=== PATIENT | male | born 1960 | race African-American/Black ===

== ENCOUNTER 2017-03-07 16:36 | Inpatient (IN) | payer OTHER ==
[~2017-03-07] VITALS: Ht 182.9 cm; Wt 68.0 kg
[2017-03-07] MEDS ORDERED: Ipratropium 0.02% Inh Soln 2.5ml UD HHN ONE (16:45)
[2017-03-07] MEDS ORDERED: Albuterol ud Inhalation HHN ONE (16:45)
[2017-03-07] MEDS ORDERED: CARVEDILOL6.25 MG GT (16:51)
[2017-03-07] MEDS ORDERED: COUMADIN7.5 MG GT (16:51)
[2017-03-07] MEDS ORDERED: ASPIR 8181 MG GT (16:51)
[2017-03-07] MEDS ORDERED: AMIODARONE HCL100 MG GT (16:51)
[2017-03-07] MEDS ORDERED: ZOFRAN 4 MG4 MG/2 ML IM (16:51)
[2017-03-07] MEDS ORDERED: KEPPRA XR500 MG GT (16:51)
[2017-03-07] MEDS ORDERED: ACETAMINOP160 MG/51 GT (16:51)
[2017-03-07] MEDS ORDERED: VANCOMYCIN1 GM/2502 IVPB (16:51)
[2017-03-07] MEDS ORDERED: FUROSEMIDE40 MG GT (16:51)
[2017-03-07] MEDS ORDERED: DOCUSIL100 M1 GT (16:54)
[2017-03-07 17:10] LABS: MEAN CORPUSCULAR HEMOGLOBIN 25.3 PG (27.0-31.0); MEAN CORPUSCULAR HGB CONC 32.2 G/DL (32.0-36.0); MEAN CORPUSCULAR VOLUME 79 FL (80-99); MEAN PLATELET VOLUME 5.5 FL (6.5-10.1); PLATELET COUNT 569 K/UL (150-450); RED CELL DISTRIBUTION WIDTH 19.1 % (11.6-14.8)
[2017-03-07 17:48] LABS: ALANINE AMINOTRANSFERASE 381 U/L (3-41); ALBUMIN/GLOBULIN RATIO 0.5 (1.0-2.7); ANION GAP 12 (5-15); ASPARTATE AMINO TRANSFERASE 288 U/L (5-40); CALCIUM 9.5 mg/dL (8.6-10.2); CARBON DIOXIDE 28 mEQ/L (20-30); CHLORIDE 92 mEQ/L (98-107); CREATININE 0.6 mg/dL (0.7-1.2); GLOMERULAR FILTRATION RATE > 60 mL/min (>60); HEMOLYSIS 7; POTASSIUM 5.1 mEQ/L (3.4-4.9); SODIUM 132 mEQ/L (135-145); TOTAL PROTEIN 7.6 g/dL (6.6-8.7)
[2017-03-07 17:53] LABS: TROPONIN I < 0.30 ng/mL (<=0.30)
[2017-03-07 17:58] LABS: CKMB < 1.5 ng/mL (< 6.7)
[2017-03-07 18:00] VITALS: BP 106/69
[2017-03-07 18:17] LABS: ANISOCYTOSIS 1+; BAND NEUTROPHILS % (MANUAL) 1 % (0-8); BASOPHILS % (MANUAL) 0 % (0-2); EOSINOPHILS % (MANUAL) 1 % (0-3); HYPOCHROMASIA 1+; LYMPHOCYTES % (MANUAL) 16 % (20-45); NEUTROPHILS % (MANUAL) 72 % (45-75); PLATELET ESTIMATE INCREASED; PLATELET MORPHOLOGY NORMAL; TOTAL CELLS COUNTED 100
[2017-03-07] MEDS ORDERED: Cefepime 1gm vial ONE (18:42)
[2017-03-07] MEDS ORDERED: Azithromycin Inj IV ONE (18:43)
[2017-03-07] MEDS ORDERED: Azithromycin 500 MG in NS 275 ML IV ONE (18:45)
[2017-03-07] MEDS ORDERED: Cefepime HCl 1 GM in NS 55 ML IV ONE (18:45)
[2017-03-07 19:12] LABS: APPEARANCE,URINE CLEAR; KETONES,URINE NEGATIVE (NEGATIVE); LEUKOCYTE ESTERASE ,URINE NEGATIVE (NEGATIVE); NITRITE,URINE NEGATIVE (NEGATIVE); PH,URINE 7 (4.5-8.0); PROTEIN,URINE 1+ (NEGATIVE); UROBILINOGEN,URINE NORMAL MG/DL (0.0-1.0)
[2017-03-07 19:15] VITALS: BP 91/57
[2017-03-07 19:24] LABS: BACTERIA,URINE FEW /HPF; RBC,URINE 0-2 /HPF (0 - 0); WBC,URINE 0-2 /HPF (0 - 0)
[2017-03-07] MEDS ORDERED: LEVETIRACE100 MG/1 M GT (20:04)
[2017-03-07] MEDS ORDERED: LISINOPRIL10 MG ORAL (20:09)
[2017-03-07] MEDS ORDERED: OMEPRAZOLE40 M1 ORAL (20:09)
[2017-03-07] MEDS ORDERED: DOCUSATE SODIU100 MG ORAL (20:12)
[2017-03-07] MEDS ORDERED: NORCO 5-325 TA1 EACH ORAL (20:14)
[2017-03-07] MEDS ORDERED: SPIRONOLACTONE25 MG ORAL (20:14)
[2017-03-07] MEDS ORDERED: ZINC SULFATE220 M1 ORAL (20:17)
[2017-03-07] MEDS ORDERED: VITAMIN C500 M1 ORAL (20:17)
[2017-03-07] MEDS ORDERED: MULTI-DELYN237 ML GT (20:17)
[2017-03-07] MEDS ORDERED: LACTULOSE20 GM/301 ORAL (20:18)
[2017-03-07 20:39] VITALS: BP 91/57
[2017-03-07] MEDS ORDERED: DuoNeb 0.5-3(2.5)mg/3ml neb HHN PRN (21:30)
[2017-03-07] MEDS ORDERED: LORazepam Inj 2mg/ml 1ml IV PRN (21:30)
[2017-03-07] MEDS ORDERED: Morphine Sulfate 4mg/ml Inj IVP PRN (21:30)
[2017-03-07] MEDS ORDERED: Norco 5mg/325mg tab ORAL PRN (21:30)
[2017-03-07] MEDS ORDERED: Miralax 17gm pkt ORAL PRN (21:30)
--- NOTE | 2017-03-07 21:38 | Emergency Room Report ---
History of Present Illness General Chief Complaint: General Complaint Source: Medical Record, EMS Present Illness HPI 57-year-old male presents ED for evaluation. Patient resides in [facility]. Patient has a trach and is on humidified air. Per EMS patient was breathing rapidly today at [facility]. O2 saturations dropped. Patient was brought in for evaluation. Patient looks more comfortable on initial exam. O2 saturations okay. Crackles on exam. Patient unable to provide any additional history at this time. No reported fevers or chills. No other aggravating relieving factors. No other associated symptoms Allergies: Coded Allergies: No Known Allergies (Unverified , 03/07/17) Patient History Past Medical History: HTN, AFib, CVA/TIA Past Surgical History: other - trach Pertinent Family History: none Social History: Denies: alcohol use, drug use, smoking Immunizations: UTD Reviewed Nursing Documentation: PMH: Agreed, PSxH: Agreed Nursing Documentation-PMH Hx Cardiac Problems: Yes - a fib Hx Hypertension: Yes Hx Pacemaker: No Hx Diabetes: No Hx Cerebrovascular Accident: Yes Hx Seizures: No Review of Systems All Other Systems: negative except mentioned in HPI Physical Exam Vital Signs Date Time Temp Pulse Resp B/P Pulse Ox O2 Delivery O2 Flow Rate FiO2 03/07/17 16:22 98.4 105 22 112/74 97 Room Air 03/07/17 16:49 5.0 50 Sp02 EP Interpretation: reviewed, normal General Appearance: no apparent distress, alert, GCS 15, non-toxic Head: normocephalic Eyes: bilateral eye PERRL, bilateral eye normal inspection ENT: normal ENT inspection Neck: tracheotomy Respiratory: accessory muscle use, crackles Cardiovascular #1: regular rate, rhythm, no edema Gastrointestinal: normal inspection Rectal: deferred Genitourinary: no CVA tenderness Musculoskeletal: normal inspection Neurologic: alert, oriented x3, responsive, motor strength/tone normal, sensory intact Psychiatric: normal inspection Skin: normal inspection Lymphatic: normal inspection Medical Decision Making Diagnostic Impression: Primary Impression: Pneumonia Qualified Codes: J18.1 - Lobar pneumonia, unspecified organism Additional Impressions: CHF (congestive heart failure) Qualified Codes: I50.9 - Heart failure, unspecified Respiratory distress ER Course Hospital Course 57-year-old M presenting to ED with respiratory distress, crackes, tachynpea Differential diagnoses include: Pneumonia, CHF exacerbation, pneumothorax, fluid overload Clinical course Patient placed on stretcher. 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 After initial history and physical, I ordered nebulizer treatments. I ordered labs, IV fluids, EKG, chest x-ray, blood cultures, UA. Labs -leukocytosis noted, hemoglobin/hematocrit stable, electrolytes okay, lactate okay troponins negative, BNP elevated CXR - R middle lobe infiltrate EKG - sinus tachycardia, no acute changes patient suctioned by respiratory therapists. Tachypnea improving. abx given. Case discussed with Dr. Moses and he agreed to the patient to his service for further care and support I feel this is a highly complex case requiring extensive working including EKG/ Rhythm strip, Xray/CT/US, Blood/urine lab work, repeat exams while in ED, and administration of strong opiates/narcotics for pain control, admission to hospital or close patient follow up. Diagnosis - pneumonia, CHF, resp distress Patient admitted to telemetry in serious condition Labs Test 03/07/17 16:52 03/07/17 18:06 White Blood Count 18.0 K/UL (4.8-10.8) Red Blood Count 3.90 M/UL (4.70-6.10) Hemoglobin 9.8 G/DL (14.2-18.0) Hematocrit 30.6 % (42.0-52.0) Mean Corpuscular Volume 79 FL (80-99) Mean Corpuscular Hemoglobin 25.3 PG (27.0-31.0) Mean Corpuscular Hemoglobin Concent 32.2 G/DL (32.0-36.0) Red Cell Distribution Width 19.1 % (11.6-14.8) Platelet Count 569 K/UL (150-450) Mean Platelet Volume 5.5 FL (6.5-10.1) Neutrophils (%) (Auto) % (45.0-75.0) Lymphocytes (%) (Auto) % (20.0-45.0) Monocytes (%) (Auto) % (1.0-10.0) Eosinophils (%) (Auto) % (0.0-3.0) Basophils (%) (Auto) % (0.0-2.0) Differential Total Cells Counted 100 Neutrophils % (Manual) 72 % (45-75) Lymphocytes % (Manual) 16 % (20-45) Monocytes % (Manual) 10 % (1-10) Eosinophils % (Manual) 1 % (0-3) Basophils % (Manual) 0 % (0-2) Band Neutrophils 1 % (0-8) Platelet Estimate Increased Platelet Morphology Normal Hypochromasia 1+ Anisocytosis 1+ Sodium Level 132 mEQ/L (135-145) Potassium Level 5.1 mEQ/L (3.4-4.9) Chloride Level 92 mEQ/L (98-107) Carbon Dioxide Level 28 mEQ/L (20-30) Anion Gap 12 (5-15) Blood Urea Nitrogen 32 mg/dL (7-23) Creatinine 0.6 mg/dL (0.7-1.2) Estimat Glomerular Filtration Rate > 60 mL/min (>60) Glucose Level 114 mg/dL (74-106) Lactic Acid Level 0.90 mmol/L (0.66-2.22) Calcium Level 9.5 mg/dL (8.6-10.2) Total Bilirubin 0.3 mg/dL (0.0-1.2) Aspartate Amino Transf (AST/SGOT) 288 U/L (5-40) Alanine Aminotransferase (ALT/SGPT) 381 U/L (3-41) Alkaline Phosphatase 190 U/L (40-129) Total Creatine Kinase 57 U/L (38-174) Creatine Kinase MB < 1.5 ng/mL (< 6.7) Creatine Kinase MB Relative Index Troponin I < 0.30 ng/mL (<=0.30) Pro-B-Type Natriuretic Peptide 3179 pg/mL (0-125) Total Protein 7.6 g/dL (6.6-8.7) Albumin 2.6 g/dL (3.5-5.2) Globulin 5.0 g/dL Albumin/Globulin Ratio 0.5 (1.0-2.7) Urine Color Pale yellow Urine Appearance Clear Urine pH 7 (4.5-8.0) Urine Specific [place] 1.005 (1.005-1.035) Urine Protein 1+ (NEGATIVE) Urine Glucose (UA) Negative (NEGATIVE) Urine Ketones Negative (NEGATIVE) Urine Occult Blood Negative (NEGATIVE) Urine Nitrite Negative (NEGATIVE) Urine Bilirubin Negative (NEGATIVE) Urine Urobilinogen Normal MG/DL (0.0-1.0) Urine Leukocyte Esterase Negative (NEGATIVE) Urine RBC 0-2 /HPF (0 - 0) Urine WBC 0-2 /HPF (0 - 0) Urine Squamous Epithelial Cells None /LPF (NONE/OCC) Urine Bacteria Few /HPF (NONE) EKG Diagnostic Results Rate: tachycardiac Rhythm: NSR ST Segments: no acute changes ASA given to the pt in ED: No Rhythm Strip Diag. Results EP Interpretation: yes Rhythm: NSR, no PVC's, no ectopy Chest X-Ray Diagnostic Results EP Interpretation: Yes Findings: no pneumothorax, no acute cardiopulmonary disease, other - cardiomegaly. pacemaker. R infiltrate/atelectasis Number of Views: 1 Last Vital Signs Date Time Temp Pulse Resp B/P Pulse Ox O2 Delivery O2 Flow Rate FiO2 03/07/17 20:39 106 32 91/57 100 Trach Collar 5.0 03/07/17 19:45 50 03/07/17 19:15 97.8 Status: improved Disposition: ADMITTED INPATIENT Condition: Serious Referrals: JUAN C KNIGHT (PCP) LUCIANA PATEL M.D. Mar 07, 2017 21:38
[2017-03-07 22:43] VITALS: BP 90/58
[2017-03-07] MEDS: levETIRAcetam 500mg/5ml Liquid GT SCH (22:58)
[2017-03-07] MEDS: Heparin 5000 units/ml inj SUBQ SCH (23:00)
[2017-03-07] MEDS: Carvedilol 6.25mg Tab GT SCH (23:00)
[2017-03-08] VITALS (11 sets, daily range): BP systolic 91–129; BP diastolic 56–65
[2017-03-08] MEDS ORDERED: Piperacillin/Tazobactam 3.375 GM in NS 110 ML IVPB SCH ×2
[2017-03-08] MEDS ORDERED: Vancomycin 1gm inj IVPB ONE (03:41)
[2017-03-08] MEDS ORDERED: Vancomycin 1 GM in D5W 275 ML IVPB SCH ×2 (04:00→16:00)
[2017-03-08 05:36] LABS: BASOPHILS % (AUTO) 0.5 % (0.0-2.0); EOSINOPHILS % (AUTO) 1.3 % (0.0-3.0); LYMPHOCYTES % (AUTO) 11.7 % (20.0-45.0); MEAN CORPUSCULAR HEMOGLOBIN 23.8 PG (27.0-31.0); MEAN CORPUSCULAR HGB CONC 30.6 G/DL (32.0-36.0); MEAN CORPUSCULAR VOLUME 78 FL (80-99); MEAN PLATELET VOLUME 5.6 FL (6.5-10.1); MONOCYTES % (AUTO) 8.5 % (1.0-10.0); NEUTROPHILS % (AUTO) 78.1 % (45.0-75.0); PLATELET COUNT 639 K/UL (150-450); RED BLOOD COUNT 4.16 M/UL (4.70-6.10); RED CELL DISTRIBUTION WIDTH 19.6 % (11.6-14.8); WHITE BLOOD COUNT 16.4 K/UL (4.8-10.8)
[2017-03-08 05:46] LABS: ANION GAP 14 (5-15); CALCIUM 9.3 mg/dL (8.6-10.2); CARBON DIOXIDE 26 mEQ/L (20-30); CHLORIDE 96 mEQ/L (98-107); CREATININE 0.5 mg/dL (0.7-1.2); GLOMERULAR FILTRATION RATE > 60 mL/min (>60); HEMOLYSIS 0; PHOSPHORUS 3.8 mg/dL (2.5-4.8); POTASSIUM 5.1 mEQ/L (3.4-4.9); SODIUM 136 mEQ/L (135-145)
[2017-03-08] MEDS ORDERED: Zosyn 4.5gm inj ONE (05:46)
[2017-03-08] MEDS: Zosyn 4.5gm q8h **Extended infusion IVPB SCH ×6 (05:49→21:48)
[2017-03-08] MEDS: Amiodarone 200mg tab GT SCH (08:47)
[2017-03-08] MEDS: Pantoprazole Inj IV SCH (08:47)
[2017-03-08] MEDS: Carvedilol 6.25mg Tab GT SCH ×2 (08:47→21:49)
[2017-03-08] MEDS: levETIRAcetam 500mg/5ml Liquid GT SCH ×2 (08:47→21:49)
[2017-03-08] MEDS: Zinc Sulfate 220mg cap ORAL SCH (08:47)
[2017-03-08] MEDS: Aspirin Baby 81mg GT SCH (08:47)
[2017-03-08] MEDS: Heparin 5000 units/ml inj SUBQ SCH (08:55)
--- NOTE | 2017-03-08 08:55 | History and Physical ---
History of Present Illness General Date patient seen: Mar 08, 2017 Reason for Hospitalization: General Complaint Present Illness HPI 57-year-old male with hx of chronic Trach, Peg, skilled nursing resident presented to ED for evaluation of breathing rapidly at skilled nursing. His O2 saturations dropped. Patient unable to provide any additional history at this time. No reported fevers or chills. Pt' cxr showed bilateral infiltrate. Allergies: Coded Allergies: No Known Allergies (Unverified , 03/07/17) Medication History Scheduled Amiodarone Hcl (Amiodarone Hcl), 200 MG GT DAILY, (Reported) Ascorbic Acid* (Vitamin C*), 500 MG ORAL DAILY, (Reported) Aspirin* (Aspir 81*), 81 MG GT DAILY, (Reported) Carvedilol* (Carvedilol*), 6.25 MG GT BID, (Reported) Docusate Sodium* (Docusate Sodium*), 100 MG ORAL TWICE A DAY, (Reported) Furosemide* (Lasix*), 60 MG GT DAILY, (Reported) Levetiracetam* (Levetiracetam*), 500 MG GT BID, (Reported) Lisinopril* (Lisinopril*), 10 MG ORAL DAILY, (Reported) Multivitamin Liquid* (Multi-Delyn*), 5 ML GT DAILY, (Reported) Omeprazole (Omeprazole), 40 MG ORAL DAILY, (Reported) Spironolactone* (Aldactone*), 25 MG ORAL DAILY, (Reported) Warfarin Sod (Coumadin*), 7.5 MG GT DAILY, (Reported) Zinc Sulfate (Zinc Sulfate*), 220 MG ORAL DAILY, (Reported) Scheduled PRN Hydrocodone Bit/Acetaminophen 5-325* ([place] 5-325*), 1 TAB ORAL Q4H PRN for For Pain, (Reported) Miscellaneous Medications Lactulose (Lactulose*), 30 ML ORAL, (Reported) Discontinued Medications Acetaminophen* (Acetaminophen*), 650 MG GT Q6H PRN for Mild Pain/Temp > 100.5, ( Reported) Discontinued Reason: Pt stopped taking med Levetiracetam (Keppra Xr), 1,000 MG GT BID, (Reported) Discontinued Reason: Prescription changed Ondansetron* (Zofran*), 4 MG IM Q6H PRN for Nausea & Vomiting, (Reported) Discontinued Reason: Pt stopped taking med Vancomycin Hcl/D5w (Vancomycin-D5w 1 G/250 Ml), 1 GM IVPB EVERY 12 HOURS, ( Reported) Discontinued Reason: Pt stopped taking med Patient History Healthcare decision maker N Resuscitation status Advanced Directive on File Past Medical/Surgical History Past Medical/Surgical History: (1) Chronic respiratory acidosis (2) Feeding by G-tube Review of Systems All Other Systems: negative except mentioned in HPI Physical Exam General Appearance: cachetic Lines, tubes and drains: peripheral, trach, gtube HEENT: normocephalic Neck: non-tender, normal alignment Respiratory/Chest: chest wall non-tender, lungs clear Cardiovascular/Chest: normal peripheral pulses Abdomen: normal bowel sounds, non tender Genitourinary/Rectal: normal genital exam, normal rectal exam Last 24 Hour Vital Signs Date Time Temp Pulse Resp B/P Pulse Ox O2 Delivery O2 Flow Rate FiO2 03/08/17 07:18 98 Trach Collar 12.0 50 03/08/17 07:18 Trach Collar 5.0 50 03/08/17 07:05 97.1 99 33 97/59 99 Trach Collar 5.0 03/08/17 05:56 97.9 97 25 94/58 100 Room Air 03/08/17 04:11 99 28 95/65 99 Trach Collar 5.0 03/08/17 03:09 100 29 95/59 99 Trach Collar 5.0 03/08/17 02:26 98.4 101 31 100/56 100 Trach Collar 5.0 03/08/17 02:00 Trach Collar 5.0 50 03/08/17 02:00 100 Trach Collar 12.0 50 03/08/17 01:11 105 32 91/56 100 Trach Collar 5.0 03/07/17 22:43 97.8 106 35 90/58 100 Trach Collar 5.0 03/07/17 20:39 106 32 91/57 100 Trach Collar 5.0 03/07/17 19:45 100 Trach Collar 12.0 50 03/07/17 19:15 97.8 107 33 91/57 100 Trach Collar 5.0 03/07/17 18:00 98.4 107 32 106/69 100 Trach Collar 5.0 50 03/07/17 17:54 Trach Collar 5.0 50 03/07/17 17:01 108 32 100 Trach Collar 8.0 03/07/17 17:00 105 35 Trach Collar 03/07/17 16:49 100 Trach Collar 5.0 50 03/07/17 16:22 98.4 105 22 112/74 97 Room Air Intake and Output 03/07/17 03/08/17 18:59 06:59 Intake Total 500 ml 1215 ml Output Total 1040 ml Balance 500 ml 175 ml Intake IV Total 500 ml 1215 ml Output Urine Total 1040 ml Laboratory Tests Test 03/07/17 16:52 03/07/17 18:06 03/08/17 04:01 White Blood Count 18.0 K/UL (4.8-10.8) H 16.4 K/UL (4.8-10.8) H Red Blood Count 3.90 M/UL (4.70-6.10) L 4.16 M/UL (4.70-6.10) L Hemoglobin 9.8 G/DL (14.2-18.0) L 9.9 G/DL (14.2-18.0) L Hematocrit 30.6 % (42.0-52.0) L 32.3 % (42.0-52.0) L Mean Corpuscular Volume 79 FL (80-99) L 78 FL (80-99) L Mean Corpuscular Hemoglobin 25.3 PG (27.0-31.0) L 23.8 PG (27.0-31.0) L Mean Corpuscular Hemoglobin Concent 32.2 G/DL (32.0-36.0) 30.6 G/DL (32.0-36.0) L Red Cell Distribution Width 19.1 % (11.6-14.8) H 19.6 % (11.6-14.8) H Platelet Count 569 K/UL (150-450) H 639 K/UL (150-450) H Mean Platelet Volume 5.5 FL (6.5-10.1) L 5.6 FL (6.5-10.1) L Neutrophils (%) (Auto) % (45.0-75.0) 78.1 % (45.0-75.0) H Lymphocytes (%) (Auto) % (20.0-45.0) 11.7 % (20.0-45.0) L Monocytes (%) (Auto) % (1.0-10.0) 8.5 % (1.0-10.0) Eosinophils (%) (Auto) % (0.0-3.0) 1.3 % (0.0-3.0) Basophils (%) (Auto) % (0.0-2.0) 0.5 % (0.0-2.0) Differential Total Cells Counted 100 Neutrophils % (Manual) 72 % (45-75) Lymphocytes % (Manual) 16 % (20-45) L Monocytes % (Manual) 10 % (1-10) Eosinophils % (Manual) 1 % (0-3) Basophils % (Manual) 0 % (0-2) Band Neutrophils 1 % (0-8) Platelet Estimate Increased H Platelet Morphology Normal Hypochromasia 1+ Anisocytosis 1+ Sodium Level 132 mEQ/L (135-145) L 136 mEQ/L (135-145) Potassium Level 5.1 mEQ/L (3.4-4.9) H 5.1 mEQ/L (3.4-4.9) H Chloride Level 92 mEQ/L (98-107) L 96 mEQ/L (98-107) L Carbon Dioxide Level 28 mEQ/L (20-30) 26 mEQ/L (20-30) Anion Gap 12 (5-15) 14 (5-15) Blood Urea Nitrogen 32 mg/dL (7-23) H 29 mg/dL (7-23) H Creatinine 0.6 mg/dL (0.7-1.2) L 0.5 mg/dL (0.7-1.2) L Estimat Glomerular Filtration Rate > 60 mL/min (>60) > 60 mL/min (>60) Glucose Level 114 mg/dL (74-106) H 111 mg/dL (74-106) H Lactic Acid Level 0.90 mmol/L (0.66-2.22) Calcium Level 9.5 mg/dL (8.6-10.2) 9.3 mg/dL (8.6-10.2) Total Bilirubin 0.3 mg/dL (0.0-1.2) Aspartate Amino Transf (AST/SGOT) 288 U/L (5-40) H Alanine Aminotransferase (ALT/SGPT) 381 U/L (3-41) H Alkaline Phosphatase 190 U/L (40-129) H Total Creatine Kinase 57 U/L (38-174) Creatine Kinase MB < 1.5 ng/mL (< 6.7) Creatine Kinase MB Relative Index Troponin I < 0.30 ng/mL (<=0.30) Pro-B-Type Natriuretic Peptide 3179 pg/mL (0-125) H Total Protein 7.6 g/dL (6.6-8.7) Albumin 2.6 g/dL (3.5-5.2) L 2.3 g/dL (3.5-5.2) L Globulin 5.0 g/dL Albumin/Globulin Ratio 0.5 (1.0-2.7) L Urine Color Pale yellow Urine Appearance Clear Urine pH 7 (4.5-8.0) Urine Specific [place] 1.005 (1.005-1.035) Urine Protein 1+ (NEGATIVE) H Urine Glucose (UA) Negative (NEGATIVE) Urine Ketones Negative (NEGATIVE) Urine Occult Blood Negative (NEGATIVE) Urine Nitrite Negative (NEGATIVE) Urine Bilirubin Negative (NEGATIVE) Urine Urobilinogen Normal MG/DL (0.0-1.0) Urine Leukocyte Esterase Negative (NEGATIVE) Urine RBC 0-2 /HPF (0 - 0) H Urine WBC 0-2 /HPF (0 - 0) Urine Squamous Epithelial Cells None /LPF (NONE/OCC) Urine Bacteria Few /HPF (NONE) Phosphorus Level 3.8 mg/dL (2.5-4.8) Height (Feet): 6 Height (Inches): 0.00 Weight (Pounds): 150 Medications Current Medications Medications (Trade) Dose Ordered Sig/Tameka Route PRN Reason Start Time Stop Time Status Last Admin Dose Admin Acetaminophen (Tylenol) 650 mg Q4H PRN ORAL FEVER 03/07/17 21:30 04/06/17 21:29 Acetaminophen/ Hydrocodone Bitart ([place] 5/325) 1 tab Q4H PRN ORAL Moderate Pain (Pain Scale 4-6) 03/07/17 21:30 03/14/17 21:29 Albuterol/ Ipratropium 3 ml 3 ml EVERY 4 HOURS PRN HHN Shortness of Breath 03/07/17 21:30 03/12/17 21:29 Amiodarone HCl (Cordarone) 200 mg DAILY GT 03/08/17 09:00 04/07/17 08:59 Aspirin (ASA) 81 mg DAILY GT 03/08/17 09:00 04/07/17 08:59 Carvedilol (Coreg) 6.25 mg Q12HR GT 03/07/17 23:00 04/06/17 22:59 Dextrose (Dextrose 50%) STAT PRN IV Hypoglycemia 03/07/17 21:30 04/06/17 21:29 Heparin Sodium (Porcine) (Heparin 5000 units/ml) 5,000 units EVERY 12 HOURS SUBQ 03/07/17 23:00 04/06/17 22:59 03/07/17 23:00 Levetiracetam (Keppra) 500 mg Q12HR GT 03/07/17 23:00 04/06/17 22:59 03/07/17 22:58 Lorazepam (Ativan 2mg/ml 1ml) 2 mg EVERY 2 HOURS PRN IV For Anxiety 03/07/17 21:30 03/14/17 21:29 Morphine Sulfate (Morphine Sulfate) 4 mg EVERY 4 HOURS PRN IVP Severe Pain (Pain Scale 7-10) 03/07/17 21:30 03/14/17 21:29 Ondansetron HCl (Zofran) 4 mg Q6H PRN IVP Nausea & Vomiting 03/07/17 21:30 04/06/17 21:29 Pantoprazole 40 mg 40 mg DAILY IV 03/08/17 09:00 04/07/17 08:59 Piperacillin Sod/ Tazobactam Sod/ Dextrose (Zosyn/D5W) 110 ml @ 27.5 mls/hr EVERY 8 HOURS IVPB 03/08/17 06:00 03/13/17 05:59 03/08/17 05:49 Polyethylene Glycol (Miralax) 17 gm DAILYPRN PRN ORAL Constipation 03/07/17 21:30 04/06/17 21:29 Vancomycin HCl/ Dextrose (Vancomycin/D5W) 275 ml @ 183.3 mls/ hr Q8H IVPB 03/08/17 04:00 03/13/17 03:59 03/08/17 03:45 Zinc Sulfate (Zinc Sulfate) 220 mg DAILY ORAL 03/08/17 09:00 04/07/17 08:59 Assessment/Plan Problem List: (1) Respiratory distress ICD Codes: R06.00 - Dyspnea, unspecified SNOMED: 758112755 (2) Chronic respiratory acidosis ICD Codes: E87.2 - Acidosis SNOMED: 9310565 (3) Feeding by G-tube ICD Codes: Z93.1 - Gastrostomy status SNOMED: 550671927, 721852795 (4) CHF (congestive heart failure) ICD Codes: I50.9 - Heart failure, unspecified SNOMED: 63148054 Qualifiers: Qualified Codes: I50.9 - Heart failure, unspecified (5) Pneumonia ICD Codes: J18.9 - Pneumonia, unspecified organism SNOMED: 266452989 Qualifiers: Qualified Codes: J18.1 - Lobar pneumonia, unspecified organism Assessment/Plan IV antibiotics check cultures f/u wbc cardio to see. dvt respiratory treatment ODETET SMILEY Mar 08, 2017 08:55
--- NOTE | 2017-03-08 10:35 | Diagnostic Imaging Report ---
Indications: Shortness of breath Technique: Portable AP chest Findings: Comparison: None Cardiac silhouette enlarged. Pulmonary vascular redistribution. Bilateral interstitial infiltrates. Patchy consolidative opacity lateral right midlung, adjacent to right minor fissure. No definite pleural abnormality. Tracheostomy tube, left chest wall pacemaker, right upper chest the PICC, abdominal skin sherrill and soft tissue drain all in place. IMPRESSION: Findings suggest congestive heart failure Subsegmental atelectasis versus focal pneumonia right midlung Lines and tubes in place as described Pacemaker Recent abdominal surgery
[2017-03-08 11:56] LABS: INR 2.8 (0.9-1.1); PROTHROMBIN TIME 29.8 SEC (9.30-11.50)
[2017-03-08] MEDS ORDERED: Acetaminophen 650mg/20.3ml NG PRN (16:00)
[2017-03-08] MEDS: Acetaminophen 650mg/20.3ml NG PRN (16:27)
--- NOTE | 2017-03-08 16:30 | Cardiac Electrophysiology PN ---
Subjective Subjective Dictated:[id number] Well known to me from recent hospitaliozation at [facility] CHF, S[place] ICD, PAF, Endocarditis, Anoxic encephalopathy,Trach/PEG/ PNA Objective Last 24 Hour Vital Signs Date Time Temp Pulse Resp B/P Pulse Ox O2 Delivery O2 Flow Rate FiO2 03/08/17 16:00 100.9 111 19 102/63 99 Trach Collar 35 03/08/17 13:18 95 Trach Collar 10.0 40 03/08/17 13:18 Trach Collar 10.0 40 03/08/17 12:08 98.4 101 21 112/58 98 Trach Collar 35 03/08/17 12:00 102 03/08/17 08:47 105 129/59 03/08/17 08:00 106 03/08/17 08:00 98.7 105 20 129/59 95 Trach Collar 35 03/08/17 07:45 97.1 99 33 97/59 98 Trach Collar 12.0 50 03/08/17 07:18 98 Trach Collar 12.0 50 03/08/17 07:18 Trach Collar 5.0 50 03/08/17 07:05 97.1 99 33 97/59 99 Trach Collar 5.0 03/08/17 05:56 97.9 97 25 94/58 100 Room Air 03/08/17 04:11 99 28 95/65 99 Trach Collar 5.0 03/08/17 03:09 100 29 95/59 99 Trach Collar 5.0 03/08/17 02:26 98.4 101 31 100/56 100 Trach Collar 5.0 03/08/17 02:00 Trach Collar 5.0 50 03/08/17 02:00 100 Trach Collar 12.0 50 03/08/17 01:11 105 32 91/56 100 Trach Collar 5.0 03/07/17 22:43 97.8 106 35 90/58 100 Trach Collar 5.0 03/07/17 20:39 106 32 91/57 100 Trach Collar 5.0 03/07/17 19:45 100 Trach Collar 12.0 50 03/07/17 19:15 97.8 107 33 91/57 100 Trach Collar 5.0 03/07/17 18:00 98.4 107 32 106/69 100 Trach Collar 5.0 50 03/07/17 17:54 Trach Collar 5.0 50 03/07/17 17:01 108 32 100 Trach Collar 8.0 4/21/17 17:00 105 35 Trach Collar 03/07/17 16:49 100 Trach Collar 5.0 50 Intake and Output 03/07/17 03/08/17 19:00 07:00 Intake Total 500 ml 1215 ml Output Total 1040 ml Balance 500 ml 175 ml IV Total 500 ml 1215 ml Output Urine Total 1040 ml Laboratory Tests Test 03/07/17 16:52 03/07/17 18:06 03/08/17 04:01 03/08/17 11:30 White Blood Count 18.0 K/UL (4.8-10.8) H 16.4 K/UL (4.8-10.8) H Red Blood Count 3.90 M/UL (4.70-6.10) L 4.16 M/UL (4.70-6.10) L Hemoglobin 9.8 G/DL (14.2-18.0) L 9.9 G/DL (14.2-18.0) L Hematocrit 30.6 % (42.0-52.0) L 32.3 % (42.0-52.0) L Mean Corpuscular Volume 79 FL (80-99) L 78 FL (80-99) L Mean Corpuscular Hemoglobin 25.3 PG (27.0-31.0) L 23.8 PG (27.0-31.0) L Mean Corpuscular Hemoglobin Concent 32.2 G/DL (32.0-36.0) 30.6 G/DL (32.0-36.0) L Red Cell Distribution Width 19.1 % (11.6-14.8) H 19.6 % (11.6-14.8) H Platelet Count 569 K/UL (150-450) H 639 K/UL (150-450) H Mean Platelet Volume 5.5 FL (6.5-10.1) L 5.6 FL (6.5-10.1) L Neutrophils (%) (Auto) % (45.0-75.0) 78.1 % (45.0-75.0) H Lymphocytes (%) (Auto) % (20.0-45.0) 11.7 % (20.0-45.0) L Monocytes (%) (Auto) % (1.0-10.0) 8.5 % (1.0-10.0) Eosinophils (%) (Auto) % (0.0-3.0) 1.3 % (0.0-3.0) Basophils (%) (Auto) % (0.0-2.0) 0.5 % (0.0-2.0) Differential Total Cells Counted 100 Neutrophils % (Manual) 72 % (45-75) Lymphocytes % (Manual) 16 % (20-45) L Monocytes % (Manual) 10 % (1-10) Eosinophils % (Manual) 1 % (0-3) Basophils % (Manual) 0 % (0-2) Band Neutrophils 1 % (0-8) Platelet Estimate Increased H Platelet Morphology Normal Hypochromasia 1+ Anisocytosis 1+ Sodium Level 132 mEQ/L (135-145) L 136 mEQ/L (135-145) Potassium Level 5.1 mEQ/L (3.4-4.9) H 5.1 mEQ/L (3.4-4.9) H Chloride Level 92 mEQ/L (98-107) L 96 mEQ/L (98-107) L Carbon Dioxide Level 28 mEQ/L (20-30) 26 mEQ/L (20-30) Anion Gap 12 (5-15) 14 (5-15) Blood Urea Nitrogen 32 mg/dL (7-23) H 29 mg/dL (7-23) H Creatinine 0.6 mg/dL (0.7-1.2) L 0.5 mg/dL (0.7-1.2) L Estimat Glomerular Filtration Rate > 60 mL/min (>60) > 60 mL/min (>60) Glucose Level 114 mg/dL (74-106) H 111 mg/dL (74-106) H Lactic Acid Level 0.90 mmol/L (0.66-2.22) Calcium Level 9.5 mg/dL (8.6-10.2) 9.3 mg/dL (8.6-10.2) Total Bilirubin 0.3 mg/dL (0.0-1.2) Aspartate Amino Transf (AST/SGOT) 288 U/L (5-40) H Alanine Aminotransferase (ALT/SGPT) 381 U/L (3-41) H Alkaline Phosphatase 190 U/L (40-129) H Total Creatine Kinase 57 U/L (38-174) Creatine Kinase MB < 1.5 ng/mL (< 6.7) Creatine Kinase MB Relative Index Troponin I < 0.30 ng/mL (<=0.30) Pro-B-Type Natriuretic Peptide 3179 pg/mL (0-125) H Total Protein 7.6 g/dL (6.6-8.7) Albumin 2.6 g/dL (3.5-5.2) L 2.3 g/dL (3.5-5.2) L Globulin 5.0 g/dL Albumin/Globulin Ratio 0.5 (1.0-2.7) L Urine Color Pale yellow Urine Appearance Clear Urine pH 7 (4.5-8.0) Urine Specific [place] 1.005 (1.005-1.035) Urine Protein 1+ (NEGATIVE) H Urine Glucose (UA) Negative (NEGATIVE) Urine Ketones Negative (NEGATIVE) Urine Occult Blood Negative (NEGATIVE) Urine Nitrite Negative (NEGATIVE) Urine Bilirubin Negative (NEGATIVE) Urine Urobilinogen Normal MG/DL (0.0-1.0) Urine Leukocyte Esterase Negative (NEGATIVE) Urine RBC 0-2 /HPF (0 - 0) H Urine WBC 0-2 /HPF (0 - 0) Urine Squamous Epithelial Cells None /LPF (NONE/OCC) Urine Bacteria Few /HPF (NONE) Phosphorus Level 3.8 mg/dL (2.5-4.8) Prothrombin Time 29.8 SEC (9.30-11.50) H Prothromb Time International Ratio 2.8 (0.9-1.1) H DAMIR POOL Mar 08, 2017 16:30
[2017-03-08] MEDS ORDERED: Warfarin Sodium 7.5mg ORAL SCH (17:00)
[2017-03-08] MEDS: Vancomycin 750 MG in D5W 275 ML IVPB SCH (18:56)
[2017-03-09] VITALS: BP 97/55
--- NOTE | 2017-03-09 02:58 | Consultation ---
DATE OF CONSULTATION: CARDIOLOGY CONSULTATION CONSULTING PHYSICIAN: Tucker Ward M.D. REFERRING PHYSICIAN: Shani Moses M.D. REASON FOR CONSULTATION: Management of congestive heart failure. Evaluation of the patient's defibrillator. HISTORY OF PRESENT ILLNESS: The patient is a 57-year-old gentleman, who I am quite familiar with from his recent admission to [facility]. The patient has a history of hypertension, coronary artery disease as well as history of severe cardiomyopathy and history of [employer] Flo defibrillator implantation in the past. He also has a history of endocarditis. They are given transesophageal echocardiogram. The patient had pulseless electrical activity last month. He also has a history of liver cirrhosis, status post paracentesis. Currently, the patient has respiratory failure, status post tracheostomy and history of dysphagia, status post PEG placement. The patient was transferred from care home for evaluation of dropping O2 saturation as well as breathing rapidly. The patient was admitted for possible pneumonia and a Cardiology consultation was obtained for further evaluation. At the time of my evaluation, he was nonverbal and was unable to provide any meaningful information. PAST MEDICAL HISTORY: Include: 1. Hypertension. 2. Severe cardiomyopathy. 3. History of paroxysmal atrial fibrillation. 4. Status post pulseless activity during transesophageal echocardiogram. 5. Status post [employer] Flo defibrillator implantation. 6. status post tracheostomy. 7. Dysphagia, status post PEG placement. 8. Anoxic encephalopathy. REVIEW OF SYSTEMS: Cannot be obtained. PHYSICAL EXAMINATION: VITAL SIGNS: Blood pressure is 102/63, pulse 110, and temperature 100.9 degrees. HEAD AND NECK: Shows no JVD. Status post tracheostomy with a trach collar. CARDIOVASCULAR: Shows regular S1 and S2. No gallop. The defibrillator is in subclavian. ABDOMEN: Soft. There is a G-tube. EXTREMITIES: No pitting edema. LABORATORY DATA: White count 16.5, hemoglobin of 10, hematocrit 32.3, and platelets 239,000. Sodium 133, potassium 5.1, BUN of 29, creatinine 0.5, and glucose of 111. Troponin is negative. BNP 3179. ASSESSMENT AND PLAN: 1. Congestive heart failure. The patient has a history of cardiomyopathy. His BNP is more than 3000. We will hold off the diuretic at this time as the patient does not have any lower extremity edema. The patient has history of congestive heart failure and in view of the patient's pneumonia, the patient has risk of septic shock. 2. Cardiomyopathy, echocardiogram will be repeated. Continue Coreg 6.25 mg twice a day, Zestoril, and Aldactone. 3. Atrial fibrillation. Currently in sinus rhythm. Continue Coreg, amiodarone, and Coumadin per pharmacy. 4. Status post pulseless electrical activity during transesophageal echocardiogram per Dr. Castle with no clear etiology. The patient was ruled out for myocardial infarction as well as pulmonary embolus. 5. Status post tracheostomy, turned off the ventilator. 6. Dysphagia, status post percutaneous endoscopic gastrostomy placement. 7. Anoxic encephalopathy. 8. Pneumonia, on broad-spectrum intravenous antibiotics per Dr. Moses, vancomycin and Zosyn. Thank you very much, Dr. Moses, for allowing me to participate in the care of this patient. Please do not hesitate to contact me for any questions regarding my evaluation. Tucker Ward M.D. DR: Artis JOB#: [id number] CC:
[2017-03-09 04:00] VITALS: BP 96/56
[2017-03-09] MEDS: Vancomycin 750 MG in D5W 275 ML IVPB SCH ×2 (04:20→12:19)
[2017-03-09] MEDS: Zosyn 4.5gm q8h **Extended infusion IVPB SCH ×6 (06:13→21:23)
[2017-03-09 08:33] LABS: MEAN CORPUSCULAR HEMOGLOBIN 23.8 PG (27.0-31.0); MEAN CORPUSCULAR HGB CONC 30.3 G/DL (32.0-36.0); MEAN CORPUSCULAR VOLUME 78 FL (80-99); MEAN PLATELET VOLUME 5.8 FL (6.5-10.1); PLATELET COUNT 727 K/UL (150-450); RED BLOOD COUNT 3.95 M/UL (4.70-6.10); WHITE BLOOD COUNT 18.5 K/UL (4.8-10.8)
[2017-03-09 08:41] LABS: INR 4.1 (0.9-1.1); PROTHROMBIN TIME 44.1 SEC (9.30-11.50)
[2017-03-09 08:47] VITALS: BP 97/56
[2017-03-09 08:47] LABS: TROPONIN I < 0.30 ng/mL (<=0.30)
[2017-03-09] MEDS: Acetaminophen 650mg/20.3ml NG PRN (08:50)
[2017-03-09] MEDS: Pantoprazole Inj IV SCH (08:50)
[2017-03-09] MEDS: Amiodarone 200mg tab GT SCH (08:51)
[2017-03-09] MEDS: Aspirin Baby 81mg GT SCH (08:51)
[2017-03-09] MEDS: Zinc Sulfate 220mg cap ORAL SCH (08:51)
[2017-03-09] MEDS: Carvedilol 6.25mg Tab GT SCH ×2 (08:51→21:00)
[2017-03-09] MEDS: levETIRAcetam 500mg/5ml Liquid GT SCH ×2 (08:51→21:23)
[2017-03-09 08:53] LABS: ALANINE AMINOTRANSFERASE 297 U/L (3-41); ALBUMIN/GLOBULIN RATIO 0.4 (1.0-2.7); ANION GAP 14 (5-15); ASPARTATE AMINO TRANSFERASE 224 U/L (5-40); CALCIUM 9.1 mg/dL (8.6-10.2); CARBON DIOXIDE 26 mEQ/L (20-30); CHLORIDE 98 mEQ/L (98-107); CREATININE 0.7 mg/dL (0.7-1.2); GLOMERULAR FILTRATION RATE > 60 mL/min (>60); HEMOLYSIS 0; POTASSIUM 4.4 mEQ/L (3.4-4.9); SODIUM 138 mEQ/L (135-145); TOTAL PROTEIN 7.6 g/dL (6.6-8.7)
[2017-03-09] MEDS ORDERED: Lisinopril 10mg tab GT SCH (09:00)
--- NOTE | 2017-03-09 09:45 | Infectious Diseases Prog Note ---
Assessment/Plan Assessment/Plan ID consult dictated # [id number] Subjective Allergies: Coded Allergies: No Known Allergies (Unverified , 03/07/17) Objective Vital Signs Last 24 Hour Vital Signs Date Time Temp Pulse Resp B/P Pulse Ox O2 Delivery O2 Flow Rate FiO2 03/09/17 08:51 97/56 03/09/17 08:51 108 97/56 03/09/17 08:47 98.2 108 20 97/56 97 T-piece 10.0 03/09/17 05:13 100 03/09/17 04:00 98.6 102 21 96/56 99 03/09/17 00:54 99 03/09/17 00:50 97 T-piece 10.0 40 03/09/17 00:50 T-piece 10.0 40 03/09/17 00:00 97.8 104 19 97/55 97 03/08/17 22:50 111 03/08/17 21:49 102 94/56 03/08/17 21:06 97.9 102 20 94/56 97 Mechanical Ventilator 03/08/17 20:00 99.5 100 20 103/61 96 Trach Collar 35 03/08/17 20:00 99.5 100 28 103/61 96 T-piece 03/08/17 19:25 95 T-piece 10.0 40 03/08/17 19:25 T-piece 10.0 40 03/08/17 16:27 100.9 03/08/17 16:00 100.9 111 19 102/63 99 Trach Collar 35 03/08/17 16:00 111 03/08/17 13:18 95 Trach Collar 10.0 40 03/08/17 13:18 Trach Collar 10.0 40 03/08/17 12:08 98.4 101 21 112/58 98 Trach Collar 35 03/08/17 12:00 102 Height (Feet): 6 Height (Inches): 0.00 Weight (Pounds): 150 Microbiology Date/Time Source Procedure Growth Status 03/07/17 17:04 Blood Blood Culture - Preliminary NO GROWTH AFTER 24 HOURS Resulted 03/07/17 17:04 Blood Blood Culture - Preliminary NO GROWTH AFTER 24 HOURS Resulted 03/07/17 19:53 Nasal Nares MRSA Culture - Final NO METHICILLIN RESISTANT STAPH AUREUS... Complete 03/07/17 19:53 Rectum VRE Culture - Final Enterococcus Faecalis - Vre Complete Laboratory Tests Test 03/08/17 11:30 03/09/17 06:50 Prothrombin Time 29.8 SEC (9.30-11.50) H 44.1 SEC (9.30-11.50) H Prothromb Time International Ratio 2.8 (0.9-1.1) H 4.1 (0.9-1.1) H White Blood Count 18.5 K/UL (4.8-10.8) H Red Blood Count 3.95 M/UL (4.70-6.10) L Hemoglobin 9.4 G/DL (14.2-18.0) L Hematocrit 31.0 % (42.0-52.0) L Mean Corpuscular Volume 78 FL (80-99) L Mean Corpuscular Hemoglobin 23.8 PG (27.0-31.0) L Mean Corpuscular Hemoglobin Concent 30.3 G/DL (32.0-36.0) L Red Cell Distribution Width 20.0 % (11.6-14.8) H Platelet Count 727 K/UL (150-450) H Mean Platelet Volume 5.8 FL (6.5-10.1) L Neutrophils (%) (Auto) % (45.0-75.0) Lymphocytes (%) (Auto) % (20.0-45.0) Monocytes (%) (Auto) % (1.0-10.0) Eosinophils (%) (Auto) % (0.0-3.0) Basophils (%) (Auto) % (0.0-2.0) Neutrophils % (Manual) Pending Lymphocytes % (Manual) Pending Platelet Estimate Pending Platelet Morphology Pending Sodium Level 138 mEQ/L (135-145) Potassium Level 4.4 mEQ/L (3.4-4.9) Chloride Level 98 mEQ/L (98-107) Carbon Dioxide Level 26 mEQ/L (20-30) Anion Gap 14 (5-15) Blood Urea Nitrogen 25 mg/dL (7-23) H Creatinine 0.7 mg/dL (0.7-1.2) Estimat Glomerular Filtration Rate > 60 mL/min (>60) Glucose Level 129 mg/dL (74-106) H Calcium Level 9.1 mg/dL (8.6-10.2) Total Bilirubin 0.3 mg/dL (0.0-1.2) Aspartate Amino Transf (AST/SGOT) 224 U/L (5-40) H Alanine Aminotransferase (ALT/SGPT) 297 U/L (3-41) H Alkaline Phosphatase 224 U/L (40-129) H Troponin I < 0.30 ng/mL (<=0.30) Pro-B-Type Natriuretic Peptide 3476 pg/mL (0-125) H Total Protein 7.6 g/dL (6.6-8.7) Albumin 2.5 g/dL (3.5-5.2) L Globulin 5.1 g/dL Albumin/Globulin Ratio 0.4 (1.0-2.7) L Current Medications Medications (Trade) Dose Ordered Sig/Tameka Route PRN Reason Start Time Stop Time Status Last Admin Dose Admin Acetaminophen (Tylenol) 650 mg Q4H PRN NG Prn Headache/Temp > 101 03/08/17 16:15 04/07/17 16:14 03/09/17 08:50 Acetaminophen/ Hydrocodone Bitart ([place] 5/325) 1 tab Q4H PRN ORAL Moderate Pain (Pain Scale 4-6) 03/07/17 21:30 03/14/17 21:29 Albuterol/ Ipratropium (DuoNeb 0.5-3(2.5)mg/3ml) 3 ml EVERY 4 HOURS PRN HHN Shortness of Breath 03/07/17 21:30 03/12/17 21:29 Amiodarone HCl (Cordarone) 200 mg DAILY GT 03/08/17 09:00 04/07/17 08:59 03/09/17 08:51 Aspirin (ASA) 81 mg DAILY GT 03/08/17 09:00 04/07/17 08:59 03/09/17 08:51 Carvedilol (Coreg) 6.25 mg Q12HR GT 03/07/17 23:00 04/06/17 22:59 03/08/17 21:49 Dextrose (Dextrose 50%) STAT PRN IV Hypoglycemia 03/07/17 21:30 04/06/17 21:29 Levetiracetam (Keppra) 500 mg Q12HR GT 03/07/17 23:00 04/06/17 22:59 03/09/17 08:51 Lisinopril (Zestril) 10 mg DAILY GT 03/09/17 09:00 04/08/17 08:59 Lorazepam (Ativan 2mg/ml 1ml) 2 mg EVERY 2 HOURS PRN IV For Anxiety 03/07/17 21:30 03/14/17 21:29 Morphine Sulfate (Morphine Sulfate) 4 mg EVERY 4 HOURS PRN IVP Severe Pain (Pain Scale 7-10) 03/07/17 21:30 03/14/17 21:29 Ondansetron HCl (Zofran) 4 mg Q6H PRN IVP Nausea & Vomiting 03/07/17 21:30 04/06/17 21:29 Pantoprazole 40 mg 40 mg DAILY IV 03/08/17 09:00 04/07/17 08:59 03/09/17 08:50 Piperacillin Sod/ Tazobactam Sod/ Dextrose (Zosyn/D5W) 110 ml @ 27.5 mls/hr EVERY 8 HOURS IVPB 03/08/17 06:00 03/13/17 05:59 03/09/17 06:13 Polyethylene Glycol (Miralax) 17 gm DAILYPRN PRN ORAL Constipation 03/07/17 21:30 04/06/17 21:29 Vancomycin HCl/ Dextrose (Vancomycin/D5W) 275 ml @ 183.3 mls/ hr Q8HR@0400,1200,1800 IVPB 03/08/17 18:00 03/13/17 17:59 03/09/17 04:20 Warfarin Sodium 1 ea 1 ea DAILY PRN MISC Per rx protocol 03/08/17 09:00 04/07/17 08:59 Zinc Sulfate (Zinc Sulfate) 220 mg DAILY ORAL 03/08/17 09:00 04/07/17 08:59 03/09/17 08:51 CHRISTINE MERA Mar 09, 2017 09:45
[2017-03-09 10:14] LABS: ANISOCYTOSIS 2+; BAND NEUTROPHILS % (MANUAL) 0 % (0-8); BASOPHILS % (MANUAL) 0 % (0-2); EOSINOPHILS % (MANUAL) 1 % (0-3); HYPOCHROMASIA 1+; LYMPHOCYTES % (MANUAL) 6 % (20-45); MICROCYTES 1+; NEUTROPHILS % (MANUAL) 86 % (45-75); PLATELET ESTIMATE INCREASED; PLATELET MORPHOLOGY NORMAL; TOTAL CELLS COUNTED 100
--- NOTE | 2017-03-09 11:14 | Diagnostic Imaging Report ---
Indications: DYSPNEA Technique: Portable AP chest Findings: Comparison: 03/07/17 Cardiomegaly, pulmonary vascular redistribution, bilateral interstitial infiltrates persist, unchanged. Focal alveolar opacity right midlung has resolved. PICC has been withdrawn, tip now in the region of the right axillary vein. No new abnormality identified. IMPRESSION: Persistent bilateral congestive changes Disappearance of focal alveolar opacity right midlung. Rapidity of change favors resolution of atelectasis pulmonary edema over pneumonia Partial withdrawal PICC, still in usable position.
[2017-03-09 11:58] VITALS: BP 92/55
[2017-03-09] MEDS ORDERED: Tubing IV Secondary IV ONE (13:59)
[2017-03-09] MEDS ORDERED: NS 275ml ONE (13:59)
[2017-03-09] MEDS ORDERED: Sterile Water Irrig 1000ml IRRIG ONE (13:59)
[2017-03-09 15:30] VITALS: BP 95/57
[2017-03-09 16:44] LABS: ABG ALLEN TEST POSITIVE; ABG BASE EXCESS 2.6; ABG PCO2 38.5 mmHg (35.0-45.0)
--- NOTE | 2017-03-09 18:16 | Pulmonology Progress Note ---
Assessment/Plan Problems: (1) Respiratory distress (2) Chronic respiratory acidosis (3) Feeding by G-tube (4) CHF (congestive heart failure) (5) Pneumonia Assessment/Plan cxr better, but episodes of tachypnea echo result noted, EF of 35 optimize cardiac meds f/u cultures continue antibiotics tolerating feeding Subjective ROS Limited/Unobtainable: Yes Interval Events: open eyes, not communicating Allergies: Coded Allergies: No Known Allergies (Unverified , 03/07/17) Objective Last 24 Hour Vital Signs Date Time Temp Pulse Resp B/P Pulse Ox O2 Delivery O2 Flow Rate FiO2 03/09/17 16:00 103 03/09/17 15:30 98.4 96 28 95/57 96 T-piece 03/09/17 13:48 T-piece 10.0 40 03/09/17 13:47 99 T-piece 10.0 40 03/09/17 12:00 99 03/09/17 11:58 98.2 103 20 92/55 96 T-piece 03/09/17 09:20 98.2 03/09/17 08:51 97/56 03/09/17 08:51 108 97/56 03/09/17 08:47 98.2 108 20 97/56 97 T-piece 10.0 03/09/17 08:00 107 03/09/17 06:35 T-piece 10.0 40 03/09/17 06:35 99 T-piece 10.0 40 03/09/17 05:13 100 03/09/17 04:00 98.6 102 21 96/56 99 03/09/17 00:54 99 03/09/17 00:50 97 T-piece 10.0 40 03/09/17 00:50 T-piece 10.0 40 03/09/17 00:00 97.8 104 19 97/55 97 03/08/17 22:50 111 03/08/17 21:49 102 94/56 03/08/17 21:06 97.9 102 20 94/56 97 Mechanical Ventilator 03/08/17 20:00 99.5 100 20 103/61 96 Trach Collar 35 03/08/17 20:00 99.5 100 28 103/61 96 T-piece 03/08/17 19:25 95 T-piece 10.0 40 03/08/17 19:25 T-piece 10.0 40 Intake and Output 03/08/17 03/09/17 19:00 07:00 Intake Total 520.0 ml 60 ml Output Total 750 ml 750 ml Balance -230.0 ml -690 ml Intake Free Water 200 ml IV Total 110.0 ml Tube Feeding 210 ml 60 ml Output Urine Total 750 ml 750 ml Objective General Appearance: WD/WN HEENT: normocephalic, atraumatic, trach in place Respiratory/Chest: chest wall non-tender, lungs rhonchi Cardiovascular: normal peripheral pulses, normal rate, regular rhythm Abdomen: normal bowel sounds, soft, non tender, no organomegaly, Gtube Extremities: no cyanosis, no clubbing Skin: no rash, no lesions Microbiology Date/Time Source Procedure Growth Status 03/07/17 17:04 Blood Blood Culture - Preliminary NO GROWTH AFTER 24 HOURS Resulted 03/07/17 17:04 Blood Blood Culture - Preliminary NO GROWTH AFTER 24 HOURS Resulted 03/07/17 19:53 Nasal Nares MRSA Culture - Final NO METHICILLIN RESISTANT STAPH AUREUS... Complete 03/07/17 19:53 Rectum VRE Culture - Final Enterococcus Faecalis - Vre Complete Laboratory Tests 03/09/17 06:50: White Blood Count 18.5H, Red Blood Count 3.95L, Hemoglobin 9.4L, Hematocrit 31.0L, Mean Corpuscular Volume 78L, Mean Corpuscular Hemoglobin 23.8L, Mean Corpuscular Hemoglobin Concent 30.3L, Red Cell Distribution Width 20.0H, Platelet Count 727H, Mean Platelet Volume 5.8L, Neutrophils (%) (Auto) , Lymphocytes (%) (Auto) , Monocytes (%) (Auto) , Eosinophils (%) (Auto) , Basophils (%) (Auto) , Differential Total Cells Counted 100, Neutrophils % ( Manual) 86H, Lymphocytes % (Manual) 6L, Monocytes % (Manual) 7, Eosinophils % ( Manual) 1, Basophils % (Manual) 0, Band Neutrophils 0, Platelet Estimate IncreasedH, Platelet Morphology Normal, Hypochromasia 1+, Anisocytosis 2+, Microcytosis 1+, Prothrombin Time 44.1H, Prothromb Time International Ratio 4.1H , Sodium Level 138, Potassium Level 4.4, Chloride Level 98, Carbon Dioxide Level 26, Anion Gap 14, Blood Urea Nitrogen 25H, Creatinine 0.7, Estimat Glomerular Filtration Rate > 60, Glucose Level 129H, Calcium Level 9.1, Total Bilirubin 0.3, Aspartate Amino Transf (AST/SGOT) 224H, Alanine Aminotransferase (ALT/SGPT) 297H, Alkaline Phosphatase 224H, Troponin I < 0.30, Pro-B-Type Natriuretic Peptide 3476H, Total Protein 7.6, Albumin 2.5L, Globulin 5.1, Albumin/Globulin Ratio 0.4L 03/09/17 16:19: Arterial Blood pH 7.457H, Arterial Blood Partial Pressure CO2 38.5, Arterial Blood Partial Pressure O2 69.0L, Arterial Blood HCO3 26.6H, Arterial Blood Oxygen Saturation 93.0, Arterial Blood Base Excess 2.6, Son Test Positive 03/09/17 17:10: Vancomycin Level Trough 24.3H Current Medications Medications (Trade) Dose Ordered Sig/Tameka Route PRN Reason Start Time Stop Time Status Last Admin Dose Admin Acetaminophen (Tylenol) 650 mg Q4H PRN NG Prn Headache/Temp > 101 03/08/17 16:15 04/07/17 16:14 03/09/17 08:50 Acetaminophen/ Hydrocodone Bitart ([place] 5/325) 1 tab Q4H PRN ORAL Moderate Pain (Pain Scale 4-6) 03/07/17 21:30 03/14/17 21:29 Albuterol/ Ipratropium (DuoNeb 0.5-3(2.5)mg/3ml) 3 ml EVERY 4 HOURS PRN HHN Shortness of Breath 03/07/17 21:30 03/12/17 21:29 Amiodarone HCl (Cordarone) 200 mg DAILY GT 03/08/17 09:00 04/07/17 08:59 03/09/17 08:51 Aspirin (ASA) 81 mg DAILY GT 03/08/17 09:00 04/07/17 08:59 03/09/17 08:51 Carvedilol (Coreg) 6.25 mg Q12HR GT 03/07/17 23:00 04/06/17 22:59 03/08/17 21:49 Dextrose (Dextrose 50%) STAT PRN IV Hypoglycemia 03/07/17 21:30 04/06/17 21:29 Levetiracetam (Keppra) 500 mg Q12HR GT 03/07/17 23:00 04/06/17 22:59 03/09/17 08:51 Lisinopril 10 mg 10 mg DAILY GT 03/09/17 09:00 04/08/17 08:59 Lorazepam (Ativan 2mg/ml 1ml) 2 mg EVERY 2 HOURS PRN IV For Anxiety 03/07/17 21:30 03/14/17 21:29 Morphine Sulfate (Morphine Sulfate) 4 mg EVERY 4 HOURS PRN IVP Severe Pain (Pain Scale 7-10) 03/07/17 21:30 03/14/17 21:29 Ondansetron HCl (Zofran) 4 mg Q6H PRN IVP Nausea & Vomiting 03/07/17 21:30 04/06/17 21:29 Pantoprazole 40 mg 40 mg DAILY IV 03/08/17 09:00 04/07/17 08:59 03/09/17 08:50 Piperacillin Sod/ Tazobactam Sod/ Dextrose (Zosyn/D5W) 110 ml @ 27.5 mls/hr EVERY 8 HOURS IVPB 03/08/17 06:00 03/13/17 05:59 03/09/17 16:48 Polyethylene Glycol (Miralax) 17 gm DAILYPRN PRN ORAL Constipation 03/07/17 21:30 04/06/17 21:29 Vancomycin HCl (Vanco rx to dose) 1 ea DAILY PRN MISC per Rx protocol 03/09/17 20:00 04/08/17 19:59 Vancomycin HCl/ Dextrose (Vancomycin/D5W) 275 ml @ 183.708 mls/hr Q12HR@0100,1300 IVPB 03/10/17 01:00 03/15/17 00:59 Warfarin Sodium (Coumadin per pharmacy) 1 ea DAILY PRN MISC Per rx protocol 03/08/17 09:00 04/07/17 08:59 Zinc Sulfate (Zinc Sulfate) 220 mg DAILY ORAL 03/08/17 09:00 04/07/17 08:59 03/09/17 08:51 ODETTE SMILEY Mar 09, 2017 18:16
[2017-03-09 20:00] VITALS: BP 103/62
[2017-03-09 20:47] LABS: ABG BASE EXCESS 3.5; ABG PCO2 37.7 mmHg (35.0-45.0)
[2017-03-09 20:48] LABS: ABG ALLEN TEST POSITIVE
[2017-03-10] VITALS: BP 109/66
[2017-03-10] MEDS ORDERED: LORazepam Inj 2mg/ml 1ml IV PRN
[2017-03-10] MEDS ORDERED: DuoNeb 0.5-3(2.5)mg/3ml neb HHN PRN (01:00)
[2017-03-10] MEDS ORDERED: Vancomycin 1gm/D5W 275ml IVPB SCH ×2 (01:00)
[2017-03-10] MEDS ORDERED: Morphine Sulfate 4mg/ml Inj IVP PRN (01:00)
[2017-03-10] MEDS: Vancomycin 1 GM in D5W 275 ML IVPB SCH ×2 (01:30→13:23)
[2017-03-10] MEDS ORDERED: Norco 5mg/325mg tab ORAL PRN (01:30)
[2017-03-10 04:00] VITALS: BP 95/56
[2017-03-10] MEDS: Piperacillin/Tazobactam 4.5 GM in D5W 110 ML IVPB SCH ×3 (05:55→21:10)
[2017-03-10 06:07] LABS: INR 4.1 (0.9-1.1); PROTHROMBIN TIME 43.2 SEC (9.30-11.50)
[2017-03-10 08:00] VITALS: BP 96/54
[2017-03-10] MEDS: levETIRAcetam 500mg/5ml Liquid GT SCH ×2 (09:00→21:10)
[2017-03-10] MEDS ORDERED: Pantoprazole 40mg pkt GT SCH (09:00)
--- NOTE | 2017-03-10 09:42 | Cardiology Report ---
APPROVED REPORT EXAM: Two-dimensional and M-mode echocardiogram with Doppler and color Doppler. INDICATION Congestive Heart Failure M-Mode DIMENSIONS IVSd1.6 (0.7-1.1cm)Left Atrium (MM)3.7 (1.6-4.0cm) LVDd5.4 (3.5-5.6cm)Aortic Root2.5 (2.0-3.7cm) PWd1.4 (0.7-1.1cm)Aortic Cusp Exc.1.8 (1.5-2.0cm) LVDs4.2 (2.5-4.0cm) PWs1.6 cm Normal left ventricular chamber size. Global left ventricular hypokinesis Left ventricular ejection fraction estimated to be 30-35 %. Mild left ventricular hypertrophy. No evidence of pericardial fat or effusion. Moderate right atrial and ventricular enlargement. Left ventricle D-shape pattern, suggestive of right ventricle volume overload. Left atrial cardiac chamber size is within normal limits. Mildly thickened mitral valve leaflets with normal excursion. Mild mitral annulus and aortic root calcification. Normal pulmonic valve structure. Normal tricuspid valve structure. Probable pacemaker wire present in the right side chambers. Subcostal views not obtained due to GI Tube. A color flow and spectral Doppler study was performed and revealed: No aortic regurgitation. Mild to moderate mitral regurgitation. Mitral diastolic velocities suggest reduced left ventricular relaxation (Grade I). Mild tricuspid regurgitation. Pulmonic regurgitation present.
[2017-03-10] MEDS ORDERED: Tubing IV Secondary IV ONE (09:54)
[2017-03-10] MEDS: Carvedilol 6.25mg Tab GT SCH ×2 (10:01→21:09)
[2017-03-10] MEDS: Aspirin Baby 81mg GT SCH (10:02)
[2017-03-10] MEDS: Amiodarone 200mg tab GT SCH (10:02)
[2017-03-10] MEDS: Zinc Sulfate 220mg cap ORAL SCH (10:02)
[2017-03-10] MEDS: Lisinopril 10mg tab GT SCH (10:03)
[2017-03-10] MEDS: Pantoprazole 40mg pkt GT SCH (10:10)
--- NOTE | 2017-03-10 10:28 | Consultation ---
DATE OF CONSULTATION: 03/09/2017 INFECTIOUS DISEASE CONSULTATION This consult is for coverage of Dr. Naqvi. PRIMARY ATTENDING PHYSICIAN: Shani Moses M.D. REASON FOR CONSULTATION: Pneumonia and sepsis. HISTORY OF PRESENT ILLNESS: The patient is a 57-year-old male admitted on 03/07/2017 from care home facility complaining of shortness of breath and decreasing O2 saturation. The patient had leukocytosis at the time of admission, also developed fever up to 100.9 yesterday evening. He is not the source of history. PAST MEDICAL HISTORY: History of cardiac arrest and anoxic encephalopathy. The patient has a history of severe cardiomyopathy status post defibrillator placement, status post G-tube, status post tracheostomy, paroxysmal atrial fibrillation, and hypertension. ALLERGIES: No known drug allergies. MEDICATIONS: Vancomycin, Tylenol, amiodarone, aspirin, zinc, Protonix, Zosyn, carvedilol, Coreg, Keppra, [place], DuoNeb inhaler, morphine. SOCIAL HISTORY: [facility] resident with poor mental and functional status. No other history is obtainable. PHYSICAL EXAMINATION: VITAL SIGNS: Current temperature 98.2, pulse 108, and blood pressure 97/56. GENERAL APPEARANCE: Unresponsive, . HEAD AND NECK: Tracheostomy. HEART: Tachycardiac, has defibrillator. LUNGS: Breathing fast. ABDOMEN: Soft. G-tube in place. EXTREMITIES: The patient has no edema. LABORATORY AND DIAGNOSTIC DATA: WBC 18.5, hemoglobin 9.4, hematocrit 31, platelets 127. Sodium 138, potassium 4.4, chloride 98, bicarbonate 26, BUN 25, creatinine 0.7, and glucose 129. AST 244, ALT 297, alkaline phosphatase 224. BNP is high at 3476. Chest x-ray showed a small infiltrate in the right mid lung. Blood culture x2 are negative. MRSA screen is so far negative. IMPRESSION: 1. Sepsis with fever and leukocytosis, likely the patient has pneumonia and elevation in transaminase level. 2. Encephalopathy. 3. Cardiomyopathy and congestive heart failure. 4. Hypertension. RECOMMENDATIONS: We will continue with current antibiotic management, vancomycin and Zosyn. We will send sputum culture. We asked for abdominal ultrasound to rule out liver pathology. At the end of my exam, I thank Dr. Moses, for involving me in the care of this patient. Ray Guzman M.D. DR: Jose Armando JOB#: [id number] CC:
--- NOTE | 2017-03-10 11:23 | Pulmonology Progress Note ---
Assessment/Plan Problems: (1) Respiratory distress (2) Chronic respiratory acidosis (3) Feeding by G-tube (4) CHF (congestive heart failure) (5) Pneumonia Assessment/Plan back on vent becasue of episodes of tachypnea echo result noted, EF of 35 optimize cardiac meds f/u cultures continue antibiotics tolerating feeding f/u GI f/u liver enzymes Subjective ROS Limited/Unobtainable: No Allergies: Coded Allergies: No Known Allergies (Unverified , 03/07/17) Objective Last 24 Hour Vital Signs Date Time Temp Pulse Resp B/P Pulse Ox O2 Delivery O2 Flow Rate FiO2 03/10/17 10:03 102/63 03/10/17 10:01 96 102/63 03/10/17 09:15 88 19 40 03/10/17 09:13 88 19 40 03/10/17 08:10 91 18 40 03/10/17 08:00 97.7 92 19 96/54 97 Mechanical Ventilator 03/10/17 05:10 86 18 40 03/10/17 04:00 45 03/10/17 04:00 97.8 94 19 95/56 99 Mechanical Ventilator 03/10/17 04:00 91 03/10/17 03:24 93 20 45 03/10/17 01:47 96 20 50 03/10/17 00:00 50 03/10/17 00:00 97.9 103 19 109/66 99 Mechanical Ventilator 03/10/17 00:00 94 03/09/17 23:59 95 16 50 03/09/17 23:29 98 16 Mechanical Ventilator 50 03/09/17 22:30 98 19 50 03/09/17 22:30 50 03/09/17 21:00 109 103/62 03/09/17 20:00 94 03/09/17 20:00 99.7 109 22 103/62 97 Trach Collar 03/09/17 19:24 99 T-piece 10.0 40 03/09/17 19:24 T-piece 10.0 40 03/09/17 16:00 103 03/09/17 15:30 98.4 96 28 95/57 96 T-piece 03/09/17 13:48 T-piece 10.0 40 03/09/17 13:47 99 T-piece 10.0 40 03/09/17 12:00 99 03/09/17 11:58 98.2 103 20 92/55 96 T-piece Intake and Output 03/09/17 03/10/17 19:00 07:00 Intake Total 130 ml 422.500 ml Output Total 600 ml Balance -470 ml 422.500 ml Intake Free Water 100 ml IV Total 302.500 ml Tube Feeding 30 ml 120 ml Output Urine Total 600 ml Objective General Appearance: WD/WN HEENT: normocephalic, atraumatic, trach in place Respiratory/Chest: chest wall non-tender, lungs rhonchi Cardiovascular: normal peripheral pulses, normal rate, regular rhythm Abdomen: normal bowel sounds, soft, non tender, no organomegaly, Gtube Extremities: no cyanosis, no clubbing Skin: no rash, no lesions Microbiology Date/Time Source Procedure Growth Status 03/07/17 17:04 Blood Blood Culture - Preliminary NO GROWTH AFTER 48 HOURS Resulted 03/07/17 17:04 Blood Blood Culture - Preliminary NO GROWTH AFTER 48 HOURS Resulted 03/07/17 19:53 Nasal Nares MRSA Culture - Final NO METHICILLIN RESISTANT STAPH AUREUS... Complete 03/07/17 19:53 Rectum VRE Culture - Final Enterococcus Faecalis - Vre Complete Laboratory Tests 03/09/17 16:19: Arterial Blood pH 7.457H, Arterial Blood Partial Pressure CO2 38.5, Arterial Blood Partial Pressure O2 69.0L, Arterial Blood HCO3 26.6H, Arterial Blood Oxygen Saturation 93.0, Arterial Blood Base Excess 2.6, Son Test Positive 03/09/17 17:10: Vancomycin Level Trough 24.3H 03/09/17 20:37: Arterial Blood pH 7.476H, Arterial Blood Partial Pressure CO2 37.7, Arterial Blood Partial Pressure O2 69.2L, Arterial Blood HCO3 27.2H, Arterial Blood Oxygen Saturation 93.0, Arterial Blood Base Excess 3.5, Son Test Positive 03/10/17 03:40: Prothrombin Time 43.2H, Prothromb Time International Ratio 4.1H Current Medications Medications (Trade) Dose Ordered Sig/Tameka Route PRN Reason Start Time Stop Time Status Last Admin Dose Admin Acetaminophen (Tylenol) 650 mg Q4H PRN NG Prn Headache/Temp > 101 03/10/17 00:15 04/09/17 00:14 Acetaminophen/ Hydrocodone Bitart ([place] 5/325) 1 tab Q4H PRN ORAL Moderate Pain (Pain Scale 4-6) 03/10/17 01:30 03/17/17 01:29 Albuterol/ Ipratropium (DuoNeb 0.5-3(2.5)mg/3ml) 3 ml EVERY 4 HOURS PRN HHN Shortness of Breath 03/10/17 01:00 03/15/17 00:59 Amiodarone HCl (Cordarone) 200 mg DAILY GT 03/10/17 09:00 04/09/17 08:59 03/10/17 10:02 Aspirin (ASA) 81 mg DAILY GT 03/10/17 09:00 04/09/17 08:59 03/10/17 10:02 Carvedilol (Coreg) 6.25 mg Q12HR GT 03/10/17 09:00 04/09/17 08:59 03/10/17 10:01 Dextrose (Dextrose 50%) STAT PRN IV Hypoglycemia 03/10/17 21:30 04/09/17 21:29 Levetiracetam (Keppra) 500 mg Q12HR GT 03/10/17 09:00 04/09/17 08:59 03/10/17 09:00 Lisinopril (Zestril) 10 mg DAILY GT 03/10/17 09:00 04/09/17 08:59 03/10/17 10:03 Lorazepam (Ativan 2mg/ml 1ml) 2 mg EVERY 2 HOURS PRN IV For Anxiety 03/10/17 00:00 03/17/17 00:00 Morphine Sulfate (Morphine Sulfate) 4 mg EVERY 4 HOURS PRN IVP Severe Pain (Pain Scale 7-10) 03/10/17 01:00 03/17/17 00:59 Ondansetron HCl (Zofran) 4 mg Q6H PRN IVP Nausea & Vomiting 03/10/17 03:30 04/09/17 03:29 Pantoprazole (Protonix) 40 mg DAILY GT 03/10/17 09:00 04/09/17 08:59 03/10/17 10:10 Piperacillin Sod/ Tazobactam Sod 4.5 gm/Dextrose 110 ml @ 27.5 mls/hr EVERY 8 HOURS IVPB 03/10/17 06:00 03/17/17 05:59 03/10/17 05:55 Polyethylene Glycol (Miralax) 17 gm DAILYPRN PRN ORAL Constipation 03/10/17 21:30 04/09/17 21:29 Vancomycin HCl (Vanco rx to dose) 1 ea DAILY PRN MISC per Rx protocol 03/10/17 09:00 04/09/17 08:59 Vancomycin HCl/ Dextrose (Vancomycin/D5W) 275 ml @ 183.708 mls/hr Q12HR@0100,1300 IVPB 03/10/17 01:00 03/15/17 00:59 03/10/17 01:30 Warfarin Sodium (Coumadin per pharmacy) 1 ea DAILY PRN MISC Per rx protocol 03/10/17 09:00 04/09/17 08:59 Zinc Sulfate (Zinc Sulfate) 220 mg DAILY ORAL 03/10/17 09:00 04/09/17 08:59 03/10/17 10:02 ODETTE SMILEY Mar 10, 2017 11:23
[2017-03-10 12:00] VITALS: BP 97/62
--- NOTE | 2017-03-10 12:08 | Infectious Diseases Prog Note ---
Assessment/Plan Assessment/Plan A: 57-year-old male w Pneumonia Chest x-ray: infiltrate in the right mid lung Sepsis Leukocytosis Fever Transaminitis Wound Cx :Colonizer History of cardiac arrest Anoxic encephalopathy Cardiomyopathy SP defibrillator placement Status post G-tube and tracheostomy Paroxysmal atrial fibrillation Hypertension P: continue vancomycin and Zosyn d# 2 Monitor Cx ( sputum culture and Blood ) Abdominal ultrasound hepatitis Panel cont vent support Subjective Allergies: Coded Allergies: No Known Allergies (Unverified , 03/07/17) Subjective afebrile Objective Vital Signs Last 24 Hour Vital Signs Date Time Temp Pulse Resp B/P Pulse Ox O2 Delivery O2 Flow Rate FiO2 03/10/17 11:24 82 19 40 03/10/17 10:03 102/63 03/10/17 10:01 96 102/63 03/10/17 09:15 88 19 40 03/10/17 09:13 88 19 40 03/10/17 08:10 91 18 40 03/10/17 08:00 97.7 92 19 96/54 97 Mechanical Ventilator 03/10/17 05:10 86 18 40 03/10/17 04:00 45 03/10/17 04:00 97.8 94 19 95/56 99 Mechanical Ventilator 03/10/17 04:00 91 03/10/17 03:24 93 20 45 03/10/17 01:47 96 20 50 03/10/17 00:00 50 03/10/17 00:00 97.9 103 19 109/66 99 Mechanical Ventilator 03/10/17 00:00 94 03/09/17 23:59 95 16 50 03/09/17 23:29 98 16 Mechanical Ventilator 50 03/09/17 22:30 98 19 50 03/09/17 22:30 50 03/09/17 21:00 109 103/62 03/09/17 20:00 94 03/09/17 20:00 99.7 109 22 103/62 97 Trach Collar 03/09/17 19:24 99 T-piece 10.0 40 03/09/17 19:24 T-piece 10.0 40 03/09/17 16:00 103 03/09/17 15:30 98.4 96 28 95/57 96 T-piece 03/09/17 13:48 T-piece 10.0 40 03/09/17 13:47 99 T-piece 10.0 40 Height (Feet): 6 Height (Inches): 0.00 Weight (Pounds): 150 HEENT: atraumatic Respiratory/Chest: decreased breath sounds Abdomen: normal bowel sounds Skin: no rash Microbiology Date/Time Source Procedure Growth Status 03/07/17 17:04 Blood Blood Culture - Preliminary NO GROWTH AFTER 48 HOURS Resulted 03/07/17 17:04 Blood Blood Culture - Preliminary NO GROWTH AFTER 48 HOURS Resulted 03/07/17 19:53 Nasal Nares MRSA Culture - Final NO METHICILLIN RESISTANT STAPH AUREUS... Complete 03/09/17 13:00 Sacral Wound Gram Stain - Final Resulted 03/09/17 13:00 Sacral Wound Wound Culture Pending Resulted 03/07/17 19:53 Rectum VRE Culture - Final Enterococcus Faecalis - Vre Complete Laboratory Tests Test 03/09/17 16:19 03/09/17 17:10 03/09/17 20:37 03/10/17 03:40 Arterial Blood pH 7.457 (7.350-7.450) 7.476 (7.350-7.450) Arterial Blood Partial Pressure CO2 38.5 mmHg (35.0-45.0) 37.7 mmHg (35.0-45.0) Arterial Blood Partial Pressure O2 69.0 mmHg (75.0-100.0) L 69.2 mmHg (75.0-100.0) L Arterial Blood HCO3 26.6 mmol/L (22.0-26.0) H 27.2 mmol/L (22.0-26.0) H Arterial Blood Oxygen Saturation 93.0 % (92.0-98.0) 93.0 % (92.0-98.0) Arterial Blood Base Excess 2.6 3.5 Son Test Positive Positive Vancomycin Level Trough 24.3 ug/mL (5.0-12.0) H Prothrombin Time 43.2 SEC (9.30-11.50) H Prothromb Time International Ratio 4.1 (0.9-1.1) H Current Medications Medications (Trade) Dose Ordered Sig/Tameka Route PRN Reason Start Time Stop Time Status Last Admin Dose Admin Acetaminophen (Tylenol) 650 mg Q4H PRN NG Prn Headache/Temp > 101 03/10/17 00:15 04/09/17 00:14 Acetaminophen/ Hydrocodone Bitart ([place] 5/325) 1 tab Q4H PRN ORAL Moderate Pain (Pain Scale 4-6) 03/10/17 01:30 03/17/17 01:29 Albuterol/ Ipratropium (DuoNeb 0.5-3(2.5)mg/3ml) 3 ml EVERY 4 HOURS PRN HHN Shortness of Breath 03/10/17 01:00 03/15/17 00:59 Amiodarone HCl (Cordarone) 200 mg DAILY GT 03/10/17 09:00 04/09/17 08:59 03/10/17 10:02 Aspirin (ASA) 81 mg DAILY GT 03/10/17 09:00 04/09/17 08:59 03/10/17 10:02 Carvedilol (Coreg) 6.25 mg Q12HR GT 03/10/17 09:00 04/09/17 08:59 03/10/17 10:01 Dextrose (Dextrose 50%) STAT PRN IV Hypoglycemia 03/10/17 21:30 04/09/17 21:29 Levetiracetam (Keppra) 500 mg Q12HR GT 03/10/17 09:00 04/09/17 08:59 03/10/17 09:00 Lisinopril (Zestril) 10 mg DAILY GT 03/10/17 09:00 04/09/17 08:59 03/10/17 10:03 Lorazepam (Ativan 2mg/ml 1ml) 2 mg EVERY 2 HOURS PRN IV For Anxiety 03/10/17 00:00 03/17/17 00:00 Morphine Sulfate (Morphine Sulfate) 4 mg EVERY 4 HOURS PRN IVP Severe Pain (Pain Scale 7-10) 03/10/17 01:00 03/17/17 00:59 Ondansetron HCl (Zofran) 4 mg Q6H PRN IVP Nausea & Vomiting 03/10/17 03:30 04/09/17 03:29 Pantoprazole (Protonix) 40 mg DAILY GT 03/10/17 09:00 04/09/17 08:59 03/10/17 10:10 Piperacillin Sod/ Tazobactam Sod 4.5 gm/Dextrose 110 ml @ 27.5 mls/hr EVERY 8 HOURS IVPB 03/10/17 06:00 03/17/17 05:59 03/10/17 05:55 Polyethylene Glycol (Miralax) 17 gm DAILYPRN PRN ORAL Constipation 03/10/17 21:30 04/09/17 21:29 Vancomycin HCl (Vanco rx to dose) 1 ea DAILY PRN MISC per Rx protocol 03/10/17 09:00 04/09/17 08:59 Vancomycin HCl/ Dextrose (Vancomycin/D5W) 275 ml @ 183.708 mls/hr Q12HR@0100,1300 IVPB 03/10/17 01:00 03/15/17 00:59 03/10/17 01:30 Warfarin Sodium (Coumadin per pharmacy) 1 ea DAILY PRN MISC Per rx protocol 03/10/17 09:00 04/09/17 08:59 Zinc Sulfate (Zinc Sulfate) 220 mg DAILY ORAL 03/10/17 09:00 04/09/17 08:59 03/10/17 10:02 MARCUS PA M.D. Mar 10, 2017 12:08
--- NOTE | 2017-03-10 13:01 | GI Initial Consult Note ---
Lani Last NBetoPBeto 03/10/17 1301: History of Present Illness General Date patient seen: Mar 10, 2017 Time patient seen: 13:00 Reason for Hospitalization: General Complaint Referring physician: ODETTE FINK Reason for Consultation: Transaminitis Present Illness HPI 57-year-old male presents ED for evaluation. [facility] Patient has a trach and is on humidified air. Per EMS patient was breathing [facility] today [facility]. O2 saturations dropped. Patient was brought in for evaluation. Patient looks more comfortable on initial exam. O2 saturations okay. Crackles on exam. Patient unable to provide any additional history at this time. No reported fevers or chills. No other aggravating relieving factors. No other associated symptoms GI CONSULT: HPI as noted above. GI consulted for transaminitis. Limited, pt seen on floor awake and alert NAD with no s/sx of pain or distress. Pt non verbal trach and peg, able to follow movement with eyes. He presents today with transaminitis, anemia and leukocytosis. Unknown history of colonoscopy. Home Meds Reported Medications Lactulose (LACTULOSE*) 20 Gm/30 Ml Solution, 30 ML ORAL, ML 0 Refills 03/07/17 Zinc Sulfate (ZINC SULFATE*) 220 Mg Capsule, 220 MG ORAL DAILY, CAP 0 Refills 03/07/17 Ascorbic Acid* (VITAMIN C*) 500 Mg Tablet, 500 MG ORAL DAILY, #30 TAB 0 Refills 03/07/17 Multivitamin Liquid* (MULTI-DELYN*) 237 Ml Liquid, 5 ML GT DAILY, ML 03/07/17 Hydrocodone Bit/Acetaminophen 5-325* (NORCO 5-325*) 1 Each Tablet, 1 TAB ORAL Q4H Y for For Pain, TAB 0 Refills 03/07/17 Spironolactone* (ALDACTONE*) 25 Mg Tablet, 25 MG ORAL DAILY, TAB 03/07/17 Docusate Sodium* (DOCUSATE SODIUM*) 100 Mg Capsule, 100 MG ORAL TWICE A DAY, CAP 03/07/17 Omeprazole (OMEPRAZOLE) 40 Mg Capsule.dr, 40 MG ORAL DAILY, CAP 03/07/17 Lisinopril* (LISINOPRIL*) 10 Mg Tablet, 10 MG ORAL DAILY, TAB 03/07/17 Levetiracetam* (LEVETIRACETAM*) 100 Mg/1 Ml Solution, 500 MG GT BID 03/07/17 Warfarin Sod (COUMADIN*) 7.5 Mg Tablet, 7.5 MG GT DAILY, TAB 03/07/17 Furosemide* (LASIX*) 40 Mg Tablet, 60 MG GT DAILY, TAB 03/07/17 Carvedilol* (CARVEDILOL*) 6.25 Mg Tablet, 6.25 MG GT BID, TAB 03/07/17 Aspirin* (ASPIR 81*) 81 Mg Tablet.dr, 81 MG GT DAILY, TAB 03/07/17 Amiodarone Hcl (AMIODARONE HCL) 100 Mg Tablet, 200 MG GT DAILY, TAB 03/07/17 Discontinued Reported Medications Acetaminophen* (ACETAMINOPHEN*) 160 Mg/5 Ml Liquid, 650 MG GT Q6H Y for Mild Pain/Temp > 100.5, ML 03/07/17 Ondansetron* (ZOFRAN*) 4 Mg/2 Ml Vial, 4 MG IM Q6H Y for Nausea & Vomiting, VIAL 03/07/17 Levetiracetam (KEPPRA XR) 500 Mg Tab.er.24h, 1000 MG GT BID, #30 TAB 0 Refills 03/07/17 Vancomycin Hcl/D5w (VANCOMYCIN-D5W 1 G/250 ML) 1 Gm/250 Ml Plast..bag, 1 GM IVPB EVERY 12 HOURS, BAG 03/07/17 Med list reviewed/reconciled: Yes Allergies: Coded Allergies: No Known Allergies (Unverified , 03/07/17) Patient History Limited by: medical condition History Provided By: Medical Record PMH Narrative Past Medical History: HTN, AFib, CVA/TIA Past Surgical History: other - trach Pertinent Family History: none Social History: Denies: alcohol use, drug use, smoking Immunizations: UTD Reviewed Nursing Documentation: PMH: Agreed, PSxH: Agreed Nursing Documentation-PMH Hx Cardiac Problems: Yes - a fib Hx Hypertension: Yes Hx Pacemaker: No Hx Diabetes: No Hx Cerebrovascular Accident: Yes Hx Seizures: No Review of Systems All Other Systems: limited Physical Exam Vital Signs Date Time Temp Pulse Resp B/P Pulse Ox O2 Delivery O2 Flow Rate FiO2 03/07/17 16:22 98.4 105 22 112/74 97 Room Air 03/07/17 16:49 5.0 50 Sp02 EP Interpretation: reviewed Labs Laboratory Tests Test 03/09/17 16:19 03/09/17 17:10 03/09/17 20:37 03/10/17 03:40 Arterial Blood pH 7.457 (7.350-7.450) 7.476 (7.350-7.450) Arterial Blood Partial Pressure CO2 38.5 mmHg (35.0-45.0) 37.7 mmHg (35.0-45.0) Arterial Blood Partial Pressure O2 69.0 mmHg (75.0-100.0) L 69.2 mmHg (75.0-100.0) L Arterial Blood HCO3 26.6 mmol/L (22.0-26.0) H 27.2 mmol/L (22.0-26.0) H Arterial Blood Oxygen Saturation 93.0 % (92.0-98.0) 93.0 % (92.0-98.0) Arterial Blood Base Excess 2.6 3.5 Son Test Positive Positive Vancomycin Level Trough 24.3 ug/mL (5.0-12.0) H Prothrombin Time 43.2 SEC (9.30-11.50) H Prothromb Time International Ratio 4.1 (0.9-1.1) H General Appearance: no apparent distress Head: normocephalic EENT: PERRL/EOMI, normal ENT inspection Neck: tracheotomy Respiratory: other - mech vent Cardiovascular: normal rate Gastrointestinal: gt Rectal: deferred Neurologic: alert Skin: normal color, no rash Lymphatic: normal inspection, no adenopathy Current Medications Current Medications Medications (Trade) Dose Ordered Sig/Tameka Route PRN Reason Start Time Stop Time Status Last Admin Dose Admin Acetaminophen (Tylenol) 650 mg Q4H PRN NG Prn Headache/Temp > 101 03/10/17 00:15 04/09/17 00:14 Acetaminophen/ Hydrocodone Bitart ([place] 5/325) 1 tab Q4H PRN ORAL Moderate Pain (Pain Scale 4-6) 03/10/17 01:30 03/17/17 01:29 Albuterol/ Ipratropium (DuoNeb 0.5-3(2.5)mg/3ml) 3 ml EVERY 4 HOURS PRN HHN Shortness of Breath 03/10/17 01:00 03/15/17 00:59 Amiodarone HCl (Cordarone) 200 mg DAILY GT 03/10/17 09:00 04/09/17 08:59 03/10/17 10:02 Aspirin (ASA) 81 mg DAILY GT 03/10/17 09:00 04/09/17 08:59 03/10/17 10:02 Carvedilol (Coreg) 6.25 mg Q12HR GT 03/10/17 09:00 04/09/17 08:59 03/10/17 10:01 Dextrose (Dextrose 50%) STAT PRN IV Hypoglycemia 03/10/17 21:30 04/09/17 21:29 Levetiracetam (Keppra) 500 mg Q12HR GT 03/10/17 09:00 04/09/17 08:59 03/10/17 09:00 Lisinopril (Zestril) 10 mg DAILY GT 03/10/17 09:00 04/09/17 08:59 03/10/17 10:03 Lorazepam (Ativan 2mg/ml 1ml) 2 mg EVERY 2 HOURS PRN IV For Anxiety 03/10/17 00:00 03/17/17 00:00 Morphine Sulfate (Morphine Sulfate) 4 mg EVERY 4 HOURS PRN IVP Severe Pain (Pain Scale 7-10) 03/10/17 01:00 03/17/17 00:59 Ondansetron HCl (Zofran) 4 mg Q6H PRN IVP Nausea & Vomiting 03/10/17 03:30 04/09/17 03:29 Pantoprazole (Protonix) 40 mg DAILY GT 03/10/17 09:00 04/09/17 08:59 03/10/17 10:10 Piperacillin Sod/ Tazobactam Sod 4.5 gm/Dextrose 110 ml @ 27.5 mls/hr EVERY 8 HOURS IVPB 03/10/17 06:00 03/17/17 05:59 03/10/17 05:55 Polyethylene Glycol (Miralax) 17 gm DAILYPRN PRN ORAL Constipation 03/10/17 21:30 04/09/17 21:29 Vancomycin HCl (Vanco rx to dose) 1 ea DAILY PRN MISC per Rx protocol 03/10/17 09:00 04/09/17 08:59 Vancomycin HCl/ Dextrose (Vancomycin/D5W) 275 ml @ 183.708 mls/hr Q12HR@0100,1300 IVPB 03/10/17 01:00 03/15/17 00:59 03/10/17 01:30 Warfarin Sodium (Coumadin per pharmacy) 1 ea DAILY PRN MISC Per rx protocol 03/10/17 09:00 04/09/17 08:59 Zinc Sulfate (Zinc Sulfate) 220 mg DAILY ORAL 03/10/17 09:00 04/09/17 08:59 03/10/17 10:02 GI: Plan Problems: (1) Transaminitis (2) Leukocytosis (3) Anemia (4) Feeding by G-tube Plan anemia work up OB stool uncollected monitor H&H, transfuse prn GTFs per dietary fu abdominal U/S fu hepatitis panel fu AFP ppi fu labs Discussed with Dr. Alex. Thank you for referring this patient, we will follow. NIRAJ ALEX 03/11/17 1555: History of Present Illness General Reason for Hospitalization: General Complaint Present Illness Home Meds Reported Medications Lactulose (LACTULOSE*) 20 Gm/30 Ml Solution, 30 ML ORAL, ML 0 Refills 03/07/17 Zinc Sulfate (ZINC SULFATE*) 220 Mg Capsule, 220 MG ORAL DAILY, CAP 0 Refills 03/07/17 Ascorbic Acid* (VITAMIN C*) 500 Mg Tablet, 500 MG ORAL DAILY, #30 TAB 0 Refills 03/07/17 Multivitamin Liquid* (MULTI-DELYN*) 237 Ml Liquid, 5 ML GT DAILY, ML 03/07/17 Hydrocodone Bit/Acetaminophen 5-325* (NORCO 5-325*) 1 Each Tablet, 1 TAB ORAL Q4H Y for For Pain, TAB 0 Refills 03/07/17 Spironolactone* (ALDACTONE*) 25 Mg Tablet, 25 MG ORAL DAILY, TAB 03/07/17 Docusate Sodium* (DOCUSATE SODIUM*) 100 Mg Capsule, 100 MG ORAL TWICE A DAY, CAP 03/07/17 Omeprazole (OMEPRAZOLE) 40 Mg Capsule., 40 MG ORAL DAILY, CAP 03/07/17 Lisinopril* (LISINOPRIL*) 10 Mg Tablet, 10 MG ORAL DAILY, TAB 03/07/17 Levetiracetam* (LEVETIRACETAM*) 100 Mg/1 Ml Solution, 500 MG GT BID 03/07/17 Warfarin Sod (COUMADIN*) 7.5 Mg Tablet, 7.5 MG GT DAILY, TAB 03/07/17 Furosemide* (LASIX*) 40 Mg Tablet, 60 MG GT DAILY, TAB 03/07/17 Carvedilol* (CARVEDILOL*) 6.25 Mg Tablet, 6.25 MG GT BID, TAB 03/07/17 Aspirin* (ASPIR 81*) 81 Mg Tablet.dr, 81 MG GT DAILY, TAB 03/07/17 Amiodarone Hcl (AMIODARONE HCL) 100 Mg Tablet, 200 MG GT DAILY, TAB 03/07/17 Discontinued Reported Medications Acetaminophen* (ACETAMINOPHEN*) 160 Mg/5 Ml Liquid, 650 MG GT Q6H Y for Mild Pain/Temp > 100.5, ML 03/07/17 Ondansetron* (ZOFRAN*) 4 Mg/2 Ml Vial, 4 MG IM Q6H Y for Nausea & Vomiting, VIAL 03/07/17 Levetiracetam (KEPPRA XR) 500 Mg Tab.er.24h, 1000 MG GT BID, #30 TAB 0 Refills 03/07/17 Vancomycin Hcl/D5w (VANCOMYCIN-D5W 1 G/250 ML) 1 Gm/250 Ml Plast..bag, 1 GM IVPB EVERY 12 HOURS, BAG 03/07/17 Allergies: Coded Allergies: No Known Allergies (Unverified , 03/07/17) GI: Plan Plan The patient was seen and examined at bedside and all new and available data was reviewed in the patients chart. I agree with the above findings, impression and plan. (Patient seen earlier today. Signature stamp does not reflect patient encounter time.). -Niraj Last,[facility] Fidencio N.PBeto Mar 10, 2017 13:01 NIRAJ ALEX Mar 11, 2017 15:55
--- NOTE | 2017-03-10 14:30 | Diagnostic Imaging Report ---
APPROVED REPORT CPT Code: 56315 Present Symptoms Lower Extremity Pain: Bilateral BILATERAL: Imaging reveals a patent deep venous system bilaterally. There is no evidence of thrombus within the femoral, popliteal or tibial segments. The greater saphenous veins are also within normal limits. Doppler indicates normal spontaneous flow within these segments.
--- NOTE | 2017-03-10 14:39 | Wound Care Consultation ---
Wound Assessment Wound Assessment : Wound Present on Admission: Yes New Wound: No Status Change of Wound: No Wound Location Body Site Modif: mid Wound Location Body Site: sacral Wound Type: pressure ulcer Francis Test: Does not Francis Pressure Ulcer Stage: IV/unstageable Wound Thickness: Full Thickness Wound Length: 9.0 Wound Width: 11.5 Wound Depth: utd Percent of Wound Bed Yellow/Wh: 100 Wound Drainage Description: Serosanguineous Wound Drainage Amount: Scant Wound Drainage Odor: None/Absent Tissue Surrounding Wound: Macerated Wound General Appearance: Draining, Necrotic Wound Comment #1 Sacral IV/unstageable Pressure ulcer Recommendation -Sacral presser ulcer Cleanse with saline, pat dry, apply Therahoney gel, apply 4x4, cover with Bordered gauze daily and PRN soiled/dislodged -Keep clean and dry -Turn and reposition -Optimize nutrition -Heel protector -Offload both heels -Low air loss mattress -Assess and f/u accordingly for any changes KENN GRACE RN Mar 10, 2017 14:39
--- NOTE | 2017-03-10 15:53 | Cardiac Electrophysiology PN ---
Assessment/Plan Assessment/Plan 1. Congestive heart failure with EF 30%. His BNP is more than 3000. Continue Coreg 6.25 mg twice a day, Zestril 10 and add low dose Lasix and Aldactone. 2. Atrial fibrillation. Currently in sinus rhythm on Coreg, amiodarone, and Coumadin per pharmacy. 3. Status post pulseless electrical activity during transesophageal echocardiogram with no clear etiology. The patient was ruled out for myocardial infarction as well as pulmonary embolus. 4. VDRF Status post tracheostomy 5. Dysphagia, status post percutaneous endoscopic gastrostomy placement. 6. Anoxic encephalopathy. 7. Pneumonia, on broad-spectrum intravenous antibiotics vancomycin and Zosyn. DW RN Subjective Subjective On vent via tracheostomy. Opens eyes. No significant arrhythmias on tele.RN at bedside. Objective Last 24 Hour Vital Signs Date Time Temp Pulse Resp B/P Pulse Ox O2 Delivery O2 Flow Rate FiO2 03/10/17 15:25 91 22 40 03/10/17 12:44 88 16 40 03/10/17 12:00 98.1 84 21 97/62 99 Mechanical Ventilator 40 03/10/17 12:00 85 03/10/17 11:24 82 19 40 03/10/17 10:03 102/63 03/10/17 10:01 96 102/63 03/10/17 09:15 88 19 40 03/10/17 09:13 88 19 40 03/10/17 08:10 91 18 40 03/10/17 08:00 88 03/10/17 08:00 97.7 92 19 96/54 97 Mechanical Ventilator 03/10/17 05:10 86 18 40 03/10/17 04:00 45 03/10/17 04:00 97.8 94 19 95/56 99 Mechanical Ventilator 03/10/17 04:00 91 03/10/17 03:24 93 20 45 03/10/17 01:47 96 20 50 03/10/17 00:00 50 03/10/17 00:00 97.9 103 19 109/66 99 Mechanical Ventilator 03/10/17 00:00 94 03/09/17 23:59 95 16 50 03/09/17 23:29 98 16 Mechanical Ventilator 50 03/09/17 22:30 98 19 50 03/09/17 22:30 50 03/09/17 21:00 109 103/62 03/09/17 20:00 94 4/23/17 20:00 99.7 109 22 103/62 97 Trach Collar 03/09/17 19:24 99 T-piece 10.0 40 03/09/17 19:24 T-piece 10.0 40 03/09/17 16:00 103 Intake and Output 03/09/17 03/10/17 19:00 07:00 Intake Total 130 ml 422.500 ml Output Total 600 ml Balance -470 ml 422.500 ml Intake Free Water 100 ml IV Total 302.500 ml Tube Feeding 30 ml 120 ml Output Urine Total 600 ml Laboratory Tests Test 03/09/17 16:19 03/09/17 17:10 03/09/17 20:37 03/10/17 03:40 Arterial Blood pH 7.457 (7.350-7.450) 7.476 (7.350-7.450) Arterial Blood Partial Pressure CO2 38.5 mmHg (35.0-45.0) 37.7 mmHg (35.0-45.0) Arterial Blood Partial Pressure O2 69.0 mmHg (75.0-100.0) L 69.2 mmHg (75.0-100.0) L Arterial Blood HCO3 26.6 mmol/L (22.0-26.0) H 27.2 mmol/L (22.0-26.0) H Arterial Blood Oxygen Saturation 93.0 % (92.0-98.0) 93.0 % (92.0-98.0) Arterial Blood Base Excess 2.6 3.5 Son Test Positive Positive Vancomycin Level Trough 24.3 ug/mL (5.0-12.0) H Prothrombin Time 43.2 SEC (9.30-11.50) H Prothromb Time International Ratio 4.1 (0.9-1.1) H Microbiology Date/Time Source Procedure Growth Status 03/07/17 17:04 Blood Blood Culture - Preliminary NO GROWTH AFTER 48 HOURS Resulted 03/07/17 17:04 Blood Blood Culture - Preliminary NO GROWTH AFTER 48 HOURS Resulted 03/07/17 19:53 Nasal Nares MRSA Culture - Final NO METHICILLIN RESISTANT STAPH AUREUS... Complete 03/09/17 13:00 Sacral Wound Gram Stain - Final Resulted 03/09/17 13:00 Sacral Wound Wound Culture Pending Resulted 03/07/17 19:53 Rectum VRE Culture - Final Enterococcus Faecalis - Vre Complete Objective HEAD AND NECK: Shows no JVD. Status post tracheostomy CARDIOVASCULAR: Shows regular S1 and S2. No gallop. The defibrillator is in subclavian. ABDOMEN: Soft. There is a G-tube. EXTREMITIES: No pitting edema. DAMIR POOL Mar 10, 2017 15:53
[2017-03-10 16:00] VITALS: BP 100/64
[2017-03-10 20:00] VITALS: BP 100/62
[2017-03-10] MEDS ORDERED: Miralax 17gm pkt ORAL PRN (21:30)
[2017-03-11] VITALS: BP 97/67
[2017-03-11] MEDS: Vancomycin 1 GM in D5W 275 ML IVPB SCH ×2 (01:03→14:09)
[2017-03-11 04:00] VITALS: BP 101/59
[2017-03-11 05:05] LABS: BASOPHILS % (AUTO) 0.6 % (0.0-2.0); LYMPHOCYTES % (AUTO) 10.8 % (20.0-45.0); MEAN CORPUSCULAR HEMOGLOBIN 23.7 PG (27.0-31.0); MEAN CORPUSCULAR HGB CONC 29.8 G/DL (32.0-36.0); MEAN CORPUSCULAR VOLUME 80 FL (80-99); MEAN PLATELET VOLUME 5.5 FL (6.5-10.1); MONOCYTES % (AUTO) 8.4 % (1.0-10.0); NEUTROPHILS % (AUTO) 78.2 % (45.0-75.0); PLATELET COUNT 725 K/UL (150-450); RED CELL DISTRIBUTION WIDTH 19.7 % (11.6-14.8); WHITE BLOOD COUNT 13.2 K/UL (4.8-10.8)
[2017-03-11] MEDS: Piperacillin/Tazobactam 4.5 GM in D5W 110 ML IVPB SCH ×3 (05:09→21:39)
[2017-03-11 05:22] LABS: INR 4.8 (0.9-1.1); PROTHROMBIN TIME 51.7 SEC (9.30-11.50)
[2017-03-11 06:54] LABS: ALANINE AMINOTRANSFERASE 209 U/L (3-41); ALBUMIN/GLOBULIN RATIO 0.4 (1.0-2.7); ANION GAP 14 (5-15); ASPARTATE AMINO TRANSFERASE 153 U/L (5-40); CALCIUM 9.4 mg/dL (8.6-10.2); CARBON DIOXIDE 27 mEQ/L (20-30); CHLORIDE 98 mEQ/L (98-107); CREATININE 0.7 mg/dL (0.7-1.2); GLOMERULAR FILTRATION RATE > 60 mL/min (>60); HEMOLYSIS 0; POTASSIUM 3.9 mEQ/L (3.4-4.9); SODIUM 139 mEQ/L (135-145); TOTAL PROTEIN 7.6 g/dL (6.6-8.7)
[2017-03-11 07:05] LABS: FERRITIN 447 ng/mL (10-230)
[2017-03-11 08:00] VITALS: BP 100/62
[2017-03-11] MEDS: Aspirin Baby 81mg GT SCH (09:49)
[2017-03-11] MEDS: Zinc Sulfate 220mg cap ORAL SCH (09:50)
[2017-03-11] MEDS: Amiodarone 200mg tab GT SCH (09:50)
[2017-03-11] MEDS: Spironolactone 25mg tab GT SCH (09:50)
[2017-03-11] MEDS: Furosemide 40mg tab PEG SCH (09:50)
[2017-03-11] MEDS: Lisinopril 10mg tab GT SCH (09:51)
[2017-03-11] MEDS: Carvedilol 6.25mg Tab GT SCH ×2 (09:51→21:02)
[2017-03-11] MEDS: levETIRAcetam 500mg/5ml Liquid GT SCH ×2 (09:51→21:02)
[2017-03-11] MEDS: Pantoprazole 40mg pkt GT SCH (09:55)
--- NOTE | 2017-03-11 10:08 | Infectious Diseases Prog Note ---
Assessment/Plan Assessment/Plan A: 57-year-old male w Pneumonia Chest x-ray: infiltrate in the right mid lung Sepsis, SP Leukocytosis improving Fever, SP Transaminitis improving Wound Cx :Colonizer History of cardiac arrest Anoxic encephalopathy Cardiomyopathy SP defibrillator placement Status post G-tube and tracheostomy Paroxysmal atrial fibrillation Hypertension P: continue vancomycin and Zosyn d# 3 Monitor Cx ( sputum culture and Blood ) Abdominal ultrasound hepatitis Panel cont vent support Subjective Constitutional: Denies: anorexia, chills, drenching sweats, fatigue, fever, no symptoms, other Allergies: Coded Allergies: No Known Allergies (Unverified , 03/07/17) Subjective afebrile Objective Vital Signs Last 24 Hour Vital Signs Date Time Temp Pulse Resp B/P Pulse Ox O2 Delivery O2 Flow Rate FiO2 03/11/17 09:51 101/59 03/11/17 09:51 96 101/59 03/11/17 09:29 96 20 40 03/11/17 08:00 97.9 93 21 100/62 98 Mechanical Ventilator 40 03/11/17 07:03 91 21 40 03/11/17 05:01 87 20 40 03/11/17 04:00 40 03/11/17 04:00 97.7 86 21 101/59 98 Mechanical Ventilator 40 03/11/17 04:00 87 03/11/17 03:12 47 23 40 03/11/17 00:59 101 19 40 03/11/17 00:00 99.0 95 20 97/67 98 Mechanical Ventilator 40 03/11/17 00:00 40 03/11/17 00:00 91 03/10/17 23:11 91 19 40 03/10/17 21:09 96 100/62 03/10/17 20:43 96 20 40 03/10/17 20:00 91 03/10/17 20:00 40 03/10/17 20:00 99.0 96 18 100/62 98 Mechanical Ventilator 40 03/10/17 19:43 93 21 40 03/10/17 17:24 92 19 40 03/10/17 16:00 87 03/10/17 16:00 98.2 88 22 100/64 98 Mechanical Ventilator 40 03/10/17 15:25 91 22 40 03/10/17 12:44 88 16 40 03/10/17 12:00 98.1 84 21 97/62 99 Mechanical Ventilator 40 03/10/17 12:00 85 03/10/17 11:24 82 19 40 Height (Feet): 6 Height (Inches): 0.00 Weight (Pounds): 150 HEENT: anicteric Respiratory/Chest: no respiratory distress Cardiovascular: no gallop/murmur Abdomen: no organomegaly Microbiology Date/Time Source Procedure Growth Status 03/09/17 13:00 Sacral Wound Gram Stain - Final Resulted 03/09/17 13:00 Sacral Wound Wound Culture Pending Resulted Laboratory Tests Test 03/11/17 03:45 White Blood Count 13.2 K/UL (4.8-10.8) H Red Blood Count 3.60 M/UL (4.70-6.10) L Hemoglobin 8.5 G/DL (14.2-18.0) L Hematocrit 28.6 % (42.0-52.0) L Mean Corpuscular Volume 80 FL (80-99) Mean Corpuscular Hemoglobin 23.7 PG (27.0-31.0) L Mean Corpuscular Hemoglobin Concent 29.8 G/DL (32.0-36.0) L Red Cell Distribution Width 19.7 % (11.6-14.8) H Platelet Count 725 K/UL (150-450) H Mean Platelet Volume 5.5 FL (6.5-10.1) L Neutrophils (%) (Auto) 78.2 % (45.0-75.0) H Lymphocytes (%) (Auto) 10.8 % (20.0-45.0) L Monocytes (%) (Auto) 8.4 % (1.0-10.0) Eosinophils (%) (Auto) 2.0 % (0.0-3.0) Basophils (%) (Auto) 0.6 % (0.0-2.0) Reticulocyte Count 2.6 % (0.0-2.0) H Prothrombin Time 51.7 SEC (9.30-11.50) H Prothromb Time International Ratio 4.8 (0.9-1.1) H Activated Partial Thromboplast Time 48 SEC (23-33) H Sodium Level 139 mEQ/L (135-145) Potassium Level 3.9 mEQ/L (3.4-4.9) Chloride Level 98 mEQ/L (98-107) Carbon Dioxide Level 27 mEQ/L (20-30) Anion Gap 14 (5-15) Blood Urea Nitrogen 23 mg/dL (7-23) Creatinine 0.7 mg/dL (0.7-1.2) Estimat Glomerular Filtration Rate > 60 mL/min (>60) Glucose Level 126 mg/dL (74-106) H Calcium Level 9.4 mg/dL (8.6-10.2) Iron Level 14 ug/dL (59-158) L Total Iron Binding Capacity 150 ug/dL (250-400) L Percent Iron Saturation 9 % (15-50) L Unsaturated Iron Binding 136 ug/dL (112-346) Ferritin 447 ng/mL (10-230) H Total Bilirubin 0.3 mg/dL (0.0-1.2) Aspartate Amino Transf (AST/SGOT) 153 U/L (5-40) H Alanine Aminotransferase (ALT/SGPT) 209 U/L (3-41) H Alkaline Phosphatase 146 U/L (40-129) H Total Protein 7.6 g/dL (6.6-8.7) Albumin 2.4 g/dL (3.5-5.2) L Globulin 5.2 g/dL Albumin/Globulin Ratio 0.4 (1.0-2.7) L Alpha Fetoprotein Pending Carcinoembryonic Antigen 7.4 ng/mL H Vitamin B12 Level 878 pg/mL (211-946) Folate Pending Thyroid Stimulating Hormone (TSH) 2.250 uIU/mL (0.300-4.500) Free Thyroxine 1.42 ng/dL (0.86-1.85) Hepatitis A IgM Antibody Pending Hepatitis B Surface Antigen Pending Hepatitis B Core IgM Antibody Pending Hepatitis C Antibody Pending Current Medications Medications (Trade) Dose Ordered Sig/Tameka Route PRN Reason Start Time Stop Time Status Last Admin Dose Admin Acetaminophen (Tylenol) 650 mg Q4H PRN NG Prn Headache/Temp > 101 03/10/17 00:15 04/09/17 00:14 Acetaminophen/ Hydrocodone Bitart ([place] 5/325) 1 tab Q4H PRN ORAL Moderate Pain (Pain Scale 4-6) 03/10/17 01:30 03/17/17 01:29 Albuterol/ Ipratropium (DuoNeb 0.5-3(2.5)mg/3ml) 3 ml EVERY 4 HOURS PRN HHN Shortness of Breath 03/10/17 01:00 03/15/17 00:59 Amiodarone HCl (Cordarone) 200 mg DAILY GT 03/10/17 09:00 04/09/17 08:59 03/11/17 09:50 Aspirin (ASA) 81 mg DAILY GT 03/10/17 09:00 04/09/17 08:59 03/11/17 09:49 Carvedilol (Coreg) 6.25 mg Q12HR GT 03/10/17 09:00 04/09/17 08:59 03/11/17 09:51 Dextrose (Dextrose 50%) STAT PRN IV Hypoglycemia 03/10/17 21:30 04/09/17 21:29 Furosemide (Lasix) 40 mg DAILY PEG 03/11/17 09:00 04/10/17 08:59 03/11/17 09:50 Levetiracetam (Keppra) 500 mg Q12HR GT 03/10/17 09:00 04/09/17 08:59 03/11/17 09:51 Lisinopril (Zestril) 10 mg DAILY GT 03/10/17 09:00 04/09/17 08:59 03/11/17 09:51 Lorazepam (Ativan 2mg/ml 1ml) 2 mg EVERY 2 HOURS PRN IV For Anxiety 03/10/17 00:00 03/17/17 00:00 Morphine Sulfate (Morphine Sulfate) 4 mg EVERY 4 HOURS PRN IVP Severe Pain (Pain Scale 7-10) 03/10/17 01:00 03/17/17 00:59 Ondansetron HCl (Zofran) 4 mg Q6H PRN IVP Nausea & Vomiting 03/10/17 03:30 04/09/17 03:29 Pantoprazole (Protonix) 40 mg DAILY GT 03/10/17 09:00 04/09/17 08:59 03/11/17 09:55 Piperacillin Sod/ Tazobactam Sod 4.5 gm/Dextrose 110 ml @ 27.5 mls/hr EVERY 8 HOURS IVPB 03/10/17 06:00 03/17/17 05:59 03/11/17 05:09 Polyethylene Glycol (Miralax) 17 gm DAILYPRN PRN ORAL Constipation 03/10/17 21:30 04/09/17 21:29 Spironolactone (Aldactone) 25 mg DAILY GT 03/11/17 09:00 04/10/17 08:59 03/11/17 09:50 Vancomycin HCl (Vanco rx to dose) 1 ea DAILY PRN MISC per Rx protocol 03/10/17 09:00 04/09/17 08:59 Vancomycin HCl/ Dextrose (Vancomycin/D5W) 275 ml @ 183.708 mls/hr Q12HR@0100,1300 IVPB 03/10/17 01:00 03/15/17 00:59 03/11/17 01:03 Warfarin Sodium (Coumadin per pharmacy) 1 ea DAILY PRN MISC Per rx protocol 03/10/17 09:00 04/09/17 08:59 Zinc Sulfate (Zinc Sulfate) 220 mg DAILY ORAL 03/10/17 09:00 04/09/17 08:59 03/11/17 09:50 MARCUS PA M.D. Mar 11, 2017 10:08
[2017-03-11] MEDS ORDERED: NS 275ml ONE (10:42)
[2017-03-11] MEDS ORDERED: Sterile Water Irrig 1000ml IRRIG ONE (10:42)
--- NOTE | 2017-03-11 10:47 | Diagnostic Imaging Report ---
Indications: Abdominal pain, elevated liver enzymes Technique: Transabdominal real-time grayscale and duplex Doppler imaging of the upper abdomen and retroperitoneum was performed. Findings: Comparison: None. Liver 19 cm. Normal surface contour, parenchymal echogenicity. No focal lesions. Gallbladder contains multiple mural folds. No intraluminal stones or sludge. No mural thickening or adjacent fluid collections. Sonographic Melendez sign not reported.. Bile ducts normal caliber. Common bile duct 7 mm. Pancreas head and body unremarkable; tail obscured. Spleen unremarkable. Right kidney demonstrates mildly, diffusely increased cortical echogenicity, otherwise unremarkable. Left kidney demonstrates mildly, diffusely increased cortical echogenicity, contains 9 mm circumscribed anechoic focus lower pole, otherwise unremarkable. Abdominal aorta, intrahepatic portion of inferior vena cava patent, normal caliber. Duplex Doppler imaging demonstrates antegrade flow in splenic, portal, hepatic veins. No ascites. IMPRESSION: Sonographically unremarkable liver Bilateral normal sized echogenic kidneys compatible with medical renal disease, nonspecific Small left renal cortical cyst Pancreatic tail obscured Remainder of exam unremarkable.
[2017-03-11] MEDS ORDERED: D5 1/2NS 1000ml IV ONE (10:48)
[2017-03-11] MEDS ORDERED: Tubing IV Secondary IV ONE (10:48)
--- NOTE | 2017-03-11 11:32 | Pulmonology Progress Note ---
Assessment/Plan Problems: (1) Respiratory distress (2) Chronic respiratory acidosis (3) Feeding by G-tube (4) CHF (congestive heart failure) (5) Pneumonia (6) EF of 30% Assessment/Plan back on vent becasue of episodes of tachypnea echo result noted, EF of 30 optimize cardiac meds f/u cultures continue antibiotics tolerating feeding f/u GI f/u liver enzymes Subjective ROS Limited/Unobtainable: No Interval Events: awake, open eyes, comfortable Constitutional: Reports: no symptoms HEENT: Repors: no symptoms Respiratory: Reports: no symptoms Allergies: Coded Allergies: No Known Allergies (Unverified , 03/07/17) Objective Last 24 Hour Vital Signs Date Time Temp Pulse Resp B/P Pulse Ox O2 Delivery O2 Flow Rate FiO2 03/11/17 11:17 87 24 40 03/11/17 09:51 101/59 03/11/17 09:51 96 101/59 03/11/17 09:29 96 20 40 03/11/17 08:00 95 03/11/17 08:00 97.9 93 21 100/62 98 Mechanical Ventilator 40 03/11/17 08:00 40 03/11/17 07:03 91 21 40 03/11/17 05:01 87 20 40 03/11/17 04:00 40 03/11/17 04:00 97.7 86 21 101/59 98 Mechanical Ventilator 40 03/11/17 04:00 87 03/11/17 03:12 47 23 40 03/11/17 00:59 101 19 40 03/11/17 00:00 99.0 95 20 97/67 98 Mechanical Ventilator 40 03/11/17 00:00 40 03/11/17 00:00 91 03/10/17 23:11 91 19 40 03/10/17 21:09 96 100/62 03/10/17 20:43 96 20 40 03/10/17 20:00 91 03/10/17 20:00 40 03/10/17 20:00 99.0 96 18 100/62 98 Mechanical Ventilator 40 03/10/17 19:43 93 21 40 03/10/17 17:24 92 19 40 03/10/17 16:00 87 03/10/17 16:00 98.2 88 22 100/64 98 Mechanical Ventilator 40 4/24/17 15:25 91 22 40 03/10/17 12:44 88 16 40 03/10/17 12:00 98.1 84 21 97/62 99 Mechanical Ventilator 40 03/10/17 12:00 85 Intake and Output 03/10/17 03/11/17 19:00 07:00 Intake Total 657.500 ml 820.000 ml Output Total 500 ml 500 ml Balance 157.500 ml 320.000 ml Intake Free Water 150 ml 50 ml IV Total 467.500 ml 440.000 ml Tube Feeding 40 ml 330 ml Output Urine Total 500 ml 500 ml Objective General Appearance: WD/WN HEENT: normocephalic, atraumatic, trach in place Respiratory/Chest: chest wall non-tender, lungs rhonchi Cardiovascular: normal peripheral pulses, normal rate, regular rhythm Abdomen: normal bowel sounds, soft, non tender, no organomegaly, Gtube, sherrill in place Extremities: no cyanosis, no clubbing Skin: no rash, no lesions Microbiology Date/Time Source Procedure Growth Status 03/09/17 13:00 Sacral Wound Gram Stain - Final Resulted 03/09/17 13:00 Wound Culture - Preliminary Gram Negative Bacillus 1 Gram Negative Bacillus 2 Gram Negative Bacillus 3 Resulted Laboratory Tests 03/11/17 03:45: White Blood Count 13.2H, Red Blood Count 3.60L, Hemoglobin 8.5L, Hematocrit 28.6L, Mean Corpuscular Volume 80, Mean Corpuscular Hemoglobin 23.7L, Mean Corpuscular Hemoglobin Concent 29.8L, Red Cell Distribution Width 19.7H, Platelet Count 725H, Mean Platelet Volume 5.5L, Neutrophils (%) (Auto) 78.2H, Lymphocytes (%) (Auto) 10.8L, Monocytes (%) (Auto) 8.4, Eosinophils (%) (Auto) 2.0, Basophils (%) (Auto) 0.6, Reticulocyte Count 2.6H, Prothrombin Time 51.7H, Prothromb Time International Ratio 4.8H, Activated Partial Thromboplast Time 48H , Sodium Level 139, Potassium Level 3.9, Chloride Level 98, Carbon Dioxide Level 27, Anion Gap 14, Blood Urea Nitrogen 23, Creatinine 0.7, Estimat Glomerular Filtration Rate > 60, Glucose Level 126H, Calcium Level 9.4, Iron Level 14L, Total Iron Binding Capacity 150L, Percent Iron Saturation 9L, Unsaturated Iron Binding 136, Ferritin 447H, Total Bilirubin 0.3, Aspartate Amino Transf (AST/SGOT) 153H, Alanine Aminotransferase (ALT/SGPT) 209H, Alkaline Phosphatase 146H, Total Protein 7.6, Albumin 2.4L, Globulin 5.2, Albumin/Globulin Ratio 0.4L, Alpha Fetoprotein [Pending], Carcinoembryonic Antigen 7.4H, Vitamin B12 Level 878, Folate [Pending], Thyroid Stimulating Hormone (TSH) 2.250, Free Thyroxine 1.42, Hepatitis A IgM Antibody [Pending], Hepatitis B Surface Antigen [Pending], Hepatitis B Core IgM Antibody [Pending], Hepatitis C Antibody [Pending] Current Medications Medications (Trade) Dose Ordered Sig/Tameka Route PRN Reason Start Time Stop Time Status Last Admin Dose Admin Acetaminophen (Tylenol) 650 mg Q4H PRN NG Prn Headache/Temp > 101 03/10/17 00:15 04/09/17 00:14 Acetaminophen/ Hydrocodone Bitart ([place] 5/325) 1 tab Q4H PRN ORAL Moderate Pain (Pain Scale 4-6) 03/10/17 01:30 03/17/17 01:29 Albuterol/ Ipratropium (DuoNeb 0.5-3(2.5)mg/3ml) 3 ml EVERY 4 HOURS PRN HHN Shortness of Breath 03/10/17 01:00 03/15/17 00:59 Amiodarone HCl (Cordarone) 200 mg DAILY GT 03/10/17 09:00 04/09/17 08:59 03/11/17 09:50 Aspirin (ASA) 81 mg DAILY GT 03/10/17 09:00 04/09/17 08:59 03/11/17 09:49 Carvedilol (Coreg) 6.25 mg Q12HR GT 03/10/17 09:00 04/09/17 08:59 03/11/17 09:51 Dextrose (Dextrose 50%) STAT PRN IV Hypoglycemia 03/10/17 21:30 04/09/17 21:29 Furosemide (Lasix) 40 mg DAILY PEG 03/11/17 09:00 04/10/17 08:59 03/11/17 09:50 Levetiracetam (Keppra) 500 mg Q12HR GT 03/10/17 09:00 04/09/17 08:59 03/11/17 09:51 Lisinopril (Zestril) 10 mg DAILY GT 03/10/17 09:00 04/09/17 08:59 03/11/17 09:51 Lorazepam (Ativan 2mg/ml 1ml) 2 mg EVERY 2 HOURS PRN IV For Anxiety 03/10/17 00:00 03/17/17 00:00 Morphine Sulfate (Morphine Sulfate) 4 mg EVERY 4 HOURS PRN IVP Severe Pain (Pain Scale 7-10) 03/10/17 01:00 03/17/17 00:59 Ondansetron HCl (Zofran) 4 mg Q6H PRN IVP Nausea & Vomiting 03/10/17 03:30 04/09/17 03:29 Pantoprazole (Protonix) 40 mg DAILY GT 03/10/17 09:00 04/09/17 08:59 03/11/17 09:55 Piperacillin Sod/ Tazobactam Sod 4.5 gm/Dextrose 110 ml @ 27.5 mls/hr EVERY 8 HOURS IVPB 03/10/17 06:00 03/17/17 05:59 03/11/17 05:09 Polyethylene Glycol (Miralax) 17 gm DAILYPRN PRN ORAL Constipation 03/10/17 21:30 04/09/17 21:29 Spironolactone (Aldactone) 25 mg DAILY GT 03/11/17 09:00 04/10/17 08:59 03/11/17 09:50 Vancomycin HCl (Vanco rx to dose) 1 ea DAILY PRN MISC per Rx protocol 03/10/17 09:00 04/09/17 08:59 Vancomycin HCl/ Dextrose (Vancomycin/D5W) 275 ml @ 183.708 mls/hr Q12HR@0100,1300 IVPB 03/10/17 01:00 03/15/17 00:59 03/11/17 01:03 Warfarin Sodium (Coumadin per pharmacy) 1 ea DAILY PRN MISC Per rx protocol 03/10/17 09:00 04/09/17 08:59 Zinc Sulfate (Zinc Sulfate) 220 mg DAILY ORAL 03/10/17 09:00 04/09/17 08:59 03/11/17 09:50 ODETTE SMILEY Mar 11, 2017 11:32
--- NOTE | 2017-03-11 11:52 | GI Progress Note ---
Assessment/Plan Problems: (1) EF of 30% (2) Anemia ICD Codes: D64.9 - Anemia, unspecified SNOMED: 056990498 (3) Feeding by G-tube ICD Codes: Z93.1 - Gastrostomy status SNOMED: 140654235, 063643303 (4) Leukocytosis ICD Codes: D72.829 - Elevated white blood cell count, unspecified SNOMED: 580657866, 741787239 (5) Transaminitis ICD Codes: R74.0 - Nonspecific elevation of levels of transaminase and lactic acid dehydrogenase [LDH] SNOMED: 094559370 Status: unchanged Status Narrative Discussed with Dr. Alex. Assessment/Plan iron deficient >> venofer elevated CEA >> 7.4 abd U/S reviewed >> unremarkable monitor H&H, transfuse prn GTFs per dietary fu hepatitis panel, AFP monitor LFTs, downtrending ppi fu labs Subjective Subjective limited Objective Last 24 Hour Vital Signs Date Time Temp Pulse Resp B/P Pulse Ox O2 Delivery O2 Flow Rate FiO2 03/11/17 11:17 87 24 40 03/11/17 09:51 101/59 03/11/17 09:51 96 101/59 03/11/17 09:29 96 20 40 03/11/17 08:00 95 03/11/17 08:00 97.9 93 21 100/62 98 Mechanical Ventilator 40 03/11/17 08:00 40 03/11/17 07:03 91 21 40 03/11/17 05:01 87 20 40 03/11/17 04:00 40 03/11/17 04:00 97.7 86 21 101/59 98 Mechanical Ventilator 40 03/11/17 04:00 87 03/11/17 03:12 47 23 40 03/11/17 00:59 101 19 40 03/11/17 00:00 99.0 95 20 97/67 98 Mechanical Ventilator 40 03/11/17 00:00 40 03/11/17 00:00 91 03/10/17 23:11 91 19 40 03/10/17 21:09 96 100/62 03/10/17 20:43 96 20 40 03/10/17 20:00 91 03/10/17 20:00 40 03/10/17 20:00 99.0 96 18 100/62 98 Mechanical Ventilator 40 03/10/17 19:43 93 21 40 03/10/17 17:24 92 19 40 03/10/17 16:00 87 03/10/17 16:00 98.2 88 22 100/64 98 Mechanical Ventilator 40 03/10/17 15:25 91 22 40 03/10/17 12:44 88 16 40 03/10/17 12:00 98.1 84 21 97/62 99 Mechanical Ventilator 40 03/10/17 12:00 85 Intake and Output 03/10/17 03/11/17 19:00 07:00 Intake Total 657.500 ml 820.000 ml Output Total 500 ml 500 ml Balance 157.500 ml 320.000 ml Intake Free Water 150 ml 50 ml IV Total 467.500 ml 440.000 ml Tube Feeding 40 ml 330 ml Output Urine Total 500 ml 500 ml Laboratory Tests Test 03/11/17 03:45 White Blood Count 13.2 K/UL (4.8-10.8) H Red Blood Count 3.60 M/UL (4.70-6.10) L Hemoglobin 8.5 G/DL (14.2-18.0) L Hematocrit 28.6 % (42.0-52.0) L Mean Corpuscular Volume 80 FL (80-99) Mean Corpuscular Hemoglobin 23.7 PG (27.0-31.0) L Mean Corpuscular Hemoglobin Concent 29.8 G/DL (32.0-36.0) L Red Cell Distribution Width 19.7 % (11.6-14.8) H Platelet Count 725 K/UL (150-450) H Mean Platelet Volume 5.5 FL (6.5-10.1) L Neutrophils (%) (Auto) 78.2 % (45.0-75.0) H Lymphocytes (%) (Auto) 10.8 % (20.0-45.0) L Monocytes (%) (Auto) 8.4 % (1.0-10.0) Eosinophils (%) (Auto) 2.0 % (0.0-3.0) Basophils (%) (Auto) 0.6 % (0.0-2.0) Reticulocyte Count 2.6 % (0.0-2.0) H Prothrombin Time 51.7 SEC (9.30-11.50) H Prothromb Time International Ratio 4.8 (0.9-1.1) H Activated Partial Thromboplast Time 48 SEC (23-33) H Sodium Level 139 mEQ/L (135-145) Potassium Level 3.9 mEQ/L (3.4-4.9) Chloride Level 98 mEQ/L (98-107) Carbon Dioxide Level 27 mEQ/L (20-30) Anion Gap 14 (5-15) Blood Urea Nitrogen 23 mg/dL (7-23) Creatinine 0.7 mg/dL (0.7-1.2) Estimat Glomerular Filtration Rate > 60 mL/min (>60) Glucose Level 126 mg/dL (74-106) H Calcium Level 9.4 mg/dL (8.6-10.2) Iron Level 14 ug/dL (59-158) L Total Iron Binding Capacity 150 ug/dL (250-400) L Percent Iron Saturation 9 % (15-50) L Unsaturated Iron Binding 136 ug/dL (112-346) Ferritin 447 ng/mL (10-230) H Total Bilirubin 0.3 mg/dL (0.0-1.2) Aspartate Amino Transf (AST/SGOT) 153 U/L (5-40) H Alanine Aminotransferase (ALT/SGPT) 209 U/L (3-41) H Alkaline Phosphatase 146 U/L (40-129) H Total Protein 7.6 g/dL (6.6-8.7) Albumin 2.4 g/dL (3.5-5.2) L Globulin 5.2 g/dL Albumin/Globulin Ratio 0.4 (1.0-2.7) L Alpha Fetoprotein Pending Carcinoembryonic Antigen 7.4 ng/mL H Vitamin B12 Level 878 pg/mL (211-946) Folate Pending Thyroid Stimulating Hormone (TSH) 2.250 uIU/mL (0.300-4.500) Free Thyroxine 1.42 ng/dL (0.86-1.85) Hepatitis A IgM Antibody Pending Hepatitis B Surface Antigen Pending Hepatitis B Core IgM Antibody Pending Hepatitis C Antibody Pending Height (Feet): 6 Height (Inches): 0.00 Weight (Pounds): 150 General Appearance: no apparent distress, alert Cardiovascular: normal rate Respiratory/Chest: other - mech vent Abdominal Exam: ascites, GT site - c/d/i Lani Last N.P. Mar 11, 2017 11:52
[2017-03-11 12:00] VITALS: BP 94/57
[2017-03-11 16:00] VITALS: BP 97/56
--- NOTE | 2017-03-11 16:06 | Diagnostic Imaging Report ---
Indications: DYSPNEA Technique: Portable AP chest Findings: Comparison: 03/09/17 Left costophrenic angle excluded from image. Cardiac silhouette remains enlarged. Pulmonary vascular redistribution, bilateral interstitial infiltrates persist, likely unchanged allowing for differences in technique. No new abnormality identified. IMPRESSION: Stable bilateral congestive changes
--- NOTE | 2017-03-11 16:20 | Cardiac Electrophysiology PN ---
Assessment/Plan Assessment/Plan 1. Congestive heart failure with EF 30% and BNP of more than 3000. Continue Coreg 6.25 mg twice a day, Zestril 10, Lasix and Aldactone. 2. Atrial fibrillation. Currently in sinus rhythm on Coreg, amiodarone, and Coumadin per pharmacy. 3. Status post pulseless electrical activity during transesophageal echocardiogram with no clear etiology. The patient was ruled out for myocardial infarction as well as pulmonary embolus. 4. S/P SJ ICD. Interrogation pending. 5. VDRF Status post tracheostomy 6. Dysphagia, status post percutaneous endoscopic gastrostomy placement. 7. Anoxic encephalopathy. 8. Pneumonia, on broad-spectrum intravenous antibiotics vancomycin and Zosyn. DW RN Subjective Subjective On vent via tracheostomy. Opens eyes but nonverbal. No arrhythmias on tele.RN at bedside. Objective Last 24 Hour Vital Signs Date Time Temp Pulse Resp B/P Pulse Ox O2 Delivery O2 Flow Rate FiO2 03/11/17 15:18 88 22 40 03/11/17 13:03 84 24 40 03/11/17 12:00 98.2 79 22 94/57 99 Mechanical Ventilator 40 03/11/17 11:17 87 24 40 03/11/17 09:51 101/59 03/11/17 09:51 96 101/59 03/11/17 09:29 96 20 40 03/11/17 08:00 95 03/11/17 08:00 97.9 93 21 100/62 98 Mechanical Ventilator 40 03/11/17 08:00 40 03/11/17 07:03 91 21 40 03/11/17 05:01 87 20 40 03/11/17 04:00 40 03/11/17 04:00 97.7 86 21 101/59 98 Mechanical Ventilator 40 03/11/17 04:00 87 03/11/17 03:12 47 23 40 03/11/17 00:59 101 19 40 03/11/17 00:00 99.0 95 20 97/67 98 Mechanical Ventilator 40 03/11/17 00:00 40 03/11/17 00:00 91 03/10/17 23:11 91 19 40 03/10/17 21:09 96 100/62 03/10/17 20:43 96 20 40 03/10/17 20:00 91 03/10/17 20:00 40 03/10/17 20:00 99.0 96 18 100/62 98 Mechanical Ventilator 40 03/10/17 19:43 93 21 40 03/10/17 17:24 92 19 40 Intake and Output 03/10/17 03/11/17 19:00 07:00 Intake Total 657.500 ml 820.000 ml Output Total 500 ml 500 ml Balance 157.500 ml 320.000 ml Intake Free Water 150 ml 50 ml IV Total 467.500 ml 440.000 ml Tube Feeding 40 ml 330 ml Output Urine Total 500 ml 500 ml Laboratory Tests Test 03/11/17 03:45 03/11/17 12:40 White Blood Count 13.2 K/UL (4.8-10.8) H Red Blood Count 3.60 M/UL (4.70-6.10) L Hemoglobin 8.5 G/DL (14.2-18.0) L Hematocrit 28.6 % (42.0-52.0) L Mean Corpuscular Volume 80 FL (80-99) Mean Corpuscular Hemoglobin 23.7 PG (27.0-31.0) L Mean Corpuscular Hemoglobin Concent 29.8 G/DL (32.0-36.0) L Red Cell Distribution Width 19.7 % (11.6-14.8) H Platelet Count 725 K/UL (150-450) H Mean Platelet Volume 5.5 FL (6.5-10.1) L Neutrophils (%) (Auto) 78.2 % (45.0-75.0) H Lymphocytes (%) (Auto) 10.8 % (20.0-45.0) L Monocytes (%) (Auto) 8.4 % (1.0-10.0) Eosinophils (%) (Auto) 2.0 % (0.0-3.0) Basophils (%) (Auto) 0.6 % (0.0-2.0) Reticulocyte Count 2.6 % (0.0-2.0) H Prothrombin Time 51.7 SEC (9.30-11.50) H Prothromb Time International Ratio 4.8 (0.9-1.1) H Activated Partial Thromboplast Time 48 SEC (23-33) H Sodium Level 139 mEQ/L (135-145) Potassium Level 3.9 mEQ/L (3.4-4.9) Chloride Level 98 mEQ/L (98-107) Carbon Dioxide Level 27 mEQ/L (20-30) Anion Gap 14 (5-15) Blood Urea Nitrogen 23 mg/dL (7-23) Creatinine 0.7 mg/dL (0.7-1.2) Estimat Glomerular Filtration Rate > 60 mL/min (>60) Glucose Level 126 mg/dL (74-106) H Calcium Level 9.4 mg/dL (8.6-10.2) Iron Level 14 ug/dL (59-158) L Total Iron Binding Capacity 150 ug/dL (250-400) L Percent Iron Saturation 9 % (15-50) L Unsaturated Iron Binding 136 ug/dL (112-346) Ferritin 447 ng/mL (10-230) H Total Bilirubin 0.3 mg/dL (0.0-1.2) Aspartate Amino Transf (AST/SGOT) 153 U/L (5-40) H Alanine Aminotransferase (ALT/SGPT) 209 U/L (3-41) H Alkaline Phosphatase 146 U/L (40-129) H Total Protein 7.6 g/dL (6.6-8.7) Albumin 2.4 g/dL (3.5-5.2) L Globulin 5.2 g/dL Albumin/Globulin Ratio 0.4 (1.0-2.7) L Alpha Fetoprotein Pending Carcinoembryonic Antigen 7.4 ng/mL H Vitamin B12 Level 878 pg/mL (211-946) Folate Pending Thyroid Stimulating Hormone (TSH) 2.250 uIU/mL (0.300-4.500) Free Thyroxine 1.42 ng/dL (0.86-1.85) Hepatitis A IgM Antibody Pending Hepatitis B Surface Antigen Pending Hepatitis B Core IgM Antibody Pending Hepatitis C Antibody Pending Vancomycin Level Trough 15.8 ug/mL (5.0-12.0) H Microbiology Date/Time Source Procedure Growth Status 03/11/17 05:00 Sputum Gram Stain - Final Resulted 03/11/17 05:00 Sputum Sputum Culture Pending Resulted 03/09/17 13:00 Sacral Wound Gram Stain - Final Resulted 03/09/17 13:00 Wound Culture - Preliminary Gram Negative Bacillus 1 Gram Negative Bacillus 2 Gram Negative Bacillus 3 Resulted Objective HEAD AND NECK: Shows no JVD. Status post tracheostomy CARDIOVASCULAR: Shows regular S1 and S2. No gallop. The defibrillator is in subclavian. ABDOMEN: Soft. There is a G-tube. EXTREMITIES: No pitting edema. DAMIR POOL Mar 11, 2017 16:20
[2017-03-11 20:48] VITALS: BP 100/56
[2017-03-11] MEDS: Iron Sucrose 100 MG in NS 55 ML IVPB SCH (21:02)
[2017-03-12] VITALS: BP 104/65
[2017-03-12] MEDS: Vancomycin 1 GM in D5W 275 ML IVPB SCH ×2 (01:08→12:15)
[2017-03-12 04:00] VITALS: BP 103/61
[2017-03-12 05:29] LABS: BASOPHILS % (AUTO) 0.4 % (0.0-2.0); EOSINOPHILS % (AUTO) 2.5 % (0.0-3.0); LYMPHOCYTES % (AUTO) 10.2 % (20.0-45.0); MEAN CORPUSCULAR HEMOGLOBIN 23.3 PG (27.0-31.0); MEAN CORPUSCULAR HGB CONC 29.7 G/DL (32.0-36.0); MEAN CORPUSCULAR VOLUME 79 FL (80-99); MEAN PLATELET VOLUME 5.4 FL (6.5-10.1); NEUTROPHILS % (AUTO) 78.9 % (45.0-75.0); PLATELET COUNT 716 K/UL (150-450); RED BLOOD COUNT 3.78 M/UL (4.70-6.10); RED CELL DISTRIBUTION WIDTH 19.6 % (11.6-14.8); WHITE BLOOD COUNT 12.3 K/UL (4.8-10.8)
[2017-03-12 05:46] LABS: INR 3.2 (0.9-1.1); PROTHROMBIN TIME 33.8 SEC (9.30-11.50)
[2017-03-12 05:55] LABS: ALANINE AMINOTRANSFERASE 252 U/L (3-41); ALBUMIN/GLOBULIN RATIO 0.4 (1.0-2.7); ANION GAP 13 (5-15); ASPARTATE AMINO TRANSFERASE 207 U/L (5-40); CALCIUM 8.9 mg/dL (8.6-10.2); CARBON DIOXIDE 26 mEQ/L (20-30); CHLORIDE 99 mEQ/L (98-107); CREATININE 0.5 mg/dL (0.7-1.2); GLOMERULAR FILTRATION RATE > 60 mL/min (>60); HEMOLYSIS 0; POTASSIUM 4.1 mEQ/L (3.4-4.9); SODIUM 138 mEQ/L (135-145); TOTAL PROTEIN 7.5 g/dL (6.6-8.7)
[2017-03-12] MEDS: Piperacillin/Tazobactam 4.5 GM in D5W 110 ML IVPB SCH ×3 (05:56→21:58)
[2017-03-12 08:00] VITALS: BP 100/60
[2017-03-12] MEDS: Lisinopril 10mg tab GT SCH (09:00)
[2017-03-12] MEDS: levETIRAcetam 500mg/5ml Liquid GT SCH ×2 (09:37→21:05)
[2017-03-12] MEDS: Aspirin Baby 81mg GT SCH (09:37)
[2017-03-12] MEDS: Zinc Sulfate 220mg cap ORAL SCH (09:37)
[2017-03-12] MEDS: Amiodarone 200mg tab GT SCH (09:38)
[2017-03-12] MEDS: Furosemide 40mg tab PEG SCH (09:38)
[2017-03-12] MEDS: Spironolactone 25mg tab GT SCH (09:38)
[2017-03-12] MEDS: Carvedilol 6.25mg Tab GT SCH ×2 (09:38→21:04)
[2017-03-12] MEDS: Pantoprazole 40mg pkt GT SCH (09:44)
[2017-03-12 12:00] VITALS: BP 89/52
--- NOTE | 2017-03-12 12:10 | GI Progress Note ---
Assessment/Plan Problems: (1) Anemia ICD Codes: D64.9 - Anemia, unspecified SNOMED: 225934043 (2) Feeding by G-tube ICD Codes: Z93.1 - Gastrostomy status SNOMED: 254296235, 121444337 (3) Leukocytosis ICD Codes: D72.829 - Elevated white blood cell count, unspecified SNOMED: 555221385, 328674340 (4) Transaminitis ICD Codes: R74.0 - Nonspecific elevation of levels of transaminase and lactic acid dehydrogenase [LDH] SNOMED: 574985746 Status: unchanged Status Narrative Discussed with Dr. Alex. Assessment/Plan iron deficient >> venofer elevated CEA >> 7.4 AFP >> WNL abd U/S reviewed >> unremarkable Hep C positive OB negative monitor H&H, transfuse prn GTFs per dietary monitor LFTs ppi fu labs Subjective Subjective limited Objective Last 24 Hour Vital Signs Date Time Temp Pulse Resp B/P Pulse Ox O2 Delivery O2 Flow Rate FiO2 03/12/17 12:00 40 03/12/17 11:08 80 22 40 03/12/17 09:38 87 100/60 03/12/17 09:04 83 20 40 03/12/17 09:00 100/60 03/12/17 08:00 93 03/12/17 08:00 40 03/12/17 08:00 98.9 87 20 100/60 99 Mechanical Ventilator 40 03/12/17 07:12 84 20 40 03/12/17 05:26 82 20 40 03/12/17 04:00 40 03/12/17 04:00 97.5 93 24 103/61 99 Mechanical Ventilator 40 03/12/17 04:00 93 03/12/17 03:14 79 20 40 03/12/17 01:00 81 20 40 03/12/17 00:00 89 03/12/17 00:00 98.2 85 24 104/65 98 Mechanical Ventilator 40 03/12/17 00:00 40 03/11/17 23:22 84 20 40 03/11/17 21:03 85 22 40 03/11/17 21:02 89 100/56 03/11/17 20:48 98.6 89 21 100/56 98 Mechanical Ventilator 40 03/11/17 20:00 87 03/11/17 20:00 40 03/11/17 19:24 85 18 40 03/11/17 16:49 88 22 40 03/11/17 16:00 90 03/11/17 16:00 40 03/11/17 16:00 98.2 86 22 97/56 99 Mechanical Ventilator 40 03/11/17 15:18 88 22 40 03/11/17 13:03 84 24 40 Intake and Output 03/11/17 03/12/17 18:59 06:59 Intake Total 1072.500 ml 1380.000 ml Output Total 600 ml Balance 472.500 ml 1380.000 ml Intake Free Water 150 ml 100 ml IV Total 412.500 ml 680.000 ml Tube Feeding 510 ml 600 ml Output Urine Total 600 ml # Bowel Movements 1 Laboratory Tests Test 03/11/17 12:40 03/11/17 17:00 03/12/17 04:15 Vancomycin Level Trough 15.8 ug/mL (5.0-12.0) H Stool Occult Blood Negative (NEGATIVE) White Blood Count 12.3 K/UL (4.8-10.8) H Red Blood Count 3.78 M/UL (4.70-6.10) L Hemoglobin 8.8 G/DL (14.2-18.0) L Hematocrit 29.7 % (42.0-52.0) L Mean Corpuscular Volume 79 FL (80-99) L Mean Corpuscular Hemoglobin 23.3 PG (27.0-31.0) L Mean Corpuscular Hemoglobin Concent 29.7 G/DL (32.0-36.0) L Red Cell Distribution Width 19.6 % (11.6-14.8) H Platelet Count 716 K/UL (150-450) H Mean Platelet Volume 5.4 FL (6.5-10.1) L Neutrophils (%) (Auto) 78.9 % (45.0-75.0) H Lymphocytes (%) (Auto) 10.2 % (20.0-45.0) L Monocytes (%) (Auto) 8.0 % (1.0-10.0) Eosinophils (%) (Auto) 2.5 % (0.0-3.0) Basophils (%) (Auto) 0.4 % (0.0-2.0) Prothrombin Time 33.8 SEC (9.30-11.50) H Prothromb Time International Ratio 3.2 (0.9-1.1) H Sodium Level 138 mEQ/L (135-145) Potassium Level 4.1 mEQ/L (3.4-4.9) Chloride Level 99 mEQ/L (98-107) Carbon Dioxide Level 26 mEQ/L (20-30) Anion Gap 13 (5-15) Blood Urea Nitrogen 22 mg/dL (7-23) Creatinine 0.5 mg/dL (0.7-1.2) L Estimat Glomerular Filtration Rate > 60 mL/min (>60) Glucose Level 127 mg/dL (74-106) H Calcium Level 8.9 mg/dL (8.6-10.2) Total Bilirubin 0.3 mg/dL (0.0-1.2) Aspartate Amino Transf (AST/SGOT) 207 U/L (5-40) H Alanine Aminotransferase (ALT/SGPT) 252 U/L (3-41) H Alkaline Phosphatase 147 U/L (40-129) H Total Protein 7.5 g/dL (6.6-8.7) Albumin 2.4 g/dL (3.5-5.2) L Globulin 5.1 g/dL Albumin/Globulin Ratio 0.4 (1.0-2.7) L Height (Feet): 6 Height (Inches): 0.00 Weight (Pounds): 150 General Appearance: no apparent distress Cardiovascular: normal rate Respiratory/Chest: other - mech vent Abdominal Exam: site - c/d/i Lani Last N.P. Mar 12, 2017 12:10
[2017-03-12] MEDS: Acetaminophen 650mg/20.3ml NG PRN (12:17)
--- NOTE | 2017-03-12 12:21 | Pulmonology Progress Note ---
Assessment/Plan Problems: (1) Respiratory distress (2) Chronic respiratory acidosis (3) Feeding by G-tube (4) CHF (congestive heart failure) (5) Pneumonia (6) EF of 30% Assessment/Plan continue vent b echo result noted, EF of 30 optimize cardiac meds f/u cultures continue antibiotics tolerating feeding f/u GI f/u liver enzymes wbc decreasing slowly Subjective ROS Limited/Unobtainable: No Constitutional: Reports: no symptoms Allergies: Coded Allergies: No Known Allergies (Unverified , 03/07/17) Objective Last 24 Hour Vital Signs Date Time Temp Pulse Resp B/P Pulse Ox O2 Delivery O2 Flow Rate FiO2 03/12/17 12:00 40 03/12/17 11:08 80 22 40 03/12/17 09:38 87 100/60 03/12/17 09:04 83 20 40 03/12/17 09:00 100/60 03/12/17 08:00 93 03/12/17 08:00 40 03/12/17 08:00 98.9 87 20 100/60 99 Mechanical Ventilator 40 03/12/17 07:12 84 20 40 03/12/17 05:26 82 20 40 03/12/17 04:00 40 03/12/17 04:00 97.5 93 24 103/61 99 Mechanical Ventilator 40 03/12/17 04:00 93 03/12/17 03:14 79 20 40 03/12/17 01:00 81 20 40 03/12/17 00:00 89 03/12/17 00:00 98.2 85 24 104/65 98 Mechanical Ventilator 40 03/12/17 00:00 40 03/11/17 23:22 84 20 40 03/11/17 21:03 85 22 40 03/11/17 21:02 89 100/56 03/11/17 20:48 98.6 89 21 100/56 98 Mechanical Ventilator 40 03/11/17 20:00 87 03/11/17 20:00 40 03/11/17 19:24 85 18 40 03/11/17 16:49 88 22 40 03/11/17 16:00 90 03/11/17 16:00 40 03/11/17 16:00 98.2 86 22 97/56 99 Mechanical Ventilator 40 03/11/17 15:18 88 22 40 03/11/17 13:03 84 24 40 Intake and Output 03/11/17 03/12/17 19:00 07:00 Intake Total 1182.500 ml 1230.000 ml Output Total 600 ml Balance 582.500 ml 1230.000 ml Intake Free Water 250 ml IV Total 412.500 ml 680.000 ml Tube Feeding 520 ml 550 ml Output Urine Total 600 ml # Bowel Movements 1 Objective General Appearance: WD/WN HEENT: normocephalic, atraumatic, trach in place Respiratory/Chest: chest wall non-tender, lungs rhonchi Cardiovascular: normal peripheral pulses, normal rate, regular rhythm Abdomen: normal bowel sounds, soft, non tender, no organomegaly, Gtube, sherrill in place Extremities: no cyanosis, no clubbing Skin: no rash, no lesions Microbiology Date/Time Source Procedure Growth Status 03/11/17 05:00 Sputum Gram Stain - Final Resulted 03/11/17 05:00 Sputum Culture - Preliminary Gram Negative Bacillus 1 Resulted 03/09/17 13:00 Sacral Wound Gram Stain - Final Resulted 03/09/17 13:00 Wound Culture - Preliminary Klebsiella Pneumoniae Proteus Mirabilis Resulted Laboratory Tests 03/11/17 12:40: Vancomycin Level Trough 15.8H 03/11/17 17:00: Stool Occult Blood Negative 03/12/17 04:15: White Blood Count 12.3H, Red Blood Count 3.78L, Hemoglobin 8.8L, Hematocrit 29.7L, Mean Corpuscular Volume 79L, Mean Corpuscular Hemoglobin 23.3L, Mean Corpuscular Hemoglobin Concent 29.7L, Red Cell Distribution Width 19.6H, Platelet Count 716H, Mean Platelet Volume 5.4L, Neutrophils (%) (Auto) 78.9H, Lymphocytes (%) (Auto) 10.2L, Monocytes (%) (Auto) 8.0, Eosinophils (%) (Auto) 2.5, Basophils (%) (Auto) 0.4, Prothrombin Time 33.8H, Prothromb Time International Ratio 3.2H, Sodium Level 138, Potassium Level 4.1, Chloride Level 99, Carbon Dioxide Level 26, Anion Gap 13, Blood Urea Nitrogen 22, Creatinine 0.5L, Estimat Glomerular Filtration Rate > 60, Glucose Level 127H, Calcium Level 8.9, Total Bilirubin 0.3, Aspartate Amino Transf (AST/SGOT) 207H, Alanine Aminotransferase (ALT/SGPT) 252H, Alkaline Phosphatase 147H, Total Protein 7.5, Albumin 2.4L, Globulin 5.1, Albumin/Globulin Ratio 0.4L Current Medications Medications (Trade) Dose Ordered Sig/Tameka Route PRN Reason Start Time Stop Time Status Last Admin Dose Admin Acetaminophen (Tylenol) 650 mg Q4H PRN NG Prn Headache/Temp > 101 03/10/17 00:15 04/09/17 00:14 03/12/17 12:17 Acetaminophen/ Hydrocodone Bitart ([place] 5/325) 1 tab Q4H PRN ORAL Moderate Pain (Pain Scale 4-6) 03/10/17 01:30 03/17/17 01:29 Albuterol/ Ipratropium (DuoNeb 0.5-3(2.5)mg/3ml) 3 ml EVERY 4 HOURS PRN HHN Shortness of Breath 03/10/17 01:00 03/15/17 00:59 Amiodarone HCl (Cordarone) 200 mg DAILY GT 03/10/17 09:00 04/09/17 08:59 03/12/17 09:38 Aspirin (ASA) 81 mg DAILY GT 03/10/17 09:00 04/09/17 08:59 03/12/17 09:37 Carvedilol (Coreg) 6.25 mg Q12HR GT 03/10/17 09:00 04/09/17 08:59 03/12/17 09:38 Dextrose (Dextrose 50%) STAT PRN IV Hypoglycemia 03/10/17 21:30 04/09/17 21:29 Furosemide 40 mg 40 mg DAILY PEG 03/11/17 09:00 04/10/17 08:59 03/12/17 09:38 Iron Sucrose/ Sodium Chloride (Venofer/Sodium Chloride) 60 ml @ 240 mls/hr BEDTIME IVPB 03/11/17 21:00 03/13/17 21:14 03/11/17 21:02 Lansoprazole (Prevacid) 30 mg DAILY GT 03/13/17 09:00 04/12/17 08:59 Levetiracetam (Keppra) 500 mg Q12HR GT 03/10/17 09:00 04/09/17 08:59 03/12/17 09:37 Lisinopril (Zestril) 10 mg DAILY GT 03/10/17 09:00 04/09/17 08:59 03/11/17 09:51 Lorazepam (Ativan 2mg/ml 1ml) 2 mg EVERY 2 HOURS PRN IV For Anxiety 03/10/17 00:00 03/17/17 00:00 Morphine Sulfate (Morphine Sulfate) 4 mg EVERY 4 HOURS PRN IVP Severe Pain (Pain Scale 7-10) 03/10/17 01:00 03/17/17 00:59 Ondansetron HCl (Zofran) 4 mg Q6H PRN IVP Nausea & Vomiting 03/10/17 03:30 04/09/17 03:29 Piperacillin Sod/ Tazobactam Sod 4.5 gm/Dextrose 110 ml @ 27.5 mls/hr EVERY 8 HOURS IVPB 03/10/17 06:00 03/17/17 05:59 03/12/17 05:56 Polyethylene Glycol (Miralax) 17 gm DAILYPRN PRN ORAL Constipation 03/10/17 21:30 04/09/17 21:29 Spironolactone (Aldactone) 25 mg DAILY GT 03/11/17 09:00 04/10/17 08:59 03/12/17 09:38 Vancomycin HCl (Vanco rx to dose) 1 ea DAILY PRN MISC per Rx protocol 03/10/17 09:00 04/09/17 08:59 Vancomycin HCl/ Dextrose (Vancomycin/D5W) 275 ml @ 183.708 mls/hr Q12HR@0100,1300 IVPB 03/10/17 01:00 03/15/17 00:59 03/12/17 12:15 Warfarin Sodium (Coumadin per pharmacy) 1 ea DAILY PRN MISC Per rx protocol 03/10/17 09:00 04/09/17 08:59 Warfarin Sodium (Coumadin) 2 mg COUMADIN ONCE ORAL 03/12/17 17:00 03/12/17 17:01 Zinc Sulfate (Zinc Sulfate) 220 mg DAILY ORAL 03/10/17 09:00 04/09/17 08:59 03/12/17 09:37 ODETTE SMILEY Mar 12, 2017 12:21
--- NOTE | 2017-03-12 14:12 | Cardiac Electrophysiology PN ---
Assessment/Plan Assessment/Plan 1. Congestive heart failure with EF 30% and BNP of more than 3000. Continue Coreg 6.25 mg twice a day, Zestril 10, Lasix 40 and Aldactone 25 mg daily. 2. Paroxysmal Atrial fibrillation. In sinus rhythm on Coreg, amiodarone, and Coumadin per pharmacy. 3. Status post pulseless electrical activity during transesophageal echocardiogram with no clear etiology at [facility]. Ruled out for myocardial infarction as well as pulmonary embolus. 4. S/P SJ ICD. Interrogated today and showed normal function. Pacer/ICD will not pace if intrinsic heart rate more than 60. 5. VDRF Status post tracheostomy 6. Dysphagia, status post percutaneous endoscopic gastrostomy placement. 7. Anoxic encephalopathy. 8. Pneumonia, on broad-spectrum intravenous antibiotics vancomycin and Zosyn. 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 Subjective Subjective On vent via tracheostomy.Nonverbal. No arrhythmias on tele.Euvolemic.There was a question of why pacer/ICD not pacing. Objective Last 24 Hour Vital Signs Date Time Temp Pulse Resp B/P Pulse Ox O2 Delivery O2 Flow Rate FiO2 03/12/17 12:56 98.5 03/12/17 12:53 83 20 40 03/12/17 12:00 100.8 83 23 89/52 99 Mechanical Ventilator 40 03/12/17 12:00 84 03/12/17 12:00 40 03/12/17 11:08 80 22 40 03/12/17 09:38 87 100/60 03/12/17 09:04 83 20 40 03/12/17 09:00 100/60 03/12/17 08:00 93 03/12/17 08:00 40 03/12/17 08:00 98.9 87 20 100/60 99 Mechanical Ventilator 40 03/12/17 07:12 84 20 40 03/12/17 05:26 82 20 40 03/12/17 04:00 40 03/12/17 04:00 97.5 93 24 103/61 99 Mechanical Ventilator 40 03/12/17 04:00 93 03/12/17 03:14 79 20 40 03/12/17 01:00 81 20 40 03/12/17 00:00 89 03/12/17 00:00 98.2 85 24 104/65 98 Mechanical Ventilator 40 03/12/17 00:00 40 03/11/17 23:22 84 20 40 03/11/17 21:03 85 22 40 03/11/17 21:02 89 100/56 03/11/17 20:48 98.6 89 21 100/56 98 Mechanical Ventilator 40 03/11/17 20:00 87 03/11/17 20:00 40 03/11/17 19:24 85 18 40 03/11/17 16:49 88 22 40 03/11/17 16:00 90 03/11/17 16:00 40 03/11/17 16:00 98.2 86 22 97/56 99 Mechanical Ventilator 40 03/11/17 15:18 88 22 40 Intake and Output 03/11/17 03/12/17 19:00 07:00 Intake Total 1182.500 ml 1230.000 ml Output Total 600 ml Balance 582.500 ml 1230.000 ml Intake Free Water 250 ml IV Total 412.500 ml 680.000 ml Tube Feeding 520 ml 550 ml Output Urine Total 600 ml # Bowel Movements 1 Laboratory Tests Test 03/11/17 17:00 03/12/17 04:15 Stool Occult Blood Negative (NEGATIVE) White Blood Count 12.3 K/UL (4.8-10.8) H Red Blood Count 3.78 M/UL (4.70-6.10) L Hemoglobin 8.8 G/DL (14.2-18.0) L Hematocrit 29.7 % (42.0-52.0) L Mean Corpuscular Volume 79 FL (80-99) L Mean Corpuscular Hemoglobin 23.3 PG (27.0-31.0) L Mean Corpuscular Hemoglobin Concent 29.7 G/DL (32.0-36.0) L Red Cell Distribution Width 19.6 % (11.6-14.8) H Platelet Count 716 K/UL (150-450) H Mean Platelet Volume 5.4 FL (6.5-10.1) L Neutrophils (%) (Auto) 78.9 % (45.0-75.0) H Lymphocytes (%) (Auto) 10.2 % (20.0-45.0) L Monocytes (%) (Auto) 8.0 % (1.0-10.0) Eosinophils (%) (Auto) 2.5 % (0.0-3.0) Basophils (%) (Auto) 0.4 % (0.0-2.0) Prothrombin Time 33.8 SEC (9.30-11.50) H Prothromb Time International Ratio 3.2 (0.9-1.1) H Sodium Level 138 mEQ/L (135-145) Potassium Level 4.1 mEQ/L (3.4-4.9) Chloride Level 99 mEQ/L (98-107) Carbon Dioxide Level 26 mEQ/L (20-30) Anion Gap 13 (5-15) Blood Urea Nitrogen 22 mg/dL (7-23) Creatinine 0.5 mg/dL (0.7-1.2) L Estimat Glomerular Filtration Rate > 60 mL/min (>60) Glucose Level 127 mg/dL (74-106) H Calcium Level 8.9 mg/dL (8.6-10.2) Total Bilirubin 0.3 mg/dL (0.0-1.2) Aspartate Amino Transf (AST/SGOT) 207 U/L (5-40) H Alanine Aminotransferase (ALT/SGPT) 252 U/L (3-41) H Alkaline Phosphatase 147 U/L (40-129) H Total Protein 7.5 g/dL (6.6-8.7) Albumin 2.4 g/dL (3.5-5.2) L Globulin 5.1 g/dL Albumin/Globulin Ratio 0.4 (1.0-2.7) L Microbiology Date/Time Source Procedure Growth Status 03/11/17 05:00 Sputum Gram Stain - Final Resulted 03/11/17 05:00 Sputum Culture - Preliminary Gram Negative Bacillus 1 Resulted Objective HEAD AND NECK: Shows no JVD. Status post tracheostomy CARDIOVASCULAR: Shows regular S1 and S2. No gallop. The defibrillator is in left subclavian. ABDOMEN: Soft. There is a G-tube. EXTREMITIES: No pitting edema. DAMIR POOL Mar 12, 2017 14:12
--- NOTE | 2017-03-12 14:24 | Infectious Diseases Prog Note ---
Assessment/Plan Assessment/Plan A: 57-year-old male w low grade fever x 1 Pneumonia Scx: GNR Chest x-ray: infiltrate in the right mid lung Sepsis, SP Leukocytosis improving Fever, SP Transaminitis increased Hep C Ab + Abdominal ultrasound of liver : unremarkable Wound Cx :Colonizer History of cardiac arrest Anoxic encephalopathy Cardiomyopathy SP defibrillator placement Status post G-tube and tracheostomy Paroxysmal atrial fibrillation Hypertension P: continue vancomycin and Zosyn d# 4 / 7 Monitor Cx ( sputum culture and Blood ) Monitor CBC Monitor CMP Monitor Cxray cont vent support Subjective Constitutional: Reports: fever - x 1 low grade Allergies: Coded Allergies: No Known Allergies (Unverified , 03/07/17) Subjective Objective Vital Signs Last 24 Hour Vital Signs Date Time Temp Pulse Resp B/P Pulse Ox O2 Delivery O2 Flow Rate FiO2 03/12/17 12:56 98.5 03/12/17 12:53 83 20 40 03/12/17 12:00 100.8 83 23 89/52 99 Mechanical Ventilator 40 03/12/17 12:00 84 03/12/17 12:00 40 03/12/17 11:08 80 22 40 03/12/17 09:38 87 100/60 03/12/17 09:04 83 20 40 03/12/17 09:00 100/60 03/12/17 08:00 93 03/12/17 08:00 40 03/12/17 08:00 98.9 87 20 100/60 99 Mechanical Ventilator 40 03/12/17 07:12 84 20 40 03/12/17 05:26 82 20 40 03/12/17 04:00 40 03/12/17 04:00 97.5 93 24 103/61 99 Mechanical Ventilator 40 03/12/17 04:00 93 03/12/17 03:14 79 20 40 03/12/17 01:00 81 20 40 03/12/17 00:00 89 03/12/17 00:00 98.2 85 24 104/65 98 Mechanical Ventilator 40 03/12/17 00:00 40 03/11/17 23:22 84 20 40 03/11/17 21:03 85 22 40 03/11/17 21:02 89 100/56 03/11/17 20:48 98.6 89 21 100/56 98 Mechanical Ventilator 40 03/11/17 20:00 87 03/11/17 20:00 40 03/11/17 19:24 85 18 40 03/11/17 16:49 88 22 40 03/11/17 16:00 90 03/11/17 16:00 40 03/11/17 16:00 98.2 86 22 97/56 99 Mechanical Ventilator 40 03/11/17 15:18 88 22 40 Height (Feet): 6 Height (Inches): 0.00 Weight (Pounds): 150 HEENT: anicteric Respiratory/Chest: normal breath sounds Cardiovascular: no gallop/murmur Abdomen: no scars Microbiology Date/Time Source Procedure Growth Status 03/11/17 05:00 Sputum Gram Stain - Final Resulted 03/11/17 05:00 Sputum Culture - Preliminary Gram Negative Bacillus 1 Resulted Laboratory Tests Test 03/11/17 17:00 03/12/17 04:15 Stool Occult Blood Negative (NEGATIVE) White Blood Count 12.3 K/UL (4.8-10.8) H Red Blood Count 3.78 M/UL (4.70-6.10) L Hemoglobin 8.8 G/DL (14.2-18.0) L Hematocrit 29.7 % (42.0-52.0) L Mean Corpuscular Volume 79 FL (80-99) L Mean Corpuscular Hemoglobin 23.3 PG (27.0-31.0) L Mean Corpuscular Hemoglobin Concent 29.7 G/DL (32.0-36.0) L Red Cell Distribution Width 19.6 % (11.6-14.8) H Platelet Count 716 K/UL (150-450) H Mean Platelet Volume 5.4 FL (6.5-10.1) L Neutrophils (%) (Auto) 78.9 % (45.0-75.0) H Lymphocytes (%) (Auto) 10.2 % (20.0-45.0) L Monocytes (%) (Auto) 8.0 % (1.0-10.0) Eosinophils (%) (Auto) 2.5 % (0.0-3.0) Basophils (%) (Auto) 0.4 % (0.0-2.0) Prothrombin Time 33.8 SEC (9.30-11.50) H Prothromb Time International Ratio 3.2 (0.9-1.1) H Sodium Level 138 mEQ/L (135-145) Potassium Level 4.1 mEQ/L (3.4-4.9) Chloride Level 99 mEQ/L (98-107) Carbon Dioxide Level 26 mEQ/L (20-30) Anion Gap 13 (5-15) Blood Urea Nitrogen 22 mg/dL (7-23) Creatinine 0.5 mg/dL (0.7-1.2) L Estimat Glomerular Filtration Rate > 60 mL/min (>60) Glucose Level 127 mg/dL (74-106) H Calcium Level 8.9 mg/dL (8.6-10.2) Total Bilirubin 0.3 mg/dL (0.0-1.2) Aspartate Amino Transf (AST/SGOT) 207 U/L (5-40) H Alanine Aminotransferase (ALT/SGPT) 252 U/L (3-41) H Alkaline Phosphatase 147 U/L (40-129) H Total Protein 7.5 g/dL (6.6-8.7) Albumin 2.4 g/dL (3.5-5.2) L Globulin 5.1 g/dL Albumin/Globulin Ratio 0.4 (1.0-2.7) L Current Medications Medications (Trade) Dose Ordered Sig/Tameka Route PRN Reason Start Time Stop Time Status Last Admin Dose Admin Acetaminophen (Tylenol) 650 mg Q4H PRN NG Prn Headache/Temp > 101 03/10/17 00:15 04/09/17 00:14 03/12/17 12:17 Acetaminophen/ Hydrocodone Bitart ([place] 5/325) 1 tab Q4H PRN ORAL Moderate Pain (Pain Scale 4-6) 03/10/17 01:30 03/17/17 01:29 Albuterol/ Ipratropium (DuoNeb 0.5-3(2.5)mg/3ml) 3 ml EVERY 4 HOURS PRN HHN Shortness of Breath 03/10/17 01:00 03/15/17 00:59 Amiodarone HCl (Cordarone) 200 mg DAILY GT 03/10/17 09:00 04/09/17 08:59 03/12/17 09:38 Aspirin (ASA) 81 mg DAILY GT 03/10/17 09:00 04/09/17 08:59 03/12/17 09:37 Carvedilol (Coreg) 6.25 mg Q12HR GT 03/10/17 09:00 04/09/17 08:59 03/12/17 09:38 Dextrose (Dextrose 50%) STAT PRN IV Hypoglycemia 03/10/17 21:30 04/09/17 21:29 Furosemide 40 mg 40 mg DAILY PEG 03/11/17 09:00 04/10/17 08:59 03/12/17 09:38 Iron Sucrose/ Sodium Chloride (Venofer/Sodium Chloride) 60 ml @ 240 mls/hr BEDTIME IVPB 03/11/17 21:00 03/13/17 21:14 03/11/17 21:02 Lansoprazole (Prevacid) 30 mg DAILY GT 03/13/17 09:00 04/12/17 08:59 Levetiracetam (Keppra) 500 mg Q12HR GT 03/10/17 09:00 04/09/17 08:59 03/12/17 09:37 Lisinopril (Zestril) 10 mg DAILY GT 03/10/17 09:00 04/09/17 08:59 03/11/17 09:51 Lorazepam (Ativan 2mg/ml 1ml) 2 mg EVERY 2 HOURS PRN IV For Anxiety 03/10/17 00:00 03/17/17 00:00 Morphine Sulfate (Morphine Sulfate) 4 mg EVERY 4 HOURS PRN IVP Severe Pain (Pain Scale 7-10) 03/10/17 01:00 03/17/17 00:59 Ondansetron HCl (Zofran) 4 mg Q6H PRN IVP Nausea & Vomiting 03/10/17 03:30 04/09/17 03:29 Piperacillin Sod/ Tazobactam Sod 4.5 gm/Dextrose 110 ml @ 27.5 mls/hr EVERY 8 HOURS IVPB 03/10/17 06:00 03/17/17 05:59 03/12/17 05:56 Polyethylene Glycol (Miralax) 17 gm DAILYPRN PRN ORAL Constipation 03/10/17 21:30 04/09/17 21:29 Spironolactone (Aldactone) 25 mg DAILY GT 03/11/17 09:00 04/10/17 08:59 03/12/17 09:38 Vancomycin HCl (Vanco rx to dose) 1 ea DAILY PRN MISC per Rx protocol 03/10/17 09:00 04/09/17 08:59 Vancomycin HCl/ Dextrose (Vancomycin/D5W) 275 ml @ 183.708 mls/hr Q12HR@0100,1300 IVPB 03/10/17 01:00 03/15/17 00:59 03/12/17 12:15 Warfarin Sodium (Coumadin per pharmacy) 1 ea DAILY PRN MISC Per rx protocol 03/10/17 09:00 04/09/17 08:59 Warfarin Sodium (Coumadin) 2 mg COUMADIN ONCE ORAL 03/12/17 17:00 03/12/17 17:01 Zinc Sulfate (Zinc Sulfate) 220 mg DAILY ORAL 03/10/17 09:00 04/09/17 08:59 03/12/17 09:37 MARCUS PA M.D. Mar 12, 2017 14:24
[2017-03-12 16:00] VITALS: BP 86/57
[2017-03-12] MEDS ORDERED: NS 275ml ONE (16:58)
[2017-03-12] MEDS ORDERED: Tubing IV Secondary IV ONE (16:58)
[2017-03-12] MEDS ORDERED: Warfarin Sodium 2mg ORAL ONE (17:00)
[2017-03-12 20:00] VITALS: BP 105/63
[2017-03-12] MEDS: Iron Sucrose 100 MG in NS 55 ML IVPB SCH (21:05)
[2017-03-13] VITALS: BP 99/56
[2017-03-13] MEDS: Vancomycin 1 GM in D5W 275 ML IVPB SCH (01:58)
[2017-03-13 04:30] VITALS: BP 100/64
[2017-03-13] MEDS: Piperacillin/Tazobactam 4.5 GM in D5W 110 ML IVPB SCH (05:33)
[2017-03-13 05:36] LABS: BASOPHILS % (AUTO) 0.3 % (0.0-2.0); EOSINOPHILS % (AUTO) 2.6 % (0.0-3.0); LYMPHOCYTES % (AUTO) 9.9 % (20.0-45.0); MEAN CORPUSCULAR HEMOGLOBIN 23.7 PG (27.0-31.0); MEAN CORPUSCULAR HGB CONC 30.1 G/DL (32.0-36.0); MEAN CORPUSCULAR VOLUME 78 FL (80-99); MEAN PLATELET VOLUME 5.3 FL (6.5-10.1); MONOCYTES % (AUTO) 6.5 % (1.0-10.0); NEUTROPHILS % (AUTO) 80.7 % (45.0-75.0); PLATELET COUNT 778 K/UL (150-450); RED BLOOD COUNT 3.57 M/UL (4.70-6.10); RED CELL DISTRIBUTION WIDTH 19.9 % (11.6-14.8); WHITE BLOOD COUNT 13.2 K/UL (4.8-10.8)
[2017-03-13 06:07] LABS: ALANINE AMINOTRANSFERASE 239 U/L (3-41); ALBUMIN/GLOBULIN RATIO 0.5 (1.0-2.7); ANION GAP 11 (5-15); ASPARTATE AMINO TRANSFERASE 135 U/L (5-40); CARBON DIOXIDE 28 mEQ/L (20-30); CHLORIDE 101 mEQ/L (98-107); CREATININE 0.5 mg/dL (0.7-1.2); GLOMERULAR FILTRATION RATE > 60 mL/min (>60); HEMOLYSIS 0; POTASSIUM 3.8 mEQ/L (3.4-4.9); SODIUM 140 mEQ/L (135-145); TOTAL PROTEIN 7.5 g/dL (6.6-8.7)
[2017-03-13 08:00] VITALS: BP 100/58
[2017-03-13] MEDS: Zinc Sulfate 220mg cap ORAL SCH (08:39)
[2017-03-13] MEDS: levETIRAcetam 500mg/5ml Liquid GT SCH ×2 (08:39→21:25)
[2017-03-13] MEDS: Spironolactone 25mg tab GT SCH (08:39)
[2017-03-13] MEDS: Amiodarone 200mg tab GT SCH (08:40)
[2017-03-13] MEDS: Furosemide 40mg tab PEG SCH (08:40)
[2017-03-13] MEDS: Carvedilol 6.25mg Tab GT SCH ×2 (08:41→20:54)
[2017-03-13] MEDS: Acetaminophen 650mg/20.3ml NG PRN (08:41)
[2017-03-13] MEDS: Lisinopril 10mg tab GT SCH (08:41)
--- NOTE | 2017-03-13 10:35 | Pulmonology Progress Note ---
Assessment/Plan Problems: (1) Respiratory distress (2) Chronic respiratory acidosis (3) Feeding by G-tube (4) CHF (congestive heart failure) (5) Pneumonia (6) EF of 30% Assessment/Plan cxr bnp in am watch wbc continue vent b echo result noted, EF of 30 optimize cardiac meds f/u cultures continue antibiotics tolerating feeding f/u GI f/u liver enzymes wbc decreasing slowly Subjective ROS Limited/Unobtainable: Yes Allergies: Coded Allergies: No Known Allergies (Unverified , 03/07/17) Objective Last 24 Hour Vital Signs Date Time Temp Pulse Resp B/P Pulse Ox O2 Delivery O2 Flow Rate FiO2 03/13/17 09:20 99.0 03/13/17 09:00 75 23 40 03/13/17 08:41 100/58 03/13/17 08:41 92 100/58 03/13/17 08:00 99.1 92 25 100/58 99 Mechanical Ventilator 40 03/13/17 08:00 93 03/13/17 08:00 40 03/13/17 07:31 77 25 40 03/13/17 04:53 79 19 40 03/13/17 04:30 98.2 92 21 100/64 94 Mechanical Ventilator 40 03/13/17 04:00 40 03/13/17 03:36 83 03/13/17 02:58 83 20 40 03/13/17 00:38 83 22 40 03/13/17 00:00 98.6 84 21 99/56 100 Mechanical Ventilator 40 03/13/17 00:00 81 03/13/17 00:00 40 03/12/17 22:56 81 20 40 03/12/17 21:04 80 108/60 03/12/17 20:43 76 21 40 03/12/17 20:00 40 03/12/17 20:00 80 03/12/17 20:00 97.7 80 22 105/63 100 Mechanical Ventilator 40 03/12/17 18:57 79 18 40 03/12/17 16:57 88 20 40 03/12/17 16:00 40 03/12/17 16:00 79 03/12/17 16:00 99.0 81 18 86/57 99 Mechanical Ventilator 40 03/12/17 15:00 84 20 40 03/12/17 12:53 83 20 40 03/12/17 12:00 100.8 83 23 89/52 99 Mechanical Ventilator 40 03/12/17 12:00 84 03/12/17 12:00 40 03/12/17 11:08 80 22 40 Intake and Output 03/12/17 03/13/17 19:00 07:00 Intake Total 1117.500 ml 1025.0 ml Output Total 1200 ml 600 ml Balance -82.500 ml 425.0 ml Intake Free Water 200 ml IV Total 467.500 ml 225.0 ml Tube Feeding 650 ml 600 ml Output Urine Total 1200 ml 600 ml # Bowel Movements 2 1 Objective General Appearance: WD/WN HEENT: normocephalic, atraumatic, trach in place Respiratory/Chest: chest wall non-tender, lungs rhonchi Cardiovascular: normal peripheral pulses, normal rate, regular rhythm Abdomen: normal bowel sounds, soft, non tender, no organomegaly, Gtube, sherrill in place Extremities: no cyanosis, no clubbing Skin: no rash, no lesions Microbiology Date/Time Source Procedure Growth Status 03/11/17 05:00 Sputum Gram Stain - Final Resulted 03/11/17 05:00 Sputum Culture - Preliminary Pseudomonas Aeruginosa Gram Negative Bacillus 2 Resulted Laboratory Tests 03/13/17 03:45: White Blood Count 13.2H, Red Blood Count 3.57L, Hemoglobin 8.4L, Hematocrit 28.0L, Mean Corpuscular Volume 78L, Mean Corpuscular Hemoglobin 23.7L, Mean Corpuscular Hemoglobin Concent 30.1L, Red Cell Distribution Width 19.9H, Platelet Count 778H, Mean Platelet Volume 5.3L, Neutrophils (%) (Auto) 80.7H, Lymphocytes (%) (Auto) 9.9L, Monocytes (%) (Auto) 6.5, Eosinophils (%) (Auto) 2.6, Basophils (%) (Auto) 0.3, Sodium Level 140, Potassium Level 3.8, Chloride Level 101, Carbon Dioxide Level 28, Anion Gap 11, Blood Urea Nitrogen 21, Creatinine 0.5L, Estimat Glomerular Filtration Rate > 60, Glucose Level 151H, Calcium Level 9.0, Total Bilirubin 0.2, Aspartate Amino Transf (AST/SGOT) 135H, Alanine Aminotransferase (ALT/SGPT) 239H, Alkaline Phosphatase 141H, Total Protein 7.5, Albumin 2.5L, Globulin 5.0, Albumin/Globulin Ratio 0.5L Current Medications Medications (Trade) Dose Ordered Sig/Tameka Route PRN Reason Start Time Stop Time Status Last Admin Dose Admin Acetaminophen (Tylenol) 650 mg Q4H PRN NG Prn Headache/Temp > 101 03/10/17 00:15 04/09/17 00:14 03/13/17 08:41 Acetaminophen/ Hydrocodone Bitart ([place] 5/325) 1 tab Q4H PRN ORAL Moderate Pain (Pain Scale 4-6) 03/10/17 01:30 03/17/17 01:29 Albuterol/ Ipratropium (DuoNeb 0.5-3(2.5)mg/3ml) 3 ml EVERY 4 HOURS PRN HHN Shortness of Breath 03/10/17 01:00 03/15/17 00:59 Amiodarone HCl (Cordarone) 200 mg DAILY GT 03/10/17 09:00 04/09/17 08:59 03/13/17 08:40 Carvedilol (Coreg) 6.25 mg Q12HR GT 03/10/17 09:00 04/09/17 08:59 03/13/17 08:41 Dextrose (Dextrose 50%) STAT PRN IV Hypoglycemia 03/10/17 21:30 04/09/17 21:29 Furosemide 40 mg 40 mg DAILY PEG 03/11/17 09:00 04/10/17 08:59 03/13/17 08:40 Iron Sucrose/ Sodium Chloride (Venofer/Sodium Chloride) 60 ml @ 240 mls/hr BEDTIME IVPB 03/11/17 21:00 03/13/17 21:14 03/12/17 21:05 Lansoprazole (Prevacid) 30 mg DAILY GT 03/13/17 09:00 04/12/17 08:59 03/13/17 08:39 Levetiracetam (Keppra) 500 mg Q12HR GT 03/10/17 09:00 04/09/17 08:59 03/13/17 08:39 Lisinopril (Zestril) 10 mg DAILY GT 03/10/17 09:00 04/09/17 08:59 03/11/17 09:51 Lorazepam (Ativan 2mg/ml 1ml) 2 mg EVERY 2 HOURS PRN IV For Anxiety 03/10/17 00:00 03/17/17 00:00 Morphine Sulfate (Morphine Sulfate) 4 mg EVERY 4 HOURS PRN IVP Severe Pain (Pain Scale 7-10) 03/10/17 01:00 03/17/17 00:59 Ondansetron HCl (Zofran) 4 mg Q6H PRN IVP Nausea & Vomiting 03/10/17 03:30 04/09/17 03:29 Piperacillin Sod/ Tazobactam Sod 4.5 gm/Dextrose 110 ml @ 27.5 mls/hr EVERY 8 HOURS IVPB 03/10/17 06:00 03/17/17 05:59 03/13/17 05:33 Polyethylene Glycol (Miralax) 17 gm DAILYPRN PRN ORAL Constipation 03/10/17 21:30 04/09/17 21:29 Spironolactone (Aldactone) 25 mg DAILY GT 03/11/17 09:00 04/10/17 08:59 03/13/17 08:39 Vancomycin HCl (Vanco rx to dose) 1 ea DAILY PRN MISC per Rx protocol 03/10/17 09:00 04/09/17 08:59 Vancomycin HCl/ Dextrose (Vancomycin/D5W) 275 ml @ 183.708 mls/hr Q12HR@0100,1300 IVPB 03/10/17 01:00 03/15/17 00:59 03/13/17 01:58 Zinc Sulfate (Zinc Sulfate) 220 mg DAILY ORAL 03/10/17 09:00 04/09/17 08:59 03/13/17 08:39 ODETTE SMILEY Mar 13, 2017 10:35
--- NOTE | 2017-03-13 10:42 | Cardiac Electrophysiology PN ---
Assessment/Plan Assessment/Plan 1. Congestive heart failure with EF 30% and BNP of more than 3000. Continue Coreg 6.25 mg twice a day, Zestril 10, Lasix 40 and Aldactone 25 mg daily. Euvolemic now. 2. Paroxysmal Atrial fibrillation. In sinus rhythm on Coreg, amiodarone, and Coumadin per pharmacy. 3. Status post pulseless electrical activity during transesophageal echocardiogram with no clear etiology at [facility]. Ruled out for myocardial infarction as well as pulmonary embolus. 4. S/P SJ ICD. Interrogation showed normal function. Pacer/ICD will not pace if intrinsic heart rate more than 60. 5. VDRF Status post tracheostomy 6. Dysphagia, status post percutaneous endoscopic gastrostomy placement. 7. Anoxic encephalopathy. 8. Pneumonia, on broad-spectrum intravenous antibiotics DW RN . Subjective Subjective On vent via tracheostomy.Nonverbal.Only opens eyes with no purposeful movements. No arrhythmias on tele. Objective Last 24 Hour Vital Signs Date Time Temp Pulse Resp B/P Pulse Ox O2 Delivery O2 Flow Rate FiO2 03/13/17 09:20 99.0 03/13/17 09:00 75 23 40 03/13/17 08:41 100/58 03/13/17 08:41 92 100/58 03/13/17 08:00 99.1 92 25 100/58 99 Mechanical Ventilator 40 03/13/17 08:00 93 03/13/17 08:00 40 03/13/17 07:31 77 25 40 03/13/17 04:53 79 19 40 03/13/17 04:30 98.2 92 21 100/64 94 Mechanical Ventilator 40 03/13/17 04:00 40 03/13/17 03:36 83 03/13/17 02:58 83 20 40 03/13/17 00:38 83 22 40 03/13/17 00:00 98.6 84 21 99/56 100 Mechanical Ventilator 40 03/13/17 00:00 81 03/13/17 00:00 40 03/12/17 22:56 81 20 40 03/12/17 21:04 80 108/60 03/12/17 20:43 76 21 40 03/12/17 20:00 40 03/12/17 20:00 80 03/12/17 20:00 97.7 80 22 105/63 100 Mechanical Ventilator 40 03/12/17 18:57 79 18 40 03/12/17 16:57 88 20 40 03/12/17 16:00 40 03/12/17 16:00 79 03/12/17 16:00 99.0 81 18 86/57 99 Mechanical Ventilator 40 03/12/17 15:00 84 20 40 03/12/17 12:53 83 20 40 03/12/17 12:00 100.8 83 23 89/52 99 Mechanical Ventilator 40 03/12/17 12:00 84 03/12/17 12:00 40 03/12/17 11:08 80 22 40 Intake and Output 03/12/17 03/13/17 19:00 07:00 Intake Total 1117.500 ml 1025.0 ml Output Total 1200 ml 600 ml Balance -82.500 ml 425.0 ml Intake Free Water 200 ml IV Total 467.500 ml 225.0 ml Tube Feeding 650 ml 600 ml Output Urine Total 1200 ml 600 ml # Bowel Movements 2 1 Laboratory Tests Test 03/13/17 03:45 White Blood Count 13.2 K/UL (4.8-10.8) H Red Blood Count 3.57 M/UL (4.70-6.10) L Hemoglobin 8.4 G/DL (14.2-18.0) L Hematocrit 28.0 % (42.0-52.0) L Mean Corpuscular Volume 78 FL (80-99) L Mean Corpuscular Hemoglobin 23.7 PG (27.0-31.0) L Mean Corpuscular Hemoglobin Concent 30.1 G/DL (32.0-36.0) L Red Cell Distribution Width 19.9 % (11.6-14.8) H Platelet Count 778 K/UL (150-450) H Mean Platelet Volume 5.3 FL (6.5-10.1) L Neutrophils (%) (Auto) 80.7 % (45.0-75.0) H Lymphocytes (%) (Auto) 9.9 % (20.0-45.0) L Monocytes (%) (Auto) 6.5 % (1.0-10.0) Eosinophils (%) (Auto) 2.6 % (0.0-3.0) Basophils (%) (Auto) 0.3 % (0.0-2.0) Sodium Level 140 mEQ/L (135-145) Potassium Level 3.8 mEQ/L (3.4-4.9) Chloride Level 101 mEQ/L (98-107) Carbon Dioxide Level 28 mEQ/L (20-30) Anion Gap 11 (5-15) Blood Urea Nitrogen 21 mg/dL (7-23) Creatinine 0.5 mg/dL (0.7-1.2) L Estimat Glomerular Filtration Rate > 60 mL/min (>60) Glucose Level 151 mg/dL (74-106) H Calcium Level 9.0 mg/dL (8.6-10.2) Total Bilirubin 0.2 mg/dL (0.0-1.2) Aspartate Amino Transf (AST/SGOT) 135 U/L (5-40) H Alanine Aminotransferase (ALT/SGPT) 239 U/L (3-41) H Alkaline Phosphatase 141 U/L (40-129) H Total Protein 7.5 g/dL (6.6-8.7) Albumin 2.5 g/dL (3.5-5.2) L Globulin 5.0 g/dL Albumin/Globulin Ratio 0.5 (1.0-2.7) L Current Medications Medications (Trade) Dose Ordered Sig/Tameka Route PRN Reason Start Time Stop Time Status Last Admin Dose Admin Acetaminophen (Tylenol) 650 mg Q4H PRN NG Prn Headache/Temp > 101 03/10/17 00:15 04/09/17 00:14 03/13/17 08:41 Acetaminophen/ Hydrocodone Bitart ([place] 5/325) 1 tab Q4H PRN ORAL Moderate Pain (Pain Scale 4-6) 03/10/17 01:30 03/17/17 01:29 Albuterol/ Ipratropium (DuoNeb 0.5-3(2.5)mg/3ml) 3 ml EVERY 4 HOURS PRN HHN Shortness of Breath 03/10/17 01:00 03/15/17 00:59 Amiodarone HCl (Cordarone) 200 mg DAILY GT 03/10/17 09:00 04/09/17 08:59 03/13/17 08:40 Carvedilol (Coreg) 6.25 mg Q12HR GT 03/10/17 09:00 04/09/17 08:59 03/13/17 08:41 Dextrose (Dextrose 50%) STAT PRN IV Hypoglycemia 03/10/17 21:30 04/09/17 21:29 Furosemide 40 mg 40 mg DAILY PEG 03/11/17 09:00 04/10/17 08:59 03/13/17 08:40 Iron Sucrose/ Sodium Chloride (Venofer/Sodium Chloride) 60 ml @ 240 mls/hr BEDTIME IVPB 03/11/17 21:00 03/13/17 21:14 03/12/17 21:05 Lansoprazole (Prevacid) 30 mg DAILY GT 03/13/17 09:00 04/12/17 08:59 03/13/17 08:39 Levetiracetam (Keppra) 500 mg Q12HR GT 03/10/17 09:00 04/09/17 08:59 03/13/17 08:39 Lisinopril (Zestril) 10 mg DAILY GT 03/10/17 09:00 04/09/17 08:59 03/11/17 09:51 Lorazepam (Ativan 2mg/ml 1ml) 2 mg EVERY 2 HOURS PRN IV For Anxiety 03/10/17 00:00 03/17/17 00:00 Morphine Sulfate (Morphine Sulfate) 4 mg EVERY 4 HOURS PRN IVP Severe Pain (Pain Scale 7-10) 03/10/17 01:00 03/17/17 00:59 Ondansetron HCl (Zofran) 4 mg Q6H PRN IVP Nausea & Vomiting 03/10/17 03:30 04/09/17 03:29 Piperacillin Sod/ Tazobactam Sod 4.5 gm/Dextrose 110 ml @ 27.5 mls/hr EVERY 8 HOURS IVPB 03/10/17 06:00 03/17/17 05:59 03/13/17 05:33 Polyethylene Glycol (Miralax) 17 gm DAILYPRN PRN ORAL Constipation 03/10/17 21:30 04/09/17 21:29 Spironolactone (Aldactone) 25 mg DAILY GT 03/11/17 09:00 04/10/17 08:59 03/13/17 08:39 Vancomycin HCl (Vanco rx to dose) 1 ea DAILY PRN MISC per Rx protocol 03/10/17 09:00 04/09/17 08:59 Vancomycin HCl/ Dextrose (Vancomycin/D5W) 275 ml @ 183.708 mls/hr Q12HR@0100,1300 IVPB 03/10/17 01:00 03/15/17 00:59 03/13/17 01:58 Zinc Sulfate (Zinc Sulfate) 220 mg DAILY ORAL 03/10/17 09:00 04/09/17 08:59 03/13/17 08:39 Microbiology Date/Time Source Procedure Growth Status 03/11/17 05:00 Sputum Gram Stain - Final Resulted 03/11/17 05:00 Sputum Culture - Preliminary Pseudomonas Aeruginosa Gram Negative Bacillus 2 Resulted Objective HEAD AND NECK: Shows no JVD. Status post tracheostomy CARDIOVASCULAR: Shows regular S1 and S2. No gallop. The defibrillator is in left subclavian. ABDOMEN: Soft. There is a G-tube. EXTREMITIES: No pitting edema. DAMIR POOL Mar 13, 2017 10:42
--- NOTE | 2017-03-13 11:02 | Infectious Diseases Prog Note ---
Assessment/Plan Assessment/Plan A: 57-year-old male w low grade fever x 1 , SP Pneumonia Scx: GNR + XDR PSA Chest x-ray: infiltrate in the right mid lung Sepsis, SP Leukocytosis mild Fever, SP Transaminitis increased Hep C Ab + Abdominal ultrasound of liver : unremarkable Wound Cx :Colonizer History of cardiac arrest Anoxic encephalopathy Cardiomyopathy SP defibrillator placement Status post G-tube and tracheostomy Paroxysmal atrial fibrillation Hypertension P: Change vancomycin and Zosyn d# 5 to [place] and [place] INH d# / Monitor Cx ( sputum culture and Blood ) Monitor CBC Monitor CMP Monitor Cxray cont vent support Subjective Allergies: Coded Allergies: No Known Allergies (Unverified , 03/07/17) Subjective SP low grade fever Objective Vital Signs Last 24 Hour Vital Signs Date Time Temp Pulse Resp B/P Pulse Ox O2 Delivery O2 Flow Rate FiO2 03/13/17 09:20 99.0 03/13/17 09:00 75 23 40 03/13/17 08:41 100/58 03/13/17 08:41 92 100/58 03/13/17 08:00 99.1 92 25 100/58 99 Mechanical Ventilator 40 03/13/17 08:00 93 03/13/17 08:00 40 03/13/17 07:31 77 25 40 03/13/17 04:53 79 19 40 03/13/17 04:30 98.2 92 21 100/64 94 Mechanical Ventilator 40 03/13/17 04:00 40 03/13/17 03:36 83 03/13/17 02:58 83 20 40 03/13/17 00:38 83 22 40 03/13/17 00:00 98.6 84 21 99/56 100 Mechanical Ventilator 40 03/13/17 00:00 81 03/13/17 00:00 40 03/12/17 22:56 81 20 40 03/12/17 21:04 80 108/60 03/12/17 20:43 76 21 40 03/12/17 20:00 40 03/12/17 20:00 80 03/12/17 20:00 97.7 80 22 105/63 100 Mechanical Ventilator 40 03/12/17 18:57 79 18 40 03/12/17 16:57 88 20 40 03/12/17 16:00 40 03/12/17 16:00 79 03/12/17 16:00 99.0 81 18 86/57 99 Mechanical Ventilator 40 03/12/17 15:00 84 20 40 03/12/17 12:53 83 20 40 03/12/17 12:00 100.8 83 23 89/52 99 Mechanical Ventilator 40 03/12/17 12:00 84 03/12/17 12:00 40 03/12/17 11:08 80 22 40 Height (Feet): 6 Height (Inches): 0.00 Weight (Pounds): 150 HEENT: anicteric Respiratory/Chest: normal breath sounds Cardiovascular: regular rhythm Abdomen: non distended Microbiology Date/Time Source Procedure Growth Status 03/11/17 05:00 Sputum Gram Stain - Final Resulted 03/11/17 05:00 Sputum Culture - Preliminary Pseudomonas Aeruginosa Gram Negative Bacillus 2 Resulted Laboratory Tests Test 03/13/17 03:45 White Blood Count 13.2 K/UL (4.8-10.8) H Red Blood Count 3.57 M/UL (4.70-6.10) L Hemoglobin 8.4 G/DL (14.2-18.0) L Hematocrit 28.0 % (42.0-52.0) L Mean Corpuscular Volume 78 FL (80-99) L Mean Corpuscular Hemoglobin 23.7 PG (27.0-31.0) L Mean Corpuscular Hemoglobin Concent 30.1 G/DL (32.0-36.0) L Red Cell Distribution Width 19.9 % (11.6-14.8) H Platelet Count 778 K/UL (150-450) H Mean Platelet Volume 5.3 FL (6.5-10.1) L Neutrophils (%) (Auto) 80.7 % (45.0-75.0) H Lymphocytes (%) (Auto) 9.9 % (20.0-45.0) L Monocytes (%) (Auto) 6.5 % (1.0-10.0) Eosinophils (%) (Auto) 2.6 % (0.0-3.0) Basophils (%) (Auto) 0.3 % (0.0-2.0) Sodium Level 140 mEQ/L (135-145) Potassium Level 3.8 mEQ/L (3.4-4.9) Chloride Level 101 mEQ/L (98-107) Carbon Dioxide Level 28 mEQ/L (20-30) Anion Gap 11 (5-15) Blood Urea Nitrogen 21 mg/dL (7-23) Creatinine 0.5 mg/dL (0.7-1.2) L Estimat Glomerular Filtration Rate > 60 mL/min (>60) Glucose Level 151 mg/dL (74-106) H Calcium Level 9.0 mg/dL (8.6-10.2) Total Bilirubin 0.2 mg/dL (0.0-1.2) Aspartate Amino Transf (AST/SGOT) 135 U/L (5-40) H Alanine Aminotransferase (ALT/SGPT) 239 U/L (3-41) H Alkaline Phosphatase 141 U/L (40-129) H Total Protein 7.5 g/dL (6.6-8.7) Albumin 2.5 g/dL (3.5-5.2) L Globulin 5.0 g/dL Albumin/Globulin Ratio 0.5 (1.0-2.7) L Current Medications Medications (Trade) Dose Ordered Sig/[place] Route PRN Reason Start Time Stop Time Status Last Admin Dose Admin Acetaminophen (Tylenol) 650 mg Q4H PRN NG Prn Headache/Temp > 101 03/10/17 00:15 04/09/17 00:14 03/13/17 08:41 Acetaminophen/ Hydrocodone Bitart ([place] 5/325) 1 tab Q4H PRN ORAL Moderate Pain (Pain Scale 4-6) 03/10/17 01:30 03/17/17 01:29 Albuterol/ Ipratropium (DuoNeb 0.5-3(2.5)mg/3ml) 3 ml EVERY 4 HOURS PRN HHN Shortness of Breath 03/10/17 01:00 03/15/17 00:59 Amiodarone HCl (Cordarone) 200 mg DAILY GT 03/10/17 09:00 04/09/17 08:59 03/13/17 08:40 Carvedilol (Coreg) 6.25 mg Q12HR GT 03/10/17 09:00 04/09/17 08:59 03/13/17 08:41 Dextrose (Dextrose 50%) STAT PRN IV Hypoglycemia 03/10/17 21:30 04/09/17 21:29 Furosemide 40 mg 40 mg DAILY PEG 03/11/17 09:00 04/10/17 08:59 03/13/17 08:40 Iron Sucrose/ Sodium Chloride (Venofer/Sodium Chloride) 60 ml @ 240 mls/hr BEDTIME IVPB 03/11/17 21:00 03/13/17 21:14 03/12/17 21:05 Lansoprazole (Prevacid) 30 mg DAILY GT 03/13/17 09:00 04/12/17 08:59 03/13/17 08:39 Levetiracetam (Keppra) 500 mg Q12HR GT 03/10/17 09:00 04/09/17 08:59 03/13/17 08:39 Lisinopril (Zestril) 10 mg DAILY GT 03/10/17 09:00 04/09/17 08:59 03/11/17 09:51 Lorazepam (Ativan 2mg/ml 1ml) 2 mg EVERY 2 HOURS PRN IV For Anxiety 03/10/17 00:00 03/17/17 00:00 Morphine Sulfate (Morphine Sulfate) 4 mg EVERY 4 HOURS PRN IVP Severe Pain (Pain Scale 7-10) 03/10/17 01:00 03/17/17 00:59 Ondansetron HCl (Zofran) 4 mg Q6H PRN IVP Nausea & Vomiting 03/10/17 03:30 04/09/17 03:29 Piperacillin Sod/ Tazobactam Sod 4.5 gm/Dextrose 110 ml @ 27.5 mls/hr EVERY 8 HOURS IVPB 03/10/17 06:00 03/17/17 05:59 03/13/17 05:33 Polyethylene Glycol (Miralax) 17 gm DAILYPRN PRN ORAL Constipation 03/10/17 21:30 04/09/17 21:29 Spironolactone (Aldactone) 25 mg DAILY GT 03/11/17 09:00 04/10/17 08:59 03/13/17 08:39 Vancomycin HCl (Vanco rx to dose) 1 ea DAILY PRN MISC per Rx protocol 03/10/17 09:00 04/09/17 08:59 Vancomycin HCl/ Dextrose (Vancomycin/D5W) 275 ml @ 183.708 mls/hr Q12HR@0100,1300 IVPB 03/10/17 01:00 03/15/17 00:59 03/13/17 01:58 Zinc Sulfate (Zinc Sulfate) 220 mg DAILY ORAL 03/10/17 09:00 04/09/17 08:59 03/13/17 08:39 MARCUS PA M.D. Mar 13, 2017 11:02
--- NOTE | 2017-03-13 11:03 | GI Progress Note ---
Assessment/Plan Problems: (1) Anemia ICD Codes: D64.9 - Anemia, unspecified SNOMED: 765888065 (2) Feeding by G-tube ICD Codes: Z93.1 - Gastrostomy status SNOMED: 318881232, 512873432 (3) Leukocytosis ICD Codes: D72.829 - Elevated white blood cell count, unspecified SNOMED: 501438094, 483067960 (4) Transaminitis ICD Codes: R74.0 - Nonspecific elevation of levels of transaminase and lactic acid dehydrogenase [LDH] SNOMED: 584330713 Status: unchanged Status Narrative Discussed with Dr. Alex. Assessment/Plan iron deficient >> venofer elevated CEA >> 7.4 AFP >> WNL abd U/S reviewed >> unremarkable Hep C positive OB negative monitor H&H, transfuse prn GTFs per dietary monitor LFTs ppi fu labs Subjective Subjective limited Objective Last 24 Hour Vital Signs Date Time Temp Pulse Resp B/P Pulse Ox O2 Delivery O2 Flow Rate FiO2 03/13/17 09:20 99.0 03/13/17 09:00 75 23 40 03/13/17 08:41 100/58 03/13/17 08:41 92 100/58 03/13/17 08:00 99.1 92 25 100/58 99 Mechanical Ventilator 40 03/13/17 08:00 93 03/13/17 08:00 40 03/13/17 07:31 77 25 40 03/13/17 04:53 79 19 40 03/13/17 04:30 98.2 92 21 100/64 94 Mechanical Ventilator 40 03/13/17 04:00 40 03/13/17 03:36 83 03/13/17 02:58 83 20 40 03/13/17 00:38 83 22 40 03/13/17 00:00 98.6 84 21 99/56 100 Mechanical Ventilator 40 03/13/17 00:00 81 03/13/17 00:00 40 03/12/17 22:56 81 20 40 03/12/17 21:04 80 108/60 03/12/17 20:43 76 21 40 03/12/17 20:00 40 03/12/17 20:00 80 03/12/17 20:00 97.7 80 22 105/63 100 Mechanical Ventilator 40 03/12/17 18:57 79 18 40 03/12/17 16:57 88 20 40 03/12/17 16:00 40 03/12/17 16:00 79 03/12/17 16:00 99.0 81 18 86/57 99 Mechanical Ventilator 40 03/12/17 15:00 84 20 40 03/12/17 12:53 83 20 40 03/12/17 12:00 100.8 83 23 89/52 99 Mechanical Ventilator 40 03/12/17 12:00 84 03/12/17 12:00 40 03/12/17 11:08 80 22 40 Intake and Output 03/12/17 03/13/17 19:00 07:00 Intake Total 1117.500 ml 1025.0 ml Output Total 1200 ml 600 ml Balance -82.500 ml 425.0 ml Intake Free Water 200 ml IV Total 467.500 ml 225.0 ml Tube Feeding 650 ml 600 ml Output Urine Total 1200 ml 600 ml # Bowel Movements 2 1 Laboratory Tests Test 03/13/17 03:45 White Blood Count 13.2 K/UL (4.8-10.8) H Red Blood Count 3.57 M/UL (4.70-6.10) L Hemoglobin 8.4 G/DL (14.2-18.0) L Hematocrit 28.0 % (42.0-52.0) L Mean Corpuscular Volume 78 FL (80-99) L Mean Corpuscular Hemoglobin 23.7 PG (27.0-31.0) L Mean Corpuscular Hemoglobin Concent 30.1 G/DL (32.0-36.0) L Red Cell Distribution Width 19.9 % (11.6-14.8) H Platelet Count 778 K/UL (150-450) H Mean Platelet Volume 5.3 FL (6.5-10.1) L Neutrophils (%) (Auto) 80.7 % (45.0-75.0) H Lymphocytes (%) (Auto) 9.9 % (20.0-45.0) L Monocytes (%) (Auto) 6.5 % (1.0-10.0) Eosinophils (%) (Auto) 2.6 % (0.0-3.0) Basophils (%) (Auto) 0.3 % (0.0-2.0) Sodium Level 140 mEQ/L (135-145) Potassium Level 3.8 mEQ/L (3.4-4.9) Chloride Level 101 mEQ/L (98-107) Carbon Dioxide Level 28 mEQ/L (20-30) Anion Gap 11 (5-15) Blood Urea Nitrogen 21 mg/dL (7-23) Creatinine 0.5 mg/dL (0.7-1.2) L Estimat Glomerular Filtration Rate > 60 mL/min (>60) Glucose Level 151 mg/dL (74-106) H Calcium Level 9.0 mg/dL (8.6-10.2) Total Bilirubin 0.2 mg/dL (0.0-1.2) Aspartate Amino Transf (AST/SGOT) 135 U/L (5-40) H Alanine Aminotransferase (ALT/SGPT) 239 U/L (3-41) H Alkaline Phosphatase 141 U/L (40-129) H Total Protein 7.5 g/dL (6.6-8.7) Albumin 2.5 g/dL (3.5-5.2) L Globulin 5.0 g/dL Albumin/Globulin Ratio 0.5 (1.0-2.7) L Height (Feet): 6 Height (Inches): 0.00 Weight (Pounds): 150 General Appearance: no apparent distress, alert Cardiovascular: normal rate Respiratory/Chest: no respiratory distress, other - mech vent Abdominal Exam: normal bowel sounds, GT site - c/d/i Lani Last N.P. Mar 13, 2017 11:03
[2017-03-13 12:00] VITALS: BP 95/59
[2017-03-13] MEDS: Meropenem 2 GM in NS 110 ML IVPB SCH ×2 (13:30→22:08)
[2017-03-13] MEDS: Colistin for inhalation INH SCH ×2 (15:01→21:00)
[2017-03-13 16:00] VITALS: BP 90/59
[2017-03-13 20:00] VITALS: BP 100/65
[2017-03-13] MEDS: Iron Sucrose 100 MG in NS 55 ML IVPB SCH (21:25)
[2017-03-14] VITALS (7 sets, daily range): BP systolic 91–98; BP diastolic 38–62
[2017-03-14] MEDS: Meropenem 2 GM in NS 110 ML IVPB SCH ×3 (05:52→22:47)
[2017-03-14 06:53] LABS: BASOPHILS % (AUTO) 0.6 % (0.0-2.0); LYMPHOCYTES % (AUTO) 11.4 % (20.0-45.0); MEAN CORPUSCULAR HEMOGLOBIN 23.6 PG (27.0-31.0); MEAN CORPUSCULAR HGB CONC 29.8 G/DL (32.0-36.0); MEAN CORPUSCULAR VOLUME 79 FL (80-99); MEAN PLATELET VOLUME 5.3 FL (6.5-10.1); MONOCYTES % (AUTO) 6.1 % (1.0-10.0); NEUTROPHILS % (AUTO) 79.9 % (45.0-75.0); PLATELET COUNT 778 K/UL (150-450); RED BLOOD COUNT 3.64 M/UL (4.70-6.10); RED CELL DISTRIBUTION WIDTH 20.5 % (11.6-14.8); WHITE BLOOD COUNT 14.4 K/UL (4.8-10.8)
[2017-03-14 07:06] LABS: ALANINE AMINOTRANSFERASE 266 U/L (3-41); ALBUMIN/GLOBULIN RATIO 0.4 (1.0-2.7); ANION GAP 14 (5-15); ASPARTATE AMINO TRANSFERASE 222 U/L (5-40); CALCIUM 8.9 mg/dL (8.6-10.2); CARBON DIOXIDE 26 mEQ/L (20-30); CHLORIDE 101 mEQ/L (98-107); CREATININE 0.5 mg/dL (0.7-1.2); GLOMERULAR FILTRATION RATE > 60 mL/min (>60); HEMOLYSIS 3; POTASSIUM 4.2 mEQ/L (3.4-4.9); SODIUM 141 mEQ/L (135-145); TOTAL PROTEIN 7.5 g/dL (6.6-8.7)
[2017-03-14] MEDS: Carvedilol 6.25mg Tab GT SCH (09:00)
[2017-03-14] MEDS: Lisinopril 10mg tab GT SCH (09:00)
[2017-03-14] MEDS: Colistin for inhalation INH SCH ×2 (09:49→21:26)
[2017-03-14] MEDS ORDERED: NS 275ml ONE (10:07)
[2017-03-14] MEDS: levETIRAcetam 500mg/5ml Liquid GT SCH ×2 (10:32→20:40)
[2017-03-14] MEDS: Zinc Sulfate 220mg cap ORAL SCH (10:32)
[2017-03-14] MEDS: Furosemide 40mg tab PEG SCH (10:33)
[2017-03-14] MEDS: Spironolactone 25mg tab GT SCH (10:40)
[2017-03-14] MEDS: Amiodarone 200mg tab GT SCH (10:47)
--- NOTE | 2017-03-14 12:10 | GI Progress Note ---
Assessment/Plan Problems: (1) Anemia ICD Codes: D64.9 - Anemia, unspecified SNOMED: 092250267 (2) Feeding by G-tube ICD Codes: Z93.1 - Gastrostomy status SNOMED: 511291121, 063387966 (3) Leukocytosis ICD Codes: D72.829 - Elevated white blood cell count, unspecified SNOMED: 822473030, 172392282 (4) Transaminitis ICD Codes: R74.0 - Nonspecific elevation of levels of transaminase and lactic acid dehydrogenase [LDH] SNOMED: 024539729 Status: unchanged Status Narrative Discussed with Dr. Alex. Assessment/Plan iron deficient >> venofer elevated CEA >> 7.4 AFP >> WNL abd U/S reviewed >> unremarkable Hep C positive OB negative monitor H&H, transfuse prn GTFs per dietary monitor LFTs ppi fu labs Subjective Subjective limited Objective Last 24 Hour Vital Signs Date Time Temp Pulse Resp B/P Pulse Ox O2 Delivery O2 Flow Rate FiO2 03/14/17 12:00 97.9 92 27 98/61 99 Mechanical Ventilator 40 03/14/17 10:36 92 22 40 03/14/17 10:00 89 20 99 Mechanical Ventilator 40 03/14/17 09:49 90 20 99 Mechanical Ventilator 40 03/14/17 09:00 98/60 03/14/17 09:00 89 98/60 03/14/17 08:42 90 20 40 03/14/17 08:00 98.8 89 21 98/60 99 Mechanical Ventilator 40 03/14/17 06:32 81 19 40 03/14/17 05:05 82 20 40 03/14/17 04:00 98.2 81 15 92/61 100 Nasal Cannula 03/14/17 04:00 40 03/14/17 03:54 80 03/14/17 03:15 83 21 40 03/14/17 01:15 83 22 40 03/14/17 00:00 98.4 84 16 91/38 99 Mechanical Ventilator 40 03/14/17 00:00 40 03/14/17 00:00 98.4 84 16 91/58 99 Nasal Cannula 03/13/17 23:25 81 03/13/17 22:55 80 21 40 03/13/17 21:08 88 22 100 Mechanical Ventilator 40 03/13/17 21:00 85 22 100 Mechanical Ventilator 40 03/13/17 20:59 85 22 40 03/13/17 20:54 85 100/65 03/13/17 20:00 78 03/13/17 20:00 97.9 85 18 100/65 99 Mechanical Ventilator 40 03/13/17 20:00 40 03/13/17 18:50 82 24 40 03/13/17 17:29 79 24 40 03/13/17 16:00 84 03/13/17 16:00 98.5 82 16 90/59 99 Mechanical Ventilator 45 03/13/17 16:00 40 03/13/17 15:16 78 25 40 03/13/17 15:13 77 23 97 Mechanical Ventilator 40 03/13/17 15:03 90 25 97 Mechanical Ventilator 40 03/13/17 14:00 84 03/13/17 13:02 81 25 40 Intake and Output 03/13/17 03/14/17 19:00 07:00 Intake Total 765.0 ml 870 ml Output Total 725 ml 650 ml Balance 40.0 ml 220 ml Intake Free Water 100 ml 100 ml IV Total 165.0 ml 170 ml Tube Feeding 500 ml 600 ml Output Urine Total 725 ml 650 ml Laboratory Tests Test 03/14/17 05:46 White Blood Count 14.4 K/UL (4.8-10.8) H Red Blood Count 3.64 M/UL (4.70-6.10) L Hemoglobin 8.6 G/DL (14.2-18.0) L Hematocrit 28.8 % (42.0-52.0) L Mean Corpuscular Volume 79 FL (80-99) L Mean Corpuscular Hemoglobin 23.6 PG (27.0-31.0) L Mean Corpuscular Hemoglobin Concent 29.8 G/DL (32.0-36.0) L Red Cell Distribution Width 20.5 % (11.6-14.8) H Platelet Count 778 K/UL (150-450) H Mean Platelet Volume 5.3 FL (6.5-10.1) L Neutrophils (%) (Auto) 79.9 % (45.0-75.0) H Lymphocytes (%) (Auto) 11.4 % (20.0-45.0) L Monocytes (%) (Auto) 6.1 % (1.0-10.0) Eosinophils (%) (Auto) 2.0 % (0.0-3.0) Basophils (%) (Auto) 0.6 % (0.0-2.0) Sodium Level 141 mEQ/L (135-145) Potassium Level 4.2 mEQ/L (3.4-4.9) Chloride Level 101 mEQ/L (98-107) Carbon Dioxide Level 26 mEQ/L (20-30) Anion Gap 14 (5-15) Blood Urea Nitrogen 20 mg/dL (7-23) Creatinine 0.5 mg/dL (0.7-1.2) L Estimat Glomerular Filtration Rate > 60 mL/min (>60) Glucose Level 128 mg/dL (74-106) H Calcium Level 8.9 mg/dL (8.6-10.2) Total Bilirubin < 0.2 mg/dL (0.0-1.2) Aspartate Amino Transf (AST/SGOT) 222 U/L (5-40) H Alanine Aminotransferase (ALT/SGPT) 266 U/L (3-41) H Alkaline Phosphatase 150 U/L (40-129) H Pro-B-Type Natriuretic Peptide 1799 pg/mL (0-125) H Total Protein 7.5 g/dL (6.6-8.7) Albumin 2.3 g/dL (3.5-5.2) L Globulin 5.2 g/dL Albumin/Globulin Ratio 0.4 (1.0-2.7) L Height (Feet): 6 Height (Inches): 0.00 Weight (Pounds): 150 General Appearance: no apparent distress, alert Cardiovascular: normal rate [facility]: [facility] Ab[facility]: GT site - c/d/i Lani Last N.P. Mar 14, 2017 12:10
--- NOTE | 2017-03-14 12:30 | Pulmonology Progress Note ---
Assessment/Plan Problems: (1) Respiratory distress (2) Chronic respiratory acidosis (3) Feeding by G-tube (4) CHF (congestive heart failure) (5) Pneumonia (6) EF of 30% Assessment/Plan cxr bnp in am watch wbc continue vent b echo result noted, EF of 30 optimize cardiac meds f/u cultures continue antibiotics tolerating feeding f/u GI f/u liver enzymes wbc decreasing slowly Subjective Allergies: Coded Allergies: No Known Allergies (Unverified , 03/07/17) Objective Last 24 Hour Vital Signs Date Time Temp Pulse Resp B/P Pulse Ox O2 Delivery O2 Flow Rate FiO2 03/14/17 12:00 97.9 92 27 98/61 99 Mechanical Ventilator 40 03/14/17 10:36 92 22 40 03/14/17 10:00 89 20 99 Mechanical Ventilator 40 03/14/17 09:49 90 20 99 Mechanical Ventilator 40 03/14/17 09:00 98/60 03/14/17 09:00 89 98/60 03/14/17 08:42 90 20 40 03/14/17 08:00 98.8 89 21 98/60 99 Mechanical Ventilator 40 03/14/17 06:32 81 19 40 03/14/17 05:05 82 20 40 03/14/17 04:00 98.2 81 15 92/61 100 Nasal Cannula 03/14/17 04:00 40 03/14/17 03:54 80 03/14/17 03:15 83 21 40 03/14/17 01:15 83 22 40 03/14/17 00:00 98.4 84 16 91/38 99 Mechanical Ventilator 40 03/14/17 00:00 40 03/14/17 00:00 98.4 84 16 91/58 99 Nasal Cannula 03/13/17 23:25 81 03/13/17 22:55 80 21 40 03/13/17 21:08 88 22 100 Mechanical Ventilator 40 03/13/17 21:00 85 22 100 Mechanical Ventilator 40 03/13/17 20:59 85 22 40 03/13/17 20:54 85 100/65 03/13/17 20:00 78 03/13/17 20:00 97.9 85 18 100/65 99 Mechanical Ventilator 40 03/13/17 20:00 40 03/13/17 18:50 82 24 40 03/13/17 17:29 79 24 40 03/13/17 16:00 84 03/13/17 16:00 98.5 82 16 90/59 99 Mechanical Ventilator 45 03/13/17 16:00 40 03/13/17 15:16 78 25 40 03/13/17 15:13 77 23 97 Mechanical Ventilator 40 03/13/17 15:03 90 25 97 Mechanical Ventilator 40 03/13/17 14:00 84 03/13/17 13:02 81 25 40 Intake and Output 03/13/17 03/14/17 19:00 07:00 Intake Total 765.0 ml 870 ml Output Total 725 ml 650 ml Balance 40.0 ml 220 ml Intake Free Water 100 ml 100 ml IV Total 165.0 ml 170 ml Tube Feeding 500 ml 600 ml Output Urine Total 725 ml 650 ml Objective General Appearance: WD/WN HEENT: normocephalic, atraumatic, trach in place Respiratory/Chest: chest wall non-tender, lungs rhonchi Cardiovascular: normal peripheral pulses, normal rate, regular rhythm Abdomen: normal bowel sounds, soft, non tender, no organomegaly, Gtube, sherrill in place Extremities: no cyanosis, no clubbing Skin: no rash, no lesions Laboratory Tests 03/14/17 05:46: White Blood Count 14.4H, Red Blood Count 3.64L, Hemoglobin 8.6L, Hematocrit 28.8L, Mean Corpuscular Volume 79L, Mean Corpuscular Hemoglobin 23.6L, Mean Corpuscular Hemoglobin Concent 29.8L, Red Cell Distribution Width 20.5H, Platelet Count 778H, Mean Platelet Volume 5.3L, Neutrophils (%) (Auto) 79.9H, Lymphocytes (%) (Auto) 11.4L, Monocytes (%) (Auto) 6.1, Eosinophils (%) (Auto) 2.0, Basophils (%) (Auto) 0.6, Sodium Level 141, Potassium Level 4.2, Chloride Level 101, Carbon Dioxide Level 26, Anion Gap 14, Blood Urea Nitrogen 20, Creatinine 0.5L, Estimat Glomerular Filtration Rate > 60, Glucose Level 128H, Calcium Level 8.9, Total Bilirubin < 0.2, Aspartate Amino Transf (AST/SGOT) 222H , Alanine Aminotransferase (ALT/SGPT) 266H, Alkaline Phosphatase 150H, Pro-B- Type Natriuretic Peptide 1799H, Total Protein 7.5, Albumin 2.3L, Globulin 5.2, Albumin/Globulin Ratio 0.4L Current Medications Medications (Trade) Dose Ordered Sig/Tameka Route PRN Reason Start Time Stop Time Status Last Admin Dose Admin Acetaminophen (Tylenol) 650 mg Q4H PRN NG Prn Headache/Temp > 101 03/10/17 00:15 04/09/17 00:14 03/13/17 08:41 Acetaminophen/ Hydrocodone Bitart ([place] 5/325) 1 tab Q4H PRN ORAL Moderate Pain (Pain Scale 4-6) 03/10/17 01:30 03/17/17 01:29 Albuterol/ Ipratropium (DuoNeb 0.5-3(2.5)mg/3ml) 3 ml EVERY 4 HOURS PRN HHN Shortness of Breath 03/10/17 01:00 03/15/17 00:59 Amiodarone HCl (Cordarone) 200 mg DAILY GT 03/10/17 09:00 04/09/17 08:59 03/14/17 10:47 Carvedilol (Coreg) 6.25 mg Q12HR GT 03/10/17 09:00 04/09/17 08:59 03/13/17 08:41 Colistimethate Sodium 150 mg 150 mg Q12HR@10,22 INH 03/13/17 12:00 03/20/17 11:59 03/14/17 09:49 Dextrose (Dextrose 50%) STAT PRN IV Hypoglycemia 03/10/17 21:30 04/09/17 21:29 Furosemide (Lasix) 40 mg DAILY PEG 03/11/17 09:00 04/10/17 08:59 03/14/17 10:33 Lansoprazole (Prevacid) 30 mg DAILY GT 03/13/17 09:00 04/12/17 08:59 03/14/17 11:42 Levetiracetam (Keppra) 500 mg Q12HR GT 03/10/17 09:00 04/09/17 08:59 03/14/17 10:32 Lisinopril (Zestril) 10 mg DAILY GT 03/10/17 09:00 04/09/17 08:59 03/11/17 09:51 Lorazepam (Ativan 2mg/ml 1ml) 2 mg EVERY 2 HOURS PRN IV For Anxiety 03/10/17 00:00 03/17/17 00:00 Meropenem/Sodium Chloride (Merrem/Sodium Chloride) 110 ml @ 220 mls/hr Q8HR IVPB 03/13/17 14:00 03/18/17 13:59 03/14/17 05:52 Morphine Sulfate (Morphine Sulfate) 4 mg EVERY 4 HOURS PRN IVP Severe Pain (Pain Scale 7-10) 03/10/17 01:00 03/17/17 00:59 Ondansetron HCl (Zofran) 4 mg Q6H PRN IVP Nausea & Vomiting 03/10/17 03:30 04/09/17 03:29 Polyethylene Glycol (Miralax) 17 gm DAILYPRN PRN ORAL Constipation 03/10/17 21:30 04/09/17 21:29 Spironolactone (Aldactone) 25 mg DAILY GT 03/11/17 09:00 04/10/17 08:59 03/14/17 10:40 Zinc Sulfate (Zinc Sulfate) 220 mg DAILY ORAL 03/10/17 09:00 04/09/17 08:59 03/14/17 10:32 ODETTE SMILEY Mar 14, 2017 12:29
--- NOTE | 2017-03-14 14:15 | Infectious Diseases Prog Note ---
Assessment/Plan Assessment/Plan A: 57-year-old male w low grade fever x 1 , SP Pneumonia Scx: Provid a+ XDR PSA and GNR Chest x-ray: infiltrate in the right mid lung Sepsis, SP Leukocytosis Fever, SP Transaminitis increased Hep C Ab + Abdominal ultrasound of liver : unremarkable Wound Cx :Colonizer History of cardiac arrest Anoxic encephalopathy Cardiomyopathy SP defibrillator placement Status post G-tube and tracheostomy Paroxysmal atrial fibrillation Hypertension P: cont Merrem and Colistin INH d# 2 / 14 ( 03/13 SP vancomycin and Zosyn d# 5 ) Monitor Cx ( sputum culture and Blood ) Monitor CBC Monitor CMP Monitor Cxray cont vent support Subjective Constitutional: Denies: anorexia, chills, drenching sweats, fatigue, fever, no symptoms, other Allergies: Coded Allergies: No Known Allergies (Unverified , 03/07/17) Subjective Objective Vital Signs Last 24 Hour Vital Signs Date Time Temp Pulse Resp B/P Pulse Ox O2 Delivery O2 Flow Rate FiO2 03/14/17 12:00 97.9 92 27 98/61 99 Mechanical Ventilator 40 03/14/17 10:36 92 22 40 03/14/17 10:00 89 20 99 Mechanical Ventilator 40 03/14/17 09:49 90 20 99 Mechanical Ventilator 40 03/14/17 09:00 98/60 03/14/17 09:00 89 98/60 03/14/17 08:42 90 20 40 03/14/17 08:00 98.8 89 21 98/60 99 Mechanical Ventilator 40 03/14/17 06:32 81 19 40 03/14/17 05:05 82 20 40 03/14/17 04:00 98.2 81 15 92/61 100 Nasal Cannula 03/14/17 04:00 40 03/14/17 03:54 80 03/14/17 03:15 83 21 40 03/14/17 01:15 83 22 40 03/14/17 00:00 98.4 84 16 91/38 99 Mechanical Ventilator 40 03/14/17 00:00 40 03/14/17 00:00 98.4 84 16 91/58 99 Nasal Cannula 03/13/17 23:25 81 03/13/17 22:55 80 21 40 03/13/17 21:08 88 22 100 Mechanical Ventilator 40 03/13/17 21:00 85 22 100 Mechanical Ventilator 40 03/13/17 20:59 85 22 40 03/13/17 20:54 85 100/65 03/13/17 20:00 78 03/13/17 20:00 97.9 85 18 100/65 99 Mechanical Ventilator 40 03/13/17 20:00 40 03/13/17 18:50 82 24 40 03/13/17 17:29 79 24 40 03/13/17 16:00 84 03/13/17 16:00 98.5 82 16 90/59 99 Mechanical Ventilator 45 03/13/17 16:00 40 03/13/17 15:16 78 25 40 03/13/17 15:13 77 23 97 Mechanical Ventilator 40 03/13/17 15:03 90 25 97 Mechanical Ventilator 40 Height (Feet): 6 Height (Inches): 0.00 Weight (Pounds): 150 HEENT: mucous membranes moist Respiratory/Chest: no accessory muscle use Cardiovascular: regular rhythm Abdomen: soft, non tender Laboratory Tests Test 03/14/17 05:46 White Blood Count 14.4 K/UL (4.8-10.8) H Red Blood Count 3.64 M/UL (4.70-6.10) L Hemoglobin 8.6 G/DL (14.2-18.0) L Hematocrit 28.8 % (42.0-52.0) L Mean Corpuscular Volume 79 FL (80-99) L Mean Corpuscular Hemoglobin 23.6 PG (27.0-31.0) L Mean Corpuscular Hemoglobin Concent 29.8 G/DL (32.0-36.0) L Red Cell Distribution Width 20.5 % (11.6-14.8) H Platelet Count 778 K/UL (150-450) H Mean Platelet Volume 5.3 FL (6.5-10.1) L Neutrophils (%) (Auto) 79.9 % (45.0-75.0) H Lymphocytes (%) (Auto) 11.4 % (20.0-45.0) L Monocytes (%) (Auto) 6.1 % (1.0-10.0) Eosinophils (%) (Auto) 2.0 % (0.0-3.0) Basophils (%) (Auto) 0.6 % (0.0-2.0) Sodium Level 141 mEQ/L (135-145) Potassium Level 4.2 mEQ/L (3.4-4.9) Chloride Level 101 mEQ/L (98-107) Carbon Dioxide Level 26 mEQ/L (20-30) Anion Gap 14 (5-15) Blood Urea Nitrogen 20 mg/dL (7-23) Creatinine 0.5 mg/dL (0.7-1.2) L Estimat Glomerular Filtration Rate > 60 mL/min (>60) Glucose Level 128 mg/dL (74-106) H Calcium Level 8.9 mg/dL (8.6-10.2) Total Bilirubin < 0.2 mg/dL (0.0-1.2) Aspartate Amino Transf (AST/SGOT) 222 U/L (5-40) H Alanine Aminotransferase (ALT/SGPT) 266 U/L (3-41) H Alkaline Phosphatase 150 U/L (40-129) H Pro-B-Type Natriuretic Peptide 1799 pg/mL (0-125) H Total Protein 7.5 g/dL (6.6-8.7) Albumin 2.3 g/dL (3.5-5.2) L Globulin 5.2 g/dL Albumin/Globulin Ratio 0.4 (1.0-2.7) L Current Medications Medications (Trade) Dose Ordered Sig/Tameka Route PRN Reason Start Time Stop Time Status Last Admin Dose Admin Acetaminophen (Tylenol) 650 mg Q4H PRN NG Prn Headache/Temp > 101 03/10/17 00:15 04/09/17 00:14 03/13/17 08:41 Acetaminophen/ Hydrocodone Bitart ([place] 5/325) 1 tab Q4H PRN ORAL Moderate Pain (Pain Scale 4-6) 03/10/17 01:30 03/17/17 01:29 Albuterol/ Ipratropium (DuoNeb 0.5-3(2.5)mg/3ml) 3 ml EVERY 4 HOURS PRN HHN Shortness of Breath 03/10/17 01:00 03/15/17 00:59 Amiodarone HCl (Cordarone) 200 mg DAILY GT 03/10/17 09:00 04/09/17 08:59 03/14/17 10:47 Carvedilol (Coreg) 6.25 mg Q12HR GT 03/10/17 09:00 04/09/17 08:59 03/13/17 08:41 Colistimethate Sodium 150 mg 150 mg Q12HR@10,22 INH 03/13/17 12:00 03/20/17 11:59 03/14/17 09:49 Dextrose (Dextrose 50%) STAT PRN IV Hypoglycemia 03/10/17 21:30 04/09/17 21:29 Furosemide (Lasix) 40 mg DAILY PEG 03/11/17 09:00 04/10/17 08:59 03/14/17 10:33 Lansoprazole (Prevacid) 30 mg DAILY GT 03/13/17 09:00 04/12/17 08:59 03/14/17 11:42 Levetiracetam (Keppra) 500 mg Q12HR GT 03/10/17 09:00 04/09/17 08:59 03/14/17 10:32 Lisinopril (Zestril) 10 mg DAILY GT 03/10/17 09:00 04/09/17 08:59 03/11/17 09:51 Lorazepam (Ativan 2mg/ml 1ml) 2 mg EVERY 2 HOURS PRN IV For Anxiety 03/10/17 00:00 03/17/17 00:00 Meropenem/Sodium Chloride (Merrem/Sodium Chloride) 110 ml @ 220 mls/hr Q8HR IVPB 03/13/17 14:00 03/18/17 13:59 03/14/17 13:31 Morphine Sulfate (Morphine Sulfate) 4 mg EVERY 4 HOURS PRN IVP Severe Pain (Pain Scale 7-10) 03/10/17 01:00 03/17/17 00:59 Ondansetron HCl (Zofran) 4 mg Q6H PRN IVP Nausea & Vomiting 03/10/17 03:30 04/09/17 03:29 Polyethylene Glycol (Miralax) 17 gm DAILYPRN PRN ORAL Constipation 03/10/17 21:30 04/09/17 21:29 Spironolactone (Aldactone) 25 mg DAILY GT 03/11/17 09:00 04/10/17 08:59 03/14/17 10:40 Zinc Sulfate (Zinc Sulfate) 220 mg DAILY ORAL 03/10/17 09:00 04/09/17 08:59 03/14/17 10:32 MARCUS PA M.D. Mar 14, 2017 14:15
--- NOTE | 2017-03-14 14:43 | Cardiac Electrophysiology PN ---
Assessment/Plan Assessment/Plan 1. Congestive heart failure with EF 30% and BNP of more than 3000. Decrease Coreg to 3.125 mg twice a day, Zestril 10. DC Lasix 40 and Aldactone for hypotension. Euvolemic now. 2. Paroxysmal Atrial fibrillation. In sinus rhythm on Coreg, amiodarone, and Coumadin per pharmacy. 3. Status post pulseless electrical activity during transesophageal echocardiogram with no clear etiology at [facility]. Ruled out for myocardial infarction as well as pulmonary embolus. 4. S/P SJ ICD. Interrogation showed normal function. Pacer/ICD will not pace if intrinsic heart rate more than 60. 5. VDRF Status post tracheostomy 6. Dysphagia, status post percutaneous endoscopic gastrostomy placement. 7. Anoxic encephalopathy. 8. Pneumonia, on broad-spectrum intravenous antibiotics ROCHELLE RN . Subjective Subjective On vent via tracheostomy.Nonverbal. No arrhythmias on tele. CHF meds were held today for low bp. Objective Last 24 Hour Vital Signs Date Time Temp Pulse Resp B/P Pulse Ox O2 Delivery O2 Flow Rate FiO2 03/14/17 13:17 91 21 40 03/14/17 12:10 40 03/14/17 12:00 97.9 92 27 98/61 99 Mechanical Ventilator 40 03/14/17 10:36 92 22 40 03/14/17 10:00 89 20 99 Mechanical Ventilator 40 03/14/17 09:49 90 20 99 Mechanical Ventilator 40 03/14/17 09:00 98/60 03/14/17 09:00 89 98/60 03/14/17 08:42 90 20 40 03/14/17 08:00 40 03/14/17 08:00 98.8 89 21 98/60 99 Mechanical Ventilator 40 03/14/17 06:32 81 19 40 03/14/17 05:05 82 20 40 03/14/17 04:00 98.2 81 15 92/61 100 Nasal Cannula 03/14/17 04:00 40 03/14/17 03:54 80 03/14/17 03:15 83 21 40 03/14/17 01:15 83 22 40 03/14/17 00:00 98.4 84 16 91/38 99 Mechanical Ventilator 40 03/14/17 00:00 40 03/14/17 00:00 98.4 84 16 91/58 99 Nasal Cannula 03/13/17 23:25 81 03/13/17 22:55 80 21 40 03/13/17 21:08 88 22 100 Mechanical Ventilator 40 03/13/17 21:00 85 22 100 Mechanical Ventilator 40 03/13/17 20:59 85 22 40 03/13/17 20:54 85 100/65 03/13/17 20:00 78 03/13/17 20:00 97.9 85 18 100/65 99 Mechanical Ventilator 40 03/13/17 20:00 40 03/13/17 18:50 82 24 40 03/13/17 17:29 79 24 40 03/13/17 16:00 84 03/13/17 16:00 98.5 82 16 90/59 99 Mechanical Ventilator 45 03/13/17 16:00 40 03/13/17 15:16 78 25 40 03/13/17 15:13 77 23 97 Mechanical Ventilator 40 03/13/17 15:03 90 25 97 Mechanical Ventilator 40 Intake and Output 03/13/17 03/14/17 19:00 07:00 Intake Total 765.0 ml 870 ml Output Total 725 ml 650 ml Balance 40.0 ml 220 ml Intake Free Water 100 ml 100 ml IV Total 165.0 ml 170 ml Tube Feeding 500 ml 600 ml Output Urine Total 725 ml 650 ml Laboratory Tests Test 03/14/17 05:46 White Blood Count 14.4 K/UL (4.8-10.8) H Red Blood Count 3.64 M/UL (4.70-6.10) L Hemoglobin 8.6 G/DL (14.2-18.0) L Hematocrit 28.8 % (42.0-52.0) L Mean Corpuscular Volume 79 FL (80-99) L Mean Corpuscular Hemoglobin 23.6 PG (27.0-31.0) L Mean Corpuscular Hemoglobin Concent 29.8 G/DL (32.0-36.0) L Red Cell Distribution Width 20.5 % (11.6-14.8) H Platelet Count 778 K/UL (150-450) H Mean Platelet Volume 5.3 FL (6.5-10.1) L Neutrophils (%) (Auto) 79.9 % (45.0-75.0) H Lymphocytes (%) (Auto) 11.4 % (20.0-45.0) L Monocytes (%) (Auto) 6.1 % (1.0-10.0) Eosinophils (%) (Auto) 2.0 % (0.0-3.0) Basophils (%) (Auto) 0.6 % (0.0-2.0) Sodium Level 141 mEQ/L (135-145) Potassium Level 4.2 mEQ/L (3.4-4.9) Chloride Level 101 mEQ/L (98-107) Carbon Dioxide Level 26 mEQ/L (20-30) Anion Gap 14 (5-15) Blood Urea Nitrogen 20 mg/dL (7-23) Creatinine 0.5 mg/dL (0.7-1.2) L Estimat Glomerular Filtration Rate > 60 mL/min (>60) Glucose Level 128 mg/dL (74-106) H Calcium Level 8.9 mg/dL (8.6-10.2) Total Bilirubin < 0.2 mg/dL (0.0-1.2) Aspartate Amino Transf (AST/SGOT) 222 U/L (5-40) H Alanine Aminotransferase (ALT/SGPT) 266 U/L (3-41) H Alkaline Phosphatase 150 U/L (40-129) H Pro-B-Type Natriuretic Peptide 1799 pg/mL (0-125) H Total Protein 7.5 g/dL (6.6-8.7) Albumin 2.3 g/dL (3.5-5.2) L Globulin 5.2 g/dL Albumin/Globulin Ratio 0.4 (1.0-2.7) L Objective HEAD AND NECK: Shows no JVD. Status post tracheostomy CARDIOVASCULAR: Shows regular S1 and S2. No gallop or murmur. The defibrillator is in left subclavian. ABDOMEN: Soft. G-tube intact. EXTREMITIES: No pitting edema. DAMIR POOL Mar 14, 2017 14:43
--- NOTE | 2017-03-14 16:36 | Diagnostic Imaging Report ---
Indication: Dyspnea Comparison: 03/11/17 A single view chest radiograph was obtained. Findings: Patchy infiltrates are noted within the right perihilar and left basilar regions. Heart is enlarged. Tracheostomy and pacemaker are again noted. 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 Suspected patchy infiltrates.
[2017-03-15] VITALS: BP 94/62
[2017-03-15 04:00] VITALS: BP 98/68
[2017-03-15 05:10] LABS: BASOPHILS % (AUTO) 0.7 % (0.0-2.0); EOSINOPHILS % (AUTO) 1.7 % (0.0-3.0); LYMPHOCYTES % (AUTO) 12.6 % (20.0-45.0); MEAN CORPUSCULAR HEMOGLOBIN 23.5 PG (27.0-31.0); MEAN CORPUSCULAR HGB CONC 29.7 G/DL (32.0-36.0); MEAN CORPUSCULAR VOLUME 79 FL (80-99); MEAN PLATELET VOLUME 5.5 FL (6.5-10.1); PLATELET COUNT 791 K/UL (150-450); RED BLOOD COUNT 3.81 M/UL (4.70-6.10); RED CELL DISTRIBUTION WIDTH 20.3 % (11.6-14.8); WHITE BLOOD COUNT 14.6 K/UL (4.8-10.8)
[2017-03-15 05:33] LABS: ANION GAP 10 (5-15); CALCIUM 9.2 mg/dL (8.6-10.2); CARBON DIOXIDE 29 mEQ/L (20-30); CHLORIDE 103 mEQ/L (98-107); CREATININE 0.5 mg/dL (0.7-1.2); GLOMERULAR FILTRATION RATE > 60 mL/min (>60); HEMOLYSIS 0; POTASSIUM 4.3 mEQ/L (3.4-4.9); SODIUM 142 mEQ/L (135-145)
[2017-03-15] MEDS: Meropenem 2 GM in NS 110 ML IVPB SCH ×2 (06:28→14:27)
[2017-03-15 08:00] VITALS: BP 107/69
[2017-03-15] MEDS: Lisinopril 10mg tab GT SCH (09:00)
[2017-03-15] MEDS: levETIRAcetam 500mg/5ml Liquid GT SCH ×2 (09:20→21:28)
[2017-03-15] MEDS: Zinc Sulfate 220mg cap ORAL SCH (09:21)
[2017-03-15] MEDS: Amiodarone 200mg tab GT SCH (09:22)
[2017-03-15] MEDS: Colistin for inhalation INH SCH ×2 (09:58→22:00)
[2017-03-15 12:16] VITALS: BP 96/60
[2017-03-15] MEDS ORDERED: Tubing IV Secondary IV ONE (14:50)
[2017-03-15] MEDS ORDERED: NS 275ml ONE (14:50)
[2017-03-15 16:00] VITALS: BP 94/61
--- NOTE | 2017-03-15 17:27 | Pulmonology Progress Note ---
Assessment/Plan Assessment/Plan ASSESSMENT acute hypoxemic respiratory failure on chronic respiratory failure chronic respiratory failure tracheostomy status HCAP/Pseudomonas PAF Hx of CVA HTN dysphagia, G tube systolic CHF cardiomyopathy AICD anoxic encephalopathy seizure disorder sacral decub st 4 POA anemia coagulopathy hep C elevated transaminase PLAN OF CARE LIGIA currently on vent vent/trach care pulmonary toilet baseline ABG and titrate settings as needed fup with CXR abx ID follows sputum cx +Pseudomonas MDR, Providencia, Acinetobacter, blood cx negative, UA negative cardio follows currently in SR on BB, CHEN and Amiodarone, Coumadin per pharmacy, currently on hold due to over-coagulation ECHO with EF 30-35% , mild to moderate MR hx of PEA during DO in [facility], no clear etiology as per cardio patient was r/o for PA and PE abdominal US with medical renal disease monitor renal parameters, lytes, avoid nephrotoxic wound care as per wound nurse recommendations seizure precautions, continue Keppra Venous Duplex BLE negative strict aspiration precautions, GT feeding, monitor tolerance GI prophylaxis bowel regimen pain management trend LFT, hep panel + hep C case discussed and evaluated by supervising physician Subjective Allergies: Coded Allergies: No Known Allergies (Unverified , 03/07/17) Subjective still with leukocytosis afebrile, no signs of respiratory distress on current settings Objective Last 24 Hour Vital Signs Date Time Temp Pulse Resp B/P Pulse Ox O2 Delivery O2 Flow Rate FiO2 03/15/17 16:39 93 22 40 03/15/17 16:00 40 03/15/17 14:55 98 21 40 03/15/17 13:29 99 22 40 03/15/17 12:16 98.3 91 21 96/60 99 Mechanical Ventilator 40 03/15/17 12:00 40 03/15/17 11:55 90 03/15/17 11:06 98 20 40 03/15/17 10:07 92 16 100 Mechanical Ventilator 40 03/15/17 09:55 94 16 100 Mechanical Ventilator 40 03/15/17 09:26 98 19 40 03/15/17 09:21 96 107/69 03/15/17 09:00 96/60 03/15/17 08:00 98.2 96 24 107/69 99 Mechanical Ventilator 40 03/15/17 08:00 10.0 40 03/15/17 08:00 97 03/15/17 06:55 96 20 40 03/15/17 04:37 90 23 40 03/15/17 04:00 98.1 97 22 98/68 Mechanical Ventilator 03/15/17 04:00 97 03/15/17 04:00 10.0 40 03/15/17 02:52 88 21 40 03/15/17 00:41 89 22 40 03/15/17 00:00 10.0 40 03/15/17 00:00 92 03/15/17 00:00 99.7 92 22 94/62 97 Mechanical Ventilator 40 03/14/17 23:23 92 25 40 03/14/17 21:28 92 18 100 Mechanical Ventilator 40 03/14/17 21:27 95 24 99 Mechanical Ventilator 40 03/14/17 21:19 87 20 40 03/14/17 21:00 95/59 03/14/17 20:42 99.7 92 22 94/62 97 Mechanical Ventilator 40 03/14/17 20:00 10.0 40 03/14/17 20:00 92 03/14/17 19:03 95 21 40 03/14/17 18:58 96 94/61 Intake and Output 03/14/17 03/15/17 19:00 07:00 Intake Total 800 ml 710 ml Output Total 1250 ml 1500 ml Balance -450 ml -790 ml Intake Oral 50 ml Free Water 300 ml IV Total 110 ml Tube Feeding 500 ml 550 ml Output Urine Total 1250 ml 1500 ml # Bowel Movements 1 1 General Appearance: no acute distress, other - bedridden awake, not responsive AA male on vent AC 600-16-40% HEENT: normocephalic, atraumatic, anicteric, status post trach - Shiley #8, secretions moderate, yellow, thick Respiratory/Chest: no respiratory distress, rhonchi - few scattered rhonchi Cardiovascular: normal rate, regular rhythm - SR on tele Abdomen: normal bowel sounds, soft, non tender, other - G tube Extremities: no edema 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: abnormal gait - bedridden , other - awake, not responsive, spastic LE Musculoskeletal: atrophy - BLE Laboratory Tests 03/15/17 04:15: White Blood Count 14.6H, Red Blood Count 3.81L, Hemoglobin 9.0L, Hematocrit 30.2L, Mean Corpuscular Volume 79L, Mean Corpuscular Hemoglobin 23.5L, Mean Corpuscular Hemoglobin Concent 29.7L, Red Cell Distribution Width 20.3H, Platelet Count 791H, Mean Platelet Volume 5.5L, Neutrophils (%) (Auto) 78.0H, Lymphocytes (%) (Auto) 12.6L, Monocytes (%) (Auto) 7.0, Eosinophils (%) (Auto) 1.7, Basophils (%) (Auto) 0.7, Sodium Level 142, Potassium Level 4.3, Chloride Level 103, Carbon Dioxide Level 29, Anion Gap 10, Blood Urea Nitrogen 20, Creatinine 0.5L, Estimat Glomerular Filtration Rate > 60, Glucose Level 113H, Calcium Level 9.2 Current Medications Medications (Trade) Dose Ordered Sig/Tameka Route PRN Reason Start Time Stop Time Status Last Admin Dose Admin Acetaminophen (Tylenol) 650 mg Q4H PRN NG Prn Headache/Temp > 101 03/10/17 00:15 04/09/17 00:14 03/13/17 08:41 Acetaminophen/ Hydrocodone Bitart ([place] 5/325) 1 tab Q4H PRN ORAL Moderate Pain (Pain Scale 4-6) 03/10/17 01:30 03/17/17 01:29 Amiodarone HCl (Cordarone) 200 mg DAILY GT 03/15/17 09:00 04/14/17 08:59 03/15/17 09:22 Carvedilol (Coreg) 3.125 mg Q12HR GT 03/14/17 21:00 04/13/17 20:59 03/15/17 09:21 Colistimethate Sodium 150 mg 150 mg Q12HR@10,22 INH 03/13/17 12:00 03/20/17 11:59 03/15/17 09:58 Dextrose (Dextrose 50%) STAT PRN IV Hypoglycemia 03/10/17 21:30 04/09/17 21:29 Lansoprazole (Prevacid) 30 mg DAILY GT 03/13/17 09:00 04/12/17 08:59 03/15/17 09:20 Levetiracetam (Keppra) 500 mg Q12HR GT 03/10/17 09:00 04/09/17 08:59 03/15/17 09:20 Lisinopril (Zestril) 10 mg DAILY GT 03/15/17 09:00 04/14/17 08:59 Lorazepam (Ativan 2mg/ml 1ml) 2 mg EVERY 2 HOURS PRN IV For Anxiety 03/10/17 00:00 03/17/17 00:00 Meropenem/Sodium Chloride (Merrem/Sodium Chloride) 110 ml @ 220 mls/hr Q8HR IVPB 03/13/17 14:00 03/18/17 13:59 03/15/17 14:27 Morphine Sulfate (Morphine Sulfate) 4 mg EVERY 4 HOURS PRN IVP Severe Pain (Pain Scale 7-10) 03/10/17 01:00 03/17/17 00:59 Ondansetron HCl (Zofran) 4 mg Q6H PRN IVP Nausea & Vomiting 03/10/17 03:30 04/09/17 03:29 Polyethylene Glycol (Miralax) 17 gm DAILYPRN PRN ORAL Constipation 03/10/17 21:30 04/09/17 21:29 Zinc Sulfate (Zinc Sulfate) 220 mg DAILY ORAL 03/10/17 09:00 04/09/17 08:59 03/15/17 09:21 [facility]Chiara NP Mar 15, 2017 17:27
[2017-03-15] MEDS ORDERED: Morphine Sulfate 4mg/ml Inj IVP PRN (17:30)
[2017-03-15] MEDS ORDERED: LORazepam Inj 2mg/ml 1ml IV PRN (17:30)
[2017-03-15] MEDS ORDERED: Norco 5mg/325mg tab ORAL PRN (17:30)
--- NOTE | 2017-03-15 19:11 | Cardiac Electrophysiology PN ---
Assessment/Plan Assessment/Plan 1. Congestive heart failure with EF 30% and BNP of more than 3000. Hold Coreg 3.125 mg twice a day, Zestril 10 for SBP<100. Off Lasix and Aldactone for hypotension. Euvolemic now. 2. Paroxysmal Atrial fibrillation. In sinus rhythm on Coreg, amiodarone, and Coumadin per pharmacy. 3. Status post pulseless electrical activity during transesophageal echocardiogram with no clear etiology at [facility]. Ruled out for myocardial infarction as well as pulmonary embolus. 4. S/P SJ ICD. Interrogation showed normal function. Pacer/ICD will not pace if intrinsic heart rate more than 60. 5. VDRF Status post tracheostomy 6. Dysphagia, status post percutaneous endoscopic gastrostomy placement. 7. Anoxic encephalopathy. 8. Pneumonia, on broad-spectrum intravenous antibiotics DW RN . Subjective Subjective On vent via tracheostomy.Nonverbal with open eyes. No arrhythmias on tele. Coreg and Lisinopril meds were held today again for low bp. Objective Last 24 Hour Vital Signs Date Time Temp Pulse Resp B/P Pulse Ox O2 Delivery O2 Flow Rate FiO2 03/15/17 16:39 93 22 40 03/15/17 16:00 98.1 94 23 94/61 98 Mechanical Ventilator 40 03/15/17 16:00 40 03/15/17 16:00 91 03/15/17 14:55 98 21 40 03/15/17 13:29 99 22 40 03/15/17 12:16 98.3 91 21 96/60 99 Mechanical Ventilator 40 03/15/17 12:00 40 03/15/17 11:55 90 03/15/17 11:06 98 20 40 03/15/17 10:07 92 16 100 Mechanical Ventilator 40 03/15/17 09:55 94 16 100 Mechanical Ventilator 40 03/15/17 09:26 98 19 40 03/15/17 09:21 96 107/69 03/15/17 09:00 96/60 03/15/17 08:00 98.2 96 24 107/69 99 Mechanical Ventilator 40 03/15/17 08:00 10.0 40 03/15/17 08:00 97 03/15/17 06:55 96 20 40 03/15/17 04:37 90 23 40 03/15/17 04:00 98.1 97 22 98/68 Mechanical Ventilator 03/15/17 04:00 97 4/29/17 04:00 10.0 40 03/15/17 02:52 88 21 40 03/15/17 00:41 89 22 40 03/15/17 00:00 10.0 40 03/15/17 00:00 92 03/15/17 00:00 99.7 92 22 94/62 97 Mechanical Ventilator 40 03/14/17 23:23 92 25 40 03/14/17 21:28 92 18 100 Mechanical Ventilator 40 03/14/17 21:27 95 24 99 Mechanical Ventilator 40 03/14/17 21:19 87 20 40 03/14/17 21:00 95/59 03/14/17 20:42 99.7 92 22 94/62 97 Mechanical Ventilator 40 03/14/17 20:00 10.0 40 03/14/17 20:00 92 Intake and Output 03/14/17 03/15/17 19:00 07:00 Intake Total 800 ml 710 ml Output Total 1250 ml 1500 ml Balance -450 ml -790 ml Intake Oral 50 ml Free Water 300 ml IV Total 110 ml Tube Feeding 500 ml 550 ml Output Urine Total 1250 ml 1500 ml # Bowel Movements 1 1 Laboratory Tests Test 03/15/17 04:15 White Blood Count 14.6 K/UL (4.8-10.8) H Red Blood Count 3.81 M/UL (4.70-6.10) L Hemoglobin 9.0 G/DL (14.2-18.0) L Hematocrit 30.2 % (42.0-52.0) L Mean Corpuscular Volume 79 FL (80-99) L Mean Corpuscular Hemoglobin 23.5 PG (27.0-31.0) L Mean Corpuscular Hemoglobin Concent 29.7 G/DL (32.0-36.0) L Red Cell Distribution Width 20.3 % (11.6-14.8) H Platelet Count 791 K/UL (150-450) H Mean Platelet Volume 5.5 FL (6.5-10.1) L Neutrophils (%) (Auto) 78.0 % (45.0-75.0) H Lymphocytes (%) (Auto) 12.6 % (20.0-45.0) L Monocytes (%) (Auto) 7.0 % (1.0-10.0) Eosinophils (%) (Auto) 1.7 % (0.0-3.0) Basophils (%) (Auto) 0.7 % (0.0-2.0) Sodium Level 142 mEQ/L (135-145) Potassium Level 4.3 mEQ/L (3.4-4.9) Chloride Level 103 mEQ/L (98-107) Carbon Dioxide Level 29 mEQ/L (20-30) Anion Gap 10 (5-15) Blood Urea Nitrogen 20 mg/dL (7-23) Creatinine 0.5 mg/dL (0.7-1.2) L Estimat Glomerular Filtration Rate > 60 mL/min (>60) Glucose Level 113 mg/dL (74-106) H Calcium Level 9.2 mg/dL (8.6-10.2) Objective HEAD AND NECK: Shows no JVD. Status post tracheostomy CARDIOVASCULAR: Shows regular S1 and S2. No gallop or murmur. The defibrillator is in left subclavian. ABDOMEN: Soft. G-tube intact. EXTREMITIES: No pitting edema. DAMIR POOL Mar 15, 2017 19:11
[2017-03-15 20:00] VITALS: BP 114/74
[2017-03-16] VITALS (8 sets, daily range): BP systolic 91–110; BP diastolic 55–69
[2017-03-16] MEDS: Meropenem 2 GM in NS 110 ML IVPB SCH ×2 (00:01→05:52)
[2017-03-16 05:27] LABS: BASOPHILS % (AUTO) 0.4 % (0.0-2.0); EOSINOPHILS % (AUTO) 0.9 % (0.0-3.0); LYMPHOCYTES % (AUTO) 13.2 % (20.0-45.0); MEAN CORPUSCULAR HEMOGLOBIN 24.8 PG (27.0-31.0); MEAN CORPUSCULAR HGB CONC 31.1 G/DL (32.0-36.0); MEAN CORPUSCULAR VOLUME 80 FL (80-99); MEAN PLATELET VOLUME 5.8 FL (6.5-10.1); MONOCYTES % (AUTO) 8.5 % (1.0-10.0); NEUTROPHILS % (AUTO) 76.9 % (45.0-75.0); PLATELET COUNT 771 K/UL (150-450); RED BLOOD COUNT 3.85 M/UL (4.70-6.10); RED CELL DISTRIBUTION WIDTH 20.3 % (11.6-14.8); WHITE BLOOD COUNT 12.9 K/UL (4.8-10.8)
[2017-03-16 06:00] LABS: ANION GAP 12 (5-15); CALCIUM 9.5 mg/dL (8.6-10.2); CARBON DIOXIDE 29 mEQ/L (20-30); CHLORIDE 103 mEQ/L (98-107); CREATININE 0.6 mg/dL (0.7-1.2); GLOMERULAR FILTRATION RATE > 60 mL/min (>60); HEMOLYSIS 0; POTASSIUM 4.4 mEQ/L (3.4-4.9); SODIUM 144 mEQ/L (135-145)
[2017-03-16 08:32] LABS: ABG ALLEN TEST POSITIVE; ABG BASE EXCESS 8.5; ABG PCO2 44.4 mmHg (35.0-45.0)
[2017-03-16] MEDS: Lisinopril 10mg tab GT SCH (09:00)
--- NOTE | 2017-03-16 09:02 | Infectious Diseases Prog Note ---
Assessment/Plan Assessment/Plan A; Pneumonia with MDR pseudomonas, Providencia & Acinetobacter VDRF Anemia Pressure ulcer Encephalopathy Hep C P: Continue Colistin inhaler, change Meropenem to Bactrim Subjective ROS Limited/Unobtainable: Yes Allergies: Coded Allergies: No Known Allergies (Unverified , 03/07/17) Objective Vital Signs Last 24 Hour Vital Signs Date Time Temp Pulse Resp B/P Pulse Ox O2 Delivery O2 Flow Rate FiO2 03/16/17 06:40 98 20 40 03/16/17 05:16 98 23 40 03/16/17 04:30 97.4 98 24 104/64 99 Mechanical Ventilator 03/16/17 04:00 40 03/16/17 03:59 99 03/16/17 03:30 99 24 40 03/16/17 01:15 101 23 40 03/16/17 00:30 98.3 102 25 106/66 97 Mechanical Ventilator 40 03/16/17 00:27 102 03/16/17 00:00 98.3 102 25 106/66 97 Mechanical Ventilator 40 03/16/17 00:00 40 03/15/17 22:54 101 24 40 03/15/17 21:30 102 26 99 Mechanical Ventilator 03/15/17 21:30 100 24 98 Mechanical Ventilator 03/15/17 21:28 108 114/74 03/15/17 21:07 110 25 40 03/15/17 20:00 98.6 108 26 114/74 96 Mechanical Ventilator 40 03/15/17 20:00 40 03/15/17 19:30 107 24 40 03/15/17 19:16 104 03/15/17 16:39 93 22 40 03/15/17 16:00 98.1 94 23 94/61 98 Mechanical Ventilator 40 03/15/17 16:00 40 03/15/17 16:00 91 03/15/17 14:55 98 21 40 03/15/17 13:29 99 22 40 03/15/17 12:16 98.3 91 21 96/60 99 Mechanical Ventilator 40 03/15/17 12:00 40 03/15/17 11:55 90 03/15/17 11:06 98 20 40 03/15/17 10:07 92 16 100 Mechanical Ventilator 40 03/15/17 09:55 94 16 100 Mechanical Ventilator 40 03/15/17 09:26 98 19 40 03/15/17 09:21 96 107/69 03/15/17 09:00 96/60 Height (Feet): 6 Height (Inches): 0.00 Weight (Pounds): 150 General Appearance: no acute distress HEENT: status post trach Respiratory/Chest: rhonchi - bilaterally, other - on ventilator Cardiovascular: normal rate Abdomen: soft, non tender, other - GT feeding Extremities: no edema 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: other - sleeping Laboratory Tests Test 03/16/17 04:01 03/16/17 08:25 White Blood Count 12.9 K/UL (4.8-10.8) H Red Blood Count 3.85 M/UL (4.70-6.10) L Hemoglobin 9.5 G/DL (14.2-18.0) L Hematocrit 30.6 % (42.0-52.0) L Mean Corpuscular Volume 80 FL (80-99) Mean Corpuscular Hemoglobin 24.8 PG (27.0-31.0) L Mean Corpuscular Hemoglobin Concent 31.1 G/DL (32.0-36.0) L Red Cell Distribution Width 20.3 % (11.6-14.8) H Platelet Count 771 K/UL (150-450) H Mean Platelet Volume 5.8 FL (6.5-10.1) L Neutrophils (%) (Auto) 76.9 % (45.0-75.0) H Lymphocytes (%) (Auto) 13.2 % (20.0-45.0) L Monocytes (%) (Auto) 8.5 % (1.0-10.0) Eosinophils (%) (Auto) 0.9 % (0.0-3.0) Basophils (%) (Auto) 0.4 % (0.0-2.0) Sodium Level 144 mEQ/L (135-145) Potassium Level 4.4 mEQ/L (3.4-4.9) Chloride Level 103 mEQ/L (98-107) Carbon Dioxide Level 29 mEQ/L (20-30) Anion Gap 12 (5-15) Blood Urea Nitrogen 26 mg/dL (7-23) H Creatinine 0.6 mg/dL (0.7-1.2) L Estimat Glomerular Filtration Rate > 60 mL/min (>60) Glucose Level 123 mg/dL (74-106) H Calcium Level 9.5 mg/dL (8.6-10.2) Arterial Blood pH 7.453 (7.350-7.450) Arterial Blood Partial Pressure CO2 44.4 mmHg (35.0-45.0) Arterial Blood Partial Pressure O2 96.7 mmHg (75.0-100.0) Arterial Blood HCO3 30.4 mmol/L (22.0-26.0) H Arterial Blood Oxygen Saturation 97.2 % (92.0-98.0) Arterial Blood Base Excess 8.5 Son Test Positive Current Medications Medications (Trade) Dose Ordered Sig/Tameka Route PRN Reason Start Time Stop Time Status Last Admin Dose Admin Acetaminophen (Tylenol) 650 mg Q4H PRN NG Prn Headache/Temp > 101 03/10/17 00:15 04/09/17 00:14 03/13/17 08:41 Acetaminophen/ Hydrocodone Bitart ([place] 5/325) 1 tab Q4H PRN ORAL Moderate Pain (Pain Scale 4-6) 03/15/17 17:30 03/22/17 17:29 Amiodarone HCl (Cordarone) 200 mg DAILY GT 03/15/17 09:00 04/14/17 08:59 03/15/17 09:22 Carvedilol (Coreg) 3.125 mg Q12HR GT 03/14/17 21:00 04/13/17 20:59 03/15/17 21:28 Colistimethate Sodium 150 mg 150 mg Q12HR@10,22 INH 03/13/17 12:00 03/20/17 11:59 03/15/17 22:00 Dextrose (Dextrose 50%) STAT PRN IV Hypoglycemia 03/10/17 21:30 04/09/17 21:29 Lansoprazole (Prevacid) 30 mg DAILY GT 03/13/17 09:00 04/12/17 08:59 03/15/17 09:20 Levetiracetam (Keppra) 500 mg Q12HR GT 03/10/17 09:00 04/09/17 08:59 03/15/17 21:28 Lisinopril (Zestril) 10 mg DAILY GT 03/15/17 09:00 04/14/17 08:59 Lorazepam (Ativan 2mg/ml 1ml) 2 mg Q2H PRN IV For Anxiety 03/15/17 17:30 03/22/17 17:29 Meropenem/Sodium Chloride (Merrem/Sodium Chloride) 110 ml @ 220 mls/hr Q8HR IVPB 03/13/17 14:00 03/18/17 13:59 03/16/17 05:52 Morphine Sulfate (Morphine Sulfate) 4 mg Q4H PRN IVP Severe Pain (Pain Scale 7-10) 03/15/17 17:30 03/22/17 17:29 Ondansetron HCl (Zofran) 4 mg Q6H PRN IVP Nausea & Vomiting 03/10/17 03:30 04/09/17 03:29 Polyethylene Glycol (Miralax) 17 gm DAILYPRN PRN ORAL Constipation 03/10/17 21:30 04/09/17 21:29 Zinc Sulfate (Zinc Sulfate) 220 mg DAILY ORAL 03/10/17 09:00 04/09/17 08:59 03/15/17 09:21 CHRISTINE MERA Mar 16, 2017 09:02
[2017-03-16] MEDS: levETIRAcetam 500mg/5ml Liquid GT SCH ×2 (09:32→21:25)
[2017-03-16] MEDS: Zinc Sulfate 220mg cap ORAL SCH (09:33)
[2017-03-16] MEDS: Amiodarone 200mg tab GT SCH (09:33)
[2017-03-16] MEDS: Colistin for inhalation INH SCH ×2 (10:24→21:30)
--- NOTE | 2017-03-16 12:30 | Pulmonology Progress Note ---
Assessment/Plan Assessment/Plan ASSESSMENT acute hypoxemic respiratory failure on chronic respiratory failure chronic respiratory failure tracheostomy status HCAP/Pseudomonas PAF Hx of CVA HTN dysphagia, G tube systolic CHF cardiomyopathy AICD anoxic encephalopathy seizure disorder sacral decub st 4 POA anemia coagulopathy hep C elevated transaminase PLAN OF CARE LIGIA currently on vent vent/trach care pulmonary toilet baseline ABG stable , keep settings as is and titrate as needed fup with CXR in am abx ID follows sputum cx +Pseudomonas MDR, Providencia, Acinetobacter, blood cx negative, UA negative cardio follows currently in SR on BB, CHEN and Amiodarone, Coumadin per pharmacy, currently on hold due to over-coagulation ECHO with EF 30-35% , mild to moderate MR hx of PEA during DO in [facility], no clear etiology as per cardio patient was r/o for MT and PE abdominal US with medical renal disease monitor renal parameters, lytes, avoid nephrotoxic wound care as per wound nurse recommendations seizure precautions, continue Keppra Venous Duplex BLE negative strict aspiration precautions, GT feeding, monitor tolerance GI prophylaxis bowel regimen pain management trend LFT, hep panel + hep C case discussed and evaluated by supervising physician Subjective Allergies: Coded Allergies: No Known Allergies (Unverified , 03/07/17) Subjective leukocytosis trending down, afebrile, no signs of respiratory distress on current settings Objective Last 24 Hour Vital Signs Date Time Temp Pulse Resp B/P Pulse Ox O2 Delivery O2 Flow Rate FiO2 03/16/17 12:00 40 03/16/17 10:40 88 16 40 03/16/17 09:33 101 96/60 03/16/17 09:00 96 22 40 03/16/17 09:00 99 22 97 Mechanical Ventilator 03/16/17 09:00 100 22 97 Mechanical Ventilator 03/16/17 08:00 40 03/16/17 06:40 98 20 40 03/16/17 05:16 98 23 40 03/16/17 04:30 97.4 98 24 104/64 99 Mechanical Ventilator 03/16/17 04:00 40 03/16/17 03:59 99 03/16/17 03:30 99 24 40 03/16/17 01:15 101 23 40 03/16/17 00:30 98.3 102 25 106/66 97 Mechanical Ventilator 40 03/16/17 00:27 102 03/16/17 00:00 98.3 102 25 106/66 97 Mechanical Ventilator 40 03/16/17 00:00 40 03/15/17 22:54 101 24 40 03/15/17 21:30 102 26 99 Mechanical Ventilator 03/15/17 21:30 100 24 98 Mechanical Ventilator 03/15/17 21:28 108 114/74 03/15/17 21:07 110 25 40 03/15/17 20:00 98.6 108 26 114/74 96 Mechanical Ventilator 40 03/15/17 20:00 40 03/15/17 19:30 107 24 40 03/15/17 19:16 104 03/15/17 16:39 93 22 40 03/15/17 16:00 98.1 94 23 94/61 98 Mechanical Ventilator 40 03/15/17 16:00 40 03/15/17 16:00 91 03/15/17 14:55 98 21 40 03/15/17 13:29 99 22 40 Intake and Output 03/15/17 03/16/17 19:00 07:00 Intake Total 1100 ml 600 ml Output Total 1800 ml Balance -700 ml 600 ml Free Water 300 ml 100 ml Tube Feeding 700 ml 500 ml Other 100 ml Output Urine Total 1800 ml # Bowel Movements 1 Objective General Appearance: no acute distress, other - bedridden awake, not responsive AA male on vent AC 600-16-40% HEENT: normocephalic, atraumatic, anicteric, status post trach - Shiley #8, secretions moderate, yellow, thick Respiratory/Chest: no respiratory distress, few scattered rhonchi Cardiovascular: normal rate, regular rhythm - SR on tele Abdomen: normal bowel sounds, soft, non tender, other - G tube Extremities: no edema 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: abnormal gait - bedridden , awake, not responsive, spastic LE Musculoskeletal: atrophy - BLE Laboratory Tests 03/16/17 04:01: White Blood Count 12.9H, Red Blood Count 3.85L, Hemoglobin 9.5L, Hematocrit 30.6L, Mean Corpuscular Volume 80, Mean Corpuscular Hemoglobin 24.8L, Mean Corpuscular Hemoglobin Concent 31.1L, Red Cell Distribution Width 20.3H, Platelet Count 771H, Mean Platelet Volume 5.8L, Neutrophils (%) (Auto) 76.9H, Lymphocytes (%) (Auto) 13.2L, Monocytes (%) (Auto) 8.5, Eosinophils (%) (Auto) 0.9, Basophils (%) (Auto) 0.4, Sodium Level 144, Potassium Level 4.4, Chloride Level 103, Carbon Dioxide Level 29, Anion Gap 12, Blood Urea Nitrogen 26H, Creatinine 0.6L, Estimat Glomerular Filtration Rate > 60, Glucose Level 123H, Calcium Level 9.5 03/16/17 08:25: Arterial Blood pH 7.453H, Arterial Blood Partial Pressure CO2 44.4, Arterial Blood Partial Pressure O2 96.7, Arterial Blood HCO3 30.4H, Arterial Blood Oxygen Saturation 97.2, Arterial Blood Base Excess 8.5, Son Test Positive Current Medications Medications (Trade) Dose Ordered Sig/Tameka Route PRN Reason Start Time Stop Time Status Last Admin Dose Admin Acetaminophen (Tylenol) 650 mg Q4H PRN NG Prn Headache/Temp > 101 03/10/17 00:15 04/09/17 00:14 03/13/17 08:41 Acetaminophen/ Hydrocodone Bitart ([place] 5/325) 1 tab Q4H PRN ORAL Moderate Pain (Pain Scale 4-6) 03/15/17 17:30 03/22/17 17:29 Amiodarone HCl (Cordarone) 200 mg DAILY GT 03/15/17 09:00 04/14/17 08:59 03/16/17 09:33 Carvedilol (Coreg) 3.125 mg Q12HR GT 03/14/17 21:00 04/13/17 20:59 03/16/17 09:33 Colistimethate Sodium (Colistin *inhalation use only*) 150 mg Q12HR@10,22 INH 03/13/17 12:00 03/20/17 11:59 03/16/17 10:24 Dextrose (Dextrose 50%) STAT PRN IV Hypoglycemia 03/10/17 21:30 04/09/17 21:29 Lansoprazole (Prevacid) 30 mg DAILY GT 03/13/17 09:00 04/12/17 08:59 03/16/17 09:33 Levetiracetam (Keppra) 500 mg Q12HR GT 03/10/17 09:00 04/09/17 08:59 03/16/17 09:32 Lisinopril (Zestril) 10 mg DAILY GT 03/15/17 09:00 04/14/17 08:59 Lorazepam (Ativan 2mg/ml 1ml) 2 mg Q2H PRN IV For Anxiety 03/15/17 17:30 03/22/17 17:29 Morphine Sulfate (Morphine Sulfate) 4 mg Q4H PRN IVP Severe Pain (Pain Scale 7-10) 03/15/17 17:30 03/22/17 17:29 Ondansetron HCl (Zofran) 4 mg Q6H PRN IVP Nausea & Vomiting 03/10/17 03:30 04/09/17 03:29 Polyethylene Glycol (Miralax) 17 gm DAILYPRN PRN ORAL Constipation 03/10/17 21:30 04/09/17 21:29 Trimethoprim/ Sulfamethoxazole (Bactrim-DS) 20 ml EVERY 12 HOURS GT 03/16/17 10:00 03/23/17 09:59 Zinc Sulfate (Zinc Sulfate) 220 mg DAILY ORAL 03/10/17 09:00 04/09/17 08:59 03/16/17 09:33 Diaz WashingtonChiara marcos NP Mar 16, 2017 12:30
[2017-03-16] MEDS: Bactrim Susp 20ml GT SCH ×2 (12:38→21:25)
[2017-03-17] VITALS (7 sets, daily range): BP systolic 99–126; BP diastolic 57–72
[2017-03-17 05:02] LABS: BASOPHILS % (AUTO) 0.6 % (0.0-2.0); EOSINOPHILS % (AUTO) 0.7 % (0.0-3.0); MEAN CORPUSCULAR HEMOGLOBIN 23.7 PG (27.0-31.0); MEAN CORPUSCULAR HGB CONC 29.7 G/DL (32.0-36.0); MEAN CORPUSCULAR VOLUME 80 FL (80-99); MEAN PLATELET VOLUME 5.7 FL (6.5-10.1); MONOCYTES % (AUTO) 8.8 % (1.0-10.0); NEUTROPHILS % (AUTO) 75.9 % (45.0-75.0); PLATELET COUNT 723 K/UL (150-450); RED BLOOD COUNT 4.07 M/UL (4.70-6.10); RED CELL DISTRIBUTION WIDTH 20.7 % (11.6-14.8); WHITE BLOOD COUNT 11.7 K/UL (4.8-10.8)
[2017-03-17 05:20] LABS: ANION GAP 11 (5-15); CALCIUM 9.3 mg/dL (8.6-10.2); CARBON DIOXIDE 27 mEQ/L (20-30); CHLORIDE 106 mEQ/L (98-107); CREATININE 0.6 mg/dL (0.7-1.2); GLOMERULAR FILTRATION RATE > 60 mL/min (>60); HEMOLYSIS 0; POTASSIUM 4.5 mEQ/L (3.4-4.9); SODIUM 144 mEQ/L (135-145)
[2017-03-17] MEDS: Lisinopril 10mg tab GT SCH (09:00)
[2017-03-17] MEDS: Bactrim Susp 20ml GT SCH (09:29)
[2017-03-17] MEDS: Amiodarone 200mg tab GT SCH (09:29)
[2017-03-17] MEDS: levETIRAcetam 500mg/5ml Liquid GT SCH ×2 (09:30→20:46)
[2017-03-17] MEDS: Zinc Sulfate 220mg cap ORAL SCH (09:31)
[2017-03-17] MEDS: Colistin for inhalation INH SCH ×2 (09:57→22:49)
--- NOTE | 2017-03-17 10:31 | GI Progress Note ---
Assessment/Plan Problems: (1) Anemia ICD Codes: D64.9 - Anemia, unspecified SNOMED: 302685293 (2) Feeding by G-tube ICD Codes: Z93.1 - Gastrostomy status SNOMED: 506478157, 470276662 (3) Leukocytosis ICD Codes: D72.829 - Elevated white blood cell count, unspecified SNOMED: 685015709, 194472834 (4) Transaminitis ICD Codes: R74.0 - Nonspecific elevation of levels of transaminase and lactic acid dehydrogenase [LDH] SNOMED: 691611922 Status: unchanged Status Narrative Discussed with Dr. Alex. Assessment/Plan iron deficient >> venofer elevated CEA >> 7.4 AFP >> WNL abd U/S reviewed >> unremarkable Hep C positive OB negative monitor H&H, transfuse prn GTFs per dietary monitor LFTs ppi fu labs Subjective Subjective limited Objective Last 24 Hour Vital Signs Date Time Temp Pulse Resp B/P Pulse Ox O2 Delivery O2 Flow Rate FiO2 03/17/17 10:12 101 20 98 Mechanical Ventilator 03/17/17 09:58 94 21 98 Mechanical Ventilator 03/17/17 09:30 94 120/66 03/17/17 09:29 91 20 40 03/17/17 07:23 94 21 40 03/17/17 05:09 93 22 40 03/17/17 04:30 99.5 94 22 102/72 98 Mechanical Ventilator 03/17/17 04:00 40 03/17/17 03:57 93 03/17/17 02:47 92 23 40 03/17/17 01:02 95 22 40 03/17/17 00:00 40 03/16/17 23:57 98.8 95 24 110/69 97 03/16/17 23:53 93 03/16/17 23:04 90 22 40 03/16/17 21:45 98 21 98 Mechanical Ventilator 03/16/17 21:30 92 22 99 Mechanical Ventilator 03/16/17 21:00 100/62 03/16/17 20:41 88 21 40 03/16/17 20:00 40 03/16/17 20:00 99.1 88 21 100/62 99 03/16/17 19:43 88 03/16/17 19:33 89 21 40 03/16/17 16:50 92 27 40 03/16/17 16:02 88 03/16/17 16:00 40 03/16/17 16:00 98.1 89 20 91/55 98 Mechanical Ventilator 40 03/16/17 14:40 88 20 40 03/16/17 13:10 95 24 40 03/16/17 12:00 99.1 95 24 94/59 97 Mechanical Ventilator 40 03/16/17 12:00 40 03/16/17 11:40 93 03/16/17 10:40 88 16 40 Intake and Output 03/16/17 03/17/17 19:00 07:00 Intake Total 1000 ml 800 ml Output Total 1000 ml 895 ml Balance 0 ml -95 ml Free Water 300 ml 200 ml Tube Feeding 600 ml 600 ml Other 100 ml Output Urine Total 1000 ml 895 ml # Bowel Movements 2 Laboratory Tests Test 03/17/17 04:15 White Blood Count 11.7 K/UL (4.8-10.8) H Red Blood Count 4.07 M/UL (4.70-6.10) L Hemoglobin 9.6 G/DL (14.2-18.0) L Hematocrit 32.4 % (42.0-52.0) L Mean Corpuscular Volume 80 FL (80-99) Mean Corpuscular Hemoglobin 23.7 PG (27.0-31.0) L Mean Corpuscular Hemoglobin Concent 29.7 G/DL (32.0-36.0) L Red Cell Distribution Width 20.7 % (11.6-14.8) H Platelet Count 723 K/UL (150-450) H Mean Platelet Volume 5.7 FL (6.5-10.1) L Neutrophils (%) (Auto) 75.9 % (45.0-75.0) H Lymphocytes (%) (Auto) 14.0 % (20.0-45.0) L Monocytes (%) (Auto) 8.8 % (1.0-10.0) Eosinophils (%) (Auto) 0.7 % (0.0-3.0) Basophils (%) (Auto) 0.6 % (0.0-2.0) Sodium Level 144 mEQ/L (135-145) Potassium Level 4.5 mEQ/L (3.4-4.9) Chloride Level 106 mEQ/L (98-107) Carbon Dioxide Level 27 mEQ/L (20-30) Anion Gap 11 (5-15) Blood Urea Nitrogen 30 mg/dL (7-23) H Creatinine 0.6 mg/dL (0.7-1.2) L Estimat Glomerular Filtration Rate > 60 mL/min (>60) Glucose Level 137 mg/dL (74-106) H Calcium Level 9.3 mg/dL (8.6-10.2) Height (Feet): 6 Height (Inches): 0.00 Weight (Pounds): 150 General Appearance: no apparent distress, alert Cardiovascular: normal rate Respiratory/Chest: normal breath sounds, no respiratory distress, [facility] Abdominal Exam: site - c/d/i Lani Last N.P. March 17, 2017 10:31
--- NOTE | 2017-03-17 11:26 | Diagnostic Imaging Report ---
Indication: SOB Technique: One view of the chest Comparison: 03/14/2017 Findings: Ill-defined interstitial opacities in the right mid and lower lung persists, stable. Left lung, bilateral pleural spaces remain clear. Tracheostomy, pacemaker remain. Surgical sherrill and surgical tubing project over the upper abdomen. Findings are essentially unchanged Impression: Unchanged, over one day, findings as above.
--- NOTE | 2017-03-17 11:36 | Infectious Diseases Prog Note ---
Assessment/Plan Assessment/Plan A: 57-year-old male w low grade fever x 1 , SP Pneumonia Scx: Provid a+ XDR PSA and Providencia Chest x-ray: infiltrate in the right mid lung Sepsis, SP Leukocytosis improving Fever, SP Transaminitis increased Hep C Ab + Abdominal ultrasound of liver : unremarkable Wound Cx :Colonizer History of cardiac arrest Anoxic encephalopathy Cardiomyopathy SP defibrillator placement Status post G-tube and tracheostomy Paroxysmal atrial fibrillation Hypertension P: cont Merrem and Colistin INH d# / , hold Bactrim ( 03/13 SP vancomycin and Zosyn d# 5 ) Monitor CBC Monitor CMP Monitor Cxray cont vent support Subjective Allergies: Coded Allergies: No Known Allergies (Unverified , 03/07/17) Subjective afebrile Objective Vital Signs Last 24 Hour Vital Signs Date Time Temp Pulse Resp B/P Pulse Ox O2 Delivery O2 Flow Rate FiO2 03/17/17 10:12 101 20 98 Mechanical Ventilator 03/17/17 09:58 94 21 98 Mechanical Ventilator 03/17/17 09:30 94 120/66 03/17/17 09:29 91 20 40 03/17/17 09:28 94 22 120/66 98 Mechanical Ventilator 40 03/17/17 08:09 93 03/17/17 08:00 98.1 93 23 99/63 98 Mechanical Ventilator 40 03/17/17 07:23 94 21 40 03/17/17 05:09 93 22 40 03/17/17 04:30 99.5 94 22 102/72 98 Mechanical Ventilator 03/17/17 04:00 40 03/17/17 03:57 93 03/17/17 02:47 92 23 40 03/17/17 01:02 95 22 40 03/17/17 00:00 40 03/16/17 23:57 98.8 95 24 110/69 97 03/16/17 23:53 93 03/16/17 23:04 90 22 40 03/16/17 21:45 98 21 98 Mechanical Ventilator 03/16/17 21:30 92 22 99 Mechanical Ventilator 03/16/17 21:00 100/62 03/16/17 20:41 88 21 40 03/16/17 20:00 40 03/16/17 20:00 99.1 88 21 100/62 99 03/16/17 19:43 88 4/30/17 19:33 89 21 40 03/16/17 16:50 92 27 40 03/16/17 16:02 88 03/16/17 16:00 40 03/16/17 16:00 98.1 89 20 91/55 98 Mechanical Ventilator 40 03/16/17 14:40 88 20 40 03/16/17 13:10 95 24 40 03/16/17 12:00 99.1 95 24 94/59 97 Mechanical Ventilator 40 03/16/17 12:00 40 03/16/17 11:40 93 Height (Feet): 6 Height (Inches): 0.00 Weight (Pounds): 150 HEENT: atraumatic Respiratory/Chest: normal breath sounds Cardiovascular: regular rhythm Abdomen: no organomegaly Laboratory Tests Test 03/17/17 04:15 White Blood Count 11.7 K/UL (4.8-10.8) H Red Blood Count 4.07 M/UL (4.70-6.10) L Hemoglobin 9.6 G/DL (14.2-18.0) L Hematocrit 32.4 % (42.0-52.0) L Mean Corpuscular Volume 80 FL (80-99) Mean Corpuscular Hemoglobin 23.7 PG (27.0-31.0) L Mean Corpuscular Hemoglobin Concent 29.7 G/DL (32.0-36.0) L Red Cell Distribution Width 20.7 % (11.6-14.8) H Platelet Count 723 K/UL (150-450) H Mean Platelet Volume 5.7 FL (6.5-10.1) L Neutrophils (%) (Auto) 75.9 % (45.0-75.0) H Lymphocytes (%) (Auto) 14.0 % (20.0-45.0) L Monocytes (%) (Auto) 8.8 % (1.0-10.0) Eosinophils (%) (Auto) 0.7 % (0.0-3.0) Basophils (%) (Auto) 0.6 % (0.0-2.0) Sodium Level 144 mEQ/L (135-145) Potassium Level 4.5 mEQ/L (3.4-4.9) Chloride Level 106 mEQ/L (98-107) Carbon Dioxide Level 27 mEQ/L (20-30) Anion Gap 11 (5-15) Blood Urea Nitrogen 30 mg/dL (7-23) H Creatinine 0.6 mg/dL (0.7-1.2) L Estimat Glomerular Filtration Rate > 60 mL/min (>60) Glucose Level 137 mg/dL (74-106) H Calcium Level 9.3 mg/dL (8.6-10.2) Current Medications Medications (Trade) Dose Ordered Sig/Tameka Route PRN Reason Start Time Stop Time Status Last Admin Dose Admin Acetaminophen (Tylenol) 650 mg Q4H PRN NG Prn Headache/Temp > 101 03/10/17 00:15 04/09/17 00:14 03/13/17 08:41 Acetaminophen/ Hydrocodone Bitart ([place] 5/325) 1 tab Q4H PRN ORAL Moderate Pain (Pain Scale 4-6) 03/15/17 17:30 03/22/17 17:29 Amiodarone HCl (Cordarone) 200 mg DAILY GT 03/15/17 09:00 04/14/17 08:59 03/17/17 09:29 Carvedilol (Coreg) 3.125 mg Q12HR GT 03/14/17 21:00 04/13/17 20:59 03/17/17 09:30 Colistimethate Sodium (Colistin *inhalation use only*) 150 mg Q12HR@10,22 INH 03/13/17 12:00 03/20/17 11:59 03/17/17 09:57 Dextrose (Dextrose 50%) STAT PRN IV Hypoglycemia 03/10/17 21:30 04/09/17 21:29 Lansoprazole (Prevacid) 30 mg DAILY GT 03/13/17 09:00 04/12/17 08:59 03/17/17 09:30 Levetiracetam (Keppra) 500 mg Q12HR GT 03/10/17 09:00 04/09/17 08:59 03/17/17 09:30 Lisinopril (Zestril) 10 mg DAILY GT 03/15/17 09:00 04/14/17 08:59 Lorazepam (Ativan 2mg/ml 1ml) 2 mg Q2H PRN IV For Anxiety 03/15/17 17:30 03/22/17 17:29 Morphine Sulfate (Morphine Sulfate) 4 mg Q4H PRN IVP Severe Pain (Pain Scale 7-10) 03/15/17 17:30 03/22/17 17:29 Ondansetron HCl (Zofran) 4 mg Q6H PRN IVP Nausea & Vomiting 03/10/17 03:30 04/09/17 03:29 Polyethylene Glycol (Miralax) 17 gm DAILYPRN PRN ORAL Constipation 03/10/17 21:30 04/09/17 21:29 Trimethoprim/ Sulfamethoxazole (Bactrim-DS) 20 ml EVERY 12 HOURS GT 03/16/17 10:00 03/23/17 09:59 03/17/17 09:29 Zinc Sulfate (Zinc Sulfate) 220 mg DAILY ORAL 03/10/17 09:00 04/09/17 08:59 03/17/17 09:31 MARCUS PA M.D. March 17, 2017 11:36
[2017-03-17] MEDS ORDERED: MERREM1 GM IV (11:59)
[2017-03-17] MEDS ORDERED: COLISTIN150 MG INH (11:59)
[2017-03-17] MEDS ORDERED: COREG3.125 MG GT (11:59)
[2017-03-17 12:27] LABS: BASOPHILS % (AUTO) 0.5 % (0.0-2.0); EOSINOPHILS % (AUTO) 0.5 % (0.0-3.0); LYMPHOCYTES % (AUTO) 13.3 % (20.0-45.0); MEAN CORPUSCULAR HEMOGLOBIN 23.3 PG (27.0-31.0); MEAN CORPUSCULAR HGB CONC 29.5 G/DL (32.0-36.0); MEAN CORPUSCULAR VOLUME 79 FL (80-99); MEAN PLATELET VOLUME 5.7 FL (6.5-10.1); MONOCYTES % (AUTO) 11.6 % (1.0-10.0); PLATELET COUNT 726 K/UL (150-450); RED BLOOD COUNT 3.94 M/UL (4.70-6.10); RED CELL DISTRIBUTION WIDTH 20.4 % (11.6-14.8); WHITE BLOOD COUNT 12.7 K/UL (4.8-10.8)
--- NOTE | 2017-03-17 12:43 | Pulmonology Progress Note ---
Assessment/Plan Problems: (1) Respiratory distress (2) Chronic respiratory acidosis (3) Feeding by G-tube (4) CHF (congestive heart failure) (5) Pneumonia (6) EF of 30% Assessment/Plan improving watch wbc continue vent echo result noted, EF of 30 continue antibiotics in longterm as recommended by ID tolerating feeding Subjective ROS Limited/Unobtainable: Yes Allergies: Coded Allergies: No Known Allergies (Unverified , 03/07/17) Objective Last 24 Hour Vital Signs Date Time Temp Pulse Resp B/P Pulse Ox O2 Delivery O2 Flow Rate FiO2 03/17/17 12:00 40 03/17/17 11:17 90 20 40 03/17/17 10:12 101 20 98 Mechanical Ventilator 03/17/17 09:58 94 21 98 Mechanical Ventilator 03/17/17 09:30 94 120/66 03/17/17 09:29 91 20 40 03/17/17 09:28 94 22 120/66 98 Mechanical Ventilator 40 03/17/17 09:00 99/63 03/17/17 08:09 93 03/17/17 08:00 98.1 93 23 99/63 98 Mechanical Ventilator 40 03/17/17 08:00 40 03/17/17 07:23 94 21 40 03/17/17 05:09 93 22 40 03/17/17 04:30 99.5 94 22 102/72 98 Mechanical Ventilator 03/17/17 04:00 40 03/17/17 03:57 93 03/17/17 02:47 92 23 40 03/17/17 01:02 95 22 40 03/17/17 00:00 40 03/16/17 23:57 98.8 95 24 110/69 97 03/16/17 23:53 93 03/16/17 23:04 90 22 40 03/16/17 21:45 98 21 98 Mechanical Ventilator 03/16/17 21:30 92 22 99 Mechanical Ventilator 03/16/17 21:00 100/62 03/16/17 20:41 88 21 40 03/16/17 20:00 40 03/16/17 20:00 99.1 88 21 100/62 99 03/16/17 19:43 88 03/16/17 19:33 89 21 40 03/16/17 16:50 92 27 40 03/16/17 16:02 88 03/16/17 16:00 40 03/16/17 16:00 98.1 89 20 91/55 98 Mechanical Ventilator 40 03/16/17 14:40 88 20 40 03/16/17 13:10 95 24 40 Intake and Output 03/16/17 03/17/17 19:00 07:00 Intake Total 1000 ml 800 ml Output Total 1000 ml 895 ml Balance 0 ml -95 ml Free Water 300 ml 200 ml Tube Feeding 600 ml 600 ml Other 100 ml Output Urine Total 1000 ml 895 ml # Bowel Movements 2 Objective General Appearance: WD/WN HEENT: normocephalic, atraumatic, trach in place Respiratory/Chest: chest wall non-tender, lungs rhonchi Cardiovascular: normal peripheral pulses, normal rate, regular rhythm Abdomen: normal bowel sounds, soft, non tender, no organomegaly, Gtube, sherrill in place Extremities: no cyanosis, no clubbing Skin: no rash, no lesions Laboratory Tests 03/17/17 04:15: White Blood Count 11.7H, Red Blood Count 4.07L, Hemoglobin 9.6L, Hematocrit 32.4L, Mean Corpuscular Volume 80, Mean Corpuscular Hemoglobin 23.7L, Mean Corpuscular Hemoglobin Concent 29.7L, Red Cell Distribution Width 20.7H, Platelet Count 723H, Mean Platelet Volume 5.7L, Neutrophils (%) (Auto) 75.9H, Lymphocytes (%) (Auto) 14.0L, Monocytes (%) (Auto) 8.8, Eosinophils (%) (Auto) 0.7, Basophils (%) (Auto) 0.6, Sodium Level 144, Potassium Level 4.5, Chloride Level 106, Carbon Dioxide Level 27, Anion Gap 11, Blood Urea Nitrogen 30H, Creatinine 0.6L, Estimat Glomerular Filtration Rate > 60, Glucose Level 137H, Calcium Level 9.3 03/17/17 11:55: White Blood Count 12.7H, Red Blood Count 3.94L, Hemoglobin 9.2L, Hematocrit 31.1L, Mean Corpuscular Volume 79L, Mean Corpuscular Hemoglobin 23.3L, Mean Corpuscular Hemoglobin Concent 29.5L, Red Cell Distribution Width 20.4H, Platelet Count 726H, Mean Platelet Volume 5.7L, Neutrophils (%) (Auto) 74.0, Lymphocytes (%) (Auto) 13.3L, Monocytes (%) (Auto) 11.6H, Eosinophils (%) (Auto ) 0.5, Basophils (%) (Auto) 0.5 Current Medications Medications (Trade) Dose Ordered Sig/Tameka Route PRN Reason Start Time Stop Time Status Last Admin Dose Admin Acetaminophen (Tylenol) 650 mg Q4H PRN NG Prn Headache/Temp > 101 03/10/17 00:15 04/09/17 00:14 03/13/17 08:41 Acetaminophen/ Hydrocodone Bitart ([place] 5/325) 1 tab Q4H PRN ORAL Moderate Pain (Pain Scale 4-6) 03/15/17 17:30 03/22/17 17:29 Amiodarone HCl (Cordarone) 200 mg DAILY GT 03/15/17 09:00 04/14/17 08:59 03/17/17 09:29 Carvedilol (Coreg) 3.125 mg Q12HR GT 03/14/17 21:00 04/13/17 20:59 03/17/17 09:30 Colistimethate Sodium (Colistin *inhalation use only*) 150 mg Q12HR@10,22 INH 03/13/17 12:00 03/20/17 11:59 03/17/17 09:57 Dextrose (Dextrose 50%) STAT PRN IV Hypoglycemia 03/10/17 21:30 04/09/17 21:29 Lansoprazole (Prevacid) 30 mg DAILY GT 03/13/17 09:00 04/12/17 08:59 03/17/17 09:30 Levetiracetam (Keppra) 500 mg Q12HR GT 03/10/17 09:00 04/09/17 08:59 03/17/17 09:30 Lisinopril (Zestril) 10 mg DAILY GT 03/15/17 09:00 04/14/17 08:59 Lorazepam (Ativan 2mg/ml 1ml) 2 mg Q2H PRN IV For Anxiety 03/15/17 17:30 03/22/17 17:29 Meropenem/Sodium Chloride (Merrem/Sodium Chloride) 110 ml @ 220 mls/hr Q8HR IVPB 03/17/17 14:00 03/22/17 13:59 Morphine Sulfate 4 mg 4 mg Q4H PRN IVP Severe Pain (Pain Scale 7-10) 03/15/17 17:30 03/22/17 17:29 Ondansetron HCl (Zofran) 4 mg Q6H PRN IVP Nausea & Vomiting 03/10/17 03:30 04/09/17 03:29 Polyethylene Glycol (Miralax) 17 gm DAILYPRN PRN ORAL Constipation 03/10/17 21:30 04/09/17 21:29 Zinc Sulfate (Zinc Sulfate) 220 mg DAILY ORAL 03/10/17 09:00 04/09/17 08:59 03/17/17 09:31 ODETTE SMILEY March 17, 2017 12:43
--- NOTE | 2017-03-17 13:21 | Wound Care Consultation ---
Wound Assessment Wound Assessment : Wound Present on Admission: Yes New Wound: No Status Change of Wound: No Wound Location Body Site Modif: mid Wound Location Body Site: sacral Wound Type: pressure ulcer Francis Test: Does not Francis Pressure Ulcer Stage: IV/unstageable Wound Thickness: Full Thickness Wound Length: 9.0 Wound Width: 11.5 Wound Depth: utd Percent of Wound Bed Yellow/Wh: 10 Percent of Wound Black/Brown: 90 Wound Drainage Description: Serosanguineous Wound Drainage Amount: Scant Wound Drainage Odor: None/Absent Tissue Surrounding Wound: Macerated Wound General Appearance: Blackened, Draining, Necrotic Wound Comment #1 Sacral stage IV/unstageable pressure ulcer with 90% black necrotic tissue and 10% yellow slough from the last time we saw the pt. Called DR Hahn for possible debridement. awaiting for a call back at this time. Recommendation -Sacral pressure ulcer Cleanse with saline, pat dry, apply Santyl ointment on wound bed, cover with bordered gauze daily and PRN soiled/dislodged -Turn and reposition -Keep clean and dry -Low air loss mattress -Optimize nutrition -F/u with Dr Hahn for Possible debridement -Assess and f/u accordingly for any changes KENN GRACE RN March 17, 2017 13:21
[2017-03-17] MEDS: Meropenem 2 GM in NS 110 ML IVPB SCH ×2 (14:22→22:09)
--- NOTE | 2017-03-17 14:48 | Cardiac Electrophysiology PN ---
Assessment/Plan Assessment/Plan 1. Congestive heart failure with EF 30% and BNP of more than 3000. Hold Coreg 3.125 mg twice a day. Change Zestril to 5 bid. 2. Paroxysmal Atrial fibrillation. In sinus rhythm on Coreg, amiodarone, and Coumadin per pharmacy. 3. Status post pulseless electrical activity during transesophageal echocardiogram with no clear etiology at [facility]. Ruled out for myocardial infarction as well as pulmonary embolus. 4. S/P SJ ICD with normal function. Pacer/ICD will not pace if intrinsic heart rate more than 60. 5. VDRF Status post tracheostomy 6. Dysphagia, status post percutaneous endoscopic gastrostomy placement. 7. Anoxic encephalopathy. 8. Pneumonia, on broad-spectrum intravenous antibiotics DW RN Subjective Subjective On vent via tracheostomy.Nonverbal . No arrhythmias on tele. BP better now. Objective Last 24 Hour Vital Signs Date Time Temp Pulse Resp B/P Pulse Ox O2 Delivery O2 Flow Rate FiO2 03/17/17 12:52 92 22 40 03/17/17 12:00 98.6 91 25 107/57 100 Mechanical Ventilator 40 03/17/17 12:00 40 03/17/17 11:17 90 20 40 03/17/17 10:12 101 20 98 Mechanical Ventilator 03/17/17 09:58 94 21 98 Mechanical Ventilator 03/17/17 09:30 94 120/66 03/17/17 09:29 91 20 40 03/17/17 09:28 94 22 120/66 98 Mechanical Ventilator 40 03/17/17 09:00 99/63 03/17/17 08:09 93 03/17/17 08:00 98.1 93 23 99/63 98 Mechanical Ventilator 40 03/17/17 08:00 40 03/17/17 07:23 94 21 40 03/17/17 05:09 93 22 40 03/17/17 04:30 99.5 94 22 102/72 98 Mechanical Ventilator 03/17/17 04:00 40 03/17/17 03:57 93 03/17/17 02:47 92 23 40 03/17/17 01:02 95 22 40 03/17/17 00:00 40 03/16/17 23:57 98.8 95 24 110/69 97 03/16/17 23:53 93 03/16/17 23:04 90 22 40 03/16/17 21:45 98 21 98 Mechanical Ventilator 03/16/17 21:30 92 22 99 Mechanical Ventilator 03/16/17 21:00 100/62 03/16/17 20:41 88 21 40 03/16/17 20:00 40 03/16/17 20:00 99.1 88 21 100/62 99 03/16/17 19:43 88 03/16/17 19:33 89 21 40 03/16/17 16:50 92 27 40 03/16/17 16:02 88 03/16/17 16:00 40 03/16/17 16:00 98.1 89 20 91/55 98 Mechanical Ventilator 40 Intake and Output 03/16/17 03/17/17 19:00 07:00 Intake Total 1000 ml 800 ml Output Total 1000 ml 895 ml Balance 0 ml -95 ml Free Water 300 ml 200 ml Tube Feeding 600 ml 600 ml Other 100 ml Output Urine Total 1000 ml 895 ml # Bowel Movements 2 Laboratory Tests Test 03/17/17 04:15 03/17/17 11:55 White Blood Count 11.7 K/UL (4.8-10.8) H 12.7 K/UL (4.8-10.8) H Red Blood Count 4.07 M/UL (4.70-6.10) L 3.94 M/UL (4.70-6.10) L Hemoglobin 9.6 G/DL (14.2-18.0) L 9.2 G/DL (14.2-18.0) L Hematocrit 32.4 % (42.0-52.0) L 31.1 % (42.0-52.0) L Mean Corpuscular Volume 80 FL (80-99) 79 FL (80-99) L Mean Corpuscular Hemoglobin 23.7 PG (27.0-31.0) L 23.3 PG (27.0-31.0) L Mean Corpuscular Hemoglobin Concent 29.7 G/DL (32.0-36.0) L 29.5 G/DL (32.0-36.0) L Red Cell Distribution Width 20.7 % (11.6-14.8) H 20.4 % (11.6-14.8) H Platelet Count 723 K/UL (150-450) H 726 K/UL (150-450) H Mean Platelet Volume 5.7 FL (6.5-10.1) L 5.7 FL (6.5-10.1) L Neutrophils (%) (Auto) 75.9 % (45.0-75.0) H 74.0 % (45.0-75.0) Lymphocytes (%) (Auto) 14.0 % (20.0-45.0) L 13.3 % (20.0-45.0) L Monocytes (%) (Auto) 8.8 % (1.0-10.0) 11.6 % (1.0-10.0) H Eosinophils (%) (Auto) 0.7 % (0.0-3.0) 0.5 % (0.0-3.0) Basophils (%) (Auto) 0.6 % (0.0-2.0) 0.5 % (0.0-2.0) Sodium Level 144 mEQ/L (135-145) Potassium Level 4.5 mEQ/L (3.4-4.9) Chloride Level 106 mEQ/L (98-107) Carbon Dioxide Level 27 mEQ/L (20-30) Anion Gap 11 (5-15) Blood Urea Nitrogen 30 mg/dL (7-23) H Creatinine 0.6 mg/dL (0.7-1.2) L Estimat Glomerular Filtration Rate > 60 mL/min (>60) Glucose Level 137 mg/dL (74-106) H Calcium Level 9.3 mg/dL (8.6-10.2) Objective HEAD AND NECK: Shows no JVD. Status post tracheostomy CARDIOVASCULAR: Regular S1 and S2. No gallop or murmur. The defibrillator is in left subclavian. ABDOMEN: Soft. G-tube intact. EXTREMITIES: No pitting edema. DAMIR POOL March 17, 2017 14:48
[2017-03-17] MEDS: Lisinopril 2.5mg tab GT SCH (18:04)
[2017-03-18 00:57] VITALS: BP 100/64
[2017-03-18 04:00] VITALS: BP 102/57
[2017-03-18 04:47] LABS: BASOPHILS % (AUTO) 0.6 % (0.0-2.0); EOSINOPHILS % (AUTO) 0.5 % (0.0-3.0); LYMPHOCYTES % (AUTO) 15.7 % (20.0-45.0); MEAN CORPUSCULAR HEMOGLOBIN 23.5 PG (27.0-31.0); MEAN CORPUSCULAR HGB CONC 29.7 G/DL (32.0-36.0); MEAN CORPUSCULAR VOLUME 79 FL (80-99); MEAN PLATELET VOLUME 5.9 FL (6.5-10.1); MONOCYTES % (AUTO) 10.1 % (1.0-10.0); PLATELET COUNT 662 K/UL (150-450); RED BLOOD COUNT 4.16 M/UL (4.70-6.10); RED CELL DISTRIBUTION WIDTH 20.9 % (11.6-14.8); WHITE BLOOD COUNT 9.5 K/UL (4.8-10.8)
[2017-03-18 05:09] LABS: ALBUMIN/GLOBULIN RATIO 0.4 (1.0-2.7); ANION GAP 12 (5-15); ASPARTATE AMINO TRANSFERASE 722 U/L (5-40); CALCIUM 9.4 mg/dL (8.6-10.2); CARBON DIOXIDE 26 mEQ/L (20-30); CHLORIDE 109 mEQ/L (98-107); CREATININE 0.6 mg/dL (0.7-1.2); GLOMERULAR FILTRATION RATE > 60 mL/min (>60); HEMOLYSIS 0; POTASSIUM 4.9 mEQ/L (3.4-4.9); SODIUM 147 mEQ/L (135-145); TOTAL PROTEIN 8.2 g/dL (6.6-8.7)
[2017-03-18 05:21] LABS: ALANINE AMINOTRANSFERASE > 700 U/L (3-41)
[2017-03-18] MEDS: Meropenem 2 GM in NS 110 ML IVPB SCH ×2 (05:40→15:18)
[2017-03-18 08:00] VITALS: BP 90/58
[2017-03-18] MEDS: Colistin for inhalation INH SCH (08:54)
[2017-03-18] MEDS: Lisinopril 2.5mg tab GT SCH ×2 (09:00→18:00)
[2017-03-18] MEDS: Zinc Sulfate 220mg cap ORAL SCH (10:22)
[2017-03-18] MEDS: Amiodarone 200mg tab GT SCH (10:22)
[2017-03-18] MEDS: levETIRAcetam 500mg/5ml Liquid GT SCH (10:22)
--- NOTE | 2017-03-18 10:51 | Infectious Diseases Prog Note ---
Assessment/Plan Assessment/Plan A: 57-year-old male w low grade fever x 1 , SP Pneumonia Scx: Provid a+ XDR PSA and Providencia Chest x-ray: infiltrate in the right mid lung Sepsis, SP Leukocytosis, SP Fever, SP Transaminitis increased Hep C Ab + Abdominal ultrasound of liver : unremarkable Wound Cx :Colonizer History of cardiac arrest Anoxic encephalopathy Cardiomyopathy SP defibrillator placement Status post G-tube and tracheostomy Paroxysmal atrial fibrillation Hypertension P: cont Merrem and Colistin INH d# 6 / 14 ( 03/13 SP vancomycin and Zosyn d# 5 ) Monitor CBC Monitor CMP Monitor Cxray cont vent support Hep C PCR Subjective Allergies: Coded Allergies: No Known Allergies (Unverified , 03/07/17) Subjective afebrile Objective Vital Signs Last 24 Hour Vital Signs Date Time Temp Pulse Resp B/P Pulse Ox O2 Delivery O2 Flow Rate FiO2 03/18/17 09:04 99 21 100 Mechanical Ventilator 40 03/18/17 09:00 90/58 03/18/17 09:00 99 90/58 03/18/17 08:54 99 21 40 03/18/17 08:54 99 21 100 Mechanical Ventilator 40 03/18/17 08:32 40 03/18/17 08:00 99.3 98 22 90/58 100 Mechanical Ventilator 40 03/18/17 07:12 95 22 40 03/18/17 05:21 94 21 40 03/18/17 04:30 40 03/18/17 04:00 98.2 94 24 102/57 100 Mechanical Ventilator 40 03/18/17 03:31 96 03/18/17 02:30 95 23 40 03/18/17 00:57 98.3 95 23 100/64 98 Mechanical Ventilator 40 03/18/17 00:32 92 24 40 03/18/17 00:00 40 03/17/17 23:54 95 03/17/17 23:10 91 20 100 Mechanical Ventilator 40 03/17/17 22:51 93 25 100 Mechanical Ventilator 40 03/17/17 22:50 93 25 40 03/17/17 20:55 91 23 40 03/17/17 20:46 107/58 03/17/17 20:00 40 03/17/17 20:00 99.6 94 26 107/58 100 Mechanical Ventilator 40 94 03/17/17 19:44 94 03/17/17 19:22 92 25 40 03/17/17 18:04 108/68 03/17/17 17:58 87 22 108/68 100 Mechanical Ventilator 40 03/17/17 17:22 88 23 40 03/17/17 16:00 98.2 90 23 126/66 100 Mechanical Ventilator 40 03/17/17 16:00 40 03/17/17 15:54 93 03/17/17 15:17 90 21 40 03/17/17 12:52 92 22 40 03/17/17 12:00 98.6 91 25 107/57 100 Mechanical Ventilator 40 03/17/17 12:00 40 03/17/17 11:48 89 03/17/17 11:17 90 20 40 Height (Feet): 6 Height (Inches): 0.00 Weight (Pounds): 150 HEENT: anicteric Respiratory/Chest: no respiratory distress Cardiovascular: no gallop/murmur Abdomen: non distended Laboratory Tests Test 03/17/17 11:55 03/18/17 04:00 White Blood Count 12.7 K/UL (4.8-10.8) H 9.5 K/UL (4.8-10.8) Red Blood Count 3.94 M/UL (4.70-6.10) L 4.16 M/UL (4.70-6.10) L Hemoglobin 9.2 G/DL (14.2-18.0) L 9.8 G/DL (14.2-18.0) L Hematocrit 31.1 % (42.0-52.0) L 32.8 % (42.0-52.0) L Mean Corpuscular Volume 79 FL (80-99) L 79 FL (80-99) L Mean Corpuscular Hemoglobin 23.3 PG (27.0-31.0) L 23.5 PG (27.0-31.0) L Mean Corpuscular Hemoglobin Concent 29.5 G/DL (32.0-36.0) L 29.7 G/DL (32.0-36.0) L Red Cell Distribution Width 20.4 % (11.6-14.8) H 20.9 % (11.6-14.8) H Platelet Count 726 K/UL (150-450) H 662 K/UL (150-450) H Mean Platelet Volume 5.7 FL (6.5-10.1) L 5.9 FL (6.5-10.1) L Neutrophils (%) (Auto) 74.0 % (45.0-75.0) 73.0 % (45.0-75.0) Lymphocytes (%) (Auto) 13.3 % (20.0-45.0) L 15.7 % (20.0-45.0) L Monocytes (%) (Auto) 11.6 % (1.0-10.0) H 10.1 % (1.0-10.0) H Eosinophils (%) (Auto) 0.5 % (0.0-3.0) 0.5 % (0.0-3.0) Basophils (%) (Auto) 0.5 % (0.0-2.0) 0.6 % (0.0-2.0) Sodium Level 147 mEQ/L (135-145) H Potassium Level 4.9 mEQ/L (3.4-4.9) Chloride Level 109 mEQ/L (98-107) H Carbon Dioxide Level 26 mEQ/L (20-30) Anion Gap 12 (5-15) Blood Urea Nitrogen 34 mg/dL (7-23) H Creatinine 0.6 mg/dL (0.7-1.2) L Estimat Glomerular Filtration Rate > 60 mL/min (>60) Glucose Level 132 mg/dL (74-106) H Calcium Level 9.4 mg/dL (8.6-10.2) Total Bilirubin 0.3 mg/dL (0.0-1.2) Aspartate Amino Transf (AST/SGOT) 722 U/L (5-40) H Alanine Aminotransferase (ALT/SGPT) > 700 U/L (3-41) H Alkaline Phosphatase 258 U/L (40-129) H Total Protein 8.2 g/dL (6.6-8.7) Albumin 2.6 g/dL (3.5-5.2) L Globulin 5.6 g/dL Albumin/Globulin Ratio 0.4 (1.0-2.7) L Current Medications Medications (Trade) Dose Ordered Sig/Tameka Route PRN Reason Start Time Stop Time Status Last Admin Dose Admin Acetaminophen (Tylenol) 650 mg Q4H PRN NG Prn Headache/Temp > 101 03/10/17 00:15 04/09/17 00:14 03/13/17 08:41 Acetaminophen/ Hydrocodone Bitart ([place] 5/325) 1 tab Q4H PRN ORAL Moderate Pain (Pain Scale 4-6) 03/15/17 17:30 03/22/17 17:29 Amiodarone HCl (Cordarone) 200 mg DAILY GT 03/15/17 09:00 04/14/17 08:59 03/18/17 10:22 Carvedilol (Coreg) 3.125 mg Q12HR GT 03/14/17 21:00 04/13/17 20:59 03/17/17 09:30 Colistimethate Sodium (Colistin *inhalation use only*) 150 mg Q12HR@10,22 INH 03/13/17 12:00 03/26/17 23:59 03/18/17 08:54 Dextrose (Dextrose 50%) STAT PRN IV Hypoglycemia 03/10/17 21:30 04/09/17 21:29 Lansoprazole (Prevacid) 30 mg DAILY GT 03/13/17 09:00 04/12/17 08:59 03/18/17 10:22 Levetiracetam (Keppra) 500 mg Q12HR GT 03/10/17 09:00 04/09/17 08:59 03/18/17 10:22 Lisinopril (Zestril) 5 mg BID GT 03/17/17 18:00 04/16/17 17:59 03/17/17 18:04 Lorazepam (Ativan 2mg/ml 1ml) 2 mg Q2H PRN IV For Anxiety 03/15/17 17:30 03/22/17 17:29 Meropenem/Sodium Chloride (Merrem/Sodium Chloride) 110 ml @ 220 mls/hr Q8HR IVPB 03/17/17 14:00 03/26/17 23:59 03/18/17 05:40 Morphine Sulfate 4 mg 4 mg Q4H PRN IVP Severe Pain (Pain Scale 7-10) 03/15/17 17:30 03/22/17 17:29 Ondansetron HCl (Zofran) 4 mg Q6H PRN IVP Nausea & Vomiting 03/10/17 03:30 04/09/17 03:29 Polyethylene Glycol (Miralax) 17 gm DAILYPRN PRN ORAL Constipation 03/10/17 21:30 04/09/17 21:29 Zinc Sulfate (Zinc Sulfate) 220 mg DAILY ORAL 03/10/17 09:00 04/09/17 08:59 03/18/17 10:22 MARCUS PA M.D. March 18, 2017 10:51
[2017-03-18 12:00] VITALS: BP 90/58
--- NOTE | 2017-03-18 12:13 | Pulmonology Progress Note ---
Assessment/Plan Problems: (1) Respiratory distress (2) Chronic respiratory acidosis (3) Feeding by G-tube (4) CHF (congestive heart failure) (5) Pneumonia (6) EF of 30% Assessment/Plan improving watch wbc continue vent echo result noted, EF of 30 continue antibiotics Subjective ROS Limited/Unobtainable: No Constitutional: Reports: no symptoms HEENT: Repors: no symptoms Respiratory: Reports: no symptoms Cardiovascular: Reports: no symptoms Allergies: Coded Allergies: No Known Allergies (Unverified , 03/07/17) Objective Last 24 Hour Vital Signs Date Time Temp Pulse Resp B/P Pulse Ox O2 Delivery O2 Flow Rate FiO2 03/18/17 10:48 99 25 40 03/18/17 09:04 99 21 100 Mechanical Ventilator 40 03/18/17 09:00 90/58 03/18/17 09:00 99 90/58 03/18/17 08:54 99 21 40 03/18/17 08:54 99 21 100 Mechanical Ventilator 40 03/18/17 08:32 40 03/18/17 08:00 98 03/18/17 08:00 99.3 98 22 90/58 100 Mechanical Ventilator 40 03/18/17 07:12 95 22 40 03/18/17 05:21 94 21 40 03/18/17 04:30 40 03/18/17 04:00 98.2 94 24 102/57 100 Mechanical Ventilator 40 03/18/17 03:31 96 03/18/17 02:30 95 23 40 03/18/17 00:57 98.3 95 23 100/64 98 Mechanical Ventilator 40 03/18/17 00:32 92 24 40 03/18/17 00:00 40 03/17/17 23:54 95 03/17/17 23:10 91 20 100 Mechanical Ventilator 40 03/17/17 22:51 93 25 100 Mechanical Ventilator 40 03/17/17 22:50 93 25 40 03/17/17 20:55 91 23 40 03/17/17 20:46 107/58 03/17/17 20:00 40 03/17/17 20:00 99.6 94 26 107/58 100 Mechanical Ventilator 40 94 03/17/17 19:44 94 03/17/17 19:22 92 25 40 03/17/17 18:04 108/68 03/17/17 17:58 87 22 108/68 100 Mechanical Ventilator 40 03/17/17 17:22 88 23 40 03/17/17 16:00 98.2 90 23 126/66 100 Mechanical Ventilator 40 03/17/17 16:00 40 03/17/17 15:54 93 03/17/17 15:17 90 21 40 03/17/17 12:52 92 22 40 Intake and Output 03/17/17 03/18/17 19:00 07:00 Intake Total 800 ml 850 ml Output Total 600 ml 600 ml Balance 200 ml 250 ml Free Water 300 ml 200 ml Tube Feeding 500 ml 650 ml Output Urine Total 600 ml 600 ml # Bowel Movements 1 Objective General Appearance: WD/WN HEENT: normocephalic, atraumatic, trach in place Respiratory/Chest: chest wall non-tender, lungs rhonchi Cardiovascular: normal peripheral pulses, normal rate, regular rhythm Abdomen: normal bowel sounds, soft, non tender, no organomegaly, Gtube, sherrill in place Extremities: no cyanosis, no clubbing Skin: no rash, no lesions Laboratory Tests 03/18/17 04:00: White Blood Count 9.5, Red Blood Count 4.16L, Hemoglobin 9.8L, Hematocrit 32.8L , Mean Corpuscular Volume 79L, Mean Corpuscular Hemoglobin 23.5L, Mean Corpuscular Hemoglobin Concent 29.7L, Red Cell Distribution Width 20.9H, Platelet Count 662H, Mean Platelet Volume 5.9L, Neutrophils (%) (Auto) 73.0, Lymphocytes (%) (Auto) 15.7L, Monocytes (%) (Auto) 10.1H, Eosinophils (%) (Auto ) 0.5, Basophils (%) (Auto) 0.6, Sodium Level 147H, Potassium Level 4.9, Chloride Level 109H, Carbon Dioxide Level 26, Anion Gap 12, Blood Urea Nitrogen 34H, Creatinine 0.6L, Estimat Glomerular Filtration Rate > 60, Glucose Level 132H, Calcium Level 9.4, Total Bilirubin 0.3, Aspartate Amino Transf (AST/SGOT) 722H, Alanine Aminotransferase (ALT/SGPT) > 700H, Alkaline Phosphatase 258H, Total Protein 8.2, Albumin 2.6L, Globulin 5.6, Albumin/Globulin Ratio 0.4L Current Medications Medications (Trade) Dose Ordered Sig/Tameka Route PRN Reason Start Time Stop Time Status Last Admin Dose Admin Acetaminophen (Tylenol) 650 mg Q4H PRN NG Prn Headache/Temp > 101 03/10/17 00:15 04/09/17 00:14 03/13/17 08:41 Acetaminophen/ Hydrocodone Bitart ([place] 5/325) 1 tab Q4H PRN ORAL Moderate Pain (Pain Scale 4-6) 03/15/17 17:30 03/22/17 17:29 Amiodarone HCl (Cordarone) 200 mg DAILY GT 03/15/17 09:00 04/14/17 08:59 03/18/17 10:22 Carvedilol (Coreg) 3.125 mg Q12HR GT 03/14/17 21:00 04/13/17 20:59 03/17/17 09:30 Colistimethate Sodium (Colistin *inhalation use only*) 150 mg Q12HR@10,22 INH 03/13/17 12:00 03/26/17 23:59 03/18/17 08:54 Dextrose (Dextrose 50%) STAT PRN IV Hypoglycemia 03/10/17 21:30 04/09/17 21:29 Lansoprazole (Prevacid) 30 mg DAILY GT 03/13/17 09:00 04/12/17 08:59 03/18/17 10:22 Levetiracetam (Keppra) 500 mg Q12HR GT 03/10/17 09:00 04/09/17 08:59 03/18/17 10:22 Lisinopril (Zestril) 5 mg BID GT 03/17/17 18:00 04/16/17 17:59 03/17/17 18:04 Lorazepam (Ativan 2mg/ml 1ml) 2 mg Q2H PRN IV For Anxiety 03/15/17 17:30 03/22/17 17:29 Meropenem/Sodium Chloride (Merrem/Sodium Chloride) 110 ml @ 220 mls/hr Q8HR IVPB 03/17/17 14:00 03/26/17 23:59 03/18/17 05:40 Morphine Sulfate 4 mg 4 mg Q4H PRN IVP Severe Pain (Pain Scale 7-10) 03/15/17 17:30 03/22/17 17:29 Ondansetron HCl (Zofran) 4 mg Q6H PRN IVP Nausea & Vomiting 03/10/17 03:30 04/09/17 03:29 Polyethylene Glycol (Miralax) 17 gm DAILYPRN PRN ORAL Constipation 03/10/17 21:30 04/09/17 21:29 Zinc Sulfate (Zinc Sulfate) 220 mg DAILY ORAL 03/10/17 09:00 04/09/17 08:59 03/18/17 10:22 ODETTE SMILEY March 18, 2017 12:13
--- NOTE | 2017-03-18 15:24 | Cardiac Electrophysiology PN ---
Assessment/Plan Assessment/Plan 1. Congestive heart failure with EF 30% and BNP of more than 3000. On Coreg 3.125 mg bid and Zestril 5 bid. Off diuretics for low BP. 2. Paroxysmal Atrial fibrillation. In sinus rhythm on Coreg and amiodarone.Resume Coumadin. 3. Status post pulseless electrical activity during transesophageal echocardiogram with no clear etiology at [facility]. Ruled out for myocardial infarction as well as pulmonary embolus. 4. S/P SJ ICD with normal function. 5. VDRF Status post tracheostomy 6. Dysphagia, status post percutaneous endoscopic gastrostomy placement. 7. Anoxic encephalopathy. 8. Pneumonia, on broad-spectrum intravenous antibiotics 9. Anemia. Stool OB negative. DW RN Subjective Subjective On vent via tracheostomy.Nonverbal . No arrhythmias on tele. Eyes open and at times tracking. Objective Last 24 Hour Vital Signs Date Time Temp Pulse Resp B/P Pulse Ox O2 Delivery O2 Flow Rate FiO2 03/18/17 12:40 117 29 40 03/18/17 12:00 40 03/18/17 12:00 100.9 103 21 90/58 100 Mechanical Ventilator 40 03/18/17 12:00 101 03/18/17 10:48 99 25 40 03/18/17 09:04 99 21 100 Mechanical Ventilator 40 03/18/17 09:00 90/58 03/18/17 09:00 99 90/58 03/18/17 08:54 99 21 40 03/18/17 08:54 99 21 100 Mechanical Ventilator 40 03/18/17 08:32 40 03/18/17 08:00 98 03/18/17 08:00 99.3 98 22 90/58 100 Mechanical Ventilator 40 03/18/17 07:12 95 22 40 03/18/17 05:21 94 21 40 03/18/17 04:30 40 03/18/17 04:00 98.2 94 24 102/57 100 Mechanical Ventilator 40 03/18/17 03:31 96 03/18/17 02:30 95 23 40 03/18/17 00:57 98.3 95 23 100/64 98 Mechanical Ventilator 40 03/18/17 00:32 92 24 40 03/18/17 00:00 40 03/17/17 23:54 95 03/17/17 23:10 91 20 100 Mechanical Ventilator 40 03/17/17 22:51 93 25 100 Mechanical Ventilator 40 03/17/17 22:50 93 25 40 03/17/17 20:55 91 23 40 03/17/17 20:46 107/58 03/17/17 20:00 40 03/17/17 20:00 99.6 94 26 107/58 100 Mechanical Ventilator 40 94 03/17/17 19:44 94 03/17/17 19:22 92 25 40 03/17/17 18:04 108/68 03/17/17 17:58 87 22 108/68 100 Mechanical Ventilator 40 03/17/17 17:22 88 23 40 03/17/17 16:00 98.2 90 23 126/66 100 Mechanical Ventilator 40 03/17/17 16:00 40 03/17/17 15:54 93 03/17/17 15:17 90 21 40 Intake and Output 03/17/17 03/18/17 19:00 07:00 Intake Total 800 ml 850 ml Output Total 600 ml 600 ml Balance 200 ml 250 ml Free Water 300 ml 200 ml Tube Feeding 500 ml 650 ml Output Urine Total 600 ml 600 ml # Bowel Movements 1 Laboratory Tests Test 03/18/17 04:00 White Blood Count 9.5 K/UL (4.8-10.8) Red Blood Count 4.16 M/UL (4.70-6.10) L Hemoglobin 9.8 G/DL (14.2-18.0) L Hematocrit 32.8 % (42.0-52.0) L Mean Corpuscular Volume 79 FL (80-99) L Mean Corpuscular Hemoglobin 23.5 PG (27.0-31.0) L Mean Corpuscular Hemoglobin Concent 29.7 G/DL (32.0-36.0) L Red Cell Distribution Width 20.9 % (11.6-14.8) H Platelet Count 662 K/UL (150-450) H Mean Platelet Volume 5.9 FL (6.5-10.1) L Neutrophils (%) (Auto) 73.0 % (45.0-75.0) Lymphocytes (%) (Auto) 15.7 % (20.0-45.0) L Monocytes (%) (Auto) 10.1 % (1.0-10.0) H Eosinophils (%) (Auto) 0.5 % (0.0-3.0) Basophils (%) (Auto) 0.6 % (0.0-2.0) Sodium Level 147 mEQ/L (135-145) H Potassium Level 4.9 mEQ/L (3.4-4.9) Chloride Level 109 mEQ/L (98-107) H Carbon Dioxide Level 26 mEQ/L (20-30) Anion Gap 12 (5-15) Blood Urea Nitrogen 34 mg/dL (7-23) H Creatinine 0.6 mg/dL (0.7-1.2) L Estimat Glomerular Filtration Rate > 60 mL/min (>60) Glucose Level 132 mg/dL (74-106) H Calcium Level 9.4 mg/dL (8.6-10.2) Total Bilirubin 0.3 mg/dL (0.0-1.2) Aspartate Amino Transf (AST/SGOT) 722 U/L (5-40) H Alanine Aminotransferase (ALT/SGPT) > 700 U/L (3-41) H Alkaline Phosphatase 258 U/L (40-129) H Total Protein 8.2 g/dL (6.6-8.7) Albumin 2.6 g/dL (3.5-5.2) L Globulin 5.6 g/dL Albumin/Globulin Ratio 0.4 (1.0-2.7) L Objective HEAD AND NECK: Shows no JVD. Status post tracheostomy CARDIOVASCULAR: Regular S1 and S2. The defibrillator is in left subclavian. ABDOMEN: Soft. G-tube intact. EXTREMITIES: No pitting edema. DAMIR POOL March 18, 2017 15:24
--- NOTE | 2017-03-18 15:31 | GI Progress Note ---
Assessment/Plan Problems: (1) Anemia ICD Codes: D64.9 - Anemia, unspecified SNOMED: 912958203 (2) Feeding by G-tube ICD Codes: Z93.1 - Gastrostomy status SNOMED: 079192811, 022564734 (3) Leukocytosis ICD Codes: D72.829 - Elevated white blood cell count, unspecified SNOMED: 535016040, 625977913 (4) Transaminitis ICD Codes: R74.0 - Nonspecific elevation of levels of transaminase and lactic acid dehydrogenase [LDH] SNOMED: 510907687 Status: unchanged Status Narrative Discussed with Dr. Alex. Assessment/Plan iron deficient >> venofer elevated CEA >> 7.4 AFP >> WNL abd U/S reviewed >> unremarkable Hep C positive OB negative elevated transaminase today, repeat amlabs monitor H&H, transfuse prn GTFs per dietary GT site care daily/prn monitor LFTs ppi fu labs Subjective Subjective limited Objective Last 24 Hour Vital Signs Date Time Temp Pulse Resp B/P Pulse Ox O2 Delivery O2 Flow Rate FiO2 03/18/17 14:39 105 20 40 03/18/17 12:40 117 29 40 03/18/17 12:00 40 03/18/17 12:00 100.9 103 21 90/58 100 Mechanical Ventilator 40 03/18/17 12:00 101 03/18/17 10:48 99 25 40 03/18/17 09:04 99 21 100 Mechanical Ventilator 40 03/18/17 09:00 90/58 03/18/17 09:00 99 90/58 03/18/17 08:54 99 21 40 03/18/17 08:54 99 21 100 Mechanical Ventilator 40 03/18/17 08:32 40 03/18/17 08:00 98 03/18/17 08:00 99.3 98 22 90/58 100 Mechanical Ventilator 40 03/18/17 07:12 95 22 40 03/18/17 05:21 94 21 40 03/18/17 04:30 40 03/18/17 04:00 98.2 94 24 102/57 100 Mechanical Ventilator 40 03/18/17 03:31 96 03/18/17 02:30 95 23 40 03/18/17 00:57 98.3 95 23 100/64 98 Mechanical Ventilator 40 03/18/17 00:32 92 24 40 03/18/17 00:00 40 03/17/17 23:54 95 03/17/17 23:10 91 20 100 Mechanical Ventilator 40 03/17/17 22:51 93 25 100 Mechanical Ventilator 40 03/17/17 22:50 93 25 40 03/17/17 20:55 91 23 40 03/17/17 20:46 107/58 03/17/17 20:00 40 03/17/17 20:00 99.6 94 26 107/58 100 Mechanical Ventilator 40 94 03/17/17 19:44 94 03/17/17 19:22 92 25 40 03/17/17 18:04 108/68 03/17/17 17:58 87 22 108/68 100 Mechanical Ventilator 40 03/17/17 17:22 88 23 40 03/17/17 16:00 98.2 90 23 126/66 100 Mechanical Ventilator 40 03/17/17 16:00 40 03/17/17 15:54 93 Intake and Output 03/17/17 03/18/17 19:00 07:00 Intake Total 800 ml 850 ml Output Total 600 ml 600 ml Balance 200 ml 250 ml Free Water 300 ml 200 ml Tube Feeding 500 ml 650 ml Output Urine Total 600 ml 600 ml # Bowel Movements 1 Laboratory Tests Test 03/18/17 04:00 White Blood Count 9.5 K/UL (4.8-10.8) Red Blood Count 4.16 M/UL (4.70-6.10) L Hemoglobin 9.8 G/DL (14.2-18.0) L Hematocrit 32.8 % (42.0-52.0) L Mean Corpuscular Volume 79 FL (80-99) L Mean Corpuscular Hemoglobin 23.5 PG (27.0-31.0) L Mean Corpuscular Hemoglobin Concent 29.7 G/DL (32.0-36.0) L Red Cell Distribution Width 20.9 % (11.6-14.8) H Platelet Count 662 K/UL (150-450) H Mean Platelet Volume 5.9 FL (6.5-10.1) L Neutrophils (%) (Auto) 73.0 % (45.0-75.0) Lymphocytes (%) (Auto) 15.7 % (20.0-45.0) L Monocytes (%) (Auto) 10.1 % (1.0-10.0) H Eosinophils (%) (Auto) 0.5 % (0.0-3.0) Basophils (%) (Auto) 0.6 % (0.0-2.0) Sodium Level 147 mEQ/L (135-145) H Potassium Level 4.9 mEQ/L (3.4-4.9) Chloride Level 109 mEQ/L (98-107) H Carbon Dioxide Level 26 mEQ/L (20-30) Anion Gap 12 (5-15) Blood Urea Nitrogen 34 mg/dL (7-23) H Creatinine 0.6 mg/dL (0.7-1.2) L Estimat Glomerular Filtration Rate > 60 mL/min (>60) Glucose Level 132 mg/dL (74-106) H Calcium Level 9.4 mg/dL (8.6-10.2) Total Bilirubin 0.3 mg/dL (0.0-1.2) Aspartate Amino Transf (AST/SGOT) 722 U/L (5-40) H Alanine Aminotransferase (ALT/SGPT) > 700 U/L (3-41) H Alkaline Phosphatase 258 U/L (40-129) H Total Protein 8.2 g/dL (6.6-8.7) Albumin 2.6 g/dL (3.5-5.2) L Globulin 5.6 g/dL Albumin/Globulin Ratio 0.4 (1.0-2.7) L Height (Feet): 6 Height (Inches): 0.00 Weight (Pounds): 150 General Appearance: no apparent distress, alert Cardiovascular: normal rate Respiratory/Chest: other - [facility] vent Abdominal Exam: GT site - c/d/i, sutures detached. Lani Last N.P. March 18, 2017 15:31
[2017-03-18 16:00] VITALS: BP 94/64
[2017-03-18] MEDS ORDERED: Tubing IV Secondary IV ONE (17:53)
[2017-03-18] MEDS ORDERED: NS 275ml ONE (17:53)
[2017-03-18] MEDS ORDERED: NS Irrig 1000ml ONE (17:53)
[2017-03-18 18:00] VITALS: BP 94/64
[2017-03-18 19:12] LABS: INR 1.3 (0.9-1.1)
[2017-03-18] MEDS ORDERED: Warfarin Sodium 3mg ORAL SCH (21:00)
== END 2017-03-18 21:05 | DRG 720 ==
LOC: EDBD 16:36 → EMR 16:56 → EDBEDREQ 18:08 → 2W 18:16 → EDBEDREQ 20:33 → 2W 03-08 07:09 → UNDOADMIN 03-08 07:09 → 2E 03-08 20:41 → 2W 03-09 22:25
PROC: 5A1955Z Respiratory Ventilation, Greater than 96 Consecutive Hours (ICD-10-PCS; principal; 2017-03-09)
DX: A41.9 Sepsis, unspecified organism (principal); J96.21 Acute and chronic respiratory failure with hypoxia; Z99.11 Dependence on respirator [ventilator] status; J15.1 Pneumonia due to Pseudomonas; Z93.0 Tracheostomy status; G93.1 Anoxic brain damage, not elsewhere classified; L89.154 Pressure ulcer of sacral region, stage 4; I48.0 Paroxysmal atrial fibrillation; Z93.1 Gastrostomy status; Z95.810 Presence of automatic (implantable) cardiac defibrillator; D64.9 Anemia, unspecified; I11.0 Hypertensive heart disease with heart failure; I50.20 Unspecified systolic (congestive) heart failure; I25.10 Atherosclerotic heart disease of native coronary artery without angina pectoris; R13.10 Dysphagia, unspecified; R74.0 Nonspecific elevation of levels of transaminase and lactic acid dehydrogenase [LDH]; G40.909 Epilepsy, unspecified, not intractable, without status epilepticus; B19.20 Unspecified viral hepatitis C without hepatic coma; Z86.74 Personal history of sudden cardiac arrest; I42.9 Cardiomyopathy, unspecified
CPT/HCPCS: 36415; 36600; 71010; 76700; 80048; 80053; 80069; 80202; 81003; 82105; 82270; 82378; 82550; 82553; 82607; 82728; 82746; 82803; 82962; 83540; 83550; 83605; 83880; 84439; 84443; 84484; 85007; 85025; 85044; 85610; 85730; 86705; 86709; 86803; 87040; 87070; 87081; 87181; 87205; 87340; 93005; 93306; 93970; 94002; 94003; 94640; 94664; 94760

== ENCOUNTER 2017-05-10 17:07 | Inpatient (IN) | payer OTHER ==
[~2017-05-10] VITALS: Ht 170.2 cm; Wt 57.3 kg
[~2017-05-10 17:07] MED LIST: ACETAMINOP160 MG/51 GT; AMIODARONE HCL100 MG GT; ASPIR 8181 MG GT; CARVEDILOL6.25 MG GT; COLISTIN150 MG INH; COREG3.125 MG GT; COUMADIN7.5 MG GT; DOCUSATE SODIU100 MG ORAL; DOCUSIL100 M1 GT; FUROSEMIDE40 MG GT; KEPPRA XR500 MG GT; LACTULOSE20 GM/301 ORAL; LEVETIRACE100 MG/1 M GT; LISINOPRIL10 MG ORAL; MERREM1 GM IV; MULTI-DELYN237 ML GT; NORCO 5-325 TA1 EACH ORAL; OMEPRAZOLE40 M1 ORAL; Piperacillin/Tazobactam 3.375 GM in NS 110 ML IVPB SCH; SPIRONOLACTONE25 MG ORAL; VANCOMYCIN1 GM/2502 IVPB; VITAMIN C500 M1 ORAL; ZINC SULFATE220 M1 ORAL; ZOFRAN 4 MG4 MG/2 ML IM
[2017-05-10] MEDS ORDERED: CEFEPIME-D2 GM/50 ML IVPB (17:33)
[2017-05-10] MEDS ORDERED: VANCOMYCIN1 GM/2502 IVPB (17:34)
[2017-05-10] MEDS ORDERED: MACRODANTIN50 MG GT (17:35)
[2017-05-10] MEDS ORDERED: PREVACID30 MG GT (17:36)
[2017-05-10] MEDS ORDERED: TRAMADOL HCL50 MG GT (17:37)
[2017-05-10] MEDS ORDERED: ZOFRAN4 M3 GT (17:38)
[2017-05-10 17:41] VITALS: BP 100/71
[2017-05-10] MEDS ORDERED: CLONIDINE HCL0.1 MG PO (17:46)
[2017-05-10 17:56] LABS: MEAN CORPUSCULAR HEMOGLOBIN 26.2 PG (27.0-31.0); MEAN CORPUSCULAR HGB CONC 32.1 G/DL (32.0-36.0); MEAN CORPUSCULAR VOLUME 82 FL (80-99); MEAN PLATELET VOLUME 5.8 FL (6.5-10.1); PLATELET COUNT 394 K/UL (150-450); RED BLOOD COUNT 2.49 M/UL (4.70-6.10); RED CELL DISTRIBUTION WIDTH 18.1 % (11.6-14.8); WHITE BLOOD COUNT 14.6 K/UL (4.8-10.8)
[2017-05-10] MEDS ORDERED: LORAZEPAM1 MG GT (17:58)
--- NOTE | 2017-05-10 17:58 | Emergency Room Report ---
History of Present Illness General Chief Complaint: General Complaint Source: EMS Present Illness HPI 57YOM BIBEMS from SNF for "tachycardia" to 140s. Patient aphasic. Not providing additional HPI. No other info from SNF, EMS. All info I could obtain was from EMR: - Chronic respiratory failure on trach and PEG - Severe cardiomyopathy, HTN, defibrillator - EF 30-35% - PAF, Hep C, - wound culture showed Proteus ESBL and KPC. Sputum culture showed growth of Pseudomonas MDR Providencia and Acinetobacter. Vancomycin and Zosyn were discontinued and was given Merrem and inhaled colistin. Allergies: Coded Allergies: No Known Allergies (Unverified , 03/07/17) Patient History Past Medical History: other - see my HPI Past Surgical History: unable to obtain Pertinent Family History: unable to obtain Social History: Denies: alcohol use, drug use, smoking Immunizations: UTD Reviewed Nursing Documentation: PMH: Agreed, PSxH: Agreed Nursing Documentation-PMH Hx Hypertension: Yes - HEP C Hx Pacemaker: Yes Hx Diabetes: No Hx Cancer: No Hx Gastrointestinal Problems: Yes - G-TUBE Hx Neurological Problems: Yes Hx Cerebrovascular Accident: Yes Hx Seizures: Yes Review of Systems All Other Systems: limited - aphasic Physical Exam Vital Signs Date Time Temp Pulse Resp B/P Pulse Ox O2 Delivery O2 Flow Rate FiO2 05/10/17 16:56 120 18 102/68 100 Mechanical Ventilator 5.0 05/10/17 17:41 99.5 40 Sp02 EP Interpretation: reviewed, abnormal General Appearance: normal inspection, well appearing, no apparent distress, alert, GCS 15, non-toxic Head: normocephalic, atraumatic Eyes: bilateral eye EOMI, bilateral eye PERRL ENT: normal ENT inspection, hearing grossly normal, normal voice Neck: normal inspection, full range of motion, supple, no bony tend Respiratory: normal inspection, lungs clear, normal breath sounds, no respiratory distress, no retraction, no wheezing Cardiovascular #1: regular rate, rhythm, no edema, tachycardia Gastrointestinal: normal inspection, normal bowel sounds, non tender, soft, no guarding, no hernia Genitourinary: no CVA tenderness Musculoskeletal: normal inspection, back normal, normal range of motion, Cesia' s Sign negative, other - contracted extremities Neurologic: normal inspection, alert, responsive, personnel director III-XII nml as tested, motor strength/tone normal, speech normal Psychiatric: normal inspection, judgement/insight normal, mood/affect normal Skin: normal inspection, normal color, no rash Medical Decision Making Diagnostic Impression: Primary Impression: Tachycardia Additional Impressions: Anemia Qualified Codes: D64.9 - Anemia, unspecified Right pulmonary infiltrate on CXR ER Course Tachycardia Afebrile. Normotensive. Connected to Vent - no air leak or plug. CXR with ?worsening right airspace infiltrate vs previously seen interstitial disease Hb 6.5 2U RBCs transfused in ED Abx given. Was on Merrem per ID on recent admission. Blood Cx were negative. Will give dose of Merrem here Blood, Urine Cx pending Endorsed to Dr Moses for LIG[facility] admission at 610pm EKG Diagnostic Results Rate: tachycardiac, other - PVCs Rhythm: other ST Segments: no acute changes ASA given to the pt in ED: No Rhythm Strip Diag. Results EP Interpretation: yes Rate: 114 Rhythm: NSR, other - Multiple PVCs Chest X-Ray Diagnostic Results Chest X-Ray Ordered: Yes # of Views/Limited/Complete: 1 View EP Interpretation: Yes Interpretation: no effusion, no pneumothorax, no acute cardiopulmonary disease , other - Right infiltrate? Indication: Other - tachycardia Interpreting ER Provider: Nusrat Last Vital Signs Date Time Temp Pulse Resp B/P Pulse Ox O2 Delivery O2 Flow Rate FiO2 05/10/17 17:43 40 05/10/17 17:41 99.5 112 26 100/71 100 Mechanical Ventilator 05/10/17 16:56 5.0 Status: improved Disposition: ADMITTED INPATIENT Condition: Serious KORTNEY LOU M.D. May 10, 2017 17:58
[2017-05-10] MEDS ORDERED: ALBUTEROL2.5 MG/0.1 IH (17:59)
[2017-05-10] MEDS ORDERED: LORazepam Inj 2mg/ml 1ml IV PRN (18:15)
[2017-05-10] MEDS ORDERED: Miralax 17gm pkt ORAL PRN (18:15)
[2017-05-10] MEDS ORDERED: DuoNeb 0.5-3(2.5)mg/3ml neb HHN PRN (18:15)
[2017-05-10] MEDS ORDERED: Meropenem 1 GM in NS 110 ML IVPB ONE (18:15)
[2017-05-10 18:26] LABS: TROPONIN I < 0.30 ng/mL (<=0.30)
[2017-05-10 18:30] LABS: ALANINE AMINOTRANSFERASE 14 U/L (3-41); ALBUMIN/GLOBULIN RATIO 0.4 (1.0-2.7); ANION GAP 12 (5-15); ASPARTATE AMINO TRANSFERASE 17 U/L (5-40); CALCIUM 8.5 mg/dL (8.6-10.2); CARBON DIOXIDE 26 mEQ/L (20-30); CHLORIDE 94 mEQ/L (98-107); CREATININE 0.4 mg/dL (0.7-1.2); GLOMERULAR FILTRATION RATE > 60 mL/min (>60); HEMOLYSIS 6; POTASSIUM 3.9 mEQ/L (3.4-4.9); SODIUM 132 mEQ/L (135-145); TOTAL PROTEIN 6.6 g/dL (6.6-8.7)
[2017-05-10 18:40] LABS: CKMB 2.4 ng/mL (< 6.7)
[2017-05-10] MEDS ORDERED: Meropenem 1gm vial ONE (18:44)
[2017-05-10 18:47] LABS: HEMOLYSIS 27; IRON 24 ug/dL (59-158); TOTAL IRON BINDING CAPACITY 132 ug/dL (250-400)
[2017-05-10 19:00] VITALS: BP 113/75
[2017-05-10 19:22] LABS: ANISOCYTOSIS 1+; EOSINOPHILS % (MANUAL) 1 % (0-3); HYPOCHROMASIA 1+; LYMPHOCYTES % (MANUAL) 15 % (20-45); NEUTROPHILS % (MANUAL) 76 % (45-75); OVALOCYTES 1+; TOTAL CELLS COUNTED 100
[2017-05-10 19:23] LABS: BAND NEUTROPHILS % (MANUAL) 0 % (0-8); BASOPHILS % (MANUAL) 0 % (0-2); PLATELET ESTIMATE ADEQUATE; PLATELET MORPHOLOGY NORMAL
[2017-05-10 21:00] VITALS: BP 115/75
[2017-05-10] MEDS ORDERED: Vancomycin 1250mg/D5W 275ml IVPB SCH ×2 (21:00)
[2017-05-10 21:30] VITALS: BP 110/73
[2017-05-10] MEDS: levETIRAcetam 500mg/5ml Liquid GT SCH (21:45)
[2017-05-10] MEDS ORDERED: Vancomycin 1 GM in D5W 275 ML IV SCH (23:00)
[2017-05-11] VITALS: BP 122/84
[2017-05-11] MEDS ORDERED: Vancomycin 1250mg/D5W 275ml IVPB SCH ×2 (06:15)
[2017-05-11] MEDS: Piperacillin/Tazobactam 3.375 GM in NS 110 ML IVPB SCH ×3 (06:25→22:27)
[2017-05-11 08:00] VITALS: BP 111/71
[2017-05-11] MEDS ORDERED: Lactulose 20gm/30ml UDC ORAL SCH (09:00)
[2017-05-11] MEDS: Spironolactone 25mg tab ORAL SCH (09:14)
[2017-05-11] MEDS: levETIRAcetam 500mg/5ml Liquid GT SCH ×2 (09:14→20:36)
[2017-05-11] MEDS: Amiodarone 200mg tab GT SCH (09:14)
--- NOTE | 2017-05-11 09:46 | Consultation ---
Consult Note Consult Note ID CONSULT: Dict# [id number] Assessment/Plan ASSESSMENT: 57 y/o male with: // Possible HCAP / VAP - SCx pending - CXR: pending - h/o Provid a+ XDR PSA and Providencia // Stage IV sacral decubitus, not grossly infected - surveillance WCx pending - h/o polymicrobial MDR colonization // HCV Ab+ - Abdominal ultrasound of liver : unremarkable // Possible sepsis // Leukocytosis // Low grade fever x1 Severe anemia - Hgb 6.5 Sinus tachycardia Chronic VDRF SP trach, PEG h/o cardiac arrest, anoxic encephalopathy Cardiomyopathy SP defibrillator placement Paroxysmal atrial fibrillation Cachexia / severe protein-calorie malnutrition [place] resident NKDA Full Code PLAN: continue empiric IV vancomycin, zosyn d# 2 ( SP Merrem and Colistin INH d# / ) ( 03/13 SP vancomycin and Zosyn d# 5 ) GI eval, transfuse prn f/u cultures Monitor CBC, temperatures Monitor CMP Monitor CXR vent support, trach care, aspiration precautions wound care Thanks! Will follow ROXANNE BELLO May 11, 2017 09:46
[2017-05-11] MEDS ORDERED: Tubing IV Secondary IV ONE ×2 (10:01→18:53)
[2017-05-11] MEDS ORDERED: 1/2 NS 1000ml IV ONE ×2 (10:01→18:53)
[2017-05-11] MEDS ORDERED: NS 275ml ONE ×2 (10:01→18:53)
--- NOTE | 2017-05-11 10:59 | Diagnostic Imaging Report ---
Indications: Chest pain Technique: Portable AP chest Findings: Comparison: 03/17/2017 Decreased. Linear and hazy opacities in right lung base have increased. Visualized portions of left lung remain grossly clear. Cardiac silhouette remains enlarged. Pulmonary vasculature remains within normal limits. No pleural abnormalities detected. Tracheostomy tube, pacemaker, the gastric tubular structure all again noted. IMPRESSION: Worsening atelectasis versus pneumonia right lung base No other change
[2017-05-11 11:53] LABS: BASOPHILS % (AUTO) 0.5 % (0.0-2.0); EOSINOPHILS % (AUTO) 1.5 % (0.0-3.0); LYMPHOCYTES % (AUTO) 12.7 % (20.0-45.0); MEAN CORPUSCULAR HEMOGLOBIN 27.1 PG (27.0-31.0); MEAN CORPUSCULAR VOLUME 85 FL (80-99); MEAN PLATELET VOLUME 5.7 FL (6.5-10.1); MONOCYTES % (AUTO) 6.5 % (1.0-10.0); NEUTROPHILS % (AUTO) 78.8 % (45.0-75.0); PLATELET COUNT 376 K/UL (150-450); RED BLOOD COUNT 3.81 M/UL (4.70-6.10); RED CELL DISTRIBUTION WIDTH 16.9 % (11.6-14.8); WHITE BLOOD COUNT 11.9 K/UL (4.8-10.8)
[2017-05-11 12:00] VITALS: BP 96/68
[2017-05-11 12:40] LABS: ANION GAP 15 (5-15); CALCIUM 8.7 mg/dL (8.6-10.2); CARBON DIOXIDE 24 mEQ/L (20-30); CHLORIDE 95 mEQ/L (98-107); CREATININE 0.4 mg/dL (0.7-1.2); GLOMERULAR FILTRATION RATE > 60 mL/min (>60); HEMOLYSIS 1; PHOSPHORUS 2.1 mg/dL (2.5-4.8); POTASSIUM 3.5 mEQ/L (3.4-4.9); SODIUM 134 mEQ/L (135-145)
--- NOTE | 2017-05-11 12:41 | History and Physical ---
History of Present Illness General Date patient seen: May 11, 2017 Reason for Hospitalization: General Complaint Present Illness HPI 57year old male with hx Chronic respiratory failure on trach and PEG, Severe cardiomyopathy, HTN, defibrillator, EF 30-35%, PAF, Hep C, brought in by content manager from SNF for "tachycardia" to 140s. Patient aphasic. Not providing additional HPI. No other info from SNF, EMS. Pt was found to be anemic and septic and admitted to [facility] for further evaluation. Allergies: Coded Allergies: No Known Allergies (Unverified , 03/07/17) Medication History Scheduled Amiodarone Hcl (Amiodarone Hcl), 200 MG GT DAILY, (Reported) Ascorbic Acid* (Vitamin C*), 500 MG ORAL DAILY, (Reported) Aspirin* (Aspir 81*), 81 MG GT DAILY, (Reported) Carvedilol (Coreg), 3.125 MG GT Q12HR Carvedilol* (Carvedilol*), 6.25 MG GT BID, (Reported) Cefepime Hcl/D5w (Cefepime-Dextrose 2 Gm/50 Ml), 2 GM IVPB EVERY 12 HOURS, ( Reported) Clonidine Hcl (Clonidine Hcl), 0.1 MG PO Q6HR, (Reported) Colistimethate Sodium (Colistin), 150 MG INH Q12HR@10,22 Docusate Sodium* (Docusate Sodium*), 100 MG ORAL TWICE A DAY, (Reported) Furosemide* (Lasix*), 60 MG GT DAILY, (Reported) Lansoprazole* (Prevacid*), 30 MG GT DAILY, (Reported) Levetiracetam* (Levetiracetam*), 500 MG GT BID, (Reported) Lisinopril* (Lisinopril*), 10 MG ORAL DAILY, (Reported) Lorazepam* (Lorazepam*), 1 MG GT THREE TIMES A DAY, (Reported) Meropenem (Merrem), 1 GM IV EVERY 8 HOURS Multivitamin Liquid* (Multi-Delyn*), 5 ML GT DAILY, (Reported) Nitrofurantoin Macrocrystal (Macrodantin*), 50 MG GT FOUR TIMES A DAY, (Reported ) Omeprazole (Omeprazole), 40 MG ORAL DAILY, (Reported) Spironolactone* (Aldactone*), 25 MG ORAL DAILY, (Reported) Vancomycin Hcl/D5w (Vancomycin-D5w 1 G/250 Ml), 1 GM IVPB Q12HR, (Reported) Warfarin Sod (Coumadin*), 7.5 MG GT DAILY, (Reported) Zinc Sulfate (Zinc Sulfate*), 220 MG ORAL DAILY, (Reported) Scheduled PRN Hydrocodone Bit/Acetaminophen 5-325* ([place] 5-325*), 1 TAB ORAL Q4H PRN for For Pain, (Reported) Ondansetron* (Zofran*), 4 MG GT Q6H PRN for Nausea & Vomiting, (Reported) Tramadol Hcl* (Ultram*), 50 MG GT Q6H PRN for For Pain, (Reported) Miscellaneous Medications Albuterol Sulfate (Albuterol Sulfate), 2.5 MG IH, (Reported) Lactulose (Lactulose*), 30 ML ORAL, (Reported) Patient History Healthcare decision maker Resuscitation status Full Code Advanced Directive on File Past Medical/Surgical History Past Medical/Surgical History: (1) EF of 30% (2) Feeding by G-tube (3) Chronic respiratory acidosis Review of Systems All Other Systems: negative except mentioned in HPI Physical Exam General Appearance: cachetic Lines, tubes and drains: peripheral, gtube HEENT: normocephalic, atraumatic, status post trach Neck: non-tender Respiratory/Chest: rhonchi - left, rhonchi - right Cardiovascular/Chest: normal peripheral pulses, normal rate, regular rhythm Abdomen: normal bowel sounds, non tender Genitourinary/Rectal: normal genital exam, normal rectal exam Extremities: normal range of motion, non-tender Skin Exam: normal pigmentation Neurologic: vehicle and equipment cleaner 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 normal, no motor/sensory deficits Lymphatic: anterior cervical Musculoskeletal: normal muscle bulk Last 24 Hour Vital Signs Date Time Temp Pulse Resp B/P Pulse Ox O2 Delivery O2 Flow Rate FiO2 05/11/17 12:00 99.0 103 24 96/68 100 Mechanical Ventilator 40 05/11/17 12:00 40 05/11/17 10:50 110 25 30 05/11/17 09:14 112 111/71 05/11/17 08:48 112 23 30 05/11/17 08:00 100.0 112 18 111/71 100 Mechanical Ventilator 40 05/11/17 08:00 40 05/11/17 07:53 110 6/25/17 06:48 113 25 30 05/11/17 05:22 113 24 30 05/11/17 04:00 40 05/11/17 04:00 115 05/11/17 02:46 112 24 30 05/11/17 02:06 40 05/11/17 00:39 113 24 35 05/11/17 00:00 97.7 114 20 122/84 100 Mechanical Ventilator 5.0 40 05/11/17 00:00 115 05/10/17 22:58 113 23 40 05/10/17 21:50 97.1 116 25 110/73 100 Mechanical Ventilator 5.0 40 05/10/17 21:45 113 110/73 05/10/17 21:30 97.2 116 25 110/73 100 Mechanical Ventilator 40 05/10/17 21:17 97.1 117 24 05/10/17 21:00 97.1 116 25 115/75 100 Mechanical Ventilator 40 05/10/17 20:50 115 23 40 05/10/17 19:00 98.6 117 24 113/75 99 Mechanical Ventilator 40 05/10/17 18:47 112 24 40 05/10/17 17:43 40 05/10/17 17:41 99.5 112 26 100/71 100 Mechanical Ventilator 40 05/10/17 17:11 115 25 Mechanical Ventilator 40 05/10/17 17:11 115 25 40 05/10/17 17:10 110 22 Mechanical Ventilator 40 05/10/17 16:56 120 18 102/68 100 Mechanical Ventilator 5.0 Intake and Output 05/10/17 05/11/17 19:00 07:00 Intake Total 1000 ml 1100 ml Output Total 30 ml 800 ml Balance 970 ml 300 ml Intake IV Total 1000 ml 600 ml Blood Product 500 ml Output Urine Total 30 ml 800 ml # Bowel Movements 2 Laboratory Tests Test 05/10/17 17:20 05/11/17 10:30 White Blood Count 14.6 K/UL (4.8-10.8) H 11.9 K/UL (4.8-10.8) H Red Blood Count 2.49 M/UL (4.70-6.10) L 3.81 M/UL (4.70-6.10) L Hemoglobin 6.5 G/DL (14.2-18.0) *L 10.3 G/DL (14.2-18.0) #L Hematocrit 20.3 % (42.0-52.0) L 32.3 % (42.0-52.0) #L Mean Corpuscular Volume 82 FL (80-99) 85 FL (80-99) Mean Corpuscular Hemoglobin 26.2 PG (27.0-31.0) L 27.1 PG (27.0-31.0) Mean Corpuscular Hemoglobin Concent 32.1 G/DL (32.0-36.0) 32.0 G/DL (32.0-36.0) Red Cell Distribution Width 18.1 % (11.6-14.8) H 16.9 % (11.6-14.8) H Platelet Count 394 K/UL (150-450) 376 K/UL (150-450) Mean Platelet Volume 5.8 FL (6.5-10.1) L 5.7 FL (6.5-10.1) L Neutrophils (%) (Auto) % (45.0-75.0) 78.8 % (45.0-75.0) H Lymphocytes (%) (Auto) % (20.0-45.0) 12.7 % (20.0-45.0) L Monocytes (%) (Auto) % (1.0-10.0) 6.5 % (1.0-10.0) Eosinophils (%) (Auto) % (0.0-3.0) 1.5 % (0.0-3.0) Basophils (%) (Auto) % (0.0-2.0) 0.5 % (0.0-2.0) Differential Total Cells Counted 100 Neutrophils % (Manual) 76 % (45-75) H Lymphocytes % (Manual) 15 % (20-45) L Monocytes % (Manual) 8 % (1-10) Eosinophils % (Manual) 1 % (0-3) Basophils % (Manual) 0 % (0-2) Band Neutrophils 0 % (0-8) Platelet Estimate Adequate Platelet Morphology Normal Hypochromasia 1+ Anisocytosis 1+ Ovalocytes 1+ Sodium Level 132 mEQ/L (135-145) L Pending Potassium Level 3.9 mEQ/L (3.4-4.9) Pending Chloride Level 94 mEQ/L (98-107) L Pending Carbon Dioxide Level 26 mEQ/L (20-30) Pending Anion Gap 12 (5-15) Blood Urea Nitrogen 23 mg/dL (7-23) Pending Creatinine 0.4 mg/dL (0.7-1.2) L Pending Estimat Glomerular Filtration Rate > 60 mL/min (>60) Pending Glucose Level 93 mg/dL (74-106) Pending Calcium Level 8.5 mg/dL (8.6-10.2) L Pending Iron Level 24 ug/dL (59-158) L Total Iron Binding Capacity 132 ug/dL (250-400) L Percent Iron Saturation 18 % (15-50) Unsaturated Iron Binding 108 ug/dL (112-346) L Total Bilirubin 0.3 mg/dL (0.0-1.2) Aspartate Amino Transf (AST/SGOT) 17 U/L (5-40) Alanine Aminotransferase (ALT/SGPT) 14 U/L (3-41) Alkaline Phosphatase 147 U/L (40-129) H Total Creatine Kinase 11 U/L (38-174) L Creatine Kinase MB 2.4 ng/mL (< 6.7) Creatine Kinase MB Relative Index 21.8 Troponin I < 0.30 ng/mL (<=0.30) Total Protein 6.6 g/dL (6.6-8.7) Albumin 2.0 g/dL (3.5-5.2) L Pending Globulin 4.6 g/dL Albumin/Globulin Ratio 0.4 (1.0-2.7) L Phosphorus Level Pending Height (Feet): 5 Height (Inches): 7.00 Weight (Pounds): 123 Medications Current Medications Medications (Trade) Dose Ordered Sig/Tameka Route PRN Reason Start Time Stop Time Status Last Admin Dose Admin Acetaminophen (Tylenol) 650 mg Q4H PRN ORAL FEVER 05/10/17 18:15 06/09/17 18:14 Albuterol/ Ipratropium 3 ml 3 ml Q4H PRN HHN Shortness of Breath 05/10/17 18:15 05/15/17 18:14 Amiodarone HCl (Cordarone) 200 mg DAILY GT 05/11/17 09:00 06/10/17 08:59 05/11/17 09:14 Carvedilol (Coreg) 3.125 mg Q12HR GT 05/10/17 21:00 06/09/17 20:59 05/11/17 09:14 Dextrose (Dextrose 50%) STAT PRN IV Hypoglycemia 05/10/17 18:15 06/09/17 18:14 Furosemide (Lasix) 60 mg DAILY GT 05/11/17 09:00 06/10/17 08:59 05/11/17 09:14 Lactulose (Cephulac) 20 gm BID ORAL 05/11/17 09:00 06/10/17 08:59 UNV Levetiracetam (Keppra) 500 mg Q12HR GT 05/10/17 21:00 06/09/17 20:59 05/11/17 09:14 Lorazepam (Ativan 2mg/ml 1ml) 2 mg Q2H PRN IV For Anxiety 05/10/17 18:15 05/17/17 18:14 Morphine Sulfate (Morphine Sulfate) 4 mg Q4H PRN IVP Severe Pain (Pain Scale 7-10) 05/10/17 18:15 05/17/17 18:14 Ondansetron HCl (Zofran) 4 mg Q6H PRN IVP Nausea & Vomiting 05/10/17 18:15 06/09/17 18:14 Piperacillin Sod/ Tazobactam Sod 3.375 gm/Sodium Chloride 110 ml @ 27.5 mls/hr Q8H IVPB 05/11/17 06:15 05/18/17 06:14 05/11/17 06:25 Polyethylene Glycol (Miralax) 17 gm DAILYPRN PRN ORAL Constipation 05/10/17 18:15 06/09/17 18:14 Sodium Chloride (0.45% NS 1000ml) 1,000 ml @ 75 mls/hr [id number] IV 05/10/17 19:00 06/09/17 18:59 05/11/17 09:15 Spironolactone (Aldactone) 25 mg DAILY ORAL 05/11/17 09:00 06/10/17 08:59 05/11/17 09:14 Vancomycin HCl 1 ea 1 ea DAILY PRN MISC PER RX PROTOCOL 05/10/17 19:15 06/09/17 19:14 Vancomycin HCl/ Dextrose (Vancomycin/D5W) 275 ml @ 183.333 mls/hr Q12HR IVPB 05/11/17 06:15 05/16/17 06:14 05/11/17 06:26 Assessment/Plan Problem List: (1) Acute on chronic respiratory failure ICD Codes: J96.20 - Acute and chronic respiratory failure, unspecified whether with hypoxia or hypercapnia SNOMED: 29426952, 88459915 (2) EF of 30% (3) Feeding by G-tube ICD Codes: Z93.1 - Gastrostomy status SNOMED: 221785061, 491226991 (4) Chronic respiratory acidosis ICD Codes: E87.2 - Acidosis SNOMED: 4827361 (5) Anemia ICD Codes: D64.9 - Anemia, unspecified SNOMED: 443155172 Qualifiers: Qualified Codes: D64.9 - Anemia, unspecified Respiratory: monitor respiratory rate, adjust FIO2 Cardiac: continue pressors, stop pressors, continue to monitor HR/BP Renal: F/U I&O Infectious Disease: check cultures, continue antibiotics Gastrointestinal: hold feedings Endocrine: check TSH, check HgA1C, continue sliding scale insulin Hematologic: transfuse if hgb<8.5 Neurologic: PRN Ativan, PRN Morphine, keep patient comfortable Notes Reviewed: renal, ID Discussed with: nurses, consultants ODETTE SMILEY May 11, 2017 12:41
--- NOTE | 2017-05-11 14:30 | Consultation ---
DATE OF CONSULTATION: 05/11/2017 GASTROENTEROLOGY CONSULTATION CHIEF COMPLAINT: G-tube malfunctioning and anemia. HISTORY OF PRESENT ILLNESS: Most of the history is per chart. The patient is intubated and was transferred to the hospital with heart rate of 140. The patient was found anemic. Also G-tube was out overnight and Buckley was placed by the nurse. So, GI consultation was requested for G-tube replacement. PAST MEDICAL HISTORY: 1. History of respiratory failure, on chronic vent. 2. Dysphagia with G-tube. 3. Hepatitis C. 4. Abnormal liver function tests. 5. Iron deficiency anemia. 6. History of pacemaker placement. 7. Hypertension. 8. Congestive heart failure. 9. History of decubitus ulceration. ALLERGIES: No known drug allergies. MEDICATIONS: Please see medication reconciliation list. SOCIAL HISTORY: He currently lives in senior living. No recent history of tobacco, alcohol, or drug abuse. FAMILY HISTORY: Noncontributory. REVIEW OF SYSTEMS: Unable to obtain. PHYSICAL EXAMINATION: VITAL SIGNS: Temperature is 100, pulse rate is 112, respirations 23, blood pressure is . HEENT: Normocephalic and atraumatic. Mild pale conjunctivae. NECK: Supple. Trach in place. CARDIOVASCULAR: Tachy. Regular. Plus S1 and S2. LUNGS: on supine exam. ABDOMEN: Soft and nontender. There is a Buckley at the G-tube site in the left upper quadrant. Also, there plastic drainage of red color in the upper abdomen of unknown etiology or unknown source. EXTREMITIES: No cyanosis, no clubbing, and no edema. LABORATORY DATA: Sodium 132, potassium 3.9, BUN is 23, and creatinine 0.4. Iron saturation 18%. Liver enzymes, AST of 17, ALT of 14, and alkaline phosphatase of 147. White count is 14.6, hemoglobin 6.5, hematocrit 20, and platelets 394,000. ASSESSMENT: 1. Anemia. 2. Dysphagia with gastrostomy tube. 3. Hepatitis C. 4. History of abnormal liver function tests. PLAN: G-tube was placed at the bedside. Buckley was removed and 24-[place] balloon type of G-tube was placed without any complication. Plan to start tube feeding. Monitor residuals. The patient had anemia before too on the last admission without any obvious GI bleeding. Stool OB was negative on last admission. Plan to monitor hemoglobin and hematocrit as needed. Send stool for occult blood. PPI for GI prophylaxis. Niraj Alex M.D. DR: REJI JOB#: [id number] CC:
[2017-05-11 16:00] VITALS: BP 98/68
--- NOTE | 2017-05-11 16:00 | Consultation ---
DATE OF CONSULTATION: 05/11/2017 INFECTIOUS DISEASE CONSULTATION REQUESTING PHYSICIAN: Shani Moses M.D. REASON FOR CONSULTATION: Possible sepsis. HISTORY OF PRESENT ILLNESS: This is a 57-year-old male, prison resident, with a history of chronic ventilator-dependent respiratory failure and chronic anemia, admitted on May 10 with tachycardia. The patient was profoundly anemic with a hemoglobin of 6.5. Also evidence of leukocytosis 14.6 and low-grade fever of 100. Screening cultures and imaging are pending. He has been started on empiric IV vancomycin and Zosyn and ID now consulted to assist in management. PAST MEDICAL HISTORY: 1. Chronic ventilator-dependent respiratory failure. 2. Ischemic cardiomyopathy with an ejection fraction of 30% to 35%, status post AICD placement. 3. Hypertension. 4. Paroxysmal atrial fibrillation. 5. Hepatitis C antibody positive. 6. Multiple decubitus. PAST SURGICAL HISTORY: 1. AICD placement. 2. Tracheostomy. 3. PEG tube. FAMILY HISTORY: Noncontributory. SOCIAL HISTORY: The patient is a resident of a prison. No active tobacco, alcohol, or illicit drug abuse. ALLERGIES: No known drug allergies. MEDICATIONS: 1. IV vancomycin day. 2. Zosyn day 3. Amiodarone. 4. Lasix. 5. Lactulose. 6. Aldactone. 7. Coreg. 8. Keppra. REVIEW OF SYSTEMS: Unable to obtain. PHYSICAL EXAMINATION: VITAL SIGNS: Maximum temperature of 100 degrees, blood pressure 111/71, heart rate 112, respiratory rate 20, and saturating 100% on 40% FiO2. GENERAL: No apparent distress. HEENT: Tracheostomy tube in place. CARDIOVASCULAR: Regular rate and rhythm. No murmurs. PULMONARY: Coarse breath sounds bilaterally. GASTROINTESTINAL: Bowel sounds present. Soft, nondistended, nontender. PEG tube in place. EXTREMITIES: No edema. SKIN: Multiple decubitus documented elsewhere. LABORATORY DATA: White blood cell count 14.6, hemoglobin 6.5, and platelets 394,000. Sodium 132, potassium 3.9, chloride 94, bicarbonate 26, BUN 23, and creatinine 0.4. AST 17, ALT 14, and alkaline phosphatase 147. Total bilirubin 0.3. Albumin 2. Troponin negative x1. MICROBIOLOGY: 1. April sputum culture pending, 2. May 10 wound culture pending. IMAGIN. May 10 bilateral lower extremity Doppler ultrasound pending. 2. May 10 chest x-ray pending. ASSESSMENT: 1. Possible healthcare-associated/ventilator associated pneumonia. Sputum culture and chest x-ray are pending. He has a history of growth of multi-drug resistant organisms. 2. Stage IV sacral decubitus ulcer, not grossly infected. Surveillance wound culture is pending. He has a history of polymicrobial multi-drug resistant colonization. 3. Hepatitis C antibody positive. LFTs are within normal limits at this time. Recent abdominal ultrasound showed no evidence of mass. 4. Possible sepsis. 5. Leukocytosis. 6. Low-grade fever x1. 7. Severe anemia with a hemoglobin of 6.5. Gastrointestinal evaluation is pending. 8. Sinus tachycardia, most likely secondary to severe anemia. 9. Chronic ventilator-dependent respiratory failure, status post tracheostomy and percutaneous endoscopic gastrostomy. 10. History of cardiac arrest and anoxic encephalopathy. 11. Cardiomyopathy, status post defibrillator placement. 12. Paroxysmal atrial fibrillation. 13. Cachexia/severe protein-calorie malnutrition. 14. [facility] resident. 15. No known drug allergies. 16. Full Code. PLAN: 1. Continue empiric IV vancomycin and Zosyn day. 2. GI evaluation and transfuse as needed. 3. Follow up cultures and adjust antibiotics accordingly. 4. Monitor CBC and temperatures. 5. Monitor CMP. 6. Monitor chest x-ray. 7. Ventilator support tracheostomy care and aspiration precautions. 8. Wound care. Thank you. We will follow. Zev Wells M.D. DR: ROE JOB#: [id number] CC: Shani Moses M.D.; Fax#: [phone]. Zev Wells
[2017-05-11] MEDS: Vancomycin 1250mg/D5W 275ml IVPB SCH ×2 (18:10)
[2017-05-11 20:00] VITALS: BP 90/60
[2017-05-12] VITALS: BP 94/63
[2017-05-12 04:00] VITALS: BP 107/69
[2017-05-12] MEDS: Vancomycin 1250mg/D5W 275ml IVPB SCH ×2 (05:59)
[2017-05-12] MEDS: Piperacillin/Tazobactam 3.375 GM in NS 110 ML IVPB SCH ×3 (06:15→21:55)
[2017-05-12 06:23] LABS: BASOPHILS % (AUTO) 0.7 % (0.0-2.0); EOSINOPHILS % (AUTO) 1.2 % (0.0-3.0); LYMPHOCYTES % (AUTO) 10.8 % (20.0-45.0); MEAN CORPUSCULAR HEMOGLOBIN 27.3 PG (27.0-31.0); MEAN CORPUSCULAR HGB CONC 31.9 G/DL (32.0-36.0); MEAN CORPUSCULAR VOLUME 86 FL (80-99); MEAN PLATELET VOLUME 5.5 FL (6.5-10.1); MONOCYTES % (AUTO) 8.5 % (1.0-10.0); NEUTROPHILS % (AUTO) 78.8 % (45.0-75.0); PLATELET COUNT 388 K/UL (150-450); RED BLOOD COUNT 3.74 M/UL (4.70-6.10); RED CELL DISTRIBUTION WIDTH 16.9 % (11.6-14.8)
[2017-05-12 06:25] LABS: ALANINE AMINOTRANSFERASE 11 U/L (3-41); ALBUMIN/GLOBULIN RATIO 0.4 (1.0-2.7); ANION GAP 17 (5-15); ASPARTATE AMINO TRANSFERASE 15 U/L (5-40); CALCIUM 8.6 mg/dL (8.6-10.2); CARBON DIOXIDE 23 mEQ/L (20-30); CHLORIDE 94 mEQ/L (98-107); CREATININE 0.4 mg/dL (0.7-1.2); GLOMERULAR FILTRATION RATE > 60 mL/min (>60); HEMOLYSIS 3; POTASSIUM 3.2 mEQ/L (3.4-4.9); SODIUM 134 mEQ/L (135-145); TOTAL PROTEIN 6.6 g/dL (6.6-8.7)
[2017-05-12 08:00] VITALS: BP 118/64
[2017-05-12] MEDS: levETIRAcetam 500mg/5ml Liquid GT SCH ×2 (09:00→21:55)
[2017-05-12] MEDS: Amiodarone 200mg tab GT SCH (09:00)
[2017-05-12] MEDS: Spironolactone 25mg tab ORAL SCH (09:00)
[2017-05-12 09:52] LABS: OTHERS PATHOLOGIST COMMENT
--- NOTE | 2017-05-12 11:16 | GI Progress Note ---
Assessment/Plan Problems: (1) Anemia ICD Codes: D64.9 - Anemia, unspecified SNOMED: 921921629 Qualifiers: Qualified Codes: D64.9 - Anemia, unspecified (2) EF of 30% (3) Feeding by G-tube ICD Codes: Z93.1 - Gastrostomy status SNOMED: 895048509, 356542432 (4) Transaminitis ICD Codes: R74.0 - Nonspecific elevation of levels of transaminase and lactic acid dehydrogenase [LDH] SNOMED: 871866402 (5) Leukocytosis ICD Codes: D72.829 - Elevated white blood cell count, unspecified SNOMED: 568111059, 820069714 Status: unchanged Status Narrative Discussed with Dr. Alex. Assessment/Plan GT replaced. start GTFs per dietary, monitor residuals monitor H&H, transfuse prn fu occult blood stool r/o GI bleed PPI for GI prophylaxis fu labs Subjective Subjective limited Objective Last 24 Hour Vital Signs Date Time Temp Pulse Resp B/P Pulse Ox O2 Delivery O2 Flow Rate FiO2 05/12/17 11:03 104 22 30 05/12/17 09:00 105 118/75 05/12/17 09:00 109 24 30 05/12/17 08:00 104 05/12/17 08:00 98.7 105 22 118/64 94 Mechanical Ventilator 30 05/12/17 08:00 30 05/12/17 06:34 111 30 30 05/12/17 05:26 110 29 30 05/12/17 04:00 40 05/12/17 04:00 101 05/12/17 04:00 97.9 101 16 107/69 99 Mechanical Ventilator 05/12/17 02:58 103 29 30 05/12/17 01:25 102 27 30 05/12/17 00:00 102 05/12/17 00:00 97.3 100 15 94/63 100 Mechanical Ventilator 05/12/17 00:00 40 05/11/17 23:16 94 23 30 05/11/17 20:44 100 90/60 05/11/17 20:34 104 23 30 05/11/17 20:00 40 05/11/17 20:00 97.0 100 16 90/60 96 Mechanical Ventilator 05/11/17 20:00 98 05/11/17 19:18 101 25 30 05/11/17 16:59 103 20 30 05/11/17 16:00 40 05/11/17 16:00 99.4 103 23 98/68 100 Mechanical Ventilator 30 05/11/17 15:51 104 05/11/17 15:03 108 21 30 05/11/17 12:43 111 22 30 05/11/17 12:00 99.0 103 24 96/68 100 Mechanical Ventilator 40 05/11/17 12:00 40 05/11/17 11:55 101 Intake and Output 05/11/17 05/12/17 19:00 07:00 Intake Total 1301.250 ml 1426.866 ml Output Total 3000 ml 1000 ml Balance -1698.750 ml 426.866 ml Intake Free Water 200 ml IV Total 1301.250 ml 1226.866 ml Output Urine Total 3000 ml 1000 ml # Bowel Movements 1 2 Laboratory Tests Test 05/11/17 18:30 05/12/17 03:50 05/12/17 04:15 Stool Occult Blood Negative (NEGATIVE) Negative (NEGATIVE) White Blood Count 14.0 K/UL (4.8-10.8) H Red Blood Count 3.74 M/UL (4.70-6.10) L Hemoglobin 10.2 G/DL (14.2-18.0) L Hematocrit 32.0 % (42.0-52.0) L Mean Corpuscular Volume 86 FL (80-99) Mean Corpuscular Hemoglobin 27.3 PG (27.0-31.0) Mean Corpuscular Hemoglobin Concent 31.9 G/DL (32.0-36.0) L Red Cell Distribution Width 16.9 % (11.6-14.8) H Platelet Count 388 K/UL (150-450) Mean Platelet Volume 5.5 FL (6.5-10.1) L Neutrophils (%) (Auto) 78.8 % (45.0-75.0) H Lymphocytes (%) (Auto) 10.8 % (20.0-45.0) L Monocytes (%) (Auto) 8.5 % (1.0-10.0) Eosinophils (%) (Auto) 1.2 % (0.0-3.0) Basophils (%) (Auto) 0.7 % (0.0-2.0) Sodium Level 134 mEQ/L (135-145) L Potassium Level 3.2 mEQ/L (3.4-4.9) L Chloride Level 94 mEQ/L (98-107) L Carbon Dioxide Level 23 mEQ/L (20-30) Anion Gap 17 (5-15) H Blood Urea Nitrogen 16 mg/dL (7-23) Creatinine 0.4 mg/dL (0.7-1.2) L Estimat Glomerular Filtration Rate > 60 mL/min (>60) Glucose Level 70 mg/dL (74-106) L Calcium Level 8.6 mg/dL (8.6-10.2) Magnesium Level 1.4 mg/dL (1.7-2.5) L Total Bilirubin 0.6 mg/dL (0.0-1.2) Aspartate Amino Transf (AST/SGOT) 15 U/L (5-40) Alanine Aminotransferase (ALT/SGPT) 11 U/L (3-41) Alkaline Phosphatase 155 U/L (40-129) H Total Protein 6.6 g/dL (6.6-8.7) Albumin 1.9 g/dL (3.5-5.2) L Globulin 4.7 g/dL Albumin/Globulin Ratio 0.4 (1.0-2.7) L Height (Feet): 5 Height (Inches): 7.00 Weight (Pounds): 123 General Appearance: no apparent distress, lethargic Cardiovascular: normal rate Respiratory/Chest: no respiratory distress Abdominal Exam: site - c/d/i Lani Last N.P. May 12, 2017 11:16
[2017-05-12 12:00] VITALS: BP 94/66
--- NOTE | 2017-05-12 12:13 | Pulmonology Progress Note ---
Assessment/Plan Problems: (1) Acute on chronic respiratory failure (2) Anemia (3) Right pulmonary infiltrate on CXR (4) Chronic respiratory acidosis (5) Feeding by G-tube (6) EF of 30% Respiratory: monitor respiratory rate, adjust FIO2 Cardiac: continue pressors, continue to monitor HR/BP Renal: F/U I&O, keep IV fluid, check electrolytes Infectious Disease: check cultures Gastrointestinal: continue feedings/current rate Endocrine: monitor blood sugar Hematologic: monitor H/H, transfuse if hgb<8.5 Neurologic: PRN Ativan, PRN Morphine, keep patient comfortable Affect: PRN ativan Prophylaxis: Protonix Notes Reviewed: cell technician, renal Discussed with: nurses, consultants, family preservation caseworker Subjective ROS Limited/Unobtainable: Yes Allergies: Coded Allergies: No Known Allergies (Unverified , 03/07/17) Objective Last 24 Hour Vital Signs Date Time Temp Pulse Resp B/P Pulse Ox O2 Delivery O2 Flow Rate FiO2 05/12/17 11:03 104 22 30 05/12/17 09:00 105 118/75 05/12/17 09:00 109 24 30 05/12/17 08:00 104 05/12/17 08:00 98.7 105 22 118/64 94 Mechanical Ventilator 30 05/12/17 08:00 30 05/12/17 06:34 111 30 30 05/12/17 05:26 110 29 30 05/12/17 04:00 40 05/12/17 04:00 101 05/12/17 04:00 97.9 101 16 107/69 99 Mechanical Ventilator 05/12/17 02:58 103 29 30 05/12/17 01:25 102 27 30 05/12/17 00:00 102 05/12/17 00:00 97.3 100 15 94/63 100 Mechanical Ventilator 05/12/17 00:00 40 05/11/17 23:16 94 23 30 05/11/17 20:44 100 90/60 05/11/17 20:34 104 23 30 05/11/17 20:00 40 05/11/17 20:00 97.0 100 16 90/60 96 Mechanical Ventilator 05/11/17 20:00 98 05/11/17 19:18 101 25 30 05/11/17 16:59 103 20 30 05/11/17 16:00 40 05/11/17 16:00 99.4 103 23 98/68 100 Mechanical Ventilator 30 05/11/17 15:51 104 05/11/17 15:03 108 21 30 05/11/17 12:43 111 22 30 Intake and Output 05/11/17 05/12/17 19:00 07:00 Intake Total 1301.250 ml 1426.866 ml Output Total 3000 ml 1000 ml Balance -1698.750 ml 426.866 ml Intake Free Water 200 ml IV Total 1301.250 ml 1226.866 ml Output Urine Total 3000 ml 1000 ml # Bowel Movements 1 2 General Appearance: cachetic HEENT: normocephalic, atraumatic, status post trach Respiratory/Chest: chest wall non-tender, rhonchi Cardiovascular: normal peripheral pulses, normal rate Abdomen: normal bowel sounds, soft, non tender Skin: no rash 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: network administrator 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 normal, abnormal gait Lymphatic: no neck adenopathy, no groin adenopathy Microbiology Date/Time Source Procedure Growth Status 05/11/17 01:10 Sputum Gram Stain - Final Resulted 05/11/17 01:10 Sputum Sputum Culture Pending Resulted 05/10/17 01:10 Sacral Wound Gram Stain - Final Resulted 05/10/17 01:10 Sacral Wound Wound Culture - Preliminary Resulted Laboratory Tests 05/11/17 18:30: Stool Occult Blood Negative 05/12/17 03:50: White Blood Count 14.0H, Red Blood Count 3.74L, Hemoglobin 10.2L, Hematocrit 32.0L, Mean Corpuscular Volume 86, Mean Corpuscular Hemoglobin 27.3, Mean Corpuscular Hemoglobin Concent 31.9L, Red Cell Distribution Width 16.9H, Platelet Count 388, Mean Platelet Volume 5.5L, Neutrophils (%) (Auto) 78.8H, Lymphocytes (%) (Auto) 10.8L, Monocytes (%) (Auto) 8.5, Eosinophils (%) (Auto) 1.2, Basophils (%) (Auto) 0.7, Sodium Level 134L, Potassium Level 3.2L, Chloride Level 94L, Carbon Dioxide Level 23, Anion Gap 17H, Blood Urea Nitrogen 16, Creatinine 0.4L, Estimat Glomerular Filtration Rate > 60, Glucose Level 70L , Calcium Level 8.6, Magnesium Level 1.4L, Total Bilirubin 0.6, Aspartate Amino Transf (AST/SGOT) 15, Alanine Aminotransferase (ALT/SGPT) 11, Alkaline Phosphatase 155H, Total Protein 6.6, Albumin 1.9L, Globulin 4.7, Albumin/ Globulin Ratio 0.4L 05/12/17 04:15: Stool Occult Blood Negative Current Medications Medications (Trade) Dose Ordered Sig/Tameka Route PRN Reason Start Time Stop Time Status Last Admin Dose Admin Acetaminophen (Tylenol) 650 mg Q4H PRN ORAL FEVER 05/10/17 18:15 06/09/17 18:14 Albuterol/ Ipratropium 3 ml 3 ml Q4H PRN HHN Shortness of Breath 05/10/17 18:15 05/15/17 18:14 Amiodarone HCl (Cordarone) 200 mg DAILY GT 05/11/17 09:00 06/10/17 08:59 05/12/17 09:00 Carvedilol (Coreg) 3.125 mg Q12HR GT 05/10/17 21:00 06/09/17 20:59 05/12/17 09:00 Dextrose (Dextrose 50%) STAT PRN IV Hypoglycemia 05/10/17 18:15 06/09/17 18:14 Furosemide (Lasix) 60 mg DAILY GT 05/11/17 09:00 06/10/17 08:59 05/12/17 09:00 Levetiracetam (Keppra) 500 mg Q12HR GT 05/10/17 21:00 06/09/17 20:59 05/12/17 09:00 Lorazepam (Ativan 2mg/ml 1ml) 2 mg Q2H PRN IV For Anxiety 05/10/17 18:15 05/17/17 18:14 Magnesium Sulfate (Magnesium Sulfate 1gm/100ml) 100 ml @ 100 mls/hr Q1H IVPB 05/12/17 12:00 05/12/17 13:59 Morphine Sulfate (Morphine Sulfate) 4 mg Q4H PRN IVP Severe Pain (Pain Scale 7-10) 05/10/17 18:15 05/17/17 18:14 Ondansetron HCl (Zofran) 4 mg Q6H PRN IVP Nausea & Vomiting 05/10/17 18:15 06/09/17 18:14 Piperacillin Sod/ Tazobactam Sod 3.375 gm/Sodium Chloride 110 ml @ 27.5 mls/hr Q8H IVPB 05/11/17 06:15 05/18/17 06:14 05/12/17 06:15 Polyethylene Glycol (Miralax) 17 gm DAILYPRN PRN ORAL Constipation 05/10/17 18:15 06/09/17 18:14 Sodium Chloride (0.45% NS 1000ml) 1,000 ml @ 75 mls/hr [id number] IV 05/10/17 19:00 06/09/17 18:59 05/12/17 10:00 Spironolactone (Aldactone) 25 mg DAILY ORAL 05/11/17 09:00 06/10/17 08:59 05/12/17 09:00 Vancomycin HCl 1.25 gm/Dextrose 275 ml @ 183.333 mls/hr Q12HR@0600,1800 IVPB 05/11/17 18:00 05/16/17 17:59 05/12/17 05:59 Vancomycin HCl 1 ea 1 ea DAILY PRN MISC PER RX PROTOCOL 05/10/17 19:15 06/09/17 19:14 ODETTE SMILEY May 12, 2017 12:13
[2017-05-12] MEDS: Morphine Sulfate 4mg/ml Inj IVP PRN (14:18)
[2017-05-12 16:09] VITALS: BP 128/58
--- NOTE | 2017-05-12 20:09 | Cardiology Report ---
APPROVED REPORT EKG Measurement Heart [id number] Sinus tachycardia with occasional premature ventricular complexes and fusion complexes Otherwise normal ECG
--- NOTE | 2017-05-12 20:23 | Infectious Diseases Prog Note ---
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 - SCx GNR - CXR: Worsening atelectasis versus pneumonia right lung base - h/o Provid a+ XDR PSA and Providencia // Stage IV sacral decubitus, not grossly infected - surveillance WCx GPC - h/o polymicrobial MDR colonization // HCV Ab+ - Abdominal ultrasound of liver : unremarkable // Probable sepsis // Leukocytosis - worse // Low grade fever x1 - resolved Severe anemia SP PRBCs Sinus tachycardia Chronic VDRF SP trach, PEG h/o cardiac arrest, anoxic encephalopathy Cardiomyopathy SP defibrillator placement Paroxysmal atrial fibrillation Cachexia / severe protein-calorie malnutrition [place] resident NKDA Full Code PLAN: continue empiric IV vancomycin, zosyn d# 3 ( SP Merrem and Colistin INH d# / ) ( 03/13 SP vancomycin and Zosyn d# 5 ) f/u cultures Monitor CBC, temperatures Monitor CMP Monitor CXR vent support, trach care, aspiration precautions wound care transfuse prn Subjective Allergies: Coded Allergies: No Known Allergies (Unverified , 03/07/17) Subjective low grade fever x1 resolved. WBC up Objective Vital Signs Last 24 Hour Vital Signs Date Time Temp Pulse Resp B/P Pulse Ox O2 Delivery O2 Flow Rate FiO2 05/12/17 19:26 101 21 30 05/12/17 16:48 102 24 30 05/12/17 16:09 97.5 100 20 128/58 99 Mechanical Ventilator 30 05/12/17 16:06 30 05/12/17 16:00 95 05/12/17 15:03 99 25 30 05/12/17 12:39 98 22 30 05/12/17 12:15 30 05/12/17 12:00 98.2 100 24 94/66 98 05/12/17 12:00 106 05/12/17 11:03 104 22 30 05/12/17 09:00 105 118/75 05/12/17 09:00 109 24 30 05/12/17 08:00 104 05/12/17 08:00 98.7 105 22 118/64 94 Mechanical Ventilator 30 05/12/17 08:00 30 05/12/17 06:34 111 30 30 05/12/17 05:26 110 29 30 05/12/17 04:00 40 05/12/17 04:00 101 05/12/17 04:00 97.9 101 16 107/69 99 Mechanical Ventilator 05/12/17 02:58 103 29 30 05/12/17 01:25 102 27 30 05/12/17 00:00 102 05/12/17 00:00 97.3 100 15 94/63 100 Mechanical Ventilator 05/12/17 00:00 40 05/11/17 23:16 94 23 30 05/11/17 20:44 100 90/60 05/11/17 20:34 104 23 30 Height (Feet): 5 Height (Inches): 7.00 Weight (Pounds): 123 General Appearance: no acute distress HEENT: status post trach Respiratory/Chest: decreased breath sounds Cardiovascular: normal rate, regular rhythm Abdomen: normal bowel sounds, soft, non tender, non distended Microbiology Date/Time Source Procedure Growth Status 05/11/17 01:10 Sputum Gram Stain - Final Resulted 05/11/17 01:10 Sputum Sputum Culture Pending Resulted 05/10/17 01:10 Sacral Wound Gram Stain - Final Resulted 05/10/17 01:10 Sacral Wound Wound Culture - Preliminary Resulted Laboratory Tests Test 05/12/17 03:50 05/12/17 04:15 05/12/17 17:05 White Blood Count 14.0 K/UL (4.8-10.8) H Red Blood Count 3.74 M/UL (4.70-6.10) L Hemoglobin 10.2 G/DL (14.2-18.0) L Hematocrit 32.0 % (42.0-52.0) L Mean Corpuscular Volume 86 FL (80-99) Mean Corpuscular Hemoglobin 27.3 PG (27.0-31.0) Mean Corpuscular Hemoglobin Concent 31.9 G/DL (32.0-36.0) L Red Cell Distribution Width 16.9 % (11.6-14.8) H Platelet Count 388 K/UL (150-450) Mean Platelet Volume 5.5 FL (6.5-10.1) L Neutrophils (%) (Auto) 78.8 % (45.0-75.0) H Lymphocytes (%) (Auto) 10.8 % (20.0-45.0) L Monocytes (%) (Auto) 8.5 % (1.0-10.0) Eosinophils (%) (Auto) 1.2 % (0.0-3.0) Basophils (%) (Auto) 0.7 % (0.0-2.0) Sodium Level 134 mEQ/L (135-145) L Potassium Level 3.2 mEQ/L (3.4-4.9) L Chloride Level 94 mEQ/L (98-107) L Carbon Dioxide Level 23 mEQ/L (20-30) Anion Gap 17 (5-15) H Blood Urea Nitrogen 16 mg/dL (7-23) Creatinine 0.4 mg/dL (0.7-1.2) L Estimat Glomerular Filtration Rate > 60 mL/min (>60) Glucose Level 70 mg/dL (74-106) L Calcium Level 8.6 mg/dL (8.6-10.2) Magnesium Level 1.4 mg/dL (1.7-2.5) L Total Bilirubin 0.6 mg/dL (0.0-1.2) Aspartate Amino Transf (AST/SGOT) 15 U/L (5-40) Alanine Aminotransferase (ALT/SGPT) 11 U/L (3-41) Alkaline Phosphatase 155 U/L (40-129) H Total Protein 6.6 g/dL (6.6-8.7) Albumin 1.9 g/dL (3.5-5.2) L Globulin 4.7 g/dL Albumin/Globulin Ratio 0.4 (1.0-2.7) L Stool Occult Blood Negative (NEGATIVE) Vancomycin Level Trough 30.2 ug/mL (5.0-12.0) H Current Medications Medications (Trade) Dose Ordered Sig/Tameka Route PRN Reason Start Time Stop Time Status Last Admin Dose Admin Acetaminophen (Tylenol) 650 mg Q4H PRN ORAL FEVER 05/10/17 18:15 06/09/17 18:14 Albuterol/ Ipratropium 3 ml 3 ml Q4H PRN HHN Shortness of Breath 05/10/17 18:15 05/15/17 18:14 Amiodarone HCl (Cordarone) 200 mg DAILY GT 05/11/17 09:00 06/10/17 08:59 05/12/17 09:00 Carvedilol (Coreg) 3.125 mg Q12HR GT 05/10/17 21:00 06/09/17 20:59 05/12/17 09:00 Dextrose (Dextrose 50%) STAT PRN IV Hypoglycemia 05/10/17 18:15 06/09/17 18:14 Furosemide (Lasix) 60 mg DAILY GT 05/11/17 09:00 06/10/17 08:59 05/12/17 09:00 Levetiracetam (Keppra) 500 mg Q12HR GT 05/10/17 21:00 06/09/17 20:59 05/12/17 09:00 Lorazepam (Ativan 2mg/ml 1ml) 2 mg Q2H PRN IV For Anxiety 05/10/17 18:15 05/17/17 18:14 Morphine Sulfate (Morphine Sulfate) 4 mg Q4H PRN IVP Severe Pain (Pain Scale 7-10) 05/10/17 18:15 05/17/17 18:14 05/12/17 14:18 Ondansetron HCl (Zofran) 4 mg Q6H PRN IVP Nausea & Vomiting 05/10/17 18:15 06/09/17 18:14 Piperacillin Sod/ Tazobactam Sod 3.375 gm/Sodium Chloride 110 ml @ 27.5 mls/hr Q8H IVPB 05/11/17 06:15 05/18/17 06:14 05/12/17 14:44 Polyethylene Glycol (Miralax) 17 gm DAILYPRN PRN ORAL Constipation 05/10/17 18:15 06/09/17 18:14 Sodium Chloride (0.45% NS 1000ml) 1,000 ml @ 75 mls/hr [id number] IV 05/10/17 19:00 06/09/17 18:59 05/12/17 10:00 Spironolactone (Aldactone) 25 mg DAILY ORAL 05/11/17 09:00 06/10/17 08:59 05/12/17 09:00 Vancomycin HCl 1 ea 1 ea DAILY PRN MISC PER RX PROTOCOL 05/10/17 19:15 06/09/17 19:14 Vancomycin HCl/ Dextrose (Vancomycin/D5W) 275 ml @ 183.708 mls/hr Q12HR@0800,2000 IVPB 05/13/17 08:00 05/18/17 07:59 ROXANNE BELLO May 12, 2017 20:23
[2017-05-12 20:25] VITALS: BP 98/59
[2017-05-13 00:42] VITALS: BP 103/64
--- NOTE | 2017-05-13 03:52 | Wound Care Consultation ---
Wound Assessment Wound Assessment #1: Wound Present on Admission: Yes New Wound: No Status Change of Wound: No Wound Location Body Site Modif: right Wound Location Body Site: knee Wound Type: pressure ulcer Francis Test: Does not Francis Pressure Ulcer Stage: II Wound Thickness: Partial Thickness Wound Length: 2.0 Wound Width: 1.0 Wound Depth: 0.1 Percent of Wound Happy/Red: 100 Wound Drainage Description: Serosanguineous Wound Drainage Amount: Scant Wound Drainage Odor: None/Absent Tissue Surrounding Wound: Intact Wound General Appearance: Reddened Wound Assessment #2: Wound Number: #2 Wound Present on Admission: Yes New Wound: No Status Change of Wound: No Wound Location Body Site Modif: right Wound Location Body Site: elbow Wound Type: pressure ulcer Francis Test: Does not Francis Pressure Ulcer Stage: deep tissue injury Wound Thickness: Full Thickness Wound Length: 3.0 Wound Width: 3.0 Wound Depth: utd Percent of Wound Purple/Maroon: 100 Wound Drainage Amount: None Wound Drainage Odor: None/Absent Tissue Surrounding Wound: Intact Wound Assessment #3: Wound Number: #3 Wound Present on Admission: Yes New Wound: No Status Change of Wound: No Wound Location Body Site Modif: right Wound Location Body Site: ear Wound Type: pressure ulcer Francis Test: Does not Francis Pressure Ulcer Stage: III Wound Thickness: Full Thickness Wound Length: 2.0 Wound Width: 1.0 Wound Depth: 0.1 Percent of Wound Happy/Red: 100 Wound Drainage Description: Serosanguineous Wound Drainage Amount: Scant Wound Drainage Odor: None/Absent Tissue Surrounding Wound: Macerated Wound General Appearance: Reddened, Draining Wound Assessment #4: Wound Number: #4 Wound Present on Admission: Yes New Wound: No Status Change of Wound: No Wound Location Body Site Modif: left Wound Location Body Site: ear Wound Type: pressure ulcer Francis Test: Does not Francis Pressure Ulcer Stage: IV/unstageable Wound Thickness: Full Thickness Wound Length: 5.0 Wound Width: 3.0 Wound Depth: utd Percent of Wound Happy/Red: 60 Percent of Wound Black/Brown: 40 Wound Drainage Description: Serosanguineous Wound Drainage Amount: Moderate Wound Drainage Odor: None/Absent Tissue Surrounding Wound: Macerated Wound General Appearance: Reddened, Blackened, Draining Wound Assessment #5: Wound Number: #5 Wound Present on Admission: Yes New Wound: No Status Change of Wound: No Wound Location Body Site Modif: left Wound Location Body Site: malleolus/ankle Wound Type: pressure ulcer Francis Test: Does not Francis Pressure Ulcer Stage: IV/unstageable Wound Thickness: Full Thickness Wound Length: 3.5 Wound Width: 3.5 Wound Depth: utd Percent of Wound Bed Yellow/Wh: 40 Percent of Wound Black/Brown: 60 Wound Drainage Description: Serosanguineous Wound Drainage Amount: Scant Wound Drainage Odor: None/Absent Tissue Surrounding Wound: Macerated Wound General Appearance: Blackened, Draining, Necrotic Wound Assessment #6: Wound Number: #6 Wound Present on Admission: Yes New Wound: No Status Change of Wound: No Wound Location Body Site Modif: left, lateral Wound Location Body Site: metatarsal head - 1st Wound Type: pressure ulcer Francis Test: Does not Francis Pressure Ulcer Stage: deep tissue injury Wound Thickness: Full Thickness Wound Length: 2.0 Wound Width: 2.0 Wound Depth: utd Percent of Wound Black/Brown: 100 Wound Drainage Amount: None Wound Drainage Odor: None/Absent Tissue Surrounding Wound: Erythemic Wound General Appearance: Blackened Wound Assessment #7: Wound Number: #7 Wound Present on Admission: Yes New Wound: No Status Change of Wound: No Wound Location Body Site Modif: left Wound Location Body Site: heel Wound Type: pressure ulcer Francis Test: Does not Francis Pressure Ulcer Stage: IV/unstageable Wound Thickness: Full Thickness Wound Length: 5.5 Wound Width: 4.5 Wound Depth: utd Percent of Wound Bed Yellow/Wh: 20 Percent of Wound Black/Brown: 80 Wound Drainage Description: Serosanguineous Wound Drainage Amount: Scant Wound Drainage Odor: None/Absent Tissue Surrounding Wound: Erythemic Wound Assessment #8: Wound Number: #8 Wound Present on Admission: Yes New Wound: No Status Change of Wound: No Wound Location Body Site Modif: mid Wound Location Body Site: other - sacrococcygeal Wound Type: pressure ulcer Francis Test: Does not Francis Pressure Ulcer Stage: IV/unstageable Wound Thickness: Full Thickness Wound Length: 11.0 Wound Width: 18.0 Wound Depth: 1.0 Percent of Wound Happy/Red: 70 Percent of Wound Bed Yellow/Wh: 30 Wound Drainage Description: Serosanguineous Wound Drainage Amount: Moderate Wound Drainage Odor: None/Absent Tissue Surrounding Wound: Macerated Wound Undermining at 3:00: 1.0 Wound Undermining at 9:00: 2.5 Wound General Appearance: Reddened, Draining Wound Assessment #9: Wound Number: #9 Wound Present on Admission: Yes New Wound: No Status Change of Wound: No Wound Location Body Site Modif: left Wound Location Body Site: ischial tuberosity Wound Type: pressure ulcer Francis Test: Does not Francis Pressure Ulcer Stage: III Wound Thickness: Full Thickness Wound Length: 3.0 Wound Width: 3.0 Wound Depth: 0.1 Percent of Wound Happy/Red: 100 Wound Drainage Description: Serosanguineous Wound Drainage Amount: Scant Wound Drainage Odor: None/Absent Tissue Surrounding Wound: Erythemic Wound General Appearance: Reddened, Draining Wound Comment #1 Right knee stage II pressure ulcer #2 Right elbow DTI pressure ulcer #3 Right ear stage III pressure ulcer #4 Left ear unstageable pressure ulcer #5 Left malleolus unstageable pressure ulcer #6 Left lateral 1st metatarsal head DTI pressure ulcer #7 Left heel unstageable pressure ulcer #8 Sacral stage IV/unstageable pressure ulcer #9 Left ischial tuberosity stage III pressure ulcer #10 Multiple full thickness scar tissue on Left shoulder, Left lateral knee, Right lateral knee, Right hip and Left hip. Recommendation -Right knee stage II pressure ulcer, Right ear stage III pressure ulcer, Left ear unstageable pressure ulcer, Left heel unstageable pressure ulcer and Left ischial tuberosity stage III pressure ulcer Cleanse with saline, pat dry, apply Triad cream, cover with bordered gauze daily and PRN soiled/dislodged -Sacral IV/unstageable and left lateral malleolus unstageable pressure ulcer Cleanse with saline pat dry, apply Triad cream to periwound area, apply hydrogel to wound bed apply calcium alginate, cover with 4x4, secure with bordered gauze daily and PRN soiled/dislodged -Local wound care per protocol for DTI on right elbow and left 1st metatarsal head -Low air loss mattress -Keep clean and dry -Heel protector on both heels -Offload both heels -Optimize nutrition -Assess and f/u accordingly for any changes KENN GRACE RN May 13, 2017 03:52
[2017-05-13 04:00] VITALS: BP 108/69
[2017-05-13 05:11] LABS: BASOPHILS % (AUTO) 0.4 % (0.0-2.0); EOSINOPHILS % (AUTO) 0.7 % (0.0-3.0); LYMPHOCYTES % (AUTO) 10.1 % (20.0-45.0); MEAN CORPUSCULAR HEMOGLOBIN 27.2 PG (27.0-31.0); MEAN CORPUSCULAR VOLUME 85 FL (80-99); MEAN PLATELET VOLUME 5.5 FL (6.5-10.1); MONOCYTES % (AUTO) 9.1 % (1.0-10.0); NEUTROPHILS % (AUTO) 79.8 % (45.0-75.0); PLATELET COUNT 407 K/UL (150-450); RED CELL DISTRIBUTION WIDTH 16.6 % (11.6-14.8); WHITE BLOOD COUNT 13.5 K/UL (4.8-10.8)
[2017-05-13 05:34] LABS: ANION GAP 16 (5-15); CALCIUM 8.5 mg/dL (8.6-10.2); CARBON DIOXIDE 24 mEQ/L (20-30); CHLORIDE 95 mEQ/L (98-107); CREATININE 0.4 mg/dL (0.7-1.2); GLOMERULAR FILTRATION RATE > 60 mL/min (>60); HEMOLYSIS 2; MAGNESIUM 1.6 mg/dL (1.7-2.5); POTASSIUM 3.1 mEQ/L (3.4-4.9); SODIUM 135 mEQ/L (135-145)
[2017-05-13] MEDS: Piperacillin/Tazobactam 3.375 GM in NS 110 ML IVPB SCH ×3 (05:44→20:57)
[2017-05-13 08:00] VITALS: BP 121/69
[2017-05-13] MEDS ORDERED: KCl 10% 40mEq/30ml liquid NG ONE (09:00)
[2017-05-13] MEDS: Spironolactone 25mg tab ORAL SCH (09:25)
[2017-05-13] MEDS: Amiodarone 200mg tab GT SCH (09:25)
[2017-05-13] MEDS: Vancomycin 750mg/D5W 275ml IVPB SCH ×4 (09:27→20:58)
[2017-05-13] MEDS: levETIRAcetam 500mg/5ml Liquid GT SCH ×2 (09:27→20:57)
[2017-05-13] MEDS ORDERED: 1/2 NS 1000ml IV ONE (11:25)
[2017-05-13 12:00] VITALS: BP 97/64
--- NOTE | 2017-05-13 14:41 | Diagnostic Imaging Report ---
APPROVED REPORT CPT Code: 17644 Present Symptoms Shortness of breath BILATERAL: Imaging reveals a patent deep venous system bilaterally. There is no evidence of thrombus within the femoral, popliteal or tibial segments. The greater saphenous veins are also within normal limits. Doppler indicates normal spontaneous flow within these segments.
--- NOTE | 2017-05-13 15:21 | GI Progress Note ---
Assessment/Plan Problems: (1) Anemia ICD Codes: D64.9 - Anemia, unspecified SNOMED: 408675788 Qualifiers: Qualified Codes: D64.9 - Anemia, unspecified (2) EF of 30% (3) Feeding by G-tube ICD Codes: Z93.1 - Gastrostomy status SNOMED: 089377056, 256193884 (4) Transaminitis ICD Codes: R74.0 - Nonspecific elevation of levels of transaminase and lactic acid dehydrogenase [LDH] SNOMED: 871465319 (5) Leukocytosis ICD Codes: D72.829 - Elevated white blood cell count, unspecified SNOMED: 991621675, 852669776 Status: progressing Status Narrative Discussed with Dr. Alex. Assessment/Plan occult blood stool >> negative GT replaced. GTFs per dietary, monitor residuals monitor H&H, transfuse prn PPI for GI prophylaxis fu labs Subjective Subjective limited Objective Last 24 Hour Vital Signs Date Time Temp Pulse Resp B/P Pulse Ox O2 Delivery O2 Flow Rate FiO2 05/13/17 15:02 91 28 30 05/13/17 12:55 99 31 30 05/13/17 12:00 98.8 91 27 97/64 98 Mechanical Ventilator 30 05/13/17 12:00 30 05/13/17 12:00 90 05/13/17 11:25 101 26 30 05/13/17 09:27 103 20 30 05/13/17 09:25 101 121/69 05/13/17 08:00 97 05/13/17 08:00 99.3 101 23 121/69 97 Mechanical Ventilator 30 05/13/17 08:00 30 05/13/17 07:00 100 23 30 05/13/17 04:30 102 24 30 05/13/17 04:00 30 05/13/17 04:00 97.5 101 22 108/69 99 Mechanical Ventilator 30 05/13/17 03:53 100 05/13/17 03:05 101 23 30 05/13/17 01:06 100 25 30 05/13/17 00:42 98.9 105 25 103/64 99 Mechanical Ventilator 30 05/13/17 00:03 104 05/13/17 00:00 30 05/12/17 23:11 102 18 30 05/12/17 21:30 99 24 30 05/12/17 21:00 102 98/59 6/26/17 20:25 98.1 102 24 98/59 97 Mechanical Ventilator 30 05/12/17 20:00 30 05/12/17 19:36 99 05/12/17 19:26 101 21 30 05/12/17 16:48 102 24 30 05/12/17 16:09 97.5 100 20 128/58 99 Mechanical Ventilator 30 05/12/17 16:06 30 05/12/17 16:00 95 Intake and Output 05/12/17 05/13/17 19:00 07:00 Intake Total 775 ml 1592.0 ml Output Total 3500 ml 700 ml Balance -2725 ml 892.0 ml Intake Free Water 300 ml 300 ml IV Total 75 ml 942.0 ml Tube Feeding 50 ml 350 ml Other 350 ml Output Urine Total 3500 ml 700 ml # Bowel Movements 1 Laboratory Tests Test 05/12/17 17:05 05/13/17 03:00 Vancomycin Level Trough 30.2 ug/mL (5.0-12.0) H White Blood Count 13.5 K/UL (4.8-10.8) H Red Blood Count 3.60 M/UL (4.70-6.10) L Hemoglobin 9.8 G/DL (14.2-18.0) L Hematocrit 30.6 % (42.0-52.0) L Mean Corpuscular Volume 85 FL (80-99) Mean Corpuscular Hemoglobin 27.2 PG (27.0-31.0) Mean Corpuscular Hemoglobin Concent 32.0 G/DL (32.0-36.0) Red Cell Distribution Width 16.6 % (11.6-14.8) H Platelet Count 407 K/UL (150-450) Mean Platelet Volume 5.5 FL (6.5-10.1) L Neutrophils (%) (Auto) 79.8 % (45.0-75.0) H Lymphocytes (%) (Auto) 10.1 % (20.0-45.0) L Monocytes (%) (Auto) 9.1 % (1.0-10.0) Eosinophils (%) (Auto) 0.7 % (0.0-3.0) Basophils (%) (Auto) 0.4 % (0.0-2.0) Sodium Level 135 mEQ/L (135-145) Potassium Level 3.1 mEQ/L (3.4-4.9) L Chloride Level 95 mEQ/L (98-107) L Carbon Dioxide Level 24 mEQ/L (20-30) Anion Gap 16 (5-15) H Blood Urea Nitrogen 14 mg/dL (7-23) Creatinine 0.4 mg/dL (0.7-1.2) L Estimat Glomerular Filtration Rate > 60 mL/min (>60) Glucose Level 99 mg/dL (74-106) Calcium Level 8.5 mg/dL (8.6-10.2) L Magnesium Level 1.6 mg/dL (1.7-2.5) L Height (Feet): 5 Height (Inches): 7.00 Weight (Pounds): 123 General Appearance: alert, thin Cardiovascular: normal rate Respiratory/Chest: normal breath sounds, no respiratory distress, other - mech vent Abdominal Exam: GT site - c/d/i Lani Last N.P. May 13, 2017 15:21
[2017-05-13 16:00] VITALS: BP 109/68
--- NOTE | 2017-05-13 18:49 | Pulmonology Progress Note ---
Assessment/Plan Problems: (1) Acute on chronic respiratory failure (2) Anemia (3) Right pulmonary infiltrate on CXR (4) Chronic respiratory acidosis (5) Feeding by G-tube (6) EF of 30% Respiratory: monitor respiratory rate, adjust FIO2 Cardiac: continue to monitor HR/BP Renal: F/U I&O, keep IV fluid Infectious Disease: check cultures Gastrointestinal: continue feedings/current rate Endocrine: monitor blood sugar, check HgA1C Hematologic: monitor H/H Neurologic: PRN Morphine Affect: PRN ativan Subjective ROS Limited/Unobtainable: No Constitutional: Reports: no symptoms HEENT: Repors: no symptoms Respiratory: Reports: no symptoms Allergies: Coded Allergies: No Known Allergies (Unverified , 03/07/17) Objective Last 24 Hour Vital Signs Date Time Temp Pulse Resp B/P Pulse Ox O2 Delivery O2 Flow Rate FiO2 05/13/17 16:58 90 33 30 05/13/17 16:00 10 05/13/17 16:00 30 05/13/17 16:00 98.2 102 27 109/68 97 Mechanical Ventilator 30 05/13/17 15:02 91 28 30 05/13/17 12:55 99 31 30 05/13/17 12:00 98.8 91 27 97/64 98 Mechanical Ventilator 30 05/13/17 12:00 30 05/13/17 12:00 90 05/13/17 11:25 101 26 30 05/13/17 09:27 103 20 30 05/13/17 09:25 101 121/69 05/13/17 08:00 97 05/13/17 08:00 99.3 101 23 121/69 97 Mechanical Ventilator 30 05/13/17 08:00 30 05/13/17 07:00 100 23 30 05/13/17 04:30 102 24 30 05/13/17 04:00 30 05/13/17 04:00 97.5 101 22 108/69 99 Mechanical Ventilator 05/13/17 03:53 100 05/13/17 03:05 101 23 30 05/13/17 01:06 100 25 30 05/13/17 00:42 98.9 105 25 103/64 99 Mechanical Ventilator 30 05/13/17 00:03 104 05/13/17 00:00 30 05/12/17 23:11 102 18 30 05/12/17 21:30 99 24 30 05/12/17 21:00 102 98/59 05/12/17 20:25 98.1 102 24 98/59 97 Mechanical Ventilator 30 05/12/17 20:00 30 05/12/17 19:36 99 05/12/17 19:26 101 21 30 Intake and Output 05/12/17 05/13/17 19:00 07:00 Intake Total 775 ml 1592.0 ml Output Total 3500 ml 700 ml Balance -2725 ml 892.0 ml Intake Free Water 300 ml 300 ml IV Total 75 ml 942.0 ml Tube Feeding 50 ml 350 ml Other 350 ml Output Urine Total 3500 ml 700 ml # Bowel Movements 1 General Appearance: cachetic HEENT: status post trach Respiratory/Chest: chest wall non-tender, lungs clear Cardiovascular: normal peripheral pulses, normal rate Abdomen: normal bowel sounds, soft, non tender Extremities: no cyanosis, no clubbing Microbiology Date/Time Source Procedure Growth Status 05/11/17 01:10 Sputum Gram Stain - Final Resulted 05/11/17 01:10 Sputum Culture - Preliminary Gram Negative Bacillus 1 Resulted 05/10/17 19:55 Nasal Nares MRSA Culture - Final NO METHICILLIN RESISTANT STAPH AUREUS... Complete Laboratory Tests 05/13/17 03:00: White Blood Count 13.5H, Red Blood Count 3.60L, Hemoglobin 9.8L, Hematocrit 30.6L, Mean Corpuscular Volume 85, Mean Corpuscular Hemoglobin 27.2, Mean Corpuscular Hemoglobin Concent 32.0, Red Cell Distribution Width 16.6H, Platelet Count 407, Mean Platelet Volume 5.5L, Neutrophils (%) (Auto) 79.8H, Lymphocytes (%) (Auto) 10.1L, Monocytes (%) (Auto) 9.1, Eosinophils (%) (Auto) 0.7, Basophils (%) (Auto) 0.4, Sodium Level 135, Potassium Level 3.1L, Chloride Level 95L, Carbon Dioxide Level 24, Anion Gap 16H, Blood Urea Nitrogen 14, Creatinine 0.4L, Estimat Glomerular Filtration Rate > 60, Glucose Level 99, Calcium Level 8.5L, Magnesium Level 1.6L Current Medications Medications (Trade) Dose Ordered Sig/Tameka Route PRN Reason Start Time Stop Time Status Last Admin Dose Admin Acetaminophen (Tylenol) 650 mg Q4H PRN ORAL FEVER 05/10/17 18:15 06/09/17 18:14 Albuterol/ Ipratropium 3 ml 3 ml Q4H PRN HHN Shortness of Breath 05/10/17 18:15 05/15/17 18:14 Amiodarone HCl (Cordarone) 200 mg DAILY GT 05/11/17 09:00 06/10/17 08:59 05/13/17 09:25 Carvedilol (Coreg) 3.125 mg Q12HR GT 05/10/17 21:00 06/09/17 20:59 05/13/17 09:25 Dextrose (Dextrose 50%) STAT PRN IV Hypoglycemia 05/10/17 18:15 06/09/17 18:14 Furosemide (Lasix) 60 mg DAILY GT 05/11/17 09:00 06/10/17 08:59 05/13/17 09:25 Levetiracetam (Keppra) 500 mg Q12HR GT 05/10/17 21:00 06/09/17 20:59 05/13/17 09:27 Lorazepam (Ativan 2mg/ml 1ml) 2 mg Q2H PRN IV For Anxiety 05/10/17 18:15 05/17/17 18:14 Morphine Sulfate (Morphine Sulfate) 4 mg Q4H PRN IVP Severe Pain (Pain Scale 7-10) 05/10/17 18:15 05/17/17 18:14 05/12/17 14:18 Ondansetron HCl (Zofran) 4 mg Q6H PRN IVP Nausea & Vomiting 05/10/17 18:15 06/09/17 18:14 Piperacillin Sod/ Tazobactam Sod 3.375 gm/Sodium Chloride 110 ml @ 27.5 mls/hr Q8H IVPB 05/11/17 06:15 05/18/17 06:14 05/13/17 15:52 Polyethylene Glycol (Miralax) 17 gm DAILYPRN PRN ORAL Constipation 05/10/17 18:15 06/09/17 18:14 Sodium Chloride (0.45% NS 1000ml) 1,000 ml @ 75 mls/hr [id number] IV 05/10/17 19:00 06/09/17 18:59 05/13/17 13:50 Spironolactone (Aldactone) 25 mg DAILY ORAL 05/11/17 09:00 06/10/17 08:59 05/13/17 09:25 Vancomycin HCl 1 ea 1 ea DAILY PRN MISC PER RX PROTOCOL 05/10/17 19:15 06/09/17 19:14 Vancomycin HCl/ Dextrose (Vancomycin/D5W) 275 ml @ 183.708 mls/hr Q12HR@0800,2000 IVPB 05/13/17 08:00 05/18/17 07:59 05/13/17 09:27 ODETTE SMILEY May 13, 2017 18:49
--- NOTE | 2017-05-13 19:25 | Infectious Diseases Prog Note ---
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 - SCx GNR - CXR: Worsening atelectasis versus pneumonia right lung base - h/o Provid a+ XDR PSA and Providencia // Stage IV sacral decubitus, not grossly infected - surveillance WCx GNR x2, strep, CONS - h/o polymicrobial MDR colonization // HCV Ab+ - Abdominal ultrasound of liver : unremarkable // Probable sepsis // Leukocytosis - improved // Low grade fever x1 - resolved Severe anemia SP PRBCs Sinus tachycardia Chronic VDRF SP trach, PEG h/o cardiac arrest, anoxic encephalopathy Cardiomyopathy SP defibrillator placement Paroxysmal atrial fibrillation Cachexia / severe protein-calorie malnutrition [place] resident NKDA Full Code PLAN: continue empiric IV vancomycin, zosyn d# 4 pending cultures ( SP Merrem and Colistin INH d# 6 / ) ( 03/13 SP vancomycin and Zosyn d# 5 ) f/u cultures, adjust ABX accordingly Monitor CBC, temperatures Monitor CMP Monitor CXR vent support, trach care, aspiration precautions wound care transfuse prn Subjective Allergies: Coded Allergies: No Known Allergies (Unverified , 03/07/17) Subjective low grade fever x1 resolved. WBC improved Objective Vital Signs Last 24 Hour Vital Signs Date Time Temp Pulse Resp B/P Pulse Ox O2 Delivery O2 Flow Rate FiO2 05/13/17 19:10 101 25 30 05/13/17 16:58 90 33 30 05/13/17 16:00 10 05/13/17 16:00 30 05/13/17 16:00 98.2 102 27 109/68 97 Mechanical Ventilator 30 05/13/17 15:02 91 28 30 05/13/17 12:55 99 31 30 05/13/17 12:00 98.8 91 27 97/64 98 Mechanical Ventilator 30 05/13/17 12:00 30 05/13/17 12:00 90 05/13/17 11:25 101 26 30 05/13/17 09:27 103 20 30 05/13/17 09:25 101 121/69 05/13/17 08:00 97 05/13/17 08:00 99.3 101 23 121/69 97 Mechanical Ventilator 30 05/13/17 08:00 30 05/13/17 07:00 100 23 30 05/13/17 04:30 102 24 30 05/13/17 04:00 30 05/13/17 04:00 97.5 101 22 108/69 99 Mechanical Ventilator 30 05/13/17 03:53 100 05/13/17 03:05 101 23 30 05/13/17 01:06 100 25 30 05/13/17 00:42 98.9 105 25 103/64 99 Mechanical Ventilator 30 05/13/17 00:03 104 05/13/17 00:00 30 05/12/17 23:11 102 18 30 05/12/17 21:30 99 24 30 05/12/17 21:00 102 98/59 05/12/17 20:25 98.1 102 24 98/59 97 Mechanical Ventilator 30 05/12/17 20:00 30 05/12/17 19:36 99 05/12/17 19:26 101 21 30 Height (Feet): 5 Height (Inches): 7.00 Weight (Pounds): 123 General Appearance: no acute distress HEENT: status post trach Respiratory/Chest: decreased breath sounds Cardiovascular: normal rate, regular rhythm Abdomen: normal bowel sounds, soft, non tender, non distended Microbiology Date/Time Source Procedure Growth Status 05/11/17 01:10 Sputum Gram Stain - Final Resulted 05/11/17 01:10 Sputum Culture - Preliminary Gram Negative Bacillus 1 Resulted 05/10/17 19:55 Nasal Nares MRSA Culture - Final NO METHICILLIN RESISTANT STAPH AUREUS... Complete Laboratory Tests Test 05/13/17 03:00 White Blood Count 13.5 K/UL (4.8-10.8) H Red Blood Count 3.60 M/UL (4.70-6.10) L Hemoglobin 9.8 G/DL (14.2-18.0) L Hematocrit 30.6 % (42.0-52.0) L Mean Corpuscular Volume 85 FL (80-99) Mean Corpuscular Hemoglobin 27.2 PG (27.0-31.0) Mean Corpuscular Hemoglobin Concent 32.0 G/DL (32.0-36.0) Red Cell Distribution Width 16.6 % (11.6-14.8) H Platelet Count 407 K/UL (150-450) Mean Platelet Volume 5.5 FL (6.5-10.1) L Neutrophils (%) (Auto) 79.8 % (45.0-75.0) H Lymphocytes (%) (Auto) 10.1 % (20.0-45.0) L Monocytes (%) (Auto) 9.1 % (1.0-10.0) Eosinophils (%) (Auto) 0.7 % (0.0-3.0) Basophils (%) (Auto) 0.4 % (0.0-2.0) Sodium Level 135 mEQ/L (135-145) Potassium Level 3.1 mEQ/L (3.4-4.9) L Chloride Level 95 mEQ/L (98-107) L Carbon Dioxide Level 24 mEQ/L (20-30) Anion Gap 16 (5-15) H Blood Urea Nitrogen 14 mg/dL (7-23) Creatinine 0.4 mg/dL (0.7-1.2) L Estimat Glomerular Filtration Rate > 60 mL/min (>60) Glucose Level 99 mg/dL (74-106) Calcium Level 8.5 mg/dL (8.6-10.2) L Magnesium Level 1.6 mg/dL (1.7-2.5) L Current Medications Medications (Trade) Dose Ordered Sig/Tameka Route PRN Reason Start Time Stop Time Status Last Admin Dose Admin Acetaminophen (Tylenol) 650 mg Q4H PRN ORAL FEVER 05/10/17 18:15 06/09/17 18:14 Albuterol/ Ipratropium 3 ml 3 ml Q4H PRN HHN Shortness of Breath 05/10/17 18:15 05/15/17 18:14 Amiodarone HCl (Cordarone) 200 mg DAILY GT 05/11/17 09:00 06/10/17 08:59 05/13/17 09:25 Ascorbic Acid (Vitamin C) 500 mg DAILY ORAL 05/14/17 09:00 06/13/17 08:59 Carvedilol (Coreg) 3.125 mg Q12HR GT 05/10/17 21:00 06/09/17 20:59 05/13/17 09:25 Dextrose (Dextrose 50%) STAT PRN IV Hypoglycemia 05/10/17 18:15 06/09/17 18:14 Furosemide (Lasix) 60 mg DAILY GT 05/11/17 09:00 06/10/17 08:59 05/13/17 09:25 Levetiracetam (Keppra) 500 mg Q12HR GT 05/10/17 21:00 06/09/17 20:59 05/13/17 09:27 Lorazepam (Ativan 2mg/ml 1ml) 2 mg Q2H PRN IV For Anxiety 05/10/17 18:15 05/17/17 18:14 Morphine Sulfate (Morphine Sulfate) 4 mg Q4H PRN IVP Severe Pain (Pain Scale 7-10) 05/10/17 18:15 05/17/17 18:14 05/12/17 14:18 Ondansetron HCl (Zofran) 4 mg Q6H PRN IVP Nausea & Vomiting 05/10/17 18:15 06/09/17 18:14 Piperacillin Sod/ Tazobactam Sod 3.375 gm/Sodium Chloride 110 ml @ 27.5 mls/hr Q8H IVPB 05/11/17 06:15 05/18/17 06:14 05/13/17 15:52 Polyethylene Glycol (Miralax) 17 gm DAILYPRN PRN ORAL Constipation 05/10/17 18:15 06/09/17 18:14 Sodium Chloride (0.45% NS 1000ml) 1,000 ml @ 75 mls/hr [id number] IV 05/10/17 19:00 06/09/17 18:59 05/13/17 13:50 Spironolactone (Aldactone) 25 mg DAILY ORAL 05/11/17 09:00 06/10/17 08:59 05/13/17 09:25 Vancomycin HCl 1 ea 1 ea DAILY PRN MISC PER RX PROTOCOL 05/10/17 19:15 06/09/17 19:14 Vancomycin HCl/ Dextrose (Vancomycin/D5W) 275 ml @ 183.708 mls/hr Q12HR@0800,2000 IVPB 05/13/17 08:00 05/18/17 07:59 05/13/17 09:27 ROXANNE BELLO May 13, 2017 19:25
[2017-05-13 20:51] VITALS: BP 101/62
[2017-05-14] VITALS: BP 102/65
[2017-05-14] MEDS: Morphine Sulfate 4mg/ml Inj IVP PRN (00:17)
[2017-05-14 04:00] VITALS: BP 101/68
[2017-05-14] MEDS: Piperacillin/Tazobactam 3.375 GM in NS 110 ML IVPB SCH (05:09)
[2017-05-14 05:55] LABS: BASOPHILS % (AUTO) 0.5 % (0.0-2.0); EOSINOPHILS % (AUTO) 0.6 % (0.0-3.0); LYMPHOCYTES % (AUTO) 11.7 % (20.0-45.0); MEAN CORPUSCULAR HGB CONC 31.7 G/DL (32.0-36.0); MEAN CORPUSCULAR VOLUME 85 FL (80-99); MEAN PLATELET VOLUME 5.4 FL (6.5-10.1); MONOCYTES % (AUTO) 10.2 % (1.0-10.0); NEUTROPHILS % (AUTO) 77.1 % (45.0-75.0); PLATELET COUNT 440 K/UL (150-450); RED BLOOD COUNT 3.54 M/UL (4.70-6.10); RED CELL DISTRIBUTION WIDTH 16.8 % (11.6-14.8); WHITE BLOOD COUNT 15.9 K/UL (4.8-10.8)
[2017-05-14 06:12] LABS: ANION GAP 16 (5-15); CALCIUM 8.4 mg/dL (8.6-10.2); CARBON DIOXIDE 25 mEQ/L (20-30); CHLORIDE 96 mEQ/L (98-107); CREATININE 0.4 mg/dL (0.7-1.2); GLOMERULAR FILTRATION RATE > 60 mL/min (>60); HEMOLYSIS 2; MAGNESIUM 1.7 mg/dL (1.7-2.5); POTASSIUM 2.8 mEQ/L (3.4-4.9); SODIUM 137 mEQ/L (135-145)
[2017-05-14 08:00] VITALS: BP 93/50
[2017-05-14] MEDS: Vancomycin 750mg/D5W 275ml IVPB SCH ×2 (09:11)
[2017-05-14] MEDS: Ascorbic Acid 500mg tab ORAL SCH (09:11)
[2017-05-14] MEDS: levETIRAcetam 500mg/5ml Liquid GT SCH ×2 (09:11→21:44)
[2017-05-14] MEDS: Spironolactone 25mg tab ORAL SCH (09:12)
[2017-05-14] MEDS: KCl 10% 40mEq/30ml liquid GT SCH ×2 (09:13→14:09)
[2017-05-14] MEDS: Amiodarone 200mg tab GT SCH (09:13)
--- NOTE | 2017-05-14 10:52 | Infectious Diseases Prog Note ---
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 - SCx : MDR - ACB - CXR: Worsening atelectasis versus pneumonia right lung base - h/o Provid a+ XDR PSA and Providencia // Stage IV sacral decubitus, not grossly infected - surveillance WCx GNR x2, strep, CONS - h/o polymicrobial MDR colonization // HCV Ab+ - Abdominal ultrasound of liver : unremarkable // Probable sepsis // Leukocytosis: improving // Low grade fever x1 Severe anemia SP PRBCs Sinus tachycardia Chronic VDRF SP trach, PEG h/o cardiac arrest, anoxic encephalopathy Cardiomyopathy SP defibrillator placement Paroxysmal atrial fibrillation Cachexia / severe protein-calorie malnutrition [place] resident NKDA Full Code PLAN: IV vancomycin, Zosyn d# 5, change to Tygacil and Colistin d# / ( SP Merrem and Colistin INH d# / ) ( 03/13 SP vancomycin and Zosyn d# 5 ) f/u cultures, adjust ABX accordingly Monitor CBC, temperatures Monitor CMP Monitor CXR vent support, trach care, aspiration precautions wound care transfuse prn Subjective Constitutional: Denies: anorexia, chills, drenching sweats, fatigue, fever, no symptoms, other Allergies: Coded Allergies: No Known Allergies (Unverified , 03/07/17) Objective Vital Signs Last 24 Hour Vital Signs Date Time Temp Pulse Resp B/P Pulse Ox O2 Delivery O2 Flow Rate FiO2 05/14/17 10:35 88 25 30 05/14/17 09:12 81 110/46 05/14/17 08:46 103 24 30 05/14/17 08:00 98.2 101 26 93/50 99 Mechanical Ventilator 30 05/14/17 08:00 30 05/14/17 08:00 103 05/14/17 06:28 108 29 30 05/14/17 05:16 99 22 30 05/14/17 04:00 98.3 102 26 101/68 97 Mechanical Ventilator 30 05/14/17 04:00 30 05/14/17 04:00 98 05/14/17 03:04 105 20 30 05/14/17 01:18 102 23 30 05/14/17 01:00 30 05/14/17 00:00 100 05/14/17 00:00 98.1 100 24 102/65 100 Mechanical Ventilator 30 05/13/17 23:02 101 28 30 05/13/17 21:20 95 18 30 05/13/17 21:00 95 101/62 05/13/17 20:51 98.7 101 28 101/62 100 Mechanical Ventilator 30 05/13/17 20:00 30 05/13/17 20:00 101 05/13/17 19:10 101 25 30 05/13/17 16:58 90 33 30 05/13/17 16:00 10 05/13/17 16:00 30 05/13/17 16:00 98.2 102 27 109/68 97 Mechanical Ventilator 30 05/13/17 15:02 91 28 30 05/13/17 12:55 99 31 30 05/13/17 12:00 98.8 91 27 97/64 98 Mechanical Ventilator 30 05/13/17 12:00 30 05/13/17 12:00 90 05/13/17 11:25 101 26 30 Height (Feet): 5 Height (Inches): 7.00 Weight (Pounds): 121 HEENT: atraumatic Respiratory/Chest: normal breath sounds Cardiovascular: normal rate Abdomen: soft, non tender Laboratory Tests Test 05/14/17 03:25 White Blood Count 15.9 K/UL (4.8-10.8) H Red Blood Count 3.54 M/UL (4.70-6.10) L Hemoglobin 9.6 G/DL (14.2-18.0) L Hematocrit 30.2 % (42.0-52.0) L Mean Corpuscular Volume 85 FL (80-99) Mean Corpuscular Hemoglobin 27.0 PG (27.0-31.0) Mean Corpuscular Hemoglobin Concent 31.7 G/DL (32.0-36.0) L Red Cell Distribution Width 16.8 % (11.6-14.8) H Platelet Count 440 K/UL (150-450) Mean Platelet Volume 5.4 FL (6.5-10.1) L Neutrophils (%) (Auto) 77.1 % (45.0-75.0) H Lymphocytes (%) (Auto) 11.7 % (20.0-45.0) L Monocytes (%) (Auto) 10.2 % (1.0-10.0) H Eosinophils (%) (Auto) 0.6 % (0.0-3.0) Basophils (%) (Auto) 0.5 % (0.0-2.0) Sodium Level 137 mEQ/L (135-145) Potassium Level 2.8 mEQ/L (3.4-4.9) L Chloride Level 96 mEQ/L (98-107) L Carbon Dioxide Level 25 mEQ/L (20-30) Anion Gap 16 (5-15) H Blood Urea Nitrogen 11 mg/dL (7-23) Creatinine 0.4 mg/dL (0.7-1.2) L Estimat Glomerular Filtration Rate > 60 mL/min (>60) Glucose Level 104 mg/dL (74-106) Calcium Level 8.4 mg/dL (8.6-10.2) L Magnesium Level 1.7 mg/dL (1.7-2.5) Current Medications Medications (Trade) Dose Ordered Sig/Tameka Route PRN Reason Start Time Stop Time Status Last Admin Dose Admin Acetaminophen (Tylenol) 650 mg Q4H PRN ORAL FEVER 05/10/17 18:15 06/09/17 18:14 Albuterol/ Ipratropium 3 ml 3 ml Q4H PRN HHN Shortness of Breath 05/10/17 18:15 05/15/17 18:14 Amiodarone HCl (Cordarone) 200 mg DAILY GT 05/11/17 09:00 06/10/17 08:59 05/14/17 09:13 Ascorbic Acid (Vitamin C) 500 mg DAILY ORAL 05/14/17 09:00 06/13/17 08:59 05/14/17 09:11 Carvedilol (Coreg) 3.125 mg Q12HR GT 05/10/17 21:00 06/09/17 20:59 05/14/17 09:12 Dextrose (Dextrose 50%) STAT PRN IV Hypoglycemia 05/10/17 18:15 06/09/17 18:14 Furosemide (Lasix) 60 mg DAILY GT 05/11/17 09:00 06/10/17 08:59 05/14/17 09:12 Levetiracetam (Keppra) 500 mg Q12HR GT 05/10/17 21:00 06/09/17 20:59 05/14/17 09:11 Lorazepam (Ativan 2mg/ml 1ml) 2 mg Q2H PRN IV For Anxiety 05/10/17 18:15 05/17/17 18:14 Morphine Sulfate (Morphine Sulfate) 4 mg Q4H PRN IVP Severe Pain (Pain Scale 7-10) 05/10/17 18:15 05/17/17 18:14 05/14/17 00:17 Ondansetron HCl (Zofran) 4 mg Q6H PRN IVP Nausea & Vomiting 05/10/17 18:15 06/09/17 18:14 Piperacillin Sod/ Tazobactam Sod 3.375 gm/Sodium Chloride 110 ml @ 27.5 mls/hr Q8H IVPB 05/11/17 06:15 05/18/17 06:14 05/14/17 05:09 Polyethylene Glycol (Miralax) 17 gm DAILYPRN PRN ORAL Constipation 05/10/17 18:15 06/09/17 18:14 Potassium Chloride (KCl 10% 40mEq Oral solution) 50 meq Q6H GT 05/14/17 09:00 05/14/17 15:01 05/14/17 09:13 Sodium Chloride (0.45% NS 1000ml) 1,000 ml @ 75 mls/hr [id number] IV 05/10/17 19:00 06/09/17 18:59 05/14/17 03:00 Spironolactone (Aldactone) 25 mg DAILY ORAL 05/11/17 09:00 06/10/17 08:59 05/14/17 09:12 Vancomycin HCl 1 ea 1 ea DAILY PRN MISC PER RX PROTOCOL 05/10/17 19:15 06/09/17 19:14 Vancomycin HCl/ Dextrose (Vancomycin/D5W) 275 ml @ 183.708 mls/hr Q12HR@0800,2000 IVPB 05/13/17 08:00 05/18/17 07:59 05/14/17 09:11 MARCUS PA M.D. May 14, 2017 10:52
--- NOTE | 2017-05-14 11:44 | GI Progress Note ---
Assessment/Plan Problems: (1) Anemia ICD Codes: D64.9 - Anemia, unspecified SNOMED: 165247569 Qualifiers: Qualified Codes: D64.9 - Anemia, unspecified (2) EF of 30 (3) Feeding by G-tube ICD Codes: Z93.1 - Gastrostomy status SNOMED: 057361967, 626319405 (4) Transaminitis ICD Codes: R74.0 - Nonspecific elevation of levels of transaminase and lactic acid dehydrogenase [LDH] SNOMED: 257580781 (5) Leukocytosis ICD Codes: D72.829 - Elevated white blood cell count, unspecified SNOMED: 080657649, 501666264 Status: stable Status Narrative Discussed with Dr. Alex. Assessment/Plan occult blood stool >> negative x 2 GT replaced. GTFs per dietary, monitor residuals monitor H&H, transfuse prn PPI for GI prophylaxis abx fu labs Subjective Subjective limited Objective Last 24 Hour Vital Signs Date Time Temp Pulse Resp B/P Pulse Ox O2 Delivery O2 Flow Rate FiO2 05/14/17 10:35 88 25 30 05/14/17 09:12 81 110/46 05/14/17 08:46 103 24 30 05/14/17 08:00 98.2 101 26 93/50 99 Mechanical Ventilator 30 05/14/17 08:00 30 05/14/17 08:00 103 05/14/17 06:28 108 29 30 05/14/17 05:16 99 22 30 05/14/17 04:00 98.3 102 26 101/68 97 Mechanical Ventilator 30 05/14/17 04:00 30 05/14/17 04:00 98 05/14/17 03:04 105 20 30 05/14/17 01:18 102 23 30 05/14/17 01:00 30 05/14/17 00:00 100 05/14/17 00:00 98.1 100 24 102/65 100 Mechanical Ventilator 30 05/13/17 23:02 101 28 30 05/13/17 21:20 95 18 30 05/13/17 21:00 95 101/62 05/13/17 20:51 98.7 101 28 101/62 100 Mechanical Ventilator 30 05/13/17 20:00 30 05/13/17 20:00 101 05/13/17 19:10 101 25 30 05/13/17 16:58 90 33 30 05/13/17 16:00 10 05/13/17 16:00 30 05/13/17 16:00 98.2 102 27 109/68 97 Mechanical Ventilator 30 05/13/17 15:02 91 28 30 05/13/17 12:55 99 31 30 05/13/17 12:00 98.8 91 27 97/64 98 Mechanical Ventilator 30 05/13/17 12:00 30 05/13/17 12:00 90 Intake and Output 05/13/17 05/14/17 19:00 07:00 Intake Total 2268.408 ml 1935.501 ml Output Total 2750 ml 300 ml Balance -481.592 ml 1635.501 ml Intake Free Water 300 ml 200 ml IV Total 1518.408 ml 1115.501 ml Tube Feeding 450 ml 590 ml Other 30 ml Output Urine Total 2750 ml 300 ml Laboratory Tests Test 05/14/17 03:25 White Blood Count 15.9 K/UL (4.8-10.8) H Red Blood Count 3.54 M/UL (4.70-6.10) L Hemoglobin 9.6 G/DL (14.2-18.0) L Hematocrit 30.2 % (42.0-52.0) L Mean Corpuscular Volume 85 FL (80-99) Mean Corpuscular Hemoglobin 27.0 PG (27.0-31.0) Mean Corpuscular Hemoglobin Concent 31.7 G/DL (32.0-36.0) L Red Cell Distribution Width 16.8 % (11.6-14.8) H Platelet Count 440 K/UL (150-450) Mean Platelet Volume 5.4 FL (6.5-10.1) L Neutrophils (%) (Auto) 77.1 % (45.0-75.0) H Lymphocytes (%) (Auto) 11.7 % (20.0-45.0) L Monocytes (%) (Auto) 10.2 % (1.0-10.0) H Eosinophils (%) (Auto) 0.6 % (0.0-3.0) Basophils (%) (Auto) 0.5 % (0.0-2.0) Sodium Level 137 mEQ/L (135-145) Potassium Level 2.8 mEQ/L (3.4-4.9) L Chloride Level 96 mEQ/L (98-107) L Carbon Dioxide Level 25 mEQ/L (20-30) Anion Gap 16 (5-15) H Blood Urea Nitrogen 11 mg/dL (7-23) Creatinine 0.4 mg/dL (0.7-1.2) L Estimat Glomerular Filtration Rate > 60 mL/min (>60) Glucose Level 104 mg/dL (74-106) Calcium Level 8.4 mg/dL (8.6-10.2) L Magnesium Level 1.7 mg/dL (1.7-2.5) Height (Feet): 5 Height (Inches): 7.00 Weight (Pounds): 121 General Appearance: no apparent distress, alert Cardiovascular: normal rate Respiratory/Chest: other - mech vent Abdominal Exam: GT site - c/d/i Lani Last N.P. May 14, 2017 11:44
[2017-05-14 12:00] VITALS: BP 91/55
[2017-05-14] MEDS ORDERED: Tigecycline 100 MG in D5W 110 ML IVPB ONE (14:00)
[2017-05-14] MEDS: Colistin for inhalation INH SCH ×2 (14:05→21:27)
[2017-05-14 16:00] VITALS: BP 96/60
--- NOTE | 2017-05-14 16:56 | Pulmonology Progress Note ---
Assessment/Plan Problems: (1) Acute on chronic respiratory failure (2) Anemia (3) Right pulmonary infiltrate on CXR (4) Chronic respiratory acidosis (5) Feeding by G-tube (6) EF of 30 Assessment/Plan: still tachycardic and wbc still high, abx was just changed by ID, f/2 wbc, and cxr in am. IV vancomycin, Zosyn d# 5, change to Tygacil and Colistin d# / ( SP Merrem and Colistin INH d# ) ( 03/13 SP vancomycin and Zosyn d# 5 ) Respiratory: monitor respiratory rate, adjust FIO2, CXR Renal: F/U I&O, keep IV fluid Infectious Disease: check cultures Gastrointestinal: continue feedings/current rate, hold feedings Endocrine: monitor blood sugar, check TSH Hematologic: monitor H/H Neurologic: PRN Morphine Affect: PRN ativan Prophylaxis: Protonix Notes Reviewed: cardio, renal Subjective Constitutional: Reports: no symptoms HEENT: Repors: no symptoms Respiratory: Reports: no symptoms Cardiovascular: Reports: no symptoms Gastrointestinal/Abdominal: Reports: no symptoms Genitourinary: Reports: no symptoms Allergies: Coded Allergies: No Known Allergies (Unverified , 03/07/17) Objective Last 24 Hour Vital Signs Date Time Temp Pulse Resp B/P Pulse Ox O2 Delivery O2 Flow Rate FiO2 05/14/17 16:00 98.1 105 22 96/60 98 Mechanical Ventilator 30 05/14/17 16:00 105 05/14/17 16:00 30 05/14/17 14:31 91 24 30 05/14/17 14:07 101 20 100 Mechanical Ventilator 30 05/14/17 13:55 98 20 Mechanical Ventilator 30 05/14/17 12:41 103 26 30 05/14/17 12:00 101 05/14/17 12:00 30 05/14/17 12:00 98.8 100 24 91/55 100 Mechanical Ventilator 30 05/14/17 10:35 88 25 30 05/14/17 09:12 81 110/46 05/14/17 08:46 103 24 30 05/14/17 08:00 98.2 101 26 93/50 99 Mechanical Ventilator 30 05/14/17 08:00 30 05/14/17 08:00 103 05/14/17 06:28 108 29 30 05/14/17 05:16 99 22 30 05/14/17 04:00 98.3 102 26 101/68 97 Mechanical Ventilator 30 05/14/17 04:00 30 05/14/17 04:00 98 05/14/17 03:04 105 20 30 05/14/17 01:18 102 23 30 05/14/17 01:00 30 05/14/17 00:00 100 05/14/17 00:00 98.1 100 24 102/65 100 Mechanical Ventilator 30 05/13/17 23:02 101 28 30 05/13/17 21:20 95 18 30 05/13/17 21:00 95 101/62 05/13/17 20:51 98.7 101 28 101/62 100 Mechanical Ventilator 30 05/13/17 20:00 30 05/13/17 20:00 101 05/13/17 19:10 101 25 30 05/13/17 16:58 90 33 30 Intake and Output 05/13/17 05/14/17 19:00 07:00 Intake Total 2268.408 ml 1935.501 ml Output Total 2750 ml 300 ml Balance -481.592 ml 1635.501 ml Intake Free Water 300 ml 200 ml IV Total 1518.408 ml 1115.501 ml Tube Feeding 450 ml 590 ml Other 30 ml Output Urine Total 2750 ml 300 ml General Appearance: WD/WN HEENT: normocephalic, atraumatic Respiratory/Chest: chest wall non-tender, lungs clear Cardiovascular: normal peripheral pulses, normal rate Abdomen: normal bowel sounds, no organomegaly Extremities: no cyanosis, no clubbing Laboratory Tests 05/14/17 03:25: White Blood Count 15.9H, Red Blood Count 3.54L, Hemoglobin 9.6L, Hematocrit 30.2L, Mean Corpuscular Volume 85, Mean Corpuscular Hemoglobin 27.0, Mean Corpuscular Hemoglobin Concent 31.7L, Red Cell Distribution Width 16.8H, Platelet Count 440, Mean Platelet Volume 5.4L, Neutrophils (%) (Auto) 77.1H, Lymphocytes (%) (Auto) 11.7L, Monocytes (%) (Auto) 10.2H, Eosinophils (%) (Auto ) 0.6, Basophils (%) (Auto) 0.5, Sodium Level 137, Potassium Level 2.8L, Chloride Level 96L, Carbon Dioxide Level 25, Anion Gap 16H, Blood Urea Nitrogen 11, Creatinine 0.4L, Estimat Glomerular Filtration Rate > 60, Glucose Level 104 , Calcium Level 8.4L, Magnesium Level 1.7 Current Medications Medications (Trade) Dose Ordered Sig/Tameka Route PRN Reason Start Time Stop Time Status Last Admin Dose Admin Acetaminophen (Tylenol) 650 mg Q4H PRN ORAL FEVER 05/10/17 18:15 06/09/17 18:14 Albuterol/ Ipratropium 3 ml 3 ml Q4H PRN HHN Shortness of Breath 05/10/17 18:15 05/15/17 18:14 Amiodarone HCl (Cordarone) 200 mg DAILY GT 05/11/17 09:00 06/10/17 08:59 05/14/17 09:13 Ascorbic Acid 500 mg 500 mg DAILY ORAL 05/14/17 09:00 06/13/17 08:59 05/14/17 09:11 Carvedilol (Coreg) 3.125 mg Q12HR GT 05/10/17 21:00 06/09/17 20:59 05/14/17 09:12 Colistimethate Sodium (Colistin *inhalation use only*) 150 mg Q12HR@10,22 INH 05/14/17 13:00 05/28/17 12:59 05/14/17 14:05 Dextrose (Dextrose 50%) STAT PRN IV Hypoglycemia 05/10/17 18:15 06/09/17 18:14 Furosemide (Lasix) 60 mg DAILY GT 05/11/17 09:00 06/10/17 08:59 05/14/17 09:12 Levetiracetam (Keppra) 500 mg Q12HR GT 05/10/17 21:00 06/09/17 20:59 05/14/17 09:11 Lorazepam (Ativan 2mg/ml 1ml) 2 mg Q2H PRN IV For Anxiety 05/10/17 18:15 05/17/17 18:14 Morphine Sulfate (Morphine Sulfate) 4 mg Q4H PRN IVP Severe Pain (Pain Scale 7-10) 05/10/17 18:15 05/17/17 18:14 05/14/17 00:17 Ondansetron HCl (Zofran) 4 mg Q6H PRN IVP Nausea & Vomiting 05/10/17 18:15 06/09/17 18:14 Polyethylene Glycol (Miralax) 17 gm DAILYPRN PRN ORAL Constipation 05/10/17 18:15 06/09/17 18:14 Sodium Chloride (0.45% NS 1000ml) 1,000 ml @ 75 mls/hr [id number] IV 05/10/17 19:00 06/09/17 18:59 05/14/17 16:23 Spironolactone (Aldactone) 25 mg DAILY ORAL 05/11/17 09:00 06/10/17 08:59 05/14/17 09:12 Tigecycline/ Dextrose (Tygacil/D5W) 110 ml @ 220 mls/hr EVERY 12 HOURS IVPB 05/14/17 23:00 05/28/17 22:59 ODETTE SMILEY May 14, 2017 16:56
[2017-05-14 20:00] VITALS: BP 108/57
[2017-05-14] MEDS: Tigecycline 50 MG in D5W 110 ML IVPB SCH (22:00)
[2017-05-15] VITALS: BP 99/59
[2017-05-15 04:00] VITALS: BP 105/64
[2017-05-15] MEDS: Colistin for inhalation INH SCH ×2 (07:27→23:11)
[2017-05-15 08:00] VITALS: BP 99/68
[2017-05-15] MEDS: levETIRAcetam 500mg/5ml Liquid GT SCH ×2 (09:00→20:33)
[2017-05-15] MEDS: Ascorbic Acid 500mg tab ORAL SCH (09:36)
[2017-05-15] MEDS: Amiodarone 200mg tab GT SCH (09:37)
[2017-05-15] MEDS: Tigecycline 50 MG in D5W 110 ML IVPB SCH ×2 (09:44→20:33)
[2017-05-15] MEDS: Spironolactone 25mg tab ORAL SCH (09:44)
--- NOTE | 2017-05-15 11:25 | GI Progress Note ---
Assessment/Plan Problems: (1) Anemia ICD Codes: D64.9 - Anemia, unspecified SNOMED: 497949343 Qualifiers: Qualified Codes: D64.9 - Anemia, unspecified (2) EF of 30 (3) Feeding by G-tube ICD Codes: Z93.1 - Gastrostomy status SNOMED: 493765651, 734919056 (4) Transaminitis ICD Codes: R74.0 - Nonspecific elevation of levels of transaminase and lactic acid dehydrogenase [LDH] SNOMED: 337318743 (5) Leukocytosis ICD Codes: D72.829 - Elevated white blood cell count, unspecified SNOMED: 753234676, 836364889 Status: stable Status Narrative Discussed with Dr. Alex. Assessment/Plan occult blood stool >> negative x 2 stable H&H, transfuse prn GT replaced. GTFs per dietary, monitor residuals PPI for GI prophylaxis abx fu labs Subjective Subjective limited Objective Last 24 Hour Vital Signs Date Time Temp Pulse Resp B/P Pulse Ox O2 Delivery O2 Flow Rate FiO2 05/15/17 09:37 101 99/68 05/15/17 08:47 97 16 30 05/15/17 08:00 95 05/15/17 08:00 97.0 95 16 99/68 100 Mechanical Ventilator 30.0 05/15/17 08:00 30 05/15/17 07:37 109 29 100 Mechanical Ventilator 30 05/15/17 07:27 93 28 30 05/15/17 07:27 109 28 98 Mechanical Ventilator 30 05/15/17 05:06 92 21 30 05/15/17 04:00 30 05/15/17 04:00 98.1 98 21 105/64 100 Mechanical Ventilator 30 05/15/17 04:00 94 05/15/17 03:29 97.9 05/15/17 03:29 97.9 05/15/17 03:20 96 22 30 05/15/17 00:56 106 29 30 05/15/17 00:00 30 05/15/17 00:00 99.1 103 25 99/59 100 Mechanical Ventilator 30 05/15/17 00:00 99.4 05/15/17 00:00 102 05/14/17 22:53 115 27 30 05/14/17 22:50 98.7 05/14/17 21:48 99.7 05/14/17 21:42 115 29 100 Mechanical Ventilator 30 05/14/17 21:27 111 28 98 Mechanical Ventilator 30 05/14/17 21:27 111 28 30 05/14/17 21:00 111 108/57 05/14/17 20:00 30 05/14/17 20:00 105 05/14/17 20:00 99.6 105 27 108/57 99 Mechanical Ventilator 30 05/14/17 19:07 106 30 30 05/14/17 16:58 108 25 30 05/14/17 16:00 98.1 105 22 96/60 98 Mechanical Ventilator 30 05/14/17 16:00 105 05/14/17 16:00 30 05/14/17 14:31 91 24 30 05/14/17 14:07 101 20 100 Mechanical Ventilator 30 05/14/17 13:55 98 20 Mechanical Ventilator 30 05/14/17 12:41 103 26 30 05/14/17 12:00 101 05/14/17 12:00 30 05/14/17 12:00 98.8 100 24 91/55 100 Mechanical Ventilator 30 Intake and Output 05/14/17 05/15/17 19:00 07:00 Intake Total 2318.2 ml 1877.5 ml Output Total 2500 ml Balance -181.8 ml 1877.5 ml Intake Free Water 200 ml 300 ml IV Total 1258.2 ml 862.5 ml Tube Feeding 760 ml 715 ml Other 100 ml Output Urine Total 2500 ml # Bowel Movements 2 3 Height (Feet): 5 Height (Inches): 7.00 Weight (Pounds): 121 General Appearance: no apparent distress, alert Cardiovascular: normal rate Respiratory/Chest: normal breath sounds, no respiratory distress Abdominal Exam: site - c/d/i Lani Last N.P. May 15, 2017 11:25
[2017-05-15 11:53] LABS: MEAN CORPUSCULAR HGB CONC 31.6 G/DL (32.0-36.0); MEAN CORPUSCULAR VOLUME 85 FL (80-99); MEAN PLATELET VOLUME 5.5 FL (6.5-10.1); PLATELET COUNT 491 K/UL (150-450); RED BLOOD COUNT 3.98 M/UL (4.70-6.10); WHITE BLOOD COUNT 18.4 K/UL (4.8-10.8)
[2017-05-15 12:07] VITALS: BP 101/67
[2017-05-15 12:15] LABS: ANION GAP 13 (5-15); CALCIUM 8.7 mg/dL (8.6-10.2); CARBON DIOXIDE 26 mEQ/L (20-30); CHLORIDE 97 mEQ/L (98-107); CREATININE 0.5 mg/dL (0.7-1.2); GLOMERULAR FILTRATION RATE > 60 mL/min (>60); HEMOLYSIS 5; POTASSIUM 4.2 mEQ/L (3.4-4.9); SODIUM 136 mEQ/L (135-145)
--- NOTE | 2017-05-15 12:19 | Pulmonology Progress Note ---
Assessment/Plan Problems: (1) Acute on chronic respiratory failure (2) Anemia (3) Right pulmonary infiltrate on CXR (4) Chronic respiratory acidosis (5) Feeding by G-tube (6) EF of 30 Assessment/Plan: still tachycardic and wbc still high, abx was just changed by ID, f/2 wbc, and cxr in am. IV vancomycin, , Tygacil and Colistin d# 2 / ( SP Merrem and Colistin INH d# / ) ( 03/13 SP vancomycin and Zosyn d# 5 ) Respiratory: monitor respiratory rate Cardiac: start pressors Renal: F/U I&O, keep IV fluid Infectious Disease: continue antibiotics Gastrointestinal: hold feedings Endocrine: check TSH, continue sliding scale insulin Hematologic: monitor H/H, transfuse if hgb<8.5 Neurologic: PRN Ativan, PRN Morphine, keep patient comfortable Prophylaxis: Heparin Notes Reviewed: airport operations specialist, renal Discussed with: consultants, case work aide Subjective ROS Limited/Unobtainable: Yes Interval Events: open eyes, comfortable Allergies: Coded Allergies: No Known Allergies (Unverified , 03/07/17) Objective Last 24 Hour Vital Signs Date Time Temp Pulse Resp B/P Pulse Ox O2 Delivery O2 Flow Rate FiO2 05/15/17 12:07 97.5 94 30 101/67 100 Mechanical Ventilator 30 05/15/17 10:53 94 29 30 05/15/17 09:37 101 99/68 05/15/17 08:47 97 16 30 05/15/17 08:00 95 05/15/17 08:00 97.0 95 16 99/68 100 Mechanical Ventilator 30.0 05/15/17 08:00 30 05/15/17 07:37 109 29 100 Mechanical Ventilator 30 05/15/17 07:27 93 28 30 05/15/17 07:27 109 28 98 Mechanical Ventilator 30 05/15/17 05:06 92 21 30 05/15/17 04:00 30 05/15/17 04:00 98.1 98 21 105/64 100 Mechanical Ventilator 30 05/15/17 04:00 94 05/15/17 03:29 97.9 05/15/17 03:29 97.9 05/15/17 03:20 96 22 30 05/15/17 00:56 106 29 30 05/15/17 00:00 30 05/15/17 00:00 99.1 103 25 99/59 100 Mechanical Ventilator 30 05/15/17 00:00 99.4 05/15/17 00:00 102 05/14/17 22:53 115 27 30 05/14/17 22:50 98.7 05/14/17 21:48 99.7 05/14/17 21:42 115 29 100 Mechanical Ventilator 30 05/14/17 21:27 111 28 98 Mechanical Ventilator 30 05/14/17 21:27 111 28 30 05/14/17 21:00 111 108/57 05/14/17 20:00 30 05/14/17 20:00 105 05/14/17 20:00 99.6 105 27 108/57 99 Mechanical Ventilator 30 05/14/17 19:07 106 30 30 05/14/17 16:58 108 25 30 05/14/17 16:00 98.1 105 22 96/60 98 Mechanical Ventilator 30 05/14/17 16:00 105 05/14/17 16:00 30 05/14/17 14:31 91 24 30 05/14/17 14:07 101 20 100 Mechanical Ventilator 30 05/14/17 13:55 98 20 Mechanical Ventilator 30 05/14/17 12:41 103 26 30 Intake and Output 05/14/17 05/15/17 19:00 07:00 Intake Total 2318.2 ml 1877.5 ml Output Total 2500 ml Balance -181.8 ml 1877.5 ml Intake Free Water 200 ml 300 ml IV Total 1258.2 ml 862.5 ml Tube Feeding 760 ml 715 ml Other 100 ml Output Urine Total 2500 ml # Bowel Movements 2 3 General Appearance: cachetic HEENT: normocephalic, anicteric Respiratory/Chest: chest wall non-tender, lungs clear Cardiovascular: normal peripheral pulses, normal rate, no JVD Abdomen: normal bowel sounds, no organomegaly Genitourinary: normal external genitalia Extremities: no cyanosis Skin: no rash, no lesions, no ulcers Laboratory Tests 05/15/17 11:20: White Blood Count [Pending], Red Blood Count [Pending], Hemoglobin [Pending], Hematocrit [Pending], Mean Corpuscular Volume [Pending], Mean Corpuscular Hemoglobin [Pending], Mean Corpuscular Hemoglobin Concent [Pending], Red Cell Distribution Width [Pending], Platelet Count [Pending], Mean Platelet Volume [ Pending], Neutrophils (%) (Auto) [Pending], Lymphocytes (%) (Auto) [Pending], Monocytes (%) (Auto) [Pending], Eosinophils (%) (Auto) [Pending], Basophils (%) (Auto) [Pending], Sodium Level [Pending], Potassium Level [Pending], Chloride Level [Pending], Carbon Dioxide Level [Pending], Blood Urea Nitrogen [Pending], Creatinine [Pending], Estimat Glomerular Filtration Rate [Pending], Glucose Level [Pending], Calcium Level [Pending] Current Medications Medications (Trade) Dose Ordered Sig/Tameka Route PRN Reason Start Time Stop Time Status Last Admin Dose Admin Acetaminophen (Tylenol) 650 mg Q4H PRN ORAL FEVER 05/10/17 18:15 06/09/17 18:14 05/15/17 02:30 Albuterol/ Ipratropium 3 ml 3 ml Q4H PRN HHN Shortness of Breath 05/10/17 18:15 05/15/17 18:14 Amiodarone HCl (Cordarone) 200 mg DAILY GT 05/11/17 09:00 06/10/17 08:59 05/15/17 09:37 Ascorbic Acid 500 mg 500 mg DAILY ORAL 05/14/17 09:00 06/13/17 08:59 05/15/17 09:36 Carvedilol (Coreg) 3.125 mg Q12HR GT 05/10/17 21:00 06/09/17 20:59 05/15/17 09:37 Colistimethate Sodium (Colistin *inhalation use only*) 150 mg Q12HR@10,22 INH 05/14/17 13:00 05/28/17 12:59 05/15/17 07:27 Dextrose (Dextrose 50%) STAT PRN IV Hypoglycemia 05/10/17 18:15 06/09/17 18:14 Furosemide (Lasix) 60 mg DAILY GT 05/11/17 09:00 06/10/17 08:59 05/15/17 09:37 Levetiracetam (Keppra) 500 mg Q12HR GT 05/10/17 21:00 06/09/17 20:59 05/15/17 09:00 Lorazepam (Ativan 2mg/ml 1ml) 2 mg Q2H PRN IV For Anxiety 05/10/17 18:15 05/17/17 18:14 Morphine Sulfate (Morphine Sulfate) 4 mg Q4H PRN IVP Severe Pain (Pain Scale 7-10) 05/10/17 18:15 05/17/17 18:14 05/14/17 00:17 Ondansetron HCl (Zofran) 4 mg Q6H PRN IVP Nausea & Vomiting 05/10/17 18:15 06/09/17 18:14 Polyethylene Glycol (Miralax) 17 gm DAILYPRN PRN ORAL Constipation 05/10/17 18:15 06/09/17 18:14 Sodium Chloride (0.45% NS 1000ml) 1,000 ml @ 75 mls/hr [id number] IV 05/10/17 19:00 06/09/17 18:59 05/15/17 02:30 Spironolactone (Aldactone) 25 mg DAILY ORAL 05/11/17 09:00 06/10/17 08:59 05/15/17 09:44 Tigecycline/ Dextrose (Tygacil/D5W) 110 ml @ 220 mls/hr EVERY 12 HOURS IVPB 05/14/17 23:00 05/28/17 22:59 05/15/17 09:44 ODETTE SMILEY May 15, 2017 12:19
[2017-05-15 13:39] LABS: BAND NEUTROPHILS % (MANUAL) 0 % (0-8); BASOPHILS % (MANUAL) 1 % (0-2); EOSINOPHILS % (MANUAL) 2 % (0-3); HYPOCHROMASIA 1+; LYMPHOCYTES % (MANUAL) 7 % (20-45); NEUTROPHILS % (MANUAL) 79 % (45-75); PLATELET ESTIMATE ADEQUATE; TOTAL CELLS COUNTED 100
[2017-05-15 13:40] LABS: ANISOCYTOSIS 1+; PLATELET MORPHOLOGY NORMAL
[2017-05-15] MEDS: Morphine Sulfate 4mg/ml Inj IVP PRN (14:40)
[2017-05-15 16:00] VITALS: BP 114/58
[2017-05-15 20:00] VITALS: BP 95/57
--- NOTE | 2017-05-15 21:40 | Infectious Diseases Prog Note ---
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 - SCx : MDR - ACB - CXR: Worsening atelectasis versus pneumonia right lung base - h/o Provid a+ XDR PSA and Providencia // Stage IV sacral decubitus, not grossly infected - surveillance WCx GNR x2, strep, CONS - h/o polymicrobial MDR colonization // HCV Ab+ - Abdominal ultrasound of liver : unremarkable // Probable sepsis // Leukocytosis: improving // Low grade fever x1 Severe anemia SP PRBCs Sinus tachycardia Chronic VDRF SP trach, PEG h/o cardiac arrest, anoxic encephalopathy Cardiomyopathy SP defibrillator placement Paroxysmal atrial fibrillation Cachexia / severe protein-calorie malnutrition [place] resident NKDA Full Code PLAN: Tygacil and Colistin d# 2 / ( 05/15 SP IV vancomycin, Zosyn d# 5 ) ( SP Merrem and Colistin INH d# / ) ( 03/13 SP vancomycin and Zosyn d# 5 ) f/u cultures, adjust ABX accordingly Monitor CBC, temperatures Monitor CMP Monitor CXR vent support, trach care, aspiration precautions wound care transfuse prn Subjective Constitutional: Denies: anorexia, chills, drenching sweats, fatigue, fever, no symptoms, other Allergies: Coded Allergies: No Known Allergies (Unverified , 03/07/17) Objective Vital Signs Last 24 Hour Vital Signs Date Time Temp Pulse Resp B/P Pulse Ox O2 Delivery O2 Flow Rate FiO2 05/15/17 21:17 118 20 40 05/15/17 20:32 116 95/57 05/15/17 20:00 97.3 110 19 95/57 99 Mechanical Ventilator 05/15/17 19:29 127 24 30 05/15/17 16:43 95 18 30 05/15/17 16:00 97.3 127 25 114/58 96 Mechanical Ventilator 05/15/17 16:00 110 05/15/17 16:00 30 05/15/17 15:06 92 18 30 05/15/17 13:25 95 18 30 05/15/17 12:07 97.5 94 30 101/67 100 Mechanical Ventilator 30 05/15/17 12:00 30 05/15/17 12:00 92 05/15/17 10:53 94 29 30 05/15/17 09:37 101 99/68 05/15/17 08:47 97 16 30 05/15/17 08:00 95 05/15/17 08:00 97.0 95 16 99/68 100 Mechanical Ventilator 30.0 05/15/17 08:00 30 05/15/17 07:37 109 29 100 Mechanical Ventilator 30 05/15/17 07:27 93 28 30 05/15/17 07:27 109 28 98 Mechanical Ventilator 30 05/15/17 05:06 92 21 30 05/15/17 04:00 30 05/15/17 04:00 98.1 98 21 105/64 100 Mechanical Ventilator 30 05/15/17 04:00 94 05/15/17 03:29 97.9 05/15/17 03:29 97.9 05/15/17 03:20 96 22 30 05/15/17 00:56 106 29 30 05/15/17 00:00 30 05/15/17 00:00 99.1 103 25 99/59 100 Mechanical Ventilator 30 05/15/17 00:00 99.4 05/15/17 00:00 102 05/14/17 22:53 115 27 30 05/14/17 22:50 98.7 05/14/17 21:48 99.7 05/14/17 21:42 115 29 100 Mechanical Ventilator 30 Height (Feet): 5 Height (Inches): 7.00 Weight (Pounds): 121 HEENT: anicteric Respiratory/Chest: normal breath sounds Cardiovascular: regular rhythm Abdomen: non distended Laboratory Tests Test 05/15/17 11:20 White Blood Count 18.4 K/UL (4.8-10.8) H Red Blood Count 3.98 M/UL (4.70-6.10) L Hemoglobin 10.8 G/DL (14.2-18.0) L Hematocrit 34.0 % (42.0-52.0) L Mean Corpuscular Volume 85 FL (80-99) Mean Corpuscular Hemoglobin 27.0 PG (27.0-31.0) Mean Corpuscular Hemoglobin Concent 31.6 G/DL (32.0-36.0) L Red Cell Distribution Width 17.0 % (11.6-14.8) H Platelet Count 491 K/UL (150-450) H Mean Platelet Volume 5.5 FL (6.5-10.1) L Neutrophils (%) (Auto) % (45.0-75.0) Lymphocytes (%) (Auto) % (20.0-45.0) Monocytes (%) (Auto) % (1.0-10.0) Eosinophils (%) (Auto) % (0.0-3.0) Basophils (%) (Auto) % (0.0-2.0) Differential Total Cells Counted 100 Neutrophils % (Manual) 79 % (45-75) H Lymphocytes % (Manual) 7 % (20-45) L Monocytes % (Manual) 11 % (1-10) H Eosinophils % (Manual) 2 % (0-3) Basophils % (Manual) 1 % (0-2) Band Neutrophils 0 % (0-8) Platelet Estimate Adequate Platelet Morphology Normal Hypochromasia 1+ Anisocytosis 1+ Sodium Level 136 mEQ/L (135-145) Potassium Level 4.2 mEQ/L (3.4-4.9) Chloride Level 97 mEQ/L (98-107) L Carbon Dioxide Level 26 mEQ/L (20-30) Anion Gap 13 (5-15) Blood Urea Nitrogen 22 mg/dL (7-23) Creatinine 0.5 mg/dL (0.7-1.2) L Estimat Glomerular Filtration Rate > 60 mL/min (>60) Glucose Level 137 mg/dL (74-106) H Calcium Level 8.7 mg/dL (8.6-10.2) Current Medications Medications (Trade) Dose Ordered Sig/Tameka Route PRN Reason Start Time Stop Time Status Last Admin Dose Admin Acetaminophen (Tylenol) 650 mg Q4H PRN ORAL FEVER 05/10/17 18:15 06/09/17 18:14 05/15/17 02:30 Amiodarone HCl (Cordarone) 200 mg DAILY GT 05/11/17 09:00 06/10/17 08:59 05/15/17 09:37 Ascorbic Acid 500 mg 500 mg DAILY ORAL 05/14/17 09:00 06/13/17 08:59 05/15/17 09:36 Carvedilol (Coreg) 3.125 mg Q12HR GT 05/10/17 21:00 06/09/17 20:59 05/15/17 09:37 Colistimethate Sodium (Colistin *inhalation use only*) 150 mg Q12HR@10,22 INH 05/14/17 13:00 05/28/17 12:59 05/15/17 07:27 Dextrose (Dextrose 50%) STAT PRN IV Hypoglycemia 05/10/17 18:15 06/09/17 18:14 Furosemide (Lasix) 60 mg DAILY GT 05/11/17 09:00 06/10/17 08:59 05/15/17 09:37 Levetiracetam (Keppra) 500 mg Q12HR GT 05/10/17 21:00 06/09/17 20:59 05/15/17 20:33 Lorazepam (Ativan 2mg/ml 1ml) 2 mg Q2H PRN IV For Anxiety 05/10/17 18:15 05/17/17 18:14 Morphine Sulfate (Morphine Sulfate) 4 mg Q4H PRN IVP Severe Pain (Pain Scale 7-10) 05/10/17 18:15 05/17/17 18:14 05/15/17 14:40 Ondansetron HCl (Zofran) 4 mg Q6H PRN IVP Nausea & Vomiting 05/10/17 18:15 06/09/17 18:14 Polyethylene Glycol (Miralax) 17 gm DAILYPRN PRN ORAL Constipation 05/10/17 18:15 06/09/17 18:14 Spironolactone (Aldactone) 25 mg DAILY ORAL 05/11/17 09:00 06/10/17 08:59 05/15/17 09:44 Tigecycline/ Dextrose (Tygacil/D5W) 110 ml @ 220 mls/hr EVERY 12 HOURS IVPB 05/14/17 23:00 05/28/17 22:59 05/15/17 20:33 MARCUS PA M.D. May 15, 2017 21:40
[2017-05-16] VITALS: BP 85/60
[2017-05-16 04:28] VITALS: BP 103/73
[2017-05-16 05:21] LABS: MEAN CORPUSCULAR HEMOGLOBIN 27.1 PG (27.0-31.0); MEAN CORPUSCULAR HGB CONC 31.5 G/DL (32.0-36.0); MEAN CORPUSCULAR VOLUME 86 FL (80-99); MEAN PLATELET VOLUME 5.5 FL (6.5-10.1); PLATELET COUNT 521 K/UL (150-450); RED BLOOD COUNT 3.98 M/UL (4.70-6.10); RED CELL DISTRIBUTION WIDTH 17.3 % (11.6-14.8)
[2017-05-16 05:57] LABS: ALANINE AMINOTRANSFERASE 11 U/L (3-41); ALBUMIN/GLOBULIN RATIO 0.4 (1.0-2.7); ANION GAP 13 (5-15); ASPARTATE AMINO TRANSFERASE 16 U/L (5-40); CALCIUM 8.9 mg/dL (8.6-10.2); CARBON DIOXIDE 28 mEQ/L (20-30); CHLORIDE 94 mEQ/L (98-107); CREATININE 0.4 mg/dL (0.7-1.2); GLOMERULAR FILTRATION RATE > 60 mL/min (>60); HEMOLYSIS 3; POTASSIUM 4.9 mEQ/L (3.4-4.9); SODIUM 135 mEQ/L (135-145); TOTAL PROTEIN 7.7 g/dL (6.6-8.7)
[2017-05-16 08:00] VITALS: BP 100/68
[2017-05-16] MEDS: Colistin for inhalation INH SCH ×2 (08:17→21:00)
[2017-05-16 08:35] LABS: ANISOCYTOSIS 1+; BAND NEUTROPHILS % (MANUAL) 0 % (0-8); BASOPHILS % (MANUAL) 0 % (0-2); EOSINOPHILS % (MANUAL) 1 % (0-3); HYPOCHROMASIA 1+; LYMPHOCYTES % (MANUAL) 7 % (20-45); NEUTROPHILS % (MANUAL) 83 % (45-75); PLATELET ESTIMATE INCREASED; PLATELET MORPHOLOGY NORMAL; TOTAL CELLS COUNTED 100
[2017-05-16] MEDS: Amiodarone 200mg tab GT SCH (09:17)
[2017-05-16] MEDS: levETIRAcetam 500mg/5ml Liquid GT SCH ×2 (09:17→21:15)
[2017-05-16] MEDS: Ascorbic Acid 500mg tab ORAL SCH (09:17)
[2017-05-16] MEDS: Spironolactone 25mg tab ORAL SCH (09:17)
[2017-05-16] MEDS: Tigecycline 50 MG in D5W 110 ML IVPB SCH ×2 (09:18→21:16)
--- NOTE | 2017-05-16 11:40 | Diagnostic Imaging Report ---
Indication: DYSPNEA Technique: One view of the chest Comparison: 05/10/2017 Findings: Left chest AICD is demonstrated. The lungs and pleural spaces are clear. Heart size is normal. Tracheostomy remains. There is evidence of prior upper abdominal surgery. Interim resolution of previously demonstrated right basilar infiltrate Impression: No acute process currently. Interim resolution of previously demonstrated right basilar infiltrate Other findings as described
--- NOTE | 2017-05-16 11:57 | Infectious Diseases Prog Note ---
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 - SCx : MDR - ACB - CXR: Worsening atelectasis versus pneumonia right lung base - h/o Provid a+ XDR PSA and Providencia // Stage IV sacral decubitus, not grossly infected - surveillance WCx GNR x2, strep, CONS - h/o polymicrobial MDR colonization // HCV Ab+ - Abdominal ultrasound of liver : unremarkable // Probable sepsis // Leukocytosis: persistent // Low grade fever x1, SP Severe anemia SP PRBCs Sinus tachycardia Chronic VDRF SP trach, PEG h/o cardiac arrest, anoxic encephalopathy Cardiomyopathy SP defibrillator placement Paroxysmal atrial fibrillation Cachexia / severe protein-calorie malnutrition [place] resident NKDA Full Code PLAN: Tygacil and Colistin d# 3 / ( 05/15 SP IV vancomycin, Zosyn d# 5 ) ( SP Merrem and Colistin INH d# / ) ( 03/13 SP vancomycin and Zosyn d# 5 ) f/u cultures, adjust ABX accordingly Monitor CBC, temperatures Monitor CMP Monitor CXR vent support, trach care, aspiration precautions wound care transfuse prn Subjective Constitutional: Denies: anorexia, chills, drenching sweats, fatigue, fever, no symptoms, other Allergies: Coded Allergies: No Known Allergies (Unverified , 03/07/17) Objective Vital Signs Last 24 Hour Vital Signs Date Time Temp Pulse Resp B/P Pulse Ox O2 Delivery O2 Flow Rate FiO2 05/16/17 11:00 110 27 40 05/16/17 09:18 99 100/68 05/16/17 09:10 105 26 40 05/16/17 08:00 30 05/16/17 08:00 98.9 99 29 100/68 100 Mechanical Ventilator 40 05/16/17 07:15 105 26 100 Mechanical Ventilator 40 05/16/17 07:10 105 26 100 Mechanical Ventilator 40 05/16/17 07:10 105 27 40 05/16/17 05:20 108 25 40 05/16/17 04:28 97.9 109 19 103/73 99 Mechanical Ventilator 30 05/16/17 04:00 30 05/16/17 04:00 108 05/16/17 02:49 108 25 40 05/16/17 00:52 114 20 40 05/16/17 00:00 97.6 108 18 85/60 100 Mechanical Ventilator 30 05/16/17 00:00 107 05/16/17 00:00 30 05/15/17 23:26 107 16 100 Mechanical Ventilator 40 05/15/17 23:08 111 26 99 Mechanical Ventilator 40 05/15/17 23:08 111 24 40 05/15/17 21:17 118 20 40 05/15/17 20:32 116 95/57 05/15/17 20:00 30 05/15/17 20:00 125 05/15/17 20:00 97.3 110 19 95/57 99 Mechanical Ventilator 30 05/15/17 19:29 127 24 30 05/15/17 16:43 95 18 30 05/15/17 16:00 97.3 127 25 114/58 96 Mechanical Ventilator 30 05/15/17 16:00 110 05/15/17 16:00 30 05/15/17 15:06 92 18 30 05/15/17 13:25 95 18 30 05/15/17 12:07 97.5 94 30 101/67 100 Mechanical Ventilator 30 05/15/17 12:00 30 05/15/17 12:00 92 Height (Feet): 5 Height (Inches): 7.00 Weight (Pounds): 121 HEENT: anicteric Respiratory/Chest: normal breath sounds Cardiovascular: regularly irregular Abdomen: non distended Laboratory Tests Test 05/16/17 03:25 White Blood Count 18.0 K/UL (4.8-10.8) H Red Blood Count 3.98 M/UL (4.70-6.10) L Hemoglobin 10.8 G/DL (14.2-18.0) L Hematocrit 34.3 % (42.0-52.0) L Mean Corpuscular Volume 86 FL (80-99) Mean Corpuscular Hemoglobin 27.1 PG (27.0-31.0) Mean Corpuscular Hemoglobin Concent 31.5 G/DL (32.0-36.0) L Red Cell Distribution Width 17.3 % (11.6-14.8) H Platelet Count 521 K/UL (150-450) H Mean Platelet Volume 5.5 FL (6.5-10.1) L Neutrophils (%) (Auto) % (45.0-75.0) Lymphocytes (%) (Auto) % (20.0-45.0) Monocytes (%) (Auto) % (1.0-10.0) Eosinophils (%) (Auto) % (0.0-3.0) Basophils (%) (Auto) % (0.0-2.0) Differential Total Cells Counted 100 Neutrophils % (Manual) 83 % (45-75) H Lymphocytes % (Manual) 7 % (20-45) L Monocytes % (Manual) 9 % (1-10) Eosinophils % (Manual) 1 % (0-3) Basophils % (Manual) 0 % (0-2) Band Neutrophils 0 % (0-8) Platelet Estimate Increased H Platelet Morphology Normal Hypochromasia 1+ Anisocytosis 1+ Sodium Level 135 mEQ/L (135-145) Potassium Level 4.9 mEQ/L (3.4-4.9) Chloride Level 94 mEQ/L (98-107) L Carbon Dioxide Level 28 mEQ/L (20-30) Anion Gap 13 (5-15) Blood Urea Nitrogen 27 mg/dL (7-23) H Creatinine 0.4 mg/dL (0.7-1.2) L Estimat Glomerular Filtration Rate > 60 mL/min (>60) Glucose Level 130 mg/dL (74-106) H Calcium Level 8.9 mg/dL (8.6-10.2) Total Bilirubin 0.3 mg/dL (0.0-1.2) Aspartate Amino Transf (AST/SGOT) 16 U/L (5-40) Alanine Aminotransferase (ALT/SGPT) 11 U/L (3-41) Alkaline Phosphatase 166 U/L (40-129) H Pro-B-Type Natriuretic Peptide 5096 pg/mL (0-125) H Total Protein 7.7 g/dL (6.6-8.7) Albumin 2.2 g/dL (3.5-5.2) L Globulin 5.5 g/dL Albumin/Globulin Ratio 0.4 (1.0-2.7) L Current Medications Medications (Trade) Dose Ordered Sig/Tameka Route PRN Reason Start Time Stop Time Status Last Admin Dose Admin Acetaminophen (Tylenol) 650 mg Q4H PRN ORAL FEVER 05/10/17 18:15 06/09/17 18:14 05/15/17 02:30 Amiodarone HCl (Cordarone) 200 mg DAILY GT 6/25/17 09:00 06/10/17 08:59 05/16/17 09:17 Ascorbic Acid 500 mg 500 mg DAILY ORAL 05/14/17 09:00 06/13/17 08:59 05/16/17 09:17 Carvedilol (Coreg) 3.125 mg Q12HR GT 05/10/17 21:00 06/09/17 20:59 05/16/17 09:18 Colistimethate Sodium (Colistin *inhalation use only*) 150 mg Q12HR@10,22 INH 05/14/17 13:00 05/28/17 12:59 05/16/17 08:17 Dextrose (Dextrose 50%) STAT PRN IV Hypoglycemia 05/10/17 18:15 06/09/17 18:14 Furosemide (Lasix) 60 mg DAILY GT 05/11/17 09:00 06/10/17 08:59 05/16/17 09:18 Levetiracetam (Keppra) 500 mg Q12HR GT 05/10/17 21:00 06/09/17 20:59 05/16/17 09:17 Lorazepam (Ativan 2mg/ml 1ml) 2 mg Q2H PRN IV For Anxiety 05/10/17 18:15 05/17/17 18:14 Morphine Sulfate (Morphine Sulfate) 4 mg Q4H PRN IVP Severe Pain (Pain Scale 7-10) 05/10/17 18:15 05/17/17 18:14 05/15/17 14:40 Ondansetron HCl (Zofran) 4 mg Q6H PRN IVP Nausea & Vomiting 05/10/17 18:15 06/09/17 18:14 Polyethylene Glycol (Miralax) 17 gm DAILYPRN PRN ORAL Constipation 05/10/17 18:15 06/09/17 18:14 Spironolactone (Aldactone) 25 mg DAILY ORAL 05/11/17 09:00 06/10/17 08:59 05/16/17 09:17 Tigecycline/ Dextrose (Tygacil/D5W) 110 ml @ 220 mls/hr EVERY 12 HOURS IVPB 05/14/17 23:00 05/28/17 22:59 05/16/17 09:18 MARCUS PA M.D. May 16, 2017 11:57
[2017-05-16 12:00] VITALS: BP 93/67
--- NOTE | 2017-05-16 13:28 | GI Progress Note ---
Assessment/Plan Problems: (1) Anemia ICD Codes: D64.9 - Anemia, unspecified SNOMED: 559400758 Qualifiers: Qualified Codes: D64.9 - Anemia, unspecified (2) EF of 30 (3) Feeding by G-tube ICD Codes: Z93.1 - Gastrostomy status SNOMED: 737682848, 344226702 (4) Transaminitis ICD Codes: R74.0 - Nonspecific elevation of levels of transaminase and lactic acid dehydrogenase [LDH] SNOMED: 646075125 (5) Leukocytosis ICD Codes: D72.829 - Elevated white blood cell count, unspecified SNOMED: 504261495, 359600799 Status: stable, unchanged Status Narrative Discussed with Dr. Alex. Assessment/Plan occult blood stool >> negative x 2 stable H&H, transfuse prn GT replaced. GTFs per dietary, monitor residuals PPI for GI prophylaxis abx fu labs Subjective Subjective limited Objective Last 24 Hour Vital Signs Date Time Temp Pulse Resp B/P Pulse Ox O2 Delivery O2 Flow Rate FiO2 05/16/17 12:00 99.6 111 29 93/67 100 Mechanical Ventilator 40 05/16/17 11:00 110 27 40 05/16/17 09:18 99 100/68 05/16/17 09:10 105 26 40 05/16/17 08:00 30 05/16/17 08:00 98.9 99 29 100/68 100 Mechanical Ventilator 40 05/16/17 07:15 105 26 100 Mechanical Ventilator 40 05/16/17 07:10 105 26 100 Mechanical Ventilator 40 05/16/17 07:10 105 27 40 05/16/17 05:20 108 25 40 05/16/17 04:28 97.9 109 19 103/73 99 Mechanical Ventilator 30 05/16/17 04:00 30 05/16/17 04:00 108 05/16/17 02:49 108 25 40 05/16/17 00:52 114 20 40 05/16/17 00:00 97.6 108 18 85/60 100 Mechanical Ventilator 30 05/16/17 00:00 107 05/16/17 00:00 30 05/15/17 23:26 107 16 100 Mechanical Ventilator 40 05/15/17 23:08 111 26 99 Mechanical Ventilator 40 05/15/17 23:08 111 24 40 05/15/17 21:17 118 20 40 6/29/17 20:32 116 95/57 05/15/17 20:00 30 05/15/17 20:00 125 05/15/17 20:00 97.3 110 19 95/57 99 Mechanical Ventilator 30 05/15/17 19:29 127 24 30 05/15/17 16:43 95 18 30 05/15/17 16:00 97.3 127 25 114/58 96 Mechanical Ventilator 30 05/15/17 16:00 110 05/15/17 16:00 30 05/15/17 15:06 92 18 30 Intake and Output 05/15/17 05/16/17 19:00 07:00 Intake Total 65 ml 1190 ml Output Total 2150 ml Balance -2085 ml 1190 ml Intake Free Water 300 ml IV Total 110 ml Tube Feeding 65 ml 780 ml Output Urine Total 2150 ml # Bowel Movements 4 3 Laboratory Tests Test 05/16/17 03:25 White Blood Count 18.0 K/UL (4.8-10.8) H Red Blood Count 3.98 M/UL (4.70-6.10) L Hemoglobin 10.8 G/DL (14.2-18.0) L Hematocrit 34.3 % (42.0-52.0) L Mean Corpuscular Volume 86 FL (80-99) Mean Corpuscular Hemoglobin 27.1 PG (27.0-31.0) Mean Corpuscular Hemoglobin Concent 31.5 G/DL (32.0-36.0) L Red Cell Distribution Width 17.3 % (11.6-14.8) H Platelet Count 521 K/UL (150-450) H Mean Platelet Volume 5.5 FL (6.5-10.1) L Neutrophils (%) (Auto) % (45.0-75.0) Lymphocytes (%) (Auto) % (20.0-45.0) Monocytes (%) (Auto) % (1.0-10.0) Eosinophils (%) (Auto) % (0.0-3.0) Basophils (%) (Auto) % (0.0-2.0) Differential Total Cells Counted 100 Neutrophils % (Manual) 83 % (45-75) H Lymphocytes % (Manual) 7 % (20-45) L Monocytes % (Manual) 9 % (1-10) Eosinophils % (Manual) 1 % (0-3) Basophils % (Manual) 0 % (0-2) Band Neutrophils 0 % (0-8) Platelet Estimate Increased H Platelet Morphology Normal Hypochromasia 1+ Anisocytosis 1+ Sodium Level 135 mEQ/L (135-145) Potassium Level 4.9 mEQ/L (3.4-4.9) Chloride Level 94 mEQ/L (98-107) L Carbon Dioxide Level 28 mEQ/L (20-30) Anion Gap 13 (5-15) Blood Urea Nitrogen 27 mg/dL (7-23) H Creatinine 0.4 mg/dL (0.7-1.2) L Estimat Glomerular Filtration Rate > 60 mL/min (>60) Glucose Level 130 mg/dL (74-106) H Calcium Level 8.9 mg/dL (8.6-10.2) Total Bilirubin 0.3 mg/dL (0.0-1.2) Aspartate Amino Transf (AST/SGOT) 16 U/L (5-40) Alanine Aminotransferase (ALT/SGPT) 11 U/L (3-41) Alkaline Phosphatase 166 U/L (40-129) H Pro-B-Type Natriuretic Peptide 5096 pg/mL (0-125) H Total Protein 7.7 g/dL (6.6-8.7) Albumin 2.2 g/dL (3.5-5.2) L Globulin 5.5 g/dL Albumin/Globulin Ratio 0.4 (1.0-2.7) L Height (Feet): 5 Height (Inches): 7.00 Weight (Pounds): 121 General Appearance: no apparent distress, alert Cardiovascular: normal rate Respiratory/Chest: normal breath sounds, no respiratory distress Abdominal Exam: normal bowel sounds, non tender, soft, GT site - c/d/i Lani Last N.P. May 16, 2017 13:28
[2017-05-16] MEDS ORDERED: DuoNeb 0.5-3(2.5)mg/3ml neb HHN PRN (15:00)
--- NOTE | 2017-05-16 15:01 | Pulmonology Progress Note ---
Assessment/Plan Assessment/Plan ASSESSMENT likely sepsis probably recurrent HCAP/VAP tachycardia acute on chronic respiratory failure VDRF/trach dysphagia, G tube anemia s/p blood transfusion severe cardiomyopathy AICD HTN hx of hep C st 4 sacral decub POA anoxic encephalopathy severe protein calorie malnutrition hypo Mg PLAN OF CARE LIGIA status vent trach care, pulmonary toilet ABG in am and titrate settings as needed abx, ID follows wound cx colonized as per ID sputum cx + Acinetobacter MDR, KPC Venous Duplex BLE negative last ECHO with EF 30-35% continue BB, Amiodarone, Lasix, Aldactone for management of systolic heart failure monitor HH , transfuse prn stool OB negative x 2 GI follows G tube replaced PPI strict aspiration precautions GT feeding, monitor tolerance wound care as per wound nurse recommendations ST likely 2 to infection, Mg replaced , stable afterwards bowel regimen pain management case discussed and evaluated by supervising physician Subjective Allergies: Coded Allergies: No Known Allergies (Unverified , 03/07/17) Subjective leukocytosis persist, low grade fever Objective Last 24 Hour Vital Signs Date Time Temp Pulse Resp B/P Pulse Ox O2 Delivery O2 Flow Rate FiO2 05/16/17 12:00 40 05/16/17 12:00 99.6 111 29 93/67 100 Mechanical Ventilator 40 05/16/17 12:00 111 05/16/17 11:00 110 27 40 05/16/17 09:18 99 100/68 05/16/17 09:10 105 26 40 05/16/17 08:00 106 05/16/17 08:00 40 05/16/17 08:00 98.9 99 29 100/68 100 Mechanical Ventilator 40 05/16/17 07:15 105 26 100 Mechanical Ventilator 40 05/16/17 07:10 105 26 100 Mechanical Ventilator 40 05/16/17 07:10 105 27 40 05/16/17 05:20 108 25 40 05/16/17 04:28 97.9 109 19 103/73 99 Mechanical Ventilator 30 05/16/17 04:00 30 05/16/17 04:00 108 05/16/17 02:49 108 25 40 05/16/17 00:52 114 20 40 05/16/17 00:00 97.6 108 18 85/60 100 Mechanical Ventilator 30 05/16/17 00:00 107 05/16/17 00:00 30 05/15/17 23:26 107 16 100 Mechanical Ventilator 40 05/15/17 23:08 111 26 99 Mechanical Ventilator 40 05/15/17 23:08 111 24 40 05/15/17 21:17 118 20 40 05/15/17 20:32 116 95/57 05/15/17 20:00 30 05/15/17 20:00 125 05/15/17 20:00 97.3 110 19 95/57 99 Mechanical Ventilator 30 05/15/17 19:29 127 24 30 05/15/17 16:43 95 18 30 05/15/17 16:00 97.3 127 25 114/58 96 Mechanical Ventilator 30 05/15/17 16:00 110 05/15/17 16:00 30 05/15/17 15:06 92 18 30 Intake and Output 05/15/17 05/16/17 19:00 07:00 Intake Total 65 ml 1190 ml Output Total 2150 ml Balance -2085 ml 1190 ml Intake Free Water 300 ml IV Total 110 ml Tube Feeding 65 ml 780 ml Output Urine Total 2150 ml # Bowel Movements 4 3 General Appearance: no acute distress, cachetic, other - bedridden vent dependent AA male vent AC 450-16-30% HEENT: status post trach - Shiley#8, secretiosn small, white, thick Respiratory/Chest: no respiratory distress, rhonchi - few isolated Cardiovascular: regular rhythm, tachycardia Abdomen: normal bowel sounds, soft, non tender, other - G tube 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: abnormal gait - bedridden , alert - awake, porrly but responsive , other Musculoskeletal: atrophy - BLE Laboratory Tests 05/16/17 03:25: White Blood Count 18.0H, Red Blood Count 3.98L, Hemoglobin 10.8L, Hematocrit 34.3L, Mean Corpuscular Volume 86, Mean Corpuscular Hemoglobin 27.1, Mean Corpuscular Hemoglobin Concent 31.5L, Red Cell Distribution Width 17.3H, Platelet Count 521H, Mean Platelet Volume 5.5L, Neutrophils (%) (Auto) , Lymphocytes (%) (Auto) , Monocytes (%) (Auto) , Eosinophils (%) (Auto) , Basophils (%) (Auto) , Differential Total Cells Counted 100, Neutrophils % ( Manual) 83H, Lymphocytes % (Manual) 7L, Monocytes % (Manual) 9, Eosinophils % ( Manual) 1, Basophils % (Manual) 0, Band Neutrophils 0, Platelet Estimate IncreasedH, Platelet Morphology Normal, Hypochromasia 1+, Anisocytosis 1+, Sodium Level 135, Potassium Level 4.9, Chloride Level 94L, Carbon Dioxide Level 28, Anion Gap 13, Blood Urea Nitrogen 27H, Creatinine 0.4L, Estimat Glomerular Filtration Rate > 60, Glucose Level 130H, Calcium Level 8.9, Total Bilirubin 0.3 , Aspartate Amino Transf (AST/SGOT) 16, Alanine Aminotransferase (ALT/SGPT) 11, Alkaline Phosphatase 166H, Pro-B-Type Natriuretic Peptide 5096H, Total Protein 7.7, Albumin 2.2L, Globulin 5.5, Albumin/Globulin Ratio 0.4L Current Medications Medications (Trade) Dose Ordered Sig/Tameka Route PRN Reason Start Time Stop Time Status Last Admin Dose Admin Acetaminophen (Tylenol) 650 mg Q4H PRN ORAL FEVER 05/10/17 18:15 06/09/17 18:14 05/15/17 02:30 Amiodarone HCl (Cordarone) 200 mg DAILY GT 05/11/17 09:00 06/10/17 08:59 05/16/17 09:17 Ascorbic Acid 500 mg 500 mg DAILY ORAL 05/14/17 09:00 06/13/17 08:59 05/16/17 09:17 Carvedilol (Coreg) 3.125 mg Q12HR GT 05/10/17 21:00 06/09/17 20:59 05/16/17 09:18 Colistimethate Sodium (Colistin *inhalation use only*) 150 mg Q12HR@10,22 INH 05/14/17 13:00 05/28/17 12:59 05/16/17 08:17 Dextrose (Dextrose 50%) STAT PRN IV Hypoglycemia 05/10/17 18:15 06/09/17 18:14 Furosemide (Lasix) 60 mg DAILY GT 05/11/17 09:00 06/10/17 08:59 05/16/17 09:18 Levetiracetam (Keppra) 500 mg Q12HR GT 05/10/17 21:00 06/09/17 20:59 05/16/17 09:17 Lorazepam (Ativan 2mg/ml 1ml) 2 mg Q2H PRN IV For Anxiety 05/10/17 18:15 05/17/17 18:14 Morphine Sulfate (Morphine Sulfate) 4 mg Q4H PRN IVP Severe Pain (Pain Scale 7-10) 05/10/17 18:15 05/17/17 18:14 05/15/17 14:40 Ondansetron HCl (Zofran) 4 mg Q6H PRN IVP Nausea & Vomiting 05/10/17 18:15 06/09/17 18:14 Polyethylene Glycol (Miralax) 17 gm DAILYPRN PRN ORAL Constipation 05/10/17 18:15 06/09/17 18:14 Spironolactone (Aldactone) 25 mg DAILY ORAL 05/11/17 09:00 06/10/17 08:59 05/16/17 09:17 Tigecycline/ Dextrose (Tygacil/D5W) 110 ml @ 220 mls/hr EVERY 12 HOURS IVPB 05/14/17 23:00 05/28/17 22:59 05/16/17 09:18 Chiara Perales NP (Vanchtein) May 16, 2017 15:01
[2017-05-16 16:00] VITALS: BP 110/58
[2017-05-16] MEDS ORDERED: LORazepam Inj 2mg/ml 1ml IV PRN (16:15)
[2017-05-16 20:00] VITALS: BP 84/58
[2017-05-17] VITALS (7 sets, daily range): BP systolic 85–134; BP diastolic 45–84
[2017-05-17 04:51] LABS: BASOPHILS % (AUTO) 0.8 % (0.0-2.0); EOSINOPHILS % (AUTO) 0.4 % (0.0-3.0); LYMPHOCYTES % (AUTO) 11.5 % (20.0-45.0); MEAN CORPUSCULAR HEMOGLOBIN 27.6 PG (27.0-31.0); MEAN CORPUSCULAR HGB CONC 32.1 G/DL (32.0-36.0); MEAN CORPUSCULAR VOLUME 86 FL (80-99); MEAN PLATELET VOLUME 5.7 FL (6.5-10.1); MONOCYTES % (AUTO) 9.7 % (1.0-10.0); NEUTROPHILS % (AUTO) 77.6 % (45.0-75.0); PLATELET COUNT 554 K/UL (150-450); RED BLOOD COUNT 3.81 M/UL (4.70-6.10); WHITE BLOOD COUNT 17.7 K/UL (4.8-10.8)
[2017-05-17 05:18] LABS: ANION GAP 8 (5-15); CALCIUM 8.8 mg/dL (8.6-10.2); CARBON DIOXIDE 31 mEQ/L (20-30); CHLORIDE 99 mEQ/L (98-107); CREATININE 0.5 mg/dL (0.7-1.2); GLOMERULAR FILTRATION RATE > 60 mL/min (>60); HEMOLYSIS 3; MAGNESIUM 1.7 mg/dL (1.7-2.5); PHOSPHORUS 3.3 mg/dL (2.5-4.8); POTASSIUM 4.8 mEQ/L (3.4-4.9); SODIUM 138 mEQ/L (135-145)
[2017-05-17 08:35] LABS: ABG PCO2 42.8 mmHg (35.0-45.0)
[2017-05-17 08:36] LABS: ABG BASE EXCESS 8.3
[2017-05-17] MEDS: levETIRAcetam 500mg/5ml Liquid GT SCH ×2 (08:44→21:17)
[2017-05-17] MEDS: Amiodarone 200mg tab GT SCH (08:44)
[2017-05-17] MEDS: Spironolactone 25mg tab ORAL SCH (08:45)
[2017-05-17] MEDS: Ascorbic Acid 500mg tab ORAL SCH (08:45)
[2017-05-17] MEDS: Tigecycline 50 MG in D5W 110 ML IVPB SCH ×2 (08:45→21:18)
[2017-05-17] MEDS: Colistin for inhalation INH SCH ×2 (10:22→21:27)
--- NOTE | 2017-05-17 13:15 | Pulmonology Progress Note ---
Assessment/Plan Assessment/Plan ASSESSMENT sepsis probably recurrent HCAP/VAP tachycardia acute on chronic respiratory failure VDRF/trach dysphagia, G tube anemia s/p blood transfusion severe cardiomyopathy AICD HTN hx of hep C st 4 sacral decub POA anoxic encephalopathy severe protein calorie malnutrition hypo Mg PLAN OF CARE LIGIA status vent trach care, pulmonary toilet ABG stable on current settings, keep as is and titrate settings as needed abx, ID follows wound cx colonized as per ID sputum cx + Acinetobacter MDR, KPC Venous Duplex BLE negative last ECHO with EF 30-35% continue BB, Amiodarone, Lasix, Aldactone for management of systolic heart failure monitor HH , transfuse prn stool OB negative x 2 GI follows G tube replaced PPI strict aspiration precautions GT feeding, monitor tolerance wound care as per wound nurse recommendations ST likely 2 to infection, Mg replaced , stable afterwards bowel regimen pain management case discussed and evaluated by supervising physician Subjective Allergies: Coded Allergies: No Known Allergies (Unverified , 03/07/17) Subjective still significant leukocytosis persist, afebrile ABG stable on current settings Objective Last 24 Hour Vital Signs Date Time Temp Pulse Resp B/P Pulse Ox O2 Delivery O2 Flow Rate FiO2 05/17/17 12:00 97.7 98 19 134/74 100 Mechanical Ventilator 30 05/17/17 12:00 103 05/17/17 12:00 35 05/17/17 11:00 99 26 30 05/17/17 09:14 99 17 100 Mechanical Ventilator 30 05/17/17 09:03 97 24 99 Mechanical Ventilator 30 05/17/17 09:03 97 24 30 05/17/17 08:54 97.7 114 25 127/73 100 Mechanical Ventilator 40 05/17/17 08:45 113 127/73 05/17/17 08:00 115 05/17/17 08:00 40 05/17/17 07:30 114 26 30 05/17/17 05:00 115 26 40 05/17/17 04:00 115 05/17/17 04:00 40 05/17/17 04:00 99.8 114 25 112/59 99 Mechanical Ventilator 40 05/17/17 02:55 117 28 40 05/17/17 00:55 103 21 40 05/17/17 00:44 98.3 111 24 121/84 96 Mechanical Ventilator 40 05/17/17 00:00 111 05/17/17 00:00 40 05/16/17 22:45 110 23 40 05/16/17 21:10 108 17 100 Mechanical Ventilator 40 05/16/17 21:00 106 23 99 Mechanical Ventilator 40 05/16/17 21:00 106 23 40 05/16/17 21:00 105 84/58 05/16/17 20:00 104 05/16/17 20:00 40 05/16/17 20:00 98.2 108 24 84/58 99 Mechanical Ventilator 40 05/16/17 18:55 104 21 40 05/16/17 18:25 98.9 05/16/17 17:05 111 26 40 05/16/17 16:00 40 05/16/17 16:00 112 05/16/17 16:00 100.7 111 32 110/58 99 Mechanical Ventilator 05/16/17 15:30 112 24 40 Intake and Output 05/16/17 05/17/17 19:00 07:00 Intake Total 830 ml 1125 ml Output Total 1950 ml 1200 ml Balance -1120 ml -75 ml Intake Free Water 200 ml 300 ml IV Total 110 ml 110 ml Tube Feeding 520 ml 715 ml Output Urine Total 1950 ml 1200 ml # Bowel Movements 2 Objective General Appearance: no acute distress, cachetic, other - bedridden vent dependent AA male vent AC 450-16-30% HEENT: status post trach - Shiley#8, secretions small, white, thick Respiratory/Chest: no respiratory distress, rhonchi - few isolated Cardiovascular: regular rhythm, tachycardia Abdomen: normal bowel sounds, soft, non tender, other - G tube 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: abnormal gait - bedridden , alert - awake, porrly but responsive , other Musculoskeletal: atrophy - BLE Laboratory Tests 05/17/17 04:00: Arterial Blood pH 7.497H, Arterial Blood Partial Pressure CO2 42.8, Arterial Blood Partial Pressure O2 100.1H, Arterial Blood HCO3 32.4H, Arterial Blood Oxygen Saturation 97.2, Arterial Blood Base Excess 8.3, Son Test 05/17/17 04:15: White Blood Count 17.7H, Red Blood Count 3.81L, Hemoglobin 10.5L, Hematocrit 32.7L, Mean Corpuscular Volume 86, Mean Corpuscular Hemoglobin 27.6, Mean Corpuscular Hemoglobin Concent 32.1, Red Cell Distribution Width 17.0H, Platelet Count 554H, Mean Platelet Volume 5.7L, Neutrophils (%) (Auto) 77.6H, Lymphocytes (%) (Auto) 11.5L, Monocytes (%) (Auto) 9.7, Eosinophils (%) (Auto) 0.4, Basophils (%) (Auto) 0.8, Sodium Level 138, Potassium Level 4.8, Chloride Level 99, Carbon Dioxide Level 31H, Anion Gap 8, Blood Urea Nitrogen 34H, Creatinine 0.5L, Estimat Glomerular Filtration Rate > 60, Glucose Level 112H, Calcium Level 8.8, Phosphorus Level 3.3, Magnesium Level 1.7 Current Medications Medications (Trade) Dose Ordered Sig/Tameka Route PRN Reason Start Time Stop Time Status Last Admin Dose Admin Acetaminophen (Tylenol) 650 mg Q4H PRN ORAL FEVER 05/10/17 18:15 06/09/17 18:14 05/16/17 17:26 Albuterol/ Ipratropium (DuoNeb 0.5-3(2.5)mg/3ml) 3 ml Q4H PRN HHN Shortness of Breath 05/16/17 15:00 05/21/17 14:59 Amiodarone HCl (Cordarone) 200 mg DAILY GT 05/11/17 09:00 06/10/17 08:59 05/17/17 08:44 Ascorbic Acid 500 mg 500 mg DAILY ORAL 05/14/17 09:00 06/13/17 08:59 05/17/17 08:45 Carvedilol (Coreg) 3.125 mg Q12HR GT 05/10/17 21:00 06/09/17 20:59 05/17/17 08:45 Colistimethate Sodium (Colistin *inhalation use only*) 150 mg Q12HR@10,22 INH 05/14/17 13:00 05/28/17 12:59 05/17/17 10:22 Dextrose (Dextrose 50%) STAT PRN IV Hypoglycemia 05/10/17 18:15 06/09/17 18:14 Furosemide (Lasix) 60 mg DAILY GT 05/11/17 09:00 06/10/17 08:59 05/17/17 08:45 Levetiracetam (Keppra) 500 mg Q12HR GT 05/10/17 21:00 06/09/17 20:59 05/17/17 08:44 Lorazepam (Ativan 2mg/ml 1ml) 2 mg Q2H PRN IV For Anxiety 05/16/17 16:15 05/23/17 16:14 Morphine Sulfate (Morphine Sulfate) 4 mg Q4H PRN IVP Severe Pain (Pain Scale 7-10) 05/16/17 15:15 05/23/17 15:14 Ondansetron HCl (Zofran) 4 mg Q6H PRN IVP Nausea & Vomiting 05/10/17 18:15 06/09/17 18:14 Polyethylene Glycol (Miralax) 17 gm DAILYPRN PRN ORAL Constipation 05/10/17 18:15 06/09/17 18:14 Spironolactone (Aldactone) 25 mg DAILY ORAL 05/11/17 09:00 06/10/17 08:59 05/17/17 08:45 Tigecycline/ Dextrose (Tygacil/D5W) 110 ml @ 220 mls/hr EVERY 12 HOURS IVPB 05/14/17 23:00 05/28/17 22:59 05/17/17 08:45 Diaz (Enriqueta)Chiara NP May 17, 2017 13:15
[2017-05-17] MEDS ORDERED: Miralax 17gm pkt GT PRN (13:57)
--- NOTE | 2017-05-17 15:36 | Infectious Diseases Prog Note ---
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 - SCx : MDR - ACB , KPC - CXR: Worsening atelectasis versus pneumonia right lung base - h/o Provid a+ XDR PSA and Providencia // Stage IV sacral decubitus, not grossly infected - surveillance WCx GNR x2, strep, CONS - h/o polymicrobial MDR colonization // HCV Ab+ - Abdominal ultrasound of liver : unremarkable // Probable sepsis // Leukocytosis: persistent ro abscess // Low grade fever x1 Severe anemia SP PRBCs Sinus tachycardia Chronic VDRF SP trach, PEG h/o cardiac arrest, anoxic encephalopathy Cardiomyopathy SP defibrillator placement Paroxysmal atrial fibrillation Cachexia / severe protein-calorie malnutrition [place] resident NKDA Full Code PLAN: Tygacil and Colistin d# , add Merrem d# ( 05/15 SP IV vancomycin, Zosyn d# 5 ) ( SP Merrem and Colistin INH d# ) ( 03/13 SP vancomycin and Zosyn d# 5 ) f/u cultures,( Bl ) Monitor CBC, temperatures Monitor CMP Monitor CXR vent support, trach care, aspiration precautions wound care transfuse prn CT of C/A/P ro abscess Subjective Constitutional: Reports: fever, Denies: anorexia, chills, drenching sweats, fatigue, no symptoms, other Allergies: Coded Allergies: No Known Allergies (Unverified , 03/07/17) Objective Vital Signs Last 24 Hour Vital Signs Date Time Temp Pulse Resp B/P Pulse Ox O2 Delivery O2 Flow Rate FiO2 05/17/17 14:42 104 21 30 05/17/17 13:09 104 21 30 05/17/17 12:00 97.7 98 19 134/74 100 Mechanical Ventilator 30 05/17/17 12:00 103 05/17/17 12:00 35 05/17/17 11:00 99 26 30 05/17/17 09:14 99 17 100 Mechanical Ventilator 30 05/17/17 09:03 97 24 99 Mechanical Ventilator 30 05/17/17 09:03 97 24 30 05/17/17 08:54 97.7 114 25 127/73 100 Mechanical Ventilator 40 05/17/17 08:45 113 127/73 05/17/17 08:00 115 05/17/17 08:00 40 05/17/17 07:30 114 26 30 05/17/17 05:00 115 26 40 05/17/17 04:00 115 05/17/17 04:00 40 05/17/17 04:00 99.8 114 25 112/59 99 Mechanical Ventilator 40 05/17/17 02:55 117 28 40 05/17/17 00:55 103 21 40 05/17/17 00:44 98.3 111 24 121/84 96 Mechanical Ventilator 40 05/17/17 00:00 111 05/17/17 00:00 40 05/16/17 22:45 110 23 40 05/16/17 21:10 108 17 100 Mechanical Ventilator 40 05/16/17 21:00 106 23 99 Mechanical Ventilator 40 05/16/17 21:00 106 23 40 05/16/17 21:00 105 84/58 05/16/17 20:00 104 05/16/17 20:00 40 05/16/17 20:00 98.2 108 24 84/58 99 Mechanical Ventilator 40 05/16/17 18:55 104 21 40 05/16/17 18:25 98.9 05/16/17 17:05 111 26 40 05/16/17 16:00 40 05/16/17 16:00 112 05/16/17 16:00 100.7 111 32 110/58 99 Mechanical Ventilator Height (Feet): 5 Height (Inches): 7.00 Weight (Pounds): 128 HEENT: anicteric Respiratory/Chest: normal breath sounds Cardiovascular: regular rhythm Abdomen: no organomegaly Laboratory Tests Test 05/17/17 04:00 05/17/17 04:15 Arterial Blood pH 7.497 (7.350-7.450) Arterial Blood Partial Pressure CO2 42.8 mmHg (35.0-45.0) Arterial Blood Partial Pressure O2 100.1 mmHg (75.0-100.0) H Arterial Blood HCO3 32.4 mmol/L (22.0-26.0) H Arterial Blood Oxygen Saturation 97.2 % (92.0-98.0) Arterial Blood Base Excess 8.3 Son Test White Blood Count 17.7 K/UL (4.8-10.8) H Red Blood Count 3.81 M/UL (4.70-6.10) L Hemoglobin 10.5 G/DL (14.2-18.0) L Hematocrit 32.7 % (42.0-52.0) L Mean Corpuscular Volume 86 FL (80-99) Mean Corpuscular Hemoglobin 27.6 PG (27.0-31.0) Mean Corpuscular Hemoglobin Concent 32.1 G/DL (32.0-36.0) Red Cell Distribution Width 17.0 % (11.6-14.8) H Platelet Count 554 K/UL (150-450) H Mean Platelet Volume 5.7 FL (6.5-10.1) L Neutrophils (%) (Auto) 77.6 % (45.0-75.0) H Lymphocytes (%) (Auto) 11.5 % (20.0-45.0) L Monocytes (%) (Auto) 9.7 % (1.0-10.0) Eosinophils (%) (Auto) 0.4 % (0.0-3.0) Basophils (%) (Auto) 0.8 % (0.0-2.0) Sodium Level 138 mEQ/L (135-145) Potassium Level 4.8 mEQ/L (3.4-4.9) Chloride Level 99 mEQ/L (98-107) Carbon Dioxide Level 31 mEQ/L (20-30) H Anion Gap 8 (5-15) Blood Urea Nitrogen 34 mg/dL (7-23) H Creatinine 0.5 mg/dL (0.7-1.2) L Estimat Glomerular Filtration Rate > 60 mL/min (>60) Glucose Level 112 mg/dL (74-106) H Calcium Level 8.8 mg/dL (8.6-10.2) Phosphorus Level 3.3 mg/dL (2.5-4.8) Magnesium Level 1.7 mg/dL (1.7-2.5) Current Medications Medications (Trade) Dose Ordered Sig/Tameka Route PRN Reason Start Time Stop Time Status Last Admin Dose Admin Acetaminophen 650 mg 650 mg Q4H PRN ORAL FEVER 05/10/17 18:15 06/09/17 18:14 05/16/17 17:26 Albuterol/ Ipratropium (DuoNeb 0.5-3(2.5)mg/3ml) 3 ml Q4H PRN HHN Shortness of Breath 05/16/17 15:00 05/21/17 14:59 Amiodarone HCl (Cordarone) 200 mg DAILY GT 05/11/17 09:00 06/10/17 08:59 05/17/17 08:44 Ascorbic Acid (Vitamin C) 500 mg DAILY GT 05/17/17 13:57 06/13/17 08:59 Carvedilol (Coreg) 3.125 mg Q12HR GT 05/10/17 21:00 06/09/17 20:59 05/17/17 08:45 Colistimethate Sodium (Colistin *inhalation use only*) 150 mg Q12HR@10,22 INH 05/14/17 13:00 05/28/17 12:59 05/17/17 10:22 Dextrose (Dextrose 50%) STAT PRN IV Hypoglycemia 05/10/17 18:15 06/09/17 18:14 Furosemide (Lasix) 60 mg DAILY GT 05/11/17 09:00 06/10/17 08:59 05/17/17 08:45 Levetiracetam (Keppra) 500 mg Q12HR GT 05/10/17 21:00 06/09/17 20:59 05/17/17 08:44 Lorazepam (Ativan 2mg/ml 1ml) 2 mg Q2H PRN IV For Anxiety 05/16/17 16:15 05/23/17 16:14 Morphine Sulfate (Morphine Sulfate) 4 mg Q4H PRN IVP Severe Pain (Pain Scale 7-10) 05/16/17 15:15 05/23/17 15:14 Ondansetron HCl (Zofran) 4 mg Q6H PRN IVP Nausea & Vomiting 05/10/17 18:15 06/09/17 18:14 Polyethylene Glycol (Miralax) 17 gm DAILYPRN PRN GT Constipation 05/17/17 13:57 06/09/17 18:14 Spironolactone (Aldactone) 25 mg DAILY GT 05/17/17 13:57 06/10/17 08:59 Tigecycline/ Dextrose (Tygacil/D5W) 110 ml @ 220 mls/hr EVERY 12 HOURS IVPB 05/14/17 23:00 05/28/17 22:59 05/17/17 08:45 MARCUS PA M.D. May 17, 2017 15:36
[2017-05-17] MEDS: Meropenem 500 MG in NS 55 ML IVPB SCH (16:40)
[2017-05-17] MEDS ORDERED: 1/2 NS 1000ml IV ONE (22:32)
[2017-05-18] VITALS (7 sets, daily range): BP systolic 90–142; BP diastolic 57–71
[2017-05-18] MEDS: Meropenem 500 MG in NS 55 ML IVPB SCH ×4 (00:01→22:34)
[2017-05-18 06:12] LABS: MEAN CORPUSCULAR HEMOGLOBIN 26.8 PG (27.0-31.0); MEAN CORPUSCULAR HGB CONC 31.1 G/DL (32.0-36.0); MEAN CORPUSCULAR VOLUME 86 FL (80-99); MEAN PLATELET VOLUME 5.9 FL (6.5-10.1); PLATELET COUNT 562 K/UL (150-450); RED BLOOD COUNT 3.98 M/UL (4.70-6.10); RED CELL DISTRIBUTION WIDTH 16.9 % (11.6-14.8); WHITE BLOOD COUNT 19.3 K/UL (4.8-10.8)
[2017-05-18 06:44] LABS: ANION GAP 9 (5-15); CALCIUM 9.1 mg/dL (8.6-10.2); CARBON DIOXIDE 32 mEQ/L (20-30); CHLORIDE 100 mEQ/L (98-107); CREATININE 0.5 mg/dL (0.7-1.2); GLOMERULAR FILTRATION RATE > 60 mL/min (>60); HEMOLYSIS 4; POTASSIUM 4.8 mEQ/L (3.4-4.9); SODIUM 141 mEQ/L (135-145)
[2017-05-18 07:35] LABS: BAND NEUTROPHILS % (MANUAL) 3 % (0-8); BASOPHILS % (MANUAL) 0 % (0-2); EOSINOPHILS % (MANUAL) 1 % (0-3); LYMPHOCYTES % (MANUAL) 12 % (20-45); NEUTROPHILS % (MANUAL) 83 % (45-75); PLATELET ESTIMATE INCREASED; PLATELET MORPHOLOGY NORMAL; TOTAL CELLS COUNTED 100
[2017-05-18] MEDS: Spironolactone 25mg tab GT SCH (09:00)
--- NOTE | 2017-05-18 09:19 | Infectious Diseases Prog Note ---
Assessment/Plan Assessment/Plan A; Pneumonia Multiple pressure ulcer VDRF Cachexia Anemia P: continue Tygacil, Colistin & Meropenem Subjective ROS Limited/Unobtainable: Yes Allergies: Coded Allergies: No Known Allergies (Unverified , 03/07/17) Objective Vital Signs Last 24 Hour Vital Signs Date Time Temp Pulse Resp B/P Pulse Ox O2 Delivery O2 Flow Rate FiO2 05/18/17 08:24 95 05/18/17 08:23 30 05/18/17 08:00 97.9 104 18 96/71 99 Mechanical Ventilator 05/18/17 07:11 101 18 30 05/18/17 04:56 101 24 30 05/18/17 04:00 98.0 101 24 108/67 100 Mechanical Ventilator 30 05/18/17 04:00 103 05/18/17 04:00 30 05/18/17 02:33 102 21 30 05/18/17 00:57 98.1 105 20 142/67 98 Mechanical Ventilator 05/18/17 00:36 103 26 30 05/18/17 00:00 30 05/18/17 00:00 105 05/17/17 23:01 103 24 30 05/17/17 21:19 107 110/54 05/17/17 21:10 110 24 100 Mechanical Ventilator 30 05/17/17 21:10 115 24 30 05/17/17 21:00 111 24 98 Mechanical Ventilator 30 05/17/17 20:00 98.1 107 26 93/54 98 Mechanical Ventilator 30 05/17/17 20:00 30 05/17/17 19:15 104 05/17/17 18:40 104 24 30 05/17/17 16:38 98 22 30 05/17/17 16:00 101 05/17/17 16:00 30 05/17/17 16:00 98.1 106 26 132/63 100 Mechanical Ventilator 30 05/17/17 14:42 104 21 30 05/17/17 13:09 104 21 30 05/17/17 12:00 97.7 98 19 134/74 100 Mechanical Ventilator 30 05/17/17 12:00 103 05/17/17 12:00 35 05/17/17 11:00 99 26 30 Height (Feet): 5 Height (Inches): 7.00 Weight (Pounds): 126 General Appearance: cachetic HEENT: status post trach Respiratory/Chest: other - coarse sounds, on ventilator Cardiovascular: normal rate Abdomen: soft, non tender, other - GT feeding Extremities: no edema 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: alert, responsive Musculoskeletal: atrophy Laboratory Tests Test 05/18/17 05:00 White Blood Count 19.3 K/UL (4.8-10.8) H Red Blood Count 3.98 M/UL (4.70-6.10) L Hemoglobin 10.7 G/DL (14.2-18.0) L Hematocrit 34.3 % (42.0-52.0) L Mean Corpuscular Volume 86 FL (80-99) Mean Corpuscular Hemoglobin 26.8 PG (27.0-31.0) L Mean Corpuscular Hemoglobin Concent 31.1 G/DL (32.0-36.0) L Red Cell Distribution Width 16.9 % (11.6-14.8) H Platelet Count 562 K/UL (150-450) H Mean Platelet Volume 5.9 FL (6.5-10.1) L Neutrophils (%) (Auto) % (45.0-75.0) Lymphocytes (%) (Auto) % (20.0-45.0) Monocytes (%) (Auto) % (1.0-10.0) Eosinophils (%) (Auto) % (0.0-3.0) Basophils (%) (Auto) % (0.0-2.0) Differential Total Cells Counted 100 Neutrophils % (Manual) 83 % (45-75) H Lymphocytes % (Manual) 12 % (20-45) L Monocytes % (Manual) 1 % (1-10) Eosinophils % (Manual) 1 % (0-3) Basophils % (Manual) 0 % (0-2) Band Neutrophils 3 % (0-8) Platelet Estimate Increased H Platelet Morphology Normal Red Blood Cell Morphology Normal Sodium Level 141 mEQ/L (135-145) Potassium Level 4.8 mEQ/L (3.4-4.9) Chloride Level 100 mEQ/L (98-107) Carbon Dioxide Level 32 mEQ/L (20-30) H Anion Gap 9 (5-15) Blood Urea Nitrogen 36 mg/dL (7-23) H Creatinine 0.5 mg/dL (0.7-1.2) L Estimat Glomerular Filtration Rate > 60 mL/min (>60) Glucose Level 112 mg/dL (74-106) H Calcium Level 9.1 mg/dL (8.6-10.2) Current Medications Medications (Trade) Dose Ordered Sig/Tameka Route PRN Reason Start Time Stop Time Status Last Admin Dose Admin Acetaminophen 650 mg 650 mg Q4H PRN ORAL FEVER 05/10/17 18:15 06/09/17 18:14 05/16/17 17:26 Albuterol/ Ipratropium (DuoNeb 0.5-3(2.5)mg/3ml) 3 ml Q4H PRN HHN Shortness of Breath 05/16/17 15:00 05/21/17 14:59 Amiodarone HCl (Cordarone) 200 mg DAILY GT 05/11/17 09:00 06/10/17 08:59 05/17/17 08:44 Ascorbic Acid (Vitamin C) 500 mg DAILY GT 05/17/17 13:57 06/13/17 08:59 Carvedilol (Coreg) 3.125 mg Q12HR GT 05/10/17 21:00 06/09/17 20:59 05/17/17 21:19 Colistimethate Sodium (Colistin *inhalation use only*) 150 mg Q12HR@10,22 INH 05/14/17 13:00 05/28/17 12:59 05/17/17 21:27 Dextrose (Dextrose 50%) STAT PRN IV Hypoglycemia 05/10/17 18:15 06/09/17 18:14 Furosemide (Lasix) 60 mg DAILY GT 05/11/17 09:00 06/10/17 08:59 05/17/17 08:45 Levetiracetam (Keppra) 500 mg Q12HR GT 05/10/17 21:00 06/09/17 20:59 05/17/17 21:17 Lorazepam (Ativan 2mg/ml 1ml) 2 mg Q2H PRN IV For Anxiety 05/16/17 16:15 05/23/17 16:14 Meropenem/Sodium Chloride (Merrem/Sodium Chloride) 55 ml @ 110 mls/hr EVERY 8 HOURS IVPB 05/17/17 16:00 05/22/17 15:59 05/18/17 06:13 Morphine Sulfate (Morphine Sulfate) 4 mg Q4H PRN IVP Severe Pain (Pain Scale 7-10) 05/16/17 15:15 05/23/17 15:14 Ondansetron HCl (Zofran) 4 mg Q6H PRN IVP Nausea & Vomiting 05/10/17 18:15 06/09/17 18:14 Polyethylene Glycol (Miralax) 17 gm DAILYPRN PRN GT Constipation 05/17/17 13:57 06/09/17 18:14 Spironolactone 25 mg 25 mg DAILY GT 05/17/17 13:57 06/10/17 08:59 Tigecycline/ Dextrose (Tygacil/D5W) 110 ml @ 220 mls/hr EVERY 12 HOURS IVPB 05/14/17 23:00 05/28/17 22:59 05/17/17 21:18 CHRISTINE MERA May 18, 2017 09:19
[2017-05-18] MEDS: Tigecycline 50 MG in D5W 110 ML IVPB SCH ×2 (09:26→21:21)
[2017-05-18] MEDS: Ascorbic Acid 500mg tab GT SCH (09:26)
[2017-05-18] MEDS: levETIRAcetam 500mg/5ml Liquid GT SCH ×2 (09:26→21:21)
[2017-05-18] MEDS: Amiodarone 200mg tab GT SCH (09:27)
--- NOTE | 2017-05-18 10:46 | Pulmonology Progress Note ---
Assessment/Plan Assessment/Plan ASSESSMENT sepsis recurrent HCAP/VAP tachycardia acute on chronic respiratory failure VDRF/trach dysphagia, G tube anemia s/p blood transfusion severe cardiomyopathy AICD HTN hx of hep C st 4 sacral decub POA anoxic encephalopathy hx of cardiac arrest severe protein calorie malnutrition hypo Mg PLAN OF CARE LIGIA status vent trach care, pulmonary toilet ABG stable on current settings, keep as is and titrate settings as needed abx, ID follows Fup with CXR in am wound cx colonized as per ID sputum cx + Acinetobacter MDR, KPC blood culture pending CT C/A/P pending to r/o abscess Venous Duplex BLE negative last ECHO with EF 30-35% continue BB, Amiodarone, Lasix, Aldactone for management of systolic heart failure monitor HH , transfuse prn stool OB negative x 2 GI follows G tube replaced PPI strict aspiration precautions GT feeding, monitor tolerance wound care as per wound nurse recommendations ST likely 2 to infection, Mg replaced , stable afterwards bowel regimen pain management case discussed and evaluated by supervising physician Subjective Allergies: Coded Allergies: No Known Allergies (Unverified , 03/07/17) Subjective significant leukocytosis persist, afebrile ABG stable on current settings Objective Last 24 Hour Vital Signs Date Time Temp Pulse Resp B/P Pulse Ox O2 Delivery O2 Flow Rate FiO2 05/18/17 09:00 105 96/71 05/18/17 08:24 95 05/18/17 08:23 30 05/18/17 08:00 97.9 104 18 96/71 99 Mechanical Ventilator 05/18/17 07:11 101 18 30 05/18/17 04:56 101 24 30 05/18/17 04:00 98.0 101 24 108/67 100 Mechanical Ventilator 30 05/18/17 04:00 103 05/18/17 04:00 30 05/18/17 02:33 102 21 30 05/18/17 00:57 98.1 105 20 142/67 98 Mechanical Ventilator 30 05/18/17 00:36 103 26 30 05/18/17 00:00 30 05/18/17 00:00 105 05/17/17 23:01 103 24 30 05/17/17 21:19 107 110/54 05/17/17 21:10 110 24 100 Mechanical Ventilator 30 05/17/17 21:10 115 24 30 05/17/17 21:00 111 24 98 Mechanical Ventilator 30 05/17/17 20:00 98.1 107 26 93/54 98 Mechanical Ventilator 30 05/17/17 20:00 30 05/17/17 19:15 104 05/17/17 18:40 104 24 30 05/17/17 16:38 98 22 30 05/17/17 16:00 101 05/17/17 16:00 30 05/17/17 16:00 98.1 106 26 132/63 100 Mechanical Ventilator 30 05/17/17 14:42 104 21 30 05/17/17 13:09 104 21 30 05/17/17 12:00 97.7 98 19 134/74 100 Mechanical Ventilator 30 05/17/17 12:00 103 05/17/17 12:00 35 05/17/17 11:00 99 26 30 Intake and Output 05/17/17 05/18/17 19:00 07:00 Intake Total 910 ml 355 ml Output Total 1100 ml 700 ml Balance -190 ml -345 ml Intake Free Water 50 ml 30 ml IV Total 110 ml Tube Feeding 650 ml 325 ml Other 100 ml Output Urine Total 1100 ml 700 ml # Bowel Movements 2 3 Objective General Appearance: no acute distress, cachetic, other - bedridden vent dependent AA male vent AC 450-16-30% HEENT: status post trach - Shiley#[id number], secretions small, white, thick Respiratory/Chest: no respiratory distress, few isolated rhonchi Cardiovascular: regular rhythm, tachycardia Abdomen: normal bowel sounds, soft, non tender, other - G tube 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: abnormal gait/ bedridden , alert - awake, poorly but responsive , other Musculoskeletal: atrophy - BLE Laboratory Tests 05/18/17 05:00: White Blood Count 19.3H, Red Blood Count 3.98L, Hemoglobin 10.7L, Hematocrit 34.3L, Mean Corpuscular Volume 86, Mean Corpuscular Hemoglobin 26.8L, Mean Corpuscular Hemoglobin Concent 31.1L, Red Cell Distribution Width 16.9H, Platelet Count 562H, Mean Platelet Volume 5.9L, Neutrophils (%) (Auto) , Lymphocytes (%) (Auto) , Monocytes (%) (Auto) , Eosinophils (%) (Auto) , Basophils (%) (Auto) , Differential Total Cells Counted 100, Neutrophils % ( Manual) 83H, Lymphocytes % (Manual) 12L, Monocytes % (Manual) 1, Eosinophils % ( Manual) 1, Basophils % (Manual) 0, Band Neutrophils 3, Platelet Estimate IncreasedH, Platelet Morphology Normal, Red Blood Cell Morphology Normal, Sodium Level 141, Potassium Level 4.8, Chloride Level 100, Carbon Dioxide Level 32H, Anion Gap 9, Blood Urea Nitrogen 36H, Creatinine 0.5L, Estimat Glomerular Filtration Rate > 60, Glucose Level 112H, Calcium Level 9.1 Current Medications Medications (Trade) Dose Ordered Sig/Tameka Route PRN Reason Start Time Stop Time Status Last Admin Dose Admin Acetaminophen 650 mg 650 mg Q4H PRN ORAL FEVER 05/10/17 18:15 06/09/17 18:14 05/16/17 17:26 Albuterol/ Ipratropium (DuoNeb 0.5-3(2.5)mg/3ml) 3 ml Q4H PRN HHN Shortness of Breath 05/16/17 15:00 05/21/17 14:59 Amiodarone HCl (Cordarone) 200 mg DAILY GT 05/11/17 09:00 06/10/17 08:59 05/18/17 09:27 Ascorbic Acid (Vitamin C) 500 mg DAILY GT 05/17/17 13:57 06/13/17 08:59 05/18/17 09:26 Carvedilol (Coreg) 3.125 mg Q12HR GT 05/10/17 21:00 06/09/17 20:59 05/17/17 21:19 Colistimethate Sodium (Colistin *inhalation use only*) 150 mg Q12HR@10,22 INH 05/14/17 13:00 05/28/17 12:59 05/17/17 21:27 Dextrose (Dextrose 50%) STAT PRN IV Hypoglycemia 05/10/17 18:15 06/09/17 18:14 Furosemide (Lasix) 60 mg DAILY GT 05/11/17 09:00 06/10/17 08:59 05/17/17 08:45 Levetiracetam (Keppra) 500 mg Q12HR GT 05/10/17 21:00 06/09/17 20:59 05/18/17 09:26 Lorazepam (Ativan 2mg/ml 1ml) 2 mg Q2H PRN IV For Anxiety 05/16/17 16:15 05/23/17 16:14 Meropenem/Sodium Chloride (Merrem/Sodium Chloride) 55 ml @ 110 mls/hr EVERY 8 HOURS IVPB 05/17/17 16:00 05/22/17 15:59 05/18/17 06:13 Morphine Sulfate (Morphine Sulfate) 4 mg Q4H PRN IVP Severe Pain (Pain Scale 7-10) 05/16/17 15:15 05/23/17 15:14 Ondansetron HCl (Zofran) 4 mg Q6H PRN IVP Nausea & Vomiting 05/10/17 18:15 06/09/17 18:14 Polyethylene Glycol (Miralax) 17 gm DAILYPRN PRN GT Constipation 05/17/17 13:57 06/09/17 18:14 Spironolactone 25 mg 25 mg DAILY GT 05/17/17 13:57 06/10/17 08:59 Tigecycline/ Dextrose (Tygacil/D5W) 110 ml @ 220 mls/hr EVERY 12 HOURS IVPB 05/14/17 23:00 05/28/17 22:59 05/18/17 09:26 Diaz Washingtonsteve)Chiara NP May 18, 2017 10:46
[2017-05-18] MEDS: Colistin for inhalation INH SCH ×2 (11:39→22:12)
[2017-05-18] MEDS ORDERED: NS 275ml ONE (17:25)
[2017-05-18] MEDS ORDERED: Tubing IV Secondary IV ONE (17:25)
[2017-05-19 04:56] VITALS: BP 104/72
[2017-05-19] MEDS: Meropenem 500 MG in NS 55 ML IVPB SCH ×3 (05:16→22:05)
[2017-05-19 05:27] LABS: MEAN CORPUSCULAR HGB CONC 32.1 G/DL (32.0-36.0); MEAN CORPUSCULAR VOLUME 87 FL (80-99); MEAN PLATELET VOLUME 5.9 FL (6.5-10.1); PLATELET COUNT 585 K/UL (150-450); RED BLOOD COUNT 3.79 M/UL (4.70-6.10); RED CELL DISTRIBUTION WIDTH 16.6 % (11.6-14.8); WHITE BLOOD COUNT 20.5 K/UL (4.8-10.8)
[2017-05-19 06:03] LABS: ANION GAP 12 (5-15); CALCIUM 9.1 mg/dL (8.6-10.2); CARBON DIOXIDE 30 mEQ/L (20-30); CHLORIDE 101 mEQ/L (98-107); CREATININE 0.5 mg/dL (0.7-1.2); GLOMERULAR FILTRATION RATE > 60 mL/min (>60); HEMOLYSIS 1; POTASSIUM 4.7 mEQ/L (3.4-4.9); SODIUM 143 mEQ/L (135-145)
[2017-05-19 08:00] VITALS: BP 94/68
--- NOTE | 2017-05-19 08:52 | Diagnostic Imaging Report ---
\H\CT THORAX\N\ Indications: Chest pain, clinical suspicion of abscess Technique: Continuous helical CT imaging of the thorax was performed with automatic exposure control following intravenous administration of nonionic iodine contrast, on a Siemens sensation [address] scanner. Axial, coronal, and sagittal images were reconstructed at 5 mm slice thickness. CTDI volume(s): 12, 10 mGy Total DLP: 889 mGy-cm (Includes CT abdomen pelvis) Findings: Comparison: None Cystic lucencies in left lung apex. Wedge-shaped, pleural-based peripheral consolidation and volume loss with mild bronchiectasis and dependent portions both lung bases. Suggestion of mild interstitial nodularity in the nonconsolidated portions of both lung bases, left greater than right. No pleural abnormality. Heart enlarged. Four-chamber pacemaker leads. No pericardial abnormality. Central mediastinal vasculature unremarkable. No mediastinal or hilar enlarged lymph nodes, other abnormal mass or fluid collection. Layering fluid or debris in lumens of the trachea, mainstem bronchi. Tracheostomy tube in place. Pacemaker generator and upper left anterior chest wall subcutaneous soft tissues. Diffuse paucity of body fat. Imaged upper abdominal anatomy unremarkable. Small disc marginal osteophytes in thoracic spine. IMPRESSION: No evidence of abscess Pulmonary bibasal parenchymal consolidation--atelectasis versus pneumonia, may relate to aspiration, given tracheobronchial contents, may be acute and/or chronic Nonspecific interstitial nodularity in both lung bases Bullae versus blebs left lung apex Cardiomegaly with pacemaker Cachexia Mild degenerative spondylosis Tracheostomy \H\CT ABDOMEN PELVIS\N\ Indications: Abdominal pain, clinical suspicion of abscess Technique: Continuous helical CT imaging of the abdomen and pelvis was performed with automatic exposure control following administration of oral and intravenous nonionic iodine contrast, on a Siemens sensation [address] scanner. Axial, coronal, and sagittal images were reconstructed at 5 mm slice thickness. CTDI volume(s): As above mGy Total DLP: As above mGy-cm Findings: Comparison: None Percutaneous gastrostomy tube, Buckley catheter in place. Oral contrast has passed throughout the gastrointestinal tract to the rectum. Entire tract nondilated. Stomach and opacified and nondistended, limiting evaluation. Suggestion of mild circumferential mural thickening of distal rectum. No additional obvious mural thickening, adjacent stranding, associated extraluminal gas or fluid collections. 3 mm stone upper pole right kidney. Subcentimeter circumscribed low-attenuation focus upper pole left renal cortex, not further characterizable. Bilateral renal collecting systems and ureters nondilated. No surrounding stranding or fluid. Urinary bladder collapsed with apparent mild mural thickening, contains gas. Scattered arterial mural calcifications. Flow-limiting stenosis in the distal aspect of the left common iliac artery not excludable.. Liver, gallbladder, pancreas, spleen, adrenal glands, prostate, seminal vesicles, retroperitoneum, mesentery, remainder visualized pelvic anatomy demonstrates no other obvious acute abnormality. Diffuse paucity of body fat. Deep soft tissue defect over lower sacrum and coccyx to bone surface. Adjacent soft tissue gas. No associated fluid collection. Chronic appearing deformity of the subjacent sacrococcygeal junction with partial absence of bone. Disc margin osteophytes in lumbar spine. Irregular calcification/ossification in musculature/soft tissues adjacent to both hip joints. IMPRESSION: No evidence of abscess Stage IV sacrococcygeal decubitus ulcer with suggestion of underlying chronic osteomyelitis. Apparent thickening of the distal rectal wall may represent hemorrhoids, proctitis, neoplasm Gas and urinary bladder lumen li -- rosalie secondary to presence of Buckley catheter. Cystitis not excludable. Apparent mild mural thickening a collapsed urinary bladder--underdistention versus hypertrophy or cystitis Limited evaluation of stomach due to technical factors described. Mural pathology not excludable. No other evidence of acute abdominopelvic disease Nonobstructive right nephrolithiasis Tiny cortical low-attenuation focus left kidney not further characterizable Arteriosclerosis. Significant stenosis in distal aspect of left common iliac artery not excludable. Cachexia Degenerative spondylosis Bilateral hip heterotopic ossification.
[2017-05-19] MEDS: Spironolactone 25mg tab GT SCH (09:00)
[2017-05-19] MEDS: Ascorbic Acid 500mg tab GT SCH (09:02)
[2017-05-19] MEDS: Amiodarone 200mg tab GT SCH (09:02)
[2017-05-19] MEDS: Tigecycline 50 MG in D5W 110 ML IVPB SCH ×2 (09:02→21:05)
[2017-05-19] MEDS: levETIRAcetam 500mg/5ml Liquid GT SCH ×2 (09:03→21:05)
[2017-05-19 09:11] LABS: ANISOCYTOSIS 1+; BAND NEUTROPHILS % (MANUAL) 0 % (0-8); BASOPHILS % (MANUAL) 0 % (0-2); EOSINOPHILS % (MANUAL) 0 % (0-3); LYMPHOCYTES % (MANUAL) 11 % (20-45); NEUTROPHILS % (MANUAL) 82 % (45-75); PLATELET ESTIMATE INCREASED; PLATELET MORPHOLOGY NORMAL; TOTAL CELLS COUNTED 100
[2017-05-19] MEDS: Colistin for inhalation INH SCH ×2 (10:28→22:40)
--- NOTE | 2017-05-19 11:23 | Pulmonology Progress Note ---
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 Renal: F/U I&O, keep IV fluid Infectious Disease: check cultures Gastrointestinal: continue feedings/current rate Endocrine: monitor blood sugar, check TSH, continue sliding scale insulin Hematologic: monitor H/H, transfuse if hgb<8.5 Neurologic: PRN Ativan, PRN Morphine, keep patient comfortable Affect: PRN ativan Notes Reviewed: cardio, renal Discussed with: consultants Subjective ROS Limited/Unobtainable: Yes Allergies: Coded Allergies: No Known Allergies (Unverified , 03/07/17) Objective Last 24 Hour Vital Signs Date Time Temp Pulse Resp B/P Pulse Ox O2 Delivery O2 Flow Rate FiO2 05/19/17 10:38 105 25 100 Mechanical Ventilator 30 05/19/17 10:32 109 26 30 05/19/17 10:29 103 20 99 Mechanical Ventilator 30 05/19/17 09:00 111 94/68 05/19/17 08:52 108 26 30 05/19/17 08:00 97.2 111 26 94/68 98 Mechanical Ventilator 30 05/19/17 07:43 102 05/19/17 07:43 30 05/19/17 07:06 109 25 30 05/19/17 04:56 97.3 114 18 104/72 98 Mechanical Ventilator 30 05/19/17 04:51 116 25 30 05/19/17 04:00 30 05/19/17 03:42 112 05/19/17 03:02 111 23 30 05/19/17 00:57 117 29 30 05/19/17 00:00 30 05/19/17 00:00 115 05/18/17 23:55 115 05/18/17 23:53 101/67 05/18/17 23:52 98.2 117 16 98 Mechanical Ventilator 30 05/18/17 23:07 118 30 30 05/18/17 22:22 107 21 99 Mechanical Ventilator 30 05/18/17 22:12 105 20 99 Mechanical Ventilator 30 05/18/17 21:24 122 30 30 05/18/17 21:00 90/63 05/18/17 20:00 05/18/17 20:00 30 05/18/17 19:59 98.4 126 16 90/63 98 Mechanical Ventilator 30 05/18/17 19:48 126 05/18/17 19:12 128 25 30 05/18/17 16:48 121 28 30 05/18/17 16:00 97.5 120 16 92/67 92 Mechanical Ventilator 30 05/18/17 16:00 112 05/18/17 16:00 30 05/18/17 14:38 113 18 30 05/18/17 12:41 114 20 30 05/18/17 12:12 97.7 107 18 105/57 98 Mechanical Ventilator 05/18/17 12:08 30 05/18/17 12:08 102 Intake and Output 05/18/17 05/19/17 19:00 07:00 Intake Total 980 ml 2030 ml Output Total 650 ml 360 ml Balance 330 ml 1670 ml Intake Free Water 100 ml 400 ml IV Total 165 ml 330 ml Tube Feeding 195 ml 1300 ml Other 520 ml Output Urine Total 650 ml 360 ml # Bowel Movements 5 7 HEENT: normocephalic, atraumatic Respiratory/Chest: chest wall non-tender, lungs clear Cardiovascular: normal peripheral pulses, normal rate Abdomen: normal bowel sounds, soft, non tender Genitourinary: normal external genitalia Extremities: no cyanosis Skin: no lesions, no ulcers 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 Microbiology Date/Time Source Procedure Growth Status 05/17/17 16:25 Blood Blood Culture - Preliminary NO GROWTH AFTER 24 HOURS Resulted 05/17/17 16:20 Blood Blood Culture - Preliminary NO GROWTH AFTER 24 HOURS Resulted Laboratory Tests 05/19/17 03:45: White Blood Count 20.5H, Red Blood Count 3.79L, Hemoglobin 10.6L, Hematocrit 33.1L, Mean Corpuscular Volume 87, Mean Corpuscular Hemoglobin 28.0, Mean Corpuscular Hemoglobin Concent 32.1, Red Cell Distribution Width 16.6H, Platelet Count 585H, Mean Platelet Volume 5.9L, Neutrophils (%) (Auto) , Lymphocytes (%) (Auto) , Monocytes (%) (Auto) , Eosinophils (%) (Auto) , Basophils (%) (Auto) , Differential Total Cells Counted 100, Neutrophils % ( Manual) 82H, Lymphocytes % (Manual) 11L, Monocytes % (Manual) 7, Eosinophils % ( Manual) 0, Basophils % (Manual) 0, Band Neutrophils 0, Platelet Estimate IncreasedH, Platelet Morphology Normal, Anisocytosis 1+, Sodium Level 143, Potassium Level 4.7, Chloride Level 101, Carbon Dioxide Level 30, Anion Gap 12, Blood Urea Nitrogen 38H, Creatinine 0.5L, Estimat Glomerular Filtration Rate > 60, Glucose Level 137H, Calcium Level 9.1 Current Medications Medications (Trade) Dose Ordered Sig/Tameka Route PRN Reason Start Time Stop Time Status Last Admin Dose Admin Acetaminophen 650 mg 650 mg Q4H PRN ORAL FEVER 05/10/17 18:15 06/09/17 18:14 05/16/17 17:26 Albuterol/ Ipratropium (DuoNeb 0.5-3(2.5)mg/3ml) 3 ml Q4H PRN HHN Shortness of Breath 05/16/17 15:00 05/21/17 14:59 Amiodarone HCl (Cordarone) 200 mg DAILY GT 05/11/17 09:00 06/10/17 08:59 05/19/17 09:02 Ascorbic Acid (Vitamin C) 500 mg DAILY GT 05/17/17 13:57 06/13/17 08:59 05/19/17 09:02 Carvedilol (Coreg) 3.125 mg Q12HR GT 05/10/17 21:00 06/09/17 20:59 05/17/17 21:19 Colistimethate Sodium (Colistin *inhalation use only*) 150 mg Q12HR@10,22 INH 05/14/17 13:00 05/28/17 12:59 05/19/17 10:28 Dextrose (Dextrose 50%) STAT PRN IV Hypoglycemia 05/10/17 18:15 06/09/17 18:14 Furosemide (Lasix) 60 mg DAILY GT 05/11/17 09:00 06/10/17 08:59 05/17/17 08:45 Levetiracetam (Keppra) 500 mg Q12HR GT 05/10/17 21:00 06/09/17 20:59 05/19/17 09:03 Lorazepam (Ativan 2mg/ml 1ml) 2 mg Q2H PRN IV For Anxiety 05/16/17 16:15 05/23/17 16:14 Meropenem/Sodium Chloride (Merrem/Sodium Chloride) 55 ml @ 110 mls/hr EVERY 8 HOURS IVPB 05/17/17 16:00 05/22/17 15:59 05/19/17 05:16 Morphine Sulfate (Morphine Sulfate) 4 mg Q4H PRN IVP Severe Pain (Pain Scale 7-10) 05/16/17 15:15 05/23/17 15:14 Ondansetron HCl (Zofran) 4 mg Q6H PRN IVP Nausea & Vomiting 05/10/17 18:15 06/09/17 18:14 Polyethylene Glycol (Miralax) 17 gm DAILYPRN PRN GT Constipation 05/17/17 13:57 06/09/17 18:14 Spironolactone 25 mg 25 mg DAILY GT 05/17/17 13:57 06/10/17 08:59 Tigecycline/ Dextrose (Tygacil/D5W) 110 ml @ 220 mls/hr EVERY 12 HOURS IVPB 05/14/17 23:00 05/28/17 22:59 05/19/17 09:02 ODETTE SMILEY May 19, 2017 11:23
[2017-05-19 12:00] VITALS: BP 103/66
--- NOTE | 2017-05-19 13:37 | GI Progress Note ---
Assessment/Plan Problems: (1) Anemia ICD Codes: D64.9 - Anemia, unspecified SNOMED: 075431782 Qualifiers: Qualified Codes: D64.9 - Anemia, unspecified (2) EF of 30 (3) Feeding by G-tube ICD Codes: Z93.1 - Gastrostomy status SNOMED: 593723147, 010241334 (4) Transaminitis ICD Codes: R74.0 - Nonspecific elevation of levels of transaminase and lactic acid dehydrogenase [LDH] SNOMED: 846489371 (5) Leukocytosis ICD Codes: D72.829 - Elevated white blood cell count, unspecified SNOMED: 249784472, 565649262 Status: stable Status Narrative Discussed with Dr. Alex. Assessment/Plan occult blood stool >> negative x 2 stable H&H, transfuse prn GT replaced. GTFs per dietary, monitor residuals PPI for GI prophylaxis abx fu labs Subjective Subjective limited Objective Last 24 Hour Vital Signs Date Time Temp Pulse Resp B/P Pulse Ox O2 Delivery O2 Flow Rate FiO2 05/19/17 12:03 30 05/19/17 12:03 110 05/19/17 12:00 100.9 120 31 103/66 92 Mechanical Ventilator 05/19/17 10:38 105 25 100 Mechanical Ventilator 30 05/19/17 10:32 109 26 30 05/19/17 10:29 103 20 99 Mechanical Ventilator 05/19/17 09:00 111 94/68 05/19/17 08:52 108 26 30 05/19/17 08:00 97.2 111 26 94/68 98 Mechanical Ventilator 05/19/17 07:43 102 05/19/17 07:43 30 05/19/17 07:06 109 25 30 05/19/17 04:56 97.3 114 18 104/72 98 Mechanical Ventilator 30 05/19/17 04:51 116 25 30 05/19/17 04:00 30 05/19/17 03:42 112 05/19/17 03:02 111 23 30 05/19/17 00:57 117 29 30 05/19/17 00:00 30 05/19/17 00:00 115 05/18/17 23:55 115 05/18/17 23:53 101/67 05/18/17 23:52 98.2 117 16 98 Mechanical Ventilator 30 05/18/17 23:07 118 30 30 05/18/17 22:22 107 21 99 Mechanical Ventilator 30 05/18/17 22:12 105 20 99 Mechanical Ventilator 30 05/18/17 21:24 122 30 30 05/18/17 21:00 90/63 05/18/17 20:00 05/18/17 20:00 30 05/18/17 19:59 98.4 126 16 90/63 98 Mechanical Ventilator 30 05/18/17 19:48 126 05/18/17 19:12 128 25 30 05/18/17 16:48 121 28 30 05/18/17 16:00 97.5 120 16 92/67 92 Mechanical Ventilator 30 05/18/17 16:00 112 05/18/17 16:00 30 05/18/17 14:38 113 18 30 Intake and Output 05/18/17 05/19/17 18:59 06:59 Intake Total 850 ml 2095 ml Output Total 650 ml 360 ml Balance 200 ml 1735 ml Intake Free Water 100 ml 400 ml IV Total 165 ml 330 ml Tube Feeding 65 ml 1365 ml Other 520 ml Output Urine Total 650 ml 360 ml # Bowel Movements 5 7 Laboratory Tests Test 05/19/17 03:45 White Blood Count 20.5 K/UL (4.8-10.8) H Red Blood Count 3.79 M/UL (4.70-6.10) L Hemoglobin 10.6 G/DL (14.2-18.0) L Hematocrit 33.1 % (42.0-52.0) L Mean Corpuscular Volume 87 FL (80-99) Mean Corpuscular Hemoglobin 28.0 PG (27.0-31.0) Mean Corpuscular Hemoglobin Concent 32.1 G/DL (32.0-36.0) Red Cell Distribution Width 16.6 % (11.6-14.8) H Platelet Count 585 K/UL (150-450) H Mean Platelet Volume 5.9 FL (6.5-10.1) L Neutrophils (%) (Auto) % (45.0-75.0) Lymphocytes (%) (Auto) % (20.0-45.0) Monocytes (%) (Auto) % (1.0-10.0) Eosinophils (%) (Auto) % (0.0-3.0) Basophils (%) (Auto) % (0.0-2.0) Differential Total Cells Counted 100 Neutrophils % (Manual) 82 % (45-75) H Lymphocytes % (Manual) 11 % (20-45) L Monocytes % (Manual) 7 % (1-10) Eosinophils % (Manual) 0 % (0-3) Basophils % (Manual) 0 % (0-2) Band Neutrophils 0 % (0-8) Platelet Estimate Increased H Platelet Morphology Normal Anisocytosis 1+ Sodium Level 143 mEQ/L (135-145) Potassium Level 4.7 mEQ/L (3.4-4.9) Chloride Level 101 mEQ/L (98-107) Carbon Dioxide Level 30 mEQ/L (20-30) Anion Gap 12 (5-15) Blood Urea Nitrogen 38 mg/dL (7-23) H Creatinine 0.5 mg/dL (0.7-1.2) L Estimat Glomerular Filtration Rate > 60 mL/min (>60) Glucose Level 137 mg/dL (74-106) H Calcium Level 9.1 mg/dL (8.6-10.2) Height (Feet): 5 Height (Inches): 7.00 Weight (Pounds): 126 General Appearance: no apparent distress, alert Cardiovascular: normal rate Respiratory/Chest: no respiratory distress, other - mech vent Abdominal Exam: GT site - c/d/i Lani Last N.P. May 19, 2017 13:37
[2017-05-19] MEDS ORDERED: Tubing IV Secondary IV ONE (15:40)
[2017-05-19 16:00] VITALS: BP 99/69
--- NOTE | 2017-05-19 19:34 | Infectious Diseases Prog Note ---
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 - SCx : MDR - ACB , KPC - CXR: Worsening atelectasis versus pneumonia right lung base - h/o Provid a+ XDR PSA and Providencia // Stage IV sacral decubitus, not grossly infected - surveillance WCx GNR x2, strep, CONS - h/o polymicrobial MDR colonization // HCV Ab+ - Abdominal ultrasound of liver : unremarkable // Probable sepsis // Leukocytosis: persistent CT of C/A/P : No evidence of abscess , Pulmonary bibasal parenchymal consolidation // Low grade fever x1 Severe anemia SP PRBCs Sinus tachycardia Chronic VDRF SP trach, PEG h/o cardiac arrest, anoxic encephalopathy Cardiomyopathy SP defibrillator placement Paroxysmal atrial fibrillation Cachexia / severe protein-calorie malnutrition [place] resident NKDA Full Code PLAN: Tygacil and Colistin d# / , add Merrem d# ( 05/15 SP IV vancomycin, Zosyn d# 5 ) ( SP Merrem and Colistin INH d# ) ( 03/13 SP vancomycin and Zosyn d# 5 ) f/u cultures,( Bl ) Monitor CBC, temperatures Monitor CMP Monitor CXR vent support, trach care, aspiration precautions wound care transfuse prn Subjective Constitutional: Denies: anorexia, chills, drenching sweats, fatigue, fever, no symptoms, other Allergies: Coded Allergies: No Known Allergies (Unverified , 03/07/17) Objective Vital Signs Last 24 Hour Vital Signs Date Time Temp Pulse Resp B/P Pulse Ox O2 Delivery O2 Flow Rate FiO2 05/19/17 19:18 112 25 30 05/19/17 16:53 112 24 30 05/19/17 16:16 113 05/19/17 16:00 108 05/19/17 16:00 30 05/19/17 16:00 97.3 117 24 99/69 99 Mechanical Ventilator 05/19/17 14:49 108 18 30 05/19/17 12:03 30 05/19/17 12:03 110 05/19/17 12:00 105 25 30 05/19/17 12:00 100.9 120 31 103/66 92 Mechanical Ventilator 30 05/19/17 10:38 105 25 100 Mechanical Ventilator 30 05/19/17 10:32 109 26 30 05/19/17 10:29 103 20 99 Mechanical Ventilator 30 05/19/17 09:00 111 94/68 05/19/17 08:52 108 26 30 05/19/17 08:00 97.2 111 26 94/68 98 Mechanical Ventilator 30 05/19/17 07:43 102 05/19/17 07:43 30 05/19/17 07:06 109 25 30 05/19/17 04:56 97.3 114 18 104/72 98 Mechanical Ventilator 30 05/19/17 04:51 116 25 30 05/19/17 04:00 30 05/19/17 03:42 112 05/19/17 03:02 111 23 30 05/19/17 00:57 117 29 30 05/19/17 00:00 30 05/19/17 00:00 115 05/18/17 23:55 115 05/18/17 23:53 101/67 05/18/17 23:52 98.2 117 16 98 Mechanical Ventilator 05/18/17 23:07 118 30 30 05/18/17 22:22 107 21 99 Mechanical Ventilator 30 05/18/17 22:12 105 20 99 Mechanical Ventilator 30 05/18/17 21:24 122 30 30 05/18/17 21:00 90/63 05/18/17 20:00 05/18/17 20:00 30 05/18/17 19:59 98.4 126 16 90/63 98 Mechanical Ventilator 30 05/18/17 19:48 126 Height (Feet): 5 Height (Inches): 7.00 Weight (Pounds): 126 HEENT: anicteric Respiratory/Chest: no respiratory distress Cardiovascular: regular rhythm Abdomen: no mass Skin: no lesions Microbiology Date/Time Source Procedure Growth Status 05/17/17 16:25 Blood Blood Culture - Preliminary NO GROWTH AFTER 24 HOURS Resulted 05/17/17 16:20 Blood Blood Culture - Preliminary NO GROWTH AFTER 24 HOURS Resulted Laboratory Tests Test 05/19/17 03:45 White Blood Count 20.5 K/UL (4.8-10.8) H Red Blood Count 3.79 M/UL (4.70-6.10) L Hemoglobin 10.6 G/DL (14.2-18.0) L Hematocrit 33.1 % (42.0-52.0) L Mean Corpuscular Volume 87 FL (80-99) Mean Corpuscular Hemoglobin 28.0 PG (27.0-31.0) Mean Corpuscular Hemoglobin Concent 32.1 G/DL (32.0-36.0) Red Cell Distribution Width 16.6 % (11.6-14.8) H Platelet Count 585 K/UL (150-450) H Mean Platelet Volume 5.9 FL (6.5-10.1) L Neutrophils (%) (Auto) % (45.0-75.0) Lymphocytes (%) (Auto) % (20.0-45.0) Monocytes (%) (Auto) % (1.0-10.0) Eosinophils (%) (Auto) % (0.0-3.0) Basophils (%) (Auto) % (0.0-2.0) Differential Total Cells Counted 100 Neutrophils % (Manual) 82 % (45-75) H Lymphocytes % (Manual) 11 % (20-45) L Monocytes % (Manual) 7 % (1-10) Eosinophils % (Manual) 0 % (0-3) Basophils % (Manual) 0 % (0-2) Band Neutrophils 0 % (0-8) Platelet Estimate Increased H Platelet Morphology Normal Anisocytosis 1+ Sodium Level 143 mEQ/L (135-145) Potassium Level 4.7 mEQ/L (3.4-4.9) Chloride Level 101 mEQ/L (98-107) Carbon Dioxide Level 30 mEQ/L (20-30) Anion Gap 12 (5-15) Blood Urea Nitrogen 38 mg/dL (7-23) H Creatinine 0.5 mg/dL (0.7-1.2) L Estimat Glomerular Filtration Rate > 60 mL/min (>60) Glucose Level 137 mg/dL (74-106) H Calcium Level 9.1 mg/dL (8.6-10.2) Current Medications Medications (Trade) Dose Ordered Sig/Tameka Route PRN Reason Start Time Stop Time Status Last Admin Dose Admin Acetaminophen 650 mg 650 mg Q4H PRN ORAL FEVER 05/10/17 18:15 06/09/17 18:14 05/16/17 17:26 Albuterol/ Ipratropium (DuoNeb 0.5-3(2.5)mg/3ml) 3 ml Q4H PRN HHN Shortness of Breath 05/16/17 15:00 05/21/17 14:59 Amiodarone HCl (Cordarone) 200 mg DAILY GT 05/11/17 09:00 06/10/17 08:59 05/19/17 09:02 Ascorbic Acid (Vitamin C) 500 mg DAILY GT 05/17/17 13:57 06/13/17 08:59 05/19/17 09:02 Carvedilol (Coreg) 3.125 mg Q12HR GT 05/10/17 21:00 06/09/17 20:59 05/17/17 21:19 Colistimethate Sodium (Colistin *inhalation use only*) 150 mg Q12HR@10,22 INH 05/14/17 13:00 05/28/17 12:59 05/19/17 10:28 Dextrose (Dextrose 50%) STAT PRN IV Hypoglycemia 05/10/17 18:15 06/09/17 18:14 Furosemide (Lasix) 60 mg DAILY GT 05/11/17 09:00 06/10/17 08:59 05/17/17 08:45 Levetiracetam (Keppra) 500 mg Q12HR GT 05/10/17 21:00 06/09/17 20:59 05/19/17 09:03 Lorazepam (Ativan 2mg/ml 1ml) 2 mg Q2H PRN IV For Anxiety 05/16/17 16:15 05/23/17 16:14 Meropenem/Sodium Chloride (Merrem/Sodium Chloride) 55 ml @ 110 mls/hr EVERY 8 HOURS IVPB 05/17/17 16:00 05/22/17 15:59 05/19/17 13:43 Morphine Sulfate (Morphine Sulfate) 4 mg Q4H PRN IVP Severe Pain (Pain Scale 7-10) 05/16/17 15:15 05/23/17 15:14 Ondansetron HCl (Zofran) 4 mg Q6H PRN IVP Nausea & Vomiting 05/10/17 18:15 06/09/17 18:14 Polyethylene Glycol (Miralax) 17 gm DAILYPRN PRN GT Constipation 05/17/17 13:57 06/09/17 18:14 Spironolactone 25 mg 25 mg DAILY GT 05/17/17 13:57 06/10/17 08:59 Tigecycline/ Dextrose (Tygacil/D5W) 110 ml @ 220 mls/hr EVERY 12 HOURS IVPB 05/14/17 23:00 05/28/17 22:59 05/19/17 09:02 MARCUS PA M.D. May 19, 2017 19:34
[2017-05-19 20:00] VITALS: BP 110/80
[2017-05-19] MEDS: Morphine Sulfate 4mg/ml Inj IVP PRN (21:06)
[2017-05-20] VITALS: BP 96/64
[2017-05-20 04:00] VITALS: BP 98/68
[2017-05-20] MEDS: Meropenem 500 MG in NS 55 ML IVPB SCH ×3 (05:44→22:40)
--- NOTE | 2017-05-20 05:44 | General Progress Note ---
Assessment/Plan Problem List: (1) EF of 30 (2) Anemia ICD Codes: D64.9 - Anemia, unspecified SNOMED: 018737270 Qualifiers: Qualified Codes: D64.9 - Anemia, unspecified (3) Transaminitis ICD Codes: R74.0 - Nonspecific elevation of levels of transaminase and lactic acid dehydrogenase [LDH] SNOMED: 835507885 (4) Leukocytosis ICD Codes: D72.829 - Elevated white blood cell count, unspecified SNOMED: 314181080, 115134188 (5) Acute on chronic respiratory failure ICD Codes: J96.20 - Acute and chronic respiratory failure, unspecified whether with hypoxia or hypercapnia SNOMED: 45986380, 17153482 (6) Feeding by G-tube ICD Codes: Z93.1 - Gastrostomy status SNOMED: 986153794, 042194365 Assessment/Plan occult blood stool >> negative x 2 stable H&H, transfuse prn GT replaced. GTFs per dietary, monitor residuals PPI for GI prophylaxis abx fu labs Subjective ROS Limited/Unobtainable: No Allergies: Coded Allergies: No Known Allergies (Unverified , 03/07/17) Objective Last 24 Hour Vital Signs Date Time Temp Pulse Resp B/P Pulse Ox O2 Delivery O2 Flow Rate FiO2 05/20/17 04:43 107 20 30 05/20/17 04:00 30 05/20/17 04:00 108 05/20/17 04:00 97.6 105 19 98/68 100 Mechanical Ventilator 05/20/17 03:09 104 19 30 05/20/17 01:24 106 21 30 05/20/17 00:00 30 05/20/17 00:00 95 05/20/17 00:00 97.5 100 19 96/64 100 Mechanical Ventilator 30 05/19/17 22:45 99 16 100 Mechanical Ventilator 30 05/19/17 22:44 99 18 100 Mechanical Ventilator 30 05/19/17 22:40 104 22 30 05/19/17 21:25 120 31 30 05/19/17 21:05 121 110/80 05/19/17 20:09 115 05/19/17 20:00 30 05/19/17 20:00 97.7 121 24 110/80 100 Mechanical Ventilator 30 05/19/17 19:18 112 25 30 05/19/17 16:53 112 24 30 05/19/17 16:16 113 05/19/17 16:00 108 05/19/17 16:00 30 05/19/17 16:00 97.3 117 24 99/69 99 Mechanical Ventilator 30 05/19/17 14:49 108 18 30 05/19/17 12:03 30 05/19/17 12:03 110 05/19/17 12:00 105 25 30 05/19/17 12:00 100.9 120 31 103/66 92 Mechanical Ventilator 05/19/17 10:38 105 25 100 Mechanical Ventilator 05/19/17 10:32 109 26 30 05/19/17 10:29 103 20 99 Mechanical Ventilator 05/19/17 09:00 111 94/68 05/19/17 08:52 108 26 30 05/19/17 08:00 97.2 111 26 94/68 98 Mechanical Ventilator 05/19/17 07:43 102 05/19/17 07:43 30 05/19/17 07:06 109 25 30 Intake and Output 05/19/17 05/20/17 19:00 07:00 Intake Total 1640 ml 1690 ml Output Total 850 ml Balance 790 ml 1690 ml Intake Free Water 500 ml 300 ml IV Total 165 ml 220 ml Tube Feeding 195 ml 1170 ml Other 780 ml Output Urine Total 850 ml # Bowel Movements 3 1 Laboratory Tests 05/20/17 03:40: White Blood Count [Pending], Red Blood Count [Pending], Hemoglobin [Pending], Hematocrit [Pending], Mean Corpuscular Volume [Pending], Mean Corpuscular Hemoglobin [Pending], Mean Corpuscular Hemoglobin Concent [Pending], Red Cell Distribution Width [Pending], Platelet Count [Pending], Mean Platelet Volume [ Pending], Neutrophils (%) (Auto) [Pending], Lymphocytes (%) (Auto) [Pending], Monocytes (%) (Auto) [Pending], Eosinophils (%) (Auto) [Pending], Basophils (%) (Auto) [Pending], Sodium Level [Pending], Potassium Level [Pending], Chloride Level [Pending], Carbon Dioxide Level [Pending], Blood Urea Nitrogen [Pending], Creatinine [Pending], Estimat Glomerular Filtration Rate [Pending], Glucose Level [Pending], Calcium Level [Pending], Total Bilirubin [Pending], Aspartate Amino Transf (AST/SGOT) [Pending], Alanine Aminotransferase (ALT/SGPT) [Pending] , Alkaline Phosphatase [Pending], Pro-B-Type Natriuretic Peptide [Pending], Total Protein [Pending], Albumin [Pending], Globulin [Pending] Height (Feet): 5 Height (Inches): 7.00 Weight (Pounds): 126 General Appearance: no apparent distress EENT: normal ENT inspection Neck: supple Cardiovascular: normal rate Respiratory/Chest: decreased breath sounds Abdomen: normal bowel sounds, non tender, soft Extremities: non-tender JESSICA JIN May 20, 2017 05:44
[2017-05-20 05:47] LABS: MEAN CORPUSCULAR HEMOGLOBIN 28.2 PG (27.0-31.0); MEAN CORPUSCULAR HGB CONC 31.9 G/DL (32.0-36.0); MEAN CORPUSCULAR VOLUME 88 FL (80-99); MEAN PLATELET VOLUME 5.7 FL (6.5-10.1); PLATELET COUNT 558 K/UL (150-450); RED BLOOD COUNT 3.67 M/UL (4.70-6.10)
[2017-05-20 06:08] LABS: ALANINE AMINOTRANSFERASE 38 U/L (3-41); ALBUMIN/GLOBULIN RATIO 0.4 (1.0-2.7); ANION GAP 7 (5-15); ASPARTATE AMINO TRANSFERASE 43 U/L (5-40); CARBON DIOXIDE 32 mEQ/L (20-30); CHLORIDE 107 mEQ/L (98-107); CREATININE 0.5 mg/dL (0.7-1.2); GLOMERULAR FILTRATION RATE > 60 mL/min (>60); HEMOLYSIS 3; POTASSIUM 4.5 mEQ/L (3.4-4.9); SODIUM 146 mEQ/L (135-145); TOTAL PROTEIN 7.7 g/dL (6.6-8.7)
[2017-05-20 08:00] VITALS: BP 94/63
[2017-05-20 08:17] LABS: ANISOCYTOSIS 1+; BAND NEUTROPHILS % (MANUAL) 0 % (0-8); BASOPHILS % (MANUAL) 0 % (0-2); EOSINOPHILS % (MANUAL) 0 % (0-3); HYPOCHROMASIA 1+; LYMPHOCYTES % (MANUAL) 8 % (20-45); NEUTROPHILS % (MANUAL) 83 % (45-75); PLATELET ESTIMATE INCREASED; PLATELET MORPHOLOGY NORMAL; TOTAL CELLS COUNTED 100
[2017-05-20] MEDS: Spironolactone 25mg tab GT SCH (09:00)
--- NOTE | 2017-05-20 09:02 | Pulmonology Progress Note ---
Assessment/Plan Problems: (1) Acute on chronic respiratory failure (2) Anemia (3) Right pulmonary infiltrate on CXR (4) Chronic respiratory acidosis (5) Feeding by G-tube (6) EF of 30 Assessment/Plan: persistent fever with increasing wbc, lowry culture continue Tygacil, Colistin & Meropenem Respiratory: monitor respiratory rate, adjust FIO2, CXR Cardiac: continue to monitor HR/BP Renal: F/U I&O Infectious Disease: check cultures, continue antibiotics Gastrointestinal: continue feedings/current rate, hold feedings Endocrine: check TSH, check HgA1C, continue sliding scale insulin Hematologic: monitor H/H, transfuse if hgb<8.5 Neurologic: PRN Ativan, PRN Morphine, keep patient comfortable Affect: PRN ativan Notes Reviewed: tube man, renal Discussed with: nurses, consultants, shoe caser Subjective ROS Limited/Unobtainable: Yes Constitutional: Reports: no symptoms HEENT: Repors: no symptoms Allergies: Coded Allergies: No Known Allergies (Unverified , 03/07/17) Objective Last 24 Hour Vital Signs Date Time Temp Pulse Resp B/P Pulse Ox O2 Delivery O2 Flow Rate FiO2 05/20/17 08:00 30 05/20/17 08:00 97.9 111 20 94/63 100 Mechanical Ventilator 05/20/17 07:03 108 20 40 05/20/17 04:43 107 20 30 05/20/17 04:00 30 05/20/17 04:00 108 05/20/17 04:00 97.6 105 19 98/68 100 Mechanical Ventilator 05/20/17 03:09 104 19 30 05/20/17 01:24 106 21 30 05/20/17 00:00 30 05/20/17 00:00 95 05/20/17 00:00 97.5 100 19 96/64 100 Mechanical Ventilator 05/19/17 22:45 99 16 100 Mechanical Ventilator 05/19/17 22:44 99 18 100 Mechanical Ventilator 05/19/17 22:40 104 22 30 05/19/17 21:25 120 31 30 05/19/17 21:05 121 110/80 05/19/17 20:09 115 05/19/17 20:00 30 05/19/17 20:00 97.7 121 24 110/80 100 Mechanical Ventilator 05/19/17 19:18 112 25 30 05/19/17 16:53 112 24 30 05/19/17 16:16 113 05/19/17 16:00 108 05/19/17 16:00 30 05/19/17 16:00 97.3 117 24 99/69 99 Mechanical Ventilator 30 05/19/17 14:49 108 18 30 05/19/17 12:03 30 05/19/17 12:03 110 05/19/17 12:00 105 25 30 05/19/17 12:00 100.9 120 31 103/66 92 Mechanical Ventilator 30 05/19/17 10:38 105 25 100 Mechanical Ventilator 30 05/19/17 10:32 109 26 30 05/19/17 10:29 103 20 99 Mechanical Ventilator 30 Intake and Output 05/19/17 05/20/17 19:00 07:00 Intake Total 1640 ml 1820 ml Output Total 850 ml 550 ml Balance 790 ml 1270 ml Intake Free Water 500 ml 300 ml IV Total 165 ml 220 ml Tube Feeding 195 ml 1300 ml Other 780 ml Output Urine Total 850 ml 550 ml # Bowel Movements 3 2 General Appearance: cachetic HEENT: normocephalic, atraumatic Respiratory/Chest: chest wall non-tender, decreased breath sounds, rhonchi Cardiovascular: normal peripheral pulses, normal rate Abdomen: soft, non tender Genitourinary: normal external genitalia Extremities: no clubbing Skin: no rash Microbiology Date/Time Source Procedure Growth Status 05/17/17 16:25 Blood Blood Culture - Preliminary NO GROWTH AFTER 48 HOURS Resulted 05/17/17 16:20 Blood Blood Culture - Preliminary NO GROWTH AFTER 48 HOURS Resulted Laboratory Tests 05/20/17 03:40: White Blood Count 22.0H, Red Blood Count 3.67L, Hemoglobin 10.4L, Hematocrit 32.5L, Mean Corpuscular Volume 88, Mean Corpuscular Hemoglobin 28.2, Mean Corpuscular Hemoglobin Concent 31.9L, Red Cell Distribution Width 17.0H, Platelet Count 558H, Mean Platelet Volume 5.7L, Neutrophils (%) (Auto) , Lymphocytes (%) (Auto) , Monocytes (%) (Auto) , Eosinophils (%) (Auto) , Basophils (%) (Auto) , Differential Total Cells Counted 100, Neutrophils % ( Manual) 83H, Lymphocytes % (Manual) 8L, Monocytes % (Manual) 9, Eosinophils % ( Manual) 0, Basophils % (Manual) 0, Band Neutrophils 0, Platelet Estimate IncreasedH, Platelet Morphology Normal, Hypochromasia 1+, Anisocytosis 1+, Sodium Level 146H, Potassium Level 4.5, Chloride Level 107, Carbon Dioxide Level 32H, Anion Gap 7, Blood Urea Nitrogen 37H, Creatinine 0.5L, Estimat Glomerular Filtration Rate > 60, Glucose Level 122H, Calcium Level 9.0, Total Bilirubin 0.3, Aspartate Amino Transf (AST/SGOT) 43H, Alanine Aminotransferase ( ALT/SGPT) 38, Alkaline Phosphatase 176H, Pro-B-Type Natriuretic Peptide 2379H, Total Protein 7.7, Albumin 2.2L, Globulin 5.5, Albumin/Globulin Ratio 0.4L Current Medications Medications (Trade) Dose Ordered Sig/Tameka Route PRN Reason Start Time Stop Time Status Last Admin Dose Admin Acetaminophen 650 mg 650 mg Q4H PRN ORAL FEVER 05/10/17 18:15 06/09/17 18:14 05/16/17 17:26 Albuterol/ Ipratropium (DuoNeb 0.5-3(2.5)mg/3ml) 3 ml Q4H PRN HHN Shortness of Breath 05/16/17 15:00 05/21/17 14:59 Amiodarone HCl (Cordarone) 200 mg DAILY GT 05/11/17 09:00 06/10/17 08:59 05/19/17 09:02 Ascorbic Acid (Vitamin C) 500 mg DAILY GT 05/17/17 13:57 06/13/17 08:59 05/19/17 09:02 Carvedilol (Coreg) 3.125 mg Q12HR GT 05/10/17 21:00 06/09/17 20:59 05/19/17 21:05 Colistimethate Sodium (Colistin *inhalation use only*) 150 mg Q12HR@10,22 INH 05/14/17 13:00 05/28/17 12:59 05/19/17 22:40 Dextrose (Dextrose 50%) STAT PRN IV Hypoglycemia 05/10/17 18:15 06/09/17 18:14 Furosemide (Lasix) 60 mg DAILY GT 05/11/17 09:00 06/10/17 08:59 05/17/17 08:45 Levetiracetam (Keppra) 500 mg Q12HR GT 05/10/17 21:00 06/09/17 20:59 05/19/17 21:05 Lorazepam (Ativan 2mg/ml 1ml) 2 mg Q2H PRN IV For Anxiety 05/16/17 16:15 05/23/17 16:14 Meropenem/Sodium Chloride (Merrem/Sodium Chloride) 55 ml @ 110 mls/hr EVERY 8 HOURS IVPB 05/17/17 16:00 05/22/17 15:59 05/20/17 05:44 Morphine Sulfate (Morphine Sulfate) 4 mg Q4H PRN IVP Severe Pain (Pain Scale 7-10) 05/16/17 15:15 05/23/17 15:14 05/19/17 21:06 Ondansetron HCl (Zofran) 4 mg Q6H PRN IVP Nausea & Vomiting 05/10/17 18:15 06/09/17 18:14 Polyethylene Glycol (Miralax) 17 gm DAILYPRN PRN GT Constipation 05/17/17 13:57 06/09/17 18:14 Spironolactone 25 mg 25 mg DAILY GT 05/17/17 13:57 06/10/17 08:59 Tigecycline/ Dextrose (Tygacil/D5W) 110 ml @ 220 mls/hr EVERY 12 HOURS IVPB 05/14/17 23:00 05/28/17 22:59 05/19/17 21:05 ODETTE SMILEY May 20, 2017 09:02
[2017-05-20] MEDS: Colistin for inhalation INH SCH ×2 (09:09→22:02)
[2017-05-20] MEDS: levETIRAcetam 500mg/5ml Liquid GT SCH ×2 (09:40→21:20)
[2017-05-20] MEDS: Ascorbic Acid 500mg tab GT SCH (09:41)
[2017-05-20] MEDS: Amiodarone 200mg tab GT SCH (09:41)
[2017-05-20] MEDS: Tigecycline 50 MG in D5W 110 ML IVPB SCH ×2 (09:42→21:20)
[2017-05-20 12:00] VITALS: BP 96/44
--- NOTE | 2017-05-20 12:04 | Infectious Diseases Prog Note ---
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 - SCx : MDR - ACB , KPC - CXR: Worsening atelectasis versus pneumonia right lung base - h/o Provid a+ XDR PSA and Providencia // Stage IV sacral decubitus, not grossly infected - surveillance WCx KPC and ACB, strep, CONS ( colonizer ) - h/o polymicrobial MDR colonization // HCV Ab+ - Abdominal ultrasound of liver : unremarkable // Probable sepsis, SP // Leukocytosis: persistent CT of C/A/P : No evidence of abscess , Pulmonary bibasal parenchymal consolidation // Low grade fever x1 , SP Severe anemia SP PRBCs Sinus tachycardia Chronic VDRF SP trach, PEG h/o cardiac arrest, anoxic encephalopathy Cardiomyopathy SP defibrillator placement Paroxysmal atrial fibrillation Cachexia / severe protein-calorie malnutrition [place] resident NKDA Full Code PLAN: Tygacil and Colistin d# , add Merrem d# ( 05/15 SP IV vancomycin, Zosyn d# 5 ) ( SP Merrem and Colistin INH d# ) ( 03/13 SP vancomycin and Zosyn d# 5 ) f/u cultures,( Bl ) Monitor CBC, temperatures Monitor CMP Monitor CXR vent support, trach care, aspiration precautions wound care transfuse prn Subjective Constitutional: Denies: anorexia, chills, drenching sweats, fatigue, fever, no symptoms, other Allergies: Coded Allergies: No Known Allergies (Unverified , 03/07/17) Objective Vital Signs Last 24 Hour Vital Signs Date Time Temp Pulse Resp B/P Pulse Ox O2 Delivery O2 Flow Rate FiO2 05/20/17 10:50 95 16 40 05/20/17 09:41 110 94/63 05/20/17 09:15 110 21 100 Mechanical Ventilator 40 05/20/17 09:13 40 05/20/17 09:11 110 19 100 Mechanical Ventilator 40 05/20/17 09:01 109 20 40 05/20/17 08:00 109 05/20/17 08:00 30 05/20/17 08:00 97.9 111 20 94/63 100 Mechanical Ventilator 30 05/20/17 07:03 108 20 40 05/20/17 04:43 107 20 30 05/20/17 04:00 30 05/20/17 04:00 108 05/20/17 04:00 97.6 105 19 98/68 100 Mechanical Ventilator 05/20/17 03:09 104 19 30 05/20/17 01:24 106 21 30 05/20/17 00:00 30 05/20/17 00:00 95 05/20/17 00:00 97.5 100 19 96/64 100 Mechanical Ventilator 05/19/17 22:45 99 16 100 Mechanical Ventilator 05/19/17 22:44 99 18 100 Mechanical Ventilator 05/19/17 22:40 104 22 30 05/19/17 21:25 120 31 30 05/19/17 21:05 121 110/80 05/19/17 20:09 115 05/19/17 20:00 30 05/19/17 20:00 97.7 121 24 110/80 100 Mechanical Ventilator 05/19/17 19:18 112 25 30 05/19/17 16:53 112 24 30 05/19/17 16:16 113 05/19/17 16:00 108 05/19/17 16:00 30 05/19/17 16:00 97.3 117 24 99/69 99 Mechanical Ventilator 05/19/17 14:49 108 18 30 05/19/17 12:03 30 05/19/17 12:03 110 05/19/17 12:00 105 25 30 05/19/17 12:00 100.9 120 31 103/66 92 Mechanical Ventilator 30 Height (Feet): 5 Height (Inches): 7.00 Weight (Pounds): 126 HEENT: anicteric Respiratory/Chest: lungs clear Cardiovascular: regular rhythm Abdomen: no organomegaly Microbiology Date/Time Source Procedure Growth Status 05/17/17 16:25 Blood Blood Culture - Preliminary NO GROWTH AFTER 48 HOURS Resulted 05/17/17 16:20 Blood Blood Culture - Preliminary NO GROWTH AFTER 48 HOURS Resulted Laboratory Tests Test 05/20/17 03:40 White Blood Count 22.0 K/UL (4.8-10.8) H Red Blood Count 3.67 M/UL (4.70-6.10) L Hemoglobin 10.4 G/DL (14.2-18.0) L Hematocrit 32.5 % (42.0-52.0) L Mean Corpuscular Volume 88 FL (80-99) Mean Corpuscular Hemoglobin 28.2 PG (27.0-31.0) Mean Corpuscular Hemoglobin Concent 31.9 G/DL (32.0-36.0) L Red Cell Distribution Width 17.0 % (11.6-14.8) H Platelet Count 558 K/UL (150-450) H Mean Platelet Volume 5.7 FL (6.5-10.1) L Neutrophils (%) (Auto) % (45.0-75.0) Lymphocytes (%) (Auto) % (20.0-45.0) Monocytes (%) (Auto) % (1.0-10.0) Eosinophils (%) (Auto) % (0.0-3.0) Basophils (%) (Auto) % (0.0-2.0) Differential Total Cells Counted 100 Neutrophils % (Manual) 83 % (45-75) H Lymphocytes % (Manual) 8 % (20-45) L Monocytes % (Manual) 9 % (1-10) Eosinophils % (Manual) 0 % (0-3) Basophils % (Manual) 0 % (0-2) Band Neutrophils 0 % (0-8) Platelet Estimate Increased H Platelet Morphology Normal Hypochromasia 1+ Anisocytosis 1+ Sodium Level 146 mEQ/L (135-145) H Potassium Level 4.5 mEQ/L (3.4-4.9) Chloride Level 107 mEQ/L (98-107) Carbon Dioxide Level 32 mEQ/L (20-30) H Anion Gap 7 (5-15) Blood Urea Nitrogen 37 mg/dL (7-23) H Creatinine 0.5 mg/dL (0.7-1.2) L Estimat Glomerular Filtration Rate > 60 mL/min (>60) Glucose Level 122 mg/dL (74-106) H Calcium Level 9.0 mg/dL (8.6-10.2) Total Bilirubin 0.3 mg/dL (0.0-1.2) Aspartate Amino Transf (AST/SGOT) 43 U/L (5-40) H Alanine Aminotransferase (ALT/SGPT) 38 U/L (3-41) Alkaline Phosphatase 176 U/L (40-129) H Pro-B-Type Natriuretic Peptide 2379 pg/mL (0-125) H Total Protein 7.7 g/dL (6.6-8.7) Albumin 2.2 g/dL (3.5-5.2) L Globulin 5.5 g/dL Albumin/Globulin Ratio 0.4 (1.0-2.7) L Current Medications Medications (Trade) Dose Ordered Sig/Tameka Route PRN Reason Start Time Stop Time Status Last Admin Dose Admin Acetaminophen 650 mg 650 mg Q4H PRN ORAL FEVER 05/10/17 18:15 06/09/17 18:14 05/16/17 17:26 Albuterol/ Ipratropium (DuoNeb 0.5-3(2.5)mg/3ml) 3 ml Q4H PRN HHN Shortness of Breath 05/16/17 15:00 05/21/17 14:59 Amiodarone HCl (Cordarone) 200 mg DAILY GT 05/11/17 09:00 06/10/17 08:59 05/20/17 09:41 Ascorbic Acid (Vitamin C) 500 mg DAILY GT 05/17/17 13:57 06/13/17 08:59 05/20/17 09:41 Carvedilol (Coreg) 3.125 mg Q12HR GT 05/10/17 21:00 06/09/17 20:59 05/20/17 09:41 Colistimethate Sodium (Colistin *inhalation use only*) 150 mg Q12HR@10,22 INH 05/14/17 13:00 05/28/17 12:59 05/20/17 09:09 Dextrose (Dextrose 50%) STAT PRN IV Hypoglycemia 05/10/17 18:15 06/09/17 18:14 Furosemide (Lasix) 60 mg DAILY GT 05/11/17 09:00 06/10/17 08:59 05/17/17 08:45 Levetiracetam (Keppra) 500 mg Q12HR GT 05/10/17 21:00 06/09/17 20:59 05/20/17 09:40 Lorazepam (Ativan 2mg/ml 1ml) 2 mg Q2H PRN IV For Anxiety 05/16/17 16:15 05/23/17 16:14 Meropenem/Sodium Chloride (Merrem/Sodium Chloride) 55 ml @ 110 mls/hr EVERY 8 HOURS IVPB 05/17/17 16:00 05/22/17 15:59 05/20/17 05:44 Morphine Sulfate (Morphine Sulfate) 4 mg Q4H PRN IVP Severe Pain (Pain Scale 7-10) 05/16/17 15:15 05/23/17 15:14 05/19/17 21:06 Ondansetron HCl (Zofran) 4 mg Q6H PRN IVP Nausea & Vomiting 05/10/17 18:15 06/09/17 18:14 Polyethylene Glycol (Miralax) 17 gm DAILYPRN PRN GT Constipation 05/17/17 13:57 06/09/17 18:14 Spironolactone 25 mg 25 mg DAILY GT 05/17/17 13:57 06/10/17 08:59 Tigecycline/ Dextrose (Tygacil/D5W) 110 ml @ 220 mls/hr EVERY 12 HOURS IVPB 05/14/17 23:00 05/28/17 22:59 05/20/17 09:42 MARCUS PA M.D. May 20, 2017 12:04
[2017-05-20 16:00] VITALS: BP 98/52
[2017-05-20 20:00] VITALS: BP 98/67
[2017-05-21] VITALS (7 sets, daily range): BP systolic 99–113; BP diastolic 67–78
[2017-05-21] MEDS: Morphine Sulfate 4mg/ml Inj IVP PRN ×2 (03:32→20:01)
[2017-05-21 05:32] LABS: MEAN CORPUSCULAR HEMOGLOBIN 27.5 PG (27.0-31.0); MEAN CORPUSCULAR HGB CONC 30.7 G/DL (32.0-36.0); MEAN CORPUSCULAR VOLUME 90 FL (80-99); MEAN PLATELET VOLUME 6.4 FL (6.5-10.1); PLATELET COUNT 561 K/UL (150-450); RED BLOOD COUNT 3.64 M/UL (4.70-6.10); RED CELL DISTRIBUTION WIDTH 17.3 % (11.6-14.8); WHITE BLOOD COUNT 19.6 K/UL (4.8-10.8)
[2017-05-21] MEDS: Meropenem 500 MG in NS 55 ML IVPB SCH ×3 (05:39→22:14)
[2017-05-21 06:06] LABS: ALANINE AMINOTRANSFERASE 35 U/L (3-41); ALBUMIN/GLOBULIN RATIO 0.3 (1.0-2.7); ANION GAP 8 (5-15); ASPARTATE AMINO TRANSFERASE 40 U/L (5-40); CALCIUM 8.9 mg/dL (8.6-10.2); CARBON DIOXIDE 31 mEQ/L (20-30); CHLORIDE 111 mEQ/L (98-107); CREATININE 0.5 mg/dL (0.7-1.2); GLOMERULAR FILTRATION RATE > 60 mL/min (>60); HEMOLYSIS 3; POTASSIUM 4.2 mEQ/L (3.4-4.9); SODIUM 150 mEQ/L (135-145); TOTAL PROTEIN 8.6 g/dL (6.6-8.7)
[2017-05-21] MEDS: Colistin for inhalation INH SCH ×2 (07:15→21:12)
[2017-05-21 08:29] LABS: BAND NEUTROPHILS % (MANUAL) 0 % (0-8); BASOPHILS % (MANUAL) 0 % (0-2); EOSINOPHILS % (MANUAL) 1 % (0-3); LYMPHOCYTES % (MANUAL) 5 % (20-45); NEUTROPHILS % (MANUAL) 87 % (45-75); PLATELET ESTIMATE INCREASED; PLATELET MORPHOLOGY NORMAL; TOTAL CELLS COUNTED 100
[2017-05-21 08:30] LABS: ANISOCYTOSIS 1+
[2017-05-21 08:31] LABS: HYPOCHROMASIA 1+
[2017-05-21] MEDS: Ascorbic Acid 500mg tab GT SCH (09:15)
[2017-05-21] MEDS: Spironolactone 25mg tab GT SCH (09:16)
[2017-05-21] MEDS: Amiodarone 200mg tab GT SCH (09:16)
[2017-05-21] MEDS: levETIRAcetam 500mg/5ml Liquid GT SCH ×2 (09:17→20:22)
[2017-05-21] MEDS: Tigecycline 50 MG in D5W 110 ML IVPB SCH ×2 (09:17→20:22)
--- NOTE | 2017-05-21 11:55 | Pulmonology Progress Note ---
Assessment/Plan Problems: (1) Acute on chronic respiratory failure (2) Anemia (3) Right pulmonary infiltrate on CXR (4) Chronic respiratory acidosis (5) Feeding by G-tube (6) EF of 30 Assessment/Plan: persistent fever with increasing wbc, lowry culture continue Tygacil, Colistin & Meropenem Respiratory: monitor respiratory rate, adjust FIO2 Cardiac: continue to monitor HR/BP Renal: F/U I&O, keep IV fluid Infectious Disease: check cultures, continue antibiotics, other - persistent leukocytosis, afebrile for > 24 hours. Gastrointestinal: hold feedings Endocrine: check TSH, check HgA1C Hematologic: monitor H/H Neurologic: PRN Morphine Prophylaxis: Protonix, Heparin Subjective ROS Limited/Unobtainable: No Constitutional: Reports: no symptoms HEENT: Repors: no symptoms Respiratory: Reports: no symptoms Allergies: Coded Allergies: No Known Allergies (Unverified , 03/07/17) Objective Last 24 Hour Vital Signs Date Time Temp Pulse Resp B/P Pulse Ox O2 Delivery O2 Flow Rate FiO2 05/21/17 11:07 121 16 40 05/21/17 09:20 108 16 40 05/21/17 09:00 105 97/69 05/21/17 08:00 40 05/21/17 08:00 98.9 108 16 102/68 100 Mechanical Ventilator 40 05/21/17 08:00 105 05/21/17 07:21 103 16 100 Mechanical Ventilator 40 05/21/17 07:18 106 16 40 05/21/17 07:10 106 16 100 Mechanical Ventilator 40 05/21/17 05:06 112 17 40 05/21/17 04:00 40 05/21/17 04:00 97.7 105 16 109/73 100 Mechanical Ventilator 05/21/17 03:32 108 05/21/17 03:14 108 25 40 05/21/17 01:04 110 29 40 05/21/17 00:00 40 05/21/17 00:00 98.4 103 22 100/67 100 Mechanical Ventilator 40 05/20/17 23:39 100 05/20/17 23:09 109 26 40 05/20/17 22:13 101 16 100 Mechanical Ventilator 40 05/20/17 21:55 105 20 100 Mechanical Ventilator 40 05/20/17 21:02 101 20 40 05/20/17 21:00 102 98/67 05/20/17 20:00 98.1 102 22 98/67 100 Mechanical Ventilator 40 05/20/17 20:00 40 05/20/17 19:56 101 05/20/17 18:48 104 21 40 05/20/17 16:55 100 23 40 05/20/17 16:00 101 05/20/17 16:00 98.2 106 20 98/52 100 Mechanical Ventilator 40 05/20/17 16:00 40 05/20/17 14:53 100 21 40 05/20/17 13:09 95 21 40 05/20/17 12:00 101 05/20/17 12:00 98.9 103 20 96/44 100 Mechanical Ventilator 40 05/20/17 12:00 40 Intake and Output 05/20/17 05/21/17 19:00 07:00 Intake Total 1280 ml 1210 ml Output Total 525 ml 650 ml Balance 755 ml 560 ml Intake Free Water 400 ml 100 ml IV Total 165 ml 330 ml Tube Feeding 715 ml 780 ml Output Urine Total 525 ml 650 ml # Bowel Movements 2 3 General Appearance: WD/WN HEENT: normocephalic, atraumatic Respiratory/Chest: chest wall non-tender, lungs clear Cardiovascular: normal peripheral pulses, normal rate Abdomen: normal bowel sounds, soft, non tender Extremities: no clubbing 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: abnormal gait Laboratory Tests 05/21/17 03:40: White Blood Count 19.6H, Red Blood Count 3.64L, Hemoglobin 10.0L, Hematocrit 32.6L, Mean Corpuscular Volume 90, Mean Corpuscular Hemoglobin 27.5, Mean Corpuscular Hemoglobin Concent 30.7L, Red Cell Distribution Width 17.3H, Platelet Count 561H, Mean Platelet Volume 6.4L, Neutrophils (%) (Auto) , Lymphocytes (%) (Auto) , Monocytes (%) (Auto) , Eosinophils (%) (Auto) , Basophils (%) (Auto) , Differential Total Cells Counted 100, Neutrophils % ( Manual) 87H, Lymphocytes % (Manual) 5L, Monocytes % (Manual) 7, Eosinophils % ( Manual) 1, Basophils % (Manual) 0, Band Neutrophils 0, Platelet Estimate IncreasedH, Platelet Morphology Normal, Hypochromasia 1+, Anisocytosis 1+, Sodium Level 150H, Potassium Level 4.2, Chloride Level 111H, Carbon Dioxide Level 31H, Anion Gap 8, Blood Urea Nitrogen 40H, Creatinine 0.5L, Estimat Glomerular Filtration Rate > 60, Glucose Level 103, Calcium Level 8.9, Phosphorus Level 3.0, Magnesium Level 2.0, Total Bilirubin 0.3, Aspartate Amino Transf (AST/SGOT) 40, Alanine Aminotransferase (ALT/SGPT) 35, Alkaline Phosphatase 166H, Total Protein 8.6, Albumin 2.2L, Globulin 6.4, Albumin/ Globulin Ratio 0.3L Current Medications Medications (Trade) Dose Ordered Sig/Tameka Route PRN Reason Start Time Stop Time Status Last Admin Dose Admin Acetaminophen 650 mg 650 mg Q4H PRN ORAL FEVER 05/10/17 18:15 06/09/17 18:14 05/16/17 17:26 Albuterol/ Ipratropium (DuoNeb 0.5-3(2.5)mg/3ml) 3 ml Q4H PRN HHN Shortness of Breath 05/16/17 15:00 05/21/17 14:59 Amiodarone HCl (Cordarone) 200 mg DAILY GT 05/11/17 09:00 06/10/17 08:59 05/21/17 09:16 Ascorbic Acid (Vitamin C) 500 mg DAILY GT 05/17/17 13:57 06/13/17 08:59 05/21/17 09:15 Carvedilol (Coreg) 3.125 mg Q12HR GT 05/10/17 21:00 06/09/17 20:59 05/20/17 09:41 Colistimethate Sodium (Colistin *inhalation use only*) 150 mg Q12HR@10,22 INH 05/14/17 13:00 05/28/17 12:59 05/21/17 07:15 Dextrose (Dextrose 50%) STAT PRN IV Hypoglycemia 05/10/17 18:15 06/09/17 18:14 Furosemide (Lasix) 60 mg DAILY GT 05/11/17 09:00 06/10/17 08:59 05/21/17 09:17 Heparin Sodium (Porcine) (Heparin 5000 units/ml) 5,000 units EVERY 12 HOURS SUBQ 05/21/17 21:00 06/20/17 20:59 Levetiracetam (Keppra) 500 mg Q12HR GT 05/10/17 21:00 06/09/17 20:59 05/21/17 09:17 Lorazepam (Ativan 2mg/ml 1ml) 2 mg Q2H PRN IV For Anxiety 05/16/17 16:15 05/23/17 16:14 Meropenem/Sodium Chloride (Merrem/Sodium Chloride) 55 ml @ 110 mls/hr EVERY 8 HOURS IVPB 05/17/17 16:00 05/22/17 15:59 05/21/17 05:39 Morphine Sulfate (Morphine Sulfate) 4 mg Q4H PRN IVP Severe Pain (Pain Scale 7-10) 05/16/17 15:15 05/23/17 15:14 05/21/17 03:32 Ondansetron HCl (Zofran) 4 mg Q6H PRN IVP Nausea & Vomiting 05/10/17 18:15 06/09/17 18:14 Polyethylene Glycol (Miralax) 17 gm DAILYPRN PRN GT Constipation 05/17/17 13:57 06/09/17 18:14 Spironolactone 25 mg 25 mg DAILY GT 05/17/17 13:57 06/10/17 08:59 05/21/17 09:16 Tigecycline/ Dextrose (Tygacil/D5W) 110 ml @ 220 mls/hr EVERY 12 HOURS IVPB 05/14/17 23:00 05/28/17 22:59 05/21/17 09:17 ODETTE SMILEY May 21, 2017 11:55
--- NOTE | 2017-05-21 14:23 | GI Progress Note ---
Assessment/Plan Problems: (1) Anemia ICD Codes: D64.9 - Anemia, unspecified SNOMED: 289911499 Qualifiers: Qualified Codes: D64.9 - Anemia, unspecified (2) EF of 30 (3) Feeding by G-tube ICD Codes: Z93.1 - Gastrostomy status SNOMED: 527712655, 581303657 (4) Transaminitis ICD Codes: R74.0 - Nonspecific elevation of levels of transaminase and lactic acid dehydrogenase [LDH] SNOMED: 921578675 (5) Leukocytosis ICD Codes: D72.829 - Elevated white blood cell count, unspecified SNOMED: 875391198, 624731494 Status: stable, unchanged Status Narrative Discussed with Dr. Alex. Assessment/Plan occult blood stool >> negative x 2 stable H&H, transfuse prn GT replaced. GTFs per dietary, monitor residuals PPI for GI prophylaxis abx fu labs Subjective Subjective limited Objective Last 24 Hour Vital Signs Date Time Temp Pulse Resp B/P Pulse Ox O2 Delivery O2 Flow Rate FiO2 05/21/17 13:32 99.4 05/21/17 13:21 117 22 40 05/21/17 12:00 122 05/21/17 12:00 40 05/21/17 12:00 100.1 126 23 113/76 100 Mechanical Ventilator 100 05/21/17 11:07 121 16 40 05/21/17 09:20 108 16 40 05/21/17 09:00 105 97/69 05/21/17 08:00 40 05/21/17 08:00 98.9 108 16 102/68 100 Mechanical Ventilator 40 05/21/17 08:00 105 05/21/17 07:21 103 16 100 Mechanical Ventilator 40 05/21/17 07:18 106 16 40 05/21/17 07:10 106 16 100 Mechanical Ventilator 40 05/21/17 05:06 112 17 40 05/21/17 04:00 40 05/21/17 04:00 97.7 105 16 109/73 100 Mechanical Ventilator 40 05/21/17 03:32 108 05/21/17 03:14 108 25 40 05/21/17 01:04 110 29 40 05/21/17 00:00 40 05/21/17 00:00 98.4 103 22 100/67 100 Mechanical Ventilator 40 05/20/17 23:39 100 05/20/17 23:09 109 26 40 05/20/17 22:13 101 16 100 Mechanical Ventilator 40 05/20/17 21:55 105 20 100 Mechanical Ventilator 40 05/20/17 21:02 101 20 40 05/20/17 21:00 102 98/67 05/20/17 20:00 98.1 102 22 98/67 100 Mechanical Ventilator 40 05/20/17 20:00 40 05/20/17 19:56 101 05/20/17 18:48 104 21 40 05/20/17 16:55 100 23 40 05/20/17 16:00 101 05/20/17 16:00 98.2 106 20 98/52 100 Mechanical Ventilator 40 05/20/17 16:00 40 05/20/17 14:53 100 21 40 Intake and Output 05/20/17 05/21/17 19:00 07:00 Intake Total 1280 ml 1210 ml Output Total 525 ml 650 ml Balance 755 ml 560 ml Intake Free Water 400 ml 100 ml IV Total 165 ml 330 ml Tube Feeding 715 ml 780 ml Output Urine Total 525 ml 650 ml # Bowel Movements 2 3 Laboratory Tests Test 05/21/17 03:40 White Blood Count 19.6 K/UL (4.8-10.8) H Red Blood Count 3.64 M/UL (4.70-6.10) L Hemoglobin 10.0 G/DL (14.2-18.0) L Hematocrit 32.6 % (42.0-52.0) L Mean Corpuscular Volume 90 FL (80-99) Mean Corpuscular Hemoglobin 27.5 PG (27.0-31.0) Mean Corpuscular Hemoglobin Concent 30.7 G/DL (32.0-36.0) L Red Cell Distribution Width 17.3 % (11.6-14.8) H Platelet Count 561 K/UL (150-450) H Mean Platelet Volume 6.4 FL (6.5-10.1) L Neutrophils (%) (Auto) % (45.0-75.0) Lymphocytes (%) (Auto) % (20.0-45.0) Monocytes (%) (Auto) % (1.0-10.0) Eosinophils (%) (Auto) % (0.0-3.0) Basophils (%) (Auto) % (0.0-2.0) Differential Total Cells Counted 100 Neutrophils % (Manual) 87 % (45-75) H Lymphocytes % (Manual) 5 % (20-45) L Monocytes % (Manual) 7 % (1-10) Eosinophils % (Manual) 1 % (0-3) Basophils % (Manual) 0 % (0-2) Band Neutrophils 0 % (0-8) Platelet Estimate Increased H Platelet Morphology Normal Hypochromasia 1+ Anisocytosis 1+ Sodium Level 150 mEQ/L (135-145) H Potassium Level 4.2 mEQ/L (3.4-4.9) Chloride Level 111 mEQ/L (98-107) H Carbon Dioxide Level 31 mEQ/L (20-30) H Anion Gap 8 (5-15) Blood Urea Nitrogen 40 mg/dL (7-23) H Creatinine 0.5 mg/dL (0.7-1.2) L Estimat Glomerular Filtration Rate > 60 mL/min (>60) Glucose Level 103 mg/dL (74-106) Calcium Level 8.9 mg/dL (8.6-10.2) Phosphorus Level 3.0 mg/dL (2.5-4.8) Magnesium Level 2.0 mg/dL (1.7-2.5) Total Bilirubin 0.3 mg/dL (0.0-1.2) Aspartate Amino Transf (AST/SGOT) 40 U/L (5-40) Alanine Aminotransferase (ALT/SGPT) 35 U/L (3-41) Alkaline Phosphatase 166 U/L (40-129) H Total Protein 8.6 g/dL (6.6-8.7) Albumin 2.2 g/dL (3.5-5.2) L Globulin 6.4 g/dL Albumin/Globulin Ratio 0.3 (1.0-2.7) L Height (Feet): 5 Height (Inches): 7.00 Weight (Pounds): 126 General Appearance: no apparent distress Cardiovascular: normal rate Respiratory/Chest: other - mech vent Abdominal Exam: site - c/d/i Lani Last N.PBeto May 21, 2017 14:23
--- NOTE | 2017-05-21 16:35 | Wound Care Consultation ---
Wound Assessment Wound Assessment #1: Wound Number: #1 Wound Present on Admission: Yes New Wound: No Status Change of Wound: No Wound Location Body Site Modif: right Wound Location Body Site: knee Wound Type: pressure ulcer Francis Test: Does not Francis Pressure Ulcer Stage: II - resolved. Wound Length: 2.0 Wound Width: 1.0 Percent of Wound [place]/Red: 100 Wound Drainage Amount: None Wound Drainage Odor: None/Absent Tissue Surrounding Wound: Intact Wound General Appearance: Asymptomatic, Open to air, Clean/Dry Wound Assessment #2: Wound Number: #2 Wound Present on Admission: Yes New Wound: No Status Change of Wound: No Wound Location Body Site Modif: right Wound Location Body Site: elbow Wound Type: pressure ulcer Francis Test: Does not Francis Pressure Ulcer Stage: deep tissue injury - resolved. Wound Thickness: Full Thickness Percent of Wound [place]/Red: 100 Wound Drainage Amount: None Wound Drainage Odor: None/Absent Tissue Surrounding Wound: Intact Wound General Appearance: Asymptomatic, Open to air, Clean/Dry Wound Assessment #3: Wound Number: #3 Wound Present on Admission: Yes New Wound: No Status Change of Wound: No Wound Location Body Site Modif: right Wound Location Body Site: ear Wound Type: pressure ulcer Francis Test: Does not Francis Pressure Ulcer Stage: III Wound Thickness: Full Thickness Wound Length: 1.8 Wound Width: 1.0 Wound Depth: 0.1 Percent of Wound [place]/Red: 100 Wound Drainage Description: Serosanguineous Wound Drainage Amount: Scant Wound Drainage Odor: None/Absent Tissue Surrounding Wound: Macerated Wound General Appearance: Reddened, Draining Wound Assessment #4: Wound Number: #4 Wound Present on Admission: Yes New Wound: No Status Change of Wound: No Wound Location Body Site Modif: left Wound Location Body Site: ear Wound Type: pressure ulcer Francis Test: Does not Francis Pressure Ulcer Stage: IV/unstageable Wound Thickness: Full Thickness Wound Length: 5.0 Wound Width: 3.0 Wound Depth: utd Percent of Wound [place]/Red: 80 Percent of Wound Bed Yellow/Wh: 20 Wound Drainage Description: Serosanguineous Wound Drainage Amount: Moderate Wound Drainage Odor: None/Absent Tissue Surrounding Wound: Macerated Wound General Appearance: Reddened, Draining, Necrotic - yellow Wound Assessment #5: Wound Number: #5 Wound Present on Admission: Yes New Wound: No Status Change of Wound: No Wound Location Body Site Modif: left, lateral Wound Location Body Site: malleolus/ankle Wound Type: pressure ulcer Francis Test: Does not Francis Pressure Ulcer Stage: IV/unstageable Wound Thickness: Full Thickness Wound Length: 2.5 Wound Width: 2.5 Wound Depth: utd Percent of Wound Bed Yellow/Wh: 40 Percent of Wound Black/Brown: 60 Wound Drainage Description: Serosanguineous Wound Drainage Amount: Scant Wound Drainage Odor: None/Absent Tissue Surrounding Wound: Intact Wound General Appearance: Blackened, Necrotic Wound Assessment #6: Wound Number: #6 Wound Present on Admission: Yes New Wound: No Status Change of Wound: No Wound Location Body Site Modif: left Wound Location Body Site: metatarsal head - 1st Wound Type: pressure ulcer Francis Test: Does not Francis Pressure Ulcer Stage: deep tissue injury Wound Thickness: Full Thickness Wound Length: 2.0 Wound Width: 2.0 Wound Depth: utd Percent of Wound [place]/Red: 100 - scar tissue appearing Wound Drainage Amount: None Wound Drainage Odor: None/Absent Tissue Surrounding Wound: Erythemic Wound General Appearance: Reddened Wound Assessment #7: Wound Number: #7 Wound Present on Admission: Yes New Wound: No Status Change of Wound: No Wound Location Body Site Modif: left Wound Location Body Site: heel Wound Type: pressure ulcer Francis Test: Does not Francis Pressure Ulcer Stage: IV/unstageable Wound Thickness: Full Thickness Wound Length: 5.5 Wound Width: 4.5 Wound Depth: utd Percent of Wound Black/Brown: 100 - intact unstageable. Wound Drainage Amount: None Wound Drainage Odor: None/Absent Tissue Surrounding Wound: Intact Wound General Appearance: Blackened Wound Assessment #8: Wound Number: #8 Wound Present on Admission: Yes New Wound: No Status Change of Wound: No Wound Location Body Site Modif: mid Wound Location Body Site: other - sacrococcygeal Wound Type: pressure ulcer Francis Test: Does not Francis Pressure Ulcer Stage: IV/unstageable Wound Thickness: Full Thickness Wound Length: 11.0 Wound Width: 18.0 Wound Depth: utd Percent of Wound [place]/Red: 50 Percent of Wound Bed Yellow/Wh: 30 Percent of Wound Purple/Maroon: 20 Wound Drainage Description: Serosanguineous Wound Drainage Amount: Copious Wound Drainage Odor: Mild Odor Tissue Surrounding Wound: Macerated Wound General Appearance: Reddened, Draining, Necrotic Wound Assessment #9: Wound Number: #9 Wound Present on Admission: Yes New Wound: No Status Change of Wound: No Wound Location Body Site Modif: left Wound Location Body Site: ischial tuberosity Wound Type: pressure ulcer Francis Test: Does not Francis Pressure Ulcer Stage: III Wound Thickness: Full Thickness Wound Length: 3.0 Wound Width: 3.0 Wound Depth: 0.1 Percent of Wound [place]/Red: 100 Wound Drainage Description: Serosanguineous Wound Drainage Amount: Scant Wound Drainage Odor: None/Absent Tissue Surrounding Wound: Erythemic Wound General Appearance: Reddened, Draining Wound Assessment #10: Wound Number: #10 Wound Present on Admission: No New Wound: Yes Status Change of Wound: No Wound Location Body Site Modif: right Wound Location Body Site: buttocks Wound Type: pressure ulcer Francis Test: Does not Francis Pressure Ulcer Stage: II - scattered Wound Thickness: Partial Thickness Percent of Wound [place]/Red: 100 Wound Drainage Description: Serosanguineous Wound Drainage Amount: Scant Wound Drainage Odor: None/Absent Tissue Surrounding Wound: Macerated Wound General Appearance: Reddened Wound Assessment #11: Wound Number: #11 Wound Present on Admission: Yes New Wound: No Status Change of Wound: No Wound Location Body Site Modif: right Wound Location Body Site: heel Wound Type: pressure ulcer Francis Test: Does not Francis Pressure Ulcer Stage: II Wound Thickness: Partial Thickness Wound Length: 2.0 Wound Width: 1.0 Wound Depth: 0.1 Percent of Wound [place]/Red: 100 Wound Drainage Description: Serosanguineous Wound Drainage Amount: Scant Wound Drainage Odor: None/Absent Tissue Surrounding Wound: Indurated Wound General Appearance: Reddened Wound Assessment #12: Wound Number: #12 Wound Present on Admission: No New Wound: Yes Status Change of Wound: No Wound Location Body Site Modif: right, medial Wound Location Body Site: malleolus/ankle Wound Type: pressure ulcer Francis Test: Does not Francis Pressure Ulcer Stage: II - denuded blister Wound Thickness: Partial Thickness Wound Length: 2.0 Wound Width: 1.0 Wound Depth: 0.1 Percent of Wound [place]/Red: 100 Wound Drainage Amount: None Wound Drainage Odor: None/Absent Tissue Surrounding Wound: Denuded Wound General Appearance: Reddened Wound Comment #1 Right knee stage II pressure ulcer-noted good progress resolved. #2 Right elbow DTI pressure ulcer- noted good progress resolved. #3 Right ear stage III pressure ulcer- noted good progress decrease in size. #4 Left ear unstageable pressure ulcer- noted good progress increase in pink tissue noted decrease in necrotic tissue noted. #5 Left lateral malleolus unstageable pressure ulcer- noted good progress decrease in size noted. #6 Left lateral 1st metatarsal head DTI pressure ulcer- noted good progress pharmacy consultant in color skin remains intact. #7 Left heel unstageable pressure ulcer- no further deterioration present. #8 Sacral stage IV/unstageable pressure ulcer- noted site remains unstageable present with slough and maroon color to site. #9 Left ischial tuberosity stage III pressure ulcer- no further deterioration present. #10 Multiple full thickness scar tissue on Left shoulder, Left lateral knee, Right lateral knee, Right hip and Left hip all remain intact. #11 Right buttock scattered stage II pressure ulcer. #12 Right heel stage II pressure ulcer. #13 Right medial malleolus denuded blister stage II. Recommendation -Right knee stage II pressure ulcer - resolved monitor for any further skin breakdown. -Right ear stage III pressure ulcer -Left ear unstageable pressure ulcer - Left heel unstageable pressure ulcer - Left ischial tuberosity stage III pressure ulcer, -right buttock scattered stage II, -Right heel stage II -Right Medial malleolus stage II. Cleanse with saline, pat dry, apply Triad cream, cover with bordered gauze daily and PRN soiled/dislodged -Sacral IV/unstageable Cleanse with Dakins solution, pat dry, apply Triad cream to periwound area, apply hydrogel to wound bed apply calcium alginate, cover with 4x4, secure with bordered gauze daily and PRN soiled/dislodged - left lateral malleolus unstageable pressure ulcer Cleanse with saline, pat dry, apply Triad cream to periwound area, apply hydrogel to wound bed apply calcium alginate, cover with 4x4, secure with bordered gauze daily and PRN soiled/dislodged -Local wound care per protocol for DTI on right elbow and left 1st metatarsal head -Low air loss mattress -Keep clean and dry -Heel protector on both heels -Offload both heels -Optimize nutrition -Assess and f/u with MD for any further changes of condition to skin present. AMALIA NIEVES May 21, 2017 16:35
[2017-05-21] MEDS ORDERED: NS 275ml ONE ×2 (17:43→17:44)
[2017-05-21] MEDS ORDERED: Tubing IV Secondary IV ONE (17:44)
--- NOTE | 2017-05-21 20:25 | Infectious Diseases Prog Note ---
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 - SCx : MDR - ACB , KPC - CXR: Worsening atelectasis versus pneumonia right lung base - h/o Provid a+ XDR PSA and Providencia // Stage IV sacral decubitus, not grossly infected - surveillance WCx KPC and ACB, strep, CONS ( colonizer ) - h/o polymicrobial MDR colonization // HCV Ab+ - Abdominal ultrasound of liver : unremarkable // Probable sepsis, SP // Leukocytosis: persistent CT of C/A/P : No evidence of abscess , Pulmonary bibasal parenchymal consolidation // Low grade fever x1 , SP Severe anemia SP PRBCs Sinus tachycardia Chronic VDRF SP trach, PEG h/o cardiac arrest, anoxic encephalopathy Cardiomyopathy SP defibrillator placement Paroxysmal atrial fibrillation Cachexia / severe protein-calorie malnutrition [place] resident DEVON[place] Full Code PLAN: Tygacil and Colistin d# / , add Merrem d# 5 / 10 ( 05/15 SP IV vancomycin, Zosyn d# 5 ) ( SP Merrem and Colistin INH d# ) ( 03/13 SP vancomycin and Zosyn d# 5 ) f/u cultures,( Bl ) Monitor CBC, temperatures Monitor CMP Monitor CXR vent support, trach care, aspiration precautions wound care transfuse prn Subjective Allergies: Coded Allergies: No Known Allergies (Unverified , 03/07/17) Subjective low grade fever x 1 Objective Vital Signs Last 24 Hour Vital Signs Date Time Temp Pulse Resp B/P Pulse Ox O2 Delivery O2 Flow Rate FiO2 05/21/17 20:00 99.0 112 25 99/67 98 Mechanical Ventilator 05/21/17 19:02 100 17 40 05/21/17 16:42 105 19 40 05/21/17 16:00 98.5 108 18 110/67 100 Mechanical Ventilator 40 05/21/17 16:00 40 05/21/17 16:00 104 05/21/17 15:25 111 17 40 05/21/17 13:32 99.4 05/21/17 13:21 117 22 40 05/21/17 12:00 122 05/21/17 12:00 40 05/21/17 12:00 100.1 126 23 113/76 100 Mechanical Ventilator 100 05/21/17 11:07 121 16 40 05/21/17 09:20 108 16 40 05/21/17 09:00 105 97/69 05/21/17 08:00 40 05/21/17 08:00 98.9 108 16 102/68 100 Mechanical Ventilator 40 05/21/17 08:00 105 05/21/17 07:21 103 16 100 Mechanical Ventilator 40 05/21/17 07:18 106 16 40 05/21/17 07:10 106 16 100 Mechanical Ventilator 05/21/17 05:06 112 17 40 05/21/17 04:00 40 05/21/17 04:00 97.7 105 16 109/73 100 Mechanical Ventilator 05/21/17 03:32 108 05/21/17 03:14 108 25 40 05/21/17 01:04 110 29 40 05/21/17 00:00 40 05/21/17 00:00 98.4 103 22 100/67 100 Mechanical Ventilator 40 05/20/17 23:39 100 05/20/17 23:09 109 26 40 05/20/17 22:13 101 16 100 Mechanical Ventilator 40 05/20/17 21:55 105 20 100 Mechanical Ventilator 40 05/20/17 21:02 101 20 40 05/20/17 21:00 102 98/67 Height (Feet): 5 Height (Inches): 7.00 Weight (Pounds): 126 HEENT: mucous membranes moist Respiratory/Chest: no respiratory distress Cardiovascular: no gallop/murmur Abdomen: non distended Laboratory Tests Test 05/21/17 03:40 White Blood Count 19.6 K/UL (4.8-10.8) H Red Blood Count 3.64 M/UL (4.70-6.10) L Hemoglobin 10.0 G/DL (14.2-18.0) L Hematocrit 32.6 % (42.0-52.0) L Mean Corpuscular Volume 90 FL (80-99) Mean Corpuscular Hemoglobin 27.5 PG (27.0-31.0) Mean Corpuscular Hemoglobin Concent 30.7 G/DL (32.0-36.0) L Red Cell Distribution Width 17.3 % (11.6-14.8) H Platelet Count 561 K/UL (150-450) H Mean Platelet Volume 6.4 FL (6.5-10.1) L Neutrophils (%) (Auto) % (45.0-75.0) Lymphocytes (%) (Auto) % (20.0-45.0) Monocytes (%) (Auto) % (1.0-10.0) Eosinophils (%) (Auto) % (0.0-3.0) Basophils (%) (Auto) % (0.0-2.0) Differential Total Cells Counted 100 Neutrophils % (Manual) 87 % (45-75) H Lymphocytes % (Manual) 5 % (20-45) L Monocytes % (Manual) 7 % (1-10) Eosinophils % (Manual) 1 % (0-3) Basophils % (Manual) 0 % (0-2) Band Neutrophils 0 % (0-8) Platelet Estimate Increased H Platelet Morphology Normal Hypochromasia 1+ Anisocytosis 1+ Sodium Level 150 mEQ/L (135-145) H Potassium Level 4.2 mEQ/L (3.4-4.9) Chloride Level 111 mEQ/L (98-107) H Carbon Dioxide Level 31 mEQ/L (20-30) H Anion Gap 8 (5-15) Blood Urea Nitrogen 40 mg/dL (7-23) H Creatinine 0.5 mg/dL (0.7-1.2) L Estimat Glomerular Filtration Rate > 60 mL/min (>60) Glucose Level 103 mg/dL (74-106) Calcium Level 8.9 mg/dL (8.6-10.2) Phosphorus Level 3.0 mg/dL (2.5-4.8) Magnesium Level 2.0 mg/dL (1.7-2.5) Total Bilirubin 0.3 mg/dL (0.0-1.2) Aspartate Amino Transf (AST/SGOT) 40 U/L (5-40) Alanine Aminotransferase (ALT/SGPT) 35 U/L (3-41) Alkaline Phosphatase 166 U/L (40-129) H Total Protein 8.6 g/dL (6.6-8.7) Albumin 2.2 g/dL (3.5-5.2) L Globulin 6.4 g/dL Albumin/Globulin Ratio 0.3 (1.0-2.7) L Current Medications Medications (Trade) Dose Ordered Sig/Tameka Route PRN Reason Start Time Stop Time Status Last Admin Dose Admin Acetaminophen 650 mg 650 mg Q4H PRN ORAL FEVER 6/24/17 18:15 06/09/17 18:14 05/21/17 12:33 Amiodarone HCl (Cordarone) 200 mg DAILY GT 05/11/17 09:00 06/10/17 08:59 05/21/17 09:16 Ascorbic Acid (Vitamin C) 500 mg DAILY GT 05/17/17 13:57 06/13/17 08:59 05/21/17 09:15 Carvedilol (Coreg) 3.125 mg Q12HR GT 05/10/17 21:00 06/09/17 20:59 05/20/17 09:41 Colistimethate Sodium (Colistin *inhalation use only*) 150 mg Q12HR@10,22 INH 05/14/17 13:00 05/28/17 12:59 05/21/17 07:15 Dextrose (Dextrose 50%) STAT PRN IV Hypoglycemia 05/10/17 18:15 06/09/17 18:14 Furosemide (Lasix) 60 mg DAILY GT 05/11/17 09:00 06/10/17 08:59 05/21/17 09:17 Heparin Sodium (Porcine) (Heparin 5000 units/ml) 5,000 units EVERY 12 HOURS SUBQ 05/21/17 21:00 06/20/17 20:59 Levetiracetam (Keppra) 500 mg Q12HR GT 05/10/17 21:00 06/09/17 20:59 05/21/17 09:17 Lorazepam (Ativan 2mg/ml 1ml) 2 mg Q2H PRN IV For Anxiety 05/16/17 16:15 05/23/17 16:14 Meropenem/Sodium Chloride (Merrem/Sodium Chloride) 55 ml @ 110 mls/hr EVERY 8 HOURS IVPB 05/17/17 16:00 05/26/17 15:59 05/21/17 14:00 Morphine Sulfate (Morphine Sulfate) 4 mg Q4H PRN IVP Severe Pain (Pain Scale 7-10) 05/16/17 15:15 05/23/17 15:14 05/21/17 20:01 Ondansetron HCl (Zofran) 4 mg Q6H PRN IVP Nausea & Vomiting 05/10/17 18:15 06/09/17 18:14 Polyethylene Glycol (Miralax) 17 gm DAILYPRN PRN GT Constipation 05/17/17 13:57 06/09/17 18:14 Sodium Hypochlorite (Dakin's Half Strength) 1 applic DAILY TOPIC 05/22/17 09:00 06/21/17 08:59 Spironolactone 25 mg 25 mg DAILY GT 05/17/17 13:57 06/10/17 08:59 05/21/17 09:16 Tigecycline/ Dextrose (Tygacil/D5W) 110 ml @ 220 mls/hr EVERY 12 HOURS IVPB 05/14/17 23:00 05/28/17 22:59 05/21/17 09:17 MARCUS PA M.D. May 21, 2017 20:25
[2017-05-21] MEDS: Heparin 5000 units/ml inj SUBQ SCH (20:32)
[2017-05-22 04:00] VITALS: BP 113/75
[2017-05-22] MEDS: Morphine Sulfate 4mg/ml Inj IVP PRN (04:18)
[2017-05-22 05:06] LABS: MEAN CORPUSCULAR HEMOGLOBIN 27.3 PG (27.0-31.0); MEAN CORPUSCULAR HGB CONC 30.4 G/DL (32.0-36.0); MEAN CORPUSCULAR VOLUME 90 FL (80-99); MEAN PLATELET VOLUME 6.4 FL (6.5-10.1); PLATELET COUNT 637 K/UL (150-450); RED CELL DISTRIBUTION WIDTH 17.7 % (11.6-14.8)
[2017-05-22] MEDS: Meropenem 500 MG in NS 55 ML IVPB SCH ×3 (05:10→21:38)
[2017-05-22 05:11] LABS: WHITE BLOOD COUNT 24.3 K/UL (4.8-10.8)
[2017-05-22 05:31] LABS: ALANINE AMINOTRANSFERASE 29 U/L (3-41); ALBUMIN/GLOBULIN RATIO 0.3 (1.0-2.7); ANION GAP 11 (5-15); ASPARTATE AMINO TRANSFERASE 33 U/L (5-40); CALCIUM 9.1 mg/dL (8.6-10.2); CARBON DIOXIDE 30 mEQ/L (20-30); CHLORIDE 109 mEQ/L (98-107); CREATININE 0.5 mg/dL (0.7-1.2); GLOMERULAR FILTRATION RATE > 60 mL/min (>60); HEMOLYSIS 0; MAGNESIUM 1.8 mg/dL (1.7-2.5); PHOSPHORUS 3.1 mg/dL (2.5-4.8); POTASSIUM 4.3 mEQ/L (3.4-4.9); SODIUM 150 mEQ/L (135-145)
[2017-05-22 08:03] VITALS: BP 100/75
[2017-05-22 08:15] LABS: LYMPHOCYTES % (MANUAL) 8 % (20-45); NEUTROPHILS % (MANUAL) 88 % (45-75); TOTAL CELLS COUNTED 100
[2017-05-22 08:16] LABS: ANISOCYTOSIS 1+; BAND NEUTROPHILS % (MANUAL) 0 % (0-8); BASOPHILS % (MANUAL) 0 % (0-2); EOSINOPHILS % (MANUAL) 0 % (0-3); HYPOCHROMASIA 1+; PLATELET ESTIMATE INCREASED; PLATELET MORPHOLOGY NORMAL
[2017-05-22] MEDS: Tigecycline 50 MG in D5W 110 ML IVPB SCH ×2 (09:33→20:50)
[2017-05-22] MEDS: levETIRAcetam 500mg/5ml Liquid GT SCH ×2 (09:33→20:50)
[2017-05-22] MEDS: Ascorbic Acid 500mg tab GT SCH (09:34)
[2017-05-22] MEDS: Amiodarone 200mg tab GT SCH (09:34)
[2017-05-22] MEDS: Spironolactone 25mg tab GT SCH (09:34)
[2017-05-22] MEDS: Heparin 5000 units/ml inj SUBQ SCH ×2 (09:37→20:51)
[2017-05-22] MEDS: Dakin's 0.25% (Half Strength) 16oz TOPIC SCH (10:16)
[2017-05-22] MEDS: Colistin for inhalation INH SCH ×2 (10:28→20:59)
--- NOTE | 2017-05-22 11:26 | GI Progress Note ---
Assessment/Plan Problems: (1) Anemia ICD Codes: D64.9 - Anemia, unspecified SNOMED: 378738928 Qualifiers: Qualified Codes: D64.9 - Anemia, unspecified (2) EF of 30 (3) Feeding by G-tube ICD Codes: Z93.1 - Gastrostomy status SNOMED: 862409076, 743990374 (4) Transaminitis ICD Codes: R74.0 - Nonspecific elevation of levels of transaminase and lactic acid dehydrogenase [LDH] SNOMED: 926483358 (5) Leukocytosis ICD Codes: D72.829 - Elevated white blood cell count, unspecified SNOMED: 460959510, 769187300 Status: stable Status Narrative Discussed with Dr. Alex. Assessment/Plan occult blood stool >> negative x 2 stable H&H, transfuse prn GT replaced. GTFs per dietary, monitor residuals PPI for GI prophylaxis abx fu labs Subjective Subjective limited Objective Last 24 Hour Vital Signs Date Time Temp Pulse Resp B/P Pulse Ox O2 Delivery O2 Flow Rate FiO2 05/22/17 10:42 102 16 40 05/22/17 10:41 101 16 100 Mechanical Ventilator 40 05/22/17 10:27 102 16 100 Mechanical Ventilator 40 05/22/17 09:35 120 100/75 05/22/17 09:10 118 16 40 05/22/17 08:03 98.1 120 20 100/75 100 Mechanical Ventilator 05/22/17 06:58 120 17 40 05/22/17 05:17 120 16 40 05/22/17 05:00 119 05/22/17 04:00 99.6 122 22 113/75 100 Mechanical Ventilator 05/22/17 04:00 40 05/22/17 03:11 108 16 40 05/22/17 00:46 112 20 40 05/22/17 00:09 112 05/22/17 00:00 40 05/21/17 23:52 98.7 116 19 113/78 100 Mechanical Ventilator 05/21/17 23:28 116 20 40 05/21/17 21:32 111 16 100 Mechanical Ventilator 40 05/21/17 21:13 115 16 40 05/21/17 21:13 115 16 100 Mechanical Ventilator 40 05/21/17 20:35 112 99/67 05/21/17 20:00 99.0 112 25 99/67 98 Mechanical Ventilator 05/21/17 20:00 40 05/21/17 19:31 111 05/21/17 19:02 100 17 40 05/21/17 16:42 105 19 40 05/21/17 16:00 98.5 108 18 110/67 100 Mechanical Ventilator 40 05/21/17 16:00 40 05/21/17 16:00 104 05/21/17 15:25 111 17 40 05/21/17 13:32 99.4 05/21/17 13:21 117 22 40 05/21/17 12:00 122 05/21/17 12:00 40 05/21/17 12:00 100.1 126 23 113/76 100 Mechanical Ventilator 100 Intake and Output 05/21/17 05/22/17 19:00 07:00 Intake Total 1200 ml 1225.2 ml Output Total 325 ml 700 ml Balance 875 ml 525.2 ml Intake Free Water 200 ml 100 ml IV Total 165 ml 315.2 ml Tube Feeding 715 ml 780 ml Other 120 ml 30 ml Output Urine Total 325 ml 700 ml # Bowel Movements 1 4 Laboratory Tests Test 05/22/17 03:10 White Blood Count 24.3 K/UL (4.8-10.8) *H Red Blood Count 3.70 M/UL (4.70-6.10) L Hemoglobin 10.1 G/DL (14.2-18.0) L Hematocrit 33.2 % (42.0-52.0) L Mean Corpuscular Volume 90 FL (80-99) Mean Corpuscular Hemoglobin 27.3 PG (27.0-31.0) Mean Corpuscular Hemoglobin Concent 30.4 G/DL (32.0-36.0) L Red Cell Distribution Width 17.7 % (11.6-14.8) H Platelet Count 637 K/UL (150-450) H Mean Platelet Volume 6.4 FL (6.5-10.1) L Neutrophils (%) (Auto) % (45.0-75.0) Lymphocytes (%) (Auto) % (20.0-45.0) Monocytes (%) (Auto) % (1.0-10.0) Eosinophils (%) (Auto) % (0.0-3.0) Basophils (%) (Auto) % (0.0-2.0) Differential Total Cells Counted 100 Neutrophils % (Manual) 88 % (45-75) H Lymphocytes % (Manual) 8 % (20-45) L Monocytes % (Manual) 4 % (1-10) Eosinophils % (Manual) 0 % (0-3) Basophils % (Manual) 0 % (0-2) Band Neutrophils 0 % (0-8) Platelet Estimate Increased H Platelet Morphology Normal Hypochromasia 1+ Anisocytosis 1+ Sodium Level 150 mEQ/L (135-145) H Potassium Level 4.3 mEQ/L (3.4-4.9) Chloride Level 109 mEQ/L (98-107) H Carbon Dioxide Level 30 mEQ/L (20-30) Anion Gap 11 (5-15) Blood Urea Nitrogen 49 mg/dL (7-23) H Creatinine 0.5 mg/dL (0.7-1.2) L Estimat Glomerular Filtration Rate > 60 mL/min (>60) Glucose Level 130 mg/dL (74-106) H Calcium Level 9.1 mg/dL (8.6-10.2) Phosphorus Level 3.1 mg/dL (2.5-4.8) Magnesium Level 1.8 mg/dL (1.7-2.5) Total Bilirubin 0.3 mg/dL (0.0-1.2) Aspartate Amino Transf (AST/SGOT) 33 U/L (5-40) Alanine Aminotransferase (ALT/SGPT) 29 U/L (3-41) Alkaline Phosphatase 189 U/L (40-129) H Total Protein 8.0 g/dL (6.6-8.7) Albumin 2.1 g/dL (3.5-5.2) L Globulin 5.9 g/dL Albumin/Globulin Ratio 0.3 (1.0-2.7) L Height (Feet): 5 Height (Inches): 7.00 Weight (Pounds): 126 General Appearance: no apparent distress, alert, thin Cardiovascular: normal rate Respiratory/Chest: other - [facility] vent Abdominal Exam: site - c/d/i Lani Last N.PBeto May 22, 2017 11:26
[2017-05-22 12:00] VITALS: BP 99/76
--- NOTE | 2017-05-22 12:04 | Pulmonology Progress Note ---
Assessment/Plan Problems: (1) Acute on chronic respiratory failure (2) Anemia (3) Right pulmonary infiltrate on CXR (4) Chronic respiratory acidosis (5) Feeding by G-tube (6) EF of 30 Assessment/Plan: persistent fever with increasing wbc, lowry culture continue Tygacil, Colistin & Meropenem Respiratory: monitor respiratory rate Cardiac: start pressors, stop pressors Renal: keep IV fluid Infectious Disease: check cultures, continue antibiotics Gastrointestinal: hold feedings Endocrine: check HgA1C Neurologic: PRN Morphine Affect: PRN ativan Prophylaxis: Heparin Notes Reviewed: renal, ID Discussed with: nurses, consultants Subjective ROS Limited/Unobtainable: No HEENT: Repors: no symptoms Allergies: Coded Allergies: No Known Allergies (Unverified , 03/07/17) Objective Last 24 Hour Vital Signs Date Time Temp Pulse Resp B/P Pulse Ox O2 Delivery O2 Flow Rate FiO2 05/22/17 10:42 102 16 40 05/22/17 10:41 101 16 100 Mechanical Ventilator 40 05/22/17 10:27 102 16 100 Mechanical Ventilator 40 05/22/17 09:35 120 100/75 05/22/17 09:10 118 16 40 05/22/17 08:03 98.1 120 20 100/75 100 Mechanical Ventilator 05/22/17 06:58 120 17 40 05/22/17 05:17 120 16 40 05/22/17 05:00 119 05/22/17 04:00 99.6 122 22 113/75 100 Mechanical Ventilator 05/22/17 04:00 40 05/22/17 03:11 108 16 40 05/22/17 00:46 112 20 40 05/22/17 00:09 112 05/22/17 00:00 40 05/21/17 23:52 98.7 116 19 113/78 100 Mechanical Ventilator 05/21/17 23:28 116 20 40 05/21/17 21:32 111 16 100 Mechanical Ventilator 40 05/21/17 21:13 115 16 40 05/21/17 21:13 115 16 100 Mechanical Ventilator 40 05/21/17 20:35 112 99/67 05/21/17 20:00 99.0 112 25 99/67 98 Mechanical Ventilator 05/21/17 20:00 40 05/21/17 19:31 111 05/21/17 19:02 100 17 40 05/21/17 16:42 105 19 40 05/21/17 16:00 98.5 108 18 110/67 100 Mechanical Ventilator 40 05/21/17 16:00 40 05/21/17 16:00 104 05/21/17 15:25 111 17 40 05/21/17 13:32 99.4 05/21/17 13:21 117 22 40 Intake and Output 05/21/17 05/22/17 19:00 07:00 Intake Total 1200 ml 1225.2 ml Output Total 325 ml 700 ml Balance 875 ml 525.2 ml Intake Free Water 200 ml 100 ml IV Total 165 ml 315.2 ml Tube Feeding 715 ml 780 ml Other 120 ml 30 ml Output Urine Total 325 ml 700 ml # Bowel Movements 1 4 General Appearance: WD/WN, no acute distress HEENT: normocephalic Respiratory/Chest: chest wall non-tender, normal breath sounds Cardiovascular: normal peripheral pulses, regular rhythm Abdomen: normal bowel sounds, no organomegaly Extremities: no cyanosis Skin: no rash, no lesions 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: responsive Lymphatic: no neck adenopathy Laboratory Tests 05/22/17 03:10: White Blood Count 24.3*H, Red Blood Count 3.70L, Hemoglobin 10.1L, Hematocrit 33.2L, Mean Corpuscular Volume 90, Mean Corpuscular Hemoglobin 27.3, Mean Corpuscular Hemoglobin Concent 30.4L, Red Cell Distribution Width 17.7H, Platelet Count 637H, Mean Platelet Volume 6.4L, Neutrophils (%) (Auto) , Lymphocytes (%) (Auto) , Monocytes (%) (Auto) , Eosinophils (%) (Auto) , Basophils (%) (Auto) , Differential Total Cells Counted 100, Neutrophils % ( Manual) 88H, Lymphocytes % (Manual) 8L, Monocytes % (Manual) 4, Eosinophils % ( Manual) 0, Basophils % (Manual) 0, Band Neutrophils 0, Platelet Estimate IncreasedH, Platelet Morphology Normal, Hypochromasia 1+, Anisocytosis 1+, Sodium Level 150H, Potassium Level 4.3, Chloride Level 109H, Carbon Dioxide Level 30, Anion Gap 11, Blood Urea Nitrogen 49H, Creatinine 0.5L, Estimat Glomerular Filtration Rate > 60, Glucose Level 130H, Calcium Level 9.1, Phosphorus Level 3.1, Magnesium Level 1.8, Total Bilirubin 0.3, Aspartate Amino Transf (AST/SGOT) 33, Alanine Aminotransferase (ALT/SGPT) 29, Alkaline Phosphatase 189H, Total Protein 8.0, Albumin 2.1L, Globulin 5.9, Albumin/ Globulin Ratio 0.3L Current Medications Medications (Trade) Dose Ordered Sig/Tameka Route PRN Reason Start Time Stop Time Status Last Admin Dose Admin Acetaminophen 650 mg 650 mg Q4H PRN ORAL FEVER 05/10/17 18:15 06/09/17 18:14 05/21/17 12:33 Amiodarone HCl (Cordarone) 200 mg DAILY GT 05/11/17 09:00 06/10/17 08:59 05/22/17 09:34 Ascorbic Acid (Vitamin C) 500 mg DAILY GT 05/17/17 13:57 06/13/17 08:59 05/22/17 09:34 Carvedilol (Coreg) 3.125 mg Q12HR GT 05/10/17 21:00 06/09/17 20:59 05/22/17 09:35 Colistimethate Sodium (Colistin *inhalation use only*) 150 mg Q12HR@10,22 INH 05/14/17 13:00 05/28/17 12:59 05/22/17 10:28 Dextrose (Dextrose 50%) STAT PRN IV Hypoglycemia 05/10/17 18:15 06/09/17 18:14 Furosemide (Lasix) 60 mg DAILY GT 05/11/17 09:00 06/10/17 08:59 05/22/17 09:34 Heparin Sodium (Porcine) (Heparin 5000 units/ml) 5,000 units EVERY 12 HOURS SUBQ 05/21/17 21:00 06/20/17 20:59 05/22/17 09:37 Levetiracetam (Keppra) 500 mg Q12HR GT 05/10/17 21:00 06/09/17 20:59 05/22/17 09:33 Lorazepam (Ativan 2mg/ml 1ml) 2 mg Q2H PRN IV For Anxiety 05/16/17 16:15 05/23/17 16:14 Meropenem/Sodium Chloride (Merrem/Sodium Chloride) 55 ml @ 110 mls/hr EVERY 8 HOURS IVPB 05/17/17 16:00 05/26/17 15:59 05/22/17 05:10 Morphine Sulfate (Morphine Sulfate) 4 mg Q4H PRN IVP Severe Pain (Pain Scale 7-10) 05/16/17 15:15 05/23/17 15:14 05/22/17 04:18 Ondansetron HCl (Zofran) 4 mg Q6H PRN IVP Nausea & Vomiting 05/10/17 18:15 06/09/17 18:14 Polyethylene Glycol (Miralax) 17 gm DAILYPRN PRN GT Constipation 05/17/17 13:57 06/09/17 18:14 Sodium Hypochlorite (Dakin's Half Strength) 1 applic DAILY TOPIC 05/22/17 09:00 06/21/17 08:59 05/22/17 10:16 Spironolactone 25 mg 25 mg DAILY GT 05/17/17 13:57 06/10/17 08:59 05/22/17 09:34 Tigecycline/ Dextrose (Tygacil/D5W) 110 ml @ 220 mls/hr EVERY 12 HOURS IVPB 05/14/17 23:00 05/28/17 22:59 05/22/17 09:33 ODETTE SMILEY May 22, 2017 12:04
--- NOTE | 2017-05-22 12:47 | Consultation ---
History of Present Illness General Date patient seen: May 22, 2017 Time patient seen: 12:33 Referring physician: Josué Reason for Consultation: Sacral Pressure Ulcer Present Illness HPI Asked to evaluate this 57 yom with sacral pressure ulcer. He was transferred to [facility] [place] a SNF for tachycardia, possible sepsis. He is bedridden with PEG/trach with h/o massive OH, anoxic encephalopathy, and severe cardiomyopathy with EF of 30%. He is non verbal and history obtained from medical records. It is unclear how long he has had the sacral ulcer and what the treatments were prior to admission to [facility] [place]. He had positive wound culture for multiple organisms as well as pulmonary infiltrates/pneumonia. He is being followed by ID. Allergies: Coded Allergies: No Known Allergies (Unverified , 03/07/17) Medication History Scheduled Amiodarone Hcl (Amiodarone Hcl), 200 MG GT DAILY, (Reported) Ascorbic Acid* (Vitamin C*), 500 MG ORAL DAILY, (Reported) Aspirin* (Aspir 81*), 81 MG GT DAILY, (Reported) Carvedilol (Coreg), 3.125 MG GT Q12HR Carvedilol* (Carvedilol*), 6.25 MG GT BID, (Reported) Cefepime Hcl/D5w (Cefepime-Dextrose 2 Gm/50 Ml), 2 GM IVPB EVERY 12 HOURS, ( Reported) Clonidine Hcl (Clonidine Hcl), 0.1 MG PO Q6HR, (Reported) Colistimethate Sodium (Colistin), 150 MG INH Q12HR@10,22 Docusate Sodium* (Docusate Sodium*), 100 MG ORAL TWICE A DAY, (Reported) Furosemide* (Lasix*), 60 MG GT DAILY, (Reported) Lansoprazole* (Prevacid*), 30 MG GT DAILY, (Reported) Levetiracetam* (Levetiracetam*), 500 MG GT BID, (Reported) Lisinopril* (Lisinopril*), 10 MG ORAL DAILY, (Reported) Lorazepam* (Lorazepam*), 1 MG GT THREE TIMES A DAY, (Reported) Meropenem (Merrem), 1 GM IV EVERY 8 HOURS Multivitamin Liquid* (Multi-Delyn*), 5 ML GT DAILY, (Reported) Nitrofurantoin Macrocrystal (Macrodantin*), 50 MG GT FOUR TIMES A DAY, (Reported ) Omeprazole (Omeprazole), 40 MG ORAL DAILY, (Reported) Spironolactone* (Aldactone*), 25 MG ORAL DAILY, (Reported) Vancomycin Hcl/D5w (Vancomycin-D5w 1 G/250 Ml), 1 GM IVPB Q12HR, (Reported) Warfarin Sod (Coumadin*), 7.5 MG GT DAILY, (Reported) Zinc Sulfate (Zinc Sulfate*), 220 MG ORAL DAILY, (Reported) Scheduled PRN Hydrocodone Bit/Acetaminophen 5-325* (Garrison 5-325*), 1 TAB ORAL Q4H PRN for For Pain, (Reported) Ondansetron* (Zofran*), 4 MG GT Q6H PRN for Nausea & Vomiting, (Reported) Tramadol Hcl* (Ultram*), 50 MG GT Q6H PRN for For Pain, (Reported) Miscellaneous Medications Albuterol Sulfate (Albuterol Sulfate), 2.5 MG IH, (Reported) Lactulose (Lactulose*), 30 ML ORAL, (Reported) Patient History Limited by: medical condition History Provided By: Medical Record Healthcare decision maker Resuscitation status Full Code Advanced Directive on File Physical Exam General Appearance: no apparent distress, cachetic Lines, tubes and drains: peripheral, trach, gtube, tierney cath Respiratory/Chest: no respiratory distress Abdomen: soft Genitourinary/Rectal: tierney Skin Exam: other - Large stage 4 sacrococcyx pressure ulcer with bone exposed at the base. Majority of the ulcer has healthy granulation tissue. Small amount of fibrotic debris along side wall of the ulcer. Undermining present circumferentially. Periskin with no erythema warmth, odor, or purulent drainage. Musculoskeletal: atrophy, other - Flexion contractures at the hip and knee bilaterally. Last 24 Hour Vital Signs Date Time Temp Pulse Resp B/P Pulse Ox O2 Delivery O2 Flow Rate FiO2 05/22/17 12:00 98.7 102 19 99/76 100 Mechanical Ventilator 05/22/17 10:42 102 16 40 05/22/17 10:41 101 16 100 Mechanical Ventilator 40 05/22/17 10:27 102 16 100 Mechanical Ventilator 40 05/22/17 09:35 120 100/75 05/22/17 09:10 118 16 40 05/22/17 08:03 98.1 120 20 100/75 100 Mechanical Ventilator 05/22/17 06:58 120 17 40 05/22/17 05:17 120 16 40 05/22/17 05:00 119 05/22/17 04:00 99.6 122 22 113/75 100 Mechanical Ventilator 05/22/17 04:00 40 05/22/17 03:11 108 16 40 05/22/17 00:46 112 20 40 05/22/17 00:09 112 05/22/17 00:00 40 05/21/17 23:52 98.7 116 19 113/78 100 Mechanical Ventilator 05/21/17 23:28 116 20 40 05/21/17 21:32 111 16 100 Mechanical Ventilator 40 05/21/17 21:13 115 16 40 05/21/17 21:13 115 16 100 Mechanical Ventilator 40 05/21/17 20:35 112 99/67 05/21/17 20:00 99.0 112 25 99/67 98 Mechanical Ventilator 05/21/17 20:00 40 05/21/17 19:31 111 05/21/17 19:02 100 17 40 05/21/17 16:42 105 19 40 05/21/17 16:00 98.5 108 18 110/67 100 Mechanical Ventilator 40 05/21/17 16:00 40 05/21/17 16:00 104 05/21/17 15:25 111 17 40 05/21/17 13:32 99.4 05/21/17 13:21 117 22 40 Intake and Output 05/21/17 05/22/17 19:00 07:00 Intake Total 1200 ml 1225.2 ml Output Total 325 ml 700 ml Balance 875 ml 525.2 ml Intake Free Water 200 ml 100 ml IV Total 165 ml 315.2 ml Tube Feeding 715 ml 780 ml Other 120 ml 30 ml Output Urine Total 325 ml 700 ml # Bowel Movements 1 4 Laboratory Tests Test 05/22/17 03:10 White Blood Count 24.3 K/UL (4.8-10.8) *H Red Blood Count 3.70 M/UL (4.70-6.10) L Hemoglobin 10.1 G/DL (14.2-18.0) L Hematocrit 33.2 % (42.0-52.0) L Mean Corpuscular Volume 90 FL (80-99) Mean Corpuscular Hemoglobin 27.3 PG (27.0-31.0) Mean Corpuscular Hemoglobin Concent 30.4 G/DL (32.0-36.0) L Red Cell Distribution Width 17.7 % (11.6-14.8) H Platelet Count 637 K/UL (150-450) H Mean Platelet Volume 6.4 FL (6.5-10.1) L Neutrophils (%) (Auto) % (45.0-75.0) Lymphocytes (%) (Auto) % (20.0-45.0) Monocytes (%) (Auto) % (1.0-10.0) Eosinophils (%) (Auto) % (0.0-3.0) Basophils (%) (Auto) % (0.0-2.0) Differential Total Cells Counted 100 Neutrophils % (Manual) 88 % (45-75) H Lymphocytes % (Manual) 8 % (20-45) L Monocytes % (Manual) 4 % (1-10) Eosinophils % (Manual) 0 % (0-3) Basophils % (Manual) 0 % (0-2) Band Neutrophils 0 % (0-8) Platelet Estimate Increased H Platelet Morphology Normal Hypochromasia 1+ Anisocytosis 1+ Sodium Level 150 mEQ/L (135-145) H Potassium Level 4.3 mEQ/L (3.4-4.9) Chloride Level 109 mEQ/L (98-107) H Carbon Dioxide Level 30 mEQ/L (20-30) Anion Gap 11 (5-15) Blood Urea Nitrogen 49 mg/dL (7-23) H Creatinine 0.5 mg/dL (0.7-1.2) L Estimat Glomerular Filtration Rate > 60 mL/min (>60) Glucose Level 130 mg/dL (74-106) H Calcium Level 9.1 mg/dL (8.6-10.2) Phosphorus Level 3.1 mg/dL (2.5-4.8) Magnesium Level 1.8 mg/dL (1.7-2.5) Total Bilirubin 0.3 mg/dL (0.0-1.2) Aspartate Amino Transf (AST/SGOT) 33 U/L (5-40) Alanine Aminotransferase (ALT/SGPT) 29 U/L (3-41) Alkaline Phosphatase 189 U/L (40-129) H Total Protein 8.0 g/dL (6.6-8.7) Albumin 2.1 g/dL (3.5-5.2) L Globulin 5.9 g/dL Albumin/Globulin Ratio 0.3 (1.0-2.7) L Height (Feet): 5 Height (Inches): 7.00 Weight (Pounds): 126 Medications Current Medications Medications (Trade) Dose Ordered Sig/Tameka Route PRN Reason Start Time Stop Time Status Last Admin Dose Admin Acetaminophen 650 mg 650 mg Q4H PRN ORAL FEVER 05/10/17 18:15 06/09/17 18:14 05/21/17 12:33 Amiodarone HCl (Cordarone) 200 mg DAILY GT 05/11/17 09:00 06/10/17 08:59 05/22/17 09:34 Ascorbic Acid (Vitamin C) 500 mg DAILY GT 05/17/17 13:57 06/13/17 08:59 05/22/17 09:34 Carvedilol (Coreg) 3.125 mg Q12HR GT 05/10/17 21:00 06/09/17 20:59 05/22/17 09:35 Colistimethate Sodium (Colistin *inhalation use only*) 150 mg Q12HR@10,22 INH 05/14/17 13:00 05/28/17 12:59 05/22/17 10:28 Dextrose (Dextrose 50%) STAT PRN IV Hypoglycemia 05/10/17 18:15 06/09/17 18:14 Furosemide (Lasix) 60 mg DAILY GT 05/11/17 09:00 06/10/17 08:59 05/22/17 09:34 Heparin Sodium (Porcine) (Heparin 5000 units/ml) 5,000 units EVERY 12 HOURS SUBQ 05/21/17 21:00 06/20/17 20:59 05/22/17 09:37 Levetiracetam (Keppra) 500 mg Q12HR GT 05/10/17 21:00 06/09/17 20:59 05/22/17 09:33 Lorazepam (Ativan 2mg/ml 1ml) 2 mg Q2H PRN IV For Anxiety 05/16/17 16:15 05/23/17 16:14 Meropenem/Sodium Chloride (Merrem/Sodium Chloride) 55 ml @ 110 mls/hr EVERY 8 HOURS IVPB 05/17/17 16:00 05/26/17 15:59 05/22/17 05:10 Morphine Sulfate (Morphine Sulfate) 4 mg Q4H PRN IVP Severe Pain (Pain Scale 7-10) 05/16/17 15:15 05/23/17 15:14 05/22/17 04:18 Ondansetron HCl (Zofran) 4 mg Q6H PRN IVP Nausea & Vomiting 05/10/17 18:15 06/09/17 18:14 Polyethylene Glycol (Miralax) 17 gm DAILYPRN PRN GT Constipation 05/17/17 13:57 06/09/17 18:14 Sodium Hypochlorite (Dakin's Half Strength) 1 applic DAILY TOPIC 05/22/17 09:00 06/21/17 08:59 05/22/17 10:16 Spironolactone 25 mg 25 mg DAILY GT 05/17/17 13:57 06/10/17 08:59 05/22/17 09:34 Tigecycline/ Dextrose (Tygacil/D5W) 110 ml @ 220 mls/hr EVERY 12 HOURS IVPB 05/14/17 23:00 05/28/17 22:59 05/22/17 09:33 Assessment/Plan Status: stable Assessment/Plan Patient with large stage 4 sacrococcyx pressure ulcer. He likely has osteomyelitis of the sacrum although some of the culture results may be colonization, Consider treating with 6 weeks IV antibiotics. That being said his ulcer is not the main cause of his WBC of 24k. He has a very poor prognosis for healing this wound due to the followin) Protein malnutrition and overall cachexia 2) Size of the ulcer 3) Low ejection fraction making any surgical option to close the wound extremely high risk. Would continue to offload him, make sure to keep the wound clean. He may benefit from wound vac at some point but need to make sure any bone infection is being treated and nutrition is aggressively being monitored. No surgical intervention recommended at this time. ARLEY PENALOZA May 22, 2017 12:47
--- NOTE | 2017-05-22 13:28 | Infectious Diseases Prog Note ---
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 leukocytosis worsening to 25 today, although CT a/p on 05/17 negative for asbcess, and remains afebrile and hemodynamically stable. Recieving Dakin's to stage IV sacral decubitus for foul smell but no surrounding cellulitis. Tolerating tube feeds with some loose stools. 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 - SCx : MDR - ACB , KPC - CXR: Worsening atelectasis versus pneumonia right lung base - h/o Provid a+ XDR PSA and Providencia // Stage IV sacral decubitus, not grossly infected - surveillance WCx KPC and ACB, strep, CONS ( colonizer ) - h/o polymicrobial MDR colonization // HCV Ab+ - Abdominal ultrasound of liver : unremarkable // Probable sepsis, SP // Leukocytosis: persistent, worsening CT of C/A/P : No evidence of abscess , Pulmonary bibasal parenchymal consolidation // Low grade fever x1 , SP Severe anemia SP PRBCs Sinus tachycardia Chronic VDRF SP trach, PEG h/o cardiac arrest, anoxic encephalopathy Cardiomyopathy SP defibrillator placement Paroxysmal atrial fibrillation Cachexia / severe protein-calorie malnutrition [place] resident NKDA Full Code PLAN: continue Tygacil and Colistin d# / , add Merrem d# 6 / 10 ( 05/15 SP IV vancomycin, Zosyn d# 5 ) ( SP Merrem and Colistin INH d# 6 / ) ( 03/13 SP vancomycin and Zosyn d# 5 ) C diff stool now f/u cultures,( Bl ) Monitor CBC, temperatures Monitor CMP Monitor CXR vent support, trach care, aspiration precautions wound care transfuse prn Subjective Allergies: Coded Allergies: No Known Allergies (Unverified , 03/07/17) Objective Vital Signs Last 24 Hour Vital Signs Date Time Temp Pulse Resp B/P Pulse Ox O2 Delivery O2 Flow Rate FiO2 05/22/17 12:00 101 05/22/17 12:00 98.7 102 19 99/76 100 Mechanical Ventilator 05/22/17 12:00 40 05/22/17 10:42 102 16 40 05/22/17 10:41 101 16 100 Mechanical Ventilator 40 05/22/17 10:27 102 16 100 Mechanical Ventilator 40 05/22/17 09:35 120 100/75 05/22/17 09:10 118 16 40 05/22/17 08:03 98.1 120 20 100/75 100 Mechanical Ventilator 05/22/17 08:00 40 05/22/17 08:00 119 05/22/17 06:58 120 17 40 05/22/17 05:17 120 16 40 05/22/17 05:00 119 05/22/17 04:00 99.6 122 22 113/75 100 Mechanical Ventilator 05/22/17 04:00 40 05/22/17 03:11 108 16 40 05/22/17 00:46 112 20 40 05/22/17 00:09 112 05/22/17 00:00 40 05/21/17 23:52 98.7 116 19 113/78 100 Mechanical Ventilator 05/21/17 23:28 116 20 40 05/21/17 21:32 111 16 100 Mechanical Ventilator 40 05/21/17 21:13 115 16 40 05/21/17 21:13 115 16 100 Mechanical Ventilator 40 05/21/17 20:35 112 99/67 05/21/17 20:00 99.0 112 25 99/67 98 Mechanical Ventilator 05/21/17 20:00 40 05/21/17 19:31 111 05/21/17 19:02 100 17 40 05/21/17 16:42 105 19 40 05/21/17 16:00 98.5 108 18 110/67 100 Mechanical Ventilator 40 05/21/17 16:00 40 05/21/17 16:00 104 05/21/17 15:25 111 17 40 05/21/17 13:32 99.4 Height (Feet): 5 Height (Inches): 7.00 Weight (Pounds): 126 General Appearance: no acute distress HEENT: anicteric, mucous membranes moist Abdomen: soft, non tender Extremities: no edema Skin: no rash Laboratory Tests Test 05/22/17 03:10 White Blood Count 24.3 K/UL (4.8-10.8) *H Red Blood Count 3.70 M/UL (4.70-6.10) L Hemoglobin 10.1 G/DL (14.2-18.0) L Hematocrit 33.2 % (42.0-52.0) L Mean Corpuscular Volume 90 FL (80-99) Mean Corpuscular Hemoglobin 27.3 PG (27.0-31.0) Mean Corpuscular Hemoglobin Concent 30.4 G/DL (32.0-36.0) L Red Cell Distribution Width 17.7 % (11.6-14.8) H Platelet Count 637 K/UL (150-450) H Mean Platelet Volume 6.4 FL (6.5-10.1) L Neutrophils (%) (Auto) % (45.0-75.0) Lymphocytes (%) (Auto) % (20.0-45.0) Monocytes (%) (Auto) % (1.0-10.0) Eosinophils (%) (Auto) % (0.0-3.0) Basophils (%) (Auto) % (0.0-2.0) Differential Total Cells Counted 100 Neutrophils % (Manual) 88 % (45-75) H Lymphocytes % (Manual) 8 % (20-45) L Monocytes % (Manual) 4 % (1-10) Eosinophils % (Manual) 0 % (0-3) Basophils % (Manual) 0 % (0-2) Band Neutrophils 0 % (0-8) Platelet Estimate Increased H Platelet Morphology Normal Hypochromasia 1+ Anisocytosis 1+ Sodium Level 150 mEQ/L (135-145) H Potassium Level 4.3 mEQ/L (3.4-4.9) Chloride Level 109 mEQ/L (98-107) H Carbon Dioxide Level 30 mEQ/L (20-30) Anion Gap 11 (5-15) Blood Urea Nitrogen 49 mg/dL (7-23) H Creatinine 0.5 mg/dL (0.7-1.2) L Estimat Glomerular Filtration Rate > 60 mL/min (>60) Glucose Level 130 mg/dL (74-106) H Calcium Level 9.1 mg/dL (8.6-10.2) Phosphorus Level 3.1 mg/dL (2.5-4.8) Magnesium Level 1.8 mg/dL (1.7-2.5) Total Bilirubin 0.3 mg/dL (0.0-1.2) Aspartate Amino Transf (AST/SGOT) 33 U/L (5-40) Alanine Aminotransferase (ALT/SGPT) 29 U/L (3-41) Alkaline Phosphatase 189 U/L (40-129) H Total Protein 8.0 g/dL (6.6-8.7) Albumin 2.1 g/dL (3.5-5.2) L Globulin 5.9 g/dL Albumin/Globulin Ratio 0.3 (1.0-2.7) L Current Medications Medications (Trade) Dose Ordered Sig/Tameka Route PRN Reason Start Time Stop Time Status Last Admin Dose Admin Acetaminophen 650 mg 650 mg Q4H PRN ORAL FEVER 05/10/17 18:15 06/09/17 18:14 05/21/17 12:33 Amiodarone HCl (Cordarone) 200 mg DAILY GT 05/11/17 09:00 06/10/17 08:59 05/22/17 09:34 Ascorbic Acid (Vitamin C) 500 mg DAILY GT 05/17/17 13:57 06/13/17 08:59 05/22/17 09:34 Carvedilol (Coreg) 3.125 mg Q12HR GT 05/10/17 21:00 06/09/17 20:59 05/22/17 09:35 Colistimethate Sodium (Colistin *inhalation use only*) 150 mg Q12HR@10,22 INH 05/14/17 13:00 05/28/17 12:59 05/22/17 10:28 Dextrose (Dextrose 50%) STAT PRN IV Hypoglycemia 05/10/17 18:15 06/09/17 18:14 Furosemide (Lasix) 60 mg DAILY GT 05/11/17 09:00 06/10/17 08:59 05/22/17 09:34 Heparin Sodium (Porcine) (Heparin 5000 units/ml) 5,000 units EVERY 12 HOURS SUBQ 05/21/17 21:00 06/20/17 20:59 05/22/17 09:37 Levetiracetam (Keppra) 500 mg Q12HR GT 05/10/17 21:00 06/09/17 20:59 05/22/17 09:33 Lorazepam (Ativan 2mg/ml 1ml) 2 mg Q2H PRN IV For Anxiety 05/16/17 16:15 05/23/17 16:14 Meropenem/Sodium Chloride (Merrem/Sodium Chloride) 55 ml @ 110 mls/hr EVERY 8 HOURS IVPB 05/17/17 16:00 05/26/17 15:59 05/22/17 05:10 Morphine Sulfate (Morphine Sulfate) 4 mg Q4H PRN IVP Severe Pain (Pain Scale 7-10) 05/16/17 15:15 05/23/17 15:14 05/22/17 04:18 Ondansetron HCl (Zofran) 4 mg Q6H PRN IVP Nausea & Vomiting 05/10/17 18:15 06/09/17 18:14 Polyethylene Glycol (Miralax) 17 gm DAILYPRN PRN GT Constipation 05/17/17 13:57 06/09/17 18:14 Sodium Hypochlorite (Dakin's Half Strength) 1 applic DAILY TOPIC 05/22/17 09:00 06/21/17 08:59 05/22/17 10:16 Spironolactone 25 mg 25 mg DAILY GT 05/17/17 13:57 06/10/17 08:59 05/22/17 09:34 Tigecycline/ Dextrose (Tygacil/D5W) 110 ml @ 220 mls/hr EVERY 12 HOURS IVPB 05/14/17 23:00 05/28/17 22:59 05/22/17 09:33 Colby Friend M.D. May 22, 2017 13:28
[2017-05-22 16:00] VITALS: BP 99/54
[2017-05-22 20:00] VITALS: BP 99/77
[2017-05-23] VITALS: BP 105/76
[2017-05-23 04:00] VITALS: BP 96/64
[2017-05-23] MEDS: Meropenem 500 MG in NS 55 ML IVPB SCH ×3 (05:09→22:00)
[2017-05-23 06:11] LABS: MEAN CORPUSCULAR HEMOGLOBIN 27.3 PG (27.0-31.0); MEAN CORPUSCULAR HGB CONC 30.2 G/DL (32.0-36.0); MEAN CORPUSCULAR VOLUME 90 FL (80-99); MEAN PLATELET VOLUME 6.4 FL (6.5-10.1); PLATELET COUNT 627 K/UL (150-450); RED BLOOD COUNT 3.84 M/UL (4.70-6.10); RED CELL DISTRIBUTION WIDTH 17.4 % (11.6-14.8); WHITE BLOOD COUNT 21.8 K/UL (4.8-10.8)
[2017-05-23 06:59] LABS: ANION GAP 10 (5-15); CALCIUM 8.8 mg/dL (8.6-10.2); CARBON DIOXIDE 32 mEQ/L (20-30); CHLORIDE 113 mEQ/L (98-107); CREATININE 0.7 mg/dL (0.7-1.2); GLOMERULAR FILTRATION RATE > 60 mL/min (>60); HEMOLYSIS 29; POTASSIUM 4.6 mEQ/L (3.4-4.9); SODIUM 155 mEQ/L (135-145)
[2017-05-23 08:00] VITALS: BP 124/77
[2017-05-23 08:04] LABS: ANISOCYTOSIS 1+; BAND NEUTROPHILS % (MANUAL) 0 % (0-8); BASOPHILS % (MANUAL) 0 % (0-2); EOSINOPHILS % (MANUAL) 0 % (0-3); HYPOCHROMASIA 1+; LYMPHOCYTES % (MANUAL) 12 % (20-45); NEUTROPHILS % (MANUAL) 85 % (45-75); PLATELET ESTIMATE INCREASED; PLATELET MORPHOLOGY NORMAL; TOTAL CELLS COUNTED 100
[2017-05-23] MEDS: levETIRAcetam 500mg/5ml Liquid GT SCH ×2 (09:00→21:07)
[2017-05-23] MEDS: Dakin's 0.25% (Half Strength) 16oz TOPIC SCH (09:00)
[2017-05-23] MEDS: Colistin for inhalation INH SCH ×2 (09:07→21:48)
[2017-05-23] MEDS: Ascorbic Acid 500mg tab GT SCH (10:08)
[2017-05-23] MEDS: Amiodarone 200mg tab GT SCH (10:09)
[2017-05-23] MEDS: Spironolactone 25mg tab GT SCH (10:09)
[2017-05-23] MEDS: Heparin 5000 units/ml inj SUBQ SCH ×2 (10:14→21:08)
[2017-05-23] MEDS: Tigecycline 50 MG in D5W 110 ML IVPB SCH ×2 (10:17→21:05)
--- NOTE | 2017-05-23 10:56 | GI Progress Note ---
Assessment/Plan Problems: (1) Anemia ICD Codes: D64.9 - Anemia, unspecified SNOMED: 488495080 Qualifiers: Qualified Codes: D64.9 - Anemia, unspecified (2) EF of 30 (3) Feeding by G-tube ICD Codes: Z93.1 - Gastrostomy status SNOMED: 055324248, [id number] (4) Transaminitis ICD Codes: R74.0 - Nonspecific elevation of levels of transaminase and lactic acid dehydrogenase [LDH] SNOMED: 648587680 (5) Leukocytosis ICD Codes: D72.829 - Elevated white blood cell count, unspecified SNOMED: 065121051, 473973283 Status: stable Status Narrative Discussed with Dr. Alex. Assessment/Plan occult blood stool >> negative x 2 stable H&H, transfuse prn GT replaced. GTFs per dietary, monitor residuals PPI for GI prophylaxis abx fu labs Subjective Subjective limited Objective Last 24 Hour Vital Signs Date Time Temp Pulse Resp B/P Pulse Ox O2 Delivery O2 Flow Rate FiO2 05/23/17 09:18 133 16 100 Mechanical Ventilator 40 05/23/17 09:08 133 25 100 Mechanical Ventilator 40 05/23/17 09:05 133 25 40 05/23/17 09:00 133 124/76 05/23/17 08:00 99.3 129 22 124/77 100 Mechanical Ventilator 40 05/23/17 08:00 128 05/23/17 08:00 40 05/23/17 07:02 129 24 40 05/23/17 05:40 126 24 40 05/23/17 04:00 97.4 126 18 96/64 100 Mechanical Ventilator 40 05/23/17 04:00 128 05/23/17 04:00 40 05/23/17 02:45 131 23 40 05/23/17 01:00 120 21 40 05/23/17 00:00 12 05/23/17 00:00 40 05/23/17 00:00 97.8 124 18 105/76 100 Mechanical Ventilator 40 05/22/17 23:11 124 22 40 05/22/17 21:09 124 16 100 Mechanical Ventilator 40 05/22/17 20:59 125 23 100 Mechanical Ventilator 40 05/22/17 20:58 125 23 40 05/22/17 20:38 116 99/77 05/22/17 20:00 98.9 125 18 99/77 100 Mechanical Ventilator 40 05/22/17 20:00 40 05/22/17 20:00 123 05/22/17 18:45 122 22 40 05/22/17 16:44 113 23 40 05/22/17 16:00 40 05/22/17 16:00 99.9 112 23 99/54 100 05/22/17 16:00 110 05/22/17 15:28 109 22 40 05/22/17 12:59 106 18 40 05/22/17 12:00 101 05/22/17 12:00 98.7 102 19 99/76 100 Mechanical Ventilator 05/22/17 12:00 40 Intake and Output 05/22/17 05/23/17 19:00 07:00 Intake Total 1095 ml 1100 ml Output Total 1400 ml 474 ml Balance -305 ml 626 ml Intake Free Water 150 ml 100 ml IV Total 165 ml 220 ml Tube Feeding 780 ml 780 ml Output Urine Total 1400 ml 474 ml # Bowel Movements 4 5 Laboratory Tests Test 05/23/17 05:35 White Blood Count 21.8 K/UL (4.8-10.8) H Red Blood Count 3.84 M/UL (4.70-6.10) L Hemoglobin 10.5 G/DL (14.2-18.0) L Hematocrit 34.7 % (42.0-52.0) L Mean Corpuscular Volume 90 FL (80-99) Mean Corpuscular Hemoglobin 27.3 PG (27.0-31.0) Mean Corpuscular Hemoglobin Concent 30.2 G/DL (32.0-36.0) L Red Cell Distribution Width 17.4 % (11.6-14.8) H Platelet Count 627 K/UL (150-450) H Mean Platelet Volume 6.4 FL (6.5-10.1) L Neutrophils (%) (Auto) % (45.0-75.0) Lymphocytes (%) (Auto) % (20.0-45.0) Monocytes (%) (Auto) % (1.0-10.0) Eosinophils (%) (Auto) % (0.0-3.0) Basophils (%) (Auto) % (0.0-2.0) Differential Total Cells Counted 100 Neutrophils % (Manual) 85 % (45-75) H Lymphocytes % (Manual) 12 % (20-45) L Monocytes % (Manual) 3 % (1-10) Eosinophils % (Manual) 0 % (0-3) Basophils % (Manual) 0 % (0-2) Band Neutrophils 0 % (0-8) Platelet Estimate Increased H Platelet Morphology Normal Hypochromasia 1+ Anisocytosis 1+ Sodium Level 155 mEQ/L (135-145) H Potassium Level 4.6 mEQ/L (3.4-4.9) Chloride Level 113 mEQ/L (98-107) H Carbon Dioxide Level 32 mEQ/L (20-30) H Anion Gap 10 (5-15) Blood Urea Nitrogen 51 mg/dL (7-23) H Creatinine 0.7 mg/dL (0.7-1.2) Estimat Glomerular Filtration Rate > 60 mL/min (>60) Glucose Level 133 mg/dL (74-106) H Calcium Level 8.8 mg/dL (8.6-10.2) Microbiology Date/Time Source Procedure Growth Status 05/22/17 18:30 Stool Clostridium difficile Toxin Assay - Final Complete Height (Feet): 5 Height (Inches): 7.00 Weight (Pounds): 126 General Appearance: no apparent distress, alert Cardiovascular: normal rate Respiratory/Chest: other - mech vent Abdominal Exam: GT site - c/d/i Lani Last N.P. May 23, 2017 10:56
--- NOTE | 2017-05-23 11:55 | Pulmonology Progress Note ---
Assessment/Plan Problems: (1) Acute on chronic respiratory failure (2) Anemia (3) Right pulmonary infiltrate on CXR (4) Chronic respiratory acidosis (5) Feeding by G-tube (6) EF of 30 Assessment/Plan: persistent fever with increasing wbc, lowry culture continue Tygacil, Colistin & Meropenem Respiratory: monitor respiratory rate, adjust FIO2, CXR Cardiac: continue to monitor HR/BP Renal: F/U I&O, check electrolytes Infectious Disease: check cultures, continue antibiotics Gastrointestinal: continue feedings/current rate Endocrine: monitor blood sugar, check TSH Hematologic: monitor H/H Neurologic: PRN Morphine Prophylaxis: Protonix, Heparin 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, 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 Discussed with: consultants, family member Subjective ROS Limited/Unobtainable: Yes Allergies: Coded Allergies: No Known Allergies (Unverified , 03/07/17) Objective Last 24 Hour Vital Signs Date Time Temp Pulse Resp B/P Pulse Ox O2 Delivery O2 Flow Rate FiO2 05/23/17 11:17 22 40 05/23/17 09:18 133 16 100 Mechanical Ventilator 40 05/23/17 09:08 133 25 100 Mechanical Ventilator 40 05/23/17 09:05 133 25 40 05/23/17 09:00 133 124/76 05/23/17 08:00 99.3 129 22 124/77 100 Mechanical Ventilator 40 05/23/17 08:00 128 05/23/17 08:00 40 05/23/17 07:02 129 24 40 05/23/17 05:40 126 24 40 05/23/17 04:00 97.4 126 18 96/64 100 Mechanical Ventilator 40 05/23/17 04:00 128 05/23/17 04:00 40 05/23/17 02:45 131 23 40 05/23/17 01:00 120 21 40 05/23/17 00:00 12 05/23/17 00:00 40 05/23/17 00:00 97.8 124 18 105/76 100 Mechanical Ventilator 40 05/22/17 23:11 124 22 40 05/22/17 21:09 124 16 100 Mechanical Ventilator 40 05/22/17 20:59 125 23 100 Mechanical Ventilator 40 05/22/17 20:58 125 23 40 05/22/17 20:38 116 99/77 05/22/17 20:00 98.9 125 18 99/77 100 Mechanical Ventilator 40 05/22/17 20:00 40 05/22/17 20:00 123 05/22/17 18:45 122 22 40 05/22/17 16:44 113 23 40 05/22/17 16:00 40 05/22/17 16:00 99.9 112 23 99/54 100 05/22/17 16:00 110 05/22/17 15:28 109 22 40 05/22/17 12:59 106 18 40 05/22/17 12:00 101 05/22/17 12:00 98.7 102 19 99/76 100 Mechanical Ventilator 05/22/17 12:00 40 Intake and Output 05/22/17 05/23/17 19:00 07:00 Intake Total 1095 ml 1100 ml Output Total 1400 ml 474 ml Balance -305 ml 626 ml Intake Free Water 150 ml 100 ml IV Total 165 ml 220 ml Tube Feeding 780 ml 780 ml Output Urine Total 1400 ml 474 ml # Bowel Movements 4 5 General Appearance: WD/WN HEENT: normocephalic, atraumatic Respiratory/Chest: chest wall non-tender, lungs clear Cardiovascular: normal peripheral pulses, normal rate Abdomen: normal bowel sounds, soft, non tender Extremities: no clubbing 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: no motor/sensory deficits, abnormal gait Lymphatic: no neck adenopathy, no groin adenopathy Musculoskeletal: normal muscle bulk Microbiology Date/Time Source Procedure Growth Status 05/22/17 18:30 Stool Clostridium difficile Toxin Assay - Final Complete Laboratory Tests 05/23/17 05:35: White Blood Count 21.8H, Red Blood Count 3.84L, Hemoglobin 10.5L, Hematocrit 34.7L, Mean Corpuscular Volume 90, Mean Corpuscular Hemoglobin 27.3, Mean Corpuscular Hemoglobin Concent 30.2L, Red Cell Distribution Width 17.4H, Platelet Count 627H, Mean Platelet Volume 6.4L, Neutrophils (%) (Auto) , Lymphocytes (%) (Auto) , Monocytes (%) (Auto) , Eosinophils (%) (Auto) , Basophils (%) (Auto) , Differential Total Cells Counted 100, Neutrophils % ( Manual) 85H, Lymphocytes % (Manual) 12L, Monocytes % (Manual) 3, Eosinophils % ( Manual) 0, Basophils % (Manual) 0, Band Neutrophils 0, Platelet Estimate IncreasedH, Platelet Morphology Normal, Hypochromasia 1+, Anisocytosis 1+, Sodium Level 155H, Potassium Level 4.6, Chloride Level 113H, Carbon Dioxide Level 32H, Anion Gap 10, Blood Urea Nitrogen 51H, Creatinine 0.7, Estimat Glomerular Filtration Rate > 60, Glucose Level 133H, Calcium Level 8.8 Current Medications Medications (Trade) Dose Ordered Sig/Tameka Route PRN Reason Start Time Stop Time Status Last Admin Dose Admin Acetaminophen 650 mg 650 mg Q4H PRN ORAL FEVER 05/10/17 18:15 06/09/17 18:14 05/21/17 12:33 Amiodarone HCl (Cordarone) 200 mg DAILY GT 05/11/17 09:00 06/10/17 08:59 05/23/17 10:09 Ascorbic Acid (Vitamin C) 500 mg DAILY GT 05/17/17 13:57 06/13/17 08:59 05/23/17 10:08 Carvedilol (Coreg) 3.125 mg Q12HR GT 05/10/17 21:00 06/09/17 20:59 05/23/17 09:00 Colistimethate Sodium (Colistin *inhalation use only*) 150 mg Q12HR@10,22 INH 05/14/17 13:00 05/28/17 12:59 05/23/17 09:07 Dextrose (Dextrose 50%) STAT PRN IV Hypoglycemia 05/10/17 18:15 06/09/17 18:14 Furosemide (Lasix) 60 mg DAILY GT 05/11/17 09:00 06/10/17 08:59 05/23/17 10:09 Heparin Sodium (Porcine) (Heparin 5000 units/ml) 5,000 units EVERY 12 HOURS SUBQ 05/21/17 21:00 06/20/17 20:59 05/23/17 10:14 Levetiracetam (Keppra) 500 mg Q12HR GT 05/10/17 21:00 06/09/17 20:59 05/23/17 09:00 Lorazepam (Ativan 2mg/ml 1ml) 2 mg Q2H PRN IV For Anxiety 05/16/17 16:15 05/23/17 16:14 Meropenem/Sodium Chloride (Merrem/Sodium Chloride) 55 ml @ 110 mls/hr EVERY 8 HOURS IVPB 05/17/17 16:00 7/10/17 15:59 05/23/17 05:09 Morphine Sulfate (Morphine Sulfate) 4 mg Q4H PRN IVP Severe Pain (Pain Scale 7-10) 05/16/17 15:15 05/23/17 15:14 05/22/17 04:18 Ondansetron HCl (Zofran) 4 mg Q6H PRN IVP Nausea & Vomiting 05/10/17 18:15 06/09/17 18:14 Polyethylene Glycol (Miralax) 17 gm DAILYPRN PRN GT Constipation 05/17/17 13:57 06/09/17 18:14 Sodium Hypochlorite (Dakin's Half Strength) 1 applic DAILY TOPIC 05/22/17 09:00 06/21/17 08:59 05/23/17 09:00 Spironolactone 25 mg 25 mg DAILY GT 05/17/17 13:57 06/10/17 08:59 05/23/17 10:09 Tigecycline/ Dextrose (Tygacil/D5W) 110 ml @ 220 mls/hr EVERY 12 HOURS IVPB 05/14/17 23:00 05/28/17 22:59 05/23/17 10:17 ODETTE SMILEY May 23, 2017 11:55
[2017-05-23 12:00] VITALS: BP 88/61
--- NOTE | 2017-05-23 13:11 | Infectious Diseases Prog Note ---
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 leukocytosis decreased today after peak yesterday to 25, last low grade tempt to 100.1F 48 hrs ago although a bit diaphoretic today, CT a/p on 05/17 negative for abscess, and C diff PCR yesterday negative, and last blood cx on 05/17/17 negative. Receiving Dakin's to stage IV sacral decubitus for foul smell but no surrounding cellulitis. L ear auricle uninfected. Continue current therapy. 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 - SCx : MDR - ACB , KPC - CXR: Worsening atelectasis versus pneumonia right lung base - h/o Provid a+ XDR PSA and Providencia // Stage IV sacral decubitus, not grossly infected - surveillance WCx KPC and ACB, strep, CONS ( colonizer ) - h/o polymicrobial MDR colonization // HCV Ab+ - Abdominal ultrasound of liver : unremarkable // Probable sepsis, SP // Leukocytosis: persistent, worsening CT of C/A/P : No evidence of abscess , Pulmonary bibasal parenchymal consolidation // Low grade fever x1 , SP Severe anemia SP PRBCs Sinus tachycardia Chronic VDRF SP trach, PEG h/o cardiac arrest, anoxic encephalopathy Cardiomyopathy SP defibrillator placement Paroxysmal atrial fibrillation Cachexia / severe protein-calorie malnutrition [place] resident NKDA Full Code PLAN: continue IV Tygacil and inhaled Colistin d# , continue Merrem d# . complete all 3 on . ( 05/15 SP IV vancomycin, Zosyn d# 5 ) ( SP Merrem and Colistin INH d# ) ( 03/13 SP vancomycin and Zosyn d# 5 ) Monitor CBC, temperatures Monitor CMP Monitor CXR vent support, trach care, aspiration precautions wound care to stage IV sacral decub transfuse prn Subjective Allergies: Coded Allergies: No Known Allergies (Unverified , 03/07/17) Objective Vital Signs Last 24 Hour Vital Signs Date Time Temp Pulse Resp B/P Pulse Ox O2 Delivery O2 Flow Rate FiO2 05/23/17 12:00 107 05/23/17 11:17 22 40 05/23/17 09:18 133 16 100 Mechanical Ventilator 40 05/23/17 09:08 133 25 100 Mechanical Ventilator 40 05/23/17 09:05 133 25 40 05/23/17 09:00 133 124/76 05/23/17 08:00 99.3 129 22 124/77 100 Mechanical Ventilator 40 05/23/17 08:00 128 05/23/17 08:00 40 05/23/17 07:02 129 24 40 05/23/17 05:40 126 24 40 05/23/17 04:00 97.4 126 18 96/64 100 Mechanical Ventilator 40 05/23/17 04:00 128 05/23/17 04:00 40 05/23/17 02:45 131 23 40 05/23/17 01:00 120 21 40 05/23/17 00:00 12 05/23/17 00:00 40 05/23/17 00:00 97.8 124 18 105/76 100 Mechanical Ventilator 40 05/22/17 23:11 124 22 40 05/22/17 21:09 124 16 100 Mechanical Ventilator 40 05/22/17 20:59 125 23 100 Mechanical Ventilator 40 05/22/17 20:58 125 23 40 05/22/17 20:38 116 99/77 05/22/17 20:00 98.9 125 18 99/77 100 Mechanical Ventilator 40 05/22/17 20:00 40 05/22/17 20:00 123 05/22/17 18:45 122 22 40 05/22/17 16:44 113 23 40 05/22/17 16:00 40 05/22/17 16:00 99.9 112 23 99/54 100 05/22/17 16:00 110 05/22/17 15:28 109 22 40 Height (Feet): 5 Height (Inches): 7.00 Weight (Pounds): 126 General Appearance: cachetic, other - diaphoretic on face/head HEENT: other - L ear auricle posteriorly with soft tissue defect, receiving topical care, no surrounding erythema Cardiovascular: normal rate, regular rhythm Abdomen: other - soft, nt, nd, feeding tube in place, scaphoid Extremities: no edema Skin: no rash Microbiology Date/Time Source Procedure Growth Status 05/22/17 18:30 Stool Clostridium difficile Toxin Assay - Final Complete Laboratory Tests Test 05/23/17 05:35 White Blood Count 21.8 K/UL (4.8-10.8) H Red Blood Count 3.84 M/UL (4.70-6.10) L Hemoglobin 10.5 G/DL (14.2-18.0) L Hematocrit 34.7 % (42.0-52.0) L Mean Corpuscular Volume 90 FL (80-99) Mean Corpuscular Hemoglobin 27.3 PG (27.0-31.0) Mean Corpuscular Hemoglobin Concent 30.2 G/DL (32.0-36.0) L Red Cell Distribution Width 17.4 % (11.6-14.8) H Platelet Count 627 K/UL (150-450) H Mean Platelet Volume 6.4 FL (6.5-10.1) L Neutrophils (%) (Auto) % (45.0-75.0) Lymphocytes (%) (Auto) % (20.0-45.0) Monocytes (%) (Auto) % (1.0-10.0) Eosinophils (%) (Auto) % (0.0-3.0) Basophils (%) (Auto) % (0.0-2.0) Differential Total Cells Counted 100 Neutrophils % (Manual) 85 % (45-75) H Lymphocytes % (Manual) 12 % (20-45) L Monocytes % (Manual) 3 % (1-10) Eosinophils % (Manual) 0 % (0-3) Basophils % (Manual) 0 % (0-2) Band Neutrophils 0 % (0-8) Platelet Estimate Increased H Platelet Morphology Normal Hypochromasia 1+ Anisocytosis 1+ Sodium Level 155 mEQ/L (135-145) H Potassium Level 4.6 mEQ/L (3.4-4.9) Chloride Level 113 mEQ/L (98-107) H Carbon Dioxide Level 32 mEQ/L (20-30) H Anion Gap 10 (5-15) Blood Urea Nitrogen 51 mg/dL (7-23) H Creatinine 0.7 mg/dL (0.7-1.2) Estimat Glomerular Filtration Rate > 60 mL/min (>60) Glucose Level 133 mg/dL (74-106) H Calcium Level 8.8 mg/dL (8.6-10.2) Current Medications Medications (Trade) Dose Ordered Sig/Tameka Route PRN Reason Start Time Stop Time Status Last Admin Dose Admin Acetaminophen 650 mg 650 mg Q4H PRN ORAL FEVER 05/10/17 18:15 06/09/17 18:14 05/21/17 12:33 Amiodarone HCl (Cordarone) 200 mg DAILY GT 05/11/17 09:00 06/10/17 08:59 05/23/17 10:09 Ascorbic Acid (Vitamin C) 500 mg DAILY GT 05/17/17 13:57 06/13/17 08:59 05/23/17 10:08 Carvedilol (Coreg) 3.125 mg Q12HR GT 05/10/17 21:00 06/09/17 20:59 05/23/17 09:00 Colistimethate Sodium (Colistin *inhalation use only*) 150 mg Q12HR@10,22 INH 05/14/17 13:00 05/28/17 12:59 05/23/17 09:07 Dextrose (Dextrose 50%) STAT PRN IV Hypoglycemia 05/10/17 18:15 06/09/17 18:14 Furosemide (Lasix) 60 mg DAILY GT 05/11/17 09:00 06/10/17 08:59 05/23/17 10:09 Heparin Sodium (Porcine) (Heparin 5000 units/ml) 5,000 units EVERY 12 HOURS SUBQ 05/21/17 21:00 06/20/17 20:59 05/23/17 10:14 Levetiracetam (Keppra) 500 mg Q12HR GT 05/10/17 21:00 06/09/17 20:59 05/23/17 09:00 Lorazepam (Ativan 2mg/ml 1ml) 2 mg Q2H PRN IV For Anxiety 05/16/17 16:15 05/23/17 16:14 Meropenem/Sodium Chloride (Merrem/Sodium Chloride) 55 ml @ 110 mls/hr EVERY 8 HOURS IVPB 05/17/17 16:00 05/26/17 15:59 05/23/17 05:09 Morphine Sulfate (Morphine Sulfate) 4 mg Q4H PRN IVP Severe Pain (Pain Scale 7-10) 05/16/17 15:15 05/23/17 15:14 05/22/17 04:18 Ondansetron HCl (Zofran) 4 mg Q6H PRN IVP Nausea & Vomiting 05/10/17 18:15 06/09/17 18:14 Polyethylene Glycol (Miralax) 17 gm DAILYPRN PRN GT Constipation 05/17/17 13:57 06/09/17 18:14 Sodium Hypochlorite (Dakin's Half Strength) 1 applic DAILY TOPIC 05/22/17 09:00 06/21/17 08:59 05/23/17 09:00 Spironolactone 25 mg 25 mg DAILY GT 05/17/17 13:57 06/10/17 08:59 05/23/17 10:09 Tigecycline/ Dextrose (Tygacil/D5W) 110 ml @ 220 mls/hr EVERY 12 HOURS IVPB 05/14/17 23:00 05/28/17 22:59 05/23/17 10:17 Colby Friend M.D. May 23, 2017 13:11
[2017-05-23 16:00] VITALS: BP 81/45
[2017-05-23] MEDS ORDERED: Tubing IV Secondary IV ONE (16:51)
[2017-05-23] MEDS ORDERED: NS 275ml ONE (16:51)
[2017-05-23 19:59] VITALS: BP 114/62
[2017-05-24] VITALS (18 sets, daily range): BP systolic 91–135; BP diastolic 40–83
[2017-05-24] MEDS: Meropenem 500 MG in NS 55 ML IVPB SCH ×3 (05:04→21:54)
[2017-05-24 06:41] LABS: MEAN CORPUSCULAR HEMOGLOBIN 27.6 PG (27.0-31.0); MEAN CORPUSCULAR HGB CONC 30.4 G/DL (32.0-36.0); MEAN CORPUSCULAR VOLUME 91 FL (80-99); MEAN PLATELET VOLUME 6.1 FL (6.5-10.1); PLATELET COUNT 562 K/UL (150-450); RED BLOOD COUNT 3.98 M/UL (4.70-6.10); RED CELL DISTRIBUTION WIDTH 17.2 % (11.6-14.8); WHITE BLOOD COUNT 19.7 K/UL (4.8-10.8)
[2017-05-24 07:07] LABS: MAGNESIUM 2.1 mg/dL (1.7-2.5); PHOSPHORUS 3.1 mg/dL (2.5-4.8)
[2017-05-24 07:15] LABS: ALANINE AMINOTRANSFERASE 58 U/L (3-41); ALBUMIN/GLOBULIN RATIO 0.4 (1.0-2.7); ANION GAP 9 (5-15); ASPARTATE AMINO TRANSFERASE 63 U/L (5-40); CARBON DIOXIDE 30 mEQ/L (20-30); CHLORIDE 118 mEQ/L (98-107); CREATININE 0.8 mg/dL (0.7-1.2); GLOMERULAR FILTRATION RATE > 60 mL/min (>60); HEMOLYSIS 7; POTASSIUM 4.7 mEQ/L (3.4-4.9); SODIUM 157 mEQ/L (135-145)
[2017-05-24] MEDS ORDERED: Diltiazem 25mg/5ml IV ONE ×2 (07:50→08:55)
[2017-05-24 07:52] LABS: LYMPHOCYTES % (MANUAL) 10 % (20-45); NEUTROPHILS % (MANUAL) 79 % (45-75); TOTAL CELLS COUNTED 100
[2017-05-24 07:53] LABS: ANISOCYTOSIS 1+; BAND NEUTROPHILS % (MANUAL) 0 % (0-8); BASOPHILS % (MANUAL) 0 % (0-2); EOSINOPHILS % (MANUAL) 0 % (0-3); HYPOCHROMASIA 1+; PLATELET ESTIMATE INCREASED; PLATELET MORPHOLOGY NORMAL
[2017-05-24] MEDS: Colistin for inhalation INH SCH ×4 (08:45→11:00)
[2017-05-24] MEDS: Amiodarone 200mg tab GT SCH (09:01)
[2017-05-24] MEDS: Ascorbic Acid 500mg tab GT SCH (09:03)
[2017-05-24] MEDS: Heparin 5000 units/ml inj SUBQ SCH ×2 (09:04→20:47)
[2017-05-24] MEDS: levETIRAcetam 500mg/5ml Liquid GT SCH ×2 (09:04→20:46)
[2017-05-24] MEDS: Spironolactone 25mg tab GT SCH (09:07)
--- NOTE | 2017-05-24 10:00 | Pulmonology Progress Note ---
Assessment/Plan Problems: (1) Acute on chronic respiratory failure (2) Anemia (3) Right pulmonary infiltrate on CXR (4) Chronic respiratory acidosis (5) Feeding by G-tube (6) EF of 30 Assessment/Plan on cardizem drip continue antibiotics check cultures tolerating feeding Subjective ROS Limited/Unobtainable: No Allergies: Coded Allergies: No Known Allergies (Unverified , 03/07/17) Objective Last 24 Hour Vital Signs Date Time Temp Pulse Resp B/P Pulse Ox O2 Delivery O2 Flow Rate FiO2 05/24/17 09:11 143 27 100 Mechanical Ventilator 40 05/24/17 09:05 142 105/74 05/24/17 09:03 142 105/74 05/24/17 08:55 143 27 100 Mechanical Ventilator 40 05/24/17 08:55 143 27 40 05/24/17 08:10 141 05/24/17 08:00 40 05/24/17 08:00 99.2 142 20 105/74 99 Mechanical Ventilator 40 05/24/17 07:58 141 101/66 05/24/17 07:18 137 26 40 05/24/17 04:41 131 27 40 05/24/17 04:00 40 05/24/17 04:00 128 05/24/17 04:00 98.2 131 20 101/66 100 Mechanical Ventilator 40 05/24/17 02:45 127 27 40 05/24/17 00:30 122 26 40 05/24/17 00:00 98.3 120 20 100/73 100 Mechanical Ventilator 40 05/24/17 00:00 120 05/24/17 00:00 40 05/23/17 22:40 118 20 40 05/23/17 22:00 119 20 100 Mechanical Ventilator 40 05/23/17 21:49 119 25 100 Mechanical Ventilator 40 05/23/17 21:30 119 25 40 05/23/17 21:06 125 118/68 05/23/17 20:00 126 05/23/17 20:00 40 05/23/17 19:59 98.1 125 20 114/62 100 Mechanical Ventilator 40 05/23/17 18:55 126 24 40 05/23/17 16:54 118 23 40 05/23/17 16:00 118 05/23/17 16:00 97.9 118 25 81/45 100 Mechanical Ventilator 40 05/23/17 16:00 40 05/23/17 14:47 115 22 40 05/23/17 13:12 117 20 40 05/23/17 12:00 98.6 115 26 88/61 100 Mechanical Ventilator 40 05/23/17 12:00 40 05/23/17 12:00 107 05/23/17 11:17 125 22 40 Intake and Output 05/23/17 05/24/17 19:00 07:00 Intake Total 980 ml 880 ml Output Total 810 ml 1250 ml Balance 170 ml -370 ml Intake Free Water 200 ml 100 ml Tube Feeding 780 ml 780 ml Output Urine Total 800 ml 1100 ml Stool Total 10 ml 150 ml # Bowel Movements 3 3 General Appearance: cachetic HEENT: normocephalic, atraumatic, anicteric Respiratory/Chest: chest wall non-tender, lungs clear Cardiovascular: normal peripheral pulses, normal rate Abdomen: normal bowel sounds Genitourinary: normal external genitalia Skin: no rash Microbiology Date/Time Source Procedure Growth Status 05/22/17 18:30 Stool Clostridium difficile Toxin Assay - Final Complete Laboratory Tests 05/24/17 05:59: White Blood Count 19.7H, Red Blood Count 3.98L, Hemoglobin 11.0L, Hematocrit 36.1L, Mean Corpuscular Volume 91, Mean Corpuscular Hemoglobin 27.6, Mean Corpuscular Hemoglobin Concent 30.4L, Red Cell Distribution Width 17.2H, Platelet Count 562H, Mean Platelet Volume 6.1L, Neutrophils (%) (Auto) , Lymphocytes (%) (Auto) , Monocytes (%) (Auto) , Eosinophils (%) (Auto) , Basophils (%) (Auto) , Differential Total Cells Counted 100, Neutrophils % ( Manual) 79H, Lymphocytes % (Manual) 10L, Monocytes % (Manual) 11H, Eosinophils % (Manual) 0, Basophils % (Manual) 0, Band Neutrophils 0, Platelet Estimate IncreasedH, Platelet Morphology Normal, Hypochromasia 1+, Anisocytosis 1+, Sodium Level 157H, Potassium Level 4.7, Chloride Level 118H, Carbon Dioxide Level 30, Anion Gap 9, Blood Urea Nitrogen 58H, Creatinine 0.8, Estimat Glomerular Filtration Rate > 60, Glucose Level 136H, Calcium Level 9.0, Phosphorus Level 3.1, Magnesium Level 2.1, Total Bilirubin 0.3, Aspartate Amino Transf (AST/SGOT) 63H, Alanine Aminotransferase (ALT/SGPT) 58H, Alkaline Phosphatase 185H, Total Protein 8.0, Albumin 2.4L, Globulin 5.6, Albumin/ Globulin Ratio 0.4L Current Medications Medications (Trade) Dose Ordered Sig/Tameka Route PRN Reason Start Time Stop Time Status Last Admin Dose Admin Acetaminophen 650 mg 650 mg Q4H PRN ORAL FEVER 05/10/17 18:15 06/09/17 18:14 05/21/17 12:33 Amiodarone HCl (Cordarone) 200 mg DAILY GT 05/11/17 09:00 06/10/17 08:59 05/24/17 09:01 Ascorbic Acid (Vitamin C) 500 mg DAILY GT 05/17/17 13:57 06/13/17 08:59 05/24/17 09:03 Carvedilol (Coreg) 3.125 mg Q12HR GT 05/10/17 21:00 06/09/17 20:59 05/24/17 09:03 Colistimethate Sodium (Colistin *inhalation use only*) 150 mg Q12HR@10,22 INH 05/14/17 13:00 05/28/17 12:59 05/24/17 08:55 Dextrose (Dextrose 50%) STAT PRN IV Hypoglycemia 05/10/17 18:15 06/09/17 18:14 Diltiazem HCl/ Dextrose (Cardizem/D5W) 125 ml @ 0 mls/hr Q24H IV 05/24/17 10:00 05/25/17 09:59 UNV Furosemide (Lasix) 60 mg DAILY GT 05/11/17 09:00 06/10/17 08:59 05/24/17 09:04 Heparin Sodium (Porcine) (Heparin 5000 units/ml) 5,000 units EVERY 12 HOURS SUBQ 05/21/17 21:00 06/20/17 20:59 05/24/17 09:04 Levetiracetam (Keppra) 500 mg Q12HR GT 05/10/17 21:00 06/09/17 20:59 05/24/17 09:04 Meropenem/Sodium Chloride (Merrem/Sodium Chloride) 55 ml @ 110 mls/hr EVERY 8 HOURS IVPB 05/17/17 16:00 05/26/17 15:59 05/24/17 05:04 Ondansetron HCl (Zofran) 4 mg Q6H PRN IVP Nausea & Vomiting 05/10/17 18:15 06/09/17 18:14 Polyethylene Glycol (Miralax) 17 gm DAILYPRN PRN GT Constipation 05/17/17 13:57 06/09/17 18:14 Sodium Hypochlorite 1 applic 1 applic DAILY TOPIC 05/22/17 09:00 06/21/17 08:59 05/23/17 09:00 Spironolactone 25 mg 25 mg DAILY GT 05/17/17 13:57 06/10/17 08:59 05/24/17 09:07 Tigecycline/ Dextrose (Tygacil/D5W) 110 ml @ 220 mls/hr EVERY 12 HOURS IVPB 05/14/17 23:00 05/28/17 22:59 05/23/17 21:05 ODETTE SMILEY May 24, 2017 10:00
[2017-05-24] MEDS ORDERED: Miralax 17gm pkt GT PRN (10:15)
[2017-05-24] MEDS: Tigecycline 50 MG in D5W 110 ML IVPB SCH ×2 (11:05→20:48)
--- NOTE | 2017-05-24 12:37 | General Progress Note ---
Assessment/Plan Problem List: (1) EF of 30 (2) Anemia ICD Codes: D64.9 - Anemia, unspecified SNOMED: 853659396 Qualifiers: Qualified Codes: D64.9 - Anemia, unspecified (3) Transaminitis ICD Codes: R74.0 - Nonspecific elevation of levels of transaminase and lactic acid dehydrogenase [LDH] SNOMED: 251206467 (4) Leukocytosis ICD Codes: D72.829 - Elevated white blood cell count, unspecified SNOMED: 811196961, 371073022 (5) Acute on chronic respiratory failure ICD Codes: J96.20 - Acute and chronic respiratory failure, unspecified whether with hypoxia or hypercapnia SNOMED: 89493263, 38019145 (6) Feeding by G-tube ICD Codes: Z93.1 - Gastrostomy status SNOMED: 164365878, 034368033 Assessment/Plan occult blood stool >> negative x 2 stable H&H, transfuse prn GTF PPI for GI prophylaxis abx fu labs Subjective ROS Limited/Unobtainable: No Allergies: Coded Allergies: No Known Allergies (Unverified , 03/07/17) Subjective transfered to icu for tachycardia Objective Last 24 Hour Vital Signs Date Time Temp Pulse Resp B/P Pulse Ox O2 Delivery O2 Flow Rate FiO2 05/24/17 12:00 125 05/24/17 12:00 126 20 97/68 99 Mechanical Ventilator 40 05/24/17 12:00 40 05/24/17 11:03 123 97/64 05/24/17 11:00 121 19 91/62 99 Mechanical Ventilator 40 05/24/17 10:58 123 26 40 05/24/17 10:00 99.0 118 20 97/64 99 Mechanical Ventilator 40 05/24/17 09:11 143 27 100 Mechanical Ventilator 40 05/24/17 09:05 142 105/74 05/24/17 09:03 142 105/74 05/24/17 08:55 143 27 100 Mechanical Ventilator 40 05/24/17 08:55 143 27 40 05/24/17 08:10 141 05/24/17 08:00 40 05/24/17 08:00 99.2 142 20 105/74 99 Mechanical Ventilator 40 05/24/17 07:58 141 101/66 05/24/17 07:18 137 26 40 05/24/17 04:41 131 27 40 05/24/17 04:00 40 05/24/17 04:00 128 05/24/17 04:00 98.2 131 20 101/66 100 Mechanical Ventilator 40 05/24/17 02:45 127 27 40 05/24/17 00:30 122 26 40 05/24/17 00:00 98.3 120 20 100/73 100 Mechanical Ventilator 40 05/24/17 00:00 120 05/24/17 00:00 40 05/23/17 22:40 118 20 40 05/23/17 22:00 119 20 100 Mechanical Ventilator 40 05/23/17 21:49 119 25 100 Mechanical Ventilator 40 05/23/17 21:30 119 25 40 05/23/17 21:06 125 118/68 05/23/17 20:00 126 05/23/17 20:00 40 05/23/17 19:59 98.1 125 20 114/62 100 Mechanical Ventilator 40 05/23/17 18:55 126 24 40 05/23/17 16:54 118 23 40 05/23/17 16:00 118 05/23/17 16:00 97.9 118 25 81/45 100 Mechanical Ventilator 40 05/23/17 16:00 40 05/23/17 14:47 115 22 40 05/23/17 13:12 117 20 40 Intake and Output 05/23/17 05/24/17 19:00 07:00 Intake Total 980 ml 945 ml Output Total 810 ml 1250 ml Balance 170 ml -305 ml Intake Free Water 200 ml 100 ml Tube Feeding 780 ml 845 ml Output Urine Total 800 ml 1100 ml Stool Total 10 ml 150 ml # Bowel Movements 3 3 Laboratory Tests 05/24/17 05:59: White Blood Count 19.7H, Red Blood Count 3.98L, Hemoglobin 11.0L, Hematocrit 36.1L, Mean Corpuscular Volume 91, Mean Corpuscular Hemoglobin 27.6, Mean Corpuscular Hemoglobin Concent 30.4L, Red Cell Distribution Width 17.2H, Platelet Count 562H, Mean Platelet Volume 6.1L, Neutrophils (%) (Auto) , Lymphocytes (%) (Auto) , Monocytes (%) (Auto) , Eosinophils (%) (Auto) , Basophils (%) (Auto) , Differential Total Cells Counted 100, Neutrophils % ( Manual) 79H, Lymphocytes % (Manual) 10L, Monocytes % (Manual) 11H, Eosinophils % (Manual) 0, Basophils % (Manual) 0, Band Neutrophils 0, Platelet Estimate IncreasedH, Platelet Morphology Normal, Hypochromasia 1+, Anisocytosis 1+, Sodium Level 157H, Potassium Level 4.7, Chloride Level 118H, Carbon Dioxide Level 30, Anion Gap 9, Blood Urea Nitrogen 58H, Creatinine 0.8, Estimat Glomerular Filtration Rate > 60, Glucose Level 136H, Calcium Level 9.0, Phosphorus Level 3.1, Magnesium Level 2.1, Total Bilirubin 0.3, Aspartate Amino Transf (AST/SGOT) 63H, Alanine Aminotransferase (ALT/SGPT) 58H, Alkaline Phosphatase 185H, Total Protein 8.0, Albumin 2.4L, Globulin 5.6, Albumin/ Globulin Ratio 0.4L Height (Feet): 5 Height (Inches): 7.00 Weight (Pounds): 126 General Appearance: lethargic, confused EENT: normal ENT inspection Neck: supple Cardiovascular: normal rate Respiratory/Chest: decreased breath sounds Abdomen: normal bowel sounds, non tender, soft Extremities: non-tender JESSICA JIN May 24, 2017 12:37
--- NOTE | 2017-05-24 13:25 | Infectious Diseases Prog Note ---
Assessment/Plan Assessment/Plan ASSESSMENT: 57 y/o male with on tigecycline, colistin, and meropenem for recurrent HCAP/VAP with MDR-ACB and KPC. leukocytosis continues to decline over the past 48 hrs vs prior peak to 25 on 05/22 now <20, last low grade temp to 100.1F 72 hrs ago,, CT a/p on 05/17 negative for abscess, and C diff PCR 05/22 negative, and last blood cx on 05/17/17 negative. Had been receiving Dakin's in [place] and topical care to stage IV sacral decubitus for foul smell but no surrounding cellulitis. L ear auricle uninfected. Continue current therapy. // recurrent HCAP / VAP - SCx : MDR - ACB , KPC - CXR: Worsening atelectasis versus pneumonia right lung base - h/o Provid a+ XDR PSA and Providencia // Stage IV sacral decubitus, not grossly infected - surveillance WCx KPC and ACB, strep, CONS ( colonizer ) - h/o polymicrobial MDR colonization // HCV Ab+ - Abdominal ultrasound of liver : unremarkable // Probable sepsis, SP // Leukocytosis: persistent, improving CT of C/A/P : No evidence of abscess , Pulmonary bibasal parenchymal consolidation // Low grade fever x1 , SP Severe anemia SP PRBCs Sinus tachycardia Chronic VDRF SP trach, PEG h/o cardiac arrest, anoxic encephalopathy Cardiomyopathy SP defibrillator placement Paroxysmal atrial fibrillation Cachexia / severe protein-calorie malnutrition [place] resident NKDA Full Code PLAN: continue IV Tygacil and inhaled Colistin d# , continue Merrem d# / . complete all 3 on . ( 05/15 SP IV vancomycin, Zosyn d# 5 ) ( SP Merrem and Colistin INH d# ) ( 03/13 SP vancomycin and Zosyn d# 5 ) Monitor CBC, temperatures Monitor CMP Monitor CXR vent support, trach care, aspiration precautions wound care to stage IV sacral decub transfuse prn Subjective Allergies: Coded Allergies: No Known Allergies (Unverified , 03/07/17) Subjective Transferred to ICU for tachycardia requiring diltiazem gtt. Objective Vital Signs Last 24 Hour Vital Signs Date Time Temp Pulse Resp B/P Pulse Ox O2 Delivery O2 Flow Rate FiO2 05/24/17 13:00 127 20 98/66 99 Mechanical Ventilator 40 05/24/17 12:30 124 20 97/67 99 Mechanical Ventilator 40 05/24/17 12:00 125 05/24/17 12:00 126 20 97/68 99 Mechanical Ventilator 40 05/24/17 12:00 40 05/24/17 11:03 123 97/64 05/24/17 11:00 121 19 91/62 99 Mechanical Ventilator 40 05/24/17 10:58 123 26 40 05/24/17 10:00 99.0 118 20 97/64 99 Mechanical Ventilator 40 05/24/17 09:11 143 27 100 Mechanical Ventilator 40 05/24/17 09:05 142 105/74 05/24/17 09:03 142 105/74 05/24/17 08:55 143 27 100 Mechanical Ventilator 40 05/24/17 08:55 143 27 40 05/24/17 08:10 141 05/24/17 08:00 40 05/24/17 08:00 99.2 142 20 105/74 99 Mechanical Ventilator 40 05/24/17 07:58 141 101/66 05/24/17 07:18 137 26 40 05/24/17 04:41 131 27 40 05/24/17 04:00 40 05/24/17 04:00 128 05/24/17 04:00 98.2 131 20 101/66 100 Mechanical Ventilator 40 05/24/17 02:45 127 27 40 05/24/17 00:30 122 26 40 05/24/17 00:00 98.3 120 20 100/73 100 Mechanical Ventilator 40 05/24/17 00:00 120 05/24/17 00:00 40 05/23/17 22:40 118 20 40 05/23/17 22:00 119 20 100 Mechanical Ventilator 40 05/23/17 21:49 119 25 100 Mechanical Ventilator 40 05/23/17 21:30 119 25 40 05/23/17 21:06 125 118/68 05/23/17 20:00 126 05/23/17 20:00 40 05/23/17 19:59 98.1 125 20 114/62 100 Mechanical Ventilator 40 05/23/17 18:55 126 24 40 05/23/17 16:54 118 23 40 05/23/17 16:00 118 05/23/17 16:00 97.9 118 25 81/45 100 Mechanical Ventilator 40 05/23/17 16:00 40 05/23/17 14:47 115 22 40 Height (Feet): 5 Height (Inches): 7.00 Weight (Pounds): 126 General Appearance: no acute distress HEENT: anicteric Respiratory/Chest: rhonchi - bilaterally Cardiovascular: tachycardia Abdomen: normal bowel sounds, soft, non tender, non distended, other - scaphoid , cachectic Genitourinary: normal external genitalia, other - tierney in place Extremities: no edema Skin: other - med photos of Stage IV sacral decubitus ulcer reviewed with large fibrinious debris in the center Microbiology Date/Time Source Procedure Growth Status 05/22/17 18:30 Stool Clostridium difficile Toxin Assay - Final Complete Laboratory Tests Test 05/24/17 05:59 White Blood Count 19.7 K/UL (4.8-10.8) H Red Blood Count 3.98 M/UL (4.70-6.10) L Hemoglobin 11.0 G/DL (14.2-18.0) L Hematocrit 36.1 % (42.0-52.0) L Mean Corpuscular Volume 91 FL (80-99) Mean Corpuscular Hemoglobin 27.6 PG (27.0-31.0) Mean Corpuscular Hemoglobin Concent 30.4 G/DL (32.0-36.0) L Red Cell Distribution Width 17.2 % (11.6-14.8) H Platelet Count 562 K/UL (150-450) H Mean Platelet Volume 6.1 FL (6.5-10.1) L Neutrophils (%) (Auto) % (45.0-75.0) Lymphocytes (%) (Auto) % (20.0-45.0) Monocytes (%) (Auto) % (1.0-10.0) Eosinophils (%) (Auto) % (0.0-3.0) Basophils (%) (Auto) % (0.0-2.0) Differential Total Cells Counted 100 Neutrophils % (Manual) 79 % (45-75) H Lymphocytes % (Manual) 10 % (20-45) L Monocytes % (Manual) 11 % (1-10) H Eosinophils % (Manual) 0 % (0-3) Basophils % (Manual) 0 % (0-2) Band Neutrophils 0 % (0-8) Platelet Estimate Increased H Platelet Morphology Normal Hypochromasia 1+ Anisocytosis 1+ Sodium Level 157 mEQ/L (135-145) H Potassium Level 4.7 mEQ/L (3.4-4.9) Chloride Level 118 mEQ/L (98-107) H Carbon Dioxide Level 30 mEQ/L (20-30) Anion Gap 9 (5-15) Blood Urea Nitrogen 58 mg/dL (7-23) H Creatinine 0.8 mg/dL (0.7-1.2) Estimat Glomerular Filtration Rate > 60 mL/min (>60) Glucose Level 136 mg/dL (74-106) H Calcium Level 9.0 mg/dL (8.6-10.2) Phosphorus Level 3.1 mg/dL (2.5-4.8) Magnesium Level 2.1 mg/dL (1.7-2.5) Total Bilirubin 0.3 mg/dL (0.0-1.2) Aspartate Amino Transf (AST/SGOT) 63 U/L (5-40) H Alanine Aminotransferase (ALT/SGPT) 58 U/L (3-41) H Alkaline Phosphatase 185 U/L (40-129) H Total Protein 8.0 g/dL (6.6-8.7) Albumin 2.4 g/dL (3.5-5.2) L Globulin 5.6 g/dL Albumin/Globulin Ratio 0.4 (1.0-2.7) L Current Medications Medications (Trade) Dose Ordered Sig/Tameka Route PRN Reason Start Time Stop Time Status Last Admin Dose Admin Acetaminophen (Tylenol) 650 mg Q4H PRN ORAL FEVER 05/24/17 10:15 06/23/17 10:14 Amiodarone HCl (Cordarone) 200 mg DAILY GT 05/25/17 09:00 06/24/17 08:59 Ascorbic Acid (Vitamin C) 500 mg DAILY GT 05/25/17 09:00 06/24/17 08:59 Carvedilol (Coreg) 3.125 mg Q12HR GT 05/24/17 21:00 06/23/17 20:59 Colistimethate Sodium (Colistin *inhalation use only*) 150 mg Q12HR@10,22 INH 05/24/17 11:00 05/31/17 10:59 Dextrose (Dextrose 50%) STAT PRN IV Hypoglycemia 05/24/17 10:15 06/23/17 10:14 Diltiazem HCl 125 mg/Dextrose 125 ml @ 0 mls/hr Q24H IV 05/24/17 11:00 06/23/17 10:59 05/24/17 11:03 Furosemide (Lasix) 60 mg DAILY GT 05/25/17 09:00 06/24/17 08:59 Heparin Sodium (Porcine) (Heparin 5000 units/ml) 5,000 units EVERY 12 HOURS SUBQ 05/24/17 21:00 06/23/17 20:59 Levetiracetam (Keppra) 500 mg Q12HR GT 05/24/17 21:00 06/23/17 20:59 Meropenem 500 mg/ Sodium Chloride 55 ml @ 110 mls/hr EVERY 8 HOURS IVPB 05/24/17 14:00 05/29/17 13:59 Ondansetron HCl (Zofran) 4 mg Q6H PRN IVP Nausea & Vomiting 05/24/17 10:15 06/23/17 10:14 Polyethylene Glycol (Miralax) 17 gm DAILYPRN PRN GT Constipation 05/24/17 10:15 06/23/17 10:14 Sodium Hypochlorite (Dakin's Half Strength) 1 applic DAILY TOPIC 05/25/17 09:00 06/24/17 08:59 Spironolactone (Aldactone) 25 mg DAILY GT 05/25/17 09:00 06/24/17 08:59 Tigecycline/ Dextrose (Tygacil/D5W) 110 ml @ 220 mls/hr EVERY 12 HOURS IVPB 05/24/17 11:00 05/31/17 10:59 05/24/17 11:05 Colby Friend M.D. May 24, 2017 13:25
--- NOTE | 2017-05-24 16:28 | Consultation ---
Consult Note Consult Note Cardiology for Dr. Casey #[id number] WOODY BROWN May 24, 2017 16:28
[2017-05-24] MEDS ORDERED: Digoxin 0.5mg/2ml Inj IVP ONE (16:30)
[2017-05-24] MEDS: Pantoprazole Inj IVP SCH (20:46)
--- NOTE | 2017-05-24 21:53 | Pulmonolgy Critical Care Note ---
Critical Care - Objective Last 24 Hour Vital Signs Date Time Temp Pulse Resp B/P Pulse Ox O2 Delivery O2 Flow Rate FiO2 05/24/17 21:18 113 23 40 05/24/17 21:00 107 19 110/72 100 Mechanical Ventilator 40 05/24/17 20:45 120 135/83 05/24/17 20:00 40 05/24/17 20:00 98.3 120 22 135/83 100 Mechanical Ventilator 40 05/24/17 19:10 117 24 40 05/24/17 19:00 116 19 129/83 100 Mechanical Ventilator 40 05/24/17 18:00 117 19 132/72 100 Mechanical Ventilator 40 05/24/17 17:13 118 24 40 05/24/17 17:00 117 19 103/69 100 Mechanical Ventilator 40 05/24/17 16:56 97.6 05/24/17 16:36 119 05/24/17 16:00 130 05/24/17 16:00 40 05/24/17 16:00 97.6 124 20 97/60 100 Mechanical Ventilator 40 05/24/17 15:17 124 25 40 05/24/17 15:00 127 19 98/40 100 Mechanical Ventilator 40 05/24/17 14:00 127 20 94/55 99 Mechanical Ventilator 40 05/24/17 13:00 127 20 98/66 99 Mechanical Ventilator 40 05/24/17 12:38 126 26 40 05/24/17 12:30 124 20 97/67 99 Mechanical Ventilator 40 05/24/17 12:00 125 05/24/17 12:00 126 20 97/68 99 Mechanical Ventilator 40 05/24/17 12:00 40 05/24/17 11:03 123 97/64 05/24/17 11:00 121 19 91/62 99 Mechanical Ventilator 40 05/24/17 10:58 123 26 40 05/24/17 10:00 99.0 118 20 97/64 99 Mechanical Ventilator 40 05/24/17 09:11 143 27 100 Mechanical Ventilator 40 05/24/17 09:05 142 105/74 05/24/17 09:03 142 105/74 05/24/17 08:55 143 27 100 Mechanical Ventilator 40 05/24/17 08:55 143 27 40 05/24/17 08:10 141 05/24/17 08:00 40 05/24/17 08:00 99.2 142 20 105/74 99 Mechanical Ventilator 40 05/24/17 07:58 141 101/66 05/24/17 07:18 137 26 40 05/24/17 04:41 131 27 40 05/24/17 04:00 40 05/24/17 04:00 128 05/24/17 04:00 98.2 131 20 101/66 100 Mechanical Ventilator 40 05/24/17 02:45 127 27 40 05/24/17 00:30 122 26 40 05/24/17 00:00 98.3 120 20 100/73 100 Mechanical Ventilator 40 05/24/17 00:00 120 05/24/17 00:00 40 05/23/17 22:40 118 20 40 05/23/17 22:00 119 20 100 Mechanical Ventilator 40 Micro: Microbiology Date/Time Source Procedure Growth Status 05/22/17 18:30 Stool Clostridium difficile Toxin Assay - Final Complete Critical Care - Subjective FI02: 40 Vent Support Breath Rate: 16 Vent Support Mode: AC Vent Tidal Volume: 450 Sputum Amount: Scant PEEP: 0.0 PIP: 7 Tube Feeding Amount: 65 I&O: Intake and Output 05/23/17 05/24/17 19:00 07:00 Intake Total 980 ml 945 ml Output Total 810 ml 1250 ml Balance 170 ml -305 ml Intake Free Water 200 ml 100 ml Tube Feeding 780 ml 845 ml Output Urine Total 800 ml 1100 ml Stool Total 10 ml 150 ml # Bowel Movements 3 3 ODETTE SMILEY May 24, 2017 21:53
[2017-05-25] VITALS (18 sets, daily range): BP systolic 98–133; BP diastolic 69–86
--- NOTE | 2017-05-25 02:45 | Consultation ---
DATE OF CONSULTATION: 05/24/2017 CARDIOLOGY CONSULTATION This is in coverage for Dr. Casey. HISTORY OF PRESENT ILLNESS: History is obtained from the chart and treating providers, as the patient is unable to give any history. The patient is a 57-year-old, man with a history of cardiomyopathy with ejection fraction of 30% to 35%, status post ICD placement, paroxysmal atrial fibrillation, hepatitis C, anoxic encephalopathy with chronic respiratory failure, status post tracheostomy and gastrostomy. He was brought by paramedics to the hospital on 05/11/2017 with tachycardia and noted to be with sinus tachycardia to the 140s. He was anemic and septic. He has been treated on telemetry with antibiotics for a stage IV sacral decubitus ulcer, white blood count and fevers had been improving. However, today he developed atrial fibrillation with rapid ventricular rates and was transferred to the intensive care unit. Cardiology evaluation was requested. PAST MEDICAL HISTORY: As noted above. MEDICATIONS: Currently, amiodarone 200 mg daily per G-tube, vitamin C 500 mg daily, Lasix 60 mg daily, Aldactone 25 mg daily, Coreg 3.125 mg q.12 hours, subcutaneous heparin 5000 units q.12 hours, Keppra 500 mg q.12 hours, Protonix 40 mg q.12 hours, meropenem 500 mg IV q.8 hours, diltiazem infusion 2.5 mg/h, tigecycline 50 mg IV q.12 hours, MiraLAX p.r.n. and Zofran p.r.n. ALLERGIES: No known drug allergies. SOCIAL HISTORY: Not obtainable from the patient or chart. REVIEW OF SYSTEMS: Not obtainable from the patient or chart. PHYSICAL EXAMINATION: VITAL SIGNS: Blood pressure is 97/60, pulse is 124 irregularly irregular, respirations 20, and afebrile. GENERAL: The patient is cachectic, male, who is not responsive on the ventilator. HEENT: Normocephalic and atraumatic. Pupils are equal, round, and reactive to light. Sclerae anicteric. NECK: Supple. The tracheostomy site is clean. LUNGS: Bilateral scattered rhonchi. HEART: Tachycardic. Irregularly regular S1 and S2 with no murmurs or S3. ABDOMEN: Soft and nondistended. Gastrostomy tube in place. Site clean. EXTREMITIES: No cyanosis, clubbing, or edema. SKIN: Photos of stage IV sacral decubitus ulcer. NEUROLOGIC: Unable to test due to patient inability to cooperate with exam. LABORATORY AND DIAGNOSTIC DATA: White blood count 19,700, hemoglobin 11, hematocrit 36, and platelets 562,000. Sodium 157, potassium 4.7, chloride 118, bicarbonate 30, BUN 58, and creatinine 0.8. EKG from 05/10/2017 shows sinus tachycardia rate of 110 beats per minute, axis +60 degrees, occasional premature ventricular complexes. Repeat EKG is pending. Current telemetry shows atrial fibrillation with ventricular rate of 120 to 130 beats per minute. Chest x-ray shows an ICD dual-chamber with leads entering from the left to the right atrium and right ventricle and mild cephalization. ASSESSMENT AND RECOMMENDATIONS: The patient is a 57-year-old man with multiple chronic medical problems who was seen with atrial fibrillation with rapid ventricular rate, which developed today while hospitalized for sepsis. He also has respiratory failure, chronic anoxic encephalopathy and is dependent on tracheostomy and percutaneous endoscopic gastrostomy. I will increase amiodarone and give one dose of digoxin to attempt to better control the ventricular rate. We will discuss anticoagulation with his primary physician. It is unclear what his baseline functional status is. However, currently he is dependent for all ADLs and functional level. We will discuss anticoagulation with his primary physician, however, functional status may be too low at this point and comorbidities with risk of bleeding complications is increased. Rachel Wallace M.D. DR: ALISSON JOB#: [id number] CC:
[2017-05-25 05:19] LABS: MEAN CORPUSCULAR HEMOGLOBIN 27.2 PG (27.0-31.0); MEAN CORPUSCULAR HGB CONC 29.7 G/DL (32.0-36.0); MEAN CORPUSCULAR VOLUME 92 FL (80-99); MEAN PLATELET VOLUME 6.9 FL (6.5-10.1); PLATELET COUNT 545 K/UL (150-450); RED BLOOD COUNT 3.82 M/UL (4.70-6.10); RED CELL DISTRIBUTION WIDTH 17.9 % (11.6-14.8)
[2017-05-25 05:29] LABS: ALANINE AMINOTRANSFERASE 49 U/L (3-41); ALBUMIN/GLOBULIN RATIO 0.4 (1.0-2.7); ANION GAP 10 (5-15); ASPARTATE AMINO TRANSFERASE 41 U/L (5-40); CALCIUM 8.7 mg/dL (8.6-10.2); CARBON DIOXIDE 31 mEQ/L (20-30); CHLORIDE 116 mEQ/L (98-107); CREATININE 0.9 mg/dL (0.7-1.2); GLOMERULAR FILTRATION RATE > 60 mL/min (>60); HEMOLYSIS 7; POTASSIUM 4.1 mEQ/L (3.4-4.9); SODIUM 157 mEQ/L (135-145); TOTAL PROTEIN 7.6 g/dL (6.6-8.7)
[2017-05-25 05:41] LABS: WHITE BLOOD COUNT 22.7 K/UL (4.8-10.8)
[2017-05-25] MEDS: Meropenem 500 MG in NS 55 ML IVPB SCH ×3 (05:57→22:09)
[2017-05-25] MEDS ORDERED: Amiodarone 200mg tab GT SCH ×2 (06:30→09:00)
[2017-05-25 08:34] LABS: ANISOCYTOSIS 1+; BAND NEUTROPHILS % (MANUAL) 0 % (0-8); BASOPHILS % (MANUAL) 0 % (0-2); EOSINOPHILS % (MANUAL) 0 % (0-3); HYPOCHROMASIA 1+; LYMPHOCYTES % (MANUAL) 18 % (20-45); NEUTROPHILS % (MANUAL) 78 % (45-75); PLATELET ESTIMATE INCREASED; PLATELET MORPHOLOGY NORMAL; TOTAL CELLS COUNTED 100
[2017-05-25] MEDS: Colistin for inhalation INH SCH ×2 (08:53→21:44)
[2017-05-25] MEDS ORDERED: Dakin's 0.25% (Half Strength) 16oz TOPIC SCH (09:00)
[2017-05-25] MEDS ORDERED: Ascorbic Acid 500mg tab GT SCH (09:00)
[2017-05-25] MEDS ORDERED: Spironolactone 25mg tab GT SCH (09:00)
--- NOTE | 2017-05-25 09:09 | General Progress Note ---
Assessment/Plan Problem List: (1) EF of 30 (2) Anemia ICD Codes: D64.9 - Anemia, unspecified SNOMED: 560498273 Qualifiers: Qualified Codes: D64.9 - Anemia, unspecified (3) Transaminitis ICD Codes: R74.0 - Nonspecific elevation of levels of transaminase and lactic acid dehydrogenase [LDH] SNOMED: 822991583 (4) Leukocytosis ICD Codes: D72.829 - Elevated white blood cell count, unspecified SNOMED: 099468936, 925332738 (5) Acute on chronic respiratory failure ICD Codes: J96.20 - Acute and chronic respiratory failure, unspecified whether with hypoxia or hypercapnia SNOMED: 14825483, 16229026 (6) Feeding by G-tube ICD Codes: Z93.1 - Gastrostomy status SNOMED: 987093723, 736201944 Assessment/Plan occult blood stool >> negative x 2 stable H&H, transfuse prn GTF PPI for GI prophylaxis abx fu labs Subjective ROS Limited/Unobtainable: No Allergies: Coded Allergies: No Known Allergies (Unverified , 03/07/17) Subjective transfered to icu for tachycardia Objective Last 24 Hour Vital Signs Date Time Temp Pulse Resp B/P Pulse Ox O2 Delivery O2 Flow Rate FiO2 05/25/17 08:56 109 17 40 05/25/17 08:00 113 05/25/17 07:00 111 22 105/76 100 Mechanical Ventilator 40 05/25/17 06:42 109 20 40 05/25/17 06:00 113 22 108/70 100 Mechanical Ventilator 40 05/25/17 05:16 111 22 40 05/25/17 05:00 110 22 130/74 100 Mechanical Ventilator 40 05/25/17 04:00 98.3 103 24 127/73 100 Mechanical Ventilator 40 05/25/17 04:00 108 05/25/17 04:00 40 05/25/17 03:05 106 22 40 05/25/17 03:00 108 22 122/71 100 Mechanical Ventilator 40 05/25/17 02:00 95 20 127/73 100 Mechanical Ventilator 40 05/25/17 01:16 98.6 05/25/17 01:09 104 19 40 05/25/17 01:00 107 20 133/86 100 Mechanical Ventilator 40 05/25/17 00:00 40 05/25/17 00:00 114 05/25/17 00:00 98.6 112 20 120/76 100 Mechanical Ventilator 40 05/24/17 23:18 Mechanical Ventilator 05/24/17 23:17 108 21 40 05/24/17 23:17 Mechanical Ventilator 05/24/17 23:00 106 20 129/79 100 Mechanical Ventilator 40 05/24/17 22:00 103 19 121/75 100 Mechanical Ventilator 40 05/24/17 21:18 113 23 40 05/24/17 21:00 107 19 110/72 100 Mechanical Ventilator 40 05/24/17 20:45 120 135/83 05/24/17 20:00 40 05/24/17 20:00 120 05/24/17 20:00 98.3 120 22 135/83 100 Mechanical Ventilator 40 05/24/17 19:10 117 24 40 05/24/17 19:00 116 19 129/83 100 Mechanical Ventilator 40 05/24/17 18:00 117 19 132/72 100 Mechanical Ventilator 40 05/24/17 17:13 118 24 40 05/24/17 17:00 117 19 103/69 100 Mechanical Ventilator 40 05/24/17 16:36 119 05/24/17 16:00 130 05/24/17 16:00 40 05/24/17 16:00 97.6 124 20 97/60 100 Mechanical Ventilator 40 05/24/17 15:17 124 25 40 05/24/17 15:00 127 19 98/40 100 Mechanical Ventilator 40 05/24/17 14:00 127 20 94/55 99 Mechanical Ventilator 40 05/24/17 13:00 127 20 98/66 99 Mechanical Ventilator 40 05/24/17 12:38 126 26 40 05/24/17 12:30 124 20 97/67 99 Mechanical Ventilator 40 05/24/17 12:00 125 05/24/17 12:00 126 20 97/68 99 Mechanical Ventilator 40 05/24/17 12:00 40 05/24/17 11:03 123 97/64 05/24/17 11:00 121 19 91/62 99 Mechanical Ventilator 40 05/24/17 10:58 123 26 40 05/24/17 10:00 99.0 118 20 97/64 99 Mechanical Ventilator 40 05/24/17 09:11 143 27 100 Mechanical Ventilator 40 Intake and Output 05/24/17 05/25/17 19:00 07:00 Intake Total 1045.0 ml 1320 ml Output Total 360 ml 695 ml Balance 685.0 ml 625 ml Intake Free Water 200 ml IV Total 185.0 ml 220 ml Tube Feeding 780 ml 780 ml Other 80 ml 120 ml Output Urine Total 160 ml 295 ml Stool Total 200 ml 400 ml # Bowel Movements 3 3 Laboratory Tests 05/25/17 03:38: White Blood Count 22.7*H, Red Blood Count 3.82L, Hemoglobin 10.4L, Hematocrit 35.0L, Mean Corpuscular Volume 92, Mean Corpuscular Hemoglobin 27.2, Mean Corpuscular Hemoglobin Concent 29.7L, Red Cell Distribution Width 17.9H, Platelet Count 545H, Mean Platelet Volume 6.9, Neutrophils (%) (Auto) , Lymphocytes (%) (Auto) , Monocytes (%) (Auto) , Eosinophils (%) (Auto) , Basophils (%) (Auto) , Differential Total Cells Counted 100, Neutrophils % ( Manual) 78H, Lymphocytes % (Manual) 18L, Monocytes % (Manual) 4, Eosinophils % ( Manual) 0, Basophils % (Manual) 0, Band Neutrophils 0, Platelet Estimate IncreasedH, Platelet Morphology Normal, Hypochromasia 1+, Anisocytosis 1+, Sodium Level 157H, Potassium Level 4.1, Chloride Level 116H, Carbon Dioxide Level 31H, Anion Gap 10, Blood Urea Nitrogen 71H, Creatinine 0.9, Estimat Glomerular Filtration Rate > 60, Glucose Level 127H, Calcium Level 8.7, Total Bilirubin 0.3, Aspartate Amino Transf (AST/SGOT) 41H, Alanine Aminotransferase ( ALT/SGPT) 49H, Alkaline Phosphatase 168H, Pro-B-Type Natriuretic Peptide 6237H, Total Protein 7.6, Albumin 2.2L, Globulin 5.4, Albumin/Globulin Ratio 0.4L Height (Feet): 5 Height (Inches): 7.00 Weight (Pounds): 126 General Appearance: lethargic EENT: normal ENT inspection Neck: supple Cardiovascular: normal rate Respiratory/Chest: decreased breath sounds Abdomen: normal bowel sounds, non tender, soft Extremities: non-tender JESSICA JIN May 25, 2017 09:09
[2017-05-25] MEDS: levETIRAcetam 500mg/5ml Liquid GT SCH ×2 (10:01→20:32)
[2017-05-25] MEDS: Pantoprazole Inj IVP SCH (10:02)
[2017-05-25] MEDS: Tigecycline 50 MG in D5W 110 ML IVPB SCH ×2 (10:03→20:31)
[2017-05-25] MEDS: Heparin 5000 units/ml inj SUBQ SCH ×2 (10:19→20:35)
--- NOTE | 2017-05-25 11:04 | Pulmonolgy Critical Care Note ---
Critical Care - Asmt/Plan Problems: (1) Acute on chronic respiratory failure (2) Chronic respiratory acidosis (3) Atrial fibrillation (4) EF of 30 (5) Leukocytosis (6) Feeding by G-tube (7) Anemia Respiratory: monitor respiratory rate Cardiac: continue to monitor HR/BP, other - afib resolved, off cardizem drip Renal: F/U I&O, keep IV fluid Infectious Disease: continue antibiotics Gastrointestinal: continue feedings/current rate Endocrine: monitor blood sugar, check TSH Hematologic: monitor H/H Neurologic: PRN Ativan Affect: PRN ativan Prophylaxis: Protonix, Heparin Notes Reviewed: renal Discussed with: nurses, consultants, 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 - Objective Last 24 Hour Vital Signs Date Time Temp Pulse Resp B/P Pulse Ox O2 Delivery O2 Flow Rate FiO2 05/25/17 10:38 114 24 40 05/25/17 10:03 114 104/70 05/25/17 10:00 113 20 104/70 100 Mechanical Ventilator 40 05/25/17 09:16 111 20 100 Mechanical Ventilator 40 05/25/17 09:15 40 05/25/17 09:14 110 16 99 Mechanical Ventilator 40 05/25/17 09:00 111 20 110/76 100 Mechanical Ventilator 40 05/25/17 08:56 109 17 40 05/25/17 08:00 40 05/25/17 08:00 113 05/25/17 08:00 98.5 110 18 107/76 100 Mechanical Ventilator 40 05/25/17 07:00 111 22 105/76 100 Mechanical Ventilator 40 05/25/17 06:42 109 20 40 05/25/17 06:00 113 22 108/70 100 Mechanical Ventilator 40 05/25/17 05:16 111 22 40 05/25/17 05:00 110 22 130/74 100 Mechanical Ventilator 40 05/25/17 04:00 98.3 103 24 127/73 100 Mechanical Ventilator 40 05/25/17 04:00 108 05/25/17 04:00 40 05/25/17 03:05 106 22 40 05/25/17 03:00 108 22 122/71 100 Mechanical Ventilator 40 05/25/17 02:00 95 20 127/73 100 Mechanical Ventilator 40 05/25/17 01:16 98.6 05/25/17 01:09 104 19 40 05/25/17 01:00 107 20 133/86 100 Mechanical Ventilator 40 05/25/17 00:00 40 05/25/17 00:00 114 05/25/17 00:00 98.6 112 20 120/76 100 Mechanical Ventilator 40 05/24/17 23:18 Mechanical Ventilator 05/24/17 23:17 108 21 40 05/24/17 23:17 Mechanical Ventilator 05/24/17 23:00 106 20 129/79 100 Mechanical Ventilator 40 05/24/17 22:00 103 19 121/75 100 Mechanical Ventilator 40 05/24/17 21:18 113 23 40 05/24/17 21:00 107 19 110/72 100 Mechanical Ventilator 40 05/24/17 20:45 120 135/83 05/24/17 20:00 40 05/24/17 20:00 120 05/24/17 20:00 98.3 120 22 135/83 100 Mechanical Ventilator 40 05/24/17 19:10 117 24 40 05/24/17 19:00 116 19 129/83 100 Mechanical Ventilator 40 05/24/17 18:00 117 19 132/72 100 Mechanical Ventilator 40 05/24/17 17:13 118 24 40 05/24/17 17:00 117 19 103/69 100 Mechanical Ventilator 40 05/24/17 16:36 119 05/24/17 16:00 130 05/24/17 16:00 40 05/24/17 16:00 97.6 124 20 97/60 100 Mechanical Ventilator 40 05/24/17 15:17 124 25 40 05/24/17 15:00 127 19 98/40 100 Mechanical Ventilator 40 05/24/17 14:00 127 20 94/55 99 Mechanical Ventilator 40 05/24/17 13:00 127 20 98/66 99 Mechanical Ventilator 40 05/24/17 12:38 126 26 40 05/24/17 12:30 124 20 97/67 99 Mechanical Ventilator 40 05/24/17 12:00 125 05/24/17 12:00 126 20 97/68 99 Mechanical Ventilator 40 05/24/17 12:00 40 05/24/17 11:03 123 97/64 Status: sedated Condition: critical HEENT: atraumatic Neck: full ROM Lungs: chest wall tender Heart: HR/BP unstable Abdomen: soft, non-tender, feeding tube Extremities: no C/C/E, edema Decubiti: location Micro: Microbiology Date/Time Source Procedure Growth Status 05/22/17 18:30 Stool Clostridium difficile Toxin Assay - Final Complete Critical Care - Subjective ROS Limited/Unobtainable: No FI02: 40 Vent Support Breath Rate: 16 Vent Support Mode: AC Vent Tidal Volume: 450 Sputum Amount: Moderate PEEP: 0.0 PIP: 9 Tube Feeding Amount: 65 I&O: Intake and Output 05/24/17 05/25/17 19:00 07:00 Intake Total 1045.0 ml 1320 ml Output Total 360 ml 695 ml Balance 685.0 ml 625 ml Intake Free Water 200 ml IV Total 185.0 ml 220 ml Tube Feeding 780 ml 780 ml Other 80 ml 120 ml Output Urine Total 160 ml 295 ml Stool Total 200 ml 400 ml # Bowel Movements 3 3 CXR: no change Labs: Laboratory Tests Test 05/25/17 03:38 White Blood Count 22.7 K/UL (4.8-10.8) *H Red Blood Count 3.82 M/UL (4.70-6.10) L Hemoglobin 10.4 G/DL (14.2-18.0) L Hematocrit 35.0 % (42.0-52.0) L Mean Corpuscular Volume 92 FL (80-99) Mean Corpuscular Hemoglobin 27.2 PG (27.0-31.0) Mean Corpuscular Hemoglobin Concent 29.7 G/DL (32.0-36.0) L Red Cell Distribution Width 17.9 % (11.6-14.8) H Platelet Count 545 K/UL (150-450) H Mean Platelet Volume 6.9 FL (6.5-10.1) Neutrophils (%) (Auto) % (45.0-75.0) Lymphocytes (%) (Auto) % (20.0-45.0) Monocytes (%) (Auto) % (1.0-10.0) Eosinophils (%) (Auto) % (0.0-3.0) Basophils (%) (Auto) % (0.0-2.0) Differential Total Cells Counted 100 Neutrophils % (Manual) 78 % (45-75) H Lymphocytes % (Manual) 18 % (20-45) L Monocytes % (Manual) 4 % (1-10) Eosinophils % (Manual) 0 % (0-3) Basophils % (Manual) 0 % (0-2) Band Neutrophils 0 % (0-8) Platelet Estimate Increased H Platelet Morphology Normal Hypochromasia 1+ Anisocytosis 1+ Sodium Level 157 mEQ/L (135-145) H Potassium Level 4.1 mEQ/L (3.4-4.9) Chloride Level 116 mEQ/L (98-107) H Carbon Dioxide Level 31 mEQ/L (20-30) H Anion Gap 10 (5-15) Blood Urea Nitrogen 71 mg/dL (7-23) H Creatinine 0.9 mg/dL (0.7-1.2) Estimat Glomerular Filtration Rate > 60 mL/min (>60) Glucose Level 127 mg/dL (74-106) H Calcium Level 8.7 mg/dL (8.6-10.2) Total Bilirubin 0.3 mg/dL (0.0-1.2) Aspartate Amino Transf (AST/SGOT) 41 U/L (5-40) H Alanine Aminotransferase (ALT/SGPT) 49 U/L (3-41) H Alkaline Phosphatase 168 U/L (40-129) H Pro-B-Type Natriuretic Peptide 6237 pg/mL (0-125) H Total Protein 7.6 g/dL (6.6-8.7) Albumin 2.2 g/dL (3.5-5.2) L Globulin 5.4 g/dL Albumin/Globulin Ratio 0.4 (1.0-2.7) L ODETTE SMILEY May 25, 2017 11:04
--- NOTE | 2017-05-25 14:51 | Cardiology Progress Note ---
Assessment/Plan Problem List: (1) Right pulmonary infiltrate on CXR (2) Feeding by G-tube (3) Acute on chronic respiratory failure (4) Anemia (5) Atrial fibrillation (6) EF of 30 Status: stable, unchanged Status Narrative Rhythm has reverted back to NSR He remains vent-dependent and on g tube feeds. ICD checked today - normal function Assessment/Plan Continue maintenance ngt amiodarone 200 mg /d Stop cardizem drip Continue lasix, coreg, aldactone. ? start CHEN or ARB for afterload reduction. management of resp failure/ pneumonia per Dr. Moses Subjective ROS Limited/Unobtainable: Yes Subjective Pt intubated/ awake Objective Last 24 Hour Vital Signs Date Time Temp Pulse Resp B/P Pulse Ox O2 Delivery O2 Flow Rate FiO2 05/25/17 14:00 112 23 100/72 100 Mechanical Ventilator 40 05/25/17 13:00 108 21 115/74 100 Mechanical Ventilator 40 05/25/17 12:45 106 19 40 05/25/17 12:00 98.5 103 20 104/74 100 Mechanical Ventilator 40 05/25/17 12:00 40 05/25/17 12:00 104 05/25/17 11:00 108 23 98/69 100 Mechanical Ventilator 40 05/25/17 11:00 108 98/69 05/25/17 10:38 114 24 40 05/25/17 10:03 114 104/70 05/25/17 10:00 113 20 104/70 100 Mechanical Ventilator 40 05/25/17 09:16 111 20 100 Mechanical Ventilator 40 05/25/17 09:15 40 05/25/17 09:14 110 16 99 Mechanical Ventilator 40 05/25/17 09:00 111 20 110/76 100 Mechanical Ventilator 40 05/25/17 08:56 109 17 40 05/25/17 08:00 40 05/25/17 08:00 113 05/25/17 08:00 98.5 110 18 107/76 100 Mechanical Ventilator 40 05/25/17 07:00 111 22 105/76 100 Mechanical Ventilator 40 05/25/17 06:42 109 20 40 05/25/17 06:00 113 22 108/70 100 Mechanical Ventilator 40 05/25/17 05:16 111 22 40 05/25/17 05:00 110 22 130/74 100 Mechanical Ventilator 40 05/25/17 04:00 98.3 103 24 127/73 100 Mechanical Ventilator 40 05/25/17 04:00 108 05/25/17 04:00 40 05/25/17 03:05 106 22 40 05/25/17 03:00 108 22 122/71 100 Mechanical Ventilator 40 05/25/17 02:00 95 20 127/73 100 Mechanical Ventilator 40 05/25/17 01:16 98.6 05/25/17 01:09 104 19 40 05/25/17 01:00 107 20 133/86 100 Mechanical Ventilator 40 05/25/17 00:00 40 05/25/17 00:00 114 05/25/17 00:00 98.6 112 20 120/76 100 Mechanical Ventilator 40 05/24/17 23:18 Mechanical Ventilator 05/24/17 23:17 108 21 40 05/24/17 23:17 Mechanical Ventilator 05/24/17 23:00 106 20 129/79 100 Mechanical Ventilator 40 05/24/17 22:00 103 19 121/75 100 Mechanical Ventilator 40 05/24/17 21:18 113 23 40 05/24/17 21:00 107 19 110/72 100 Mechanical Ventilator 40 05/24/17 20:45 120 135/83 05/24/17 20:00 40 05/24/17 20:00 120 05/24/17 20:00 98.3 120 22 135/83 100 Mechanical Ventilator 40 05/24/17 19:10 117 24 40 05/24/17 19:00 116 19 129/83 100 Mechanical Ventilator 40 05/24/17 18:00 117 19 132/72 100 Mechanical Ventilator 40 05/24/17 17:13 118 24 40 05/24/17 17:00 117 19 103/69 100 Mechanical Ventilator 40 05/24/17 16:36 119 05/24/17 16:00 130 05/24/17 16:00 40 05/24/17 16:00 97.6 124 20 97/60 100 Mechanical Ventilator 40 05/24/17 15:17 124 25 40 05/24/17 15:00 127 19 98/40 100 Mechanical Ventilator 40 General Appearance: cachetic, on vent EENT: PERRL/EOMI Neck: no JVD, other - trach in place Rhythm: NSR Cardiovascular: normal rate, regular rhythm, no gallop/murmur Respiratory/Chest: lungs clear - clear anteriorly Abdomen: non tender, soft, other - + g tube Extremities: no swelling Intake and Output 05/24/17 05/25/17 19:00 07:00 Intake Total 1045.0 ml 1320 ml Output Total 360 ml 695 ml Balance 685.0 ml 625 ml Intake Free Water 200 ml IV Total 185.0 ml 220 ml Tube Feeding 780 ml 780 ml Other 80 ml 120 ml Output Urine Total 160 ml 295 ml Stool Total 200 ml 400 ml # Bowel Movements 3 3 Laboratory Tests Test 05/25/17 03:38 White Blood Count 22.7 K/UL (4.8-10.8) *H Red Blood Count 3.82 M/UL (4.70-6.10) L Hemoglobin 10.4 G/DL (14.2-18.0) L Hematocrit 35.0 % (42.0-52.0) L Mean Corpuscular Volume 92 FL (80-99) Mean Corpuscular Hemoglobin 27.2 PG (27.0-31.0) Mean Corpuscular Hemoglobin Concent 29.7 G/DL (32.0-36.0) L Red Cell Distribution Width 17.9 % (11.6-14.8) H Platelet Count 545 K/UL (150-450) H Mean Platelet Volume 6.9 FL (6.5-10.1) Neutrophils (%) (Auto) % (45.0-75.0) Lymphocytes (%) (Auto) % (20.0-45.0) Monocytes (%) (Auto) % (1.0-10.0) Eosinophils (%) (Auto) % (0.0-3.0) Basophils (%) (Auto) % (0.0-2.0) Differential Total Cells Counted 100 Neutrophils % (Manual) 78 % (45-75) H Lymphocytes % (Manual) 18 % (20-45) L Monocytes % (Manual) 4 % (1-10) Eosinophils % (Manual) 0 % (0-3) Basophils % (Manual) 0 % (0-2) Band Neutrophils 0 % (0-8) Platelet Estimate Increased H Platelet Morphology Normal Hypochromasia 1+ Anisocytosis 1+ Sodium Level 157 mEQ/L (135-145) H Potassium Level 4.1 mEQ/L (3.4-4.9) Chloride Level 116 mEQ/L (98-107) H Carbon Dioxide Level 31 mEQ/L (20-30) H Anion Gap 10 (5-15) Blood Urea Nitrogen 71 mg/dL (7-23) H Creatinine 0.9 mg/dL (0.7-1.2) Estimat Glomerular Filtration Rate > 60 mL/min (>60) Glucose Level 127 mg/dL (74-106) H Calcium Level 8.7 mg/dL (8.6-10.2) Total Bilirubin 0.3 mg/dL (0.0-1.2) Aspartate Amino Transf (AST/SGOT) 41 U/L (5-40) H Alanine Aminotransferase (ALT/SGPT) 49 U/L (3-41) H Alkaline Phosphatase 168 U/L (40-129) H Pro-B-Type Natriuretic Peptide 6237 pg/mL (0-125) H Total Protein 7.6 g/dL (6.6-8.7) Albumin 2.2 g/dL (3.5-5.2) L Globulin 5.4 g/dL Albumin/Globulin Ratio 0.4 (1.0-2.7) L Microbiology Date/Time Source Procedure Growth Status 05/22/17 18:30 Stool Clostridium difficile Toxin Assay - Final Complete Objective ICD interrogation: St brian Blake Garcia DR implanted 2015 sensing > 5 mv atr, 11 mv ventr pacin.75 v/ 0.5 ms atr and ventr impedance: 410 ohm atr, 400 ohm rv 47 ohm HR episodes: 1 episode of nonsustained VT . no sustained VT/ VF since last interrogation device longevity: 5.5-7.5 yrs remaining WOODY BROWN May 25, 2017 14:51
[2017-05-25] MEDS ORDERED: Miralax 17gm pkt GT PRN (16:00)
--- NOTE | 2017-05-25 17:03 | Infectious Diseases Prog Note ---
Assessment/Plan Assessment/Plan ASSESSMENT: 57 y/o male with on tigecycline, colistin, and meropenem for recurrent HCAP/VAP with MDR-ACB and KPC. leukocytosis persists, last low grade temp to 100.1F >72 hrs ago,, CT a/p on 05/17 negative for abscess, and C diff PCR 05/22 negative, and last blood cx on 05/17/17 negative. Had been receiving Dakin's in [facility] and topical care to stage IV sacral decubitus for foul smell but no surrounding cellulitis, and nursing reports probes to bone with medical images showing some significant fibrinous exudate centrally. L ear auricle uninfected. Continue current therapy. I am concerned his persistent leukocytosis is due to sacral decubitus ulcer. // recurrent HCAP / VAP - SCx : MDR - ACB , KPC - CXR: Worsening atelectasis versus pneumonia right lung base - h/o Provid a+ XDR PSA and Providencia // Stage IV sacral decubitus, not grossly infected - surveillance WCx KPC and ACB, strep, CONS ( colonizer ) - h/o polymicrobial MDR colonization // HCV Ab+ - Abdominal ultrasound of liver : unremarkable // Probable sepsis, SP // Leukocytosis: persistent CT of C/A/P : No evidence of abscess , Pulmonary bibasal parenchymal consolidation // Low grade fever x1 , SP Severe anemia SP PRBCs Sinus tachycardia Chronic VDRF SP trach, PEG h/o cardiac arrest, anoxic encephalopathy Cardiomyopathy SP defibrillator placement Paroxysmal atrial fibrillation Cachexia / severe protein-calorie malnutrition [place] resident NKDA Full Code PLAN: continue IV Tygacil and inhaled Colistin d# / , continue Merrem d# / . complete all 3 on . ( 05/15 SP IV vancomycin, Zosyn d# 5 ) ( SP Merrem and Colistin INH d# / ) ( 03/13 SP vancomycin and Zosyn d# 5 ) Monitor CBC, temperatures Monitor CMP Monitor CXR vent support, trach care, aspiration precautions wound care to stage IV sacral decub; request wound care re-evaluate wound on friday transfuse prn Subjective Allergies: Coded Allergies: No Known Allergies (Unverified , 03/07/17) Subjective Back in NSR. transferred back to [facility] from ICU today. Objective Vital Signs Last 24 Hour Vital Signs Date Time Temp Pulse Resp B/P Pulse Ox O2 Delivery O2 Flow Rate FiO2 05/25/17 16:49 115 20 40 05/25/17 15:00 110 20 108/73 100 Mechanical Ventilator 40 05/25/17 14:47 110 20 40 05/25/17 14:00 112 23 100/72 100 Mechanical Ventilator 40 05/25/17 13:00 108 21 115/74 100 Mechanical Ventilator 40 05/25/17 12:45 106 19 40 05/25/17 12:00 98.5 103 20 104/74 100 Mechanical Ventilator 40 05/25/17 12:00 40 05/25/17 12:00 104 05/25/17 11:00 108 23 98/69 100 Mechanical Ventilator 40 05/25/17 11:00 108 98/69 05/25/17 10:38 114 24 40 05/25/17 10:03 114 104/70 05/25/17 10:00 113 20 104/70 100 Mechanical Ventilator 40 05/25/17 09:16 111 20 100 Mechanical Ventilator 40 05/25/17 09:15 40 05/25/17 09:14 110 16 99 Mechanical Ventilator 40 05/25/17 09:00 111 20 110/76 100 Mechanical Ventilator 40 05/25/17 08:56 109 17 40 05/25/17 08:00 40 05/25/17 08:00 113 05/25/17 08:00 98.5 110 18 107/76 100 Mechanical Ventilator 40 05/25/17 07:00 111 22 105/76 100 Mechanical Ventilator 40 05/25/17 06:42 109 20 40 05/25/17 06:00 113 22 108/70 100 Mechanical Ventilator 40 05/25/17 05:16 111 22 40 05/25/17 05:00 110 22 130/74 100 Mechanical Ventilator 40 05/25/17 04:00 98.3 103 24 127/73 100 Mechanical Ventilator 40 05/25/17 04:00 108 05/25/17 04:00 40 05/25/17 03:05 106 22 40 05/25/17 03:00 108 22 122/71 100 Mechanical Ventilator 40 05/25/17 02:00 95 20 127/73 100 Mechanical Ventilator 40 05/25/17 01:16 98.6 05/25/17 01:09 104 19 40 05/25/17 01:00 107 20 133/86 100 Mechanical Ventilator 40 05/25/17 00:00 40 05/25/17 00:00 114 05/25/17 00:00 98.6 112 20 120/76 100 Mechanical Ventilator 40 05/24/17 23:18 Mechanical Ventilator 05/24/17 23:17 108 21 40 05/24/17 23:17 Mechanical Ventilator 05/24/17 23:00 106 20 129/79 100 Mechanical Ventilator 40 05/24/17 22:00 103 19 121/75 100 Mechanical Ventilator 40 05/24/17 21:18 113 23 40 05/24/17 21:00 107 19 110/72 100 Mechanical Ventilator 40 05/24/17 20:45 120 135/83 05/24/17 20:00 40 05/24/17 20:00 120 05/24/17 20:00 98.3 120 22 135/83 100 Mechanical Ventilator 40 05/24/17 19:10 117 24 40 05/24/17 19:00 116 19 129/83 100 Mechanical Ventilator 40 05/24/17 18:00 117 19 132/72 100 Mechanical Ventilator 40 05/24/17 17:13 118 24 40 05/24/17 17:00 117 19 103/69 100 Mechanical Ventilator 40 Height (Feet): 5 Height (Inches): 7.00 Weight (Pounds): 126 General Appearance: no acute distress HEENT: anicteric Respiratory/Chest: rhonchi - bilaterally Cardiovascular: normal rate, regular rhythm Abdomen: soft, non tender, no organomegaly Genitourinary: normal external genitalia Extremities: no cyanosis, no edema Skin: ulcers - sacral decubitus ulcer stage IV, bone palpable Microbiology Date/Time Source Procedure Growth Status 05/22/17 18:30 Stool Clostridium difficile Toxin Assay - Final Complete Laboratory Tests Test 05/25/17 03:38 White Blood Count 22.7 K/UL (4.8-10.8) *H Red Blood Count 3.82 M/UL (4.70-6.10) L Hemoglobin 10.4 G/DL (14.2-18.0) L Hematocrit 35.0 % (42.0-52.0) L Mean Corpuscular Volume 92 FL (80-99) Mean Corpuscular Hemoglobin 27.2 PG (27.0-31.0) Mean Corpuscular Hemoglobin Concent 29.7 G/DL (32.0-36.0) L Red Cell Distribution Width 17.9 % (11.6-14.8) H Platelet Count 545 K/UL (150-450) H Mean Platelet Volume 6.9 FL (6.5-10.1) Neutrophils (%) (Auto) % (45.0-75.0) Lymphocytes (%) (Auto) % (20.0-45.0) Monocytes (%) (Auto) % (1.0-10.0) Eosinophils (%) (Auto) % (0.0-3.0) Basophils (%) (Auto) % (0.0-2.0) Differential Total Cells Counted 100 Neutrophils % (Manual) 78 % (45-75) H Lymphocytes % (Manual) 18 % (20-45) L Monocytes % (Manual) 4 % (1-10) Eosinophils % (Manual) 0 % (0-3) Basophils % (Manual) 0 % (0-2) Band Neutrophils 0 % (0-8) Platelet Estimate Increased H Platelet Morphology Normal Hypochromasia 1+ Anisocytosis 1+ Sodium Level 157 mEQ/L (135-145) H Potassium Level 4.1 mEQ/L (3.4-4.9) Chloride Level 116 mEQ/L (98-107) H Carbon Dioxide Level 31 mEQ/L (20-30) H Anion Gap 10 (5-15) Blood Urea Nitrogen 71 mg/dL (7-23) H Creatinine 0.9 mg/dL (0.7-1.2) Estimat Glomerular Filtration Rate > 60 mL/min (>60) Glucose Level 127 mg/dL (74-106) H Calcium Level 8.7 mg/dL (8.6-10.2) Total Bilirubin 0.3 mg/dL (0.0-1.2) Aspartate Amino Transf (AST/SGOT) 41 U/L (5-40) H Alanine Aminotransferase (ALT/SGPT) 49 U/L (3-41) H Alkaline Phosphatase 168 U/L (40-129) H Pro-B-Type Natriuretic Peptide 6237 pg/mL (0-125) H Total Protein 7.6 g/dL (6.6-8.7) Albumin 2.2 g/dL (3.5-5.2) L Globulin 5.4 g/dL Albumin/Globulin Ratio 0.4 (1.0-2.7) L Current Medications Medications (Trade) Dose Ordered Sig/Tameka Route PRN Reason Start Time Stop Time Status Last Admin Dose Admin Acetaminophen (Tylenol) 650 mg Q4H PRN ORAL T>100.5 05/25/17 16:00 06/24/17 15:59 Ascorbic Acid (Vitamin C) 500 mg DAILY GT 05/26/17 09:00 06/25/17 08:59 Carvedilol (Coreg) 3.125 mg Q12HR GT 05/25/17 21:00 06/24/17 20:59 Colistimethate Sodium (Colistin *inhalation use only*) 150 mg Q12HR@10,22 INH 05/25/17 22:00 06/01/17 21:59 Dextrose (Dextrose 50%) STAT PRN IV Hypoglycemia 05/25/17 16:00 06/24/17 15:59 Furosemide (Lasix) 60 mg DAILY GT 05/26/17 09:00 06/25/17 08:59 Heparin Sodium (Porcine) (Heparin 5000 units/ml) 5,000 units EVERY 12 HOURS SUBQ 05/25/17 21:00 06/24/17 20:59 Levetiracetam (Keppra) 500 mg Q12HR GT 05/25/17 21:00 06/24/17 20:59 Meropenem 500 mg/ Sodium Chloride 55 ml @ 110 mls/hr EVERY 8 HOURS IVPB 05/25/17 22:00 05/30/17 21:59 Ondansetron HCl (Zofran) 4 mg Q6H PRN IVP Nausea & Vomiting 05/25/17 16:15 06/24/17 16:14 Polyethylene Glycol (Miralax) 17 gm DAILYPRN PRN GT Constipation 05/25/17 16:00 06/24/17 15:59 Sodium Hypochlorite (Dakin's Half Strength) 1 applic DAILY TOPIC 05/26/17 09:00 06/25/17 08:59 Spironolactone (Aldactone) 25 mg DAILY GT 05/26/17 09:00 06/25/17 08:59 Tigecycline/ Dextrose (Tygacil/D5W) 110 ml @ 220 mls/hr EVERY 12 HOURS IVPB 05/25/17 21:00 06/01/17 20:59 Colby Friend M.D. May 25, 2017 17:03
[2017-05-26 03:03] VITALS: BP 125/85
[2017-05-26] MEDS: Meropenem 500 MG in NS 55 ML IVPB SCH ×3 (06:14→22:31)
[2017-05-26 08:00] VITALS: BP 103/71
[2017-05-26] MEDS ORDERED: Amiodarone 200mg tab GT SCH (09:00)
[2017-05-26] MEDS: Spironolactone 25mg tab GT SCH (09:17)
[2017-05-26] MEDS: Ascorbic Acid 500mg tab GT SCH (09:17)
[2017-05-26] MEDS: levETIRAcetam 500mg/5ml Liquid GT SCH ×2 (09:17→21:01)
[2017-05-26] MEDS: Tigecycline 50 MG in D5W 110 ML IVPB SCH ×2 (09:18→21:00)
[2017-05-26] MEDS: Dakin's 0.25% (Half Strength) 16oz TOPIC SCH (09:19)
[2017-05-26] MEDS: Heparin 5000 units/ml inj SUBQ SCH ×2 (09:20→21:03)
[2017-05-26] MEDS: Colistin for inhalation INH SCH ×2 (09:34→21:53)
--- NOTE | 2017-05-26 10:27 | Diagnostic Imaging Report ---
Indications: Dyspnea Technique: Portable AP chest Findings: Comparison: 05/20/2017 Cardiac silhouette remains normal in size. Pulmonary vasculature remains within normal limits. Linear density probably subsegmental atelectasis versus scarring persists in the left retrocardiac region. Lungs and pleura remain otherwise clear. Mild calcification of the aortic arch, tracheostomy, pacemaker all again noted.. IMPRESSION: No evidence of acute disease, unchanged Stable chronic changes as described
--- NOTE | 2017-05-26 11:30 | Wound Care Consultation ---
Wound Assessment Wound Assessment : Wound Number: #1 Wound Present on Admission: Yes New Wound: No Status Change of Wound: No Wound Location Body Site Modif: mid Wound Location Body Site: other - sacroccygeal Wound Type: pressure ulcer Francis Test: Does not Francis Pressure Ulcer Stage: IV/unstageable Wound Thickness: Full Thickness Wound Length: 11.0 Wound Width: 18.0 Wound Depth: utd Percent of Wound [place]/Red: 50 Percent of Wound Bed Yellow/Wh: 30 - thick yellow slough Percent of Wound Purple/Maroon: 20 - scattered. Wound Drainage Description: Serosanguineous Wound Drainage Amount: Moderate Wound Drainage Odor: Mild Odor - odor improved Tissue Surrounding Wound: Macerated Wound Undermining at 6:00: 1.0 - noted undermining appeared at 6 Wound General Appearance: Reddened - scattered maroon color to wound., Draining, Necrotic - noted thick yellow slough to middle of wound partially adhered., Bone Palpable, Bone Visible Wound Comment #1 mid sacrococcygeal pressure ulcer stage IV/unstageable.- No further deterioration present. site reassessed noted wound odor has decrease dakins is effective , drainage in wound has also decrease, wound remains as unstageable due to thick yellow slough partially adhered towards center of wound bed. upon reassessment noted bone is palpable and bone is revealing itself . patient would benefit from debridement. RECOMMENDATION. -FOLLOW UP WITH ID MD Dr. Friend. -Turn and reposition. -Keep clean and dry. -Optimize nutrition. -Local wound care as ordered. -Heel protectors. -Low air loss p200 mattress. -Avoid shear and friction. -Assess and notify MD for any further changes of condition noted to wound. AMALIA NIEVES May 26, 2017 11:30
[2017-05-26 12:00] VITALS: BP 108/77
--- NOTE | 2017-05-26 12:05 | Wound Nurse Progress Note ---
Wound RN Progress Note Wound Consult Patient was seen and evaluated by dr. hager. refer to his notes regarding recommendation for sacrococcygeal wound. AMALIA NIEVES May 26, 2017 12:05
[2017-05-26 12:08] LABS: MEAN CORPUSCULAR HEMOGLOBIN 27.5 PG (27.0-31.0); MEAN CORPUSCULAR VOLUME 91 FL (80-99); MEAN PLATELET VOLUME 7.6 FL (6.5-10.1); PLATELET COUNT 489 K/UL (150-450); RED BLOOD COUNT 3.82 M/UL (4.70-6.10); RED CELL DISTRIBUTION WIDTH 17.7 % (11.6-14.8)
[2017-05-26 12:18] LABS: ANION GAP 9 (5-15); CALCIUM 8.8 mg/dL (8.6-10.2); CARBON DIOXIDE 31 mEQ/L (20-30); CHLORIDE 121 mEQ/L (98-107); CREATININE 0.9 mg/dL (0.7-1.2); GLOMERULAR FILTRATION RATE > 60 mL/min (>60); HEMOLYSIS 3
[2017-05-26 12:19] LABS: SODIUM 161 mEQ/L (135-145)
[2017-05-26 12:32] LABS: ANISOCYTOSIS 1+; BAND NEUTROPHILS % (MANUAL) 0 % (0-8); BASOPHILS % (MANUAL) 0 % (0-2); EOSINOPHILS % (MANUAL) 0 % (0-3); HYPOCHROMASIA 1+; LYMPHOCYTES % (MANUAL) 9 % (20-45); NEUTROPHILS % (MANUAL) 85 % (45-75); PLATELET ESTIMATE ADEQUATE; PLATELET MORPHOLOGY NORMAL; TOTAL CELLS COUNTED 100
--- NOTE | 2017-05-26 12:51 | GI Progress Note ---
Assessment/Plan Problems: (1) Anemia ICD Codes: D64.9 - Anemia, unspecified SNOMED: 559981453 Qualifiers: Qualified Codes: D64.9 - Anemia, unspecified (2) EF of 30 (3) Feeding by G-tube ICD Codes: Z93.1 - Gastrostomy status SNOMED: 126125603, 335812016 (4) Transaminitis ICD Codes: R74.0 - Nonspecific elevation of levels of transaminase and lactic acid dehydrogenase [LDH] SNOMED: 872182888 (5) Leukocytosis ICD Codes: D72.829 - Elevated white blood cell count, unspecified SNOMED: 850632089, 532061908 Status: unchanged Status Narrative Discussed with. Dr. Alex. Assessment/Plan occult blood stool >> negative x 2 stable H&H, transfuse prn GT replaced. GTFs per dietary, monitor residuals PPI for GI prophylaxis abx fu labs Subjective Subjective limited Objective Last 24 Hour Vital Signs Date Time Temp Pulse Resp B/P Pulse Ox O2 Delivery O2 Flow Rate FiO2 05/26/17 12:00 40 05/26/17 09:45 124 22 100 Mechanical Ventilator 40 05/26/17 09:35 127 27 100 Mechanical Ventilator 40 05/26/17 09:26 125 22 40 05/26/17 09:17 124 103/71 05/26/17 08:00 126 05/26/17 08:00 98.1 124 21 103/71 100 Mechanical Ventilator 40 05/26/17 08:00 40 05/26/17 07:08 126 28 40 05/26/17 04:41 132 27 40 05/26/17 04:00 40 05/26/17 04:00 131 05/26/17 03:03 98.4 136 22 125/85 100 Mechanical Ventilator 40 05/26/17 03:02 136 33 40 05/26/17 01:52 133 21 40 05/26/17 00:00 40 05/26/17 00:00 127 05/25/17 23:43 97.9 127 21 109/74 100 Mechanical Ventilator 40 05/25/17 22:46 127 23 40 05/25/17 22:00 127 22 100 Mechanical Ventilator 40 05/25/17 21:49 124 22 100 Mechanical Ventilator 40 05/25/17 21:49 40 05/25/17 21:30 124 22 40 05/25/17 21:00 124 106/72 05/25/17 20:00 118 05/25/17 19:56 40 05/25/17 19:54 98.1 120 20 106/72 100 Mechanical Ventilator 40 05/25/17 19:30 116 25 40 05/25/17 16:49 115 20 40 05/25/17 16:00 40 05/25/17 16:00 113 05/25/17 15:00 110 20 108/73 100 Mechanical Ventilator 40 05/25/17 14:47 110 20 40 05/25/17 14:00 112 23 100/72 100 Mechanical Ventilator 40 05/25/17 13:00 108 21 115/74 100 Mechanical Ventilator 40 Intake and Output 05/25/17 05/26/17 19:00 07:00 Intake Total 1340 ml 1510 ml Output Total 835 ml 400 ml Balance 505 ml 1110 ml Intake Free Water 300 ml 400 ml IV Total 165 ml 220 ml Tube Feeding 780 ml 650 ml Other 95 ml 240 ml Output Urine Total 435 ml Stool Total 400 ml 400 ml Laboratory Tests Test 05/26/17 11:20 White Blood Count 18.0 K/UL (4.8-10.8) H Red Blood Count 3.82 M/UL (4.70-6.10) L Hemoglobin 10.5 G/DL (14.2-18.0) L Hematocrit 35.0 % (42.0-52.0) L Mean Corpuscular Volume 91 FL (80-99) Mean Corpuscular Hemoglobin 27.5 PG (27.0-31.0) Mean Corpuscular Hemoglobin Concent 30.0 G/DL (32.0-36.0) L Red Cell Distribution Width 17.7 % (11.6-14.8) H Platelet Count 489 K/UL (150-450) H Mean Platelet Volume 7.6 FL (6.5-10.1) Neutrophils (%) (Auto) % (45.0-75.0) Lymphocytes (%) (Auto) % (20.0-45.0) Monocytes (%) (Auto) % (1.0-10.0) Eosinophils (%) (Auto) % (0.0-3.0) Basophils (%) (Auto) % (0.0-2.0) Differential Total Cells Counted 100 Neutrophils % (Manual) 85 % (45-75) H Lymphocytes % (Manual) 9 % (20-45) L Monocytes % (Manual) 6 % (1-10) Eosinophils % (Manual) 0 % (0-3) Basophils % (Manual) 0 % (0-2) Band Neutrophils 0 % (0-8) Platelet Estimate Adequate Platelet Morphology Normal Hypochromasia 1+ Anisocytosis 1+ Sodium Level 161 mEQ/L (135-145) *H Potassium Level 4.0 mEQ/L (3.4-4.9) Chloride Level 121 mEQ/L (98-107) H Carbon Dioxide Level 31 mEQ/L (20-30) H Anion Gap 9 (5-15) Blood Urea Nitrogen 95 mg/dL (7-23) H Creatinine 0.9 mg/dL (0.7-1.2) Estimat Glomerular Filtration Rate > 60 mL/min (>60) Glucose Level 140 mg/dL (74-106) H Calcium Level 8.8 mg/dL (8.6-10.2) Height (Feet): 5 Height (Inches): 7.00 Weight (Pounds): 126 General Appearance: no apparent distress, alert Cardiovascular: normal rate Respiratory/Chest: no respiratory distress, other - mech vent Abdominal Exam: normal bowel sounds, non tender, soft, GT site - c/d/i Lani Last N.P. May 26, 2017 12:51
[2017-05-26 16:00] VITALS: BP_SYST 104; BP_DIAS 40; BP_DIAS 70
[2017-05-26] MEDS ORDERED: Tubing IV Secondary IV ONE (16:49)
[2017-05-26] MEDS ORDERED: NS 275ml ONE (16:49)
--- NOTE | 2017-05-26 17:21 | Infectious Diseases Prog Note ---
Assessment/Plan Assessment/Plan ASSESSMENT: 57 y/o male with on tigecycline, colistin, and meropenem for recurrent HCAP/VAP with MDR-ACB and KPC. leukocytosis persists but downtredning to 18, last low grade temp to 100.1F >72 hrs ago. Recent imaging: CT a/p on 05/17 negative for abscess. Recent pertinent labs: C diff PCR 05/22 negative and last blood cx on 05/17/17 negative. His sacral decubitus ulcer probes to bone, has been evaluated by surgery and not considered surgical candidate, and he's received close care from the wound care team who has just re -evalauted the wound, continuing to receive Dakin's and chemical debirdment of fibrinous exudate centrally. I am concerned his persistent leukocytosis is due at least in part to this sacral decubitus ulcer which may have underlying osteomyelitis. // recurrent HCAP / VAP - SCx : MDR - ACB , KPC - CXR: Worsening atelectasis versus pneumonia right lung base - h/o XDR PSA and Providencia // Stage IV sacral decubitus, not grossly infected - surveillance WCx KPC and ACB, strep, CONS ( colonizer ) - h/o polymicrobial MDR colonization // HCV Ab+ - Abdominal ultrasound of liver : unremarkable // Probable sepsis, SP // Leukocytosis: persistent CT of C/A/P : No evidence of abscess , Pulmonary bibasal parenchymal consolidation // Low grade fever x1 , SP Severe anemia SP PRBCs Sinus tachycardia Chronic VDRF SP trach, PEG h/o cardiac arrest, anoxic encephalopathy Cardiomyopathy SP defibrillator placement Paroxysmal atrial fibrillation Cachexia / severe protein-calorie malnutrition [place] resident NKDA Full Code PLAN: continue IV Tygacil and inhaled Colistin d# 13 / 14 , continue Merrem d# 10. complete all 3 on . ( 05/15 SP IV vancomycin, Zosyn d# 5 ) ( SP Merrem and Colistin INH d# / ) ( 03/13 SP vancomycin and Zosyn d# 5 ) Monitor CBC, temperatures Monitor CMP Monitor CXR vent support, trach care, aspiration precautions continued wound care to stage IV sacral decub transfuse prn Subjective Allergies: Coded Allergies: No Known Allergies (Unverified , 03/07/17) Subjective Back in [facility]. transferred back to [facility] from ICU yesterday. Objective Vital Signs Last 24 Hour Vital Signs Date Time Temp Pulse Resp B/P Pulse Ox O2 Delivery O2 Flow Rate FiO2 05/26/17 17:08 128 21 40 05/26/17 16:00 99.0 120 25 104/70 100 Mechanical Ventilator 40 05/26/17 16:00 40 05/26/17 15:30 128 21 40 05/26/17 12:50 123 22 40 05/26/17 12:00 97.9 121 20 108/77 100 Mechanical Ventilator 40 05/26/17 12:00 119 05/26/17 12:00 40 05/26/17 10:40 122 27 40 05/26/17 09:45 124 22 100 Mechanical Ventilator 40 05/26/17 09:35 127 27 100 Mechanical Ventilator 40 05/26/17 09:26 125 22 40 05/26/17 09:17 124 103/71 05/26/17 08:00 126 05/26/17 08:00 98.1 124 21 103/71 100 Mechanical Ventilator 40 05/26/17 08:00 40 05/26/17 07:08 126 28 40 05/26/17 04:41 132 27 40 05/26/17 04:00 40 05/26/17 04:00 131 05/26/17 03:03 98.4 136 22 125/85 100 Mechanical Ventilator 40 05/26/17 03:02 136 33 40 05/26/17 01:52 133 21 40 05/26/17 00:00 40 05/26/17 00:00 127 05/25/17 23:43 97.9 127 21 109/74 100 Mechanical Ventilator 40 05/25/17 22:46 127 23 40 05/25/17 22:00 127 22 100 Mechanical Ventilator 40 05/25/17 21:49 124 22 100 Mechanical Ventilator 40 05/25/17 21:49 40 05/25/17 21:30 124 22 40 05/25/17 21:00 124 106/72 05/25/17 20:00 118 05/25/17 19:56 40 05/25/17 19:54 98.1 120 20 106/72 100 Mechanical Ventilator 40 05/25/17 19:30 116 25 40 Height (Feet): 5 Height (Inches): 7.00 Weight (Pounds): 126 General Appearance: no acute distress, cachetic HEENT: anicteric Respiratory/Chest: rhonchi - bilaterally Cardiovascular: normal rate, regular rhythm Abdomen: soft, non tender, other - scaphoid abdomen. peg tube in place Genitourinary: other - tierney in place with concentrated urine. Extremities: other - cachectic Skin: no rash Musculoskeletal: atrophy Laboratory Tests Test 05/26/17 11:20 White Blood Count 18.0 K/UL (4.8-10.8) H Red Blood Count 3.82 M/UL (4.70-6.10) L Hemoglobin 10.5 G/DL (14.2-18.0) L Hematocrit 35.0 % (42.0-52.0) L Mean Corpuscular Volume 91 FL (80-99) Mean Corpuscular Hemoglobin 27.5 PG (27.0-31.0) Mean Corpuscular Hemoglobin Concent 30.0 G/DL (32.0-36.0) L Red Cell Distribution Width 17.7 % (11.6-14.8) H Platelet Count 489 K/UL (150-450) H Mean Platelet Volume 7.6 FL (6.5-10.1) Neutrophils (%) (Auto) % (45.0-75.0) Lymphocytes (%) (Auto) % (20.0-45.0) Monocytes (%) (Auto) % (1.0-10.0) Eosinophils (%) (Auto) % (0.0-3.0) Basophils (%) (Auto) % (0.0-2.0) Differential Total Cells Counted 100 Neutrophils % (Manual) 85 % (45-75) H Lymphocytes % (Manual) 9 % (20-45) L Monocytes % (Manual) 6 % (1-10) Eosinophils % (Manual) 0 % (0-3) Basophils % (Manual) 0 % (0-2) Band Neutrophils 0 % (0-8) Platelet Estimate Adequate Platelet Morphology Normal Hypochromasia 1+ Anisocytosis 1+ Sodium Level 161 mEQ/L (135-145) *H Potassium Level 4.0 mEQ/L (3.4-4.9) Chloride Level 121 mEQ/L (98-107) H Carbon Dioxide Level 31 mEQ/L (20-30) H Anion Gap 9 (5-15) Blood Urea Nitrogen 95 mg/dL (7-23) H Creatinine 0.9 mg/dL (0.7-1.2) Estimat Glomerular Filtration Rate > 60 mL/min (>60) Glucose Level 140 mg/dL (74-106) H Calcium Level 8.8 mg/dL (8.6-10.2) Current Medications Medications (Trade) Dose Ordered Sig/Tameka Route PRN Reason Start Time Stop Time Status Last Admin Dose Admin Acetaminophen (Tylenol) 650 mg Q4H PRN ORAL T>100.5 05/25/17 16:00 06/24/17 15:59 Ascorbic Acid (Vitamin C) 500 mg DAILY GT 05/26/17 09:00 06/25/17 08:59 05/26/17 09:17 Carvedilol (Coreg) 3.125 mg Q12HR GT 05/25/17 21:00 06/24/17 20:59 05/26/17 09:17 Colistimethate Sodium (Colistin *inhalation use only*) 150 mg Q12HR@10,22 INH 05/25/17 22:00 05/27/17 23:59 05/26/17 09:34 Dextrose (D5W 1000ml) 1,000 ml @ 50 mls/hr Q20H IV 05/26/17 14:30 06/25/17 14:29 05/26/17 14:36 Dextrose (Dextrose 50%) STAT PRN IV Hypoglycemia 05/25/17 16:00 06/24/17 15:59 Furosemide (Lasix) 60 mg DAILY GT 05/26/17 09:00 06/25/17 08:59 05/26/17 09:18 Heparin Sodium (Porcine) (Heparin 5000 units/ml) 5,000 units EVERY 12 HOURS SUBQ 05/25/17 21:00 06/24/17 20:59 05/26/17 09:20 Levetiracetam (Keppra) 500 mg Q12HR GT 05/25/17 21:00 06/24/17 20:59 05/26/17 09:17 Meropenem 500 mg/ Sodium Chloride 55 ml @ 110 mls/hr EVERY 8 HOURS IVPB 05/25/17 22:00 05/27/17 23:59 05/26/17 13:35 Ondansetron HCl (Zofran) 4 mg Q6H PRN IVP Nausea & Vomiting 05/25/17 16:15 06/24/17 16:14 Polyethylene Glycol (Miralax) 17 gm DAILYPRN PRN GT Constipation 05/25/17 16:00 06/24/17 15:59 Sodium Hypochlorite (Dakin's Half Strength) 1 applic DAILY TOPIC 05/26/17 09:00 06/25/17 08:59 05/26/17 09:19 Spironolactone 25 mg 25 mg DAILY GT 05/26/17 09:00 06/25/17 08:59 05/26/17 09:17 Tigecycline/ Dextrose (Tygacil/D5W) 110 ml @ 220 mls/hr EVERY 12 HOURS IVPB 05/25/17 21:00 05/27/17 23:59 05/26/17 09:18 Colby Friend M.D. May 26, 2017 17:21
--- NOTE | 2017-05-26 18:37 | Pulmonology Progress Note ---
Assessment/Plan Problems: (1) Acute on chronic respiratory failure (2) Anemia (3) Right pulmonary infiltrate on CXR (4) Chronic respiratory acidosis (5) Feeding by G-tube (6) EF of 30 Assessment/Plan continue IV Tygacil and inhaled Colistin d# 13 / 14 , continue Merrem d# 10 Assessment/Plan: persistent fever with increasing wbc, lowry culture continue Tygacil, Colistin & Meropenem Respiratory: monitor respiratory rate, adjust FIO2 Cardiac: continue to monitor HR/BP, other - still tachycardic Renal: F/U I&O, keep IV fluid Infectious Disease: check cultures Gastrointestinal: continue feedings/current rate Endocrine: monitor blood sugar, check TSH, check HgA1C, continue sliding scale insulin Hematologic: transfuse if hgb<8.5 Neurologic: PRN Ativan, PRN Morphine, keep patient comfortable Affect: PRN ativan Prophylaxis: Protonix, Heparin Notes Reviewed: tie man, renal Discussed with: nurses, consultants, case management assistant Subjective ROS Limited/Unobtainable: Yes Allergies: Coded Allergies: No Known Allergies (Unverified , 03/07/17) Objective Last 24 Hour Vital Signs Date Time Temp Pulse Resp B/P Pulse Ox O2 Delivery O2 Flow Rate FiO2 05/26/17 17:08 128 21 40 05/26/17 16:00 99.0 120 25 104/70 100 Mechanical Ventilator 40 05/26/17 16:00 40 05/26/17 16:00 128 05/26/17 15:30 128 21 40 05/26/17 12:50 123 22 40 05/26/17 12:00 97.9 121 20 108/77 100 Mechanical Ventilator 40 05/26/17 12:00 119 05/26/17 12:00 40 05/26/17 10:40 122 27 40 05/26/17 09:45 124 22 100 Mechanical Ventilator 40 05/26/17 09:35 127 27 100 Mechanical Ventilator 40 05/26/17 09:26 125 22 40 05/26/17 09:17 124 103/71 05/26/17 08:00 126 05/26/17 08:00 98.1 124 21 103/71 100 Mechanical Ventilator 40 05/26/17 08:00 40 05/26/17 07:08 126 28 40 05/26/17 04:41 132 27 40 05/26/17 04:00 40 05/26/17 04:00 131 05/26/17 03:03 98.4 136 22 125/85 100 Mechanical Ventilator 40 05/26/17 03:02 136 33 40 05/26/17 01:52 133 21 40 05/26/17 00:00 40 05/26/17 00:00 127 05/25/17 23:43 97.9 127 21 109/74 100 Mechanical Ventilator 40 05/25/17 22:46 127 23 40 05/25/17 22:00 127 22 100 Mechanical Ventilator 40 05/25/17 21:49 124 22 100 Mechanical Ventilator 40 05/25/17 21:49 40 05/25/17 21:30 124 22 40 05/25/17 21:00 124 106/72 05/25/17 20:00 118 05/25/17 19:56 40 05/25/17 19:54 98.1 120 20 106/72 100 Mechanical Ventilator 40 05/25/17 19:30 116 25 40 Intake and Output 05/25/17 05/26/17 19:00 07:00 Intake Total 1340 ml 1510 ml Output Total 835 ml 400 ml Balance 505 ml 1110 ml Intake Free Water 300 ml 400 ml IV Total 165 ml 220 ml Tube Feeding 780 ml 650 ml Other 95 ml 240 ml Output Urine Total 435 ml Stool Total 400 ml 400 ml General Appearance: cachetic HEENT: normocephalic, atraumatic Respiratory/Chest: chest wall non-tender, lungs clear Cardiovascular: normal peripheral pulses, normal rate Abdomen: normal bowel sounds, soft, non tender Genitourinary: normal external genitalia Extremities: no cyanosis Laboratory Tests 05/26/17 11:20: White Blood Count 18.0H, Red Blood Count 3.82L, Hemoglobin 10.5L, Hematocrit 35.0L, Mean Corpuscular Volume 91, Mean Corpuscular Hemoglobin 27.5, Mean Corpuscular Hemoglobin Concent 30.0L, Red Cell Distribution Width 17.7H, Platelet Count 489H, Mean Platelet Volume 7.6, Neutrophils (%) (Auto) , Lymphocytes (%) (Auto) , Monocytes (%) (Auto) , Eosinophils (%) (Auto) , Basophils (%) (Auto) , Differential Total Cells Counted 100, Neutrophils % ( Manual) 85H, Lymphocytes % (Manual) 9L, Monocytes % (Manual) 6, Eosinophils % ( Manual) 0, Basophils % (Manual) 0, Band Neutrophils 0, Platelet Estimate Adequate, Platelet Morphology Normal, Hypochromasia 1+, Anisocytosis 1+, Sodium Level 161*H, Potassium Level 4.0, Chloride Level 121H, Carbon Dioxide Level 31H , Anion Gap 9, Blood Urea Nitrogen 95H, Creatinine 0.9, Estimat Glomerular Filtration Rate > 60, Glucose Level 140H, Calcium Level 8.8 Current Medications Medications (Trade) Dose Ordered Sig/Tameka Route PRN Reason Start Time Stop Time Status Last Admin Dose Admin Acetaminophen (Tylenol) 650 mg Q4H PRN ORAL T>100.5 05/25/17 16:00 06/24/17 15:59 Ascorbic Acid (Vitamin C) 500 mg DAILY GT 05/26/17 09:00 06/25/17 08:59 05/26/17 09:17 Carvedilol (Coreg) 3.125 mg Q12HR GT 05/25/17 21:00 06/24/17 20:59 05/26/17 09:17 Colistimethate Sodium (Colistin *inhalation use only*) 150 mg Q12HR@10,22 INH 05/25/17 22:00 05/27/17 23:59 05/26/17 09:34 Dextrose (D5W 1000ml) 1,000 ml @ 50 mls/hr Q20H IV 05/26/17 14:30 06/25/17 14:29 05/26/17 14:36 Dextrose (Dextrose 50%) STAT PRN IV Hypoglycemia 05/25/17 16:00 06/24/17 15:59 Furosemide (Lasix) 60 mg DAILY GT 05/26/17 09:00 06/25/17 08:59 05/26/17 09:18 Heparin Sodium (Porcine) (Heparin 5000 units/ml) 5,000 units EVERY 12 HOURS SUBQ 05/25/17 21:00 06/24/17 20:59 05/26/17 09:20 Levetiracetam (Keppra) 500 mg Q12HR GT 05/25/17 21:00 06/24/17 20:59 05/26/17 09:17 Meropenem 500 mg/ Sodium Chloride 55 ml @ 110 mls/hr EVERY 8 HOURS IVPB 05/25/17 22:00 05/27/17 23:59 05/26/17 13:35 Ondansetron HCl (Zofran) 4 mg Q6H PRN IVP Nausea & Vomiting 05/25/17 16:15 06/24/17 16:14 Polyethylene Glycol (Miralax) 17 gm DAILYPRN PRN GT Constipation 05/25/17 16:00 06/24/17 15:59 Sodium Hypochlorite (Dakin's Half Strength) 1 applic DAILY TOPIC 05/26/17 09:00 06/25/17 08:59 05/26/17 09:19 Spironolactone 25 mg 25 mg DAILY GT 05/26/17 09:00 06/25/17 08:59 05/26/17 09:17 Tigecycline/ Dextrose (Tygacil/D5W) 110 ml @ 220 mls/hr EVERY 12 HOURS IVPB 05/25/17 21:00 05/27/17 23:59 05/26/17 09:18 ODETTE SMILEY May 26, 2017 18:37
--- NOTE | 2017-05-26 19:57 | Cardiology Progress Note ---
Assessment/Plan Assessment/Plan paf cardiomyopathy chf chronic respirator failure chronic diarreha hypernatremia amiod daily tele reviwed sinus / sinu tachy abx dc diuretic needs mroe free water is on bb acei in future Subjective ROS Limited/Unobtainable: Yes Subjective vent Objective Last 24 Hour Vital Signs Date Time Temp Pulse Resp B/P Pulse Ox O2 Delivery O2 Flow Rate FiO2 05/26/17 19:19 130 25 40 05/26/17 17:08 128 21 40 05/26/17 16:00 99.0 120 25 104/70 100 Mechanical Ventilator 40 05/26/17 16:00 40 05/26/17 16:00 128 05/26/17 15:30 128 21 40 05/26/17 12:50 123 22 40 05/26/17 12:00 97.9 121 20 108/77 100 Mechanical Ventilator 40 05/26/17 12:00 119 05/26/17 12:00 40 05/26/17 10:40 122 27 40 05/26/17 09:45 124 22 100 Mechanical Ventilator 40 05/26/17 09:35 127 27 100 Mechanical Ventilator 40 05/26/17 09:26 125 22 40 05/26/17 09:17 124 103/71 05/26/17 08:00 126 05/26/17 08:00 98.1 124 21 103/71 100 Mechanical Ventilator 40 05/26/17 08:00 40 05/26/17 07:08 126 28 40 05/26/17 04:41 132 27 40 05/26/17 04:00 40 05/26/17 04:00 131 05/26/17 03:03 98.4 136 22 125/85 100 Mechanical Ventilator 40 05/26/17 03:02 136 33 40 05/26/17 01:52 133 21 40 05/26/17 00:00 40 05/26/17 00:00 127 05/25/17 23:43 97.9 127 21 109/74 100 Mechanical Ventilator 40 05/25/17 22:46 127 23 40 05/25/17 22:00 127 22 100 Mechanical Ventilator 40 05/25/17 21:49 124 22 100 Mechanical Ventilator 40 05/25/17 21:49 40 05/25/17 21:30 124 22 40 05/25/17 21:00 124 106/72 7/9/17 20:00 118 05/25/17 19:56 40 General Appearance: on vent, isolation precautions, other - cachectic Neck: supple Cardiovascular: normal rate, tachycardia Respiratory/Chest: rhonchi - bilaterally Abdomen: normal bowel sounds, non tender, soft Extremities: no swelling Intake and Output 05/25/17 05/26/17 19:00 07:00 Intake Total 1340 ml 1510 ml Output Total 835 ml 400 ml Balance 505 ml 1110 ml Intake Free Water 300 ml 400 ml IV Total 165 ml 220 ml Tube Feeding 780 ml 650 ml Other 95 ml 240 ml Output Urine Total 435 ml Stool Total 400 ml 400 ml Laboratory Tests Test 05/26/17 11:20 White Blood Count 18.0 K/UL (4.8-10.8) H Red Blood Count 3.82 M/UL (4.70-6.10) L Hemoglobin 10.5 G/DL (14.2-18.0) L Hematocrit 35.0 % (42.0-52.0) L Mean Corpuscular Volume 91 FL (80-99) Mean Corpuscular Hemoglobin 27.5 PG (27.0-31.0) Mean Corpuscular Hemoglobin Concent 30.0 G/DL (32.0-36.0) L Red Cell Distribution Width 17.7 % (11.6-14.8) H Platelet Count 489 K/UL (150-450) H Mean Platelet Volume 7.6 FL (6.5-10.1) Neutrophils (%) (Auto) % (45.0-75.0) Lymphocytes (%) (Auto) % (20.0-45.0) Monocytes (%) (Auto) % (1.0-10.0) Eosinophils (%) (Auto) % (0.0-3.0) Basophils (%) (Auto) % (0.0-2.0) Differential Total Cells Counted 100 Neutrophils % (Manual) 85 % (45-75) H Lymphocytes % (Manual) 9 % (20-45) L Monocytes % (Manual) 6 % (1-10) Eosinophils % (Manual) 0 % (0-3) Basophils % (Manual) 0 % (0-2) Band Neutrophils 0 % (0-8) Platelet Estimate Adequate Platelet Morphology Normal Hypochromasia 1+ Anisocytosis 1+ Sodium Level 161 mEQ/L (135-145) *H Potassium Level 4.0 mEQ/L (3.4-4.9) Chloride Level 121 mEQ/L (98-107) H Carbon Dioxide Level 31 mEQ/L (20-30) H Anion Gap 9 (5-15) Blood Urea Nitrogen 95 mg/dL (7-23) H Creatinine 0.9 mg/dL (0.7-1.2) Estimat Glomerular Filtration Rate > 60 mL/min (>60) Glucose Level 140 mg/dL (74-106) H Calcium Level 8.8 mg/dL (8.6-10.2) CELI FALCON May 26, 2017 19:57
[2017-05-26 20:00] VITALS: BP 153/67
[2017-05-27] VITALS (7 sets, daily range): BP systolic 86–117; BP diastolic 54–71
[2017-05-27 05:20] LABS: MEAN CORPUSCULAR HEMOGLOBIN 27.4 PG (27.0-31.0); MEAN CORPUSCULAR HGB CONC 29.7 G/DL (32.0-36.0); MEAN CORPUSCULAR VOLUME 92 FL (80-99); MEAN PLATELET VOLUME 7.5 FL (6.5-10.1); PLATELET COUNT 506 K/UL (150-450); RED BLOOD COUNT 3.59 M/UL (4.70-6.10); RED CELL DISTRIBUTION WIDTH 18.4 % (11.6-14.8); WHITE BLOOD COUNT 20.2 K/UL (4.8-10.8)
[2017-05-27 05:38] LABS: CALCIUM 8.9 mg/dL (8.6-10.2); CARBON DIOXIDE 29 mEQ/L (20-30); CHLORIDE 124 mEQ/L (98-107); CREATININE 0.9 mg/dL (0.7-1.2); GLOMERULAR FILTRATION RATE > 60 mL/min (>60); HEMOLYSIS 4; POTASSIUM 4.7 mEQ/L (3.4-4.9)
[2017-05-27 05:44] LABS: ANION GAP 11 (5-15)
[2017-05-27] MEDS: Meropenem 500 MG in NS 55 ML IVPB SCH ×3 (05:44→22:08)
[2017-05-27 06:29] LABS: SODIUM 164 mEQ/L (135-145)
[2017-05-27] MEDS: Colistin for inhalation INH SCH ×2 (07:09→22:52)
[2017-05-27] MEDS: levETIRAcetam 500mg/5ml Liquid GT SCH ×2 (08:17→20:46)
[2017-05-27] MEDS: Tigecycline 50 MG in D5W 110 ML IVPB SCH ×2 (08:17→20:46)
[2017-05-27] MEDS: Ascorbic Acid 500mg tab GT SCH (08:18)
[2017-05-27] MEDS: Spironolactone 25mg tab GT SCH (08:18)
[2017-05-27] MEDS: Dakin's 0.25% (Half Strength) 16oz TOPIC SCH (08:19)
[2017-05-27] MEDS: Heparin 5000 units/ml inj SUBQ SCH ×2 (08:20→20:47)
[2017-05-27 08:21] LABS: EOSINOPHILS % (MANUAL) 1 % (0-3); LYMPHOCYTES % (MANUAL) 11 % (20-45); NEUTROPHILS % (MANUAL) 80 % (45-75); NUCLEATED RED BLOOD CELLS 1 /100 WBC; TOTAL CELLS COUNTED 100
[2017-05-27 08:22] LABS: BAND NEUTROPHILS % (MANUAL) 0 % (0-8); BASOPHILS % (MANUAL) 0 % (0-2); PLATELET ESTIMATE INCREASED; PLATELET MORPHOLOGY NORMAL
[2017-05-27 08:23] LABS: ANISOCYTOSIS 2+; HYPOCHROMASIA 1+
--- NOTE | 2017-05-27 08:40 | Pulmonology Progress Note ---
Assessment/Plan Problems: (1) Acute on chronic respiratory failure (2) Anemia (3) Right pulmonary infiltrate on CXR (4) Chronic respiratory acidosis (5) Feeding by G-tube (6) EF of 30 Assessment/Plan continue IV Tygacil and inhaled Colistin d# 13 / 14 , continue Merrem d# 10 Assessment/Plan: persistent fever with increasing wbc, lowry culture continue Tygacil, Colistin & Meropenem Respiratory: monitor respiratory rate, adjust FIO2, ABG Cardiac: continue to monitor HR/BP, other - still rapid heart rate Renal: F/U I&O Infectious Disease: check cultures, continue antibiotics Gastrointestinal: continue feedings/current rate Endocrine: monitor blood sugar, continue sliding scale insulin Hematologic: monitor H/H, transfuse if hgb<8.5 Neurologic: PRN Morphine, keep patient comfortable Affect: PRN ativan Prophylaxis: Protonix, Heparin Notes Reviewed: certified diabetes educator, cardio, renal Discussed with: nurses, telehealth case manager Subjective ROS Limited/Unobtainable: No Constitutional: Reports: no symptoms HEENT: Repors: no symptoms Respiratory: Reports: no symptoms Allergies: Coded Allergies: No Known Allergies (Unverified , 03/07/17) Objective Last 24 Hour Vital Signs Date Time Temp Pulse Resp B/P Pulse Ox O2 Delivery O2 Flow Rate FiO2 05/27/17 08:18 141 93/54 05/27/17 07:19 140 29 100 Mechanical Ventilator 40 05/27/17 07:09 140 29 40 05/27/17 07:09 140 29 100 Mechanical Ventilator 40 05/27/17 05:20 120 22 40 05/27/17 04:00 139 05/27/17 04:00 40 05/27/17 04:00 98.2 138 28 106/54 100 Mechanical Ventilator 40 05/27/17 03:10 131 26 40 05/27/17 01:09 131 27 40 05/27/17 00:03 98.9 130 26 101/71 100 Mechanical Ventilator 40 05/27/17 00:00 126 05/27/17 00:00 40 05/26/17 23:25 112 22 40 05/26/17 21:58 120 20 100 Mechanical Ventilator 40 05/26/17 21:49 122 25 40 05/26/17 21:48 122 6 100 Mechanical Ventilator 40 05/26/17 21:01 128 153/67 05/26/17 20:00 134 7/10/17 20:00 98.5 132 27 153/67 100 Mechanical Ventilator 40 05/26/17 20:00 40 05/26/17 19:19 130 25 40 05/26/17 17:08 128 21 40 05/26/17 16:00 99.0 120 25 104/70 100 Mechanical Ventilator 40 05/26/17 16:00 40 05/26/17 16:00 128 05/26/17 15:30 128 21 40 05/26/17 12:50 123 22 40 05/26/17 12:00 97.9 121 20 108/77 100 Mechanical Ventilator 40 05/26/17 12:00 119 05/26/17 12:00 40 05/26/17 10:40 122 27 40 05/26/17 09:45 124 22 100 Mechanical Ventilator 40 05/26/17 09:35 127 27 100 Mechanical Ventilator 40 05/26/17 09:26 125 22 40 05/26/17 09:17 124 103/71 Intake and Output 05/26/17 05/27/17 19:00 07:00 Intake Total 1345 ml 1025 ml Output Total 900 ml 500 ml Balance 445 ml 525 ml Intake Free Water 150 ml 100 ml IV Total 415 ml 600 ml Tube Feeding 780 ml 325 ml Output Urine Total 900 ml 500 ml General Appearance: cachetic HEENT: normocephalic, atraumatic Respiratory/Chest: chest wall non-tender, lungs clear Laboratory Tests 05/26/17 11:20: White Blood Count 18.0H, Red Blood Count 3.82L, Hemoglobin 10.5L, Hematocrit 35.0L, Mean Corpuscular Volume 91, Mean Corpuscular Hemoglobin 27.5, Mean Corpuscular Hemoglobin Concent 30.0L, Red Cell Distribution Width 17.7H, Platelet Count 489H, Mean Platelet Volume 7.6, Neutrophils (%) (Auto) , Lymphocytes (%) (Auto) , Monocytes (%) (Auto) , Eosinophils (%) (Auto) , Basophils (%) (Auto) , Differential Total Cells Counted 100, Neutrophils % ( Manual) 85H, Lymphocytes % (Manual) 9L, Monocytes % (Manual) 6, Eosinophils % ( Manual) 0, Basophils % (Manual) 0, Band Neutrophils 0, Platelet Estimate Adequate, Platelet Morphology Normal, Hypochromasia 1+, Anisocytosis 1+, Sodium Level 161*H, Potassium Level 4.0, Chloride Level 121H, Carbon Dioxide Level 31H , Anion Gap 9, Blood Urea Nitrogen 95H, Creatinine 0.9, Estimat Glomerular Filtration Rate > 60, Glucose Level 140H, Calcium Level 8.8 05/27/17 04:00: White Blood Count 20.2H, Red Blood Count 3.59L, Hemoglobin 9.8L, Hematocrit 33.1L, Mean Corpuscular Volume 92, Mean Corpuscular Hemoglobin 27.4, Mean Corpuscular Hemoglobin Concent 29.7L, Red Cell Distribution Width 18.4H, Platelet Count 506H, Mean Platelet Volume 7.5, Neutrophils (%) (Auto) , Lymphocytes (%) (Auto) , Monocytes (%) (Auto) , Eosinophils (%) (Auto) , Basophils (%) (Auto) , Differential Total Cells Counted 100, Neutrophils % ( Manual) 80H, Lymphocytes % (Manual) 11L, Monocytes % (Manual) 8, Eosinophils % ( Manual) 1, Basophils % (Manual) 0, Band Neutrophils 0, Platelet Estimate IncreasedH, Platelet Morphology Normal, Hypochromasia 1+, Anisocytosis 2+, Sodium Level 164*H, Potassium Level 4.7, Chloride Level 124H, Carbon Dioxide Level 29, Anion Gap 11, Blood Urea Nitrogen 88H, Creatinine 0.9, Estimat Glomerular Filtration Rate > 60, Glucose Level 134H, Calcium Level 8.9, Nucleated Red Blood Cells 1 Current Medications Medications (Trade) Dose Ordered Sig/Tameka Route PRN Reason Start Time Stop Time Status Last Admin Dose Admin Acetaminophen 650 mg 650 mg Q4H PRN ORAL Mild Pain/Temp > 100.5 05/27/17 12:00 06/26/17 11:59 UNV Ascorbic Acid (Vitamin C) 500 mg DAILY GT 05/26/17 09:00 06/25/17 08:59 05/27/17 08:18 Carvedilol (Coreg) 3.125 mg Q12HR GT 05/25/17 21:00 06/24/17 20:59 05/27/17 08:18 Colistimethate Sodium (Colistin *inhalation use only*) 150 mg Q12HR@10,22 INH 05/25/17 22:00 05/27/17 23:59 7/11/17 07:09 Dextrose (D5W 1000ml) 1,000 ml @ 125 mls/hr Q8H IV 05/27/17 14:30 06/26/17 14:29 UNV Dextrose (Dextrose 50%) STAT PRN IV Hypoglycemia 05/25/17 16:00 06/24/17 15:59 Furosemide (Lasix) 60 mg DAILY GT 05/26/17 09:00 06/25/17 08:59 05/27/17 08:18 Heparin Sodium (Porcine) (Heparin 5000 units/ml) 5,000 units EVERY 12 HOURS SUBQ 05/25/17 21:00 06/24/17 20:59 05/27/17 08:20 Levetiracetam (Keppra) 500 mg Q12HR GT 05/25/17 21:00 06/24/17 20:59 05/27/17 08:17 Meropenem 500 mg/ Sodium Chloride 55 ml @ 110 mls/hr EVERY 8 HOURS IVPB 05/25/17 22:00 05/27/17 23:59 05/27/17 05:44 Ondansetron HCl (Zofran) 4 mg Q6H PRN IVP Nausea & Vomiting 05/25/17 16:15 06/24/17 16:14 Polyethylene Glycol (Miralax) 17 gm DAILYPRN PRN GT Constipation 05/25/17 16:00 06/24/17 15:59 Sodium Hypochlorite (Dakin's Half Strength) 1 applic DAILY TOPIC 05/26/17 09:00 06/25/17 08:59 05/27/17 08:19 Spironolactone (Aldactone) 25 mg DAILY GT 05/26/17 09:00 06/25/17 08:59 05/27/17 08:18 Tigecycline/ Dextrose (Tygacil/D5W) 110 ml @ 220 mls/hr EVERY 12 HOURS IVPB 05/25/17 21:00 05/27/17 23:59 05/27/17 08:17 ODETTE SMILEY May 27, 2017 08:40
--- NOTE | 2017-05-27 09:12 | GI Progress Note ---
Assessment/Plan Problems: (1) Anemia ICD Codes: D64.9 - Anemia, unspecified SNOMED: 233871911 Qualifiers: Qualified Codes: D64.9 - Anemia, unspecified (2) EF of 30 (3) Feeding by G-tube ICD Codes: Z93.1 - Gastrostomy status SNOMED: 136503006, 278256124 (4) Transaminitis ICD Codes: R74.0 - Nonspecific elevation of levels of transaminase and lactic acid dehydrogenase [LDH] SNOMED: 642207268 (5) Leukocytosis ICD Codes: D72.829 - Elevated white blood cell count, unspecified SNOMED: 809768341, 195536756 Status: unchanged Status Narrative Discussed with Dr. Alex. Assessment/Plan occult blood stool >> negative x 2 stable H&H, transfuse prn GT replaced. GTFs per dietary, monitor residuals PPI for GI prophylaxis abx fu labs Subjective Subjective limited Objective Last 24 Hour Vital Signs Date Time Temp Pulse Resp B/P Pulse Ox O2 Delivery O2 Flow Rate FiO2 05/27/17 08:48 140 16 40 05/27/17 08:18 141 93/54 05/27/17 08:00 138 05/27/17 07:19 140 29 100 Mechanical Ventilator 40 05/27/17 07:09 140 29 40 05/27/17 07:09 140 29 100 Mechanical Ventilator 40 05/27/17 05:20 120 22 40 05/27/17 04:00 139 05/27/17 04:00 40 05/27/17 04:00 98.2 138 28 106/54 100 Mechanical Ventilator 40 05/27/17 03:10 131 26 40 05/27/17 01:09 131 27 40 05/27/17 00:03 98.9 130 26 101/71 100 Mechanical Ventilator 40 05/27/17 00:00 126 05/27/17 00:00 40 05/26/17 23:25 112 22 40 05/26/17 21:58 120 20 100 Mechanical Ventilator 40 05/26/17 21:49 122 25 40 05/26/17 21:48 122 6 100 Mechanical Ventilator 40 05/26/17 21:01 128 153/67 05/26/17 20:00 134 05/26/17 20:00 98.5 132 27 153/67 100 Mechanical Ventilator 40 05/26/17 20:00 40 05/26/17 19:19 130 25 40 05/26/17 17:08 128 21 40 05/26/17 16:00 99.0 120 25 104/70 100 Mechanical Ventilator 40 05/26/17 16:00 40 05/26/17 16:00 128 05/26/17 15:30 128 21 40 05/26/17 12:50 123 22 40 05/26/17 12:00 97.9 121 20 108/77 100 Mechanical Ventilator 40 05/26/17 12:00 119 05/26/17 12:00 40 05/26/17 10:40 122 27 40 05/26/17 09:45 124 22 100 Mechanical Ventilator 40 05/26/17 09:35 127 27 100 Mechanical Ventilator 40 05/26/17 09:26 125 22 40 05/26/17 09:17 124 103/71 Intake and Output 05/26/17 05/27/17 19:00 07:00 Intake Total 1345 ml 1025 ml Output Total 900 ml 500 ml Balance 445 ml 525 ml Intake Free Water 150 ml 100 ml IV Total 415 ml 600 ml Tube Feeding 780 ml 325 ml Output Urine Total 900 ml 500 ml Laboratory Tests Test 05/26/17 11:20 05/27/17 04:00 White Blood Count 18.0 K/UL (4.8-10.8) H 20.2 K/UL (4.8-10.8) H Red Blood Count 3.82 M/UL (4.70-6.10) L 3.59 M/UL (4.70-6.10) L Hemoglobin 10.5 G/DL (14.2-18.0) L 9.8 G/DL (14.2-18.0) L Hematocrit 35.0 % (42.0-52.0) L 33.1 % (42.0-52.0) L Mean Corpuscular Volume 91 FL (80-99) 92 FL (80-99) Mean Corpuscular Hemoglobin 27.5 PG (27.0-31.0) 27.4 PG (27.0-31.0) Mean Corpuscular Hemoglobin Concent 30.0 G/DL (32.0-36.0) L 29.7 G/DL (32.0-36.0) L Red Cell Distribution Width 17.7 % (11.6-14.8) H 18.4 % (11.6-14.8) H Platelet Count 489 K/UL (150-450) H 506 K/UL (150-450) H Mean Platelet Volume 7.6 FL (6.5-10.1) 7.5 FL (6.5-10.1) Neutrophils (%) (Auto) % (45.0-75.0) % (45.0-75.0) Lymphocytes (%) (Auto) % (20.0-45.0) % (20.0-45.0) Monocytes (%) (Auto) % (1.0-10.0) % (1.0-10.0) Eosinophils (%) (Auto) % (0.0-3.0) % (0.0-3.0) Basophils (%) (Auto) % (0.0-2.0) % (0.0-2.0) Differential Total Cells Counted 100 100 Neutrophils % (Manual) 85 % (45-75) H 80 % (45-75) H Lymphocytes % (Manual) 9 % (20-45) L 11 % (20-45) L Monocytes % (Manual) 6 % (1-10) 8 % (1-10) Eosinophils % (Manual) 0 % (0-3) 1 % (0-3) Basophils % (Manual) 0 % (0-2) 0 % (0-2) Band Neutrophils 0 % (0-8) 0 % (0-8) Platelet Estimate Adequate Increased H Platelet Morphology Normal Normal Hypochromasia 1+ 1+ Anisocytosis 1+ 2+ Sodium Level 161 mEQ/L (135-145) *H 164 mEQ/L (135-145) *H Potassium Level 4.0 mEQ/L (3.4-4.9) 4.7 mEQ/L (3.4-4.9) Chloride Level 121 mEQ/L (98-107) H 124 mEQ/L (98-107) H Carbon Dioxide Level 31 mEQ/L (20-30) H 29 mEQ/L (20-30) Anion Gap 9 (5-15) 11 (5-15) Blood Urea Nitrogen 95 mg/dL (7-23) H 88 mg/dL (7-23) H Creatinine 0.9 mg/dL (0.7-1.2) 0.9 mg/dL (0.7-1.2) Estimat Glomerular Filtration Rate > 60 mL/min (>60) > 60 mL/min (>60) Glucose Level 140 mg/dL (74-106) H 134 mg/dL (74-106) H Calcium Level 8.8 mg/dL (8.6-10.2) 8.9 mg/dL (8.6-10.2) Nucleated Red Blood Cells 1 /100 WBC Height (Feet): 5 Height (Inches): 7.00 Weight (Pounds): 126 General Appearance: no apparent distress, alert, thin Cardiovascular: normal rate Respiratory/Chest: other - [facility] vent Abdominal Exam: GT site - c/d/i Lani Last N.P. May 27, 2017 09:12
--- NOTE | 2017-05-27 10:49 | Infectious Diseases Prog Note ---
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 - SCx : MDR - ACB , KPC , SP Rx - CXR: Worsening atelectasis versus pneumonia right lung base - h/o Provid a+ XDR PSA and Providencia // Stage IV sacral decubitus, not grossly infected - surveillance WCx KPC and ACB, strep, CONS ( colonizer ) - h/o polymicrobial MDR colonization // HCV Ab+ - Abdominal ultrasound of liver : unremarkable // Probable sepsis, SP // Leukocytosis: persistent CT of C/A/P : No evidence of abscess , Pulmonary bibasal parenchymal consolidation // Low grade fever, SP Severe anemia SP PRBCs Sinus tachycardia Chronic VDRF SP trach, PEG h/o cardiac arrest, anoxic encephalopathy Cardiomyopathy SP defibrillator placement Paroxysmal atrial fibrillation Cachexia / severe protein-calorie malnutrition OR resident NKDA Full Code PLAN: DC Tygacil and Colistin d# 14 / , add Merrem d# / and monitor pt off of AB Rx ( 05/15 SP IV vancomycin, Zosyn d# 5 ) ( SP Merrem and Colistin INH d# 6 / ) ( 03/13 SP vancomycin and Zosyn d# 5 ) Monitor CBC, temperatures Monitor CMP Monitor CXR vent support, trach care, aspiration precautions wound care transfuse prn Subjective Constitutional: Denies: anorexia, chills, drenching sweats, fatigue, fever, no symptoms, other Allergies: Coded Allergies: No Known Allergies (Unverified , 03/07/17) Subjective low grade fever x 1 Objective Vital Signs Last 24 Hour Vital Signs Date Time Temp Pulse Resp B/P Pulse Ox O2 Delivery O2 Flow Rate FiO2 05/27/17 08:48 140 16 40 05/27/17 08:18 141 93/54 05/27/17 08:00 138 05/27/17 08:00 97.9 100 16 93/58 100 Mechanical Ventilator 40 05/27/17 08:00 40 05/27/17 07:19 140 29 100 Mechanical Ventilator 40 05/27/17 07:09 140 29 40 05/27/17 07:09 140 29 100 Mechanical Ventilator 40 05/27/17 05:20 120 22 40 05/27/17 04:00 139 05/27/17 04:00 40 05/27/17 04:00 98.2 138 28 106/54 100 Mechanical Ventilator 40 05/27/17 03:10 131 26 40 05/27/17 01:09 131 27 40 05/27/17 00:03 98.9 130 26 101/71 100 Mechanical Ventilator 40 05/27/17 00:00 126 05/27/17 00:00 40 05/26/17 23:25 112 22 40 05/26/17 21:58 120 20 100 Mechanical Ventilator 40 05/26/17 21:49 122 25 40 05/26/17 21:48 122 6 100 Mechanical Ventilator 40 05/26/17 21:01 128 153/67 05/26/17 20:00 134 05/26/17 20:00 98.5 132 27 153/67 100 Mechanical Ventilator 40 05/26/17 20:00 40 05/26/17 19:19 130 25 40 05/26/17 17:08 128 21 40 05/26/17 16:00 99.0 120 25 104/70 100 Mechanical Ventilator 40 05/26/17 16:00 40 05/26/17 16:00 128 05/26/17 15:30 128 21 40 05/26/17 12:50 123 22 40 05/26/17 12:00 97.9 121 20 108/77 100 Mechanical Ventilator 40 05/26/17 12:00 119 05/26/17 12:00 40 Height (Feet): 5 Height (Inches): 7.00 Weight (Pounds): 126 HEENT: anicteric Respiratory/Chest: no respiratory distress Cardiovascular: regular rhythm Abdomen: non distended Laboratory Tests Test 05/26/17 11:20 05/27/17 04:00 White Blood Count 18.0 K/UL (4.8-10.8) H 20.2 K/UL (4.8-10.8) H Red Blood Count 3.82 M/UL (4.70-6.10) L 3.59 M/UL (4.70-6.10) L Hemoglobin 10.5 G/DL (14.2-18.0) L 9.8 G/DL (14.2-18.0) L Hematocrit 35.0 % (42.0-52.0) L 33.1 % (42.0-52.0) L Mean Corpuscular Volume 91 FL (80-99) 92 FL (80-99) Mean Corpuscular Hemoglobin 27.5 PG (27.0-31.0) 27.4 PG (27.0-31.0) Mean Corpuscular Hemoglobin Concent 30.0 G/DL (32.0-36.0) L 29.7 G/DL (32.0-36.0) L Red Cell Distribution Width 17.7 % (11.6-14.8) H 18.4 % (11.6-14.8) H Platelet Count 489 K/UL (150-450) H 506 K/UL (150-450) H Mean Platelet Volume 7.6 FL (6.5-10.1) 7.5 FL (6.5-10.1) Neutrophils (%) (Auto) % (45.0-75.0) % (45.0-75.0) Lymphocytes (%) (Auto) % (20.0-45.0) % (20.0-45.0) Monocytes (%) (Auto) % (1.0-10.0) % (1.0-10.0) Eosinophils (%) (Auto) % (0.0-3.0) % (0.0-3.0) Basophils (%) (Auto) % (0.0-2.0) % (0.0-2.0) Differential Total Cells Counted 100 100 Neutrophils % (Manual) 85 % (45-75) H 80 % (45-75) H Lymphocytes % (Manual) 9 % (20-45) L 11 % (20-45) L Monocytes % (Manual) 6 % (1-10) 8 % (1-10) Eosinophils % (Manual) 0 % (0-3) 1 % (0-3) Basophils % (Manual) 0 % (0-2) 0 % (0-2) Band Neutrophils 0 % (0-8) 0 % (0-8) Platelet Estimate Adequate Increased H Platelet Morphology Normal Normal Hypochromasia 1+ 1+ Anisocytosis 1+ 2+ Sodium Level 161 mEQ/L (135-145) *H 164 mEQ/L (135-145) *H Potassium Level 4.0 mEQ/L (3.4-4.9) 4.7 mEQ/L (3.4-4.9) Chloride Level 121 mEQ/L (98-107) H 124 mEQ/L (98-107) H Carbon Dioxide Level 31 mEQ/L (20-30) H 29 mEQ/L (20-30) Anion Gap 9 (5-15) 11 (5-15) Blood Urea Nitrogen 95 mg/dL (7-23) H 88 mg/dL (7-23) H Creatinine 0.9 mg/dL (0.7-1.2) 0.9 mg/dL (0.7-1.2) Estimat Glomerular Filtration Rate > 60 mL/min (>60) > 60 mL/min (>60) Glucose Level 140 mg/dL (74-106) H 134 mg/dL (74-106) H Calcium Level 8.8 mg/dL (8.6-10.2) 8.9 mg/dL (8.6-10.2) Nucleated Red Blood Cells 1 /100 WBC Current Medications Medications (Trade) Dose Ordered Sig/Tameka Route PRN Reason Start Time Stop Time Status Last Admin Dose Admin Acetaminophen 650 mg 650 mg Q4H PRN ORAL Mild Pain/Temp > 100.5 05/27/17 09:00 06/26/17 08:59 05/27/17 08:55 Ascorbic Acid (Vitamin C) 500 mg DAILY GT 05/26/17 09:00 06/25/17 08:59 05/27/17 08:18 Carvedilol (Coreg) 3.125 mg Q12HR GT 05/25/17 21:00 06/24/17 20:59 05/27/17 08:18 Colistimethate Sodium (Colistin *inhalation use only*) 150 mg Q12HR@10,22 INH 05/25/17 22:00 05/27/17 23:59 05/27/17 07:09 Dextrose (D5W 1000ml) 1,000 ml @ 125 mls/hr Q8H IV 05/27/17 09:00 06/26/17 08:59 05/27/17 08:55 Dextrose (Dextrose 50%) STAT PRN IV Hypoglycemia 05/25/17 16:00 06/24/17 15:59 Heparin Sodium (Porcine) (Heparin 5000 units/ml) 5,000 units EVERY 12 HOURS SUBQ 05/25/17 21:00 06/24/17 20:59 05/27/17 08:20 Levetiracetam (Keppra) 500 mg Q12HR GT 05/25/17 21:00 06/24/17 20:59 05/27/17 08:17 Meropenem 500 mg/ Sodium Chloride 55 ml @ 110 mls/hr EVERY 8 HOURS IVPB 05/25/17 22:00 05/27/17 23:59 05/27/17 05:44 Ondansetron HCl (Zofran) 4 mg Q6H PRN IVP Nausea & Vomiting 05/25/17 16:15 06/24/17 16:14 Polyethylene Glycol (Miralax) 17 gm DAILYPRN PRN GT Constipation 05/25/17 16:00 06/24/17 15:59 Sodium Hypochlorite (Dakin's Half Strength) 1 applic DAILY TOPIC 05/26/17 09:00 06/25/17 08:59 05/27/17 08:19 Spironolactone (Aldactone) 25 mg DAILY GT 05/26/17 09:00 06/25/17 08:59 05/27/17 08:18 Tigecycline/ Dextrose (Tygacil/D5W) 110 ml @ 220 mls/hr EVERY 12 HOURS IVPB 05/25/17 21:00 05/27/17 23:59 05/27/17 08:17 MARCUS PA M.D. May 27, 2017 10:49
--- NOTE | 2017-05-27 19:20 | Cardiology Progress Note ---
Assessment/Plan Assessment/Plan paf cardiomyopathy chf chronic respirator failure chronic diarreha hypernatremia amiod daily tele reviwed sinus / sinus tachy abx off diuretic on free water iv check cxr is on bb acei in future' bp low Subjective ROS Limited/Unobtainable: Yes Subjective vent Objective Last 24 Hour Vital Signs Date Time Temp Pulse Resp B/P Pulse Ox O2 Delivery O2 Flow Rate FiO2 05/27/17 16:48 130 25 40 05/27/17 16:00 98.1 126 28 90/60 100 Mechanical Ventilator 40 05/27/17 16:00 40 05/27/17 16:00 129 05/27/17 15:16 126 22 40 05/27/17 13:00 125 97/62 05/27/17 12:57 127 29 40 05/27/17 12:00 124 05/27/17 12:00 40 05/27/17 12:00 98.4 125 26 86/66 100 Mechanical Ventilator 40 05/27/17 10:32 125 28 40 05/27/17 08:48 140 16 40 05/27/17 08:18 141 93/54 05/27/17 08:00 138 05/27/17 08:00 97.9 100 16 93/58 100 Mechanical Ventilator 40 05/27/17 08:00 40 05/27/17 07:19 140 29 100 Mechanical Ventilator 40 05/27/17 07:09 140 29 40 05/27/17 07:09 140 29 100 Mechanical Ventilator 40 05/27/17 05:20 120 22 40 05/27/17 04:00 139 05/27/17 04:00 40 05/27/17 04:00 98.2 138 28 106/54 100 Mechanical Ventilator 40 05/27/17 03:10 131 26 40 05/27/17 01:09 131 27 40 05/27/17 00:03 98.9 130 26 101/71 100 Mechanical Ventilator 40 05/27/17 00:00 126 05/27/17 00:00 40 05/26/17 23:25 112 22 40 05/26/17 21:58 120 20 100 Mechanical Ventilator 40 05/26/17 21:49 122 25 40 05/26/17 21:48 122 6 100 Mechanical Ventilator 40 05/26/17 21:01 128 153/67 05/26/17 20:00 134 05/26/17 20:00 98.5 132 27 153/67 100 Mechanical Ventilator 40 05/26/17 20:00 40 General Appearance: no apparent distress, on vent, patient on isolation Neck: supple Cardiovascular: normal rate, tachycardia Respiratory/Chest: lungs clear - ant Abdomen: normal bowel sounds, non tender, soft Extremities: no swelling Intake and Output 05/26/17 05/27/17 19:00 07:00 Intake Total 1345 ml 1140 ml Output Total 900 ml 500 ml Balance 445 ml 640 ml Intake Free Water 150 ml 100 ml IV Total 415 ml 650 ml Tube Feeding 780 ml 390 ml Output Urine Total 900 ml 500 ml Laboratory Tests Test 05/27/17 04:00 White Blood Count 20.2 K/UL (4.8-10.8) H Red Blood Count 3.59 M/UL (4.70-6.10) L Hemoglobin 9.8 G/DL (14.2-18.0) L Hematocrit 33.1 % (42.0-52.0) L Mean Corpuscular Volume 92 FL (80-99) Mean Corpuscular Hemoglobin 27.4 PG (27.0-31.0) Mean Corpuscular Hemoglobin Concent 29.7 G/DL (32.0-36.0) L Red Cell Distribution Width 18.4 % (11.6-14.8) H Platelet Count 506 K/UL (150-450) H Mean Platelet Volume 7.5 FL (6.5-10.1) Neutrophils (%) (Auto) % (45.0-75.0) Lymphocytes (%) (Auto) % (20.0-45.0) Monocytes (%) (Auto) % (1.0-10.0) Eosinophils (%) (Auto) % (0.0-3.0) Basophils (%) (Auto) % (0.0-2.0) Differential Total Cells Counted 100 Neutrophils % (Manual) 80 % (45-75) H Lymphocytes % (Manual) 11 % (20-45) L Monocytes % (Manual) 8 % (1-10) Eosinophils % (Manual) 1 % (0-3) Basophils % (Manual) 0 % (0-2) Band Neutrophils 0 % (0-8) Nucleated Red Blood Cells 1 /100 WBC Platelet Estimate Increased H Platelet Morphology Normal Hypochromasia 1+ Anisocytosis 2+ Sodium Level 164 mEQ/L (135-145) *H Potassium Level 4.7 mEQ/L (3.4-4.9) Chloride Level 124 mEQ/L (98-107) H Carbon Dioxide Level 29 mEQ/L (20-30) Anion Gap 11 (5-15) Blood Urea Nitrogen 88 mg/dL (7-23) H Creatinine 0.9 mg/dL (0.7-1.2) Estimat Glomerular Filtration Rate > 60 mL/min (>60) Glucose Level 134 mg/dL (74-106) H Calcium Level 8.9 mg/dL (8.6-10.2) CELI FALCON May 27, 2017 19:20
[2017-05-27 20:18] LABS: ABG ALLEN TEST POSITIVE; ABG BASE EXCESS 6.9; ABG PCO2 50.9 mmHg (35.0-45.0)
[2017-05-28] VITALS (8 sets, daily range): BP systolic 97–126; BP diastolic 53–101
[2017-05-28 05:27] LABS: ALANINE AMINOTRANSFERASE 21 U/L (3-41); ALBUMIN/GLOBULIN RATIO 0.3 (1.0-2.7); ANION GAP 13 (5-15); ASPARTATE AMINO TRANSFERASE 20 U/L (5-40); CALCIUM 8.7 mg/dL (8.6-10.2); CARBON DIOXIDE 27 mEQ/L (20-30); CHLORIDE 116 mEQ/L (98-107); CREATININE 0.8 mg/dL (0.7-1.2); GLOMERULAR FILTRATION RATE > 60 mL/min (>60); HEMOLYSIS 1; MAGNESIUM 1.8 mg/dL (1.7-2.5); PHOSPHORUS 1.4 mg/dL (2.5-4.8); POTASSIUM 3.6 mEQ/L (3.4-4.9); SODIUM 156 mEQ/L (135-145); TOTAL PROTEIN 6.9 g/dL (6.6-8.7)
[2017-05-28 05:36] LABS: MEAN CORPUSCULAR HEMOGLOBIN 26.8 PG (27.0-31.0); MEAN CORPUSCULAR HGB CONC 29.8 G/DL (32.0-36.0); MEAN CORPUSCULAR VOLUME 90 FL (80-99); MEAN PLATELET VOLUME 8.3 FL (6.5-10.1); PLATELET COUNT 384 K/UL (150-450); RED BLOOD COUNT 3.23 M/UL (4.70-6.10); RED CELL DISTRIBUTION WIDTH 17.7 % (11.6-14.8)
[2017-05-28 05:46] LABS: WHITE BLOOD COUNT 22.9 K/UL (4.8-10.8)
[2017-05-28 08:17] LABS: BAND NEUTROPHILS % (MANUAL) 2 % (0-8); LYMPHOCYTES % (MANUAL) 9 % (20-45); NEUTROPHILS % (MANUAL) 78 % (45-75); TOTAL CELLS COUNTED 100
[2017-05-28 08:19] LABS: ANISOCYTOSIS 1+; BASOPHILS % (MANUAL) 0 % (0-2); EOSINOPHILS % (MANUAL) 0 % (0-3); HYPOCHROMASIA 2+; PLATELET ESTIMATE ADEQUATE; PLATELET MORPHOLOGY NORMAL
[2017-05-28] MEDS: levETIRAcetam 500mg/5ml Liquid GT SCH ×2 (09:27→21:43)
[2017-05-28] MEDS: Spironolactone 25mg tab GT SCH (09:28)
[2017-05-28] MEDS: Ascorbic Acid 500mg tab GT SCH (09:29)
[2017-05-28] MEDS: Heparin 5000 units/ml inj SUBQ SCH ×2 (09:32→21:40)
--- NOTE | 2017-05-28 10:58 | Pulmonology Progress Note ---
Assessment/Plan Problems: (1) Acute on chronic respiratory failure (2) Anemia (3) Right pulmonary infiltrate on CXR (4) Chronic respiratory acidosis (5) Feeding by G-tube (6) EF of 30 Assessment/Plan on IV Tygacil and inhaled Colistin , continue Merrem Assessment/Plan: persistent fever with increasing wbc, lowry culture continue Tygacil, Colistin & Meropenem Respiratory: monitor respiratory rate Renal: F/U I&O Infectious Disease: check cultures, continue antibiotics Gastrointestinal: continue feedings/current rate Endocrine: monitor blood sugar, check TSH Hematologic: monitor H/H Neurologic: PRN Ativan, PRN Morphine Prophylaxis: Protonix, Heparin Notes Reviewed: cardio, renal Discussed with: consultants, director of casework department, family member Subjective ROS Limited/Unobtainable: No Constitutional: Reports: no symptoms HEENT: Repors: no symptoms Respiratory: Reports: no symptoms Cardiovascular: Reports: no symptoms Allergies: Coded Allergies: No Known Allergies (Unverified , 03/07/17) Objective Last 24 Hour Vital Signs Date Time Temp Pulse Resp B/P Pulse Ox O2 Delivery O2 Flow Rate FiO2 05/28/17 09:28 121 22 40 05/28/17 09:27 120 98/57 05/28/17 09:16 126 119/65 05/28/17 08:31 98.1 120 24 98/57 100 Mechanical Ventilator 40 05/28/17 08:00 40 05/28/17 08:00 122 05/28/17 07:03 120 26 40 05/28/17 05:10 122 27 40 05/28/17 04:00 126 05/28/17 04:00 40 05/28/17 04:00 98.1 126 24 116/66 100 Mechanical Ventilator 40 05/28/17 03:30 122 25 40 05/28/17 02:12 97.7 05/28/17 01:31 132 20 40 05/28/17 00:00 40 05/28/17 00:00 97.7 122 24 110/64 100 Mechanical Ventilator 40 05/27/17 23:29 134 05/27/17 23:00 136 22 40 05/27/17 21:40 132 16 100 Mechanical Ventilator 40 05/27/17 21:30 130 16 40 05/27/17 21:30 130 16 100 Mechanical Ventilator 40 05/27/17 20:46 128 117/65 05/27/17 20:00 40 05/27/17 20:00 97.5 125 26 117/65 100 Mechanical Ventilator 40 05/27/17 20:00 136 05/27/17 19:26 137 30 40 05/27/17 16:48 130 25 40 05/27/17 16:00 98.1 126 28 90/60 100 Mechanical Ventilator 40 05/27/17 16:00 40 05/27/17 16:00 129 05/27/17 15:16 126 22 40 05/27/17 13:00 125 97/62 05/27/17 12:57 127 29 40 05/27/17 12:00 124 05/27/17 12:00 40 05/27/17 12:00 98.4 125 26 86/66 100 Mechanical Ventilator 40 Intake and Output 05/27/17 05/28/17 19:00 07:00 Intake Total 2630 ml 2349 ml Output Total 900 ml 834 ml Balance 1730 ml 1515 ml Intake Free Water 400 ml 100 ml IV Total 1515 ml 1469 ml Tube Feeding 715 ml 780 ml Output Urine Total 900 ml 634 ml Stool Total 200 ml General Appearance: cachetic HEENT: normocephalic, atraumatic Respiratory/Chest: chest wall non-tender, lungs clear Cardiovascular: normal peripheral pulses, normal rate Abdomen: normal bowel sounds, soft, non tender Extremities: no cyanosis Skin: no rash, no ulcers 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: mechanical assembly 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 normal, abnormal gait Lymphatic: no neck adenopathy Musculoskeletal: normal muscle bulk Laboratory Tests 05/27/17 19:29: Arterial Blood pH 7.421, Arterial Blood Partial Pressure CO2 50.9H, Arterial Blood Partial Pressure O2 96.9, Arterial Blood HCO3 32.3H, Arterial Blood Oxygen Saturation 96.9, Arterial Blood Base Excess 6.9, Son Test Positive 05/28/17 03:30: White Blood Count 22.9*H, Red Blood Count 3.23L, Hemoglobin 8.7L, Hematocrit 29.1L, Mean Corpuscular Volume 90, Mean Corpuscular Hemoglobin 26.8L, Mean Corpuscular Hemoglobin Concent 29.8L, Red Cell Distribution Width 17.7H, Platelet Count 384, Mean Platelet Volume 8.3, Neutrophils (%) (Auto) , Lymphocytes (%) (Auto) , Monocytes (%) (Auto) , Eosinophils (%) (Auto) , Basophils (%) (Auto) , Differential Total Cells Counted 100, Neutrophils % ( Manual) 78H, Lymphocytes % (Manual) 9L, Monocytes % (Manual) 11H, Eosinophils % (Manual) 0, Basophils % (Manual) 0, Band Neutrophils 2, Platelet Estimate Adequate, Platelet Morphology Normal, Hypochromasia 2+, Anisocytosis 1+, Sodium Level 156H, Potassium Level 3.6, Chloride Level 116H, Carbon Dioxide Level 27, Anion Gap 13, Blood Urea Nitrogen 79H, Creatinine 0.8, Estimat Glomerular Filtration Rate > 60, Glucose Level 149H, Calcium Level 8.7, Phosphorus Level 1.4L, Magnesium Level 1.8, Total Bilirubin 0.3, Aspartate Amino Transf (AST/SGOT ) 20, Alanine Aminotransferase (ALT/SGPT) 21, Alkaline Phosphatase 182H, Total Protein 6.9, Albumin 1.8L, Globulin 5.1, Albumin/Globulin Ratio 0.3L Current Medications Medications (Trade) Dose Ordered Sig/Tameka Route PRN Reason Start Time Stop Time Status Last Admin Dose Admin Acetaminophen 650 mg 650 mg Q4H PRN ORAL Mild Pain/Temp > 100.5 05/27/17 09:00 06/26/17 08:59 05/28/17 01:13 Ascorbic Acid (Vitamin C) 500 mg DAILY GT 05/26/17 09:00 06/25/17 08:59 05/28/17 09:29 Carvedilol (Coreg) 3.125 mg Q12HR GT 05/25/17 21:00 06/24/17 20:59 05/28/17 09:27 Dextrose (D5W 1000ml) 1,000 ml @ 125 mls/hr Q8H IV 05/27/17 09:00 06/26/17 08:59 05/28/17 09:28 Dextrose (Dextrose 50%) STAT PRN IV Hypoglycemia 05/25/17 16:00 06/24/17 15:59 Heparin Sodium (Porcine) (Heparin 5000 units/ml) 5,000 units EVERY 12 HOURS SUBQ 05/25/17 21:00 06/24/17 20:59 05/28/17 09:32 Levetiracetam (Keppra) 500 mg Q12HR GT 05/25/17 21:00 06/24/17 20:59 05/28/17 09:27 Ondansetron HCl (Zofran) 4 mg Q6H PRN IVP Nausea & Vomiting 05/25/17 16:15 06/24/17 16:14 Polyethylene Glycol (Miralax) 17 gm DAILYPRN PRN GT Constipation 05/25/17 16:00 06/24/17 15:59 Sodium Hypochlorite (Dakin's Half Strength) 1 applic DAILY TOPIC 05/26/17 09:00 06/25/17 08:59 05/27/17 08:19 Spironolactone (Aldactone) 25 mg DAILY GT 05/26/17 09:00 06/25/17 08:59 05/28/17 09:28 ODETTE SMILEY May 28, 2017 10:58
--- NOTE | 2017-05-28 12:20 | GI Progress Note ---
Assessment/Plan Problems: (1) Anemia ICD Codes: D64.9 - Anemia, unspecified SNOMED: 286864011 Qualifiers: Qualified Codes: D64.9 - Anemia, unspecified (2) EF of 30 (3) Feeding by G-tube ICD Codes: Z93.1 - Gastrostomy status SNOMED: 603008868, 181489333 (4) Transaminitis ICD Codes: R74.0 - Nonspecific elevation of levels of transaminase and lactic acid dehydrogenase [LDH] SNOMED: 547480828 (5) Leukocytosis ICD Codes: D72.829 - Elevated white blood cell count, unspecified SNOMED: 055001051, 082748832 Status: not improved, unchanged Status Narrative Discussed with Dr. Alex. Assessment/Plan occult blood stool >> negative x 2 stable H&H, transfuse prn GT replaced. GTFs per dietary, monitor residuals PPI for GI prophylaxis abx fu labs Subjective Subjective limited Objective Last 24 Hour Vital Signs Date Time Temp Pulse Resp B/P Pulse Ox O2 Delivery O2 Flow Rate FiO2 05/28/17 11:18 107 21 40 05/28/17 09:28 121 22 40 05/28/17 09:27 120 98/57 05/28/17 09:16 126 119/65 05/28/17 08:31 98.1 120 24 98/57 100 Mechanical Ventilator 40 05/28/17 08:00 40 05/28/17 08:00 122 05/28/17 07:03 120 26 40 05/28/17 05:10 122 27 40 05/28/17 04:00 126 05/28/17 04:00 40 05/28/17 04:00 98.1 126 24 116/66 100 Mechanical Ventilator 40 05/28/17 03:30 122 25 40 05/28/17 02:12 97.7 05/28/17 01:31 132 20 40 05/28/17 00:00 40 05/28/17 00:00 97.7 122 24 110/64 100 Mechanical Ventilator 40 05/27/17 23:29 134 05/27/17 23:00 136 22 40 05/27/17 21:40 132 16 100 Mechanical Ventilator 40 05/27/17 21:30 130 16 40 05/27/17 21:30 130 16 100 Mechanical Ventilator 40 05/27/17 20:46 128 117/65 05/27/17 20:00 40 05/27/17 20:00 97.5 125 26 117/65 100 Mechanical Ventilator 40 05/27/17 20:00 136 05/27/17 19:26 137 30 40 05/27/17 16:48 130 25 40 05/27/17 16:00 98.1 126 28 90/60 100 Mechanical Ventilator 40 05/27/17 16:00 40 05/27/17 16:00 129 05/27/17 15:16 126 22 40 05/27/17 13:00 125 97/62 05/27/17 12:57 127 29 40 Intake and Output 05/27/17 05/28/17 19:00 07:00 Intake Total 2630 ml 2349 ml Output Total 900 ml 834 ml Balance 1730 ml 1515 ml Intake Free Water 400 ml 100 ml IV Total 1515 ml 1469 ml Tube Feeding 715 ml 780 ml Output Urine Total 900 ml 634 ml Stool Total 200 ml Laboratory Tests Test 05/27/17 19:29 05/28/17 03:30 Arterial Blood pH 7.421 (7.350-7.450) Arterial Blood Partial Pressure CO2 50.9 mmHg (35.0-45.0) H Arterial Blood Partial Pressure O2 96.9 mmHg (75.0-100.0) Arterial Blood HCO3 32.3 mmol/L (22.0-26.0) H Arterial Blood Oxygen Saturation 96.9 % (92.0-98.0) Arterial Blood Base Excess 6.9 Son Test Positive White Blood Count 22.9 K/UL (4.8-10.8) *H Red Blood Count 3.23 M/UL (4.70-6.10) L Hemoglobin 8.7 G/DL (14.2-18.0) L Hematocrit 29.1 % (42.0-52.0) L Mean Corpuscular Volume 90 FL (80-99) Mean Corpuscular Hemoglobin 26.8 PG (27.0-31.0) L Mean Corpuscular Hemoglobin Concent 29.8 G/DL (32.0-36.0) L Red Cell Distribution Width 17.7 % (11.6-14.8) H Platelet Count 384 K/UL (150-450) Mean Platelet Volume 8.3 FL (6.5-10.1) Neutrophils (%) (Auto) % (45.0-75.0) Lymphocytes (%) (Auto) % (20.0-45.0) Monocytes (%) (Auto) % (1.0-10.0) Eosinophils (%) (Auto) % (0.0-3.0) Basophils (%) (Auto) % (0.0-2.0) Differential Total Cells Counted 100 Neutrophils % (Manual) 78 % (45-75) H Lymphocytes % (Manual) 9 % (20-45) L Monocytes % (Manual) 11 % (1-10) H Eosinophils % (Manual) 0 % (0-3) Basophils % (Manual) 0 % (0-2) Band Neutrophils 2 % (0-8) Platelet Estimate Adequate Platelet Morphology Normal Hypochromasia 2+ Anisocytosis 1+ Sodium Level 156 mEQ/L (135-145) H Potassium Level 3.6 mEQ/L (3.4-4.9) Chloride Level 116 mEQ/L (98-107) H Carbon Dioxide Level 27 mEQ/L (20-30) Anion Gap 13 (5-15) Blood Urea Nitrogen 79 mg/dL (7-23) H Creatinine 0.8 mg/dL (0.7-1.2) Estimat Glomerular Filtration Rate > 60 mL/min (>60) Glucose Level 149 mg/dL (74-106) H Calcium Level 8.7 mg/dL (8.6-10.2) Phosphorus Level 1.4 mg/dL (2.5-4.8) L Magnesium Level 1.8 mg/dL (1.7-2.5) Total Bilirubin 0.3 mg/dL (0.0-1.2) Aspartate Amino Transf (AST/SGOT) 20 U/L (5-40) Alanine Aminotransferase (ALT/SGPT) 21 U/L (3-41) Alkaline Phosphatase 182 U/L (40-129) H Total Protein 6.9 g/dL (6.6-8.7) Albumin 1.8 g/dL (3.5-5.2) L Globulin 5.1 g/dL Albumin/Globulin Ratio 0.3 (1.0-2.7) L Height (Feet): 5 Height (Inches): 7.00 Weight (Pounds): 126 General Appearance: no apparent distress, alert, thin Cardiovascular: normal rate [facility]: GT site - c/d/i Lani Last N.P. May 28, 2017 12:20
[2017-05-28] MEDS: Dakin's 0.25% (Half Strength) 16oz TOPIC SCH (12:57)
--- NOTE | 2017-05-28 21:04 | Cardiology Progress Note ---
Assessment/Plan Assessment/Plan paf cardiomyopathy chf chronic respirator failure chronic diarreha hypernatremia amiod daily tele reviwed sinus / sinus tachy abx off diuretic on free water iv na improved breathing patttern seem improved comapred to last ntie abd noed is on bb acei in future' bp low hodl parmamteer for meds Subjective ROS Limited/Unobtainable: Yes Subjective vent Objective Last 24 Hour Vital Signs Date Time Temp Pulse Resp B/P Pulse Ox O2 Delivery O2 Flow Rate FiO2 05/28/17 20:00 40 05/28/17 20:00 98.4 127 24 97/57 100 Mechanical Ventilator 40 05/28/17 18:51 124 23 40 05/28/17 17:15 125 26 40 05/28/17 16:30 98.2 124 22 103/53 100 Mechanical Ventilator 40 05/28/17 16:00 40 05/28/17 16:00 116 05/28/17 15:28 113 21 40 05/28/17 13:22 103 33 40 05/28/17 12:30 98.1 110 26 126/62 100 Mechanical Ventilator 40 05/28/17 12:00 115 05/28/17 12:00 40 05/28/17 11:18 107 21 40 05/28/17 09:28 121 22 40 05/28/17 09:27 120 98/57 05/28/17 09:16 126 119/65 05/28/17 08:31 98.1 120 24 98/57 100 Mechanical Ventilator 40 05/28/17 08:00 40 05/28/17 08:00 122 05/28/17 07:03 120 26 40 05/28/17 05:10 122 27 40 05/28/17 04:00 126 05/28/17 04:00 40 05/28/17 04:00 98.1 126 24 116/66 100 Mechanical Ventilator 40 05/28/17 03:30 122 25 40 05/28/17 02:12 97.7 05/28/17 01:31 132 20 40 05/28/17 00:00 40 05/28/17 00:00 97.7 122 24 110/64 100 Mechanical Ventilator 40 05/27/17 23:29 134 05/27/17 23:00 136 22 40 05/27/17 21:40 132 16 100 Mechanical Ventilator 40 05/27/17 21:30 130 16 40 05/27/17 21:30 130 16 100 Mechanical Ventilator 40 General Appearance: on vent, patient on isolation, other - looks comfortable Intake and Output 05/27/17 05/28/17 19:00 07:00 Intake Total 2630 ml 2349 ml Output Total 900 ml 834 ml Balance 1730 ml 1515 ml Intake Free Water 400 ml 100 ml IV Total 1515 ml 1469 ml Tube Feeding 715 ml 780 ml Output Urine Total 900 ml 634 ml Stool Total 200 ml Laboratory Tests Test 05/28/17 03:30 White Blood Count 22.9 K/UL (4.8-10.8) *H Red Blood Count 3.23 M/UL (4.70-6.10) L Hemoglobin 8.7 G/DL (14.2-18.0) L Hematocrit 29.1 % (42.0-52.0) L Mean Corpuscular Volume 90 FL (80-99) Mean Corpuscular Hemoglobin 26.8 PG (27.0-31.0) L Mean Corpuscular Hemoglobin Concent 29.8 G/DL (32.0-36.0) L Red Cell Distribution Width 17.7 % (11.6-14.8) H Platelet Count 384 K/UL (150-450) Mean Platelet Volume 8.3 FL (6.5-10.1) Neutrophils (%) (Auto) % (45.0-75.0) Lymphocytes (%) (Auto) % (20.0-45.0) Monocytes (%) (Auto) % (1.0-10.0) Eosinophils (%) (Auto) % (0.0-3.0) Basophils (%) (Auto) % (0.0-2.0) Differential Total Cells Counted 100 Neutrophils % (Manual) 78 % (45-75) H Lymphocytes % (Manual) 9 % (20-45) L Monocytes % (Manual) 11 % (1-10) H Eosinophils % (Manual) 0 % (0-3) Basophils % (Manual) 0 % (0-2) Band Neutrophils 2 % (0-8) Platelet Estimate Adequate Platelet Morphology Normal Hypochromasia 2+ Anisocytosis 1+ Sodium Level 156 mEQ/L (135-145) H Potassium Level 3.6 mEQ/L (3.4-4.9) Chloride Level 116 mEQ/L (98-107) H Carbon Dioxide Level 27 mEQ/L (20-30) Anion Gap 13 (5-15) Blood Urea Nitrogen 79 mg/dL (7-23) H Creatinine 0.8 mg/dL (0.7-1.2) Estimat Glomerular Filtration Rate > 60 mL/min (>60) Glucose Level 149 mg/dL (74-106) H Calcium Level 8.7 mg/dL (8.6-10.2) Phosphorus Level 1.4 mg/dL (2.5-4.8) L Magnesium Level 1.8 mg/dL (1.7-2.5) Total Bilirubin 0.3 mg/dL (0.0-1.2) Aspartate Amino Transf (AST/SGOT) 20 U/L (5-40) Alanine Aminotransferase (ALT/SGPT) 21 U/L (3-41) Alkaline Phosphatase 182 U/L (40-129) H Total Protein 6.9 g/dL (6.6-8.7) Albumin 1.8 g/dL (3.5-5.2) L Globulin 5.1 g/dL Albumin/Globulin Ratio 0.3 (1.0-2.7) L CELI FALCON May 28, 2017 21:04
[2017-05-28] MEDS ORDERED: Sodium Phosphate 20 MM in NS 275 ML IVPB ONE (22:00)
--- NOTE | 2017-05-28 22:14 | Infectious Diseases Prog Note ---
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 - SCx : MDR - ACB , KPC , SP Rx - CXR: Worsening atelectasis versus pneumonia right lung base - h/o Provid a+ XDR PSA and Providencia // Stage IV sacral decubitus, not grossly infected - surveillance WCx KPC and ACB, strep, CONS ( colonizer ) - h/o polymicrobial MDR colonization // HCV Ab+ - Abdominal ultrasound of liver : unremarkable // Probable sepsis, SP // Leukocytosis: persistent CT of C/A/P : No evidence of abscess , Pulmonary bibasal parenchymal consolidation // Low grade fever, SP Severe anemia SP PRBCs Sinus tachycardia Chronic VDRF SP trach, PEG h/o cardiac arrest, anoxic encephalopathy Cardiomyopathy SP defibrillator placement Paroxysmal atrial fibrillation Cachexia / severe protein-calorie malnutrition [place] resident DEVONTE Full Code PLAN: monitor pt off of AB rx ( 05/27 SP Tygacil and Colistin d# 14 / , add Merrem d# ) ( 05/15 SP IV vancomycin, Zosyn d# 5 ) ( SP Merrem and Colistin INH d# / ) ( 03/13 SP vancomycin and Zosyn d# 5 ) Monitor CBC, temperatures Monitor CMP Monitor CXR vent support, trach care, aspiration precautions wound care transfuse prn Subjective Allergies: Coded Allergies: No Known Allergies (Unverified , 03/07/17) Subjective afebrile Objective Vital Signs Last 24 Hour Vital Signs Date Time Temp Pulse Resp B/P Pulse Ox O2 Delivery O2 Flow Rate FiO2 05/28/17 21:20 121 23 40 05/28/17 20:00 125 05/28/17 20:00 40 05/28/17 20:00 98.4 127 24 97/57 100 Mechanical Ventilator 40 05/28/17 18:51 124 23 40 05/28/17 17:15 125 26 40 05/28/17 16:30 98.2 124 22 103/53 100 Mechanical Ventilator 40 05/28/17 16:00 40 05/28/17 16:00 116 05/28/17 15:28 113 21 40 05/28/17 13:22 103 33 40 05/28/17 12:30 98.1 110 26 126/62 100 Mechanical Ventilator 40 05/28/17 12:00 115 05/28/17 12:00 40 05/28/17 11:18 107 21 40 05/28/17 09:28 121 22 40 05/28/17 09:27 120 98/57 05/28/17 09:16 126 119/65 05/28/17 08:31 98.1 120 24 98/57 100 Mechanical Ventilator 40 05/28/17 08:00 40 05/28/17 08:00 122 05/28/17 07:03 120 26 40 05/28/17 05:10 122 27 40 05/28/17 04:00 126 05/28/17 04:00 40 05/28/17 04:00 98.1 126 24 116/66 100 Mechanical Ventilator 40 05/28/17 03:30 122 25 40 05/28/17 02:12 97.7 05/28/17 01:31 132 20 40 05/28/17 00:00 40 05/28/17 00:00 97.7 122 24 110/64 100 Mechanical Ventilator 40 05/27/17 23:29 134 05/27/17 23:00 136 22 40 Height (Feet): 5 Height (Inches): 7.00 Weight (Pounds): 126 HEENT: anicteric Respiratory/Chest: no respiratory distress Cardiovascular: no gallop/murmur Abdomen: no mass Laboratory Tests Test 05/28/17 03:30 White Blood Count 22.9 K/UL (4.8-10.8) *H Red Blood Count 3.23 M/UL (4.70-6.10) L Hemoglobin 8.7 G/DL (14.2-18.0) L Hematocrit 29.1 % (42.0-52.0) L Mean Corpuscular Volume 90 FL (80-99) Mean Corpuscular Hemoglobin 26.8 PG (27.0-31.0) L Mean Corpuscular Hemoglobin Concent 29.8 G/DL (32.0-36.0) L Red Cell Distribution Width 17.7 % (11.6-14.8) H Platelet Count 384 K/UL (150-450) Mean Platelet Volume 8.3 FL (6.5-10.1) Neutrophils (%) (Auto) % (45.0-75.0) Lymphocytes (%) (Auto) % (20.0-45.0) Monocytes (%) (Auto) % (1.0-10.0) Eosinophils (%) (Auto) % (0.0-3.0) Basophils (%) (Auto) % (0.0-2.0) Differential Total Cells Counted 100 Neutrophils % (Manual) 78 % (45-75) H Lymphocytes % (Manual) 9 % (20-45) L Monocytes % (Manual) 11 % (1-10) H Eosinophils % (Manual) 0 % (0-3) Basophils % (Manual) 0 % (0-2) Band Neutrophils 2 % (0-8) Platelet Estimate Adequate Platelet Morphology Normal Hypochromasia 2+ Anisocytosis 1+ Sodium Level 156 mEQ/L (135-145) H Potassium Level 3.6 mEQ/L (3.4-4.9) Chloride Level 116 mEQ/L (98-107) H Carbon Dioxide Level 27 mEQ/L (20-30) Anion Gap 13 (5-15) Blood Urea Nitrogen 79 mg/dL (7-23) H Creatinine 0.8 mg/dL (0.7-1.2) Estimat Glomerular Filtration Rate > 60 mL/min (>60) Glucose Level 149 mg/dL (74-106) H Calcium Level 8.7 mg/dL (8.6-10.2) Phosphorus Level 1.4 mg/dL (2.5-4.8) L Magnesium Level 1.8 mg/dL (1.7-2.5) Total Bilirubin 0.3 mg/dL (0.0-1.2) Aspartate Amino Transf (AST/SGOT) 20 U/L (5-40) Alanine Aminotransferase (ALT/SGPT) 21 U/L (3-41) Alkaline Phosphatase 182 U/L (40-129) H Total Protein 6.9 g/dL (6.6-8.7) Albumin 1.8 g/dL (3.5-5.2) L Globulin 5.1 g/dL Albumin/Globulin Ratio 0.3 (1.0-2.7) L Current Medications Medications (Trade) Dose Ordered Sig/Tameka Route PRN Reason Start Time Stop Time Status Last Admin Dose Admin Acetaminophen 650 mg 650 mg Q4H PRN ORAL Mild Pain/Temp > 100.5 05/27/17 09:00 06/26/17 08:59 05/28/17 01:13 Ascorbic Acid (Vitamin C) 500 mg DAILY GT 05/26/17 09:00 06/25/17 08:59 05/28/17 09:29 Carvedilol (Coreg) 3.125 mg Q12HR GT 05/29/17 09:00 06/24/17 20:59 Dextrose 1,000 ml @ 125 mls/hr Q8H IV 05/27/17 09:00 06/26/17 08:59 05/28/17 17:04 Dextrose (Dextrose 50%) STAT PRN IV Hypoglycemia 05/25/17 16:00 06/24/17 15:59 Heparin Sodium (Porcine) (Heparin 5000 units/ml) 5,000 units EVERY 12 HOURS SUBQ 05/25/17 21:00 06/24/17 20:59 05/28/17 21:40 Levetiracetam (Keppra) 500 mg Q12HR GT 05/25/17 21:00 06/24/17 20:59 05/28/17 21:43 Magnesium Sulfate 100 ml @ 100 mls/hr Q1H IVPB 05/28/17 21:00 05/28/17 22:59 05/28/17 21:42 Ondansetron HCl (Zofran) 4 mg Q6H PRN IVP Nausea & Vomiting 05/25/17 16:15 06/24/17 16:14 Polyethylene Glycol (Miralax) 17 gm DAILYPRN PRN GT Constipation 05/25/17 16:00 06/24/17 15:59 Sodium Hypochlorite (Dakin's Half Strength) 1 applic DAILY TOPIC 05/26/17 09:00 06/25/17 08:59 05/28/17 12:57 Sodium Phosphate/ Sodium Chloride (NaPO4/Sodium Chloride) 281.6667 ml @ 93.889 m... ONCE ONCE IVPB 05/28/17 22:00 05/29/17 00:59 Spironolactone (Aldactone) 25 mg DAILY GT 05/26/17 09:00 06/25/17 08:59 05/28/17 09:28 MARCUS PA M.D. May 28, 2017 22:13
[2017-05-29 04:00] VITALS: BP 113/66
[2017-05-29 04:24] LABS: MEAN CORPUSCULAR HEMOGLOBIN 27.7 PG (27.0-31.0); MEAN CORPUSCULAR HGB CONC 31.2 G/DL (32.0-36.0); MEAN CORPUSCULAR VOLUME 89 FL (80-99); MEAN PLATELET VOLUME 9.2 FL (6.5-10.1); PLATELET COUNT 297 K/UL (150-450); RED BLOOD COUNT 2.81 M/UL (4.70-6.10); WHITE BLOOD COUNT 17.1 K/UL (4.8-10.8)
[2017-05-29 04:41] LABS: ALANINE AMINOTRANSFERASE 17 U/L (3-41); ANION GAP 13 (5-15); ASPARTATE AMINO TRANSFERASE 20 U/L (5-40); CALCIUM 8.1 mg/dL (8.6-10.2); CARBON DIOXIDE 25 mEQ/L (20-30); CHLORIDE 108 mEQ/L (98-107); CREATININE 0.5 mg/dL (0.7-1.2); GLOMERULAR FILTRATION RATE > 60 mL/min (>60); HEMOLYSIS 4; PHOSPHORUS 3.5 mg/dL (2.5-4.8); POTASSIUM 3.1 mEQ/L (3.4-4.9); SODIUM 146 mEQ/L (135-145); TOTAL PROTEIN 6.5 g/dL (6.6-8.7)
[2017-05-29 07:16] LABS: ANISOCYTOSIS 1+; BAND NEUTROPHILS % (MANUAL) 0 % (0-8); BASOPHILS % (MANUAL) 0 % (0-2); EOSINOPHILS % (MANUAL) 3 % (0-3); HYPOCHROMASIA 1+; LYMPHOCYTES % (MANUAL) 11 % (20-45); NEUTROPHILS % (MANUAL) 84 % (45-75); PLATELET ESTIMATE ADEQUATE; PLATELET MORPHOLOGY NORMAL; TOTAL CELLS COUNTED 100
[2017-05-29 08:00] VITALS: BP 108/69
[2017-05-29] MEDS: Spironolactone 25mg tab GT SCH (08:40)
[2017-05-29] MEDS: levETIRAcetam 500mg/5ml Liquid GT SCH ×2 (08:40→20:52)
[2017-05-29] MEDS: Heparin 5000 units/ml inj SUBQ SCH ×2 (08:40→20:57)
[2017-05-29] MEDS: Ascorbic Acid 500mg tab GT SCH (08:40)
[2017-05-29] MEDS: Dakin's 0.25% (Half Strength) 16oz TOPIC SCH (08:51)
[2017-05-29] MEDS ORDERED: KCl 10% 40mEq/30ml liquid GT ONE (09:00)
--- NOTE | 2017-05-29 10:10 | Pulmonology Progress Note ---
Assessment/Plan Problems: (1) Acute on chronic respiratory failure (2) Anemia (3) Right pulmonary infiltrate on CXR (4) Chronic respiratory acidosis (5) Feeding by G-tube (6) EF of 30 Assessment/Plan on IV Tygacil and inhaled Colistin , continue Merrem wbc decreasing, no fevers pt need blood transfusion, there are no family members to sign the consent. 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, renal Discussed with: nurses, consultants, family service caseworker Subjective ROS Limited/Unobtainable: No Constitutional: Reports: no symptoms HEENT: Repors: no symptoms Allergies: Coded Allergies: No Known Allergies (Unverified , 03/07/17) Objective Last 24 Hour Vital Signs Date Time Temp Pulse Resp B/P Pulse Ox O2 Delivery O2 Flow Rate FiO2 05/29/17 08:42 110 20 40 05/29/17 08:40 107 108/69 05/29/17 08:00 98.1 107 20 108/69 100 Mechanical Ventilator 40 05/29/17 08:00 40 05/29/17 07:37 102 05/29/17 06:57 107 19 40 05/29/17 04:38 103 20 40 05/29/17 04:00 98.2 106 20 113/66 100 Mechanical Ventilator 40 05/29/17 04:00 103 05/29/17 04:00 40 05/29/17 03:27 121 20 40 05/29/17 03:12 98.4 05/29/17 00:46 120 18 40 05/29/17 00:00 40 05/29/17 00:00 126 05/28/17 23:31 98.4 126 20 101/80 100 Mechanical Ventilator 40 05/28/17 23:03 125 22 40 05/28/17 21:20 121 23 40 05/28/17 20:00 125 05/28/17 20:00 40 05/28/17 20:00 98.4 127 24 97/57 100 Mechanical Ventilator 40 05/28/17 18:51 124 23 40 05/28/17 17:15 125 26 40 05/28/17 16:30 98.2 124 22 103/53 100 Mechanical Ventilator 40 05/28/17 16:00 40 05/28/17 16:00 116 05/28/17 15:28 113 21 40 05/28/17 13:22 103 33 40 05/28/17 12:30 98.1 110 26 126/62 100 Mechanical Ventilator 40 05/28/17 12:00 115 05/28/17 12:00 40 05/28/17 11:18 107 21 40 Intake and Output 05/28/17 05/29/17 19:00 07:00 Intake Total 2405 ml 2846.667 ml Output Total 1200 ml 1400 ml Balance 1205 ml 1446.667 ml Intake Free Water 250 ml 150 ml IV Total 1375 ml 1981.667 ml Tube Feeding 780 ml 715 ml Output Urine Total 800 ml 600 ml Stool Total 400 ml 800 ml General Appearance: cachetic HEENT: normocephalic, atraumatic Respiratory/Chest: chest wall non-tender, lungs clear Cardiovascular: normal peripheral pulses, normal rate Abdomen: normal bowel sounds, soft, non tender Genitourinary: normal external genitalia Extremities: no cyanosis Skin: no rash 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 normal Laboratory Tests 05/29/17 03:40: White Blood Count 17.1H, Red Blood Count 2.81L, Hemoglobin 7.8L, Hematocrit 24.9L, Mean Corpuscular Volume 89, Mean Corpuscular Hemoglobin 27.7, Mean Corpuscular Hemoglobin Concent 31.2L, Red Cell Distribution Width 18.0H, Platelet Count 297, Mean Platelet Volume 9.2, Neutrophils (%) (Auto) , Lymphocytes (%) (Auto) , Monocytes (%) (Auto) , Eosinophils (%) (Auto) , Basophils (%) (Auto) , Differential Total Cells Counted 100, Neutrophils % ( Manual) 84H, Lymphocytes % (Manual) 11L, Monocytes % (Manual) 2, Eosinophils % ( Manual) 3, Basophils % (Manual) 0, Band Neutrophils 0, Platelet Estimate Adequate, Platelet Morphology Normal, Hypochromasia 1+, Anisocytosis 1+, Sodium Level 146H, Potassium Level 3.1L, Chloride Level 108H, Carbon Dioxide Level 25, Anion Gap 13, Blood Urea Nitrogen 54#H, Creatinine 0.5L, Estimat Glomerular Filtration Rate > 60, Glucose Level 114H, Calcium Level 8.1L, Phosphorus Level 3.5, Magnesium Level 2.0, Total Bilirubin 0.3, Aspartate Amino Transf (AST/SGOT ) 20, Alanine Aminotransferase (ALT/SGPT) 17, Alkaline Phosphatase 157H, Total Protein 6.5L, Albumin < 0.4L, Globulin 6.1, Albumin/Globulin Ratio 0.0L Current Medications Medications (Trade) Dose Ordered Sig/Tameka Route PRN Reason Start Time Stop Time Status Last Admin Dose Admin Acetaminophen 650 mg 650 mg Q4H PRN ORAL Mild Pain/Temp > 100.5 05/27/17 09:00 06/26/17 08:59 05/29/17 02:13 Ascorbic Acid (Vitamin C) 500 mg DAILY GT 05/26/17 09:00 06/25/17 08:59 05/29/17 08:40 Carvedilol (Coreg) 3.125 mg Q12HR GT 05/29/17 09:00 06/24/17 20:59 05/29/17 08:40 Dextrose (D5W 1000ml) 1,000 ml @ 125 mls/hr Q8H IV 05/27/17 09:00 06/26/17 08:59 05/29/17 08:56 Dextrose (Dextrose 50%) STAT PRN IV Hypoglycemia 05/25/17 16:00 06/24/17 15:59 Heparin Sodium (Porcine) (Heparin 5000 units/ml) 5,000 units EVERY 12 HOURS SUBQ 05/25/17 21:00 06/24/17 20:59 05/29/17 08:40 Levetiracetam (Keppra) 500 mg Q12HR GT 05/25/17 21:00 06/24/17 20:59 05/29/17 08:40 Ondansetron HCl (Zofran) 4 mg Q6H PRN IVP Nausea & Vomiting 05/25/17 16:15 06/24/17 16:14 Polyethylene Glycol (Miralax) 17 gm DAILYPRN PRN GT Constipation 05/25/17 16:00 06/24/17 15:59 Sodium Hypochlorite (Dakin's Half Strength) 1 applic DAILY TOPIC 05/26/17 09:00 06/25/17 08:59 05/29/17 08:51 Spironolactone (Aldactone) 25 mg DAILY GT 05/26/17 09:00 06/25/17 08:59 05/29/17 08:40 ODETTE SMILEY May 29, 2017 10:10
--- NOTE | 2017-05-29 11:09 | GI Progress Note ---
Assessment/Plan Problems: (1) Anemia ICD Codes: D64.9 - Anemia, unspecified SNOMED: 266583347 Qualifiers: Qualified Codes: D64.9 - Anemia, unspecified (2) EF of 30 (3) Feeding by G-tube ICD Codes: Z93.1 - Gastrostomy status SNOMED: 649204207, 222247544 (4) Transaminitis ICD Codes: R74.0 - Nonspecific elevation of levels of transaminase and lactic acid dehydrogenase [LDH] SNOMED: 675846936 (5) Leukocytosis ICD Codes: D72.829 - Elevated white blood cell count, unspecified SNOMED: 748040881, 609352604 Status: unchanged Status Narrative Discussed with Dr. Alex. Assessment/Plan occult blood stool >> negative x 2 cdiff negative stable H&H, transfuse prn GT replaced. GTFs per dietary, monitor residuals PPI for GI prophylaxis abx Imodium prn fu labs Subjective Subjective limited Objective Last 24 Hour Vital Signs Date Time Temp Pulse Resp B/P Pulse Ox O2 Delivery O2 Flow Rate FiO2 05/29/17 08:42 110 20 40 05/29/17 08:40 107 108/69 05/29/17 08:00 98.1 107 20 108/69 100 Mechanical Ventilator 40 05/29/17 08:00 40 05/29/17 07:37 102 05/29/17 06:57 107 19 40 05/29/17 04:38 103 20 40 05/29/17 04:00 98.2 106 20 113/66 100 Mechanical Ventilator 40 05/29/17 04:00 103 05/29/17 04:00 40 05/29/17 03:27 121 20 40 05/29/17 03:12 98.4 05/29/17 00:46 120 18 40 05/29/17 00:00 40 05/29/17 00:00 126 05/28/17 23:31 98.4 126 20 101/80 100 Mechanical Ventilator 40 05/28/17 23:03 125 22 40 05/28/17 21:20 121 23 40 05/28/17 20:00 125 05/28/17 20:00 40 05/28/17 20:00 98.4 127 24 97/57 100 Mechanical Ventilator 40 05/28/17 18:51 124 23 40 7/12/17 17:15 125 26 40 05/28/17 16:30 98.2 124 22 103/53 100 Mechanical Ventilator 40 05/28/17 16:00 40 05/28/17 16:00 116 05/28/17 15:28 113 21 40 05/28/17 13:22 103 33 40 05/28/17 12:30 98.1 110 26 126/62 100 Mechanical Ventilator 40 05/28/17 12:00 115 05/28/17 12:00 40 05/28/17 11:18 107 21 40 Intake and Output 05/28/17 05/29/17 19:00 07:00 Intake Total 2405 ml 2846.667 ml Output Total 1200 ml 1400 ml Balance 1205 ml 1446.667 ml Intake Free Water 250 ml 150 ml IV Total 1375 ml 1981.667 ml Tube Feeding 780 ml 715 ml Output Urine Total 800 ml 600 ml Stool Total 400 ml 800 ml Laboratory Tests Test 05/29/17 03:40 White Blood Count 17.1 K/UL (4.8-10.8) H Red Blood Count 2.81 M/UL (4.70-6.10) L Hemoglobin 7.8 G/DL (14.2-18.0) L Hematocrit 24.9 % (42.0-52.0) L Mean Corpuscular Volume 89 FL (80-99) Mean Corpuscular Hemoglobin 27.7 PG (27.0-31.0) Mean Corpuscular Hemoglobin Concent 31.2 G/DL (32.0-36.0) L Red Cell Distribution Width 18.0 % (11.6-14.8) H Platelet Count 297 K/UL (150-450) Mean Platelet Volume 9.2 FL (6.5-10.1) Neutrophils (%) (Auto) % (45.0-75.0) Lymphocytes (%) (Auto) % (20.0-45.0) Monocytes (%) (Auto) % (1.0-10.0) Eosinophils (%) (Auto) % (0.0-3.0) Basophils (%) (Auto) % (0.0-2.0) Differential Total Cells Counted 100 Neutrophils % (Manual) 84 % (45-75) H Lymphocytes % (Manual) 11 % (20-45) L Monocytes % (Manual) 2 % (1-10) Eosinophils % (Manual) 3 % (0-3) Basophils % (Manual) 0 % (0-2) Band Neutrophils 0 % (0-8) Platelet Estimate Adequate Platelet Morphology Normal Hypochromasia 1+ Anisocytosis 1+ Sodium Level 146 mEQ/L (135-145) H Potassium Level 3.1 mEQ/L (3.4-4.9) L Chloride Level 108 mEQ/L (98-107) H Carbon Dioxide Level 25 mEQ/L (20-30) Anion Gap 13 (5-15) Blood Urea Nitrogen 54 mg/dL (7-23) #H Creatinine 0.5 mg/dL (0.7-1.2) L Estimat Glomerular Filtration Rate > 60 mL/min (>60) Glucose Level 114 mg/dL (74-106) H Calcium Level 8.1 mg/dL (8.6-10.2) L Phosphorus Level 3.5 mg/dL (2.5-4.8) Magnesium Level 2.0 mg/dL (1.7-2.5) Total Bilirubin 0.3 mg/dL (0.0-1.2) Aspartate Amino Transf (AST/SGOT) 20 U/L (5-40) Alanine Aminotransferase (ALT/SGPT) 17 U/L (3-41) Alkaline Phosphatase 157 U/L (40-129) H Total Protein 6.5 g/dL (6.6-8.7) L Albumin < 0.4 g/dL (3.5-5.2) L Globulin 6.1 g/dL Albumin/Globulin Ratio 0.0 (1.0-2.7) L Height (Feet): 5 Height (Inches): 7.00 Weight (Pounds): 126 General Appearance: alert, thin Cardiovascular: normal rate [facility] Ab[facility] Exam: GT site - c/d/i Lani Last N.P. May 29, 2017 11:09
[2017-05-29 12:00] VITALS: BP 104/55
--- NOTE | 2017-05-29 13:02 | General Progress Note ---
Progress Note Progress Note Bioethics Committee Asked to assess whether a DNR order is appropriate for this unrepresented patient with multiple medical problems including anoxic brain damage, respiratory failure, trach/ventilator dependent, with sepsis, multiple decubiti , new transfusion dependent anemia. Efforts have been made to locate sisters without success and the alf where he resides have never seen visitors. A no code order would be appropriate and ongoing aggressive care will prove futile. Comfort care would be appropriate. Discussed with Litzy Larry and Dr. Moses and primary nurse Mishel. KORTNEY Gustafson MD May 29, 2017 13:02
[2017-05-29 16:00] VITALS: BP 94/52
--- NOTE | 2017-05-29 18:03 | Infectious Diseases Prog Note ---
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 - SCx : MDR - ACB , KPC , SP Rx - CXR: Worsening atelectasis versus pneumonia right lung base - h/o Provid a+ XDR PSA and Providencia // Stage IV sacral decubitus, not grossly infected - surveillance WCx KPC and ACB, strep, CONS ( colonizer ) - h/o polymicrobial MDR colonization // HCV Ab+ - Abdominal ultrasound of liver : unremarkable // Probable sepsis, SP // Leukocytosis: persistent CT of C/A/P : No evidence of abscess , Pulmonary bibasal parenchymal consolidation // Low grade fever, SP Severe anemia SP PRBCs Sinus tachycardia Chronic VDRF SP trach, PEG h/o cardiac arrest, anoxic encephalopathy Cardiomyopathy SP defibrillator placement Paroxysmal atrial fibrillation Cachexia / severe protein-calorie malnutrition [place] resident NKDA Full Code PLAN: monitor pt off of AB rx ( 05/27 SP Tygacil and Colistin d# / , add Merrem d# ) ( 05/15 SP IV vancomycin, Zosyn d# 5 ) ( SP Merrem and Colistin INH d# / ) ( 03/13 SP vancomycin and Zosyn d# 5 ) Monitor CBC, temperatures Monitor CMP Monitor CXR vent support, trach care, aspiration precautions wound care transfuse prn DNR/DNI Subjective Allergies: Coded Allergies: No Known Allergies (Unverified , 03/07/17) Subjective DNR / DNI Objective Vital Signs Last 24 Hour Vital Signs Date Time Temp Pulse Resp B/P Pulse Ox O2 Delivery O2 Flow Rate FiO2 05/29/17 16:47 84 24 40 05/29/17 16:00 99.1 104 22 94/52 100 Mechanical Ventilator 40 05/29/17 16:00 40 05/29/17 16:00 99 05/29/17 14:56 97 27 40 05/29/17 12:41 81 21 40 05/29/17 12:00 40 05/29/17 12:00 98.6 96 20 104/55 99 Mechanical Ventilator 40 05/29/17 11:46 98 05/29/17 10:58 95 26 40 05/29/17 08:42 110 20 40 05/29/17 08:40 107 108/69 05/29/17 08:00 98.1 107 20 108/69 100 Mechanical Ventilator 40 05/29/17 08:00 40 05/29/17 07:37 102 05/29/17 06:57 107 19 40 05/29/17 04:38 103 20 40 05/29/17 04:00 98.2 106 20 113/66 100 Mechanical Ventilator 40 05/29/17 04:00 103 05/29/17 04:00 40 05/29/17 03:27 121 20 40 05/29/17 03:12 98.4 05/29/17 00:46 120 18 40 05/29/17 00:00 40 05/29/17 00:00 126 05/28/17 23:31 98.4 126 20 101/80 100 Mechanical Ventilator 40 05/28/17 23:03 125 22 40 05/28/17 21:20 121 23 40 05/28/17 20:00 125 05/28/17 20:00 40 05/28/17 20:00 98.4 127 24 97/57 100 Mechanical Ventilator 40 05/28/17 18:51 124 23 40 Height (Feet): 5 Height (Inches): 7.00 Weight (Pounds): 126 HEENT: anicteric Respiratory/Chest: no accessory muscle use Cardiovascular: normal peripheral pulses Abdomen: soft, non tender Laboratory Tests Test 05/29/17 03:40 White Blood Count 17.1 K/UL (4.8-10.8) H Red Blood Count 2.81 M/UL (4.70-6.10) L Hemoglobin 7.8 G/DL (14.2-18.0) L Hematocrit 24.9 % (42.0-52.0) L Mean Corpuscular Volume 89 FL (80-99) Mean Corpuscular Hemoglobin 27.7 PG (27.0-31.0) Mean Corpuscular Hemoglobin Concent 31.2 G/DL (32.0-36.0) L Red Cell Distribution Width 18.0 % (11.6-14.8) H Platelet Count 297 K/UL (150-450) Mean Platelet Volume 9.2 FL (6.5-10.1) Neutrophils (%) (Auto) % (45.0-75.0) Lymphocytes (%) (Auto) % (20.0-45.0) Monocytes (%) (Auto) % (1.0-10.0) Eosinophils (%) (Auto) % (0.0-3.0) Basophils (%) (Auto) % (0.0-2.0) Differential Total Cells Counted 100 Neutrophils % (Manual) 84 % (45-75) H Lymphocytes % (Manual) 11 % (20-45) L Monocytes % (Manual) 2 % (1-10) Eosinophils % (Manual) 3 % (0-3) Basophils % (Manual) 0 % (0-2) Band Neutrophils 0 % (0-8) Platelet Estimate Adequate Platelet Morphology Normal Hypochromasia 1+ Anisocytosis 1+ Sodium Level 146 mEQ/L (135-145) H Potassium Level 3.1 mEQ/L (3.4-4.9) L Chloride Level 108 mEQ/L (98-107) H Carbon Dioxide Level 25 mEQ/L (20-30) Anion Gap 13 (5-15) Blood Urea Nitrogen 54 mg/dL (7-23) #H Creatinine 0.5 mg/dL (0.7-1.2) L Estimat Glomerular Filtration Rate > 60 mL/min (>60) Glucose Level 114 mg/dL (74-106) H Calcium Level 8.1 mg/dL (8.6-10.2) L Phosphorus Level 3.5 mg/dL (2.5-4.8) Magnesium Level 2.0 mg/dL (1.7-2.5) Total Bilirubin 0.3 mg/dL (0.0-1.2) Aspartate Amino Transf (AST/SGOT) 20 U/L (5-40) Alanine Aminotransferase (ALT/SGPT) 17 U/L (3-41) Alkaline Phosphatase 157 U/L (40-129) H Total Protein 6.5 g/dL (6.6-8.7) L Albumin < 0.4 g/dL (3.5-5.2) L Globulin 6.1 g/dL Albumin/Globulin Ratio 0.0 (1.0-2.7) L Current Medications Medications (Trade) Dose Ordered Sig/Tameka Route PRN Reason Start Time Stop Time Status Last Admin Dose Admin Acetaminophen 650 mg 650 mg Q4H PRN ORAL Mild Pain/Temp > 100.5 05/27/17 09:00 06/26/17 08:59 05/29/17 02:13 Ascorbic Acid (Vitamin C) 500 mg DAILY GT 05/26/17 09:00 06/25/17 08:59 05/29/17 08:40 Carvedilol (Coreg) 3.125 mg Q12HR GT 05/29/17 09:00 06/24/17 20:59 05/29/17 08:40 Dextrose (D5W 1000ml) 1,000 ml @ 125 mls/hr Q8H IV 05/27/17 09:00 06/26/17 08:59 05/29/17 16:30 Dextrose (Dextrose 50%) STAT PRN IV Hypoglycemia 05/25/17 16:00 06/24/17 15:59 Heparin Sodium (Porcine) (Heparin 5000 units/ml) 5,000 units EVERY 12 HOURS SUBQ 05/25/17 21:00 06/24/17 20:59 05/29/17 08:40 Levetiracetam (Keppra) 500 mg Q12HR GT 05/25/17 21:00 06/24/17 20:59 05/29/17 08:40 Loperamide HCl (Imodium) 2 mg Q6H PRN GT Diarrhea 05/29/17 11:30 06/28/17 11:29 05/29/17 14:36 Ondansetron HCl (Zofran) 4 mg Q6H PRN IVP Nausea & Vomiting 05/25/17 16:15 06/24/17 16:14 Polyethylene Glycol (Miralax) 17 gm DAILYPRN PRN GT Constipation 05/25/17 16:00 06/24/17 15:59 Sodium Hypochlorite (Dakin's Half Strength) 1 applic DAILY TOPIC 05/26/17 09:00 06/25/17 08:59 05/29/17 08:51 Spironolactone (Aldactone) 25 mg DAILY GT 05/26/17 09:00 06/25/17 08:59 05/29/17 08:40 MARCUS PA M.D. May 29, 2017 18:03
--- NOTE | 2017-05-29 18:30 | Cardiology Progress Note ---
Assessment/Plan Assessment/Plan paf cardiomyopathy chf chronic respirator failure chronic diarreha hypernatremia amiod daily tele reviwed sinus / sinus tachy / nsvt abx off diuretic on free water iv na improved will decreas ivf rate to 50 stillhas sig diarrhea agree with prbc tx is on bb acei in future' bp low hodl parmamteer for meds d/w rn Subjective ROS Limited/Unobtainable: Yes Subjective vent Objective Last 24 Hour Vital Signs Date Time Temp Pulse Resp B/P Pulse Ox O2 Delivery O2 Flow Rate FiO2 05/29/17 16:47 84 24 40 05/29/17 16:00 99.1 104 22 94/52 100 Mechanical Ventilator 40 05/29/17 16:00 40 05/29/17 16:00 99 05/29/17 14:56 97 27 40 05/29/17 12:41 81 21 40 05/29/17 12:00 40 05/29/17 12:00 98.6 96 20 104/55 99 Mechanical Ventilator 40 05/29/17 11:46 98 05/29/17 10:58 95 26 40 05/29/17 08:42 110 20 40 05/29/17 08:40 107 108/69 05/29/17 08:00 98.1 107 20 108/69 100 Mechanical Ventilator 40 05/29/17 08:00 40 05/29/17 07:37 102 05/29/17 06:57 107 19 40 05/29/17 04:38 103 20 40 05/29/17 04:00 98.2 106 20 113/66 100 Mechanical Ventilator 40 05/29/17 04:00 103 05/29/17 04:00 40 05/29/17 03:27 121 20 40 05/29/17 03:12 98.4 05/29/17 00:46 120 18 40 05/29/17 00:00 40 05/29/17 00:00 126 05/28/17 23:31 98.4 126 20 101/80 100 Mechanical Ventilator 40 05/28/17 23:03 125 22 40 05/28/17 21:20 121 23 40 05/28/17 20:00 125 05/28/17 20:00 40 05/28/17 20:00 98.4 127 24 97/57 100 Mechanical Ventilator 40 05/28/17 18:51 124 23 40 General Appearance: no apparent distress, alert, on vent, patient on isolation Neck: supple Cardiovascular: normal rate, regular rhythm Respiratory/Chest: rhonchi - bilaterally Abdomen: normal bowel sounds, non tender, soft Extremities: no swelling Intake and Output 05/28/17 05/29/17 19:00 07:00 Intake Total 2405 ml 2911.667 ml Output Total 1200 ml 1400 ml Balance 1205 ml 1511.667 ml Intake Free Water 250 ml 150 ml IV Total 1375 ml 1981.667 ml Tube Feeding 780 ml 780 ml Output Urine Total 800 ml 600 ml Stool Total 400 ml 800 ml Laboratory Tests Test 05/29/17 03:40 White Blood Count 17.1 K/UL (4.8-10.8) H Red Blood Count 2.81 M/UL (4.70-6.10) L Hemoglobin 7.8 G/DL (14.2-18.0) L Hematocrit 24.9 % (42.0-52.0) L Mean Corpuscular Volume 89 FL (80-99) Mean Corpuscular Hemoglobin 27.7 PG (27.0-31.0) Mean Corpuscular Hemoglobin Concent 31.2 G/DL (32.0-36.0) L Red Cell Distribution Width 18.0 % (11.6-14.8) H Platelet Count 297 K/UL (150-450) Mean Platelet Volume 9.2 FL (6.5-10.1) Neutrophils (%) (Auto) % (45.0-75.0) Lymphocytes (%) (Auto) % (20.0-45.0) Monocytes (%) (Auto) % (1.0-10.0) Eosinophils (%) (Auto) % (0.0-3.0) Basophils (%) (Auto) % (0.0-2.0) Differential Total Cells Counted 100 Neutrophils % (Manual) 84 % (45-75) H Lymphocytes % (Manual) 11 % (20-45) L Monocytes % (Manual) 2 % (1-10) Eosinophils % (Manual) 3 % (0-3) Basophils % (Manual) 0 % (0-2) Band Neutrophils 0 % (0-8) Platelet Estimate Adequate Platelet Morphology Normal Hypochromasia 1+ Anisocytosis 1+ Sodium Level 146 mEQ/L (135-145) H Potassium Level 3.1 mEQ/L (3.4-4.9) L Chloride Level 108 mEQ/L (98-107) H Carbon Dioxide Level 25 mEQ/L (20-30) Anion Gap 13 (5-15) Blood Urea Nitrogen 54 mg/dL (7-23) #H Creatinine 0.5 mg/dL (0.7-1.2) L Estimat Glomerular Filtration Rate > 60 mL/min (>60) Glucose Level 114 mg/dL (74-106) H Calcium Level 8.1 mg/dL (8.6-10.2) L Phosphorus Level 3.5 mg/dL (2.5-4.8) Magnesium Level 2.0 mg/dL (1.7-2.5) Total Bilirubin 0.3 mg/dL (0.0-1.2) Aspartate Amino Transf (AST/SGOT) 20 U/L (5-40) Alanine Aminotransferase (ALT/SGPT) 17 U/L (3-41) Alkaline Phosphatase 157 U/L (40-129) H Total Protein 6.5 g/dL (6.6-8.7) L Albumin < 0.4 g/dL (3.5-5.2) L Globulin 6.1 g/dL Albumin/Globulin Ratio 0.0 (1.0-2.7) L CELI FALCON May 29, 2017 18:30
[2017-05-29 21:00] VITALS: BP 94/62
[2017-05-29 21:06] VITALS: BP 94/62
[2017-05-30] VITALS (8 sets, daily range): BP systolic 93–128; BP diastolic 54–77
[2017-05-30 05:40] LABS: ANION GAP 14 (5-15); BASOPHILS % (AUTO) 0.3 % (0.0-2.0); CALCIUM 8.4 mg/dL (8.6-10.2); CARBON DIOXIDE 23 mEQ/L (20-30); CHLORIDE 106 mEQ/L (98-107); CREATININE 0.5 mg/dL (0.7-1.2); EOSINOPHILS % (AUTO) 2.3 % (0.0-3.0); GLOMERULAR FILTRATION RATE > 60 mL/min (>60); HEMOLYSIS 16; LYMPHOCYTES % (AUTO) 9.6 % (20.0-45.0); MEAN CORPUSCULAR HEMOGLOBIN 27.1 PG (27.0-31.0); MEAN CORPUSCULAR HGB CONC 31.5 G/DL (32.0-36.0); MEAN CORPUSCULAR VOLUME 86 FL (80-99); MEAN PLATELET VOLUME 9.4 FL (6.5-10.1); MONOCYTES % (AUTO) 6.3 % (1.0-10.0); NEUTROPHILS % (AUTO) 81.5 % (45.0-75.0); PLATELET COUNT 301 K/UL (150-450); POTASSIUM 3.5 mEQ/L (3.4-4.9); RED BLOOD COUNT 3.44 M/UL (4.70-6.10); RED CELL DISTRIBUTION WIDTH 16.8 % (11.6-14.8); SODIUM 143 mEQ/L (135-145); WHITE BLOOD COUNT 16.2 K/UL (4.8-10.8)
--- NOTE | 2017-05-30 07:37 | Cardiology Progress Note ---
Assessment/Plan Assessment/Plan paf cardiomyopathy chf chronic respirator failure chronic diarreha hypernatremia amiod daily tele reviwed sinus / sinus tachy abx off diuretic on free water iv na improved now only 50 cc / hour of d5w may need to decreawse but still with sig diarrhea stillhas sig diarrhea agree with prbc tx is on bb acei in future' Subjective ROS Limited/Unobtainable: Yes Subjective vent Objective Last 24 Hour Vital Signs Date Time Temp Pulse Resp B/P Pulse Ox O2 Delivery O2 Flow Rate FiO2 05/30/17 07:04 114 19 40 05/30/17 05:20 96 20 40 05/30/17 04:00 40 05/30/17 04:00 113 05/30/17 03:26 97.9 114 22 111/59 100 Mechanical Ventilator 40 05/30/17 03:06 88 16 40 05/30/17 01:11 99 20 40 05/30/17 00:00 98.3 100 24 97/56 100 Mechanical Ventilator 40 05/29/17 23:59 40 05/29/17 23:51 104 05/29/17 22:46 92 23 40 05/29/17 21:38 103 18 40 05/29/17 21:06 98.1 100 22 94/62 100 Mechanical Ventilator 40 05/29/17 21:00 98.1 100 22 94/62 100 Mechanical Ventilator 40 05/29/17 21:00 100 94/62 05/29/17 20:00 40 05/29/17 20:00 98 05/29/17 19:09 96 23 40 05/29/17 16:47 84 24 40 05/29/17 16:00 99.1 104 22 94/52 100 Mechanical Ventilator 40 05/29/17 16:00 40 05/29/17 16:00 99 05/29/17 14:56 97 27 40 05/29/17 12:41 81 21 40 05/29/17 12:00 40 05/29/17 12:00 98.6 96 20 104/55 99 Mechanical Ventilator 40 05/29/17 11:46 98 05/29/17 10:58 95 26 40 05/29/17 08:42 110 20 40 05/29/17 08:40 107 108/69 05/29/17 08:00 98.1 107 20 108/69 100 Mechanical Ventilator 40 05/29/17 08:00 40 05/29/17 07:37 102 General Appearance: no apparent distress, on vent, patient on isolation Cardiovascular: regular rhythm Respiratory/Chest: rhonchi - bilaterally Extremities: no swelling Intake and Output 05/29/17 05/30/17 19:00 07:00 Intake Total 2348.3 ml 1530 ml Output Total 2000 ml 1500 ml Balance 348.3 ml 30 ml Intake Free Water 100 ml 150 ml IV Total 1133.3 ml 600 ml Tube Feeding 780 ml 780 ml Blood Product 275 ml Other 60 ml Output Urine Total 1400 ml 900 ml Stool Total 600 ml 600 ml Laboratory Tests Test 05/30/17 03:40 White Blood Count 16.2 K/UL (4.8-10.8) H Red Blood Count 3.44 M/UL (4.70-6.10) L Hemoglobin 9.3 G/DL (14.2-18.0) L Hematocrit 29.7 % (42.0-52.0) L Mean Corpuscular Volume 86 FL (80-99) Mean Corpuscular Hemoglobin 27.1 PG (27.0-31.0) Mean Corpuscular Hemoglobin Concent 31.5 G/DL (32.0-36.0) L Red Cell Distribution Width 16.8 % (11.6-14.8) H Platelet Count 301 K/UL (150-450) Mean Platelet Volume 9.4 FL (6.5-10.1) Neutrophils (%) (Auto) 81.5 % (45.0-75.0) H Lymphocytes (%) (Auto) 9.6 % (20.0-45.0) L Monocytes (%) (Auto) 6.3 % (1.0-10.0) Eosinophils (%) (Auto) 2.3 % (0.0-3.0) Basophils (%) (Auto) 0.3 % (0.0-2.0) Sodium Level 143 mEQ/L (135-145) Potassium Level 3.5 mEQ/L (3.4-4.9) Chloride Level 106 mEQ/L (98-107) Carbon Dioxide Level 23 mEQ/L (20-30) Anion Gap 14 (5-15) Blood Urea Nitrogen 43 mg/dL (7-23) H Creatinine 0.5 mg/dL (0.7-1.2) L Estimat Glomerular Filtration Rate > 60 mL/min (>60) Glucose Level 101 mg/dL (74-106) Calcium Level 8.4 mg/dL (8.6-10.2) CELI BARNARD May 30, 2017 07:37
--- NOTE | 2017-05-30 08:31 | Infectious Diseases Prog Note ---
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 - SCx MDR - ACB , KPC SP Rx - CXR: Worsening atelectasis versus pneumonia right lung base - h/o Provid a+ XDR PSA and Providencia // Stage IV sacral decubitus, not grossly infected - surveillance WCx KPC and ACB, strep, CONS ( colonizer ) - h/o polymicrobial MDR colonization // HCV Ab+ - Abdominal ultrasound of liver : unremarkable // Negative C.difficile 05/22 // Probable sepsis, SP // Leukocytosis - persistent, improved CT of C/A/P : No evidence of abscess , Pulmonary bibasal parenchymal consolidation // Low grade fever - resolved Severe anemia SP PRBCs Sinus tachycardia Chronic VDRF SP trach, PEG h/o cardiac arrest, anoxic encephalopathy Cardiomyopathy SP defibrillator placement Paroxysmal atrial fibrillation Cachexia / severe protein[place]cal[place] malnutrition [place] MDRO colonized NKDA DNR/I PLAN: monitor pt off of AB rx ( 05/27 SP Tygacil and Colistin d# / , add Merrem d# ) ( 05/15 SP IV vancomycin, Zosyn d# 5 ) ( SP Merrem and Colistin INH d# / ) ( 03/13 SP vancomycin and Zosyn d# 5 ) Monitor CBC, temperatures Monitor CMP Monitor CXR vent support, trach care, aspiration precautions wound care transfuse prn Subjective Allergies: Coded Allergies: No Known Allergies (Unverified , 03/07/17) Subjective remains afebrile. appears comfortable Objective Vital Signs Last 24 Hour Vital Signs Date Time Temp Pulse Resp B/P Pulse Ox O2 Delivery O2 Flow Rate FiO2 05/30/17 08:05 98.1 111 21 128/71 100 Mechanical Ventilator 40 05/30/17 07:50 40 05/30/17 07:04 114 19 40 05/30/17 05:20 96 20 40 05/30/17 04:00 40 05/30/17 04:00 113 05/30/17 03:26 97.9 114 22 111/59 100 Mechanical Ventilator 40 05/30/17 03:06 88 16 40 05/30/17 01:11 99 20 40 05/30/17 00:00 98.3 100 24 97/56 100 Mechanical Ventilator 40 05/29/17 23:59 40 05/29/17 23:51 104 05/29/17 22:46 92 23 40 05/29/17 21:38 103 18 40 05/29/17 21:06 98.1 100 22 94/62 100 Mechanical Ventilator 40 05/29/17 21:00 98.1 100 22 94/62 100 Mechanical Ventilator 40 05/29/17 21:00 100 94/62 05/29/17 20:00 40 05/29/17 20:00 98 05/29/17 19:09 96 23 40 05/29/17 16:47 84 24 40 05/29/17 16:00 99.1 104 22 94/52 100 Mechanical Ventilator 40 05/29/17 16:00 40 05/29/17 16:00 99 05/29/17 14:56 97 27 40 05/29/17 12:41 81 21 40 05/29/17 12:00 40 05/29/17 12:00 98.6 96 20 104/55 99 Mechanical Ventilator 40 05/29/17 11:46 98 05/29/17 10:58 95 26 40 05/29/17 08:42 110 20 40 05/29/17 08:40 107 108/69 Height (Feet): 5 Height (Inches): 7.00 Weight (Pounds): 126 General Appearance: no acute distress Respiratory/Chest: no respiratory distress Cardiovascular: normal rate, regular rhythm Abdomen: normal bowel sounds, soft, non tender, non distended Laboratory Tests Test 05/30/17 03:40 White Blood Count 16.2 K/UL (4.8-10.8) H Red Blood Count 3.44 M/UL (4.70-6.10) L Hemoglobin 9.3 G/DL (14.2-18.0) L Hematocrit 29.7 % (42.0-52.0) L Mean Corpuscular Volume 86 FL (80-99) Mean Corpuscular Hemoglobin 27.1 PG (27.0-31.0) Mean Corpuscular Hemoglobin Concent 31.5 G/DL (32.0-36.0) L Red Cell Distribution Width 16.8 % (11.6-14.8) H Platelet Count 301 K/UL (150-450) Mean Platelet Volume 9.4 FL (6.5-10.1) Neutrophils (%) (Auto) 81.5 % (45.0-75.0) H Lymphocytes (%) (Auto) 9.6 % (20.0-45.0) L Monocytes (%) (Auto) 6.3 % (1.0-10.0) Eosinophils (%) (Auto) 2.3 % (0.0-3.0) Basophils (%) (Auto) 0.3 % (0.0-2.0) Sodium Level 143 mEQ/L (135-145) Potassium Level 3.5 mEQ/L (3.4-4.9) Chloride Level 106 mEQ/L (98-107) Carbon Dioxide Level 23 mEQ/L (20-30) Anion Gap 14 (5-15) Blood Urea Nitrogen 43 mg/dL (7-23) H Creatinine 0.5 mg/dL (0.7-1.2) L Estimat Glomerular Filtration Rate > 60 mL/min (>60) Glucose Level 101 mg/dL (74-106) Calcium Level 8.4 mg/dL (8.6-10.2) L Current Medications Medications (Trade) Dose Ordered Sig/Tameka Route PRN Reason Start Time Stop Time Status Last Admin Dose Admin Acetaminophen (Tylenol) 650 mg Q4H PRN ORAL Mild Pain/Temp > 100.5 05/27/17 09:00 06/26/17 08:59 05/29/17 02:13 Ascorbic Acid (Vitamin C) 500 mg DAILY GT 05/26/17 09:00 06/25/17 08:59 05/29/17 08:40 Carvedilol (Coreg) 3.125 mg Q12HR GT 05/29/17 09:00 06/24/17 20:59 05/29/17 08:40 Dextrose (D5W 1000ml) 1,000 ml @ 50 mls/hr Q20H IV 05/29/17 20:00 06/28/17 19:59 05/29/17 19:00 Dextrose (Dextrose 50%) STAT PRN IV Hypoglycemia 05/25/17 16:00 06/24/17 15:59 Heparin Sodium (Porcine) (Heparin 5000 units/ml) 5,000 units EVERY 12 HOURS SUBQ 05/25/17 21:00 06/24/17 20:59 05/29/17 20:57 Levetiracetam (Keppra) 500 mg Q12HR GT 05/25/17 21:00 06/24/17 20:59 05/29/17 20:52 Loperamide HCl 2 mg 2 mg Q6H PRN GT Diarrhea 05/29/17 11:30 06/28/17 11:29 05/29/17 14:36 Ondansetron HCl (Zofran) 4 mg Q6H PRN IVP Nausea & Vomiting 05/25/17 16:15 06/24/17 16:14 Polyethylene Glycol (Miralax) 17 gm DAILYPRN PRN GT Constipation 05/25/17 16:00 06/24/17 15:59 Sodium Hypochlorite (Dakin's Half Strength) 1 applic DAILY TOPIC 05/26/17 09:00 06/25/17 08:59 05/29/17 08:51 Spironolactone (Aldactone) 25 mg DAILY GT 05/26/17 09:00 06/25/17 08:59 05/29/17 08:40 ROXANNE BELLO May 30, 2017 08:30
[2017-05-30] MEDS: Heparin 5000 units/ml inj SUBQ SCH ×2 (08:53→20:40)
[2017-05-30] MEDS: Spironolactone 25mg tab GT SCH (08:54)
[2017-05-30] MEDS: Ascorbic Acid 500mg tab GT SCH (08:54)
[2017-05-30] MEDS: levETIRAcetam 500mg/5ml Liquid GT SCH ×2 (08:54→20:37)
[2017-05-30] MEDS: Dakin's 0.25% (Half Strength) 16oz TOPIC SCH (08:55)
--- NOTE | 2017-05-30 11:12 | GI Progress Note ---
Assessment/Plan Problems: (1) Anemia ICD Codes: D64.9 - Anemia, unspecified SNOMED: 533739265 Qualifiers: Qualified Codes: D64.9 - Anemia, unspecified (2) EF of 30 (3) Feeding by G-tube ICD Codes: Z93.1 - Gastrostomy status SNOMED: 180129704, 923353959 (4) Transaminitis ICD Codes: R74.0 - Nonspecific elevation of levels of transaminase and lactic acid dehydrogenase [LDH] SNOMED: 900069033 (5) Leukocytosis ICD Codes: D72.829 - Elevated white blood cell count, unspecified SNOMED: 869456302, 027124805 Status: unchanged Status Narrative Discussed with Dr. Alex. Assessment/Plan occult blood stool >> negative x 2 cdiff negative stable H&H, transfuse prn GT replaced. GTFs per dietary, monitor residuals PPI for GI prophylaxis abx Imodium prn fu labs Subjective Subjective limited Objective Last 24 Hour Vital Signs Date Time Temp Pulse Resp B/P Pulse Ox O2 Delivery O2 Flow Rate FiO2 05/30/17 10:54 105 21 40 05/30/17 09:24 113 21 40 05/30/17 08:54 111 128/71 05/30/17 08:05 98.1 111 21 128/71 100 Mechanical Ventilator 40 05/30/17 07:50 40 05/30/17 07:04 114 19 40 05/30/17 05:20 96 20 40 05/30/17 04:00 40 05/30/17 04:00 113 05/30/17 03:26 97.9 114 22 111/59 100 Mechanical Ventilator 40 05/30/17 03:06 88 16 40 05/30/17 01:11 99 20 40 05/30/17 00:00 98.3 100 24 97/56 100 Mechanical Ventilator 40 05/29/17 23:59 40 05/29/17 23:51 104 05/29/17 22:46 92 23 40 05/29/17 21:38 103 18 40 05/29/17 21:06 98.1 100 22 94/62 100 Mechanical Ventilator 40 05/29/17 21:00 98.1 100 22 94/62 100 Mechanical Ventilator 40 05/29/17 21:00 100 94/62 05/29/17 20:00 40 05/29/17 20:00 98 7/13/17 19:09 96 23 40 05/29/17 16:47 84 24 40 05/29/17 16:00 99.1 104 22 94/52 100 Mechanical Ventilator 40 05/29/17 16:00 40 05/29/17 16:00 99 05/29/17 14:56 97 27 40 05/29/17 12:41 81 21 40 05/29/17 12:00 40 05/29/17 12:00 98.6 96 20 104/55 99 Mechanical Ventilator 40 05/29/17 11:46 98 Intake and Output 05/29/17 05/30/17 19:00 07:00 Intake Total 2348.3 ml 1530 ml Output Total 2000 ml 1500 ml Balance 348.3 ml 30 ml Intake Free Water 100 ml 150 ml IV Total 1133.3 ml 600 ml Tube Feeding 780 ml 780 ml Blood Product 275 ml Other 60 ml Output Urine Total 1400 ml 900 ml Stool Total 600 ml 600 ml Laboratory Tests Test 05/30/17 03:40 White Blood Count 16.2 K/UL (4.8-10.8) H Red Blood Count 3.44 M/UL (4.70-6.10) L Hemoglobin 9.3 G/DL (14.2-18.0) L Hematocrit 29.7 % (42.0-52.0) L Mean Corpuscular Volume 86 FL (80-99) Mean Corpuscular Hemoglobin 27.1 PG (27.0-31.0) Mean Corpuscular Hemoglobin Concent 31.5 G/DL (32.0-36.0) L Red Cell Distribution Width 16.8 % (11.6-14.8) H Platelet Count 301 K/UL (150-450) Mean Platelet Volume 9.4 FL (6.5-10.1) Neutrophils (%) (Auto) 81.5 % (45.0-75.0) H Lymphocytes (%) (Auto) 9.6 % (20.0-45.0) L Monocytes (%) (Auto) 6.3 % (1.0-10.0) Eosinophils (%) (Auto) 2.3 % (0.0-3.0) Basophils (%) (Auto) 0.3 % (0.0-2.0) Sodium Level 143 mEQ/L (135-145) Potassium Level 3.5 mEQ/L (3.4-4.9) Chloride Level 106 mEQ/L (98-107) Carbon Dioxide Level 23 mEQ/L (20-30) Anion Gap 14 (5-15) Blood Urea Nitrogen 43 mg/dL (7-23) H Creatinine 0.5 mg/dL (0.7-1.2) L Estimat Glomerular Filtration Rate > 60 mL/min (>60) Glucose Level 101 mg/dL (74-106) Calcium Level 8.4 mg/dL (8.6-10.2) L Height (Feet): 5 Height (Inches): 7.00 Weight (Pounds): 126 General Appearance: no apparent distress, alert, thin Cardiovascular: normal rate Respiratory/Chest: other - mech vent Abdominal Exam: GT site - c/d/i Lani Last N.P. May 30, 2017 11:12
--- NOTE | 2017-05-30 12:35 | Pulmonology Progress Note ---
Assessment/Plan Problems: (1) Acute on chronic respiratory failure (2) Anemia (3) Right pulmonary infiltrate on CXR (4) Chronic respiratory acidosis (5) Feeding by G-tube (6) EF of 30 Respiratory: monitor respiratory rate, adjust FIO2 Cardiac: continue pressors Renal: keep IV fluid Infectious Disease: continue antibiotics Gastrointestinal: hold feedings Endocrine: monitor blood sugar, check TSH, continue sliding scale insulin Hematologic: monitor H/H, transfuse if hgb<8.5 Neurologic: PRN Morphine, keep patient comfortable Affect: PRN ativan Prophylaxis: Heparin Notes Reviewed: global project manager, renal Discussed with: nurses, consultants, disability case manager Subjective ROS Limited/Unobtainable: No Constitutional: Reports: no symptoms HEENT: Repors: no symptoms Respiratory: Reports: no symptoms Allergies: Coded Allergies: No Known Allergies (Unverified , 03/07/17) Objective Last 24 Hour Vital Signs Date Time Temp Pulse Resp B/P Pulse Ox O2 Delivery O2 Flow Rate FiO2 05/30/17 10:54 105 21 40 05/30/17 09:24 113 21 40 05/30/17 08:54 111 128/71 05/30/17 08:05 98.1 111 21 128/71 100 Mechanical Ventilator 40 05/30/17 07:50 40 05/30/17 07:04 114 19 40 05/30/17 05:20 96 20 40 05/30/17 04:00 40 05/30/17 04:00 113 05/30/17 03:26 97.9 114 22 111/59 100 Mechanical Ventilator 40 05/30/17 03:06 88 16 40 05/30/17 01:11 99 20 40 05/30/17 00:00 98.3 100 24 97/56 100 Mechanical Ventilator 40 05/29/17 23:59 40 05/29/17 23:51 104 05/29/17 22:46 92 23 40 05/29/17 21:38 103 18 40 05/29/17 21:06 98.1 100 22 94/62 100 Mechanical Ventilator 40 05/29/17 21:00 98.1 100 22 94/62 100 Mechanical Ventilator 40 05/29/17 21:00 100 94/62 05/29/17 20:00 40 05/29/17 20:00 98 05/29/17 19:09 96 23 40 05/29/17 16:47 84 24 40 05/29/17 16:00 99.1 104 22 94/52 100 Mechanical Ventilator 40 05/29/17 16:00 40 05/29/17 16:00 99 05/29/17 14:56 97 27 40 05/29/17 12:41 81 21 40 Intake and Output 05/29/17 05/30/17 19:00 07:00 Intake Total 2348.3 ml 1530 ml Output Total 2000 ml 1500 ml Balance 348.3 ml 30 ml Intake Free Water 100 ml 150 ml IV Total 1133.3 ml 600 ml Tube Feeding 780 ml 780 ml Blood Product 275 ml Other 60 ml Output Urine Total 1400 ml 900 ml Stool Total 600 ml 600 ml General Appearance: WD/WN, cachetic HEENT: normocephalic, atraumatic Respiratory/Chest: chest wall non-tender, lungs clear Cardiovascular: normal peripheral pulses, normal rate, regular rhythm Abdomen: normal bowel sounds, soft, non tender Genitourinary: normal external genitalia Extremities: no cyanosis Skin: no rash, no ulcers Laboratory Tests 05/30/17 03:40: White Blood Count 16.2H, Red Blood Count 3.44L, Hemoglobin 9.3L, Hematocrit 29.7L, Mean Corpuscular Volume 86, Mean Corpuscular Hemoglobin 27.1, Mean Corpuscular Hemoglobin Concent 31.5L, Red Cell Distribution Width 16.8H, Platelet Count 301, Mean Platelet Volume 9.4, Neutrophils (%) (Auto) 81.5H, Lymphocytes (%) (Auto) 9.6L, Monocytes (%) (Auto) 6.3, Eosinophils (%) (Auto) 2.3, Basophils (%) (Auto) 0.3, Sodium Level 143, Potassium Level 3.5, Chloride Level 106, Carbon Dioxide Level 23, Anion Gap 14, Blood Urea Nitrogen 43H, Creatinine 0.5L, Estimat Glomerular Filtration Rate > 60, Glucose Level 101, Calcium Level 8.4L Current Medications Medications (Trade) Dose Ordered Sig/Tameka Route PRN Reason Start Time Stop Time Status Last Admin Dose Admin Acetaminophen (Tylenol) 650 mg Q4H PRN ORAL Mild Pain/Temp > 100.5 05/27/17 09:00 06/26/17 08:59 05/29/17 02:13 Ascorbic Acid (Vitamin C) 500 mg DAILY GT 05/26/17 09:00 06/25/17 08:59 05/30/17 08:54 Carvedilol (Coreg) 3.125 mg Q12HR GT 05/29/17 09:00 06/24/17 20:59 05/30/17 08:54 Dextrose (D5W 1000ml) 1,000 ml @ 50 mls/hr Q20H IV 05/29/17 20:00 06/28/17 19:59 05/29/17 19:00 Dextrose (Dextrose 50%) STAT PRN IV Hypoglycemia 05/25/17 16:00 06/24/17 15:59 Heparin Sodium (Porcine) (Heparin 5000 units/ml) 5,000 units EVERY 12 HOURS SUBQ 05/25/17 21:00 06/24/17 20:59 05/30/17 08:53 Levetiracetam (Keppra) 500 mg Q12HR GT 05/25/17 21:00 06/24/17 20:59 05/30/17 08:54 Loperamide HCl 2 mg 2 mg Q6H PRN GT Diarrhea 05/29/17 11:30 06/28/17 11:29 05/30/17 08:54 Ondansetron HCl (Zofran) 4 mg Q6H PRN IVP Nausea & Vomiting 05/25/17 16:15 06/24/17 16:14 Polyethylene Glycol (Miralax) 17 gm DAILYPRN PRN GT Constipation 05/25/17 16:00 06/24/17 15:59 Sodium Hypochlorite (Dakin's Half Strength) 1 applic DAILY TOPIC 05/26/17 09:00 06/25/17 08:59 05/30/17 08:55 Spironolactone (Aldactone) 25 mg DAILY GT 05/26/17 09:00 06/25/17 08:59 05/30/17 08:54 ODETTE SMILEY May 30, 2017 12:35
--- NOTE | 2017-05-30 18:02 | Wound Care Consultation ---
Wound Assessment Wound Assessment #1: Wound Present on Admission: No New Wound: Yes Status Change of Wound: No Wound Location Body Site Modif: mid Wound Location Body Site: back Wound Type: pressure ulcer Francis Test: Does not Francis Pressure Ulcer Stage: deep tissue injury - scattered Wound Thickness: Full Thickness Percent of Wound Purple/Maroon: 100 - scattered Wound Drainage Amount: None Wound Drainage Odor: None/Absent Tissue Surrounding Wound: Erythemic Wound General Appearance: Reddened - scattered maroon color Wound Assessment #2: Wound Number: #2 Wound Present on Admission: No New Wound: Yes Status Change of Wound: No Wound Location Body Site Modif: mid, lateral Wound Location Body Site: back Wound Type: pressure ulcer Francis Test: Does not Francis Pressure Ulcer Stage: II - scattered Wound Thickness: Partial Thickness Percent of Wound [place]/Red: 100 Wound Drainage Description: Serosanguineous Wound Drainage Amount: Scant Wound Drainage Odor: None/Absent Tissue Surrounding Wound: Erythemic Wound General Appearance: Reddened Wound Assessment #3: Wound Number: #3 Wound Present on Admission: No New Wound: Yes Status Change of Wound: No Wound Location Body Site Modif: right Wound Location Body Site: trochanter Wound Type: pressure ulcer Francis Test: Does not Francis Pressure Ulcer Stage: deep tissue injury Wound Thickness: Full Thickness Wound Length: 4.0 Wound Width: 4.5 Wound Depth: utd Percent of Wound Purple/Maroon: 100 Wound Drainage Amount: None Wound Drainage Odor: None/Absent Tissue Surrounding Wound: Erythemic Wound General Appearance: Reddened - maroon Wound Comment #1 Right ear stage III pressure ulcer- noted good progress. Same in size #2 Left ear unstageable pressure ulcer- noted good progress increase in pink tissue noted decrease in necrotic tissue noted. #3 Left lateral malleolus unstageable pressure ulcer- Same in size. #4 Left lateral 1st metatarsal head DTI pressure ulcer- Still intact #5 Left heel unstageable pressure ulcer- no further deterioration present. #6 Sacral stage IV/unstageable pressure ulcer- noted site remains unstageable present with slough and maroon color to site. Dr Hahn saw pt. please refer to progress notes. #7 Left ischial tuberosity stage III pressure ulcer- no further deterioration present. 100% pink in color #8 Multiple full thickness scar tissue on Left shoulder, Left lateral knee, Right lateral knee, Left hip all remain intact. #9 Right buttock scattered stage II pressure ulcer. No Deterioration noted. #10 Right heel stage II pressure ulcer. No deterioration noted. #11 Right medial malleolus denuded blister stage II. No deterioration noted. #12 Reassessed this Pt new scattered DTIs and stage II pressure ulcers noted on back #13 Right trochanter DTI pressure ulcer Recommendation -Turn and reposition -Keep clean and dry -Optimize nutrition and cont all recommendation and wound care Treatment. -Assess and f/u accordingly for any changes KENN GRACE RN May 30, 2017 18:02
[2017-05-31 03:57] VITALS: BP 104/62
[2017-05-31 05:29] LABS: BASOPHILS % (AUTO) 0.3 % (0.0-2.0); EOSINOPHILS % (AUTO) 1.3 % (0.0-3.0); LYMPHOCYTES % (AUTO) 12.4 % (20.0-45.0); MEAN CORPUSCULAR HEMOGLOBIN 27.7 PG (27.0-31.0); MEAN CORPUSCULAR HGB CONC 31.6 G/DL (32.0-36.0); MEAN CORPUSCULAR VOLUME 88 FL (80-99); MEAN PLATELET VOLUME 9.7 FL (6.5-10.1); MONOCYTES % (AUTO) 7.4 % (1.0-10.0); NEUTROPHILS % (AUTO) 78.6 % (45.0-75.0); PLATELET COUNT 331 K/UL (150-450); RED BLOOD COUNT 3.49 M/UL (4.70-6.10); RED CELL DISTRIBUTION WIDTH 17.3 % (11.6-14.8); WHITE BLOOD COUNT 14.1 K/UL (4.8-10.8)
[2017-05-31 05:42] LABS: MAGNESIUM 1.5 mg/dL (1.7-2.5); PHOSPHORUS 2.6 mg/dL (2.5-4.8)
[2017-05-31 05:51] LABS: ALANINE AMINOTRANSFERASE 18 U/L (3-41); ALBUMIN/GLOBULIN RATIO 0.4 (1.0-2.7); ANION GAP 15 (5-15); ASPARTATE AMINO TRANSFERASE 20 U/L (5-40); CALCIUM 8.5 mg/dL (8.6-10.2); CARBON DIOXIDE 24 mEQ/L (20-30); CHLORIDE 106 mEQ/L (98-107); CREATININE 0.5 mg/dL (0.7-1.2); GLOMERULAR FILTRATION RATE > 60 mL/min (>60); HEMOLYSIS 1; POTASSIUM 3.7 mEQ/L (3.4-4.9); SODIUM 145 mEQ/L (135-145); TOTAL PROTEIN 6.9 g/dL (6.6-8.7)
[2017-05-31 08:00] VITALS: BP 97/71
[2017-05-31] MEDS: levETIRAcetam 500mg/5ml Liquid GT SCH ×2 (08:50→20:00)
[2017-05-31] MEDS: Ascorbic Acid 500mg tab GT SCH (08:50)
[2017-05-31] MEDS: Spironolactone 25mg tab GT SCH (08:50)
[2017-05-31] MEDS: Dakin's 0.25% (Half Strength) 16oz TOPIC SCH (08:52)
[2017-05-31] MEDS: Heparin 5000 units/ml inj SUBQ SCH ×2 (08:52→20:01)
--- NOTE | 2017-05-31 09:43 | Cardiology Progress Note ---
Assessment/Plan Assessment/Plan paf cardiomyopathy chf chronic respirator failure chronic diarreha hypernatremia amiod daily tele reviwed sinus / sinus tachy abx off diuretic on free water iv na improved now only 50 cc / hour of d5w may need to decreawse but still with sig diarrhea s/p prbc tx hgn better is on bb acei in future' Subjective ROS Limited/Unobtainable: Yes Subjective vent Objective Last 24 Hour Vital Signs Date Time Temp Pulse Resp B/P Pulse Ox O2 Delivery O2 Flow Rate FiO2 05/31/17 08:50 130 97/71 05/31/17 08:39 130 26 40 05/31/17 08:00 99.0 125 28 97/71 100 Mechanical Ventilator 40 05/31/17 08:00 40 05/31/17 07:51 132 05/31/17 06:35 134 23 40 05/31/17 05:07 131 25 40 05/31/17 04:00 134 05/31/17 04:00 40 05/31/17 03:57 98.4 123 19 104/62 100 Mechanical Ventilator 40 05/31/17 00:58 130 23 40 05/31/17 00:01 122 05/31/17 00:00 40 05/30/17 23:38 97.7 122 25 93/58 100 Mechanical Ventilator 40 05/30/17 23:09 116 25 40 05/30/17 20:41 115 94/54 05/30/17 20:41 115 22 40 05/30/17 20:29 98.1 115 22 94/54 100 Mechanical Ventilator 40 05/30/17 20:00 40 05/30/17 20:00 112 05/30/17 18:59 111 23 40 05/30/17 16:59 103 21 40 05/30/17 16:24 109 05/30/17 16:05 40 05/30/17 15:58 97.7 110 21 118/65 100 Mechanical Ventilator 40 05/30/17 15:03 110 22 40 05/30/17 13:07 103 16 40 05/30/17 12:15 98.1 107 22 123/58 100 Mechanical Ventilator 40 05/30/17 12:14 107 05/30/17 12:00 40 05/30/17 10:54 105 21 40 General Appearance: no apparent distress, on vent, patient on isolation Neck: supple Cardiovascular: normal rate, tachycardia Respiratory/Chest: lungs clear - ant Abdomen: soft, distended Extremities: no swelling Intake and Output 05/30/17 05/31/17 19:00 07:00 Intake Total 1570 ml 1405.83 ml Output Total 1450 ml 1550 ml Balance 120 ml -144.17 ml Intake Free Water 290 ml 100 ml IV Total 500 ml 560.83 ml Tube Feeding 780 ml 715 ml Other 30 ml Output Urine Total 950 ml 750 ml Stool Total 500 ml 800 ml Laboratory Tests Test 05/31/17 03:20 White Blood Count 14.1 K/UL (4.8-10.8) H Red Blood Count 3.49 M/UL (4.70-6.10) L Hemoglobin 9.7 G/DL (14.2-18.0) L Hematocrit 30.6 % (42.0-52.0) L Mean Corpuscular Volume 88 FL (80-99) Mean Corpuscular Hemoglobin 27.7 PG (27.0-31.0) Mean Corpuscular Hemoglobin Concent 31.6 G/DL (32.0-36.0) L Red Cell Distribution Width 17.3 % (11.6-14.8) H Platelet Count 331 K/UL (150-450) Mean Platelet Volume 9.7 FL (6.5-10.1) Neutrophils (%) (Auto) 78.6 % (45.0-75.0) H Lymphocytes (%) (Auto) 12.4 % (20.0-45.0) L Monocytes (%) (Auto) 7.4 % (1.0-10.0) Eosinophils (%) (Auto) 1.3 % (0.0-3.0) Basophils (%) (Auto) 0.3 % (0.0-2.0) Sodium Level 145 mEQ/L (135-145) Potassium Level 3.7 mEQ/L (3.4-4.9) Chloride Level 106 mEQ/L (98-107) Carbon Dioxide Level 24 mEQ/L (20-30) Anion Gap 15 (5-15) Blood Urea Nitrogen 37 mg/dL (7-23) H Creatinine 0.5 mg/dL (0.7-1.2) L Estimat Glomerular Filtration Rate > 60 mL/min (>60) Glucose Level 101 mg/dL (74-106) Calcium Level 8.5 mg/dL (8.6-10.2) L Phosphorus Level 2.6 mg/dL (2.5-4.8) Magnesium Level 1.5 mg/dL (1.7-2.5) L Total Bilirubin 0.4 mg/dL (0.0-1.2) Aspartate Amino Transf (AST/SGOT) 20 U/L (5-40) Alanine Aminotransferase (ALT/SGPT) 18 U/L (3-41) Alkaline Phosphatase 183 U/L (40-129) H Total Protein 6.9 g/dL (6.6-8.7) Albumin 2.0 g/dL (3.5-5.2) L Globulin 4.9 g/dL Albumin/Globulin Ratio 0.4 (1.0-2.7) L CELI FALCON May 31, 2017 09:43
[2017-05-31 12:00] VITALS: BP 104/60
--- NOTE | 2017-05-31 14:48 | Pulmonology Progress Note ---
Assessment/Plan Assessment/Plan ASSESSMENT sepsis recurrent HCAP/VAP tachycardia acute on chronic respiratory failure VDRF/trach dysphagia, G tube anemia s/p blood transfusion severe cardiomyopathy AICD HTN hx of hep C st 4 sacral decub POA anoxic encephalopathy hx of cardiac arrest severe protein calorie malnutrition hypo Mg PLAN OF CARE LIGIA status vent trach care, pulmonary toilet ABG stable on current settings, keep as is and titrate settings as needed abx, ID follows m wound cx colonized as per ID sputum cx + Acinetobacter MDR, KPC blood culture negative CT C/A/P no abscess Venous Duplex BLE negative last ECHO with EF 30-35% continue BB, Amiodarone, Lasix, Aldactone for management of systolic heart failure monitor HH , transfuse prn stool OB negative x 2 GI follows G tube replaced PPI strict aspiration precautions GT feeding, monitor tolerance wound care as per wound nurse recommendations ST likely 2 to infection, Mg replaced , stable afterwards bowel regimen pain management Now: ethics decision requested re further care due to inability to locate family per ethics DNR status appropriate for this patient given multitude of chronic problems, including VDRF, trach, sepsis, multiple decub, persistent leukocytosis gentle IV hydration DVT prophylaxis wound care seizure precautions, Keppra continue BB and Aldactone for management of CHF s/p abx Rx TF, aspiration precautions, monitor tolerance TF changed as per dietary recommendations due to diarrhea continue Imodium prn placement case discussed and evaluated by supervising physician Subjective Allergies: Coded Allergies: No Known Allergies (Unverified , 03/07/17) Subjective patient now DNR/DNI as per ethics committee decision Objective Last 24 Hour Vital Signs Date Time Temp Pulse Resp B/P Pulse Ox O2 Delivery O2 Flow Rate FiO2 05/31/17 13:10 108 19 40 05/31/17 12:00 105 05/31/17 12:00 97.3 107 19 104/60 100 Mechanical Ventilator 40 05/31/17 12:00 40 05/31/17 11:10 102 21 40 05/31/17 08:50 130 97/71 05/31/17 08:39 130 26 40 05/31/17 08:00 99.0 125 28 97/71 100 Mechanical Ventilator 40 05/31/17 08:00 40 05/31/17 07:51 132 05/31/17 06:35 134 23 40 05/31/17 05:07 131 25 40 05/31/17 04:00 134 05/31/17 04:00 40 05/31/17 03:57 98.4 123 19 104/62 100 Mechanical Ventilator 40 05/31/17 00:58 130 23 40 05/31/17 00:01 122 05/31/17 00:00 40 05/30/17 23:38 97.7 122 25 93/58 100 Mechanical Ventilator 40 05/30/17 23:09 116 25 40 05/30/17 20:41 115 94/54 05/30/17 20:41 115 22 40 05/30/17 20:29 98.1 115 22 94/54 100 Mechanical Ventilator 40 05/30/17 20:00 40 05/30/17 20:00 112 05/30/17 18:59 111 23 40 05/30/17 16:59 103 21 40 05/30/17 16:24 109 05/30/17 16:05 40 05/30/17 15:58 97.7 110 21 118/65 100 Mechanical Ventilator 40 05/30/17 15:03 110 22 40 Intake and Output 05/30/17 05/31/17 19:00 07:00 Intake Total 1570 ml 1470.83 ml Output Total 1450 ml 1550 ml Balance 120 ml -79.17 ml Intake Free Water 290 ml 100 ml IV Total 500 ml 560.83 ml Tube Feeding 780 ml 780 ml Other 30 ml Output Urine Total 950 ml 750 ml Stool Total 500 ml 800 ml Objective General Appearance: no acute distress, cachetic, other - bedridden vent dependent AA male vent AC 600-16-40% HEENT: status post trach - Shiley#8, secretions small, yellow, thick Respiratory/Chest: no respiratory distress, few isolated rhonchi Cardiovascular: regular rhythm, tachycardia Abdomen: normal bowel sounds, soft, non tender, G tube 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: abnormal gait/ bedridden , poorly responsive , Musculoskeletal: atrophy - BLE Laboratory Tests 05/31/17 03:20: White Blood Count 14.1H, Red Blood Count 3.49L, Hemoglobin 9.7L, Hematocrit 30.6L, Mean Corpuscular Volume 88, Mean Corpuscular Hemoglobin 27.7, Mean Corpuscular Hemoglobin Concent 31.6L, Red Cell Distribution Width 17.3H, Platelet Count 331, Mean Platelet Volume 9.7, Neutrophils (%) (Auto) 78.6H, Lymphocytes (%) (Auto) 12.4L, Monocytes (%) (Auto) 7.4, Eosinophils (%) (Auto) 1.3, Basophils (%) (Auto) 0.3, Sodium Level 145, Potassium Level 3.7, Chloride Level 106, Carbon Dioxide Level 24, Anion Gap 15, Blood Urea Nitrogen 37H, Creatinine 0.5L, Estimat Glomerular Filtration Rate > 60, Glucose Level 101, Calcium Level 8.5L, Phosphorus Level 2.6, Magnesium Level 1.5L, Total Bilirubin 0.4, Aspartate Amino Transf (AST/SGOT) 20, Alanine Aminotransferase (ALT/SGPT) 18, Alkaline Phosphatase 183H, Total Protein 6.9, Albumin 2.0L, Globulin 4.9, Albumin/Globulin Ratio 0.4L Current Medications Medications (Trade) Dose Ordered Sig/Tameka Route PRN Reason Start Time Stop Time Status Last Admin Dose Admin Acetaminophen (Tylenol) 650 mg Q4H PRN ORAL Mild Pain/Temp > 100.5 05/27/17 09:00 06/26/17 08:59 05/31/17 08:52 Ascorbic Acid (Vitamin C) 500 mg DAILY GT 05/26/17 09:00 06/25/17 08:59 05/31/17 08:50 Carvedilol (Coreg) 3.125 mg Q12HR GT 05/29/17 09:00 06/24/17 20:59 05/31/17 08:50 Dextrose (D5W 1000ml) 1,000 ml @ 50 mls/hr Q20H IV 05/29/17 20:00 06/28/17 19:59 05/31/17 05:47 Dextrose (Dextrose 50%) STAT PRN IV Hypoglycemia 05/25/17 16:00 06/24/17 15:59 Heparin Sodium (Porcine) (Heparin 5000 units/ml) 5,000 units EVERY 12 HOURS SUBQ 05/25/17 21:00 06/24/17 20:59 05/31/17 08:52 Levetiracetam (Keppra) 500 mg Q12HR GT 05/25/17 21:00 06/24/17 20:59 05/31/17 08:50 Loperamide HCl 2 mg 2 mg Q6H PRN GT Diarrhea 05/29/17 11:30 06/28/17 11:29 05/31/17 08:50 Morphine Sulfate (Morphine Sulfate) 4 mg Q4H PRN IVP For Pain 05/31/17 06:45 06/07/17 06:44 Ondansetron HCl (Zofran) 4 mg Q6H PRN IVP Nausea & Vomiting 05/25/17 16:15 06/24/17 16:14 Polyethylene Glycol (Miralax) 17 gm DAILYPRN PRN GT Constipation 05/25/17 16:00 06/24/17 15:59 Sodium Hypochlorite (Dakin's Half Strength) 1 applic DAILY TOPIC 05/26/17 09:00 06/25/17 08:59 05/31/17 08:52 Spironolactone (Aldactone) 25 mg DAILY GT 05/26/17 09:00 06/25/17 08:59 05/31/17 08:50 Diaz (Enriqueta)Chiara NP May 31, 2017 14:48
[2017-05-31 16:00] VITALS: BP 144/74
[2017-05-31 19:38] VITALS: BP 128/70
--- NOTE | 2017-05-31 20:10 | Infectious Diseases Prog Note ---
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 - SCx MDR - ACB , KPC SP Rx - CXR: Worsening atelectasis versus pneumonia right lung base - h/o Provid a+ XDR PSA and Providencia // Stage IV sacral decubitus, not grossly infected - surveillance WCx KPC and ACB, strep, CONS ( colonizer ) - h/o polymicrobial MDR colonization // HCV Ab+ - Abdominal ultrasound of liver : unremarkable // Negative C.difficile 05/22 // Probable sepsis, SP // Leukocytosis - persistent, improved CT of C/A/P : No evidence of abscess , Pulmonary bibasal parenchymal consolidation // Low grade fever - resolved Severe anemia SP PRBCs Sinus tachycardia Chronic VDRF SP trach, PEG h/o cardiac arrest, anoxic encephalopathy Cardiomyopathy SP defibrillator placement Paroxysmal atrial fibrillation Cachexia / severe protein-calorie malnutrition [place] resident MDRO colonized NKDA DNR/I PLAN: monitor pt off of AB rx ( 05/27 SP Tygacil and Colistin d# / , add Merrem d# ) ( 05/15 SP IV vancomycin, Zosyn d# 5 ) ( SP Merrem and Colistin INH d# / ) ( 03/13 SP vancomycin and Zosyn d# 5 ) Monitor CBC, temperatures Monitor CMP Monitor CXR vent support, trach care, aspiration precautions wound care transfuse prn Subjective Allergies: Coded Allergies: No Known Allergies (Unverified , 03/07/17) Subjective remains afebrile. appears comfortable Objective Vital Signs Last 24 Hour Vital Signs Date Time Temp Pulse Resp B/P Pulse Ox O2 Delivery O2 Flow Rate FiO2 05/31/17 20:00 125 128/70 05/31/17 19:38 98.2 125 22 128/70 100 Mechanical Ventilator 40 05/31/17 18:45 121 20 40 05/31/17 16:38 117 20 40 05/31/17 16:00 97.0 115 21 144/74 100 Mechanical Ventilator 40 05/31/17 16:00 40 05/31/17 15:23 114 05/31/17 15:08 107 22 40 05/31/17 13:10 108 19 40 05/31/17 12:00 105 05/31/17 12:00 97.3 107 19 104/60 100 Mechanical Ventilator 40 05/31/17 12:00 40 05/31/17 11:10 102 21 40 05/31/17 08:50 130 97/71 05/31/17 08:39 130 26 40 05/31/17 08:00 99.0 125 28 97/71 100 Mechanical Ventilator 40 05/31/17 08:00 40 05/31/17 07:51 132 05/31/17 06:35 134 23 40 05/31/17 05:07 131 25 40 05/31/17 04:00 134 05/31/17 04:00 40 05/31/17 03:57 98.4 123 19 104/62 100 Mechanical Ventilator 40 05/31/17 00:58 130 23 40 05/31/17 00:01 122 05/31/17 00:00 40 05/30/17 23:38 97.7 122 25 93/58 100 Mechanical Ventilator 40 05/30/17 23:09 116 25 40 05/30/17 20:41 115 94/54 05/30/17 20:41 115 22 40 05/30/17 20:29 98.1 115 22 94/54 100 Mechanical Ventilator 40 Height (Feet): 5 Height (Inches): 7.00 Weight (Pounds): 126 General Appearance: no acute distress Respiratory/Chest: no respiratory distress Cardiovascular: normal rate, regular rhythm Abdomen: normal bowel sounds, soft, non tender, non distended Laboratory Tests Test 05/31/17 03:20 White Blood Count 14.1 K/UL (4.8-10.8) H Red Blood Count 3.49 M/UL (4.70-6.10) L Hemoglobin 9.7 G/DL (14.2-18.0) L Hematocrit 30.6 % (42.0-52.0) L Mean Corpuscular Volume 88 FL (80-99) Mean Corpuscular Hemoglobin 27.7 PG (27.0-31.0) Mean Corpuscular Hemoglobin Concent 31.6 G/DL (32.0-36.0) L Red Cell Distribution Width 17.3 % (11.6-14.8) H Platelet Count 331 K/UL (150-450) Mean Platelet Volume 9.7 FL (6.5-10.1) Neutrophils (%) (Auto) 78.6 % (45.0-75.0) H Lymphocytes (%) (Auto) 12.4 % (20.0-45.0) L Monocytes (%) (Auto) 7.4 % (1.0-10.0) Eosinophils (%) (Auto) 1.3 % (0.0-3.0) Basophils (%) (Auto) 0.3 % (0.0-2.0) Sodium Level 145 mEQ/L (135-145) Potassium Level 3.7 mEQ/L (3.4-4.9) Chloride Level 106 mEQ/L (98-107) Carbon Dioxide Level 24 mEQ/L (20-30) Anion Gap 15 (5-15) Blood Urea Nitrogen 37 mg/dL (7-23) H Creatinine 0.5 mg/dL (0.7-1.2) L Estimat Glomerular Filtration Rate > 60 mL/min (>60) Glucose Level 101 mg/dL (74-106) Calcium Level 8.5 mg/dL (8.6-10.2) L Phosphorus Level 2.6 mg/dL (2.5-4.8) Magnesium Level 1.5 mg/dL (1.7-2.5) L Total Bilirubin 0.4 mg/dL (0.0-1.2) Aspartate Amino Transf (AST/SGOT) 20 U/L (5-40) Alanine Aminotransferase (ALT/SGPT) 18 U/L (3-41) Alkaline Phosphatase 183 U/L (40-129) H Total Protein 6.9 g/dL (6.6-8.7) Albumin 2.0 g/dL (3.5-5.2) L Globulin 4.9 g/dL Albumin/Globulin Ratio 0.4 (1.0-2.7) L Current Medications Medications (Trade) Dose Ordered Sig/Tameka Route PRN Reason Start Time Stop Time Status Last Admin Dose Admin Acetaminophen (Tylenol) 650 mg Q4H PRN ORAL Mild Pain/Temp > 100.5 05/27/17 09:00 06/26/17 08:59 05/31/17 08:52 Ascorbic Acid (Vitamin C) 500 mg DAILY GT 05/26/17 09:00 06/25/17 08:59 05/31/17 08:50 Carvedilol (Coreg) 3.125 mg Q12HR GT 05/29/17 09:00 06/24/17 20:59 05/31/17 20:00 Dextrose (D5W 1000ml) 1,000 ml @ 50 mls/hr Q20H IV 05/29/17 20:00 06/28/17 19:59 05/31/17 05:47 Dextrose (Dextrose 50%) STAT PRN IV Hypoglycemia 05/25/17 16:00 06/24/17 15:59 Heparin Sodium (Porcine) (Heparin 5000 units/ml) 5,000 units EVERY 12 HOURS SUBQ 05/25/17 21:00 06/24/17 20:59 05/31/17 20:01 Levetiracetam (Keppra) 500 mg Q12HR GT 05/25/17 21:00 06/24/17 20:59 05/31/17 20:00 Loperamide HCl 2 mg 2 mg Q6H PRN GT Diarrhea 05/29/17 11:30 06/28/17 11:29 05/31/17 08:50 Morphine Sulfate (Morphine Sulfate) 4 mg Q4H PRN IVP For Pain 05/31/17 06:45 06/07/17 06:44 Ondansetron HCl (Zofran) 4 mg Q6H PRN IVP Nausea & Vomiting 05/25/17 16:15 06/24/17 16:14 Polyethylene Glycol (Miralax) 17 gm DAILYPRN PRN GT Constipation 05/25/17 16:00 06/24/17 15:59 Sodium Hypochlorite (Dakin's Half Strength) 1 applic DAILY TOPIC 05/26/17 09:00 06/25/17 08:59 05/31/17 08:52 Spironolactone (Aldactone) 25 mg DAILY GT 05/26/17 09:00 06/25/17 08:59 05/31/17 08:50 ROXANNE BELLO May 31, 2017 20:10
[2017-06-01] VITALS (7 sets, daily range): BP systolic 118–140; BP diastolic 59–74
[2017-06-01] MEDS: Morphine Sulfate 4mg/ml Inj IVP PRN (02:08)
--- NOTE | 2017-06-01 07:37 | Infectious Diseases Prog Note ---
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 - SCx MDR - ACB , KPC SP Rx - CXR: Worsening atelectasis versus pneumonia right lung base - h/o Provid a+ XDR PSA and Providencia // Stage IV sacral decubitus, not grossly infected - surveillance WCx KPC and ACB, strep, CONS ( colonizer ) - h/o polymicrobial MDR colonization // HCV Ab+ - Abdominal ultrasound of liver : unremarkable // Negative C.difficile 05/22 // Probable sepsis, SP // Leukocytosis - persistent, improved. No repeat CBC CT of C/A/P : No evidence of abscess , Pulmonary bibasal parenchymal consolidation // Low grade fever - resolved Severe anemia SP PRBCs Sinus tachycardia Chronic VDRF SP trach, PEG h/o cardiac arrest, anoxic encephalopathy Cardiomyopathy SP defibrillator placement Paroxysmal atrial fibrillation Cachexia / severe protein-calorie malnutrition [place] resident MDRO colonized NKDA DNR/I PLAN: monitor pt off of AB rx ( 05/27 SP Tygacil and Colistin d# / , add Merrem d# / ) ( 05/15 SP IV vancomycin, Zosyn d# 5 ) ( SP Merrem and Colistin INH d# / ) ( 03/13 SP vancomycin and Zosyn d# 5 ) Monitor CBC, temperatures Monitor CMP Monitor CXR vent support, trach care, aspiration precautions wound care transfuse prn Subjective Allergies: Coded Allergies: No Known Allergies (Unverified , 03/07/17) Subjective remains afebrile. appears comfortable Objective Vital Signs Last 24 Hour Vital Signs Date Time Temp Pulse Resp B/P Pulse Ox O2 Delivery O2 Flow Rate FiO2 06/01/17 06:58 116 17 40 06/01/17 04:47 113 17 40 06/01/17 04:00 121 06/01/17 04:00 97.7 123 16 136/74 100 Mechanical Ventilator 40 06/01/17 04:00 40 06/01/17 03:25 125 16 40 06/01/17 01:00 122 24 40 06/01/17 00:00 121 06/01/17 00:00 98.0 122 23 140/66 100 Mechanical Ventilator 40 06/01/17 00:00 40 05/31/17 23:13 105 24 40 05/31/17 21:11 110 20 40 05/31/17 20:00 40 05/31/17 20:00 125 128/70 05/31/17 20:00 118 05/31/17 19:38 98.2 125 22 128/70 100 Mechanical Ventilator 40 05/31/17 18:45 121 20 40 05/31/17 16:38 117 20 40 05/31/17 16:00 97.0 115 21 144/74 100 Mechanical Ventilator 40 05/31/17 16:00 40 05/31/17 15:23 114 05/31/17 15:08 107 22 40 05/31/17 13:10 108 19 40 05/31/17 12:00 105 05/31/17 12:00 97.3 107 19 104/60 100 Mechanical Ventilator 40 05/31/17 12:00 40 05/31/17 11:10 102 21 40 05/31/17 08:50 130 97/71 05/31/17 08:39 130 26 40 05/31/17 08:00 99.0 125 28 97/71 100 Mechanical Ventilator 40 05/31/17 08:00 40 05/31/17 07:51 132 Height (Feet): 5 Height (Inches): 7.00 Weight (Pounds): 126 General Appearance: no acute distress Respiratory/Chest: no respiratory distress Cardiovascular: normal rate, regular rhythm Abdomen: normal bowel sounds, soft, non tender, non distended Current Medications Medications (Trade) Dose Ordered Sig/Tameka Route PRN Reason Start Time Stop Time Status Last Admin Dose Admin Acetaminophen (Tylenol) 650 mg Q4H PRN ORAL Mild Pain/Temp > 100.5 05/27/17 09:00 06/26/17 08:59 05/31/17 08:52 Ascorbic Acid (Vitamin C) 500 mg DAILY GT 05/26/17 09:00 06/25/17 08:59 05/31/17 08:50 Carvedilol (Coreg) 3.125 mg Q12HR GT 05/29/17 09:00 06/24/17 20:59 05/31/17 20:00 Dextrose (D5W 1000ml) 1,000 ml @ 50 mls/hr Q20H IV 05/29/17 20:00 06/28/17 19:59 06/01/17 03:13 Dextrose (Dextrose 50%) STAT PRN IV Hypoglycemia 05/25/17 16:00 06/24/17 15:59 Heparin Sodium (Porcine) (Heparin 5000 units/ml) 5,000 units EVERY 12 HOURS SUBQ 05/25/17 21:00 06/24/17 20:59 05/31/17 20:01 Levetiracetam (Keppra) 500 mg Q12HR GT 05/25/17 21:00 06/24/17 20:59 05/31/17 20:00 Loperamide HCl 2 mg 2 mg Q6H PRN GT Diarrhea 05/29/17 11:30 06/28/17 11:29 06/01/17 04:12 Morphine Sulfate (Morphine Sulfate) 4 mg Q4H PRN IVP For Pain 05/31/17 06:45 06/07/17 06:44 06/01/17 02:08 Ondansetron HCl (Zofran) 4 mg Q6H PRN IVP Nausea & Vomiting 05/25/17 16:15 06/24/17 16:14 Polyethylene Glycol (Miralax) 17 gm DAILYPRN PRN GT Constipation 05/25/17 16:00 06/24/17 15:59 Sodium Hypochlorite (Dakin's Half Strength) 1 applic DAILY TOPIC 05/26/17 09:00 06/25/17 08:59 05/31/17 08:52 Spironolactone (Aldactone) 25 mg DAILY GT 05/26/17 09:00 06/25/17 08:59 05/31/17 08:50 ROXANNE BELLO Jun 01, 2017 07:37
[2017-06-01] MEDS: Spironolactone 25mg tab GT SCH (08:26)
[2017-06-01] MEDS: Heparin 5000 units/ml inj SUBQ SCH ×2 (08:26→21:10)
[2017-06-01] MEDS: Ascorbic Acid 500mg tab GT SCH (08:26)
[2017-06-01] MEDS: Dakin's 0.25% (Half Strength) 16oz TOPIC SCH (08:27)
[2017-06-01] MEDS: levETIRAcetam 500mg/5ml Liquid GT SCH ×2 (08:27→21:09)
--- NOTE | 2017-06-01 09:27 | Pulmonology Progress Note ---
Assessment/Plan Assessment/Plan ASSESSMENT sepsis recurrent HCAP/VAP tachycardia acute on chronic respiratory failure VDRF/trach dysphagia, G tube anemia s/p blood transfusion severe cardiomyopathy AICD HTN hx of hep C st 4 sacral decub POA anoxic encephalopathy hx of cardiac arrest severe protein calorie malnutrition hypo Mg PLAN OF CARE LIGIA status vent trach care, pulmonary toilet ABG stable on current settings, keep as is and titrate settings as needed abx, ID follows wound cx colonized as per ID sputum cx + Acinetobacter MDR, KPC blood culture negative CT C/A/P no abscess Venous Duplex BLE negative last ECHO with EF 30-35% continue BB, Amiodarone, Lasix, Aldactone for management of systolic heart failure monitor HH , transfuse prn stool OB negative x 2 GI follows G tube replaced PPI strict aspiration precautions GT feeding, monitor tolerance wound care as per wound nurse recommendations ST likely 2 to infection, Mg replaced , stable afterwards bowel regimen pain management Now: ethics decision requested re further care due to inability to locate family per ethics DNR status appropriate for this patient given multitude of chronic problems, including VDRF, trach, sepsis, multiple decub, persistent leukocytosis gentle IV hydration DVT prophylaxis wound care seizure precautions, Keppra continue BB and Aldactone for management of CHF s/p abx Rx TF, aspiration precautions, monitor tolerance TF changed as per dietary recommendations due to diarrhea continue Imodium prn dc plan pending for placement family requesting podiatry for toe nails care , called case discussed and evaluated by supervising physician Subjective Allergies: Coded Allergies: No Known Allergies (Unverified , 03/07/17) Subjective patient DNR/DNI as per ethics committee decision condition unchanged remains with leukocytosis, tachycardia chronic reparatory failure, vent/trach dependent , anoxic encephalopathy y Objective Last 24 Hour Vital Signs Date Time Temp Pulse Resp B/P Pulse Ox O2 Delivery O2 Flow Rate FiO2 06/01/17 09:19 100 16 40 06/01/17 08:27 114 136/67 06/01/17 08:00 40 06/01/17 08:00 98.3 114 18 136/67 100 Mechanical Ventilator 40 06/01/17 07:48 114 06/01/17 06:58 116 17 40 06/01/17 04:47 113 17 40 06/01/17 04:00 121 06/01/17 04:00 97.7 123 16 136/74 100 Mechanical Ventilator 40 06/01/17 04:00 40 06/01/17 03:25 125 16 40 06/01/17 01:00 122 24 40 06/01/17 00:00 121 06/01/17 00:00 98.0 122 23 140/66 100 Mechanical Ventilator 40 06/01/17 00:00 40 05/31/17 23:13 105 24 40 05/31/17 21:11 110 20 40 05/31/17 20:00 40 05/31/17 20:00 125 128/70 05/31/17 20:00 118 05/31/17 19:38 98.2 125 22 128/70 100 Mechanical Ventilator 40 05/31/17 18:45 121 20 40 05/31/17 16:38 117 20 40 05/31/17 16:00 97.0 115 21 144/74 100 Mechanical Ventilator 40 05/31/17 16:00 40 05/31/17 15:23 114 05/31/17 15:08 107 22 40 05/31/17 13:10 108 19 40 05/31/17 12:00 105 05/31/17 12:00 97.3 107 19 104/60 100 Mechanical Ventilator 40 05/31/17 12:00 40 05/31/17 11:10 102 21 40 Intake and Output 05/31/17 06/01/17 19:00 07:00 Intake Total 1605 ml 1209.16 ml Output Total 1650 ml 1400 ml Balance -45 ml -190.84 ml Intake Free Water 200 ml 120 ml IV Total 800 ml 539.16 ml Tube Feeding 545 ml 550 ml Other 60 ml Output Urine Total 850 ml 400 ml Stool Total 800 ml 1000 ml Objective General Appearance: no acute distress, cachetic, bedridden vent dependent AA male vent AC 600-16-40% HEENT: status post trach - Shiley#8, secretions small, yellow, thick Respiratory/Chest: no respiratory distress, few isolated rhonchi Cardiovascular: regular rhythm, tachycardia Abdomen: normal bowel sounds, soft, non tender, G tube 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: abnormal gait/ bedridden , poorly responsive , Musculoskeletal: atrophy - BLE Current Medications Medications (Trade) Dose Ordered Sig/Tameka Route PRN Reason Start Time Stop Time Status Last Admin Dose Admin Acetaminophen (Tylenol) 650 mg Q4H PRN ORAL Mild Pain/Temp > 100.5 05/27/17 09:00 06/26/17 08:59 05/31/17 08:52 Ascorbic Acid (Vitamin C) 500 mg DAILY GT 05/26/17 09:00 06/25/17 08:59 06/01/17 08:26 Carvedilol (Coreg) 3.125 mg Q12HR GT 05/29/17 09:00 06/24/17 20:59 06/01/17 08:27 Dextrose (D5W 1000ml) 1,000 ml @ 50 mls/hr Q20H IV 05/29/17 20:00 06/28/17 19:59 06/01/17 03:13 Dextrose (Dextrose 50%) STAT PRN IV Hypoglycemia 05/25/17 16:00 06/24/17 15:59 Heparin Sodium (Porcine) (Heparin 5000 units/ml) 5,000 units EVERY 12 HOURS SUBQ 05/25/17 21:00 06/24/17 20:59 06/01/17 08:26 Levetiracetam (Keppra) 500 mg Q12HR GT 05/25/17 21:00 06/24/17 20:59 06/01/17 08:27 Loperamide HCl 2 mg 2 mg Q6H PRN GT Diarrhea 05/29/17 11:30 06/28/17 11:29 06/01/17 04:12 Morphine Sulfate (Morphine Sulfate) 4 mg Q4H PRN IVP For Pain 05/31/17 06:45 06/07/17 06:44 06/01/17 02:08 Ondansetron HCl (Zofran) 4 mg Q6H PRN IVP Nausea & Vomiting 05/25/17 16:15 06/24/17 16:14 Polyethylene Glycol (Miralax) 17 gm DAILYPRN PRN GT Constipation 05/25/17 16:00 06/24/17 15:59 Sodium Hypochlorite (Dakin's Half Strength) 1 applic DAILY TOPIC 05/26/17 09:00 06/25/17 08:59 06/01/17 08:27 Spironolactone (Aldactone) 25 mg DAILY GT 05/26/17 09:00 06/25/17 08:59 06/01/17 08:26 Chiara Perales NP (Vanchtein) Jun 01, 2017 09:27
[2017-06-01] MEDS ORDERED: DuoNeb 0.5-3(2.5)mg/3ml neb HHN PRN (09:30)
[2017-06-01] MEDS ORDERED: NS 275ml ONE ×2 (11:01→11:02)
[2017-06-01] MEDS ORDERED: Tubing IV Blood Pump IV ONE (11:02)
[2017-06-01] MEDS ORDERED: Tubing IV Secondary IV ONE ×2 (11:02→15:06)
--- NOTE | 2017-06-01 13:05 | Cardiology Progress Note ---
Assessment/Plan Assessment/Plan paf cardiomyopathy chf chronic respirator failure chronic diarreha hypernatremia amiod daily tele reviwed sinus / sinus tachy abx off diuretic dc ivf is on bb acei in future poor overall prognosis Subjective ROS Limited/Unobtainable: Yes Subjective vent Objective Last 24 Hour Vital Signs Date Time Temp Pulse Resp B/P Pulse Ox O2 Delivery O2 Flow Rate FiO2 06/01/17 12:10 100 16 40 06/01/17 12:00 40 06/01/17 12:00 97.8 102 20 118/60 100 Mechanical Ventilator 40 06/01/17 11:55 99 06/01/17 09:19 100 16 40 06/01/17 08:27 114 136/67 06/01/17 08:00 40 06/01/17 08:00 98.3 114 18 136/67 100 Mechanical Ventilator 40 06/01/17 07:48 114 06/01/17 06:58 116 17 40 06/01/17 04:47 113 17 40 06/01/17 04:00 121 06/01/17 04:00 97.7 123 16 136/74 100 Mechanical Ventilator 40 06/01/17 04:00 40 06/01/17 03:25 125 16 40 06/01/17 01:00 122 24 40 06/01/17 00:00 121 06/01/17 00:00 98.0 122 23 140/66 100 Mechanical Ventilator 40 06/01/17 00:00 40 05/31/17 23:13 105 24 40 05/31/17 21:11 110 20 40 05/31/17 20:00 40 05/31/17 20:00 125 128/70 05/31/17 20:00 118 05/31/17 19:38 98.2 125 22 128/70 100 Mechanical Ventilator 40 05/31/17 18:45 121 20 40 05/31/17 16:38 117 20 40 05/31/17 16:00 97.0 115 21 144/74 100 Mechanical Ventilator 40 05/31/17 16:00 40 05/31/17 15:23 114 05/31/17 15:08 107 22 40 05/31/17 13:10 108 19 40 General Appearance: no apparent distress, on vent, patient on isolation Extremities: no swelling Intake and Output 05/31/17 06/01/17 19:00 07:00 Intake Total 1605 ml 1209.16 ml Output Total 1650 ml 1400 ml Balance -45 ml -190.84 ml Intake Free Water 200 ml 120 ml IV Total 800 ml 539.16 ml Tube Feeding 545 ml 550 ml Other 60 ml Output Urine Total 850 ml 400 ml Stool Total 800 ml 1000 ml CELI FALCON Jun 01, 2017 13:05
[2017-06-02] VITALS (7 sets, daily range): BP systolic 95–135; BP diastolic 55–68
[2017-06-02] MEDS: Morphine Sulfate 4mg/ml Inj IVP PRN ×2 (03:11→15:41)
[2017-06-02 04:28] LABS: BASOPHILS % (AUTO) 0.4 % (0.0-2.0); LYMPHOCYTES % (AUTO) 11.6 % (20.0-45.0); MEAN CORPUSCULAR HEMOGLOBIN 28.2 PG (27.0-31.0); MEAN CORPUSCULAR VOLUME 88 FL (80-99); MEAN PLATELET VOLUME 7.8 FL (6.5-10.1); MONOCYTES % (AUTO) 8.2 % (1.0-10.0); NEUTROPHILS % (AUTO) 77.7 % (45.0-75.0); PLATELET COUNT 347 K/UL (150-450); RED BLOOD COUNT 3.48 M/UL (4.70-6.10); RED CELL DISTRIBUTION WIDTH 17.7 % (11.6-14.8); WHITE BLOOD COUNT 10.5 K/UL (4.8-10.8)
[2017-06-02 04:34] LABS: ANION GAP 15 (5-15); CALCIUM 8.3 mg/dL (8.6-10.2); CARBON DIOXIDE 24 mEQ/L (20-30); CHLORIDE 102 mEQ/L (98-107); CREATININE 0.4 mg/dL (0.7-1.2); GLOMERULAR FILTRATION RATE > 60 mL/min (>60); HEMOLYSIS 28; POTASSIUM 3.3 mEQ/L (3.4-4.9); SODIUM 141 mEQ/L (135-145)
[2017-06-02] MEDS: Ascorbic Acid 500mg tab GT SCH (10:11)
[2017-06-02] MEDS: Spironolactone 25mg tab GT SCH (10:11)
[2017-06-02] MEDS: levETIRAcetam 500mg/5ml Liquid GT SCH ×2 (10:11→21:25)
[2017-06-02] MEDS: Heparin 5000 units/ml inj SUBQ SCH ×2 (10:12→21:25)
[2017-06-02] MEDS: Dakin's 0.25% (Half Strength) 16oz TOPIC SCH (10:12)
[2017-06-02] MEDS ORDERED: KEPPRA LIQ100 MG/1 M GT (10:48)
[2017-06-02] MEDS ORDERED: IMODIUM2 MG/10 ML GT (10:48)
[2017-06-02] MEDS ORDERED: ALDACTONE25 MG GT (10:48)
--- NOTE | 2017-06-02 11:15 | Infectious Diseases Prog Note ---
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 CT of C/A/P : No evidence of abscess , Pulmonary bibasal parenchymal consolidation // Low grade fever - resolved Severe anemia SP PRBCs Sinus tachycardia Chronic VDRF SP trach, PEG h/o cardiac arrest, anoxic encephalopathy Cardiomyopathy SP defibrillator placement Paroxysmal atrial fibrillation Cachexia / severe protein-calorie malnutrition [place] resident MDRO colonized NKDA DNR/I PLAN: monitor pt off of AB rx ( 05/27 SP Tygacil and Colistin d# / , add Merrem d# ) ( 05/15 SP IV vancomycin, Zosyn d# 5 ) ( SP Merrem and Colistin INH d# / ) ( 03/13 SP vancomycin and Zosyn d# 5 ) Monitor CBC, temperatures Monitor CMP Monitor CXR vent support, trach care, aspiration precautions wound care transfuse prn Subjective Allergies: Coded Allergies: No Known Allergies (Unverified , 03/07/17) Subjective comfortable Objective Vital Signs Last 24 Hour Vital Signs Date Time Temp Pulse Resp B/P Pulse Ox O2 Delivery O2 Flow Rate FiO2 06/02/17 10:11 113 131/62 06/02/17 08:46 113 17 40 06/02/17 08:00 97.3 116 17 131/62 100 Mechanical Ventilator 40 06/02/17 08:00 40 06/02/17 08:00 105 06/02/17 07:10 115 16 40 06/02/17 05:20 117 16 40 06/02/17 04:00 98.2 116 22 119/60 100 Mechanical Ventilator 40 06/02/17 04:00 40 06/02/17 04:00 126 06/02/17 03:10 120 17 40 06/02/17 01:02 119 17 40 06/02/17 00:02 40 06/02/17 00:00 120 06/01/17 23:57 98.8 122 23 123/59 100 Mechanical Ventilator 40 06/01/17 23:11 121 18 40 06/01/17 21:13 118 23 40 06/01/17 21:09 115 133/67 06/01/17 20:56 40 06/01/17 20:00 103 06/01/17 20:00 98.1 115 20 133/67 100 Mechanical Ventilator 40 06/01/17 19:00 107 19 40 06/01/17 17:29 105 18 40 06/01/17 16:00 104 06/01/17 16:00 40 06/01/17 16:00 97.7 107 20 127/65 100 Mechanical Ventilator 40 06/01/17 15:00 104 16 40 06/01/17 13:15 103 17 40 06/01/17 12:10 100 16 40 06/01/17 12:00 40 06/01/17 12:00 97.8 102 20 118/60 100 Mechanical Ventilator 40 06/01/17 11:55 99 Height (Feet): 5 Height (Inches): 7.00 Weight (Pounds): 126 HEENT: mucous membranes moist Respiratory/Chest: no respiratory distress Cardiovascular: regular rhythm Abdomen: no organomegaly Laboratory Tests Test 06/02/17 03:20 White Blood Count 10.5 K/UL (4.8-10.8) Red Blood Count 3.48 M/UL (4.70-6.10) L Hemoglobin 9.8 G/DL (14.2-18.0) L Hematocrit 30.7 % (42.0-52.0) L Mean Corpuscular Volume 88 FL (80-99) Mean Corpuscular Hemoglobin 28.2 PG (27.0-31.0) Mean Corpuscular Hemoglobin Concent 32.0 G/DL (32.0-36.0) Red Cell Distribution Width 17.7 % (11.6-14.8) H Platelet Count 347 K/UL (150-450) Mean Platelet Volume 7.8 FL (6.5-10.1) Neutrophils (%) (Auto) 77.7 % (45.0-75.0) H Lymphocytes (%) (Auto) 11.6 % (20.0-45.0) L Monocytes (%) (Auto) 8.2 % (1.0-10.0) Eosinophils (%) (Auto) 2.0 % (0.0-3.0) Basophils (%) (Auto) 0.4 % (0.0-2.0) Sodium Level 141 mEQ/L (135-145) Potassium Level 3.3 mEQ/L (3.4-4.9) L Chloride Level 102 mEQ/L (98-107) Carbon Dioxide Level 24 mEQ/L (20-30) Anion Gap 15 (5-15) Blood Urea Nitrogen 43 mg/dL (7-23) H Creatinine 0.4 mg/dL (0.7-1.2) L Estimat Glomerular Filtration Rate > 60 mL/min (>60) Glucose Level 84 mg/dL (74-106) Calcium Level 8.3 mg/dL (8.6-10.2) L Current Medications Medications (Trade) Dose Ordered Sig/Tameka Route PRN Reason Start Time Stop Time Status Last Admin Dose Admin Acetaminophen (Tylenol) 650 mg Q4H PRN ORAL Mild Pain/Temp > 100.5 05/27/17 09:00 06/26/17 08:59 05/31/17 08:52 Albuterol/ Ipratropium (DuoNeb 0.5-3(2.5)mg/3ml) 3 ml Q4H PRN HHN Shortness of Breath 06/01/17 09:30 06/06/17 09:29 Ascorbic Acid (Vitamin C) 500 mg DAILY GT 05/26/17 09:00 06/25/17 08:59 06/02/17 10:11 Carvedilol (Coreg) 3.125 mg Q12HR GT 05/29/17 09:00 06/24/17 20:59 06/02/17 10:11 Dextrose (Dextrose 50%) STAT PRN IV Hypoglycemia 05/25/17 16:00 06/24/17 15:59 Heparin Sodium (Porcine) (Heparin 5000 units/ml) 5,000 units EVERY 12 HOURS SUBQ 05/25/17 21:00 06/24/17 20:59 06/02/17 10:12 Levetiracetam (Keppra) 500 mg Q12HR GT 05/25/17 21:00 06/24/17 20:59 06/02/17 10:11 Loperamide HCl (Imodium) 2 mg Q6H PRN GT Diarrhea 05/29/17 11:30 06/28/17 11:29 06/01/17 04:12 Morphine Sulfate (Morphine Sulfate) 4 mg Q4H PRN IVP For Pain 05/31/17 06:45 06/07/17 06:44 06/02/17 03:11 Ondansetron HCl (Zofran) 4 mg Q6H PRN IVP Nausea & Vomiting 05/25/17 16:15 06/24/17 16:14 Polyethylene Glycol (Miralax) 17 gm DAILYPRN PRN GT Constipation 05/25/17 16:00 06/24/17 15:59 Sodium Hypochlorite (Dakin's Half Strength) 1 applic DAILY TOPIC 05/26/17 09:00 06/25/17 08:59 06/02/17 10:12 Spironolactone (Aldactone) 25 mg DAILY GT 05/26/17 09:00 06/25/17 08:59 06/02/17 10:11 MARCUS PA M.D. Jun 02, 2017 11:15
--- NOTE | 2017-06-02 12:54 | Diagnostic Imaging Report ---
Indication: Dyspnea Comparison: 05/25/17 A single view chest radiograph was obtained. Findings: No definite infiltrate identified. Heart size is normal. Tracheostomy is present. Pacemaker noted. Impression: No change from the prior study
--- NOTE | 2017-06-02 13:19 | GI Progress Note ---
Assessment/Plan Problems: (1) Anemia ICD Codes: D64.9 - Anemia, unspecified SNOMED: 625738423 Qualifiers: Qualified Codes: D64.9 - Anemia, unspecified (2) EF of 30 (3) Feeding by G-tube ICD Codes: Z93.1 - Gastrostomy status SNOMED: 415181172, 943861642 (4) Transaminitis ICD Codes: R74.0 - Nonspecific elevation of levels of transaminase and lactic acid dehydrogenase [LDH] SNOMED: 839536609 (5) Leukocytosis ICD Codes: D72.829 - Elevated white blood cell count, unspecified SNOMED: 050960044, 354298445 Status: stable Status Narrative Discussed with Dr. Alex. Assessment/Plan occult blood stool >> negative x 2 cdiff negative stable H&H, transfuse prn GT replaced. GTFs per dietary, monitor residuals PPI for GI prophylaxis abx Imodium prn fu labs Subjective Subjective limited Objective Last 24 Hour Vital Signs Date Time Temp Pulse Resp B/P Pulse Ox O2 Delivery O2 Flow Rate FiO2 06/02/17 12:45 107 16 40 06/02/17 12:04 105 06/02/17 12:04 40 06/02/17 12:00 97.9 105 16 114/55 100 Mechanical Ventilator 40 06/02/17 11:22 104 16 40 06/02/17 10:11 113 131/62 06/02/17 08:46 113 17 40 06/02/17 08:00 97.3 116 17 131/62 100 Mechanical Ventilator 40 06/02/17 08:00 40 06/02/17 08:00 105 06/02/17 07:10 115 16 40 06/02/17 05:20 117 16 40 06/02/17 04:00 98.2 116 22 119/60 100 Mechanical Ventilator 40 06/02/17 04:00 40 06/02/17 04:00 126 06/02/17 03:10 120 17 40 06/02/17 01:02 119 17 40 06/02/17 00:02 40 06/02/17 00:00 120 06/01/17 23:57 98.8 122 23 123/59 100 Mechanical Ventilator 40 06/01/17 23:11 121 18 40 06/01/17 21:13 118 23 40 7/16/17 21:09 115 133/67 06/01/17 20:56 40 06/01/17 20:00 103 06/01/17 20:00 98.1 115 20 133/67 100 Mechanical Ventilator 40 06/01/17 19:00 107 19 40 06/01/17 17:29 105 18 40 06/01/17 16:00 104 06/01/17 16:00 40 06/01/17 16:00 97.7 107 20 127/65 100 Mechanical Ventilator 40 06/01/17 15:00 104 16 40 Intake and Output 06/01/17 06/02/17 19:00 07:00 Intake Total 1210 ml 1015 ml Output Total 1000 ml 1600 ml Balance 210 ml -585 ml Intake Free Water 100 ml 300 ml IV Total 300 ml Tube Feeding 750 ml 715 ml Other 60 ml Output Urine Total 600 ml 1500 ml Stool Total 400 ml 100 ml Laboratory Tests Test 06/02/17 03:20 White Blood Count 10.5 K/UL (4.8-10.8) Red Blood Count 3.48 M/UL (4.70-6.10) L Hemoglobin 9.8 G/DL (14.2-18.0) L Hematocrit 30.7 % (42.0-52.0) L Mean Corpuscular Volume 88 FL (80-99) Mean Corpuscular Hemoglobin 28.2 PG (27.0-31.0) Mean Corpuscular Hemoglobin Concent 32.0 G/DL (32.0-36.0) Red Cell Distribution Width 17.7 % (11.6-14.8) H Platelet Count 347 K/UL (150-450) Mean Platelet Volume 7.8 FL (6.5-10.1) Neutrophils (%) (Auto) 77.7 % (45.0-75.0) H Lymphocytes (%) (Auto) 11.6 % (20.0-45.0) L Monocytes (%) (Auto) 8.2 % (1.0-10.0) Eosinophils (%) (Auto) 2.0 % (0.0-3.0) Basophils (%) (Auto) 0.4 % (0.0-2.0) Sodium Level 141 mEQ/L (135-145) Potassium Level 3.3 mEQ/L (3.4-4.9) L Chloride Level 102 mEQ/L (98-107) Carbon Dioxide Level 24 mEQ/L (20-30) Anion Gap 15 (5-15) Blood Urea Nitrogen 43 mg/dL (7-23) H Creatinine 0.4 mg/dL (0.7-1.2) L Estimat Glomerular Filtration Rate > 60 mL/min (>60) Glucose Level 84 mg/dL (74-106) Calcium Level 8.3 mg/dL (8.6-10.2) L Height (Feet): 5 Height (Inches): 7.00 Weight (Pounds): 126 General Appearance: no apparent distress, alert Cardiovascular: normal rate Respiratory/Chest: normal breath sounds, no respiratory distress, other - mech vent Abdominal Exam: GT site - c/d/i Lani Last N.P. Jun 02, 2017 13:19
--- NOTE | 2017-06-02 18:18 | Cardiology Progress Note ---
Assessment/Plan Assessment/Plan paf cardiomyopathy chf chronic respirator failure chronic diarreha hypernatremia amiod daily tele reviwed sinus / sinus tachy abx off diuretic off ivf is on bb acei low dose poor overall prognosis Subjective ROS Limited/Unobtainable: Yes Subjective vent Objective Last 24 Hour Vital Signs Date Time Temp Pulse Resp B/P Pulse Ox O2 Delivery O2 Flow Rate FiO2 06/02/17 17:26 104 16 40 06/02/17 16:11 97.9 06/02/17 16:00 97.2 108 22 135/65 100 Mechanical Ventilator 40 06/02/17 15:35 107 06/02/17 15:35 40 06/02/17 15:05 105 16 40 06/02/17 12:45 107 16 40 06/02/17 12:04 105 06/02/17 12:04 40 06/02/17 12:00 97.9 105 16 114/55 100 Mechanical Ventilator 40 06/02/17 11:22 104 16 40 06/02/17 10:11 113 131/62 06/02/17 08:46 113 17 40 06/02/17 08:00 97.3 116 17 131/62 100 Mechanical Ventilator 40 06/02/17 08:00 40 06/02/17 08:00 105 06/02/17 07:10 115 16 40 06/02/17 05:20 117 16 40 06/02/17 04:00 98.2 116 22 119/60 100 Mechanical Ventilator 40 06/02/17 04:00 40 06/02/17 04:00 126 06/02/17 03:10 120 17 40 06/02/17 01:02 119 17 40 06/02/17 00:02 40 06/02/17 00:00 120 06/01/17 23:57 98.8 122 23 123/59 100 Mechanical Ventilator 40 06/01/17 23:11 121 18 40 06/01/17 21:13 118 23 40 06/01/17 21:09 115 133/67 06/01/17 20:56 40 06/01/17 20:00 103 06/01/17 20:00 98.1 115 20 133/67 100 Mechanical Ventilator 40 06/01/17 19:00 107 19 40 General Appearance: on vent, patient on isolation Extremities: no swelling Intake and Output 06/01/17 06/02/17 19:00 07:00 Intake Total 1210 ml 1015 ml Output Total 1000 ml 1600 ml Balance 210 ml -585 ml Intake Free Water 100 ml 300 ml IV Total 300 ml Tube Feeding 750 ml 715 ml Other 60 ml Output Urine Total 600 ml 1500 ml Stool Total 400 ml 100 ml Laboratory Tests Test 06/02/17 03:20 White Blood Count 10.5 K/UL (4.8-10.8) Red Blood Count 3.48 M/UL (4.70-6.10) L Hemoglobin 9.8 G/DL (14.2-18.0) L Hematocrit 30.7 % (42.0-52.0) L Mean Corpuscular Volume 88 FL (80-99) Mean Corpuscular Hemoglobin 28.2 PG (27.0-31.0) Mean Corpuscular Hemoglobin Concent 32.0 G/DL (32.0-36.0) Red Cell Distribution Width 17.7 % (11.6-14.8) H Platelet Count 347 K/UL (150-450) Mean Platelet Volume 7.8 FL (6.5-10.1) Neutrophils (%) (Auto) 77.7 % (45.0-75.0) H Lymphocytes (%) (Auto) 11.6 % (20.0-45.0) L Monocytes (%) (Auto) 8.2 % (1.0-10.0) Eosinophils (%) (Auto) 2.0 % (0.0-3.0) Basophils (%) (Auto) 0.4 % (0.0-2.0) Sodium Level 141 mEQ/L (135-145) Potassium Level 3.3 mEQ/L (3.4-4.9) L Chloride Level 102 mEQ/L (98-107) Carbon Dioxide Level 24 mEQ/L (20-30) Anion Gap 15 (5-15) Blood Urea Nitrogen 43 mg/dL (7-23) H Creatinine 0.4 mg/dL (0.7-1.2) L Estimat Glomerular Filtration Rate > 60 mL/min (>60) Glucose Level 84 mg/dL (74-106) Calcium Level 8.3 mg/dL (8.6-10.2) L CELI FALCON Jun 02, 2017 18:18
[2017-06-03] MEDS: Morphine Sulfate 4mg/ml Inj IVP PRN (03:12)
[2017-06-03 03:56] VITALS: BP 119/74
[2017-06-03 08:00] VITALS: BP 118/75
[2017-06-03] MEDS: Ascorbic Acid 500mg tab GT SCH (09:29)
[2017-06-03] MEDS: levETIRAcetam 500mg/5ml Liquid GT SCH (09:29)
[2017-06-03] MEDS: Spironolactone 25mg tab GT SCH (09:29)
[2017-06-03] MEDS: Dakin's 0.25% (Half Strength) 16oz TOPIC SCH (09:30)
[2017-06-03] MEDS: Heparin 5000 units/ml inj SUBQ SCH (09:31)
[2017-06-03 12:00] VITALS: BP 102/65
--- NOTE | 2017-06-03 12:38 | Pulmonology Progress Note ---
Assessment/Plan Problems: (1) Acute on chronic respiratory failure (2) Anemia (3) Right pulmonary infiltrate on CXR (4) Chronic respiratory acidosis (5) Feeding by G-tube (6) EF of 30 Respiratory: monitor respiratory rate Cardiac: start pressors, continue pressors Renal: check electrolytes Infectious Disease: check cultures Gastrointestinal: continue feedings/current rate Endocrine: monitor blood sugar, check TSH Hematologic: monitor H/H, transfuse if hgb<8.5 Neurologic: PRN Ativan, keep patient comfortable Prophylaxis: Protonix Notes Reviewed: [facility], renal Discussed with: nurses, consultants, porter sample case Subjective ROS Limited/Unobtainable: Yes Allergies: Coded Allergies: No Known Allergies (Unverified , 03/07/17) Objective Last 24 Hour Vital Signs Date Time Temp Pulse Resp B/P Pulse Ox O2 Delivery O2 Flow Rate FiO2 06/03/17 10:30 102 16 40 06/03/17 09:29 107 118/75 06/03/17 08:58 107 18 40 06/03/17 08:00 111 06/03/17 08:00 40 06/03/17 08:00 98.0 112 16 118/75 100 Mechanical Ventilator 40 06/03/17 06:52 109 16 40 06/03/17 05:30 91 20 40 06/03/17 04:00 107 06/03/17 04:00 40 06/03/17 03:56 97.2 105 19 119/74 100 Mechanical Ventilator 105 06/03/17 03:42 97.2 06/03/17 03:01 109 16 40 06/03/17 01:19 105 17 40 06/03/17 00:00 40 06/03/17 00:00 106 06/02/17 23:22 97.0 108 16 101/63 100 Mechanical Ventilator 108 06/02/17 23:07 104 16 40 06/02/17 21:29 99 20 95/68 100 Mechanical Ventilator 40 06/02/17 21:12 100 16 40 06/02/17 21:00 99 95/68 06/02/17 20:19 96.6 109 20 101/66 100 Room Air 109 06/02/17 20:00 40 06/02/17 19:20 103 16 40 06/02/17 17:26 104 16 40 06/02/17 16:00 97.2 108 22 135/65 100 Mechanical Ventilator 40 06/02/17 15:35 107 06/02/17 15:35 40 06/02/17 15:05 105 16 40 06/02/17 12:45 107 16 40 Intake and Output 06/02/17 06/03/17 19:00 07:00 Intake Total 425 ml Output Total 650 ml 2050 ml Balance -225 ml -2050 ml Intake Free Water 100 ml Tube Feeding 325 ml Output Urine Total 650 ml 1100 ml Stool Total 950 ml General Appearance: cachetic HEENT: normocephalic, atraumatic Respiratory/Chest: chest wall non-tender, lungs clear Cardiovascular: normal peripheral pulses, normal rate, no JVD Abdomen: soft, non tender, no organomegaly Extremities: no cyanosis, no clubbing Skin: no lesions Current Medications Medications (Trade) Dose Ordered Sig/Tameka Route PRN Reason Start Time Stop Time Status Last Admin Dose Admin Acetaminophen (Tylenol) 650 mg Q4H PRN ORAL Mild Pain/Temp > 100.5 05/27/17 09:00 06/26/17 08:59 05/31/17 08:52 Albuterol/ Ipratropium (DuoNeb 0.5-3(2.5)mg/3ml) 3 ml Q4H PRN HHN Shortness of Breath 06/01/17 09:30 06/06/17 09:29 Ascorbic Acid (Vitamin C) 500 mg DAILY GT 05/26/17 09:00 06/25/17 08:59 06/03/17 09:29 Carvedilol (Coreg) 3.125 mg Q12HR GT 05/29/17 09:00 06/24/17 20:59 06/03/17 09:29 Dextrose (Dextrose 50%) STAT PRN IV Hypoglycemia 05/25/17 16:00 06/24/17 15:59 Heparin Sodium (Porcine) (Heparin 5000 units/ml) 5,000 units EVERY 12 HOURS SUBQ 05/25/17 21:00 06/24/17 20:59 06/03/17 09:31 Levetiracetam (Keppra) 500 mg Q12HR GT 05/25/17 21:00 06/24/17 20:59 06/03/17 09:29 Loperamide HCl (Imodium) 2 mg Q6H PRN GT Diarrhea 05/29/17 11:30 06/28/17 11:29 06/01/17 04:12 Morphine Sulfate (Morphine Sulfate) 4 mg Q4H PRN IVP For Pain 05/31/17 06:45 06/07/17 06:44 06/03/17 03:12 Ondansetron HCl (Zofran) 4 mg Q6H PRN IVP Nausea & Vomiting 05/25/17 16:15 06/24/17 16:14 Polyethylene Glycol (Miralax) 17 gm DAILYPRN PRN GT Constipation 05/25/17 16:00 06/24/17 15:59 Sodium Hypochlorite (Dakin's Half Strength) 1 applic DAILY TOPIC 05/26/17 09:00 06/25/17 08:59 06/03/17 09:30 Spironolactone (Aldactone) 25 mg DAILY GT 05/26/17 09:00 06/25/17 08:59 06/03/17 09:29 ODETTE SMILEY Jun 03, 2017 12:38
--- NOTE | 2017-06-03 12:41 | Infectious Diseases Prog Note ---
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 CT of C/A/P : No evidence of abscess , Pulmonary bibasal parenchymal consolidation // Low grade fever - resolved Severe anemia SP PRBCs Sinus tachycardia Chronic VDRF SP trach, PEG h/o cardiac arrest, anoxic encephalopathy Cardiomyopathy SP defibrillator placement Paroxysmal atrial fibrillation Cachexia / severe protein-calorie malnutrition [place] resident MDRO colonized NKDA DNR/I PLAN: monitor pt off of AB rx ( 05/27 SP Tygacil and Colistin d# / , add Merrem d# ) ( 05/15 SP IV vancomycin, Zosyn d# 5 ) ( SP Merrem and Colistin INH d# / ) ( 03/13 SP vancomycin and Zosyn d# 5 ) Monitor CBC, temperatures Monitor CMP Monitor CXR vent support, trach care, aspiration precautions wound care transfuse prn Subjective Constitutional: Denies: anorexia, chills, drenching sweats, fatigue, fever, no symptoms, other Allergies: Coded Allergies: No Known Allergies (Unverified , 03/07/17) Subjective comfortable Objective Vital Signs Last 24 Hour Vital Signs Date Time Temp Pulse Resp B/P Pulse Ox O2 Delivery O2 Flow Rate FiO2 06/03/17 10:30 102 16 40 06/03/17 09:29 107 118/75 06/03/17 08:58 107 18 40 06/03/17 08:00 111 06/03/17 08:00 40 06/03/17 08:00 98.0 112 16 118/75 100 Mechanical Ventilator 40 06/03/17 06:52 109 16 40 06/03/17 05:30 91 20 40 06/03/17 04:00 107 06/03/17 04:00 40 06/03/17 03:56 97.2 105 19 119/74 100 Mechanical Ventilator 105 06/03/17 03:42 97.2 06/03/17 03:01 109 16 40 06/03/17 01:19 105 17 40 06/03/17 00:00 40 06/03/17 00:00 106 06/02/17 23:22 97.0 108 16 101/63 100 Mechanical Ventilator 108 06/02/17 23:07 104 16 40 06/02/17 21:29 99 20 95/68 100 Mechanical Ventilator 40 06/02/17 21:12 100 16 40 06/02/17 21:00 99 95/68 06/02/17 20:19 96.6 109 20 101/66 100 Room Air 109 06/02/17 20:00 40 06/02/17 19:20 103 16 40 06/02/17 17:26 104 16 40 06/02/17 16:00 97.2 108 22 135/65 100 Mechanical Ventilator 40 06/02/17 15:35 107 06/02/17 15:35 40 06/02/17 15:05 105 16 40 06/02/17 12:45 107 16 40 Height (Feet): 5 Height (Inches): 7.00 Weight (Pounds): 126 HEENT: anicteric Respiratory/Chest: no respiratory distress Cardiovascular: regular rhythm Abdomen: no organomegaly Current Medications Medications (Trade) Dose Ordered Sig/Tameka Route PRN Reason Start Time Stop Time Status Last Admin Dose Admin Acetaminophen (Tylenol) 650 mg Q4H PRN ORAL Mild Pain/Temp > 100.5 05/27/17 09:00 06/26/17 08:59 05/31/17 08:52 Albuterol/ Ipratropium (DuoNeb 0.5-3(2.5)mg/3ml) 3 ml Q4H PRN HHN Shortness of Breath 06/01/17 09:30 06/06/17 09:29 Ascorbic Acid (Vitamin C) 500 mg DAILY GT 05/26/17 09:00 06/25/17 08:59 06/03/17 09:29 Carvedilol (Coreg) 3.125 mg Q12HR GT 05/29/17 09:00 06/24/17 20:59 06/03/17 09:29 Dextrose (Dextrose 50%) STAT PRN IV Hypoglycemia 05/25/17 16:00 06/24/17 15:59 Heparin Sodium (Porcine) (Heparin 5000 units/ml) 5,000 units EVERY 12 HOURS SUBQ 05/25/17 21:00 06/24/17 20:59 06/03/17 09:31 Levetiracetam (Keppra) 500 mg Q12HR GT 05/25/17 21:00 06/24/17 20:59 06/03/17 09:29 Loperamide HCl (Imodium) 2 mg Q6H PRN GT Diarrhea 05/29/17 11:30 06/28/17 11:29 06/01/17 04:12 Morphine Sulfate (Morphine Sulfate) 4 mg Q4H PRN IVP For Pain 05/31/17 06:45 06/07/17 06:44 06/03/17 03:12 Ondansetron HCl (Zofran) 4 mg Q6H PRN IVP Nausea & Vomiting 05/25/17 16:15 06/24/17 16:14 Polyethylene Glycol (Miralax) 17 gm DAILYPRN PRN GT Constipation 05/25/17 16:00 06/24/17 15:59 Sodium Hypochlorite (Dakin's Half Strength) 1 applic DAILY TOPIC 05/26/17 09:00 06/25/17 08:59 06/03/17 09:30 Spironolactone (Aldactone) 25 mg DAILY GT 05/26/17 09:00 06/25/17 08:59 06/03/17 09:29 MARCUS PA M.D. Jun 03, 2017 12:41
[2017-06-03 16:00] VITALS: BP 108/74
--- NOTE | 2017-06-03 16:24 | GI Progress Note ---
Assessment/Plan Problems: (1) Anemia ICD Codes: D64.9 - Anemia, unspecified SNOMED: 869460555 Qualifiers: Qualified Codes: D64.9 - Anemia, unspecified (2) EF of 30 (3) Feeding by G-tube ICD Codes: Z93.1 - Gastrostomy status SNOMED: 380766712, 057395768 (4) Transaminitis ICD Codes: R74.0 - Nonspecific elevation of levels of transaminase and lactic acid dehydrogenase [LDH] SNOMED: 922436372 (5) Leukocytosis ICD Codes: D72.829 - Elevated white blood cell count, unspecified SNOMED: 302793999, 113165294 Status: unchanged Status Narrative Discussed with Dr. Alex. Assessment/Plan occult blood stool >> negative x 2 cdiff negative stable H&H, transfuse prn GT replaced. GTFs per dietary, monitor residuals PPI for GI prophylaxis abx Imodium prn fu labs dc planning Subjective Subjective limited Objective Last 24 Hour Vital Signs Date Time Temp Pulse Resp B/P Pulse Ox O2 Delivery O2 Flow Rate FiO2 06/03/17 14:40 107 16 40 06/03/17 12:41 106 16 40 06/03/17 12:00 40 06/03/17 12:00 102 06/03/17 12:00 98.5 102 16 102/65 100 Mechanical Ventilator 40 06/03/17 10:30 102 16 40 06/03/17 09:29 107 118/75 06/03/17 08:58 107 18 40 06/03/17 08:00 111 06/03/17 08:00 40 06/03/17 08:00 98.0 112 16 118/75 100 Mechanical Ventilator 40 06/03/17 06:52 109 16 40 06/03/17 05:30 91 20 40 06/03/17 04:00 107 06/03/17 04:00 40 06/03/17 03:56 97.2 105 19 119/74 100 Mechanical Ventilator 105 06/03/17 03:42 97.2 06/03/17 03:01 109 16 40 06/03/17 01:19 105 17 40 06/03/17 00:00 40 06/03/17 00:00 106 06/02/17 23:22 97.0 108 16 101/63 100 Mechanical Ventilator 108 06/02/17 23:07 104 16 40 7/17/17 21:29 99 20 95/68 100 Mechanical Ventilator 40 06/02/17 21:12 100 16 40 06/02/17 21:00 99 95/68 06/02/17 20:19 96.6 109 20 101/66 100 Room Air 109 06/02/17 20:00 40 06/02/17 19:20 103 16 40 06/02/17 17:26 104 16 40 Intake and Output 06/02/17 06/03/17 19:00 07:00 Intake Total 425 ml Output Total 650 ml 2050 ml Balance -225 ml -2050 ml Intake Free Water 100 ml Tube Feeding 325 ml Output Urine Total 650 ml 1100 ml Stool Total 950 ml Height (Feet): 5 Height (Inches): 7.00 Weight (Pounds): 126 General Appearance: no apparent distress, alert, thin Cardiovascular: normal rate [facility]: site - c/d/i Lani Last N.P. Jun 03, 2017 16:24
[2017-06-03] MEDS ORDERED: Pneumococcal Vaccine 25mcg/0.5ml IM ONE (17:00)
--- NOTE | 2017-06-06 14:35 | Discharge Summary ---
Discharge Summary Hospital Course Date of Admission May 10, 2017 at 18:09 Date of Discharge Jun 03, 2017 at 18:33 Admitting Diagnosis Tachycardia, Anemia, Transfusion HPI Yamil Wells is a 57 year old male who was admitted on May 10, 2017 at 18:09 for Tachycardia,Anemia,Transfusion Hospital Course [id number] Discharge Discharge Disposition Patient was discharged to SNF/Subacute Facility(03) Discharge Diagnoses: Miriam Lazo NP Jun 06, 2017 14:35
== END 2017-06-03 18:33 | DRG 720 ==
LOC: EDBD 17:07 → EDBEDREQ 17:22 → EMR 18:08 → 2W 18:09 → EDBEDREQ 18:11 → 2W 05-11 02:25 → ICU 05-24 09:40 → 2W 05-25 15:27
PROC: 5A1955Z Respiratory Ventilation, Greater than 96 Consecutive Hours (ICD-10-PCS; principal; 2017-05-10)
PROC: 0D20XUZ Change Feeding Device in Upper Intestinal Tract, External Approach (ICD-10-PCS; 2017-05-11)
DX: A41.9 Sepsis, unspecified organism (principal); J96.20 Acute and chronic respiratory failure, unspecified whether with hypoxia or hypercapnia; E43 Unspecified severe protein-calorie malnutrition; Z99.11 Dependence on respirator [ventilator] status; L89.154 Pressure ulcer of sacral region, stage 4; G93.1 Anoxic brain damage, not elsewhere classified; E87.0 Hyperosmolality and hypernatremia; Z93.0 Tracheostomy status; D64.9 Anemia, unspecified; Z95.810 Presence of automatic (implantable) cardiac defibrillator; I48.0 Paroxysmal atrial fibrillation; J95.851 Ventilator associated pneumonia; I25.5 Ischemic cardiomyopathy; I11.0 Hypertensive heart disease with heart failure; I50.9 Heart failure, unspecified; Z86.74 Personal history of sudden cardiac arrest; K94.23 Gastrostomy malfunction; M86.9 Osteomyelitis, unspecified; R13.10 Dysphagia, unspecified; E83.42 Hypomagnesemia; R19.7 Diarrhea, unspecified; R74.0 Nonspecific elevation of levels of transaminase and lactic acid dehydrogenase [LDH]; J98.11 Atelectasis; Z66 Do not resuscitate; Z51.5 Encounter for palliative care
CPT/HCPCS: 36415; 36600; 71010; 71260; 74177; 80048; 80053; 80069; 80202; 82270; 82550; 82553; 82803; 82962; 83540; 83550; 83735; 83880; 84100; 84484; 85007; 85025; 86850; 86900; 86901; 86920; 87040; 87070; 87081; 87181; 87205; 87324; 90732; 93005; 93970; 94002; 94003; 94640; 94664

== ENCOUNTER 2017-06-12 12:32 | Inpatient (IN) | payer OTHER ==
[2017-06-12] VITALS (30 sets, daily range): BP systolic 73–102; BP diastolic 26–86
[~2017-06-12] VITALS: Ht 170.2 cm; Wt 51.7 kg
[~2017-06-12 12:32] MED LIST changes: +ALBUTEROL2.5 MG/0.1 IH; +ALDACTONE25 MG GT; +CEFEPIME-D2 GM/50 ML IVPB; +CLONIDINE HCL0.1 MG PO; +IMODIUM2 MG/10 ML GT; +KEPPRA LIQ100 MG/1 M GT; +LORAZEPAM1 MG GT; +MACRODANTIN50 MG GT; +PREVACID30 MG GT; -Piperacillin/Tazobactam 3.375 GM in NS 110 ML IVPB SCH; +TRAMADOL HCL50 MG GT; +ZOFRAN4 M3 GT
[2017-06-12] MEDS ORDERED: Acetaminophen 650 MG SUPP RECTAL ONE (13:00)
[2017-06-12] MEDS ORDERED: NS 1000ml 1,600 ML IVLG ONE (13:00)
[2017-06-12 13:11] LABS: APPEARANCE,URINE SLIGHTLY CLOUDY; KETONES,URINE NEGATIVE (NEGATIVE); LEUKOCYTE ESTERASE ,URINE 2+ (NEGATIVE); NITRITE,URINE NEGATIVE (NEGATIVE); PH,URINE 5 (4.5-8.0); PROTEIN,URINE 3+ (NEGATIVE); UROBILINOGEN,URINE 1 MG/DL (0.0-1.0)
[2017-06-12 13:18] LABS: BASOPHILS % (AUTO) 0.4 % (0.0-2.0); EOSINOPHILS % (AUTO) 1.5 % (0.0-3.0); LYMPHOCYTES % (AUTO) 19.4 % (20.0-45.0); MEAN CORPUSCULAR HEMOGLOBIN 26.4 PG (27.0-31.0); MEAN CORPUSCULAR HGB CONC 28.8 G/DL (32.0-36.0); MEAN CORPUSCULAR VOLUME 92 FL (80-99); MEAN PLATELET VOLUME 7.8 FL (6.5-10.1); MONOCYTES % (AUTO) 6.3 % (1.0-10.0); NEUTROPHILS % (AUTO) 72.4 % (45.0-75.0); PLATELET COUNT 270 K/UL (150-450); RED BLOOD COUNT 3.61 M/UL (4.70-6.10); RED CELL DISTRIBUTION WIDTH 18.4 % (11.6-14.8)
[2017-06-12 13:22] LABS: BACTERIA,URINE FEW /HPF; RBC,URINE 60-80 /HPF (0 - 0); SQUAMOUS EPITHELIAL CELL,UR FEW /LPF (NONE/OCC)
[2017-06-12 13:23] LABS: INR 1.1 (0.9-1.1); PROTHROMBIN TIME 11.2 SEC (9.30-11.50)
[2017-06-12 13:23] LABS: CALCIUM OXALATE CRYSTALS,UR FEW /LPF
[2017-06-12] MEDS ORDERED: HEPARIN SO5000 UNIT2 SUBQ (13:28)
[2017-06-12 13:30] LABS: TROPONIN I < 0.30 ng/mL (<=0.30)
[2017-06-12] MEDS ORDERED: SPIRONOLACTONE25 MG GT (13:34)
[2017-06-12] MEDS ORDERED: MIRALAX17 G2 GT (13:34)
[2017-06-12 13:53] LABS: ABG ALLEN TEST POSITIVE; ABG BASE EXCESS 7.5
[2017-06-12 13:58] LABS: ALANINE AMINOTRANSFERASE 513 U/L (3-41); ALBUMIN/GLOBULIN RATIO 0.4 (1.0-2.7); AMYLASE 30 U/L (10-110); ANION GAP 10 (5-15); ASPARTATE AMINO TRANSFERASE 636 U/L (5-40); CARBON DIOXIDE 31 mEQ/L (20-30); CHLORIDE 130 mEQ/L (98-107); GLOMERULAR FILTRATION RATE > 60 mL/min (>60); HEMOLYSIS 8; LIPASE 17 U/L (< 60); POTASSIUM 5.2 mEQ/L (3.4-4.9); TOTAL PROTEIN 7.3 g/dL (6.6-8.7)
[2017-06-12 14:00] LABS: SODIUM 171 mEQ/L (135-145)
[2017-06-12 14:08] LABS: CKMB 1.7 ng/mL (< 6.7)
[2017-06-12] MEDS ORDERED: cefTRIAXone 2 GM in NS 110 ML IVPB ONE (14:30)
[2017-06-12] MEDS ORDERED: Miralax 17gm pkt ORAL PRN (14:30)
[2017-06-12] MEDS ORDERED: Morphine Sulfate 4mg/ml Inj IVP PRN (14:30)
[2017-06-12] MEDS ORDERED: DuoNeb 0.5-3(2.5)mg/3ml neb HHN PRN (14:30)
--- NOTE | 2017-06-12 15:43 | Emergency Room Report ---
History of Present Illness General Chief Complaint: Altered Level of Consciousness Source: Medical Record Present Illness HPI Patient presents emergency department today with acute altered mental status and hypotension. Patient is on a ventilator. No further history was available. Patient is nonverbal. History was obtained from patient's intermediate paperwork. Symptoms noted to be highly severe. No other modifying factors. No other associated signs and symptoms. No other complaints were noted. Allergies: Coded Allergies: No Known Allergies (Unverified , 03/07/17) Patient History Past Medical History: other - hep c anemia Past Surgical History: other - g-tube Social History Narrative stays at intermediate Reviewed Nursing Documentation: PMH: Agreed, PSxH: Agreed Nursing Documentation-PMH Hx Hypertension: Yes - HEP C, ANEMIA Hx Pacemaker: Yes Hx Diabetes: No Hx Cancer: No Hx Gastrointestinal Problems: Yes - GTUBE Hx Neurological Problems: Yes - ENCEPHALOPATHY Hx Cerebrovascular Accident: Yes Hx Seizures: Yes Review of Systems All Other Systems: limited Physical Exam Vital Signs Date Time Temp Pulse Resp B/P Pulse Ox O2 Delivery O2 Flow Rate FiO2 06/12/17 12:30 132 20 109/82 100 Mechanical Ventilator 06/12/17 12:38 40 06/12/17 13:00 102.6 Sp02 EP Interpretation: reviewed, normal General Appearance: moderate distress, cachetic Head: atraumatic Eyes: bilateral eye normal inspection ENT: dry mucus membranes Neck: supple Respiratory: normal inspection, lungs clear, normal breath sounds, no respiratory distress, no retraction, no wheezing Cardiovascular #1: tachycardia Gastrointestinal: non tender, soft Genitourinary: normal inspection Musculoskeletal: other - contractures Neurologic: other - lethargic unable to fully assess Psychiatric: other - lethargic Skin: pallor Procedures Critical Care Time Critical Care Time Patient had a critical medical condition which untreated could potentially result in life or limb threatening injury. Total critical care time excluding procedures was approximately 45 minutes. Central Line Central Line : Consent: Emergent Central Line Lumen: triple Maximal Sterile Barrier Tech: yes cap, yes mask, yes sterile gown, yes sterile gloves, yes large sterile sheet, yes hand hygiene, yes chlorhexidine prep Central Line Postion: femoral (R) Complications: none Central Line Post Position: sutured, good blood return Attempts: One Patient Tolerated: Well Complications: None Medical Decision Making Diagnostic Impression: Primary Impression: Altered level of consciousness Additional Impressions: Acute hypernatremia Dehydration Hypotension Qualified Codes: I95.9 - Hypotension, unspecified ER Course Patient presents emergency department today with acute altered mental status and hypotension. Differential diagnoses include sepsis, dehydration, hypovolemia just to name a few.Given the severity of the patient's presentation I felt this is a highly complex patient. This patient required extensive workup. Patient exam show evidence of severe dehydration. Patient's laboratory workup shows severe hypernatremia. Therefore patient require fluid boluses. Patient was given 2 and half liters of fluid boluses. Patient had blood cultures obtained and was started on antibiotics. Because of patient's persistent hypotension a central line was placed. Patient will be admitted to intensive care unit for further treatment. Labs Test 06/12/17 12:47 06/12/17 12:50 06/12/17 13:50 Urine Color Yellow Urine Appearance Slightly cloudy Urine pH 5 (4.5-8.0) Urine Specific [place] 1.015 (1.005-1.035) Urine Protein 3+ (NEGATIVE) Urine Glucose (UA) Negative (NEGATIVE) Urine Ketones Negative (NEGATIVE) Urine Occult Blood 5+ (NEGATIVE) Urine Nitrite Negative (NEGATIVE) Urine Bilirubin Negative (NEGATIVE) Urine Urobilinogen 1 MG/DL (0.0-1.0) Urine Leukocyte Esterase 2+ (NEGATIVE) Urine RBC 60-80 /HPF (0 - 0) Urine WBC 5-10 /HPF (0 - 0) Urine Squamous Epithelial Cells Few /LPF (NONE/OCC) Urine Calcium Oxalate Crystals Few /LPF (NONE) Urine Bacteria Few /HPF (NONE) Sodium Level 171 mEQ/L (135-145) Potassium Level 5.2 mEQ/L (3.4-4.9) Chloride Level 130 mEQ/L (98-107) Carbon Dioxide Level 31 mEQ/L (20-30) Anion Gap 10 (5-15) Blood Urea Nitrogen 73 mg/dL (7-23) Creatinine 1.0 mg/dL (0.7-1.2) Estimat Glomerular Filtration Rate > 60 mL/min (>60) Glucose Level 123 mg/dL (74-106) Lactic Acid Level 1.70 mmol/L (0.66-2.22) Calcium Level 9.0 mg/dL (8.6-10.2) Total Bilirubin 0.2 mg/dL (0.0-1.2) Aspartate Amino Transf (AST/SGOT) 636 U/L (5-40) Alanine Aminotransferase (ALT/SGPT) 513 U/L (3-41) Alkaline Phosphatase 360 U/L (40-129) Total Creatine Kinase 68 U/L (38-174) Creatine Kinase MB 1.7 ng/mL (< 6.7) Creatine Kinase MB Relative Index 2.5 Troponin I < 0.30 ng/mL (<=0.30) Pro-B-Type Natriuretic Peptide 2173 pg/mL (0-125) Total Protein 7.3 g/dL (6.6-8.7) Albumin 2.3 g/dL (3.5-5.2) Globulin 5.0 g/dL Albumin/Globulin Ratio 0.4 (1.0-2.7) Amylase Level 30 U/L (10-110) Lipase 17 U/L (< 60) White Blood Count 12.0 K/UL (4.8-10.8) Red Blood Count 3.61 M/UL (4.70-6.10) Hemoglobin 9.5 G/DL (14.2-18.0) Hematocrit 33.1 % (42.0-52.0) Mean Corpuscular Volume 92 FL (80-99) Mean Corpuscular Hemoglobin 26.4 PG (27.0-31.0) Mean Corpuscular Hemoglobin Concent 28.8 G/DL (32.0-36.0) Red Cell Distribution Width 18.4 % (11.6-14.8) Platelet Count 270 K/UL (150-450) Mean Platelet Volume 7.8 FL (6.5-10.1) Neutrophils (%) (Auto) 72.4 % (45.0-75.0) Lymphocytes (%) (Auto) 19.4 % (20.0-45.0) Monocytes (%) (Auto) 6.3 % (1.0-10.0) Eosinophils (%) (Auto) 1.5 % (0.0-3.0) Basophils (%) (Auto) 0.4 % (0.0-2.0) Prothrombin Time 11.2 SEC (9.30-11.50) Prothromb Time International Ratio 1.1 (0.9-1.1) Activated Partial Thromboplast Time 28 SEC (23-33) Arterial Blood pH 7.460 (7.350-7.450) Arterial Blood Partial Pressure CO2 45.0 mmHg (35.0-45.0) Arterial Blood Partial Pressure O2 117.8 mmHg (75.0-100.0) Arterial Blood HCO3 31.9 mmol/L (22.0-26.0) Arterial Blood Oxygen Saturation 97.9 % (92.0-98.0) Arterial Blood Base Excess 7.5 Son Test Positive EKG Diagnostic Results Rate: tachycardiac Rhythm: NSR ST Segments: no acute changes Rhythm Strip Diag. Results EP Interpretation: yes Rate: 110 Rhythm: no PVC's, no ectopy, other - tachycardia Chest X-Ray Diagnostic Results Chest X-Ray Diagnostic Results : Chest X-Ray Ordered: Yes # of Views/Limited/Complete: 1 View Indication: Shortness of Breath EP Interpretation: No Interpretation: no consolidation, other - pacemaker Last Vital Signs Date Time Temp Pulse Resp B/P Pulse Ox O2 Delivery O2 Flow Rate FiO2 06/12/17 14:58 113 18 40 06/12/17 14:46 81/55 100 Mechanical Ventilator 06/12/17 13:00 102.6 Status: improved Disposition: ADMITTED INPATIENT Condition: Critical Referrals: ODETTE SMILEY (PCP) ISIS DELATORRE M.D. Jun 12, 2017 15:43
[2017-06-12] MEDS ORDERED: Levophed 4mg/4mL Inj IV ONE (15:58)
[2017-06-12] MEDS ORDERED: Amikacin Rx to dose MISC PRN (16:15)
[2017-06-12] MEDS ORDERED: Ertapenem 1 GM in NS 55 ML IV ONE (19:00)
[2017-06-12] MEDS ORDERED: Amikacin 800 MG in NS 110 ML IV SCH (19:00)
[2017-06-12] MEDS: Vancomycin 750 MG in D5W 275 ML IVPB SCH (19:08)
[2017-06-12] MEDS: levETIRAcetam 500mg/5ml Liquid GT SCH (21:45)
[2017-06-12] MEDS: Heparin 5000 units/ml inj SUBQ SCH (21:49)
--- NOTE | 2017-06-12 22:01 | History and Physical ---
History of Present Illness General Date patient seen: Jun 12, 2017 Reason for Hospitalization: Altered Level of Consciousness Present Illness HPI 57 year old male with hx of Hypoxemic encephalopathy, trach/peg/ bed bound, brought in to [facility] emergency department today with acute altered mental status and hypotension. No further history was available. Patient is nonverbal. History was obtained from patient's senior living paperwork. Pt was hypotensive and with very high Na and admitted to ICU for further care. Allergies: Coded Allergies: No Known Allergies (Unverified , 03/07/17) Medication History Scheduled Amiodarone Hcl (Amiodarone Hcl), 200 MG GT DAILY, (Reported) Ascorbic Acid* (Vitamin C*), 500 MG ORAL DAILY, (Reported) Aspirin* (Aspir 81*), 81 MG GT DAILY, (Reported) Carvedilol (Coreg), 3.125 MG GT Q12HR Carvedilol* (Carvedilol*), 3.125 MG GT BID, (Reported) Cefepime Hcl/D5w (Cefepime-Dextrose 2 Gm/50 Ml), 2 GM IVPB EVERY 12 HOURS, ( Reported) Clonidine Hcl (Clonidine Hcl), 0.1 MG PO Q6HR, (Reported) Colistimethate Sodium (Colistin), 150 MG INH Q12HR@10,22 Docusate Sodium* (Docusate Sodium*), 100 MG ORAL TWICE A DAY, (Reported) Furosemide* (Lasix*), 60 MG GT DAILY, (Reported) Heparin Sod (Porcine) (Heparin Sodium*), 5,000 UNITS SUBQ EVERY 12 HOURS, ( Reported) Lansoprazole* (Prevacid*), 30 MG GT DAILY, (Reported) Levetiracetam (Keppra), 500 MG GT Q12HR Levetiracetam* (Levetiracetam*), 500 MG GT BID, (Reported) Lisinopril* (Lisinopril*), 10 MG ORAL DAILY, (Reported) Lorazepam* (Lorazepam*), 1 MG GT THREE TIMES A DAY, (Reported) Meropenem (Merrem), 1 GM IV EVERY 8 HOURS Multivitamin Liquid* (Multi-Delyn*), 5 ML GT DAILY, (Reported) Nitrofurantoin Macrocrystal (Macrodantin*), 50 MG GT FOUR TIMES A DAY, (Reported ) Omeprazole (Omeprazole), 40 MG ORAL DAILY, (Reported) Polyethylene Glycol 3350* (Miralax*), 17 GM GT DAILY, (Reported) Spironolactone (Aldactone), 25 MG GT DAILY Spironolactone* (Aldactone*), 25 MG ORAL DAILY, (Reported) Spironolactone* (Aldactone*), 25 MG GT DAILY, (Reported) Vancomycin Hcl/D5w (Vancomycin-D5w 1 G/250 Ml), 1 GM IVPB Q12HR, (Reported) Warfarin Sod (Coumadin*), 7.5 MG GT DAILY, (Reported) Zinc Sulfate (Zinc Sulfate*), 220 MG ORAL DAILY, (Reported) Scheduled PRN Hydrocodone Bit/Acetaminophen 5-325* ([place] 5-325*), 1 TAB ORAL Q4H PRN for For Pain, (Reported) Loperamide HCl (Loperamide), 2 MG GT Q6H PRN Ondansetron* (Zofran*), 4 MG GT Q6H PRN for Nausea & Vomiting, (Reported) Tramadol Hcl* (Ultram*), 50 MG GT Q6H PRN for For Pain, (Reported) Miscellaneous Medications Albuterol Sulfate (Albuterol Sulfate), 2.5 MG IH, (Reported) Lactulose (Lactulose*), 30 ML ORAL, (Reported) Patient History Healthcare decision maker Resuscitation status Advanced Directive on File Past Medical/Surgical History Past Medical/Surgical History: (1) EF of 30 (2) Feeding by G-tube (3) Chronic respiratory acidosis Review of Systems Eye: Reports: no symptoms All Other Systems: negative except mentioned in HPI Physical Exam General Appearance: cachetic Lines, tubes and drains: peripheral HEENT: normocephalic, atraumatic Neck: non-tender, normal alignment Respiratory/Chest: chest wall non-tender, rhonchi - left, rhonchi - right Breasts: no masses Cardiovascular/Chest: normal peripheral pulses Abdomen: normal bowel sounds, non tender Extremities: normal range of motion, non-tender Skin Exam: normal pigmentation 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: 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 print operator 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 normal Last 24 Hour Vital Signs Date Time Temp Pulse Resp B/P Pulse Ox O2 Delivery O2 Flow Rate FiO2 06/12/17 21:14 103 17 30 06/12/17 21:00 103 90/42 06/12/17 18:35 97 16 30 06/12/17 18:32 98.2 94 16 93/61 100 Mechanical Ventilator 30 06/12/17 18:19 98.2 94 16 93/61 100 Mechanical Ventilator 30 06/12/17 18:18 93/61 06/12/17 18:13 97/61 06/12/17 18:13 97/61 06/12/17 18:08 74/51 06/12/17 18:08 74/51 06/12/17 18:03 73/45 06/12/17 18:03 73/45 06/12/17 17:58 78/44 06/12/17 17:53 78/44 06/12/17 17:15 105 16 30 06/12/17 16:31 98.2 103 24 98/58 100 Mechanical Ventilator 40 06/12/17 16:15 98.2 106 24 86/54 100 Mechanical Ventilator 40 06/12/17 16:00 98.2 107 25 102/86 100 Mechanical Ventilator 40 06/12/17 15:30 98.2 109 17 89/57 100 Mechanical Ventilator 40 06/12/17 14:58 113 18 40 06/12/17 14:46 115 16 81/55 100 Mechanical Ventilator 40 06/12/17 13:00 102.6 131 17 79/26 100 Mechanical Ventilator 40 06/12/17 13:00 40 06/12/17 12:38 134 18 40 06/12/17 12:30 132 20 109/82 100 Mechanical Ventilator Laboratory Tests Test 06/12/17 12:47 06/12/17 12:50 06/12/17 13:50 Urine Color Yellow Urine Appearance Slightly cloudy Urine pH 5 (4.5-8.0) Urine Specific [place] 1.015 (1.005-1.035) Urine Protein 3+ (NEGATIVE) H Urine Glucose (UA) Negative (NEGATIVE) Urine Ketones Negative (NEGATIVE) Urine Occult Blood 5+ (NEGATIVE) H Urine Nitrite Negative (NEGATIVE) Urine Bilirubin Negative (NEGATIVE) Urine Urobilinogen 1 MG/DL (0.0-1.0) H Urine Leukocyte Esterase 2+ (NEGATIVE) H Urine RBC 60-80 /HPF (0 - 0) H Urine WBC 5-10 /HPF (0 - 0) H Urine Squamous Epithelial Cells Few /LPF (NONE/OCC) Urine Calcium Oxalate Crystals Few /LPF (NONE) Urine Bacteria Few /HPF (NONE) Sodium Level 171 mEQ/L (135-145) *H Potassium Level 5.2 mEQ/L (3.4-4.9) H Chloride Level 130 mEQ/L (98-107) H Carbon Dioxide Level 31 mEQ/L (20-30) H Anion Gap 10 (5-15) Blood Urea Nitrogen 73 mg/dL (7-23) H Creatinine 1.0 mg/dL (0.7-1.2) Estimat Glomerular Filtration Rate > 60 mL/min (>60) Glucose Level 123 mg/dL (74-106) H Lactic Acid Level 1.70 mmol/L (0.66-2.22) Calcium Level 9.0 mg/dL (8.6-10.2) Total Bilirubin 0.2 mg/dL (0.0-1.2) Aspartate Amino Transf (AST/SGOT) 636 U/L (5-40) H Alanine Aminotransferase (ALT/SGPT) 513 U/L (3-41) H Alkaline Phosphatase 360 U/L (40-129) H Total Creatine Kinase 68 U/L (38-174) Creatine Kinase MB 1.7 ng/mL (< 6.7) Creatine Kinase MB Relative Index 2.5 Troponin I < 0.30 ng/mL (<=0.30) Pro-B-Type Natriuretic Peptide 2173 pg/mL (0-125) H Total Protein 7.3 g/dL (6.6-8.7) Albumin 2.3 g/dL (3.5-5.2) L Globulin 5.0 g/dL Albumin/Globulin Ratio 0.4 (1.0-2.7) L Amylase Level 30 U/L (10-110) Lipase 17 U/L (< 60) White Blood Count 12.0 K/UL (4.8-10.8) H Red Blood Count 3.61 M/UL (4.70-6.10) L Hemoglobin 9.5 G/DL (14.2-18.0) L Hematocrit 33.1 % (42.0-52.0) L Mean Corpuscular Volume 92 FL (80-99) Mean Corpuscular Hemoglobin 26.4 PG (27.0-31.0) L Mean Corpuscular Hemoglobin Concent 28.8 G/DL (32.0-36.0) L Red Cell Distribution Width 18.4 % (11.6-14.8) H Platelet Count 270 K/UL (150-450) Mean Platelet Volume 7.8 FL (6.5-10.1) Neutrophils (%) (Auto) 72.4 % (45.0-75.0) Lymphocytes (%) (Auto) 19.4 % (20.0-45.0) L Monocytes (%) (Auto) 6.3 % (1.0-10.0) Eosinophils (%) (Auto) 1.5 % (0.0-3.0) Basophils (%) (Auto) 0.4 % (0.0-2.0) Prothrombin Time 11.2 SEC (9.30-11.50) Prothromb Time International Ratio 1.1 (0.9-1.1) Activated Partial Thromboplast Time 28 SEC (23-33) Arterial Blood pH 7.460 (7.350-7.450) Arterial Blood Partial Pressure CO2 45.0 mmHg (35.0-45.0) Arterial Blood Partial Pressure O2 117.8 mmHg (75.0-100.0) H Arterial Blood HCO3 31.9 mmol/L (22.0-26.0) H Arterial Blood Oxygen Saturation 97.9 % (92.0-98.0) Arterial Blood Base Excess 7.5 Son Test Positive Height (Feet): 5 Height (Inches): 7.00 Weight (Pounds): 120 Medications Current Medications Medications (Trade) Dose Ordered Sig/Tameka Route PRN Reason Start Time Stop Time Status Last Admin Dose Admin Acetaminophen (Tylenol) 650 mg Q4H PRN ORAL fever 06/12/17 14:30 07/12/17 14:29 Albuterol/ Ipratropium 3 ml 3 ml Q4H PRN HHN Shortness of Breath 06/12/17 14:30 06/17/17 14:29 Amikacin Protocol (Amikacin pharmacy to dose) 1 ea DAILY PRN MISC PRN RX PROTOCOL 06/12/17 16:15 07/12/17 16:14 Amikacin Sulfate 800 mg/Sodium Chloride 113.2 ml @ 113.2 mls/ hr Q24H IV 06/12/17 19:00 06/19/17 18:59 06/12/17 19:09 Amiodarone HCl (Cordarone) 200 mg DAILY GT 06/13/17 09:00 07/13/17 08:59 Carvedilol (Coreg) 3.125 mg Q12HR GT 06/12/17 21:00 07/12/17 20:59 Heparin Sodium (Porcine) (Heparin 5000 units/ml) 5,000 units EVERY 12 HOURS SUBQ 06/12/17 21:00 07/12/17 20:59 06/12/17 21:49 Levetiracetam 500 mg 500 mg Q12HR GT 06/12/17 21:00 07/12/17 20:59 06/12/17 21:45 Lorazepam 2 mg 2 mg Q2H PRN IV For Anxiety 06/12/17 14:30 06/19/17 14:29 Morphine Sulfate (Morphine Sulfate) 4 mg Q4H PRN IVP Severe Pain (Pain Scale 7-10) 06/12/17 14:30 06/19/17 14:29 Norepinephrine Bitartrate/ Dextrose (Levophed/D5W) 254 ml @ 0 mls/hr Q24H IV 06/12/17 15:45 07/12/17 15:44 06/12/17 17:58 Ondansetron HCl (Zofran) 4 mg Q6H PRN IVP Nausea & Vomiting 06/12/17 14:30 07/12/17 14:29 Pantoprazole (Protonix) 40 mg DAILY IVP 06/13/17 09:00 07/13/17 08:59 Polyethylene Glycol (Miralax) 17 gm DAILYPRN PRN ORAL Constipation 06/12/17 14:30 07/12/17 14:29 Sodium Chloride (Sodium Chloride 1000ml bag) 1,000 ml @ 100 mls/hr Q10H IVLG 06/12/17 16:30 07/12/17 16:29 06/12/17 17:27 Vancomycin HCl (Vanco rx to dose) 1 ea DAILY PRN MISC PRN RX PROTOCOL 06/12/17 16:15 07/12/17 16:14 Vancomycin HCl/ Dextrose (Vancomycin/D5W) 275 ml @ 183.3 mls/ hr Q8HR@0100,0900,1700 IVPB 06/12/17 17:00 8/3/17 16:59 06/12/17 19:08 Assessment/Plan Problem List: (1) Acute on chronic respiratory failure ICD Codes: J96.20 - Acute and chronic respiratory failure, unspecified whether with hypoxia or hypercapnia SNOMED: 14020493, 45766243 (2) Septic shock ICD Codes: A41.9 - Sepsis, unspecified organism; R65.21 - Severe sepsis with septic shock SNOMED: 88709392 (3) Acute hypernatremia ICD Codes: E87.0 - Hyperosmolality and hypernatremia SNOMED: 5778513 (4) Feeding by G-tube ICD Codes: Z93.1 - Gastrostomy status SNOMED: 522749980, 158275202 (5) EF of 30 Respiratory: monitor respiratory rate, adjust FIO2, CXR Cardiac: continue pressors, continue to monitor HR/BP Renal: F/U I&O, keep IV fluid, check electrolytes Infectious Disease: check cultures Gastrointestinal: hold feedings Endocrine: monitor blood sugar Hematologic: monitor H/H, transfuse if hgb<8.5 Neurologic: PRN Ativan, PRN Morphine, keep patient comfortable Affect: PRN ativan Time Spent (Minutes): 40 Discussed with: nurses ODETTE SMILEY Jun 12, 2017 22:01
[2017-06-13] VITALS (38 sets, daily range): BP systolic 83–151; BP diastolic 51–95
[2017-06-13] MEDS: Vancomycin 750 MG in D5W 275 ML IVPB SCH ×2 (01:15→09:18)
[2017-06-13 07:59] LABS: BASOPHILS % (AUTO) 0.3 % (0.0-2.0); EOSINOPHILS % (AUTO) 3.2 % (0.0-3.0); LYMPHOCYTES % (AUTO) 16.6 % (20.0-45.0); MEAN CORPUSCULAR HEMOGLOBIN 27.1 PG (27.0-31.0); MEAN CORPUSCULAR HGB CONC 29.9 G/DL (32.0-36.0); MEAN CORPUSCULAR VOLUME 91 FL (80-99); MEAN PLATELET VOLUME 7.9 FL (6.5-10.1); MONOCYTES % (AUTO) 6.4 % (1.0-10.0); NEUTROPHILS % (AUTO) 73.5 % (45.0-75.0); PLATELET COUNT 271 K/UL (150-450); RED BLOOD COUNT 3.08 M/UL (4.70-6.10); RED CELL DISTRIBUTION WIDTH 17.7 % (11.6-14.8); WHITE BLOOD COUNT 10.4 K/UL (4.8-10.8)
[2017-06-13] MEDS ORDERED: Amikacin 800 MG in NS 110 ML IV SCH ×2 (08:00→14:30)
[2017-06-13 08:07] LABS: ALANINE AMINOTRANSFERASE 426 U/L (3-41); ALBUMIN/GLOBULIN RATIO 0.5 (1.0-2.7); ANION GAP 10 (5-15); ASPARTATE AMINO TRANSFERASE 322 U/L (5-40); BILIRUBIN,DIRECT 0.1 mg/dL (0.1-0.3); CALCIUM 8.1 mg/dL (8.6-10.2); CARBON DIOXIDE 27 mEQ/L (20-30); CHLORIDE 132 mEQ/L (98-107); CREATININE 0.7 mg/dL (0.7-1.2); GLOMERULAR FILTRATION RATE > 60 mL/min (>60); POTASSIUM 3.8 mEQ/L (3.4-4.9); TOTAL PROTEIN 6.4 g/dL (6.6-8.7)
[2017-06-13 08:11] LABS: SODIUM 169 mEQ/L (135-145)
--- NOTE | 2017-06-13 08:33 | Diagnostic Imaging Report ---
Indications: Shortness of breath Technique: Portable AP chest Findings: Comparison: 06/02/17 Cardiac silhouette remains normal in size. Pulmonary vasculature remains within normal limits. Lungs and pleura remain clear. Mild calcification of the aortic arch, tracheostomy, pacemaker again noted.. IMPRESSION: No evidence of acute disease, unchanged Stable chronic changes as described
[2017-06-13] MEDS ORDERED: Dyna-Hex 2% Top Sol 8oz TOPIC SCH (09:00)
[2017-06-13] MEDS ORDERED: Pantoprazole Inj IVP SCH (09:00)
[2017-06-13] MEDS: levETIRAcetam 500mg/5ml Liquid GT SCH ×2 (09:18→21:18)
[2017-06-13] MEDS: Amiodarone 200mg tab GT SCH (09:18)
[2017-06-13] MEDS: Heparin 5000 units/ml inj SUBQ SCH ×2 (09:21→21:19)
--- NOTE | 2017-06-13 10:05 | Consultation ---
Consult Note Consult Note ID CONSULT: Dict# [id number] Assessment/Plan ASSESSMENT: 57 y/o male with: // Septic shock / pressors ?source - cultures pending, lactate WNL - CT C/A/P 05/17: No evidence of abscess , Pulmonary bibasal parenchymal consolidation // Stage IV sacral decubitus, not grossly infected - surveillance WCx pending - h/o polymicrobial MDR ( KPC and ACB, strep, CONS ) colonization // Chronic sacrococcygeal osteomyelitis // Elevated LFTs / HCV Ab+ improved - CT A/P 05/17: Liver, gallbladder no obvious acute abnormality. // Diarrhea r/o C.difficile - toxin pending // h/o recurrent HCAP / VAP - SCx MDR - ACB , KPC SP Rx. No evidence of recurrence - CXR 06/12: No evidence of acute disease, unchanged. Stable chronic changes - h/o Provid a+ XDR PSA, MDR-ACB, KPC // Leukocytosis - resolved // Fever - resolved Acute on chronic encephalopathy ?septic vs metabolic - h/o cardiac arrest, anoxic encephalopathy Severe hypernatremia Cachexia r/o occult malignancy, HIV, TB Acute on chronic anemia Sinus tachycardia Chronic VDRF SP trach, PEG Cardiomyopathy SP defibrillator placement Paroxysmal atrial fibrillation [place] resident MDRO colonized NKDA Full Code ( previous DNR ) PLAN: continue empiric IV vancomcycin, amikacin d# 2. Add empiric flagyl d# 1 ( 06/12 SP invanz x1 ) ( 05/27 SP Tygacil and Colistin d# , Merrem d# ) ( 05/15 SP IV vancomycin, Zosyn d# 5 ) ( SP Merrem and Colistin INH d# ) ( 03/13 SP vancomycin and Zosyn d# 5 ) check tumor markers, HIV, PPD, abdo US f/u cultures, C.diff f/u TTE Monitor CBC, temperatures Monitor CMP Monitor CXR vent support, trach care, aspiration precautions wound care pressor support, wean as tolerated Thanks! Will follow ROXANNE BELLO Jun 13, 2017 10:05
[2017-06-13 10:07] LABS: ABG ALLEN TEST POSITIVE; ABG BASE EXCESS 2.5
[2017-06-13] MEDS: metroNIDAZOLE 500mg tab PEG SCH ×3 (10:50→21:37)
[2017-06-13] MEDS ORDERED: PPD Tuberculin Skin Test 5TU IDERMAL ONE (11:00)
--- NOTE | 2017-06-13 11:09 | Consultation ---
Consult Note Consult Note asked to eval for low BP and high Na Patient presents emergency department today with acute altered mental status and hypotension. Patient is on a ventilator. No further history was available. Patient is nonverbal. History was obtained from [facility]'s [facility] paperwork. Symptoms noted to be highly severe. No other modifying factors. No other associated signs and symptoms. No other complaints were noted. Past Medical History: other - hep c anemia Past Surgical History: other - g-tube Social History [facility]ative [facility] Hx Hypertension: Yes - HEP C, ANEMIA Hx Pacemaker: Yes Hx Gastrointestinal Problems: Yes - GTUBE Hx Neurological Problems: Yes - ENCEPHALOPATHY Hx Cerebrovascular Accident: Yes Hx Seizures: Yes Examined- data reviewed Assessment/Plan (1) Acute on chronic respiratory failure (2) Septic shock, LOW BP (3) Acute hypernatremia, Free water deficit (4) Feeding by G-tube (5) EF of 30 (6) High LFTs Plan; D5w Pressors Solumedrol Antibiotics Albumin bollous Monitor renal parameters- Prone to acute renal failure due to antibiotics CRICKET MITCHELL Jun 13, 2017 11:09
--- NOTE | 2017-06-13 11:12 | Pulmonolgy Critical Care Note ---
Critical Care - Asmt/Plan Problems: (1) Acute on chronic respiratory failure (2) Septic shock (3) Chronic respiratory acidosis (4) Altered level of consciousness (5) EF of 30 (6) Feeding by G-tube Respiratory: monitor respiratory rate, adjust FIO2, CXR Cardiac: continue pressors Renal: F/U I&O, keep IV fluid Infectious Disease: check cultures Gastrointestinal: continue feedings/current rate Endocrine: monitor blood sugar, check HgA1C Hematologic: monitor H/H Neurologic: PRN Morphine Affect: PRN ativan Prophylaxis: Protonix Notes Reviewed: renal Discussed with: nurses, consultants Critical Care - Objective Last 24 Hour Vital Signs Date Time Temp Pulse Resp B/P Pulse Ox O2 Delivery O2 Flow Rate FiO2 06/13/17 10:30 115 17 100/61 100 Mechanical Ventilator 30 06/13/17 10:00 117 16 90/58 100 Mechanical Ventilator 30 06/13/17 09:30 117 16 95/60 100 Mechanical Ventilator 30 06/13/17 09:00 119 18 88/58 100 Mechanical Ventilator 30 06/13/17 09:00 119 91/61 06/13/17 08:41 116 18 30 06/13/17 08:30 120 18 99/82 100 Mechanical Ventilator 30 06/13/17 08:00 30 06/13/17 08:00 114 06/13/17 08:00 98.5 117 18 122/95 100 Mechanical Ventilator 30 06/13/17 07:30 115 18 103/66 100 Mechanical Ventilator 30 06/13/17 07:00 117 19 96/67 100 Mechanical Ventilator 30 06/13/17 06:44 118 17 30 06/13/17 06:30 121 19 83/65 100 Mechanical Ventilator 30 06/13/17 06:00 116 19 151/86 100 Mechanical Ventilator 30 06/13/17 06:00 30 06/13/17 05:30 115 19 119/72 100 Mechanical Ventilator 30 06/13/17 05:25 108 16 30 06/13/17 05:00 108 16 94/56 100 Mechanical Ventilator 30 06/13/17 04:30 106 17 100/64 100 Mechanical Ventilator 30 06/13/17 04:00 107 06/13/17 04:00 99.6 106 17 101/64 100 Mechanical Ventilator 30 06/13/17 03:30 107 16 108/72 100 Mechanical Ventilator 30 06/13/17 03:15 104 16 30 06/13/17 03:00 105 16 96/62 100 Mechanical Ventilator 30 06/13/17 02:30 104 16 91/57 100 Mechanical Ventilator 30 06/13/17 02:00 105 16 91/54 100 Mechanical Ventilator 30 06/13/17 01:30 107 16 85/54 100 Mechanical Ventilator 30 06/13/17 01:18 104/62 06/13/17 01:00 108 16 104/62 100 Mechanical Ventilator 30 06/13/17 00:50 109 19 30 06/13/17 00:30 100 19 100/67 100 Mechanical Ventilator 30 06/13/17 00:00 100 06/13/17 00:00 99.8 100 18 91/67 100 Mechanical Ventilator 30 06/13/17 00:00 30 06/13/17 00:00 93/62 06/12/17 23:30 100 17 91/67 100 Mechanical Ventilator 30 06/12/17 23:15 104 17 98/64 100 Mechanical Ventilator 30 06/12/17 23:00 105 17 95/64 98 Mechanical Ventilator 30 06/12/17 23:00 100/60 06/12/17 23:00 97/61 06/12/17 22:55 105 17 30 06/12/17 22:45 105 17 96/64 98 Mechanical Ventilator 30 06/12/17 22:30 103 16 101/69 98 Mechanical Ventilator 30 06/12/17 22:15 100 16 100/63 98 Mechanical Ventilator 30 06/12/17 22:15 30 06/12/17 22:00 103 16 101/63 98 Mechanical Ventilator 30 06/12/17 22:00 101/63 06/12/17 21:45 103 17 101/61 100 Mechanical Ventilator 30 06/12/17 21:30 103 17 94/65 100 Mechanical Ventilator 30 06/12/17 21:15 101 18 100/65 100 Mechanical Ventilator 30 06/12/17 21:14 103 17 30 06/12/17 21:00 107 17 96/67 99 Mechanical Ventilator 30 06/12/17 21:00 96/67 06/12/17 21:00 103 90/42 06/12/17 20:45 108 18 86/39 99 Mechanical Ventilator 30 06/12/17 20:30 112 18 82/53 94 Mechanical Ventilator 30 06/12/17 20:15 102 16 101/70 100 Mechanical Ventilator 30 06/12/17 20:00 98.6 102 16 99/59 100 Mechanical Ventilator 30 06/12/17 20:00 99/59 06/12/17 20:00 100 06/12/17 19:45 102 16 91/61 100 Mechanical Ventilator 30 06/12/17 19:30 102 16 94/59 100 Mechanical Ventilator 30 06/12/17 19:15 102 15 97/65 100 Mechanical Ventilator 30 06/12/17 19:08 99/59 06/12/17 19:00 96/67 06/12/17 19:00 97/65 06/12/17 19:00 98.4 100 16 96/67 100 Mechanical Ventilator 30 06/12/17 18:35 97 16 30 06/12/17 18:32 98.2 94 16 93/61 100 Mechanical Ventilator 30 06/12/17 18:19 98.2 94 16 93/61 100 Mechanical Ventilator 30 06/12/17 18:18 93/61 06/12/17 18:13 97/61 06/12/17 18:13 97/61 06/12/17 18:08 74/51 06/12/17 18:08 74/51 06/12/17 18:03 73/45 06/12/17 18:03 73/45 06/12/17 17:58 78/44 06/12/17 17:53 78/44 06/12/17 17:15 105 16 30 06/12/17 16:31 98.2 103 24 98/58 100 Mechanical Ventilator 40 06/12/17 16:15 98.2 106 24 86/54 100 Mechanical Ventilator 06/12/17 16:00 98.2 107 25 102/86 100 Mechanical Ventilator 06/12/17 15:30 98.2 109 17 89/57 100 Mechanical Ventilator 40 06/12/17 14:58 113 18 40 06/12/17 14:46 115 16 81/55 100 Mechanical Ventilator 40 06/12/17 13:00 102.6 131 17 79/26 100 Mechanical Ventilator 40 06/12/17 13:00 40 06/12/17 12:38 134 18 40 06/12/17 12:30 132 20 109/82 100 Mechanical Ventilator Status: awake Condition: critical HEENT: atraumatic Neck: full ROM Lungs: clear, chest wall tender Heart: HR/BP stable Abdomen: soft, non-tender, active bowel sounds Extremities: no C/C/E Critical Care - Subjective ROS Limited/Unobtainable: Yes ICU Day: 2 Intubation Day: 2 Condition: critical EKG Rhythm: Sinus Rhythm FI02: 30 Vent Support Breath Rate: 16 Vent Support Mode: AC Vent Tidal Volume: 600 Sputum Amount: Scant PIP: 25 I&O: Intake and Output 06/12/17 06/13/17 19:00 07:00 Intake Total 270.96 ml 1889.56 ml Output Total 130 ml 1292 ml Balance 140.96 ml 597.56 ml Intake Oral 0 ml 0 ml IV Total 270.96 ml 1889.56 ml Output Urine Total 130 ml 1290 ml Stool Total 2 ml # Bowel Movements 1 5 CXR: no change Labs: Laboratory Tests Test 06/12/17 12:47 06/12/17 12:50 06/12/17 13:50 06/13/17 06:55 Urine Color Yellow Urine Appearance Slightly cloudy Urine pH 5 (4.5-8.0) Urine Specific [place] 1.015 (1.005-1.035) Urine Protein 3+ (NEGATIVE) H Urine Glucose (UA) Negative (NEGATIVE) Urine Ketones Negative (NEGATIVE) Urine Occult Blood 5+ (NEGATIVE) H Urine Nitrite Negative (NEGATIVE) Urine Bilirubin Negative (NEGATIVE) Urine Urobilinogen 1 MG/DL (0.0-1.0) H Urine Leukocyte Esterase 2+ (NEGATIVE) H Urine RBC 60-80 /HPF (0 - 0) H Urine WBC 5-10 /HPF (0 - 0) H Urine Squamous Epithelial Cells Few /LPF (NONE/OCC) Urine Calcium Oxalate Crystals Few /LPF (NONE) Urine Bacteria Few /HPF (NONE) Sodium Level 171 mEQ/L (135-145) *H 169 mEQ/L (135-145) *H Potassium Level 5.2 mEQ/L (3.4-4.9) H 3.8 mEQ/L (3.4-4.9) Chloride Level 130 mEQ/L (98-107) H 132 mEQ/L (98-107) H Carbon Dioxide Level 31 mEQ/L (20-30) H 27 mEQ/L (20-30) Anion Gap 10 (5-15) 10 (5-15) Blood Urea Nitrogen 73 mg/dL (7-23) H 56 mg/dL (7-23) H Creatinine 1.0 mg/dL (0.7-1.2) 0.7 mg/dL (0.7-1.2) Estimat Glomerular Filtration Rate > 60 mL/min (>60) > 60 mL/min (>60) Glucose Level 123 mg/dL (74-106) H 89 mg/dL (74-106) Lactic Acid Level 1.70 mmol/L (0.66-2.22) 1.30 mmol/L (0.66-2.22) Calcium Level 9.0 mg/dL (8.6-10.2) 8.1 mg/dL (8.6-10.2) L Total Bilirubin 0.2 mg/dL (0.0-1.2) 0.3 mg/dL (0.0-1.2) Aspartate Amino Transf (AST/SGOT) 636 U/L (5-40) H 322 U/L (5-40) H Alanine Aminotransferase (ALT/SGPT) 513 U/L (3-41) H 426 U/L (3-41) H Alkaline Phosphatase 360 U/L (40-129) H 289 U/L (40-129) H Total Creatine Kinase 68 U/L (38-174) Creatine Kinase MB 1.7 ng/mL (< 6.7) Creatine Kinase MB Relative Index 2.5 Troponin I < 0.30 ng/mL (<=0.30) Pro-B-Type Natriuretic Peptide 2173 pg/mL (0-125) H Total Protein 7.3 g/dL (6.6-8.7) 6.4 g/dL (6.6-8.7) L Albumin 2.3 g/dL (3.5-5.2) L 2.2 g/dL (3.5-5.2) L Globulin 5.0 g/dL 4.2 g/dL Albumin/Globulin Ratio 0.4 (1.0-2.7) L 0.5 (1.0-2.7) L Amylase Level 30 U/L (10-110) Lipase 17 U/L (< 60) White Blood Count 12.0 K/UL (4.8-10.8) H 10.4 K/UL (4.8-10.8) Red Blood Count 3.61 M/UL (4.70-6.10) L 3.08 M/UL (4.70-6.10) L Hemoglobin 9.5 G/DL (14.2-18.0) L 8.3 G/DL (14.2-18.0) L Hematocrit 33.1 % (42.0-52.0) L 27.9 % (42.0-52.0) L Mean Corpuscular Volume 92 FL (80-99) 91 FL (80-99) Mean Corpuscular Hemoglobin 26.4 PG (27.0-31.0) L 27.1 PG (27.0-31.0) Mean Corpuscular Hemoglobin Concent 28.8 G/DL (32.0-36.0) L 29.9 G/DL (32.0-36.0) L Red Cell Distribution Width 18.4 % (11.6-14.8) H 17.7 % (11.6-14.8) H Platelet Count 270 K/UL (150-450) 271 K/UL (150-450) Mean Platelet Volume 7.8 FL (6.5-10.1) 7.9 FL (6.5-10.1) Neutrophils (%) (Auto) 72.4 % (45.0-75.0) 73.5 % (45.0-75.0) Lymphocytes (%) (Auto) 19.4 % (20.0-45.0) L 16.6 % (20.0-45.0) L Monocytes (%) (Auto) 6.3 % (1.0-10.0) 6.4 % (1.0-10.0) Eosinophils (%) (Auto) 1.5 % (0.0-3.0) 3.2 % (0.0-3.0) H Basophils (%) (Auto) 0.4 % (0.0-2.0) 0.3 % (0.0-2.0) Prothrombin Time 11.2 SEC (9.30-11.50) Prothromb Time International Ratio 1.1 (0.9-1.1) Activated Partial Thromboplast Time 28 SEC (23-33) Arterial Blood pH 7.460 (7.350-7.450) Arterial Blood Partial Pressure CO2 45.0 mmHg (35.0-45.0) Arterial Blood Partial Pressure O2 117.8 mmHg (75.0-100.0) H Arterial Blood HCO3 31.9 mmol/L (22.0-26.0) H Arterial Blood Oxygen Saturation 97.9 % (92.0-98.0) Arterial Blood Base Excess 7.5 Son Test Positive Direct Bilirubin 0.1 mg/dL (0.1-0.3) Random Amikacin Level 17.1 ug/mL Test 06/13/17 09:59 06/13/17 11:05 Arterial Blood pH 7.507 (7.350-7.450) Arterial Blood Partial Pressure CO2 33.0 mmHg (35.0-45.0) L Arterial Blood Partial Pressure O2 86.7 mmHg (75.0-100.0) Arterial Blood HCO3 25.6 mmol/L (22.0-26.0) Arterial Blood Oxygen Saturation 95.8 % (92.0-98.0) Arterial Blood Base Excess 2.5 Son Test Positive Carcinoembryonic Antigen Pending Prostate Specific Antigen Pending HIV (1&2) Antibody Rapid Pending ODETTE SMILEY Jun 13, 2017 11:12
[2017-06-13] MEDS ORDERED: METHYLPREDNISOLONE SOD SUCC IVPB ONE (11:15)
[2017-06-13] MEDS ORDERED: NS IVPB ONE (11:15)
[2017-06-13] MEDS: Solu-MEDROL 125mg Inj IVP SCH (11:33)
[2017-06-13 12:38] LABS: PSA TOTAL 0.6 ng/mL (< 3.5)
[2017-06-13 12:40] LABS: URIC ACID 7.4 mg/dL (3.0-7.5)
[2017-06-13] MEDS ORDERED: Tubing IV Secondary IV ONE (16:43)
[2017-06-13] MEDS ORDERED: NS 275ml ONE (16:43)
[2017-06-13] MEDS ORDERED: Vancomycin 750 MG in D5W 275 ML IVPB SCH (18:00)
--- NOTE | 2017-06-13 20:46 | Consultation ---
DATE OF CONSULTATION: 06/13/2017 INFECTIOUS DISEASE CONSULTATION CONSULTING PHYSICIAN: Zev Wells M.D. REFERRING PHYSICIAN: Shani Moses M.D. REASON FOR CONSULTATION: Septic shock. HISTORY OF PRESENT ILLNESS: This is a 57-year-old male jail resident with a history of chronic ventilator-dependent respiratory failure, anoxic encephalopathy, recurrent multidrug resistant infections, admitted on 06/12/2017 with altered mental status and hypotension. The patient is currently in ICU on pressors. He has evidence of leukocytosis that is now resolved and had a fever as high as 102.6. Also elevated liver function tests. Troponin is negative x1. Chest x-ray shows no acute findings. Cultures are pending. He has been started on empiric IV vancomycin and amikacin, and also received a dose of Invanz and ID now consulted to assist in management. PAST MEDICAL HISTORY: 1. Chronic ventilator-dependent respiratory failure. 2. Ischemic cardiomyopathy with an ejection fraction of 30% to 35%, status post AICD placement. 3. Hypertension. 4. Paroxysmal atrial fibrillation. 5. Hepatitis C antibody positive. 6. Multiple decubitus. PAST SURGICAL HISTORY: 1. AICD placement. 2. Tracheostomy. 3. PEG tube placement. FAMILY HISTORY: Unknown. SOCIAL HISTORY: Patient is a resident of a jail. No active tobacco, alcohol, or illicit drug abuse. ALLERGIES: No known drug allergies. MEDICATIONS: 1. Levophed drip. 2. IV vancomycin day #2. 3. IV amikacin day #2. 4. Status post Invanz x1. 5. Amiodarone. 6. Protonix. 7. Coreg. 8. Keppra. 9. Subcutaneous heparin. REVIEW OF SYSTEMS: Unable to obtain. PHYSICAL EXAMINATION: VITAL SIGNS: Maximum temperature 102.6, blood pressure 91/61, heart rate 119, respiratory rate 19, and saturating 100% on 30% FiO2. GENERAL: The patient is nonresponsive on the ventilator. The patient is cachectic. HEENT: Tracheostomy tube in place. No oral lesions. CARDIOVASCULAR: Tachycardic, no murmurs. PULMONARY: Coarse breath sounds bilaterally. ABDOMINAL: Bowel sounds present. Soft, nondistended, and nontender. PEG tube in place. EXTREMITIES: No edema. SKIN: Multiple decubitus, documented photographically elsewhere. LABORATORY DATA: White blood cell count 10.4, decreased from 12; hemoglobin 8.3; and platelets 271,000. Sodium 169, potassium 3.8, chloride 132, bicarb 27, BUN 56, creatinine 0.71, AST 322, ALT 426, alkaline phosphatase 289, total bilirubin 0.3, and albumin 2.2. Troponin negative x1. Lipase within normal limits. Lactic acid 1.7. MICROBIOLOGY: 1. 06/13/2017, C. diff toxin pending. 2. 06/12/2017, blood culture pending. 3. 06/12/2017, sputum culture pending. 4. 06/12/2017, wound culture pending. IMAGIN. 06/12/2017, chest x-ray no acute cardiopulmonary findings and stable chronic changes. 2. Echocardiogram pending. ASSESSMENT: 1. Septic shock, requiring pressor support, question source. Cultures are pending and lactic acid is within normal limits. Recent CT of the abdomen and pelvis on 05/17/2017 showed no evidence of abscess and pulmonary bibasilar parenchymal consolidation. X-ray today has no evidence of new pneumonia. 2. Stage IV sacral decubitus ulcer, not grossly infected. Surveillance wound culture is pending. 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 3. Chronic sacrococcygeal osteomyelitis. 4. Elevated liver function tests, hepatitis C antibody positive. LFTs improved today. No hepatobiliary disease on CT on 05/17/2017. 5. Diarrhea, rule out Clostridium difficile. Toxin is pending. 6. History of recurrent ventilator-associated pneumonias with multi-drug resistant organisms. No evidence of recurrence on repeat chest x-ray. 7. Leukocytosis, resolved. 8. Fever, resolved. 9. Acute on chronic encephalopathy may be septic or metabolic. He has baseline anoxic encephalopathy. 10. Severe hypernatremia. 11. Cachexia, rule out occult malignancy, HIV or tuberculosis. 12. Acute on chronic anemia. 13. History of tachycardia. 14. Chronic ventilator-dependent respiratory failure, status post tracheostomy and percutaneous endoscopic gastrostomy. 15. Cardiomyopathy status post defibrillator placement. 16. Paroxysmal atrial fibrillation. 17. intermediate resident. 18. Multi-drug resistant organism colonized. 19. No known drug allergies. 20. Full Code, patient was previously DNR. PLAN: 1. Continue empiric IV vancomycin and amikacin day #2. We will add empiric Flagyl day #1. 2. Check tumor markers, HIV, PPD, and abdominal ultrasound. 3. Follow up cultures and C. difficile. 4. Follow up echocardiogram. 5. Monitor CBC and temperatures. 6. Monitor CMP. 7. Monitor chest x-ray. 8. Ventilator support, tracheostomy care, and aspiration precautions. 9. Wound care. 10. Pressor support and wean as tolerated. Thank you. We will follow. Zev Wells M.D. DR: RONALD JOB#: [id number] CC: Shani Moses M.D.; Fax#: [phone] Alborzi, M.D ; Fax#: [phone]
[2017-06-13] MEDS: Pantoprazole Inj IVP SCH (21:18)
--- NOTE | 2017-06-13 21:26 | Wound Care Consultation ---
Wound Assessment Wound Assessment #1: Wound Number: #1 Wound Present on Admission: Yes New Wound: No Status Change of Wound: No Wound Location Body Site Modif: left Wound Location Body Site: ear Wound Type: pressure ulcer Francis Test: Does not Francis Pressure Ulcer Stage: IV/unstageable Wound Thickness: Full Thickness Wound Length: 5.0 Wound Width: 2.0 Wound Depth: utd Percent of Wound Willey/Red: 60 Percent of Wound Bed Yellow/Wh: 30 Percent of Wound Black/Brown: 10 Wound Drainage Description: Serosanguineous Wound Drainage Amount: Moderate Wound Drainage Odor: None/Absent Tissue Surrounding Wound: Macerated Wound General Appearance: Draining Wound Assessment #2: Wound Number: #2 Wound Present on Admission: Yes New Wound: No Status Change of Wound: No Wound Location Body Site Modif: right Wound Location Body Site: ear Wound Type: pressure ulcer Francis Test: Does not Francis Pressure Ulcer Stage: III Wound Thickness: Full Thickness Wound Length: 1.5 Wound Width: 1.5 Wound Depth: 0.1 Percent of Wound Willey/Red: 100 Wound Drainage Amount: Scant Wound Drainage Odor: None/Absent Tissue Surrounding Wound: Erythemic Wound General Appearance: Reddened, Draining Wound Assessment #3: Wound Number: #3 Wound Present on Admission: Yes New Wound: No Status Change of Wound: No Wound Location Body Site Modif: left Wound Location Body Site: heel Wound Type: pressure ulcer Francis Test: Does not Francis Pressure Ulcer Stage: II Wound Thickness: Partial Thickness Wound Length: 3.5 Wound Width: 2.5 Wound Depth: 0.1 Percent of Wound Willey/Red: 100 Wound Drainage Amount: None Wound Drainage Odor: None/Absent Tissue Surrounding Wound: Intact Wound General Appearance: Reddened Wound Assessment #4: Wound Number: #4 Wound Present on Admission: Yes New Wound: No Status Change of Wound: No Wound Location Body Site Modif: right Wound Location Body Site: heel Wound Type: pressure ulcer Francis Test: Does not Francis Pressure Ulcer Stage: II Wound Thickness: Full Thickness Wound Length: 3.5 Wound Width: 1.5 Wound Depth: 0.1 Percent of Wound Willey/Red: 100 Wound Drainage Amount: None Wound Drainage Odor: None/Absent Tissue Surrounding Wound: Intact Wound General Appearance: Reddened Wound Assessment #5: Wound Number: #5 Wound Present on Admission: Yes New Wound: No Status Change of Wound: No Wound Location Body Site Modif: left, lateral Wound Location Body Site: malleolus/ankle Wound Type: pressure ulcer Francis Test: Does not Francis Pressure Ulcer Stage: IV/unstageable Wound Thickness: Full Thickness Wound Length: 3.0 Wound Width: 2.5 Wound Depth: utd Percent of Wound Bed Yellow/Wh: 100 Wound Drainage Description: Serosanguineous Wound Drainage Amount: Moderate Wound Drainage Odor: None/Absent Tissue Surrounding Wound: Macerated Wound General Appearance: Draining, Necrotic Wound Assessment #6: Wound Number: #6 Wound Present on Admission: Yes New Wound: No Status Change of Wound: No Wound Location Body Site Modif: right, lateral Wound Location Body Site: malleolus/ankle Wound Type: pressure ulcer Francis Test: Does not Francis Pressure Ulcer Stage: deep tissue injury Wound Thickness: Full Thickness Wound Length: 2.5 Wound Width: 2.5 Wound Depth: utd Percent of Wound Purple/Maroon: 100 Wound Drainage Amount: None Wound Drainage Odor: None/Absent Tissue Surrounding Wound: Erythemic Wound General Appearance: Reddened - purple Wound Assessment #7: Wound Number: #7 Wound Present on Admission: Yes New Wound: No Status Change of Wound: No Wound Location Body Site Modif: right, medial Wound Location Body Site: malleolus/ankle Wound Type: pressure ulcer Francis Test: Does not Francis Wound Thickness: Full Thickness - scar tissue Wound Length: 1.5 Wound Width: 1.5 Wound Depth: utd Wound Drainage Amount: None Wound Drainage Odor: None/Absent Tissue Surrounding Wound: Intact Wound General Appearance: Reddened Wound Assessment #8: Wound Number: #8 Wound Present on Admission: Yes New Wound: No Status Change of Wound: No Wound Location Body Site Modif: left Wound Location Body Site: elbow Wound Type: pressure ulcer Francis Test: Does not Francis Wound Thickness: Full Thickness - scattered scar tissue Percent of Wound Willey/Red: 100 Wound Drainage Amount: None Wound Drainage Odor: None/Absent Tissue Surrounding Wound: Intact Wound General Appearance: Reddened Wound Assessment #9: Wound Number: #9 Wound Present on Admission: Yes New Wound: No Status Change of Wound: No Wound Location Body Site Modif: mid Wound Location Body Site: other - sacrococcygeal Wound Type: pressure ulcer Francis Test: Does not Francis Pressure Ulcer Stage: IV/unstageable Wound Thickness: Full Thickness Wound Length: 13.0 Wound Width: 18.5 Wound Depth: utd Percent of Wound Willey/Red: 50 Percent of Wound Bed Yellow/Wh: 30 Percent of Wound Black/Brown: 10 Percent of Wound Purple/Maroon: 10 Wound Drainage Description: Serosanguineous Wound Drainage Amount: Copious Wound Drainage Odor: Foul Odor Tissue Surrounding Wound: Macerated Wound General Appearance: Draining, Necrotic, Bone Palpable, Muscle Visible Wound Assessment #10: Wound Number: #10 Wound Present on Admission: Yes New Wound: No Status Change of Wound: No Wound Location Body Site Modif: right Wound Location Body Site: ischial tuberosity Wound Type: pressure ulcer Francis Test: Does not Francis Pressure Ulcer Stage: III Wound Thickness: Full Thickness Wound Length: 4.5 Wound Width: 4.5 Wound Depth: 0.2 Percent of Wound Willey/Red: 90 Percent of Wound Bed Yellow/Wh: 10 Wound Drainage Description: Serosanguineous Wound Drainage Amount: Moderate Wound Drainage Odor: None/Absent Tissue Surrounding Wound: Macerated Wound General Appearance: Reddened, Draining Wound Assessment #11: Wound Number: #11 Wound Present on Admission: Yes New Wound: No Status Change of Wound: No Wound Location Body Site: back Wound Type: pressure ulcer Francis Test: Does not Francis Pressure Ulcer Stage: deep tissue injury - scattered Wound Thickness: Full Thickness Percent of Wound Purple/Maroon: 100 Wound Drainage Amount: None Wound Drainage Odor: None/Absent Tissue Surrounding Wound: Erythemic Wound General Appearance: Reddened - purple Wound Assessment #12: Wound Number: #12 Wound Present on Admission: Yes New Wound: No Status Change of Wound: No Wound Location Body Site Modif: left Wound Location Body Site: scapula Wound Type: pressure ulcer Francis Test: Does not Francis Pressure Ulcer Stage: deep tissue injury Wound Thickness: Full Thickness Wound Length: 2.0 Wound Width: 3.5 Wound Depth: utd Percent of Wound Purple/Maroon: 100 Wound Drainage Amount: None Wound Drainage Odor: None/Absent Tissue Surrounding Wound: Erythemic Wound General Appearance: Reddened Wound Assessment #13: Wound Number: #13 Wound Present on Admission: Yes New Wound: No Status Change of Wound: No Wound Location Body Site Modif: left Wound Location Body Site: ischial tuberosity Wound Type: pressure ulcer Francis Test: Does not Francis Pressure Ulcer Stage: III - scattered Wound Thickness: Full Thickness Wound Length: 6.5 Wound Width: 5.5 Wound Depth: 0.2 Percent of Wound Willey/Red: 90 Percent of Wound Bed Yellow/Wh: 10 Wound Drainage Description: Serosanguineous Wound Drainage Amount: Moderate Wound Drainage Odor: None/Absent Tissue Surrounding Wound: Macerated Wound General Appearance: Reddened, Draining Wound Assessment #14: Wound Number: #14 Wound Present on Admission: Yes New Wound: No Status Change of Wound: No Wound Location Body Site Modif: right, lateral Wound Location Body Site: knee Wound Type: pressure ulcer Francis Test: Does not Francis Pressure Ulcer Stage: III Wound Thickness: Full Thickness Wound Length: 1.0 Wound Width: 1.0 Wound Depth: 0.2 Percent of Wound Willey/Red: 80 Percent of Wound Purple/Maroon: 20 Wound Drainage Description: Serosanguineous Wound Drainage Amount: Scant Wound Drainage Odor: None/Absent Tissue Surrounding Wound: Erythemic Wound General Appearance: Reddened, Draining Wound Assessment #15: Wound Number: #15 Wound Present on Admission: Yes New Wound: No Status Change of Wound: No Wound Location Body Site Modif: right, medial Wound Location Body Site: knee Wound Type: pressure ulcer Francis Test: Does not Francis Pressure Ulcer Stage: III Wound Thickness: Full Thickness Wound Length: 0.8 Wound Width: 0.8 Wound Depth: 0.1 Percent of Wound Willey/Red: 100 Wound Drainage Description: Serosanguineous Wound Drainage Amount: Scant Wound Drainage Odor: None/Absent Tissue Surrounding Wound: Intact Wound General Appearance: Reddened, Draining Wound Assessment #16: Wound Number: #16 Wound Present on Admission: Yes New Wound: No Status Change of Wound: No Wound Location Body Site Modif: right Wound Location Body Site: scapula Wound Type: pressure ulcer Francis Test: Does not Francis Pressure Ulcer Stage: III Wound Thickness: Full Thickness Wound Length: 2.5 Wound Width: 2.5 Wound Depth: 0.1 Percent of Wound Willey/Red: 100 Wound Drainage Description: Serosanguineous Wound Drainage Amount: Scant Wound Drainage Odor: None/Absent Tissue Surrounding Wound: Erythemic Wound General Appearance: Reddened, Draining Wound Assessment #17: Wound Number: #17 Wound Present on Admission: Yes New Wound: No Status Change of Wound: No Wound Location Body Site Modif: right Wound Location Body Site: perineal area Wound Type: erosion Francis Test: Does not Francis Wound Thickness: Partial Thickness Wound Length: 3.0 Wound Width: 3.5 Wound Depth: less than 0.1 Percent of Wound Willey/Red: 100 Wound Drainage Description: Serosanguineous Wound Drainage Amount: Scant Wound Drainage Odor: None/Absent Tissue Surrounding Wound: Erythemic Wound General Appearance: Reddened, Draining Wound Assessment #18: Wound Number: #18 Wound Present on Admission: Yes New Wound: No Status Change of Wound: No Wound Location Body Site Modif: left, medial Wound Location Body Site: knee Wound Type: pressure ulcer Francis Test: Does not Francis Wound Thickness: Full Thickness - scar tissue Wound Length: 0.8 Wound Width: 0.5 Wound Depth: utd Percent of Wound Willey/Red: 100 Wound Drainage Amount: None Wound Drainage Odor: None/Absent Tissue Surrounding Wound: Erythemic Wound General Appearance: Reddened Wound Comment #1 Left ear unstageable pressure ulcer #2 Right ear stage III pressure ulcer #3 Left lateral malleolus unstageable pressure ulcer #4 Left heel stage II pressure ulcer #5 Right heel stage II pressure ulcer #6 Right medial malleolus full thickness scar tissue #7 Right lateral malleolus DTI pressure ulcer #8 Back area scattered scar tissue and DTI pressure ulcers #9 Right ischial tuberosity stage III pressure ulcer #10 Left scapula DTI pressure ulcer #11 Right scapula stage III pressure ulcer #12 Left ischial tuberosity scattered stage III pressure ulcer #13 Right perineal area erosion with partial thickness skin loss #14 Right medial knee stage III pressure ulcer #15 Right lateral knee stage III pressure ulcer #16 Left lateral knee full thickness scar tissue #17 Sacrococcygeal unstageable pressure ulcer #18 Left elbow scattered full thickness scar tissue Recommendation -Right lateral knee stage III pressure ulcer, Right medial knee stage III pressure ulcer, Right ear stage III pressure ulcer, Left ear unstageable pressure ulcer, Left heel Stage II pressure ulcer, right heel stage II pressure ulcer, Left ischial tuberosity scattered stage III pressure ulcer, Right ischial tuberosity stage III pressure ulcer and right perineal area erosion with partial thickness skin loss Cleanse with saline, pat dry, apply Triad cream, cover with bordered gauze daily and PRN soiled/dislodged -Sacrococcygeal IV/unstageable pressure ulcer Cleanse with Dakin's solution, pat dry, apply Triad cream to periwound area, apply hydrogel to wound bed apply calcium alginate, cover with 4x4, secure with bordered gauze daily and PRN soiled/dislodged -Left malleolus unstageable pressure ulcer Cleanse with saline, pat dry, apply Therahoney gel to wound bed, cover with Biatain silicone daily and PRN soiled/dislodged -Local wound care per protocol for DTIs -Low air loss mattress -Keep clean and dry -Heel protector on both heels -Offload both heels -Optimize nutrition -Assess and f/u accordingly for any changes KENN GRACE RN Jun 13, 2017 21:26
[2017-06-14] VITALS (13 sets, daily range): BP systolic 85–123; BP diastolic 53–76
[2017-06-14] MEDS: LORazepam Inj 2mg/ml 1ml IV PRN ×2 (00:21→06:07)
[2017-06-14] MEDS ORDERED: Dyna-Hex 2% Top Sol 8oz TOPIC SCH ×2 (04:00→21:00)
[2017-06-14 05:48] LABS: BASOPHILS % (AUTO) 0.3 % (0.0-2.0); LYMPHOCYTES % (AUTO) 15.4 % (20.0-45.0); MEAN CORPUSCULAR HEMOGLOBIN 26.9 PG (27.0-31.0); MEAN CORPUSCULAR HGB CONC 29.8 G/DL (32.0-36.0); MEAN CORPUSCULAR VOLUME 90 FL (80-99); MEAN PLATELET VOLUME 7.4 FL (6.5-10.1); MONOCYTES % (AUTO) 4.6 % (1.0-10.0); NEUTROPHILS % (AUTO) 79.7 % (45.0-75.0); PLATELET COUNT 256 K/UL (150-450); RED BLOOD COUNT 3.28 M/UL (4.70-6.10); RED CELL DISTRIBUTION WIDTH 17.9 % (11.6-14.8); WHITE BLOOD COUNT 7.9 K/UL (4.8-10.8)
[2017-06-14] MEDS: Vancomycin 750 MG in D5W 275 ML IVPB SCH ×2 (06:05→17:28)
[2017-06-14] MEDS: metroNIDAZOLE 500mg tab PEG SCH ×3 (06:07→21:18)
[2017-06-14 06:08] LABS: ALANINE AMINOTRANSFERASE 220 U/L (3-41); ALBUMIN/GLOBULIN RATIO 0.5 (1.0-2.7); ASPARTATE AMINO TRANSFERASE 81 U/L (5-40); CALCIUM 8.9 mg/dL (8.6-10.2); CARBON DIOXIDE 26 mEQ/L (20-30); CHLORIDE 125 mEQ/L (98-107); CREATININE 0.7 mg/dL (0.7-1.2); GLOMERULAR FILTRATION RATE > 60 mL/min (>60); HEMOLYSIS 1; MAGNESIUM 2.1 mg/dL (1.7-2.5); POTASSIUM 3.4 mEQ/L (3.4-4.9); TOTAL PROTEIN 6.8 g/dL (6.6-8.7)
[2017-06-14 06:09] LABS: ANION GAP 9 (5-15); SODIUM 160 mEQ/L (135-145)
[2017-06-14] MEDS ORDERED: Amikacin 800 MG in NS 110 ML IV SCH (08:00)
[2017-06-14] MEDS: Amiodarone 200mg tab GT SCH (08:23)
[2017-06-14] MEDS: Pantoprazole Inj IVP SCH ×2 (08:23→21:06)
[2017-06-14] MEDS: levETIRAcetam 500mg/5ml Liquid GT SCH ×2 (08:35→21:11)
[2017-06-14] MEDS: Heparin 5000 units/ml inj SUBQ SCH ×2 (08:35→21:07)
[2017-06-14] MEDS ORDERED: Dakin's 0.25% (Half Strength) 16oz TOPIC SCH (09:00)
--- NOTE | 2017-06-14 09:37 | General Progress Note ---
Assessment/Plan Status: stable - from renal stand Assessment/Plan status: (1) Acute on chronic respiratory failure (2) Septic shock, LOW BP stablized (3) Acute hypernatremia, Free water deficit (4) Feeding by G-tube (5) EF of 30 (6) High LFTs Plan; D5w Pressors Solumedrol one dose given Antibiotics Albumin bollous given Monitor renal parameters- Prone to acute renal failure due to antibiotics Subjective ROS Limited/Unobtainable: Yes Allergies: Coded Allergies: No Known Allergies (Unverified , 03/07/17) Objective Last 24 Hour Vital Signs Date Time Temp Pulse Resp B/P Pulse Ox O2 Delivery O2 Flow Rate FiO2 06/14/17 08:52 76 16 30 06/14/17 08:23 80 119/75 06/14/17 08:00 30 06/14/17 08:00 89 06/14/17 06:45 90 16 30 06/14/17 05:27 98 17 30 06/14/17 04:00 95 06/14/17 04:00 30 06/14/17 03:32 105 16 30 06/14/17 00:00 30 06/14/17 00:00 100 06/13/17 23:43 40 06/13/17 23:43 100 17 30 06/13/17 21:39 100 16 30 06/13/17 21:18 96 100/56 06/13/17 20:00 102 06/13/17 20:00 30 06/13/17 19:22 109 17 30 06/13/17 19:00 107 18 102/58 100 Mechanical Ventilator 06/13/17 18:00 104 18 96/51 100 Mechanical Ventilator 06/13/17 17:30 103 18 93/61 100 Mechanical Ventilator 06/13/17 17:00 106 18 108/62 100 Mechanical Ventilator 06/13/17 16:42 101 16 30 06/13/17 16:30 106 16 100/54 100 Mechanical Ventilator 06/13/17 16:00 106 06/13/17 16:00 98.9 102 16 108/61 100 Mechanical Ventilator 06/13/17 16:00 30 06/13/17 15:30 102 16 108/61 100 Mechanical Ventilator 06/13/17 15:00 103 16 93/61 100 Mechanical Ventilator 06/13/17 14:50 106 18 30 06/13/17 14:30 104 16 112/63 100 Mechanical Ventilator 30 06/13/17 14:00 106 16 105/61 100 Mechanical Ventilator 30 06/13/17 13:30 108 16 111/59 99 Mechanical Ventilator 30 06/13/17 13:00 110 16 109/58 99 Mechanical Ventilator 30 06/13/17 12:50 108 18 30 06/13/17 12:30 115 16 97/68 99 Mechanical Ventilator 06/13/17 12:00 113 06/13/17 12:00 98.6 116 16 100/59 97 Mechanical Ventilator 30 06/13/17 12:00 30 06/13/17 11:30 114 16 92/59 100 Mechanical Ventilator 30 06/13/17 11:00 117 17 90/54 100 Mechanical Ventilator 06/13/17 10:41 113 19 30 06/13/17 10:30 115 17 100/61 100 Mechanical Ventilator 30 06/13/17 10:00 117 16 90/58 100 Mechanical Ventilator 30 Intake and Output 06/13/17 06/14/17 19:00 07:00 Intake Total 1295.89 ml 900 ml Output Total 480 ml 450 ml Balance 815.89 ml 450 ml Intake Oral 0 ml 0 ml IV Total 1245.89 ml 900 ml Tube Feeding 50 ml Output Urine Total 480 ml 450 ml # Bowel Movements 2 5 Laboratory Tests 06/13/17 09:59: Arterial Blood pH 7.507H, Arterial Blood Partial Pressure CO2 33.0L, Arterial Blood Partial Pressure O2 86.7, Arterial Blood HCO3 25.6, Arterial Blood Oxygen Saturation 95.8, Arterial Blood Base Excess 2.5, Son Test Positive 06/13/17 11:05: Uric Acid 7.4, Iron Level 21L, Total Iron Binding Capacity 108L, Percent Iron Saturation 19, Unsaturated Iron Binding 87L, Ferritin 1254H, Carcinoembryonic Antigen 13.6H, Prostate Specific Antigen 0.6, Vitamin B12 Level 1246H, HIV (1&2 ) Antibody Rapid Negative 06/13/17 16:20: Vancomycin Level Trough 25.1H 06/14/17 05:30: White Blood Count 7.9, Red Blood Count 3.28L, Hemoglobin 8.8L, Hematocrit 29.6L , Mean Corpuscular Volume 90, Mean Corpuscular Hemoglobin 26.9L, Mean Corpuscular Hemoglobin Concent 29.8L, Red Cell Distribution Width 17.9H, Platelet Count 256, Mean Platelet Volume 7.4, Neutrophils (%) (Auto) 79.7H, Lymphocytes (%) (Auto) 15.4L, Monocytes (%) (Auto) 4.6, Eosinophils (%) (Auto) 0.0, Basophils (%) (Auto) 0.3, Sodium Level 160H, Potassium Level 3.4, Chloride Level 125H, Carbon Dioxide Level 26, Anion Gap 9, Blood Urea Nitrogen 46H, Creatinine 0.7, Estimat Glomerular Filtration Rate > 60, Glucose Level 117H, Calcium Level 8.9, Phosphorus Level 3.0, Magnesium Level 2.1, Total Bilirubin 0.4, Aspartate Amino Transf (AST/SGOT) 81H, Alanine Aminotransferase (ALT/SGPT) 220H, Alkaline Phosphatase 219H, Total Protein 6.8, Albumin 2.3L, Globulin 4.5, Albumin/Globulin Ratio 0.5L Height (Feet): 5 Height (Inches): 7.00 Weight (Pounds): 109 General Appearance: no apparent distress, lethargic Cardiovascular: normal rate Respiratory/Chest: decreased breath sounds Abdomen: distended CRICKET MITCHELL Jun 14, 2017 09:37
--- NOTE | 2017-06-14 09:46 | Diagnostic Imaging Report ---
Indication: Abnormal liver function tests Technique: Martin-scale and duplex images of the upper abdomen were obtained Comparison: 03/09/2017 Findings: Gallbladder demonstrates wall thickening, gallbladder wall measuring 6 mm thick. No stones. No pericholecystic fluid Sonographic Melendez's sign is negative. Common bile duct measures 5 mm in diameter. No intrahepatic biliary ductal dilatation. Liver demonstrates normal echogenicity, no focal abnormality. Portal vein and hepatic veins are patent. Pancreas is incompletely visualized due to overlying bowel gas, visualized portions are unremarkable. Spleen is unremarkable. Left kidney measures 12 cm in length. Right kidney measures 10.6 cm length. Both kidneys demonstrate increased echogenicity . 9 hyperechoic focus is seen in the lower pole left kidney. One or more hyperechoic shadowing foci are seen in the right kidney. This is also demonstrated previously. There is no hydronephrosis. There is a tiny focus of perinephric fluid adjacent to the right kidney. Previously reported left lower pole renal cyst is not currently evident. . Abdominal aorta is partially obscured by bowel gas, visualized portions are non-aneurysmal . There is questionably a trace right pleural effusion Impression: Gallbladder wall thickening. No definite gallstones. Possibly edema due to hemodynamic derangement or adjacent hepatocellular disease. Acute acalculous cholecystitis not completely excludable, however. If there is high clinical suspicion, consider further evaluation with nuclear medicine hepatobiliary imaging Bilateral echogenic kidneys, also previously described, consistent with medical renal disease Bilateral intrarenal echogenic foci. That on the right likely corresponding to calyceal calculus demonstrated on 05/18/[address] abnormality on the left, possibly artifactual Poor visualization of the abdominal aorta and pancreas due to bowel gas and body habitus Questionable trace right pleural effusion Trace right perinephric fluid
--- NOTE | 2017-06-14 11:10 | Pulmonolgy Critical Care Note ---
Critical Care - Asmt/Plan Problems: (1) Acute on chronic respiratory failure (2) Septic shock (3) Chronic respiratory acidosis (4) Altered level of consciousness (5) EF of 30 (6) Feeding by G-tube Respiratory: monitor respiratory rate, adjust FIO2, ABG Cardiac: stop pressors, continue to monitor HR/BP Renal: F/U I&O, keep IV fluid, check electrolytes Infectious Disease: check cultures, continue antibiotics Gastrointestinal: start feedings Endocrine: monitor blood sugar, check TSH Neurologic: PRN Ativan, PRN Morphine Disposition: transfer to - fe Notes Reviewed: fisher terrapin, renal Discussed with: nurses, consultants Critical Care - Objective Last 24 Hour Vital Signs Date Time Temp Pulse Resp B/P Pulse Ox O2 Delivery O2 Flow Rate FiO2 06/14/17 10:34 72 16 30 06/14/17 08:52 76 16 30 06/14/17 08:23 80 119/75 06/14/17 08:00 30 06/14/17 08:00 89 06/14/17 06:45 90 16 30 06/14/17 05:27 98 17 30 06/14/17 04:00 95 06/14/17 04:00 30 06/14/17 03:32 105 16 30 06/14/17 00:00 30 06/14/17 00:00 100 06/13/17 23:43 40 06/13/17 23:43 100 17 30 06/13/17 21:39 100 16 30 06/13/17 21:18 96 100/56 06/13/17 20:00 102 06/13/17 20:00 30 06/13/17 19:22 109 17 30 06/13/17 19:00 107 18 102/58 100 Mechanical Ventilator 30 06/13/17 18:00 104 18 96/51 100 Mechanical Ventilator 30 06/13/17 17:30 103 18 93/61 100 Mechanical Ventilator 06/13/17 17:00 106 18 108/62 100 Mechanical Ventilator 06/13/17 16:42 101 16 30 06/13/17 16:30 106 16 100/54 100 Mechanical Ventilator 30 06/13/17 16:00 106 06/13/17 16:00 98.9 102 16 108/61 100 Mechanical Ventilator 06/13/17 16:00 30 06/13/17 15:30 102 16 108/61 100 Mechanical Ventilator 30 06/13/17 15:00 103 16 93/61 100 Mechanical Ventilator 30 06/13/17 14:50 106 18 30 06/13/17 14:30 104 16 112/63 100 Mechanical Ventilator 30 06/13/17 14:00 106 16 105/61 100 Mechanical Ventilator 30 06/13/17 13:30 108 16 111/59 99 Mechanical Ventilator 30 06/13/17 13:00 110 16 109/58 99 Mechanical Ventilator 30 06/13/17 12:50 108 18 30 06/13/17 12:30 115 16 97/68 99 Mechanical Ventilator 30 06/13/17 12:00 113 06/13/17 12:00 98.6 116 16 100/59 97 Mechanical Ventilator 30 06/13/17 12:00 30 06/13/17 11:30 114 16 92/59 100 Mechanical Ventilator 30 Status: sedated Condition: critical HEENT: atraumatic, normocephalic Lungs: chest wall tender Heart: HR/BP stable, HR/BP unstable Abdomen: non-tender, active bowel sounds Extremities: no C/C/E Micro: Microbiology Date/Time Source Procedure Growth Status 06/12/17 12:55 Blood Blood Culture - Preliminary NO GROWTH AFTER 24 HOURS Resulted 06/12/17 12:40 Blood Blood Culture - Preliminary NO GROWTH AFTER 24 HOURS Resulted 06/12/17 12:47 Nasal Nares MRSA Culture - Final NO METHICILLIN RESISTANT STAPH AUREUS... Complete 06/13/17 06:05 Stool Clostridium difficile Toxin Assay - Final Complete 06/12/17 22:00 Sacral Wound Gram Stain - Final Resulted 06/12/17 22:00 Wound Culture - Preliminary Gram Negative Bacillus 1 Resulted Critical Care - Subjective ROS Limited/Unobtainable: Yes ICU Day: 3 Condition: critical EKG Rhythm: Sinus Rhythm FI02: 30 Vent Support Breath Rate: 16 Vent Support Mode: AC Vent Tidal Volume: 600 Sputum Amount: Scant PIP: 20 Fluids: d5 w 75 cc.hour Tube Feeding Amount: 50 I&O: Intake and Output 06/13/17 06/14/17 19:00 07:00 Intake Total 1295.89 ml 900 ml Output Total 480 ml 450 ml Balance 815.89 ml 450 ml Intake Oral 0 ml 0 ml IV Total 1245.89 ml 900 ml Tube Feeding 50 ml Output Urine Total 480 ml 450 ml # Bowel Movements 2 5 CXR: no changes Labs: Laboratory Tests Test 06/13/17 16:20 06/14/17 05:30 Vancomycin Level Trough 25.1 ug/mL (5.0-12.0) H White Blood Count 7.9 K/UL (4.8-10.8) Red Blood Count 3.28 M/UL (4.70-6.10) L Hemoglobin 8.8 G/DL (14.2-18.0) L Hematocrit 29.6 % (42.0-52.0) L Mean Corpuscular Volume 90 FL (80-99) Mean Corpuscular Hemoglobin 26.9 PG (27.0-31.0) L Mean Corpuscular Hemoglobin Concent 29.8 G/DL (32.0-36.0) L Red Cell Distribution Width 17.9 % (11.6-14.8) H Platelet Count 256 K/UL (150-450) Mean Platelet Volume 7.4 FL (6.5-10.1) Neutrophils (%) (Auto) 79.7 % (45.0-75.0) H Lymphocytes (%) (Auto) 15.4 % (20.0-45.0) L Monocytes (%) (Auto) 4.6 % (1.0-10.0) Eosinophils (%) (Auto) 0.0 % (0.0-3.0) Basophils (%) (Auto) 0.3 % (0.0-2.0) Sodium Level 160 mEQ/L (135-145) H Potassium Level 3.4 mEQ/L (3.4-4.9) Chloride Level 125 mEQ/L (98-107) H Carbon Dioxide Level 26 mEQ/L (20-30) Anion Gap 9 (5-15) Blood Urea Nitrogen 46 mg/dL (7-23) H Creatinine 0.7 mg/dL (0.7-1.2) Estimat Glomerular Filtration Rate > 60 mL/min (>60) Glucose Level 117 mg/dL (74-106) H Calcium Level 8.9 mg/dL (8.6-10.2) Phosphorus Level 3.0 mg/dL (2.5-4.8) Magnesium Level 2.1 mg/dL (1.7-2.5) Total Bilirubin 0.4 mg/dL (0.0-1.2) Aspartate Amino Transf (AST/SGOT) 81 U/L (5-40) H Alanine Aminotransferase (ALT/SGPT) 220 U/L (3-41) H Alkaline Phosphatase 219 U/L (40-129) H Total Protein 6.8 g/dL (6.6-8.7) Albumin 2.3 g/dL (3.5-5.2) L Globulin 4.5 g/dL Albumin/Globulin Ratio 0.5 (1.0-2.7) L ODETTE SMILEY Jun 14, 2017 11:10
[2017-06-14] MEDS: Solu-MEDROL 125mg Inj IVP SCH (12:04)
[2017-06-14] MEDS ORDERED: DuoNeb 0.5-3(2.5)mg/3ml neb HHN PRN (19:30)
[2017-06-14] MEDS ORDERED: LORazepam Inj 2mg/ml 1ml IV PRN (19:30)
[2017-06-14] MEDS ORDERED: Miralax 17gm pkt ORAL PRN (19:30)
[2017-06-14] MEDS ORDERED: Morphine Sulfate 4mg/ml Inj IVP PRN (20:00)
[2017-06-14] MEDS ORDERED: Solu-MEDROL 125mg Inj IVP ONE (20:00)
[2017-06-15] VITALS: BP 90/67
[2017-06-15 04:51] VITALS: BP 110/67
[2017-06-15] MEDS: metroNIDAZOLE 500mg tab PEG SCH ×3 (05:54→21:54)
[2017-06-15] MEDS: Vancomycin 750 MG in D5W 275 ML IVPB SCH ×2 (05:54→18:07)
[2017-06-15 05:58] LABS: MEAN CORPUSCULAR HEMOGLOBIN 28.1 PG (27.0-31.0); MEAN CORPUSCULAR HGB CONC 31.4 G/DL (32.0-36.0); MEAN CORPUSCULAR VOLUME 90 FL (80-99); PLATELET COUNT 264 K/UL (150-450); RED BLOOD COUNT 2.98 M/UL (4.70-6.10); RED CELL DISTRIBUTION WIDTH 17.5 % (11.6-14.8); WHITE BLOOD COUNT 7.9 K/UL (4.8-10.8)
[2017-06-15 06:00] LABS: ALANINE AMINOTRANSFERASE 156 U/L (3-41); ALBUMIN/GLOBULIN RATIO 0.5 (1.0-2.7); ANION GAP 13 (5-15); ASPARTATE AMINO TRANSFERASE 38 U/L (5-40); CALCIUM 8.6 mg/dL (8.6-10.2); CARBON DIOXIDE 23 mEQ/L (20-30); CHLORIDE 115 mEQ/L (98-107); CREATININE 0.9 mg/dL (0.7-1.2); GLOMERULAR FILTRATION RATE > 60 mL/min (>60); HEMOLYSIS 4; PHOSPHORUS 5.3 mg/dL (2.5-4.8); POTASSIUM 3.5 mEQ/L (3.4-4.9); SODIUM 151 mEQ/L (135-145); TOTAL PROTEIN 6.4 g/dL (6.6-8.7)
[2017-06-15 06:15] LABS: CRP QUANT 1.8 mg/dL (< 0.5); URIC ACID 8.5 mg/dL (3.0-7.5)
[2017-06-15 08:09] VITALS: BP 102/80
--- NOTE | 2017-06-15 08:18 | Infectious Diseases Prog Note ---
Assessment/Plan Assessment/Plan A; Sepsis improving Chronic sacral osteomyelitis Cholelithiasis VDRF Hepatitis C CHF, cardiomyopathy Anemia Multiple pressure ulcers P Continue Vancomycin Change Amikacin to Cefepime will f/u cultures Subjective ROS Limited/Unobtainable: Yes Allergies: Coded Allergies: No Known Allergies (Unverified , 03/07/17) Objective Vital Signs Last 24 Hour Vital Signs Date Time Temp Pulse Resp B/P Pulse Ox O2 Delivery O2 Flow Rate FiO2 06/15/17 07:00 83 16 30 06/15/17 05:40 85 16 30 06/15/17 04:51 96.8 81 16 110/67 100 Mechanical Ventilator 30 06/15/17 04:00 30 06/15/17 03:33 89 06/15/17 03:01 89 16 30 06/15/17 01:19 91 16 30 06/15/17 00:00 30 06/15/17 00:00 97.9 83 20 90/67 99 Mechanical Ventilator 30 06/15/17 00:00 83 06/14/17 23:44 85 16 30 06/14/17 21:52 91 16 30 06/14/17 21:05 86 112/79 06/14/17 20:00 30 06/14/17 19:48 86 06/14/17 19:47 87 16 30 06/14/17 19:00 92 20 112/65 98 Mechanical Ventilator 30 06/14/17 19:00 93 06/14/17 18:00 89 18 100/65 99 Mechanical Ventilator 30 06/14/17 17:00 70 18 101/66 100 Mechanical Ventilator 30 06/14/17 16:30 96 16 30 06/14/17 16:00 95 06/14/17 16:00 30 06/14/17 16:00 98.5 92 20 85/53 99 Mechanical Ventilator 30 06/14/17 15:17 75 16 30 06/14/17 15:00 70 18 101/60 99 Mechanical Ventilator 30 06/14/17 14:14 123/76 06/14/17 14:00 79 18 123/76 100 Mechanical Ventilator 30 06/14/17 13:00 78 22 112/71 100 Mechanical Ventilator 30 06/14/17 12:50 81 18 30 06/14/17 12:35 98.7 06/14/17 12:00 81 06/14/17 12:00 30 06/14/17 12:00 98.7 79 18 105/66 100 Mechanical Ventilator 30 06/14/17 11:00 80 18 109/75 98 Mechanical Ventilator 30 06/14/17 10:34 72 16 30 06/14/17 10:00 79 20 121/76 100 Mechanical Ventilator 06/14/17 09:00 82 20 106/68 100 Mechanical Ventilator 30 06/14/17 08:52 76 16 30 06/14/17 08:23 80 119/75 Height (Feet): 5 Height (Inches): 7.00 Weight (Pounds): 110 General Appearance: cachetic HEENT: status post trach Respiratory/Chest: rhonchi - bilaterally, other - on ventilator Cardiovascular: normal rate Abdomen: soft, non tender, other - GT , Extremities: no edema Skin: ulcers 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: unresponsiveness Microbiology Date/Time Source Procedure Growth Status 06/12/17 12:55 Blood Blood Culture - Preliminary NO GROWTH AFTER 48 HOURS Resulted 06/12/17 12:40 Blood Blood Culture - Preliminary NO GROWTH AFTER 48 HOURS Resulted 06/12/17 12:47 Nasal Nares MRSA Culture - Final NO METHICILLIN RESISTANT STAPH AUREUS... Complete 06/13/17 06:05 Stool Clostridium difficile Toxin Assay - Final Complete 06/12/17 22:00 Sacral Wound Gram Stain - Final Resulted 06/12/17 22:00 Wound Culture - Preliminary Gram Negative Bacillus 1 Resulted Laboratory Tests Test 06/15/17 04:00 White Blood Count 7.9 K/UL (4.8-10.8) Red Blood Count 2.98 M/UL (4.70-6.10) L Hemoglobin 8.4 G/DL (14.2-18.0) L Hematocrit 26.7 % (42.0-52.0) L Mean Corpuscular Volume 90 FL (80-99) Mean Corpuscular Hemoglobin 28.1 PG (27.0-31.0) Mean Corpuscular Hemoglobin Concent 31.4 G/DL (32.0-36.0) L Red Cell Distribution Width 17.5 % (11.6-14.8) H Platelet Count 264 K/UL (150-450) Mean Platelet Volume 9.0 FL (6.5-10.1) Neutrophils (%) (Auto) % (45.0-75.0) Lymphocytes (%) (Auto) % (20.0-45.0) Monocytes (%) (Auto) % (1.0-10.0) Eosinophils (%) (Auto) % (0.0-3.0) Basophils (%) (Auto) % (0.0-2.0) Neutrophils % (Manual) Pending Lymphocytes % (Manual) Pending Platelet Estimate Pending Platelet Morphology Pending Sodium Level 151 mEQ/L (135-145) H Potassium Level 3.5 mEQ/L (3.4-4.9) Chloride Level 115 mEQ/L (98-107) H Carbon Dioxide Level 23 mEQ/L (20-30) Anion Gap 13 (5-15) Blood Urea Nitrogen 54 mg/dL (7-23) H Creatinine 0.9 mg/dL (0.7-1.2) Estimat Glomerular Filtration Rate > 60 mL/min (>60) Glucose Level 182 mg/dL (74-106) H Uric Acid 8.5 mg/dL (3.0-7.5) H Calcium Level 8.6 mg/dL (8.6-10.2) Phosphorus Level 5.3 mg/dL (2.5-4.8) H Magnesium Level 2.0 mg/dL (1.7-2.5) Total Bilirubin 0.2 mg/dL (0.0-1.2) Gamma Glutamyl Transpeptidase 145 U/L (8-61) H Aspartate Amino Transf (AST/SGOT) 38 U/L (5-40) Alanine Aminotransferase (ALT/SGPT) 156 U/L (3-41) H Alkaline Phosphatase 214 U/L (40-129) H Total Creatine Kinase 33 U/L (38-174) L C-Reactive Protein, Quantitative 1.8 mg/dL (< 0.5) H Pro-B-Type Natriuretic Peptide 4892 pg/mL (0-125) H Total Protein 6.4 g/dL (6.6-8.7) L Albumin 2.3 g/dL (3.5-5.2) L Globulin 4.1 g/dL Albumin/Globulin Ratio 0.5 (1.0-2.7) L Current Medications Medications (Trade) Dose Ordered Sig/Tameka Route PRN Reason Start Time Stop Time Status Last Admin Dose Admin Acetaminophen (Tylenol) 650 mg Q4H PRN ORAL fever 06/14/17 19:30 07/14/17 19:29 Albuterol/ Ipratropium (DuoNeb 0.5-3(2.5)mg/3ml) 3 ml Q4H PRN HHN Shortness of Breath 06/14/17 19:30 06/19/17 19:29 Amikacin Protocol (Amikacin pharmacy to dose) 1 ea DAILY PRN MISC PRN RX PROTOCOL 06/15/17 09:00 07/15/17 08:59 Amikacin Sulfate 800 mg/Sodium Chloride 113.2 ml @ 226.4 mls/ hr Q36H IV 06/15/17 20:00 06/22/17 19:59 Amiodarone HCl (Cordarone) 200 mg DAILY GT 06/15/17 09:00 07/15/17 08:59 Carvedilol (Coreg) 3.125 mg Q12HR GT 06/14/17 21:00 07/14/17 20:59 06/14/17 21:05 Chlorhexidine Gluconate (Anny-Hex 2%) 1 applic QHS TOPIC 06/14/17 21:00 07/14/17 20:59 06/14/17 21:07 Dextrose 1,000 ml @ 75 mls/hr [id number] IV 06/14/17 19:30 07/14/17 19:29 06/14/17 23:42 Heparin Sodium (Porcine) (Heparin 5000 units/ml) 5,000 units EVERY 12 HOURS SUBQ 06/14/17 21:00 07/14/17 20:59 06/14/17 21:07 Levetiracetam (Keppra) 500 mg Q12HR GT 06/14/17 21:00 07/14/17 20:59 06/14/17 21:11 Lorazepam (Ativan 2mg/ml 1ml) 2 mg Q2H PRN IV For Anxiety 06/14/17 19:30 06/21/17 19:29 Metronidazole (Flagyl) 500 mg Q8HR PEG 06/14/17 22:00 06/21/17 21:59 06/15/17 05:54 Morphine Sulfate (Morphine Sulfate) 4 mg Q4H PRN IVP Severe Pain (Pain Scale 7-10) 06/14/17 20:00 06/21/17 19:59 Ondansetron HCl (Zofran) 4 mg Q6H PRN IVP Nausea & Vomiting 06/14/17 20:00 07/14/17 19:59 Pantoprazole (Protonix) 40 mg Q12HR IVP 06/14/17 21:00 07/14/17 20:59 06/14/17 21:06 Polyethylene Glycol (Miralax) 17 gm DAILYPRN PRN ORAL Constipation 06/14/17 19:30 07/14/17 19:29 Sodium Hypochlorite (Dakin's Half Strength) 1 applic DAILY TOPIC 06/15/17 09:00 07/15/17 08:59 Vancomycin HCl (Vanco rx to dose) 1 ea DAILY PRN MISC PRN RX PROTOCOL 06/15/17 09:00 07/15/17 08:59 Vancomycin HCl/ Dextrose (Vancomycin/D5W) 275 ml @ 183.3 mls/ hr Q12HR@0600,1800 IVPB 06/15/17 06:00 06/20/17 05:59 06/15/17 05:54 CHRISTINE MERA Jun 15, 2017 08:18
[2017-06-15] MEDS ORDERED: Amikacin Rx to dose MISC PRN (09:00)
[2017-06-15 09:22] LABS: ANISOCYTOSIS 1+; BAND NEUTROPHILS % (MANUAL) 0 % (0-8); BASOPHILS % (MANUAL) 0 % (0-2); EOSINOPHILS % (MANUAL) 0 % (0-3); HYPOCHROMASIA 1+; LYMPHOCYTES % (MANUAL) 6 % (20-45); NEUTROPHILS % (MANUAL) 93 % (45-75); NUCLEATED RED BLOOD CELLS 1 /100 WBC; PLATELET ESTIMATE ADEQUATE; PLATELET MORPHOLOGY NORMAL; TOTAL CELLS COUNTED 100
[2017-06-15 09:40] LABS: ABG PCO2 34.7 mmHg (35.0-45.0)
[2017-06-15 09:41] LABS: ABG ALLEN TEST POSITIVE
[2017-06-15] MEDS: levETIRAcetam 500mg/5ml Liquid GT SCH ×2 (10:02→20:36)
[2017-06-15] MEDS: Amiodarone 200mg tab GT SCH (10:02)
[2017-06-15] MEDS: Pantoprazole Inj IVP SCH (10:03)
[2017-06-15] MEDS: Heparin 5000 units/ml inj SUBQ SCH ×2 (10:04→20:38)
[2017-06-15] MEDS: Dyna-Hex 2% Top Sol 8oz TOPIC SCH (10:04)
[2017-06-15] MEDS: Dakin's 0.25% (Half Strength) 16oz TOPIC SCH (10:04)
[2017-06-15] MEDS: Cefepime HCl 1 GM in D5W 55 ML IVPB SCH ×2 (10:11→20:36)
--- NOTE | 2017-06-15 10:51 | Diagnostic Imaging Report ---
Clinical history: As in header. Technique: Portable AP chest radiograph was obtained. Comparison: 06/13/17 Findings: Lung volumes are low. No focal consolidation is seen. There is otherwise no significant interval change in the interval, allowing for differences in technique and positioning. Impression: 1. Tracheostomy tube is in the appropriate position. Stable left chest pacemaker. 2. Low lung volumes. Cardiomegaly without overt pulmonary edema or pneumonia.
--- NOTE | 2017-06-15 10:55 | General Progress Note ---
Assessment/Plan Status: stable Status Narrative Na lower Assessment/Plan status: (1) Acute on chronic respiratory failure (2) Septic shock, LOW BP stablized (3) Acute hypernatremia, Free water deficit (4) Feeding by G-tube (5) EF of 30 (6) High LFTs Plan; D5w down to 50 cc Off Pressors Had Solumedrol one dose previously Antibiotics Monitor renal parameters- Prone to acute renal failure due to antibiotics continue to monitor Subjective ROS Limited/Unobtainable: Yes Allergies: Coded Allergies: No Known Allergies (Unverified , 03/07/17) Objective Last 24 Hour Vital Signs Date Time Temp Pulse Resp B/P Pulse Ox O2 Delivery O2 Flow Rate FiO2 06/15/17 10:03 84 117/80 06/15/17 09:25 84 16 30 06/15/17 08:09 96.7 85 16 102/80 100 Mechanical Ventilator 30 06/15/17 08:00 61 06/15/17 07:00 83 16 06/15/17 05:40 85 16 30 06/15/17 04:51 96.8 81 16 110/67 100 Mechanical Ventilator 06/15/17 04:00 30 06/15/17 03:33 89 06/15/17 03:01 89 16 30 06/15/17 01:19 91 16 30 06/15/17 00:00 30 06/15/17 00:00 97.9 83 20 90/67 99 Mechanical Ventilator 06/15/17 00:00 83 06/14/17 23:44 85 16 30 06/14/17 21:52 91 16 06/14/17 21:05 86 112/79 06/14/17 20:00 30 06/14/17 19:48 86 06/14/17 19:47 87 16 30 06/14/17 19:00 92 20 112/65 98 Mechanical Ventilator 06/14/17 19:00 93 06/14/17 18:00 89 18 100/65 99 Mechanical Ventilator 06/14/17 17:00 70 18 101/66 100 Mechanical Ventilator 30 06/14/17 16:30 96 16 30 06/14/17 16:00 95 06/14/17 16:00 30 06/14/17 16:00 98.5 92 20 85/53 99 Mechanical Ventilator 06/14/17 15:17 75 16 30 06/14/17 15:00 70 18 101/60 99 Mechanical Ventilator 30 06/14/17 14:14 123/76 06/14/17 14:00 79 18 123/76 100 Mechanical Ventilator 30 06/14/17 13:00 78 22 112/71 100 Mechanical Ventilator 30 06/14/17 12:50 81 18 30 06/14/17 12:35 98.7 06/14/17 12:00 81 06/14/17 12:00 30 06/14/17 12:00 98.7 79 18 105/66 100 Mechanical Ventilator 30 06/14/17 11:00 80 18 109/75 98 Mechanical Ventilator 30 Intake and Output 06/14/17 06/15/17 19:00 07:00 Intake Total 2023.5 ml 1540 ml Output Total 475 ml 600 ml Balance 1548.5 ml 940 ml Intake Oral 0 ml Free Water 200 ml 300 ml IV Total 1563.5 ml 750 ml Tube Feeding 210 ml 490 ml Other 50 ml Output Urine Total 475 ml 600 ml Stool Total 0 ml # Bowel Movements 6 Laboratory Tests 06/15/17 04:00: White Blood Count 7.9, Red Blood Count 2.98L, Hemoglobin 8.4L, Hematocrit 26.7L , Mean Corpuscular Volume 90, Mean Corpuscular Hemoglobin 28.1, Mean Corpuscular Hemoglobin Concent 31.4L, Red Cell Distribution Width 17.5H, Platelet Count 264, Mean Platelet Volume 9.0, Neutrophils (%) (Auto) , Lymphocytes (%) (Auto) , Monocytes (%) (Auto) , Eosinophils (%) (Auto) , Basophils (%) (Auto) , Differential Total Cells Counted 100, Neutrophils % ( Manual) 93H, Lymphocytes % (Manual) 6L, Monocytes % (Manual) 1, Eosinophils % ( Manual) 0, Basophils % (Manual) 0, Band Neutrophils 0, Nucleated Red Blood Cells 1, Platelet Estimate Adequate, Platelet Morphology Normal, Hypochromasia 1 +, Anisocytosis 1+, Sodium Level 151H, Potassium Level 3.5, Chloride Level 115H , Carbon Dioxide Level 23, Anion Gap 13, Blood Urea Nitrogen 54H, Creatinine 0.9 , Estimat Glomerular Filtration Rate > 60, Glucose Level 182H, Uric Acid 8.5H, Calcium Level 8.6, Phosphorus Level 5.3H, Magnesium Level 2.0, Total Bilirubin 0.2, Gamma Glutamyl Transpeptidase 145H, Aspartate Amino Transf (AST/SGOT) 38, Alanine Aminotransferase (ALT/SGPT) 156H, Alkaline Phosphatase 214H, Total Creatine Kinase 33L, C-Reactive Protein, Quantitative 1.8H, Pro-B-Type Natriuretic Peptide 4892H, Total Protein 6.4L, Albumin 2.3L, Globulin 4.1, Albumin/Globulin Ratio 0.5L 06/15/17 09:30: Arterial Blood pH 7.430, Arterial Blood Partial Pressure CO2 34.7L, Arterial Blood Partial Pressure O2 127.0H, Arterial Blood HCO3 22.9, Arterial Blood Oxygen Saturation 97.6, Arterial Blood Base Excess -1.0, Son Test Positive Height (Feet): 5 Height (Inches): 7.00 Weight (Pounds): 110 General Appearance: no apparent distress Objective PE not changed CRICKET MITCHELL Jun 15, 2017 10:55
--- NOTE | 2017-06-15 11:35 | Pulmonology Progress Note ---
Assessment/Plan Problems: (1) Acute on chronic respiratory failure (2) Septic shock (3) Acute hypernatremia (4) Feeding by G-tube (5) EF of 30 Respiratory: monitor respiratory rate, adjust FIO2 Cardiac: continue to monitor HR/BP Renal: F/U I&O Infectious Disease: continue antibiotics Gastrointestinal: continue feedings/current rate, hold feedings Endocrine: monitor blood sugar, check TSH, check HgA1C Neurologic: PRN Ativan Prophylaxis: Protonix Notes Reviewed: cardio, renal Discussed with: consultants, correctional casework specialist, family member Subjective ROS Limited/Unobtainable: No Constitutional: Reports: no symptoms Respiratory: Reports: no symptoms Allergies: Coded Allergies: No Known Allergies (Unverified , 03/07/17) Objective Last 24 Hour Vital Signs Date Time Temp Pulse Resp B/P Pulse Ox O2 Delivery O2 Flow Rate FiO2 06/15/17 11:28 86 19 30 06/15/17 10:03 84 117/80 06/15/17 09:25 84 16 30 06/15/17 09:00 30 06/15/17 08:09 96.7 85 16 102/80 100 Mechanical Ventilator 30 06/15/17 08:00 30 06/15/17 08:00 61 06/15/17 07:00 83 16 30 06/15/17 05:40 85 16 30 06/15/17 04:51 96.8 81 16 110/67 100 Mechanical Ventilator 06/15/17 04:00 30 06/15/17 03:33 89 06/15/17 03:01 89 16 30 06/15/17 01:19 91 16 30 06/15/17 00:00 30 06/15/17 00:00 97.9 83 20 90/67 99 Mechanical Ventilator 30 06/15/17 00:00 83 06/14/17 23:44 85 16 30 06/14/17 21:52 91 16 30 06/14/17 21:05 86 112/79 06/14/17 20:00 30 06/14/17 19:48 86 06/14/17 19:47 87 16 30 06/14/17 19:00 92 20 112/65 98 Mechanical Ventilator 30 06/14/17 19:00 93 06/14/17 18:00 89 18 100/65 99 Mechanical Ventilator 30 06/14/17 17:00 70 18 101/66 100 Mechanical Ventilator 30 06/14/17 16:30 96 16 30 06/14/17 16:00 95 06/14/17 16:00 30 06/14/17 16:00 98.5 92 20 85/53 99 Mechanical Ventilator 30 06/14/17 15:17 75 16 30 06/14/17 15:00 70 18 101/60 99 Mechanical Ventilator 30 06/14/17 14:14 123/76 06/14/17 14:00 79 18 123/76 100 Mechanical Ventilator 30 06/14/17 13:00 78 22 112/71 100 Mechanical Ventilator 30 06/14/17 12:50 81 18 30 06/14/17 12:35 98.7 06/14/17 12:00 81 06/14/17 12:00 30 06/14/17 12:00 98.7 79 18 105/66 100 Mechanical Ventilator 30 Intake and Output 06/14/17 06/15/17 19:00 07:00 Intake Total 2023.5 ml 1540 ml Output Total 475 ml 600 ml Balance 1548.5 ml 940 ml Intake Oral 0 ml Free Water 200 ml 300 ml IV Total 1563.5 ml 750 ml Tube Feeding 210 ml 490 ml Other 50 ml Output Urine Total 475 ml 600 ml Stool Total 0 ml # Bowel Movements 6 General Appearance: cachetic HEENT: normocephalic, anicteric, status post trach Respiratory/Chest: chest wall non-tender, lungs clear Cardiovascular: normal rate, regular rhythm Abdomen: normal bowel sounds, soft, non tender, no organomegaly Genitourinary: normal external genitalia Skin: no rash, no ulcers Musculoskeletal: normal muscle bulk Microbiology Date/Time Source Procedure Growth Status 06/12/17 12:55 Blood Blood Culture - Preliminary NO GROWTH AFTER 48 HOURS Resulted 06/12/17 12:40 Blood Blood Culture - Preliminary NO GROWTH AFTER 48 HOURS Resulted 06/12/17 12:47 Nasal Nares MRSA Culture - Final NO METHICILLIN RESISTANT STAPH AUREUS... Complete 06/13/17 06:05 Stool Clostridium difficile Toxin Assay - Final Complete 06/12/17 22:00 Sacral Wound Gram Stain - Final Resulted 06/12/17 22:00 Wound Culture - Preliminary Acinetobacter Baumannii Complx Gram Negative Bacillus 2 Resulted Laboratory Tests 06/15/17 04:00: White Blood Count 7.9, Red Blood Count 2.98L, Hemoglobin 8.4L, Hematocrit 26.7L , Mean Corpuscular Volume 90, Mean Corpuscular Hemoglobin 28.1, Mean Corpuscular Hemoglobin Concent 31.4L, Red Cell Distribution Width 17.5H, Platelet Count 264, Mean Platelet Volume 9.0, Neutrophils (%) (Auto) , Lymphocytes (%) (Auto) , Monocytes (%) (Auto) , Eosinophils (%) (Auto) , Basophils (%) (Auto) , Differential Total Cells Counted 100, Neutrophils % ( Manual) 93H, Lymphocytes % (Manual) 6L, Monocytes % (Manual) 1, Eosinophils % ( Manual) 0, Basophils % (Manual) 0, Band Neutrophils 0, Nucleated Red Blood Cells 1, Platelet Estimate Adequate, Platelet Morphology Normal, Hypochromasia 1 +, Anisocytosis 1+, Sodium Level 151H, Potassium Level 3.5, Chloride Level 115H , Carbon Dioxide Level 23, Anion Gap 13, Blood Urea Nitrogen 54H, Creatinine 0.9 , Estimat Glomerular Filtration Rate > 60, Glucose Level 182H, Uric Acid 8.5H, Calcium Level 8.6, Phosphorus Level 5.3H, Magnesium Level 2.0, Total Bilirubin 0.2, Gamma Glutamyl Transpeptidase 145H, Aspartate Amino Transf (AST/SGOT) 38, Alanine Aminotransferase (ALT/SGPT) 156H, Alkaline Phosphatase 214H, Total Creatine Kinase 33L, C-Reactive Protein, Quantitative 1.8H, Pro-B-Type Natriuretic Peptide 4892H, Total Protein 6.4L, Albumin 2.3L, Globulin 4.1, Albumin/Globulin Ratio 0.5L 06/15/17 09:30: Arterial Blood pH 7.430, Arterial Blood Partial Pressure CO2 34.7L, Arterial Blood Partial Pressure O2 127.0H, Arterial Blood HCO3 22.9, Arterial Blood Oxygen Saturation 97.6, Arterial Blood Base Excess -1.0, Son Test Positive Current Medications Medications (Trade) Dose Ordered Sig/Tameka Route PRN Reason Start Time Stop Time Status Last Admin Dose Admin Acetaminophen (Tylenol) 650 mg Q4H PRN ORAL fever 06/14/17 19:30 07/14/17 19:29 Albuterol/ Ipratropium (DuoNeb 0.5-3(2.5)mg/3ml) 3 ml Q4H PRN HHN Shortness of Breath 06/14/17 19:30 83/17 19:29 Amiodarone HCl (Cordarone) 200 mg DAILY GT 06/15/17 09:00 07/15/17 08:59 06/15/17 10:02 Carvedilol (Coreg) 3.125 mg Q12HR GT 06/14/17 21:00 07/14/17 20:59 06/15/17 10:03 Cefepime HCl 1 gm/ Dextrose 55 ml @ 110 mls/hr EVERY 12 HOURS IVPB 06/15/17 09:00 06/22/17 08:59 06/15/17 10:11 Chlorhexidine Gluconate 1 applic 1 applic DAILY TOPIC 06/15/17 09:00 07/15/17 08:59 06/15/17 10:04 Dextrose (D5W 1000ml) 1,000 ml @ 50 mls/hr Q20H IV 06/15/17 12:00 07/15/17 11:59 Heparin Sodium (Porcine) (Heparin 5000 units/ml) 5,000 units EVERY 12 HOURS SUBQ 06/14/17 21:00 07/14/17 20:59 06/15/17 10:04 Levetiracetam (Keppra) 500 mg Q12HR GT 06/14/17 21:00 07/14/17 20:59 06/15/17 10:02 Lorazepam (Ativan 2mg/ml 1ml) 2 mg Q2H PRN IV For Anxiety 06/14/17 19:30 06/21/17 19:29 Metronidazole (Flagyl) 500 mg Q8HR PEG 06/14/17 22:00 06/21/17 21:59 06/15/17 05:54 Morphine Sulfate (Morphine Sulfate) 4 mg Q4H PRN IVP Severe Pain (Pain Scale 7-10) 06/14/17 20:00 06/21/17 19:59 Ondansetron HCl (Zofran) 4 mg Q6H PRN IVP Nausea & Vomiting 06/14/17 20:00 07/14/17 19:59 Pantoprazole (Protonix) 40 mg DAILY IVP 06/16/17 09:00 07/16/17 08:59 Polyethylene Glycol (Miralax) 17 gm DAILYPRN PRN ORAL Constipation 06/14/17 19:30 07/14/17 19:29 Sodium Hypochlorite (Dakin's Half Strength) 1 applic DAILY TOPIC 06/15/17 09:00 07/15/17 08:59 06/15/17 10:04 Vancomycin HCl (Vanco rx to dose) 1 ea DAILY PRN MISC PRN RX PROTOCOL 06/15/17 09:00 07/15/17 08:59 Vancomycin HCl/ Dextrose (Vancomycin/D5W) 275 ml @ 183.3 mls/ hr Q12HR@0600,1800 IVPB 06/15/17 06:00 06/20/17 05:59 06/15/17 05:54 ODETTE SMILEY Jun 15, 2017 11:35
[2017-06-15 11:57] VITALS: BP 110/75
[2017-06-15] MEDS ORDERED: NS 275ml ONE ×2 (13:58)
[2017-06-15] MEDS ORDERED: Tubing IV Secondary IV ONE (13:58)
[2017-06-15 16:00] VITALS: BP 105/72
[2017-06-15 20:00] VITALS: BP 117/78
[2017-06-15] MEDS ORDERED: Amikacin 800 MG in NS 110 ML IV SCH (20:00)
[2017-06-16] VITALS (7 sets, daily range): BP systolic 103–136; BP diastolic 56–91
[2017-06-16 04:47] LABS: BASOPHILS % (AUTO) 0.2 % (0.0-2.0); EOSINOPHILS % (AUTO) 0.1 % (0.0-3.0); LYMPHOCYTES % (AUTO) 16.3 % (20.0-45.0); MEAN CORPUSCULAR HEMOGLOBIN 28.6 PG (27.0-31.0); MEAN CORPUSCULAR HGB CONC 32.4 G/DL (32.0-36.0); MEAN CORPUSCULAR VOLUME 88 FL (80-99); MEAN PLATELET VOLUME 8.8 FL (6.5-10.1); MONOCYTES % (AUTO) 6.8 % (1.0-10.0); NEUTROPHILS % (AUTO) 76.6 % (45.0-75.0); PLATELET COUNT 254 K/UL (150-450); RED BLOOD COUNT 2.83 M/UL (4.70-6.10); RED CELL DISTRIBUTION WIDTH 17.1 % (11.6-14.8); WHITE BLOOD COUNT 6.9 K/UL (4.8-10.8)
[2017-06-16 05:20] LABS: ALANINE AMINOTRANSFERASE 108 U/L (3-41); ALBUMIN/GLOBULIN RATIO 0.5 (1.0-2.7); ANION GAP 12 (5-15); ASPARTATE AMINO TRANSFERASE 32 U/L (5-40); CALCIUM 7.9 mg/dL (8.6-10.2); CARBON DIOXIDE 23 mEQ/L (20-30); CHLORIDE 111 mEQ/L (98-107); CREATININE 0.7 mg/dL (0.7-1.2); GLOMERULAR FILTRATION RATE > 60 mL/min (>60); HEMOLYSIS 3; SODIUM 146 mEQ/L (135-145); TOTAL PROTEIN 5.7 g/dL (6.6-8.7)
[2017-06-16 05:25] LABS: CRP QUANT 0.6 mg/dL (< 0.5); MAGNESIUM 1.9 mg/dL (1.7-2.5); PHOSPHORUS 4.2 mg/dL (2.5-4.8); URIC ACID 7.7 mg/dL (3.0-7.5)
[2017-06-16] MEDS: Vancomycin 750 MG in D5W 275 ML IVPB SCH ×2 (06:05→18:16)
[2017-06-16] MEDS: metroNIDAZOLE 500mg tab PEG SCH ×2 (06:05→13:32)
--- NOTE | 2017-06-16 08:03 | Diagnostic Imaging Report ---
Indication: DYSPNEA Technique: One view of the chest Comparison: 06/12/2017 Findings: Stable satisfactory position of tracheostomy. Left chest AICD remains. Heart size is normal. Lungs and pleural spaces remain clear. No significant interim change Impression: Unchanged, over one day, findings as above.
[2017-06-16] MEDS: Cefepime HCl 1 GM in D5W 55 ML IVPB SCH (08:29)
[2017-06-16] MEDS: levETIRAcetam 500mg/5ml Liquid GT SCH (08:29)
[2017-06-16] MEDS ORDERED: KCl 10% 40mEq/30ml liquid GT ONE (08:30)
[2017-06-16] MEDS: Amiodarone 200mg tab GT SCH (08:30)
--- NOTE | 2017-06-16 08:59 | Infectious Diseases Prog Note ---
Assessment/Plan Assessment/Plan ASSESSMENT: 57 y/o male with: // Septic shock SP - off pressors ?source - cultures NGTD, AM cortisol, lactate WNL - TTE(-) SBE poor quality study - CT C/A/P 05/17: No evidence of abscess , Pulmonary bibasal parenchymal consolidation // Stage IV sacral decubitus, not grossly infected - surveillance WCx MDR-ACB, GNR #2, C.albicans - h/o polymicrobial MDR ( KPC and ACB, strep, CONS ) colonization // Chronic sacrococcygeal osteomyelitis // Elevated LFTs / HCV Ab+ improved - US 06/13: Gallbladder wall thickening. No definite gallstones. Possibly edema due to hemodynamic derangement or adjacent hepatocellular disease. Acute acalculous cholecystitis not completely excludable, however. If there is high clinical suspicion, consider further evaluation with nuclear medicine hepatobiliary imaging - CT A/P 05/17: Liver, gallbladder no obvious acute abnormality. // Diarrhea - negative C.difficile // h/o recurrent HCAP / VAP - SCx MDR - ACB , KPC SP Rx. No evidence of recurrence - CXR 06/12: No evidence of acute disease, unchanged. Stable chronic changes - h/o Provid a+ XDR PSA, MDR-ACB, KPC // Negative HIV // Leukocytosis - resolved // Fever - resolved Acute on chronic encephalopathy ?septic vs metabolic - h/o cardiac arrest, anoxic encephalopathy Severe hypernatremia Cachexia r/o occult malignancy - elevated CEA - PSA WNL Acute on chronic anemia Sinus tachycardia Chronic VDRF SP trach, PEG Cardiomyopathy SP defibrillator placement Paroxysmal atrial fibrillation [place] resident MDRO colonized NKDA Full Code ( previous DNR ) PLAN: continue empiric IV vancomcycin d# 5, cefepime d# 2 ( ABX d# / ) ( 06/15 SP amikacin d# 4 ) ( 06/14 SP flagyl d# 2 ) ( 06/12 SP invanz x1 ) ( 05/27 SP Tygacil and Colistin d# , Merrem d# ) ( 05/15 SP IV vancomycin, Zosyn d# 5 ) ( SP Merrem and Colistin INH d# ) ( 03/13 SP vancomycin and Zosyn d# 5 ) f/u final cultures Monitor CBC, temperatures Monitor CMP Monitor CXR vent support, trach care, aspiration precautions wound care Subjective Allergies: Coded Allergies: No Known Allergies (Unverified , 03/07/17) Subjective remains afebrile on vent Objective Vital Signs Last 24 Hour Vital Signs Date Time Temp Pulse Resp B/P Pulse Ox O2 Delivery O2 Flow Rate FiO2 06/16/17 08:43 90 18 30 06/16/17 08:30 97 111/77 06/16/17 06:38 91 18 30 06/16/17 05:20 89 17 30 06/16/17 04:00 30 06/16/17 04:00 97.2 85 17 108/64 100 Mechanical Ventilator 06/16/17 03:45 85 06/16/17 03:11 79 18 30 06/16/17 01:01 86 17 30 06/16/17 00:00 97.0 81 18 112/74 100 Mechanical Ventilator 06/16/17 00:00 81 06/16/17 00:00 30 06/15/17 22:38 83 17 30 06/15/17 21:16 88 17 30 06/15/17 20:36 102 117/78 06/15/17 20:00 96.0 102 18 117/78 100 Mechanical Ventilator 06/15/17 20:00 30 06/15/17 20:00 89 06/15/17 18:31 87 19 30 06/15/17 16:43 89 17 30 06/15/17 16:12 89 06/15/17 16:00 96.8 89 16 105/72 100 Mechanical Ventilator 06/15/17 16:00 30 06/15/17 15:21 93 22 30 06/15/17 13:26 92 18 30 06/15/17 11:57 78 06/15/17 11:57 97.0 82 16 110/75 100 Mechanical Ventilator 06/15/17 11:28 86 19 30 06/15/17 10:03 84 117/80 06/15/17 09:25 84 16 30 06/15/17 09:00 30 Height (Feet): 5 Height (Inches): 7.00 Weight (Pounds): 114 General Appearance: no acute distress HEENT: status post trach Respiratory/Chest: decreased breath sounds Cardiovascular: normal rate, regular rhythm Abdomen: normal bowel sounds, soft, non tender, non distended Laboratory Tests Test 7/30/17 09:30 06/16/17 04:00 Arterial Blood pH 7.430 (7.350-7.450) Arterial Blood Partial Pressure CO2 34.7 mmHg (35.0-45.0) L Arterial Blood Partial Pressure O2 127.0 mmHg (75.0-100.0) H Arterial Blood HCO3 22.9 mmol/L (22.0-26.0) Arterial Blood Oxygen Saturation 97.6 % (92.0-98.0) Arterial Blood Base Excess -1.0 Son Test Positive White Blood Count 6.9 K/UL (4.8-10.8) Red Blood Count 2.83 M/UL (4.70-6.10) L Hemoglobin 8.1 G/DL (14.2-18.0) L Hematocrit 25.0 % (42.0-52.0) L Mean Corpuscular Volume 88 FL (80-99) Mean Corpuscular Hemoglobin 28.6 PG (27.0-31.0) Mean Corpuscular Hemoglobin Concent 32.4 G/DL (32.0-36.0) Red Cell Distribution Width 17.1 % (11.6-14.8) H Platelet Count 254 K/UL (150-450) Mean Platelet Volume 8.8 FL (6.5-10.1) Neutrophils (%) (Auto) 76.6 % (45.0-75.0) H Lymphocytes (%) (Auto) 16.3 % (20.0-45.0) L Monocytes (%) (Auto) 6.8 % (1.0-10.0) Eosinophils (%) (Auto) 0.1 % (0.0-3.0) Basophils (%) (Auto) 0.2 % (0.0-2.0) Sodium Level 146 mEQ/L (135-145) H Potassium Level 3.0 mEQ/L (3.4-4.9) L Chloride Level 111 mEQ/L (98-107) H Carbon Dioxide Level 23 mEQ/L (20-30) Anion Gap 12 (5-15) Blood Urea Nitrogen 52 mg/dL (7-23) H Creatinine 0.7 mg/dL (0.7-1.2) Estimat Glomerular Filtration Rate > 60 mL/min (>60) Glucose Level 158 mg/dL (74-106) H Uric Acid 7.7 mg/dL (3.0-7.5) H Calcium Level 7.9 mg/dL (8.6-10.2) L Phosphorus Level 4.2 mg/dL (2.5-4.8) Magnesium Level 1.9 mg/dL (1.7-2.5) Total Bilirubin < 0.2 mg/dL (0.0-1.2) Aspartate Amino Transf (AST/SGOT) 32 U/L (5-40) Alanine Aminotransferase (ALT/SGPT) 108 U/L (3-41) H Alkaline Phosphatase 195 U/L (40-129) H C-Reactive Protein, Quantitative 0.6 mg/dL (< 0.5) H Pro-B-Type Natriuretic Peptide 3818 pg/mL (0-125) H Total Protein 5.7 g/dL (6.6-8.7) L Albumin 2.1 g/dL (3.5-5.2) L Globulin 3.6 g/dL Albumin/Globulin Ratio 0.5 (1.0-2.7) L Current Medications Medications (Trade) Dose Ordered Sig/Tameka Route PRN Reason Start Time Stop Time Status Last Admin Dose Admin Acetaminophen (Tylenol) 650 mg Q4H PRN ORAL fever 06/14/17 19:30 07/14/17 19:29 Albuterol/ Ipratropium (DuoNeb 0.5-3(2.5)mg/3ml) 3 ml Q4H PRN HHN Shortness of Breath 06/14/17 19:30 06/19/17 19:29 Amiodarone HCl (Cordarone) 200 mg DAILY GT 06/15/17 09:00 07/15/17 08:59 06/16/17 08:30 Carvedilol (Coreg) 3.125 mg Q12HR GT 06/14/17 21:00 07/14/17 20:59 06/16/17 08:30 Cefepime HCl 1 gm/ Dextrose 55 ml @ 110 mls/hr EVERY 12 HOURS IVPB 06/15/17 09:00 06/22/17 08:59 06/16/17 08:29 Chlorhexidine Gluconate 1 applic 1 applic DAILY TOPIC 06/15/17 09:00 07/15/17 08:59 06/15/17 10:04 Dextrose (D5W 1000ml) 1,000 ml @ 50 mls/hr Q20H IV 06/15/17 12:00 07/15/17 11:59 06/16/17 06:33 Heparin Sodium (Porcine) (Heparin 5000 units/ml) 5,000 units EVERY 12 HOURS SUBQ 06/14/17 21:00 07/14/17 20:59 06/15/17 20:38 Levetiracetam (Keppra) 500 mg Q12HR GT 06/14/17 21:00 07/14/17 20:59 06/16/17 08:29 Lorazepam (Ativan 2mg/ml 1ml) 2 mg Q2H PRN IV For Anxiety 06/14/17 19:30 06/21/17 19:29 Metronidazole (Flagyl) 500 mg Q8HR PEG 06/14/17 22:00 06/21/17 21:59 06/16/17 06:05 Morphine Sulfate (Morphine Sulfate) 4 mg Q4H PRN IVP Severe Pain (Pain Scale 7-10) 06/14/17 20:00 06/21/17 19:59 Ondansetron HCl (Zofran) 4 mg Q6H PRN IVP Nausea & Vomiting 06/14/17 20:00 07/14/17 19:59 Pantoprazole (Protonix) 40 mg DAILY IVP 06/16/17 09:00 07/16/17 08:59 06/16/17 08:29 Polyethylene Glycol (Miralax) 17 gm DAILYPRN PRN ORAL Constipation 06/14/17 19:30 07/14/17 19:29 Sodium Hypochlorite (Dakin's Half Strength) 1 applic DAILY TOPIC 06/15/17 09:00 07/15/17 08:59 06/15/17 10:04 Vancomycin HCl (Vanco rx to dose) 1 ea DAILY PRN MISC PRN RX PROTOCOL 06/15/17 09:00 07/15/17 08:59 Vancomycin HCl/ Dextrose (Vancomycin/D5W) 275 ml @ 183.3 mls/ hr Q12HR@0600,1800 IVPB 06/15/17 06:00 06/20/17 05:59 06/16/17 06:05 ROXANNE BELLO Jun 16, 2017 08:59
[2017-06-16] MEDS ORDERED: Pantoprazole Inj IVP SCH (09:00)
[2017-06-16] MEDS: Heparin 5000 units/ml inj SUBQ SCH (09:14)
[2017-06-16] MEDS: Dakin's 0.25% (Half Strength) 16oz TOPIC SCH (09:14)
[2017-06-16] MEDS: Dyna-Hex 2% Top Sol 8oz TOPIC SCH (09:14)
--- NOTE | 2017-06-16 10:56 | Pulmonology Progress Note ---
Assessment/Plan Problems: (1) Acute on chronic respiratory failure (2) Septic shock (3) Acute hypernatremia (4) Feeding by G-tube (5) EF of 30 Assessment/Plan: pt needs blood transfusion, pts sisters were called by the nurse, none of them responding. pt can't sign the consent himself either. Respiratory: monitor respiratory rate, CXR Cardiac: continue to monitor HR/BP Renal: F/U I&O, keep IV fluid Infectious Disease: check cultures, continue antibiotics Gastrointestinal: continue feedings/current rate Endocrine: monitor blood sugar Hematologic: monitor H/H Neurologic: PRN Ativan, PRN Morphine Prophylaxis: Protonix Disposition: keep in ICU Time Spent (Minutes): 30 Subjective ROS Limited/Unobtainable: No Constitutional: Reports: no symptoms HEENT: Repors: no symptoms Respiratory: Reports: no symptoms Allergies: Coded Allergies: No Known Allergies (Unverified , 03/07/17) Objective Last 24 Hour Vital Signs Date Time Temp Pulse Resp B/P Pulse Ox O2 Delivery O2 Flow Rate FiO2 06/16/17 08:43 90 18 30 06/16/17 08:30 97 111/77 06/16/17 08:01 97.3 97 17 119/77 100 Mechanical Ventilator 06/16/17 08:00 30 06/16/17 08:00 96 06/16/17 06:38 91 18 30 06/16/17 05:20 89 17 30 06/16/17 04:00 30 06/16/17 04:00 97.2 85 17 108/64 100 Mechanical Ventilator 06/16/17 03:45 85 06/16/17 03:11 79 18 30 06/16/17 01:01 86 17 30 06/16/17 00:00 97.0 81 18 112/74 100 Mechanical Ventilator 06/16/17 00:00 81 06/16/17 00:00 30 06/15/17 22:38 83 17 30 06/15/17 21:16 88 17 30 06/15/17 20:36 102 117/78 06/15/17 20:00 96.0 102 18 117/78 100 Mechanical Ventilator 30 06/15/17 20:00 30 06/15/17 20:00 89 06/15/17 18:31 87 19 30 06/15/17 16:43 89 17 30 06/15/17 16:12 89 06/15/17 16:00 96.8 89 16 105/72 100 Mechanical Ventilator 30 06/15/17 16:00 30 06/15/17 15:21 93 22 30 06/15/17 13:26 92 18 30 06/15/17 11:57 78 06/15/17 11:57 97.0 82 16 110/75 100 Mechanical Ventilator 30 06/15/17 11:28 86 19 30 Intake and Output 06/15/17 06/16/17 19:00 07:00 Intake Total 1580 ml 1638.3 ml Output Total 450 ml 400 ml Balance 1130 ml 1238.3 ml Free Water 300 ml 200 ml IV Total 680 ml 838.3 ml Tube Feeding 600 ml 600 ml Output Urine Total 450 ml 300 ml Stool Total 100 ml # Bowel Movements 100 General Appearance: WD/WN HEENT: normocephalic, anicteric Respiratory/Chest: chest wall non-tender, lungs clear Cardiovascular: normal peripheral pulses, normal rate, regular rhythm Abdomen: normal bowel sounds, soft, non tender Genitourinary: normal external genitalia Extremities: no clubbing Skin: no lesions Laboratory Tests 06/16/17 04:00: White Blood Count 6.9, Red Blood Count 2.83L, Hemoglobin 8.1L, Hematocrit 25.0L , Mean Corpuscular Volume 88, Mean Corpuscular Hemoglobin 28.6, Mean Corpuscular Hemoglobin Concent 32.4, Red Cell Distribution Width 17.1H, Platelet Count 254, Mean Platelet Volume 8.8, Neutrophils (%) (Auto) 76.6H, Lymphocytes (%) (Auto) 16.3L, Monocytes (%) (Auto) 6.8, Eosinophils (%) (Auto) 0.1, Basophils (%) (Auto) 0.2, Sodium Level 146H, Potassium Level 3.0L, Chloride Level 111H, Carbon Dioxide Level 23, Anion Gap 12, Blood Urea Nitrogen 52H, Creatinine 0.7, Estimat Glomerular Filtration Rate > 60, Glucose Level 158H , Uric Acid 7.7H, Calcium Level 7.9L, Phosphorus Level 4.2, Magnesium Level 1.9 , Total Bilirubin < 0.2, Aspartate Amino Transf (AST/SGOT) 32, Alanine Aminotransferase (ALT/SGPT) 108H, Alkaline Phosphatase 195H, C-Reactive Protein , Quantitative 0.6H, Pro-B-Type Natriuretic Peptide 3818H, Total Protein 5.7L, Albumin 2.1L, Globulin 3.6, Albumin/Globulin Ratio 0.5L Current Medications Medications (Trade) Dose Ordered Sig/Tameka Route PRN Reason Start Time Stop Time Status Last Admin Dose Admin Acetaminophen (Tylenol) 650 mg Q4H PRN ORAL fever 06/14/17 19:30 07/14/17 19:29 Albuterol/ Ipratropium (DuoNeb 0.5-3(2.5)mg/3ml) 3 ml Q4H PRN HHN Shortness of Breath 06/14/17 19:30 06/19/17 19:29 Amiodarone HCl (Cordarone) 200 mg DAILY GT 06/15/17 09:00 07/15/17 08:59 06/16/17 08:30 Carvedilol (Coreg) 3.125 mg Q12HR GT 06/14/17 21:00 07/14/17 20:59 06/16/17 08:30 Cefepime HCl 1 gm/ Dextrose 55 ml @ 110 mls/hr EVERY 12 HOURS IVPB 06/15/17 09:00 06/22/17 08:59 06/16/17 08:29 Chlorhexidine Gluconate 1 applic 1 applic DAILY TOPIC 06/15/17 09:00 07/15/17 08:59 06/16/17 09:14 Dextrose (D5W 1000ml) 1,000 ml @ 50 mls/hr Q20H IV 06/15/17 12:00 07/15/17 11:59 06/16/17 06:33 Heparin Sodium (Porcine) (Heparin 5000 units/ml) 5,000 units EVERY 12 HOURS SUBQ 06/14/17 21:00 07/14/17 20:59 06/16/17 09:14 Levetiracetam (Keppra) 500 mg Q12HR GT 06/14/17 21:00 07/14/17 20:59 06/16/17 08:29 Lorazepam (Ativan 2mg/ml 1ml) 2 mg Q2H PRN IV For Anxiety 06/14/17 19:30 06/21/17 19:29 Metronidazole (Flagyl) 500 mg Q8HR PEG 06/14/17 22:00 06/21/17 21:59 06/16/17 06:05 Morphine Sulfate (Morphine Sulfate) 4 mg Q4H PRN IVP Severe Pain (Pain Scale 7-10) 06/14/17 20:00 06/21/17 19:59 Ondansetron HCl (Zofran) 4 mg Q6H PRN IVP Nausea & Vomiting 06/14/17 20:00 07/14/17 19:59 Pantoprazole 40 mg 40 mg DAILY IVP 06/16/17 09:00 07/16/17 08:59 06/16/17 08:29 Polyethylene Glycol (Miralax) 17 gm DAILYPRN PRN ORAL Constipation 06/14/17 19:30 07/14/17 19:29 Potassium Chloride (KCl 20mEq/100ml Premix) 100 ml @ 50 mls/hr Q2H IVPB 06/16/17 11:00 06/16/17 14:59 Sodium Hypochlorite (Dakin's Half Strength) 1 applic DAILY TOPIC 06/15/17 09:00 07/15/17 08:59 06/16/17 09:14 Vancomycin HCl (Vanco rx to dose) 1 ea DAILY PRN MISC PRN RX PROTOCOL 06/15/17 09:00 07/15/17 08:59 Vancomycin HCl/ Dextrose (Vancomycin/D5W) 275 ml @ 183.3 mls/ hr Q12HR@0600,1800 IVPB 06/15/17 06:00 06/20/17 05:59 06/16/17 06:05 ODETTE SMILEY Jun 16, 2017 10:56
--- NOTE | 2017-06-16 11:13 | Diagnostic Imaging Report ---
Indication: DYSPNEA Technique: One view of the chest Comparison: 06/15/2017 Findings: Tracheostomy, left chest pacemaker, left chest AICD remain. Increased interstitial and alveolar opacities are seen in the right mid and lower lung, left retrocardiac region. The pleural spaces are clear. Impression: Increasing bilateral parenchymal disease, over one day, as described
--- NOTE | 2017-06-16 11:38 | General Progress Note ---
Assessment/Plan Status: stable Assessment/Plan status: (1) Acute on chronic respiratory failure (2) Septic shock, LOW BP stablized (3) Acute hypernatremia, Free water deficit (4) Feeding by G-tube (5) EF of 30 (6) High LFTs Plan; D5w down to 50 cc K supplement Had Solumedrol one dose previously Antibiotics Monitor renal parameters- Prone to acute renal failure due to antibiotics continue to monitor Subjective ROS Limited/Unobtainable: Yes Allergies: Coded Allergies: No Known Allergies (Unverified , 03/07/17) Objective Last 24 Hour Vital Signs Date Time Temp Pulse Resp B/P Pulse Ox O2 Delivery O2 Flow Rate FiO2 06/16/17 11:09 88 18 30 06/16/17 08:43 90 18 06/16/17 08:30 97 111/77 06/16/17 08:01 97.3 97 17 119/77 100 Mechanical Ventilator 06/16/17 08:00 30 06/16/17 08:00 96 06/16/17 06:38 91 18 06/16/17 05:20 89 17 30 06/16/17 04:00 30 06/16/17 04:00 97.2 85 17 108/64 100 Mechanical Ventilator 06/16/17 03:45 85 06/16/17 03:11 79 18 30 06/16/17 01:01 86 17 30 06/16/17 00:00 97.0 81 18 112/74 100 Mechanical Ventilator 06/16/17 00:00 81 06/16/17 00:00 30 06/15/17 22:38 83 17 30 06/15/17 21:16 88 17 30 06/15/17 20:36 102 117/78 06/15/17 20:00 96.0 102 18 117/78 100 Mechanical Ventilator 06/15/17 20:00 30 06/15/17 20:00 89 06/15/17 18:31 87 19 30 06/15/17 16:43 89 17 30 06/15/17 16:12 89 06/15/17 16:00 96.8 89 16 105/72 100 Mechanical Ventilator 30 06/15/17 16:00 30 06/15/17 15:21 93 22 30 06/15/17 13:26 92 18 30 06/15/17 11:57 78 06/15/17 11:57 97.0 82 16 110/75 100 Mechanical Ventilator 30 Intake and Output 06/15/17 06/16/17 19:00 07:00 Intake Total 1580 ml 1638.3 ml Output Total 450 ml 400 ml Balance 1130 ml 1238.3 ml Free Water 300 ml 200 ml IV Total 680 ml 838.3 ml Tube Feeding 600 ml 600 ml Output Urine Total 450 ml 300 ml Stool Total 100 ml # Bowel Movements 100 Laboratory Tests 06/16/17 04:00: White Blood Count 6.9, Red Blood Count 2.83L, Hemoglobin 8.1L, Hematocrit 25.0L , Mean Corpuscular Volume 88, Mean Corpuscular Hemoglobin 28.6, Mean Corpuscular Hemoglobin Concent 32.4, Red Cell Distribution Width 17.1H, Platelet Count 254, Mean Platelet Volume 8.8, Neutrophils (%) (Auto) 76.6H, Lymphocytes (%) (Auto) 16.3L, Monocytes (%) (Auto) 6.8, Eosinophils (%) (Auto) 0.1, Basophils (%) (Auto) 0.2, Sodium Level 146H, Potassium Level 3.0L, Chloride Level 111H, Carbon Dioxide Level 23, Anion Gap 12, Blood Urea Nitrogen 52H, Creatinine 0.7, Estimat Glomerular Filtration Rate > 60, Glucose Level 158H , Uric Acid 7.7H, Calcium Level 7.9L, Phosphorus Level 4.2, Magnesium Level 1.9 , Total Bilirubin < 0.2, Aspartate Amino Transf (AST/SGOT) 32, Alanine Aminotransferase (ALT/SGPT) 108H, Alkaline Phosphatase 195H, C-Reactive Protein , Quantitative 0.6H, Pro-B-Type Natriuretic Peptide 3818H, Total Protein 5.7L, Albumin 2.1L, Globulin 3.6, Albumin/Globulin Ratio 0.5L Height (Feet): 5 Height (Inches): 7.00 Weight (Pounds): 114 General Appearance: no apparent distress Objective PE not changed CRICKET MITCHELL Jun 16, 2017 11:38
[2017-06-16] MEDS ORDERED: Tubing IV Secondary IV ONE (14:16)
[2017-06-16] MEDS ORDERED: NS 275ml ONE ×2 (14:16→19:04)
[2017-06-16] MEDS ORDERED: Tubing Blood Filter IV ONE (19:04)
[2017-06-16] MEDS ORDERED: Tubing IV Blood Pump IV ONE (19:04)
--- NOTE | 2017-06-17 09:57 | Discharge Summary ---
Discharge Summary Hospital Course Date of Admission Jun 12, 2017 at 14:10 Date of Discharge Jun 16, 2017 at 19:05 Admitting Diagnosis sepsis HPI Yamil Wells is a 57 year old male who was admitted on Jun 12, 2017 at 14:10 for Sepsis Hospital Course dc summary #[id number] Discharge Condition Upon Discharge: stable Discharge Disposition Patient was discharged to SNF Discharge Diagnoses: Discharge Instructions Discharge Instructions Special Instructions I have been assigned to complete a D/C Summary on this account. I was not involved in the patient management Chiara Perales NP ([place]) Jun 17, 2017 09:57
--- NOTE | 2017-06-17 13:20 | Cardiology Report ---
APPROVED REPORT EXAM: Two-dimensional and M-mode echocardiogram with Doppler and color Doppler. INDICATION Left ventricular function Technically difficult study due to poor acoustic windows. Limited study. Study quality precludes accurate assessment of regional wall motion. Normal left ventricular chamber size, systolic function and wall motion. Left ventricular ejection fraction estimated to be grossly normal to extend visualized. Moderate right ventricular enlargement with reduced systolic function. No evidence of pericardial fat or effusion. Thickened mitral valve leaflets with normal excursion. Pulmonic valve not well visualized. Normal tricuspid valve structure. IVC not obtainable. Probable pacemaker wire present in the right side chambers. A color flow and spectral Doppler study was performed and revealed: No mitral regurgitation. Left ventricular diastolic dysfunction grade 1. Trace tricuspid regurgitation. Tricuspid systolic velocities suggests peak right ventricular systolic pressure of 12 mmHg
--- NOTE | 2017-06-18 08:31 | Discharge Summary ---
DATE OF ADMISSION: 06/12/2017 DATE OF DISCHARGE: 06/16/2017 REASON FOR ADMISSION: 57-year-old male with history of ventilator-dependent respiratory failure, tracheostomy, hepatitis C, dysphagia, G-tube, history of CVA, chronic anoxic encephalopathy, and cardiomyopathy with ejection fraction of 30%, presented with severe hypotension and altered level of consciousness. In the emergency department, the patient was febrile with fever -102.6 degrees, tachycardic- 132. WBC - 12. AST- 636, ALT- 513. Lactic acid -1.7. BUN -73, creatinine -1.0, sodium - 171, and potassium -5.2. Chest x-ray revealed no acute cardiopulmonary disease. The patient was admitted to ICU for hemodynamic support further management. ADMITTING DIAGNOSES: 1. Septic shock. 2. Acute on chronic encephalopathy. 3. Acute on chronic respiratory failure. 4. Acute hypernatremia. 5. Dehydration. 6. Elevated liver function tests. 7. Cardiomyopathy. 8. Multiple decubitus ulcers, POA HOSPITAL COURSE: The patient was admitted to intensive care unit. The patient initially required pressors for hemodynamic support. The patient initially was on Levophed , and was able to be weaned from it on 06/13/2017. Echocardiogram on previous admission revealed ejection fraction of 30%. Ventilator support and tracheostomy care provided. Pulmonary toilet provided as needed. ABG was stable on current setting. Keep settings as is and titrate as needed. The patient was on the IV fluids with dextrose per manager hardware, who closely followed the patient. Sodium was trending down and decreased to 146 prior to discharge. Acute hypernatremia was likely secondary to free water deficit and dehydration. Potassium -3.0 prior to discharge, was replaced prior to transfer to the [facility]acute [facility]. Acute altered level of consciousness was likely due to sepsis versus metabolic reasons. The patient had a history of cardiac arrest and chronic anoxic encephalopathy. Strict aspiration precautions were maintained. The patient was able to tolerate tube feeding. LFTs initially elevated, trending down. The patient had a history of hepatitis C. An abdominal ultrasound done on 06/13/2017 revealed gallbladder wall thickening , but no definite gallstones. Possibly edema due to hepatocellular disease. Acute acalculous cholecystitis was not completely excludable, however, CT of the abdomen and pelvis done on previous admission on 05/17/2017 and liver and gallbladder revealed no obvious acute abnormality. Due to diarrhea, stool for C. difficile was checked and was negative. The patient was initially on empiric antibiotics. ID closely followed. To reiterate, CT of the chest, abdomen, and pelvis on 05/17/2017 revealed no evidence of abscess and showed pulmonary bibasilar parenchymal consolidation. Lactate was within normal limits. TTE showed poor quality study, but no SBE. All cultures up to date negative. The patient was on empiric antibiotics, which will be continued at the [facility] facility to complete the course as per ID recommendations. Blood culture were negative. Stool for C. diff was negative. Wound culture of sacral decubitus, colonized. The patient had multiple decubitus, present on admission, which not appeared to be grossly infected. Wound care nurse consulted. Abdominal ultrasound revealed bilateral echogenic kidney consistent with medical renal disease. According to manager hardware, need to closely monitor renal parameters in SNF, since the patient was prone to developed acute renal failure; manager hardware recommended to avoid nephrotoxic. Wound care was provided as per wound care nurse recommendation. Continue wound care at SNF. Leukocytosis resolved. Vital signs stable. Blood pressure stable, off pressors. Mental status back to baseline . LFT trending down. Tolerated GT feeding with strict aspiration precautions being maintained. Diarrhea stooped. Electrolytes normalized. Renal parameters improved. BUN down to 52 and creatinine- 0.7. The patient was stable for discharge. FINAL DIAGNOSES: 1. Septic shock, resolved. 2. Acute on chronic encephalopathy (due to septic versus metabolic reasons). 3. Acute on chronic respiratory failure. 4. Ventilator-dependent respiratory failure, tracheostomy status. 5. Acute hypernatremia (secondary to free water deficit), resolved. 6. Dehydration, resolved. 7. Cardiomyopathy. 8. Dysphagia, gastrostomy tube. 9. Elevated liver function tests with history of hepatitis C -improving 10. Diarrhea. 11. Multiple decubitus ulcer, present on admission: (sacral and coccygeal stage IV, right ear stage III, right medial knee stage III, right lateral knee stage III, left heel stage II, right heel stage II, right scapula stage III, left ischial tuberosity stage III). DISCHARGE MEDICATIONS: List of medication was sent with the patient to admitting facility. DISCHARGE INSTRUCTIONS: The patient was discharged to subacute [facility] facility [facility]. Follow up with child care provider and medical doctor at the facility Shani Moses M.D. Chiara [place]hemant NNichelle DR: Khloe JOB#: [id number] CC: DEMAR
== END 2017-06-16 19:05 | DRG 720 ==
LOC: EDBD 12:32 → EMR 13:36 → ICU 14:10 → EDBEDREQ 14:17 → EDBEDREQSVC 14:32 → 2W 06-14 18:45
PROC: 5A1955Z Respiratory Ventilation, Greater than 96 Consecutive Hours (ICD-10-PCS; principal; 2017-06-12)
PROC: 30233N1 Transfusion of Nonautologous Red Blood Cells into Peripheral Vein, Percutaneous Approach (ICD-10-PCS; 2017-06-16)
DX: A41.9 Sepsis, unspecified organism (principal); J96.20 Acute and chronic respiratory failure, unspecified whether with hypoxia or hypercapnia; R65.21 Severe sepsis with septic shock; G93.1 Anoxic brain damage, not elsewhere classified; G93.41 Metabolic encephalopathy; L89.154 Pressure ulcer of sacral region, stage 4; Z99.11 Dependence on respirator [ventilator] status; E87.0 Hyperosmolality and hypernatremia; L89.813 Pressure ulcer of head, stage 3; Z43.0 Encounter for attention to tracheostomy; L89.113 Pressure ulcer of right upper back, stage 3; L89.323 Pressure ulcer of left buttock, stage 3; R64 Cachexia; Z68.1 Body mass index [BMI] 19.9 or less, adult; E86.0 Dehydration; Z43.1 Encounter for attention to gastrostomy; R13.10 Dysphagia, unspecified; L89.622 Pressure ulcer of left heel, stage 2; L89.612 Pressure ulcer of right heel, stage 2; Z86.74 Personal history of sudden cardiac arrest; I48.0 Paroxysmal atrial fibrillation; I25.5 Ischemic cardiomyopathy; Z95.810 Presence of automatic (implantable) cardiac defibrillator; M46.28 Osteomyelitis of vertebra, sacral and sacrococcygeal region; K80.20 Calculus of gallbladder without cholecystitis without obstruction; B19.20 Unspecified viral hepatitis C without hepatic coma
CPT/HCPCS: 36415; 36600; 71010; 76700; 80053; 80150; 80202; 81003; 82150; 82248; 82378; 82533; 82550; 82553; 82607; 82728; 82746; 82803; 82977; 83540; 83550; 83605; 83690; 83735; 83880; 84100; 84153; 84484; 84550; 85007; 85025; 85610; 85730; 86140; 86580; 86703; 86850; 86900; 86901; 86920; 87040; 87070; 87081; 87181; 87205; 87324; 93005; 93306; 94002; 94003

== ENCOUNTER 2017-06-23 02:40 | Inpatient (IN) | payer OTHER ==
[2017-06-23] VITALS (8 sets, daily range): BP systolic 84–115; BP diastolic 49–76
[~2017-06-23] VITALS: Ht 170.2 cm; Wt 56.7 kg
[~2017-06-23 02:40] MED LIST changes: +HEPARIN SO5000 UNIT2 SUBQ; +LACTULOSE20 GM/301 GT; -LACTULOSE20 GM/301 ORAL; +LISINOPRIL10 MG GT; -LISINOPRIL10 MG ORAL; +MIRALAX17 G2 GT; +OMEPRAZOLE40 M1 GT; -OMEPRAZOLE40 M1 ORAL; +SPIRONOLACTONE25 MG GT; +VITAMIN C500 M1 GT; -VITAMIN C500 M1 ORAL
--- NOTE | 2017-06-23 02:52 | Emergency Room Report ---
History of Present Illness General Chief Complaint: General Complaint Source: Medical Record, EMS Present Illness HPI [id number] sent from [facility] for tachycardia. 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 Not providing HPI at this time. All info from EMR Recent admission . Presented tachycardic and hypotensive at that time too. Na was 171. Was started on empiric Abx. All workup was negative including Blood Cx and Cdiff. Allergies: Coded Allergies: No Known Allergies (Unverified , 03/07/17) Patient History Past Medical History: other - see my HPI Past Surgical History: other - Trach Nursing Documentation-PMH Past Medical History: No History, Except For Hx Hypertension: Yes - HEP C, ANEMIA Hx Pacemaker: Yes Hx Diabetes: No Hx Cancer: No Hx Gastrointestinal Problems: Yes - GTUBE History Of Psychiatric Problem: Yes - Anxiety Hx Neurological Problems: Yes - ENCEPHALOPATHY Hx Cerebrovascular Accident: Yes Hx Seizures: Yes Review of Systems All Other Systems: limited - Patient trach/vent chronically Physical Exam Vital Signs Date Time Temp Pulse Resp B/P Pulse Ox O2 Delivery O2 Flow Rate FiO2 06/23/17 02:38 136 22 101/76 100 Mechanical Ventilator Sp02 EP Interpretation: reviewed, normal General Appearance: normal inspection, well appearing, cachetic, Chronically Ill Head: normocephalic, atraumatic Eyes: bilateral eye EOMI, bilateral eye PERRL ENT: normal ENT inspection, hearing grossly normal, normal voice Neck: normal inspection, full range of motion, supple, no meningismus, no bony tend, tracheotomy Respiratory: normal inspection, lungs clear, normal breath sounds, no respiratory distress, no retraction, no wheezing Cardiovascular #1: regular rate, rhythm, no edema Gastrointestinal: normal inspection, normal bowel sounds, non tender, soft, no guarding, no hernia Genitourinary: no CVA tenderness Musculoskeletal: normal inspection, back normal, normal range of motion, Cesia' s Sign negative Neurologic: normal inspection, alert, responsive, personal lines agent III-XII nml as tested, speech normal Psychiatric: normal inspection, judgement/insight normal, mood/affect normal Skin: other - multiple sacral decubitus ulcers in variosu stages Medical Decision Making Diagnostic Impression: Primary Impression: Sepsis Qualified Codes: A41.9 - Sepsis, unspecified organism Additional Impressions: UTI (urinary tract infection) Qualified Codes: N30.01 - Acute cystitis with hematuria Hyperkalemia ER Course Tachycardia, hypotension - Sepsis criteria met - Afebrile - Urine grossly infected, ?new infiltrate on CXR - Concern for hospital acquired infections given recent admission - Vanc/Zosyn given. Patient also on Q8 Flagyl Gtube which was given here as well - Patient's BP is fluid responsive. MAP >65 at time of admission HyperK - ECG is sinus tach. Calcium and kayexelate given Endorsed to Dr Moses for [facility] admit at 406am EKG Diagnostic Results Rate: tachycardiac Rhythm: NSR ST Segments: no acute changes ASA given to the pt in ED: No Rhythm Strip Diag. Results EP Interpretation: yes Rate: 127 Rhythm: NSR, no PVC's, no ectopy Last Vital Signs Date Time Temp Pulse Resp B/P Pulse Ox O2 Delivery O2 Flow Rate FiO2 06/23/17 02:38 136 22 101/76 100 Mechanical Ventilator Status: improved Disposition: ADMITTED INPATIENT Condition: Critical KORTNEY LOU M.D. Jun 23, 2017 02:52
[2017-06-23] MEDS ORDERED: NS 1000ml 1,700 ML IVLG ONE (03:00)
[2017-06-23] MEDS ORDERED: ZOFRAN4 M3 GT (03:07)
[2017-06-23] MEDS ORDERED: MIRALAX17 G2 ORAL (03:07)
[2017-06-23] MEDS ORDERED: FOLIC ACID1 MG ORAL (03:07)
[2017-06-23] MEDS ORDERED: SPIRONOLACTONE25 MG GT (03:07)
[2017-06-23] MEDS ORDERED: KEPPRA500 M4 GT (03:07)
[2017-06-23 03:20] LABS: KETONES,URINE 1+ (NEGATIVE); LEUKOCYTE ESTERASE ,URINE 3+ (NEGATIVE); NITRITE,URINE NEGATIVE (NEGATIVE); PH,URINE 5 (4.5-8.0); PROTEIN,URINE 3+ (NEGATIVE); UROBILINOGEN,URINE NORMAL MG/DL (0.0-1.0)
[2017-06-23] MEDS ORDERED: Zosyn 4.5gm inj ONE (03:33)
[2017-06-23 03:35] LABS: BASOPHILS % (AUTO) 0.4 % (0.0-2.0); EOSINOPHILS % (AUTO) 0.9 % (0.0-3.0); LYMPHOCYTES % (AUTO) 14.3 % (20.0-45.0); MEAN CORPUSCULAR HEMOGLOBIN 28.7 PG (27.0-31.0); MEAN CORPUSCULAR HGB CONC 31.5 G/DL (32.0-36.0); MEAN CORPUSCULAR VOLUME 91 FL (80-99); MEAN PLATELET VOLUME 7.2 FL (6.5-10.1); MONOCYTES % (AUTO) 7.9 % (1.0-10.0); NEUTROPHILS % (AUTO) 76.5 % (45.0-75.0); PLATELET COUNT 617 K/UL (150-450); RED BLOOD COUNT 3.38 M/UL (4.70-6.10); RED CELL DISTRIBUTION WIDTH 18.2 % (11.6-14.8); WHITE BLOOD COUNT 15.3 K/UL (4.8-10.8)
[2017-06-23 03:36] LABS: APPEARANCE,URINE SLIGHTLY CLOUDY
[2017-06-23] MEDS ORDERED: metroNIDAZOLE 500mg tab GT STA (03:36)
[2017-06-23 03:37] LABS: BACTERIA,URINE MODERATE /HPF; CALCIUM OXALATE CRYSTALS,UR FEW /LPF; WBC,URINE TNTC /HPF (0 - 0)
[2017-06-23 03:38] LABS: ALANINE AMINOTRANSFERASE 29 U/L (3-41); ALBUMIN/GLOBULIN RATIO 0.5 (1.0-2.7); ANION GAP 5 (5-15); ASPARTATE AMINO TRANSFERASE 26 U/L (5-40); CALCIUM 8.8 mg/dL (8.6-10.2); CARBON DIOXIDE 35 mEQ/L (20-30); CHLORIDE 105 mEQ/L (98-107); CREATININE 0.6 mg/dL (0.7-1.2); GLOMERULAR FILTRATION RATE > 60 mL/min (>60); HEMOLYSIS 28; POTASSIUM 5.9 mEQ/L (3.4-4.9); SODIUM 145 mEQ/L (135-145); TOTAL PROTEIN 6.9 g/dL (6.6-8.7)
[2017-06-23 03:38] LABS: COARSE GRANULAR CASTS,URINE 0-2 /LPF; YEAST,URINE MODERATE /HPF
[2017-06-23 03:40] LABS: TROPONIN I < 0.30 ng/mL (<=0.30)
[2017-06-23 03:49] LABS: CKMB 4.4 ng/mL (< 6.7)
[2017-06-23] MEDS ORDERED: Calcium Gluconate 1gm/10ml vial IVP ONE (04:00)
[2017-06-23] MEDS ORDERED: Sodium Polystyrene Sulfonate 15gm Powder ORAL ONE (04:00)
[2017-06-23] MEDS ORDERED: Vancomycin 1 GM in NS 275 ML IVPB ONE (04:00)
[2017-06-23] MEDS ORDERED: Vancomycin 1gm inj IVPB ONE (04:08)
[2017-06-23] MEDS: Piperacillin/Tazobactam 4.5 GM in NS 110 ML IV SCH ×2 (04:33→04:42)
[2017-06-23] MEDS ORDERED: Zosyn 2.25gm inj IV STA ×2 (04:43→04:46)
[2017-06-23] MEDS ORDERED: LORazepam Inj 2mg/ml 1ml IV PRN (07:15)
[2017-06-23] MEDS ORDERED: DuoNeb 0.5-3(2.5)mg/3ml neb HHN PRN (07:15)
[2017-06-23] MEDS ORDERED: Miralax 17gm pkt ORAL PRN (07:15)
[2017-06-23] MEDS ORDERED: Morphine Sulfate 4mg/ml Inj IVP PRN (07:15)
[2017-06-23] MEDS ORDERED: Miralax 17gm pkt GT PRN (08:18)
[2017-06-23] MEDS: Amiodarone 200mg tab GT SCH (09:00)
[2017-06-23] MEDS: Pantoprazole Inj IV SCH (10:31)
[2017-06-23] MEDS: levETIRAcetam 500mg/5ml Liquid GT SCH ×2 (10:32→21:03)
[2017-06-23] MEDS: Lisinopril 20mg tab GT SCH (10:35)
[2017-06-23] MEDS: Heparin 5000 units/ml inj SUBQ SCH ×2 (10:39→21:05)
--- NOTE | 2017-06-23 11:43 | Diagnostic Imaging Report ---
Indication: Dyspnea Comparison: 06/16/17 A single view chest radiograph was obtained. Findings: There is pacemaker present. Vague perihilar density is again demonstrated, probably atelectasis. Heart size is stable. No evidence of pulmonary edema. Tracheostomy and generalized pain noted. Impression: No interval change. Mild atelectasis versus infiltrate perihilar regions bilaterally.
--- NOTE | 2017-06-23 12:33 | History and Physical ---
History of Present Illness General Date patient seen: Jun 23, 2017 Reason for Hospitalization: General Complaint Present Illness HPI 57 year old male with hx of Hypoxemic encephalopathy, trach/peg/ bed bound, brought in [place] [facility] [place] with acute altered mental status, tachycardia and hypotension No further history was available. Patient is nonverbal. History was obtained from patient's [facility] paperwork. Pt was hypotensive and with very high Na and admitted to ICU for further care. Allergies: Coded Allergies: No Known Allergies (Unverified , 03/07/17) Medication History Scheduled Amiodarone Hcl (Amiodarone Hcl), 200 MG GT DAILY, (Reported) Ascorbic Acid* (Vitamin C*), 500 MG ORAL DAILY, (Reported) Aspirin* (Aspir 81*), 81 MG GT DAILY, (Reported) Carvedilol (Coreg), 3.125 MG GT Q12HR Carvedilol* (Carvedilol*), 3.125 MG GT BID, (Reported) Cefepime Hcl/D5w (Cefepime-Dextrose 2 Gm/50 Ml), 2 GM IVPB EVERY 12 HOURS, ( Reported) Clonidine Hcl (Clonidine Hcl), 0.1 MG PO Q6HR, (Reported) Colistimethate Sodium (Colistin), 150 MG INH Q12HR@10,22 Docusate Sodium* (Docusate Sodium*), 100 MG ORAL TWICE A DAY, (Reported) Folic Acid* (Folic Acid*), 1 MG ORAL DAILY, (Reported) Furosemide* (Lasix*), 60 MG GT DAILY, (Reported) Heparin Sod (Porcine) (Heparin Sodium*), 5,000 UNITS SUBQ EVERY 12 HOURS, ( Reported) Lansoprazole* (Prevacid*), 30 MG GT DAILY, (Reported) Levetiracetam (Keppra), 500 MG GT Q12HR Levetiracetam (Keppra), 500 MG GT EVERY 12 HOURS, (Reported) Levetiracetam* (Levetiracetam*), 500 MG GT BID, (Reported) Lisinopril* (Lisinopril*), 10 MG ORAL DAILY, (Reported) Lorazepam* (Lorazepam*), 1 MG GT THREE TIMES A DAY, (Reported) Meropenem (Merrem), 1 GM IV EVERY 8 HOURS Multivitamin Liquid* (Multi-Delyn*), 5 ML GT DAILY, (Reported) Nitrofurantoin Macrocrystal (Macrodantin*), 50 MG GT FOUR TIMES A DAY, (Reported ) Omeprazole (Omeprazole), 40 MG ORAL DAILY, (Reported) Polyethylene Glycol 3350* (Miralax*), 17 GM GT DAILY, (Reported) Polyethylene Glycol 3350* (Miralax*), 17 GM ORAL DAILY, (Reported) Spironolactone (Aldactone), 25 MG GT DAILY Spironolactone* (Aldactone*), 25 MG ORAL DAILY, (Reported) Spironolactone* (Aldactone*), 25 MG GT DAILY, (Reported) Spironolactone* (Aldactone*), 25 MG GT DAILY, (Reported) Vancomycin Hcl/D5w (Vancomycin-D5w 1 G/250 Ml), 1 GM IVPB Q12HR, (Reported) Warfarin Sod (Coumadin*), 7.5 MG GT DAILY, (Reported) Zinc Sulfate (Zinc Sulfate*), 220 MG ORAL DAILY, (Reported) Scheduled PRN Hydrocodone Bit/Acetaminophen 5-325* ([place]helsea 5-325*), 1 TAB ORAL Q4H PRN for For Pain, (Reported) Loperamide HCl (Loperamide), 2 MG GT Q6H PRN Ondansetron* (Zofran*), 4 MG GT Q6H PRN for Nausea & Vomiting, (Reported) Ondansetron* (Zofran*), 4 MG GT Q6H PRN for Nausea & Vomiting, (Reported) Tramadol Hcl* (Ultram*), 50 MG GT Q6H PRN for For Pain, (Reported) Miscellaneous Medications Albuterol Sulfate (Albuterol Sulfate), 2.5 MG IH, (Reported) Lactulose (Lactulose*), 30 ML ORAL, (Reported) Patient History Healthcare decision maker Resuscitation status Advanced Directive on File Past Medical/Surgical History Past Medical/Surgical History: (1) EF of 30 (2) Feeding by G-tube (3) Chronic respiratory acidosis Review of Systems All Other Systems: negative except mentioned in HPI Physical Exam General Appearance: cachetic Lines, tubes and drains: peripheral, trach HEENT: normocephalic Neck: non-tender, normal alignment Respiratory/Chest: chest wall non-tender, lungs clear Cardiovascular/Chest: normal peripheral pulses, normal rate Abdomen: normal bowel sounds, non tender Genitourinary/Rectal: normal genital exam Extremities: normal range of motion Skin Exam: normal pigmentation Neurologic: derrick hand 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 normal Last 24 Hour Vital Signs Date Time Temp Pulse Resp B/P Pulse Ox O2 Delivery O2 Flow Rate FiO2 06/23/17 11:14 117 23 30 06/23/17 10:35 105/63 06/23/17 10:34 122 105/63 06/23/17 09:20 122 23 30 06/23/17 09:00 98.4 118 26 105/63 98 Mechanical Ventilator 30 06/23/17 08:00 130 06/23/17 07:56 98.8 128 29 84/57 98 Mechanical Ventilator 30 06/23/17 07:47 118 18 Mechanical Ventilator 30 06/23/17 07:21 118 17 30 06/23/17 06:30 97.0 133 33 90/67 98 Mechanical Ventilator 30 06/23/17 05:39 100.2 121 24 109/70 100 Mechanical Ventilator 30 06/23/17 05:11 122 24 30 06/23/17 04:12 132 26 30 06/23/17 04:08 78 18 Mechanical Ventilator 40 06/23/17 02:45 100.2 133 22 101/76 100 Mechanical Ventilator 06/23/17 02:38 136 22 101/76 100 Mechanical Ventilator Intake and Output 06/22/17 06/23/17 19:00 07:00 Intake Total 0 ml Balance 0 ml Intake Oral 0 ml Laboratory Tests Test 06/23/17 03:00 06/23/17 03:05 White Blood Count 15.3 K/UL (4.8-10.8) H Red Blood Count 3.38 M/UL (4.70-6.10) L Hemoglobin 9.7 G/DL (14.2-18.0) L Hematocrit 30.8 % (42.0-52.0) L Mean Corpuscular Volume 91 FL (80-99) Mean Corpuscular Hemoglobin 28.7 PG (27.0-31.0) Mean Corpuscular Hemoglobin Concent 31.5 G/DL (32.0-36.0) L Red Cell Distribution Width 18.2 % (11.6-14.8) H Platelet Count 617 K/UL (150-450) H Mean Platelet Volume 7.2 FL (6.5-10.1) Neutrophils (%) (Auto) 76.5 % (45.0-75.0) H Lymphocytes (%) (Auto) 14.3 % (20.0-45.0) L Monocytes (%) (Auto) 7.9 % (1.0-10.0) Eosinophils (%) (Auto) 0.9 % (0.0-3.0) Basophils (%) (Auto) 0.4 % (0.0-2.0) Sodium Level 145 mEQ/L (135-145) Potassium Level 5.9 mEQ/L (3.4-4.9) H Chloride Level 105 mEQ/L (98-107) Carbon Dioxide Level 35 mEQ/L (20-30) H Anion Gap 5 (5-15) Blood Urea Nitrogen 56 mg/dL (7-23) H Creatinine 0.6 mg/dL (0.7-1.2) L Estimat Glomerular Filtration Rate > 60 mL/min (>60) Glucose Level 103 mg/dL (74-106) Lactic Acid Level 1.60 mmol/L (0.66-2.22) Calcium Level 8.8 mg/dL (8.6-10.2) Total Bilirubin < 0.2 mg/dL (0.0-1.2) Aspartate Amino Transf (AST/SGOT) 26 U/L (5-40) Alanine Aminotransferase (ALT/SGPT) 29 U/L (3-41) Alkaline Phosphatase 187 U/L (40-129) H Total Creatine Kinase 42 U/L (38-174) Creatine Kinase MB 4.4 ng/mL (< 6.7) Creatine Kinase MB Relative Index 10.4 Troponin I < 0.30 ng/mL (<=0.30) Total Protein 6.9 g/dL (6.6-8.7) Albumin 2.4 g/dL (3.5-5.2) L Globulin 4.5 g/dL Albumin/Globulin Ratio 0.5 (1.0-2.7) L Urine Color Yellow Urine Appearance Slightly cloudy Urine pH 5 (4.5-8.0) Urine Specific [place] 1.010 (1.005-1.035) Urine Protein 3+ (NEGATIVE) H Urine Glucose (UA) Negative (NEGATIVE) Urine Ketones 1+ (NEGATIVE) H Urine Occult Blood 3+ (NEGATIVE) H Urine Nitrite Negative (NEGATIVE) Urine Bilirubin Negative (NEGATIVE) Urine Urobilinogen Normal MG/DL (0.0-1.0) Urine Leukocyte Esterase 3+ (NEGATIVE) H Urine RBC 2-4 /HPF (0 - 0) H Urine WBC Tntc /HPF (0 - 0) H Urine Squamous Epithelial Cells None /LPF (NONE/OCC) Urine Calcium Oxalate Crystals Few /LPF (NONE) Urine Bacteria Moderate /HPF (NONE) H Urine Coarse Granular Casts 0-2 /LPF (NONE) H Urine Yeast Moderate /HPF (NONE) H Height (Feet): 5 Height (Inches): 7.00 Weight (Pounds): 125 Medications Current Medications Medications (Trade) Dose Ordered Sig/Tameka Route PRN Reason Start Time Stop Time Status Last Admin Dose Admin Acetaminophen (Tylenol) 650 mg Q4H PRN ORAL Mild Pain/Temp > 100.5 06/23/17 05:00 07/23/17 04:59 Albuterol/ Ipratropium (DuoNeb 0.5-3(2.5)mg/3ml) 3 ml Q4H PRN HHN Shortness of Breath 06/23/17 07:15 06/28/17 07:14 Amiodarone HCl (Cordarone) 200 mg DAILY GT 06/23/17 09:00 07/23/17 08:59 06/23/17 09:00 Carvedilol (Coreg) 3.125 mg Q12HR GT 06/23/17 09:00 07/23/17 08:59 06/23/17 10:34 Dextrose STAT PRN IV Hypoglycemia 06/23/17 07:15 07/23/17 07:14 Heparin Sodium (Porcine) (Heparin 5000 units/ml) 5,000 units EVERY 12 HOURS SUBQ 06/23/17 09:00 07/23/17 08:59 06/23/17 10:39 Levetiracetam (Keppra) 500 mg Q12HR GT 06/23/17 09:00 07/23/17 08:59 06/23/17 10:32 Lisinopril (Prinivil) 10 mg DAILY GT 06/23/17 09:00 07/23/17 08:59 06/23/17 10:35 Lorazepam (Ativan 2mg/ml 1ml) 2 mg Q2H PRN IV For Anxiety 06/23/17 07:15 06/30/17 07:14 Morphine Sulfate (Morphine Sulfate) 4 mg Q4H PRN IVP Severe Pain (Pain Scale 7-10) 06/23/17 07:15 06/30/17 07:14 Ondansetron HCl (Zofran) 4 mg Q6H PRN IVP Nausea & Vomiting 06/23/17 07:15 07/23/17 07:14 Pantoprazole (Protonix) 40 mg DAILY IV 06/23/17 09:00 07/23/17 08:59 06/23/17 10:31 Piperacillin Sod/ Tazobactam Sod/ Sodium Chloride (Zosyn/Sodium Chloride) 110 ml @ 27.5 mls/hr Q8HR IVPB 06/23/17 14:00 06/30/17 13:59 Polyethylene Glycol 17 gm 17 gm DAILYPRN PRN GT Constipation 06/23/17 08:18 07/23/17 07:14 Vancomycin HCl (Vanco rx to dose) 1 ea DAILY PRN MISC . 06/23/17 08:45 07/23/17 08:44 Vancomycin HCl/ Dextrose (Vancomycin/D5W) 275 ml @ 183.708 mls/hr Q12H IVPB 06/23/17 12:00 06/28/17 11:59 Assessment/Plan Problem List: (1) Septic shock ICD Codes: A41.9 - Sepsis, unspecified organism; R65.21 - Severe sepsis with septic shock SNOMED: 44347129 (2) Acute on chronic respiratory failure ICD Codes: J96.20 - Acute and chronic respiratory failure, unspecified whether with hypoxia or hypercapnia SNOMED: 31700569, 05374096 (3) EF of 30 (4) Feeding by G-tube ICD Codes: Z93.1 - Gastrostomy status SNOMED: 479320571, 261251284 Respiratory: monitor respiratory rate, adjust FIO2, CXR Cardiac: continue to monitor HR/BP Renal: F/U I&O, keep IV fluid, check electrolytes Infectious Disease: check cultures Gastrointestinal: continue feedings/current rate, hold feedings Endocrine: check TSH, check HgA1C Hematologic: transfuse if hgb<8.5 Neurologic: PRN Ativan, PRN Morphine, keep patient comfortable Affect: PRN ativan Prophylaxis: Heparin Notes Reviewed: cardio Discussed with: nurses, case management assistant ODETTE SMILEY Jun 23, 2017 12:33
[2017-06-23] MEDS: Vancomycin 750mg/D5W 275ml IVPB SCH ×4 (13:19→23:53)
--- NOTE | 2017-06-23 14:41 | Infectious Diseases Prog Note ---
Infectious Disease Consult Infectious Disease Consult Infectious Disease Consult INFECTIOUS DISEASE CONSULTATION DATE OF CONSULTATION: [id number] CONSULTING PHYSICIAN: Colby Friend M.D., [facility], [facility] Covering for Dr. Naqvi REFERRING PHYSICIAN: Dr. Renetta Moses REASON FOR CONSULTATION: low grade fevers, leukocytosis, sepsis, h/o MDR pathogens HISTORY OF PRESENT ILLNESS: 57 year old AAM at SNF with hx of anoxic encephalopathy, trach/peg/ bed bound, h /o Stage IV sacrococcygeal ulcer, recurrent MDR infections, [place] [facility] [place] today with acute altered mental status, tachycardia, hypotension, and hypernatremia (from SNF). No further history was available. Patient is nonverbal. History was obtained from patient's [facility] paperwork. admitted to [facility] for further care. Initial temp 100.2F rectally, hypotension improved with fluids, remains on vent, persistent trachycardia to 115. Initial labs notable for WBC 15.3 w/o left shift, hgb 9.7, reactive thrombocytosis 617, Na 145, K 5.9, CO2 35, SCr 0.6 with elevated BUN 56, gluc 103, nl bili, nl LFTS except alk phos persistently mildly elevated at 187, nl C , neg trop, albumin 2.4, and u/a notable fro 3+ blood, 3+ protein, 3+ LE, many WBC, mod bacteria, mod yeast, and PCXR stable vs 06/16/17 with subtle perihilar infiltrate vs atelectasis. blood, sputum, and urine cx have been sent. Currently on IV zosyn and vancomycin. BLE dopplers and wound care have been ordered and are pending. PAST MEDICAL HISTORY: Chronic ventilator-dependent respiratory failure Ischemic cardiomyopathy with EF 30-35% Hypertension paroxysmal atrial fibrillation HCV Ab+ multiple decubitus ulcers, including b/l posterior ears and a large Stage IV sacrococcygeal ulcer cachexia Past Surgical History: AICD placement tracheostomy PEG tube placement ALLERGIES: No known drug allergies. ANTIBIOTICS: Home and hospitalized medications reviewed. Currently on IV vanc and zosyn. s/ p flagyl x1 in ER. SOCIAL HISTORY: resident of a [facility]. no active tobacco, alcohol, or illicit drug use FAMILY HISTORY: Noncontributory, unknown REVIEW OF SYSTEMS: 11 point ROS negative except for that mentioned in HPI above. PHYSICAL EXAM: VITAL SIGNS: General Appearance: cachetic, eyes open, responds to simple commands, follows examiner with his eyes Lines, tubes and drains: peripheral IV, trach. R inguinal CVC TLC HEENT: normocephalic with temporal wasting Neck: non-tender, normal alignment Respiratory/Chest: chest wall non-tender, lungs clear Cardiovascular/Chest: normal peripheral pulses, tachycardic Abdomen: normal bowel sounds, non tender. G tube in place. no surrounding erythema. Genitourinary/Rectal: normal genital exam. faint groin erythema Extremities: normal range of motion Skin Exam: normal pigmentation. multiple decubitus ulcers, including non infected b/l posterior auricles. did not exam known Stage IV sacral decub. ischial ulcers. 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 06/23/17 blood cx pending urine cx pending sputum cx pending RADIOLOGY: CXR as above. ASSESSMENT AND PLAN ASSESSMENT: 1) Septic shock--not on pressors, hypotension resolved s/p fluid bolus. Likely secondary to hypovolemia secondary to dehydration, UTI, and possible sepsis from chronic sacral wound. pending wound care eval, previously has received Dakin's. prior surgical eval. had some superficial necrosis and foul smelling wound during admission in early May2017. 2) Dehydration--based on exam, serum Na, BUn/Cr ratio 3) Stage IV sacral decubitus ulcers --recent wcx: MDR ACB, C albicans, and KPC (sensitive only to colistin) during early May2017, his sacral decubitus ulcer probes to bone. has been evaluated by surgery and not considered surgical candidate, and he's received close care from the wound team, previously receiving Dakin's and chemical debridement of foul smelling fibrinous exudate centrally 4) Chronic sacrococcygeal osteomyelitis. see #3 above. 5) Leukocytosis 6) Fever, low grade, resolved 7) Elevated alk phos, stable s/p u/s 06/13 with some GB wall thickening, no definite stone, acute acalculous cholecystitis not entirely excluded 8) HCV Ab+, no transaminitis currently. HIV negative on last admission 9) s/p diarrhea. no active diarrhea. recent C diff on last admission negative 10) h/o recurrent HCAP/VAP--MDR-ACB, KPC, Providencia, XDR Pseudomonas. No bacteremia documented in 2017. s/p treatment, no evidence of recurrence s/p (06/17 s/p vancomycin, cefepime D#7) (06/15 s/p amikacin D#4) (06/14 s/p flagyl D#2) (06/12 s/p ertapenem x1) (05/27 s/p tigecycline and colistin D#14/, meropenem D#/) (05/15 s/p IV vancomycin and zosyn D#5) s/p D#7 meroepenem and inhaled colistin (03/13 s/p vancomycin and zosyn D#5) Chronic anoxic encephalopathy--mentation at baseline -h/o cardiac arrest Borderline hypernatremia Cachexia with elevated CEA, normal PSA Acute on chronic anemia Sinus tachycardia respiratory alkalosis Chronic VDRF, s/p trach and PEG Cardiomyopathy s/p defibrillatory placement Paroxysmal Afib Alf resident MDRO colonized NKDA Full code? PLAN: Continue empiric IV zosyn and vancomycin. This is an appropriate choice for UTI pending culture results. However, if we become concerned that chronic sacral wound is a source, and he has recurrence of fevers, persistent leukocytosis, or recurrence of persistence hypotension, would add on empiric IV colistin given known MDR ACB and KPC (sensitive only to colistin) previously isolated from this chronic sacral wound. Follow up sputum, urine, and blood cultures monitor CBC and temperatures RUQ u/s to r/o biliary source, but I suspect his mild alk phos elevation coming from bone (sacralcoccygeal osteo) Monitor CMP. Monitor Chest X-ray ESR, CRP Ventilatory support, tracheostomy care, aspiration precautions. Wound care Consider surgical consult for his chronic sacral wound. Thank you for this consultation. Will continue to follow. Covering for Dr. Naqvi, please call me with questions, Colby Friend M.D. Jun 23, 2017 14:41
[2017-06-23] MEDS: Piperacillin/Tazobactam 3.375 GM in NS 110 ML IVPB SCH ×2 (15:50→22:54)
--- NOTE | 2017-06-23 23:37 | Wound Care Consultation ---
Wound Assessment Wound Assessment #1: Wound Number: #1 Wound Present on Admission: Yes New Wound: No Status Change of Wound: No Wound Location Body Site Modif: left Wound Location Body Site: ear Wound Type: pressure ulcer Francis Test: Does not Francis Pressure Ulcer Stage: IV/unstageable Wound Thickness: Full Thickness Wound Length: 5.0 Wound Width: 2.0 Wound Depth: utd Percent of Wound [place]/Red: 20 Percent of Wound Bed Yellow/Wh: 80 Wound Drainage Description: Serosanguineous Wound Drainage Amount: Moderate Wound Drainage Odor: None/Absent Tissue Surrounding Wound: Macerated Wound General Appearance: Draining, Necrotic Wound Assessment #2: Wound Number: #2 Wound Present on Admission: Yes New Wound: No Status Change of Wound: No Wound Location Body Site Modif: right Wound Location Body Site: ear Wound Type: pressure ulcer [place] Test: Does not Francis Pressure Ulcer Stage: III Wound Thickness: Full Thickness Wound Length: 1.5 Wound Width: 1.5 Wound Depth: 0.1 Percent of Wound [place]/Red: 100 Wound Drainage Description: Serosanguineous Wound Drainage Amount: Scant Wound Drainage Odor: None/Absent Tissue Surrounding Wound: Macerated Wound General Appearance: Reddened, Draining Wound Assessment #3: Wound Number: #3 Wound Present on Admission: Yes New Wound: No Status Change of Wound: No Wound Location Body Site Modif: left Wound Location Body Site: heel Wound Type: pressure ulcer Francis Test: Does not Francis Wound Thickness: Full Thickness - scar Wound Length: 3.5 Wound Width: 1.5 Wound Depth: 0.1 Percent of Wound [place]/Red: 100 Wound Drainage Amount: None Wound Drainage Odor: None/Absent Tissue Surrounding Wound: Intact Wound General Appearance: Asymptomatic Wound Assessment #4: Wound Number: #4 Wound Present on Admission: Yes New Wound: No Status Change of Wound: No Wound Location Body Site Modif: right Wound Location Body Site: heel Wound Type: pressure ulcer Francis Test: Does not Francis Wound Thickness: Full Thickness - scar tissue Wound Length: 3.5 Wound Width: 1.5 Percent of Wound [place]/Red: 100 Wound Drainage Amount: None Wound Drainage Odor: None/Absent Tissue Surrounding Wound: Intact Wound General Appearance: Asymptomatic Wound Assessment #5: Wound Number: #5 Wound Present on Admission: Yes New Wound: No Status Change of Wound: No Wound Location Body Site Modif: left, lateral Wound Location Body Site: malleolus/ankle Wound Type: pressure ulcer Francis Test: Does not Francis Pressure Ulcer Stage: IV/unstageable Wound Thickness: Full Thickness Wound Length: 3.0 Wound Width: 2.5 Wound Depth: utd Percent of Wound Bed Yellow/Wh: 100 Wound Drainage Description: Serosanguineous Wound Drainage Amount: Moderate Wound Drainage Odor: None/Absent Tissue Surrounding Wound: Macerated Wound General Appearance: Draining, Necrotic Wound Assessment #6: Wound Number: #6 Wound Present on Admission: Yes New Wound: No Status Change of Wound: No Wound Location Body Site Modif: right, lateral Wound Location Body Site: malleolus/ankle Wound Type: pressure ulcer Francis Test: Does not Francis Pressure Ulcer Stage: deep tissue injury Wound Thickness: Full Thickness Wound Length: 2.5 Wound Width: 2.5 Wound Depth: utd Percent of Wound Purple/Maroon: 100 Wound Drainage Amount: None Wound Drainage Odor: None/Absent Tissue Surrounding Wound: Erythemic Wound General Appearance: Reddened Wound Assessment #7: Wound Number: #7 Wound Present on Admission: Yes New Wound: No Status Change of Wound: No Wound Location Body Site Modif: right, medial Wound Location Body Site: malleolus/ankle Wound Type: pressure ulcer Francis Test: Does not Francis Wound Thickness: Full Thickness - full thickness scar tissue Wound Length: 1.5 Wound Width: 1.5 Wound Depth: utd Percent of Wound [place]/Red: 100 Wound Drainage Amount: None Wound Drainage Odor: None/Absent Tissue Surrounding Wound: Intact Wound General Appearance: Asymptomatic, Reddened Wound Assessment #8: Wound Number: #8 Wound Present on Admission: Yes New Wound: No Status Change of Wound: No Wound Location Body Site Modif: left Wound Location Body Site: elbow Wound Type: pressure ulcer Francis Test: Does not Francis Wound Thickness: Full Thickness - scattered scar tissue Percent of Wound [place]/Red: 100 Wound Drainage Amount: None Wound Drainage Odor: None/Absent Tissue Surrounding Wound: Intact Wound General Appearance: Asymptomatic, Reddened Wound Assessment #9: Wound Number: #9 Wound Present on Admission: Yes New Wound: No Status Change of Wound: No Wound Location Body Site Modif: mid Wound Location Body Site: other - sacroccygeal Wound Type: pressure ulcer Francis Test: Does not Francis Pressure Ulcer Stage: IV/unstageable Wound Thickness: Full Thickness Wound Length: 13.0 Wound Width: 18.0 Wound Depth: utd Percent of Wound [place]/Red: 80 Percent of Wound Bed Yellow/Wh: 10 Percent of Wound Purple/Maroon: 10 Wound Drainage Description: Serosanguineous Wound Drainage Amount: Copious Wound Drainage Odor: Foul Odor Tissue Surrounding Wound: Macerated Wound General Appearance: Reddened, Draining Wound Assessment #10: Wound Number: #10 Wound Present on Admission: Yes New Wound: No Status Change of Wound: No Wound Location Body Site Modif: right Wound Location Body Site: ischial tuberosity Wound Type: pressure ulcer Francis Test: Does not Francis Pressure Ulcer Stage: III Wound Thickness: Full Thickness Wound Length: 4.5 Wound Width: 4.5 Wound Depth: 0.2 Percent of Wound [place]/Red: 90 Percent of Wound Bed Yellow/Wh: 10 Wound Drainage Description: Serosanguineous Wound Drainage Amount: Moderate Wound Drainage Odor: None/Absent Tissue Surrounding Wound: Macerated Wound General Appearance: Reddened, Draining Wound Assessment #11: Wound Number: #11 Wound Present on Admission: Yes New Wound: No Status Change of Wound: No Wound Location Body Site: back Wound Type: pressure ulcer Francis Test: Does not Francis Pressure Ulcer Stage: deep tissue injury - scattered Wound Thickness: Full Thickness Percent of Wound Purple/Maroon: 100 Wound Drainage Amount: None Wound Drainage Odor: None/Absent Tissue Surrounding Wound: Erythemic Wound General Appearance: Reddened Wound Assessment #12: Wound Number: #12 Wound Present on Admission: Yes New Wound: No Status Change of Wound: No Wound Location Body Site Modif: left Wound Location Body Site: scapula Wound Type: pressure ulcer Francis Test: Does not Francis Pressure Ulcer Stage: deep tissue injury Wound Thickness: Full Thickness Wound Length: 2.0 Wound Width: 3.5 Wound Depth: utd Percent of Wound Purple/Maroon: 100 Wound Drainage Amount: None Wound Drainage Odor: None/Absent Tissue Surrounding Wound: Erythemic Wound General Appearance: Reddened Wound Assessment #13: Wound Number: #13 Wound Present on Admission: Yes New Wound: No Status Change of Wound: No Wound Location Body Site Modif: left Wound Location Body Site: ischial tuberosity Wound Type: pressure ulcer Francis Test: Does not Francis Pressure Ulcer Stage: III Wound Thickness: Full Thickness Wound Length: 6.5 Wound Width: 5.5 Wound Depth: 0.2 Percent of Wound [place]/Red: 60 Percent of Wound Bed Yellow/Wh: 40 Wound Drainage Description: Serosanguineous Wound Drainage Amount: Moderate Wound Drainage Odor: None/Absent Tissue Surrounding Wound: Macerated Wound General Appearance: Draining Wound Assessment #14: Wound Number: #14 Wound Present on Admission: Yes New Wound: No Status Change of Wound: No Wound Location Body Site Modif: right, lateral Wound Location Body Site: knee Wound Type: pressure ulcer Francis Test: Does not Francis Pressure Ulcer Stage: III Wound Thickness: Full Thickness Wound Length: 1.0 Wound Width: 1.0 Wound Depth: 0.2 Percent of Wound [place]/Red: 80 Percent of Wound Bed Yellow/Wh: 20 Wound Drainage Description: Serosanguineous Wound Drainage Amount: Scant Wound Drainage Odor: None/Absent Tissue Surrounding Wound: Erythemic Wound General Appearance: Reddened, Draining Wound Assessment #15: Wound Number: #15 Wound Present on Admission: Yes New Wound: No Status Change of Wound: No Wound Location Body Site Modif: right, medial Wound Location Body Site: knee Wound Type: pressure ulcer Francis Test: Does not Francis Pressure Ulcer Stage: III Wound Thickness: Full Thickness Wound Length: 0.8 Wound Width: 0.8 Wound Depth: 0.1 Percent of Wound [place]/Red: 100 Wound Drainage Description: Serosanguineous Wound Drainage Amount: Scant Wound Drainage Odor: None/Absent Tissue Surrounding Wound: Intact Wound General Appearance: Reddened, Draining Wound Assessment #16: Wound Number: #16 Wound Present on Admission: Yes New Wound: No Status Change of Wound: No Wound Location Body Site Modif: right Wound Location Body Site: scapula Wound Type: pressure ulcer Francis Test: Does not Francis Pressure Ulcer Stage: III Wound Thickness: Full Thickness Wound Length: 2.5 Wound Width: 2.5 Wound Depth: 0.1 Percent of Wound [place]/Red: 100 Wound Drainage Description: Serosanguineous Wound Drainage Amount: Scant Wound Drainage Odor: None/Absent Tissue Surrounding Wound: Erythemic Wound General Appearance: Reddened Wound Assessment #17: Wound Number: #17 Wound Present on Admission: Yes New Wound: No Status Change of Wound: No Wound Location Body Site Modif: right Wound Location Body Site: perineal area Wound Type: erosion Francis Test: Does not Francis Wound Thickness: Partial Thickness Wound Length: 3.0 Wound Width: 3.0 Wound Depth: 0.1 Percent of Wound [place]/Red: 100 Wound Drainage Description: Serosanguineous Wound Drainage Amount: Scant Wound Drainage Odor: None/Absent Tissue Surrounding Wound: Erythemic Wound General Appearance: Reddened, Draining Wound Assessment #18: Wound Number: #18 Wound Present on Admission: Yes New Wound: No Status Change of Wound: No Wound Location Body Site Modif: left, lateral, dorsal Wound Location Body Site: foot Wound Type: pressure ulcer Francis Test: Does not Francis Pressure Ulcer Stage: II Wound Thickness: Partial Thickness Wound Length: 1.5 Wound Width: 1.5 Wound Depth: less than 0.1 Percent of Wound [place]/Red: 100 Wound Drainage Description: Serosanguineous Wound Drainage Amount: Scant Wound Drainage Odor: None/Absent Tissue Surrounding Wound: Intact Wound General Appearance: Reddened Wound Assessment #19: Wound Number: #19 Wound Present on Admission: Yes New Wound: No Status Change of Wound: No Wound Location Body Site Modif: left, medial Wound Location Body Site: knee Wound Type: pressure ulcer Francis Test: Does not Francis Wound Thickness: Full Thickness - scar tissue Wound Length: 0.8 Wound Width: 0.5 Wound Depth: utd Percent of Wound [place]/Red: 100 Wound Drainage Description: Serosanguineous Wound Drainage Amount: Scant Wound Drainage Odor: None/Absent Tissue Surrounding Wound: Intact Wound General Appearance: Reddened, Draining Wound Comment #1 Left ear unstageable pressure ulcer #2 Right ear stage III pressure ulcer #3 Left lateral malleolus unstageable pressure ulcer #4 Left heel full thickness scar tissue #5 Right heel full thickness scar tissue scar tissue #6 Right medial malleolus full thickness scar tissue #7 Right lateral malleolus DTI pressure ulcer #8 Back area scattered scar tissue and DTI pressure ulcers #9 Right ischial tuberosity stage III pressure ulcer #10 Left scapula DTI pressure ulcer #11 Right scapula stage III pressure ulcer #12 Left ischial tuberosity scattered stage III pressure ulcer #13 Right perineal area erosion with partial thickness skin loss #14 Right medial knee stage III pressure ulcer #15 Right lateral knee stage III pressure ulcer #16 Left lateral knee full thickness scar tissue #17 Sacrococcygeal unstageable pressure ulcer #18 Left elbow full thickness scar tissue #19 Left lateral dorsal foot stage II pressure ulcer Recommendation -Right lateral knee stage III pressure ulcer, Right medial knee stage III pressure ulcer, Right ear stage III pressure ulcer, Left ear unstageable pressure ulcer, Left ischial tuberosity scattered stage III pressure ulcer, Right ischial tuberosity stage III pressure ulcer, left lateral dorsal foot stage II pressure ulcer and right perineal area erosion with partial thickness skin loss Cleanse with saline, pat dry, apply Triad cream, cover with bordered gauze daily and PRN soiled/dislodged -Sacrococcygeal IV/unstageable pressure ulcer Cleanse with Dakin's solution, pat dry, apply Triad cream to periwound area, apply Therahoney gel to wound bed, apply calcium alginate, cover with 4x4, secure with bordered gauze daily and PRN soiled/dislodged -Left malleolus unstageable pressure ulcer and right trochanter unstageable pressure ulcer Cleanse with saline, pat dry, apply Therahoney gel to wound bed, cover with Biatain silicone daily and PRN soiled/dislodged -Local wound care per protocol for DTIs -Low air loss mattress -Keep clean and dry -Heel protector on both heels -Offload both heels -Turn and reposition -Optimize nutrition -Assess and f/u accordingly for any changes KENN GRACE RN Jun 23, 2017 23:37
[2017-06-24] VITALS: BP 103/58
[2017-06-24] MEDS: Dyna-Hex 2% Top Sol 8oz TOPIC SCH ×2 (00:43→08:55)
[2017-06-24 04:30] VITALS: BP 114/67
[2017-06-24 04:51] LABS: BASOPHILS % (AUTO) 0.9 % (0.0-2.0); EOSINOPHILS % (AUTO) 0.7 % (0.0-3.0); LYMPHOCYTES % (AUTO) 14.7 % (20.0-45.0); MEAN CORPUSCULAR HEMOGLOBIN 28.9 PG (27.0-31.0); MEAN CORPUSCULAR HGB CONC 31.6 G/DL (32.0-36.0); MEAN CORPUSCULAR VOLUME 92 FL (80-99); MEAN PLATELET VOLUME 6.6 FL (6.5-10.1); MONOCYTES % (AUTO) 3.6 % (1.0-10.0); NEUTROPHILS % (AUTO) 80.1 % (45.0-75.0); PLATELET COUNT 440 K/UL (150-450); RED BLOOD COUNT 2.79 M/UL (4.70-6.10); RED CELL DISTRIBUTION WIDTH 18.2 % (11.6-14.8); WHITE BLOOD COUNT 13.3 K/UL (4.8-10.8)
[2017-06-24 05:10] LABS: ANION GAP 8 (5-15); CALCIUM 8.2 mg/dL (8.6-10.2); CARBON DIOXIDE 27 mEQ/L (20-30); CHLORIDE 111 mEQ/L (98-107); CREATININE 0.5 mg/dL (0.7-1.2); GLOMERULAR FILTRATION RATE > 60 mL/min (>60); HEMOLYSIS 13; PHOSPHORUS 3.2 mg/dL (2.5-4.8); POTASSIUM 2.9 mEQ/L (3.4-4.9); SODIUM 146 mEQ/L (135-145)
[2017-06-24] MEDS: Piperacillin/Tazobactam 3.375 GM in NS 110 ML IVPB SCH ×3 (06:17→21:00)
[2017-06-24 08:00] VITALS: BP 115/57
[2017-06-24] MEDS: levETIRAcetam 500mg/5ml Liquid GT SCH ×2 (08:54→20:46)
[2017-06-24] MEDS: Pantoprazole Inj IV SCH (08:55)
[2017-06-24] MEDS: Lisinopril 20mg tab GT SCH (08:55)
[2017-06-24] MEDS: Heparin 5000 units/ml inj SUBQ SCH ×2 (08:55→20:47)
[2017-06-24] MEDS: Amiodarone 200mg tab GT SCH (08:56)
--- NOTE | 2017-06-24 10:52 | Pulmonology Progress Note ---
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 Discussed with: nurses, consultants, case management specialist Subjective ROS Limited/Unobtainable: No Constitutional: Reports: no symptoms HEENT: Repors: no symptoms Allergies: Coded Allergies: No Known Allergies (Unverified , 03/07/17) Objective Last 24 Hour Vital Signs Date Time Temp Pulse Resp B/P Pulse Ox O2 Delivery O2 Flow Rate FiO2 06/24/17 09:28 109 21 30 06/24/17 08:55 115/57 06/24/17 08:54 107 115/57 06/24/17 08:00 30 06/24/17 08:00 101 06/24/17 08:00 97.7 107 21 115/57 100 Mechanical Ventilator 30 06/24/17 07:28 107 20 30 06/24/17 04:47 101 20 30 06/24/17 04:30 98.7 102 21 114/67 100 Mechanical Ventilator 30 06/24/17 04:00 109 06/24/17 04:00 30 06/24/17 03:09 108 20 30 06/24/17 01:14 109 20 30 06/24/17 00:00 112 06/24/17 00:00 98.3 115 20 103/58 100 Mechanical Ventilator 30 06/24/17 00:00 30 06/23/17 22:58 113 20 30 06/23/17 21:14 115 88/49 06/23/17 20:55 115 26 30 06/23/17 20:00 98.2 117 20 88/49 100 Mechanical Ventilator 30 06/23/17 20:00 30 06/23/17 20:00 118 06/23/17 18:56 117 20 30 06/23/17 17:10 117 21 30 06/23/17 16:32 98.0 112 20 88/53 100 Mechanical Ventilator 30 06/23/17 16:00 30 06/23/17 16:00 115 06/23/17 15:21 112 22 30 06/23/17 13:08 114 18 30 06/23/17 12:00 117 06/23/17 12:00 30 06/23/17 12:00 98.2 114 22 115/56 100 Mechanical Ventilator 30 06/23/17 11:14 117 23 30 Intake and Output 06/23/17 06/24/17 19:00 07:00 Intake Total 467.416 ml 577.416 ml Output Total 1400 ml 1000 ml Balance -932.584 ml -422.584 ml Free Water 100 ml 100 ml IV Total 367.416 ml 477.416 ml Output Urine Total 1400 ml 1000 ml # Bowel Movements 206 3 General Appearance: cachetic HEENT: normocephalic, atraumatic Respiratory/Chest: chest wall non-tender, lungs clear Cardiovascular: normal peripheral pulses, normal rate Abdomen: normal bowel sounds, soft, non tender Genitourinary: normal external genitalia Extremities: no cyanosis 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 Lymphatic: no neck adenopathy Musculoskeletal: normal muscle bulk Microbiology Date/Time Source Procedure Growth Status 06/23/17 03:05 Urine,Clean Catch Urine Culture - Preliminary NO GROWTH Resulted Laboratory Tests 06/24/17 04:00: White Blood Count 13.3H, Red Blood Count 2.79L, Hemoglobin 8.1L, Hematocrit 25.5L, Mean Corpuscular Volume 92, Mean Corpuscular Hemoglobin 28.9, Mean Corpuscular Hemoglobin Concent 31.6L, Red Cell Distribution Width 18.2H, Platelet Count 440, Mean Platelet Volume 6.6, Neutrophils (%) (Auto) 80.1H, Lymphocytes (%) (Auto) 14.7L, Monocytes (%) (Auto) 3.6, Eosinophils (%) (Auto) 0.7, Basophils (%) (Auto) 0.9, Sodium Level 146H, Potassium Level 2.9#L, Chloride Level 111H, Carbon Dioxide Level 27, Anion Gap 8, Blood Urea Nitrogen 31#H, Creatinine 0.5L, Estimat Glomerular Filtration Rate > 60, Glucose Level 97 , Calcium Level 8.2L, Phosphorus Level 3.2, Albumin 1.8L, Cortisol AM Sample 27.1H Current Medications Medications (Trade) Dose Ordered Sig/Tameka Route PRN Reason Start Time Stop Time Status Last Admin Dose Admin Acetaminophen (Tylenol) 650 mg Q4H PRN ORAL Mild Pain/Temp > 100.5 06/23/17 05:00 07/23/17 04:59 Albuterol/ Ipratropium (DuoNeb 0.5-3(2.5)mg/3ml) 3 ml Q4H PRN HHN Shortness of Breath 06/23/17 07:15 06/28/17 07:14 Amiodarone HCl (Cordarone) 200 mg DAILY GT 06/23/17 09:00 07/23/17 08:59 06/24/17 08:56 Carvedilol (Coreg) 3.125 mg Q12HR GT 06/23/17 09:00 07/23/17 08:59 06/24/17 08:54 Chlorhexidine Gluconate (Anny-Hex 2%) 1 applic DAILY TOPIC 06/24/17 00:30 07/24/17 00:29 06/24/17 08:55 Dextrose STAT PRN IV Hypoglycemia 06/23/17 07:15 07/23/17 07:14 Heparin Sodium (Porcine) (Heparin 5000 units/ml) 5,000 units EVERY 12 HOURS SUBQ 06/23/17 09:00 07/23/17 08:59 06/24/17 08:55 Levetiracetam (Keppra) 500 mg Q12HR GT 06/23/17 09:00 07/23/17 08:59 06/24/17 08:54 Lisinopril (Prinivil) 10 mg DAILY GT 06/23/17 09:00 07/23/17 08:59 06/24/17 08:55 Lorazepam (Ativan 2mg/ml 1ml) 2 mg Q2H PRN IV For Anxiety 06/23/17 07:15 06/30/17 07:14 Morphine Sulfate (Morphine Sulfate) 4 mg Q4H PRN IVP Severe Pain (Pain Scale 7-10) 06/23/17 07:15 06/30/17 07:14 Ondansetron HCl (Zofran) 4 mg Q6H PRN IVP Nausea & Vomiting 06/23/17 07:15 07/23/17 07:14 Pantoprazole (Protonix) 40 mg DAILY IV 06/23/17 09:00 07/23/17 08:59 06/24/17 08:55 Piperacillin Sod/ Tazobactam Sod/ Sodium Chloride (Zosyn/Sodium Chloride) 110 ml @ 27.5 mls/hr Q8HR IVPB 06/23/17 14:00 06/30/17 13:59 06/24/17 06:17 Polyethylene Glycol 17 gm 17 gm DAILYPRN PRN GT Constipation 06/23/17 08:18 07/23/17 07:14 Potassium Chloride (KCl 10% 40mEq Oral solution) 40 meq ONCE ONCE GT 06/24/17 11:00 06/24/17 11:01 Vancomycin HCl (Vanco rx to dose) 1 ea DAILY PRN MISC . 06/23/17 08:45 07/23/17 08:44 Vancomycin HCl/ Dextrose (Vancomycin/D5W) 275 ml @ 183.708 mls/hr Q12H IVPB 06/23/17 12:00 06/28/17 11:59 06/23/17 23:53 ODETTE SMILEY Jun 24, 2017 10:52
[2017-06-24] MEDS ORDERED: KCl 10% 40mEq/30ml liquid GT ONE (11:00)
--- NOTE | 2017-06-24 11:40 | Diagnostic Imaging Report ---
APPROVED REPORT CPT Code: 90526 Present Symptoms Comments: R/O DVT Line(Right CFV) BILATERAL: Imaging reveals a patent deep venous system bilaterally. There is no evidence of thrombus within the femoral, popliteal or tibial segments. The greater saphenous veins are also within normal limits. Doppler indicates normal spontaneous flow within these segments.
[2017-06-24 12:00] VITALS: BP 113/66
[2017-06-24] MEDS: Vancomycin 750mg/D5W 275ml IVPB SCH ×2 (12:00)
--- NOTE | 2017-06-24 14:32 | Infectious Diseases Prog Note ---
Assessment/Plan Assessment/Plan ASSESSMENT: 1) Septic shock--not on pressors, hypotension resolved s/p fluid bolus. Likely secondary to hypovolemia secondary to dehydration, UTI, and possible sepsis from chronic sacral wound. appreciate wound care eval; his sacrococcygeal ulcer doesn't have the foul smell it did in early May2017 s/p Dakin's. prior surgical eval. 2) Dehydration--based on exam, serum Na, BUn/Cr ratio 3) Stage IV sacral decubitus ulcers --recent wcx: MDR ACB, C albicans, and KPC (sensitive only to colistin) during early May2017, his sacral decubitus ulcer probes to bone. has been evaluated by surgery and not considered surgical candidate, and he's received close care from the wound team, previously receiving Dakin's and chemical debridement of foul smelling fibrinous exudate centrally 4) Chronic sacrococcygeal osteomyelitis. see #3 above. 5) Leukocytosis 6) Fever, low grade, resolved 7) Elevated alk phos, stable s/p u/s 06/13 with some GB wall thickening, no definite stone, acute acalculous cholecystitis not entirely excluded 8) HCV Ab+, no transaminitis currently. HIV negative on last admission 9) s/p diarrhea. no active diarrhea. recent C diff on last admission negative 10) h/o recurrent HCAP/VAP--MDR-ACB, KPC, Providencia, XDR Pseudomonas. No bacteremia documented in 2017. s/p treatment, no evidence of recurrence s/p (06/17 s/p vancomycin, cefepime D#7) (06/15 s/p amikacin D#4) (06/14 s/p flagyl D#2) (06/12 s/p ertapenem x1) (05/27 s/p tigecycline and colistin D#14/14, meropenem D#10/10) (05/15 s/p IV vancomycin and zosyn D#5) s/p D#7 meroepenem and inhaled colistin (03/13 s/p vancomycin and zosyn D#5) 11) elevated ESR (117), low elevation of CRP Chronic anoxic encephalopathy--mentation at baseline -h/o cardiac arrest Borderline hypernatremia Cachexia with elevated CEA, normal PSA Acute on chronic anemia Sinus tachycardia respiratory alkalosis Chronic VDRF, s/p trach and PEG Cardiomyopathy s/p defibrillatory placement Paroxysmal Afib [facility] resident MDRO colonized NKDA hypokalemia AM cortisol negative for adrenal insufficiency Full code? PLAN: --Continue empiric IV zosyn and vancomycin. This is an appropriate choice for UTI pending culture results. Since he's defervesced, WBC declining, and is no longer hypotensive, there is no indication to add on empiric IV colistin currently, despite prior h/o MDR ACB and KPC (sensitive only to colistin) previously isolated from this chronic sacral wound. --Follow up sputum, urine, and blood cultures --monitor CBC and temperatures --RUQ u/s to r/o biliary source, but I suspect his mild alk phos elevation coming from bone (sacralcoccygeal osteo) --Monitor CMP. --Monitor Chest X-ray --Ventilatory support, tracheostomy care, aspiration precautions. --Wound care s/p wound care consult. Subjective ROS Limited/Unobtainable: Yes Allergies: Coded Allergies: No Known Allergies (Unverified , 03/07/17) Objective Vital Signs Last 24 Hour Vital Signs Date Time Temp Pulse Resp B/P Pulse Ox O2 Delivery O2 Flow Rate FiO2 06/24/17 13:00 104 20 30 06/24/17 12:00 30 06/24/17 12:00 97.7 108 20 113/66 100 Mechanical Ventilator 30 06/24/17 11:40 104 06/24/17 11:28 103 16 30 06/24/17 09:28 109 21 30 06/24/17 08:55 115/57 06/24/17 08:54 107 115/57 06/24/17 08:00 30 06/24/17 08:00 101 06/24/17 08:00 97.7 107 21 115/57 100 Mechanical Ventilator 30 06/24/17 07:28 107 20 30 06/24/17 04:47 101 20 30 06/24/17 04:30 98.7 102 21 114/67 100 Mechanical Ventilator 30 06/24/17 04:00 109 06/24/17 04:00 30 06/24/17 03:09 108 20 30 06/24/17 01:14 109 20 30 06/24/17 00:00 112 06/24/17 00:00 98.3 115 20 103/58 100 Mechanical Ventilator 30 06/24/17 00:00 30 06/23/17 22:58 113 20 30 06/23/17 21:14 115 88/49 06/23/17 20:55 115 26 30 06/23/17 20:00 98.2 117 20 88/49 100 Mechanical Ventilator 30 06/23/17 20:00 30 06/23/17 20:00 118 06/23/17 18:56 117 20 30 06/23/17 17:10 117 21 30 06/23/17 16:32 98.0 112 20 88/53 100 Mechanical Ventilator 30 06/23/17 16:00 30 06/23/17 16:00 115 06/23/17 15:21 112 22 30 Height (Feet): 5 Height (Inches): 7.00 Weight (Pounds): 125 Objective General Appearance: cachetic, eyes open, responds to simple commands, follows examiner with his eyes Lines, tubes and drains: peripheral IV, trach. R inguinal CVC TLC HEENT: normocephalic with temporal wasting Neck: non-tender, normal alignment Respiratory/Chest: chest wall non-tender, lungs clear Cardiovascular/Chest: normal peripheral pulses, tachycardic Abdomen: normal bowel sounds, non tender. G tube in place. no surrounding erythema. Genitourinary/Rectal: normal genital exam. faint groin erythema Extremities: normal range of motion Skin Exam: normal pigmentation. multiple decubitus ulcers, including non infected b/l posterior auricles. did not exam known Stage IV sacral decub. ischial ulcers. 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 Microbiology Date/Time Source Procedure Growth Status 06/23/17 08:30 Blood Blood Culture - Preliminary Resulted 06/23/17 03:05 Urine,Clean Catch Urine Culture - Preliminary NO GROWTH Resulted Laboratory Tests Test 06/24/17 04:00 06/24/17 11:15 White Blood Count 13.3 K/UL (4.8-10.8) H Red Blood Count 2.79 M/UL (4.70-6.10) L Hemoglobin 8.1 G/DL (14.2-18.0) L Hematocrit 25.5 % (42.0-52.0) L Mean Corpuscular Volume 92 FL (80-99) Mean Corpuscular Hemoglobin 28.9 PG (27.0-31.0) Mean Corpuscular Hemoglobin Concent 31.6 G/DL (32.0-36.0) L Red Cell Distribution Width 18.2 % (11.6-14.8) H Platelet Count 440 K/UL (150-450) Mean Platelet Volume 6.6 FL (6.5-10.1) Neutrophils (%) (Auto) 80.1 % (45.0-75.0) H Lymphocytes (%) (Auto) 14.7 % (20.0-45.0) L Monocytes (%) (Auto) 3.6 % (1.0-10.0) Eosinophils (%) (Auto) 0.7 % (0.0-3.0) Basophils (%) (Auto) 0.9 % (0.0-2.0) Sodium Level 146 mEQ/L (135-145) H Potassium Level 2.9 mEQ/L (3.4-4.9) #L Chloride Level 111 mEQ/L (98-107) H Carbon Dioxide Level 27 mEQ/L (20-30) Anion Gap 8 (5-15) Blood Urea Nitrogen 31 mg/dL (7-23) #H Creatinine 0.5 mg/dL (0.7-1.2) L Estimat Glomerular Filtration Rate > 60 mL/min (>60) Glucose Level 97 mg/dL (74-106) Calcium Level 8.2 mg/dL (8.6-10.2) L Phosphorus Level 3.2 mg/dL (2.5-4.8) Albumin 1.8 g/dL (3.5-5.2) L Cortisol AM Sample 27.1 ug/dL (6.0-20.0) H Vancomycin Level Trough 28.0 ug/mL (5.0-12.0) H Current Medications Medications (Trade) Dose Ordered Sig/Tameka Route PRN Reason Start Time Stop Time Status Last Admin Dose Admin Acetaminophen (Tylenol) 650 mg Q4H PRN ORAL Mild Pain/Temp > 100.5 06/23/17 05:00 07/23/17 04:59 Albuterol/ Ipratropium (DuoNeb 0.5-3(2.5)mg/3ml) 3 ml Q4H PRN HHN Shortness of Breath 06/23/17 07:15 06/28/17 07:14 Amiodarone HCl (Cordarone) 200 mg DAILY GT 06/23/17 09:00 07/23/17 08:59 06/24/17 08:56 Carvedilol (Coreg) 3.125 mg Q12HR GT 06/23/17 09:00 07/23/17 08:59 06/24/17 08:54 Chlorhexidine Gluconate (Anny-Hex 2%) 1 applic DAILY TOPIC 06/24/17 00:30 07/24/17 00:29 06/24/17 08:55 Dextrose STAT PRN IV Hypoglycemia 06/23/17 07:15 07/23/17 07:14 Heparin Sodium (Porcine) (Heparin 5000 units/ml) 5,000 units EVERY 12 HOURS SUBQ 06/23/17 09:00 07/23/17 08:59 06/24/17 08:55 Levetiracetam (Keppra) 500 mg Q12HR GT 06/23/17 09:00 07/23/17 08:59 06/24/17 08:54 Lisinopril (Prinivil) 10 mg DAILY GT 06/23/17 09:00 07/23/17 08:59 06/24/17 08:55 Lorazepam (Ativan 2mg/ml 1ml) 2 mg Q2H PRN IV For Anxiety 06/23/17 07:15 06/30/17 07:14 Morphine Sulfate (Morphine Sulfate) 4 mg Q4H PRN IVP Severe Pain (Pain Scale 7-10) 06/23/17 07:15 06/30/17 07:14 Ondansetron HCl (Zofran) 4 mg Q6H PRN IVP Nausea & Vomiting 06/23/17 07:15 07/23/17 07:14 Pantoprazole (Protonix) 40 mg DAILY IV 06/23/17 09:00 07/23/17 08:59 06/24/17 08:55 Piperacillin Sod/ Tazobactam Sod/ Sodium Chloride (Zosyn/Sodium Chloride) 110 ml @ 27.5 mls/hr Q8HR IVPB 06/23/17 14:00 06/30/17 13:59 06/24/17 14:25 Polyethylene Glycol 17 gm 17 gm DAILYPRN PRN GT Constipation 06/23/17 08:18 07/23/17 07:14 Vancomycin HCl (Vanco rx to dose) 1 ea DAILY PRN MISC . 06/23/17 08:45 07/23/17 08:44 Vancomycin HCl/ Dextrose (Vancomycin/D5W) 275 ml @ 183.708 mls/hr Q12H IVPB 06/23/17 12:00 06/28/17 11:59 06/23/17 23:53 Colby Friend M.D. Jun 24, 2017 14:32
--- NOTE | 2017-06-24 15:02 | Consultation ---
Consult Note Consult Note asked to eval for electrolyte imbalance Know to me from his previous admission Admitted with sepsis examined- data reviewed Assessment/Plan (1) Acute on chronic respiratory failure (2) Septic shock, LOW BP on admit (3) Hypernatremia, Free water deficit (4) Feeding by G-tube (5) EF of 30 (6) High LFTs Plan; D5w K supplement Antibiotics Monitor renal parameters- Prone to acute renal failure due to antibiotics continue to monitor CRICKET MITCHELL Jun 24, 2017 15:02
[2017-06-24 16:00] VITALS: BP 110/64
--- NOTE | 2017-06-24 18:55 | Cardiology Report ---
APPROVED REPORT EKG Measurement Heart [id number] Sinus tachycardia Otherwise normal ECG
[2017-06-24 20:00] VITALS: BP 101/62
[2017-06-24] MEDS ORDERED: Vancomycin 1 GM in D5W 275 ML IV SCH (23:00)
[2017-06-25] VITALS (7 sets, daily range): BP systolic 97–117; BP diastolic 54–72
[2017-06-25] MEDS: Vancomycin 1gm/D5W 275ml IVPB SCH ×2 (02:14)
[2017-06-25] MEDS: Piperacillin/Tazobactam 3.375 GM in NS 110 ML IVPB SCH ×3 (05:05→21:01)
--- NOTE | 2017-06-25 05:54 | Infectious Diseases Prog Note ---
Assessment/Plan Assessment/Plan ASSESSMENT: 1) Septic shock--not on pressors, hypotension resolved s/p fluid bolus. Likely secondary to hypovolemia secondary to dehydration, UTI, and possible sepsis from chronic sacral wound. appreciate wound care eval; his sacrococcygeal ulcer doesn't have the foul smell it did in early May2017 s/p Dakin's. prior surgical eval. 2) Dehydration--based on exam, serum Na, BUn/Cr ratio 3) Stage IV sacral decubitus ulcers --recent wcx: MDR ACB, C albicans, and KPC (sensitive only to colistin) during early May2017, his sacral decubitus ulcer probes to bone. has been evaluated by surgery and not considered surgical candidate, and he's received close care from the wound team, previously receiving Dakin's and chemical debridement of foul smelling fibrinous exudate centrally 4) Chronic sacrococcygeal osteomyelitis. see #3 above. 5) Leukocytosis 6) Fever, low grade, resolved 7) Elevated alk phos, stable s/p u/s 06/13 with some GB wall thickening, no definite stone, acute acalculous cholecystitis not entirely excluded 8) HCV Ab+, no transaminitis currently. HIV negative on last admission 9) s/p diarrhea. no active diarrhea. recent C diff on last admission negative 10) h/o recurrent HCAP/VAP--MDR-ACB, KPC, Providencia, XDR Pseudomonas. No bacteremia documented in 2017. s/p treatment, no evidence of recurrence s/p (06/17 s/p vancomycin, cefepime D#7) (06/15 s/p amikacin D#4) (06/14 s/p flagyl D#2) (06/12 s/p ertapenem x1) (05/27 s/p tigecycline and colistin D#14/14, meropenem D#10/10) (05/15 s/p IV vancomycin and zosyn D#5) s/p D#7 meroepenem and inhaled colistin (03/13 s/p vancomycin and zosyn D#5) 11) elevated ESR (117), low elevation of CRP Chronic anoxic encephalopathy--mentation at baseline -h/o cardiac arrest Borderline hypernatremia Cachexia with elevated CEA, normal PSA Acute on chronic anemia Sinus tachycardia respiratory alkalosis Chronic VDRF, s/p trach and PEG Cardiomyopathy s/p defibrillatory placement Paroxysmal Afib Care Home resident MDRO colonized NKDA hypokalemia AM cortisol negative for adrenal insufficiency Full code? PLAN: --Continue empiric IV zosyn and vancomycin D#3. This is an appropriate choice for UTI pending culture results. Since he's defervesced, WBC declining, and is no longer hypotensive, there is no indication to add on empiric IV colistin currently, despite prior h/o MDR ACB and KPC (sensitive only to colistin) previously isolated from this chronic sacral wound. --Follow up sputum, urine, and blood cultures --monitor CBC and temperatures --RUQ u/s to r/o biliary source, but I suspect his mild alk phos elevation coming from bone (sacralcoccygeal osteo) --Monitor CMP. --Monitor Chest X-ray --Ventilatory support, tracheostomy care, aspiration precautions. --Wound care s/p wound care consult. --s/p nephro consult Subjective ROS Limited/Unobtainable: Yes Allergies: Coded Allergies: No Known Allergies (Unverified , 03/07/17) Objective Vital Signs Last 24 Hour Vital Signs Date Time Temp Pulse Resp B/P Pulse Ox O2 Delivery O2 Flow Rate FiO2 06/25/17 05:25 110 24 30 06/25/17 04:16 112 24 30 06/25/17 04:00 98.1 109 16 105/62 100 Mechanical Ventilator 30.0 06/25/17 04:00 30 06/25/17 04:00 111 06/25/17 01:40 101 25 30 06/25/17 00:00 110 06/25/17 00:00 30 06/25/17 00:00 97.5 116 16 117/68 94 Mechanical Ventilator 30.0 06/24/17 22:49 106 27 30 06/24/17 21:28 99 18 30 06/24/17 21:00 88 101/62 06/24/17 20:00 30 06/24/17 20:00 98.1 100 22 101/62 98 Mechanical Ventilator 30 06/24/17 20:00 105 06/24/17 19:24 101 21 30 06/24/17 16:49 103 21 30 06/24/17 16:00 30 06/24/17 16:00 97.9 105 22 110/64 100 Mechanical Ventilator 30 06/24/17 15:27 107 06/24/17 15:25 101 16 30 06/24/17 13:00 104 20 30 06/24/17 12:00 30 06/24/17 12:00 97.7 108 20 113/66 100 Mechanical Ventilator 30 06/24/17 11:40 104 06/24/17 11:28 103 16 30 06/24/17 09:28 109 21 30 06/24/17 08:55 115/57 06/24/17 08:54 107 115/57 06/24/17 08:00 30 06/24/17 08:00 101 06/24/17 08:00 97.7 107 21 115/57 100 Mechanical Ventilator 30 06/24/17 07:28 107 20 30 Height (Feet): 5 Height (Inches): 7.00 Weight (Pounds): 125 Objective General Appearance: cachetic, eyes open, responds to simple commands, follows examiner with his eyes, comfortable appearing Lines, tubes and drains: peripheral IV, trach. R inguinal CVC TLC HEENT: normocephalic with temporal wasting Neck: non-tender, normal alignment Respiratory/Chest: chest wall non-tender, lungs clear Cardiovascular/Chest: normal peripheral pulses, tachycardic Abdomen: normal bowel sounds, non tender. G tube in place. no surrounding erythema. Genitourinary/Rectal: normal genital exam. faint groin erythema Extremities: normal range of motion Skin Exam: normal pigmentation. multiple decubitus ulcers, including non infected b/l posterior auricles. did not examine known Stage IV sacral decub. ischial ulcers. 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 Microbiology Date/Time Source Procedure Growth Status 06/23/17 08:40 Blood Blood Culture - Preliminary NO GROWTH AFTER 24 HOURS Resulted 06/23/17 08:30 Blood Blood Culture - Preliminary Resulted 06/23/17 03:05 Urine,Clean Catch Urine Culture - Preliminary NO GROWTH Resulted Laboratory Tests Test 06/24/17 11:15 06/25/17 03:45 Vancomycin Level Trough 28.0 ug/mL (5.0-12.0) H White Blood Count Pending Red Blood Count Pending Hemoglobin Pending Hematocrit Pending Mean Corpuscular Volume Pending Mean Corpuscular Hemoglobin Pending Mean Corpuscular Hemoglobin Concent Pending Red Cell Distribution Width Pending Platelet Count Pending Mean Platelet Volume Pending Neutrophils (%) (Auto) Pending Lymphocytes (%) (Auto) Pending Monocytes (%) (Auto) Pending Eosinophils (%) (Auto) Pending Basophils (%) (Auto) Pending Prothrombin Time Pending Prothromb Time International Ratio Pending Activated Partial Thromboplast Time Pending Sodium Level Pending Potassium Level Pending Chloride Level Pending Carbon Dioxide Level Pending Blood Urea Nitrogen Pending Creatinine Pending Estimat Glomerular Filtration Rate Pending Glucose Level Pending Uric Acid Pending Calcium Level Pending Phosphorus Level Pending Magnesium Level Pending Total Bilirubin Pending Aspartate Amino Transf (AST/SGOT) Pending Alanine Aminotransferase (ALT/SGPT) Pending Alkaline Phosphatase Pending C-Reactive Protein, Quantitative Pending Pro-B-Type Natriuretic Peptide Pending Total Protein Pending Albumin Pending Globulin Pending Current Medications Medications (Trade) Dose Ordered Sig/Tameka Route PRN Reason Start Time Stop Time Status Last Admin Dose Admin Acetaminophen (Tylenol) 650 mg Q4H PRN ORAL Mild Pain/Temp > 100.5 06/23/17 05:00 07/23/17 04:59 Albuterol/ Ipratropium (DuoNeb 0.5-3(2.5)mg/3ml) 3 ml Q4H PRN HHN Shortness of Breath 06/23/17 07:15 06/28/17 07:14 Amiodarone HCl (Cordarone) 200 mg DAILY GT 06/23/17 09:00 07/23/17 08:59 06/24/17 08:56 Carvedilol (Coreg) 6.25 mg Q12HR GT 06/24/17 21:00 07/24/17 20:59 Chlorhexidine Gluconate 1 applic 1 applic DAILY TOPIC 06/24/17 00:30 07/24/17 00:29 06/24/17 08:55 Dextrose STAT PRN IV Hypoglycemia 06/23/17 07:15 07/23/17 07:14 Heparin Sodium (Porcine) (Heparin 5000 units/ml) 5,000 units EVERY 12 HOURS SUBQ 06/23/17 09:00 07/23/17 08:59 06/24/17 20:47 Levetiracetam (Keppra) 500 mg Q12HR GT 06/23/17 09:00 07/23/17 08:59 06/24/17 20:46 Lisinopril (Zestril) 2.5 mg DAILY GT 06/25/17 09:00 07/25/17 08:59 Lorazepam (Ativan 2mg/ml 1ml) 2 mg Q2H PRN IV For Anxiety 06/23/17 07:15 06/30/17 07:14 Morphine Sulfate (Morphine Sulfate) 4 mg Q4H PRN IVP Severe Pain (Pain Scale 7-10) 06/23/17 07:15 06/30/17 07:14 Ondansetron HCl (Zofran) 4 mg Q6H PRN IVP Nausea & Vomiting 06/23/17 07:15 07/23/17 07:14 Pantoprazole (Protonix) 40 mg DAILY IV 06/23/17 09:00 07/23/17 08:59 06/24/17 08:55 Piperacillin Sod/ Tazobactam Sod/ Sodium Chloride (Zosyn/Sodium Chloride) 110 ml @ 27.5 mls/hr Q8HR IVPB 06/23/17 14:00 06/30/17 13:59 06/25/17 05:05 Polyethylene Glycol (Miralax) 17 gm DAILYPRN PRN GT Constipation 06/23/17 08:18 07/23/17 07:14 Vancomycin HCl (Vanco rx to dose) 1 ea DAILY PRN MISC . 06/23/17 08:45 07/23/17 08:44 Vancomycin HCl/ Dextrose (Vancomycin/D5W) 275 ml @ 183.708 mls/hr Q24H IVPB 06/25/17 03:00 06/30/17 02:59 06/25/17 02:14 Colby Friend M.D. Jun 25, 2017 05:54
[2017-06-25 06:06] LABS: MEAN CORPUSCULAR HEMOGLOBIN 28.2 PG (27.0-31.0); MEAN CORPUSCULAR HGB CONC 31.2 G/DL (32.0-36.0); MEAN CORPUSCULAR VOLUME 90 FL (80-99); MEAN PLATELET VOLUME 6.6 FL (6.5-10.1); PLATELET COUNT 535 K/UL (150-450); RED BLOOD COUNT 2.82 M/UL (4.70-6.10); RED CELL DISTRIBUTION WIDTH 17.5 % (11.6-14.8)
[2017-06-25 06:18] LABS: INR 1.1 (0.9-1.1); PROTHROMBIN TIME 11.5 SEC (9.30-11.50)
[2017-06-25 06:28] LABS: ALANINE AMINOTRANSFERASE 21 U/L (3-41); ALBUMIN/GLOBULIN RATIO 0.5 (1.0-2.7); ANION GAP 12 (5-15); ASPARTATE AMINO TRANSFERASE 20 U/L (5-40); CALCIUM 8.4 mg/dL (8.6-10.2); CARBON DIOXIDE 25 mEQ/L (20-30); CHLORIDE 113 mEQ/L (98-107); CREATININE 0.5 mg/dL (0.7-1.2); GLOMERULAR FILTRATION RATE > 60 mL/min (>60); HEMOLYSIS 2; MAGNESIUM 1.7 mg/dL (1.7-2.5); POTASSIUM 3.1 mEQ/L (3.4-4.9); SODIUM 150 mEQ/L (135-145); TOTAL PROTEIN 6.2 g/dL (6.6-8.7)
[2017-06-25 07:06] LABS: CRP QUANT 1.8 mg/dL (< 0.5); URIC ACID 4.8 mg/dL (3.0-7.5)
[2017-06-25 08:12] LABS: ANISOCYTOSIS 1+; BAND NEUTROPHILS % (MANUAL) 0 % (0-8); BASOPHILS % (MANUAL) 1 % (0-2); EOSINOPHILS % (MANUAL) 2 % (0-3); HYPOCHROMASIA 3+; LYMPHOCYTES % (MANUAL) 18 % (20-45); NEUTROPHILS % (MANUAL) 74 % (45-75); PLATELET ESTIMATE ADEQUATE; PLATELET MORPHOLOGY NORMAL; TOTAL CELLS COUNTED 100
[2017-06-25] MEDS: Dyna-Hex 2% Top Sol 8oz TOPIC SCH (08:28)
[2017-06-25] MEDS: levETIRAcetam 500mg/5ml Liquid GT SCH ×2 (08:28→20:03)
[2017-06-25] MEDS: Amiodarone 200mg tab GT SCH (08:28)
[2017-06-25] MEDS: Pantoprazole Inj IV SCH (08:28)
[2017-06-25] MEDS: Heparin 5000 units/ml inj SUBQ SCH ×2 (08:30→20:03)
[2017-06-25] MEDS: Lisinopril 2.5mg tab GT SCH (09:00)
[2017-06-25] MEDS: KCl 10% 40mEq/30ml liquid GT SCH ×2 (09:38→17:37)
--- NOTE | 2017-06-25 10:52 | General Progress Note ---
Assessment/Plan Status: unchanged Assessment/Plan Status; (1) Acute on chronic respiratory failure (2) Septic shock, LOW BP on admit (3) Hypernatremia, Free water deficit (4) Feeding by G-tube (5) EF of 30 (6) High LFTs Plan; D5w K supplement Antibiotics Monitor renal parameters- Prone to acute renal failure due to antibiotics continue to monitor Subjective ROS Limited/Unobtainable: Yes Allergies: Coded Allergies: No Known Allergies (Unverified , 03/07/17) Objective Last 24 Hour Vital Signs Date Time Temp Pulse Resp B/P Pulse Ox O2 Delivery O2 Flow Rate FiO2 06/25/17 09:28 99.5 06/25/17 09:16 103 24 30 06/25/17 09:00 97/56 06/25/17 09:00 103 97/56 06/25/17 08:01 107 06/25/17 08:00 30 06/25/17 08:00 100.7 103 27 97/56 100 Mechanical Ventilator 30 06/25/17 06:59 106 22 30 06/25/17 05:25 110 24 30 06/25/17 04:16 112 24 30 06/25/17 04:00 98.1 109 16 105/62 100 Mechanical Ventilator 30.0 06/25/17 04:00 30 06/25/17 04:00 111 06/25/17 01:40 101 25 30 06/25/17 00:00 110 06/25/17 00:00 30 06/25/17 00:00 97.5 116 16 117/68 94 Mechanical Ventilator 30.0 06/24/17 22:49 106 27 30 06/24/17 21:28 99 18 30 06/24/17 21:00 88 101/62 06/24/17 20:00 30 06/24/17 20:00 98.1 100 22 101/62 98 Mechanical Ventilator 30 06/24/17 20:00 105 06/24/17 19:24 101 21 30 06/24/17 16:49 103 21 30 06/24/17 16:00 30 06/24/17 16:00 97.9 105 22 110/64 100 Mechanical Ventilator 30 06/24/17 15:27 107 06/24/17 15:25 101 16 30 06/24/17 13:00 104 20 30 8/8/17 12:00 30 06/24/17 12:00 97.7 108 20 113/66 100 Mechanical Ventilator 30 06/24/17 11:40 104 06/24/17 11:28 103 16 30 Intake and Output 06/24/17 06/25/17 19:00 07:00 Intake Total 630.0 ml 1577.5 ml Output Total 300 ml 600 ml Balance 330.0 ml 977.5 ml Free Water 200 ml 600 ml IV Total 220.0 ml 477.5 ml Tube Feeding 90 ml 500 ml Other 120 ml Output Urine Total 300 ml 600 ml # Bowel Movements 2 4 Laboratory Tests 06/24/17 11:15: Vancomycin Level Trough 28.0H 06/25/17 03:45: White Blood Count 11.0H, Red Blood Count 2.82L, Hemoglobin 7.9L, Hematocrit 25.5L, Mean Corpuscular Volume 90, Mean Corpuscular Hemoglobin 28.2, Mean Corpuscular Hemoglobin Concent 31.2L, Red Cell Distribution Width 17.5H, Platelet Count 535H, Mean Platelet Volume 6.6, Neutrophils (%) (Auto) , Lymphocytes (%) (Auto) , Monocytes (%) (Auto) , Eosinophils (%) (Auto) , Basophils (%) (Auto) , Differential Total Cells Counted 100, Neutrophils % ( Manual) 74, Lymphocytes % (Manual) 18L, Monocytes % (Manual) 5, Eosinophils % ( Manual) 2, Basophils % (Manual) 1, Band Neutrophils 0, Platelet Estimate Adequate, Platelet Morphology Normal, Hypochromasia 3+, Anisocytosis 1+, Prothrombin Time 11.5, Prothromb Time International Ratio 1.1, Activated Partial Thromboplast Time 32, Sodium Level 150H, Potassium Level 3.1L, Chloride Level 113H, Carbon Dioxide Level 25, Anion Gap 12, Blood Urea Nitrogen 26H, Creatinine 0.5L, Estimat Glomerular Filtration Rate > 60, Glucose Level 121H, Uric Acid 4.8, Calcium Level 8.4L, Phosphorus Level 3.0, Magnesium Level 1.7, Total Bilirubin 0.2, Aspartate Amino Transf (AST/SGOT) 20, Alanine Aminotransferase (ALT/SGPT) 21, Alkaline Phosphatase 150H, C-Reactive Protein, Quantitative 1.8H, Pro-B-Type Natriuretic Peptide 1287H, Total Protein 6.2L, Albumin 2.2L, Globulin 4.0, Albumin/Globulin Ratio 0.5L Height (Feet): 5 Height (Inches): 7.00 Weight (Pounds): 125 General Appearance: no apparent distress Objective no change in PE CRICKET MITCHELL Jun 25, 2017 10:52
--- NOTE | 2017-06-25 11:41 | Pulmonology Progress Note ---
Assessment/Plan Problems: (1) Septic shock (2) Acute on chronic respiratory failure (3) EF of 30 (4) Feeding by G-tube Respiratory: monitor respiratory rate Cardiac: continue to monitor HR/BP Renal: F/U I&O, keep IV fluid Infectious Disease: check cultures, continue antibiotics Gastrointestinal: continue feedings/current rate Endocrine: monitor blood sugar Hematologic: monitor H/H, transfuse if hgb<8.5 Neurologic: keep patient comfortable Notes Reviewed: renal, ID Discussed with: nurses, consultants, immigration case worker Subjective ROS Limited/Unobtainable: No Constitutional: Reports: no symptoms HEENT: Repors: no symptoms Respiratory: Reports: no symptoms Allergies: Coded Allergies: No Known Allergies (Unverified , 03/07/17) Objective Last 24 Hour Vital Signs Date Time Temp Pulse Resp B/P Pulse Ox O2 Delivery O2 Flow Rate FiO2 06/25/17 10:53 102 20 30 06/25/17 09:28 99.5 06/25/17 09:16 103 24 30 06/25/17 09:00 97/56 06/25/17 09:00 103 97/56 06/25/17 08:01 107 06/25/17 08:00 30 06/25/17 08:00 100.7 103 27 97/56 100 Mechanical Ventilator 30 06/25/17 06:59 106 22 30 06/25/17 05:25 110 24 30 06/25/17 04:16 112 24 30 06/25/17 04:00 98.1 109 16 105/62 100 Mechanical Ventilator 30.0 06/25/17 04:00 30 06/25/17 04:00 111 06/25/17 01:40 101 25 30 06/25/17 00:00 110 06/25/17 00:00 30 06/25/17 00:00 97.5 116 16 117/68 94 Mechanical Ventilator 30.0 06/24/17 22:49 106 27 30 06/24/17 21:28 99 18 30 06/24/17 21:00 88 101/62 06/24/17 20:00 30 06/24/17 20:00 98.1 100 22 101/62 98 Mechanical Ventilator 30 06/24/17 20:00 105 06/24/17 19:24 101 21 30 06/24/17 16:49 103 21 30 06/24/17 16:00 30 8/8/17 16:00 97.9 105 22 110/64 100 Mechanical Ventilator 30 06/24/17 15:27 107 06/24/17 15:25 101 16 30 06/24/17 13:00 104 20 30 06/24/17 12:00 30 06/24/17 12:00 97.7 108 20 113/66 100 Mechanical Ventilator 30 Intake and Output 06/24/17 06/25/17 19:00 07:00 Intake Total 630.0 ml 1577.5 ml Output Total 300 ml 600 ml Balance 330.0 ml 977.5 ml Free Water 200 ml 600 ml IV Total 220.0 ml 477.5 ml Tube Feeding 90 ml 500 ml Other 120 ml Output Urine Total 300 ml 600 ml # Bowel Movements 3 4 General Appearance: cachetic HEENT: normocephalic, atraumatic Respiratory/Chest: chest wall non-tender, lungs clear Cardiovascular: normal peripheral pulses, normal rate Abdomen: no organomegaly Genitourinary: normal external genitalia Extremities: no cyanosis Skin: no rash, no lesions 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: 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 Complete 06/23/17 03:05 Urine,Clean Catch Urine Culture - Preliminary NO GROWTH AFTER 24 HOURS Resulted Laboratory Tests 06/25/17 03:45: White Blood Count 11.0H, Red Blood Count 2.82L, Hemoglobin 7.9L, Hematocrit 25.5L, Mean Corpuscular Volume 90, Mean Corpuscular Hemoglobin 28.2, Mean Corpuscular Hemoglobin Concent 31.2L, Red Cell Distribution Width 17.5H, Platelet Count 535H, Mean Platelet Volume 6.6, Neutrophils (%) (Auto) , Lymphocytes (%) (Auto) , Monocytes (%) (Auto) , Eosinophils (%) (Auto) , Basophils (%) (Auto) , Differential Total Cells Counted 100, Neutrophils % ( Manual) 74, Lymphocytes % (Manual) 18L, Monocytes % (Manual) 5, Eosinophils % ( Manual) 2, Basophils % (Manual) 1, Band Neutrophils 0, Platelet Estimate Adequate, Platelet Morphology Normal, Hypochromasia 3+, Anisocytosis 1+, Prothrombin Time 11.5, Prothromb Time International Ratio 1.1, Activated Partial Thromboplast Time 32, Sodium Level 150H, Potassium Level 3.1L, Chloride Level 113H, Carbon Dioxide Level 25, Anion Gap 12, Blood Urea Nitrogen 26H, Creatinine 0.5L, Estimat Glomerular Filtration Rate > 60, Glucose Level 121H, Uric Acid 4.8, Calcium Level 8.4L, Phosphorus Level 3.0, Magnesium Level 1.7, Total Bilirubin 0.2, Aspartate Amino Transf (AST/SGOT) 20, Alanine Aminotransferase (ALT/SGPT) 21, Alkaline Phosphatase 150H, C-Reactive Protein, Quantitative 1.8H, Pro-B-Type Natriuretic Peptide 1287H, Total Protein 6.2L, Albumin 2.2L, Globulin 4.0, Albumin/Globulin Ratio 0.5L Current Medications Medications (Trade) Dose Ordered Sig/Tameka Route PRN Reason Start Time Stop Time Status Last Admin Dose Admin Acetaminophen (Tylenol) 650 mg Q4H PRN ORAL Mild Pain/Temp > 100.5 06/23/17 05:00 07/23/17 04:59 06/25/17 08:29 Albuterol/ Ipratropium (DuoNeb 0.5-3(2.5)mg/3ml) 3 ml Q4H PRN HHN Shortness of Breath 06/23/17 07:15 06/28/17 07:14 Amiodarone HCl (Cordarone) 200 mg DAILY GT 06/23/17 09:00 07/23/17 08:59 06/25/17 08:28 Carvedilol (Coreg) 6.25 mg Q12HR GT 06/24/17 21:00 07/24/17 20:59 Chlorhexidine Gluconate 1 applic 1 applic DAILY TOPIC 06/24/17 00:30 07/24/17 00:29 06/25/17 08:28 Dextrose (D5W 1000ml) 1,000 ml @ 75 mls/hr [id number] IV 06/25/17 11:00 06/26/17 00:19 06/25/17 11:01 Dextrose STAT PRN IV Hypoglycemia 06/23/17 07:15 07/23/17 07:14 Heparin Sodium (Porcine) (Heparin 5000 units/ml) 5,000 units EVERY 12 HOURS SUBQ 06/23/17 09:00 07/23/17 08:59 06/25/17 08:30 Levetiracetam (Keppra) 500 mg Q12HR GT 06/23/17 09:00 07/23/17 08:59 06/25/17 08:28 Lisinopril (Zestril) 2.5 mg DAILY GT 06/25/17 09:00 07/25/17 08:59 Lorazepam (Ativan 2mg/ml 1ml) 2 mg Q2H PRN IV For Anxiety 06/23/17 07:15 06/30/17 07:14 Morphine Sulfate (Morphine Sulfate) 4 mg Q4H PRN IVP Severe Pain (Pain Scale 7-10) 06/23/17 07:15 06/30/17 07:14 Ondansetron HCl (Zofran) 4 mg Q6H PRN IVP Nausea & Vomiting 06/23/17 07:15 07/23/17 07:14 Pantoprazole (Protonix) 40 mg DAILY IV 06/23/17 09:00 07/23/17 08:59 06/25/17 08:28 Piperacillin Sod/ Tazobactam Sod/ Sodium Chloride (Zosyn/Sodium Chloride) 110 ml @ 27.5 mls/hr Q8HR IVPB 06/23/17 14:00 06/30/17 13:59 06/25/17 05:05 Polyethylene Glycol (Miralax) 17 gm DAILYPRN PRN GT Constipation 06/23/17 08:18 07/23/17 07:14 Potassium Chloride 40 meq 40 meq TWICE A DAY GT 06/25/17 09:30 07/25/17 09:29 06/25/17 09:38 Vancomycin HCl (Vanco rx to dose) 1 ea DAILY PRN MISC . 06/23/17 08:45 07/23/17 08:44 Vancomycin HCl/ Dextrose (Vancomycin/D5W) 275 ml @ 183.708 mls/hr Q24H IVPB 06/25/17 03:00 06/30/17 02:59 06/25/17 02:14 ODETTE SMILEY Jun 25, 2017 11:41
--- NOTE | 2017-06-25 11:58 | Diagnostic Imaging Report ---
Indication: DYSPNEA Technique: One view of the chest Comparison: 06/23/2017 Findings: There is a left chest bifocal AICD. There is a tracheostomy. Lungs and pleural spaces are clear. Heart size is normal. Previously demonstrated perihilar atelectatic changes are not evident currently Impression: No acute process
[2017-06-26] MEDS: Vancomycin 1gm/D5W 275ml IVPB SCH ×2 (02:17)
[2017-06-26 04:00] VITALS: BP 110/71
[2017-06-26] MEDS: Piperacillin/Tazobactam 3.375 GM in NS 110 ML IVPB SCH ×2 (05:06→13:59)
[2017-06-26 08:00] VITALS: BP 117/75
[2017-06-26] MEDS: Heparin 5000 units/ml inj SUBQ SCH (09:00)
[2017-06-26] MEDS: levETIRAcetam 500mg/5ml Liquid GT SCH (09:00)
[2017-06-26] MEDS: KCl 10% 40mEq/30ml liquid GT SCH ×2 (09:50→17:53)
[2017-06-26] MEDS: Lisinopril 2.5mg tab GT SCH (09:52)
[2017-06-26] MEDS: Amiodarone 200mg tab GT SCH (09:53)
[2017-06-26] MEDS: Pantoprazole Inj IV SCH (10:11)
--- NOTE | 2017-06-26 10:44 | Pulmonology Progress Note ---
Assessment/Plan Problems: (1) Septic shock (2) Acute on chronic respiratory failure (3) EF of 30 (4) Feeding by G-tube Respiratory: monitor respiratory rate, adjust FIO2, CXR Cardiac: continue to monitor HR/BP Renal: F/U I&O, keep IV fluid, check electrolytes Infectious Disease: check cultures, continue antibiotics Gastrointestinal: continue feedings/current rate Endocrine: monitor blood sugar, check TSH, continue sliding scale insulin Hematologic: monitor H/H, transfuse if hgb<8.5 Neurologic: PRN Ativan, PRN Morphine Affect: PRN ativan Prophylaxis: Protonix, Heparin Disposition: keep in ICU Notes Reviewed: manager style, cardio Discussed with: nurses, consultants, case loader operator Subjective ROS Limited/Unobtainable: Yes Interval Events: comfortable Constitutional: Reports: no symptoms Allergies: Coded Allergies: No Known Allergies (Unverified , 03/07/17) Objective Last 24 Hour Vital Signs Date Time Temp Pulse Resp B/P Pulse Ox O2 Delivery O2 Flow Rate FiO2 06/26/17 09:54 100 117/75 06/26/17 09:52 117/75 06/26/17 08:45 100 23 30 06/26/17 08:00 98 06/26/17 08:00 97.8 94 24 117/75 100 Mechanical Ventilator 30 06/26/17 07:09 100 23 30 06/26/17 05:00 100 23 30 06/26/17 04:00 30 06/26/17 04:00 87 06/26/17 04:00 99.0 100 27 110/71 100 Mechanical Ventilator 30 06/26/17 03:08 87 22 30 06/26/17 01:00 83 20 30 06/26/17 00:42 97.9 06/26/17 00:42 97.9 06/26/17 00:00 95 06/26/17 00:00 30 06/25/17 23:22 102 31 30 06/25/17 22:30 99.5 06/25/17 21:18 98 28 30 06/25/17 20:30 98.1 103 28 114/72 100 Mechanical Ventilator 06/25/17 20:02 112 114/72 06/25/17 20:00 98 06/25/17 20:00 30 06/25/17 19:15 101 30 30 06/25/17 16:30 105 26 30 06/25/17 16:00 30 06/25/17 16:00 98.5 103 24 109/65 100 Mechanical Ventilator 30 06/25/17 15:08 104 06/25/17 14:41 109 24 30 06/25/17 13:16 99.6 111 25 98/54 100 Mechanical Ventilator 30 06/25/17 12:58 112 25 30 06/25/17 12:00 99.6 111 25 98/54 100 Mechanical Ventilator 30 06/25/17 12:00 30 06/25/17 11:51 109 06/25/17 10:53 102 20 30 Intake and Output 06/25/17 06/26/17 19:00 07:00 Intake Total 2267.5 ml 2587.4 ml Output Total 500 ml Balance 2267.5 ml 2087.4 ml Free Water 600 ml 600 ml IV Total 567.5 ml 1207.4 ml Tube Feeding 730 ml 780 ml Blood Product 250 ml Other 120 ml Output Urine Total 500 ml # Bowel Movements 2 4 General Appearance: cachetic HEENT: normocephalic, atraumatic Respiratory/Chest: chest wall non-tender, lungs clear, normal breath sounds Cardiovascular: normal peripheral pulses, normal rate, regular rhythm Abdomen: normal bowel sounds, soft, non tender, non distended Extremities: no cyanosis Skin: no rash 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: 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 financial 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 normal, no motor/sensory deficits, alert Lymphatic: no groin adenopathy Microbiology Date/Time Source Procedure Growth Status 06/24/17 06:00 Sputum Gram Stain - Final Resulted 06/24/17 06:00 Sputum Culture - Preliminary Gram Negative Bacillus 1 Gram Negative Bacillus 2 Resulted Current Medications Medications (Trade) Dose Ordered Sig/Tameka Route PRN Reason Start Time Stop Time Status Last Admin Dose Admin Acetaminophen (Tylenol) 650 mg Q4H PRN ORAL Mild Pain/Temp > 100.5 06/23/17 05:00 07/23/17 04:59 06/25/17 23:43 Albuterol/ Ipratropium (DuoNeb 0.5-3(2.5)mg/3ml) 3 ml Q4H PRN HHN Shortness of Breath 06/23/17 07:15 06/28/17 07:14 Amiodarone HCl (Cordarone) 200 mg DAILY GT 06/23/17 09:00 9/6/17 08:59 06/26/17 09:53 Carvedilol (Coreg) 6.25 mg Q12HR GT 06/24/17 21:00 07/24/17 20:59 06/26/17 09:54 Dextrose STAT PRN IV Hypoglycemia 06/23/17 07:15 07/23/17 07:14 Heparin Sodium (Porcine) (Heparin 5000 units/ml) 5,000 units EVERY 12 HOURS SUBQ 06/23/17 09:00 07/23/17 08:59 06/26/17 09:00 Levetiracetam (Keppra) 500 mg Q12HR GT 06/23/17 09:00 07/23/17 08:59 06/26/17 09:00 Lisinopril (Zestril) 2.5 mg DAILY GT 06/25/17 09:00 07/25/17 08:59 06/26/17 09:52 Lorazepam (Ativan 2mg/ml 1ml) 2 mg Q2H PRN IV For Anxiety 06/23/17 07:15 06/30/17 07:14 Morphine Sulfate (Morphine Sulfate) 4 mg Q4H PRN IVP Severe Pain (Pain Scale 7-10) 06/23/17 07:15 06/30/17 07:14 Ondansetron HCl (Zofran) 4 mg Q6H PRN IVP Nausea & Vomiting 06/23/17 07:15 07/23/17 07:14 Pantoprazole (Protonix) 40 mg DAILY IV 06/23/17 09:00 07/23/17 08:59 06/26/17 10:11 Piperacillin Sod/ Tazobactam Sod/ Sodium Chloride (Zosyn/Sodium Chloride) 110 ml @ 27.5 mls/hr Q8HR IVPB 06/23/17 14:00 06/30/17 13:59 06/26/17 05:06 Polyethylene Glycol (Miralax) 17 gm DAILYPRN PRN GT Constipation 06/23/17 08:18 07/23/17 07:14 Potassium Chloride (KCl 10% 40mEq Oral solution) 40 meq TWICE A DAY GT 06/25/17 09:30 07/25/17 09:29 06/26/17 09:50 Vancomycin HCl 1 ea 1 ea DAILY PRN MISC . 06/23/17 08:45 07/23/17 08:44 Vancomycin HCl/ Dextrose (Vancomycin/D5W) 275 ml @ 183.708 mls/hr Q24H IVPB 06/25/17 03:00 06/30/17 02:59 06/26/17 02:17 ODETTE SMILEY Jun 26, 2017 10:44
--- NOTE | 2017-06-26 10:56 | General Progress Note ---
Assessment/Plan Status: stable Assessment/Plan Status; (1) Acute on chronic respiratory failure (2) Septic shock, LOW BP on admit (3) Hypernatremia, Free water deficit (4) Feeding by G-tube (5) EF of 30 (6) High LFTs Plan; no labs today- D5w K supplement Antibiotics Monitor renal parameters- Prone to acute renal failure due to antibiotics continue to monitor Subjective ROS Limited/Unobtainable: Yes Allergies: Coded Allergies: No Known Allergies (Unverified , 03/07/17) Objective Last 24 Hour Vital Signs Date Time Temp Pulse Resp B/P Pulse Ox O2 Delivery O2 Flow Rate FiO2 06/26/17 09:54 100 117/75 06/26/17 09:52 117/75 06/26/17 08:45 100 23 30 06/26/17 08:00 98 06/26/17 08:00 97.8 94 24 117/75 100 Mechanical Ventilator 30 06/26/17 07:09 100 23 30 06/26/17 05:00 100 23 30 06/26/17 04:00 30 06/26/17 04:00 87 06/26/17 04:00 99.0 100 27 110/71 100 Mechanical Ventilator 30 06/26/17 03:08 87 22 30 06/26/17 01:00 83 20 30 06/26/17 00:42 97.9 06/26/17 00:42 97.9 06/26/17 00:00 95 06/26/17 00:00 30 06/25/17 23:22 102 31 30 06/25/17 22:30 99.5 06/25/17 21:18 98 28 30 06/25/17 20:30 98.1 103 28 114/72 100 Mechanical Ventilator 30 06/25/17 20:02 112 114/72 06/25/17 20:00 98 06/25/17 20:00 30 06/25/17 19:15 101 30 30 06/25/17 16:30 105 26 30 06/25/17 16:00 30 06/25/17 16:00 98.5 103 24 109/65 100 Mechanical Ventilator 06/25/17 15:08 104 06/25/17 14:41 109 24 30 06/25/17 13:16 99.6 111 25 98/54 100 Mechanical Ventilator 06/25/17 12:58 112 25 30 8/9/17 12:00 99.6 111 25 98/54 100 Mechanical Ventilator 30 06/25/17 12:00 30 06/25/17 11:51 109 Intake and Output 06/25/17 06/26/17 19:00 07:00 Intake Total 2267.5 ml 2587.4 ml Output Total 500 ml Balance 2267.5 ml 2087.4 ml Free Water 600 ml 600 ml IV Total 567.5 ml 1207.4 ml Tube Feeding 730 ml 780 ml Blood Product 250 ml Other 120 ml Output Urine Total 500 ml # Bowel Movements 2 4 Height (Feet): 5 Height (Inches): 7.00 Weight (Pounds): 125 General Appearance: no apparent distress, lethargic Objective no change in PE CRICKET MITCHELL Jun 26, 2017 10:56
[2017-06-26 11:33] LABS: BASOPHILS % (AUTO) 0.6 % (0.0-2.0); MEAN CORPUSCULAR HEMOGLOBIN 29.1 PG (27.0-31.0); MEAN CORPUSCULAR HGB CONC 31.9 G/DL (32.0-36.0); MEAN CORPUSCULAR VOLUME 91 FL (80-99); MEAN PLATELET VOLUME 6.4 FL (6.5-10.1); MONOCYTES % (AUTO) 6.6 % (1.0-10.0); NEUTROPHILS % (AUTO) 78.8 % (45.0-75.0); PLATELET COUNT 484 K/UL (150-450); RED BLOOD COUNT 3.29 M/UL (4.70-6.10); RED CELL DISTRIBUTION WIDTH 16.8 % (11.6-14.8); WHITE BLOOD COUNT 11.1 K/UL (4.8-10.8)
[2017-06-26 11:53] LABS: ANION GAP 7 (5-15); CALCIUM 8.4 mg/dL (8.6-10.2); CARBON DIOXIDE 25 mEQ/L (20-30); CHLORIDE 113 mEQ/L (98-107); CREATININE 0.4 mg/dL (0.7-1.2); GLOMERULAR FILTRATION RATE > 60 mL/min (>60); HEMOLYSIS 4; POTASSIUM 4.8 mEQ/L (3.4-4.9); SODIUM 145 mEQ/L (135-145)
[2017-06-26 12:00] VITALS: BP 111/71
[2017-06-26 16:00] VITALS: BP 100/66
[2017-06-26] MEDS ORDERED: NS 275ml ONE ×2 (20:19)
[2017-06-26] MEDS ORDERED: Tubing IV Blood Pump IV ONE (20:19)
[2017-06-26] MEDS ORDERED: Tubing IV Secondary IV ONE (20:19)
--- NOTE | 2017-06-27 06:58 | Discharge Summary ---
Discharge Summary Hospital Course Date of Admission Jun 23, 2017 at 03:47 Date of Discharge Jun 26, 2017 at 20:20 Admitting Diagnosis Sepsis/Vent-dep HPI Yamil Wells is a 57 year old male who was admitted on Jun 23, 2017 at 03:47 for Sepsis/Vent-Dep Hospital Course [id number] Discharge Discharge Disposition Patient was discharged to SNF/Subacute Facility(03) Discharge Diagnoses: Miriam Lazo NP Jun 27, 2017 06:58
--- NOTE | 2017-06-28 01:30 | Discharge Summary 2 SIG ---
DATE OF ADMISSION: 06/23/2017 DATE OF DISCHARGE: 06/26/2017 CONSULTANTS: 1. Sanjay Garcia M.D. 2. Colby Friend M.D. 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 On evaluation at ED, the patient was tachycardic and hypotensive. Blood work showed leukocytosis. WBC was elevated to 15. Potassium 5.9. Urine WBC too many to count with 3+ leukocyte esterase. Negative nitrite. He was admitted to [facility] for sepsis and respiratory failure. Chest x-ray showed atelectasis and perihilar infiltrates bilaterally. He was having low-grade fever. Initial temperature was 100.2 degrees rectally. He was given IV Zosyn and vancomycin. He came in with multiple pressure sores including a stage IV sacral decubitus ulcer with recent culture showing MDR Acinetobacter, Liyah, and KPC, which was sensitive only to colistin during early May 2017. He received close wound care from wound care team. He presented with hypernatremia and was given D5 water. Renal parameters were monitored. He was continued on G-tube feed. Venous duplex of lower extremity was negative for DVT bilaterally. The patient defervesced. Repeat chest x-ray showed no acute process with presence of left bifocal AICD. Lungs and pleural spaces clear. He had an episode of drop in hemoglobin and was given one unit packed RBC blood transfusion. Post transfusion, hemoglobin was stable. The patient was eventually discharged back to detention. FINAL DIAGNOSES: 1. Septic shock. 2. Acute on chronic respiratory failure. 3. Dysphagia with feeding via gastrostomy tube. 4. Hypernatremia. 5. Elevated liver transaminases. 6. Dehydration. 7. Multiple decubitus pressure ulcers, present on admission. 8. Chronic anoxic encephalopathy. 9. Paroxysmal atrial fibrillation. 10. Cardiomyopathy with prior automatic implanted cardioverter-defibrillator placement. 11. Acute anemia requiring transfusion. DISPOSITION: The patient was discharged to [facility]. FOLLOWUP: To follow up with PMD at the detention. Shani Moses M.D. I have been assigned to dictate discharge summary on this account and I was not involved in the patient's management. Miriam Lazo N.P. DR: Mirian JOB#: [id number] CC: DEMAR
== END 2017-06-26 20:20 | DRG 720 ==
LOC: EDBD 02:40 → EMR 02:52 → 2W 03:47 → EDBEDREQ 03:51
PROC: 5A1945Z Respiratory Ventilation, 24-96 Consecutive Hours (ICD-10-PCS; principal; 2017-06-23)
PROC: 30233N1 Transfusion of Nonautologous Red Blood Cells into Peripheral Vein, Percutaneous Approach (ICD-10-PCS; 2017-06-25)
DX: A41.9 Sepsis, unspecified organism (principal); J96.21 Acute and chronic respiratory failure with hypoxia; R65.21 Severe sepsis with septic shock; Z99.11 Dependence on respirator [ventilator] status; G93.1 Anoxic brain damage, not elsewhere classified; L89.154 Pressure ulcer of sacral region, stage 4; Z93.0 Tracheostomy status; E87.0 Hyperosmolality and hypernatremia; Z93.1 Gastrostomy status; Z74.01 Bed confinement status; R00.0 Tachycardia, unspecified; D72.829 Elevated white blood cell count, unspecified; I69.391 Dysphagia following cerebral infarction; R13.10 Dysphagia, unspecified; I48.0 Paroxysmal atrial fibrillation; Z79.01 Long term (current) use of anticoagulants; Z95.810 Presence of automatic (implantable) cardiac defibrillator; D64.9 Anemia, unspecified; I25.5 Ischemic cardiomyopathy; L89.819 Pressure ulcer of head, unspecified stage; M46.28 Osteomyelitis of vertebra, sacral and sacrococcygeal region; R64 Cachexia; Z68.1 Body mass index [BMI] 19.9 or less, adult; E87.6 Hypokalemia; E86.1 Hypovolemia; N39.0 Urinary tract infection, site not specified
CPT/HCPCS: 36415; 71010; 76700; 80048; 80053; 80069; 80202; 81003; 82533; 82550; 82553; 83605; 83735; 83880; 84100; 84484; 84550; 85007; 85025; 85610; 85651; 85730; 86140; 86850; 86900; 86901; 86920; 87040; 87070; 87081; 87086; 87181; 87205; 87324; 93005; 93970; 94002; 94003; 94664

== ENCOUNTER 2017-07-08 22:09 | Inpatient (IN) | payer OTHER ==
[~2017-07-08] VITALS: Ht 172.7 cm; Wt 59.0 kg
[~2017-07-08 22:09] MED LIST changes: +FOLIC ACID1 MG ORAL; +KEPPRA500 M4 GT; +MIRALAX17 G2 ORAL
[2017-07-08] MEDS ORDERED: NS 1000ml 1,600 ML IVLG ONE (22:15)
[2017-07-08] MEDS ORDERED: Acetaminophen 650 MG SUPP RECTAL ONE (22:15)
--- NOTE | 2017-07-08 22:25 | Emergency Room Report ---
History of Present Illness General Source: Medical Record, EMS Present Illness HPI This is unfortunate 57-year-old male who has a history of the dependent respiratory failure, feeding tube and is bed bound. He has multiple admission for sepsis. He was just discharged recently. Patient presents with chief complaint of fever. History is through EMS, halfway note and medical records. Patient himself unable to give a history. Onset today. He was also tachycardic. Allergies: Coded Allergies: No Known Allergies (Unverified , 03/07/17) Patient History Past Medical History: see triage record, old chart reviewed Past Surgical History: other Pertinent Family History: none Social History: Denies: smoking Immunizations: other Reviewed Nursing Documentation: PMH: Agreed, PSxH: Agreed Nursing Documentation-PMH Hx Hypertension: Yes - HEP C, ANEMIA Hx Pacemaker: Yes Hx Diabetes: No Hx Cancer: No Hx Gastrointestinal Problems: Yes - GTUBE Hx Neurological Problems: Yes - ENCEPHALOPATHY Hx Cerebrovascular Accident: Yes Hx Seizures: Yes Review of Systems Constitutional: Reports: fever Respiratory: Reports: shortness of breath Cardiovascular: Reports: palpitations All Other Systems: limited - Secondary to his condition and he is nonverbal Physical Exam vitals with fever and tachycardia Sp02 EP Interpretation: abnormal General Appearance: moderate distress, cachetic, Chronically Ill Head: normocephalic, atraumatic Eyes: bilateral eye EOMI, bilateral eye PERRL ENT: hearing grossly normal, normal pharynx Neck: full range of motion, supple, no meningismus, tracheotomy Respiratory: chest non-tender, normal breath sounds, accessory muscle use, rhonchi Cardiovascular #1: regular rate, rhythm, no murmur, tachycardia Gastrointestinal: normal bowel sounds, non tender, no mass, no organomegaly, no bruit, non-distended, other - G-tube Musculoskeletal: other - Contracted. Large Sacral decub. decub ulcers on hips. Decub ulcer on bilateral heel. Neurologic: alert Psychiatric: mood/affect normal Skin: warm/dry Lymphatic: normal inspection Procedures Critical Care Time Critical Care Time Critical care is mandated in this patient who presented with severe sepsis. Patient require my urgent intervention to attenuate the risks of metabolic collapse which may lead to cardiovascular collapse and . Critical care time is 35 minutes excluding any reportable procedure. Critical care time included evaluation, multiple reevaluation, looking at old charts, interpreting laboratory and diagnostic data, discussing case with patient and family and consultants, and charting. Medical Decision Making Diagnostic Impression: Primary Impression: Sepsis Qualified Codes: A41.9 - Sepsis, unspecified organism Additional Impressions: Pneumonia Qualified Codes: J18.1 - Lobar pneumonia, unspecified organism UTI (urinary tract infection) Qualified Codes: N30.00 - Acute cystitis without hematuria Hyperkalemia Dehydration Proteinuria Qualified Codes: R80.9 - Proteinuria, unspecified Anemia Qualified Codes: D64.9 - Anemia, unspecified Coumadin toxicity Qualified Codes: T45.511A - Poisoning by anticoagulants, accidental ( unintentional), initial encounter Acute on chronic respiratory failure Qualified Codes: J96.21 - Acute and chronic respiratory failure with hypoxia ER Course Patient with severe sepsis. Source of infection could be his lungs, decubital ulcers, UTI to name a few. He also has a PICC line. Unfortunately, sputum and wound cultures grew out multiple drug-resistant bugs. Vancomycin added for possible PICC line infection. Prognosis poor in this patient. We'll admit Lab Results Impression Labs with leukocytosis, hyperkalemia, and elevated INR. EKG Diagnostic Results EKG Time: 22:25 Rate: tachycardiac Rhythm: NSR ST Segments: no acute changes Rhythm Strip Diag. Results Rhythm Strip Time: 22:25 EP Interpretation: yes Rate: 110 Rhythm: NSR, no PVC's, no ectopy Chest X-Ray Diagnostic Results Chest X-Ray Diagnostic Results : Chest X-Ray Ordered: Yes # of Views/Limited/Complete: 1 View Indication: Shortness of Breath EP Interpretation: Yes Interpretation: no effusion, no pneumothorax, other - Right lobe interstitial infiltrates Impression: Other - Pneumonia Interpreting ER Provider: Electronically signed by Wild Last MD Status: improved Disposition: ADMITTED INPATIENT Condition: Serious WILD LAST M.D. Jul 08, 2017 22:25
[2017-07-08 22:30] VITALS: BP 102/67
[2017-07-08] MEDS ORDERED: Cefepime HCl 1 GM in D5W 55 ML IVPB ONE (22:30)
[2017-07-08] MEDS ORDERED: Vancomycin 1 GM in NS 275 ML IVPB ONE (22:30)
[2017-07-08] MEDS ORDERED: Cefepime 1gm vial ONE (22:42)
[2017-07-08 22:50] LABS: APPEARANCE,URINE CLEAR; KETONES,URINE NEGATIVE (NEGATIVE); LEUKOCYTE ESTERASE ,URINE 2+ (NEGATIVE); NITRITE,URINE NEGATIVE (NEGATIVE); PH,URINE 7 (4.5-8.0); PROTEIN,URINE 2+ (NEGATIVE); UROBILINOGEN,URINE NORMAL MG/DL (0.0-1.0)
[2017-07-08 22:59] LABS: ALANINE AMINOTRANSFERASE 45 U/L (3-41); ALBUMIN/GLOBULIN RATIO 0.6 (1.0-2.7); ANION GAP 9 (5-15); ASPARTATE AMINO TRANSFERASE 37 U/L (5-40); CALCIUM 9.5 mg/dL (8.6-10.2); CARBON DIOXIDE 29 mEQ/L (20-30); CHLORIDE 97 mEQ/L (98-107); CREATININE 0.6 mg/dL (0.7-1.2); GLOMERULAR FILTRATION RATE > 60 mL/min (>60); HEMOLYSIS 2; SODIUM 135 mEQ/L (135-145); TOTAL PROTEIN 7.4 g/dL (6.6-8.7); TROPONIN I < 0.30 ng/mL (<=0.30)
[2017-07-08 23:01] LABS: POTASSIUM 6.2 mEQ/L (3.4-4.9)
[2017-07-08 23:09] LABS: CKMB 2.6 ng/mL (< 6.7); MEAN CORPUSCULAR HEMOGLOBIN 30.6 PG (27.0-31.0); MEAN CORPUSCULAR HGB CONC 34.1 G/DL (32.0-36.0); MEAN CORPUSCULAR VOLUME 90 FL (80-99); MEAN PLATELET VOLUME 5.5 FL (6.5-10.1); PLATELET COUNT 511 K/UL (150-450); RED BLOOD COUNT 3.24 M/UL (4.70-6.10); RED CELL DISTRIBUTION WIDTH 17.4 % (11.6-14.8); WHITE BLOOD COUNT 18.8 K/UL (4.8-10.8)
[2017-07-08] MEDS ORDERED: Sodium Polystyrene Sulfonate 15gm Powder GT ONE (23:15)
[2017-07-08 23:18] LABS: PROTHROMBIN TIME 94.2 SEC (9.30-11.50)
[2017-07-08 23:18] LABS: BACTERIA,URINE MANY /HPF; CALCIUM OXALATE CRYSTALS,UR FEW /LPF; SQUAMOUS EPITHELIAL CELL,UR MODERATE /LPF (NONE/OCC)
[2017-07-08 23:21] LABS: INR 8.8 (0.9-1.1)
[2017-07-08 23:36] LABS: BAND NEUTROPHILS % (MANUAL) 6 % (0-8); BASOPHILS % (MANUAL) 0 % (0-2); EOSINOPHILS % (MANUAL) 1 % (0-3); LYMPHOCYTES % (MANUAL) 10 % (20-45); NEUTROPHILS % (MANUAL) 79 % (45-75); PLATELET ESTIMATE ADEQUATE; PLATELET MORPHOLOGY NORMAL; TOTAL CELLS COUNTED 100
[2017-07-09] VITALS (9 sets, daily range): BP systolic 89–120; BP diastolic 51–75
[2017-07-09] MEDS ORDERED: Vancomycin 1gm inj IVPB ONE (00:49)
[2017-07-09] MEDS ORDERED: DuoNeb 0.5-3(2.5)mg/3ml neb HHN PRN (06:45)
[2017-07-09] MEDS ORDERED: Miralax 17gm pkt ORAL PRN (06:45)
[2017-07-09] MEDS ORDERED: LORazepam Inj 2mg/ml 1ml IV PRN (06:45)
[2017-07-09] MEDS ORDERED: Heparin 5000 units/ml inj SUBQ SCH (09:00)
[2017-07-09] MEDS: Lisinopril 20mg tab GT SCH (09:00)
[2017-07-09 09:45] LABS: ALANINE AMINOTRANSFERASE 31 U/L (3-41); ALBUMIN/GLOBULIN RATIO 0.6 (1.0-2.7); ANION GAP 8 (5-15); ASPARTATE AMINO TRANSFERASE 27 U/L (5-40); CALCIUM 8.3 mg/dL (8.6-10.2); CARBON DIOXIDE 25 mEQ/L (20-30); CHLORIDE 103 mEQ/L (98-107); CREATININE 0.4 mg/dL (0.7-1.2); GLOMERULAR FILTRATION RATE > 60 mL/min (>60); HEMOLYSIS 24; POTASSIUM 4.3 mEQ/L (3.4-4.9); SODIUM 136 mEQ/L (135-145); TOTAL PROTEIN 5.6 g/dL (6.6-8.7)
--- NOTE | 2017-07-09 09:48 | Diagnostic Imaging Report ---
Indications: Shortness of breath Technique: Portable AP chest Findings: Comparison: 06/25/2017 Cardiac silhouette remains normal in size. Pulmonary vasculature remains within normal limits. Suggestion of focal consolidation in left retrocardiac region. Right lung, bilateral pleural surfaces clear. Tracheostomy, pacemaker, tubular structures overlying the upper abdomen all again noted. PICC has been placed via right upper extremity, tip in superior vena cava. IMPRESSION: Suggestion of atelectasis versus focal pneumonia left lower lobe No other evidence of acute cardiopulmonary disease Interval PICC placement, well-positioned
[2017-07-09] MEDS: Amiodarone 200mg tab GT SCH (10:11)
[2017-07-09] MEDS: levETIRAcetam 500mg/5ml Liquid GT SCH ×2 (10:12→21:00)
[2017-07-09] MEDS: Zosyn 4.5gm q8h **Extended infusion IVPB SCH ×6 (10:14→21:59)
[2017-07-09] MEDS: Zinc Sulfate 220mg cap ORAL SCH (10:14)
[2017-07-09] MEDS ORDERED: ZOFRAN4 M3 GT (10:49)
[2017-07-09] MEDS ORDERED: POTASSIUM99 M2 GT (10:52)
--- NOTE | 2017-07-09 11:21 | History and Physical ---
History of Present Illness General Date patient seen: Jul 09, 2017 Reason for Hospitalization: Fever Present Illness HPI 57-year-old male who has a history of the dependent respiratory failure, feeding tube and is bed bound. Patient presents with chief complaint of fever. History is through EMS, [facility] note and medical records. Patient himself unable to give a history. Pt was diagnosed to have sepsis and admitted to [facility] for sepsis. Allergies: Coded Allergies: No Known Allergies (Unverified , 03/07/17) Medication History Scheduled Amiodarone Hcl (Amiodarone Hcl), 200 MG GT DAILY, (Reported) Aspirin* (Aspir 81*), 81 MG GT DAILY, (Reported) Carvedilol (Coreg), 3.125 MG GT Q12HR Folic Acid* (Folic Acid*), 1 MG ORAL DAILY, (Reported) Furosemide* (Lasix*), 60 MG GT DAILY, (Reported) Heparin Sod (Porcine) (Heparin Sodium*), 5,000 UNITS SUBQ EVERY 12 HOURS, ( Reported) Lactulose (Lactulose*), 30 ML GT BID, (Reported) Levetiracetam (Keppra), 500 MG GT Q12HR Lisinopril* (Lisinopril*), 10 MG GT DAILY, (Reported) Omeprazole (Omeprazole), 40 MG GT DAILY, (Reported) Potassium (Potassium), 40 MG GT BID, (Reported) Warfarin Sod (Coumadin*), 8 MG GT DAILY, (Reported) Zinc Sulfate (Zinc Sulfate*), 220 MG ORAL DAILY, (Reported) Scheduled PRN Clonidine Hcl (Clonidine Hcl), 0.1 MG PO Q6HR PRN for For High Blood Pressure, ( Reported) Ondansetron* (Zofran*), 4 MG GT Q6H PRN for Nausea & Vomiting, (Reported) Polyethylene Glycol 3350* (Miralax*), 17 GM GT DAILY PRN for Constipation, ( Reported) Discontinued Medications Ascorbic Acid* (Vitamin C*), 500 MG GT DAILY, (Reported) Discontinued Reason: Therapy completed Hydrocodone Bit/Acetaminophen 5-325* ([place] 5-325*), 1 TAB ORAL Q4H PRN for For Pain, (Reported) Discontinued Reason: Therapy completed Patient History Healthcare decision maker Resuscitation status Advanced Directive on File Past Medical/Surgical History Past Medical/Surgical History: (1) EF of 30 (2) Feeding by G-tube (3) Chronic respiratory acidosis (4) Atrial fibrillation Review of Systems All Other Systems: negative except mentioned in HPI Physical Exam General Appearance: WD/WN, no apparent distress Lines, tubes and drains: peripheral HEENT: normocephalic, atraumatic Neck: non-tender, normal alignment Respiratory/Chest: chest wall non-tender, lungs clear Cardiovascular/Chest: normal peripheral pulses, normal rate, regular rhythm, no JVD Last 24 Hour Vital Signs Date Time Temp Pulse Resp B/P (MAP) Pulse Ox O2 Delivery O2 Flow Rate FiO2 07/09/17 09:19 121 20 40 07/09/17 08:43 120 21 126/79 100 Trach Collar 40 07/09/17 08:00 123 07/09/17 07:31 100.0 07/09/17 07:30 116 18 40 07/09/17 06:56 100.0 120 25 120/75 100 Room Air 40 07/09/17 04:39 113 25 40 07/09/17 04:30 100.0 108 24 89/56 100 Room Air 40 07/09/17 02:29 113 27 40 07/09/17 02:00 99.0 100 24 99/54 100 Room Air 40 07/09/17 01:24 104 29 40 07/09/17 00:00 102.6 120 30 102/67 100 Room Air 40 07/08/17 23:25 106 30 40 07/08/17 22:55 40 07/08/17 22:30 102.6 120 20 102/67 100 Mechanical Ventilator 40 07/08/17 22:28 124 35 Mechanical Ventilator 40 07/08/17 22:25 124 35 40 07/08/17 22:25 102.2 130 20 102/67 97 Mechanical Ventilator Intake and Output 07/09/17 07/10/17 19:00 07:00 Intake Total 1000 ml Balance 1000 ml Intake IV Total 1000 ml Laboratory Tests Test 07/08/17 22:15 07/08/17 22:20 07/09/17 08:30 White Blood Count 18.8 K/UL (4.8-10.8) H Red Blood Count 3.24 M/UL (4.70-6.10) L Hemoglobin 9.9 G/DL (14.2-18.0) L Hematocrit 29.2 % (42.0-52.0) L Mean Corpuscular Volume 90 FL (80-99) Mean Corpuscular Hemoglobin 30.6 PG (27.0-31.0) Mean Corpuscular Hemoglobin Concent 34.1 G/DL (32.0-36.0) Red Cell Distribution Width 17.4 % (11.6-14.8) H Platelet Count 511 K/UL (150-450) H Mean Platelet Volume 5.5 FL (6.5-10.1) L Neutrophils (%) (Auto) % (45.0-75.0) Lymphocytes (%) (Auto) % (20.0-45.0) Monocytes (%) (Auto) % (1.0-10.0) Eosinophils (%) (Auto) % (0.0-3.0) Basophils (%) (Auto) % (0.0-2.0) Differential Total Cells Counted 100 Neutrophils % (Manual) 79 % (45-75) H Lymphocytes % (Manual) 10 % (20-45) L Monocytes % (Manual) 4 % (1-10) Eosinophils % (Manual) 1 % (0-3) Basophils % (Manual) 0 % (0-2) Band Neutrophils 6 % (0-8) Platelet Estimate Adequate Platelet Morphology Normal Red Blood Cell Morphology Normal Prothrombin Time 94.2 SEC (9.30-11.50) H Prothromb Time International Ratio 8.8 (0.9-1.1) *H Activated Partial Thromboplast Time 78 SEC (23-33) H Sodium Level 135 mEQ/L (135-145) 136 mEQ/L (135-145) Potassium Level 6.2 mEQ/L (3.4-4.9) *H 4.3 mEQ/L (3.4-4.9) Chloride Level 97 mEQ/L (98-107) L 103 mEQ/L (98-107) Carbon Dioxide Level 29 mEQ/L (20-30) 25 mEQ/L (20-30) Anion Gap 9 (5-15) 8 (5-15) Blood Urea Nitrogen 43 mg/dL (7-23) H 28 mg/dL (7-23) H Creatinine 0.6 mg/dL (0.7-1.2) L 0.4 mg/dL (0.7-1.2) L Estimat Glomerular Filtration Rate > 60 mL/min (>60) > 60 mL/min (>60) Glucose Level 112 mg/dL (74-106) H 90 mg/dL (74-106) Lactic Acid Level 1.40 mmol/L (0.66-2.22) Calcium Level 9.5 mg/dL (8.6-10.2) 8.3 mg/dL (8.6-10.2) L Total Bilirubin < 0.2 mg/dL (0.0-1.2) < 0.2 mg/dL (0.0-1.2) Aspartate Amino Transf (AST/SGOT) 37 U/L (5-40) 27 U/L (5-40) Alanine Aminotransferase (ALT/SGPT) 45 U/L (3-41) H 31 U/L (3-41) Alkaline Phosphatase 218 U/L (40-129) H 172 U/L (40-129) H Total Creatine Kinase 27 U/L (38-174) L Creatine Kinase MB 2.6 ng/mL (< 6.7) Creatine Kinase MB Relative Index 9.6 Troponin I < 0.30 ng/mL (<=0.30) Total Protein 7.4 g/dL (6.6-8.7) 5.6 g/dL (6.6-8.7) L Albumin 2.9 g/dL (3.5-5.2) L 2.3 g/dL (3.5-5.2) L Globulin 4.5 g/dL 3.3 g/dL Albumin/Globulin Ratio 0.6 (1.0-2.7) L 0.6 (1.0-2.7) L Urine Color Pale yellow Urine Appearance Clear Urine pH 7 (4.5-8.0) Urine Specific [place] 1.005 (1.005-1.035) Urine Protein 2+ (NEGATIVE) H Urine Glucose (UA) Negative (NEGATIVE) Urine Ketones Negative (NEGATIVE) Urine Occult Blood 3+ (NEGATIVE) H Urine Nitrite Negative (NEGATIVE) Urine Bilirubin Negative (NEGATIVE) Urine Urobilinogen Normal MG/DL (0.0-1.0) Urine Leukocyte Esterase 2+ (NEGATIVE) H Urine RBC 5-10 /HPF (0 - 0) H Urine WBC 2-4 /HPF (0 - 0) Urine Squamous Epithelial Cells Moderate /LPF (NONE/OCC) H Urine Calcium Oxalate Crystals Few /LPF (NONE) Urine Bacteria Many /HPF (NONE) H Height (Feet): 5 Height (Inches): 8.00 Weight (Pounds): 130 Medications Current Medications Medications (Trade) Dose Ordered Sig/T[place]ka Route PRN Reason Start Time Stop Time Status Last Admin Dose Admin Acetaminophen (Tylenol) 650 mg Q4H PRN ORAL T>100.5 07/09/17 06:45 08/08/17 06:44 Albuterol/ Ipratropium (DuoNeb 0.5-3(2.5)mg/3ml) 3 ml Q4H PRN HHN Shortness of Breath 07/09/17 06:45 07/14/17 06:44 Amiodarone HCl (Cordarone) 200 mg DAILY GT 07/09/17 09:00 08/08/17 08:59 07/09/17 10:11 Carvedilol (Coreg) 3.125 mg Q12HR GT 07/09/17 09:00 08/08/17 08:59 Dextrose (Dextrose 50%) STAT PRN IV Hypoglycemia 07/09/17 06:45 08/08/17 06:44 Levetiracetam (Keppra) 500 mg Q12HR GT 07/09/17 09:00 08/08/17 08:59 07/09/17 10:12 Lisinopril (Prinivil) 10 mg DAILY GT 07/09/17 09:00 08/08/17 08:59 Lorazepam (Ativan 2mg/ml 1ml) 2 mg Q2H PRN IV For Anxiety 07/09/17 06:45 07/16/17 06:44 Morphine Sulfate (Morphine Sulfate) 4 mg Q4H PRN IVP Severe Pain (Pain Scale 7-10) 07/09/17 06:45 07/16/17 06:44 Ondansetron HCl (Zofran) 4 mg Q6H PRN IVP Nausea & Vomiting 07/09/17 06:45 08/08/17 06:44 Piperacillin Sod/ Tazobactam Sod 4.5 gm/Dextrose 110 ml @ 27.5 mls/hr EVERY 8 HOURS IVPB 07/09/17 08:00 07/16/17 07:59 07/09/17 10:14 Polyethylene Glycol (Miralax) 17 gm DAILYPRN PRN ORAL Constipation 07/09/17 06:45 08/08/17 06:44 Vancomycin HCl (Vanco rx to dose) 1 ea DAILY PRN MISC . 07/09/17 07:00 08/08/17 06:59 Vancomycin HCl 500 mg/Dextrose 110 ml @ 110 mls/hr Q12HR@0000,1200 IVPB 07/09/17 12:00 07/14/17 11:59 Zinc Sulfate (Zinc Sulfate) 220 mg DAILY ORAL 07/09/17 09:00 08/08/17 08:59 07/09/17 10:14 Assessment/Plan Problem List: (1) Sepsis ICD Codes: A41.9 - Sepsis, unspecified organism SNOMED: 19139937 Qualifiers: Qualified Codes: A41.9 - Sepsis, unspecified organism (2) Atrial fibrillation ICD Codes: I48.91 - Unspecified atrial fibrillation SNOMED: 05061036 (3) Feeding by G-tube ICD Codes: Z93.1 - Gastrostomy status SNOMED: 444032135, 854467403 (4) EF of 30 Respiratory: monitor respiratory rate, adjust FIO2, CXR Cardiac: continue to monitor HR/BP Renal: F/U I&O, keep IV fluid, check electrolytes Infectious Disease: check cultures, continue antibiotics Gastrointestinal: continue feedings/current rate Endocrine: monitor blood sugar, check HgA1C, continue sliding scale insulin Hematologic: monitor H/H, transfuse if hgb<8.5 Neurologic: PRN Ativan, keep patient comfortable Prophylaxis: Protonix, Heparin Disposition: keep in ICU Notes Reviewed: cardio, renal Discussed with: nurses, consultants, business case analyst ODETTE SMILEY Jul 09, 2017 11:21
[2017-07-09] MEDS ORDERED: Piperacillin/Tazobactam 3.375 GM in NS 110 ML IVPB SCH (12:00)
[2017-07-09] MEDS: Vancomycin 500mg/D5W 110ml IVPB SCH ×2 (12:56)
--- NOTE | 2017-07-09 13:51 | Wound Care Consultation ---
Wound Assessment Wound Assessment #1: Wound Number: 1 Wound Present on Admission: Yes New Wound: No Status Change of Wound: No Wound Location Body Site Modif: right Wound Location Body Site: heel Wound Type: pressure ulcer Francis Test: Does not Francis Pressure Ulcer Stage: deep tissue injury Wound Thickness: Full Thickness Wound Length: 3.0 Wound Width: 2.0 Wound Depth: utd Percent of Wound Purple/Maroon: 100 Wound Drainage Amount: None Wound Drainage Odor: None/Absent Tissue Surrounding Wound: Erythemic Wound General Appearance: Reddened - maroon. Wound Assessment #2: Wound Number: 2 Wound Present on Admission: Yes New Wound: No Status Change of Wound: No Wound Location Body Site Modif: left Wound Location Body Site: heel Wound Type: scar Francis Test: Does not Francis Wound Thickness: Full Thickness Wound Length: 3.5 Wound Width: 1.5 Percent of Wound [place]/Red: 100 Wound Drainage Amount: None Wound Drainage Odor: None/Absent Tissue Surrounding Wound: Intact Wound General Appearance: Asymptomatic, Open to air, Clean/Dry Wound Assessment #3: Wound Number: 3 Wound Present on Admission: Yes New Wound: No Status Change of Wound: No Wound Location Body Site Modif: right, lateral Wound Location Body Site: malleolus/ankle Wound Type: pressure ulcer Francis Test: Does not Francis Pressure Ulcer Stage: IV/unstageable - unstageable. Wound Thickness: Full Thickness Wound Length: 1.5 Wound Width: 1.5 Wound Depth: utd Percent of Wound Black/Brown: 100 - dry adhered thick scab Wound Drainage Amount: None Wound Drainage Odor: None/Absent Tissue Surrounding Wound: Erythemic Wound General Appearance: Blackened - dry adhered thick scab Wound Assessment #4: Wound Number: 4 Wound Present on Admission: Yes New Wound: No Status Change of Wound: No Wound Location Body Site Modif: right, mid, lateral Wound Location Body Site: knee Wound Type: pressure ulcer Francis Test: Does not Francis Pressure Ulcer Stage: IV/unstageable Wound Thickness: Full Thickness Wound Length: 2.0 Wound Width: 2.0 Wound Depth: utd Percent of Wound Black/Brown: 100 - thick dry adhered scab. Wound Drainage Amount: None Wound Drainage Odor: None/Absent Tissue Surrounding Wound: Erythemic Wound General Appearance: Reddened, Blackened Wound Assessment #5: Wound Number: 5 Wound Present on Admission: Yes New Wound: No Status Change of Wound: No Wound Location Body Site Modif: left, mid, lateral Wound Location Body Site: knee Wound Type: scar Francis Test: Does not Francis Wound Thickness: Full Thickness Wound Length: 2.0 Wound Width: 2.0 Percent of Wound [place]/Red: 100 Wound Drainage Amount: None Wound Drainage Odor: None/Absent Tissue Surrounding Wound: Intact Wound General Appearance: Asymptomatic, Clean/Dry Wound Assessment #6: Wound Number: 6 Wound Present on Admission: Yes New Wound: No Status Change of Wound: No Wound Location Body Site Modif: right Wound Location Body Site: ear Wound Type: pressure ulcer Francis Test: Does not Francis Pressure Ulcer Stage: IV/unstageable Wound Thickness: Full Thickness Wound Length: 2.0 Wound Width: 1.5 Wound Depth: utd Percent of Wound [place]/Red: 50 Percent of Wound Bed Yellow/Wh: 50 Wound Drainage Description: Serosanguineous Wound Drainage Amount: Moderate Wound Drainage Odor: None/Absent Tissue Surrounding Wound: Macerated Wound General Appearance: Reddened, Draining, Necrotic Wound Assessment #7: Wound Number: 7 Wound Present on Admission: Yes New Wound: No Status Change of Wound: No Wound Location Body Site Modif: left, lateral Wound Location Body Site: malleolus/ankle Wound Type: pressure ulcer Francis Test: Does not Francis Pressure Ulcer Stage: IV/unstageable Wound Thickness: Full Thickness Wound Length: 3.5 Wound Width: 2.5 Wound Depth: utd Percent of Wound Bed Yellow/Wh: 100 Other Colors Identified: noted dry scattered scabs and scar tissue to surrounding site. Wound Drainage Description: Serosanguineous Wound Drainage Amount: Moderate Wound Drainage Odor: None/Absent Tissue Surrounding Wound: Macerated Wound General Appearance: Reddened, Draining, Necrotic Wound Assessment #8: Wound Number: 8 Wound Present on Admission: Yes New Wound: No Status Change of Wound: No Wound Location Body Site Modif: left Wound Location Body Site: ear Wound Type: pressure ulcer Francis Test: Does not Francis Pressure Ulcer Stage: IV/unstageable Wound Thickness: Full Thickness Wound Length: 6.0 Wound Width: 2.0 Wound Depth: utd Percent of Wound [place]/Red: 20 Percent of Wound Bed Yellow/Wh: 80 Wound Drainage Description: Serosanguineous Wound Drainage Amount: Moderate Wound Drainage Odor: None/Absent Tissue Surrounding Wound: Macerated Wound General Appearance: Reddened, Necrotic Wound Assessment #9: Wound Number: 9 Wound Present on Admission: Yes New Wound: No Status Change of Wound: No Wound Location Body Site Modif: left Wound Location Body Site: elbow Wound Type: scar - scattered scar tissue Francis Test: Does not Francis Wound Thickness: Full Thickness Percent of Wound [place]/Red: 100 Wound Drainage Amount: None Wound Drainage Odor: None/Absent Tissue Surrounding Wound: Intact Wound General Appearance: Asymptomatic, Clean/Dry Wound Assessment #10: Wound Number: 10 Wound Present on Admission: Yes New Wound: No Status Change of Wound: No Wound Location Body Site Modif: left Wound Location Body Site: trochanter Wound Type: pressure ulcer Francis Test: Does not Francis Pressure Ulcer Stage: IV/unstageable Wound Thickness: Full Thickness Wound Length: 3.5 Wound Width: 4.0 Wound Depth: utd Percent of Wound [place]/Red: 60 Percent of Wound Bed Yellow/Wh: 10 Percent of Wound Black/Brown: 30 Wound Drainage Description: Serosanguineous Wound Drainage Amount: Moderate Wound Drainage Odor: None/Absent Tissue Surrounding Wound: Macerated Wound General Appearance: Reddened, Blackened, Draining, Necrotic Wound Assessment #11: Wound Number: 11 Wound Present on Admission: Yes New Wound: No Status Change of Wound: No Wound Location Body Site Modif: left Wound Location Body Site: ischial tuberosity Wound Type: pressure ulcer Francis Test: Does not Francis Pressure Ulcer Stage: III Wound Thickness: Full Thickness Wound Length: 10.0 Wound Width: 7.0 Wound Depth: 0.3 Percent of Wound [place]/Red: 90 Percent of Wound Bed Yellow/Wh: 10 Wound Drainage Description: Serosanguineous Wound Drainage Amount: Moderate Wound Drainage Odor: None/Absent Tissue Surrounding Wound: Macerated Wound General Appearance: Reddened, Bleeding - minimal, Draining, Necrotic - 10% scattered Wound Assessment #12: Wound Number: 12 Wound Present on Admission: Yes New Wound: No Status Change of Wound: No Wound Location Body Site Modif: mid Wound Location Body Site: other - sacroccygeal extending to right lower buttocks Wound Type: pressure ulcer Francis Test: Does not Francis Pressure Ulcer Stage: IV/unstageable Wound Thickness: Full Thickness Wound Length: 14.0 Wound Width: 20.0 Wound Depth: 6.0 Percent of Wound [place]/Red: 90 Percent of Wound Bed Yellow/Wh: 10 Wound Drainage Description: Serosanguineous Wound Drainage Amount: Copious Wound Drainage Odor: None/Absent Tissue Surrounding Wound: Macerated - surrounding periwound Wound General Appearance: Reddened, Draining, Bone Palpable, Muscle Visible , Bone Visible Wound Assessment #13: Wound Number: 13 Wound Present on Admission: Yes New Wound: No Status Change of Wound: No Wound Location Body Site Modif: mid, lower Wound Location Body Site: lumbar spine Wound Type: pressure ulcer Rfancis Test: Does not Francis Pressure Ulcer Stage: II Wound Thickness: Partial Thickness Wound Length: 2.0 Wound Width: 2.0 Wound Depth: 0.2 Percent of Wound [place]/Red: 100 Wound Drainage Description: Serosanguineous Wound Drainage Amount: Scant Wound Drainage Odor: None/Absent Tissue Surrounding Wound: Macerated Wound General Appearance: Reddened Wound Assessment #14: Wound Number: 14 Wound Present on Admission: Yes New Wound: No Status Change of Wound: No Wound Location Body Site Modif: right Wound Location Body Site: trochanter Wound Type: pressure ulcer Francis Test: Does not Francis Pressure Ulcer Stage: IV/unstageable Wound Thickness: Full Thickness Wound Length: 5.0 Wound Width: 3.5 Wound Depth: utd Percent of Wound Bed Yellow/Wh: 100 Other Colors Identified: red scar tissue surrounding wound bed mascerated at risk for breakdown. Wound Drainage Description: Serosanguineous Wound Drainage Amount: Moderate Wound Drainage Odor: None/Absent Tissue Surrounding Wound: Macerated Wound General Appearance: Reddened, Draining, Necrotic Wound Assessment #15: Wound Number: 15 Wound Present on Admission: Yes New Wound: No Status Change of Wound: No Wound Location Body Site Modif: right Wound Location Body Site: ischial tuberosity Wound Type: pressure ulcer Francis Test: Does not Francis Pressure Ulcer Stage: III Wound Thickness: Full Thickness Wound Length: 10.0 - scattered Wound Width: 7.0 - scattered Wound Depth: 0.3 Percent of Wound [place]/Red: 100 Wound Drainage Description: Serosanguineous Wound Drainage Amount: Moderate Wound Drainage Odor: None/Absent Tissue Surrounding Wound: Macerated Wound General Appearance: Reddened, Draining Wound Assessment #16: Wound Number: 16 Wound Present on Admission: Yes New Wound: No Status Change of Wound: No Wound Location Body Site Modif: right, medial Wound Location Body Site: malleolus/ankle Wound Type: scar Francis Test: Does not Francis Wound Thickness: Full Thickness Wound Length: 1.0 Wound Width: 1.0 Percent of Wound [place]/Red: 100 Wound Drainage Amount: None Wound Drainage Odor: None/Absent Tissue Surrounding Wound: Intact Wound General Appearance: Asymptomatic, Open to air, Clean/Dry Wound Assessment #17: Wound Number: 17 Wound Present on Admission: Yes New Wound: No Status Change of Wound: No Wound Location Body Site Modif: right, lower, lateral Wound Location Body Site: leg - extending to malleolus Wound Type: scar Francis Test: Does not Francis Wound Thickness: Full Thickness Percent of Wound [place]/Red: 100 - scattered Wound Drainage Amount: None Wound Drainage Odor: None/Absent Tissue Surrounding Wound: Intact Wound General Appearance: Asymptomatic, Open to air, Clean/Dry Wound Assessment #18: Wound Number: 18 Wound Present on Admission: Yes New Wound: No Status Change of Wound: No Wound Location Body Site Modif: right, lower, medial Wound Location Body Site: leg Wound Type: scar Francis Test: Does not Francis Wound Thickness: Full Thickness Wound Length: 1.0 Wound Width: 1.0 Percent of Wound [place]/Red: 100 Wound Drainage Amount: None Wound Drainage Odor: None/Absent Tissue Surrounding Wound: Intact Wound General Appearance: Asymptomatic, Open to air, Clean/Dry Wound Assessment #19: Wound Number: 19 Wound Present on Admission: Yes New Wound: No Status Change of Wound: No Wound Location Body Site Modif: left, mid, lateral Wound Location Body Site: foot Wound Type: scar - with hyperpigmentation Francis Test: Does not Francis Wound Length: 1.0 Wound Width: 1.0 Percent of Wound [place]/Red: 100 - intat vides color hyperpigentation. Wound Drainage Amount: None Wound Drainage Odor: None/Absent Tissue Surrounding Wound: Intact Wound General Appearance: Asymptomatic, Open to air, Clean/Dry Wound Assessment #20: Wound Number: 20 Wound Present on Admission: Yes New Wound: No Status Change of Wound: No Wound Location Body Site Modif: right, mid, lateral Wound Location Body Site: foot Wound Type: scar Francis Test: Does not Francis Wound Length: 1.0 Wound Width: 1.0 Percent of Wound [place]/Red: 100 - vides colored hyperpigmentation. Wound Drainage Amount: None Wound Drainage Odor: None/Absent Tissue Surrounding Wound: Intact Wound General Appearance: Asymptomatic, Open to air, Clean/Dry Wound Assessment #21: Wound Number: 21 Wound Present on Admission: Yes New Wound: No Status Change of Wound: No Wound Location Body Site Modif: left Wound Location Body Site: trochanter Wound Type: scar Francsi Test: Does not Francis Wound Thickness: Full Thickness Wound Length: 6.0 Wound Width: 3.0 Percent of Wound [place]/Red: 100 Wound Drainage Amount: None Wound Drainage Odor: None/Absent Tissue Surrounding Wound: Intact Wound General Appearance: Asymptomatic, Clean/Dry Wound Assessment #22: Wound Number: 22 Wound Present on Admission: Yes New Wound: No Status Change of Wound: No Wound Location Body Site Modif: left, posterior Wound Location Body Site: scapula Wound Type: scar Francis Test: Does not Francis Wound Thickness: Full Thickness Wound Length: 2.5 Wound Width: 2.5 Percent of Wound [place]/Red: 100 Wound Drainage Amount: None Wound Drainage Odor: None/Absent Tissue Surrounding Wound: Intact Wound General Appearance: Asymptomatic, Open to air, Clean/Dry Wound Assessment #23: Wound Number: 23 Wound Present on Admission: Yes New Wound: No Status Change of Wound: No Wound Location Body Site Modif: right, posterior Wound Location Body Site: scapula Wound Type: scar Francis Test: Does not Francis Wound Thickness: Full Thickness Wound Length: 2.0 Wound Width: 3.5 Percent of Wound [place]/Red: 100 Wound Drainage Amount: None Wound Drainage Odor: None/Absent Tissue Surrounding Wound: Intact Wound General Appearance: Asymptomatic, Open to air, Clean/Dry Wound Assessment #24: Wound Number: 24 Wound Present on Admission: Yes New Wound: No Status Change of Wound: No Wound Location Body Site Modif: upper, lower, posterior Wound Location Body Site: back - scatteres mid spine Wound Type: scar - scattered scar tissues Francis Test: Does not Francis Percent of Wound [place]/Red: 100 Wound Drainage Amount: None Wound Drainage Odor: None/Absent Tissue Surrounding Wound: Intact Wound General Appearance: Asymptomatic, Open to air, Clean/Dry Wound Comment 1. Right heel Deep tissue injury. 2.Right lateral malleolus unstageable pressure ulcer. 3.Right lateral mid knee unstageable pressure ulcer. 4.Right ear pressure ulcer stage IV/unstageable. 5.Left ear pressure ulcer stage IV/unstageable. 6.Left Trochanter pressure ulcer stage IV/Unstageable. 7.Left ischial tuberosity pressure ulcer stage 3. 8.Sacrococcygeal extending to right buttocks pressure ulcer stage IV. 9.Mid lumbar spine pressure ulcer stage II. 10.Right trochanter pressure ulcer unstageable. 11.Right ischial tuberosity scattered pressure ulcer stage 3. 12.Left heel full thickness scar tissue. 13.Left lateral knee full thickness scar tissue 14.Left lateral ankle full thickness scar tissue. 15.Left elbow scattered scar tissue. 16. Right medial malleolus full thickness scar tissue. 17. Right lateral lower leg scar extending to malleolus scattered scar tissue 18.Right medial lower leg scar tissue. 19. Left mid lateral foot scar with hyperpigmentation. 20. Right mid lateral foot scar with hyperpigmentation. 21. Left trochanter full thickness scar tissue. 22. posterior back.mid spine scattered scar tissue. 23. Right scapula full thickness scar tissue. 24. Left scapula full thickness scar tissue. Recommendation. - Follow up with MD for possible wound consult with . - Local wound care as ordered. -Apply low air loss p200 mattress for wound and skin management. -Turn and reposition. -Avoid shear and friction. -Keep clean and dry. -Optimize nutrition. -Offload affected pressure sites. -Offload heels and feet. -Apply heel protectors. -Assess and notify MD for any further changes noted to skin. AMALIA NIEVES Jul 09, 2017 13:51
--- NOTE | 2017-07-09 15:17 | Cardiology Report ---
APPROVED REPORT EKG Measurement Heart [id number] Sinus tachycardia Rightward axis Borderline ECG
--- NOTE | 2017-07-09 16:12 | Infectious Diseases Prog Note ---
Infectious Disease Consult Infectious Disease Consult Infectious Disease Consult INFECTIOUS DISEASE CONSULTATION DATE OF CONSULTATION: 09Jul2017 CONSULTING PHYSICIAN: Colby Friend M.D., [facility], [facility] Covering for Dr. Naqvi REFERRING PHYSICIAN: Dr. Shani Moses REASON FOR CONSULTATION: Fever at SNF, h/o complicated MDRO HISTORY OF PRESENT ILLNESS: 57-year-old male who has a history of VDR, feeding tube, recurrent multi-drug resistant infection, and is bed bound. He has multiple admission for sepsis, including on 06/12/2017, and he 's been off antiobiotics since completing 3 days of IV vancomycin and zosyn for a UTI on [id number]. Patient presents with chief complaint of fever of 12 hrs duration, c/b tachycardia and diaphoresis. History is through EMS, correction note and medical records. Patient himself unable to give a history. Given a dose of IV vancomycin, cefepime, and levofloxacin last night around 22: 00, and now continued on IV vancomycin and zosyn with resolution of fevers, and he is not on pressors. Chest X-ray shows LLL infiltrate consistent with pneumonia. he has some bleeding from LUE picc that was placed after 06/25/17 but otherwise site looked healthy. PAST MEDICAL HISTORY: 1. Chronic ventilator-dependent respiratory failure. 2. Ischemic cardiomyopathy with an ejection fraction of 30% to 35%, status post AICD placement. 3. Hypertension. 4. Paroxysmal atrial fibrillation. 5. Hepatitis C antibody positive. 6. Multiple decubitus. PAST SURGICAL HISTORY: 1. AICD placement. 2. Tracheostomy. 3. PEG tube placement. ALLERGIES: No known drug allergies. ANTIBIOTICS: Home and hospitalized medications reviewed. IV vancomycin and IV zosyn D#1 s/p one dose of levofloxacin and cefepime 07/08/17 PM SOCIAL HISTORY: correction resident. trach/peg. FAMILY HISTORY: Noncontributory REVIEW OF SYSTEMS: 11 point ROS negative except for that mentioned in HPI above. PHYSICAL EXAM: VITAL SIGNS: Tmax 102.6F Tc 97.8F bp 110/60 hr 119 rr 23 mech vent , FIO2 40% GEN: awake, alert, non toxic appearing, diaphoretic, cachectic. HEENT: Mild pale conjunctiva. oral mucosa dry, pharynx w/o exudate or effusion. No icterus. Head normocephalic, neck supple. trach c/d/i w/o significant aspirate. NECK: No cervical LAD CHEST: Clear to auscultation bilaterally. HEART: tachycardic, S1 and S2, no murmurs, no rubs. ABDOMEN: soft, non tender, non distended, normoactive bowel sounds. peg tube. some scant bleeding adjacent to peg tube where two red rubber catheters are sutured to skin EXTREMITIES: No cyanosis, + clubbing, no edema. RUE picc w/o fluctuance, erythema, but + bleeding at the exit site. NEUROLOGIC: Awake, alert, at baseline : tierney in place draining clear yellow urine LYMPH: shotty b/l inguinal LAD RECTAL: deferred. wound care notes and photos reviewed. LABORATORY AND DIAGNOSTIC DATA: WBC 18.8, hgb 9.9, plt 511, N 79%, 6% bands bmp 136/4.3/103/25/28/0.4/90 ca 8.3, alk phos 172, CK 27, trop <0.3 prot 5.6, alb 2.3 u/a 1.005/2+ prot/2+ LE/2-4 WBC RADIOLOGY: Patient : RILEY BELLO Referring Physician: ARIELLE WELLS M.D. ID Number: [id number] Service Date: 07/08/17 : 1960 Report Date: 07/08/17 Gender: M Accession No.: [id number] Location: 2W Procedure: XRAY Chest 1v Indications: Shortness of breath Technique: Portable AP chest Findings: Comparison: 06/25/2017 Cardiac silhouette remains normal in size. Pulmonary vasculature remains within normal limits. Suggestion of focal consolidation in left retrocardiac region. Right lung, bilateral pleural surfaces clear. Tracheostomy, pacemaker, tubular structures overlying the upper abdomen all again noted. PICC has been placed via right upper extremity, tip in superior vena cava. IMPRESSION: Suggestion of atelectasis versus focal pneumonia left lower lobe No other evidence of acute cardiopulmonary disease Interval PICC placement, well-positioned ASSESSMENT AND PLAN ASSESSMENT: 1) Septis--not on pressors, hypotension resolved s/p fluid bolus. Likely secondary to hypovolemia secondary to dehydration, LLL pneumonia, and possible sepsis from chronic sacral wound. appreciate wound care eval; his sacrococcygeal ulcer does have some of the foul smell it did in early May2017 s /p Dakin's. prior surgical eval. 2) LLL pneumonia 3) Dehydration--based on exam, serum Na, BUn/Cr ratio 4) Stage IV sacral decubitus ulcers --recent wcx: MDR ACB, C albicans, and KPC (sensitive only to colistin) during early May2017, his sacral decubitus ulcer probes to bone. has been evaluated by surgery and not considered surgical candidate, and he's received close care from the wound team, previously receiving Dakin's and chemical debridement of foul smelling fibrinous exudate centrally 5) Chronic sacrococcygeal osteomyelitis. see #4 above. 6) Leukocytosis with bandemia 7) Fever, improved 8) Elevated alk phos, stable s/p u/s 06/13 with some GB wall thickening, no definite stone, acute acalculous cholecystitis not entirely excluded s/p U/s last admission negative for acute process secondary to chronic sacral bone osteolysis 9) HCV Ab+, no transaminitis currently. HIV negative on last admission 10) s/p diarrhea. no active diarrhea. recent C diff on last admission negative 11) h/o recurrent HCAP/VAP--MDR-ACB, KPC, Providencia, XDR Pseudomonas. No bacteremia documented in 2017. s/p treatment s/p (06/17 s/p vancomycin, cefepime D#7) (06/15 s/p amikacin D#4) (06/14 s/p flagyl D#2) (06/12 s/p ertapenem x1) (05/27 s/p tigecycline and colistin D#14/14, meropenem D#10/) (05/15 s/p IV vancomycin and zosyn D#5) s/p D#7 meroepenem and inhaled colistin (03/13 s/p vancomycin and zosyn D#5) 11) elevated ESR (117), low elevation of CRP--at last admission 12) reactive thrombocytosis 13) h/o UTI (06/25/17 s/p IV vanc/zosyn D#3) 14. bleeding at RUE picc. Chronic anoxic encephalopathy--mentation at baseline -h/o cardiac arrest Borderline hypernatremia Cachexia with elevated CEA, normal PSA Acute on chronic anemia Sinus tachycardia respiratory alkalosis Chronic VDRF, s/p trach and PEG Cardiomyopathy s/p defibrillatory placement Paroxysmal Afib Retirement resident MDRO colonized NKDA hypokalemia AM cortisol negative for adrenal insufficiency Full code? PLAN: --Continue empiric IV zosyn and vancomycin D#1 for LLL HCAP. --f/u sputum cx --f/u blood cx --f/u urine cx --f/u ESR and CRP --Monitor CXR --monitor CBC --monitor temp curve --If leukocytosis and fevers persist through tomorrow, will consider adding on empiric IV colistin given prior h/o MDR ACB and KPC (sensitive only to colistin ) previously isolated from this chronic sacral wound. --Ventilatory support, tracheostomy care, aspiration precautions. --s/p Wound care consult --CT pelvis non contrast to assess for interval bony changes. he has AICD so will avoid MRI. --recommend repeat surgical evaluation for his chronic sacral wounds to assess for need for soft tissue coverage. Thank you for this consultation. Will continue to follow. Covering for Dr. Naqvi, please call me with questions, Colby Friend M.D. Jul 09, 2017 16:12
[2017-07-09] MEDS ORDERED: Tubing IV Secondary IV ONE (16:24)
[2017-07-09] MEDS ORDERED: NS 275ml ONE (16:24)
[2017-07-10] MEDS: Vancomycin 500mg/D5W 110ml IVPB SCH ×4 (00:24→12:54)
[2017-07-10 04:00] VITALS: BP 104/54
[2017-07-10 05:33] LABS: MEAN CORPUSCULAR HEMOGLOBIN 29.3 PG (27.0-31.0); MEAN CORPUSCULAR HGB CONC 32.1 G/DL (32.0-36.0); MEAN CORPUSCULAR VOLUME 91 FL (80-99); MEAN PLATELET VOLUME 5.4 FL (6.5-10.1); PLATELET COUNT 447 K/UL (150-450); RED BLOOD COUNT 2.41 M/UL (4.70-6.10); RED CELL DISTRIBUTION WIDTH 16.4 % (11.6-14.8); WHITE BLOOD COUNT 15.5 K/UL (4.8-10.8)
[2017-07-10] MEDS: Zosyn 4.5gm q8h **Extended infusion IVPB SCH ×6 (05:40→21:48)
[2017-07-10 06:02] LABS: ALANINE AMINOTRANSFERASE 24 U/L (3-41); ALBUMIN/GLOBULIN RATIO 0.5 (1.0-2.7); ANION GAP 12 (5-15); ASPARTATE AMINO TRANSFERASE 23 U/L (5-40); CALCIUM 8.8 mg/dL (8.6-10.2); CARBON DIOXIDE 27 mEQ/L (20-30); CHLORIDE 104 mEQ/L (98-107); CREATININE 0.4 mg/dL (0.7-1.2); CRP QUANT 14.3 mg/dL (< 0.5); GLOMERULAR FILTRATION RATE > 60 mL/min (>60); HEMOLYSIS 4; MAGNESIUM 1.5 mg/dL (1.7-2.5); SODIUM 143 mEQ/L (135-145); TOTAL PROTEIN 6.1 g/dL (6.6-8.7)
[2017-07-10 08:00] VITALS: BP 129/69
[2017-07-10 08:43] LABS: ANION GAP 14 (5-15); CALCIUM 8.9 mg/dL (8.6-10.2); CARBON DIOXIDE 25 mEQ/L (20-30); CHLORIDE 103 mEQ/L (98-107); CREATININE 0.4 mg/dL (0.7-1.2); GLOMERULAR FILTRATION RATE > 60 mL/min (>60); HEMOLYSIS 4; PHOSPHORUS 3.6 mg/dL (2.5-4.8); SODIUM 142 mEQ/L (135-145)
[2017-07-10 08:50] LABS: POTASSIUM 2.1 mEQ/L (3.4-4.9)
[2017-07-10] MEDS: Amiodarone 200mg tab GT SCH (10:11)
[2017-07-10] MEDS: levETIRAcetam 500mg/5ml Liquid GT SCH ×2 (10:11→21:48)
[2017-07-10] MEDS: Lisinopril 20mg tab GT SCH (10:11)
[2017-07-10] MEDS: Morphine Sulfate 4mg/ml Inj IVP PRN ×2 (10:11→21:49)
[2017-07-10] MEDS: Zinc Sulfate 220mg cap ORAL SCH (10:11)
[2017-07-10 12:00] VITALS: BP 118/68
--- NOTE | 2017-07-10 12:32 | Pulmonology Progress Note ---
Assessment/Plan Problems: (1) Sepsis (2) Atrial fibrillation (3) Feeding by G-tube (4) EF of 30 Respiratory: monitor respiratory rate, adjust FIO2 Renal: F/U I&O, keep IV fluid Infectious Disease: check cultures, continue antibiotics Gastrointestinal: continue feedings/current rate, hold feedings Endocrine: monitor blood sugar, check HgA1C, continue sliding scale insulin Hematologic: monitor H/H, transfuse if hgb<8.5 Neurologic: PRN Ativan, PRN Morphine, keep patient comfortable Affect: PRN ativan Prophylaxis: Protonix Notes Reviewed: cardio, renal Discussed with: nurses, consultants, case technician Subjective ROS Limited/Unobtainable: No Constitutional: Reports: no symptoms HEENT: Repors: no symptoms Respiratory: Reports: no symptoms Cardiovascular: Reports: no symptoms Gastrointestinal/Abdominal: Reports: no symptoms Allergies: Coded Allergies: No Known Allergies (Unverified , 03/07/17) Objective Last 24 Hour Vital Signs Date Time Temp Pulse Resp B/P (MAP) Pulse Ox O2 Delivery O2 Flow Rate FiO2 07/10/17 11:40 95 18 40 07/10/17 10:12 104 129/69 07/10/17 10:11 129/69 07/10/17 09:13 103 26 40 07/10/17 08:00 40 07/10/17 08:00 106 07/10/17 08:00 98.1 104 22 129/69 100 Mechanical Ventilator 40 07/10/17 07:04 105 21 40 07/10/17 05:25 121 23 40 07/10/17 04:00 40 07/10/17 04:00 98.4 110 21 104/54 99 Mechanical Ventilator 40 07/10/17 04:00 103 07/10/17 03:16 98 19 40 07/10/17 01:20 112 24 40 07/10/17 00:00 107 07/10/17 00:00 40 07/09/17 23:56 98.2 108 25 108/53 99 07/09/17 23:16 111 23 40 07/09/17 21:05 104 25 40 07/09/17 21:00 104 95/51 07/09/17 20:26 98.9 106 20 95/51 100 Mechanical Ventilator 40 07/09/17 20:00 102 07/09/17 20:00 40 07/09/17 19:35 107 22 40 07/09/17 17:18 109 22 40 07/09/17 16:00 120 07/09/17 16:00 99.2 120 25 94/53 100 Mechanical Ventilator 40 07/09/17 16:00 40 07/09/17 15:28 119 23 40 07/09/17 13:15 120 20 40 General Appearance: WD/WN HEENT: normocephalic, atraumatic Respiratory/Chest: chest wall non-tender, lungs clear, normal breath sounds Cardiovascular: normal peripheral pulses, normal rate, regular rhythm Abdomen: normal bowel sounds, soft, non tender, non distended Extremities: no cyanosis, no clubbing Skin: no ulcers 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: 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, no motor/sensory deficits Lymphatic: no groin adenopathy Microbiology Date/Time Source Procedure Growth Status 07/08/17 22:30 Blood Blood Culture - Preliminary NO GROWTH AFTER 24 HOURS Resulted 07/08/17 22:15 Blood Blood Culture - Preliminary Resulted 07/08/17 22:20 Indwelling Cath Urine Culture - Preliminary Gram Negative Bacillus 1 Gram Negative Bacillus 2 Resulted Laboratory Tests 07/10/17 04:00: White Blood Count 15.5H, Red Blood Count 2.41L, Hemoglobin 7.1L, Hematocrit 22.0L, Mean Corpuscular Volume 91, Mean Corpuscular Hemoglobin 29.3, Mean Corpuscular Hemoglobin Concent 32.1, Red Cell Distribution Width 16.4H, Platelet Count 447, Mean Platelet Volume 5.4L, Neutrophils (%) (Auto) , Lymphocytes (%) (Auto) , Monocytes (%) (Auto) , Eosinophils (%) (Auto) , Basophils (%) (Auto) , Erythrocyte Sedimentation Rate 140H, Sodium Level 143, Potassium Level 2.0#*L, Chloride Level 104, Carbon Dioxide Level 27, Anion Gap 12, Blood Urea Nitrogen 17, Creatinine 0.4L, Estimat Glomerular Filtration Rate > 60, Glucose Level 84, Calcium Level 8.8, Phosphorus Level 3.6, Magnesium Level 1.5L, Total Bilirubin 0.2, Aspartate Amino Transf (AST/SGOT) 23, Alanine Aminotransferase (ALT/SGPT) 24, Alkaline Phosphatase 144H, C-Reactive Protein, Quantitative 14.3H, Total Protein 6.1L, Albumin 2.1L, Globulin 4.0, Albumin/ Globulin Ratio 0.5L Current Medications Medications (Trade) Dose Ordered Sig/Tameka Route PRN Reason Start Time Stop Time Status Last Admin Dose Admin Acetaminophen (Tylenol) 650 mg Q4H PRN ORAL T>100.5 07/09/17 06:45 08/08/17 06:44 Albuterol/ Ipratropium (DuoNeb 0.5-3(2.5)mg/3ml) 3 ml Q4H PRN HHN Shortness of Breath 07/09/17 06:45 07/14/17 06:44 Amiodarone HCl (Cordarone) 200 mg DAILY GT 07/09/17 09:00 08/08/17 08:59 07/10/17 10:11 Carvedilol (Coreg) 3.125 mg Q12HR GT 07/09/17 09:00 08/08/17 08:59 07/10/17 10:12 Dextrose (Dextrose 50%) STAT PRN IV Hypoglycemia 07/09/17 06:45 08/08/17 06:44 Levetiracetam (Keppra) 500 mg Q12HR GT 07/09/17 09:00 08/08/17 08:59 07/10/17 10:11 Lisinopril (Prinivil) 10 mg DAILY GT 07/09/17 09:00 08/08/17 08:59 07/10/17 10:11 Lorazepam (Ativan 2mg/ml 1ml) 2 mg Q2H PRN IV For Anxiety 07/09/17 06:45 07/16/17 06:44 Morphine Sulfate (Morphine Sulfate) 4 mg Q4H PRN IVP Severe Pain (Pain Scale 7-10) 07/09/17 06:45 07/16/17 06:44 07/10/17 10:11 Ondansetron HCl (Zofran) 4 mg Q6H PRN IVP Nausea & Vomiting 07/09/17 06:45 08/08/17 06:44 Piperacillin Sod/ Tazobactam Sod 4.5 gm/Dextrose 110 ml @ 27.5 mls/hr EVERY 8 HOURS IVPB 07/09/17 08:00 07/16/17 07:59 07/10/17 05:40 Polyethylene Glycol (Miralax) 17 gm DAILYPRN PRN ORAL Constipation 07/09/17 06:45 08/08/17 06:44 Potassium Chloride 100 ml @ 50 mls/hr Q2H IVPB 07/10/17 08:30 07/10/17 20:29 07/10/17 10:24 Vancomycin HCl (Vanco rx to dose) 1 ea DAILY PRN MISC . 07/09/17 07:00 08/08/17 06:59 Vancomycin HCl 500 mg/Dextrose 110 ml @ 110 mls/hr Q12HR@0000,1200 IVPB 07/09/17 12:00 07/14/17 11:59 07/10/17 00:24 Zinc Sulfate (Zinc Sulfate) 220 mg DAILY ORAL 07/09/17 09:00 08/08/17 08:59 07/10/17 10:11 ODETTE SMILEY Jul 10, 2017 12:32
--- NOTE | 2017-07-10 12:42 | Diagnostic Imaging Report ---
Indication: Abdominal pain Technique: Continuous helical transaxial imaging of the abdomen and pelvis was obtained from the lung bases to the pubic symphysis. No intravenous contrast was administered. Coronal 2-D reformats were also obtained. Total Dose length Product (DLP): [address] Dose Index Volume (CTDIvol): 11.4 mGy Comparison: none Findings: The lung bases show basilar consolidation and trace effusions. The gallbladder is distended. No obvious stones seen on this exam within the gallbladder. There are multiple small nonobstructive stones within the kidneys bilaterally. There is no hydronephrosis. There is perinephric stranding present nonspecific. There is thickening of the urinary bladder wall. There is air in the bladder lumen. Please correlate for recent Buckley placement or instrumentation. Aorta shows mural calcification and is normal in caliber. Gastrostomy noted in good position. Generalized subcutaneous edema noted. Prominent decubitus ulcer noted posterior to the sacrum. Prominent erosive changes of the lower sacrum and coccyx demonstrated. Moderate gluteal soft tissue ossification demonstrated bilaterally. Impression: Multiple bilateral nonobstructive stones within the kidneys. Perinephric stranding is nonspecific. Basilar consolidation versus atelectasis with trace bilateral pleural effusions. Pacemaker. Distended gallbladder, nonspecific. Thickening of the urinary bladder wall. Cystitis not excluded. Anasarca Air in the bladder lumen. Please correlate clinically for recent Buckley placement. Sacral decubitus ulcer and chronic osteomyelitis erosion of the sacrum/coccyx. Atherosclerotic disease Gastrostomy The CT scanner at [facility] is accredited by the [employer] and the scans are performed using dose optimization techniques as appropriate to a performed exam including Automatic Exposure control.
--- NOTE | 2017-07-10 13:38 | Diagnostic Imaging Report ---
APPROVED REPORT CPT Code: 72692 Present Symptoms Comments: Embolism prevention R/O DVT BILATERAL: Imaging reveals a patent deep venous system bilaterally. There is no evidence of thrombus within the femoral, popliteal or tibial segments. The greater saphenous veins are also within normal limits. Doppler indicates normal spontaneous flow within these segments.
--- NOTE | 2017-07-10 15:40 | Infectious Diseases Prog Note ---
Assessment/Plan Assessment/Plan ASSESSMENT: LLL pneumonia, r/o PICC line associated bacteremia, r/o chronic sacral osteomyelitis source. Has defervesced >24 hrs and WBC down from 18 to 15 on empiric IV vanc and zosyn 4.5gm q8hr extended infusion. 1) Sepsis--not on pressors, hypotension resolved s/p fluid bolus. Likely secondary to hypovolemia secondary to dehydration, LLL pneumonia, and possible sepsis from chronic sacral wound. appreciate wound care eval; his sacrococcygeal ulcer does have some of the foul smell it did in early May2017 s /p Dakin's. prior surgical eval. 2) LLL pneumonia 3) Dehydration--based on exam, serum Na, BUn/Cr ratio 4) Stage IV sacral decubitus ulcers --recent wcx: MDR ACB, C albicans, and KPC (sensitive only to colistin) during early May2017, his sacral decubitus ulcer probes to bone. has been evaluated by surgery and not considered surgical candidate, and he's received close care from the wound team, previously receiving Dakin's and chemical debridement of foul smelling fibrinous exudate centrally 5) Chronic sacrococcygeal osteomyelitis. see #4 above. could not obtain MRI b/c on vent and has AICD CT with contrast--some sacral/coccygeal erosion, but no abscess. no profound progression. 6) Leukocytosis with bandemia, improving 7) Fever, resolved 8) Elevated alk phos, stable s/p u/s 06/13 with some GB wall thickening, no definite stone, acute acalculous cholecystitis not entirely excluded s/p U/s last admission negative for acute process secondary to chronic sacral bone osteolysis CT a/p w/o evidence of acute cholecystitis 9) HCV Ab+, no transaminitis currently. HIV negative on last admission 10) s/p diarrhea. no active diarrhea. recent C diff on last admission negative 11) h/o recurrent HCAP/VAP--MDR-ACB, KPC, Providencia, XDR Pseudomonas. No bacteremia documented in 2017. s/p treatment s/p (06/17 s/p vancomycin, cefepime D#7) (06/15 s/p amikacin D#4) (06/14 s/p flagyl D#2) (06/12 s/p ertapenem x1) (05/27 s/p tigecycline and colistin D#14/, meropenem D#/) (05/15 s/p IV vancomycin and zosyn D#5) s/p D#7 meroepenem and inhaled colistin (03/13 s/p vancomycin and zosyn D#5) 11) elevated ESR (117), low elevation of CRP--at last admission 12) reactive thrombocytosis 13) h/o UTI (06/25/17 s/p IV vanc/zosyn D#3) 14. bleeding at [facility] picc. 15. GNR x2 in urine. u/a was not consistent with acute UTI, so suspect he has bacteriuria only. 16. Elevated inflammatory markers: ESR 140mm/hr, CRP 14.3 mg/dL 17. GPC in clusters from blood cx--one of 4 bottles from admission Chronic anoxic encephalopathy--mentation at baseline -h/o cardiac arrest Borderline hypernatremia hypokalemia Cachexia with elevated CEA, normal PSA Acute on chronic anemia Sinus tachycardia respiratory alkalosis Chronic VDRF, s/p trach and PEG Cardiomyopathy s/p defibrillatory placement Paroxysmal Afib [facility] resident MDRO colonized NKDA hypokalemia AM cortisol negative for adrenal insufficiency Full code? PLAN: --Continue empiric IV zosyn and vancomycin D#2 for LLL HCAP. --f/u sputum cx --f/u blood cx from 07/08 growing one possible MRSA vs MSSA vs CoNS --surveillance blood cx now. one from PICC, one from peripheral stick --f/u urine cx --Monitor CXR --monitor CBC --monitor temp curve --leukocytosis improving and and fevers resolved, so no indication to add on empiric IV colistin despite prior h/o MDR ACB and KPC (sensitive only to colistin) previously isolated from this chronic sacral wound. --Ventilatory support, tracheostomy care, aspiration precautions. --s/p Wound care consult --recommend repeat surgical evaluation for his chronic sacral wounds to assess for need for soft tissue coverage. Will continue to follow. Covering for Dr. Naqvi, please call me with questions, Subjective ROS Limited/Unobtainable: Yes Allergies: Coded Allergies: No Known Allergies (Unverified , 03/07/17) Objective Vital Signs Last 24 Hour Vital Signs Date Time Temp Pulse Resp B/P (MAP) Pulse Ox O2 Delivery O2 Flow Rate FiO2 07/10/17 14:39 95 20 40 07/10/17 13:48 74 20 40 07/10/17 12:00 97.7 95 20 118/68 100 Mechanical Ventilator 40 07/10/17 12:00 98 07/10/17 12:00 40 07/10/17 11:40 95 18 40 07/10/17 10:12 104 129/69 07/10/17 10:11 129/69 07/10/17 09:13 103 26 40 07/10/17 08:00 40 07/10/17 08:00 106 07/10/17 08:00 98.1 104 22 129/69 100 Mechanical Ventilator 40 07/10/17 07:04 105 21 40 07/10/17 05:25 121 23 40 07/10/17 04:00 40 07/10/17 04:00 98.4 110 21 104/54 99 Mechanical Ventilator 40 07/10/17 04:00 103 07/10/17 03:16 98 19 40 07/10/17 01:20 112 24 40 07/10/17 00:00 107 07/10/17 00:00 40 07/09/17 23:56 98.2 108 25 108/53 99 07/09/17 23:16 111 23 40 07/09/17 21:05 104 25 40 07/09/17 21:00 104 95/51 07/09/17 20:26 98.9 106 20 95/51 100 Mechanical Ventilator 40 07/09/17 20:00 102 07/09/17 20:00 40 07/09/17 19:35 107 22 40 07/09/17 17:18 109 22 40 07/09/17 16:00 120 07/09/17 16:00 99.2 120 25 94/53 100 Mechanical Ventilator 40 07/09/17 16:00 40 Height (Feet): 5 Height (Inches): 8.00 Weight (Pounds): 130 Objective GEN: awake, alert, non toxic appearing, diaphoretic, cachectic. HEENT: Mild pale conjunctiva. oral mucosa dry, pharynx w/o exudate or effusion. No icterus. Head normocephalic, neck supple. trach c/d/i w/o significant aspirate. NECK: No cervical LAD CHEST: Clear to auscultation bilaterally. HEART: tachycardic, S1 and S2, no murmurs, no rubs. ABDOMEN: soft, non tender, non distended, normoactive bowel sounds. peg tube. some scant bleeding adjacent to peg tube where two red rubber catheters are sutured to skin EXTREMITIES: No cyanosis, + clubbing, no edema. RUE picc w/o fluctuance, erythema, but + bleeding at the exit site. NEUROLOGIC: Awake, alert, at baseline : tierney in place draining clear yellow urine LYMPH: shotty b/l inguinal LAD RECTAL: deferred. wound care notes and photos reviewed. Microbiology Date/Time Source Procedure Growth Status 07/08/17 22:30 Blood Blood Culture - Preliminary NO GROWTH AFTER 24 HOURS Resulted 07/08/17 22:15 Blood Blood Culture - Preliminary Resulted 07/08/17 22:20 Indwelling Cath Urine Culture - Preliminary Gram Negative Bacillus 1 Gram Negative Bacillus 2 Resulted Radiology Patient : RILEY BELLO Referring Physician: Colby Friend M.D. ID Number: [id number] Service Date: 07/10/17 : 1960 Report Date: 07/10/17 Gender: M Accession No.: [id number] Location: 2W Procedure: CT Abdomen Pelvis WO Contrast Indication: Abdominal pain Technique: Continuous helical transaxial imaging of the abdomen and pelvis was obtained from the lung bases to the pubic symphysis. No intravenous contrast was administered. Coronal 2-D reformats were also obtained. Total Dose length Product (DLP): [address] Dose Index Volume (CTDIvol): 11.4 mGy Comparison: none Findings: The lung bases show basilar consolidation and trace effusions. The gallbladder is distended. No obvious stones seen on this exam within the gallbladder. There are multiple small nonobstructive stones within the kidneys bilaterally. There is no hydronephrosis. There is perinephric stranding present nonspecific. There is thickening of the urinary bladder wall. There is air in the bladder lumen. Please correlate for recent Tierney placement or instrumentation. Aorta shows mural calcification and is normal in caliber. Gastrostomy noted in good position. Generalized subcutaneous edema noted. Prominent decubitus ulcer noted posterior to the sacrum. Prominent erosive changes of the lower sacrum and coccyx demonstrated. Moderate gluteal soft tissue ossification demonstrated bilaterally. Impression: Multiple bilateral nonobstructive stones within the kidneys. Perinephric stranding is nonspecific. Basilar consolidation versus atelectasis with trace bilateral pleural effusions. Pacemaker. Distended gallbladder, nonspecific. Thickening of the urinary bladder wall. Cystitis not excluded. Anasarca Air in the bladder lumen. Please correlate clinically for recent Tierney placement. Sacral decubitus ulcer and chronic osteomyelitis erosion of the sacrum/coccyx. Atherosclerotic disease Gastrostomy Laboratory Tests Test 07/10/17 04:00 White Blood Count 15.5 K/UL (4.8-10.8) H Red Blood Count 2.41 M/UL (4.70-6.10) L Hemoglobin 7.1 G/DL (14.2-18.0) L Hematocrit 22.0 % (42.0-52.0) L Mean Corpuscular Volume 91 FL (80-99) Mean Corpuscular Hemoglobin 29.3 PG (27.0-31.0) Mean Corpuscular Hemoglobin Concent 32.1 G/DL (32.0-36.0) Red Cell Distribution Width 16.4 % (11.6-14.8) H Platelet Count 447 K/UL (150-450) Mean Platelet Volume 5.4 FL (6.5-10.1) L Neutrophils (%) (Auto) % (45.0-75.0) Lymphocytes (%) (Auto) % (20.0-45.0) Monocytes (%) (Auto) % (1.0-10.0) Eosinophils (%) (Auto) % (0.0-3.0) Basophils (%) (Auto) % (0.0-2.0) Erythrocyte Sedimentation Rate 140 MM/HR (0-20) H Sodium Level 143 mEQ/L (135-145) Potassium Level 2.0 mEQ/L (3.4-4.9) #*L Chloride Level 104 mEQ/L (98-107) Carbon Dioxide Level 27 mEQ/L (20-30) Anion Gap 12 (5-15) Blood Urea Nitrogen 17 mg/dL (7-23) Creatinine 0.4 mg/dL (0.7-1.2) L Estimat Glomerular Filtration Rate > 60 mL/min (>60) Glucose Level 84 mg/dL (74-106) Calcium Level 8.8 mg/dL (8.6-10.2) Phosphorus Level 3.6 mg/dL (2.5-4.8) Magnesium Level 1.5 mg/dL (1.7-2.5) L Total Bilirubin 0.2 mg/dL (0.0-1.2) Aspartate Amino Transf (AST/SGOT) 23 U/L (5-40) Alanine Aminotransferase (ALT/SGPT) 24 U/L (3-41) Alkaline Phosphatase 144 U/L (40-129) H C-Reactive Protein, Quantitative 14.3 mg/dL (< 0.5) H Total Protein 6.1 g/dL (6.6-8.7) L Albumin 2.1 g/dL (3.5-5.2) L Globulin 4.0 g/dL Albumin/Globulin Ratio 0.5 (1.0-2.7) L Current Medications Medications (Trade) Dose Ordered Sig/Tameka Route PRN Reason Start Time Stop Time Status Last Admin Dose Admin Acetaminophen (Tylenol) 650 mg Q4H PRN ORAL T>100.5 07/09/17 06:45 08/08/17 06:44 Albuterol/ Ipratropium (DuoNeb 0.5-3(2.5)mg/3ml) 3 ml Q4H PRN HHN Shortness of Breath 07/09/17 06:45 07/14/17 06:44 Amiodarone HCl (Cordarone) 200 mg DAILY GT 07/09/17 09:00 08/08/17 08:59 07/10/17 10:11 Carvedilol (Coreg) 3.125 mg Q12HR GT 07/09/17 09:00 08/08/17 08:59 07/10/17 10:12 Dextrose (Dextrose 50%) STAT PRN IV Hypoglycemia 07/09/17 06:45 08/08/17 06:44 Levetiracetam (Keppra) 500 mg Q12HR GT 07/09/17 09:00 08/08/17 08:59 07/10/17 10:11 Lisinopril (Prinivil) 10 mg DAILY GT 07/09/17 09:00 08/08/17 08:59 07/10/17 10:11 Lorazepam (Ativan 2mg/ml 1ml) 2 mg Q2H PRN IV For Anxiety 07/09/17 06:45 07/16/17 06:44 Morphine Sulfate (Morphine Sulfate) 4 mg Q4H PRN IVP Severe Pain (Pain Scale 7-10) 07/09/17 06:45 07/16/17 06:44 07/10/17 10:11 Ondansetron HCl (Zofran) 4 mg Q6H PRN IVP Nausea & Vomiting 07/09/17 06:45 08/08/17 06:44 Piperacillin Sod/ Tazobactam Sod 4.5 gm/Dextrose 110 ml @ 27.5 mls/hr EVERY 8 HOURS IVPB 07/09/17 08:00 07/16/17 07:59 07/10/17 14:13 Polyethylene Glycol (Miralax) 17 gm DAILYPRN PRN ORAL Constipation 07/09/17 06:45 08/08/17 06:44 Potassium Chloride 100 ml @ 50 mls/hr Q2H IVPB 07/10/17 08:30 07/10/17 20:29 07/10/17 14:13 Vancomycin HCl (Vanco rx to dose) 1 ea DAILY PRN MISC . 07/09/17 07:00 08/08/17 06:59 Vancomycin HCl 500 mg/Dextrose 110 ml @ 110 mls/hr Q12HR@0000,1200 IVPB 07/09/17 12:00 07/14/17 11:59 07/10/17 12:54 Zinc Sulfate (Zinc Sulfate) 220 mg DAILY ORAL 07/09/17 09:00 08/08/17 08:59 07/10/17 10:11 Colby Friend M.D. Jul 10, 2017 15:40
[2017-07-10 16:00] VITALS: BP 119/70
[2017-07-10 20:38] VITALS: BP 121/71
[2017-07-10] MEDS ORDERED: Vancomycin 1 GM in D5W 275 ML IV SCH (23:00)
[2017-07-11 00:54] VITALS: BP 116/71
[2017-07-11] MEDS: Vancomycin 500mg/D5W 110ml IVPB SCH ×4 (01:16→11:22)
[2017-07-11 04:00] VITALS: BP 131/83
[2017-07-11 05:33] LABS: BASOPHILS % (AUTO) 0.6 % (0.0-2.0); EOSINOPHILS % (AUTO) 1.6 % (0.0-3.0); LYMPHOCYTES % (AUTO) 8.8 % (20.0-45.0); MEAN CORPUSCULAR HEMOGLOBIN 29.8 PG (27.0-31.0); MEAN CORPUSCULAR HGB CONC 32.9 G/DL (32.0-36.0); MEAN CORPUSCULAR VOLUME 90 FL (80-99); MEAN PLATELET VOLUME 5.2 FL (6.5-10.1); MONOCYTES % (AUTO) 8.3 % (1.0-10.0); NEUTROPHILS % (AUTO) 80.7 % (45.0-75.0); PLATELET COUNT 513 K/UL (150-450); RED BLOOD COUNT 2.97 M/UL (4.70-6.10); WHITE BLOOD COUNT 12.6 K/UL (4.8-10.8)
[2017-07-11] MEDS: Zosyn 4.5gm q8h **Extended infusion IVPB SCH ×6 (05:53→21:09)
[2017-07-11 05:58] LABS: URIC ACID 4.6 mg/dL (3.0-7.5)
[2017-07-11 06:06] LABS: INR 10.1 (0.9-1.1)
[2017-07-11 06:43] LABS: ALANINE AMINOTRANSFERASE 24 U/L (3-41); ALBUMIN/GLOBULIN RATIO 0.5 (1.0-2.7); ANION GAP 13 (5-15); ASPARTATE AMINO TRANSFERASE 23 U/L (5-40); CALCIUM 9.1 mg/dL (8.6-10.2); CARBON DIOXIDE 24 mEQ/L (20-30); CHLORIDE 105 mEQ/L (98-107); CREATININE 0.4 mg/dL (0.7-1.2); GLOMERULAR FILTRATION RATE > 60 mL/min (>60); HEMOLYSIS 5; MAGNESIUM 1.5 mg/dL (1.7-2.5); PHOSPHORUS 3.3 mg/dL (2.5-4.8); POTASSIUM 3.5 mEQ/L (3.4-4.9); SODIUM 142 mEQ/L (135-145); TOTAL PROTEIN 6.3 g/dL (6.6-8.7)
[2017-07-11 07:51] LABS: PROTHROMBIN TIME 91.1 SEC (9.30-11.50)
[2017-07-11 07:53] LABS: INR 8.5 (0.9-1.1)
[2017-07-11 08:00] VITALS: BP 136/84
[2017-07-11] MEDS: levETIRAcetam 500mg/5ml Liquid GT SCH ×2 (08:43→21:09)
[2017-07-11] MEDS: Zinc Sulfate 220mg cap ORAL SCH (08:43)
[2017-07-11] MEDS: Amiodarone 200mg tab GT SCH (08:43)
[2017-07-11] MEDS: Lisinopril 20mg tab GT SCH (08:44)
[2017-07-11 09:36] LABS: ANISOCYTOSIS 1+; BAND NEUTROPHILS % (MANUAL) 0 % (0-8); BASOPHILS % (MANUAL) 0 % (0-2); EOSINOPHILS % (MANUAL) 3 % (0-3); HYPOCHROMASIA 1+; LYMPHOCYTES % (MANUAL) 6 % (20-45); NEUTROPHILS % (MANUAL) 85 % (45-75); PLATELET ESTIMATE INCREASED; TOTAL CELLS COUNTED 100
[2017-07-11 09:57] LABS: ABG ALLEN TEST POSITIVE; ABG BASE EXCESS 3.6
[2017-07-11 10:07] LABS: PLATELET MORPHOLOGY NORMAL
[2017-07-11 10:56] LABS: PATH BLOOD SMEAR/OMC SENT TO PATHOLOGIST
--- NOTE | 2017-07-11 11:24 | Pulmonology Progress Note ---
Assessment/Plan Problems: (1) Sepsis (2) Atrial fibrillation (3) Feeding by G-tube (4) EF of 30 Respiratory: monitor respiratory rate Cardiac: start pressors, continue to monitor HR/BP Renal: F/U I&O, keep IV fluid Infectious Disease: check cultures Gastrointestinal: continue feedings/current rate Endocrine: check TSH, continue sliding scale insulin Hematologic: monitor H/H, transfuse if hgb<8.5 Neurologic: PRN Morphine, keep patient comfortable Prophylaxis: Protonix, Heparin Time Spent (Minutes): 40 Notes Reviewed: cardio Discussed with: nurses, consultants, supportive employment case manager Subjective ROS Limited/Unobtainable: No Constitutional: Reports: no symptoms HEENT: Repors: no symptoms Respiratory: Reports: no symptoms Allergies: Coded Allergies: No Known Allergies (Unverified , 03/07/17) Objective Last 24 Hour Vital Signs Date Time Temp Pulse Resp B/P (MAP) Pulse Ox O2 Delivery O2 Flow Rate FiO2 07/11/17 10:39 84 17 40 07/11/17 09:14 93 19 40 07/11/17 08:44 136/84 07/11/17 08:43 96 136/84 07/11/17 08:00 40 07/11/17 08:00 98 07/11/17 08:00 97.3 101 22 136/84 100 Mechanical Ventilator 40 07/11/17 07:24 100 22 40 07/11/17 05:11 94 17 40 07/11/17 04:00 97.3 94 22 131/83 100 Mechanical Ventilator 40 07/11/17 04:00 97.3 94 22 131/83 100 Mechanical Ventilator 40 07/11/17 04:00 40 07/11/17 03:45 99 07/11/17 02:51 89 18 40 07/11/17 01:13 83 18 40 07/11/17 00:54 97.4 89 20 116/71 100 Mechanical Ventilator 40 07/11/17 00:00 40 07/11/17 00:00 85 07/10/17 23:06 90 18 40 07/10/17 21:48 92 121/71 07/10/17 21:15 92 18 40 07/10/17 20:38 97.9 89 24 121/71 100 Mechanical Ventilator 40 07/10/17 20:00 40 07/10/17 20:00 90 07/10/17 19:00 87 21 40 07/10/17 17:01 95 17 40 07/10/17 16:00 97.0 94 20 119/70 100 Mechanical Ventilator 40 07/10/17 16:00 40 07/10/17 16:00 98 07/10/17 14:39 95 20 40 07/10/17 13:48 74 20 40 07/10/17 12:00 97.7 95 20 118/68 100 Mechanical Ventilator 40 07/10/17 12:00 98 07/10/17 12:00 40 07/10/17 11:40 95 18 40 Intake and Output 07/11/17 07/12/17 19:00 07:00 Intake Total 172.5 ml Balance 172.5 ml IV Total 82.5 ml Tube Feeding 90 ml # Bowel Movements 1 General Appearance: WD/WN HEENT: normocephalic, atraumatic Respiratory/Chest: chest wall non-tender, lungs clear Cardiovascular: normal peripheral pulses, normal rate Abdomen: normal bowel sounds, soft, non tender Genitourinary: normal external genitalia Extremities: no cyanosis 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: desizing machine operator 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 normal, abnormal gait Lymphatic: no groin adenopathy Microbiology Date/Time Source Procedure Growth Status 07/08/17 22:30 Blood Blood Culture - Preliminary NO GROWTH AFTER 48 HOURS Resulted 07/08/17 22:15 Blood Blood Culture - Preliminary Gram Positive Cocci Resulted 07/09/17 08:01 Nasal Nares MRSA Culture - Final NO METHICILLIN RESISTANT STAPH AUREUS... Complete 07/08/17 22:20 Indwelling Cath Urine Culture - Preliminary Klebsiella Pneumoniae - Mdr Pseudomonas Aeruginosa Resulted 07/09/17 08:01 Rectum VRE Culture - Final NO VANCOMYCIN RESISTANT ENTEROCOCCUS ... Complete Laboratory Tests 07/10/17 23:00: Vancomycin Level Trough 21.6H 07/11/17 04:10: White Blood Count 12.6H, Red Blood Count 2.97L, Hemoglobin 8.8L, Hematocrit 26.9L, Mean Corpuscular Volume 90, Mean Corpuscular Hemoglobin 29.8, Mean Corpuscular Hemoglobin Concent 32.9, Red Cell Distribution Width 16.0H, Platelet Count 513H, Mean Platelet Volume 5.2L, Neutrophils (%) (Auto) 80.7H, Lymphocytes (%) (Auto) 8.8L, Monocytes (%) (Auto) 8.3, Eosinophils (%) (Auto) 1.6, Basophils (%) (Auto) 0.6, Differential Total Cells Counted 100, Neutrophils % (Manual) 85H, Lymphocytes % (Manual) 6L, Monocytes % (Manual) 6, Eosinophils % (Manual) 3, Basophils % (Manual) 0, Band Neutrophils 0, Platelet Estimate IncreasedH, Platelet Morphology Normal, Hypochromasia 1+, Anisocytosis 1+, Reticulocyte Count 1.0, Haptoglobin 293H, Prothrombin Time 108.0H, Prothromb Time International Ratio 10.1*H, Sodium Level 142, Potassium Level 3.5 #, Chloride Level 105, Carbon Dioxide Level 24, Anion Gap 13, Blood Urea Nitrogen 12, Creatinine 0.4L, Estimat Glomerular Filtration Rate > 60, Glucose Level 103, Uric Acid 4.6, Calcium Level 9.1, Phosphorus Level 3.3, Magnesium Level 1.5L, Iron Level 27L, Total Iron Binding Capacity 128L, Percent Iron Saturation 21, Unsaturated Iron Binding 101L, Ferritin 1006H, Total Bilirubin 0.2, Aspartate Amino Transf (AST/SGOT) 23, Alanine Aminotransferase (ALT/SGPT) 24, Alkaline Phosphatase 152H, Lactate Dehydrogenase 157, Total Protein 6.3L, Albumin 2.3L, Globulin 4.0, Albumin/Globulin Ratio 0.5L, Vitamin B12 Level 887, Folate [Pending], Homocystine [Pending] 07/11/17 06:30: Prothrombin Time 91.1H, Prothromb Time International Ratio 8.5*H 07/11/17 09:44: Arterial Blood pH 7.450, Arterial Blood Partial Pressure CO2 41.0, Arterial Blood Partial Pressure O2 164.1H, Arterial Blood HCO3 27.9H, Arterial Blood Oxygen Saturation 99.0H, Arterial Blood Base Excess 3.6, Son Test Positive Current Medications Medications (Trade) Dose Ordered Sig/Tameka Route PRN Reason Start Time Stop Time Status Last Admin Dose Admin Acetaminophen (Tylenol) 650 mg Q4H PRN ORAL T>100.5 07/09/17 06:45 08/08/17 06:44 Albuterol/ Ipratropium (DuoNeb 0.5-3(2.5)mg/3ml) 3 ml Q4H PRN HHN Shortness of Breath 07/09/17 06:45 07/14/17 06:44 Amiodarone HCl (Cordarone) 200 mg DAILY GT 07/09/17 09:00 08/08/17 08:59 07/11/17 08:43 Carvedilol (Coreg) 3.125 mg Q12HR GT 07/09/17 09:00 08/08/17 08:59 07/11/17 08:43 Dextrose (Dextrose 50%) STAT PRN IV Hypoglycemia 07/09/17 06:45 08/08/17 06:44 Levetiracetam (Keppra) 500 mg Q12HR GT 07/09/17 09:00 08/08/17 08:59 07/11/17 08:43 Lisinopril (Prinivil) 10 mg DAILY GT 07/09/17 09:00 08/08/17 08:59 07/11/17 08:44 Lorazepam (Ativan 2mg/ml 1ml) 2 mg Q2H PRN IV For Anxiety 07/09/17 06:45 07/16/17 06:44 Morphine Sulfate (Morphine Sulfate) 4 mg Q4H PRN IVP Severe Pain (Pain Scale 7-10) 07/09/17 06:45 07/16/17 06:44 07/10/17 21:49 Ondansetron HCl (Zofran) 4 mg Q6H PRN IVP Nausea & Vomiting 07/09/17 06:45 08/08/17 06:44 Piperacillin Sod/ Tazobactam Sod 4.5 gm/Dextrose 110 ml @ 27.5 mls/hr EVERY 8 HOURS IVPB 07/09/17 08:00 07/16/17 07:59 07/11/17 05:53 Polyethylene Glycol (Miralax) 17 gm DAILYPRN PRN ORAL Constipation 07/09/17 06:45 08/08/17 06:44 Vancomycin HCl (Vanco rx to dose) 1 ea DAILY PRN MISC . 07/09/17 07:00 08/08/17 06:59 Vancomycin HCl 500 mg/Dextrose 110 ml @ 110 mls/hr Q12HR@0000,1200 IVPB 07/09/17 12:00 07/14/17 11:59 07/11/17 11:22 Zinc Sulfate (Zinc Sulfate) 220 mg DAILY ORAL 07/09/17 09:00 08/08/17 08:59 07/11/17 08:43 ODETTE SMILEY Jul 11, 2017 11:24
[2017-07-11 12:00] VITALS: BP 121/75
--- NOTE | 2017-07-11 14:31 | Infectious Diseases Prog Note ---
Assessment/Plan Assessment/Plan ASSESSMENT: LLL pneumonia, r/o PICC line associated bacteremia, r/o chronic sacral osteomyelitis source. Has defervesced >48 hrs and WBC down from 18 to 12.6 on empiric IV vanc and zosyn 4.5gm q8hr extended infusion. 1) Sepsis--not on pressors, hypotension resolved s/p fluid bolus. Likely secondary to hypovolemia secondary to dehydration, LLL pneumonia, and possible sepsis from chronic sacral wound. appreciate wound care eval; his sacrococcygeal ulcer does have some of the foul smell it did in early May2017 s /p Dakin's. prior surgical eval. 2) LLL pneumonia 3) Dehydration--based on exam, serum Na, BUn/Cr ratio 4) Stage IV sacral decubitus ulcers --recent wcx: MDR ACB, C albicans, and KPC (sensitive only to colistin) during early May2017, his sacral decubitus ulcer probes to bone. has been evaluated by surgery and not considered surgical candidate, and he's received close care from the wound team, previously receiving Dakin's and chemical debridement of foul smelling fibrinous exudate centrally 5) Chronic sacrococcygeal osteomyelitis. see #4 above. could not obtain MRI b/c on vent and has AICD CT with contrast--some sacral/coccygeal erosion, but no abscess. no profound progression. 6) Leukocytosis with bandemia, improving 7) Fever, resolved 8) Elevated alk phos, stable s/p u/s 06/13 with some GB wall thickening, no definite stone, acute acalculous cholecystitis not entirely excluded s/p U/s last admission negative for acute process secondary to chronic sacral bone osteolysis CT a/p w/o evidence of acute cholecystitis 9) HCV Ab+, no transaminitis currently. HIV negative on last admission 10) s/p diarrhea. recent C diff on last admission negative 11) h/o recurrent HCAP/VAP--MDR-ACB, KPC, Providencia, XDR Pseudomonas. No bacteremia documented in 2017. s/p treatment s/p (06/17 s/p vancomycin, cefepime D#7) (06/15 s/p amikacin D#4) (06/14 s/p flagyl D#2) (06/12 s/p ertapenem x1) (05/27 s/p tigecycline and colistin D#14/, meropenem D#/) (05/15 s/p IV vancomycin and zosyn D#5) s/p D#7 meroepenem and inhaled colistin (03/13 s/p vancomycin and zosyn D#5) 11) elevated ESR (117), low elevation of CRP--at last admission 12) reactive thrombocytosis 13) h/o UTI (06/25/17 s/p IV vanc/zosyn D#3) 14. bleeding at [facility] picc. 15. MDR Psa and Klebsiella x2 in urine. u/a was not consistent with acute UTI, so suspect he has bacteriuria only. and he is responding on current therapy despite these organisms being resistant to pip/tazo. 16. Elevated inflammatory markers: ESR 140mm/hr, CRP 14.3 mg/dL 17. GPC in clusters from blood cx--one of 4 bottles from admission Chronic anoxic encephalopathy--mentation at baseline -h/o cardiac arrest Borderline hypernatremia hypokalemia Cachexia with elevated CEA, normal PSA Acute on chronic anemia Sinus tachycardia respiratory alkalosis Chronic VDRF, s/p trach and PEG Cardiomyopathy s/p defibrillatory placement Paroxysmal Afib [facility] Living resident MDRO colonized NKDA hypokalemia AM cortisol negative for adrenal insufficiency Full code? PLAN: --Continue empiric IV zosyn and vancomycin D#3 for LLL HCAP. --f/u sputum cx --f/u blood cx from 07/08 growing one possible MRSA vs MSSA vs CoNS. lab will have result by tommorrow. not sure if this was from the peripheral stick or from the picc. if ends up being MRSA or MSSA, the picc will have to be removed. --f/u surveillance blood cx from 07/10 ngtd. --Monitor CXR --monitor CBC --monitor temp curve --leukocytosis improving and and fevers resolved, so no indication to add on empiric IV colistin despite prior h/o MDR ACB and KPC (sensitive only to colistin) previously isolated from this chronic sacral wound. --Ventilatory support, tracheostomy care, aspiration precautions. --s/p Wound care consult --recommend repeat surgical evaluation for his chronic sacral wounds to assess for need for soft tissue coverage. Will continue to follow. Covering for Dr. Naqvi, please call me with questions, Subjective ROS Limited/Unobtainable: Yes Allergies: Coded Allergies: No Known Allergies (Unverified , 03/07/17) Objective Vital Signs Last 24 Hour Vital Signs Date Time Temp Pulse Resp B/P (MAP) Pulse Ox O2 Delivery O2 Flow Rate FiO2 07/11/17 13:08 90 18 40 07/11/17 12:00 97.2 92 22 121/75 100 Mechanical Ventilator 30 07/11/17 12:00 30 07/11/17 10:39 84 17 40 07/11/17 09:14 93 19 40 07/11/17 08:44 136/84 07/11/17 08:43 96 136/84 07/11/17 08:00 40 07/11/17 08:00 98 07/11/17 08:00 97.3 101 22 136/84 100 Mechanical Ventilator 40 07/11/17 07:24 100 22 40 07/11/17 05:11 94 17 40 07/11/17 04:00 97.3 94 22 131/83 100 Mechanical Ventilator 40 07/11/17 04:00 97.3 94 22 131/83 100 Mechanical Ventilator 40 07/11/17 04:00 40 07/11/17 03:45 99 07/11/17 02:51 89 18 40 07/11/17 01:13 83 18 40 07/11/17 00:54 97.4 89 20 116/71 100 Mechanical Ventilator 40 07/11/17 00:00 40 07/11/17 00:00 85 07/10/17 23:06 90 18 40 07/10/17 21:48 92 121/71 07/10/17 21:15 92 18 40 07/10/17 20:38 97.9 89 24 121/71 100 Mechanical Ventilator 40 07/10/17 20:00 40 07/10/17 20:00 90 07/10/17 19:00 87 21 40 07/10/17 17:01 95 17 40 07/10/17 16:00 97.0 94 20 119/70 100 Mechanical Ventilator 40 07/10/17 16:00 40 07/10/17 16:00 98 07/10/17 14:39 95 20 40 Height (Feet): 5 Height (Inches): 8.00 Weight (Pounds): 130 Objective GEN: awake, alert, non toxic appearing, no longer diaphoretic, cachectic. HEENT: Mild pale conjunctiva. oral mucosa dry, pharynx w/o exudate or effusion. No icterus. Head normocephalic, neck supple. trach c/d/i w/o significant aspirate. NECK: No cervical LAD CHEST: Clear to auscultation bilaterally. HEART: tachycardic, S1 and S2, no murmurs, no rubs. ABDOMEN: soft, non tender, non distended, normoactive bowel sounds. peg tube. some scant bleeding adjacent to peg tube where two red rubber catheters are sutured to skin EXTREMITIES: No cyanosis, + clubbing, no edema. RUE picc w/o fluctuance, erythema, and prior bleeding at the exit site has resolved. NEUROLOGIC: Awake, alert, at baseline : condom cath in place draining clear yellow urine LYMPH: shotty b/l inguinal LAD RECTAL: deferred. wound care notes and photos reviewed. large soft stool in bed Microbiology Date/Time Source Procedure Growth Status 07/08/17 22:30 Blood Blood Culture - Preliminary NO GROWTH AFTER 48 HOURS Resulted 07/08/17 22:15 Blood Blood Culture - Preliminary Gram Positive Cocci Resulted 07/09/17 08:01 Nasal Nares MRSA Culture - Final NO METHICILLIN RESISTANT STAPH AUREUS... Complete 07/08/17 22:20 Indwelling Cath Urine Culture - Preliminary Klebsiella Pneumoniae - Mdr Pseudomonas Aeruginosa Resulted 07/09/17 08:01 Rectum VRE Culture - Final NO VANCOMYCIN RESISTANT ENTEROCOCCUS ... Complete Laboratory Tests Test 07/10/17 23:00 07/11/17 04:10 07/11/17 06:30 07/11/17 09:44 Vancomycin Level Trough 21.6 ug/mL (5.0-12.0) H White Blood Count 12.6 K/UL (4.8-10.8) H Red Blood Count 2.97 M/UL (4.70-6.10) L Hemoglobin 8.8 G/DL (14.2-18.0) L Hematocrit 26.9 % (42.0-52.0) L Mean Corpuscular Volume 90 FL (80-99) Mean Corpuscular Hemoglobin 29.8 PG (27.0-31.0) Mean Corpuscular Hemoglobin Concent 32.9 G/DL (32.0-36.0) Red Cell Distribution Width 16.0 % (11.6-14.8) H Platelet Count 513 K/UL (150-450) H Mean Platelet Volume 5.2 FL (6.5-10.1) L Neutrophils (%) (Auto) 80.7 % (45.0-75.0) H Lymphocytes (%) (Auto) 8.8 % (20.0-45.0) L Monocytes (%) (Auto) 8.3 % (1.0-10.0) Eosinophils (%) (Auto) 1.6 % (0.0-3.0) Basophils (%) (Auto) 0.6 % (0.0-2.0) Differential Total Cells Counted 100 Neutrophils % (Manual) 85 % (45-75) H Lymphocytes % (Manual) 6 % (20-45) L Monocytes % (Manual) 6 % (1-10) Eosinophils % (Manual) 3 % (0-3) Basophils % (Manual) 0 % (0-2) Band Neutrophils 0 % (0-8) Platelet Estimate Increased H Platelet Morphology Normal Hypochromasia 1+ Anisocytosis 1+ Reticulocyte Count 1.0 % (0.0-2.0) Haptoglobin 293 mg/dL (30-200) H Prothrombin Time 108.0 SEC (9.30-11.50) H 91.1 SEC (9.30-11.50) H Prothromb Time International Ratio 10.1 (0.9-1.1) *H 8.5 (0.9-1.1) *H Sodium Level 142 mEQ/L (135-145) Potassium Level 3.5 mEQ/L (3.4-4.9) # Chloride Level 105 mEQ/L (98-107) Carbon Dioxide Level 24 mEQ/L (20-30) Anion Gap 13 (5-15) Blood Urea Nitrogen 12 mg/dL (7-23) Creatinine 0.4 mg/dL (0.7-1.2) L Estimat Glomerular Filtration Rate > 60 mL/min (>60) Glucose Level 103 mg/dL (74-106) Uric Acid 4.6 mg/dL (3.0-7.5) Calcium Level 9.1 mg/dL (8.6-10.2) Phosphorus Level 3.3 mg/dL (2.5-4.8) Magnesium Level 1.5 mg/dL (1.7-2.5) L Iron Level 27 ug/dL (59-158) L Total Iron Binding Capacity 128 ug/dL (250-400) L Percent Iron Saturation 21 % (15-50) Unsaturated Iron Binding 101 ug/dL (112-346) L Ferritin 1006 ng/mL (10-230) H Total Bilirubin 0.2 mg/dL (0.0-1.2) Aspartate Amino Transf (AST/SGOT) 23 U/L (5-40) Alanine Aminotransferase (ALT/SGPT) 24 U/L (3-41) Alkaline Phosphatase 152 U/L (40-129) H Lactate Dehydrogenase 157 U/L (135-230) Total Protein 6.3 g/dL (6.6-8.7) L Albumin 2.3 g/dL (3.5-5.2) L Globulin 4.0 g/dL Albumin/Globulin Ratio 0.5 (1.0-2.7) L Vitamin B12 Level 887 pg/mL (211-946) Folate Pending Homocystine Pending Arterial Blood pH 7.450 (7.350-7.450) Arterial Blood Partial Pressure CO2 41.0 mmHg (35.0-45.0) Arterial Blood Partial Pressure O2 164.1 mmHg (75.0-100.0) H Arterial Blood HCO3 27.9 mmol/L (22.0-26.0) H Arterial Blood Oxygen Saturation 99.0 % (92.0-98.0) H Arterial Blood Base Excess 3.6 Son Test Positive Current Medications Medications (Trade) Dose Ordered Sig/Tameka Route PRN Reason Start Time Stop Time Status Last Admin Dose Admin Acetaminophen (Tylenol) 650 mg Q4H PRN ORAL T>100.5 07/09/17 06:45 08/08/17 06:44 Albuterol/ Ipratropium (DuoNeb 0.5-3(2.5)mg/3ml) 3 ml Q4H PRN HHN Shortness of Breath 07/09/17 06:45 07/14/17 06:44 Amiodarone HCl (Cordarone) 200 mg DAILY GT 07/09/17 09:00 08/08/17 08:59 07/11/17 08:43 Carvedilol (Coreg) 3.125 mg Q12HR GT 07/09/17 09:00 08/08/17 08:59 07/11/17 08:43 Dextrose (Dextrose 50%) STAT PRN IV Hypoglycemia 07/09/17 06:45 08/08/17 06:44 Levetiracetam (Keppra) 500 mg Q12HR GT 07/09/17 09:00 08/08/17 08:59 07/11/17 08:43 Lisinopril (Prinivil) 10 mg DAILY GT 07/09/17 09:00 08/08/17 08:59 07/11/17 08:44 Lorazepam (Ativan 2mg/ml 1ml) 2 mg Q2H PRN IV For Anxiety 07/09/17 06:45 07/16/17 06:44 Morphine Sulfate (Morphine Sulfate) 4 mg Q4H PRN IVP Severe Pain (Pain Scale 7-10) 07/09/17 06:45 07/16/17 06:44 07/10/17 21:49 Ondansetron HCl (Zofran) 4 mg Q6H PRN IVP Nausea & Vomiting 07/09/17 06:45 08/08/17 06:44 Piperacillin Sod/ Tazobactam Sod 4.5 gm/Dextrose 110 ml @ 27.5 mls/hr EVERY 8 HOURS IVPB 07/09/17 08:00 07/16/17 07:59 07/11/17 13:13 Polyethylene Glycol (Miralax) 17 gm DAILYPRN PRN ORAL Constipation 07/09/17 06:45 08/08/17 06:44 Vancomycin HCl (Vanco rx to dose) 1 ea DAILY PRN MISC . 07/09/17 07:00 08/08/17 06:59 Vancomycin HCl 500 mg/Dextrose 110 ml @ 110 mls/hr Q12HR@0000,1200 IVPB 07/09/17 12:00 07/14/17 11:59 07/11/17 11:22 Zinc Sulfate (Zinc Sulfate) 220 mg DAILY ORAL 07/09/17 09:00 08/08/17 08:59 07/11/17 08:43 Colby Friend M.D. Jul 11, 2017 14:31
[2017-07-11] MEDS: Morphine Sulfate 4mg/ml Inj IVP PRN ×2 (15:15→22:58)
[2017-07-11 16:00] VITALS: BP 122/72
[2017-07-11] MEDS ORDERED: NS 275ml ONE (16:43)
[2017-07-11] MEDS ORDERED: Tubing IV Secondary IV ONE (16:43)
[2017-07-11 20:39] VITALS: BP 112/68
[2017-07-12 00:55] VITALS: BP 113/76
[2017-07-12 04:00] VITALS: BP 113/73
--- NOTE | 2017-07-12 05:00 | Consultation ---
DATE OF CONSULTATION: 07/09/2017 NOTE: "POOR AUDIO QUALITY" HEMATOLOGY/ONCOLOGY CONSULTATION REQUESTING PHYSICIAN: Shani Moses M.D. REASON FOR CONSULTATION: Evaluation of anemia hypercoagulable disorder. IDENTIFYING DATA: Dear Dr. Moses, The patient is a pleasant 57-year-old male with past medical history significant for chronic ventilator-dependent respiratory failure, dysphagia status post G-tube, bedbound, at this time presents with chief complaint of fever, lives in custodial, medical records obtained, unable to provide further history, diagnosed with sepsis and admitted to the hospital, seen by ID service. Multiple admissions in the past for similar symptoms requiring antibiotics, antibiotics were given. He was noted to have coagulopathy as well as having hepatitis C positive history in the past, noted to have anemia, which was acute onset, so Hematology service consulted. PAST MEDICAL HISTORY: Chronic ventilator-dependent respiratory failure, ischemic cardiomyopathy, hypertension, paroxysmal atrial fibrillation, hepatitis C positive with multiple hospitalizations. PAST SURGICAL HISTORY: AICD, tracheostomy, and PEG tube. ALLERGIES: No known drug allergies. SOCIAL HISTORY: halfway resident. Trach and PEG. FAMILY HISTORY: Noncontributory. REVIEW OF SYSTEMS: A 11-point review of systems obtained except as noted in the history of present illness. PHYSICAL EXAMINATION: GENERAL: No acute distress, nontoxic. VITAL SIGNS: Temperature 101 degrees Fahrenheit, pulse of 83, respiratory rate 20, on mechanical ventilator FiO2 30%. CARDIOVASCULAR: Regular rhythm. No S3 or S4. ABDOMEN: Soft and nontender. EXTREMITIES: There is 1+ to 2+ edema. Some bleeding noted at the exit site. LABORATORY DATA: WBC of 19,000; hemoglobin 10, hematocrit 30, and platelet count . ASSESSMENT AND PLAN: 1. Leukocytosis, likely secondary to history of bandemia. 2. Coagulopathy, will need to be rechecked urgently with an INR and consider administration of vitamin K if needed. 3. Bleeding from right upper extremity PICC line. Closely monitor. 4. Anemia, acute onset. Workup to be obtained as well as occult blood. 5. Hepatitis C positive test, no transaminitis noted. 6. Status post pyuria. Recent Clostridium difficile was negative. 7. Stage IV decubitus ulcerations, growing multiple organisms. Please see ID note. 8. Thrombocytosis . I appreciate the consultation. Venancio James M.D. DR: MINDY JOB#: [id number] CC:
[2017-07-12] MEDS: Zosyn 4.5gm q8h **Extended infusion IVPB SCH ×6 (05:07→21:11)
[2017-07-12 05:18] LABS: HOMOCYSTINE QUANT <3.0 umol/L (0.0-15.0)
[2017-07-12 06:30] LABS: MEAN CORPUSCULAR HEMOGLOBIN 30.3 PG (27.0-31.0); MEAN CORPUSCULAR HGB CONC 33.1 G/DL (32.0-36.0); MEAN CORPUSCULAR VOLUME 92 FL (80-99); MEAN PLATELET VOLUME 5.1 FL (6.5-10.1); PLATELET COUNT 547 K/UL (150-450); WHITE BLOOD COUNT 21.4 K/UL (4.8-10.8)
[2017-07-12 06:49] LABS: ALANINE AMINOTRANSFERASE 19 U/L (3-41); ALBUMIN/GLOBULIN RATIO 0.5 (1.0-2.7); ANION GAP 9 (5-15); ASPARTATE AMINO TRANSFERASE 18 U/L (5-40); CALCIUM 8.7 mg/dL (8.6-10.2); CARBON DIOXIDE 26 mEQ/L (20-30); CHLORIDE 104 mEQ/L (98-107); CREATININE 0.4 mg/dL (0.7-1.2); GLOMERULAR FILTRATION RATE > 60 mL/min (>60); HEMOLYSIS 4; POTASSIUM 3.5 mEQ/L (3.4-4.9); SODIUM 139 mEQ/L (135-145); TOTAL PROTEIN 6.2 g/dL (6.6-8.7)
[2017-07-12 08:00] VITALS: BP 99/67
[2017-07-12] MEDS: Amiodarone 200mg tab GT SCH (08:43)
[2017-07-12] MEDS: Zinc Sulfate 220mg cap ORAL SCH (08:43)
[2017-07-12] MEDS: Lisinopril 20mg tab GT SCH (08:44)
[2017-07-12] MEDS: levETIRAcetam 500mg/5ml Liquid GT SCH ×2 (08:44→21:10)
[2017-07-12] MEDS ORDERED: Dyna-Hex 2% Top Sol 8oz TOPIC SCH (09:00)
[2017-07-12 09:08] LABS: ANISOCYTOSIS 1+; BAND NEUTROPHILS % (MANUAL) 0 % (0-8); BASOPHILS % (MANUAL) 0 % (0-2); EOSINOPHILS % (MANUAL) 1 % (0-3); HYPOCHROMASIA 1+; LYMPHOCYTES % (MANUAL) 6 % (20-45); NEUTROPHILS % (MANUAL) 85 % (45-75); PLATELET ESTIMATE INCREASED; TOTAL CELLS COUNTED 100
--- NOTE | 2017-07-12 09:09 | Diagnostic Imaging Report ---
Indication: Dyspnea Comparison: 07/08/17 A single view chest radiograph was obtained. Findings: There is a tracheostomy. Suspected infiltrate or atelectasis left lung base. Please correlate clinically. Heart is borderline enlarged. Pulmonary vascularity is prominent. PICC line and pacemaker are again noted. Impression: Some prominence of pulmonary vascularity without overt CHF. Suspected infiltrate left lung base. No significant change
[2017-07-12 09:18] LABS: PLATELET MORPHOLOGY NORMAL
[2017-07-12 10:17] LABS: OTHERS PATHOLOGIST COMMENT
[2017-07-12 12:00] VITALS: BP 100/55
[2017-07-12] MEDS: Vancomycin 750mg/NS 250ml IVPB SCH (12:00)
[2017-07-12] MEDS ORDERED: Vancomycin 750 MG in D5W 275 ML IVPB SCH (12:00)
[2017-07-12] MEDS ORDERED: NS 275ml ONE (13:32)
--- NOTE | 2017-07-12 14:36 | Infectious Diseases Prog Note ---
Assessment/Plan Assessment/Plan ASSESSMENT: LLL pneumonia and coag neg staph RUE picc associated bacteremia. Had defervesced with declining WBC now fevered again early this morning and WBC up to >20. no longer candidate for attempt at limb salvage as repeat 07/10 blood cx drawn from picc is + at 36 hrs and peripheral stick ngtd. 1) Sepsis--not on pressors, hypotension resolved s/p fluid bolus. Likely secondary to hypovolemia secondary to dehydration, LLL pneumonia, and possible sepsis from chronic sacral wound. appreciate wound care eval; his sacrococcygeal ulcer does have some of the foul smell it did in early May2017 s /p Dakin's. prior surgical eval. 2) LLL pneumonia 3) Coag neg staph RUE PICC associated bacteremia--repeat blood cx from 07/10 from picc again positive, neg from peripheral stick, and the catheter has been bleeding 4) MDR Klebsiella and zosyn resistant Pseudomonas bacteriuria w/o pyuria--from condom cath. no indication to treat at this time. 5) Dehydration--based on exam, serum Na, BUn/Cr ratio 6) Stage IV sacral decubitus ulcers --recent wcx: MDR ACB, C albicans, and KPC (sensitive only to colistin) during early May2017, his sacral decubitus ulcer probes to bone. has been evaluated by surgery and not considered surgical candidate, and he's received close care from the wound team, previously receiving Dakin's and chemical debridement of foul smelling fibrinous exudate centrally 7) Chronic sacrococcygeal osteomyelitis. see #4 above. could not obtain MRI b/c on and has AICD CT with contrast--some sacral/coccygeal erosion, but no abscess. no profound progression. 8) Leukocytosis with bandemia, recurred 7) Fever, recurred early this morning 9) Elevated alk phos, stable s/p u/s 06/13 with some GB wall thickening, no definite stone, acute acalculous cholecystitis not entirely excluded s/p U/s last admission negative for acute process secondary to chronic sacral bone osteolysis CT a/p w/o evidence of acute cholecystitis 10) HCV Ab+, no transaminitis currently. HIV negative on last admission 11) s/p diarrhea. recent C diff on last admission negative 12) h/o recurrent HCAP/VAP--MDR-ACB, KPC, Providencia, XDR Pseudomonas. No bacteremia documented in 2017. s/p treatment s/p (06/17 s/p vancomycin, cefepime D#7) (06/15 s/p amikacin D#4) (06/14 s/p flagyl D#2) (06/12 s/p ertapenem x1) (05/27 s/p tigecycline and colistin D#14/14, meropenem D#10/10) (05/15 s/p IV vancomycin and zosyn D#5) s/p D#7 meroepenem and inhaled colistin (03/13 s/p vancomycin and zosyn D#5) 13) elevated ESR (117), low elevation of CRP--at last admission 14) reactive thrombocytosis 15) h/o UTI (06/25/17 s/p IV vanc/zosyn D#3) 16. bleeding at RUE picc. 17. MDR Psa and Klebsiella x2 in urine. u/a was not consistent with acute UTI, so suspect he has bacteriuria only. and he is responding on current therapy despite these organisms being resistant to pip/tazo. 18. Elevated inflammatory markers: ESR 140mm/hr, CRP 14.3 mg/dL Chronic anoxic encephalopathy--mentation at baseline -h/o cardiac arrest Borderline hypernatremia hypokalemia Cachexia with elevated CEA, normal PSA Acute on chronic anemia Sinus tachycardia respiratory alkalosis Chronic VDRF, s/p trach and PEG Cardiomyopathy s/p defibrillatory placement Paroxysmal Afib [facility] resident MDRO colonized NKDA hypokalemia AM cortisol negative for adrenal insufficiency Full code? PLAN: --Continue empiric IV zosyn and vancomycin D#4 for LLL HCAP and coag neg staph RUE picc associated bacteremia. --d/c PICC line and send tip for culture --RUE u/s to r/o associated clot --f/u sputum cx --surveillance blood cx now, one from picc, one from peripheral --Monitor CXR --monitor CBC --monitor temp curve --would not add on empiric IV colistin despite prior h/o MDR ACB and KPC ( sensitive only to colistin) previously isolated from this chronic sacral wound. --Ventilatory support, tracheostomy care, aspiration precautions. --s/p Wound care consult Will continue to follow. Covering for Dr. Naqvi, please call me with questions, Subjective ROS Limited/Unobtainable: Yes Allergies: Coded Allergies: No Known Allergies (Unverified , 03/07/17) Objective Vital Signs Last 24 Hour Vital Signs Date Time Temp Pulse Resp B/P (MAP) Pulse Ox O2 Delivery O2 Flow Rate FiO2 07/12/17 12:42 96 20 30 07/12/17 12:00 94 07/12/17 12:00 98.5 101 19 100/55 100 Mechanical Ventilator 30 07/12/17 12:00 30 07/12/17 10:44 97 21 30 07/12/17 09:22 100 18 30 07/12/17 08:44 99/67 07/12/17 08:44 106 99/67 07/12/17 08:41 105 07/12/17 08:00 98.0 106 19 99/67 100 Mechanical Ventilator 30 07/12/17 08:00 30 07/12/17 07:04 99 18 30 07/12/17 05:08 102 20 30 07/12/17 04:00 30 07/12/17 04:00 97.4 99 16 113/73 100 Mechanical Ventilator 30 07/12/17 04:00 106 07/12/17 03:03 103 18 30 07/12/17 01:00 119 20 30 07/12/17 00:55 101.8 137 31 113/76 98 Mechanical Ventilator 30 07/12/17 00:50 98.1 07/12/17 00:00 128 07/11/17 23:15 131 27 30 07/11/17 21:13 114 24 30 07/11/17 21:09 102 112/68 07/11/17 20:39 98.2 102 22 112/68 98 Mechanical Ventilator 30 07/11/17 20:00 30 07/11/17 19:37 102 07/11/17 19:06 103 21 30 07/11/17 17:16 102 22 30 07/11/17 16:00 30 07/11/17 16:00 97.7 108 26 122/72 97 Mechanical Ventilator 30 07/11/17 16:00 105 07/11/17 15:12 102 20 30 Height (Feet): 5 Height (Inches): 8.00 Weight (Pounds): 130 Objective GEN: awake, alert, non toxic appearing, no longer diaphoretic, cachectic. HEENT: Mild pale conjunctiva. oral mucosa dry, pharynx w/o exudate or effusion. No icterus. Head normocephalic, neck supple. trach c/d/i w/o significant aspirate. NECK: No cervical LAD CHEST: Clear to auscultation bilaterally. HEART: tachycardic, S1 and S2, no murmurs, no rubs. ABDOMEN: soft, non tender, non distended, normoactive bowel sounds. peg tube. some scant bleeding adjacent to peg tube where two red rubber catheters are sutured to skin EXTREMITIES: No cyanosis, + clubbing, no edema. RUE picc w/o fluctuance, erythema, and prior bleeding at the exit site has resolved. NEUROLOGIC: Awake, alert, at baseline : condom cath in place draining clear yellow urine LYMPH: shotty b/l inguinal LAD RECTAL: deferred. wound care notes and photos reviewed. large soft stool in bed Microbiology Date/Time Source Procedure Growth Status 07/10/17 21:30 Blood Blood Culture - Preliminary Resulted 07/10/17 19:15 Blood Blood Culture - Preliminary NO GROWTH AFTER 24 HOURS Resulted Laboratory Tests Test 07/12/17 04:50 White Blood Count 21.4 K/UL (4.8-10.8) #H Red Blood Count 3.00 M/UL (4.70-6.10) L Hemoglobin 9.1 G/DL (14.2-18.0) L Hematocrit 27.5 % (42.0-52.0) L Mean Corpuscular Volume 92 FL (80-99) Mean Corpuscular Hemoglobin 30.3 PG (27.0-31.0) Mean Corpuscular Hemoglobin Concent 33.1 G/DL (32.0-36.0) Red Cell Distribution Width 16.0 % (11.6-14.8) H Platelet Count 547 K/UL (150-450) H Mean Platelet Volume 5.1 FL (6.5-10.1) L Neutrophils (%) (Auto) % (45.0-75.0) Lymphocytes (%) (Auto) % (20.0-45.0) Monocytes (%) (Auto) % (1.0-10.0) Eosinophils (%) (Auto) % (0.0-3.0) Basophils (%) (Auto) % (0.0-2.0) Differential Total Cells Counted 100 Neutrophils % (Manual) 85 % (45-75) H Lymphocytes % (Manual) 6 % (20-45) L Monocytes % (Manual) 8 % (1-10) Eosinophils % (Manual) 1 % (0-3) Basophils % (Manual) 0 % (0-2) Band Neutrophils 0 % (0-8) Platelet Estimate Increased H Platelet Morphology Normal Hypochromasia 1+ Anisocytosis 1+ Sodium Level 139 mEQ/L (135-145) Potassium Level 3.5 mEQ/L (3.4-4.9) Chloride Level 104 mEQ/L (98-107) Carbon Dioxide Level 26 mEQ/L (20-30) Anion Gap 9 (5-15) Blood Urea Nitrogen 11 mg/dL (7-23) Creatinine 0.4 mg/dL (0.7-1.2) L Estimat Glomerular Filtration Rate > 60 mL/min (>60) Glucose Level 110 mg/dL (74-106) H Calcium Level 8.7 mg/dL (8.6-10.2) Total Bilirubin 0.3 mg/dL (0.0-1.2) Aspartate Amino Transf (AST/SGOT) 18 U/L (5-40) Alanine Aminotransferase (ALT/SGPT) 19 U/L (3-41) Alkaline Phosphatase 147 U/L (40-129) H Pro-B-Type Natriuretic Peptide 5026 pg/mL (0-125) H Total Protein 6.2 g/dL (6.6-8.7) L Albumin 2.2 g/dL (3.5-5.2) L Globulin 4.0 g/dL Albumin/Globulin Ratio 0.5 (1.0-2.7) L Current Medications Medications (Trade) Dose Ordered Sig/Tameka Route PRN Reason Start Time Stop Time Status Last Admin Dose Admin Acetaminophen (Tylenol) 650 mg Q4H PRN ORAL T>100.5 07/09/17 06:45 08/08/17 06:44 07/11/17 23:46 Albuterol/ Ipratropium (DuoNeb 0.5-3(2.5)mg/3ml) 3 ml Q4H PRN HHN Shortness of Breath 07/09/17 06:45 07/14/17 06:44 Amiodarone HCl (Cordarone) 200 mg DAILY GT 07/09/17 09:00 08/08/17 08:59 07/12/17 08:43 Carvedilol (Coreg) 3.125 mg Q12HR GT 07/09/17 09:00 08/08/17 08:59 07/12/17 08:44 Chlorhexidine Gluconate (Anny-Hex 2%) 1 applic DAILY TOPIC 07/12/17 09:00 08/11/17 08:59 07/12/17 08:44 Dextrose (Dextrose 50%) STAT PRN IV Hypoglycemia 07/09/17 06:45 08/08/17 06:44 Levetiracetam (Keppra) 500 mg Q12HR GT 07/09/17 09:00 08/08/17 08:59 07/12/17 08:44 Lisinopril (Prinivil) 10 mg DAILY GT 07/09/17 09:00 08/08/17 08:59 07/11/17 08:44 Lorazepam (Ativan 2mg/ml 1ml) 2 mg Q2H PRN IV For Anxiety 07/09/17 06:45 07/16/17 06:44 Morphine Sulfate (Morphine Sulfate) 4 mg Q4H PRN IVP Severe Pain (Pain Scale 7-10) 07/09/17 06:45 07/16/17 06:44 07/11/17 22:58 Ondansetron HCl (Zofran) 4 mg Q6H PRN IVP Nausea & Vomiting 07/09/17 06:45 08/08/17 06:44 Piperacillin Sod/ Tazobactam Sod 4.5 gm/Dextrose 110 ml @ 27.5 mls/hr EVERY 8 HOURS IVPB 07/09/17 08:00 07/16/17 07:59 07/12/17 14:00 Polyethylene Glycol (Miralax) 17 gm DAILYPRN PRN ORAL Constipation 07/09/17 06:45 08/08/17 06:44 Vancomycin HCl (Vanco rx to dose) 1 ea DAILY PRN MISC . 07/09/17 07:00 08/08/17 06:59 Vancomycin/Sodium Chloride 250 ml @ 166.667 mls/hr Q24H IVPB 07/12/17 12:00 07/17/17 11:59 07/12/17 12:00 Zinc Sulfate (Zinc Sulfate) 220 mg DAILY ORAL 07/09/17 09:00 08/08/17 08:59 07/12/17 08:43 Colby Friend M.D. Jul 12, 2017 14:36
[2017-07-12 16:00] VITALS: BP 102/64
--- NOTE | 2017-07-12 17:35 | Pulmonology Progress Note ---
Assessment/Plan Assessment/Plan ASSESSMENT Severe sepsis Acute on chronic respiratory failure LLL PNA Polymicrobial UTI with Klebsiella MDR and Pseudomonas VDRF/trach Coagulopathy A fib CM with EF 30% Acute renal failure, likely prerenal -resolved Dehydration E/lytes abnormalities: initially hyper K, then hypo K, hypo Mg, Multiple decub ulcers POA : R ear st4, L ear st4, Lt trochanter st4, Left ischial tuberosity st3, sacrococcyx st4, R ischial tuberosity st 3, mid-lumbar area st 2 Chronic sacrococcyx OM Dysphagia, G tube Elevated inflammatory markers Anemia requiring blood transfusion Seizure disorder coagulopathy functional quadriplegia severe protein calorie malnutrition PLAN OF CARE LIGIA status Vent support , pulmonary toilet baseline ABG stable, and titrate settings as needed Fup with CXR on Friday last CXR 07/12 still with LLL consolidation abx ID follows check stool C dif ( prior history, elevated suddenly WBC) Urine cx+ Klebsiella MDR, pseudomonas, blood cx + GPC in clusters 1/4 ( possible contaminant), prior blood cx + Staph epidermidis , Not a surgical candidate per prior surgery evaluation Strict aspiration precautions, GT feeding, monitor tolerance Monitor renal parameters, lytes, ARF likely prerenal 2 to dehydration, resolved monitor lytes, correct as needed monitor renal parameters , avoid nephrotoxics medical management of systolic CHF with BB and CHEN, BP ok continue Amiodarone Monitor HH transfuse prn Wound care as per wound nurse recommendations Seizure precautions heme follows, corrections as per heme suggestion dietary eval re TF and supplements Venous Duplex BLE case discussed and evaluated by supervising physician Subjective Allergies: Coded Allergies: No Known Allergies (Unverified , 03/07/17) Subjective today leucocytosis up -21.4 fever at night -101.8, currently afebrile, tachycardic no signs of respiratory distress on current settings Objective Last 24 Hour Vital Signs Date Time Temp Pulse Resp B/P (MAP) Pulse Ox O2 Delivery O2 Flow Rate FiO2 07/12/17 16:51 94 20 30 07/12/17 16:00 95 07/12/17 16:00 99.2 93 21 102/64 100 Mechanical Ventilator 30 07/12/17 14:53 95 22 30 07/12/17 12:42 96 20 30 07/12/17 12:00 94 07/12/17 12:00 98.5 101 19 100/55 100 Mechanical Ventilator 30 07/12/17 12:00 30 07/12/17 10:44 97 21 30 07/12/17 09:22 100 18 30 07/12/17 08:44 99/67 07/12/17 08:44 106 99/67 07/12/17 08:41 105 07/12/17 08:00 98.0 106 19 99/67 100 Mechanical Ventilator 30 07/12/17 08:00 30 07/12/17 07:04 99 18 30 07/12/17 05:08 102 20 30 07/12/17 04:00 30 07/12/17 04:00 97.4 99 16 113/73 100 Mechanical Ventilator 30 07/12/17 04:00 106 07/12/17 03:03 103 18 30 07/12/17 01:00 119 20 30 07/12/17 00:55 101.8 137 31 113/76 98 Mechanical Ventilator 30 07/12/17 00:50 98.1 07/12/17 00:00 128 07/11/17 23:15 131 27 30 07/11/17 21:13 114 24 30 07/11/17 21:09 102 112/68 07/11/17 20:39 98.2 102 22 112/68 98 Mechanical Ventilator 30 07/11/17 20:00 30 07/11/17 19:37 102 07/11/17 19:06 103 21 30 Intake and Output 07/12/17 07/13/17 19:00 07:00 Intake Total 235.0 ml Balance 235.0 ml IV Total 55.0 ml Tube Feeding 180 ml General Appearance: cachetic, other - chronically ill looking, bed bound, vent dependent male in [facility] Vent AC 500-30-16 HEENT: status post trach - Shiley#8,s ecretions small, yellow, thin Respiratory/Chest: no respiratory distress, rhonchi - on the left Cardiovascular: regular rhythm - ST on tele , tachycardia, other - RUE PICC intact Abdomen: soft, non tender, non distended, other - G tube Extremities: no edema Skin: other - sacral decub st 4 POA, multiple otehr decub ( see plan of care) 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: abnormal gait - bedridden , other - awake, not responsive, spastic LE Musculoskeletal: atrophy - BLE Microbiology Date/Time Source Procedure Growth Status 07/10/17 21:30 Blood Blood Culture - Preliminary Resulted 07/10/17 19:15 Blood Blood Culture - Preliminary NO GROWTH AFTER 24 HOURS Resulted Laboratory Tests 07/12/17 04:50: White Blood Count 21.4#H, Red Blood Count 3.00L, Hemoglobin 9.1L, Hematocrit 27.5L, Mean Corpuscular Volume 92, Mean Corpuscular Hemoglobin 30.3, Mean Corpuscular Hemoglobin Concent 33.1, Red Cell Distribution Width 16.0H, Platelet Count 547H, Mean Platelet Volume 5.1L, Neutrophils (%) (Auto) , Lymphocytes (%) (Auto) , Monocytes (%) (Auto) , Eosinophils (%) (Auto) , Basophils (%) (Auto) , Differential Total Cells Counted 100, Neutrophils % ( Manual) 85H, Lymphocytes % (Manual) 6L, Monocytes % (Manual) 8, Eosinophils % ( Manual) 1, Basophils % (Manual) 0, Band Neutrophils 0, Platelet Estimate IncreasedH, Platelet Morphology Normal, Hypochromasia 1+, Anisocytosis 1+, Sodium Level 139, Potassium Level 3.5, Chloride Level 104, Carbon Dioxide Level 26, Anion Gap 9, Blood Urea Nitrogen 11, Creatinine 0.4L, Estimat Glomerular Filtration Rate > 60, Glucose Level 110H, Calcium Level 8.7, Total Bilirubin 0.3 , Aspartate Amino Transf (AST/SGOT) 18, Alanine Aminotransferase (ALT/SGPT) 19, Alkaline Phosphatase 147H, Pro-B-Type Natriuretic Peptide 5026H, Total Protein 6.2L, Albumin 2.2L, Globulin 4.0, Albumin/Globulin Ratio 0.5L Current Medications Medications (Trade) Dose Ordered Sig/Tameka Route PRN Reason Start Time Stop Time Status Last Admin Dose Admin Acetaminophen (Tylenol) 650 mg Q4H PRN ORAL T>100.5 07/09/17 06:45 08/08/17 06:44 07/11/17 23:46 Albuterol/ Ipratropium (DuoNeb 0.5-3(2.5)mg/3ml) 3 ml Q4H PRN HHN Shortness of Breath 07/09/17 06:45 07/14/17 06:44 Amiodarone HCl (Cordarone) 200 mg DAILY GT 07/09/17 09:00 08/08/17 08:59 07/12/17 08:43 Carvedilol (Coreg) 3.125 mg Q12HR GT 07/09/17 09:00 08/08/17 08:59 07/12/17 08:44 Chlorhexidine Gluconate (Anny-Hex 2%) 1 applic DAILY TOPIC 07/12/17 09:00 08/11/17 08:59 07/12/17 08:44 Dextrose (Dextrose 50%) STAT PRN IV Hypoglycemia 07/09/17 06:45 08/08/17 06:44 Levetiracetam (Keppra) 500 mg Q12HR GT 07/09/17 09:00 08/08/17 08:59 07/12/17 08:44 Lisinopril (Prinivil) 10 mg DAILY GT 07/09/17 09:00 08/08/17 08:59 07/11/17 08:44 Lorazepam (Ativan 2mg/ml 1ml) 2 mg Q2H PRN IV For Anxiety 07/09/17 06:45 07/16/17 06:44 Morphine Sulfate (Morphine Sulfate) 4 mg Q4H PRN IVP Severe Pain (Pain Scale 7-10) 07/09/17 06:45 07/16/17 06:44 07/11/17 22:58 Ondansetron HCl (Zofran) 4 mg Q6H PRN IVP Nausea & Vomiting 07/09/17 06:45 08/08/17 06:44 Piperacillin Sod/ Tazobactam Sod 4.5 gm/Dextrose 110 ml @ 27.5 mls/hr EVERY 8 HOURS IVPB 07/09/17 08:00 07/16/17 07:59 07/12/17 14:00 Polyethylene Glycol (Miralax) 17 gm DAILYPRN PRN ORAL Constipation 07/09/17 06:45 08/08/17 06:44 Vancomycin HCl (Vanco rx to dose) 1 ea DAILY PRN MISC . 07/09/17 07:00 08/08/17 06:59 Vancomycin/Sodium Chloride 250 ml @ 166.667 mls/hr Q24H IVPB 07/12/17 12:00 07/17/17 11:59 07/12/17 12:00 Zinc Sulfate (Zinc Sulfate) 220 mg DAILY ORAL 07/09/17 09:00 08/08/17 08:59 07/12/17 08:43 Diaz ([facility])Chiara NP Jul 12, 2017 17:34
[2017-07-12 20:00] VITALS: BP 109/71
[2017-07-12 20:03] LABS: ANION GAP 13 (5-15); CALCIUM 8.8 mg/dL (8.6-10.2); CARBON DIOXIDE 24 mEQ/L (20-30); CHLORIDE 104 mEQ/L (98-107); CREATININE 0.4 mg/dL (0.7-1.2); GLOMERULAR FILTRATION RATE > 60 mL/min (>60); HEMOLYSIS 13; POTASSIUM 4.8 mEQ/L (3.4-4.9); SODIUM 141 mEQ/L (135-145)
[2017-07-13] VITALS: BP 118/76
[2017-07-13] MEDS: Morphine Sulfate 4mg/ml Inj IVP PRN (01:58)
[2017-07-13 04:00] VITALS: BP 129/76
[2017-07-13 05:12] LABS: BASOPHILS % (AUTO) 0.3 % (0.0-2.0); EOSINOPHILS % (AUTO) 1.4 % (0.0-3.0); LYMPHOCYTES % (AUTO) 11.1 % (20.0-45.0); MEAN CORPUSCULAR HEMOGLOBIN 29.9 PG (27.0-31.0); MEAN CORPUSCULAR HGB CONC 32.1 G/DL (32.0-36.0); MEAN CORPUSCULAR VOLUME 93 FL (80-99); MEAN PLATELET VOLUME 5.2 FL (6.5-10.1); MONOCYTES % (AUTO) 8.6 % (1.0-10.0); NEUTROPHILS % (AUTO) 78.6 % (45.0-75.0); PLATELET COUNT 540 K/UL (150-450); RED BLOOD COUNT 3.56 M/UL (4.70-6.10); RED CELL DISTRIBUTION WIDTH 16.5 % (11.6-14.8); WHITE BLOOD COUNT 17.8 K/UL (4.8-10.8)
[2017-07-13] MEDS: Zosyn 4.5gm q8h **Extended infusion IVPB SCH ×6 (05:37→21:16)
[2017-07-13 08:00] VITALS: BP 114/72
[2017-07-13] MEDS: Amiodarone 200mg tab GT SCH (08:45)
[2017-07-13] MEDS: levETIRAcetam 500mg/5ml Liquid GT SCH ×2 (08:46→21:17)
[2017-07-13] MEDS: Zinc Sulfate 220mg cap ORAL SCH (08:46)
[2017-07-13] MEDS: Lisinopril 20mg tab GT SCH (08:46)
--- NOTE | 2017-07-13 11:03 | Pulmonology Progress Note ---
Assessment/Plan Assessment/Plan ASSESSMENT Severe sepsis Acute on chronic respiratory failure LLL PNA Polymicrobial UTI with Klebsiella MDR and Pseudomonas VDRF/trach Coagulopathy A fib CM with EF 30% Acute renal failure, likely prerenal -resolved Dehydration E/lytes abnormalities: initially hyper K, then hypo K, hypo Mg, Multiple decub ulcers POA : R ear st4, L ear st4, Lt trochanter st4, Left ischial tuberosity st3, sacrococcyx st4, R ischial tuberosity st 3, mid-lumbar area st 2 Chronic sacrococcyx OM Dysphagia, G tube Elevated inflammatory markers Anemia requiring blood transfusion Seizure disorder coagulopathy functional quadriplegia severe protein calorie malnutrition PLAN OF CARE LIGIA status Vent support , pulmonary toilet baseline ABG stable, and titrate settings as needed Fup with CXR on Friday last CXR 07/12 still with LLL consolidation abx ID follows stool C dif negative Urine cx+ Klebsiella MDR, pseudomonas, blood cx + GPC in clusters 1/4 ( possible contaminant), prior blood cx + Staph epidermidis , Not a surgical candidate per prior surgery evaluation Strict aspiration precautions, GT feeding, monitor tolerance Monitor renal parameters, lytes, ARF likely prerenal 2 to dehydration, resolved monitor lytes, correct as needed monitor renal parameters , avoid nephrotoxics medical management of systolic CHF with BB and CHEN, BP ok continue Amiodarone Monitor HH, transfuse prn Wound care as per wound nurse recommendations Seizure precautions heme follows, corrections as per heme suggestion dietary eval re TF and supplements Venous Duplex BLE negative case discussed and evaluated by supervising physician Subjective Allergies: Coded Allergies: No Known Allergies (Unverified , 03/07/17) Subjective leukocytosis trending down, afebrile tachy resolved no signs of respiratory distress on current settings Objective Last 24 Hour Vital Signs Date Time Temp Pulse Resp B/P (MAP) Pulse Ox O2 Delivery O2 Flow Rate FiO2 07/13/17 08:46 114/72 07/13/17 08:46 98 114/72 07/13/17 08:42 95 20 30 07/13/17 08:00 30 07/13/17 08:00 101 07/13/17 08:00 97.5 98 20 114/72 100 Mechanical Ventilator 30 07/13/17 07:14 97 21 30 07/13/17 05:03 88 18 30 07/13/17 04:00 97.6 92 21 129/76 98 Mechanical Ventilator 30 07/13/17 04:00 30 07/13/17 04:00 89 07/13/17 03:09 83 19 30 07/13/17 00:50 90 20 30 07/13/17 00:00 97.7 85 21 118/76 100 Mechanical Ventilator 30 07/13/17 00:00 85 07/13/17 00:00 30 07/12/17 23:04 72 16 30 07/12/17 21:10 89 109/71 07/12/17 20:52 89 16 30 07/12/17 20:00 30 07/12/17 20:00 97.9 89 19 109/71 100 Mechanical Ventilator 30 07/12/17 20:00 87 07/12/17 18:58 87 22 30 07/12/17 16:51 94 20 30 07/12/17 16:00 95 07/12/17 16:00 99.2 93 21 102/64 100 Mechanical Ventilator 30 07/12/17 16:00 30 07/12/17 14:53 95 22 30 07/12/17 12:42 96 20 30 07/12/17 12:00 94 07/12/17 12:00 98.5 101 19 100/55 100 Mechanical Ventilator 30 07/12/17 12:00 30 Objective General Appearance: cachetic, chronically ill looking, bed bound, vent dependent male in NAD; Vent AC 500-30-16 HEENT: status post trach - Shiley#8, secretions small, yellow, thin Respiratory/Chest: no respiratory distress, left side rhonchi Cardiovascular: regular rhythm - SR on tele , RUE PICC intact Abdomen: soft, non tender, non distended, G tube Extremities: no edema Skin: sacral decub st 4 POA, multiple other decub ( see plan of care) 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: abnormal gait - bedridden , awake, not responsive, spastic LE Musculoskeletal: atrophy - BLE Microbiology Date/Time Source Procedure Growth Status 07/10/17 21:30 Blood Blood Culture - Preliminary Staphylococcus Sp Coag Neg Resulted 07/10/17 19:15 Blood Blood Culture - Preliminary NO GROWTH AFTER 48 HOURS Resulted 07/12/17 17:30 Stool Clostridium difficile Toxin Assay - Final Complete 07/12/17 16:30 Catheter Site Catheter Tip Culture - Preliminary NO GROWTH AFTER 24 HOURS Resulted Laboratory Tests 07/12/17 19:22: Sodium Level 141, Potassium Level 4.8, Chloride Level 104, Carbon Dioxide Level 24, Anion Gap 13, Blood Urea Nitrogen 13, Creatinine 0.4L, Estimat Glomerular Filtration Rate > 60, Glucose Level 89, Calcium Level 8.8 07/13/17 03:45: White Blood Count 17.8H, Red Blood Count 3.56L, Hemoglobin 10.6L, Hematocrit 33.2L, Mean Corpuscular Volume 93, Mean Corpuscular Hemoglobin 29.9, Mean Corpuscular Hemoglobin Concent 32.1, Red Cell Distribution Width 16.5H, Platelet Count 540H, Mean Platelet Volume 5.2L, Neutrophils (%) (Auto) 78.6H, Lymphocytes (%) (Auto) 11.1L, Monocytes (%) (Auto) 8.6, Eosinophils (%) (Auto) 1.4, Basophils (%) (Auto) 0.3 Current Medications Medications (Trade) Dose Ordered Sig/Tameka Route PRN Reason Start Time Stop Time Status Last Admin Dose Admin Acetaminophen (Tylenol) 650 mg Q4H PRN ORAL T>100.5 07/09/17 06:45 08/08/17 06:44 07/11/17 23:46 Albuterol/ Ipratropium (DuoNeb 0.5-3(2.5)mg/3ml) 3 ml Q4H PRN HHN Shortness of Breath 07/09/17 06:45 07/14/17 06:44 Amiodarone HCl (Cordarone) 200 mg DAILY GT 07/09/17 09:00 08/08/17 08:59 07/13/17 08:45 Carvedilol (Coreg) 3.125 mg Q12HR GT 07/09/17 09:00 08/08/17 08:59 07/13/17 08:46 Dextrose (Dextrose 50%) STAT PRN IV Hypoglycemia 07/09/17 06:45 08/08/17 06:44 Levetiracetam (Keppra) 500 mg Q12HR GT 07/09/17 09:00 08/08/17 08:59 07/13/17 08:46 Lisinopril (Prinivil) 10 mg DAILY GT 07/09/17 09:00 08/08/17 08:59 07/13/17 08:46 Lorazepam (Ativan 2mg/ml 1ml) 2 mg Q2H PRN IV For Anxiety 07/09/17 06:45 07/16/17 06:44 Morphine Sulfate (Morphine Sulfate) 4 mg Q4H PRN IVP Severe Pain (Pain Scale 7-10) 07/09/17 06:45 07/16/17 06:44 07/13/17 01:58 Ondansetron HCl (Zofran) 4 mg Q6H PRN IVP Nausea & Vomiting 07/09/17 06:45 08/08/17 06:44 Piperacillin Sod/ Tazobactam Sod 4.5 gm/Dextrose 110 ml @ 27.5 mls/hr EVERY 8 HOURS IVPB 07/09/17 08:00 07/16/17 07:59 07/13/17 05:37 Polyethylene Glycol (Miralax) 17 gm DAILYPRN PRN ORAL Constipation 07/09/17 06:45 08/08/17 06:44 Vancomycin HCl (Vanco rx to dose) 1 ea DAILY PRN MISC . 07/09/17 07:00 08/08/17 06:59 Vancomycin/Sodium Chloride 250 ml @ 166.667 mls/hr Q24H IVPB 07/12/17 12:00 07/17/17 11:59 07/12/17 12:00 Zinc Sulfate (Zinc Sulfate) 220 mg DAILY ORAL 07/09/17 09:00 08/08/17 08:59 07/13/17 08:46 Chiara Perales NP ([facility]) Jul 13, 2017 11:03
[2017-07-13] MEDS: Vancomycin 750mg/NS 250ml IVPB SCH (11:45)
[2017-07-13 12:00] VITALS: BP 122/72
[2017-07-13 16:00] VITALS: BP 99/72
[2017-07-13 20:00] VITALS: BP 140/77
--- NOTE | 2017-07-13 23:58 | General Progress Note ---
Assessment/Plan Assessment/Plan 1. Leukocytosis, likely secondary to history of bandemia. --> Wbc count improving, continue to monitor 2. Coagulopathy, will need to be rechecked urgently with an INR and consider administration of vitamin K if needed. 3. Bleeding from right upper extremity PICC line. Closely monitor. 4. Anemia, acute onset. Workup to be obtained as well as occult blood. 5. Hepatitis C positive test, no transaminitis noted. 6. Status post pyuria. Recent Clostridium difficile was negative. 7. Stage IV decubitus ulcerations, growing multiple organisms. Please see ID note. 8. Thrombocytosis. Subjective Date patient seen: Jul 13, 2017 Constitutional: Denies: no symptoms, chills, diaphoresis, fever, malaise, weakness, other HEENT: Denies: no symptoms, eye pain, blurred vision, tearing, double vision, ear pain, ear discharge, nose pain, nose congestion, throat pain, throat swelling, mouth pain, mouth swelling, other Cardiovascular: Denies: no symptoms, chest pain, edema, irregular heart rate, lightheadedness, palpitations, syncope, other Respiratory: Denies: no symptoms, cough, orthopnea, shortness of breath, SOB with excertion, SOB at rest, sputum, stridor, wheezing, other Gastrointestinal/Abdominal: Denies: no symptoms, abdomen distended, abdominal pain, black stools, tarry stools, blood in stool, constipated, diarrhea, difficulty swallowing, nausea, poor appetite, poor fluid intake, rectal bleeding , vomiting, other Genitourinary: Denies: no symptoms, burning, discharge, frequency, flank pain, hematuria, incontinence, pain, urgency, other 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: Denies: no symptoms, anxiety, depressed, emotional problems, headache, numbness, paresthesia, pre-existing deficit, seizure, tingling, tremors, weakness, other Hematologic/Lymphatic: Reports: anemia Allergies: Coded Allergies: No Known Allergies (Unverified , 03/07/17) Subjective No complaints of pain. Afebrile. Leukocytosis improving. Objective Last 24 Hour Vital Signs Date Time Temp Pulse Resp B/P (MAP) Pulse Ox O2 Delivery O2 Flow Rate FiO2 07/13/17 23:19 97 20 30 07/13/17 21:16 92 110/77 07/13/17 21:11 94 19 30 07/13/17 20:00 90 07/13/17 20:00 97.7 92 20 140/77 100 Mechanical Ventilator 30 07/13/17 20:00 30 07/13/17 19:15 91 19 30 07/13/17 17:24 86 18 30 07/13/17 16:00 30 07/13/17 16:00 83 07/13/17 16:00 99.0 101 18 99/72 99 Mechanical Ventilator 07/13/17 15:13 94 20 30 07/13/17 13:30 90 21 30 07/13/17 12:00 30 07/13/17 12:00 98.2 99 22 122/72 99 Mechanical Ventilator 07/13/17 12:00 92 07/13/17 11:23 91 22 30 07/13/17 08:46 114/72 07/13/17 08:46 98 114/72 07/13/17 08:42 95 20 30 07/13/17 08:00 30 07/13/17 08:00 101 07/13/17 08:00 97.5 98 20 114/72 100 Mechanical Ventilator 07/13/17 07:14 97 21 30 07/13/17 05:03 88 18 30 07/13/17 04:00 97.6 92 21 129/76 98 Mechanical Ventilator 07/13/17 04:00 30 07/13/17 04:00 89 07/13/17 03:09 83 19 30 07/13/17 00:50 90 20 30 07/13/17 00:00 97.7 85 21 118/76 100 Mechanical Ventilator 07/13/17 00:00 85 07/13/17 00:00 30 Intake and Output 07/13/17 07/14/17 19:00 07:00 Intake Total 1312.500 ml 317.66 ml Output Total 600 ml Balance 712.500 ml 317.66 ml Intake Free Water 100 ml 30 ml IV Total 442.500 ml 47.66 ml Tube Feeding 720 ml 240 ml Other 50 ml Output Urine Total 600 ml # Bowel Movements 1 Laboratory Tests 07/13/17 03:45: White Blood Count 17.8H, Red Blood Count 3.56L, Hemoglobin 10.6L, Hematocrit 33.2L, Mean Corpuscular Volume 93, Mean Corpuscular Hemoglobin 29.9, Mean Corpuscular Hemoglobin Concent 32.1, Red Cell Distribution Width 16.5H, Platelet Count 540H, Mean Platelet Volume 5.2L, Neutrophils (%) (Auto) 78.6H, Lymphocytes (%) (Auto) 11.1L, Monocytes (%) (Auto) 8.6, Eosinophils (%) (Auto) 1.4, Basophils (%) (Auto) 0.3 Height (Feet): 5 Height (Inches): 8.00 Weight (Pounds): 130 General Appearance: cachetic Neck: other Cardiovascular: normal rate, regular rhythm Respiratory/Chest: no respiratory distress Abdomen: non tender, soft Skin: warm/dry BILL ROSE Jul 13, 2017 23:58
--- NOTE | 2017-07-13 23:58 | General Progress Note ---
Assessment/Plan Assessment/Plan 1. Leukocytosis, likely secondary to history of bandemia. --> WBC remains elevated --> On abx iv 2. Coagulopathy, will need to be rechecked urgently with an INR and consider administration of vitamin K if needed. 3. Bleeding from right upper extremity PICC line. Closely monitor. 4. Anemia, acute onset. Workup to be obtained as well as occult blood. 5. Hepatitis C positive test, no transaminitis noted. 6. Status post pyuria. Recent Clostridium difficile was negative. 7. Stage IV decubitus ulcerations, growing multiple organisms. Please see ID note. 8. Thrombocytosis --> Monitor platelets Subjective Date patient seen: Jul 12, 2017 Constitutional: Denies: no symptoms, chills, diaphoresis, fever, malaise, weakness, other HEENT: Denies: no symptoms, eye pain, blurred vision, tearing, double vision, ear pain, ear discharge, nose pain, nose congestion, throat pain, throat swelling, mouth pain, mouth swelling, other Cardiovascular: Denies: no symptoms, chest pain, edema, irregular heart rate, lightheadedness, palpitations, syncope, other Respiratory: Denies: no symptoms, cough, orthopnea, shortness of breath, SOB with excertion, SOB at rest, sputum, stridor, wheezing, other Gastrointestinal/Abdominal: Denies: no symptoms, abdomen distended, abdominal pain, black stools, tarry stools, blood in stool, constipated, diarrhea, difficulty swallowing, nausea, poor appetite, poor fluid intake, rectal bleeding , vomiting, other Genitourinary: Denies: no symptoms, burning, discharge, frequency, flank pain, hematuria, incontinence, pain, urgency, other Hematologic/Lymphatic: Reports: anemia Allergies: Coded Allergies: No Known Allergies (Unverified , 03/07/17) Subjective Leukocytosis. Afebrile. Nonverbal. No signs of distress. Objective Last 24 Hour Vital Signs Date Time Temp Pulse Resp B/P (MAP) Pulse Ox O2 Delivery O2 Flow Rate FiO2 07/13/17 23:19 97 20 30 07/13/17 21:16 92 110/77 07/13/17 21:11 94 19 30 07/13/17 20:00 90 07/13/17 20:00 97.7 92 20 140/77 100 Mechanical Ventilator 30 07/13/17 20:00 30 07/13/17 19:15 91 19 30 07/13/17 17:24 86 18 30 07/13/17 16:00 30 07/13/17 16:00 83 07/13/17 16:00 99.0 101 18 99/72 99 Mechanical Ventilator 30 07/13/17 15:13 94 20 30 07/13/17 13:30 90 21 30 07/13/17 12:00 30 07/13/17 12:00 98.2 99 22 122/72 99 Mechanical Ventilator 30 07/13/17 12:00 92 07/13/17 11:23 91 22 30 07/13/17 08:46 114/72 07/13/17 08:46 98 114/72 07/13/17 08:42 95 20 30 07/13/17 08:00 30 07/13/17 08:00 101 07/13/17 08:00 97.5 98 20 114/72 100 Mechanical Ventilator 30 07/13/17 07:14 97 21 30 07/13/17 05:03 88 18 30 07/13/17 04:00 97.6 92 21 129/76 98 Mechanical Ventilator 30 07/13/17 04:00 30 07/13/17 04:00 89 07/13/17 03:09 83 19 30 07/13/17 00:50 90 20 30 07/13/17 00:00 97.7 85 21 118/76 100 Mechanical Ventilator 30 07/13/17 00:00 85 07/13/17 00:00 30 07/12/17 23:04 72 16 30 07/12/17 21:10 89 109/71 07/12/17 20:52 89 16 30 07/12/17 20:00 30 07/12/17 20:00 97.9 89 19 109/71 100 Mechanical Ventilator 30 07/12/17 20:00 87 07/12/17 18:58 87 22 30 07/12/17 16:51 94 20 30 07/12/17 16:00 95 07/12/17 16:00 99.2 93 21 102/64 100 Mechanical Ventilator 30 07/12/17 16:00 30 07/12/17 14:53 95 22 30 07/12/17 12:42 96 20 30 07/12/17 12:00 94 07/12/17 12:00 98.5 101 19 100/55 100 Mechanical Ventilator 30 07/12/17 12:00 30 07/12/17 10:44 97 21 30 07/12/17 09:22 100 18 30 07/12/17 08:44 99/67 07/12/17 08:44 106 99/67 07/12/17 08:41 105 07/12/17 08:00 98.0 106 19 99/67 100 Mechanical Ventilator 30 07/12/17 08:00 30 07/12/17 07:04 99 18 30 07/12/17 05:08 102 20 30 07/12/17 04:00 30 07/12/17 04:00 97.4 99 16 113/73 100 Mechanical Ventilator 30 07/12/17 04:00 106 07/12/17 03:03 103 18 30 07/12/17 01:00 119 20 30 07/12/17 00:55 101.8 137 31 113/76 98 Mechanical Ventilator 30 07/12/17 00:50 98.1 Last 24 Hour Vital Signs Date Time Temp Pulse Resp B/P (MAP) Pulse Ox O2 Delivery O2 Flow Rate FiO2 07/13/17 23:19 97 20 30 07/13/17 21:16 92 110/77 07/13/17 21:11 94 19 30 07/13/17 20:00 90 07/13/17 20:00 97.7 92 20 140/77 100 Mechanical Ventilator 30 07/13/17 20:00 30 07/13/17 19:15 91 19 30 07/13/17 17:24 86 18 30 07/13/17 16:00 30 07/13/17 16:00 83 07/13/17 16:00 99.0 101 18 99/72 99 Mechanical Ventilator 30 07/13/17 15:13 94 20 30 07/13/17 13:30 90 21 30 07/13/17 12:00 30 07/13/17 12:00 98.2 99 22 122/72 99 Mechanical Ventilator 30 07/13/17 12:00 92 07/13/17 11:23 91 22 30 07/13/17 08:46 114/72 07/13/17 08:46 98 114/72 07/13/17 08:42 95 20 30 07/13/17 08:00 30 07/13/17 08:00 101 07/13/17 08:00 97.5 98 20 114/72 100 Mechanical Ventilator 30 07/13/17 07:14 97 21 30 07/13/17 05:03 88 18 30 07/13/17 04:00 97.6 92 21 129/76 98 Mechanical Ventilator 30 07/13/17 04:00 30 07/13/17 04:00 89 07/13/17 03:09 83 19 30 07/13/17 00:50 90 20 30 07/13/17 00:00 97.7 85 21 118/76 100 Mechanical Ventilator 30 07/13/17 00:00 85 07/13/17 00:00 30 07/12/17 23:04 72 16 30 07/12/17 21:10 89 109/71 07/12/17 20:52 89 16 30 07/12/17 20:00 30 07/12/17 20:00 97.9 89 19 109/71 100 Mechanical Ventilator 30 07/12/17 20:00 87 07/12/17 18:58 87 22 30 07/12/17 16:51 94 20 30 07/12/17 16:00 95 07/12/17 16:00 99.2 93 21 102/64 100 Mechanical Ventilator 30 07/12/17 16:00 30 07/12/17 14:53 95 22 30 07/12/17 12:42 96 20 30 07/12/17 12:00 94 07/12/17 12:00 98.5 101 19 100/55 100 Mechanical Ventilator 30 07/12/17 12:00 30 07/12/17 10:44 97 21 30 07/12/17 09:22 100 18 30 07/12/17 08:44 99/67 07/12/17 08:44 106 99/67 07/12/17 08:41 105 07/12/17 08:00 98.0 106 19 99/67 100 Mechanical Ventilator 30 07/12/17 08:00 30 07/12/17 07:04 99 18 30 07/12/17 05:08 102 20 30 07/12/17 04:00 30 07/12/17 04:00 97.4 99 16 113/73 100 Mechanical Ventilator 30 07/12/17 04:00 106 07/12/17 03:03 103 18 30 07/12/17 01:00 119 20 30 07/12/17 00:55 101.8 137 31 113/76 98 Mechanical Ventilator 30 07/12/17 00:50 98.1 Last 24 Hour Vital Signs Date Time Temp Pulse Resp B/P (MAP) Pulse Ox O2 Delivery O2 Flow Rate FiO2 07/13/17 23:19 97 20 30 07/13/17 21:16 92 110/77 07/13/17 21:11 94 19 30 07/13/17 20:00 90 07/13/17 20:00 97.7 92 20 140/77 100 Mechanical Ventilator 30 07/13/17 20:00 30 07/13/17 19:15 91 19 30 07/13/17 17:24 86 18 30 07/13/17 16:00 30 07/13/17 16:00 83 07/13/17 16:00 99.0 101 18 99/72 99 Mechanical Ventilator 07/13/17 15:13 94 20 30 07/13/17 13:30 90 21 30 07/13/17 12:00 30 07/13/17 12:00 98.2 99 22 122/72 99 Mechanical Ventilator 07/13/17 12:00 92 07/13/17 11:23 91 22 30 07/13/17 08:46 114/72 07/13/17 08:46 98 114/72 07/13/17 08:42 95 20 30 07/13/17 08:00 30 07/13/17 08:00 101 07/13/17 08:00 97.5 98 20 114/72 100 Mechanical Ventilator 07/13/17 07:14 97 21 30 07/13/17 05:03 88 18 30 07/13/17 04:00 97.6 92 21 129/76 98 Mechanical Ventilator 30 07/13/17 04:00 30 07/13/17 04:00 89 07/13/17 03:09 83 19 30 07/13/17 00:50 90 20 30 07/13/17 00:00 97.7 85 21 118/76 100 Mechanical Ventilator 07/13/17 00:00 85 07/13/17 00:00 30 Intake and Output 07/13/17 07/14/17 19:00 07:00 Intake Total 1312.500 ml 317.66 ml Output Total 600 ml Balance 712.500 ml 317.66 ml Intake Free Water 100 ml 30 ml IV Total 442.500 ml 47.66 ml Tube Feeding 720 ml 240 ml Other 50 ml Output Urine Total 600 ml # Bowel Movements 1 Labs Test 07/12/17 04:50 07/12/17 19:22 07/13/17 03:45 White Blood Count 21.4 K/UL (4.8-10.8) 17.8 K/UL (4.8-10.8) Red Blood Count 3.00 M/UL (4.70-6.10) 3.56 M/UL (4.70-6.10) Hemoglobin 9.1 G/DL (14.2-18.0) 10.6 G/DL (14.2-18.0) Hematocrit 27.5 % (42.0-52.0) 33.2 % (42.0-52.0) Mean Corpuscular Volume 92 FL (80-99) 93 FL (80-99) Mean Corpuscular Hemoglobin 30.3 PG (27.0-31.0) 29.9 PG (27.0-31.0) Mean Corpuscular Hemoglobin Concent 33.1 G/DL (32.0-36.0) 32.1 G/DL (32.0-36.0) Red Cell Distribution Width 16.0 % (11.6-14.8) 16.5 % (11.6-14.8) Platelet Count 547 K/UL (150-450) 540 K/UL (150-450) Mean Platelet Volume 5.1 FL (6.5-10.1) 5.2 FL (6.5-10.1) Neutrophils (%) (Auto) % (45.0-75.0) 78.6 % (45.0-75.0) Lymphocytes (%) (Auto) % (20.0-45.0) 11.1 % (20.0-45.0) Monocytes (%) (Auto) % (1.0-10.0) 8.6 % (1.0-10.0) Eosinophils (%) (Auto) % (0.0-3.0) 1.4 % (0.0-3.0) Basophils (%) (Auto) % (0.0-2.0) 0.3 % (0.0-2.0) Differential Total Cells Counted 100 Neutrophils % (Manual) 85 % (45-75) Lymphocytes % (Manual) 6 % (20-45) Monocytes % (Manual) 8 % (1-10) Eosinophils % (Manual) 1 % (0-3) Basophils % (Manual) 0 % (0-2) Band Neutrophils 0 % (0-8) Platelet Estimate Increased Platelet Morphology Normal Hypochromasia 1+ Anisocytosis 1+ Sodium Level 139 mEQ/L (135-145) 141 mEQ/L (135-145) Potassium Level 3.5 mEQ/L (3.4-4.9) 4.8 mEQ/L (3.4-4.9) Chloride Level 104 mEQ/L (98-107) 104 mEQ/L (98-107) Carbon Dioxide Level 26 mEQ/L (20-30) 24 mEQ/L (20-30) Anion Gap 9 (5-15) 13 (5-15) Blood Urea Nitrogen 11 mg/dL (7-23) 13 mg/dL (7-23) Creatinine 0.4 mg/dL (0.7-1.2) 0.4 mg/dL (0.7-1.2) Estimat Glomerular Filtration Rate > 60 mL/min (>60) > 60 mL/min (>60) Glucose Level 110 mg/dL (74-106) 89 mg/dL (74-106) Calcium Level 8.7 mg/dL (8.6-10.2) 8.8 mg/dL (8.6-10.2) Total Bilirubin 0.3 mg/dL (0.0-1.2) Aspartate Amino Transf (AST/SGOT) 18 U/L (5-40) Alanine Aminotransferase (ALT/SGPT) 19 U/L (3-41) Alkaline Phosphatase 147 U/L (40-129) Pro-B-Type Natriuretic Peptide 5026 pg/mL (0-125) Total Protein 6.2 g/dL (6.6-8.7) Albumin 2.2 g/dL (3.5-5.2) Globulin 4.0 g/dL Albumin/Globulin Ratio 0.5 (1.0-2.7) Laboratory Tests 07/13/17 03:45: White Blood Count 17.8H, Red Blood Count 3.56L, Hemoglobin 10.6L, Hematocrit 33.2L, Mean Corpuscular Volume 93, Mean Corpuscular Hemoglobin 29.9, Mean Corpuscular Hemoglobin Concent 32.1, Red Cell Distribution Width 16.5H, Platelet Count 540H, Mean Platelet Volume 5.2L, Neutrophils (%) (Auto) 78.6H, Lymphocytes (%) (Auto) 11.1L, Monocytes (%) (Auto) 8.6, Eosinophils (%) (Auto) 1.4, Basophils (%) (Auto) 0.3 Height (Feet): 5 Height (Inches): 8.00 Weight (Pounds): 130 Respiratory/Chest: no respiratory distress Abdomen: non tender, soft Skin: other BILL ROSE Jul 13, 2017 23:58
[2017-07-14] VITALS: BP 114/73
[2017-07-14 04:00] VITALS: BP 147/83
[2017-07-14] MEDS: Zosyn 4.5gm q8h **Extended infusion IVPB SCH ×6 (05:07→21:02)
[2017-07-14 05:09] LABS: BASOPHILS % (AUTO) 0.7 % (0.0-2.0); EOSINOPHILS % (AUTO) 2.5 % (0.0-3.0); LYMPHOCYTES % (AUTO) 12.6 % (20.0-45.0); MEAN CORPUSCULAR HEMOGLOBIN 29.7 PG (27.0-31.0); MEAN CORPUSCULAR HGB CONC 32.1 G/DL (32.0-36.0); MEAN CORPUSCULAR VOLUME 92 FL (80-99); MEAN PLATELET VOLUME 5.1 FL (6.5-10.1); NEUTROPHILS % (AUTO) 76.2 % (45.0-75.0); PLATELET COUNT 480 K/UL (150-450); RED CELL DISTRIBUTION WIDTH 16.1 % (11.6-14.8); WHITE BLOOD COUNT 12.9 K/UL (4.8-10.8)
[2017-07-14 05:32] LABS: ANION GAP 11 (5-15); CALCIUM 8.9 mg/dL (8.6-10.2); CARBON DIOXIDE 24 mEQ/L (20-30); CHLORIDE 106 mEQ/L (98-107); CREATININE 0.4 mg/dL (0.7-1.2); GLOMERULAR FILTRATION RATE > 60 mL/min (>60); HEMOLYSIS 21; POTASSIUM 4.3 mEQ/L (3.4-4.9); SODIUM 141 mEQ/L (135-145)
[2017-07-14 07:57] VITALS: BP 133/79
[2017-07-14] MEDS: Amiodarone 200mg tab GT SCH (09:24)
[2017-07-14] MEDS: levETIRAcetam 500mg/5ml Liquid GT SCH ×2 (09:24→20:56)
[2017-07-14] MEDS: Lisinopril 20mg tab GT SCH (09:25)
[2017-07-14] MEDS: Zinc Sulfate 220mg cap ORAL SCH (09:26)
--- NOTE | 2017-07-14 10:53 | Wound Care Consultation ---
Wound Assessment Wound Assessment #1: Wound Number: 1 Wound Present on Admission: Yes New Wound: No Status Change of Wound: Yes Wound Location Body Site Modif: right, medial Wound Location Body Site: knee Wound Type: other - resurfaced scar tissue appearing stage 2 Francis Test: Does not Francis Pressure Ulcer Stage: II Wound Thickness: Partial Thickness Wound Length: 1.0 Wound Width: 1.0 Wound Depth: 0.1 Percent of Wound Marmora/Red: 100 Wound Drainage Description: Serosanguineous Wound Drainage Amount: Scant Wound Drainage Odor: None/Absent Tissue Surrounding Wound: Macerated Wound General Appearance: Reddened Wound Assessment #2: Wound Number: 2 Wound Present on Admission: Yes New Wound: No Status Change of Wound: No Wound Location Body Site Modif: right Wound Location Body Site: heel Wound Type: pressure ulcer Francis Test: Does not Francis Pressure Ulcer Stage: deep tissue injury Wound Thickness: Full Thickness Wound Length: 1.5 Wound Width: 1.5 Wound Depth: UTD Percent of Wound Marmora/Red: 50 Percent of Wound Purple/Maroon: 50 - noted 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 Wound Drainage Amount: None Wound Drainage Odor: None/Absent Tissue Surrounding Wound: Intact Wound Comment #1 right medial mid knee scar tissue resurfaced stage II. #2 right heel dti noted alumni relations officer in color- good progress. CONTINUE CURRENT PLAN OF CARE FOR WOUNDS. - Local wound care as ordered. -Apply low air loss p200 mattress for wound and skin management. -Turn and reposition. -Avoid shear and friction. -Keep clean and dry. -Optimize nutrition. -Offload affected pressure sites. -Offload heels and feet. -Apply heel protectors. -Assess and notify MD for any further changes noted to skin. AMALIA NIEVES Jul 14, 2017 10:53
--- NOTE | 2017-07-14 11:18 | Pulmonology Progress Note ---
Assessment/Plan Problems: (1) Sepsis (2) Atrial fibrillation (3) Feeding by G-tube (4) EF of 30 Respiratory: monitor respiratory rate Cardiac: start pressors, continue pressors, d/c mobile application tester Renal: F/U I&O, keep IV fluid Gastrointestinal: hold feedings Endocrine: check TSH, check HgA1C, continue sliding scale insulin Hematologic: monitor H/H, transfuse if hgb<8.5 Neurologic: PRN Morphine, keep patient comfortable Affect: PRN ativan Prophylaxis: Protonix, Heparin Notes Reviewed: registry rn, cardio Discussed with: nurses, consultants, director of casework department Subjective Constitutional: Reports: no symptoms HEENT: Repors: no symptoms Respiratory: Reports: no symptoms Allergies: Coded Allergies: No Known Allergies (Unverified , 03/07/17) Objective Last 24 Hour Vital Signs Date Time Temp Pulse Resp B/P (MAP) Pulse Ox O2 Delivery O2 Flow Rate FiO2 07/14/17 10:35 89 23 30 07/14/17 09:25 133/79 07/14/17 09:25 86 133/79 07/14/17 09:13 86 23 30 07/14/17 08:00 30 07/14/17 08:00 92 07/14/17 07:57 98.8 93 20 133/79 100 Mechanical Ventilator 07/14/17 07:03 81 20 30 07/14/17 05:14 88 20 30 07/14/17 04:00 97.4 73 18 147/83 100 Mechanical Ventilator 07/14/17 04:00 89 07/14/17 04:00 30 07/14/17 03:19 90 16 30 07/14/17 01:20 91 24 30 07/14/17 00:00 30 07/14/17 00:00 95 07/14/17 00:00 98.9 92 22 114/73 100 Mechanical Ventilator 07/13/17 23:19 97 20 30 07/13/17 21:16 92 110/77 07/13/17 21:11 94 19 30 07/13/17 20:00 90 07/13/17 20:00 97.7 92 20 140/77 100 Mechanical Ventilator 30 07/13/17 20:00 30 07/13/17 19:15 91 19 30 07/13/17 17:24 86 18 30 07/13/17 16:00 30 07/13/17 16:00 83 07/13/17 16:00 99.0 101 18 99/72 99 Mechanical Ventilator 30 07/13/17 15:13 94 20 30 07/13/17 13:30 90 21 30 07/13/17 12:00 30 07/13/17 12:00 98.2 99 22 122/72 99 Mechanical Ventilator 30 07/13/17 12:00 92 07/13/17 11:23 91 22 30 Intake and Output 07/14/17 07/15/17 19:00 07:00 Intake Total 421.87 ml Balance 421.87 ml Intake Free Water 100 ml IV Total 81.87 ml Tube Feeding 240 ml General Appearance: WD/WN HEENT: normocephalic, atraumatic Respiratory/Chest: chest wall non-tender, lungs clear Cardiovascular: normal peripheral pulses, normal rate Abdomen: normal bowel sounds, no organomegaly Genitourinary: normal external genitalia Extremities: no clubbing Skin: no rash 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: 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 refrigeration engineer 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 normal Microbiology Date/Time Source Procedure Growth Status 07/12/17 16:30 Blood Blood Culture - Preliminary NO GROWTH AFTER 24 HOURS Resulted 07/12/17 17:30 Stool Clostridium difficile Toxin Assay - Final Complete 07/12/17 16:30 Catheter Site Catheter Tip Culture - Preliminary NO GROWTH AFTER 48 HOURS Resulted Laboratory Tests 07/14/17 03:40: White Blood Count 12.9H, Red Blood Count 2.80L, Hemoglobin 8.3L, Hematocrit 25.9L, Mean Corpuscular Volume 92, Mean Corpuscular Hemoglobin 29.7, Mean Corpuscular Hemoglobin Concent 32.1, Red Cell Distribution Width 16.1H, Platelet Count 480H, Mean Platelet Volume 5.1L, Neutrophils (%) (Auto) 76.2H, Lymphocytes (%) (Auto) 12.6L, Monocytes (%) (Auto) 8.0, Eosinophils (%) (Auto) 2.5, Basophils (%) (Auto) 0.7, Sodium Level 141, Potassium Level 4.3, Chloride Level 106, Carbon Dioxide Level 24, Anion Gap 11, Blood Urea Nitrogen 13, Creatinine 0.4L, Estimat Glomerular Filtration Rate > 60, Glucose Level 103, Calcium Level 8.9 Current Medications Medications (Trade) Dose Ordered Sig/Tameka Route PRN Reason Start Time Stop Time Status Last Admin Dose Admin Acetaminophen (Tylenol) 650 mg Q4H PRN ORAL T>100.5 07/09/17 06:45 08/08/17 06:44 07/11/17 23:46 Amiodarone HCl (Cordarone) 200 mg DAILY GT 07/09/17 09:00 08/08/17 08:59 07/14/17 09:24 Carvedilol (Coreg) 3.125 mg Q12HR GT 07/09/17 09:00 08/08/17 08:59 07/14/17 09:25 Dextrose (Dextrose 50%) STAT PRN IV Hypoglycemia 07/09/17 06:45 08/08/17 06:44 Levetiracetam (Keppra) 500 mg Q12HR GT 07/09/17 09:00 08/08/17 08:59 07/14/17 09:24 Lisinopril (Prinivil) 10 mg DAILY GT 07/09/17 09:00 08/08/17 08:59 07/14/17 09:25 Lorazepam (Ativan 2mg/ml 1ml) 2 mg Q2H PRN IV For Anxiety 07/09/17 06:45 07/16/17 06:44 Morphine Sulfate (Morphine Sulfate) 4 mg Q4H PRN IVP Severe Pain (Pain Scale 7-10) 07/09/17 06:45 07/16/17 06:44 07/13/17 01:58 Ondansetron HCl (Zofran) 4 mg Q6H PRN IVP Nausea & Vomiting 07/09/17 06:45 08/08/17 06:44 Piperacillin Sod/ Tazobactam Sod 4.5 gm/Dextrose 110 ml @ 27.5 mls/hr EVERY 8 HOURS IVPB 07/09/17 08:00 07/16/17 07:59 07/14/17 05:07 Polyethylene Glycol (Miralax) 17 gm DAILYPRN PRN ORAL Constipation 07/09/17 06:45 08/08/17 06:44 Vancomycin HCl (Vanco rx to dose) 1 ea DAILY PRN MISC . 07/09/17 07:00 08/08/17 06:59 Vancomycin/Sodium Chloride 250 ml @ 166.667 mls/hr Q24H IVPB 07/12/17 12:00 07/17/17 11:59 07/13/17 11:45 Zinc Sulfate (Zinc Sulfate) 220 mg DAILY ORAL 07/09/17 09:00 08/08/17 08:59 07/14/17 09:26 ODETTE SMILEY Jul 14, 2017 11:18
[2017-07-14 12:00] VITALS: BP 143/91
[2017-07-14] MEDS: Vancomycin 750mg/NS 250ml IVPB SCH (12:30)
--- NOTE | 2017-07-14 12:37 | Diagnostic Imaging Report ---
Indication: Dyspnea Comparison: 07/12/17 A single view chest radiograph was obtained. Findings: Heart size is normal. Tracheostomy is noted as well as pacemaker. The interstitium appears slightly prominent, nonspecific in nature. Findings appear unchanged. PICC line was removed. Impression: No acute disease appreciated
[2017-07-14 16:00] VITALS: BP 122/73
[2017-07-14 19:37] VITALS: BP 116/70
--- NOTE | 2017-07-14 19:56 | General Progress Note ---
Assessment/Plan Status: unchanged Assessment/Plan 1. Leukocytosis, likely secondary to history of bandemia. --> Wbc count improving steadily, continue to monitor 2. Coagulopathy, will need to be rechecked urgently with an INR and consider administration of vitamin K if needed. 3. Bleeding from right upper extremity PICC line. Closely monitor. 4. Anemia, acute onset. Workup to be obtained as well as occult blood. --> Blood transfusion not required unless symptomatic or hgb<7.5 5. Hepatitis C positive test, no transaminitis noted. 6. Status post pyuria. Recent Clostridium difficile was negative. 7. Stage IV decubitus ulcerations, growing multiple organisms. Please see ID note. 8. Thrombocytosis, multifactorial Subjective Date patient seen: Jul 14, 2017 Constitutional: Denies: no symptoms, chills, diaphoresis, fever, malaise, weakness, other HEENT: Denies: no symptoms, eye pain, blurred vision, tearing, double vision, ear pain, ear discharge, nose pain, nose congestion, throat pain, throat swelling, mouth pain, mouth swelling, other Cardiovascular: Denies: no symptoms, chest pain, edema, irregular heart rate, lightheadedness, palpitations, syncope, other Respiratory: Denies: no symptoms, cough, orthopnea, shortness of breath, SOB with excertion, SOB at rest, sputum, stridor, wheezing, other Gastrointestinal/Abdominal: Denies: no symptoms, abdomen distended, abdominal pain, black stools, tarry stools, blood in stool, constipated, diarrhea, difficulty swallowing, nausea, poor appetite, poor fluid intake, rectal bleeding , vomiting, other Genitourinary: Denies: no symptoms, burning, discharge, frequency, flank pain, hematuria, incontinence, pain, urgency, other Hematologic/Lymphatic: Reports: anemia Allergies: Coded Allergies: No Known Allergies (Unverified , 03/07/17) Subjective No complaints of pain. Afebrile. Leukocytosis continues to improve. No acute distress. Objective Last 24 Hour Vital Signs Date Time Temp Pulse Resp B/P (MAP) Pulse Ox O2 Delivery O2 Flow Rate FiO2 07/14/17 19:37 98.1 87 22 116/70 100 Mechanical Ventilator 30 07/14/17 19:07 85 18 30 07/14/17 16:52 77 19 30 07/14/17 16:00 97.3 82 20 122/73 100 Mechanical Ventilator 30 07/14/17 16:00 30 07/14/17 16:00 78 07/14/17 15:21 82 19 30 07/14/17 13:19 76 19 30 07/14/17 12:00 98.2 80 19 143/91 100 Mechanical Ventilator 30 07/14/17 12:00 30 07/14/17 12:00 65 07/14/17 10:35 89 23 30 07/14/17 09:25 133/79 07/14/17 09:25 86 133/79 07/14/17 09:13 86 23 30 07/14/17 08:00 30 07/14/17 08:00 92 07/14/17 07:57 98.8 93 20 133/79 100 Mechanical Ventilator 30 07/14/17 07:03 81 20 30 07/14/17 05:14 88 20 30 07/14/17 04:00 97.4 73 18 147/83 100 Mechanical Ventilator 30 07/14/17 04:00 89 07/14/17 04:00 30 07/14/17 03:19 90 16 30 07/14/17 01:20 91 24 30 07/14/17 00:00 30 07/14/17 00:00 95 07/14/17 00:00 98.9 92 22 114/73 100 Mechanical Ventilator 30 07/13/17 23:19 97 20 30 07/13/17 21:16 92 110/77 07/13/17 21:11 94 19 30 07/13/17 20:00 90 07/13/17 20:00 97.7 92 20 140/77 100 Mechanical Ventilator 30 07/13/17 20:00 30 Intake and Output 07/14/17 07/15/17 19:00 07:00 Intake Total 1494.364 ml 27.29 ml Output Total 901 ml Balance 593.364 ml 27.29 ml Intake Free Water 250 ml IV Total 524.364 ml 27.29 ml Tube Feeding 720 ml Output Urine Total 900 ml Stool Total 1 ml Labs Test 07/13/17 03:45 07/14/17 03:40 White Blood Count 17.8 K/UL (4.8-10.8) 12.9 K/UL (4.8-10.8) Red Blood Count 3.56 M/UL (4.70-6.10) 2.80 M/UL (4.70-6.10) Hemoglobin 10.6 G/DL (14.2-18.0) 8.3 G/DL (14.2-18.0) Hematocrit 33.2 % (42.0-52.0) 25.9 % (42.0-52.0) Mean Corpuscular Volume 93 FL (80-99) 92 FL (80-99) Mean Corpuscular Hemoglobin 29.9 PG (27.0-31.0) 29.7 PG (27.0-31.0) Mean Corpuscular Hemoglobin Concent 32.1 G/DL (32.0-36.0) 32.1 G/DL (32.0-36.0) Red Cell Distribution Width 16.5 % (11.6-14.8) 16.1 % (11.6-14.8) Platelet Count 540 K/UL (150-450) 480 K/UL (150-450) Mean Platelet Volume 5.2 FL (6.5-10.1) 5.1 FL (6.5-10.1) Neutrophils (%) (Auto) 78.6 % (45.0-75.0) 76.2 % (45.0-75.0) Lymphocytes (%) (Auto) 11.1 % (20.0-45.0) 12.6 % (20.0-45.0) Monocytes (%) (Auto) 8.6 % (1.0-10.0) 8.0 % (1.0-10.0) Eosinophils (%) (Auto) 1.4 % (0.0-3.0) 2.5 % (0.0-3.0) Basophils (%) (Auto) 0.3 % (0.0-2.0) 0.7 % (0.0-2.0) Sodium Level 141 mEQ/L (135-145) Potassium Level 4.3 mEQ/L (3.4-4.9) Chloride Level 106 mEQ/L (98-107) Carbon Dioxide Level 24 mEQ/L (20-30) Anion Gap 11 (5-15) Blood Urea Nitrogen 13 mg/dL (7-23) Creatinine 0.4 mg/dL (0.7-1.2) Estimat Glomerular Filtration Rate > 60 mL/min (>60) Glucose Level 103 mg/dL (74-106) Calcium Level 8.9 mg/dL (8.6-10.2) Laboratory Tests 07/14/17 03:40: White Blood Count 12.9H, Red Blood Count 2.80L, Hemoglobin 8.3L, Hematocrit 25.9L, Mean Corpuscular Volume 92, Mean Corpuscular Hemoglobin 29.7, Mean Corpuscular Hemoglobin Concent 32.1, Red Cell Distribution Width 16.1H, Platelet Count 480H, Mean Platelet Volume 5.1L, Neutrophils (%) (Auto) 76.2H, Lymphocytes (%) (Auto) 12.6L, Monocytes (%) (Auto) 8.0, Eosinophils (%) (Auto) 2.5, Basophils (%) (Auto) 0.7, Sodium Level 141, Potassium Level 4.3, Chloride Level 106, Carbon Dioxide Level 24, Anion Gap 11, Blood Urea Nitrogen 13, Creatinine 0.4L, Estimat Glomerular Filtration Rate > 60, Glucose Level 103, Calcium Level 8.9 Height (Feet): 5 Height (Inches): 8.00 Weight (Pounds): 130 General Appearance: cachetic Cardiovascular: normal rate, regular rhythm Respiratory/Chest: chest wall non-tender, lungs clear, no respiratory distress Abdomen: non tender, soft Neurologic: spider assembler 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 normal BILL ROSE Jul 14, 2017 19:56
--- NOTE | 2017-07-14 23:33 | Infectious Diseases Prog Note ---
Assessment/Plan Assessment/Plan ASSESSMENT: LLL pneumonia and coag neg staph RUE picc associated bacteremia. Had defervesced with declining WBC now fevered again early this morning and WBC up to >20. no longer candidate for attempt at limb salvage as repeat 07/10 blood cx drawn from picc is + at 36 hrs and peripheral stick ngtd. 1) Sepsis--not on pressors, hypotension resolved s/p fluid bolus. Likely secondary to hypovolemia secondary to dehydration, LLL pneumonia, and possible sepsis from chronic sacral wound. appreciate wound care eval; his sacrococcygeal ulcer does have some of the foul smell it did in early May2017 s /p Dakin's. prior surgical eval. 2) LLL pneumonia 3) Coag neg staph RUE PICC associated bacteremia--repeat blood cx from 07/10 from picc again positive, neg from peripheral stick, and the catheter has been bleeding 4) MDR Klebsiella and zosyn resistant Pseudomonas bacteriuria w/o pyuria--from condom cath. no indication to treat at this time. 5) Dehydration--based on exam, serum Na, BUn/Cr ratio 6) Stage IV sacral decubitus ulcers --recent wcx: MDR ACB, C albicans, and KPC (sensitive only to colistin) during early May2017, his sacral decubitus ulcer probes to bone. has been evaluated by surgery and not considered surgical candidate, and he's received close care from the wound team, previously receiving Dakin's and chemical debridement of foul smelling fibrinous exudate centrally 7) Chronic sacrococcygeal osteomyelitis. see #4 above. could not obtain MRI b/c on and has AICD CT with contrast--some sacral/coccygeal erosion, but no abscess. no profound progression. 8) Leukocytosis with bandemia, recurred 7) Fever, recurred early this morning 9) Elevated alk phos, stable s/p u/s 06/13 with some GB wall thickening, no definite stone, acute acalculous cholecystitis not entirely excluded s/p U/s last admission negative for acute process secondary to chronic sacral bone osteolysis CT a/p w/o evidence of acute cholecystitis 10) HCV Ab+, no transaminitis currently. HIV negative on last admission 11) s/p diarrhea. recent C diff on last admission negative 12) h/o recurrent HCAP/VAP--MDR-ACB, KPC, Providencia, XDR Pseudomonas. No bacteremia documented in 2017. s/p treatment s/p (06/17 s/p vancomycin, cefepime D#7) (06/15 s/p amikacin D#4) (06/14 s/p flagyl D#2) (06/12 s/p ertapenem x1) (05/27 s/p tigecycline and colistin D#14/14, meropenem D#10/10) (05/15 s/p IV vancomycin and zosyn D#5) s/p D#7 meroepenem and inhaled colistin (03/13 s/p vancomycin and zosyn D#5) 13) elevated ESR (117), low elevation of CRP--at last admission 14) reactive thrombocytosis 15) h/o UTI (06/25/17 s/p IV vanc/zosyn D#3) 16. bleeding at RUE picc. 17. MDR Psa and Klebsiella x2 in urine. u/a was not consistent with acute UTI, so suspect he has bacteriuria only. and he is responding on current therapy despite these organisms being resistant to pip/tazo. 18. Elevated inflammatory markers: ESR 140mm/hr, CRP 14.3 mg/dL Chronic anoxic encephalopathy--mentation at baseline -h/o cardiac arrest Borderline hypernatremia hypokalemia Cachexia with elevated CEA, normal PSA Acute on chronic anemia Sinus tachycardia respiratory alkalosis Chronic VDRF, s/p trach and PEG Cardiomyopathy s/p defibrillatory placement Paroxysmal Afib Skilled Nursing resident MDRO colonized NKDA hypokalemia AM cortisol negative for adrenal insufficiency Full code? PLAN: --Continue empiric IV zosyn and vancomycin D#6 / for LLL HCAP and coag neg staph RUE picc associated bacteremia. --PICC line tip for culture --RUE u/s to r/o associated clot --f/u sputum cx --surveillance blood cx now, one from picc, one from peripheral --Monitor CXR --monitor CBC --monitor temp curve --Ventilatory support, tracheostomy care, aspiration precautions. --s/p Wound care consult Subjective Allergies: Coded Allergies: No Known Allergies (Unverified , 03/07/17) Subjective non verbal Objective Vital Signs Last 24 Hour Vital Signs Date Time Temp Pulse Resp B/P (MAP) Pulse Ox O2 Delivery O2 Flow Rate FiO2 07/14/17 22:52 85 23 30 07/14/17 21:08 87 23 30 07/14/17 20:56 87 116/70 07/14/17 20:00 88 07/14/17 20:00 30 07/14/17 19:37 98.1 87 22 116/70 100 Mechanical Ventilator 30 07/14/17 19:07 85 18 30 07/14/17 16:52 77 19 30 07/14/17 16:00 97.3 82 20 122/73 100 Mechanical Ventilator 30 07/14/17 16:00 30 07/14/17 16:00 78 07/14/17 15:21 82 19 30 07/14/17 13:19 76 19 30 07/14/17 12:00 98.2 80 19 143/91 100 Mechanical Ventilator 30 07/14/17 12:00 30 07/14/17 12:00 65 07/14/17 10:35 89 23 30 07/14/17 09:25 133/79 07/14/17 09:25 86 133/79 07/14/17 09:13 86 23 30 07/14/17 08:00 30 07/14/17 08:00 92 07/14/17 07:57 98.8 93 20 133/79 100 Mechanical Ventilator 30 07/14/17 07:03 81 20 30 07/14/17 05:14 88 20 30 07/14/17 04:00 97.4 73 18 147/83 100 Mechanical Ventilator 30 07/14/17 04:00 89 07/14/17 04:00 30 07/14/17 03:19 90 16 30 07/14/17 01:20 91 24 30 07/14/17 00:00 30 07/14/17 00:00 95 07/14/17 00:00 98.9 92 22 114/73 100 Mechanical Ventilator 30 Height (Feet): 5 Height (Inches): 8.00 Weight (Pounds): 130 HEENT: atraumatic Respiratory/Chest: normal breath sounds Cardiovascular: regularly irregular Abdomen: non distended Microbiology Date/Time Source Procedure Growth Status 07/12/17 16:30 Blood Blood Culture - Preliminary NO GROWTH AFTER 24 HOURS Resulted 07/12/17 17:30 Stool Clostridium difficile Toxin Assay - Final Complete 07/12/17 16:30 Catheter Site Catheter Tip Culture - Preliminary NO GROWTH AFTER 48 HOURS Resulted Laboratory Tests Test 07/14/17 03:40 White Blood Count 12.9 K/UL (4.8-10.8) H Red Blood Count 2.80 M/UL (4.70-6.10) L Hemoglobin 8.3 G/DL (14.2-18.0) L Hematocrit 25.9 % (42.0-52.0) L Mean Corpuscular Volume 92 FL (80-99) Mean Corpuscular Hemoglobin 29.7 PG (27.0-31.0) Mean Corpuscular Hemoglobin Concent 32.1 G/DL (32.0-36.0) Red Cell Distribution Width 16.1 % (11.6-14.8) H Platelet Count 480 K/UL (150-450) H Mean Platelet Volume 5.1 FL (6.5-10.1) L Neutrophils (%) (Auto) 76.2 % (45.0-75.0) H Lymphocytes (%) (Auto) 12.6 % (20.0-45.0) L Monocytes (%) (Auto) 8.0 % (1.0-10.0) Eosinophils (%) (Auto) 2.5 % (0.0-3.0) Basophils (%) (Auto) 0.7 % (0.0-2.0) Sodium Level 141 mEQ/L (135-145) Potassium Level 4.3 mEQ/L (3.4-4.9) Chloride Level 106 mEQ/L (98-107) Carbon Dioxide Level 24 mEQ/L (20-30) Anion Gap 11 (5-15) Blood Urea Nitrogen 13 mg/dL (7-23) Creatinine 0.4 mg/dL (0.7-1.2) L Estimat Glomerular Filtration Rate > 60 mL/min (>60) Glucose Level 103 mg/dL (74-106) Calcium Level 8.9 mg/dL (8.6-10.2) Current Medications Medications (Trade) Dose Ordered Sig/Tameka Route PRN Reason Start Time Stop Time Status Last Admin Dose Admin Acetaminophen (Tylenol) 650 mg Q4H PRN ORAL T>100.5 07/09/17 06:45 08/08/17 06:44 07/11/17 23:46 Amiodarone HCl (Cordarone) 200 mg DAILY GT 07/09/17 09:00 08/08/17 08:59 07/14/17 09:24 Carvedilol (Coreg) 3.125 mg Q12HR GT 07/09/17 09:00 08/08/17 08:59 07/14/17 20:56 Dextrose (Dextrose 50%) STAT PRN IV Hypoglycemia 07/09/17 06:45 08/08/17 06:44 Levetiracetam (Keppra) 500 mg Q12HR GT 07/09/17 09:00 08/08/17 08:59 07/14/17 20:56 Lisinopril (Prinivil) 10 mg DAILY GT 07/09/17 09:00 08/08/17 08:59 07/14/17 09:25 Lorazepam (Ativan 2mg/ml 1ml) 2 mg Q2H PRN IV For Anxiety 07/09/17 06:45 07/16/17 06:44 Morphine Sulfate (Morphine Sulfate) 4 mg Q4H PRN IVP Severe Pain (Pain Scale 7-10) 07/09/17 06:45 07/16/17 06:44 07/13/17 01:58 Ondansetron HCl (Zofran) 4 mg Q6H PRN IVP Nausea & Vomiting 07/09/17 06:45 08/08/17 06:44 Piperacillin Sod/ Tazobactam Sod 4.5 gm/Dextrose 110 ml @ 27.5 mls/hr EVERY 8 HOURS IVPB 07/09/17 08:00 07/16/17 07:59 07/14/17 21:02 Polyethylene Glycol (Miralax) 17 gm DAILYPRN PRN ORAL Constipation 07/09/17 06:45 08/08/17 06:44 Vancomycin HCl (Vanco rx to dose) 1 ea DAILY PRN MISC . 07/09/17 07:00 08/08/17 06:59 Vancomycin/Sodium Chloride 250 ml @ 166.667 mls/hr Q24H IVPB 07/12/17 12:00 07/17/17 11:59 07/14/17 12:30 Zinc Sulfate (Zinc Sulfate) 220 mg DAILY ORAL 07/09/17 09:00 08/08/17 08:59 07/14/17 09:26 MARCUS PA M.D. Jul 14, 2017 23:33
[2017-07-15] VITALS: BP 108/68
[2017-07-15] MEDS: Morphine Sulfate 4mg/ml Inj IVP PRN (01:48)
[2017-07-15 04:00] VITALS: BP 119/76
[2017-07-15 05:27] LABS: BASOPHILS % (AUTO) 0.8 % (0.0-2.0); EOSINOPHILS % (AUTO) 2.3 % (0.0-3.0); LYMPHOCYTES % (AUTO) 14.9 % (20.0-45.0); MEAN CORPUSCULAR HEMOGLOBIN 29.2 PG (27.0-31.0); MEAN CORPUSCULAR HGB CONC 31.5 G/DL (32.0-36.0); MEAN CORPUSCULAR VOLUME 93 FL (80-99); MEAN PLATELET VOLUME 4.8 FL (6.5-10.1); MONOCYTES % (AUTO) 7.9 % (1.0-10.0); NEUTROPHILS % (AUTO) 74.1 % (45.0-75.0); PLATELET COUNT 647 K/UL (150-450); RED BLOOD COUNT 2.83 M/UL (4.70-6.10); RED CELL DISTRIBUTION WIDTH 16.2 % (11.6-14.8); WHITE BLOOD COUNT 15.8 K/UL (4.8-10.8)
[2017-07-15] MEDS: Zosyn 4.5gm q8h **Extended infusion IVPB SCH ×6 (06:10→21:17)
[2017-07-15 06:11] LABS: ALANINE AMINOTRANSFERASE 27 U/L (3-41); ALBUMIN/GLOBULIN RATIO 0.4 (1.0-2.7); ANION GAP 14 (5-15); ASPARTATE AMINO TRANSFERASE 40 U/L (5-40); CALCIUM 8.8 mg/dL (8.6-10.2); CARBON DIOXIDE 22 mEQ/L (20-30); CHLORIDE 103 mEQ/L (98-107); CREATININE 0.5 mg/dL (0.7-1.2); CRP QUANT 2.2 mg/dL (< 0.5); GLOMERULAR FILTRATION RATE > 60 mL/min (>60); HEMOLYSIS 27; MAGNESIUM 1.7 mg/dL (1.7-2.5); PHOSPHORUS 3.2 mg/dL (2.5-4.8); POTASSIUM 4.3 mEQ/L (3.4-4.9); SODIUM 139 mEQ/L (135-145); TOTAL PROTEIN 6.2 g/dL (6.6-8.7)
[2017-07-15 08:00] VITALS: BP 119/73
[2017-07-15 08:28] LABS: ERYTHROCYTE SEDIMENTATION RATE 131 MM/HR (0-20)
[2017-07-15] MEDS: levETIRAcetam 500mg/5ml Liquid GT SCH ×2 (09:04→21:17)
[2017-07-15] MEDS: Amiodarone 200mg tab GT SCH (09:05)
[2017-07-15] MEDS: Zinc Sulfate 220mg cap ORAL SCH (09:05)
[2017-07-15] MEDS: Lisinopril 20mg tab GT SCH (09:05)
--- NOTE | 2017-07-15 10:55 | Pulmonology Progress Note ---
Assessment/Plan Problems: (1) Sepsis (2) Atrial fibrillation (3) Feeding by G-tube (4) EF of 30 Assessment/Plan: wbc is higher today, pt is afebrile, PICC line removed already Respiratory: monitor respiratory rate, adjust FIO2, CXR Cardiac: continue to monitor HR/BP Renal: F/U I&O, keep IV fluid Infectious Disease: continue antibiotics Gastrointestinal: continue feedings/current rate Endocrine: monitor blood sugar, check HgA1C, continue sliding scale insulin Hematologic: monitor H/H, transfuse if hgb<8.5 Neurologic: PRN Ativan, PRN Morphine, keep patient comfortable Affect: PRN ativan Prophylaxis: Protonix Notes Reviewed: cloth sander, renal Discussed with: nurses, consultants, hospice case manager Subjective ROS Limited/Unobtainable: No Constitutional: Reports: no symptoms HEENT: Repors: no symptoms Respiratory: Reports: no symptoms Allergies: Coded Allergies: No Known Allergies (Unverified , 03/07/17) Objective Last 24 Hour Vital Signs Date Time Temp Pulse Resp B/P (MAP) Pulse Ox O2 Delivery O2 Flow Rate FiO2 07/15/17 09:05 119/73 07/15/17 09:05 91 119/73 07/15/17 08:00 30 07/15/17 08:00 93 07/15/17 08:00 97.2 91 23 119/73 100 Mechanical Ventilator 07/15/17 05:43 84 20 30 07/15/17 04:00 89 07/15/17 04:00 98.2 89 17 119/76 100 Mechanical Ventilator 07/15/17 04:00 30 07/15/17 02:52 84 19 30 07/15/17 00:55 81 21 30 07/15/17 00:00 98.0 89 18 108/68 100 Mechanical Ventilator 30 07/14/17 22:52 85 23 30 07/14/17 21:08 87 23 30 07/14/17 20:56 87 116/70 07/14/17 20:00 88 07/14/17 20:00 30 07/14/17 19:37 98.1 87 22 116/70 100 Mechanical Ventilator 30 07/14/17 19:07 85 18 30 07/14/17 16:52 77 19 30 07/14/17 16:00 97.3 82 20 122/73 100 Mechanical Ventilator 30 07/14/17 16:00 30 07/14/17 16:00 78 07/14/17 15:21 82 19 30 07/14/17 13:19 76 19 30 07/14/17 12:00 98.2 80 19 143/91 100 Mechanical Ventilator 30 07/14/17 12:00 30 07/14/17 12:00 65 Intake and Output 07/15/17 07/16/17 19:00 07:00 Intake Total 55.0 ml Balance 55.0 ml IV Total 55.0 ml General Appearance: cachetic HEENT: normocephalic, anicteric Respiratory/Chest: chest wall non-tender, lungs clear Cardiovascular: normal peripheral pulses, normal rate, regular rhythm Abdomen: normal bowel sounds, soft, non tender Genitourinary: normal external genitalia Extremities: no clubbing Skin: no lesions 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: no motor/sensory deficits, abnormal gait, normal mood/ affect Lymphatic: no neck adenopathy Microbiology Date/Time Source Procedure Growth Status 07/12/17 16:30 Blood Blood Culture - Preliminary NO GROWTH AFTER 48 HOURS Resulted 07/12/17 17:30 Stool Clostridium difficile Toxin Assay - Final Complete 07/12/17 16:30 Catheter Site Catheter Tip Culture - Preliminary NO GROWTH AFTER 72 HOURS Resulted Laboratory Tests 07/15/17 04:30: White Blood Count 15.8H, Red Blood Count 2.83L, Hemoglobin 8.3L, Hematocrit 26.3L, Mean Corpuscular Volume 93, Mean Corpuscular Hemoglobin 29.2, Mean Corpuscular Hemoglobin Concent 31.5L, Red Cell Distribution Width 16.2H, Platelet Count 647H, Mean Platelet Volume 4.8L, Neutrophils (%) (Auto) 74.1, Lymphocytes (%) (Auto) 14.9L, Monocytes (%) (Auto) 7.9, Eosinophils (%) (Auto) 2.3, Basophils (%) (Auto) 0.8, Erythrocyte Sedimentation Rate 131H, Sodium Level 139, Potassium Level 4.3, Chloride Level 103, Carbon Dioxide Level 22, Anion Gap 14, Blood Urea Nitrogen 13, Creatinine 0.5L, Estimat Glomerular Filtration Rate > 60, Glucose Level 87, Calcium Level 8.8, Phosphorus Level 3.2 , Magnesium Level 1.7, Total Bilirubin < 0.2, Aspartate Amino Transf (AST/SGOT) 40, Alanine Aminotransferase (ALT/SGPT) 27, Alkaline Phosphatase 133H, C- Reactive Protein, Quantitative 2.2H, Total Protein 6.2L, Albumin 1.9L, Globulin 4.3, Albumin/Globulin Ratio 0.4L Current Medications Medications (Trade) Dose Ordered Sig/Tameka Route PRN Reason Start Time Stop Time Status Last Admin Dose Admin Acetaminophen (Tylenol) 650 mg Q4H PRN ORAL T>100.5 07/09/17 06:45 08/08/17 06:44 07/11/17 23:46 Amiodarone HCl (Cordarone) 200 mg DAILY GT 07/09/17 09:00 08/08/17 08:59 07/15/17 09:05 Carvedilol (Coreg) 3.125 mg Q12HR GT 07/09/17 09:00 08/08/17 08:59 07/15/17 09:05 Dextrose (Dextrose 50%) STAT PRN IV Hypoglycemia 07/09/17 06:45 08/08/17 06:44 Levetiracetam (Keppra) 500 mg Q12HR GT 07/09/17 09:00 08/08/17 08:59 07/15/17 09:04 Lisinopril (Prinivil) 10 mg DAILY GT 07/09/17 09:00 08/08/17 08:59 07/15/17 09:05 Lorazepam (Ativan 2mg/ml 1ml) 2 mg Q2H PRN IV For Anxiety 07/09/17 06:45 07/16/17 06:44 Morphine Sulfate (Morphine Sulfate) 4 mg Q4H PRN IVP Severe Pain (Pain Scale 7-10) 07/09/17 06:45 07/16/17 06:44 07/15/17 01:48 Ondansetron HCl (Zofran) 4 mg Q6H PRN IVP Nausea & Vomiting 07/09/17 06:45 08/08/17 06:44 Piperacillin Sod/ Tazobactam Sod 4.5 gm/Dextrose 110 ml @ 27.5 mls/hr EVERY 8 HOURS IVPB 07/09/17 08:00 07/16/17 07:59 07/15/17 06:10 Polyethylene Glycol (Miralax) 17 gm DAILYPRN PRN ORAL Constipation 07/09/17 06:45 08/08/17 06:44 Vancomycin HCl (Vanco rx to dose) 1 ea DAILY PRN MISC . 07/09/17 07:00 08/08/17 06:59 Vancomycin/Sodium Chloride 250 ml @ 166.667 mls/hr Q24H IVPB 07/12/17 12:00 07/17/17 11:59 07/14/17 12:30 Zinc Sulfate (Zinc Sulfate) 220 mg DAILY ORAL 07/09/17 09:00 08/08/17 08:59 07/15/17 09:05 OEDTTE SMILEY Jul 15, 2017 10:55
[2017-07-15] MEDS: Vancomycin 750mg/NS 250ml IVPB SCH (11:22)
--- NOTE | 2017-07-15 11:40 | Diagnostic Imaging Report ---
APPROVED REPORT CPT Code: 08581 Present Symptoms Comments: Swelling (right arm) RIGHT UPPER EXTREMITY: Venous imaging reveals patency of the internal jugular, subclavian, axillary and brachial veins. Doppler indicates normal spontaneous flow within these venous segments. The cephalic and basilic veins were not well visualized.
[2017-07-15 12:00] VITALS: BP 110/67
--- NOTE | 2017-07-15 13:14 | Cardiology Report ---
APPROVED REPORT EXAM: Two-dimensional and M-mode echocardiogram with Doppler and color Doppler. INDICATION Endocarditis Technically difficult study due to poor acoustic windows. M-mode measurements not obtainable due to cardiac structure. Normal left ventricular chamber size, systolic function and wall motion.RV appears enlarged Left ventricular ejection fraction estimated to be 60-65 %. No evidence of left ventricular hypertrophy. No evidence of pericardial fat or effusion. Focal aortic valve sclerosis with adequate cusp excursion Thickened mitral valve leaflets with normal excursion. Mitral annulus and aortic root calcification. Pulmonic valve not well visualized. Normal tricuspid valve structure. IVC is normal in size with no physiological collapse. Probable pacemaker wire present in the right side chambers. No vegetation seen to extend visualized,however this study is not adequate for exclusion, consider DO if clinically indicated. A color flow and spectral Doppler study was performed and revealed: No aortic regurgitation. No mitral regurgitation. Normal left ventricular diastolic function. Mild tricuspid regurgitation. Tricuspid systolic velocities suggests peak right ventricular systolic pressure of 26 mmHg
[2017-07-15] MEDS ORDERED: NS 275ml ONE (14:00)
[2017-07-15] MEDS ORDERED: Tubing IV Secondary IV ONE (14:00)
[2017-07-15 16:00] VITALS: BP 104/64
[2017-07-15 20:00] VITALS: BP 104/67
--- NOTE | 2017-07-15 20:16 | Infectious Diseases Prog Note ---
Assessment/Plan Assessment/Plan ASSESSMENT: 1) Sepsis 2) LLL pneumonia 3) Coag neg staph RUE PICC associated bacteremia--repeat blood cx from 07/10 from picc again positive, neg from peripheral stick, 4) MDR Klebsiella and zosyn resistant Pseudomonas bacteriuria w/o pyuria--from condom cath. no indication to treat at this time. 5) Dehydration 6) Stage IV sacral decubitus ulcers --recent wcx: MDR ACB, C albicans, and KPC (sensitive only to colistin) during early May2017, his sacral decubitus ulcer probes to bone. has been evaluated by surgery and not considered surgical candidate, and he's received close care from the wound team, previously receiving Dakin's and chemical debridement of foul smelling fibrinous exudate centrally 7) Chronic sacrococcygeal osteomyelitis. see #4 above. could not obtain MRI b/c on and has AICD CT with contrast--some sacral/coccygeal erosion, but no abscess. no profound progression. 8) Leukocytosis increased 7) Fever, SP 9) Elevated alk phos, stable s/p u/s 06/13 with some GB wall thickening, no definite stone, acute acalculous cholecystitis not entirely excluded s/p U/s last admission negative for acute process secondary to chronic sacral bone osteolysis CT a/p w/o evidence of acute cholecystitis 10) HCV Ab+, no transaminitis currently. HIV negative on last admission 11) s/p diarrhea. recent C diff on last admission negative 12) h/o recurrent HCAP/VAP--MDR-ACB, KPC, Providencia, XDR Pseudomonas. No bacteremia documented in 2017. s/p treatment s/p (06/17 s/p vancomycin, cefepime D#7) (06/15 s/p amikacin D#4) (06/14 s/p flagyl D#2) (06/12 s/p ertapenem x1) (05/27 s/p tigecycline and colistin D#14/, meropenem D#/) (05/15 s/p IV vancomycin and zosyn D#5) s/p D#7 meroepenem and inhaled colistin (03/13 s/p vancomycin and zosyn D#5) 13) elevated ESR (117), low elevation of CRP--at last admission 14) reactive thrombocytosis 15) h/o UTI (06/25/17 s/p IV vanc/zosyn D#3) 16. bleeding at RUE picc. 17. MDR Psa and Klebsiella x2 in urine. u/a was not consistent with acute UTI, so suspect he has bacteriuria only. and he is responding on current therapy despite these organisms being resistant to pip/tazo. 18. Elevated inflammatory markers: ESR 140mm/hr, CRP 14.3 mg/dL C Diff : Neg Chronic anoxic encephalopathy--mentation at baseline -h/o cardiac arrest Borderline hypernatremia hypokalemia Cachexia with elevated CEA, normal PSA Acute on chronic anemia Sinus tachycardia respiratory alkalosis Chronic VDRF, s/p trach and PEG Cardiomyopathy s/p defibrillatory placement Paroxysmal Afib Intermediate resident MDRO colonized NKDA hypokalemia AM cortisol negative for adrenal insufficiency Full code? PLAN: --Continue empiric IV zosyn and vancomycin D# 7 / for LLL HCAP and coag neg staph RUE picc associated bacteremia. --PICC line tip for culture --RUE u/s to r/o associated clot --surveillance blood cx now, one from picc, one from peripheral --Monitor CXR --monitor CBC --monitor temp curve --Ventilatory support, tracheostomy care, aspiration precautions. --s/p Wound care consult -- UCx: P Subjective Constitutional: Denies: no symptoms, fever, chills, fatigue, anorexia, drenching sweats, other Allergies: Coded Allergies: No Known Allergies (Unverified , 03/07/17) Subjective non verbal Objective Vital Signs Last 24 Hour Vital Signs Date Time Temp Pulse Resp B/P (MAP) Pulse Ox O2 Delivery O2 Flow Rate FiO2 07/15/17 18:38 100 26 30 07/15/17 17:00 100 31 30 07/15/17 16:00 96 07/15/17 16:00 30 07/15/17 16:00 97.7 93 23 104/64 100 Mechanical Ventilator 30 07/15/17 15:06 93 23 30 07/15/17 13:03 93 20 30 07/15/17 12:11 84 07/15/17 12:00 97.5 82 21 110/67 100 Mechanical Ventilator 30 07/15/17 12:00 30 07/15/17 11:30 89 18 30 07/15/17 09:26 102 21 30 07/15/17 09:05 119/73 07/15/17 09:05 91 119/73 07/15/17 08:00 30 07/15/17 08:00 93 07/15/17 08:00 97.2 91 23 119/73 100 Mechanical Ventilator 30 07/15/17 07:16 90 18 30 07/15/17 05:43 84 20 30 07/15/17 04:00 89 07/15/17 04:00 98.2 89 17 119/76 100 Mechanical Ventilator 30 07/15/17 04:00 30 07/15/17 02:52 84 19 30 07/15/17 00:55 81 21 30 07/15/17 00:00 98.0 89 18 108/68 100 Mechanical Ventilator 30 07/14/17 22:52 85 23 30 07/14/17 21:08 87 23 30 07/14/17 20:56 87 116/70 Height (Feet): 5 Height (Inches): 8.00 Weight (Pounds): 130 Laboratory Tests Test 07/15/17 04:30 White Blood Count 15.8 K/UL (4.8-10.8) H Red Blood Count 2.83 M/UL (4.70-6.10) L Hemoglobin 8.3 G/DL (14.2-18.0) L Hematocrit 26.3 % (42.0-52.0) L Mean Corpuscular Volume 93 FL (80-99) Mean Corpuscular Hemoglobin 29.2 PG (27.0-31.0) Mean Corpuscular Hemoglobin Concent 31.5 G/DL (32.0-36.0) L Red Cell Distribution Width 16.2 % (11.6-14.8) H Platelet Count 647 K/UL (150-450) H Mean Platelet Volume 4.8 FL (6.5-10.1) L Neutrophils (%) (Auto) 74.1 % (45.0-75.0) Lymphocytes (%) (Auto) 14.9 % (20.0-45.0) L Monocytes (%) (Auto) 7.9 % (1.0-10.0) Eosinophils (%) (Auto) 2.3 % (0.0-3.0) Basophils (%) (Auto) 0.8 % (0.0-2.0) Erythrocyte Sedimentation Rate 131 MM/HR (0-20) H Sodium Level 139 mEQ/L (135-145) Potassium Level 4.3 mEQ/L (3.4-4.9) Chloride Level 103 mEQ/L (98-107) Carbon Dioxide Level 22 mEQ/L (20-30) Anion Gap 14 (5-15) Blood Urea Nitrogen 13 mg/dL (7-23) Creatinine 0.5 mg/dL (0.7-1.2) L Estimat Glomerular Filtration Rate > 60 mL/min (>60) Glucose Level 87 mg/dL (74-106) Calcium Level 8.8 mg/dL (8.6-10.2) Phosphorus Level 3.2 mg/dL (2.5-4.8) Magnesium Level 1.7 mg/dL (1.7-2.5) Total Bilirubin < 0.2 mg/dL (0.0-1.2) Aspartate Amino Transf (AST/SGOT) 40 U/L (5-40) Alanine Aminotransferase (ALT/SGPT) 27 U/L (3-41) Alkaline Phosphatase 133 U/L (40-129) H C-Reactive Protein, Quantitative 2.2 mg/dL (< 0.5) H Total Protein 6.2 g/dL (6.6-8.7) L Albumin 1.9 g/dL (3.5-5.2) L Globulin 4.3 g/dL Albumin/Globulin Ratio 0.4 (1.0-2.7) L Current Medications Medications (Trade) Dose Ordered Sig/Tameka Route PRN Reason Start Time Stop Time Status Last Admin Dose Admin Acetaminophen (Tylenol) 650 mg Q4H PRN ORAL T>100.5 07/09/17 06:45 08/08/17 06:44 07/11/17 23:46 Amiodarone HCl (Cordarone) 200 mg DAILY GT 07/09/17 09:00 08/08/17 08:59 07/15/17 09:05 Carvedilol (Coreg) 3.125 mg Q12HR GT 07/09/17 09:00 08/08/17 08:59 07/15/17 09:05 Dextrose (Dextrose 50%) STAT PRN IV Hypoglycemia 07/09/17 06:45 08/08/17 06:44 Levetiracetam (Keppra) 500 mg Q12HR GT 07/09/17 09:00 08/08/17 08:59 07/15/17 09:04 Lisinopril (Prinivil) 10 mg DAILY GT 07/09/17 09:00 08/08/17 08:59 07/15/17 09:05 Lorazepam (Ativan 2mg/ml 1ml) 2 mg Q2H PRN IV For Anxiety 07/09/17 06:45 07/16/17 06:44 Morphine Sulfate (Morphine Sulfate) 4 mg Q4H PRN IVP Severe Pain (Pain Scale 7-10) 07/09/17 06:45 07/16/17 06:44 07/15/17 01:48 Ondansetron HCl (Zofran) 4 mg Q6H PRN IVP Nausea & Vomiting 07/09/17 06:45 08/08/17 06:44 Piperacillin Sod/ Tazobactam Sod 4.5 gm/Dextrose 110 ml @ 27.5 mls/hr EVERY 8 HOURS IVPB 07/09/17 08:00 07/16/17 07:59 07/15/17 14:13 Polyethylene Glycol (Miralax) 17 gm DAILYPRN PRN ORAL Constipation 07/09/17 06:45 08/08/17 06:44 Vancomycin HCl (Vanco rx to dose) 1 ea DAILY PRN MISC . 07/09/17 07:00 08/08/17 06:59 Vancomycin/Sodium Chloride 250 ml @ 166.667 mls/hr Q24H IVPB 07/12/17 12:00 07/17/17 11:59 07/15/17 11:22 Zinc Sulfate (Zinc Sulfate) 220 mg DAILY ORAL 07/09/17 09:00 08/08/17 08:59 07/15/17 09:05 MARCUS PA M.D. Jul 15, 2017 20:15
--- NOTE | 2017-07-15 23:15 | General Progress Note ---
Assessment/Plan Status: unchanged Assessment/Plan 1. Leukocytosis, likely secondary to history of bandemia. --> Wbc count improving steadily, continue to monitor 2. Coagulopathy, will need to be rechecked urgently with an INR and consider administration of vitamin K if needed. 3. Bleeding from right upper extremity PICC line. Closely monitor. 4. Anemia, acute onset. Workup completed and reviewed. --> Blood transfusion not required unless symptomatic or hgb<7.5 5. Hepatitis C positive test, no transaminitis noted. 6. Status post pyuria. Recent Clostridium difficile was negative. 7. Stage IV decubitus ulcerations, growing multiple organisms. Please see ID note. 8. Thrombocytosis, multifactorial --> continue to monitor Subjective Date patient seen: Jul 15, 2017 Time patient seen: 06:00 Constitutional: Denies: no symptoms, chills, diaphoresis, fever, malaise, weakness, other HEENT: Denies: no symptoms, eye pain, blurred vision, tearing, double vision, ear pain, ear discharge, nose pain, nose congestion, throat pain, throat swelling, mouth pain, mouth swelling, other Cardiovascular: Denies: no symptoms, chest pain, edema, irregular heart rate, lightheadedness, palpitations, syncope, other Respiratory: Denies: no symptoms, cough, orthopnea, shortness of breath, SOB with excertion, SOB at rest, sputum, stridor, wheezing, other Gastrointestinal/Abdominal: Denies: no symptoms, abdomen distended, abdominal pain, black stools, tarry stools, blood in stool, constipated, diarrhea, difficulty swallowing, nausea, poor appetite, poor fluid intake, rectal bleeding , vomiting, other Genitourinary: Denies: no symptoms, burning, discharge, frequency, flank pain, hematuria, incontinence, pain, urgency, other 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: Denies: no symptoms, anxiety, depressed, emotional problems, headache, numbness, paresthesia, pre-existing deficit, seizure, tingling, tremors, weakness, other Hematologic/Lymphatic: Reports: anemia Allergies: Coded Allergies: No Known Allergies (Unverified , 03/07/17) Subjective No complaints of pain. Afebrile. Leukocytosis continues to improve. No acute distress. Anemia stable. Objective Last 24 Hour Vital Signs Date Time Temp Pulse Resp B/P (MAP) Pulse Ox O2 Delivery O2 Flow Rate FiO2 07/15/17 21:20 100 22 30 07/15/17 21:17 94 104/67 07/15/17 20:00 97.5 94 22 104/67 100 Mechanical Ventilator 30 07/15/17 20:00 30 07/15/17 20:00 97 07/15/17 18:38 100 26 30 07/15/17 17:00 100 31 30 07/15/17 16:00 96 07/15/17 16:00 30 07/15/17 16:00 97.7 93 23 104/64 100 Mechanical Ventilator 30 07/15/17 15:06 93 23 30 07/15/17 13:03 93 20 30 07/15/17 12:11 84 07/15/17 12:00 97.5 82 21 110/67 100 Mechanical Ventilator 30 07/15/17 12:00 30 07/15/17 11:30 89 18 30 07/15/17 09:26 102 21 30 07/15/17 09:05 119/73 07/15/17 09:05 91 119/73 07/15/17 08:00 30 07/15/17 08:00 93 07/15/17 08:00 97.2 91 23 119/73 100 Mechanical Ventilator 30 07/15/17 07:16 90 18 30 07/15/17 05:43 84 20 30 07/15/17 04:00 89 07/15/17 04:00 98.2 89 17 119/76 100 Mechanical Ventilator 30 07/15/17 04:00 30 07/15/17 02:52 84 19 30 07/15/17 00:55 81 21 30 07/15/17 00:00 98.0 89 18 108/68 100 Mechanical Ventilator 30 Intake and Output 07/15/17 07/16/17 19:00 07:00 Intake Total 1340.000 ml Output Total 600 ml Balance 740.000 ml Intake Free Water 150 ml IV Total 470.000 ml Tube Feeding 720 ml Output Urine Total 600 ml Laboratory Tests 07/15/17 04:30: White Blood Count 15.8H, Red Blood Count 2.83L, Hemoglobin 8.3L, Hematocrit 26.3L, Mean Corpuscular Volume 93, Mean Corpuscular Hemoglobin 29.2, Mean Corpuscular Hemoglobin Concent 31.5L, Red Cell Distribution Width 16.2H, Platelet Count 647H, Mean Platelet Volume 4.8L, Neutrophils (%) (Auto) 74.1, Lymphocytes (%) (Auto) 14.9L, Monocytes (%) (Auto) 7.9, Eosinophils (%) (Auto) 2.3, Basophils (%) (Auto) 0.8, Erythrocyte Sedimentation Rate 131H, Sodium Level 139, Potassium Level 4.3, Chloride Level 103, Carbon Dioxide Level 22, Anion Gap 14, Blood Urea Nitrogen 13, Creatinine 0.5L, Estimat Glomerular Filtration Rate > 60, Glucose Level 87, Calcium Level 8.8, Phosphorus Level 3.2 , Magnesium Level 1.7, Total Bilirubin < 0.2, Aspartate Amino Transf (AST/SGOT) 40, Alanine Aminotransferase (ALT/SGPT) 27, Alkaline Phosphatase 133H, C- Reactive Protein, Quantitative 2.2H, Total Protein 6.2L, Albumin 1.9L, Globulin 4.3, Albumin/Globulin Ratio 0.4L Height (Feet): 5 Height (Inches): 8.00 Weight (Pounds): 130 General Appearance: cachetic Cardiovascular: normal rate, regular rhythm Respiratory/Chest: decreased breath sounds Abdomen: normal bowel sounds, non tender, soft BILL ROSE Jul 15, 2017 23:15
[2017-07-16] VITALS: BP 102/64
[2017-07-16 04:00] VITALS: BP 116/72
[2017-07-16 05:36] LABS: BASOPHILS % (AUTO) 0.6 % (0.0-2.0); LYMPHOCYTES % (AUTO) 14.9 % (20.0-45.0); MEAN CORPUSCULAR HEMOGLOBIN 30.8 PG (27.0-31.0); MEAN CORPUSCULAR HGB CONC 33.3 G/DL (32.0-36.0); MEAN CORPUSCULAR VOLUME 92 FL (80-99); MEAN PLATELET VOLUME 5.2 FL (6.5-10.1); MONOCYTES % (AUTO) 8.2 % (1.0-10.0); NEUTROPHILS % (AUTO) 73.3 % (45.0-75.0); PLATELET COUNT 558 K/UL (150-450); RED CELL DISTRIBUTION WIDTH 15.9 % (11.6-14.8); WHITE BLOOD COUNT 10.6 K/UL (4.8-10.8)
[2017-07-16 05:53] LABS: ALANINE AMINOTRANSFERASE 36 U/L (3-41); ALBUMIN/GLOBULIN RATIO 0.5 (1.0-2.7); ANION GAP 7 (5-15); ASPARTATE AMINO TRANSFERASE 45 U/L (5-40); CALCIUM 8.9 mg/dL (8.6-10.2); CARBON DIOXIDE 30 mEQ/L (20-30); CHLORIDE 103 mEQ/L (98-107); CREATININE 0.5 mg/dL (0.7-1.2); CRP QUANT 1.6 mg/dL (< 0.5); GLOMERULAR FILTRATION RATE > 60 mL/min (>60); HEMOLYSIS 8; MAGNESIUM 1.6 mg/dL (1.7-2.5); PHOSPHORUS 2.9 mg/dL (2.5-4.8); POTASSIUM 4.2 mEQ/L (3.4-4.9); SODIUM 140 mEQ/L (135-145); TOTAL PROTEIN 6.2 g/dL (6.6-8.7)
[2017-07-16] MEDS: Zosyn 4.5gm q8h **Extended infusion IVPB SCH ×2 (06:24)
[2017-07-16 07:11] LABS: ERYTHROCYTE SEDIMENTATION RATE 129 MM/HR (0-20)
[2017-07-16 08:00] VITALS: BP 132/86
[2017-07-16] MEDS: Amiodarone 200mg tab GT SCH (08:33)
[2017-07-16] MEDS: Lisinopril 20mg tab GT SCH (08:33)
[2017-07-16] MEDS: levETIRAcetam 500mg/5ml Liquid GT SCH (08:33)
[2017-07-16] MEDS: Zinc Sulfate 220mg cap ORAL SCH (08:34)
[2017-07-16] MEDS ORDERED: ZOSYN 3.373.375 GM/1 IVPB (11:00)
[2017-07-16] MEDS ORDERED: VANCOMYCIN1 GM/2502 IVPB (11:00)
--- NOTE | 2017-07-16 11:01 | Pulmonology Progress Note ---
Assessment/Plan Problems: (1) Sepsis (2) Atrial fibrillation (3) Feeding by G-tube (4) EF of 30 Assessment/Plan: wbc is higher today, pt is afebrile, PICC line removed already Respiratory: monitor respiratory rate, adjust FIO2, CXR Cardiac: continue to monitor HR/BP Renal: F/U I&O, keep IV fluid Infectious Disease: check cultures, add antibiotics Gastrointestinal: continue feedings/current rate Endocrine: monitor blood sugar, check TSH, continue sliding scale insulin Hematologic: monitor H/H, transfuse if hgb<8.5 Neurologic: PRN Ativan, PRN Morphine, keep patient comfortable Affect: PRN ativan Prophylaxis: Heparin Notes Reviewed: round boner, cardio Discussed with: nurses, consultants, case assistant Subjective ROS Limited/Unobtainable: No Constitutional: Reports: no symptoms HEENT: Repors: no symptoms Respiratory: Reports: no symptoms Allergies: Coded Allergies: No Known Allergies (Unverified , 03/07/17) Objective Last 24 Hour Vital Signs Date Time Temp Pulse Resp B/P (MAP) Pulse Ox O2 Delivery O2 Flow Rate FiO2 07/16/17 09:23 88 19 30 07/16/17 08:34 102 132/86 07/16/17 08:33 132/86 07/16/17 08:00 96 07/16/17 08:00 30 07/16/17 08:00 97.9 102 22 132/86 100 Mechanical Ventilator 07/16/17 07:28 94 20 30 07/16/17 04:48 101 24 30 07/16/17 04:00 98.2 98 22 116/72 100 Mechanical Ventilator 07/16/17 04:00 30 07/16/17 04:00 103 07/16/17 02:35 99 24 30 07/16/17 00:39 98 24 30 07/16/17 00:01 97 07/16/17 00:00 30 07/16/17 00:00 97.9 95 22 102/64 100 Mechanical Ventilator 07/15/17 23:09 86 21 30 07/15/17 21:20 100 22 30 07/15/17 21:17 94 104/67 07/15/17 20:00 97.5 94 22 104/67 100 Mechanical Ventilator 07/15/17 20:00 30 07/15/17 20:00 97 07/15/17 18:38 100 26 30 07/15/17 17:00 100 31 30 07/15/17 16:00 96 07/15/17 16:00 30 07/15/17 16:00 97.7 93 23 104/64 100 Mechanical Ventilator 30 07/15/17 15:06 93 23 30 07/15/17 13:03 93 20 30 07/15/17 12:11 84 07/15/17 12:00 97.5 82 21 110/67 100 Mechanical Ventilator 30 07/15/17 12:00 30 07/15/17 11:30 89 18 30 Intake and Output 07/16/17 07/17/17 19:00 07:00 Intake Total 82.5 ml Balance 82.5 ml IV Total 82.5 ml General Appearance: cachetic HEENT: normocephalic, atraumatic Respiratory/Chest: chest wall non-tender, lungs clear Cardiovascular: normal peripheral pulses, normal rate, regular rhythm Abdomen: normal bowel sounds, soft, non tender Genitourinary: normal external genitalia Extremities: no cyanosis Skin: no lesions, no ulcers 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, abnormal gait, normal mood/ affect Lymphatic: no neck adenopathy Laboratory Tests 07/16/17 04:15: White Blood Count 10.6, Red Blood Count 2.70L, Hemoglobin 8.3L, Hematocrit 25.0L , Mean Corpuscular Volume 92, Mean Corpuscular Hemoglobin 30.8, Mean Corpuscular Hemoglobin Concent 33.3, Red Cell Distribution Width 15.9H, Platelet Count 558H, Mean Platelet Volume 5.2L, Neutrophils (%) (Auto) 73.3, Lymphocytes (%) (Auto) 14.9L, Monocytes (%) (Auto) 8.2, Eosinophils (%) (Auto) 3.0, Basophils (%) (Auto) 0.6, Erythrocyte Sedimentation Rate 129H, Sodium Level 140, Potassium Level 4.2, Chloride Level 103, Carbon Dioxide Level 30, Anion Gap 7, Blood Urea Nitrogen 15, Creatinine 0.5L, Estimat Glomerular Filtration Rate > 60, Glucose Level 121H, Calcium Level 8.9, Phosphorus Level 2.9, Magnesium Level 1.6L, Total Bilirubin < 0.2, Aspartate Amino Transf (AST/ SGOT) 45H, Alanine Aminotransferase (ALT/SGPT) 36, Alkaline Phosphatase 143H, C- Reactive Protein, Quantitative 1.6H, Total Protein 6.2L, Albumin 2.2L, Globulin 4.0, Albumin/Globulin Ratio 0.5L Current Medications Medications (Trade) Dose Ordered Sig/Tameka Route PRN Reason Start Time Stop Time Status Last Admin Dose Admin Acetaminophen (Tylenol) 650 mg Q4H PRN ORAL T>100.5 07/09/17 06:45 08/08/17 06:44 07/11/17 23:46 Amiodarone HCl (Cordarone) 200 mg DAILY GT 07/09/17 09:00 08/08/17 08:59 07/16/17 08:33 Carvedilol (Coreg) 3.125 mg Q12HR GT 07/09/17 09:00 08/08/17 08:59 07/16/17 08:34 Dextrose (Dextrose 50%) STAT PRN IV Hypoglycemia 07/09/17 06:45 08/08/17 06:44 Levetiracetam (Keppra) 500 mg Q12HR GT 07/09/17 09:00 08/08/17 08:59 07/16/17 08:33 Lisinopril (Prinivil) 10 mg DAILY GT 07/09/17 09:00 08/08/17 08:59 07/16/17 08:33 Ondansetron HCl (Zofran) 4 mg Q6H PRN IVP Nausea & Vomiting 07/09/17 06:45 08/08/17 06:44 Polyethylene Glycol (Miralax) 17 gm DAILYPRN PRN ORAL Constipation 07/09/17 06:45 08/08/17 06:44 Vancomycin HCl (Vanco rx to dose) 1 ea DAILY PRN MISC . 07/09/17 07:00 08/08/17 06:59 Vancomycin/Sodium Chloride 250 ml @ 166.667 mls/hr Q24H IVPB 07/12/17 12:00 07/17/17 11:59 07/15/17 11:22 Zinc Sulfate (Zinc Sulfate) 220 mg DAILY ORAL 07/09/17 09:00 08/08/17 08:59 07/16/17 08:34 ODETTE SMILEY Jul 16, 2017 11:01
[2017-07-16] MEDS: Vancomycin 750mg/NS 250ml IVPB SCH (11:15)
[2017-07-16 12:00] VITALS: BP 108/67
[2017-07-16] MEDS ORDERED: Zosyn 4.5gm q8h **Extended infusion IVPB SCH ×2 (14:00)
[2017-07-16] MEDS ORDERED: NS 275ml ONE (14:02)
[2017-07-16] MEDS ORDERED: Tubing IV Secondary IV ONE (14:02)
--- NOTE | 2017-07-16 22:56 | General Progress Note ---
Assessment/Plan Status: stable Assessment/Plan 1. Leukocytosis, likely secondary to history of bandemia. --> Wbc count WNL, resolved 2. Coagulopathy, will need to be rechecked urgently with an INR and consider administration of vitamin K if needed. 3. Bleeding from right upper extremity PICC line. Closely monitor. 4. Anemia, acute onset. Workup completed and reviewed. --> Blood transfusion not required unless symptomatic or hgb<7.5 --> Has been stable over >8 but continue to monitor. 5. Hepatitis C positive test, no transaminitis noted. 6. Status post pyuria. Recent Clostridium difficile was negative. 7. Stage IV decubitus ulcerations, growing multiple organisms. Please see ID note. 8. Thrombocytosis, multifactorial --> continue to monitor Subjective Date patient seen: Jul 16, 2017 Time patient seen: 06:00 Constitutional: Denies: no symptoms, chills, diaphoresis, fever, malaise, weakness, other HEENT: Denies: no symptoms, eye pain, blurred vision, tearing, double vision, ear pain, ear discharge, nose pain, nose congestion, throat pain, throat swelling, mouth pain, mouth swelling, other Cardiovascular: Denies: no symptoms, chest pain, edema, irregular heart rate, lightheadedness, palpitations, syncope, other Respiratory: Denies: no symptoms, cough, orthopnea, shortness of breath, SOB with excertion, SOB at rest, sputum, stridor, wheezing, other Gastrointestinal/Abdominal: Denies: no symptoms, abdomen distended, abdominal pain, black stools, tarry stools, blood in stool, constipated, diarrhea, difficulty swallowing, nausea, poor appetite, poor fluid intake, rectal bleeding , vomiting, other Hematologic/Lymphatic: Reports: anemia Allergies: Coded Allergies: No Known Allergies (Unverified , 03/07/17) Subjective No complaints of pain. Afebrile. Leukocytosis resolved. No acute distress. Anemia stable. Platelets high. Objective Last 24 Hour Vital Signs Date Time Temp Pulse Resp B/P (MAP) Pulse Ox O2 Delivery O2 Flow Rate FiO2 07/16/17 12:53 100 20 30 07/16/17 12:00 97 07/16/17 12:00 30 07/16/17 12:00 98.2 94 23 108/67 100 Mechanical Ventilator 30 07/16/17 11:04 96 20 30 07/16/17 09:23 88 19 30 07/16/17 08:34 102 132/86 07/16/17 08:33 132/86 07/16/17 08:00 96 07/16/17 08:00 30 07/16/17 08:00 97.9 102 22 132/86 100 Mechanical Ventilator 30 07/16/17 07:28 94 20 30 07/16/17 04:48 101 24 30 07/16/17 04:00 98.2 98 22 116/72 100 Mechanical Ventilator 30 07/16/17 04:00 30 07/16/17 04:00 103 07/16/17 02:35 99 24 30 07/16/17 00:39 98 24 30 07/16/17 00:01 97 07/16/17 00:00 30 07/16/17 00:00 97.9 95 22 102/64 100 Mechanical Ventilator 30 07/15/17 23:09 86 21 30 Intake and Output 07/16/17 07/17/17 19:00 07:00 Intake Total 967.500 ml Output Total 750 ml Balance 217.500 ml Intake Free Water 100 ml IV Total 387.500 ml Tube Feeding 480 ml Output Urine Total 750 ml Laboratory Tests 07/16/17 04:15: White Blood Count 10.6, Red Blood Count 2.70L, Hemoglobin 8.3L, Hematocrit 25.0L , Mean Corpuscular Volume 92, Mean Corpuscular Hemoglobin 30.8, Mean Corpuscular Hemoglobin Concent 33.3, Red Cell Distribution Width 15.9H, Platelet Count 558H, Mean Platelet Volume 5.2L, Neutrophils (%) (Auto) 73.3, Lymphocytes (%) (Auto) 14.9L, Monocytes (%) (Auto) 8.2, Eosinophils (%) (Auto) 3.0, Basophils (%) (Auto) 0.6, Erythrocyte Sedimentation Rate 129H, Sodium Level 140, Potassium Level 4.2, Chloride Level 103, Carbon Dioxide Level 30, Anion Gap 7, Blood Urea Nitrogen 15, Creatinine 0.5L, Estimat Glomerular Filtration Rate > 60, Glucose Level 121H, Calcium Level 8.9, Phosphorus Level 2.9, Magnesium Level 1.6L, Total Bilirubin < 0.2, Aspartate Amino Transf (AST/ SGOT) 45H, Alanine Aminotransferase (ALT/SGPT) 36, Alkaline Phosphatase 143H, C- Reactive Protein, Quantitative 1.6H, Total Protein 6.2L, Albumin 2.2L, Globulin 4.0, Albumin/Globulin Ratio 0.5L Height (Feet): 5 Height (Inches): 8.00 Weight (Pounds): 130 General Appearance: no apparent distress Neck: non-tender Cardiovascular: regular rhythm Respiratory/Chest: lungs clear, normal breath sounds Abdomen: normal bowel sounds, non tender, soft BILL ROSE Jul 16, 2017 22:56
--- NOTE | 2017-07-18 14:44 | Discharge Summary ---
Discharge Summary Hospital Course Date of Admission Jul 08, 2017 at 22:46 Date of Discharge Jul 16, 2017 at 15:00 Admitting Diagnosis sepsis HPI Yamil Wells is a 57 year old male who was admitted on Jul 08, 2017 at 22:46 for Sepsis Hospital Course [id number] Discharge Discharge Disposition Patient was discharged to SNF/Subacute Facility(03) Discharge Diagnoses: Miriam Lazo NP Jul 18, 2017 14:44
--- NOTE | 2017-07-19 02:00 | Discharge Summary 2 SIG ---
DATE OF ADMISSION: 07/08/2017 DATE OF DISCHARGE: 07/16/2017 CONSULTANTS: 1. Earl James M.D. 2. Colby Friend M.D. BRIEF HOSPITAL COURSE: The patient is a 57-year-old male with history of vent-dependent respiratory failure, on feeding tube and is bedbound, presented to ED due to fever. On evaluation at ED, blood work showed leukocytosis. WBC was elevated to 18. Potassium was elevated to 6. INR was 8.8. He had a chest x-ray done, which showed pneumonia. EKG done, was in sinus tachycardia. He was then admitted to [facility] for sepsis. He continued to have fever. He was initially hypotensive, but resolved, status post fluid bolus. He also has hypovolemia secondary to dehydration. He had a sacral wound with foul smell and had a history of recurrent HCAP/VAP-MDR-ACB bacteremia. He was started on vancomycin and Zosyn. He was continued on mechanical vent support. Baseline ABGs were stable. He had acute renal failure, which improved with hydration. Abdominal and pelvic CT showed multiple bilateral nonobstructive stones within the kidney. He was seen by wound nurse and came in with multiple stage IV/unstageable pressure ulcer and was given wound care. He had hypercoagulable state, INR was monitored. He also had an episode of anemia and blood transfusion was given. Blood culture from 07/08/2017 showed staphylococcus. Repeat blood cultures did not isolate any growth. CT of the abdomen and pelvis showed some sacral/coccygeal erosion; however, no abscess and no profound progression. Unable to do an MRI as the patient has AICD and is on vent. There was growth of MDR Pseudomonas and Klebsiella in the urine. UA was not consistent with acute UTI suspect bacteriuria only. The patient was responding to therapy. C. difficile was negative. He was continued on IV Zosyn and vancomycin, and was eventually discharged back to SNF. FINAL DIAGNOSES: 1. Sepsis. 2. Left lower lung pneumonia. 3. Coagulase-negative Staph bacteremia. 4. Multidrug-resistant Klebsiella and Zosyn-resistant Pseudomonas bacteriuria. 5. Multiple decubitus pressure ulcer, present on admission. 6. Dehydration. 7. Chronic sacrococcygeal osteomyelitis. 8. Elevated alkaline phosphatase. 9. Hepatitis C. 10. Elevated ESR. 11. Reactive thrombocytosis. 12. Multidrug-resistant Pseudomonas and Klebsiella urinary tract infection 13. Acute anemia, requiring blood transfusion. 14. Hypercoagulable state. 15. Dysphagia with feeding via gastrostomy tube. DISPOSITION: The patient was discharged to SNF. DISCHARGE MEDICATIONS: Refer to medication list. Shani Moses M.D. I have been assigned to dictate discharge summary on this account and I was not involved in the patient's management. Miriam Lazo N.P. DR: TRINY JOB#: [id number] CC: DEMAR
== END 2017-07-16 15:00 | DRG 720 ==
LOC: EDBD 22:09 → EMR 22:20 → 2W 22:46 → EDBEDREQ 22:53 → 2W 07-09 08:02
PROC: 5A1955Z Respiratory Ventilation, Greater than 96 Consecutive Hours (ICD-10-PCS; principal; 2017-07-08)
PROC: 30233N1 Transfusion of Nonautologous Red Blood Cells into Peripheral Vein, Percutaneous Approach (ICD-10-PCS; 2017-07-10)
DX: A41.9 Sepsis, unspecified organism (principal); J96.20 Acute and chronic respiratory failure, unspecified whether with hypoxia or hypercapnia; E43 Unspecified severe protein-calorie malnutrition; Z99.11 Dependence on respirator [ventilator] status; J18.9 Pneumonia, unspecified organism; L89.154 Pressure ulcer of sacral region, stage 4; N17.9 Acute kidney failure, unspecified; G93.1 Anoxic brain damage, not elsewhere classified; Z93.0 Tracheostomy status; R65.20 Severe sepsis without septic shock; Z93.1 Gastrostomy status; D64.9 Anemia, unspecified; Z68.1 Body mass index [BMI] 19.9 or less, adult; Z74.01 Bed confinement status; D68.59 Other primary thrombophilia; B19.20 Unspecified viral hepatitis C without hepatic coma; Z95.810 Presence of automatic (implantable) cardiac defibrillator; E86.1 Hypovolemia; E86.0 Dehydration; N20.0 Calculus of kidney; R00.0 Tachycardia, unspecified; D72.829 Elevated white blood cell count, unspecified; M46.28 Osteomyelitis of vertebra, sacral and sacrococcygeal region; R13.10 Dysphagia, unspecified; I25.5 Ischemic cardiomyopathy; I48.0 Paroxysmal atrial fibrillation; D47.3 Essential (hemorrhagic) thrombocythemia; T82.838A Hemorrhage due to vascular prosthetic devices, implants and grafts, initial encounter; E87.6 Hypokalemia; E87.3 Alkalosis; E87.5 Hyperkalemia; R82.71 Bacteriuria; R53.2 Functional quadriplegia
CPT/HCPCS: 36415; 36600; 71010; 74176; 80048; 80053; 80069; 80202; 81003; 82550; 82553; 82607; 82728; 82746; 82803; 82962; 83010; 83090; 83540; 83550; 83605; 83615; 83735; 83880; 84100; 84484; 84550; 85007; 85025; 85044; 85060; 85610; 85651; 85730; 86140; 86850; 86900; 86901; 86920; 87040; 87070; 87081; 87086; 87181; 87324; 93005; 93306; 93970; 93971; 94002; 94003; 94664; 97802; 99291

== ENCOUNTER 2017-08-01 10:22 | Inpatient (IN) | payer OTHER ==
[~2017-08-01] VITALS: Ht 175.3 cm; Wt 56.2 kg
[2017-08-01 10:21] VITALS: BP 103/66
[~2017-08-01 10:22] MED LIST changes: +POTASSIUM99 M2 GT; +ZOSYN 3.373.375 GM/1 IVPB
--- NOTE | 2017-08-01 10:31 | Emergency Room Report ---
History of Present Illness General Chief Complaint: Abnormal Labs Source: Medical Record, EMS Present Illness HPI Patient presents with complaints of abnormal blood work Patient was found to have elevated white blood for count Also found to be anemic Patient himself has a tracheostomy in place Is nonverbal History of present illness is significantly limited Patient has a feeding tube in place there was no reports of vomiting or diarrhea Patient had previous procedure in the hospital and has drain tubes in place as well Allergies: Coded Allergies: No Known Allergies (Unverified , 03/07/17) Patient History Limited by: medical condition Past Medical History: see triage record Pertinent Family History: unable to obtain Reviewed Nursing Documentation: PMH: Agreed, PSxH: Agreed Nursing Documentation-PMH Past Medical History: No History, Except For Hx Cardiac Problems: Yes - Afib Hx Hypertension: Yes - Anemia Hx Pacemaker: Yes Hx Diabetes: No Hx Gastrointestinal Problems: Yes - GT Hx Neurological Problems: Yes - ENCEPHALOPATHY Hx Cerebrovascular Accident: Yes Hx Seizures: Yes Review of Systems All Other Systems: limited - Other than the ones mentioned in the history of present illness all others are reviewed however they do stay limited due to the patient's mental status Physical Exam Vital Signs Date Time Temp Pulse Resp B/P (MAP) Pulse Ox O2 Delivery O2 Flow Rate FiO2 08/01/17 10:11 97.2 80 20 158/82 99 Mechanical Ventilator 30 Sp02 EP Interpretation: reviewed, normal General Appearance: no apparent distress Head: normocephalic, atraumatic Eyes: bilateral eye PERRL ENT: normal pharynx, no angioedema, dry mucus membranes, other - Bandage over the left ear Neck: supple Respiratory: no respiratory distress, no retraction, crackles - both lower lobes Cardiovascular #1: regular rate, rhythm, no edema Gastrointestinal: other - Feeding tube in place, just on the right lateral aspect of the feeding tube there are 2 tubings, stitched into the abdominal area with mild abrasion Musculoskeletal: other - Patient contracted does not move extremities, Neurologic: responsive - to physical stimuli Skin: other - multiple decubitus ulcers Lymphatic: no adenopathy Medical Decision Making Diagnostic Impression: Primary Impression: Anemia Additional Impression: Weakness generalized ER Course Multiple differentials considered Patient's complex requiring blood work and imaging study Patient's findings reveal anemia given the general symptoms patient is symptomatic anemia Patient however does not require acute emergency transfusion In the distant will be admitted for further GI consultation and inpatient care Labs Test 9/17/17 00:00 08/03/17 04:00 08/04/17 04:00 08/04/17 17:07 Stool Occult Blood Negative (NEGATIVE) White Blood Count 10.4 K/UL (4.8-10.8) 12.1 K/UL (4.8-10.8) Red Blood Count 2.79 M/UL (4.70-6.10) 2.89 M/UL (4.70-6.10) Hemoglobin 8.3 G/DL (14.2-18.0) 8.8 G/DL (14.2-18.0) Hematocrit 26.2 % (42.0-52.0) 27.0 % (42.0-52.0) Mean Corpuscular Volume 94 FL (80-99) 93 FL (80-99) Mean Corpuscular Hemoglobin 29.9 PG (27.0-31.0) 30.4 PG (27.0-31.0) Mean Corpuscular Hemoglobin Concent 31.8 G/DL (32.0-36.0) 32.6 G/DL (32.0-36.0) Red Cell Distribution Width 15.7 % (11.6-14.8) 16.2 % (11.6-14.8) Platelet Count 464 K/UL (150-450) 459 K/UL (150-450) Mean Platelet Volume 5.7 FL (6.5-10.1) 5.5 FL (6.5-10.1) Neutrophils (%) (Auto) 68.6 % (45.0-75.0) 68.4 % (45.0-75.0) Lymphocytes (%) (Auto) 14.9 % (20.0-45.0) 14.3 % (20.0-45.0) Monocytes (%) (Auto) 12.5 % (1.0-10.0) 14.3 % (1.0-10.0) Eosinophils (%) (Auto) 3.5 % (0.0-3.0) 1.8 % (0.0-3.0) Basophils (%) (Auto) 0.6 % (0.0-2.0) 1.1 % (0.0-2.0) Prothrombin Time 12.0 SEC (9.30-11.50) Prothromb Time International Ratio 1.1 (0.9-1.1) Activated Partial Thromboplast Time 32 SEC (23-33) Sodium Level 142 mEQ/L (135-145) 141 mEQ/L (135-145) Potassium Level 4.1 mEQ/L (3.4-4.9) 3.1 mEQ/L (3.4-4.9) Chloride Level 102 mEQ/L (98-107) 103 mEQ/L (98-107) Carbon Dioxide Level 27 mEQ/L (20-30) 28 mEQ/L (20-30) Anion Gap 13 (5-15) 10 (5-15) Blood Urea Nitrogen 18 mg/dL (7-23) 16 mg/dL (7-23) Creatinine 0.6 mg/dL (0.7-1.2) 0.7 mg/dL (0.7-1.2) Estimat Glomerular Filtration Rate > 60 mL/min (>60) > 60 mL/min (>60) Glucose Level 84 mg/dL (74-106) 122 mg/dL (74-106) Calcium Level 9.3 mg/dL (8.6-10.2) 10.6 mg/dL (8.6-10.2) Phosphorus Level 3.5 mg/dL (2.5-4.8) 3.1 mg/dL (2.5-4.8) Magnesium Level 1.8 mg/dL (1.7-2.5) 1.8 mg/dL (1.7-2.5) Total Bilirubin 0.2 mg/dL (0.0-1.2) < 0.2 mg/dL (0.0-1.2) Aspartate Amino Transf (AST/SGOT) 17 U/L (5-40) 15 U/L (5-40) Alanine Aminotransferase (ALT/SGPT) 29 U/L (3-41) 23 U/L (3-41) Alkaline Phosphatase 155 U/L (40-129) 149 U/L (40-129) Total Protein 7.0 g/dL (6.6-8.7) 7.1 g/dL (6.6-8.7) Albumin 2.7 g/dL (3.5-5.2) 2.6 g/dL (3.5-5.2) Globulin 4.3 g/dL 4.5 g/dL Albumin/Globulin Ratio 0.6 (1.0-2.7) 0.5 (1.0-2.7) Vancomycin Level Trough 28.3 ug/mL (5.0-12.0) Test 08/05/17 03:30 White Blood Count 10.4 K/UL (4.8-10.8) Red Blood Count 3.03 M/UL (4.70-6.10) Hemoglobin 9.0 G/DL (14.2-18.0) Hematocrit 28.6 % (42.0-52.0) Mean Corpuscular Volume 94 FL (80-99) Mean Corpuscular Hemoglobin 29.7 PG (27.0-31.0) Mean Corpuscular Hemoglobin Concent 31.4 G/DL (32.0-36.0) Red Cell Distribution Width 16.5 % (11.6-14.8) Platelet Count 487 K/UL (150-450) Mean Platelet Volume 5.3 FL (6.5-10.1) Neutrophils (%) (Auto) 63.7 % (45.0-75.0) Lymphocytes (%) (Auto) 21.3 % (20.0-45.0) Monocytes (%) (Auto) 12.4 % (1.0-10.0) Eosinophils (%) (Auto) 2.2 % (0.0-3.0) Basophils (%) (Auto) 0.5 % (0.0-2.0) Sodium Level 147 mEQ/L (135-145) Potassium Level 3.3 mEQ/L (3.4-4.9) Chloride Level 106 mEQ/L (98-107) Carbon Dioxide Level 27 mEQ/L (20-30) Anion Gap 14 (5-15) Blood Urea Nitrogen 17 mg/dL (7-23) Creatinine 0.7 mg/dL (0.7-1.2) Estimat Glomerular Filtration Rate > 60 mL/min (>60) Glucose Level 97 mg/dL (74-106) Calcium Level 9.4 mg/dL (8.6-10.2) Total Bilirubin 0.2 mg/dL (0.0-1.2) Aspartate Amino Transf (AST/SGOT) 17 U/L (5-40) Alanine Aminotransferase (ALT/SGPT) 20 U/L (3-41) Alkaline Phosphatase 142 U/L (40-129) Pro-B-Type Natriuretic Peptide 1454 pg/mL (0-125) Total Protein 7.3 g/dL (6.6-8.7) Albumin 3.1 g/dL (3.5-5.2) Globulin 4.2 g/dL Albumin/Globulin Ratio 0.7 (1.0-2.7) Random Vancomycin Level 22.3 ug/mL Rhythm Strip Diag. Results EP Interpretation: yes Rate: 67 Rhythm: NSR, no PVC's, no ectopy Chest X-Ray Diagnostic Results Chest X-Ray Diagnostic Results : Chest X-Ray Ordered: Yes # of Views/Limited/Complete: 1 View Indication: Chest Pain EP Interpretation: Yes Interpretation: no consolidation, no pneumothorax, no acute cardiopulmonary disease, other - Right lower lobe atelectasis versus other Impression: No acute disease Electronically Signed by: Kayla Parkinson DO Last Vital Signs Date Time Temp Pulse Resp B/P (MAP) Pulse Ox O2 Delivery O2 Flow Rate FiO2 08/01/17 10:21 97.1 92 19 103/66 98 Room Air 30 Status: improved Disposition: ADMITTED INPATIENT Condition: Serious KAYLA PARKINSON D.O. Aug 01, 2017 10:31
[2017-08-01] MEDS ORDERED: JEVITY 1.2 CA1500 ML GT (10:36)
[2017-08-01] MEDS ORDERED: TRAMADOL HCL50 MG GT (10:38)
[2017-08-01] MEDS ORDERED: NORCO 5-325 TA1 EAC1 GT (10:40)
[2017-08-01 10:55] LABS: BASOPHILS % (AUTO) 0.9 % (0.0-2.0); EOSINOPHILS % (AUTO) 5.9 % (0.0-3.0); MEAN CORPUSCULAR HEMOGLOBIN 29.9 PG (27.0-31.0); MEAN CORPUSCULAR HGB CONC 31.8 G/DL (32.0-36.0); MEAN CORPUSCULAR VOLUME 94 FL (80-99); MEAN PLATELET VOLUME 5.6 FL (6.5-10.1); MONOCYTES % (AUTO) 9.6 % (1.0-10.0); NEUTROPHILS % (AUTO) 73.5 % (45.0-75.0); PLATELET COUNT 503 K/UL (150-450); WHITE BLOOD COUNT 10.5 K/UL (4.8-10.8)
[2017-08-01 11:00] LABS: APPEARANCE,URINE CLEAR; KETONES,URINE NEGATIVE (NEGATIVE); LEUKOCYTE ESTERASE ,URINE 1+ (NEGATIVE); NITRITE,URINE NEGATIVE (NEGATIVE); PH,URINE 7 (4.5-8.0); PROTEIN,URINE 2+ (NEGATIVE); UROBILINOGEN,URINE NORMAL MG/DL (0.0-1.0)
[2017-08-01 11:10] LABS: TROPONIN I < 0.30 ng/mL (<=0.30)
[2017-08-01 11:13] LABS: ALANINE AMINOTRANSFERASE 43 U/L (3-41); ALBUMIN/GLOBULIN RATIO 0.5 (1.0-2.7); ANION GAP 11 (5-15); ASPARTATE AMINO TRANSFERASE 38 U/L (5-40); CALCIUM 9.1 mg/dL (8.6-10.2); CARBON DIOXIDE 28 mEQ/L (20-30); CHLORIDE 95 mEQ/L (98-107); CREATININE 0.6 mg/dL (0.7-1.2); GLOMERULAR FILTRATION RATE > 60 mL/min (>60); HEMOLYSIS 45; POTASSIUM 4.8 mEQ/L (3.4-4.9); SODIUM 134 mEQ/L (135-145)
[2017-08-01 11:23] LABS: CKMB 3.3 ng/mL (< 6.7)
[2017-08-01 11:25] LABS: BACTERIA,URINE FEW /HPF; SQUAMOUS EPITHELIAL CELL,UR FEW /LPF (NONE/OCC)
[2017-08-01 12:39] VITALS: BP 106/62
--- NOTE | 2017-08-01 12:51 | Diagnostic Imaging Report ---
Indication: CP shortness of breath Technique: One view of the chest Comparison: 07/14/2017 Findings: Questionable patchy opacities seen at the right lung base. The remainder the lungs are clear. The pleural spaces are clear. Heart size is normal. Tracheostomy, AICD remain Impression: Questionable right basilar patchy infiltrate Other findings as noted
[2017-08-01] MEDS ORDERED: LORazepam Inj 2mg/ml 1ml IV PRN (13:00)
[2017-08-01] MEDS ORDERED: DuoNeb 0.5-3(2.5)mg/3ml neb HHN PRN (13:00)
[2017-08-01] MEDS ORDERED: Miralax 17gm pkt GT PRN (13:00)
[2017-08-01] MEDS: Piperacillin/Tazobactam 3.375 GM in NS 110 ML IVPB SCH ×2 (15:44→21:49)
[2017-08-01 16:00] VITALS: BP 131/57
--- NOTE | 2017-08-01 18:17 | History and Physical ---
History of Present Illness General Date patient seen: Aug 01, 2017 Reason for Hospitalization: Abnormal Labs Present Illness HPI 57 year old male with hx of chronic respiratory failure, s/p trach, peg, presented with complaints of abnormal blood work Patient was found to have elevated white blood for count. Also found to be anemic. He is admitted for further evaluation. Allergies: Coded Allergies: No Known Allergies (Unverified , 03/07/17) Medication History Scheduled Amiodarone Hcl (Amiodarone Hcl), 200 MG GT DAILY, (Reported) Aspirin* (Aspir 81*), 81 MG GT DAILY, (Reported) Carvedilol (Coreg), 3.125 MG GT Q12HR Folic Acid* (Folic Acid*), 1 MG ORAL DAILY, (Reported) Furosemide* (Lasix*), 60 MG GT DAILY, (Reported) Heparin Sod (Porcine) (Heparin Sodium*), 5,000 UNITS SUBQ EVERY 12 HOURS, ( Reported) Lactulose (Lactulose*), 30 ML GT BID, (Reported) Levetiracetam (Keppra), 500 MG GT Q12HR Lisinopril* (Lisinopril*), 10 MG GT DAILY, (Reported) Omeprazole (Omeprazole), 40 MG GT DAILY, (Reported) Potassium (Potassium), 40 MG GT BID, (Reported) Warfarin Sod (Coumadin*), 8 MG GT DAILY, (Reported) Zinc Sulfate (Zinc Sulfate*), 220 MG ORAL DAILY, (Reported) Scheduled PRN Clonidine Hcl (Clonidine Hcl), 0.1 MG PO Q6HR PRN for For High Blood Pressure, ( Reported) Hydrocodone Bit/Acetaminophen 5-325* ([place] 5-325 Tablet*), 1 TAB GT Q4H PRN for For Pain, (Reported) Ondansetron* (Zofran*), 4 MG GT Q6H PRN for Nausea & Vomiting, (Reported) Polyethylene Glycol 3350* (Miralax*), 17 GM GT DAILY PRN for Constipation, ( Reported) Tramadol Hcl* (Ultram*), 50 MG GT Q6H PRN for For Pain, (Reported) Miscellaneous Medications Lactose-Reduced Food/Fiber (Jevity 1.2 Simone Liquid), 1,300 ML GT, (Reported) Discontinued Medications Hgqksbkvpinq-Hzdl-Mszqjfos,Iso (Zosyn 3.375 Gm Pre Mix-Bag), 3.375 GM IVPB EVERY 8 HOURS Discontinued Reason: Therapy completed Vancomycin Hcl/D5w (Vancomycin-D5w 1 G/250 Ml), 2 GM IVPB Q24H Discontinued Reason: Therapy completed Patient History Healthcare decision maker Resuscitation status Full Code Advanced Directive on File Past Medical/Surgical History Past Medical/Surgical History: (1) EF of 30 (2) Feeding by G-tube (3) Atrial fibrillation (4) Anemia Review of Systems All Other Systems: negative except mentioned in HPI Physical Exam General Appearance: cachetic Lines, tubes and drains: peripheral HEENT: normocephalic, atraumatic Neck: non-tender, normal alignment Respiratory/Chest: chest wall non-tender, lungs clear Breasts: no masses Cardiovascular/Chest: normal peripheral pulses Abdomen: normal bowel sounds, non tender Genitourinary/Rectal: normal genital exam, normal rectal exam Extremities: normal range of motion, non-tender Skin Exam: normal pigmentation Neurologic: supply teacher 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 normal Lymphatic: anterior cervical Last 24 Hour Vital Signs Date Time Temp Pulse Resp B/P (MAP) Pulse Ox O2 Delivery O2 Flow Rate FiO2 08/01/17 17:07 101 20 35 08/01/17 16:00 96 08/01/17 16:00 97.9 91 18 131/57 100 Mechanical Ventilator 35 08/01/17 15:06 95 19 35 08/01/17 14:24 35 08/01/17 14:06 89 18 35 08/01/17 13:36 97.1 89 18 106/62 100 Room Air 35 08/01/17 12:39 97.1 89 18 106/62 100 Room Air 35 08/01/17 10:30 88 17 35 08/01/17 10:21 97.1 92 19 103/66 98 Room Air 30 08/01/17 10:11 97.2 80 20 158/82 99 Mechanical Ventilator 30 Laboratory Tests Test 08/01/17 10:00 08/01/17 10:10 White Blood Count 10.5 K/UL (4.8-10.8) Red Blood Count 2.90 M/UL (4.70-6.10) L Hemoglobin 8.7 G/DL (14.2-18.0) L Hematocrit 27.3 % (42.0-52.0) L Mean Corpuscular Volume 94 FL (80-99) Mean Corpuscular Hemoglobin 29.9 PG (27.0-31.0) Mean Corpuscular Hemoglobin Concent 31.8 G/DL (32.0-36.0) L Red Cell Distribution Width 16.0 % (11.6-14.8) H Platelet Count 503 K/UL (150-450) H Mean Platelet Volume 5.6 FL (6.5-10.1) L Neutrophils (%) (Auto) 73.5 % (45.0-75.0) Lymphocytes (%) (Auto) 10.0 % (20.0-45.0) L Monocytes (%) (Auto) 9.6 % (1.0-10.0) Eosinophils (%) (Auto) 5.9 % (0.0-3.0) H Basophils (%) (Auto) 0.9 % (0.0-2.0) Sodium Level 134 mEQ/L (135-145) L Potassium Level 4.8 mEQ/L (3.4-4.9) Chloride Level 95 mEQ/L (98-107) L Carbon Dioxide Level 28 mEQ/L (20-30) Anion Gap 11 (5-15) Blood Urea Nitrogen 25 mg/dL (7-23) H Creatinine 0.6 mg/dL (0.7-1.2) L Estimat Glomerular Filtration Rate > 60 mL/min (>60) Glucose Level 103 mg/dL (74-106) Lactic Acid Level 1.50 mmol/L (0.66-2.22) Calcium Level 9.1 mg/dL (8.6-10.2) Total Bilirubin < 0.2 mg/dL (0.0-1.2) Aspartate Amino Transf (AST/SGOT) 38 U/L (5-40) Alanine Aminotransferase (ALT/SGPT) 43 U/L (3-41) H Alkaline Phosphatase 169 U/L (40-129) H Total Creatine Kinase 41 U/L (38-174) Creatine Kinase MB 3.3 ng/mL (< 6.7) Creatine Kinase MB Relative Index 8.0 Troponin I < 0.30 ng/mL (<=0.30) Total Protein 7.0 g/dL (6.6-8.7) Albumin 2.4 g/dL (3.5-5.2) L Globulin 4.6 g/dL Albumin/Globulin Ratio 0.5 (1.0-2.7) L Urine Color Pale yellow Urine Appearance Clear Urine pH 7 (4.5-8.0) Urine Specific [place] 1.005 (1.005-1.035) Urine Protein 2+ (NEGATIVE) H Urine Glucose (UA) Negative (NEGATIVE) Urine Ketones Negative (NEGATIVE) Urine Occult Blood 2+ (NEGATIVE) H Urine Nitrite Negative (NEGATIVE) Urine Bilirubin Negative (NEGATIVE) Urine Urobilinogen Normal MG/DL (0.0-1.0) Urine Leukocyte Esterase 1+ (NEGATIVE) H Urine RBC 10-15 /HPF (0 - 0) H Urine WBC 2-4 /HPF (0 - 0) Urine Squamous Epithelial Cells Few /LPF (NONE/OCC) Urine Bacteria Few /HPF (NONE) Height (Feet): 5 Height (Inches): 9.00 Weight (Pounds): 124 Medications Current Medications Medications (Trade) Dose Ordered Sig/Tameka Route PRN Reason Start Time Stop Time Status Last Admin Dose Admin Acetaminophen (Tylenol) 650 mg Q4H PRN ORAL FEVER 08/01/17 13:00 08/31/17 12:59 Albuterol/ Ipratropium (DuoNeb 0.5-3(2.5)mg/3ml) 3 ml Q4H PRN HHN Shortness of Breath 08/01/17 13:00 08/06/17 12:59 Amiodarone HCl (Cordarone) 200 mg DAILY GT 08/02/17 09:00 09/01/17 08:59 Carvedilol (Coreg) 3.125 mg Q12HR GT 08/01/17 21:00 08/31/17 20:59 Dextrose (Dextrose 50%) STAT PRN IV Hypoglycemia 08/01/17 13:00 08/31/17 12:59 Furosemide (Lasix) 60 mg DAILY GT 08/02/17 09:00 09/01/17 08:59 Heparin Sodium (Porcine) (Heparin 5000 units/ml) 5,000 units EVERY 12 HOURS SUBQ 08/01/17 21:00 08/31/17 20:59 Lansoprazole (Prevacid) 30 mg DAILY GT 08/02/17 09:00 09/01/17 08:59 Levetiracetam (Keppra) 500 mg Q12HR GT 08/01/17 21:00 08/31/17 20:59 Lisinopril (Zestril) 10 mg DAILY GT 08/02/17 09:00 09/01/17 08:59 Lorazepam (Ativan 2mg/ml 1ml) 2 mg Q2H PRN IV For Anxiety 08/01/17 13:00 08/08/17 12:59 Morphine Sulfate (Morphine Sulfate) 4 mg Q4H PRN IVP Severe Pain (Pain Scale 7-10) 08/01/17 13:00 08/08/17 12:59 Ondansetron HCl (Zofran) 4 mg Q6H PRN IVP Nausea & Vomiting 08/01/17 13:00 08/31/17 12:59 Piperacillin Sod/ Tazobactam Sod 3.375 gm/Sodium Chloride 110 ml @ 27.5 mls/hr Q8HR IVPB 08/01/17 15:00 08/08/17 14:59 08/01/17 15:44 Polyethylene Glycol (Miralax) 17 gm DAILYPRN PRN GT Constipation 08/01/17 13:00 08/31/17 12:59 Vancomycin HCl (Vanco rx to dose) 1 ea DAILYPRN PRN MISC RX TO DOSE PROTOCOL 08/01/17 14:15 08/31/17 14:14 Vancomycin/Sodium Chloride 250 ml @ 166.667 mls/hr Q24H IVPB 08/02/17 18:00 08/07/17 17:59 Assessment/Plan Problem List: (1) Leukocytosis ICD Codes: D72.829 - Elevated white blood cell count, unspecified SNOMED: 398274297, 159940772 (2) Acute on chronic respiratory failure ICD Codes: J96.20 - Acute and chronic respiratory failure, unspecified whether with hypoxia or hypercapnia SNOMED: 74030994, 43663559 (3) Atrial fibrillation ICD Codes: I48.91 - Unspecified atrial fibrillation SNOMED: 06816550 (4) EF of 30 (5) Feeding by G-tube ICD Codes: Z93.1 - Gastrostomy status SNOMED: 101363577, 107576470 (6) Anemia ICD Codes: D64.9 - Anemia, unspecified SNOMED: 335623359 Respiratory: monitor respiratory rate, adjust FIO2, CXR Cardiac: continue to monitor HR/BP Renal: F/U I&O Infectious Disease: check cultures, continue antibiotics Gastrointestinal: continue feedings/current rate Endocrine: monitor blood sugar, check TSH Hematologic: monitor H/H, transfuse if hgb<8.5 Neurologic: PRN Morphine, keep patient comfortable Affect: PRN ativan Notes Reviewed: staff research scientist, cardio, renal Discussed with: consultants, case coordinator ODETTE SMILEY Aug 01, 2017 18:17
[2017-08-01 20:00] VITALS: BP 108/68
[2017-08-01] MEDS: levETIRAcetam 500mg/5ml Liquid GT SCH (20:54)
[2017-08-01] MEDS: Heparin 5000 units/ml inj SUBQ SCH (20:57)
[2017-08-02] VITALS: BP 110/65
[2017-08-02 03:44] LABS: BASOPHILS % (AUTO) 0.6 % (0.0-2.0); EOSINOPHILS % (AUTO) 7.2 % (0.0-3.0); LYMPHOCYTES % (AUTO) 15.8 % (20.0-45.0); MEAN CORPUSCULAR HEMOGLOBIN 29.5 PG (27.0-31.0); MEAN CORPUSCULAR HGB CONC 31.7 G/DL (32.0-36.0); MEAN CORPUSCULAR VOLUME 93 FL (80-99); MEAN PLATELET VOLUME 5.3 FL (6.5-10.1); NEUTROPHILS % (AUTO) 65.5 % (45.0-75.0); PLATELET COUNT 462 K/UL (150-450); RED BLOOD COUNT 2.87 M/UL (4.70-6.10); RED CELL DISTRIBUTION WIDTH 16.3 % (11.6-14.8); WHITE BLOOD COUNT 10.4 K/UL (4.8-10.8)
[2017-08-02 03:59] LABS: INR 1.1 (0.9-1.1); PROTHROMBIN TIME 11.1 SEC (9.30-11.50)
[2017-08-02 04:00] VITALS: BP 100/65
[2017-08-02 04:02] LABS: HEMOLYSIS 0; IRON 24 ug/dL (59-158); LACTATE DEHYDROGENASE 114 U/L (135-230); TOTAL IRON BINDING CAPACITY 152 ug/dL (250-400)
[2017-08-02 04:09] LABS: PATH BLOOD SMEAR/OMC SENT TO PATHOLOGIST
[2017-08-02 04:37] LABS: ANION GAP 10 (5-15); CALCIUM 9.1 mg/dL (8.6-10.2); CARBON DIOXIDE 27 mEQ/L (20-30); CHLORIDE 97 mEQ/L (98-107); CREATININE 0.5 mg/dL (0.7-1.2); GLOMERULAR FILTRATION RATE > 60 mL/min (>60); HEMOLYSIS 1; PHOSPHORUS 2.9 mg/dL (2.5-4.8); POTASSIUM 3.9 mEQ/L (3.4-4.9); SODIUM 134 mEQ/L (135-145)
[2017-08-02 05:07] LABS: RETICULOCYTE COUNT 1.2 % (0.0-2.0)
[2017-08-02 05:18] LABS: ERYTHROCYTE SEDIMENTATION RATE 130 MM/HR (0-20)
[2017-08-02] MEDS: Piperacillin/Tazobactam 3.375 GM in NS 110 ML IVPB SCH ×3 (06:18→21:11)
[2017-08-02 07:46] VITALS: BP_SYST 106; BP_SYST 145; BP_DIAS 71; BP_DIAS 76
[2017-08-02] MEDS: Lisinopril 10mg tab GT SCH (09:00)
[2017-08-02] MEDS: Furosemide 40mg tab GT SCH (09:34)
[2017-08-02] MEDS: Amiodarone 200mg tab GT SCH (09:34)
[2017-08-02] MEDS: Heparin 5000 units/ml inj SUBQ SCH ×2 (09:36→21:15)
[2017-08-02] MEDS: levETIRAcetam 500mg/5ml Liquid GT SCH ×2 (09:36→21:11)
--- NOTE | 2017-08-02 11:28 | General Progress Note ---
Progress Note Progress Note Chart reviewed, pt examined, consult dictated. Impression: healed midline wound from G-tube placement, healed retention sutures, retention bridges d/c'd. Plan: need for surgical intervention. Joseph Bobby MD Aug 02, 2017 11:28
[2017-08-02 12:10] VITALS: BP 108/67
--- NOTE | 2017-08-02 12:57 | Pulmonology Progress Note ---
Assessment/Plan Problems: (1) Leukocytosis (2) Acute on chronic respiratory failure (3) Atrial fibrillation (4) EF of 30 (5) Feeding by G-tube (6) Anemia Respiratory: monitor respiratory rate, adjust FIO2 Cardiac: continue to monitor HR/BP Renal: F/U I&O Infectious Disease: check cultures Gastrointestinal: continue feedings/current rate Endocrine: monitor blood sugar, continue sliding scale insulin Hematologic: monitor H/H, transfuse if hgb<8.5 Neurologic: PRN Ativan, keep patient comfortable Affect: PRN ativan Notes Reviewed: cash processor Subjective ROS Limited/Unobtainable: No Constitutional: Reports: no symptoms HEENT: Repors: no symptoms Respiratory: Reports: no symptoms Allergies: Coded Allergies: No Known Allergies (Unverified , 03/07/17) Objective Last 24 Hour Vital Signs Date Time Temp Pulse Resp B/P (MAP) Pulse Ox O2 Delivery O2 Flow Rate FiO2 08/02/17 12:10 98.5 96 16 108/67 100 Mechanical Ventilator 35 08/02/17 12:00 101 08/02/17 12:00 35 08/02/17 11:15 97 16 35 08/02/17 09:15 98 16 35 08/02/17 09:00 106/71 08/02/17 09:00 111 106/71 08/02/17 08:00 35 08/02/17 08:00 105 08/02/17 07:46 99.1 111 18 106/71 100 Mechanical Ventilator 35 08/02/17 07:15 94 16 35 08/02/17 05:14 105 20 35 08/02/17 04:00 35 08/02/17 04:00 106 08/02/17 04:00 97.9 106 18 100/65 99 Mechanical Ventilator 35 08/02/17 03:26 96 19 35 08/02/17 01:28 100 18 35 08/02/17 00:00 97.6 103 18 110/65 99 Mechanical Ventilator 35 08/02/17 00:00 90 08/01/17 23:23 90 20 35 08/01/17 21:05 105 21 35 08/01/17 20:55 103 108/68 08/01/17 20:27 35 08/01/17 20:00 102 08/01/17 20:00 97.5 103 18 108/68 99 Mechanical Ventilator 35 08/01/17 19:10 103 18 35 08/01/17 17:07 101 20 35 08/01/17 16:00 96 08/01/17 16:00 97.9 91 18 131/57 100 Mechanical Ventilator 35 08/01/17 15:06 95 19 35 08/01/17 14:24 35 08/01/17 14:06 89 18 35 08/01/17 13:36 97.1 89 18 106/62 100 Room Air 35 Intake and Output 08/02/17 08/03/17 19:00 07:00 Intake Total 110 ml Balance 110 ml Intake Free Water 50 ml Tube Feeding 60 ml General Appearance: cachetic HEENT: normocephalic, atraumatic Respiratory/Chest: chest wall non-tender, lungs clear Cardiovascular: normal peripheral pulses, normal rate Abdomen: normal bowel sounds, soft, non tender Genitourinary: normal external genitalia Skin: no rash Laboratory Tests 08/02/17 03:20: White Blood Count 10.4, Red Blood Count 2.87L, Hemoglobin 8.5L, Hematocrit 26.7L , Mean Corpuscular Volume 93, Mean Corpuscular Hemoglobin 29.5, Mean Corpuscular Hemoglobin Concent 31.7L, Red Cell Distribution Width 16.3H, Platelet Count 462H, Mean Platelet Volume 5.3L, Neutrophils (%) (Auto) 65.5, Lymphocytes (%) (Auto) 15.8L, Monocytes (%) (Auto) 11.0H, Eosinophils (%) (Auto ) 7.2H, Basophils (%) (Auto) 0.6, Erythrocyte Sedimentation Rate 130H, Reticulocyte Count 1.2, Prothrombin Time 11.1, Prothromb Time International Ratio 1.1, Activated Partial Thromboplast Time 33, Sodium Level 134L, Potassium Level 3.9, Chloride Level 97L, Carbon Dioxide Level 27, Anion Gap 10, Blood Urea Nitrogen 20, Creatinine 0.5L, Estimat Glomerular Filtration Rate > 60, Glucose Level 80, Calcium Level 9.1, Phosphorus Level 2.9, Iron Level 24L, Total Iron Binding Capacity 152L, Percent Iron Saturation 16, Unsaturated Iron Binding 128, Lactate Dehydrogenase 114L, Albumin 2.5L, Carcinoembryonic Antigen 9.2H, Vitamin B12 Level 887, Folate [Pending] Current Medications Medications (Trade) Dose Ordered Sig/Tameka Route PRN Reason Start Time Stop Time Status Last Admin Dose Admin Acetaminophen (Tylenol) 650 mg Q4H PRN ORAL FEVER 08/01/17 13:00 08/31/17 12:59 Albuterol/ Ipratropium (DuoNeb 0.5-3(2.5)mg/3ml) 3 ml Q4H PRN HHN Shortness of Breath 08/01/17 13:00 08/06/17 12:59 Amiodarone HCl (Cordarone) 200 mg DAILY GT 08/02/17 09:00 09/01/17 08:59 08/02/17 09:34 Carvedilol (Coreg) 3.125 mg Q12HR GT 08/01/17 21:00 08/31/17 20:59 08/01/17 20:55 Dextrose (Dextrose 50%) STAT PRN IV Hypoglycemia 08/01/17 13:00 08/31/17 12:59 Furosemide (Lasix) 60 mg DAILY GT 08/02/17 09:00 09/01/17 08:59 08/02/17 09:34 Heparin Sodium (Porcine) (Heparin 5000 units/ml) 5,000 units EVERY 12 HOURS SUBQ 08/01/17 21:00 08/31/17 20:59 08/02/17 09:36 Lansoprazole (Prevacid) 30 mg DAILY GT 08/02/17 09:00 09/01/17 08:59 08/02/17 09:34 Levetiracetam (Keppra) 500 mg Q12HR GT 08/01/17 21:00 08/31/17 20:59 08/02/17 09:36 Lisinopril (Zestril) 10 mg DAILY GT 08/02/17 09:00 09/01/17 08:59 Lorazepam (Ativan 2mg/ml 1ml) 2 mg Q2H PRN IV For Anxiety 08/01/17 13:00 08/08/17 12:59 Morphine Sulfate (Morphine Sulfate) 4 mg Q4H PRN IVP Severe Pain (Pain Scale 7-10) 08/01/17 13:00 08/08/17 12:59 Ondansetron HCl (Zofran) 4 mg Q6H PRN IVP Nausea & Vomiting 08/01/17 13:00 08/31/17 12:59 Piperacillin Sod/ Tazobactam Sod 3.375 gm/Sodium Chloride 110 ml @ 27.5 mls/hr Q8HR IVPB 08/01/17 15:00 08/08/17 14:59 08/02/17 06:18 Polyethylene Glycol (Miralax) 17 gm DAILYPRN PRN GT Constipation 08/01/17 13:00 08/31/17 12:59 Vancomycin HCl (Vanco rx to dose) 1 ea DAILYPRN PRN MISC RX TO DOSE PROTOCOL 08/01/17 14:15 08/31/17 14:14 Vancomycin/Sodium Chloride 250 ml @ 166.667 mls/hr Q24H IVPB 08/02/17 18:00 08/07/17 17:59 ODETTE SMILEY Aug 02, 2017 12:57
[2017-08-02 16:00] VITALS: BP 115/76
[2017-08-02] MEDS ORDERED: Tubing IV Secondary IV ONE (16:13)
[2017-08-02] MEDS ORDERED: NS 275ml ONE (16:13)
--- NOTE | 2017-08-02 18:45 | Consultation ---
Consult Note Consult Note ID CONSULT: Amanda# [id number] Assessment/Plan ASSESSMENT: // Possible recurrent HCAP / VAP - SCx pending - CXR 08/01: Questionable right basilar patchy infiltrate - h/o MDR-ACB, KPC, Providencia, XDR Pseudomonas // Chronic sacrococcygeal osteomyelitis - previous evaluation by surgery deemed not a surgical candidate - CT with contrast--some sacral/coccygeal erosion, but no abscess. no profound progression. - h/o MDR ACB, C albicans, and KPC (sensitive only to colistin) // Multiple decubiti POA, not grossly infected // h/o Coag neg staph RUE PICC associated bacteremia r/o recurrence - surveillance BCx pending // h/o MDR Klebsiella and zosyn resistant Pseudomonas asymptomatic bacteriuria r /o recurrence - surveillance UA(-) // HCV Ab+, no transaminitis currently // Negative HIV // Afebrile without leukocytosis Chronic VDRF SP trach, PEG Chronic anoxic encephalopathy SP cardiac arrest Elevated ESR - worse Reactive thrombocytosis Cachexia with elevated CEA, normal PSA Acute on chronic anemia Sinus tachycardia Chronic systolic CHF, EF 30% SP AICD Paroxysmal Afib Usp resident MDRO colonized NKDA Full code PLAN: --Continue empiric IV vancomycin, zosyn d#2 pending cultures --f/u cultures --monitor CBC, temperatures --monitor BMP --Monitor CXR --Ventilatory support, tracheostomy care, aspiration precautions. --wound care Thanks! Will follow ROXANNE BELLO Aug 02, 2017 18:45
[2017-08-02] MEDS: Vancomycin 750mg/NS 250ml 250 ML IVPB SCH (18:46)
[2017-08-02 20:00] VITALS: BP 117/80
--- NOTE | 2017-08-02 22:00 | Consultation ---
DATE OF CONSULTATION: 08/02/2017 SURGICAL CONSULTATION CONSULTING PHYSICIAN: Joseph Bobby M.D. REASON FOR CONSULTATION: Evaluation of abdominal tubes. History Of Present Illness: This 57-year-old bedridden male was admitted to the hospital because of abnormal laboratory studies and elevated white blood count as well as anemia. The patient has a tracheostomy in place and is nonverbal. His past history is significant for encephalopathy. He has a history of atrial fibrillation and is ventilator dependent. The patient had a previous gastrostomy tube, which appears to be functioning well. He was found to have 2 other tubes on the right side of the abdomen. ALLERGIES: None known. Medications: Amiodarone 100 mg tablet 2 tablets twice a day, aspirin 81 mg daily, carvedilol 3.125 mg b.i.d., clonidine 0.1 mg q.6 h. p.r.n. systolic blood pressure greater than 150, folic acid 1 mg daily, Lasix 60 mg daily, lactulose 30 mL via G-tube b.i.d., Keppra 500 mg q.12 h., lisinopril 10 mg daily, omeprazole 40 mg daily, tramadol 50 mg q.6 h. p.r.n. pain, Coumadin 7.5 mg daily, and zinc sulfate 220 mg daily. FAMILY HISTORY: Unobtainable. REVIEW OF SYSTEMS: Unobtainable. PHYSICAL EXAMINATION: General: A bedridden male, who is awake, but nonverbal. HEENT: Normocephalic. Pupils are equal and reactive to light. There was no scleral icterus. NECK: Supple. There is a tracheostomy tube in place. LUNGS: Clear. HEART: Showed a regular rhythm. Abdomen: Soft. There is a gastrostomy tube in the left upper quadrant. There is a healed midline wound. Traversing the midline wound are 2 red Burrell catheter retention-suture bridges. The retention sutures were removed as were the bridges. The midline wound is well healed. EXTREMITIES: Showed flexion contractures of both lower extremities. IMPRESSION: 1. Bedridden state secondary to encephalopathy. 2. Functioning gastrostomy tube. 3. Healed midline wound from his gastrostomy placement. 4. Healed retention sutures. PLAN: There is no need for surgical intervention at this time. Joseph Bobby M.D. DR: NIKKO JOB#: [id number] CC:
[2017-08-02] MEDS ORDERED: Vancomycin 1 GM in D5W 275 ML IV SCH (23:00)
[2017-08-03] VITALS: BP 110/80
--- NOTE | 2017-08-03 01:00 | Consultation ---
DATE OF CONSULTATION: 08/02/2017 INFECTIOUS DISEASES CONSULTATION CONSULTING PHYSICIAN: Zev Wells M.D. REQUESTING PHYSICIAN: Shani Moses M.D. REASON FOR CONSULTATION: Possible infection. History Of Present Illness: This is a 57-year-old male, retirement resident, with history of chronic anoxic encephalopathy and chronic ventilator-dependent respiratory failure, who was sent to the emergency room on 08/01/2017 for evaluation of abnormal laboratories including anemia and leukocytosis. Leukocytosis not appreciated on repeat laboratory draw here. Hemoglobin is 8.5. Urinalysis is benign. Blood and sputum cultures are pending and chest x-ray shows possible right basilar patchy infiltrate. The patient has been started on empiric IV vancomycin and Zosyn and ID now consulted to assist in management. PAST MEDICAL HISTORY: 1. Seizure disorder. 2. Chronic ventilator-dependent respiratory failure, status post trach and PEG. 3. Chronic anoxic encephalopathy, status post cardiac arrest. 4. Chronic systolic congestive heart failure with an ejection fraction of 30%, status post AICD. 5. Paroxysmal atrial fibrillation. 6. Anemia of chronic disease. 7. Chronic sacrococcygeal osteomyelitis, previously determined not a surgical candidate. 8. History of multidrug-resistant polymicrobial infection. 9. History of coagulase-negative Staph, PICC line associated bacteremia. 10. Hepatitis C antibody positive. PAST SURGICAL HISTORY: 1. Tracheostomy. 2. PEG tube placement. 3. AICD placement. ALLERGIES: No known drug allergies. MEDICATIONS: 1. Vancomycin day #2. 2. Zosyn day #2. 3. Amiodarone. 4. Lasix. 5. Lisinopril. 6. Prevacid. 7. Coreg. 8. Keppra. 9. Subcutaneous heparin. FAMILY HISTORY: Unknown. Social History: The patient is a resident of a retirement. No active tobacco, alcohol, or illicit drug abuse. REVIEW OF SYSTEMS: Unable to obtain. PHYSICAL EXAMINATION: Vital Signs: Maximum temperature 99.1, blood pressure 115/76, heart rate 101, respiratory rate 16, and saturation 100% on 35% FiO2. GENERAL: No apparent distress, nontoxic appearing. HEENT: Tracheostomy tube in place. CARDIOVASCULAR: Regular rate and rhythm. No murmurs. PULMONARY: Coarse breath sounds bilaterally. Abdominal: Bowel sounds present. Soft, nondistended, and nontender. PEG tube in place. EXTREMITIES: Edema. SKIN: Multiple decubitus ulcers, photographically documented. Laboratory Data: White blood cell count 2.4, hemoglobin 8.5, and platelets 462,000. Sodium 134, potassium 3.9, chloride 97, bicarbonate 27, BUN 20, and creatinine 0.5. Urinalysis with some blood and no significant pyuria or bacteriuria. ESR 130. CEA 9.2. MICROBIOLOGY: 1. On 08/01/2017, blood culture pending. 2. On 08/01/2017, sputum culture pending. Imaging: On 08/01/2017, chest x-ray questionable right basilar patchy infiltrate. ASSESSMENT: 1. Possible recurrent healthcare-associated/ventilator-associated pneumonia. Sputum cultures pending. Chest x-ray shows questionable right basilar patchy infiltrate. There is a history of growth of multi-drug resistant organisms. 2. Chronic sacrococcygeal osteomyelitis, previously evaluated by Surgery and deemed not a surgical candidate. He has a history of growth of multidrug resistant bacterial colonization. 3. History of coagulase-negative Staphylococcus line associated bacteremia, rule out recurrence. Surveillance blood cultures pending. 4. History of multi-drug resistant urinary pathogens, rule out recurrent urinary tract infection. Surveillance urinalysis is benign. No urine culture has been sent. 5. Hepatitis C antibody positive with no evidence of transaminitis. 6. Negative human immunodeficiency virus. 7. Afebrile without leukocytosis. 8. Chronic ventilator-dependent respiratory failure, status post tracheostomy and percutaneous endoscopic gastrostomy. 9. Chronic anoxic encephalopathy, status post cardiac arrest. 10. Elevated erythrocyte sedimentation rate, worse. 11. Reactive thrombocytosis. 12. Cachexia with elevated carcinoembryonic antigen and normal prostate specific antigen. 13. Acute on chronic anemia. 14. Sinus tachycardia. 15. Chronic systolic congestive heart failure with an ejection fraction of 30%, status post automatic implanted cardioverter defibrillator. 16. Paroxysmal atrial fibrillation. 17. assisted resident. 18. Multi-drug resistant organisms, colonized. 19. No known drug allergies. 20. Full Code. PLAN: 1. Continue empiric IV vancomycin and Zosyn day #2, pending cultures. 2. Follow up cultures and adjust antibiotics accordingly. 3. Monitor CBC and temperatures. 4. Monitor BMP. 5. Monitor chest x-ray. 6. Ventilator support tracheostomy care and aspiration precautions. 7. Wound care. Thank you. We will follow. Zev Wells M.D. DR: NORMA JOB#: [id number] CC: Shani Moses M.D.; Fax#: [phone] Alborzi, M.D ; Fax#: [phone]
[2017-08-03 04:00] VITALS: BP 109/65
[2017-08-03 05:26] LABS: BASOPHILS % (AUTO) 0.6 % (0.0-2.0); EOSINOPHILS % (AUTO) 3.5 % (0.0-3.0); LYMPHOCYTES % (AUTO) 14.9 % (20.0-45.0); MEAN CORPUSCULAR HEMOGLOBIN 29.9 PG (27.0-31.0); MEAN CORPUSCULAR HGB CONC 31.8 G/DL (32.0-36.0); MEAN CORPUSCULAR VOLUME 94 FL (80-99); MEAN PLATELET VOLUME 5.7 FL (6.5-10.1); MONOCYTES % (AUTO) 12.5 % (1.0-10.0); NEUTROPHILS % (AUTO) 68.6 % (45.0-75.0); PLATELET COUNT 464 K/UL (150-450); RED BLOOD COUNT 2.79 M/UL (4.70-6.10); RED CELL DISTRIBUTION WIDTH 15.7 % (11.6-14.8); WHITE BLOOD COUNT 10.4 K/UL (4.8-10.8)
[2017-08-03 05:39] LABS: INR 1.1 (0.9-1.1)
[2017-08-03] MEDS: Piperacillin/Tazobactam 3.375 GM in NS 110 ML IVPB SCH ×3 (06:22→21:33)
--- NOTE | 2017-08-03 06:57 | Infectious Diseases Prog Note ---
Assessment/Plan Assessment/Plan ASSESSMENT: // Possible recurrent HCAP / VAP - SCx pending - CXR 08/01: Questionable right basilar patchy infiltrate - h/o MDR-ACB, KPC, Providencia, XDR Pseudomonas // Chronic sacrococcygeal osteomyelitis - previous evaluation by surgery deemed not a surgical candidate - CT with contrast--some sacral/coccygeal erosion, but no abscess. no profound progression. - h/o MDR ACB, C albicans, and KPC (sensitive only to colistin) // Multiple decubiti POA, not grossly infected // h/o Coag neg staph RUE PICC associated bacteremia r/o recurrence - surveillance BCx NGTD // h/o MDR Klebsiella and zosyn resistant Pseudomonas asymptomatic bacteriuria r /o recurrence - surveillance UA(-) // HCV Ab+, no transaminitis currently // Negative HIV // Afebrile without leukocytosis Chronic VDRF SP trach, PEG Chronic anoxic encephalopathy SP cardiac arrest Elevated ESR - worse Reactive thrombocytosis Cachexia with elevated CEA, normal PSA Acute on chronic anemia - Hgb stable Sinus tachycardia Chronic systolic CHF, EF 30% SP AICD Paroxysmal Afib Long Term resident MDRO colonized NKDA Full code PLAN: --Continue empiric IV vancomycin, zosyn d#3 / 5. May DC soon if cultures remain negative --f/u cultures --monitor CBC, temperatures --monitor BMP --Monitor CXR - repeat AM --Ventilatory support, tracheostomy care, aspiration precautions. --wound care Subjective Allergies: Coded Allergies: No Known Allergies (Unverified , 03/07/17) Subjective remains afebrile cultures NGTD nonverbal Objective Vital Signs Last 24 Hour Vital Signs Date Time Temp Pulse Resp B/P (MAP) Pulse Ox O2 Delivery O2 Flow Rate FiO2 08/03/17 05:20 98 15 35 08/03/17 04:00 95 08/03/17 04:00 97.5 88 20 109/65 100 Mechanical Ventilator 35 08/03/17 04:00 35 08/03/17 03:21 110 20 35 08/03/17 01:22 106 21 35 08/03/17 00:00 95 08/03/17 00:00 97.5 105 20 110/80 100 Mechanical Ventilator 35 08/03/17 00:00 35 08/02/17 23:26 92 16 35 08/02/17 21:14 101 16 35 08/02/17 21:11 107 117/80 08/02/17 20:00 35 08/02/17 20:00 117 08/02/17 20:00 97.9 107 20 117/80 100 Mechanical Ventilator 35 08/02/17 19:14 111 16 35 08/02/17 17:00 101 16 35 08/02/17 16:00 106 08/02/17 16:00 35 08/02/17 16:00 97.5 107 16 115/76 100 Mechanical Ventilator 35 08/02/17 15:15 98 16 35 08/02/17 13:15 96 16 35 08/02/17 12:10 98.5 96 16 108/67 100 Mechanical Ventilator 35 08/02/17 12:00 101 08/02/17 12:00 35 08/02/17 11:15 97 16 35 08/02/17 09:15 98 16 35 08/02/17 09:00 106/71 08/02/17 09:00 111 106/71 08/02/17 08:00 35 08/02/17 08:00 105 08/02/17 07:46 99.1 111 18 106/71 100 Mechanical Ventilator 35 08/02/17 07:15 94 16 35 Height (Feet): 5 Height (Inches): 9.00 Weight (Pounds): 124 General Appearance: no acute distress HEENT: status post trach Respiratory/Chest: decreased breath sounds Cardiovascular: normal rate, regular rhythm Abdomen: normal bowel sounds, soft, non tender, non distended Microbiology Date/Time Source Procedure Growth Status 08/01/17 10:45 Blood Blood Culture - Preliminary NO GROWTH AFTER 24 HOURS Resulted 08/01/17 10:30 Blood Blood Culture - Preliminary NO GROWTH AFTER 24 HOURS Resulted Laboratory Tests Test 08/03/17 00:00 08/03/17 04:00 Stool Occult Blood Pending White Blood Count 10.4 K/UL (4.8-10.8) Red Blood Count 2.79 M/UL (4.70-6.10) L Hemoglobin 8.3 G/DL (14.2-18.0) L Hematocrit 26.2 % (42.0-52.0) L Mean Corpuscular Volume 94 FL (80-99) Mean Corpuscular Hemoglobin 29.9 PG (27.0-31.0) Mean Corpuscular Hemoglobin Concent 31.8 G/DL (32.0-36.0) L Red Cell Distribution Width 15.7 % (11.6-14.8) H Platelet Count 464 K/UL (150-450) H Mean Platelet Volume 5.7 FL (6.5-10.1) L Neutrophils (%) (Auto) 68.6 % (45.0-75.0) Lymphocytes (%) (Auto) 14.9 % (20.0-45.0) L Monocytes (%) (Auto) 12.5 % (1.0-10.0) H Eosinophils (%) (Auto) 3.5 % (0.0-3.0) H Basophils (%) (Auto) 0.6 % (0.0-2.0) Prothrombin Time 12.0 SEC (9.30-11.50) H Prothromb Time International Ratio 1.1 (0.9-1.1) Activated Partial Thromboplast Time 32 SEC (23-33) Sodium Level Pending Potassium Level Pending Chloride Level Pending Carbon Dioxide Level Pending Blood Urea Nitrogen Pending Creatinine Pending Estimat Glomerular Filtration Rate Pending Glucose Level Pending Calcium Level Pending Phosphorus Level Pending Magnesium Level Pending Total Bilirubin Pending Aspartate Amino Transf (AST/SGOT) Pending Alanine Aminotransferase (ALT/SGPT) Pending Alkaline Phosphatase Pending Total Protein Pending Albumin Pending Globulin Pending Current Medications Medications (Trade) Dose Ordered Sig/Tameka Route PRN Reason Start Time Stop Time Status Last Admin Dose Admin Acetaminophen (Tylenol) 650 mg Q4H PRN ORAL FEVER 08/01/17 13:00 08/31/17 12:59 Albuterol/ Ipratropium (DuoNeb 0.5-3(2.5)mg/3ml) 3 ml Q4H PRN HHN Shortness of Breath 08/01/17 13:00 08/06/17 12:59 Amiodarone HCl (Cordarone) 200 mg DAILY GT 08/02/17 09:00 09/01/17 08:59 08/02/17 09:34 Carvedilol (Coreg) 3.125 mg Q12HR GT 08/01/17 21:00 08/31/17 20:59 08/02/17 21:11 Dextrose (Dextrose 50%) STAT PRN IV Hypoglycemia 08/01/17 13:00 08/31/17 12:59 Furosemide (Lasix) 60 mg DAILY GT 08/02/17 09:00 09/01/17 08:59 08/02/17 09:34 Heparin Sodium (Porcine) (Heparin 5000 units/ml) 5,000 units EVERY 12 HOURS SUBQ 08/01/17 21:00 08/31/17 20:59 08/02/17 21:15 Lansoprazole (Prevacid) 30 mg DAILY GT 08/02/17 09:00 09/01/17 08:59 08/02/17 09:34 Levetiracetam (Keppra) 500 mg Q12HR GT 08/01/17 21:00 08/31/17 20:59 08/02/17 21:11 Lisinopril (Zestril) 10 mg DAILY GT 08/02/17 09:00 09/01/17 08:59 Lorazepam (Ativan 2mg/ml 1ml) 2 mg Q2H PRN IV For Anxiety 08/01/17 13:00 08/08/17 12:59 Morphine Sulfate (Morphine Sulfate) 4 mg Q4H PRN IVP Severe Pain (Pain Scale 7-10) 08/01/17 13:00 08/08/17 12:59 Ondansetron HCl (Zofran) 4 mg Q6H PRN IVP Nausea & Vomiting 08/01/17 13:00 08/31/17 12:59 Piperacillin Sod/ Tazobactam Sod 3.375 gm/Sodium Chloride 110 ml @ 27.5 mls/hr Q8HR IVPB 08/01/17 15:00 08/08/17 14:59 08/03/17 06:22 Polyethylene Glycol (Miralax) 17 gm DAILYPRN PRN GT Constipation 08/01/17 13:00 08/31/17 12:59 Vancomycin HCl (Vanco rx to dose) 1 ea DAILYPRN PRN MISC RX TO DOSE PROTOCOL 08/01/17 14:15 08/31/17 14:14 Vancomycin/Sodium Chloride 250 ml @ 166.667 mls/hr Q24H IVPB 08/02/17 18:00 08/07/17 17:59 08/02/17 18:46 ROXANNE BELLO Aug 03, 2017 06:57
[2017-08-03 07:49] LABS: ANION GAP 13 (5-15); CALCIUM 9.3 mg/dL (8.6-10.2); CARBON DIOXIDE 27 mEQ/L (20-30); CHLORIDE 102 mEQ/L (98-107); CREATININE 0.6 mg/dL (0.7-1.2); GLOMERULAR FILTRATION RATE > 60 mL/min (>60); HEMOLYSIS 0; POTASSIUM 4.1 mEQ/L (3.4-4.9); SODIUM 142 mEQ/L (135-145)
[2017-08-03 07:53] LABS: ALANINE AMINOTRANSFERASE 29 U/L (3-41); ASPARTATE AMINO TRANSFERASE 17 U/L (5-40); MAGNESIUM 1.8 mg/dL (1.7-2.5); PHOSPHORUS 3.5 mg/dL (2.5-4.8)
[2017-08-03 07:54] LABS: ALBUMIN/GLOBULIN RATIO 0.6 (1.0-2.7)
[2017-08-03 08:00] VITALS: BP 115/76
[2017-08-03] MEDS: Furosemide 40mg tab GT SCH (08:50)
[2017-08-03] MEDS: Amiodarone 200mg tab GT SCH (08:52)
[2017-08-03] MEDS: Heparin 5000 units/ml inj SUBQ SCH ×2 (08:52→20:31)
[2017-08-03] MEDS: levETIRAcetam 500mg/5ml Liquid GT SCH ×2 (08:52→20:30)
[2017-08-03] MEDS: Lisinopril 10mg tab GT SCH (08:53)
[2017-08-03] MEDS ORDERED: Tubing IV Secondary IV ONE (10:05)
--- NOTE | 2017-08-03 11:03 | Pulmonology Progress Note ---
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, 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 Discussed with: nurses, consultants, egg caser Subjective ROS Limited/Unobtainable: No Constitutional: Reports: no symptoms HEENT: Repors: no symptoms Respiratory: Reports: no symptoms Allergies: Coded Allergies: No Known Allergies (Unverified , 03/07/17) Objective Last 24 Hour Vital Signs Date Time Temp Pulse Resp B/P (MAP) Pulse Ox O2 Delivery O2 Flow Rate FiO2 08/03/17 10:53 88 16 35 08/03/17 09:16 103 20 35 08/03/17 08:53 115/76 08/03/17 08:52 102 115/76 08/03/17 08:00 98.4 102 20 115/76 100 Mechanical Ventilator 35 08/03/17 08:00 104 08/03/17 08:00 35 08/03/17 07:08 105 20 35 08/03/17 05:20 98 15 35 08/03/17 04:00 95 08/03/17 04:00 97.5 88 20 109/65 100 Mechanical Ventilator 35 08/03/17 04:00 35 08/03/17 03:21 110 20 35 08/03/17 01:22 106 21 35 08/03/17 00:00 95 08/03/17 00:00 97.5 105 20 110/80 100 Mechanical Ventilator 35 08/03/17 00:00 35 08/02/17 23:26 92 16 35 08/02/17 21:14 101 16 35 08/02/17 21:11 107 117/80 08/02/17 20:00 35 08/02/17 20:00 117 08/02/17 20:00 97.9 107 20 117/80 100 Mechanical Ventilator 35 08/02/17 19:14 111 16 35 08/02/17 17:00 101 16 35 08/02/17 16:00 106 08/02/17 16:00 35 08/02/17 16:00 97.5 107 16 115/76 100 Mechanical Ventilator 35 08/02/17 15:15 98 16 35 08/02/17 13:15 96 16 35 08/02/17 12:10 98.5 96 16 108/67 100 Mechanical Ventilator 35 08/02/17 12:00 101 08/02/17 12:00 35 08/02/17 11:15 97 16 35 Intake and Output 08/03/17 08/04/17 19:00 07:00 Intake Total 140 ml Balance 140 ml Intake Free Water 50 ml Tube Feeding 90 ml # Bowel Movements 1 General Appearance: cachetic HEENT: normocephalic, atraumatic Respiratory/Chest: chest wall non-tender, lungs clear Cardiovascular: normal peripheral pulses, normal rate Abdomen: normal bowel sounds, soft, non tender Genitourinary: normal external genitalia Extremities: no cyanosis Skin: no rash 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 Complete 08/01/17 10:53 Rectum VRE Culture - Final Enterococcus Faecalis - Vre Enterococcus Faecium - Vre Complete Laboratory Tests 08/03/17 00:00: Stool Occult Blood Negative 08/03/17 04:00: White Blood Count 10.4, Red Blood Count 2.79L, Hemoglobin 8.3L, Hematocrit 26.2L , Mean Corpuscular Volume 94, Mean Corpuscular Hemoglobin 29.9, Mean Corpuscular Hemoglobin Concent 31.8L, Red Cell Distribution Width 15.7H, Platelet Count 464H, Mean Platelet Volume 5.7L, Neutrophils (%) (Auto) 68.6, Lymphocytes (%) (Auto) 14.9L, Monocytes (%) (Auto) 12.5H, Eosinophils (%) (Auto ) 3.5H, Basophils (%) (Auto) 0.6, Prothrombin Time 12.0H, Prothromb Time International Ratio 1.1, Activated Partial Thromboplast Time 32, Sodium Level 142, Potassium Level 4.1, Chloride Level 102, Carbon Dioxide Level 27, Anion Gap 13, Blood Urea Nitrogen 18, Creatinine 0.6L, Estimat Glomerular Filtration Rate > 60, Glucose Level 84, Calcium Level 9.3, Phosphorus Level 3.5, Magnesium Level 1.8, Total Bilirubin 0.2, Aspartate Amino Transf (AST/SGOT) 17, Alanine Aminotransferase (ALT/SGPT) 29, Alkaline Phosphatase 155H, Total Protein 7.0, Albumin 2.7L, Globulin 4.3, Albumin/Globulin Ratio 0.6L Current Medications Medications (Trade) Dose Ordered Sig/Tameka Route PRN Reason Start Time Stop Time Status Last Admin Dose Admin Acetaminophen (Tylenol) 650 mg Q4H PRN ORAL FEVER 08/01/17 13:00 08/31/17 12:59 Albuterol/ Ipratropium (DuoNeb 0.5-3(2.5)mg/3ml) 3 ml Q4H PRN HHN Shortness of Breath 08/01/17 13:00 08/06/17 12:59 Amiodarone HCl (Cordarone) 200 mg DAILY GT 08/02/17 09:00 09/01/17 08:59 08/03/17 08:52 Carvedilol (Coreg) 3.125 mg Q12HR GT 08/01/17 21:00 08/31/17 20:59 08/03/17 08:52 Dextrose (Dextrose 50%) STAT PRN IV Hypoglycemia 08/01/17 13:00 08/31/17 12:59 Furosemide (Lasix) 60 mg DAILY GT 08/02/17 09:00 09/01/17 08:59 08/03/17 08:50 Heparin Sodium (Porcine) (Heparin 5000 units/ml) 5,000 units EVERY 12 HOURS SUBQ 08/01/17 21:00 08/31/17 20:59 08/03/17 08:52 Lansoprazole (Prevacid) 30 mg DAILY GT 08/02/17 09:00 09/01/17 08:59 08/03/17 08:51 Levetiracetam (Keppra) 500 mg Q12HR GT 08/01/17 21:00 08/31/17 20:59 08/03/17 08:52 Lisinopril (Zestril) 10 mg DAILY GT 08/02/17 09:00 09/01/17 08:59 Lorazepam (Ativan 2mg/ml 1ml) 2 mg Q2H PRN IV For Anxiety 08/01/17 13:00 08/08/17 12:59 Morphine Sulfate (Morphine Sulfate) 4 mg Q4H PRN IVP Severe Pain (Pain Scale 7-10) 08/01/17 13:00 08/08/17 12:59 Ondansetron HCl (Zofran) 4 mg Q6H PRN IVP Nausea & Vomiting 08/01/17 13:00 08/31/17 12:59 Piperacillin Sod/ Tazobactam Sod 3.375 gm/Sodium Chloride 110 ml @ 27.5 mls/hr Q8HR IVPB 08/01/17 15:00 08/08/17 14:59 08/03/17 06:22 Polyethylene Glycol (Miralax) 17 gm DAILYPRN PRN GT Constipation 08/01/17 13:00 08/31/17 12:59 Vancomycin HCl (Vanco rx to dose) 1 ea DAILYPRN PRN MISC RX TO DOSE PROTOCOL 08/01/17 14:15 08/31/17 14:14 Vancomycin/Sodium Chloride 250 ml @ 166.667 mls/hr Q24H IVPB 08/02/17 18:00 08/07/17 17:59 08/02/17 18:46 ODETTE SMILEY Aug 03, 2017 11:03
[2017-08-03 12:00] VITALS: BP 126/82
--- NOTE | 2017-08-03 15:55 | Cardiology Report ---
APPROVED REPORT EKG Measurement Heart [id number] [place] [id number] Normal sinus rhythm Prolonged QT Abnormal ECG
[2017-08-03 16:00] VITALS: BP 125/76
[2017-08-03] MEDS: Vancomycin 750mg/NS 250ml 250 ML IVPB SCH (18:02)
[2017-08-03 20:00] VITALS: BP 122/80
[2017-08-03] MEDS: Morphine Sulfate 4mg/ml Inj IVP PRN (21:45)
[2017-08-04] VITALS: BP 118/69
[2017-08-04 03:55] VITALS: BP 100/65
[2017-08-04 04:47] LABS: BASOPHILS % (AUTO) 1.1 % (0.0-2.0); EOSINOPHILS % (AUTO) 1.8 % (0.0-3.0); LYMPHOCYTES % (AUTO) 14.3 % (20.0-45.0); MEAN CORPUSCULAR HEMOGLOBIN 30.4 PG (27.0-31.0); MEAN CORPUSCULAR HGB CONC 32.6 G/DL (32.0-36.0); MEAN CORPUSCULAR VOLUME 93 FL (80-99); MEAN PLATELET VOLUME 5.5 FL (6.5-10.1); MONOCYTES % (AUTO) 14.3 % (1.0-10.0); NEUTROPHILS % (AUTO) 68.4 % (45.0-75.0); PLATELET COUNT 459 K/UL (150-450); RED BLOOD COUNT 2.89 M/UL (4.70-6.10); RED CELL DISTRIBUTION WIDTH 16.2 % (11.6-14.8); WHITE BLOOD COUNT 12.1 K/UL (4.8-10.8)
[2017-08-04 05:05] LABS: ALANINE AMINOTRANSFERASE 23 U/L (3-41); ALBUMIN/GLOBULIN RATIO 0.5 (1.0-2.7); ANION GAP 10 (5-15); ASPARTATE AMINO TRANSFERASE 15 U/L (5-40); CALCIUM 10.6 mg/dL (8.6-10.2); CARBON DIOXIDE 28 mEQ/L (20-30); CHLORIDE 103 mEQ/L (98-107); CREATININE 0.7 mg/dL (0.7-1.2); GLOMERULAR FILTRATION RATE > 60 mL/min (>60); HEMOLYSIS 2; MAGNESIUM 1.8 mg/dL (1.7-2.5); PHOSPHORUS 3.1 mg/dL (2.5-4.8); POTASSIUM 3.1 mEQ/L (3.4-4.9); SODIUM 141 mEQ/L (135-145); TOTAL PROTEIN 7.1 g/dL (6.6-8.7)
[2017-08-04] MEDS: Piperacillin/Tazobactam 3.375 GM in NS 110 ML IVPB SCH ×3 (05:24→22:01)
[2017-08-04 08:00] VITALS: BP 124/57
[2017-08-04] MEDS: Furosemide 40mg tab GT SCH (08:23)
[2017-08-04] MEDS: Amiodarone 200mg tab GT SCH (08:24)
[2017-08-04] MEDS: Lisinopril 10mg tab GT SCH (08:24)
[2017-08-04] MEDS: levETIRAcetam 500mg/5ml Liquid GT SCH ×2 (08:24→21:26)
[2017-08-04] MEDS: Heparin 5000 units/ml inj SUBQ SCH ×2 (08:25→21:28)
[2017-08-04] MEDS ORDERED: KCl 10% 40mEq/30ml liquid GT ONE (10:00)
--- NOTE | 2017-08-04 10:04 | Pulmonology Progress Note ---
Assessment/Plan Problems: (1) MDRO (multiple drug resistant organisms) resistance (2) Healthcare-associated pneumonia (3) Leukocytosis (4) Acute on chronic respiratory failure (5) Atrial fibrillation (6) EF of 30 (7) Feeding by G-tube (8) Anemia Respiratory: monitor respiratory rate, adjust FIO2, CXR Cardiac: continue to monitor HR/BP Renal: F/U I&O Infectious Disease: check cultures, continue antibiotics Gastrointestinal: continue feedings/current rate Endocrine: monitor blood sugar, check HgA1C Hematologic: monitor H/H Neurologic: PRN Ativan Affect: PRN ativan Prophylaxis: Protonix, Heparin Notes Reviewed: ID Discussed with: nurses, consultants, case reviewer Subjective ROS Limited/Unobtainable: Yes Constitutional: Reports: no symptoms HEENT: Repors: no symptoms Allergies: Coded Allergies: No Known Allergies (Unverified , 03/07/17) Objective Last 24 Hour Vital Signs Date Time Temp Pulse Resp B/P (MAP) Pulse Ox O2 Delivery O2 Flow Rate FiO2 08/04/17 09:01 93 16 30 08/04/17 08:24 124/57 08/04/17 08:24 93 124/57 08/04/17 08:00 30 08/04/17 08:00 98.1 93 16 124/57 100 Mechanical Ventilator 30 08/04/17 08:00 93 08/04/17 07:18 95 16 30 08/04/17 05:25 93 16 30 08/04/17 04:00 94 08/04/17 03:55 97.9 98 18 100/65 100 Mechanical Ventilator 35 08/04/17 03:55 35 08/04/17 03:09 96 16 30 08/04/17 01:05 89 16 30 08/04/17 00:00 89 08/04/17 00:00 98.7 95 20 118/69 100 Mechanical Ventilator 35 08/04/17 00:00 35 08/03/17 23:10 90 18 30 08/03/17 22:15 99.0 08/03/17 20:52 102 16 30 08/03/17 20:29 98 122/80 08/03/17 20:00 99.0 98 18 122/80 100 Mechanical Ventilator 35 08/03/17 20:00 35 08/03/17 20:00 100 08/03/17 18:59 97 16 30 08/03/17 16:48 96 16 30 08/03/17 16:00 97.9 97 18 125/76 100 Mechanical Ventilator 35 08/03/17 16:00 35 08/03/17 16:00 101 08/03/17 15:32 97 20 35 08/03/17 13:02 104 20 35 08/03/17 12:00 96 08/03/17 12:00 35 08/03/17 12:00 97.9 101 18 126/82 100 Mechanical Ventilator 35 08/03/17 10:53 88 16 35 Intake and Output 08/04/17 08/05/17 19:00 07:00 Intake Total 150.0 ml Balance 150.0 ml Intake Free Water 50 ml IV Total 40.0 ml Tube Feeding 60 ml General Appearance: cachetic HEENT: normocephalic, atraumatic Respiratory/Chest: chest wall non-tender, lungs clear Cardiovascular: normal peripheral pulses, normal rate Abdomen: normal bowel sounds, soft, non tender Genitourinary: normal external genitalia Extremities: no cyanosis Skin: no rash 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: point of care technician 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 normal, abnormal gait Lymphatic: no neck adenopathy Microbiology Date/Time Source Procedure Growth Status 08/01/17 10:45 Blood Blood Culture - Preliminary NO GROWTH AFTER 48 HOURS Resulted 08/01/17 10:30 Blood Blood Culture - Preliminary NO GROWTH AFTER 48 HOURS Resulted 08/01/17 10:53 Nasal Nares MRSA Culture - Final NO METHICILLIN RESISTANT STAPH AUREUS... Complete 08/01/17 10:53 Rectum VRE Culture - Final Enterococcus Faecalis - Vre Enterococcus Faecium - Vre Complete Laboratory Tests 08/04/17 04:00: White Blood Count 12.1H, Red Blood Count 2.89L, Hemoglobin 8.8L, Hematocrit 27.0L, Mean Corpuscular Volume 93, Mean Corpuscular Hemoglobin 30.4, Mean Corpuscular Hemoglobin Concent 32.6, Red Cell Distribution Width 16.2H, Platelet Count 459H, Mean Platelet Volume 5.5L, Neutrophils (%) (Auto) 68.4, Lymphocytes (%) (Auto) 14.3L, Monocytes (%) (Auto) 14.3H, Eosinophils (%) (Auto ) 1.8, Basophils (%) (Auto) 1.1, Sodium Level 141, Potassium Level 3.1L, Chloride Level 103, Carbon Dioxide Level 28, Anion Gap 10, Blood Urea Nitrogen 16, Creatinine 0.7, Estimat Glomerular Filtration Rate > 60, Glucose Level 122H , Calcium Level 10.6H, Phosphorus Level 3.1, Magnesium Level 1.8, Total Bilirubin < 0.2, Aspartate Amino Transf (AST/SGOT) 15, Alanine Aminotransferase (ALT/SGPT) 23, Alkaline Phosphatase 149H, Total Protein 7.1, Albumin 2.6L, Globulin 4.5, Albumin/Globulin Ratio 0.5L Current Medications Medications (Trade) Dose Ordered Sig/Tameka Route PRN Reason Start Time Stop Time Status Last Admin Dose Admin Acetaminophen (Tylenol) 650 mg Q4H PRN ORAL FEVER 08/01/17 13:00 08/31/17 12:59 Albuterol/ Ipratropium (DuoNeb 0.5-3(2.5)mg/3ml) 3 ml Q4H PRN HHN Shortness of Breath 08/01/17 13:00 08/06/17 12:59 Amiodarone HCl (Cordarone) 200 mg DAILY GT 08/02/17 09:00 09/01/17 08:59 08/04/17 08:24 Carvedilol (Coreg) 3.125 mg Q12HR GT 08/01/17 21:00 08/31/17 20:59 08/04/17 08:24 Dextrose (Dextrose 50%) STAT PRN IV Hypoglycemia 08/01/17 13:00 08/31/17 12:59 Furosemide (Lasix) 60 mg DAILY GT 08/02/17 09:00 09/01/17 08:59 08/04/17 08:23 Heparin Sodium (Porcine) (Heparin 5000 units/ml) 5,000 units EVERY 12 HOURS SUBQ 08/01/17 21:00 08/31/17 20:59 08/04/17 08:25 Lansoprazole (Prevacid) 30 mg DAILY GT 08/02/17 09:00 09/01/17 08:59 08/04/17 08:23 Levetiracetam (Keppra) 500 mg Q12HR GT 08/01/17 21:00 08/31/17 20:59 08/04/17 08:24 Lisinopril (Zestril) 10 mg DAILY GT 08/02/17 09:00 09/01/17 08:59 08/04/17 08:24 Lorazepam (Ativan 2mg/ml 1ml) 2 mg Q2H PRN IV For Anxiety 08/01/17 13:00 08/08/17 12:59 Morphine Sulfate (Morphine Sulfate) 4 mg Q4H PRN IVP Severe Pain (Pain Scale 7-10) 08/01/17 13:00 08/08/17 12:59 08/03/17 21:45 Ondansetron HCl (Zofran) 4 mg Q6H PRN IVP Nausea & Vomiting 08/01/17 13:00 08/31/17 12:59 Piperacillin Sod/ Tazobactam Sod 3.375 gm/Sodium Chloride 110 ml @ 27.5 mls/hr Q8HR IVPB 08/01/17 15:00 08/08/17 14:59 08/04/17 05:24 Polyethylene Glycol (Miralax) 17 gm DAILYPRN PRN GT Constipation 08/01/17 13:00 08/31/17 12:59 Potassium Chloride (KCl 10% 40mEq Oral solution) 40 meq ONCE ONCE GT 08/04/17 10:00 08/04/17 10:01 UNV Vancomycin HCl (Vanco rx to dose) 1 ea DAILYPRN PRN MISC RX TO DOSE PROTOCOL 08/01/17 14:15 08/31/17 14:14 Vancomycin/Sodium Chloride 250 ml @ 166.667 mls/hr Q24H IVPB 08/02/17 18:00 08/07/17 17:59 08/03/17 18:02 ODETTE SMILEY Aug 04, 2017 10:04
--- NOTE | 2017-08-04 11:09 | Diagnostic Imaging Report ---
Indication: Abnormal chest sounds Technique: One view of the chest Comparison: 08/01/2017 Findings: Left chest bifocal AICD is again demonstrated. Tracheostomy is again demonstrated. There is decreased consolidation at the right lung base. This is now largely cleared. No new infiltrates. Lungs and pleural spaces are currently clear. The heart size is normal Impression: Interim clearing of previously demonstrated right basilar infiltrate. Clear lungs currently. Other findings as noted
--- NOTE | 2017-08-04 11:11 | Infectious Diseases Prog Note ---
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 no profound progression. - h/o MDR ACB, C albicans, and KPC (sensitive only to colistin) // Multiple decubiti POA, not grossly infected // h/o Coag neg staph RUE PICC associated bacteremia r/o recurrence - surveillance BCx NGTD // h/o MDR Klebsiella and zosyn resistant Pseudomonas asymptomatic bacteriuria r /o recurrence - surveillance UA(-) // HCV Ab+, no transaminitis currently // Negative HIV // Afebrile without leukocytosis Chronic VDRF SP trach, PEG Chronic anoxic encephalopathy SP cardiac arrest Elevated ESR - worse Reactive thrombocytosis Cachexia with elevated CEA, normal PSA Acute on chronic anemia - Hgb stable Sinus tachycardia Chronic systolic CHF, EF 30% SP AICD Paroxysmal Afib [facility] resident MDRO colonized NKDA Full code PLAN: --Continue empiric IV vancomycin, zosyn d# 4 / 7 , colistin d# 1 --f/u cultures --monitor CBC, temperatures --monitor BMP --Monitor CXR - repeat AM --Ventilatory support, tracheostomy care, aspiration precautions. --wound care Subjective Constitutional: Denies: no symptoms, fever, chills, fatigue, anorexia, drenching sweats, other Allergies: Coded Allergies: No Known Allergies (Unverified , 03/07/17) Objective Vital Signs Last 24 Hour Vital Signs Date Time Temp Pulse Resp B/P (MAP) Pulse Ox O2 Delivery O2 Flow Rate FiO2 08/04/17 09:01 93 16 30 08/04/17 08:24 124/57 08/04/17 08:24 93 124/57 08/04/17 08:00 30 08/04/17 08:00 98.1 93 16 124/57 100 Mechanical Ventilator 30 08/04/17 08:00 93 08/04/17 07:18 95 16 30 08/04/17 05:25 93 16 30 08/04/17 04:00 94 08/04/17 03:55 97.9 98 18 100/65 100 Mechanical Ventilator 35 08/04/17 03:55 35 08/04/17 03:09 96 16 30 08/04/17 01:05 89 16 30 08/04/17 00:00 89 08/04/17 00:00 98.7 95 20 118/69 100 Mechanical Ventilator 35 08/04/17 00:00 35 08/03/17 23:10 90 18 30 08/03/17 22:15 99.0 08/03/17 20:52 102 16 30 08/03/17 20:29 98 122/80 08/03/17 20:00 99.0 98 18 122/80 100 Mechanical Ventilator 35 08/03/17 20:00 35 08/03/17 20:00 100 08/03/17 18:59 97 16 30 08/03/17 16:48 96 16 30 08/03/17 16:00 97.9 97 18 125/76 100 Mechanical Ventilator 35 08/03/17 16:00 35 08/03/17 16:00 101 08/03/17 15:32 97 20 35 08/03/17 13:02 104 20 35 08/03/17 12:00 96 08/03/17 12:00 35 08/03/17 12:00 97.9 101 18 126/82 100 Mechanical Ventilator 35 Height (Feet): 5 Height (Inches): 9.00 Weight (Pounds): 124 HEENT: anicteric Respiratory/Chest: no respiratory distress Cardiovascular: regular rhythm Abdomen: non distended Laboratory Tests Test 08/04/17 04:00 White Blood Count 12.1 K/UL (4.8-10.8) H Red Blood Count 2.89 M/UL (4.70-6.10) L Hemoglobin 8.8 G/DL (14.2-18.0) L Hematocrit 27.0 % (42.0-52.0) L Mean Corpuscular Volume 93 FL (80-99) Mean Corpuscular Hemoglobin 30.4 PG (27.0-31.0) Mean Corpuscular Hemoglobin Concent 32.6 G/DL (32.0-36.0) Red Cell Distribution Width 16.2 % (11.6-14.8) H Platelet Count 459 K/UL (150-450) H Mean Platelet Volume 5.5 FL (6.5-10.1) L Neutrophils (%) (Auto) 68.4 % (45.0-75.0) Lymphocytes (%) (Auto) 14.3 % (20.0-45.0) L Monocytes (%) (Auto) 14.3 % (1.0-10.0) H Eosinophils (%) (Auto) 1.8 % (0.0-3.0) Basophils (%) (Auto) 1.1 % (0.0-2.0) Sodium Level 141 mEQ/L (135-145) Potassium Level 3.1 mEQ/L (3.4-4.9) L Chloride Level 103 mEQ/L (98-107) Carbon Dioxide Level 28 mEQ/L (20-30) Anion Gap 10 (5-15) Blood Urea Nitrogen 16 mg/dL (7-23) Creatinine 0.7 mg/dL (0.7-1.2) Estimat Glomerular Filtration Rate > 60 mL/min (>60) Glucose Level 122 mg/dL (74-106) H Calcium Level 10.6 mg/dL (8.6-10.2) H Phosphorus Level 3.1 mg/dL (2.5-4.8) Magnesium Level 1.8 mg/dL (1.7-2.5) Total Bilirubin < 0.2 mg/dL (0.0-1.2) Aspartate Amino Transf (AST/SGOT) 15 U/L (5-40) Alanine Aminotransferase (ALT/SGPT) 23 U/L (3-41) Alkaline Phosphatase 149 U/L (40-129) H Total Protein 7.1 g/dL (6.6-8.7) Albumin 2.6 g/dL (3.5-5.2) L Globulin 4.5 g/dL Albumin/Globulin Ratio 0.5 (1.0-2.7) L Current Medications Medications (Trade) Dose Ordered Sig/Tameka Route PRN Reason Start Time Stop Time Status Last Admin Dose Admin Acetaminophen (Tylenol) 650 mg Q4H PRN ORAL FEVER 08/01/17 13:00 08/31/17 12:59 Albuterol/ Ipratropium (DuoNeb 0.5-3(2.5)mg/3ml) 3 ml Q4H PRN HHN Shortness of Breath 08/01/17 13:00 08/06/17 12:59 Amiodarone HCl (Cordarone) 200 mg DAILY GT 08/02/17 09:00 09/01/17 08:59 08/04/17 08:24 Carvedilol (Coreg) 3.125 mg Q12HR GT 08/01/17 21:00 08/31/17 20:59 08/04/17 08:24 Colistimethate Sodium (Colistin *inhalation use only*) 150 mg Q12HR@10,22 INH 08/04/17 11:00 08/11/17 10:59 Dextrose (Dextrose 50%) STAT PRN IV Hypoglycemia 08/01/17 13:00 08/31/17 12:59 Furosemide (Lasix) 60 mg DAILY GT 08/02/17 09:00 09/01/17 08:59 08/04/17 08:23 Heparin Sodium (Porcine) (Heparin 5000 units/ml) 5,000 units EVERY 12 HOURS SUBQ 08/01/17 21:00 08/31/17 20:59 08/04/17 08:25 Lansoprazole (Prevacid) 30 mg DAILY GT 08/02/17 09:00 09/01/17 08:59 08/04/17 08:23 Levetiracetam (Keppra) 500 mg Q12HR GT 08/01/17 21:00 08/31/17 20:59 08/04/17 08:24 Lisinopril (Zestril) 10 mg DAILY GT 08/02/17 09:00 09/01/17 08:59 08/04/17 08:24 Lorazepam (Ativan 2mg/ml 1ml) 2 mg Q2H PRN IV For Anxiety 08/01/17 13:00 08/08/17 12:59 Morphine Sulfate (Morphine Sulfate) 4 mg Q4H PRN IVP Severe Pain (Pain Scale 7-10) 08/01/17 13:00 08/08/17 12:59 08/03/17 21:45 Ondansetron HCl (Zofran) 4 mg Q6H PRN IVP Nausea & Vomiting 08/01/17 13:00 08/31/17 12:59 Piperacillin Sod/ Tazobactam Sod 3.375 gm/Sodium Chloride 110 ml @ 27.5 mls/hr Q8HR IVPB 08/01/17 15:00 08/08/17 14:59 08/04/17 05:24 Polyethylene Glycol (Miralax) 17 gm DAILYPRN PRN GT Constipation 08/01/17 13:00 08/31/17 12:59 Vancomycin HCl (Vanco rx to dose) 1 ea DAILYPRN PRN MISC RX TO DOSE PROTOCOL 08/01/17 14:15 08/31/17 14:14 Vancomycin/Sodium Chloride 250 ml @ 166.667 mls/hr Q24H IVPB 08/02/17 18:00 08/07/17 17:59 08/03/17 18:02 MARCUS PA M.D. Aug 04, 2017 11:11
[2017-08-04] MEDS ORDERED: NS 275ml ONE (11:20)
[2017-08-04] MEDS ORDERED: 1/2 NS 1000ml IV ONE (11:20)
[2017-08-04] MEDS ORDERED: D5NS 1000ml IV ONE (11:20)
[2017-08-04 12:00] VITALS: BP 97/60
--- NOTE | 2017-08-04 13:06 | Wound Care Consultation ---
Wound Assessment Wound Assessment #1: Wound Number: 1 Wound Present on Admission: Yes New Wound: No Status Change of Wound: No Wound Location Body Site Modif: left, lateral Wound Location Body Site: malleolus/ankle Wound Type: pressure ulcer Francis Test: Does not Francis Pressure Ulcer Stage: IV/unstageable Wound Thickness: Full Thickness Wound Length: 3.0 Wound Width: 2.0 Wound Depth: utd Percent of Wound Bed Yellow/Wh: 100 Wound Drainage Description: Serosanguineous Wound Drainage Amount: Scant Wound Drainage Odor: None/Absent Tissue Surrounding Wound: Macerated Wound General Appearance: Draining, Necrotic Wound Assessment #2: Wound Number: 2 Wound Present on Admission: Yes New Wound: No Status Change of Wound: No Wound Location Body Site Modif: left Wound Location Body Site: ear Wound Type: pressure ulcer Francis Test: Does not Francis Pressure Ulcer Stage: IV/unstageable - Resolving Wound Thickness: Full Thickness Wound Length: 2.0 Wound Width: 2.0 Wound Depth: less than 0.1 Percent of Wound Abbott/Red: 100 Wound Drainage Amount: None Wound Drainage Odor: None/Absent Tissue Surrounding Wound: Erythemic Wound General Appearance: Reddened Wound Assessment #3: Wound Number: 3 Wound Present on Admission: Yes New Wound: No Status Change of Wound: No Wound Location Body Site Modif: left Wound Location Body Site: trochanter Wound Type: pressure ulcer Francis Test: Does not Francis Pressure Ulcer Stage: IV/unstageable Wound Thickness: Full Thickness Wound Length: 2.5 Wound Width: 4.0 Wound Depth: utd Percent of Wound Bed Yellow/Wh: 100 Wound Drainage Description: Serosanguineous Wound Drainage Amount: Scant Wound Drainage Odor: None/Absent Tissue Surrounding Wound: scar tissue Wound General Appearance: Reddened, Draining, Necrotic Wound Assessment #4: Wound Number: 4 Wound Present on Admission: Yes New Wound: No Status Change of Wound: No Wound Location Body Site Modif: left Wound Location Body Site: buttocks Wound Type: pressure ulcer Francis Test: Does not Francis Pressure Ulcer Stage: III Wound Thickness: Full Thickness Wound Length: 6.0 Wound Width: 6.0 Wound Depth: 0.2 Percent of Wound Abbott/Red: 80 Percent of Wound Bed Yellow/Wh: 20 Wound Drainage Description: Serosanguineous Wound Drainage Amount: Moderate Wound Drainage Odor: None/Absent Tissue Surrounding Wound: Macerated Wound General Appearance: Reddened, Draining Wound Assessment #5: Wound Number: 5 Wound Present on Admission: Yes New Wound: No Status Change of Wound: No Wound Location Body Site Modif: right Wound Location Body Site: trochanter Wound Type: pressure ulcer Francis Test: Does not Francis Pressure Ulcer Stage: IV/unstageable Wound Thickness: Full Thickness Wound Length: 7.5 Wound Width: 6.5 Wound Depth: utd Percent of Wound Abbott/Red: 20 Percent of Wound Bed Yellow/Wh: 50 Percent of Wound Black/Brown: 30 Wound Drainage Description: Serosanguineous Wound Drainage Amount: Scant Wound Drainage Odor: None/Absent Tissue Surrounding Wound: Macerated Wound General Appearance: Reddened, Draining Wound Assessment #6: Wound Number: 6 Wound Present on Admission: Yes New Wound: No Status Change of Wound: No Wound Location Body Site Modif: right, lateral Wound Location Body Site: knee Wound Type: pressure ulcer Francis Test: Does not Francis Pressure Ulcer Stage: IV/unstageable Wound Thickness: Full Thickness Wound Length: 2.5 Wound Width: 2.5 Wound Depth: utd Percent of Wound Bed Yellow/Wh: 100 Wound Drainage Description: Serosanguineous Wound Drainage Amount: Scant Wound Drainage Odor: None/Absent Tissue Surrounding Wound: Macerated Wound General Appearance: Draining, Necrotic Wound Assessment #7: Wound Number: 7 Wound Present on Admission: Yes New Wound: No Status Change of Wound: No Wound Location Body Site Modif: right, lateral Wound Location Body Site: malleolus/ankle Wound Type: scar Francis Test: Does not Francis Wound Thickness: Full Thickness Wound Length: 1.5 Wound Width: 1.5 Wound Depth: utd Percent of Wound Abbott/Red: 100 Wound Drainage Amount: None Wound Drainage Odor: None/Absent Tissue Surrounding Wound: Intact Wound General Appearance: Reddened, Open to air Wound Assessment #8: Wound Number: 8 Wound Present on Admission: Yes New Wound: No Status Change of Wound: No Wound Location Body Site Modif: left Wound Location Body Site: heel Wound Type: scar Francis Test: Does not Francis Wound Thickness: Full Thickness Wound Length: 2.5 Wound Width: 2.5 Wound Depth: utd Percent of Wound Abbott/Red: 100 Wound Drainage Amount: None Wound Drainage Odor: None/Absent Tissue Surrounding Wound: Intact Wound General Appearance: Asymptomatic, Open to air Wound Assessment #9: Wound Number: 9 Wound Present on Admission: Yes New Wound: No Status Change of Wound: No Wound Location Body Site Modif: right Wound Location Body Site: heel Wound Type: scar Francis Test: Does not Francis Wound Thickness: Full Thickness Wound Length: 2.0 Wound Width: 3.0 Wound Depth: utd Percent of Wound Abbott/Red: 100 Wound Drainage Amount: None Wound Drainage Odor: None/Absent Tissue Surrounding Wound: Intact Wound General Appearance: Asymptomatic Wound Assessment #10: Wound Number: 10 Wound Present on Admission: Yes New Wound: No Status Change of Wound: No Wound Location Body Site: perianal Wound Type: chemical burn Francis Test: Does not Francis Percent of Wound Abbott/Red: 100 Wound Drainage Amount: None Wound Drainage Odor: None/Absent Tissue Surrounding Wound: Erythemic Wound General Appearance: Reddened Wound Assessment #11: Wound Number: 11 Wound Present on Admission: Yes New Wound: No Status Change of Wound: No Wound Location Body Site Modif: mid Wound Location Body Site: other - sacrococcygeal Wound Type: pressure ulcer Francis Test: Does not Francis Pressure Ulcer Stage: IV/unstageable Wound Thickness: Full Thickness Wound Length: 14.0 Wound Width: 20.0 Wound Depth: 3.5 Percent of Wound Abbott/Red: 95 Percent of Wound Bed Yellow/Wh: 5 Wound Drainage Description: Serosanguineous Wound Drainage Amount: Copious Wound Drainage Odor: None/Absent Tissue Surrounding Wound: Macerated Wound General Appearance: Reddened, Draining, Bone Palpable, Muscle Visible Wound Assessment #12: Wound Number: 12 Wound Present on Admission: Yes New Wound: No Status Change of Wound: No Wound Location Body Site Modif: right Wound Location Body Site: scapula Wound Type: pressure ulcer Francis Test: Does not Francis Pressure Ulcer Stage: III Wound Thickness: Full Thickness Wound Length: 2.5 Wound Width: 2.5 Wound Depth: 0.2 Percent of Wound Abbott/Red: 100 Wound Drainage Description: Serosanguineous Wound Drainage Amount: Scant Wound Drainage Odor: None/Absent Tissue Surrounding Wound: scar tissue Wound General Appearance: Reddened, Draining Wound Comment #1 Left lateral malleolus unstageable pressure ulcer #2 Left ear resolving stage IV pressure ulcer #3 Left trochanter unstageable pressure ulcer #4 Left buttock stage III pressure ulcer #5 Sacrococcygeal stage IV pressure ulcer #6 Right trochanter unstageable pressure ulcer #7 Right lateral Knee unstageable pressure ulcer #8 Right Lateral malleolus scar tissue pressure ulcer #9 Right ear scar tissue pressure ulcer #10 Right heel scar tissue pressure ulcer #11 Left heel scar tissue pressure ulcer #12 Right lower leg full thickness scar tissue #13 Right scapula stage III pressure ulcer Recommendation -Local wound care per protocol -Keep clean and dry -Turn and reposition -Optimize nutrition -Offload both heels -Heel protector on both heels -Low air loss mattress -Assess and f/u accordingly for any changes KENN GRACE RN Aug 04, 2017 13:06
[2017-08-04] MEDS: Colistin for inhalation INH SCH ×2 (14:39→21:21)
[2017-08-04 16:00] VITALS: BP 98/62
[2017-08-04 20:00] VITALS: BP 149/71
[2017-08-04] MEDS: Morphine Sulfate 4mg/ml Inj IVP PRN (21:27)
[2017-08-05] VITALS: BP 108/69
[2017-08-05 04:00] VITALS: BP 114/75
[2017-08-05 05:10] LABS: BASOPHILS % (AUTO) 0.5 % (0.0-2.0); EOSINOPHILS % (AUTO) 2.2 % (0.0-3.0); LYMPHOCYTES % (AUTO) 21.3 % (20.0-45.0); MEAN CORPUSCULAR HEMOGLOBIN 29.7 PG (27.0-31.0); MEAN CORPUSCULAR HGB CONC 31.4 G/DL (32.0-36.0); MEAN CORPUSCULAR VOLUME 94 FL (80-99); MEAN PLATELET VOLUME 5.3 FL (6.5-10.1); MONOCYTES % (AUTO) 12.4 % (1.0-10.0); NEUTROPHILS % (AUTO) 63.7 % (45.0-75.0); PLATELET COUNT 487 K/UL (150-450); RED BLOOD COUNT 3.03 M/UL (4.70-6.10); RED CELL DISTRIBUTION WIDTH 16.5 % (11.6-14.8); WHITE BLOOD COUNT 10.4 K/UL (4.8-10.8)
[2017-08-05 05:32] LABS: ALANINE AMINOTRANSFERASE 20 U/L (3-41); ALBUMIN/GLOBULIN RATIO 0.7 (1.0-2.7); ANION GAP 14 (5-15); ASPARTATE AMINO TRANSFERASE 17 U/L (5-40); CALCIUM 9.4 mg/dL (8.6-10.2); CARBON DIOXIDE 27 mEQ/L (20-30); CHLORIDE 106 mEQ/L (98-107); HEMOLYSIS 2; POTASSIUM 3.3 mEQ/L (3.4-4.9); SODIUM 147 mEQ/L (135-145); TOTAL PROTEIN 7.3 g/dL (6.6-8.7)
[2017-08-05 06:11] LABS: CREATININE 0.7 mg/dL (0.7-1.2); GLOMERULAR FILTRATION RATE > 60 mL/min (>60)
[2017-08-05] MEDS: Piperacillin/Tazobactam 3.375 GM in NS 110 ML IVPB SCH ×3 (06:29→22:09)
[2017-08-05 08:00] VITALS: BP 100/60
[2017-08-05] MEDS: Lisinopril 10mg tab GT SCH (09:00)
[2017-08-05] MEDS: Amiodarone 200mg tab GT SCH (09:27)
[2017-08-05] MEDS: Heparin 5000 units/ml inj SUBQ SCH ×2 (09:28→20:12)
[2017-08-05] MEDS: levETIRAcetam 500mg/5ml Liquid GT SCH ×2 (09:29→20:09)
[2017-08-05] MEDS: Furosemide 40mg tab GT SCH (09:29)
[2017-08-05] MEDS: Colistin for inhalation INH SCH ×2 (10:08→21:24)
[2017-08-05] MEDS: KCl 10% 40mEq/30ml liquid NG SCH ×2 (11:10→14:43)
--- NOTE | 2017-08-05 11:22 | Diagnostic Imaging Report ---
Indication: DYSPNEA Technique: One view of the chest Comparison: none Findings: Lungs and pleural spaces are clear. Heart size is normal. Tracheostomy, left chest AICD again demonstrated. There is ration on the current previous exam. Impression: No acute process
[2017-08-05 12:01] VITALS: BP 107/68
[2017-08-05] MEDS ORDERED: Vancomycin 750mg/NS 250ml IVPB SCH (15:00)
--- NOTE | 2017-08-05 15:10 | Pulmonology Progress Note ---
Assessment/Plan Problems: (1) MDRO (multiple drug resistant organisms) resistance (2) Healthcare-associated pneumonia (3) Leukocytosis (4) Acute on chronic respiratory failure (5) Atrial fibrillation (6) EF of 30 (7) Feeding by G-tube (8) Anemia Respiratory: monitor respiratory rate, adjust FIO2 Cardiac: continue to monitor HR/BP Renal: F/U I&O Infectious Disease: check cultures, continue antibiotics, other - GNR in sputum pending Id Gastrointestinal: continue feedings/current rate Endocrine: monitor blood sugar, check TSH, continue sliding scale insulin Hematologic: transfuse if hgb<8.5 Neurologic: PRN Ativan, PRN Morphine, keep patient comfortable Prophylaxis: Protonix Disposition: keep in ICU Notes Reviewed: power superintendent, cardio Discussed with: nurses, consultants, case resolution specialist Subjective ROS Limited/Unobtainable: No Constitutional: Reports: no symptoms HEENT: Repors: no symptoms Respiratory: Reports: no symptoms Allergies: Coded Allergies: No Known Allergies (Unverified , 03/07/17) Objective Last 24 Hour Vital Signs Date Time Temp Pulse Resp B/P (MAP) Pulse Ox O2 Delivery O2 Flow Rate FiO2 08/05/17 12:53 92 16 30 08/05/17 12:01 97.6 100 19 107/68 100 Mechanical Ventilator 30 08/05/17 12:01 100 08/05/17 12:01 30 08/05/17 11:00 95 16 30 08/05/17 10:10 95 16 100 Mechanical Ventilator 30 08/05/17 09:45 94 16 100 Mechanical Ventilator 30 08/05/17 09:29 93 16 30 08/05/17 09:00 100/60 08/05/17 09:00 91 100/60 08/05/17 08:00 30 08/05/17 08:00 91 08/05/17 08:00 97.8 91 18 100/60 100 Mechanical Ventilator 30 08/05/17 07:28 105 16 30 08/05/17 05:24 90 16 30 08/05/17 04:00 86 08/05/17 04:00 97.5 93 16 114/75 100 Mechanical Ventilator 30 08/05/17 04:00 30 08/05/17 02:51 88 16 30 08/05/17 01:45 91 16 30 08/05/17 00:00 97.7 93 16 108/69 100 Mechanical Ventilator 30 08/04/17 22:31 99 22 30 08/04/17 21:57 97.9 08/04/17 21:32 97 16 100 Mechanical Ventilator 30 08/04/17 21:26 107 149/71 08/04/17 21:22 107 24 30 08/04/17 21:22 104 16 99 Mechanical Ventilator 30 08/04/17 20:00 30 08/04/17 20:00 97.9 96 16 149/71 100 Mechanical Ventilator 30 08/04/17 20:00 96 08/04/17 19:25 93 17 30 08/04/17 17:19 97 16 30 08/04/17 16:00 92 08/04/17 16:00 30 08/04/17 16:00 98.6 97 16 98/62 100 Mechanical Ventilator 30 General Appearance: WD/WN, no acute distress HEENT: normocephalic, atraumatic Respiratory/Chest: chest wall non-tender, lungs clear Cardiovascular: normal peripheral pulses, normal rate Abdomen: soft, non tender, no organomegaly Genitourinary: normal external genitalia Extremities: no cyanosis Skin: no rash, no ulcers Microbiology Date/Time Source Procedure Growth Status 08/03/17 01:30 Sputum Gram Stain - Final Resulted 08/03/17 01:30 Sputum Culture - Preliminary Gram Negative Bacillus 1 Gram Negative Bacillus 2 Resulted Laboratory Tests 08/04/17 17:07: Vancomycin Level Trough 28.3H 08/05/17 03:30: White Blood Count 10.4, Red Blood Count 3.03L, Hemoglobin 9.0L, Hematocrit 28.6L , Mean Corpuscular Volume 94, Mean Corpuscular Hemoglobin 29.7, Mean Corpuscular Hemoglobin Concent 31.4L, Red Cell Distribution Width 16.5H, Platelet Count 487H, Mean Platelet Volume 5.3L, Neutrophils (%) (Auto) 63.7, Lymphocytes (%) (Auto) 21.3, Monocytes (%) (Auto) 12.4H, Eosinophils (%) (Auto) 2.2, Basophils (%) (Auto) 0.5, Sodium Level 147H, Potassium Level 3.3L, Chloride Level 106, Carbon Dioxide Level 27, Anion Gap 14, Blood Urea Nitrogen 17, Creatinine 0.7, Estimat Glomerular Filtration Rate > 60, Glucose Level 97, Calcium Level 9.4, Total Bilirubin 0.2, Aspartate Amino Transf (AST/SGOT) 17, Alanine Aminotransferase (ALT/SGPT) 20, Alkaline Phosphatase 142H, Pro-B-Type Natriuretic Peptide 1454H, Total Protein 7.3, Albumin 3.1L, Globulin 4.2, Albumin/Globulin Ratio 0.7L, Random Vancomycin Level 22.3 Current Medications Medications (Trade) Dose Ordered Sig/Tameka Route PRN Reason Start Time Stop Time Status Last Admin Dose Admin Acetaminophen (Tylenol) 650 mg Q4H PRN ORAL FEVER 08/01/17 13:00 08/31/17 12:59 Albuterol/ Ipratropium (DuoNeb 0.5-3(2.5)mg/3ml) 3 ml Q4H PRN HHN Shortness of Breath 08/01/17 13:00 08/06/17 12:59 Amiodarone HCl (Cordarone) 200 mg DAILY GT 08/02/17 09:00 09/01/17 08:59 08/05/17 09:27 Carvedilol (Coreg) 3.125 mg Q12HR GT 08/01/17 21:00 08/31/17 20:59 08/04/17 21:26 Colistimethate Sodium (Colistin *inhalation use only*) 150 mg Q12HR@10,22 INH 08/04/17 11:00 08/11/17 10:59 08/05/17 10:08 Dextrose (Dextrose 50%) STAT PRN IV Hypoglycemia 08/01/17 13:00 08/31/17 12:59 Furosemide (Lasix) 60 mg DAILY GT 08/02/17 09:00 09/01/17 08:59 08/05/17 09:29 Heparin Sodium (Porcine) (Heparin 5000 units/ml) 5,000 units EVERY 12 HOURS SUBQ 08/01/17 21:00 08/31/17 20:59 08/05/17 09:28 Lansoprazole (Prevacid) 30 mg DAILY GT 08/02/17 09:00 09/01/17 08:59 08/05/17 09:28 Levetiracetam (Keppra) 500 mg Q12HR GT 08/01/17 21:00 08/31/17 20:59 08/05/17 09:29 Lisinopril (Zestril) 10 mg DAILY GT 08/02/17 09:00 09/01/17 08:59 08/04/17 08:24 Lorazepam (Ativan 2mg/ml 1ml) 2 mg Q2H PRN IV For Anxiety 08/01/17 13:00 08/08/17 12:59 Morphine Sulfate (Morphine Sulfate) 4 mg Q4H PRN IVP Severe Pain (Pain Scale 7-10) 08/01/17 13:00 08/08/17 12:59 08/04/17 21:27 Ondansetron HCl (Zofran) 4 mg Q6H PRN IVP Nausea & Vomiting 08/01/17 13:00 08/31/17 12:59 Piperacillin Sod/ Tazobactam Sod 3.375 gm/Sodium Chloride 110 ml @ 27.5 mls/hr Q8HR IVPB 08/01/17 15:00 08/08/17 14:59 08/05/17 13:39 Polyethylene Glycol (Miralax) 17 gm DAILYPRN PRN GT Constipation 08/01/17 13:00 08/31/17 12:59 Vancomycin HCl (Vanco rx to dose) 1 ea DAILYPRN PRN MISC RX TO DOSE PROTOCOL 08/01/17 14:15 08/31/17 14:14 Vancomycin/Sodium Chloride 250 ml @ 166.667 mls/hr Q36H IVPB 08/05/17 15:00 08/10/17 14:59 08/05/17 14:41 ODETTE SMILEY Aug 05, 2017 15:10
[2017-08-05] MEDS ORDERED: NS 275ml ONE (15:17)
[2017-08-05 16:00] VITALS: BP 107/68
--- NOTE | 2017-08-05 17:10 | Infectious Diseases Prog Note ---
Assessment/Plan Assessment/Plan ASSESSMENT: // mild leukocytosis ,SP // Possible recurrent HCAP / VAP - SCx : GNR x 2 - CXR 08/01: Questionable right basilar patchy infiltrate - h/o MDR-ACB, KPC, Providencia, XDR Pseudomonas // Chronic sacrococcygeal osteomyelitis - previous evaluation by surgery deemed not a surgical candidate - CT with contrast--some sacral/coccygeal erosion, but no abscess. no profound progression. - h/o MDR ACB, C albicans, and KPC (sensitive only to colistin) // Multiple decubiti POA, not grossly infected // h/o Coag neg staph RUE PICC associated bacteremia r/o recurrence - surveillance BCx NGTD // h/o MDR Klebsiella and zosyn resistant Pseudomonas asymptomatic bacteriuria r /o recurrence - surveillance UA(-) // HCV Ab+, no transaminitis currently // Negative HIV // Afebrile without leukocytosis Chronic VDRF SP trach, PEG Chronic anoxic encephalopathy SP cardiac arrest Elevated ESR - worse Reactive thrombocytosis Cachexia with elevated CEA, normal PSA Acute on chronic anemia - Hgb stable Sinus tachycardia Chronic systolic CHF, EF 30% SP AICD Paroxysmal Afib Assisted resident MDRO colonized NKDA Full code PLAN: --Continue empiric zosyn d# 5 , colistin d# 2 ( Hx of MDR GNR in the past ) , DC IV vancomycin d# 5 --f/u cultures --monitor CBC, temperatures --monitor BMP --Monitor CXR --Ventilatory support, tracheostomy care, aspiration precautions. --wound care Subjective Constitutional: Denies: no symptoms, fever, chills, fatigue, anorexia, drenching sweats, other Allergies: Coded Allergies: No Known Allergies (Unverified , 03/07/17) Objective Vital Signs Last 24 Hour Vital Signs Date Time Temp Pulse Resp B/P (MAP) Pulse Ox O2 Delivery O2 Flow Rate FiO2 08/05/17 17:03 102 16 30 08/05/17 16:00 30 08/05/17 16:00 97.8 98 20 107/68 100 Mechanical Ventilator 30 08/05/17 16:00 98 08/05/17 15:15 94 16 30 08/05/17 12:53 92 16 30 08/05/17 12:01 97.6 100 19 107/68 100 Mechanical Ventilator 30 08/05/17 12:01 100 08/05/17 12:01 30 08/05/17 11:00 95 16 30 08/05/17 10:10 95 16 100 Mechanical Ventilator 30 08/05/17 09:45 94 16 100 Mechanical Ventilator 30 08/05/17 09:29 93 16 30 08/05/17 09:00 100/60 08/05/17 09:00 91 100/60 08/05/17 08:00 30 08/05/17 08:00 91 08/05/17 08:00 97.8 91 18 100/60 100 Mechanical Ventilator 30 08/05/17 07:28 105 16 30 08/05/17 05:24 90 16 30 08/05/17 04:00 86 08/05/17 04:00 97.5 93 16 114/75 100 Mechanical Ventilator 30 08/05/17 04:00 30 08/05/17 02:51 88 16 30 08/05/17 01:45 91 16 30 08/05/17 00:00 97.7 93 16 108/69 100 Mechanical Ventilator 30 08/04/17 22:31 99 22 30 08/04/17 21:57 97.9 08/04/17 21:32 97 16 100 Mechanical Ventilator 30 08/04/17 21:26 107 149/71 08/04/17 21:22 107 24 30 08/04/17 21:22 104 16 99 Mechanical Ventilator 30 08/04/17 20:00 30 08/04/17 20:00 97.9 96 16 149/71 100 Mechanical Ventilator 30 08/04/17 20:00 96 08/04/17 19:25 93 17 30 08/04/17 17:19 97 16 30 Height (Feet): 5 Height (Inches): 9.00 Weight (Pounds): 124 HEENT: atraumatic Respiratory/Chest: normal breath sounds Cardiovascular: regularly irregular Abdomen: no organomegaly Microbiology Date/Time Source Procedure Growth Status 08/03/17 01:30 Sputum Gram Stain - Final Resulted 08/03/17 01:30 Sputum Culture - Preliminary Gram Negative Bacillus 1 Gram Negative Bacillus 2 Resulted Laboratory Tests Test 08/05/17 03:30 White Blood Count 10.4 K/UL (4.8-10.8) Red Blood Count 3.03 M/UL (4.70-6.10) L Hemoglobin 9.0 G/DL (14.2-18.0) L Hematocrit 28.6 % (42.0-52.0) L Mean Corpuscular Volume 94 FL (80-99) Mean Corpuscular Hemoglobin 29.7 PG (27.0-31.0) Mean Corpuscular Hemoglobin Concent 31.4 G/DL (32.0-36.0) L Red Cell Distribution Width 16.5 % (11.6-14.8) H Platelet Count 487 K/UL (150-450) H Mean Platelet Volume 5.3 FL (6.5-10.1) L Neutrophils (%) (Auto) 63.7 % (45.0-75.0) Lymphocytes (%) (Auto) 21.3 % (20.0-45.0) Monocytes (%) (Auto) 12.4 % (1.0-10.0) H Eosinophils (%) (Auto) 2.2 % (0.0-3.0) Basophils (%) (Auto) 0.5 % (0.0-2.0) Sodium Level 147 mEQ/L (135-145) H Potassium Level 3.3 mEQ/L (3.4-4.9) L Chloride Level 106 mEQ/L (98-107) Carbon Dioxide Level 27 mEQ/L (20-30) Anion Gap 14 (5-15) Blood Urea Nitrogen 17 mg/dL (7-23) Creatinine 0.7 mg/dL (0.7-1.2) Estimat Glomerular Filtration Rate > 60 mL/min (>60) Glucose Level 97 mg/dL (74-106) Calcium Level 9.4 mg/dL (8.6-10.2) Total Bilirubin 0.2 mg/dL (0.0-1.2) Aspartate Amino Transf (AST/SGOT) 17 U/L (5-40) Alanine Aminotransferase (ALT/SGPT) 20 U/L (3-41) Alkaline Phosphatase 142 U/L (40-129) H Pro-B-Type Natriuretic Peptide 1454 pg/mL (0-125) H Total Protein 7.3 g/dL (6.6-8.7) Albumin 3.1 g/dL (3.5-5.2) L Globulin 4.2 g/dL Albumin/Globulin Ratio 0.7 (1.0-2.7) L Random Vancomycin Level 22.3 ug/mL Current Medications Medications (Trade) Dose Ordered Sig/Tameka Route PRN Reason Start Time Stop Time Status Last Admin Dose Admin Acetaminophen (Tylenol) 650 mg Q4H PRN ORAL FEVER 08/01/17 13:00 08/31/17 12:59 Albuterol/ Ipratropium (DuoNeb 0.5-3(2.5)mg/3ml) 3 ml Q4H PRN HHN Shortness of Breath 08/01/17 13:00 08/06/17 12:59 Amiodarone HCl (Cordarone) 200 mg DAILY GT 08/02/17 09:00 09/01/17 08:59 08/05/17 09:27 Carvedilol (Coreg) 3.125 mg Q12HR GT 08/01/17 21:00 08/31/17 20:59 08/04/17 21:26 Colistimethate Sodium (Colistin *inhalation use only*) 150 mg Q12HR@10,22 INH 08/04/17 11:00 08/11/17 10:59 08/05/17 10:08 Dextrose (Dextrose 50%) STAT PRN IV Hypoglycemia 08/01/17 13:00 08/31/17 12:59 Furosemide (Lasix) 60 mg DAILY GT 08/02/17 09:00 09/01/17 08:59 08/05/17 09:29 Heparin Sodium (Porcine) (Heparin 5000 units/ml) 5,000 units EVERY 12 HOURS SUBQ 08/01/17 21:00 08/31/17 20:59 08/05/17 09:28 Lansoprazole (Prevacid) 30 mg DAILY GT 08/02/17 09:00 09/01/17 08:59 08/05/17 09:28 Levetiracetam (Keppra) 500 mg Q12HR GT 08/01/17 21:00 08/31/17 20:59 08/05/17 09:29 Lisinopril (Zestril) 10 mg DAILY GT 08/02/17 09:00 09/01/17 08:59 08/04/17 08:24 Lorazepam (Ativan 2mg/ml 1ml) 2 mg Q2H PRN IV For Anxiety 08/01/17 13:00 08/08/17 12:59 Morphine Sulfate (Morphine Sulfate) 4 mg Q4H PRN IVP Severe Pain (Pain Scale 7-10) 08/01/17 13:00 08/08/17 12:59 08/04/17 21:27 Ondansetron HCl (Zofran) 4 mg Q6H PRN IVP Nausea & Vomiting 08/01/17 13:00 08/31/17 12:59 Piperacillin Sod/ Tazobactam Sod 3.375 gm/Sodium Chloride 110 ml @ 27.5 mls/hr Q8HR IVPB 08/01/17 15:00 08/08/17 14:59 08/05/17 13:39 Polyethylene Glycol (Miralax) 17 gm DAILYPRN PRN GT Constipation 08/01/17 13:00 08/31/17 12:59 Vancomycin HCl (Vanco rx to dose) 1 ea DAILYPRN PRN MISC RX TO DOSE PROTOCOL 08/01/17 14:15 08/31/17 14:14 Vancomycin/Sodium Chloride 250 ml @ 166.667 mls/hr Q36H IVPB 08/05/17 15:00 08/10/17 14:59 08/05/17 14:41 MARCUS PA M.D. Aug 05, 2017 17:10
[2017-08-05 20:00] VITALS: BP 128/66
[2017-08-05] MEDS: Morphine Sulfate 4mg/ml Inj IVP PRN (20:10)
[2017-08-06] VITALS: BP 108/70
[2017-08-06] MEDS: Morphine Sulfate 4mg/ml Inj IVP PRN (01:58)
[2017-08-06 04:00] VITALS: BP 113/81
[2017-08-06] MEDS: Piperacillin/Tazobactam 3.375 GM in NS 110 ML IVPB SCH ×2 (06:06→14:22)
[2017-08-06 08:12] VITALS: BP 105/67
[2017-08-06 08:53] LABS: BASOPHILS % (AUTO) 0.6 % (0.0-2.0); EOSINOPHILS % (AUTO) 1.3 % (0.0-3.0); MEAN CORPUSCULAR HEMOGLOBIN 29.5 PG (27.0-31.0); MEAN CORPUSCULAR HGB CONC 30.9 G/DL (32.0-36.0); MEAN CORPUSCULAR VOLUME 95 FL (80-99); MEAN PLATELET VOLUME 4.8 FL (6.5-10.1); MONOCYTES % (AUTO) 10.3 % (1.0-10.0); NEUTROPHILS % (AUTO) 74.9 % (45.0-75.0); PLATELET COUNT 530 K/UL (150-450); RED CELL DISTRIBUTION WIDTH 16.8 % (11.6-14.8); WHITE BLOOD COUNT 14.6 K/UL (4.8-10.8)
[2017-08-06 09:04] LABS: ANION GAP 10 (5-15); CALCIUM 9.9 mg/dL (8.6-10.2); CARBON DIOXIDE 29 mEQ/L (20-30); CHLORIDE 110 mEQ/L (98-107); CREATININE 0.8 mg/dL (0.7-1.2); GLOMERULAR FILTRATION RATE > 60 mL/min (>60); HEMOLYSIS 0; POTASSIUM 4.2 mEQ/L (3.4-4.9); SODIUM 149 mEQ/L (135-145)
[2017-08-06] MEDS: Furosemide 40mg tab GT SCH (09:16)
[2017-08-06] MEDS: levETIRAcetam 500mg/5ml Liquid GT SCH (09:16)
[2017-08-06] MEDS: Amiodarone 200mg tab GT SCH (09:16)
[2017-08-06] MEDS: Lisinopril 10mg tab GT SCH (09:17)
[2017-08-06] MEDS: Heparin 5000 units/ml inj SUBQ SCH (09:18)
[2017-08-06] MEDS: Colistin for inhalation INH SCH (09:22)
--- NOTE | 2017-08-06 10:49 | Pulmonology Progress Note ---
Assessment/Plan Problems: (1) MDRO (multiple drug resistant organisms) resistance (2) Healthcare-associated pneumonia (3) Leukocytosis (4) Acute on chronic respiratory failure (5) Atrial fibrillation (6) EF of 30 (7) Feeding by G-tube (8) Anemia Respiratory: monitor respiratory rate, adjust FIO2 Cardiac: continue to monitor HR/BP Renal: F/U I&O, keep IV fluid Infectious Disease: check cultures Gastrointestinal: continue feedings/current rate, hold feedings Endocrine: monitor blood sugar, check TSH, continue sliding scale insulin Hematologic: monitor H/H, transfuse if hgb<8.5 Neurologic: PRN Ativan, PRN Morphine, keep patient comfortable Affect: PRN ativan Prophylaxis: Protonix Notes Reviewed: cellar supervisor, renal Discussed with: nurses, consultants, pillowcase sewer Subjective ROS Limited/Unobtainable: Yes Constitutional: Reports: no symptoms HEENT: Repors: no symptoms Respiratory: Reports: no symptoms Allergies: Coded Allergies: No Known Allergies (Unverified , 03/07/17) Objective Last 24 Hour Vital Signs Date Time Temp Pulse Resp B/P (MAP) Pulse Ox O2 Delivery O2 Flow Rate FiO2 08/06/17 10:30 109 18 30 08/06/17 09:33 96 18 98 Mechanical Ventilator 30 08/06/17 09:23 11 21 96 Mechanical Ventilator 30 08/06/17 09:17 114/64 08/06/17 09:17 111 114/64 08/06/17 08:52 111 18 30 08/06/17 08:12 97.7 113 17 105/67 99 Mechanical Ventilator 30 08/06/17 08:00 112 08/06/17 08:00 30 08/06/17 07:01 107 17 30 08/06/17 05:15 111 19 30 08/06/17 04:00 30 08/06/17 04:00 30 08/06/17 04:00 98.2 104 20 113/81 99 Mechanical Ventilator 30 08/06/17 04:00 100 08/06/17 03:20 102 16 30 08/06/17 02:28 98.2 08/06/17 01:25 95 16 30 08/06/17 00:00 98 08/06/17 00:00 98.2 101 20 108/70 99 Mechanical Ventilator 30 08/06/17 00:00 30 08/05/17 23:13 92 16 30 08/05/17 21:34 99 16 100 Mechanical Ventilator 30 08/05/17 21:25 99 16 30 08/05/17 21:24 98 16 100 Mechanical Ventilator 30 08/05/17 20:10 103 128/66 08/05/17 20:00 30 08/05/17 20:00 106 08/05/17 20:00 99.3 103 20 128/66 97 Mechanical Ventilator 30 08/05/17 19:04 108 23 30 08/05/17 17:03 102 16 30 08/05/17 16:00 30 08/05/17 16:00 97.8 98 20 107/68 100 Mechanical Ventilator 30 08/05/17 16:00 98 08/05/17 15:15 94 16 30 08/05/17 12:53 92 16 30 08/05/17 12:01 97.6 100 19 107/68 100 Mechanical Ventilator 30 08/05/17 12:01 100 08/05/17 12:01 30 08/05/17 11:00 95 16 30 General Appearance: cachetic HEENT: normocephalic, atraumatic Respiratory/Chest: chest wall non-tender, lungs clear Cardiovascular: normal peripheral pulses, normal rate Abdomen: normal bowel sounds, no organomegaly Extremities: no clubbing Skin: no ulcers 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: senior 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 normal, no motor/sensory deficits Laboratory Tests 08/06/17 08:20: White Blood Count 14.6H, Red Blood Count 3.20L, Hemoglobin 9.4L, Hematocrit 30.5L, Mean Corpuscular Volume 95, Mean Corpuscular Hemoglobin 29.5, Mean Corpuscular Hemoglobin Concent 30.9L, Red Cell Distribution Width 16.8H, Platelet Count 530H, Mean Platelet Volume 4.8L, Neutrophils (%) (Auto) 74.9, Lymphocytes (%) (Auto) 13.0L, Monocytes (%) (Auto) 10.3H, Eosinophils (%) (Auto ) 1.3, Basophils (%) (Auto) 0.6, Sodium Level 149H, Potassium Level 4.2, Chloride Level 110H, Carbon Dioxide Level 29, Anion Gap 10, Blood Urea Nitrogen 21, Creatinine 0.8, Estimat Glomerular Filtration Rate > 60, Glucose Level 134H , Calcium Level 9.9 Current Medications Medications (Trade) Dose Ordered Sig/Tameka Route PRN Reason Start Time Stop Time Status Last Admin Dose Admin Acetaminophen (Tylenol) 650 mg Q4H PRN ORAL FEVER 08/01/17 13:00 08/31/17 12:59 Albuterol/ Ipratropium (DuoNeb 0.5-3(2.5)mg/3ml) 3 ml Q4H PRN HHN Shortness of Breath 08/01/17 13:00 08/06/17 12:59 Amiodarone HCl (Cordarone) 200 mg DAILY GT 08/02/17 09:00 09/01/17 08:59 08/06/17 09:16 Carvedilol (Coreg) 3.125 mg Q12HR GT 08/01/17 21:00 08/31/17 20:59 08/06/17 09:17 Colistimethate Sodium (Colistin *inhalation use only*) 150 mg Q12HR@10,22 INH 08/04/17 11:00 08/11/17 10:59 08/06/17 09:22 Dextrose (Dextrose 50%) STAT PRN IV Hypoglycemia 08/01/17 13:00 08/31/17 12:59 Furosemide (Lasix) 60 mg DAILY GT 08/02/17 09:00 09/01/17 08:59 08/06/17 09:16 Heparin Sodium (Porcine) (Heparin 5000 units/ml) 5,000 units EVERY 12 HOURS SUBQ 08/01/17 21:00 08/31/17 20:59 08/06/17 09:18 Lansoprazole (Prevacid) 30 mg DAILY GT 08/02/17 09:00 09/01/17 08:59 08/06/17 09:16 Levetiracetam (Keppra) 500 mg Q12HR GT 08/01/17 21:00 08/31/17 20:59 08/06/17 09:16 Lisinopril (Zestril) 10 mg DAILY GT 08/02/17 09:00 09/01/17 08:59 08/06/17 09:17 Lorazepam (Ativan 2mg/ml 1ml) 2 mg Q2H PRN IV For Anxiety 08/01/17 13:00 08/08/17 12:59 Morphine Sulfate (Morphine Sulfate) 4 mg Q4H PRN IVP Severe Pain (Pain Scale 7-10) 08/01/17 13:00 08/08/17 12:59 08/06/17 01:58 Ondansetron HCl (Zofran) 4 mg Q6H PRN IVP Nausea & Vomiting 08/01/17 13:00 08/31/17 12:59 Piperacillin Sod/ Tazobactam Sod 3.375 gm/Sodium Chloride 110 ml @ 27.5 mls/hr Q8HR IVPB 08/01/17 15:00 08/08/17 14:59 08/06/17 06:06 Polyethylene Glycol (Miralax) 17 gm DAILYPRN PRN GT Constipation 08/01/17 13:00 08/31/17 12:59 ODETTE SMILEY Aug 06, 2017 10:49
[2017-08-06 11:40] VITALS: BP 116/58
[2017-08-06] MEDS ORDERED: Tubing IV Secondary IV ONE (15:12)
[2017-08-06] MEDS ORDERED: NS 275ml ONE (15:12)
[2017-08-06 16:00] VITALS: BP 89/59
--- NOTE | 2017-08-08 09:06 | Discharge Summary ---
Discharge Summary Hospital Course Date of Admission Aug 01, 2017 at 12:33 Date of Discharge Aug 06, 2017 at 19:30 Admitting Diagnosis sepsis , tracheostomy HPI Yamil Wells is a 57 year old male who was admitted on Aug 01, 2017 at 12:33 for Sepsis,Tracheostomy Hospital Course [id number] Discharge Discharge Disposition Patient was discharged to SNF/Subacute Facility(03) Discharge Diagnoses: Miriam Lazo NP Aug 08, 2017 09:06
--- NOTE | 2017-08-09 03:00 | Discharge Summary 2 SIG ---
DATE OF ADMISSION: 08/01/2017 DATE OF DISCHARGE: 08/06/2017 CONSULTANTS: 1. Zev Wells M.D. 2. Joseph Bobby M.D. Brief Hospital Course: The patient is a 57-year-old male with a history of chronic respiratory failure status post tracheostomy and percutaneous endoscopic gastrostomy, presented to ED due to abnormal blood work. He is a resident of [facility] and on evaluation at ED, blood work showed anemia, hemoglobin of 8.3 and hematocrit of 26. Chest x-ray showed right lower lobe atelectasis. EKG was in normal sinus rhythm. He was admitted for anemia. He was also found to have leukocytosis at skilled nursing, however, WBC on admission was normal. Dr. Bobby was consulted. The patient has a previous gastrostomy tube, which was well functioning, however, he had two other tubes in the right side of the abdomen. On evaluation, there were two red Burrell catheter retention-suture bridges. There was a healed midline wound from gastrostomy placement. Retention sutures were removed as well as the bridges. There was no acute surgical intervention needed. He was started empirically on IV vancomycin and Zosyn for possible recurrent healthcare-associated/ventilator-associated pneumonia. He also came in with multiple pressure ulcers. He was given wound care. Sputum culture showed growth of gram-negative rods x2. Blood cultures did not isolate any growth. He was given colistin and Zosyn. He was eventually discharged back to skilled nursing. FINAL DIAGNOSES: 1. Healthcare-associated/ventilator-associated pneumonia. 2. Multidrug-resistant organism infection. 3. Lcipm-oc-dhmjcjn respiratory failure. 4. Atrial fibrillation. 5. Feeding via gastrostomy tube. 6. Anemia. 7. Multiple decubiti pressure ulcers present on admission. 8. Chronic anoxic encephalopathy status post cardiac arrest. 9. Reactive thrombocytosis. 10. Qerga-nh-dgrquey anemia. 11. Chronic systolic congestive heart failure, ejection fraction 30%. 12. alf resident. DISPOSITION: The patient was discharged to [facility]. Shani Moses M.D. I have been assigned to dictate discharge summary on this account and I was not involved in the patient's management. Miriam Lazo N.P. DR: KATIANA JOB#: [id number] CC: DEMAR
--- NOTE | 2017-08-10 22:17 | Diagnostic Imaging Report ---
APPROVED REPORT CPT Code: 79925 Present Symptoms Comments: R/O DVT BILATERAL: Imaging reveals a patent deep venous system bilaterally. There is no evidence of thrombus within the femoral, popliteal or tibial segments. The greater saphenous veins are also within normal limits. Doppler indicates normal spontaneous flow within these segments.
== END 2017-08-06 19:30 | DRG 130 ==
LOC: EDBD 10:22 → EMR 11:50 → EDBEDREQ 11:58 → 2W 12:33 → EDBEDREQ 13:00 → 2W 08-02 00:26
PROC: 5A1955Z Respiratory Ventilation, Greater than 96 Consecutive Hours (ICD-10-PCS; principal; 2017-08-01)
DX: J15.6 Pneumonia due to other Gram-negative bacteria (principal); G93.1 Anoxic brain damage, not elsewhere classified; L89.154 Pressure ulcer of sacral region, stage 4; L89.814 Pressure ulcer of head, stage 4; J96.20 Acute and chronic respiratory failure, unspecified whether with hypoxia or hypercapnia; L89.210 Pressure ulcer of right hip, unstageable; L89.323 Pressure ulcer of left buttock, stage 3; L89.113 Pressure ulcer of right upper back, stage 3; I50.22 Chronic systolic (congestive) heart failure; Z16.24 Resistance to multiple antibiotics; L89.220 Pressure ulcer of left hip, unstageable; Z43.1 Encounter for attention to gastrostomy; M46.28 Osteomyelitis of vertebra, sacral and sacrococcygeal region; L89.520 Pressure ulcer of left ankle, unstageable; Z79.01 Long term (current) use of anticoagulants; Z43.0 Encounter for attention to tracheostomy; L89.890 Pressure ulcer of other site, unstageable; Z99.11 Dependence on respirator [ventilator] status; I48.0 Paroxysmal atrial fibrillation; D63.8 Anemia in other chronic diseases classified elsewhere; Z95.810 Presence of automatic (implantable) cardiac defibrillator; Z86.74 Personal history of sudden cardiac arrest
CPT/HCPCS: 36415; 71010; 80048; 80053; 80069; 80202; 81003; 82270; 82378; 82550; 82553; 82607; 82746; 83540; 83550; 83605; 83615; 83735; 83880; 84100; 84484; 85025; 85044; 85060; 85610; 85651; 85730; 87040; 87070; 87081; 87181; 87205; 93005; 93970; 94002; 94003; 94640; 99285

== ENCOUNTER 2017-09-01 10:45 | Inpatient (IN) | payer OTHER ==
[~2017-09-01] VITALS: Ht 170.2 cm; Wt 71.7 kg
[~2017-09-01 10:45] MED LIST changes: +JEVITY 1.2 CA1500 ML GT; +NORCO 5-325 TA1 EAC1 GT
[2017-09-01 11:01] VITALS: BP 95/58
--- NOTE | 2017-09-01 11:02 | Emergency Room Report ---
History of Present Illness General Chief Complaint: Pacemaker/Defibrillator Source: Medical Record, EMS Present Illness HPI 57-year-old male with a history of resp failure with trach, PEG, pressure ulcers , coming [place], sent to hospital for eval of PPM and defibrillator. Pt recently admitted to hospital and DCed end of jul for Sepsis 2/2 to HCAP no other hx able to be obtained as pt unable to speak d/w trachl Allergies: Coded Allergies: No Known Allergies (Unverified , 03/07/17) Patient History Past Medical History: see triage record Past Surgical History: none Pertinent Family History: none Reviewed Nursing Documentation: PMH: Agreed, PSxH: Agreed Nursing Documentation-PMH Hx Cardiac Problems: Yes - Afib; Cardiomyapathy Hx Hypertension: Yes - Anemia Hx Pacemaker: Yes - Defibrillator Hx COPD: Yes - Resp failure, vent dep.. PNA Hx Diabetes: No Hx Gastrointestinal Problems: Yes - GT; Cirrhosis History Of Psychiatric Problem: Yes - Anxiety Disorder Hx Neurological Problems: Yes - ENCEPHALOPATHY Hx Cerebrovascular Accident: Yes Hx Seizures: Yes Review of Systems All Other Systems: limited - trached Physical Exam Vital Signs Date Time Temp Pulse Resp B/P (MAP) Pulse Ox O2 Delivery O2 Flow Rate FiO2 09/01/17 10:45 102 20 Mechanical Ventilator 30 Sp02 EP Interpretation: reviewed, normal - satting 100 on 30% FIO2 on vent General Appearance: alert, non-toxic, other - Chronically ill-appearing thin middle aged male, trach, awake, somewhat answering questions with yes or no head motion Head: normocephalic, atraumatic Eyes: bilateral eye normal inspection, bilateral eye PERRL, bilateral eye EOMI ENT: moist mucus membranes, other - trached Neck: supple, other - trached Respiratory: lungs clear, no retraction, other - mechanical breath sounds b/l, chest symmetrical Cardiovascular #1: no edema, normal capillary refill, tachycardia Cardiovascular #2: 2+ radial (R), 2+ radial (L) Gastrointestinal: non tender, soft, non-distended, no guarding, other - peg tube Musculoskeletal: other - contracted lower ext Neurologic: responsive, sensory intact, other - unable to fully Psychiatric: normal inspection, judgement/insight normal, memory normal Skin: normal inspection, normal color, no rash, warm/dry, well hydrated, normal turgor Medical Decision Making Diagnostic Impression: Primary Impression: Anemia Additional Impressions: Respiratory failure Tracheostomy dependence Pacemaker failure ER Course 57-year-old male trach, Peg, here for pacemaker interrogation DDX: Patient found to be tachycardic Rule out fever/infectious source such as UTI pneumonia Pacemaker will be interrogated in patient Plan: Obtain labs, ua, EKG, CXR ER course: Patient has been monitored during ED stay, HD stable Patient has otherwise been stable in the emergency room, on vent BP 100/60 Disposition: Patient is to be admitted to [facility] hospitalist Patient was signed out to Dr Moses, who has accepted patient for admission. Please note that this Emergency Department Report was dictated using [employer] operator technology software, occasionally this can lead to erroneous entry secondary to interpretation by the dictation equipment. EKG Diagnostic Results EP Interpretation: Yes Rate: normal Rhythm: NSR ST Segments: No acute changes ASA given to patient: No Rhythm Strip EP Interpretation: Yes Rate: 98 Rhythm: NSR, no PVCs, no ectopy Chest X-ray CXR: Ordered: Yes 1 view Indication: ams EP interpretation: Yes Interpretation: No consolidation, no effusion, no PTX, no acute cardiopulmonary disease, pacemaker noted left-sided chest, trach noted to be above the aby Impression: No acute disease Electronically signed by Jian Anderson MD Laboratory Tests Test 09/01/17 11:47 White Blood Count 11.4 K/UL (4.8-10.8) H Red Blood Count 3.30 M/UL (4.70-6.10) L Hemoglobin 9.5 G/DL (14.2-18.0) L Hematocrit 31.0 % (42.0-52.0) L Mean Corpuscular Volume 94 FL (80-99) Mean Corpuscular Hemoglobin 28.9 PG (27.0-31.0) Mean Corpuscular Hemoglobin Concent 30.8 G/DL (32.0-36.0) L Red Cell Distribution Width 14.9 % (11.6-14.8) H Platelet Count 330 K/UL (150-450) Mean Platelet Volume 5.3 FL (6.5-10.1) L Neutrophils (%) (Auto) 75.7 % (45.0-75.0) H Lymphocytes (%) (Auto) 13.2 % (20.0-45.0) L Monocytes (%) (Auto) 7.3 % (1.0-10.0) Eosinophils (%) (Auto) 2.8 % (0.0-3.0) Basophils (%) (Auto) 1.0 % (0.0-2.0) Prothrombin Time 10.7 SEC (9.30-11.50) Prothrombin Time INR 1.0 (0.9-1.1) PTT 25 SEC (23-33) Sodium Level 136 MMOL/L (136-145) Potassium Level 5.2 MMOL/L (3.5-5.1) H Chloride Level 100 MMOL/L (98-107) Carbon Dioxide Level 29 MMOL/L (21-32) Anion Gap 7 (5-15) Blood Urea Nitrogen 50 mg/dL (7-18) H Creatinine 0.8 MG/DL (0.55-1.30) Estimate Glomerular Filtration Rate > 60 mL/min (>60) Glucose Level 87 MG/DL (74-106) Lactic Acid Level 0.90 mmol/L (0.66-2.22) Calcium Level 10.0 MG/DL (8.5-10.1) Total Bilirubin 0.2 MG/DL (0.2-1.0) Aspartate Amino Transferase (AST) 53 U/L (15-37) H Alanine Aminotransferase (ALT) 100 U/L (12-78) H Alkaline Phosphatase 149 U/L (46-116) H Total Creatine Kinase 58 U/L (26-308) Creatine Kinase MB 3.0 NG/ML (0.0-3.6) Creatine Kinase MB Relative Index 5.1 Troponin I 0.000 ng/mL (0.000-0.056) Pro-B-Type Natriuretic Peptide 231 (0-125) H Total Protein 7.8 G/DL (6.4-8.2) Albumin 2.1 G/DL (3.4-5.0) L Globulin 5.7 g/dL Albumin/Globulin Ratio 0.4 (1.0-2.7) L Last Vital Signs Date Time Temp Pulse Resp B/P (MAP) Pulse Ox O2 Delivery O2 Flow Rate FiO2 09/01/17 10:45 102 20 Mechanical Ventilator 30 Disposition: ADMITTED INPATIENT Condition: Jian Javier M.D. Sep 01, 2017 11:02
--- NOTE | 2017-09-01 11:58 | Diagnostic Imaging Report ---
Indication: Shortness of breath Technique: One view of the chest Comparison: none Findings: Lungs and pleural spaces are clear. Heart size is normal. Tracheostomy remains. Left chest AICD is again demonstrated. Findings are unchanged Impression: No acute process. Findings as noted
[2017-09-01 12:33] LABS: EOSINOPHILS % (AUTO) 2.8 % (0.0-3.0); LYMPHOCYTES % (AUTO) 13.2 % (20.0-45.0); MEAN CORPUSCULAR HEMOGLOBIN 28.9 PG (27.0-31.0); MEAN CORPUSCULAR HGB CONC 30.8 G/DL (32.0-36.0); MEAN CORPUSCULAR VOLUME 94 FL (80-99); MEAN PLATELET VOLUME 5.3 FL (6.5-10.1); MONOCYTES % (AUTO) 7.3 % (1.0-10.0); NEUTROPHILS % (AUTO) 75.7 % (45.0-75.0); PLATELET COUNT 330 K/UL (150-450); RED CELL DISTRIBUTION WIDTH 14.9 % (11.6-14.8); WHITE BLOOD COUNT 11.4 K/UL (4.8-10.8)
[2017-09-01 12:38] LABS: PROTHROMBIN TIME 10.7 SEC (9.30-11.50)
[2017-09-01 12:56] LABS: ALANINE AMINOTRANSFERASE 100 U/L (12-78); ALBUMIN/GLOBULIN RATIO 0.4 (1.0-2.7); ANION GAP 7 (5-15); ASPARTATE AMINO TRANSFERASE 53 U/L (15-37); CARBON DIOXIDE 29 MMOL/L (21-32); CHLORIDE 100 MMOL/L (98-107); CREATININE 0.8 MG/DL (0.55-1.30); GLOMERULAR FILTRATION RATE > 60 mL/min (>60); POTASSIUM 5.2 MMOL/L (3.5-5.1); SODIUM 136 MMOL/L (136-145); TOTAL PROTEIN 7.8 G/DL (6.4-8.2)
[2017-09-01 13:21] LABS: APPEARANCE,URINE CLEAR; KETONES,URINE NEGATIVE (NEGATIVE); LEUKOCYTE ESTERASE ,URINE 1+ (NEGATIVE); NITRITE,URINE NEGATIVE (NEGATIVE); PH,URINE 7 (4.5-8.0); PROTEIN,URINE 1+ (NEGATIVE); UROBILINOGEN,URINE NORMAL MG/DL (0.0-1.0)
[2017-09-01 13:50] LABS: BACTERIA,URINE OCCASIONAL /HPF; RBC,URINE 0-2 /HPF (0 - 0); SQUAMOUS EPITHELIAL CELL,UR OCCASIONAL /LPF (NONE/OCC); WBC,URINE 0-2 /HPF (0 - 0)
[2017-09-01] MEDS ORDERED: ATIVAN0.5 MG GT (14:16)
[2017-09-01] MEDS ORDERED: NORCO 5-325 TA1 EAC1 ORAL (14:25)
[2017-09-01] MEDS ORDERED: CHLORHEXIDINE118 M1 TP (14:25)
[2017-09-01] MEDS ORDERED: TRAMADOL HCL50 MG GT (14:25)
[2017-09-01] MEDS ORDERED: MULTIVITAMINS1 EAC8 GT (14:25)
[2017-09-01] MEDS ORDERED: ACETAMINOPHEN120 MG GT (14:25)
[2017-09-01] MEDS ORDERED: UTI-STAT L3875 MG/31 GT (14:25)
[2017-09-01] MEDS ORDERED: MIRALAX17 G2 GT (14:25)
[2017-09-01] MEDS ORDERED: VITAMIN C500 M1 GT (14:26)
[2017-09-01 14:30] VITALS: BP 92/61
[2017-09-01] MEDS ORDERED: Miralax 17gm pkt GT PRN (14:30)
[2017-09-01] MEDS ORDERED: LORazepam Inj 2mg/ml 1ml IV PRN (14:30)
[2017-09-01] MEDS ORDERED: Albuterol/Ipratropium 3ml neb HHN PRN (14:30)
[2017-09-01] MEDS: Piperacillin/Tazobactam 3.375 GM in NS 110 ML IVPB SCH ×2 (16:29→23:30)
[2017-09-01 17:05] VITALS: BP 91/64
[2017-09-01] MEDS: Lactulose 20gm/30ml UDC GT SCH (18:00)
--- NOTE | 2017-09-01 18:01 | Consultation ---
History of Present Illness General Date patient seen: Sep 01, 2017 Time patient seen: 18:39 Chief Complaint: Pacemaker/Defibrillator Present Illness HPI 57 y/o M, [facility] resident with hx of chronic resp failure s/p trach and PEG, multiple decubiti pressure ulcers, Chronic anoxic encephalopathy SP cardiac arrest,Chronic sacrococcygeal osteomyelitis, h/o Coag neg staph RUE PICC associated bacteremia,h/o MDR Klebsiella and zosyn resistant Pseudomonas asymptomatic bacteriuria, chronic Hep C is admitted on 09/01 for tachycasrdia pacemaker/debribillator interrogation as concern for arrhythmia Of note, patient recently admitted here and discharged on 08/06 with a dx of HCAP /VAP and tx with IV Vancomycin, Zosyn and INH colistin. Sp cx eventually grew + 4 MDR A. baumani (S. Colistin, Polymxin B) and +4 MDR PsA (S. Cefepime, Gentamicn/Amkikacin) (sp resulted after patient was discharged). Patient afebrile. Mild leukocytosis to 11, but improved from cbc upon discharge. CXR clear. u/a neg. Started on IV Vanco and Zosyn. Allergies: Coded Allergies: No Known Allergies (Unverified , 03/07/17) Medication History Scheduled Amiodarone Hcl (Amiodarone Hcl), 200 MG GT DAILY, (Reported) Ascorbic Acid* (Vitamin C*), 500 MG GT DAILY, (Reported) Aspirin* (Aspir 81*), 81 MG GT DAILY, (Reported) Carvedilol (Coreg), 3.125 MG GT Q12HR Cran/Vitc/Mannose/Inulin/Brom (Uti-Stat Liquid), 30 ML GT BID, (Reported) Folic Acid* (Folic Acid*), 1 MG ORAL DAILY, (Reported) Furosemide* (Lasix*), 60 MG GT DAILY, (Reported) Heparin Sod (Porcine) (Heparin Sodium*), 5,000 UNITS SUBQ EVERY 12 HOURS, ( Reported) Lactulose (Lactulose*), 30 ML GT BID, (Reported) Levetiracetam (Keppra), 500 MG GT Q12HR Lisinopril* (Lisinopril*), 10 MG GT DAILY, (Reported) Lorazepam* (Ativan*), 0.5 MG GT PRN, (Reported) Multivitamin With Minerals (Multivitamins With Minerals*), 1 TAB GT DAILY, ( Reported) Omeprazole (Omeprazole), 40 MG GT DAILY, (Reported) Polyethylene Glycol 3350* (Miralax*), 17 GM GT PRN, (Reported) Potassium (Potassium), 40 MG GT BID, (Reported) Tramadol Hcl* (Ultram*), 50 MG GT DAILY, (Reported) Warfarin Sod (Coumadin*), 8 MG GT DAILY, (Reported) Zinc Sulfate (Zinc Sulfate*), 220 MG ORAL DAILY, (Reported) Scheduled PRN Acetaminophen* (Tylenol*), 325 MG GT Q4H PRN for Mild Pain/Temp > 100.5, ( Reported) Clonidine Hcl (Clonidine Hcl), 0.1 MG PO Q6HR PRN for For High Blood Pressure, ( Reported) Hydrocodone Bit/Acetaminophen 5-325* (Rodeo 5-325 Tablet*), 1 TAB GT Q4H PRN for For Pain, (Reported) Hydrocodone Bit/Acetaminophen 5-325* (Rodeo 5-325 Tablet*), 1 TAB ORAL Q4H PRN for For Pain, (Reported) Ondansetron* (Zofran*), 4 MG GT Q6H PRN for Nausea & Vomiting, (Reported) Polyethylene Glycol 3350* (Miralax*), 17 GM GT DAILY PRN for Constipation, ( Reported) Tramadol Hcl* (Ultram*), 50 MG GT Q6H PRN for For Pain, (Reported) Miscellaneous Medications Chlorhexidine Gluconate (Chlorhexidine Gluconate), 15 ML TP, (Reported) Lactose-Reduced Food/Fiber (Jevity 1.2 Simone Liquid), 1,300 ML GT, (Reported) Patient History Healthcare decision maker Resuscitation status Full Code Advanced Directive on File Patient History Narrative PMhx: as above SHX: unable to obtain Fhx: non contributory Review of Systems All Other Systems: negative except mentioned in HPI ROS Narrative unable to obtain Physical Exam Physical Exam Narrative General Appearance: Chronically ill-appearing thin middle aged male, trach, awake HEENT: atraumatic, PERRL, bilateral eye EOMI Neck: supple, other - trached, no signs of infetion Respiratory: - mechanical breath sounds b/l, chest symmetrical Cardiovascular no edema, normal capillary refill, tachycardia Gastrointestinal: non tender, soft, non-distended, no guarding, other - peg tube, no signs of infection Musculoskeletal: other - contracted lower ext Skin: normal inspection, normal color, no rash, warm/dry, well hydrated, normal turgor Last 24 Hour Vital Signs Date Time Temp Pulse Resp B/P (MAP) Pulse Ox O2 Delivery O2 Flow Rate FiO2 09/01/17 17:05 98.8 94 20 91/64 100 Mechanical Ventilator 30 09/01/17 16:30 72 18 35 09/01/17 16:00 30 09/01/17 14:50 99.0 101 17 92/61 100 Room Air 15.0 30 09/01/17 14:30 101 17 92/61 100 Room Air 09/01/17 14:30 75 21 30 09/01/17 12:31 30 09/01/17 12:30 89 18 30 09/01/17 11:01 99.0 103 22 95/58 100 Mechanical Ventilator 30 09/01/17 10:58 108 21 Mechanical Ventilator 15.0 30 09/01/17 10:58 108 21 30 09/01/17 10:45 99.0 102 20 95/58 95 Mechanical Ventilator 30 Intake and Output 09/01/17 09/02/17 19:00 07:00 Intake Total 0 ml Balance 0 ml Intake Oral 0 ml Laboratory Tests Test 09/01/17 11:47 09/01/17 13:10 White Blood Count 11.4 K/UL (4.8-10.8) H Red Blood Count 3.30 M/UL (4.70-6.10) L Hemoglobin 9.5 G/DL (14.2-18.0) L Hematocrit 31.0 % (42.0-52.0) L Mean Corpuscular Volume 94 FL (80-99) Mean Corpuscular Hemoglobin 28.9 PG (27.0-31.0) Mean Corpuscular Hemoglobin Concent 30.8 G/DL (32.0-36.0) L Red Cell Distribution Width 14.9 % (11.6-14.8) H Platelet Count 330 K/UL (150-450) Mean Platelet Volume 5.3 FL (6.5-10.1) L Neutrophils (%) (Auto) 75.7 % (45.0-75.0) H Lymphocytes (%) (Auto) 13.2 % (20.0-45.0) L Monocytes (%) (Auto) 7.3 % (1.0-10.0) Eosinophils (%) (Auto) 2.8 % (0.0-3.0) Basophils (%) (Auto) 1.0 % (0.0-2.0) Prothrombin Time 10.7 SEC (9.30-11.50) Prothromb Time International Ratio 1.0 (0.9-1.1) Activated Partial Thromboplast Time 25 SEC (23-33) Sodium Level 136 MMOL/L (136-145) Potassium Level 5.2 MMOL/L (3.5-5.1) H Chloride Level 100 MMOL/L (98-107) Carbon Dioxide Level 29 MMOL/L (21-32) Anion Gap 7 (5-15) Blood Urea Nitrogen 50 mg/dL (7-18) H Creatinine 0.8 MG/DL (0.55-1.30) Estimat Glomerular Filtration Rate > 60 mL/min (>60) Glucose Level 87 MG/DL (74-106) Lactic Acid Level 0.90 mmol/L (0.66-2.22) Calcium Level 10.0 MG/DL (8.5-10.1) Total Bilirubin 0.2 MG/DL (0.2-1.0) Aspartate Amino Transf (AST/SGOT) 53 U/L (15-37) H Alanine Aminotransferase (ALT/SGPT) 100 U/L (12-78) H Alkaline Phosphatase 149 U/L (46-116) H Total Creatine Kinase 58 U/L (26-308) Creatine Kinase MB 3.0 NG/ML (0.0-3.6) Creatine Kinase MB Relative Index 5.1 Troponin I 0.000 ng/mL (0.000-0.056) Pro-B-Type Natriuretic Peptide 231 (0-125) H Total Protein 7.8 G/DL (6.4-8.2) Albumin 2.1 G/DL (3.4-5.0) L Globulin 5.7 g/dL Albumin/Globulin Ratio 0.4 (1.0-2.7) L Urine Color Yellow Urine Appearance Clear Urine pH 7 (4.5-8.0) Urine Specific [place] 1.010 (1.005-1.035) Urine Protein 1+ (NEGATIVE) H Urine Glucose (UA) Negative (NEGATIVE) Urine Ketones Negative (NEGATIVE) Urine Occult Blood Negative (NEGATIVE) Urine Nitrite Negative (NEGATIVE) Urine Bilirubin Negative (NEGATIVE) Urine Urobilinogen Normal MG/DL (0.0-1.0) Urine Leukocyte Esterase 1+ (NEGATIVE) H Urine RBC 0-2 /HPF (0 - 0) H Urine WBC 0-2 /HPF (0 - 0) Urine Squamous Epithelial Cells Occasional /LPF Urine Bacteria Occasional /HPF (NONE) reviewed Height (Feet): 5 Height (Inches): 7.00 Weight (Pounds): 158 Medications Current Medications Medications (Trade) Dose Ordered Sig/Tameka Route PRN Reason Start Time Stop Time Status Last Admin Dose Admin Acetaminophen (Tylenol) 650 mg Q4H PRN ORAL FEVER 09/01/17 14:30 10/01/17 14:29 Albuterol/ Ipratropium (DuoNeb 0.5-3(2.5)mg/3ml) 3 ml Q4H PRN HHN Shortness of Breath 09/01/17 14:30 09/06/17 14:29 Amiodarone HCl (Cordarone) 200 mg DAILY GT 09/02/17 09:00 10/02/17 08:59 Aspirin (ASA) 81 mg DAILY GT 09/02/17 09:00 10/02/17 08:59 Clonidine HCl (Catapres) 0.1 mg Q6H PRN GT SBP > 160 09/01/17 14:30 10/01/17 14:29 Dextrose (Dextrose 50%) STAT PRN IV Hypoglycemia 09/01/17 14:30 10/01/17 14:29 Heparin Sodium (Porcine) (Heparin 5000 units/ml) 5,000 units EVERY 12 HOURS SUBQ 09/01/17 21:00 10/01/17 20:59 Lactulose (Cephulac) 20 gm BID GT 09/01/17 18:00 10/01/17 17:59 Levetiracetam (Keppra) 500 mg Q12HR GT 09/01/17 21:00 10/01/17 20:59 Lorazepam (Ativan 2mg/ml 1ml) 2 mg Q2H PRN IV For Anxiety 09/01/17 14:30 09/08/17 14:29 Morphine Sulfate (Morphine Sulfate) 4 mg Q4H PRN IVP Severe Pain (Pain Scale 7-10) 09/01/17 14:30 09/08/17 14:29 Ondansetron HCl (Zofran) 4 mg Q6H PRN IVP Nausea & Vomiting 09/01/17 14:30 10/01/17 14:29 Pantoprazole (Protonix) 40 mg DAILY IV 09/02/17 09:00 10/02/17 08:59 Piperacillin Sod/ Tazobactam Sod 3.375 gm/Sodium Chloride 110 ml @ 27.5 mls/hr Q8H IVPB 09/01/17 16:00 09/08/17 15:59 09/01/17 16:29 Polyethylene Glycol (Miralax) 17 gm DAILYPRN PRN GT Constipation 09/01/17 14:30 10/01/17 14:29 Vancomycin/Sodium Chloride 250 ml @ 166.667 mls/hr DAILY@2000 IVPB 09/01/17 20:00 09/06/17 19:59 Assessment/Plan Assessment/Plan Abx: IV Vanco/Zosyn 09/01- Assesment: //Tachycardia>Arrhythmia- r/o infectious process- so far none identified; r/o bacteremia -afebrile -Bcx pending -CXR no acute disease -u/a neg //Leukocytosis, mild- resolved // Recent HCAP / VAP - SCx 08/13 : +4 MDR A. baumani (S. Colistin, Polymxin B) and +4 MDR PsA (S. Cefepime, Gentamicn/Amkikacin); s/p Rx Vanco, Zosyn, INH colistin - CXR 08/01: Questionable right basilar patchy infiltrate - h/o MDR-ACB, KPC, Providencia, XDR Pseudomonas // Chronic sacrococcygeal osteomyelitis - previous evaluation by surgery deemed not a surgical candidate - CT with contrast--some sacral/coccygeal erosion, but no abscess. no profound progression. - h/o MDR ACB, C albicans, and KPC (sensitive only to colistin) // Multiple decubiti POA, not grossly infected // h/o Coag neg staph RUE PICC associated bacteremia // h/o MDR Klebsiella and zosyn resistant Pseudomonas asymptomatic bacteriuria // HCV Ab+, no transaminitis currently // Negative HIV Chronic VDRF SP trach, PEG Chronic anoxic encephalopathy SP cardiac arrest Elevated ESR - worse Reactive thrombocytosis Cachexia with elevated CEA, normal PSA Acute on chronic anemia Sinus tachycardia Chronic systolic CHF, EF 30% SP AICD Paroxysmal Afib Retirement resident MDRO colonized NKDA Full code Plan: -Continue empiric IV vancomycin and Zosyn for the next 24-48hrs pending Bcx -f/u cx -Monitor CBC/BMP, temperatures -peg/trach care -aspiration precautions. Discussed with EMIR. Radha Saini M.D. Sep 01, 2017 18:01
[2017-09-01] MEDS: Morphine Sulfate 4mg/ml Inj IVP PRN (18:41)
--- NOTE | 2017-09-01 18:55 | Cardiology Progress Note ---
Assessment/Plan Assessment/Plan arrythmi noted on icd interrogation but may be too old atp successfull for reproted vt vf will have echo and electolytes to beign with [id number] Objective Last 24 Hour Vital Signs Date Time Temp Pulse Resp B/P (MAP) Pulse Ox O2 Delivery O2 Flow Rate FiO2 09/01/17 17:05 98.8 94 20 91/64 100 Mechanical Ventilator 30 09/01/17 16:30 72 18 35 09/01/17 16:00 30 09/01/17 14:50 99.0 101 17 92/61 100 Room Air 15.0 30 09/01/17 14:30 101 17 92/61 100 Room Air 09/01/17 14:30 75 21 30 09/01/17 12:31 30 09/01/17 12:30 89 18 30 09/01/17 11:01 99.0 103 22 95/58 100 Mechanical Ventilator 30 09/01/17 10:58 108 21 Mechanical Ventilator 15.0 30 09/01/17 10:58 108 21 30 09/01/17 10:45 99.0 102 20 95/58 95 Mechanical Ventilator 30 Intake and Output 09/01/17 09/02/17 19:00 07:00 Intake Total 30 ml Balance 30 ml Intake Oral 0 ml Tube Feeding 30 ml # Voids 1 Laboratory Tests Test 09/01/17 11:47 09/01/17 13:10 White Blood Count 11.4 K/UL (4.8-10.8) H Red Blood Count 3.30 M/UL (4.70-6.10) L Hemoglobin 9.5 G/DL (14.2-18.0) L Hematocrit 31.0 % (42.0-52.0) L Mean Corpuscular Volume 94 FL (80-99) Mean Corpuscular Hemoglobin 28.9 PG (27.0-31.0) Mean Corpuscular Hemoglobin Concent 30.8 G/DL (32.0-36.0) L Red Cell Distribution Width 14.9 % (11.6-14.8) H Platelet Count 330 K/UL (150-450) Mean Platelet Volume 5.3 FL (6.5-10.1) L Neutrophils (%) (Auto) 75.7 % (45.0-75.0) H Lymphocytes (%) (Auto) 13.2 % (20.0-45.0) L Monocytes (%) (Auto) 7.3 % (1.0-10.0) Eosinophils (%) (Auto) 2.8 % (0.0-3.0) Basophils (%) (Auto) 1.0 % (0.0-2.0) Prothrombin Time 10.7 SEC (9.30-11.50) Prothromb Time International Ratio 1.0 (0.9-1.1) Activated Partial Thromboplast Time 25 SEC (23-33) Sodium Level 136 MMOL/L (136-145) Potassium Level 5.2 MMOL/L (3.5-5.1) H Chloride Level 100 MMOL/L (98-107) Carbon Dioxide Level 29 MMOL/L (21-32) Anion Gap 7 (5-15) Blood Urea Nitrogen 50 mg/dL (7-18) H Creatinine 0.8 MG/DL (0.55-1.30) Estimat Glomerular Filtration Rate > 60 mL/min (>60) Glucose Level 87 MG/DL (74-106) Lactic Acid Level 0.90 mmol/L (0.66-2.22) Calcium Level 10.0 MG/DL (8.5-10.1) Total Bilirubin 0.2 MG/DL (0.2-1.0) Aspartate Amino Transf (AST/SGOT) 53 U/L (15-37) H Alanine Aminotransferase (ALT/SGPT) 100 U/L (12-78) H Alkaline Phosphatase 149 U/L (46-116) H Total Creatine Kinase 58 U/L (26-308) Creatine Kinase MB 3.0 NG/ML (0.0-3.6) Creatine Kinase MB Relative Index 5.1 Troponin I 0.000 ng/mL (0.000-0.056) Pro-B-Type Natriuretic Peptide 231 (0-125) H Total Protein 7.8 G/DL (6.4-8.2) Albumin 2.1 G/DL (3.4-5.0) L Globulin 5.7 g/dL Albumin/Globulin Ratio 0.4 (1.0-2.7) L Urine Color Yellow Urine Appearance Clear Urine pH 7 (4.5-8.0) Urine Specific [place] 1.010 (1.005-1.035) Urine Protein 1+ (NEGATIVE) H Urine Glucose (UA) Negative (NEGATIVE) Urine Ketones Negative (NEGATIVE) Urine Occult Blood Negative (NEGATIVE) Urine Nitrite Negative (NEGATIVE) Urine Bilirubin Negative (NEGATIVE) Urine Urobilinogen Normal MG/DL (0.0-1.0) Urine Leukocyte Esterase 1+ (NEGATIVE) H Urine RBC 0-2 /HPF (0 - 0) H Urine WBC 0-2 /HPF (0 - 0) Urine Squamous Epithelial Cells Occasional /LPF Urine Bacteria Occasional /HPF (NONE) CELI FALCON Sep 01, 2017 18:55
[2017-09-01 20:00] VITALS: BP 122/64
[2017-09-01] MEDS: levETIRAcetam 500mg/5ml Liquid GT SCH (21:09)
[2017-09-01] MEDS: Vancomycin 750mg/NS 250ml 250 ML IVPB SCH (21:09)
[2017-09-01] MEDS: Heparin 5000 units/ml inj SUBQ SCH (21:11)
--- NOTE | 2017-09-01 21:14 | History and Physical ---
History of Present Illness General Date patient seen: Sep 01, 2017 Reason for Hospitalization: Pacemaker/Defibrillator Present Illness HPI 57-year-old male with a history of resp failure with trach, PEG, pressure ulcers , coming from [place], sent to hospital for eval of PPM and defibrillator. He is awake and comfortable. there is a concern in residential that pts ICD not functioning properly. Allergies: Coded Allergies: No Known Allergies (Unverified , 03/07/17) Medication History Scheduled Amiodarone Hcl (Amiodarone Hcl), 200 MG GT DAILY, (Reported) Ascorbic Acid* (Vitamin C*), 500 MG GT DAILY, (Reported) Aspirin* (Aspir 81*), 81 MG GT DAILY, (Reported) Carvedilol (Coreg), 3.125 MG GT Q12HR Cran/Vitc/Mannose/Inulin/Brom (Uti-Stat Liquid), 30 ML GT BID, (Reported) Folic Acid* (Folic Acid*), 1 MG ORAL DAILY, (Reported) Furosemide* (Lasix*), 60 MG GT DAILY, (Reported) Heparin Sod (Porcine) (Heparin Sodium*), 5,000 UNITS SUBQ EVERY 12 HOURS, ( Reported) Lactulose (Lactulose*), 30 ML GT BID, (Reported) Levetiracetam (Keppra), 500 MG GT Q12HR Lisinopril* (Lisinopril*), 10 MG GT DAILY, (Reported) Lorazepam* (Ativan*), 0.5 MG GT PRN, (Reported) Multivitamin With Minerals (Multivitamins With Minerals*), 1 TAB GT DAILY, ( Reported) Omeprazole (Omeprazole), 40 MG GT DAILY, (Reported) Polyethylene Glycol 3350* (Miralax*), 17 GM GT PRN, (Reported) Potassium (Potassium), 40 MG GT BID, (Reported) Tramadol Hcl* (Ultram*), 50 MG GT DAILY, (Reported) Warfarin Sod (Coumadin*), 8 MG GT DAILY, (Reported) Zinc Sulfate (Zinc Sulfate*), 220 MG ORAL DAILY, (Reported) Scheduled PRN Acetaminophen* (Tylenol*), 325 MG GT Q4H PRN for Mild Pain/Temp > 100.5, ( Reported) Clonidine Hcl (Clonidine Hcl), 0.1 MG PO Q6HR PRN for For High Blood Pressure, ( Reported) Hydrocodone Bit/Acetaminophen 5-325* ([place] 5-325 Tablet*), 1 TAB GT Q4H PRN for For Pain, (Reported) Hydrocodone Bit/Acetaminophen 5-325* ([place] 5-325 Tablet*), 1 TAB ORAL Q4H PRN for For Pain, (Reported) Ondansetron* (Zofran*), 4 MG GT Q6H PRN for Nausea & Vomiting, (Reported) Polyethylene Glycol 3350* (Miralax*), 17 GM GT DAILY PRN for Constipation, ( Reported) Tramadol Hcl* (Ultram*), 50 MG GT Q6H PRN for For Pain, (Reported) Miscellaneous Medications Chlorhexidine Gluconate (Chlorhexidine Gluconate), 15 ML TP, (Reported) Lactose-Reduced Food/Fiber ([place]ev[place] 1.2 Simone Liquid), 1,300 ML GT, (Reported) Patient History Healthcare decision maker Resuscitation status Full Code Advanced Directive on File Past Medical/Surgical History Past Medical/Surgical History: (1) Tracheostomy dependence (2) EF of 30 (3) Feeding by G-tube (4) Atrial fibrillation Review of Systems All Other Systems: negative except mentioned in HPI Physical Exam General Appearance: cachetic HEENT: normocephalic, atraumatic Neck: non-tender, normal alignment Breasts: no masses Cardiovascular/Chest: normal peripheral pulses, normal rate Abdomen: normal bowel sounds, non tender Genitourinary/Rectal: normal genital exam Extremities: normal range of motion Skin Exam: normal pigmentation Neurologic: zipper ironer 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 normal Last 24 Hour Vital Signs Date Time Temp Pulse Resp B/P (MAP) Pulse Ox O2 Delivery O2 Flow Rate FiO2 09/01/17 20:00 99.0 98 16 122/64 100 Mechanical Ventilator 15.0 35 09/01/17 19:20 105 21 35 09/01/17 17:05 98.8 94 20 91/64 100 Mechanical Ventilator 30 09/01/17 16:30 72 18 35 09/01/17 16:00 30 09/01/17 16:00 104 09/01/17 14:50 99.0 101 17 92/61 100 Room Air 15.0 30 09/01/17 14:30 101 17 92/61 100 Room Air 09/01/17 14:30 75 21 30 09/01/17 12:31 30 09/01/17 12:30 89 18 30 09/01/17 11:01 99.0 103 22 95/58 100 Mechanical Ventilator 30 09/01/17 10:58 108 21 Mechanical Ventilator 15.0 30 09/01/17 10:58 108 21 30 09/01/17 10:45 99.0 102 20 95/58 95 Mechanical Ventilator 30 Intake and Output 09/01/17 09/02/17 19:00 07:00 Intake Total 30 ml Balance 30 ml Intake Oral 0 ml Tube Feeding 30 ml # Voids 1 Laboratory Tests Test 09/01/17 11:47 09/01/17 13:10 White Blood Count 11.4 K/UL (4.8-10.8) H Red Blood Count 3.30 M/UL (4.70-6.10) L Hemoglobin 9.5 G/DL (14.2-18.0) L Hematocrit 31.0 % (42.0-52.0) L Mean Corpuscular Volume 94 FL (80-99) Mean Corpuscular Hemoglobin 28.9 PG (27.0-31.0) Mean Corpuscular Hemoglobin Concent 30.8 G/DL (32.0-36.0) L Red Cell Distribution Width 14.9 % (11.6-14.8) H Platelet Count 330 K/UL (150-450) Mean Platelet Volume 5.3 FL (6.5-10.1) L Neutrophils (%) (Auto) 75.7 % (45.0-75.0) H Lymphocytes (%) (Auto) 13.2 % (20.0-45.0) L Monocytes (%) (Auto) 7.3 % (1.0-10.0) Eosinophils (%) (Auto) 2.8 % (0.0-3.0) Basophils (%) (Auto) 1.0 % (0.0-2.0) Prothrombin Time 10.7 SEC (9.30-11.50) Prothromb Time International Ratio 1.0 (0.9-1.1) Activated Partial Thromboplast Time 25 SEC (23-33) Sodium Level 136 MMOL/L (136-145) Potassium Level 5.2 MMOL/L (3.5-5.1) H Chloride Level 100 MMOL/L (98-107) Carbon Dioxide Level 29 MMOL/L (21-32) Anion Gap 7 (5-15) Blood Urea Nitrogen 50 mg/dL (7-18) H Creatinine 0.8 MG/DL (0.55-1.30) Estimat Glomerular Filtration Rate > 60 mL/min (>60) Glucose Level 87 MG/DL (74-106) Lactic Acid Level 0.90 mmol/L (0.66-2.22) Calcium Level 10.0 MG/DL (8.5-10.1) Total Bilirubin 0.2 MG/DL (0.2-1.0) Aspartate Amino Transf (AST/SGOT) 53 U/L (15-37) H Alanine Aminotransferase (ALT/SGPT) 100 U/L (12-78) H Alkaline Phosphatase 149 U/L (46-116) H Total Creatine Kinase 58 U/L (26-308) Creatine Kinase MB 3.0 NG/ML (0.0-3.6) Creatine Kinase MB Relative Index 5.1 Troponin I 0.000 ng/mL (0.000-0.056) Pro-B-Type Natriuretic Peptide 231 (0-125) H Total Protein 7.8 G/DL (6.4-8.2) Albumin 2.1 G/DL (3.4-5.0) L Globulin 5.7 g/dL Albumin/Globulin Ratio 0.4 (1.0-2.7) L Urine Color Yellow Urine Appearance Clear Urine pH 7 (4.5-8.0) Urine Specific [place] 1.010 (1.005-1.035) Urine Protein 1+ (NEGATIVE) H Urine Glucose (UA) Negative (NEGATIVE) Urine Ketones Negative (NEGATIVE) Urine Occult Blood Negative (NEGATIVE) Urine Nitrite Negative (NEGATIVE) Urine Bilirubin Negative (NEGATIVE) Urine Urobilinogen Normal MG/DL (0.0-1.0) Urine Leukocyte Esterase 1+ (NEGATIVE) H Urine RBC 0-2 /HPF (0 - 0) H Urine WBC 0-2 /HPF (0 - 0) Urine Squamous Epithelial Cells Occasional /LPF Urine Bacteria Occasional /HPF (NONE) Height (Feet): 5 Height (Inches): 7.00 Weight (Pounds): 158 Medications Current Medications Medications (Trade) Dose Ordered Sig/Tameka Route PRN Reason Start Time Stop Time Status Last Admin Dose Admin Acetaminophen (Tylenol) 650 mg Q4H PRN ORAL FEVER 09/01/17 14:30 10/01/17 14:29 Albuterol/ Ipratropium (DuoNeb 0.5-3(2.5)mg/3ml) 3 ml Q4H PRN HHN Shortness of Breath 09/01/17 14:30 09/06/17 14:29 Amiodarone HCl (Cordarone) 200 mg DAILY GT 09/02/17 09:00 10/02/17 08:59 Aspirin (ASA) 81 mg DAILY GT 09/02/17 09:00 10/02/17 08:59 Clonidine HCl (Catapres) 0.1 mg Q6H PRN GT SBP > 160 09/01/17 14:30 10/01/17 14:29 Dextrose (Dextrose 50%) STAT PRN IV Hypoglycemia 09/01/17 14:30 10/01/17 14:29 Heparin Sodium (Porcine) (Heparin 5000 units/ml) 5,000 units EVERY 12 HOURS SUBQ 09/01/17 21:00 10/01/17 20:59 09/01/17 21:11 Lactulose (Cephulac) 20 gm BID GT 09/01/17 18:00 10/01/17 17:59 09/01/17 18:00 Levetiracetam (Keppra) 500 mg Q12HR GT 09/01/17 21:00 10/01/17 20:59 09/01/17 21:09 Lorazepam (Ativan 2mg/ml 1ml) 2 mg Q2H PRN IV For Anxiety 09/01/17 14:30 09/08/17 14:29 Morphine Sulfate (Morphine Sulfate) 4 mg Q4H PRN IVP Severe Pain (Pain Scale 7-10) 09/01/17 14:30 09/08/17 14:29 09/01/17 18:41 Ondansetron HCl (Zofran) 4 mg Q6H PRN IVP Nausea & Vomiting 09/01/17 14:30 10/01/17 14:29 Pantoprazole (Protonix) 40 mg DAILY IV 09/02/17 09:00 10/02/17 08:59 Piperacillin Sod/ Tazobactam Sod 3.375 gm/Sodium Chloride 110 ml @ 27.5 mls/hr Q8H IVPB 09/01/17 16:00 09/08/17 15:59 09/01/17 16:29 Polyethylene Glycol (Miralax) 17 gm DAILYPRN PRN GT Constipation 09/01/17 14:30 10/01/17 14:29 Vancomycin/Sodium Chloride 250 ml @ 166.667 mls/hr DAILY@2000 IVPB 09/01/17 20:00 09/06/17 19:59 09/01/17 21:09 Assessment/Plan Problem List: (1) Chronic respiratory acidosis ICD Codes: E87.2 - Acidosis SNOMED: 8254972 (2) Leukocytosis ICD Codes: D72.829 - Elevated white blood cell count, unspecified SNOMED: 032693679, 645104479 (3) Atrial fibrillation ICD Codes: I48.91 - Unspecified atrial fibrillation SNOMED: 38549121 (4) Anemia ICD Codes: D64.9 - Anemia, unspecified SNOMED: 817618595 (5) EF of 30 (6) Tracheostomy dependence ICD Codes: Z93.0 - Tracheostomy status SNOMED: 707246276, 401825398 Respiratory: monitor respiratory rate, adjust FIO2 Cardiac: continue to monitor HR/BP, other - cardiology to see Renal: F/U I&O Infectious Disease: check cultures Gastrointestinal: continue feedings/current rate Endocrine: monitor blood sugar, check TSH, continue sliding scale insulin Hematologic: transfuse if hgb<8.5 Neurologic: PRN Ativan, PRN Morphine, keep patient comfortable Affect: PRN ativan Notes Reviewed: case fitter, cardio Discussed with: nurses, consultants, case management coordinator ODETTE SMILEY Sep 01, 2017 21:14
[2017-09-02] VITALS: BP 101/61
[2017-09-02 04:00] VITALS: BP 99/57
[2017-09-02 06:00] LABS: BASOPHILS % (AUTO) 0.6 % (0.0-2.0); EOSINOPHILS % (AUTO) 4.9 % (0.0-3.0); LYMPHOCYTES % (AUTO) 18.8 % (20.0-45.0); MEAN CORPUSCULAR HEMOGLOBIN 30.6 PG (27.0-31.0); MEAN CORPUSCULAR HGB CONC 32.8 G/DL (32.0-36.0); MEAN CORPUSCULAR VOLUME 93 FL (80-99); MEAN PLATELET VOLUME 5.4 FL (6.5-10.1); NEUTROPHILS % (AUTO) 65.7 % (45.0-75.0); PLATELET COUNT 409 K/UL (150-450); RED BLOOD COUNT 2.88 M/UL (4.70-6.10); RED CELL DISTRIBUTION WIDTH 14.7 % (11.6-14.8); WHITE BLOOD COUNT 8.3 K/UL (4.8-10.8)
[2017-09-02 06:34] LABS: ANION GAP 6 mmol/L (5-15); CALCIUM 10.1 MG/DL (8.5-10.1); CARBON DIOXIDE 28 MMOL/L (21-32); CHLORIDE 102 MMOL/L (98-107); CREATININE 0.8 MG/DL (0.55-1.30); GLOMERULAR FILTRATION RATE > 60 mL/min (>60); PHOSPHORUS 3.7 MG/DL (2.5-4.9); POTASSIUM 4.4 MMOL/L (3.5-5.1); SODIUM 136 MMOL/L (136-145)
[2017-09-02 08:00] VITALS: BP 111/60
[2017-09-02] MEDS: Piperacillin/Tazobactam 3.375 GM in NS 110 ML IVPB SCH ×2 (08:27→16:24)
[2017-09-02] MEDS: Pantoprazole Inj IV SCH (08:30)
[2017-09-02] MEDS: Aspirin Baby 81mg GT SCH (08:30)
[2017-09-02] MEDS: levETIRAcetam 500mg/5ml Liquid GT SCH ×2 (08:30→19:54)
[2017-09-02] MEDS: Amiodarone 200mg tab GT SCH (08:31)
[2017-09-02] MEDS: Heparin 5000 units/ml inj SUBQ SCH ×2 (08:42→19:56)
[2017-09-02] MEDS ORDERED: Aspirin EC 81mg tab ORAL SCH (09:00)
[2017-09-02] MEDS: Lactulose 20gm/30ml UDC GT SCH ×2 (09:00→18:00)
[2017-09-02] MEDS: Morphine Sulfate 4mg/ml Inj IVP PRN ×2 (09:49→23:28)
--- NOTE | 2017-09-02 10:24 | Infectious Diseases Prog Note ---
Assessment/Plan Assessment/Plan Assessment: //Tachycardia>Arrhythmia- r/o infectious process- so far none identified; r/o bacteremia -afebrile -Bcx pending -CXR no acute disease -u/a neg //Leukocytosis, mild- resolved // Recent HCAP / VAP SP - SCx 08/13 : +4 MDR A. baumani (S. Colistin, Polymxin B ) and +4 MDR PsA (S. Cefepime, Gentamicn/Amkikacin); s/p Rx Vanco, Zosyn, INH colistin r/o recurrence - CXR 09/01: Lungs and pleural spaces are clear - h/o MDR-ACB, KPC, Providencia, XDR Pseudomonas // Chronic sacrococcygeal osteomyelitis - previous evaluation by surgery deemed not a surgical candidate - CT with contrast--some sacral/coccygeal erosion, but no abscess. no profound progression. - h/o MDR ACB, C albicans, and KPC (sensitive only to colistin) // Multiple decubiti POA, not grossly infected // h/o Coag neg staph RUE PICC associated bacteremia // h/o MDR Klebsiella and zosyn resistant Pseudomonas asymptomatic bacteriuria // HCV Ab+, no transaminitis currently // Negative HIV Chronic VDRF SP trach, PEG Chronic anoxic encephalopathy SP cardiac arrest Elevated ESR - worse Reactive thrombocytosis Cachexia with elevated CEA, normal PSA Acute on chronic anemia Sinus tachycardia Chronic systolic CHF, EF 30% SP AICD Paroxysmal Afib Alf resident MDRO colonized NKDA Full code Plan: -Continue empiric IV vancomycin and Zosyn d# 2 pending cultures -f/u cx -Monitor CBC/BMP, temperatures -monitor CXR -peg/trach care -aspiration precautions. Subjective Allergies: Coded Allergies: No Known Allergies (Unverified , 03/07/17) Subjective remains afebrile appears comfortable Objective Vital Signs Last 24 Hour Vital Signs Date Time Temp Pulse Resp B/P (MAP) Pulse Ox O2 Delivery O2 Flow Rate FiO2 09/02/17 10:00 100 09/02/17 09:29 107 18 35 09/02/17 08:00 30 09/02/17 08:00 106 09/02/17 08:00 99.9 101 19 111/60 100 Mechanical Ventilator 35 09/02/17 07:09 105 20 35 09/02/17 05:34 105 21 35 09/02/17 04:00 99.0 102 20 99/57 100 Mechanical Ventilator 15.0 35 09/02/17 04:00 30 09/02/17 04:00 103 09/02/17 02:32 103 21 35 09/02/17 02:28 104 22 35 09/02/17 00:57 101 19 35 09/02/17 00:00 104 09/02/17 00:00 99.0 106 20 101/61 100 Mechanical Ventilator 15.0 35 09/01/17 22:49 106 21 35 09/01/17 21:19 101 20 35 09/01/17 20:00 30 09/01/17 20:00 102 09/01/17 20:00 99.0 98 16 122/64 100 Mechanical Ventilator 15.0 35 09/01/17 19:20 105 21 35 09/01/17 17:05 98.8 94 20 91/64 100 Mechanical Ventilator 30 09/01/17 16:30 72 18 35 09/01/17 16:00 30 09/01/17 16:00 104 09/01/17 14:50 99.0 101 17 92/61 100 Room Air 15.0 30 09/01/17 14:30 101 17 92/61 100 Room Air 09/01/17 14:30 75 21 30 09/01/17 12:31 30 09/01/17 12:30 89 18 30 09/01/17 11:01 99.0 103 22 95/58 100 Mechanical Ventilator 30 09/01/17 10:58 108 21 Mechanical Ventilator 15.0 30 09/01/17 10:58 108 21 30 09/01/17 10:45 99.0 102 20 95/58 95 Mechanical Ventilator 30 Height (Feet): 5 Height (Inches): 7.00 Weight (Pounds): 158 General Appearance: no acute distress HEENT: status post trach Respiratory/Chest: no respiratory distress Cardiovascular: normal rate, regular rhythm Abdomen: normal bowel sounds, soft, non tender, non distended Laboratory Tests Test 09/01/17 11:47 09/01/17 13:10 09/02/17 03:50 White Blood Count 11.4 K/UL (4.8-10.8) H 8.3 K/UL (4.8-10.8) Red Blood Count 3.30 M/UL (4.70-6.10) L 2.88 M/UL (4.70-6.10) L Hemoglobin 9.5 G/DL (14.2-18.0) L 8.8 G/DL (14.2-18.0) L Hematocrit 31.0 % (42.0-52.0) L 26.9 % (42.0-52.0) L Mean Corpuscular Volume 94 FL (80-99) 93 FL (80-99) Mean Corpuscular Hemoglobin 28.9 PG (27.0-31.0) 30.6 PG (27.0-31.0) Mean Corpuscular Hemoglobin Concent 30.8 G/DL (32.0-36.0) L 32.8 G/DL (32.0-36.0) Red Cell Distribution Width 14.9 % (11.6-14.8) H 14.7 % (11.6-14.8) Platelet Count 330 K/UL (150-450) 409 K/UL (150-450) Mean Platelet Volume 5.3 FL (6.5-10.1) L 5.4 FL (6.5-10.1) L Neutrophils (%) (Auto) 75.7 % (45.0-75.0) H 65.7 % (45.0-75.0) Lymphocytes (%) (Auto) 13.2 % (20.0-45.0) L 18.8 % (20.0-45.0) L Monocytes (%) (Auto) 7.3 % (1.0-10.0) 10.0 % (1.0-10.0) Eosinophils (%) (Auto) 2.8 % (0.0-3.0) 4.9 % (0.0-3.0) H Basophils (%) (Auto) 1.0 % (0.0-2.0) 0.6 % (0.0-2.0) Prothrombin Time 10.7 SEC (9.30-11.50) Prothromb Time International Ratio 1.0 (0.9-1.1) Activated Partial Thromboplast Time 25 SEC (23-33) Sodium Level 136 MMOL/L (136-145) 136 MMOL/L (136-145) Potassium Level 5.2 MMOL/L (3.5-5.1) H 4.4 MMOL/L (3.5-5.1) Chloride Level 100 MMOL/L (98-107) 102 MMOL/L (98-107) Carbon Dioxide Level 29 MMOL/L (21-32) 28 MMOL/L (21-32) Anion Gap 7 (5-15) 6 mmol/L (5-15) Blood Urea Nitrogen 50 mg/dL (7-18) H 37 mg/dL (7-18) H Creatinine 0.8 MG/DL (0.55-1.30) 0.8 MG/DL (0.55-1.30) Estimat Glomerular Filtration Rate > 60 mL/min (>60) > 60 mL/min (>60) Glucose Level 87 MG/DL (74-106) 99 MG/DL (74-106) Lactic Acid Level 0.90 mmol/L (0.66-2.22) Calcium Level 10.0 MG/DL (8.5-10.1) 10.1 MG/DL (8.5-10.1) Total Bilirubin 0.2 MG/DL (0.2-1.0) Aspartate Amino Transf (AST/SGOT) 53 U/L (15-37) H Alanine Aminotransferase (ALT/SGPT) 100 U/L (12-78) H Alkaline Phosphatase 149 U/L (46-116) H Total Creatine Kinase 58 U/L (26-308) Creatine Kinase MB 3.0 NG/ML (0.0-3.6) Creatine Kinase MB Relative Index 5.1 Troponin I 0.000 ng/mL (0.000-0.056) 0.000 ng/mL (0.000-0.056) Pro-B-Type Natriuretic Peptide 231 (0-125) H Total Protein 7.8 G/DL (6.4-8.2) Albumin 2.1 G/DL (3.4-5.0) L 2.0 G/DL (3.4-5.0) L Globulin 5.7 g/dL Albumin/Globulin Ratio 0.4 (1.0-2.7) L Urine Color Yellow Urine Appearance Clear Urine pH 7 (4.5-8.0) Urine Specific [place] 1.010 (1.005-1.035) Urine Protein 1+ (NEGATIVE) H Urine Glucose (UA) Negative (NEGATIVE) Urine Ketones Negative (NEGATIVE) Urine Occult Blood Negative (NEGATIVE) Urine Nitrite Negative (NEGATIVE) Urine Bilirubin Negative (NEGATIVE) Urine Urobilinogen Normal MG/DL (0.0-1.0) Urine Leukocyte Esterase 1+ (NEGATIVE) H Urine RBC 0-2 /HPF (0 - 0) H Urine WBC 0-2 /HPF (0 - 0) Urine Squamous Epithelial Cells Occasional /LPF Urine Bacteria Occasional /HPF (NONE) Phosphorus Level 3.7 MG/DL (2.5-4.9) Magnesium Level 1.9 MG/DL (1.8-2.4) Current Medications Medications (Trade) Dose Ordered Sig/Tameka Route PRN Reason Start Time Stop Time Status Last Admin Dose Admin Acetaminophen (Tylenol) 650 mg Q4H PRN ORAL FEVER 09/01/17 14:30 10/01/17 14:29 09/02/17 09:48 Albuterol/ Ipratropium (DuoNeb 0.5-3(2.5)mg/3ml) 3 ml Q4H PRN HHN Shortness of Breath 09/01/17 14:30 09/06/17 14:29 Amiodarone HCl (Cordarone) 200 mg DAILY GT 09/02/17 09:00 10/02/17 08:59 09/02/17 08:31 Aspirin (ASA) 81 mg DAILY GT 09/02/17 09:00 10/02/17 08:59 09/02/17 08:30 Clonidine HCl (Catapres) 0.1 mg Q6H PRN GT SBP > 160 09/01/17 14:30 10/01/17 14:29 Dextrose (Dextrose 50%) STAT PRN IV Hypoglycemia 09/01/17 14:30 10/01/17 14:29 Heparin Sodium (Porcine) (Heparin 5000 units/ml) 5,000 units EVERY 12 HOURS SUBQ 09/01/17 21:00 10/01/17 20:59 09/02/17 08:42 Lactulose (Cephulac) 20 gm BID GT 09/01/17 18:00 10/01/17 17:59 09/02/17 09:00 Levetiracetam (Keppra) 500 mg Q12HR GT 09/01/17 21:00 10/01/17 20:59 09/02/17 08:30 Lorazepam (Ativan 2mg/ml 1ml) 2 mg Q2H PRN IV For Anxiety 09/01/17 14:30 09/08/17 14:29 Morphine Sulfate (Morphine Sulfate) 4 mg Q4H PRN IVP Severe Pain (Pain Scale 7-10) 09/01/17 14:30 09/08/17 14:29 09/02/17 09:49 Ondansetron HCl (Zofran) 4 mg Q6H PRN IVP Nausea & Vomiting 09/01/17 14:30 10/01/17 14:29 Pantoprazole (Protonix) 40 mg DAILY IV 09/02/17 09:00 10/02/17 08:59 09/02/17 08:30 Piperacillin Sod/ Tazobactam Sod 3.375 gm/Sodium Chloride 110 ml @ 27.5 mls/hr Q8H IVPB 09/01/17 16:00 09/08/17 15:59 09/02/17 08:27 Polyethylene Glycol (Miralax) 17 gm DAILYPRN PRN GT Constipation 09/01/17 14:30 10/01/17 14:29 Vancomycin/Sodium Chloride 250 ml @ 166.667 mls/hr DAILY@1999 IVPB 09/01/17 20:00 09/06/17 19:59 09/01/17 21:09 ROXANNE BELLO Sep 02, 2017 10:24
--- NOTE | 2017-09-02 10:33 | Pulmonology Progress Note ---
Assessment/Plan Problems: (1) Chronic respiratory acidosis (2) Leukocytosis (3) Atrial fibrillation (4) Anemia (5) EF of 30 (6) Tracheostomy dependence Respiratory: adjust tidal volume, adjust FIO2, CXR Cardiac: continue to monitor HR/BP Renal: F/U I&O Infectious Disease: check cultures Gastrointestinal: continue feedings/current rate, hold feedings Endocrine: check TSH Neurologic: PRN Ativan Prophylaxis: Protonix Time Spent (Minutes): 40 Notes Reviewed: cardio, ID Discussed with: nurses, consultants, returned case inspector Subjective ROS Limited/Unobtainable: No Constitutional: Reports: no symptoms HEENT: Repors: no symptoms Respiratory: Reports: no symptoms Allergies: Coded Allergies: No Known Allergies (Unverified , 03/07/17) Objective Last 24 Hour Vital Signs Date Time Temp Pulse Resp B/P (MAP) Pulse Ox O2 Delivery O2 Flow Rate FiO2 09/02/17 10:00 100 09/02/17 09:29 107 18 35 09/02/17 08:00 30 09/02/17 08:00 106 09/02/17 08:00 99.9 101 19 111/60 100 Mechanical Ventilator 35 09/02/17 07:09 105 20 35 09/02/17 05:34 105 21 35 09/02/17 04:00 99.0 102 20 99/57 100 Mechanical Ventilator 15.0 35 09/02/17 04:00 30 09/02/17 04:00 103 09/02/17 02:32 103 21 35 09/02/17 02:28 104 22 35 09/02/17 00:57 101 19 35 09/02/17 00:00 104 09/02/17 00:00 99.0 106 20 101/61 100 Mechanical Ventilator 15.0 35 09/01/17 22:49 106 21 35 09/01/17 21:19 101 20 35 09/01/17 20:00 30 09/01/17 20:00 102 09/01/17 20:00 99.0 98 16 122/64 100 Mechanical Ventilator 15.0 35 09/01/17 19:20 105 21 35 09/01/17 17:05 98.8 94 20 91/64 100 Mechanical Ventilator 30 09/01/17 16:30 72 18 35 09/01/17 16:00 30 09/01/17 16:00 104 09/01/17 14:50 99.0 101 17 92/61 100 Room Air 15.0 30 09/01/17 14:30 101 17 92/61 100 Room Air 09/01/17 14:30 75 21 30 09/01/17 12:31 30 09/01/17 12:30 89 18 30 09/01/17 11:01 99.0 103 22 95/58 100 Mechanical Ventilator 30 09/01/17 10:58 108 21 Mechanical Ventilator 15.0 30 09/01/17 10:58 108 21 30 09/01/17 10:45 99.0 102 20 95/58 95 Mechanical Ventilator 30 General Appearance: WD/WN HEENT: normocephalic, atraumatic Respiratory/Chest: chest wall non-tender, lungs clear Cardiovascular: normal peripheral pulses, normal rate Abdomen: normal bowel sounds, soft, non tender Extremities: no cyanosis Skin: no rash 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: caul fat puller 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 normal Lymphatic: no neck adenopathy Musculoskeletal: normal muscle bulk Laboratory Tests 09/01/17 11:47: White Blood Count 11.4H, Red Blood Count 3.30L, Hemoglobin 9.5L, Hematocrit 31.0L, Mean Corpuscular Volume 94, Mean Corpuscular Hemoglobin 28.9, Mean Corpuscular Hemoglobin Concent 30.8L, Red Cell Distribution Width 14.9H, Platelet Count 330, Mean Platelet Volume 5.3L, Neutrophils (%) (Auto) 75.7H, Lymphocytes (%) (Auto) 13.2L, Monocytes (%) (Auto) 7.3, Eosinophils (%) (Auto) 2.8, Basophils (%) (Auto) 1.0, Prothrombin Time 10.7, Prothromb Time International Ratio 1.0, Activated Partial Thromboplast Time 25, Sodium Level 136, Potassium Level 5.2H, Chloride Level 100, Carbon Dioxide Level 29, Anion Gap 7, Blood Urea Nitrogen 50H, Creatinine 0.8, Estimat Glomerular Filtration Rate > 60, Glucose Level 87, Lactic Acid Level 0.90, Calcium Level 10.0, Total Bilirubin 0.2, Aspartate Amino Transf (AST/SGOT) 53H, Alanine Aminotransferase ( ALT/SGPT) 100H, Alkaline Phosphatase 149H, Total Creatine Kinase 58, Creatine Kinase MB 3.0, Creatine Kinase MB Relative Index 5.1, Troponin I 0.000, Pro-B- Type Natriuretic Peptide 231H, Total Protein 7.8, Albumin 2.1L, Globulin 5.7, Albumin/Globulin Ratio 0.4L 09/01/17 13:10: Urine Color Yellow, Urine Appearance Clear, Urine pH 7, Urine Specific [place] 1.010, Urine Protein 1+H, Urine Glucose (UA) Negative, Urine Ketones Negative, Urine Occult Blood Negative, Urine Nitrite Negative, Urine Bilirubin Negative, Urine Urobilinogen Normal, Urine Leukocyte Esterase 1+H, Urine RBC 0-2H, Urine WBC 0-2, Urine Squamous Epithelial Cells Occasional, Urine Bacteria Occasional 09/02/17 03:50: White Blood Count 8.3, Red Blood Count 2.88L, Hemoglobin 8.8L, Hematocrit 26.9L , Mean Corpuscular Volume 93, Mean Corpuscular Hemoglobin 30.6, Mean Corpuscular Hemoglobin Concent 32.8, Red Cell Distribution Width 14.7, Platelet Count 409, Mean Platelet Volume 5.4L, Neutrophils (%) (Auto) 65.7, Lymphocytes ( %) (Auto) 18.8L, Monocytes (%) (Auto) 10.0, Eosinophils (%) (Auto) 4.9H, Basophils (%) (Auto) 0.6, Sodium Level 136, Potassium Level 4.4, Chloride Level 102, Carbon Dioxide Level 28, Anion Gap 6, Blood Urea Nitrogen 37H, Creatinine 0.8, Estimat Glomerular Filtration Rate > 60, Glucose Level 99, Calcium Level 10.1, Troponin I 0.000, Albumin 2.0L, Phosphorus Level 3.7, Magnesium Level 1.9 Current Medications Medications (Trade) Dose Ordered Sig/Tameka Route PRN Reason Start Time Stop Time Status Last Admin Dose Admin Acetaminophen (Tylenol) 650 mg Q4H PRN ORAL FEVER 09/01/17 14:30 10/01/17 14:29 09/02/17 09:48 Albuterol/ Ipratropium (DuoNeb 0.5-3(2.5)mg/3ml) 3 ml Q4H PRN HHN Shortness of Breath 09/01/17 14:30 09/06/17 14:29 Amiodarone HCl (Cordarone) 200 mg DAILY GT 09/02/17 09:00 10/02/17 08:59 09/02/17 08:31 Aspirin (ASA) 81 mg DAILY GT 09/02/17 09:00 10/02/17 08:59 09/02/17 08:30 Clonidine HCl (Catapres) 0.1 mg Q6H PRN GT SBP > 160 09/01/17 14:30 10/01/17 14:29 Dextrose (Dextrose 50%) STAT PRN IV Hypoglycemia 09/01/17 14:30 10/01/17 14:29 Heparin Sodium (Porcine) (Heparin 5000 units/ml) 5,000 units EVERY 12 HOURS SUBQ 09/01/17 21:00 10/01/17 20:59 09/02/17 08:42 Lactulose (Cephulac) 20 gm BID GT 09/01/17 18:00 10/01/17 17:59 09/02/17 09:00 Levetiracetam (Keppra) 500 mg Q12HR GT 09/01/17 21:00 10/01/17 20:59 09/02/17 08:30 Lorazepam (Ativan 2mg/ml 1ml) 2 mg Q2H PRN IV For Anxiety 09/01/17 14:30 09/08/17 14:29 Morphine Sulfate (Morphine Sulfate) 4 mg Q4H PRN IVP Severe Pain (Pain Scale 7-10) 09/01/17 14:30 09/08/17 14:29 09/02/17 09:49 Ondansetron HCl (Zofran) 4 mg Q6H PRN IVP Nausea & Vomiting 09/01/17 14:30 10/01/17 14:29 Pantoprazole (Protonix) 40 mg DAILY IV 09/02/17 09:00 10/02/17 08:59 09/02/17 08:30 Piperacillin Sod/ Tazobactam Sod 3.375 gm/Sodium Chloride 110 ml @ 27.5 mls/hr Q8H IVPB 09/01/17 16:00 09/08/17 15:59 09/02/17 08:27 Polyethylene Glycol (Miralax) 17 gm DAILYPRN PRN GT Constipation 09/01/17 14:30 10/01/17 14:29 Vancomycin/Sodium Chloride 250 ml @ 166.667 mls/hr DAILY@2000 IVPB 09/01/17 20:00 09/06/17 19:59 09/01/17 21:09 ODETTE SMILEY Sep 02, 2017 10:33
--- NOTE | 2017-09-02 10:37 | Wound Care Consultation ---
Wound Assessment Wound Assessment #1: Wound Number: 1 Wound Present on Admission: Yes New Wound: No Status Change of Wound: No Wound Location Body Site Modif: right Wound Location Body Site: ear Wound Type: pressure ulcer Francis Test: Does not Francis Pressure Ulcer Stage: IV - history of stage 4 , resolving Wound Thickness: Full Thickness Wound Length: 0.3 Wound Width: 0.3 Wound Depth: utd Percent of Wound Black/Brown: 100 Other Colors Identified: surrounding skin with full thickness scar tissue 1.0cmx1.0cm Wound Drainage Amount: None Wound Drainage Odor: None/Absent Tissue Surrounding Wound: Erythemic Wound General Appearance: Reddened Wound Assessment #2: Wound Number: 2 Wound Present on Admission: Yes New Wound: No Status Change of Wound: No Wound Location Body Site Modif: right, lateral Wound Location Body Site: knee Wound Type: pressure ulcer Francis Test: Does not Francis Pressure Ulcer Stage: IV Wound Thickness: Full Thickness Wound Length: 1.5 Wound Width: 1.5 Wound Depth: 0.3 Percent of Wound Anegam/Red: 90 Percent of Wound Bed Yellow/Wh: 10 Other Colors Identified: surrounding periwound full thickness scar tissue2.5cmx2.5cm Wound Drainage Description: Serosanguineous Wound Drainage Amount: Moderate Wound Drainage Odor: None/Absent Tissue Surrounding Wound: Macerated Wound General Appearance: Reddened, Draining, Necrotic Wound Assessment #3: Wound Number: 3 Wound Present on Admission: Yes New Wound: No Status Change of Wound: No Wound Location Body Site Modif: right, posterior Wound Location Body Site: scapula Wound Type: pressure ulcer Francis Test: Does not Francis Pressure Ulcer Stage: Unstageable Wound Thickness: Full Thickness Wound Length: 3.0 Wound Width: 4.0 Wound Depth: utd Percent of Wound Anegam/Red: 60 Percent of Wound Bed Yellow/Wh: 40 Wound Drainage Description: Serosanguineous Wound Drainage Amount: Moderate Wound Drainage Odor: None/Absent Tissue Surrounding Wound: Macerated Wound General Appearance: Reddened, Draining, Necrotic Wound Assessment #4: Wound Number: 4 Wound Present on Admission: Yes New Wound: No Status Change of Wound: No Wound Location Body Site Modif: right, lateral Wound Location Body Site: malleolus/ankle Wound Type: pressure ulcer Francis Test: Does not Francis Pressure Ulcer Stage: Unstageable - 4 Wound Thickness: Full Thickness Wound Length: 2.0 Wound Width: 2.0 Wound Depth: utd Percent of Wound Anegam/Red: 30 Percent of Wound Bed Yellow/Wh: 60 Percent of Wound Purple/Maroon: 10 Wound Drainage Description: Serosanguineous Wound Drainage Amount: Moderate Wound Drainage Odor: None/Absent Tissue Surrounding Wound: Macerated Wound General Appearance: Reddened, Draining, Necrotic Wound Assessment #5: Wound Number: 5 Wound Present on Admission: Yes New Wound: No Status Change of Wound: No Wound Location Body Site Modif: right Wound Location Body Site: heel Wound Type: pressure ulcer Francis Test: Does not Francis Pressure Ulcer Stage: Deep Tissue Injury - SUSPECTED Wound Length: 4.0 Wound Width: 4.0 Percent of Wound Anegam/Red: 50 Percent of Wound Purple/Maroon: 50 Other Colors Identified: scar tissues Wound Drainage Amount: None Wound Drainage Odor: None/Absent Tissue Surrounding Wound: Erythemic - intact Wound General Appearance: Reddened Wound Assessment #6: Wound Number: 6 Wound Present on Admission: Yes New Wound: No Status Change of Wound: No Wound Location Body Site Modif: right Wound Location Body Site: trochanter Wound Type: pressure ulcer Francis Test: Does not Francis Pressure Ulcer Stage: Unstageable Wound Thickness: Full Thickness Wound Length: 7.0 Wound Width: 10.0 Wound Depth: utd Percent of Wound Anegam/Red: 10 Percent of Wound Bed Yellow/Wh: 70 Percent of Wound Purple/Maroon: 20 Other Colors Identified: surrounding tissue full thickness scar tissue, red in color Wound Drainage Description: Serosanguineous Wound Drainage Amount: Moderate Wound Drainage Odor: None/Absent Tissue Surrounding Wound: Macerated Wound General Appearance: Reddened, Draining, Necrotic Wound Assessment #7: Wound Number: 7 Wound Present on Admission: Yes New Wound: No Status Change of Wound: No Wound Location Body Site Modif: right Wound Location Body Site: ischial tuberosity Wound Type: pressure ulcer Francis Test: Does not Francis Pressure Ulcer Stage: Unstageable Wound Thickness: Full Thickness Wound Length: 10.0 Wound Width: 7.0 Wound Depth: utd Percent of Wound Anegam/Red: 50 Percent of Wound Bed Yellow/Wh: 30 Percent of Wound Purple/Maroon: 20 Wound Drainage Description: Serosanguineous Wound Drainage Amount: Moderate Wound Drainage Odor: None/Absent Tissue Surrounding Wound: Macerated - erythemic Wound General Appearance: Reddened, Draining, Necrotic Wound Assessment #8: Wound Number: 8 Wound Present on Admission: Yes New Wound: No Status Change of Wound: No Wound Location Body Site Modif: left Wound Location Body Site: ear Wound Type: pressure ulcer Francis Test: Does not Francis Pressure Ulcer Stage: IV - history stage 4 Wound Thickness: Full Thickness - scar Wound Length: 4.0 Wound Width: 1.5 Percent of Wound Anegam/Red: 100 - scar with red pigmentation at risk for breakdown Wound Drainage Amount: None Wound Drainage Odor: None/Absent Tissue Surrounding Wound: Erythemic Wound General Appearance: Reddened Wound Assessment #9: Wound Number: 9 Wound Present on Admission: Yes New Wound: No Status Change of Wound: No Wound Location Body Site Modif: mid Wound Location Body Site: other - sacrococcygeal Wound Type: pressure ulcer Francis Test: Does not Francis Pressure Ulcer Stage: IV Wound Thickness: Full Thickness Wound Length: 14.0 Wound Width: 20.0 Wound Depth: 3.5 Percent of Wound Anegam/Red: 80 Percent of Wound Purple/Maroon: 20 Wound Drainage Description: Serosanguineous Wound Drainage Amount: Copious Wound Drainage Odor: None/Absent Tissue Surrounding Wound: Macerated Wound Undermining at 12:00: 3.0 Wound Undermining at 3:00: 3.0 Wound Undermining at 9:00: 1.5 Wound General Appearance: Reddened - maroon scattered to wound bed., Draining, Bone Palpable, Muscle Visible Wound Assessment #10: Wound Number: 10 Wound Present on Admission: Yes New Wound: No Status Change of Wound: No Wound Location Body Site Modif: left Wound Location Body Site: trochanter Wound Type: pressure ulcer Francis Test: Does not Francis Pressure Ulcer Stage: Unstageable Wound Thickness: Full Thickness Wound Length: 4.0 Wound Width: 5.0 Wound Depth: utd Percent of Wound Anegam/Red: 40 Percent of Wound Bed Yellow/Wh: 10 Percent of Wound Purple/Maroon: 50 Wound Drainage Description: Serosanguineous Wound Drainage Amount: Moderate Wound Drainage Odor: None/Absent Tissue Surrounding Wound: Macerated - erythemic. Wound General Appearance: Reddened - scattered maroon color to surrounding full thickness scar tissue. Wound Assessment #11: Wound Number: 11 Wound Present on Admission: Yes New Wound: No Status Change of Wound: No Wound Location Body Site Modif: left Wound Location Body Site: buttocks - extending to left ischial area. Wound Type: pressure ulcer Francis Test: Does not Francis Pressure Ulcer Stage: III - scattered stage III Wound Thickness: Full Thickness Wound Length: 10.0 Wound Width: 8.0 Wound Depth: 0.3 Percent of Wound Anegam/Red: 100 Wound Drainage Description: Serosanguineous Wound Drainage Amount: Moderate Wound Drainage Odor: None/Absent Tissue Surrounding Wound: Macerated - erythemic Wound General Appearance: Reddened, Draining Wound Assessment #12: Wound Number: 12 Wound Present on Admission: Yes New Wound: No Status Change of Wound: No Wound Location Body Site Modif: left, lateral Wound Location Body Site: malleolus/ankle Wound Type: pressure ulcer Francis Test: Does not Francis Pressure Ulcer Stage: Unstageable - 4 Wound Thickness: Full Thickness Wound Length: 3.0 Wound Width: 2.0 Wound Depth: utd Percent of Wound Anegam/Red: 20 Percent of Wound Bed Yellow/Wh: 40 Percent of Wound Purple/Maroon: 40 Other Colors Identified: full thickness scar tissue to surrounding wound. Wound Drainage Description: Serosanguineous Wound Drainage Amount: Moderate Wound Drainage Odor: None/Absent Tissue Surrounding Wound: Macerated - erythemic Wound General Appearance: Reddened, Draining, Necrotic Wound Assessment #13: Wound Number: 13 Wound Present on Admission: Yes New Wound: No Status Change of Wound: No Wound Location Body Site Modif: left Wound Location Body Site: heel Wound Type: pressure ulcer Francis Test: Does not Francis Pressure Ulcer Stage: Deep Tissue Injury - SUSPECTED Wound Thickness: Full Thickness Wound Length: 4.0 Wound Width: 4.0 Wound Depth: UTD Percent of Wound Anegam/Red: 50 Percent of Wound Purple/Maroon: 50 Wound Drainage Amount: None Wound Drainage Odor: None/Absent Tissue Surrounding Wound: Erythemic Wound General Appearance: Reddened - Scattered maroon color [employer]. Wound Assessment #14: Wound Number: 14 Wound Present on Admission: Yes New Wound: No Status Change of Wound: No Wound Location Body Site Modif: left, mid, lateral Wound Location Body Site: foot Wound Type: pressure ulcer Francis Test: Does not Francis Pressure Ulcer Stage: Deep Tissue Injury - suspected Wound Thickness: Full Thickness Wound Length: 1.0 Wound Width: 1.0 Wound Depth: utd Percent of Wound Anegam/Red: 50 Percent of Wound Purple/Maroon: 50 Wound Drainage Amount: None Wound Drainage Odor: None/Absent Tissue Surrounding Wound: Erythemic - intact. Wound General Appearance: Reddened - maroon Wound Assessment #15: Wound Number: 15 Wound Present on Admission: Yes New Wound: No Status Change of Wound: No Wound Location Body Site Modif: left, lateral Wound Location Body Site: metatarsal head - 5th Wound Type: pressure ulcer Francis Test: Does not Francis Pressure Ulcer Stage: Deep Tissue Injury - suspected Wound Thickness: Full Thickness Wound Length: 1.0 Wound Width: 1.0 Wound Depth: utd Percent of Wound Anegam/Red: 50 Percent of Wound Purple/Maroon: 50 Wound Drainage Amount: None Wound Drainage Odor: None/Absent Tissue Surrounding Wound: Erythemic - maroon. Wound General Appearance: Reddened Wound Assessment #16: Wound Number: 16 Wound Present on Admission: Yes New Wound: No Status Change of Wound: No Wound Location Body Site Modif: left Wound Location Body Site: foot - 1st toe Wound Type: pressure ulcer Francis Test: Does not Francis Pressure Ulcer Stage: Deep Tissue Injury - suspected with thick callous like skin adhered. Wound Thickness: Full Thickness Wound Length: 2.0 Wound Width: 1.0 Wound Depth: utd Percent of Wound Anegam/Red: 50 Percent of Wound Purple/Maroon: 50 Wound Drainage Amount: None Wound Drainage Odor: None/Absent Tissue Surrounding Wound: Erythemic Wound General Appearance: Reddened Wound Assessment #17: Wound Number: 17 Wound Present on Admission: Yes New Wound: No Status Change of Wound: No Wound Location Body Site Modif: left, medial Wound Location Body Site: malleolus/ankle Wound Type: pressure ulcer Francis Test: Does not Francis Pressure Ulcer Stage: Deep Tissue Injury - suspected , surrounding skin present with scar tissue . Wound Thickness: Full Thickness Wound Length: 1.0 Wound Width: 1.0 Wound Depth: utd Percent of Wound Anegam/Red: 50 Percent of Wound Purple/Maroon: 50 Wound Drainage Amount: None Wound Drainage Odor: None/Absent Tissue Surrounding Wound: Erythemic Wound General Appearance: Reddened - maroon. Wound Comment #1 Right ear stage 4 prressure ulcer resolving. #2 Right lateral knee unstageable pressure ulcer. #3 Right posterior scapula stage 4 pressure ulcer. #4 Right lateral malleolus stage 4 pressure ulcer. #5 Right heel stage SDTI pressure ulcer. #6 Right trochanter unstageable pressure ulcer. #7 Right ischial tuberosity unstageable pressure ulcer. #8 Left ear stage 4 pressure ulcer ,resolving. #9 Sacrococcygeal extending to left and right buttocks stage 4. #10 Left trochanter unstageable pressure ulcer. #11 Left buttocks extending to ischial area scattered stage 3. #12 Left lateral malleolus unstageable pressure ulcer. #13 Left heel suspected deep tissue injury. #14 Left lateral mid foot suspected deep tissue injury. #15 Left lateral 5th metatarsal head suspected deep tissue injury. #16 Left medial malleolus suspected deep tissue injury. #17 Left 1st big toe suspected deep tissue injury. #18 Right lateral lower extremity full thickness scar tissue. #19 Right Medial knee full thickness scar tissue with scab 0.2cmx0.2cm #20 Left lateral knee full thickness scar tissue. #21 Right medial malleolus full thickness scar tissue. #22 Left elbow full thickness scar tissue with red pigmentation hx of stage 4. #23 Left posterior scapula full thickness scar tissue. Recommendation. - Apply low air loss p200 mattress for wound and skin management. - Local wound care as ordered -Follow up with MD for consult with . - Turn and reposition. - Optimize nutrition. - Keep clean and dry. - Optimize nutrition. -Avoid shear and friction. -Offload heels and feet. - Offload between inner knee area. -Offload both ears. -Assess and notify MD for any further changes of condition noted to skin. AMALIA NIEVES Sep 02, 2017 10:37
[2017-09-02 11:50] LABS: ERYTHROCYTE SEDIMENTATION RATE 125 MM/HR (0-20)
[2017-09-02 12:00] VITALS: BP 109/70
[2017-09-02 12:16] LABS: RETICULOCYTE COUNT 2.5 % (0.0-2.0)
[2017-09-02 12:20] LABS: PROTHROMBIN TIME 10.9 SEC (9.30-11.50)
[2017-09-02 12:28] LABS: BAND NEUTROPHILS % (MANUAL) 0 % (0-8); BASOPHILS % (MANUAL) 1 % (0-2); EOSINOPHILS % (MANUAL) 5 % (0-3); LYMPHOCYTES % (MANUAL) 19 % (20-45); NEUTROPHILS % (MANUAL) 69 % (45-75); PLATELET ESTIMATE ADEQUATE; PLATELET MORPHOLOGY NORMAL; TOTAL CELLS COUNTED 100
[2017-09-02 12:31] LABS: PATH BLOOD SMEAR/OMC SENT TO PATHOLOGIST
[2017-09-02 12:53] LABS: LACTATE DEHYDROGENASE 118 U/L (81-234)
[2017-09-02 13:29] LABS: IRON 39 ug/dL (50-175); TOTAL IRON BINDING CAPACITY 151 ug/dL (250-450)
[2017-09-02 13:37] LABS: FOLIC ACID 85.7 NG/ML (3.1-17.5)
--- NOTE | 2017-09-02 13:49 | Cardiology Progress Note ---
Assessment/Plan Assessment/Plan vent arrythmia aboretd with ATP in may 2017 cardiomyopathy chronic vent therapy chronic g tube dependence anoxic encephalopathy episode ntoed in may so far neg no recent event s will need to be on bb adn amio check tft adn lft in [facility] tf chronic amio therapy will d/w ep i doubt that anything need or can be done now for the episode in may just start on bb consider acei if bp allow Subjective ROS Limited/Unobtainable: Yes Objective Last 24 Hour Vital Signs Date Time Temp Pulse Resp B/P (MAP) Pulse Ox O2 Delivery O2 Flow Rate FiO2 09/02/17 13:17 98 17 35 09/02/17 12:00 99.9 97 22 109/70 100 Mechanical Ventilator 35 09/02/17 12:00 30 09/02/17 11:24 115 24 35 09/02/17 10:47 98.1 09/02/17 10:19 99.9 09/02/17 10:00 100 09/02/17 09:29 107 18 35 09/02/17 08:00 30 09/02/17 08:00 106 09/02/17 08:00 99.9 101 19 111/60 100 Mechanical Ventilator 35 09/02/17 07:09 105 20 35 09/02/17 05:34 105 21 35 09/02/17 04:00 99.0 102 20 99/57 100 Mechanical Ventilator 15.0 35 09/02/17 04:00 30 09/02/17 04:00 103 09/02/17 02:32 103 21 35 09/02/17 02:28 104 22 35 09/02/17 00:57 101 19 35 09/02/17 00:00 104 09/02/17 00:00 99.0 106 20 101/61 100 Mechanical Ventilator 15.0 35 09/01/17 22:49 106 21 35 09/01/17 21:19 101 20 35 09/01/17 20:00 30 09/01/17 20:00 102 09/01/17 20:00 99.0 98 16 122/64 100 Mechanical Ventilator 15.0 35 09/01/17 19:20 105 21 35 09/01/17 17:05 98.8 94 20 91/64 100 Mechanical Ventilator 30 09/01/17 16:30 72 18 35 09/01/17 16:00 30 09/01/17 16:00 104 09/01/17 14:50 99.0 101 17 92/61 100 Room Air 15.0 30 09/01/17 14:30 101 17 /61 100 Room Air 09/01/17 14:30 75 21 30 General Appearance: no apparent distress, alert, on vent, patient on isolation Neck: supple Cardiovascular: regular rhythm Respiratory/Chest: lungs clear Abdomen: normal bowel sounds, non tender, soft Extremities: no swelling Intake and Output 09/02/17 09/03/17 19:00 07:00 # Bowel Movements 1 Laboratory Tests Test 09/02/17 03:50 09/02/17 11:00 White Blood Count 8.3 K/UL (4.8-10.8) Red Blood Count 2.88 M/UL (4.70-6.10) L Hemoglobin 8.8 G/DL (14.2-18.0) L Hematocrit 26.9 % (42.0-52.0) L Mean Corpuscular Volume 93 FL (80-99) Mean Corpuscular Hemoglobin 30.6 PG (27.0-31.0) Mean Corpuscular Hemoglobin Concent 32.8 G/DL (32.0-36.0) Red Cell Distribution Width 14.7 % (11.6-14.8) Platelet Count 409 K/UL (150-450) Mean Platelet Volume 5.4 FL (6.5-10.1) L Neutrophils (%) (Auto) 65.7 % (45.0-75.0) Lymphocytes (%) (Auto) 18.8 % (20.0-45.0) L Monocytes (%) (Auto) 10.0 % (1.0-10.0) Eosinophils (%) (Auto) 4.9 % (0.0-3.0) H Basophils (%) (Auto) 0.6 % (0.0-2.0) Differential Total Cells Counted 100 Neutrophils % (Manual) 69 % (45-75) Lymphocytes % (Manual) 19 % (20-45) L Monocytes % (Manual) 6 % (1-10) Eosinophils % (Manual) 5 % (0-3) H Basophils % (Manual) 1 % (0-2) Band Neutrophils 0 % (0-8) Platelet Estimate Adequate Platelet Morphology Normal Red Blood Cell Morphology Normal Erythrocyte Sedimentation Rate 125 MM/HR (0-20) H Reticulocyte Count 2.5 % (0.0-2.0) H Sodium Level 136 MMOL/L (136-145) Potassium Level 4.4 MMOL/L (3.5-5.1) Chloride Level 102 MMOL/L (98-107) Carbon Dioxide Level 28 MMOL/L (21-32) Anion Gap 6 mmol/L (5-15) Blood Urea Nitrogen 37 mg/dL (7-18) H Creatinine 0.8 MG/DL (0.55-1.30) Estimat Glomerular Filtration Rate > 60 mL/min (>60) Glucose Level 99 MG/DL (74-106) Calcium Level 10.1 MG/DL (8.5-10.1) Phosphorus Level 3.7 MG/DL (2.5-4.9) Magnesium Level 1.9 MG/DL (1.8-2.4) Troponin I 0.000 ng/mL (0.000-0.056) Albumin 2.0 G/DL (3.4-5.0) L Prothrombin Time 10.9 SEC (9.30-11.50) Prothromb Time International Ratio 1.0 (0.9-1.1) Activated Partial Thromboplast Time 29 SEC (23-33) Iron Level 39 ug/dL (50-175) L Total Iron Binding Capacity 151 ug/dL (250-450) L Percent Iron Saturation 26 % (15-50) Unsaturated Iron Binding 112 ug/dL (112-346) Lactate Dehydrogenase 118 U/L (81-234) Vitamin B12 Level 856 PG/ML (193-986) Folate 85.7 NG/ML (3.1-17.5) H Microbiology Date/Time Source Procedure Growth Status 09/02/17 05:00 Sacral Wound Gram Stain - Final Resulted 09/02/17 05:00 Sacral Wound Wound Culture Pending Resulted CELI FALCON Sep 02, 2017 13:49
[2017-09-02 16:00] VITALS: BP 97/62
[2017-09-02] MEDS: Vancomycin 750mg/NS 250ml 250 ML IVPB SCH (19:54)
[2017-09-02 20:00] VITALS: BP 100/63
--- NOTE | 2017-09-02 20:57 | Cardiology Report ---
APPROVED REPORT EXAM: Two-dimensional echocardiogram with contrast. INDICATION CAD M-Mode DIMENSIONS IVSd0.8 (0.7-1.1cm)Left Atrium (MM)2.1 (1.6-4.0cm) LVDd5.5 (3.5-5.6cm)Aortic Root2.3 (2.0-3.7cm) PWd1.2 (0.7-1.1cm)Aortic Cusp Exc.1.6 (1.5-2.0cm) LVDs4.0 (2.5-4.0cm) PWs1.2 cm Technically difficult study due to poor acoustical windows. Normal left ventricular chamber size, systolic function and wall motion except mild hypokinesis of post and inferior qiu . Left ventricular ejection fraction estimated to be 50%. No evidence of left ventricular hypertrophy. No evidence of pericardial or pleural effusion. All other cardiac chamber sizes are within normal limits. Focal aortic valve sclerosis with adequate cusp excursion. Thickened mitral valve leaflets with normal excursion. No evidence of mitral annulus and aortic root calcification. Pulmonic valve not well visualized. Normal tricuspid valve structure. IVC is not obtainable. Probable pacemaker wire present in the right side chambers. A color flow and spectral Doppler study was performed and revealed: No aortic regurgitation. No mitral regurgitation. Mitral diastolic velocities suggest reduced left ventricular relaxation c/w diastolic dysfunction grade 1. Trace tricuspid regurgitation. Tricuspid systolic velocities suggests peak right ventricular systolic pressure of 34mmHg
[2017-09-02] MEDS ORDERED: Vancomycin 1 GM in D5W 275 ML IV SCH (23:00)
[2017-09-03] VITALS: BP 112/71
[2017-09-03] MEDS: Piperacillin/Tazobactam 3.375 GM in NS 110 ML IVPB SCH ×4 (00:01→23:41)
[2017-09-03 04:00] VITALS: BP 103/71
[2017-09-03 05:33] LABS: BASOPHILS % (AUTO) 0.5 % (0.0-2.0); EOSINOPHILS % (AUTO) 4.9 % (0.0-3.0); LYMPHOCYTES % (AUTO) 16.2 % (20.0-45.0); MEAN CORPUSCULAR HEMOGLOBIN 31.4 PG (27.0-31.0); MEAN CORPUSCULAR HGB CONC 33.2 G/DL (32.0-36.0); MEAN CORPUSCULAR VOLUME 95 FL (80-99); MEAN PLATELET VOLUME 5.3 FL (6.5-10.1); MONOCYTES % (AUTO) 8.5 % (1.0-10.0); NEUTROPHILS % (AUTO) 69.9 % (45.0-75.0); PLATELET COUNT 430 K/UL (150-450); RED BLOOD COUNT 2.98 M/UL (4.70-6.10); RED CELL DISTRIBUTION WIDTH 14.8 % (11.6-14.8); WHITE BLOOD COUNT 10.1 K/UL (4.8-10.8)
[2017-09-03 05:36] LABS: INR 1.1 (0.9-1.1); PROTHROMBIN TIME 11.2 SEC (9.30-11.50)
[2017-09-03 06:10] LABS: ALANINE AMINOTRANSFERASE 64 U/L (12-78); ALBUMIN/GLOBULIN RATIO 0.3 (1.0-2.7); ANION GAP 7 mmol/L (5-15); ASPARTATE AMINO TRANSFERASE 30 U/L (15-37); CALCIUM 9.9 MG/DL (8.5-10.1); CARBON DIOXIDE 27 MMOL/L (21-32); CHLORIDE 106 MMOL/L (98-107); CREATININE 0.8 MG/DL (0.55-1.30); GLOMERULAR FILTRATION RATE > 60 mL/min (>60); PHOSPHORUS 3.6 MG/DL (2.5-4.9); POTASSIUM 4.1 MMOL/L (3.5-5.1); SODIUM 140 MMOL/L (136-145); THYROID STIMULATING HORMONE 1.526 uiU/mL (0.360-3.740); TOTAL PROTEIN 7.9 G/DL (6.4-8.2)
[2017-09-03 08:00] VITALS: BP 115/71
[2017-09-03] MEDS: Aspirin Baby 81mg GT SCH (08:20)
[2017-09-03] MEDS: Amiodarone 200mg tab GT SCH (08:20)
[2017-09-03] MEDS: levETIRAcetam 500mg/5ml Liquid GT SCH ×2 (08:20→20:52)
[2017-09-03] MEDS: Lactulose 20gm/30ml UDC GT SCH ×2 (08:21→18:00)
[2017-09-03] MEDS: Heparin 5000 units/ml inj SUBQ SCH ×2 (08:21→20:55)
[2017-09-03] MEDS: Pantoprazole Inj IV SCH (08:22)
--- NOTE | 2017-09-03 08:31 | Consultation ---
DATE OF CONSULTATION: 09/01/2017 CARDIOLOGY CONSULTATION CONSULTING PHYSICIAN: Andrés Casey M.D. REFERRING PHYSICIAN: Shani Moses M.D. REASON FOR REFERRAL: Abnormal defibrillator interrogation. HISTORY OF PRESENT ILLNESS: This is an unfortunate gentleman, who is really not able to provide any meaningful history whatsoever. The patient was brought to the emergency room at [facility] because of defibrillator interrogation that apparently was abnormal and he was referred for evaluation and this consultation subsequently requested. The patient is not able to provide any meaningful history. The patient has chronic ventilator therapy, PEG, and pressure ulcers. He lives in a convalescent facility. PAST MEDICAL HISTORY: Positive for history of chronic respiratory failure status post tracheostomy and PEG tube placement, history of anemia, healthcare-associated and ventilator-associated pneumonia, MDR infection, respiratory failure, atrial fibrillation, multiple decubitus ulcers, reactive thrombocytosis, acute on chronic anemia, chronic systolic heart failure with ejection fraction of 30%. He has paroxysmal episodes of atrial fibrillation, hypernatremia, hepatitis C infection, and anoxic encephalopathy. He has previously been on amiodarone. MEDICATIONS: Amiodarone 200 mg daily, aspirin 81 mg, clonidine, heparin 5000 q.12 hours, Atrovent, albuterol, lactulose, Keppra, Ativan, morphine, Zofran, Protonix, Zosyn, polyethylene glycol. ALLERGIES: He is not allergic to any medications. SOCIAL HISTORY: He is a resident of convalescent facility. REVIEW OF SYSTEMS: Unable to obtain. PHYSICAL EXAMINATION: GENERAL: Shows to be a middle-aged gentleman, in no respiratory distress, on mechanical ventilator therapy. VITAL SIGNS: The patient's blood pressure has been in the 91/64 to 122/64 and heart rates in the 101 to 106 range. He had been having some low-grade fevers in the 99 degrees. NECK: Supple. No jugular venous distention. LUNGS: Some rhonchi noted. CARDIAC: Regular rate and rhythm. ABDOMEN: Soft and nontender. EXTREMITIES: There is no edema. Some contractions in the extremities noted. LABORATORY AND DIAGNOSTIC DATA: White count 11.4, hemoglobin of 9.5, and platelet count of 330,000. Chemistries: Sodium is 136, potassium 5.2, chloride 100, bicarbonate 29, BUN of 50, creatinine 0.8, and glucose of 87. Calcium is 10. AST and ALT are 53 and 100 and alkaline phosphatase 149. ProBNP is only 239, it had been 1400 the last time. Troponin has been negative. His potassium was 5.2. His coags: INR is 1.0 and a PTT of 25. His urinalysis was 1+ leukocyte esterase and 0 to 2 RBCs and WBCs. A chest x-ray performed showed basically no acute processes or findings. ICD interrogation appears to show A-sense V-sense 99% of the time, A-sense V-paced less than 1%. His episodes showed nonsustained ventricular tachycardia on 06/25/2017 at 04:22 a.m. VT zone 2 detection, no therapy was delivered. On 06/10/2017, he had an episode of VF and ATP pacing x1, results below rate detection and aborted defibrillator apparently at that time and reported successful therapy with one episode of ventricular fibrillations on 05/25/2017 to 06/10/2017 was aborted with ATP. His telemetry so far showed sinus rhythm. His EKG shows sinus rhythm with normal QRS axis or slight rightward axis delay in R-wave progression being noted. No episodes of VT, VF, or atrial fibrillation on telemetry here. ASSESSMENT AND PLAN: 1. History of ventricular arrhythmias. 2. Cardiomyopathy. 3. History of intracardiac defibrillator placement. 4. Chronic respiratory failure, on a ventilator. 5. Chronic gastrostomy tube dependence. 6. Anoxic encephalopathy history. PLAN: Dr. Moses, this patient was seen in cardiac consultation. The patient requires further evaluation, possibly I am not sure if anything needs to be done now approximately two or three months after the episode of ventricular arrhythmias. He seems rather stable at this time. An echocardiogram will be ordered and I will check some electrolytes to make sure no arrhythmias. A set of cardiac enzymes will be repeated. EKG will be repeated. Thyroid-stimulating hormone will also be repeated. His LFTs are to be repeated again as well because of him being on amiodarone. His last TSH that was performed was in February 2017 and that needs to be repeated because he is on amiodarone as well. Andrés Casey M.D. DR: RELL JOB#: [id number] CC:
--- NOTE | 2017-09-03 11:26 | Pulmonology Progress Note ---
Assessment/Plan Problems: (1) Chronic respiratory acidosis (2) Leukocytosis (3) Atrial fibrillation (4) Anemia (5) EF of 30 (6) Tracheostomy dependence Respiratory: monitor respiratory rate, adjust FIO2 Cardiac: continue to monitor HR/BP Renal: F/U I&O Infectious Disease: check cultures Gastrointestinal: continue feedings/current rate Endocrine: monitor blood sugar Hematologic: transfuse if hgb<8.5 Neurologic: PRN Ativan, keep patient comfortable Affect: PRN ativan Prophylaxis: Protonix, Heparin Notes Reviewed: extension professor, renal Discussed with: consultants, case assembler Subjective ROS Limited/Unobtainable: No Constitutional: Reports: no symptoms HEENT: Repors: no symptoms Respiratory: Reports: no symptoms Allergies: Coded Allergies: No Known Allergies (Unverified , 03/07/17) Objective Last 24 Hour Vital Signs Date Time Temp Pulse Resp B/P (MAP) Pulse Ox O2 Delivery O2 Flow Rate FiO2 09/03/17 10:48 113 24 35 09/03/17 09:18 109 20 35 09/03/17 08:00 35 09/03/17 08:00 99.9 116 25 115/71 96 Mechanical Ventilator 35 09/03/17 08:00 113 09/03/17 06:40 113 20 35 09/03/17 05:28 107 20 35 09/03/17 04:00 97.2 100 103/71 100 Mechanical Ventilator 09/03/17 04:00 35 09/03/17 03:37 106 09/03/17 03:23 101 20 35 09/03/17 00:30 99 19 35 09/03/17 00:00 35 09/03/17 00:00 97.9 100 16 112/71 100 Mechanical Ventilator 09/03/17 00:00 103 09/02/17 23:16 100 22 35 09/02/17 20:46 101 20 35 09/02/17 20:36 98.1 09/02/17 20:00 98.1 100 18 100/63 Mechanical Ventilator 09/02/17 20:00 112 09/02/17 20:00 35 09/02/17 19:19 100 20 35 09/02/17 16:42 100 20 35 09/02/17 16:00 30 09/02/17 16:00 99 09/02/17 16:00 98.9 101 19 97/62 100 Mechanical Ventilator 35 09/02/17 15:15 98 28 35 09/02/17 13:17 98 17 35 09/02/17 12:00 99.9 97 22 109/70 100 Mechanical Ventilator 35 09/02/17 12:00 30 09/02/17 12:00 102 Intake and Output 09/03/17 09/04/17 19:00 07:00 Intake Total 193.0 ml Balance 193.0 ml Free Water 50 ml IV Total 53.0 ml Tube Feeding 90 ml General Appearance: WD/WN HEENT: normocephalic, atraumatic Respiratory/Chest: chest wall non-tender, normal breath sounds Cardiovascular: normal peripheral pulses, normal rate Abdomen: normal bowel sounds, soft, non tender Genitourinary: normal external genitalia Extremities: no clubbing Skin: no lesions 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: director of digital platforms 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 normal Lymphatic: no neck adenopathy Microbiology Date/Time Source Procedure Growth Status 09/01/17 11:57 Blood Blood Culture - Preliminary NO GROWTH AFTER 24 HOURS Resulted 09/01/17 11:47 Blood Blood Culture - Preliminary NO GROWTH AFTER 24 HOURS Resulted 09/01/17 14:25 Nasal Nares MRSA Culture - Final NO METHICILLIN RESISTANT STAPH AUREUS... Complete 09/02/17 05:00 Sacral Wound Gram Stain - Final Resulted 09/02/17 05:00 Wound Culture - Preliminary Staphylococcus Aureus Resulted Laboratory Tests 09/02/17 19:00: Stool Occult Blood Negative 09/03/17 03:45: White Blood Count 10.1, Red Blood Count 2.98L, Hemoglobin 9.4L, Hematocrit 28.2L , Mean Corpuscular Volume 95, Mean Corpuscular Hemoglobin 31.4H, Mean Corpuscular Hemoglobin Concent 33.2, Red Cell Distribution Width 14.8, Platelet Count 430, Mean Platelet Volume 5.3L, Neutrophils (%) (Auto) 69.9, Lymphocytes ( %) (Auto) 16.2L, Monocytes (%) (Auto) 8.5, Eosinophils (%) (Auto) 4.9H, Basophils (%) (Auto) 0.5, Prothrombin Time 11.2, Prothromb Time International Ratio 1.1, Activated Partial Thromboplast Time 30, Sodium Level 140, Potassium Level 4.1, Chloride Level 106, Carbon Dioxide Level 27, Anion Gap 7, Blood Urea Nitrogen 28H, Creatinine 0.8, Estimat Glomerular Filtration Rate > 60, Glucose Level 102, Calcium Level 9.9, Phosphorus Level 3.6, Magnesium Level 2.0, Total Bilirubin 0.2, Aspartate Amino Transf (AST/SGOT) 30, Alanine Aminotransferase ( ALT/SGPT) 64, Alkaline Phosphatase 140H, Troponin I 0.003, Pro-B-Type Natriuretic Peptide 541H, Total Protein 7.9, Albumin 2.0L, Globulin 5.9, Albumin /Globulin Ratio 0.3L, Thyroid Stimulating Hormone (TSH) 1.526 Current Medications Medications (Trade) Dose Ordered Sig/Tameka Route PRN Reason Start Time Stop Time Status Last Admin Dose Admin Acetaminophen (Tylenol) 650 mg Q4H PRN ORAL FEVER 09/01/17 14:30 10/01/17 14:29 09/02/17 19:37 Albuterol/ Ipratropium (DuoNeb 0.5-3(2.5)mg/3ml) 3 ml Q4H PRN HHN Shortness of Breath 09/01/17 14:30 09/06/17 14:29 Amiodarone HCl (Cordarone) 200 mg DAILY GT 09/02/17 09:00 10/02/17 08:59 09/03/17 08:20 Aspirin (ASA) 81 mg DAILY GT 09/02/17 09:00 10/02/17 08:59 09/03/17 08:20 Clonidine HCl (Catapres) 0.1 mg Q6H PRN GT SBP > 160 09/01/17 14:30 10/01/17 14:29 Dextrose (Dextrose 50%) STAT PRN IV Hypoglycemia 09/01/17 14:30 10/01/17 14:29 Heparin Sodium (Porcine) (Heparin 5000 units/ml) 5,000 units EVERY 12 HOURS SUBQ 09/01/17 21:00 10/01/17 20:59 09/03/17 08:21 Lactulose (Cephulac) 20 gm BID GT 09/01/17 18:00 10/01/17 17:59 09/03/17 08:21 Levetiracetam (Keppra) 500 mg Q12HR GT 09/01/17 21:00 10/01/17 20:59 09/03/17 08:20 Lorazepam (Ativan 2mg/ml 1ml) 2 mg Q2H PRN IV For Anxiety 09/01/17 14:30 09/08/17 14:29 Morphine Sulfate (Morphine Sulfate) 4 mg Q4H PRN IVP Severe Pain (Pain Scale 7-10) 09/01/17 14:30 09/08/17 14:29 09/02/17 23:28 Ondansetron HCl (Zofran) 4 mg Q6H PRN IVP Nausea & Vomiting 09/01/17 14:30 10/01/17 14:29 Pantoprazole (Protonix) 40 mg DAILY IV 09/02/17 09:00 10/02/17 08:59 09/03/17 08:22 Piperacillin Sod/ Tazobactam Sod 3.375 gm/Sodium Chloride 110 ml @ 27.5 mls/hr Q8H IVPB 09/01/17 16:00 09/08/17 15:59 09/03/17 08:20 Polyethylene Glycol (Miralax) 17 gm DAILYPRN PRN GT Constipation 09/01/17 14:30 10/01/17 14:29 Vancomycin HCl (Vanco rx to dose) 1 ea DAILY PRN MISC PER RX PROTOCOL 09/02/17 14:30 10/02/17 14:29 Vancomycin/Sodium Chloride 250 ml @ 166.667 mls/hr DAILY@1999 IVPB 09/01/17 20:00 09/06/17 19:59 09/02/17 19:54 ODETTE SMILEY Sep 03, 2017 11:26
[2017-09-03 12:08] VITALS: BP 104/71
[2017-09-03 16:00] VITALS: BP 102/65
--- NOTE | 2017-09-03 16:06 | Cardiology Report ---
APPROVED REPORT EKG Measurement Heart [id number] Sinus tachycardia Rightward axis Borderline ECG
--- NOTE | 2017-09-03 16:06 | Cardiology Report ---
APPROVED REPORT EKG Measurement Heart [id number] Sinus tachycardia Rightward axis Borderline ECG
[2017-09-03] MEDS ORDERED: Tubing IV Secondary IV ONE (18:48)
--- NOTE | 2017-09-03 18:56 | Cardiology Progress Note ---
Assessment/Plan Assessment/Plan vent arrythmia aboretd with ATP in may 2017 cardiomyopathy chronic vent therapy chronic g tube dependence anoxic encephalopathy episode ntoed in may so far neg no recent event s will need to be on bb adn amio d/w ep i doubt that anything need or can be done now for the episode in may just start on bb consider acei if bp allow lfts norml tsh normal Subjective ROS Limited/Unobtainable: Yes Objective Last 24 Hour Vital Signs Date Time Temp Pulse Resp B/P (MAP) Pulse Ox O2 Delivery O2 Flow Rate FiO2 09/03/17 16:45 115 09/03/17 16:38 108 22 35 09/03/17 16:00 98.5 133 38 102/65 100 Mechanical Ventilator 35 09/03/17 16:00 35 09/03/17 15:38 110 24 35 09/03/17 12:48 109 22 35 09/03/17 12:42 118 09/03/17 12:08 99.5 122 28 104/71 100 Mechanical Ventilator 35 09/03/17 12:00 35 09/03/17 10:48 113 24 35 09/03/17 09:18 109 20 35 09/03/17 08:00 35 09/03/17 08:00 99.9 116 25 115/71 96 Mechanical Ventilator 35 09/03/17 08:00 113 09/03/17 06:40 113 20 35 09/03/17 05:28 107 20 35 09/03/17 04:00 97.2 100 103/71 100 Mechanical Ventilator 09/03/17 04:00 35 09/03/17 03:37 106 09/03/17 03:23 101 20 35 09/03/17 00:30 99 19 35 09/03/17 00:00 35 09/03/17 00:00 97.9 100 16 112/71 100 Mechanical Ventilator 09/03/17 00:00 103 09/02/17 23:16 100 22 35 09/02/17 20:46 101 20 35 09/02/17 20:36 98.1 09/02/17 20:00 98.1 100 18 100/63 Mechanical Ventilator 09/02/17 20:00 112 09/02/17 20:00 35 09/02/17 19:19 100 20 35 General Appearance: no apparent distress, on vent, patient on isolation Neck: supple Cardiovascular: normal rate Respiratory/Chest: rhonchi - bilaterally Abdomen: normal bowel sounds, non tender, soft Extremities: no swelling Intake and Output 09/03/17 09/04/17 19:00 07:00 Intake Total 645.0 ml Output Total 350 ml Balance 295.0 ml Free Water 150 ml IV Total 165.0 ml Tube Feeding 330 ml Output Urine Total 350 ml # Bowel Movements 1 Laboratory Tests Test 09/02/17 19:00 09/03/17 03:45 Stool Occult Blood Negative (NEGATIVE) White Blood Count 10.1 K/UL (4.8-10.8) Red Blood Count 2.98 M/UL (4.70-6.10) L Hemoglobin 9.4 G/DL (14.2-18.0) L Hematocrit 28.2 % (42.0-52.0) L Mean Corpuscular Volume 95 FL (80-99) Mean Corpuscular Hemoglobin 31.4 PG (27.0-31.0) H Mean Corpuscular Hemoglobin Concent 33.2 G/DL (32.0-36.0) Red Cell Distribution Width 14.8 % (11.6-14.8) Platelet Count 430 K/UL (150-450) Mean Platelet Volume 5.3 FL (6.5-10.1) L Neutrophils (%) (Auto) 69.9 % (45.0-75.0) Lymphocytes (%) (Auto) 16.2 % (20.0-45.0) L Monocytes (%) (Auto) 8.5 % (1.0-10.0) Eosinophils (%) (Auto) 4.9 % (0.0-3.0) H Basophils (%) (Auto) 0.5 % (0.0-2.0) Prothrombin Time 11.2 SEC (9.30-11.50) Prothromb Time International Ratio 1.1 (0.9-1.1) Activated Partial Thromboplast Time 30 SEC (23-33) Sodium Level 140 MMOL/L (136-145) Potassium Level 4.1 MMOL/L (3.5-5.1) Chloride Level 106 MMOL/L (98-107) Carbon Dioxide Level 27 MMOL/L (21-32) Anion Gap 7 mmol/L (5-15) Blood Urea Nitrogen 28 mg/dL (7-18) H Creatinine 0.8 MG/DL (0.55-1.30) Estimat Glomerular Filtration Rate > 60 mL/min (>60) Glucose Level 102 MG/DL (74-106) Calcium Level 9.9 MG/DL (8.5-10.1) Phosphorus Level 3.6 MG/DL (2.5-4.9) Magnesium Level 2.0 MG/DL (1.8-2.4) Total Bilirubin 0.2 MG/DL (0.2-1.0) Aspartate Amino Transf (AST/SGOT) 30 U/L (15-37) Alanine Aminotransferase (ALT/SGPT) 64 U/L (12-78) Alkaline Phosphatase 140 U/L (46-116) H Troponin I 0.003 ng/mL (0.000-0.056) Pro-B-Type Natriuretic Peptide 541 pg/mL (0-125) H Total Protein 7.9 G/DL (6.4-8.2) Albumin 2.0 G/DL (3.4-5.0) L Globulin 5.9 g/dL Albumin/Globulin Ratio 0.3 (1.0-2.7) L Thyroid Stimulating Hormone (TSH) 1.526 uiU/mL (0.360-3.740) Microbiology Date/Time Source Procedure Growth Status 09/01/17 11:57 Blood Blood Culture - Preliminary NO GROWTH AFTER 24 HOURS Resulted 09/01/17 11:47 Blood Blood Culture - Preliminary NO GROWTH AFTER 24 HOURS Resulted 09/01/17 14:25 Nasal Nares MRSA Culture - Final NO METHICILLIN RESISTANT STAPH AUREUS... Complete 09/02/17 05:00 Sacral Wound Gram Stain - Final Resulted 09/02/17 05:00 Wound Culture - Preliminary Staphylococcus Aureus Resulted CELI FALCON Sep 03, 2017 18:56
--- NOTE | 2017-09-03 20:08 | Infectious Diseases Prog Note ---
Assessment/Plan Assessment/Plan Assessment: //Tachycardia>Arrhythmia- r/o infectious process- so far none identified; r/o bacteremia -afebrile -Bcx NGTD -CXR no acute disease -u/a neg //Leukocytosis, mild- resolved // Recent HCAP / VAP SP - SCx 08/13 : +4 MDR A. baumani (S. Colistin, Polymxin B ) and +4 MDR PsA (S. Cefepime, Gentamicn/Amkikacin); s/p Rx Vanco, Zosyn, INH colistin r/o recurrence - CXR 09/01: Lungs and pleural spaces are clear - h/o MDR-ACB, KPC, Providencia, XDR Pseudomonas // Chronic sacrococcygeal osteomyelitis - previous evaluation by surgery deemed not a surgical candidate - CT with contrast--some sacral/coccygeal erosion, but no abscess. no profound progression. - h/o MDR ACB, C albicans, and KPC (sensitive only to colistin) // Multiple decubiti POA, not grossly infected // h/o Coag neg staph RUE PICC associated bacteremia // h/o MDR Klebsiella and zosyn resistant Pseudomonas asymptomatic bacteriuria // HCV Ab+, no transaminitis currently // Negative HIV Chronic VDRF SP trach, PEG Chronic anoxic encephalopathy SP cardiac arrest Elevated ESR - worse Reactive thrombocytosis Cachexia with elevated CEA, normal PSA Acute on chronic anemia Sinus tachycardia Chronic systolic CHF, EF 30% SP AICD Paroxysmal Afib Residential resident MDRO colonized NKDA Full code Plan: -DC empiric IV vancomycin d# 3, continue empiric Zosyn d# 3 for now pending cultures -f/u cx -Monitor CBC/BMP, temperatures -monitor CXR -peg/trach care -aspiration precautions. Subjective Allergies: Coded Allergies: No Known Allergies (Unverified , 03/07/17) Subjective remains afebrile appears comfortable Objective Vital Signs Last 24 Hour Vital Signs Date Time Temp Pulse Resp B/P (MAP) Pulse Ox O2 Delivery O2 Flow Rate FiO2 09/03/17 19:05 110 23 35 09/03/17 16:45 115 09/03/17 16:38 108 22 35 09/03/17 16:00 98.5 133 38 102/65 100 Mechanical Ventilator 35 09/03/17 16:00 35 09/03/17 15:38 110 24 35 09/03/17 12:48 109 22 35 09/03/17 12:42 118 09/03/17 12:08 99.5 122 28 104/71 100 Mechanical Ventilator 35 09/03/17 12:00 35 09/03/17 10:48 113 24 35 09/03/17 09:18 109 20 35 09/03/17 08:00 35 09/03/17 08:00 99.9 116 25 115/71 96 Mechanical Ventilator 35 09/03/17 08:00 113 09/03/17 06:40 113 20 35 09/03/17 05:28 107 20 35 09/03/17 04:00 97.2 100 103/71 100 Mechanical Ventilator 09/03/17 04:00 35 09/03/17 03:37 106 09/03/17 03:23 101 20 35 09/03/17 00:30 99 19 35 09/03/17 00:00 35 09/03/17 00:00 97.9 100 16 112/71 100 Mechanical Ventilator 09/03/17 00:00 103 09/02/17 23:16 100 22 35 09/02/17 20:46 101 20 35 09/02/17 20:36 98.1 Height (Feet): 5 Height (Inches): 7.00 Weight (Pounds): 158 General Appearance: no acute distress Respiratory/Chest: no respiratory distress Cardiovascular: normal rate, regular rhythm Abdomen: normal bowel sounds, soft, non tender, non distended Microbiology Date/Time Source Procedure Growth Status 09/01/17 11:57 Blood Blood Culture - Preliminary NO GROWTH AFTER 24 HOURS Resulted 09/01/17 11:47 Blood Blood Culture - Preliminary NO GROWTH AFTER 24 HOURS Resulted 09/01/17 14:25 Nasal Nares MRSA Culture - Final NO METHICILLIN RESISTANT STAPH AUREUS... Complete 09/02/17 05:00 Sacral Wound Gram Stain - Final Resulted 09/02/17 05:00 Wound Culture - Preliminary Staphylococcus Aureus Resulted Laboratory Tests Test 09/03/17 03:45 White Blood Count 10.1 K/UL (4.8-10.8) Red Blood Count 2.98 M/UL (4.70-6.10) L Hemoglobin 9.4 G/DL (14.2-18.0) L Hematocrit 28.2 % (42.0-52.0) L Mean Corpuscular Volume 95 FL (80-99) Mean Corpuscular Hemoglobin 31.4 PG (27.0-31.0) H Mean Corpuscular Hemoglobin Concent 33.2 G/DL (32.0-36.0) Red Cell Distribution Width 14.8 % (11.6-14.8) Platelet Count 430 K/UL (150-450) Mean Platelet Volume 5.3 FL (6.5-10.1) L Neutrophils (%) (Auto) 69.9 % (45.0-75.0) Lymphocytes (%) (Auto) 16.2 % (20.0-45.0) L Monocytes (%) (Auto) 8.5 % (1.0-10.0) Eosinophils (%) (Auto) 4.9 % (0.0-3.0) H Basophils (%) (Auto) 0.5 % (0.0-2.0) Prothrombin Time 11.2 SEC (9.30-11.50) Prothromb Time International Ratio 1.1 (0.9-1.1) Activated Partial Thromboplast Time 30 SEC (23-33) Sodium Level 140 MMOL/L (136-145) Potassium Level 4.1 MMOL/L (3.5-5.1) Chloride Level 106 MMOL/L (98-107) Carbon Dioxide Level 27 MMOL/L (21-32) Anion Gap 7 mmol/L (5-15) Blood Urea Nitrogen 28 mg/dL (7-18) H Creatinine 0.8 MG/DL (0.55-1.30) Estimat Glomerular Filtration Rate > 60 mL/min (>60) Glucose Level 102 MG/DL (74-106) Calcium Level 9.9 MG/DL (8.5-10.1) Phosphorus Level 3.6 MG/DL (2.5-4.9) Magnesium Level 2.0 MG/DL (1.8-2.4) Total Bilirubin 0.2 MG/DL (0.2-1.0) Aspartate Amino Transf (AST/SGOT) 30 U/L (15-37) Alanine Aminotransferase (ALT/SGPT) 64 U/L (12-78) Alkaline Phosphatase 140 U/L (46-116) H Troponin I 0.003 ng/mL (0.000-0.056) Pro-B-Type Natriuretic Peptide 541 pg/mL (0-125) H Total Protein 7.9 G/DL (6.4-8.2) Albumin 2.0 G/DL (3.4-5.0) L Globulin 5.9 g/dL Albumin/Globulin Ratio 0.3 (1.0-2.7) L Thyroid Stimulating Hormone (TSH) 1.526 uiU/mL (0.360-3.740) Current Medications Medications (Trade) Dose Ordered Sig/Tameka Route PRN Reason Start Time Stop Time Status Last Admin Dose Admin Acetaminophen (Tylenol) 650 mg Q4H PRN ORAL FEVER 09/01/17 14:30 10/01/17 14:29 09/02/17 19:37 Albuterol/ Ipratropium (DuoNeb 0.5-3(2.5)mg/3ml) 3 ml Q4H PRN HHN Shortness of Breath 09/01/17 14:30 09/06/17 14:29 Amiodarone HCl (Cordarone) 200 mg DAILY GT 09/02/17 09:00 10/02/17 08:59 09/03/17 08:20 Aspirin (ASA) 81 mg DAILY GT 09/02/17 09:00 10/02/17 08:59 09/03/17 08:20 Clonidine HCl (Catapres) 0.1 mg Q6H PRN GT SBP > 160 09/01/17 14:30 10/01/17 14:29 Dextrose (Dextrose 50%) STAT PRN IV Hypoglycemia 09/01/17 14:30 10/01/17 14:29 Heparin Sodium (Porcine) (Heparin 5000 units/ml) 5,000 units EVERY 12 HOURS SUBQ 09/01/17 21:00 10/01/17 20:59 09/03/17 08:21 Lactulose (Cephulac) 20 gm BID GT 09/01/17 18:00 10/01/17 17:59 09/03/17 08:21 Levetiracetam (Keppra) 500 mg Q12HR GT 09/01/17 21:00 10/01/17 20:59 09/03/17 08:20 Lorazepam (Ativan 2mg/ml 1ml) 2 mg Q2H PRN IV For Anxiety 09/01/17 14:30 09/08/17 14:29 Metoprolol Tartrate (Lopressor) 12.5 mg Q12HR ORAL 09/03/17 21:00 10/03/17 20:59 Morphine Sulfate (Morphine Sulfate) 4 mg Q4H PRN IVP Severe Pain (Pain Scale 7-10) 09/01/17 14:30 09/08/17 14:29 09/02/17 23:28 Ondansetron HCl (Zofran) 4 mg Q6H PRN IVP Nausea & Vomiting 09/01/17 14:30 10/01/17 14:29 Pantoprazole (Protonix) 40 mg DAILY IV 09/02/17 09:00 10/02/17 08:59 09/03/17 08:22 Piperacillin Sod/ Tazobactam Sod 3.375 gm/Sodium Chloride 110 ml @ 27.5 mls/hr Q8H IVPB 09/01/17 16:00 09/08/17 15:59 09/03/17 15:48 Polyethylene Glycol (Miralax) 17 gm DAILYPRN PRN GT Constipation 09/01/17 14:30 10/01/17 14:29 Vancomycin HCl (Vanco rx to dose) 1 ea DAILY PRN MISC PER RX PROTOCOL 09/02/17 14:30 10/02/17 14:29 Vancomycin/Sodium Chloride 250 ml @ 166.667 mls/hr DAILY@1999 IVPB 09/01/17 20:00 09/06/17 19:59 09/02/17 19:54 ROXANNE BELLO Sep 03, 2017 20:08
[2017-09-03 20:22] VITALS: BP 101/63
[2017-09-03] MEDS: Metoprolol Tartrate 12.5mg TAB ORAL SCH (20:31)
--- NOTE | 2017-09-03 21:37 | Consultation ---
Consult Note Consult Note Cardiac EP Full consult dictated # [id number] Pt s/p dual chamber ICD, [employer] in 04/2016, ? indication (possible resuscitated cardiac arrest) His device is functioning normally. He has had one episode of sustained VT , detected in VF zone, at 230 bpm. This was appropriately detected and terminated with rapid antitachycardia pacing from the device. Device check shows normal pacing and sensing. Generator is at beginning of service. Rec: continue amiodarone and b blockers. Maintain k, mg balance. Continue regular device followup q 3 months. WOODY BROWN Sep 03, 2017 21:37
--- NOTE | 2017-09-03 23:31 | Diagnostic Imaging Report ---
APPROVED REPORT CPT Code: 04921 Present Symptoms Shortness of breath Comments Technically difficult study due to BLE contracture of hip and knee. BILATERAL: Imaging reveals a patent deep venous system bilaterally. There is no evidence of thrombus within the femoral, popliteal or tibial segments. The greater saphenous veins are also within normal limits. Doppler indicates normal spontaneous flow within these segments.
[2017-09-04] VITALS: BP 110/71
[2017-09-04] MEDS: Morphine Sulfate 4mg/ml Inj IVP PRN (03:44)
[2017-09-04 04:00] VITALS: BP 119/81
--- NOTE | 2017-09-04 05:30 | Consultation ---
DATE OF CONSULTATION: 09/03/2017 CARDIAC ELECTROPHYSIOLOGY CONSULTATION CONSULTING PHYSICIAN: Rachel Bean M.D REQUESTING PHYSICIAN: Andrés Casey M.D. REASON FOR CONSULT: Evaluation of patient with ICD shock. HISTORY OF PRESENT ILLNESS: History is obtained from the patient's chart and treating providers as the patient is unable to give any history due to anoxic encephalopathy. He is a 57-year-old man with a history of chronic respiratory failure, status post tracheostomy, status post G-tube placement, history of anoxic encephalopathy, heart failure with EF 30% and status post ICD placement (uncertain indication, possibly post resuscitated cardiac arrest. He was brought to the emergency room after having an abnormal ICD interrogation and electrophysiology evaluation was requested. PAST MEDICAL HISTORY: As noted above. MEDICATIONS: Amiodarone 200 mg daily, aspirin 81 mg daily, metoprolol 12.5 mg q.12 hours, Protonix 40 mg IV daily, Keppra 500 mg q.12 hours, subcutaneous heparin 5000 units q.12 hours, Zosyn 3.375 g IV q.8 h., clonidine p.r.n., DuoNeb p.r.n., Tylenol p.r.n., and morphine p.r.n. ALLERGIES: No known drug allergies. SOCIAL HISTORY: The patient is a convalescent resident dependent for all ADLs. PHYSICAL EXAMINATION: GENERAL: Alert and chronically ill appearing male, who is able to nod or shake head appropriately to questions and mild words. VITAL SIGNS: Blood pressure 101/63, pulse 110 regular, and respiration 23. Afebrile HEENT: Normocephalic and atraumatic. Pupils are equal, round, and reactive to light. NECK: Supple. There is a tracheostomy site clean. LUNGS: Scattered rhonchi bilaterally. HEART: Tachycardic. Regular S1, S2 with no murmur or S3. ABDOMEN: Positive G-tube. Positive bowel sounds. Nondistended. EXTREMITIES: Flexion contractures of the upper and lower extremities bilaterally. LABORATORY DATA: Sodium 140, potassium 4.1, chloride 106, bicarb 27, BUN 28, and creatinine 0.8. Troponin 0.03. TSH 1.5. Hemoglobin 9.4, white blood count 27706, and platelets 430,000. EKG is not available in chart. Echo from today is reported to show an EF of 50%, but was a technically difficult study. ICD interrogation of the device is a [employer] VR implanted and on 05/03/2016, pacing thresholds are 0.5 volts at 0.5 milliseconds in the atrium and ventricle. Sensing is greater than 5 millivolts in the atrium, 11.4 millivolts in the ventricle. Lead impedances are normal of 450 ohms in the atrium, 510 ohms in the ventricle and 55 ohms for the high voltage lead. Atrial and ventricular pacing are occurring less than 1%. The patient has had an episode of nonsustained atrial tachycardia lasting for less than 10 seconds on 06/25/2017 at 4:22 a.m. He had an episode of rapid ventricular tachycardia on 06/10/2017 at 7:36 a.m. The tachycardia rate was 230 beats per minute and antitachycardia pacing during charging successfully terminated the arrhythmia. There have been no other detections or therapies for ventricular tachy arrhythmias since that time. For sustained ventricular tachyarrhythmia, there have been four episodes of nonsustained ventricular tachycardia. ASSESSMENT AND RECOMMENDATIONS: The patient is an unfortunate 57-year-old man with anoxic encephalopathy, chronic ventilator dependence and status post G-tube who was admitted after having an ICD interrogation which showed an ICD therapy for sustained ventricular tachycardia. This was appropriate device function. He also has had nonsustained events. Duration unknown as these are not recorded completely in the device. The device function is normal. I would favor continuing his current medication including amiodarone and beta-blockers. Would maintain electrolyte balance. Potassium about 4 and magnesium at about 2. Further recommendations will be made based on his clinical course. Thank you for allowing me to see him in electrophysiology evaluation. Rachel Wallace M.D. DR: ROLLY JOB#: [id number] CC:
[2017-09-04 08:00] VITALS: BP 146/63
[2017-09-04] MEDS: Piperacillin/Tazobactam 3.375 GM in NS 110 ML IVPB SCH ×3 (08:23→23:43)
[2017-09-04] MEDS: levETIRAcetam 500mg/5ml Liquid GT SCH ×2 (08:24→21:43)
[2017-09-04] MEDS: Metoprolol Tartrate 12.5mg TAB ORAL SCH ×2 (08:24→21:00)
[2017-09-04] MEDS: Amiodarone 200mg tab GT SCH (08:24)
[2017-09-04] MEDS: Lactulose 20gm/30ml UDC GT SCH ×2 (08:25→18:11)
[2017-09-04] MEDS: Aspirin Baby 81mg GT SCH (08:25)
[2017-09-04] MEDS: Heparin 5000 units/ml inj SUBQ SCH ×2 (08:25→21:45)
[2017-09-04] MEDS: Pantoprazole Inj IV SCH (08:28)
[2017-09-04 10:01] LABS: BASOPHILS % (AUTO) 0.6 % (0.0-2.0); EOSINOPHILS % (AUTO) 0.8 % (0.0-3.0); LYMPHOCYTES % (AUTO) 11.9 % (20.0-45.0); MEAN CORPUSCULAR HEMOGLOBIN 29.4 PG (27.0-31.0); MEAN CORPUSCULAR VOLUME 95 FL (80-99); MEAN PLATELET VOLUME 5.4 FL (6.5-10.1); MONOCYTES % (AUTO) 9.5 % (1.0-10.0); NEUTROPHILS % (AUTO) 77.3 % (45.0-75.0); PLATELET COUNT 517 K/UL (150-450); RED BLOOD COUNT 3.41 M/UL (4.70-6.10); RED CELL DISTRIBUTION WIDTH 14.9 % (11.6-14.8); WHITE BLOOD COUNT 14.3 K/UL (4.8-10.8)
[2017-09-04 10:19] LABS: INR 1.1 (0.9-1.1); PROTHROMBIN TIME 11.4 SEC (9.30-11.50)
[2017-09-04 10:28] LABS: ALANINE AMINOTRANSFERASE 50 U/L (12-78); ALBUMIN/GLOBULIN RATIO 0.4 (1.0-2.7); ANION GAP 8 mmol/L (5-15); ASPARTATE AMINO TRANSFERASE 24 U/L (15-37); CALCIUM 10.1 MG/DL (8.5-10.1); CARBON DIOXIDE 29 MMOL/L (21-32); CHLORIDE 111 MMOL/L (98-107); CREATININE 0.9 MG/DL (0.55-1.30); GLOMERULAR FILTRATION RATE > 60 mL/min (>60); PHOSPHORUS 3.1 MG/DL (2.5-4.9); POTASSIUM 3.9 MMOL/L (3.5-5.1); SODIUM 147 MMOL/L (136-145)
[2017-09-04 11:52] LABS: OTHERS PATHOLOGIST COMMENT
--- NOTE | 2017-09-04 11:53 | Pulmonolgy Critical Care Note ---
Critical Care - Asmt/Plan Problems: (1) Sepsis (2) Chronic respiratory acidosis (3) Anemia (4) Atrial fibrillation (5) EF of 30 (6) Feeding by G-tube Respiratory: monitor respiratory rate, adjust FIO2 Cardiac: continue to monitor HR/BP Renal: F/U I&O Infectious Disease: check cultures, continue antibiotics Gastrointestinal: continue feedings/current rate Endocrine: monitor blood sugar, check HgA1C Neurologic: PRN Ativan Affect: PRN ativan Prophylaxis: Heparin Notes Reviewed: rough rice tender Discussed with: nurses, consultants Critical Care - Objective Last 24 Hour Vital Signs Date Time Temp Pulse Resp B/P (MAP) Pulse Ox O2 Delivery O2 Flow Rate FiO2 09/04/17 11:22 94 18 35 09/04/17 08:55 101 19 35 09/04/17 08:24 117 146/63 09/04/17 08:00 99.8 117 30 146/63 100 Mechanical Ventilator 35 09/04/17 08:00 109 09/04/17 08:00 35 09/04/17 07:35 110 18 35 09/04/17 05:10 112 22 35 09/04/17 04:14 98.2 09/04/17 04:00 35 09/04/17 04:00 98.0 122 27 119/81 100 Mechanical Ventilator 35 09/04/17 04:00 120 09/04/17 03:08 119 22 35 09/04/17 00:45 118 22 35 09/04/17 00:00 98.2 110 31 110/71 99 Mechanical Ventilator 35 09/03/17 23:48 114 09/03/17 23:22 114 22 35 09/03/17 21:15 111 23 35 09/03/17 20:31 101/63 09/03/17 20:22 98.2 112 24 101/63 100 Mechanical Ventilator 35 09/03/17 20:00 35 09/03/17 19:24 110 09/03/17 19:05 110 23 35 09/03/17 16:45 115 09/03/17 16:38 108 22 35 09/03/17 16:00 98.5 133 38 102/65 100 Mechanical Ventilator 35 09/03/17 16:00 35 09/03/17 15:38 110 24 35 09/03/17 12:48 109 22 35 09/03/17 12:42 118 09/03/17 12:08 99.5 122 28 104/71 100 Mechanical Ventilator 35 09/03/17 12:00 35 Status: awake Condition: grave Neck: full ROM Lungs: chest wall tender Heart: HR/BP stable, HR/BP unstable Abdomen: non-tender, active bowel sounds Extremities: edema Micro: Microbiology Date/Time Source Procedure Growth Status 09/01/17 11:57 Blood Blood Culture - Preliminary Resulted 09/01/17 14:25 Nasal Nares MRSA Culture - Final NO METHICILLIN RESISTANT STAPH AUREUS... Complete 09/02/17 05:00 Sacral Wound Gram Stain - Final Resulted 09/02/17 05:00 Wound Culture - Preliminary Staphylococcus Aureus Diphtheroids Resulted Accucheck: 98 Critical Care - Subjective ROS Limited/Unobtainable: Yes Condition: critical EKG Rhythm: Sinus Bradycardia FI02: 35 Vent Support Breath Rate: 8 Vent Support Mode: IMV/SIMV Vent Tidal Volume: 600 Sputum Amount: Scant PEEP: 5.0 PIP: 14 Tube Feeding Amount: 30 CXR: no change Labs: Laboratory Tests Test 09/04/17 09:00 White Blood Count 14.3 K/UL (4.8-10.8) H Red Blood Count 3.41 M/UL (4.70-6.10) L Hemoglobin 10.0 G/DL (14.2-18.0) L Hematocrit 32.4 % (42.0-52.0) L Mean Corpuscular Volume 95 FL (80-99) Mean Corpuscular Hemoglobin 29.4 PG (27.0-31.0) Mean Corpuscular Hemoglobin Concent 31.0 G/DL (32.0-36.0) L Red Cell Distribution Width 14.9 % (11.6-14.8) H Platelet Count 517 K/UL (150-450) H Mean Platelet Volume 5.4 FL (6.5-10.1) L Neutrophils (%) (Auto) 77.3 % (45.0-75.0) H Lymphocytes (%) (Auto) 11.9 % (20.0-45.0) L Monocytes (%) (Auto) 9.5 % (1.0-10.0) Eosinophils (%) (Auto) 0.8 % (0.0-3.0) Basophils (%) (Auto) 0.6 % (0.0-2.0) Prothrombin Time 11.4 SEC (9.30-11.50) Prothromb Time International Ratio 1.1 (0.9-1.1) Activated Partial Thromboplast Time 28 SEC (23-33) Sodium Level 147 MMOL/L (136-145) H Potassium Level 3.9 MMOL/L (3.5-5.1) Chloride Level 111 MMOL/L (98-107) H Carbon Dioxide Level 29 MMOL/L (21-32) Anion Gap 8 mmol/L (5-15) Blood Urea Nitrogen 24 mg/dL (7-18) H Creatinine 0.9 MG/DL (0.55-1.30) Estimat Glomerular Filtration Rate > 60 mL/min (>60) Glucose Level 140 MG/DL (74-106) H Calcium Level 10.1 MG/DL (8.5-10.1) Phosphorus Level 3.1 MG/DL (2.5-4.9) Magnesium Level 2.0 MG/DL (1.8-2.4) Total Bilirubin 0.1 MG/DL (0.2-1.0) L Aspartate Amino Transf (AST/SGOT) 24 U/L (15-37) Alanine Aminotransferase (ALT/SGPT) 50 U/L (12-78) Alkaline Phosphatase 137 U/L (46-116) H Total Protein 8.0 G/DL (6.4-8.2) Albumin 2.1 G/DL (3.4-5.0) L Globulin 5.9 g/dL Albumin/Globulin Ratio 0.4 (1.0-2.7) L ODETTE SMILEY Sep 04, 2017 11:53
[2017-09-04 12:00] VITALS: BP 115/76
--- NOTE | 2017-09-04 12:39 | Diagnostic Imaging Report ---
Indication: Dyspnea Comparison: 09/01/17 A single view chest radiograph was obtained. Findings: Colostomy noted. Heart size is normal. Lungs are clear. There is a pacemaker on the left. Bones are unremarkable. Impression: No acute disease
[2017-09-04 16:00] VITALS: BP 118/72
--- NOTE | 2017-09-04 18:36 | Cardiology Progress Note ---
Assessment/Plan Assessment/Plan vent arrhythmia aborted with ATP in may 2017 cardiomyopathy chronic vent therapy chronic g tube dependence anoxic encephalopathy episode ntoed in may so far neg no recent event s will need to be on bb and amio ep input appreciated normal functioning of icd ok to return to snf lfts normal tsh normal Subjective ROS Limited/Unobtainable: Yes Objective Last 24 Hour Vital Signs Date Time Temp Pulse Resp B/P (MAP) Pulse Ox O2 Delivery O2 Flow Rate FiO2 09/04/17 17:09 97 21 35 09/04/17 16:00 99.0 90 18 118/72 100 Mechanical Ventilator 35 09/04/17 16:00 35 09/04/17 16:00 100 09/04/17 15:04 103 24 35 09/04/17 12:37 93 18 35 09/04/17 12:22 95 09/04/17 12:00 35 09/04/17 12:00 98.2 94 20 115/76 100 Mechanical Ventilator 35 09/04/17 11:22 94 18 35 09/04/17 08:55 101 19 35 09/04/17 08:24 117 146/63 09/04/17 08:00 99.8 117 30 146/63 100 Mechanical Ventilator 35 09/04/17 08:00 109 09/04/17 08:00 35 09/04/17 07:35 110 18 35 09/04/17 05:10 112 22 35 09/04/17 04:14 98.2 09/04/17 04:00 35 09/04/17 04:00 98.0 122 27 119/81 100 Mechanical Ventilator 35 09/04/17 04:00 120 09/04/17 03:08 119 22 35 09/04/17 00:45 118 22 35 09/04/17 00:00 98.2 110 31 110/71 99 Mechanical Ventilator 35 09/03/17 23:48 114 09/03/17 23:22 114 22 35 09/03/17 21:15 111 23 35 09/03/17 20:31 101/63 09/03/17 20:22 98.2 112 24 101/63 100 Mechanical Ventilator 35 09/03/17 20:00 35 09/03/17 19:24 110 09/03/17 19:05 110 23 35 General Appearance: no apparent distress, on vent, patient on isolation Cardiovascular: normal rate Respiratory/Chest: rhonchi - bilaterally Abdomen: normal bowel sounds, non tender, soft Extremities: no swelling Intake and Output 09/04/17 09/05/17 19:00 07:00 Intake Total 740.0 ml Balance 740.0 ml Free Water 300 ml IV Total 110.0 ml Tube Feeding 330 ml # Voids 3 Laboratory Tests Test 09/04/17 09:00 White Blood Count 14.3 K/UL (4.8-10.8) H Red Blood Count 3.41 M/UL (4.70-6.10) L Hemoglobin 10.0 G/DL (14.2-18.0) L Hematocrit 32.4 % (42.0-52.0) L Mean Corpuscular Volume 95 FL (80-99) Mean Corpuscular Hemoglobin 29.4 PG (27.0-31.0) Mean Corpuscular Hemoglobin Concent 31.0 G/DL (32.0-36.0) L Red Cell Distribution Width 14.9 % (11.6-14.8) H Platelet Count 517 K/UL (150-450) H Mean Platelet Volume 5.4 FL (6.5-10.1) L Neutrophils (%) (Auto) 77.3 % (45.0-75.0) H Lymphocytes (%) (Auto) 11.9 % (20.0-45.0) L Monocytes (%) (Auto) 9.5 % (1.0-10.0) Eosinophils (%) (Auto) 0.8 % (0.0-3.0) Basophils (%) (Auto) 0.6 % (0.0-2.0) Prothrombin Time 11.4 SEC (9.30-11.50) Prothromb Time International Ratio 1.1 (0.9-1.1) Activated Partial Thromboplast Time 28 SEC (23-33) Sodium Level 147 MMOL/L (136-145) H Potassium Level 3.9 MMOL/L (3.5-5.1) Chloride Level 111 MMOL/L (98-107) H Carbon Dioxide Level 29 MMOL/L (21-32) Anion Gap 8 mmol/L (5-15) Blood Urea Nitrogen 24 mg/dL (7-18) H Creatinine 0.9 MG/DL (0.55-1.30) Estimat Glomerular Filtration Rate > 60 mL/min (>60) Glucose Level 140 MG/DL (74-106) H Calcium Level 10.1 MG/DL (8.5-10.1) Phosphorus Level 3.1 MG/DL (2.5-4.9) Magnesium Level 2.0 MG/DL (1.8-2.4) Total Bilirubin 0.1 MG/DL (0.2-1.0) L Aspartate Amino Transf (AST/SGOT) 24 U/L (15-37) Alanine Aminotransferase (ALT/SGPT) 50 U/L (12-78) Alkaline Phosphatase 137 U/L (46-116) H Total Protein 8.0 G/DL (6.4-8.2) Albumin 2.1 G/DL (3.4-5.0) L Globulin 5.9 g/dL Albumin/Globulin Ratio 0.4 (1.0-2.7) L Microbiology Date/Time Source Procedure Growth Status 09/02/17 05:00 Sacral Wound Gram Stain - Final Resulted 09/02/17 05:00 Wound Culture - Preliminary Staphylococcus Aureus Diphtheroids Resulted CELI FALCON Sep 04, 2017 18:36
--- NOTE | 2017-09-04 19:44 | Infectious Diseases Prog Note ---
Assessment/Plan Assessment/Plan Assessment: // GPR bacteremia 11/20, m/l contaminant - C&S pending //Tachycardia>Arrhythmia- r/o infectious process- so far none identified; r/o bacteremia -afebrile -Bcx NGTD -CXR no acute disease -u/a neg //Leukocytosis, mild- recurrent // Recent HCAP / VAP SP - SCx 08/13 : +4 MDR A. baumani (S. Colistin, Polymxin B ) and +4 MDR PsA (S. Cefepime, Gentamicn/Amkikacin); s/p Rx Vanco, Zosyn, INH colistin r/o recurrence - CXR 09/01: Lungs and pleural spaces are clear - h/o MDR-ACB, KPC, Providencia, XDR Pseudomonas // Chronic sacrococcygeal osteomyelitis - surveillance WCx MSSA, diptheroids - previous evaluation by surgery deemed not a surgical candidate - CT with contrast--some sacral/coccygeal erosion, but no abscess. no profound progression. - h/o MDR ACB, C albicans, and KPC (sensitive only to colistin) // Multiple decubiti POA, not grossly infected // h/o Coag neg staph RUE PICC associated bacteremia // h/o MDR Klebsiella and zosyn resistant Pseudomonas asymptomatic bacteriuria // HCV Ab+, no transaminitis currently // Negative HIV Chronic VDRF SP trach, PEG Chronic anoxic encephalopathy SP cardiac arrest Elevated ESR - worse Reactive thrombocytosis Cachexia with elevated CEA, normal PSA Acute on chronic anemia Sinus tachycardia Chronic systolic CHF, EF 30% SP AICD Paroxysmal Afib [facility] resident MDRO colonized NKDA Full code Plan: -continue Zosyn d# 4 ( 09/03 SP IV vancomycin d# 3 ) -f/u cx -Monitor CBC/BMP, temperatures -monitor CXR -peg/trach care -aspiration precautions. Subjective Allergies: Coded Allergies: No Known Allergies (Unverified , 03/07/17) Subjective remains afebrile recurrent leukocytosis BCx GPR 11/20 Objective Vital Signs Last 24 Hour Vital Signs Date Time Temp Pulse Resp B/P (MAP) Pulse Ox O2 Delivery O2 Flow Rate FiO2 09/04/17 19:08 96 20 35 09/04/17 17:09 97 21 35 09/04/17 16:00 99.0 90 18 118/72 100 Mechanical Ventilator 35 09/04/17 16:00 35 09/04/17 16:00 100 09/04/17 15:04 103 24 35 09/04/17 12:37 93 18 35 09/04/17 12:22 95 09/04/17 12:00 35 09/04/17 12:00 98.2 94 20 115/76 100 Mechanical Ventilator 35 09/04/17 11:22 94 18 35 09/04/17 08:55 101 19 35 09/04/17 08:24 117 146/63 09/04/17 08:00 99.8 117 30 146/63 100 Mechanical Ventilator 35 09/04/17 08:00 109 09/04/17 08:00 35 09/04/17 07:35 110 18 35 09/04/17 05:10 112 22 35 09/04/17 04:14 98.2 09/04/17 04:00 35 09/04/17 04:00 98.0 122 27 119/81 100 Mechanical Ventilator 35 09/04/17 04:00 120 09/04/17 03:08 119 22 35 09/04/17 00:45 118 22 35 09/04/17 00:00 98.2 110 31 110/71 99 Mechanical Ventilator 35 09/03/17 23:48 114 09/03/17 23:22 114 22 35 09/03/17 21:15 111 23 35 09/03/17 20:31 101/63 09/03/17 20:22 98.2 112 24 101/63 100 Mechanical Ventilator 35 09/03/17 20:00 35 Height (Feet): 5 Height (Inches): 7.00 Weight (Pounds): 158 General Appearance: no acute distress Respiratory/Chest: no respiratory distress Cardiovascular: normal rate, regular rhythm Abdomen: normal bowel sounds, soft, non tender, non distended Microbiology Date/Time Source Procedure Growth Status 09/02/17 05:00 Sacral Wound Gram Stain - Final Resulted 09/02/17 05:00 Wound Culture - Preliminary Staphylococcus Aureus Diphtheroids Resulted Laboratory Tests Test 09/04/17 09:00 White Blood Count 14.3 K/UL (4.8-10.8) H Red Blood Count 3.41 M/UL (4.70-6.10) L Hemoglobin 10.0 G/DL (14.2-18.0) L Hematocrit 32.4 % (42.0-52.0) L Mean Corpuscular Volume 95 FL (80-99) Mean Corpuscular Hemoglobin 29.4 PG (27.0-31.0) Mean Corpuscular Hemoglobin Concent 31.0 G/DL (32.0-36.0) L Red Cell Distribution Width 14.9 % (11.6-14.8) H Platelet Count 517 K/UL (150-450) H Mean Platelet Volume 5.4 FL (6.5-10.1) L Neutrophils (%) (Auto) 77.3 % (45.0-75.0) H Lymphocytes (%) (Auto) 11.9 % (20.0-45.0) L Monocytes (%) (Auto) 9.5 % (1.0-10.0) Eosinophils (%) (Auto) 0.8 % (0.0-3.0) Basophils (%) (Auto) 0.6 % (0.0-2.0) Prothrombin Time 11.4 SEC (9.30-11.50) Prothromb Time International Ratio 1.1 (0.9-1.1) Activated Partial Thromboplast Time 28 SEC (23-33) Sodium Level 147 MMOL/L (136-145) H Potassium Level 3.9 MMOL/L (3.5-5.1) Chloride Level 111 MMOL/L (98-107) H Carbon Dioxide Level 29 MMOL/L (21-32) Anion Gap 8 mmol/L (5-15) Blood Urea Nitrogen 24 mg/dL (7-18) H Creatinine 0.9 MG/DL (0.55-1.30) Estimat Glomerular Filtration Rate > 60 mL/min (>60) Glucose Level 140 MG/DL (74-106) H Calcium Level 10.1 MG/DL (8.5-10.1) Phosphorus Level 3.1 MG/DL (2.5-4.9) Magnesium Level 2.0 MG/DL (1.8-2.4) Total Bilirubin 0.1 MG/DL (0.2-1.0) L Aspartate Amino Transf (AST/SGOT) 24 U/L (15-37) Alanine Aminotransferase (ALT/SGPT) 50 U/L (12-78) Alkaline Phosphatase 137 U/L (46-116) H Total Protein 8.0 G/DL (6.4-8.2) Albumin 2.1 G/DL (3.4-5.0) L Globulin 5.9 g/dL Albumin/Globulin Ratio 0.4 (1.0-2.7) L Current Medications Medications (Trade) Dose Ordered Sig/Tameka Route PRN Reason Start Time Stop Time Status Last Admin Dose Admin Acetaminophen (Tylenol) 650 mg Q4H PRN ORAL FEVER 09/01/17 14:30 10/01/17 14:29 09/02/17 19:37 Albuterol/ Ipratropium (DuoNeb 0.5-3(2.5)mg/3ml) 3 ml Q4H PRN HHN Shortness of Breath 09/01/17 14:30 09/06/17 14:29 Amiodarone HCl (Cordarone) 200 mg DAILY GT 09/02/17 09:00 10/02/17 08:59 09/04/17 08:24 Aspirin (ASA) 81 mg DAILY GT 09/02/17 09:00 10/02/17 08:59 09/04/17 08:25 Clonidine HCl (Catapres) 0.1 mg Q6H PRN GT SBP > 160 09/01/17 14:30 10/01/17 14:29 Dextrose (Dextrose 50%) STAT PRN IV Hypoglycemia 09/01/17 14:30 10/01/17 14:29 Heparin Sodium (Porcine) (Heparin 5000 units/ml) 5,000 units EVERY 12 HOURS SUBQ 09/01/17 21:00 10/01/17 20:59 09/04/17 08:25 Lactulose (Cephulac) 20 gm BID GT 09/01/17 18:00 10/01/17 17:59 09/04/17 18:11 Levetiracetam (Keppra) 500 mg Q12HR GT 09/01/17 21:00 10/01/17 20:59 09/04/17 08:24 Lorazepam (Ativan 2mg/ml 1ml) 2 mg Q2H PRN IV For Anxiety 09/01/17 14:30 09/08/17 14:29 Metoprolol Tartrate (Lopressor) 12.5 mg Q12HR ORAL 09/03/17 21:00 10/03/17 20:59 09/04/17 08:24 Morphine Sulfate (Morphine Sulfate) 4 mg Q4H PRN IVP Severe Pain (Pain Scale 7-10) 09/01/17 14:30 09/08/17 14:29 09/04/17 03:44 Ondansetron HCl (Zofran) 4 mg Q6H PRN IVP Nausea & Vomiting 09/01/17 14:30 10/01/17 14:29 Pantoprazole (Protonix) 40 mg DAILY IV 09/02/17 09:00 10/02/17 08:59 09/04/17 08:28 Piperacillin Sod/ Tazobactam Sod 3.375 gm/Sodium Chloride 110 ml @ 27.5 mls/hr Q8H IVPB 09/01/17 16:00 09/08/17 15:59 09/04/17 16:55 Polyethylene Glycol (Miralax) 17 gm DAILYPRN PRN GT Constipation 09/01/17 14:30 10/01/17 14:29 ROXANNE BELLO Sep 04, 2017 19:44
[2017-09-04 20:02] VITALS: BP 100/60
[2017-09-05] VITALS: BP 103/60
[2017-09-05 04:00] VITALS: BP 105/60
[2017-09-05 05:29] LABS: MEAN CORPUSCULAR HEMOGLOBIN 30.4 PG (27.0-31.0); MEAN CORPUSCULAR HGB CONC 32.1 G/DL (32.0-36.0); MEAN CORPUSCULAR VOLUME 95 FL (80-99); MEAN PLATELET VOLUME 5.2 FL (6.5-10.1); PLATELET COUNT 481 K/UL (150-450); RED BLOOD COUNT 3.11 M/UL (4.70-6.10); RED CELL DISTRIBUTION WIDTH 15.2 % (11.6-14.8); WHITE BLOOD COUNT 19.3 K/UL (4.8-10.8)
[2017-09-05 05:58] LABS: ALANINE AMINOTRANSFERASE 41 U/L (12-78); ALBUMIN/GLOBULIN RATIO 0.4 (1.0-2.7); ANION GAP 8 mmol/L (5-15); ASPARTATE AMINO TRANSFERASE 18 U/L (15-37); CALCIUM 10.3 MG/DL (8.5-10.1); CARBON DIOXIDE 29 MMOL/L (21-32); CHLORIDE 112 MMOL/L (98-107); CREATININE 0.9 MG/DL (0.55-1.30); GLOMERULAR FILTRATION RATE > 60 mL/min (>60); POTASSIUM 3.8 MMOL/L (3.5-5.1); SODIUM 149 MMOL/L (136-145); TOTAL PROTEIN 7.8 G/DL (6.4-8.2)
[2017-09-05 08:00] VITALS: BP 107/68
[2017-09-05] MEDS: Piperacillin/Tazobactam 3.375 GM in NS 110 ML IVPB SCH ×2 (08:11→17:09)
[2017-09-05 08:45] LABS: ANISOCYTOSIS 1+; BAND NEUTROPHILS % (MANUAL) 0 % (0-8); BASOPHILS % (MANUAL) 0 % (0-2); EOSINOPHILS % (MANUAL) 0 % (0-3); HYPOCHROMASIA 1+; LYMPHOCYTES % (MANUAL) 9 % (20-45); NEUTROPHILS % (MANUAL) 85 % (45-75); PLATELET ESTIMATE ADEQUATE; PLATELET MORPHOLOGY NORMAL; TOTAL CELLS COUNTED 100
[2017-09-05] MEDS: Metoprolol Tartrate 12.5mg TAB ORAL SCH ×2 (09:24→21:45)
[2017-09-05] MEDS: levETIRAcetam 500mg/5ml Liquid GT SCH ×2 (09:24→21:44)
[2017-09-05] MEDS: Amiodarone 200mg tab GT SCH (09:24)
[2017-09-05] MEDS: Lactulose 20gm/30ml UDC GT SCH ×2 (09:24→17:09)
[2017-09-05] MEDS: Heparin 5000 units/ml inj SUBQ SCH ×2 (09:24→21:44)
[2017-09-05] MEDS: Aspirin Baby 81mg GT SCH (09:24)
[2017-09-05] MEDS: Pantoprazole Inj IV SCH (09:25)
--- NOTE | 2017-09-05 10:53 | Pulmonolgy Critical Care Note ---
Critical Care - Asmt/Plan Problems: (1) Sepsis (2) Chronic respiratory acidosis (3) Anemia (4) Atrial fibrillation (5) EF of 30 (6) Feeding by G-tube Respiratory: monitor respiratory rate, CXR Cardiac: continue to monitor HR/BP Renal: F/U I&O, keep IV fluid Infectious Disease: check cultures, continue antibiotics Gastrointestinal: continue feedings/current rate Endocrine: monitor blood sugar, check HgA1C, continue sliding scale insulin Hematologic: monitor H/H, transfuse if hgb<8.5 Neurologic: PRN Ativan, PRN Morphine, keep patient comfortable Affect: PRN ativan Prophylaxis: Protonix, Heparin Notes 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: 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 flour miller, renal Discussed with: nurses, consultants, case makerwater resources project manager - Objective Last 24 Hour Vital Signs Date Time Temp Pulse Resp B/P (MAP) Pulse Ox O2 Delivery O2 Flow Rate FiO2 09/05/17 10:48 80 21 35 09/05/17 09:24 94 107/68 09/05/17 09:23 96 21 35 09/05/17 08:00 35 09/05/17 08:00 99.0 94 16 107/68 100 Mechanical Ventilator 35 09/05/17 07:07 95 26 35 09/05/17 04:37 92 23 35 09/05/17 04:00 84 09/05/17 04:00 98.5 85 22 105/60 100 Mechanical Ventilator 35 09/05/17 04:00 35 09/05/17 03:21 84 20 35 09/05/17 01:17 81 18 35 09/05/17 00:00 98.9 99 22 103/60 100 Mechanical Ventilator 35 09/04/17 22:54 98.9 09/04/17 22:46 96 20 35 09/04/17 21:02 98 24 35 09/04/17 21:00 98 100/60 09/04/17 20:02 98.1 96 22 100/60 100 Mechanical Ventilator 09/04/17 20:00 35 09/04/17 20:00 100 09/04/17 19:08 96 20 35 09/04/17 17:09 97 21 35 09/04/17 16:00 99.0 90 18 118/72 100 Mechanical Ventilator 35 09/04/17 16:00 35 09/04/17 16:00 100 09/04/17 15:04 103 24 35 09/04/17 12:37 93 18 35 09/04/17 12:22 95 09/04/17 12:00 35 09/04/17 12:00 98.2 94 20 115/76 100 Mechanical Ventilator 35 09/04/17 11:22 94 18 35 Status: awake Condition: critical Lungs: clear Heart: HR/BP stable, HR/BP unstable Abdomen: soft, non-tender, feeding tube Accucheck: 98 Critical Care - Subjective ROS Limited/Unobtainable: No Condition: critical EKG Rhythm: Sinus Rhythm FI02: 35 Vent Support Breath Rate: 8 Vent Support Mode: IMV/SIMV Vent Tidal Volume: 600 Sputum Amount: Scant PEEP: 5.0 PIP: 26 Tube Feeding Amount: 30 I&O: Intake and Output 09/05/17 09/06/17 19:00 07:00 Intake Total 187.5 ml Balance 187.5 ml Free Water 50 ml IV Total 27.5 ml Tube Feeding 60 ml Other 50 ml # Bowel Movements 1 CXR: no change Labs: Laboratory Tests Test 09/05/17 04:00 White Blood Count 19.3 K/UL (4.8-10.8) H Red Blood Count 3.11 M/UL (4.70-6.10) L Hemoglobin 9.5 G/DL (14.2-18.0) L Hematocrit 29.5 % (42.0-52.0) L Mean Corpuscular Volume 95 FL (80-99) Mean Corpuscular Hemoglobin 30.4 PG (27.0-31.0) Mean Corpuscular Hemoglobin Concent 32.1 G/DL (32.0-36.0) Red Cell Distribution Width 15.2 % (11.6-14.8) H Platelet Count 481 K/UL (150-450) H Mean Platelet Volume 5.2 FL (6.5-10.1) L Neutrophils (%) (Auto) % (45.0-75.0) Lymphocytes (%) (Auto) % (20.0-45.0) Monocytes (%) (Auto) % (1.0-10.0) Eosinophils (%) (Auto) % (0.0-3.0) Basophils (%) (Auto) % (0.0-2.0) Differential Total Cells Counted 100 Neutrophils % (Manual) 85 % (45-75) H Lymphocytes % (Manual) 9 % (20-45) L Monocytes % (Manual) 6 % (1-10) Eosinophils % (Manual) 0 % (0-3) Basophils % (Manual) 0 % (0-2) Band Neutrophils 0 % (0-8) Platelet Estimate Adequate Platelet Morphology Normal Hypochromasia 1+ Anisocytosis 1+ Sodium Level 149 MMOL/L (136-145) H Potassium Level 3.8 MMOL/L (3.5-5.1) Chloride Level 112 MMOL/L (98-107) H Carbon Dioxide Level 29 MMOL/L (21-32) Anion Gap 8 mmol/L (5-15) Blood Urea Nitrogen 25 mg/dL (7-18) H Creatinine 0.9 MG/DL (0.55-1.30) Estimat Glomerular Filtration Rate > 60 mL/min (>60) Glucose Level 123 MG/DL (74-106) H Calcium Level 10.3 MG/DL (8.5-10.1) H Total Bilirubin 0.1 MG/DL (0.2-1.0) L Aspartate Amino Transf (AST/SGOT) 18 U/L (15-37) Alanine Aminotransferase (ALT/SGPT) 41 U/L (12-78) Alkaline Phosphatase 132 U/L (46-116) H Pro-B-Type Natriuretic Peptide 988 pg/mL (0-125) H Total Protein 7.8 G/DL (6.4-8.2) Albumin 2.1 G/DL (3.4-5.0) L Globulin 5.7 g/dL Albumin/Globulin Ratio 0.4 (1.0-2.7) L ODETTE SMILEY Sep 05, 2017 10:53
[2017-09-05 12:00] VITALS: BP 99/65
--- NOTE | 2017-09-05 12:44 | Diagnostic Imaging Report ---
Indication: DYSPNEA Technique: One view of the chest Comparison: 09/04/2017 Findings: Lungs and pleural spaces are clear. There is a left chest AICD. The heart size is normal. There is a tracheostomy. No significant change Impression: No acute process
--- NOTE | 2017-09-05 14:01 | Infectious Diseases Prog Note ---
Assessment/Plan Assessment/Plan Assessment: // GPR bacteremia 2/2 Probably contaminant - repeat Cx : P //Tachycardia>Arrhythmia- r/o infectious process- so far none identified; r/o bacteremia -afebrile -Bcx NGTD -CXR no acute disease -u/a neg //Leukocytosis, mild- recurrent // Recent HCAP / VAP SP - SCx 08/13 : +4 MDR A. baumani (S. Colistin, Polymxin B ) and +4 MDR PsA (S. Cefepime, Gentamicn/Amkikacin); s/p Rx Vanco, Zosyn, INH colistin r/o recurrence - CXR 09/01: Lungs and pleural spaces are clear - h/o MDR-ACB, KPC, Providencia, XDR Pseudomonas // Chronic sacrococcygeal osteomyelitis - surveillance WCx MSSA, diptheroids - previous evaluation by surgery deemed not a surgical candidate - CT with contrast--some sacral/coccygeal erosion, but no abscess. no profound progression. - h/o MDR ACB, C albicans, and KPC (sensitive only to colistin) // Multiple decubiti POA, not grossly infected // h/o Coag neg staph RUE PICC associated bacteremia // h/o MDR Klebsiella and zosyn resistant Pseudomonas asymptomatic bacteriuria // HCV Ab+, no transaminitis currently // Negative HIV Chronic VDRF SP trach, PEG Chronic anoxic encephalopathy SP cardiac arrest Elevated ESR - worse Reactive thrombocytosis Cachexia with elevated CEA, normal PSA Acute on chronic anemia Sinus tachycardia Chronic systolic CHF, EF 30% SP AICD Paroxysmal Afib Long-Term resident MDRO colonized NKDA Full code Plan: -continue Zosyn d# 4 , add IV Vanco d# 1 ( 09/03 SP IV vancomycin d# 3 ) -f repeat blood Cx -Monitor CBC/BMP, temperatures -monitor CXR -peg/trach care -aspiration precautions Subjective Constitutional: Denies: no symptoms, fever, chills, fatigue, anorexia, drenching sweats, other Allergies: Coded Allergies: No Known Allergies (Unverified , 03/07/17) Objective Vital Signs Last 24 Hour Vital Signs Date Time Temp Pulse Resp B/P (MAP) Pulse Ox O2 Delivery O2 Flow Rate FiO2 09/05/17 13:30 98 21 35 09/05/17 12:00 98.2 83 18 99/65 100 Mechanical Ventilator 35 09/05/17 10:48 80 21 35 09/05/17 09:24 94 107/68 09/05/17 09:23 96 21 35 09/05/17 08:00 35 09/05/17 08:00 99.0 94 16 107/68 100 Mechanical Ventilator 35 09/05/17 07:46 97 09/05/17 07:07 95 26 35 09/05/17 04:37 92 23 35 09/05/17 04:00 84 09/05/17 04:00 98.5 85 22 105/60 100 Mechanical Ventilator 35 09/05/17 04:00 35 09/05/17 03:21 84 20 35 09/05/17 01:17 81 18 35 09/05/17 00:00 98.9 99 22 103/60 100 Mechanical Ventilator 35 09/04/17 22:54 98.9 09/04/17 22:46 96 20 35 09/04/17 21:02 98 24 35 09/04/17 21:00 98 100/60 09/04/17 20:02 98.1 96 22 100/60 100 Mechanical Ventilator 09/04/17 20:00 35 09/04/17 20:00 100 09/04/17 19:08 96 20 35 09/04/17 17:09 97 21 35 09/04/17 16:00 99.0 90 18 118/72 100 Mechanical Ventilator 35 09/04/17 16:00 35 09/04/17 16:00 100 09/04/17 15:04 103 24 35 Height (Feet): 5 Height (Inches): 7.00 Weight (Pounds): 158 HEENT: anicteric Respiratory/Chest: normal breath sounds Cardiovascular: regular rhythm Abdomen: non distended Laboratory Tests Test 09/05/17 04:00 White Blood Count 19.3 K/UL (4.8-10.8) H Red Blood Count 3.11 M/UL (4.70-6.10) L Hemoglobin 9.5 G/DL (14.2-18.0) L Hematocrit 29.5 % (42.0-52.0) L Mean Corpuscular Volume 95 FL (80-99) Mean Corpuscular Hemoglobin 30.4 PG (27.0-31.0) Mean Corpuscular Hemoglobin Concent 32.1 G/DL (32.0-36.0) Red Cell Distribution Width 15.2 % (11.6-14.8) H Platelet Count 481 K/UL (150-450) H Mean Platelet Volume 5.2 FL (6.5-10.1) L Neutrophils (%) (Auto) % (45.0-75.0) Lymphocytes (%) (Auto) % (20.0-45.0) Monocytes (%) (Auto) % (1.0-10.0) Eosinophils (%) (Auto) % (0.0-3.0) Basophils (%) (Auto) % (0.0-2.0) Differential Total Cells Counted 100 Neutrophils % (Manual) 85 % (45-75) H Lymphocytes % (Manual) 9 % (20-45) L Monocytes % (Manual) 6 % (1-10) Eosinophils % (Manual) 0 % (0-3) Basophils % (Manual) 0 % (0-2) Band Neutrophils 0 % (0-8) Platelet Estimate Adequate Platelet Morphology Normal Hypochromasia 1+ Anisocytosis 1+ Sodium Level 149 MMOL/L (136-145) H Potassium Level 3.8 MMOL/L (3.5-5.1) Chloride Level 112 MMOL/L (98-107) H Carbon Dioxide Level 29 MMOL/L (21-32) Anion Gap 8 mmol/L (5-15) Blood Urea Nitrogen 25 mg/dL (7-18) H Creatinine 0.9 MG/DL (0.55-1.30) Estimat Glomerular Filtration Rate > 60 mL/min (>60) Glucose Level 123 MG/DL (74-106) H Calcium Level 10.3 MG/DL (8.5-10.1) H Total Bilirubin 0.1 MG/DL (0.2-1.0) L Aspartate Amino Transf (AST/SGOT) 18 U/L (15-37) Alanine Aminotransferase (ALT/SGPT) 41 U/L (12-78) Alkaline Phosphatase 132 U/L (46-116) H Pro-B-Type Natriuretic Peptide 988 pg/mL (0-125) H Total Protein 7.8 G/DL (6.4-8.2) Albumin 2.1 G/DL (3.4-5.0) L Globulin 5.7 g/dL Albumin/Globulin Ratio 0.4 (1.0-2.7) L Current Medications Medications (Trade) Dose Ordered Sig/Tameka Route PRN Reason Start Time Stop Time Status Last Admin Dose Admin Acetaminophen (Tylenol) 650 mg Q4H PRN ORAL FEVER 09/01/17 14:30 10/01/17 14:29 09/04/17 21:55 Albuterol/ Ipratropium (DuoNeb 0.5-3(2.5)mg/3ml) 3 ml Q4H PRN HHN Shortness of Breath 09/01/17 14:30 09/06/17 14:29 Amiodarone HCl (Cordarone) 200 mg DAILY GT 09/02/17 09:00 10/02/17 08:59 09/05/17 09:24 Aspirin (ASA) 81 mg DAILY GT 09/02/17 09:00 10/02/17 08:59 09/05/17 09:24 Clonidine HCl (Catapres) 0.1 mg Q6H PRN GT SBP > 160 09/01/17 14:30 10/01/17 14:29 Dextrose (Dextrose 50%) STAT PRN IV Hypoglycemia 09/01/17 14:30 10/01/17 14:29 Heparin Sodium (Porcine) (Heparin 5000 units/ml) 5,000 units EVERY 12 HOURS SUBQ 09/01/17 21:00 10/01/17 20:59 09/05/17 09:24 Lactulose (Cephulac) 20 gm BID GT 09/01/17 18:00 10/01/17 17:59 09/05/17 09:24 Levetiracetam (Keppra) 500 mg Q12HR GT 09/01/17 21:00 10/01/17 20:59 09/05/17 09:24 Lorazepam (Ativan 2mg/ml 1ml) 2 mg Q2H PRN IV For Anxiety 09/01/17 14:30 09/08/17 14:29 Metoprolol Tartrate (Lopressor) 12.5 mg Q12HR ORAL 09/03/17 21:00 10/03/17 20:59 09/05/17 09:24 Morphine Sulfate (Morphine Sulfate) 4 mg Q4H PRN IVP Severe Pain (Pain Scale 7-10) 09/01/17 14:30 09/08/17 14:29 09/04/17 03:44 Ondansetron HCl (Zofran) 4 mg Q6H PRN IVP Nausea & Vomiting 09/01/17 14:30 10/01/17 14:29 Pantoprazole (Protonix) 40 mg DAILY IV 09/02/17 09:00 10/02/17 08:59 09/05/17 09:25 Piperacillin Sod/ Tazobactam Sod 3.375 gm/Sodium Chloride 110 ml @ 27.5 mls/hr Q8H IVPB 09/01/17 16:00 09/05/17 17:00 09/05/17 08:11 Piperacillin/ Tazobactam/ Dextrose 50 ml @ 12.5 mls/hr Q8H IVPB 09/06/17 00:00 09/08/17 15:59 Polyethylene Glycol (Miralax) 17 gm DAILYPRN PRN GT Constipation 09/01/17 14:30 10/01/17 14:29 MARCUS PA M.D. Sep 05, 2017 14:00
[2017-09-05] MEDS: Vancomycin 750mg/NS 250ml IVPB SCH (15:50)
[2017-09-05 16:00] VITALS: BP 112/68
[2017-09-05 20:01] VITALS: BP 103/58
[2017-09-05] MEDS: Zosyn 3.375gm/50ml Premix 50 ML IVPB SCH (23:58)
[2017-09-06] VITALS (7 sets, daily range): BP systolic 92–125; BP diastolic 58–79
[2017-09-06 05:35] LABS: MEAN CORPUSCULAR HEMOGLOBIN 30.2 PG (27.0-31.0); MEAN CORPUSCULAR HGB CONC 31.8 G/DL (32.0-36.0); MEAN CORPUSCULAR VOLUME 95 FL (80-99); MEAN PLATELET VOLUME 5.5 FL (6.5-10.1); PLATELET COUNT 469 K/UL (150-450); RED BLOOD COUNT 3.31 M/UL (4.70-6.10); RED CELL DISTRIBUTION WIDTH 15.4 % (11.6-14.8); WHITE BLOOD COUNT 19.5 K/UL (4.8-10.8)
[2017-09-06 05:50] LABS: ALANINE AMINOTRANSFERASE 37 U/L (12-78); ALBUMIN/GLOBULIN RATIO 0.3 (1.0-2.7); ANION GAP 9 mmol/L (5-15); ASPARTATE AMINO TRANSFERASE 19 U/L (15-37); CARBON DIOXIDE 28 MMOL/L (21-32); CHLORIDE 115 MMOL/L (98-107); CREATININE 0.9 MG/DL (0.55-1.30); GLOMERULAR FILTRATION RATE > 60 mL/min (>60); MAGNESIUM 1.8 MG/DL (1.8-2.4); PHOSPHORUS 2.6 MG/DL (2.5-4.9); POTASSIUM 3.3 MMOL/L (3.5-5.1); SODIUM 152 MMOL/L (136-145); TOTAL PROTEIN 7.8 G/DL (6.4-8.2)
[2017-09-06] MEDS: Zosyn 3.375gm/50ml Premix 50 ML IVPB SCH ×2 (08:14→16:00)
[2017-09-06] MEDS: Aspirin Baby 81mg GT SCH (08:58)
[2017-09-06] MEDS: Lactulose 20gm/30ml UDC GT SCH ×2 (08:58→17:55)
[2017-09-06] MEDS: Amiodarone 200mg tab GT SCH (08:59)
[2017-09-06] MEDS: levETIRAcetam 500mg/5ml Liquid GT SCH ×2 (08:59→20:49)
[2017-09-06] MEDS: Metoprolol Tartrate 12.5mg TAB ORAL SCH ×2 (08:59→20:49)
[2017-09-06] MEDS: Pantoprazole Inj IV SCH (08:59)
[2017-09-06] MEDS: Heparin 5000 units/ml inj SUBQ SCH ×2 (09:03→20:54)
--- NOTE | 2017-09-06 09:54 | Infectious Diseases Prog Note ---
Assessment/Plan Assessment/Plan A: Chronic sacral osteomyelitis Positive blood culture, contamination Multiple pressure ulcers Anemia VDRF P: -continue Zosyn d# 5 and IV Vanco d# 2 Subjective ROS Limited/Unobtainable: Yes Allergies: Coded Allergies: No Known Allergies (Unverified , 03/07/17) Objective Vital Signs Last 24 Hour Vital Signs Date Time Temp Pulse Resp B/P (MAP) Pulse Ox O2 Delivery O2 Flow Rate FiO2 09/06/17 09:00 103 24 35 09/06/17 08:59 103 125/73 09/06/17 08:00 99.7 103 24 125/73 100 Mechanical Ventilator 09/06/17 06:50 106 26 35 09/06/17 05:36 109 24 35 09/06/17 04:01 98.9 112 30 105/66 99 Mechanical Ventilator 35 09/06/17 04:00 35 09/06/17 04:00 98.9 112 24 105/66 99 Mechanical Ventilator 35 09/06/17 03:56 111 09/06/17 03:09 109 22 35 09/06/17 01:11 117 22 35 09/06/17 00:24 106 09/06/17 00:00 99.0 106 26 92/58 100 Mechanical Ventilator 35 09/06/17 00:00 35 09/05/17 22:54 106 28 35 09/05/17 21:45 115 103/58 09/05/17 20:52 120 28 35 09/05/17 20:01 99.0 115 28 103/58 100 Mechanical Ventilator 35 09/05/17 20:00 113 09/05/17 20:00 35 09/05/17 18:39 105 28 35 09/05/17 17:14 105 28 35 09/05/17 16:00 35 09/05/17 16:00 104 09/05/17 16:00 98.0 101 26 112/68 100 Mechanical Ventilator 35 09/05/17 15:41 90 09/05/17 15:02 100 26 35 09/05/17 13:30 98 21 35 09/05/17 12:00 35 09/05/17 12:00 98.2 83 18 99/65 100 Mechanical Ventilator 35 09/05/17 10:48 80 21 35 Height (Feet): 5 Height (Inches): 7.00 Weight (Pounds): 158 General Appearance: no acute distress HEENT: status post trach Respiratory/Chest: other - coarse sounds on ventilator Cardiovascular: tachycardia Abdomen: soft, non tender, other - GT feeding Extremities: no edema Skin: ulcers 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: other - opens eyes Laboratory Tests Test 09/06/17 03:40 White Blood Count 19.5 K/UL (4.8-10.8) H Red Blood Count 3.31 M/UL (4.70-6.10) L Hemoglobin 10.0 G/DL (14.2-18.0) L Hematocrit 31.4 % (42.0-52.0) L Mean Corpuscular Volume 95 FL (80-99) Mean Corpuscular Hemoglobin 30.2 PG (27.0-31.0) Mean Corpuscular Hemoglobin Concent 31.8 G/DL (32.0-36.0) L Red Cell Distribution Width 15.4 % (11.6-14.8) H Platelet Count 469 K/UL (150-450) H Mean Platelet Volume 5.5 FL (6.5-10.1) L Neutrophils (%) (Auto) % (45.0-75.0) Lymphocytes (%) (Auto) % (20.0-45.0) Monocytes (%) (Auto) % (1.0-10.0) Eosinophils (%) (Auto) % (0.0-3.0) Basophils (%) (Auto) % (0.0-2.0) Neutrophils % (Manual) Pending Lymphocytes % (Manual) Pending Platelet Estimate Pending Platelet Morphology Pending Sodium Level 152 MMOL/L (136-145) H Potassium Level 3.3 MMOL/L (3.5-5.1) L Chloride Level 115 MMOL/L (98-107) H Carbon Dioxide Level 28 MMOL/L (21-32) Anion Gap 9 mmol/L (5-15) Blood Urea Nitrogen 21 mg/dL (7-18) H Creatinine 0.9 MG/DL (0.55-1.30) Estimat Glomerular Filtration Rate > 60 mL/min (>60) Glucose Level 107 MG/DL (74-106) H Calcium Level 10.0 MG/DL (8.5-10.1) Phosphorus Level 2.6 MG/DL (2.5-4.9) Magnesium Level 1.8 MG/DL (1.8-2.4) Total Bilirubin 0.2 MG/DL (0.2-1.0) Aspartate Amino Transf (AST/SGOT) 19 U/L (15-37) Alanine Aminotransferase (ALT/SGPT) 37 U/L (12-78) Alkaline Phosphatase 119 U/L (46-116) H Total Protein 7.8 G/DL (6.4-8.2) Albumin 2.0 G/DL (3.4-5.0) L Globulin 5.8 g/dL Albumin/Globulin Ratio 0.3 (1.0-2.7) L Current Medications Medications (Trade) Dose Ordered Sig/Tameka Route PRN Reason Start Time Stop Time Status Last Admin Dose Admin Acetaminophen (Tylenol) 650 mg Q4H PRN ORAL FEVER 09/01/17 14:30 10/01/17 14:29 09/04/17 21:55 Albuterol/ Ipratropium (DuoNeb 0.5-3(2.5)mg/3ml) 3 ml Q4H PRN HHN Shortness of Breath 09/01/17 14:30 09/06/17 14:29 Amiodarone HCl (Cordarone) 200 mg DAILY GT 09/02/17 09:00 10/02/17 08:59 09/06/17 08:59 Aspirin (ASA) 81 mg DAILY GT 09/02/17 09:00 10/02/17 08:59 09/06/17 08:58 Clonidine HCl (Catapres) 0.1 mg Q6H PRN GT SBP > 160 09/01/17 14:30 10/01/17 14:29 Dextrose (Dextrose 50%) STAT PRN IV Hypoglycemia 09/01/17 14:30 10/01/17 14:29 Heparin Sodium (Porcine) (Heparin 5000 units/ml) 5,000 units EVERY 12 HOURS SUBQ 09/01/17 21:00 10/01/17 20:59 09/06/17 09:03 Lactulose (Cephulac) 20 gm BID GT 09/01/17 18:00 10/01/17 17:59 09/06/17 08:58 Levetiracetam (Keppra) 500 mg Q12HR GT 09/01/17 21:00 10/01/17 20:59 09/06/17 08:59 Lorazepam (Ativan 2mg/ml 1ml) 2 mg Q2H PRN IV For Anxiety 09/01/17 14:30 09/08/17 14:29 Metoprolol Tartrate (Lopressor) 12.5 mg Q12HR ORAL 09/03/17 21:00 10/03/17 20:59 09/06/17 08:59 Morphine Sulfate (Morphine Sulfate) 4 mg Q4H PRN IVP Severe Pain (Pain Scale 7-10) 09/01/17 14:30 09/08/17 14:29 09/04/17 03:44 Ondansetron HCl (Zofran) 4 mg Q6H PRN IVP Nausea & Vomiting 09/01/17 14:30 10/01/17 14:29 Pantoprazole (Protonix) 40 mg DAILY IV 09/02/17 09:00 10/02/17 08:59 09/06/17 08:59 Piperacillin/ Tazobactam/ Dextrose 50 ml @ 12.5 mls/hr Q8H IVPB 09/06/17 00:00 09/08/17 15:59 09/06/17 08:14 Polyethylene Glycol (Miralax) 17 gm DAILYPRN PRN GT Constipation 09/01/17 14:30 10/01/17 14:29 Vancomycin HCl (Vanco rx to dose) 1 ea DAILY PRN MISC Per rx protocol 09/05/17 14:15 10/05/17 14:14 Vancomycin/Sodium Chloride 250 ml @ 166.667 mls/hr Q24H IVPB 09/05/17 16:00 09/10/17 15:59 09/05/17 15:50 CHRISTINE MERA Sep 06, 2017 09:54
[2017-09-06 10:29] LABS: BAND NEUTROPHILS % (MANUAL) 0 % (0-8); BASOPHILS % (MANUAL) 0 % (0-2); EOSINOPHILS % (MANUAL) 0 % (0-3); LYMPHOCYTES % (MANUAL) 12 % (20-45); NEUTROPHILS % (MANUAL) 84 % (45-75); PLATELET ESTIMATE INCREASED; PLATELET MORPHOLOGY NORMAL; TOTAL CELLS COUNTED 100
--- NOTE | 2017-09-06 12:42 | Pulmonolgy Critical Care Note ---
Critical Care - Asmt/Plan Problems: (1) Sepsis (2) Chronic respiratory acidosis (3) Anemia (4) Atrial fibrillation (5) EF of 30 (6) Feeding by G-tube Respiratory: monitor respiratory rate, adjust FIO2 Cardiac: continue to monitor HR/BP Renal: F/U I&O Infectious Disease: check cultures, continue antibiotics Gastrointestinal: continue feedings/current rate Endocrine: monitor blood sugar, check HgA1C Hematologic: monitor H/H Neurologic: PRN Ativan Affect: PRN ativan Prophylaxis: Heparin Critical Care - Objective Last 24 Hour Vital Signs Date Time Temp Pulse Resp B/P (MAP) Pulse Ox O2 Delivery O2 Flow Rate FiO2 09/06/17 10:38 100 25 Mechanical Ventilator 15.0 35 09/06/17 10:38 101 25 35 09/06/17 09:00 103 24 35 09/06/17 08:59 103 125/73 09/06/17 08:00 99.7 103 24 125/73 100 Mechanical Ventilator 09/06/17 06:50 106 26 35 09/06/17 05:36 109 24 35 09/06/17 04:01 98.9 112 30 105/66 99 Mechanical Ventilator 35 09/06/17 04:00 35 09/06/17 04:00 98.9 112 24 105/66 99 Mechanical Ventilator 35 09/06/17 03:56 111 09/06/17 03:09 109 22 35 09/06/17 01:11 117 22 35 09/06/17 00:24 106 09/06/17 00:00 99.0 106 26 92/58 100 Mechanical Ventilator 35 09/06/17 00:00 35 09/05/17 22:54 106 28 35 09/05/17 21:45 115 103/58 09/05/17 20:52 120 28 35 09/05/17 20:01 99.0 115 28 103/58 100 Mechanical Ventilator 35 09/05/17 20:00 113 09/05/17 20:00 35 09/05/17 18:39 105 28 35 09/05/17 17:14 105 28 35 09/05/17 16:00 35 09/05/17 16:00 104 09/05/17 16:00 98.0 101 26 112/68 100 Mechanical Ventilator 35 09/05/17 15:41 90 09/05/17 15:02 100 26 35 09/05/17 13:30 98 21 35 Status: awake, sedated HEENT: atraumatic Neck: full ROM Lungs: chest wall tender Heart: HR/BP unstable Abdomen: soft, active bowel sounds Extremities: no C/C/E Accucheck: 98 Critical Care - Subjective ROS Limited/Unobtainable: Yes Condition: critical FI02: 35 Vent Support Breath Rate: 8 Vent Support Mode: IMV/SIMV Vent Tidal Volume: 600 Sputum Amount: Copious PEEP: 5.0 PIP: 14 Tube Feeding Amount: 30 Labs: Laboratory Tests Test 09/06/17 03:40 White Blood Count 19.5 K/UL (4.8-10.8) H Red Blood Count 3.31 M/UL (4.70-6.10) L Hemoglobin 10.0 G/DL (14.2-18.0) L Hematocrit 31.4 % (42.0-52.0) L Mean Corpuscular Volume 95 FL (80-99) Mean Corpuscular Hemoglobin 30.2 PG (27.0-31.0) Mean Corpuscular Hemoglobin Concent 31.8 G/DL (32.0-36.0) L Red Cell Distribution Width 15.4 % (11.6-14.8) H Platelet Count 469 K/UL (150-450) H Mean Platelet Volume 5.5 FL (6.5-10.1) L Neutrophils (%) (Auto) % (45.0-75.0) Lymphocytes (%) (Auto) % (20.0-45.0) Monocytes (%) (Auto) % (1.0-10.0) Eosinophils (%) (Auto) % (0.0-3.0) Basophils (%) (Auto) % (0.0-2.0) Differential Total Cells Counted 100 Neutrophils % (Manual) 84 % (45-75) H Lymphocytes % (Manual) 12 % (20-45) L Monocytes % (Manual) 4 % (1-10) Eosinophils % (Manual) 0 % (0-3) Basophils % (Manual) 0 % (0-2) Band Neutrophils 0 % (0-8) Platelet Estimate Increased H Platelet Morphology Normal Sodium Level 152 MMOL/L (136-145) H Potassium Level 3.3 MMOL/L (3.5-5.1) L Chloride Level 115 MMOL/L (98-107) H Carbon Dioxide Level 28 MMOL/L (21-32) Anion Gap 9 mmol/L (5-15) Blood Urea Nitrogen 21 mg/dL (7-18) H Creatinine 0.9 MG/DL (0.55-1.30) Estimat Glomerular Filtration Rate > 60 mL/min (>60) Glucose Level 107 MG/DL (74-106) H Calcium Level 10.0 MG/DL (8.5-10.1) Phosphorus Level 2.6 MG/DL (2.5-4.9) Magnesium Level 1.8 MG/DL (1.8-2.4) Total Bilirubin 0.2 MG/DL (0.2-1.0) Aspartate Amino Transf (AST/SGOT) 19 U/L (15-37) Alanine Aminotransferase (ALT/SGPT) 37 U/L (12-78) Alkaline Phosphatase 119 U/L (46-116) H Total Protein 7.8 G/DL (6.4-8.2) Albumin 2.0 G/DL (3.4-5.0) L Globulin 5.8 g/dL Albumin/Globulin Ratio 0.3 (1.0-2.7) L ODETTE SMILEY Sep 06, 2017 12:42
[2017-09-06] MEDS: Vancomycin 750mg/NS 250ml IVPB SCH (16:00)
[2017-09-07] VITALS (7 sets, daily range): BP systolic 97–111; BP diastolic 52–68
[2017-09-07] MEDS: Zosyn 3.375gm/50ml Premix 50 ML IVPB SCH ×4 (00:37→23:46)
[2017-09-07 04:50] LABS: BASOPHILS % (AUTO) 0.6 % (0.0-2.0); EOSINOPHILS % (AUTO) 0.7 % (0.0-3.0); LYMPHOCYTES % (AUTO) 16.2 % (20.0-45.0); MEAN CORPUSCULAR HEMOGLOBIN 30.6 PG (27.0-31.0); MEAN CORPUSCULAR HGB CONC 32.2 G/DL (32.0-36.0); MEAN CORPUSCULAR VOLUME 95 FL (80-99); MEAN PLATELET VOLUME 5.4 FL (6.5-10.1); MONOCYTES % (AUTO) 8.5 % (1.0-10.0); PLATELET COUNT 492 K/UL (150-450); RED BLOOD COUNT 3.33 M/UL (4.70-6.10); RED CELL DISTRIBUTION WIDTH 15.7 % (11.6-14.8); WHITE BLOOD COUNT 7.6 K/UL (4.8-10.8)
[2017-09-07 05:30] LABS: ALANINE AMINOTRANSFERASE 49 U/L (12-78); ALBUMIN/GLOBULIN RATIO 0.3 (1.0-2.7); ANION GAP 7 mmol/L (5-15); ASPARTATE AMINO TRANSFERASE 29 U/L (15-37); CALCIUM 10.5 MG/DL (8.5-10.1); CARBON DIOXIDE 28 MMOL/L (21-32); CHLORIDE 117 MMOL/L (98-107); CREATININE 0.9 MG/DL (0.55-1.30); CRP QUANT 22.5 mg/dL (0.00-0.90); GLOMERULAR FILTRATION RATE > 60 mL/min (>60); MAGNESIUM 1.9 MG/DL (1.8-2.4); PHOSPHORUS 3.3 MG/DL (2.5-4.9); POTASSIUM 3.4 MMOL/L (3.5-5.1); SODIUM 152 MMOL/L (136-145); TOTAL PROTEIN 7.9 G/DL (6.4-8.2)
[2017-09-07 06:26] LABS: ERYTHROCYTE SEDIMENTATION RATE 120 MM/HR (0-20)
--- NOTE | 2017-09-07 07:56 | Infectious Diseases Prog Note ---
Assessment/Plan Assessment/Plan A: Chronic sacral osteomyelitis Positive blood culture, contamination Multiple pressure ulcers Anemia VDRF P: -continue Zosyn d# 6 and IV Vancomycin d# 3 Subjective ROS Limited/Unobtainable: Yes Allergies: Coded Allergies: No Known Allergies (Unverified , 03/07/17) Objective Vital Signs Last 24 Hour Vital Signs Date Time Temp Pulse Resp B/P (MAP) Pulse Ox O2 Delivery O2 Flow Rate FiO2 09/07/17 06:48 91 24 35 09/07/17 05:18 99 23 35 09/07/17 05:00 99.0 97 20 103/63 100 Mechanical Ventilator 35 09/07/17 04:00 35 09/07/17 03:47 107 09/07/17 03:01 101 23 35 09/07/17 00:45 108 23 35 09/07/17 00:13 99.3 102 26 111/68 100 Mechanical Ventilator 35 09/07/17 00:00 35 09/07/17 00:00 99.3 102 20 111/68 100 Mechanical Ventilator 35 09/06/17 23:48 107 09/06/17 22:52 110 24 35 09/06/17 20:55 110 24 35 09/06/17 20:49 106 117/77 09/06/17 20:00 35 09/06/17 19:55 99.4 106 20 117/77 100 Mechanical Ventilator 35 09/06/17 19:11 106 09/06/17 18:46 105 24 35 09/06/17 16:46 105 22 35 09/06/17 16:00 103 09/06/17 16:00 35 09/06/17 16:00 98.4 101 22 110/72 100 Mechanical Ventilator 35 09/06/17 14:35 103 22 35 09/06/17 12:48 105 24 35 09/06/17 12:00 93 09/06/17 12:00 35 09/06/17 12:00 98.2 97 21 111/79 100 Mechanical Ventilator 35 09/06/17 10:38 100 25 Mechanical Ventilator 15.0 35 09/06/17 10:38 101 25 35 09/06/17 09:00 103 24 35 09/06/17 08:59 103 125/73 09/06/17 08:00 110 09/06/17 08:00 35 09/06/17 08:00 99.7 103 24 125/73 100 Mechanical Ventilator Height (Feet): 5 Height (Inches): 7.00 Weight (Pounds): 158 General Appearance: no acute distress HEENT: status post trach Respiratory/Chest: lungs clear, other - on ventilator Cardiovascular: normal rate Abdomen: soft, non tender, other - GT feeding Extremities: no edema Skin: ulcers 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: other - sleeping Microbiology Date/Time Source Procedure Growth Status 09/05/17 20:00 Blood Blood Culture - Preliminary NO GROWTH AFTER 24 HOURS Resulted 09/05/17 19:45 Blood Blood Culture - Preliminary NO GROWTH AFTER 24 HOURS Resulted Laboratory Tests Test 09/07/17 03:45 White Blood Count 7.6 K/UL (4.8-10.8) # Red Blood Count 3.33 M/UL (4.70-6.10) L Hemoglobin 10.2 G/DL (14.2-18.0) L Hematocrit 31.6 % (42.0-52.0) L Mean Corpuscular Volume 95 FL (80-99) Mean Corpuscular Hemoglobin 30.6 PG (27.0-31.0) Mean Corpuscular Hemoglobin Concent 32.2 G/DL (32.0-36.0) Red Cell Distribution Width 15.7 % (11.6-14.8) H Platelet Count 492 K/UL (150-450) H Mean Platelet Volume 5.4 FL (6.5-10.1) L Neutrophils (%) (Auto) 74.0 % (45.0-75.0) Lymphocytes (%) (Auto) 16.2 % (20.0-45.0) L Monocytes (%) (Auto) 8.5 % (1.0-10.0) Eosinophils (%) (Auto) 0.7 % (0.0-3.0) Basophils (%) (Auto) 0.6 % (0.0-2.0) Erythrocyte Sedimentation Rate 120 MM/HR (0-20) H Sodium Level 152 MMOL/L (136-145) H Potassium Level 3.4 MMOL/L (3.5-5.1) L Chloride Level 117 MMOL/L (98-107) H Carbon Dioxide Level 28 MMOL/L (21-32) Anion Gap 7 mmol/L (5-15) Blood Urea Nitrogen 23 mg/dL (7-18) H Creatinine 0.9 MG/DL (0.55-1.30) Estimat Glomerular Filtration Rate > 60 mL/min (>60) Glucose Level 128 MG/DL (74-106) H Calcium Level 10.5 MG/DL (8.5-10.1) H Phosphorus Level 3.3 MG/DL (2.5-4.9) Magnesium Level 1.9 MG/DL (1.8-2.4) Total Bilirubin 0.2 MG/DL (0.2-1.0) Aspartate Amino Transf (AST/SGOT) 29 U/L (15-37) Alanine Aminotransferase (ALT/SGPT) 49 U/L (12-78) Alkaline Phosphatase 110 U/L (46-116) C-Reactive Protein, Quantitative 22.5 mg/dL (0.00-0.90) H Total Protein 7.9 G/DL (6.4-8.2) Albumin 1.9 G/DL (3.4-5.0) L Globulin 6.0 g/dL Albumin/Globulin Ratio 0.3 (1.0-2.7) L Current Medications Medications (Trade) Dose Ordered Sig/Tameka Route PRN Reason Start Time Stop Time Status Last Admin Dose Admin Acetaminophen (Tylenol) 650 mg Q4H PRN ORAL FEVER 09/01/17 14:30 10/01/17 14:29 09/04/17 21:55 Amiodarone HCl (Cordarone) 200 mg DAILY GT 09/02/17 09:00 10/02/17 08:59 09/06/17 08:59 Aspirin (ASA) 81 mg DAILY GT 09/02/17 09:00 10/02/17 08:59 09/06/17 08:58 Clonidine HCl (Catapres) 0.1 mg Q6H PRN GT SBP > 160 09/01/17 14:30 10/01/17 14:29 Dextrose (Dextrose 50%) STAT PRN IV Hypoglycemia 09/01/17 14:30 10/01/17 14:29 Heparin Sodium (Porcine) (Heparin 5000 units/ml) 5,000 units EVERY 12 HOURS SUBQ 09/01/17 21:00 10/01/17 20:59 09/06/17 20:54 Lactulose (Cephulac) 20 gm BID GT 09/01/17 18:00 10/01/17 17:59 09/06/17 08:58 Levetiracetam (Keppra) 500 mg Q12HR GT 09/01/17 21:00 10/01/17 20:59 09/06/17 20:49 Lorazepam (Ativan 2mg/ml 1ml) 2 mg Q2H PRN IV For Anxiety 09/01/17 14:30 09/08/17 14:29 Metoprolol Tartrate (Lopressor) 12.5 mg Q12HR ORAL 09/03/17 21:00 10/03/17 20:59 09/06/17 20:49 Morphine Sulfate (Morphine Sulfate) 4 mg Q4H PRN IVP Severe Pain (Pain Scale 7-10) 09/01/17 14:30 09/08/17 14:29 09/04/17 03:44 Ondansetron HCl (Zofran) 4 mg Q6H PRN IVP Nausea & Vomiting 09/01/17 14:30 10/01/17 14:29 Pantoprazole (Protonix) 40 mg DAILY IV 09/02/17 09:00 10/02/17 08:59 09/06/17 08:59 Piperacillin/ Tazobactam/ Dextrose 50 ml @ 12.5 mls/hr Q8H IVPB 09/06/17 00:00 09/08/17 15:59 09/07/17 00:37 Polyethylene Glycol (Miralax) 17 gm DAILYPRN PRN GT Constipation 09/01/17 14:30 10/01/17 14:29 Vancomycin HCl (Vanco rx to dose) 1 ea DAILY PRN MISC Per rx protocol 09/05/17 14:15 10/05/17 14:14 Vancomycin/Sodium Chloride 250 ml @ 166.667 mls/hr Q24H IVPB 09/05/17 16:00 09/10/17 15:59 09/06/17 16:00 CHRISTINE MERA Sep 07, 2017 07:56
[2017-09-07] MEDS: Amiodarone 200mg tab GT SCH (08:39)
[2017-09-07] MEDS: levETIRAcetam 500mg/5ml Liquid GT SCH ×2 (08:40→20:21)
[2017-09-07] MEDS: Lactulose 20gm/30ml UDC GT SCH ×2 (08:40→17:36)
[2017-09-07] MEDS: Pantoprazole Inj IV SCH (08:40)
[2017-09-07] MEDS: Aspirin Baby 81mg GT SCH (08:40)
[2017-09-07] MEDS: Heparin 5000 units/ml inj SUBQ SCH ×2 (08:42→20:24)
[2017-09-07] MEDS: Metoprolol Tartrate 12.5mg TAB ORAL SCH ×2 (08:43→20:21)
[2017-09-07] MEDS ORDERED: NS 275ml ONE (10:41)
[2017-09-07] MEDS ORDERED: Sterile Water Irrig 1000ml IRRIG ONE (10:41)
[2017-09-07] MEDS ORDERED: Tubing IV Secondary IV ONE (10:41)
--- NOTE | 2017-09-07 11:42 | Pulmonolgy Critical Care Note ---
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 Renal: F/U I&O Infectious Disease: check cultures Gastrointestinal: continue feedings/current rate Endocrine: monitor blood sugar, check TSH Hematologic: monitor H/H Disposition: keep in ICU Notes Reviewed: manager zone, cardio, renal Discussed with: consultants Critical Care - Objective Last 24 Hour Vital Signs Date Time Temp Pulse Resp B/P (MAP) Pulse Ox O2 Delivery O2 Flow Rate FiO2 09/07/17 10:57 92 23 35 09/07/17 08:56 95 26 35 09/07/17 08:43 98 100/64 09/07/17 08:00 35 09/07/17 08:00 93 09/07/17 08:00 98.2 98 23 100/64 100 Mechanical Ventilator 35 09/07/17 06:48 91 24 35 09/07/17 05:18 99 23 35 09/07/17 05:00 99.0 97 20 103/63 100 Mechanical Ventilator 35 09/07/17 04:00 35 09/07/17 03:47 107 09/07/17 03:01 101 23 35 09/07/17 00:45 108 23 35 09/07/17 00:13 99.3 102 26 111/68 100 Mechanical Ventilator 35 09/07/17 00:00 35 09/07/17 00:00 99.3 102 20 111/68 100 Mechanical Ventilator 35 09/06/17 23:48 107 09/06/17 22:52 110 24 35 09/06/17 20:55 110 24 35 09/06/17 20:49 106 117/77 09/06/17 20:00 35 09/06/17 19:55 99.4 106 20 117/77 100 Mechanical Ventilator 35 09/06/17 19:11 106 09/06/17 18:46 105 24 35 09/06/17 16:46 105 22 35 09/06/17 16:00 103 09/06/17 16:00 35 09/06/17 16:00 98.4 101 22 110/72 100 Mechanical Ventilator 35 09/06/17 14:35 103 22 35 09/06/17 12:48 105 24 35 09/06/17 12:00 93 09/06/17 12:00 35 09/06/17 12:00 98.2 97 21 111/79 100 Mechanical Ventilator 35 Status: awake Condition: critical, grave HEENT: atraumatic Neck: full ROM Lungs: clear Heart: HR/BP stable, regular Abdomen: non-tender Extremities: no C/C/E Decubiti: location Micro: Microbiology Date/Time Source Procedure Growth Status 09/05/17 20:00 Blood Blood Culture - Preliminary NO GROWTH AFTER 24 HOURS Resulted 09/05/17 19:45 Blood Blood Culture - Preliminary NO GROWTH AFTER 24 HOURS Resulted Accucheck: 98 Critical Care - Subjective ROS Limited/Unobtainable: Yes EKG Rhythm: Sinus Rhythm FI02: 35 Vent Support Breath Rate: 8 Vent Support Mode: IMV/SIMV Vent Tidal Volume: 600 Sputum Amount: Small PEEP: 5.0 PIP: 16 Tube Feeding Amount: 30 Labs: Laboratory Tests Test 09/07/17 03:45 White Blood Count 7.6 K/UL (4.8-10.8) # Red Blood Count 3.33 M/UL (4.70-6.10) L Hemoglobin 10.2 G/DL (14.2-18.0) L Hematocrit 31.6 % (42.0-52.0) L Mean Corpuscular Volume 95 FL (80-99) Mean Corpuscular Hemoglobin 30.6 PG (27.0-31.0) Mean Corpuscular Hemoglobin Concent 32.2 G/DL (32.0-36.0) Red Cell Distribution Width 15.7 % (11.6-14.8) H Platelet Count 492 K/UL (150-450) H Mean Platelet Volume 5.4 FL (6.5-10.1) L Neutrophils (%) (Auto) 74.0 % (45.0-75.0) Lymphocytes (%) (Auto) 16.2 % (20.0-45.0) L Monocytes (%) (Auto) 8.5 % (1.0-10.0) Eosinophils (%) (Auto) 0.7 % (0.0-3.0) Basophils (%) (Auto) 0.6 % (0.0-2.0) Erythrocyte Sedimentation Rate 120 MM/HR (0-20) H Sodium Level 152 MMOL/L (136-145) H Potassium Level 3.4 MMOL/L (3.5-5.1) L Chloride Level 117 MMOL/L (98-107) H Carbon Dioxide Level 28 MMOL/L (21-32) Anion Gap 7 mmol/L (5-15) Blood Urea Nitrogen 23 mg/dL (7-18) H Creatinine 0.9 MG/DL (0.55-1.30) Estimat Glomerular Filtration Rate > 60 mL/min (>60) Glucose Level 128 MG/DL (74-106) H Calcium Level 10.5 MG/DL (8.5-10.1) H Phosphorus Level 3.3 MG/DL (2.5-4.9) Magnesium Level 1.9 MG/DL (1.8-2.4) Total Bilirubin 0.2 MG/DL (0.2-1.0) Aspartate Amino Transf (AST/SGOT) 29 U/L (15-37) Alanine Aminotransferase (ALT/SGPT) 49 U/L (12-78) Alkaline Phosphatase 110 U/L (46-116) C-Reactive Protein, Quantitative 22.5 mg/dL (0.00-0.90) H Total Protein 7.9 G/DL (6.4-8.2) Albumin 1.9 G/DL (3.4-5.0) L Globulin 6.0 g/dL Albumin/Globulin Ratio 0.3 (1.0-2.7) L ODETTE SMILEY Sep 07, 2017 11:42
[2017-09-07] MEDS: Vancomycin 750mg/NS 250ml IVPB SCH ×2 (16:00→16:43)
--- NOTE | 2017-09-07 16:02 | Cardiology Progress Note ---
Assessment/Plan Problem List: (1) Septic shock (2) Tracheostomy dependence (3) Feeding by G-tube (4) Acute on chronic respiratory failure (5) VT (ventricular tachycardia) (6) AICD (automatic cardioverter/defibrillator) present Status: stable Status Narrative Mr. Wells has not had further VT on telemetry. His ICD is functioning normally. LV EF is low-nl by recent ECHO ( EF appx 50%) He is being treated for sepsis, osteomyelitis and decubitus ulcers, as per ID. WBC is decreasing He is hypernatremic Assessment/Plan Continue iv abx per ID Continue telemetry monitoring. Supplement free h2o. Subjective ROS Limited/Unobtainable: Yes Subjective Cardiology for Dr. Casey Pt on vent/awake Objective Last 24 Hour Vital Signs Date Time Temp Pulse Resp B/P (MAP) Pulse Ox O2 Delivery O2 Flow Rate FiO2 09/07/17 14:51 91 23 35 09/07/17 13:01 91 24 35 09/07/17 12:00 98.9 100 23 108/64 100 Mechanical Ventilator 35 09/07/17 12:00 97 09/07/17 12:00 35 09/07/17 10:57 92 23 35 09/07/17 08:56 95 26 35 09/07/17 08:43 98 100/64 09/07/17 08:00 35 09/07/17 08:00 93 09/07/17 08:00 98.2 98 23 100/64 100 Mechanical Ventilator 35 09/07/17 06:48 91 24 35 09/07/17 05:18 99 23 35 09/07/17 05:00 99.0 97 20 103/63 100 Mechanical Ventilator 35 09/07/17 04:00 35 09/07/17 03:47 107 09/07/17 03:01 101 23 35 09/07/17 00:45 108 23 35 09/07/17 00:13 99.3 102 26 111/68 100 Mechanical Ventilator 35 09/07/17 00:00 35 09/07/17 00:00 99.3 102 20 111/68 100 Mechanical Ventilator 35 09/06/17 23:48 107 09/06/17 22:52 110 24 35 09/06/17 20:55 110 24 35 09/06/17 20:49 106 117/77 09/06/17 20:00 35 09/06/17 19:55 99.4 106 20 117/77 100 Mechanical Ventilator 35 09/06/17 19:11 106 09/06/17 18:46 105 24 35 09/06/17 16:46 105 22 35 09/06/17 16:00 103 09/06/17 16:00 35 09/06/17 16:00 98.4 101 22 110/72 100 Mechanical Ventilator 35 General Appearance: alert, thin, on vent EENT: PERRL/EOMI Neck: no JVD Rhythm: NSR Cardiovascular: normal rate, no gallop/murmur Respiratory/Chest: lungs clear Abdomen: normal bowel sounds, soft, other - + g tube Extremities: no swelling, other - contractures of LEs Intake and Output 09/07/17 09/08/17 19:00 07:00 Intake Total 485.0 ml Balance 485.0 ml Free Water 100 ml IV Total 50.0 ml Tube Feeding 285 ml Other 50 ml Laboratory Tests Test 09/07/17 03:45 White Blood Count 7.6 K/UL (4.8-10.8) # Red Blood Count 3.33 M/UL (4.70-6.10) L Hemoglobin 10.2 G/DL (14.2-18.0) L Hematocrit 31.6 % (42.0-52.0) L Mean Corpuscular Volume 95 FL (80-99) Mean Corpuscular Hemoglobin 30.6 PG (27.0-31.0) Mean Corpuscular Hemoglobin Concent 32.2 G/DL (32.0-36.0) Red Cell Distribution Width 15.7 % (11.6-14.8) H Platelet Count 492 K/UL (150-450) H Mean Platelet Volume 5.4 FL (6.5-10.1) L Neutrophils (%) (Auto) 74.0 % (45.0-75.0) Lymphocytes (%) (Auto) 16.2 % (20.0-45.0) L Monocytes (%) (Auto) 8.5 % (1.0-10.0) Eosinophils (%) (Auto) 0.7 % (0.0-3.0) Basophils (%) (Auto) 0.6 % (0.0-2.0) Erythrocyte Sedimentation Rate 120 MM/HR (0-20) H Sodium Level 152 MMOL/L (136-145) H Potassium Level 3.4 MMOL/L (3.5-5.1) L Chloride Level 117 MMOL/L (98-107) H Carbon Dioxide Level 28 MMOL/L (21-32) Anion Gap 7 mmol/L (5-15) Blood Urea Nitrogen 23 mg/dL (7-18) H Creatinine 0.9 MG/DL (0.55-1.30) Estimat Glomerular Filtration Rate > 60 mL/min (>60) Glucose Level 128 MG/DL (74-106) H Calcium Level 10.5 MG/DL (8.5-10.1) H Phosphorus Level 3.3 MG/DL (2.5-4.9) Magnesium Level 1.9 MG/DL (1.8-2.4) Total Bilirubin 0.2 MG/DL (0.2-1.0) Aspartate Amino Transf (AST/SGOT) 29 U/L (15-37) Alanine Aminotransferase (ALT/SGPT) 49 U/L (12-78) Alkaline Phosphatase 110 U/L (46-116) C-Reactive Protein, Quantitative 22.5 mg/dL (0.00-0.90) H Total Protein 7.9 G/DL (6.4-8.2) Albumin 1.9 G/DL (3.4-5.0) L Globulin 6.0 g/dL Albumin/Globulin Ratio 0.3 (1.0-2.7) L Microbiology Date/Time Source Procedure Growth Status 09/05/17 20:00 Blood Blood Culture - Preliminary NO GROWTH AFTER 24 HOURS Resulted 09/05/17 19:45 Blood Blood Culture - Preliminary NO GROWTH AFTER 24 HOURS Resulted WOODY BROWN Sep 07, 2017 16:01
[2017-09-08 00:24] VITALS: BP 108/67
[2017-09-08 04:00] VITALS: BP 103/61
[2017-09-08] MEDS: Vancomycin 500mg/D5W 110ml IVPB SCH ×4 (04:12→17:16)
[2017-09-08] MEDS: Morphine Sulfate 4mg/ml Inj IVP PRN (05:08)
[2017-09-08 05:22] LABS: BASOPHILS % (AUTO) 0.3 % (0.0-2.0); EOSINOPHILS % (AUTO) 3.9 % (0.0-3.0); LYMPHOCYTES % (AUTO) 15.7 % (20.0-45.0); MEAN CORPUSCULAR HEMOGLOBIN 30.1 PG (27.0-31.0); MEAN CORPUSCULAR HGB CONC 31.2 G/DL (32.0-36.0); MEAN CORPUSCULAR VOLUME 96 FL (80-99); MEAN PLATELET VOLUME 5.5 FL (6.5-10.1); MONOCYTES % (AUTO) 7.3 % (1.0-10.0); NEUTROPHILS % (AUTO) 72.9 % (45.0-75.0); PLATELET COUNT 469 K/UL (150-450); RED BLOOD COUNT 2.91 M/UL (4.70-6.10); RED CELL DISTRIBUTION WIDTH 15.5 % (11.6-14.8)
[2017-09-08 05:54] LABS: ALANINE AMINOTRANSFERASE 50 U/L (12-78); ALBUMIN/GLOBULIN RATIO 0.3 (1.0-2.7); ANION GAP 6 mmol/L (5-15); ASPARTATE AMINO TRANSFERASE 30 U/L (15-37); CALCIUM 9.9 MG/DL (8.5-10.1); CARBON DIOXIDE 29 MMOL/L (21-32); CHLORIDE 117 MMOL/L (98-107); CREATININE 0.9 MG/DL (0.55-1.30); GLOMERULAR FILTRATION RATE > 60 mL/min (>60); MAGNESIUM 1.9 MG/DL (1.8-2.4); PHOSPHORUS 2.8 MG/DL (2.5-4.9); POTASSIUM 3.3 MMOL/L (3.5-5.1); SODIUM 152 MMOL/L (136-145); TOTAL PROTEIN 7.7 G/DL (6.4-8.2)
[2017-09-08 06:05] LABS: INR 1.1 (0.9-1.1); PROTHROMBIN TIME 11.6 SEC (9.30-11.50)
[2017-09-08 08:00] VITALS: BP 112/68
[2017-09-08] MEDS: Zosyn 3.375gm/50ml Premix 50 ML IVPB SCH (08:44)
[2017-09-08] MEDS: Amiodarone 200mg tab GT SCH (09:08)
[2017-09-08] MEDS: Metoprolol Tartrate 12.5mg TAB ORAL SCH ×2 (09:08→20:44)
[2017-09-08] MEDS: levETIRAcetam 500mg/5ml Liquid GT SCH ×2 (09:09→20:44)
[2017-09-08] MEDS: Lactulose 20gm/30ml UDC GT SCH ×2 (09:09→17:17)
[2017-09-08] MEDS: Pantoprazole Inj IV SCH (09:10)
[2017-09-08] MEDS: Aspirin Baby 81mg GT SCH (09:10)
[2017-09-08] MEDS: Heparin 5000 units/ml inj SUBQ SCH ×2 (09:17→20:47)
--- NOTE | 2017-09-08 09:50 | Infectious Diseases Prog Note ---
Assessment/Plan Assessment/Plan // Diptheroids bacteremia 2/4 Probably contaminant - repeat Cx : NTD //Tachycardia>Arrhythmia- r/o infectious process- so far none identified, other than above -afebrile -CXR no acute disease -u/a neg //Leukocytosis, mild- recurrent // Recent HCAP / VAP SP - SCx 08/13 : +4 MDR A. baumani (S. Colistin, Polymxin B ) and +4 MDR PsA (S. Cefepime, Gentamicn/Amkikacin); s/p Rx Vanco, Zosyn, INH colistin r/o recurrence - CXR 09/01: Lungs and pleural spaces are clear - h/o MDR-ACB, KPC, Providencia, XDR Pseudomonas // Chronic sacrococcygeal osteomyelitis - surveillance WCx MRSA (S. bactrim, tetracycline, vancomycin), diptheroids - previous evaluation by surgery deemed not a surgical candidate - CT with contrast--some sacral/coccygeal erosion, but no abscess. no profound progression. - h/o MDR ACB, C albicans, and KPC (sensitive only to colistin) // Multiple decubiti POA, not grossly infected // h/o Coag neg staph RUE PICC associated bacteremia // h/o MDR Klebsiella and zosyn resistant Pseudomonas asymptomatic bacteriuria // HCV Ab+, no transaminitis currently // Negative HIV Chronic VDRF SP trach, PEG Chronic anoxic encephalopathy SP cardiac arrest Elevated ESR - worse Reactive thrombocytosis Cachexia with elevated CEA, normal PSA Acute on chronic anemia Sinus tachycardia Chronic systolic CHF, EF 30% SP AICD Paroxysmal Afib Skilled Nursing resident MDRO colonized NKDA Full code Plan: -D/c Zosyn d# 7 -Continue IV Vanco d# 4 for now ( 09/03 SP IV vancomycin d# 3 ) -f repeat blood Cx -Monitor CBC/BMP, temperatures -monitor CXR -peg/trach care -aspiration precautions -wound care Discussed with RN Subjective Allergies: Coded Allergies: No Known Allergies (Unverified , 03/07/17) Subjective afebrile Objective Vital Signs Last 24 Hour Vital Signs Date Time Temp Pulse Resp B/P (MAP) Pulse Ox O2 Delivery O2 Flow Rate FiO2 09/08/17 09:08 88 112/68 09/08/17 08:51 88 23 35 09/08/17 08:00 98.4 90 28 112/68 100 Mechanical Ventilator 35 09/08/17 08:00 79 09/08/17 06:35 84 26 35 09/08/17 05:38 98.1 09/08/17 05:16 94 22 35 09/08/17 04:00 98.9 95 20 103/61 100 Mechanical Ventilator 35 09/08/17 04:00 102 09/08/17 04:00 35 09/08/17 03:24 109 25 35 09/08/17 01:14 86 20 35 09/08/17 00:24 98.1 98 23 108/67 100 Mechanical Ventilator 35 09/08/17 00:00 35 09/08/17 00:00 96 09/07/17 23:21 91 19 35 09/07/17 21:01 90 20 35 09/07/17 20:21 98 102/45 09/07/17 20:00 98.2 98 24 102/52 100 Mechanical Ventilator 35 09/07/17 20:00 96 09/07/17 20:00 35 09/07/17 19:25 87 22 35 09/07/17 16:31 90 23 35 09/07/17 16:00 99.1 96 23 97/63 100 Mechanical Ventilator 35 09/07/17 16:00 100 09/07/17 16:00 35 09/07/17 14:51 91 23 35 09/07/17 13:01 91 24 35 09/07/17 12:00 98.9 100 23 108/64 100 Mechanical Ventilator 35 09/07/17 12:00 97 09/07/17 12:00 35 09/07/17 10:57 92 23 35 Height (Feet): 5 Height (Inches): 7.00 Weight (Pounds): 158 Objective General Appearance: no acute distress HEENT: status post trach Respiratory/Chest: lungs clear, other - on ventilator Cardiovascular: normal rate Abdomen: soft, non tender, other - GT feeding Extremities: no edema Skin: ulcers 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: other - sleeping Microbiology Date/Time Source Procedure Growth Status 09/05/17 20:00 Blood Blood Culture - Preliminary NO GROWTH AFTER 48 HOURS Resulted 09/05/17 19:45 Blood Blood Culture - Preliminary NO GROWTH AFTER 48 HOURS Resulted Laboratory Tests Test 09/07/17 15:36 09/08/17 03:45 Vancomycin Level Trough 11.1 ug/mL (5.0-12.0) White Blood Count 13.0 K/UL (4.8-10.8) #H Red Blood Count 2.91 M/UL (4.70-6.10) L Hemoglobin 8.7 G/DL (14.2-18.0) L Hematocrit 28.0 % (42.0-52.0) L Mean Corpuscular Volume 96 FL (80-99) Mean Corpuscular Hemoglobin 30.1 PG (27.0-31.0) Mean Corpuscular Hemoglobin Concent 31.2 G/DL (32.0-36.0) L Red Cell Distribution Width 15.5 % (11.6-14.8) H Platelet Count 469 K/UL (150-450) H Mean Platelet Volume 5.5 FL (6.5-10.1) L Neutrophils (%) (Auto) 72.9 % (45.0-75.0) Lymphocytes (%) (Auto) 15.7 % (20.0-45.0) L Monocytes (%) (Auto) 7.3 % (1.0-10.0) Eosinophils (%) (Auto) 3.9 % (0.0-3.0) H Basophils (%) (Auto) 0.3 % (0.0-2.0) Prothrombin Time 11.6 SEC (9.30-11.50) H Prothromb Time International Ratio 1.1 (0.9-1.1) Activated Partial Thromboplast Time 30 SEC (23-33) Sodium Level 152 MMOL/L (136-145) H Potassium Level 3.3 MMOL/L (3.5-5.1) L Chloride Level 117 MMOL/L (98-107) H Carbon Dioxide Level 29 MMOL/L (21-32) Anion Gap 6 mmol/L (5-15) Blood Urea Nitrogen 23 mg/dL (7-18) H Creatinine 0.9 MG/DL (0.55-1.30) Estimat Glomerular Filtration Rate > 60 mL/min (>60) Glucose Level 130 MG/DL (74-106) H Calcium Level 9.9 MG/DL (8.5-10.1) Phosphorus Level 2.8 MG/DL (2.5-4.9) Magnesium Level 1.9 MG/DL (1.8-2.4) Total Bilirubin 0.2 MG/DL (0.2-1.0) Aspartate Amino Transf (AST/SGOT) 30 U/L (15-37) Alanine Aminotransferase (ALT/SGPT) 50 U/L (12-78) Alkaline Phosphatase 106 U/L (46-116) Total Protein 7.7 G/DL (6.4-8.2) Albumin 1.8 G/DL (3.4-5.0) L Globulin 5.9 g/dL Albumin/Globulin Ratio 0.3 (1.0-2.7) L Current Medications Medications (Trade) Dose Ordered Sig/Tameka Route PRN Reason Start Time Stop Time Status Last Admin Dose Admin Acetaminophen (Tylenol) 650 mg Q4H PRN ORAL FEVER 09/01/17 14:30 10/01/17 14:29 09/04/17 21:55 Amiodarone HCl (Cordarone) 200 mg DAILY GT 09/02/17 09:00 10/02/17 08:59 09/08/17 09:08 Aspirin (ASA) 81 mg DAILY GT 09/02/17 09:00 10/02/17 08:59 09/08/17 09:10 Clonidine HCl (Catapres) 0.1 mg Q6H PRN GT SBP > 160 09/01/17 14:30 10/01/17 14:29 Dextrose 1,000 ml @ 50 mls/hr Q20H IV 09/07/17 17:00 10/07/17 16:59 09/07/17 16:44 Dextrose (Dextrose 50%) STAT PRN IV Hypoglycemia 09/01/17 14:30 10/01/17 14:29 Heparin Sodium (Porcine) (Heparin 5000 units/ml) 5,000 units EVERY 12 HOURS SUBQ 09/01/17 21:00 10/01/17 20:59 09/08/17 09:17 Lactulose (Cephulac) 20 gm BID GT 09/01/17 18:00 10/01/17 17:59 09/08/17 09:09 Levetiracetam (Keppra) 500 mg Q12HR GT 09/01/17 21:00 10/01/17 20:59 09/08/17 09:09 Lorazepam (Ativan 2mg/ml 1ml) 2 mg Q2H PRN IV For Anxiety 09/01/17 14:30 09/08/17 14:29 Metoprolol Tartrate (Lopressor) 12.5 mg Q12HR ORAL 09/03/17 21:00 10/03/17 20:59 09/08/17 09:08 Morphine Sulfate (Morphine Sulfate) 4 mg Q4H PRN IVP Severe Pain (Pain Scale 7-10) 09/01/17 14:30 09/08/17 14:29 09/08/17 05:08 Ondansetron HCl (Zofran) 4 mg Q6H PRN IVP Nausea & Vomiting 09/01/17 14:30 10/01/17 14:29 Pantoprazole (Protonix) 40 mg DAILY IV 09/02/17 09:00 10/02/17 08:59 09/08/17 09:10 Piperacillin/ Tazobactam/ Dextrose 50 ml @ 12.5 mls/hr Q8H IVPB 09/06/17 00:00 09/08/17 15:59 09/08/17 08:44 Polyethylene Glycol (Miralax) 17 gm DAILYPRN PRN GT Constipation 09/01/17 14:30 10/01/17 14:29 Vancomycin HCl (Vanco rx to dose) 1 ea DAILY PRN MISC Per rx protocol 09/05/17 14:15 10/05/17 14:14 Vancomycin HCl 500 mg/Dextrose 110 ml @ 110 mls/hr Q12HR@0400,1600 IVPB 09/08/17 04:00 09/13/17 03:59 09/08/17 04:12 Radha Saini M.D. Sep 08, 2017 09:50
--- NOTE | 2017-09-08 10:20 | Pulmonolgy Critical Care Note ---
Critical Care - Asmt/Plan Problems: (1) Sepsis (2) Chronic respiratory acidosis (3) Bacteremia (4) Feeding by G-tube (5) EF of 30 (6) Atrial fibrillation (7) Anemia Respiratory: monitor respiratory rate, adjust FIO2 Cardiac: continue to monitor HR/BP Renal: F/U I&O, keep IV fluid Infectious Disease: check cultures, other - on vancomycin, check repeat blood cultures Gastrointestinal: continue feedings/current rate, hold feedings Endocrine: check TSH, check HgA1C Neurologic: PRN Ativan Prophylaxis: Heparin Critical Care - Objective Last 24 Hour Vital Signs Date Time Temp Pulse Resp B/P (MAP) Pulse Ox O2 Delivery O2 Flow Rate FiO2 09/08/17 09:08 88 112/68 09/08/17 08:51 88 23 35 09/08/17 08:00 98.4 90 28 112/68 100 Mechanical Ventilator 35 09/08/17 08:00 79 09/08/17 06:35 84 26 35 09/08/17 05:38 98.1 09/08/17 05:16 94 22 35 09/08/17 04:00 98.9 95 20 103/61 100 Mechanical Ventilator 35 09/08/17 04:00 102 09/08/17 04:00 35 09/08/17 03:24 109 25 35 09/08/17 01:14 86 20 35 09/08/17 00:24 98.1 98 23 108/67 100 Mechanical Ventilator 35 09/08/17 00:00 35 09/08/17 00:00 96 09/07/17 23:21 91 19 35 09/07/17 21:01 90 20 35 09/07/17 20:21 98 102/45 09/07/17 20:00 98.2 98 24 102/52 100 Mechanical Ventilator 35 09/07/17 20:00 96 09/07/17 20:00 35 09/07/17 19:25 87 22 35 09/07/17 16:31 90 23 35 09/07/17 16:00 99.1 96 23 97/63 100 Mechanical Ventilator 35 09/07/17 16:00 100 09/07/17 16:00 35 09/07/17 14:51 91 23 35 09/07/17 13:01 91 24 35 09/07/17 12:00 98.9 100 23 108/64 100 Mechanical Ventilator 35 09/07/17 12:00 97 09/07/17 12:00 35 09/07/17 10:57 92 23 35 Status: awake Condition: critical, grave Neck: full ROM Lungs: clear Heart: HR/BP stable, HR/BP unstable Abdomen: soft, feeding tube Decubiti: stage Micro: Microbiology Date/Time Source Procedure Growth Status 09/05/17 20:00 Blood Blood Culture - Preliminary NO GROWTH AFTER 48 HOURS Resulted 09/05/17 19:45 Blood Blood Culture - Preliminary NO GROWTH AFTER 48 HOURS Resulted Accucheck: 98 Critical Care - Subjective FI02: 35 Vent Support Breath Rate: 8 Vent Support Mode: IMV/SIMV Vent Tidal Volume: 600 Sputum Amount: Small PEEP: 5.0 PIP: 14 Tube Feeding Amount: 60 CXR: no change Labs: Laboratory Tests Test 09/07/17 15:36 09/08/17 03:45 Vancomycin Level Trough 11.1 ug/mL (5.0-12.0) White Blood Count 13.0 K/UL (4.8-10.8) #H Red Blood Count 2.91 M/UL (4.70-6.10) L Hemoglobin 8.7 G/DL (14.2-18.0) L Hematocrit 28.0 % (42.0-52.0) L Mean Corpuscular Volume 96 FL (80-99) Mean Corpuscular Hemoglobin 30.1 PG (27.0-31.0) Mean Corpuscular Hemoglobin Concent 31.2 G/DL (32.0-36.0) L Red Cell Distribution Width 15.5 % (11.6-14.8) H Platelet Count 469 K/UL (150-450) H Mean Platelet Volume 5.5 FL (6.5-10.1) L Neutrophils (%) (Auto) 72.9 % (45.0-75.0) Lymphocytes (%) (Auto) 15.7 % (20.0-45.0) L Monocytes (%) (Auto) 7.3 % (1.0-10.0) Eosinophils (%) (Auto) 3.9 % (0.0-3.0) H Basophils (%) (Auto) 0.3 % (0.0-2.0) Prothrombin Time 11.6 SEC (9.30-11.50) H Prothromb Time International Ratio 1.1 (0.9-1.1) Activated Partial Thromboplast Time 30 SEC (23-33) Sodium Level 152 MMOL/L (136-145) H Potassium Level 3.3 MMOL/L (3.5-5.1) L Chloride Level 117 MMOL/L (98-107) H Carbon Dioxide Level 29 MMOL/L (21-32) Anion Gap 6 mmol/L (5-15) Blood Urea Nitrogen 23 mg/dL (7-18) H Creatinine 0.9 MG/DL (0.55-1.30) Estimat Glomerular Filtration Rate > 60 mL/min (>60) Glucose Level 130 MG/DL (74-106) H Calcium Level 9.9 MG/DL (8.5-10.1) Phosphorus Level 2.8 MG/DL (2.5-4.9) Magnesium Level 1.9 MG/DL (1.8-2.4) Total Bilirubin 0.2 MG/DL (0.2-1.0) Aspartate Amino Transf (AST/SGOT) 30 U/L (15-37) Alanine Aminotransferase (ALT/SGPT) 50 U/L (12-78) Alkaline Phosphatase 106 U/L (46-116) Total Protein 7.7 G/DL (6.4-8.2) Albumin 1.8 G/DL (3.4-5.0) L Globulin 5.9 g/dL Albumin/Globulin Ratio 0.3 (1.0-2.7) L ODETTE SMILEY Sep 08, 2017 10:19
[2017-09-08 11:50] VITALS: BP 99/59
[2017-09-08 16:00] VITALS: BP 108/64
[2017-09-08] MEDS ORDERED: KCl 10% 40mEq/30ml liquid NG ONE (17:00)
[2017-09-08 20:00] VITALS: BP 104/67
[2017-09-09] VITALS (7 sets, daily range): BP systolic 112–133; BP diastolic 59–78
[2017-09-09] MEDS: Vancomycin 500mg/D5W 110ml IVPB SCH ×2 (04:11)
[2017-09-09 05:55] LABS: BASOPHILS % (AUTO) 0.3 % (0.0-2.0); EOSINOPHILS % (AUTO) 5.2 % (0.0-3.0); LYMPHOCYTES % (AUTO) 13.8 % (20.0-45.0); MEAN CORPUSCULAR HEMOGLOBIN 31.1 PG (27.0-31.0); MEAN CORPUSCULAR HGB CONC 32.3 G/DL (32.0-36.0); MEAN CORPUSCULAR VOLUME 96 FL (80-99); MEAN PLATELET VOLUME 5.8 FL (6.5-10.1); NEUTROPHILS % (AUTO) 74.6 % (45.0-75.0); PLATELET COUNT 425 K/UL (150-450); RED BLOOD COUNT 2.77 M/UL (4.70-6.10); RED CELL DISTRIBUTION WIDTH 15.4 % (11.6-14.8); WHITE BLOOD COUNT 12.6 K/UL (4.8-10.8)
[2017-09-09 06:07] LABS: INR 1.1 (0.9-1.1)
[2017-09-09 06:23] LABS: ALANINE AMINOTRANSFERASE 50 U/L (12-78); ALBUMIN/GLOBULIN RATIO 0.3 (1.0-2.7); ANION GAP 8 mmol/L (5-15); ASPARTATE AMINO TRANSFERASE 33 U/L (15-37); CALCIUM 9.6 MG/DL (8.5-10.1); CARBON DIOXIDE 27 MMOL/L (21-32); CHLORIDE 117 MMOL/L (98-107); CREATININE 0.8 MG/DL (0.55-1.30); GLOMERULAR FILTRATION RATE > 60 mL/min (>60); MAGNESIUM 1.8 MG/DL (1.8-2.4); PHOSPHORUS 2.4 MG/DL (2.5-4.9); POTASSIUM 4.4 MMOL/L (3.5-5.1); SODIUM 152 MMOL/L (136-145); TOTAL PROTEIN 7.5 G/DL (6.4-8.2)
[2017-09-09] MEDS: Lactulose 20gm/30ml UDC GT SCH ×2 (09:01→17:21)
[2017-09-09] MEDS: Aspirin Baby 81mg GT SCH (09:01)
[2017-09-09] MEDS: Metoprolol Tartrate 12.5mg TAB ORAL SCH ×2 (09:01→20:49)
[2017-09-09] MEDS: levETIRAcetam 500mg/5ml Liquid GT SCH ×2 (09:01→20:49)
[2017-09-09] MEDS: Pantoprazole Inj IV SCH (09:01)
[2017-09-09] MEDS: Amiodarone 200mg tab GT SCH (09:01)
[2017-09-09] MEDS: Heparin 5000 units/ml inj SUBQ SCH ×2 (09:02→20:51)
--- NOTE | 2017-09-09 10:27 | Infectious Diseases Prog Note ---
Assessment/Plan Assessment/Plan // Diptheroids bacteremia 2/4 Probably contaminant - repeat Cx : NTD -TTE: Technically difficult study due to poor acoustical windows. No vegetations seen. Probable pacemaker wire present in the right side chambers. NO significant valve abnormalities. //Tachycardia>Arrhythmia- r/o infectious process- so far none identified, other than above -afebrile -CXR no acute disease -u/a neg //Leukocytosis, mild- recurrent, improving // Recent HCAP / VAP SP - SCx 08/13 : +4 MDR A. baumani (S. Colistin, Polymxin B ) and +4 MDR PsA (S. Cefepime, Gentamicn/Amkikacin); s/p Rx Vanco, Zosyn, INH colistin r/o recurrence - CXR 09/01: Lungs and pleural spaces are clear - h/o MDR-ACB, KPC, Providencia, XDR Pseudomonas // Chronic sacrococcygeal osteomyelitis - surveillance WCx MRSA (S. bactrim, tetracycline, vancomycin), diptheroids - previous evaluation by surgery deemed not a surgical candidate - CT with contrast--some sacral/coccygeal erosion, but no abscess. no profound progression. - h/o MDR ACB, C albicans, and KPC (sensitive only to colistin) // Multiple decubiti POA, not grossly infected -sacral wound cx: MRSA (S. Vanco, bactrim, tetracycline), Diphteroids // h/o Coag neg staph RUE PICC associated bacteremia // h/o MDR Klebsiella and zosyn resistant Pseudomonas asymptomatic bacteriuria // HCV Ab+, no transaminitis currently // Negative HIV Chronic VDRF SP trach, PEG Chronic anoxic encephalopathy SP cardiac arrest Elevated ESR - worse Reactive thrombocytosis Cachexia with elevated CEA, normal PSA Acute on chronic anemia Sinus tachycardia Chronic systolic CHF, EF 30% SP AICD Paroxysmal Afib Snf resident MDRO colonized NKDA Full code Plan: -Last day of empiric IV Vanco d# 5 ( 09/08 SP IV Zosyn d#7 ( 09/03 SP IV vancomycin d# 3 ) -f/u repeat blood Cx -Repeat 2 sets of Bcx 5 days of abx given prsence of pacemaker and dipterhoids bacteremia -Monitor CBC/BMP, temperatures -monitor CXR -peg/trach care -aspiration precautions -wound care Discussed with RN Subjective Allergies: Coded Allergies: No Known Allergies (Unverified , 03/07/17) Subjective afebrile Objective Vital Signs Last 24 Hour Vital Signs Date Time Temp Pulse Resp B/P (MAP) Pulse Ox O2 Delivery O2 Flow Rate FiO2 09/09/17 09:01 92 122/74 09/09/17 08:57 92 20 35 09/09/17 08:00 98.9 91 21 122/74 100 Mechanical Ventilator 35 09/09/17 08:00 35 09/09/17 07:32 97 09/09/17 06:59 78 18 35 09/09/17 04:53 82 21 35 09/09/17 04:00 80 09/09/17 04:00 35 09/09/17 03:56 98.5 94 19 112/59 100 Mechanical Ventilator 35 09/09/17 03:24 79 16 35 09/09/17 01:30 79 20 35 09/09/17 00:00 98.1 92 18 115/70 100 Mechanical Ventilator 35 09/09/17 00:00 85 09/08/17 23:20 73 18 35 09/08/17 23:03 99.6 09/08/17 20:44 94 104/67 09/08/17 20:40 91 21 35 09/08/17 20:00 98.8 98 20 104/67 100 Mechanical Ventilator 35 09/08/17 20:00 35 09/08/17 19:25 95 22 35 09/08/17 19:18 95 09/08/17 17:18 93 24 35 09/08/17 16:00 99.6 90 19 108/64 100 Mechanical Ventilator 35 09/08/17 16:00 35 09/08/17 16:00 87 09/08/17 15:00 88 19 35 09/08/17 12:40 85 18 35 09/08/17 12:00 35 09/08/17 12:00 73 09/08/17 11:50 98.6 77 19 99/59 100 Mechanical Ventilator 35 09/08/17 11:00 74 20 35 Height (Feet): 5 Height (Inches): 7.00 Weight (Pounds): 158 Objective General Appearance: no acute distress HEENT: status post trach Respiratory/Chest: lungs clear, other - on ventilator Cardiovascular: normal rate Abdomen: soft, non tender, other - GT feeding Extremities: no edema Skin: ulcers 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: other - sleeping reviewed Laboratory Tests Test 09/09/17 03:50 White Blood Count 12.6 K/UL (4.8-10.8) H Red Blood Count 2.77 M/UL (4.70-6.10) L Hemoglobin 8.6 G/DL (14.2-18.0) L Hematocrit 26.6 % (42.0-52.0) L Mean Corpuscular Volume 96 FL (80-99) Mean Corpuscular Hemoglobin 31.1 PG (27.0-31.0) H Mean Corpuscular Hemoglobin Concent 32.3 G/DL (32.0-36.0) Red Cell Distribution Width 15.4 % (11.6-14.8) H Platelet Count 425 K/UL (150-450) Mean Platelet Volume 5.8 FL (6.5-10.1) L Neutrophils (%) (Auto) 74.6 % (45.0-75.0) Lymphocytes (%) (Auto) 13.8 % (20.0-45.0) L Monocytes (%) (Auto) 6.0 % (1.0-10.0) Eosinophils (%) (Auto) 5.2 % (0.0-3.0) H Basophils (%) (Auto) 0.3 % (0.0-2.0) Prothrombin Time 11.0 SEC (9.30-11.50) Prothromb Time International Ratio 1.1 (0.9-1.1) Activated Partial Thromboplast Time 28 SEC (23-33) Sodium Level 152 MMOL/L (136-145) H Potassium Level 4.4 MMOL/L (3.5-5.1) Chloride Level 117 MMOL/L (98-107) H Carbon Dioxide Level 27 MMOL/L (21-32) Anion Gap 8 mmol/L (5-15) Blood Urea Nitrogen 23 mg/dL (7-18) H Creatinine 0.8 MG/DL (0.55-1.30) Estimat Glomerular Filtration Rate > 60 mL/min (>60) Glucose Level 127 MG/DL (74-106) H Calcium Level 9.6 MG/DL (8.5-10.1) Phosphorus Level 2.4 MG/DL (2.5-4.9) L Magnesium Level 1.8 MG/DL (1.8-2.4) Total Bilirubin 0.1 MG/DL (0.2-1.0) L Aspartate Amino Transf (AST/SGOT) 33 U/L (15-37) Alanine Aminotransferase (ALT/SGPT) 50 U/L (12-78) Alkaline Phosphatase 101 U/L (46-116) Total Protein 7.5 G/DL (6.4-8.2) Albumin 1.8 G/DL (3.4-5.0) L Globulin 5.7 g/dL Albumin/Globulin Ratio 0.3 (1.0-2.7) L Current Medications Medications (Trade) Dose Ordered Sig/Tameka Route PRN Reason Start Time Stop Time Status Last Admin Dose Admin Acetaminophen (Tylenol) 650 mg Q4H PRN ORAL FEVER 09/01/17 14:30 10/01/17 14:29 09/08/17 22:04 Amiodarone HCl (Cordarone) 200 mg DAILY GT 09/02/17 09:00 10/02/17 08:59 09/09/17 09:01 Aspirin (ASA) 81 mg DAILY GT 09/02/17 09:00 10/02/17 08:59 09/09/17 09:01 Clonidine HCl (Catapres) 0.1 mg Q6H PRN GT SBP > 160 09/01/17 14:30 10/01/17 14:29 Dextrose 1,000 ml @ 50 mls/hr Q20H IV 09/07/17 17:00 10/07/17 16:59 09/09/17 09:01 Dextrose (Dextrose 50%) STAT PRN IV Hypoglycemia 09/01/17 14:30 10/01/17 14:29 Heparin Sodium (Porcine) (Heparin 5000 units/ml) 5,000 units EVERY 12 HOURS SUBQ 09/01/17 21:00 10/01/17 20:59 09/09/17 09:02 Lactulose (Cephulac) 20 gm BID GT 09/01/17 18:00 10/01/17 17:59 09/09/17 09:01 Levetiracetam (Keppra) 500 mg Q12HR GT 09/01/17 21:00 10/01/17 20:59 09/09/17 09:01 Metoprolol Tartrate (Lopressor) 12.5 mg Q12HR ORAL 09/03/17 21:00 10/03/17 20:59 09/09/17 09:01 Ondansetron HCl (Zofran) 4 mg Q6H PRN IVP Nausea & Vomiting 09/01/17 14:30 10/01/17 14:29 Pantoprazole (Protonix) 40 mg DAILY IV 09/02/17 09:00 10/02/17 08:59 09/09/17 09:01 Polyethylene Glycol (Miralax) 17 gm DAILYPRN PRN GT Constipation 09/01/17 14:30 10/01/17 14:29 Vancomycin HCl (Vanco rx to dose) 1 ea DAILY PRN MISC Per rx protocol 09/05/17 14:15 10/05/17 14:14 Vancomycin HCl 500 mg/Dextrose 110 ml @ 110 mls/hr Q12HR@0400,1600 IVPB 09/08/17 04:00 09/13/17 03:59 09/09/17 04:11 Radha Saini M.D. Sep 09, 2017 10:27
[2017-09-09] MEDS ORDERED: D5W 250 ML IVPB ONE (11:15)
[2017-09-09] MEDS ORDERED: NS 275ml ONE (14:42)
[2017-09-09] MEDS ORDERED: Tubing IV Secondary IV ONE (14:42)
[2017-09-09] MEDS ORDERED: Vancomycin 500 MG in D5W 110 ML IVPB SCH (16:00)
[2017-09-10] VITALS: BP 135/85
--- NOTE | 2017-09-12 12:29 | Discharge Summary ---
Discharge Summary Hospital Course Date of Admission Sep 01, 2017 at 12:24 Date of Discharge Sep 10, 2017 at 02:55 Admitting Diagnosis pacemaker/ defibrilator placement HPI Yamil Wells is a 57 year old male who was admitted on Sep 01, 2017 at 12:24 for Pacemaker/Defibrilator Placement Hospital Course [id number] Discharge Discharge Disposition Patient was discharged to SNF/Subacute Facility(03) Discharge Diagnoses: Miriam Lazo NP Sep 12, 2017 12:29
--- NOTE | 2017-09-13 02:30 | Discharge Summary 2 SIG ---
DATE OF ADMISSION: 09/01/2017 DATE OF DISCHARGE: 09/10/2017 CONSULTANTS: 1. Andrés Casey M.D. 2. Rachel Wallace M.D. 3. Radha Saini M.D. BRIEF HOSPITAL COURSE: The patient is a 57-year-old male with history of respiratory failure, on trach and PEG, who was sent in from residential for evaluation of defibrillator. FPC concern was pacemaker was not functioning properly. On evaluation at ED, EKG was in normal sinus rhythm. Chest x-ray showed no acute cardiopulmonary disease, there was a pacemaker noted on the left chest and a trach noted above the aby. He was admitted to [facility]. ICD interrogation showed device was functioning normally. He had an episode of sustained V-tach detected in VF zone at 230 bpm. This was appropriately detected and terminated with rapid antitachycardia pacing from the device. Device check showed normal pacing and sensing. The generator is at beginning of service. He was continued on amiodarone and beta-carmenza. He had mild leukocytosis. He was given empiric IV vancomycin and Zosyn pending culture results. Blood culture showed growth of diphtheroids, mostly a contaminant. Repeat culture did not isolate any growth. Transthoracic echocardiogram did not show any vegetations. Leukocytosis improved. Empiric antibiotic was discontinued. He was eventually discharged back to [facility] facility. FINAL DIAGNOSES: 1. Sepsis with possible bacteremia. 2. Tachycardia with arrhythmia. 3. Recent healthcare-associated pneumonia/ventilator-associated pneumonia. 4. Chronic sacrococcygeal osteomyelitis. 5. Feeding via gastrostomy tube. 6. Anemia. 7. Status post [employer] Flo pacemaker. 8. Multiple decubitus pressure ulcer, present on admission, refer to wound documentation. DISPOSITION: The patient was discharged to [facility]. DISCHARGE MEDICATIONS: Refer to medication list. Shani Moses M.D. I have been assigned to dictate discharge summary on this account and I was not involved in the patient's management. Miriam Lazo N.P. DR: Ke JOB#: [id number] CC: DEMAR
== END 2017-09-10 02:55 | DRG 720 ==
LOC: EDSEX 10:45 → EDBD 10:45 → EMR 11:50 → EDBEDREQ 11:57 → 2W 12:24 → EDBEDREQ 12:47 → 2W 09-04 09:40
PROC: 5A1955Z Respiratory Ventilation, Greater than 96 Consecutive Hours (ICD-10-PCS; principal; 2017-09-01)
DX: A41.9 Sepsis, unspecified organism (principal); R65.21 Severe sepsis with septic shock; I47.2 Ventricular tachycardia; G93.1 Anoxic brain damage, not elsewhere classified; L89.114 Pressure ulcer of right upper back, stage 4; Z99.11 Dependence on respirator [ventilator] status; L89.154 Pressure ulcer of sacral region, stage 4; L89.514 Pressure ulcer of right ankle, stage 4; L89.814 Pressure ulcer of head, stage 4; I50.22 Chronic systolic (congestive) heart failure; J96.10 Chronic respiratory failure, unspecified whether with hypoxia or hypercapnia; E87.0 Hyperosmolality and hypernatremia; I48.0 Paroxysmal atrial fibrillation; Z93.0 Tracheostomy status; I42.9 Cardiomyopathy, unspecified; Z93.1 Gastrostomy status; D64.9 Anemia, unspecified; Z95.810 Presence of automatic (implantable) cardiac defibrillator; Z86.74 Personal history of sudden cardiac arrest; M86.68 Other chronic osteomyelitis, other site; R64 Cachexia; Z68.24 Body mass index [BMI] 24.0-24.9, adult
CPT/HCPCS: 36415; 71010; 80053; 80069; 80202; 81003; 82270; 82550; 82553; 82607; 82746; 83540; 83550; 83605; 83615; 83735; 83880; 84100; 84443; 84484; 85007; 85025; 85044; 85060; 85610; 85651; 85730; 86140; 87040; 87070; 87081; 87181; 87205; 93005; 93306; 93970; 94002; 94003; 94664; 99285

== ENCOUNTER 2017-11-27 21:09 | Inpatient (IN) | payer OTHER ==
[~2017-11-27] VITALS: Ht 172.7 cm; Wt 66.0 kg
[~2017-11-27 21:09] MED LIST changes: +ACETAMINOPHEN120 MG GT; +ATIVAN0.5 MG GT; +CHLORHEXIDINE118 M1 TP; +MULTIVITAMINS1 EAC8 GT; +NORCO 5-325 TA1 EAC1 ORAL; +UTI-STAT L3875 MG/31 GT
[2017-11-27 21:44] VITALS: BP 100/58
[2017-11-27 22:02] LABS: ANION GAP 5 mmol/L (5-15); BLOOD UREA NITROGEN 58 mg/dL (7-18); CALCIUM 9.3 MG/DL (8.5-10.1); CARBON DIOXIDE 30 MMOL/L (21-32); CHLORIDE 118 MMOL/L (98-107); CREATININE 1.1 MG/DL (0.55-1.30); POTASSIUM 4.9 MMOL/L (3.5-5.1); SODIUM 153 MMOL/L (136-145)
[2017-11-27 22:03] LABS: HEMATOCRIT 25.2 % (42.0-52.0); HEMOGLOBIN 7.1 G/DL (14.2-18.0); MEAN CORPUSCULAR VOLUME 92 FL (80-99); PLATELET COUNT 358 K/UL (150-450); RED BLOOD COUNT 2.74 M/UL (4.70-6.10); RED CELL DISTRIBUTION WIDTH 16.4 % (11.6-14.8); WHITE BLOOD COUNT 12.4 K/UL (4.8-10.8)
[2017-11-27 22:07] LABS: ALANINE AMINOTRANSFERASE 197 U/L (12-78); ALBUMIN 1.5 G/DL (3.4-5.0); ALBUMIN/GLOBULIN RATIO 0.2 (1.0-2.7); ALKALINE PHOSPHATASE 148 U/L (46-116); ASPARTATE AMINO TRANSFERASE 59 U/L (15-37); BILIRUBIN,TOTAL < 0.1 MG/DL (0.2-1.0)
[2017-11-27 22:19] LABS: CKMB 2.5 NG/ML (0.0-3.6)
[2017-11-27 23:34] VITALS: BP 95/59
[2017-11-27 23:46] VITALS: BP 95/54
[2017-11-28] VITALS (7 sets, daily range): BP systolic 87–129; BP diastolic 42–64
[2017-11-28] MEDS ORDERED: ALBUTEROL2.5 MG/3 M INH ×2 (00:11)
[2017-11-28] MEDS ORDERED: DOCUSATE SODIU100 MG GT (00:11)
[2017-11-28] MEDS ORDERED: FERROUS SU300 MG/52 GT (00:11)
[2017-11-28] MEDS ORDERED: ARGINAID POWDE1 EACH GT (00:11)
[2017-11-28] MEDS ORDERED: LORazepam Inj 2mg/ml 1ml IV PRN (00:15)
[2017-11-28] MEDS ORDERED: Albuterol/Ipratropium 3ml neb HHN PRN (00:15)
[2017-11-28] MEDS ORDERED: Miralax 17gm pkt ORAL PRN (00:15)
[2017-11-28] MEDS ORDERED: PRO-STAT LIQUID30 ML ORAL (00:23)
--- NOTE | 2017-11-28 03:47 | Emergency Room Report ---
History of Present Illness General Chief Complaint: Abnormal Labs Source: Medical Record, EMS Present Illness HPI Patient presents by paramedics for reports of low hemoglobin count Patient is tachycardic on a ventilator Patient himself is nonverbal this does limit the history of present illness There was no reports of vomiting blood or blood in stool Patient is chronically ill and debilitated Patient has history of previous anemia There was no reports of fall or trauma Allergies: Coded Allergies: No Known Allergies (Unverified , 03/07/17) Patient History Limited by: medical condition Past Medical History: see triage record Pertinent Family History: unable to obtain Reviewed Nursing Documentation: PMH: Agreed, PSxH: Agreed Nursing Documentation-PMH Past Medical History Deferred: No Family Available Hx Cardiac Problems: Yes - Afib; Cardiomyapathy Hx Hypertension: Yes - Anemia Hx Pacemaker: Yes - Defibrillator Hx COPD: Yes - Resp failure, vent dep.. PNA Hx Diabetes: No Hx Gastrointestinal Problems: Yes - GT; Cirrhosis Hx Neurological Problems: Yes - ENCEPHALOPATHY Hx Cerebrovascular Accident: Yes Hx Transient Ischemic Attacks: Yes Hx Dementia: Yes Hx Seizures: Yes Review of Systems All Other Systems: limited - Other than the ones mentioned in the history of present illness all others are reviewed however they do stay limited due to the patient's mental status Physical Exam Vital Signs Date Time Temp Pulse Resp B/P (MAP) Pulse Ox O2 Delivery O2 Flow Rate FiO2 11/27/17 21:12 98.2 120 15 96/48 100 Mechanical Ventilator 5.0 40 Sp02 EP Interpretation: reviewed, normal General Appearance: mild distress - appears ill Head: normocephalic, atraumatic Eyes: bilateral eye PERRL, bilateral eye EOMI ENT: dry mucus membranes Neck: supple, other - tracheostomy in place Respiratory: no respiratory distress, no retraction, no accessory muscle use, crackles - of lower lobes Cardiovascular #1: no edema, tachycardia Gastrointestinal: non tender, soft, other - feeding tube in place Musculoskeletal: other - Patient contracted and chronically debilitated Neurologic: responsive - to physical stimuli Skin: normal color, no rash Lymphatic: no adenopathy Medical Decision Making Diagnostic Impression: Primary Impression: Abnormal laboratory test result Additional Impression: Anemia ER Course Multiple differentials considered Patient's complex requiring blood work and imaging study At this time hemoglobin is significantly low No signs of any obvious acute hemorrhage Given the tachycardia and the presentation blood transfusion was ordered to the emergency room and patient admitted for further care Labs Test 11/27/17 21:35 White Blood Count 12.4 K/UL (4.8-10.8) Red Blood Count 2.74 M/UL (4.70-6.10) Hemoglobin 7.1 G/DL (14.2-18.0) Hematocrit 25.2 % (42.0-52.0) Mean Corpuscular Volume 92 FL (80-99) Mean Corpuscular Hemoglobin 25.8 PG (27.0-31.0) Mean Corpuscular Hemoglobin Concent 28.0 G/DL (32.0-36.0) Red Cell Distribution Width 16.4 % (11.6-14.8) Platelet Count 358 K/UL (150-450) Mean Platelet Volume 6.6 FL (6.5-10.1) Neutrophils (%) (Auto) % (45.0-75.0) Lymphocytes (%) (Auto) % (20.0-45.0) Monocytes (%) (Auto) % (1.0-10.0) Eosinophils (%) (Auto) % (0.0-3.0) Basophils (%) (Auto) % (0.0-2.0) Differential Total Cells Counted 100 Neutrophils % (Manual) 70 % (45-75) Lymphocytes % (Manual) 18 % (20-45) Monocytes % (Manual) 4 % (1-10) Eosinophils % (Manual) 6 % (0-3) Basophils % (Manual) 0 % (0-2) Band Neutrophils 2 % (0-8) Platelet Estimate Adequate Platelet Morphology Normal Hypochromasia 2+ Anisocytosis 1+ Microcytosis 1+ Sodium Level 153 MMOL/L (136-145) Potassium Level 4.9 MMOL/L (3.5-5.1) Chloride Level 118 MMOL/L (98-107) Carbon Dioxide Level 30 MMOL/L (21-32) Anion Gap 5 mmol/L (5-15) Blood Urea Nitrogen 58 mg/dL (7-18) Creatinine 1.1 MG/DL (0.55-1.30) Estimat Glomerular Filtration Rate > 60 mL/min (>60) Glucose Level 99 MG/DL (74-106) Calcium Level 9.3 MG/DL (8.5-10.1) Total Bilirubin < 0.1 MG/DL (0.2-1.0) Aspartate Amino Transf (AST/SGOT) 59 U/L (15-37) Alanine Aminotransferase (ALT/SGPT) 197 U/L (12-78) Alkaline Phosphatase 148 U/L (46-116) Total Creatine Kinase 155 U/L (26-308) Creatine Kinase MB 2.5 NG/ML (0.0-3.6) Creatine Kinase MB Relative Index 1.6 Troponin I 0.005 ng/mL (0.000-0.056) Total Protein 8.1 G/DL (6.4-8.2) Albumin 1.5 G/DL (3.4-5.0) Globulin 6.6 g/dL Albumin/Globulin Ratio 0.2 (1.0-2.7) Rhythm Strip Diag. Results EP Interpretation: yes Rate: 110 Rhythm: no PVC's, no ectopy, other - sinus tach Chest X-Ray Diagnostic Results Chest X-Ray Diagnostic Results : Chest X-Ray Ordered: Yes # of Views/Limited/Complete: 1 View Indication: Shortness of Breath Interpretation: no consolidation, no effusion, no pneumothorax Impression: No acute disease Electronically Signed by: Kayla Parkinson DO Last Vital Signs Date Time Temp Pulse Resp B/P (MAP) Pulse Ox O2 Delivery O2 Flow Rate FiO2 11/28/17 02:36 118 18 40 11/28/17 00:35 99.4 96/63 100 Mechanical Ventilator 5.0 Status: improved Disposition: ADMITTED INPATIENT Condition: Serious Referrals: ODETTE SMILEY (PCP) KAYLA PARKINSON D.O. Nov 28, 2017 03:47
[2017-11-28] MEDS ORDERED: Vancomycin 1gm inj IVPB ONE (04:52)
[2017-11-28] MEDS: Vancomycin 1 GM in D5W 275 ML IVPB SCH ×2 (05:00→15:43)
[2017-11-28] MEDS: Acetaminophen 650mg/20.3ml GT PRN ×2 (05:08→21:36)
[2017-11-28] MEDS: Heparin 5000 units/ml inj SUBQ SCH ×2 (09:00→21:37)
[2017-11-28] MEDS ORDERED: Furosemide 40mg tab GT SCH (09:00)
[2017-11-28] MEDS: Amiodarone 200mg tab GT SCH (09:08)
[2017-11-28] MEDS: levETIRAcetam 500mg/5ml Liquid GT SCH ×2 (09:08→21:36)
[2017-11-28] MEDS: Pantoprazole Inj IV SCH (09:08)
[2017-11-28 10:14] LABS: BASOPHILS % (AUTO) 0.2 % (0.0-2.0); HEMATOCRIT 32.7 % (42.0-52.0); LYMPHOCYTES % (AUTO) 12.2 % (20.0-45.0); MEAN CORPUSCULAR VOLUME 91 FL (80-99); MONOCYTES % (AUTO) 6.2 % (1.0-10.0); NEUTROPHILS % (AUTO) 78.3 % (45.0-75.0); PLATELET COUNT 351 K/UL (150-450); RED BLOOD COUNT 3.61 M/UL (4.70-6.10); WHITE BLOOD COUNT 11.7 K/UL (4.8-10.8)
[2017-11-28 10:20] LABS: HEMOGLOBIN 10.3 G/DL (14.2-18.0)
[2017-11-28 11:11] LABS: ALBUMIN 1.5 G/DL (3.4-5.0); ANION GAP 8 mmol/L (5-15); BLOOD UREA NITROGEN 47 mg/dL (7-18); CALCIUM 9.4 MG/DL (8.5-10.1); CARBON DIOXIDE 27 MMOL/L (21-32); CHLORIDE 117 MMOL/L (98-107); CREATININE 1.1 MG/DL (0.55-1.30); PHOSPHORUS 3.4 MG/DL (2.5-4.9); POTASSIUM 4.1 MMOL/L (3.5-5.1); SODIUM 152 MMOL/L (136-145)
--- NOTE | 2017-11-28 12:21 | History and Physical ---
History of Present Illness General Date patient seen: Nov 28, 2017 Reason for Hospitalization: Abnormal Labs Present Illness HPI 57 year old male with hx of endstage heart disease, ICD, trach, PEG, cachecxia, chronic encephalopathy, presented by paramedics for reports of low hemoglobin count Patient was tachycardic , Patient is chronically ill and debilitated. He is admitted to [facility] for further work up. Allergies: Coded Allergies: No Known Allergies (Unverified , 03/07/17) Medication History Scheduled Amino Acids/Protein Hydrolys (Pro-Stat Liquid), 30 ML ORAL THREE TIMES A DAY, ( Reported) Amiodarone Hcl (Amiodarone Hcl), 200 MG GT DAILY, (Reported) Arginine/Ascorbate Sod/Coy AC (Arginaid Powder), 1 EACH GT TWICE A DAY, ( Reported) Ascorbic Acid* (Vitamin C*), 500 MG GT DAILY, (Reported) Aspirin* (Aspir 81*), 81 MG GT DAILY, (Reported) Carvedilol (Coreg), 3.125 MG GT Q12HR Cran/Vitc/Mannose/Inulin/Brom (Uti-Stat Liquid), 30 ML GT BID, (Reported) Docusate Sodium* (Docusate Sodium*), 100 MG GT DAILY, (Reported) Ferrous Sulfate (Ferrous Sulfate), 330 MG GT DAILY, (Reported) Folic Acid* (Folic Acid*), 1 MG ORAL DAILY, (Reported) Furosemide* (Lasix*), 60 MG GT DAILY, (Reported) Heparin Sod (Porcine) (Heparin Sodium*), 5,000 UNITS SUBQ EVERY 12 HOURS, ( Reported) Lactulose (Lactulose*), 30 ML GT BID, (Reported) Levetiracetam (Keppra), 500 MG GT Q12HR Lisinopril* (Lisinopril*), 10 MG GT DAILY, (Reported) Lorazepam* (Ativan*), 0.5 MG GT PRN, (Reported) Multivitamin With Minerals (Multivitamins With Minerals*), 1 TAB GT DAILY, ( Reported) Omeprazole (Omeprazole), 40 MG GT DAILY, (Reported) Polyethylene Glycol 3350* (Miralax*), 17 GM GT PRN, (Reported) Potassium (Potassium), 40 MG GT BID, (Reported) Tramadol Hcl* (Ultram*), 50 MG GT DAILY, (Reported) Warfarin Sod (Coumadin*), 8 MG GT DAILY, (Reported) Zinc Sulfate (Zinc Sulfate*), 220 MG ORAL DAILY, (Reported) Scheduled PRN Acetaminophen* (Tylenol*), 325 MG GT Q4H PRN for Mild Pain/Temp > 100.5, ( Reported) Albuterol Sulfate* (Albuterol Sulfate Hhn*), 3 ML INH Q3HR PRN for Shortness of Breath, (Reported) Albuterol Sulfate* (Albuterol Sulfate Hhn*), 3 ML INH Q6H PRN for Shortness of Breath, (Reported) Clonidine Hcl (Clonidine Hcl), 0.1 MG PO Q6HR PRN for For High Blood Pressure, ( Reported) Hydrocodone Bit/Acetaminophen 5-325* ([place] 5-325 Tablet*), 1 TAB GT Q4H PRN for For Pain, (Reported) Hydrocodone Bit/Acetaminophen 5-325* ([place] 5-325 Tablet*), 1 TAB ORAL Q4H PRN for For Pain, (Reported) Ondansetron* (Zofran*), 4 MG GT Q6H PRN for Nausea & Vomiting, (Reported) Polyethylene Glycol 3350* (Miralax*), 17 GM GT DAILY PRN for Constipation, ( Reported) Tramadol Hcl* (Ultram*), 50 MG GT Q6H PRN for For Pain, (Reported) Miscellaneous Medications Chlorhexidine Gluconate (Chlorhexidine Gluconate), 15 ML TP, (Reported) Lactose-Reduced Food/Fiber (Jevity 1.2 Simone Liquid), 1,300 ML GT, (Reported) Patient History Healthcare decision maker Resuscitation status Full Code Advanced Directive on File Yes Past Medical/Surgical History Past Medical/Surgical History: (1) AICD (automatic cardioverter/defibrillator) present (2) Sepsis (3) EF of 30 (4) Feeding by G-tube Review of Systems All Other Systems: negative except mentioned in HPI Physical Exam HEENT: normocephalic, atraumatic Neck: non-tender Respiratory/Chest: chest wall non-tender Breasts: no masses Cardiovascular/Chest: normal rate Abdomen: normal bowel sounds, non tender Genitourinary/Rectal: normal genital exam Extremities: other - contractues Neurologic: other - decubiti ulcers. Last 24 Hour Vital Signs Date Time Temp Pulse Resp B/P (MAP) Pulse Ox O2 Delivery O2 Flow Rate FiO2 11/28/17 11:05 117 16 40 11/28/17 09:00 114 104/64 11/28/17 08:44 119 22 40 11/28/17 08:00 98.4 100 20 104/64 100 Mechanical Ventilator 5.0 40 11/28/17 07:54 99 11/28/17 07:23 120 17 40 11/28/17 05:38 101.5 11/28/17 05:17 123 17 40 11/28/17 04:00 101 11/28/17 04:00 99.9 101 20 87/55 100 Mechanical Ventilator 40 11/28/17 04:00 5.0 40 11/28/17 02:36 118 18 40 11/28/17 00:43 116 20 40 11/28/17 00:35 99.4 114 17 96/63 100 Mechanical Ventilator 5.0 40 11/28/17 00:30 117 11/28/17 00:25 99.4 114 17 96/63 100 Mechanical Ventilator 5.0 40 11/28/17 00:11 5.0 40 11/27/17 23:46 99.4 120 21 95/54 100 Mechanical Ventilator 5.0 40 11/27/17 23:35 99.9 123 18 11/27/17 23:34 99.9 123 17 95/59 100 Mechanical Ventilator 5.0 40 11/27/17 22:54 118 17 40 11/27/17 21:44 98.2 124 22 100/58 100 Mechanical Ventilator 5.0 40 11/27/17 21:25 120 18 40 11/27/17 21:12 98.2 120 15 96/48 100 Mechanical Ventilator 5.0 40 Intake and Output 11/27/17 11/28/17 19:00 07:00 Intake Total 805.0 ml Output Total 820 ml Balance -15.0 ml Intake Oral 0 ml Free Water 30 ml IV Total 275.0 ml Blood Product 500 ml Output Urine Total 820 ml # Bowel Movements 1 Laboratory Tests Test 11/27/17 21:35 11/28/17 09:40 White Blood Count 12.4 K/UL (4.8-10.8) H 11.7 K/UL (4.8-10.8) H Red Blood Count 2.74 M/UL (4.70-6.10) L 3.61 M/UL (4.70-6.10) L Hemoglobin 7.1 G/DL (14.2-18.0) L 10.3 G/DL (14.2-18.0) #L Hematocrit 25.2 % (42.0-52.0) L 32.7 % (42.0-52.0) L Mean Corpuscular Volume 92 FL (80-99) 91 FL (80-99) Mean Corpuscular Hemoglobin 25.8 PG (27.0-31.0) L 28.5 PG (27.0-31.0) Mean Corpuscular Hemoglobin Concent 28.0 G/DL (32.0-36.0) L 31.5 G/DL (32.0-36.0) L Red Cell Distribution Width 16.4 % (11.6-14.8) H 16.0 % (11.6-14.8) H Platelet Count 358 K/UL (150-450) 351 K/UL (150-450) Mean Platelet Volume 6.6 FL (6.5-10.1) 7.1 FL (6.5-10.1) Neutrophils (%) (Auto) % (45.0-75.0) 78.3 % (45.0-75.0) H Lymphocytes (%) (Auto) % (20.0-45.0) 12.2 % (20.0-45.0) L Monocytes (%) (Auto) % (1.0-10.0) 6.2 % (1.0-10.0) Eosinophils (%) (Auto) % (0.0-3.0) 3.0 % (0.0-3.0) Basophils (%) (Auto) % (0.0-2.0) 0.2 % (0.0-2.0) Differential Total Cells Counted 100 Neutrophils % (Manual) 70 % (45-75) Lymphocytes % (Manual) 18 % (20-45) L Monocytes % (Manual) 4 % (1-10) Eosinophils % (Manual) 6 % (0-3) H Basophils % (Manual) 0 % (0-2) Band Neutrophils 2 % (0-8) Platelet Estimate Adequate Platelet Morphology Normal Hypochromasia 2+ Anisocytosis 1+ Microcytosis 1+ Sodium Level 153 MMOL/L (136-145) H 152 MMOL/L (136-145) H Potassium Level 4.9 MMOL/L (3.5-5.1) 4.1 MMOL/L (3.5-5.1) Chloride Level 118 MMOL/L (98-107) H 117 MMOL/L (98-107) H Carbon Dioxide Level 30 MMOL/L (21-32) 27 MMOL/L (21-32) Anion Gap 5 mmol/L (5-15) 8 mmol/L (5-15) Blood Urea Nitrogen 58 mg/dL (7-18) H 47 mg/dL (7-18) H Creatinine 1.1 MG/DL (0.55-1.30) 1.1 MG/DL (0.55-1.30) Estimat Glomerular Filtration Rate > 60 mL/min (>60) > 60 mL/min (>60) Glucose Level 99 MG/DL (74-106) 91 MG/DL (74-106) Calcium Level 9.3 MG/DL (8.5-10.1) 9.4 MG/DL (8.5-10.1) Total Bilirubin < 0.1 MG/DL (0.2-1.0) L Aspartate Amino Transf (AST/SGOT) 59 U/L (15-37) H Alanine Aminotransferase (ALT/SGPT) 197 U/L (12-78) H Alkaline Phosphatase 148 U/L (46-116) H Total Creatine Kinase 155 U/L (26-308) Creatine Kinase MB 2.5 NG/ML (0.0-3.6) Creatine Kinase MB Relative Index 1.6 Troponin I 0.005 ng/mL (0.000-0.056) Total Protein 8.1 G/DL (6.4-8.2) Albumin 1.5 G/DL (3.4-5.0) L 1.5 G/DL (3.4-5.0) L Globulin 6.6 g/dL Albumin/Globulin Ratio 0.2 (1.0-2.7) L Phosphorus Level 3.4 MG/DL (2.5-4.9) Height (Feet): 5 Height (Inches): 8.00 Weight (Pounds): 116 Medications Current Medications Medications (Trade) Dose Ordered Sig/Tameka Route PRN Reason Start Time Stop Time Status Last Admin Dose Admin Acetaminophen (Tylenol) 650 mg Q4H PRN GT FEVER 11/28/17 02:15 12/28/17 02:14 11/28/17 05:08 Albuterol/ Ipratropium (Albuterol/ Ipratropium) 3 ml Q4H PRN HHN Shortness of Breath 11/28/17 00:15 12/03/17 00:14 Amiodarone HCl (Cordarone) 200 mg DAILY GT 11/28/17 09:00 12/28/17 08:59 11/28/17 09:08 Carvedilol (Coreg) 3.125 mg Q12HR GT 11/28/17 09:00 12/28/17 08:59 Dextrose (Dextrose 50%) STAT PRN IV Hypoglycemia 11/28/17 00:15 12/28/17 00:14 Furosemide (Lasix) 60 mg DAILY GT 11/28/17 09:00 12/28/17 08:59 11/28/17 09:08 Heparin Sodium (Porcine) (Heparin 5000 units/ml) 5,000 units EVERY 12 HOURS SUBQ 11/28/17 09:00 12/28/17 08:59 Levetiracetam (Keppra) 500 mg Q12HR GT 11/28/17 09:00 12/28/17 08:59 11/28/17 09:08 Lorazepam (Ativan 2mg/ml 1ml) 2 mg Q2H PRN IV For Anxiety 11/28/17 00:15 12/05/17 00:14 Morphine Sulfate (Morphine Sulfate) 4 mg Q4H PRN IVP Severe Pain (Pain Scale 7-10) 11/28/17 00:15 12/05/17 00:14 Ondansetron HCl (Zofran) 4 mg Q6H PRN IVP Nausea & Vomiting 11/28/17 00:15 12/28/17 00:14 Pantoprazole (Protonix) 40 mg DAILY IV 11/28/17 09:00 12/28/17 08:59 11/28/17 09:08 Polyethylene Glycol (Miralax) 17 gm DAILYPRN PRN ORAL Constipation 11/28/17 00:15 12/28/17 00:14 Vancomycin HCl (Vanco rx to dose) 1 ea DAILY PRN MISC PER PROTOCOL 11/28/17 00:30 12/28/17 00:29 Vancomycin HCl 1 gm/Dextrose 275 ml @ 183.3 mls/ hr Q12H IVPB 11/28/17 04:00 12/03/17 03:59 11/28/17 05:00 Assessment/Plan Problem List: (1) MDRO (multiple drug resistant organisms) resistance ICD Codes: Z16.35 - Resistance to multiple antimicrobial drugs SNOMED: 543239654 (2) Anemia ICD Codes: D64.9 - Anemia, unspecified SNOMED: 403286245 (3) Sepsis ICD Codes: A41.9 - Sepsis, unspecified organism SNOMED: 07458025 (4) AICD (automatic cardioverter/defibrillator) present ICD Codes: Z95.810 - Presence of automatic (implantable) cardiac defibrillator SNOMED: 16549040, 471106121 (5) EF of 30 (6) Feeding by G-tube ICD Codes: Z93.1 - Gastrostomy status SNOMED: 155134459, 266697632 Respiratory: monitor respiratory rate Cardiac: continue pressors, continue to monitor HR/BP Renal: F/U I&O Infectious Disease: check cultures Gastrointestinal: continue feedings/current rate Endocrine: monitor blood sugar, check TSH Hematologic: monitor H/H Neurologic: PRN Ativan Affect: PRN ativan Prophylaxis: Heparin Notes Reviewed: cardio, renal Discussed with: nurses, upper caser ODETTE SMILEY Nov 28, 2017 12:21
--- NOTE | 2017-11-28 13:18 | Cardiology Report ---
APPROVED REPORT EKG Measurement Heart [id number] [place] [id number] Sinus tachycardia Otherwise normal ECG
--- NOTE | 2017-11-28 13:50 | Diagnostic Imaging Report ---
Indication: Chest pain Technique: XRAY Chest 1v Comparison: 09/05/2017 Findings: Heart size and mediastinal contours are stable. Tracheostomy tube again noted. Left chest dual-lead AICD unchanged in position. There is unchanged linear scarring in the right midlung. There is no new definite focal airspace consolidation. No pleural effusion. No pneumothorax. No acute osseous abnormality seen. Impression: No radiographic evidence of acute cardiopulmonary disease. Unchanged linear atelectasis/scarring in the right lung. No new focal consolidation. Study was obtained via the emergency department however patient admitted to the hospital at time of the dictation of the final report.
--- NOTE | 2017-11-28 15:21 | Consultation ---
History of Present Illness General Date patient seen: Nov 28, 2017 Chief Complaint: Abnormal Labs Reason for Consultation: left hip wound Present Illness HPI 57 M with multiple medical comorbidities as noted below and in history presented with abnormal labs/anemia. Currently in [facility] for work up, care and management. During admission noted to have a foul smelling, necrotic left hip decubitus ulcer with serous drainage. surgery called to evaluate wound and assist with wound care/management. Allergies: Coded Allergies: No Known Allergies (Unverified , 03/07/17) Medication History Scheduled Amino Acids/Protein Hydrolys (Pro-Stat Liquid), 30 ML ORAL THREE TIMES A DAY, ( Reported) Amiodarone Hcl (Amiodarone Hcl), 200 MG GT DAILY, (Reported) Arginine/Ascorbate Sod/Coy AC (Arginaid Powder), 1 EACH GT TWICE A DAY, ( Reported) Ascorbic Acid* (Vitamin C*), 500 MG GT DAILY, (Reported) Aspirin* (Aspir 81*), 81 MG GT DAILY, (Reported) Carvedilol (Coreg), 3.125 MG GT Q12HR Cran/Vitc/Mannose/Inulin/Brom (Uti-Stat Liquid), 30 ML GT BID, (Reported) Docusate Sodium* (Docusate Sodium*), 100 MG GT DAILY, (Reported) Ferrous Sulfate (Ferrous Sulfate), 330 MG GT DAILY, (Reported) Folic Acid* (Folic Acid*), 1 MG ORAL DAILY, (Reported) Furosemide* (Lasix*), 60 MG GT DAILY, (Reported) Heparin Sod (Porcine) (Heparin Sodium*), 5,000 UNITS SUBQ EVERY 12 HOURS, ( Reported) Lactulose (Lactulose*), 30 ML GT BID, (Reported) Levetiracetam (Keppra), 500 MG GT Q12HR Lisinopril* (Lisinopril*), 10 MG GT DAILY, (Reported) Lorazepam* (Ativan*), 0.5 MG GT PRN, (Reported) Multivitamin With Minerals (Multivitamins With Minerals*), 1 TAB GT DAILY, ( Reported) Omeprazole (Omeprazole), 40 MG GT DAILY, (Reported) Polyethylene Glycol 3350* (Miralax*), 17 GM GT PRN, (Reported) Potassium (Potassium), 40 MG GT BID, (Reported) Tramadol Hcl* (Ultram*), 50 MG GT DAILY, (Reported) Warfarin Sod (Coumadin*), 8 MG GT DAILY, (Reported) Zinc Sulfate (Zinc Sulfate*), 220 MG ORAL DAILY, (Reported) Scheduled PRN Acetaminophen* (Tylenol*), 325 MG GT Q4H PRN for Mild Pain/Temp > 100.5, ( Reported) Albuterol Sulfate* (Albuterol Sulfate Hhn*), 3 ML INH Q3HR PRN for Shortness of Breath, (Reported) Albuterol Sulfate* (Albuterol Sulfate Hhn*), 3 ML INH Q6H PRN for Shortness of Breath, (Reported) Clonidine Hcl (Clonidine Hcl), 0.1 MG PO Q6HR PRN for For High Blood Pressure, ( Reported) Hydrocodone Bit/Acetaminophen 5-325* ([place] 5-325 Tablet*), 1 TAB GT Q4H PRN for For Pain, (Reported) Hydrocodone Bit/Acetaminophen 5-325* ([place] 5-325 Tablet*), 1 TAB ORAL Q4H PRN for For Pain, (Reported) Ondansetron* (Zofran*), 4 MG GT Q6H PRN for Nausea & Vomiting, (Reported) Polyethylene Glycol 3350* (Miralax*), 17 GM GT DAILY PRN for Constipation, ( Reported) Tramadol Hcl* (Ultram*), 50 MG GT Q6H PRN for For Pain, (Reported) Miscellaneous Medications Chlorhexidine Gluconate (Chlorhexidine Gluconate), 15 ML TP, (Reported) Lactose-Reduced Food/Fiber (Jevity 1.2 Simone Liquid), 1,300 ML GT, (Reported) Patient History Limited by: medical condition History Provided By: Medical Record Healthcare decision maker Resuscitation status Full Code Advanced Directive on File Yes Family History Family History: (1) Transaminitis (2) Healthcare-associated pneumonia (3) Atrial fibrillation (4) Chronic respiratory acidosis (5) Leukocytosis (6) Acute on chronic respiratory failure (7) Septic shock (8) VT (ventricular tachycardia) (9) Bacteremia (10) Anemia (11) Abnormal laboratory test result (12) Sepsis (13) Feeding by G-tube (14) EF of 30 (15) MDRO (multiple drug resistant organisms) resistance Review of Systems ROS Narrative cannot obtain given patients current medical condition Physical Exam General Appearance: no apparent distress, alert, thin Lines, tubes and drains: trach HEENT: atraumatic Neck: normal inspection, trach Respiratory/Chest: normal breath sounds, on vent Cardiovascular/Chest: pacemaker/AICD Abdomen: soft, no organomegaly, no mass Extremities: other - contracted cachetic Skin Exam: other - left hip with large 15cm x 18cm plus necrotic unstageable pressure ulcer with fibrinous debris, necrotic tissue, and foul smell. no active infection noted. Neurologic: alert Last 24 Hour Vital Signs Date Time Temp Pulse Resp B/P (MAP) Pulse Ox O2 Delivery O2 Flow Rate FiO2 11/28/17 12:34 110 18 40 11/28/17 12:00 98.2 111 20 111/64 96 Mechanical Ventilator 5.0 40 11/28/17 12:00 107 11/28/17 12:00 5.0 40 11/28/17 11:05 117 16 40 11/28/17 09:00 114 104/64 11/28/17 08:44 119 22 40 11/28/17 08:00 98.4 100 20 104/64 100 Mechanical Ventilator 5.0 40 11/28/17 08:00 5.0 40 11/28/17 07:54 99 11/28/17 07:23 120 17 40 11/28/17 05:38 101.5 11/28/17 05:17 123 17 40 11/28/17 04:00 101 11/28/17 04:00 99.9 101 20 87/55 100 Mechanical Ventilator 40 11/28/17 04:00 5.0 40 11/28/17 02:36 118 18 40 11/28/17 00:43 116 20 40 11/28/17 00:35 99.4 114 17 96/63 100 Mechanical Ventilator 5.0 40 11/28/17 00:30 117 11/28/17 00:25 99.4 114 17 96/63 100 Mechanical Ventilator 5.0 40 11/28/17 00:11 5.0 40 11/27/17 23:46 99.4 120 21 95/54 100 Mechanical Ventilator 5.0 40 11/27/17 23:35 99.9 123 18 11/27/17 23:34 99.9 123 17 95/59 100 Mechanical Ventilator 5.0 40 11/27/17 22:54 118 17 40 11/27/17 21:44 98.2 124 22 100/58 100 Mechanical Ventilator 5.0 40 11/27/17 21:25 120 18 40 11/27/17 21:12 98.2 120 15 96/48 100 Mechanical Ventilator 5.0 40 Intake and Output 11/27/17 11/28/17 19:00 07:00 Intake Total 805.0 ml Output Total 820 ml Balance -15.0 ml Intake Oral 0 ml Free Water 30 ml IV Total 275.0 ml Blood Product 500 ml Output Urine Total 820 ml # Bowel Movements 1 Laboratory Tests Test 11/27/17 21:35 11/28/17 09:40 White Blood Count 12.4 K/UL (4.8-10.8) H 11.7 K/UL (4.8-10.8) H Red Blood Count 2.74 M/UL (4.70-6.10) L 3.61 M/UL (4.70-6.10) L Hemoglobin 7.1 G/DL (14.2-18.0) L 10.3 G/DL (14.2-18.0) #L Hematocrit 25.2 % (42.0-52.0) L 32.7 % (42.0-52.0) L Mean Corpuscular Volume 92 FL (80-99) 91 FL (80-99) Mean Corpuscular Hemoglobin 25.8 PG (27.0-31.0) L 28.5 PG (27.0-31.0) Mean Corpuscular Hemoglobin Concent 28.0 G/DL (32.0-36.0) L 31.5 G/DL (32.0-36.0) L Red Cell Distribution Width 16.4 % (11.6-14.8) H 16.0 % (11.6-14.8) H Platelet Count 358 K/UL (150-450) 351 K/UL (150-450) Mean Platelet Volume 6.6 FL (6.5-10.1) 7.1 FL (6.5-10.1) Neutrophils (%) (Auto) % (45.0-75.0) 78.3 % (45.0-75.0) H Lymphocytes (%) (Auto) % (20.0-45.0) 12.2 % (20.0-45.0) L Monocytes (%) (Auto) % (1.0-10.0) 6.2 % (1.0-10.0) Eosinophils (%) (Auto) % (0.0-3.0) 3.0 % (0.0-3.0) Basophils (%) (Auto) % (0.0-2.0) 0.2 % (0.0-2.0) Differential Total Cells Counted 100 Neutrophils % (Manual) 70 % (45-75) Lymphocytes % (Manual) 18 % (20-45) L Monocytes % (Manual) 4 % (1-10) Eosinophils % (Manual) 6 % (0-3) H Basophils % (Manual) 0 % (0-2) Band Neutrophils 2 % (0-8) Platelet Estimate Adequate Platelet Morphology Normal Hypochromasia 2+ Anisocytosis 1+ Microcytosis 1+ Sodium Level 153 MMOL/L (136-145) H 152 MMOL/L (136-145) H Potassium Level 4.9 MMOL/L (3.5-5.1) 4.1 MMOL/L (3.5-5.1) Chloride Level 118 MMOL/L (98-107) H 117 MMOL/L (98-107) H Carbon Dioxide Level 30 MMOL/L (21-32) 27 MMOL/L (21-32) Anion Gap 5 mmol/L (5-15) 8 mmol/L (5-15) Blood Urea Nitrogen 58 mg/dL (7-18) H 47 mg/dL (7-18) H Creatinine 1.1 MG/DL (0.55-1.30) 1.1 MG/DL (0.55-1.30) Estimat Glomerular Filtration Rate > 60 mL/min (>60) > 60 mL/min (>60) Glucose Level 99 MG/DL (74-106) 91 MG/DL (74-106) Calcium Level 9.3 MG/DL (8.5-10.1) 9.4 MG/DL (8.5-10.1) Total Bilirubin < 0.1 MG/DL (0.2-1.0) L Aspartate Amino Transf (AST/SGOT) 59 U/L (15-37) H Alanine Aminotransferase (ALT/SGPT) 197 U/L (12-78) H Alkaline Phosphatase 148 U/L (46-116) H Total Creatine Kinase 155 U/L (26-308) Creatine Kinase MB 2.5 NG/ML (0.0-3.6) Creatine Kinase MB Relative Index 1.6 Troponin I 0.005 ng/mL (0.000-0.056) Total Protein 8.1 G/DL (6.4-8.2) Albumin 1.5 G/DL (3.4-5.0) L 1.5 G/DL (3.4-5.0) L Globulin 6.6 g/dL Albumin/Globulin Ratio 0.2 (1.0-2.7) L Phosphorus Level 3.4 MG/DL (2.5-4.9) Height (Feet): 5 Height (Inches): 8.00 Weight (Pounds): 116 Medications Current Medications Medications (Trade) Dose Ordered Sig/Tameka Route PRN Reason Start Time Stop Time Status Last Admin Dose Admin Acetaminophen (Tylenol) 650 mg Q4H PRN GT FEVER 11/28/17 02:15 12/28/17 02:14 11/28/17 05:08 Albuterol/ Ipratropium (Albuterol/ Ipratropium) 3 ml Q4H PRN HHN Shortness of Breath 11/28/17 00:15 12/03/17 00:14 Amiodarone HCl (Cordarone) 200 mg DAILY GT 11/28/17 09:00 12/28/17 08:59 11/28/17 09:08 Carvedilol (Coreg) 3.125 mg Q12HR GT 11/28/17 09:00 12/28/17 08:59 Dextrose 1,000 ml @ 150 mls/hr Q6H40M IV 11/28/17 13:00 12/28/17 12:59 11/28/17 12:31 Dextrose (Dextrose 50%) STAT PRN IV Hypoglycemia 11/28/17 00:15 12/28/17 00:14 Furosemide (Lasix) 60 mg DAILY GT 11/28/17 09:00 12/28/17 08:59 11/28/17 09:08 Heparin Sodium (Porcine) (Heparin 5000 units/ml) 5,000 units EVERY 12 HOURS SUBQ 11/28/17 09:00 12/28/17 08:59 Levetiracetam (Keppra) 500 mg Q12HR GT 11/28/17 09:00 12/28/17 08:59 11/28/17 09:08 Lorazepam (Ativan 2mg/ml 1ml) 2 mg Q2H PRN IV For Anxiety 11/28/17 00:15 12/05/17 00:14 Morphine Sulfate (Morphine Sulfate) 4 mg Q4H PRN IVP Severe Pain (Pain Scale 7-10) 11/28/17 00:15 12/05/17 00:14 Ondansetron HCl (Zofran) 4 mg Q6H PRN IVP Nausea & Vomiting 11/28/17 00:15 12/28/17 00:14 Pantoprazole (Protonix) 40 mg DAILY IV 11/28/17 09:00 12/28/17 08:59 11/28/17 09:08 Polyethylene Glycol (Miralax) 17 gm DAILYPRN PRN ORAL Constipation 11/28/17 00:15 12/28/17 00:14 Vancomycin HCl (Vanco rx to dose) 1 ea DAILY PRN MISC PER PROTOCOL 11/28/17 00:30 12/28/17 00:29 Vancomycin HCl 1 gm/Dextrose 275 ml @ 183.3 mls/ hr Q12H IVPB 11/28/17 04:00 12/03/17 03:59 11/28/17 05:00 Assessment/Plan Problem List: (1) Pressure ulcer, hip, left, unstageable Assessment & Plan: 57M multiple medical comorbidities currently here for medical care and management. noted to have left hip wound that required surgical care. evaluated at bedside and large unstageable left hip wound with necrotic tissue noted as above. fortunately does not look infected but does need some good wound care -continue with washing, cleaning, and dressings wounds for now will need debridement. given location and size unsure if able to do at bedside or may need to be done in OR. does not seem to have had wound care for some time now. will continue with wound care for a day or two and see if wound can be cleaned up at bedside or if needs to be taken to OR. will follow with recs thank you for this consultation ICD Codes: L89.220 - Pressure ulcer of left hip, unstageable SNOMED: 912483213 Status: stable Derek Dong Nov 28, 2017 15:21
--- NOTE | 2017-11-28 15:27 | Consultation ---
History of Present Illness General Date patient seen: Nov 28, 2017 Time patient seen: 15:24 Chief Complaint: Abnormal Labs Reason for Consultation: left hip wound Present Illness HPI 57 y/o M with hx of endstage heart disease s/p ICD, chronic resp failure on trach and VDRF, PEG, Afib, PNA, cirrhosis, CVA/TIA, cachexia, chronic encephalopathy/dementia, seizure disorder is brought to ED on 11/27 with symptomatic anemia (+tachycardia). Upon admission noted to have foul smelling and necrotic L hip decubitus ulcer with serous drainage. Surgery evaluated for possible debridement. No report of vomiting blood or blood in stool, fall/traumal. Patient is chronically ill and debilitated Febrile to 101.5. Luekocytosis up to 12.5, now downt o 11.7. On IV Vancomycin. Allergies: Coded Allergies: No Known Allergies (Unverified , 03/07/17) Medication History Scheduled Amino Acids/Protein Hydrolys (Pro-Stat Liquid), 30 ML ORAL THREE TIMES A DAY, ( Reported) Amiodarone Hcl (Amiodarone Hcl), 200 MG GT DAILY, (Reported) Arginine/Ascorbate Sod/Coy AC (Arginaid Powder), 1 EACH GT TWICE A DAY, ( Reported) Ascorbic Acid* (Vitamin C*), 500 MG GT DAILY, (Reported) Aspirin* (Aspir 81*), 81 MG GT DAILY, (Reported) Carvedilol (Coreg), 3.125 MG GT Q12HR Cran/Vitc/Mannose/Inulin/Brom (Uti-Stat Liquid), 30 ML GT BID, (Reported) Docusate Sodium* (Docusate Sodium*), 100 MG GT DAILY, (Reported) Ferrous Sulfate (Ferrous Sulfate), 330 MG GT DAILY, (Reported) Folic Acid* (Folic Acid*), 1 MG ORAL DAILY, (Reported) Furosemide* (Lasix*), 60 MG GT DAILY, (Reported) Heparin Sod (Porcine) (Heparin Sodium*), 5,000 UNITS SUBQ EVERY 12 HOURS, ( Reported) Lactulose (Lactulose*), 30 ML GT BID, (Reported) Levetiracetam (Keppra), 500 MG GT Q12HR Lisinopril* (Lisinopril*), 10 MG GT DAILY, (Reported) Lorazepam* (Ativan*), 0.5 MG GT PRN, (Reported) Multivitamin With Minerals (Multivitamins With Minerals*), 1 TAB GT DAILY, ( Reported) Omeprazole (Omeprazole), 40 MG GT DAILY, (Reported) Polyethylene Glycol 3350* (Miralax*), 17 GM GT PRN, (Reported) Potassium (Potassium), 40 MG GT BID, (Reported) Tramadol Hcl* (Ultram*), 50 MG GT DAILY, (Reported) Warfarin Sod (Coumadin*), 8 MG GT DAILY, (Reported) Zinc Sulfate (Zinc Sulfate*), 220 MG ORAL DAILY, (Reported) Scheduled PRN Acetaminophen* (Tylenol*), 325 MG GT Q4H PRN for Mild Pain/Temp > 100.5, ( Reported) Albuterol Sulfate* (Albuterol Sulfate Hhn*), 3 ML INH Q3HR PRN for Shortness of Breath, (Reported) Albuterol Sulfate* (Albuterol Sulfate Hhn*), 3 ML INH Q6H PRN for Shortness of Breath, (Reported) Clonidine Hcl (Clonidine Hcl), 0.1 MG PO Q6HR PRN for For High Blood Pressure, ( Reported) Hydrocodone Bit/Acetaminophen 5-325* (Trafalgar 5-325 Tablet*), 1 TAB GT Q4H PRN for For Pain, (Reported) Hydrocodone Bit/Acetaminophen 5-325* (Trafalgar 5-325 Tablet*), 1 TAB ORAL Q4H PRN for For Pain, (Reported) Ondansetron* (Zofran*), 4 MG GT Q6H PRN for Nausea & Vomiting, (Reported) Polyethylene Glycol 3350* (Miralax*), 17 GM GT DAILY PRN for Constipation, ( Reported) Tramadol Hcl* (Ultram*), 50 MG GT Q6H PRN for For Pain, (Reported) Miscellaneous Medications Chlorhexidine Gluconate (Chlorhexidine Gluconate), 15 ML TP, (Reported) Lactose-Reduced Food/Fiber (Jevity 1.2 Simone Liquid), 1,300 ML GT, (Reported) Patient History Healthcare decision maker Resuscitation status Full Code Advanced Directive on File Yes Patient History Narrative PHx: as above Shx: reviewed Fhx: non contributory Review of Systems ROS Narrative unable to obtain Physical Exam Physical Exam Narrative General Appearance: chronically ill HEENT:: normocephalic, atraumatic, bilateral eye PERRL, bilateral eye EOMI, dry mucus membranes Neck: supple, other - tracheostomy in place Respiratory: no respiratory distress, no retraction, no accessory muscle use, crackles - of lower lobes Cardiovascular : no edema, tachycardia Gastrointestinal: non tender, soft, other - feeding tube in place Musculoskeletal: other - Patient contracted and chronically debilitated. Multiple decubiti ulcer (b/l foot, R trochanter, sacral- no signs of infection) . left hip with large 15cm x 18cm plus necrotic unstageable pressure ulcer with fibrinous debris, necrotic tissue, and foul smell. no active infection noted Neurologic: responsive - to physical stimuli Skin: normal color, no rash Last 24 Hour Vital Signs Date Time Temp Pulse Resp B/P (MAP) Pulse Ox O2 Delivery O2 Flow Rate FiO2 11/28/17 15:02 107 19 40 11/28/17 12:34 110 18 40 11/28/17 12:00 98.2 111 20 111/64 96 Mechanical Ventilator 5.0 40 11/28/17 12:00 107 11/28/17 12:00 5.0 40 11/28/17 11:05 117 16 40 11/28/17 09:00 114 104/64 11/28/17 08:44 119 22 40 11/28/17 08:00 98.4 100 20 104/64 100 Mechanical Ventilator 5.0 40 11/28/17 08:00 5.0 40 11/28/17 07:54 99 11/28/17 07:23 120 17 40 11/28/17 05:38 101.5 11/28/17 05:17 123 17 40 11/28/17 04:00 101 11/28/17 04:00 99.9 101 20 87/55 100 Mechanical Ventilator 40 11/28/17 04:00 5.0 40 11/28/17 02:36 118 18 40 11/28/17 00:43 116 20 40 11/28/17 00:35 99.4 114 17 96/63 100 Mechanical Ventilator 5.0 40 11/28/17 00:30 117 11/28/17 00:25 99.4 114 17 96/63 100 Mechanical Ventilator 5.0 40 11/28/17 00:11 5.0 40 11/27/17 23:46 99.4 120 21 95/54 100 Mechanical Ventilator 5.0 40 11/27/17 23:35 99.9 123 18 11/27/17 23:34 99.9 123 17 95/59 100 Mechanical Ventilator 5.0 40 11/27/17 22:54 118 17 40 11/27/17 21:44 98.2 124 22 100/58 100 Mechanical Ventilator 5.0 40 11/27/17 21:25 120 18 40 11/27/17 21:12 98.2 120 15 96/48 100 Mechanical Ventilator 5.0 40 Intake and Output 11/27/17 11/28/17 19:00 07:00 Intake Total 805.0 ml Output Total 820 ml Balance -15.0 ml Intake Oral 0 ml Free Water 30 ml IV Total 275.0 ml Blood Product 500 ml Output Urine Total 820 ml # Bowel Movements 1 Laboratory Tests Test 11/27/17 21:35 11/28/17 09:40 White Blood Count 12.4 K/UL (4.8-10.8) H 11.7 K/UL (4.8-10.8) H Red Blood Count 2.74 M/UL (4.70-6.10) L 3.61 M/UL (4.70-6.10) L Hemoglobin 7.1 G/DL (14.2-18.0) L 10.3 G/DL (14.2-18.0) #L Hematocrit 25.2 % (42.0-52.0) L 32.7 % (42.0-52.0) L Mean Corpuscular Volume 92 FL (80-99) 91 FL (80-99) Mean Corpuscular Hemoglobin 25.8 PG (27.0-31.0) L 28.5 PG (27.0-31.0) Mean Corpuscular Hemoglobin Concent 28.0 G/DL (32.0-36.0) L 31.5 G/DL (32.0-36.0) L Red Cell Distribution Width 16.4 % (11.6-14.8) H 16.0 % (11.6-14.8) H Platelet Count 358 K/UL (150-450) 351 K/UL (150-450) Mean Platelet Volume 6.6 FL (6.5-10.1) 7.1 FL (6.5-10.1) Neutrophils (%) (Auto) % (45.0-75.0) 78.3 % (45.0-75.0) H Lymphocytes (%) (Auto) % (20.0-45.0) 12.2 % (20.0-45.0) L Monocytes (%) (Auto) % (1.0-10.0) 6.2 % (1.0-10.0) Eosinophils (%) (Auto) % (0.0-3.0) 3.0 % (0.0-3.0) Basophils (%) (Auto) % (0.0-2.0) 0.2 % (0.0-2.0) Differential Total Cells Counted 100 Neutrophils % (Manual) 70 % (45-75) Lymphocytes % (Manual) 18 % (20-45) L Monocytes % (Manual) 4 % (1-10) Eosinophils % (Manual) 6 % (0-3) H Basophils % (Manual) 0 % (0-2) Band Neutrophils 2 % (0-8) Platelet Estimate Adequate Platelet Morphology Normal Hypochromasia 2+ Anisocytosis 1+ Microcytosis 1+ Sodium Level 153 MMOL/L (136-145) H 152 MMOL/L (136-145) H Potassium Level 4.9 MMOL/L (3.5-5.1) 4.1 MMOL/L (3.5-5.1) Chloride Level 118 MMOL/L (98-107) H 117 MMOL/L (98-107) H Carbon Dioxide Level 30 MMOL/L (21-32) 27 MMOL/L (21-32) Anion Gap 5 mmol/L (5-15) 8 mmol/L (5-15) Blood Urea Nitrogen 58 mg/dL (7-18) H 47 mg/dL (7-18) H Creatinine 1.1 MG/DL (0.55-1.30) 1.1 MG/DL (0.55-1.30) Estimat Glomerular Filtration Rate > 60 mL/min (>60) > 60 mL/min (>60) Glucose Level 99 MG/DL (74-106) 91 MG/DL (74-106) Calcium Level 9.3 MG/DL (8.5-10.1) 9.4 MG/DL (8.5-10.1) Total Bilirubin < 0.1 MG/DL (0.2-1.0) L Aspartate Amino Transf (AST/SGOT) 59 U/L (15-37) H Alanine Aminotransferase (ALT/SGPT) 197 U/L (12-78) H Alkaline Phosphatase 148 U/L (46-116) H Total Creatine Kinase 155 U/L (26-308) Creatine Kinase MB 2.5 NG/ML (0.0-3.6) Creatine Kinase MB Relative Index 1.6 Troponin I 0.005 ng/mL (0.000-0.056) Total Protein 8.1 G/DL (6.4-8.2) Albumin 1.5 G/DL (3.4-5.0) L 1.5 G/DL (3.4-5.0) L Globulin 6.6 g/dL Albumin/Globulin Ratio 0.2 (1.0-2.7) L Phosphorus Level 3.4 MG/DL (2.5-4.9) Height (Feet): 5 Height (Inches): 8.00 Weight (Pounds): 116 Medications Current Medications Medications (Trade) Dose Ordered Sig/Tameka Route PRN Reason Start Time Stop Time Status Last Admin Dose Admin Acetaminophen (Tylenol) 650 mg Q4H PRN GT FEVER 11/28/17 02:15 12/28/17 02:14 11/28/17 05:08 Albuterol/ Ipratropium (Albuterol/ Ipratropium) 3 ml Q4H PRN HHN Shortness of Breath 11/28/17 00:15 12/03/17 00:14 Amiodarone HCl (Cordarone) 200 mg DAILY GT 11/28/17 09:00 12/28/17 08:59 11/28/17 09:08 Carvedilol (Coreg) 3.125 mg Q12HR GT 11/28/17 09:00 12/28/17 08:59 Dextrose 1,000 ml @ 150 mls/hr Q6H40M IV 11/28/17 13:00 12/28/17 12:59 11/28/17 12:31 Dextrose (Dextrose 50%) STAT PRN IV Hypoglycemia 11/28/17 00:15 12/28/17 00:14 Furosemide (Lasix) 60 mg DAILY GT 11/28/17 09:00 12/28/17 08:59 11/28/17 09:08 Heparin Sodium (Porcine) (Heparin 5000 units/ml) 5,000 units EVERY 12 HOURS SUBQ 11/28/17 09:00 12/28/17 08:59 Levetiracetam (Keppra) 500 mg Q12HR GT 11/28/17 09:00 12/28/17 08:59 11/28/17 09:08 Lorazepam (Ativan 2mg/ml 1ml) 2 mg Q2H PRN IV For Anxiety 11/28/17 00:15 12/05/17 00:14 Morphine Sulfate (Morphine Sulfate) 4 mg Q4H PRN IVP Severe Pain (Pain Scale 7-10) 11/28/17 00:15 12/05/17 00:14 Ondansetron HCl (Zofran) 4 mg Q6H PRN IVP Nausea & Vomiting 11/28/17 00:15 12/28/17 00:14 Pantoprazole (Protonix) 40 mg DAILY IV 11/28/17 09:00 12/28/17 08:59 11/28/17 09:08 Polyethylene Glycol (Miralax) 17 gm DAILYPRN PRN ORAL Constipation 11/28/17 00:15 12/28/17 00:14 Vancomycin HCl (Vanco rx to dose) 1 ea DAILY PRN MISC PER PROTOCOL 11/28/17 00:30 12/28/17 00:29 Vancomycin HCl 1 gm/Dextrose 275 ml @ 183.3 mls/ hr Q12H IVPB 11/28/17 04:00 12/03/17 03:59 11/28/17 05:00 Assessment/Plan Assessment/Plan Abx: IV Vanco 11/28- Assessment: L hip necrotic/unstagelable decubitus ulcer- no signs of infection on exam Fever- r/o DVT, UTI -CXR: No radiographic evidence of acute cardiopulmonary disease. Unchanged linear atelectasis/scarring in the right lung. No new focal consolidation. Leukocyotis, improving Plan: -Continue IV Vancomycin #1 for now for possible soft tissue infection given fever/leukocytosis, however on exam looks doesn't appears to be infected -if persistent/worsening fevers/leukocytosis will add gram negative coverage (ie. Ceftriaxone or Unasyn) -f/u V duplex BLE -obtain U/a with Reflex and 2 sets of Bcx. -f/u cx -Monitor CBC/BMP, temperatures Thank you for this consultation. Will continue to follow along with you. Discussed with EMIR. Radha Saini M.D. Nov 28, 2017 15:27
--- NOTE | 2017-11-28 19:28 | Wound Care Consultation ---
Wound Assessment Wound Assessment #1: Wound Number: 1 Wound Present on Admission: Yes New Wound: No Status Change of Wound: No Wound Location Body Site Modif: left Wound Location Body Site: buttocks Wound Type: pressure ulcer Francis Test: Does not Francis Pressure Ulcer Stage: Unstageable Wound Thickness: Full Thickness Wound Length: 8.5 Wound Width: 6.5 Wound Depth: utd Percent of Wound [place]/Red: 40 Percent of Wound Bed Yellow/Wh: 40 Percent of Wound Purple/Maroon: 20 Wound Drainage Description: Serosanguineous Wound Drainage Amount: Moderate Wound Drainage Odor: Mild Odor Tissue Surrounding Wound: Macerated Wound General Appearance: Reddened - yellow black, Draining Wound Assessment #2: Wound Number: 2 Wound Present on Admission: Yes New Wound: No Status Change of Wound: No Wound Location Body Site Modif: left, lateral Wound Location Body Site: malleolus/ankle Wound Type: pressure ulcer Francis Test: Does not Francis Pressure Ulcer Stage: IV Wound Thickness: Full Thickness Wound Length: 4.0 Wound Width: 3.5 Wound Depth: 0.2 Percent of Wound [place]/Red: 100 Wound Drainage Description: Serosanguineous Wound Drainage Amount: Moderate Wound Drainage Odor: None/Absent Tissue Surrounding Wound: Macerated Wound General Appearance: Reddened, Draining, Bone Palpable, Muscle Visible Wound Assessment #3: Wound Number: 3 Wound Present on Admission: Yes New Wound: No Status Change of Wound: No Wound Location Body Site Modif: left, mid, lateral Wound Location Body Site: foot Wound Type: pressure ulcer Francis Test: Does not Francis Pressure Ulcer Stage: Unstageable Wound Thickness: Full Thickness Wound Length: 3.0 Wound Width: 3.0 Wound Depth: utd Percent of Wound Purple/Maroon: 100 Wound Drainage Description: Serosanguineous Wound Drainage Amount: Scant Wound Drainage Odor: None/Absent Tissue Surrounding Wound: Indurated Wound General Appearance: Reddened - purple Wound Assessment #4: Wound Number: 4 Wound Location Body Site Modif: right Wound Location Body Site: trochanter Wound Type: pressure ulcer Francis Test: Does not Francis Pressure Ulcer Stage: Unstageable Wound Thickness: Full Thickness Wound Length: 12.0 Wound Width: 10.5 Wound Depth: utd Percent of Wound [place]/Red: 40 Percent of Wound Bed Yellow/Wh: 30 Percent of Wound Black/Brown: 30 Wound Drainage Description: Serosanguineous Wound Drainage Amount: Moderate Wound Drainage Odor: None/Absent Tissue Surrounding Wound: Macerated Wound General Appearance: Reddened - yellow,brown, Draining Wound Assessment #5: Wound Number: 5 Wound Present on Admission: Yes New Wound: No Status Change of Wound: No Wound Location Body Site Modif: right Wound Location Body Site: buttocks - extending to riht ischial tubeosity Wound Type: pressure ulcer Francis Test: Does not Francis Pressure Ulcer Stage: Unstageable Wound Thickness: Full Thickness Wound Length: 11.0 Wound Width: 7.8 Wound Depth: utd Percent of Wound [place]/Red: 30 Percent of Wound Bed Yellow/Wh: 50 Percent of Wound Black/Brown: 20 Wound Drainage Description: Serosanguineous Wound Drainage Amount: Moderate Wound Drainage Odor: None/Absent Tissue Surrounding Wound: Macerated Wound General Appearance: Reddened - yellow,brown, Draining Wound Assessment #6: Wound Number: 6 Wound Present on Admission: Yes New Wound: No Status Change of Wound: No Wound Location Body Site Modif: mid Wound Location Body Site: other - Sacrococcygeal Wound Type: pressure ulcer Francis Test: Does not Francis Pressure Ulcer Stage: IV Wound Thickness: Full Thickness Wound Length: 8.0 Wound Width: 16.0 Wound Depth: 2.0 Percent of Wound [place]/Red: 80 Percent of Wound Bed Yellow/Wh: 20 Wound Drainage Description: Serosanguineous Wound Drainage Amount: Moderate Wound Drainage Odor: None/Absent Tissue Surrounding Wound: Macerated Wound General Appearance: Reddened - yellow, Draining, Bone Palpable, Muscle Visible Wound Assessment #7: Wound Number: 7 Wound Present on Admission: Yes New Wound: No Status Change of Wound: No Wound Location Body Site Modif: right Wound Location Body Site: scapula Wound Type: pressure ulcer Francis Test: Does not Francis Pressure Ulcer Stage: Unstageable Wound Thickness: Full Thickness Wound Length: 1.5 Wound Width: 1.5 Wound Depth: utd Percent of Wound Bed Yellow/Wh: 100 - dry Wound Drainage Amount: None Wound Drainage Odor: None/Absent Tissue Surrounding Wound: full thickness scar tissue Wound General Appearance: Reddened Wound Assessment #8: Wound Number: 8 Wound Present on Admission: Yes New Wound: No Status Change of Wound: No Wound Location Body Site Modif: right Wound Location Body Site: shoulder Wound Type: pressure ulcer Francis Test: Does not Francis Pressure Ulcer Stage: Deep Tissue Injury Wound Thickness: Full Thickness Wound Length: 2.5 Wound Width: 6.0 Wound Depth: utd Percent of Wound Purple/Maroon: 100 Wound Drainage Amount: None Wound Drainage Odor: None/Absent Tissue Surrounding Wound: Intact Wound General Appearance: Reddened - purple Wound Assessment #9: Wound Number: 9 Wound Present on Admission: Yes New Wound: No Status Change of Wound: No Wound Location Body Site Modif: left, lateral Wound Location Body Site: toe - 1st Wound Type: pressure ulcer Francis Test: Does not Francis Pressure Ulcer Stage: III - healing Wound Thickness: Full Thickness Wound Length: 2.0 Wound Width: 2.0 Wound Depth: less than 0.1 Percent of Wound [place]/Red: 100 Wound Drainage Description: Serosanguineous Wound Drainage Amount: Scant Wound Drainage Odor: None/Absent Tissue Surrounding Wound: Erythemic Wound General Appearance: Reddened, Draining Wound Assessment #10: Wound Number: 10 Wound Present on Admission: Yes New Wound: No Status Change of Wound: No Wound Location Body Site Modif: left, lateral Wound Location Body Site: metatarsal head - 1st Wound Type: pressure ulcer Francis Test: Does not Francis Pressure Ulcer Stage: Deep Tissue Injury Wound Thickness: Full Thickness Wound Length: 3.0 Wound Width: 2.5 Wound Depth: utd Percent of Wound Purple/Maroon: 100 Wound Drainage Amount: None Wound Drainage Odor: None/Absent Tissue Surrounding Wound: Indurated Wound General Appearance: Reddened - purple Wound Assessment #11: Wound Number: 11 Wound Present on Admission: Yes New Wound: No Status Change of Wound: No Wound Location Body Site Modif: left, lateral, dorsal Wound Location Body Site: foot Wound Type: pressure ulcer Francis Test: Does not Francis Pressure Ulcer Stage: Deep Tissue Injury - scattered Wound Thickness: Full Thickness Wound Length: 5.5 Wound Width: 5.5 Wound Depth: utd Percent of Wound Purple/Maroon: 100 Wound Drainage Amount: None Wound Drainage Odor: None/Absent Tissue Surrounding Wound: Intact Wound General Appearance: Reddened - purple Wound Assessment #12: Wound Number: 12 Wound Present on Admission: Yes New Wound: No Status Change of Wound: No Wound Location Body Site Modif: right, mid, lateral Wound Location Body Site: foot Wound Type: pressure ulcer Francis Test: Does not Francis Pressure Ulcer Stage: Deep Tissue Injury Wound Thickness: Full Thickness Wound Length: 3.5 Wound Width: 3.5 Wound Depth: utd Percent of Wound Purple/Maroon: 100 Wound Drainage Amount: None Wound Drainage Odor: None/Absent Tissue Surrounding Wound: Intact Wound General Appearance: Reddened - purple/maroon Wound Assessment #13: Wound Number: 13 Wound Present on Admission: Yes New Wound: No Status Change of Wound: No Wound Location Body Site Modif: right, lateral Wound Location Body Site: metatarsal head - 5th Wound Type: pressure ulcer Francis Test: Does not Francis Pressure Ulcer Stage: Deep Tissue Injury Wound Thickness: Full Thickness Wound Length: 3.5 Wound Width: 3.5 Wound Depth: utd Percent of Wound Purple/Maroon: 100 Wound Drainage Amount: None Wound Drainage Odor: None/Absent Tissue Surrounding Wound: Intact Wound General Appearance: Reddened - purple/maroon Wound Assessment #14: Wound Number: 14 Wound Present on Admission: Yes New Wound: No Status Change of Wound: No Wound Location Body Site Modif: right, lateral Wound Location Body Site: toe - 5th Wound Type: pressure ulcer Francis Test: Does not Francis Pressure Ulcer Stage: Deep Tissue Injury Wound Thickness: Full Thickness Wound Length: 1.0 Wound Width: 1.0 Wound Depth: utd Percent of Wound Purple/Maroon: 100 Wound Drainage Amount: None Wound Drainage Odor: None/Absent Tissue Surrounding Wound: Erythemic Wound General Appearance: Reddened - purple/maroon Wound Assessment #15: Wound Number: 15 Wound Present on Admission: Yes New Wound: No Status Change of Wound: No Wound Location Body Site Modif: left, medial Wound Location Body Site: malleolus/ankle Wound Type: pressure ulcer Francis Test: Does not Francis Pressure Ulcer Stage: Unstageable Wound Length: 2.0 Wound Width: 2.5 Wound Depth: utd Percent of Wound Bed Yellow/Wh: 100 - dry Wound Drainage Amount: None Wound Drainage Odor: None/Absent Tissue Surrounding Wound: Erythemic Wound Assessment #16: Wound Number: 16 Wound Present on Admission: Yes New Wound: No Status Change of Wound: No Wound Location Body Site Modif: left, medial Wound Location Body Site: knee Wound Type: pressure ulcer Francis Test: Does not Francis Pressure Ulcer Stage: III Wound Thickness: Full Thickness Wound Length: 2.0 Wound Width: 2.0 Wound Depth: 0.2 Percent of Wound [place]/Red: 100 Wound Drainage Description: Serosanguineous Wound Drainage Amount: Scant Wound Drainage Odor: None/Absent Tissue Surrounding Wound: Erythemic Wound General Appearance: Reddened, Draining Wound Assessment #17: Wound Number: 17 Wound Present on Admission: Yes New Wound: No Status Change of Wound: No Wound Location Body Site Modif: left Wound Location Body Site: trochanter Wound Type: pressure ulcer Francis Test: Does not Francis Pressure Ulcer Stage: Unstageable Wound Thickness: Full Thickness Wound Length: 11.5 Wound Width: 11.5 Wound Depth: utd Percent of Wound Bed Yellow/Wh: 20 Percent of Wound Black/Brown: 80 Wound Drainage Description: Serosanguineous Wound Drainage Amount: Moderate Wound Drainage Odor: Mild Odor Tissue Surrounding Wound: Indurated Wound General Appearance: Blackened - yellow, Draining, Necrotic Wound Assessment #18: Wound Number: 18 Wound Present on Admission: Yes New Wound: No Status Change of Wound: No Wound Location Body Site Modif: left Wound Location Body Site: elbow Wound Type: pressure ulcer Francis Test: Does not Francis Pressure Ulcer Stage: III Wound Thickness: Full Thickness Wound Length: 1.5 Wound Width: 1.5 Wound Depth: 0.1 Percent of Wound [place]/Red: 90 Percent of Wound Bed Yellow/Wh: 10 Wound Drainage Description: Serosanguineous Wound Drainage Amount: None Wound Drainage Odor: None/Absent Tissue Surrounding Wound: Erythemic Wound General Appearance: Reddened, Draining Wound Assessment #19: Wound Number: 19 Wound Present on Admission: Yes New Wound: No Status Change of Wound: No Wound Location Body Site Modif: left Wound Location Body Site: ear Wound Type: pressure ulcer Francis Test: Does not Francis Pressure Ulcer Stage: III - healing Wound Thickness: Full Thickness Wound Length: 2.0 Wound Width: 1.0 Wound Depth: 0.2 Percent of Wound [place]/Red: 90 Percent of Wound Bed Yellow/Wh: 10 Wound Drainage Description: Serosanguineous Wound Drainage Amount: Scant Wound Drainage Odor: None/Absent Tissue Surrounding Wound: Macerated Wound General Appearance: Reddened, Draining Wound Assessment #20: Wound Number: 20 Wound Present on Admission: Yes New Wound: No Status Change of Wound: No Wound Location Body Site Modif: right Wound Location Body Site: ear Wound Type: scar Francis Test: Does not Francis Wound Thickness: Full Thickness Wound Length: 1.0 Wound Width: 1.0 Percent of Wound [place]/Red: 100 Wound Drainage Amount: None Wound Drainage Odor: None/Absent Tissue Surrounding Wound: Intact Wound General Appearance: Asymptomatic Wound Comment #1 Left buttock extending to left ischial tuberosity unstageable pressure ulcer #2 Left lateral malleolus stage IV pressure ulcer #3 Left lateral mid foot DTI pressure ulcer #4 Right trochanter unstageable pressure ulcer #5 Right buttock extending to right right ischial tuberosity unstageable pressure ulcer #6 Sacrococcygeal stage IV pressure ulcer #7 Right scapula unstageable dry yellow scab pressure with surrounding skin full thickness scar tissue #8 Right shoulder DTI pressure ulcer #9 Left lateral big toe stage III pressure ulcer #10 Left lateral 1st metatarsal head DTI pressure ulcer #11 Right lateral mid foot DTI pressure ulcer #12 Left lateral and dorsal foot scattered DTI pressure ulcer #13 Right lateral 5th toe DTI pressure ulcer #14 Right lateral 5th toe DTI pressure ulcer #15 Left medial malleolus unstageable pressure ulcer #16 Left medial knee stage III pressure ulcer #17 Left Trochanter unstageable necrotic pressure ulcer #18 Left elbow stage III pressure ulcer #19 Left ear healing stage III pressure ulcer #20 Right ear full thickness scar tissue Recommendation -Local wound care per protocol -Keep clean and dry -Turn and reposition -Optimize nutrition -Low air loss P200 mattress -Offload both heels -Heel protector on both heels -Possible sharp debridement on left trochanter. Spoke to Dr Moses. Dr Moses stated he will refer Pt to a Dr to evaluate the pressure ulcers. -Assess and f/u accordingly for any changeKENN Barnes RN Nov 28, 2017 19:28
[2017-11-29] VITALS: BP 136/75
[2017-11-29] MEDS: Vancomycin 1 GM in D5W 275 ML IVPB SCH (02:23)
[2017-11-29] MEDS: Morphine Sulfate 4mg/ml Inj IVP PRN ×2 (02:24→11:30)
[2017-11-29 04:00] VITALS: BP 110/67
[2017-11-29 06:35] LABS: APPEARANCE,URINE SLIGHTLY CLOUDY; BILIRUBIN, URINE NEGATIVE (NEGATIVE); GLUCOSE, URINE (UA) NEGATIVE (NEGATIVE); KETONES,URINE NEGATIVE (NEGATIVE); LEUKOCYTE ESTERASE ,URINE 3+ (NEGATIVE); NITRITE,URINE POSITIVE (NEGATIVE); PH,URINE 6.5 (4.5-8.0); PROTEIN,URINE 3+ (NEGATIVE); UROBILINOGEN,URINE NORMAL MG/DL (0.0-1.0)
[2017-11-29 06:48] LABS: COLOR,URINE YELLOW
[2017-11-29 07:00] LABS: BASOPHILS % (AUTO) 0.2 % (0.0-2.0); EOSINOPHILS % (AUTO) 2.3 % (0.0-3.0); HEMATOCRIT 27.6 % (42.0-52.0); HEMOGLOBIN 8.9 G/DL (14.2-18.0); LYMPHOCYTES % (AUTO) 9.8 % (20.0-45.0); MEAN CORPUSCULAR VOLUME 89 FL (80-99); MONOCYTES % (AUTO) 5.4 % (1.0-10.0); NEUTROPHILS % (AUTO) 82.3 % (45.0-75.0); PLATELET COUNT 325 K/UL (150-450); RED CELL DISTRIBUTION WIDTH 15.4 % (11.6-14.8); WHITE BLOOD COUNT 14.8 K/UL (4.8-10.8)
[2017-11-29 08:00] VITALS: BP 115/62
--- NOTE | 2017-11-29 08:13 | Pulmonolgy Critical Care Note ---
Critical Care - Asmt/Plan Problems: (1) Acute on chronic respiratory failure (2) Sepsis (3) Atrial fibrillation (4) EF of 30 (5) AICD (automatic cardioverter/defibrillator) present (6) Pressure ulcer, hip, left, unstageable (7) Feeding by G-tube Respiratory: monitor respiratory rate, adjust FIO2, CXR Cardiac: continue to monitor HR/BP Renal: F/U I&O, keep IV fluid, other - lasix for now Infectious Disease: check cultures Gastrointestinal: continue feedings/current rate Endocrine: monitor blood sugar, continue sliding scale insulin Hematologic: monitor H/H, transfuse if hgb<8.5 Neurologic: PRN Ativan, PRN Morphine, keep patient comfortable Affect: PRN ativan Prophylaxis: Protonix, Heparin Notes Reviewed: interior assemblies installer, cardio, renal Discussed with: nurses, consultants, counter caseroutside sales account manager - Objective Last 24 Hour Vital Signs Date Time Temp Pulse Resp B/P (MAP) Pulse Ox O2 Delivery O2 Flow Rate FiO2 11/29/17 08:00 98.4 107 20 115/62 100 Mechanical Ventilator 40 11/29/17 08:00 5.0 40 11/29/17 05:00 100 19 40 11/29/17 04:00 98.7 102 24 110/67 94 Mechanical Ventilator 40 11/29/17 04:00 97 11/29/17 03:59 5.0 40 11/29/17 03:05 95 22 40 11/29/17 01:09 98 20 40 11/29/17 00:00 99.0 102 24 136/75 94 Non-Rebreather 11/28/17 22:48 106 21 40 11/28/17 22:06 99.0 11/28/17 21:36 122 129/49 11/28/17 21:30 100.1 103 24 119/49 Mechanical Ventilator 40 11/28/17 20:43 122 22 40 11/28/17 20:00 5.0 40 11/28/17 20:00 117 11/28/17 20:00 99.1 117 22 104/56 99 Mechanical Ventilator 40 11/28/17 18:52 121 22 40 11/28/17 17:06 105 18 40 11/28/17 16:00 105 11/28/17 16:00 98.1 107 20 129/49 100 Mechanical Ventilator 40 11/28/17 16:00 5.0 40 11/28/17 15:02 107 19 40 11/28/17 12:34 110 18 40 11/28/17 12:00 98.2 111 20 111/64 96 Mechanical Ventilator 5.0 40 11/28/17 12:00 107 11/28/17 12:00 5.0 40 11/28/17 11:05 117 16 40 11/28/17 09:00 114 104/64 11/28/17 08:44 119 22 40 Status: awake Condition: critical Neck: full ROM Lungs: clear Heart: HR/BP stable, HR/BP unstable Abdomen: soft, active bowel sounds Extremities: no C/C/E Micro: Microbiology Date/Time Source Procedure Growth Status 11/28/17 04:00 Sputum Gram Stain - Final Resulted 11/28/17 04:00 Sputum Sputum Culture Pending Resulted 11/28/17 02:00 Sacral Wound Gram Stain - Final Resulted 11/28/17 02:00 Sacral Wound Wound Culture Pending Resulted 11/28/17 02:00 Sacral Wound Gram Stain - Final Resulted 11/28/17 02:00 Sacral Wound Wound Culture Pending Resulted Critical Care - Subjective ROS Limited/Unobtainable: Yes Interval Events: open eyes, looks comfortable FI02: 40 Vent Support Breath Rate: 10 Vent Support Mode: AC Vent Tidal Volume: 600 Sputum Amount: Moderate PEEP: 5.0 PIP: 21 Tube Feeding Amount: 30 I&O: Intake and Output 11/28/17 11/29/17 19:00 07:00 Intake Total 1617.50 ml 2055 ml Output Total 1200 ml 450 ml Balance 417.50 ml 1605 ml Free Water 100 ml 100 ml IV Total 1247.50 ml 1625 ml Tube Feeding 240 ml 330 ml Other 30 ml Output Urine Total 1200 ml 450 ml # Bowel Movements 2 2 CXR: JENNIE Labs: Laboratory Tests Test 11/28/17 09:40 11/29/17 04:45 11/29/17 06:45 White Blood Count 11.7 K/UL (4.8-10.8) H 14.8 K/UL (4.8-10.8) H Red Blood Count 3.61 M/UL (4.70-6.10) L 3.10 M/UL (4.70-6.10) L Hemoglobin 10.3 G/DL (14.2-18.0) #L 8.9 G/DL (14.2-18.0) L Hematocrit 32.7 % (42.0-52.0) L 27.6 % (42.0-52.0) L Mean Corpuscular Volume 91 FL (80-99) 89 FL (80-99) Mean Corpuscular Hemoglobin 28.5 PG (27.0-31.0) 28.6 PG (27.0-31.0) Mean Corpuscular Hemoglobin Concent 31.5 G/DL (32.0-36.0) L 32.1 G/DL (32.0-36.0) Red Cell Distribution Width 16.0 % (11.6-14.8) H 15.4 % (11.6-14.8) H Platelet Count 351 K/UL (150-450) 325 K/UL (150-450) Mean Platelet Volume 7.1 FL (6.5-10.1) 6.6 FL (6.5-10.1) Neutrophils (%) (Auto) 78.3 % (45.0-75.0) H 82.3 % (45.0-75.0) H Lymphocytes (%) (Auto) 12.2 % (20.0-45.0) L 9.8 % (20.0-45.0) L Monocytes (%) (Auto) 6.2 % (1.0-10.0) 5.4 % (1.0-10.0) Eosinophils (%) (Auto) 3.0 % (0.0-3.0) 2.3 % (0.0-3.0) Basophils (%) (Auto) 0.2 % (0.0-2.0) 0.2 % (0.0-2.0) Sodium Level 152 MMOL/L (136-145) H Potassium Level 4.1 MMOL/L (3.5-5.1) Chloride Level 117 MMOL/L (98-107) H Carbon Dioxide Level 27 MMOL/L (21-32) Anion Gap 8 mmol/L (5-15) Blood Urea Nitrogen 47 mg/dL (7-18) H Creatinine 1.1 MG/DL (0.55-1.30) Estimat Glomerular Filtration Rate > 60 mL/min (>60) Glucose Level 91 MG/DL (74-106) Calcium Level 9.4 MG/DL (8.5-10.1) Phosphorus Level 3.4 MG/DL (2.5-4.9) Albumin 1.5 G/DL (3.4-5.0) L Urine Color Yellow Urine Appearance Slightly cloudy Urine pH 6.5 (4.5-8.0) Urine Specific [place] 1.010 (1.005-1.035) Urine Protein 3+ (NEGATIVE) H Urine Glucose (UA) Negative (NEGATIVE) Urine Ketones Negative (NEGATIVE) Urine Occult Blood 5+ (NEGATIVE) H Urine Nitrite Positive (NEGATIVE) H Urine Bilirubin Negative (NEGATIVE) Urine Urobilinogen Normal MG/DL (0.0-1.0) Urine Leukocyte Esterase 3+ (NEGATIVE) H Urine RBC 20-30 /HPF (0 - 0) H Urine WBC 15-20 /HPF (0 - 0) H Urine Squamous Epithelial Cells Occasional /LPF Urine Bacteria Moderate /HPF (NONE) H ODETTE SMILEY Nov 29, 2017 08:13
[2017-11-29] MEDS: Amiodarone 200mg tab GT SCH (08:17)
[2017-11-29] MEDS: levETIRAcetam 500mg/5ml Liquid GT SCH ×2 (08:18→20:46)
[2017-11-29] MEDS: Pantoprazole Inj IV SCH (08:18)
[2017-11-29] MEDS: Heparin 5000 units/ml inj SUBQ SCH ×2 (08:20→20:48)
--- NOTE | 2017-11-29 11:59 | Operative Note - PDOC ---
Operative Note Operative Note Date of Operation/Procedure: Nov 29, 2017 Pre-op Diagnosis: left hip decubitus ulcer with necrotic tissue 15cm x 18cm unstageable. Procedure: debridement of left hip decubitus ulcer Operative Findings: consistent w/pre-op dx studies Surgeon: smita Specimen: none Complications: none Condition: stable Fluids: n/a Estimated Blood Loss: none Drains: none Implant(s) used?: No Indications for Procedure 57M with multiple medical comorbidities, contracted, bed bound, trach/peg vent dependant with multiple decubitus ulcers. left hip ulcer large and unstageable. has areas of necrotic tissue that required debridement which was indicated and recommended for proper wound care Description of Procedure patient was awake and comfortable during procedure. he was placed in right lateral decubitus position. wounds were evaluated and left hip wound with necrotic tissue to be debrided. wound cleaned. using surgical instruments necrotic tissue was debrided from skin down to subcutaneous tissue. a portion of the skin had breakdown and another portion had a thick clean eschar. eschar was not removed. once necrotic tissue debrided the wound was cleaned and new dressings were applied. continue with local wound care as planned. will continue to monitor wounds. Derek Dong Nov 29, 2017 11:59
[2017-11-29 12:00] VITALS: BP 118/65
--- NOTE | 2017-11-29 12:01 | General Progress Note ---
Progress Note Progress Note Surgery: multiple bilateral hip and sacral ulcers noted. all of which have likely been present for some time now. right hip wounds clean without significant necrotic tissue. same with sacral. left hip with large ulcer that has necrotic tissue that requires debridement. please see surgical note for details. wound debridement performed to help with healing. -continue with wound care to all ulcers. -dressings -keep off wounds -turn q2hrs -air bed Derek Dong Nov 29, 2017 12:01
--- NOTE | 2017-11-29 14:35 | Infectious Diseases Prog Note ---
Assessment/Plan Assessment/Plan Assessment: L hip necrotic/unstagelable decubitus ulcer SP Debridement Leukocytosis Fever- r/o DVT, UTI -CXR: No radiographic evidence of acute cardiopulmonary disease. Unchanged linear atelectasis/scarring in the right lung. No new focal consolidation. Leukocyotis, increased Plan: -Continue IV Vancomycin # 2 and Zosyn d# 1 -f/u V duplex BLE -obtain U/a with Reflex and 2 sets of Bcx. -f/u cx ( wnd and Sp ) -Monitor CBC/BMP, temperatures Subjective Allergies: Coded Allergies: No Known Allergies (Unverified , 03/07/17) Subjective afebrile Objective Vital Signs Last 24 Hour Vital Signs Date Time Temp Pulse Resp B/P (MAP) Pulse Ox O2 Delivery O2 Flow Rate FiO2 11/29/17 12:55 102 19 40 11/29/17 12:09 100 19 40 11/29/17 12:00 5.0 40 11/29/17 12:00 95 11/29/17 12:00 98.6 94 18 118/65 100 Mechanical Ventilator 40 11/29/17 09:19 96 19 40 11/29/17 08:18 107 115/62 11/29/17 08:13 105 19 40 11/29/17 08:00 103 11/29/17 08:00 98.4 107 20 115/62 100 Mechanical Ventilator 40 11/29/17 08:00 5.0 40 11/29/17 05:00 100 19 40 11/29/17 04:00 98.7 102 24 110/67 94 Mechanical Ventilator 40 11/29/17 04:00 97 11/29/17 03:59 5.0 40 11/29/17 03:05 95 22 40 11/29/17 01:09 98 20 40 11/29/17 00:00 99.0 102 24 136/75 94 Non-Rebreather 11/28/17 22:48 106 21 40 11/28/17 22:06 99.0 11/28/17 21:36 122 129/49 11/28/17 21:30 100.1 103 24 119/49 Mechanical Ventilator 40 11/28/17 20:43 122 22 40 11/28/17 20:00 5.0 40 11/28/17 20:00 117 11/28/17 20:00 99.1 117 22 104/56 99 Mechanical Ventilator 40 11/28/17 18:52 121 22 40 11/28/17 17:06 105 18 40 11/28/17 16:00 105 11/28/17 16:00 98.1 107 20 129/49 100 Mechanical Ventilator 40 11/28/17 16:00 5.0 40 11/28/17 15:02 107 19 40 Height (Feet): 5 Height (Inches): 8.00 Weight (Pounds): 118 HEENT: anicteric Respiratory/Chest: lungs clear Cardiovascular: regular rhythm Abdomen: no mass Microbiology Date/Time Source Procedure Growth Status 11/28/17 04:00 Sputum Gram Stain - Final Resulted 11/28/17 04:00 Sputum Sputum Culture - Preliminary Resulted 11/28/17 02:00 Sacral Wound Gram Stain - Final Resulted 11/28/17 02:00 Sacral Wound Wound Culture - Preliminary Resulted 11/28/17 02:00 Sacral Wound Gram Stain - Final Resulted 11/28/17 02:00 Wound Culture - Preliminary Gram Positive Cocci Resulted Laboratory Tests Test 11/29/17 04:45 11/29/17 06:45 Urine Color Yellow Urine Appearance Slightly cloudy Urine pH 6.5 (4.5-8.0) Urine Specific [place] 1.010 (1.005-1.035) Urine Protein 3+ (NEGATIVE) H Urine Glucose (UA) Negative (NEGATIVE) Urine Ketones Negative (NEGATIVE) Urine Occult Blood 5+ (NEGATIVE) H Urine Nitrite Positive (NEGATIVE) H Urine Bilirubin Negative (NEGATIVE) Urine Urobilinogen Normal MG/DL (0.0-1.0) Urine Leukocyte Esterase 3+ (NEGATIVE) H Urine RBC 20-30 /HPF (0 - 0) H Urine WBC 15-20 /HPF (0 - 0) H Urine Squamous Epithelial Cells Occasional /LPF Urine Bacteria Moderate /HPF (NONE) H White Blood Count 14.8 K/UL (4.8-10.8) H Red Blood Count 3.10 M/UL (4.70-6.10) L Hemoglobin 8.9 G/DL (14.2-18.0) L Hematocrit 27.6 % (42.0-52.0) L Mean Corpuscular Volume 89 FL (80-99) Mean Corpuscular Hemoglobin 28.6 PG (27.0-31.0) Mean Corpuscular Hemoglobin Concent 32.1 G/DL (32.0-36.0) Red Cell Distribution Width 15.4 % (11.6-14.8) H Platelet Count 325 K/UL (150-450) Mean Platelet Volume 6.6 FL (6.5-10.1) Neutrophils (%) (Auto) 82.3 % (45.0-75.0) H Lymphocytes (%) (Auto) 9.8 % (20.0-45.0) L Monocytes (%) (Auto) 5.4 % (1.0-10.0) Eosinophils (%) (Auto) 2.3 % (0.0-3.0) Basophils (%) (Auto) 0.2 % (0.0-2.0) Current Medications Medications (Trade) Dose Ordered Sig/Tameka Route PRN Reason Start Time Stop Time Status Last Admin Dose Admin Acetaminophen (Tylenol) 650 mg Q4H PRN GT FEVER 11/28/17 02:15 12/28/17 02:14 11/28/17 21:36 Albuterol/ Ipratropium (Albuterol/ Ipratropium) 3 ml Q4H PRN HHN Shortness of Breath 11/28/17 00:15 12/03/17 00:14 Amiodarone HCl (Cordarone) 200 mg DAILY GT 11/28/17 09:00 12/28/17 08:59 11/29/17 08:17 Carvedilol (Coreg) 3.125 mg Q12HR GT 11/28/17 09:00 12/28/17 08:59 11/29/17 08:18 Dextrose 1,000 ml @ 150 mls/hr Q6H40M IV 11/28/17 13:00 12/28/17 12:59 11/29/17 08:18 Dextrose (Dextrose 50%) STAT PRN IV Hypoglycemia 11/28/17 00:15 12/28/17 00:14 Heparin Sodium (Porcine) (Heparin 5000 units/ml) 5,000 units EVERY 12 HOURS SUBQ 11/28/17 09:00 12/28/17 08:59 11/29/17 08:20 Levetiracetam (Keppra) 500 mg Q12HR GT 11/28/17 09:00 12/28/17 08:59 11/29/17 08:18 Lorazepam (Ativan 2mg/ml 1ml) 2 mg Q2H PRN IV For Anxiety 11/28/17 00:15 12/05/17 00:14 Morphine Sulfate (Morphine Sulfate) 4 mg Q4H PRN IVP Severe Pain (Pain Scale 7-10) 11/28/17 00:15 12/05/17 00:14 11/29/17 11:30 Ondansetron HCl (Zofran) 4 mg Q6H PRN IVP Nausea & Vomiting 11/28/17 00:15 12/28/17 00:14 Pantoprazole (Protonix) 40 mg DAILY IV 11/28/17 09:00 12/28/17 08:59 11/29/17 08:18 Polyethylene Glycol (Miralax) 17 gm DAILYPRN PRN ORAL Constipation 11/28/17 00:15 12/28/17 00:14 Vancomycin HCl (Vanco rx to dose) 1 ea DAILY PRN MISC PER PROTOCOL 11/28/17 00:30 12/28/17 00:29 Vancomycin HCl 1 gm/Dextrose 275 ml @ 183.3 mls/ hr Q12H IVPB 11/28/17 04:00 12/03/17 03:59 11/29/17 02:23 MARCUS PA M.D. Nov 29, 2017 14:35
[2017-11-29 16:00] VITALS: BP 121/65
[2017-11-29] MEDS: Piperacillin/Tazobactam 3.375 GM in NS 110 ML IVPB SCH (16:14)
[2017-11-29] MEDS: Acetaminophen 650mg/20.3ml GT PRN (16:14)
[2017-11-29] MEDS ORDERED: NS 275ml ONE (17:26)
[2017-11-29 20:00] VITALS: BP 100/55
[2017-11-30] VITALS: BP 120/64
[2017-11-30 04:00] VITALS: BP 100/65
[2017-11-30] MEDS: Piperacillin/Tazobactam 3.375 GM in NS 110 ML IVPB SCH ×2 (04:03→15:45)
[2017-11-30] MEDS: Acetaminophen 650mg/20.3ml GT PRN (05:21)
[2017-11-30 05:40] LABS: BASOPHILS % (AUTO) 0.2 % (0.0-2.0); HEMATOCRIT 27.8 % (42.0-52.0); LYMPHOCYTES % (AUTO) 14.5 % (20.0-45.0); MEAN CORPUSCULAR VOLUME 89 FL (80-99); MONOCYTES % (AUTO) 5.8 % (1.0-10.0); NEUTROPHILS % (AUTO) 77.5 % (45.0-75.0); PLATELET COUNT 322 K/UL (150-450); RED BLOOD COUNT 3.12 M/UL (4.70-6.10); RED CELL DISTRIBUTION WIDTH 15.3 % (11.6-14.8); WHITE BLOOD COUNT 12.8 K/UL (4.8-10.8)
[2017-11-30 06:10] LABS: ALANINE AMINOTRANSFERASE 95 U/L (12-78); ALBUMIN 1.3 G/DL (3.4-5.0); ALBUMIN/GLOBULIN RATIO 0.2 (1.0-2.7); ALKALINE PHOSPHATASE 117 U/L (46-116); ANION GAP 8 mmol/L (5-15); ASPARTATE AMINO TRANSFERASE 28 U/L (15-37); BILIRUBIN,TOTAL 0.2 MG/DL (0.2-1.0); BLOOD UREA NITROGEN 22 mg/dL (7-18); CALCIUM 8.6 MG/DL (8.5-10.1); CARBON DIOXIDE 25 MMOL/L (21-32); CHLORIDE 103 MMOL/L (98-107); CREATININE 0.9 MG/DL (0.55-1.30); PHOSPHORUS 2.8 MG/DL (2.5-4.9); POTASSIUM 3.4 MMOL/L (3.5-5.1); SODIUM 136 MMOL/L (136-145)
[2017-11-30 08:00] VITALS: BP 109/73
[2017-11-30] MEDS ORDERED: Vancomycin 750mg/NS 250ml IVPB ONE (08:00)
[2017-11-30] MEDS: Pantoprazole Inj IV SCH (08:56)
[2017-11-30] MEDS: levETIRAcetam 500mg/5ml Liquid GT SCH ×2 (08:56→20:24)
[2017-11-30] MEDS: Heparin 5000 units/ml inj SUBQ SCH ×2 (09:00→20:25)
--- NOTE | 2017-11-30 09:04 | Pulmonology Progress Note ---
Assessment/Plan Problems: (1) MDRO (multiple drug resistant organisms) resistance (2) Anemia (3) Sepsis (4) AICD (automatic cardioverter/defibrillator) present (5) EF of 30 (6) Feeding by G-tube Respiratory: adjust tidal volume Cardiac: continue pressors Renal: F/U I&O Infectious Disease: check cultures Gastrointestinal: continue feedings/current rate Endocrine: monitor blood sugar, check HgA1C Hematologic: monitor H/H Affect: PRN ativan Subjective ROS Limited/Unobtainable: No Constitutional: Reports: no symptoms HEENT: Repors: no symptoms Respiratory: Reports: no symptoms Allergies: Coded Allergies: No Known Allergies (Unverified , 03/07/17) Objective Last 24 Hour Vital Signs Date Time Temp Pulse Resp B/P (MAP) Pulse Ox O2 Delivery O2 Flow Rate FiO2 11/30/17 08:57 92 109/73 11/30/17 08:37 92 19 40 11/30/17 08:00 97.6 107 20 109/73 100 Mechanical Ventilator 40 11/30/17 08:00 5.0 40 11/30/17 06:45 98 18 40 11/30/17 05:15 112 20 40 11/30/17 04:00 99.2 108 18 100/65 100 Mechanical Ventilator 40 11/30/17 04:00 107 11/30/17 04:00 5.0 40 11/30/17 03:30 109 18 40 11/30/17 01:30 104 23 40 11/30/17 00:00 5.0 40 11/30/17 00:00 106 11/30/17 00:00 99.0 104 18 120/64 100 Mechanical Ventilator 40 11/29/17 23:30 107 23 40 11/29/17 21:30 93 22 40 11/29/17 21:00 93 100/55 11/29/17 20:00 5.0 40 11/29/17 20:00 104 11/29/17 20:00 98.2 93 18 100/55 100 Mechanical Ventilator 40 11/29/17 19:30 88 19 40 11/29/17 17:14 104 20 40 11/29/17 16:00 99.7 109 18 121/65 100 Mechanical Ventilator 40 11/29/17 16:00 5.0 40 11/29/17 16:00 103 11/29/17 15:13 106 22 40 11/29/17 12:55 102 19 40 11/29/17 12:09 100 19 40 11/29/17 12:00 5.0 40 11/29/17 12:00 95 11/29/17 12:00 98.6 94 18 118/65 100 Mechanical Ventilator 40 11/29/17 09:19 96 19 40 Intake and Output 11/29/17 11/30/17 19:00 07:00 Intake Total 1997.5 ml 2302.0 ml Output Total 350 ml 850 ml Balance 1647.5 ml 1452.0 ml Free Water 10 ml IV Total 1537.5 ml 1942.0 ml Tube Feeding 390 ml 360 ml Other 60 ml Output Urine Total 350 ml 850 ml General Appearance: WD/WN HEENT: normocephalic, atraumatic Respiratory/Chest: lungs clear, normal breath sounds Cardiovascular: normal peripheral pulses, normal rate Abdomen: soft, non tender Extremities: no clubbing Skin: no rash Microbiology Date/Time Source Procedure Growth Status 11/28/17 18:45 Blood Blood Culture - Preliminary NO GROWTH AFTER 24 HOURS Resulted 11/28/17 18:30 Blood Blood Culture - Preliminary NO GROWTH AFTER 24 HOURS Resulted 11/28/17 04:00 Sputum Gram Stain - Final Resulted 11/28/17 04:00 Sputum Culture - Preliminary Gram Negative Bacillus 1 Gram Negative Bacillus 2 Resulted 11/29/17 04:45 Urine,Clean Catch Urine Culture - Preliminary Gram Negative Bacillus 1 Resulted 11/28/17 02:00 Sacral Wound Gram Stain - Final Resulted 11/28/17 02:00 Sacral Wound Wound Culture - Preliminary Resulted 11/28/17 02:00 Sacral Wound Gram Stain - Final Resulted 11/28/17 02:00 Wound Culture - Preliminary Gram Positive Cocci Resulted Laboratory Tests 11/29/17 15:21: Vancomycin Level Trough 24.3H 11/30/17 03:35: White Blood Count 12.8H, Red Blood Count 3.12L, Hemoglobin 9.0L, Hematocrit 27.8L, Mean Corpuscular Volume 89, Mean Corpuscular Hemoglobin 28.8, Mean Corpuscular Hemoglobin Concent 32.4, Red Cell Distribution Width 15.3H, Platelet Count 322, Mean Platelet Volume 6.7, Neutrophils (%) (Auto) 77.5H, Lymphocytes (%) (Auto) 14.5L, Monocytes (%) (Auto) 5.8, Eosinophils (%) (Auto) 2.0, Basophils (%) (Auto) 0.2, Erythrocyte Sedimentation Rate 122H, Sodium Level 136, Potassium Level 3.4L, Chloride Level 103, Carbon Dioxide Level 25, Anion Gap 8, Blood Urea Nitrogen 22H, Creatinine 0.9, Estimat Glomerular Filtration Rate > 60, Glucose Level 114H, Calcium Level 8.6, Phosphorus Level 2.8, Magnesium Level 1.7L, Total Bilirubin 0.2, Aspartate Amino Transf (AST/SGOT ) 28, Alanine Aminotransferase (ALT/SGPT) 95H, Alkaline Phosphatase 117H, C- Reactive Protein, Quantitative 11.9H, Total Protein 7.2, Albumin 1.3L, Globulin 5.9, Albumin/Globulin Ratio 0.2L, Random Vancomycin Level 15.2 Current Medications Medications (Trade) Dose Ordered Sig/Tameka Route PRN Reason Start Time Stop Time Status Last Admin Dose Admin Acetaminophen (Tylenol) 650 mg Q4H PRN GT FEVER 11/28/17 02:15 12/28/17 02:14 11/30/17 05:21 Albuterol/ Ipratropium (Albuterol/ Ipratropium) 3 ml Q4H PRN HHN Shortness of Breath 11/28/17 00:15 12/03/17 00:14 Amiodarone HCl (Cordarone) 200 mg DAILY GT 11/28/17 09:00 12/28/17 08:59 11/29/17 08:17 Carvedilol (Coreg) 3.125 mg Q12HR GT 11/28/17 09:00 12/28/17 08:59 11/29/17 08:18 Dextrose 1,000 ml @ 150 mls/hr Q6H40M IV 11/28/17 13:00 12/28/17 12:59 11/30/17 05:05 Dextrose (Dextrose 50%) STAT PRN IV Hypoglycemia 11/28/17 00:15 12/28/17 00:14 Heparin Sodium (Porcine) (Heparin 5000 units/ml) 5,000 units EVERY 12 HOURS SUBQ 11/28/17 09:00 12/28/17 08:59 11/30/17 09:00 Levetiracetam (Keppra) 500 mg Q12HR GT 11/28/17 09:00 12/28/17 08:59 11/30/17 08:56 Lorazepam (Ativan 2mg/ml 1ml) 2 mg Q2H PRN IV For Anxiety 11/28/17 00:15 12/05/17 00:14 Morphine Sulfate (Morphine Sulfate) 4 mg Q4H PRN IVP Severe Pain (Pain Scale 7-10) 11/28/17 00:15 12/05/17 00:14 11/29/17 11:30 Ondansetron HCl (Zofran) 4 mg Q6H PRN IVP Nausea & Vomiting 11/28/17 00:15 12/28/17 00:14 Pantoprazole (Protonix) 40 mg DAILY IV 11/28/17 09:00 12/28/17 08:59 11/30/17 08:56 Piperacillin Sod/ Tazobactam Sod 3.375 gm/Sodium Chloride 110 ml @ 27.5 mls/hr Q12HR@0400,1600 IVPB 11/29/17 16:00 12/06/17 15:59 11/30/17 04:03 Polyethylene Glycol (Miralax) 17 gm DAILYPRN PRN ORAL Constipation 11/28/17 00:15 12/28/17 00:14 Vancomycin HCl (Vanco rx to dose) 1 ea DAILY PRN MISC PER PROTOCOL 11/28/17 00:30 12/28/17 00:29 Vancomycin/Sodium Chloride 250 ml @ 166.667 mls/hr NOW ONCE IVPB 11/30/17 08:00 11/30/17 09:29 11/30/17 08:56 ODETTE SMILEY Nov 30, 2017 09:04
[2017-11-30] MEDS: Amiodarone 200mg tab GT SCH (10:19)
--- NOTE | 2017-11-30 10:42 | General Progress Note ---
Progress Note Progress Note Surgery: doing well. slowly improving. wounds evaluated and improving. continue with wound care. will continue to monitor wounds. will do debridement as needed. thank you for allowing me to participate in Mr. Wells's care. Derek Dong Nov 30, 2017 10:42
[2017-11-30 12:43] VITALS: BP 132/60
[2017-11-30] MEDS ORDERED: Tubing IV Secondary IV ONE ×4 (14:59→21:16)
[2017-11-30] MEDS ORDERED: NS 275ml ONE ×2 (14:59→21:16)
[2017-11-30] MEDS ORDERED: D5W 275ml ONE (14:59)
[2017-11-30] MEDS ORDERED: NS 500ML ONE (15:02)
[2017-11-30 16:00] VITALS: BP 130/57
[2017-11-30 20:00] VITALS: BP 119/70
[2017-11-30] MEDS: Vancomycin 750mg/NS 250ml IVPB SCH (20:05)
[2017-12-01] VITALS: BP 118/69
[2017-12-01] MEDS: Morphine Sulfate 4mg/ml Inj IVP PRN (00:38)
[2017-12-01 04:00] VITALS: BP 110/65
[2017-12-01] MEDS: Piperacillin/Tazobactam 3.375 GM in NS 110 ML IVPB SCH (04:13)
[2017-12-01 05:54] LABS: BASOPHILS % (AUTO) 0.3 % (0.0-2.0); EOSINOPHILS % (AUTO) 3.5 % (0.0-3.0); LYMPHOCYTES % (AUTO) 14.7 % (20.0-45.0); MEAN CORPUSCULAR VOLUME 88 FL (80-99); MONOCYTES % (AUTO) 6.3 % (1.0-10.0); NEUTROPHILS % (AUTO) 75.3 % (45.0-75.0); PLATELET COUNT 361 K/UL (150-450); RED BLOOD COUNT 3.17 M/UL (4.70-6.10); RED CELL DISTRIBUTION WIDTH 14.9 % (11.6-14.8); WHITE BLOOD COUNT 10.7 K/UL (4.8-10.8)
[2017-12-01 06:22] LABS: ALANINE AMINOTRANSFERASE 84 U/L (12-78); ALBUMIN 1.3 G/DL (3.4-5.0); ALBUMIN/GLOBULIN RATIO 0.2 (1.0-2.7); ALKALINE PHOSPHATASE 123 U/L (46-116); ANION GAP 9 mmol/L (5-15); ASPARTATE AMINO TRANSFERASE 30 U/L (15-37); BILIRUBIN,TOTAL 0.2 MG/DL (0.2-1.0); BLOOD UREA NITROGEN 18 mg/dL (7-18); CALCIUM 8.8 MG/DL (8.5-10.1); CARBON DIOXIDE 23 MMOL/L (21-32); CHLORIDE 107 MMOL/L (98-107); CREATININE 0.9 MG/DL (0.55-1.30); PHOSPHORUS 2.8 MG/DL (2.5-4.9); POTASSIUM 3.7 MMOL/L (3.5-5.1); SODIUM 139 MMOL/L (136-145)
[2017-12-01 08:00] VITALS: BP 104/57
[2017-12-01] MEDS: Pantoprazole Inj IV SCH (08:15)
[2017-12-01] MEDS: Vancomycin 750mg/NS 250ml IVPB SCH (08:15)
[2017-12-01] MEDS: Amiodarone 200mg tab GT SCH (08:15)
[2017-12-01] MEDS: levETIRAcetam 500mg/5ml Liquid GT SCH ×2 (08:15→21:34)
[2017-12-01] MEDS: Heparin 5000 units/ml inj SUBQ SCH ×2 (08:18→21:36)
--- NOTE | 2017-12-01 10:01 | Pulmonology Progress Note ---
Assessment/Plan Problems: (1) MDRO (multiple drug resistant organisms) resistance (2) Anemia (3) Sepsis (4) AICD (automatic cardioverter/defibrillator) present (5) EF of 30 (6) Feeding by G-tube Respiratory: monitor respiratory rate Cardiac: continue to monitor HR/BP Renal: F/U I&O, keep IV fluid, check electrolytes Infectious Disease: check cultures Gastrointestinal: continue feedings/current rate Endocrine: check HgA1C Affect: PRN ativan Prophylaxis: Protonix Notes Reviewed: private duty aide, renal Discussed with: nurses, manager case Subjective Constitutional: Reports: no symptoms HEENT: Repors: no symptoms Allergies: Coded Allergies: No Known Allergies (Unverified , 03/07/17) Objective Last 24 Hour Vital Signs Date Time Temp Pulse Resp B/P (MAP) Pulse Ox O2 Delivery O2 Flow Rate FiO2 12/01/17 08:47 99 25 40 12/01/17 08:18 106 104/57 12/01/17 08:12 103 12/01/17 08:00 5.0 40 12/01/17 08:00 97.7 107 20 104/57 100 Mechanical Ventilator 40 12/01/17 06:37 101 23 40 12/01/17 05:50 101 23 40 12/01/17 04:00 5.0 40 12/01/17 04:00 97.7 103 20 110/65 100 Mechanical Ventilator 40 12/01/17 04:00 99 12/01/17 03:40 102 23 40 12/01/17 01:19 106 12/01/17 01:05 109 23 40 12/01/17 00:00 5.0 40 12/01/17 00:00 97.5 110 20 118/69 100 Mechanical Ventilator 40 11/30/17 22:53 109 23 40 11/30/17 21:32 109 23 40 11/30/17 20:24 112 132/79 11/30/17 20:00 99.5 110 20 119/70 100 Mechanical Ventilator 40 11/30/17 20:00 5.0 40 11/30/17 20:00 110 11/30/17 18:52 110 23 40 11/30/17 17:28 111 23 40 11/30/17 16:00 104 11/30/17 16:00 5.0 40 11/30/17 16:00 99.9 110 23 130/57 100 Mechanical Ventilator 40 11/30/17 15:23 108 28 40 11/30/17 13:29 112 27 40 11/30/17 12:43 98.4 90 27 132/60 97 Mechanical Ventilator 40 11/30/17 12:00 5.0 40 11/30/17 12:00 92 11/30/17 11:29 89 23 40 Intake and Output 11/30/17 12/01/17 18:59 06:59 Intake Total 1780.0 ml 1590.834 ml Output Total 1000 ml 800 ml Balance 780.0 ml 790.834 ml IV Total 1170.0 ml 710.834 ml Tube Feeding 560 ml 780 ml Other 50 ml 100 ml Output Urine Total 1000 ml 800 ml HEENT: normocephalic, atraumatic Respiratory/Chest: lungs clear Cardiovascular: normal rate, regular rhythm Abdomen: normal bowel sounds, soft, non tender 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: certified alcohol counselor 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 normal, abnormal gait, normal mood/ affect Lymphatic: no neck adenopathy Musculoskeletal: normal muscle bulk Microbiology Date/Time Source Procedure Growth Status 11/28/17 18:45 Blood Blood Culture - Preliminary Resulted 11/28/17 18:30 Blood Blood Culture - Preliminary Resulted 11/29/17 04:45 Urine,Clean Catch Urine Culture - Final Pseudomonas Aeruginosa Complete Laboratory Tests 12/01/17 04:45: White Blood Count 10.7, Red Blood Count 3.17L, Hemoglobin 9.0L, Hematocrit 28.0L , Mean Corpuscular Volume 88, Mean Corpuscular Hemoglobin 28.4, Mean Corpuscular Hemoglobin Concent 32.1, Red Cell Distribution Width 14.9H, Platelet Count 361, Mean Platelet Volume 7.4, Neutrophils (%) (Auto) 75.3H, Lymphocytes (%) (Auto) 14.7L, Monocytes (%) (Auto) 6.3, Eosinophils (%) (Auto) 3.5H, Basophils (%) (Auto) 0.3, Sodium Level 139, Potassium Level 3.7, Chloride Level 107, Carbon Dioxide Level 23, Anion Gap 9, Blood Urea Nitrogen 18, Creatinine 0.9, Estimat Glomerular Filtration Rate > 60, Glucose Level 107H, Calcium Level 8.8, Phosphorus Level 2.8, Magnesium Level 1.9, Total Bilirubin 0.2, Aspartate Amino Transf (AST/SGOT) 30, Alanine Aminotransferase (ALT/SGPT) 84H, Alkaline Phosphatase 123H, Total Protein 7.4, Albumin 1.3L, Globulin 6.1, Albumin/Globulin Ratio 0.2L Current Medications Medications (Trade) Dose Ordered Sig/Tameka Route PRN Reason Start Time Stop Time Status Last Admin Dose Admin Acetaminophen (Tylenol) 650 mg Q4H PRN GT FEVER 11/28/17 02:15 12/28/17 02:14 11/30/17 05:21 Albuterol/ Ipratropium (Albuterol/ Ipratropium) 3 ml Q4H PRN HHN Shortness of Breath 11/28/17 00:15 12/03/17 00:14 Amiodarone HCl (Cordarone) 200 mg DAILY GT 11/28/17 09:00 12/28/17 08:59 12/01/17 08:15 Carvedilol (Coreg) 3.125 mg Q12HR GT 11/28/17 09:00 12/28/17 08:59 11/30/17 20:24 Dextrose 1,000 ml @ 50 mls/hr Q20H IV 11/30/17 10:00 12/30/17 09:59 12/01/17 06:00 Dextrose (Dextrose 50%) STAT PRN IV Hypoglycemia 11/28/17 00:15 12/28/17 00:14 Heparin Sodium (Porcine) (Heparin 5000 units/ml) 5,000 units EVERY 12 HOURS SUBQ 11/28/17 09:00 12/28/17 08:59 12/01/17 08:18 Levetiracetam (Keppra) 500 mg Q12HR GT 11/28/17 09:00 12/28/17 08:59 12/01/17 08:15 Lorazepam (Ativan 2mg/ml 1ml) 2 mg Q2H PRN IV For Anxiety 11/28/17 00:15 12/05/17 00:14 Morphine Sulfate (Morphine Sulfate) 4 mg Q4H PRN IVP Severe Pain (Pain Scale 7-10) 11/28/17 00:15 12/05/17 00:14 12/01/17 00:38 Ondansetron HCl (Zofran) 4 mg Q6H PRN IVP Nausea & Vomiting 11/28/17 00:15 12/28/17 00:14 Pantoprazole (Protonix) 40 mg DAILY IV 11/28/17 09:00 12/28/17 08:59 12/01/17 08:15 Piperacillin Sod/ Tazobactam Sod 3.375 gm/Sodium Chloride 110 ml @ 27.5 mls/hr Q12HR@0400,1600 IVPB 11/29/17 16:00 12/06/17 15:59 12/01/17 04:13 Polyethylene Glycol (Miralax) 17 gm DAILYPRN PRN ORAL Constipation 11/28/17 00:15 12/28/17 00:14 Vancomycin HCl (Vanco rx to dose) 1 ea DAILY PRN MISC Per rx protocol 11/30/17 13:15 12/30/17 13:14 Vancomycin/Sodium Chloride 250 ml @ 166.667 mls/hr Q12HR@0800,2000 IVPB 11/30/17 20:00 12/05/17 19:59 12/01/17 08:15 ODETTE SMILEY Dec 01, 2017 10:01
--- NOTE | 2017-12-01 10:12 | General Surgery Progress Note ---
General Surgery-Progress Note Subjective Procedure Performed debridement of left hip decubitus ulcer Symptoms: improved Additional Comments no acute events. wounds evaluated this AM Objective Last 24 Hour Vital Signs Date Time Temp Pulse Resp B/P (MAP) Pulse Ox O2 Delivery O2 Flow Rate FiO2 12/01/17 08:47 99 25 40 12/01/17 08:18 106 104/57 12/01/17 08:12 103 12/01/17 08:00 5.0 40 12/01/17 08:00 97.7 107 20 104/57 100 Mechanical Ventilator 40 12/01/17 06:37 101 23 40 12/01/17 05:50 101 23 40 12/01/17 04:00 5.0 40 12/01/17 04:00 97.7 103 20 110/65 100 Mechanical Ventilator 40 12/01/17 04:00 99 12/01/17 03:40 102 23 40 12/01/17 01:19 106 12/01/17 01:05 109 23 40 12/01/17 00:00 5.0 40 12/01/17 00:00 97.5 110 20 118/69 100 Mechanical Ventilator 40 11/30/17 22:53 109 23 40 11/30/17 21:32 109 23 40 11/30/17 20:24 112 132/79 11/30/17 20:00 99.5 110 20 119/70 100 Mechanical Ventilator 40 11/30/17 20:00 5.0 40 11/30/17 20:00 110 11/30/17 18:52 110 23 40 11/30/17 17:28 111 23 40 11/30/17 16:00 104 11/30/17 16:00 5.0 40 11/30/17 16:00 99.9 110 23 130/57 100 Mechanical Ventilator 40 11/30/17 15:23 108 28 40 11/30/17 13:29 112 27 40 11/30/17 12:43 98.4 90 27 132/60 97 Mechanical Ventilator 40 11/30/17 12:00 5.0 40 11/30/17 12:00 92 11/30/17 11:29 89 23 40 I&O Intake and Output 11/30/17 12/01/17 19:00 07:00 Intake Total 1742.5 ml 1448.334 ml Output Total 1000 ml 800 ml Balance 742.5 ml 648.334 ml IV Total 1097.5 ml 633.334 ml Tube Feeding 595 ml 715 ml Other 50 ml 100 ml Output Urine Total 1000 ml 800 ml Dressing: saturated Wound: clean Cardiovascular: RSR Respiratory: clear Abdomen: soft, non-tender, present bowel sounds Extremities: no tenderness Laboratory Tests Test 12/01/17 04:45 White Blood Count 10.7 K/UL (4.8-10.8) Red Blood Count 3.17 M/UL (4.70-6.10) L Hemoglobin 9.0 G/DL (14.2-18.0) L Hematocrit 28.0 % (42.0-52.0) L Mean Corpuscular Volume 88 FL (80-99) Mean Corpuscular Hemoglobin 28.4 PG (27.0-31.0) Mean Corpuscular Hemoglobin Concent 32.1 G/DL (32.0-36.0) Red Cell Distribution Width 14.9 % (11.6-14.8) H Platelet Count 361 K/UL (150-450) Mean Platelet Volume 7.4 FL (6.5-10.1) Neutrophils (%) (Auto) 75.3 % (45.0-75.0) H Lymphocytes (%) (Auto) 14.7 % (20.0-45.0) L Monocytes (%) (Auto) 6.3 % (1.0-10.0) Eosinophils (%) (Auto) 3.5 % (0.0-3.0) H Basophils (%) (Auto) 0.3 % (0.0-2.0) Sodium Level 139 MMOL/L (136-145) Potassium Level 3.7 MMOL/L (3.5-5.1) Chloride Level 107 MMOL/L (98-107) Carbon Dioxide Level 23 MMOL/L (21-32) Anion Gap 9 mmol/L (5-15) Blood Urea Nitrogen 18 mg/dL (7-18) Creatinine 0.9 MG/DL (0.55-1.30) Estimat Glomerular Filtration Rate > 60 mL/min (>60) Glucose Level 107 MG/DL (74-106) H Calcium Level 8.8 MG/DL (8.5-10.1) Phosphorus Level 2.8 MG/DL (2.5-4.9) Magnesium Level 1.9 MG/DL (1.8-2.4) Total Bilirubin 0.2 MG/DL (0.2-1.0) Aspartate Amino Transf (AST/SGOT) 30 U/L (15-37) Alanine Aminotransferase (ALT/SGPT) 84 U/L (12-78) H Alkaline Phosphatase 123 U/L (46-116) H Total Protein 7.4 G/DL (6.4-8.2) Albumin 1.3 G/DL (3.4-5.0) L Globulin 6.1 g/dL Albumin/Globulin Ratio 0.2 (1.0-2.7) L Plan Problems: (1) Pressure ulcer, hip, left, unstageable Assessment & Plan: 57M multiple medical comorbidities currently here for medical care and management. has multiple decubitus ulcer. left hip ulcer requiring intervention s/p debridement at bedside. All wounds evaluated with nursing staff this AM. right hip and sacral wounds clean with small areas of eschar. left hip wound improved after debridement and now only has some dry eschar. heel ulcers okay as well. no further debridement necessary at this time. will need snf wound care. will likely need more debridement in future but for now wounds stable. no signs of active infection from wounds. -continue with washing, cleaning, and dressings wounds for now will follow with recs thank you for this consultation Derek Dong Dec 01, 2017 10:12
[2017-12-01 12:00] VITALS: BP 118/73
--- NOTE | 2017-12-01 12:04 | Infectious Diseases Prog Note ---
Assessment/Plan Assessment/Plan Assessment: UTI : PSA ? Pneumonia :ACB and PSA xray : No radiographic evidence of acute cardiopulmonary disease. L hip necrotic/unstagelable decubitus ulcer SP Debridement Wnd Cx: ACB and Kleb and Strp GrG Fever- SP -CXR: No radiographic evidence of acute cardiopulmonary disease. Unchanged linear atelectasis/scarring in the right lung. No new focal consolidation. Leukocytosis, increased Plan: -Continue IV Vancomycin # 4 and add Merrem d # 1 and DC IV Zosyn d# 3 -f/u V duplex BLE -obtain U/a with Reflex and 2 sets of Bcx. -f/u cx ( Wnd and Sp ) -Monitor CBC/BMP Subjective Allergies: Coded Allergies: No Known Allergies (Unverified , 03/07/17) Subjective afebrile Objective Vital Signs Last 24 Hour Vital Signs Date Time Temp Pulse Resp B/P (MAP) Pulse Ox O2 Delivery O2 Flow Rate FiO2 12/01/17 11:02 99 20 40 12/01/17 08:47 99 25 40 12/01/17 08:18 106 104/57 12/01/17 08:12 103 12/01/17 08:00 5.0 40 12/01/17 08:00 97.7 107 20 104/57 100 Mechanical Ventilator 40 12/01/17 06:37 101 23 40 12/01/17 05:50 101 23 40 12/01/17 04:00 5.0 40 12/01/17 04:00 97.7 103 20 110/65 100 Mechanical Ventilator 40 12/01/17 04:00 99 12/01/17 03:40 102 23 40 12/01/17 01:19 106 12/01/17 01:05 109 23 40 12/01/17 00:00 5.0 40 12/01/17 00:00 97.5 110 20 118/69 100 Mechanical Ventilator 40 11/30/17 22:53 109 23 40 11/30/17 21:32 109 23 40 11/30/17 20:24 112 132/79 11/30/17 20:00 99.5 110 20 119/70 100 Mechanical Ventilator 40 11/30/17 20:00 5.0 40 11/30/17 20:00 110 11/30/17 18:52 110 23 40 11/30/17 17:28 111 23 40 11/30/17 16:00 104 11/30/17 16:00 5.0 40 11/30/17 16:00 99.9 110 23 130/57 100 Mechanical Ventilator 40 11/30/17 15:23 108 28 40 18 13:29 112 27 40 11/30/17 12:43 98.4 90 27 132/60 97 Mechanical Ventilator 40 11/30/17 12:00 5.0 40 11/30/17 12:00 92 Height (Feet): 5 Height (Inches): 8.00 Weight (Pounds): 159 Microbiology Date/Time Source Procedure Growth Status 11/28/17 18:45 Blood Blood Culture - Preliminary Resulted 11/28/17 18:30 Blood Blood Culture - Preliminary Resulted 11/29/17 04:45 Urine,Clean Catch Urine Culture - Final Pseudomonas Aeruginosa Complete Laboratory Tests Test 12/01/17 04:45 White Blood Count 10.7 K/UL (4.8-10.8) Red Blood Count 3.17 M/UL (4.70-6.10) L Hemoglobin 9.0 G/DL (14.2-18.0) L Hematocrit 28.0 % (42.0-52.0) L Mean Corpuscular Volume 88 FL (80-99) Mean Corpuscular Hemoglobin 28.4 PG (27.0-31.0) Mean Corpuscular Hemoglobin Concent 32.1 G/DL (32.0-36.0) Red Cell Distribution Width 14.9 % (11.6-14.8) H Platelet Count 361 K/UL (150-450) Mean Platelet Volume 7.4 FL (6.5-10.1) Neutrophils (%) (Auto) 75.3 % (45.0-75.0) H Lymphocytes (%) (Auto) 14.7 % (20.0-45.0) L Monocytes (%) (Auto) 6.3 % (1.0-10.0) Eosinophils (%) (Auto) 3.5 % (0.0-3.0) H Basophils (%) (Auto) 0.3 % (0.0-2.0) Sodium Level 139 MMOL/L (136-145) Potassium Level 3.7 MMOL/L (3.5-5.1) Chloride Level 107 MMOL/L (98-107) Carbon Dioxide Level 23 MMOL/L (21-32) Anion Gap 9 mmol/L (5-15) Blood Urea Nitrogen 18 mg/dL (7-18) Creatinine 0.9 MG/DL (0.55-1.30) Estimat Glomerular Filtration Rate > 60 mL/min (>60) Glucose Level 107 MG/DL (74-106) H Calcium Level 8.8 MG/DL (8.5-10.1) Phosphorus Level 2.8 MG/DL (2.5-4.9) Magnesium Level 1.9 MG/DL (1.8-2.4) Total Bilirubin 0.2 MG/DL (0.2-1.0) Aspartate Amino Transf (AST/SGOT) 30 U/L (15-37) Alanine Aminotransferase (ALT/SGPT) 84 U/L (12-78) H Alkaline Phosphatase 123 U/L (46-116) H Total Protein 7.4 G/DL (6.4-8.2) Albumin 1.3 G/DL (3.4-5.0) L Globulin 6.1 g/dL Albumin/Globulin Ratio 0.2 (1.0-2.7) L Current Medications Medications (Trade) Dose Ordered Sig/Tameka Route PRN Reason Start Time Stop Time Status Last Admin Dose Admin Acetaminophen (Tylenol) 650 mg Q4H PRN GT FEVER 11/28/17 02:15 12/28/17 02:14 11/30/17 05:21 Albuterol/ Ipratropium (Albuterol/ Ipratropium) 3 ml Q4H PRN HHN Shortness of Breath 11/28/17 00:15 12/03/17 00:14 Amiodarone HCl (Cordarone) 200 mg DAILY GT 11/28/17 09:00 12/28/17 08:59 12/01/17 08:15 Carvedilol (Coreg) 3.125 mg Q12HR GT 11/28/17 09:00 12/28/17 08:59 11/30/17 20:24 Dextrose 1,000 ml @ 50 mls/hr Q20H IV 11/30/17 10:00 12/30/17 09:59 12/01/17 06:00 Dextrose (Dextrose 50%) STAT PRN IV Hypoglycemia 11/28/17 00:15 12/28/17 00:14 Heparin Sodium (Porcine) (Heparin 5000 units/ml) 5,000 units EVERY 12 HOURS SUBQ 11/28/17 09:00 12/28/17 08:59 12/01/17 08:18 Levetiracetam (Keppra) 500 mg Q12HR GT 11/28/17 09:00 12/28/17 08:59 12/01/17 08:15 Lorazepam (Ativan 2mg/ml 1ml) 2 mg Q2H PRN IV For Anxiety 11/28/17 00:15 12/05/17 00:14 Morphine Sulfate (Morphine Sulfate) 4 mg Q4H PRN IVP Severe Pain (Pain Scale 7-10) 11/28/17 00:15 12/05/17 00:14 12/01/17 00:38 Ondansetron HCl (Zofran) 4 mg Q6H PRN IVP Nausea & Vomiting 11/28/17 00:15 12/28/17 00:14 Pantoprazole (Protonix) 40 mg DAILY IV 11/28/17 09:00 12/28/17 08:59 12/01/17 08:15 Piperacillin Sod/ Tazobactam Sod 3.375 gm/Sodium Chloride 110 ml @ 27.5 mls/hr Q12HR@0400,1600 IVPB 11/29/17 16:00 12/06/17 15:59 12/01/17 04:13 Polyethylene Glycol (Miralax) 17 gm DAILYPRN PRN ORAL Constipation 11/28/17 00:15 12/28/17 00:14 Vancomycin HCl (Vanco rx to dose) 1 ea DAILY PRN MISC Per rx protocol 11/30/17 13:15 12/30/17 13:14 Vancomycin/Sodium Chloride 250 ml @ 166.667 mls/hr Q12HR@0800,2000 IVPB 11/30/17 20:00 12/05/17 19:59 12/01/17 08:15 MARCUS PA M.D. Dec 01, 2017 12:04
[2017-12-01] MEDS: Meropenem 1 GM in NS 55 ML IVPB SCH ×2 (13:45→21:35)
[2017-12-01 16:00] VITALS: BP 113/68
[2017-12-01 20:00] VITALS: BP 115/68
[2017-12-02] VITALS (7 sets, daily range): BP systolic 109–126; BP diastolic 62–76
[2017-12-02 04:53] LABS: BASOPHILS % (AUTO) 0.1 % (0.0-2.0); EOSINOPHILS % (AUTO) 4.3 % (0.0-3.0); HEMATOCRIT 30.9 % (42.0-52.0); HEMOGLOBIN 9.4 G/DL (14.2-18.0); LYMPHOCYTES % (AUTO) 15.2 % (20.0-45.0); MEAN CORPUSCULAR VOLUME 88 FL (80-99); MONOCYTES % (AUTO) 5.5 % (1.0-10.0); NEUTROPHILS % (AUTO) 74.9 % (45.0-75.0); PLATELET COUNT 417 K/UL (150-450); RED BLOOD COUNT 3.51 M/UL (4.70-6.10); RED CELL DISTRIBUTION WIDTH 14.9 % (11.6-14.8); WHITE BLOOD COUNT 11.9 K/UL (4.8-10.8)
[2017-12-02 05:16] LABS: ALANINE AMINOTRANSFERASE 71 U/L (12-78); ALBUMIN 1.4 G/DL (3.4-5.0); ALBUMIN/GLOBULIN RATIO 0.2 (1.0-2.7); ALKALINE PHOSPHATASE 124 U/L (46-116); ANION GAP 8 mmol/L (5-15); ASPARTATE AMINO TRANSFERASE 28 U/L (15-37); BILIRUBIN,TOTAL 0.2 MG/DL (0.2-1.0); BLOOD UREA NITROGEN 21 mg/dL (7-18); CALCIUM 8.7 MG/DL (8.5-10.1); CARBON DIOXIDE 25 MMOL/L (21-32); CHLORIDE 106 MMOL/L (98-107); CREATININE 0.8 MG/DL (0.55-1.30); PHOSPHORUS 2.5 MG/DL (2.5-4.9); SODIUM 138 MMOL/L (136-145)
[2017-12-02] MEDS: Meropenem 1 GM in NS 55 ML IVPB SCH ×3 (06:09→21:30)
[2017-12-02] MEDS: Vancomycin 1250mg/D5W 250ml IVPB SCH (08:09)
[2017-12-02] MEDS: levETIRAcetam 500mg/5ml Liquid GT SCH ×2 (10:42→21:32)
[2017-12-02] MEDS: Pantoprazole Inj IV SCH (10:42)
[2017-12-02] MEDS: Amiodarone 200mg tab GT SCH (10:43)
[2017-12-02] MEDS: Heparin 5000 units/ml inj SUBQ SCH ×2 (10:47→21:34)
--- NOTE | 2017-12-02 10:58 | General Surgery Progress Note ---
General Surgery-Progress Note Subjective Procedure Performed debridement of left hip decubitus ulcer Additional Comments doing okay. no acute events. wound care as planned. Objective Last 24 Hour Vital Signs Date Time Temp Pulse Resp B/P (MAP) Pulse Ox O2 Delivery O2 Flow Rate FiO2 12/02/17 09:10 102 20 40 12/02/17 09:00 102 120/76 12/02/17 08:00 99.0 109 20 120/76 100 Mechanical Ventilator 40 12/02/17 07:36 99 12/02/17 07:01 105 24 40 12/02/17 05:04 106 25 40 12/02/17 04:00 101 12/02/17 04:00 5.0 40 12/02/17 04:00 98.7 109 21 126/74 100 Mechanical Ventilator 40 12/02/17 02:57 103 21 40 12/02/17 01:15 106 22 40 12/02/17 00:00 98.4 108 20 119/65 100 Mechanical Ventilator 40 12/01/17 23:30 109 12/01/17 22:45 105 21 40 12/01/17 21:34 114 119/79 12/01/17 21:16 115 23 40 12/01/17 20:00 5.0 40 12/01/17 20:00 116 12/01/17 20:00 98.4 116 24 115/68 100 Mechanical Ventilator 40 12/01/17 18:42 112 21 40 12/01/17 16:44 102 24 40 12/01/17 16:00 98.1 109 22 113/68 100 Mechanical Ventilator 40 12/01/17 16:00 100 12/01/17 16:00 5.0 40 12/01/17 14:30 100 24 40 12/01/17 12:34 103 27 40 12/01/17 12:00 5.0 40 12/01/17 12:00 98.6 101 22 118/73 100 Mechanical Ventilator 40 12/01/17 11:42 103 12/01/17 11:02 99 20 40 I&O Intake and Output 12/01/17 12/02/17 19:00 07:00 Intake Total 1690.0 ml 1075 ml Output Total 500 ml 900 ml Balance 1190.0 ml 175 ml IV Total 945.0 ml 310 ml Tube Feeding 715 ml 715 ml Other 30 ml 50 ml Output Urine Total 500 ml 900 ml # Bowel Movements 2 Cardiovascular: RSR Respiratory: clear Abdomen: soft, flat, non-tender, present bowel sounds Extremities: no edema Laboratory Tests Test 12/01/17 19:19 12/02/17 03:15 Vancomycin Level Trough 21.4 ug/mL (5.0-12.0) H White Blood Count 11.9 K/UL (4.8-10.8) H Red Blood Count 3.51 M/UL (4.70-6.10) L Hemoglobin 9.4 G/DL (14.2-18.0) L Hematocrit 30.9 % (42.0-52.0) L Mean Corpuscular Volume 88 FL (80-99) Mean Corpuscular Hemoglobin 26.7 PG (27.0-31.0) L Mean Corpuscular Hemoglobin Concent 30.3 G/DL (32.0-36.0) L Red Cell Distribution Width 14.9 % (11.6-14.8) H Platelet Count 417 K/UL (150-450) Mean Platelet Volume 6.8 FL (6.5-10.1) Neutrophils (%) (Auto) 74.9 % (45.0-75.0) Lymphocytes (%) (Auto) 15.2 % (20.0-45.0) L Monocytes (%) (Auto) 5.5 % (1.0-10.0) Eosinophils (%) (Auto) 4.3 % (0.0-3.0) H Basophils (%) (Auto) 0.1 % (0.0-2.0) Sodium Level 138 MMOL/L (136-145) Potassium Level 4.0 MMOL/L (3.5-5.1) Chloride Level 106 MMOL/L (98-107) Carbon Dioxide Level 25 MMOL/L (21-32) Anion Gap 8 mmol/L (5-15) Blood Urea Nitrogen 21 mg/dL (7-18) H Creatinine 0.8 MG/DL (0.55-1.30) Estimat Glomerular Filtration Rate > 60 mL/min (>60) Glucose Level 117 MG/DL (74-106) H Calcium Level 8.7 MG/DL (8.5-10.1) Phosphorus Level 2.5 MG/DL (2.5-4.9) Magnesium Level 1.7 MG/DL (1.8-2.4) L Total Bilirubin 0.2 MG/DL (0.2-1.0) Aspartate Amino Transf (AST/SGOT) 28 U/L (15-37) Alanine Aminotransferase (ALT/SGPT) 71 U/L (12-78) Alkaline Phosphatase 124 U/L (46-116) H Total Protein 7.4 G/DL (6.4-8.2) Albumin 1.4 G/DL (3.4-5.0) L Globulin 6.0 g/dL Albumin/Globulin Ratio 0.2 (1.0-2.7) L Plan Problems: (1) Pressure ulcer, hip, left, unstageable Assessment & Plan: 57M multiple medical comorbidities currently here for medical care and management. has multiple decubitus ulcer. left hip ulcer requiring intervention s/p debridement at bedside. wounds evaluated. right hip and sacral wounds clean with small areas of eschar. left hip wound improved after debridement and now only has some dry eschar. heel ulcers okay as well. no further debridement necessary at this time. will need long term acute care registered nurse wound care. will likely need more debridement in future but for now wounds stable. no signs of active infection from wounds. -continue with washing, cleaning, and dressings wounds for now will follow with recs thank you for this consultation Derek Dong Dec 02, 2017 10:57
--- NOTE | 2017-12-02 12:36 | Pulmonolgy Critical Care Note ---
Critical Care - Asmt/Plan Problems: (1) Acute on chronic respiratory failure (2) Sepsis (3) Atrial fibrillation (4) EF of 30 (5) AICD (automatic cardioverter/defibrillator) present (6) Pressure ulcer, hip, left, unstageable (7) Feeding by G-tube Respiratory: monitor respiratory rate Cardiac: continue to monitor HR/BP Renal: F/U I&O, keep IV fluid Infectious Disease: check cultures, continue antibiotics Gastrointestinal: continue feedings/current rate Endocrine: monitor blood sugar, check TSH, continue sliding scale insulin Hematologic: monitor H/H, transfuse if hgb<8.5 Neurologic: PRN Ativan, keep patient comfortable Affect: PRN ativan Notes Reviewed: jacket changer, renal Discussed with: consultants, 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 - Objective Last 24 Hour Vital Signs Date Time Temp Pulse Resp B/P (MAP) Pulse Ox O2 Delivery O2 Flow Rate FiO2 12/02/17 12:00 5.0 40 12/02/17 12:00 98.8 107 20 109/72 100 Mechanical Ventilator 40 12/02/17 11:17 106 27 40 12/02/17 09:10 102 20 40 12/02/17 09:00 102 120/76 12/02/17 08:00 5.0 40 12/02/17 08:00 99.0 109 20 120/76 100 Mechanical Ventilator 40 12/02/17 07:36 99 12/02/17 07:01 105 24 40 12/02/17 05:04 106 25 40 12/02/17 04:00 101 12/02/17 04:00 5.0 40 12/02/17 04:00 98.7 109 21 126/74 100 Mechanical Ventilator 40 12/02/17 02:57 103 21 40 12/02/17 01:15 106 22 40 12/02/17 00:00 98.4 108 20 119/65 100 Mechanical Ventilator 40 12/01/17 23:30 109 12/01/17 22:45 105 21 40 12/01/17 21:34 114 119/79 12/01/17 21:16 115 23 40 12/01/17 20:00 5.0 40 12/01/17 20:00 116 12/01/17 20:00 98.4 116 24 115/68 100 Mechanical Ventilator 40 12/01/17 18:42 112 21 40 12/01/17 16:44 102 24 40 12/01/17 16:00 98.1 109 22 113/68 100 Mechanical Ventilator 40 12/01/17 16:00 100 12/01/17 16:00 5.0 40 12/01/17 14:30 100 24 40 Status: awake Condition: grave Neck: full ROM Lungs: chest wall tender Heart: HR/BP unstable Abdomen: non-tender, feeding tube Extremities: edema Micro: Microbiology Date/Time Source Procedure Growth Status 11/30/17 14:55 Blood Blood Culture - Preliminary NO GROWTH AFTER 24 HOURS Resulted Critical Care - Subjective Condition: critical IV Access: PICC EKG Rhythm: Sinus Tachycardia FI02: 40 Vent Support Breath Rate: 10 Vent Support Mode: AC Vent Tidal Volume: 600 Sputum Amount: Moderate PEEP: 5.0 PIP: 26 Tube Feeding Amount: 65 I&O: Intake and Output 12/01/17 12/02/17 19:00 07:00 Intake Total 1690.0 ml 1075 ml Output Total 500 ml 900 ml Balance 1190.0 ml 175 ml IV Total 945.0 ml 310 ml Tube Feeding 715 ml 715 ml Other 30 ml 50 ml Output Urine Total 500 ml 900 ml # Bowel Movements 2 Labs: Laboratory Tests Test 12/01/17 19:19 12/02/17 03:15 Vancomycin Level Trough 21.4 ug/mL (5.0-12.0) H White Blood Count 11.9 K/UL (4.8-10.8) H Red Blood Count 3.51 M/UL (4.70-6.10) L Hemoglobin 9.4 G/DL (14.2-18.0) L Hematocrit 30.9 % (42.0-52.0) L Mean Corpuscular Volume 88 FL (80-99) Mean Corpuscular Hemoglobin 26.7 PG (27.0-31.0) L Mean Corpuscular Hemoglobin Concent 30.3 G/DL (32.0-36.0) L Red Cell Distribution Width 14.9 % (11.6-14.8) H Platelet Count 417 K/UL (150-450) Mean Platelet Volume 6.8 FL (6.5-10.1) Neutrophils (%) (Auto) 74.9 % (45.0-75.0) Lymphocytes (%) (Auto) 15.2 % (20.0-45.0) L Monocytes (%) (Auto) 5.5 % (1.0-10.0) Eosinophils (%) (Auto) 4.3 % (0.0-3.0) H Basophils (%) (Auto) 0.1 % (0.0-2.0) Sodium Level 138 MMOL/L (136-145) Potassium Level 4.0 MMOL/L (3.5-5.1) Chloride Level 106 MMOL/L (98-107) Carbon Dioxide Level 25 MMOL/L (21-32) Anion Gap 8 mmol/L (5-15) Blood Urea Nitrogen 21 mg/dL (7-18) H Creatinine 0.8 MG/DL (0.55-1.30) Estimat Glomerular Filtration Rate > 60 mL/min (>60) Glucose Level 117 MG/DL (74-106) H Calcium Level 8.7 MG/DL (8.5-10.1) Phosphorus Level 2.5 MG/DL (2.5-4.9) Magnesium Level 1.7 MG/DL (1.8-2.4) L Total Bilirubin 0.2 MG/DL (0.2-1.0) Aspartate Amino Transf (AST/SGOT) 28 U/L (15-37) Alanine Aminotransferase (ALT/SGPT) 71 U/L (12-78) Alkaline Phosphatase 124 U/L (46-116) H Total Protein 7.4 G/DL (6.4-8.2) Albumin 1.4 G/DL (3.4-5.0) L Globulin 6.0 g/dL Albumin/Globulin Ratio 0.2 (1.0-2.7) L ODETTE SMILEY Dec 02, 2017 12:36
--- NOTE | 2017-12-02 12:41 | Infectious Diseases Prog Note ---
Assessment/Plan Assessment/Plan Assessment: +ve blood cx Staph A UTI : PSA ? Pneumonia :ACB and PSA xray : No radiographic evidence of acute cardiopulmonary disease. L hip necrotic/unstagelable decubitus ulcer SP Debridement 11/29 Wnd Cx: ACB and Kleb and Strp GrG , MRSA Fever- SP -CXR: No radiographic evidence of acute cardiopulmonary disease. Unchanged linear atelectasis/scarring in the right lung. No new focal consolidation. Leukocytosis, improved Plan: -Continue IV Vancomycin # / and add Merrem d # 2/ 1 SP IV Zosyn d# 3 -f/u V duplex BLE -monitor Bcx. -Monitor CBC/BMP Subjective Allergies: Coded Allergies: No Known Allergies (Unverified , 03/07/17) Subjective +ve blood CX Objective Vital Signs Last 24 Hour Vital Signs Date Time Temp Pulse Resp B/P (MAP) Pulse Ox O2 Delivery O2 Flow Rate FiO2 12/02/17 12:00 5.0 40 12/02/17 12:00 98.8 107 20 109/72 100 Mechanical Ventilator 40 12/02/17 11:17 106 27 40 12/02/17 09:10 102 20 40 12/02/17 09:00 102 120/76 12/02/17 08:00 5.0 40 12/02/17 08:00 99.0 109 20 120/76 100 Mechanical Ventilator 40 12/02/17 07:36 99 12/02/17 07:01 105 24 40 12/02/17 05:04 106 25 40 12/02/17 04:00 101 12/02/17 04:00 5.0 40 12/02/17 04:00 98.7 109 21 126/74 100 Mechanical Ventilator 40 12/02/17 02:57 103 21 40 12/02/17 01:15 106 22 40 12/02/17 00:00 98.4 108 20 119/65 100 Mechanical Ventilator 40 12/01/17 23:30 109 12/01/17 22:45 105 21 40 12/01/17 21:34 114 119/79 12/01/17 21:16 115 23 40 12/01/17 20:00 5.0 40 12/01/17 20:00 116 12/01/17 20:00 98.4 116 24 115/68 100 Mechanical Ventilator 40 12/01/17 18:42 112 21 40 12/01/17 16:44 102 24 40 12/01/17 16:00 98.1 109 22 113/68 100 Mechanical Ventilator 40 12/01/17 16:00 100 12/01/17 16:00 5.0 40 12/01/17 14:30 100 24 40 Height (Feet): 5 Height (Inches): 8.00 Weight (Pounds): 161 HEENT: atraumatic Respiratory/Chest: lungs clear Cardiovascular: normal peripheral pulses Abdomen: non distended Microbiology Date/Time Source Procedure Growth Status 11/30/17 14:55 Blood Blood Culture - Preliminary NO GROWTH AFTER 24 HOURS Resulted Laboratory Tests Test 12/01/17 19:19 12/02/17 03:15 Vancomycin Level Trough 21.4 ug/mL (5.0-12.0) H White Blood Count 11.9 K/UL (4.8-10.8) H Red Blood Count 3.51 M/UL (4.70-6.10) L Hemoglobin 9.4 G/DL (14.2-18.0) L Hematocrit 30.9 % (42.0-52.0) L Mean Corpuscular Volume 88 FL (80-99) Mean Corpuscular Hemoglobin 26.7 PG (27.0-31.0) L Mean Corpuscular Hemoglobin Concent 30.3 G/DL (32.0-36.0) L Red Cell Distribution Width 14.9 % (11.6-14.8) H Platelet Count 417 K/UL (150-450) Mean Platelet Volume 6.8 FL (6.5-10.1) Neutrophils (%) (Auto) 74.9 % (45.0-75.0) Lymphocytes (%) (Auto) 15.2 % (20.0-45.0) L Monocytes (%) (Auto) 5.5 % (1.0-10.0) Eosinophils (%) (Auto) 4.3 % (0.0-3.0) H Basophils (%) (Auto) 0.1 % (0.0-2.0) Sodium Level 138 MMOL/L (136-145) Potassium Level 4.0 MMOL/L (3.5-5.1) Chloride Level 106 MMOL/L (98-107) Carbon Dioxide Level 25 MMOL/L (21-32) Anion Gap 8 mmol/L (5-15) Blood Urea Nitrogen 21 mg/dL (7-18) H Creatinine 0.8 MG/DL (0.55-1.30) Estimat Glomerular Filtration Rate > 60 mL/min (>60) Glucose Level 117 MG/DL (74-106) H Calcium Level 8.7 MG/DL (8.5-10.1) Phosphorus Level 2.5 MG/DL (2.5-4.9) Magnesium Level 1.7 MG/DL (1.8-2.4) L Total Bilirubin 0.2 MG/DL (0.2-1.0) Aspartate Amino Transf (AST/SGOT) 28 U/L (15-37) Alanine Aminotransferase (ALT/SGPT) 71 U/L (12-78) Alkaline Phosphatase 124 U/L (46-116) H Total Protein 7.4 G/DL (6.4-8.2) Albumin 1.4 G/DL (3.4-5.0) L Globulin 6.0 g/dL Albumin/Globulin Ratio 0.2 (1.0-2.7) L Current Medications Medications (Trade) Dose Ordered Sig/Tameka Route PRN Reason Start Time Stop Time Status Last Admin Dose Admin Acetaminophen (Tylenol) 650 mg Q4H PRN GT FEVER 11/28/17 02:15 12/28/17 02:14 11/30/17 05:21 Albuterol/ Ipratropium (Albuterol/ Ipratropium) 3 ml Q4H PRN HHN Shortness of Breath 11/28/17 00:15 12/03/17 00:14 Amiodarone HCl (Cordarone) 200 mg DAILY GT 11/28/17 09:00 12/28/17 08:59 12/02/17 10:43 Carvedilol (Coreg) 3.125 mg Q12HR GT 11/28/17 09:00 12/28/17 08:59 12/02/17 09:00 Dextrose 1,000 ml @ 50 mls/hr Q20H IV 11/30/17 10:00 12/30/17 09:59 12/02/17 02:00 Dextrose (Dextrose 50%) STAT PRN IV Hypoglycemia 11/28/17 00:15 12/28/17 00:14 Heparin Sodium (Porcine) (Heparin 5000 units/ml) 5,000 units EVERY 12 HOURS SUBQ 11/28/17 09:00 12/28/17 08:59 12/02/17 10:47 Levetiracetam (Keppra) 500 mg Q12HR GT 11/28/17 09:00 12/28/17 08:59 12/02/17 10:42 Lorazepam (Ativan 2mg/ml 1ml) 2 mg Q2H PRN IV For Anxiety 11/28/17 00:15 12/05/17 00:14 Meropenem 1 gm/ Sodium Chloride 55 ml @ 110 mls/hr Q8HR IVPB 12/01/17 14:00 12/06/17 13:59 12/02/17 06:09 Morphine Sulfate (Morphine Sulfate) 4 mg Q4H PRN IVP Severe Pain (Pain Scale 7-10) 11/28/17 00:15 12/05/17 00:14 12/01/17 00:38 Ondansetron HCl (Zofran) 4 mg Q6H PRN IVP Nausea & Vomiting 11/28/17 00:15 12/28/17 00:14 Pantoprazole (Protonix) 40 mg DAILY IV 11/28/17 09:00 12/28/17 08:59 12/02/17 10:42 Polyethylene Glycol (Miralax) 17 gm DAILYPRN PRN ORAL Constipation 11/28/17 00:15 12/28/17 00:14 Vancomycin HCl (Vanco rx to dose) 1 ea DAILY PRN MISC Per rx protocol 11/30/17 13:15 12/30/17 13:14 Vancomycin HCl/ Dextrose 250 ml @ 166.667 mls/hr Q24H IVPB 12/02/17 08:00 12/07/17 23:59 12/02/17 08:09 MARCUS PA M.D. Dec 02, 2017 12:41
[2017-12-03] VITALS: BP 115/59
[2017-12-03 04:00] VITALS: BP 123/68
[2017-12-03 05:33] LABS: BASOPHILS % (AUTO) 0.4 % (0.0-2.0); HEMATOCRIT 28.7 % (42.0-52.0); HEMOGLOBIN 8.8 G/DL (14.2-18.0); LYMPHOCYTES % (AUTO) 14.1 % (20.0-45.0); MEAN CORPUSCULAR VOLUME 88 FL (80-99); MONOCYTES % (AUTO) 4.3 % (1.0-10.0); NEUTROPHILS % (AUTO) 76.3 % (45.0-75.0); PLATELET COUNT 449 K/UL (150-450); RED BLOOD COUNT 3.25 M/UL (4.70-6.10); RED CELL DISTRIBUTION WIDTH 15.1 % (11.6-14.8); WHITE BLOOD COUNT 12.6 K/UL (4.8-10.8)
[2017-12-03 06:14] LABS: ALANINE AMINOTRANSFERASE 77 U/L (12-78); ALBUMIN 1.3 G/DL (3.4-5.0); ALBUMIN/GLOBULIN RATIO 0.2 (1.0-2.7); ALKALINE PHOSPHATASE 121 U/L (46-116); ANION GAP 9 mmol/L (5-15); ASPARTATE AMINO TRANSFERASE 40 U/L (15-37); BILIRUBIN,TOTAL 0.2 MG/DL (0.2-1.0); BLOOD UREA NITROGEN 17 mg/dL (7-18); CALCIUM 8.8 MG/DL (8.5-10.1); CARBON DIOXIDE 23 MMOL/L (21-32); CHLORIDE 106 MMOL/L (98-107); CREATININE 0.8 MG/DL (0.55-1.30); PHOSPHORUS 2.1 MG/DL (2.5-4.9); SODIUM 137 MMOL/L (136-145)
[2017-12-03] MEDS: Meropenem 1 GM in NS 55 ML IVPB SCH ×3 (06:30→21:25)
[2017-12-03 08:00] VITALS: BP 118/71
[2017-12-03] MEDS: Vancomycin 1250mg/D5W 250ml IVPB SCH (08:57)
[2017-12-03] MEDS: Amiodarone 200mg tab GT SCH (09:58)
[2017-12-03] MEDS: levETIRAcetam 500mg/5ml Liquid GT SCH ×2 (09:58→21:24)
[2017-12-03] MEDS: Pantoprazole Inj IV SCH (09:58)
[2017-12-03] MEDS: Heparin 5000 units/ml inj SUBQ SCH ×2 (10:03→21:26)
[2017-12-03 12:00] VITALS: BP 131/69
--- NOTE | 2017-12-03 12:22 | Pulmonology Progress Note ---
Assessment/Plan Problems: (1) Bacteremia (2) MDRO (multiple drug resistant organisms) resistance (3) Anemia (4) Sepsis (5) AICD (automatic cardioverter/defibrillator) present (6) EF of 30 (7) Feeding by G-tube Respiratory: monitor respiratory rate, adjust FIO2 Cardiac: continue to monitor HR/BP Renal: F/U I&O, keep IV fluid Infectious Disease: check cultures, continue antibiotics Gastrointestinal: continue feedings/current rate Endocrine: monitor blood sugar, check TSH, continue sliding scale insulin Hematologic: monitor H/H, transfuse if hgb<8.5 Neurologic: PRN Ativan, keep patient comfortable Affect: PRN ativan Prophylaxis: Protonix 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, 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 Discussed with: nurses, assistant case manager Subjective ROS Limited/Unobtainable: Yes Allergies: Coded Allergies: No Known Allergies (Unverified , 03/07/17) Objective Last 24 Hour Vital Signs Date Time Temp Pulse Resp B/P (MAP) Pulse Ox O2 Delivery O2 Flow Rate FiO2 12/03/17 12:00 5.0 40 12/03/17 09:58 101 118/71 12/03/17 08:00 5.0 40 12/03/17 08:00 99.5 101 19 118/71 99 Mechanical Ventilator 40 12/03/17 08:00 102 12/03/17 05:21 112 20 40 12/03/17 04:00 108 12/03/17 04:00 98.8 105 22 123/68 100 Mechanical Ventilator 40 12/03/17 04:00 5.0 40 12/03/17 03:09 115 18 40 12/03/17 00:57 102 22 40 12/03/17 00:00 99.7 120 26 115/59 100 Mechanical Ventilator 40 12/03/17 00:00 115 12/03/17 00:00 5.0 40 12/02/17 22:49 105 19 40 12/02/17 21:46 112 22 40 12/02/17 21:32 109 116/62 12/02/17 20:00 108 12/02/17 20:00 98.2 109 22 116/62 100 Mechanical Ventilator 40 12/02/17 20:00 5.0 40 12/02/17 16:45 102 18 40 12/02/17 16:05 102 12/02/17 16:05 5.0 40 12/02/17 16:00 5.0 40 12/02/17 16:00 100 12/02/17 16:00 98.1 105 22 116/72 100 Mechanical Ventilator 40 12/02/17 14:40 99 16 40 12/02/17 12:53 96 22 40 Intake and Output 12/02/17 12/03/17 19:00 07:00 Intake Total 1768.334 ml 1485 ml Output Total 700 ml 850 ml Balance 1068.334 ml 635 ml Free Water 200 ml 100 ml IV Total 788.334 ml 605 ml Tube Feeding 780 ml 780 ml Output Urine Total 700 ml 850 ml # Bowel Movements 1 General Appearance: cachetic HEENT: normocephalic, atraumatic Respiratory/Chest: chest wall non-tender, lungs clear Cardiovascular: normal peripheral pulses, regular rhythm Abdomen: normal bowel sounds, no organomegaly Extremities: no cyanosis 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 Microbiology Date/Time Source Procedure Growth Status 11/30/17 14:55 Blood Blood Culture - Preliminary Resulted Laboratory Tests 12/03/17 03:15: White Blood Count 12.6H, Red Blood Count 3.25L, Hemoglobin 8.8L, Hematocrit 28.7L, Mean Corpuscular Volume 88, Mean Corpuscular Hemoglobin 27.0, Mean Corpuscular Hemoglobin Concent 30.6L, Red Cell Distribution Width 15.1H, Platelet Count 449, Mean Platelet Volume 6.3L, Neutrophils (%) (Auto) 76.3H, Lymphocytes (%) (Auto) 14.1L, Monocytes (%) (Auto) 4.3, Eosinophils (%) (Auto) 5.0H, Basophils (%) (Auto) 0.4, Sodium Level 137, Potassium Level 4.0, Chloride Level 106, Carbon Dioxide Level 23, Anion Gap 9, Blood Urea Nitrogen 17, Creatinine 0.8, Estimat Glomerular Filtration Rate > 60, Glucose Level 116H, Calcium Level 8.8, Phosphorus Level 2.1L, Magnesium Level 1.6L, Total Bilirubin 0.2, Aspartate Amino Transf (AST/SGOT) 40H, Alanine Aminotransferase (ALT/SGPT) 77, Alkaline Phosphatase 121H, Total Protein 7.1, Albumin 1.3L, Globulin 5.8, Albumin/Globulin Ratio 0.2L Current Medications Medications (Trade) Dose Ordered Sig/Tameka Route PRN Reason Start Time Stop Time Status Last Admin Dose Admin Acetaminophen (Tylenol) 650 mg Q4H PRN GT FEVER 11/28/17 02:15 12/28/17 02:14 11/30/17 05:21 Amiodarone HCl (Cordarone) 200 mg DAILY GT 11/28/17 09:00 12/28/17 08:59 12/03/17 09:58 Carvedilol (Coreg) 3.125 mg Q12HR GT 11/28/17 09:00 12/28/17 08:59 12/03/17 09:58 Dextrose 1,000 ml @ 50 mls/hr Q20H IV 11/30/17 10:00 12/30/17 09:59 12/02/17 22:30 Dextrose (Dextrose 50%) STAT PRN IV Hypoglycemia 11/28/17 00:15 12/28/17 00:14 Heparin Sodium (Porcine) (Heparin 5000 units/ml) 5,000 units EVERY 12 HOURS SUBQ 11/28/17 09:00 12/28/17 08:59 12/03/17 10:03 Levetiracetam (Keppra) 500 mg Q12HR GT 11/28/17 09:00 12/28/17 08:59 12/03/17 09:58 Lorazepam (Ativan 2mg/ml 1ml) 2 mg Q2H PRN IV For Anxiety 11/28/17 00:15 12/05/17 00:14 Meropenem 1 gm/ Sodium Chloride 55 ml @ 110 mls/hr Q8HR IVPB 12/01/17 14:00 12/06/17 13:59 12/03/17 06:30 Morphine Sulfate (Morphine Sulfate) 4 mg Q4H PRN IVP Severe Pain (Pain Scale 7-10) 11/28/17 00:15 12/05/17 00:14 12/01/17 00:38 Ondansetron HCl (Zofran) 4 mg Q6H PRN IVP Nausea & Vomiting 11/28/17 00:15 12/28/17 00:14 Pantoprazole (Protonix) 40 mg DAILY IV 11/28/17 09:00 12/28/17 08:59 12/03/17 09:58 Polyethylene Glycol (Miralax) 17 gm DAILYPRN PRN ORAL Constipation 11/28/17 00:15 12/28/17 00:14 Vancomycin HCl (Vanco rx to dose) 1 ea DAILY PRN MISC Per rx protocol 11/30/17 13:15 12/30/17 13:14 Vancomycin HCl/ Dextrose 250 ml @ 166.667 mls/hr Q24H IVPB 12/02/17 08:00 12/07/17 23:59 12/03/17 08:57 ODETTE SMILEY Dec 03, 2017 12:22
--- NOTE | 2017-12-03 12:49 | Infectious Diseases Prog Note ---
Assessment/Plan Assessment/Plan Assessment: +ve blood cx MSStaph A , repeat BlCx : GPC UTI : PSA ? Pneumonia :ACB and PSA xray : No radiographic evidence of acute cardiopulmonary disease. L hip necrotic/unstagelable decubitus ulcer SP Debridement 11/29 Wnd Cx: ACB and Kleb and Strp GrG , MRSA Fever- SP -CXR: No radiographic evidence of acute cardiopulmonary disease. Unchanged linear atelectasis/scarring in the right lung. No new focal consolidation Leukocytosis, mild Plan: -Continue IV Vancomycin # / and add Merrem d # 2/ 1 SP IV Zosyn d# 3 -f/u V duplex BLE -monitor Bcx. -Monitor CBC/BMP\ - 2D Echo Subjective Allergies: Coded Allergies: No Known Allergies (Unverified , 03/07/17) Subjective +ve blood CX again Objective Vital Signs Last 24 Hour Vital Signs Date Time Temp Pulse Resp B/P (MAP) Pulse Ox O2 Delivery O2 Flow Rate FiO2 12/03/17 12:40 99 12/03/17 12:00 5.0 40 12/03/17 12:00 99.8 100 24 131/69 100 40 12/03/17 09:58 101 118/71 12/03/17 08:00 5.0 40 12/03/17 08:00 99.5 101 19 118/71 99 Mechanical Ventilator 40 12/03/17 08:00 102 12/03/17 05:21 112 20 40 12/03/17 04:00 108 12/03/17 04:00 98.8 105 22 123/68 100 Mechanical Ventilator 40 12/03/17 04:00 5.0 40 12/03/17 03:09 115 18 40 12/03/17 00:57 102 22 40 12/03/17 00:00 99.7 120 26 115/59 100 Mechanical Ventilator 40 12/03/17 00:00 115 12/03/17 00:00 5.0 40 12/02/17 22:49 105 19 40 12/02/17 21:46 112 22 40 12/02/17 21:32 109 116/62 12/02/17 20:00 108 12/02/17 20:00 98.2 109 22 116/62 100 Mechanical Ventilator 40 12/02/17 20:00 5.0 40 12/02/17 16:45 102 18 40 12/02/17 16:05 102 12/02/17 16:05 5.0 40 12/02/17 16:00 5.0 40 12/02/17 16:00 100 12/02/17 16:00 98.1 105 22 116/72 100 Mechanical Ventilator 40 12/02/17 14:40 99 16 40 12/02/17 12:53 96 22 40 Height (Feet): 5 Height (Inches): 8.00 Weight (Pounds): 160 HEENT: anicteric Respiratory/Chest: no accessory muscle use Cardiovascular: normal rate Abdomen: soft, non tender Microbiology Date/Time Source Procedure Growth Status 11/30/17 14:55 Blood Blood Culture - Preliminary Resulted Laboratory Tests Test 12/03/17 03:15 White Blood Count 12.6 K/UL (4.8-10.8) H Red Blood Count 3.25 M/UL (4.70-6.10) L Hemoglobin 8.8 G/DL (14.2-18.0) L Hematocrit 28.7 % (42.0-52.0) L Mean Corpuscular Volume 88 FL (80-99) Mean Corpuscular Hemoglobin 27.0 PG (27.0-31.0) Mean Corpuscular Hemoglobin Concent 30.6 G/DL (32.0-36.0) L Red Cell Distribution Width 15.1 % (11.6-14.8) H Platelet Count 449 K/UL (150-450) Mean Platelet Volume 6.3 FL (6.5-10.1) L Neutrophils (%) (Auto) 76.3 % (45.0-75.0) H Lymphocytes (%) (Auto) 14.1 % (20.0-45.0) L Monocytes (%) (Auto) 4.3 % (1.0-10.0) Eosinophils (%) (Auto) 5.0 % (0.0-3.0) H Basophils (%) (Auto) 0.4 % (0.0-2.0) Sodium Level 137 MMOL/L (136-145) Potassium Level 4.0 MMOL/L (3.5-5.1) Chloride Level 106 MMOL/L (98-107) Carbon Dioxide Level 23 MMOL/L (21-32) Anion Gap 9 mmol/L (5-15) Blood Urea Nitrogen 17 mg/dL (7-18) Creatinine 0.8 MG/DL (0.55-1.30) Estimat Glomerular Filtration Rate > 60 mL/min (>60) Glucose Level 116 MG/DL (74-106) H Calcium Level 8.8 MG/DL (8.5-10.1) Phosphorus Level 2.1 MG/DL (2.5-4.9) L Magnesium Level 1.6 MG/DL (1.8-2.4) L Total Bilirubin 0.2 MG/DL (0.2-1.0) Aspartate Amino Transf (AST/SGOT) 40 U/L (15-37) H Alanine Aminotransferase (ALT/SGPT) 77 U/L (12-78) Alkaline Phosphatase 121 U/L (46-116) H Total Protein 7.1 G/DL (6.4-8.2) Albumin 1.3 G/DL (3.4-5.0) L Globulin 5.8 g/dL Albumin/Globulin Ratio 0.2 (1.0-2.7) L Current Medications Medications (Trade) Dose Ordered Sig/Tameka Route PRN Reason Start Time Stop Time Status Last Admin Dose Admin Acetaminophen (Tylenol) 650 mg Q4H PRN GT FEVER 11/28/17 02:15 12/28/17 02:14 11/30/17 05:21 Amiodarone HCl (Cordarone) 200 mg DAILY GT 11/28/17 09:00 12/28/17 08:59 12/03/17 09:58 Carvedilol (Coreg) 3.125 mg Q12HR GT 11/28/17 09:00 12/28/17 08:59 12/03/17 09:58 Dextrose 1,000 ml @ 50 mls/hr Q20H IV 11/30/17 10:00 12/30/17 09:59 12/02/17 22:30 Dextrose (Dextrose 50%) STAT PRN IV Hypoglycemia 11/28/17 00:15 12/28/17 00:14 Heparin Sodium (Porcine) (Heparin 5000 units/ml) 5,000 units EVERY 12 HOURS SUBQ 11/28/17 09:00 12/28/17 08:59 12/03/17 10:03 Levetiracetam (Keppra) 500 mg Q12HR GT 11/28/17 09:00 12/28/17 08:59 12/03/17 09:58 Lorazepam (Ativan 2mg/ml 1ml) 2 mg Q2H PRN IV For Anxiety 11/28/17 00:15 12/05/17 00:14 Meropenem 1 gm/ Sodium Chloride 55 ml @ 110 mls/hr Q8HR IVPB 12/01/17 14:00 12/06/17 13:59 12/03/17 06:30 Morphine Sulfate (Morphine Sulfate) 4 mg Q4H PRN IVP Severe Pain (Pain Scale 7-10) 11/28/17 00:15 12/05/17 00:14 12/01/17 00:38 Ondansetron HCl (Zofran) 4 mg Q6H PRN IVP Nausea & Vomiting 11/28/17 00:15 12/28/17 00:14 Pantoprazole (Protonix) 40 mg DAILY IV 11/28/17 09:00 12/28/17 08:59 12/03/17 09:58 Polyethylene Glycol (Miralax) 17 gm DAILYPRN PRN ORAL Constipation 11/28/17 00:15 12/28/17 00:14 Vancomycin HCl (Vanco rx to dose) 1 ea DAILY PRN MISC Per rx protocol 11/30/17 13:15 12/30/17 13:14 Vancomycin HCl/ Dextrose 250 ml @ 166.667 mls/hr Q24H IVPB 12/02/17 08:00 12/07/17 23:59 12/03/17 08:57 MARCUS AP M.D. Dec 03, 2017 12:49
[2017-12-03 16:00] VITALS: BP 129/63
[2017-12-03 20:00] VITALS: BP 136/76
[2017-12-04] VITALS: BP 108/74
[2017-12-04 04:00] VITALS: BP 112/67
[2017-12-04] MEDS: Meropenem 1 GM in NS 55 ML IVPB SCH ×3 (05:56→20:42)
[2017-12-04 08:00] VITALS: BP 120/71
[2017-12-04] MEDS: Vancomycin 1250mg/D5W 250ml IVPB SCH (08:00)
[2017-12-04] MEDS: levETIRAcetam 500mg/5ml Liquid GT SCH ×2 (09:06→20:42)
[2017-12-04] MEDS: Amiodarone 200mg tab GT SCH (09:06)
[2017-12-04] MEDS: Pantoprazole Inj IV SCH (09:07)
[2017-12-04] MEDS: Heparin 5000 units/ml inj SUBQ SCH ×2 (09:08→20:47)
--- NOTE | 2017-12-04 10:33 | Pulmonology Progress Note ---
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 Discussed with: nurses, consultants Subjective ROS Limited/Unobtainable: No Constitutional: Reports: no symptoms HEENT: Repors: no symptoms Allergies: Coded Allergies: No Known Allergies (Unverified , 03/07/17) Objective Last 24 Hour Vital Signs Date Time Temp Pulse Resp B/P (MAP) Pulse Ox O2 Delivery O2 Flow Rate FiO2 12/04/17 09:06 110 120/71 12/04/17 08:48 110 24 40 12/04/17 08:00 40 12/04/17 08:00 99.8 109 28 120/71 100 Mechanical Ventilator 40 12/04/17 08:00 112 12/04/17 07:12 106 24 40 12/04/17 05:28 100 24 40 12/04/17 04:00 110 12/04/17 04:00 5.0 40 12/04/17 04:00 98.3 103 20 112/67 100 Mechanical Ventilator 40 12/04/17 03:20 104 22 40 12/04/17 01:27 99 20 40 12/04/17 00:00 98.1 100 18 108/74 100 Mechanical Ventilator 40 12/04/17 00:00 5.0 40 12/04/17 00:00 105 12/03/17 23:14 103 22 40 12/03/17 21:24 100 129/63 12/03/17 21:18 100 20 40 12/03/17 20:00 5.0 40 12/03/17 20:00 97 12/03/17 20:00 98.6 102 20 136/76 96 Mechanical Ventilator 40 12/03/17 19:28 104 22 40 12/03/17 16:00 99.8 101 20 129/63 99 40 12/03/17 16:00 5.0 40 12/03/17 16:00 94 12/03/17 12:40 99 12/03/17 12:00 5.0 40 12/03/17 12:00 99.8 100 24 131/69 100 40 Intake and Output 12/03/17 12/04/17 19:00 07:00 Intake Total 2043.34 ml 1425 ml Output Total 800 ml 1400 ml Balance 1243.34 ml 25 ml Free Water 200 ml IV Total 883.34 ml 710 ml Tube Feeding 780 ml 715 ml Other 180 ml Output Urine Total 800 ml 1400 ml # Bowel Movements 1 HEENT: normocephalic, atraumatic Respiratory/Chest: chest wall non-tender, lungs clear, chest wall tender Abdomen: normal bowel sounds, soft, non tender Extremities: no clubbing Skin: no rash Current Medications Medications (Trade) Dose Ordered Sig/Tameka Route PRN Reason Start Time Stop Time Status Last Admin Dose Admin Acetaminophen (Tylenol) 650 mg Q4H PRN GT FEVER 11/28/17 02:15 12/28/17 02:14 11/30/17 05:21 Amiodarone HCl (Cordarone) 200 mg DAILY GT 11/28/17 09:00 12/28/17 08:59 12/04/17 09:06 Carvedilol (Coreg) 3.125 mg Q12HR GT 11/28/17 09:00 12/28/17 08:59 12/04/17 09:06 Dextrose 1,000 ml @ 50 mls/hr Q20H IV 11/30/17 10:00 12/30/17 09:59 12/03/17 18:00 Dextrose (Dextrose 50%) STAT PRN IV Hypoglycemia 11/28/17 00:15 12/28/17 00:14 Heparin Sodium (Porcine) (Heparin 5000 units/ml) 5,000 units EVERY 12 HOURS SUBQ 11/28/17 09:00 12/28/17 08:59 12/04/17 09:08 Levetiracetam (Keppra) 500 mg Q12HR GT 11/28/17 09:00 12/28/17 08:59 12/04/17 09:06 Lorazepam (Ativan 2mg/ml 1ml) 2 mg Q2H PRN IV For Anxiety 11/28/17 00:15 12/05/17 00:14 Meropenem 1 gm/ Sodium Chloride 55 ml @ 110 mls/hr Q8HR IVPB 12/01/17 14:00 12/06/17 13:59 12/04/17 05:56 Morphine Sulfate (Morphine Sulfate) 4 mg Q4H PRN IVP Severe Pain (Pain Scale 7-10) 11/28/17 00:15 12/05/17 00:14 12/01/17 00:38 Ondansetron HCl (Zofran) 4 mg Q6H PRN IVP Nausea & Vomiting 11/28/17 00:15 12/28/17 00:14 Pantoprazole (Protonix) 40 mg DAILY IV 11/28/17 09:00 12/28/17 08:59 12/04/17 09:07 Polyethylene Glycol (Miralax) 17 gm DAILYPRN PRN ORAL Constipation 11/28/17 00:15 12/28/17 00:14 Vancomycin HCl (Vanco rx to dose) 1 ea DAILY PRN MISC Per rx protocol 11/30/17 13:15 12/30/17 13:14 Vancomycin HCl/ Dextrose 250 ml @ 166.667 mls/hr Q24H IVPB 12/02/17 08:00 12/07/17 23:59 12/04/17 08:00 ODETTE SMILEY Dec 04, 2017 10:33
[2017-12-04 12:00] VITALS: BP 112/52
[2017-12-04 16:00] VITALS: BP 128/64
[2017-12-04 20:00] VITALS: BP 99/62
[2017-12-04] MEDS: Morphine Sulfate 4mg/ml Inj IVP PRN (20:49)
--- NOTE | 2017-12-04 21:35 | Infectious Diseases Prog Note ---
Assessment/Plan Assessment/Plan Assessment: +ve blood cx MSStaph A , repeat BlCx : GPC UTI : PSA ? Pneumonia :ACB and PSA xray : No radiographic evidence of acute cardiopulmonary disease. L hip necrotic/unstagelable decubitus ulcer SP Debridement 11/29 Wnd Cx: ACB and Kleb and Strp GrG , MRSA Fever- SP -CXR: No radiographic evidence of acute cardiopulmonary disease. Unchanged linear atelectasis/scarring in the right lung. No new focal consolidation Leukocytosis, mild Plan: -Continue IV Vancomycin # and add Merrem d # 3 / 11/22 SP IV Zosyn d# 3 -f/u V duplex BLE -monitor Bcx. -Monitor CBC/BMP\ - 2D Echo Subjective Constitutional: Denies: no symptoms, fever, chills, fatigue, anorexia, drenching sweats, other Allergies: Coded Allergies: No Known Allergies (Unverified , 03/07/17) Subjective +ve blood CX again Objective Vital Signs Last 24 Hour Vital Signs Date Time Temp Pulse Resp B/P (MAP) Pulse Ox O2 Delivery O2 Flow Rate FiO2 12/04/17 21:27 101 16 40 12/04/17 20:42 101 128/64 12/04/17 18:59 101 18 40 12/04/17 16:52 102 24 40 12/04/17 16:00 102 12/04/17 16:00 40 12/04/17 16:00 98.2 102 24 128/64 100 Mechanical Ventilator 40 12/04/17 15:45 98 21 40 12/04/17 13:11 98 21 40 12/04/17 12:00 40 12/04/17 12:00 98 12/04/17 12:00 98.8 104 30 112/52 100 Mechanical Ventilator 40 12/04/17 10:31 95 25 40 12/04/17 09:06 110 120/71 12/04/17 08:48 110 24 40 12/04/17 08:00 40 12/04/17 08:00 99.8 109 28 120/71 100 Mechanical Ventilator 40 12/04/17 08:00 112 12/04/17 07:12 106 24 40 12/04/17 05:28 100 24 40 12/04/17 04:00 110 12/04/17 04:00 5.0 40 12/04/17 04:00 98.3 103 20 112/67 100 Mechanical Ventilator 40 12/04/17 03:20 104 22 40 12/04/17 01:27 99 20 40 12/04/17 00:00 98.1 100 18 108/74 100 Mechanical Ventilator 40 12/04/17 00:00 5.0 40 12/04/17 00:00 105 12/03/17 23:14 103 22 40 Height (Feet): 5 Height (Inches): 8.00 Weight (Pounds): 159 HEENT: atraumatic Respiratory/Chest: no respiratory distress Cardiovascular: regular rhythm Abdomen: no organomegaly Current Medications Medications (Trade) Dose Ordered Sig/Tameka Route PRN Reason Start Time Stop Time Status Last Admin Dose Admin Acetaminophen (Tylenol) 650 mg Q4H PRN GT FEVER 11/28/17 02:15 12/28/17 02:14 11/30/17 05:21 Amiodarone HCl (Cordarone) 200 mg DAILY GT 11/28/17 09:00 12/28/17 08:59 12/04/17 09:06 Carvedilol (Coreg) 3.125 mg Q12HR GT 11/28/17 09:00 12/28/17 08:59 12/04/17 20:42 Dextrose 1,000 ml @ 50 mls/hr Q20H IV 11/30/17 10:00 12/30/17 09:59 12/04/17 14:00 Dextrose (Dextrose 50%) STAT PRN IV Hypoglycemia 11/28/17 00:15 12/28/17 00:14 Heparin Sodium (Porcine) (Heparin 5000 units/ml) 5,000 units EVERY 12 HOURS SUBQ 11/28/17 09:00 12/28/17 08:59 12/04/17 20:47 Lansoprazole (Prevacid) 30 mg DAILY GT 12/05/17 09:00 01/04/18 08:59 Levetiracetam (Keppra) 500 mg Q12HR GT 11/28/17 09:00 12/28/17 08:59 12/04/17 20:42 Lorazepam (Ativan 2mg/ml 1ml) 2 mg Q2H PRN IV For Anxiety 11/28/17 00:15 12/05/17 00:14 Meropenem 1 gm/ Sodium Chloride 55 ml @ 110 mls/hr Q8HR IVPB 12/01/17 14:00 12/06/17 13:59 12/04/17 20:42 Morphine Sulfate (Morphine Sulfate) 4 mg Q4H PRN IVP Severe Pain (Pain Scale 7-10) 11/28/17 00:15 12/05/17 00:14 12/04/17 20:49 Ondansetron HCl (Zofran) 4 mg Q6H PRN IVP Nausea & Vomiting 11/28/17 00:15 12/28/17 00:14 Polyethylene Glycol (Miralax) 17 gm DAILYPRN PRN ORAL Constipation 11/28/17 00:15 12/28/17 00:14 Vancomycin HCl (Vanco rx to dose) 1 ea DAILY PRN MISC Per rx protocol 11/30/17 13:15 12/30/17 13:14 Vancomycin HCl/ Dextrose 250 ml @ 166.667 mls/hr Q24H IVPB 12/02/17 08:00 12/07/17 23:59 12/04/17 08:00 MARCUS PA M.D. Dec 04, 2017 21:35
[2017-12-05] VITALS: BP 106/69
[2017-12-05 04:00] VITALS: BP 104/74
[2017-12-05] MEDS: Meropenem 1 GM in NS 55 ML IVPB SCH ×3 (05:30→21:04)
[2017-12-05 07:42] LABS: BASOPHILS % (AUTO) 0.4 % (0.0-2.0); EOSINOPHILS % (AUTO) 6.1 % (0.0-3.0); HEMATOCRIT 29.8 % (42.0-52.0); HEMOGLOBIN 9.3 G/DL (14.2-18.0); MEAN CORPUSCULAR VOLUME 87 FL (80-99); MONOCYTES % (AUTO) 7.5 % (1.0-10.0); NEUTROPHILS % (AUTO) 72.1 % (45.0-75.0); PLATELET COUNT 499 K/UL (150-450); RED BLOOD COUNT 3.41 M/UL (4.70-6.10); RED CELL DISTRIBUTION WIDTH 14.9 % (11.6-14.8); WHITE BLOOD COUNT 11.4 K/UL (4.8-10.8)
[2017-12-05 08:00] VITALS: BP 110/65
[2017-12-05 08:02] LABS: ALANINE AMINOTRANSFERASE 79 U/L (12-78); ALBUMIN 1.5 G/DL (3.4-5.0); ALBUMIN/GLOBULIN RATIO 0.2 (1.0-2.7); ALKALINE PHOSPHATASE 132 U/L (46-116); ANION GAP 5 mmol/L (5-15); ASPARTATE AMINO TRANSFERASE 40 U/L (15-37); BILIRUBIN,TOTAL 0.2 MG/DL (0.2-1.0); BLOOD UREA NITROGEN 18 mg/dL (7-18); CARBON DIOXIDE 27 MMOL/L (21-32); CHLORIDE 102 MMOL/L (98-107); CREATININE 0.8 MG/DL (0.55-1.30); PHOSPHORUS 2.6 MG/DL (2.5-4.9); POTASSIUM 4.6 MMOL/L (3.5-5.1); SODIUM 134 MMOL/L (136-145)
[2017-12-05] MEDS: Amiodarone 200mg tab GT SCH (08:48)
[2017-12-05] MEDS: levETIRAcetam 500mg/5ml Liquid GT SCH ×2 (08:48→21:05)
[2017-12-05] MEDS: Vancomycin 1250mg/D5W 250ml IVPB SCH (08:48)
[2017-12-05] MEDS: Heparin 5000 units/ml inj SUBQ SCH ×2 (08:49→21:10)
[2017-12-05] MEDS ORDERED: NS 275ml ONE ×2 (10:57→19:37)
--- NOTE | 2017-12-05 11:45 | Pulmonology Progress Note ---
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 Discussed with: nurses, consultants Subjective ROS Limited/Unobtainable: Yes Allergies: Coded Allergies: No Known Allergies (Unverified , 03/07/17) Objective Last 24 Hour Vital Signs Date Time Temp Pulse Resp B/P (MAP) Pulse Ox O2 Delivery O2 Flow Rate FiO2 12/05/17 10:41 105 21 40 12/05/17 08:55 105 21 40 12/05/17 08:48 103 110/65 12/05/17 08:00 40 12/05/17 08:00 97.7 103 20 110/65 100 Mechanical Ventilator 40 12/05/17 08:00 104 12/05/17 07:41 105 17 40 12/05/17 05:31 104 16 40 12/05/17 04:00 40 12/05/17 04:00 99 12/05/17 04:00 98.3 100 20 104/74 100 Mechanical Ventilator 40 12/05/17 03:12 101 18 40 12/05/17 00:50 96 17 40 12/05/17 00:00 98.7 100 20 106/69 100 Mechanical Ventilator 40 12/05/17 00:00 98 12/04/17 22:49 102 18 40 12/04/17 21:27 101 16 40 12/04/17 20:42 101 128/64 12/04/17 20:00 98.6 102 20 99/62 100 Mechanical Ventilator 40 12/04/17 20:00 40 12/04/17 20:00 99 12/04/17 18:59 101 18 40 12/04/17 16:52 102 24 40 12/04/17 16:00 102 12/04/17 16:00 40 12/04/17 16:00 98.2 102 24 128/64 100 Mechanical Ventilator 40 12/04/17 15:45 98 21 40 12/04/17 13:11 98 21 40 12/04/17 12:00 40 12/04/17 12:00 98 12/04/17 12:00 98.8 104 30 112/52 100 Mechanical Ventilator 40 Intake and Output 12/04/17 12/05/17 19:00 07:00 Intake Total 1730.000 ml 1590 ml Output Total 1700 ml 1000 ml Balance 30.000 ml 590 ml Free Water 50 ml 100 ml IV Total 850.000 ml 710 ml Tube Feeding 780 ml 780 ml Other 50 ml Output Urine Total 1700 ml 1000 ml Stool Total 0 ml General Appearance: cachetic HEENT: normocephalic, atraumatic Respiratory/Chest: chest wall non-tender, lungs clear Cardiovascular: normal peripheral pulses, normal rate Abdomen: normal bowel sounds, no organomegaly Genitourinary: normal external genitalia Extremities: no clubbing Skin: no ulcers Microbiology Date/Time Source Procedure Growth Status 12/04/17 06:20 Blood Blood Culture - Preliminary NO GROWTH AFTER 24 HOURS Resulted 12/04/17 06:10 Blood Blood Culture - Preliminary NO GROWTH AFTER 24 HOURS Resulted Laboratory Tests 12/05/17 07:15: White Blood Count 11.4H, Red Blood Count 3.41L, Hemoglobin 9.3L, Hematocrit 29.8L, Mean Corpuscular Volume 87, Mean Corpuscular Hemoglobin 27.3, Mean Corpuscular Hemoglobin Concent 31.2L, Red Cell Distribution Width 14.9H, Platelet Count 499H, Mean Platelet Volume 6.1L, Neutrophils (%) (Auto) 72.1, Lymphocytes (%) (Auto) 14.0L, Monocytes (%) (Auto) 7.5, Eosinophils (%) (Auto) 6.1H, Basophils (%) (Auto) 0.4, Sodium Level 134L, Potassium Level 4.6, Chloride Level 102, Carbon Dioxide Level 27, Anion Gap 5, Blood Urea Nitrogen 18 , Creatinine 0.8, Estimat Glomerular Filtration Rate > 60, Glucose Level 114H, Calcium Level 9.0, Phosphorus Level 2.6, Magnesium Level 1.7L, Total Bilirubin 0.2, Aspartate Amino Transf (AST/SGOT) 40H, Alanine Aminotransferase (ALT/SGPT) 79H, Alkaline Phosphatase 132H, Total Protein 7.8, Albumin 1.5L, Globulin 6.3, Albumin/Globulin Ratio 0.2L, Vancomycin Level Trough 18.4H Current Medications Medications (Trade) Dose Ordered Sig/Tameka Route PRN Reason Start Time Stop Time Status Last Admin Dose Admin Acetaminophen (Tylenol) 650 mg Q4H PRN GT FEVER 11/28/17 02:15 12/28/17 02:14 11/30/17 05:21 Amiodarone HCl (Cordarone) 200 mg DAILY GT 11/28/17 09:00 12/28/17 08:59 12/05/17 08:48 Carvedilol (Coreg) 3.125 mg Q12HR GT 11/28/17 09:00 12/28/17 08:59 12/05/17 08:48 Dextrose 1,000 ml @ 50 mls/hr Q20H IV 11/30/17 10:00 12/30/17 09:59 12/05/17 10:11 Dextrose (Dextrose 50%) STAT PRN IV Hypoglycemia 11/28/17 00:15 12/28/17 00:14 Heparin Sodium (Porcine) (Heparin 5000 units/ml) 5,000 units EVERY 12 HOURS SUBQ 11/28/17 09:00 12/28/17 08:59 12/05/17 08:49 Lansoprazole (Prevacid) 30 mg DAILY GT 12/05/17 09:00 01/04/18 08:59 12/05/17 08:48 Levetiracetam (Keppra) 500 mg Q12HR GT 11/28/17 09:00 12/28/17 08:59 12/05/17 08:48 Meropenem 1 gm/ Sodium Chloride 55 ml @ 110 mls/hr Q8HR IVPB 12/01/17 14:00 12/06/17 13:59 12/05/17 05:30 Ondansetron HCl (Zofran) 4 mg Q6H PRN IVP Nausea & Vomiting 11/28/17 00:15 12/28/17 00:14 Polyethylene Glycol (Miralax) 17 gm DAILYPRN PRN ORAL Constipation 11/28/17 00:15 12/28/17 00:14 Vancomycin HCl (Vanco rx to dose) 1 ea DAILY PRN MISC Per rx protocol 11/30/17 13:15 12/30/17 13:14 Vancomycin HCl/ Dextrose 250 ml @ 166.667 mls/hr Q24H IVPB 12/02/17 08:00 12/07/17 23:59 12/05/17 08:48 ODETTE SMILEY Dec 05, 2017 11:45
[2017-12-05 12:00] VITALS: BP 98/72
--- NOTE | 2017-12-05 12:06 | Wound Nurse Progress Note ---
Wound RN Progress Note Wound Consult #1 Left buttock extending to left ischial tuberosity unstageable pressure ulcer #2 Left lateral malleolus stage IV pressure ulcer #3 Left lateral mid foot DTI pressure ulcer #4 Right trochanter unstageable pressure ulcer #5 Right buttock extending to right right ischial tuberosity unstageable pressure ulcer #6 Sacrococcygeal stage IV pressure ulcer #7 Right scapula unstageable dry yellow scab pressure with surrounding skin full thickness scar tissue #8 Right shoulder DTI pressure ulcer #9 Left lateral big toe stage III pressure ulcer #10 Left lateral 1st metatarsal head DTI pressure ulcer #11 Right lateral mid foot DTI pressure ulcer #12 Left lateral and dorsal foot scattered DTI pressure ulcer #13 Right lateral 5th toe DTI pressure ulcer #14 Right lateral 5th toe DTI pressure ulcer #15 Left medial malleolus unstageable pressure ulcer #16 Left medial knee stage III pressure ulcer #17 Left Trochanter unstageable necrotic pressure ulcer #18 Left elbow stage III pressure ulcer #19 Left ear healing stage III pressure ulcer #20 Right ear full thickness scar tissue Reassessed this Pt today. No deterioration noted. Wound debridement done on left trochanter by Dr Dong. Good progress noted. will cont same wound acre treatment and recommendations below Recommendation -Local wound care per protocol -Keep clean and dry -Turn and reposition -Optimize nutrition -Low air loss P200 mattress -Offload both heels -Heel protector on both heels -Possible sharp debridement on left trochanter. Spoke to Dr Moses. Dr Moses stated he will refer Pt to a Dr to evaluate the pressure ulcers. -Assess and f/u accordingly for any changeKENN Barnes RN Dec 05, 2017 12:06
--- NOTE | 2017-12-05 13:04 | Infectious Diseases Prog Note ---
Assessment/Plan Assessment/Plan Assessment: +ve blood cx MSStaph A , repeat BlCx : P 12/04 UTI : PSA ? Pneumonia :ACB and PSA xray : No radiographic evidence of acute cardiopulmonary disease. L hip necrotic/unstagelable decubitus ulcer SP Debridement 11/29 Wnd Cx: ACB and Kleb and Strp GrG , MRSA Fever- SP -CXR: No radiographic evidence of acute cardiopulmonary disease. Unchanged linear atelectasis/scarring in the right lung. No new focal consolidation Leukocytosis, mild transaminitis , mild Hep C Ab + Plan: -Continue IV Vancomycin # -21 and Merrem d # 1 SP IV Zosyn d# 3 -monitor Bcx. -Monitor CBC/BMP\ - 2D Echo ( cancelled to upper Ext contracture , called [facility] lab to re attempt ) - Bone scan ro osteo of lt hip - DW RN to ask Surg to re debrid the Lt hip wound ( necrotic wound + ) will hold DC for documentation of clearance of bacteremia and and wups are complete, dw Subjective Allergies: Coded Allergies: No Known Allergies (Unverified , 03/07/17) Subjective Afebrile Objective Vital Signs Last 24 Hour Vital Signs Date Time Temp Pulse Resp B/P (MAP) Pulse Ox O2 Delivery O2 Flow Rate FiO2 12/05/17 12:30 110 17 40 12/05/17 10:41 105 21 40 12/05/17 08:55 105 21 40 12/05/17 08:48 103 110/65 12/05/17 08:00 40 12/05/17 08:00 97.7 103 20 110/65 100 Mechanical Ventilator 40 12/05/17 08:00 104 12/05/17 07:41 105 17 40 12/05/17 05:31 104 16 40 12/05/17 04:00 40 12/05/17 04:00 99 12/05/17 04:00 98.3 100 20 104/74 100 Mechanical Ventilator 40 12/05/17 03:12 101 18 40 12/05/17 00:50 96 17 40 12/05/17 00:00 98.7 100 20 106/69 100 Mechanical Ventilator 40 12/05/17 00:00 98 12/04/17 22:49 102 18 40 12/04/17 21:27 101 16 40 12/04/17 20:42 101 128/64 12/04/17 20:00 98.6 102 20 99/62 100 Mechanical Ventilator 40 12/04/17 20:00 40 12/04/17 20:00 99 12/04/17 18:59 101 18 40 12/04/17 16:52 102 24 40 12/04/17 16:00 102 12/04/17 16:00 40 12/04/17 16:00 98.2 102 24 128/64 100 Mechanical Ventilator 40 12/04/17 15:45 98 21 40 12/04/17 13:11 98 21 40 Height (Feet): 5 Height (Inches): 8.00 Weight (Pounds): 115 HEENT: normocephalic Respiratory/Chest: no respiratory distress Cardiovascular: regular rhythm Microbiology Date/Time Source Procedure Growth Status 12/04/17 06:20 Blood Blood Culture - Preliminary NO GROWTH AFTER 24 HOURS Resulted 12/04/17 06:10 Blood Blood Culture - Preliminary NO GROWTH AFTER 24 HOURS Resulted Laboratory Tests Test 12/05/17 07:15 White Blood Count 11.4 K/UL (4.8-10.8) H Red Blood Count 3.41 M/UL (4.70-6.10) L Hemoglobin 9.3 G/DL (14.2-18.0) L Hematocrit 29.8 % (42.0-52.0) L Mean Corpuscular Volume 87 FL (80-99) Mean Corpuscular Hemoglobin 27.3 PG (27.0-31.0) Mean Corpuscular Hemoglobin Concent 31.2 G/DL (32.0-36.0) L Red Cell Distribution Width 14.9 % (11.6-14.8) H Platelet Count 499 K/UL (150-450) H Mean Platelet Volume 6.1 FL (6.5-10.1) L Neutrophils (%) (Auto) 72.1 % (45.0-75.0) Lymphocytes (%) (Auto) 14.0 % (20.0-45.0) L Monocytes (%) (Auto) 7.5 % (1.0-10.0) Eosinophils (%) (Auto) 6.1 % (0.0-3.0) H Basophils (%) (Auto) 0.4 % (0.0-2.0) Sodium Level 134 MMOL/L (136-145) L Potassium Level 4.6 MMOL/L (3.5-5.1) Chloride Level 102 MMOL/L (98-107) Carbon Dioxide Level 27 MMOL/L (21-32) Anion Gap 5 mmol/L (5-15) Blood Urea Nitrogen 18 mg/dL (7-18) Creatinine 0.8 MG/DL (0.55-1.30) Estimat Glomerular Filtration Rate > 60 mL/min (>60) Glucose Level 114 MG/DL (74-106) H Calcium Level 9.0 MG/DL (8.5-10.1) Phosphorus Level 2.6 MG/DL (2.5-4.9) Magnesium Level 1.7 MG/DL (1.8-2.4) L Total Bilirubin 0.2 MG/DL (0.2-1.0) Aspartate Amino Transf (AST/SGOT) 40 U/L (15-37) H Alanine Aminotransferase (ALT/SGPT) 79 U/L (12-78) H Alkaline Phosphatase 132 U/L (46-116) H Total Protein 7.8 G/DL (6.4-8.2) Albumin 1.5 G/DL (3.4-5.0) L Globulin 6.3 g/dL Albumin/Globulin Ratio 0.2 (1.0-2.7) L Vancomycin Level Trough 18.4 ug/mL (5.0-12.0) H Current Medications Medications (Trade) Dose Ordered Sig/Tameka Route PRN Reason Start Time Stop Time Status Last Admin Dose Admin Acetaminophen (Tylenol) 650 mg Q4H PRN GT FEVER 11/28/17 02:15 12/28/17 02:14 11/30/17 05:21 Amiodarone HCl (Cordarone) 200 mg DAILY GT 11/28/17 09:00 12/28/17 08:59 12/05/17 08:48 Carvedilol (Coreg) 3.125 mg Q12HR GT 11/28/17 09:00 12/28/17 08:59 12/05/17 08:48 Dextrose 1,000 ml @ 50 mls/hr Q20H IV 11/30/17 10:00 12/30/17 09:59 12/05/17 10:11 Dextrose (Dextrose 50%) STAT PRN IV Hypoglycemia 11/28/17 00:15 12/28/17 00:14 Heparin Sodium (Porcine) (Heparin 5000 units/ml) 5,000 units EVERY 12 HOURS SUBQ 11/28/17 09:00 12/28/17 08:59 12/05/17 08:49 Lansoprazole (Prevacid) 30 mg DAILY GT 12/05/17 09:00 01/04/18 08:59 12/05/17 08:48 Levetiracetam (Keppra) 500 mg Q12HR GT 11/28/17 09:00 12/28/17 08:59 12/05/17 08:48 Meropenem 1 gm/ Sodium Chloride 55 ml @ 110 mls/hr Q8HR IVPB 12/01/17 14:00 12/06/17 13:59 12/05/17 05:30 Ondansetron HCl (Zofran) 4 mg Q6H PRN IVP Nausea & Vomiting 11/28/17 00:15 12/28/17 00:14 Polyethylene Glycol (Miralax) 17 gm DAILYPRN PRN ORAL Constipation 11/28/17 00:15 12/28/17 00:14 Vancomycin HCl (Vanco rx to dose) 1 ea DAILY PRN MISC Per rx protocol 11/30/17 13:15 12/30/17 13:14 Vancomycin HCl/ Dextrose 250 ml @ 166.667 mls/hr Q24H IVPB 12/02/17 08:00 12/07/17 23:59 12/05/17 08:48 MARCUS PA M.D. Dec 05, 2017 13:04
--- NOTE | 2017-12-05 14:30 | Cardiology Report ---
APPROVED REPORT EXAM: Two-dimensional and M-mode echocardiogram with Doppler and color Doppler. Limited 2-D Echo study due to pts contracted arm and G-tube site blocking scan area. M-mode measurements of left ventricle not obtainable due to cardiac position (angle) Normal left ventricular chamber size. Hypokinesis of basal anteroseptum. Otherwise all other remaining segments appear to have normal wall motion. Left ventricular ejection fraction estimated to be 55 %. Mild left ventricular hypertrophy. No evidence of pericardial or pleural effusion. All other cardiac chambers appear to be within normal limits. Aortic valve leaflets thickened but not well visualized. Thickened mitral valve leaflets with normal excursion. Mitral annulus and aortic root calcification. Pulmonic valve not well visualized. Normal tricuspid valve structure. IVC is not obtainable. Pacemaker wire present in the right side chambers. A color flow and spectral Doppler study was performed and revealed: Trace mitral regurgitation. Mild tricuspid regurgitation. Tricuspid systolic velocities suggests peak right ventricular systolic pressure of 37 mmHg, consistent with mild pulmonary hypertension.
[2017-12-05 16:00] VITALS: BP 103/71
[2017-12-05] MEDS ORDERED: Sterile Water Irrig 1000ml IRRIG ONE (19:37)
[2017-12-05] MEDS ORDERED: NS 500ML ONE (19:37)
[2017-12-05] MEDS ORDERED: Tubing IV Secondary IV ONE (19:37)
[2017-12-05 20:00] VITALS: BP 132/72
[2017-12-05] MEDS: Acetaminophen 650mg/20.3ml GT PRN (21:11)
[2017-12-06] VITALS: BP 132/79
[2017-12-06 04:00] VITALS: BP 130/76
[2017-12-06] MEDS: Meropenem 1 GM in NS 55 ML IVPB SCH ×3 (05:21→20:58)
--- NOTE | 2017-12-06 07:13 | Pulmonology Progress Note ---
Assessment/Plan Assessment/Plan ASSESSMENT Sepsis with bacteremia/Staph aureus VDRF/trach UTI with Pseudomonas possible PNA with Pseudomonas and ACB Infected L hip decub s/p debridement of L hip decub 11/29 Dysphagia, G tube Mild pulmonary HTN Hep C multiple decub ulcers st 3 and 4 POA anemia severe protein calorie malnutrition PLAN OF CARE LIGIA status vent/trach care, pulmonary toile baseline ABG and titrate settings as needed IV abx ID follows repeated bl cx prel negative ECHO no evid of vegetation, EF 55%hypokinesis of anteroseptum, RVSP of 37 c/w mild pulmonary HTN Bone scan r/o OM L hip on Friday Venous Duplex BLE negative DVT GI prophylaxis wound care per surgery ( L hip) and other decub ( as per wound nurse recommendations) Seizure precautions, continue Keppra Continue BB and Amiodarone monitor HH transfuse prn nutritional support with supplements as per diet recom dc plan when cleared by ID ( presume after bone scan on Friday, since last blood cx prel negative) case discussed and evaluated by supervising physician Subjective Allergies: Coded Allergies: No Known Allergies (Unverified , 03/07/17) Subjective afebrile, mild leukocytosis Objective Last 24 Hour Vital Signs Date Time Temp Pulse Resp B/P (MAP) Pulse Ox O2 Delivery O2 Flow Rate FiO2 12/06/17 06:42 90 20 40 12/06/17 04:30 101 24 40 12/06/17 03:03 108 23 40 12/06/17 00:51 99 23 40 12/06/17 00:00 40 12/06/17 00:00 98.4 110 25 132/79 100 Mechanical Ventilator 40 12/06/17 00:00 111 12/05/17 22:50 105 21 40 12/05/17 21:41 99.0 12/05/17 21:05 102 132/72 12/05/17 20:41 102 22 40 12/05/17 20:00 40 12/05/17 20:00 114 12/05/17 20:00 99.0 85 25 132/72 100 Mechanical Ventilator 40 12/05/17 19:39 111 12/05/17 18:55 117 12/05/17 18:48 108 21 40 12/05/17 16:57 111 23 40 12/05/17 16:00 99.4 111 25 103/71 100 Mechanical Ventilator 40 12/05/17 16:00 40 12/05/17 16:00 114 12/05/17 14:27 114 24 40 12/05/17 12:30 110 17 40 12/05/17 12:00 98.2 109 22 98/72 100 Mechanical Ventilator 40 12/05/17 12:00 40 12/05/17 12:00 107 12/05/17 10:41 105 21 40 12/05/17 08:55 105 21 40 12/05/17 08:48 103 110/65 12/05/17 08:00 40 12/05/17 08:00 97.7 103 20 110/65 100 Mechanical Ventilator 40 12/05/17 08:00 104 12/05/17 07:41 105 17 40 Intake and Output 12/05/17 12/06/17 19:00 07:00 Intake Total 1775.000 ml 570 ml Output Total 1000 ml 350 ml Balance 775.000 ml 220 ml Free Water 90 ml 50 ml IV Total 905.000 ml Tube Feeding 780 ml 520 ml Output Urine Total 1000 ml 350 ml General Appearance: no acute distress, cachetic, other - vent dependent, chronically ill looking AA male ; vent AC 600-40%-10 HEENT: normocephalic, atraumatic, status post trach - Portex#8, secretions moderate yellow thick Respiratory/Chest: lungs clear, other - L chest AICD Cardiovascular: normal rate, no JVD, tachycardia - ST on tele 100-110 Abdomen: normal bowel sounds, soft, non tender, other - G tube Extremities: no edema, other - contracted 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: abnormal gait - bedridden, other - poorly responsive Musculoskeletal: atrophy Microbiology Date/Time Source Procedure Growth Status 12/04/17 06:20 Blood Blood Culture - Preliminary NO GROWTH AFTER 24 HOURS Resulted 12/04/17 06:10 Blood Blood Culture - Preliminary NO GROWTH AFTER 24 HOURS Resulted Laboratory Tests 12/05/17 07:15: White Blood Count 11.4H, Red Blood Count 3.41L, Hemoglobin 9.3L, Hematocrit 29.8L, Mean Corpuscular Volume 87, Mean Corpuscular Hemoglobin 27.3, Mean Corpuscular Hemoglobin Concent 31.2L, Red Cell Distribution Width 14.9H, Platelet Count 499H, Mean Platelet Volume 6.1L, Neutrophils (%) (Auto) 72.1, Lymphocytes (%) (Auto) 14.0L, Monocytes (%) (Auto) 7.5, Eosinophils (%) (Auto) 6.1H, Basophils (%) (Auto) 0.4, Sodium Level 134L, Potassium Level 4.6, Chloride Level 102, Carbon Dioxide Level 27, Anion Gap 5, Blood Urea Nitrogen 18 , Creatinine 0.8, Estimat Glomerular Filtration Rate > 60, Glucose Level 114H, Calcium Level 9.0, Phosphorus Level 2.6, Magnesium Level 1.7L, Total Bilirubin 0.2, Aspartate Amino Transf (AST/SGOT) 40H, Alanine Aminotransferase (ALT/SGPT) 79H, Alkaline Phosphatase 132H, Total Protein 7.8, Albumin 1.5L, Globulin 6.3, Albumin/Globulin Ratio 0.2L, Vancomycin Level Trough 18.4H Current Medications Medications (Trade) Dose Ordered Sig/Tameka Route PRN Reason Start Time Stop Time Status Last Admin Dose Admin Acetaminophen (Tylenol) 650 mg Q4H PRN GT FEVER 11/28/17 02:15 12/28/17 02:14 12/05/17 21:11 Amiodarone HCl (Cordarone) 200 mg DAILY GT 11/28/17 09:00 12/28/17 08:59 12/05/17 08:48 Carvedilol (Coreg) 3.125 mg Q12HR GT 11/28/17 09:00 12/28/17 08:59 12/05/17 21:05 Dextrose 1,000 ml @ 50 mls/hr Q20H IV 11/30/17 10:00 12/30/17 09:59 12/06/17 05:21 Dextrose (Dextrose 50%) STAT PRN IV Hypoglycemia 11/28/17 00:15 12/28/17 00:14 Heparin Sodium (Porcine) (Heparin 5000 units/ml) 5,000 units EVERY 12 HOURS SUBQ 11/28/17 09:00 12/28/17 08:59 12/05/17 21:10 Lansoprazole (Prevacid) 30 mg DAILY GT 12/05/17 09:00 01/04/18 08:59 12/05/17 08:48 Levetiracetam (Keppra) 500 mg Q12HR GT 11/28/17 09:00 12/28/17 08:59 12/05/17 21:05 Meropenem 1 gm/ Sodium Chloride 55 ml @ 110 mls/hr Q8HR IVPB 12/01/17 14:00 12/06/17 13:59 12/06/17 05:21 Ondansetron HCl (Zofran) 4 mg Q6H PRN IVP Nausea & Vomiting 11/28/17 00:15 12/28/17 00:14 Polyethylene Glycol (Miralax) 17 gm DAILYPRN PRN ORAL Constipation 11/28/17 00:15 12/28/17 00:14 Vancomycin HCl (Vanco rx to dose) 1 ea DAILY PRN MISC Per rx protocol 11/30/17 13:15 12/30/17 13:14 Vancomycin HCl/ Dextrose 250 ml @ 166.667 mls/hr Q24H IVPB 12/02/17 08:00 12/07/17 23:59 12/05/17 08:48 Diaz (Chiara Torres NP Dec 06, 2017 07:13
[2017-12-06 07:41] LABS: BASOPHILS % (AUTO) 0.6 % (0.0-2.0); EOSINOPHILS % (AUTO) 5.8 % (0.0-3.0); HEMATOCRIT 32.5 % (42.0-52.0); HEMOGLOBIN 10.2 G/DL (14.2-18.0); LYMPHOCYTES % (AUTO) 14.1 % (20.0-45.0); MEAN CORPUSCULAR VOLUME 88 FL (80-99); MONOCYTES % (AUTO) 8.2 % (1.0-10.0); NEUTROPHILS % (AUTO) 71.3 % (45.0-75.0); PLATELET COUNT 509 K/UL (150-450); RED BLOOD COUNT 3.69 M/UL (4.70-6.10); RED CELL DISTRIBUTION WIDTH 15.2 % (11.6-14.8); WHITE BLOOD COUNT 11.2 K/UL (4.8-10.8)
[2017-12-06 08:00] VITALS: BP 119/80
[2017-12-06 08:11] LABS: ALANINE AMINOTRANSFERASE 111 U/L (12-78); ALBUMIN 1.5 G/DL (3.4-5.0); ALBUMIN/GLOBULIN RATIO 0.2 (1.0-2.7); ALKALINE PHOSPHATASE 155 U/L (46-116); ANION GAP 7 mmol/L (5-15); ASPARTATE AMINO TRANSFERASE 69 U/L (15-37); BILIRUBIN,TOTAL 0.3 MG/DL (0.2-1.0); BLOOD UREA NITROGEN 20 mg/dL (7-18); CALCIUM 9.1 MG/DL (8.5-10.1); CARBON DIOXIDE 26 MMOL/L (21-32); CHLORIDE 99 MMOL/L (98-107); CREATININE 0.8 MG/DL (0.55-1.30); PHOSPHORUS 2.8 MG/DL (2.5-4.9); POTASSIUM 4.7 MMOL/L (3.5-5.1); SODIUM 132 MMOL/L (136-145)
[2017-12-06] MEDS: levETIRAcetam 500mg/5ml Liquid GT SCH ×2 (09:06→20:44)
[2017-12-06] MEDS: Amiodarone 200mg tab GT SCH (09:06)
[2017-12-06] MEDS: Vancomycin 1250mg/D5W 250ml IVPB SCH (09:06)
[2017-12-06] MEDS: Heparin 5000 units/ml inj SUBQ SCH ×2 (09:07→20:45)
--- NOTE | 2017-12-06 10:23 | Infectious Diseases Prog Note ---
Assessment/Plan Assessment/Plan Assessment: +ve blood cx MSStaph A , repeat BlCx : NTD 12/04 -?from necrotic wound- r/o endocarditis, r/o pacemaker infection -11/30 3/4 +, 11/30 1+ -2d Echo 12/05: Limited 2-D Echo study due to pts contracted arm and G-tube site blocking scan area: Thickened mitral valve leaflets with normal excursion.Mitral annulus and aortic root calcification. Pulmonic valve not well visualized. Normal tricuspid valve structure.Pacemaker wire present in the right side chambers. UTI : PSA ? Pneumonia :ACB and PSA xray : No radiographic evidence of acute cardiopulmonary disease. L hip necrotic/unstagelable decubitus ulcer SP Debridement 11/29 Wnd Cx: ACB and Kleb and Strp GrG , MRSA Fever- SP -CXR: No radiographic evidence of acute cardiopulmonary disease. Unchanged linear atelectasis/scarring in the right lung. No new focal consolidation Leukocytosis, mild transaminitis , mild Hep C Ab + Plan: -Continue IV Vancomycin # /- and Merrem d # ; f/u repeat Bcx- ? extend IV Vanco duration (?empiric endocarditid tx), may need DO if persistent bacteremia- has pacemaker and possible lead infection 11/22 SP IV Zosyn d# 3 -monitor Bcx. -Monitor CBC/BMP - f/u Bone scan ro osteo of lt hip - DW RN to ask Surg to re debrid the Lt hip wound ( necrotic wound + ) -CBC, CRP am will hold DC for documentation of clearance of bacteremia and and wups are complete, dw CM Subjective Allergies: Coded Allergies: No Known Allergies (Unverified , 03/07/17) Subjective afebrile leukocytosis improved repaet Bcx NTD 2d echo limited- no obvious vegetation Objective Vital Signs Last 24 Hour Vital Signs Date Time Temp Pulse Resp B/P (MAP) Pulse Ox O2 Delivery O2 Flow Rate FiO2 12/06/17 09:06 120 119/80 12/06/17 08:32 120 21 40 12/06/17 08:00 113 12/06/17 08:00 40 12/06/17 08:00 98.6 113 22 119/80 99 Mechanical Ventilator 40 12/06/17 06:42 90 20 40 12/06/17 04:30 101 24 40 12/06/17 04:00 99.0 91 25 130/76 100 Mechanical Ventilator 40 12/06/17 04:00 109 12/06/17 04:00 40 12/06/17 03:03 108 23 40 12/06/17 00:51 99 23 40 12/06/17 00:00 40 12/06/17 00:00 98.4 110 25 132/79 100 Mechanical Ventilator 40 12/06/17 00:00 111 12/05/17 22:50 105 21 40 12/05/17 21:41 99.0 12/05/17 21:05 102 132/72 12/05/17 20:41 102 22 40 12/05/17 20:00 40 12/05/17 20:00 114 12/05/17 20:00 99.0 85 25 132/72 100 Mechanical Ventilator 40 12/05/17 19:39 111 12/05/17 18:55 117 12/05/17 18:48 108 21 40 12/05/17 16:57 111 23 40 12/05/17 16:00 99.4 111 25 103/71 100 Mechanical Ventilator 40 12/05/17 16:00 40 12/05/17 16:00 114 12/05/17 14:27 114 24 40 12/05/17 12:30 110 17 40 12/05/17 12:00 98.2 109 22 98/72 100 Mechanical Ventilator 40 12/05/17 12:00 40 12/05/17 12:00 107 12/05/17 10:41 105 21 40 Height (Feet): 5 Height (Inches): 8.00 Weight (Pounds): 123 Objective HEENT: normocephalic Respiratory/Chest: no respiratory distress Cardiovascular: regular rhythm Microbiology Date/Time Source Procedure Growth Status 12/04/17 06:20 Blood Blood Culture - Preliminary NO GROWTH AFTER 24 HOURS Resulted 12/04/17 06:10 Blood Blood Culture - Preliminary NO GROWTH AFTER 24 HOURS Resulted Laboratory Tests Test 12/06/17 06:50 White Blood Count 11.2 K/UL (4.8-10.8) H Red Blood Count 3.69 M/UL (4.70-6.10) L Hemoglobin 10.2 G/DL (14.2-18.0) L Hematocrit 32.5 % (42.0-52.0) L Mean Corpuscular Volume 88 FL (80-99) Mean Corpuscular Hemoglobin 27.7 PG (27.0-31.0) Mean Corpuscular Hemoglobin Concent 31.4 G/DL (32.0-36.0) L Red Cell Distribution Width 15.2 % (11.6-14.8) H Platelet Count 509 K/UL (150-450) H Mean Platelet Volume 5.8 FL (6.5-10.1) L Neutrophils (%) (Auto) 71.3 % (45.0-75.0) Lymphocytes (%) (Auto) 14.1 % (20.0-45.0) L Monocytes (%) (Auto) 8.2 % (1.0-10.0) Eosinophils (%) (Auto) 5.8 % (0.0-3.0) H Basophils (%) (Auto) 0.6 % (0.0-2.0) Sodium Level 132 MMOL/L (136-145) L Potassium Level 4.7 MMOL/L (3.5-5.1) Chloride Level 99 MMOL/L (98-107) Carbon Dioxide Level 26 MMOL/L (21-32) Anion Gap 7 mmol/L (5-15) Blood Urea Nitrogen 20 mg/dL (7-18) H Creatinine 0.8 MG/DL (0.55-1.30) Estimat Glomerular Filtration Rate > 60 mL/min (>60) Glucose Level 119 MG/DL (74-106) H Calcium Level 9.1 MG/DL (8.5-10.1) Phosphorus Level 2.8 MG/DL (2.5-4.9) Magnesium Level 1.8 MG/DL (1.8-2.4) Total Bilirubin 0.3 MG/DL (0.2-1.0) Aspartate Amino Transf (AST/SGOT) 69 U/L (15-37) H Alanine Aminotransferase (ALT/SGPT) 111 U/L (12-78) H Alkaline Phosphatase 155 U/L (46-116) H Total Protein 8.1 G/DL (6.4-8.2) Albumin 1.5 G/DL (3.4-5.0) L Globulin 6.6 g/dL Albumin/Globulin Ratio 0.2 (1.0-2.7) L Current Medications Medications (Trade) Dose Ordered Sig/Tameka Route PRN Reason Start Time Stop Time Status Last Admin Dose Admin Acetaminophen (Tylenol) 650 mg Q4H PRN GT FEVER 11/28/17 02:15 12/28/17 02:14 12/05/17 21:11 Amiodarone HCl (Cordarone) 200 mg DAILY GT 11/28/17 09:00 12/28/17 08:59 12/06/17 09:06 Carvedilol (Coreg) 3.125 mg Q12HR GT 11/28/17 09:00 12/28/17 08:59 12/06/17 09:06 Dextrose 1,000 ml @ 50 mls/hr Q20H IV 11/30/17 10:00 12/30/17 09:59 12/06/17 05:21 Dextrose (Dextrose 50%) STAT PRN IV Hypoglycemia 11/28/17 00:15 12/28/17 00:14 Heparin Sodium (Porcine) (Heparin 5000 units/ml) 5,000 units EVERY 12 HOURS SUBQ 11/28/17 09:00 12/28/17 08:59 12/06/17 09:07 Lansoprazole (Prevacid) 30 mg DAILY GT 12/05/17 09:00 01/04/18 08:59 12/06/17 09:06 Levetiracetam (Keppra) 500 mg Q12HR GT 11/28/17 09:00 12/28/17 08:59 12/06/17 09:06 Meropenem 1 gm/ Sodium Chloride 55 ml @ 110 mls/hr Q8HR IVPB 12/01/17 14:00 12/06/17 13:59 12/06/17 05:21 Ondansetron HCl (Zofran) 4 mg Q6H PRN IVP Nausea & Vomiting 11/28/17 00:15 12/28/17 00:14 Polyethylene Glycol (Miralax) 17 gm DAILYPRN PRN ORAL Constipation 11/28/17 00:15 12/28/17 00:14 Vancomycin HCl (Vanco rx to dose) 1 ea DAILY PRN MISC Per rx protocol 11/30/17 13:15 12/30/17 13:14 Vancomycin HCl/ Dextrose 250 ml @ 166.667 mls/hr Q24H IVPB 12/02/17 08:00 12/07/17 23:59 12/06/17 09:06 Radha Saini M.D. Dec 06, 2017 10:23
[2017-12-06] MEDS ORDERED: Albuterol/Ipratropium 3ml neb HHN PRN (11:45)
[2017-12-06 12:00] VITALS: BP 107/72
--- NOTE | 2017-12-06 14:00 | General Surgery Progress Note ---
General Surgery-Progress Note Subjective Procedure Performed debridement of left hip decubitus ulcer Additional Comments no acute events. doing stable. leukocytosis improved. afebrile. Objective Last 24 Hour Vital Signs Date Time Temp Pulse Resp B/P (MAP) Pulse Ox O2 Delivery O2 Flow Rate FiO2 12/06/17 13:15 77 19 40 12/06/17 12:00 100.0 108 20 107/72 100 Mechanical Ventilator 40 12/06/17 12:00 40 12/06/17 12:00 104 12/06/17 11:29 78 18 40 12/06/17 09:06 120 119/80 12/06/17 08:32 120 21 40 12/06/17 08:00 113 12/06/17 08:00 40 12/06/17 08:00 98.6 113 22 119/80 99 Mechanical Ventilator 40 12/06/17 06:42 90 20 40 12/06/17 04:30 101 24 40 12/06/17 04:00 99.0 91 25 130/76 100 Mechanical Ventilator 40 12/06/17 04:00 109 12/06/17 04:00 40 12/06/17 03:03 108 23 40 12/06/17 00:51 99 23 40 12/06/17 00:00 40 12/06/17 00:00 98.4 110 25 132/79 100 Mechanical Ventilator 40 12/06/17 00:00 111 12/05/17 22:50 105 21 40 12/05/17 21:41 99.0 12/05/17 21:05 102 132/72 12/05/17 20:41 102 22 40 12/05/17 20:00 40 12/05/17 20:00 114 12/05/17 20:00 99.0 85 25 132/72 100 Mechanical Ventilator 40 12/05/17 19:39 111 12/05/17 18:55 117 12/05/17 18:48 108 21 40 12/05/17 16:57 111 23 40 12/05/17 16:00 99.4 111 25 103/71 100 Mechanical Ventilator 40 12/05/17 16:00 40 12/05/17 16:00 114 12/05/17 14:27 114 24 40 I&O Intake and Output 12/05/17 12/06/17 19:00 07:00 Intake Total 1775.000 ml 937.5 ml Output Total 1000 ml 350 ml Balance 775.000 ml 587.5 ml Free Water 90 ml 50 ml IV Total 905.000 ml 302.5 ml Tube Feeding 780 ml 585 ml Output Urine Total 1000 ml 350 ml Laboratory Tests Test 12/06/17 06:50 White Blood Count 11.2 K/UL (4.8-10.8) H Red Blood Count 3.69 M/UL (4.70-6.10) L Hemoglobin 10.2 G/DL (14.2-18.0) L Hematocrit 32.5 % (42.0-52.0) L Mean Corpuscular Volume 88 FL (80-99) Mean Corpuscular Hemoglobin 27.7 PG (27.0-31.0) Mean Corpuscular Hemoglobin Concent 31.4 G/DL (32.0-36.0) L Red Cell Distribution Width 15.2 % (11.6-14.8) H Platelet Count 509 K/UL (150-450) H Mean Platelet Volume 5.8 FL (6.5-10.1) L Neutrophils (%) (Auto) 71.3 % (45.0-75.0) Lymphocytes (%) (Auto) 14.1 % (20.0-45.0) L Monocytes (%) (Auto) 8.2 % (1.0-10.0) Eosinophils (%) (Auto) 5.8 % (0.0-3.0) H Basophils (%) (Auto) 0.6 % (0.0-2.0) Sodium Level 132 MMOL/L (136-145) L Potassium Level 4.7 MMOL/L (3.5-5.1) Chloride Level 99 MMOL/L (98-107) Carbon Dioxide Level 26 MMOL/L (21-32) Anion Gap 7 mmol/L (5-15) Blood Urea Nitrogen 20 mg/dL (7-18) H Creatinine 0.8 MG/DL (0.55-1.30) Estimat Glomerular Filtration Rate > 60 mL/min (>60) Glucose Level 119 MG/DL (74-106) H Calcium Level 9.1 MG/DL (8.5-10.1) Phosphorus Level 2.8 MG/DL (2.5-4.9) Magnesium Level 1.8 MG/DL (1.8-2.4) Total Bilirubin 0.3 MG/DL (0.2-1.0) Aspartate Amino Transf (AST/SGOT) 69 U/L (15-37) H Alanine Aminotransferase (ALT/SGPT) 111 U/L (12-78) H Alkaline Phosphatase 155 U/L (46-116) H Total Protein 8.1 G/DL (6.4-8.2) Albumin 1.5 G/DL (3.4-5.0) L Globulin 6.6 g/dL Albumin/Globulin Ratio 0.2 (1.0-2.7) L Additional Comments wounds evaluated. left hip wound with dry eschar and tissue. no active signs of infection. no erythema, edema, or drainage. dry black eschar protective. Plan Problems: (1) Pressure ulcer, hip, left, unstageable Assessment & Plan: 57M multiple medical comorbidities currently here for medical care and management. has multiple decubitus ulcer. left hip ulcer requiring intervention s/p debridement at bedside. wounds evaluated. right hip and sacral wounds clean with some eschar. left hip wound improved after debridement and has dry black eschar but no signs of infection. heel ulcers okay as well. no further debridement necessary at this time. will need nursing home wound care. will likely need more debridement in future but for now wounds stable. no signs of active infection from wounds. would keep dry eschar as it is almost protective in his case. if all dry eschar debrided it would leave a large open wound that would be down to the bone and would be very difficult for him to heal from. -continue with washing, cleaning, and dressings wounds for now will follow with recs thank you for this consultation Derek Dong Dec 06, 2017 14:00
[2017-12-06 16:00] VITALS: BP 110/71
[2017-12-06 20:00] VITALS: BP 110/71
[2017-12-06] MEDS: Acetaminophen 650mg/20.3ml GT PRN (20:48)
[2017-12-07] VITALS: BP 100/60
[2017-12-07 04:00] VITALS: BP 110/80
[2017-12-07 06:19] LABS: BASOPHILS % (AUTO) 0.4 % (0.0-2.0); EOSINOPHILS % (AUTO) 6.2 % (0.0-3.0); HEMATOCRIT 31.8 % (42.0-52.0); HEMOGLOBIN 9.9 G/DL (14.2-18.0); LYMPHOCYTES % (AUTO) 17.2 % (20.0-45.0); MEAN CORPUSCULAR VOLUME 87 FL (80-99); MONOCYTES % (AUTO) 8.7 % (1.0-10.0); NEUTROPHILS % (AUTO) 67.5 % (45.0-75.0); PLATELET COUNT 551 K/UL (150-450); RED BLOOD COUNT 3.66 M/UL (4.70-6.10); RED CELL DISTRIBUTION WIDTH 14.7 % (11.6-14.8); WHITE BLOOD COUNT 10.5 K/UL (4.8-10.8)
[2017-12-07] MEDS: Meropenem 1 GM in NS 55 ML IVPB SCH ×3 (06:19→21:34)
[2017-12-07 06:40] LABS: ANION GAP 7 mmol/L (5-15); BLOOD UREA NITROGEN 19 mg/dL (7-18); CALCIUM 8.9 MG/DL (8.5-10.1); CARBON DIOXIDE 26 MMOL/L (21-32); CHLORIDE 97 MMOL/L (98-107); CREATININE 0.7 MG/DL (0.55-1.30); POTASSIUM 5.2 MMOL/L (3.5-5.1); SODIUM 130 MMOL/L (136-145)
[2017-12-07 08:00] VITALS: BP 117/78
[2017-12-07] MEDS ORDERED: Sodium Polystyrene Sulfonate 15gm Powder GT ONE (08:00)
[2017-12-07] MEDS: levETIRAcetam 500mg/5ml Liquid GT SCH ×2 (08:28→20:24)
[2017-12-07] MEDS: Vancomycin 1250mg/D5W 250ml IVPB SCH (08:29)
[2017-12-07] MEDS: Amiodarone 200mg tab GT SCH (08:30)
[2017-12-07] MEDS: Heparin 5000 units/ml inj SUBQ SCH ×2 (08:31→20:26)
--- NOTE | 2017-12-07 11:31 | Pulmonology Progress Note ---
Assessment/Plan Assessment/Plan ASSESSMENT Sepsis with bacteremia/Staph aureus VDRF/trach UTI with Pseudomonas possible PNA with Pseudomonas and ACB Infected L hip decub s/p debridement of L hip decub 11/29 Dysphagia, G tube Mild pulmonary HTN Hep C multiple decub ulcers st 3 and 4 POA anemia requiring blood transfusion severe protein calorie malnutrition e/lyte imbalance mild transaminitis seizure disorder hx of CM ( EF 30%), currently 55 AICD PLAN OF CARE LIGIA status vent/trach care, pulmonary toile baseline ABG stable on current settings, keep as is and titrate settings as needed IV abx ID follows repeated bl cx prel negative ECHO no evid of vegetation, EF 55%hypokinesis of anteroseptum, RVSP of 37 c/w mild pulmonary HTN Bone scan r/o OM L hip on Friday gentle IVF, change IVF to D5NS, Kayexalate x1, monitor lytes in am Venous Duplex BLE negative DVT GI prophylaxis wound care per surgery ( L hip) and other decub ( as per wound nurse recommendations) Seizure precautions, continue Keppra Continue BB and Amiodarone monitor HH transfuse prn nutritional support with supplements as per diet recom dc plan when cleared by ID ( presume after bone scan on Friday, since last blood cx prel negative) case discussed and evaluated by supervising physician Subjective Allergies: Coded Allergies: No Known Allergies (Unverified , 03/07/17) Subjective afebrile, leukocytosis rewolved K-5.2, Na-130 Objective Last 24 Hour Vital Signs Date Time Temp Pulse Resp B/P (MAP) Pulse Ox O2 Delivery O2 Flow Rate FiO2 12/07/17 11:02 99 20 40 12/07/17 09:03 97 20 40 12/07/17 08:30 108 117/78 12/07/17 08:00 99.0 108 20 117/78 100 Mechanical Ventilator 40 12/07/17 08:00 107 12/07/17 08:00 40 12/07/17 06:54 101 20 40 12/07/17 05:13 98 20 40 12/07/17 04:00 103 12/07/17 04:00 98.2 105 16 110/80 100 Mechanical Ventilator 40 12/07/17 04:00 40 12/07/17 03:13 98 20 40 12/07/17 01:26 99 20 40 12/07/17 00:00 40 12/07/17 00:00 98.0 139 20 100/60 100 Mechanical Ventilator 40 12/07/17 00:00 96 12/06/17 23:42 104 20 Mechanical Ventilator 40 12/06/17 23:09 104 20 40 12/06/17 21:39 109 20 40 12/06/17 21:18 100.3 12/06/17 20:44 107 110/71 12/06/17 20:00 40 12/06/17 20:00 107 12/06/17 20:00 97.8 110 22 110/71 100 Mechanical Ventilator 40 12/06/17 19:36 107 20 40 12/06/17 17:01 89 20 40 12/06/17 16:00 100.3 106 22 110/71 100 Mechanical Ventilator 40 12/06/17 16:00 105 12/06/17 16:00 40 12/06/17 14:36 76 20 40 12/06/17 13:15 77 19 40 12/06/17 12:00 100.0 108 20 107/72 100 Mechanical Ventilator 40 12/06/17 12:00 40 12/06/17 12:00 104 Intake and Output 12/06/17 12/07/17 19:00 07:00 Intake Total 1735.000 ml 1352.5 ml Output Total 900 ml 1500 ml Balance 835.000 ml -147.5 ml Free Water 150 ml 100 ml IV Total 805.000 ml 472.5 ml Tube Feeding 780 ml 780 ml Output Urine Total 900 ml 1500 ml Objective General Appearance: no acute distress, cachetic, vent dependent, chronically ill looking AA male ; vent AC 600-40%-10 HEENT: normocephalic, atraumatic, status post trach - Portex#8, secretions moderate yellow thick Respiratory/Chest: lungs clear, other - L chest AICD Cardiovascular: normal rate, no JVD, tachycardia - ST on tele 100-110 Abdomen: normal bowel sounds, soft, non tender, G tube Extremities: no edema, other - contracted 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: abnormal gait - bedridden, eyes open, poorly responsive Musculoskeletal: atrophy Laboratory Tests 12/07/17 05:30: White Blood Count 10.5, Red Blood Count 3.66L, Hemoglobin 9.9L, Hematocrit 31.8L , Mean Corpuscular Volume 87, Mean Corpuscular Hemoglobin 27.0, Mean Corpuscular Hemoglobin Concent 31.0L, Red Cell Distribution Width 14.7, Platelet Count 551H, Mean Platelet Volume 5.8L, Neutrophils (%) (Auto) 67.5, Lymphocytes (%) (Auto) 17.2L, Monocytes (%) (Auto) 8.7, Eosinophils (%) (Auto) 6.2H, Basophils (%) (Auto) 0.4, Sodium Level 130L, Potassium Level 5.2H, Chloride Level 97L, Carbon Dioxide Level 26, Anion Gap 7, Blood Urea Nitrogen 19H, Creatinine 0.7, Estimat Glomerular Filtration Rate > 60, Glucose Level 194H , Calcium Level 8.9, C-Reactive Protein, Quantitative 4.5H 12/07/17 08:20: Arterial Blood pH 7.480H, Arterial Blood Partial Pressure CO2 39.4, Arterial Blood Partial Pressure O2 67.9L, Arterial Blood HCO3 28.9H, Arterial Blood Oxygen Saturation 94.0, Arterial Blood Base Excess 5.1, Son Test Positive Current Medications Medications (Trade) Dose Ordered Sig/Tameka Route PRN Reason Start Time Stop Time Status Last Admin Dose Admin Acetaminophen (Tylenol) 650 mg Q4H PRN GT FEVER 11/28/17 02:15 12/28/17 02:14 12/06/17 20:48 Albuterol/ Ipratropium (Albuterol/ Ipratropium) 3 ml Q4H PRN HHN SHORTNESS OF BREATH 12/06/17 11:45 12/11/17 11:44 Amiodarone HCl (Cordarone) 200 mg DAILY GT 11/28/17 09:00 12/28/17 08:59 12/07/17 08:30 Carvedilol (Coreg) 3.125 mg Q12HR GT 11/28/17 09:00 12/28/17 08:59 12/07/17 08:30 Dextrose 1,000 ml @ 50 mls/hr Q20H IV 11/30/17 10:00 12/30/17 09:59 12/07/17 06:19 Dextrose (Dextrose 50%) STAT PRN IV Hypoglycemia 11/28/17 00:15 12/28/17 00:14 Heparin Sodium (Porcine) (Heparin 5000 units/ml) 5,000 units EVERY 12 HOURS SUBQ 11/28/17 09:00 12/28/17 08:59 12/07/17 08:31 Lansoprazole (Prevacid) 30 mg DAILY GT 12/05/17 09:00 01/04/18 08:59 12/07/17 08:30 Levetiracetam (Keppra) 500 mg Q12HR GT 11/28/17 09:00 12/28/17 08:59 12/07/17 08:28 Meropenem 1 gm/ Sodium Chloride 55 ml @ 110 mls/hr Q8HR IVPB 12/06/17 15:00 12/15/17 23:59 12/07/17 06:19 Ondansetron HCl (Zofran) 4 mg Q6H PRN IVP Nausea & Vomiting 11/28/17 00:15 12/28/17 00:14 Polyethylene Glycol (Miralax) 17 gm DAILYPRN PRN ORAL Constipation 11/28/17 00:15 12/28/17 00:14 Vancomycin HCl (Vanco rx to dose) 1 ea DAILY PRN MISC Per rx protocol 11/30/17 13:15 12/30/17 13:14 Vancomycin HCl/ Dextrose 250 ml @ 166.667 mls/hr Q24H IVPB 12/02/17 08:00 12/12/17 23:59 12/07/17 08:29 Diaz Quigley)Chiara NP Dec 07, 2017 11:31
[2017-12-07 12:00] VITALS: BP 122/83
[2017-12-07] MEDS: D5NS 1,000 ML IV SCH (12:07)
--- NOTE | 2017-12-07 13:22 | General Surgery Progress Note ---
General Surgery-Progress Note Subjective Procedure Performed debridement of left hip decubitus ulcer Additional Comments no acute events. afebrile. leukocytosis resolved. pending bone scan Objective Last 24 Hour Vital Signs Date Time Temp Pulse Resp B/P (MAP) Pulse Ox O2 Delivery O2 Flow Rate FiO2 12/07/17 12:56 88 17 40 12/07/17 12:02 40 12/07/17 12:00 109 12/07/17 12:00 98.9 111 17 122/83 100 Mechanical Ventilator 40 12/07/17 11:02 99 20 40 12/07/17 09:03 97 20 40 12/07/17 08:30 108 117/78 12/07/17 08:00 99.0 108 20 117/78 100 Mechanical Ventilator 40 12/07/17 08:00 107 12/07/17 08:00 40 12/07/17 06:54 101 20 40 12/07/17 05:13 98 20 40 12/07/17 04:00 103 12/07/17 04:00 98.2 105 16 110/80 100 Mechanical Ventilator 40 12/07/17 04:00 40 12/07/17 03:13 98 20 40 12/07/17 01:26 99 20 40 12/07/17 00:00 40 12/07/17 00:00 98.0 139 20 100/60 100 Mechanical Ventilator 40 12/07/17 00:00 96 12/06/17 23:42 104 20 Mechanical Ventilator 40 12/06/17 23:09 104 20 40 12/06/17 21:39 109 20 40 12/06/17 21:18 100.3 12/06/17 20:44 107 110/71 12/06/17 20:00 40 12/06/17 20:00 107 12/06/17 20:00 97.8 110 22 110/71 100 Mechanical Ventilator 40 12/06/17 19:36 107 20 40 12/06/17 17:01 89 20 40 12/06/17 16:00 100.3 106 22 110/71 100 Mechanical Ventilator 40 12/06/17 16:00 105 12/06/17 16:00 40 12/06/17 14:36 76 20 40 I&O Intake and Output 12/06/17 12/07/17 19:00 07:00 Intake Total 1735.000 ml 1352.5 ml Output Total 900 ml 1500 ml Balance 835.000 ml -147.5 ml Free Water 150 ml 100 ml IV Total 805.000 ml 472.5 ml Tube Feeding 780 ml 780 ml Output Urine Total 900 ml 1500 ml Dressing: saturated Wound: clean Drains: none Cardiovascular: RSR Respiratory: clear Abdomen: soft, non-tender, present bowel sounds Extremities: no tenderness Laboratory Tests Test 12/07/17 05:30 12/07/17 08:20 White Blood Count 10.5 K/UL (4.8-10.8) Red Blood Count 3.66 M/UL (4.70-6.10) L Hemoglobin 9.9 G/DL (14.2-18.0) L Hematocrit 31.8 % (42.0-52.0) L Mean Corpuscular Volume 87 FL (80-99) Mean Corpuscular Hemoglobin 27.0 PG (27.0-31.0) Mean Corpuscular Hemoglobin Concent 31.0 G/DL (32.0-36.0) L Red Cell Distribution Width 14.7 % (11.6-14.8) Platelet Count 551 K/UL (150-450) H Mean Platelet Volume 5.8 FL (6.5-10.1) L Neutrophils (%) (Auto) 67.5 % (45.0-75.0) Lymphocytes (%) (Auto) 17.2 % (20.0-45.0) L Monocytes (%) (Auto) 8.7 % (1.0-10.0) Eosinophils (%) (Auto) 6.2 % (0.0-3.0) H Basophils (%) (Auto) 0.4 % (0.0-2.0) Sodium Level 130 MMOL/L (136-145) L Potassium Level 5.2 MMOL/L (3.5-5.1) H Chloride Level 97 MMOL/L (98-107) L Carbon Dioxide Level 26 MMOL/L (21-32) Anion Gap 7 mmol/L (5-15) Blood Urea Nitrogen 19 mg/dL (7-18) H Creatinine 0.7 MG/DL (0.55-1.30) Estimat Glomerular Filtration Rate > 60 mL/min (>60) Glucose Level 194 MG/DL (74-106) H Calcium Level 8.9 MG/DL (8.5-10.1) C-Reactive Protein, Quantitative 4.5 mg/dL (0.00-0.90) H Arterial Blood pH 7.480 (7.350-7.450) Arterial Blood Partial Pressure CO2 39.4 mmHg (35.0-45.0) Arterial Blood Partial Pressure O2 67.9 mmHg (75.0-100.0) L Arterial Blood HCO3 28.9 mmol/L (22.0-26.0) H Arterial Blood Oxygen Saturation 94.0 % (92.0-98.0) Arterial Blood Base Excess 5.1 Son Test Positive Plan Problems: (1) Pressure ulcer, hip, left, unstageable Assessment & Plan: 57M multiple medical comorbidities currently here for medical care and management. has multiple decubitus ulcer. left hip ulcer requiring intervention s/p debridement at bedside. wounds evaluated. right hip and sacral wounds clean with some eschar. left hip wound improved after debridement and has dry black eschar but no signs of infection. heel ulcers okay as well. no further debridement necessary at this time. 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 will likely need more debridement in future but for now wounds stable. no signs of active infection from wounds. would keep dry eschar as it is almost protective in his case. if all dry eschar debrided it would leave a large open wound that would be down to the bone and would be very difficult for him to heal from. afebrile, leukocytosis resolved. -continue with washing, cleaning, and dressings wounds for now -pending bone scan will follow with recs thank you for this consultation Derek Dong Dec 07, 2017 13:22
[2017-12-07 16:00] VITALS: BP 107/72
[2017-12-07 20:00] VITALS: BP 117/63
[2017-12-08] VITALS: BP 118/70
[2017-12-08 04:00] VITALS: BP 108/69
[2017-12-08] MEDS: Meropenem 1 GM in NS 55 ML IVPB SCH ×2 (06:00→13:31)
[2017-12-08 08:00] VITALS: BP 115/66
[2017-12-08 08:17] LABS: BASOPHILS % (AUTO) 0.6 % (0.0-2.0); EOSINOPHILS % (AUTO) 4.5 % (0.0-3.0); HEMATOCRIT 30.2 % (42.0-52.0); HEMOGLOBIN 9.1 G/DL (14.2-18.0); LYMPHOCYTES % (AUTO) 24.4 % (20.0-45.0); MEAN CORPUSCULAR VOLUME 88 FL (80-99); MONOCYTES % (AUTO) 6.7 % (1.0-10.0); NEUTROPHILS % (AUTO) 63.8 % (45.0-75.0); PLATELET COUNT 541 K/UL (150-450); RED BLOOD COUNT 3.42 M/UL (4.70-6.10); WHITE BLOOD COUNT 12.1 K/UL (4.8-10.8)
[2017-12-08 08:44] LABS: ANION GAP 7 mmol/L (5-15); BLOOD UREA NITROGEN 19 mg/dL (7-18); CALCIUM 8.8 MG/DL (8.5-10.1); CARBON DIOXIDE 27 MMOL/L (21-32); CHLORIDE 103 MMOL/L (98-107); CREATININE 0.8 MG/DL (0.55-1.30); POTASSIUM 3.1 MMOL/L (3.5-5.1); SODIUM 137 MMOL/L (136-145)
[2017-12-08] MEDS: Amiodarone 200mg tab GT SCH (09:02)
[2017-12-08] MEDS: levETIRAcetam 500mg/5ml Liquid GT SCH (09:02)
[2017-12-08] MEDS: Heparin 5000 units/ml inj SUBQ SCH (09:02)
[2017-12-08] MEDS: Vancomycin 1250mg/D5W 250ml IVPB SCH (10:13)
[2017-12-08] MEDS: D5NS 1,000 ML IV SCH (11:00)
--- NOTE | 2017-12-08 11:35 | Pulmonology Progress Note ---
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, renal Discussed with: nurses, consultants Subjective ROS Limited/Unobtainable: Yes Constitutional: Reports: no symptoms HEENT: Repors: no symptoms Respiratory: Reports: no symptoms Allergies: Coded Allergies: No Known Allergies (Unverified , 03/07/17) Objective Last 24 Hour Vital Signs Date Time Temp Pulse Resp B/P (MAP) Pulse Ox O2 Delivery O2 Flow Rate FiO2 12/08/17 11:15 105 17 40 12/08/17 09:12 91 17 40 12/08/17 09:02 108 115/66 12/08/17 08:00 106 12/08/17 08:00 40 12/08/17 08:00 98.4 108 18 115/66 100 Mechanical Ventilator 40 12/08/17 07:21 75 20 40 12/08/17 05:03 90 17 40 12/08/17 04:00 40 12/08/17 04:00 110 12/08/17 04:00 98.1 110 18 108/69 100 Mechanical Ventilator 40 12/08/17 03:05 89 19 40 12/08/17 01:07 94 18 40 12/08/17 00:00 97.9 117 21 118/70 100 Mechanical Ventilator 40 12/08/17 00:00 114 12/07/17 22:42 86 23 40 12/07/17 21:20 93 18 40 12/07/17 20:25 122 117/72 12/07/17 20:00 40 12/07/17 20:00 98.2 120 17 117/63 100 Mechanical Ventilator 40 12/07/17 20:00 122 12/07/17 19:04 87 21 40 12/07/17 16:42 94 19 40 12/07/17 16:00 40 12/07/17 16:00 98.7 114 17 107/72 100 Mechanical Ventilator 40 12/07/17 16:00 114 12/07/17 15:27 91 18 40 12/07/17 12:56 88 17 40 12/07/17 12:02 40 12/07/17 12:00 109 12/07/17 12:00 98.9 111 17 122/83 100 Mechanical Ventilator 40 Intake and Output 12/07/17 12/08/17 19:00 07:00 Intake Total 1560.000 ml 1525 ml Output Total 1025 ml 400 ml Balance 535.000 ml 1125 ml Free Water 150 ml 100 ml IV Total 630.000 ml 710 ml Tube Feeding 780 ml 715 ml Output Urine Total 1025 ml 400 ml General Appearance: WD/WN HEENT: normocephalic Respiratory/Chest: lungs clear, normal breath sounds Cardiovascular: normal peripheral pulses, normal rate Abdomen: normal bowel sounds, soft, non tender Genitourinary: normal external genitalia Extremities: no cyanosis Skin: no lesions 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: 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 normal, no motor/sensory deficits, normal mood/affect Lymphatic: no neck adenopathy Musculoskeletal: normal muscle bulk Laboratory Tests 12/08/17 07:55: White Blood Count 12.1H, Red Blood Count 3.42L, Hemoglobin 9.1L, Hematocrit 30.2L, Mean Corpuscular Volume 88, Mean Corpuscular Hemoglobin 26.7L, Mean Corpuscular Hemoglobin Concent 30.1L, Red Cell Distribution Width 15.0H, Platelet Count 541H, Mean Platelet Volume 5.4L, Neutrophils (%) (Auto) 63.8, Lymphocytes (%) (Auto) 24.4, Monocytes (%) (Auto) 6.7, Eosinophils (%) (Auto) 4.5H, Basophils (%) (Auto) 0.6, Sodium Level 137, Potassium Level 3.1L, Chloride Level 103, Carbon Dioxide Level 27, Anion Gap 7, Blood Urea Nitrogen 19H, Creatinine 0.8, Estimat Glomerular Filtration Rate > 60, Glucose Level 120H , Calcium Level 8.8, Vancomycin Level Trough 22.1H Current Medications Medications (Trade) Dose Ordered Sig/Tameka Route PRN Reason Start Time Stop Time Status Last Admin Dose Admin Acetaminophen (Tylenol) 650 mg Q4H PRN GT FEVER 11/28/17 02:15 12/28/17 02:14 12/06/17 20:48 Albuterol/ Ipratropium (Albuterol/ Ipratropium) 3 ml Q4H PRN HHN SHORTNESS OF BREATH 12/06/17 11:45 12/11/17 11:44 Amiodarone HCl (Cordarone) 200 mg DAILY GT 11/28/17 09:00 12/28/17 08:59 12/08/17 09:02 Carvedilol (Coreg) 3.125 mg Q12HR GT 11/28/17 09:00 12/28/17 08:59 12/08/17 09:02 Dextrose (Dextrose 50%) STAT PRN IV Hypoglycemia 11/28/17 00:15 12/28/17 00:14 Dextrose/Sodium Chloride 1,000 ml @ 50 mls/hr Q20H IV 12/07/17 12:00 01/06/18 11:59 12/08/17 11:00 Heparin Sodium (Porcine) (Heparin 5000 units/ml) 5,000 units EVERY 12 HOURS SUBQ 11/28/17 09:00 12/28/17 08:59 12/08/17 09:02 Lansoprazole (Prevacid) 30 mg DAILY GT 12/05/17 09:00 01/04/18 08:59 12/08/17 09:02 Levetiracetam (Keppra) 500 mg Q12HR GT 11/28/17 09:00 12/28/17 08:59 12/08/17 09:02 Meropenem 1 gm/ Sodium Chloride 55 ml @ 110 mls/hr Q8HR IVPB 12/06/17 15:00 12/15/17 23:59 12/08/17 06:00 Ondansetron HCl (Zofran) 4 mg Q6H PRN IVP Nausea & Vomiting 11/28/17 00:15 12/28/17 00:14 Polyethylene Glycol (Miralax) 17 gm DAILYPRN PRN ORAL Constipation 11/28/17 00:15 12/28/17 00:14 Vancomycin HCl (Vanco rx to dose) 1 ea DAILY PRN MISC Per rx protocol 11/30/17 13:15 12/30/17 13:14 Vancomycin HCl 1 gm/Dextrose 275 ml @ 183.708 mls/hr Q24H IVPB 12/08/17 20:00 12/13/17 19:59 ODETTE SMILEY Dec 08, 2017 11:35
[2017-12-08] MEDS ORDERED: VANCOMYCIN1 GM/2502 IVPB (11:38)
[2017-12-08] MEDS ORDERED: MEROPENEM1 GM IV (11:38)
--- NOTE | 2017-12-08 11:40 | Infectious Diseases Prog Note ---
Assessment/Plan Assessment/Plan +ve blood cx MSStaph A , repeat BlCx : NTD 12/04 -?from necrotic wound- r/o endocarditis, r/o pacemaker infection -11/30 3/4 +, 11/30 1+ -2d Echo 12/05: Limited 2-D Echo study due to pts contracted arm and G-tube site blocking scan area: Thickened mitral valve leaflets with normal excursion.Mitral annulus and aortic root calcification. Pulmonic valve not well visualized. Normal tricuspid valve structure.Pacemaker wire present in the right side chambers. UTI : PSA ? Pneumonia :ACB and PSA xray : No radiographic evidence of acute cardiopulmonary disease. L hip necrotic/unstagelable decubitus ulcer SP Debridement 11/29 Wnd Cx: ACB and Kleb and Strp GrG , MRSA Fever- SP -CXR: No radiographic evidence of acute cardiopulmonary disease. Unchanged linear atelectasis/scarring in the right lung. No new focal consolidation Leukocytosis, mild transaminitis , mild Hep C Ab + Plan: -Continue IV Vancomycin # and Merrem d # / ; Dw RN to order repeat blood Cx after the end of AB rx ( one wkpost AB Rx ) DO if persistent bacteremia- has pacemaker and possible lead infection 11/22 SP IV Zosyn d# 3 -monitor Bcx. -Monitor CBC/BMP - f/u Bone scan ro osteo of lt hip may need to extend AB rx if positive -CBC, CRP am Subjective Allergies: Coded Allergies: No Known Allergies (Unverified , 03/07/17) Subjective Afebrile Objective Vital Signs Last 24 Hour Vital Signs Date Time Temp Pulse Resp B/P (MAP) Pulse Ox O2 Delivery O2 Flow Rate FiO2 12/08/17 11:15 105 17 40 12/08/17 09:12 91 17 40 12/08/17 09:02 108 115/66 12/08/17 08:00 106 12/08/17 08:00 40 12/08/17 08:00 98.4 108 18 115/66 100 Mechanical Ventilator 40 12/08/17 07:21 75 20 40 12/08/17 05:03 90 17 40 12/08/17 04:00 40 12/08/17 04:00 110 12/08/17 04:00 98.1 110 18 108/69 100 Mechanical Ventilator 40 12/08/17 03:05 89 19 40 12/08/17 01:07 94 18 40 12/08/17 00:00 97.9 117 21 118/70 100 Mechanical Ventilator 40 12/08/17 00:00 114 12/07/17 22:42 86 23 40 12/07/17 21:20 93 18 40 12/07/17 20:25 122 117/72 12/07/17 20:00 40 12/07/17 20:00 98.2 120 17 117/63 100 Mechanical Ventilator 40 12/07/17 20:00 122 12/07/17 19:04 87 21 40 12/07/17 16:42 94 19 40 12/07/17 16:00 40 12/07/17 16:00 98.7 114 17 107/72 100 Mechanical Ventilator 40 12/07/17 16:00 114 12/07/17 15:27 91 18 40 12/07/17 12:56 88 17 40 12/07/17 12:02 40 12/07/17 12:00 109 12/07/17 12:00 98.9 111 17 122/83 100 Mechanical Ventilator 40 Height (Feet): 5 Height (Inches): 8.00 Weight (Pounds): 145 HEENT: anicteric Respiratory/Chest: normal breath sounds Cardiovascular: regularly irregular Abdomen: no organomegaly Laboratory Tests Test 12/08/17 07:55 White Blood Count 12.1 K/UL (4.8-10.8) H Red Blood Count 3.42 M/UL (4.70-6.10) L Hemoglobin 9.1 G/DL (14.2-18.0) L Hematocrit 30.2 % (42.0-52.0) L Mean Corpuscular Volume 88 FL (80-99) Mean Corpuscular Hemoglobin 26.7 PG (27.0-31.0) L Mean Corpuscular Hemoglobin Concent 30.1 G/DL (32.0-36.0) L Red Cell Distribution Width 15.0 % (11.6-14.8) H Platelet Count 541 K/UL (150-450) H Mean Platelet Volume 5.4 FL (6.5-10.1) L Neutrophils (%) (Auto) 63.8 % (45.0-75.0) Lymphocytes (%) (Auto) 24.4 % (20.0-45.0) Monocytes (%) (Auto) 6.7 % (1.0-10.0) Eosinophils (%) (Auto) 4.5 % (0.0-3.0) H Basophils (%) (Auto) 0.6 % (0.0-2.0) Sodium Level 137 MMOL/L (136-145) Potassium Level 3.1 MMOL/L (3.5-5.1) L Chloride Level 103 MMOL/L (98-107) Carbon Dioxide Level 27 MMOL/L (21-32) Anion Gap 7 mmol/L (5-15) Blood Urea Nitrogen 19 mg/dL (7-18) H Creatinine 0.8 MG/DL (0.55-1.30) Estimat Glomerular Filtration Rate > 60 mL/min (>60) Glucose Level 120 MG/DL (74-106) H Calcium Level 8.8 MG/DL (8.5-10.1) Vancomycin Level Trough 22.1 ug/mL (5.0-12.0) H Current Medications Medications (Trade) Dose Ordered Sig/Tameka Route PRN Reason Start Time Stop Time Status Last Admin Dose Admin Acetaminophen (Tylenol) 650 mg Q4H PRN GT FEVER 11/28/17 02:15 12/28/17 02:14 12/06/17 20:48 Albuterol/ Ipratropium (Albuterol/ Ipratropium) 3 ml Q4H PRN HHN SHORTNESS OF BREATH 12/06/17 11:45 12/11/17 11:44 Amiodarone HCl (Cordarone) 200 mg DAILY GT 11/28/17 09:00 12/28/17 08:59 12/08/17 09:02 Carvedilol (Coreg) 3.125 mg Q12HR GT 11/28/17 09:00 12/28/17 08:59 12/08/17 09:02 Dextrose (Dextrose 50%) STAT PRN IV Hypoglycemia 11/28/17 00:15 12/28/17 00:14 Dextrose/Sodium Chloride 1,000 ml @ 50 mls/hr Q20H IV 12/07/17 12:00 01/06/18 11:59 12/08/17 11:00 Heparin Sodium (Porcine) (Heparin 5000 units/ml) 5,000 units EVERY 12 HOURS SUBQ 11/28/17 09:00 12/28/17 08:59 12/08/17 09:02 Lansoprazole (Prevacid) 30 mg DAILY GT 12/05/17 09:00 01/04/18 08:59 12/08/17 09:02 Levetiracetam (Keppra) 500 mg Q12HR GT 11/28/17 09:00 12/28/17 08:59 12/08/17 09:02 Meropenem 1 gm/ Sodium Chloride 55 ml @ 110 mls/hr Q8HR IVPB 12/06/17 15:00 12/15/17 23:59 12/08/17 06:00 Ondansetron HCl (Zofran) 4 mg Q6H PRN IVP Nausea & Vomiting 11/28/17 00:15 12/28/17 00:14 Polyethylene Glycol (Miralax) 17 gm DAILYPRN PRN ORAL Constipation 11/28/17 00:15 12/28/17 00:14 Vancomycin HCl (Vanco rx to dose) 1 ea DAILY PRN MISC Per rx protocol 11/30/17 13:15 12/30/17 13:14 Vancomycin HCl 1 gm/Dextrose 275 ml @ 183.708 mls/hr Q24H IVPB 12/08/17 20:00 12/13/17 19:59 MARCUS PA M.D. Dec 08, 2017 11:40
[2017-12-08 12:00] VITALS: BP 121/70
[2017-12-08 16:00] VITALS: BP 123/81
--- NOTE | 2017-12-08 16:11 | Diagnostic Imaging Report ---
Indication: Chest pain Technique: XRAY Chest 1v Comparison: 11/27/2017 Findings: Heart size and mediastinal contours are stable. Tracheostomy tube and left chest dual-lead AICD unchanged in position. There is mild nonspecific interstitial prominence. There is unchanged linear scarring in the right midlung. There is no new definite focal airspace consolidation. No pleural effusion. No pneumothorax. No acute osseous abnormality seen. Impression: Mild nonspecific interstitial prominence. No new focal consolidation.
[2017-12-08] MEDS ORDERED: NS 275ml ONE ×2 (17:13→18:51)
[2017-12-08] MEDS ORDERED: D5NS 1000ml IV ONE ×2 (17:13→18:51)
[2017-12-08] MEDS ORDERED: Tubing IV Secondary IV ONE (18:51)
[2017-12-08] MEDS ORDERED: Vancomycin 1gm/D5W 275ml IVPB SCH ×2 (20:00)
--- NOTE | 2017-12-09 11:12 | Diagnostic Imaging Report ---
Indication: Left hip wound, possible osteomyelitis Technique: IV administration 24.3 mCi 99m technetium MDP flow, blood pool, and static images obtained over the pelvic region Comparison: No plain radiographs are available for comparison Findings: Exam is very limited due to patient being contracted. Blood pool images demonstrate mild hyperemia of the bilateral hip and lateral buttock regions. There is also suggestion of slight hyperemia of the mid sacral region No significant abnormality is observed on the blood pool images. The static images demonstrate abnormal posterior activity which is probably mid sacral. There is fairly symmetric activity in the regions of the bilateral femoral heads. The left femoral head may be dislocated or subluxed. No abnormal ischial activity demonstrated. Impression: Abnormal activity in what is probably the mid sacral region on static images. Borderline increased flow activity and no abnormal blood pool activity. Combination of findings is therefore nonspecific; borderline increased flow activity suggests the possibility of sacral osteomyelitis but given that the static activity is considerably out of proportion to the flow and blood pool activity other etiologies such as trauma should be considered Abnormal activity in the region of the bilateral superior femoral heads, without corresponding flow or blood pool activity most likely represents degenerative change. No definite findings to suggest acute osteomyelitis of the left hip Mild increased flow activity in the bilateral buttocks may indicate soft tissue cellulitis
[2017-12-09] MEDS ORDERED: VANCOMYCIN1 GM/2502 IVPB (11:46)
--- NOTE | 2017-12-09 12:03 | Discharge Summary ---
Discharge Summary Hospital Course Date of Admission Nov 27, 2017 at 22:31 Date of Discharge Dec 08, 2017 at 17:40 Admitting Diagnosis symptomatic anemia, tracheostomy HPI Yamil Wells is a 57 year old male who was admitted on Nov 27, 2017 at 22:31 for Symptomatic Anemia, Tracheostomy Hospital Course dc summary #[id number] Discharge Medications New Medications: Meropenem (Meropenem) 1 Gm Vial 1 GM IV EVERY 8 HOURS for 7 Days, VIAL Vancomycin Hcl/D5w (Vancomycin-D5w 1 G/250 Ml) 1 Gm/250 Ml Plast..bag 1 GM IVPB Q24H for 16 Days, BAG Continued Medications: Amiodarone Hcl (Amiodarone Hcl) 100 Mg Tablet 200 MG GT DAILY, TAB Carvedilol (Coreg) 3.125 Mg Tablet 3.125 MG GT Q12HR for 30 Days, TAB Furosemide* (Lasix*) 40 Mg Tablet 60 MG GT DAILY, TAB Levetiracetam (Keppra) 100 Mg/1 Ml Solution 500 MG GT Q12HR for 60 Days, #60 CAP Discharge Condition Upon Discharge: stable Discharge Disposition Patient was discharged to SNF Discharge Diagnoses: Diaz (Enriqueta)Chiara NP Dec 09, 2017 12:03
--- NOTE | 2017-12-10 | Discharge Summary 2 SIG ---
DATE OF ADMISSION: 11/27/2017 DATE OF DISCHARGE: 12/08/2017 REASON FOR ADMISSION: 57-year-old male, resident of subacute half-way facility, with past medical history significant for ventilator-dependent respiratory failure, tracheostomy status, dysphagia, G-tube, AICD, cardiomyopathy with ejection fraction of 30%, seizure disorder, hepatitis C, was sent from the half-way facility for evaluation of low hemoglobin count. Upon evaluation in the emergency department, the patient was tachycardic -120, borderline hypotensive -96/48. CBC revealed anemia with hemoglobin -7.1, hematocrit -25.2. Urinalysis evidence with UTI. Leukocytosis -12.4. Troponin negative. The patient was admitted with diagnoses of possible sepsis, UTI, anemia, history of cardiomyopathy with ejection fraction of 30%, AICD. HOSPITAL COURSE: The patient was admitted to [facility]. Infectious Disease consult was requested. The patient was started on empiric antibiotics. Ventilator support and tracheostomy care provided. ABG was stable on current settings. Settings were kept as is and titrated as needed. Pulmonary toilet was provided. The patient was followed up with chest x-ray. Surgery consult was requested for possible debridement of infected left hip necrotic un-stageable decubitus ulcer. Surgeon had seen and evaluated the patient. The patient had undergone debridement of the left hip decubitus on 11/29/2017. Wound care was provided as per Surgery recommendation. Sputum culture was positive for Acinetobacter and Pseudomonas aeruginosa. Urine culture was positive for Pseudomonas aeruginosa. Wound culture was positive for Strep group G, Morganella, and Klebsiella pneumoniae. Blood culture grew Staph aureus. Repeated blood culture also grew Staph aureus one out of four, and last blood cultures on 12/04/2017 were preliminary negative for four days. Antibiotic regimen was optimized as per ID recommendation. ID initially wanted to rule out endocarditis or AICD infection. Echocardiogram was done and revealed at this time ejection fraction of 55% with hypokinesis of basal sara-septum, otherwise all other remaining segments appeared to have normal wall motion. At this time, ejection fraction estimated to be 55%, right ventricular systolic pressure of 37 consistent with mild pulmonary hypertension. No evidence of vegetation. The patient had undergone bone scan to rule out osteomyelitis of left hip. Bone scan revealed no definite findings to suggest acute osteomyelitis of the left hip. Infectious Disease doctor recommended to continue antibiotics to complete the course and repeat blood culture one week after antibiotic completed. Strict aspiration precautions were maintained. The patient was on G-tube feeding. The patient was able to tolerate G-tube feeding. Electrolytes were corrected as needed. The patient was on gentle IV fluids. Venous duplex of bilateral lower [id number] was negative. DVT and GI prophylaxes provided. Seizure precaution were maintained. No seizure activity while in the hospital. Keppra was continued. The patient required blood transfusion for hemoglobin - 7.1 and hematocrit -25.2, status post transfusion of 1 unit of packed red blood cells. Hemoglobin and hematocrit stable after transfusion and remained stable at baseline until discharge. Beta-carmenza and amiodarone were continued. Nutritional support with supplements as per dietary recommendations was provided. Wound care for multiple decubitus present on admission, stage III and IV was provided as per wound care nurse recommendation. Continue wound care at the half-way facility. LFT trending down. The patient with known history of hepatitis C. The patient was stable for discharge. FINAL DIAGNOSES: 1. Sepsis with bacteremia, methicillin-sensitive Staphylococcus aureus. 2. Urinary tract infection with Pseudomonas. 3. Possible pneumonia with Acinetobacter and Pseudomonas. 4. Infected left hip necrotic decubitus, un-stageable. 5. Status post debridement of left hip decubitus. 6. Mild transaminitis. 7. Hepatitis C. 8. Ventilator-dependent respiratory failure with tracheostomy status. 9. Anemia, requiring blood transfusion. 10. Automatic implantable cardioverter-defibrillator. 11. Mild pulmonary hypertension. 12. Multiple decubitus ulcers, present on admission, stage III and IV. 13. Severe protein-calorie malnutrition. 14. Electrolyte imbalance. 15. Dysphagia, gastrostomy tube. 16. Seizure disorder. DISCHARGE INSTRUCTIONS: The patient was discharged to subacute half-way facility. Complete IV antibiotic as outlined in medication reconciliation list. Follow up with medical doctor and television program director at the facility. DISCHARGE MEDICATIONS: See medication reconciliation list. Shani Moses M.D. [facility] Peral[facility] N[facility]PBet[facility]: Khloe JOB#: [id number] CC: DEMAR
--- NOTE | 2017-12-14 20:36 | Diagnostic Imaging Report ---
APPROVED REPORT CPT Code: 59941 Present Symptoms Lower Extremity Pain: Comments: R/O DVT. Technically difficult, limited study due to bilateral contracture. RIGHT LEG: Venous imaging reveals a patent deep venous system. There is no evidence of thrombus within the femoral or popliteal segments. The greater saphenous vein is also within normal limits. Doppler, where possible, indicates normal spontaneous flow. The calf veins were not visualized. LEFT LEG: Venous imaging reveals a patent deep venous system. There is no evidence of thrombus within the femoral segments. The greater saphenous vein is also within normal limits. Doppler, where possible, indicates normal spontaneous flow. The popliteal vein was not visualized. The calf veins were also not visualized.
== END 2017-12-08 17:40 | DRG 710 ==
LOC: EDBD 21:09 → EMR 22:26 → ICU 22:31 → EDBEDREQ 23:56 → 2W 11-28 00:35
PROC: 5A1955Z Respiratory Ventilation, Greater than 96 Consecutive Hours (ICD-10-PCS; principal; 2017-11-27)
PROC: 0JDM3ZZ Extraction of Left Upper Leg Subcutaneous Tissue and Fascia, Percutaneous Approach (ICD-10-PCS; 2017-11-29)
DX: A41.01 Sepsis due to Methicillin susceptible Staphylococcus aureus (principal); J96.20 Acute and chronic respiratory failure, unspecified whether with hypoxia or hypercapnia; J15.1 Pneumonia due to Pseudomonas; E43 Unspecified severe protein-calorie malnutrition; L89.154 Pressure ulcer of sacral region, stage 4; Z93.0 Tracheostomy status; L89.893 Pressure ulcer of other site, stage 3; L89.524 Pressure ulcer of left ankle, stage 4; I42.9 Cardiomyopathy, unspecified; L89.220 Pressure ulcer of left hip, unstageable; L89.023 Pressure ulcer of left elbow, stage 3; L89.813 Pressure ulcer of head, stage 3; Z93.1 Gastrostomy status; D64.9 Anemia, unspecified; Z16.35 Resistance to multiple antimicrobial drugs; Z95.810 Presence of automatic (implantable) cardiac defibrillator; R13.10 Dysphagia, unspecified; G40.909 Epilepsy, unspecified, not intractable, without status epilepticus; B19.20 Unspecified viral hepatitis C without hepatic coma; N39.0 Urinary tract infection, site not specified; B96.5 Pseudomonas (aeruginosa) (mallei) (pseudomallei) as the cause of diseases classified elsewhere; Z68.22 Body mass index [BMI] 22.0-22.9, adult; I27.20 Pulmonary hypertension, unspecified; F03.90 Unspecified dementia, unspecified severity, without behavioral disturbance, psychotic disturbance, mood disturbance, and anxiety; I48.91 Unspecified atrial fibrillation
CPT/HCPCS: 36415; 36600; 71045; 78315; 80048; 80053; 80069; 80202; 81003; 82550; 82553; 82803; 82962; 83735; 84100; 84484; 85007; 85025; 85651; 86140; 86850; 86900; 86901; 86920; 87040; 87070; 87081; 87086; 87181; 87205; 93005; 93306; 93970; 94002; 94003; 94664; 99285; J8499

== ENCOUNTER 2018-02-16 22:49 | Inpatient (IN) | payer OTHER ==
[~2018-02-16] VITALS: Ht 180.3 cm; Wt 62.7 kg
[~2018-02-16 22:49] MED LIST changes: +ALBUTEROL2.5 MG/3 M INH; +ARGINAID POWDE1 EACH GT; +DOCUSATE SODIU100 MG GT; +FERROUS SU300 MG/52 GT; +MEROPENEM1 GM IV; +PRO-STAT LIQUID30 ML ORAL
[2018-02-16] MEDS ORDERED: Miralax 17gm pkt ORAL PRN (23:15)
[2018-02-16] MEDS ORDERED: Albuterol/Ipratropium 3ml neb HHN PRN (23:15)
[2018-02-16] MEDS ORDERED: LORazepam Inj 2mg/ml 1ml IV PRN (23:15)
[2018-02-16 23:20] VITALS: BP 119/77
[2018-02-17] VITALS (7 sets, daily range): BP systolic 96–114; BP diastolic 58–79
--- NOTE | 2018-02-17 00:28 | Emergency Room Report ---
History of Present Illness General Chief Complaint: Abnormal Labs Source: Medical Record Present Illness HPI Patient presents from nursing facility with reports of general weakness and anemia patient himself is nonverbal cannot provide any history Patient has a tracheostomy in place Mildly tachypneic Patient is nonverbal History of present illness is significantly limited No reports of vomiting or diarrhea Patient has feeding tube in place Allergies: Coded Allergies: No Known Allergies (Unverified , 03/07/17) Patient History Limited by: medical condition Past Medical History: see triage record Pertinent Family History: unable to obtain Reviewed Nursing Documentation: PMH: Agreed; PSxH: Agreed Nursing Documentation-PMH Hx Cardiac Problems: Yes - Afib; Cardiomyapathy. rheumatic tricuspid valve disease Hx Hypertension: Yes - Anemia, vtach, hypotension Hx Pacemaker: Yes - Defibrillator implant Hx COPD: Yes - Resp failure, vent dep.. PNA, acidosis, sepsis, proteinuria Hx Diabetes: No - Failure to thrive Hx Gastrointestinal Problems: Yes - GT; Cirrhosis, dysphagia, tracheostomy, GERD, cirrhosis, ascites Hx Neurological Problems: Yes - ENCEPHALOPATHY, muscle weakness, Hx Cerebrovascular Accident: Yes - breakdown of cardiac pulse generator ( battery) Hx Transient Ischemic Attacks: Yes Hx Dementia: Yes Hx Seizures: Yes Review of Systems All Other Systems: limited - Other than the ones mentioned in the history of present illness all others are reviewed however they do stay limited due to the patient's mental status Physical Exam Vital Signs Date Time Temp Pulse Resp B/P (MAP) Pulse Ox O2 Delivery O2 Flow Rate FiO2 02/16/18 22:49 97.7 94 20 110/75 100 Mechanical Ventilator 97.7 02/17/18 00:05 35 Sp02 EP Interpretation: reviewed, normal General Appearance: mild distress - Patient appears diaphoretic and ill Head: atraumatic Eyes: bilateral eye PERRL ENT: dry mucus membranes Neck: supple, other - Tracheostomy in place Respiratory: no retraction, crackles - Diffusely Cardiovascular #1: no edema, tachycardia Gastrointestinal: soft - Feeding tube in place Musculoskeletal: other - Patient chronically debilitated flexture on all extremity Neurologic: responsive - Minimally to physical stimuli Skin: other - Decubitus ulcers poor turgor Lymphatic: no adenopathy Medical Decision Making Diagnostic Impression: Primary Impression: Symptomatic anemia Additional Impressions: GI bleed Tracheostomy care ER Course Patient is a fairly complex patient with multiple differential to consideration including but not limited to cardiac cardiopulmonary and vascular emergencies Patient is placed on the ventilator Hemoglobin comes back low at 8.8 Patient's Hemoccult exam is also positive raising concern and question of possible GI bleed patient is unstable for transport requiring [facility] admission and further inpatient care Labs Test 02/17/18 00:30 White Blood Count 10.8 K/UL (4.8-10.8) Red Blood Count 3.14 M/UL (4.70-6.10) Hemoglobin 8.8 G/DL (14.2-18.0) Hematocrit 28.4 % (42.0-52.0) Mean Corpuscular Volume 90 FL (80-99) Mean Corpuscular Hemoglobin 28.1 PG (27.0-31.0) Mean Corpuscular Hemoglobin Concent 31.1 G/DL (32.0-36.0) Red Cell Distribution Width 16.0 % (11.6-14.8) Platelet Count 371 K/UL (150-450) Mean Platelet Volume 7.9 FL (6.5-10.1) Neutrophils (%) (Auto) 71.2 % (45.0-75.0) Lymphocytes (%) (Auto) 19.5 % (20.0-45.0) Monocytes (%) (Auto) 4.2 % (1.0-10.0) Eosinophils (%) (Auto) 4.9 % (0.0-3.0) Basophils (%) (Auto) 0.3 % (0.0-2.0) Sodium Level 144 MMOL/L (136-145) Potassium Level 4.2 MMOL/L (3.5-5.1) Chloride Level 108 MMOL/L (98-107) Carbon Dioxide Level 31 MMOL/L (21-32) Anion Gap 5 mmol/L (5-15) Blood Urea Nitrogen 33 mg/dL (7-18) Creatinine 0.7 MG/DL (0.55-1.30) Estimat Glomerular Filtration Rate > 60 mL/min (>60) Glucose Level 92 MG/DL (74-106) Calcium Level 8.8 MG/DL (8.5-10.1) Total Bilirubin 0.2 MG/DL (0.2-1.0) Aspartate Amino Transf (AST/SGOT) 145 U/L (15-37) Alanine Aminotransferase (ALT/SGPT) 206 U/L (12-78) Alkaline Phosphatase 166 U/L (46-116) Total Creatine Kinase 59 U/L (26-308) Creatine Kinase MB 1.9 NG/ML (0.0-3.6) Creatine Kinase MB Relative Index 3.2 Troponin I 0.000 ng/mL (0.000-0.056) Pro-B-Type Natriuretic Peptide 900 pg/mL (0-125) Total Protein 7.8 G/DL (6.4-8.2) Albumin 1.7 G/DL (3.4-5.0) Globulin 6.1 g/dL Albumin/Globulin Ratio 0.3 (1.0-2.7) Rhythm Strip Diag. Results EP Interpretation: yes Rate: 88 Rhythm: NSR, no PVC's, no ectopy Chest X-Ray Diagnostic Results Chest X-Ray Diagnostic Results : Chest X-Ray Ordered: Yes # of Views/Limited/Complete: 1 View Indication: Shortness of Breath EP Interpretation: Yes Interpretation: no consolidation, no effusion, no pneumothorax, no acute cardiopulmonary disease Impression: No acute disease Electronically Signed by: Kayla Savage DO Last Vital Signs Date Time Temp Pulse Resp B/P (MAP) Pulse Ox O2 Delivery O2 Flow Rate FiO2 02/17/18 00:05 91 21 35 02/16/18 22:49 97.7 110/75 100 Mechanical Ventilator 97.7 Status: improved Disposition: ADMITTED INPATIENT Condition: Serious Referrals: Shani Moses MD (PCP) Kayla Savage DO Feb 17, 2018 00:28
[2018-02-17 00:47] LABS: BASOPHILS % (AUTO) 0.3 % (0.0-2.0); EOSINOPHILS % (AUTO) 4.9 % (0.0-3.0); HEMATOCRIT 28.4 % (42.0-52.0); HEMOGLOBIN 8.8 G/DL (14.2-18.0); LYMPHOCYTES % (AUTO) 19.5 % (20.0-45.0); MEAN CORPUSCULAR VOLUME 90 FL (80-99); MONOCYTES % (AUTO) 4.2 % (1.0-10.0); NEUTROPHILS % (AUTO) 71.2 % (45.0-75.0); PLATELET COUNT 371 K/UL (150-450); RED BLOOD COUNT 3.14 M/UL (4.70-6.10); WHITE BLOOD COUNT 10.8 K/UL (4.8-10.8)
[2018-02-17] MEDS ORDERED: ATIVAN0.5 MG GT (00:52)
[2018-02-17] MEDS ORDERED: NITROFURANTOIN100 MG GT (00:52)
[2018-02-17] MEDS ORDERED: NORCO 5-325 TA1 EAC1 ORAL (00:52)
[2018-02-17] MEDS ORDERED: VITAMIN C500 M1 GT (00:52)
[2018-02-17] MEDS ORDERED: ZINC SULFATE220 M1 GT (00:52)
[2018-02-17] MEDS ORDERED: FOLIC ACID1 MG GT (00:52)
[2018-02-17] MEDS ORDERED: TRAMADOL HCL50 MG GT (00:52)
[2018-02-17] MEDS ORDERED: ACETAMINOPHEN325 M1 GT (00:52)
[2018-02-17] MEDS ORDERED: UTI-STAT L3875 MG/31 PO (00:52)
[2018-02-17] MEDS ORDERED: AMIODARONE HCL400 M1 GT (00:52)
[2018-02-17] MEDS ORDERED: ZOFRAN4 M3 GT (00:53)
[2018-02-17 01:07] LABS: ANION GAP 5 mmol/L (5-15); BLOOD UREA NITROGEN 33 mg/dL (7-18); CALCIUM 8.8 MG/DL (8.5-10.1); CARBON DIOXIDE 31 MMOL/L (21-32); CHLORIDE 108 MMOL/L (98-107); CREATININE 0.7 MG/DL (0.55-1.30); POTASSIUM 4.2 MMOL/L (3.5-5.1); SODIUM 144 MMOL/L (136-145)
[2018-02-17 01:22] LABS: ALANINE AMINOTRANSFERASE 206 U/L (12-78); ALBUMIN 1.7 G/DL (3.4-5.0); ALBUMIN/GLOBULIN RATIO 0.3 (1.0-2.7); ALKALINE PHOSPHATASE 166 U/L (46-116); ASPARTATE AMINO TRANSFERASE 145 U/L (15-37); BILIRUBIN,TOTAL 0.2 MG/DL (0.2-1.0); CKMB 1.9 NG/ML (0.0-3.6); CREATINE KINASE 59 U/L (26-308)
[2018-02-17 07:37] LABS: BASOPHILS % (AUTO) 0.2 % (0.0-2.0); EOSINOPHILS % (AUTO) 5.5 % (0.0-3.0); HEMATOCRIT 24.9 % (42.0-52.0); LYMPHOCYTES % (AUTO) 13.5 % (20.0-45.0); MEAN CORPUSCULAR VOLUME 91 FL (80-99); MONOCYTES % (AUTO) 6.6 % (1.0-10.0); NEUTROPHILS % (AUTO) 74.2 % (45.0-75.0); PLATELET COUNT 347 K/UL (150-450); RED BLOOD COUNT 2.75 M/UL (4.70-6.10); RED CELL DISTRIBUTION WIDTH 15.8 % (11.6-14.8)
[2018-02-17 07:43] LABS: ALANINE AMINOTRANSFERASE 171 U/L (12-78); ALBUMIN 1.6 G/DL (3.4-5.0); ALBUMIN/GLOBULIN RATIO 0.3 (1.0-2.7); ALKALINE PHOSPHATASE 143 U/L (46-116); ANION GAP 6 mmol/L (5-15); ASPARTATE AMINO TRANSFERASE 91 U/L (15-37); BILIRUBIN,TOTAL 0.2 MG/DL (0.2-1.0); BLOOD UREA NITROGEN 31 mg/dL (7-18); CALCIUM 8.8 MG/DL (8.5-10.1); CARBON DIOXIDE 29 MMOL/L (21-32); CHLORIDE 110 MMOL/L (98-107); CREATININE 0.7 MG/DL (0.55-1.30); PHOSPHORUS 3.1 MG/DL (2.5-4.9); POTASSIUM 3.7 MMOL/L (3.5-5.1); SODIUM 145 MMOL/L (136-145)
[2018-02-17] MEDS: Heparin 5000 units/ml inj SUBQ SCH ×2 (08:44→21:25)
[2018-02-17] MEDS: Pantoprazole Inj IV SCH (08:44)
[2018-02-17] MEDS ORDERED: Vancomycin 1250mg/D5W 250ml IVPB ONE (09:30)
--- NOTE | 2018-02-17 09:41 | Diagnostic Imaging Report ---
Indication: Chest pain Technique: One view of the chest Comparison: 12/08/2017 Findings: There is equivocal right suprahilar infiltrate. There is right perihilar pulmonary vascular prominence which appears similar to the prior exam. There is a left chest if focal AICD. There is tracheostomy. The heart is upper limits of normal in size. The remainder of the lungs and pleural spaces are clear Impression: Possible right suprahilar infiltrate-correlate with clinical findings Other findings as noted
--- NOTE | 2018-02-17 10:31 | Diagnostic Imaging Report ---
Indication: Dyspnea Technique: One view of the chest Comparison: 8 hours earlier Findings: There is a left chest bifocal AICD again demonstrated. Tracheostomy is again demonstrated. Lungs currently appear clear, previously questioned right suprahilar disease no longer evident. Impression: No acute process
--- NOTE | 2018-02-17 11:15 | History and Physical ---
History of Present Illness General Date patient seen: Feb 17, 2018 Reason for Hospitalization: Abnormal Labs Present Illness HPI 58 year old patient with PMHx of chronic trach, PEG, severe cardiomyopathy presented from nursing facility with reports of general weakness and anemia. Pt is nonverbal cannot provide any history Pt is admitted to [facility] for further w/u. Allergies: Coded Allergies: No Known Allergies (Unverified , 03/07/17) Medication History Scheduled Amino Acids/Protein Hydrolys (Pro-Stat Liquid), 30 ML ORAL THREE TIMES A DAY, ( Reported) Amiodarone Hcl (Amiodarone Hcl), 200 MG GT DAILY, (Reported) Amiodarone Hcl* (Amiodarone Hcl*), 200 MG GT DAILY, (Reported) Arginine/Ascorbate Sod/Coy AC (Arginaid Powder), 1 EACH GT TWICE A DAY, ( Reported) Ascorbic Acid* (Vitamin C*), 500 MG GT DAILY, (Reported) Ascorbic Acid* (Vitamin C*), 500 MG GT DAILY, (Reported) Aspirin* (Aspir 81*), 81 MG GT DAILY, (Reported) Carvedilol (Coreg), 3.125 MG GT Q12HR Cran/Vitc/Mannose/Inulin/Brom (Uti-Stat Liquid), 30 ML GT BID, (Reported) Docusate Sodium* (Docusate Sodium*), 100 MG GT DAILY, (Reported) Ferrous Sulfate (Ferrous Sulfate), 330 MG GT DAILY, (Reported) Folic Acid* (Folic Acid*), 1 MG ORAL DAILY, (Reported) Folic Acid* (Folic Acid*), 1 MG GT DAILY, (Reported) Furosemide* (Lasix*), 60 MG GT DAILY, (Reported) Heparin Sod (Porcine) (Heparin Sodium*), 5,000 UNITS SUBQ EVERY 12 HOURS, ( Reported) Lactulose (Lactulose*), 30 ML GT BID, (Reported) Levetiracetam (Keppra), 500 MG GT Q12HR Lisinopril* (Lisinopril*), 10 MG GT DAILY, (Reported) Lorazepam* (Ativan*), 0.5 MG GT PRN, (Reported) Meropenem (Meropenem), 1 GM IV EVERY 8 HOURS Multivitamin With Minerals (Multivitamins With Minerals*), 1 TAB GT DAILY, ( Reported) Nitrofurantoin Macrocrystal (Nitrofurantoin), 100 MG GT BID, (Reported) Omeprazole (Omeprazole), 40 MG GT DAILY, (Reported) Polyethylene Glycol 3350* (Miralax*), 17 GM GT PRN, (Reported) Potassium (Potassium), 40 MG GT BID, (Reported) Tramadol Hcl* (Ultram*), 50 MG GT DAILY, (Reported) Vancomycin Hcl/D5w (Vancomycin-D5w 1 G/250 Ml), 1 GM IVPB Q24H Warfarin Sod (Coumadin*), 8 MG GT DAILY, (Reported) Zinc Sulfate (Zinc Sulfate*), 220 MG ORAL DAILY, (Reported) Zinc Sulfate (Zinc Sulfate*), 220 MG GT DAILY, (Reported) Scheduled PRN Acetaminophen* (Tylenol*), 325 MG GT Q4H PRN for Mild Pain/Temp > 100.5, ( Reported) Acetaminophen* (Acetaminophen 325MG Tablet*), 650 MG GT Q4H PRN for Fever/ Headache/Mild Pain, (Reported) Albuterol Sulfate* (Albuterol Sulfate Hhn*), 3 ML INH Q3HR PRN for Shortness of Breath, (Reported) Albuterol Sulfate* (Albuterol Sulfate Hhn*), 3 ML INH Q6H PRN for Shortness of Breath, (Reported) Clonidine Hcl (Clonidine Hcl), 0.1 MG PO Q6HR PRN for For High Blood Pressure, ( Reported) Hydrocodone Bit/Acetaminophen 5-325* (Captain [place] 5-325 Tablet*), 1 TAB GT Q4H PRN for For Pain, (Reported) Hydrocodone Bit/Acetaminophen 5-325* ([place] 5-325 Tablet*), 1 TAB ORAL Q4H PRN for For Pain, (Reported) Hydrocodone Bit/Acetaminophen 5-325* ([place] 5-325 Tablet*), 1 TAB ORAL Q4H PRN for For Pain, (Reported) Lorazepam* (Ativan*), 0.5 MG GT EVERY 6 HOURS PRN for For Anxiety, (Reported) Ondansetron* (Zofran*), 4 MG GT Q6H PRN for Nausea & Vomiting, (Reported) Ondansetron* (Zofran*), 4 MG GT Q6H PRN for Nausea & Vomiting, (Reported) Polyethylene Glycol 3350* (Miralax*), 17 GM GT DAILY PRN for Constipation, ( Reported) Tramadol Hcl* (Ultram*), 50 MG GT Q6H PRN for For Pain, (Reported) Tramadol Hcl* (Ultram*), 50 MG GT Q6H PRN for For Pain, (Reported) Miscellaneous Medications Chlorhexidine Gluconate (Chlorhexidine Gluconate), 15 ML TP, (Reported) Cran/Vitc/Mannose/Inulin/Brom (Uti-Stat Liquid), Unknown Dose PO, (Reported) Lactose-Reduced Food/Fiber (Jevity 1.2 Simone Liquid), 1,300 ML GT, (Reported) Patient History Healthcare decision maker Resuscitation status Full Code Advanced Directive on File Past Medical/Surgical History Past Medical/Surgical History: (1) AICD (automatic cardioverter/defibrillator) present (2) Tracheostomy care (3) Atrial fibrillation (4) EF of 30 Review of Systems All Other Systems: negative except mentioned in HPI Physical Exam General Appearance: cachetic Lines, tubes and drains: peripheral HEENT: normocephalic, atraumatic Neck: non-tender, normal alignment Respiratory/Chest: chest wall non-tender, lungs clear Breasts: no masses Cardiovascular/Chest: normal peripheral pulses, normal rate Abdomen: normal bowel sounds, non tender Genitourinary/Rectal: normal genital exam Extremities: normal range of motion Skin Exam: normal pigmentation Neurologic: bathroom tiling professional 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 normal Lymphatic: anterior cervical Last 24 Hour Vital Signs Date Time Temp Pulse Resp B/P (MAP) Pulse Ox O2 Delivery O2 Flow Rate FiO2 02/17/18 09:09 91 20 35 02/17/18 08:00 35 02/17/18 08:00 99.2 118 21 101/63 99 Mechanical Ventilator 35 99.2 02/17/18 07:52 115 02/17/18 06:44 94 21 35 02/17/18 05:13 94 21 35 02/17/18 04:00 98 02/17/18 03:30 98.2 96 21 110/72 100 Mechanical Ventilator 35 98.2 02/17/18 03:15 97.7 99 20 114/77 100 Mechanical Ventilator 35 97.7 02/17/18 03:11 89 20 35 02/17/18 02:59 99 23 114/77 100 Mechanical Ventilator 02/17/18 01:21 87 19 35 02/17/18 01:20 90 23 110/79 100 Mechanical Ventilator 02/17/18 00:05 91 21 35 02/16/18 23:20 35 02/16/18 23:20 97.7 89 21 119/77 100 Mechanical Ventilator 97.7 02/16/18 22:49 97.7 94 20 110/75 100 Mechanical Ventilator 97.7 Intake and Output 02/16/18 02/17/18 19:00 07:00 Intake Total 0 ml Output Total 550 ml Balance -550 ml Intake Oral 0 ml Output Urine Total 550 ml Laboratory Tests Test 02/17/18 00:30 02/17/18 06:30 White Blood Count 10.8 K/UL (4.8-10.8) 11.0 K/UL (4.8-10.8) H Red Blood Count 3.14 M/UL (4.70-6.10) L 2.75 M/UL (4.70-6.10) L Hemoglobin 8.8 G/DL (14.2-18.0) L 8.0 G/DL (14.2-18.0) L Hematocrit 28.4 % (42.0-52.0) L 24.9 % (42.0-52.0) L Mean Corpuscular Volume 90 FL (80-99) 91 FL (80-99) Mean Corpuscular Hemoglobin 28.1 PG (27.0-31.0) 29.2 PG (27.0-31.0) Mean Corpuscular Hemoglobin Concent 31.1 G/DL (32.0-36.0) L 32.3 G/DL (32.0-36.0) Red Cell Distribution Width 16.0 % (11.6-14.8) H 15.8 % (11.6-14.8) H Platelet Count 371 K/UL (150-450) 347 K/UL (150-450) Mean Platelet Volume 7.9 FL (6.5-10.1) 8.7 FL (6.5-10.1) Neutrophils (%) (Auto) 71.2 % (45.0-75.0) 74.2 % (45.0-75.0) Lymphocytes (%) (Auto) 19.5 % (20.0-45.0) L 13.5 % (20.0-45.0) L Monocytes (%) (Auto) 4.2 % (1.0-10.0) 6.6 % (1.0-10.0) Eosinophils (%) (Auto) 4.9 % (0.0-3.0) H 5.5 % (0.0-3.0) H Basophils (%) (Auto) 0.3 % (0.0-2.0) 0.2 % (0.0-2.0) Sodium Level 144 MMOL/L (136-145) 145 MMOL/L (136-145) Potassium Level 4.2 MMOL/L (3.5-5.1) 3.7 MMOL/L (3.5-5.1) Chloride Level 108 MMOL/L (98-107) H 110 MMOL/L (98-107) H Carbon Dioxide Level 31 MMOL/L (21-32) 29 MMOL/L (21-32) Anion Gap 5 mmol/L (5-15) 6 mmol/L (5-15) Blood Urea Nitrogen 33 mg/dL (7-18) H 31 mg/dL (7-18) H Creatinine 0.7 MG/DL (0.55-1.30) 0.7 MG/DL (0.55-1.30) Estimat Glomerular Filtration Rate > 60 mL/min (>60) > 60 mL/min (>60) Glucose Level 92 MG/DL (74-106) 90 MG/DL (74-106) Calcium Level 8.8 MG/DL (8.5-10.1) 8.8 MG/DL (8.5-10.1) Total Bilirubin 0.2 MG/DL (0.2-1.0) 0.2 MG/DL (0.2-1.0) Aspartate Amino Transf (AST/SGOT) 145 U/L (15-37) H 91 U/L (15-37) H Alanine Aminotransferase (ALT/SGPT) 206 U/L (12-78) H 171 U/L (12-78) H Alkaline Phosphatase 166 U/L (46-116) H 143 U/L (46-116) H Total Creatine Kinase 59 U/L (26-308) Creatine Kinase MB 1.9 NG/ML (0.0-3.6) Creatine Kinase MB Relative Index 3.2 Troponin I 0.000 ng/mL (0.000-0.056) Pro-B-Type Natriuretic Peptide 900 pg/mL (0-125) H 703 pg/mL (0-125) H Total Protein 7.8 G/DL (6.4-8.2) 7.4 G/DL (6.4-8.2) Albumin 1.7 G/DL (3.4-5.0) L 1.6 G/DL (3.4-5.0) L Globulin 6.1 g/dL 5.8 g/dL Albumin/Globulin Ratio 0.3 (1.0-2.7) L 0.3 (1.0-2.7) L Phosphorus Level 3.1 MG/DL (2.5-4.9) Height (Feet): 5 Height (Inches): 11.00 Weight (Pounds): 125 Medications Current Medications Medications (Trade) Dose Ordered Sig/Tameka Route PRN Reason Start Time Stop Time Status Last Admin Dose Admin Acetaminophen (Tylenol) 650 mg Q4H PRN ORAL FEVER 02/16/18 23:15 03/18/18 23:14 Albuterol/ Ipratropium (Albuterol/ Ipratropium) 3 ml EVERY 4 HOURS PRN HHN Shortness of Breath 02/16/18 23:15 02/21/18 23:14 Dextrose (Dextrose 50%) STAT PRN IV Hypoglycemia 02/16/18 23:15 03/18/18 23:14 Heparin Sodium (Porcine) (Heparin 5000 units/ml) 5,000 units EVERY 12 HOURS SUBQ 02/17/18 09:00 03/19/18 08:59 02/17/18 08:44 Lorazepam (Ativan 2mg/ml 1ml) 2 mg EVERY 2 HOURS PRN IV For Anxiety 02/16/18 23:15 02/23/18 23:14 Morphine Sulfate (Morphine Sulfate) 4 mg EVERY 4 HOURS PRN IVP Severe Pain (Pain Scale 7-10) 02/16/18 23:15 02/23/18 23:14 Ondansetron HCl (Zofran) 4 mg Q6H PRN IVP Nausea & Vomiting 02/16/18 23:15 03/18/18 23:14 Pantoprazole (Protonix) 40 mg DAILY IV 02/17/18 09:00 03/19/18 08:59 02/17/18 08:44 Polyethylene Glycol (Miralax) 17 gm DAILYPRN PRN ORAL Constipation 02/16/18 23:15 03/18/18 23:14 Vancomycin HCl (Vanco rx to dose) 1 ea DAILY PRN MISC . 02/17/18 08:30 03/19/18 08:29 Vancomycin HCl 500 mg/Dextrose 110 ml @ 110 mls/hr Q12HR IVPB 02/17/18 21:00 02/22/18 20:59 Assessment/Plan Problem List: (1) Symptomatic anemia ICD Codes: D64.9 - Anemia, unspecified SNOMED: 347347000 (2) EF of 30 (3) AICD (automatic cardioverter/defibrillator) present ICD Codes: Z95.810 - Presence of automatic (implantable) cardiac defibrillator SNOMED: 13366156, 999683595 (4) Tracheostomy care ICD Codes: Z43.0 - Encounter for attention to tracheostomy SNOMED: 726877848 (5) Feeding by G-tube ICD Codes: Z93.1 - Gastrostomy status SNOMED: 914870465, [id number] Assessment/Plan respiratory treatment check cultures anemia w/u prbc prn feeding by gtube trach site care. Shani Moses MD Feb 17, 2018 11:15
--- NOTE | 2018-02-17 12:45 | Consultation ---
Consult Note Consult Note id dic [id number] Jake Naqvi MD Feb 17, 2018 12:45
[2018-02-17] MEDS: Piperacillin/Tazobactam 3.375 GM in NS 110 ML IVPB SCH ×2 (15:33→22:18)
--- NOTE | 2018-02-17 17:15 | Consultation ---
DATE OF CONSULTATION: 02/17/2018 INFECTIOUS DISEASE CONSULTATION CONSULTING PHYSICIAN: Jake Naqvi M.D. REQUESTING PHYSICIAN: Shani Moses M.D. REASON FOR CONSULTATION: Evaluation of the patient for sepsis and antibiotic management. HISTORY OF PRESENT ILLNESS: The patient is a 58-year-old male with multiple medical problems as listed below, who was brought to this medical center due to weakness and worsening of the decubitus wound associated with the purulent discharge. An Infectious Disease consultation has been requested for further evaluation of the patient and antibiotic management. The patient is not able to provide information. Information is gathered through the chart and speaking to staff. PAST MEDICAL HISTORY: 1. Significant for recent illnesses with Staph bacteremia, treated with four weeks of antibiotic treatment. 2. History of a recent Pseudomonas urinary tract infection. 3. History of vent-dependent respiratory failure. 4. Status post trach and percutaneous endoscopic gastrostomy. 5. Dementia. 6. Seizure disorder. 7. History of pacemaker placement. 8. Hypertension. 9. COPD. 10. Diabetes. MEDICATION: Vancomycin. ALLERGIES: No known drug allergies. SOCIAL HISTORY: The patient lives in long term. FAMILY HISTORY: Unavailable. REVIEW OF SYSTEMS: Unobtainable. PHYSICAL EXAMINATION: VITAL SIGNS: Temperature 99, blood pressure 98/60, and pulse 115. HEENT: Mild pale conjunctivae. No icterus. NECK: No lymphadenopathy. CHEST: Coarse breathing sounds. HEART: . ABDOMEN: Soft. EXTREMITIES: The patient has multiple decubitus on lower sacral and hips. The left hip has significant purulent discharge. NEUROLOGIC: Awake. LABORATORY DATA: White blood cells of 11, hemoglobin 8, and platelets 347,000. BUN 31 and creatinine 0.7. AST, ALT, and alkaline phosphatase is elevated. Chest x-ray, no acute process. ASSESSMENT: The patient is a 58-year-old male with, 1. Sepsis. 2. Multiple infected lower extremity decubitus, rule out osteomyelitis. 3. Purulent discharge from left hip. 4. Rule out bacteremia. 5. Mild leukocytosis. 6. Afebrile. PLAN: 1. We will continue the patient on vancomycin. Add Zosyn. 2. Monitor CBC. 3. Monitor BMP. 4. Monitor cultures (blood and wound). 5. I recommend surgical evaluation for extensive debridement of the wounds. 6. Bone scan to rule out osteomyelitis. 7. Monitor chest x-ray. 8. Continue vent support. 9. Based on the patient's clinical course and labs, we will do further recommendations. Thank you, Dr. Moses, for allowing me to participate in the care of this patient. I will follow the patient with you during this hospitalization. Jake Naqvi M.D. DR: JEANNA JOB#: [id number] CC:
--- NOTE | 2018-02-17 17:39 | Cardiology Report ---
APPROVED REPORT EKG Measurement Heart [id number] Normal sinus rhythm ST elevation, consider early repolarization, pericarditis, or injury Prolonged QT Abnormal ECG
[2018-02-17] MEDS: Vancomycin 500mg/D5W 110ml IVPB SCH ×2 (21:24)
[2018-02-17] MEDS ORDERED: Vancomycin 1 GM in D5W 275 ML IVPB SCH (23:00)
[2018-02-18] VITALS: BP 116/62
[2018-02-18 04:00] VITALS: BP 128/60
[2018-02-18 06:12] LABS: HEMATOCRIT 25.2 % (42.0-52.0); HEMOGLOBIN 7.8 G/DL (14.2-18.0); MEAN CORPUSCULAR VOLUME 91 FL (80-99); PLATELET COUNT 449 K/UL (150-450); RED BLOOD COUNT 2.76 M/UL (4.70-6.10); RED CELL DISTRIBUTION WIDTH 16.1 % (11.6-14.8); WHITE BLOOD COUNT 8.4 K/UL (4.8-10.8)
[2018-02-18] MEDS: Piperacillin/Tazobactam 3.375 GM in NS 110 ML IVPB SCH ×2 (06:20→23:56)
[2018-02-18 06:21] LABS: ALANINE AMINOTRANSFERASE 133 U/L (12-78); ALBUMIN 1.6 G/DL (3.4-5.0); ALBUMIN/GLOBULIN RATIO 0.3 (1.0-2.7); ANION GAP 5 mmol/L (5-15); ASPARTATE AMINO TRANSFERASE 59 U/L (15-37); BILIRUBIN,TOTAL 0.2 MG/DL (0.2-1.0); BLOOD UREA NITROGEN 25 mg/dL (7-18); CALCIUM 8.9 MG/DL (8.5-10.1); CARBON DIOXIDE 29 MMOL/L (21-32); CHLORIDE 113 MMOL/L (98-107); CREATININE 0.9 MG/DL (0.55-1.30); PHOSPHORUS 2.9 MG/DL (2.5-4.9); POTASSIUM 3.8 MMOL/L (3.5-5.1); SODIUM 147 MMOL/L (136-145)
[2018-02-18 07:14] LABS: ALKALINE PHOSPHATASE 151 U/L (46-116)
[2018-02-18 08:00] VITALS: BP 135/72
[2018-02-18] MEDS: Pantoprazole Inj IV SCH (08:40)
[2018-02-18] MEDS: Vancomycin 500mg/D5W 110ml IVPB SCH ×2 (08:40)
[2018-02-18] MEDS: Heparin 5000 units/ml inj SUBQ SCH ×2 (09:00→23:57)
[2018-02-18 12:00] VITALS: BP 104/63
--- NOTE | 2018-02-18 12:07 | Pulmonolgy Critical Care Note ---
Critical Care - Asmt/Plan Problems: (1) Chronic respiratory failure (2) Anemia (3) Atrial fibrillation (4) EF of 30 (5) Feeding by G-tube (6) Tracheostomy care (7) Transaminitis Respiratory: monitor respiratory rate, adjust FIO2 Cardiac: continue to monitor HR/BP Renal: F/U I&O, keep IV fluid Infectious Disease: check cultures Gastrointestinal: continue feedings/current rate, hold feedings Endocrine: check TSH Hematologic: transfuse if hgb<8.5 Neurologic: PRN Ativan, keep patient comfortable Affect: PRN ativan Prophylaxis: Heparin Notes Reviewed: cardio, renal Discussed with: consultants, family service caseworkermanager cafe - Objective Last 24 Hour Vital Signs Date Time Temp Pulse Resp B/P (MAP) Pulse Ox O2 Delivery O2 Flow Rate FiO2 02/18/18 10:58 109 22 35 02/18/18 10:57 100.4 02/18/18 09:58 101.8 02/18/18 08:59 109 24 35 02/18/18 08:00 35 02/18/18 08:00 99.2 119 36 135/72 100 Mechanical Ventilator 35 99.2 02/18/18 07:51 113 02/18/18 06:55 106 21 35 02/18/18 05:07 107 20 35 02/18/18 04:00 98.4 117 26 128/60 100 Mechanical Ventilator 35 98.4 02/18/18 04:00 107 02/18/18 04:00 35 02/18/18 03:27 103 22 35 02/18/18 01:24 98 23 35 02/18/18 00:00 35 02/18/18 00:00 114 02/18/18 00:00 98.0 117 26 116/62 100 Mechanical Ventilator 35 98.0 02/17/18 23:08 102 22 35 02/17/18 21:22 112 25 35 02/17/18 20:00 116 02/17/18 20:00 98.6 117 26 100/60 100 Mechanical Ventilator 35 98.6 02/17/18 20:00 35 02/17/18 19:14 112 21 35 02/17/18 16:59 119 20 35 02/17/18 16:04 97.9 117 28 96/58 100 Mechanical Ventilator 35 97.9 02/17/18 16:03 35 02/17/18 16:00 118 4/3/18 14:35 98 19 35 02/17/18 13:06 98 19 35 Status: awake Condition: critical HEENT: atraumatic Neck: full ROM Lungs: chest wall tender Heart: HR/BP unstable Abdomen: soft, active bowel sounds Extremities: no C/C/E Decubiti: location Critical Care - Subjective ROS Limited/Unobtainable: Yes Condition: critical EKG Rhythm: Sinus Rhythm FI02: 35 Vent Support Breath Rate: 8 Vent Support Mode: IMV/SIMV Vent Tidal Volume: 600 Sputum Amount: Small PEEP: 5.0 PIP: 24 Tube Feeding Amount: 45 I&O: Intake and Output 02/17/18 02/18/18 19:00 07:00 Intake Total 102.5 ml 495.0 ml Output Total 600 ml 500 ml Balance -497.5 ml -5.0 ml Free Water 60 ml IV Total 82.5 ml 110.0 ml Tube Feeding 20 ml 325 ml Output Urine Total 600 ml 500 ml # Bowel Movements 3 CXR: JENNIE, cardiomegaly Labs: Laboratory Tests Test 02/18/18 05:15 White Blood Count 8.4 K/UL (4.8-10.8) Red Blood Count 2.76 M/UL (4.70-6.10) L Hemoglobin 7.8 G/DL (14.2-18.0) L Hematocrit 25.2 % (42.0-52.0) L Mean Corpuscular Volume 91 FL (80-99) Mean Corpuscular Hemoglobin 28.3 PG (27.0-31.0) Mean Corpuscular Hemoglobin Concent 31.0 G/DL (32.0-36.0) L Red Cell Distribution Width 16.1 % (11.6-14.8) H Platelet Count 449 K/UL (150-450) Mean Platelet Volume 7.5 FL (6.5-10.1) Neutrophils (%) (Auto) % (45.0-75.0) Lymphocytes (%) (Auto) % (20.0-45.0) Monocytes (%) (Auto) % (1.0-10.0) Eosinophils (%) (Auto) % (0.0-3.0) Basophils (%) (Auto) % (0.0-2.0) Differential Total Cells Counted 100 Neutrophils % (Manual) 78 % (45-75) H Lymphocytes % (Manual) 16 % (20-45) L Monocytes % (Manual) 3 % (1-10) Eosinophils % (Manual) 3 % (0-3) Basophils % (Manual) 0 % (0-2) Band Neutrophils 0 % (0-8) Platelet Estimate Adequate Platelet Morphology Normal Polychromasia 1+ Hypochromasia 1+ Anisocytosis 1+ Erythrocyte Sedimentation Rate 132 MM/HR (0-20) H Sodium Level 147 MMOL/L (136-145) H Potassium Level 3.8 MMOL/L (3.5-5.1) Chloride Level 113 MMOL/L (98-107) H Carbon Dioxide Level 29 MMOL/L (21-32) Anion Gap 5 mmol/L (5-15) Blood Urea Nitrogen 25 mg/dL (7-18) H Creatinine 0.9 MG/DL (0.55-1.30) Estimat Glomerular Filtration Rate > 60 mL/min (>60) Glucose Level 117 MG/DL (74-106) H Calcium Level 8.9 MG/DL (8.5-10.1) Phosphorus Level 2.9 MG/DL (2.5-4.9) Magnesium Level 2.2 MG/DL (1.8-2.4) Total Bilirubin 0.2 MG/DL (0.2-1.0) Aspartate Amino Transf (AST/SGOT) 59 U/L (15-37) H Alanine Aminotransferase (ALT/SGPT) 133 U/L (12-78) H Alkaline Phosphatase 151 U/L (46-116) H Total Protein 7.5 G/DL (6.4-8.2) Albumin 1.6 G/DL (3.4-5.0) L Globulin 5.9 g/dL Albumin/Globulin Ratio 0.3 (1.0-2.7) L Shani Moses MD Feb 18, 2018 12:07
--- NOTE | 2018-02-18 12:15 | Consultation ---
Consult Note Assessment/Plan JOB ID [id number] Venancio James MD Feb 18, 2018 12:15
--- NOTE | 2018-02-18 12:59 | General Progress Note ---
Progress Note Progress Note pt is hospitalized b/o anemia. He needs blood transfusion. No family is available to sign the consents. Shani Moses MD Feb 18, 2018 12:59
--- NOTE | 2018-02-18 14:52 | Infectious Diseases Prog Note ---
Assessment/Plan Assessment/Plan ASSESSMENT: The patient is a 58-year-old male with, Sepsis Multiple infected lower extremity decubitus, Ro osteomyelitis Purulent discharge from left hip. Rule out bacteremia. Mild leukocytosis Afebrile Ch transaminitis Hep C Ab + US : no sig findings SP Staph bacteremia, ( SP 4 wks AB rx ) Hx of Pseudomonas urinary tract infection. VDRF Status post trach and percutaneous endoscopic gastrostomy. Dementia Seizure disorder. History of pacemaker placement. Hypertension. COPD. Diabetes. PLAN: Cont pt on vancomycin and Zosyn d# 2 Monitor CBC Monitor BMP. Monitor cultures (blood and wound) Rec I/D of the wound ( Dw PCP ) Bone scan to rule out osteomyelitis. Monitor chest x-ray. Continue vent support. Hep C up w as out pt Subjective Allergies: Coded Allergies: No Known Allergies (Unverified , 03/07/17) Subjective on vent Objective Vital Signs Last 24 Hour Vital Signs Date Time Temp Pulse Resp B/P (MAP) Pulse Ox O2 Delivery O2 Flow Rate FiO2 02/18/18 12:31 109 22 35 02/18/18 12:00 115 02/18/18 12:00 99.3 115 27 104/63 99 Mechanical Ventilator 35 99.3 02/18/18 12:00 35 02/18/18 10:58 109 22 35 02/18/18 10:57 100.4 02/18/18 09:58 101.8 02/18/18 08:59 109 24 35 02/18/18 08:00 35 02/18/18 08:00 99.2 119 36 135/72 100 Mechanical Ventilator 35 99.2 02/18/18 07:51 113 02/18/18 06:55 106 21 35 02/18/18 05:07 107 20 35 02/18/18 04:00 98.4 117 26 128/60 100 Mechanical Ventilator 35 98.4 02/18/18 04:00 107 02/18/18 04:00 35 02/18/18 03:27 103 22 35 02/18/18 01:24 98 23 35 02/18/18 00:00 35 02/18/18 00:00 114 02/18/18 00:00 98.0 117 26 116/62 100 Mechanical Ventilator 35 98.0 02/17/18 23:08 102 22 35 02/17/18 21:22 112 25 35 02/17/18 20:00 116 02/17/18 20:00 98.6 117 26 100/60 100 Mechanical Ventilator 35 98.6 02/17/18 20:00 35 02/17/18 19:14 112 21 35 02/17/18 16:59 119 20 35 02/17/18 16:04 97.9 117 28 96/58 100 Mechanical Ventilator 35 97.9 02/17/18 16:03 35 02/17/18 16:00 118 Height (Feet): 5 Height (Inches): 11.00 Weight (Pounds): 120 HEENT: mucous membranes moist Respiratory/Chest: decreased breath sounds Cardiovascular: regular rhythm Abdomen: no organomegaly Laboratory Tests Test 02/18/18 05:15 White Blood Count 8.4 K/UL (4.8-10.8) Red Blood Count 2.76 M/UL (4.70-6.10) L Hemoglobin 7.8 G/DL (14.2-18.0) L Hematocrit 25.2 % (42.0-52.0) L Mean Corpuscular Volume 91 FL (80-99) Mean Corpuscular Hemoglobin 28.3 PG (27.0-31.0) Mean Corpuscular Hemoglobin Concent 31.0 G/DL (32.0-36.0) L Red Cell Distribution Width 16.1 % (11.6-14.8) H Platelet Count 449 K/UL (150-450) Mean Platelet Volume 7.5 FL (6.5-10.1) Neutrophils (%) (Auto) % (45.0-75.0) Lymphocytes (%) (Auto) % (20.0-45.0) Monocytes (%) (Auto) % (1.0-10.0) Eosinophils (%) (Auto) % (0.0-3.0) Basophils (%) (Auto) % (0.0-2.0) Differential Total Cells Counted 100 Neutrophils % (Manual) 78 % (45-75) H Lymphocytes % (Manual) 16 % (20-45) L Monocytes % (Manual) 3 % (1-10) Eosinophils % (Manual) 3 % (0-3) Basophils % (Manual) 0 % (0-2) Band Neutrophils 0 % (0-8) Platelet Estimate Adequate Platelet Morphology Normal Polychromasia 1+ Hypochromasia 1+ Anisocytosis 1+ Erythrocyte Sedimentation Rate 132 MM/HR (0-20) H Sodium Level 147 MMOL/L (136-145) H Potassium Level 3.8 MMOL/L (3.5-5.1) Chloride Level 113 MMOL/L (98-107) H Carbon Dioxide Level 29 MMOL/L (21-32) Anion Gap 5 mmol/L (5-15) Blood Urea Nitrogen 25 mg/dL (7-18) H Creatinine 0.9 MG/DL (0.55-1.30) Estimat Glomerular Filtration Rate > 60 mL/min (>60) Glucose Level 117 MG/DL (74-106) H Calcium Level 8.9 MG/DL (8.5-10.1) Phosphorus Level 2.9 MG/DL (2.5-4.9) Magnesium Level 2.2 MG/DL (1.8-2.4) Total Bilirubin 0.2 MG/DL (0.2-1.0) Aspartate Amino Transf (AST/SGOT) 59 U/L (15-37) H Alanine Aminotransferase (ALT/SGPT) 133 U/L (12-78) H Alkaline Phosphatase 151 U/L (46-116) H Total Protein 7.5 G/DL (6.4-8.2) Albumin 1.6 G/DL (3.4-5.0) L Globulin 5.9 g/dL Albumin/Globulin Ratio 0.3 (1.0-2.7) L Current Medications Medications (Trade) Dose Ordered Sig/Tameka Route PRN Reason Start Time Stop Time Status Last Admin Dose Admin Acetaminophen (Tylenol) 650 mg Q4H PRN ORAL FEVER 02/16/18 23:15 03/18/18 23:14 02/18/18 09:58 Albuterol/ Ipratropium (Albuterol/ Ipratropium) 3 ml EVERY 4 HOURS PRN HHN Shortness of Breath 02/16/18 23:15 02/21/18 23:14 Dextrose (Dextrose 50%) 25 ml STAT PRN IV HYPOGLYCEMIA 02/18/18 08:45 03/20/18 08:44 Dextrose (Dextrose 50%) 50 ml STAT PRN IV Hypoglycemia 02/18/18 08:45 03/18/18 23:14 Heparin Sodium (Porcine) (Heparin 5000 units/ml) 5,000 units EVERY 12 HOURS SUBQ 02/17/18 09:00 03/19/18 08:59 02/17/18 21:25 Lorazepam (Ativan 2mg/ml 1ml) 2 mg EVERY 2 HOURS PRN IV For Anxiety 02/16/18 23:15 02/23/18 23:14 Morphine Sulfate (Morphine Sulfate) 4 mg EVERY 4 HOURS PRN IVP Severe Pain (Pain Scale 7-10) 02/16/18 23:15 02/23/18 23:14 Ondansetron HCl (Zofran) 4 mg Q6H PRN IVP Nausea & Vomiting 02/16/18 23:15 03/18/18 23:14 Pantoprazole (Protonix) 40 mg DAILY IV 02/17/18 09:00 03/19/18 08:59 02/18/18 08:40 Piperacillin Sod/ Tazobactam Sod 3.375 gm/Sodium Chloride 110 ml @ 27.5 mls/hr Q8HR IVPB 02/17/18 14:30 02/24/18 14:29 02/18/18 06:20 Polyethylene Glycol (Miralax) 17 gm DAILYPRN PRN ORAL Constipation 02/16/18 23:15 03/18/18 23:14 Vancomycin HCl (Vanco rx to dose) 1 ea DAILY PRN MISC . 02/17/18 08:30 03/19/18 08:29 Vancomycin HCl 500 mg/Dextrose 110 ml @ 110 mls/hr Q12HR IVPB 02/17/18 21:00 02/22/18 20:59 02/18/18 08:40 Jake Naqvi MD Feb 18, 2018 14:52
[2018-02-18 16:00] VITALS: BP 119/67
--- NOTE | 2018-02-18 16:02 | Diagnostic Imaging Report ---
Indication: Cellulitis. Bilateral buttock wounds. Posterior sacral wound. Technique: 24.4 mCi of technetium 99 M-MDP was injected intravenously. A triple phase bone scan was then performed with blood flow, blood pool and delayed planar imaging in the region of interest. Several spot images were also obtained. Comparison: None Findings: . Study was limited and technically difficult because of the patient's contracted extremities. Blood flow images are noncontributory. The blood pool imaging shows no abnormality. Delayed planar images show uptake corresponding to areas of soft tissue ossification above both hip joints. By CT 07/10/2017 heterotopic bone noted above both hip joints which corresponds to areas of abnormal uptake. The sacrum is not adequately seen in part due to tracer activity within the bladder and difficulty obtaining a true lateral image. IMPRESSION: Nondiagnostic examination with regard to the sacrum. Abnormal uptake involving periacetabular soft tissues corresponding to heterotopic bone or myositis ossificans. Study is technically limited. Recommendation: Specific areas of soft tissue ulceration should be noted and referenced upon further MRI imaging which is recommended to evaluate for osteomyelitis. If MRI is performed, the areas of skin ulceration should be marked clearly. The current study as obtained is nondiagnostic in this regard.
--- NOTE | 2018-02-18 16:41 | Consultation ---
History of Present Illness General Date patient seen: Feb 18, 2018 Chief Complaint: Abnormal Labs Reason for Consultation: large decubitus ulcers Present Illness HPI 58M multiple medical comorbidities and under long time nursing full care with known decubitus ulcers, trach, peg, non verbal presented with anemia and worsening weakness. On admission noted to have large foul smelling deep decubitus ulcers with drainage. Surgery called to evaluate. patient seen, chart reviewed, case discussed. Allergies: Coded Allergies: No Known Allergies (Unverified , 03/07/17) Medication History Scheduled Amino Acids/Protein Hydrolys (Pro-Stat Liquid), 30 ML ORAL THREE TIMES A DAY, ( Reported) Amiodarone Hcl (Amiodarone Hcl), 200 MG GT DAILY, (Reported) Amiodarone Hcl* (Amiodarone Hcl*), 200 MG GT DAILY, (Reported) Arginine/Ascorbate Sod/Coy AC (Arginaid Powder), 1 EACH GT TWICE A DAY, ( Reported) Ascorbic Acid* (Vitamin C*), 500 MG GT DAILY, (Reported) Ascorbic Acid* (Vitamin C*), 500 MG GT DAILY, (Reported) Aspirin* (Aspir 81*), 81 MG GT DAILY, (Reported) Carvedilol (Coreg), 3.125 MG GT Q12HR Cran/Vitc/Mannose/Inulin/Brom (Uti-Stat Liquid), 30 ML GT BID, (Reported) Docusate Sodium* (Docusate Sodium*), 100 MG GT DAILY, (Reported) Ferrous Sulfate (Ferrous Sulfate), 330 MG GT DAILY, (Reported) Folic Acid* (Folic Acid*), 1 MG ORAL DAILY, (Reported) Folic Acid* (Folic Acid*), 1 MG GT DAILY, (Reported) Furosemide* (Lasix*), 60 MG GT DAILY, (Reported) Heparin Sod (Porcine) (Heparin Sodium*), 5,000 UNITS SUBQ EVERY 12 HOURS, ( Reported) Lactulose (Lactulose*), 30 ML GT BID, (Reported) Levetiracetam (Keppra), 500 MG GT Q12HR Lisinopril* (Lisinopril*), 10 MG GT DAILY, (Reported) Lorazepam* (Ativan*), 0.5 MG GT PRN, (Reported) Meropenem (Meropenem), 1 GM IV EVERY 8 HOURS Multivitamin With Minerals (Multivitamins With Minerals*), 1 TAB GT DAILY, ( Reported) Nitrofurantoin Macrocrystal (Nitrofurantoin), 100 MG GT BID, (Reported) Omeprazole (Omeprazole), 40 MG GT DAILY, (Reported) Polyethylene Glycol 3350* (Miralax*), 17 GM GT PRN, (Reported) Potassium (Potassium), 40 MG GT BID, (Reported) Tramadol Hcl* (Ultram*), 50 MG GT DAILY, (Reported) Vancomycin Hcl/D5w (Vancomycin-D5w 1 G/250 Ml), 1 GM IVPB Q24H Warfarin Sod (Coumadin*), 8 MG GT DAILY, (Reported) Zinc Sulfate (Zinc Sulfate*), 220 MG ORAL DAILY, (Reported) Zinc Sulfate (Zinc Sulfate*), 220 MG GT DAILY, (Reported) Scheduled PRN Acetaminophen* (Tylenol*), 325 MG GT Q4H PRN for Mild Pain/Temp > 100.5, ( Reported) Acetaminophen* (Acetaminophen 325MG Tablet*), 650 MG GT Q4H PRN for Fever/ Headache/Mild Pain, (Reported) Albuterol Sulfate* (Albuterol Sulfate Hhn*), 3 ML INH Q3HR PRN for Shortness of Breath, (Reported) Albuterol Sulfate* (Albuterol Sulfate Hhn*), 3 ML INH Q6H PRN for Shortness of Breath, (Reported) Clonidine Hcl (Clonidine Hcl), 0.1 MG PO Q6HR PRN for For High Blood Pressure, ( Reported) Hydrocodone Bit/Acetaminophen 5-325* (Armona 5-325 Tablet*), 1 TAB GT Q4H PRN for For Pain, (Reported) Hydrocodone Bit/Acetaminophen 5-325* (Armona 5-325 Tablet*), 1 TAB ORAL Q4H PRN for For Pain, (Reported) Hydrocodone Bit/Acetaminophen 5-325* (Armona 5-325 Tablet*), 1 TAB ORAL Q4H PRN for For Pain, (Reported) Lorazepam* (Ativan*), 0.5 MG GT EVERY 6 HOURS PRN for For Anxiety, (Reported) Ondansetron* (Zofran*), 4 MG GT Q6H PRN for Nausea & Vomiting, (Reported) Ondansetron* (Zofran*), 4 MG GT Q6H PRN for Nausea & Vomiting, (Reported) Polyethylene Glycol 3350* (Miralax*), 17 GM GT DAILY PRN for Constipation, ( Reported) Tramadol Hcl* (Ultram*), 50 MG GT Q6H PRN for For Pain, (Reported) Tramadol Hcl* (Ultram*), 50 MG GT Q6H PRN for For Pain, (Reported) Miscellaneous Medications Chlorhexidine Gluconate (Chlorhexidine Gluconate), 15 ML TP, (Reported) Cran/Vitc/Mannose/Inulin/Brom (Uti-Stat Liquid), Unknown Dose PO, (Reported) Lactose-Reduced Food/Fiber (Jevity 1.2 Simone Liquid), 1,300 ML GT, (Reported) Patient History Limited by: medical condition History Provided By: Medical Record, PMD Healthcare decision maker Resuscitation status Full Code Advanced Directive on File Past Medical/Surgical History Past Medical/Surgical History: (1) Abnormal laboratory test result (2) Sepsis (3) MDRO (multiple drug resistant organisms) resistance (4) Septic shock (5) Bacteremia (6) Leukocytosis (7) VT (ventricular tachycardia) (8) Healthcare-associated pneumonia (9) Pressure ulcer, hip, left, unstageable (10) Acute on chronic respiratory failure (11) GI bleed (12) Tracheostomy care (13) Symptomatic anemia (14) Atrial fibrillation (15) EF of 30 (16) Feeding by G-tube (17) Chronic respiratory acidosis (18) Anemia (19) Transaminitis (20) Chronic respiratory failure Review of Systems ROS Narrative cannot obtain given patients medical condition Physical Exam General Appearance: no apparent distress, cachetic HEENT: mucous membranes moist Neck: trach Respiratory/Chest: normal breath sounds, no respiratory distress, no accessory muscle use Cardiovascular/Chest: normal peripheral pulses Abdomen: soft, no organomegaly, no mass Extremities: other - wasting Skin Exam: normal pigmentation Neurologic: unresponsiveness Last 24 Hour Vital Signs Date Time Temp Pulse Resp B/P (MAP) Pulse Ox O2 Delivery O2 Flow Rate FiO2 02/18/18 16:00 35 02/18/18 15:39 99.4 02/18/18 15:20 107 23 35 02/18/18 14:40 99.9 02/18/18 12:31 109 22 35 02/18/18 12:00 115 02/18/18 12:00 99.3 115 27 104/63 99 Mechanical Ventilator 35 99.3 02/18/18 12:00 35 02/18/18 10:58 109 22 35 02/18/18 09:58 101.8 02/18/18 08:59 109 24 35 02/18/18 08:00 35 02/18/18 08:00 99.2 119 36 135/72 100 Mechanical Ventilator 35 99.2 02/18/18 07:51 113 02/18/18 06:55 106 21 35 02/18/18 05:07 107 20 35 02/18/18 04:00 98.4 117 26 128/60 100 Mechanical Ventilator 35 98.4 02/18/18 04:00 107 02/18/18 04:00 35 02/18/18 03:27 103 22 35 02/18/18 01:24 98 23 35 02/18/18 00:00 35 02/18/18 00:00 114 02/18/18 00:00 98.0 117 26 116/62 100 Mechanical Ventilator 35 98.0 02/17/18 23:08 102 22 35 02/17/18 21:22 112 25 35 02/17/18 20:00 116 02/17/18 20:00 98.6 117 26 100/60 100 Mechanical Ventilator 35 98.6 02/17/18 20:00 35 02/17/18 19:14 112 21 35 02/17/18 16:59 119 20 35 Intake and Output 02/17/18 02/18/18 19:00 07:00 Intake Total 102.5 ml 495.0 ml Output Total 600 ml 500 ml Balance -497.5 ml -5.0 ml Free Water 60 ml IV Total 82.5 ml 110.0 ml Tube Feeding 20 ml 325 ml Output Urine Total 600 ml 500 ml # Bowel Movements 3 Laboratory Tests Test 02/18/18 05:15 White Blood Count 8.4 K/UL (4.8-10.8) Red Blood Count 2.76 M/UL (4.70-6.10) L Hemoglobin 7.8 G/DL (14.2-18.0) L Hematocrit 25.2 % (42.0-52.0) L Mean Corpuscular Volume 91 FL (80-99) Mean Corpuscular Hemoglobin 28.3 PG (27.0-31.0) Mean Corpuscular Hemoglobin Concent 31.0 G/DL (32.0-36.0) L Red Cell Distribution Width 16.1 % (11.6-14.8) H Platelet Count 449 K/UL (150-450) Mean Platelet Volume 7.5 FL (6.5-10.1) Neutrophils (%) (Auto) % (45.0-75.0) Lymphocytes (%) (Auto) % (20.0-45.0) Monocytes (%) (Auto) % (1.0-10.0) Eosinophils (%) (Auto) % (0.0-3.0) Basophils (%) (Auto) % (0.0-2.0) Differential Total Cells Counted 100 Neutrophils % (Manual) 78 % (45-75) H Lymphocytes % (Manual) 16 % (20-45) L Monocytes % (Manual) 3 % (1-10) Eosinophils % (Manual) 3 % (0-3) Basophils % (Manual) 0 % (0-2) Band Neutrophils 0 % (0-8) Platelet Estimate Adequate Platelet Morphology Normal Polychromasia 1+ Hypochromasia 1+ Anisocytosis 1+ Erythrocyte Sedimentation Rate 132 MM/HR (0-20) H Sodium Level 147 MMOL/L (136-145) H Potassium Level 3.8 MMOL/L (3.5-5.1) Chloride Level 113 MMOL/L (98-107) H Carbon Dioxide Level 29 MMOL/L (21-32) Anion Gap 5 mmol/L (5-15) Blood Urea Nitrogen 25 mg/dL (7-18) H Creatinine 0.9 MG/DL (0.55-1.30) Estimat Glomerular Filtration Rate > 60 mL/min (>60) Glucose Level 117 MG/DL (74-106) H Calcium Level 8.9 MG/DL (8.5-10.1) Phosphorus Level 2.9 MG/DL (2.5-4.9) Magnesium Level 2.2 MG/DL (1.8-2.4) Total Bilirubin 0.2 MG/DL (0.2-1.0) Aspartate Amino Transf (AST/SGOT) 59 U/L (15-37) H Alanine Aminotransferase (ALT/SGPT) 133 U/L (12-78) H Alkaline Phosphatase 151 U/L (46-116) H Total Protein 7.5 G/DL (6.4-8.2) Albumin 1.6 G/DL (3.4-5.0) L Globulin 5.9 g/dL Albumin/Globulin Ratio 0.3 (1.0-2.7) L Height (Feet): 5 Height (Inches): 11.00 Weight (Pounds): 120 Medications Current Medications Medications (Trade) Dose Ordered Sig/Tameka Route PRN Reason Start Time Stop Time Status Last Admin Dose Admin Acetaminophen (Tylenol) 650 mg Q4H PRN ORAL FEVER 02/16/18 23:15 03/18/18 23:14 02/18/18 14:40 Albuterol/ Ipratropium (Albuterol/ Ipratropium) 3 ml EVERY 4 HOURS PRN HHN Shortness of Breath 02/16/18 23:15 02/21/18 23:14 Dextrose (Dextrose 50%) 25 ml STAT PRN IV HYPOGLYCEMIA 02/18/18 08:45 03/20/18 08:44 Dextrose (Dextrose 50%) 50 ml STAT PRN IV Hypoglycemia 02/18/18 08:45 03/18/18 23:14 Heparin Sodium (Porcine) (Heparin 5000 units/ml) 5,000 units EVERY 12 HOURS SUBQ 02/17/18 09:00 03/19/18 08:59 02/17/18 21:25 Lorazepam (Ativan 2mg/ml 1ml) 2 mg EVERY 2 HOURS PRN IV For Anxiety 02/16/18 23:15 02/23/18 23:14 Morphine Sulfate (Morphine Sulfate) 4 mg EVERY 4 HOURS PRN IVP Severe Pain (Pain Scale 7-10) 02/16/18 23:15 02/23/18 23:14 Ondansetron HCl (Zofran) 4 mg Q6H PRN IVP Nausea & Vomiting 02/16/18 23:15 03/18/18 23:14 Pantoprazole (Protonix) 40 mg DAILY IV 02/17/18 09:00 03/19/18 08:59 02/18/18 08:40 Piperacillin Sod/ Tazobactam Sod 3.375 gm/Sodium Chloride 110 ml @ 27.5 mls/hr Q8HR IVPB 02/17/18 14:30 02/24/18 14:29 02/18/18 06:20 Polyethylene Glycol (Miralax) 17 gm DAILYPRN PRN ORAL Constipation 02/16/18 23:15 03/18/18 23:14 Vancomycin HCl (Vanco rx to dose) 1 ea DAILY PRN MISC . 02/17/18 08:30 03/19/18 08:29 Vancomycin HCl 500 mg/Dextrose 110 ml @ 110 mls/hr Q12HR IVPB 02/17/18 21:00 02/22/18 20:59 02/18/18 08:40 Assessment/Plan Problem List: (1) Pressure ulcer, hip, left, unstageable Assessment & Plan: 58M with multiple large deep decubitus ulcers. very complex in that patient has large decubitus ulcers on right hip, sacrum, left hip and inbetween. multiple, all deep, all with mild fibrinous debris, and drainage. fortunately drainage serous. likely chronically infected/ colonized but no acute active severe infectious process noted. the left hip likely goes down to the bone. with such poor nutritional status from chronic illness will have very hard time healing any of these wounds. also with wounds in all directions very difficult to keep off wounds as he would need to. he is full care and requires assistance at all times. very complex difficult wounds to care for but will monitor with recs while in hospital. -bone scan -Abx -dressings TID -turn q2h -max nutritional needs. thank you for this consultation. will follow with recs ICD Codes: L89.220 - Pressure ulcer of left hip, unstageable SNOMED: [id number] Status: stable Derek Dong Feb 18, 2018 16:41
--- NOTE | 2018-02-18 19:15 | Consultation ---
DATE OF CONSULTATION: 02/18/2018 HEMATOLOGY/ONCOLOGY CONSULTATION CONSULTING PHYSICIAN: Venancio James MD REFERRING PHYSICIAN: Shani Moses M.D. REASON FOR CONSULTATION: Progressive anemia, hemoglobin 7.8. IDENTIFICATION: Dear Dr. Moess, The patient is a pleasant 58-year-old male with past medical history significant for chronic PEG, chronic trach, cardiomyopathy at this time presented from nursing facility with weakness as well as anemia, nonverbal, difficult to obtain any further history. The patient currently in the stepdown unit. Hemoglobin is currently 7.8. One more unit of PRBC ordered to total and nurse at this time is Shala who assessed the patient in the morning and the patient was noted to be febrile to 101.8 degrees Fahrenheit and we will continue to follow at this time. PAST MEDICAL HISTORY: Significant for: 1. Recent illness of Staph bacteremia, treated with four weeks of antibiotics, . 2. Recent Pseudomonas UTI. 3. History of vent-dependent respiratory failure, status post trach and percutaneous endoscopic gastrostomy. 4. Dementia. 5. Seizure disorder. 6. Pacemaker placement. 7. Hypertension. 8. COPD. 9. Diabetes mellitus. MEDICATIONS: The patient has been on vancomycin currently. ALLERGIES: No known drug allergies. SOCIAL HISTORY: The patient lives in a fpc. No illicit drug use. No alcohol per review of the record as per the patient, however, difficult to obtain as the patient is currently nonverbal. FAMILY HISTORY: Noncontributory. REVIEW OF SYSTEMS: Difficult to obtain. PHYSICAL EXAMINATION: VITAL SIGNS: Reviewed. GENERAL: No acute distress. PULMONARY: Status post trach. CARDIOVASCULAR: Regular rate. No S3 or S4. ABDOMEN: Soft, nontender, and nondistended. Status post PEG. EXTREMITIES: No cyanosis, swelling, or edema noted. LABORATORY DATA: Hemoglobin 7.8. ASSESSMENT AND RECOMMENDATIONS: 1. Anemia due to underlying chronic disease. Hemoglobin goal is above 7. Anemia workup has been ordered. Continue to closely monitor. It appears to be anemia secondary to chronic disease. The patient is currently debilitated, bedbound status. 2. Leukocytosis, likely secondary to infectious process from before, currently getting antibiotic vancomycin. 3. Multiple infected decubitus ulceration, rule out osteomyelitis. 4. Sepsis, currently being treated. 5. Chronic vent-dependant respiratory failure. 6. Dysphagia, status post percutaneous endoscopic gastrostomy. 7. Generalized weakness and anemia. I appreciate consultation. Venancio James M.D. DR: Jose Elias JOB#: [id number] CC:
[2018-02-18 20:00] VITALS: BP 150/55
[2018-02-18] MEDS ORDERED: NS 275ml ONE (21:28)
[2018-02-18] MEDS ORDERED: Tubing IV Secondary IV ONE (21:28)
[2018-02-19] VITALS: BP 140/75
[2018-02-19] MEDS: Piperacillin/Tazobactam 3.375 GM in NS 110 ML IVPB SCH ×4 (02:07→21:14)
[2018-02-19] MEDS: Vancomycin 500mg/D5W 110ml IVPB SCH ×4 (03:24→14:44)
[2018-02-19 04:00] VITALS: BP 143/72
[2018-02-19 07:22] LABS: BASOPHILS % (AUTO) 0.6 % (0.0-2.0); EOSINOPHILS % (AUTO) 2.8 % (0.0-3.0); HEMATOCRIT 32.7 % (42.0-52.0); HEMOGLOBIN 10.2 G/DL (14.2-18.0); LYMPHOCYTES % (AUTO) 13.8 % (20.0-45.0); MEAN CORPUSCULAR VOLUME 91 FL (80-99); MONOCYTES % (AUTO) 7.3 % (1.0-10.0); NEUTROPHILS % (AUTO) 75.6 % (45.0-75.0); PLATELET COUNT 491 K/UL (150-450); RED BLOOD COUNT 3.57 M/UL (4.70-6.10); RED CELL DISTRIBUTION WIDTH 15.1 % (11.6-14.8); WHITE BLOOD COUNT 13.6 K/UL (4.8-10.8)
[2018-02-19 07:47] LABS: ALANINE AMINOTRANSFERASE 118 U/L (12-78); ALBUMIN 1.7 G/DL (3.4-5.0); ALBUMIN/GLOBULIN RATIO 0.3 (1.0-2.7); ALKALINE PHOSPHATASE 155 U/L (46-116); ANION GAP 5 mmol/L (5-15); ASPARTATE AMINO TRANSFERASE 50 U/L (15-37); BILIRUBIN,TOTAL 0.3 MG/DL (0.2-1.0); BLOOD UREA NITROGEN 20 mg/dL (7-18); CALCIUM 9.2 MG/DL (8.5-10.1); CARBON DIOXIDE 31 MMOL/L (21-32); CHLORIDE 114 MMOL/L (98-107); CREATININE 0.9 MG/DL (0.55-1.30); PHOSPHORUS 2.5 MG/DL (2.5-4.9); POTASSIUM 3.5 MMOL/L (3.5-5.1); SODIUM 150 MMOL/L (136-145)
[2018-02-19 08:04] VITALS: BP 121/85
--- NOTE | 2018-02-19 08:13 | Diagnostic Imaging Report ---
APPROVED REPORT CPT Code: 71544 Present Symptoms Shortness of breath Comments: Technically difficult study. Limited visualization (patient has BLE contractures of the hip and knee). RIGHT LEG: Venous imaging reveals a patent deep venous system. There is no evidence of thrombus within the femoral, popliteal or tibial segments. The greater saphenous vein is also within normal limits. Doppler indicates normal spontaneous flow within these segments. LEFT LEG: Venous imaging reveals a patent deep venous system. There is no evidence of thrombus within the common and superficial femoral veins. The greater saphenous vein is also within normal limits. Doppler indicates normal spontaneous flow within these segments. The left popliteal and calf veins were not well visualized.
[2018-02-19 08:15] LABS: INR 1.1 (0.9-1.1)
[2018-02-19] MEDS: Pantoprazole Inj IV SCH (09:11)
[2018-02-19] MEDS: Heparin 5000 units/ml inj SUBQ SCH ×2 (09:13→21:14)
[2018-02-19] MEDS: Morphine Sulfate 4mg/ml Inj IVP PRN ×2 (10:21→21:33)
--- NOTE | 2018-02-19 11:32 | Infectious Diseases Prog Note ---
Assessment/Plan Assessment/Plan ASSESSMENT: The patient is a 58-year-old male with, Mild leukocytosis Fever Sepsis Multiple infected lower extremity decubitus, WndC x: P surg : does not recommend I/D due pt clinical condition Bone scan limited for eval of osteomyelitis. ( due to contracted Ext. ) Purulent discharge from left hip. Rule out bacteremia. Ch transaminitis Hep C Ab + US : no sig findings SP Staph bacteremia, ( SP 4 wks AB rx ) Hx of Pseudomonas urinary tract infection. VDRF Status post trach and percutaneous endoscopic gastrostomy. Dementia Seizure disorder. History of pacemaker placement. Hypertension. COPD. Diabetes. PLAN: Cont pt on vancomycin and Zosyn d#3 Monitor CBC Monitor BMP. Monitor cultures (blood and wound) Monitor chest x-ray. Continue vent support. Hep C up w as out pt Subjective Allergies: Coded Allergies: No Known Allergies (Unverified , 03/07/17) Subjective febrile Objective Vital Signs Last 24 Hour Vital Signs Date Time Temp Pulse Resp B/P (MAP) Pulse Ox O2 Delivery O2 Flow Rate FiO2 02/19/18 11:18 100.1 02/19/18 11:13 140 36 35 02/19/18 08:50 115 22 35 02/19/18 08:04 98.2 116 28 121/85 100 Mechanical Ventilator 35 98.2 02/19/18 08:00 115 02/19/18 08:00 35 02/19/18 07:07 117 21 35 02/19/18 05:06 123 30 35 02/19/18 04:00 35 02/19/18 04:00 97.9 115 23 143/72 100 Mechanical Ventilator 35 97.9 02/19/18 03:30 118 02/19/18 02:58 121 27 35 02/19/18 01:11 129 33 35 02/19/18 00:00 35 02/19/18 00:00 98.2 118 24 140/75 96 Mechanical Ventilator 35 98.2 02/18/18 23:26 120 02/18/18 22:47 112 27 35 02/18/18 21:01 97 25 35 02/18/18 20:00 97.7 94 22 150/55 100 Mechanical Ventilator 35 97.7 02/18/18 20:00 35 02/18/18 19:34 95 02/18/18 19:18 92 20 35 02/18/18 17:14 106 25 35 02/18/18 16:00 35 02/18/18 16:00 98.9 102 17 119/67 99 Mechanical Ventilator 35 98.9 02/18/18 15:48 103 02/18/18 15:39 99.4 02/18/18 15:20 107 23 35 02/18/18 14:40 99.9 02/18/18 12:31 109 22 35 02/18/18 12:00 115 02/18/18 12:00 99.3 115 27 104/63 99 Mechanical Ventilator 35 99.3 02/18/18 12:00 35 Height (Feet): 5 Height (Inches): 11.00 Weight (Pounds): 131 HEENT: mucous membranes moist Respiratory/Chest: no accessory muscle use Cardiovascular: regular rhythm Abdomen: no organomegaly Microbiology Date/Time Source Procedure Growth Status 02/17/18 03:30 Buttock Left Gram Stain - Final Resulted 02/17/18 03:30 Buttock Left Wound Culture Pending Resulted Laboratory Tests Test 02/18/18 20:20 02/19/18 05:10 Vancomycin Level Trough 16.1 ug/mL (5.0-12.0) H White Blood Count 13.6 K/UL (4.8-10.8) #H Red Blood Count 3.57 M/UL (4.70-6.10) L Hemoglobin 10.2 G/DL (14.2-18.0) #L Hematocrit 32.7 % (42.0-52.0) L Mean Corpuscular Volume 91 FL (80-99) Mean Corpuscular Hemoglobin 28.6 PG (27.0-31.0) Mean Corpuscular Hemoglobin Concent 31.3 G/DL (32.0-36.0) L Red Cell Distribution Width 15.1 % (11.6-14.8) H Platelet Count 491 K/UL (150-450) H Mean Platelet Volume 6.1 FL (6.5-10.1) L Neutrophils (%) (Auto) 75.6 % (45.0-75.0) H Lymphocytes (%) (Auto) 13.8 % (20.0-45.0) L Monocytes (%) (Auto) 7.3 % (1.0-10.0) Eosinophils (%) (Auto) 2.8 % (0.0-3.0) Basophils (%) (Auto) 0.6 % (0.0-2.0) Prothrombin Time 11.4 SEC (9.30-11.50) Prothromb Time International Ratio 1.1 (0.9-1.1) Activated Partial Thromboplast Time 30 SEC (23-33) Sodium Level 150 MMOL/L (136-145) H Potassium Level 3.5 MMOL/L (3.5-5.1) Chloride Level 114 MMOL/L (98-107) H Carbon Dioxide Level 31 MMOL/L (21-32) Anion Gap 5 mmol/L (5-15) Blood Urea Nitrogen 20 mg/dL (7-18) H Creatinine 0.9 MG/DL (0.55-1.30) Estimat Glomerular Filtration Rate > 60 mL/min (>60) Glucose Level 114 MG/DL (74-106) H Calcium Level 9.2 MG/DL (8.5-10.1) Phosphorus Level 2.5 MG/DL (2.5-4.9) Magnesium Level 2.0 MG/DL (1.8-2.4) Total Bilirubin 0.3 MG/DL (0.2-1.0) Aspartate Amino Transf (AST/SGOT) 50 U/L (15-37) H Alanine Aminotransferase (ALT/SGPT) 118 U/L (12-78) H Alkaline Phosphatase 155 U/L (46-116) H Total Protein 8.0 G/DL (6.4-8.2) Albumin 1.7 G/DL (3.4-5.0) L Globulin 6.3 g/dL Albumin/Globulin Ratio 0.3 (1.0-2.7) L Current Medications Medications (Trade) Dose Ordered Sig/Tameka Route PRN Reason Start Time Stop Time Status Last Admin Dose Admin Acetaminophen (Tylenol) 650 mg Q4H PRN ORAL FEVER 02/16/18 23:15 03/18/18 23:14 02/19/18 11:18 Albuterol/ Ipratropium (Albuterol/ Ipratropium) 3 ml EVERY 4 HOURS PRN HHN Shortness of Breath 02/16/18 23:15 02/21/18 23:14 Dextrose (Dextrose 50%) 25 ml STAT PRN IV HYPOGLYCEMIA 02/18/18 08:45 03/20/18 08:44 Dextrose (Dextrose 50%) 50 ml STAT PRN IV Hypoglycemia 02/18/18 08:45 03/18/18 23:14 Heparin Sodium (Porcine) (Heparin 5000 units/ml) 5,000 units EVERY 12 HOURS SUBQ 02/17/18 09:00 03/19/18 08:59 02/19/18 09:13 Lorazepam (Ativan 2mg/ml 1ml) 2 mg EVERY 2 HOURS PRN IV For Anxiety 02/16/18 23:15 02/23/18 23:14 Morphine Sulfate (Morphine Sulfate) 4 mg EVERY 4 HOURS PRN IVP Severe Pain (Pain Scale 7-10) 02/16/18 23:15 02/23/18 23:14 02/19/18 10:21 Ondansetron HCl (Zofran) 4 mg Q6H PRN IVP Nausea & Vomiting 02/16/18 23:15 03/18/18 23:14 Pantoprazole (Protonix) 40 mg DAILY IV 02/17/18 09:00 03/19/18 08:59 02/19/18 09:11 Piperacillin Sod/ Tazobactam Sod 3.375 gm/Sodium Chloride 110 ml @ 27.5 mls/hr Q8HR IVPB 02/17/18 14:30 02/24/18 14:29 02/19/18 05:40 Polyethylene Glycol (Miralax) 17 gm DAILYPRN PRN ORAL Constipation 02/16/18 23:15 03/18/18 23:14 Vancomycin HCl (Vanco rx to dose) 1 ea DAILY PRN MISC . 02/17/18 08:30 03/19/18 08:29 Vancomycin HCl 500 mg/Dextrose 110 ml @ 110 mls/hr Q12H IVPB 02/19/18 03:00 02/24/18 02:59 02/19/18 03:24 Jake Naqvi MD Feb 19, 2018 11:32
[2018-02-19 12:00] VITALS: BP 124/80
--- NOTE | 2018-02-19 12:18 | General Surgery Progress Note ---
General Surgery-Progress Note Subjective Additional Comments no acute events. Objective Last 24 Hour Vital Signs Date Time Temp Pulse Resp B/P (MAP) Pulse Ox O2 Delivery O2 Flow Rate FiO2 02/19/18 11:51 135 02/19/18 11:18 100.1 02/19/18 11:13 140 36 35 02/19/18 08:50 115 22 35 02/19/18 08:04 98.2 116 28 121/85 100 Mechanical Ventilator 35 98.2 02/19/18 08:00 115 02/19/18 08:00 35 02/19/18 07:07 117 21 35 02/19/18 05:06 123 30 35 02/19/18 04:00 35 02/19/18 04:00 97.9 115 23 143/72 100 Mechanical Ventilator 35 97.9 02/19/18 03:30 118 02/19/18 02:58 121 27 35 02/19/18 01:11 129 33 35 02/19/18 00:00 35 02/19/18 00:00 98.2 118 24 140/75 96 Mechanical Ventilator 35 98.2 02/18/18 23:26 120 02/18/18 22:47 112 27 35 02/18/18 21:01 97 25 35 02/18/18 20:00 97.7 94 22 150/55 100 Mechanical Ventilator 35 97.7 02/18/18 20:00 35 02/18/18 19:34 95 02/18/18 19:18 92 20 35 02/18/18 17:14 106 25 35 02/18/18 16:00 35 02/18/18 16:00 98.9 102 17 119/67 99 Mechanical Ventilator 35 98.9 02/18/18 15:48 103 02/18/18 15:39 99.4 02/18/18 15:20 107 23 35 02/18/18 14:40 99.9 02/18/18 12:31 109 22 35 I&O Intake and Output 02/18/18 02/19/18 19:00 07:00 Intake Total 815.0 ml 934.0 ml Output Total 250 ml 350 ml Balance 565.0 ml 584.0 ml Free Water 100 ml 130 ml IV Total 220.0 ml 309.0 ml Tube Feeding 495 ml 495 ml Output Urine Total 250 ml 350 ml # Bowel Movements 2 2 Dressing: saturated Wound: other - see wound care pictures Drains: none Cardiovascular: RSR Respiratory: clear Abdomen: soft, non-tender, present bowel sounds Extremities: no tenderness, no cyanosis Laboratory Tests Test 02/18/18 20:20 02/19/18 05:10 Vancomycin Level Trough 16.1 ug/mL (5.0-12.0) H White Blood Count 13.6 K/UL (4.8-10.8) #H Red Blood Count 3.57 M/UL (4.70-6.10) L Hemoglobin 10.2 G/DL (14.2-18.0) #L Hematocrit 32.7 % (42.0-52.0) L Mean Corpuscular Volume 91 FL (80-99) Mean Corpuscular Hemoglobin 28.6 PG (27.0-31.0) Mean Corpuscular Hemoglobin Concent 31.3 G/DL (32.0-36.0) L Red Cell Distribution Width 15.1 % (11.6-14.8) H Platelet Count 491 K/UL (150-450) H Mean Platelet Volume 6.1 FL (6.5-10.1) L Neutrophils (%) (Auto) 75.6 % (45.0-75.0) H Lymphocytes (%) (Auto) 13.8 % (20.0-45.0) L Monocytes (%) (Auto) 7.3 % (1.0-10.0) Eosinophils (%) (Auto) 2.8 % (0.0-3.0) Basophils (%) (Auto) 0.6 % (0.0-2.0) Prothrombin Time 11.4 SEC (9.30-11.50) Prothromb Time International Ratio 1.1 (0.9-1.1) Activated Partial Thromboplast Time 30 SEC (23-33) Sodium Level 150 MMOL/L (136-145) H Potassium Level 3.5 MMOL/L (3.5-5.1) Chloride Level 114 MMOL/L (98-107) H Carbon Dioxide Level 31 MMOL/L (21-32) Anion Gap 5 mmol/L (5-15) Blood Urea Nitrogen 20 mg/dL (7-18) H Creatinine 0.9 MG/DL (0.55-1.30) Estimat Glomerular Filtration Rate > 60 mL/min (>60) Glucose Level 114 MG/DL (74-106) H Calcium Level 9.2 MG/DL (8.5-10.1) Phosphorus Level 2.5 MG/DL (2.5-4.9) Magnesium Level 2.0 MG/DL (1.8-2.4) Total Bilirubin 0.3 MG/DL (0.2-1.0) Aspartate Amino Transf (AST/SGOT) 50 U/L (15-37) H Alanine Aminotransferase (ALT/SGPT) 118 U/L (12-78) H Alkaline Phosphatase 155 U/L (46-116) H Total Protein 8.0 G/DL (6.4-8.2) Albumin 1.7 G/DL (3.4-5.0) L Globulin 6.3 g/dL Albumin/Globulin Ratio 0.3 (1.0-2.7) L Plan Problems: (1) Pressure ulcer, hip, left, unstageable Assessment & Plan: 58M with multiple large deep decubitus ulcers. very complex in that patient has large decubitus ulcers on right hip, sacrum, left hip and inbetween. multiple, all deep, all with mild fibrinous debris, and drainage. fortunately drainage serous. likely chronically infected/ colonized but no acute active severe infectious process noted. the left hip likely goes down to the bone. with such poor nutritional status from chronic illness will have very hard time healing any of these wounds. also with wounds in all directions very difficult to keep off wounds as he would need to. he is full care and requires assistance at all times. very complex difficult wounds to care for but will monitor with recs while in hospital. -Abx -dressings TID. dry gauze for now while wound is so moist until good granulation tissue forms and fibrinous debris removed. -turn q2h -max nutritional needs. thank you for this consultation. will follow with recs Derek Dong Feb 19, 2018 12:18
--- NOTE | 2018-02-19 12:41 | Pulmonolgy Critical Care Note ---
Critical Care - Asmt/Plan Problems: (1) Chronic respiratory failure (2) Anemia (3) Atrial fibrillation (4) EF of 30 (5) Feeding by G-tube (6) Tracheostomy care (7) Transaminitis Respiratory: monitor respiratory rate, adjust FIO2, CXR Cardiac: continue pressors, continue to monitor HR/BP Renal: F/U I&O Infectious Disease: check cultures Gastrointestinal: hold feedings Endocrine: monitor blood sugar, check HgA1C Neurologic: PRN Ativan Affect: PRN ativan Prophylaxis: Protonix Time Spent (Minutes): 40 Notes Reviewed: hot frame tender, cardio Discussed with: nurses, mental health case managercytogenetics laboratory manager - Objective Last 24 Hour Vital Signs Date Time Temp Pulse Resp B/P (MAP) Pulse Ox O2 Delivery O2 Flow Rate FiO2 02/19/18 12:00 99.0 124 17 124/80 100 Mechanical Ventilator 35 99.0 02/19/18 12:00 35 02/19/18 11:51 135 02/19/18 11:18 100.1 02/19/18 11:13 140 36 35 02/19/18 08:50 115 22 35 02/19/18 08:04 98.2 116 28 121/85 100 Mechanical Ventilator 35 98.2 02/19/18 08:00 115 02/19/18 08:00 35 02/19/18 07:07 117 21 35 02/19/18 05:06 123 30 35 02/19/18 04:00 35 02/19/18 04:00 97.9 115 23 143/72 100 Mechanical Ventilator 35 97.9 02/19/18 03:30 118 02/19/18 02:58 121 27 35 02/19/18 01:11 129 33 35 02/19/18 00:00 35 02/19/18 00:00 98.2 118 24 140/75 96 Mechanical Ventilator 35 98.2 02/18/18 23:26 120 02/18/18 22:47 112 27 35 02/18/18 21:01 97 25 35 02/18/18 20:00 97.7 94 22 150/55 100 Mechanical Ventilator 35 97.7 02/18/18 20:00 35 02/18/18 19:34 95 02/18/18 19:18 92 20 35 02/18/18 17:14 106 25 35 02/18/18 16:00 35 02/18/18 16:00 98.9 102 17 119/67 99 Mechanical Ventilator 35 98.9 02/18/18 15:48 103 02/18/18 15:39 99.4 02/18/18 15:20 107 23 35 02/18/18 14:40 99.9 Status: awake Condition: critical HEENT: atraumatic Lungs: clear Heart: HR/BP stable, regular Abdomen: non-tender, feeding tube Extremities: no C/C/E Micro: Microbiology Date/Time Source Procedure Growth Status 02/17/18 03:30 Buttock Left Gram Stain - Final Resulted 02/17/18 03:30 Wound Culture - Preliminary Gram Negative Bacillus 1 Resulted Critical Care - Subjective ROS Limited/Unobtainable: No Condition: critical EKG Rhythm: V-Paced FI02: 35 Vent Support Breath Rate: 8 Vent Support Mode: IMV/SIMV Vent Tidal Volume: 600 Sputum Amount: Moderate PEEP: 5.0 PIP: 15 Tube Feeding Amount: 45 I&O: Intake and Output 02/18/18 02/19/18 18:59 06:59 Intake Total 860.0 ml 906.5 ml Output Total 250 ml 350 ml Balance 610.0 ml 556.5 ml Free Water 100 ml 130 ml IV Total 220.0 ml 281.5 ml Tube Feeding 540 ml 495 ml Output Urine Total 250 ml 350 ml # Bowel Movements 2 2 CXR: JENNIE Labs: Laboratory Tests Test 02/18/18 20:20 02/19/18 05:10 Vancomycin Level Trough 16.1 ug/mL (5.0-12.0) H White Blood Count 13.6 K/UL (4.8-10.8) #H Red Blood Count 3.57 M/UL (4.70-6.10) L Hemoglobin 10.2 G/DL (14.2-18.0) #L Hematocrit 32.7 % (42.0-52.0) L Mean Corpuscular Volume 91 FL (80-99) Mean Corpuscular Hemoglobin 28.6 PG (27.0-31.0) Mean Corpuscular Hemoglobin Concent 31.3 G/DL (32.0-36.0) L Red Cell Distribution Width 15.1 % (11.6-14.8) H Platelet Count 491 K/UL (150-450) H Mean Platelet Volume 6.1 FL (6.5-10.1) L Neutrophils (%) (Auto) 75.6 % (45.0-75.0) H Lymphocytes (%) (Auto) 13.8 % (20.0-45.0) L Monocytes (%) (Auto) 7.3 % (1.0-10.0) Eosinophils (%) (Auto) 2.8 % (0.0-3.0) Basophils (%) (Auto) 0.6 % (0.0-2.0) Prothrombin Time 11.4 SEC (9.30-11.50) Prothromb Time International Ratio 1.1 (0.9-1.1) Activated Partial Thromboplast Time 30 SEC (23-33) Sodium Level 150 MMOL/L (136-145) H Potassium Level 3.5 MMOL/L (3.5-5.1) Chloride Level 114 MMOL/L (98-107) H Carbon Dioxide Level 31 MMOL/L (21-32) Anion Gap 5 mmol/L (5-15) Blood Urea Nitrogen 20 mg/dL (7-18) H Creatinine 0.9 MG/DL (0.55-1.30) Estimat Glomerular Filtration Rate > 60 mL/min (>60) Glucose Level 114 MG/DL (74-106) H Calcium Level 9.2 MG/DL (8.5-10.1) Phosphorus Level 2.5 MG/DL (2.5-4.9) Magnesium Level 2.0 MG/DL (1.8-2.4) Total Bilirubin 0.3 MG/DL (0.2-1.0) Aspartate Amino Transf (AST/SGOT) 50 U/L (15-37) H Alanine Aminotransferase (ALT/SGPT) 118 U/L (12-78) H Alkaline Phosphatase 155 U/L (46-116) H Total Protein 8.0 G/DL (6.4-8.2) Albumin 1.7 G/DL (3.4-5.0) L Globulin 6.3 g/dL Albumin/Globulin Ratio 0.3 (1.0-2.7) L Shani Moses MD Feb 19, 2018 12:41
[2018-02-19 16:00] VITALS: BP 136/69
[2018-02-19 20:00] VITALS: BP 99/56
[2018-02-20] VITALS: BP 116/63
--- NOTE | 2018-02-20 00:49 | General Progress Note ---
Assessment/Plan Assessment/Plan #. Anemia due to underlying chronic disease. --> Hemoglobin goal is above 7. --> Anemia workup has been ordered. Continue to closely monitor. --> It appears to be anemia secondary to chronic disease. --> The patient is currently debilitated, bedbound status. #. Leukocytosis, likely secondary to infectious process from before, currently getting antibiotic vancomycin. #. Multiple infected decubitus ulceration, rule out osteomyelitis. #. Sepsis, currently being treated. #. Chronic vent-dependant respiratory failure. #. Dysphagia, status post percutaneous endoscopic gastrostomy. #. Generalized weakness and anemia. Subjective Date patient seen: Feb 19, 2018 Constitutional: Denies: no symptoms, chills, diaphoresis, fever, malaise, weakness, other HEENT: Denies: no symptoms, eye pain, blurred vision, tearing, double vision, ear pain, ear discharge, nose pain, nose congestion, throat pain, throat swelling, mouth pain, mouth swelling, other Cardiovascular: Denies: no symptoms, chest pain, edema, irregular heart rate, lightheadedness, palpitations, syncope, other Respiratory: Denies: no symptoms, cough, orthopnea, shortness of breath, SOB with excertion, SOB at rest, sputum, stridor, wheezing, other Gastrointestinal/Abdominal: Denies: no symptoms, abdomen distended, abdominal pain, black stools, tarry stools, blood in stool, constipated, diarrhea, difficulty swallowing, nausea, poor appetite, poor fluid intake, rectal bleeding , vomiting, other Genitourinary: Denies: no symptoms, burning, discharge, frequency, flank pain, hematuria, incontinence, pain, urgency, other 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: Denies: no symptoms, anxiety, depressed, emotional problems, headache, numbness, paresthesia, pre-existing deficit, seizure, tingling, tremors, weakness, other Hematologic/Lymphatic: Reports: anemia Allergies: Coded Allergies: No Known Allergies (Unverified , 03/07/17) Subjective S/P prbc. No adverse events. Leukocytosis worsened from yesterday Objective Last 24 Hour Vital Signs Date Time Temp Pulse Resp B/P (MAP) Pulse Ox O2 Delivery O2 Flow Rate FiO2 02/20/18 00:00 98.1 115 20 116/63 100 Mechanical Ventilator 35 98.1 4/6/18 00:00 35 02/19/18 23:35 113 02/19/18 23:02 113 17 35 02/19/18 21:43 117 19 35 02/19/18 20:00 99.1 122 20 99/56 99 Mechanical Ventilator 35 99.1 02/19/18 20:00 35 02/19/18 19:19 116 02/19/18 19:02 108 16 35 02/19/18 17:00 118 19 35 02/19/18 16:00 98.4 84 14 136/69 100 Mechanical Ventilator 35 98.4 02/19/18 16:00 113 02/19/18 16:00 35 02/19/18 14:57 111 17 35 02/19/18 13:01 119 17 35 02/19/18 12:17 99.0 02/19/18 12:00 99.0 124 17 124/80 100 Mechanical Ventilator 35 99.0 02/19/18 12:00 35 02/19/18 11:51 135 02/19/18 11:18 100.1 02/19/18 11:13 140 36 35 02/19/18 08:50 115 22 35 02/19/18 08:04 98.2 116 28 121/85 100 Mechanical Ventilator 35 98.2 02/19/18 08:00 115 02/19/18 08:00 35 02/19/18 07:07 117 21 35 02/19/18 05:06 123 30 35 02/19/18 04:00 35 02/19/18 04:00 97.9 115 23 143/72 100 Mechanical Ventilator 35 97.9 02/19/18 03:30 118 02/19/18 02:58 121 27 35 02/19/18 01:11 129 33 35 Intake and Output 02/19/18 02/20/18 19:00 07:00 Intake Total 778.4 ml 278.6 ml Balance 778.4 ml 278.6 ml Free Water 50 ml IV Total 238.4 ml 48.6 ml Tube Feeding 540 ml 180 ml # Voids 1 # Bowel Movements 3 Laboratory Tests 02/19/18 05:10: White Blood Count 13.6#H, Red Blood Count 3.57L, Hemoglobin 10.2#L, Hematocrit 32.7L, Mean Corpuscular Volume 91, Mean Corpuscular Hemoglobin 28.6, Mean Corpuscular Hemoglobin Concent 31.3L, Red Cell Distribution Width 15.1H, Platelet Count 491H, Mean Platelet Volume 6.1L, Neutrophils (%) (Auto) 75.6H, Lymphocytes (%) (Auto) 13.8L, Monocytes (%) (Auto) 7.3, Eosinophils (%) (Auto) 2.8, Basophils (%) (Auto) 0.6, Prothrombin Time 11.4, Prothromb Time International Ratio 1.1, Activated Partial Thromboplast Time 30, Sodium Level 150H, Potassium Level 3.5, Chloride Level 114H, Carbon Dioxide Level 31, Anion Gap 5, Blood Urea Nitrogen 20H, Creatinine 0.9, Estimat Glomerular Filtration Rate > 60, Glucose Level 114H, Calcium Level 9.2, Phosphorus Level 2.5, Magnesium Level 2.0, Total Bilirubin 0.3, Aspartate Amino Transf (AST/SGOT) 50H , Alanine Aminotransferase (ALT/SGPT) 118H, Alkaline Phosphatase 155H, Total Protein 8.0, Albumin 1.7L, Globulin 6.3, Albumin/Globulin Ratio 0.3L Height (Feet): 5 Height (Inches): 11.00 Weight (Pounds): 131 General Appearance: no apparent distress Respiratory/Chest: lungs clear Abdomen: soft Venancio James MD Feb 20, 2018 00:49
[2018-02-20] MEDS: Vancomycin 500mg/D5W 110ml IVPB SCH ×4 (03:13→14:55)
[2018-02-20 04:00] VITALS: BP 91/46
[2018-02-20 04:52] LABS: BASOPHILS % (AUTO) 0.4 % (0.0-2.0); EOSINOPHILS % (AUTO) 3.8 % (0.0-3.0); HEMATOCRIT 31.2 % (42.0-52.0); HEMOGLOBIN 9.8 G/DL (14.2-18.0); MEAN CORPUSCULAR VOLUME 93 FL (80-99); MONOCYTES % (AUTO) 9.1 % (1.0-10.0); NEUTROPHILS % (AUTO) 69.7 % (45.0-75.0); PLATELET COUNT 529 K/UL (150-450); RED BLOOD COUNT 3.36 M/UL (4.70-6.10); WHITE BLOOD COUNT 10.4 K/UL (4.8-10.8)
[2018-02-20 05:31] LABS: ALANINE AMINOTRANSFERASE 87 U/L (12-78); ALBUMIN 1.6 G/DL (3.4-5.0); ALBUMIN/GLOBULIN RATIO 0.3 (1.0-2.7); ALKALINE PHOSPHATASE 143 U/L (46-116); ANION GAP 5 mmol/L (5-15); ASPARTATE AMINO TRANSFERASE 31 U/L (15-37); BILIRUBIN,TOTAL 0.2 MG/DL (0.2-1.0); BLOOD UREA NITROGEN 21 mg/dL (7-18); CALCIUM 8.9 MG/DL (8.5-10.1); CARBON DIOXIDE 30 MMOL/L (21-32); CHLORIDE 118 MMOL/L (98-107); CREATININE 0.9 MG/DL (0.55-1.30); PHOSPHORUS 2.8 MG/DL (2.5-4.9); POTASSIUM 3.9 MMOL/L (3.5-5.1); SODIUM 153 MMOL/L (136-145)
[2018-02-20] MEDS: Piperacillin/Tazobactam 3.375 GM in NS 110 ML IVPB SCH ×2 (06:15→16:30)
[2018-02-20 08:00] VITALS: BP 89/50
[2018-02-20] MEDS: Pantoprazole Inj IV SCH (08:54)
[2018-02-20] MEDS: Heparin 5000 units/ml inj SUBQ SCH ×2 (08:56→21:50)
[2018-02-20 12:00] VITALS: BP 103/69
--- NOTE | 2018-02-20 12:34 | Pulmonolgy Critical Care Note ---
Critical Care - Asmt/Plan Problems: (1) Chronic respiratory failure (2) Anemia (3) Atrial fibrillation (4) EF of 30 (5) Feeding by G-tube (6) Tracheostomy care (7) Transaminitis Respiratory: monitor respiratory rate, adjust FIO2, CXR Cardiac: stop pressors, d/c advanced manufacturing vice president Infectious Disease: check cultures, continue antibiotics Gastrointestinal: continue feedings/current rate Endocrine: check TSH, continue sliding scale insulin Hematologic: monitor H/H, transfuse if hgb<8.5 Neurologic: PRN Ativan, PRN Morphine, keep patient comfortable Affect: PRN ativan Prophylaxis: Protonix Notes Reviewed: cardio, renal Discussed with: director of caseworkcustomer manager - Objective Last 24 Hour Vital Signs Date Time Temp Pulse Resp B/P (MAP) Pulse Ox O2 Delivery O2 Flow Rate FiO2 02/20/18 11:22 112 18 35 02/20/18 09:28 60 15 35 02/20/18 08:00 98.8 107 20 89/50 100 Mechanical Ventilator 35 98.8 02/20/18 08:00 109 02/20/18 08:00 35 02/20/18 06:50 107 19 35 02/20/18 05:20 101 20 35 02/20/18 04:00 35 02/20/18 04:00 98.1 106 20 91/46 100 Mechanical Ventilator 35 98.1 02/20/18 03:53 105 02/20/18 03:45 106 19 35 02/20/18 01:33 108 19 35 02/20/18 00:00 98.1 115 20 116/63 100 Mechanical Ventilator 35 98.1 02/20/18 00:00 35 02/19/18 23:35 113 02/19/18 23:02 113 17 35 02/19/18 21:43 117 19 35 02/19/18 20:00 99.1 122 20 99/56 99 Mechanical Ventilator 35 99.1 02/19/18 20:00 35 02/19/18 19:19 116 02/19/18 19:02 108 16 35 02/19/18 17:00 118 19 35 02/19/18 16:00 98.4 84 14 136/69 100 Mechanical Ventilator 35 98.4 02/19/18 16:00 113 02/19/18 16:00 35 02/19/18 14:57 111 17 35 02/19/18 13:01 119 17 35 Status: awake Condition: critical Neck: full ROM Lungs: clear Heart: regular Abdomen: non-tender, feeding tube Extremities: edema Decubiti: location Critical Care - Subjective ROS Limited/Unobtainable: No Condition: critical EKG Rhythm: Sinus Rhythm FI02: 35 Vent Support Breath Rate: 8 Vent Support Mode: IMV/SIMV Vent Tidal Volume: 600 Sputum Amount: Small PEEP: 5.0 PIP: 14 Tube Feeding Amount: 45 I&O: Intake and Output 02/19/18 02/20/18 19:00 07:00 Intake Total 778.4 ml 805.6 ml Output Total 400 ml Balance 778.4 ml 405.6 ml Free Water 70 ml IV Total 238.4 ml 240.6 ml Tube Feeding 540 ml 495 ml Output Urine Total 400 ml # Voids 1 # Bowel Movements 3 CXR: no change Labs: Laboratory Tests Test 02/20/18 03:40 White Blood Count 10.4 K/UL (4.8-10.8) Red Blood Count 3.36 M/UL (4.70-6.10) L Hemoglobin 9.8 G/DL (14.2-18.0) L Hematocrit 31.2 % (42.0-52.0) L Mean Corpuscular Volume 93 FL (80-99) Mean Corpuscular Hemoglobin 29.0 PG (27.0-31.0) Mean Corpuscular Hemoglobin Concent 31.3 G/DL (32.0-36.0) L Red Cell Distribution Width 15.0 % (11.6-14.8) H Platelet Count 529 K/UL (150-450) H Mean Platelet Volume 7.0 FL (6.5-10.1) Neutrophils (%) (Auto) 69.7 % (45.0-75.0) Lymphocytes (%) (Auto) 17.0 % (20.0-45.0) L Monocytes (%) (Auto) 9.1 % (1.0-10.0) Eosinophils (%) (Auto) 3.8 % (0.0-3.0) H Basophils (%) (Auto) 0.4 % (0.0-2.0) Sodium Level 153 MMOL/L (136-145) H Potassium Level 3.9 MMOL/L (3.5-5.1) Chloride Level 118 MMOL/L (98-107) H Carbon Dioxide Level 30 MMOL/L (21-32) Anion Gap 5 mmol/L (5-15) Blood Urea Nitrogen 21 mg/dL (7-18) H Creatinine 0.9 MG/DL (0.55-1.30) Estimat Glomerular Filtration Rate > 60 mL/min (>60) Glucose Level 116 MG/DL (74-106) H Calcium Level 8.9 MG/DL (8.5-10.1) Phosphorus Level 2.8 MG/DL (2.5-4.9) Magnesium Level 2.1 MG/DL (1.8-2.4) Total Bilirubin 0.2 MG/DL (0.2-1.0) Aspartate Amino Transf (AST/SGOT) 31 U/L (15-37) Alanine Aminotransferase (ALT/SGPT) 87 U/L (12-78) H Alkaline Phosphatase 143 U/L (46-116) H Total Protein 7.6 G/DL (6.4-8.2) Albumin 1.6 G/DL (3.4-5.0) L Globulin 6.0 g/dL Albumin/Globulin Ratio 0.3 (1.0-2.7) L Shani Moses MD Feb 20, 2018 12:34
--- NOTE | 2018-02-20 12:42 | Wound Nurse Progress Note ---
Wound RN Progress Note Wound Consult Pt is under the care of Derek Monroe. Please follow MD's order. No recommendation at this time. KENN GARCE RN Feb 20, 2018 12:42
[2018-02-20 16:00] VITALS: BP 128/68
[2018-02-20 20:00] VITALS: BP 113/68
--- NOTE | 2018-02-20 21:14 | Infectious Diseases Prog Note ---
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 ( due to contracted Ext. ) Purulent discharge from left hip. Rule out bacteremia. Ch transaminitis Hep C Ab + US : no sig findings SP Staph bacteremia, ( SP 4 wks AB rx ) Hx of Pseudomonas urinary tract infection. VDRF Status post trach and percutaneous endoscopic gastrostomy. Dementia Seizure disorder. History of pacemaker placement. Hypertension. COPD. Diabetes. PLAN: Cont pt on IV Merrem d# 1 and DC vancomycin and Zosyn d#3 Monitor CBC Monitor BMP. Monitor cultures (blood ) Monitor chest x-ray. Continue vent support. Hep C up w as out pt Subjective Allergies: Coded Allergies: No Known Allergies (Unverified , 03/07/17) Subjective low grade fever Objective Vital Signs Last 24 Hour Vital Signs Date Time Temp Pulse Resp B/P (MAP) Pulse Ox O2 Delivery O2 Flow Rate FiO2 02/20/18 20:48 114 19 35 02/20/18 20:00 35 02/20/18 20:00 98.5 108 17 113/68 100 Mechanical Ventilator 35 98.5 02/20/18 19:32 118 02/20/18 19:03 116 28 35 02/20/18 16:51 124 25 35 02/20/18 16:00 98.6 109 18 128/68 100 Mechanical Ventilator 35 98.6 02/20/18 16:00 35 02/20/18 16:00 109 02/20/18 15:19 110 19 35 02/20/18 13:29 111 19 35 02/20/18 12:00 113 02/20/18 12:00 35 02/20/18 12:00 98.2 110 22 103/69 100 Mechanical Ventilator 35 98.2 02/20/18 11:22 112 18 35 02/20/18 09:28 60 15 35 02/20/18 08:00 98.8 107 20 89/50 100 Mechanical Ventilator 35 98.8 02/20/18 08:00 109 02/20/18 08:00 35 02/20/18 06:50 107 19 35 02/20/18 05:20 101 20 35 02/20/18 04:00 35 02/20/18 04:00 98.1 106 20 91/46 100 Mechanical Ventilator 35 98.1 02/20/18 03:53 105 02/20/18 03:45 106 19 35 02/20/18 01:33 108 19 35 02/20/18 00:00 98.1 115 20 116/63 100 Mechanical Ventilator 35 98.1 02/20/18 00:00 35 02/19/18 23:35 113 02/19/18 23:02 113 17 35 02/19/18 21:43 117 19 35 Height (Feet): 5 Height (Inches): 11.00 Weight (Pounds): 147 HEENT: anicteric Respiratory/Chest: no respiratory distress Cardiovascular: regular rhythm Abdomen: no organomegaly Laboratory Tests Test 02/20/18 03:40 White Blood Count 10.4 K/UL (4.8-10.8) Red Blood Count 3.36 M/UL (4.70-6.10) L Hemoglobin 9.8 G/DL (14.2-18.0) L Hematocrit 31.2 % (42.0-52.0) L Mean Corpuscular Volume 93 FL (80-99) Mean Corpuscular Hemoglobin 29.0 PG (27.0-31.0) Mean Corpuscular Hemoglobin Concent 31.3 G/DL (32.0-36.0) L Red Cell Distribution Width 15.0 % (11.6-14.8) H Platelet Count 529 K/UL (150-450) H Mean Platelet Volume 7.0 FL (6.5-10.1) Neutrophils (%) (Auto) 69.7 % (45.0-75.0) Lymphocytes (%) (Auto) 17.0 % (20.0-45.0) L Monocytes (%) (Auto) 9.1 % (1.0-10.0) Eosinophils (%) (Auto) 3.8 % (0.0-3.0) H Basophils (%) (Auto) 0.4 % (0.0-2.0) Sodium Level 153 MMOL/L (136-145) H Potassium Level 3.9 MMOL/L (3.5-5.1) Chloride Level 118 MMOL/L (98-107) H Carbon Dioxide Level 30 MMOL/L (21-32) Anion Gap 5 mmol/L (5-15) Blood Urea Nitrogen 21 mg/dL (7-18) H Creatinine 0.9 MG/DL (0.55-1.30) Estimat Glomerular Filtration Rate > 60 mL/min (>60) Glucose Level 116 MG/DL (74-106) H Calcium Level 8.9 MG/DL (8.5-10.1) Phosphorus Level 2.8 MG/DL (2.5-4.9) Magnesium Level 2.1 MG/DL (1.8-2.4) Total Bilirubin 0.2 MG/DL (0.2-1.0) Aspartate Amino Transf (AST/SGOT) 31 U/L (15-37) Alanine Aminotransferase (ALT/SGPT) 87 U/L (12-78) H Alkaline Phosphatase 143 U/L (46-116) H Total Protein 7.6 G/DL (6.4-8.2) Albumin 1.6 G/DL (3.4-5.0) L Globulin 6.0 g/dL Albumin/Globulin Ratio 0.3 (1.0-2.7) L Current Medications Medications (Trade) Dose Ordered Sig/Tameka Route PRN Reason Start Time Stop Time Status Last Admin Dose Admin Acetaminophen (Tylenol) 650 mg Q4H PRN ORAL FEVER 02/16/18 23:15 03/18/18 23:14 02/19/18 11:18 Albuterol/ Ipratropium (Albuterol/ Ipratropium) 3 ml EVERY 4 HOURS PRN HHN Shortness of Breath 02/16/18 23:15 02/21/18 23:14 Dextrose (Dextrose 50%) 25 ml STAT PRN IV HYPOGLYCEMIA 02/18/18 08:45 03/20/18 08:44 Dextrose (Dextrose 50%) 50 ml STAT PRN IV Hypoglycemia 02/18/18 08:45 03/18/18 23:14 Heparin Sodium (Porcine) (Heparin 5000 units/ml) 5,000 units EVERY 12 HOURS SUBQ 02/17/18 09:00 03/19/18 08:59 02/20/18 08:56 Lorazepam (Ativan 2mg/ml 1ml) 2 mg EVERY 2 HOURS PRN IV For Anxiety 02/16/18 23:15 02/23/18 23:14 Morphine Sulfate (Morphine Sulfate) 4 mg EVERY 4 HOURS PRN IVP Severe Pain (Pain Scale 7-10) 02/16/18 23:15 02/23/18 23:14 02/19/18 21:33 Ondansetron HCl (Zofran) 4 mg Q6H PRN IVP Nausea & Vomiting 02/16/18 23:15 03/18/18 23:14 Pantoprazole (Protonix) 40 mg DAILY IV 02/17/18 09:00 03/19/18 08:59 02/20/18 08:54 Piperacillin Sod/ Tazobactam Sod 3.375 gm/Sodium Chloride 110 ml @ 27.5 mls/hr Q8HR IVPB 02/17/18 14:30 02/24/18 14:29 02/20/18 16:30 Polyethylene Glycol (Miralax) 17 gm DAILYPRN PRN ORAL Constipation 02/16/18 23:15 03/18/18 23:14 Vancomycin HCl (Vanco rx to dose) 1 ea DAILY PRN MISC . 02/17/18 08:30 03/19/18 08:29 Vancomycin HCl 500 mg/Dextrose 110 ml @ 110 mls/hr Q12H IVPB 02/19/18 03:00 02/24/18 02:59 02/20/18 14:55 Jake Naqvi MD Feb 20, 2018 21:14
[2018-02-20] MEDS: Meropenem 1 GM in NS 110 ML IVPB SCH (21:49)
[2018-02-21] VITALS: BP 134/72
--- NOTE | 2018-02-21 01:29 | General Progress Note ---
Assessment/Plan Assessment/Plan #. Anemia due to underlying chronic disease. --> Hemoglobin goal is above 7. --> Anemia workup has been ordered. Continue to closely monitor. --> It appears to be anemia secondary to chronic disease. --> The patient is currently debilitated, bedbound status. --> Hemoglobin levels have been stable. #. Leukocytosis, likely secondary to infectious process from before, --> currently getting antibiotic vancomycin. --> Wbc count downtrended and improved. #. Multiple infected decubitus ulceration, rule out osteomyelitis. #. Sepsis, currently being treated. #. Chronic vent-dependant respiratory failure. #. Dysphagia, status post percutaneous endoscopic gastrostomy. #. Generalized weakness and anemia. Subjective Date patient seen: Feb 20, 2018 Constitutional: Denies: no symptoms, chills, diaphoresis, fever, malaise, weakness, other HEENT: Denies: no symptoms, eye pain, blurred vision, tearing, double vision, ear pain, ear discharge, nose pain, nose congestion, throat pain, throat swelling, mouth pain, mouth swelling, other Cardiovascular: Denies: no symptoms, chest pain, edema, irregular heart rate, lightheadedness, palpitations, syncope, other Respiratory: Denies: no symptoms, cough, orthopnea, shortness of breath, SOB with excertion, SOB at rest, sputum, stridor, wheezing, other Gastrointestinal/Abdominal: Denies: no symptoms, abdomen distended, abdominal pain, black stools, tarry stools, blood in stool, constipated, diarrhea, difficulty swallowing, nausea, poor appetite, poor fluid intake, rectal bleeding , vomiting, other Genitourinary: Denies: no symptoms, burning, discharge, frequency, flank pain, hematuria, incontinence, pain, urgency, other 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: Denies: no symptoms, anxiety, depressed, emotional problems, headache, numbness, paresthesia, pre-existing deficit, seizure, tingling, tremors, weakness, other Hematologic/Lymphatic: Reports: anemia Allergies: Coded Allergies: No Known Allergies (Unverified , 03/07/17) Subjective Nonverbal. Wbc count downtrended. H/H stable. Objective Last 24 Hour Vital Signs Date Time Temp Pulse Resp B/P (MAP) Pulse Ox O2 Delivery O2 Flow Rate FiO2 02/21/18 01:02 110 25 35 02/20/18 23:32 110 02/20/18 22:56 106 18 35 02/20/18 20:48 114 19 35 02/20/18 20:00 35 02/20/18 20:00 98.5 108 17 113/68 100 Mechanical Ventilator 35 98.5 02/20/18 19:32 118 02/20/18 19:03 116 28 35 02/20/18 16:51 124 25 35 02/20/18 16:00 98.6 109 18 128/68 100 Mechanical Ventilator 35 98.6 02/20/18 16:00 35 02/20/18 16:00 109 02/20/18 15:19 110 19 35 02/20/18 13:29 111 19 35 02/20/18 12:00 113 02/20/18 12:00 35 02/20/18 12:00 98.2 110 22 103/69 100 Mechanical Ventilator 35 98.2 02/20/18 11:22 112 18 35 02/20/18 09:28 60 15 35 02/20/18 08:00 98.8 107 20 89/50 100 Mechanical Ventilator 35 98.8 02/20/18 08:00 109 02/20/18 08:00 35 02/20/18 06:50 107 19 35 02/20/18 05:20 101 20 35 02/20/18 04:00 35 02/20/18 04:00 98.1 106 20 91/46 100 Mechanical Ventilator 35 98.1 02/20/18 03:53 105 02/20/18 03:45 106 19 35 02/20/18 01:33 108 19 35 Intake and Output 02/20/18 02/21/18 19:00 07:00 Intake Total 842.5 ml 137.5 ml Output Total 100 ml Balance 742.5 ml 137.5 ml Free Water 100 ml IV Total 247.5 ml 137.5 ml Tube Feeding 495 ml Output Urine Total 100 ml Laboratory Tests 02/20/18 03:40: White Blood Count 10.4, Red Blood Count 3.36L, Hemoglobin 9.8L, Hematocrit 31.2L , Mean Corpuscular Volume 93, Mean Corpuscular Hemoglobin 29.0, Mean Corpuscular Hemoglobin Concent 31.3L, Red Cell Distribution Width 15.0H, Platelet Count 529H, Mean Platelet Volume 7.0, Neutrophils (%) (Auto) 69.7, Lymphocytes (%) (Auto) 17.0L, Monocytes (%) (Auto) 9.1, Eosinophils (%) (Auto) 3.8H, Basophils (%) (Auto) 0.4, Sodium Level 153H, Potassium Level 3.9, Chloride Level 118H, Carbon Dioxide Level 30, Anion Gap 5, Blood Urea Nitrogen 21H, Creatinine 0.9, Estimat Glomerular Filtration Rate > 60, Glucose Level 116H , Calcium Level 8.9, Phosphorus Level 2.8, Magnesium Level 2.1, Total Bilirubin 0.2, Aspartate Amino Transf (AST/SGOT) 31, Alanine Aminotransferase (ALT/SGPT) 87H, Alkaline Phosphatase 143H, Total Protein 7.6, Albumin 1.6L, Globulin 6.0, Albumin/Globulin Ratio 0.3L Height (Feet): 5 Height (Inches): 11.00 Weight (Pounds): 147 General Appearance: no apparent distress Respiratory/Chest: decreased breath sounds Abdomen: soft Venancio James MD Feb 21, 2018 01:29
[2018-02-21 04:00] VITALS: BP 120/67
[2018-02-21 05:43] LABS: ALANINE AMINOTRANSFERASE 108 U/L (12-78); ALBUMIN 1.6 G/DL (3.4-5.0); ALBUMIN/GLOBULIN RATIO 0.3 (1.0-2.7); ALKALINE PHOSPHATASE 141 U/L (46-116); ANION GAP 5 mmol/L (5-15); ASPARTATE AMINO TRANSFERASE 76 U/L (15-37); BILIRUBIN,TOTAL 0.2 MG/DL (0.2-1.0); BLOOD UREA NITROGEN 21 mg/dL (7-18); CALCIUM 8.8 MG/DL (8.5-10.1); CARBON DIOXIDE 31 MMOL/L (21-32); CHLORIDE 119 MMOL/L (98-107); CREATININE 0.9 MG/DL (0.55-1.30); PHOSPHORUS 2.4 MG/DL (2.5-4.9); POTASSIUM 3.8 MMOL/L (3.5-5.1); SODIUM 155 MMOL/L (136-145)
[2018-02-21 05:54] LABS: BASOPHILS % (AUTO) 0.4 % (0.0-2.0); EOSINOPHILS % (AUTO) 3.5 % (0.0-3.0); HEMATOCRIT 31.5 % (42.0-52.0); HEMOGLOBIN 10.2 G/DL (14.2-18.0); LYMPHOCYTES % (AUTO) 19.2 % (20.0-45.0); MEAN CORPUSCULAR VOLUME 94 FL (80-99); MONOCYTES % (AUTO) 9.4 % (1.0-10.0); NEUTROPHILS % (AUTO) 67.5 % (45.0-75.0); PLATELET COUNT 540 K/UL (150-450); RED BLOOD COUNT 3.37 M/UL (4.70-6.10); RED CELL DISTRIBUTION WIDTH 15.3 % (11.6-14.8); WHITE BLOOD COUNT 11.2 K/UL (4.8-10.8)
[2018-02-21] MEDS: Meropenem 1 GM in NS 110 ML IVPB SCH ×3 (06:10→22:00)
[2018-02-21] MEDS: Morphine Sulfate 4mg/ml Inj IVP PRN ×2 (06:59→13:49)
[2018-02-21 08:00] VITALS: BP 124/77
[2018-02-21] MEDS: Pantoprazole Inj IV SCH (10:34)
[2018-02-21] MEDS: Heparin 5000 units/ml inj SUBQ SCH ×2 (10:37→20:56)
[2018-02-21] MEDS: levETIRAcetam 500mg/5ml Liquid GT SCH ×2 (11:03→20:56)
[2018-02-21 12:00] VITALS: BP 102/62
[2018-02-21 16:30] VITALS: BP 127/78
[2018-02-21 20:00] VITALS: BP 128/77
[2018-02-22] VITALS: BP 140/79
--- NOTE | 2018-02-22 00:22 | General Progress Note ---
Assessment/Plan Assessment/Plan #. Anemia due to underlying chronic disease. --> Hemoglobin goal is above 7. --> Continue to closely monitor and trend cbc. --> It appears to be anemia secondary to chronic disease. --> The patient is currently debilitated, bedbound status. --> Hemoglobin levels have been stable. #. Leukocytosis, likely secondary to infectious process from before, --> currently getting antibiotic vancomycin. --> Wbc count downtrended and improved. #. Multiple infected decubitus ulceration, rule out osteomyelitis. #. Sepsis, currently being treated. #. Chronic vent-dependant respiratory failure. #. Dysphagia, status post percutaneous endoscopic gastrostomy. #. Generalized weakness and anemia. Subjective Date patient seen: Feb 21, 2018 Constitutional: Denies: no symptoms, chills, diaphoresis, fever, malaise, weakness, other HEENT: Denies: no symptoms, eye pain, blurred vision, tearing, double vision, ear pain, ear discharge, nose pain, nose congestion, throat pain, throat swelling, mouth pain, mouth swelling, other Cardiovascular: Denies: no symptoms, chest pain, edema, irregular heart rate, lightheadedness, palpitations, syncope, other Respiratory: Denies: no symptoms, cough, orthopnea, shortness of breath, SOB with excertion, SOB at rest, sputum, stridor, wheezing, other Gastrointestinal/Abdominal: Denies: no symptoms, abdomen distended, abdominal pain, black stools, tarry stools, blood in stool, constipated, diarrhea, difficulty swallowing, nausea, poor appetite, poor fluid intake, rectal bleeding , vomiting, other Genitourinary: Denies: no symptoms, burning, discharge, frequency, flank pain, hematuria, incontinence, pain, urgency, other 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: Denies: no symptoms, anxiety, depressed, emotional problems, headache, numbness, paresthesia, pre-existing deficit, seizure, tingling, tremors, weakness, other Hematologic/Lymphatic: Reports: anemia Allergies: Coded Allergies: No Known Allergies (Unverified , 03/07/17) Subjective Nonverbal. On vent. NAD. Objective Last 24 Hour Vital Signs Date Time Temp Pulse Resp B/P (MAP) Pulse Ox O2 Delivery O2 Flow Rate FiO2 02/21/18 23:51 115 18 35 02/21/18 21:55 99.0 02/21/18 21:21 115 18 35 02/21/18 20:56 100.9 02/21/18 20:00 100.9 121 17 128/77 100 Mechanical Ventilator 35 100.9 02/21/18 20:00 35 02/21/18 19:44 117 18 35 02/21/18 19:25 118 02/21/18 17:43 99.7 02/21/18 17:12 119 18 35 02/21/18 16:30 99.7 124 24 127/78 100 Mechanical Ventilator 35 99.7 02/21/18 16:00 35 02/21/18 16:00 115 02/21/18 15:03 114 19 35 02/21/18 13:49 100.6 02/21/18 13:47 100.6 02/21/18 12:43 125 24 35 02/21/18 12:00 100.6 130 22 102/62 100 Mechanical Ventilator 35 100.6 02/21/18 12:00 35 02/21/18 11:37 133 02/21/18 10:57 127 21 35 02/21/18 08:41 131 22 35 02/21/18 08:00 99.9 122 22 124/77 99 Mechanical Ventilator 35 99.9 02/21/18 08:00 35 02/21/18 07:30 125 02/21/18 06:51 131 24 35 02/21/18 04:58 123 26 35 02/21/18 04:00 98.4 112 22 120/67 100 Mechanical Ventilator 35 98.4 02/21/18 04:00 35 02/21/18 04:00 113 02/21/18 03:05 112 23 35 02/21/18 01:02 110 25 35 Intake and Output 02/21/18 02/22/18 19:00 07:00 Intake Total 615 ml Balance 615 ml IV Total 110 ml Tube Feeding 495 ml Other 10 ml Laboratory Tests 02/21/18 03:45: White Blood Count 11.2H, Red Blood Count 3.37L, Hemoglobin 10.2L, Hematocrit 31.5L, Mean Corpuscular Volume 94, Mean Corpuscular Hemoglobin 30.2, Mean Corpuscular Hemoglobin Concent 32.3, Red Cell Distribution Width 15.3H, Platelet Count 540H, Mean Platelet Volume 6.4L, Neutrophils (%) (Auto) 67.5, Lymphocytes (%) (Auto) 19.2L, Monocytes (%) (Auto) 9.4, Eosinophils (%) (Auto) 3.5H, Basophils (%) (Auto) 0.4, Sodium Level 155H, Potassium Level 3.8, Chloride Level 119H, Carbon Dioxide Level 31, Anion Gap 5, Blood Urea Nitrogen 21H, Creatinine 0.9, Estimat Glomerular Filtration Rate > 60, Glucose Level 115H , Calcium Level 8.8, Phosphorus Level 2.4L, Magnesium Level 2.2, Total Bilirubin 0.2, Aspartate Amino Transf (AST/SGOT) 76H, Alanine Aminotransferase ( ALT/SGPT) 108H, Alkaline Phosphatase 141H, Total Protein 7.8, Albumin 1.6L, Globulin 6.2, Albumin/Globulin Ratio 0.3L Height (Feet): 5 Height (Inches): 11.00 Weight (Pounds): 134 General Appearance: no apparent distress Respiratory/Chest: decreased breath sounds Abdomen: soft Venancio James MD Feb 22, 2018 00:22
[2018-02-22] MEDS: Morphine Sulfate 4mg/ml Inj IVP PRN ×3 (02:51→18:00)
[2018-02-22 04:00] VITALS: BP 107/62
[2018-02-22 05:19] LABS: BASOPHILS % (AUTO) 0.5 % (0.0-2.0); EOSINOPHILS % (AUTO) 4.9 % (0.0-3.0); HEMATOCRIT 34.6 % (42.0-52.0); HEMOGLOBIN 10.3 G/DL (14.2-18.0); LYMPHOCYTES % (AUTO) 19.1 % (20.0-45.0); MEAN CORPUSCULAR VOLUME 95 FL (80-99); MONOCYTES % (AUTO) 7.4 % (1.0-10.0); NEUTROPHILS % (AUTO) 68.1 % (45.0-75.0); PLATELET COUNT 624 K/UL (150-450); RED BLOOD COUNT 3.63 M/UL (4.70-6.10); RED CELL DISTRIBUTION WIDTH 15.7 % (11.6-14.8); WHITE BLOOD COUNT 12.8 K/UL (4.8-10.8)
[2018-02-22 05:39] LABS: ALANINE AMINOTRANSFERASE 136 U/L (12-78); ALBUMIN 1.7 G/DL (3.4-5.0); ALBUMIN/GLOBULIN RATIO 0.3 (1.0-2.7); ALKALINE PHOSPHATASE 147 U/L (46-116); ANION GAP 5 mmol/L (5-15); ASPARTATE AMINO TRANSFERASE 91 U/L (15-37); BILIRUBIN,TOTAL 0.2 MG/DL (0.2-1.0); BLOOD UREA NITROGEN 24 mg/dL (7-18); CALCIUM 9.3 MG/DL (8.5-10.1); CARBON DIOXIDE 32 MMOL/L (21-32); CHLORIDE 121 MMOL/L (98-107); PHOSPHORUS 2.7 MG/DL (2.5-4.9); SODIUM 158 MMOL/L (136-145)
[2018-02-22] MEDS: Meropenem 1 GM in NS 110 ML IVPB SCH ×3 (06:00→21:55)
[2018-02-22 08:00] VITALS: BP 119/77
[2018-02-22] MEDS: levETIRAcetam 500mg/5ml Liquid GT SCH ×2 (09:19→21:55)
[2018-02-22] MEDS: Pantoprazole Inj IV SCH (09:19)
[2018-02-22] MEDS: Heparin 5000 units/ml inj SUBQ SCH ×2 (09:21→21:56)
--- NOTE | 2018-02-22 10:05 | Pulmonolgy Critical Care Note ---
Critical Care - Asmt/Plan Problems: (1) Chronic respiratory failure (2) Anemia (3) Atrial fibrillation (4) EF of 30 (5) Feeding by G-tube (6) Tracheostomy care (7) Transaminitis Respiratory: monitor respiratory rate, adjust FIO2, CXR Cardiac: continue to monitor HR/BP Renal: F/U I&O Infectious Disease: check cultures, continue antibiotics Gastrointestinal: continue feedings/current rate Endocrine: monitor blood sugar, check TSH, continue sliding scale insulin Hematologic: monitor H/H, transfuse if hgb<8.5 Neurologic: PRN Morphine, keep patient comfortable Affect: PRN ativan Prophylaxis: Protonix, Heparin Notes Reviewed: cardio, renal Discussed with: nurses, consultants, piano case and bench assemblerbusiness insight and analytics manager - Objective Last 24 Hour Vital Signs Date Time Temp Pulse Resp B/P (MAP) Pulse Ox O2 Delivery O2 Flow Rate FiO2 02/22/18 09:22 100.8 02/22/18 08:44 121 19 35 02/22/18 08:00 100.8 116 16 119/77 100 Mechanical Ventilator 35 100.8 02/22/18 08:00 122 02/22/18 06:46 111 15 35 02/22/18 05:12 109 15 35 02/22/18 04:21 111 15 35 02/22/18 04:00 35 02/22/18 04:00 111 02/22/18 04:00 98.1 110 17 107/62 100 Mechanical Ventilator 35 98.1 02/22/18 03:21 99.0 02/22/18 02:51 99.0 02/22/18 01:07 101 15 35 02/22/18 00:00 35 02/22/18 00:00 112 02/22/18 00:00 99.0 106 17 140/79 100 Mechanical Ventilator 35 99.0 02/21/18 23:51 115 18 35 02/21/18 21:55 99.0 02/21/18 21:21 115 18 35 02/21/18 20:56 100.9 02/21/18 20:00 100.9 121 17 128/77 100 Mechanical Ventilator 35 100.9 02/21/18 20:00 35 02/21/18 19:44 117 18 35 02/21/18 19:25 118 02/21/18 17:12 119 18 35 02/21/18 16:30 99.7 124 24 127/78 100 Mechanical Ventilator 35 99.7 02/21/18 16:00 35 02/21/18 16:00 115 02/21/18 15:03 114 19 35 02/21/18 13:49 100.6 02/21/18 13:47 100.6 02/21/18 12:43 125 24 35 02/21/18 12:00 100.6 130 22 102/62 100 Mechanical Ventilator 35 100.6 02/21/18 12:00 35 02/21/18 11:37 133 02/21/18 10:57 127 21 35 Status: awake Condition: critical HEENT: atraumatic Neck: full ROM Lungs: chest wall tender Heart: HR/BP stable Abdomen: soft, active bowel sounds, feeding tube Decubiti: location Micro: Microbiology Date/Time Source Procedure Growth Status 02/19/18 12:35 Blood Blood Culture - Preliminary NO GROWTH AFTER 48 HOURS Resulted 02/19/18 12:30 Blood Blood Culture - Preliminary NO GROWTH AFTER 48 HOURS Resulted Critical Care - Subjective ROS Limited/Unobtainable: No Condition: critical EKG Rhythm: Sinus Rhythm FI02: 35 Vent Support Breath Rate: 8 Vent Support Mode: IMV/SIMV Vent Tidal Volume: 600 Sputum Amount: Moderate PEEP: 5.0 PIP: 22 Tube Feeding Amount: 45 I&O: Intake and Output 02/21/18 02/22/18 19:00 07:00 Intake Total 660 ml 1195 ml Output Total 300 ml Balance 660 ml 895 ml Free Water 200 ml IV Total 110 ml 440 ml Tube Feeding 540 ml 495 ml Other 10 ml 60 ml Output Urine Total 300 ml CXR: no change Labs: Laboratory Tests Test 02/22/18 03:35 White Blood Count 12.8 K/UL (4.8-10.8) H Red Blood Count 3.63 M/UL (4.70-6.10) L Hemoglobin 10.3 G/DL (14.2-18.0) L Hematocrit 34.6 % (42.0-52.0) L Mean Corpuscular Volume 95 FL (80-99) Mean Corpuscular Hemoglobin 28.5 PG (27.0-31.0) Mean Corpuscular Hemoglobin Concent 29.9 G/DL (32.0-36.0) L Red Cell Distribution Width 15.7 % (11.6-14.8) H Platelet Count 624 K/UL (150-450) H Mean Platelet Volume 6.3 FL (6.5-10.1) L Neutrophils (%) (Auto) 68.1 % (45.0-75.0) Lymphocytes (%) (Auto) 19.1 % (20.0-45.0) L Monocytes (%) (Auto) 7.4 % (1.0-10.0) Eosinophils (%) (Auto) 4.9 % (0.0-3.0) H Basophils (%) (Auto) 0.5 % (0.0-2.0) Sodium Level 158 MMOL/L (136-145) H Potassium Level 4.0 MMOL/L (3.5-5.1) Chloride Level 121 MMOL/L (98-107) H Carbon Dioxide Level 32 MMOL/L (21-32) Anion Gap 5 mmol/L (5-15) Blood Urea Nitrogen 24 mg/dL (7-18) H Creatinine 1.0 MG/DL (0.55-1.30) Estimat Glomerular Filtration Rate > 60 mL/min (>60) Glucose Level 109 MG/DL (74-106) H Calcium Level 9.3 MG/DL (8.5-10.1) Phosphorus Level 2.7 MG/DL (2.5-4.9) Magnesium Level 2.3 MG/DL (1.8-2.4) Total Bilirubin 0.2 MG/DL (0.2-1.0) Aspartate Amino Transf (AST/SGOT) 91 U/L (15-37) H Alanine Aminotransferase (ALT/SGPT) 136 U/L (12-78) H Alkaline Phosphatase 147 U/L (46-116) H Total Protein 8.2 G/DL (6.4-8.2) Albumin 1.7 G/DL (3.4-5.0) L Globulin 6.5 g/dL Albumin/Globulin Ratio 0.3 (1.0-2.7) L Shani Moses MD Feb 22, 2018 10:05
--- NOTE | 2018-02-22 10:06 | Pulmonolgy Critical Care Note ---
Critical Care - Asmt/Plan Problems: (1) Chronic respiratory failure (2) Anemia (3) Atrial fibrillation (4) EF of 30 (5) Feeding by G-tube (6) Tracheostomy care (7) Transaminitis Respiratory: monitor respiratory rate, adjust FIO2 Cardiac: continue to monitor HR/BP Renal: F/U I&O, keep IV fluid Infectious Disease: check cultures Gastrointestinal: continue feedings/current rate Endocrine: monitor blood sugar Hematologic: transfuse if hgb<8.5 Affect: PRN ativan Prophylaxis: Protonix, Heparin Notes Reviewed: dress cutter, renal Discussed with: consultants, case preparer and lineralterations manager - Objective Last 24 Hour Vital Signs Date Time Temp Pulse Resp B/P (MAP) Pulse Ox O2 Delivery O2 Flow Rate FiO2 02/22/18 09:22 100.8 02/22/18 08:44 121 19 35 02/22/18 08:00 100.8 116 16 119/77 100 Mechanical Ventilator 35 100.8 02/22/18 08:00 122 02/22/18 06:46 111 15 35 02/22/18 05:12 109 15 35 02/22/18 04:21 111 15 35 02/22/18 04:00 35 02/22/18 04:00 111 02/22/18 04:00 98.1 110 17 107/62 100 Mechanical Ventilator 35 98.1 02/22/18 03:21 99.0 02/22/18 02:51 99.0 02/22/18 01:07 101 15 35 02/22/18 00:00 35 02/22/18 00:00 112 02/22/18 00:00 99.0 106 17 140/79 100 Mechanical Ventilator 35 99.0 02/21/18 23:51 115 18 35 02/21/18 21:55 99.0 02/21/18 21:21 115 18 35 02/21/18 20:56 100.9 02/21/18 20:00 100.9 121 17 128/77 100 Mechanical Ventilator 35 100.9 02/21/18 20:00 35 02/21/18 19:44 117 18 35 02/21/18 19:25 118 02/21/18 17:12 119 18 35 02/21/18 16:30 99.7 124 24 127/78 100 Mechanical Ventilator 35 99.7 02/21/18 16:00 35 02/21/18 16:00 115 02/21/18 15:03 114 19 35 02/21/18 13:49 100.6 02/21/18 13:47 100.6 02/21/18 12:43 125 24 35 02/21/18 12:00 100.6 130 22 102/62 100 Mechanical Ventilator 35 100.6 02/21/18 12:00 35 02/21/18 11:37 133 02/21/18 10:57 127 21 35 Status: sedated Condition: critical HEENT: atraumatic Lungs: chest wall tender Heart: HR/BP unstable Abdomen: soft, non-tender, feeding tube Extremities: edema Decubiti: location Micro: Microbiology Date/Time Source Procedure Growth Status 02/19/18 12:35 Blood Blood Culture - Preliminary NO GROWTH AFTER 48 HOURS Resulted 02/19/18 12:30 Blood Blood Culture - Preliminary NO GROWTH AFTER 48 HOURS Resulted Critical Care - Subjective ROS Limited/Unobtainable: Yes Interval Events: late note for 02/21 Condition: critical FI02: 35 Vent Support Breath Rate: 8 Vent Support Mode: IMV/SIMV Vent Tidal Volume: 600 Sputum Amount: Moderate PEEP: 5.0 PIP: 22 Tube Feeding Amount: 45 I&O: Intake and Output 02/21/18 02/22/18 19:00 07:00 Intake Total 660 ml 1195 ml Output Total 300 ml Balance 660 ml 895 ml Free Water 200 ml IV Total 110 ml 440 ml Tube Feeding 540 ml 495 ml Other 10 ml 60 ml Output Urine Total 300 ml CXR: no Shani Rashid MD Feb 22, 2018 10:06
--- NOTE | 2018-02-22 10:24 | General Surgery Progress Note ---
General Surgery-Progress Note Subjective Additional Comments wounds evaluated at bedside. condom cath dislodged and urine around wounds. dressings saturated. Objective Last 24 Hour Vital Signs Date Time Temp Pulse Resp B/P (MAP) Pulse Ox O2 Delivery O2 Flow Rate FiO2 02/22/18 10:08 100.8 02/22/18 09:22 100.8 02/22/18 08:44 121 19 35 02/22/18 08:00 100.8 116 16 119/77 100 Mechanical Ventilator 35 100.8 02/22/18 08:00 122 02/22/18 06:46 111 15 35 02/22/18 05:12 109 15 35 02/22/18 04:21 111 15 35 02/22/18 04:00 35 02/22/18 04:00 111 02/22/18 04:00 98.1 110 17 107/62 100 Mechanical Ventilator 35 98.1 02/22/18 03:21 99.0 02/22/18 02:51 99.0 02/22/18 01:07 101 15 35 02/22/18 00:00 35 02/22/18 00:00 112 02/22/18 00:00 99.0 106 17 140/79 100 Mechanical Ventilator 35 99.0 02/21/18 23:51 115 18 35 02/21/18 21:55 99.0 02/21/18 21:21 115 18 35 02/21/18 20:56 100.9 02/21/18 20:00 100.9 121 17 128/77 100 Mechanical Ventilator 35 100.9 02/21/18 20:00 35 02/21/18 19:44 117 18 35 02/21/18 19:25 118 02/21/18 17:12 119 18 35 02/21/18 16:30 99.7 124 24 127/78 100 Mechanical Ventilator 35 99.7 02/21/18 16:00 35 02/21/18 16:00 115 02/21/18 15:03 114 19 35 02/21/18 13:49 100.6 02/21/18 13:47 100.6 02/21/18 12:43 125 24 35 02/21/18 12:00 100.6 130 22 102/62 100 Mechanical Ventilator 35 100.6 02/21/18 12:00 35 02/21/18 11:37 133 02/21/18 10:57 127 21 35 I&O Intake and Output 02/21/18 02/22/18 19:00 07:00 Intake Total 660 ml 1195 ml Output Total 300 ml Balance 660 ml 895 ml Free Water 200 ml IV Total 110 ml 440 ml Tube Feeding 540 ml 495 ml Other 10 ml 60 ml Output Urine Total 300 ml Dressing: saturated Wound: other - fibrinous debris in wounds requiring debridement Laboratory Tests Test 02/22/18 03:35 White Blood Count 12.8 K/UL (4.8-10.8) H Red Blood Count 3.63 M/UL (4.70-6.10) L Hemoglobin 10.3 G/DL (14.2-18.0) L Hematocrit 34.6 % (42.0-52.0) L Mean Corpuscular Volume 95 FL (80-99) Mean Corpuscular Hemoglobin 28.5 PG (27.0-31.0) Mean Corpuscular Hemoglobin Concent 29.9 G/DL (32.0-36.0) L Red Cell Distribution Width 15.7 % (11.6-14.8) H Platelet Count 624 K/UL (150-450) H Mean Platelet Volume 6.3 FL (6.5-10.1) L Neutrophils (%) (Auto) 68.1 % (45.0-75.0) Lymphocytes (%) (Auto) 19.1 % (20.0-45.0) L Monocytes (%) (Auto) 7.4 % (1.0-10.0) Eosinophils (%) (Auto) 4.9 % (0.0-3.0) H Basophils (%) (Auto) 0.5 % (0.0-2.0) Sodium Level 158 MMOL/L (136-145) H Potassium Level 4.0 MMOL/L (3.5-5.1) Chloride Level 121 MMOL/L (98-107) H Carbon Dioxide Level 32 MMOL/L (21-32) Anion Gap 5 mmol/L (5-15) Blood Urea Nitrogen 24 mg/dL (7-18) H Creatinine 1.0 MG/DL (0.55-1.30) Estimat Glomerular Filtration Rate > 60 mL/min (>60) Glucose Level 109 MG/DL (74-106) H Calcium Level 9.3 MG/DL (8.5-10.1) Phosphorus Level 2.7 MG/DL (2.5-4.9) Magnesium Level 2.3 MG/DL (1.8-2.4) Total Bilirubin 0.2 MG/DL (0.2-1.0) Aspartate Amino Transf (AST/SGOT) 91 U/L (15-37) H Alanine Aminotransferase (ALT/SGPT) 136 U/L (12-78) H Alkaline Phosphatase 147 U/L (46-116) H Total Protein 8.2 G/DL (6.4-8.2) Albumin 1.7 G/DL (3.4-5.0) L Globulin 6.5 g/dL Albumin/Globulin Ratio 0.3 (1.0-2.7) L Plan Problems: (1) Pressure ulcer, hip, left, unstageable Assessment & Plan: 58M with multiple large deep decubitus ulcers. very complex wounds in that patient has large decubitus ulcers on right hip, sacrum, left hip and in between. multiple, all deep, all with mild fibrinous debris, and drainage. fortunately drainage serous. likely chronically infected /colonized but no acute active severe infectious process noted. the left hip likely goes down to the bone. with such poor nutritional status from chronic illness will have very hard time healing any of these wounds. also with wounds in all directions very difficult to keep off wounds as he would need to. he is full care and requires assistance at all times. very complex difficult wounds to care for but will monitor with recs while in hospital. wounds cleaned at bedside and fibrinous debris from wound bed debrided to clean healthy tissue as possible. new dressings applied. -Abx -dressings TID. dry gauze for now while wound is so moist until good granulation tissue forms and fibrinous debris removed. -turn q2h -max nutritional needs. -family discussion for code status. thank you for this consultation. will follow with Derek Ervin Feb 22, 2018 10:24
[2018-02-22 12:00] VITALS: BP 116/72
--- NOTE | 2018-02-22 13:34 | Consultation ---
Consult Note Consult Note asked to eval for hypernatremia examined- data reviewed Assessment/Plan Hypernatremia due to free water deficit Pressure ulcer, hip, left, unstageable Hypo albuminemia other (1) Chronic respiratory failure (2) Anemia (3) Atrial fibrillation (4) EF of 30 % reported- related Echo not found (5) Feeding by G-tube (6) Tracheostomy care (7) Transaminitis Plan: D5w + Lasix monitor lytes recheck echo CRICKET MITCHELL Feb 22, 2018 13:34
--- NOTE | 2018-02-22 14:36 | Infectious Diseases Prog Note ---
Assessment/Plan Assessment/Plan ASSESSMENT: The patient is a 58-year-old male with, Mild leukocytosis, Fever low grade Sepsis Multiple infected lower extremity decubitus, WndC x: MDR Providencia (+ skin colonizer ) surg : does not recommend I/D due pt clinical condition Bone scan limited for eval of osteomyelitis. ( due to contracted Ext. ) Purulent discharge from left hip. Rule out bacteremia. Ch transaminitis Hep C Ab + US : no sig findings SP Staph bacteremia, ( SP 4 wks AB rx ) Hx of Pseudomonas urinary tract infection. VDRF Status post trach and percutaneous endoscopic gastrostomy. Dementia Seizure disorder. History of pacemaker placement. Hypertension. COPD. Diabetes. PLAN: Cont pt on IV Merrem d# 3 02/20 SP vancomycin and Zosyn d#3 Monitor CBC Monitor BMP. Monitor cultures (blood ) Monitor chest x-ray. Continue vent support. Hep C up w as out pt Subjective Constitutional: Denies: no symptoms, fever, chills, fatigue, anorexia, drenching sweats, other Allergies: Coded Allergies: No Known Allergies (Unverified , 03/07/17) Subjective low grade fever Objective Vital Signs Last 24 Hour Vital Signs Date Time Temp Pulse Resp B/P (MAP) Pulse Ox O2 Delivery O2 Flow Rate FiO2 02/22/18 13:00 114 15 35 02/22/18 12:14 98.4 02/22/18 12:11 100.8 02/22/18 12:00 98.4 114 18 116/72 98 Mechanical Ventilator 35 98.4 02/22/18 11:05 111 13 35 02/22/18 10:08 100.8 02/22/18 09:22 100.8 02/22/18 08:44 121 19 35 02/22/18 08:00 35 02/22/18 08:00 100.8 116 16 119/77 100 Mechanical Ventilator 35 100.8 02/22/18 08:00 122 02/22/18 06:46 111 15 35 02/22/18 05:12 109 15 35 02/22/18 04:21 111 15 35 02/22/18 04:00 35 02/22/18 04:00 111 02/22/18 04:00 98.1 110 17 107/62 100 Mechanical Ventilator 35 98.1 4/8/18 02:51 99.0 02/22/18 01:07 101 15 35 02/22/18 00:00 35 02/22/18 00:00 112 02/22/18 00:00 99.0 106 17 140/79 100 Mechanical Ventilator 35 99.0 02/21/18 23:51 115 18 35 02/21/18 21:21 115 18 35 02/21/18 20:56 100.9 02/21/18 20:00 100.9 121 17 128/77 100 Mechanical Ventilator 35 100.9 02/21/18 20:00 35 02/21/18 19:44 117 18 35 02/21/18 19:25 118 02/21/18 17:12 119 18 35 02/21/18 16:30 99.7 124 24 127/78 100 Mechanical Ventilator 35 99.7 02/21/18 16:00 35 02/21/18 16:00 115 02/21/18 15:03 114 19 35 Height (Feet): 5 Height (Inches): 11.00 Weight (Pounds): 137 HEENT: anicteric Respiratory/Chest: no accessory muscle use Cardiovascular: no gallop/murmur Laboratory Tests Test 02/22/18 03:35 White Blood Count 12.8 K/UL (4.8-10.8) H Red Blood Count 3.63 M/UL (4.70-6.10) L Hemoglobin 10.3 G/DL (14.2-18.0) L Hematocrit 34.6 % (42.0-52.0) L Mean Corpuscular Volume 95 FL (80-99) Mean Corpuscular Hemoglobin 28.5 PG (27.0-31.0) Mean Corpuscular Hemoglobin Concent 29.9 G/DL (32.0-36.0) L Red Cell Distribution Width 15.7 % (11.6-14.8) H Platelet Count 624 K/UL (150-450) H Mean Platelet Volume 6.3 FL (6.5-10.1) L Neutrophils (%) (Auto) 68.1 % (45.0-75.0) Lymphocytes (%) (Auto) 19.1 % (20.0-45.0) L Monocytes (%) (Auto) 7.4 % (1.0-10.0) Eosinophils (%) (Auto) 4.9 % (0.0-3.0) H Basophils (%) (Auto) 0.5 % (0.0-2.0) Sodium Level 158 MMOL/L (136-145) H Potassium Level 4.0 MMOL/L (3.5-5.1) Chloride Level 121 MMOL/L (98-107) H Carbon Dioxide Level 32 MMOL/L (21-32) Anion Gap 5 mmol/L (5-15) Blood Urea Nitrogen 24 mg/dL (7-18) H Creatinine 1.0 MG/DL (0.55-1.30) Estimat Glomerular Filtration Rate > 60 mL/min (>60) Glucose Level 109 MG/DL (74-106) H Calcium Level 9.3 MG/DL (8.5-10.1) Phosphorus Level 2.7 MG/DL (2.5-4.9) Magnesium Level 2.3 MG/DL (1.8-2.4) Total Bilirubin 0.2 MG/DL (0.2-1.0) Aspartate Amino Transf (AST/SGOT) 91 U/L (15-37) H Alanine Aminotransferase (ALT/SGPT) 136 U/L (12-78) H Alkaline Phosphatase 147 U/L (46-116) H Total Protein 8.2 G/DL (6.4-8.2) Albumin 1.7 G/DL (3.4-5.0) L Globulin 6.5 g/dL Albumin/Globulin Ratio 0.3 (1.0-2.7) L Current Medications Medications (Trade) Dose Ordered Sig/Tameka Route PRN Reason Start Time Stop Time Status Last Admin Dose Admin Acetaminophen (Tylenol) 650 mg Q4H PRN ORAL FEVER 02/16/18 23:15 03/18/18 23:14 02/22/18 09:22 Dextrose 550 ml @ 150 mls/hr Q3H40M IV 02/22/18 14:30 02/23/18 01:29 Dextrose (Dextrose 50%) 25 ml STAT PRN IV HYPOGLYCEMIA 02/18/18 08:45 03/20/18 08:44 Dextrose (Dextrose 50%) 50 ml STAT PRN IV Hypoglycemia 02/18/18 08:45 03/18/18 23:14 Furosemide (Lasix) 10 mg EVERY 6 HOURS IV 02/22/18 14:30 03/24/18 14:29 Heparin Sodium (Porcine) (Heparin 5000 units/ml) 5,000 units EVERY 12 HOURS SUBQ 02/17/18 09:00 03/19/18 08:59 02/22/18 09:21 Levetiracetam (Keppra) 500 mg Q12HR GT 02/21/18 11:00 03/23/18 10:59 02/22/18 09:19 Lorazepam (Ativan 2mg/ml 1ml) 2 mg EVERY 2 HOURS PRN IV For Anxiety 02/16/18 23:15 02/23/18 23:14 Meropenem 1 gm/ Sodium Chloride 110 ml @ 220 mls/hr Q8HR IVPB 02/20/18 22:00 02/25/18 21:59 02/22/18 06:00 Morphine Sulfate (Morphine Sulfate) 4 mg EVERY 4 HOURS PRN IVP Severe Pain (Pain Scale 7-10) 02/16/18 23:15 02/23/18 23:14 02/22/18 10:08 Ondansetron HCl (Zofran) 4 mg Q6H PRN IVP Nausea & Vomiting 02/16/18 23:15 03/18/18 23:14 Pantoprazole (Protonix) 40 mg DAILY IV 02/17/18 09:00 03/19/18 08:59 02/22/18 09:19 Polyethylene Glycol (Miralax) 17 gm DAILYPRN PRN ORAL Constipation 02/16/18 23:15 03/18/18 23:14 Jake Naqvi MD Feb 22, 2018 14:36
[2018-02-22] MEDS: D5W 500ml 550 ML IV SCH ×3 (14:43→21:56)
[2018-02-22 16:00] VITALS: BP 106/67
[2018-02-22 20:00] VITALS: BP 100/76
[2018-02-23] VITALS: BP 149/74
--- NOTE | 2018-02-23 01:04 | General Progress Note ---
Assessment/Plan Assessment/Plan #. Anemia due to underlying chronic disease. --> Hemoglobin goal is above 7. --> Continue to closely monitor and trend cbc. --> It appears to be anemia secondary to chronic disease. --> The patient is currently debilitated, bedbound status. --> Hemoglobin levels have been stable. #. Leukocytosis, likely secondary to infectious process from before, --> currently getting antibiotic vancomycin. --> Monitor for improvement. #. DVT Prophylaxis. --> On heparin #. Multiple infected decubitus ulceration, rule out osteomyelitis. #. Sepsis, currently being treated. #. Chronic vent-dependant respiratory failure. --> S/P tracheostomy #. Dysphagia, status post percutaneous endoscopic gastrostomy. #. Generalized weakness and anemia. #. Seizure disorder --> On keppra #. Atrial fibrillation. --> Hx of pacemaker placement. #. Hypertension. #. Encephalopathy. --> Pt with dementia Subjective Date patient seen: Feb 22, 2018 Constitutional: Denies: no symptoms, chills, diaphoresis, fever, malaise, weakness, other HEENT: Denies: no symptoms, eye pain, blurred vision, tearing, double vision, ear pain, ear discharge, nose pain, nose congestion, throat pain, throat swelling, mouth pain, mouth swelling, other Cardiovascular: Denies: no symptoms, chest pain, edema, irregular heart rate, lightheadedness, palpitations, syncope, other Respiratory: Denies: no symptoms, cough, orthopnea, shortness of breath, SOB with excertion, SOB at rest, sputum, stridor, wheezing, other Gastrointestinal/Abdominal: Denies: no symptoms, abdomen distended, abdominal pain, black stools, tarry stools, blood in stool, constipated, diarrhea, difficulty swallowing, nausea, poor appetite, poor fluid intake, rectal bleeding , vomiting, other Genitourinary: Denies: no symptoms, burning, discharge, frequency, flank pain, hematuria, incontinence, pain, urgency, other 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: Denies: no symptoms, anxiety, depressed, emotional problems, headache, numbness, paresthesia, pre-existing deficit, seizure, tingling, tremors, weakness, other Hematologic/Lymphatic: Reports: anemia Allergies: Coded Allergies: No Known Allergies (Unverified , 03/07/17) Subjective Confused. On vent. H/H stable. Objective Last 24 Hour Vital Signs Date Time Temp Pulse Resp B/P (MAP) Pulse Ox O2 Delivery O2 Flow Rate FiO2 02/22/18 23:51 108 02/22/18 22:59 111 15 35 02/22/18 21:12 102 16 35 02/22/18 20:00 97.5 108 12 100/76 99 Mechanical Ventilator 35 97.5 02/22/18 19:50 100.6 02/22/18 19:50 100.6 02/22/18 19:37 111 02/22/18 18:53 122 19 35 02/22/18 18:00 100.6 02/22/18 17:59 100.6 02/22/18 17:29 118 5 35 02/22/18 16:49 110 02/22/18 16:00 100.4 120 18 106/67 99 Mechanical Ventilator 35 100.4 02/22/18 16:00 35 02/22/18 14:46 110 21 35 02/22/18 13:00 114 15 35 02/22/18 12:00 35 02/22/18 12:00 98.4 114 18 116/72 98 Mechanical Ventilator 35 98.4 02/22/18 11:48 110 02/22/18 11:05 111 13 35 02/22/18 10:08 100.8 02/22/18 09:22 100.8 02/22/18 08:44 121 19 35 02/22/18 08:00 35 02/22/18 08:00 100.8 116 16 119/77 100 Mechanical Ventilator 35 100.8 02/22/18 08:00 122 02/22/18 06:46 111 15 35 02/22/18 05:12 109 15 35 02/22/18 04:21 111 15 35 02/22/18 04:00 35 02/22/18 04:00 111 02/22/18 04:00 98.1 110 17 107/62 100 Mechanical Ventilator 35 98.1 02/22/18 02:51 99.0 02/22/18 01:07 101 15 35 Intake and Output 02/22/18 02/23/18 19:00 07:00 Intake Total 1300 ml Output Total 500 ml Balance 800 ml Free Water 10 ml IV Total 710 ml Tube Feeding 540 ml Other 40 ml Output Urine Total 500 ml Laboratory Tests 02/22/18 03:35: White Blood Count 12.8H, Red Blood Count 3.63L, Hemoglobin 10.3L, Hematocrit 34.6L, Mean Corpuscular Volume 95, Mean Corpuscular Hemoglobin 28.5, Mean Corpuscular Hemoglobin Concent 29.9L, Red Cell Distribution Width 15.7H, Platelet Count 624H, Mean Platelet Volume 6.3L, Neutrophils (%) (Auto) 68.1, Lymphocytes (%) (Auto) 19.1L, Monocytes (%) (Auto) 7.4, Eosinophils (%) (Auto) 4.9H, Basophils (%) (Auto) 0.5, Sodium Level 158H, Potassium Level 4.0, Chloride Level 121H, Carbon Dioxide Level 32, Anion Gap 5, Blood Urea Nitrogen 24H, Creatinine 1.0, Estimat Glomerular Filtration Rate > 60, Glucose Level 109H , Calcium Level 9.3, Phosphorus Level 2.7, Magnesium Level 2.3, Total Bilirubin 0.2, Aspartate Amino Transf (AST/SGOT) 91H, Alanine Aminotransferase (ALT/SGPT) 136H, Alkaline Phosphatase 147H, Total Protein 8.2, Albumin 1.7L, Globulin 6.5, Albumin/Globulin Ratio 0.3L Height (Feet): 5 Height (Inches): 11.00 Weight (Pounds): 137 General Appearance: confused Respiratory/Chest: decreased breath sounds Venancio James MD Feb 23, 2018 01:04
[2018-02-23 04:00] VITALS: BP 147/74
[2018-02-23 04:16] LABS: BASOPHILS % (AUTO) 0.5 % (0.0-2.0); EOSINOPHILS % (AUTO) 6.9 % (0.0-3.0); HEMOGLOBIN 10.1 G/DL (14.2-18.0); LYMPHOCYTES % (AUTO) 17.5 % (20.0-45.0); MEAN CORPUSCULAR VOLUME 94 FL (80-99); MONOCYTES % (AUTO) 7.6 % (1.0-10.0); NEUTROPHILS % (AUTO) 67.4 % (45.0-75.0); PLATELET COUNT 577 K/UL (150-450); RED CELL DISTRIBUTION WIDTH 15.6 % (11.6-14.8); WHITE BLOOD COUNT 14.3 K/UL (4.8-10.8)
[2018-02-23 04:41] LABS: ALANINE AMINOTRANSFERASE 122 U/L (12-78); ALBUMIN 1.7 G/DL (3.4-5.0); ALBUMIN/GLOBULIN RATIO 0.3 (1.0-2.7); ALKALINE PHOSPHATASE 147 U/L (46-116); ANION GAP 2 mmol/L (5-15); ASPARTATE AMINO TRANSFERASE 77 U/L (15-37); BILIRUBIN,TOTAL 0.2 MG/DL (0.2-1.0); BLOOD UREA NITROGEN 31 mg/dL (7-18); CARBON DIOXIDE 34 MMOL/L (21-32); CHLORIDE 115 MMOL/L (98-107); CREATININE 0.9 MG/DL (0.55-1.30); POTASSIUM 3.9 MMOL/L (3.5-5.1); SODIUM 151 MMOL/L (136-145)
[2018-02-23 04:49] LABS: PHOSPHORUS 2.1 MG/DL (2.5-4.9)
[2018-02-23] MEDS: Meropenem 1 GM in NS 110 ML IVPB SCH ×3 (05:23→22:12)
[2018-02-23 08:00] VITALS: BP 109/58
[2018-02-23] MEDS: Pantoprazole Inj IV SCH (09:06)
[2018-02-23] MEDS: levETIRAcetam 500mg/5ml Liquid GT SCH ×2 (09:07→21:26)
[2018-02-23] MEDS: Heparin 5000 units/ml inj SUBQ SCH ×2 (09:09→21:27)
--- NOTE | 2018-02-23 11:06 | Pulmonolgy Critical Care Note ---
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 manager - Objective Last 24 Hour Vital Signs Date Time Temp Pulse Resp B/P (MAP) Pulse Ox O2 Delivery O2 Flow Rate FiO2 02/23/18 08:00 35 02/23/18 08:00 122 02/23/18 08:00 98.1 124 19 109/58 100 Mechanical Ventilator 35 98.1 02/23/18 05:04 116 22 35 02/23/18 04:00 114 02/23/18 04:00 97.5 122 22 147/74 99 Mechanical Ventilator 35 97.5 02/23/18 04:00 35 02/23/18 03:23 105 15 35 02/23/18 01:17 107 15 35 02/23/18 00:00 35 02/23/18 00:00 98.1 113 15 149/74 100 Mechanical Ventilator 35 98.1 02/22/18 23:51 108 02/22/18 22:59 111 15 35 02/22/18 21:12 102 16 35 02/22/18 20:00 35 02/22/18 20:00 97.5 108 12 100/76 99 Mechanical Ventilator 35 97.5 02/22/18 19:50 100.6 02/22/18 19:50 100.6 02/22/18 19:37 111 02/22/18 18:53 122 19 35 02/22/18 18:00 100.6 02/22/18 17:59 100.6 02/22/18 17:29 118 5 35 02/22/18 16:49 110 02/22/18 16:00 100.4 120 18 106/67 99 Mechanical Ventilator 35 100.4 02/22/18 16:00 35 02/22/18 14:46 110 21 35 02/22/18 13:00 114 15 35 02/22/18 12:00 35 02/22/18 12:00 98.4 114 18 116/72 98 Mechanical Ventilator 35 98.4 02/22/18 11:48 110 Status: awake Condition: critical Neck: full ROM Heart: HR/BP stable, HR/BP unstable Abdomen: soft, active bowel sounds Extremities: no C/C/E Decubiti: location Micro: Microbiology Date/Time Source Procedure Growth Status 02/22/18 15:55 Indwelling Cath Urine Culture - Preliminary NO GROWTH Resulted Critical Care - Subjective ROS Limited/Unobtainable: No Condition: critical FI02: 35 Vent Support Breath Rate: 8 Vent Support Mode: IMV/SIMV Vent Tidal Volume: 600 Sputum Amount: Small PEEP: 5.0 PIP: 21 Tube Feeding Amount: 45 I&O: Intake and Output 02/22/18 02/23/18 19:00 07:00 Intake Total 1300 ml 1415 ml Output Total 500 ml 300 ml Balance 800 ml 1115 ml Free Water 10 ml 50 ml IV Total 710 ml 820 ml Tube Feeding 540 ml 495 ml Blood Product 50 ml Other 40 ml Output Urine Total 500 ml 300 ml CXR: no chage, Labs: Laboratory Tests Test 02/23/18 03:45 White Blood Count 14.3 K/UL (4.8-10.8) H Red Blood Count 3.50 M/UL (4.70-6.10) L Hemoglobin 10.1 G/DL (14.2-18.0) L Hematocrit 33.0 % (42.0-52.0) L Mean Corpuscular Volume 94 FL (80-99) Mean Corpuscular Hemoglobin 28.8 PG (27.0-31.0) Mean Corpuscular Hemoglobin Concent 30.6 G/DL (32.0-36.0) L Red Cell Distribution Width 15.6 % (11.6-14.8) H Platelet Count 577 K/UL (150-450) H Mean Platelet Volume 6.2 FL (6.5-10.1) L Neutrophils (%) (Auto) 67.4 % (45.0-75.0) Lymphocytes (%) (Auto) 17.5 % (20.0-45.0) L Monocytes (%) (Auto) 7.6 % (1.0-10.0) Eosinophils (%) (Auto) 6.9 % (0.0-3.0) H Basophils (%) (Auto) 0.5 % (0.0-2.0) Sodium Level 151 MMOL/L (136-145) H Potassium Level 3.9 MMOL/L (3.5-5.1) Chloride Level 115 MMOL/L (98-107) H Carbon Dioxide Level 34 MMOL/L (21-32) H Anion Gap 2 mmol/L (5-15) L Blood Urea Nitrogen 31 mg/dL (7-18) H Creatinine 0.9 MG/DL (0.55-1.30) Estimat Glomerular Filtration Rate > 60 mL/min (>60) Glucose Level 86 MG/DL (74-106) Uric Acid 5.2 MG/DL (2.6-7.2) Calcium Level 9.0 MG/DL (8.5-10.1) Phosphorus Level 2.1 MG/DL (2.5-4.9) L Magnesium Level 2.0 MG/DL (1.8-2.4) Total Bilirubin 0.2 MG/DL (0.2-1.0) Aspartate Amino Transf (AST/SGOT) 77 U/L (15-37) H Alanine Aminotransferase (ALT/SGPT) 122 U/L (12-78) H Alkaline Phosphatase 147 U/L (46-116) H Pro-B-Type Natriuretic Peptide 512 pg/mL (0-125) H Total Protein 7.9 G/DL (6.4-8.2) Albumin 1.7 G/DL (3.4-5.0) L Globulin 6.2 g/dL Albumin/Globulin Ratio 0.3 (1.0-2.7) L Shani Moses MD Feb 23, 2018 11:06
--- NOTE | 2018-02-23 11:14 | Diagnostic Imaging Report ---
Indication: Dyspnea Comparison: 02/17/2018 A single view chest radiograph was obtained. Findings: Tracheostomy noted. Pacemaker left noted. Heart size is normal. No definite infiltrate identified. IMPRESSION: No change. No acute findings appreciated
[2018-02-23 12:00] VITALS: BP 122/74
--- NOTE | 2018-02-23 15:03 | Nephrology Progress Note ---
Assessment/Plan Problem List: (1) Hypernatremia (2) Atrial fibrillation (3) Feeding by G-tube (4) Tracheostomy care Assessment Hypernatremia due to free water deficit Pressure ulcer, hip, left, unstageable Hypo albuminemia other (1) Chronic respiratory failure (2) Anemia (3) Atrial fibrillation (4) EF of 30 % reported- related Echo not found (5) Feeding by G-tube (6) Tracheostomy care (7) Transaminitis Plan Plan: D5w + Lasix monitor lytes recheck echo Subjective ROS Limited/Unobtainable: Yes Objective Objective Last 24 Hour Vital Signs Date Time Temp Pulse Resp B/P (MAP) Pulse Ox O2 Delivery O2 Flow Rate FiO2 02/23/18 14:24 100.0 02/23/18 13:25 100.9 02/23/18 12:00 100.9 120 20 122/74 100 Mechanical Ventilator 35 100.9 02/23/18 12:00 35 02/23/18 12:00 121 02/23/18 08:00 35 02/23/18 08:00 122 02/23/18 08:00 98.1 124 19 109/58 100 Mechanical Ventilator 35 98.1 02/23/18 05:04 116 22 35 02/23/18 04:00 114 02/23/18 04:00 97.5 122 22 147/74 99 Mechanical Ventilator 35 97.5 02/23/18 04:00 35 02/23/18 03:23 105 15 35 02/23/18 01:17 107 15 35 02/23/18 00:00 35 02/23/18 00:00 98.1 113 15 149/74 100 Mechanical Ventilator 35 98.1 02/22/18 23:51 108 02/22/18 22:59 111 15 35 02/22/18 21:12 102 16 35 02/22/18 20:00 35 02/22/18 20:00 97.5 108 12 100/76 99 Mechanical Ventilator 35 97.5 02/22/18 19:50 100.6 02/22/18 19:37 111 02/22/18 18:53 122 19 35 02/22/18 18:00 100.6 02/22/18 17:59 100.6 02/22/18 17:29 118 5 35 02/22/18 16:49 110 02/22/18 16:00 100.4 120 18 106/67 99 Mechanical Ventilator 35 100.4 02/22/18 16:00 35 Intake and Output 02/22/18 02/23/18 19:00 07:00 Intake Total 1300 ml 1415 ml Output Total 500 ml 300 ml Balance 800 ml 1115 ml Free Water 10 ml 50 ml IV Total 710 ml 820 ml Tube Feeding 540 ml 495 ml Blood Product 50 ml Other 40 ml Output Urine Total 500 ml 300 ml Laboratory Tests 02/23/18 03:45: White Blood Count 14.3H, Red Blood Count 3.50L, Hemoglobin 10.1L, Hematocrit 33.0L, Mean Corpuscular Volume 94, Mean Corpuscular Hemoglobin 28.8, Mean Corpuscular Hemoglobin Concent 30.6L, Red Cell Distribution Width 15.6H, Platelet Count 577H, Mean Platelet Volume 6.2L, Neutrophils (%) (Auto) 67.4, Lymphocytes (%) (Auto) 17.5L, Monocytes (%) (Auto) 7.6, Eosinophils (%) (Auto) 6.9H, Basophils (%) (Auto) 0.5, Sodium Level 151H, Potassium Level 3.9, Chloride Level 115H, Carbon Dioxide Level 34H, Anion Gap 2L, Blood Urea Nitrogen 31H, Creatinine 0.9, Estimat Glomerular Filtration Rate > 60, Glucose Level 86, Uric Acid 5.2, Calcium Level 9.0, Phosphorus Level 2.1L, Magnesium Level 2.0, Total Bilirubin 0.2, Aspartate Amino Transf (AST/SGOT) 77H, Alanine Aminotransferase (ALT/SGPT) 122H, Alkaline Phosphatase 147H, Pro-B-Type Natriuretic Peptide 512H, Total Protein 7.9, Albumin 1.7L, Globulin 6.2, Albumin /Globulin Ratio 0.3L Height (Feet): 5 Height (Inches): 11.00 Weight (Pounds): 131 General Appearance: no apparent distress Cardiovascular: tachycardia Respiratory/Chest: decreased breath sounds Abdomen: distended CRICKET MITCHELL Feb 23, 2018 15:03
[2018-02-23] MEDS: D5W IV SCH (15:50)
[2018-02-23 16:00] VITALS: BP 113/68
[2018-02-23] MEDS ORDERED: Potassium Phosphate 20 MM in NS 275 ML IV ONE (16:00)
--- NOTE | 2018-02-23 18:10 | Infectious Diseases Prog Note ---
Assessment/Plan Assessment/Plan ASSESSMENT: The patient is a 58-year-old male with, leukocytosis, increased Fever low grade Sepsis Multiple infected lower extremity decubitus, WndC x: MDR Providencia (+ skin colonizer ) surg : does not recommend I/D due pt clinical condition Bone scan limited for eval of osteomyelitis. ( due to contracted Ext. ) Purulent discharge from left hip. Rule out bacteremia. Ch transaminitis Hep C Ab + US : no sig findings SP Staph bacteremia, ( SP 4 wks AB rx ) Hx of Pseudomonas urinary tract infection. VDRF Status post trach and percutaneous endoscopic gastrostomy. Dementia Seizure disorder. History of pacemaker placement. Hypertension. COPD. Diabetes. PLAN: Cont pt on IV Merrem d# / , restart IV Vanco d# 1( empirically ) 02/20 SP vancomycin and Zosyn d#3 Monitor CBC Monitor BMP. Monitor cultures (blood ) Monitor chest x-ray. Continue vent support. Hep C up w as out pt Subjective Constitutional: Denies: no symptoms, fever, chills, fatigue, anorexia, drenching sweats, other Allergies: Coded Allergies: No Known Allergies (Unverified , 03/07/17) Subjective low grade fever Objective Vital Signs Last 24 Hour Vital Signs Date Time Temp Pulse Resp B/P (MAP) Pulse Ox O2 Delivery O2 Flow Rate FiO2 02/23/18 17:15 117 15 35 02/23/18 16:00 98.9 121 32 113/68 98 Mechanical Ventilator 35 98.9 02/23/18 16:00 35 02/23/18 15:29 121 16 35 02/23/18 14:24 100.0 02/23/18 13:25 100.9 02/23/18 13:00 120 17 35 02/23/18 12:00 100.9 120 20 122/74 100 Mechanical Ventilator 35 100.9 02/23/18 12:00 35 02/23/18 12:00 121 02/23/18 10:32 100 15 35 02/23/18 09:13 112 19 35 02/23/18 08:00 35 02/23/18 08:00 122 02/23/18 08:00 98.1 124 19 109/58 100 Mechanical Ventilator 35 98.1 02/23/18 07:29 109 16 35 02/23/18 05:04 116 22 35 02/23/18 04:00 114 02/23/18 04:00 97.5 122 22 147/74 99 Mechanical Ventilator 35 97.5 02/23/18 04:00 35 02/23/18 03:23 105 15 35 02/23/18 01:17 107 15 35 02/23/18 00:00 35 02/23/18 00:00 98.1 113 15 149/74 100 Mechanical Ventilator 35 98.1 02/22/18 23:51 108 02/22/18 22:59 111 15 35 02/22/18 21:12 102 16 35 02/22/18 20:00 35 02/22/18 20:00 97.5 108 12 100/76 99 Mechanical Ventilator 35 97.5 02/22/18 19:50 100.6 02/22/18 19:37 111 02/22/18 18:53 122 19 35 Height (Feet): 5 Height (Inches): 11.00 Weight (Pounds): 131 HEENT: anicteric Respiratory/Chest: no respiratory distress Cardiovascular: regular rhythm Microbiology Date/Time Source Procedure Growth Status 02/22/18 15:50 Sputum Gram Stain - Final Resulted 02/22/18 15:50 Sputum Sputum Culture Pending Resulted 02/22/18 15:55 Indwelling Cath Urine Culture - Preliminary NO GROWTH Resulted Laboratory Tests Test 02/23/18 03:45 White Blood Count 14.3 K/UL (4.8-10.8) H Red Blood Count 3.50 M/UL (4.70-6.10) L Hemoglobin 10.1 G/DL (14.2-18.0) L Hematocrit 33.0 % (42.0-52.0) L Mean Corpuscular Volume 94 FL (80-99) Mean Corpuscular Hemoglobin 28.8 PG (27.0-31.0) Mean Corpuscular Hemoglobin Concent 30.6 G/DL (32.0-36.0) L Red Cell Distribution Width 15.6 % (11.6-14.8) H Platelet Count 577 K/UL (150-450) H Mean Platelet Volume 6.2 FL (6.5-10.1) L Neutrophils (%) (Auto) 67.4 % (45.0-75.0) Lymphocytes (%) (Auto) 17.5 % (20.0-45.0) L Monocytes (%) (Auto) 7.6 % (1.0-10.0) Eosinophils (%) (Auto) 6.9 % (0.0-3.0) H Basophils (%) (Auto) 0.5 % (0.0-2.0) Sodium Level 151 MMOL/L (136-145) H Potassium Level 3.9 MMOL/L (3.5-5.1) Chloride Level 115 MMOL/L (98-107) H Carbon Dioxide Level 34 MMOL/L (21-32) H Anion Gap 2 mmol/L (5-15) L Blood Urea Nitrogen 31 mg/dL (7-18) H Creatinine 0.9 MG/DL (0.55-1.30) Estimat Glomerular Filtration Rate > 60 mL/min (>60) Glucose Level 86 MG/DL (74-106) Uric Acid 5.2 MG/DL (2.6-7.2) Calcium Level 9.0 MG/DL (8.5-10.1) Phosphorus Level 2.1 MG/DL (2.5-4.9) L Magnesium Level 2.0 MG/DL (1.8-2.4) Total Bilirubin 0.2 MG/DL (0.2-1.0) Aspartate Amino Transf (AST/SGOT) 77 U/L (15-37) H Alanine Aminotransferase (ALT/SGPT) 122 U/L (12-78) H Alkaline Phosphatase 147 U/L (46-116) H Pro-B-Type Natriuretic Peptide 512 pg/mL (0-125) H Total Protein 7.9 G/DL (6.4-8.2) Albumin 1.7 G/DL (3.4-5.0) L Globulin 6.2 g/dL Albumin/Globulin Ratio 0.3 (1.0-2.7) L Current Medications Medications (Trade) Dose Ordered Sig/Tameka Route PRN Reason Start Time Stop Time Status Last Admin Dose Admin Acetaminophen (Tylenol) 650 mg Q4H PRN ORAL FEVER 02/16/18 23:15 03/18/18 23:14 02/23/18 13:25 Dextrose 1,500 ml @ 150 mls/hr Q10H IV 02/23/18 15:30 03/25/18 15:29 02/23/18 15:50 Dextrose (Dextrose 50%) 25 ml STAT PRN IV HYPOGLYCEMIA 02/18/18 08:45 03/20/18 08:44 Dextrose (Dextrose 50%) 50 ml STAT PRN IV Hypoglycemia 02/18/18 08:45 03/18/18 23:14 Furosemide (Lasix) 10 mg EVERY 6 HOURS IV 02/22/18 14:30 03/24/18 14:29 02/23/18 17:44 Heparin Sodium (Porcine) (Heparin 5000 units/ml) 5,000 units EVERY 12 HOURS SUBQ 02/17/18 09:00 03/19/18 08:59 02/23/18 09:09 Levetiracetam (Keppra) 500 mg Q12HR GT 02/21/18 11:00 03/23/18 10:59 02/23/18 09:07 Lorazepam (Ativan 2mg/ml 1ml) 2 mg EVERY 2 HOURS PRN IV For Anxiety 02/16/18 23:15 02/23/18 23:14 Meropenem 1 gm/ Sodium Chloride 110 ml @ 220 mls/hr Q8HR IVPB 02/20/18 22:00 02/25/18 21:59 02/23/18 13:46 Morphine Sulfate (Morphine Sulfate) 4 mg EVERY 4 HOURS PRN IVP Severe Pain (Pain Scale 7-10) 02/16/18 23:15 02/23/18 23:14 02/22/18 18:00 Ondansetron HCl (Zofran) 4 mg Q6H PRN IVP Nausea & Vomiting 02/16/18 23:15 03/18/18 23:14 Pantoprazole (Protonix) 40 mg DAILY IV 02/17/18 09:00 03/19/18 08:59 02/23/18 09:06 Polyethylene Glycol (Miralax) 17 gm DAILYPRN PRN ORAL Constipation 02/16/18 23:15 03/18/18 23:14 Potassium Phosphate 20 mm/ Sodium Chloride 281.6667 ml @ 46.944 m... ONCE ONCE IV 02/23/18 16:00 02/23/18 21:59 02/23/18 15:51 Jake Naqvi MD Feb 23, 2018 18:10
[2018-02-23 20:00] VITALS: BP 140/90
[2018-02-23] MEDS ORDERED: Vancomycin 1gm in D5W 275ml IVPB SCH (20:00)
[2018-02-23] MEDS: Morphine Sulfate 4mg/ml Inj IVP PRN (21:08)
--- NOTE | 2018-02-23 23:23 | General Progress Note ---
Assessment/Plan Assessment/Plan #. Leukocytosis, likely secondary to infectious process from before, --> currently getting antibiotic vancomycin. --> Levels worsened from yesterday. --> Monitor for improvement. #. Anemia due to underlying chronic disease. --> Hemoglobin goal is above 7. --> Continue to closely monitor and trend cbc. --> It appears to be anemia secondary to chronic disease. --> The patient is currently debilitated, bedbound status. --> Hemoglobin levels have been stable. #. DVT Prophylaxis. --> On heparin #. Multiple infected decubitus ulceration, rule out osteomyelitis. #. Sepsis, currently being treated. #. Chronic vent-dependant respiratory failure. --> S/P tracheostomy #. Dysphagia, status post percutaneous endoscopic gastrostomy. #. Generalized weakness and anemia. #. Seizure disorder --> On keppra #. Atrial fibrillation. --> Hx of pacemaker placement. #. Hypertension. #. Encephalopathy. --> Pt with dementia Subjective Date patient seen: Feb 23, 2018 Constitutional: Denies: no symptoms, chills, diaphoresis, fever, malaise, weakness, other HEENT: Denies: no symptoms, eye pain, blurred vision, tearing, double vision, ear pain, ear discharge, nose pain, nose congestion, throat pain, throat swelling, mouth pain, mouth swelling, other Cardiovascular: Denies: no symptoms, chest pain, edema, irregular heart rate, lightheadedness, palpitations, syncope, other Respiratory: Denies: no symptoms, cough, orthopnea, shortness of breath, SOB with excertion, SOB at rest, sputum, stridor, wheezing, other Gastrointestinal/Abdominal: Denies: no symptoms, abdomen distended, abdominal pain, black stools, tarry stools, blood in stool, constipated, diarrhea, difficulty swallowing, nausea, poor appetite, poor fluid intake, rectal bleeding , vomiting, other Genitourinary: Denies: no symptoms, burning, discharge, frequency, flank pain, hematuria, incontinence, pain, urgency, other 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: Denies: no symptoms, anxiety, depressed, emotional problems, headache, numbness, paresthesia, pre-existing deficit, seizure, tingling, tremors, weakness, other Hematologic/Lymphatic: Reports: anemia Allergies: Coded Allergies: No Known Allergies (Unverified , 03/07/17) Subjective Confused. On vent. Leukocytosis worsened. Objective Last 24 Hour Vital Signs Date Time Temp Pulse Resp B/P (MAP) Pulse Ox O2 Delivery O2 Flow Rate FiO2 02/23/18 23:11 151 23 35 02/23/18 22:40 101.8 02/23/18 21:08 98.9 02/23/18 20:34 140 31 35 02/23/18 20:00 99.1 120 14 140/90 100 Mechanical Ventilator 35 99.1 02/23/18 20:00 35 02/23/18 19:00 125 02/23/18 18:49 120 26 35 02/23/18 17:15 117 15 35 02/23/18 16:00 98.9 121 32 113/68 98 Mechanical Ventilator 35 98.9 02/23/18 16:00 120 02/23/18 16:00 35 02/23/18 15:29 121 16 35 02/23/18 14:24 100.0 02/23/18 13:25 100.9 02/23/18 13:00 120 17 35 02/23/18 12:00 100.9 120 20 122/74 100 Mechanical Ventilator 35 100.9 02/23/18 12:00 35 02/23/18 12:00 121 02/23/18 10:32 100 15 35 02/23/18 09:13 112 19 35 02/23/18 08:00 35 02/23/18 08:00 122 02/23/18 08:00 98.1 124 19 109/58 100 Mechanical Ventilator 35 98.1 02/23/18 07:29 109 16 35 02/23/18 05:04 116 22 35 02/23/18 04:00 114 02/23/18 04:00 97.5 122 22 147/74 99 Mechanical Ventilator 35 97.5 02/23/18 04:00 35 02/23/18 03:23 105 15 35 02/23/18 01:17 107 15 35 02/23/18 00:00 35 02/23/18 00:00 98.1 113 15 149/74 100 Mechanical Ventilator 35 98.1 02/22/18 23:51 108 Intake and Output 02/22/18 02/23/18 19:00 07:00 Intake Total 1300 ml 1460 ml Output Total 500 ml 300 ml Balance 800 ml 1160 ml Free Water 10 ml 50 ml IV Total 710 ml 820 ml Tube Feeding 540 ml 540 ml Blood Product 50 ml Other 40 ml Output Urine Total 500 ml 300 ml Laboratory Tests 02/23/18 03:45: White Blood Count 14.3H, Red Blood Count 3.50L, Hemoglobin 10.1L, Hematocrit 33.0L, Mean Corpuscular Volume 94, Mean Corpuscular Hemoglobin 28.8, Mean Corpuscular Hemoglobin Concent 30.6L, Red Cell Distribution Width 15.6H, Platelet Count 577H, Mean Platelet Volume 6.2L, Neutrophils (%) (Auto) 67.4, Lymphocytes (%) (Auto) 17.5L, Monocytes (%) (Auto) 7.6, Eosinophils (%) (Auto) 6.9H, Basophils (%) (Auto) 0.5, Sodium Level 151H, Potassium Level 3.9, Chloride Level 115H, Carbon Dioxide Level 34H, Anion Gap 2L, Blood Urea Nitrogen 31H, Creatinine 0.9, Estimat Glomerular Filtration Rate > 60, Glucose Level 86, Uric Acid 5.2, Calcium Level 9.0, Phosphorus Level 2.1L, Magnesium Level 2.0, Total Bilirubin 0.2, Aspartate Amino Transf (AST/SGOT) 77H, Alanine Aminotransferase (ALT/SGPT) 122H, Alkaline Phosphatase 147H, Pro-B-Type Natriuretic Peptide 512H, Total Protein 7.9, Albumin 1.7L, Globulin 6.2, Albumin /Globulin Ratio 0.3L Height (Feet): 5 Height (Inches): 11.00 Weight (Pounds): 131 Respiratory/Chest: decreased breath sounds Venancio James MD Feb 23, 2018 23:23
[2018-02-24] VITALS: BP 123/79
[2018-02-24] MEDS: D5W IV SCH (01:30)
[2018-02-24 04:00] VITALS: BP 129/79
[2018-02-24 05:21] LABS: BASOPHILS % (AUTO) 0.6 % (0.0-2.0); EOSINOPHILS % (AUTO) 4.4 % (0.0-3.0); HEMATOCRIT 31.7 % (42.0-52.0); LYMPHOCYTES % (AUTO) 17.8 % (20.0-45.0); MEAN CORPUSCULAR VOLUME 93 FL (80-99); MONOCYTES % (AUTO) 5.5 % (1.0-10.0); NEUTROPHILS % (AUTO) 71.7 % (45.0-75.0); PLATELET COUNT 532 K/UL (150-450); RED CELL DISTRIBUTION WIDTH 15.5 % (11.6-14.8); WHITE BLOOD COUNT 15.7 K/UL (4.8-10.8)
[2018-02-24] MEDS: Meropenem 1 GM in NS 110 ML IVPB SCH ×3 (05:38→21:43)
[2018-02-24 05:53] LABS: ALANINE AMINOTRANSFERASE 136 U/L (12-78); ALBUMIN 1.6 G/DL (3.4-5.0); ALBUMIN/GLOBULIN RATIO 0.3 (1.0-2.7); ALKALINE PHOSPHATASE 144 U/L (46-116); ANION GAP 6 mmol/L (5-15); ASPARTATE AMINO TRANSFERASE 85 U/L (15-37); BILIRUBIN,TOTAL 0.3 MG/DL (0.2-1.0); BLOOD UREA NITROGEN 28 mg/dL (7-18); CALCIUM 8.8 MG/DL (8.5-10.1); CARBON DIOXIDE 29 MMOL/L (21-32); CHLORIDE 109 MMOL/L (98-107); CREATININE 1.1 MG/DL (0.55-1.30); PHOSPHORUS 3.4 MG/DL (2.5-4.9); POTASSIUM 4.3 MMOL/L (3.5-5.1); SODIUM 144 MMOL/L (136-145)
[2018-02-24 08:00] VITALS: BP 121/72
[2018-02-24] MEDS: Pantoprazole Inj IV SCH (11:09)
[2018-02-24] MEDS: levETIRAcetam 500mg/5ml Liquid GT SCH ×2 (11:09→20:38)
[2018-02-24] MEDS: Vancomycin 500mg in D5W 275ml IVPB SCH ×2 (11:09→20:36)
[2018-02-24] MEDS: Heparin 5000 units/ml inj SUBQ SCH ×2 (11:11→20:39)
--- NOTE | 2018-02-24 11:29 | Pulmonolgy Critical Care Note ---
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 Discussed with: nurses, consultants, patient case coordinatormining manager - Objective Last 24 Hour Vital Signs Date Time Temp Pulse Resp B/P (MAP) Pulse Ox O2 Delivery O2 Flow Rate FiO2 02/24/18 10:41 107 18 35 02/24/18 08:58 109 21 35 02/24/18 08:00 35 02/24/18 08:00 97.7 112 14 121/72 100 Mechanical Ventilator 35 97.7 02/24/18 07:28 113 02/24/18 07:10 107 21 35 02/24/18 04:33 104 19 35 02/24/18 04:05 105 02/24/18 04:00 97.3 102 17 129/79 100 Mechanical Ventilator 35 97.3 02/24/18 04:00 35 02/24/18 03:29 109 20 35 02/24/18 00:40 137 22 35 02/24/18 00:00 102.2 148 20 123/79 100 Mechanical Ventilator 35 102.2 02/24/18 00:00 146 02/23/18 23:39 102.2 02/23/18 23:11 151 23 35 02/23/18 22:40 101.8 02/23/18 21:08 98.9 02/23/18 20:34 140 31 35 02/23/18 20:00 99.1 120 14 140/90 100 Mechanical Ventilator 35 99.1 02/23/18 20:00 35 02/23/18 19:00 125 02/23/18 18:49 120 26 35 02/23/18 17:15 117 15 35 02/23/18 16:00 98.9 121 32 113/68 98 Mechanical Ventilator 35 98.9 02/23/18 16:00 120 02/23/18 16:00 35 02/23/18 15:29 121 16 35 02/23/18 13:25 100.9 02/23/18 13:00 120 17 35 02/23/18 12:00 100.9 120 20 122/74 100 Mechanical Ventilator 35 100.9 02/23/18 12:00 35 02/23/18 12:00 121 Status: awake Condition: critical Neck: full ROM Lungs: clear Heart: HR/BP stable, HR/BP unstable Abdomen: active bowel sounds Extremities: no C/C/E, edema Decubiti: location Micro: Microbiology Date/Time Source Procedure Growth Status 02/22/18 15:50 Sputum Gram Stain - Final Resulted 02/22/18 15:50 Sputum Culture - Preliminary Gram Negative Bacillus 1 Resulted 02/22/18 15:55 Indwelling Cath Urine Culture - Preliminary NO GROWTH AFTER 24 HOURS Resulted Critical Care - Subjective ROS Limited/Unobtainable: No Condition: critical EKG Rhythm: V-Paced FI02: 35 Vent Support Breath Rate: 8 Vent Support Mode: IMV/SIMV Vent Tidal Volume: 600 Sputum Amount: Scant PEEP: 5.0 PIP: 25 Tube Feeding Amount: 0 I&O: Intake and Output 02/23/18 02/24/18 19:00 07:00 Intake Total 1267.8736 ml 1653.888 ml Output Total 600 ml 1000 ml Balance 667.8736 ml 653.888 ml Free Water 100 ml IV Total 622.8736 ml 1653.888 ml Tube Feeding 495 ml Other 50 ml Output Urine Total 600 ml 1000 ml # Bowel Movements 1 CXR: no change Labs: Laboratory Tests Test 02/24/18 03:40 White Blood Count 15.7 K/UL (4.8-10.8) H Red Blood Count 3.40 M/UL (4.70-6.10) L Hemoglobin 10.0 G/DL (14.2-18.0) L Hematocrit 31.7 % (42.0-52.0) L Mean Corpuscular Volume 93 FL (80-99) Mean Corpuscular Hemoglobin 29.5 PG (27.0-31.0) Mean Corpuscular Hemoglobin Concent 31.6 G/DL (32.0-36.0) L Red Cell Distribution Width 15.5 % (11.6-14.8) H Platelet Count 532 K/UL (150-450) H Mean Platelet Volume 6.2 FL (6.5-10.1) L Neutrophils (%) (Auto) 71.7 % (45.0-75.0) Lymphocytes (%) (Auto) 17.8 % (20.0-45.0) L Monocytes (%) (Auto) 5.5 % (1.0-10.0) Eosinophils (%) (Auto) 4.4 % (0.0-3.0) H Basophils (%) (Auto) 0.6 % (0.0-2.0) Sodium Level 144 MMOL/L (136-145) Potassium Level 4.3 MMOL/L (3.5-5.1) Chloride Level 109 MMOL/L (98-107) H Carbon Dioxide Level 29 MMOL/L (21-32) Anion Gap 6 mmol/L (5-15) Blood Urea Nitrogen 28 mg/dL (7-18) H Creatinine 1.1 MG/DL (0.55-1.30) Estimat Glomerular Filtration Rate > 60 mL/min (>60) Glucose Level 95 MG/DL (74-106) Calcium Level 8.8 MG/DL (8.5-10.1) Phosphorus Level 3.4 MG/DL (2.5-4.9) Magnesium Level 2.1 MG/DL (1.8-2.4) Total Bilirubin 0.3 MG/DL (0.2-1.0) Aspartate Amino Transf (AST/SGOT) 85 U/L (15-37) H Alanine Aminotransferase (ALT/SGPT) 136 U/L (12-78) H Alkaline Phosphatase 144 U/L (46-116) H Total Protein 7.9 G/DL (6.4-8.2) Albumin 1.6 G/DL (3.4-5.0) L Globulin 6.3 g/dL Albumin/Globulin Ratio 0.3 (1.0-2.7) L Shani Moses MD Feb 24, 2018 11:29
[2018-02-24 12:00] VITALS: BP 111/77
[2018-02-24] MEDS ORDERED: LORazepam Inj 2mg/ml 1ml IV PRN (12:30)
[2018-02-24] MEDS: Morphine Sulfate 4mg/ml Inj IVP PRN ×2 (12:45→20:37)
--- NOTE | 2018-02-24 13:09 | Diagnostic Imaging Report ---
Indication: Abdominal pain, abnormal liver function tests, abnormal renal function tests, history of cirrhosis Technique: Martin-scale and duplex images of the upper abdomen were obtained Comparison: 06/24/2017; reference also made to 07/10/2017 CT scan Findings: Exam is somewhat limited. Gastrostomy tube and bandages limit sonographic windows Gallbladder demonstrates no stones. It is incompletely distended. There is borderline gallbladder wall thickening, measuring 3 mm. Sonographic Melendez sign could not be assessed due to patient condition. Common bile duct measures 6 mm in diameter. No intrahepatic biliary ductal dilatation. Liver demonstrates normal echogenicity. It demonstrates a focal slight surface nodularity. No focal abnormality. Note that the left hepatic lobe cannot be visualized due to limitations described above Portal vein and hepatic veins are patent. Pancreas is obscured by bowel gas. Spleen is unremarkable. Left kidney measures 9.5 cm in length. Right kidney measures 11 cm length. Both kidneys demonstrate slightly increased echogenicity. There is no hydronephrosis. Echogenic foci in the renal sinuses bilaterally likely reflect small calyceal and/or parenchymal calcifications described on prior CT scan. There is a small cyst in the left kidney. Urinary bladder volume is on 185 mL. Calculi are seen layering dependently in the bladder. Bilateral ureteral jets are noted. Abdominal aorta is partially obscured by bowel gas, visualized portions are non-aneurysmal . Impression: Somewhat limited exam, as described, with nonvisualization of the pancreas, portions of the abdominal aorta, portions of the left lobe of the liver Nonobstructive bilateral renal calcifications Bladder calculi Negative for gallstones or dilated ducts Borderline gallbladder wall thickening, likely an artifact of under distention Possible slight hepatic surface nodularity, could indicate cirrhotic change
--- NOTE | 2018-02-24 13:16 | Nephrology Progress Note ---
Assessment/Plan Problem List: (1) Hypernatremia (2) Atrial fibrillation (3) Feeding by G-tube (4) Tracheostomy care Assessment Hypernatremia due to free water deficit improved Pressure ulcer, hip, left, unstageable Hypo albuminemia other (1) Chronic respiratory failure (2) Anemia (3) Atrial fibrillation (4) EF of 30 % reported- related Echo not found (5) Feeding by G-tube (6) Tracheostomy care (7) Transaminitis Plan Plan: stop lasix monitor lytes recheck echo Subjective ROS Limited/Unobtainable: Yes Objective Objective Last 24 Hour Vital Signs Date Time Temp Pulse Resp B/P (MAP) Pulse Ox O2 Delivery O2 Flow Rate FiO2 02/24/18 13:01 104 19 35 02/24/18 12:45 97.9 02/24/18 12:00 35 02/24/18 12:00 97.9 106 14 111/77 100 Mechanical Ventilator 35 97.9 02/24/18 10:41 107 18 35 02/24/18 08:58 109 21 35 02/24/18 08:00 35 02/24/18 08:00 97.7 112 14 121/72 100 Mechanical Ventilator 35 97.7 02/24/18 07:28 113 02/24/18 07:10 107 21 35 02/24/18 04:33 104 19 35 02/24/18 04:05 105 02/24/18 04:00 97.3 102 17 129/79 100 Mechanical Ventilator 35 97.3 02/24/18 04:00 35 02/24/18 03:29 109 20 35 02/24/18 00:40 137 22 35 02/24/18 00:00 102.2 148 20 123/79 100 Mechanical Ventilator 35 102.2 02/24/18 00:00 146 02/23/18 23:39 102.2 02/23/18 23:11 151 23 35 02/23/18 22:40 101.8 02/23/18 21:08 98.9 02/23/18 20:34 140 31 35 02/23/18 20:00 99.1 120 14 140/90 100 Mechanical Ventilator 35 99.1 02/23/18 20:00 35 02/23/18 19:00 125 02/23/18 18:49 120 26 35 02/23/18 17:15 117 15 35 02/23/18 16:00 98.9 121 32 113/68 98 Mechanical Ventilator 35 98.9 02/23/18 16:00 120 02/23/18 16:00 35 02/23/18 15:29 121 16 35 02/23/18 13:25 100.9 Intake and Output 02/23/18 02/24/18 19:00 07:00 Intake Total 1267.8736 ml 1653.888 ml Output Total 600 ml 1000 ml Balance 667.8736 ml 653.888 ml Free Water 100 ml IV Total 622.8736 ml 1653.888 ml Tube Feeding 495 ml Other 50 ml Output Urine Total 600 ml 1000 ml # Bowel Movements 1 Laboratory Tests 02/24/18 03:40: White Blood Count 15.7H, Red Blood Count 3.40L, Hemoglobin 10.0L, Hematocrit 31.7L, Mean Corpuscular Volume 93, Mean Corpuscular Hemoglobin 29.5, Mean Corpuscular Hemoglobin Concent 31.6L, Red Cell Distribution Width 15.5H, Platelet Count 532H, Mean Platelet Volume 6.2L, Neutrophils (%) (Auto) 71.7, Lymphocytes (%) (Auto) 17.8L, Monocytes (%) (Auto) 5.5, Eosinophils (%) (Auto) 4.4H, Basophils (%) (Auto) 0.6, Sodium Level 144, Potassium Level 4.3, Chloride Level 109H, Carbon Dioxide Level 29, Anion Gap 6, Blood Urea Nitrogen 28H, Creatinine 1.1, Estimat Glomerular Filtration Rate > 60, Glucose Level 95, Calcium Level 8.8, Phosphorus Level 3.4, Magnesium Level 2.1, Total Bilirubin 0.3, Aspartate Amino Transf (AST/SGOT) 85H, Alanine Aminotransferase (ALT/SGPT) 136H, Alkaline Phosphatase 144H, Total Protein 7.9, Albumin 1.6L, Globulin 6.3, Albumin/Globulin Ratio 0.3L Height (Feet): 5 Height (Inches): 11.00 Weight (Pounds): 140 General Appearance: no apparent distress Cardiovascular: tachycardia Respiratory/Chest: decreased breath sounds Abdomen: distended CRICKET MITCHELL Feb 24, 2018 13:16
[2018-02-24] MEDS ORDERED: Tubing Blood Filter IV ONE (15:36)
[2018-02-24] MEDS ORDERED: NS 275ml ONE (15:36)
[2018-02-24] MEDS ORDERED: Tubing IV Secondary IV ONE (15:36)
[2018-02-24 16:00] VITALS: BP 123/79
--- NOTE | 2018-02-24 16:29 | Infectious Diseases Prog Note ---
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 ( due to contracted Ext. ) Purulent discharge from left hip. Rule out bacteremia. Ch transaminitis Hep C Ab + US : no sig findings Negative for gallstones or dilated ducts, Borderline gallbladder wall thickening, likely an artifact of under distention SP Staph bacteremia, ( SP 4 wks AB rx ) Hx of Pseudomonas urinary tract infection. no Evid of Pnuem SCx: GNR ( colonizer ) Cxray : NAPD VDRF Status post trach and percutaneous endoscopic gastrostomy. Dementia Seizure disorder. History of pacemaker placement. Hypertension. COPD. Diabetes. PLAN: Cont pt on IV Merrem d# 5 / 14 , and IV Vanco d# 2 ( empirically ) / SP vancomycin and Zosyn d#3 Monitor CBC Monitor BMP. Monitor cultures (blood ) Monitor chest x-ray. Continue vent support. Hep C up w as out pt Subjective Allergies: Coded Allergies: No Known Allergies (Unverified , 03/07/17) Subjective low grade fever improving Objective Vital Signs Last 24 Hour Vital Signs Date Time Temp Pulse Resp B/P (MAP) Pulse Ox O2 Delivery O2 Flow Rate FiO2 02/24/18 14:45 102 19 35 02/24/18 13:29 97.9 02/24/18 13:01 104 19 35 02/24/18 12:45 97.9 02/24/18 12:00 35 02/24/18 12:00 97.9 106 14 111/77 100 Mechanical Ventilator 35 97.9 02/24/18 11:34 108 02/24/18 10:41 107 18 35 02/24/18 08:58 109 21 35 02/24/18 08:00 35 02/24/18 08:00 97.7 112 14 121/72 100 Mechanical Ventilator 35 97.7 02/24/18 07:28 113 02/24/18 07:10 107 21 35 02/24/18 04:33 104 19 35 02/24/18 04:05 105 02/24/18 04:00 97.3 102 17 129/79 100 Mechanical Ventilator 35 97.3 02/24/18 04:00 35 02/24/18 03:29 109 20 35 02/24/18 00:40 137 22 35 02/24/18 00:00 102.2 148 20 123/79 100 Mechanical Ventilator 35 102.2 02/24/18 00:00 146 02/23/18 23:39 102.2 02/23/18 23:11 151 23 35 02/23/18 22:40 101.8 02/23/18 21:08 98.9 02/23/18 20:34 140 31 35 02/23/18 20:00 99.1 120 14 140/90 100 Mechanical Ventilator 35 99.1 02/23/18 20:00 35 02/23/18 19:00 125 02/23/18 18:49 120 26 35 02/23/18 17:15 117 15 35 Height (Feet): 5 Height (Inches): 11.00 Weight (Pounds): 140 HEENT: atraumatic Respiratory/Chest: no respiratory distress Cardiovascular: regular rhythm Abdomen: non distended Microbiology Date/Time Source Procedure Growth Status 02/22/18 15:50 Sputum Gram Stain - Final Resulted 02/22/18 15:50 Sputum Culture - Preliminary Gram Negative Bacillus 1 Resulted 02/22/18 15:55 Indwelling Cath Urine Culture - Preliminary NO GROWTH AFTER 24 HOURS Resulted Laboratory Tests Test 02/24/18 03:40 White Blood Count 15.7 K/UL (4.8-10.8) H Red Blood Count 3.40 M/UL (4.70-6.10) L Hemoglobin 10.0 G/DL (14.2-18.0) L Hematocrit 31.7 % (42.0-52.0) L Mean Corpuscular Volume 93 FL (80-99) Mean Corpuscular Hemoglobin 29.5 PG (27.0-31.0) Mean Corpuscular Hemoglobin Concent 31.6 G/DL (32.0-36.0) L Red Cell Distribution Width 15.5 % (11.6-14.8) H Platelet Count 532 K/UL (150-450) H Mean Platelet Volume 6.2 FL (6.5-10.1) L Neutrophils (%) (Auto) 71.7 % (45.0-75.0) Lymphocytes (%) (Auto) 17.8 % (20.0-45.0) L Monocytes (%) (Auto) 5.5 % (1.0-10.0) Eosinophils (%) (Auto) 4.4 % (0.0-3.0) H Basophils (%) (Auto) 0.6 % (0.0-2.0) Sodium Level 144 MMOL/L (136-145) Potassium Level 4.3 MMOL/L (3.5-5.1) Chloride Level 109 MMOL/L (98-107) H Carbon Dioxide Level 29 MMOL/L (21-32) Anion Gap 6 mmol/L (5-15) Blood Urea Nitrogen 28 mg/dL (7-18) H Creatinine 1.1 MG/DL (0.55-1.30) Estimat Glomerular Filtration Rate > 60 mL/min (>60) Glucose Level 95 MG/DL (74-106) Calcium Level 8.8 MG/DL (8.5-10.1) Phosphorus Level 3.4 MG/DL (2.5-4.9) Magnesium Level 2.1 MG/DL (1.8-2.4) Total Bilirubin 0.3 MG/DL (0.2-1.0) Aspartate Amino Transf (AST/SGOT) 85 U/L (15-37) H Alanine Aminotransferase (ALT/SGPT) 136 U/L (12-78) H Alkaline Phosphatase 144 U/L (46-116) H Total Protein 7.9 G/DL (6.4-8.2) Albumin 1.6 G/DL (3.4-5.0) L Globulin 6.3 g/dL Albumin/Globulin Ratio 0.3 (1.0-2.7) L Current Medications Medications (Trade) Dose Ordered Sig/Tameka Route PRN Reason Start Time Stop Time Status Last Admin Dose Admin Acetaminophen (Tylenol) 650 mg Q4H PRN ORAL FEVER 02/16/18 23:15 03/18/18 23:14 02/23/18 22:40 Dextrose (Dextrose 50%) 25 ml STAT PRN IV HYPOGLYCEMIA 02/18/18 08:45 03/20/18 08:44 Dextrose (Dextrose 50%) 50 ml STAT PRN IV Hypoglycemia 02/18/18 08:45 03/18/18 23:14 Heparin Sodium (Porcine) (Heparin 5000 units/ml) 5,000 units EVERY 12 HOURS SUBQ 02/17/18 09:00 03/19/18 08:59 02/24/18 11:11 Levetiracetam (Keppra) 500 mg Q12HR GT 02/21/18 11:00 03/23/18 10:59 02/24/18 11:09 Lorazepam (Ativan 2mg/ml 1ml) 2 mg EVERY 2 HOURS PRN IV For Anxiety 02/24/18 12:30 03/03/18 12:29 Meropenem 1 gm/ Sodium Chloride 110 ml @ 220 mls/hr Q8HR IVPB 02/20/18 22:00 03/05/18 23:00 02/24/18 05:38 Morphine Sulfate (Morphine Sulfate) 4 mg Q4H PRN IVP Severe Pain (Pain Scale 7-10) 02/24/18 12:30 03/03/18 12:29 02/24/18 12:45 Ondansetron HCl (Zofran) 4 mg Q6H PRN IVP Nausea & Vomiting 02/16/18 23:15 03/18/18 23:14 Pantoprazole (Protonix) 40 mg DAILY IV 02/17/18 09:00 03/19/18 08:59 02/24/18 11:09 Polyethylene Glycol (Miralax) 17 gm DAILYPRN PRN ORAL Constipation 02/16/18 23:15 03/18/18 23:14 Vancomycin HCl (Vanco rx to dose) 1 ea DAILY PRN MISC Per rx protocol 02/23/18 18:15 03/25/18 18:14 Vancomycin HCl 500 mg/Dextrose 275 ml @ 275 mls/hr Q12HR IVPB 02/24/18 09:00 03/01/18 08:59 02/24/18 11:09 Jake Naqvi MD Feb 24, 2018 16:29
[2018-02-24 20:00] VITALS: BP 109/67
--- NOTE | 2018-02-24 23:47 | General Progress Note ---
Assessment/Plan Assessment/Plan #. Leukocytosis, likely secondary to infectious process from before, --> currently getting antibiotic vancomycin. --> Levels worsened from yesterday. --> Monitor for improvement. #. Anemia due to underlying chronic disease. --> Hemoglobin goal is above 7. --> Continue to closely monitor and trend cbc. --> It appears to be anemia secondary to chronic disease. --> The patient is currently debilitated, bedbound status. --> Hemoglobin levels have been stable. #. DVT Prophylaxis. --> On heparin #. Multiple infected decubitus ulceration, rule out osteomyelitis. #. Sepsis, currently being treated. #. Chronic vent-dependant respiratory failure. --> S/P tracheostomy #. Dysphagia, status post percutaneous endoscopic gastrostomy. #. Generalized weakness and anemia. #. Seizure disorder --> On keppra #. Atrial fibrillation. --> Hx of pacemaker placement. #. Hypertension. #. Encephalopathy. --> Pt with dementia Subjective Date patient seen: Feb 24, 2018 Constitutional: Denies: no symptoms, chills, diaphoresis, fever, malaise, weakness, other HEENT: Denies: no symptoms, eye pain, blurred vision, tearing, double vision, ear pain, ear discharge, nose pain, nose congestion, throat pain, throat swelling, mouth pain, mouth swelling, other Cardiovascular: Denies: no symptoms, chest pain, edema, irregular heart rate, lightheadedness, palpitations, syncope, other Respiratory: Denies: no symptoms, cough, orthopnea, shortness of breath, SOB with excertion, SOB at rest, sputum, stridor, wheezing, other Gastrointestinal/Abdominal: Denies: no symptoms, abdomen distended, abdominal pain, black stools, tarry stools, blood in stool, constipated, diarrhea, difficulty swallowing, nausea, poor appetite, poor fluid intake, rectal bleeding , vomiting, other Genitourinary: Denies: no symptoms, burning, discharge, frequency, flank pain, hematuria, incontinence, pain, urgency, other 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: Denies: no symptoms, anxiety, depressed, emotional problems, headache, numbness, paresthesia, pre-existing deficit, seizure, tingling, tremors, weakness, other Hematologic/Lymphatic: Reports: anemia Allergies: Coded Allergies: No Known Allergies (Unverified , 03/07/17) Subjective No new events overnight. Leukocytosis. On vanco Objective Last 24 Hour Vital Signs Date Time Temp Pulse Resp B/P (MAP) Pulse Ox O2 Delivery O2 Flow Rate FiO2 02/24/18 22:36 96 16 35 02/24/18 21:08 101 16 35 02/24/18 20:00 97.5 102 15 109/67 100 Mechanical Ventilator 35 97.5 02/24/18 20:00 35 02/24/18 19:26 94 14 35 02/24/18 19:14 91 02/24/18 16:53 100 14 35 02/24/18 16:00 35 02/24/18 16:00 99.7 100 14 123/79 100 Mechanical Ventilator 35 99.7 02/24/18 15:16 101 02/24/18 14:45 102 19 35 02/24/18 13:29 97.9 02/24/18 13:01 104 19 35 02/24/18 12:45 97.9 02/24/18 12:00 35 02/24/18 12:00 97.9 106 14 111/77 100 Mechanical Ventilator 35 97.9 02/24/18 11:34 108 02/24/18 10:41 107 18 35 02/24/18 08:58 109 21 35 02/24/18 08:00 35 02/24/18 08:00 97.7 112 14 121/72 100 Mechanical Ventilator 35 97.7 02/24/18 07:28 113 02/24/18 07:10 107 21 35 02/24/18 04:33 104 19 35 02/24/18 04:05 105 02/24/18 04:00 97.3 102 17 129/79 100 Mechanical Ventilator 35 97.3 02/24/18 04:00 35 02/24/18 03:29 109 20 35 02/24/18 00:40 137 22 35 02/24/18 00:00 102.2 148 20 123/79 100 Mechanical Ventilator 35 102.2 02/24/18 00:00 146 Intake and Output 02/23/18 02/24/18 19:00 07:00 Intake Total 1267.8736 ml 1653.888 ml Output Total 600 ml 1000 ml Balance 667.8736 ml 653.888 ml Free Water 100 ml IV Total 622.8736 ml 1653.888 ml Tube Feeding 495 ml Other 50 ml Output Urine Total 600 ml 1000 ml # Bowel Movements 1 Laboratory Tests 02/24/18 03:40: White Blood Count 15.7H, Red Blood Count 3.40L, Hemoglobin 10.0L, Hematocrit 31.7L, Mean Corpuscular Volume 93, Mean Corpuscular Hemoglobin 29.5, Mean Corpuscular Hemoglobin Concent 31.6L, Red Cell Distribution Width 15.5H, Platelet Count 532H, Mean Platelet Volume 6.2L, Neutrophils (%) (Auto) 71.7, Lymphocytes (%) (Auto) 17.8L, Monocytes (%) (Auto) 5.5, Eosinophils (%) (Auto) 4.4H, Basophils (%) (Auto) 0.6, Sodium Level 144, Potassium Level 4.3, Chloride Level 109H, Carbon Dioxide Level 29, Anion Gap 6, Blood Urea Nitrogen 28H, Creatinine 1.1, Estimat Glomerular Filtration Rate > 60, Glucose Level 95, Calcium Level 8.8, Phosphorus Level 3.4, Magnesium Level 2.1, Total Bilirubin 0.3, Aspartate Amino Transf (AST/SGOT) 85H, Alanine Aminotransferase (ALT/SGPT) 136H, Alkaline Phosphatase 144H, Total Protein 7.9, Albumin 1.6L, Globulin 6.3, Albumin/Globulin Ratio 0.3L Height (Feet): 5 Height (Inches): 11.00 Weight (Pounds): 140 General Appearance: confused Respiratory/Chest: decreased breath sounds Venancio James MD Feb 24, 2018 23:47
[2018-02-25] VITALS: BP 110/73
[2018-02-25] MEDS: Morphine Sulfate 4mg/ml Inj IVP PRN (02:02)
[2018-02-25 04:00] VITALS: BP 132/81
[2018-02-25] MEDS: Meropenem 1 GM in NS 110 ML IVPB SCH ×3 (05:34→21:45)
[2018-02-25 05:53] LABS: BASOPHILS % (AUTO) 0.5 % (0.0-2.0); EOSINOPHILS % (AUTO) 9.4 % (0.0-3.0); HEMATOCRIT 31.4 % (42.0-52.0); LYMPHOCYTES % (AUTO) 16.7 % (20.0-45.0); MEAN CORPUSCULAR VOLUME 92 FL (80-99); MONOCYTES % (AUTO) 8.8 % (1.0-10.0); NEUTROPHILS % (AUTO) 64.5 % (45.0-75.0); PLATELET COUNT 496 K/UL (150-450); WHITE BLOOD COUNT 8.8 K/UL (4.8-10.8)
[2018-02-25 06:05] LABS: ALANINE AMINOTRANSFERASE 86 U/L (12-78); ALBUMIN 1.7 G/DL (3.4-5.0); ALBUMIN/GLOBULIN RATIO 0.3 (1.0-2.7); ALKALINE PHOSPHATASE 145 U/L (46-116); ANION GAP 7 mmol/L (5-15); ASPARTATE AMINO TRANSFERASE 34 U/L (15-37); BILIRUBIN,TOTAL 0.3 MG/DL (0.2-1.0); BLOOD UREA NITROGEN 24 mg/dL (7-18); CALCIUM 8.9 MG/DL (8.5-10.1); CARBON DIOXIDE 28 MMOL/L (21-32); CHLORIDE 109 MMOL/L (98-107); PHOSPHORUS 3.3 MG/DL (2.5-4.9); POTASSIUM 3.7 MMOL/L (3.5-5.1); SODIUM 144 MMOL/L (136-145)
[2018-02-25 08:00] VITALS: BP 94/56
[2018-02-25] MEDS: Pantoprazole Inj IV SCH (09:24)
[2018-02-25] MEDS: levETIRAcetam 500mg/5ml Liquid GT SCH ×2 (09:24→21:44)
[2018-02-25] MEDS: Vancomycin 500mg in D5W 275ml IVPB SCH (09:26)
[2018-02-25] MEDS: Heparin 5000 units/ml inj SUBQ SCH ×2 (09:35→21:46)
[2018-02-25] MEDS ORDERED: NS 275ml ONE (11:36)
--- NOTE | 2018-02-25 11:43 | Pulmonolgy Critical Care Note ---
Critical Care - Asmt/Plan Problems: (1) Chronic respiratory failure (2) Anemia (3) Atrial fibrillation (4) EF of 30 (5) Feeding by G-tube (6) Tracheostomy care (7) Transaminitis Respiratory: monitor respiratory rate Cardiac: continue to monitor HR/BP Renal: F/U I&O Infectious Disease: check cultures, continue antibiotics Gastrointestinal: hold feedings Endocrine: monitor blood sugar, check HgA1C, continue sliding scale insulin Hematologic: monitor H/H, transfuse if hgb<8.5 Neurologic: keep patient comfortable Affect: PRN ativan Prophylaxis: Protonix Notes Reviewed: cardio, renal Discussed with: consultants, disease case manager rnimport customer service manager - Objective Last 24 Hour Vital Signs Date Time Temp Pulse Resp B/P (MAP) Pulse Ox O2 Delivery O2 Flow Rate FiO2 02/25/18 08:38 109 16 35 02/25/18 08:18 35 02/25/18 08:00 98.2 106 14 94/56 100 Mechanical Ventilator 35 98.2 02/25/18 07:29 107 02/25/18 07:10 100 15 35 02/25/18 04:42 98 12 35 02/25/18 04:00 94 02/25/18 04:00 35 02/25/18 04:00 97.7 104 18 132/81 100 Mechanical Ventilator 35 97.7 02/25/18 03:18 99 13 35 02/25/18 01:19 104 14 35 02/25/18 00:00 98 02/25/18 00:00 97.3 111 14 110/73 97 Mechanical Ventilator 35 97.3 02/25/18 00:00 35 02/24/18 22:36 96 16 35 02/24/18 21:08 101 16 35 02/24/18 20:00 97.5 102 15 109/67 100 Mechanical Ventilator 35 97.5 02/24/18 20:00 35 02/24/18 19:26 94 14 35 02/24/18 19:14 91 02/24/18 16:53 100 14 35 02/24/18 16:00 35 02/24/18 16:00 99.7 100 14 123/79 100 Mechanical Ventilator 35 99.7 02/24/18 15:16 101 02/24/18 14:45 102 19 35 02/24/18 13:29 97.9 02/24/18 13:01 104 19 35 4/10/18 12:45 97.9 02/24/18 12:00 35 02/24/18 12:00 97.9 106 14 111/77 100 Mechanical Ventilator 35 97.9 Status: awake Condition: grave Neck: full ROM Lungs: chest wall tender Heart: HR/BP unstable Abdomen: soft, non-tender Extremities: edema Micro: Microbiology Date/Time Source Procedure Growth Status 02/22/18 15:50 Sputum Gram Stain - Final Resulted 02/22/18 15:50 Sputum Culture - Preliminary Gram Negative Bacillus 1 Resulted 02/22/18 15:55 Indwelling Cath Urine Culture - Final NO GROWTH AFTER 48 HOURS Complete Critical Care - Subjective ROS Limited/Unobtainable: No Condition: critical FI02: 35 Vent Support Breath Rate: 8 Vent Support Mode: IMV/SIMV Vent Tidal Volume: 600 Sputum Amount: Moderate PEEP: 5.0 PIP: 16 Tube Feeding Amount: 30 I&O: Intake and Output 02/24/18 02/25/18 19:00 07:00 Intake Total 485 ml 870 ml Output Total 500 ml 400 ml Balance -15 ml 470 ml Free Water 10 ml IV Total 385 ml 495 ml Tube Feeding 90 ml 345 ml Other 30 ml Output Urine Total 500 ml 400 ml # Bowel Movements 1 2 CXR: no chagne Labs: Laboratory Tests Test 02/25/18 04:40 White Blood Count 8.8 K/UL (4.8-10.8) Red Blood Count 3.40 M/UL (4.70-6.10) L Hemoglobin 10.0 G/DL (14.2-18.0) L Hematocrit 31.4 % (42.0-52.0) L Mean Corpuscular Volume 92 FL (80-99) Mean Corpuscular Hemoglobin 29.5 PG (27.0-31.0) Mean Corpuscular Hemoglobin Concent 31.9 G/DL (32.0-36.0) L Red Cell Distribution Width 15.0 % (11.6-14.8) H Platelet Count 496 K/UL (150-450) H Mean Platelet Volume 6.5 FL (6.5-10.1) Neutrophils (%) (Auto) 64.5 % (45.0-75.0) Lymphocytes (%) (Auto) 16.7 % (20.0-45.0) L Monocytes (%) (Auto) 8.8 % (1.0-10.0) Eosinophils (%) (Auto) 9.4 % (0.0-3.0) H Basophils (%) (Auto) 0.5 % (0.0-2.0) Sodium Level 144 MMOL/L (136-145) Potassium Level 3.7 MMOL/L (3.5-5.1) Chloride Level 109 MMOL/L (98-107) H Carbon Dioxide Level 28 MMOL/L (21-32) Anion Gap 7 mmol/L (5-15) Blood Urea Nitrogen 24 mg/dL (7-18) H Creatinine 1.0 MG/DL (0.55-1.30) Estimat Glomerular Filtration Rate > 60 mL/min (>60) Glucose Level 87 MG/DL (74-106) Calcium Level 8.9 MG/DL (8.5-10.1) Phosphorus Level 3.3 MG/DL (2.5-4.9) Magnesium Level 2.1 MG/DL (1.8-2.4) Total Bilirubin 0.3 MG/DL (0.2-1.0) Aspartate Amino Transf (AST/SGOT) 34 U/L (15-37) Alanine Aminotransferase (ALT/SGPT) 86 U/L (12-78) H Alkaline Phosphatase 145 U/L (46-116) H Total Protein 7.7 G/DL (6.4-8.2) Albumin 1.7 G/DL (3.4-5.0) L Globulin 6.0 g/dL Albumin/Globulin Ratio 0.3 (1.0-2.7) L Shani Moses MD Feb 25, 2018 11:43
[2018-02-25 12:00] VITALS: BP 103/69
--- NOTE | 2018-02-25 12:04 | Nephrology Progress Note ---
Assessment/Plan Problem List: (1) Hypernatremia (2) Atrial fibrillation (3) Feeding by G-tube (4) Tracheostomy care Assessment Hypernatremia due to free water deficit improved Pressure ulcer, hip, left, unstageable Hypo albuminemia other (1) Chronic respiratory failure (2) Anemia (3) Atrial fibrillation (4) EF of 30 % reported- related Echo not found (5) Feeding by G-tube (6) Tracheostomy care (7) Transaminitis Plan Plan: stop lasix monitor lytes recheck echo Subjective ROS Limited/Unobtainable: Yes Objective Objective Last 24 Hour Vital Signs Date Time Temp Pulse Resp B/P (MAP) Pulse Ox O2 Delivery O2 Flow Rate FiO2 02/25/18 10:56 106 16 35 02/25/18 08:38 109 16 35 02/25/18 08:18 35 02/25/18 08:00 98.2 106 14 94/56 100 Mechanical Ventilator 35 98.2 02/25/18 07:29 107 02/25/18 07:10 100 15 35 02/25/18 04:42 98 12 35 02/25/18 04:00 94 02/25/18 04:00 35 02/25/18 04:00 97.7 104 18 132/81 100 Mechanical Ventilator 35 97.7 02/25/18 03:18 99 13 35 02/25/18 01:19 104 14 35 02/25/18 00:00 98 02/25/18 00:00 97.3 111 14 110/73 97 Mechanical Ventilator 35 97.3 02/25/18 00:00 35 02/24/18 22:36 96 16 35 02/24/18 21:08 101 16 35 02/24/18 20:00 97.5 102 15 109/67 100 Mechanical Ventilator 35 97.5 02/24/18 20:00 35 02/24/18 19:26 94 14 35 02/24/18 19:14 91 02/24/18 16:53 100 14 35 02/24/18 16:00 35 02/24/18 16:00 99.7 100 14 123/79 100 Mechanical Ventilator 35 99.7 02/24/18 15:16 101 02/24/18 14:45 102 19 35 02/24/18 13:29 97.9 02/24/18 13:01 104 19 35 02/24/18 12:45 97.9 Intake and Output 02/24/18 02/25/18 19:00 07:00 Intake Total 485 ml 870 ml Output Total 500 ml 400 ml Balance -15 ml 470 ml Free Water 10 ml IV Total 385 ml 495 ml Tube Feeding 90 ml 345 ml Other 30 ml Output Urine Total 500 ml 400 ml # Bowel Movements 1 2 Laboratory Tests 02/25/18 04:40: White Blood Count 8.8, Red Blood Count 3.40L, Hemoglobin 10.0L, Hematocrit 31.4L , Mean Corpuscular Volume 92, Mean Corpuscular Hemoglobin 29.5, Mean Corpuscular Hemoglobin Concent 31.9L, Red Cell Distribution Width 15.0H, Platelet Count 496H, Mean Platelet Volume 6.5, Neutrophils (%) (Auto) 64.5, Lymphocytes (%) (Auto) 16.7L, Monocytes (%) (Auto) 8.8, Eosinophils (%) (Auto) 9.4H, Basophils (%) (Auto) 0.5, Sodium Level 144, Potassium Level 3.7, Chloride Level 109H, Carbon Dioxide Level 28, Anion Gap 7, Blood Urea Nitrogen 24H, Creatinine 1.0, Estimat Glomerular Filtration Rate > 60, Glucose Level 87, Calcium Level 8.9, Phosphorus Level 3.3, Magnesium Level 2.1, Total Bilirubin 0.3, Aspartate Amino Transf (AST/SGOT) 34, Alanine Aminotransferase (ALT/SGPT) 86H, Alkaline Phosphatase 145H, Total Protein 7.7, Albumin 1.7L, Globulin 6.0, Albumin/Globulin Ratio 0.3L Height (Feet): 5 Height (Inches): 11.00 Weight (Pounds): 132 General Appearance: no apparent distress Cardiovascular: tachycardia Respiratory/Chest: decreased breath sounds CRICKET MITCHELL Feb 25, 2018 12:04
[2018-02-25 16:16] VITALS: BP 95/62
[2018-02-25 20:00] VITALS: BP 105/55
--- NOTE | 2018-02-25 20:05 | Infectious Diseases Prog Note ---
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 ( due to contracted Ext. ) Purulent discharge from left hip. Rule out bacteremia. Ch transaminitis improving Hep C Ab + US : no sig findings Negative for gallstones or dilated ducts, Borderline gallbladder wall thickening, likely an artifact of under distention SP Staph bacteremia, ( SP 4 wks AB rx ) Hx of Pseudomonas urinary tract infection. no Evid of Pnuem SCx: GNR ( colonizer ) Cxray : NAPD VDRF Status post trach and percutaneous endoscopic gastrostomy. Dementia Seizure disorder. History of pacemaker placement. Hypertension. COPD. Diabetes. PLAN: Cont pt on IV Merrem d# 6 / 14 , and IV Vanco d# 3/ 7 ( empirically ) 02/20 SP vancomycin and Zosyn d#3 Monitor CBC Monitor BMP. Monitor cultures (blood ) Monitor chest x-ray. Continue vent support. Hep C up w as out pt Subjective Allergies: Coded Allergies: No Known Allergies (Unverified , 03/07/17) Subjective afebrile, non verbal Objective Vital Signs Last 24 Hour Vital Signs Date Time Temp Pulse Resp B/P (MAP) Pulse Ox O2 Delivery O2 Flow Rate FiO2 02/25/18 19:13 116 19 35 02/25/18 17:35 106 16 35 02/25/18 16:16 98.2 105 18 95/62 100 Mechanical Ventilator 35 98.2 02/25/18 16:00 35 02/25/18 15:36 101 02/25/18 14:48 105 17 35 02/25/18 12:20 108 16 35 02/25/18 12:00 98.1 112 15 103/69 100 Mechanical Ventilator 35 98.1 02/25/18 12:00 35 02/25/18 11:47 109 02/25/18 10:56 106 16 35 02/25/18 08:38 109 16 35 02/25/18 08:18 35 02/25/18 08:00 98.2 106 14 94/56 100 Mechanical Ventilator 35 98.2 4/11/18 07:29 107 02/25/18 07:10 100 15 35 02/25/18 04:42 98 12 35 02/25/18 04:00 94 02/25/18 04:00 35 02/25/18 04:00 97.7 104 18 132/81 100 Mechanical Ventilator 35 97.7 02/25/18 03:18 99 13 35 02/25/18 01:19 104 14 35 02/25/18 00:00 98 02/25/18 00:00 97.3 111 14 110/73 97 Mechanical Ventilator 35 97.3 02/25/18 00:00 35 02/24/18 22:36 96 16 35 02/24/18 21:08 101 16 35 Height (Feet): 5 Height (Inches): 11.00 Weight (Pounds): 132 HEENT: atraumatic Respiratory/Chest: no respiratory distress Cardiovascular: no gallop/murmur Abdomen: non distended Laboratory Tests Test 02/25/18 04:40 White Blood Count 8.8 K/UL (4.8-10.8) Red Blood Count 3.40 M/UL (4.70-6.10) L Hemoglobin 10.0 G/DL (14.2-18.0) L Hematocrit 31.4 % (42.0-52.0) L Mean Corpuscular Volume 92 FL (80-99) Mean Corpuscular Hemoglobin 29.5 PG (27.0-31.0) Mean Corpuscular Hemoglobin Concent 31.9 G/DL (32.0-36.0) L Red Cell Distribution Width 15.0 % (11.6-14.8) H Platelet Count 496 K/UL (150-450) H Mean Platelet Volume 6.5 FL (6.5-10.1) Neutrophils (%) (Auto) 64.5 % (45.0-75.0) Lymphocytes (%) (Auto) 16.7 % (20.0-45.0) L Monocytes (%) (Auto) 8.8 % (1.0-10.0) Eosinophils (%) (Auto) 9.4 % (0.0-3.0) H Basophils (%) (Auto) 0.5 % (0.0-2.0) Sodium Level 144 MMOL/L (136-145) Potassium Level 3.7 MMOL/L (3.5-5.1) Chloride Level 109 MMOL/L (98-107) H Carbon Dioxide Level 28 MMOL/L (21-32) Anion Gap 7 mmol/L (5-15) Blood Urea Nitrogen 24 mg/dL (7-18) H Creatinine 1.0 MG/DL (0.55-1.30) Estimat Glomerular Filtration Rate > 60 mL/min (>60) Glucose Level 87 MG/DL (74-106) Calcium Level 8.9 MG/DL (8.5-10.1) Phosphorus Level 3.3 MG/DL (2.5-4.9) Magnesium Level 2.1 MG/DL (1.8-2.4) Total Bilirubin 0.3 MG/DL (0.2-1.0) Aspartate Amino Transf (AST/SGOT) 34 U/L (15-37) Alanine Aminotransferase (ALT/SGPT) 86 U/L (12-78) H Alkaline Phosphatase 145 U/L (46-116) H Total Protein 7.7 G/DL (6.4-8.2) Albumin 1.7 G/DL (3.4-5.0) L Globulin 6.0 g/dL Albumin/Globulin Ratio 0.3 (1.0-2.7) L Current Medications Medications (Trade) Dose Ordered Sig/Tameka Route PRN Reason Start Time Stop Time Status Last Admin Dose Admin Acetaminophen (Tylenol) 650 mg Q4H PRN ORAL FEVER 02/16/18 23:15 03/18/18 23:14 02/23/18 22:40 Dextrose (Dextrose 50%) 25 ml STAT PRN IV HYPOGLYCEMIA 02/18/18 08:45 03/20/18 08:44 Dextrose (Dextrose 50%) 50 ml STAT PRN IV Hypoglycemia 02/18/18 08:45 03/18/18 23:14 Heparin Sodium (Porcine) (Heparin 5000 units/ml) 5,000 units EVERY 12 HOURS SUBQ 02/17/18 09:00 03/19/18 08:59 02/25/18 09:35 Levetiracetam (Keppra) 500 mg Q12HR GT 02/21/18 11:00 03/23/18 10:59 02/25/18 09:24 Lorazepam (Ativan 2mg/ml 1ml) 2 mg EVERY 2 HOURS PRN IV For Anxiety 02/24/18 12:30 03/03/18 12:29 Meropenem 1 gm/ Sodium Chloride 110 ml @ 220 mls/hr Q8HR IVPB 02/20/18 22:00 03/05/18 23:00 02/25/18 13:40 Morphine Sulfate (Morphine Sulfate) 4 mg Q4H PRN IVP Severe Pain (Pain Scale 7-10) 02/24/18 12:30 03/03/18 12:29 02/25/18 02:02 Ondansetron HCl (Zofran) 4 mg Q6H PRN IVP Nausea & Vomiting 02/16/18 23:15 03/18/18 23:14 Pantoprazole (Protonix) 40 mg DAILY IV 02/17/18 09:00 03/19/18 08:59 02/25/18 09:24 Polyethylene Glycol (Miralax) 17 gm DAILYPRN PRN ORAL Constipation 02/16/18 23:15 03/18/18 23:14 Vancomycin HCl (Vanco rx to dose) 1 ea DAILY PRN MISC Per rx protocol 02/23/18 18:15 03/25/18 18:14 Vancomycin HCl 500 mg/Dextrose 275 ml @ 275 mls/hr Q12HR IVPB 02/24/18 09:00 03/01/18 08:59 02/25/18 09:26 Jake Naqvi MD Feb 25, 2018 20:05
[2018-02-26] VITALS: BP 116/57
[2018-02-26 04:00] VITALS: BP 135/66
[2018-02-26 05:16] LABS: BASOPHILS % (AUTO) 0.5 % (0.0-2.0); HEMATOCRIT 32.8 % (42.0-52.0); HEMOGLOBIN 10.4 G/DL (14.2-18.0); LYMPHOCYTES % (AUTO) 22.1 % (20.0-45.0); MEAN CORPUSCULAR VOLUME 91 FL (80-99); MONOCYTES % (AUTO) 9.6 % (1.0-10.0); NEUTROPHILS % (AUTO) 59.7 % (45.0-75.0); PLATELET COUNT 473 K/UL (150-450); RED BLOOD COUNT 3.58 M/UL (4.70-6.10); RED CELL DISTRIBUTION WIDTH 14.8 % (11.6-14.8); WHITE BLOOD COUNT 9.2 K/UL (4.8-10.8)
[2018-02-26 05:26] LABS: ALANINE AMINOTRANSFERASE 67 U/L (12-78); ALBUMIN 1.7 G/DL (3.4-5.0); ALBUMIN/GLOBULIN RATIO 0.3 (1.0-2.7); ALKALINE PHOSPHATASE 165 U/L (46-116); ANION GAP 6 mmol/L (5-15); ASPARTATE AMINO TRANSFERASE 39 U/L (15-37); BILIRUBIN,TOTAL 0.2 MG/DL (0.2-1.0); BLOOD UREA NITROGEN 21 mg/dL (7-18); CARBON DIOXIDE 29 MMOL/L (21-32); CHLORIDE 110 MMOL/L (98-107); CREATININE 0.9 MG/DL (0.55-1.30); POTASSIUM 3.7 MMOL/L (3.5-5.1); SODIUM 145 MMOL/L (136-145)
[2018-02-26] MEDS: Meropenem 1 GM in NS 110 ML IVPB SCH ×2 (05:51→13:45)
[2018-02-26 08:00] VITALS: BP 128/54
[2018-02-26] MEDS ORDERED: Vancomycin 750mg/NS 250ml IVPB SCH (09:00)
[2018-02-26] MEDS: Pantoprazole Inj IV SCH (09:18)
[2018-02-26] MEDS: levETIRAcetam 500mg/5ml Liquid GT SCH (09:18)
[2018-02-26] MEDS: Heparin 5000 units/ml inj SUBQ SCH (09:21)
[2018-02-26] MEDS ORDERED: VANCO 1 GR1 GM/150 M IV (11:59)
[2018-02-26] MEDS ORDERED: INVANZ1 G1 IM (11:59)
[2018-02-26 12:00] VITALS: BP 105/75
--- NOTE | 2018-02-26 12:04 | Pulmonolgy Critical Care Note ---
Critical Care - Asmt/Plan Problems: (1) Chronic respiratory failure (2) Anemia (3) Atrial fibrillation (4) EF of 30 (5) Feeding by G-tube (6) Tracheostomy care (7) Transaminitis Respiratory: monitor respiratory rate, adjust FIO2, CXR Cardiac: continue pressors, continue to monitor HR/BP Renal: keep IV fluid Infectious Disease: check cultures Gastrointestinal: continue feedings/current rate Endocrine: monitor blood sugar, check HgA1C, continue sliding scale insulin Hematologic: transfuse if hgb<8.5 Neurologic: PRN Ativan, PRN Morphine, keep patient comfortable Prophylaxis: Protonix, Heparin Notes Reviewed: hvac designer, renal Discussed with: nurses, consultants, egg caserbakery manager - Objective Last 24 Hour Vital Signs Date Time Temp Pulse Resp B/P (MAP) Pulse Ox O2 Delivery O2 Flow Rate FiO2 02/26/18 11:05 119 22 35 02/26/18 08:58 112 24 35 02/26/18 08:00 35 02/26/18 08:00 100.0 115 14 128/54 99 Mechanical Ventilator 35 100.0 02/26/18 07:25 116 17 35 02/26/18 07:24 115 02/26/18 04:57 127 29 35 02/26/18 04:00 98.2 116 22 135/66 100 Mechanical Ventilator 35 98.2 02/26/18 04:00 35 02/26/18 04:00 113 02/26/18 03:00 115 18 35 02/26/18 01:05 117 17 35 02/26/18 00:00 110 02/26/18 00:00 35 02/26/18 00:00 98.1 109 18 116/57 99 Mechanical Ventilator 35 98.1 02/25/18 22:55 106 25 35 02/25/18 21:05 114 18 35 02/25/18 20:00 113 02/25/18 20:00 35 02/25/18 20:00 98.4 119 21 105/55 100 Mechanical Ventilator 35 98.4 02/25/18 19:13 116 19 35 02/25/18 17:35 106 16 35 02/25/18 16:16 98.2 105 18 95/62 100 Mechanical Ventilator 35 98.2 02/25/18 16:00 35 02/25/18 15:36 101 02/25/18 14:48 105 17 35 02/25/18 12:20 108 16 35 Status: awake Lungs: chest wall tender Heart: HR/BP stable, regular Abdomen: non-tender, feeding tube Extremities: edema Critical Care - Subjective ROS Limited/Unobtainable: No EKG Rhythm: Sinus Rhythm FI02: 35 Vent Support Breath Rate: 8 Vent Support Mode: IMV/SIMV Vent Tidal Volume: 600 Sputum Amount: Small PEEP: 5.0 PIP: 14 Tube Feeding Amount: 45 I&O: Intake and Output 02/25/18 02/26/18 19:00 07:00 Intake Total 1205 ml 865 ml Output Total 650 ml 500 ml Balance 555 ml 365 ml Free Water 100 ml IV Total 385 ml 220 ml Tube Feeding 540 ml 495 ml Other 180 ml 150 ml Output Urine Total 650 ml 500 ml # Bowel Movements 1 CXR: no change Labs: Laboratory Tests Test 02/25/18 19:50 02/26/18 04:00 Vancomycin Level Trough 22.9 ug/mL (5.0-12.0) H White Blood Count 9.2 K/UL (4.8-10.8) Red Blood Count 3.58 M/UL (4.70-6.10) L Hemoglobin 10.4 G/DL (14.2-18.0) L Hematocrit 32.8 % (42.0-52.0) L Mean Corpuscular Volume 91 FL (80-99) Mean Corpuscular Hemoglobin 29.1 PG (27.0-31.0) Mean Corpuscular Hemoglobin Concent 31.8 G/DL (32.0-36.0) L Red Cell Distribution Width 14.8 % (11.6-14.8) Platelet Count 473 K/UL (150-450) H Mean Platelet Volume 7.0 FL (6.5-10.1) Neutrophils (%) (Auto) 59.7 % (45.0-75.0) Lymphocytes (%) (Auto) 22.1 % (20.0-45.0) Monocytes (%) (Auto) 9.6 % (1.0-10.0) Eosinophils (%) (Auto) 8.0 % (0.0-3.0) H Basophils (%) (Auto) 0.5 % (0.0-2.0) Sodium Level 145 MMOL/L (136-145) Potassium Level 3.7 MMOL/L (3.5-5.1) Chloride Level 110 MMOL/L (98-107) H Carbon Dioxide Level 29 MMOL/L (21-32) Anion Gap 6 mmol/L (5-15) Blood Urea Nitrogen 21 mg/dL (7-18) H Creatinine 0.9 MG/DL (0.55-1.30) Estimat Glomerular Filtration Rate > 60 mL/min (>60) Glucose Level 122 MG/DL (74-106) H Calcium Level 9.0 MG/DL (8.5-10.1) Phosphorus Level 2.0 MG/DL (2.5-4.9) L Magnesium Level 2.2 MG/DL (1.8-2.4) Total Bilirubin 0.2 MG/DL (0.2-1.0) Aspartate Amino Transf (AST/SGOT) 39 U/L (15-37) H Alanine Aminotransferase (ALT/SGPT) 67 U/L (12-78) Alkaline Phosphatase 165 U/L (46-116) H Total Protein 7.9 G/DL (6.4-8.2) Albumin 1.7 G/DL (3.4-5.0) L Globulin 6.2 g/dL Albumin/Globulin Ratio 0.3 (1.0-2.7) L Shani Moses MD Feb 26, 2018 12:04
--- NOTE | 2018-02-26 12:40 | Nephrology Progress Note ---
Assessment/Plan Problem List: (1) Hypernatremia (2) Atrial fibrillation (3) Feeding by G-tube (4) Tracheostomy care Assessment Hypernatremia due to free water deficit improved Pressure ulcer, hip, left, unstageable Hypo albuminemia other (1) Chronic respiratory failure (2) Anemia (3) Atrial fibrillation (4) EF of 30 % reported- related Echo not found (5) Feeding by G-tube (6) Tracheostomy care (7) Transaminitis Plan Plan: stop lasix monitor lytes recheck echo Subjective ROS Limited/Unobtainable: No Constitutional: Reports: malaise Objective Objective Last 24 Hour Vital Signs Date Time Temp Pulse Resp B/P (MAP) Pulse Ox O2 Delivery O2 Flow Rate FiO2 02/26/18 11:35 112 02/26/18 11:05 119 22 35 02/26/18 08:58 112 24 35 02/26/18 08:00 35 02/26/18 08:00 100.0 115 14 128/54 99 Mechanical Ventilator 35 100.0 02/26/18 07:25 116 17 35 02/26/18 07:24 115 02/26/18 04:57 127 29 35 02/26/18 04:00 98.2 116 22 135/66 100 Mechanical Ventilator 35 98.2 02/26/18 04:00 35 02/26/18 04:00 113 02/26/18 03:00 115 18 35 02/26/18 01:05 117 17 35 02/26/18 00:00 110 02/26/18 00:00 35 02/26/18 00:00 98.1 109 18 116/57 99 Mechanical Ventilator 35 98.1 02/25/18 22:55 106 25 35 02/25/18 21:05 114 18 35 02/25/18 20:00 113 02/25/18 20:00 35 02/25/18 20:00 98.4 119 21 105/55 100 Mechanical Ventilator 35 98.4 02/25/18 19:13 116 19 35 02/25/18 17:35 106 16 35 02/25/18 16:16 98.2 105 18 95/62 100 Mechanical Ventilator 35 98.2 02/25/18 16:00 35 02/25/18 15:36 101 02/25/18 14:48 105 17 35 Intake and Output 02/25/18 02/26/18 19:00 07:00 Intake Total 1205 ml 865 ml Output Total 650 ml 500 ml Balance 555 ml 365 ml Free Water 100 ml IV Total 385 ml 220 ml Tube Feeding 540 ml 495 ml Other 180 ml 150 ml Output Urine Total 650 ml 500 ml # Bowel Movements 1 Laboratory Tests 02/25/18 19:50: Vancomycin Level Trough 22.9H 02/26/18 04:00: White Blood Count 9.2, Red Blood Count 3.58L, Hemoglobin 10.4L, Hematocrit 32.8L , Mean Corpuscular Volume 91, Mean Corpuscular Hemoglobin 29.1, Mean Corpuscular Hemoglobin Concent 31.8L, Red Cell Distribution Width 14.8, Platelet Count 473H, Mean Platelet Volume 7.0, Neutrophils (%) (Auto) 59.7, Lymphocytes (%) (Auto) 22.1, Monocytes (%) (Auto) 9.6, Eosinophils (%) (Auto) 8.0H, Basophils (%) (Auto) 0.5, Sodium Level 145, Potassium Level 3.7, Chloride Level 110H, Carbon Dioxide Level 29, Anion Gap 6, Blood Urea Nitrogen 21H, Creatinine 0.9, Estimat Glomerular Filtration Rate > 60, Glucose Level 122H, Calcium Level 9.0, Phosphorus Level 2.0L, Magnesium Level 2.2, Total Bilirubin 0.2, Aspartate Amino Transf (AST/SGOT) 39H, Alanine Aminotransferase (ALT/SGPT) 67, Alkaline Phosphatase 165H, Total Protein 7.9, Albumin 1.7L, Globulin 6.2, Albumin/Globulin Ratio 0.3L Height (Feet): 5 Height (Inches): 11.00 Weight (Pounds): 138 General Appearance: no apparent distress Cardiovascular: tachycardia Respiratory/Chest: decreased breath sounds Abdomen: soft CRICKET MITCHELL Feb 26, 2018 12:40
[2018-02-26 16:00] VITALS: BP 109/70
--- NOTE | 2018-02-26 17:58 | Infectious Diseases Prog Note ---
Assessment/Plan Assessment/Plan ASSESSMENT: The patient is a 58-year-old male with, leukocytosis, SP Fever low grade Sepsis, SP Multiple infected lower extremity decubitus, improving, , can not ro Osteo , WndC x: MDR Providencia (+ skin colonizer ) surg : does not recommend I/D due pt clinical condition Bone scan limited for eval of osteomyelitis. ( due to contracted Ext. ) Purulent discharge from left hip. Rule out bacteremia. Ch transaminitis improving Hep C Ab + US : no sig findings Negative for gallstones or dilated ducts, Borderline gallbladder wall thickening, likely an artifact of under distention SP Staph bacteremia, ( SP 4 wks AB rx ) Hx of Pseudomonas urinary tract infection. no Evid of Pnuem SCx: MDR-PSA ( colonizer ) Cxray : NAPD C Diff : Neg VDRF Status post trach and percutaneous endoscopic gastrostomy. Dementia Seizure disorder. History of pacemaker placement. Hypertension. COPD. Diabetes. PLAN: Cont pt on IV Merrem d# / , and IV Vanco d# 4 / ( empirically ) 02/20 SP vancomycin and Zosyn d#3 Monitor CBC Monitor BMP. Monitor cultures (blood ) Monitor chest x-ray. Continue vent support. Hep C up w as out pt 2DEcho Subjective Allergies: Coded Allergies: No Known Allergies (Unverified , 03/07/17) Subjective afebrile, non verbal Objective Vital Signs Last 24 Hour Vital Signs Date Time Temp Pulse Resp B/P (MAP) Pulse Ox O2 Delivery O2 Flow Rate FiO2 02/26/18 16:00 110 02/26/18 16:00 35 02/26/18 16:00 98.1 110 20 109/70 100 Mechanical Ventilator 35 98.1 02/26/18 15:24 108 17 35 02/26/18 13:25 111 19 35 02/26/18 12:00 35 02/26/18 12:00 98.1 114 26 105/75 98 Mechanical Ventilator 35 98.1 02/26/18 11:35 112 02/26/18 11:05 119 22 35 02/26/18 08:58 112 24 35 02/26/18 08:00 35 02/26/18 08:00 100.0 115 14 128/54 99 Mechanical Ventilator 35 100.0 02/26/18 07:25 116 17 35 02/26/18 07:24 115 02/26/18 04:57 127 29 35 02/26/18 04:00 98.2 116 22 135/66 100 Mechanical Ventilator 35 98.2 02/26/18 04:00 35 02/26/18 04:00 113 02/26/18 03:00 115 18 35 02/26/18 01:05 117 17 35 02/26/18 00:00 110 02/26/18 00:00 35 02/26/18 00:00 98.1 109 18 116/57 99 Mechanical Ventilator 35 98.1 02/25/18 22:55 106 25 35 02/25/18 21:05 114 18 35 02/25/18 20:00 113 02/25/18 20:00 35 02/25/18 20:00 98.4 119 21 105/55 100 Mechanical Ventilator 35 98.4 02/25/18 19:13 116 19 35 Height (Feet): 5 Height (Inches): 11.00 Weight (Pounds): 138 HEENT: anicteric Respiratory/Chest: normal breath sounds Cardiovascular: regular rhythm Abdomen: normal bowel sounds Microbiology Date/Time Source Procedure Growth Status 02/26/18 00:09 Stool Clostridium difficile Toxin Assay - Final Complete Laboratory Tests Test 02/25/18 19:50 02/26/18 04:00 Vancomycin Level Trough 22.9 ug/mL (5.0-12.0) H White Blood Count 9.2 K/UL (4.8-10.8) Red Blood Count 3.58 M/UL (4.70-6.10) L Hemoglobin 10.4 G/DL (14.2-18.0) L Hematocrit 32.8 % (42.0-52.0) L Mean Corpuscular Volume 91 FL (80-99) Mean Corpuscular Hemoglobin 29.1 PG (27.0-31.0) Mean Corpuscular Hemoglobin Concent 31.8 G/DL (32.0-36.0) L Red Cell Distribution Width 14.8 % (11.6-14.8) Platelet Count 473 K/UL (150-450) H Mean Platelet Volume 7.0 FL (6.5-10.1) Neutrophils (%) (Auto) 59.7 % (45.0-75.0) Lymphocytes (%) (Auto) 22.1 % (20.0-45.0) Monocytes (%) (Auto) 9.6 % (1.0-10.0) Eosinophils (%) (Auto) 8.0 % (0.0-3.0) H Basophils (%) (Auto) 0.5 % (0.0-2.0) Sodium Level 145 MMOL/L (136-145) Potassium Level 3.7 MMOL/L (3.5-5.1) Chloride Level 110 MMOL/L (98-107) H Carbon Dioxide Level 29 MMOL/L (21-32) Anion Gap 6 mmol/L (5-15) Blood Urea Nitrogen 21 mg/dL (7-18) H Creatinine 0.9 MG/DL (0.55-1.30) Estimat Glomerular Filtration Rate > 60 mL/min (>60) Glucose Level 122 MG/DL (74-106) H Calcium Level 9.0 MG/DL (8.5-10.1) Phosphorus Level 2.0 MG/DL (2.5-4.9) L Magnesium Level 2.2 MG/DL (1.8-2.4) Total Bilirubin 0.2 MG/DL (0.2-1.0) Aspartate Amino Transf (AST/SGOT) 39 U/L (15-37) H Alanine Aminotransferase (ALT/SGPT) 67 U/L (12-78) Alkaline Phosphatase 165 U/L (46-116) H Total Protein 7.9 G/DL (6.4-8.2) Albumin 1.7 G/DL (3.4-5.0) L Globulin 6.2 g/dL Albumin/Globulin Ratio 0.3 (1.0-2.7) L Current Medications Medications (Trade) Dose Ordered Sig/Tameka Route PRN Reason Start Time Stop Time Status Last Admin Dose Admin Acetaminophen (Tylenol) 650 mg Q4H PRN ORAL FEVER 02/16/18 23:15 03/18/18 23:14 02/23/18 22:40 Dextrose (Dextrose 50%) 25 ml STAT PRN IV HYPOGLYCEMIA 02/18/18 08:45 03/20/18 08:44 Dextrose (Dextrose 50%) 50 ml STAT PRN IV Hypoglycemia 02/18/18 08:45 03/18/18 23:14 Heparin Sodium (Porcine) (Heparin 5000 units/ml) 5,000 units EVERY 12 HOURS SUBQ 02/17/18 09:00 03/19/18 08:59 02/26/18 09:21 Levetiracetam (Keppra) 500 mg Q12HR GT 02/21/18 11:00 03/23/18 10:59 02/26/18 09:18 Lorazepam (Ativan 2mg/ml 1ml) 2 mg EVERY 2 HOURS PRN IV For Anxiety 02/24/18 12:30 03/03/18 12:29 Meropenem 1 gm/ Sodium Chloride 110 ml @ 220 mls/hr Q8HR IVPB 02/20/18 22:00 03/05/18 23:00 02/26/18 13:45 Morphine Sulfate (Morphine Sulfate) 4 mg Q4H PRN IVP Severe Pain (Pain Scale 7-10) 02/24/18 12:30 03/03/18 12:29 02/25/18 02:02 Ondansetron HCl (Zofran) 4 mg Q6H PRN IVP Nausea & Vomiting 02/16/18 23:15 03/18/18 23:14 Pantoprazole (Protonix) 40 mg DAILY IV 02/17/18 09:00 03/19/18 08:59 02/26/18 09:18 Polyethylene Glycol (Miralax) 17 gm DAILYPRN PRN ORAL Constipation 02/16/18 23:15 03/18/18 23:14 Vancomycin HCl (Vanco rx to dose) 1 ea DAILY PRN MISC Per rx protocol 02/23/18 18:15 03/25/18 18:14 Vancomycin/Sodium Chloride 250 ml @ 166.667 mls/hr Q24H IVPB 02/26/18 09:00 03/03/18 08:59 02/26/18 09:18 Jake Naqvi MD Feb 26, 2018 17:58
--- NOTE | 2018-02-26 20:55 | General Progress Note ---
Assessment/Plan Assessment/Plan #. Leukocytosis, likely secondary to infectious process from before, --> currently getting antibiotic vancomycin. --> Levels downtrending. --> Monitor for improvement. #. Anemia due to underlying chronic disease. --> Hemoglobin goal is above 7. --> Continue to closely monitor and trend cbc. --> It appears to be anemia secondary to chronic disease. --> The patient is currently debilitated, bedbound status. --> Hemoglobin levels have been stable. #. DVT Prophylaxis. --> On heparin #. Multiple infected decubitus ulceration, rule out osteomyelitis. #. Sepsis, currently being treated. #. Chronic vent-dependant respiratory failure. --> S/P tracheostomy #. Dysphagia, status post percutaneous endoscopic gastrostomy. #. Generalized weakness and anemia. #. Seizure disorder --> On keppra #. Atrial fibrillation. --> Hx of pacemaker placement. --> Tachycardia #. Hypertension. #. Encephalopathy. --> Pt with dementia Subjective Date patient seen: Feb 25, 2018 Constitutional: Denies: no symptoms, chills, diaphoresis, fever, malaise, weakness, other HEENT: Denies: no symptoms, eye pain, blurred vision, tearing, double vision, ear pain, ear discharge, nose pain, nose congestion, throat pain, throat swelling, mouth pain, mouth swelling, other Cardiovascular: Denies: no symptoms, chest pain, edema, irregular heart rate, lightheadedness, palpitations, syncope, other Respiratory: Denies: no symptoms, cough, orthopnea, shortness of breath, SOB with excertion, SOB at rest, sputum, stridor, wheezing, other Gastrointestinal/Abdominal: Denies: no symptoms, abdomen distended, abdominal pain, black stools, tarry stools, blood in stool, constipated, diarrhea, difficulty swallowing, nausea, poor appetite, poor fluid intake, rectal bleeding , vomiting, other Genitourinary: Denies: no symptoms, burning, discharge, frequency, flank pain, hematuria, incontinence, pain, urgency, other 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: Denies: no symptoms, anxiety, depressed, emotional problems, headache, numbness, paresthesia, pre-existing deficit, seizure, tingling, tremors, weakness, other Hematologic/Lymphatic: Reports: anemia Allergies: Coded Allergies: No Known Allergies (Unverified , 03/07/17) Subjective Leukocytosis improved. On abx treatment. Tachycardic Objective Last 24 Hour Vital Signs Date Time Temp Pulse Resp B/P (MAP) Pulse Ox O2 Delivery O2 Flow Rate FiO2 02/26/18 17:28 99 17 35 02/26/18 16:00 110 02/26/18 16:00 35 02/26/18 16:00 98.1 110 20 109/70 100 Mechanical Ventilator 35 98.1 02/26/18 15:24 108 17 35 02/26/18 13:25 111 19 35 02/26/18 12:00 35 02/26/18 12:00 98.1 114 26 105/75 98 Mechanical Ventilator 35 98.1 02/26/18 11:35 112 02/26/18 11:05 119 22 35 02/26/18 08:58 112 24 35 02/26/18 08:00 35 02/26/18 08:00 100.0 115 14 128/54 99 Mechanical Ventilator 35 100.0 02/26/18 07:25 116 17 35 02/26/18 07:24 115 02/26/18 04:57 127 29 35 02/26/18 04:00 98.2 116 22 135/66 100 Mechanical Ventilator 35 98.2 02/26/18 04:00 35 02/26/18 04:00 113 02/26/18 03:00 115 18 35 02/26/18 01:05 117 17 35 02/26/18 00:00 110 02/26/18 00:00 35 02/26/18 00:00 98.1 109 18 116/57 99 Mechanical Ventilator 35 98.1 02/25/18 22:55 106 25 35 02/25/18 21:05 114 18 35 Intake and Output 02/25/18 02/26/18 19:00 07:00 Intake Total 1205 ml 865 ml Output Total 650 ml 500 ml Balance 555 ml 365 ml Free Water 100 ml IV Total 385 ml 220 ml Tube Feeding 540 ml 495 ml Other 180 ml 150 ml Output Urine Total 650 ml 500 ml # Bowel Movements 1 Laboratory Tests 02/26/18 04:00: White Blood Count 9.2, Red Blood Count 3.58L, Hemoglobin 10.4L, Hematocrit 32.8L , Mean Corpuscular Volume 91, Mean Corpuscular Hemoglobin 29.1, Mean Corpuscular Hemoglobin Concent 31.8L, Red Cell Distribution Width 14.8, Platelet Count 473H, Mean Platelet Volume 7.0, Neutrophils (%) (Auto) 59.7, Lymphocytes (%) (Auto) 22.1, Monocytes (%) (Auto) 9.6, Eosinophils (%) (Auto) 8.0H, Basophils (%) (Auto) 0.5, Sodium Level 145, Potassium Level 3.7, Chloride Level 110H, Carbon Dioxide Level 29, Anion Gap 6, Blood Urea Nitrogen 21H, Creatinine 0.9, Estimat Glomerular Filtration Rate > 60, Glucose Level 122H, Calcium Level 9.0, Phosphorus Level 2.0L, Magnesium Level 2.2, Total Bilirubin 0.2, Aspartate Amino Transf (AST/SGOT) 39H, Alanine Aminotransferase (ALT/SGPT) 67, Alkaline Phosphatase 165H, Total Protein 7.9, Albumin 1.7L, Globulin 6.2, Albumin/Globulin Ratio 0.3L Height (Feet): 5 Height (Inches): 11.00 Weight (Pounds): 138 General Appearance: confused Cardiovascular: tachycardia Venancio James MD Feb 26, 2018 20:55
--- NOTE | 2018-02-27 15:05 | Discharge Summary ---
Discharge Summary Discharge Summary Discharge Summary DATE OF ADMISSION: 02/16/2018 DATE OF DISCHARGE: 02/26/2018 CONSULTANTS: Dr. Sanjay James BRIEF HOSPITAL COURSE: Patient is a 58-year-old male with medical history of chronic trach, PEG, severe cardiomyopathy presented from nursing facility due to generalized weakness and anemia. On evaluation at ED, hemoglobin was 8.8 hematocrit was 28. He was placed on ventilator and was admitted for evaluation of anemia and possible GI bleed. Hemoglobin dropped to 7.8 and was given 2 units packed RBC blood transfusion. Blood levels improved post transfusion. Anemia was secondary to underlying chronic disease. He had foul smelling and deep decubitus ulcers with drainage, surgery was called to evaluate. He had a large decubitus ulcer on right hip, sacrum, left hip and in between. The left hip ulcer goes down to the bone. He had complex wound, and was given wound care and frequent repositioning. He was started empirically on vancomycin and Zosyn. Incision and drainage not recommended should the patient's overall clinical condition. Bone scan was done to evaluate for osteomyelitis however, exam was limited due to contracted extremities. Venous duplex was negative for DVT. He had hypernatremia, possibly due to free water deficit. He was given IV fluids and Lasix. Hypernatremia improved, Lasix was discontinued. He had elevated liver transaminases, abdominal ultrasound was without any significant findings, negative for gallstones or dilated ducts. There was borderline gallbladder wall thickening, likely an artifact or underdistention. Wound culture with growth of probably dementia and usual skin vianey, possibly colonizer, sputum culture with Pseudomonas MDR, colonizer. C. difficile was negative. Blood culture did not isolate any growth. He was given meropenem and vancomycin. FINAL DIAGNOSES: Sepsis Multiple infected decubitus pressure ulcer stage IV, present on admission Transaminitis Hypernatremia Drop in hemoglobin requiring blood transfusion Anemia of chronic disease Vent dependent respiratory failure Status post shake and PEG Dementia Seizure disorder History of pacemaker placement Hypertension COPD Diabetes Atrial fibrillation Hypoalbuminemia DISPOSITION: Patient was discharged back to [facility] DISCHARGE MEDICATIONS: Refer to Discharge Medication List. Continue with Invanz and vancomycin for 4 more days. I have been assigned to dictate discharge summary on this account, and I was not involved in the patient's management. Miriam Lazo NP Feb 27, 2018 15:05
--- NOTE | 2018-02-27 22:44 | General Progress Note ---
Assessment/Plan Assessment/Plan #. Leukocytosis, likely secondary to infectious process from before, --> currently getting antibiotic vancomycin. --> Levels downtrending. --> Monitor for improvement. #. Anemia due to underlying chronic disease. --> Hemoglobin goal is above 7. --> Continue to closely monitor and trend cbc. --> It appears to be anemia secondary to chronic disease. --> The patient is currently debilitated, bedbound status. --> Hemoglobin levels have been stable. #. DVT Prophylaxis. --> On heparin #. Multiple infected decubitus ulceration, rule out osteomyelitis. #. Sepsis, currently being treated. #. Chronic vent-dependant respiratory failure. --> S/P tracheostomy #. Dysphagia, status post percutaneous endoscopic gastrostomy. #. Generalized weakness and anemia. #. Seizure disorder --> On keppra #. Atrial fibrillation. --> Hx of pacemaker placement. --> Tachycardia #. Hypertension. #. Encephalopathy. --> Pt with dementia Subjective Date patient seen: Feb 26, 2018 Constitutional: Denies: no symptoms, chills, diaphoresis, fever, malaise, weakness, other HEENT: Denies: no symptoms, eye pain, blurred vision, tearing, double vision, ear pain, ear discharge, nose pain, nose congestion, throat pain, throat swelling, mouth pain, mouth swelling, other Cardiovascular: Denies: no symptoms, chest pain, edema, irregular heart rate, lightheadedness, palpitations, syncope, other Respiratory: Denies: no symptoms, cough, orthopnea, shortness of breath, SOB with excertion, SOB at rest, sputum, stridor, wheezing, other Gastrointestinal/Abdominal: Denies: no symptoms, abdomen distended, abdominal pain, black stools, tarry stools, blood in stool, constipated, diarrhea, difficulty swallowing, nausea, poor appetite, poor fluid intake, rectal bleeding , vomiting, other Genitourinary: Denies: no symptoms, burning, discharge, frequency, flank pain, hematuria, incontinence, pain, urgency, other 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: Denies: no symptoms, anxiety, depressed, emotional problems, headache, numbness, paresthesia, pre-existing deficit, seizure, tingling, tremors, weakness, other Hematologic/Lymphatic: Reports: anemia Allergies: Coded Allergies: No Known Allergies (Unverified , 03/07/17) Subjective On vent. No fever. Confused. Objective Intake and Output 02/26/18 02/27/18 19:00 07:00 Intake Total 45 ml Output Total 450 ml Balance -405 ml Tube Feeding 45 ml Output Urine Total 450 ml # Bowel Movements 1 Height (Feet): 5 Height (Inches): 11.00 Weight (Pounds): 138 General Appearance: confused Respiratory/Chest: decreased breath sounds Venancio James MD Feb 27, 2018 22:44
--- NOTE | 2018-03-02 21:21 | Cardiology Report ---
APPROVED REPORT EXAM: Two-dimensional and M-mode echocardiogram with Doppler and color Doppler. INDICATION Congestive Heart Failure M-Mode DIMENSIONS IVSd1.3 (0.7-1.1cm)Left Atrium (MM)2.2 (1.6-4.0cm) LVDd4.3 (3.5-5.6cm)Aortic Root2.4 (2.0-3.7cm) PWd1.6 (0.7-1.1cm)Aortic Cusp Exc.1.6 (1.5-2.0cm) IVSs1.8 cm LVDs3.0 (2.5-4.0cm) PWs1.7 cm arms. Normal left ventricular chamber size, heyper systolic function and wall motion to extent visualized. Left ventricular ejection fraction estimated to be 60 %. Study quality precludes accurate assessment of regional wall motion. No evidence left ventricular hypertrophy. No evidence of pericardial effusion. All other cardiac chambers appear to be within normal limits. Focal aortic valve sclerosis with adequate cusp excursion. Moderately Thickened mitral valve leaflets with normal excursion. Heavily annulus and aortic root calcification. Pulmonic valve not well visualized. Valvular study not we visualized . IVC at normal size without physiologic collapse. Pacemaker wire present in the right side chambers. A color flow and spectral Doppler study was performed and revealed: No aortic regurgitation. Trace mitral regurgitation. Left ventricular diastolic function can not be well determined. Trace tricuspid regurgitation. Tricuspid systolic velocities suggests peak right ventricular systolic pressure of 16 mmHg No Pulmonic regurgitation present.
== END 2018-02-26 18:45 | DRG 720 ==
LOC: EDBD 22:49 → EMR 23:09 → 2W 23:48 → EDBEDREQ 02-17 01:06
PROC: 5A1955Z Respiratory Ventilation, Greater than 96 Consecutive Hours (ICD-10-PCS; 2018-02-16)
PROC: 30233N1 Transfusion of Nonautologous Red Blood Cells into Peripheral Vein, Percutaneous Approach (ICD-10-PCS; principal; 2018-02-17)
DX: A41.9 Sepsis, unspecified organism (principal); G93.40 Encephalopathy, unspecified; L89.154 Pressure ulcer of sacral region, stage 4; L89.214 Pressure ulcer of right hip, stage 4; Z99.11 Dependence on respirator [ventilator] status; J96.10 Chronic respiratory failure, unspecified whether with hypoxia or hypercapnia; E87.0 Hyperosmolality and hypernatremia; L89.220 Pressure ulcer of left hip, unstageable; Z93.0 Tracheostomy status; I42.9 Cardiomyopathy, unspecified; F03.90 Unspecified dementia, unspecified severity, without behavioral disturbance, psychotic disturbance, mood disturbance, and anxiety; D64.9 Anemia, unspecified; Z93.1 Gastrostomy status; M86.9 Osteomyelitis, unspecified; E11.9 Type 2 diabetes mellitus without complications; R71.0 Precipitous drop in hematocrit; Z95.810 Presence of automatic (implantable) cardiac defibrillator; I48.91 Unspecified atrial fibrillation; G40.909 Epilepsy, unspecified, not intractable, without status epilepticus; I10 Essential (primary) hypertension; J44.9 Chronic obstructive pulmonary disease, unspecified; E88.09 Other disorders of plasma-protein metabolism, not elsewhere classified
CPT/HCPCS: 36415; 71045; 76700; 78315; 80053; 80069; 80202; 82550; 82553; 83735; 83880; 84100; 84484; 84550; 85007; 85025; 85610; 85651; 85730; 86850; 86900; 86901; 86920; 87040; 87070; 87081; 87086; 87181; 87205; 87324; 93005; 93306; 93970; 94002; 94003; 99285

== ENCOUNTER 2018-04-17 13:22 | Inpatient (IN) | payer OTHER ==
[~2018-04-17] VITALS: Ht 172.7 cm; Wt 59.0 kg
[~2018-04-17 13:22] MED LIST changes: +ACETAMINOPHEN325 M1 GT; +AMIODARONE HCL400 M1 GT; +FOLIC ACID1 MG GT; +INVANZ1 G1 IM; +NITROFURANTOIN100 MG GT; +VANCO 1 GR1 GM/150 M IV; +ZINC SULFATE220 M1 GT
[2018-04-17 13:23] VITALS: BP 115/77
[2018-04-17] MEDS ORDERED: NS 1000ml 1,900 ML IVLG ONE (13:45)
[2018-04-17] MEDS ORDERED: Vancomycin 1 GM in NS 275 ML IV ONE (13:45)
[2018-04-17] MEDS ORDERED: Piperacillin/Tazobactam 3.375 GM in D5W 55 ML IV SCH (14:00)
--- NOTE | 2018-04-17 14:09 | Emergency Room Report ---
History of Present Illness General Chief Complaint: Abnormal Labs Source: Patient, Medical Record Present Illness Allergies: Coded Allergies: No Known Allergies (Unverified , 03/07/17) Patient History Limited by: medical condition Past Medical History: see triage record Reviewed Nursing Documentation: PMH: Agreed; PSxH: Agreed Nursing Documentation-PMH Past Medical History: No History, Except For Hx Cardiac Problems: Yes - Afib; Cardiomyapathy. rheumatic tricuspid valve disease Hx Hypertension: Yes - Anemia, vtach, hypotension Hx Pacemaker: Yes - Defibrillator implant Hx COPD: Yes - Resp failure, vent dep.. PNA, acidosis, sepsis, proteinuria Hx Diabetes: No - Failure to thrive Hx Cancer: No - Sepsis Hx Gastrointestinal Problems: Yes - GT; Cirrhosis, dysphagia, tracheostomy, GERD, cirrhosis, ascites Hx Neurological Problems: Yes - ENCEPHALOPATHY, muscle weakness, Hx Cerebrovascular Accident: Yes - breakdown of cardiac pulse generator ( battery) Hx Transient Ischemic Attacks: Yes Hx Dementia: Yes Hx Seizures: Yes Physical Exam Vital Signs Date Time Temp Pulse Resp B/P (MAP) Pulse Ox O2 Delivery O2 Flow Rate FiO2 04/17/18 13:17 99.2 101 18 115/77 100 Mechanical Ventilator 99.1 Sp02 EP Interpretation: reviewed, normal - febrile, but normal O2 sat for patient General Appearance: alert, cachetic, Chronically Ill Head: normocephalic Eyes: bilateral eye normal inspection, bilateral eye PERRL, bilateral eye EOMI ENT: normal ENT inspection, no angioedema, dry mucus membranes Neck: normal inspection, supple, supple/symm/no masses, other - normal tracheostomy site Respiratory: chest non-tender - L chest wall ICD site c/d/i no warmth or skin breakdown, decreased breath sounds, chest symmetrical, palpation of chest normal Cardiovascular #1: normal peripheral pulses, regular rate, rhythm, tachycardia Cardiovascular #2: 2+ radial (R), 2+ radial (L) Gastrointestinal: normal inspection, non tender - difficult to assess but possibly tender, soft, no mass, no guarding, no rebound, distended, other - L sided PEG tube site intact Rectal: heme negative stool Genitourinary: normal inspection, no CVA tenderness Musculoskeletal: back normal, gait/station normal, normal range of motion, non- tender, no calf tenderness Neurologic: alert, responsive - tracks my finger with both eyes Psychiatric: judgement/insight normal, memory normal, mood/affect normal, no suicidal/homicidal ideation Skin: normal color, warm/dry, normal turgor, other - multiple decubitus ulcers , foul odor to R hip ulcer Lymphatic: no adenopathy Medical Decision Making Diagnostic Impression: Primary Impression: Sepsis ER Course Patient here for fever and abnormal labs, including leukocytosis and elevated BUN, patient is difficult to obtain history from as he is nonverbal however he does track my eyes with his finger and closes his eyes tightly when I examine his abdomen, so we'll obtain a CT of his abdomen and pelvis to evaluate for further pathology. He was treated initially with a sepsis protocol including 30 mL/kg IV fluids, blood cultures, lactic acid, broad-spectrum antibiotics. EKG Diagnostic Results EKG Time: 13:54 EP Interpretation: no st-t changes, no TWI's Rate: tachycardiac Rhythm: NSR ST Segments: no acute changes ASA given to the pt in ED: Yes Rhythm Strip Diag. Results Rhythm Strip Time: 13:57 EP Interpretation: yes Rate: 106 Rhythm: NSR, no PVC's, no ectopy Chest X-Ray Diagnostic Results Chest X-Ray Diagnostic Results : Chest X-Ray Ordered: Yes # of Views/Limited/Complete: 1 View Indication: Other EP Interpretation: Yes Interpretation: no effusion, no pneumothorax, other - possible RUL consolidation Impression: Other - RUL consolidation Electronically Signed by: Felecia Salazar MD CT/MRI/US Diagnostic Results CT/MRI/US Diagnostic Results : Imaging Test Ordered: ct abd/pelvis Reevaluation Time: 14:55 Last Vital Signs Date Time Temp Pulse Resp B/P (MAP) Pulse Ox O2 Delivery O2 Flow Rate FiO2 04/17/18 13:23 99.1 72 18 115/77 100 Mechanical Ventilator 99.1 Status: improved Disposition: ADMITTED INPATIENT Condition: Stable Signed Out To: Dr. Box, pending ct abd/pelvis FELECIA SALAZAR M.D Apr 17, 2018 14:09
--- NOTE | 2018-04-17 14:10 | Emergency Room Report ---
Sepsis Event Note Evaluation Current Stage of Sepsis: Sepsis Possible Source: Pulmonary, Skin/Soft Tissue, Wound Focused Exam Allergies: Coded Allergies: No Known Allergies (Unverified , 03/07/17) Date Exam Occurred: Apr 17, 2018 Time Exam Occurred: 14:10 Laboratory Studies Laboratory Tests Test 04/17/18 13:58 White Blood Count Pending Red Blood Count Pending Hemoglobin Pending Hematocrit Pending Mean Corpuscular Volume Pending Mean Corpuscular Hemoglobin Pending Mean Corpuscular Hemoglobin Concent Pending Red Cell Distribution Width Pending Platelet Count Pending Mean Platelet Volume Pending Neutrophils (%) (Auto) Pending Lymphocytes (%) (Auto) Pending Monocytes (%) (Auto) Pending Eosinophils (%) (Auto) Pending Basophils (%) (Auto) Pending Prothrombin Time Pending Prothromb Time International Ratio Pending Activated Partial Thromboplast Time Pending Sodium Level Pending Potassium Level Pending Chloride Level Pending Carbon Dioxide Level Pending Blood Urea Nitrogen Pending Creatinine Pending Estimat Glomerular Filtration Rate Pending Glucose Level Pending Lactic Acid Level Pending Calcium Level Pending Magnesium Level Pending Total Bilirubin Pending Aspartate Amino Transf (AST/SGOT) Pending Alanine Aminotransferase (ALT/SGPT) Pending Alkaline Phosphatase Pending Total Creatine Kinase Pending Creatine Kinase MB Pending Troponin I Pending Total Protein Pending Albumin Pending Globulin Pending Vital Signs Last 24 Hour Vital Signs Date Time Temp Pulse Resp B/P (MAP) Pulse Ox O2 Delivery O2 Flow Rate FiO2 04/17/18 13:30 103 26 34 04/17/18 13:30 103 23 Mechanical Ventilator 34 04/17/18 13:23 99.1 72 18 115/77 100 Mechanical Ventilator 99.1 04/17/18 13:17 99.2 101 18 115/77 100 Mechanical Ventilator 99.1 Respiratory Exam: Mechanically Ventilated Cardiovascular Exam: RRR, S1, S2 Capillary Refill: Less Than 2 Seconds Peripheral Pulse: Strong Pulse Location: Carotid Skin Exam: Normal FELECIA Cartwright M.D Apr 17, 2018 14:10
[2018-04-17 14:12] LABS: HEMATOCRIT 23.8 % (42.0-52.0); MEAN CORPUSCULAR VOLUME 91 FL (80-99); PLATELET COUNT 459 K/UL (150-450); RED BLOOD COUNT 2.61 M/UL (4.70-6.10); RED CELL DISTRIBUTION WIDTH 16.1 % (11.6-14.8); WHITE BLOOD COUNT 14.6 K/UL (4.8-10.8)
[2018-04-17 14:28] LABS: ANION GAP 8 mmol/L (5-15); BLOOD UREA NITROGEN 27 mg/dL (7-18); CALCIUM 8.9 MG/DL (8.5-10.1); CARBON DIOXIDE 27 MMOL/L (21-32); CHLORIDE 114 MMOL/L (98-107); CREATININE 0.8 MG/DL (0.55-1.30); INR 1.1 (0.9-1.1); POTASSIUM 3.1 MMOL/L (3.5-5.1); SODIUM 149 MMOL/L (136-145)
--- NOTE | 2018-04-17 14:29 | Diagnostic Imaging Report ---
Indication: Cough Comparison: 02/23/2018 A single view chest radiograph was obtained. Findings: Tracheostomy noted. There is a pacemaker on the left. Heart size is normal. Lungs are clear. Bones are unremarkable. IMPRESSION: No acute disease
[2018-04-17 14:41] LABS: ALANINE AMINOTRANSFERASE 33 U/L (12-78); ALBUMIN 1.3 G/DL (3.4-5.0); ALBUMIN/GLOBULIN RATIO 0.2 (1.0-2.7); ALKALINE PHOSPHATASE 118 U/L (46-116); ASPARTATE AMINO TRANSFERASE 20 U/L (15-37); BILIRUBIN,TOTAL 0.2 MG/DL (0.2-1.0); CKMB 1.8 NG/ML (0.0-3.6); CREATINE KINASE 67 U/L (26-308)
[2018-04-17] MEDS ORDERED: Isovue-300 100ml vial INJ PRN (14:45)
[2018-04-17 15:38] VITALS: BP 115/99
--- NOTE | 2018-04-17 16:20 | Diagnostic Imaging Report ---
Indication: Abdominal pain Technique: Continuous helical transaxial imaging of the abdomen and pelvis was obtained from the lung bases to the pubic symphysis during intravenous contrast administration. Coronal 2-D reformats were also obtained. Study obtained in a Siemens sensation [address] Automatic Exposure Control was utilized. Total Dose length Product (DLP): 907.[address] Dose Index Volume (CTDIvol): 16.82 mGy Comparison: None Findings: Ill-defined infiltrate noted at the left lung base suspicious for pneumonia. Correlate clinically. Pacemaker noted. Considerable artifact in the upper abdomen noted. Gastrostomy is in good position. Gallbladder is grossly unremarkable. There are calcific densities within both kidneys consistent with nonobstructive stones. There is no hydronephrosis. Spleen appears normal in size. Pancreas is unremarkable. No evidence of bowel obstruction or ascites. There is liquefied stool in the colon. Correlate for enterocolitis. Extensive heterotopic soft tissue ossification demonstrated posterior dependent aspects of both hips. There is severe contraction deformity. Grade 4 sacral decubitus ulcers noted with exposed posterior coccyx/sacrum. Correlate clinically. No compelling evidence for intra-abdominal or pelvic abscess, free fluid or free air. IMPRESSION: Left posterior basal pneumonia suspected. Correlate clinically. Grade 4 sacral decubitus ulcer with exposed sacrum/coccyx. Correlate clinically. Severe hip contraction deformity and heterotopic ossification about both hips. Bilateral nonobstructive stones within the kidneys. Gastrostomy Considerable artifact limiting evaluation of the upper abdomen. Liquefied stool in the colon. Correlate for diarrhea and enteritis. The CT scanner at [facility] is accredited by the [employer] and the scans are performed using dose optimization techniques as appropriate to a performed exam including Automatic Exposure control.
--- NOTE | 2018-04-17 16:58 | History & Physical ---
History and Physical History & Physicial Dictated for Int Med-Dr Box no. [id number]. Aaron Solis MD Apr 17, 2018 16:58
[2018-04-17 17:50] VITALS: BP 118/68
[2018-04-17] MEDS ORDERED: CARVEDILOL3.125 MG ORAL (18:00)
[2018-04-17 20:00] VITALS: BP 119/89
[2018-04-17] MEDS ORDERED: Albuterol/Ipratropium 3ml neb HHN PRN (20:00)
[2018-04-17] MEDS ORDERED: Miralax 17gm pkt ORAL PRN (20:00)
[2018-04-17] MEDS ORDERED: LORazepam Inj 2mg/ml 1ml IV PRN (20:00)
--- NOTE | 2018-04-17 20:02 | History and Physical Report ---
DATE OF ADMISSION: 04/17/2018 CHIEF COMPLAINT: This is a 58-year-old male, who presents with a chief complaint of fever. HISTORY OF PRESENT ILLNESS: The patient himself is unable to contribute much to the history and physical. The patient is chronic vent dependent. The patient is a resident of [facility]. According to the staff at [facility], the patient has had fever for two days. The patient was transported to [place] emergency room for evaluation. The patient was found to have pneumonia by chest x-ray. The patient is admitted for fever and pneumonia. PAST MEDICAL HISTORY: Significant for, 1. Chronic respiratory failure, vent dependent. 2. Congestive heart failure. 3. Cardiomyopathy. 4. Atrial fibrillation. 5. Dysphagia. 6. Encephalopathy, chronic. PAST SURGICAL HISTORY: Significant for, 1. AICD placement. 2. PEG placement. 3. Tracheostomy. MEDICATIONS: Current medications from [facility], 1. Folic acid 1 mg per G-tube daily. 2. Heparin 5000 units subcutaneously twice daily. 3. Keppra 500 mg per G-tube twice daily. 4. MiraLAX 17 g per G-tube daily. 5. Multivitamin per G-tube daily. 6. [place] 5/325 one tab per G-tube every 4 hours p.r.n. 7. Omeprazole 40 mg per G-tube daily. 8. Tylenol 650 mg per G-tube q.4 hours p.r.n. 9. Ultram 50 mg per G-tube q.6 hours p.r.n. 10. Vitamin C 500 mg per G-tube daily. 11. Zinc sulfate 220 mg per G-tube daily. 12. Zofran 4 mg per G-tube q.6 hours p.r.n. 13. Albuterol 2.5 mg nebulized q.3 hours p.r.n. 14. Amiodarone 200 mg per G-tube daily. 15. Ativan 0.5 mg per G-tube q.6 hours p.r.n. 16. Carvedilol 3.125 mg per G-tube twice daily. ALLERGIES: No known drug allergies. SOCIAL HISTORY: The patient is resident of [facility]. REVIEW OF SYSTEMS: Unable to assess secondary to the patient's mental status. PHYSICAL EXAMINATION: VITAL SIGNS: Temperature 99.2, respirations 18, pulse 101, blood pressure 115/77, and oxygen saturation 100% on mechanical ventilation. GENERAL: The patient is a thin-appearing cachectic male, who is lethargic. HEENT: Pupils are equal and responsive to light and accommodation. NECK: Supple without lymphadenopathy. There is presence of tracheostomy noted. CHEST: Decreased breath sounds bilaterally with expiratory wheezes. Otherwise, clear to auscultation without wheezes or rales. CARDIOVASCULAR: Tachycardic, regular rhythm. S1 and S2 are normal without murmurs, rubs, or gallops. ABDOMEN: Soft and nondistended with positive bowel sounds. No evidence of hepatosplenomegaly. Currently, no rebound or guarding noted. EXTREMITIES: Multiple contractures noted. INTEGUMENT: Presence of a stage IV sacral decubitus. LABORATORY DATA: WBC 14.6, hemoglobin 7.3, hematocrit 23.8, and platelets 159,000. Sodium 149, potassium 3.1, chloride 114, CO2 27, BUN 27, creatinine 0.8, and glucose 100. Troponin normal at 0.023. Chest x-ray revealed no acute disease. A CT scan of the abdomen and pelvis revealed left posterior basal pneumonia, otherwise, within normal limits. ASSESSMENT: This is a 58-year-old male. 1. Sepsis. 2. Left pneumonia. 3. Sacral decubitus ulcer stage IV. 4. Respiratory failure. 5. Congestive heart failure. 6. Automatic implantable cardioverter-defibrillator. 7. Cardiomyopathy. 8. Tracheostomy care. 9. Atrial fibrillation. 10. Chronic encephalopathy. TREATMENT: 1. Left-sided pneumonia/sepsis. A Pulmonary consultation has been obtained with Dr. Shani Moses. The patient has been started empirically on Zosyn. Sputum cultures are pending. Blood cultures are pending. An Infectious Disease consultation has been obtained with Dr. Naqvi. We will follow recommendations of Infectious Disease and Pulmonary. 2. Sacral decubitus ulcer stage IV. A General Surgery consultation was obtained with Dr. Dong. 3. Respiratory failure, chronic vent dependence. 4. Congestive heart failure/automatic implanted cardioverter defibrillator/cardiomyopathy. A Cardiology consultation will be obtained with Dr. Casey. Continue amiodarone as above. 5. Tracheostomy care. 6. Atrial fibrillation. Continue amiodarone as above. 7. Chronic encephalopathy. Aaron Solis M.D. DR: PEARL JOB#: [id number] CC:
[2018-04-17] MEDS: levETIRAcetam 500mg/5ml Liquid GT SCH (20:53)
[2018-04-17] MEDS: Heparin 5000 units/ml inj SUBQ SCH (20:54)
[2018-04-17] MEDS: Zoysn 3.37gm in NS 100ML IVPB SCH (22:30)
[2018-04-18] VITALS: BP 111/76
[2018-04-18 04:00] VITALS: BP 121/68
[2018-04-18 05:11] LABS: HEMATOCRIT 22.5 % (42.0-52.0); MEAN CORPUSCULAR VOLUME 90 FL (80-99); PLATELET COUNT 452 K/UL (150-450); RED BLOOD COUNT 2.48 M/UL (4.70-6.10)
[2018-04-18 05:16] LABS: HEMOGLOBIN 6.7 G/DL (14.2-18.0)
[2018-04-18 05:19] LABS: ALBUMIN 1.3 G/DL (3.4-5.0); ANION GAP 6 mmol/L (5-15); BLOOD UREA NITROGEN 21 mg/dL (7-18); CALCIUM 9.2 MG/DL (8.5-10.1); CARBON DIOXIDE 28 MMOL/L (21-32); CHLORIDE 117 MMOL/L (98-107); CREATININE 0.8 MG/DL (0.55-1.30); PHOSPHORUS 2.7 MG/DL (2.5-4.9); POTASSIUM 3.4 MMOL/L (3.5-5.1); SODIUM 151 MMOL/L (136-145)
[2018-04-18] MEDS: Vancomycin 1gm/D5W 275ml IVPB SCH ×4 (05:22→17:30)
[2018-04-18] MEDS: Zoysn 3.37gm in NS 100ML IVPB SCH ×3 (07:00→21:46)
[2018-04-18 08:00] VITALS: BP 114/89
--- NOTE | 2018-04-18 09:04 | Pulmonolgy Critical Care Note ---
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 protective caseworkermanager commodities - Objective Last 24 Hour Vital Signs Date Time Temp Pulse Resp B/P (MAP) Pulse Ox O2 Delivery O2 Flow Rate FiO2 04/18/18 07:01 110 16 35 04/18/18 05:25 108 20 35 04/18/18 04:00 35 04/18/18 04:00 98.6 115 18 121/68 100 Mechanical Ventilator 35 98.6 04/18/18 04:00 113 04/18/18 03:00 105 16 35 04/18/18 01:08 99.0 04/18/18 01:03 110 16 35 04/18/18 00:09 100.8 04/18/18 00:00 35 04/18/18 00:00 100.7 117 18 111/76 100 Mechanical Ventilator 35 100.7 04/18/18 00:00 118 04/17/18 23:00 120 21 35 04/17/18 21:01 118 23 35 04/17/18 20:53 113 119/89 04/17/18 20:06 35 04/17/18 20:00 35 04/17/18 20:00 98.1 113 22 119/89 100 Mechanical Ventilator 35 98.1 04/17/18 19:39 111 04/17/18 19:38 99.0 113 23 115/99 100 Mechanical Ventilator 35 99.0 04/17/18 18:37 114 23 35 04/17/18 17:50 99.0 100 18 118/68 100 Mechanical Ventilator 34 99.0 04/17/18 17:30 102 20 34 04/17/18 15:47 105 22 34 04/17/18 15:38 99.0 113 24 115/99 100 Mechanical Ventilator 34 99.0 04/17/18 13:30 103 26 34 04/17/18 13:30 103 23 Mechanical Ventilator 34 04/17/18 13:23 99.1 72 18 115/77 100 Mechanical Ventilator 99.1 04/17/18 13:17 99.2 101 18 115/77 100 Mechanical Ventilator 99.1 Status: awake Condition: critical HEENT: atraumatic Neck: full ROM Lungs: rhonchi Heart: HR/BP stable Abdomen: soft, non-tender, feeding tube Extremities: no C/C/E Decubiti: location, stage - 4 Critical Care - Subjective ROS Limited/Unobtainable: Yes EKG Rhythm: Sinus Tachycardia FI02: 35 Vent Support Breath Rate: 16 Vent Support Mode: AC Vent Tidal Volume: 600 Sputum Amount: Small PEEP: 5.0 PIP: 20 Tube Feeding Amount: 40 I&O: Intake and Output 04/17/18 04/18/18 19:00 07:00 Intake Total 845.000 ml Output Total 0 ml 700 ml Balance 0 ml 145.000 ml Intake Free Water 100 ml IV Total 385.000 ml Tube Feeding 300 ml Other 60 ml Output Urine Total 0 ml 700 ml # Bowel Movements 5 Labs: Laboratory Tests Test 04/17/18 13:58 04/17/18 22:30 04/18/18 03:25 White Blood Count 14.6 K/UL (4.8-10.8) H 14.0 K/UL (4.8-10.8) H Red Blood Count 2.61 M/UL (4.70-6.10) L 2.48 M/UL (4.70-6.10) L Hemoglobin 7.0 G/DL (14.2-18.0) L 6.7 G/DL (14.2-18.0) *L Hematocrit 23.8 % (42.0-52.0) L 22.5 % (42.0-52.0) L Mean Corpuscular Volume 91 FL (80-99) 90 FL (80-99) Mean Corpuscular Hemoglobin 26.6 PG (27.0-31.0) L 26.8 PG (27.0-31.0) L Mean Corpuscular Hemoglobin Concent 29.2 G/DL (32.0-36.0) L 29.7 G/DL (32.0-36.0) L Red Cell Distribution Width 16.1 % (11.6-14.8) H 16.0 % (11.6-14.8) H Platelet Count 459 K/UL (150-450) H 452 K/UL (150-450) H Mean Platelet Volume 6.9 FL (6.5-10.1) 7.2 FL (6.5-10.1) Neutrophils (%) (Auto) % (45.0-75.0) % (45.0-75.0) Lymphocytes (%) (Auto) % (20.0-45.0) % (20.0-45.0) Monocytes (%) (Auto) % (1.0-10.0) % (1.0-10.0) Eosinophils (%) (Auto) % (0.0-3.0) % (0.0-3.0) Basophils (%) (Auto) % (0.0-2.0) % (0.0-2.0) Differential Total Cells Counted 100 Neutrophils % (Manual) 63 % (45-75) Pending Lymphocytes % (Manual) 18 % (20-45) L Pending Monocytes % (Manual) 7 % (1-10) Eosinophils % (Manual) 10 % (0-3) H Basophils % (Manual) 0 % (0-2) Band Neutrophils 2 % (0-8) Platelet Estimate Increased H Pending Platelet Morphology Normal Pending Hypochromasia 2+ Anisocytosis 1+ Prothrombin Time 11.9 SEC (9.30-11.50) H Prothromb Time International Ratio 1.1 (0.9-1.1) Activated Partial Thromboplast Time 32 SEC (23-33) Sodium Level 149 MMOL/L (136-145) H 151 MMOL/L (136-145) H Potassium Level 3.1 MMOL/L (3.5-5.1) L 3.4 MMOL/L (3.5-5.1) L Chloride Level 114 MMOL/L (98-107) H 117 MMOL/L (98-107) H Carbon Dioxide Level 27 MMOL/L (21-32) 28 MMOL/L (21-32) Anion Gap 8 mmol/L (5-15) 6 mmol/L (5-15) Blood Urea Nitrogen 27 mg/dL (7-18) H 21 mg/dL (7-18) H Creatinine 0.8 MG/DL (0.55-1.30) 0.8 MG/DL (0.55-1.30) Estimat Glomerular Filtration Rate > 60 mL/min (>60) > 60 mL/min (>60) Glucose Level 100 MG/DL (74-106) 78 MG/DL (74-106) Lactic Acid Level 0.90 mmol/L (0.4-2.0) Calcium Level 8.9 MG/DL (8.5-10.1) 9.2 MG/DL (8.5-10.1) Magnesium Level 2.0 MG/DL (1.8-2.4) Total Bilirubin 0.2 MG/DL (0.2-1.0) Aspartate Amino Transf (AST/SGOT) 20 U/L (15-37) Alanine Aminotransferase (ALT/SGPT) 33 U/L (12-78) Alkaline Phosphatase 118 U/L (46-116) H Total Creatine Kinase 67 U/L (26-308) Creatine Kinase MB 1.8 NG/ML (0.0-3.6) Creatine Kinase MB Relative Index 2.6 Troponin I 0.023 ng/mL (0.000-0.056) Total Protein 7.1 G/DL (6.4-8.2) Albumin 1.3 G/DL (3.4-5.0) L 1.3 G/DL (3.4-5.0) L Globulin 5.8 g/dL Albumin/Globulin Ratio 0.2 (1.0-2.7) L Stool Occult Blood Pending Phosphorus Level 2.7 MG/DL (2.5-4.9) Shani Moses MD Apr 18, 2018 09:04
[2018-04-18] MEDS: levETIRAcetam 500mg/5ml Liquid GT SCH ×2 (09:33→21:39)
[2018-04-18] MEDS: Pantoprazole Inj IV SCH (09:34)
[2018-04-18] MEDS: Amiodarone 200mg tab GT SCH (09:34)
[2018-04-18] MEDS: Heparin 5000 units/ml inj SUBQ SCH ×2 (09:37→21:46)
[2018-04-18 12:00] VITALS: BP 118/84
--- NOTE | 2018-04-18 12:50 | Consultation ---
History of Present Illness General Date patient seen: Apr 18, 2018 Chief Complaint: Abnormal Labs Present Illness HPI 58 y/o M with hx of Afib, Cardiomyopathy, HTN, Dm2, Rheumatic tricuspid valve disease, MSSA bacteremia 11/2017 (Related to necrotic sacral wound) s/p 4 weeks abx, PSA UTI, Vtach s/p AICD, FTT, PNA, COPD, Dysphagia s/p GT, chronic resp failure s/p trach/vent dependant, GERD, cirrhosis, encephalopathy/Dementia, CVA/ TIA, seizure disorder, chronic stage IV sacral decubitus ulcer, [facility] resident presents to ED on 04/[address] with fever. CXR and CT consistent with pneumonia. Of note, patient admitted here from 02/16-02/26 due to weakness, worsening sacral decubitus wound w/ purulent discharge. Treated with 14 days of Meropenem and 7 days of IV Vancomycin . Allergies: Coded Allergies: No Known Allergies (Unverified , 03/07/17) Medication History Scheduled Amino Acids/Protein Hydrolys (Pro-Stat Liquid), 30 ML ORAL THREE TIMES A DAY, ( Reported) Amiodarone Hcl (Amiodarone Hcl), 200 MG GT DAILY, (Reported) Ascorbic Acid* (Vitamin C*), 500 MG GT DAILY, (Reported) Carvedilol* (Carvedilol*), 3.125 MG ORAL EVERY 12 HOURS, (Reported) Cran/Vitc/Mannose/Inulin/Brom (Uti-Stat Liquid), 30 ML GT TID, (Reported) Docusate Sodium* (Docusate Sodium*), 100 MG GT DAILY, (Reported) Folic Acid* (Folic Acid*), 1 MG ORAL DAILY, (Reported) Heparin Sod (Porcine) (Heparin Sodium*), 5,000 UNITS SUBQ EVERY 12 HOURS, ( Reported) Levetiracetam (Keppra), 500 MG GT Q12HR Lorazepam* (Ativan*), 0.5 MG GT PRN, (Reported) Multivitamin With Minerals (Multivitamins With Minerals*), 1 TAB GT DAILY, ( Reported) Omeprazole (Omeprazole), 40 MG GT DAILY, (Reported) Polyethylene Glycol 3350* (Miralax*), 17 GM GT PRN, (Reported) Tramadol Hcl* (Ultram*), 50 MG GT DAILY, (Reported) Zinc Sulfate (Zinc Sulfate*), 220 MG GT DAILY, (Reported) Scheduled PRN Acetaminophen* (Acetaminophen 325MG Tablet*), 650 MG GT Q4H PRN for TEMP > 101F OR MILD PAIN, (Reported) Albuterol Sulfate* (Albuterol Sulfate Hhn*), 3 ML INH Q3HR PRN for Shortness of Breath, (Reported) Hydrocodone Bit/Acetaminophen 5-325* (Gove 5-325 Tablet*), 1 TAB ORAL Q4H PRN for Moderate Pain (Pain Scale 4-6), (Reported) Ondansetron* (Zofran*), 4 MG GT Q6H PRN for Nausea & Vomiting, (Reported) Miscellaneous Medications Chlorhexidine Gluconate (Chlorhexidine Gluconate), 15 ML TP, (Reported) Discontinued Medications Acetaminophen* (Tylenol*), 325 MG GT Q4H PRN for Mild Pain/Temp > 100.5, ( Reported) Discontinued Reason: Pt stopped taking med Arginine/Ascorbate Sod/Coy AC (Arginaid Powder), 1 EACH GT TWICE A DAY, ( Reported) Discontinued Reason: Pt stopped taking med Aspirin* (Aspir 81*), 81 MG GT DAILY, (Reported) Discontinued Reason: Pt stopped taking med Clonidine Hcl (Clonidine Hcl), 0.1 MG PO Q6HR PRN for For High Blood Pressure, ( Reported) Discontinued Reason: Pt stopped taking med Ertapenem (Invanz), 1 GM IM DAILY Discontinued Reason: Pt stopped taking med Ferrous Sulfate (Ferrous Sulfate), 330 MG GT DAILY, (Reported) Discontinued Reason: Pt stopped taking med Furosemide* (Lasix*), 60 MG GT DAILY, (Reported) Discontinued Reason: Pt stopped taking med Lactose-Reduced Food/Fiber (Jevity 1.2 Simone Liquid), 1,300 ML GT, (Reported) Discontinued Reason: Pt stopped taking med Lactulose (Lactulose*), 30 ML GT BID, (Reported) Discontinued Reason: Pt stopped taking med Lisinopril* (Lisinopril*), 10 MG GT DAILY, (Reported) Discontinued Reason: Pt stopped taking med Meropenem (Meropenem), 1 GM IV EVERY 8 HOURS Discontinued Reason: Pt stopped taking med Nitrofurantoin Macrocrystal (Nitrofurantoin), 100 MG GT BID, (Reported) Discontinued Reason: Pt stopped taking med Potassium (Potassium), 40 MG GT BID, (Reported) Discontinued Reason: Pt stopped taking med Vancomycin Hcl/D5w (Vancomycin-D5w 1 G/250 Ml), 1 GM IVPB Q24H Discontinued Reason: Pt stopped taking med Vancomycin/0.9 % Sod Chloride (Vanco 1 Gram/150 Ml-0.9% Nacl), 0.75 GM IV DAILY Discontinued Reason: Pt stopped taking med Warfarin Sod (Coumadin*), 8 MG GT DAILY, (Reported) Discontinued Reason: Pt stopped taking med Patient History Healthcare decision maker Resuscitation status Full Code Advanced Directive on File No Patient History Narrative Pmhx: as above Shx: reviewed Fhx: non contributory Review of Systems ROS Narrative unable to obtain Physical Exam Physical Exam Narrative GENERAL: The patient is a thin-appearing cachectic male, who is lethargic. HEENT: Pupils are equal and responsive to light and accommodation. NECK: Supple without lymphadenopathy. There is presence of tracheostomy noted. CHEST: Decreased breath sounds bilaterally with expiratory wheezes. Otherwise, clear to auscultation without wheezes or rales. CARDIOVASCULAR: Tachycardic, regular rhythm. S1 and S2 are normal without murmurs, rubs, or gallops. ABDOMEN: Soft and nondistended with positive bowel sounds. No evidence of hepatosplenomegaly. Currently, no rebound or guarding noted. EXTREMITIES: Multiple contractures noted. INTEGUMENT: Presence of a stage IV sacral decubitus. Last 24 Hour Vital Signs Date Time Temp Pulse Resp B/P (MAP) Pulse Ox O2 Delivery O2 Flow Rate FiO2 04/18/18 12:09 35 04/18/18 11:28 107 16 35 04/18/18 09:35 114 114/89 04/18/18 09:12 114 16 35 04/18/18 08:00 35 04/18/18 08:00 108 04/18/18 08:00 99.3 114 16 114/89 100 Mechanical Ventilator 35 99.3 04/18/18 07:01 110 16 35 04/18/18 05:25 108 20 35 04/18/18 04:00 35 04/18/18 04:00 98.6 115 18 121/68 100 Mechanical Ventilator 35 98.6 04/18/18 04:00 113 04/18/18 03:00 105 16 35 04/18/18 01:08 99.0 04/18/18 01:03 110 16 35 04/18/18 00:09 100.8 04/18/18 00:00 35 04/18/18 00:00 100.7 117 18 111/76 100 Mechanical Ventilator 35 100.7 04/18/18 00:00 118 04/17/18 23:00 120 21 35 04/17/18 21:01 118 23 35 04/17/18 20:53 113 119/89 04/17/18 20:06 35 04/17/18 20:00 35 04/17/18 20:00 98.1 113 22 119/89 100 Mechanical Ventilator 35 98.1 04/17/18 19:39 111 04/17/18 19:38 99.0 113 23 115/99 100 Mechanical Ventilator 35 99.0 04/17/18 18:37 114 23 35 04/17/18 17:50 99.0 100 18 118/68 100 Mechanical Ventilator 34 99.0 04/17/18 17:30 102 20 34 04/17/18 15:47 105 22 34 04/17/18 15:38 99.0 113 24 115/99 100 Mechanical Ventilator 34 99.0 04/17/18 13:30 103 26 34 04/17/18 13:30 103 23 Mechanical Ventilator 34 04/17/18 13:23 99.1 72 18 115/77 100 Mechanical Ventilator 99.1 04/17/18 13:17 99.2 101 18 115/77 100 Mechanical Ventilator 99.1 Intake and Output 04/17/18 04/18/18 19:00 07:00 Intake Total 845.000 ml Output Total 0 ml 700 ml Balance 0 ml 145.000 ml Intake Free Water 100 ml IV Total 385.000 ml Tube Feeding 300 ml Other 60 ml Output Urine Total 0 ml 700 ml # Bowel Movements 5 Laboratory Tests Test 04/17/18 13:58 04/17/18 22:30 04/18/18 03:25 White Blood Count 14.6 K/UL (4.8-10.8) H 14.0 K/UL (4.8-10.8) H Red Blood Count 2.61 M/UL (4.70-6.10) L 2.48 M/UL (4.70-6.10) L Hemoglobin 7.0 G/DL (14.2-18.0) L 6.7 G/DL (14.2-18.0) *L Hematocrit 23.8 % (42.0-52.0) L 22.5 % (42.0-52.0) L Mean Corpuscular Volume 91 FL (80-99) 90 FL (80-99) Mean Corpuscular Hemoglobin 26.6 PG (27.0-31.0) L 26.8 PG (27.0-31.0) L Mean Corpuscular Hemoglobin Concent 29.2 G/DL (32.0-36.0) L 29.7 G/DL (32.0-36.0) L Red Cell Distribution Width 16.1 % (11.6-14.8) H 16.0 % (11.6-14.8) H Platelet Count 459 K/UL (150-450) H 452 K/UL (150-450) H Mean Platelet Volume 6.9 FL (6.5-10.1) 7.2 FL (6.5-10.1) Neutrophils (%) (Auto) % (45.0-75.0) % (45.0-75.0) Lymphocytes (%) (Auto) % (20.0-45.0) % (20.0-45.0) Monocytes (%) (Auto) % (1.0-10.0) % (1.0-10.0) Eosinophils (%) (Auto) % (0.0-3.0) % (0.0-3.0) Basophils (%) (Auto) % (0.0-2.0) % (0.0-2.0) Differential Total Cells Counted 100 100 Neutrophils % (Manual) 63 % (45-75) 67 % (45-75) Lymphocytes % (Manual) 18 % (20-45) L 24 % (20-45) Monocytes % (Manual) 7 % (1-10) 7 % (1-10) Eosinophils % (Manual) 10 % (0-3) H 2 % (0-3) Basophils % (Manual) 0 % (0-2) 0 % (0-2) Band Neutrophils 2 % (0-8) 0 % (0-8) Platelet Estimate Increased H Adequate Platelet Morphology Normal Normal Hypochromasia 2+ 1+ Anisocytosis 1+ 1+ Prothrombin Time 11.9 SEC (9.30-11.50) H Prothromb Time International Ratio 1.1 (0.9-1.1) Activated Partial Thromboplast Time 32 SEC (23-33) Sodium Level 149 MMOL/L (136-145) H 151 MMOL/L (136-145) H Potassium Level 3.1 MMOL/L (3.5-5.1) L 3.4 MMOL/L (3.5-5.1) L Chloride Level 114 MMOL/L (98-107) H 117 MMOL/L (98-107) H Carbon Dioxide Level 27 MMOL/L (21-32) 28 MMOL/L (21-32) Anion Gap 8 mmol/L (5-15) 6 mmol/L (5-15) Blood Urea Nitrogen 27 mg/dL (7-18) H 21 mg/dL (7-18) H Creatinine 0.8 MG/DL (0.55-1.30) 0.8 MG/DL (0.55-1.30) Estimat Glomerular Filtration Rate > 60 mL/min (>60) > 60 mL/min (>60) Glucose Level 100 MG/DL (74-106) 78 MG/DL (74-106) Lactic Acid Level 0.90 mmol/L (0.4-2.0) Calcium Level 8.9 MG/DL (8.5-10.1) 9.2 MG/DL (8.5-10.1) Magnesium Level 2.0 MG/DL (1.8-2.4) Total Bilirubin 0.2 MG/DL (0.2-1.0) Aspartate Amino Transf (AST/SGOT) 20 U/L (15-37) Alanine Aminotransferase (ALT/SGPT) 33 U/L (12-78) Alkaline Phosphatase 118 U/L (46-116) H Total Creatine Kinase 67 U/L (26-308) Creatine Kinase MB 1.8 NG/ML (0.0-3.6) Creatine Kinase MB Relative Index 2.6 Troponin I 0.023 ng/mL (0.000-0.056) Total Protein 7.1 G/DL (6.4-8.2) Albumin 1.3 G/DL (3.4-5.0) L 1.3 G/DL (3.4-5.0) L Globulin 5.8 g/dL Albumin/Globulin Ratio 0.2 (1.0-2.7) L Stool Occult Blood Negative (NEGATIVE) Phosphorus Level 2.7 MG/DL (2.5-4.9) Height (Feet): 5 Height (Inches): 8.00 Weight (Pounds): 121 Medications Current Medications Medications (Trade) Dose Ordered Sig/Tameka Route PRN Reason Start Time Stop Time Status Last Admin Dose Admin Acetaminophen (Tylenol) 650 mg Q4H PRN ORAL FEVER 04/17/18 20:00 05/17/18 19:59 04/18/18 11:58 Albuterol/ Ipratropium (Albuterol/ Ipratropium) 3 ml EVERY 4 HOURS PRN HHN Shortness of Breath 04/17/18 20:00 04/22/18 19:59 Amiodarone HCl (Cordarone) 200 mg DAILY GT 04/18/18 09:00 05/18/18 08:59 04/18/18 09:34 Carvedilol (Coreg) 3.125 mg EVERY 12 HOURS ORAL 04/17/18 21:00 05/17/18 20:59 04/18/18 09:35 Dextrose (Dextrose 50%) 25 ml STAT PRN IV BS 60-69mg/dl 04/17/18 20:15 05/17/18 20:14 Dextrose (Dextrose 50%) 50 ml STAT PRN IV BS less than 60mg/dl 04/17/18 20:00 05/17/18 19:59 Heparin Sodium (Porcine) (Heparin 5000 units/ml) 5,000 units EVERY 12 HOURS SUBQ 04/17/18 21:00 05/17/18 20:59 04/18/18 09:37 Iopamidol (Isovue-300 100ml) 100 ml NOW PRN INJ Radiology Procedure 04/17/18 14:45 Levetiracetam (Keppra) 500 mg Q12HR GT 04/17/18 21:00 05/17/18 20:59 04/18/18 09:33 Lorazepam (Ativan 2mg/ml 1ml) 2 mg EVERY 2 HOURS PRN IV For Anxiety 04/17/18 20:00 04/24/18 19:59 Morphine Sulfate (Morphine Sulfate) 4 mg EVERY 4 HOURS PRN IVP Severe Pain (Pain Scale 7-10) 04/17/18 20:00 04/24/18 19:59 Ondansetron HCl (Zofran) 4 mg Q6H PRN IVP Nausea & Vomiting 04/17/18 20:00 05/17/18 19:59 Pantoprazole (Protonix) 40 mg DAILY IV 04/18/18 09:00 05/18/18 08:59 04/18/18 09:34 Piperacillin Sod/ Tazobactam Sod 3.375 gm/Sodium Chloride 110 ml @ 27.5 mls/hr Q8HR IVPB 04/17/18 22:00 04/24/18 23:59 04/18/18 07:00 Polyethylene Glycol (Miralax) 17 gm DAILYPRN PRN ORAL Constipation 04/17/18 20:00 05/17/18 19:59 Vancomycin HCl (Vanco rx to dose) 1 ea DAILY PRN MISC VANCO RX TO DOSE 04/17/18 20:15 05/17/18 20:14 Vancomycin HCl 1 gm/Dextrose 275 ml @ 183.708 mls/hr Q12H IVPB 04/18/18 05:00 04/23/18 23:59 04/18/18 05:22 Assessment/Plan Assessment/Plan Abx: IV Vanco 04/17- Zosyn 04/17- Assessment: SEpsis- likely 2ry to PNA- r/o Cdiff, recurrent bacteremia -CXR: no acute disease -CT abd/p: Left posterior basal pneumonia suspected. Correlate clinically. Grade 4 sacral decubitus ulcer with exposed sacrum/coccyx. Correlate clinically. Severe hip contraction deformity and heterotopic ossification about both hips. Bilateral nonobstructive stones within the kidneys. Gastrostomy. Considerable artifact limiting evaluation of the upper abdomen. Liquefied stool in the colon. Correlate for diarrhea and enteritis. -u/a p -Bcx, sp cx p Fever, leukocytosis Multiple lower extremity decubitus (including stage IV sacral decubitus) w/ likely chronic OM 02/2018 [facility] x: MDR Providencia (+ skin colonizer ) Bone scan limited for eval of osteomyelitis. ( due to contracted Ext. ) -s/p 2 weeks of treatment 02/2018 -L hip necrotic/unstagelable decubitus ulcer SP Debridement 11/29 ; Wnd Cx : ACB and Kleb and Strp GrG , MRSA Hx of MSSA bacteremia 11/2017 2ry to infected sacral wound ( SP 4 wks AB rx ) Hx of Pseudomonas urinary tract infection. hx of SCx: MDR-PSA ( colonizer ) Ch transaminitis /cirrhosis Hep C Ab + VDRF Status post trach and percutaneous endoscopic gastrostomy. Dementia Seizure disorder. History of pacemaker placement/AICD -hx of Vtach. Hypertension. COPD. Diabetes. Afib Cardiomyopathy Rheumatic tricuspid valve disease FTT GERD CVA/TIA [facility] resident NKDA FUll code Plan: -Continue empiric IV Vanco and Zosyn pending cultures -03/04 SP Meropenem #14 -/15 SP IV Vanco #7 -4/6 SP vancomycin and Zosyn d#3 -/ SP IV Vancomycin #28 -12/16 SP Meropenem #14 -// SP IV Zosyn d# 3 -f/u cx -Cdiff -Monitor CBC/BMP, temperatures -wound care per hospital protocol -Sx f/u -trach/peg care -aspiration precautions Thank you for this consultation. Will continue to follow along with you. Discussed with Radha Dougherty M.D. Apr 18, 2018 12:50
--- NOTE | 2018-04-18 15:20 | Internal Med Progress Note ---
Subjective Date of Service: Apr 18, 2018 Physician Name Aaron Solis Attending Physician Shani Moses MD Current Medications Medications (Trade) Dose Ordered Sig/Tameka Route PRN Reason Start Time Stop Time Status Last Admin Dose Admin Acetaminophen (Tylenol) 650 mg Q4H PRN ORAL FEVER 04/17/18 20:00 05/17/18 19:59 04/18/18 11:58 Albuterol/ Ipratropium (Albuterol/ Ipratropium) 3 ml EVERY 4 HOURS PRN HHN Shortness of Breath 04/17/18 20:00 04/22/18 19:59 Amiodarone HCl (Cordarone) 200 mg DAILY GT 04/18/18 09:00 05/18/18 08:59 04/18/18 09:34 Carvedilol (Coreg) 3.125 mg EVERY 12 HOURS ORAL 04/17/18 21:00 05/17/18 20:59 04/18/18 09:35 Dextrose (Dextrose 50%) 25 ml STAT PRN IV BS 60-69mg/dl 04/17/18 20:15 05/17/18 20:14 Dextrose (Dextrose 50%) 50 ml STAT PRN IV BS less than 60mg/dl 04/17/18 20:00 05/17/18 19:59 Heparin Sodium (Porcine) (Heparin 5000 units/ml) 5,000 units EVERY 12 HOURS SUBQ 04/17/18 21:00 05/17/18 20:59 04/18/18 09:37 Iopamidol (Isovue-300 100ml) 100 ml NOW PRN INJ Radiology Procedure 04/17/18 14:45 Levetiracetam (Keppra) 500 mg Q12HR GT 04/17/18 21:00 05/17/18 20:59 04/18/18 09:33 Lorazepam (Ativan 2mg/ml 1ml) 2 mg EVERY 2 HOURS PRN IV For Anxiety 04/17/18 20:00 04/24/18 19:59 Morphine Sulfate (Morphine Sulfate) 4 mg EVERY 4 HOURS PRN IVP Severe Pain (Pain Scale 7-10) 04/17/18 20:00 04/24/18 19:59 Ondansetron HCl (Zofran) 4 mg Q6H PRN IVP Nausea & Vomiting 04/17/18 20:00 05/17/18 19:59 Pantoprazole (Protonix) 40 mg DAILY IV 04/18/18 09:00 05/18/18 08:59 04/18/18 09:34 Piperacillin Sod/ Tazobactam Sod 3.375 gm/Sodium Chloride 110 ml @ 27.5 mls/hr Q8HR IVPB 04/17/18 22:00 04/24/18 23:59 04/18/18 13:29 Polyethylene Glycol (Miralax) 17 gm DAILYPRN PRN ORAL Constipation 04/17/18 20:00 05/17/18 19:59 Vancomycin HCl (Vanco rx to dose) 1 ea DAILY PRN MISC VANCO RX TO DOSE 04/17/18 20:15 05/17/18 20:14 Vancomycin HCl 1 gm/Dextrose 275 ml @ 183.708 mls/hr Q12H IVPB 04/18/18 05:00 04/23/18 23:59 04/18/18 05:22 Allergies: Coded Allergies: No Known Allergies (Unverified , 03/07/17) ROS Limited/Unobtainable: Yes Subjective 58 YO M with chronic respiratory failure and vent dependence admitted with respiratory distress. Now pneumonia and sepsis. Cover for Int Med-Dr Box. LIGIA Objective Last Vital Signs Date Time Temp Pulse Resp B/P (MAP) Pulse Ox O2 Delivery O2 Flow Rate FiO2 04/18/18 13:42 106 16 35 04/18/18 09:35 114/89 04/18/18 08:00 99.3 100 Mechanical Ventilator 99.3 General Appearance: cachetic, lethargic, thin EENT: normal ENT inspection Neck: non-tender, stiff neck, other - tracheostomy present Cardiovascular: normal peripheral pulses, normal rate, regular rhythm, no gallop/murmur, no JVD Respiratory/Chest: crackles/rales, rhonchi - bilaterally, expiratory wheezing Abdomen: normal bowel sounds, non tender, soft, no organomegaly, no mass Extremities: other - contracted X 4 Skin: normal pigmentation, warm/dry Laboratory Tests Test 04/17/18 22:30 04/18/18 03:25 Stool Occult Blood Negative (NEGATIVE) White Blood Count 14.0 K/UL (4.8-10.8) H Red Blood Count 2.48 M/UL (4.70-6.10) L Hemoglobin 6.7 G/DL (14.2-18.0) *L Hematocrit 22.5 % (42.0-52.0) L Mean Corpuscular Volume 90 FL (80-99) Mean Corpuscular Hemoglobin 26.8 PG (27.0-31.0) L Mean Corpuscular Hemoglobin Concent 29.7 G/DL (32.0-36.0) L Red Cell Distribution Width 16.0 % (11.6-14.8) H Platelet Count 452 K/UL (150-450) H Mean Platelet Volume 7.2 FL (6.5-10.1) Neutrophils (%) (Auto) % (45.0-75.0) Lymphocytes (%) (Auto) % (20.0-45.0) Monocytes (%) (Auto) % (1.0-10.0) Eosinophils (%) (Auto) % (0.0-3.0) Basophils (%) (Auto) % (0.0-2.0) Differential Total Cells Counted 100 Neutrophils % (Manual) 67 % (45-75) Lymphocytes % (Manual) 24 % (20-45) Monocytes % (Manual) 7 % (1-10) Eosinophils % (Manual) 2 % (0-3) Basophils % (Manual) 0 % (0-2) Band Neutrophils 0 % (0-8) Platelet Estimate Adequate Platelet Morphology Normal Hypochromasia 1+ Anisocytosis 1+ Sodium Level 151 MMOL/L (136-145) H Potassium Level 3.4 MMOL/L (3.5-5.1) L Chloride Level 117 MMOL/L (98-107) H Carbon Dioxide Level 28 MMOL/L (21-32) Anion Gap 6 mmol/L (5-15) Blood Urea Nitrogen 21 mg/dL (7-18) H Creatinine 0.8 MG/DL (0.55-1.30) Estimat Glomerular Filtration Rate > 60 mL/min (>60) Glucose Level 78 MG/DL (74-106) Calcium Level 9.2 MG/DL (8.5-10.1) Phosphorus Level 2.7 MG/DL (2.5-4.9) Albumin 1.3 G/DL (3.4-5.0) L Intake and Output 04/17/18 04/18/18 19:00 07:00 Intake Total 845.000 ml Output Total 0 ml 700 ml Balance 0 ml 145.000 ml Intake Free Water 100 ml IV Total 385.000 ml Tube Feeding 300 ml Other 60 ml Output Urine Total 0 ml 700 ml # Bowel Movements 5 Assessment/Plan Problem List: (1) Pneumonia Assessment & Plan: See pulmonary and ID note. Continue zosyn and vanco (2) Seizure disorder Assessment & Plan: Continue Keppra (3) Hypertension Assessment & Plan: Continue coreg (4) Diabetes mellitus type II, uncontrolled (5) Sacral decubitus ulcer, stage IV Assessment & Plan: possible chronic osteomyelitis-continue antibiotic per ID (6) CHF (congestive heart failure) (7) Cardiomyopathy (8) Tracheostomy care (9) Cerebral vascular disease (10) Acute on chronic respiratory failure (11) Sepsis Assessment & Plan: await blood culture results. Continue zosyn and vanco (12) Leukocytosis (13) Anemia (14) Atrial fibrillation Assessment & Plan: Continue amiodarone (15) Feeding by G-tube Status: not improved Aaron Solis MD Apr 18, 2018 15:20
[2018-04-18 16:00] VITALS: BP 105/66
--- NOTE | 2018-04-18 16:42 | Consultation ---
History of Present Illness General Date patient seen: Apr 18, 2018 Time patient seen: 16:54 Chief Complaint: Abnormal Labs Present Illness HPI 58 y/o M with hx of AFIB, LVEF 30% Cardiomyopathy s/p ICD, HTN, DM2, Rheumatic tricuspid valve disease, MSSA bacteremia 11/2017 (Related to necrotic sacral wound) s/p 4 weeks abx, UTI,FTT, PNA, COPD, Dysphagia s/p GT, chronic resp failure s/p trach/vent dependant, GERD, cirrhosis, encephalopathy/Dementia, CVA/ TIA, seizure disorder, presents with fever and PNA Allergies: Coded Allergies: No Known Allergies (Unverified , 03/07/17) Medication History Scheduled Amino Acids/Protein Hydrolys (Pro-Stat Liquid), 30 ML ORAL THREE TIMES A DAY, ( Reported) Amiodarone Hcl (Amiodarone Hcl), 200 MG GT DAILY, (Reported) Ascorbic Acid* (Vitamin C*), 500 MG GT DAILY, (Reported) Carvedilol* (Carvedilol*), 3.125 MG ORAL EVERY 12 HOURS, (Reported) Cran/Vitc/Mannose/Inulin/Brom (Uti-Stat Liquid), 30 ML GT TID, (Reported) Docusate Sodium* (Docusate Sodium*), 100 MG GT DAILY, (Reported) Folic Acid* (Folic Acid*), 1 MG ORAL DAILY, (Reported) Heparin Sod (Porcine) (Heparin Sodium*), 5,000 UNITS SUBQ EVERY 12 HOURS, ( Reported) Levetiracetam (Keppra), 500 MG GT Q12HR Lorazepam* (Ativan*), 0.5 MG GT PRN, (Reported) Multivitamin With Minerals (Multivitamins With Minerals*), 1 TAB GT DAILY, ( Reported) Omeprazole (Omeprazole), 40 MG GT DAILY, (Reported) Polyethylene Glycol 3350* (Miralax*), 17 GM GT PRN, (Reported) Tramadol Hcl* (Ultram*), 50 MG GT DAILY, (Reported) Zinc Sulfate (Zinc Sulfate*), 220 MG GT DAILY, (Reported) Scheduled PRN Acetaminophen* (Acetaminophen 325MG Tablet*), 650 MG GT Q4H PRN for TEMP > 101F OR MILD PAIN, (Reported) Albuterol Sulfate* (Albuterol Sulfate Hhn*), 3 ML INH Q3HR PRN for Shortness of Breath, (Reported) Hydrocodone Bit/Acetaminophen 5-325* (Livingston 5-325 Tablet*), 1 TAB ORAL Q4H PRN for Moderate Pain (Pain Scale 4-6), (Reported) Ondansetron* (Zofran*), 4 MG GT Q6H PRN for Nausea & Vomiting, (Reported) Miscellaneous Medications Chlorhexidine Gluconate (Chlorhexidine Gluconate), 15 ML TP, (Reported) Discontinued Medications Acetaminophen* (Tylenol*), 325 MG GT Q4H PRN for Mild Pain/Temp > 100.5, ( Reported) Discontinued Reason: Pt stopped taking med Arginine/Ascorbate Sod/Coy AC (Arginaid Powder), 1 EACH GT TWICE A DAY, ( Reported) Discontinued Reason: Pt stopped taking med Aspirin* (Aspir 81*), 81 MG GT DAILY, (Reported) Discontinued Reason: Pt stopped taking med Clonidine Hcl (Clonidine Hcl), 0.1 MG PO Q6HR PRN for For High Blood Pressure, ( Reported) Discontinued Reason: Pt stopped taking med Ertapenem (Invanz), 1 GM IM DAILY Discontinued Reason: Pt stopped taking med Ferrous Sulfate (Ferrous Sulfate), 330 MG GT DAILY, (Reported) Discontinued Reason: Pt stopped taking med Furosemide* (Lasix*), 60 MG GT DAILY, (Reported) Discontinued Reason: Pt stopped taking med Lactose-Reduced Food/Fiber (Jevity 1.2 Simone Liquid), 1,300 ML GT, (Reported) Discontinued Reason: Pt stopped taking med Lactulose (Lactulose*), 30 ML GT BID, (Reported) Discontinued Reason: Pt stopped taking med Lisinopril* (Lisinopril*), 10 MG GT DAILY, (Reported) Discontinued Reason: Pt stopped taking med Meropenem (Meropenem), 1 GM IV EVERY 8 HOURS Discontinued Reason: Pt stopped taking med Nitrofurantoin Macrocrystal (Nitrofurantoin), 100 MG GT BID, (Reported) Discontinued Reason: Pt stopped taking med Potassium (Potassium), 40 MG GT BID, (Reported) Discontinued Reason: Pt stopped taking med Vancomycin Hcl/D5w (Vancomycin-D5w 1 G/250 Ml), 1 GM IVPB Q24H Discontinued Reason: Pt stopped taking med Vancomycin/0.9 % Sod Chloride (Vanco 1 Gram/150 Ml-0.9% Nacl), 0.75 GM IV DAILY Discontinued Reason: Pt stopped taking med Warfarin Sod (Coumadin*), 8 MG GT DAILY, (Reported) Discontinued Reason: Pt stopped taking med Patient History Healthcare decision maker Resuscitation status Full Code Advanced Directive on File No Review of Systems Constitutional: Reports: sweats, fever, malaise, weakness Eye: Reports: no symptoms ENT: Reports: no symptoms Respiratory: Reports: shortness of breath Cardiovascular: Reports: no symptoms Gastrointestinal: Reports: no symptoms Genitourinary: Reports: no symptoms Musculoskeletal: Reports: no symptoms Skin: Reports: lesions Psychiatric: Reports: no symptoms Neurological: Reports: no symptoms Endocrine: Reports: no symptoms Hematologic/Lymphatic: Reports: no symptoms Physical Exam General Appearance: lethargic Lines, tubes and drains: peripheral HEENT: normocephalic Neck: non-tender Respiratory/Chest: lungs clear Cardiovascular/Chest: normal rate, regular rhythm, pacemaker/AICD Abdomen: normal bowel sounds Extremities: normal range of motion Skin Exam: rash Neurologic: slate handler 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 normal Musculoskeletal: atrophy Last 24 Hour Vital Signs Date Time Temp Pulse Resp B/P (MAP) Pulse Ox O2 Delivery O2 Flow Rate FiO2 04/18/18 15:21 103 16 35 04/18/18 13:42 106 16 35 04/18/18 12:09 35 04/18/18 12:00 100.2 109 16 118/84 100 Mechanical Ventilator 35 100.2 04/18/18 12:00 107 04/18/18 11:28 107 16 35 04/18/18 10:00 100.0 112 Mechanical Ventilator 100.0 04/18/18 09:35 114 114/89 04/18/18 09:12 114 16 35 04/18/18 08:00 35 04/18/18 08:00 108 04/18/18 08:00 99.3 114 16 114/89 100 Mechanical Ventilator 35 99.3 04/18/18 07:01 110 16 35 04/18/18 05:25 108 20 35 04/18/18 04:00 35 04/18/18 04:00 98.6 115 18 121/68 100 Mechanical Ventilator 35 98.6 04/18/18 04:00 113 04/18/18 03:00 105 16 35 04/18/18 01:08 99.0 04/18/18 01:03 110 16 35 04/18/18 00:09 100.8 04/18/18 00:00 35 04/18/18 00:00 100.7 117 18 111/76 100 Mechanical Ventilator 35 100.7 04/18/18 00:00 118 04/17/18 23:00 120 21 35 04/17/18 21:01 118 23 35 04/17/18 20:53 113 119/89 04/17/18 20:06 35 04/17/18 20:00 35 04/17/18 20:00 98.1 113 22 119/89 100 Mechanical Ventilator 35 98.1 04/17/18 19:39 111 04/17/18 19:38 99.0 113 23 115/99 100 Mechanical Ventilator 35 99.0 04/17/18 18:37 114 23 35 04/17/18 17:50 99.0 100 18 118/68 100 Mechanical Ventilator 34 99.0 04/17/18 17:30 102 20 34 Intake and Output 04/17/18 04/18/18 19:00 07:00 Intake Total 885.000 ml Output Total 0 ml 700 ml Balance 0 ml 185.000 ml Intake Free Water 100 ml IV Total 385.000 ml Tube Feeding 340 ml Other 60 ml Output Urine Total 0 ml 700 ml # Bowel Movements 5 Laboratory Tests Test 04/17/18 22:30 04/18/18 03:25 Stool Occult Blood Negative (NEGATIVE) White Blood Count 14.0 K/UL (4.8-10.8) H Red Blood Count 2.48 M/UL (4.70-6.10) L Hemoglobin 6.7 G/DL (14.2-18.0) *L Hematocrit 22.5 % (42.0-52.0) L Mean Corpuscular Volume 90 FL (80-99) Mean Corpuscular Hemoglobin 26.8 PG (27.0-31.0) L Mean Corpuscular Hemoglobin Concent 29.7 G/DL (32.0-36.0) L Red Cell Distribution Width 16.0 % (11.6-14.8) H Platelet Count 452 K/UL (150-450) H Mean Platelet Volume 7.2 FL (6.5-10.1) Neutrophils (%) (Auto) % (45.0-75.0) Lymphocytes (%) (Auto) % (20.0-45.0) Monocytes (%) (Auto) % (1.0-10.0) Eosinophils (%) (Auto) % (0.0-3.0) Basophils (%) (Auto) % (0.0-2.0) Differential Total Cells Counted 100 Neutrophils % (Manual) 67 % (45-75) Lymphocytes % (Manual) 24 % (20-45) Monocytes % (Manual) 7 % (1-10) Eosinophils % (Manual) 2 % (0-3) Basophils % (Manual) 0 % (0-2) Band Neutrophils 0 % (0-8) Platelet Estimate Adequate Platelet Morphology Normal Hypochromasia 1+ Anisocytosis 1+ Sodium Level 151 MMOL/L (136-145) H Potassium Level 3.4 MMOL/L (3.5-5.1) L Chloride Level 117 MMOL/L (98-107) H Carbon Dioxide Level 28 MMOL/L (21-32) Anion Gap 6 mmol/L (5-15) Blood Urea Nitrogen 21 mg/dL (7-18) H Creatinine 0.8 MG/DL (0.55-1.30) Estimat Glomerular Filtration Rate > 60 mL/min (>60) Glucose Level 78 MG/DL (74-106) Calcium Level 9.2 MG/DL (8.5-10.1) Phosphorus Level 2.7 MG/DL (2.5-4.9) Albumin 1.3 G/DL (3.4-5.0) L Height (Feet): 5 Height (Inches): 8.00 Weight (Pounds): 121 Medications Current Medications Medications (Trade) Dose Ordered Sig/Tameka Route PRN Reason Start Time Stop Time Status Last Admin Dose Admin Acetaminophen (Tylenol) 650 mg Q4H PRN ORAL FEVER 04/17/18 20:00 05/17/18 19:59 04/18/18 11:58 Albuterol/ Ipratropium (Albuterol/ Ipratropium) 3 ml EVERY 4 HOURS PRN HHN Shortness of Breath 04/17/18 20:00 04/22/18 19:59 Amiodarone HCl (Cordarone) 200 mg DAILY GT 04/18/18 09:00 05/18/18 08:59 04/18/18 09:34 Carvedilol (Coreg) 3.125 mg EVERY 12 HOURS ORAL 04/17/18 21:00 05/17/18 20:59 04/18/18 09:35 Dextrose (Dextrose 50%) 25 ml STAT PRN IV BS 60-69mg/dl 04/17/18 20:15 05/17/18 20:14 Dextrose (Dextrose 50%) 50 ml STAT PRN IV BS less than 60mg/dl 04/17/18 20:00 05/17/18 19:59 Heparin Sodium (Porcine) (Heparin 5000 units/ml) 5,000 units EVERY 12 HOURS SUBQ 04/17/18 21:00 05/17/18 20:59 04/18/18 09:37 Iopamidol (Isovue-300 100ml) 100 ml NOW PRN INJ Radiology Procedure 04/17/18 14:45 Levetiracetam (Keppra) 500 mg Q12HR GT 04/17/18 21:00 05/17/18 20:59 04/18/18 09:33 Lorazepam (Ativan 2mg/ml 1ml) 2 mg EVERY 2 HOURS PRN IV For Anxiety 04/17/18 20:00 04/24/18 19:59 Morphine Sulfate (Morphine Sulfate) 4 mg EVERY 4 HOURS PRN IVP Severe Pain (Pain Scale 7-10) 04/17/18 20:00 04/24/18 19:59 Ondansetron HCl (Zofran) 4 mg Q6H PRN IVP Nausea & Vomiting 04/17/18 20:00 05/17/18 19:59 Pantoprazole (Protonix) 40 mg DAILY IV 04/18/18 09:00 05/18/18 08:59 04/18/18 09:34 Piperacillin Sod/ Tazobactam Sod 3.375 gm/Sodium Chloride 110 ml @ 27.5 mls/hr Q8HR IVPB 04/17/18 22:00 04/24/18 23:59 04/18/18 13:29 Polyethylene Glycol (Miralax) 17 gm DAILYPRN PRN ORAL Constipation 04/17/18 20:00 05/17/18 19:59 Vancomycin HCl (Vanco rx to dose) 1 ea DAILY PRN MISC VANCO RX TO DOSE 04/17/18 20:15 05/17/18 20:14 Vancomycin HCl 1 gm/Dextrose 275 ml @ 183.708 mls/hr Q12H IVPB 04/18/18 05:00 04/23/18 23:59 04/18/18 05:22 Assessment/Plan Assessment/Plan Continue coreg for cardiomyopathy - titrate as tolerated in outpatient setting Amiodarone for hx of VT ICD in place - no recent shocks Continue antibiotics for fever and elevated WBC Follow up blood and urine cultures CXR reviewed - clear no PNA/effusions Fausto Berg M.D. Apr 18, 2018 16:42
--- NOTE | 2018-04-18 17:16 | Consultation ---
DATE OF CONSULTATION: 04/18/2018 DATE OF ADMISSION: April 17, 2018. DATE OF CONSULTATION: April 18, 2018. CONSULTING PHYSICIAN: Alexandro High M.D. REFERRING PHYSICIAN: Shani Moses M.D. REASON FOR CONSULTATION: 1. Hypokalemia. 2. Hypernatremia. HISTORY OF PRESENT ILLNESS: The patient is a 58-year-old gentleman, who presented to the emergency room for evaluation and care of fever. The patient is a long-term resident of [facility], has tracheostomy and is ventilatory dependent. He was found to have pneumonia by chest x-ray and was anemic with hemoglobin of 6.7. Serum sodium 151, potassium of 3.4. History was obtained through electronic chart review and discussion with bedside nurse. PAST MEDICAL HISTORY: 1. Chronic respiratory failure, ventilatory dependent. 2. CHF. 3. Cardiomyopathy. 4. AFib. 5. Dysphagia. 6. Chronic encephalopathy. PAST SURGICAL HISTORY: 1. AICD. 2. PEG. 3. Tracheostomy. CURRENT MEDICATIONS: Reviewed on medicine reconciliation list. ALLERGIES: No known drug allergies. SOCIAL HISTORY: The patient is a long-term resident of [facility]. No tobacco, alcohol, or illicit drug use. REVIEW OF SYSTEMS: Unable to assess due to the patient's current state of being ventilatory dependent. LABORATORY DATA: Laboratories dated April 18, 2018, white cell count 14, hemoglobin 6.7, and platelet count 452,000. Sodium 151, potassium 3.4, chloride 117, creatinine 0.8, BUN 21, albumin 1.3. PHYSICAL EXAMINATION: VITAL SIGNS: Blood pressure 114/89, pulse 114, temperature 98.6, FiO2 35% on mechanical ventilation. GENERAL: The patient is awake, in no overt distress. HEENT: Extraocular muscles intact. NECK: No lymphadenopathy noted. CARDIOVASCULAR: S1, S2. No rubs or gallops. PULMONARY: Mild upper airway rhonchi. Fair air movement in all lung castillo. ABDOMEN: Nondistended and nontender. EXTREMITIES: No edema. ASSESSMENT AND PLAN: 1. Hypernatremia, at this time secondary to component of approximately 3 to 4 liters of intravascular volume depletion. At this time, we will add free water through his G-tube q.8 hours and repeat serum sodium in the morning. 2. Hypokalemia, mild in nature, has been replaced. Repeat potassium in the morning. 3. Chronic respiratory failure. The patient has a tracheostomy and is ventilatory dependent. 4. Nosocomial pneumonia. Antibiotic management per Dr. Moses. I would take this opportunity to thank Dr. Moses for allowing me to assist in the care of this patient. Alexandro High MD DR: Que JOB#: [id number] CC:
[2018-04-18 20:00] VITALS: BP 115/71
[2018-04-18] MEDS ORDERED: Vancomycin 1 GM in D5W 275 ML IV SCH (23:00)
[2018-04-19] VITALS: BP 112/73
[2018-04-19 04:00] VITALS: BP 138/80
[2018-04-19 05:03] LABS: BASOPHILS % (AUTO) 0.2 % (0.0-2.0); EOSINOPHILS % (AUTO) 5.9 % (0.0-3.0); HEMATOCRIT 29.2 % (42.0-52.0); HEMOGLOBIN 9.6 G/DL (14.2-18.0); LYMPHOCYTES % (AUTO) 14.4 % (20.0-45.0); MEAN CORPUSCULAR VOLUME 89 FL (80-99); MONOCYTES % (AUTO) 6.9 % (1.0-10.0); NEUTROPHILS % (AUTO) 72.6 % (45.0-75.0); PLATELET COUNT 481 K/UL (150-450); WHITE BLOOD COUNT 11.5 K/UL (4.8-10.8)
[2018-04-19 05:35] LABS: INR 1.2 (0.9-1.1)
[2018-04-19 05:54] LABS: ALANINE AMINOTRANSFERASE 28 U/L (12-78); ALBUMIN 1.3 G/DL (3.4-5.0); ALBUMIN/GLOBULIN RATIO 0.2 (1.0-2.7); ALKALINE PHOSPHATASE 106 U/L (46-116); ANION GAP 11 mmol/L (5-15); ASPARTATE AMINO TRANSFERASE 21 U/L (15-37); BILIRUBIN,TOTAL 0.4 MG/DL (0.2-1.0); BLOOD UREA NITROGEN 17 mg/dL (7-18); CALCIUM 8.6 MG/DL (8.5-10.1); CARBON DIOXIDE 24 MMOL/L (21-32); CHLORIDE 117 MMOL/L (98-107); CREATININE 0.9 MG/DL (0.55-1.30); POTASSIUM 3.3 MMOL/L (3.5-5.1); SODIUM 152 MMOL/L (136-145)
[2018-04-19] MEDS: Zoysn 3.37gm in NS 100ML IVPB SCH ×3 (06:08→22:01)
[2018-04-19 06:12] LABS: PHOSPHORUS 3.1 MG/DL (2.5-4.9)
[2018-04-19 06:14] LABS: LACTATE DEHYDROGENASE 163 U/L (81-234)
[2018-04-19 07:01] LABS: % IRON SATURATION 25 % (15-50); IRON 22 ug/dL (50-175); TOTAL IRON BINDING CAPACITY 88 ug/dL (250-450)
[2018-04-19 08:00] VITALS: BP 136/78
--- NOTE | 2018-04-19 08:33 | Nephrology Progress Note ---
Assessment/Plan Assessment/Plan 1. Hypernatremia- approx 3-4 L free water depleted. Increase free water thru peg Na at 152 2. Nosocomial PNA- on Abx, defer to ID and Pulm 3. Hypokalemia being replaced prn 4. Dehydration- refer to #1 Subjective Date patient seen: Apr 19, 2018 Time patient seen: 08:28 ROS Limited/Unobtainable: Yes Allergies: Coded Allergies: No Known Allergies (Unverified , 03/07/17) Subjective Patient trached on the vent Objective Last 24 Hour Vital Signs Date Time Temp Pulse Resp B/P (MAP) Pulse Ox O2 Delivery O2 Flow Rate FiO2 04/19/18 07:13 116 16 35 04/19/18 05:06 95 18 35 04/19/18 04:00 97.9 110 19 138/80 100 Mechanical Ventilator 35 97.9 04/19/18 04:00 35 04/19/18 03:43 110 04/19/18 03:15 96 18 35 04/19/18 01:16 99 24 35 04/19/18 00:00 35 04/19/18 00:00 98.9 105 19 112/73 100 Mechanical Ventilator 35 98.9 04/18/18 23:34 105 04/18/18 23:07 99 18 35 04/18/18 21:39 102 117/72 04/18/18 20:56 98 16 35 04/18/18 20:00 98.1 101 16 115/71 100 Mechanical Ventilator 35 98.1 04/18/18 20:00 35 04/18/18 19:14 93 16 35 04/18/18 19:03 98 04/18/18 17:28 113 17 35 04/18/18 16:00 35 04/18/18 16:00 35 04/18/18 16:00 99.0 103 16 105/66 100 Mechanical Ventilator 35 99.0 04/18/18 16:00 99.0 103 16 105/66 99 Mechanical Ventilator 35 99.0 04/18/18 16:00 103 04/18/18 15:21 103 16 35 04/18/18 13:42 106 16 35 04/18/18 12:09 35 04/18/18 12:00 100.2 109 16 118/84 100 Mechanical Ventilator 35 100.2 04/18/18 12:00 107 04/18/18 11:28 107 16 35 04/18/18 10:00 100.0 112 Mechanical Ventilator 100.0 04/18/18 09:35 114 114/89 04/18/18 09:12 114 16 35 Intake and Output 04/18/18 04/19/18 19:00 07:00 Intake Total 760 ml 813.8 ml Output Total 400 ml 500 ml Balance 360 ml 313.8 ml Intake Free Water 200 ml 200 ml IV Total 133.8 ml Tube Feeding 440 ml 480 ml Other 120 ml Output Urine Total 400 ml 500 ml # Bowel Movements 2 1 Laboratory Tests 04/19/18 03:00: Stool Occult Blood [Pending] 04/19/18 03:35: White Blood Count 11.5H, Red Blood Count 3.30L, Hemoglobin 9.6#L, Hematocrit 29.2L, Mean Corpuscular Volume 89, Mean Corpuscular Hemoglobin 29.0, Mean Corpuscular Hemoglobin Concent 32.7, Red Cell Distribution Width 15.0H, Platelet Count 481H, Mean Platelet Volume 7.1, Neutrophils (%) (Auto) 72.6, Lymphocytes (%) (Auto) 14.4L, Monocytes (%) (Auto) 6.9, Eosinophils (%) (Auto) 5.9H, Basophils (%) (Auto) 0.2, Differential Total Cells Counted 100, Neutrophils % (Manual) 69, Lymphocytes % (Manual) 18L, Monocytes % (Manual) 8, Eosinophils % (Manual) 5H, Basophils % (Manual) 0, Band Neutrophils 0, Platelet Estimate Adequate, Platelet Morphology Normal, Hypochromasia 1+, Anisocytosis 1+ , Erythrocyte Sedimentation Rate 119H, Reticulocyte Count [Pending], Prothrombin Time 12.6H, Prothromb Time International Ratio 1.2H, Activated Partial Thromboplast Time 35H, Sodium Level 152H, Potassium Level 3.3L, Chloride Level 117H, Carbon Dioxide Level 24, Anion Gap 11, Blood Urea Nitrogen 17, Creatinine 0.9, Estimat Glomerular Filtration Rate > 60, Glucose Level 99, Calcium Level 8.6, Phosphorus Level 3.1, Magnesium Level 2.0, Iron Level 22L, Total Iron Binding Capacity 88L, Percent Iron Saturation 25, Unsaturated Iron Binding 66L, Total Bilirubin 0.4, Aspartate Amino Transf (AST/SGOT) 21, Alanine Aminotransferase (ALT/SGPT) 28, Alkaline Phosphatase 106, Lactate Dehydrogenase 163, C-Reactive Protein, Quantitative 11.7H, Total Protein 7.1, Albumin 1.3L, Globulin 5.8, Albumin/Globulin Ratio 0.2L, Carcinoembryonic Antigen [Pending], Vitamin B12 Level 1054H, Folate 58.5, Vancomycin Level Trough 28.3H Height (Feet): 5 Height (Inches): 8.00 Weight (Pounds): 124 General Appearance: no apparent distress, alert EENT: TMs normal Neck: supple Cardiovascular: normal rate, regular rhythm Respiratory/Chest: rhonchi - bilaterally Abdomen: non tender, soft Edema: no edema noted Arm (L), no edema noted Arm (R), no edema noted Leg (L), no edema noted Leg (R), no edema noted Pedal (L), no edema noted Pedal (R), no edema noted Generalized Alexandro High M.D. Apr 19, 2018 08:33
[2018-04-19] MEDS: Amiodarone 200mg tab GT SCH (08:55)
[2018-04-19] MEDS: Pantoprazole Inj IV SCH (08:56)
[2018-04-19] MEDS: levETIRAcetam 500mg/5ml Liquid GT SCH ×2 (08:56→22:00)
[2018-04-19] MEDS: Heparin 5000 units/ml inj SUBQ SCH ×2 (08:59→22:02)
--- NOTE | 2018-04-19 09:44 | Pulmonolgy Critical Care Note ---
Critical Care - Asmt/Plan Problems: (1) Acute on chronic respiratory failure (2) Sepsis (3) Leukocytosis (4) Feeding by G-tube (5) EF of 30 (6) AICD (automatic cardioverter/defibrillator) present Respiratory: monitor respiratory rate, adjust FIO2 Cardiac: continue to monitor HR/BP Renal: F/U I&O Infectious Disease: check cultures Gastrointestinal: continue feedings/current rate Endocrine: monitor blood sugar, check HgA1C, continue sliding scale insulin Hematologic: monitor H/H, transfuse if hgb<8.5 Neurologic: PRN Ativan, PRN Morphine, keep patient comfortable Prophylaxis: Protonix, Heparin Notes Reviewed: cardio Discussed with: nurses, consultants, caseworkerplanning manager - Objective Last 24 Hour Vital Signs Date Time Temp Pulse Resp B/P (MAP) Pulse Ox O2 Delivery O2 Flow Rate FiO2 04/19/18 08:56 117 136/78 04/19/18 08:00 117 04/19/18 08:00 35 04/19/18 08:00 100.3 118 18 136/78 98 Mechanical Ventilator 35 100.3 04/19/18 07:13 116 16 35 04/19/18 05:06 95 18 35 04/19/18 04:00 97.9 110 19 138/80 100 Mechanical Ventilator 35 97.9 04/19/18 04:00 35 04/19/18 03:43 110 04/19/18 03:15 96 18 35 04/19/18 01:16 99 24 35 04/19/18 00:00 35 04/19/18 00:00 98.9 105 19 112/73 100 Mechanical Ventilator 35 98.9 04/18/18 23:34 105 04/18/18 23:07 99 18 35 04/18/18 21:39 102 117/72 04/18/18 20:56 98 16 35 04/18/18 20:00 98.1 101 16 115/71 100 Mechanical Ventilator 35 98.1 04/18/18 20:00 35 04/18/18 19:14 93 16 35 04/18/18 19:03 98 04/18/18 17:28 113 17 35 04/18/18 16:00 35 04/18/18 16:00 35 04/18/18 16:00 99.0 103 16 105/66 100 Mechanical Ventilator 35 99.0 04/18/18 16:00 99.0 103 16 105/66 99 Mechanical Ventilator 35 99.0 04/18/18 16:00 103 04/18/18 15:21 103 16 35 04/18/18 13:42 106 16 35 04/18/18 12:09 35 04/18/18 12:00 100.2 109 16 118/84 100 Mechanical Ventilator 35 100.2 04/18/18 12:00 107 04/18/18 11:28 107 16 35 04/18/18 10:00 100.0 112 Mechanical Ventilator 100.0 Status: awake Condition: critical HEENT: atraumatic, normocephalic Lungs: clear Heart: HR/BP stable, HR/BP unstable Abdomen: soft, active bowel sounds Extremities: no C/C/E Decubiti: location, stage Micro: Microbiology Date/Time Source Procedure Growth Status 04/17/18 13:58 Blood Blood Culture - Preliminary NO GROWTH AFTER 24 HOURS Resulted 04/17/18 13:48 Blood Blood Culture - Preliminary NO GROWTH AFTER 24 HOURS Resulted 04/17/18 22:30 Pressure Sore Wound Gram Stain Pending Resulted 04/17/18 22:30 Wound Culture - Preliminary Gram Negative Bacillus 1 Resulted 04/17/18 15:35 Rectum VRE Culture - Final Enterococcus Faecium - Vre Complete Critical Care - Subjective ROS Limited/Unobtainable: No Condition: critical EKG Rhythm: Sinus Rhythm FI02: 35 Vent Support Breath Rate: 16 Vent Support Mode: AC Vent Tidal Volume: 600 Sputum Amount: Small PEEP: 5.0 PIP: 34 Tube Feeding Amount: 40 I&O: Intake and Output 04/18/18 04/19/18 19:00 07:00 Intake Total 760 ml 813.8 ml Output Total 400 ml 500 ml Balance 360 ml 313.8 ml Intake Free Water 200 ml 200 ml IV Total 133.8 ml Tube Feeding 440 ml 480 ml Other 120 ml Output Urine Total 400 ml 500 ml # Bowel Movements 2 1 CXR: no change Labs: Laboratory Tests Test 04/19/18 03:00 04/19/18 03:35 Stool Occult Blood Pending White Blood Count 11.5 K/UL (4.8-10.8) H Red Blood Count 3.30 M/UL (4.70-6.10) L Hemoglobin 9.6 G/DL (14.2-18.0) #L Hematocrit 29.2 % (42.0-52.0) L Mean Corpuscular Volume 89 FL (80-99) Mean Corpuscular Hemoglobin 29.0 PG (27.0-31.0) Mean Corpuscular Hemoglobin Concent 32.7 G/DL (32.0-36.0) Red Cell Distribution Width 15.0 % (11.6-14.8) H Platelet Count 481 K/UL (150-450) H Mean Platelet Volume 7.1 FL (6.5-10.1) Neutrophils (%) (Auto) 72.6 % (45.0-75.0) Lymphocytes (%) (Auto) 14.4 % (20.0-45.0) L Monocytes (%) (Auto) 6.9 % (1.0-10.0) Eosinophils (%) (Auto) 5.9 % (0.0-3.0) H Basophils (%) (Auto) 0.2 % (0.0-2.0) Differential Total Cells Counted 100 Neutrophils % (Manual) 69 % (45-75) Lymphocytes % (Manual) 18 % (20-45) L Monocytes % (Manual) 8 % (1-10) Eosinophils % (Manual) 5 % (0-3) H Basophils % (Manual) 0 % (0-2) Band Neutrophils 0 % (0-8) Platelet Estimate Adequate Platelet Morphology Normal Hypochromasia 1+ Anisocytosis 1+ Erythrocyte Sedimentation Rate 119 MM/HR (0-20) H Reticulocyte Count Pending Prothrombin Time 12.6 SEC (9.30-11.50) H Prothromb Time International Ratio 1.2 (0.9-1.1) H Activated Partial Thromboplast Time 35 SEC (23-33) H Sodium Level 152 MMOL/L (136-145) H Potassium Level 3.3 MMOL/L (3.5-5.1) L Chloride Level 117 MMOL/L (98-107) H Carbon Dioxide Level 24 MMOL/L (21-32) Anion Gap 11 mmol/L (5-15) Blood Urea Nitrogen 17 mg/dL (7-18) Creatinine 0.9 MG/DL (0.55-1.30) Estimat Glomerular Filtration Rate > 60 mL/min (>60) Glucose Level 99 MG/DL (74-106) Calcium Level 8.6 MG/DL (8.5-10.1) Phosphorus Level 3.1 MG/DL (2.5-4.9) Magnesium Level 2.0 MG/DL (1.8-2.4) Iron Level 22 ug/dL (50-175) L Total Iron Binding Capacity 88 ug/dL (250-450) L Percent Iron Saturation 25 % (15-50) Unsaturated Iron Binding 66 ug/dL (112-346) L Total Bilirubin 0.4 MG/DL (0.2-1.0) Aspartate Amino Transf (AST/SGOT) 21 U/L (15-37) Alanine Aminotransferase (ALT/SGPT) 28 U/L (12-78) Alkaline Phosphatase 106 U/L (46-116) Lactate Dehydrogenase 163 U/L (81-234) C-Reactive Protein, Quantitative 11.7 mg/dL (0.00-0.90) H Total Protein 7.1 G/DL (6.4-8.2) Albumin 1.3 G/DL (3.4-5.0) L Globulin 5.8 g/dL Albumin/Globulin Ratio 0.2 (1.0-2.7) L Carcinoembryonic Antigen Pending Vitamin B12 Level 1054 PG/ML (193-986) H Folate 58.5 NG/ML (8.6-58.9) Vancomycin Level Trough 28.3 ug/mL (5.0-12.0) H Shani Moses MD Apr 19, 2018 09:44
[2018-04-19] MEDS ORDERED: Tubing IV Secondary IV ONE (11:03)
[2018-04-19] MEDS ORDERED: Tubing Blood Filter IV ONE (11:03)
[2018-04-19] MEDS ORDERED: Sterile Water Irrig 1000ml IRRIG ONE (11:03)
[2018-04-19] MEDS ORDERED: NS 275ml ONE (11:03)
[2018-04-19 12:00] VITALS: BP 153/97
[2018-04-19] MEDS ORDERED: NS 500ML ONE (15:23)
[2018-04-19 16:00] VITALS: BP 138/81
--- NOTE | 2018-04-19 16:05 | Internal Med Progress Note ---
Subjective Physician Name Aaron Solis Attending Physician Shani Moses MD Current Medications Medications (Trade) Dose Ordered Sig/Tameka Route PRN Reason Start Time Stop Time Status Last Admin Dose Admin Acetaminophen (Tylenol) 650 mg Q4H PRN ORAL FEVER 04/17/18 20:00 05/17/18 19:59 04/18/18 11:58 Albuterol/ Ipratropium (Albuterol/ Ipratropium) 3 ml EVERY 4 HOURS PRN HHN Shortness of Breath 04/17/18 20:00 04/22/18 19:59 Amiodarone HCl (Cordarone) 200 mg DAILY GT 04/18/18 09:00 05/18/18 08:59 04/19/18 08:55 Carvedilol (Coreg) 3.125 mg EVERY 12 HOURS ORAL 04/17/18 21:00 05/17/18 20:59 04/19/18 08:56 Dextrose (Dextrose 50%) 25 ml STAT PRN IV BS 60-69mg/dl 04/17/18 20:15 05/17/18 20:14 Dextrose (Dextrose 50%) 50 ml STAT PRN IV BS less than 60mg/dl 04/17/18 20:00 05/17/18 19:59 Heparin Sodium (Porcine) (Heparin 5000 units/ml) 5,000 units EVERY 12 HOURS SUBQ 04/17/18 21:00 05/17/18 20:59 04/19/18 08:59 Iopamidol (Isovue-300 100ml) 100 ml NOW PRN INJ Radiology Procedure 04/17/18 14:45 Levetiracetam (Keppra) 500 mg Q12HR GT 04/17/18 21:00 05/17/18 20:59 04/19/18 08:56 Lorazepam (Ativan 2mg/ml 1ml) 2 mg EVERY 2 HOURS PRN IV For Anxiety 04/17/18 20:00 04/24/18 19:59 Morphine Sulfate (Morphine Sulfate) 4 mg EVERY 4 HOURS PRN IVP Severe Pain (Pain Scale 7-10) 04/17/18 20:00 04/24/18 19:59 Ondansetron HCl (Zofran) 4 mg Q6H PRN IVP Nausea & Vomiting 04/17/18 20:00 05/17/18 19:59 Pantoprazole (Protonix) 40 mg DAILY IV 04/18/18 09:00 05/18/18 08:59 04/19/18 08:56 Piperacillin Sod/ Tazobactam Sod 3.375 gm/Sodium Chloride 110 ml @ 27.5 mls/hr Q8HR IVPB 04/17/18 22:00 04/24/18 23:59 04/19/18 13:25 Polyethylene Glycol (Miralax) 17 gm DAILYPRN PRN ORAL Constipation 04/17/18 20:00 05/17/18 19:59 Vancomycin HCl (Vanco rx to dose) 1 ea DAILY PRN MISC VANCO RX TO DOSE 04/17/18 20:15 05/17/18 20:14 Allergies: Coded Allergies: No Known Allergies (Unverified , 03/07/17) Subjective 58 YO M with chronic respiratory failure and vent dependence admitted with respiratory distress. Now pneumonia and sepsis. Cover for Int Med-Dr Box. LIGIA Objective Last Vital Signs Date Time Temp Pulse Resp B/P (MAP) Pulse Ox O2 Delivery O2 Flow Rate FiO2 04/19/18 15:23 105 16 35 04/19/18 12:00 99.8 153/97 100 Mechanical Ventilator 99.8 Laboratory Tests Test 04/19/18 03:00 04/19/18 03:35 Stool Occult Blood Negative (NEGATIVE) White Blood Count 11.5 K/UL (4.8-10.8) H Red Blood Count 3.30 M/UL (4.70-6.10) L Hemoglobin 9.6 G/DL (14.2-18.0) #L Hematocrit 29.2 % (42.0-52.0) L Mean Corpuscular Volume 89 FL (80-99) Mean Corpuscular Hemoglobin 29.0 PG (27.0-31.0) Mean Corpuscular Hemoglobin Concent 32.7 G/DL (32.0-36.0) Red Cell Distribution Width 15.0 % (11.6-14.8) H Platelet Count 481 K/UL (150-450) H Mean Platelet Volume 7.1 FL (6.5-10.1) Neutrophils (%) (Auto) 72.6 % (45.0-75.0) Lymphocytes (%) (Auto) 14.4 % (20.0-45.0) L Monocytes (%) (Auto) 6.9 % (1.0-10.0) Eosinophils (%) (Auto) 5.9 % (0.0-3.0) H Basophils (%) (Auto) 0.2 % (0.0-2.0) Differential Total Cells Counted 100 Neutrophils % (Manual) 69 % (45-75) Lymphocytes % (Manual) 18 % (20-45) L Monocytes % (Manual) 8 % (1-10) Eosinophils % (Manual) 5 % (0-3) H Basophils % (Manual) 0 % (0-2) Band Neutrophils 0 % (0-8) Platelet Estimate Adequate Platelet Morphology Normal Hypochromasia 1+ Anisocytosis 1+ Erythrocyte Sedimentation Rate 119 MM/HR (0-20) H Reticulocyte Count 1.1 % (0.0-2.0) Prothrombin Time 12.6 SEC (9.30-11.50) H Prothromb Time International Ratio 1.2 (0.9-1.1) H Activated Partial Thromboplast Time 35 SEC (23-33) H Sodium Level 152 MMOL/L (136-145) H Potassium Level 3.3 MMOL/L (3.5-5.1) L Chloride Level 117 MMOL/L (98-107) H Carbon Dioxide Level 24 MMOL/L (21-32) Anion Gap 11 mmol/L (5-15) Blood Urea Nitrogen 17 mg/dL (7-18) Creatinine 0.9 MG/DL (0.55-1.30) Estimat Glomerular Filtration Rate > 60 mL/min (>60) Glucose Level 99 MG/DL (74-106) Calcium Level 8.6 MG/DL (8.5-10.1) Phosphorus Level 3.1 MG/DL (2.5-4.9) Magnesium Level 2.0 MG/DL (1.8-2.4) Iron Level 22 ug/dL (50-175) L Total Iron Binding Capacity 88 ug/dL (250-450) L Percent Iron Saturation 25 % (15-50) Unsaturated Iron Binding 66 ug/dL (112-346) L Total Bilirubin 0.4 MG/DL (0.2-1.0) Aspartate Amino Transf (AST/SGOT) 21 U/L (15-37) Alanine Aminotransferase (ALT/SGPT) 28 U/L (12-78) Alkaline Phosphatase 106 U/L (46-116) Lactate Dehydrogenase 163 U/L (81-234) C-Reactive Protein, Quantitative 11.7 mg/dL (0.00-0.90) H Total Protein 7.1 G/DL (6.4-8.2) Albumin 1.3 G/DL (3.4-5.0) L Globulin 5.8 g/dL Albumin/Globulin Ratio 0.2 (1.0-2.7) L Carcinoembryonic Antigen Pending Vitamin B12 Level 1054 PG/ML (193-986) H Folate 58.5 NG/ML (8.6-58.9) Vancomycin Level Trough 28.3 ug/mL (5.0-12.0) H Microbiology Date/Time Source Procedure Growth Status 04/17/18 13:58 Blood Blood Culture - Preliminary NO GROWTH AFTER 24 HOURS Resulted 04/17/18 13:48 Blood Blood Culture - Preliminary NO GROWTH AFTER 24 HOURS Resulted 04/18/18 05:00 Sputum Gram Stain - Final Resulted 04/18/18 05:00 Sputum Sputum Culture Pending Resulted 04/17/18 15:35 Nasal Nares MRSA Culture - Final NO METHICILLIN RESISTANT STAPH AUREUS... Complete 04/19/18 03:00 Stool Clostridium difficile Toxin Assay - Final Complete 04/17/18 22:30 Pressure Sore Wound Gram Stain - Final Resulted 04/17/18 22:30 Wound Culture - Preliminary Gram Negative Bacillus 1 Resulted 04/17/18 15:35 Rectum VRE Culture - Final Enterococcus Faecium - Vre Complete Intake and Output 04/18/18 04/19/18 19:00 07:00 Intake Total 760 ml 813.8 ml Output Total 400 ml 500 ml Balance 360 ml 313.8 ml Intake Free Water 200 ml 200 ml IV Total 133.8 ml Tube Feeding 440 ml 480 ml Other 120 ml Output Urine Total 400 ml 500 ml # Bowel Movements 2 1 Objective General Appearance: cachetic, lethargic, thin EENT: normal ENT inspection Neck: non-tender, stiff neck, other - tracheostomy present Cardiovascular: normal peripheral pulses, normal rate, regular rhythm, no gallop/murmur, no JVD Respiratory/Chest: crackles/rales, rhonchi - bilaterally, expiratory wheezing Abdomen: normal bowel sounds, non tender, soft, no organomegaly, no mass Extremities: other - contracted X 4 Skin: normal pigmentation, warm/dry; stage IV sacral decubitus ulcer Assessment/Plan Problem List: (1) Pneumonia Assessment & Plan: See pulmonary and ID note. Continue zosyn and vanco (2) Seizure disorder Assessment & Plan: Continue Keppra (3) Hypertension Assessment & Plan: Continue coreg (4) Diabetes mellitus type II, uncontrolled (5) Sacral decubitus ulcer, stage IV Assessment & Plan: Possible chronic osteomyelitis-continue antibiotic per ID. Await surgery consult (6) CHF (congestive heart failure) (7) Cardiomyopathy (8) Tracheostomy care (9) Cerebral vascular disease (10) Acute on chronic respiratory failure (11) Sepsis Assessment & Plan: await blood culture results. Continue zosyn and vanco (12) Leukocytosis (13) Anemia (14) Atrial fibrillation Assessment & Plan: Continue amiodarone (15) Feeding by G-tube Status: not improved Aaron Solis MD Apr 19, 2018 16:05
--- NOTE | 2018-04-19 17:03 | Cardiology Report ---
APPROVED REPORT EKG Measurement Heart [id number] Sinus tachycardia Possible Anterior infarct, age undetermined Abnormal ECG
--- NOTE | 2018-04-19 17:50 | Consultation ---
History of Present Illness General Date patient seen: Apr 19, 2018 Chief Complaint: Abnormal Labs Reason for Consultation: hip, buttock, sacral wounds Present Illness HPI 58 year old male known to me from prior admission. has had long history of bilateral hip, buttock and sacral ulcers from [facility] bed bound vent dependant care at multiple facilities. presents with fever and is under medical care and management. Surgery called to evaluate wounds and assist with care. patient seen, wounds evaluated, wound care provided. Allergies: Coded Allergies: No Known Allergies (Unverified , 03/07/17) Medication History Scheduled Amino Acids/Protein Hydrolys (Pro-Stat Liquid), 30 ML ORAL THREE TIMES A DAY, ( Reported) Amiodarone Hcl (Amiodarone Hcl), 200 MG GT DAILY, (Reported) Ascorbic Acid* (Vitamin C*), 500 MG GT DAILY, (Reported) Carvedilol* (Carvedilol*), 3.125 MG ORAL EVERY 12 HOURS, (Reported) Cran/Vitc/Mannose/Inulin/Brom (Uti-Stat Liquid), 30 ML GT TID, (Reported) Docusate Sodium* (Docusate Sodium*), 100 MG GT DAILY, (Reported) Folic Acid* (Folic Acid*), 1 MG ORAL DAILY, (Reported) Heparin Sod (Porcine) (Heparin Sodium*), 5,000 UNITS SUBQ EVERY 12 HOURS, ( Reported) Levetiracetam (Keppra), 500 MG GT Q12HR Lorazepam* (Ativan*), 0.5 MG GT PRN, (Reported) Multivitamin With Minerals (Multivitamins With Minerals*), 1 TAB GT DAILY, ( Reported) Omeprazole (Omeprazole), 40 MG GT DAILY, (Reported) Polyethylene Glycol 3350* (Miralax*), 17 GM GT PRN, (Reported) Tramadol Hcl* (Ultram*), 50 MG GT DAILY, (Reported) Zinc Sulfate (Zinc Sulfate*), 220 MG GT DAILY, (Reported) Scheduled PRN Acetaminophen* (Acetaminophen 325MG Tablet*), 650 MG GT Q4H PRN for TEMP > 101F OR MILD PAIN, (Reported) Albuterol Sulfate* (Albuterol Sulfate Hhn*), 3 ML INH Q3HR PRN for Shortness of Breath, (Reported) Hydrocodone Bit/Acetaminophen 5-325* ([place] 5-325 Tablet*), 1 TAB ORAL Q4H PRN for Moderate Pain (Pain Scale 4-6), (Reported) Ondansetron* (Zofran*), 4 MG GT Q6H PRN for Nausea & Vomiting, (Reported) Miscellaneous Medications Chlorhexidine Gluconate (Chlorhexidine Gluconate), 15 ML TP, (Reported) Discontinued Medications Acetaminophen* (Tylenol*), 325 MG GT Q4H PRN for Mild Pain/Temp > 100.5, ( Reported) Discontinued Reason: Pt stopped taking med Arginine/Ascorbate Sod/Coy AC (Arginaid Powder), 1 EACH GT TWICE A DAY, ( Reported) Discontinued Reason: Pt stopped taking med Aspirin* (Aspir 81*), 81 MG GT DAILY, (Reported) Discontinued Reason: Pt stopped taking med Clonidine Hcl (Clonidine Hcl), 0.1 MG PO Q6HR PRN for For High Blood Pressure, ( Reported) Discontinued Reason: Pt stopped taking med Ertapenem (Invanz), 1 GM IM DAILY Discontinued Reason: Pt stopped taking med Ferrous Sulfate (Ferrous Sulfate), 330 MG GT DAILY, (Reported) Discontinued Reason: Pt stopped taking med Furosemide* (Lasix*), 60 MG GT DAILY, (Reported) Discontinued Reason: Pt stopped taking med Lactose-Reduced Food/Fiber (Jevity 1.2 Simone Liquid), 1,300 ML GT, (Reported) Discontinued Reason: Pt stopped taking med Lactulose (Lactulose*), 30 ML GT BID, (Reported) Discontinued Reason: Pt stopped taking med Lisinopril* (Lisinopril*), 10 MG GT DAILY, (Reported) Discontinued Reason: Pt stopped taking med Meropenem (Meropenem), 1 GM IV EVERY 8 HOURS Discontinued Reason: Pt stopped taking med Nitrofurantoin Macrocrystal (Nitrofurantoin), 100 MG GT BID, (Reported) Discontinued Reason: Pt stopped taking med Potassium (Potassium), 40 MG GT BID, (Reported) Discontinued Reason: Pt stopped taking med Vancomycin Hcl/D5w (Vancomycin-D5w 1 G/250 Ml), 1 GM IVPB Q24H Discontinued Reason: Pt stopped taking med Vancomycin/0.9 % Sod Chloride (Vanco 1 Gram/150 Ml-0.9% Nacl), 0.75 GM IV DAILY Discontinued Reason: Pt stopped taking med Warfarin Sod (Coumadin*), 8 MG GT DAILY, (Reported) Discontinued Reason: Pt stopped taking med Patient History History Provided By: Medical Record, PMD Healthcare decision maker Resuscitation status Full Code Advanced Directive on File No Past Medical/Surgical History Past Medical/Surgical History: (1) Chronic respiratory acidosis (2) Transaminitis (3) Chronic respiratory failure (4) Septic shock (5) Bacteremia (6) VT (ventricular tachycardia) (7) MDRO (multiple drug resistant organisms) resistance (8) Healthcare-associated pneumonia (9) Abnormal laboratory test result (10) Pressure ulcer, hip, left, unstageable (11) Hypernatremia (12) Leukocytosis (13) Sepsis (14) Feeding by G-tube (15) Acute on chronic respiratory failure (16) EF of 30 (17) Atrial fibrillation (18) Anemia (19) CHF (congestive heart failure) (20) Seizure disorder (21) Hypertension (22) Cardiomyopathy (23) Pneumonia (24) Diabetes mellitus type II, uncontrolled (25) Cerebral vascular disease (26) Tracheostomy care (27) Sacral decubitus ulcer, stage IV Review of Systems ROS Narrative cannot obtain given patients medical condition Physical Exam General Appearance: no apparent distress HEENT: atraumatic Respiratory/Chest: on vent Abdomen: soft Genitourinary/Rectal: other - condom tierney Extremities: other - bilateral feet and heel wounds Skin Exam: normal pigmentation Neurologic: unresponsiveness Last 24 Hour Vital Signs Date Time Temp Pulse Resp B/P (MAP) Pulse Ox O2 Delivery O2 Flow Rate FiO2 04/19/18 16:57 104 24 35 04/19/18 16:00 103 04/19/18 15:23 105 16 35 04/19/18 13:20 114 24 35 04/19/18 12:00 99.8 110 20 153/97 100 Mechanical Ventilator 35 99.8 04/19/18 12:00 35 04/19/18 11:46 109 04/19/18 10:46 121 23 35 04/19/18 09:02 117 23 35 04/19/18 08:56 117 136/78 04/19/18 08:00 117 04/19/18 08:00 35 04/19/18 08:00 100.3 118 18 136/78 98 Mechanical Ventilator 35 100.3 04/19/18 07:13 116 16 35 04/19/18 05:06 95 18 35 04/19/18 04:00 97.9 110 19 138/80 100 Mechanical Ventilator 35 97.9 04/19/18 04:00 35 04/19/18 03:43 110 04/19/18 03:15 96 18 35 04/19/18 01:16 99 24 35 04/19/18 00:00 35 04/19/18 00:00 98.9 105 19 112/73 100 Mechanical Ventilator 35 98.9 04/18/18 23:34 105 04/18/18 23:07 99 18 35 04/18/18 21:39 102 117/72 04/18/18 20:56 98 16 35 04/18/18 20:00 98.1 101 16 115/71 100 Mechanical Ventilator 35 98.1 04/18/18 20:00 35 04/18/18 19:14 93 16 35 04/18/18 19:03 98 Intake and Output 04/18/18 04/19/18 19:00 07:00 Intake Total 760 ml 813.8 ml Output Total 400 ml 500 ml Balance 360 ml 313.8 ml Intake Free Water 200 ml 200 ml IV Total 133.8 ml Tube Feeding 440 ml 480 ml Other 120 ml Output Urine Total 400 ml 500 ml # Bowel Movements 2 1 Laboratory Tests Test 04/19/18 03:00 04/19/18 03:35 04/19/18 15:30 Stool Occult Blood Negative (NEGATIVE) White Blood Count 11.5 K/UL (4.8-10.8) H Red Blood Count 3.30 M/UL (4.70-6.10) L Hemoglobin 9.6 G/DL (14.2-18.0) #L Hematocrit 29.2 % (42.0-52.0) L Mean Corpuscular Volume 89 FL (80-99) Mean Corpuscular Hemoglobin 29.0 PG (27.0-31.0) Mean Corpuscular Hemoglobin Concent 32.7 G/DL (32.0-36.0) Red Cell Distribution Width 15.0 % (11.6-14.8) H Platelet Count 481 K/UL (150-450) H Mean Platelet Volume 7.1 FL (6.5-10.1) Neutrophils (%) (Auto) 72.6 % (45.0-75.0) Lymphocytes (%) (Auto) 14.4 % (20.0-45.0) L Monocytes (%) (Auto) 6.9 % (1.0-10.0) Eosinophils (%) (Auto) 5.9 % (0.0-3.0) H Basophils (%) (Auto) 0.2 % (0.0-2.0) Differential Total Cells Counted 100 Neutrophils % (Manual) 69 % (45-75) Lymphocytes % (Manual) 18 % (20-45) L Monocytes % (Manual) 8 % (1-10) Eosinophils % (Manual) 5 % (0-3) H Basophils % (Manual) 0 % (0-2) Band Neutrophils 0 % (0-8) Platelet Estimate Adequate Platelet Morphology Normal Hypochromasia 1+ Anisocytosis 1+ Erythrocyte Sedimentation Rate 119 MM/HR (0-20) H Reticulocyte Count 1.1 % (0.0-2.0) Prothrombin Time 12.6 SEC (9.30-11.50) H Prothromb Time International Ratio 1.2 (0.9-1.1) H Activated Partial Thromboplast Time 35 SEC (23-33) H Sodium Level 152 MMOL/L (136-145) H Potassium Level 3.3 MMOL/L (3.5-5.1) L Chloride Level 117 MMOL/L (98-107) H Carbon Dioxide Level 24 MMOL/L (21-32) Anion Gap 11 mmol/L (5-15) Blood Urea Nitrogen 17 mg/dL (7-18) Creatinine 0.9 MG/DL (0.55-1.30) Estimat Glomerular Filtration Rate > 60 mL/min (>60) Glucose Level 99 MG/DL (74-106) Calcium Level 8.6 MG/DL (8.5-10.1) Phosphorus Level 3.1 MG/DL (2.5-4.9) Magnesium Level 2.0 MG/DL (1.8-2.4) Iron Level 22 ug/dL (50-175) L Total Iron Binding Capacity 88 ug/dL (250-450) L Percent Iron Saturation 25 % (15-50) Unsaturated Iron Binding 66 ug/dL (112-346) L Total Bilirubin 0.4 MG/DL (0.2-1.0) Aspartate Amino Transf (AST/SGOT) 21 U/L (15-37) Alanine Aminotransferase (ALT/SGPT) 28 U/L (12-78) Alkaline Phosphatase 106 U/L (46-116) Lactate Dehydrogenase 163 U/L (81-234) C-Reactive Protein, Quantitative 11.7 mg/dL (0.00-0.90) H Total Protein 7.1 G/DL (6.4-8.2) Albumin 1.3 G/DL (3.4-5.0) L Globulin 5.8 g/dL Albumin/Globulin Ratio 0.2 (1.0-2.7) L Carcinoembryonic Antigen Pending Vitamin B12 Level 1054 PG/ML (193-986) H Folate 58.5 NG/ML (8.6-58.9) Vancomycin Level Trough 28.3 ug/mL (5.0-12.0) H Random Vancomycin Level 20.1 ug/mL Microbiology Date/Time Source Procedure Growth Status 04/19/18 03:00 Stool Clostridium difficile Toxin Assay - Final Complete Height (Feet): 5 Height (Inches): 8.00 Weight (Pounds): 124 Medications Current Medications Medications (Trade) Dose Ordered Sig/Tameka Route PRN Reason Start Time Stop Time Status Last Admin Dose Admin Acetaminophen (Tylenol) 650 mg Q4H PRN ORAL FEVER 04/17/18 20:00 05/17/18 19:59 04/18/18 11:58 Albuterol/ Ipratropium (Albuterol/ Ipratropium) 3 ml EVERY 4 HOURS PRN HHN Shortness of Breath 04/17/18 20:00 04/22/18 19:59 Amiodarone HCl (Cordarone) 200 mg DAILY GT 04/18/18 09:00 05/18/18 08:59 04/19/18 08:55 Carvedilol (Coreg) 3.125 mg EVERY 12 HOURS ORAL 04/17/18 21:00 05/17/18 20:59 04/19/18 08:56 Dextrose (Dextrose 50%) 25 ml STAT PRN IV BS 60-69mg/dl 04/17/18 20:15 05/17/18 20:14 Dextrose (Dextrose 50%) 50 ml STAT PRN IV BS less than 60mg/dl 04/17/18 20:00 05/17/18 19:59 Heparin Sodium (Porcine) (Heparin 5000 units/ml) 5,000 units EVERY 12 HOURS SUBQ 04/17/18 21:00 05/17/18 20:59 04/19/18 08:59 Iopamidol (Isovue-300 100ml) 100 ml NOW PRN INJ Radiology Procedure 04/17/18 14:45 Levetiracetam (Keppra) 500 mg Q12HR GT 04/17/18 21:00 05/17/18 20:59 04/19/18 08:56 Lorazepam (Ativan 2mg/ml 1ml) 2 mg EVERY 2 HOURS PRN IV For Anxiety 04/17/18 20:00 04/24/18 19:59 Morphine Sulfate (Morphine Sulfate) 4 mg EVERY 4 HOURS PRN IVP Severe Pain (Pain Scale 7-10) 04/17/18 20:00 04/24/18 19:59 Ondansetron HCl (Zofran) 4 mg Q6H PRN IVP Nausea & Vomiting 04/17/18 20:00 05/17/18 19:59 Pantoprazole (Protonix) 40 mg DAILY IV 04/18/18 09:00 05/18/18 08:59 04/19/18 08:56 Piperacillin Sod/ Tazobactam Sod 3.375 gm/Sodium Chloride 110 ml @ 27.5 mls/hr Q8HR IVPB 04/17/18 22:00 04/24/18 23:59 04/19/18 13:25 Polyethylene Glycol (Miralax) 17 gm DAILYPRN PRN ORAL Constipation 04/17/18 20:00 05/17/18 19:59 Vancomycin HCl (Vanco rx to dose) 1 ea DAILY PRN MISC VANCO RX TO DOSE 04/17/18 20:15 05/17/18 20:14 Vancomycin/Sodium Chloride 250 ml @ 166.667 mls/hr Q24H IVPB 04/20/18 03:00 04/25/18 02:59 Assessment/Plan Problem List: (1) Sacral decubitus ulcer, stage IV Assessment & Plan: stage IV sacral decubitus ulcer - clean, no signs of active infection, no tracking, down to coccyx, some granulation tissue, no significant fibrinous tissue stage IV left hip decubitus ulcer - clean, no signs of active infection, mild 3 o'clock tracking, some granulation tissue, mild fibrinous tissue stage IV left buttock decubitus ulcer - clean, no signs of active infection, no tracking, some granulation tissue, mild fibrinous tissue stage IV right hip decubitus ulcer - clean, no signs of active infection, no tracking, some granulation tissue, moderate fibrinous tissue stage IV right buttock decubitus ulcer - clean, no signs of active infection, no tracking, some granulation tissue, moderate fibrinous tissue bilateral heel/foot wounds - no signs of active infection. All wounds present upon admission. As for care, for now please was wounds, place dry guaze to wound bed, then cover with foam dressing or ABD 2-3 times per day. may need debridement of right hip and buttock wounds to help with healing but for now will monitor. thank you for this consultation. will follow with recs. ICD Codes: L89.154 - Pressure ulcer of sacral region, stage 4 SNOMED: [id number], [id number] Derek Dong Apr 19, 2018 17:50
--- NOTE | 2018-04-19 19:08 | Cardiology Progress Note ---
Assessment/Plan Assessment/Plan Continue coreg for cardiomyopathy - titrate as tolerated in outpatient setting Amiodarone for hx of VT ICD in place - no recent shocks Continue antibiotics for fever and elevated WBC Follow up blood and urine cultures CXR reviewed - clear no PNA/effusions Subjective Cardiovascular: Reports: no symptoms Respiratory: Reports: no symptoms Gastrointestinal/Abdominal: Reports: no symptoms Genitourinary: Reports: no symptoms Subjective no acute events Objective Last 24 Hour Vital Signs Date Time Temp Pulse Resp B/P (MAP) Pulse Ox O2 Delivery O2 Flow Rate FiO2 04/19/18 16:57 104 24 35 04/19/18 16:00 103 04/19/18 16:00 35 04/19/18 16:00 100.0 105 18 138/81 100 Mechanical Ventilator 35 100.0 04/19/18 15:23 105 16 35 04/19/18 13:20 114 24 35 04/19/18 12:00 99.8 110 20 153/97 100 Mechanical Ventilator 35 99.8 04/19/18 12:00 35 04/19/18 11:46 109 04/19/18 10:46 121 23 35 04/19/18 09:02 117 23 35 04/19/18 08:56 117 136/78 04/19/18 08:00 117 04/19/18 08:00 35 04/19/18 08:00 100.3 118 18 136/78 98 Mechanical Ventilator 35 100.3 04/19/18 07:13 116 16 35 04/19/18 05:06 95 18 35 04/19/18 04:00 97.9 110 19 138/80 100 Mechanical Ventilator 35 97.9 04/19/18 04:00 35 04/19/18 03:43 110 04/19/18 03:15 96 18 35 04/19/18 01:16 99 24 35 04/19/18 00:00 35 04/19/18 00:00 98.9 105 19 112/73 100 Mechanical Ventilator 35 98.9 04/18/18 23:34 105 04/18/18 23:07 99 18 35 04/18/18 21:39 102 117/72 04/18/18 20:56 98 16 35 04/18/18 20:00 98.1 101 16 115/71 100 Mechanical Ventilator 35 98.1 04/18/18 20:00 35 04/18/18 19:14 93 16 35 General Appearance: no apparent distress EENT: PERRL/EOMI Neck: non-tender Rhythm: NSR Cardiovascular: normal peripheral pulses Respiratory/Chest: chest wall non-tender Abdomen: normal bowel sounds Extremities: normal range of motion, non-tender 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 Intake and Output 04/18/18 04/19/18 19:00 07:00 Intake Total 760 ml 813.8 ml Output Total 400 ml 500 ml Balance 360 ml 313.8 ml Intake Free Water 200 ml 200 ml IV Total 133.8 ml Tube Feeding 440 ml 480 ml Other 120 ml Output Urine Total 400 ml 500 ml # Bowel Movements 2 1 Laboratory Tests Test 04/19/18 03:00 04/19/18 03:35 04/19/18 15:30 Stool Occult Blood Negative (NEGATIVE) White Blood Count 11.5 K/UL (4.8-10.8) H Red Blood Count 3.30 M/UL (4.70-6.10) L Hemoglobin 9.6 G/DL (14.2-18.0) #L Hematocrit 29.2 % (42.0-52.0) L Mean Corpuscular Volume 89 FL (80-99) Mean Corpuscular Hemoglobin 29.0 PG (27.0-31.0) Mean Corpuscular Hemoglobin Concent 32.7 G/DL (32.0-36.0) Red Cell Distribution Width 15.0 % (11.6-14.8) H Platelet Count 481 K/UL (150-450) H Mean Platelet Volume 7.1 FL (6.5-10.1) Neutrophils (%) (Auto) 72.6 % (45.0-75.0) Lymphocytes (%) (Auto) 14.4 % (20.0-45.0) L Monocytes (%) (Auto) 6.9 % (1.0-10.0) Eosinophils (%) (Auto) 5.9 % (0.0-3.0) H Basophils (%) (Auto) 0.2 % (0.0-2.0) Differential Total Cells Counted 100 Neutrophils % (Manual) 69 % (45-75) Lymphocytes % (Manual) 18 % (20-45) L Monocytes % (Manual) 8 % (1-10) Eosinophils % (Manual) 5 % (0-3) H Basophils % (Manual) 0 % (0-2) Band Neutrophils 0 % (0-8) Platelet Estimate Adequate Platelet Morphology Normal Hypochromasia 1+ Anisocytosis 1+ Erythrocyte Sedimentation Rate 119 MM/HR (0-20) H Reticulocyte Count 1.1 % (0.0-2.0) Prothrombin Time 12.6 SEC (9.30-11.50) H Prothromb Time International Ratio 1.2 (0.9-1.1) H Activated Partial Thromboplast Time 35 SEC (23-33) H Sodium Level 152 MMOL/L (136-145) H Potassium Level 3.3 MMOL/L (3.5-5.1) L Chloride Level 117 MMOL/L (98-107) H Carbon Dioxide Level 24 MMOL/L (21-32) Anion Gap 11 mmol/L (5-15) Blood Urea Nitrogen 17 mg/dL (7-18) Creatinine 0.9 MG/DL (0.55-1.30) Estimat Glomerular Filtration Rate > 60 mL/min (>60) Glucose Level 99 MG/DL (74-106) Calcium Level 8.6 MG/DL (8.5-10.1) Phosphorus Level 3.1 MG/DL (2.5-4.9) Magnesium Level 2.0 MG/DL (1.8-2.4) Iron Level 22 ug/dL (50-175) L Total Iron Binding Capacity 88 ug/dL (250-450) L Percent Iron Saturation 25 % (15-50) Unsaturated Iron Binding 66 ug/dL (112-346) L Total Bilirubin 0.4 MG/DL (0.2-1.0) Aspartate Amino Transf (AST/SGOT) 21 U/L (15-37) Alanine Aminotransferase (ALT/SGPT) 28 U/L (12-78) Alkaline Phosphatase 106 U/L (46-116) Lactate Dehydrogenase 163 U/L (81-234) C-Reactive Protein, Quantitative 11.7 mg/dL (0.00-0.90) H Total Protein 7.1 G/DL (6.4-8.2) Albumin 1.3 G/DL (3.4-5.0) L Globulin 5.8 g/dL Albumin/Globulin Ratio 0.2 (1.0-2.7) L Carcinoembryonic Antigen Pending Vitamin B12 Level 1054 PG/ML (193-986) H Folate 58.5 NG/ML (8.6-58.9) Vancomycin Level Trough 28.3 ug/mL (5.0-12.0) H Random Vancomycin Level 20.1 ug/mL Microbiology Date/Time Source Procedure Growth Status 04/17/18 13:58 Blood Blood Culture - Preliminary NO GROWTH AFTER 24 HOURS Resulted 04/17/18 13:48 Blood Blood Culture - Preliminary NO GROWTH AFTER 24 HOURS Resulted 04/18/18 05:00 Sputum Gram Stain - Final Resulted 04/18/18 05:00 Sputum Sputum Culture Pending Resulted 04/17/18 15:35 Nasal Nares MRSA Culture - Final NO METHICILLIN RESISTANT STAPH AUREUS... Complete 04/19/18 03:00 Stool Clostridium difficile Toxin Assay - Final Complete 04/17/18 22:30 Pressure Sore Wound Gram Stain - Final Resulted 04/17/18 22:30 Wound Culture - Preliminary Gram Negative Bacillus 1 Resulted 04/17/18 15:35 Rectum VRE Culture - Final Enterococcus Faecium - Vre Complete Fausto Berg M.D. Apr 19, 2018 19:08
[2018-04-19 20:00] VITALS: BP 124/84
[2018-04-19] MEDS: Morphine Sulfate 4mg/ml Inj IVP PRN (23:09)
[2018-04-20] VITALS: BP 122/88
[2018-04-20] MEDS ORDERED: Vancomycin 750mg/NS 250ml IVPB SCH (03:00)
[2018-04-20 04:00] VITALS: BP 117/71
[2018-04-20 05:03] LABS: BASOPHILS % (AUTO) 0.4 % (0.0-2.0); EOSINOPHILS % (AUTO) 6.4 % (0.0-3.0); HEMATOCRIT 31.5 % (42.0-52.0); LYMPHOCYTES % (AUTO) 16.4 % (20.0-45.0); MEAN CORPUSCULAR VOLUME 89 FL (80-99); MONOCYTES % (AUTO) 6.9 % (1.0-10.0); NEUTROPHILS % (AUTO) 69.9 % (45.0-75.0); PLATELET COUNT 504 K/UL (150-450); RED BLOOD COUNT 3.52 M/UL (4.70-6.10); RED CELL DISTRIBUTION WIDTH 15.3 % (11.6-14.8); WHITE BLOOD COUNT 11.8 K/UL (4.8-10.8)
[2018-04-20 05:32] LABS: ALANINE AMINOTRANSFERASE 25 U/L (12-78); ALBUMIN 1.3 G/DL (3.4-5.0); ALBUMIN/GLOBULIN RATIO 0.2 (1.0-2.7); ALKALINE PHOSPHATASE 108 U/L (46-116); ANION GAP 9 mmol/L (5-15); ASPARTATE AMINO TRANSFERASE 21 U/L (15-37); BILIRUBIN,TOTAL 0.3 MG/DL (0.2-1.0); BLOOD UREA NITROGEN 15 mg/dL (7-18); CALCIUM 8.6 MG/DL (8.5-10.1); CARBON DIOXIDE 24 MMOL/L (21-32); CHLORIDE 119 MMOL/L (98-107); CREATININE 0.9 MG/DL (0.55-1.30); POTASSIUM 3.8 MMOL/L (3.5-5.1); SODIUM 152 MMOL/L (136-145)
[2018-04-20] MEDS: Zoysn 3.37gm in NS 100ML IVPB SCH (06:04)
[2018-04-20 08:00] VITALS: BP 123/83
--- NOTE | 2018-04-20 08:32 | Nephrology Progress Note ---
Assessment/Plan Assessment/Plan 1. Hypernatremia- approx 3-4 L free water depleted. Increase free water thru peg again Na at 152 and stable 2. Nosocomial PNA- on Abx, defer to ID and Pulm. Improved 3. Hypokalemia being replaced prn. Corrected 4. Dehydration- increase free water Subjective Date patient seen: Apr 20, 2018 Time patient seen: 08:28 ROS Limited/Unobtainable: Yes Allergies: Coded Allergies: No Known Allergies (Unverified , 03/07/17) Subjective Patient trached on the vent. No acute distress Objective Last 24 Hour Vital Signs Date Time Temp Pulse Resp B/P (MAP) Pulse Ox O2 Delivery O2 Flow Rate FiO2 04/20/18 06:55 118 17 35 04/20/18 05:01 117 18 35 04/20/18 04:00 98.3 115 16 117/71 99 Mechanical Ventilator 35 98.3 04/20/18 04:00 112 04/20/18 04:00 35 04/20/18 03:10 113 18 35 04/20/18 01:13 107 16 35 04/20/18 00:00 98.3 107 17 122/88 100 Mechanical Ventilator 35 98.3 04/20/18 00:00 35 04/20/18 00:00 91 04/19/18 23:05 100 17 35 04/19/18 22:00 107 124/84 04/19/18 21:16 105 18 35 04/19/18 20:00 105 04/19/18 20:00 35 04/19/18 20:00 98.1 107 20 124/84 100 Mechanical Ventilator 35 98.1 04/19/18 19:29 107 23 35 04/19/18 16:57 104 24 35 04/19/18 16:00 103 04/19/18 16:00 35 04/19/18 16:00 100.0 105 18 138/81 100 Mechanical Ventilator 35 100.0 04/19/18 15:23 105 16 35 04/19/18 13:20 114 24 35 04/19/18 12:00 99.8 110 20 153/97 100 Mechanical Ventilator 35 99.8 04/19/18 12:00 35 04/19/18 11:46 109 04/19/18 10:46 121 23 35 04/19/18 09:02 117 23 35 04/19/18 08:56 117 136/78 Intake and Output 04/19/18 04/20/18 19:00 07:00 Intake Total 840.0 ml 917.500 ml Output Total 550 ml 450 ml Balance 290.0 ml 467.500 ml Intake Free Water 400 ml 200 ml IV Total 110.0 ml 387.500 ml Tube Feeding 330 ml 330 ml Output Urine Total 550 ml 450 ml # Bowel Movements 1 Laboratory Tests 04/19/18 15:30: Random Vancomycin Level 20.1 04/20/18 03:05: White Blood Count 11.8H, Red Blood Count 3.52L, Hemoglobin 10.0L, Hematocrit 31.5L, Mean Corpuscular Volume 89, Mean Corpuscular Hemoglobin 28.3, Mean Corpuscular Hemoglobin Concent 31.6L, Red Cell Distribution Width 15.3H, Platelet Count 504H, Mean Platelet Volume 6.8, Neutrophils (%) (Auto) 69.9, Lymphocytes (%) (Auto) 16.4L, Monocytes (%) (Auto) 6.9, Eosinophils (%) (Auto) 6.4H, Basophils (%) (Auto) 0.4, Sodium Level 152H, Potassium Level 3.8, Chloride Level 119H, Carbon Dioxide Level 24, Anion Gap 9, Blood Urea Nitrogen 15, Creatinine 0.9, Estimat Glomerular Filtration Rate > 60, Glucose Level 102, Calcium Level 8.6, Total Bilirubin 0.3, Aspartate Amino Transf (AST/SGOT) 21, Alanine Aminotransferase (ALT/SGPT) 25, Alkaline Phosphatase 108, Pro-B-Type Natriuretic Peptide 3116H, Total Protein 7.4, Albumin 1.3L, Globulin 6.1, Albumin/Globulin Ratio 0.2L Height (Feet): 5 Height (Inches): 8.00 Weight (Pounds): 125 General Appearance: no apparent distress EENT: normal ENT inspection, TMs normal Neck: normal alignment, supple Cardiovascular: normal rate, regular rhythm Respiratory/Chest: rhonchi - bilaterally Abdomen: non tender, soft Edema: no edema noted Arm (L), no edema noted Arm (R), no edema noted Leg (L), no edema noted Leg (R), no edema noted Pedal (L), no edema noted Pedal (R), no edema noted Generalized Alexandro High M.D. Apr 20, 2018 08:32
[2018-04-20] MEDS: Amiodarone 200mg tab GT SCH (08:34)
[2018-04-20] MEDS: Pantoprazole Inj IV SCH (08:35)
[2018-04-20] MEDS: levETIRAcetam 500mg/5ml Liquid GT SCH ×2 (08:35→21:28)
[2018-04-20] MEDS: Heparin 5000 units/ml inj SUBQ SCH ×2 (08:38→21:29)
--- NOTE | 2018-04-20 11:10 | Pulmonolgy Critical Care Note ---
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 Critical Care - Objective Last 24 Hour Vital Signs Date Time Temp Pulse Resp B/P (MAP) Pulse Ox O2 Delivery O2 Flow Rate FiO2 04/20/18 10:48 121 20 35 04/20/18 08:50 125 19 35 04/20/18 08:36 120 123/81 04/20/18 08:00 116 04/20/18 08:00 35 04/20/18 08:00 99.0 120 16 123/83 100 Mechanical Ventilator 35 99.0 04/20/18 06:55 118 17 35 04/20/18 05:01 117 18 35 04/20/18 04:00 98.3 115 16 117/71 99 Mechanical Ventilator 35 98.3 04/20/18 04:00 112 04/20/18 04:00 35 04/20/18 03:10 113 18 35 04/20/18 01:13 107 16 35 04/20/18 00:00 98.3 107 17 122/88 100 Mechanical Ventilator 35 98.3 04/20/18 00:00 35 04/20/18 00:00 91 04/19/18 23:05 100 17 35 04/19/18 22:00 107 124/84 04/19/18 21:16 105 18 35 04/19/18 20:00 105 04/19/18 20:00 35 04/19/18 20:00 98.1 107 20 124/84 100 Mechanical Ventilator 35 98.1 04/19/18 19:29 107 23 35 04/19/18 16:57 104 24 35 04/19/18 16:00 103 04/19/18 16:00 35 04/19/18 16:00 100.0 105 18 138/81 100 Mechanical Ventilator 35 100.0 04/19/18 15:23 105 16 35 04/19/18 13:20 114 24 35 04/19/18 12:00 99.8 110 20 153/97 100 Mechanical Ventilator 35 99.8 04/19/18 12:00 35 04/19/18 11:46 109 Status: awake Condition: critical HEENT: atraumatic Neck: full ROM Lungs: clear Heart: HR/BP stable Abdomen: soft, active bowel sounds Extremities: no C/C/E Decubiti: location Micro: Microbiology Date/Time Source Procedure Growth Status 04/17/18 13:58 Blood Blood Culture - Preliminary NO GROWTH AFTER 48 HOURS Resulted 04/17/18 13:48 Blood Blood Culture - Preliminary NO GROWTH AFTER 48 HOURS Resulted 04/18/18 05:00 Sputum Gram Stain - Final Resulted 04/18/18 05:00 Sputum Culture - Preliminary Gram Negative Bacillus 1 Resulted 04/17/18 15:35 Nasal Nares MRSA Culture - Final NO METHICILLIN RESISTANT STAPH AUREUS... Complete 04/19/18 03:00 Stool Clostridium difficile Toxin Assay - Final Complete 04/17/18 22:30 Pressure Sore Wound Gram Stain - Final Complete 04/17/18 22:30 Wound Culture - Final Providencia Stuartii Esb Complete 04/17/18 15:35 Rectum VRE Culture - Final Enterococcus Faecium - Vre Complete Critical Care - Subjective ROS Limited/Unobtainable: No Condition: critical, improving EKG Rhythm: Sinus Rhythm FI02: 35 Vent Support Breath Rate: 16 Vent Support Mode: AC Vent Tidal Volume: 600 Sputum Amount: Small PEEP: 5.0 PIP: 25 Tube Feeding Amount: 30 I&O: Intake and Output 04/19/18 04/20/18 19:00 07:00 Intake Total 840.0 ml 977.500 ml Output Total 550 ml 450 ml Balance 290.0 ml 527.500 ml Intake Free Water 400 ml 230 ml IV Total 110.0 ml 387.500 ml Tube Feeding 330 ml 360 ml Output Urine Total 550 ml 450 ml # Bowel Movements 1 CXR: no change Labs: Laboratory Tests Test 04/19/18 15:30 04/20/18 03:05 Random Vancomycin Level 20.1 ug/mL White Blood Count 11.8 K/UL (4.8-10.8) H Red Blood Count 3.52 M/UL (4.70-6.10) L Hemoglobin 10.0 G/DL (14.2-18.0) L Hematocrit 31.5 % (42.0-52.0) L Mean Corpuscular Volume 89 FL (80-99) Mean Corpuscular Hemoglobin 28.3 PG (27.0-31.0) Mean Corpuscular Hemoglobin Concent 31.6 G/DL (32.0-36.0) L Red Cell Distribution Width 15.3 % (11.6-14.8) H Platelet Count 504 K/UL (150-450) H Mean Platelet Volume 6.8 FL (6.5-10.1) Neutrophils (%) (Auto) 69.9 % (45.0-75.0) Lymphocytes (%) (Auto) 16.4 % (20.0-45.0) L Monocytes (%) (Auto) 6.9 % (1.0-10.0) Eosinophils (%) (Auto) 6.4 % (0.0-3.0) H Basophils (%) (Auto) 0.4 % (0.0-2.0) Sodium Level 152 MMOL/L (136-145) H Potassium Level 3.8 MMOL/L (3.5-5.1) Chloride Level 119 MMOL/L (98-107) H Carbon Dioxide Level 24 MMOL/L (21-32) Anion Gap 9 mmol/L (5-15) Blood Urea Nitrogen 15 mg/dL (7-18) Creatinine 0.9 MG/DL (0.55-1.30) Estimat Glomerular Filtration Rate > 60 mL/min (>60) Glucose Level 102 MG/DL (74-106) Calcium Level 8.6 MG/DL (8.5-10.1) Total Bilirubin 0.3 MG/DL (0.2-1.0) Aspartate Amino Transf (AST/SGOT) 21 U/L (15-37) Alanine Aminotransferase (ALT/SGPT) 25 U/L (12-78) Alkaline Phosphatase 108 U/L (46-116) Pro-B-Type Natriuretic Peptide 3116 pg/mL (0-125) H Total Protein 7.4 G/DL (6.4-8.2) Albumin 1.3 G/DL (3.4-5.0) L Globulin 6.1 g/dL Albumin/Globulin Ratio 0.2 (1.0-2.7) L Shani Moses MD Apr 20, 2018 11:09
[2018-04-20 12:00] VITALS: BP 125/76
--- NOTE | 2018-04-20 12:35 | Internal Med Progress Note ---
Subjective Date of Service: Apr 20, 2018 Physician Name Aaron Solis Attending Physician Shani Moses MD Current Medications Medications (Trade) Dose Ordered Sig/Tameka Route PRN Reason Start Time Stop Time Status Last Admin Dose Admin Acetaminophen (Tylenol) 650 mg Q4H PRN ORAL FEVER 04/17/18 20:00 05/17/18 19:59 04/18/18 11:58 Albuterol/ Ipratropium (Albuterol/ Ipratropium) 3 ml EVERY 4 HOURS PRN HHN Shortness of Breath 04/17/18 20:00 04/22/18 19:59 Amiodarone HCl (Cordarone) 200 mg DAILY GT 04/18/18 09:00 05/18/18 08:59 04/20/18 08:34 Carvedilol (Coreg) 3.125 mg EVERY 12 HOURS ORAL 04/17/18 21:00 05/17/18 20:59 04/20/18 08:36 Dextrose (Dextrose 50%) 25 ml STAT PRN IV BS 60-69mg/dl 04/17/18 20:15 05/17/18 20:14 Dextrose (Dextrose 50%) 50 ml STAT PRN IV BS less than 60mg/dl 04/17/18 20:00 05/17/18 19:59 Heparin Sodium (Porcine) (Heparin 5000 units/ml) 5,000 units EVERY 12 HOURS SUBQ 04/17/18 21:00 05/17/18 20:59 04/20/18 08:38 Iopamidol (Isovue-300 100ml) 100 ml NOW PRN INJ Radiology Procedure 04/17/18 14:45 Levetiracetam (Keppra) 500 mg Q12HR GT 04/17/18 21:00 05/17/18 20:59 04/20/18 08:35 Lorazepam (Ativan 2mg/ml 1ml) 2 mg EVERY 2 HOURS PRN IV For Anxiety 04/17/18 20:00 04/24/18 19:59 Morphine Sulfate (Morphine Sulfate) 4 mg EVERY 4 HOURS PRN IVP Severe Pain (Pain Scale 7-10) 04/17/18 20:00 04/24/18 19:59 04/19/18 23:09 Ondansetron HCl (Zofran) 4 mg Q6H PRN IVP Nausea & Vomiting 04/17/18 20:00 05/17/18 19:59 Pantoprazole (Protonix) 40 mg DAILY IV 04/18/18 09:00 05/18/18 08:59 04/20/18 08:35 Piperacillin Sod/ Tazobactam Sod 3.375 gm/Sodium Chloride 110 ml @ 27.5 mls/hr Q8HR IVPB 04/17/18 22:00 04/24/18 23:59 04/20/18 06:04 Polyethylene Glycol (Miralax) 17 gm DAILYPRN PRN ORAL Constipation 04/17/18 20:00 05/17/18 19:59 Vancomycin HCl (Vanco rx to dose) 1 ea DAILY PRN MISC VANCO RX TO DOSE 04/17/18 20:15 05/17/18 20:14 Vancomycin/Sodium Chloride 250 ml @ 166.667 mls/hr Q24H IVPB 04/20/18 03:00 04/25/18 02:59 04/20/18 02:55 Allergies: Coded Allergies: No Known Allergies (Unverified , 03/07/17) ROS Limited/Unobtainable: Yes Subjective 58 YO M with chronic respiratory failure and vent dependence admitted with respiratory distress. Now pneumonia and sepsis. Cover for Int Med-Dr Box. LIGIA Objective Last Vital Signs Date Time Temp Pulse Resp B/P (MAP) Pulse Ox O2 Delivery O2 Flow Rate FiO2 04/20/18 12:00 122 04/20/18 12:00 35 04/20/18 10:48 20 04/20/18 08:36 123/81 04/20/18 08:00 99.0 100 Mechanical Ventilator 99.0 Laboratory Tests Test 04/19/18 15:30 04/20/18 03:05 Random Vancomycin Level 20.1 ug/mL White Blood Count 11.8 K/UL (4.8-10.8) H Red Blood Count 3.52 M/UL (4.70-6.10) L Hemoglobin 10.0 G/DL (14.2-18.0) L Hematocrit 31.5 % (42.0-52.0) L Mean Corpuscular Volume 89 FL (80-99) Mean Corpuscular Hemoglobin 28.3 PG (27.0-31.0) Mean Corpuscular Hemoglobin Concent 31.6 G/DL (32.0-36.0) L Red Cell Distribution Width 15.3 % (11.6-14.8) H Platelet Count 504 K/UL (150-450) H Mean Platelet Volume 6.8 FL (6.5-10.1) Neutrophils (%) (Auto) 69.9 % (45.0-75.0) Lymphocytes (%) (Auto) 16.4 % (20.0-45.0) L Monocytes (%) (Auto) 6.9 % (1.0-10.0) Eosinophils (%) (Auto) 6.4 % (0.0-3.0) H Basophils (%) (Auto) 0.4 % (0.0-2.0) Sodium Level 152 MMOL/L (136-145) H Potassium Level 3.8 MMOL/L (3.5-5.1) Chloride Level 119 MMOL/L (98-107) H Carbon Dioxide Level 24 MMOL/L (21-32) Anion Gap 9 mmol/L (5-15) Blood Urea Nitrogen 15 mg/dL (7-18) Creatinine 0.9 MG/DL (0.55-1.30) Estimat Glomerular Filtration Rate > 60 mL/min (>60) Glucose Level 102 MG/DL (74-106) Calcium Level 8.6 MG/DL (8.5-10.1) Total Bilirubin 0.3 MG/DL (0.2-1.0) Aspartate Amino Transf (AST/SGOT) 21 U/L (15-37) Alanine Aminotransferase (ALT/SGPT) 25 U/L (12-78) Alkaline Phosphatase 108 U/L (46-116) Pro-B-Type Natriuretic Peptide 3116 pg/mL (0-125) H Total Protein 7.4 G/DL (6.4-8.2) Albumin 1.3 G/DL (3.4-5.0) L Globulin 6.1 g/dL Albumin/Globulin Ratio 0.2 (1.0-2.7) L Microbiology Date/Time Source Procedure Growth Status 04/17/18 13:58 Blood Blood Culture - Preliminary NO GROWTH AFTER 48 HOURS Resulted 04/17/18 13:48 Blood Blood Culture - Preliminary NO GROWTH AFTER 48 HOURS Resulted 04/18/18 05:00 Sputum Gram Stain - Final Resulted 04/18/18 05:00 Sputum Culture - Preliminary Gram Negative Bacillus 1 Resulted 04/17/18 15:35 Nasal Nares MRSA Culture - Final NO METHICILLIN RESISTANT STAPH AUREUS... Complete 04/19/18 03:00 Stool Clostridium difficile Toxin Assay - Final Complete 04/17/18 22:30 Pressure Sore Wound Gram Stain - Final Complete 04/17/18 22:30 Wound Culture - Final Providencia Stuartii Esb Complete 04/17/18 15:35 Rectum VRE Culture - Final Enterococcus Faecium - Vre Complete Intake and Output 04/19/18 04/20/18 19:00 07:00 Intake Total 840.0 ml 977.500 ml Output Total 550 ml 450 ml Balance 290.0 ml 527.500 ml Intake Free Water 400 ml 230 ml IV Total 110.0 ml 387.500 ml Tube Feeding 330 ml 360 ml Output Urine Total 550 ml 450 ml # Bowel Movements 1 Objective General Appearance: cachetic, lethargic, thin EENT: normal ENT inspection Neck: non-tender, stiff neck, other - tracheostomy present Cardiovascular: normal peripheral pulses, normal rate, regular rhythm, no gallop/murmur, no JVD Respiratory/Chest: crackles/rales, rhonchi - bilaterally, expiratory wheezing Abdomen: normal bowel sounds, non tender, soft, no organomegaly, no mass Extremities: other - contracted X 4 Skin: normal pigmentation, warm/dry; stage IV sacral decubitus ulcer Assessment/Plan Problem List: (1) Pneumonia Assessment & Plan: Gram neg jose luis. Await ID and sensitivity. See pulmonary and ID note. Continue zosyn and vanco (2) Seizure disorder Assessment & Plan: Continue Keppra (3) Hypertension Assessment & Plan: Continue coreg (4) Diabetes mellitus type II, uncontrolled (5) Sacral decubitus ulcer, stage IV Assessment & Plan: Possible chronic osteomyelitis-continue antibiotic per ID. Await surgery consult (6) CHF (congestive heart failure) (7) Cardiomyopathy (8) Tracheostomy care (9) Cerebral vascular disease (10) Acute on chronic respiratory failure (11) Sepsis Assessment & Plan: await blood culture results. Continue zosyn and vanco (12) Leukocytosis (13) Anemia Assessment & Plan: S/P transfusion 2 units PRBC. (14) Atrial fibrillation Assessment & Plan: Continue amiodarone (15) Feeding by G-tube Status: not improved Aaron Solis MD 4, 2018 12:35
--- NOTE | 2018-04-20 13:39 | Infectious Diseases Prog Note ---
Assessment/Plan Assessment/Plan Abx: IV Vanco 04/17- Zosyn 04/17- Assessment: SEpsis, improving- likely 2ry to PNA- r/o ESBL -CXR: no acute disease -CT abd/p: Left posterior basal pneumonia suspected. Correlate clinically. Grade 4 sacral decubitus ulcer with exposed sacrum/coccyx. Correlate clinically. Severe hip contraction deformity and heterotopic ossification about both hips. Bilateral nonobstructive stones within the kidneys. Gastrostomy. Considerable artifact limiting evaluation of the upper abdomen. Liquefied stool in the colon. Correlate for diarrhea and enteritis. -u/a p -Bcx NTD -sp cx GNR -Cdiff neg Fever, leukocytosis, improving Multiple lower extremity decubitus (including stage IV sacral decubitus) w/ likely chronic OM- no signs of active infection -04/17 wound cx L trocnager: ESBL P. stuartti 02/2018 [facility] x: MDR Providencia (+ skin colonizer ) Bone scan limited for eval of osteomyelitis. ( due to contracted Ext. ) -s/p 2 weeks of treatment 02/2018 -L hip necrotic/unstagelable decubitus ulcer SP Debridement 11/29 ; Wnd Cx : ACB and Kleb and Strp GrG , MRSA Hx of MSSA bacteremia 11/2017 2ry to infected sacral wound ( SP 4 wks AB rx ) Hx of Pseudomonas urinary tract infection. hx of SCx: MDR-PSA ( colonizer ) Ch transaminitis /cirrhosis Hep C Ab + VDRF Status post trach and percutaneous endoscopic gastrostomy. Dementia Seizure disorder. History of pacemaker placement/AICD -hx of Vtach. Hypertension. COPD. Diabetes. Afib Cardiomyopathy Rheumatic tricuspid valve disease FTT GERD CVA/TIA [facility] resident NKDA FUll code Plan: -d/c IV Vanco and Zosyn #4 and start Meropenem pending GNR sputum as patient is colonized with ESBL and still having some intermittent low grade fevers and leukocytosis -03/04 SP Meropenem #14 -/ SP IV Vanco #7 -02/20 SP vancomycin and Zosyn d#3 -12/24 SP IV Vancomycin # -12/16 SP Meropenem #14 -// SP IV Zosyn d# 3 -f/u cx -Monitor CBC/BMP, temperatures -wound care per hospital protocol -Sx f/u -trach/peg care -aspiration precautions Thank you for this consultation. Will continue to follow along with you. Discussed with RN. Subjective Allergies: Coded Allergies: No Known Allergies (Unverified , 03/07/17) Subjective Tm 100.3; afebrile in >12hrs leukocytosis improving Bcx NTD sp cx GNR FIo2 35% Objective Vital Signs Last 24 Hour Vital Signs Date Time Temp Pulse Resp B/P (MAP) Pulse Ox O2 Delivery O2 Flow Rate FiO2 04/20/18 13:05 124 19 35 04/20/18 12:00 122 04/20/18 12:00 99.7 120 26 125/76 98 Mechanical Ventilator 35 99.7 04/20/18 12:00 35 04/20/18 10:48 121 20 35 04/20/18 08:50 125 19 35 04/20/18 08:36 120 123/81 04/20/18 08:00 116 04/20/18 08:00 35 04/20/18 08:00 99.0 120 16 123/83 100 Mechanical Ventilator 35 99.0 04/20/18 06:55 118 17 35 04/20/18 05:01 117 18 35 04/20/18 04:00 98.3 115 16 117/71 99 Mechanical Ventilator 35 98.3 04/20/18 04:00 112 04/20/18 04:00 35 04/20/18 03:10 113 18 35 04/20/18 01:13 107 16 35 04/20/18 00:00 98.3 107 17 122/88 100 Mechanical Ventilator 35 98.3 04/20/18 00:00 35 04/20/18 00:00 91 04/19/18 23:05 100 17 35 04/19/18 22:00 107 124/84 04/19/18 21:16 105 18 35 04/19/18 20:00 105 04/19/18 20:00 35 04/19/18 20:00 98.1 107 20 124/84 100 Mechanical Ventilator 35 98.1 04/19/18 19:29 107 23 35 04/19/18 16:57 104 24 35 04/19/18 16:00 103 04/19/18 16:00 35 04/19/18 16:00 100.0 105 18 138/81 100 Mechanical Ventilator 35 100.0 6/3/18 15:23 105 16 35 Height (Feet): 5 Height (Inches): 8.00 Weight (Pounds): 125 Objective GENERAL: The patient is a thin-appearing cachectic male, who is lethargic. HEENT: Pupils are equal and responsive to light and accommodation. NECK: Supple without lymphadenopathy. There is presence of tracheostomy noted. CHEST: Decreased breath sounds bilaterally with expiratory wheezes. Otherwise, clear to auscultation without wheezes or rales. CARDIOVASCULAR: Tachycardic, regular rhythm. S1 and S2 are normal without murmurs, rubs, or gallops. ABDOMEN: Soft and nondistended with positive bowel sounds. No evidence of hepatosplenomegaly. Currently, no rebound or guarding noted. EXTREMITIES: Multiple contractures noted. INTEGUMENT: Presence of a stage IV sacral decubitus. Microbiology Date/Time Source Procedure Growth Status 04/17/18 13:58 Blood Blood Culture - Preliminary NO GROWTH AFTER 48 HOURS Resulted 04/17/18 13:48 Blood Blood Culture - Preliminary NO GROWTH AFTER 48 HOURS Resulted 04/18/18 05:00 Sputum Gram Stain - Final Resulted 04/18/18 05:00 Sputum Culture - Preliminary Gram Negative Bacillus 1 Resulted 04/17/18 15:35 Nasal Nares MRSA Culture - Final NO METHICILLIN RESISTANT STAPH AUREUS... Complete 04/19/18 03:00 Stool Clostridium difficile Toxin Assay - Final Complete 04/17/18 22:30 Pressure Sore Wound Gram Stain - Final Complete 04/17/18 22:30 Wound Culture - Final Providencia Stuartii Esb Complete 04/17/18 15:35 Rectum VRE Culture - Final Enterococcus Faecium - Vre Complete Laboratory Tests Test 04/19/18 15:30 04/20/18 03:05 Random Vancomycin Level 20.1 ug/mL White Blood Count 11.8 K/UL (4.8-10.8) H Red Blood Count 3.52 M/UL (4.70-6.10) L Hemoglobin 10.0 G/DL (14.2-18.0) L Hematocrit 31.5 % (42.0-52.0) L Mean Corpuscular Volume 89 FL (80-99) Mean Corpuscular Hemoglobin 28.3 PG (27.0-31.0) Mean Corpuscular Hemoglobin Concent 31.6 G/DL (32.0-36.0) L Red Cell Distribution Width 15.3 % (11.6-14.8) H Platelet Count 504 K/UL (150-450) H Mean Platelet Volume 6.8 FL (6.5-10.1) Neutrophils (%) (Auto) 69.9 % (45.0-75.0) Lymphocytes (%) (Auto) 16.4 % (20.0-45.0) L Monocytes (%) (Auto) 6.9 % (1.0-10.0) Eosinophils (%) (Auto) 6.4 % (0.0-3.0) H Basophils (%) (Auto) 0.4 % (0.0-2.0) Sodium Level 152 MMOL/L (136-145) H Potassium Level 3.8 MMOL/L (3.5-5.1) Chloride Level 119 MMOL/L (98-107) H Carbon Dioxide Level 24 MMOL/L (21-32) Anion Gap 9 mmol/L (5-15) Blood Urea Nitrogen 15 mg/dL (7-18) Creatinine 0.9 MG/DL (0.55-1.30) Estimat Glomerular Filtration Rate > 60 mL/min (>60) Glucose Level 102 MG/DL (74-106) Calcium Level 8.6 MG/DL (8.5-10.1) Total Bilirubin 0.3 MG/DL (0.2-1.0) Aspartate Amino Transf (AST/SGOT) 21 U/L (15-37) Alanine Aminotransferase (ALT/SGPT) 25 U/L (12-78) Alkaline Phosphatase 108 U/L (46-116) Pro-B-Type Natriuretic Peptide 3116 pg/mL (0-125) H Total Protein 7.4 G/DL (6.4-8.2) Albumin 1.3 G/DL (3.4-5.0) L Globulin 6.1 g/dL Albumin/Globulin Ratio 0.2 (1.0-2.7) L Current Medications Medications (Trade) Dose Ordered Sig/Tameka Route PRN Reason Start Time Stop Time Status Last Admin Dose Admin Acetaminophen (Tylenol) 650 mg Q4H PRN ORAL FEVER 04/17/18 20:00 05/17/18 19:59 04/18/18 11:58 Albuterol/ Ipratropium (Albuterol/ Ipratropium) 3 ml EVERY 4 HOURS PRN HHN Shortness of Breath 04/17/18 20:00 04/22/18 19:59 Amiodarone HCl (Cordarone) 200 mg DAILY GT 04/18/18 09:00 05/18/18 08:59 04/20/18 08:34 Carvedilol (Coreg) 3.125 mg EVERY 12 HOURS ORAL 04/20/18 21:00 05/20/18 20:59 UNV Carvedilol (Coreg) 6.25 mg EVERY 12 HOURS ORAL 04/20/18 21:00 05/20/18 20:59 UNV Dextrose (Dextrose 50%) 25 ml STAT PRN IV BS 60-69mg/dl 04/17/18 20:15 05/17/18 20:14 Dextrose (Dextrose 50%) 50 ml STAT PRN IV BS less than 60mg/dl 04/17/18 20:00 05/17/18 19:59 Furosemide (Lasix) 20 mg ONCE IV 04/20/18 13:30 04/20/18 14:30 Heparin Sodium (Porcine) (Heparin 5000 units/ml) 5,000 units EVERY 12 HOURS SUBQ 04/17/18 21:00 05/17/18 20:59 04/20/18 08:38 Iopamidol (Isovue-300 100ml) 100 ml NOW PRN INJ Radiology Procedure 04/17/18 14:45 Levetiracetam (Keppra) 500 mg Q12HR GT 04/17/18 21:00 05/17/18 20:59 04/20/18 08:35 Lorazepam (Ativan 2mg/ml 1ml) 2 mg EVERY 2 HOURS PRN IV For Anxiety 04/17/18 20:00 04/24/18 19:59 Morphine Sulfate (Morphine Sulfate) 4 mg EVERY 4 HOURS PRN IVP Severe Pain (Pain Scale 7-10) 04/17/18 20:00 04/24/18 19:59 04/19/18 23:09 Ondansetron HCl (Zofran) 4 mg Q6H PRN IVP Nausea & Vomiting 04/17/18 20:00 05/17/18 19:59 Pantoprazole (Protonix) 40 mg DAILY IV 04/18/18 09:00 05/18/18 08:59 04/20/18 08:35 Piperacillin Sod/ Tazobactam Sod 3.375 gm/Sodium Chloride 110 ml @ 27.5 mls/hr Q8HR IVPB 04/17/18 22:00 04/24/18 23:59 04/20/18 06:04 Polyethylene Glycol (Miralax) 17 gm DAILYPRN PRN ORAL Constipation 04/17/18 20:00 05/17/18 19:59 Vancomycin HCl (Vanco rx to dose) 1 ea DAILY PRN MISC VANCO RX TO DOSE 04/17/18 20:15 05/17/18 20:14 Vancomycin/Sodium Chloride 250 ml @ 166.667 mls/hr Q24H IVPB 04/20/18 03:00 04/25/18 02:59 04/20/18 02:55 Radha Saini M.D. Apr 20, 2018 13:39
--- NOTE | 2018-04-20 13:52 | Cardiology Progress Note ---
Assessment/Plan Assessment/Plan Continue coreg for cardiomyopathy - increased dose due to tachycardia - continue to titrate as tolerated Amiodarone for hx of VT ICD in place - no recent shocks Continue antibiotics for fever and elevated WBC Follow up blood and urine cultures CXR reviewed - clear no PNA/effusions Free water for hypernatremia Subjective Cardiovascular: Reports: no symptoms Respiratory: Reports: no symptoms Gastrointestinal/Abdominal: Reports: no symptoms Genitourinary: Reports: no symptoms Subjective no acute events, vitals stable, slept well, on vent Objective Last 24 Hour Vital Signs Date Time Temp Pulse Resp B/P (MAP) Pulse Ox O2 Delivery O2 Flow Rate FiO2 04/20/18 13:05 124 19 35 04/20/18 12:00 122 04/20/18 12:00 99.7 120 26 125/76 98 Mechanical Ventilator 35 99.7 04/20/18 12:00 35 04/20/18 10:48 121 20 35 04/20/18 08:50 125 19 35 04/20/18 08:36 120 123/81 04/20/18 08:00 116 04/20/18 08:00 35 04/20/18 08:00 99.0 120 16 123/83 100 Mechanical Ventilator 35 99.0 04/20/18 06:55 118 17 35 04/20/18 05:01 117 18 35 04/20/18 04:00 98.3 115 16 117/71 99 Mechanical Ventilator 35 98.3 04/20/18 04:00 112 04/20/18 04:00 35 04/20/18 03:10 113 18 35 04/20/18 01:13 107 16 35 04/20/18 00:00 98.3 107 17 122/88 100 Mechanical Ventilator 35 98.3 04/20/18 00:00 35 04/20/18 00:00 91 04/19/18 23:05 100 17 35 04/19/18 22:00 107 124/84 04/19/18 21:16 105 18 35 04/19/18 20:00 105 04/19/18 20:00 35 04/19/18 20:00 98.1 107 20 124/84 100 Mechanical Ventilator 35 98.1 04/19/18 19:29 107 23 35 04/19/18 16:57 104 24 35 04/19/18 16:00 103 04/19/18 16:00 35 04/19/18 16:00 100.0 105 18 138/81 100 Mechanical Ventilator 35 100.0 04/19/18 15:23 105 16 35 General Appearance: no apparent distress EENT: PERRL/EOMI Neck: non-tender Rhythm: NSR Cardiovascular: normal peripheral pulses Respiratory/Chest: lungs clear Abdomen: normal bowel sounds Extremities: normal range of motion Neurologic: [employer] 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 normal Intake and Output 04/19/18 04/20/18 19:00 07:00 Intake Total 840.0 ml 977.500 ml Output Total 550 ml 450 ml Balance 290.0 ml 527.500 ml Intake Free Water 400 ml 230 ml IV Total 110.0 ml 387.500 ml Tube Feeding 330 ml 360 ml Output Urine Total 550 ml 450 ml # Bowel Movements 1 Laboratory Tests Test 04/19/18 15:30 04/20/18 03:05 Random Vancomycin Level 20.1 ug/mL White Blood Count 11.8 K/UL (4.8-10.8) H Red Blood Count 3.52 M/UL (4.70-6.10) L Hemoglobin 10.0 G/DL (14.2-18.0) L Hematocrit 31.5 % (42.0-52.0) L Mean Corpuscular Volume 89 FL (80-99) Mean Corpuscular Hemoglobin 28.3 PG (27.0-31.0) Mean Corpuscular Hemoglobin Concent 31.6 G/DL (32.0-36.0) L Red Cell Distribution Width 15.3 % (11.6-14.8) H Platelet Count 504 K/UL (150-450) H Mean Platelet Volume 6.8 FL (6.5-10.1) Neutrophils (%) (Auto) 69.9 % (45.0-75.0) Lymphocytes (%) (Auto) 16.4 % (20.0-45.0) L Monocytes (%) (Auto) 6.9 % (1.0-10.0) Eosinophils (%) (Auto) 6.4 % (0.0-3.0) H Basophils (%) (Auto) 0.4 % (0.0-2.0) Sodium Level 152 MMOL/L (136-145) H Potassium Level 3.8 MMOL/L (3.5-5.1) Chloride Level 119 MMOL/L (98-107) H Carbon Dioxide Level 24 MMOL/L (21-32) Anion Gap 9 mmol/L (5-15) Blood Urea Nitrogen 15 mg/dL (7-18) Creatinine 0.9 MG/DL (0.55-1.30) Estimat Glomerular Filtration Rate > 60 mL/min (>60) Glucose Level 102 MG/DL (74-106) Calcium Level 8.6 MG/DL (8.5-10.1) Total Bilirubin 0.3 MG/DL (0.2-1.0) Aspartate Amino Transf (AST/SGOT) 21 U/L (15-37) Alanine Aminotransferase (ALT/SGPT) 25 U/L (12-78) Alkaline Phosphatase 108 U/L (46-116) Pro-B-Type Natriuretic Peptide 3116 pg/mL (0-125) H Total Protein 7.4 G/DL (6.4-8.2) Albumin 1.3 G/DL (3.4-5.0) L Globulin 6.1 g/dL Albumin/Globulin Ratio 0.2 (1.0-2.7) L Microbiology Date/Time Source Procedure Growth Status 04/17/18 13:58 Blood Blood Culture - Preliminary NO GROWTH AFTER 48 HOURS Resulted 04/18/18 05:00 Sputum Gram Stain - Final Resulted 04/18/18 05:00 Sputum Culture - Preliminary Gram Negative Bacillus 1 Resulted 04/17/18 15:35 Nasal Nares MRSA Culture - Final NO METHICILLIN RESISTANT STAPH AUREUS... Complete 04/19/18 03:00 Stool Clostridium difficile Toxin Assay - Final Complete 04/17/18 22:30 Pressure Sore Wound Gram Stain - Final Complete 04/17/18 22:30 Wound Culture - Final Providencia Stuartii Esb Complete 04/17/18 15:35 Rectum VRE Culture - Final Enterococcus Faecium - Vre Complete Fausto Berg M.D. Apr 20, 2018 13:52
--- NOTE | 2018-04-20 13:59 | Diagnostic Imaging Report ---
Indication: Dyspnea Technique: One view of the chest Comparison: 04/17/2018 Findings: Tracheostomy is again demonstrated. There is questionably increased parenchymal disease in the left infrahilar region and right suprahilar region. The heart size is normal. Left chest AICD is again demonstrated Impression: Questionable increased parenchymal infiltrates in the right suprahilar region and left infrahilar region, over 3 days.
[2018-04-20] MEDS: Meropenem 1 GM in NS 55 ML IVPB SCH ×2 (14:56→21:28)
--- NOTE | 2018-04-20 15:21 | General Surgery Progress Note ---
General Surgery-Progress Note Subjective Additional Comments no acute events. Objective Last 24 Hour Vital Signs Date Time Temp Pulse Resp B/P (MAP) Pulse Ox O2 Delivery O2 Flow Rate FiO2 04/20/18 15:06 129 25 35 04/20/18 13:05 124 19 35 04/20/18 12:00 122 04/20/18 12:00 99.7 120 26 125/76 98 Mechanical Ventilator 35 99.7 04/20/18 12:00 35 04/20/18 10:48 121 20 35 04/20/18 08:50 125 19 35 04/20/18 08:36 120 123/81 04/20/18 08:00 116 04/20/18 08:00 35 04/20/18 08:00 99.0 120 16 123/83 100 Mechanical Ventilator 35 99.0 04/20/18 06:55 118 17 35 04/20/18 05:01 117 18 35 04/20/18 04:00 98.3 115 16 117/71 99 Mechanical Ventilator 35 98.3 04/20/18 04:00 112 04/20/18 04:00 35 04/20/18 03:10 113 18 35 04/20/18 01:13 107 16 35 04/20/18 00:00 98.3 107 17 122/88 100 Mechanical Ventilator 35 98.3 04/20/18 00:00 35 04/20/18 00:00 91 04/19/18 23:05 100 17 35 04/19/18 22:00 107 124/84 04/19/18 21:16 105 18 35 04/19/18 20:00 105 04/19/18 20:00 35 04/19/18 20:00 98.1 107 20 124/84 100 Mechanical Ventilator 35 98.1 04/19/18 19:29 107 23 35 04/19/18 16:57 104 24 35 04/19/18 16:00 103 04/19/18 16:00 35 04/19/18 16:00 100.0 105 18 138/81 100 Mechanical Ventilator 35 100.0 04/19/18 15:23 105 16 35 I&O Intake and Output 04/19/18 04/20/18 19:00 07:00 Intake Total 840.0 ml 977.500 ml Output Total 550 ml 450 ml Balance 290.0 ml 527.500 ml Intake Free Water 400 ml 230 ml IV Total 110.0 ml 387.500 ml Tube Feeding 330 ml 360 ml Output Urine Total 550 ml 450 ml # Bowel Movements 1 Extremities: edema, tenderness, other - see wound care photos Laboratory Tests Test 04/19/18 15:30 04/20/18 03:05 Random Vancomycin Level 20.1 ug/mL White Blood Count 11.8 K/UL (4.8-10.8) H Red Blood Count 3.52 M/UL (4.70-6.10) L Hemoglobin 10.0 G/DL (14.2-18.0) L Hematocrit 31.5 % (42.0-52.0) L Mean Corpuscular Volume 89 FL (80-99) Mean Corpuscular Hemoglobin 28.3 PG (27.0-31.0) Mean Corpuscular Hemoglobin Concent 31.6 G/DL (32.0-36.0) L Red Cell Distribution Width 15.3 % (11.6-14.8) H Platelet Count 504 K/UL (150-450) H Mean Platelet Volume 6.8 FL (6.5-10.1) Neutrophils (%) (Auto) 69.9 % (45.0-75.0) Lymphocytes (%) (Auto) 16.4 % (20.0-45.0) L Monocytes (%) (Auto) 6.9 % (1.0-10.0) Eosinophils (%) (Auto) 6.4 % (0.0-3.0) H Basophils (%) (Auto) 0.4 % (0.0-2.0) Sodium Level 152 MMOL/L (136-145) H Potassium Level 3.8 MMOL/L (3.5-5.1) Chloride Level 119 MMOL/L (98-107) H Carbon Dioxide Level 24 MMOL/L (21-32) Anion Gap 9 mmol/L (5-15) Blood Urea Nitrogen 15 mg/dL (7-18) Creatinine 0.9 MG/DL (0.55-1.30) Estimat Glomerular Filtration Rate > 60 mL/min (>60) Glucose Level 102 MG/DL (74-106) Calcium Level 8.6 MG/DL (8.5-10.1) Total Bilirubin 0.3 MG/DL (0.2-1.0) Aspartate Amino Transf (AST/SGOT) 21 U/L (15-37) Alanine Aminotransferase (ALT/SGPT) 25 U/L (12-78) Alkaline Phosphatase 108 U/L (46-116) Pro-B-Type Natriuretic Peptide 3116 pg/mL (0-125) H Total Protein 7.4 G/DL (6.4-8.2) Albumin 1.3 G/DL (3.4-5.0) L Globulin 6.1 g/dL Albumin/Globulin Ratio 0.2 (1.0-2.7) L Plan Problems: (1) Sacral decubitus ulcer, stage IV Assessment & Plan: stage IV sacral decubitus ulcer - clean, no signs of active infection, no tracking, down to coccyx, some granulation tissue, no significant fibrinous tissue stage IV left hip decubitus ulcer - clean, no signs of active infection, mild 3 o'clock tracking, some granulation tissue, mild fibrinous tissue stage IV left buttock decubitus ulcer - clean, no signs of active infection, no tracking, some granulation tissue, mild fibrinous tissue stage IV right hip decubitus ulcer - clean, no signs of active infection, no tracking, some granulation tissue, moderate fibrinous tissue stage IV right buttock decubitus ulcer - clean, no signs of active infection, no tracking, some granulation tissue, moderate fibrinous tissue bilateral heel/foot wounds - no signs of active infection. All wounds present upon admission. As for care, for now please was wounds, place dry guaze to wound bed, then cover with foam dressing or ABD 2-3 times per day. may need debridement of right hip and buttock wounds to help with healing but for now will monitor. thank you for this consultation. will follow with recs. Derek Dong Apr 20, 2018 15:21
[2018-04-20 16:00] VITALS: BP 120/83
[2018-04-20] MEDS: Morphine Sulfate 4mg/ml Inj IVP PRN (16:39)
[2018-04-20 20:00] VITALS: BP 135/86
[2018-04-20] MEDS: Carvedilol 6.25mg Tab ORAL SCH (21:28)
[2018-04-21] VITALS: BP 154/76
[2018-04-21 04:00] VITALS: BP 129/64
[2018-04-21 05:00] LABS: BASOPHILS % (AUTO) 0.4 % (0.0-2.0); EOSINOPHILS % (AUTO) 6.1 % (0.0-3.0); HEMATOCRIT 30.8 % (42.0-52.0); HEMOGLOBIN 9.5 G/DL (14.2-18.0); LYMPHOCYTES % (AUTO) 14.1 % (20.0-45.0); MEAN CORPUSCULAR VOLUME 90 FL (80-99); MONOCYTES % (AUTO) 6.1 % (1.0-10.0); NEUTROPHILS % (AUTO) 73.4 % (45.0-75.0); PLATELET COUNT 476 K/UL (150-450); RED BLOOD COUNT 3.43 M/UL (4.70-6.10); WHITE BLOOD COUNT 11.5 K/UL (4.8-10.8)
[2018-04-21] MEDS: Meropenem 1 GM in NS 55 ML IVPB SCH ×3 (05:25→22:33)
[2018-04-21 05:29] LABS: ALANINE AMINOTRANSFERASE 22 U/L (12-78); ALBUMIN 1.3 G/DL (3.4-5.0); ALBUMIN/GLOBULIN RATIO 0.2 (1.0-2.7); ALKALINE PHOSPHATASE 107 U/L (46-116); ANION GAP 11 mmol/L (5-15); ASPARTATE AMINO TRANSFERASE 25 U/L (15-37); BILIRUBIN,TOTAL 0.2 MG/DL (0.2-1.0); BLOOD UREA NITROGEN 15 mg/dL (7-18); CALCIUM 8.4 MG/DL (8.5-10.1); CARBON DIOXIDE 22 MMOL/L (21-32); CHLORIDE 117 MMOL/L (98-107); CREATININE 0.9 MG/DL (0.55-1.30); POTASSIUM 3.9 MMOL/L (3.5-5.1); SODIUM 150 MMOL/L (136-145)
[2018-04-21 06:29] LABS: APPEARANCE,URINE CLOUDY; BILIRUBIN, URINE NEGATIVE (NEGATIVE); COLOR,URINE YELLOW; GLUCOSE, URINE (UA) NEGATIVE (NEGATIVE); KETONES,URINE NEGATIVE (NEGATIVE); LEUKOCYTE ESTERASE ,URINE 1+ (NEGATIVE); NITRITE,URINE NEGATIVE (NEGATIVE); PH,URINE 6.5 (4.5-8.0); PROTEIN,URINE 2+ (NEGATIVE); UROBILINOGEN,URINE NORMAL MG/DL (0.0-1.0)
[2018-04-21 08:00] VITALS: BP 125/81
--- NOTE | 2018-04-21 08:37 | Nephrology Progress Note ---
Assessment/Plan Assessment/Plan 1. Hypernatremia- Free water thru peg. Na down to 150 2. Nosocomial PNA- on Abx, defer to ID and Pulm. 3. Hypokalemia - Corrected 4. Dehydration- improved Subjective Date patient seen: Apr 21, 2018 Time patient seen: 08:36 ROS Limited/Unobtainable: Yes Allergies: Coded Allergies: No Known Allergies (Unverified , 03/07/17) Subjective Patient trached on the vent. Objective Last 24 Hour Vital Signs Date Time Temp Pulse Resp B/P (MAP) Pulse Ox O2 Delivery O2 Flow Rate FiO2 04/21/18 08:00 35 04/21/18 07:13 99 17 35 04/21/18 06:47 100.1 04/21/18 05:48 100.6 04/21/18 04:45 109 16 35 04/21/18 04:00 100.6 108 18 129/64 100 Mechanical Ventilator 35 100.6 04/21/18 04:00 108 04/21/18 04:00 35 04/21/18 02:31 113 16 35 04/21/18 00:56 116 16 35 04/21/18 00:00 35 04/21/18 00:00 98.8 101 17 154/76 100 Mechanical Ventilator 35 98.8 04/20/18 23:34 102 04/20/18 23:07 111 16 35 04/20/18 21:28 114 135/86 04/20/18 20:59 114 16 35 04/20/18 20:00 35 04/20/18 20:00 99.2 112 16 135/86 100 Mechanical Ventilator 35 99.2 04/20/18 20:00 119 04/20/18 19:19 112 16 35 04/20/18 17:19 101.2 04/20/18 17:13 132 21 35 04/20/18 16:22 35 04/20/18 16:00 101.2 136 21 120/83 100 Mechanical Ventilator 35 101.2 04/20/18 16:00 123 04/20/18 15:06 129 25 35 04/20/18 13:05 124 19 35 04/20/18 12:00 122 04/20/18 12:00 99.7 120 26 125/76 98 Mechanical Ventilator 35 99.7 04/20/18 12:00 35 04/20/18 10:48 121 20 35 04/20/18 08:50 125 19 35 Intake and Output 04/20/18 04/21/18 19:00 07:00 Intake Total 1097.5 ml 970 ml Output Total 500 ml 200 ml Balance 597.5 ml 770 ml Intake Free Water 600 ml 400 ml IV Total 137.5 ml 110 ml Tube Feeding 360 ml 360 ml Other 100 ml Output Urine Total 500 ml 200 ml Laboratory Tests 04/21/18 01:00: Urine Color Yellow, Urine Appearance Cloudy, Urine pH 6.5, Urine Specific [place] 1.015, Urine Protein 2+H, Urine Glucose (UA) Negative, Urine Ketones Negative, Urine Occult Blood 1+H, Urine Nitrite Negative, Urine Bilirubin Negative, Urine Urobilinogen Normal, Urine Leukocyte Esterase 1+H, Urine RBC 2- 4H, Urine WBC 2-4, Urine Squamous Epithelial Cells Few, Urine Calcium Oxalate Crystals Few, Urine Bacteria Few, Urine Yeast ManyH 04/21/18 03:45: White Blood Count 11.5H, Red Blood Count 3.43L, Hemoglobin 9.5L, Hematocrit 30.8L, Mean Corpuscular Volume 90, Mean Corpuscular Hemoglobin 27.8, Mean Corpuscular Hemoglobin Concent 31.0L, Red Cell Distribution Width 15.0H, Platelet Count 476H, Mean Platelet Volume 6.8, Neutrophils (%) (Auto) 73.4, Lymphocytes (%) (Auto) 14.1L, Monocytes (%) (Auto) 6.1, Eosinophils (%) (Auto) 6.1H, Basophils (%) (Auto) 0.4, Sodium Level 150H, Potassium Level 3.9, Chloride Level 117H, Carbon Dioxide Level 22, Anion Gap 11, Blood Urea Nitrogen 15, Creatinine 0.9, Estimat Glomerular Filtration Rate > 60, Glucose Level 106, Calcium Level 8.4L, Phosphorus Level 3.0, Magnesium Level 2.0, Total Bilirubin 0.2, Aspartate Amino Transf (AST/SGOT) 25, Alanine Aminotransferase (ALT/SGPT) 22, Alkaline Phosphatase 107, Total Protein 7.3, Albumin 1.3L, Globulin 6.0, Albumin/Globulin Ratio 0.2L Height (Feet): 5 Height (Inches): 8.00 Weight (Pounds): 130 General Appearance: no apparent distress EENT: normal ENT inspection Neck: normal alignment, supple Cardiovascular: normal rate, regular rhythm Respiratory/Chest: lungs clear, normal breath sounds Abdomen: non tender, soft Edema: no edema noted Arm (L), no edema noted Arm (R), no edema noted Leg (L), no edema noted Leg (R), no edema noted Pedal (L), no edema noted Pedal (R), no edema noted Generalized Alexandro High M.D. Apr 21, 2018 08:37
[2018-04-21] MEDS: Pantoprazole Inj IV SCH (08:55)
[2018-04-21] MEDS: Amiodarone 200mg tab GT SCH (08:55)
[2018-04-21] MEDS: levETIRAcetam 500mg/5ml Liquid GT SCH ×2 (08:55→21:20)
[2018-04-21] MEDS: Carvedilol 6.25mg Tab ORAL SCH ×2 (08:55→21:20)
[2018-04-21] MEDS: Heparin 5000 units/ml inj SUBQ SCH ×2 (08:56→21:22)
--- NOTE | 2018-04-21 11:35 | Infectious Diseases Prog Note ---
Assessment/Plan Assessment/Plan Assessment: SEpsis, ongoing- 2ry to PNA- r/o ESBL, r/o bacteremia -CXR 04/20: Questionable increased parenchymal infiltrates in the right suprahilar region and left infrahilar region, over 3 days. -CXR: no acute disease -CT abd/p: Left posterior basal pneumonia suspected. Correlate clinically. Grade 4 sacral decubitus ulcer with exposed sacrum/coccyx. Correlate clinically. Severe hip contraction deformity and heterotopic ossification about both hips. Bilateral nonobstructive stones within the kidneys. Gastrostomy. Considerable artifact limiting evaluation of the upper abdomen. Liquefied stool in the colon. Correlate for diarrhea and enteritis. -u/a no pyuria -Bcx NTD -sp cx S. maltophilia (S bactrim, levaquin), GNR #2 -Cdiff neg Fever, leukocytosis, ongoing; leukocytosis improving Multiple lower extremity decubitus (including stage IV sacral decubitus) w/ likely chronic OM- no signs of active infection -04/17 wound cx L trochanter: ESBL P. stuartti (colonizer) 02/2018 Wnd[facility] x: MDR Providencia (+ skin colonizer ) Bone scan limited for eval of osteomyelitis. ( due to contracted Ext. ) -s/p 2 weeks of treatment 02/2018 -L hip necrotic/unstagelable decubitus ulcer SP Debridement 11/29 ; Wnd Cx : ACB and Kleb and Strp GrG , MRSA Hx of MSSA bacteremia 11/2017 2ry to infected sacral wound ( SP 4 wks AB rx ) Hx of Pseudomonas urinary tract infection. hx of SCx: MDR-PSA ( colonizer ) Ch transaminitis /cirrhosis Hep C Ab + VDRF Status post trach and percutaneous endoscopic gastrostomy. Dementia Seizure disorder. History of pacemaker placement/AICD -hx of Vtach. Hypertension. COPD. Diabetes. Afib Cardiomyopathy Rheumatic tricuspid valve disease FTT GERD CVA/TIA [facility] resident NKDA FUll code Plan: -Continue Meropenem #2 pending GNR #2 sputum as patient is colonized with ESBL and still having some intermittent low grade fevers and leukocytosis -Add IV Bactrim 5mg/kg q8hr for S.maltophilia PNA -upon discharge can be transitioned to PO Levaquin -6/ SP IV Vanco and Zosyn #4 -03/04 SP Meropenem #14 -03/01 SP IV Vanco #7 -6 SP vancomycin and Zosyn d#3 -/7 SP IV Vancomycin #28 -12/16 SP Meropenem #14 -11/22/17 SP IV Zosyn d# 3 -f/u cx -Monitor CBC/BMP, temperatures -wound care per hospital protocol -Sx f/u -trach/peg care -aspiration precautions -Bcx x2, lipase am Thank you for this consultation. Will continue to follow along with you. Discussed with RN. Subjective Allergies: Coded Allergies: No Known Allergies (Unverified , 03/07/17) Subjective Tm 101.2 WBC stable on 11s Bcx NTD sp cx S.maltophilia, 2nd GNR Fio2 35% Cdiff neg Objective Vital Signs Last 24 Hour Vital Signs Date Time Temp Pulse Resp B/P (MAP) Pulse Ox O2 Delivery O2 Flow Rate FiO2 04/21/18 10:54 95 17 35 04/21/18 09:06 96 17 35 04/21/18 08:55 100 125/81 04/21/18 08:00 97 04/21/18 08:00 35 04/21/18 08:00 99.5 100 17 125/81 100 Mechanical Ventilator 35 99.5 04/21/18 07:13 99 17 35 04/21/18 06:47 100.1 04/21/18 05:48 100.6 04/21/18 04:45 109 16 35 04/21/18 04:00 100.6 108 18 129/64 100 Mechanical Ventilator 35 100.6 04/21/18 04:00 108 04/21/18 04:00 35 04/21/18 02:31 113 16 35 04/21/18 00:56 116 16 35 04/21/18 00:00 35 04/21/18 00:00 98.8 101 17 154/76 100 Mechanical Ventilator 35 98.8 04/20/18 23:34 102 04/20/18 23:07 111 16 35 04/20/18 21:28 114 135/86 04/20/18 20:59 114 16 35 04/20/18 20:00 35 04/20/18 20:00 99.2 112 16 135/86 100 Mechanical Ventilator 35 99.2 04/20/18 20:00 119 04/20/18 19:19 112 16 35 04/20/18 17:19 101.2 04/20/18 17:13 132 21 35 04/20/18 16:22 35 04/20/18 16:00 101.2 136 21 120/83 100 Mechanical Ventilator 35 101.2 04/20/18 16:00 123 04/20/18 15:06 129 25 35 04/20/18 13:05 124 19 35 04/20/18 12:00 122 04/20/18 12:00 99.7 120 26 125/76 98 Mechanical Ventilator 35 99.7 04/20/18 12:00 35 Height (Feet): 5 Height (Inches): 8.00 Weight (Pounds): 130 Objective GENERAL: The patient is a thin-appearing cachectic male, who is lethargic. HEENT: Pupils are equal and responsive to light and accommodation. NECK: Supple without lymphadenopathy. There is presence of tracheostomy noted. CHEST: Decreased breath sounds bilaterally with expiratory wheezes. Otherwise, clear to auscultation without wheezes or rales. CARDIOVASCULAR: Tachycardic, regular rhythm. S1 and S2 are normal without murmurs, rubs, or gallops. ABDOMEN: Soft and nondistended with positive bowel sounds. No evidence of hepatosplenomegaly. Currently, no rebound or guarding noted. EXTREMITIES: Multiple contractures noted. INTEGUMENT: Presence of a stage IV sacral decubitus. Microbiology Date/Time Source Procedure Growth Status 04/19/18 03:00 Stool Clostridium difficile Toxin Assay - Final Complete Laboratory Tests Test 04/21/18 01:00 04/21/18 03:45 Urine Color Yellow Urine Appearance Cloudy Urine pH 6.5 (4.5-8.0) Urine Specific [place] 1.015 (1.005-1.035) Urine Protein 2+ (NEGATIVE) H Urine Glucose (UA) Negative (NEGATIVE) Urine Ketones Negative (NEGATIVE) Urine Occult Blood 1+ (NEGATIVE) H Urine Nitrite Negative (NEGATIVE) Urine Bilirubin Negative (NEGATIVE) Urine Urobilinogen Normal MG/DL (0.0-1.0) Urine Leukocyte Esterase 1+ (NEGATIVE) H Urine RBC 2-4 /HPF (0 - 0) H Urine WBC 2-4 /HPF (0 - 0) Urine Squamous Epithelial Cells Few /LPF (NONE/OCC) Urine Calcium Oxalate Crystals Few /LPF (NONE) Urine Bacteria Few /HPF (NONE) Urine Yeast Many /HPF (NONE) H White Blood Count 11.5 K/UL (4.8-10.8) H Red Blood Count 3.43 M/UL (4.70-6.10) L Hemoglobin 9.5 G/DL (14.2-18.0) L Hematocrit 30.8 % (42.0-52.0) L Mean Corpuscular Volume 90 FL (80-99) Mean Corpuscular Hemoglobin 27.8 PG (27.0-31.0) Mean Corpuscular Hemoglobin Concent 31.0 G/DL (32.0-36.0) L Red Cell Distribution Width 15.0 % (11.6-14.8) H Platelet Count 476 K/UL (150-450) H Mean Platelet Volume 6.8 FL (6.5-10.1) Neutrophils (%) (Auto) 73.4 % (45.0-75.0) Lymphocytes (%) (Auto) 14.1 % (20.0-45.0) L Monocytes (%) (Auto) 6.1 % (1.0-10.0) Eosinophils (%) (Auto) 6.1 % (0.0-3.0) H Basophils (%) (Auto) 0.4 % (0.0-2.0) Sodium Level 150 MMOL/L (136-145) H Potassium Level 3.9 MMOL/L (3.5-5.1) Chloride Level 117 MMOL/L (98-107) H Carbon Dioxide Level 22 MMOL/L (21-32) Anion Gap 11 mmol/L (5-15) Blood Urea Nitrogen 15 mg/dL (7-18) Creatinine 0.9 MG/DL (0.55-1.30) Estimat Glomerular Filtration Rate > 60 mL/min (>60) Glucose Level 106 MG/DL (74-106) Calcium Level 8.4 MG/DL (8.5-10.1) L Phosphorus Level 3.0 MG/DL (2.5-4.9) Magnesium Level 2.0 MG/DL (1.8-2.4) Total Bilirubin 0.2 MG/DL (0.2-1.0) Aspartate Amino Transf (AST/SGOT) 25 U/L (15-37) Alanine Aminotransferase (ALT/SGPT) 22 U/L (12-78) Alkaline Phosphatase 107 U/L (46-116) Total Protein 7.3 G/DL (6.4-8.2) Albumin 1.3 G/DL (3.4-5.0) L Globulin 6.0 g/dL Albumin/Globulin Ratio 0.2 (1.0-2.7) L Current Medications Medications (Trade) Dose Ordered Sig/Tameka Route PRN Reason Start Time Stop Time Status Last Admin Dose Admin Acetaminophen (Tylenol) 650 mg Q4H PRN ORAL FEVER 04/17/18 20:00 05/17/18 19:59 04/21/18 05:48 Albuterol/ Ipratropium (Albuterol/ Ipratropium) 3 ml EVERY 4 HOURS PRN HHN Shortness of Breath 04/17/18 20:00 04/22/18 19:59 Amiodarone HCl (Cordarone) 200 mg DAILY GT 04/18/18 09:00 05/18/18 08:59 04/21/18 08:55 Carvedilol (Coreg) 6.25 mg EVERY 12 HOURS ORAL 04/20/18 21:00 05/20/18 20:59 04/21/18 08:55 Dextrose (Dextrose 50%) 25 ml STAT PRN IV BS 60-69mg/dl 04/17/18 20:15 05/17/18 20:14 Dextrose (Dextrose 50%) 50 ml STAT PRN IV BS less than 60mg/dl 04/17/18 20:00 05/17/18 19:59 Heparin Sodium (Porcine) (Heparin 5000 units/ml) 5,000 units EVERY 12 HOURS SUBQ 04/17/18 21:00 05/17/18 20:59 04/21/18 08:56 Iopamidol (Isovue-300 100ml) 100 ml NOW PRN INJ Radiology Procedure 04/17/18 14:45 Levetiracetam (Keppra) 500 mg Q12HR GT 04/17/18 21:00 05/17/18 20:59 04/21/18 08:55 Lorazepam (Ativan 2mg/ml 1ml) 2 mg EVERY 2 HOURS PRN IV For Anxiety 04/17/18 20:00 04/24/18 19:59 Meropenem 1 gm/ Sodium Chloride 55 ml @ 110 mls/hr Q8HR IVPB 04/20/18 14:00 04/25/18 13:59 04/21/18 05:25 Morphine Sulfate (Morphine Sulfate) 4 mg EVERY 4 HOURS PRN IVP Severe Pain (Pain Scale 7-10) 04/17/18 20:00 04/24/18 19:59 04/20/18 16:39 Ondansetron HCl (Zofran) 4 mg Q6H PRN IVP Nausea & Vomiting 04/17/18 20:00 05/17/18 19:59 Pantoprazole (Protonix) 40 mg DAILY IV 04/18/18 09:00 05/18/18 08:59 04/21/18 08:55 Polyethylene Glycol (Miralax) 17 gm DAILYPRN PRN ORAL Constipation 04/17/18 20:00 05/17/18 19:59 Radha Saini M.D. Apr 21, 2018 11:35
--- NOTE | 2018-04-21 11:46 | Pulmonolgy Critical Care Note ---
Critical Care - Asmt/Plan Problems: (1) Acute on chronic respiratory failure (2) Sepsis (3) Leukocytosis (4) Feeding by G-tube (5) EF of 30 (6) AICD (automatic cardioverter/defibrillator) present Respiratory: monitor respiratory rate, adjust FIO2, CXR Cardiac: continue to monitor HR/BP Renal: F/U I&O, keep IV fluid Infectious Disease: check cultures Gastrointestinal: continue feedings/current rate Endocrine: monitor blood sugar, continue sliding scale insulin Hematologic: monitor H/H, transfuse if hgb<8.5 Neurologic: PRN Morphine Prophylaxis: Protonix, Heparin Notes Reviewed: director of recreation therapy, renal Discussed with: nurses, consultants, case fitterassistant store manager operations - Objective Last 24 Hour Vital Signs Date Time Temp Pulse Resp B/P (MAP) Pulse Ox O2 Delivery O2 Flow Rate FiO2 04/21/18 10:54 95 17 35 04/21/18 09:06 96 17 35 04/21/18 08:55 100 125/81 04/21/18 08:00 97 04/21/18 08:00 35 04/21/18 08:00 99.5 100 17 125/81 100 Mechanical Ventilator 35 99.5 04/21/18 07:13 99 17 35 04/21/18 06:47 100.1 04/21/18 05:48 100.6 04/21/18 04:45 109 16 35 04/21/18 04:00 100.6 108 18 129/64 100 Mechanical Ventilator 35 100.6 04/21/18 04:00 108 04/21/18 04:00 35 04/21/18 02:31 113 16 35 04/21/18 00:56 116 16 35 04/21/18 00:00 35 04/21/18 00:00 98.8 101 17 154/76 100 Mechanical Ventilator 35 98.8 04/20/18 23:34 102 04/20/18 23:07 111 16 35 04/20/18 21:28 114 135/86 04/20/18 20:59 114 16 35 04/20/18 20:00 35 04/20/18 20:00 99.2 112 16 135/86 100 Mechanical Ventilator 35 99.2 04/20/18 20:00 119 04/20/18 19:19 112 16 35 04/20/18 17:19 101.2 04/20/18 17:13 132 21 35 04/20/18 16:22 35 04/20/18 16:00 101.2 136 21 120/83 100 Mechanical Ventilator 35 101.2 04/20/18 16:00 123 04/20/18 15:06 129 25 35 04/20/18 13:05 124 19 35 04/20/18 12:00 122 04/20/18 12:00 99.7 120 26 125/76 98 Mechanical Ventilator 35 99.7 04/20/18 12:00 35 Status: awake Condition: critical Neck: full ROM Lungs: clear Heart: HR/BP stable, regular Abdomen: non-tender, active bowel sounds Extremities: no C/C/E, edema Decubiti: location Micro: Microbiology Date/Time Source Procedure Growth Status 04/19/18 03:00 Stool Clostridium difficile Toxin Assay - Final Complete Critical Care - Subjective ROS Limited/Unobtainable: Yes Condition: critical FI02: 35 Vent Support Breath Rate: 16 Vent Support Mode: AC Vent Tidal Volume: 600 Sputum Amount: Scant PEEP: 5.0 PIP: 21 Tube Feeding Amount: 30 I&O: Intake and Output 04/20/18 04/21/18 19:00 07:00 Intake Total 1097.5 ml 970 ml Output Total 500 ml 200 ml Balance 597.5 ml 770 ml Intake Free Water 600 ml 400 ml IV Total 137.5 ml 110 ml Tube Feeding 360 ml 360 ml Other 100 ml Output Urine Total 500 ml 200 ml CXR: no change Labs: Laboratory Tests Test 04/21/18 01:00 04/21/18 03:45 Urine Color Yellow Urine Appearance Cloudy Urine pH 6.5 (4.5-8.0) Urine Specific [place] 1.015 (1.005-1.035) Urine Protein 2+ (NEGATIVE) H Urine Glucose (UA) Negative (NEGATIVE) Urine Ketones Negative (NEGATIVE) Urine Occult Blood 1+ (NEGATIVE) H Urine Nitrite Negative (NEGATIVE) Urine Bilirubin Negative (NEGATIVE) Urine Urobilinogen Normal MG/DL (0.0-1.0) Urine Leukocyte Esterase 1+ (NEGATIVE) H Urine RBC 2-4 /HPF (0 - 0) H Urine WBC 2-4 /HPF (0 - 0) Urine Squamous Epithelial Cells Few /LPF (NONE/OCC) Urine Calcium Oxalate Crystals Few /LPF (NONE) Urine Bacteria Few /HPF (NONE) Urine Yeast Many /HPF (NONE) H White Blood Count 11.5 K/UL (4.8-10.8) H Red Blood Count 3.43 M/UL (4.70-6.10) L Hemoglobin 9.5 G/DL (14.2-18.0) L Hematocrit 30.8 % (42.0-52.0) L Mean Corpuscular Volume 90 FL (80-99) Mean Corpuscular Hemoglobin 27.8 PG (27.0-31.0) Mean Corpuscular Hemoglobin Concent 31.0 G/DL (32.0-36.0) L Red Cell Distribution Width 15.0 % (11.6-14.8) H Platelet Count 476 K/UL (150-450) H Mean Platelet Volume 6.8 FL (6.5-10.1) Neutrophils (%) (Auto) 73.4 % (45.0-75.0) Lymphocytes (%) (Auto) 14.1 % (20.0-45.0) L Monocytes (%) (Auto) 6.1 % (1.0-10.0) Eosinophils (%) (Auto) 6.1 % (0.0-3.0) H Basophils (%) (Auto) 0.4 % (0.0-2.0) Sodium Level 150 MMOL/L (136-145) H Potassium Level 3.9 MMOL/L (3.5-5.1) Chloride Level 117 MMOL/L (98-107) H Carbon Dioxide Level 22 MMOL/L (21-32) Anion Gap 11 mmol/L (5-15) Blood Urea Nitrogen 15 mg/dL (7-18) Creatinine 0.9 MG/DL (0.55-1.30) Estimat Glomerular Filtration Rate > 60 mL/min (>60) Glucose Level 106 MG/DL (74-106) Calcium Level 8.4 MG/DL (8.5-10.1) L Phosphorus Level 3.0 MG/DL (2.5-4.9) Magnesium Level 2.0 MG/DL (1.8-2.4) Total Bilirubin 0.2 MG/DL (0.2-1.0) Aspartate Amino Transf (AST/SGOT) 25 U/L (15-37) Alanine Aminotransferase (ALT/SGPT) 22 U/L (12-78) Alkaline Phosphatase 107 U/L (46-116) Total Protein 7.3 G/DL (6.4-8.2) Albumin 1.3 G/DL (3.4-5.0) L Globulin 6.0 g/dL Albumin/Globulin Ratio 0.2 (1.0-2.7) L Shani Moses MD Apr 21, 2018 11:46
[2018-04-21 12:00] VITALS: BP 121/58
[2018-04-21] MEDS ORDERED: Trimethoprim/Sulfamethoxazole 15 ML in D5W 500ml 550 ML IV SCH (14:00)
[2018-04-21] MEDS ORDERED: NS 500ML ONE (14:52)
[2018-04-21] MEDS ORDERED: Tubing IV Secondary IV ONE (14:52)
[2018-04-21] MEDS: Morphine Sulfate 4mg/ml Inj IVP PRN (15:41)
[2018-04-21 16:00] VITALS: BP 115/66
[2018-04-21] MEDS ORDERED: Trimethoprim/Sulfamethoxazole 15 ML in D5W 500ml 550 ML IV ONE (16:00)
--- NOTE | 2018-04-21 16:26 | General Surgery Progress Note ---
General Surgery-Progress Note Subjective Additional Comments no acute events. Objective Last 24 Hour Vital Signs Date Time Temp Pulse Resp B/P (MAP) Pulse Ox O2 Delivery O2 Flow Rate FiO2 04/21/18 16:00 101.2 107 18 115/66 100 Mechanical Ventilator 35 101.2 04/21/18 16:00 35 04/21/18 16:00 107 04/21/18 15:40 101.6 04/21/18 14:58 104 19 35 04/21/18 13:22 100 17 35 04/21/18 12:00 35 04/21/18 12:00 96 04/21/18 12:00 99.7 102 17 121/58 100 Mechanical Ventilator 35 99.7 04/21/18 10:54 95 17 35 04/21/18 09:06 96 17 35 04/21/18 08:55 100 125/81 04/21/18 08:00 97 04/21/18 08:00 35 04/21/18 08:00 99.5 100 17 125/81 100 Mechanical Ventilator 35 99.5 04/21/18 07:13 99 17 35 04/21/18 06:47 100.1 04/21/18 05:48 100.6 04/21/18 04:45 109 16 35 04/21/18 04:00 100.6 108 18 129/64 100 Mechanical Ventilator 35 100.6 04/21/18 04:00 108 04/21/18 04:00 35 04/21/18 02:31 113 16 35 04/21/18 00:56 116 16 35 04/21/18 00:00 35 04/21/18 00:00 98.8 101 17 154/76 100 Mechanical Ventilator 35 98.8 04/20/18 23:34 102 04/20/18 23:07 111 16 35 04/20/18 21:28 114 135/86 04/20/18 20:59 114 16 35 04/20/18 20:00 35 04/20/18 20:00 99.2 112 16 135/86 100 Mechanical Ventilator 35 99.2 04/20/18 20:00 119 04/20/18 19:19 112 16 35 04/20/18 17:19 101.2 04/20/18 17:13 132 21 35 I&O Intake and Output 04/20/18 04/21/18 19:00 07:00 Intake Total 1097.5 ml 970 ml Output Total 500 ml 200 ml Balance 597.5 ml 770 ml Intake Free Water 600 ml 400 ml IV Total 137.5 ml 110 ml Tube Feeding 360 ml 360 ml Other 100 ml Output Urine Total 500 ml 200 ml Dressing: saturated Wound: clean Drains: none Cardiovascular: RSR Respiratory: clear Abdomen: soft, flat Laboratory Tests Test 04/21/18 01:00 04/21/18 03:45 Urine Color Yellow Urine Appearance Cloudy Urine pH 6.5 (4.5-8.0) Urine Specific [place] 1.015 (1.005-1.035) Urine Protein 2+ (NEGATIVE) H Urine Glucose (UA) Negative (NEGATIVE) Urine Ketones Negative (NEGATIVE) Urine Occult Blood 1+ (NEGATIVE) H Urine Nitrite Negative (NEGATIVE) Urine Bilirubin Negative (NEGATIVE) Urine Urobilinogen Normal MG/DL (0.0-1.0) Urine Leukocyte Esterase 1+ (NEGATIVE) H Urine RBC 2-4 /HPF (0 - 0) H Urine WBC 2-4 /HPF (0 - 0) Urine Squamous Epithelial Cells Few /LPF (NONE/OCC) Urine Calcium Oxalate Crystals Few /LPF (NONE) Urine Bacteria Few /HPF (NONE) Urine Yeast Many /HPF (NONE) H White Blood Count 11.5 K/UL (4.8-10.8) H Red Blood Count 3.43 M/UL (4.70-6.10) L Hemoglobin 9.5 G/DL (14.2-18.0) L Hematocrit 30.8 % (42.0-52.0) L Mean Corpuscular Volume 90 FL (80-99) Mean Corpuscular Hemoglobin 27.8 PG (27.0-31.0) Mean Corpuscular Hemoglobin Concent 31.0 G/DL (32.0-36.0) L Red Cell Distribution Width 15.0 % (11.6-14.8) H Platelet Count 476 K/UL (150-450) H Mean Platelet Volume 6.8 FL (6.5-10.1) Neutrophils (%) (Auto) 73.4 % (45.0-75.0) Lymphocytes (%) (Auto) 14.1 % (20.0-45.0) L Monocytes (%) (Auto) 6.1 % (1.0-10.0) Eosinophils (%) (Auto) 6.1 % (0.0-3.0) H Basophils (%) (Auto) 0.4 % (0.0-2.0) Sodium Level 150 MMOL/L (136-145) H Potassium Level 3.9 MMOL/L (3.5-5.1) Chloride Level 117 MMOL/L (98-107) H Carbon Dioxide Level 22 MMOL/L (21-32) Anion Gap 11 mmol/L (5-15) Blood Urea Nitrogen 15 mg/dL (7-18) Creatinine 0.9 MG/DL (0.55-1.30) Estimat Glomerular Filtration Rate > 60 mL/min (>60) Glucose Level 106 MG/DL (74-106) Calcium Level 8.4 MG/DL (8.5-10.1) L Phosphorus Level 3.0 MG/DL (2.5-4.9) Magnesium Level 2.0 MG/DL (1.8-2.4) Total Bilirubin 0.2 MG/DL (0.2-1.0) Aspartate Amino Transf (AST/SGOT) 25 U/L (15-37) Alanine Aminotransferase (ALT/SGPT) 22 U/L (12-78) Alkaline Phosphatase 107 U/L (46-116) Total Protein 7.3 G/DL (6.4-8.2) Albumin 1.3 G/DL (3.4-5.0) L Globulin 6.0 g/dL Albumin/Globulin Ratio 0.2 (1.0-2.7) L Plan Problems: (1) Sacral decubitus ulcer, stage IV Assessment & Plan: stage IV sacral decubitus ulcer - clean, no signs of active infection, no tracking, down to coccyx, some granulation tissue, no significant fibrinous tissue stage IV left hip decubitus ulcer - clean, no signs of active infection, mild 3 o'clock tracking, some granulation tissue, mild fibrinous tissue stage IV left buttock decubitus ulcer - clean, no signs of active infection, no tracking, some granulation tissue, mild fibrinous tissue stage IV right hip decubitus ulcer - clean, no signs of active infection, no tracking, some granulation tissue, moderate fibrinous tissue stage IV right buttock decubitus ulcer - clean, no signs of active infection, no tracking, some granulation tissue, moderate fibrinous tissue bilateral heel/foot wounds - no signs of active infection. All wounds present upon admission. As for care, for now please was wounds, place dry guaze to wound bed, then cover with foam dressing or ABD 2-3 times per day. may need debridement of right hip and buttock wounds to help with healing but for now will monitor. thank you for this consultation. will follow with raul. Derek Dong Apr 21, 2018 16:26
--- NOTE | 2018-04-21 16:28 | Internal Med Progress Note ---
Subjective Date of Service: Apr 21, 2018 Physician Name Aaron Solis Attending Physician Shani Moses MD Current Medications Medications (Trade) Dose Ordered Sig/Tameka Route PRN Reason Start Time Stop Time Status Last Admin Dose Admin Acetaminophen (Tylenol) 650 mg Q4H PRN ORAL FEVER 04/17/18 20:00 05/17/18 19:59 04/21/18 15:40 Albuterol/ Ipratropium (Albuterol/ Ipratropium) 3 ml EVERY 4 HOURS PRN HHN Shortness of Breath 04/17/18 20:00 04/22/18 19:59 Amiodarone HCl (Cordarone) 200 mg DAILY GT 04/18/18 09:00 05/18/18 08:59 04/21/18 08:55 Carvedilol (Coreg) 6.25 mg EVERY 12 HOURS ORAL 04/20/18 21:00 05/20/18 20:59 04/21/18 08:55 Dextrose (Dextrose 50%) 25 ml STAT PRN IV BS 60-69mg/dl 04/17/18 20:15 05/17/18 20:14 Dextrose (Dextrose 50%) 50 ml STAT PRN IV BS less than 60mg/dl 04/17/18 20:00 05/17/18 19:59 Heparin Sodium (Porcine) (Heparin 5000 units/ml) 5,000 units EVERY 12 HOURS SUBQ 04/17/18 21:00 05/17/18 20:59 04/21/18 08:56 Iopamidol (Isovue-300 100ml) 100 ml NOW PRN INJ Radiology Procedure 04/17/18 14:45 Levetiracetam (Keppra) 500 mg Q12HR GT 04/17/18 21:00 05/17/18 20:59 04/21/18 08:55 Lorazepam (Ativan 2mg/ml 1ml) 2 mg EVERY 2 HOURS PRN IV For Anxiety 04/17/18 20:00 04/24/18 19:59 Meropenem 1 gm/ Sodium Chloride 55 ml @ 110 mls/hr Q8HR IVPB 04/20/18 14:00 04/25/18 13:59 04/21/18 14:46 Morphine Sulfate (Morphine Sulfate) 4 mg EVERY 4 HOURS PRN IVP Severe Pain (Pain Scale 7-10) 04/17/18 20:00 04/24/18 19:59 04/21/18 15:41 Ondansetron HCl (Zofran) 4 mg Q6H PRN IVP Nausea & Vomiting 04/17/18 20:00 05/17/18 19:59 Pantoprazole (Protonix) 40 mg DAILY IV 04/18/18 09:00 05/18/18 08:59 04/21/18 08:55 Polyethylene Glycol (Miralax) 17 gm DAILYPRN PRN ORAL Constipation 04/17/18 20:00 05/17/18 19:59 Trimethoprim/ Sulfamethoxazole 15 ml/Dextrose 565 ml @ 565 mls/hr EVERY 8 HOURS IV 04/21/18 22:00 04/28/18 13:59 Trimethoprim/ Sulfamethoxazole 15 ml/Dextrose 565 ml @ 565 mls/hr ONCE ONCE IV 04/21/18 16:00 04/21/18 16:59 Allergies: Coded Allergies: No Known Allergies (Unverified , 03/07/17) ROS Limited/Unobtainable: Yes Subjective 58 YO M with chronic respiratory failure and vent dependence admitted with respiratory distress. Now pneumonia and sepsis. Cover for Int Med-Dr Box. LIGIA Objective Last Vital Signs Date Time Temp Pulse Resp B/P (MAP) Pulse Ox O2 Delivery O2 Flow Rate FiO2 04/21/18 16:00 101.2 107 18 115/66 100 Mechanical Ventilator 35 101.2 Laboratory Tests Test 04/21/18 01:00 04/21/18 03:45 Urine Color Yellow Urine Appearance Cloudy Urine pH 6.5 (4.5-8.0) Urine Specific [place] 1.015 (1.005-1.035) Urine Protein 2+ (NEGATIVE) H Urine Glucose (UA) Negative (NEGATIVE) Urine Ketones Negative (NEGATIVE) Urine Occult Blood 1+ (NEGATIVE) H Urine Nitrite Negative (NEGATIVE) Urine Bilirubin Negative (NEGATIVE) Urine Urobilinogen Normal MG/DL (0.0-1.0) Urine Leukocyte Esterase 1+ (NEGATIVE) H Urine RBC 2-4 /HPF (0 - 0) H Urine WBC 2-4 /HPF (0 - 0) Urine Squamous Epithelial Cells Few /LPF (NONE/OCC) Urine Calcium Oxalate Crystals Few /LPF (NONE) Urine Bacteria Few /HPF (NONE) Urine Yeast Many /HPF (NONE) H White Blood Count 11.5 K/UL (4.8-10.8) H Red Blood Count 3.43 M/UL (4.70-6.10) L Hemoglobin 9.5 G/DL (14.2-18.0) L Hematocrit 30.8 % (42.0-52.0) L Mean Corpuscular Volume 90 FL (80-99) Mean Corpuscular Hemoglobin 27.8 PG (27.0-31.0) Mean Corpuscular Hemoglobin Concent 31.0 G/DL (32.0-36.0) L Red Cell Distribution Width 15.0 % (11.6-14.8) H Platelet Count 476 K/UL (150-450) H Mean Platelet Volume 6.8 FL (6.5-10.1) Neutrophils (%) (Auto) 73.4 % (45.0-75.0) Lymphocytes (%) (Auto) 14.1 % (20.0-45.0) L Monocytes (%) (Auto) 6.1 % (1.0-10.0) Eosinophils (%) (Auto) 6.1 % (0.0-3.0) H Basophils (%) (Auto) 0.4 % (0.0-2.0) Sodium Level 150 MMOL/L (136-145) H Potassium Level 3.9 MMOL/L (3.5-5.1) Chloride Level 117 MMOL/L (98-107) H Carbon Dioxide Level 22 MMOL/L (21-32) Anion Gap 11 mmol/L (5-15) Blood Urea Nitrogen 15 mg/dL (7-18) Creatinine 0.9 MG/DL (0.55-1.30) Estimat Glomerular Filtration Rate > 60 mL/min (>60) Glucose Level 106 MG/DL (74-106) Calcium Level 8.4 MG/DL (8.5-10.1) L Phosphorus Level 3.0 MG/DL (2.5-4.9) Magnesium Level 2.0 MG/DL (1.8-2.4) Total Bilirubin 0.2 MG/DL (0.2-1.0) Aspartate Amino Transf (AST/SGOT) 25 U/L (15-37) Alanine Aminotransferase (ALT/SGPT) 22 U/L (12-78) Alkaline Phosphatase 107 U/L (46-116) Total Protein 7.3 G/DL (6.4-8.2) Albumin 1.3 G/DL (3.4-5.0) L Globulin 6.0 g/dL Albumin/Globulin Ratio 0.2 (1.0-2.7) L Microbiology Date/Time Source Procedure Growth Status 04/19/18 03:00 Stool Clostridium difficile Toxin Assay - Final Complete Intake and Output 04/20/18 04/21/18 19:00 07:00 Intake Total 1097.5 ml 970 ml Output Total 500 ml 200 ml Balance 597.5 ml 770 ml Intake Free Water 600 ml 400 ml IV Total 137.5 ml 110 ml Tube Feeding 360 ml 360 ml Other 100 ml Output Urine Total 500 ml 200 ml Objective General Appearance: cachetic, lethargic, thin EENT: normal ENT inspection Neck: non-tender, stiff neck, other - tracheostomy present Cardiovascular: normal peripheral pulses, normal rate, regular rhythm, no gallop/murmur, no JVD Respiratory/Chest: crackles/rales, rhonchi - bilaterally, expiratory wheezing Abdomen: normal bowel sounds, non tender, soft, no organomegaly, no mass Extremities: other - contracted X 4 Skin: normal pigmentation, warm/dry; stage IV sacral decubitus ulcer Assessment/Plan Problem List: (1) Pneumonia Assessment & Plan: Stenotrophomonas Maltophilia and Gram neg jose luis. Await ID and sensitivity. See pulmonary and ID note. Continue zosyn and vanco (2) Seizure disorder Assessment & Plan: Continue Keppra (3) Hypertension Assessment & Plan: Continue coreg (4) Diabetes mellitus type II, uncontrolled (5) Sacral decubitus ulcer, stage IV Assessment & Plan: Possible chronic osteomyelitis-continue antibiotic per ID. See surgery consult (6) CHF (congestive heart failure) (7) Cardiomyopathy (8) Tracheostomy care (9) Cerebral vascular disease (10) Acute on chronic respiratory failure (11) Sepsis Assessment & Plan: await blood culture results. Continue zosyn and vanco (12) Leukocytosis (13) Anemia Assessment & Plan: S/P transfusion 2 units PRBC. (14) Atrial fibrillation Assessment & Plan: Continue amiodarone (15) Feeding by G-tube Status: not improved Aaron Solis MD Apr 21, 2018 16:28
--- NOTE | 2018-04-21 17:48 | Cardiology Progress Note ---
Assessment/Plan Assessment/Plan Continue coreg for cardiomyopathy - increased dose due to tachycardia - continue to titrate as tolerated Amiodarone for hx of VT ICD in place - no recent shocks Continue antibiotics for fever and elevated WBC Follow up blood and urine cultures CXR reviewed - clear no PNA/effusions Free water for hypernatremia Supprotive care Subjective Cardiovascular: Reports: no symptoms Respiratory: Reports: no symptoms Gastrointestinal/Abdominal: Reports: no symptoms Genitourinary: Reports: no symptoms Subjective no acute events, vitals stable, slept well, on vent Objective Last 24 Hour Vital Signs Date Time Temp Pulse Resp B/P (MAP) Pulse Ox O2 Delivery O2 Flow Rate FiO2 04/21/18 16:52 100 17 35 04/21/18 16:39 99.5 04/21/18 16:11 99.5 04/21/18 16:00 101.2 107 18 115/66 100 Mechanical Ventilator 35 101.2 04/21/18 16:00 35 04/21/18 16:00 107 04/21/18 15:40 101.6 04/21/18 14:58 104 19 35 04/21/18 13:22 100 17 35 04/21/18 12:00 35 04/21/18 12:00 96 04/21/18 12:00 99.7 102 17 121/58 100 Mechanical Ventilator 35 99.7 04/21/18 10:54 95 17 35 04/21/18 09:06 96 17 35 04/21/18 08:55 100 125/81 04/21/18 08:00 97 04/21/18 08:00 35 04/21/18 08:00 99.5 100 17 125/81 100 Mechanical Ventilator 35 99.5 04/21/18 07:13 99 17 35 04/21/18 05:48 100.6 04/21/18 04:45 109 16 35 04/21/18 04:00 100.6 108 18 129/64 100 Mechanical Ventilator 35 100.6 04/21/18 04:00 108 04/21/18 04:00 35 04/21/18 02:31 113 16 35 04/21/18 00:56 116 16 35 04/21/18 00:00 35 04/21/18 00:00 98.8 101 17 154/76 100 Mechanical Ventilator 35 98.8 04/20/18 23:34 102 04/20/18 23:07 111 16 35 04/20/18 21:28 114 135/86 04/20/18 20:59 114 16 35 04/20/18 20:00 35 04/20/18 20:00 99.2 112 16 135/86 100 Mechanical Ventilator 35 99.2 04/20/18 20:00 119 04/20/18 19:19 112 16 35 General Appearance: no apparent distress EENT: PERRL/EOMI Neck: normal alignment Rhythm: NSR Cardiovascular: normal peripheral pulses Respiratory/Chest: chest wall non-tender, rhonchi - bilaterally, stridor Abdomen: normal bowel sounds Extremities: normal range of motion, inflammation Neurologic: no motor/sensory deficits Intake and Output 04/20/18 04/21/18 19:00 07:00 Intake Total 1097.5 ml 970 ml Output Total 500 ml 200 ml Balance 597.5 ml 770 ml Intake Free Water 600 ml 400 ml IV Total 137.5 ml 110 ml Tube Feeding 360 ml 360 ml Other 100 ml Output Urine Total 500 ml 200 ml Laboratory Tests Test 04/21/18 01:00 04/21/18 03:45 Urine Color Yellow Urine Appearance Cloudy Urine pH 6.5 (4.5-8.0) Urine Specific [place] 1.015 (1.005-1.035) Urine Protein 2+ (NEGATIVE) H Urine Glucose (UA) Negative (NEGATIVE) Urine Ketones Negative (NEGATIVE) Urine Occult Blood 1+ (NEGATIVE) H Urine Nitrite Negative (NEGATIVE) Urine Bilirubin Negative (NEGATIVE) Urine Urobilinogen Normal MG/DL (0.0-1.0) Urine Leukocyte Esterase 1+ (NEGATIVE) H Urine RBC 2-4 /HPF (0 - 0) H Urine WBC 2-4 /HPF (0 - 0) Urine Squamous Epithelial Cells Few /LPF (NONE/OCC) Urine Calcium Oxalate Crystals Few /LPF (NONE) Urine Bacteria Few /HPF (NONE) Urine Yeast Many /HPF (NONE) H White Blood Count 11.5 K/UL (4.8-10.8) H Red Blood Count 3.43 M/UL (4.70-6.10) L Hemoglobin 9.5 G/DL (14.2-18.0) L Hematocrit 30.8 % (42.0-52.0) L Mean Corpuscular Volume 90 FL (80-99) Mean Corpuscular Hemoglobin 27.8 PG (27.0-31.0) Mean Corpuscular Hemoglobin Concent 31.0 G/DL (32.0-36.0) L Red Cell Distribution Width 15.0 % (11.6-14.8) H Platelet Count 476 K/UL (150-450) H Mean Platelet Volume 6.8 FL (6.5-10.1) Neutrophils (%) (Auto) 73.4 % (45.0-75.0) Lymphocytes (%) (Auto) 14.1 % (20.0-45.0) L Monocytes (%) (Auto) 6.1 % (1.0-10.0) Eosinophils (%) (Auto) 6.1 % (0.0-3.0) H Basophils (%) (Auto) 0.4 % (0.0-2.0) Sodium Level 150 MMOL/L (136-145) H Potassium Level 3.9 MMOL/L (3.5-5.1) Chloride Level 117 MMOL/L (98-107) H Carbon Dioxide Level 22 MMOL/L (21-32) Anion Gap 11 mmol/L (5-15) Blood Urea Nitrogen 15 mg/dL (7-18) Creatinine 0.9 MG/DL (0.55-1.30) Estimat Glomerular Filtration Rate > 60 mL/min (>60) Glucose Level 106 MG/DL (74-106) Calcium Level 8.4 MG/DL (8.5-10.1) L Phosphorus Level 3.0 MG/DL (2.5-4.9) Magnesium Level 2.0 MG/DL (1.8-2.4) Total Bilirubin 0.2 MG/DL (0.2-1.0) Aspartate Amino Transf (AST/SGOT) 25 U/L (15-37) Alanine Aminotransferase (ALT/SGPT) 22 U/L (12-78) Alkaline Phosphatase 107 U/L (46-116) Total Protein 7.3 G/DL (6.4-8.2) Albumin 1.3 G/DL (3.4-5.0) L Globulin 6.0 g/dL Albumin/Globulin Ratio 0.2 (1.0-2.7) L Microbiology Date/Time Source Procedure Growth Status 6/3/18 03:00 Stool Clostridium difficile Toxin Assay - Final Complete Fausto Berg M.D. Apr 21, 2018 17:48
[2018-04-21 20:00] VITALS: BP 127/73
[2018-04-21] MEDS: Trimethoprim/Sulfamethoxazole 15 ML in D5W 500ml 550 ML IV SCH (21:20)
[2018-04-22] VITALS: BP 125/77
[2018-04-22 02:25] LABS: BASOPHILS % (AUTO) 0.3 % (0.0-2.0); EOSINOPHILS % (AUTO) 6.5 % (0.0-3.0); HEMATOCRIT 28.1 % (42.0-52.0); HEMOGLOBIN 8.7 G/DL (14.2-18.0); LYMPHOCYTES % (AUTO) 15.1 % (20.0-45.0); MEAN CORPUSCULAR VOLUME 89 FL (80-99); MONOCYTES % (AUTO) 7.7 % (1.0-10.0); NEUTROPHILS % (AUTO) 70.4 % (45.0-75.0); PLATELET COUNT 478 K/UL (150-450); RED BLOOD COUNT 3.18 M/UL (4.70-6.10); RED CELL DISTRIBUTION WIDTH 14.8 % (11.6-14.8); WHITE BLOOD COUNT 13.1 K/UL (4.8-10.8)
[2018-04-22 02:52] LABS: PHOSPHORUS 2.5 MG/DL (2.5-4.9)
[2018-04-22 02:54] LABS: ALANINE AMINOTRANSFERASE 19 U/L (12-78); ALBUMIN 1.2 G/DL (3.4-5.0); ALBUMIN/GLOBULIN RATIO 0.2 (1.0-2.7); ALKALINE PHOSPHATASE 105 U/L (46-116); ANION GAP 8 mmol/L (5-15); ASPARTATE AMINO TRANSFERASE 16 U/L (15-37); BILIRUBIN,TOTAL 0.2 MG/DL (0.2-1.0); BLOOD UREA NITROGEN 13 mg/dL (7-18); CALCIUM 8.2 MG/DL (8.5-10.1); CARBON DIOXIDE 24 MMOL/L (21-32); CHLORIDE 112 MMOL/L (98-107); CREATININE 0.9 MG/DL (0.55-1.30); POTASSIUM 3.8 MMOL/L (3.5-5.1); SODIUM 144 MMOL/L (136-145)
[2018-04-22] MEDS: Morphine Sulfate 4mg/ml Inj IVP PRN (02:58)
[2018-04-22 04:00] VITALS: BP 119/71
[2018-04-22] MEDS: Meropenem 1 GM in NS 55 ML IVPB SCH ×3 (05:40→21:45)
[2018-04-22] MEDS: Trimethoprim/Sulfamethoxazole 15 ML in D5W 500ml 550 ML IV SCH ×3 (06:15→21:46)
--- NOTE | 2018-04-22 08:31 | Nephrology Progress Note ---
Assessment/Plan Assessment/Plan 1. Hypernatremia- Na down to 144. Decrease free water in GTube. Resolved 2. Nosocomial PNA- on Abx, defer to ID and Pulm. 3. Hypokalemia - Corrected 4. Dehydration- resolved Subjective Date patient seen: Apr 22, 2018 Time patient seen: 08:28 ROS Limited/Unobtainable: Yes Allergies: Coded Allergies: No Known Allergies (Unverified , 03/07/17) Subjective Patient trached on the vent in no distress Objective Last 24 Hour Vital Signs Date Time Temp Pulse Resp B/P (MAP) Pulse Ox O2 Delivery O2 Flow Rate FiO2 04/22/18 08:00 35 04/22/18 07:03 95 18 35 04/22/18 04:59 91 18 35 04/22/18 04:00 97.9 98 18 119/71 96 Mechanical Ventilator 35 97.9 04/22/18 04:00 35 04/22/18 03:46 89 04/22/18 03:15 90 17 35 04/22/18 01:43 95 18 35 04/22/18 00:00 96.8 100 22 125/77 97 Mechanical Ventilator 35 96.8 04/22/18 00:00 35 04/21/18 23:46 91 04/21/18 23:20 93 16 35 04/21/18 21:20 102 127/73 04/21/18 20:31 102 17 35 04/21/18 20:00 96.4 106 20 127/73 100 Mechanical Ventilator 35 96.4 04/21/18 20:00 35 04/21/18 19:27 105 16 35 04/21/18 19:25 102 04/21/18 16:52 100 17 35 04/21/18 16:39 99.5 04/21/18 16:30 99.8 99.8 04/21/18 16:11 99.5 04/21/18 16:00 101.2 107 18 115/66 100 Mechanical Ventilator 35 101.2 04/21/18 16:00 35 04/21/18 16:00 107 04/21/18 15:40 101.6 04/21/18 14:58 104 19 35 04/21/18 13:22 100 17 35 04/21/18 12:00 35 04/21/18 12:00 96 04/21/18 12:00 99.7 102 17 121/58 100 Mechanical Ventilator 35 99.7 04/21/18 10:54 95 17 35 04/21/18 09:06 96 17 35 04/21/18 08:55 100 125/81 Intake and Output 04/21/18 04/22/18 19:00 07:00 Intake Total 1680 ml 1698 ml Output Total 300 ml 800 ml Balance 1380 ml 898 ml Intake Free Water 700 ml 200 ml IV Total 620 ml 1098 ml Tube Feeding 360 ml 300 ml Other 100 ml Output Urine Total 300 ml 800 ml Laboratory Tests 04/22/18 02:15: White Blood Count 13.1H, Red Blood Count 3.18L, Hemoglobin 8.7L, Hematocrit 28.1L, Mean Corpuscular Volume 89, Mean Corpuscular Hemoglobin 27.5, Mean Corpuscular Hemoglobin Concent 31.0L, Red Cell Distribution Width 14.8, Platelet Count 478H, Mean Platelet Volume 6.3L, Neutrophils (%) (Auto) 70.4, Lymphocytes (%) (Auto) 15.1L, Monocytes (%) (Auto) 7.7, Eosinophils (%) (Auto) 6.5H, Basophils (%) (Auto) 0.3, Erythrocyte Sedimentation Rate 124H, Sodium Level 144, Potassium Level 3.8, Chloride Level 112H, Carbon Dioxide Level 24, Anion Gap 8, Blood Urea Nitrogen 13, Creatinine 0.9, Estimat Glomerular Filtration Rate > 60, Glucose Level 94, Calcium Level 8.2L, Phosphorus Level 2.5 , Magnesium Level 1.9, Total Bilirubin 0.2, Aspartate Amino Transf (AST/SGOT) 16 , Alanine Aminotransferase (ALT/SGPT) 19, Alkaline Phosphatase 105, C-Reactive Protein, Quantitative 6.3H, Total Protein 6.8, Albumin 1.2L, Globulin 5.6, Albumin/Globulin Ratio 0.2L, Lipase 43L, Vancomycin Level Trough 7.7 Height (Feet): 5 Height (Inches): 8.00 Weight (Pounds): 129 General Appearance: no apparent distress, alert EENT: normal ENT inspection Neck: normal alignment, supple Cardiovascular: normal rate, regular rhythm Respiratory/Chest: lungs clear, normal breath sounds Abdomen: non tender, soft Edema: no edema noted Arm (L), no edema noted Arm (R), no edema noted Leg (L), no edema noted Leg (R), no edema noted Pedal (L), no edema noted Pedal (R), no edema noted Generalized Alexandro High M.D. Apr 22, 2018 08:31
[2018-04-22 08:45] VITALS: BP 109/69
--- NOTE | 2018-04-22 08:45 | Consultation ---
DATE OF CONSULTATION: 04/21/2018 HEMATOLOGY/ONCOLOGY CONSULTATION CONSULTING PHYSICIAN: Venancio James M.D. REQUESTING PHYSICIAN: Shani Moses M.D. REASON FOR CONSULTATION: Evaluation of ongoing anemia. IDENTIFYING DATA: Dear Dr. Moses, The patient is a pleasant 58-year-old male with past medical history significant for chronic respiratory failure, on a vent; CHF; cardiomyopathy; atrial fibrillation; dysphagia; chronic encephalopathy, who presented to the ER with fever, long-term resident of [facility], had a trach and vent, found to be anemic, severe, 2003. Most of the history obtained from the chart, has been seen by Cardiology, on Coreg for cardiomyopathy, on amiodarone for history of ventricular tachycardia, ICD in place, on antibiotics as well. Seen by ID Service as well, left posterior basilar pneumonia, multiple lower extremity decubitus ulcerations, stage IV decubitus ulceration noted as well, likely chronic osteo, no evidence of active infection. Hematology Service consulted for ongoing anemia. PAST MEDICAL HISTORY: As noted above. PAST SURGICAL HISTORY: AICD, PEG, and trach. CURRENT MEDICATIONS: Reviewed. ALLERGIES: No known drug allergies. SOCIAL HISTORY: Resident of [facility]. No alcohol, tobacco, or illicit drug use. REVIEW OF SYSTEMS: CONSTITUTIONAL: No fever, chills, or night sweats. SKIN: No rashes, bumps, or itching. HEENT: No headache, hearing or vision changes. BREASTS: No lumps, pain, or discharge. PULMONARY: No cough, sputum, or shortness of breath. GASTROINTESTINAL: No nausea, vomiting, or diarrhea. GENITOURINARY: No dysuria, frequency, or urgency. MUSCULOSKELETAL: No joint swelling, muscle pain, or trauma. PHYSICAL EXAMINATION: VITAL SIGNS: Reviewed. GENERAL: No distress. LUNGS: Decreased breath sounds. CARDIOVASCULAR: Regular rate. No S3 or S4. Status post trach. ABDOMEN: Soft, nontender, and nondistended. Status post PEG. EXTREMITIES: 1+ edema. LABORATORY AND DIAGNOSTIC DATA: WBC 11.5, hemoglobin 9.5, hematocrit 31, and platelet 476,000. INR of 1.2. Prothrombin time of 35. BUN of 15 and creatinine 0.9. BNP of 3100. IMAGING: Duplex lower extremity performed and DVT system is noted. CAT scan of the abdomen and pelvis. CAT scan results are reviewed. Left posterior basilar pneumonia suspected. Grade IV sacral decubitus ulceration. G-tube in place. contraction. ASSESSMENT AND RECOMMENDATION: 1. Anemia due to underlying chronic disease. Continue to closely monitor for improvement. Anemia workup has been reviewed. B12 of 1458. Homocysteine less than 3. CEA of 9.2. 2. Elevated CEA, has had an endoscopy before and current CEA has been improving. It has been stable, though remains elevated at this time at 9.3. Continue to closely monitor with GI Service. 3. Coagulopathy potentially secondary to hepatitis C, which was positive on 03/13/2017. Consider to obtain new value and ID Service to follow. 4. Pneumonia, being treated with antibiotics, broad-spectrum. 5. Ventilator-dependent respiratory failure. 6. Stage IV decubitus ulceration. No signs of active infection. Clear margins. 7. Leukocytosis, currently improved on antibiotics. I appreciate the consultation. Venancio James M.D. DR: MINDY JOB#: [id number] CC:
[2018-04-22] MEDS: levETIRAcetam 500mg/5ml Liquid GT SCH ×2 (09:11→21:45)
[2018-04-22] MEDS: Carvedilol 6.25mg Tab ORAL SCH ×2 (09:11→21:45)
[2018-04-22] MEDS: Amiodarone 200mg tab GT SCH (09:11)
[2018-04-22] MEDS: Pantoprazole Inj IV SCH (09:11)
[2018-04-22] MEDS: Heparin 5000 units/ml inj SUBQ SCH ×2 (09:12→21:51)
--- NOTE | 2018-04-22 10:33 | Pulmonolgy Critical Care Note ---
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 Discussed with: nurses, consultants Critical Care - Objective Last 24 Hour Vital Signs Date Time Temp Pulse Resp B/P (MAP) Pulse Ox O2 Delivery O2 Flow Rate FiO2 04/22/18 09:17 98 19 35 04/22/18 09:11 98 109/69 04/22/18 08:45 98.4 98 18 109/69 100 Mechanical Ventilator 35 98.4 04/22/18 08:00 94 04/22/18 08:00 35 04/22/18 07:03 95 18 35 04/22/18 04:59 91 18 35 04/22/18 04:00 97.9 98 18 119/71 96 Mechanical Ventilator 35 97.9 04/22/18 04:00 35 04/22/18 03:46 89 04/22/18 03:15 90 17 35 04/22/18 01:43 95 18 35 04/22/18 00:00 96.8 100 22 125/77 97 Mechanical Ventilator 35 96.8 04/22/18 00:00 35 04/21/18 23:46 91 04/21/18 23:20 93 16 35 04/21/18 21:20 102 127/73 04/21/18 20:31 102 17 35 04/21/18 20:00 96.4 106 20 127/73 100 Mechanical Ventilator 35 96.4 04/21/18 20:00 35 04/21/18 19:27 105 16 35 04/21/18 19:25 102 04/21/18 16:52 100 17 35 04/21/18 16:39 99.5 04/21/18 16:30 99.8 99.8 04/21/18 16:11 99.5 04/21/18 16:00 101.2 107 18 115/66 100 Mechanical Ventilator 35 101.2 04/21/18 16:00 35 04/21/18 16:00 107 04/21/18 15:40 101.6 04/21/18 14:58 104 19 35 04/21/18 13:22 100 17 35 04/21/18 12:00 35 04/21/18 12:00 96 04/21/18 12:00 99.7 102 17 121/58 100 Mechanical Ventilator 35 99.7 04/21/18 10:54 95 17 35 Status: awake Condition: critical HEENT: atraumatic Lungs: chest wall tender Heart: HR/BP stable, regular Abdomen: soft, active bowel sounds, feeding tube Extremities: edema Decubiti: location Micro: Microbiology Date/Time Source Procedure Growth Status 04/21/18 01:00 Urine,Clean Catch Urine Culture - Preliminary Gram Negative Bacillus 1 Resulted Critical Care - Subjective ROS Limited/Unobtainable: No Condition: critical EKG Rhythm: Sinus Rhythm FI02: 35 Vent Support Breath Rate: 16 Vent Support Mode: AC Vent Tidal Volume: 600 Sputum Amount: Scant PEEP: 5.0 PIP: 21 Tube Feeding Amount: 30 I&O: Intake and Output 04/21/18 04/22/18 19:00 07:00 Intake Total 1680 ml 1698 ml Output Total 300 ml 800 ml Balance 1380 ml 898 ml Intake Free Water 700 ml 200 ml IV Total 620 ml 1098 ml Tube Feeding 360 ml 300 ml Other 100 ml Output Urine Total 300 ml 800 ml Labs: ` Laboratory Tests Test 04/22/18 02:15 White Blood Count 13.1 K/UL (4.8-10.8) H Red Blood Count 3.18 M/UL (4.70-6.10) L Hemoglobin 8.7 G/DL (14.2-18.0) L Hematocrit 28.1 % (42.0-52.0) L Mean Corpuscular Volume 89 FL (80-99) Mean Corpuscular Hemoglobin 27.5 PG (27.0-31.0) Mean Corpuscular Hemoglobin Concent 31.0 G/DL (32.0-36.0) L Red Cell Distribution Width 14.8 % (11.6-14.8) Platelet Count 478 K/UL (150-450) H Mean Platelet Volume 6.3 FL (6.5-10.1) L Neutrophils (%) (Auto) 70.4 % (45.0-75.0) Lymphocytes (%) (Auto) 15.1 % (20.0-45.0) L Monocytes (%) (Auto) 7.7 % (1.0-10.0) Eosinophils (%) (Auto) 6.5 % (0.0-3.0) H Basophils (%) (Auto) 0.3 % (0.0-2.0) Erythrocyte Sedimentation Rate 124 MM/HR (0-20) H Sodium Level 144 MMOL/L (136-145) Potassium Level 3.8 MMOL/L (3.5-5.1) Chloride Level 112 MMOL/L (98-107) H Carbon Dioxide Level 24 MMOL/L (21-32) Anion Gap 8 mmol/L (5-15) Blood Urea Nitrogen 13 mg/dL (7-18) Creatinine 0.9 MG/DL (0.55-1.30) Estimat Glomerular Filtration Rate > 60 mL/min (>60) Glucose Level 94 MG/DL (74-106) Calcium Level 8.2 MG/DL (8.5-10.1) L Phosphorus Level 2.5 MG/DL (2.5-4.9) Magnesium Level 1.9 MG/DL (1.8-2.4) Total Bilirubin 0.2 MG/DL (0.2-1.0) Aspartate Amino Transf (AST/SGOT) 16 U/L (15-37) Alanine Aminotransferase (ALT/SGPT) 19 U/L (12-78) Alkaline Phosphatase 105 U/L (46-116) C-Reactive Protein, Quantitative 6.3 mg/dL (0.00-0.90) H Total Protein 6.8 G/DL (6.4-8.2) Albumin 1.2 G/DL (3.4-5.0) L Globulin 5.6 g/dL Albumin/Globulin Ratio 0.2 (1.0-2.7) L Lipase 43 U/L (73-393) L Vancomycin Level Trough 7.7 ug/mL (5.0-12.0) Shani Moses MD Apr 22, 2018 10:33
[2018-04-22 12:00] VITALS: BP 114/70
[2018-04-22] MEDS ORDERED: Amikacin Rx to dose MISC PRN (12:30)
--- NOTE | 2018-04-22 12:31 | Internal Med Progress Note ---
Subjective Date of Service: Apr 22, 2018 Physician Name Aaron Solis Attending Physician Shani Moses MD Current Medications Medications (Trade) Dose Ordered Sig/Tameka Route PRN Reason Start Time Stop Time Status Last Admin Dose Admin Acetaminophen (Tylenol) 650 mg Q4H PRN ORAL FEVER 04/17/18 20:00 05/17/18 19:59 04/21/18 15:40 Albuterol/ Ipratropium (Albuterol/ Ipratropium) 3 ml EVERY 4 HOURS PRN HHN Shortness of Breath 04/17/18 20:00 04/22/18 19:59 Amiodarone HCl (Cordarone) 200 mg DAILY GT 04/18/18 09:00 05/18/18 08:59 04/22/18 09:11 Carvedilol (Coreg) 6.25 mg EVERY 12 HOURS ORAL 04/20/18 21:00 05/20/18 20:59 04/22/18 09:11 Colistimethate Sodium (Colistin *inhalation use only*) 150 mg Q12HR@10,22 INH 04/22/18 22:00 04/29/18 21:59 UNV Dextrose (Dextrose 50%) 25 ml STAT PRN IV BS 60-69mg/dl 04/17/18 20:15 05/17/18 20:14 Dextrose (Dextrose 50%) 50 ml STAT PRN IV BS less than 60mg/dl 04/17/18 20:00 05/17/18 19:59 Heparin Sodium (Porcine) (Heparin 5000 units/ml) 5,000 units EVERY 12 HOURS SUBQ 04/17/18 21:00 05/17/18 20:59 04/22/18 09:12 Iopamidol (Isovue-300 100ml) 100 ml NOW PRN INJ Radiology Procedure 04/17/18 14:45 Levetiracetam (Keppra) 500 mg Q12HR GT 04/17/18 21:00 05/17/18 20:59 04/22/18 09:11 Lorazepam (Ativan 2mg/ml 1ml) 2 mg EVERY 2 HOURS PRN IV For Anxiety 04/17/18 20:00 04/24/18 19:59 Meropenem 1 gm/ Sodium Chloride 55 ml @ 110 mls/hr Q8HR IVPB 04/20/18 14:00 04/25/18 13:59 04/22/18 05:40 Morphine Sulfate (Morphine Sulfate) 4 mg EVERY 4 HOURS PRN IVP Severe Pain (Pain Scale 7-10) 04/17/18 20:00 04/24/18 19:59 04/22/18 02:58 Ondansetron HCl (Zofran) 4 mg Q6H PRN IVP Nausea & Vomiting 04/17/18 20:00 05/17/18 19:59 Pantoprazole (Protonix) 40 mg DAILY IV 04/18/18 09:00 05/18/18 08:59 04/22/18 09:11 Polyethylene Glycol (Miralax) 17 gm DAILYPRN PRN ORAL Constipation 04/17/18 20:00 05/17/18 19:59 Trimethoprim/ Sulfamethoxazole 15 ml/Dextrose 565 ml @ 565 mls/hr EVERY 8 HOURS IV 04/21/18 22:00 04/28/18 13:59 04/22/18 06:15 Allergies: Coded Allergies: No Known Allergies (Unverified , 03/07/17) ROS Limited/Unobtainable: Yes Subjective 58 YO M with chronic respiratory failure and vent dependence admitted with respiratory distress. Now pneumonia and sepsis. Cover for Int Med-Dr Box. LIGIA Objective Last Vital Signs Date Time Temp Pulse Resp B/P (MAP) Pulse Ox O2 Delivery O2 Flow Rate FiO2 04/22/18 12:00 98.4 96 18 114/70 100 Mechanical Ventilator 35 98.4 Laboratory Tests Test 04/22/18 02:15 White Blood Count 13.1 K/UL (4.8-10.8) H Red Blood Count 3.18 M/UL (4.70-6.10) L Hemoglobin 8.7 G/DL (14.2-18.0) L Hematocrit 28.1 % (42.0-52.0) L Mean Corpuscular Volume 89 FL (80-99) Mean Corpuscular Hemoglobin 27.5 PG (27.0-31.0) Mean Corpuscular Hemoglobin Concent 31.0 G/DL (32.0-36.0) L Red Cell Distribution Width 14.8 % (11.6-14.8) Platelet Count 478 K/UL (150-450) H Mean Platelet Volume 6.3 FL (6.5-10.1) L Neutrophils (%) (Auto) 70.4 % (45.0-75.0) Lymphocytes (%) (Auto) 15.1 % (20.0-45.0) L Monocytes (%) (Auto) 7.7 % (1.0-10.0) Eosinophils (%) (Auto) 6.5 % (0.0-3.0) H Basophils (%) (Auto) 0.3 % (0.0-2.0) Erythrocyte Sedimentation Rate 124 MM/HR (0-20) H Sodium Level 144 MMOL/L (136-145) Potassium Level 3.8 MMOL/L (3.5-5.1) Chloride Level 112 MMOL/L (98-107) H Carbon Dioxide Level 24 MMOL/L (21-32) Anion Gap 8 mmol/L (5-15) Blood Urea Nitrogen 13 mg/dL (7-18) Creatinine 0.9 MG/DL (0.55-1.30) Estimat Glomerular Filtration Rate > 60 mL/min (>60) Glucose Level 94 MG/DL (74-106) Calcium Level 8.2 MG/DL (8.5-10.1) L Phosphorus Level 2.5 MG/DL (2.5-4.9) Magnesium Level 1.9 MG/DL (1.8-2.4) Total Bilirubin 0.2 MG/DL (0.2-1.0) Aspartate Amino Transf (AST/SGOT) 16 U/L (15-37) Alanine Aminotransferase (ALT/SGPT) 19 U/L (12-78) Alkaline Phosphatase 105 U/L (46-116) C-Reactive Protein, Quantitative 6.3 mg/dL (0.00-0.90) H Total Protein 6.8 G/DL (6.4-8.2) Albumin 1.2 G/DL (3.4-5.0) L Globulin 5.6 g/dL Albumin/Globulin Ratio 0.2 (1.0-2.7) L Lipase 43 U/L (73-393) L Vancomycin Level Trough 7.7 ug/mL (5.0-12.0) Microbiology Date/Time Source Procedure Growth Status 04/21/18 01:00 Urine,Clean Catch Urine Culture - Preliminary Gram Negative Bacillus 1 Resulted Intake and Output 04/21/18 04/22/18 19:00 07:00 Intake Total 1680 ml 1698 ml Output Total 300 ml 800 ml Balance 1380 ml 898 ml Intake Free Water 700 ml 200 ml IV Total 620 ml 1098 ml Tube Feeding 360 ml 300 ml Other 100 ml Output Urine Total 300 ml 800 ml Objective General Appearance: cachetic, lethargic, thin EENT: normal ENT inspection Neck: non-tender, stiff neck, other - tracheostomy present Cardiovascular: normal peripheral pulses, normal rate, regular rhythm, no gallop/murmur, no JVD Respiratory/Chest: crackles/rales, rhonchi - bilaterally, expiratory wheezing Abdomen: normal bowel sounds, non tender, soft, no organomegaly, no mass Extremities: other - contracted X 4 Skin: normal pigmentation, warm/dry; stage IV sacral decubitus ulcer Assessment/Plan Problem List: (1) Pneumonia Assessment & Plan: Stenotrophomonas Maltophilia and Gram neg jose luis. Await ID and sensitivity. See pulmonary and ID note. Continue zosyn and vanco (2) Seizure disorder Assessment & Plan: Continue Keppra (3) Hypertension Assessment & Plan: Continue coreg (4) Diabetes mellitus type II, uncontrolled (5) Sacral decubitus ulcer, stage IV Assessment & Plan: Possible chronic osteomyelitis-continue antibiotic per ID. See surgery consult (6) CHF (congestive heart failure) (7) Cardiomyopathy (8) Tracheostomy care (9) Cerebral vascular disease (10) Acute on chronic respiratory failure (11) Sepsis Assessment & Plan: await blood culture results. Continue zosyn and vanco (12) Leukocytosis (13) Anemia Assessment & Plan: S/P transfusion 2 units PRBC. (14) Atrial fibrillation Assessment & Plan: Continue amiodarone (15) Feeding by G-tube Status: not improved Aaron Solis MD Apr 22, 2018 12:31
--- NOTE | 2018-04-22 12:36 | Cardiology Progress Note ---
Assessment/Plan Assessment/Plan Continue coreg for cardiomyopathy - increased dose due to tachycardia - continue to titrate as tolerated Amiodarone for hx of VT ICD in place - no recent shocks Continue antibiotics for fever and elevated WBC Follow up blood and urine cultures CXR reviewed - clear no PNA/effusions Free water for hypernatremia Supprotive care Subjective Cardiovascular: Reports: no symptoms Respiratory: Reports: no symptoms Gastrointestinal/Abdominal: Reports: no symptoms Genitourinary: Reports: no symptoms Subjective no acute events, vitals stable, slept well, on vent Objective Last 24 Hour Vital Signs Date Time Temp Pulse Resp B/P (MAP) Pulse Ox O2 Delivery O2 Flow Rate FiO2 04/22/18 12:00 98.4 96 18 114/70 100 Mechanical Ventilator 35 98.4 04/22/18 12:00 35 04/22/18 11:15 91 16 35 04/22/18 09:17 98 19 35 04/22/18 09:11 98 109/69 04/22/18 08:45 98.4 98 18 109/69 100 Mechanical Ventilator 35 98.4 04/22/18 08:00 94 04/22/18 08:00 35 04/22/18 07:03 95 18 35 04/22/18 04:59 91 18 35 04/22/18 04:00 97.9 98 18 119/71 96 Mechanical Ventilator 35 97.9 04/22/18 04:00 35 04/22/18 03:46 89 04/22/18 03:15 90 17 35 04/22/18 01:43 95 18 35 04/22/18 00:00 96.8 100 22 125/77 97 Mechanical Ventilator 35 96.8 04/22/18 00:00 35 04/21/18 23:46 91 04/21/18 23:20 93 16 35 04/21/18 21:20 102 127/73 04/21/18 20:31 102 17 35 04/21/18 20:00 96.4 106 20 127/73 100 Mechanical Ventilator 35 96.4 04/21/18 20:00 35 04/21/18 19:27 105 16 35 04/21/18 19:25 102 04/21/18 16:52 100 17 35 04/21/18 16:39 99.5 04/21/18 16:30 99.8 99.8 04/21/18 16:11 99.5 6/5/18 16:00 101.2 107 18 115/66 100 Mechanical Ventilator 35 101.2 04/21/18 16:00 35 04/21/18 16:00 107 04/21/18 15:40 101.6 04/21/18 14:58 104 19 35 04/21/18 13:22 100 17 35 EENT: PERRL/EOMI Neck: non-tender Rhythm: NSR Cardiovascular: normal peripheral pulses Respiratory/Chest: chest wall non-tender Abdomen: normal bowel sounds, non tender Extremities: normal range of motion 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, no motor/sensory deficits Intake and Output 04/21/18 04/22/18 19:00 07:00 Intake Total 1680 ml 1698 ml Output Total 300 ml 800 ml Balance 1380 ml 898 ml Intake Free Water 700 ml 200 ml IV Total 620 ml 1098 ml Tube Feeding 360 ml 300 ml Other 100 ml Output Urine Total 300 ml 800 ml Laboratory Tests Test 04/22/18 02:15 White Blood Count 13.1 K/UL (4.8-10.8) H Red Blood Count 3.18 M/UL (4.70-6.10) L Hemoglobin 8.7 G/DL (14.2-18.0) L Hematocrit 28.1 % (42.0-52.0) L Mean Corpuscular Volume 89 FL (80-99) Mean Corpuscular Hemoglobin 27.5 PG (27.0-31.0) Mean Corpuscular Hemoglobin Concent 31.0 G/DL (32.0-36.0) L Red Cell Distribution Width 14.8 % (11.6-14.8) Platelet Count 478 K/UL (150-450) H Mean Platelet Volume 6.3 FL (6.5-10.1) L Neutrophils (%) (Auto) 70.4 % (45.0-75.0) Lymphocytes (%) (Auto) 15.1 % (20.0-45.0) L Monocytes (%) (Auto) 7.7 % (1.0-10.0) Eosinophils (%) (Auto) 6.5 % (0.0-3.0) H Basophils (%) (Auto) 0.3 % (0.0-2.0) Erythrocyte Sedimentation Rate 124 MM/HR (0-20) H Sodium Level 144 MMOL/L (136-145) Potassium Level 3.8 MMOL/L (3.5-5.1) Chloride Level 112 MMOL/L (98-107) H Carbon Dioxide Level 24 MMOL/L (21-32) Anion Gap 8 mmol/L (5-15) Blood Urea Nitrogen 13 mg/dL (7-18) Creatinine 0.9 MG/DL (0.55-1.30) Estimat Glomerular Filtration Rate > 60 mL/min (>60) Glucose Level 94 MG/DL (74-106) Calcium Level 8.2 MG/DL (8.5-10.1) L Phosphorus Level 2.5 MG/DL (2.5-4.9) Magnesium Level 1.9 MG/DL (1.8-2.4) Total Bilirubin 0.2 MG/DL (0.2-1.0) Aspartate Amino Transf (AST/SGOT) 16 U/L (15-37) Alanine Aminotransferase (ALT/SGPT) 19 U/L (12-78) Alkaline Phosphatase 105 U/L (46-116) C-Reactive Protein, Quantitative 6.3 mg/dL (0.00-0.90) H Total Protein 6.8 G/DL (6.4-8.2) Albumin 1.2 G/DL (3.4-5.0) L Globulin 5.6 g/dL Albumin/Globulin Ratio 0.2 (1.0-2.7) L Lipase 43 U/L (73-393) L Vancomycin Level Trough 7.7 ug/mL (5.0-12.0) Microbiology Date/Time Source Procedure Growth Status 04/21/18 01:00 Urine,Clean Catch Urine Culture - Preliminary Gram Negative Bacillus 1 Resulted Fausto Berg M.D. Apr 22, 2018 12:36
--- NOTE | 2018-04-22 12:39 | Infectious Diseases Prog Note ---
Assessment/Plan Assessment/Plan Assessment: SEpsis, improving- 2ry to HCAP -CXR /: Questionable increased parenchymal infiltrates in the right suprahilar region and left infrahilar region, over 3 days. -CXR: no acute disease -CT abd/p: Left posterior basal pneumonia suspected. Correlate clinically. Grade 4 sacral decubitus ulcer with exposed sacrum/coccyx. Correlate clinically. Severe hip contraction deformity and heterotopic ossification about both hips. Bilateral nonobstructive stones within the kidneys. Gastrostomy. Considerable artifact limiting evaluation of the upper abdomen. Liquefied stool in the colon. Correlate for diarrhea and enteritis. -u/a no pyuria; ucx 30-40 K GNR (likely colonizer) -Bcx NTD -sp cx S. maltophilia (S bactrim, levaquin), MDR PsA (S Amikacin, Genta) -Cdiff neg -lipase 43 Fever,/leukocytosis, improving Multiple lower extremity decubitus (including stage IV sacral decubitus) w/ likely chronic OM- no signs of active infection -04/17 wound cx L trochanter: ESBL P. stuartti (colonizer) 02/2018 WndC x: MDR Providencia (+ skin colonizer ) Bone scan limited for eval of osteomyelitis. ( due to contracted Ext. ) -s/p 2 weeks of treatment 02/2018 -L hip necrotic/unstagelable decubitus ulcer SP Debridement 11/29 ; Wnd Cx : ACB and Kleb and Strp GrG , MRSA Hx of MSSA bacteremia 11/2017 2ry to infected sacral wound ( SP 4 wks AB rx ) Hx of Pseudomonas urinary tract infection. hx of SCx: MDR-PSA ( colonizer ) Ch transaminitis /cirrhosis Hep C Ab + VDRF Status post trach and percutaneous endoscopic gastrostomy. Dementia Seizure disorder. History of pacemaker placement/AICD -hx of Vtach. Hypertension. COPD. Diabetes. Afib Cardiomyopathy Rheumatic tricuspid valve disease FTT GERD CVA/TIA [facility] resident NKDA FUll code Plan: -Continue Meropenem #3 and add IV Amikacin and INH Colistin for MDR PSA -monitor Creatinine on amikacin and bactrim combination -Continue IV Bactrim 5mg/kg q8hr #2 for S.maltophilia PNA -upon discharge can be transitioned to PO Levaquin -6/ SP IV Vanco and Zosyn #4 -18 SP Meropenem #14 -/ SP IV Vanco #7 -4/6 SP vancomycin and Zosyn d#3 -2/7 SP IV Vancomycin # -12/16 SP Meropenem #14 -11/22/17 SP IV Zosyn d# 3 -f/u cx -Monitor CBC/BMP, temperatures -wound care per hospital protocol -Sx f/u -trach/peg care -aspiration precautions -CXR am Thank you for this consultation. Will continue to follow along with you. Discussed with RN. Subjective Allergies: Coded Allergies: No Known Allergies (Unverified , 03/07/17) Subjective afebrile in ~24hrs WBC 13 BCx NTD sp cx MDR PsA Objective Vital Signs Last 24 Hour Vital Signs Date Time Temp Pulse Resp B/P (MAP) Pulse Ox O2 Delivery O2 Flow Rate FiO2 04/22/18 12:00 98.4 96 18 114/70 100 Mechanical Ventilator 35 98.4 04/22/18 12:00 35 04/22/18 11:15 91 16 35 04/22/18 09:17 98 19 35 04/22/18 09:11 98 109/69 04/22/18 08:45 98.4 98 18 109/69 100 Mechanical Ventilator 35 98.4 04/22/18 08:00 94 04/22/18 08:00 35 04/22/18 07:03 95 18 35 04/22/18 04:59 91 18 35 04/22/18 04:00 97.9 98 18 119/71 96 Mechanical Ventilator 35 97.9 04/22/18 04:00 35 04/22/18 03:46 89 04/22/18 03:15 90 17 35 04/22/18 01:43 95 18 35 04/22/18 00:00 96.8 100 22 125/77 97 Mechanical Ventilator 35 96.8 04/22/18 00:00 35 04/21/18 23:46 91 04/21/18 23:20 93 16 35 04/21/18 21:20 102 127/73 04/21/18 20:31 102 17 35 04/21/18 20:00 96.4 106 20 127/73 100 Mechanical Ventilator 35 96.4 04/21/18 20:00 35 04/21/18 19:27 105 16 35 04/21/18 19:25 102 04/21/18 16:52 100 17 35 04/21/18 16:39 99.5 04/21/18 16:30 99.8 99.8 04/21/18 16:11 99.5 04/21/18 16:00 101.2 107 18 115/66 100 Mechanical Ventilator 35 101.2 04/21/18 16:00 35 04/21/18 16:00 107 04/21/18 15:40 101.6 04/21/18 14:58 104 19 35 04/21/18 13:22 100 17 35 Height (Feet): 5 Height (Inches): 8.00 Weight (Pounds): 129 Objective GENERAL: The patient is a thin-appearing cachectic male, who is lethargic. HEENT: Pupils are equal and responsive to light and accommodation. NECK: Supple without lymphadenopathy. There is presence of tracheostomy noted. CHEST: Decreased breath sounds bilaterally with expiratory wheezes. Otherwise, clear to auscultation without wheezes or rales. CARDIOVASCULAR: Tachycardic, regular rhythm. S1 and S2 are normal without murmurs, rubs, or gallops. ABDOMEN: Soft and nondistended with positive bowel sounds. No evidence of hepatosplenomegaly. Currently, no rebound or guarding noted. EXTREMITIES: Multiple contractures noted. INTEGUMENT: Presence of a stage IV sacral decubitus. Microbiology Date/Time Source Procedure Growth Status 04/21/18 01:00 Urine,Clean Catch Urine Culture - Preliminary Gram Negative Bacillus 1 Resulted Laboratory Tests Test 04/22/18 02:15 White Blood Count 13.1 K/UL (4.8-10.8) H Red Blood Count 3.18 M/UL (4.70-6.10) L Hemoglobin 8.7 G/DL (14.2-18.0) L Hematocrit 28.1 % (42.0-52.0) L Mean Corpuscular Volume 89 FL (80-99) Mean Corpuscular Hemoglobin 27.5 PG (27.0-31.0) Mean Corpuscular Hemoglobin Concent 31.0 G/DL (32.0-36.0) L Red Cell Distribution Width 14.8 % (11.6-14.8) Platelet Count 478 K/UL (150-450) H Mean Platelet Volume 6.3 FL (6.5-10.1) L Neutrophils (%) (Auto) 70.4 % (45.0-75.0) Lymphocytes (%) (Auto) 15.1 % (20.0-45.0) L Monocytes (%) (Auto) 7.7 % (1.0-10.0) Eosinophils (%) (Auto) 6.5 % (0.0-3.0) H Basophils (%) (Auto) 0.3 % (0.0-2.0) Erythrocyte Sedimentation Rate 124 MM/HR (0-20) H Sodium Level 144 MMOL/L (136-145) Potassium Level 3.8 MMOL/L (3.5-5.1) Chloride Level 112 MMOL/L (98-107) H Carbon Dioxide Level 24 MMOL/L (21-32) Anion Gap 8 mmol/L (5-15) Blood Urea Nitrogen 13 mg/dL (7-18) Creatinine 0.9 MG/DL (0.55-1.30) Estimat Glomerular Filtration Rate > 60 mL/min (>60) Glucose Level 94 MG/DL (74-106) Calcium Level 8.2 MG/DL (8.5-10.1) L Phosphorus Level 2.5 MG/DL (2.5-4.9) Magnesium Level 1.9 MG/DL (1.8-2.4) Total Bilirubin 0.2 MG/DL (0.2-1.0) Aspartate Amino Transf (AST/SGOT) 16 U/L (15-37) Alanine Aminotransferase (ALT/SGPT) 19 U/L (12-78) Alkaline Phosphatase 105 U/L (46-116) C-Reactive Protein, Quantitative 6.3 mg/dL (0.00-0.90) H Total Protein 6.8 G/DL (6.4-8.2) Albumin 1.2 G/DL (3.4-5.0) L Globulin 5.6 g/dL Albumin/Globulin Ratio 0.2 (1.0-2.7) L Lipase 43 U/L (73-393) L Vancomycin Level Trough 7.7 ug/mL (5.0-12.0) Current Medications Medications (Trade) Dose Ordered Sig/Tameka Route PRN Reason Start Time Stop Time Status Last Admin Dose Admin Acetaminophen (Tylenol) 650 mg Q4H PRN ORAL FEVER 04/17/18 20:00 05/17/18 19:59 04/21/18 15:40 Albuterol/ Ipratropium (Albuterol/ Ipratropium) 3 ml EVERY 4 HOURS PRN HHN Shortness of Breath 04/17/18 20:00 04/22/18 19:59 Amiodarone HCl (Cordarone) 200 mg DAILY GT 04/18/18 09:00 05/18/18 08:59 04/22/18 09:11 Carvedilol (Coreg) 6.25 mg EVERY 12 HOURS ORAL 04/20/18 21:00 05/20/18 20:59 04/22/18 09:11 Dextrose (Dextrose 50%) 25 ml STAT PRN IV BS 60-69mg/dl 04/17/18 20:15 05/17/18 20:14 Dextrose (Dextrose 50%) 50 ml STAT PRN IV BS less than 60mg/dl 04/17/18 20:00 05/17/18 19:59 Heparin Sodium (Porcine) (Heparin 5000 units/ml) 5,000 units EVERY 12 HOURS SUBQ 04/17/18 21:00 05/17/18 20:59 04/22/18 09:12 Iopamidol (Isovue-300 100ml) 100 ml NOW PRN INJ Radiology Procedure 04/17/18 14:45 Levetiracetam (Keppra) 500 mg Q12HR GT 04/17/18 21:00 05/17/18 20:59 04/22/18 09:11 Lorazepam (Ativan 2mg/ml 1ml) 2 mg EVERY 2 HOURS PRN IV For Anxiety 04/17/18 20:00 04/24/18 19:59 Meropenem 1 gm/ Sodium Chloride 55 ml @ 110 mls/hr Q8HR IVPB 04/20/18 14:00 04/25/18 13:59 04/22/18 05:40 Morphine Sulfate (Morphine Sulfate) 4 mg EVERY 4 HOURS PRN IVP Severe Pain (Pain Scale 7-10) 04/17/18 20:00 04/24/18 19:59 04/22/18 02:58 Ondansetron HCl (Zofran) 4 mg Q6H PRN IVP Nausea & Vomiting 04/17/18 20:00 05/17/18 19:59 Pantoprazole (Protonix) 40 mg DAILY IV 04/18/18 09:00 05/18/18 08:59 04/22/18 09:11 Polyethylene Glycol (Miralax) 17 gm DAILYPRN PRN ORAL Constipation 04/17/18 20:00 05/17/18 19:59 Trimethoprim/ Sulfamethoxazole 15 ml/Dextrose 565 ml @ 565 mls/hr EVERY 8 HOURS IV 04/21/18 22:00 04/28/18 13:59 04/22/18 06:15 aRdha Saini M.D. Apr 22, 2018 12:39
--- NOTE | 2018-04-22 12:40 | General Progress Note ---
Assessment/Plan Status: stable Assessment/Plan ASSESSMENT AND RECOMMENDATION: 1. Anemia due to underlying chronic disease. Continue to closely monitor for improvement. Anemia workup has been reviewed. B12 of 1458. Homocysteine less than 3. CEA of 9.2. --> workup has been reviewed, no evidence for hemolysis --> tumor markers have been reviewed as well --> hgb goal >7 2. Elevated CEA, has had an endoscopy before and current CEA has been improving. It has been stable, though remains elevated at this time at 9.3. Continue to closely monitor with GI Service. --> [facility], they are following 3. Coagulopathy potentially secondary to hepatitis C, which was positive on . Consider to obtain new value and ID Service to follow. 4. Pneumonia, being treated with antibiotics, broad-spectrum. 5. Ventilator-dependent respiratory failure. 6. Stage IV decubitus ulceration. No signs of active infection. Clear margins. 7. Leukocytosis, currently improved on antibiotics. Subjective Date patient seen: Apr 23, 2018 Constitutional: Denies: no symptoms, chills, diaphoresis, fever, malaise, weakness, other HEENT: Denies: no symptoms, eye pain, blurred vision, tearing, double vision, ear pain, ear discharge, nose pain, nose congestion, throat pain, throat swelling, mouth pain, mouth swelling, other Cardiovascular: Denies: no symptoms, chest pain, edema, irregular heart rate, lightheadedness, palpitations, syncope, other Respiratory: Denies: no symptoms, cough, orthopnea, shortness of breath, SOB with excertion, SOB at rest, sputum, stridor, wheezing, other Gastrointestinal/Abdominal: Denies: no symptoms, abdomen distended, abdominal pain, black stools, tarry stools, blood in stool, constipated, diarrhea, difficulty swallowing, nausea, poor appetite, poor fluid intake, rectal bleeding , vomiting, other 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: Denies: no symptoms, anxiety, depressed, emotional problems, headache, numbness, paresthesia, pre-existing deficit, seizure, tingling, tremors, weakness, other Endocrine: Denies: no symptoms, excessive sweating, flushing, intolerance to cold, intolerance to heat, increased hunger, increased thirst, increased urine, unexplained weight gain, unexplained weight loss, other Hematologic/Lymphatic: Denies: no symptoms, anemia, easy bleeding, easy bruising, other Allergies: Coded Allergies: No Known Allergies (Unverified , 03/07/17) All Systems: reviewed and negative except above Subjective no events, in bed is comfortable Objective Last 24 Hour Vital Signs Date Time Temp Pulse Resp B/P (MAP) Pulse Ox O2 Delivery O2 Flow Rate FiO2 04/22/18 12:00 98.4 96 18 114/70 100 Mechanical Ventilator 35 98.4 04/22/18 12:00 35 04/22/18 11:15 91 16 35 04/22/18 09:17 98 19 35 04/22/18 09:11 98 109/69 04/22/18 08:45 98.4 98 18 109/69 100 Mechanical Ventilator 35 98.4 04/22/18 08:00 94 04/22/18 08:00 35 04/22/18 07:03 95 18 35 04/22/18 04:59 91 18 35 04/22/18 04:00 97.9 98 18 119/71 96 Mechanical Ventilator 35 97.9 04/22/18 04:00 35 04/22/18 03:46 89 04/22/18 03:15 90 17 35 04/22/18 01:43 95 18 35 04/22/18 00:00 96.8 100 22 125/77 97 Mechanical Ventilator 35 96.8 04/22/18 00:00 35 04/21/18 23:46 91 04/21/18 23:20 93 16 35 04/21/18 21:20 102 127/73 04/21/18 20:31 102 17 35 04/21/18 20:00 96.4 106 20 127/73 100 Mechanical Ventilator 35 96.4 04/21/18 20:00 35 04/21/18 19:27 105 16 35 04/21/18 19:25 102 04/21/18 16:52 100 17 35 04/21/18 16:39 99.5 04/21/18 16:30 99.8 99.8 04/21/18 16:11 99.5 04/21/18 16:00 101.2 107 18 115/66 100 Mechanical Ventilator 35 101.2 04/21/18 16:00 35 04/21/18 16:00 107 04/21/18 15:40 101.6 6/5/18 14:58 104 19 35 04/21/18 13:22 100 17 35 Intake and Output 04/21/18 04/22/18 19:00 07:00 Intake Total 1680 ml 1698 ml Output Total 300 ml 800 ml Balance 1380 ml 898 ml Intake Free Water 700 ml 200 ml IV Total 620 ml 1098 ml Tube Feeding 360 ml 300 ml Other 100 ml Output Urine Total 300 ml 800 ml Laboratory Tests 04/22/18 02:15: White Blood Count 13.1H, Red Blood Count 3.18L, Hemoglobin 8.7L, Hematocrit 28.1L, Mean Corpuscular Volume 89, Mean Corpuscular Hemoglobin 27.5, Mean Corpuscular Hemoglobin Concent 31.0L, Red Cell Distribution Width 14.8, Platelet Count 478H, Mean Platelet Volume 6.3L, Neutrophils (%) (Auto) 70.4, Lymphocytes (%) (Auto) 15.1L, Monocytes (%) (Auto) 7.7, Eosinophils (%) (Auto) 6.5H, Basophils (%) (Auto) 0.3, Erythrocyte Sedimentation Rate 124H, Sodium Level 144, Potassium Level 3.8, Chloride Level 112H, Carbon Dioxide Level 24, Anion Gap 8, Blood Urea Nitrogen 13, Creatinine 0.9, Estimat Glomerular Filtration Rate > 60, Glucose Level 94, Calcium Level 8.2L, Phosphorus Level 2.5 , Magnesium Level 1.9, Total Bilirubin 0.2, Aspartate Amino Transf (AST/SGOT) 16 , Alanine Aminotransferase (ALT/SGPT) 19, Alkaline Phosphatase 105, C-Reactive Protein, Quantitative 6.3H, Total Protein 6.8, Albumin 1.2L, Globulin 5.6, Albumin/Globulin Ratio 0.2L, Lipase 43L, Vancomycin Level Trough 7.7 Height (Feet): 5 Height (Inches): 8.00 Weight (Pounds): 129 General Appearance: no apparent distress EENT: PERRL/EOMI Neck: normal alignment Cardiovascular: normal peripheral pulses Respiratory/Chest: normal breath sounds Abdomen: normal bowel sounds Extremities: non-tender Edema: 1+ Leg (L), 1+ Leg (R) Edema: mild edema Neurologic: alert Venancio James MD Apr 22, 2018 12:40
--- NOTE | 2018-04-22 13:37 | General Progress Note ---
Assessment/Plan Assessment/Plan ASSESSMENT AND RECOMMENDATION: 1. Anemia due to underlying chronic disease. Continue to closely monitor for improvement. Anemia workup has been reviewed. B12 of 1458. Homocysteine less than 3. CEA of 9.2. --> workup has been reviewed, no evidence for hemolysis --> tumor markers have been reviewed as well --> hgb goal >7 2. Elevated CEA, has had an endoscopy before and current CEA has been improving. It has been stable, though remains elevated at this time at 9.3. Continue to closely monitor with GI Service. --> [facility] recs 3. Coagulopathy potentially secondary to hepatitis C, which was positive on . Consider to obtain new value and ID Service to follow. 4. Pneumonia, being treated with antibiotics, broad-spectrum. 5. Ventilator-dependent respiratory failure. 6. Stage IV decubitus ulceration. No signs of active infection. Clear margins. 7. Leukocytosis, currently improved on antibiotics. Subjective Constitutional: Denies: no symptoms, chills, diaphoresis, fever, malaise, weakness, other HEENT: Denies: no symptoms, eye pain, blurred vision, tearing, double vision, ear pain, ear discharge, nose pain, nose congestion, throat pain, throat swelling, mouth pain, mouth swelling, other Cardiovascular: Denies: no symptoms, chest pain, edema, irregular heart rate, lightheadedness, palpitations, syncope, other Respiratory: Denies: no symptoms, cough, orthopnea, shortness of breath, SOB with excertion, SOB at rest, sputum, stridor, wheezing, other Genitourinary: Denies: no symptoms, burning, discharge, frequency, flank pain, hematuria, incontinence, pain, urgency, other 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: Denies: no symptoms, anxiety, depressed, emotional problems, headache, numbness, paresthesia, pre-existing deficit, seizure, tingling, tremors, weakness, other Endocrine: Denies: no symptoms, excessive sweating, flushing, intolerance to cold, intolerance to heat, increased hunger, increased thirst, increased urine, unexplained weight gain, unexplained weight loss, other Hematologic/Lymphatic: Denies: no symptoms, anemia, easy bleeding, easy bruising, other Allergies: Coded Allergies: No Known Allergies (Unverified , 03/07/17) Subjective no events, no f/c, no ns Objective Last 24 Hour Vital Signs Date Time Temp Pulse Resp B/P (MAP) Pulse Ox O2 Delivery O2 Flow Rate FiO2 04/22/18 13:01 98 18 35 04/22/18 12:00 98.4 96 18 114/70 100 Mechanical Ventilator 35 98.4 04/22/18 12:00 35 04/22/18 11:56 101 04/22/18 11:15 91 16 35 04/22/18 09:17 98 19 35 04/22/18 09:11 98 109/69 04/22/18 08:45 98.4 98 18 109/69 100 Mechanical Ventilator 35 98.4 04/22/18 08:00 94 04/22/18 08:00 35 04/22/18 07:03 95 18 35 04/22/18 04:59 91 18 35 04/22/18 04:00 97.9 98 18 119/71 96 Mechanical Ventilator 35 97.9 04/22/18 04:00 35 04/22/18 03:46 89 04/22/18 03:15 90 17 35 04/22/18 01:43 95 18 35 04/22/18 00:00 96.8 100 22 125/77 97 Mechanical Ventilator 35 96.8 04/22/18 00:00 35 04/21/18 23:46 91 04/21/18 23:20 93 16 35 04/21/18 21:20 102 127/73 04/21/18 20:31 102 17 35 04/21/18 20:00 96.4 106 20 127/73 100 Mechanical Ventilator 35 96.4 04/21/18 20:00 35 04/21/18 19:27 105 16 35 04/21/18 19:25 102 04/21/18 16:52 100 17 35 04/21/18 16:39 99.5 04/21/18 16:30 99.8 99.8 04/21/18 16:11 99.5 04/21/18 16:00 101.2 107 18 115/66 100 Mechanical Ventilator 35 101.2 04/21/18 16:00 35 04/21/18 16:00 107 04/21/18 15:40 101.6 04/21/18 14:58 104 19 35 Intake and Output 04/21/18 04/22/18 19:00 07:00 Intake Total 1680 ml 1698 ml Output Total 300 ml 800 ml Balance 1380 ml 898 ml Intake Free Water 700 ml 200 ml IV Total 620 ml 1098 ml Tube Feeding 360 ml 300 ml Other 100 ml Output Urine Total 300 ml 800 ml Laboratory Tests 04/22/18 02:15: White Blood Count 13.1H, Red Blood Count 3.18L, Hemoglobin 8.7L, Hematocrit 28.1L, Mean Corpuscular Volume 89, Mean Corpuscular Hemoglobin 27.5, Mean Corpuscular Hemoglobin Concent 31.0L, Red Cell Distribution Width 14.8, Platelet Count 478H, Mean Platelet Volume 6.3L, Neutrophils (%) (Auto) 70.4, Lymphocytes (%) (Auto) 15.1L, Monocytes (%) (Auto) 7.7, Eosinophils (%) (Auto) 6.5H, Basophils (%) (Auto) 0.3, Erythrocyte Sedimentation Rate 124H, Sodium Level 144, Potassium Level 3.8, Chloride Level 112H, Carbon Dioxide Level 24, Anion Gap 8, Blood Urea Nitrogen 13, Creatinine 0.9, Estimat Glomerular Filtration Rate > 60, Glucose Level 94, Calcium Level 8.2L, Phosphorus Level 2.5 , Magnesium Level 1.9, Total Bilirubin 0.2, Aspartate Amino Transf (AST/SGOT) 16 , Alanine Aminotransferase (ALT/SGPT) 19, Alkaline Phosphatase 105, C-Reactive Protein, Quantitative 6.3H, Total Protein 6.8, Albumin 1.2L, Globulin 5.6, Albumin/Globulin Ratio 0.2L, Lipase 43L, Vancomycin Level Trough 7.7 Height (Feet): 5 Height (Inches): 8.00 Weight (Pounds): 129 General Appearance: no apparent distress EENT: normal ENT inspection Neck: supple Cardiovascular: normal rate Respiratory/Chest: lungs clear Abdomen: soft Extremities: non-tender Edema: 1+ Leg (L), 1+ Leg (R) Edema: mild edema Neurologic: alert Skin: warm/dry Venancio James MD Apr 22, 2018 13:37
[2018-04-22] MEDS ORDERED: Amikacin 1,000 MG in NS 110 ML IV SCH (15:00)
[2018-04-22] MEDS ORDERED: Tubing IV Secondary IV ONE (15:39)
[2018-04-22] MEDS ORDERED: NS 500ML ONE (15:39)
[2018-04-22 16:00] VITALS: BP 104/68
[2018-04-22 20:00] VITALS: BP 103/60
[2018-04-22] MEDS: Colistin for inhalation INH SCH (22:00)
[2018-04-23] VITALS: BP 107/60
[2018-04-23] MEDS: Morphine Sulfate 4mg/ml Inj IVP PRN (00:52)
[2018-04-23 03:56] LABS: ANION GAP 7 mmol/L (5-15); BLOOD UREA NITROGEN 12 mg/dL (7-18); CALCIUM 8.4 MG/DL (8.5-10.1); CARBON DIOXIDE 24 MMOL/L (21-32); CHLORIDE 105 MMOL/L (98-107); POTASSIUM 3.8 MMOL/L (3.5-5.1); SODIUM 136 MMOL/L (136-145)
[2018-04-23 04:00] VITALS: BP 124/76
[2018-04-23] MEDS: Meropenem 1 GM in NS 55 ML IVPB SCH ×2 (05:46→14:45)
[2018-04-23 08:00] VITALS: BP 119/76
--- NOTE | 2018-04-23 08:09 | Nephrology Progress Note ---
Assessment/Plan Assessment/Plan 1. Hypernatremia- Resolved. DC free water in GTube. 2. Nosocomial PNA- on Abx, defer to ID and Pulm. Much Improved 3. Hypokalemia - Corrected. Stable. replace prn 4. Dehydration- resolved Subjective Date patient seen: Apr 23, 2018 Time patient seen: 08:08 ROS Limited/Unobtainable: Yes Allergies: Coded Allergies: No Known Allergies (Unverified , 03/07/17) Subjective Patient trached on the vent and stable Objective Last 24 Hour Vital Signs Date Time Temp Pulse Resp B/P (MAP) Pulse Ox O2 Delivery O2 Flow Rate FiO2 04/23/18 08:00 35 04/23/18 07:05 100 18 35 04/23/18 05:22 95 20 35 04/23/18 04:00 98.5 104 19 124/76 100 Mechanical Ventilator 35 98.5 04/23/18 04:00 35 04/23/18 03:31 100 04/23/18 03:18 111 20 35 04/23/18 00:55 112 21 35 04/23/18 00:00 105 04/23/18 00:00 98.4 104 26 107/60 100 Mechanical Ventilator 35 98.4 04/22/18 22:58 101 20 35 04/22/18 21:45 112 103/60 04/22/18 20:58 112 20 35 04/22/18 20:00 35 04/22/18 20:00 98.5 109 20 103/60 97 Mechanical Ventilator 35 98.5 04/22/18 19:05 99 04/22/18 19:01 102 22 35 04/22/18 17:15 99 16 35 04/22/18 16:10 101 16 35 04/22/18 16:00 98.2 100 20 104/68 100 Mechanical Ventilator 35 98.2 04/22/18 16:00 35 04/22/18 15:17 101 04/22/18 13:01 98 18 35 04/22/18 12:00 98.4 96 18 114/70 100 Mechanical Ventilator 35 98.4 04/22/18 12:00 35 04/22/18 11:56 101 04/22/18 11:15 91 16 35 04/22/18 09:17 98 19 35 04/22/18 09:11 98 109/69 04/22/18 08:45 98.4 98 18 109/69 100 Mechanical Ventilator 35 98.4 Intake and Output 04/22/18 04/23/18 19:00 07:00 Intake Total 1977 ml 1180 ml Output Total 700 ml 400 ml Balance 1277 ml 780 ml Intake Free Water 400 ml 100 ml IV Total 1157 ml 620 ml Tube Feeding 360 ml 360 ml Other 60 ml 100 ml Output Urine Total 700 ml 400 ml Laboratory Tests 04/23/18 03:10: Sodium Level 136, Potassium Level 3.8, Chloride Level 105, Carbon Dioxide Level 24, Anion Gap 7, Blood Urea Nitrogen 12, Creatinine 1.0, Estimat Glomerular Filtration Rate > 60, Glucose Level 92, Calcium Level 8.4L, Random Amikacin Level [Pending] Height (Feet): 5 Height (Inches): 8.00 Weight (Pounds): 130 General Appearance: no apparent distress, alert EENT: normal ENT inspection Neck: normal alignment, supple Cardiovascular: normal rate, regular rhythm Respiratory/Chest: lungs clear Abdomen: non tender, soft Edema: no edema noted Arm (L), no edema noted Arm (R), no edema noted Leg (L), no edema noted Leg (R), no edema noted Pedal (L), no edema noted Pedal (R), no edema noted Generalized Alexandro High M.D. Apr 23, 2018 08:09
[2018-04-23] MEDS: Colistin for inhalation INH SCH (09:10)
[2018-04-23] MEDS: levETIRAcetam 500mg/5ml Liquid GT SCH (09:16)
[2018-04-23] MEDS: Pantoprazole Inj IV SCH (09:16)
[2018-04-23] MEDS: Trimethoprim/Sulfamethoxazole 15 ML in D5W 500ml 550 ML IV SCH ×3 (09:16→17:16)
[2018-04-23] MEDS: Heparin 5000 units/ml inj SUBQ SCH (09:17)
[2018-04-23] MEDS: Carvedilol 6.25mg Tab ORAL SCH (09:18)
[2018-04-23] MEDS: Amiodarone 200mg tab GT SCH (09:18)
--- NOTE | 2018-04-23 10:29 | Cardiology Progress Note ---
Assessment/Plan Assessment/Plan Continue coreg for cardiomyopathy - increased dose due to tachycardia - continue to titrate as tolerated Amiodarone for hx of VT ICD in place - no recent shocks Continue antibiotics for fever and elevated WBC Follow up blood and urine cultures CXR reviewed - clear no PNA/effusions Continue antibiotics per ID Supprotive care Improving Subjective Cardiovascular: Reports: no symptoms Respiratory: Reports: no symptoms Gastrointestinal/Abdominal: Reports: no symptoms Genitourinary: Reports: no symptoms Subjective no acute events, vitals stable, stable, on vent, no distress Objective Last 24 Hour Vital Signs Date Time Temp Pulse Resp B/P (MAP) Pulse Ox O2 Delivery O2 Flow Rate FiO2 04/23/18 09:23 96 17 100 Mechanical Ventilator 35 04/23/18 09:18 96 119/76 04/23/18 09:11 96 16 35 04/23/18 09:10 96 17 100 Mechanical Ventilator 35 04/23/18 08:00 35 04/23/18 08:00 98.2 93 19 119/76 100 98.2 04/23/18 07:05 100 18 35 04/23/18 05:22 95 20 35 04/23/18 04:00 98.5 104 19 124/76 100 Mechanical Ventilator 35 98.5 04/23/18 04:00 35 04/23/18 03:31 100 04/23/18 03:18 111 20 35 04/23/18 00:55 112 21 35 04/23/18 00:00 105 04/23/18 00:00 98.4 104 26 107/60 100 Mechanical Ventilator 35 98.4 04/22/18 22:58 101 20 35 04/22/18 21:45 112 103/60 04/22/18 20:58 112 20 35 04/22/18 20:00 35 04/22/18 20:00 98.5 109 20 103/60 97 Mechanical Ventilator 35 98.5 04/22/18 19:05 99 04/22/18 19:01 102 22 35 04/22/18 17:15 99 16 35 04/22/18 16:10 101 16 35 04/22/18 16:00 98.2 100 20 104/68 100 Mechanical Ventilator 35 98.2 04/22/18 16:00 35 04/22/18 15:17 101 04/22/18 13:01 98 18 35 04/22/18 12:00 98.4 96 18 114/70 100 Mechanical Ventilator 35 98.4 04/22/18 12:00 35 04/22/18 11:56 101 04/22/18 11:15 91 16 35 General Appearance: no apparent distress EENT: PERRL/EOMI Neck: non-tender Rhythm: NSR Cardiovascular: normal peripheral pulses Respiratory/Chest: chest wall non-tender Abdomen: normal bowel sounds Extremities: normal range of motion Intake and Output 04/22/18 04/23/18 19:00 07:00 Intake Total 1977 ml 1180 ml Output Total 700 ml 400 ml Balance 1277 ml 780 ml Intake Free Water 400 ml 100 ml IV Total 1157 ml 620 ml Tube Feeding 360 ml 360 ml Other 60 ml 100 ml Output Urine Total 700 ml 400 ml Laboratory Tests Test 04/23/18 03:10 Sodium Level 136 MMOL/L (136-145) Potassium Level 3.8 MMOL/L (3.5-5.1) Chloride Level 105 MMOL/L (98-107) Carbon Dioxide Level 24 MMOL/L (21-32) Anion Gap 7 mmol/L (5-15) Blood Urea Nitrogen 12 mg/dL (7-18) Creatinine 1.0 MG/DL (0.55-1.30) Estimat Glomerular Filtration Rate > 60 mL/min (>60) Glucose Level 92 MG/DL (74-106) Calcium Level 8.4 MG/DL (8.5-10.1) L Random Amikacin Level Pending Microbiology Date/Time Source Procedure Growth Status 04/21/18 12:35 Blood Blood Culture - Preliminary NO GROWTH AFTER 24 HOURS Resulted 04/21/18 12:25 Blood Blood Culture - Preliminary NO GROWTH AFTER 24 HOURS Resulted 04/21/18 01:00 Urine,Clean Catch Urine Culture - Preliminary Gram Negative Bacillus 1 Resulted Fausto Berg M.D. Apr 23, 2018 10:29
--- NOTE | 2018-04-23 10:49 | Diagnostic Imaging Report ---
Indication: Dyspnea Technique: One view of the chest Comparison: 04/20/2018 Findings: Tracheostomy is unchanged. Left chest AICD remains. Previously demonstrated right suprahilar opacity appears improved. Previously demonstrated left infrahilar opacity appears similar to the prior exam. Metallic foreign body again demonstrated within or adjacent to the right humeral head Impression: Improving right suprahilar infiltrate, over 3 days. Persistent left infrahilar parenchymal disease Other stable findings as described
[2018-04-23 12:00] VITALS: BP 102/64
--- NOTE | 2018-04-23 12:25 | Infectious Diseases Prog Note ---
Assessment/Plan Assessment/Plan Assessment: SEpsis, improving- 2ry to HCAP -CXR /: Improving right suprahilar infiltrate, over 3 days. Persistent left infrahilar parenchymal dise -CXR 04/20: Questionable increased parenchymal infiltrates in the right suprahilar region and left infrahilar region, over 3 days. -CXR: no acute disease -CT abd/p: Left posterior basal pneumonia suspected. Correlate clinically. Grade 4 sacral decubitus ulcer with exposed sacrum/coccyx. Correlate clinically. Severe hip contraction deformity and heterotopic ossification about both hips. Bilateral nonobstructive stones within the kidneys. Gastrostomy. Considerable artifact limiting evaluation of the upper abdomen. Liquefied stool in the colon. Correlate for diarrhea and enteritis. -u/a no pyuria; ucx 30-40 K PSA (likely colonizer) -Bcx NTD -sp cx S. maltophilia (S bactrim, levaquin), MDR PsA (S Amikacin, Genta) -Cdiff neg -lipase 43 Fever,/leukocytosis, improving; No cbc today Multiple lower extremity decubitus (including stage IV sacral decubitus) w/ likely chronic OM- no signs of active infection -04/17 wound cx L trochanter: ESBL P. stuartti (colonizer) 02/2018 WndC x: MDR Providencia (+ skin colonizer ) Bone scan limited for eval of osteomyelitis. ( due to contracted Ext. ) -s/p 2 weeks of treatment 02/2018 -L hip necrotic/unstagelable decubitus ulcer SP Debridement 11/29 ; Wnd Cx : ACB and Kleb and Strp GrG , MRSA Hx of MSSA bacteremia 11/2017 2ry to infected sacral wound ( SP 4 wks AB rx ) Hx of Pseudomonas urinary tract infection. hx of SCx: MDR-PSA ( colonizer ) Ch transaminitis /cirrhosis Hep C Ab + VDRF Status post trach and percutaneous endoscopic gastrostomy. Dementia Seizure disorder. History of pacemaker placement/AICD -hx of Vtach. Hypertension. COPD. Diabetes. Afib Cardiomyopathy Rheumatic tricuspid valve disease FTT GERD CVA/TIA [facility] resident NKDA FUll code Plan: -Continue Meropenem #4 and IV Amikacin and INH Colistin #2 for MDR PSA -monitor Creatinine on amikacin and bactrim combination; did not chose Levaquin as patient has already elevated QTc and is on amiodarone -Continue IV Bactrim 5mg/kg q8hr #3 for S.maltophilia PNA -6/ SP IV Vanco and Zosyn #4 -03/04 SP Meropenem #14 -03/01 SP IV Vanco #7 -02/20 SP vancomycin and Zosyn d#3 -/ SP IV Vancomycin #28 -12/16 SP Meropenem #14 -11/22/17 SP IV Zosyn d# 3 -f/u cx -Monitor CBC/BMP, temperatures -wound care per hospital protocol -Sx f/u -trach/peg care -aspiration precautions Thank you for this consultation. Will continue to follow along with you. Discussed with RN. Subjective Allergies: Coded Allergies: No Known Allergies (Unverified , 03/07/17) Subjective afebrile in >36hrs WBC 13; no cbc today BCx NTD Objective Vital Signs Last 24 Hour Vital Signs Date Time Temp Pulse Resp B/P (MAP) Pulse Ox O2 Delivery O2 Flow Rate FiO2 04/23/18 11:10 87 18 35 04/23/18 09:23 96 17 100 Mechanical Ventilator 35 04/23/18 09:18 96 119/76 04/23/18 09:11 96 16 35 04/23/18 09:10 96 17 100 Mechanical Ventilator 35 04/23/18 08:00 35 04/23/18 08:00 98.2 93 19 119/76 100 98.2 04/23/18 08:00 92 04/23/18 07:05 100 18 35 04/23/18 05:22 95 20 35 04/23/18 04:00 98.5 104 19 124/76 100 Mechanical Ventilator 35 98.5 04/23/18 04:00 35 04/23/18 03:31 100 04/23/18 03:18 111 20 35 04/23/18 00:55 112 21 35 04/23/18 00:00 105 04/23/18 00:00 98.4 104 26 107/60 100 Mechanical Ventilator 35 98.4 04/22/18 22:58 101 20 35 04/22/18 21:45 112 103/60 04/22/18 20:58 112 20 35 04/22/18 20:00 35 04/22/18 20:00 98.5 109 20 103/60 97 Mechanical Ventilator 35 98.5 04/22/18 19:05 99 04/22/18 19:01 102 22 35 04/22/18 17:15 99 16 35 04/22/18 16:10 101 16 35 04/22/18 16:00 98.2 100 20 104/68 100 Mechanical Ventilator 35 98.2 04/22/18 16:00 35 04/22/18 15:17 101 04/22/18 13:01 98 18 35 Height (Feet): 5 Height (Inches): 8.00 Weight (Pounds): 130 Objective GENERAL: The patient is a thin-appearing cachectic male, who is lethargic. HEENT: Pupils are equal and responsive to light and accommodation. NECK: Supple without lymphadenopathy. There is presence of tracheostomy noted. CHEST: Decreased breath sounds bilaterally with expiratory wheezes. Otherwise, clear to auscultation without wheezes or rales. CARDIOVASCULAR: Tachycardic, regular rhythm. S1 and S2 are normal without murmurs, rubs, or gallops. ABDOMEN: Soft and nondistended with positive bowel sounds. No evidence of hepatosplenomegaly. Currently, no rebound or guarding noted. EXTREMITIES: Multiple contractures noted. INTEGUMENT: Presence of a stage IV sacral decubitus. Microbiology Date/Time Source Procedure Growth Status 04/21/18 12:35 Blood Blood Culture - Preliminary NO GROWTH AFTER 24 HOURS Resulted 04/21/18 12:25 Blood Blood Culture - Preliminary NO GROWTH AFTER 24 HOURS Resulted 04/21/18 01:00 Urine,Clean Catch Urine Culture - Preliminary Pseudomonas Aeruginosa Yeast Species Resulted Laboratory Tests Test 04/23/18 03:10 Sodium Level 136 MMOL/L (136-145) Potassium Level 3.8 MMOL/L (3.5-5.1) Chloride Level 105 MMOL/L (98-107) Carbon Dioxide Level 24 MMOL/L (21-32) Anion Gap 7 mmol/L (5-15) Blood Urea Nitrogen 12 mg/dL (7-18) Creatinine 1.0 MG/DL (0.55-1.30) Estimat Glomerular Filtration Rate > 60 mL/min (>60) Glucose Level 92 MG/DL (74-106) Calcium Level 8.4 MG/DL (8.5-10.1) L Random Amikacin Level 24.4 MG/L Current Medications Medications (Trade) Dose Ordered Sig/Tameka Route PRN Reason Start Time Stop Time Status Last Admin Dose Admin Acetaminophen (Tylenol) 650 mg Q4H PRN ORAL FEVER 04/17/18 20:00 05/17/18 19:59 04/21/18 15:40 Amikacin Protocol (Amikacin pharmacy to dose) 1 ea DAILY PRN MISC Per rx protocol 04/22/18 12:30 05/22/18 12:29 Amikacin Sulfate 1000 mg/Sodium Chloride 114 ml @ 114 mls/hr Q24H IV 04/22/18 15:00 04/29/18 14:59 04/22/18 15:55 Amiodarone HCl (Cordarone) 200 mg DAILY GT 04/18/18 09:00 05/18/18 08:59 04/23/18 09:18 Carvedilol (Coreg) 6.25 mg EVERY 12 HOURS ORAL 04/20/18 21:00 05/20/18 20:59 04/23/18 09:18 Colistimethate Sodium (Colistin *inhalation use only*) 150 mg Q12HRT INH 04/22/18 22:00 04/29/18 21:59 04/23/18 09:10 Dextrose (Dextrose 50%) 25 ml STAT PRN IV BS 60-69mg/dl 04/17/18 20:15 05/17/18 20:14 Dextrose (Dextrose 50%) 50 ml STAT PRN IV BS less than 60mg/dl 04/17/18 20:00 05/17/18 19:59 Heparin Sodium (Porcine) (Heparin 5000 units/ml) 5,000 units EVERY 12 HOURS SUBQ 04/17/18 21:00 05/17/18 20:59 04/23/18 09:17 Iopamidol (Isovue-300 100ml) 100 ml NOW PRN INJ Radiology Procedure 04/17/18 14:45 Levetiracetam (Keppra) 500 mg Q12HR GT 04/17/18 21:00 05/17/18 20:59 04/23/18 09:16 Lorazepam (Ativan 2mg/ml 1ml) 2 mg EVERY 2 HOURS PRN IV For Anxiety 04/17/18 20:00 04/24/18 19:59 Meropenem 1 gm/ Sodium Chloride 55 ml @ 110 mls/hr Q8HR IVPB 04/20/18 14:00 04/25/18 13:59 04/23/18 05:46 Morphine Sulfate (Morphine Sulfate) 4 mg EVERY 4 HOURS PRN IVP Severe Pain (Pain Scale 7-10) 04/17/18 20:00 04/24/18 19:59 04/23/18 00:52 Ondansetron HCl (Zofran) 4 mg Q6H PRN IVP Nausea & Vomiting 04/17/18 20:00 05/17/18 19:59 Pantoprazole (Protonix) 40 mg DAILY IV 04/18/18 09:00 05/18/18 08:59 04/23/18 09:16 Polyethylene Glycol (Miralax) 17 gm DAILYPRN PRN ORAL Constipation 04/17/18 20:00 05/17/18 19:59 Trimethoprim/ Sulfamethoxazole 15 ml/Dextrose 565 ml @ 565 mls/hr Q8H IV 04/23/18 08:00 04/30/18 07:59 04/23/18 09:16 Radha Saini M.D. Apr 23, 2018 12:25
--- NOTE | 2018-04-23 14:50 | General Surgery Progress Note ---
General Surgery-Progress Note Subjective Symptoms: improved, tolerating diet, passing flatus, BM Additional Comments no acute events. Objective Last 24 Hour Vital Signs Date Time Temp Pulse Resp B/P (MAP) Pulse Ox O2 Delivery O2 Flow Rate FiO2 04/23/18 13:15 88 20 35 04/23/18 12:00 35 04/23/18 12:00 98.3 88 22 102/64 100 98.3 88 04/23/18 11:32 89 04/23/18 11:10 87 18 35 04/23/18 09:23 96 17 100 Mechanical Ventilator 35 04/23/18 09:18 96 119/76 04/23/18 09:11 96 16 35 04/23/18 09:10 96 17 100 Mechanical Ventilator 35 04/23/18 08:00 35 04/23/18 08:00 98.2 93 19 119/76 100 98.2 04/23/18 08:00 92 04/23/18 07:05 100 18 35 04/23/18 05:22 95 20 35 04/23/18 04:00 98.5 104 19 124/76 100 Mechanical Ventilator 35 98.5 04/23/18 04:00 35 04/23/18 03:31 100 04/23/18 03:18 111 20 35 04/23/18 00:55 112 21 35 04/23/18 00:00 105 04/23/18 00:00 98.4 104 26 107/60 100 Mechanical Ventilator 35 98.4 04/22/18 22:58 101 20 35 04/22/18 21:45 112 103/60 04/22/18 20:58 112 20 35 04/22/18 20:00 35 04/22/18 20:00 98.5 109 20 103/60 97 Mechanical Ventilator 35 98.5 04/22/18 19:05 99 04/22/18 19:01 102 22 35 04/22/18 17:15 99 16 35 04/22/18 16:10 101 16 35 04/22/18 16:00 98.2 100 20 104/68 100 Mechanical Ventilator 35 98.2 04/22/18 16:00 35 04/22/18 15:17 101 I&O Intake and Output 04/22/18 04/23/18 19:00 07:00 Intake Total 1977 ml 1180 ml Output Total 700 ml 400 ml Balance 1277 ml 780 ml Intake Free Water 400 ml 100 ml IV Total 1157 ml 620 ml Tube Feeding 360 ml 360 ml Other 60 ml 100 ml Output Urine Total 700 ml 400 ml Dressing: saturated Wound: other Drains: none Cardiovascular: RSR Respiratory: clear Abdomen: soft, flat Extremities: edema Laboratory Tests Test 04/23/18 03:10 Sodium Level 136 MMOL/L (136-145) Potassium Level 3.8 MMOL/L (3.5-5.1) Chloride Level 105 MMOL/L (98-107) Carbon Dioxide Level 24 MMOL/L (21-32) Anion Gap 7 mmol/L (5-15) Blood Urea Nitrogen 12 mg/dL (7-18) Creatinine 1.0 MG/DL (0.55-1.30) Estimat Glomerular Filtration Rate > 60 mL/min (>60) Glucose Level 92 MG/DL (74-106) Calcium Level 8.4 MG/DL (8.5-10.1) L Random Amikacin Level 24.4 MG/L Plan Problems: (1) Sacral decubitus ulcer, stage IV Assessment & Plan: stage IV sacral decubitus ulcer - clean, no signs of active infection, no tracking, down to coccyx, some granulation tissue, no significant fibrinous tissue stage IV left hip decubitus ulcer - clean, no signs of active infection, mild 3 o'clock tracking, some granulation tissue, mild fibrinous tissue stage IV left buttock decubitus ulcer - clean, no signs of active infection, no tracking, some granulation tissue, mild fibrinous tissue stage IV right hip decubitus ulcer - clean, no signs of active infection, no tracking, some granulation tissue, moderate fibrinous tissue stage IV right buttock decubitus ulcer - clean, no signs of active infection, no tracking, some granulation tissue, moderate fibrinous tissue bilateral heel/foot wounds - no signs of active infection. planned for debridement of wounds. unfortunately for the past 48hrs have been attempting to contact POA/family without response. fortunately stable and safe for discharge. will need debridement at some point to help with wound healing. can be done as outpatient or in outpatient facility once able to reach family for consent. All wounds present upon admission. As for care, for now please was wounds, place dry guaze to wound bed, then cover with foam dressing or ABD 2-3 times per day. may need debridement of right hip and buttock wounds to help with healing but for now will monitor. thank you for this consultation. will follow with recs. Derek Dong Apr 23, 2018 14:50
[2018-04-23 16:00] VITALS: BP 120/80
--- NOTE | 2018-04-23 18:32 | Internal Med Progress Note ---
Subjective Date of Service: Apr 23, 2018 Physician Name Aaron Solis Attending Physician Roland Box MD Current Medications Medications (Trade) Dose Ordered Sig/Tameka Route PRN Reason Start Time Stop Time Status Last Admin Dose Admin Acetaminophen (Tylenol) 650 mg Q4H PRN ORAL FEVER 04/17/18 20:00 05/17/18 19:59 04/23/18 17:17 Amikacin Protocol (Amikacin pharmacy to dose) 1 ea DAILY PRN MISC Per rx protocol 04/22/18 12:30 05/22/18 12:29 Amikacin Sulfate 875 mg/Dextrose 113.5 ml @ 113.5 mls/ hr Q48H IV 04/24/18 16:00 05/01/18 15:59 Amiodarone HCl (Cordarone) 200 mg DAILY GT 04/18/18 09:00 05/18/18 08:59 04/23/18 09:18 Carvedilol (Coreg) 6.25 mg EVERY 12 HOURS ORAL 04/20/18 21:00 05/20/18 20:59 04/23/18 09:18 Colistimethate Sodium (Colistin *inhalation use only*) 150 mg Q12HRT INH 04/22/18 22:00 04/29/18 21:59 04/23/18 09:10 Dextrose (Dextrose 50%) 25 ml STAT PRN IV BS 60-69mg/dl 04/17/18 20:15 05/17/18 20:14 Dextrose (Dextrose 50%) 50 ml STAT PRN IV BS less than 60mg/dl 04/17/18 20:00 05/17/18 19:59 Heparin Sodium (Porcine) (Heparin 5000 units/ml) 5,000 units EVERY 12 HOURS SUBQ 04/17/18 21:00 05/17/18 20:59 04/23/18 09:17 Iopamidol (Isovue-300 100ml) 100 ml NOW PRN INJ Radiology Procedure 04/17/18 14:45 Levetiracetam (Keppra) 500 mg Q12HR GT 04/17/18 21:00 05/17/18 20:59 04/23/18 09:16 Lorazepam (Ativan 2mg/ml 1ml) 2 mg EVERY 2 HOURS PRN IV For Anxiety 04/17/18 20:00 04/24/18 19:59 Meropenem 1 gm/ Sodium Chloride 55 ml @ 110 mls/hr Q8HR IVPB 04/20/18 14:00 04/25/18 13:59 04/23/18 14:45 Morphine Sulfate (Morphine Sulfate) 4 mg EVERY 4 HOURS PRN IVP Severe Pain (Pain Scale 7-10) 04/17/18 20:00 04/24/18 19:59 04/23/18 00:52 Ondansetron HCl (Zofran) 4 mg Q6H PRN IVP Nausea & Vomiting 04/17/18 20:00 05/17/18 19:59 Pantoprazole (Protonix) 40 mg DAILY IV 04/18/18 09:00 05/18/18 08:59 04/23/18 09:16 Polyethylene Glycol (Miralax) 17 gm DAILYPRN PRN ORAL Constipation 04/17/18 20:00 05/17/18 19:59 Trimethoprim/ Sulfamethoxazole 15 ml/Dextrose 565 ml @ 565 mls/hr Q8H IV 04/23/18 08:00 04/30/18 07:59 04/23/18 17:16 Allergies: Coded Allergies: No Known Allergies (Unverified , 03/07/17) ROS Limited/Unobtainable: Yes Subjective 58 YO M with chronic respiratory failure and vent dependence admitted with respiratory distress. Now pneumonia and sepsis. Cover for Int Med-Dr Box. [facility] Objective Last Vital Signs Date Time Temp Pulse Resp B/P (MAP) Pulse Ox O2 Delivery O2 Flow Rate FiO2 04/23/18 17:17 98.3 04/23/18 17:12 94 18 35 04/23/18 16:00 120/80 100 04/23/18 09:23 Mechanical Ventilator Laboratory Tests Test 04/23/18 03:10 Sodium Level 136 MMOL/L (136-145) Potassium Level 3.8 MMOL/L (3.5-5.1) Chloride Level 105 MMOL/L (98-107) Carbon Dioxide Level 24 MMOL/L (21-32) Anion Gap 7 mmol/L (5-15) Blood Urea Nitrogen 12 mg/dL (7-18) Creatinine 1.0 MG/DL (0.55-1.30) Estimat Glomerular Filtration Rate > 60 mL/min (>60) Glucose Level 92 MG/DL (74-106) Calcium Level 8.4 MG/DL (8.5-10.1) L Random Amikacin Level 24.4 MG/L Microbiology Date/Time Source Procedure Growth Status 04/21/18 12:35 Blood Blood Culture - Preliminary NO GROWTH AFTER 24 HOURS Resulted 04/21/18 12:25 Blood Blood Culture - Preliminary NO GROWTH AFTER 24 HOURS Resulted 04/21/18 01:00 Urine,Clean Catch Urine Culture - Preliminary Pseudomonas Aeruginosa Yeast Species Resulted Intake and Output 04/22/18 04/23/18 19:00 07:00 Intake Total 1977 ml 1180 ml Output Total 700 ml 400 ml Balance 1277 ml 780 ml Intake Free Water 400 ml 100 ml IV Total 1157 ml 620 ml Tube Feeding 360 ml 360 ml Other 60 ml 100 ml Output Urine Total 700 ml 400 ml Objective General Appearance: cachetic, lethargic, thin EENT: normal ENT inspection Neck: non-tender, stiff neck, other - tracheostomy present Cardiovascular: normal peripheral pulses, normal rate, regular rhythm, no gallop/murmur, no JVD Respiratory/Chest: Mech vent; crackles/rales, rhonchi - bilaterally, expiratory wheezing Abdomen: normal bowel sounds, non tender, soft, no organomegaly, no mass Extremities: other - contracted X 4 Skin: normal pigmentation, warm/dry; stage IV sacral decubitus ulcer Assessment/Plan Problem List: (1) Pneumonia Assessment & Plan: Stenotrophomonas Maltophilia and Gram neg jose luis. Await ID and sensitivity. See pulmonary and ID note. Continue zosyn and vanco (2) Seizure disorder Assessment & Plan: Continue Keppra (3) Hypertension Assessment & Plan: Continue coreg (4) Diabetes mellitus type II, uncontrolled (5) Sacral decubitus ulcer, stage IV Assessment & Plan: Possible chronic osteomyelitis-continue antibiotic per ID. See surgery consult (6) CHF (congestive heart failure) (7) Cardiomyopathy (8) Tracheostomy care (9) Cerebral vascular disease (10) Acute on chronic respiratory failure (11) Sepsis Assessment & Plan: await blood culture results. Continue zosyn and vanco (12) Leukocytosis (13) Anemia Assessment & Plan: S/P transfusion 2 units PRBC. (14) Atrial fibrillation Assessment & Plan: Continue amiodarone (15) Feeding by G-tube (16) UTI (urinary tract infection) Assessment & Plan: Klebsiella and yeast. Continue bactrim and meropenem Status: not improved Aaron Solis MD Apr 23, 2018 18:32
[2018-04-23 20:00] VITALS: BP 109/70
[2018-04-23] MEDS ORDERED: Tubing IV Secondary IV ONE (20:29)
[2018-04-23] MEDS ORDERED: NS 500ML ONE (20:29)
--- NOTE | 2018-04-24 11:40 | Discharge Summary ---
Discharge Summary Discharge Summary _ DATE OF ADMISSION: 04/17/2018 DATE OF DISCHARGE: 04/23/2018 ATTENDING: Dr. Roland Box CONSULTANTS: Dr. Shani Donaldson BRIEF HOSPITAL COURSE: Patient is a 58-year-old -[place] male, who presented from jail due to fever. Patient himself is unable to contribute to history and physical. Patient is a chronic vent dependent. According to staff at [facility], patient had fever for 2 days. He has medical history significant for chronic respiratory failure, vent dependent, congestive heart failure, cardiomyopathy, atrial fibrillation, dysphagia, and encephalopathy. He is status post AICD placement, PEG placement, and has a tracheostomy. On evaluation at ED, temperature was 99.2. he was tachycardic. Blood work showed leukocytosis, WBC was 14.6. Hemoglobin was low at 7, hematocrit was 23.8 , platelet was 459. He was noted to have hypernatremia, sodium was 149, chloride 114, potassium was 3.1. Chest x-ray done showed no acute disease. CT of the abdomen and pelvis showed possible left posterior basal pneumonia. He was started on sepsis protocol. He was admitted for evaluation of sepsis and pneumonia. He was started empirically on Zosyn. He was seen by infectious disease specialist, IV vancomycin was added. He came in anemic, he received 2 units packed RBC blood transfusion. Anemia workup showed anemia due to underlying chronic disease. B12 was 1458, homocystine level was less than 3. He had an elevated CEA of 9.2. He had a prior endoscopy and CEA has been improving and been stable although elevated. He has history of atrial fibrillation, with cardiomyopathy status post ICD, LVEF of 30% and history of rheumatic tricuspid valve disease. He was continued on Coreg for cardiomyopathy. He was given amiodarone 200 mg daily. He had an ICD in place with no recurrent shocks. Blood pressure was elevated, Coreg was increased to 6.25 mg twice a day. He presented with hypernatremia, secondary to intravascular volume depletion. Free water via G-tube was increased. He also had mild hypokalemia and was given potassium supplement. Dehydration eventually resolved and sodium levels improved. He came in with multiple decubiti ulcers, he was seen by surgeon and wound care was done. Wound dressings were changed. He may eventually need debridement of right hip and buttock to help with healing. Sputum culture was growing gram-negative rods. IV vancomycin and Zosyn was discontinued. He was started on meropenem. IV Bactrim was added for Stenotrophomonas maltophilia. Inhaled colistin was also added for MDR pseudomonas. He eventually defervesced, and hemoglobin levels stabilized. Repeat chest x- ray showed improved lung infiltrate. He was eventually discharged back to jail. FINAL DIAGNOSES: Sepsis secondary to healthcare associated pneumonia Multiple decubiti pressure ulcer, present on admission Acute drop in hemoglobin requiring blood transfusion Anemia of chronic disease Seizure disorder Acute on chronic respiratory failure Cardiomyopathy Congestive heart failure Atrial fibrillation Dysphagia with feeding via G-tube Urinary tract infection with Klebsiella and yeast Hypertension Old cerebrovascular disease Dementia Pacemaker status COPD Failure to thrive GERD Elevated CEA coagulopathy potentially secondary to hepatitis C Hypernatremia Hypokalemia Dehydration, resolved DISPOSITION: Patient was discharged back to [facility]. DISCHARGE MEDICATIONS: Refer to Discharge Medication List. Continue with amikacin, inhaled colistin, ertapenem, and Bactrim x 10 days. I have been assigned to dictate discharge summary on this account, and I was not involved in the patient's management. Miriam Lazo NP Apr 24, 2018 11:40
[2018-04-24] MEDS ORDERED: AMIKACIN IV SCH (16:00)
[2018-04-24] MEDS ORDERED: D5W IV SCH (16:00)
== END 2018-04-23 20:30 | DRG 720 ==
LOC: EDBD 13:22 → EDBEDREQ 13:44 → EMR 14:02 → EDBEDREQSVC 15:15 → 2W 16:44 → EDBEDREQ 17:35
PROC: 5A1955Z Respiratory Ventilation, Greater than 96 Consecutive Hours (ICD-10-PCS; principal; 2018-04-17)
DX: A41.9 Sepsis, unspecified organism (principal); J96.20 Acute and chronic respiratory failure, unspecified whether with hypoxia or hypercapnia; G93.40 Encephalopathy, unspecified; J18.9 Pneumonia, unspecified organism; L89.154 Pressure ulcer of sacral region, stage 4; L89.224 Pressure ulcer of left hip, stage 4; L89.214 Pressure ulcer of right hip, stage 4; Z99.11 Dependence on respirator [ventilator] status; Z93.0 Tracheostomy status; L89.324 Pressure ulcer of left buttock, stage 4; L89.314 Pressure ulcer of right buttock, stage 4; I11.0 Hypertensive heart disease with heart failure; I50.9 Heart failure, unspecified; E87.0 Hyperosmolality and hypernatremia; I42.9 Cardiomyopathy, unspecified; Z93.1 Gastrostomy status; I48.2 Chronic atrial fibrillation; Z79.01 Long term (current) use of anticoagulants; R13.10 Dysphagia, unspecified; Z95.810 Presence of automatic (implantable) cardiac defibrillator; E11.9 Type 2 diabetes mellitus without complications; I07.8 Other rheumatic tricuspid valve diseases; K74.60 Unspecified cirrhosis of liver; K21.9 Gastro-esophageal reflux disease without esophagitis; F03.90 Unspecified dementia, unspecified severity, without behavioral disturbance, psychotic disturbance, mood disturbance, and anxiety; G40.909 Epilepsy, unspecified, not intractable, without status epilepticus; E86.0 Dehydration; E87.6 Hypokalemia; N39.0 Urinary tract infection, site not specified; R00.0 Tachycardia, unspecified; R74.0 Nonspecific elevation of levels of transaminase and lactic acid dehydrogenase [LDH]; R71.0 Precipitous drop in hematocrit; D64.9 Anemia, unspecified; B19.20 Unspecified viral hepatitis C without hepatic coma
CPT/HCPCS: 36415; 71045; 74177; 80048; 80053; 80069; 80150; 80202; 81003; 82270; 82378; 82550; 82553; 82607; 82746; 83540; 83550; 83605; 83615; 83690; 83735; 83880; 84100; 84484; 85007; 85025; 85044; 85060; 85610; 85651; 85730; 86140; 86850; 86900; 86901; 86920; 87040; 87070; 87081; 87086; 87181; 87205; 87324; 93005; 93970; 94002; 94003; 94640; 94664; 99285; J8499

== ENCOUNTER 2018-05-02 17:19 | Inpatient (IN) | payer OTHER ==
[~2018-05-02] VITALS: Ht 167.6 cm; Wt 49.0 kg
[~2018-05-02 17:19] MED LIST changes: +CARVEDILOL3.125 MG ORAL; -FOLIC ACID1 MG ORAL
[2018-05-02 18:00] VITALS: BP 104/88
[2018-05-02] MEDS ORDERED: Vancomycin 1 GM in NS 275 ML IV ONE (18:30)
[2018-05-02] MEDS ORDERED: Cefepime 1gm vial ONE (19:08)
[2018-05-02] MEDS: Cefepime HCl 1 GM in NS 55 ML IV SCH (19:14)
[2018-05-02] MEDS ORDERED: CARVEDILOL6.25 MG GT (19:20)
[2018-05-02] MEDS ORDERED: EPOGEN20000 UNI1 SUBQ (19:20)
[2018-05-02] MEDS ORDERED: UTI-STAT L3875 MG/31 GT (19:22)
[2018-05-02 19:31] VITALS: BP 101/66
[2018-05-02 19:43] LABS: BASOPHILS % (AUTO) 0.8 % (0.0-2.0); EOSINOPHILS % (AUTO) 4.8 % (0.0-3.0); HEMATOCRIT 34.6 % (42.0-52.0); HEMOGLOBIN 10.7 G/DL (14.2-18.0); LYMPHOCYTES % (AUTO) 13.2 % (20.0-45.0); MEAN CORPUSCULAR VOLUME 87 FL (80-99); MONOCYTES % (AUTO) 9.7 % (1.0-10.0); NEUTROPHILS % (AUTO) 71.5 % (45.0-75.0); PLATELET COUNT 527 K/UL (150-450); RED BLOOD COUNT 3.97 M/UL (4.70-6.10); RED CELL DISTRIBUTION WIDTH 14.8 % (11.6-14.8); WHITE BLOOD COUNT 13.1 K/UL (4.8-10.8)
[2018-05-02 19:44] LABS: APPEARANCE,URINE CLEAR; BILIRUBIN, URINE NEGATIVE (NEGATIVE); GLUCOSE, URINE (UA) NEGATIVE (NEGATIVE); KETONES,URINE NEGATIVE (NEGATIVE); LEUKOCYTE ESTERASE ,URINE 2+ (NEGATIVE); NITRITE,URINE NEGATIVE (NEGATIVE); PH,URINE 8 (4.5-8.0); PROTEIN,URINE 3+ (NEGATIVE); UROBILINOGEN,URINE NORMAL MG/DL (0.0-1.0)
--- NOTE | 2018-05-02 19:45 | Diagnostic Imaging Report ---
EXAM: XR Chest, 1 View CLINICAL HISTORY: Shortness of breath TECHNIQUE: Frontal view of the chest. COMPARISON: 04/23/2018 FINDINGS: Lungs: Bilateral pulmonary hyperinflation. No focal consolidation. No consolidation. Pleural space: Unremarkable. No pneumothorax. Heart: Unremarkable. No cardiomegaly. Mediastinum: Unremarkable. Bones/joints: Postsurgical changes in the right humeral head. No acute osseous abnormality. Tubes, lines and devices: Stable tracheostomy cannula terminates to the thoracic inlet. Stable left AICD. Telemetry leads overlie the patient. IMPRESSION: No acute cardiopulmonary process.
[2018-05-02 19:48] LABS: INR 1.2 (0.9-1.1)
[2018-05-02 19:49] LABS: COLOR,URINE YELLOW
[2018-05-02 21:07] LABS: ANION GAP 12 mmol/L (5-15); BLOOD UREA NITROGEN 34 mg/dL (7-18); CALCIUM 8.4 MG/DL (8.5-10.1); CARBON DIOXIDE 21 MMOL/L (21-32); CHLORIDE 103 MMOL/L (98-107); CREATININE 1.1 MG/DL (0.55-1.30); POTASSIUM 4.4 MMOL/L (3.5-5.1); SODIUM 136 MMOL/L (136-145)
[2018-05-02 21:21] LABS: ALANINE AMINOTRANSFERASE 13 U/L (12-78); ALBUMIN 1.5 G/DL (3.4-5.0); ALBUMIN/GLOBULIN RATIO 0.2 (1.0-2.7); ALKALINE PHOSPHATASE 228 U/L (46-116); ASPARTATE AMINO TRANSFERASE 16 U/L (15-37); BILIRUBIN,TOTAL 0.2 MG/DL (0.2-1.0); CKMB 1.2 NG/ML (0.0-3.6); CREATINE KINASE 28 U/L (26-308); PHOSPHORUS 3.7 MG/DL (2.5-4.9)
[2018-05-02 21:36] VITALS: BP 110/68
[2018-05-02] MEDS ORDERED: Mylanta II UD 30ml ORAL PRN (22:15)
[2018-05-02] MEDS ORDERED: Nitroglycerin Subl 0.4mg tab SL PRN (22:15)
[2018-05-02] MEDS ORDERED: Miralax 17gm pkt ORAL PRN (22:15)
[2018-05-02] MEDS ORDERED: Morphine Sulfate 4mg/ml Inj IVP PRN (22:30)
[2018-05-02 23:53] VITALS: BP 98/68
--- NOTE | 2018-05-03 00:17 | Emergency Room Report ---
History of Present Illness General Chief Complaint: Malfunctioning Gastric Tube Source: Medical Record, EMS Present Illness HPI Patient's 58-year-old male brought in by EMS after increased drainage from his G -tube site. Patient had previously been noted to have a G-tube placement. Patient had multiple chronic medical problems is chronically debilitated. History is obtained from EMS. The patient was noted to be nonverbal. He is tracheostomy dependent. Allergies: Coded Allergies: No Known Allergies (Unverified , 03/07/17) Patient History Past Medical History: see triage record Reviewed Nursing Documentation: PMH: Agreed; PSxH: Agreed Nursing Documentation-PMH Hx Cardiac Problems: Yes - Afib; Cardiomyapathy. rheumatic tricuspid valve disease Hx Hypertension: Yes - Anemia, vtach, hypotension Hx Pacemaker: Yes - Defibrillator implant Hx COPD: Yes - Resp failure, vent dep.. PNA, acidosis, sepsis, proteinuria Hx Diabetes: No - Failure to thrive Hx Cancer: No - Sepsis Hx Gastrointestinal Problems: Yes - GT; Cirrhosis, dysphagia, tracheostomy, GERD, cirrhosis, ascites Hx Neurological Problems: Yes - ENCEPHALOPATHY, muscle weakness, Hx Cerebrovascular Accident: Yes - breakdown of cardiac pulse generator ( battery) Hx Transient Ischemic Attacks: Yes Hx Dementia: Yes Hx Seizures: Yes Review of Systems All Other Systems: limited - by mental status Physical Exam Vital Signs Date Time Temp Pulse Resp B/P (MAP) Pulse Ox O2 Delivery O2 Flow Rate FiO2 05/02/18 17:20 97.0 113 21 94/61 100 Mechanical Ventilator 97.0 05/02/18 18:25 60 General Appearance: thin, Chronically Ill Eyes: bilateral eye other ENT: dry mucus membranes Neck: limited range of motion, tracheotomy Respiratory: lungs clear, normal breath sounds Cardiovascular #1: normal peripheral pulses, regular rate, rhythm Gastrointestinal: other - large stoma defect, small amount of bleeding. Musculoskeletal: normal inspection Neurologic: normal inspection, alert, oriented x3, responsive Skin: normal inspection, normal color, no rash Medical Decision Making Diagnostic Impression: Primary Impression: Malfunction of gastrostomy tube Additional Impression: Ventilator dependence ER Course Patient presented for G-tube malfunction. The differential diagnosis included was not limited to perforation, sepsis, aortoenteric fistula, the pressure ulcer among others.Because of complexity of patient's case laboratory testing and imaging studies were ordered.The stoma was dressed with Surgicel to the promotes hemostasis The laboratory testing and no for elevated white blood count. Patient noted have evidence of G-tube erosion which will likely require GI consult for further evaluation and treatment. Patient will be admitted for further evaluation. Patient was discussed with Dr. Box for inpatient management. Patient will be admitted to [facility] due to ventilator dependence Labs Test 05/02/18 18:19 05/02/18 19:00 05/02/18 19:15 Arterial Blood pH 7.484 (7.350-7.450) Arterial Blood Partial Pressure CO2 30.4 mmHg (35.0-45.0) Arterial Blood Partial Pressure O2 329.8 mmHg (75.0-100.0) Arterial Blood HCO3 22.3 mmol/L (22.0-26.0) Arterial Blood Oxygen Saturation 99.4 % (92.0-98.0) Arterial Blood Base Excess -0.5 Son Test Positive Urine Color Yellow Urine Appearance Clear Urine pH 8 (4.5-8.0) Urine Specific [place] 1.010 (1.005-1.035) Urine Protein 3+ (NEGATIVE) Urine Glucose (UA) Negative (NEGATIVE) Urine Ketones Negative (NEGATIVE) Urine Occult Blood 3+ (NEGATIVE) Urine Nitrite Negative (NEGATIVE) Urine Bilirubin Negative (NEGATIVE) Urine Urobilinogen Normal MG/DL (0.0-1.0) Urine Leukocyte Esterase 2+ (NEGATIVE) Urine RBC 5-10 /HPF (0 - 0) Urine WBC 2-4 /HPF (0 - 0) Urine Squamous Epithelial Cells None /LPF (NONE/OCC) Urine Calcium Oxalate Crystals Occasional /LPF (NONE) Urine Bacteria Few /HPF (NONE) White Blood Count 13.1 K/UL (4.8-10.8) Red Blood Count 3.97 M/UL (4.70-6.10) Hemoglobin 10.7 G/DL (14.2-18.0) Hematocrit 34.6 % (42.0-52.0) Mean Corpuscular Volume 87 FL (80-99) Mean Corpuscular Hemoglobin 26.9 PG (27.0-31.0) Mean Corpuscular Hemoglobin Concent 30.9 G/DL (32.0-36.0) Red Cell Distribution Width 14.8 % (11.6-14.8) Platelet Count 527 K/UL (150-450) Mean Platelet Volume 5.3 FL (6.5-10.1) Neutrophils (%) (Auto) 71.5 % (45.0-75.0) Lymphocytes (%) (Auto) 13.2 % (20.0-45.0) Monocytes (%) (Auto) 9.7 % (1.0-10.0) Eosinophils (%) (Auto) 4.8 % (0.0-3.0) Basophils (%) (Auto) 0.8 % (0.0-2.0) Prothrombin Time 12.3 SEC (9.30-11.50) Prothromb Time International Ratio 1.2 (0.9-1.1) Activated Partial Thromboplast Time 34 SEC (23-33) Sodium Level 136 MMOL/L (136-145) Potassium Level 4.4 MMOL/L (3.5-5.1) Chloride Level 103 MMOL/L (98-107) Carbon Dioxide Level 21 MMOL/L (21-32) Anion Gap 12 mmol/L (5-15) Blood Urea Nitrogen 34 mg/dL (7-18) Creatinine 1.1 MG/DL (0.55-1.30) Estimat Glomerular Filtration Rate > 60 mL/min (>60) Glucose Level 102 MG/DL (74-106) Lactic Acid Level 1.80 mmol/L (0.4-2.0) Calcium Level 8.4 MG/DL (8.5-10.1) Phosphorus Level 3.7 MG/DL (2.5-4.9) Magnesium Level 2.0 MG/DL (1.8-2.4) Total Bilirubin 0.2 MG/DL (0.2-1.0) Aspartate Amino Transf (AST/SGOT) 16 U/L (15-37) Alanine Aminotransferase (ALT/SGPT) 13 U/L (12-78) Alkaline Phosphatase 228 U/L (46-116) Total Creatine Kinase 28 U/L (26-308) Creatine Kinase MB 1.2 NG/ML (0.0-3.6) Creatine Kinase MB Relative Index 4.2 Troponin I 0.000 ng/mL (0.000-0.056) Pro-B-Type Natriuretic Peptide 2078 pg/mL (0-125) Total Protein 7.6 G/DL (6.4-8.2) Albumin 1.5 G/DL (3.4-5.0) Globulin 6.1 g/dL Albumin/Globulin Ratio 0.2 (1.0-2.7) Last Vital Signs Date Time Temp Pulse Resp B/P (MAP) Pulse Ox O2 Delivery O2 Flow Rate FiO2 05/02/18 23:53 98.2 104 19 98/68 100 Mechanical Ventilator 40 98.2 Status: unchanged Disposition: ADMITTED INPATIENT Condition: Serious Referrals: [facility],REFERRING (PCP) Te Castle MD May 03, 2018 00:17
[2018-05-03] MEDS: D5 1/2NS 1,000 ML IV SCH ×2 (00:23→03:25)
[2018-05-03 01:30] VITALS: BP 93/64
[2018-05-03 04:00] VITALS: BP 92/68
[2018-05-03] MEDS ORDERED: DUONEB 0.5-3(2.53 ML HHN ×2 (04:31)
[2018-05-03] MEDS ORDERED: ATIVAN0.5 MG GT (04:31)
[2018-05-03 06:12] LABS: ALANINE AMINOTRANSFERASE 11 U/L (12-78); ALBUMIN 1.4 G/DL (3.4-5.0); ALBUMIN/GLOBULIN RATIO 0.3 (1.0-2.7); ALKALINE PHOSPHATASE 196 U/L (46-116); ANION GAP 9 mmol/L (5-15); ASPARTATE AMINO TRANSFERASE 12 U/L (15-37); BILIRUBIN,TOTAL 0.3 MG/DL (0.2-1.0); BLOOD UREA NITROGEN 30 mg/dL (7-18); CALCIUM 8.2 MG/DL (8.5-10.1); CARBON DIOXIDE 23 MMOL/L (21-32); CHLORIDE 105 MMOL/L (98-107); CREATININE 0.9 MG/DL (0.55-1.30); POTASSIUM 3.8 MMOL/L (3.5-5.1); SODIUM 137 MMOL/L (136-145)
[2018-05-03] MEDS: Cefepime HCl 1 GM in NS 55 ML IV SCH (06:59)
[2018-05-03 07:36] LABS: BASOPHILS % (AUTO) 0.6 % (0.0-2.0); EOSINOPHILS % (AUTO) 7.8 % (0.0-3.0); HEMATOCRIT 28.9 % (42.0-52.0); LYMPHOCYTES % (AUTO) 14.3 % (20.0-45.0); MEAN CORPUSCULAR VOLUME 88 FL (80-99); MONOCYTES % (AUTO) 12.1 % (1.0-10.0); NEUTROPHILS % (AUTO) 65.3 % (45.0-75.0); PLATELET COUNT 482 K/UL (150-450); RED BLOOD COUNT 3.28 M/UL (4.70-6.10); RED CELL DISTRIBUTION WIDTH 15.6 % (11.6-14.8); WHITE BLOOD COUNT 11.4 K/UL (4.8-10.8)
[2018-05-03 08:35] LABS: INR 1.2 (0.9-1.1)
[2018-05-03] MEDS ORDERED: Carvedilol 6.25mg Tab GT SCH (09:00)
[2018-05-03] MEDS: Amiodarone 200mg tab GT SCH (09:23)
[2018-05-03] MEDS: levETIRAcetam 500mg/5ml Liquid GT SCH ×2 (09:24→21:12)
[2018-05-03] MEDS: Albuterol/Ipratropium 3ml neb HHN SCH ×3 (10:36→23:40)
[2018-05-03 11:19] VITALS: BP 91/58
[2018-05-03 12:00] VITALS: BP 94/68
--- NOTE | 2018-05-03 13:16 | General Progress Note ---
Progress Note Progress Note Surgery: patient known to me from prior admissions of which most recent was earlier this month. familiar with wounds. plan for wound debridement but was unable to contact family for consent last admission. will attempt to obtain consent again this admission to assist with wound care stage IV sacral decubitus ulcer - clean, no signs of active infection, no tracking, down to coccyx, some granulation tissue, no significant fibrinous tissue stage IV left hip decubitus ulcer - clean, no signs of active infection, mild 3 o'clock tracking, some granulation tissue, mild fibrinous tissue stage IV left buttock decubitus ulcer - clean, no signs of active infection, no tracking, some granulation tissue, mild fibrinous tissue stage IV right hip decubitus ulcer - clean, no signs of active infection, no tracking, some granulation tissue, moderate fibrinous tissue stage IV right buttock decubitus ulcer - clean, no signs of active infection, no tracking, some granulation tissue, moderate fibrinous tissue bilateral heel/foot wounds - no signs of active infection. All wounds present upon admission. As for care, for now please was wounds, place dry guaze to wound bed, then cover with foam dressing or ABD 2-3 times per day. need debridement of right hip and buttock wounds to help with healing - pending consent thank you for this consultation. will follow with recs. Derek Dong May 03, 2018 13:16
--- NOTE | 2018-05-03 13:53 | History and Physical ---
History of Present Illness General Date patient seen: May 03, 2018 Reason for Hospitalization: Malfunctioning Gastric Tube Present Illness HPI 58-year-old male with chronic respiratory failure, trach/vent/ brought in by EMS after increased drainage from his G-tube site. Patient had previously been noted to have a G-tube placement. Patient had multiple chronic medical problems is chronically debilitated. History is obtained from EMS. The patient was noted to be nonverbal. Allergies: Coded Allergies: No Known Allergies (Unverified , 03/07/17) Medication History Scheduled Amino Acids/Protein Hydrolys (Pro-Stat Liquid), 30 ML ORAL THREE TIMES A DAY, ( Reported) Amiodarone Hcl (Amiodarone Hcl), 200 MG GT DAILY, (Reported) Ascorbic Acid* (Vitamin C*), 500 MG GT DAILY, (Reported) Carvedilol* (Carvedilol*), 6.25 MG GT EVERY 12 HOURS, (Reported) Cran/Vitc/Mannose/Inulin/Brom (Uti-Stat Liquid), 30 ML GT THREE TIMES A DAY, ( Reported) Docusate Sodium* (Docusate Sodium*), 100 MG GT DAILY, (Reported) Epoetin Rehan (Epogen), 10,000 UNIT SUBQ 3XW, (Reported) Folic Acid* (Folic Acid*), 1 MG GT DAILY, (Reported) Heparin Sod (Porcine) (Heparin Sodium*), 5,000 UNITS SUBQ EVERY 12 HOURS, ( Reported) Levetiracetam (Keppra), 500 MG GT Q12HR Multivitamin With Minerals (Multivitamins With Minerals*), 1 TAB GT DAILY, ( Reported) Omeprazole (Omeprazole), 40 MG GT DAILY, (Reported) Tramadol Hcl* (Ultram*), 50 MG GT DAILY, (Reported) Zinc Sulfate (Zinc Sulfate*), 220 MG GT DAILY, (Reported) Scheduled PRN Acetaminophen* (Acetaminophen 325MG Tablet*), 650 MG GT Q4H PRN for TEMP > 101F OR MILD PAIN, (Reported) Albuterol Sulfate* (Albuterol Sulfate Hhn*), 3 ML INH Q3HR PRN for Shortness of Breath, (Reported) Hydrocodone Bit/Acetaminophen 5-325* ([place] 5-325 Tablet*), 1 TAB GT Q4H PRN for Moderate Pain (Pain Scale 4-6), (Reported) Ipratropium/Albuterol Sulfate (DuoNeb 0.5-3(2.5)mg/3ml), 3 ML HHN Q3HR PRN for Shortness of Breath, (Reported) Ipratropium/Albuterol Sulfate (DuoNeb 0.5-3(2.5)mg/3ml), 3 ML HHN Q6HR PRN for Shortness of Breath, (Reported) Lorazepam* (Ativan*), 0.5 MG GT Q6HR PRN for For Anxiety, (Reported) Ondansetron* (Zofran*), 4 MG GT Q6H PRN for Nausea & Vomiting, (Reported) Polyethylene Glycol 3350* (Miralax*), 17 GM GT DAILY PRN for Constipation, ( Reported) Discontinued Medications Carvedilol* (Carvedilol*), 3.125 MG ORAL EVERY 12 HOURS, (Reported) Discontinued Reason: Prescription changed Chlorhexidine Gluconate (Chlorhexidine Gluconate), 15 ML TP, (Reported) Discontinued Reason: Pt stopped taking med Cran/Vitc/Mannose/Inulin/Brom (Uti-Stat Liquid), 30 ML GT TID, (Reported) Discontinued Reason: Pt stopped taking med Lorazepam* (Ativan*), 0.5 MG GT PRN, (Reported) Discontinued Reason: MD discontinued med Patient History Healthcare decision maker Resuscitation status Full Code Advanced Directive on File Past Medical/Surgical History Past Medical/Surgical History: (1) AICD (automatic cardioverter/defibrillator) present (2) Ventilator dependence (3) VT (ventricular tachycardia) (4) Chronic respiratory acidosis (5) Feeding by G-tube Review of Systems All Other Systems: negative except mentioned in HPI Physical Exam General Appearance: WD/WN, no apparent distress, cachetic Lines, tubes and drains: peripheral HEENT: normocephalic, atraumatic Neck: non-tender, normal alignment Respiratory/Chest: chest wall non-tender, lungs clear Cardiovascular/Chest: normal peripheral pulses, normal rate Abdomen: normal bowel sounds, non tender Genitourinary/Rectal: normal genital exam, heme negative stool Extremities: normal range of motion Last 24 Hour Vital Signs Date Time Temp Pulse Resp B/P (MAP) Pulse Ox O2 Delivery O2 Flow Rate FiO2 05/03/18 12:46 110 18 40 6/17/18 12:00 97.5 115 16 94/68 100 Mechanical Ventilator 40 97.5 617/18 12:00 40 617/18 11:19 97.7 111 18 91/58 100 Mechanical Ventilator 40 97.7 617/18 11:04 111 18 40 617/18 10:41 115 18 100 Mechanical Ventilator 40 617/18 10:30 40 617/18 10:30 114 18 100 Mechanical Ventilator 40 617/18 09:13 114 18 40 617/18 09:00 112 92/68 617/18 07:29 111 18 40 617/18 04:44 108 18 40 617/18 04:43 110 17 Mechanical Ventilator 40 05/03/18 04:00 100 17/18 04:00 98.2 107 18 92/68 100 Mechanical Ventilator 40 98.2 111 17/18 04:00 40 17/18 03:14 100 16 40 05/03/18 03:11 98 20 Mechanical Ventilator 40 05/03/18 01:46 112 17/18 01:30 17 93/64 100 Mechanical Ventilator 35 17/18 01:25 107 24 40 6/17/18 01:25 107 23 Mechanical Ventilator 40 17/18 01:20 98.2 104 19 98/68 100 Mechanical Ventilator 40 98.2 16/18 23:53 98.2 104 19 98/68 100 Mechanical Ventilator 40 98.2 16/18 23:30 40 616/18 23:24 103 16 40 616/18 23:22 103 16 Mechanical Ventilator 40 616/18 22:25 105 19 Mechanical Ventilator 40 616/18 22:25 105 19 60 6/16/18 21:36 97.0 106 16 110/68 100 Mechanical Ventilator 60 97.0 16/18 19:35 109 16 Mechanical Ventilator 60 6/16/18 19:31 97.0 109 16 101/66 100 Mechanical Ventilator 60 97.0 616/18 19:31 60 6/16/18 18:25 110 16 60 6/16/18 18:25 110 16 Mechanical Ventilator 60 6/16/18 18:00 97.0 113 16 104/88 100 Mechanical Ventilator 97.0 16/18 17:20 97.0 113 21 94/61 100 Mechanical Ventilator 97.0 Intake and Output 05/02/18 05/03/18 19:00 07:00 Intake Total 1942.5 ml Output Total 500 ml Balance 1442.5 ml Intake IV Total 1942.5 ml Output Urine Total 500 ml # Voids 1 Laboratory Tests Test 05/02/18 18:19 05/02/18 19:00 05/02/18 19:15 05/03/18 05:18 Arterial Blood pH 7.484 (7.350-7.450) Arterial Blood Partial Pressure CO2 30.4 mmHg (35.0-45.0) L Arterial Blood Partial Pressure O2 329.8 mmHg (75.0-100.0) H Arterial Blood HCO3 22.3 mmol/L (22.0-26.0) Arterial Blood Oxygen Saturation 99.4 % (92.0-98.0) H Arterial Blood Base Excess -0.5 Son Test Positive Urine Color Yellow Urine Appearance Clear Urine pH 8 (4.5-8.0) Urine Specific [place] 1.010 (1.005-1.035) Urine Protein 3+ (NEGATIVE) H Urine Glucose (UA) Negative (NEGATIVE) Urine Ketones Negative (NEGATIVE) Urine Occult Blood 3+ (NEGATIVE) H Urine Nitrite Negative (NEGATIVE) Urine Bilirubin Negative (NEGATIVE) Urine Urobilinogen Normal MG/DL (0.0-1.0) Urine Leukocyte Esterase 2+ (NEGATIVE) H Urine RBC 5-10 /HPF (0 - 0) H Urine WBC 2-4 /HPF (0 - 0) Urine Squamous Epithelial Cells None /LPF (NONE/OCC) Urine Calcium Oxalate Crystals Occasional /LPF (NONE) Urine Bacteria Few /HPF (NONE) White Blood Count 13.1 K/UL (4.8-10.8) H 11.4 K/UL (4.8-10.8) H Red Blood Count 3.97 M/UL (4.70-6.10) L 3.28 M/UL (4.70-6.10) L Hemoglobin 10.7 G/DL (14.2-18.0) L 9.0 G/DL (14.2-18.0) L Hematocrit 34.6 % (42.0-52.0) L 28.9 % (42.0-52.0) L Mean Corpuscular Volume 87 FL (80-99) 88 FL (80-99) Mean Corpuscular Hemoglobin 26.9 PG (27.0-31.0) L 27.5 PG (27.0-31.0) Mean Corpuscular Hemoglobin Concent 30.9 G/DL (32.0-36.0) L 31.2 G/DL (32.0-36.0) L Red Cell Distribution Width 14.8 % (11.6-14.8) 15.6 % (11.6-14.8) H Platelet Count 527 K/UL (150-450) H 482 K/UL (150-450) H Mean Platelet Volume 5.3 FL (6.5-10.1) L 5.2 FL (6.5-10.1) L Neutrophils (%) (Auto) 71.5 % (45.0-75.0) 65.3 % (45.0-75.0) Lymphocytes (%) (Auto) 13.2 % (20.0-45.0) L 14.3 % (20.0-45.0) L Monocytes (%) (Auto) 9.7 % (1.0-10.0) 12.1 % (1.0-10.0) H Eosinophils (%) (Auto) 4.8 % (0.0-3.0) H 7.8 % (0.0-3.0) H Basophils (%) (Auto) 0.8 % (0.0-2.0) 0.6 % (0.0-2.0) Prothrombin Time 12.3 SEC (9.30-11.50) H 12.1 SEC (9.30-11.50) H Prothromb Time International Ratio 1.2 (0.9-1.1) H 1.2 (0.9-1.1) H Activated Partial Thromboplast Time 34 SEC (23-33) H 36 SEC (23-33) H Sodium Level 136 MMOL/L (136-145) 137 MMOL/L (136-145) Potassium Level 4.4 MMOL/L (3.5-5.1) 3.8 MMOL/L (3.5-5.1) Chloride Level 103 MMOL/L (98-107) 105 MMOL/L (98-107) Carbon Dioxide Level 21 MMOL/L (21-32) 23 MMOL/L (21-32) Anion Gap 12 mmol/L (5-15) 9 mmol/L (5-15) Blood Urea Nitrogen 34 mg/dL (7-18) H 30 mg/dL (7-18) H Creatinine 1.1 MG/DL (0.55-1.30) 0.9 MG/DL (0.55-1.30) Estimat Glomerular Filtration Rate > 60 mL/min (>60) > 60 mL/min (>60) Glucose Level 102 MG/DL (74-106) 107 MG/DL (74-106) H Lactic Acid Level 1.80 mmol/L (0.4-2.0) Calcium Level 8.4 MG/DL (8.5-10.1) L 8.2 MG/DL (8.5-10.1) L Phosphorus Level 3.7 MG/DL (2.5-4.9) Magnesium Level 2.0 MG/DL (1.8-2.4) Total Bilirubin 0.2 MG/DL (0.2-1.0) 0.3 MG/DL (0.2-1.0) Aspartate Amino Transf (AST/SGOT) 16 U/L (15-37) 12 U/L (15-37) L Alanine Aminotransferase (ALT/SGPT) 13 U/L (12-78) 11 U/L (12-78) L Alkaline Phosphatase 228 U/L (46-116) H 196 U/L (46-116) H Total Creatine Kinase 28 U/L (26-308) Creatine Kinase MB 1.2 NG/ML (0.0-3.6) Creatine Kinase MB Relative Index 4.2 Troponin I 0.000 ng/mL (0.000-0.056) Pro-B-Type Natriuretic Peptide 2078 pg/mL (0-125) H Total Protein 7.6 G/DL (6.4-8.2) 6.8 G/DL (6.4-8.2) Albumin 1.5 G/DL (3.4-5.0) L 1.4 G/DL (3.4-5.0) L Globulin 6.1 g/dL 5.4 g/dL Albumin/Globulin Ratio 0.2 (1.0-2.7) L 0.3 (1.0-2.7) L Height (Feet): 5 Height (Inches): 7.00 Weight (Pounds): 106 Medications Current Medications Medications (Trade) Dose Ordered Sig/Tameka Route PRN Reason Start Time Stop Time Status Last Admin Dose Admin Acetaminophen (Tylenol) 650 mg Q4H PRN ORAL fever 05/02/18 22:15 06/01/18 22:14 Al Hydroxide/Mg Hydroxide (Mylanta II) 30 ml Q6H PRN ORAL dyspepsia 05/02/18 22:15 06/01/18 22:14 Albuterol/ Ipratropium (Albuterol/ Ipratropium) 3 ml EVERY 8 HOURS HHN 05/03/18 06:00 05/08/18 05:59 05/03/18 10:36 Amiodarone HCl (Cordarone) 200 mg DAILY GT 05/03/18 09:00 06/02/18 08:59 05/03/18 09:23 Carvedilol (Coreg) 6.25 mg EVERY 12 HOURS GT 05/03/18 21:00 06/02/18 08:59 Cefepime HCl 1 gm/ Dextrose 110 ml @ 220 mls/hr EVERY 12 HOURS IVPB 05/03/18 21:00 05/10/18 20:59 Dextrose (Dextrose 50%) STAT PRN IV Hypoglycemia 05/02/18 22:15 06/01/18 22:14 Dextrose/Sodium Chloride 1,000 ml @ 75 mls/hr [id number] IV 05/02/18 22:04 06/01/18 22:03 05/03/18 03:25 Diphenhydramine HCl (Benadryl) 25 mg Q6H PRN ORAL Itching/Pruritis 05/02/18 22:15 06/01/18 22:14 Levetiracetam (Keppra) 500 mg Q12HR GT 05/03/18 09:00 06/02/18 08:59 05/03/18 09:24 Metronidazole 100 ml @ 100 mls/hr Q8HR IVPB 05/03/18 14:00 05/10/18 13:59 Morphine Sulfate (Morphine Sulfate) 2 mg Q4H PRN IVP Severe Pain (Pain Scale 7-10) 05/03/18 08:15 05/10/18 08:14 Nitroglycerin (Ntg) 0.4 mg Q5M X 3 DOSES PRN SL Prn Chest Pain 05/02/18 22:15 06/01/18 22:14 Ondansetron HCl (Zofran) 4 mg Q6H PRN IVP Nausea & Vomiting 05/02/18 22:15 06/01/18 22:14 Polyethylene Glycol (Miralax) 17 gm HSPRN PRN ORAL Constipation 05/02/18 22:15 06/01/18 22:14 Assessment/Plan Problem List: (1) Malfunction of gastrostomy tube ICD Codes: K94.23 - Gastrostomy malfunction SNOMED: 430292156 (2) Sepsis ICD Codes: A41.9 - Sepsis, unspecified organism SNOMED: 57424544 (3) Chronic respiratory acidosis ICD Codes: E87.2 - Acidosis SNOMED: 5731100 (4) Pressure ulcer, hip, left, unstageable ICD Codes: L89.220 - Pressure ulcer of left hip, unstageable SNOMED: 358806412 (5) Cerebral vascular disease ICD Codes: I67.9 - Cerebrovascular disease, unspecified SNOMED: 78575397 (6) EF of 30 (7) AICD (automatic cardioverter/defibrillator) present ICD Codes: Z95.810 - Presence of automatic (implantable) cardiac defibrillator SNOMED: 33112059, 867633852 (8) Feeding by G-tube ICD Codes: Z93.1 - Gastrostomy status SNOMED: 708758129, 279807299 Assessment/Plan hold feeding GI consult Iv fluids check electrolytes wound consult surgical evaluation. dvt prophylaxis Shani Moses MD May 03, 2018 13:53
[2018-05-03 20:16] VITALS: BP 94/62
[2018-05-03] MEDS ORDERED: Cefepime HCl 1 GM in D5W 55 ML IVPB SCH (21:00)
[2018-05-03] MEDS: Carvedilol 6.25mg Tab GT SCH (21:00)
[2018-05-03] MEDS: Cefepime HCl 1 GM in D5W 110 ML IVPB SCH (21:12)
[2018-05-04] VITALS: BP 119/74
[2018-05-04] MEDS: D5 1/2NS 1,000 ML IV SCH ×2 (00:40→14:20)
[2018-05-04 04:00] VITALS: BP 110/69
[2018-05-04] MEDS: Albuterol/Ipratropium 3ml neb HHN SCH ×3 (07:16→23:51)
[2018-05-04 08:00] VITALS: BP 121/83
[2018-05-04] MEDS: Cefepime HCl 1 GM in D5W 110 ML IVPB SCH ×2 (09:27→20:47)
[2018-05-04] MEDS: levETIRAcetam 500mg/5ml Liquid GT SCH ×2 (09:27→21:40)
[2018-05-04] MEDS: Carvedilol 6.25mg Tab GT SCH ×2 (09:27→21:40)
[2018-05-04] MEDS: Amiodarone 200mg tab GT SCH (09:28)
--- NOTE | 2018-05-04 10:13 | Cardiology Report ---
APPROVED REPORT EKG Measurement Heart [id number] ID [id number] Sinus tachycardia Rightward axis Septal infarct, age undetermined Abnormal ECG
--- NOTE | 2018-05-04 10:47 | GI Initial Consult Note ---
History of Present Illness General Date patient seen: May 04, 2018 Time patient seen: 10:45 Reason for Hospitalization: Malfunctioning Gastric Tube Referring physician: ODETTE FINK Present Illness HPI Patient's 58-year-old male brought in by EMS after increased drainage from his G -tube site. Patient had previously been noted to have a G-tube placement. Patient had multiple chronic medical problems is chronically debilitated. History is obtained from EMS. The patient was noted to be nonverbal. He is tracheostomy dependent. GI consulted for GT site drainage. ROS limited, pt seen awake alert NAD with no active s/sx of N/V/D. GT site assessed with noted gastric mitchell around the site and abdomen. Purulent odor and drainage from the GT site. Black appearing scab, actually old gauze that was never changed. GT appears to be in place, however has been cared for very poorly. Other HPI as noted above. Home Meds Active Scripts Levetiracetam (Keppra) 100 Mg/1 Ml Solution, 500 MG GT Q12HR for 60 Days, #60 CAP Prov:Odette Moses MD 06/02/17 Reported Medications Ipratropium/Albuterol Sulfate (DuoNeb 0.5-3(2.5)mg/3ml) 3 Ml Ampul.neb, 3 ML HHN Q6HR PRN for Shortness of Breath, EA 05/03/18 Ipratropium/Albuterol Sulfate (DuoNeb 0.5-3(2.5)mg/3ml) 3 Ml Ampul.neb, 3 ML HHN Q3HR PRN for Shortness of Breath, EA 05/03/18 Lorazepam* (ATIVAN*) 0.5 Mg Tablet, 0.5 MG GT Q6HR PRN for For Anxiety, TAB 05/03/18 Cran/Vitc/Mannose/Inulin/Brom (UTI-STAT LIQUID) 3,875 Mg/30 Ml Liquid, 30 ML GT THREE TIMES A DAY, ML 05/02/18 Epoetin Rehan (EPOGEN) 20,000 Unit/2 Ml Vial, 39985 UNIT SUBQ 3XW, VIAL 05/02/18 Carvedilol* (CARVEDILOL*) 6.25 Mg Tablet, 6.25 MG GT EVERY 12 HOURS, TAB 05/02/18 Ondansetron* (ZOFRAN*) 4 Mg Tablet, 4 MG GT Q6H PRN for Nausea & Vomiting, TAB 02/17/18 Zinc Sulfate (ZINC SULFATE*) 220 Mg Capsule, 220 MG GT DAILY, CAP 0 Refills 02/17/18 Acetaminophen* (ACETAMINOPHEN 325MG TABLET*) 325 Mg Tablet, 650 MG GT Q4H PRN for TEMP > 101F OR MILD PAIN, TAB 02/17/18 Amino Acids/Protein Hydrolys (PRO-STAT LIQUID) 30 Ml Liquid.pkt, 30 ML ORAL THREE TIMES A DAY, ML 11/28/17 Docusate Sodium* (DOCUSATE SODIUM*) 100 Mg Capsule, 100 MG GT DAILY, CAP 11/28/17 Albuterol Sulfate* (ALBUTEROL SULFATE HHN*) 2.5 Mg/3 Ml Vial.neb, 3 ML INH Q3HR PRN for Shortness of Breath, EA 11/28/17 Ascorbic Acid* (VITAMIN C*) 500 Mg Tablet, 500 MG GT DAILY, #30 TAB 0 Refills 09/01/17 Tramadol Hcl* (ULTRAM*) 50 Mg Tablet, 50 MG GT DAILY for For Pain, #30 TAB 0 Refills 09/01/17 Multivitamin With Minerals (MULTIVITAMINS WITH MINERALS*) 1 Each Tablet, 1 TAB GT DAILY, TAB 09/01/17 Hydrocodone Bit/Acetaminophen 5-325* (NORCO 5-325 TABLET*) 1 Each Tablet, 1 TAB GT Q4H PRN for Moderate Pain (Pain Scale 4-6) 09/01/17 Polyethylene Glycol 3350* (MIRALAX*) 17 Gm Powd.pack, 17 GM GT DAILY PRN for Constipation, PACKET 09/01/17 Folic Acid* (FOLIC ACID*) 1 Mg Tablet, 1 MG GT DAILY, TAB 06/23/17 Heparin Sod (Porcine) (HEPARIN SODIUM*) 5 000/1 Ml Vial, 5000 UNITS SUBQ EVERY 12 HOURS, VIAL 06/12/17 Omeprazole (OMEPRAZOLE) 40 Mg Capsule.dr, 40 MG GT DAILY, CAP 03/07/17 Amiodarone Hcl (AMIODARONE HCL) 100 Mg Tablet, 200 MG GT DAILY, TAB 03/07/17 Discontinued Reported Medications Carvedilol* (CARVEDILOL*) 3.125 Mg Tablet, 3.125 MG ORAL EVERY 12 HOURS for HOLD IF SBP<100 OR HR<60 04/17/18 Cran/Vitc/Mannose/Inulin/Brom (UTI-STAT LIQUID) 3,875 Mg/30 Ml Liquid, 30 ML GT TID 02/17/18 Chlorhexidine Gluconate (CHLORHEXIDINE GLUCONATE) 118 Ml Liquid, 15 ML TP, ML 09/01/17 Lorazepam* (ATIVAN*) 0.5 Mg Tablet, 0.5 MG GT PRN for ANXIETY, TAB 09/01/17 Med list reviewed/reconciled: Yes Allergies: Coded Allergies: No Known Allergies (Unverified , 03/07/17) Patient History Limited by: medical condition History Provided By: Medical Record PMH Narrative Past Medical History: see triage record Reviewed Nursing Documentation: PMH: Agreed; PSxH: Agreed Nursing Documentation-PMH Hx Cardiac Problems: Yes - Afib; Cardiomyapathy. rheumatic tricuspid valve disease Hx Hypertension: Yes - Anemia, vtach, hypotension Hx Pacemaker: Yes - Defibrillator implant Hx COPD: Yes - Resp failure, vent dep.. PNA, acidosis, sepsis, proteinuria Hx Diabetes: No - Failure to thrive Hx Cancer: No - Sepsis Hx Gastrointestinal Problems: Yes - GT; Cirrhosis, dysphagia, tracheostomy, GERD, cirrhosis, ascites Hx Neurological Problems: Yes - ENCEPHALOPATHY, muscle weakness, Hx Cerebrovascular Accident: Yes - breakdown of cardiac pulse generator ( battery) Hx Transient Ischemic Attacks: Yes Hx Dementia: Yes Hx Seizures: Yes Review of Systems All Other Systems: limited Physical Exam Vital Signs Date Time Temp Pulse Resp B/P (MAP) Pulse Ox O2 Delivery O2 Flow Rate FiO2 05/02/18 17:20 97.0 113 21 94/61 100 Mechanical Ventilator 97.0 05/02/18 18:25 60 Sp02 EP Interpretation: reviewed, normal General Appearance: well appearing, no apparent distress, alert, thin Head: normocephalic EENT: PERRL/EOMI, normal ENT inspection Neck: supple Respiratory: normal breath sounds, no respiratory distress, other - trach to vent Cardiovascular: normal rate Gastrointestinal: other - see HPI Rectal: deferred Genitourinary: deferred Musculoskeletal: normal inspection, back normal Neurologic: alert, responsive Skin: normal inspection, normal color, no rash, warm/dry, palpation normal, well hydrated Lymphatic: normal inspection, no adenopathy Current Medications Current Medications Medications (Trade) Dose Ordered Sig/Tameka Route PRN Reason Start Time Stop Time Status Last Admin Dose Admin Acetaminophen (Tylenol) 650 mg Q4H PRN ORAL fever 05/02/18 22:15 06/01/18 22:14 05/03/18 22:43 Al Hydroxide/Mg Hydroxide (Mylanta II) 30 ml Q6H PRN ORAL dyspepsia 05/02/18 22:15 06/01/18 22:14 Albuterol/ Ipratropium (Albuterol/ Ipratropium) 3 ml EVERY 8 HOURS HHN 05/03/18 06:00 05/08/18 05:59 05/04/18 07:16 Amiodarone HCl (Cordarone) 200 mg DAILY GT 05/03/18 09:00 06/02/18 08:59 05/04/18 09:28 Carvedilol (Coreg) 6.25 mg EVERY 12 HOURS GT 05/03/18 21:00 06/02/18 08:59 05/04/18 09:27 Cefepime HCl 1 gm/ Dextrose 110 ml @ 220 mls/hr EVERY 12 HOURS IVPB 05/03/18 21:00 05/10/18 20:59 05/04/18 09:27 Dextrose (Dextrose 50%) STAT PRN IV Hypoglycemia 05/02/18 22:15 06/01/18 22:14 Dextrose/Sodium Chloride 1,000 ml @ 75 mls/hr [id number] IV 05/02/18 22:04 06/01/18 22:03 05/04/18 00:40 Diphenhydramine HCl (Benadryl) 25 mg Q6H PRN ORAL Itching/Pruritis 05/02/18 22:15 06/01/18 22:14 Levetiracetam (Keppra) 500 mg Q12HR GT 05/03/18 09:00 06/02/18 08:59 05/04/18 09:27 Metronidazole 100 ml @ 100 mls/hr Q8HR IVPB 05/03/18 14:00 05/10/18 13:59 05/04/18 06:32 Morphine Sulfate (Morphine Sulfate) 2 mg Q4H PRN IVP Severe Pain (Pain Scale 7-10) 05/03/18 08:15 05/10/18 08:14 Nitroglycerin (Ntg) 0.4 mg Q5M X 3 DOSES PRN SL Prn Chest Pain 05/02/18 22:15 06/01/18 22:14 Ondansetron HCl (Zofran) 4 mg Q6H PRN IVP Nausea & Vomiting 05/02/18 22:15 06/01/18 22:14 Polyethylene Glycol (Miralax) 17 gm HSPRN PRN ORAL Constipation 05/02/18 22:15 06/01/18 22:14 GI: Plan Problems: (1) G-tube site cellulitis (2) Gastrostomy tube skin breakdown (3) Feeding by G-tube (4) Malfunction of gastrostomy tube (5) Anemia Plan very poorly cared for GT site abdominal gastric acid burn from leaking GT macerated abdominal skin GT removed today, will allow for wound to heal. NPO + IVFs >> will consider NGT tomorrow. GT site care >> requires TID/prn wound care dressing GTFs per RD prn transfusions ppi abx fu labs Discussed with Dr. Alex. Thank you for this patient referral, we will follow. The patient was seen and examined at bedside and all new and available data was reviewed in the patients chart. I agree with the above findings, impression and plan. (Patient seen earlier today. Signature stamp does not reflect patient encounter time.). - MD Shala Braga AnhKhris OFFICE ADMIN May 04, 2018 10:47
--- NOTE | 2018-05-04 11:39 | Pulmonolgy Critical Care Note ---
Critical Care - Asmt/Plan Problems: (1) G-tube site cellulitis (2) Gastrostomy tube skin breakdown (3) Ventilator dependence (4) Sacral decubitus ulcer, stage IV (5) AICD (automatic cardioverter/defibrillator) present (6) EF of 30 (7) Pressure ulcer, hip, left, unstageable Respiratory: monitor respiratory rate, adjust FIO2, CXR Cardiac: stop pressors, continue to monitor HR/BP Renal: F/U I&O Infectious Disease: check cultures, continue antibiotics Gastrointestinal: continue feedings/current rate Endocrine: monitor blood sugar, check HgA1C, continue sliding scale insulin Hematologic: transfuse if hgb<8.5 Neurologic: PRN Ativan, PRN Morphine, keep patient comfortable Prophylaxis: Protonix Notes Reviewed: cardio Discussed with: nurses, consultants, bilingual case managermarketing finance manager - Objective Last 24 Hour Vital Signs Date Time Temp Pulse Resp B/P (MAP) Pulse Ox O2 Delivery O2 Flow Rate FiO2 05/04/18 11:17 93 17 40 05/04/18 09:27 111 121/83 05/04/18 09:19 107 20 40 05/04/18 08:00 98.1 111 19 121/83 100 Mechanical Ventilator 40 98.1 05/04/18 08:00 104 05/04/18 08:00 40 05/04/18 07:27 97 20 100 Mechanical Ventilator 40 05/04/18 07:18 40 05/04/18 07:17 97 18 100 Mechanical Ventilator 40 05/04/18 07:15 97 18 40 05/04/18 05:30 107 19 40 05/04/18 04:07 40 05/04/18 04:00 98.1 105 17 110/69 100 Mechanical Ventilator 40 98.1 05/04/18 04:00 102 05/04/18 03:30 108 16 40 05/04/18 01:30 107 15 40 05/04/18 00:00 99.0 110 18 119/74 100 Mechanical Ventilator 40 99.0 05/04/18 00:00 108 05/03/18 23:44 112 18 100 Mechanical Ventilator 40 05/03/18 23:43 110 17 98 Mechanical Ventilator 40 05/03/18 23:43 40 05/03/18 23:30 110 20 40 05/03/18 21:30 107 23 40 05/03/18 21:00 108 94/62 05/03/18 20:16 97.2 108 17 94/62 100 Mechanical Ventilator 40 97.2 05/03/18 20:00 40 05/03/18 20:00 108 05/03/18 19:30 105 18 40 05/03/18 16:58 109 22 40 05/03/18 16:00 112 05/03/18 16:00 40 05/03/18 14:50 109 18 100 Mechanical Ventilator 40 05/03/18 14:49 100 18 40 05/03/18 14:40 40 05/03/18 14:40 100 18 100 Mechanical Ventilator 40 05/03/18 12:46 110 18 40 05/03/18 12:00 97.5 115 16 94/68 100 Mechanical Ventilator 40 97.5 05/03/18 12:00 112 05/03/18 12:00 40 Status: awake Condition: critical Lungs: chest wall tender Heart: regular Abdomen: active bowel sounds Extremities: no C/C/E Decubiti: stage Micro: Microbiology Date/Time Source Procedure Growth Status 05/02/18 19:40 Blood Blood Culture - Preliminary NO GROWTH AFTER 24 HOURS Resulted 05/02/18 19:20 Blood Blood Culture - Preliminary NO GROWTH AFTER 24 HOURS Resulted 05/03/18 02:00 Wound Gram Stain Pending Resulted 05/03/18 02:00 Wound Wound Culture - Preliminary Resulted Critical Care - Subjective ROS Limited/Unobtainable: Yes Condition: critical EKG Rhythm: Sinus Rhythm FI02: 40 Vent Support Breath Rate: 14 Vent Support Mode: AC Vent Tidal Volume: 600 Sputum Amount: Small PEEP: 5.0 PIP: 25 I&O: Intake and Output 05/03/18 05/04/18 19:00 07:00 Intake Total 75 ml 1260 ml Output Total 350 ml 300 ml Balance -275 ml 960 ml Intake IV Total 75 ml 1260 ml Output Urine Total 350 ml 300 ml CXR: no change Shani Moses MD May 04, 2018 11:39
--- NOTE | 2018-05-04 11:53 | Internal Med Progress Note ---
Subjective Date of Service: May 04, 2018 Physician Name SolisAaron Attending Physician Roland Box MD Current Medications Medications (Trade) Dose Ordered Sig/Tameka Route PRN Reason Start Time Stop Time Status Last Admin Dose Admin Acetaminophen (Tylenol) 650 mg Q4H PRN ORAL fever 05/02/18 22:15 06/01/18 22:14 05/03/18 22:43 Al Hydroxide/Mg Hydroxide (Mylanta II) 30 ml Q6H PRN ORAL dyspepsia 05/02/18 22:15 06/01/18 22:14 Albuterol/ Ipratropium (Albuterol/ Ipratropium) 3 ml EVERY 8 HOURS HHN 05/03/18 06:00 05/08/18 05:59 05/04/18 07:16 Amiodarone HCl (Cordarone) 200 mg DAILY GT 05/03/18 09:00 06/02/18 08:59 05/04/18 09:28 Carvedilol (Coreg) 6.25 mg EVERY 12 HOURS GT 05/03/18 21:00 06/02/18 08:59 05/04/18 09:27 Cefepime HCl 1 gm/ Dextrose 110 ml @ 220 mls/hr EVERY 12 HOURS IVPB 05/03/18 21:00 05/10/18 20:59 05/04/18 09:27 Dextrose (Dextrose 50%) STAT PRN IV Hypoglycemia 05/02/18 22:15 06/01/18 22:14 Dextrose/Sodium Chloride 1,000 ml @ 75 mls/hr [id number] IV 05/02/18 22:04 06/01/18 22:03 05/04/18 00:40 Diphenhydramine HCl (Benadryl) 25 mg Q6H PRN ORAL Itching/Pruritis 05/02/18 22:15 06/01/18 22:14 Levetiracetam (Keppra) 500 mg Q12HR GT 05/03/18 09:00 06/02/18 08:59 05/04/18 09:27 Metronidazole 100 ml @ 100 mls/hr Q8HR IVPB 05/03/18 14:00 05/10/18 13:59 05/04/18 06:32 Morphine Sulfate (Morphine Sulfate) 2 mg Q4H PRN IVP Severe Pain (Pain Scale 7-10) 05/03/18 08:15 05/10/18 08:14 Nitroglycerin (Ntg) 0.4 mg Q5M X 3 DOSES PRN SL Prn Chest Pain 05/02/18 22:15 06/01/18 22:14 Ondansetron HCl (Zofran) 4 mg Q6H PRN IVP Nausea & Vomiting 05/02/18 22:15 06/01/18 22:14 Polyethylene Glycol (Miralax) 17 gm HSPRN PRN ORAL Constipation 05/02/18 22:15 06/01/18 22:14 Allergies: Coded Allergies: No Known Allergies (Unverified , 03/07/17) ROS Limited/Unobtainable: Yes Subjective 58 YO M admitted with infected gastrostomy tube site. Cover for Int Med-Dr Box. LIGIA. Vent dependent on trach Objective Last Vital Signs Date Time Temp Pulse Resp B/P (MAP) Pulse Ox O2 Delivery O2 Flow Rate FiO2 05/04/18 11:17 93 17 40 05/04/18 09:27 121/83 05/04/18 08:00 98.1 100 Mechanical Ventilator 98.1 General Appearance: alert, mild distress, thin EENT: PERRL/EOMI, normal ENT inspection Neck: non-tender, normal alignment, supple Cardiovascular: normal peripheral pulses, normal rate, regular rhythm, no gallop/murmur, no JVD Respiratory/Chest: respiratory distress, crackles/rales, rhonchi - bilaterally , expiratory wheezing Abdomen: normal bowel sounds, non tender, soft, no organomegaly, no mass Extremities: normal inspection 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 Skin: normal pigmentation, warm/dry, other - G-tube site cellulitis Microbiology Date/Time Source Procedure Growth Status 05/02/18 19:40 Blood Blood Culture - Preliminary NO GROWTH AFTER 24 HOURS Resulted 05/02/18 19:20 Blood Blood Culture - Preliminary NO GROWTH AFTER 24 HOURS Resulted 05/03/18 02:00 Wound Gram Stain - Final Resulted 05/03/18 02:00 Wound Wound Culture - Preliminary Resulted Intake and Output 05/03/18 05/04/18 19:00 07:00 Intake Total 75 ml 1260 ml Output Total 350 ml 300 ml Balance -275 ml 960 ml Intake IV Total 75 ml 1260 ml Output Urine Total 350 ml 300 ml Assessment/Plan Problem List: (1) HTN (hypertension) Assessment & Plan: Cont coreg (2) Anoxic brain injury (3) Gastrostomy tube skin breakdown (4) G-tube site cellulitis Assessment & Plan: Continue flagyl and cefepime per ID (5) Sacral decubitus ulcer, stage IV (6) Tracheostomy care (7) Chronic respiratory failure Assessment & Plan: Vent dep. See pulmonary note. (8) Seizure disorder Assessment & Plan: Continue keppra (9) Atrial fibrillation Assessment & Plan: Continue amiodarone per cardiology (10) CHF (congestive heart failure) Assessment & Plan: See cardiology note. (11) Diabetes mellitus type II, uncontrolled (12) Cerebral vascular disease (13) Feeding by G-tube Status: not improved Aaron Solis MD May 04, 2018 11:53
[2018-05-04 12:00] VITALS: BP 96/57
[2018-05-04] MEDS ORDERED: D5NS 1000ml IV ONE (15:43)
[2018-05-04 16:00] VITALS: BP 105/67
--- NOTE | 2018-05-04 19:47 | Consultation ---
History of Present Illness General Date patient seen: May 04, 2018 Chief Complaint: Malfunctioning Gastric Tube Referring physician: ODETTE FINK Present Illness HPI Present Illness HPI Patient's 58-year-old male brought in by EMS after increased drainage from his G -tube site. Patient had previously been noted to have a G-tube placement. Patient had multiple chronic medical problems is chronically debilitated. History is obtained from EMS. The patient was noted to be nonverbal. He is tracheostomy dependent. Allergies: Coded Allergies: No Known Allergies (Unverified , 03/07/17) Patient History Past Medical History: see triage record Reviewed Nursing Documentation: PMH: Agreed; PSxH: Agreed Nursing Documentation-PMH Hx Cardiac Problems: Yes - Afib; Cardiomyapathy. rheumatic tricuspid valve disease Hx Hypertension: Yes - Anemia, vtach, hypotension Hx Pacemaker: Yes - Defibrillator implant Hx COPD: Yes - Resp failure, vent dep.. PNA, acidosis, sepsis, proteinuria Hx Diabetes: No - Failure to thrive Hx Cancer: No - Sepsis Hx Gastrointestinal Problems: Yes - GT; Cirrhosis, dysphagia, tracheostomy, GERD, cirrhosis, ascites Hx Neurological Problems: Yes - ENCEPHALOPATHY, muscle weakness, Hx Cerebrovascular Accident: Yes - breakdown of cardiac pulse generator ( battery) Hx Transient Ischemic Attacks: Yes Hx Dementia: Yes Hx Seizures: Yes Allergies: Coded Allergies: No Known Allergies (Unverified , 03/07/17) Medication History Scheduled Amino Acids/Protein Hydrolys (Pro-Stat Liquid), 30 ML ORAL THREE TIMES A DAY, ( Reported) Amiodarone Hcl (Amiodarone Hcl), 200 MG GT DAILY, (Reported) Ascorbic Acid* (Vitamin C*), 500 MG GT DAILY, (Reported) Carvedilol* (Carvedilol*), 6.25 MG GT EVERY 12 HOURS, (Reported) Cran/Vitc/Mannose/Inulin/Brom (Uti-Stat Liquid), 30 ML GT THREE TIMES A DAY, ( Reported) Docusate Sodium* (Docusate Sodium*), 100 MG GT DAILY, (Reported) Epoetin Rehan (Epogen), 10,000 UNIT SUBQ 3XW, (Reported) Folic Acid* (Folic Acid*), 1 MG GT DAILY, (Reported) Heparin Sod (Porcine) (Heparin Sodium*), 5,000 UNITS SUBQ EVERY 12 HOURS, ( Reported) Levetiracetam (Keppra), 500 MG GT Q12HR Multivitamin With Minerals (Multivitamins With Minerals*), 1 TAB GT DAILY, ( Reported) Omeprazole (Omeprazole), 40 MG GT DAILY, (Reported) Tramadol Hcl* (Ultram*), 50 MG GT DAILY, (Reported) Zinc Sulfate (Zinc Sulfate*), 220 MG GT DAILY, (Reported) Scheduled PRN Acetaminophen* (Acetaminophen 325MG Tablet*), 650 MG GT Q4H PRN for TEMP > 101F OR MILD PAIN, (Reported) Albuterol Sulfate* (Albuterol Sulfate Hhn*), 3 ML INH Q3HR PRN for Shortness of Breath, (Reported) Hydrocodone Bit/Acetaminophen 5-325* ([place] 5-325 Tablet*), 1 TAB GT Q4H PRN for Moderate Pain (Pain Scale 4-6), (Reported) Ipratropium/Albuterol Sulfate (DuoNeb 0.5-3(2.5)mg/3ml), 3 ML HHN Q3HR PRN for Shortness of Breath, (Reported) Ipratropium/Albuterol Sulfate (DuoNeb 0.5-3(2.5)mg/3ml), 3 ML HHN Q6HR PRN for Shortness of Breath, (Reported) Lorazepam* (Ativan*), 0.5 MG GT Q6HR PRN for For Anxiety, (Reported) Ondansetron* (Zofran*), 4 MG GT Q6H PRN for Nausea & Vomiting, (Reported) Polyethylene Glycol 3350* (Miralax*), 17 GM GT DAILY PRN for Constipation, ( Reported) Discontinued Medications Carvedilol* (Carvedilol*), 3.125 MG ORAL EVERY 12 HOURS, (Reported) Discontinued Reason: Prescription changed Chlorhexidine Gluconate (Chlorhexidine Gluconate), 15 ML TP, (Reported) Discontinued Reason: Pt stopped taking med Cran/Vitc/Mannose/Inulin/Brom (Uti-Stat Liquid), 30 ML GT TID, (Reported) Discontinued Reason: Pt stopped taking med Lorazepam* (Ativan*), 0.5 MG GT PRN, (Reported) Discontinued Reason: discontinued med Patient History Healthcare decision maker Resuscitation status Full Code Advanced Directive on File Physical Exam Last 24 Hour Vital Signs Date Time Temp Pulse Resp B/P (MAP) Pulse Ox O2 Delivery O2 Flow Rate FiO2 05/04/18 17:10 105 22 40 05/04/18 16:11 96 18 100 Mechanical Ventilator 40 05/04/18 16:03 40 05/04/18 16:01 95 18 100 Mechanical Ventilator 40 05/04/18 16:00 95 05/04/18 16:00 99.8 94 19 105/67 100 Mechanical Ventilator 40 99.8 05/04/18 16:00 40 05/04/18 14:36 95 20 40 05/04/18 13:21 96 20 40 05/04/18 12:00 40 05/04/18 12:00 94 05/04/18 12:00 99.0 96 18 96/57 100 Mechanical Ventilator 40 99.0 05/04/18 11:17 93 17 40 05/04/18 09:27 111 121/83 05/04/18 09:19 107 20 40 05/04/18 08:00 98.1 111 19 121/83 100 Mechanical Ventilator 40 98.1 05/04/18 08:00 104 05/04/18 08:00 40 05/04/18 07:27 97 20 100 Mechanical Ventilator 40 05/04/18 07:18 40 05/04/18 07:17 97 18 100 Mechanical Ventilator 40 05/04/18 07:15 97 18 40 05/04/18 05:30 107 19 40 05/04/18 04:07 40 05/04/18 04:00 98.1 105 17 110/69 100 Mechanical Ventilator 40 98.1 05/04/18 04:00 102 05/04/18 03:30 108 16 40 05/04/18 01:30 107 15 40 05/04/18 00:00 99.0 110 18 119/74 100 Mechanical Ventilator 40 99.0 05/04/18 00:00 108 05/03/18 23:44 112 18 100 Mechanical Ventilator 40 05/03/18 23:43 110 17 98 Mechanical Ventilator 40 05/03/18 23:43 40 05/03/18 23:30 110 20 40 05/03/18 21:30 107 23 40 18 21:00 108 94/62 05/03/18 20:16 97.2 108 17 94/62 100 Mechanical Ventilator 40 97.2 05/03/18 20:00 40 6/17/18 20:00 108 Intake and Output 05/03/18 05/04/18 19:00 07:00 Intake Total 75 ml 1260 ml Output Total 350 ml 300 ml Balance -275 ml 960 ml IV Total 75 ml 1260 ml Output Urine Total 350 ml 300 ml Height (Feet): 5 Height (Inches): 7.00 Weight (Pounds): 106 Medications Current Medications Medications (Trade) Dose Ordered Sig/Tameka Route PRN Reason Start Time Stop Time Status Last Admin Dose Admin Acetaminophen (Tylenol) 650 mg Q4H PRN ORAL fever 05/02/18 22:15 06/01/18 22:14 05/03/18 22:43 Al Hydroxide/Mg Hydroxide (Mylanta II) 30 ml Q6H PRN ORAL dyspepsia 05/02/18 22:15 06/01/18 22:14 Albuterol/ Ipratropium (Albuterol/ Ipratropium) 3 ml EVERY 8 HOURS HHN 05/03/18 06:00 05/08/18 05:59 05/04/18 16:01 Amiodarone HCl (Cordarone) 200 mg DAILY GT 05/03/18 09:00 06/02/18 08:59 05/04/18 09:28 Carvedilol (Coreg) 6.25 mg EVERY 12 HOURS GT 05/03/18 21:00 06/02/18 08:59 05/04/18 09:27 Cefepime HCl 1 gm/ Dextrose 110 ml @ 220 mls/hr EVERY 12 HOURS IVPB 05/03/18 21:00 05/10/18 20:59 05/04/18 09:27 Dextrose (Dextrose 50%) STAT PRN IV Hypoglycemia 05/02/18 22:15 06/01/18 22:14 Dextrose/Sodium Chloride 1,000 ml @ 75 mls/hr [id number] IV 05/02/18 22:04 06/01/18 22:03 05/04/18 14:20 Diphenhydramine HCl (Benadryl) 25 mg Q6H PRN ORAL Itching/Pruritis 05/02/18 22:15 06/01/18 22:14 Levetiracetam (Keppra) 500 mg Q12HR GT 05/03/18 09:00 06/02/18 08:59 05/04/18 09:27 Metronidazole 100 ml @ 100 mls/hr Q8HR IVPB 05/03/18 14:00 05/10/18 13:59 05/04/18 14:20 Morphine Sulfate (Morphine Sulfate) 2 mg Q4H PRN IVP Severe Pain (Pain Scale 7-10) 05/03/18 08:15 05/10/18 08:14 Nitroglycerin (Ntg) 0.4 mg Q5M X 3 DOSES PRN SL Prn Chest Pain 05/02/18 22:15 06/01/18 22:14 Ondansetron HCl (Zofran) 4 mg Q6H PRN IVP Nausea & Vomiting 05/02/18 22:15 06/01/18 22:14 Polyethylene Glycol (Miralax) 17 gm HSPRN PRN ORAL Constipation 05/02/18 22:15 06/01/18 22:14 Radha Saini M.D. May 04, 2018 19:47
[2018-05-04 20:00] VITALS: BP 124/80
--- NOTE | 2018-05-04 20:02 | Consultation ---
History of Present Illness General Date patient seen: May 04, 2018 Chief Complaint: Malfunctioning Gastric Tube Referring physician: ODETTE FINK Present Illness HPI 58 y/o M with hx of Afib, Cardiomyopathy, HTN, Dm2, Rheumatic tricuspid valve disease, MSSA bacteremia 11/2017 (Related to necrotic sacral wound) s/p 4 weeks abx, PSA UTI, Vtach s/p AICD, FTT, PNA, COPD, Dysphagia s/p GT, chronic resp failure s/p trach/vent dependant, GERD, cirrhosis, encephalopathy/Dementia, CVA/ TIA, seizure disorder, chronic stage IV sacral decubitus ulcer, LTAC, recurrent /multiple admissions presents to ED on 05/03 with increased drainge from G-tube. Upon examination, patient was noted to have gastric mitchell around the GT site as well as purulent odor and drainage. Of note, patient last admitted 04/18-04/23 for fever and MDR PNA; treated with Bactrim, IV Amikacin, INH colistin and Meropenem. Also admitted here from 02/16-02/26 due to weakness, worsening sacral decubitus wound w/ purulent discharge. Treated with 14 days of Meropenem and 7 days of IV Vancomycin . Allergies: Coded Allergies: No Known Allergies (Unverified , 03/07/17) Medication History Scheduled Amino Acids/Protein Hydrolys (Pro-Stat Liquid), 30 ML ORAL THREE TIMES A DAY, ( Reported) Amiodarone Hcl (Amiodarone Hcl), 200 MG GT DAILY, (Reported) Ascorbic Acid* (Vitamin C*), 500 MG GT DAILY, (Reported) Carvedilol* (Carvedilol*), 6.25 MG GT EVERY 12 HOURS, (Reported) Cran/Vitc/Mannose/Inulin/Brom (Uti-Stat Liquid), 30 ML GT THREE TIMES A DAY, ( Reported) Docusate Sodium* (Docusate Sodium*), 100 MG GT DAILY, (Reported) Epoetin Rehan (Epogen), 10,000 UNIT SUBQ 3XW, (Reported) Folic Acid* (Folic Acid*), 1 MG GT DAILY, (Reported) Heparin Sod (Porcine) (Heparin Sodium*), 5,000 UNITS SUBQ EVERY 12 HOURS, ( Reported) Levetiracetam (Keppra), 500 MG GT Q12HR Multivitamin With Minerals (Multivitamins With Minerals*), 1 TAB GT DAILY, ( Reported) Omeprazole (Omeprazole), 40 MG GT DAILY, (Reported) Tramadol Hcl* (Ultram*), 50 MG GT DAILY, (Reported) Zinc Sulfate (Zinc Sulfate*), 220 MG GT DAILY, (Reported) Scheduled PRN Acetaminophen* (Acetaminophen 325MG Tablet*), 650 MG GT Q4H PRN for TEMP > 101F OR MILD PAIN, (Reported) Albuterol Sulfate* (Albuterol Sulfate Hhn*), 3 ML INH Q3HR PRN for Shortness of Breath, (Reported) Hydrocodone Bit/Acetaminophen 5-325* ([place] 5-325 Tablet*), 1 TAB GT Q4H PRN for Moderate Pain (Pain Scale 4-6), (Reported) Ipratropium/Albuterol Sulfate (DuoNeb 0.5-3(2.5)mg/3ml), 3 ML HHN Q3HR PRN for Shortness of Breath, (Reported) Ipratropium/Albuterol Sulfate (DuoNeb 0.5-3(2.5)mg/3ml), 3 ML HHN Q6HR PRN for Shortness of Breath, (Reported) Lorazepam* (Ativan*), 0.5 MG GT Q6HR PRN for For Anxiety, (Reported) Ondansetron* (Zofran*), 4 MG GT Q6H PRN for Nausea & Vomiting, (Reported) Polyethylene Glycol 3350* (Miralax*), 17 GM GT DAILY PRN for Constipation, ( Reported) Discontinued Medications Carvedilol* (Carvedilol*), 3.125 MG ORAL EVERY 12 HOURS, (Reported) Discontinued Reason: Prescription changed Chlorhexidine Gluconate (Chlorhexidine Gluconate), 15 ML TP, (Reported) Discontinued Reason: Pt stopped taking med Cran/Vitc/Mannose/Inulin/Brom (Uti-Stat Liquid), 30 ML GT TID, (Reported) Discontinued Reason: Pt stopped taking med Lorazepam* (Ativan*), 0.5 MG GT PRN, (Reported) Discontinued Reason: discontinued med Medications Narrative . PMhx: as above Shx: reviewed Fhx: non contributory Patient History Healthcare decision maker Resuscitation status Full Code Advanced Directive on File Review of Systems All Other Systems: negative except mentioned in HPI Physical Exam Physical Exam Narrative General Appearance: alert, mild distress, thin EENT: PERRL/EOMI, normal ENT inspection Neck: non-tender, normal alignment, supple Cardiovascular: normal peripheral pulses, normal rate, regular rhythm, no gallop/murmur, no JVD Respiratory/Chest: respiratory distress, crackles/rales, rhonchi - bilaterally , expiratory wheezing Abdomen: normal bowel sounds, non tender, soft, no organomegaly, no mass Extremities: 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 Skin: normal pigmentation, warm/dry, other - G-tube site cellulitis Last 24 Hour Vital Signs Date Time Temp Pulse Resp B/P (MAP) Pulse Ox O2 Delivery O2 Flow Rate FiO2 05/04/18 17:10 105 22 40 05/04/18 16:11 96 18 100 Mechanical Ventilator 40 05/04/18 16:03 40 05/04/18 16:01 95 18 100 Mechanical Ventilator 40 05/04/18 16:00 95 05/04/18 16:00 99.8 94 19 105/67 100 Mechanical Ventilator 40 99.8 05/04/18 16:00 40 05/04/18 14:36 95 20 40 05/04/18 13:21 96 20 40 05/04/18 12:00 40 05/04/18 12:00 94 05/04/18 12:00 99.0 96 18 96/57 100 Mechanical Ventilator 40 99.0 05/04/18 11:17 93 17 40 05/04/18 09:27 111 121/83 05/04/18 09:19 107 20 40 05/04/18 08:00 98.1 111 19 121/83 100 Mechanical Ventilator 40 98.1 05/04/18 08:00 104 05/04/18 08:00 40 05/04/18 07:27 97 20 100 Mechanical Ventilator 40 05/04/18 07:18 40 05/04/18 07:17 97 18 100 Mechanical Ventilator 40 05/04/18 07:15 97 18 40 05/04/18 05:30 107 19 40 05/04/18 04:07 40 05/04/18 04:00 98.1 105 17 110/69 100 Mechanical Ventilator 40 98.1 05/04/18 04:00 102 05/04/18 03:30 108 16 40 05/04/18 01:30 107 15 40 05/04/18 00:00 99.0 110 18 119/74 100 Mechanical Ventilator 40 99.0 05/04/18 00:00 108 05/03/18 23:44 112 18 100 Mechanical Ventilator 40 05/03/18 23:43 110 17 98 Mechanical Ventilator 40 05/03/18 23:43 40 05/03/18 23:30 110 20 40 05/03/18 21:30 107 23 40 05/03/18 21:00 108 94/62 05/03/18 20:16 97.2 108 17 94/62 100 Mechanical Ventilator 40 97.2 05/03/18 20:00 40 05/03/18 20:00 108 Intake and Output 05/03/18 05/04/18 19:00 07:00 Intake Total 75 ml 1260 ml Output Total 350 ml 300 ml Balance -275 ml 960 ml IV Total 75 ml 1260 ml Output Urine Total 350 ml 300 ml Height (Feet): 5 Height (Inches): 7.00 Weight (Pounds): 106 Medications Current Medications Medications (Trade) Dose Ordered Sig/Tameka Route PRN Reason Start Time Stop Time Status Last Admin Dose Admin Acetaminophen (Tylenol) 650 mg Q4H PRN ORAL fever 05/02/18 22:15 06/01/18 22:14 05/03/18 22:43 Al Hydroxide/Mg Hydroxide (Mylanta II) 30 ml Q6H PRN ORAL dyspepsia 05/02/18 22:15 06/01/18 22:14 Albuterol/ Ipratropium (Albuterol/ Ipratropium) 3 ml EVERY 8 HOURS HHN 05/03/18 06:00 05/08/18 05:59 05/04/18 16:01 Amiodarone HCl (Cordarone) 200 mg DAILY GT 05/03/18 09:00 06/02/18 08:59 05/04/18 09:28 Carvedilol (Coreg) 6.25 mg EVERY 12 HOURS GT 05/03/18 21:00 06/02/18 08:59 05/04/18 09:27 Cefepime HCl 1 gm/ Dextrose 110 ml @ 220 mls/hr EVERY 12 HOURS IVPB 05/03/18 21:00 05/10/18 20:59 05/04/18 09:27 Dextrose (Dextrose 50%) STAT PRN IV Hypoglycemia 05/02/18 22:15 06/01/18 22:14 Dextrose/Sodium Chloride 1,000 ml @ 75 mls/hr [id number] IV 05/02/18 22:04 06/01/18 22:03 05/04/18 14:20 Diphenhydramine HCl (Benadryl) 25 mg Q6H PRN ORAL Itching/Pruritis 05/02/18 22:15 06/01/18 22:14 Levetiracetam (Keppra) 500 mg Q12HR GT 05/03/18 09:00 06/02/18 08:59 05/04/18 09:27 Metronidazole 100 ml @ 100 mls/hr Q8HR IVPB 05/03/18 14:00 05/10/18 13:59 05/04/18 14:20 Morphine Sulfate (Morphine Sulfate) 2 mg Q4H PRN IVP Severe Pain (Pain Scale 7-10) 05/03/18 08:15 05/10/18 08:14 Nitroglycerin (Ntg) 0.4 mg Q5M X 3 DOSES PRN SL Prn Chest Pain 05/02/18 22:15 06/01/18 22:14 Ondansetron HCl (Zofran) 4 mg Q6H PRN IVP Nausea & Vomiting 05/02/18 22:15 06/01/18 22:14 Polyethylene Glycol (Miralax) 17 gm HSPRN PRN ORAL Constipation 05/02/18 22:15 06/01/18 22:14 Assessment/Plan Assessment/Plan Abx: IV Vancomycin 05/03 x1 Cefepime 05/03- Flagyl 05/03 Assessment: GT site cellulitis Leukocytosis, improving -afebrile -CXR: No acute cardiopulmonary process. ISAURO, improving Multiple lower extremity decubitus (including stage IV sacral decubitus) w/ likely chronic OM- no signs of active infection -04/17 wound cx L trochanter: ESBL P. stuartti (colonizer) 02/2018 WndC x: MDR Providencia (+ skin colonizer ) Bone scan limited for eval of osteomyelitis. ( due to contracted Ext. ) -s/p 2 weeks of treatment 02/2018 -L hip necrotic/unstagelable decubitus ulcer SP Debridement 11/29 ; Wnd Cx : ACB and Kleb and Strp GrG , MRSA REcent Sepsis 2ry to HCAP, MDR 04/2018, s/p Rx -sp cx S. maltophilia (S bactrim, levaquin), MDR PsA (S Amikacin, Genta) Hx of MSSA bacteremia 11/2017 2ry to infected sacral wound ( SP 4 wks AB rx ) Hx of Pseudomonas urinary tract infection. hx of SCx: MDR-PSA ( colonizer ) Ch transaminitis /cirrhosis Hep C Ab + VDRF Status post trach and percutaneous endoscopic gastrostomy. Dementia Seizure disorder. History of pacemaker placement/AICD -hx of Vtach. Hypertension. COPD. Diabetes. Afib Cardiomyopathy Rheumatic tricuspid valve disease FTT GERD CVA/TIA LTAC resident NKDA FUll code Plan: -Continue empiric IV Vanco, Cefepime and Flagyl for GT site cellulitis -f/u wound cx -04/29 SPIV Bactrim 5mg/kg q8hr #10 (S.maltophilia PNA), Meropenem #11, IV Amikacin and INH colistin #9 (MDR PsA) -/ SP IV Vanco and Zosyn #4 -18 SP Meropenem #14 -/15 SP IV Vanco #7 -/ SP vancomycin and Zosyn d#3 -/ SP IV Vancomycin #28 -12/16 SP Meropenem #14 -// SP IV Zosyn d# 3 -f/u cx -Monitor CBC/BMP, temperatures -wound care per hospital protocol -Sx f/u -trach/peg care -aspiration precautions Thank you for this consultation. Will continue to monitor off abx. Discussed with Radha Lott M.D. May 04, 2018 20:02
[2018-05-04] MEDS: Vancomycin 1gm/D5W 275ml IVPB SCH ×2 (21:41)
[2018-05-05] VITALS: BP 116/70
[2018-05-05] MEDS: D5 1/2NS 1,000 ML IV SCH ×2 (02:13→16:06)
[2018-05-05 04:00] VITALS: BP 126/60
[2018-05-05 06:34] LABS: BASOPHILS % (AUTO) 0.5 % (0.0-2.0); EOSINOPHILS % (AUTO) 4.4 % (0.0-3.0); HEMATOCRIT 26.5 % (42.0-52.0); HEMOGLOBIN 8.1 G/DL (14.2-18.0); MEAN CORPUSCULAR VOLUME 89 FL (80-99); MONOCYTES % (AUTO) 9.5 % (1.0-10.0); NEUTROPHILS % (AUTO) 74.6 % (45.0-75.0); PLATELET COUNT 423 K/UL (150-450); RED BLOOD COUNT 2.97 M/UL (4.70-6.10); RED CELL DISTRIBUTION WIDTH 16.6 % (11.6-14.8); WHITE BLOOD COUNT 11.2 K/UL (4.8-10.8)
[2018-05-05 06:40] LABS: INR 1.4 (0.9-1.1)
[2018-05-05 06:42] LABS: ALANINE AMINOTRANSFERASE 10 U/L (12-78); ALBUMIN 1.2 G/DL (3.4-5.0); ALBUMIN/GLOBULIN RATIO 0.2 (1.0-2.7); ALKALINE PHOSPHATASE 170 U/L (46-116); ANION GAP 9 mmol/L (5-15); ASPARTATE AMINO TRANSFERASE 13 U/L (15-37); BILIRUBIN,TOTAL 0.2 MG/DL (0.2-1.0); BLOOD UREA NITROGEN 15 mg/dL (7-18); CALCIUM 8.1 MG/DL (8.5-10.1); CARBON DIOXIDE 22 MMOL/L (21-32); CHLORIDE 109 MMOL/L (98-107); CREATININE 0.9 MG/DL (0.55-1.30); PHOSPHORUS 2.8 MG/DL (2.5-4.9); POTASSIUM 3.5 MMOL/L (3.5-5.1); SODIUM 140 MMOL/L (136-145)
[2018-05-05] MEDS: Albuterol/Ipratropium 3ml neb HHN SCH ×3 (07:49→22:16)
[2018-05-05 08:00] VITALS: BP 105/70
[2018-05-05] MEDS: Carvedilol 6.25mg Tab GT SCH ×2 (09:00→21:00)
[2018-05-05] MEDS: levETIRAcetam 500mg/5ml Liquid GT SCH ×2 (09:01→21:00)
[2018-05-05] MEDS: Cefepime HCl 1 GM in D5W 110 ML IVPB SCH ×2 (09:01→21:10)
[2018-05-05] MEDS: Amiodarone 200mg tab GT SCH (09:01)
--- NOTE | 2018-05-05 09:57 | General Surgery Progress Note ---
General Surgery-Progress Note Subjective Additional Comments leukocytosis improved. no fevers. wound dressings saturated. Objective Last 24 Hour Vital Signs Date Time Temp Pulse Resp B/P (MAP) Pulse Ox O2 Delivery O2 Flow Rate FiO2 05/05/18 09:15 107 18 30 05/05/18 09:00 109 105/70 05/05/18 08:00 99.2 102 20 105/70 100 Mechanical Ventilator 30 99.2 05/05/18 08:00 30 05/05/18 08:00 109 05/05/18 07:54 107 14 100 Mechanical Ventilator 35 05/05/18 07:49 108 14 30 05/05/18 07:49 30 05/05/18 07:49 109 47 100 Mechanical Ventilator 30 05/05/18 04:54 107 18 30 05/05/18 04:00 30 05/05/18 04:00 99.2 108 23 126/60 100 Mechanical Ventilator 30 99.2 05/05/18 03:59 108 05/05/18 03:15 111 24 30 05/05/18 01:20 113 23 30 05/05/18 00:05 102 23 100 Mechanical Ventilator 35 05/05/18 00:00 98.3 111 26 116/70 100 Mechanical Ventilator 40 98.3 05/05/18 00:00 108 05/04/18 23:51 100 23 35 05/04/18 23:51 100 23 100 Mechanical Ventilator 35 05/04/18 23:51 35 05/04/18 21:40 118 124/80 18 21:18 110 23 35 18 20:00 98.1 118 20 124/80 100 Mechanical Ventilator 40 98.1 05/04/18 20:00 107 18 20:00 40 18 18:55 106 17 40 18 17:10 105 22 40 18 16:11 96 18 100 Mechanical Ventilator 40 18 16:03 40 18 16:01 95 18 100 Mechanical Ventilator 40 18 16:00 95 18 16:00 99.8 94 19 105/67 100 Mechanical Ventilator 40 99.8 18 16:00 40 18 14:36 95 20 40 18 13:21 96 20 40 6/18/18 12:00 40 05/04/18 12:00 94 05/04/18 12:00 99.0 96 18 96/57 100 Mechanical Ventilator 40 99.0 05/04/18 11:17 93 17 40 I&O Intake and Output 05/04/18 05/05/18 19:00 07:00 Intake Total 1247.50 ml 1888.750 ml Output Total 350 ml 300 ml Balance 897.50 ml 1588.750 ml Intake Free Water 50 ml 80 ml IV Total 1072.50 ml 1443.750 ml Tube Feeding 75 ml 365 ml Other 50 ml Output Urine Total 350 ml 300 ml # Bowel Movements 1 2 Dressing: saturated Wound: other - no active infection. overall large wounds that are chronic and need prolonged care. see photos Cardiovascular: RSR Respiratory: clear Abdomen: soft, non-tender, present bowel sounds Extremities: edema, cyanosis Laboratory Tests Test 05/05/18 05:50 White Blood Count 11.2 K/UL (4.8-10.8) H Red Blood Count 2.97 M/UL (4.70-6.10) L Hemoglobin 8.1 G/DL (14.2-18.0) L Hematocrit 26.5 % (42.0-52.0) L Mean Corpuscular Volume 89 FL (80-99) Mean Corpuscular Hemoglobin 27.4 PG (27.0-31.0) Mean Corpuscular Hemoglobin Concent 30.7 G/DL (32.0-36.0) L Red Cell Distribution Width 16.6 % (11.6-14.8) H Platelet Count 423 K/UL (150-450) Mean Platelet Volume 5.3 FL (6.5-10.1) L Neutrophils (%) (Auto) 74.6 % (45.0-75.0) Lymphocytes (%) (Auto) 11.0 % (20.0-45.0) L Monocytes (%) (Auto) 9.5 % (1.0-10.0) Eosinophils (%) (Auto) 4.4 % (0.0-3.0) H Basophils (%) (Auto) 0.5 % (0.0-2.0) Prothrombin Time 14.7 SEC (9.30-11.50) H Prothromb Time International Ratio 1.4 (0.9-1.1) H Activated Partial Thromboplast Time 40 SEC (23-33) H Sodium Level 140 MMOL/L (136-145) Potassium Level 3.5 MMOL/L (3.5-5.1) Chloride Level 109 MMOL/L (98-107) H Carbon Dioxide Level 22 MMOL/L (21-32) Anion Gap 9 mmol/L (5-15) Blood Urea Nitrogen 15 mg/dL (7-18) Creatinine 0.9 MG/DL (0.55-1.30) Estimat Glomerular Filtration Rate > 60 mL/min (>60) Glucose Level 147 MG/DL (74-106) H Calcium Level 8.1 MG/DL (8.5-10.1) L Phosphorus Level 2.8 MG/DL (2.5-4.9) Magnesium Level 1.7 MG/DL (1.8-2.4) L Total Bilirubin 0.2 MG/DL (0.2-1.0) Aspartate Amino Transf (AST/SGOT) 13 U/L (15-37) L Alanine Aminotransferase (ALT/SGPT) 10 U/L (12-78) L Alkaline Phosphatase 170 U/L (46-116) H Total Protein 6.3 G/DL (6.4-8.2) L Albumin 1.2 G/DL (3.4-5.0) L Globulin 5.1 g/dL Albumin/Globulin Ratio 0.2 (1.0-2.7) L Plan Problems: (1) Sacral decubitus ulcer, stage IV Assessment & Plan: Surgery: stage IV sacral decubitus ulcer - clean, no signs of active infection, no tracking, down to coccyx, some granulation tissue, no significant fibrinous tissue stage IV left hip decubitus ulcer - clean, no signs of active infection, mild 3 o'clock tracking, some granulation tissue, mild fibrinous tissue stage IV left buttock decubitus ulcer - clean, no signs of active infection, no tracking, some granulation tissue, mild fibrinous tissue stage IV right hip decubitus ulcer - clean, no signs of active infection, no tracking, some granulation tissue, moderate fibrinous tissue stage IV right buttock decubitus ulcer - clean, no signs of active infection, no tracking, some granulation tissue, moderate fibrinous tissue bilateral heel/foot wounds - no signs of active infection. All wounds present upon admission. As for care, for now please was wounds, place dry guaze to wound bed, then cover with foam dressing or ABD 2-3 times per day. need debridement of right hip and buttock wounds to help with healing - pending consent thank you for this consultation. will follow with recs. (2) Pressure ulcer, hip, left, unstageable Additional Comments Still unable to reach family, POA, next of kin for consent. have attempted multiple times on multiple occasions without response Derek Dong May 05, 2018 09:57
[2018-05-05] MEDS: Morphine Sulfate 2mg/ml Inj IVP PRN (11:07)
--- NOTE | 2018-05-05 11:31 | Pulmonolgy Critical Care Note ---
Critical Care - Asmt/Plan Problems: (1) G-tube site cellulitis (2) Gastrostomy tube skin breakdown (3) Ventilator dependence (4) Sacral decubitus ulcer, stage IV (5) AICD (automatic cardioverter/defibrillator) present (6) EF of 30 (7) Pressure ulcer, hip, left, unstageable Respiratory: monitor respiratory rate, adjust FIO2, CXR Cardiac: continue to monitor HR/BP Renal: F/U I&O Infectious Disease: check cultures Gastrointestinal: continue feedings/current rate Endocrine: monitor blood sugar Hematologic: monitor H/H Neurologic: PRN Ativan, PRN Morphine Prophylaxis: Protonix, Heparin Time Spent (Minutes): 40 Notes Reviewed: cardio, renal Discussed with: nurses, consultants, case management rnfinance and administration manager - Objective Last 24 Hour Vital Signs Date Time Temp Pulse Resp B/P (MAP) Pulse Ox O2 Delivery O2 Flow Rate FiO2 05/05/18 11:24 105 17 30 05/05/18 11:07 99.2 05/05/18 09:15 107 18 30 05/05/18 09:00 109 105/70 05/05/18 08:00 99.2 102 20 105/70 100 Mechanical Ventilator 30 99.2 05/05/18 08:00 30 05/05/18 08:00 109 05/05/18 07:54 107 14 100 Mechanical Ventilator 35 05/05/18 07:49 108 14 30 05/05/18 07:49 30 05/05/18 07:49 109 47 100 Mechanical Ventilator 30 05/05/18 04:54 107 18 30 05/05/18 04:00 30 05/05/18 04:00 99.2 108 23 126/60 100 Mechanical Ventilator 30 99.2 05/05/18 03:59 108 05/05/18 03:15 111 24 30 05/05/18 01:20 113 23 30 05/05/18 00:05 102 23 100 Mechanical Ventilator 35 05/05/18 00:00 98.3 111 26 116/70 100 Mechanical Ventilator 40 98.3 05/05/18 00:00 108 05/04/18 23:51 100 23 35 05/04/18 23:51 100 23 100 Mechanical Ventilator 35 05/04/18 23:51 35 05/04/18 21:40 118 124/80 6/18/18 21:18 110 23 35 05/04/18 20:00 98.1 118 20 124/80 100 Mechanical Ventilator 40 98.1 05/04/18 20:00 107 05/04/18 20:00 40 05/04/18 18:55 106 17 40 05/04/18 17:10 105 22 40 05/04/18 16:11 96 18 100 Mechanical Ventilator 40 05/04/18 16:03 40 05/04/18 16:01 95 18 100 Mechanical Ventilator 40 05/04/18 16:00 95 05/04/18 16:00 99.8 94 19 105/67 100 Mechanical Ventilator 40 99.8 05/04/18 16:00 40 05/04/18 14:36 95 20 40 05/04/18 13:21 96 20 40 05/04/18 12:00 40 05/04/18 12:00 94 05/04/18 12:00 99.0 96 18 96/57 100 Mechanical Ventilator 40 99.0 Status: awake Condition: critical HEENT: atraumatic, normocephalic Neck: full ROM Lungs: rhonchi Heart: HR/BP stable Abdomen: soft, non-tender Extremities: no C/C/E Decubiti: location Micro: Microbiology Date/Time Source Procedure Growth Status 05/02/18 19:40 Blood Blood Culture - Preliminary NO GROWTH AFTER 48 HOURS Resulted 05/02/18 19:20 Blood Blood Culture - Preliminary NO GROWTH AFTER 48 HOURS Resulted 05/03/18 02:00 Wound Gram Stain - Final Resulted 05/03/18 02:00 Wound Culture - Preliminary Gram Negative Bacillus 1 Gram Negative Bacillus 2 Resulted 05/03/18 00:50 Nasal Nares MRSA Culture - Final NO METHICILLIN RESISTANT STAPH AUREUS... Complete 05/02/18 19:00 Rectum VRE Culture - Final Enterococcus Faecalis - Vre Enterococcus Faecium - Vre Complete Critical Care - Subjective ROS Limited/Unobtainable: Yes Condition: critical EKG Rhythm: Sinus Rhythm FI02: 30 Vent Support Breath Rate: 14 Vent Support Mode: AC Vent Tidal Volume: 600 Sputum Amount: Small PEEP: 5.0 PIP: 22 Tube Feeding Amount: 35 I&O: Intake and Output 05/04/18 05/05/18 19:00 07:00 Intake Total 1247.50 ml 1888.750 ml Output Total 350 ml 300 ml Balance 897.50 ml 1588.750 ml Intake Free Water 50 ml 80 ml IV Total 1072.50 ml 1443.750 ml Tube Feeding 75 ml 365 ml Other 50 ml Output Urine Total 350 ml 300 ml # Bowel Movements 1 2 CXR: no change Labs: Laboratory Tests Test 05/05/18 05:50 White Blood Count 11.2 K/UL (4.8-10.8) H Red Blood Count 2.97 M/UL (4.70-6.10) L Hemoglobin 8.1 G/DL (14.2-18.0) L Hematocrit 26.5 % (42.0-52.0) L Mean Corpuscular Volume 89 FL (80-99) Mean Corpuscular Hemoglobin 27.4 PG (27.0-31.0) Mean Corpuscular Hemoglobin Concent 30.7 G/DL (32.0-36.0) L Red Cell Distribution Width 16.6 % (11.6-14.8) H Platelet Count 423 K/UL (150-450) Mean Platelet Volume 5.3 FL (6.5-10.1) L Neutrophils (%) (Auto) 74.6 % (45.0-75.0) Lymphocytes (%) (Auto) 11.0 % (20.0-45.0) L Monocytes (%) (Auto) 9.5 % (1.0-10.0) Eosinophils (%) (Auto) 4.4 % (0.0-3.0) H Basophils (%) (Auto) 0.5 % (0.0-2.0) Prothrombin Time 14.7 SEC (9.30-11.50) H Prothromb Time International Ratio 1.4 (0.9-1.1) H Activated Partial Thromboplast Time 40 SEC (23-33) H Sodium Level 140 MMOL/L (136-145) Potassium Level 3.5 MMOL/L (3.5-5.1) Chloride Level 109 MMOL/L (98-107) H Carbon Dioxide Level 22 MMOL/L (21-32) Anion Gap 9 mmol/L (5-15) Blood Urea Nitrogen 15 mg/dL (7-18) Creatinine 0.9 MG/DL (0.55-1.30) Estimat Glomerular Filtration Rate > 60 mL/min (>60) Glucose Level 147 MG/DL (74-106) H Calcium Level 8.1 MG/DL (8.5-10.1) L Phosphorus Level 2.8 MG/DL (2.5-4.9) Magnesium Level 1.7 MG/DL (1.8-2.4) L Total Bilirubin 0.2 MG/DL (0.2-1.0) Aspartate Amino Transf (AST/SGOT) 13 U/L (15-37) L Alanine Aminotransferase (ALT/SGPT) 10 U/L (12-78) L Alkaline Phosphatase 170 U/L (46-116) H Total Protein 6.3 G/DL (6.4-8.2) L Albumin 1.2 G/DL (3.4-5.0) L Globulin 5.1 g/dL Albumin/Globulin Ratio 0.2 (1.0-2.7) L Shani Moses MD May 05, 2018 11:31
--- NOTE | 2018-05-05 11:35 | Infectious Diseases Prog Note ---
Assessment/Plan Assessment/Plan Abx: IV Vancomycin 05/03 x1 Cefepime 05/03- Flagyl 05/03 Assessment: GT site cellulitis -wound cx GNR #1, #2 Leukocytosis, improving -afebrile -CXR: No acute cardiopulmonary process. -Bcx NTD ISAURO, improving Multiple lower extremity decubitus (including stage IV sacral decubitus) w/ likely chronic OM- no signs of active infection -04/17 wound cx L trochanter: ESBL P. stuartti (colonizer) 02/2018 [facility]nd[facility] x: MDR Providencia (+ skin colonizer ) Bone scan limited for eval of osteomyelitis. ( due to contracted Ext. ) -s/p 2 weeks of treatment 02/2018 -L hip necrotic/unstagelable decubitus ulcer SP Debridement 11/29 ; Wnd Cx : ACB and Kleb and Strp GrG , MRSA REcent Sepsis 2ry to HCAP, MDR 04/2018, s/p Rx -sp cx S. maltophilia (S bactrim, levaquin), MDR PsA (S Amikacin, Genta) Hx of MSSA bacteremia 11/2017 2ry to infected sacral wound ( SP 4 wks AB rx ) Hx of Pseudomonas urinary tract infection. hx of SCx: MDR-PSA ( colonizer ) Ch transaminitis /cirrhosis Hep C Ab + VDRF Status post trach and percutaneous endoscopic gastrostomy. Dementia Seizure disorder. History of pacemaker placement/AICD -hx of Vtach. Hypertension. COPD. Diabetes. Afib Cardiomyopathy Rheumatic tricuspid valve disease FTT GERD CVA/TIA [facility] resident NKDA FUll code Plan: -Continue empiric IV Vanco, Cefepime and Flagyl #3 for GT site cellulitis -f/u wound cx -04/29 SPIV Bactrim 5mg/kg q8hr #10 (S.maltophilia PNA), Meropenem #11, IV Amikacin and INH colistin #9 (MDR PsA) -/ SP IV Vanco and Zosyn #4 -03/04 SP Meropenem #14 -/ SP IV Vanco #7 -02/20 SP vancomycin and Zosyn d#3 -12/24 SP IV Vancomycin #28 -12/16 SP Meropenem #14 -// SP IV Zosyn d# 3 -f/u cx -Monitor CBC/BMP, temperatures -wound care per hospital protocol -Sx f/u -trach/peg care -aspiration precautions Thank you for this consultation. Will continue to monitor off abx. Discussed with RN Subjective Allergies: Coded Allergies: No Known Allergies (Unverified , 03/07/17) Subjective afebrile at 2l NC WBC 11 BxNTD Objective Vital Signs Last 24 Hour Vital Signs Date Time Temp Pulse Resp B/P (MAP) Pulse Ox O2 Delivery O2 Flow Rate FiO2 05/05/18 11:24 105 17 30 05/05/18 11:07 99.2 05/05/18 09:15 107 18 30 05/05/18 09:00 109 105/70 05/05/18 08:00 99.2 102 20 105/70 100 Mechanical Ventilator 30 99.2 05/05/18 08:00 30 05/05/18 08:00 109 05/05/18 07:54 107 14 100 Mechanical Ventilator 35 05/05/18 07:49 108 14 30 05/05/18 07:49 30 05/05/18 07:49 109 47 100 Mechanical Ventilator 30 05/05/18 04:54 107 18 30 05/05/18 04:00 30 05/05/18 04:00 99.2 108 23 126/60 100 Mechanical Ventilator 30 99.2 05/05/18 03:59 108 05/05/18 03:15 111 24 30 05/05/18 01:20 113 23 30 05/05/18 00:05 102 23 100 Mechanical Ventilator 35 05/05/18 00:00 98.3 111 26 116/70 100 Mechanical Ventilator 40 98.3 05/05/18 00:00 108 05/04/18 23:51 100 23 35 18 23:51 100 23 100 Mechanical Ventilator 35 05/04/18 23:51 35 05/04/18 21:40 118 124/80 05/04/18 21:18 110 23 35 05/04/18 20:00 98.1 118 20 124/80 100 Mechanical Ventilator 40 98.1 05/04/18 20:00 107 05/04/18 20:00 40 18 18:55 106 17 40 05/04/18 17:10 105 22 40 05/04/18 16:11 96 18 100 Mechanical Ventilator 40 05/04/18 16:03 40 05/04/18 16:01 95 18 100 Mechanical Ventilator 40 05/04/18 16:00 95 05/04/18 16:00 99.8 94 19 105/67 100 Mechanical Ventilator 40 99.8 05/04/18 16:00 40 05/04/18 14:36 95 20 40 05/04/18 13:21 96 20 40 05/04/18 12:00 40 05/04/18 12:00 94 05/04/18 12:00 99.0 96 18 96/57 100 Mechanical Ventilator 40 99.0 Height (Feet): 5 Height (Inches): 7.00 Weight (Pounds): 106 Objective General Appearance: alert, mild distress, thin EENT: PERRL/EOMI, normal ENT inspection Neck: non-tender, normal alignment, supple Cardiovascular: normal peripheral pulses, normal rate, regular rhythm, no gallop/murmur, no JVD Respiratory/Chest: respiratory distress, crackles/rales, rhonchi - bilaterally , expiratory wheezing Abdomen: normal bowel sounds, non tender, soft, no organomegaly, no mass Extremities: normal inspection 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 Complete 05/02/18 19:00 Rectum VRE Culture - Final Enterococcus Faecalis - Vre Enterococcus Faecium - Vre Complete Laboratory Tests Test 05/05/18 05:50 White Blood Count 11.2 K/UL (4.8-10.8) H Red Blood Count 2.97 M/UL (4.70-6.10) L Hemoglobin 8.1 G/DL (14.2-18.0) L Hematocrit 26.5 % (42.0-52.0) L Mean Corpuscular Volume 89 FL (80-99) Mean Corpuscular Hemoglobin 27.4 PG (27.0-31.0) Mean Corpuscular Hemoglobin Concent 30.7 G/DL (32.0-36.0) L Red Cell Distribution Width 16.6 % (11.6-14.8) H Platelet Count 423 K/UL (150-450) Mean Platelet Volume 5.3 FL (6.5-10.1) L Neutrophils (%) (Auto) 74.6 % (45.0-75.0) Lymphocytes (%) (Auto) 11.0 % (20.0-45.0) L Monocytes (%) (Auto) 9.5 % (1.0-10.0) Eosinophils (%) (Auto) 4.4 % (0.0-3.0) H Basophils (%) (Auto) 0.5 % (0.0-2.0) Prothrombin Time 14.7 SEC (9.30-11.50) H Prothromb Time International Ratio 1.4 (0.9-1.1) H Activated Partial Thromboplast Time 40 SEC (23-33) H Sodium Level 140 MMOL/L (136-145) Potassium Level 3.5 MMOL/L (3.5-5.1) Chloride Level 109 MMOL/L (98-107) H Carbon Dioxide Level 22 MMOL/L (21-32) Anion Gap 9 mmol/L (5-15) Blood Urea Nitrogen 15 mg/dL (7-18) Creatinine 0.9 MG/DL (0.55-1.30) Estimat Glomerular Filtration Rate > 60 mL/min (>60) Glucose Level 147 MG/DL (74-106) H Calcium Level 8.1 MG/DL (8.5-10.1) L Phosphorus Level 2.8 MG/DL (2.5-4.9) Magnesium Level 1.7 MG/DL (1.8-2.4) L Total Bilirubin 0.2 MG/DL (0.2-1.0) Aspartate Amino Transf (AST/SGOT) 13 U/L (15-37) L Alanine Aminotransferase (ALT/SGPT) 10 U/L (12-78) L Alkaline Phosphatase 170 U/L (46-116) H Total Protein 6.3 G/DL (6.4-8.2) L Albumin 1.2 G/DL (3.4-5.0) L Globulin 5.1 g/dL Albumin/Globulin Ratio 0.2 (1.0-2.7) L Current Medications Medications (Trade) Dose Ordered Sig/Tameka Route PRN Reason Start Time Stop Time Status Last Admin Dose Admin Acetaminophen (Tylenol) 650 mg Q4H PRN ORAL fever 05/02/18 22:15 06/01/18 22:14 05/03/18 22:43 Al Hydroxide/Mg Hydroxide (Mylanta II) 30 ml Q6H PRN ORAL dyspepsia 05/02/18 22:15 06/01/18 22:14 Albuterol/ Ipratropium (Albuterol/ Ipratropium) 3 ml EVERY 8 HOURS HHN 05/03/18 06:00 05/08/18 05:59 05/05/18 07:49 Amiodarone HCl (Cordarone) 200 mg DAILY GT 05/03/18 09:00 06/02/18 08:59 05/05/18 09:01 Carvedilol (Coreg) 6.25 mg EVERY 12 HOURS GT 05/03/18 21:00 06/02/18 08:59 05/04/18 21:40 Cefepime HCl 1 gm/ Dextrose 110 ml @ 220 mls/hr EVERY 12 HOURS IVPB 05/03/18 21:00 05/10/18 20:59 05/05/18 09:01 Dextrose (Dextrose 50%) STAT PRN IV Hypoglycemia 05/02/18 22:15 06/01/18 22:14 Dextrose/Sodium Chloride 1,000 ml @ 75 mls/hr [id number] IV 05/02/18 22:04 06/01/18 22:03 05/05/18 02:13 Diphenhydramine HCl (Benadryl) 25 mg Q6H PRN ORAL Itching/Pruritis 05/02/18 22:15 06/01/18 22:14 Levetiracetam (Keppra) 500 mg Q12HR GT 05/03/18 09:00 06/02/18 08:59 05/05/18 09:01 Magnesium Sulfate 100 ml @ 100 mls/hr Q1H IVPB 05/05/18 11:00 05/05/18 11:30 05/05/18 11:00 Metronidazole 100 ml @ 100 mls/hr Q8HR IVPB 05/03/18 14:00 05/10/18 13:59 05/05/18 06:08 Morphine Sulfate (Morphine Sulfate) 2 mg Q4H PRN IVP Severe Pain (Pain Scale 7-10) 05/03/18 08:15 05/10/18 08:14 05/05/18 11:07 Nitroglycerin (Ntg) 0.4 mg Q5M X 3 DOSES PRN SL Prn Chest Pain 05/02/18 22:15 06/01/18 22:14 Ondansetron HCl (Zofran) 4 mg Q6H PRN IVP Nausea & Vomiting 05/02/18 22:15 06/01/18 22:14 Polyethylene Glycol (Miralax) 17 gm HSPRN PRN ORAL Constipation 05/02/18 22:15 06/01/18 22:14 Vancomycin HCl (Vanco rx to dose) 1 ea DAILY PRN MISC Per rx protocol 05/04/18 20:00 06/03/18 19:59 Vancomycin HCl 1 gm/Dextrose 275 ml @ 183.708 mls/hr Q24H IVPB 05/04/18 21:30 05/09/18 21:29 05/04/18 21:41 Radha Saini M.D. May 05, 2018 11:35
[2018-05-05 12:00] VITALS: BP 93/61
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
[2018-05-05 16:00] VITALS: BP 100/65
--- NOTE | 2018-05-05 16:45 | Internal Med Progress Note ---
Subjective Physician Name Aaron Solis Attending Physician Roland Box MD Current Medications Medications (Trade) Dose Ordered Sig/Tameka Route PRN Reason Start Time Stop Time Status Last Admin Dose Admin Acetaminophen (Tylenol) 650 mg Q4H PRN ORAL fever 05/02/18 22:15 06/01/18 22:14 05/03/18 22:43 Al Hydroxide/Mg Hydroxide (Mylanta II) 30 ml Q6H PRN ORAL dyspepsia 05/02/18 22:15 06/01/18 22:14 Albuterol/ Ipratropium (Albuterol/ Ipratropium) 3 ml EVERY 8 HOURS HHN 05/03/18 06:00 05/08/18 05:59 05/05/18 14:56 Amiodarone HCl (Cordarone) 200 mg DAILY GT 05/03/18 09:00 06/02/18 08:59 05/05/18 09:01 Carvedilol (Coreg) 6.25 mg EVERY 12 HOURS GT 05/03/18 21:00 06/02/18 08:59 05/04/18 21:40 Cefepime HCl 1 gm/ Dextrose 110 ml @ 220 mls/hr EVERY 12 HOURS IVPB 05/03/18 21:00 05/10/18 20:59 05/05/18 09:01 Dextrose (Dextrose 50%) STAT PRN IV Hypoglycemia 05/02/18 22:15 06/01/18 22:14 Dextrose/Sodium Chloride 1,000 ml @ 75 mls/hr [id number] IV 05/02/18 22:04 06/01/18 22:03 05/05/18 16:06 Diphenhydramine HCl (Benadryl) 25 mg Q6H PRN ORAL Itching/Pruritis 05/02/18 22:15 06/01/18 22:14 Levetiracetam (Keppra) 500 mg Q12HR GT 05/03/18 09:00 06/02/18 08:59 05/05/18 09:01 Metronidazole 100 ml @ 100 mls/hr Q8HR IVPB 05/03/18 14:00 05/10/18 13:59 05/05/18 16:05 Morphine Sulfate (Morphine Sulfate) 2 mg Q4H PRN IVP Severe Pain (Pain Scale 7-10) 05/03/18 08:15 05/10/18 08:14 05/05/18 11:07 Nitroglycerin (Ntg) 0.4 mg Q5M X 3 DOSES PRN SL Prn Chest Pain 05/02/18 22:15 06/01/18 22:14 Ondansetron HCl (Zofran) 4 mg Q6H PRN IVP Nausea & Vomiting 05/02/18 22:15 06/01/18 22:14 Polyethylene Glycol (Miralax) 17 gm HSPRN PRN ORAL Constipation 05/02/18 22:15 06/01/18 22:14 Vancomycin HCl (Vanco rx to dose) 1 ea DAILY PRN MISC Per rx protocol 05/04/18 20:00 06/03/18 19:59 Vancomycin HCl 1 gm/Dextrose 275 ml @ 183.708 mls/hr Q24H IVPB 05/04/18 21:30 05/09/18 21:29 05/04/18 21:41 Allergies: Coded Allergies: No Known Allergies (Unverified , 03/07/17) Subjective 58 YO M admitted with infected gastrostomy tube site. Cover for Int Med-Dr Box. LIGIA. Vent dependent on trach Objective Last Vital Signs Date Time Temp Pulse Resp B/P (MAP) Pulse Ox O2 Delivery O2 Flow Rate FiO2 05/05/18 16:00 30 05/05/18 15:01 109 14 100 Mechanical Ventilator 05/05/18 12:00 99.2 93/61 99.2 Laboratory Tests Test 05/05/18 05:50 White Blood Count 11.2 K/UL (4.8-10.8) H Red Blood Count 2.97 M/UL (4.70-6.10) L Hemoglobin 8.1 G/DL (14.2-18.0) L Hematocrit 26.5 % (42.0-52.0) L Mean Corpuscular Volume 89 FL (80-99) Mean Corpuscular Hemoglobin 27.4 PG (27.0-31.0) Mean Corpuscular Hemoglobin Concent 30.7 G/DL (32.0-36.0) L Red Cell Distribution Width 16.6 % (11.6-14.8) H Platelet Count 423 K/UL (150-450) Mean Platelet Volume 5.3 FL (6.5-10.1) L Neutrophils (%) (Auto) 74.6 % (45.0-75.0) Lymphocytes (%) (Auto) 11.0 % (20.0-45.0) L Monocytes (%) (Auto) 9.5 % (1.0-10.0) Eosinophils (%) (Auto) 4.4 % (0.0-3.0) H Basophils (%) (Auto) 0.5 % (0.0-2.0) Prothrombin Time 14.7 SEC (9.30-11.50) H Prothromb Time International Ratio 1.4 (0.9-1.1) H Activated Partial Thromboplast Time 40 SEC (23-33) H Sodium Level 140 MMOL/L (136-145) Potassium Level 3.5 MMOL/L (3.5-5.1) Chloride Level 109 MMOL/L (98-107) H Carbon Dioxide Level 22 MMOL/L (21-32) Anion Gap 9 mmol/L (5-15) Blood Urea Nitrogen 15 mg/dL (7-18) Creatinine 0.9 MG/DL (0.55-1.30) Estimat Glomerular Filtration Rate > 60 mL/min (>60) Glucose Level 147 MG/DL (74-106) H Calcium Level 8.1 MG/DL (8.5-10.1) L Phosphorus Level 2.8 MG/DL (2.5-4.9) Magnesium Level 1.7 MG/DL (1.8-2.4) L Total Bilirubin 0.2 MG/DL (0.2-1.0) Aspartate Amino Transf (AST/SGOT) 13 U/L (15-37) L Alanine Aminotransferase (ALT/SGPT) 10 U/L (12-78) L Alkaline Phosphatase 170 U/L (46-116) H Total Protein 6.3 G/DL (6.4-8.2) L Albumin 1.2 G/DL (3.4-5.0) L Globulin 5.1 g/dL Albumin/Globulin Ratio 0.2 (1.0-2.7) L Microbiology Date/Time Source Procedure Growth Status 05/02/18 19:40 Blood Blood Culture - Preliminary NO GROWTH AFTER 48 HOURS Resulted 05/02/18 19:20 Blood Blood Culture - Preliminary NO GROWTH AFTER 48 HOURS Resulted 05/03/18 02:00 Wound Gram Stain - Final Resulted 05/03/18 02:00 Wound Culture - Preliminary Gram Negative Bacillus 1 Gram Negative Bacillus 2 Resulted 05/03/18 00:50 Nasal Nares MRSA Culture - Final NO METHICILLIN RESISTANT STAPH AUREUS... Complete 05/02/18 19:00 Rectum VRE Culture - Final Enterococcus Faecalis - Vre Enterococcus Faecium - Vre Complete Intake and Output 05/04/18 05/05/18 19:00 07:00 Intake Total 1247.50 ml 1888.750 ml Output Total 350 ml 300 ml Balance 897.50 ml 1588.750 ml Intake Free Water 50 ml 80 ml IV Total 1072.50 ml 1443.750 ml Tube Feeding 75 ml 365 ml Other 50 ml Output Urine Total 350 ml 300 ml # Bowel Movements 1 2 Objective General Appearance: alert, mild distress, thin EENT: PERRL/EOMI, normal ENT inspection Neck: non-tender, normal alignment, supple Cardiovascular: normal peripheral pulses, normal rate, regular rhythm, no gallop/murmur, no JVD Respiratory/Chest: Trach; mech vent; respiratory distress, crackles/rales, rhonchi - bilaterally, expiratory wheezing Abdomen: normal bowel sounds, non tender, soft, no organomegaly, no mass Extremities: normal inspection 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 See pulmonary note. (8) Seizure disorder Assessment & Plan: Continue keppra (9) Atrial fibrillation Assessment & Plan: Continue amiodarone per cardiology (10) CHF (congestive heart failure) Assessment & Plan: See cardiology note. (11) Diabetes mellitus type II, uncontrolled (12) Cerebral vascular disease (13) Feeding by G-tube Status: progressing Aaron Solis MD May 05, 2018 16:45
[2018-05-05 20:00] VITALS: BP 104/63
[2018-05-05] MEDS: Vancomycin 1gm/D5W 275ml IVPB SCH ×2 (21:57)
[2018-05-06] VITALS: BP 119/68
[2018-05-06 04:00] VITALS: BP 107/66
[2018-05-06 05:23] LABS: BASOPHILS % (AUTO) 0.4 % (0.0-2.0); EOSINOPHILS % (AUTO) 6.2 % (0.0-3.0); HEMATOCRIT 27.5 % (42.0-52.0); HEMOGLOBIN 8.6 G/DL (14.2-18.0); LYMPHOCYTES % (AUTO) 12.1 % (20.0-45.0); MEAN CORPUSCULAR VOLUME 89 FL (80-99); MONOCYTES % (AUTO) 8.9 % (1.0-10.0); NEUTROPHILS % (AUTO) 72.4 % (45.0-75.0); PLATELET COUNT 402 K/UL (150-450); RED CELL DISTRIBUTION WIDTH 15.8 % (11.6-14.8); WHITE BLOOD COUNT 13.5 K/UL (4.8-10.8)
[2018-05-06 05:44] LABS: ALANINE AMINOTRANSFERASE 14 U/L (12-78); ALBUMIN 1.2 G/DL (3.4-5.0); ALBUMIN/GLOBULIN RATIO 0.2 (1.0-2.7); ALKALINE PHOSPHATASE 154 U/L (46-116); ANION GAP 5 mmol/L (5-15); ASPARTATE AMINO TRANSFERASE 13 U/L (15-37); BILIRUBIN,TOTAL 0.3 MG/DL (0.2-1.0); BLOOD UREA NITROGEN 12 mg/dL (7-18); CARBON DIOXIDE 24 MMOL/L (21-32); CHLORIDE 109 MMOL/L (98-107); CREATININE 0.7 MG/DL (0.55-1.30); PHOSPHORUS 2.8 MG/DL (2.5-4.9); POTASSIUM 3.8 MMOL/L (3.5-5.1); SODIUM 137 MMOL/L (136-145)
[2018-05-06] MEDS: D5 1/2NS 1,000 ML IV SCH ×2 (06:01→19:33)
[2018-05-06] MEDS: Albuterol/Ipratropium 3ml neb HHN SCH ×3 (07:14→22:54)
[2018-05-06 08:00] VITALS: BP 101/64
[2018-05-06] MEDS: Carvedilol 6.25mg Tab GT SCH ×2 (09:00→21:00)
[2018-05-06] MEDS: levETIRAcetam 500mg/5ml Liquid GT SCH ×2 (09:00→21:31)
[2018-05-06] MEDS: Amiodarone 200mg tab GT SCH (09:00)
[2018-05-06] MEDS: Cefepime HCl 1 GM in D5W 110 ML IVPB SCH (09:14)
--- NOTE | 2018-05-06 11:04 | Pulmonolgy Critical Care Note ---
Critical Care - Asmt/Plan Problems: (1) G-tube site cellulitis (2) Gastrostomy tube skin breakdown (3) Ventilator dependence (4) Sacral decubitus ulcer, stage IV (5) AICD (automatic cardioverter/defibrillator) present (6) EF of 30 (7) Pressure ulcer, hip, left, unstageable Respiratory: monitor respiratory rate, adjust FIO2, CXR Cardiac: continue to monitor HR/BP Renal: F/U I&O Infectious Disease: check cultures Gastrointestinal: continue feedings/current rate Endocrine: monitor blood sugar Hematologic: transfuse if hgb<8.5 Neurologic: keep patient comfortable Affect: PRN ativan Prophylaxis: Protonix Notes Reviewed: cardio, renal Discussed with: consultants, counseling case managerinformation assurance manager - Objective Last 24 Hour Vital Signs Date Time Temp Pulse Resp B/P (MAP) Pulse Ox O2 Delivery O2 Flow Rate FiO2 05/06/18 09:00 97 101/64 05/06/18 08:57 97 18 30 05/06/18 08:00 97.7 100 22 101/64 100 Mechanical Ventilator 30 97.7 05/06/18 08:00 97 05/06/18 08:00 30 05/06/18 07:22 98 19 100 Mechanical Ventilator 30 05/06/18 07:14 96 18 30 05/06/18 07:14 98 18 100 Mechanical Ventilator 30 05/06/18 05:26 105 16 30 05/06/18 04:00 30 05/06/18 04:00 98.1 99 36 107/66 100 Mechanical Ventilator 30 98.1 05/06/18 04:00 95 05/06/18 03:20 101 16 30 05/06/18 00:59 107 16 30 05/06/18 00:00 101 05/06/18 00:00 97.9 99 27 119/68 100 Mechanical Ventilator 30 97.9 05/05/18 23:30 101 18 30 05/05/18 22:40 102 14 100 Mechanical Ventilator 30 05/05/18 22:30 100 23 100 Mechanical Ventilator 30 05/05/18 22:30 30 05/05/18 21:00 107 104/63 05/05/18 21:00 108 18 30 05/05/18 20:00 98.1 107 27 104/63 100 Mechanical Ventilator 30 98.1 05/05/18 20:00 30 05/05/18 19:44 103 05/05/18 18:45 101 18 30 05/05/18 16:44 97 17 30 05/05/18 16:00 30 05/05/18 16:00 98.8 117 19 100/65 100 Mechanical Ventilator 30 98.8 05/05/18 16:00 103 05/05/18 15:01 109 14 100 Mechanical Ventilator 35 05/05/18 14:56 107 14 30 05/05/18 14:56 107 14 100 Mechanical Ventilator 30 05/05/18 14:56 30 05/05/18 13:22 109 20 30 05/05/18 12:00 30 05/05/18 12:00 105 05/05/18 12:00 99.2 109 18 93/61 100 Mechanical Ventilator 30 99.2 05/05/18 11:38 99.2 05/05/18 11:24 105 17 30 05/05/18 11:07 99.2 Status: awake Condition: critical HEENT: atraumatic Lungs: clear Heart: HR/BP stable Abdomen: soft, active bowel sounds, feeding tube Extremities: no C/C/E, edema Critical Care - Subjective ROS Limited/Unobtainable: Yes Condition: critical EKG Rhythm: Sinus Rhythm FI02: 30 Vent Support Breath Rate: 14 Vent Support Mode: AC Vent Tidal Volume: 600 Sputum Amount: Small PEEP: 5.0 PIP: 26 Tube Feeding Amount: 35 I&O: Intake and Output 05/05/18 05/06/18 19:00 07:00 Intake Total 1575 ml 1577.416 ml Output Total 300 ml 425 ml Balance 1275 ml 1152.416 ml IV Total 1335 ml 1577.416 ml Tube Feeding 210 ml Other 30 ml Output Urine Total 300 ml 425 ml # Bowel Movements 2 Labs: Laboratory Tests Test 05/06/18 04:50 White Blood Count 13.5 K/UL (4.8-10.8) H Red Blood Count 3.10 M/UL (4.70-6.10) L Hemoglobin 8.6 G/DL (14.2-18.0) L Hematocrit 27.5 % (42.0-52.0) L Mean Corpuscular Volume 89 FL (80-99) Mean Corpuscular Hemoglobin 27.7 PG (27.0-31.0) Mean Corpuscular Hemoglobin Concent 31.3 G/DL (32.0-36.0) L Red Cell Distribution Width 15.8 % (11.6-14.8) H Platelet Count 402 K/UL (150-450) Mean Platelet Volume 5.2 FL (6.5-10.1) L Neutrophils (%) (Auto) 72.4 % (45.0-75.0) Lymphocytes (%) (Auto) 12.1 % (20.0-45.0) L Monocytes (%) (Auto) 8.9 % (1.0-10.0) Eosinophils (%) (Auto) 6.2 % (0.0-3.0) H Basophils (%) (Auto) 0.4 % (0.0-2.0) Sodium Level 137 MMOL/L (136-145) Potassium Level 3.8 MMOL/L (3.5-5.1) Chloride Level 109 MMOL/L (98-107) H Carbon Dioxide Level 24 MMOL/L (21-32) Anion Gap 5 mmol/L (5-15) Blood Urea Nitrogen 12 mg/dL (7-18) Creatinine 0.7 MG/DL (0.55-1.30) Estimat Glomerular Filtration Rate > 60 mL/min (>60) Glucose Level 108 MG/DL (74-106) H Calcium Level 8.0 MG/DL (8.5-10.1) L Phosphorus Level 2.8 MG/DL (2.5-4.9) Magnesium Level 1.8 MG/DL (1.8-2.4) Total Bilirubin 0.3 MG/DL (0.2-1.0) Aspartate Amino Transf (AST/SGOT) 13 U/L (15-37) L Alanine Aminotransferase (ALT/SGPT) 14 U/L (12-78) Alkaline Phosphatase 154 U/L (46-116) H Total Protein 6.4 G/DL (6.4-8.2) Albumin 1.2 G/DL (3.4-5.0) L Globulin 5.2 g/dL Albumin/Globulin Ratio 0.2 (1.0-2.7) L Shani Moses MD May 06, 2018 11:04
[2018-05-06] MEDS ORDERED: Gastrograffin 30ml ORAL SCH (11:15)
[2018-05-06 12:00] VITALS: BP 113/60
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
--- NOTE | 2018-05-06 12:35 | Internal Med Progress Note ---
Subjective Date of Service: May 06, 2018 Physician Name Aaron Solis Attending Physician Roland Box MD Current Medications Medications (Trade) Dose Ordered Sig/Tameka Route PRN Reason Start Time Stop Time Status Last Admin Dose Admin Acetaminophen (Tylenol) 650 mg Q4H PRN ORAL fever 05/02/18 22:15 06/01/18 22:14 05/03/18 22:43 Al Hydroxide/Mg Hydroxide (Mylanta II) 30 ml Q6H PRN ORAL dyspepsia 05/02/18 22:15 06/01/18 22:14 Albuterol/ Ipratropium (Albuterol/ Ipratropium) 3 ml EVERY 8 HOURS HHN 05/03/18 06:00 05/08/18 05:59 05/06/18 07:14 Amiodarone HCl (Cordarone) 200 mg DAILY GT 05/03/18 09:00 06/02/18 08:59 05/05/18 09:01 Carvedilol (Coreg) 6.25 mg EVERY 12 HOURS GT 05/03/18 21:00 06/02/18 08:59 05/04/18 21:40 Cefepime HCl 1 gm/ Dextrose 110 ml @ 220 mls/hr EVERY 12 HOURS IVPB 05/03/18 21:00 05/10/18 20:59 05/06/18 09:14 Dextrose (Dextrose 50%) STAT PRN IV Hypoglycemia 05/02/18 22:15 06/01/18 22:14 Dextrose/Sodium Chloride 1,000 ml @ 75 mls/hr [id number] IV 05/02/18 22:04 06/01/18 22:03 05/06/18 06:01 Diatrizoate Meglum/ Diatrizoate Sod (Gastrografin) 30 ml ONCE ORAL 05/06/18 11:15 05/06/18 13:00 05/06/18 12:16 Diphenhydramine HCl (Benadryl) 25 mg Q6H PRN ORAL Itching/Pruritis 05/02/18 22:15 06/01/18 22:14 Levetiracetam (Keppra) 500 mg Q12HR GT 05/03/18 09:00 06/02/18 08:59 05/05/18 09:01 Metronidazole 100 ml @ 100 mls/hr Q8HR IVPB 05/03/18 14:00 05/10/18 13:59 05/06/18 06:01 Morphine Sulfate (Morphine Sulfate) 2 mg Q4H PRN IVP Severe Pain (Pain Scale 7-10) 05/03/18 08:15 05/10/18 08:14 05/05/18 11:07 Nitroglycerin (Ntg) 0.4 mg Q5M X 3 DOSES PRN SL Prn Chest Pain 05/02/18 22:15 06/01/18 22:14 Ondansetron HCl (Zofran) 4 mg Q6H PRN IVP Nausea & Vomiting 05/02/18 22:15 06/01/18 22:14 Polyethylene Glycol (Miralax) 17 gm HSPRN PRN ORAL Constipation 05/02/18 22:15 06/01/18 22:14 Vancomycin HCl (Vanco rx to dose) 1 ea DAILY PRN MISC Per rx protocol 05/04/18 20:00 06/03/18 19:59 Vancomycin HCl 1 gm/Dextrose 275 ml @ 183.708 mls/hr Q24H IVPB 05/04/18 21:30 05/09/18 21:29 05/05/18 21:57 Allergies: Coded Allergies: No Known Allergies (Unverified , 03/07/17) ROS Limited/Unobtainable: Yes Subjective 58 YO M admitted with infected gastrostomy tube site. Cover for Int Med-Dr Box. LIGIA. Vent dependent on trach Objective Last Vital Signs Date Time Temp Pulse Resp B/P (MAP) Pulse Ox O2 Delivery O2 Flow Rate FiO2 05/06/18 11:19 101 16 30 05/06/18 09:00 101/64 05/06/18 08:00 97.7 100 Mechanical Ventilator 97.7 Laboratory Tests Test 05/06/18 04:50 White Blood Count 13.5 K/UL (4.8-10.8) H Red Blood Count 3.10 M/UL (4.70-6.10) L Hemoglobin 8.6 G/DL (14.2-18.0) L Hematocrit 27.5 % (42.0-52.0) L Mean Corpuscular Volume 89 FL (80-99) Mean Corpuscular Hemoglobin 27.7 PG (27.0-31.0) Mean Corpuscular Hemoglobin Concent 31.3 G/DL (32.0-36.0) L Red Cell Distribution Width 15.8 % (11.6-14.8) H Platelet Count 402 K/UL (150-450) Mean Platelet Volume 5.2 FL (6.5-10.1) L Neutrophils (%) (Auto) 72.4 % (45.0-75.0) Lymphocytes (%) (Auto) 12.1 % (20.0-45.0) L Monocytes (%) (Auto) 8.9 % (1.0-10.0) Eosinophils (%) (Auto) 6.2 % (0.0-3.0) H Basophils (%) (Auto) 0.4 % (0.0-2.0) Sodium Level 137 MMOL/L (136-145) Potassium Level 3.8 MMOL/L (3.5-5.1) Chloride Level 109 MMOL/L (98-107) H Carbon Dioxide Level 24 MMOL/L (21-32) Anion Gap 5 mmol/L (5-15) Blood Urea Nitrogen 12 mg/dL (7-18) Creatinine 0.7 MG/DL (0.55-1.30) Estimat Glomerular Filtration Rate > 60 mL/min (>60) Glucose Level 108 MG/DL (74-106) H Calcium Level 8.0 MG/DL (8.5-10.1) L Phosphorus Level 2.8 MG/DL (2.5-4.9) Magnesium Level 1.8 MG/DL (1.8-2.4) Total Bilirubin 0.3 MG/DL (0.2-1.0) Aspartate Amino Transf (AST/SGOT) 13 U/L (15-37) L Alanine Aminotransferase (ALT/SGPT) 14 U/L (12-78) Alkaline Phosphatase 154 U/L (46-116) H Total Protein 6.4 G/DL (6.4-8.2) Albumin 1.2 G/DL (3.4-5.0) L Globulin 5.2 g/dL Albumin/Globulin Ratio 0.2 (1.0-2.7) L Intake and Output 05/05/18 05/06/18 19:00 07:00 Intake Total 1575 ml 1577.416 ml Output Total 300 ml 425 ml Balance 1275 ml 1152.416 ml IV Total 1335 ml 1577.416 ml Tube Feeding 210 ml Other 30 ml Output Urine Total 300 ml 425 ml # Bowel Movements 2 Objective General Appearance: alert, mild distress, thin EENT: PERRL/EOMI, normal ENT inspection Neck: non-tender, normal alignment, supple Cardiovascular: normal peripheral pulses, normal rate, regular rhythm, no gallop/murmur, no JVD Respiratory/Chest: Trach; mech vent; respiratory distress, crackles/rales, rhonchi - bilaterally, expiratory wheezing Abdomen: normal bowel sounds, non tender, soft, no organomegaly, no mass Extremities: normal inspection 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 See pulmonary note. (8) Seizure disorder Assessment & Plan: Continue keppra (9) Atrial fibrillation Assessment & Plan: Continue amiodarone per cardiology (10) CHF (congestive heart failure) Assessment & Plan: See cardiology note. (11) Diabetes mellitus type II, uncontrolled (12) Cerebral vascular disease (13) Feeding by G-tube Status: not improved Aaron Solis MD May 06, 2018 12:35
--- NOTE | 2018-05-06 14:02 | Diagnostic Imaging Report ---
Indication: Reason For Exam: TUBE PLCMT Technique: Supine view of the upper abdomen after injection of water-soluble contrast into gastrostomy Comparison: none Findings: Contrast opacifies the stomach. No contrast extravasation is demonstrated. The bowel gas pattern is unremarkable. Incidentally noted is an AICD Impression: Satisfactory position of gastrostomy tube
--- NOTE | 2018-05-06 15:48 | Infectious Diseases Prog Note ---
Assessment/Plan Assessment/Plan Abx: IV Vancomycin 05/03 x1 Cefepime 05/03- Flagyl 05/03 Assessment: GT site cellulitis; much improved -wound cx KPC/MDR K. pna, MDR P. 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 -Bcx NTD ISAURO, resolving Multiple lower extremity decubitus (including stage IV sacral decubitus) w/ likely chronic OM- no signs of active infection -04/17 wound cx L trochanter: ESBL P. stuartti (colonizer) 02/2018 [facility] x: MDR Providencia (+ skin colonizer ) Bone scan limited for eval of osteomyelitis. ( due to contracted Ext. ) -s/p 2 weeks of treatment 02/2018 -L hip necrotic/unstagelable decubitus ulcer SP Debridement 11/29 ; Wnd Cx : ACB and Kleb and Strp GrG , MRSA REcent Sepsis 2ry to HCAP, MDR 04/2018, s/p Rx -sp cx S. maltophilia (S bactrim, levaquin), MDR PsA (S Amikacin, Genta) Hx of MSSA bacteremia 11/2017 2ry to infected sacral wound ( SP 4 wks AB rx ) Hx of Pseudomonas urinary tract infection. hx of SCx: MDR-PSA ( colonizer ) Ch transaminitis /cirrhosis Hep C Ab + VDRF Status post trach and percutaneous endoscopic gastrostomy. Dementia Seizure disorder. History of pacemaker placement/AICD -hx of Vtach. Hypertension. COPD. Diabetes. Afib Cardiomyopathy Rheumatic tricuspid valve disease FTT GERD CVA/TIA [facility] resident NKDA FUll code Plan: -Switch empiric IV Vanco #4 to Daptomycin -Switch Cefepime and Flagyl #4 to Zosyn for GT site cellulitis -will treat for total of 7 days -04/29 SPIV Bactrim 5mg/kg q8hr #10 (S.maltophilia PNA), Meropenem #11, IV Amikacin and INH colistin #9 (MDR PsA) -04/18 SP IV Vanco and Zosyn #4 -03/04 SP Meropenem #14 -15 SP IV Vanco #7 -4/6 SP vancomycin and Zosyn d#3 -2/7 SP IV Vancomycin #28 -12/16 SP Meropenem #14 -11/22/17 SP IV Zosyn d# 3 -f/u cx -Monitor CBC/BMP, temperatures -wound care per hospital protocol -Sx f/u -trach/peg care -aspiration precautions Thank you for this consultation. Will continue to monitor off abx. Discussed with RN Subjective Allergies: Coded Allergies: No Known Allergies (Unverified , 03/07/17) Subjective afebrile at 2l NC WBC b/t 11-13 BxNTD GT re-placed Objective Vital Signs Last 24 Hour Vital Signs Date Time Temp Pulse Resp B/P (MAP) Pulse Ox O2 Delivery O2 Flow Rate FiO2 05/06/18 14:53 101 16 30 05/06/18 13:23 103 19 30 05/06/18 12:00 30 05/06/18 12:00 101 05/06/18 12:00 98.7 106 19 113/60 100 Mechanical Ventilator 30 98.7 05/06/18 11:19 101 16 30 05/06/18 09:00 97 101/64 05/06/18 08:57 97 18 30 05/06/18 08:00 97.7 100 22 101/64 100 Mechanical Ventilator 30 97.7 05/06/18 08:00 97 05/06/18 08:00 30 05/06/18 07:22 98 19 100 Mechanical Ventilator 30 05/06/18 07:14 96 18 30 05/06/18 07:14 98 18 100 Mechanical Ventilator 30 05/06/18 05:26 105 16 30 05/06/18 04:00 30 05/06/18 04:00 98.1 99 36 107/66 100 Mechanical Ventilator 30 98.1 05/06/18 04:00 95 05/06/18 03:20 101 16 30 05/06/18 00:59 107 16 30 05/06/18 00:00 101 05/06/18 00:00 97.9 99 27 119/68 100 Mechanical Ventilator 30 97.9 05/05/18 23:30 101 18 30 05/05/18 22:40 102 14 100 Mechanical Ventilator 30 05/05/18 22:30 100 23 100 Mechanical Ventilator 30 05/05/18 22:30 30 05/05/18 21:00 107 104/63 05/05/18 21:00 108 18 30 05/05/18 20:00 98.1 107 27 104/63 100 Mechanical Ventilator 30 98.1 05/05/18 20:00 30 05/05/18 19:44 103 18 18:45 101 18 30 05/05/18 16:44 97 17 30 05/05/18 16:00 30 05/05/18 16:00 98.8 117 19 100/65 100 Mechanical Ventilator 30 98.8 05/05/18 16:00 103 Height (Feet): 5 Height (Inches): 7.00 Weight (Pounds): 108 Objective General Appearance: alert, mild distress, thin EENT: PERRL/EOMI, normal ENT inspection Neck: non-tender, normal alignment, supple Cardiovascular: normal peripheral pulses, normal rate, regular rhythm, no gallop/murmur, no JVD Respiratory/Chest: respiratory distress, crackles/rales, rhonchi - bilaterally , expiratory wheezing Abdomen: normal bowel sounds, non tender, soft, no organomegaly, no mass Extremities: normal inspection 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: 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 normal Skin: normal pigmentation, warm/dry, other - G-tube site cellulitis Laboratory Tests Test 05/06/18 04:50 White Blood Count 13.5 K/UL (4.8-10.8) H Red Blood Count 3.10 M/UL (4.70-6.10) L Hemoglobin 8.6 G/DL (14.2-18.0) L Hematocrit 27.5 % (42.0-52.0) L Mean Corpuscular Volume 89 FL (80-99) Mean Corpuscular Hemoglobin 27.7 PG (27.0-31.0) Mean Corpuscular Hemoglobin Concent 31.3 G/DL (32.0-36.0) L Red Cell Distribution Width 15.8 % (11.6-14.8) H Platelet Count 402 K/UL (150-450) Mean Platelet Volume 5.2 FL (6.5-10.1) L Neutrophils (%) (Auto) 72.4 % (45.0-75.0) Lymphocytes (%) (Auto) 12.1 % (20.0-45.0) L Monocytes (%) (Auto) 8.9 % (1.0-10.0) Eosinophils (%) (Auto) 6.2 % (0.0-3.0) H Basophils (%) (Auto) 0.4 % (0.0-2.0) Sodium Level 137 MMOL/L (136-145) Potassium Level 3.8 MMOL/L (3.5-5.1) Chloride Level 109 MMOL/L (98-107) H Carbon Dioxide Level 24 MMOL/L (21-32) Anion Gap 5 mmol/L (5-15) Blood Urea Nitrogen 12 mg/dL (7-18) Creatinine 0.7 MG/DL (0.55-1.30) Estimat Glomerular Filtration Rate > 60 mL/min (>60) Glucose Level 108 MG/DL (74-106) H Calcium Level 8.0 MG/DL (8.5-10.1) L Phosphorus Level 2.8 MG/DL (2.5-4.9) Magnesium Level 1.8 MG/DL (1.8-2.4) Total Bilirubin 0.3 MG/DL (0.2-1.0) Aspartate Amino Transf (AST/SGOT) 13 U/L (15-37) L Alanine Aminotransferase (ALT/SGPT) 14 U/L (12-78) Alkaline Phosphatase 154 U/L (46-116) H Total Protein 6.4 G/DL (6.4-8.2) Albumin 1.2 G/DL (3.4-5.0) L Globulin 5.2 g/dL Albumin/Globulin Ratio 0.2 (1.0-2.7) L Current Medications Medications (Trade) Dose Ordered Sig/Tameka Route PRN Reason Start Time Stop Time Status Last Admin Dose Admin Acetaminophen (Tylenol) 650 mg Q4H PRN ORAL fever 05/02/18 22:15 06/01/18 22:14 05/03/18 22:43 Al Hydroxide/Mg Hydroxide (Mylanta II) 30 ml Q6H PRN ORAL dyspepsia 05/02/18 22:15 06/01/18 22:14 Albuterol/ Ipratropium (Albuterol/ Ipratropium) 3 ml EVERY 8 HOURS HHN 05/03/18 06:00 05/08/18 05:59 05/06/18 15:27 Amiodarone HCl (Cordarone) 200 mg DAILY GT 05/03/18 09:00 06/02/18 08:59 05/05/18 09:01 Carvedilol (Coreg) 6.25 mg EVERY 12 HOURS GT 05/03/18 21:00 06/02/18 08:59 05/04/18 21:40 Cefepime HCl 1 gm/ Dextrose 110 ml @ 220 mls/hr EVERY 12 HOURS IVPB 05/03/18 21:00 05/10/18 20:59 05/06/18 09:14 Dextrose (Dextrose 50%) STAT PRN IV Hypoglycemia 05/06/18 15:15 06/05/18 15:14 Dextrose (Dextrose 50%) STAT PRN IV Hypoglycemia 05/06/18 15:15 06/05/18 15:14 Dextrose/Sodium Chloride 1,000 ml @ 75 mls/hr [id number] IV 05/02/18 22:04 06/01/18 22:03 05/06/18 06:01 Diphenhydramine HCl (Benadryl) 25 mg Q6H PRN ORAL Itching/Pruritis 05/02/18 22:15 06/01/18 22:14 Levetiracetam (Keppra) 500 mg Q12HR GT 05/03/18 09:00 06/02/18 08:59 05/05/18 09:01 Metronidazole 100 ml @ 100 mls/hr Q8HR IVPB 05/03/18 14:00 05/10/18 13:59 05/06/18 14:29 Morphine Sulfate (Morphine Sulfate) 2 mg Q4H PRN IVP Severe Pain (Pain Scale 7-10) 05/03/18 08:15 05/10/18 08:14 05/05/18 11:07 Nitroglycerin (Ntg) 0.4 mg Q5M X 3 DOSES PRN SL Prn Chest Pain 05/02/18 22:15 06/01/18 22:14 Ondansetron HCl (Zofran) 4 mg Q6H PRN IVP Nausea & Vomiting 05/02/18 22:15 06/01/18 22:14 Polyethylene Glycol (Miralax) 17 gm HSPRN PRN ORAL Constipation 05/02/18 22:15 06/01/18 22:14 Vancomycin HCl (Vanco rx to dose) 1 ea DAILY PRN MISC Per rx protocol 05/04/18 20:00 06/03/18 19:59 Vancomycin HCl 1 gm/Dextrose 275 ml @ 183.708 mls/hr Q24H IVPB 05/04/18 21:30 05/09/18 21:29 05/05/18 21:57 Radha Saini M.D. May 06, 2018 15:48
[2018-05-06 16:00] VITALS: BP 105/64
[2018-05-06] MEDS: Piperacillin/Tazobactam 3.375 GM in D5W 110 ML IVPB SCH (17:34)
[2018-05-06 20:00] VITALS: BP 104/65
[2018-05-06] MEDS: DAPTOMYCIN IV SCH (21:31)
[2018-05-06] MEDS: NS IV SCH (21:31)
--- NOTE | 2018-05-06 22:14 | General Surgery Progress Note ---
General Surgery-Progress Note Subjective Additional Comments tachycardia. leukocytosis worse Objective Last 24 Hour Vital Signs Date Time Temp Pulse Resp B/P (MAP) Pulse Ox O2 Delivery O2 Flow Rate FiO2 05/06/18 21:00 106 104/65 05/06/18 20:57 103 22 30 05/06/18 18:51 101 22 30 05/06/18 16:50 105 17 30 05/06/18 16:00 30 05/06/18 16:00 105 05/06/18 16:00 98.6 104 20 105/64 100 Mechanical Ventilator 30 98.6 05/06/18 15:37 101 18 100 Mechanical Ventilator 30 05/06/18 15:27 107 18 100 Mechanical Ventilator 30 05/06/18 14:53 101 16 30 05/06/18 13:23 103 19 30 05/06/18 12:00 30 05/06/18 12:00 101 05/06/18 12:00 98.7 106 19 113/60 100 Mechanical Ventilator 30 98.7 05/06/18 11:19 101 16 30 05/06/18 09:00 97 101/64 05/06/18 08:57 97 18 30 05/06/18 08:00 97.7 100 22 101/64 100 Mechanical Ventilator 30 97.7 05/06/18 08:00 97 05/06/18 08:00 30 05/06/18 07:22 98 19 100 Mechanical Ventilator 30 05/06/18 07:14 96 18 30 05/06/18 07:14 98 18 100 Mechanical Ventilator 30 05/06/18 05:26 105 16 30 05/06/18 04:00 30 05/06/18 04:00 98.1 99 36 107/66 100 Mechanical Ventilator 30 98.1 05/06/18 04:00 95 05/06/18 03:20 101 16 30 05/06/18 00:59 107 16 30 05/06/18 00:00 101 05/06/18 00:00 97.9 99 27 119/68 100 Mechanical Ventilator 30 97.9 05/05/18 23:30 101 18 30 05/05/18 22:40 102 14 100 Mechanical Ventilator 30 05/05/18 22:30 100 23 100 Mechanical Ventilator 30 05/05/18 22:30 30 I&O Intake and Output 05/05/18 05/06/18 19:00 07:00 Intake Total 1575 ml 1652.416 ml Output Total 300 ml 425 ml Balance 1275 ml 1227.416 ml IV Total 1335 ml 1652.416 ml Tube Feeding 210 ml Other 30 ml Output Urine Total 300 ml 425 ml # Bowel Movements 2 Wound: other - see below Drains: other - g tube replaced by GI Cardiovascular: other - tachy Respiratory: decreased breath sounds Abdomen: other - g tube site wound Extremities: other - see wound care photos Laboratory Tests Test 05/06/18 04:50 White Blood Count 13.5 K/UL (4.8-10.8) H Red Blood Count 3.10 M/UL (4.70-6.10) L Hemoglobin 8.6 G/DL (14.2-18.0) L Hematocrit 27.5 % (42.0-52.0) L Mean Corpuscular Volume 89 FL (80-99) Mean Corpuscular Hemoglobin 27.7 PG (27.0-31.0) Mean Corpuscular Hemoglobin Concent 31.3 G/DL (32.0-36.0) L Red Cell Distribution Width 15.8 % (11.6-14.8) H Platelet Count 402 K/UL (150-450) Mean Platelet Volume 5.2 FL (6.5-10.1) L Neutrophils (%) (Auto) 72.4 % (45.0-75.0) Lymphocytes (%) (Auto) 12.1 % (20.0-45.0) L Monocytes (%) (Auto) 8.9 % (1.0-10.0) Eosinophils (%) (Auto) 6.2 % (0.0-3.0) H Basophils (%) (Auto) 0.4 % (0.0-2.0) Sodium Level 137 MMOL/L (136-145) Potassium Level 3.8 MMOL/L (3.5-5.1) Chloride Level 109 MMOL/L (98-107) H Carbon Dioxide Level 24 MMOL/L (21-32) Anion Gap 5 mmol/L (5-15) Blood Urea Nitrogen 12 mg/dL (7-18) Creatinine 0.7 MG/DL (0.55-1.30) Estimat Glomerular Filtration Rate > 60 mL/min (>60) Glucose Level 108 MG/DL (74-106) H Calcium Level 8.0 MG/DL (8.5-10.1) L Phosphorus Level 2.8 MG/DL (2.5-4.9) Magnesium Level 1.8 MG/DL (1.8-2.4) Total Bilirubin 0.3 MG/DL (0.2-1.0) Aspartate Amino Transf (AST/SGOT) 13 U/L (15-37) L Alanine Aminotransferase (ALT/SGPT) 14 U/L (12-78) Alkaline Phosphatase 154 U/L (46-116) H Total Protein 6.4 G/DL (6.4-8.2) Albumin 1.2 G/DL (3.4-5.0) L Globulin 5.2 g/dL Albumin/Globulin Ratio 0.2 (1.0-2.7) L Plan Problems: (1) Sacral decubitus ulcer, stage IV Assessment & Plan: Surgery: stage IV sacral decubitus ulcer - clean, no signs of active infection, no tracking, down to coccyx, some granulation tissue, no significant fibrinous tissue stage IV left hip decubitus ulcer - clean, no signs of active infection, mild 3 o'clock tracking, some granulation tissue, mild fibrinous tissue stage IV left buttock decubitus ulcer - clean, no signs of active infection, no tracking, some granulation tissue, mild fibrinous tissue stage IV right hip decubitus ulcer - clean, no signs of active infection, no tracking, some granulation tissue, moderate fibrinous tissue stage IV right buttock decubitus ulcer - clean, no signs of active infection, no tracking, some granulation tissue, moderate fibrinous tissue bilateral heel/foot wounds - no signs of active infection. abdominal g tube site wounds - defer to GI. g tube recently replaced. All wounds present upon admission. As for care, for now please was wounds, place dry guaze to wound bed, then cover with foam dressing or ABD 2-3 times per day. need debridement of right hip and buttock wounds to help with healing - pending consent thank you for this consultation. will follow with recs. (2) Pressure ulcer, hip, left, unstageable Derek Dong May 06, 2018 22:14
[2018-05-07] VITALS: BP 116/54
[2018-05-07] MEDS: Piperacillin/Tazobactam 3.375 GM in D5W 110 ML IVPB SCH ×3 (00:06→16:55)
[2018-05-07 04:00] VITALS: BP 95/65
[2018-05-07 04:15] LABS: BASOPHILS % (AUTO) 0.5 % (0.0-2.0); EOSINOPHILS % (AUTO) 3.6 % (0.0-3.0); HEMATOCRIT 26.7 % (42.0-52.0); HEMOGLOBIN 8.3 G/DL (14.2-18.0); LYMPHOCYTES % (AUTO) 9.1 % (20.0-45.0); MEAN CORPUSCULAR VOLUME 89 FL (80-99); MONOCYTES % (AUTO) 5.9 % (1.0-10.0); NEUTROPHILS % (AUTO) 80.8 % (45.0-75.0); PLATELET COUNT 416 K/UL (150-450); RED BLOOD COUNT 2.99 M/UL (4.70-6.10); RED CELL DISTRIBUTION WIDTH 15.8 % (11.6-14.8); WHITE BLOOD COUNT 16.2 K/UL (4.8-10.8)
[2018-05-07 04:40] LABS: ALANINE AMINOTRANSFERASE 8 U/L (12-78); ALBUMIN 1.2 G/DL (3.4-5.0); ALBUMIN/GLOBULIN RATIO 0.2 (1.0-2.7); ALKALINE PHOSPHATASE 148 U/L (46-116); ANION GAP 5 mmol/L (5-15); ASPARTATE AMINO TRANSFERASE 15 U/L (15-37); BILIRUBIN,TOTAL 0.4 MG/DL (0.2-1.0); BLOOD UREA NITROGEN 11 mg/dL (7-18); CALCIUM 7.9 MG/DL (8.5-10.1); CARBON DIOXIDE 22 MMOL/L (21-32); CHLORIDE 109 MMOL/L (98-107); CREATININE 0.7 MG/DL (0.55-1.30); PHOSPHORUS 2.9 MG/DL (2.5-4.9); POTASSIUM 3.6 MMOL/L (3.5-5.1); SODIUM 136 MMOL/L (136-145)
[2018-05-07] MEDS: Albuterol/Ipratropium 3ml neb HHN SCH ×3 (07:39→23:00)
[2018-05-07 08:00] VITALS: BP 124/69
[2018-05-07] MEDS: levETIRAcetam 500mg/5ml Liquid GT SCH ×2 (08:35→22:21)
[2018-05-07] MEDS: D5 1/2NS 1,000 ML IV SCH ×2 (08:35→22:22)
[2018-05-07] MEDS: Amiodarone 200mg tab GT SCH (08:35)
[2018-05-07] MEDS: Carvedilol 6.25mg Tab GT SCH ×2 (08:36→21:00)
--- NOTE | 2018-05-07 10:03 | Pulmonolgy Critical Care Note ---
Critical Care - Asmt/Plan Problems: (1) G-tube site cellulitis (2) Gastrostomy tube skin breakdown (3) Ventilator dependence (4) Sacral decubitus ulcer, stage IV (5) AICD (automatic cardioverter/defibrillator) present (6) EF of 30 (7) Pressure ulcer, hip, left, unstageable Respiratory: monitor respiratory rate, adjust FIO2, CXR Cardiac: continue to monitor HR/BP Renal: F/U I&O, keep IV fluid Infectious Disease: check cultures Gastrointestinal: continue feedings/current rate Endocrine: monitor blood sugar Hematologic: monitor H/H, transfuse if hgb<8.5 Neurologic: PRN Ativan, PRN Morphine, keep patient comfortable Affect: PRN ativan Prophylaxis: Heparin Time Spent (Minutes): 40 Notes Reviewed: cardio, renal Discussed with: nurses, consultants, pillowcase sewerdigital community manager - Objective Last 24 Hour Vital Signs Date Time Temp Pulse Resp B/P (MAP) Pulse Ox O2 Delivery O2 Flow Rate FiO2 05/07/18 09:16 113 16 30 05/07/18 08:36 122 124/69 05/07/18 08:00 30 05/07/18 08:00 116 05/07/18 08:00 98.2 20 20 124/69 100 Mechanical Ventilator 30 98.2 05/07/18 07:49 112 15 100 Mechanical Ventilator 30 05/07/18 07:39 113 15 100 Mechanical Ventilator 30 05/07/18 07:15 112 19 30 05/07/18 05:13 118 17 30 05/07/18 04:00 115 05/07/18 04:00 98.9 18 19 95/65 100 Mechanical Ventilator 30 98.9 05/07/18 04:00 30 05/07/18 03:00 114 22 30 05/07/18 01:10 107 19 30 05/07/18 00:00 98.9 89 19 116/54 100 Mechanical Ventilator 30 98.9 05/06/18 23:04 110 20 100 Mechanical Ventilator 30 05/06/18 22:54 110 19 100 Mechanical Ventilator 30 05/06/18 22:54 110 19 30 05/06/18 21:00 106 104/65 05/06/18 20:57 103 22 30 05/06/18 20:00 30 05/06/18 20:00 98 05/06/18 20:00 99.0 100 21 104/65 100 Mechanical Ventilator 30 99.0 05/06/18 18:51 101 22 30 05/06/18 16:50 105 17 30 05/06/18 16:00 30 05/06/18 16:00 105 05/06/18 16:00 98.6 104 20 105/64 100 Mechanical Ventilator 30 98.6 05/06/18 15:37 101 18 100 Mechanical Ventilator 30 05/06/18 15:27 107 18 100 Mechanical Ventilator 30 05/06/18 14:53 101 16 30 05/06/18 13:23 103 19 30 05/06/18 12:00 30 05/06/18 12:00 101 05/06/18 12:00 98.7 106 19 113/60 100 Mechanical Ventilator 30 98.7 05/06/18 11:19 101 16 30 Status: awake Condition: critical Neck: full ROM Lungs: chest wall tender Heart: HR/BP stable, regular Abdomen: soft, active bowel sounds Extremities: no C/C/E, edema Critical Care - Subjective ROS Limited/Unobtainable: Yes Condition: critical, improving EKG Rhythm: Sinus Rhythm FI02: 30 Vent Support Breath Rate: 14 Vent Support Mode: AC Vent Tidal Volume: 600 Sputum Amount: Moderate PEEP: 5.0 PIP: 28 Tube Feeding Amount: 35 I&O: Intake and Output 05/06/18 05/07/18 19:00 07:00 Intake Total 1247.5 ml 745.0 ml Output Total 250 ml 600 ml Balance 997.5 ml 145.0 ml IV Total 1247.5 ml 745.0 ml Output Urine Total 250 ml 600 ml # Bowel Movements 1 2 Labs: Laboratory Tests Test 05/07/18 03:36 White Blood Count 16.2 K/UL (4.8-10.8) H Red Blood Count 2.99 M/UL (4.70-6.10) L Hemoglobin 8.3 G/DL (14.2-18.0) L Hematocrit 26.7 % (42.0-52.0) L Mean Corpuscular Volume 89 FL (80-99) Mean Corpuscular Hemoglobin 27.9 PG (27.0-31.0) Mean Corpuscular Hemoglobin Concent 31.2 G/DL (32.0-36.0) L Red Cell Distribution Width 15.8 % (11.6-14.8) H Platelet Count 416 K/UL (150-450) Mean Platelet Volume 5.2 FL (6.5-10.1) L Neutrophils (%) (Auto) 80.8 % (45.0-75.0) H Lymphocytes (%) (Auto) 9.1 % (20.0-45.0) L Monocytes (%) (Auto) 5.9 % (1.0-10.0) Eosinophils (%) (Auto) 3.6 % (0.0-3.0) H Basophils (%) (Auto) 0.5 % (0.0-2.0) Sodium Level 136 MMOL/L (136-145) Potassium Level 3.6 MMOL/L (3.5-5.1) Chloride Level 109 MMOL/L (98-107) H Carbon Dioxide Level 22 MMOL/L (21-32) Anion Gap 5 mmol/L (5-15) Blood Urea Nitrogen 11 mg/dL (7-18) Creatinine 0.7 MG/DL (0.55-1.30) Estimat Glomerular Filtration Rate > 60 mL/min (>60) Glucose Level 83 MG/DL (74-106) Calcium Level 7.9 MG/DL (8.5-10.1) L Phosphorus Level 2.9 MG/DL (2.5-4.9) Magnesium Level 1.7 MG/DL (1.8-2.4) L Total Bilirubin 0.4 MG/DL (0.2-1.0) Aspartate Amino Transf (AST/SGOT) 15 U/L (15-37) Alanine Aminotransferase (ALT/SGPT) 8 U/L (12-78) L Alkaline Phosphatase 148 U/L (46-116) H Total Protein 6.3 G/DL (6.4-8.2) L Albumin 1.2 G/DL (3.4-5.0) L Globulin 5.1 g/dL Albumin/Globulin Ratio 0.2 (1.0-2.7) L Shani Moses MD May 07, 2018 10:03
--- NOTE | 2018-05-07 11:02 | GI Progress Note ---
Assessment/Plan Problems: (1) Diabetes mellitus type II, uncontrolled ICD Codes: E11.65 - Type 2 diabetes mellitus with hyperglycemia SNOMED: 49116206, 260632342 (2) G-tube site cellulitis ICD Codes: K94.22 - Gastrostomy infection; L03.319 - Cellulitis of trunk, unspecified SNOMED: 256500212, 389003227 (3) Gastrostomy tube skin breakdown ICD Codes: K94.29 - Other complications of gastrostomy SNOMED: 021488501 (4) Anemia ICD Codes: D64.9 - Anemia, unspecified SNOMED: 435043022 (5) Feeding by G-tube ICD Codes: Z93.1 - Gastrostomy status SNOMED: 334642733, 365001568 (6) Transaminitis ICD Codes: R74.0 - Nonspecific elevation of levels of transaminase and lactic acid dehydrogenase [LDH] SNOMED: 494459388 Status: progressing Status Narrative Discussed with Dr. Alex. Assessment/Plan very poorly cared for GT site abdominal gastric acid burn from leaking GT macerated abdominal skin overall GT site cellulitis and leak greatly improved GJ scheduled for tomorrow. >> will obtain 2 MD consent - GTFs now, NPO @ DE. - hold all blood thinners tonight. GT site care >> requires TID/prn wound care dressing GTFs per RD, start trial prn transfusions ppi abx per ID fu labs The patient was seen and examined at bedside and all new and available data was reviewed in the patients chart. I agree with the above findings, impression and plan. (Patient seen earlier today. Signature stamp does not reflect patient encounter time.). - Niraj Alex MD Subjective Subjective limited Objective Last 24 Hour Vital Signs Date Time Temp Pulse Resp B/P (MAP) Pulse Ox O2 Delivery O2 Flow Rate FiO2 05/07/18 09:16 113 16 30 05/07/18 08:36 122 124/69 05/07/18 08:00 30 05/07/18 08:00 116 05/07/18 08:00 98.2 20 20 124/69 100 Mechanical Ventilator 30 98.2 05/07/18 07:49 112 15 100 Mechanical Ventilator 30 05/07/18 07:39 113 15 100 Mechanical Ventilator 30 05/07/18 07:15 112 19 30 05/07/18 05:13 118 17 30 05/07/18 04:00 115 05/07/18 04:00 98.9 18 19 95/65 100 Mechanical Ventilator 30 98.9 05/07/18 04:00 30 05/07/18 03:00 114 22 30 05/07/18 01:10 107 19 30 05/07/18 00:00 98.9 89 19 116/54 100 Mechanical Ventilator 30 98.9 05/06/18 23:04 110 20 100 Mechanical Ventilator 30 05/06/18 22:54 110 19 100 Mechanical Ventilator 30 05/06/18 22:54 110 19 30 05/06/18 21:00 106 104/65 05/06/18 20:57 103 22 30 05/06/18 20:00 30 05/06/18 20:00 98 05/06/18 20:00 99.0 100 21 104/65 100 Mechanical Ventilator 30 99.0 05/06/18 18:51 101 22 30 05/06/18 16:50 105 17 30 05/06/18 16:00 30 05/06/18 16:00 105 05/06/18 16:00 98.6 104 20 105/64 100 Mechanical Ventilator 30 98.6 05/06/18 15:37 101 18 100 Mechanical Ventilator 30 05/06/18 15:27 107 18 100 Mechanical Ventilator 30 05/06/18 14:53 101 16 30 05/06/18 13:23 103 19 30 05/06/18 12:00 30 05/06/18 12:00 101 05/06/18 12:00 98.7 106 19 113/60 100 Mechanical Ventilator 30 98.7 05/06/18 11:19 101 16 30 Intake and Output 05/06/18 05/07/18 19:00 07:00 Intake Total 1247.5 ml 745.0 ml Output Total 250 ml 600 ml Balance 997.5 ml 145.0 ml IV Total 1247.5 ml 745.0 ml Output Urine Total 250 ml 600 ml # Bowel Movements 1 2 Laboratory Tests Test 05/07/18 03:36 White Blood Count 16.2 K/UL (4.8-10.8) H Red Blood Count 2.99 M/UL (4.70-6.10) L Hemoglobin 8.3 G/DL (14.2-18.0) L Hematocrit 26.7 % (42.0-52.0) L Mean Corpuscular Volume 89 FL (80-99) Mean Corpuscular Hemoglobin 27.9 PG (27.0-31.0) Mean Corpuscular Hemoglobin Concent 31.2 G/DL (32.0-36.0) L Red Cell Distribution Width 15.8 % (11.6-14.8) H Platelet Count 416 K/UL (150-450) Mean Platelet Volume 5.2 FL (6.5-10.1) L Neutrophils (%) (Auto) 80.8 % (45.0-75.0) H Lymphocytes (%) (Auto) 9.1 % (20.0-45.0) L Monocytes (%) (Auto) 5.9 % (1.0-10.0) Eosinophils (%) (Auto) 3.6 % (0.0-3.0) H Basophils (%) (Auto) 0.5 % (0.0-2.0) Sodium Level 136 MMOL/L (136-145) Potassium Level 3.6 MMOL/L (3.5-5.1) Chloride Level 109 MMOL/L (98-107) H Carbon Dioxide Level 22 MMOL/L (21-32) Anion Gap 5 mmol/L (5-15) Blood Urea Nitrogen 11 mg/dL (7-18) Creatinine 0.7 MG/DL (0.55-1.30) Estimat Glomerular Filtration Rate > 60 mL/min (>60) Glucose Level 83 MG/DL (74-106) Calcium Level 7.9 MG/DL (8.5-10.1) L Phosphorus Level 2.9 MG/DL (2.5-4.9) Magnesium Level 1.7 MG/DL (1.8-2.4) L Total Bilirubin 0.4 MG/DL (0.2-1.0) Aspartate Amino Transf (AST/SGOT) 15 U/L (15-37) Alanine Aminotransferase (ALT/SGPT) 8 U/L (12-78) L Alkaline Phosphatase 148 U/L (46-116) H Total Protein 6.3 G/DL (6.4-8.2) L Albumin 1.2 G/DL (3.4-5.0) L Globulin 5.1 g/dL Albumin/Globulin Ratio 0.2 (1.0-2.7) L Height (Feet): 5 Height (Inches): 7.00 Weight (Pounds): 108 General Appearance: WD/WN, no apparent distress, alert Cardiovascular: normal rate Respiratory/Chest: normal breath sounds, no respiratory distress Abdominal Exam: normal bowel sounds, non tender, soft, GT site - improving Extremities: non-tender Jessica Last NP May 07, 2018 11:02
[2018-05-07 12:00] VITALS: BP 97/58
--- NOTE | 2018-05-07 12:44 | Infectious Diseases Prog Note ---
Assessment/Plan Assessment/Plan Abx: IV Vancomycin 05/03 x1 Cefepime 05/03- Flagyl 05/03 Assessment: GT site cellulitis; much improved -wound cx KPC/MDR K. pna, MDR P. 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 -Bcx NTD ISAURO, resolving Multiple lower extremity decubitus (including stage IV sacral decubitus) w/ likely chronic OM- no signs of active infection -04/17 wound cx L trochanter: ESBL P. stuartti (colonizer) 02/2018 Wnd[facility] x: MDR Providencia (+ skin colonizer ) Bone scan limited for eval of osteomyelitis. ( due to contracted Ext. ) -s/p 2 weeks of treatment 02/2018 -L hip necrotic/unstagelable decubitus ulcer SP Debridement 11/29 ; Wnd Cx : ACB and Kleb and Strp GrG , MRSA REcent Sepsis 2ry to HCAP, MDR 04/2018, s/p Rx -sp cx S. maltophilia (S bactrim, levaquin), MDR PsA (S Amikacin, Genta) Hx of MSSA bacteremia 11/2017 2ry to infected sacral wound ( SP 4 wks AB rx ) Hx of Pseudomonas urinary tract infection. hx of SCx: MDR-PSA ( colonizer ) Ch transaminitis /cirrhosis Hep C Ab + VDRF Status post trach and percutaneous endoscopic gastrostomy. Dementia Seizure disorder. History of pacemaker placement/AICD -hx of Vtach. Hypertension. COPD. Diabetes. Afib Cardiomyopathy Rheumatic tricuspid valve disease FTT GERD CVA/TIA [facility] resident NKDA FUll code Plan: -Continue IV Daptomycin and Zosyn abx d#5/7-10 for GT site cellulitis -if no other additional source of infection, will add Tigecycline to cover CRE in wound cx (currently thought to be colonizer) -05/06 SP Cefepime and Flagyl #4, IV Vanco #4 -04/29 SPIV Bactrim 5mg/kg q8hr #10 (S.maltophilia PNA), Meropenem #11, IV Amikacin and INH colistin #9 (MDR PsA) -04/18 SP IV Vanco and Zosyn #4 -03/04 SP Meropenem #14 -03/01 SP IV Vanco #7 -4/6 SP vancomycin and Zosyn d#3 -/ SP IV Vancomycin # -12/16 SP Meropenem #14 -/05/04 SP IV Zosyn d# 3 -repeat cultures, u/a, Cdiff, CXR -f/u cx -Monitor CBC/BMP, temperatures -wound care per hospital protocol -Sx f/u -trach/peg care -aspiration precautions Thank you for this consultation. Will continue to monitor off abx. Discussed with RN Subjective Allergies: Coded Allergies: No Known Allergies (Unverified , 03/07/17) Subjective afebrile transfered to [facility] - [facility] WBC up to 16 BxNTD Objective Vital Signs Last 24 Hour Vital Signs Date Time Temp Pulse Resp B/P (MAP) Pulse Ox O2 Delivery O2 Flow Rate FiO2 05/07/18 12:00 98.3 102 20 97/58 100 Mechanical Ventilator 30 98.3 05/07/18 11:06 101 17 30 05/07/18 09:16 113 16 30 05/07/18 08:36 122 124/69 05/07/18 08:00 30 05/07/18 08:00 116 05/07/18 08:00 98.2 20 20 124/69 100 Mechanical Ventilator 30 98.2 05/07/18 07:49 112 15 100 Mechanical Ventilator 30 05/07/18 07:39 113 15 100 Mechanical Ventilator 30 05/07/18 07:15 112 19 30 05/07/18 05:13 118 17 30 05/07/18 04:00 115 05/07/18 04:00 98.9 18 19 95/65 100 Mechanical Ventilator 30 98.9 05/07/18 04:00 30 05/07/18 03:00 114 22 30 05/07/18 01:10 107 19 30 05/07/18 00:00 98.9 89 19 116/54 100 Mechanical Ventilator 30 98.9 05/06/18 23:04 110 20 100 Mechanical Ventilator 30 05/06/18 22:54 110 19 100 Mechanical Ventilator 30 05/06/18 22:54 110 19 30 05/06/18 21:00 106 104/65 05/06/18 20:57 103 22 30 05/06/18 20:00 30 05/06/18 20:00 98 05/06/18 20:00 99.0 100 21 104/65 100 Mechanical Ventilator 30 99.0 05/06/18 18:51 101 22 30 05/06/18 16:50 105 17 30 05/06/18 16:00 30 05/06/18 16:00 105 05/06/18 16:00 98.6 104 20 105/64 100 Mechanical Ventilator 30 98.6 05/06/18 15:37 101 18 100 Mechanical Ventilator 30 05/06/18 15:27 107 18 100 Mechanical Ventilator 30 05/06/18 14:53 101 16 30 05/06/18 13:23 103 19 30 Height (Feet): 5 Height (Inches): 7.00 Weight (Pounds): 108 Objective General Appearance: alert, mild distress, thin EENT: PERRL/EOMI, normal ENT inspection Neck: non-tender, normal alignment, supple Cardiovascular: normal peripheral pulses, normal rate, regular rhythm, no gallop/murmur, no JVD Respiratory/Chest: respiratory distress, crackles/rales, rhonchi - bilaterally , expiratory wheezing Abdomen: normal bowel sounds, non tender, soft, no organomegaly, no mass Extremities: normal inspection 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0-45.0) L Monocytes (%) (Auto) 5.9 % (1.0-10.0) Eosinophils (%) (Auto) 3.6 % (0.0-3.0) H Basophils (%) (Auto) 0.5 % (0.0-2.0) Sodium Level 136 MMOL/L (136-145) Potassium Level 3.6 MMOL/L (3.5-5.1) Chloride Level 109 MMOL/L (98-107) H Carbon Dioxide Level 22 MMOL/L (21-32) Anion Gap 5 mmol/L (5-15) Blood Urea Nitrogen 11 mg/dL (7-18) Creatinine 0.7 MG/DL (0.55-1.30) Estimat Glomerular Filtration Rate > 60 mL/min (>60) Glucose Level 83 MG/DL (74-106) Calcium Level 7.9 MG/DL (8.5-10.1) L Phosphorus Level 2.9 MG/DL (2.5-4.9) Magnesium Level 1.7 MG/DL (1.8-2.4) L Total Bilirubin 0.4 MG/DL (0.2-1.0) Aspartate Amino Transf (AST/SGOT) 15 U/L (15-37) Alanine Aminotransferase (ALT/SGPT) 8 U/L (12-78) L Alkaline Phosphatase 148 U/L (46-116) H Total Protein 6.3 G/DL (6.4-8.2) L Albumin 1.2 G/DL (3.4-5.0) L Globulin 5.1 g/dL Albumin/Globulin Ratio 0.2 (1.0-2.7) L Current Medications Medications (Trade) Dose Ordered Sig/Tameka Route PRN Reason Start Time Stop Time Status Last Admin Dose Admin Acetaminophen (Tylenol) 650 mg Q4H PRN ORAL fever 05/02/18 22:15 06/01/18 22:14 05/03/18 22:43 Al Hydroxide/Mg Hydroxide (Mylanta II) 30 ml Q6H PRN ORAL dyspepsia 05/02/18 22:15 06/01/18 22:14 Albuterol/ Ipratropium (Albuterol/ Ipratropium) 3 ml EVERY 8 HOURS HHN 05/03/18 06:00 05/08/18 05:59 05/07/18 07:39 Amiodarone HCl (Cordarone) 200 mg DAILY GT 05/03/18 09:00 06/02/18 08:59 05/07/18 08:35 Carvedilol (Coreg) 6.25 mg EVERY 12 HOURS GT 05/03/18 21:00 06/02/18 08:59 05/07/18 08:36 Daptomycin 200 mg/ Sodium Chloride 55 ml @ 100 mls/hr Q24H IV 05/06/18 21:00 05/13/18 20:59 05/06/18 21:31 Dextrose (Dextrose 50%) STAT PRN IV Hypoglycemia 05/06/18 15:15 06/05/18 15:14 Dextrose (Dextrose 50%) STAT PRN IV Hypoglycemia 05/06/18 15:15 06/05/18 15:14 Dextrose/Sodium Chloride 1,000 ml @ 75 mls/hr [id number] IV 05/02/18 22:04 06/01/18 22:03 05/07/18 08:35 Diphenhydramine HCl (Benadryl) 25 mg Q6H PRN ORAL Itching/Pruritis 05/02/18 22:15 06/01/18 22:14 Levetiracetam (Keppra) 500 mg Q12HR GT 05/03/18 09:00 06/02/18 08:59 05/07/18 08:35 Morphine Sulfate (Morphine Sulfate) 2 mg Q4H PRN IVP Severe Pain (Pain Scale 7-10) 05/03/18 08:15 05/10/18 08:14 05/05/18 11:07 Nitroglycerin (Ntg) 0.4 mg Q5M X 3 DOSES PRN SL Prn Chest Pain 05/02/18 22:15 06/01/18 22:14 Ondansetron HCl (Zofran) 4 mg Q6H PRN IVP Nausea & Vomiting 05/02/18 22:15 06/01/18 22:14 Piperacillin Sod/ Tazobactam Sod 3.375 gm/Dextrose 110 ml @ 27.5 mls/hr Q8HR@0100,0900,1700 IVPB 05/06/18 17:00 05/13/18 16:59 05/07/18 08:36 Polyethylene Glycol (Miralax) 17 gm HSPRN PRN ORAL Constipation 05/02/18 22:15 06/01/18 22:14 Radha Saini M.D. May 07, 2018 12:44
--- NOTE | 2018-05-07 15:05 | Diagnostic Imaging Report ---
Indication: Shortness of breath Technique: One view of the chest Comparison: 05/02/2018 Findings: Tracheostomy, AICD again demonstrated. Lungs and pleural spaces are clear. No significant interim change Impression: Unchanged, over one day, findings as above.
--- NOTE | 2018-05-07 15:41 | General Surgery Progress Note ---
General Surgery-Progress Note Subjective Additional Comments leukocytosis worsening. Objective Last 24 Hour Vital Signs Date Time Temp Pulse Resp B/P (MAP) Pulse Ox O2 Delivery O2 Flow Rate FiO2 05/07/18 15:31 104 11 100 Mechanical Ventilator 30 05/07/18 14:51 104 19 30 05/07/18 12:31 98 18 30 05/07/18 12:00 30 05/07/18 12:00 101 05/07/18 12:00 98.3 102 20 97/58 100 Mechanical Ventilator 30 98.3 05/07/18 11:06 101 17 30 05/07/18 09:16 113 16 30 05/07/18 08:36 122 124/69 05/07/18 08:00 30 05/07/18 08:00 116 05/07/18 08:00 98.2 20 20 124/69 100 Mechanical Ventilator 30 98.2 05/07/18 07:49 112 15 100 Mechanical Ventilator 30 05/07/18 07:39 113 15 100 Mechanical Ventilator 30 05/07/18 07:15 112 19 30 05/07/18 05:13 118 17 30 05/07/18 04:00 115 05/07/18 04:00 98.9 18 19 95/65 100 Mechanical Ventilator 30 98.9 05/07/18 04:00 30 05/07/18 03:00 114 22 30 05/07/18 01:10 107 19 30 05/07/18 00:00 98.9 89 19 116/54 100 Mechanical Ventilator 30 98.9 05/06/18 23:04 110 20 100 Mechanical Ventilator 30 05/06/18 22:54 110 19 100 Mechanical Ventilator 30 05/06/18 22:54 110 19 30 05/06/18 21:00 106 104/65 05/06/18 20:57 103 22 30 05/06/18 20:00 30 05/06/18 20:00 98 05/06/18 20:00 99.0 100 21 104/65 100 Mechanical Ventilator 30 99.0 05/06/18 18:51 101 22 30 05/06/18 16:50 105 17 30 05/06/18 16:00 30 05/06/18 16:00 105 05/06/18 16:00 98.6 104 20 105/64 100 Mechanical Ventilator 30 98.6 I&O Intake and Output 05/06/18 05/07/18 19:00 07:00 Intake Total 1247.5 ml 745.0 ml Output Total 250 ml 600 ml Balance 997.5 ml 145.0 ml IV Total 1247.5 ml 745.0 ml Output Urine Total 250 ml 600 ml # Bowel Movements 1 2 Drains: none Cardiovascular: RSR Respiratory: clear Abdomen: soft, flat Extremities: other - see photos Laboratory Tests Test 05/07/18 03:36 White Blood Count 16.2 K/UL (4.8-10.8) H Red Blood Count 2.99 M/UL (4.70-6.10) L Hemoglobin 8.3 G/DL (14.2-18.0) L Hematocrit 26.7 % (42.0-52.0) L Mean Corpuscular Volume 89 FL (80-99) Mean Corpuscular Hemoglobin 27.9 PG (27.0-31.0) Mean Corpuscular Hemoglobin Concent 31.2 G/DL (32.0-36.0) L Red Cell Distribution Width 15.8 % (11.6-14.8) H Platelet Count 416 K/UL (150-450) Mean Platelet Volume 5.2 FL (6.5-10.1) L Neutrophils (%) (Auto) 80.8 % (45.0-75.0) H Lymphocytes (%) (Auto) 9.1 % (20.0-45.0) L Monocytes (%) (Auto) 5.9 % (1.0-10.0) Eosinophils (%) (Auto) 3.6 % (0.0-3.0) H Basophils (%) (Auto) 0.5 % (0.0-2.0) Sodium Level 136 MMOL/L (136-145) Potassium Level 3.6 MMOL/L (3.5-5.1) Chloride Level 109 MMOL/L (98-107) H Carbon Dioxide Level 22 MMOL/L (21-32) Anion Gap 5 mmol/L (5-15) Blood Urea Nitrogen 11 mg/dL (7-18) Creatinine 0.7 MG/DL (0.55-1.30) Estimat Glomerular Filtration Rate > 60 mL/min (>60) Glucose Level 83 MG/DL (74-106) Calcium Level 7.9 MG/DL (8.5-10.1) L Phosphorus Level 2.9 MG/DL (2.5-4.9) Magnesium Level 1.7 MG/DL (1.8-2.4) L Total Bilirubin 0.4 MG/DL (0.2-1.0) Aspartate Amino Transf (AST/SGOT) 15 U/L (15-37) Alanine Aminotransferase (ALT/SGPT) 8 U/L (12-78) L Alkaline Phosphatase 148 U/L (46-116) H Total Protein 6.3 G/DL (6.4-8.2) L Albumin 1.2 G/DL (3.4-5.0) L Globulin 5.1 g/dL Albumin/Globulin Ratio 0.2 (1.0-2.7) L Plan Problems: (1) Sacral decubitus ulcer, stage IV Assessment & Plan: Surgery: stage IV sacral decubitus ulcer - clean, no signs of active infection, no tracking, down to coccyx, some granulation tissue, no significant fibrinous tissue stage IV left hip decubitus ulcer - clean, no signs of active infection, mild 3 o'clock tracking, some granulation tissue, mild fibrinous tissue stage IV left buttock decubitus ulcer - clean, no signs of active infection, no tracking, some granulation tissue, mild fibrinous tissue stage IV right hip decubitus ulcer - clean, no signs of active infection, no tracking, some granulation tissue, moderate fibrinous tissue stage IV right buttock decubitus ulcer - clean, no signs of active infection, no tracking, some granulation tissue, moderate fibrinous tissue bilateral heel/foot wounds - no signs of active infection. abdominal g tube site wounds - defer to GI. g tube recently replaced. All wounds present upon admission. As for care, for now please was wounds, place dry guaze to wound bed, then cover with foam dressing or ABD 2-3 times per day. need debridement of right hip and buttock wounds to help with healing - pending consent. planned GI GJ tube will eval for two physician consent for debridement thank you for this consultation. will follow with recs. (2) Pressure ulcer, hip, left, unstageable Derek Dong May 07, 2018 15:41
[2018-05-07 16:00] VITALS: BP 105/57
--- NOTE | 2018-05-07 16:21 | Internal Med Progress Note ---
Subjective Date of Service: May 07, 2018 Physician Name SolisAaron Attending Physician Roland Box MD Current Medications Medications (Trade) Dose Ordered Sig/Tameka Route PRN Reason Start Time Stop Time Status Last Admin Dose Admin Acetaminophen (Tylenol) 650 mg Q4H PRN ORAL fever 05/02/18 22:15 06/01/18 22:14 05/03/18 22:43 Al Hydroxide/Mg Hydroxide (Mylanta II) 30 ml Q6H PRN ORAL dyspepsia 05/02/18 22:15 06/01/18 22:14 Albuterol/ Ipratropium (Albuterol/ Ipratropium) 3 ml EVERY 8 HOURS HHN 05/03/18 06:00 05/08/18 05:59 05/07/18 15:30 Amiodarone HCl (Cordarone) 200 mg DAILY GT 05/03/18 09:00 06/02/18 08:59 05/07/18 08:35 Carvedilol (Coreg) 6.25 mg EVERY 12 HOURS GT 05/03/18 21:00 06/02/18 08:59 05/07/18 08:36 Daptomycin 200 mg/ Sodium Chloride 55 ml @ 100 mls/hr Q24H IV 05/06/18 21:00 05/13/18 20:59 05/06/18 21:31 Dextrose (Dextrose 50%) STAT PRN IV Hypoglycemia 05/06/18 15:15 06/05/18 15:14 Dextrose (Dextrose 50%) STAT PRN IV Hypoglycemia 05/06/18 15:15 06/05/18 15:14 Dextrose/Sodium Chloride 1,000 ml @ 75 mls/hr [id number] IV 05/02/18 22:04 06/01/18 22:03 05/07/18 08:35 Diphenhydramine HCl (Benadryl) 25 mg Q6H PRN ORAL Itching/Pruritis 05/02/18 22:15 06/01/18 22:14 Levetiracetam (Keppra) 500 mg Q12HR GT 05/03/18 09:00 06/02/18 08:59 05/07/18 08:35 Morphine Sulfate (Morphine Sulfate) 2 mg Q4H PRN IVP Severe Pain (Pain Scale 7-10) 05/03/18 08:15 05/10/18 08:14 05/05/18 11:07 Nitroglycerin (Ntg) 0.4 mg Q5M X 3 DOSES PRN SL Prn Chest Pain 05/02/18 22:15 06/01/18 22:14 Ondansetron HCl (Zofran) 4 mg Q6H PRN IVP Nausea & Vomiting 05/02/18 22:15 06/01/18 22:14 Piperacillin Sod/ Tazobactam Sod 3.375 gm/Dextrose 110 ml @ 27.5 mls/hr Q8HR@0100,0900,1700 IVPB 05/06/18 17:00 05/13/18 16:59 05/07/18 08:36 Polyethylene Glycol (Miralax) 17 gm HSPRN PRN ORAL Constipation 05/02/18 22:15 06/01/18 22:14 Allergies: Coded Allergies: No Known Allergies (Unverified , 03/07/17) ROS Limited/Unobtainable: Yes Subjective 58 YO M admitted with infected gastrostomy tube site. Cover for Int Med-Dr Box. LIGIA. Vent dependent on trach Objective Last Vital Signs Date Time Temp Pulse Resp B/P (MAP) Pulse Ox O2 Delivery O2 Flow Rate FiO2 05/07/18 15:31 104 11 100 Mechanical Ventilator 30 05/07/18 12:00 98.3 97/58 98.3 Laboratory Tests Test 05/07/18 03:36 White Blood Count 16.2 K/UL (4.8-10.8) H Red Blood Count 2.99 M/UL (4.70-6.10) L Hemoglobin 8.3 G/DL (14.2-18.0) L Hematocrit 26.7 % (42.0-52.0) L Mean Corpuscular Volume 89 FL (80-99) Mean Corpuscular Hemoglobin 27.9 PG (27.0-31.0) Mean Corpuscular Hemoglobin Concent 31.2 G/DL (32.0-36.0) L Red Cell Distribution Width 15.8 % (11.6-14.8) H Platelet Count 416 K/UL (150-450) Mean Platelet Volume 5.2 FL (6.5-10.1) L Neutrophils (%) (Auto) 80.8 % (45.0-75.0) H Lymphocytes (%) (Auto) 9.1 % (20.0-45.0) L Monocytes (%) (Auto) 5.9 % (1.0-10.0) Eosinophils (%) (Auto) 3.6 % (0.0-3.0) H Basophils (%) (Auto) 0.5 % (0.0-2.0) Sodium Level 136 MMOL/L (136-145) Potassium Level 3.6 MMOL/L (3.5-5.1) Chloride Level 109 MMOL/L (98-107) H Carbon Dioxide Level 22 MMOL/L (21-32) Anion Gap 5 mmol/L (5-15) Blood Urea Nitrogen 11 mg/dL (7-18) Creatinine 0.7 MG/DL (0.55-1.30) Estimat Glomerular Filtration Rate > 60 mL/min (>60) Glucose Level 83 MG/DL (74-106) Calcium Level 7.9 MG/DL (8.5-10.1) L Phosphorus Level 2.9 MG/DL (2.5-4.9) Magnesium Level 1.7 MG/DL (1.8-2.4) L Total Bilirubin 0.4 MG/DL (0.2-1.0) Aspartate Amino Transf (AST/SGOT) 15 U/L (15-37) Alanine Aminotransferase (ALT/SGPT) 8 U/L (12-78) L Alkaline Phosphatase 148 U/L (46-116) H Total Protein 6.3 G/DL (6.4-8.2) L Albumin 1.2 G/DL (3.4-5.0) L Globulin 5.1 g/dL Albumin/Globulin Ratio 0.2 (1.0-2.7) L Intake and Output 05/06/18 05/07/18 19:00 07:00 Intake Total 1247.5 ml 745.0 ml Output Total 250 ml 600 ml Balance 997.5 ml 145.0 ml IV Total 1247.5 ml 745.0 ml Output Urine Total 250 ml 600 ml # Bowel Movements 1 2 Objective General Appearance: alert, mild distress, thin EENT: PERRL/EOMI, normal ENT inspection Neck: non-tender, normal alignment, supple Cardiovascular: normal peripheral pulses, normal rate, regular rhythm, no gallop/murmur, no JVD Respiratory/Chest: Trach; mech vent; respiratory distress, crackles/rales, rhonchi - bilaterally, expiratory wheezing Abdomen: normal bowel sounds, non tender, soft, no organomegaly, no mass Extremities: normal inspection 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 See pulmonary note. (8) Seizure disorder Assessment & Plan: Continue keppra (9) Atrial fibrillation Assessment & Plan: Continue amiodarone per cardiology (10) CHF (congestive heart failure) Assessment & Plan: See cardiology note. (11) Diabetes mellitus type II, uncontrolled (12) Cerebral vascular disease (13) Feeding by G-tube Aaron Solis MD May 07, 2018 16:21
[2018-05-07 20:00] VITALS: BP 104/64
[2018-05-07] MEDS: NS IV SCH (22:21)
[2018-05-07] MEDS: DAPTOMYCIN IV SCH (22:21)
[2018-05-08] VITALS (7 sets, daily range): BP systolic 96–136; BP diastolic 57–71
[2018-05-08] MEDS: Piperacillin/Tazobactam 3.375 GM in D5W 110 ML IVPB SCH ×3 (01:03→16:54)
[2018-05-08 05:34] LABS: HEMATOCRIT 24.9 % (42.0-52.0); HEMOGLOBIN 7.7 G/DL (14.2-18.0); MEAN CORPUSCULAR VOLUME 88 FL (80-99); PLATELET COUNT 427 K/UL (150-450); RED BLOOD COUNT 2.82 M/UL (4.70-6.10); RED CELL DISTRIBUTION WIDTH 15.1 % (11.6-14.8); WHITE BLOOD COUNT 13.9 K/UL (4.8-10.8)
[2018-05-08 05:58] LABS: ALANINE AMINOTRANSFERASE 8 U/L (12-78); ALBUMIN 1.2 G/DL (3.4-5.0); ALBUMIN/GLOBULIN RATIO 0.2 (1.0-2.7); ALKALINE PHOSPHATASE 141 U/L (46-116); ANION GAP 6 mmol/L (5-15); ASPARTATE AMINO TRANSFERASE 13 U/L (15-37); BILIRUBIN,TOTAL 0.3 MG/DL (0.2-1.0); BLOOD UREA NITROGEN 9 mg/dL (7-18); CALCIUM 7.6 MG/DL (8.5-10.1); CARBON DIOXIDE 24 MMOL/L (21-32); CHLORIDE 108 MMOL/L (98-107); CREATININE 0.7 MG/DL (0.55-1.30); PHOSPHORUS 2.5 MG/DL (2.5-4.9); POTASSIUM 3.1 MMOL/L (3.5-5.1); SODIUM 138 MMOL/L (136-145)
[2018-05-08 06:15] LABS: INR 1.4 (0.9-1.1)
--- NOTE | 2018-05-08 06:58 | Anethesia Preoperative Eval ---
Anesthesia Pre-op PMH/ROS General Date of Evaluation: May 08, 2018 Time of Evaluation: 06:52 Anesthesiologist: brittany ASA Score: ASA 4 Mallampati Score Class I : Soft palate, uvula, fauces, pillars visible Class II: Soft palate, uvula, fauces visible Class III: Soft palate, base of uvula visible Class IV: Only hard plate visible Mallampati Classification: Class II Surgeon: tam Diagnosis: g-tube erosion Surgical Procedure: placement of duodenal/j-tube Anesthesia History: none Family History: no anesthesia problems Allergies: Coded Allergies: No Known Allergies (Unverified , 03/07/17) Medications: see eMAR Past Medical History Cardiovascular: Reports: HTN, valve dz, arrhythmia, other - chf Pulmonary: Reports: asthma, COPD, other - ventdependent, tracheostomy Gastrointestinal/Genitourinary: Reports: GERD, ESRD, other - g-tube feedings 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: Reports: dementia, CVA, TIA, other - encephalopathy, anoxic brain damage Endocrine: Reports: DM Hematology/Immune: Reports: anemia Anesthesia Pre-op Phys. Exam Physician Exam Last Vital Signs Date Time Temp Pulse Resp B/P (MAP) Pulse Ox O2 Delivery O2 Flow Rate FiO2 05/08/18 05:55 106 05/08/18 05:02 17 30 05/08/18 04:00 98.1 96/57 100 Mechanical Ventilator 98.1 Neurologic: other - contractures Cardiovascular: other - irreg, irreg Respiratory: other - tracheostomy, vent dependent vt600, peep 5, ac 14. fio2 .3 Gastrointestinal: other - g-tube Airway Exam Mallampati Score: Class II MO: limited Neck: tracheostomy TMD: 1fb ROM: limited Anesthesia Pre-op A/P Labs Hematology Test 05/08/18 04:54 White Blood Count 13.9 K/UL (4.8-10.8) H Red Blood Count 2.82 M/UL (4.70-6.10) L Hemoglobin 7.7 G/DL (14.2-18.0) L Hematocrit 24.9 % (42.0-52.0) L Mean Corpuscular Volume 88 FL (80-99) Mean Corpuscular Hemoglobin 27.5 PG (27.0-31.0) Mean Corpuscular Hemoglobin Concent 31.1 G/DL (32.0-36.0) L Red Cell Distribution Width 15.1 % (11.6-14.8) H Platelet Count 427 K/UL (150-450) Mean Platelet Volume 5.3 FL (6.5-10.1) L Neutrophils (%) (Auto) % (45.0-75.0) Lymphocytes (%) (Auto) % (20.0-45.0) Monocytes (%) (Auto) % (1.0-10.0) Eosinophils (%) (Auto) % (0.0-3.0) Basophils (%) (Auto) % (0.0-2.0) Neutrophils % (Manual) Pending Lymphocytes % (Manual) Pending Platelet Estimate Pending Platelet Morphology Pending Coagulation Test 05/08/18 04:54 Prothrombin Time Pending Prothromb Time International Ratio Pending Activated Partial Thromboplast Time Pending Chemistry Test 05/08/18 04:54 Sodium Level 138 MMOL/L (136-145) Potassium Level 3.1 MMOL/L (3.5-5.1) L Chloride Level 108 MMOL/L (98-107) H Carbon Dioxide Level 24 MMOL/L (21-32) Anion Gap 6 mmol/L (5-15) Blood Urea Nitrogen 9 mg/dL (7-18) Creatinine 0.7 MG/DL (0.55-1.30) Estimat Glomerular Filtration Rate > 60 mL/min (>60) Glucose Level 112 MG/DL (74-106) H Calcium Level 7.6 MG/DL (8.5-10.1) L Phosphorus Level 2.5 MG/DL (2.5-4.9) Magnesium Level 1.6 MG/DL (1.8-2.4) L Total Bilirubin 0.3 MG/DL (0.2-1.0) Aspartate Amino Transf (AST/SGOT) 13 U/L (15-37) L Alanine Aminotransferase (ALT/SGPT) 8 U/L (12-78) L Alkaline Phosphatase 141 U/L (46-116) H Total Protein 6.3 G/DL (6.4-8.2) L Albumin 1.2 G/DL (3.4-5.0) L Globulin 5.1 g/dL Albumin/Globulin Ratio 0.2 (1.0-2.7) L Risk Assessment & Plan Assessment: asa4 Plan: mac Status Change Before Surgery: No Pre-Antibiotics Drug: zosyn Given Within 1 Hr of Incision: Yes Time Given: 07:00 Steff Cartagena MD May 08, 2018 06:58
[2018-05-08] MEDS ORDERED: Midazolam 2mg/2ml Inj IVP PRN (07:00)
[2018-05-08] MEDS ORDERED: DiphenhydrAMINE 50mg/ml Inj IVP PRN (07:00)
[2018-05-08] MEDS ORDERED: fentaNYL 100 mcg/2 mL IV PRN (07:00)
[2018-05-08] MEDS ORDERED: Atropine Inj 1mg/10ml Syr IV PRN (07:00)
[2018-05-08] MEDS ORDERED: Propofol 200mg/20ml IV ONE ×2 (07:30)
[2018-05-08] MEDS ORDERED: Lidocaine 1% MPF 10mg/ml 5ml ONE (07:30)
--- NOTE | 2018-05-08 07:57 | Pre-Procedure Note/Attestation ---
Pre-Procedure Note/Attestation Complete Prior to Procedure Planned Procedure: not applicable Procedure Narrative: GT placement Indications for Procedure Pre-Operative Diagnosis: jt placement GT leak Attestation I attest that I discussed the nature of the procedure; its benefits; risks and complications; and alternatives (and the risks and benefits of such alternatives ), prior to the procedure, with the patient (or the patient's legal inside sales representative). I attest that, if there was a reasonable possibility of needing a blood transfusion, the patient (or the patient's legal inside sales representative) was given the [facility] standardized written summary, pursuant to the [place] Jw Blood Safety Act ([place] Health and Safety Code # 1645, as amended). I attest that I re-evaluated the patient just prior to the surgery and that there has been no change in the patient's H&P, except as documented below: Niraj Alex MD May 08, 2018 07:57
--- NOTE | 2018-05-08 07:59 | Consultation ---
Consult Note Assessment/Plan patient has very large GT site with sig skin edema around the GT from GT leak. Needs JT placement. Patient ia unable to sign. No family available. D/[employer], since patient is not demented 2 physicians consent is acceptable. so plan for JT placement today Niraj Alex MD May 08, 2018 07:59
--- NOTE | 2018-05-08 09:09 | Immediate Post-Op Evaluation ---
Immediate Post-Op Evalulation Immediate Post-Op Evalulation Procedure: g-tube removal/j-tube placement Date of Evaluation: May 08, 2018 Time of Evaluation: 09:07 IV Fluids: 100ml 0.9ns Blood Products: none Estimated Blood Loss: negligible Blood Pressure Systolic: 106 Blood Pressure Diastolic: 64 Pulse Rate: 94 Respiratory Rate: 14 O2 Sat by Pulse Oximetry: 100 Temperature (Fahrenheit): 98.1 Pain Score (1-10): 0 Nausea: No Vomiting: No Complications none Patient Status: awake, reacts, patent, ventilated Hydration Status: adequate Drug: zosyn Given Within 1 Hr of Incision: Yes Time Given: 07:15 Steff Cartagena MD May 08, 2018 09:09
--- NOTE | 2018-05-08 09:10 | 48 Hour Post Anesthesia Eval ---
Post Anesthesia Evaluation Procedure: g-tube removal/j-tube placement Date of Evaluation: May 08, 2018 Time of Evaluation: 09:09 Blood Pressure Systolic: 115 0: 64 Pulse Rate: 88 Respiratory Rate: 14 Temperature (Fahrenheit): 98.1 O2 Sat by Pulse Oximetry: 100 Airway: patent Nausea: No Vomiting: No Pain Intensity: 0 Hydration Status: adequate Cardiopulmonary Status: stable Post-Anesthesia Complications: none Follow-up care needed: N/A Steff Cartagena MD May 08, 2018 09:10
--- NOTE | 2018-05-08 09:19 | Endoscopy Procedure Note ---
Endoscopy Procedure Note General Indication for Procedure: dysphagia Procedures Performed: EGD Operative Findings/Diagnosis: gu Specimen: none Pt Tolerated Procedure Well: Yes Estimated Blood Loss: none Anesthesia Anesthesiologist: alicia Anesthesia: MAC Inserted Devices Implant(s) used?: No GI Core Measures 50 yrs or older w/o bx or poly: Not Applicable 10yrs. F/U not recommended: Not Applicable Niraj Alex MD May 08, 2018 09:19
[2018-05-08] MEDS: Amiodarone 200mg tab GT SCH (09:46)
[2018-05-08] MEDS: Carvedilol 6.25mg Tab GT SCH ×2 (09:47→21:30)
[2018-05-08] MEDS: levETIRAcetam 500mg/5ml Liquid GT SCH ×2 (09:47→21:30)
--- NOTE | 2018-05-08 10:33 | Pulmonolgy Critical Care Note ---
Critical Care - Asmt/Plan Problems: (1) G-tube site cellulitis (2) Gastrostomy tube skin breakdown (3) Ventilator dependence (4) Sacral decubitus ulcer, stage IV (5) AICD (automatic cardioverter/defibrillator) present (6) EF of 30 (7) Pressure ulcer, hip, left, unstageable Respiratory: monitor respiratory rate, adjust FIO2, CXR Cardiac: continue pressors, continue to monitor HR/BP Renal: F/U I&O Infectious Disease: check cultures Gastrointestinal: continue feedings/current rate, hold feedings Endocrine: check TSH, continue sliding scale insulin Hematologic: monitor H/H, transfuse if hgb<8.5 Neurologic: PRN Morphine, keep patient comfortable Affect: PRN ativan Prophylaxis: Heparin Time Spent (Minutes): 40 Notes Reviewed: cardio, renal Discussed with: nurses, consultants, case repairermanager privacy - Objective Last 24 Hour Vital Signs Date Time Temp Pulse Resp B/P (MAP) Pulse Ox O2 Delivery O2 Flow Rate FiO2 05/08/18 09:47 103 135/74 05/08/18 09:10 208.6 88 14 100 05/08/18 09:09 208.6 94 14 100 05/08/18 09:05 100 16 30 05/08/18 08:00 30 05/08/18 07:08 101 16 Mechanical Ventilator 40 05/08/18 07:07 97 16 30 05/08/18 07:07 Mechanical Ventilator 30 05/08/18 07:07 Mechanical Ventilator 30 05/08/18 05:55 106 05/08/18 05:02 109 17 30 05/08/18 04:00 30 05/08/18 04:00 98.1 107 18 96/57 100 Mechanical Ventilator 30 98.1 05/08/18 03:18 108 18 30 05/08/18 01:28 107 20 30 05/08/18 01:02 99.3 108 17 98/58 100 Mechanical Ventilator 30 99.3 05/08/18 00:00 110 05/08/18 00:00 30 05/07/18 23:17 120 21 30 05/07/18 23:00 120 18 100 Mechanical Ventilator 05/07/18 23:00 120 22 100 Mechanical Ventilator 30 05/07/18 21:30 103 16 30 05/07/18 21:00 110 104/64 05/07/18 20:00 104 05/07/18 20:00 99.2 110 16 104/64 100 Mechanical Ventilator 30 99.2 05/07/18 18:58 101 17 30 05/07/18 17:29 101 16 30 05/07/18 16:00 30 05/07/18 16:00 100 05/07/18 16:00 97.9 104 20 105/57 100 Mechanical Ventilator 30 97.9 05/07/18 15:41 105 19 100 Mechanical Ventilator 30 05/07/18 15:31 104 11 100 Mechanical Ventilator 30 05/07/18 14:51 104 19 30 05/07/18 12:31 98 18 30 05/07/18 12:00 30 05/07/18 12:00 101 05/07/18 12:00 98.3 102 20 97/58 100 Mechanical Ventilator 30 98.3 05/07/18 11:06 101 17 30 Status: sedated Condition: critical Neck: full ROM Lungs: chest wall tender Heart: HR/BP unstable Abdomen: active bowel sounds Extremities: no C/C/E, edema Critical Care - Subjective ROS Limited/Unobtainable: No FI02: 30 Vent Support Breath Rate: 14 Vent Support Mode: AC Vent Tidal Volume: 600 Sputum Amount: Scant PEEP: 5.0 PIP: 22 Tube Feeding Amount: 25 I&O: Intake and Output 05/07/18 05/08/18 19:00 07:00 Intake Total 1270 ml 1120.0 ml Output Total 250 ml 500 ml Balance 1020 ml 620.0 ml Intake Free Water 50 ml 80 ml IV Total 1045 ml 915.0 ml Tube Feeding 175 ml 125 ml Output Urine Total 250 ml 500 ml # Bowel Movements 4 1 Labs: Laboratory Tests Test 05/08/18 04:54 White Blood Count 13.9 K/UL (4.8-10.8) H Red Blood Count 2.82 M/UL (4.70-6.10) L Hemoglobin 7.7 G/DL (14.2-18.0) L Hematocrit 24.9 % (42.0-52.0) L Mean Corpuscular Volume 88 FL (80-99) Mean Corpuscular Hemoglobin 27.5 PG (27.0-31.0) Mean Corpuscular Hemoglobin Concent 31.1 G/DL (32.0-36.0) L Red Cell Distribution Width 15.1 % (11.6-14.8) H Platelet Count 427 K/UL (150-450) Mean Platelet Volume 5.3 FL (6.5-10.1) L Neutrophils (%) (Auto) % (45.0-75.0) Lymphocytes (%) (Auto) % (20.0-45.0) Monocytes (%) (Auto) % (1.0-10.0) Eosinophils (%) (Auto) % (0.0-3.0) Basophils (%) (Auto) % (0.0-2.0) Differential Total Cells Counted 100 Neutrophils % (Manual) 83 % (45-75) H Lymphocytes % (Manual) 9 % (20-45) L Monocytes % (Manual) 4 % (1-10) Eosinophils % (Manual) 4 % (0-3) H Basophils % (Manual) 0 % (0-2) Band Neutrophils 0 % (0-8) Platelet Estimate Increased H Platelet Morphology Normal Hypochromasia 1+ Anisocytosis 1+ Prothrombin Time 14.7 SEC (9.30-11.50) H Prothromb Time International Ratio 1.4 (0.9-1.1) H Activated Partial Thromboplast Time 41 SEC (23-33) H Sodium Level 138 MMOL/L (136-145) Potassium Level 3.1 MMOL/L (3.5-5.1) L Chloride Level 108 MMOL/L (98-107) H Carbon Dioxide Level 24 MMOL/L (21-32) Anion Gap 6 mmol/L (5-15) Blood Urea Nitrogen 9 mg/dL (7-18) Creatinine 0.7 MG/DL (0.55-1.30) Estimat Glomerular Filtration Rate > 60 mL/min (>60) Glucose Level 112 MG/DL (74-106) H Calcium Level 7.6 MG/DL (8.5-10.1) L Phosphorus Level 2.5 MG/DL (2.5-4.9) Magnesium Level 1.6 MG/DL (1.8-2.4) L Total Bilirubin 0.3 MG/DL (0.2-1.0) Aspartate Amino Transf (AST/SGOT) 13 U/L (15-37) L Alanine Aminotransferase (ALT/SGPT) 8 U/L (12-78) L Alkaline Phosphatase 141 U/L (46-116) H Total Protein 6.3 G/DL (6.4-8.2) L Albumin 1.2 G/DL (3.4-5.0) L Globulin 5.1 g/dL Albumin/Globulin Ratio 0.2 (1.0-2.7) L Shani Moses MD May 08, 2018 10:33
--- NOTE | 2018-05-08 11:30 | Procedure Note ---
DATE OF PROCEDURE: 05/08/2018 SURGEON: Niraj Alex M.D. ANESTHESIOLOGIST: Dr. German. PROCEDURE: Upper endoscopy with J-tube placement. ANESTHESIA: Per Dr. German. INSTRUMENT: Olympus adult flexible upper endoscope. INDICATION: Malfunctioning of G-tube with persistent G-tube leakage. The procedure, risks, benefits, and possible consequences, including hemorrhage, aspiration, perforation and infection, and alternative treatments, were explained to the patient/legal guardian by Dr. Niraj Alex and the patient/legal guardian understood and accepted these risks. DESCRIPTION OF PROCEDURE: After informed consent was obtained and the patient was adequately sedated, Olympus upper endoscope was advanced from the mouth into the second portion of the duodenum and retroflexion was performed in the stomach. This patient's procedure was very challenging. We could not actually properly place the J-tube all the way down into the jejunum. We had to leave the J-tube in the second or third portion of the duodenum and leave after trying for over 40 minutes because this whole of the G-tube site was so big, the area was leaking, and also the duodenum was really curvy, so we could not successfully pass the J tube all the way down after 40 minutes of trying, but already we removed the old G-tube, introduced the #24 J-tube through and passed it to the third portion of the duodenum and that was as far as we could do and then we inflated the balloon, and the procedure was terminated. The patient has also had a shallow gastric ulcer in the region. SUMMARY OF FINDINGS: 1. Gastric ulcer. 2. Placement of the J-tube in the second or third portion of the duodenum. RECOMMENDATIONS: We will start tube feeding later today. Monitor for leakage. If that fails, one option will be to remove the J-tube completely and let the site close while the patient is on TPN and try another G-tube site later, may be in a month or so. The other option would be to get a surgical J-tube placement. We will follow. Niraj Alex M.D. DR: Shaheed JOB#: [id number] CC:
--- NOTE | 2018-05-08 12:44 | Infectious Diseases Prog Note ---
Assessment/Plan Assessment/Plan Abx: IV Vancomycin 05/03 x1 Cefepime 05/03- Flagyl 05/03 Assessment: GT site cellulitis; much improved -wound cx KPC/MDR K. pna, MDR P. 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 u/a p Bcx p Cdiff -afebrile -CXR: No acute cardiopulmonary process. -Bcx NTD ISAURO, resolving Multiple lower extremity decubitus (including stage IV sacral decubitus) w/ likely chronic OM- no signs of active infection -04/17 wound cx L trochanter: ESBL P. stuartti (colonizer) 02/2018 WndC x: MDR Providencia (+ skin colonizer ) Bone scan limited for eval of osteomyelitis. ( due to contracted Ext. ) -s/p 2 weeks of treatment 02/2018 -L hip necrotic/unstagelable decubitus ulcer SP Debridement 11/29 ; Wnd Cx : ACB and Kleb and Strp GrG , MRSA REcent Sepsis 2ry to HCAP, MDR 04/2018, s/p Rx -sp cx S. maltophilia (S bactrim, levaquin), MDR PsA (S Amikacin, Genta) Hx of MSSA bacteremia 11/2017 2ry to infected sacral wound ( SP 4 wks AB rx ) Hx of Pseudomonas urinary tract infection. hx of SCx: MDR-PSA ( colonizer ) Ch transaminitis /cirrhosis Hep C Ab + VDRF Status post trach and percutaneous endoscopic gastrostomy. Dementia Seizure disorder. History of pacemaker placement/AICD -hx of Vtach. Hypertension. COPD. Diabetes. Afib Cardiomyopathy Rheumatic tricuspid valve disease FTT GERD CVA/TIA [facility] resident NKDA FUll code Plan: -Continue IV Daptomycin and Zosyn abx d#/-10 for GT site cellulitis -if worsening WBC, fevers and no other additional source of infection, will add Tigecycline to cover CRE in wound cx (currently thought to be colonizer) -05/06 SP Cefepime and Flagyl #4, IV Vanco #4 -04/29 SPIV Bactrim 5mg/kg q8hr #10 (S.maltophilia PNA), Meropenem #11, IV Amikacin and INH colistin #9 (MDR PsA) -04/18 SP IV Vanco and Zosyn #4 -03/04 SP Meropenem #14 -03/01 SP IV Vanco #7 -02/20 SP vancomycin and Zosyn d#3 -/ SP IV Vancomycin #28 -12/16 SP Meropenem #14 -11/22/17 SP IV Zosyn d# 3 -f/u repeat cultures, u/a, Cdiff -f/u cx -Monitor CBC/BMP, temperatures -wound care per hospital protocol -Sx f/u -trach/peg care -aspiration precautions Thank you for this consultation. Will continue to monitor off abx. Discussed with RN Subjective Allergies: Coded Allergies: No Known Allergies (Unverified , 03/07/17) Subjective afebrile wbc improving repeat CXR neg sp GJ tube today Objective Vital Signs Last 24 Hour Vital Signs Date Time Temp Pulse Resp B/P (MAP) Pulse Ox O2 Delivery O2 Flow Rate FiO2 05/08/18 12:30 92 19 30 05/08/18 12:00 30 05/08/18 12:00 98.4 93 16 99/64 100 Mechanical Ventilator 30 98.4 05/08/18 11:19 96 19 30 05/08/18 09:47 103 135/74 05/08/18 09:10 208.6 88 14 100 05/08/18 09:09 208.6 94 14 100 05/08/18 09:05 100 16 30 05/08/18 08:00 30 05/08/18 08:00 98.4 101 19 122/66 100 Mechanical Ventilator 30 98.4 05/08/18 08:00 102 05/08/18 07:08 101 16 Mechanical Ventilator 40 05/08/18 07:07 97 16 30 05/08/18 07:07 Mechanical Ventilator 30 05/08/18 07:07 Mechanical Ventilator 30 05/08/18 05:55 106 05/08/18 05:02 109 17 30 05/08/18 04:00 30 05/08/18 04:00 98.1 107 18 96/57 100 Mechanical Ventilator 30 98.1 6/22/18 03:18 108 18 30 05/08/18 01:28 107 20 30 05/08/18 01:02 99.3 108 17 98/58 100 Mechanical Ventilator 30 99.3 05/08/18 00:00 110 05/08/18 00:00 30 05/07/18 23:17 120 21 30 05/07/18 23:00 120 18 100 Mechanical Ventilator 05/07/18 23:00 120 22 100 Mechanical Ventilator 30 05/07/18 21:30 103 16 30 05/07/18 21:00 110 104/64 05/07/18 20:00 104 05/07/18 20:00 99.2 110 16 104/64 100 Mechanical Ventilator 30 99.2 05/07/18 18:58 101 17 30 05/07/18 17:29 101 16 30 05/07/18 16:00 30 05/07/18 16:00 100 05/07/18 16:00 97.9 104 20 105/57 100 Mechanical Ventilator 30 97.9 05/07/18 15:41 105 19 100 Mechanical Ventilator 30 05/07/18 15:31 104 11 100 Mechanical Ventilator 30 05/07/18 14:51 104 19 30 Height (Feet): 5 Height (Inches): 6.00 Weight (Pounds): 108 Objective General Appearance: alert, mild distress, thin EENT: PERRL/EOMI, normal ENT inspection Neck: non-tender, normal alignment, supple Cardiovascular: normal peripheral pulses, normal rate, regular rhythm, no gallop/murmur, no JVD Respiratory/Chest: respiratory distress, crackles/rales, rhonchi - bilaterally , expiratory wheezing Abdomen: normal bowel sounds, non tender, soft, no organomegaly, no mass Extremities: normal inspection Neurologic: rn anesthetist 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 normal Skin: normal pigmentation, warm/dry, other - G-tube site cellulitis Laboratory Tests Test 05/08/18 04:54 White Blood Count 13.9 K/UL (4.8-10.8) H Red Blood Count 2.82 M/UL (4.70-6.10) L Hemoglobin 7.7 G/DL (14.2-18.0) L Hematocrit 24.9 % (42.0-52.0) L Mean Corpuscular Volume 88 FL (80-99) Mean Corpuscular Hemoglobin 27.5 PG (27.0-31.0) Mean Corpuscular Hemoglobin Concent 31.1 G/DL (32.0-36.0) L Red Cell Distribution Width 15.1 % (11.6-14.8) H Platelet Count 427 K/UL (150-450) Mean Platelet Volume 5.3 FL (6.5-10.1) L Neutrophils (%) (Auto) % (45.0-75.0) Lymphocytes (%) (Auto) % (20.0-45.0) Monocytes (%) (Auto) % (1.0-10.0) Eosinophils (%) (Auto) % (0.0-3.0) Basophils (%) (Auto) % (0.0-2.0) Differential Total Cells Counted 100 Neutrophils % (Manual) 83 % (45-75) H Lymphocytes % (Manual) 9 % (20-45) L Monocytes % (Manual) 4 % (1-10) Eosinophils % (Manual) 4 % (0-3) H Basophils % (Manual) 0 % (0-2) Band Neutrophils 0 % (0-8) Platelet Estimate Increased H Platelet Morphology Normal Hypochromasia 1+ Anisocytosis 1+ Prothrombin Time 14.7 SEC (9.30-11.50) H Prothromb Time International Ratio 1.4 (0.9-1.1) H Activated Partial Thromboplast Time 41 SEC (23-33) H Sodium Level 138 MMOL/L (136-145) Potassium Level 3.1 MMOL/L (3.5-5.1) L Chloride Level 108 MMOL/L (98-107) H Carbon Dioxide Level 24 MMOL/L (21-32) Anion Gap 6 mmol/L (5-15) Blood Urea Nitrogen 9 mg/dL (7-18) Creatinine 0.7 MG/DL (0.55-1.30) Estimat Glomerular Filtration Rate > 60 mL/min (>60) Glucose Level 112 MG/DL (74-106) H Calcium Level 7.6 MG/DL (8.5-10.1) L Phosphorus Level 2.5 MG/DL (2.5-4.9) Magnesium Level 1.6 MG/DL (1.8-2.4) L Total Bilirubin 0.3 MG/DL (0.2-1.0) Aspartate Amino Transf (AST/SGOT) 13 U/L (15-37) L Alanine Aminotransferase (ALT/SGPT) 8 U/L (12-78) L Alkaline Phosphatase 141 U/L (46-116) H Total Protein 6.3 G/DL (6.4-8.2) L Albumin 1.2 G/DL (3.4-5.0) L Globulin 5.1 g/dL Albumin/Globulin Ratio 0.2 (1.0-2.7) L Current Medications Medications (Trade) Dose Ordered Sig/Tameka Route PRN Reason Start Time Stop Time Status Last Admin Dose Admin Acetaminophen (Tylenol) 650 mg Q4H PRN ORAL fever 05/02/18 22:15 06/01/18 22:14 05/08/18 02:32 Al Hydroxide/Mg Hydroxide (Mylanta II) 30 ml Q6H PRN ORAL dyspepsia 05/02/18 22:15 06/01/18 22:14 Amiodarone HCl (Cordarone) 200 mg DAILY GT 05/03/18 09:00 06/02/18 08:59 05/08/18 09:46 Carvedilol (Coreg) 6.25 mg EVERY 12 HOURS GT 05/03/18 21:00 06/02/18 08:59 05/08/18 09:47 Daptomycin 200 mg/ Sodium Chloride 55 ml @ 100 mls/hr Q24H IV 05/06/18 21:00 05/13/18 20:59 05/07/18 22:21 Dextrose (Dextrose 50%) STAT PRN IV Hypoglycemia 05/06/18 15:15 06/05/18 15:14 Dextrose (Dextrose 50%) STAT PRN IV Hypoglycemia 05/06/18 15:15 06/05/18 15:14 Diphenhydramine HCl (Benadryl) 25 mg Q6H PRN ORAL Itching/Pruritis 05/02/18 22:15 06/01/18 22:14 Levetiracetam (Keppra) 500 mg Q12HR GT 05/03/18 09:00 06/02/18 08:59 05/08/18 09:47 Morphine Sulfate (Morphine Sulfate) 2 mg Q4H PRN IVP Severe Pain (Pain Scale 7-10) 05/03/18 08:15 05/10/18 08:14 05/05/18 11:07 Nitroglycerin (Ntg) 0.4 mg Q5M X 3 DOSES PRN SL Prn Chest Pain 05/02/18 22:15 06/01/18 22:14 Ondansetron HCl (Zofran) 4 mg Q6H PRN IVP Nausea & Vomiting 05/02/18 22:15 06/01/18 22:14 Piperacillin Sod/ Tazobactam Sod 3.375 gm/Dextrose 110 ml @ 27.5 mls/hr Q8HR@0100,0900,1700 IVPB 05/06/18 17:00 05/13/18 16:59 05/08/18 09:46 Polyethylene Glycol (Miralax) 17 gm HSPRN PRN ORAL Constipation 05/02/18 22:15 06/01/18 22:14 Radha Saini M.D. May 08, 2018 12:44
--- NOTE | 2018-05-08 15:17 | General Surgery Progress Note ---
General Surgery-Progress Note Subjective Symptoms: improved Additional Comments leukocytosis 13k today. otherwise stable. no acute events. wounds improving with care. Objective Last 24 Hour Vital Signs Date Time Temp Pulse Resp B/P (MAP) Pulse Ox O2 Delivery O2 Flow Rate FiO2 05/08/18 14:44 103 18 30 05/08/18 12:30 92 19 30 05/08/18 12:00 30 05/08/18 12:00 98.4 93 16 99/64 100 Mechanical Ventilator 30 98.4 05/08/18 11:38 94 05/08/18 11:19 96 19 30 05/08/18 09:47 103 135/74 05/08/18 09:10 208.6 88 14 100 05/08/18 09:09 208.6 94 14 100 05/08/18 09:05 100 16 30 05/08/18 08:00 30 05/08/18 08:00 98.4 101 19 122/66 100 Mechanical Ventilator 30 98.4 05/08/18 08:00 102 05/08/18 07:08 101 16 Mechanical Ventilator 40 05/08/18 07:07 97 16 30 05/08/18 07:07 Mechanical Ventilator 30 05/08/18 07:07 Mechanical Ventilator 30 05/08/18 05:55 106 05/08/18 05:02 109 17 30 05/08/18 04:00 30 05/08/18 04:00 98.1 107 18 96/57 100 Mechanical Ventilator 30 98.1 05/08/18 03:18 108 18 30 05/08/18 01:28 107 20 30 05/08/18 01:02 99.3 108 17 98/58 100 Mechanical Ventilator 30 99.3 05/08/18 00:00 110 05/08/18 00:00 30 05/07/18 23:17 120 21 30 05/07/18 23:00 120 18 100 Mechanical Ventilator 05/07/18 23:00 120 22 100 Mechanical Ventilator 30 05/07/18 21:30 103 16 30 05/07/18 21:00 110 104/64 05/07/18 20:00 104 05/07/18 20:00 99.2 110 16 104/64 100 Mechanical Ventilator 30 99.2 05/07/18 18:58 101 17 30 05/07/18 17:29 101 16 30 05/07/18 16:00 30 05/07/18 16:00 100 05/07/18 16:00 97.9 104 20 105/57 100 Mechanical Ventilator 30 97.9 05/07/18 15:41 105 19 100 Mechanical Ventilator 30 05/07/18 15:31 104 11 100 Mechanical Ventilator 30 I&O Intake and Output 05/07/18 05/08/18 19:00 07:00 Intake Total 1270 ml 1120.0 ml Output Total 250 ml 500 ml Balance 1020 ml 620.0 ml Intake Free Water 50 ml 80 ml IV Total 1045 ml 915.0 ml Tube Feeding 175 ml 125 ml Output Urine Total 250 ml 500 ml # Bowel Movements 4 1 Dressing: saturated Wound: clean Drains: none Cardiovascular: RSR Respiratory: clear Abdomen: soft, flat, non-tender, other - see photo Extremities: other - see photo Laboratory Tests Test 05/08/18 04:54 White Blood Count 13.9 K/UL (4.8-10.8) H Red Blood Count 2.82 M/UL (4.70-6.10) L Hemoglobin 7.7 G/DL (14.2-18.0) L Hematocrit 24.9 % (42.0-52.0) L Mean Corpuscular Volume 88 FL (80-99) Mean Corpuscular Hemoglobin 27.5 PG (27.0-31.0) Mean Corpuscular Hemoglobin Concent 31.1 G/DL (32.0-36.0) L Red Cell Distribution Width 15.1 % (11.6-14.8) H Platelet Count 427 K/UL (150-450) Mean Platelet Volume 5.3 FL (6.5-10.1) L Neutrophils (%) (Auto) % (45.0-75.0) Lymphocytes (%) (Auto) % (20.0-45.0) Monocytes (%) (Auto) % (1.0-10.0) Eosinophils (%) (Auto) % (0.0-3.0) Basophils (%) (Auto) % (0.0-2.0) Differential Total Cells Counted 100 Neutrophils % (Manual) 83 % (45-75) H Lymphocytes % (Manual) 9 % (20-45) L Monocytes % (Manual) 4 % (1-10) Eosinophils % (Manual) 4 % (0-3) H Basophils % (Manual) 0 % (0-2) Band Neutrophils 0 % (0-8) Platelet Estimate Increased H Platelet Morphology Normal Hypochromasia 1+ Anisocytosis 1+ Prothrombin Time 14.7 SEC (9.30-11.50) H Prothromb Time International Ratio 1.4 (0.9-1.1) H Activated Partial Thromboplast Time 41 SEC (23-33) H Sodium Level 138 MMOL/L (136-145) Potassium Level 3.1 MMOL/L (3.5-5.1) L Chloride Level 108 MMOL/L (98-107) H Carbon Dioxide Level 24 MMOL/L (21-32) Anion Gap 6 mmol/L (5-15) Blood Urea Nitrogen 9 mg/dL (7-18) Creatinine 0.7 MG/DL (0.55-1.30) Estimat Glomerular Filtration Rate > 60 mL/min (>60) Glucose Level 112 MG/DL (74-106) H Calcium Level 7.6 MG/DL (8.5-10.1) L Phosphorus Level 2.5 MG/DL (2.5-4.9) Magnesium Level 1.6 MG/DL (1.8-2.4) L Total Bilirubin 0.3 MG/DL (0.2-1.0) Aspartate Amino Transf (AST/SGOT) 13 U/L (15-37) L Alanine Aminotransferase (ALT/SGPT) 8 U/L (12-78) L Alkaline Phosphatase 141 U/L (46-116) H Total Protein 6.3 G/DL (6.4-8.2) L Albumin 1.2 G/DL (3.4-5.0) L Globulin 5.1 g/dL Albumin/Globulin Ratio 0.2 (1.0-2.7) L Plan Problems: (1) Sacral decubitus ulcer, stage IV Assessment & Plan: Surgery: stage IV sacral decubitus ulcer - clean, no signs of active infection, no tracking, down to coccyx, some granulation tissue, no significant fibrinous tissue stage IV left hip decubitus ulcer - clean, no signs of active infection, mild 3 o'clock tracking, some granulation tissue, mild fibrinous tissue stage IV left buttock decubitus ulcer - clean, no signs of active infection, no tracking, some granulation tissue, mild fibrinous tissue stage IV right hip decubitus ulcer - clean, no signs of active infection, no tracking, some granulation tissue, moderate fibrinous tissue stage IV right buttock decubitus ulcer - clean, no signs of active infection, no tracking, some granulation tissue, moderate fibrinous tissue bilateral heel/foot wounds - no signs of active infection. abdominal g tube site wounds - defer to GI. g tube recently replaced. All wounds present upon admission. As for care, for now please was wounds, place dry guaze to wound bed, then cover with foam dressing or ABD 2-3 times per day. need debridement of right hip and buttock wounds to help with healing - pending consent. planned GI GJ tube will eval for two physician consent for debridement thank you for this consultation. will follow with recs. (2) Pressure ulcer, hip, left, unstageable Derek Dong May 08, 2018 15:17
--- NOTE | 2018-05-08 19:10 | Internal Med Progress Note ---
Subjective Date of Service: May 08, 2018 Physician Name Solis,Aaron Attending Physician Roland Box MD Current Medications Medications (Trade) Dose Ordered Sig/Tameka Route PRN Reason Start Time Stop Time Status Last Admin Dose Admin Acetaminophen (Tylenol) 650 mg Q4H PRN ORAL fever 05/02/18 22:15 06/01/18 22:14 05/08/18 02:32 Al Hydroxide/Mg Hydroxide (Mylanta II) 30 ml Q6H PRN ORAL dyspepsia 05/02/18 22:15 06/01/18 22:14 Amiodarone HCl (Cordarone) 200 mg DAILY GT 05/03/18 09:00 06/02/18 08:59 05/08/18 09:46 Carvedilol (Coreg) 6.25 mg EVERY 12 HOURS GT 05/03/18 21:00 06/02/18 08:59 05/08/18 09:47 Daptomycin 200 mg/ Sodium Chloride 55 ml @ 100 mls/hr Q24H IV 05/06/18 21:00 05/13/18 20:59 05/07/18 22:21 Dextrose (Dextrose 50%) STAT PRN IV Hypoglycemia 05/06/18 15:15 06/05/18 15:14 Dextrose (Dextrose 50%) STAT PRN IV Hypoglycemia 05/06/18 15:15 06/05/18 15:14 Diphenhydramine HCl (Benadryl) 25 mg Q6H PRN ORAL Itching/Pruritis 05/02/18 22:15 06/01/18 22:14 Levetiracetam (Keppra) 500 mg Q12HR GT 05/03/18 09:00 06/02/18 08:59 05/08/18 09:47 Morphine Sulfate (Morphine Sulfate) 2 mg Q4H PRN IVP Severe Pain (Pain Scale 7-10) 05/03/18 08:15 05/10/18 08:14 05/05/18 11:07 Nitroglycerin (Ntg) 0.4 mg Q5M X 3 DOSES PRN SL Prn Chest Pain 05/02/18 22:15 06/01/18 22:14 Ondansetron HCl (Zofran) 4 mg Q6H PRN IVP Nausea & Vomiting 05/02/18 22:15 06/01/18 22:14 Piperacillin Sod/ Tazobactam Sod 3.375 gm/Dextrose 110 ml @ 27.5 mls/hr Q8HR@0100,0900,1700 IVPB 05/06/18 17:00 05/13/18 16:59 05/08/18 16:54 Polyethylene Glycol (Miralax) 17 gm HSPRN PRN ORAL Constipation 05/02/18 22:15 06/01/18 22:14 Allergies: Coded Allergies: No Known Allergies (Unverified , 03/07/17) ROS Limited/Unobtainable: Yes Subjective 58 YO M admitted with infected gastrostomy tube site. Cover for Int Med-Dr Box. LIGIA. Vent dependent on trach Objective Last Vital Signs Date Time Temp Pulse Resp B/P (MAP) Pulse Ox O2 Delivery O2 Flow Rate FiO2 05/08/18 17:21 105 17 30 05/08/18 16:46 98.9 116/65 100 Mechanical Ventilator 98.9 Laboratory Tests Test 05/08/18 04:54 White Blood Count 13.9 K/UL (4.8-10.8) H Red Blood Count 2.82 M/UL (4.70-6.10) L Hemoglobin 7.7 G/DL (14.2-18.0) L Hematocrit 24.9 % (42.0-52.0) L Mean Corpuscular Volume 88 FL (80-99) Mean Corpuscular Hemoglobin 27.5 PG (27.0-31.0) Mean Corpuscular Hemoglobin Concent 31.1 G/DL (32.0-36.0) L Red Cell Distribution Width 15.1 % (11.6-14.8) H Platelet Count 427 K/UL (150-450) Mean Platelet Volume 5.3 FL (6.5-10.1) L Neutrophils (%) (Auto) % (45.0-75.0) Lymphocytes (%) (Auto) % (20.0-45.0) Monocytes (%) (Auto) % (1.0-10.0) Eosinophils (%) (Auto) % (0.0-3.0) Basophils (%) (Auto) % (0.0-2.0) Differential Total Cells Counted 100 Neutrophils % (Manual) 83 % (45-75) H Lymphocytes % (Manual) 9 % (20-45) L Monocytes % (Manual) 4 % (1-10) Eosinophils % (Manual) 4 % (0-3) H Basophils % (Manual) 0 % (0-2) Band Neutrophils 0 % (0-8) Platelet Estimate Increased H Platelet Morphology Normal Hypochromasia 1+ Anisocytosis 1+ Prothrombin Time 14.7 SEC (9.30-11.50) H Prothromb Time International Ratio 1.4 (0.9-1.1) H Activated Partial Thromboplast Time 41 SEC (23-33) H Sodium Level 138 MMOL/L (136-145) Potassium Level 3.1 MMOL/L (3.5-5.1) L Chloride Level 108 MMOL/L (98-107) H Carbon Dioxide Level 24 MMOL/L (21-32) Anion Gap 6 mmol/L (5-15) Blood Urea Nitrogen 9 mg/dL (7-18) Creatinine 0.7 MG/DL (0.55-1.30) Estimat Glomerular Filtration Rate > 60 mL/min (>60) Glucose Level 112 MG/DL (74-106) H Calcium Level 7.6 MG/DL (8.5-10.1) L Phosphorus Level 2.5 MG/DL (2.5-4.9) Magnesium Level 1.6 MG/DL (1.8-2.4) L Total Bilirubin 0.3 MG/DL (0.2-1.0) Aspartate Amino Transf (AST/SGOT) 13 U/L (15-37) L Alanine Aminotransferase (ALT/SGPT) 8 U/L (12-78) L Alkaline Phosphatase 141 U/L (46-116) H Total Protein 6.3 G/DL (6.4-8.2) L Albumin 1.2 G/DL (3.4-5.0) L Globulin 5.1 g/dL Albumin/Globulin Ratio 0.2 (1.0-2.7) L Intake and Output 05/07/18 05/08/18 19:00 07:00 Intake Total 1270 ml 1120.0 ml Output Total 250 ml 500 ml Balance 1020 ml 620.0 ml Intake Free Water 50 ml 80 ml IV Total 1045 ml 915.0 ml Tube Feeding 175 ml 125 ml Output Urine Total 250 ml 500 ml # Bowel Movements 4 1 Objective General Appearance: alert, mild distress, thin EENT: PERRL/EOMI, normal ENT inspection Neck: non-tender, normal alignment, supple Cardiovascular: normal peripheral pulses, normal rate, regular rhythm, no gallop/murmur, no JVD Respiratory/Chest: Trach; mech vent; respiratory distress, crackles/rales, rhonchi - bilaterally, expiratory wheezing Abdomen: normal bowel sounds, non tender, soft, no organomegaly, no mass Extremities: normal inspection 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 pneumo, rovidencia, and enterococcus. Continue daptomycin and zosyn per ID (5) Sacral decubitus ulcer, stage IV (6) Tracheostomy care (7) Chronic respiratory failure Assessment & Plan: Vent dep. See pulmonary note. (8) Seizure disorder Assessment & Plan: Continue keppra (9) Atrial fibrillation Assessment & Plan: Continue amiodarone per cardiology (10) CHF (congestive heart failure) Assessment & Plan: See cardiology note. (11) Diabetes mellitus type II, uncontrolled (12) Cerebral vascular disease (13) Feeding by G-tube Aaron Solis MD May 08, 2018 19:10
[2018-05-08] MEDS: NS IV SCH (21:30)
[2018-05-08] MEDS: DAPTOMYCIN IV SCH (21:30)
[2018-05-09] VITALS (8 sets, daily range): BP systolic 101–130; BP diastolic 58–69
[2018-05-09] MEDS: Piperacillin/Tazobactam 3.375 GM in D5W 110 ML IVPB SCH ×3 (01:10→18:37)
[2018-05-09] MEDS: Morphine Sulfate 2mg/ml Inj IVP PRN ×2 (01:11→12:01)
[2018-05-09 04:28] LABS: ANION GAP 7 mmol/L (5-15); BLOOD UREA NITROGEN 11 mg/dL (7-18); CALCIUM 7.6 MG/DL (8.5-10.1); CARBON DIOXIDE 23 MMOL/L (21-32); CHLORIDE 110 MMOL/L (98-107); CREATININE 0.7 MG/DL (0.55-1.30); HEMATOCRIT 24.5 % (42.0-52.0); HEMOGLOBIN 7.5 G/DL (14.2-18.0); MEAN CORPUSCULAR VOLUME 88 FL (80-99); PLATELET COUNT 449 K/UL (150-450); POTASSIUM 2.9 MMOL/L (3.5-5.1); RED BLOOD COUNT 2.78 M/UL (4.70-6.10); RED CELL DISTRIBUTION WIDTH 15.4 % (11.6-14.8); SODIUM 140 MMOL/L (136-145)
--- NOTE | 2018-05-09 05:15 | Consultation ---
DATE OF CONSULTATION: 05/08/2018 NOTE: POOR AUDIO HEMATOLOGY/ONCOLOGY CONSULTATION CONSULTING PHYSICIAN: Venancio James M.D. REQUESTING PHYSICIANS: 1. Aaron Solis M.D. 2. Roland Box M.D. REASON FOR CONSULTATION: Evaluation of ongoing progressive anemia with a hemoglobin of 7.7. IDENTIFYING DATA: Dear Dr. Solis and Dr. Box, The patient is a pleasant 58-year-old male with past medical history significant for ventilator-dependent respiratory failure, status post tracheostomy, status post G-tube. I saw the patient back in February of this year. He presents to the hospital with . He has 30% history of transaminitis. At this time, he presents to the [facility] with G-tube cellulitis, presented from [facility]. GI doctor, Dr. Box and Dr. Solis, history of MSSA bacteremia in November 2017, and chronic sacral ulceration, status post antibiotics for 4 weeks, history of ventricular tachycardia, status post AICD, status post G-tube, GERD, encephalopathy, decubitus ulceration, last admitted for pneumonia in the beginning of April meropenem, currently is on daptomycin. The Hematology Service was consulted given ongoing anemia and for further evaluation as needed. PAST MEDICAL HISTORY: Rheumatic tricuspid disease, MSSA bacteremia, chronic sacral wounds, status post 4 weeks of antibiotics, Pseudomonas urinary tract infection, ventricular tachycardia, , pneumonia, COPD, and dysphagia, status post G-tube. PAST SURGICAL HISTORY: . ALLERGIES: No known drug allergies. MEDICATIONS: Daptomycin, Zosyn, Coreg, amiodarone, Keflex, and morphine. REVIEW OF SYSTEMS: CONSTITUTIONAL: No fevers, chills, or night sweats. SKIN: No rashes, bumps, or itching. HEENT: No headache, hearing or visual changes. BREASTS: No lumps, pain, or discharge. PULMONARY: No cough, sputum, or shortness of breath. GASTROINTESTINAL: No nausea, vomiting, or diarrhea. GENITOURINARY: No dysuria, frequency, or urgency. MUSCULOSKELETAL: No joint swelling, muscle pain, or trauma. PHYSICAL EXAMINATION: VITAL SIGNS: . PULMONARY: Decreased breath sounds trach. ABDOMEN: dysphagia, status post G-tube. ASSESSMENT AND RECOMMENDATIONS: 1. Anemia, progressive. Anemia workup and labs have been reviewed. 2. History of chronic disease. 3. Leukocytosis secondary to underlying infection. He has been seen and evaluated with antibiotics by Infectious Disease and at this time, continue antibiotics per the recommendations. Currently, WBC is down trending. 4. Thrombocytosis, likely secondary to reactive process. 5. Eosinophilia, currently mild. Closely monitor for improvement. 6. Coagulopathy with an INR of 1.4, potentially secondary to decreased p.o. intake. 7. Chronic medical conditions. Decrease vitamin K uptake. 8. Severe contraction deformity. 9. Bilateral . 10. Gastrostomy tube history. 11. Current respiratory failure, status post tracheostomy. I appreciate your consultation, Dr. Solis. Venancio James M.D. DR: SHANKAR JOB#: [id number] CC:
[2018-05-09] MEDS ORDERED: NS IV SCH (09:00)
[2018-05-09] MEDS: Carvedilol 6.25mg Tab GT SCH ×2 (09:00→20:37)
[2018-05-09] MEDS ORDERED: POTASSIUM PHOSPHATE IV SCH (09:00)
[2018-05-09] MEDS: levETIRAcetam 500mg/5ml Liquid GT SCH ×2 (09:21→20:37)
[2018-05-09] MEDS: Amiodarone 200mg tab GT SCH (09:21)
--- NOTE | 2018-05-09 09:47 | General Progress Note ---
Assessment/Plan Problem List: (1) Transaminitis ICD Codes: R74.0 - Nonspecific elevation of levels of transaminase and lactic acid dehydrogenase [LDH] SNOMED: 627080586 (2) Diabetes mellitus type II, uncontrolled ICD Codes: E11.65 - Type 2 diabetes mellitus with hyperglycemia SNOMED: 55759911, 029308828 (3) HTN (hypertension) ICD Codes: I10 - Essential (primary) hypertension SNOMED: 95949092 (4) Seizure disorder ICD Codes: G40.909 - Epilepsy, unspecified, not intractable, without status epilepticus SNOMED: 432185468 (5) Atrial fibrillation ICD Codes: I48.91 - Unspecified atrial fibrillation SNOMED: 87022829 (6) G-tube site cellulitis ICD Codes: K94.22 - Gastrostomy infection; L03.319 - Cellulitis of trunk, unspecified SNOMED: 368710128, 661906265 Assessment/Plan JTF tolerated prn blood transfusion to keep HGB above 7 fu Subjective ROS Limited/Unobtainable: No Allergies: Coded Allergies: No Known Allergies (Unverified , 03/07/17) Objective Last 24 Hour Vital Signs Date Time Temp Pulse Resp B/P (MAP) Pulse Ox O2 Delivery O2 Flow Rate FiO2 05/09/18 09:00 109 113/64 05/09/18 08:36 106 20 30 05/09/18 08:00 109 05/09/18 08:00 99.5 106 22 113/64 100 Mechanical Ventilator 30 99.5 05/09/18 08:00 30 05/09/18 06:44 108 16 30 05/09/18 05:09 104 24 30 05/09/18 04:00 109 05/09/18 04:00 30 05/09/18 04:00 98.3 98 24 124/58 100 Mechanical Ventilator 30 98.3 05/09/18 03:19 108 19 30 05/09/18 01:18 101 16 30 05/09/18 00:00 98.0 100 22 130/63 98 Mechanical Ventilator 30 98.0 05/09/18 00:00 30 05/08/18 23:39 98 05/08/18 22:56 94 17 30 05/08/18 21:30 105 136/71 05/08/18 20:51 104 18 30 05/08/18 20:00 30 05/08/18 20:00 98.8 105 20 136/71 100 Mechanical Ventilator 30 98.8 05/08/18 20:00 99 05/08/18 19:21 100 19 30 05/08/18 17:21 105 17 30 05/08/18 16:46 98.9 103 18 116/65 100 Mechanical Ventilator 30 98.9 05/08/18 16:00 30 05/08/18 16:00 105 05/08/18 14:44 103 18 30 05/08/18 12:30 92 19 30 05/08/18 12:00 30 05/08/18 12:00 98.4 93 16 99/64 100 Mechanical Ventilator 30 98.4 05/08/18 11:38 94 05/08/18 11:19 96 19 30 05/08/18 09:47 103 135/74 Intake and Output 05/08/18 05/09/18 19:00 07:00 Intake Total 968.647 ml 715.0 ml Output Total 350 ml 300 ml Balance 618.647 ml 415.0 ml Intake Free Water 150 ml 100 ml IV Total 528.647 ml 220.0 ml Tube Feeding 240 ml 395 ml Other 50 ml Output Urine Total 350 ml 300 ml # Bowel Movements 2 1 Laboratory Tests 05/09/18 03:40: White Blood Count 13.0H, Red Blood Count 2.78L, Hemoglobin 7.5L, Hematocrit 24.5L, Mean Corpuscular Volume 88, Mean Corpuscular Hemoglobin 27.1, Mean Corpuscular Hemoglobin Concent 30.7L, Red Cell Distribution Width 15.4H, Platelet Count 449, Mean Platelet Volume 5.1L, Neutrophils (%) (Auto) , Lymphocytes (%) (Auto) , Monocytes (%) (Auto) , Eosinophils (%) (Auto) , Basophils (%) (Auto) , Differential Total Cells Counted 100, Neutrophils % ( Manual) 74, Lymphocytes % (Manual) 16L, Monocytes % (Manual) 6, Eosinophils % ( Manual) 4H, Basophils % (Manual) 0, Band Neutrophils 0, Platelet Estimate Adequate, Platelet Morphology Normal, Hypochromasia 1+, Anisocytosis 1+, Blister Cells 2+, Schistocytes 1+, Sodium Level 140, Potassium Level 2.9L, Chloride Level 110H, Carbon Dioxide Level 23, Anion Gap 7, Blood Urea Nitrogen 11, Creatinine 0.7, Estimat Glomerular Filtration Rate > 60, Glucose Level 133H , Calcium Level 7.6L Height (Feet): 5 Height (Inches): 6.00 Weight (Pounds): 108 General Appearance: no apparent distress EENT: normal ENT inspection Neck: supple Cardiovascular: normal rate Respiratory/Chest: decreased breath sounds Abdomen: non tender, soft Extremities: non-tender Niraj Alex MD May 09, 2018 09:47
[2018-05-09] MEDS ORDERED: D5 1/2NS 1000ml IV ONE ×2 (10:50→10:57)
[2018-05-09] MEDS ORDERED: NS 275ml ONE ×3 (10:50→16:34)
[2018-05-09] MEDS ORDERED: NS Irrig 1000ml ONE (10:50)
[2018-05-09] MEDS ORDERED: 1/2 NS 1000ml IV ONE (10:57)
[2018-05-09] MEDS ORDERED: Tubing IV Secondary IV ONE (10:57)
--- NOTE | 2018-05-09 12:29 | Pulmonolgy Critical Care Note ---
Critical Care - Asmt/Plan Problems: (1) G-tube site cellulitis (2) Gastrostomy tube skin breakdown (3) Ventilator dependence (4) Sacral decubitus ulcer, stage IV (5) AICD (automatic cardioverter/defibrillator) present (6) EF of 30 (7) Pressure ulcer, hip, left, unstageable Respiratory: monitor respiratory rate, adjust FIO2, CXR Cardiac: continue to monitor HR/BP Renal: F/U I&O, keep IV fluid Infectious Disease: check cultures Gastrointestinal: continue feedings/current rate Endocrine: monitor blood sugar, check TSH Hematologic: transfuse if hgb<8.5 Neurologic: PRN Ativan, keep patient comfortable Prophylaxis: Protonix Notes Reviewed: termite helper, cardio Discussed with: nurses, consultants, case finishing machine adjusterhydro generation manager - Objective Last 24 Hour Vital Signs Date Time Temp Pulse Resp B/P (MAP) Pulse Ox O2 Delivery O2 Flow Rate FiO2 05/09/18 12:01 99.2 05/09/18 12:00 30 05/09/18 11:54 99.2 105 20 118/66 100 Mechanical Ventilator 30 99.2 05/09/18 10:39 106 18 30 05/09/18 09:00 109 113/64 05/09/18 08:36 106 20 30 05/09/18 08:00 109 05/09/18 08:00 99.5 106 22 113/64 100 Mechanical Ventilator 30 99.5 05/09/18 08:00 30 05/09/18 06:44 108 16 30 05/09/18 05:09 104 24 30 05/09/18 04:00 109 05/09/18 04:00 30 05/09/18 04:00 98.3 98 24 124/58 100 Mechanical Ventilator 30 98.3 05/09/18 03:19 108 19 30 05/09/18 01:18 101 16 30 05/09/18 00:00 98.0 100 22 130/63 98 Mechanical Ventilator 30 98.0 05/09/18 00:00 30 05/08/18 23:39 98 05/08/18 22:56 94 17 30 05/08/18 21:30 105 136/71 05/08/18 20:51 104 18 30 05/08/18 20:00 30 05/08/18 20:00 98.8 105 20 136/71 100 Mechanical Ventilator 30 98.8 05/08/18 20:00 99 05/08/18 19:21 100 19 30 05/08/18 17:21 105 17 30 05/08/18 16:46 98.9 103 18 116/65 100 Mechanical Ventilator 30 98.9 05/08/18 16:00 30 05/08/18 16:00 105 05/08/18 14:44 103 18 30 05/08/18 12:30 92 19 30 Status: awake Condition: critical Neck: full ROM Lungs: clear Heart: HR/BP stable Abdomen: non-tender, feeding tube Extremities: edema Micro: Microbiology Date/Time Source Procedure Growth Status 05/07/18 13:30 Blood Blood Culture - Preliminary NO GROWTH AFTER 24 HOURS Resulted 05/07/18 13:15 Blood Blood Culture - Preliminary NO GROWTH AFTER 24 HOURS Resulted 05/07/18 18:30 Stool Clostridium difficile Toxin Assay - Final Complete Critical Care - Subjective ROS Limited/Unobtainable: Yes Interval Events: pt needs blood transfusion. there is nobody available to sign the consent. Sister is not answering the phone calls. Condition: critical EKG Rhythm: Sinus Rhythm FI02: 30 Vent Support Breath Rate: 14 Vent Support Mode: AC Vent Tidal Volume: 600 Sputum Amount: Small PEEP: 5.0 PIP: 32 Tube Feeding Amount: 35 I&O: Intake and Output 05/08/18 05/09/18 19:00 07:00 Intake Total 968.647 ml 715.0 ml Output Total 350 ml 300 ml Balance 618.647 ml 415.0 ml Intake Free Water 150 ml 100 ml IV Total 528.647 ml 220.0 ml Tube Feeding 240 ml 395 ml Other 50 ml Output Urine Total 350 ml 300 ml # Bowel Movements 2 1 Labs: Laboratory Tests Test 05/09/18 03:40 White Blood Count 13.0 K/UL (4.8-10.8) H Red Blood Count 2.78 M/UL (4.70-6.10) L Hemoglobin 7.5 G/DL (14.2-18.0) L Hematocrit 24.5 % (42.0-52.0) L Mean Corpuscular Volume 88 FL (80-99) Mean Corpuscular Hemoglobin 27.1 PG (27.0-31.0) Mean Corpuscular Hemoglobin Concent 30.7 G/DL (32.0-36.0) L Red Cell Distribution Width 15.4 % (11.6-14.8) H Platelet Count 449 K/UL (150-450) Mean Platelet Volume 5.1 FL (6.5-10.1) L Neutrophils (%) (Auto) % (45.0-75.0) Lymphocytes (%) (Auto) % (20.0-45.0) Monocytes (%) (Auto) % (1.0-10.0) Eosinophils (%) (Auto) % (0.0-3.0) Basophils (%) (Auto) % (0.0-2.0) Differential Total Cells Counted 100 Neutrophils % (Manual) 74 % (45-75) Lymphocytes % (Manual) 16 % (20-45) L Monocytes % (Manual) 6 % (1-10) Eosinophils % (Manual) 4 % (0-3) H Basophils % (Manual) 0 % (0-2) Band Neutrophils 0 % (0-8) Platelet Estimate Adequate Platelet Morphology Normal Hypochromasia 1+ Anisocytosis 1+ Blister Cells 2+ Schistocytes 1+ Sodium Level 140 MMOL/L (136-145) Potassium Level 2.9 MMOL/L (3.5-5.1) L Chloride Level 110 MMOL/L (98-107) H Carbon Dioxide Level 23 MMOL/L (21-32) Anion Gap 7 mmol/L (5-15) Blood Urea Nitrogen 11 mg/dL (7-18) Creatinine 0.7 MG/DL (0.55-1.30) Estimat Glomerular Filtration Rate > 60 mL/min (>60) Glucose Level 133 MG/DL (74-106) H Calcium Level 7.6 MG/DL (8.5-10.1) Shani Farmer MD May 09, 2018 12:29
--- NOTE | 2018-05-09 15:48 | Infectious Diseases Prog Note ---
Assessment/Plan Assessment/Plan Assessment: GT site cellulitis; much improved -wound cx KPC/MDR K. pna, MDR P. 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 u/a p Bcx p Cdiff -afebrile -CXR: No acute cardiopulmonary process. -Bcx NTD ISAURO, resolving Multiple lower extremity decubitus (including stage IV sacral decubitus) w/ likely chronic OM- no signs of active infection -04/17 wound cx L trochanter: ESBL P. stuartti (colonizer) 02/2018 WndC x: MDR Providencia (+ skin colonizer ) Bone scan limited for eval of osteomyelitis. ( due to contracted Ext. ) -s/p 2 weeks of treatment 02/2018 -L hip necrotic/unstagelable decubitus ulcer SP Debridement 11/29 ; Wnd Cx : ACB and Kleb and Strp GrG , MRSA REcent Sepsis 2ry to HCAP, MDR 04/2018, s/p Rx -sp cx S. maltophilia (S bactrim, levaquin), MDR PsA (S Amikacin, Genta) Hx of MSSA bacteremia 11/2017 2ry to infected sacral wound ( SP 4 wks AB rx ) Hx of Pseudomonas urinary tract infection. hx of SCx: MDR-PSA ( colonizer ) Ch transaminitis /cirrhosis Hep C Ab + VDRF Status post trach and percutaneous endoscopic gastrostomy. Dementia Seizure disorder. History of pacemaker placement/AICD -hx of Vtach. Hypertension. COPD. Diabetes. Afib Cardiomyopathy Rheumatic tricuspid valve disease FTT GERD CVA/TIA [facility] resident NKDA FUll code Plan: -Continue IV Daptomycin and Zosyn abx d# 7 /-10 for GT site cellulitis -if worsening WBC, fevers and no other additional source of infection, will add Tigecycline to cover CRE in wound cx (currently thought to be colonizer) -05/06 SP Cefepime and Flagyl #4, IV Vanco #4 -04/29 SPIV Bactrim 5mg/kg q8hr #10 (S.maltophilia PNA), Meropenem #11, IV Amikacin and INH colistin #9 (MDR PsA) -/ SP IV Vanco and Zosyn #4 -03/04 SP Meropenem #14 -03/01 SP IV Vanco #7 -02/20 SP vancomycin and Zosyn d#3 -/7 SP IV Vancomycin #28 -12/16 SP Meropenem #14 -11/22/17 SP IV Zosyn d# 3 -f/u repeat cultures, u/a, Cdiff -f/u cx -Monitor CBC/BMP, temperatures -wound care per hospital protocol -Sx f/u -trach/peg care -aspiration precautions Subjective Allergies: Coded Allergies: No Known Allergies (Unverified , 03/07/17) Subjective non verbal Objective Vital Signs Last 24 Hour Vital Signs Date Time Temp Pulse Resp B/P (MAP) Pulse Ox O2 Delivery O2 Flow Rate FiO2 05/09/18 12:41 104 16 30 05/09/18 12:31 99.2 05/09/18 12:01 99.2 05/09/18 12:00 103 05/09/18 12:00 30 05/09/18 11:54 99.2 105 20 118/66 100 Mechanical Ventilator 30 99.2 05/09/18 10:39 106 18 30 05/09/18 09:00 109 113/64 05/09/18 08:36 106 20 30 05/09/18 08:00 109 05/09/18 08:00 99.5 106 22 113/64 100 Mechanical Ventilator 30 99.5 05/09/18 08:00 30 05/09/18 06:44 108 16 30 05/09/18 05:09 104 24 30 05/09/18 04:00 109 05/09/18 04:00 30 05/09/18 04:00 98.3 98 24 124/58 100 Mechanical Ventilator 30 98.3 05/09/18 03:19 108 19 30 05/09/18 01:18 101 16 30 05/09/18 00:00 98.0 100 22 130/63 98 Mechanical Ventilator 30 98.0 05/09/18 00:00 30 05/08/18 23:39 98 05/08/18 22:56 94 17 30 05/08/18 21:30 105 136/71 05/08/18 20:51 104 18 30 05/08/18 20:00 30 05/08/18 20:00 98.8 105 20 136/71 100 Mechanical Ventilator 30 98.8 05/08/18 20:00 99 05/08/18 19:21 100 19 30 05/08/18 17:21 105 17 30 05/08/18 16:46 98.9 103 18 116/65 100 Mechanical Ventilator 30 98.9 05/08/18 16:00 30 05/08/18 16:00 105 Height (Feet): 5 Height (Inches): 6.00 Weight (Pounds): 108 HEENT: anicteric Respiratory/Chest: no respiratory distress Cardiovascular: regularly irregular Abdomen: no organomegaly Microbiology Date/Time Source Procedure Growth Status 05/07/18 13:30 Blood Blood Culture - Preliminary NO GROWTH AFTER 24 HOURS Resulted 05/07/18 13:15 Blood Blood Culture - Preliminary NO GROWTH AFTER 24 HOURS Resulted 05/07/18 18:30 Stool Clostridium difficile Toxin Assay - Final Complete Laboratory Tests Test 05/09/18 03:40 White Blood Count 13.0 K/UL (4.8-10.8) H Red Blood Count 2.78 M/UL (4.70-6.10) L Hemoglobin 7.5 G/DL (14.2-18.0) L Hematocrit 24.5 % (42.0-52.0) L Mean Corpuscular Volume 88 FL (80-99) Mean Corpuscular Hemoglobin 27.1 PG (27.0-31.0) Mean Corpuscular Hemoglobin Concent 30.7 G/DL (32.0-36.0) L Red Cell Distribution Width 15.4 % (11.6-14.8) H Platelet Count 449 K/UL (150-450) Mean Platelet Volume 5.1 FL (6.5-10.1) L Neutrophils (%) (Auto) % (45.0-75.0) Lymphocytes (%) (Auto) % (20.0-45.0) Monocytes (%) (Auto) % (1.0-10.0) Eosinophils (%) (Auto) % (0.0-3.0) Basophils (%) (Auto) % (0.0-2.0) Differential Total Cells Counted 100 Neutrophils % (Manual) 74 % (45-75) Lymphocytes % (Manual) 16 % (20-45) L Monocytes % (Manual) 6 % (1-10) Eosinophils % (Manual) 4 % (0-3) H Basophils % (Manual) 0 % (0-2) Band Neutrophils 0 % (0-8) Platelet Estimate Adequate Platelet Morphology Normal Hypochromasia 1+ Anisocytosis 1+ Blister Cells 2+ Schistocytes 1+ Sodium Level 140 MMOL/L (136-145) Potassium Level 2.9 MMOL/L (3.5-5.1) L Chloride Level 110 MMOL/L (98-107) H Carbon Dioxide Level 23 MMOL/L (21-32) Anion Gap 7 mmol/L (5-15) Blood Urea Nitrogen 11 mg/dL (7-18) Creatinine 0.7 MG/DL (0.55-1.30) Estimat Glomerular Filtration Rate > 60 mL/min (>60) Glucose Level 133 MG/DL (74-106) H Calcium Level 7.6 MG/DL (8.5-10.1) L Current Medications Medications (Trade) Dose Ordered Sig/Tameka Route PRN Reason Start Time Stop Time Status Last Admin Dose Admin Acetaminophen (Tylenol) 650 mg Q4H PRN ORAL fever 05/02/18 22:15 06/01/18 22:14 05/08/18 02:32 Al Hydroxide/Mg Hydroxide (Mylanta II) 30 ml Q6H PRN ORAL dyspepsia 05/02/18 22:15 06/01/18 22:14 Amiodarone HCl (Cordarone) 200 mg DAILY GT 05/03/18 09:00 06/02/18 08:59 05/09/18 09:21 Carvedilol (Coreg) 6.25 mg EVERY 12 HOURS GT 05/03/18 21:00 06/02/18 08:59 05/08/18 21:30 Daptomycin 200 mg/ Sodium Chloride 55 ml @ 100 mls/hr Q24H IV 05/06/18 21:00 05/13/18 20:59 05/08/18 21:30 Dextrose (Dextrose 50%) STAT PRN IV Hypoglycemia 05/06/18 15:15 06/05/18 15:14 Dextrose (Dextrose 50%) STAT PRN IV Hypoglycemia 05/06/18 15:15 06/05/18 15:14 Diphenhydramine HCl (Benadryl) 25 mg Q6H PRN ORAL Itching/Pruritis 05/02/18 22:15 06/01/18 22:14 Levetiracetam (Keppra) 500 mg Q12HR GT 05/03/18 09:00 06/02/18 08:59 05/09/18 09:21 Morphine Sulfate (Morphine Sulfate) 2 mg Q4H PRN IVP Severe Pain (Pain Scale 7-10) 05/03/18 08:15 05/10/18 08:14 05/09/18 12:01 Nitroglycerin (Ntg) 0.4 mg Q5M X 3 DOSES PRN SL Prn Chest Pain 05/02/18 22:15 06/01/18 22:14 Ondansetron HCl (Zofran) 4 mg Q6H PRN IVP Nausea & Vomiting 05/02/18 22:15 06/01/18 22:14 Piperacillin Sod/ Tazobactam Sod 3.375 gm/Dextrose 110 ml @ 27.5 mls/hr Q8HR@0100,0900,1700 IVPB 05/06/18 17:00 05/13/18 16:59 05/09/18 10:36 Polyethylene Glycol (Miralax) 17 gm HSPRN PRN ORAL Constipation 05/02/18 22:15 06/01/18 22:14 Jake Naqvi MD May 09, 2018 15:48
[2018-05-09] MEDS ORDERED: Tubing Blood Filter IV ONE (16:34)
--- NOTE | 2018-05-09 17:04 | Internal Med Progress Note ---
Subjective Date of Service: May 09, 2018 Physician Name Solis,Aaron Attending Physician Roland Box MD Current Medications Medications (Trade) Dose Ordered Sig/Tameka Route PRN Reason Start Time Stop Time Status Last Admin Dose Admin Acetaminophen (Tylenol) 650 mg Q4H PRN ORAL fever 05/02/18 22:15 06/01/18 22:14 05/09/18 16:08 Al Hydroxide/Mg Hydroxide (Mylanta II) 30 ml Q6H PRN ORAL dyspepsia 05/02/18 22:15 06/01/18 22:14 Amiodarone HCl (Cordarone) 200 mg DAILY GT 05/03/18 09:00 06/02/18 08:59 05/09/18 09:21 Carvedilol (Coreg) 6.25 mg EVERY 12 HOURS GT 05/03/18 21:00 06/02/18 08:59 05/08/18 21:30 Daptomycin 200 mg/ Sodium Chloride 55 ml @ 100 mls/hr Q24H IV 05/06/18 21:00 05/13/18 20:59 05/08/18 21:30 Dextrose (Dextrose 50%) STAT PRN IV Hypoglycemia 05/06/18 15:15 06/05/18 15:14 Dextrose (Dextrose 50%) STAT PRN IV Hypoglycemia 05/06/18 15:15 06/05/18 15:14 Diphenhydramine HCl (Benadryl) 25 mg Q6H PRN ORAL Itching/Pruritis 05/02/18 22:15 06/01/18 22:14 Levetiracetam (Keppra) 500 mg Q12HR GT 05/03/18 09:00 06/02/18 08:59 05/09/18 09:21 Morphine Sulfate (Morphine Sulfate) 2 mg Q4H PRN IVP Severe Pain (Pain Scale 7-10) 05/03/18 08:15 05/10/18 08:14 05/09/18 12:01 Nitroglycerin (Ntg) 0.4 mg Q5M X 3 DOSES PRN SL Prn Chest Pain 05/02/18 22:15 06/01/18 22:14 Ondansetron HCl (Zofran) 4 mg Q6H PRN IVP Nausea & Vomiting 05/02/18 22:15 06/01/18 22:14 Piperacillin Sod/ Tazobactam Sod 3.375 gm/Dextrose 110 ml @ 27.5 mls/hr Q8HR@0100,0900,1700 IVPB 05/06/18 17:00 05/13/18 16:59 05/09/18 10:36 Polyethylene Glycol (Miralax) 17 gm HSPRN PRN ORAL Constipation 05/02/18 22:15 06/01/18 22:14 Allergies: Coded Allergies: No Known Allergies (Unverified , 03/07/17) ROS Limited/Unobtainable: Yes Subjective 58 YO M admitted with infected gastrostomy tube site. Cover for Int Med-Dr Box. LIGIA. Vent dependent on trach Objective Last Vital Signs Date Time Temp Pulse Resp B/P (MAP) Pulse Ox O2 Delivery O2 Flow Rate FiO2 05/09/18 16:45 99.4 103 20 107/67 100 Mechanical Ventilator 30 99.4 Laboratory Tests Test 05/09/18 03:40 White Blood Count 13.0 K/UL (4.8-10.8) H Red Blood Count 2.78 M/UL (4.70-6.10) L Hemoglobin 7.5 G/DL (14.2-18.0) L Hematocrit 24.5 % (42.0-52.0) L Mean Corpuscular Volume 88 FL (80-99) Mean Corpuscular Hemoglobin 27.1 PG (27.0-31.0) Mean Corpuscular Hemoglobin Concent 30.7 G/DL (32.0-36.0) L Red Cell Distribution Width 15.4 % (11.6-14.8) H Platelet Count 449 K/UL (150-450) Mean Platelet Volume 5.1 FL (6.5-10.1) L Neutrophils (%) (Auto) % (45.0-75.0) Lymphocytes (%) (Auto) % (20.0-45.0) Monocytes (%) (Auto) % (1.0-10.0) Eosinophils (%) (Auto) % (0.0-3.0) Basophils (%) (Auto) % (0.0-2.0) Differential Total Cells Counted 100 Neutrophils % (Manual) 74 % (45-75) Lymphocytes % (Manual) 16 % (20-45) L Monocytes % (Manual) 6 % (1-10) Eosinophils % (Manual) 4 % (0-3) H Basophils % (Manual) 0 % (0-2) Band Neutrophils 0 % (0-8) Platelet Estimate Adequate Platelet Morphology Normal Hypochromasia 1+ Anisocytosis 1+ Blister Cells 2+ Schistocytes 1+ Sodium Level 140 MMOL/L (136-145) Potassium Level 2.9 MMOL/L (3.5-5.1) L Chloride Level 110 MMOL/L (98-107) H Carbon Dioxide Level 23 MMOL/L (21-32) Anion Gap 7 mmol/L (5-15) Blood Urea Nitrogen 11 mg/dL (7-18) Creatinine 0.7 MG/DL (0.55-1.30) Estimat Glomerular Filtration Rate > 60 mL/min (>60) Glucose Level 133 MG/DL (74-106) H Calcium Level 7.6 MG/DL (8.5-10.1) L Microbiology Date/Time Source Procedure Growth Status 05/07/18 13:30 Blood Blood Culture - Preliminary NO GROWTH AFTER 24 HOURS Resulted 05/07/18 13:15 Blood Blood Culture - Preliminary NO GROWTH AFTER 24 HOURS Resulted 05/07/18 18:30 Stool Clostridium difficile Toxin Assay - Final Complete Intake and Output 05/08/18 05/09/18 19:00 07:00 Intake Total 968.647 ml 715.0 ml Output Total 350 ml 300 ml Balance 618.647 ml 415.0 ml Intake Free Water 150 ml 100 ml IV Total 528.647 ml 220.0 ml Tube Feeding 240 ml 395 ml Other 50 ml Output Urine Total 350 ml 300 ml # Bowel Movements 2 1 Objective General Appearance: alert, mild distress, thin EENT: PERRL/EOMI, normal ENT inspection Neck: non-tender, normal alignment, supple Cardiovascular: normal peripheral pulses, normal rate, regular rhythm, no gallop/murmur, no JVD Respiratory/Chest: Trach; mech vent; respiratory distress, crackles/rales, rhonchi - bilaterally, expiratory wheezing Abdomen: normal bowel sounds, non tender, soft, no organomegaly, no mass Extremities: normal inspection Neurologic: medicare interviewer 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 normal Skin: normal pigmentation, warm/dry, other - G-tube site cellulitis Assessment/Plan Problem List: (1) HTN (hypertension) Assessment & Plan: Cont coreg (2) Anoxic brain injury (3) Gastrostomy tube skin breakdown (4) G-tube site cellulitis Assessment & Plan: Kleb. pneumo, rovidencia, and enterococcus. Continue daptomycin and zosyn per ID (5) Sacral decubitus ulcer, stage IV (6) Tracheostomy care (7) Chronic respiratory failure Assessment & Plan: Vent dep. See pulmonary note. (8) Seizure disorder Assessment & Plan: Continue keppra (9) Atrial fibrillation Assessment & Plan: Continue amiodarone per cardiology (10) CHF (congestive heart failure) Assessment & Plan: See cardiology note. (11) Diabetes mellitus type II, uncontrolled (12) Cerebral vascular disease (13) Feeding by G-tube (14) Hypokalemia Assessment & Plan: replace potassium (15) Anemia Assessment & Plan: Transfuse 1 unit PRBC today Status: not improved Aaron Solis MD May 09, 2018 17:04
[2018-05-09] MEDS: DAPTOMYCIN IV SCH (21:25)
[2018-05-09] MEDS: NS IV SCH (21:25)
--- NOTE | 2018-05-09 21:37 | General Progress Note ---
Assessment/Plan Status: unchanged Assessment/Plan # Anemia, progressive. --> Anemia workup has been reviewed, will trend daily --> s/p 1 prbc --> hgb goal >7 # Leukocytosis secondary to underlying infection. --> on abx by Infectious Disease and at this time, # Thrombocytosis, --> likely secondary to reactive process. # Eosinophilia, currently mild. --> Closely monitor for improvement. # Coagulopathy with an INR of 1.4, --> potentially secondary to decreased p.o. intake. # Chronic medical conditions. Decrease vitamin K uptake. # Severe contraction deformity. # Gastrostomy tube history. # Current respiratory failure, status post tracheostomy. Subjective Date patient seen: May 09, 2018 ROS Limited/Unobtainable: Yes Allergies: Coded Allergies: No Known Allergies (Unverified , 03/07/17) All Systems: reviewed and negative except above Subjective Pt s/p 1 unit prbc. NAD. Objective Last 24 Hour Vital Signs Date Time Temp Pulse Resp B/P (MAP) Pulse Ox O2 Delivery O2 Flow Rate FiO2 05/09/18 21:02 97 17 30 05/09/18 20:37 94 99/64 05/09/18 20:00 99.0 94 18 101/64 100 Mechanical Ventilator 30 99.0 05/09/18 19:16 85 16 30 05/09/18 18:34 98.8 93 20 107/69 100 Mechanical Ventilator 30 98.8 05/09/18 17:09 99 16 30 05/09/18 17:07 98.9 05/09/18 16:45 99.4 103 20 107/67 100 Mechanical Ventilator 30 99.4 05/09/18 16:30 99.5 107 20 104/69 100 Mechanical Ventilator 30 99.5 05/09/18 16:08 99.5 05/09/18 16:00 103 05/09/18 16:00 30 05/09/18 15:22 104 15 30 05/09/18 12:41 104 16 30 05/09/18 12:31 99.2 05/09/18 12:01 99.2 05/09/18 12:00 103 05/09/18 12:00 30 05/09/18 11:54 99.2 105 20 118/66 100 Mechanical Ventilator 30 99.2 05/09/18 10:39 106 18 30 05/09/18 09:00 109 113/64 05/09/18 08:36 106 20 30 05/09/18 08:00 109 05/09/18 08:00 99.5 106 22 113/64 100 Mechanical Ventilator 30 99.5 05/09/18 08:00 30 05/09/18 06:44 108 16 30 05/09/18 05:09 104 24 30 05/09/18 04:00 109 05/09/18 04:00 30 05/09/18 04:00 98.3 98 24 124/58 100 Mechanical Ventilator 30 98.3 05/09/18 03:19 108 19 30 05/09/18 01:18 101 16 30 05/09/18 00:00 98.0 100 22 130/63 98 Mechanical Ventilator 30 98.0 05/09/18 00:00 30 05/08/18 23:39 98 05/08/18 22:56 94 17 30 05/08/18 21:30 105 136/71 Intake and Output 05/08/18 05/09/18 19:00 07:00 Intake Total 968.647 ml 715.0 ml Output Total 350 ml 300 ml Balance 618.647 ml 415.0 ml Intake Free Water 150 ml 100 ml IV Total 528.647 ml 220.0 ml Tube Feeding 240 ml 395 ml Other 50 ml Output Urine Total 350 ml 300 ml # Bowel Movements 2 1 Laboratory Tests 05/09/18 03:40: White Blood Count 13.0H, Red Blood Count 2.78L, Hemoglobin 7.5L, Hematocrit 24.5L, Mean Corpuscular Volume 88, Mean Corpuscular Hemoglobin 27.1, Mean Corpuscular Hemoglobin Concent 30.7L, Red Cell Distribution Width 15.4H, Platelet Count 449, Mean Platelet Volume 5.1L, Neutrophils (%) (Auto) , Lymphocytes (%) (Auto) , Monocytes (%) (Auto) , Eosinophils (%) (Auto) , Basophils (%) (Auto) , Differential Total Cells Counted 100, Neutrophils % ( Manual) 74, Lymphocytes % (Manual) 16L, Monocytes % (Manual) 6, Eosinophils % ( Manual) 4H, Basophils % (Manual) 0, Band Neutrophils 0, Platelet Estimate Adequate, Platelet Morphology Normal, Hypochromasia 1+, Anisocytosis 1+, Blister Cells 2+, Schistocytes 1+, Sodium Level 140, Potassium Level 2.9L, Chloride Level 110H, Carbon Dioxide Level 23, Anion Gap 7, Blood Urea Nitrogen 11, Creatinine 0.7, Estimat Glomerular Filtration Rate > 60, Glucose Level 133H , Calcium Level 7.6L Height (Feet): 5 Height (Inches): 6.00 Weight (Pounds): 108 General Appearance: WD/WN, no apparent distress, mild distress EENT: PERRL/EOMI Neck: normal alignment, supple Cardiovascular: normal peripheral pulses Respiratory/Chest: normal breath sounds, no respiratory distress Abdomen: soft Venancio James MD May 09, 2018 21:37
[2018-05-10] VITALS (7 sets, daily range): BP systolic 103–128; BP diastolic 62–77
[2018-05-10] MEDS: Piperacillin/Tazobactam 3.375 GM in D5W 110 ML IVPB SCH ×3 (01:14→17:45)
[2018-05-10 04:21] LABS: BASOPHILS % (AUTO) 0.4 % (0.0-2.0); EOSINOPHILS % (AUTO) 6.2 % (0.0-3.0); HEMATOCRIT 27.7 % (42.0-52.0); HEMOGLOBIN 8.7 G/DL (14.2-18.0); LYMPHOCYTES % (AUTO) 13.5 % (20.0-45.0); MEAN CORPUSCULAR VOLUME 88 FL (80-99); MONOCYTES % (AUTO) 8.2 % (1.0-10.0); NEUTROPHILS % (AUTO) 71.8 % (45.0-75.0); PLATELET COUNT 435 K/UL (150-450); RED BLOOD COUNT 3.14 M/UL (4.70-6.10); RED CELL DISTRIBUTION WIDTH 14.9 % (11.6-14.8); WHITE BLOOD COUNT 12.9 K/UL (4.8-10.8)
[2018-05-10 04:39] LABS: ALANINE AMINOTRANSFERASE 8 U/L (12-78); ALBUMIN 1.1 G/DL (3.4-5.0); ALBUMIN/GLOBULIN RATIO 0.2 (1.0-2.7); ALKALINE PHOSPHATASE 122 U/L (46-116); ANION GAP 6 mmol/L (5-15); ASPARTATE AMINO TRANSFERASE 13 U/L (15-37); BILIRUBIN,TOTAL 0.2 MG/DL (0.2-1.0); BLOOD UREA NITROGEN 10 mg/dL (7-18); CARBON DIOXIDE 24 MMOL/L (21-32); CHLORIDE 112 MMOL/L (98-107); CREATININE 0.6 MG/DL (0.55-1.30); PHOSPHORUS 2.4 MG/DL (2.5-4.9); POTASSIUM 3.8 MMOL/L (3.5-5.1); SODIUM 142 MMOL/L (136-145)
[2018-05-10] MEDS: Carvedilol 6.25mg Tab GT SCH ×2 (09:00→20:26)
[2018-05-10] MEDS: levETIRAcetam 500mg/5ml Liquid GT SCH ×2 (09:04→20:36)
[2018-05-10] MEDS: Amiodarone 200mg tab GT SCH (09:05)
--- NOTE | 2018-05-10 09:52 | General Progress Note ---
Assessment/Plan Problem List: (1) Transaminitis ICD Codes: R74.0 - Nonspecific elevation of levels of transaminase and lactic acid dehydrogenase [LDH] SNOMED: 287323847 (2) Diabetes mellitus type II, uncontrolled ICD Codes: E11.65 - Type 2 diabetes mellitus with hyperglycemia SNOMED: 88453594, 662722475 (3) HTN (hypertension) ICD Codes: I10 - Essential (primary) hypertension SNOMED: 96881299 (4) Seizure disorder ICD Codes: G40.909 - Epilepsy, unspecified, not intractable, without status epilepticus SNOMED: 528623989 (5) Atrial fibrillation ICD Codes: I48.91 - Unspecified atrial fibrillation SNOMED: 04221996 (6) G-tube site cellulitis ICD Codes: K94.22 - Gastrostomy infection; L03.319 - Cellulitis of trunk, unspecified SNOMED: 507386040, 874461701 Assessment/Plan JTF tolerated prn blood transfusion to keep HGB above 7 fu Subjective ROS Limited/Unobtainable: No Allergies: Coded Allergies: No Known Allergies (Unverified , 03/07/17) Objective Last 24 Hour Vital Signs Date Time Temp Pulse Resp B/P (MAP) Pulse Ox O2 Delivery O2 Flow Rate FiO2 05/10/18 09:00 112 106/77 05/10/18 08:58 110 17 30 05/10/18 08:00 30 05/10/18 08:00 99.7 112 19 106/77 100 Mechanical Ventilator 30 99.7 05/10/18 08:00 100 05/10/18 06:43 110 18 30 05/10/18 05:01 96 16 30 05/10/18 04:00 101 05/10/18 04:00 30 05/10/18 04:00 99.2 96 18 124/62 100 Mechanical Ventilator 30 99.2 05/10/18 03:06 89 21 30 05/10/18 01:05 97 16 30 05/10/18 00:00 30 05/10/18 00:00 99.7 93 18 128/69 100 Mechanical Ventilator 30 99.7 05/10/18 00:00 105 05/09/18 23:23 102 21 30 05/09/18 21:02 97 17 30 05/09/18 20:37 94 99/64 05/09/18 20:00 99.0 94 18 101/64 100 Mechanical Ventilator 30 99.0 05/09/18 20:00 30 05/09/18 20:00 88 05/09/18 19:16 85 16 30 05/09/18 18:34 98.8 93 20 107/69 100 Mechanical Ventilator 30 98.8 05/09/18 17:09 99 16 30 05/09/18 17:07 98.9 05/09/18 16:45 99.4 103 20 107/67 100 Mechanical Ventilator 30 99.4 05/09/18 16:30 99.5 107 20 104/69 100 Mechanical Ventilator 30 99.5 05/09/18 16:08 99.5 05/09/18 16:00 103 05/09/18 16:00 30 05/09/18 15:22 104 15 30 05/09/18 12:41 104 16 30 05/09/18 12:31 99.2 05/09/18 12:01 99.2 05/09/18 12:00 103 05/09/18 12:00 30 05/09/18 11:54 99.2 105 20 118/66 100 Mechanical Ventilator 30 99.2 05/09/18 10:39 106 18 30 Intake and Output 05/09/18 05/10/18 19:00 07:00 Intake Total 1280.0 ml 385 ml Output Total 400 ml Balance 880.0 ml 385 ml Intake Free Water 100 ml IV Total 510.0 ml Tube Feeding 420 ml 385 ml Blood Product 250 ml Output Urine Total 400 ml Laboratory Tests 05/10/18 03:55: White Blood Count 12.9H, Red Blood Count 3.14L, Hemoglobin 8.7L, Hematocrit 27.7L, Mean Corpuscular Volume 88, Mean Corpuscular Hemoglobin 27.6, Mean Corpuscular Hemoglobin Concent 31.2L, Red Cell Distribution Width 14.9H, Platelet Count 435, Mean Platelet Volume 5.5L, Neutrophils (%) (Auto) 71.8, Lymphocytes (%) (Auto) 13.5L, Monocytes (%) (Auto) 8.2, Eosinophils (%) (Auto) 6.2H, Basophils (%) (Auto) 0.4, Erythrocyte Sedimentation Rate 121H, Sodium Level 142, Potassium Level 3.8, Chloride Level 112H, Carbon Dioxide Level 24, Anion Gap 6, Blood Urea Nitrogen 10, Creatinine 0.6, Estimat Glomerular Filtration Rate > 60, Glucose Level 99, Calcium Level 8.0L, Phosphorus Level 2.4L, Magnesium Level 1.7L, Total Bilirubin 0.2, Aspartate Amino Transf (AST/ SGOT) 13L, Alanine Aminotransferase (ALT/SGPT) 8L, Alkaline Phosphatase 122H, C- Reactive Protein, Quantitative 4.5H, Total Protein 6.2L, Albumin 1.1L, Globulin 5.1, Albumin/Globulin Ratio 0.2L Height (Feet): 5 Height (Inches): 6.00 Weight (Pounds): 108 General Appearance: no apparent distress EENT: normal ENT inspection Neck: supple Cardiovascular: normal rate Respiratory/Chest: decreased breath sounds Abdomen: normal bowel sounds, non tender, soft Extremities: non-tender Niraj Alex MD May 10, 2018 09:52
[2018-05-10] MEDS ORDERED: Tubing IV Secondary IV ONE (11:02)
[2018-05-10] MEDS ORDERED: NS 275ml ONE (11:02)
--- NOTE | 2018-05-10 11:49 | General Progress Note ---
Assessment/Plan Status: unchanged Assessment/Plan # Anemia, progressive. --> Anemia workup has been reviewed, will trend daily --> prn blood transfusion to keep HGB above 7 --> hgb goal >7 # Leukocytosis secondary to underlying infection. --> on abx by Infectious Disease and at this time, # Thrombocytosis, --> likely secondary to reactive process. # Eosinophilia, currently mild. --> Closely monitor for improvement. # Coagulopathy with an INR of 1.4, --> potentially secondary to decreased p.o. intake. # Chronic medical conditions. Decrease vitamin K uptake. # Severe contraction deformity. # Gastrostomy tube. # Current respiratory failure, status post tracheostomy. Subjective Date patient seen: May 10, 2018 ROS Limited/Unobtainable: Yes Allergies: Coded Allergies: No Known Allergies (Unverified , 03/07/17) All Systems: reviewed and negative except above Subjective No overnight events. Prn blood transfusion to keep HGB above 7. Objective Last 24 Hour Vital Signs Date Time Temp Pulse Resp B/P (MAP) Pulse Ox O2 Delivery O2 Flow Rate FiO2 05/10/18 10:38 106 16 30 05/10/18 10:27 99.7 05/10/18 09:00 112 106/77 05/10/18 08:58 110 17 30 05/10/18 08:00 30 05/10/18 08:00 99.7 112 19 106/77 100 Mechanical Ventilator 30 99.7 05/10/18 08:00 100 05/10/18 06:43 110 18 30 05/10/18 05:01 96 16 30 05/10/18 04:00 101 05/10/18 04:00 30 05/10/18 04:00 99.2 96 18 124/62 100 Mechanical Ventilator 30 99.2 05/10/18 03:06 89 21 30 05/10/18 01:05 97 16 30 05/10/18 00:00 30 05/10/18 00:00 99.7 93 18 128/69 100 Mechanical Ventilator 30 99.7 05/10/18 00:00 105 05/09/18 23:23 102 21 30 05/09/18 21:02 97 17 30 05/09/18 20:37 94 99/64 05/09/18 20:00 99.0 94 18 101/64 100 Mechanical Ventilator 30 99.0 05/09/18 20:00 30 05/09/18 20:00 88 05/09/18 19:16 85 16 30 05/09/18 18:34 98.8 93 20 107/69 100 Mechanical Ventilator 30 98.8 05/09/18 17:09 99 16 30 05/09/18 17:07 98.9 05/09/18 16:45 99.4 103 20 107/67 100 Mechanical Ventilator 30 99.4 05/09/18 16:30 99.5 107 20 104/69 100 Mechanical Ventilator 30 99.5 05/09/18 16:08 99.5 05/09/18 16:00 103 05/09/18 16:00 30 05/09/18 15:22 104 15 30 05/09/18 12:41 104 16 30 05/09/18 12:31 99.2 05/09/18 12:01 99.2 05/09/18 12:00 103 05/09/18 12:00 30 05/09/18 11:54 99.2 105 20 118/66 100 Mechanical Ventilator 30 99.2 Intake and Output 05/09/18 05/10/18 19:00 07:00 Intake Total 1280.0 ml 385 ml Output Total 400 ml Balance 880.0 ml 385 ml Intake Free Water 100 ml IV Total 510.0 ml Tube Feeding 420 ml 385 ml Blood Product 250 ml Output Urine Total 400 ml Laboratory Tests 05/10/18 03:55: White Blood Count 12.9H, Red Blood Count 3.14L, Hemoglobin 8.7L, Hematocrit 27.7L, Mean Corpuscular Volume 88, Mean Corpuscular Hemoglobin 27.6, Mean Corpuscular Hemoglobin Concent 31.2L, Red Cell Distribution Width 14.9H, Platelet Count 435, Mean Platelet Volume 5.5L, Neutrophils (%) (Auto) 71.8, Lymphocytes (%) (Auto) 13.5L, Monocytes (%) (Auto) 8.2, Eosinophils (%) (Auto) 6.2H, Basophils (%) (Auto) 0.4, Erythrocyte Sedimentation Rate 121H, Sodium Level 142, Potassium Level 3.8, Chloride Level 112H, Carbon Dioxide Level 24, Anion Gap 6, Blood Urea Nitrogen 10, Creatinine 0.6, Estimat Glomerular Filtration Rate > 60, Glucose Level 99, Calcium Level 8.0L, Phosphorus Level 2.4L, Magnesium Level 1.7L, Total Bilirubin 0.2, Aspartate Amino Transf (AST/ SGOT) 13L, Alanine Aminotransferase (ALT/SGPT) 8L, Alkaline Phosphatase 122H, C- Reactive Protein, Quantitative 4.5H, Total Protein 6.2L, Albumin 1.1L, Globulin 5.1, Albumin/Globulin Ratio 0.2L Height (Feet): 5 Height (Inches): 6.00 Weight (Pounds): 108 General Appearance: no apparent distress EENT: PERRL/EOMI Neck: normal alignment Cardiovascular: tachycardia Respiratory/Chest: no respiratory distress Abdomen: soft Venancio James MD May 10, 2018 11:49
--- NOTE | 2018-05-10 13:35 | Pulmonolgy Critical Care Note ---
Critical Care - Asmt/Plan Problems: (1) G-tube site cellulitis (2) Gastrostomy tube skin breakdown (3) Ventilator dependence (4) Sacral decubitus ulcer, stage IV (5) AICD (automatic cardioverter/defibrillator) present (6) EF of 30 (7) Pressure ulcer, hip, left, unstageable Respiratory: monitor respiratory rate, adjust FIO2, CXR Cardiac: continue to monitor HR/BP Renal: F/U I&O Infectious Disease: check cultures Gastrointestinal: continue feedings/current rate Endocrine: monitor blood sugar Hematologic: transfuse if hgb<8.5 Neurologic: PRN Ativan, keep patient comfortable Affect: PRN ativan Prophylaxis: Protonix Notes Reviewed: oil well pumper, cardio Discussed with: nurses, consultants, spring encaserairfield manager - Objective Last 24 Hour Vital Signs Date Time Temp Pulse Resp B/P (MAP) Pulse Ox O2 Delivery O2 Flow Rate FiO2 05/10/18 12:00 99.2 105 17 121/73 100 Mechanical Ventilator 30 99.2 05/10/18 12:00 30 05/10/18 12:00 107 05/10/18 11:26 98.2 05/10/18 10:38 106 16 30 05/10/18 10:27 99.7 05/10/18 09:00 112 106/77 05/10/18 08:58 110 17 30 05/10/18 08:00 30 05/10/18 08:00 99.7 112 19 106/77 100 Mechanical Ventilator 30 99.7 05/10/18 08:00 100 05/10/18 06:43 110 18 30 05/10/18 05:01 96 16 30 05/10/18 04:00 101 05/10/18 04:00 30 05/10/18 04:00 99.2 96 18 124/62 100 Mechanical Ventilator 30 99.2 05/10/18 03:06 89 21 30 05/10/18 01:05 97 16 30 05/10/18 00:00 30 05/10/18 00:00 99.7 93 18 128/69 100 Mechanical Ventilator 30 99.7 05/10/18 00:00 105 05/09/18 23:23 102 21 30 05/09/18 21:02 97 17 30 05/09/18 20:37 94 99/64 05/09/18 20:00 99.0 94 18 101/64 100 Mechanical Ventilator 30 99.0 05/09/18 20:00 30 05/09/18 20:00 88 05/09/18 19:16 85 16 30 05/09/18 18:34 98.8 93 20 107/69 100 Mechanical Ventilator 30 98.8 05/09/18 17:09 99 16 30 05/09/18 16:45 99.4 103 20 107/67 100 Mechanical Ventilator 30 99.4 05/09/18 16:30 99.5 107 20 104/69 100 Mechanical Ventilator 30 99.5 05/09/18 16:08 99.5 05/09/18 16:00 103 05/09/18 16:00 30 05/09/18 15:22 104 15 30 Status: awake Condition: grave Lungs: clear Heart: HR/BP stable Abdomen: soft, non-tender Extremities: edema Decubiti: location Micro: Microbiology Date/Time Source Procedure Growth Status 05/07/18 18:30 Stool Clostridium difficile Toxin Assay - Final Complete Critical Care - Subjective ROS Limited/Unobtainable: Yes Condition: critical EKG Rhythm: Sinus Rhythm FI02: 30 Vent Support Breath Rate: 14 Vent Support Mode: AC Vent Tidal Volume: 600 Sputum Amount: Moderate PEEP: 5.0 PIP: 26 Tube Feeding Amount: 35 I&O: Intake and Output 05/09/18 05/10/18 19:00 07:00 Intake Total 1280.0 ml 385 ml Output Total 400 ml Balance 880.0 ml 385 ml Intake Free Water 100 ml IV Total 510.0 ml Tube Feeding 420 ml 385 ml Blood Product 250 ml Output Urine Total 400 ml Labs: Laboratory Tests Test 05/10/18 03:55 White Blood Count 12.9 K/UL (4.8-10.8) H Red Blood Count 3.14 M/UL (4.70-6.10) L Hemoglobin 8.7 G/DL (14.2-18.0) L Hematocrit 27.7 % (42.0-52.0) L Mean Corpuscular Volume 88 FL (80-99) Mean Corpuscular Hemoglobin 27.6 PG (27.0-31.0) Mean Corpuscular Hemoglobin Concent 31.2 G/DL (32.0-36.0) L Red Cell Distribution Width 14.9 % (11.6-14.8) H Platelet Count 435 K/UL (150-450) Mean Platelet Volume 5.5 FL (6.5-10.1) L Neutrophils (%) (Auto) 71.8 % (45.0-75.0) Lymphocytes (%) (Auto) 13.5 % (20.0-45.0) L Monocytes (%) (Auto) 8.2 % (1.0-10.0) Eosinophils (%) (Auto) 6.2 % (0.0-3.0) H Basophils (%) (Auto) 0.4 % (0.0-2.0) Erythrocyte Sedimentation Rate 121 MM/HR (0-20) H Sodium Level 142 MMOL/L (136-145) Potassium Level 3.8 MMOL/L (3.5-5.1) Chloride Level 112 MMOL/L (98-107) H Carbon Dioxide Level 24 MMOL/L (21-32) Anion Gap 6 mmol/L (5-15) Blood Urea Nitrogen 10 mg/dL (7-18) Creatinine 0.6 MG/DL (0.55-1.30) Estimat Glomerular Filtration Rate > 60 mL/min (>60) Glucose Level 99 MG/DL (74-106) Calcium Level 8.0 MG/DL (8.5-10.1) L Phosphorus Level 2.4 MG/DL (2.5-4.9) L Magnesium Level 1.7 MG/DL (1.8-2.4) L Total Bilirubin 0.2 MG/DL (0.2-1.0) Aspartate Amino Transf (AST/SGOT) 13 U/L (15-37) L Alanine Aminotransferase (ALT/SGPT) 8 U/L (12-78) L Alkaline Phosphatase 122 U/L (46-116) H C-Reactive Protein, Quantitative 4.5 mg/dL (0.00-0.90) H Total Protein 6.2 G/DL (6.4-8.2) L Albumin 1.1 G/DL (3.4-5.0) L Globulin 5.1 g/dL Albumin/Globulin Ratio 0.2 (1.0-2.7) L Shani Moses MD May 10, 2018 13:35
--- NOTE | 2018-05-10 14:21 | General Surgery Progress Note ---
General Surgery-Progress Note Subjective Additional Comments no acute events. Objective Last 24 Hour Vital Signs Date Time Temp Pulse Resp B/P (MAP) Pulse Ox O2 Delivery O2 Flow Rate FiO2 05/10/18 12:00 99.2 105 17 121/73 100 Mechanical Ventilator 30 99.2 05/10/18 12:00 30 05/10/18 12:00 107 05/10/18 11:26 98.2 05/10/18 10:38 106 16 30 05/10/18 10:27 99.7 05/10/18 09:00 112 106/77 05/10/18 08:58 110 17 30 05/10/18 08:00 30 05/10/18 08:00 99.7 112 19 106/77 100 Mechanical Ventilator 30 99.7 05/10/18 08:00 100 05/10/18 06:43 110 18 30 05/10/18 05:01 96 16 30 05/10/18 04:00 101 05/10/18 04:00 30 05/10/18 04:00 99.2 96 18 124/62 100 Mechanical Ventilator 30 99.2 05/10/18 03:06 89 21 30 05/10/18 01:05 97 16 30 05/10/18 00:00 30 05/10/18 00:00 99.7 93 18 128/69 100 Mechanical Ventilator 30 99.7 05/10/18 00:00 105 05/09/18 23:23 102 21 30 05/09/18 21:02 97 17 30 05/09/18 20:37 94 99/64 05/09/18 20:00 99.0 94 18 101/64 100 Mechanical Ventilator 30 99.0 05/09/18 20:00 30 05/09/18 20:00 88 05/09/18 19:16 85 16 30 05/09/18 18:34 98.8 93 20 107/69 100 Mechanical Ventilator 30 98.8 05/09/18 17:09 99 16 30 05/09/18 16:45 99.4 103 20 107/67 100 Mechanical Ventilator 30 99.4 05/09/18 16:30 99.5 107 20 104/69 100 Mechanical Ventilator 30 99.5 05/09/18 16:08 99.5 05/09/18 16:00 103 05/09/18 16:00 30 05/09/18 15:22 104 15 30 I&O Intake and Output 05/09/18 05/10/18 19:00 07:00 Intake Total 1280.0 ml 385 ml Output Total 400 ml Balance 880.0 ml 385 ml Intake Free Water 100 ml IV Total 510.0 ml Tube Feeding 420 ml 385 ml Blood Product 250 ml Output Urine Total 400 ml Dressing: saturated Wound: clean Drains: none Cardiovascular: RSR Respiratory: clear Abdomen: soft, flat, present bowel sounds Extremities: no cyanosis Laboratory Tests Test 05/10/18 03:55 White Blood Count 12.9 K/UL (4.8-10.8) H Red Blood Count 3.14 M/UL (4.70-6.10) L Hemoglobin 8.7 G/DL (14.2-18.0) L Hematocrit 27.7 % (42.0-52.0) L Mean Corpuscular Volume 88 FL (80-99) Mean Corpuscular Hemoglobin 27.6 PG (27.0-31.0) Mean Corpuscular Hemoglobin Concent 31.2 G/DL (32.0-36.0) L Red Cell Distribution Width 14.9 % (11.6-14.8) H Platelet Count 435 K/UL (150-450) Mean Platelet Volume 5.5 FL (6.5-10.1) L Neutrophils (%) (Auto) 71.8 % (45.0-75.0) Lymphocytes (%) (Auto) 13.5 % (20.0-45.0) L Monocytes (%) (Auto) 8.2 % (1.0-10.0) Eosinophils (%) (Auto) 6.2 % (0.0-3.0) H Basophils (%) (Auto) 0.4 % (0.0-2.0) Erythrocyte Sedimentation Rate 121 MM/HR (0-20) H Sodium Level 142 MMOL/L (136-145) Potassium Level 3.8 MMOL/L (3.5-5.1) Chloride Level 112 MMOL/L (98-107) H Carbon Dioxide Level 24 MMOL/L (21-32) Anion Gap 6 mmol/L (5-15) Blood Urea Nitrogen 10 mg/dL (7-18) Creatinine 0.6 MG/DL (0.55-1.30) Estimat Glomerular Filtration Rate > 60 mL/min (>60) Glucose Level 99 MG/DL (74-106) Calcium Level 8.0 MG/DL (8.5-10.1) L Phosphorus Level 2.4 MG/DL (2.5-4.9) L Magnesium Level 1.7 MG/DL (1.8-2.4) L Total Bilirubin 0.2 MG/DL (0.2-1.0) Aspartate Amino Transf (AST/SGOT) 13 U/L (15-37) L Alanine Aminotransferase (ALT/SGPT) 8 U/L (12-78) L Alkaline Phosphatase 122 U/L (46-116) H C-Reactive Protein, Quantitative 4.5 mg/dL (0.00-0.90) H Total Protein 6.2 G/DL (6.4-8.2) L Albumin 1.1 G/DL (3.4-5.0) L Globulin 5.1 g/dL Albumin/Globulin Ratio 0.2 (1.0-2.7) L Plan Problems: (1) Sacral decubitus ulcer, stage IV Assessment & Plan: Surgery: stage IV sacral decubitus ulcer - clean, no signs of active infection, no tracking, down to coccyx, some granulation tissue, no significant fibrinous tissue stage IV left hip decubitus ulcer - clean, no signs of active infection, mild 3 o'clock tracking, some granulation tissue, mild fibrinous tissue stage IV left buttock decubitus ulcer - clean, no signs of active infection, no tracking, some granulation tissue, mild fibrinous tissue stage IV right hip decubitus ulcer - clean, no signs of active infection, no tracking, some granulation tissue, moderate fibrinous tissue stage IV right buttock decubitus ulcer - clean, no signs of active infection, no tracking, some granulation tissue, moderate fibrinous tissue bilateral heel/foot wounds - no signs of active infection. abdominal g tube site wounds - defer to GI. g tube recently replaced. All wounds present upon admission. As for care, for now please was wounds, place dry guaze to wound bed, then cover with foam dressing or ABD 2-3 times per day. need debridement of right hip and buttock wounds to help with healing - pending consent. from report family member in hospital currently and unable to consent wounds seem to be improving with great nursing wound care. will follow with recs and monitor. thank you for this consultation. will follow with recs. (2) Pressure ulcer, hip, left, unstageable Derek Dong May 10, 2018 14:21
--- NOTE | 2018-05-10 18:20 | Internal Med Progress Note ---
Subjective Date of Service: May 10, 2018 Physician Name SolisAaron Attending Physician Roland Box MD Current Medications Medications (Trade) Dose Ordered Sig/Tameka Route PRN Reason Start Time Stop Time Status Last Admin Dose Admin Acetaminophen (Tylenol) 650 mg Q4H PRN ORAL fever 05/02/18 22:15 06/01/18 22:14 05/10/18 10:27 Al Hydroxide/Mg Hydroxide (Mylanta II) 30 ml Q6H PRN ORAL dyspepsia 05/02/18 22:15 06/01/18 22:14 Amiodarone HCl (Cordarone) 200 mg DAILY GT 05/03/18 09:00 06/02/18 08:59 05/10/18 09:05 Carvedilol (Coreg) 6.25 mg EVERY 12 HOURS GT 05/03/18 21:00 06/02/18 08:59 05/08/18 21:30 Daptomycin 200 mg/ Sodium Chloride 55 ml @ 100 mls/hr Q24H IV 05/06/18 21:00 05/13/18 20:59 05/09/18 21:25 Dextrose (Dextrose 50%) STAT PRN IV Hypoglycemia 05/06/18 15:15 06/05/18 15:14 Dextrose (Dextrose 50%) STAT PRN IV Hypoglycemia 05/06/18 15:15 06/05/18 15:14 Diphenhydramine HCl (Benadryl) 25 mg Q6H PRN ORAL Itching/Pruritis 05/02/18 22:15 06/01/18 22:14 Levetiracetam (Keppra) 500 mg Q12HR GT 05/03/18 09:00 06/02/18 08:59 05/10/18 09:04 Nitroglycerin (Ntg) 0.4 mg Q5M X 3 DOSES PRN SL Prn Chest Pain 05/02/18 22:15 06/01/18 22:14 Ondansetron HCl (Zofran) 4 mg Q6H PRN IVP Nausea & Vomiting 05/02/18 22:15 06/01/18 22:14 Piperacillin Sod/ Tazobactam Sod 3.375 gm/Dextrose 110 ml @ 27.5 mls/hr Q8HR@0100,0900,1700 IVPB 05/06/18 17:00 05/13/18 16:59 05/10/18 17:45 Polyethylene Glycol (Miralax) 17 gm HSPRN PRN ORAL Constipation 05/02/18 22:15 06/01/18 22:14 Allergies: Coded Allergies: No Known Allergies (Unverified , 03/07/17) ROS Limited/Unobtainable: Yes Subjective 58 YO M admitted with infected gastrostomy tube site. Cover for Int Med-Dr Box. LIGIA. Vent dependent on trach Objective Last Vital Signs Date Time Temp Pulse Resp B/P (MAP) Pulse Ox O2 Delivery O2 Flow Rate FiO2 05/10/18 17:00 108 18 30 05/10/18 16:00 99.3 106/63 100 Mechanical Ventilator 99.3 Laboratory Tests Test 05/10/18 03:55 White Blood Count 12.9 K/UL (4.8-10.8) H Red Blood Count 3.14 M/UL (4.70-6.10) L Hemoglobin 8.7 G/DL (14.2-18.0) L Hematocrit 27.7 % (42.0-52.0) L Mean Corpuscular Volume 88 FL (80-99) Mean Corpuscular Hemoglobin 27.6 PG (27.0-31.0) Mean Corpuscular Hemoglobin Concent 31.2 G/DL (32.0-36.0) L Red Cell Distribution Width 14.9 % (11.6-14.8) H Platelet Count 435 K/UL (150-450) Mean Platelet Volume 5.5 FL (6.5-10.1) L Neutrophils (%) (Auto) 71.8 % (45.0-75.0) Lymphocytes (%) (Auto) 13.5 % (20.0-45.0) L Monocytes (%) (Auto) 8.2 % (1.0-10.0) Eosinophils (%) (Auto) 6.2 % (0.0-3.0) H Basophils (%) (Auto) 0.4 % (0.0-2.0) Erythrocyte Sedimentation Rate 121 MM/HR (0-20) H Sodium Level 142 MMOL/L (136-145) Potassium Level 3.8 MMOL/L (3.5-5.1) Chloride Level 112 MMOL/L (98-107) H Carbon Dioxide Level 24 MMOL/L (21-32) Anion Gap 6 mmol/L (5-15) Blood Urea Nitrogen 10 mg/dL (7-18) Creatinine 0.6 MG/DL (0.55-1.30) Estimat Glomerular Filtration Rate > 60 mL/min (>60) Glucose Level 99 MG/DL (74-106) Calcium Level 8.0 MG/DL (8.5-10.1) L Phosphorus Level 2.4 MG/DL (2.5-4.9) L Magnesium Level 1.7 MG/DL (1.8-2.4) L Total Bilirubin 0.2 MG/DL (0.2-1.0) Aspartate Amino Transf (AST/SGOT) 13 U/L (15-37) L Alanine Aminotransferase (ALT/SGPT) 8 U/L (12-78) L Alkaline Phosphatase 122 U/L (46-116) H C-Reactive Protein, Quantitative 4.5 mg/dL (0.00-0.90) H Total Protein 6.2 G/DL (6.4-8.2) L Albumin 1.1 G/DL (3.4-5.0) L Globulin 5.1 g/dL Albumin/Globulin Ratio 0.2 (1.0-2.7) L Microbiology Date/Time Source Procedure Growth Status 05/07/18 18:30 Stool Clostridium difficile Toxin Assay - Final Complete Intake and Output 05/09/18 05/10/18 19:00 07:00 Intake Total 1280.0 ml 385 ml Output Total 400 ml Balance 880.0 ml 385 ml Intake Free Water 100 ml IV Total 510.0 ml Tube Feeding 420 ml 385 ml Blood Product 250 ml Output Urine Total 400 ml Objective General Appearance: alert, mild distress, thin EENT: PERRL/EOMI, normal ENT inspection Neck: non-tender, normal alignment, supple Cardiovascular: normal peripheral pulses, normal rate, regular rhythm, no gallop/murmur, no JVD Respiratory/Chest: Trach; mech vent; respiratory distress, crackles/rales, rhonchi - bilaterally, expiratory wheezing Abdomen: normal bowel sounds, non tender, soft, no organomegaly, no mass Extremities: normal inspection 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 pneumo, rovidencia, and enterococcus. Continue daptomycin and zosyn per ID (5) Sacral decubitus ulcer, stage IV (6) Tracheostomy care (7) Chronic respiratory failure Assessment & Plan: Vent dep. See pulmonary note. (8) Seizure disorder Assessment & Plan: Continue keppra (9) Atrial fibrillation Assessment & Plan: Continue amiodarone per cardiology (10) CHF (congestive heart failure) Assessment & Plan: See cardiology note. (11) Diabetes mellitus type II, uncontrolled (12) Cerebral vascular disease (13) Feeding by G-tube (14) Hypokalemia Assessment & Plan: replace potassium (15) Anemia Assessment & Plan: Transfuse 1 unit PRBC today Status: unchanged Aaron Solis MD May 10, 2018 18:20
[2018-05-10] MEDS: NS IV SCH (20:36)
[2018-05-10] MEDS: DAPTOMYCIN IV SCH (20:36)
[2018-05-11] VITALS (7 sets, daily range): BP systolic 106–130; BP diastolic 58–79
[2018-05-11] MEDS: Piperacillin/Tazobactam 3.375 GM in D5W 110 ML IVPB SCH ×3 (00:50→16:55)
[2018-05-11 05:54] LABS: BASOPHILS % (AUTO) 0.4 % (0.0-2.0); EOSINOPHILS % (AUTO) 6.2 % (0.0-3.0); HEMATOCRIT 26.6 % (42.0-52.0); HEMOGLOBIN 8.4 G/DL (14.2-18.0); LYMPHOCYTES % (AUTO) 17.5 % (20.0-45.0); MEAN CORPUSCULAR VOLUME 88 FL (80-99); MONOCYTES % (AUTO) 6.3 % (1.0-10.0); NEUTROPHILS % (AUTO) 69.6 % (45.0-75.0); PLATELET COUNT 472 K/UL (150-450); RED BLOOD COUNT 3.01 M/UL (4.70-6.10); RED CELL DISTRIBUTION WIDTH 14.4 % (11.6-14.8); WHITE BLOOD COUNT 11.8 K/UL (4.8-10.8)
[2018-05-11 06:07] LABS: ALANINE AMINOTRANSFERASE 9 U/L (12-78); ALBUMIN 1.1 G/DL (3.4-5.0); ALBUMIN/GLOBULIN RATIO 0.2 (1.0-2.7); ALKALINE PHOSPHATASE 131 U/L (46-116); ANION GAP 4 mmol/L (5-15); ASPARTATE AMINO TRANSFERASE 15 U/L (15-37); BILIRUBIN,TOTAL 0.2 MG/DL (0.2-1.0); BLOOD UREA NITROGEN 11 mg/dL (7-18); CALCIUM 7.9 MG/DL (8.5-10.1); CARBON DIOXIDE 26 MMOL/L (21-32); CHLORIDE 112 MMOL/L (98-107); CREATININE 0.7 MG/DL (0.55-1.30); PHOSPHORUS 2.1 MG/DL (2.5-4.9); POTASSIUM 3.7 MMOL/L (3.5-5.1); SODIUM 142 MMOL/L (136-145)
[2018-05-11] MEDS: levETIRAcetam 500mg/5ml Liquid GT SCH ×2 (09:40→20:15)
[2018-05-11] MEDS: Amiodarone 200mg tab GT SCH (09:40)
[2018-05-11] MEDS: Carvedilol 6.25mg Tab GT SCH ×2 (09:41→20:15)
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
[2018-05-11] MEDS ORDERED: Potassium Phosphate 30 MM in NS 275 ML IV ONE (11:00)
--- NOTE | 2018-05-11 11:04 | Pulmonology Progress Note ---
Assessment/Plan Problems: (1) Malfunction of gastrostomy tube (2) Sepsis (3) Chronic respiratory acidosis (4) Pressure ulcer, hip, left, unstageable (5) Cerebral vascular disease (6) EF of 30 (7) AICD (automatic cardioverter/defibrillator) present (8) Feeding by G-tube Respiratory: monitor respiratory rate, adjust FIO2 Cardiac: continue to monitor HR/BP Renal: increase IV fluid Gastrointestinal: continue feedings/current rate Neurologic: PRN Ativan, PRN Morphine, keep patient comfortable Affect: PRN ativan Notes Reviewed: cardio Discussed with: nurses, consultants, casey saw operator Subjective ROS Limited/Unobtainable: No Constitutional: Reports: no symptoms HEENT: Repors: no symptoms Allergies: Coded Allergies: No Known Allergies (Unverified , 03/07/17) Objective Last 24 Hour Vital Signs Date Time Temp Pulse Resp B/P (MAP) Pulse Ox O2 Delivery O2 Flow Rate FiO2 05/11/18 09:41 111 116/74 05/11/18 08:47 111 20 30 05/11/18 08:30 99.8 111 18 116/74 100 Mechanical Ventilator 30 99.8 05/11/18 06:50 107 17 30 05/11/18 05:03 114 18 30 05/11/18 04:00 98.9 111 20 107/72 100 Mechanical Ventilator 30 98.9 05/11/18 04:00 30 05/11/18 04:00 97 05/11/18 03:10 105 17 30 05/11/18 01:49 98.4 05/11/18 01:40 98.4 98.4 05/11/18 01:25 109 21 30 05/11/18 00:50 99.6 05/11/18 00:00 30 05/11/18 00:00 110 05/11/18 00:00 99.6 110 16 106/58 100 Mechanical Ventilator 30 99.6 05/10/18 23:25 111 16 30 05/10/18 21:37 99.0 107 18 103/65 100 Mechanical Ventilator 30 99.0 05/10/18 21:18 110 18 30 05/10/18 20:26 107 103/65 05/10/18 20:00 99.0 107 18 103/65 100 Mechanical Ventilator 30 99.0 05/10/18 20:00 30 05/10/18 20:00 108 05/10/18 18:38 109 18 30 05/10/18 17:00 108 18 30 05/10/18 16:05 104 05/10/18 16:00 30 05/10/18 16:00 99.3 103 19 106/63 100 Mechanical Ventilator 30 99.3 05/10/18 14:35 100 16 30 05/10/18 13:10 98 18 30 05/10/18 12:00 99.2 105 17 121/73 100 Mechanical Ventilator 30 99.2 05/10/18 12:00 30 05/10/18 12:00 107 Intake and Output 05/10/18 05/11/18 19:00 07:00 Intake Total 485 ml 730.0 ml Output Total 400 ml Balance 485 ml 330.0 ml Intake Free Water 65 ml 100 ml IV Total 210.0 ml Tube Feeding 420 ml 420 ml Output Urine Total 400 ml # Bowel Movements 1 General Appearance: cachetic HEENT: normocephalic, atraumatic Respiratory/Chest: chest wall non-tender, lungs clear Cardiovascular: normal peripheral pulses, normal rate, regular rhythm Abdomen: normal bowel sounds, soft, non tender Extremities: no cyanosis, no clubbing Laboratory Tests 05/11/18 04:33: White Blood Count 11.8H, Red Blood Count 3.01L, Hemoglobin 8.4L, Hematocrit 26.6L, Mean Corpuscular Volume 88, Mean Corpuscular Hemoglobin 28.1, Mean Corpuscular Hemoglobin Concent 31.8L, Red Cell Distribution Width 14.4, Platelet Count 472H, Mean Platelet Volume 5.3L, Neutrophils (%) (Auto) 69.6, Lymphocytes (%) (Auto) 17.5L, Monocytes (%) (Auto) 6.3, Eosinophils (%) (Auto) 6.2H, Basophils (%) (Auto) 0.4, Sodium Level 142, Potassium Level 3.7, Chloride Level 112H, Carbon Dioxide Level 26, Anion Gap 4L, Blood Urea Nitrogen 11, Creatinine 0.7, Estimat Glomerular Filtration Rate > 60, Glucose Level 114H, Calcium Level 7.9L, Phosphorus Level 2.1L, Magnesium Level 1.7L, Total Bilirubin 0.2, Aspartate Amino Transf (AST/SGOT) 15, Alanine Aminotransferase ( ALT/SGPT) 9L, Alkaline Phosphatase 131H, Total Protein 6.3L, Albumin 1.1L, Globulin 5.2, Albumin/Globulin Ratio 0.2L Current Medications Medications (Trade) Dose Ordered Sig/Tameka Route PRN Reason Start Time Stop Time Status Last Admin Dose Admin Acetaminophen (Tylenol) 650 mg Q4H PRN ORAL fever 05/02/18 22:15 06/01/18 22:14 05/11/18 00:50 Al Hydroxide/Mg Hydroxide (Mylanta II) 30 ml Q6H PRN ORAL dyspepsia 05/02/18 22:15 06/01/18 22:14 Amiodarone HCl (Cordarone) 200 mg DAILY GT 05/03/18 09:00 06/02/18 08:59 05/11/18 09:40 Carvedilol (Coreg) 6.25 mg EVERY 12 HOURS GT 05/03/18 21:00 06/02/18 08:59 05/11/18 09:41 Daptomycin 200 mg/ Sodium Chloride 55 ml @ 100 mls/hr Q24H IV 05/06/18 21:00 05/13/18 20:59 05/10/18 20:36 Dextrose (Dextrose 50%) STAT PRN IV Hypoglycemia 05/06/18 15:15 06/05/18 15:14 Dextrose (Dextrose 50%) STAT PRN IV Hypoglycemia 05/06/18 15:15 06/05/18 15:14 Diphenhydramine HCl (Benadryl) 25 mg Q6H PRN ORAL Itching/Pruritis 05/02/18 22:15 06/01/18 22:14 Levetiracetam (Keppra) 500 mg Q12HR GT 05/03/18 09:00 06/02/18 08:59 05/11/18 09:40 Magnesium Sulfate 100 ml @ 100 mls/hr Q1H IVPB 05/11/18 10:00 05/11/18 11:59 Nitroglycerin (Ntg) 0.4 mg Q5M X 3 DOSES PRN SL Prn Chest Pain 05/02/18 22:15 06/01/18 22:14 Ondansetron HCl (Zofran) 4 mg Q6H PRN IVP Nausea & Vomiting 05/02/18 22:15 06/01/18 22:14 Piperacillin Sod/ Tazobactam Sod 3.375 gm/Dextrose 110 ml @ 27.5 mls/hr Q8HR@0100,0900,1700 IVPB 05/06/18 17:00 05/13/18 16:59 05/11/18 09:44 Polyethylene Glycol (Miralax) 17 gm HSPRN PRN ORAL Constipation 05/02/18 22:15 06/01/18 22:14 Potassium Phosphate 30 mm/ Sodium Chloride 285 ml @ 47.5 mls/hr ONCE ONCE IV 05/11/18 11:00 05/11/18 16:59 Shani Moses MD May 11, 2018 11:04
--- NOTE | 2018-05-11 11:37 | General Progress Note ---
Assessment/Plan Status: unchanged Assessment/Plan # Anemia, progressive. likely from chronic disease --> Anemia workup has been reviewed, will trend daily --> prn blood transfusion to keep HGB above 7 --> hgb goal >7 # Leukocytosis secondary to underlying infection. --> on abx by Infectious Disease and at this time # Thrombocytosis, --> likely secondary to reactive process. # Eosinophilia, currently mild. --> Closely monitor for improvement. # Coagulopathy with an INR of 1.4, --> potentially secondary to decreased p.o. intake. # Chronic medical conditions. Decrease vitamin K uptake. # Severe contraction deformity. # Gastrostomy tube. --> infection at site, on abx # Current respiratory failure, status post tracheostomy. Subjective Date patient seen: May 11, 2018 ROS Limited/Unobtainable: Yes Constitutional: Reports: fever Allergies: Coded Allergies: No Known Allergies (Unverified , 03/07/17) All Systems: reviewed and negative except above Subjective Elevated temp overnight, on tylenol. Prn blood transfusion to keep HGB above 7. Objective Last 24 Hour Vital Signs Date Time Temp Pulse Resp B/P (MAP) Pulse Ox O2 Delivery O2 Flow Rate FiO2 05/11/18 09:41 111 116/74 05/11/18 08:47 111 20 30 05/11/18 08:30 99.8 111 18 116/74 100 Mechanical Ventilator 30 99.8 05/11/18 06:50 107 17 30 05/11/18 05:03 114 18 30 05/11/18 04:00 98.9 111 20 107/72 100 Mechanical Ventilator 30 98.9 05/11/18 04:00 30 05/11/18 04:00 97 05/11/18 03:10 105 17 30 05/11/18 01:49 98.4 05/11/18 01:40 98.4 98.4 05/11/18 01:25 109 21 30 05/11/18 00:50 99.6 05/11/18 00:00 30 05/11/18 00:00 110 05/11/18 00:00 99.6 110 16 106/58 100 Mechanical Ventilator 30 99.6 05/10/18 23:25 111 16 30 05/10/18 21:37 99.0 107 18 103/65 100 Mechanical Ventilator 30 99.0 05/10/18 21:18 110 18 30 05/10/18 20:26 107 103/65 05/10/18 20:00 99.0 107 18 103/65 100 Mechanical Ventilator 30 99.0 05/10/18 20:00 30 05/10/18 20:00 108 05/10/18 18:38 109 18 30 05/10/18 17:00 108 18 30 05/10/18 16:05 104 05/10/18 16:00 30 05/10/18 16:00 99.3 103 19 106/63 100 Mechanical Ventilator 30 99.3 05/10/18 14:35 100 16 30 05/10/18 13:10 98 18 30 05/10/18 12:00 99.2 105 17 121/73 100 Mechanical Ventilator 30 99.2 05/10/18 12:00 30 05/10/18 12:00 107 Intake and Output 05/10/18 05/11/18 19:00 07:00 Intake Total 485 ml 730.0 ml Output Total 400 ml Balance 485 ml 330.0 ml Intake Free Water 65 ml 100 ml IV Total 210.0 ml Tube Feeding 420 ml 420 ml Output Urine Total 400 ml # Bowel Movements 1 Laboratory Tests 05/11/18 04:33: White Blood Count 11.8H, Red Blood Count 3.01L, Hemoglobin 8.4L, Hematocrit 26.6L, Mean Corpuscular Volume 88, Mean Corpuscular Hemoglobin 28.1, Mean Corpuscular Hemoglobin Concent 31.8L, Red Cell Distribution Width 14.4, Platelet Count 472H, Mean Platelet Volume 5.3L, Neutrophils (%) (Auto) 69.6, Lymphocytes (%) (Auto) 17.5L, Monocytes (%) (Auto) 6.3, Eosinophils (%) (Auto) 6.2H, Basophils (%) (Auto) 0.4, Sodium Level 142, Potassium Level 3.7, Chloride Level 112H, Carbon Dioxide Level 26, Anion Gap 4L, Blood Urea Nitrogen 11, Creatinine 0.7, Estimat Glomerular Filtration Rate > 60, Glucose Level 114H, Calcium Level 7.9L, Phosphorus Level 2.1L, Magnesium Level 1.7L, Total Bilirubin 0.2, Aspartate Amino Transf (AST/SGOT) 15, Alanine Aminotransferase ( ALT/SGPT) 9L, Alkaline Phosphatase 131H, Total Protein 6.3L, Albumin 1.1L, Globulin 5.2, Albumin/Globulin Ratio 0.2L Height (Feet): 5 Height (Inches): 6.00 Weight (Pounds): 108 General Appearance: WD/WN, no apparent distress EENT: PERRL/EOMI Neck: normal alignment Cardiovascular: normal peripheral pulses, no JVD Respiratory/Chest: no respiratory distress Abdomen: no mass Venancio James MD May 11, 2018 11:37
--- NOTE | 2018-05-11 16:34 | Infectious Diseases Prog Note ---
Assessment/Plan Assessment/Plan Assessment: GT site cellulitis; resolving -wound cx KPC/MDR K. pna, MDR P. 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 u/a ordered, never collected Bcx NTD Cdiff neg Low grade fever -CXR: No acute cardiopulmonary process. -Bcx Neg ISAURO, resolving Multiple lower extremity decubitus (including stage IV sacral decubitus) w/ likely chronic OM- no signs of active infection -04/17 wound cx L trochanter: ESBL P. stuartti (colonizer) 02/2018 WndC x: MDR Providencia (+ skin colonizer ) Bone scan limited for eval of osteomyelitis. ( due to contracted Ext. ) -s/p 2 weeks of treatment 02/2018 -L hip necrotic/unstagelable decubitus ulcer SP Debridement 11/29 ; Wnd Cx : ACB and Kleb and Strp GrG , MRSA REcent Sepsis 2ry to HCAP, MDR 04/2018, s/p Rx -sp cx S. maltophilia (S bactrim, levaquin), MDR PsA (S Amikacin, Genta) Hx of MSSA bacteremia 11/2017 2ry to infected sacral wound ( SP 4 wks AB rx ) Hx of Pseudomonas urinary tract infection. hx of SCx: MDR-PSA ( colonizer ) Ch transaminitis /cirrhosis Hep C Ab + VDRF Status post trach and percutaneous endoscopic gastrostomy. Dementia Seizure disorder. History of pacemaker placement/AICD -hx of Vtach. Hypertension. COPD. Diabetes. Afib Cardiomyopathy Rheumatic tricuspid valve disease FTT GERD CVA/TIA LTAC resident NKDA FUll code Plan: -Continue IV Daptomycin and Zosyn abx d# 9 /10 for GT site cellulitis -if worsening WBC, fevers and no other additional source of infection, will add Tigecycline to cover CRE in wound cx (currently thought to be colonizer) -05/06 SP Cefepime and Flagyl #4, IV Vanco #4 -04/29 SPIV Bactrim 5mg/kg q8hr #10 (S.maltophilia PNA), Meropenem #11, IV Amikacin and INH colistin #9 (MDR PsA) -/ SP IV Vanco and Zosyn #4 -03/04 SP Meropenem #14 -03/01 SP IV Vanco #7 -02/20 SP vancomycin and Zosyn d#3 -2/7 SP IV Vancomycin # -12/16 SP Meropenem #14 -11/22/17 SP IV Zosyn d# 3 Subjective Allergies: Coded Allergies: No Known Allergies (Unverified , 03/07/17) Subjective Tm 100.3 WBC improving Bcx NTD Objective Vital Signs Last 24 Hour Vital Signs Date Time Temp Pulse Resp B/P (MAP) Pulse Ox O2 Delivery O2 Flow Rate FiO2 05/11/18 13:57 99 17 30 05/11/18 13:28 100.3 05/11/18 13:15 100.3 100.3 05/11/18 12:00 98 05/11/18 12:00 30 05/11/18 11:13 99 19 30 05/11/18 09:41 111 116/74 05/11/18 08:47 111 20 30 05/11/18 08:30 99.8 111 18 116/74 100 Mechanical Ventilator 30 99.8 05/11/18 08:00 115 05/11/18 08:00 30 05/11/18 06:50 107 17 30 05/11/18 05:03 114 18 30 05/11/18 04:00 98.9 111 20 107/72 100 Mechanical Ventilator 30 98.9 05/11/18 04:00 30 05/11/18 04:00 97 05/11/18 03:10 105 17 30 05/11/18 01:49 98.4 05/11/18 01:40 98.4 98.4 05/11/18 01:25 109 21 30 05/11/18 00:50 99.6 05/11/18 00:00 30 05/11/18 00:00 110 05/11/18 00:00 99.6 110 16 106/58 100 Mechanical Ventilator 30 99.6 05/10/18 23:25 111 16 30 05/10/18 21:37 99.0 107 18 103/65 100 Mechanical Ventilator 30 99.0 05/10/18 21:18 110 18 30 05/10/18 20:26 107 103/65 05/10/18 20:00 99.0 107 18 103/65 100 Mechanical Ventilator 30 99.0 05/10/18 20:00 30 05/10/18 20:00 108 05/10/18 18:38 109 18 30 05/10/18 17:00 108 18 30 Height (Feet): 5 Height (Inches): 6.00 Weight (Pounds): 108 Objective General Appearance: alert, mild distress, thin EENT: PERRL/EOMI, normal ENT inspection Neck: non-tender, normal alignment, supple Cardiovascular: normal peripheral pulses, normal rate, regular rhythm, no gallop/murmur, no JVD Respiratory/Chest: respiratory distress, crackles/rales, rhonchi - bilaterally , expiratory wheezing Abdomen: normal bowel sounds, non tender, soft, no organomegaly, no mass Extremities: normal inspection 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 Skin: normal pigmentation, warm/dry, other - G-tube site cellulitis Laboratory Tests Test 05/11/18 04:33 White Blood Count 11.8 K/UL (4.8-10.8) H Red Blood Count 3.01 M/UL (4.70-6.10) L Hemoglobin 8.4 G/DL (14.2-18.0) L Hematocrit 26.6 % (42.0-52.0) L Mean Corpuscular Volume 88 FL (80-99) Mean Corpuscular Hemoglobin 28.1 PG (27.0-31.0) Mean Corpuscular Hemoglobin Concent 31.8 G/DL (32.0-36.0) L Red Cell Distribution Width 14.4 % (11.6-14.8) Platelet Count 472 K/UL (150-450) H Mean Platelet Volume 5.3 FL (6.5-10.1) L Neutrophils (%) (Auto) 69.6 % (45.0-75.0) Lymphocytes (%) (Auto) 17.5 % (20.0-45.0) L Monocytes (%) (Auto) 6.3 % (1.0-10.0) Eosinophils (%) (Auto) 6.2 % (0.0-3.0) H Basophils (%) (Auto) 0.4 % (0.0-2.0) Sodium Level 142 MMOL/L (136-145) Potassium Level 3.7 MMOL/L (3.5-5.1) Chloride Level 112 MMOL/L (98-107) H Carbon Dioxide Level 26 MMOL/L (21-32) Anion Gap 4 mmol/L (5-15) L Blood Urea Nitrogen 11 mg/dL (7-18) Creatinine 0.7 MG/DL (0.55-1.30) Estimat Glomerular Filtration Rate > 60 mL/min (>60) Glucose Level 114 MG/DL (74-106) H Calcium Level 7.9 MG/DL (8.5-10.1) L Phosphorus Level 2.1 MG/DL (2.5-4.9) L Magnesium Level 1.7 MG/DL (1.8-2.4) L Total Bilirubin 0.2 MG/DL (0.2-1.0) Aspartate Amino Transf (AST/SGOT) 15 U/L (15-37) Alanine Aminotransferase (ALT/SGPT) 9 U/L (12-78) L Alkaline Phosphatase 131 U/L (46-116) H Total Protein 6.3 G/DL (6.4-8.2) L Albumin 1.1 G/DL (3.4-5.0) L Globulin 5.2 g/dL Albumin/Globulin Ratio 0.2 (1.0-2.7) L Current Medications Medications (Trade) Dose Ordered Sig/Tameka Route PRN Reason Start Time Stop Time Status Last Admin Dose Admin Acetaminophen (Tylenol) 650 mg Q4H PRN ORAL fever 05/02/18 22:15 06/01/18 22:14 05/11/18 13:28 Al Hydroxide/Mg Hydroxide (Mylanta II) 30 ml Q6H PRN ORAL dyspepsia 05/02/18 22:15 06/01/18 22:14 Amiodarone HCl (Cordarone) 200 mg DAILY GT 05/03/18 09:00 06/02/18 08:59 05/11/18 09:40 Carvedilol (Coreg) 6.25 mg EVERY 12 HOURS GT 05/03/18 21:00 06/02/18 08:59 05/11/18 09:41 Daptomycin 200 mg/ Sodium Chloride 55 ml @ 100 mls/hr Q24H IV 05/06/18 21:00 6/27/18 20:59 05/10/18 20:36 Dextrose (Dextrose 50%) STAT PRN IV Hypoglycemia 05/06/18 15:15 06/05/18 15:14 Dextrose (Dextrose 50%) STAT PRN IV Hypoglycemia 05/06/18 15:15 06/05/18 15:14 Diphenhydramine HCl (Benadryl) 25 mg Q6H PRN ORAL Itching/Pruritis 05/02/18 22:15 06/01/18 22:14 Levetiracetam (Keppra) 500 mg Q12HR GT 05/03/18 09:00 06/02/18 08:59 05/11/18 09:40 Nitroglycerin (Ntg) 0.4 mg Q5M X 3 DOSES PRN SL Prn Chest Pain 05/02/18 22:15 06/01/18 22:14 Ondansetron HCl (Zofran) 4 mg Q6H PRN IVP Nausea & Vomiting 05/02/18 22:15 06/01/18 22:14 Piperacillin Sod/ Tazobactam Sod 3.375 gm/Dextrose 110 ml @ 27.5 mls/hr Q8HR@0100,0900,1700 IVPB 05/06/18 17:00 05/13/18 16:59 05/11/18 09:44 Polyethylene Glycol (Miralax) 17 gm HSPRN PRN ORAL Constipation 05/02/18 22:15 06/01/18 22:14 Potassium Phosphate 30 mm/ Sodium Chloride 285 ml @ 47.5 mls/hr ONCE ONCE IV 05/11/18 11:00 05/11/18 16:59 05/11/18 13:09 Radha Saini M.D. May 11, 2018 16:34
--- NOTE | 2018-05-11 18:53 | Internal Med Progress Note ---
Subjective Date of Service: May 11, 2018 Physician Name SolisAaron Attending Physician Roland Box MD Current Medications Medications (Trade) Dose Ordered Sig/Tameka Route PRN Reason Start Time Stop Time Status Last Admin Dose Admin Acetaminophen (Tylenol) 650 mg Q4H PRN ORAL fever 05/02/18 22:15 06/01/18 22:14 05/11/18 13:28 Al Hydroxide/Mg Hydroxide (Mylanta II) 30 ml Q6H PRN ORAL dyspepsia 05/02/18 22:15 06/01/18 22:14 Amiodarone HCl (Cordarone) 200 mg DAILY GT 05/03/18 09:00 06/02/18 08:59 05/11/18 09:40 Carvedilol (Coreg) 6.25 mg EVERY 12 HOURS GT 05/03/18 21:00 06/02/18 08:59 05/11/18 09:41 Daptomycin 200 mg/ Sodium Chloride 55 ml @ 100 mls/hr Q24H IV 05/06/18 21:00 05/13/18 20:59 05/10/18 20:36 Dextrose (Dextrose 50%) STAT PRN IV Hypoglycemia 05/06/18 15:15 06/05/18 15:14 Dextrose (Dextrose 50%) STAT PRN IV Hypoglycemia 05/06/18 15:15 06/05/18 15:14 Diphenhydramine HCl (Benadryl) 25 mg Q6H PRN ORAL Itching/Pruritis 05/02/18 22:15 06/01/18 22:14 Levetiracetam (Keppra) 500 mg Q12HR GT 05/03/18 09:00 06/02/18 08:59 05/11/18 09:40 Nitroglycerin (Ntg) 0.4 mg Q5M X 3 DOSES PRN SL Prn Chest Pain 05/02/18 22:15 06/01/18 22:14 Ondansetron HCl (Zofran) 4 mg Q6H PRN IVP Nausea & Vomiting 05/02/18 22:15 06/01/18 22:14 Piperacillin Sod/ Tazobactam Sod 3.375 gm/Dextrose 110 ml @ 27.5 mls/hr Q8HR@0100,0900,1700 IVPB 05/06/18 17:00 05/13/18 16:59 05/11/18 16:55 Polyethylene Glycol (Miralax) 17 gm HSPRN PRN ORAL Constipation 05/02/18 22:15 06/01/18 22:14 Allergies: Coded Allergies: No Known Allergies (Unverified , 03/07/17) ROS Limited/Unobtainable: Yes Subjective 58 YO tracheostomy dependent M admitted with infected gastrostomy tube site. Cover for Int Med-Dr Box. [facility]. Vent dependent on trach Objective Last Vital Signs Date Time Temp Pulse Resp B/P (MAP) Pulse Ox O2 Delivery O2 Flow Rate FiO2 05/11/18 16:55 100 17 30 05/11/18 16:00 98.9 119/79 100 Mechanical Ventilator 98.9 Laboratory Tests Test 05/11/18 04:33 White Blood Count 11.8 K/UL (4.8-10.8) H Red Blood Count 3.01 M/UL (4.70-6.10) L Hemoglobin 8.4 G/DL (14.2-18.0) L Hematocrit 26.6 % (42.0-52.0) L Mean Corpuscular Volume 88 FL (80-99) Mean Corpuscular Hemoglobin 28.1 PG (27.0-31.0) Mean Corpuscular Hemoglobin Concent 31.8 G/DL (32.0-36.0) L Red Cell Distribution Width 14.4 % (11.6-14.8) Platelet Count 472 K/UL (150-450) H Mean Platelet Volume 5.3 FL (6.5-10.1) L Neutrophils (%) (Auto) 69.6 % (45.0-75.0) Lymphocytes (%) (Auto) 17.5 % (20.0-45.0) L Monocytes (%) (Auto) 6.3 % (1.0-10.0) Eosinophils (%) (Auto) 6.2 % (0.0-3.0) H Basophils (%) (Auto) 0.4 % (0.0-2.0) Sodium Level 142 MMOL/L (136-145) Potassium Level 3.7 MMOL/L (3.5-5.1) Chloride Level 112 MMOL/L (98-107) H Carbon Dioxide Level 26 MMOL/L (21-32) Anion Gap 4 mmol/L (5-15) L Blood Urea Nitrogen 11 mg/dL (7-18) Creatinine 0.7 MG/DL (0.55-1.30) Estimat Glomerular Filtration Rate > 60 mL/min (>60) Glucose Level 114 MG/DL (74-106) H Calcium Level 7.9 MG/DL (8.5-10.1) L Phosphorus Level 2.1 MG/DL (2.5-4.9) L Magnesium Level 1.7 MG/DL (1.8-2.4) L Total Bilirubin 0.2 MG/DL (0.2-1.0) Aspartate Amino Transf (AST/SGOT) 15 U/L (15-37) Alanine Aminotransferase (ALT/SGPT) 9 U/L (12-78) L Alkaline Phosphatase 131 U/L (46-116) H Total Protein 6.3 G/DL (6.4-8.2) L Albumin 1.1 G/DL (3.4-5.0) L Globulin 5.2 g/dL Albumin/Globulin Ratio 0.2 (1.0-2.7) L Intake and Output 05/10/18 05/11/18 19:00 07:00 Intake Total 485 ml 730.0 ml Output Total 400 ml Balance 485 ml 330.0 ml Intake Free Water 65 ml 100 ml IV Total 210.0 ml Tube Feeding 420 ml 420 ml Output Urine Total 400 ml # Bowel Movements 1 Objective General Appearance: alert, mild distress, thin EENT: PERRL/EOMI, normal ENT inspection Neck: non-tender, normal alignment, supple Cardiovascular: normal peripheral pulses, normal rate, regular rhythm, no gallop/murmur, no JVD Respiratory/Chest: Trach; mech vent; respiratory distress, crackles/rales, rhonchi - bilaterally, expiratory wheezing Abdomen: normal bowel sounds, non tender, soft, no organomegaly, no mass Extremities: normal inspection 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 pneumo, rovidencia, and enterococcus. Continue daptomycin and zosyn per ID (5) Sacral decubitus ulcer, stage IV (6) Tracheostomy care (7) Chronic respiratory failure Assessment & Plan: Vent dep. See pulmonary note. (8) Seizure disorder Assessment & Plan: Continue keppra (9) Atrial fibrillation Assessment & Plan: Continue amiodarone per cardiology (10) CHF (congestive heart failure) Assessment & Plan: See cardiology note. (11) Diabetes mellitus type II, uncontrolled (12) Cerebral vascular disease (13) Feeding by G-tube (14) Hypokalemia Assessment & Plan: replace potassium (15) Anemia Assessment & Plan: S/P Transfusion 1 unit PRBC 05/09/18 Status: not improved Aaron Solis MD May 11, 2018 18:53
[2018-05-11] MEDS ORDERED: NS 275ml ONE (21:35)
[2018-05-11] MEDS ORDERED: NS Irrig 1000ml ONE (21:35)
[2018-05-11] MEDS ORDERED: Tubing IV Secondary IV ONE (21:35)
--- NOTE | 2018-05-12 09:16 | Discharge Summary ---
Discharge Summary Hospital Course Date of Admission May 02, 2018 at 19:45 Date of Discharge May 11, 2018 at 21:36 Admitting Diagnosis G-Tube Erosion, Infection HPI Yamil Wells is a 58 year old male who was admitted on May 02, 2018 at 19:45 for G Tube Erosion,Infection Hospital Course dc summary #[id number] Discharge Medications Continued Medications: Acetaminophen* (Acetaminophen 325MG Tablet*) 325 Mg Tablet 650 MG GT Q4H PRN for TEMP > 101F OR MILD PAIN, TAB Albuterol Sulfate* (Albuterol Sulfate Hhn*) 2.5 Mg/3 Ml Vial.neb 3 ML INH Q3HR PRN for Shortness of Breath, EA (This prescription has been renewed) Amiodarone Hcl (Amiodarone Hcl) 100 Mg Tablet 200 MG GT DAILY, TAB (This prescription has been renewed) Epoetin Rehan (Epogen) 20,000 Unit/2 Ml Vial 94679 UNIT SUBQ 3XW, VIAL (This prescription has been renewed) Heparin Sod (Porcine) (Heparin Sodium*) 5 000/1 Ml Vial 5000 UNITS SUBQ EVERY 12 HOURS, VIAL (This prescription has been renewed) Levetiracetam (Keppra) 100 Mg/1 Ml Solution 500 MG GT Q12HR for 60 Days, #60 CAP Polyethylene Glycol 3350* (Miralax*) 17 Gm Powd.pack 17 GM GT DAILY PRN for Constipation, PACKET Zinc Sulfate (Zinc Sulfate*) 220 Mg Capsule 220 MG GT DAILY, CAP 0 Refills (This prescription has been renewed) Discharge Discharge Disposition Patient was discharged to SNF/Subacute Facility(03) Discharge Instructions Discharge Instructions Special Instructions I have been assigned to complete a D/C Summary on this account. I was not involved in the patient management Chiara Perales NP May 12, 2018 09:16
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
== END 2018-05-11 21:36 | DRG 720 ==
LOC: EDBD 17:19 → EMR 18:41 → EDBEDREQ 18:50 → 2W 19:45 → EDBEDREQ 20:08 → EDBEDREQSVC 20:08 → EDBEDREQ 05-03 00:40
PROC: 5A1955Z Respiratory Ventilation, Greater than 96 Consecutive Hours (ICD-10-PCS; principal; 2018-05-02)
PROC: 0D20XUZ Change Feeding Device in Upper Intestinal Tract, External Approach (ICD-10-PCS; 2018-05-08 08:10)
PROC: 0DHA3UZ Insertion of Feeding Device into Jejunum, Percutaneous Approach (ICD-10-PCS; 2018-05-09)
PROC: 30233N1 Transfusion of Nonautologous Red Blood Cells into Peripheral Vein, Percutaneous Approach (ICD-10-PCS; 2018-05-09)
DX: A41.9 Sepsis, unspecified organism (principal); G93.1 Anoxic brain damage, not elsewhere classified; Z99.11 Dependence on respirator [ventilator] status; L89.154 Pressure ulcer of sacral region, stage 4; E87.2 Acidosis; L89.224 Pressure ulcer of left hip, stage 4; L89.214 Pressure ulcer of right hip, stage 4; J96.10 Chronic respiratory failure, unspecified whether with hypoxia or hypercapnia; Z43.0 Encounter for attention to tracheostomy; L89.324 Pressure ulcer of left buttock, stage 4; L89.314 Pressure ulcer of right buttock, stage 4; K94.22 Gastrostomy infection; I11.0 Hypertensive heart disease with heart failure; K94.23 Gastrostomy malfunction; L03.319 Cellulitis of trunk, unspecified; Z95.810 Presence of automatic (implantable) cardiac defibrillator; K21.9 Gastro-esophageal reflux disease without esophagitis; D47.3 Essential (hemorrhagic) thrombocythemia; G40.909 Epilepsy, unspecified, not intractable, without status epilepticus; I48.91 Unspecified atrial fibrillation; E11.65 Type 2 diabetes mellitus with hyperglycemia; B96.1 Klebsiella pneumoniae [K. pneumoniae] as the cause of diseases classified elsewhere; B95.2 Enterococcus as the cause of diseases classified elsewhere; B96.89 Other specified bacterial agents as the cause of diseases classified elsewhere; I67.9 Cerebrovascular disease, unspecified; D63.8 Anemia in other chronic diseases classified elsewhere
CPT/HCPCS: 36415; 36600; 71045; 74018; 80048; 80053; 81003; 82550; 82553; 82803; 83605; 83735; 83880; 84100; 84484; 85007; 85025; 85610; 85651; 85730; 86140; 86850; 86900; 86901; 86920; 87040; 87070; 87081; 87181; 87205; 87324; 93005; 94002; 94003; 94150; 94640; 94664; 99285; J7620

== ENCOUNTER 2018-05-18 21:03 | Inpatient (IN) | payer OTHER ==
[~2018-05-18] VITALS: Ht 170.2 cm; Wt 49.9 kg
[~2018-05-18 21:03] MED LIST changes: +DUONEB 0.5-3(2.53 ML HHN; +EPOGEN20000 UNI1 SUBQ
[2018-05-18] MEDS ORDERED: Sodium Chloride 500ML 500 ML IV ONE (21:16)
[2018-05-18 22:19] LABS: ANION GAP 6 mmol/L (5-15); BLOOD UREA NITROGEN 27 mg/dL (7-18); CALCIUM 8.3 MG/DL (8.5-10.1); CARBON DIOXIDE 27 MMOL/L (21-32); CHLORIDE 103 MMOL/L (98-107); CREATININE 0.7 MG/DL (0.55-1.30); POTASSIUM 4.3 MMOL/L (3.5-5.1); SODIUM 136 MMOL/L (136-145)
[2018-05-18 22:21] LABS: BASOPHILS % (AUTO) 1.4 % (0.0-2.0); EOSINOPHILS % (AUTO) 5.8 % (0.0-3.0); HEMATOCRIT 30.1 % (42.0-52.0); HEMOGLOBIN 9.5 G/DL (14.2-18.0); LYMPHOCYTES % (AUTO) 33.6 % (20.0-45.0); MEAN CORPUSCULAR VOLUME 87 FL (80-99); MONOCYTES % (AUTO) 6.9 % (1.0-10.0); NEUTROPHILS % (AUTO) 52.2 % (45.0-75.0); PLATELET COUNT 782 K/UL (150-450); RED BLOOD COUNT 3.46 M/UL (4.70-6.10); RED CELL DISTRIBUTION WIDTH 15.6 % (11.6-14.8)
[2018-05-18 22:23] LABS: ALANINE AMINOTRANSFERASE 10 U/L (12-78); ALBUMIN 1.2 G/DL (3.4-5.0); ALBUMIN/GLOBULIN RATIO 0.2 (1.0-2.7); ALKALINE PHOSPHATASE 185 U/L (46-116); ASPARTATE AMINO TRANSFERASE 14 U/L (15-37); BILIRUBIN,TOTAL 0.1 MG/DL (0.2-1.0)
[2018-05-18 22:26] LABS: INR 1.2 (0.9-1.1)
--- NOTE | 2018-05-18 22:30 | Emergency Room Report ---
History of Present Illness General Chief Complaint: Malfunctioning Gastric Tube Source: Medical Record Present Illness HPI 58-year-old male presents ED for evaluation. Patient coming from long-term for malfunctioning J-tube. Nursing staff at facility states G-tube is clogged 1 day. Upon arrival patient showing no signs of distress. No fevers or chills. No nausea or vomiting. Patient has trach and is on ventilator. No other aggravating or relieving factors. Denies any other associated symptoms Allergies: Coded Allergies: No Known Allergies (Unverified , 03/07/17) Patient History Past Medical History: AFib, CVA/TIA, dementia, seizures Past Surgical History: pacemaker - defibrillator, other - trach/gtube Social History: Denies: smoking, alcohol use, drug use Immunizations: UTD Reviewed Nursing Documentation: PMH: Agreed; PSxH: Agreed Nursing Documentation-PMH Past Medical History: No History, Except For Hx Cardiac Problems: Yes - Afib;. rheumatic tricuspid valve disease Hx Hypertension: Yes - Anemia, vtach Hx Pacemaker: Yes - Defibrillator implant left chest Hx Asthma: Yes Hx COPD: Yes - Resp failure, vent dep.. PNA, acidosis, sepsis, proteinuria Hx Cancer: No Hx Gastrointestinal Problems: Yes - GT; Cirrhosis, dysphagia, tracheostomy, GERD, cirrhosis, ascites Hx Neurological Problems: Yes - ENCEPHALOPATHY, muscle weakness, Hx Cerebrovascular Accident: Yes - breakdown of cardiac pulse generator ( battery) Hx Transient Ischemic Attacks: Yes Hx Dementia: Yes Hx Seizures: Yes Hx Aphasia: Yes Review of Systems All Other Systems: negative except mentioned in HPI Physical Exam Vital Signs Date Time Temp Pulse Resp B/P (MAP) Pulse Ox O2 Delivery O2 Flow Rate FiO2 05/18/18 20:59 97.6 99 14 97/66 99 Mechanical Ventilator 4.0 97.5 05/18/18 22:11 40 Sp02 EP Interpretation: reviewed, normal General Appearance: no apparent distress, alert, GCS 15, non-toxic Head: normocephalic Eyes: bilateral eye normal inspection, bilateral eye PERRL ENT: normal ENT inspection Neck: tracheotomy Respiratory: chest non-tender, lungs clear, normal breath sounds, speaking full sentences Cardiovascular #1: regular rate, rhythm, no edema Gastrointestinal: normal bowel sounds, non tender, soft, non-distended, no guarding, no rebound, other - J tube, surrounding area C/d/I Rectal: deferred Genitourinary: no CVA tenderness Musculoskeletal: normal inspection Neurologic: other - nonverbal Psychiatric: other - nonverbal Skin: normal inspection Lymphatic: normal inspection Medical Decision Making Diagnostic Impression: Primary Impression: Malfunction of jejunostomy tube ER Course Hospital Course 58 yo M presents with nonfunctioning J tube Differential Diagnosis - cellulitis, abscess, malfunctioning Gtube, sepsis Clinical course Patient placed on stretcher. After initial history and physical, I ordered labs , EKG, CXR Labs reviewed-no leukocytosis, hemoglobin/hematocrit stable, electrolytes okay EKG - NSR, no acute ishcemic changes interpreted by ok CXR - trach, no acute process J-tube cannot be changed at bedside and will require admission Case discussed with Dr. Box and he agreed to accept the patient to his service for further care and support Diagnosis - malfunction of jejunostomy tube Admitted to SDU in serious condition Labs Test 05/18/18 21:40 White Blood Count 8.0 K/UL (4.8-10.8) Red Blood Count 3.46 M/UL (4.70-6.10) Hemoglobin 9.5 G/DL (14.2-18.0) Hematocrit 30.1 % (42.0-52.0) Mean Corpuscular Volume 87 FL (80-99) Mean Corpuscular Hemoglobin 27.4 PG (27.0-31.0) Mean Corpuscular Hemoglobin Concent 31.6 G/DL (32.0-36.0) Red Cell Distribution Width 15.6 % (11.6-14.8) Platelet Count 782 K/UL (150-450) Mean Platelet Volume 5.3 FL (6.5-10.1) Neutrophils (%) (Auto) 52.2 % (45.0-75.0) Lymphocytes (%) (Auto) 33.6 % (20.0-45.0) Monocytes (%) (Auto) 6.9 % (1.0-10.0) Eosinophils (%) (Auto) 5.8 % (0.0-3.0) Basophils (%) (Auto) 1.4 % (0.0-2.0) Prothrombin Time 12.1 SEC (9.30-11.50) Prothromb Time International Ratio 1.2 (0.9-1.1) Activated Partial Thromboplast Time 34 SEC (23-33) Sodium Level 136 MMOL/L (136-145) Potassium Level 4.3 MMOL/L (3.5-5.1) Chloride Level 103 MMOL/L (98-107) Carbon Dioxide Level 27 MMOL/L (21-32) Anion Gap 6 mmol/L (5-15) Blood Urea Nitrogen 27 mg/dL (7-18) Creatinine 0.7 MG/DL (0.55-1.30) Estimat Glomerular Filtration Rate > 60 mL/min (>60) Glucose Level 75 MG/DL (74-106) Calcium Level 8.3 MG/DL (8.5-10.1) Total Bilirubin 0.1 MG/DL (0.2-1.0) Aspartate Amino Transf (AST/SGOT) 14 U/L (15-37) Alanine Aminotransferase (ALT/SGPT) 10 U/L (12-78) Alkaline Phosphatase 185 U/L (46-116) Total Protein 7.2 G/DL (6.4-8.2) Albumin 1.2 G/DL (3.4-5.0) Globulin 6.0 g/dL Albumin/Globulin Ratio 0.2 (1.0-2.7) EKG Diagnostic Results Rate: normal Rhythm: NSR ST Segments: no acute changes ASA given to the pt in ED: No Rhythm Strip Diag. Results EP Interpretation: yes Rhythm: NSR, no PVC's, no ectopy Chest X-Ray Diagnostic Results Chest X-Ray Diagnostic Results : Chest X-Ray Ordered: Yes # of Views/Limited/Complete: 1 View Indication: Other - preop EP Interpretation: Yes Interpretation: no consolidation, no effusion, no pneumothorax, no acute cardiopulmonary disease, other - trach, defibrillator\ Impression: No acute disease Electronically Signed by: Electronically signed by Juan Wagner MD Last Vital Signs Date Time Temp Pulse Resp B/P (MAP) Pulse Ox O2 Delivery O2 Flow Rate FiO2 05/18/18 22:11 87 15 40 05/18/18 22:11 Mechanical Ventilator 05/18/18 20:59 97.6 97/66 99 4.0 97.5 Status: improved Disposition: ADMITTED INPATIENT Condition: Serious Referrals: Shani Moses MD (PCP) Juan Wagner MD May 18, 2018 22:30
[2018-05-18] MEDS ORDERED: UTI-STAT L3875 MG/31 GT (22:38)
[2018-05-18] MEDS ORDERED: VITAMIN C500 M1 GT (22:38)
[2018-05-18] MEDS ORDERED: PRO-STAT LIQUID30 ML GT (22:38)
[2018-05-18] MEDS ORDERED: ACETAMINOPHEN325 M1 GT (22:38)
[2018-05-18] MEDS ORDERED: NITROSTAT0.4 M1 SL (22:38)
[2018-05-18] MEDS ORDERED: COLACE100 MG GT (22:38)
[2018-05-18] MEDS ORDERED: ZOFRAN 4 MG4 MG/2 ML IM (22:38)
[2018-05-18] MEDS ORDERED: NORCO 5-325 TA1 EACH GT (22:38)
[2018-05-18] MEDS ORDERED: BENADRYL25 MG GT (22:38)
[2018-05-18] MEDS ORDERED: EPOGEN10000 UNIT SUBQ (22:38)
[2018-05-19] VITALS (8 sets, daily range): BP systolic 96–115; BP diastolic 54–77
[2018-05-19] MEDS ORDERED: Norco 5mg/325mg tab GT PRN (03:30)
[2018-05-19] MEDS ORDERED: LORazepam 1mg tab GT PRN (03:30)
[2018-05-19] MEDS ORDERED: Albuterol/Ipratropium 3ml neb HHN PRN (03:30)
[2018-05-19] MEDS ORDERED: Nitroglycerin Subl 0.4mg tab SL PRN (03:30)
[2018-05-19] MEDS: Albuterol/Ipratropium 3ml neb HHN SCH ×3 (07:43→19:34)
[2018-05-19] MEDS ORDERED: Ascorbic Acid 500mg tab GT SCH (09:00)
[2018-05-19] MEDS ORDERED: Multivitamins W/Minerals 15 ML UDC GT SCH (09:00)
[2018-05-19] MEDS ORDERED: Zinc Sulfate 220mg cap GT SCH (09:00)
[2018-05-19] MEDS ORDERED: Amiodarone 200mg tab JT SCH (09:00)
[2018-05-19] MEDS: levETIRAcetam 500mg/5ml Liquid GT SCH ×2 (09:43→20:24)
[2018-05-19] MEDS: Carvedilol 6.25mg Tab JT SCH ×2 (09:44→20:24)
[2018-05-19] MEDS: traMADol 50mg tab JT SCH ×2 (09:44→17:36)
[2018-05-19] MEDS: Heparin 5000 units/ml inj SUBQ SCH ×2 (09:46→20:25)
--- NOTE | 2018-05-19 10:57 | Pulmonolgy Critical Care Note ---
Critical Care - Asmt/Plan Problems: (1) Acute on chronic respiratory failure (2) Malfunction of jejunostomy tube (3) HTN (hypertension) (4) Seizure disorder (5) Anemia (6) EF of 30 (7) AICD (automatic cardioverter/defibrillator) present (8) Tracheostomy care (9) Diabetes mellitus type II, uncontrolled Respiratory: monitor respiratory rate, adjust FIO2, CXR Cardiac: continue to monitor HR/BP Renal: F/U I&O Infectious Disease: check cultures Gastrointestinal: continue feedings/current rate Endocrine: check TSH Neurologic: PRN Ativan, keep patient comfortable Prophylaxis: Protonix Disposition: keep in ICU Notes Reviewed: cardio Discussed with: nurses, consultants, special education case managerhuman resources compliance manager - Objective Last 24 Hour Vital Signs Date Time Temp Pulse Resp B/P (MAP) Pulse Ox O2 Delivery O2 Flow Rate FiO2 05/19/18 09:23 108 18 40 05/19/18 08:00 40 05/19/18 07:46 105 14 100 Mechanical Ventilator 40 05/19/18 07:43 107 05/19/18 07:30 110 15 100 Mechanical Ventilator 40 05/19/18 07:30 40 05/19/18 07:26 105 15 40 05/19/18 05:01 103 19 40 05/19/18 04:00 4.0 40 05/19/18 04:00 98.2 101 16 105/55 97 Mechanical Ventilator 40 98.2 05/19/18 03:48 105 05/19/18 03:03 99 20 Mechanical Ventilator 40 05/19/18 03:03 99 18 40 05/19/18 02:00 97.7 107 18 111/77 97 Mechanical Ventilator 40 97.7 05/19/18 01:00 99 20 Mechanical Ventilator 40 05/19/18 01:00 87 15 40 05/19/18 00:39 97.5 89 18 102/68 99 Mechanical Ventilator 4.0 40 97.5 05/19/18 00:39 97.6 18 97/66 99 Mechanical Ventilator 4.0 40 97.5 05/18/18 22:41 87 15 40 05/18/18 22:41 84 18 Mechanical Ventilator 40 05/18/18 22:11 87 15 40 05/18/18 22:11 87 18 Mechanical Ventilator 40 05/18/18 20:59 97.6 99 14 97/66 99 Mechanical Ventilator 4.0 97.5 Status: awake Condition: critical Neck: full ROM Lungs: clear Heart: HR/BP unstable Abdomen: soft, non-tender Extremities: no C/C/E, edema Decubiti: location Critical Care - Subjective ROS Limited/Unobtainable: Yes EKG Rhythm: Sinus Rhythm FI02: 40 Vent Support Breath Rate: 14 Vent Support Mode: AC Vent Tidal Volume: 600 Sputum Amount: None PEEP: 5.0 PIP: 21 I&O: Intake and Output 05/18/18 05/19/18 19:00 07:00 Intake Total 0 ml Output Total 400 ml Balance -400 ml Intake Oral 0 ml Output Urine Total 400 ml # Bowel Movements 2 Labs: Laboratory Tests Test 05/18/18 21:40 05/19/18 07:01 White Blood Count 8.0 K/UL (4.8-10.8) Red Blood Count 3.46 M/UL (4.70-6.10) L Hemoglobin 9.5 G/DL (14.2-18.0) L Hematocrit 30.1 % (42.0-52.0) L Mean Corpuscular Volume 87 FL (80-99) Mean Corpuscular Hemoglobin 27.4 PG (27.0-31.0) Mean Corpuscular Hemoglobin Concent 31.6 G/DL (32.0-36.0) L Red Cell Distribution Width 15.6 % (11.6-14.8) H Platelet Count 782 K/UL (150-450) H Mean Platelet Volume 5.3 FL (6.5-10.1) L Neutrophils (%) (Auto) 52.2 % (45.0-75.0) Lymphocytes (%) (Auto) 33.6 % (20.0-45.0) Monocytes (%) (Auto) 6.9 % (1.0-10.0) Eosinophils (%) (Auto) 5.8 % (0.0-3.0) H Basophils (%) (Auto) 1.4 % (0.0-2.0) Prothrombin Time 12.1 SEC (9.30-11.50) H Prothromb Time International Ratio 1.2 (0.9-1.1) H Activated Partial Thromboplast Time 34 SEC (23-33) H Sodium Level 136 MMOL/L (136-145) Potassium Level 4.3 MMOL/L (3.5-5.1) Chloride Level 103 MMOL/L (98-107) Carbon Dioxide Level 27 MMOL/L (21-32) Anion Gap 6 mmol/L (5-15) Blood Urea Nitrogen 27 mg/dL (7-18) H Creatinine 0.7 MG/DL (0.55-1.30) Estimat Glomerular Filtration Rate > 60 mL/min (>60) Glucose Level 75 MG/DL (74-106) Calcium Level 8.3 MG/DL (8.5-10.1) L Total Bilirubin 0.1 MG/DL (0.2-1.0) L Aspartate Amino Transf (AST/SGOT) 14 U/L (15-37) L Alanine Aminotransferase (ALT/SGPT) 10 U/L (12-78) L Alkaline Phosphatase 185 U/L (46-116) H Total Protein 7.2 G/DL (6.4-8.2) Albumin 1.2 G/DL (3.4-5.0) L Globulin 6.0 g/dL Albumin/Globulin Ratio 0.2 (1.0-2.7) L Phosphorus Level 3.1 MG/DL (2.5-4.9) Shani Moses MD May 19, 2018 10:57
--- NOTE | 2018-05-19 11:14 | Diagnostic Imaging Report ---
Indication: Cough Comparison: 05/07/2018 A single view chest radiograph was obtained. Findings: Cardiomediastinal appearance is within normal limits for age. Tracheostomy and pacemaker are noted. Pulmonary vascularity is appropriate. The diaphragmatic contour is smooth and costophrenic angles are sharp. No pleural effusions are identified. The bones are unremarkable. Impression: No acute findings
[2018-05-19] MEDS ORDERED: Gastrograffin 30ml ORAL PRN (14:30)
--- NOTE | 2018-05-19 15:03 | General Progress Note ---
Progress Note Progress Note Surgery: patient known to me from prior admissions.. familiar with wounds. plan for wound debridement but was unable to contact family for consent last admission. will attempt to obtain consent again this admission to assist with wound care currently admitted for malfunctioning feeding tube stage IV sacral decubitus ulcer - clean, no signs of active infection, no tracking, down to coccyx, some granulation tissue, no significant fibrinous tissue stage IV left hip decubitus ulcer - clean, no signs of active infection, mild 3 o'clock tracking, some granulation tissue, mild fibrinous tissue stage IV left buttock decubitus ulcer - clean, no signs of active infection, no tracking, some granulation tissue, mild fibrinous tissue stage IV right hip decubitus ulcer - clean, no signs of active infection, no tracking, some granulation tissue, moderate fibrinous tissue stage IV right buttock decubitus ulcer - clean, no signs of active infection, no tracking, some granulation tissue, moderate fibrinous tissue bilateral heel/foot wounds - no signs of active infection. All wounds present upon admission. As for care, for now please was wounds, place dry guaze to wound bed, then cover with foam dressing or ABD 2-3 times per day. thank you for this consultation. will follow with raul. Derek Dong May 19, 2018 15:03
--- NOTE | 2018-05-19 15:08 | GI Initial Consult Note ---
History of Present Illness General Date patient seen: May 19, 2018 Time patient seen: 15:02 Reason for Hospitalization: Malfunctioning Gastric Tube Referring physician: RASHI CONNOR Reason for Consultation: J TUBE MALFUNCTION Present Illness HPI 58-year-old male presents ED for evaluation. Patient coming from shelter for malfunctioning J-tube. Nursing staff at facility states G-tube is clogged 1 day. Upon arrival patient showing no signs of distress. No fevers or chills. No nausea or vomiting. Patient has trach and is on ventilator. No other aggravating or relieving factors. Denies any other associated symptoms GI consulted for malfunctioning Jtube. Per reports, clogged and unable to flush. Patient had recent admission here for GT site cellulitis with skin mitchell 2/2 to gastric acid from leaking GT. The JT was placed instead. The GT was assessed, showed a great improvement in wound healing to his prior episode. NAD with no s/sx of N/V/D. Home Meds Active Scripts Levetiracetam (Keppra) 100 Mg/1 Ml Solution, 500 MG GT Q12HR for 60 Days, #60 CAP Prov:Shani Moses MD 06/02/17 Reported Medications Ondansetron* (ZOFRAN*) 4 Mg/2 Ml Vial, 4 MG IM Q6H PRN for Nausea & Vomiting, VIAL 05/18/18 Ascorbic Acid* (VITAMIN C*) 500 Mg Tablet, 500 MG GT DAILY, #30 TAB 0 Refills 05/18/18 Cran/Vitc/Mannose/Inulin/Brom (UTI-STAT LIQUID) 3,875 Mg/30 Ml Liquid, 3875 MG GT, ML 05/18/18 Acetaminophen* (ACETAMINOPHEN 325MG TABLET*) 325 Mg Tablet, 650 MG GT Q4H PRN for Fever/Headache/Mild Pain, TAB 05/18/18 Amino Acids/Protein Hydrolys (PRO-STAT LIQUID) 30 Ml Liquid.pkt, 30 ML GT THREE TIMES A DAY, ML 05/18/18 Hydrocodone Bit/Acetaminophen 5-325* (NORCO 5-325*) 1 Each Tablet, 1 TAB GT Q4H PRN for For Pain, TAB 0 Refills 05/18/18 Nitroglycerin (NITROSTAT) 0.4 Mg Tab.subl, 0.4 MG SL Q5M X3 DOSES PRN for CHEST PAIN, #25 TAB 0 Refills 05/18/18 Epoetin Rehan (Epogen) 10,000 Unit/1 Ml Vial, 73013 UNIT SUBQ 3XW, VIAL 05/18/18 Docusate Sodium* (COLACE*) 100 Mg Capsule, 100 MG GT DAILY, CAP 05/18/18 Diphenhydramine Hcl* (BENADRYL*) 25 Mg Capsule, 25 MG GT Q6H PRN for Itching, CAP 05/18/18 Ipratropium/Albuterol Sulfate (DuoNeb 0.5-3(2.5)mg/3ml) 3 Ml Ampul.neb, 3 ML HHN Q6HR PRN for Shortness of Breath, EA 05/03/18 Ipratropium/Albuterol Sulfate (DuoNeb 0.5-3(2.5)mg/3ml) 3 Ml Ampul.neb, 3 ML HHN Q3HR PRN for Shortness of Breath, EA 05/03/18 Lorazepam* (ATIVAN*) 0.5 Mg Tablet, 0.5 MG GT Q6HR PRN for For Anxiety, TAB 05/03/18 Cran/Vitc/Mannose/Inulin/Brom (UTI-STAT LIQUID) 3,875 Mg/30 Ml Liquid, 30 ML GT THREE TIMES A DAY, ML 05/02/18 Epoetin Rehan (EPOGEN) 20,000 Unit/2 Ml Vial, 54114 UNIT SUBQ 3XW, VIAL 05/02/18 Carvedilol* (CARVEDILOL*) 6.25 Mg Tablet, 6.25 MG GT EVERY 12 HOURS, TAB 05/02/18 Ondansetron* (ZOFRAN*) 4 Mg Tablet, 4 MG GT Q6H PRN for Nausea & Vomiting, TAB 02/17/18 Zinc Sulfate (ZINC SULFATE*) 220 Mg Capsule, 220 MG GT DAILY, CAP 0 Refills 02/17/18 Acetaminophen* (ACETAMINOPHEN 325MG TABLET*) 325 Mg Tablet, 650 MG GT Q4H PRN for TEMP > 101F OR MILD PAIN, TAB 02/17/18 Amino Acids/Protein Hydrolys (PRO-STAT LIQUID) 30 Ml Liquid.pkt, 30 ML ORAL THREE TIMES A DAY, ML 11/28/17 Docusate Sodium* (DOCUSATE SODIUM*) 100 Mg Capsule, 100 MG GT DAILY, CAP 11/28/17 Albuterol Sulfate* (ALBUTEROL SULFATE HHN*) 2.5 Mg/3 Ml Vial.neb, 3 ML INH Q3HR PRN for Shortness of Breath, EA 11/28/17 Ascorbic Acid* (VITAMIN C*) 500 Mg Tablet, 500 MG GT DAILY, #30 TAB 0 Refills 09/01/17 Tramadol Hcl* (ULTRAM*) 50 Mg Tablet, 50 MG GT DAILY for For Pain, #30 TAB 0 Refills 09/01/17 Multivitamin With Minerals (MULTIVITAMINS WITH MINERALS*) 1 Each Tablet, 1 TAB GT DAILY, TAB 09/01/17 Hydrocodone Bit/Acetaminophen 5-325* (NORCO 5-325 TABLET*) 1 Each Tablet, 1 TAB GT Q4H PRN for Moderate Pain (Pain Scale 4-6) 09/01/17 Polyethylene Glycol 3350* (MIRALAX*) 17 Gm Powd.pack, 17 GM GT DAILY PRN for Constipation, PACKET 09/01/17 Folic Acid* (FOLIC ACID*) 1 Mg Tablet, 1 MG GT DAILY, TAB 06/23/17 Heparin Sod (Porcine) (HEPARIN SODIUM*) 5 000/1 Ml Vial, 5000 UNITS SUBQ EVERY 12 HOURS, VIAL 06/12/17 Omeprazole (OMEPRAZOLE) 40 Mg Capsule.dr, 40 MG GT DAILY, CAP 03/07/17 Amiodarone Hcl (AMIODARONE HCL) 100 Mg Tablet, 200 MG GT DAILY, TAB 03/07/17 Med list reviewed/reconciled: Yes Allergies: Coded Allergies: No Known Allergies (Unverified , 03/07/17) Patient History Limited by: medical condition PMH Narrative Past Medical History: AFib, CVA/TIA, dementia, seizures Past Surgical History: pacemaker - defibrillator, other - trach/gtube Social History: Denies: smoking, alcohol use, drug use Immunizations: UTD Reviewed Nursing Documentation: PMH: Agreed; PSxH: Agreed Nursing Documentation-PM Past Medical History: No History, Except For Hx Cardiac Problems: Yes - Afib;. rheumatic tricuspid valve disease Hx Hypertension: Yes - Anemia, vtach Hx Pacemaker: Yes - Defibrillator implant left chest Hx Asthma: Yes Hx COPD: Yes - Resp failure, vent dep.. PNA, acidosis, sepsis, proteinuria Hx Cancer: No Hx Gastrointestinal Problems: Yes - GT; Cirrhosis, dysphagia, tracheostomy, GERD, cirrhosis, ascites Hx Neurological Problems: Yes - ENCEPHALOPATHY, muscle weakness, Hx Cerebrovascular Accident: Yes - breakdown of cardiac pulse generator ( battery) Hx Transient Ischemic Attacks: Yes Hx Dementia: Yes Hx Seizures: Yes Hx Aphasia: Yes Social History: Denies: smoking, alcohol use, drug use, other Review of Systems All Other Systems: limited Physical Exam Vital Signs Date Time Temp Pulse Resp B/P (MAP) Pulse Ox O2 Delivery O2 Flow Rate FiO2 05/18/18 20:59 97.6 99 14 97/66 99 Mechanical Ventilator 4.0 97.5 05/18/18 22:11 40 Sp02 EP Interpretation: reviewed, normal Labs Laboratory Tests Test 05/18/18 21:40 05/19/18 07:01 White Blood Count 8.0 K/UL (4.8-10.8) Red Blood Count 3.46 M/UL (4.70-6.10) L Hemoglobin 9.5 G/DL (14.2-18.0) L Hematocrit 30.1 % (42.0-52.0) L Mean Corpuscular Volume 87 FL (80-99) Mean Corpuscular Hemoglobin 27.4 PG (27.0-31.0) Mean Corpuscular Hemoglobin Concent 31.6 G/DL (32.0-36.0) L Red Cell Distribution Width 15.6 % (11.6-14.8) H Platelet Count 782 K/UL (150-450) H Mean Platelet Volume 5.3 FL (6.5-10.1) L Neutrophils (%) (Auto) 52.2 % (45.0-75.0) Lymphocytes (%) (Auto) 33.6 % (20.0-45.0) Monocytes (%) (Auto) 6.9 % (1.0-10.0) Eosinophils (%) (Auto) 5.8 % (0.0-3.0) H Basophils (%) (Auto) 1.4 % (0.0-2.0) Prothrombin Time 12.1 SEC (9.30-11.50) H Prothromb Time International Ratio 1.2 (0.9-1.1) H Activated Partial Thromboplast Time 34 SEC (23-33) H Sodium Level 136 MMOL/L (136-145) Potassium Level 4.3 MMOL/L (3.5-5.1) Chloride Level 103 MMOL/L (98-107) Carbon Dioxide Level 27 MMOL/L (21-32) Anion Gap 6 mmol/L (5-15) Blood Urea Nitrogen 27 mg/dL (7-18) H Creatinine 0.7 MG/DL (0.55-1.30) Estimat Glomerular Filtration Rate > 60 mL/min (>60) Glucose Level 75 MG/DL (74-106) Calcium Level 8.3 MG/DL (8.5-10.1) L Total Bilirubin 0.1 MG/DL (0.2-1.0) L Aspartate Amino Transf (AST/SGOT) 14 U/L (15-37) L Alanine Aminotransferase (ALT/SGPT) 10 U/L (12-78) L Alkaline Phosphatase 185 U/L (46-116) H Total Protein 7.2 G/DL (6.4-8.2) Albumin 1.2 G/DL (3.4-5.0) L Globulin 6.0 g/dL Albumin/Globulin Ratio 0.2 (1.0-2.7) L Phosphorus Level 3.1 MG/DL (2.5-4.9) General Appearance: no apparent distress, thin Head: normocephalic EENT: PERRL/EOMI, normal ENT inspection Neck: supple Respiratory: normal breath sounds, no respiratory distress Cardiovascular: normal rate Gastrointestinal: normal inspection, non tender, soft, normal bowel sounds, non -distended Rectal: deferred Genitourinary: deferred Musculoskeletal: normal inspection, back normal Neurologic: alert, responsive Psychiatric: normal inspection, judgement/insight normal, memory normal Skin: normal inspection, normal color, no rash, warm/dry, palpation normal, well hydrated Lymphatic: normal inspection, no adenopathy Current Medications Current Medications Medications (Trade) Dose Ordered Sig/Tameka Route PRN Reason Start Time Stop Time Status Last Admin Dose Admin Acetaminophen (Tylenol) 650 mg Q4H PRN ORAL fever 05/19/18 03:30 06/18/18 03:29 Acetaminophen/ Hydrocodone Bitart ([place] 5/325) 1 tab Q4H PRN GT Moderate Pain (Pain Scale 4-6) 05/19/18 03:30 05/26/18 03:29 Albuterol/ Ipratropium (Albuterol/ Ipratropium) 3 ml Q3HRT PRN HHN Shortness of Breath 05/19/18 03:30 05/24/18 03:29 Albuterol/ Ipratropium (Albuterol/ Ipratropium) 3 ml Q6HRT HHN 05/19/18 07:00 05/24/18 06:59 05/19/18 13:32 Amiodarone HCl (Cordarone) 200 mg DAILY JT 05/19/18 09:00 06/18/18 08:59 Ascorbic Acid (Vitamin C) 500 mg DAILY GT 05/19/18 09:00 06/18/18 08:59 Carvedilol (Coreg) 6.25 mg EVERY 12 HOURS JT 05/19/18 09:00 06/18/18 08:59 Dextrose (Dextrose 50%) 25 ml STAT PRN IV Hypoglycemia 05/19/18 03:30 06/18/18 03:29 Dextrose (Dextrose 50%) 50 ml STAT PRN IV Hypoglycemia 05/19/18 03:30 06/18/18 03:29 Diatrizoate Meglum/ Diatrizoate Sod (Gastrografin) 30 ml ONCE PRN ORAL RADIOLOGY USE 05/19/18 14:30 05/21/18 14:29 Diphenhydramine HCl (Benadryl) 25 mg Q6H PRN ORAL Itching/Pruritis 05/19/18 03:30 06/18/18 03:29 Folic Acid (Folate) 1 mg DAILY JT 05/19/18 09:00 06/18/18 08:59 Heparin Sodium (Porcine) (Heparin 5000 units/ml) 5,000 units EVERY 12 HOURS SUBQ 05/19/18 09:00 06/18/18 08:59 Levetiracetam (Keppra) 500 mg Q12HR GT 05/19/18 09:00 06/18/18 08:59 Lorazepam (Ativan) 0.5 mg EVERY 6 HOURS PRN GT For Anxiety 05/19/18 03:30 05/26/18 03:29 Multivitamins (Multivitamins W/ Minerals 15ml Liquid) 15 ml DAILY GT 05/19/18 09:00 06/18/18 08:59 Nitroglycerin (Ntg) 0.4 mg Q5M PRN SL Prn Chest Pain 05/19/18 03:30 06/18/18 03:29 Ondansetron HCl (Zofran) 4 mg Q6H PRN IVP Nausea & Vomiting 05/19/18 03:30 06/18/18 03:29 Tramadol HCl (Ultram) 50 mg BID JT 05/19/18 09:00 05/26/18 08:59 Zinc Sulfate (Zinc Sulfate) 220 mg DAILY GT 05/19/18 09:00 06/18/18 08:59 GI: Plan Problems: (1) Malfunction of jejunostomy tube (2) Anemia (3) Transaminitis (4) G-tube site cellulitis (5) Gastrostomy tube skin breakdown Plan JT changed with GT 24fr at bedside. CXR + Gastrografin for tube placement GT site/wound care dressing >> WD TID, use no tape. anemia work up OB stool r/o GI bleed monitor H&H, prn transfusions bowel regime ppi fu labs dc planning Discussed with Dr. Alex. Thank you for this patient referral, we will follow. The patient was seen and examined at bedside and all new and available data was reviewed in the patients chart. I agree with the above findings, impression and plan. (Patient seen earlier today. Signature stamp does not reflect patient encounter time.). - MD Shala Braga Anh-Fidencio CLEARING INSPECTOR May 19, 2018 15:08
--- NOTE | 2018-05-19 16:21 | History & Physical ---
History and Physical History & Physicial Dictated for Int Med Dr Box no. [id number]. Aaron Solis MD May 19, 2018 16:20
--- NOTE | 2018-05-19 16:27 | Diagnostic Imaging Report ---
Indication: Gastrostomy check Comparison: None Single view of the abdomen obtained Findings: There is contrast in the stomach. Gastrostomy is projected over the mid stomach lumen in good position. There is no evidence of a leak. IMPRESSION: Unremarkable gastrostomy check
--- NOTE | 2018-05-19 17:45 | History and Physical Report ---
DATE OF ADMISSION: 05/19/2018 CHIEF COMPLAINT: The patient is a 58-year-old male, who presents with a chief complaint of malfunctioning jejunostomy tube. HISTORY OF PRESENT ILLNESS: The patient is a resident of [facility]. According to staff at [facility], the patient's jejunostomy tube has been malfunctioning for one day. They were unable to unclog the J-tube at the [place] [facility]. The patient was transported to [facility] emergency room. The patient is admitted with malfunctioning jejunostomy tube. PAST MEDICAL HISTORY: Significant for, 1. Vent-dependent respiratory failure. 2. Status post tracheostomy. 3. Hypertension. 4. Anoxic brain injury. 5. Automatic internal cardioverter-defibrillator in situ. 6. Seizure disorder. 7. Atrial fibrillation. 8. Stage IV sacral decubitus ulcer. 9. Congestive heart failure. 10. Diabetes mellitus mellitus type 2. 11. History of cerebrovascular disease. 12. Anemia, chronic. PAST SURGICAL HISTORY: Significant for, 1. AICD placement. 2. Jejunostomy tube placement. 3. Tracheostomy. CURRENT MEDICATIONS: 1. Tylenol 650 mg per G-tube q.4 hours p.r.n. 2. Albuterol metered-dose inhaler. 3. DuoNeb nebulized q.3 hours p.r.n. 4. Amiodarone 200 mg per G-tube daily. 5. Vitamin C 500 mg per G-tube daily. 6. Carvedilol 6.25 mg per G-tube twice daily. 7. Benadryl 25 mg per G-tube q.6 hours p.r.n. 8. Epogen 10,000 units subcutaneously three times weekly. 9. Folic acid 1 mg per G-tube daily. 10. Keppra 500 mg per G-tube twice daily. 11. Lorazepam 0.5 mg per G-tube q.6 hours p.r.n. 12. Multivitamin per G-tube daily. 13. Omeprazole 40 mg per G-tube daily. 14. Zofran 4 mg IM q.6 hours p.r.n. 15. Ultram 50 mg per G-tube p.r.n. ALLERGIES: No known drug allergies. SOCIAL HISTORY: The patient is a resident of [facility]. The patient denies tobacco or alcohol use. REVIEW OF SYSTEMS: Unable to assess secondary to the patient's mental status. PHYSICAL EXAMINATION: VITAL SIGNS: Temperature 99, respirations 24, pulse 105, and blood pressure 96/54. GENERAL: The patient is a thin-appearing male, who is vent dependent. HEENT: Eyes, pupils equal and responsive to light and accommodation. Extraocular movements are intact. NECK: Supple without lymphadenopathy. There is a tracheostomy tube present. CHEST: Lungs are clear to auscultation with coarse breath sounds bilaterally. CARDIOVASCULAR: Tachycardic. Regular rhythm. S1, S2 are normal without murmurs, rubs, or gallops. ABDOMEN: soft, nontender, and nondistended with positive bowel sounds. J-tube present. No hepatosplenomegaly. Currently, no rebound or guarding noted. EXTREMITIES: Negative for clubbing, cyanosis, or edema. LABORATORY STUDIES: WBC 8.0, hemoglobin 9.5, hematocrit 30.1, and platelets 782,000. Sodium 136, potassium 4.3, chloride 103, CO2 27, BUN 27, creatinine 0.7, and glucose 75. ASSESSMENT: This is a 58-year-old male. 1. Malfunction jejunostomy tube. 2. Vent-dependent respiratory failure. 3. Tracheostomy in situ. 4. Hypertension. 5. Anoxic brain injury. 6. Automatic implantable cardioverter defibrillator in situ. 7. Seizure disorder. 8. Atrial fibrillation. 9. Stage IV sacral decubitus ulcer. 10. Congestive heart failure. 11. Diabetes type 2. 12. Cerebrovascular disease. TREATMENT: 1. Malfunctioning J-tube. A Gastroenterology consultation has been obtained with Dr. Niraj Alex. We will follow recommendations of Dr. Alex. 2. Vent-dependent respiratory failure. A Pulmonary consultation has been obtained with Dr. Shani Moses. We will follow recommendations of Pulmonary. 3. Tracheostomy in situ. 4. Hypertension. Continue Coreg as above. 5. Anoxic brain injury. 6. Automatic implantable cardioverter defibrillator in situ. 7. Seizure disorder. Continue Keppra as above. 8. Atrial fibrillation. Continue amiodarone as above. 9. Stage IV sacral decubitus ulcer. A Surgery consultation has been obtained with Dr. Dong. 10. Congestive heart failure. 11. Diabetes type 2. A NovoLog sliding scale has been instituted. 12. Cerebrovascular disease. Aaron Solis M.D. DR: PEARL JOB#: [id number] CC:
--- NOTE | 2018-05-20 00:36 | Cardiology Report ---
APPROVED REPORT EKG Measurement Heart [id number] Sinus tachycardia Cannot rule out Anterior infarct, age undetermined Abnormal ECG
--- NOTE | 2018-05-20 14:13 | Consultation ---
History of Present Illness General Date patient seen: May 19, 2018 Time patient seen: 14:30 Chief Complaint: Malfunctioning Gastric Tube Referring physician: RASHI CONNOR Reason for Consultation: J TUBE MALFUNCTION Present Illness HPI Late entry Patient seen 05/19/18 around 2:30p 58 y/o M with hx of Afib, Cardiomyopathy, HTN, Dm2, Rheumatic tricuspid valve disease, MSSA bacteremia 11/2017 (Related to necrotic sacral wound) s/p 4 weeks abx, PSA UTI, Vtach s/p AICD, FTT, PNA, COPD, Dysphagia s/p GT, chronic resp failure s/p trach/vent dependant, GERD, cirrhosis, encephalopathy/Dementia, CVA/ TIA, seizure disorder, chronic stage IV sacral decubitus ulcer, LTAC, recurrent /multiple admissions presents back to ED on 05/18 for clogged JT . Of note patient admitted on 05/03-05/11 with GT leakage with surrounding gastric mitchell to the skin, necrotic GT site and cellulitis, S/p replacement and treated with IV antibiotics. Also, patient admitted 04/18-04/23 for fever and MDR PNA; treated with Bactrim, IV Amikacin, INH colistin and Meropenem. Also admitted here from 02/16-02/26 due to weakness, worsening sacral decubitus wound w/ purulent discharge. Treated with 14 days of Meropenem and 7 days of IV Vancomycin . Allergies: Coded Allergies: No Known Allergies (Unverified , 03/07/17) Medication History Scheduled Amino Acids/Protein Hydrolys (Pro-Stat Liquid), 30 ML ORAL THREE TIMES A DAY, ( Reported) Amino Acids/Protein Hydrolys (Pro-Stat Liquid), 30 ML GT THREE TIMES A DAY, ( Reported) Amiodarone Hcl (Amiodarone Hcl), 200 MG GT DAILY, (Reported) Ascorbic Acid* (Vitamin C*), 500 MG GT DAILY, (Reported) Ascorbic Acid* (Vitamin C*), 500 MG GT DAILY, (Reported) Carvedilol* (Carvedilol*), 6.25 MG GT EVERY 12 HOURS, (Reported) Cran/Vitc/Mannose/Inulin/Brom (Uti-Stat Liquid), 30 ML GT THREE TIMES A DAY, ( Reported) Docusate Sodium* (Docusate Sodium*), 100 MG GT DAILY, (Reported) Docusate Sodium* (Colace*), 100 MG GT DAILY, (Reported) Epoetin Rehan (Epogen), 10,000 UNIT SUBQ 3XW, (Reported) Epoetin Rehan (Epogen), 10,000 UNIT SUBQ 3XW, (Reported) Folic Acid* (Folic Acid*), 1 MG GT DAILY, (Reported) Heparin Sod (Porcine) (Heparin Sodium*), 5,000 UNITS SUBQ EVERY 12 HOURS, ( Reported) Levetiracetam (Keppra), 500 MG GT Q12HR Multivitamin With Minerals (Multivitamins With Minerals*), 1 TAB GT DAILY, ( Reported) Omeprazole (Omeprazole), 40 MG GT DAILY, (Reported) Tramadol Hcl* (Ultram*), 50 MG GT DAILY, (Reported) Zinc Sulfate (Zinc Sulfate*), 220 MG GT DAILY, (Reported) Scheduled PRN Acetaminophen* (Acetaminophen 325MG Tablet*), 650 MG GT Q4H PRN for TEMP > 101F OR MILD PAIN, (Reported) Acetaminophen* (Acetaminophen 325MG Tablet*), 650 MG GT Q4H PRN for Fever/ Headache/Mild Pain, (Reported) Albuterol Sulfate* (Albuterol Sulfate Hhn*), 3 ML INH Q3HR PRN for Shortness of Breath, (Reported) Diphenhydramine Hcl* (Benadryl*), 25 MG GT Q6H PRN for Itching, (Reported) Hydrocodone Bit/Acetaminophen 5-325* ([place] 5-325 Tablet*), 1 TAB GT Q4H PRN for Moderate Pain (Pain Scale 4-6), (Reported) Hydrocodone Bit/Acetaminophen 5-325* ([place] 5-325*), 1 TAB GT Q4H PRN for For Pain, (Reported) Ipratropium/Albuterol Sulfate (DuoNeb 0.5-3(2.5)mg/3ml), 3 ML HHN Q3HR PRN for Shortness of Breath, (Reported) Ipratropium/Albuterol Sulfate (DuoNeb 0.5-3(2.5)mg/3ml), 3 ML HHN Q6HR PRN for Shortness of Breath, (Reported) Lorazepam* (Ativan*), 0.5 MG GT Q6HR PRN for For Anxiety, (Reported) Nitroglycerin (Nitrostat), 0.4 MG SL Q5M X3 DOSES PRN for CHEST PAIN, (Reported) Ondansetron* (Zofran*), 4 MG GT Q6H PRN for Nausea & Vomiting, (Reported) Ondansetron* (Zofran*), 4 MG IM Q6H PRN for Nausea & Vomiting, (Reported) Polyethylene Glycol 3350* (Miralax*), 17 GM GT DAILY PRN for Constipation, ( Reported) Miscellaneous Medications Cran/Vitc/Mannose/Inulin/Brom (Uti-Stat Liquid), 3,875 MG GT, (Reported) Patient History Healthcare decision maker Resuscitation status Full Code Advanced Directive on File No Patient History Narrative Pmhx: as above Shx: reviewed Fhx: non contributory Physical Exam Physical Exam Narrative GENERAL: The patient is a thin-appearing male, who is vent dependent. HEENT: Eyes, pupils equal and responsive to light and accommodation. Extraocular movements are intact. NECK: Supple without lymphadenopathy. There is a tracheostomy tube present. CHEST: Lungs are clear to auscultation with coarse breath sounds bilaterally. CARDIOVASCULAR: Tachycardic. Regular rhythm. S1, S2 are normal without murmurs, rubs, or gallops. ABDOMEN: soft, nontender, and nondistended with positive bowel sounds. J-tube present. Arrea sorrounding prior GT site with superficial ulceration and healing, no signs of cellulitis. No hepatosplenomegaly. Currently, no rebound or guarding noted. EXTREMITIES: Negative for clubbing, cyanosis, or edema. Last 24 Hour Vital Signs Date Time Temp Pulse Resp B/P (MAP) Pulse Ox O2 Delivery O2 Flow Rate FiO2 05/19/18 20:24 98.3 05/19/18 20:24 110 109/55 05/19/18 20:00 98.3 103 17 109/55 100 Mechanical Ventilator 40 98.3 05/19/18 20:00 40 05/19/18 20:00 110 05/19/18 19:44 110 16 100 Mechanical Ventilator 40 05/19/18 19:38 40 05/19/18 19:34 110 20 100 Mechanical Ventilator 40 05/19/18 18:47 110 20 40 05/19/18 18:35 98.3 05/19/18 17:36 98.3 05/19/18 17:11 111 18 40 05/19/18 16:00 40 05/19/18 16:00 98.3 114 17 115/55 100 Mechanical Ventilator 40 98.3 05/19/18 15:48 108 05/19/18 15:06 104 18 40 Intake and Output 05/19/18 05/20/18 19:00 07:00 Intake Total 30 ml Output Total 600 ml Balance -570 ml Free Water 30 ml Output Urine Total 600 ml # Bowel Movements 2 1 Height (Feet): 5 Height (Inches): 7.00 Weight (Pounds): 110 Assessment/Plan Assessment/Plan Abx: None Assessment: JT malfunction Afebrile, no leukocytosis Recent GT site cellulitis; resolved, s/p Rx; no signs of cellulitis currently -wound cx KPC/MDR K. pna, MDR P. 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 stuartti (colonizer) 02/2018 WndC x: MDR Providencia (+ skin colonizer ) Bone scan limited for eval of osteomyelitis. ( due to contracted Ext. ) -s/p 2 weeks of treatment 02/2018 -L hip necrotic/unstagelable decubitus ulcer SP Debridement 11/29 ; Wnd Cx : ACB and Kleb and Strp GrG , MRSA REcent Sepsis 2ry to HCAP, MDR 04/2018, s/p Rx -sp cx S. maltophilia (S bactrim, levaquin), MDR PsA (S Amikacin, Genta) Hx of MSSA bacteremia 11/2017 2ry to infected sacral wound ( SP 4 wks AB rx ) Hx of Pseudomonas urinary tract infection. hx of SCx: MDR-PSA ( colonizer ) Ch transaminitis /cirrhosis Hep C Ab + VDRF Status post trach and percutaneous endoscopic gastrostomy. Dementia Seizure disorder. History of pacemaker placement/AICD -hx of Vtach. Hypertension. COPD. Diabetes. Afib Cardiomyopathy Rheumatic tricuspid valve disease FTT GERD CVA/TIA LTAC resident NKDA FUll code Plan: -Continue to monitor off abx -05/12 SP Daptomycin and Zosyn #6 -05/06 SP Cefepime and Flagyl #4, IV Vanco #4 -04/29 SPIV Bactrim 5mg/kg q8hr #10 (S.maltophilia PNA), Meropenem #11, IV Amikacin and INH colistin #9 (MDR PsA) -/ SP IV Vanco and Zosyn #4 -03/04 SP Meropenem #14 -/ SP IV Vanco #7 -02/20 SP vancomycin and Zosyn d#3 -/ SP IV Vancomycin #28 -12/16 SP Meropenem #14 -// SP IV Zosyn d# 3 -Monitor CBC/BMP, temperatures -wound care -GI f/u Thank you for this consultation. Will continue to follow along with you. Discussed with GI team. Radha Saini M.D. May 20, 2018 14:13
--- NOTE | 2018-05-21 09:59 | Discharge Summary ---
Discharge Summary Discharge Summary _ DATE OF ADMISSION: 05/18/2018 DATE OF DISCHARGE: 05/19/2018 REASON FOR ADMISSION: 68 years old male with past medical history significant for ventilator- dependent respiratory failure, tracheostomy status, encephalopathy, seizure disorder, history of CVA, multiply decubiti , AICD, rheumatic heart disease, cardiomyopathy , diabetes mellitus, dysphagia J-tube, [facility] for [facility] of malfunctioning J-tube. According to the nursing staff ,J -tube was clogged for one day. Laboratory workup revealed anemia with hemoglobin 9.5 hematocrit 30.1 No leukocytosis, no fever. No signs of respiratory distress on current ventilator settings. Chest x-ray revealed no acute cardiopulmonary pathology Patient was admitted for further management with diagnosis of malfunctioning jejunostomy tube, anemia, multiply decubitus present on admission, chronic respiratory failure, with tracheostomy , cardiomyopathy. CONSULTANTS: pulmonary Dr. Moses [facility]: Patient admitted to [facility]. GI consult was requested. J-tube was changed with G-tube 24 Welsh at the bedside. Placement of G-tube was confirmed by x-ray with Gastrografin. G-tube site care provided as recommended by GI specialist without use of tape. Tube feeding restarted. Strict aspiration /reflux precautions were maintained. Patient was able to tolerate tube feeding. Bowel regimen instituted Patient was continued on PPI. Seizure precaution maintained. Keppra continued. No evidence of seizure activity while in the hospital. Home medications were resumed , including amiodarone and beta carmenza . Surgeon seen the patient for multiply decubitus ulcers present on admission. Wound care provided as per surgeon's recommendation. Plan for surgical wound debridement was pending due to the consent issues. No evidence of acute infection. Patient afebrile, no leukocytosis . DVT prophylaxis provided Pain management addressed. Supportive care provided. Bowel regimen instituted. Patient was stable for discharge back to [facility] facility for continuation of care . Due to the rapid and unexpected improvement in patient's condition the patient was discharged in one day. FINAL DIAGNOSES: Malfunctioning jejunostomy tube, s/p replacement Multiply decubitus ulcers, present on admission Ventilator dependent chronic respiratory failure Tracheostomy status Anemia Seizure disorder AICD Cardiomyopathy DISCHARGE MEDICATIONS: See Medication Reconciliation list. DISCHARGE INSTRUCTIONS: Patient was [facility] to [facility]. Follow-up with general sales manager and internal medicine doctor at the facility. I have been assigned to dictate discharge summary for this account. I was not involved in the patient's management. Chiara Perales NP May 21, 2018 09:59
== END 2018-05-19 20:50 | DRG 252 ==
LOC: EDBD 21:03 → EMR 22:19 → EDBEDREQ 22:21 → 2W 23:42 → EDBEDREQSVC 05-19 00:24 → EDBEDREQ 05-19 00:31
PROC: 5A1935Z Respiratory Ventilation, Less than 24 Consecutive Hours (ICD-10-PCS; principal; 2018-05-18)
DX: K94.13 Enterostomy malfunction (principal); Z99.11 Dependence on respirator [ventilator] status; G93.1 Anoxic brain damage, not elsewhere classified; J96.10 Chronic respiratory failure, unspecified whether with hypoxia or hypercapnia; L89.154 Pressure ulcer of sacral region, stage 4; I11.0 Hypertensive heart disease with heart failure; L89.214 Pressure ulcer of right hip, stage 4; L89.324 Pressure ulcer of left buttock, stage 4; I50.9 Heart failure, unspecified; Z93.0 Tracheostomy status; I42.9 Cardiomyopathy, unspecified; E11.65 Type 2 diabetes mellitus with hyperglycemia; G40.909 Epilepsy, unspecified, not intractable, without status epilepticus; I48.91 Unspecified atrial fibrillation; L89.224 Pressure ulcer of left hip, stage 4; L89.314 Pressure ulcer of right buttock, stage 4; R13.10 Dysphagia, unspecified; L03.311 Cellulitis of abdominal wall; D64.9 Anemia, unspecified; K74.60 Unspecified cirrhosis of liver; R74.0 Nonspecific elevation of levels of transaminase and lactic acid dehydrogenase [LDH]; K94.22 Gastrostomy infection; Z95.810 Presence of automatic (implantable) cardiac defibrillator; Y83.3 Surgical operation with formation of external stoma as the cause of abnormal reaction of the patient, or of later complication, without mention of misadventure at the time of the procedure; Y73.3 Surgical instruments, materials and gastroenterology and urology devices (including sutures) associated with adverse incidents; Y92.129 Unspecified place in nursing home as the place of occurrence of the external cause
CPT/HCPCS: 36415; 71045; 74018; 80053; 84100; 85025; 85610; 85730; 86850; 86900; 86901; 87070; 87081; 87181; 87205; 87324; 93005; 94002; 94003; 94640; 94664; 99285; J7620

== ENCOUNTER 2018-06-11 14:22 | Inpatient (IN) | payer OTHER ==
[2018-06-11] VITALS (14 sets, daily range): BP systolic 77–113; BP diastolic 48–73
[~2018-06-11] VITALS: Ht 170.2 cm; Wt 53.1 kg
[~2018-06-11 14:22] MED LIST changes: +BENADRYL25 MG GT; +COLACE100 MG GT; +EPOGEN10000 UNIT SUBQ; +NITROSTAT0.4 M1 SL; +NORCO 5-325 TA1 EACH GT; +PRO-STAT LIQUID30 ML GT
[2018-06-11] MEDS ORDERED: NS 1000ml 1,400 ML IVLG ONE (14:30)
--- NOTE | 2018-06-11 14:46 | Emergency Room Report ---
History of Present Illness General Chief Complaint: Abnormal Labs Source: Medical Record, EMS Present Illness HPI This [facility]. He is ventilator dependent and PEG tube. He has a history of respiratory failure, cardiomyopathy , COPD, sepsis, CVA, cardiac arrhythmia as, encephalopathy, heart failure. The patient is nonverbal at baseline. History is obtained from the patient's medical record. The patient presents from a [facility] for anemia. Labs done today showed a hemoglobin of 6. There was no report of melena or vomiting. There is no other history available. Allergies: Coded Allergies: No Known Allergies (Unverified , 03/07/17) Patient History Past Medical History: see triage record, old chart reviewed, HTN, VA, CAD, CHF , arrhyth, COPD, pneumonia, GERD, CVA/TIA Past Surgical History: pacemaker, other - TRACH/PEG Social History: Denies: smoking, alcohol use, drug use Reviewed Nursing Documentation: PMH: Agreed; PSxH: Agreed Nursing Documentation-PMH Past Medical History: No History, Except For Hx Cardiac Problems: Yes - Afib;. rheumatic tricuspid valve disease Hx Hypertension: Yes - GERD Hx Pacemaker: Yes - Defibrillator implant left chest Hx Asthma: Yes Hx COPD: Yes Hx Diabetes: Yes - TYPE 2 DYSPHAGIA APHAGIA ANEMIA ELIPEPSY SEPSIS Hx Cancer: No Hx Gastrointestinal Problems: Yes - GT; Cirrhosis, dysphagia, tracheostomy, GERD, cirrhosis, ascites Hx Neurological Problems: Yes - ENCEPHALOPATHY, muscle weakness, Hx Cerebrovascular Accident: Yes Hx Transient Ischemic Attacks: Yes Hx Dementia: Yes Hx Seizures: Yes Hx Aphasia: Yes Review of Systems All Other Systems: limited Physical Exam Vital Signs Date Time Temp Pulse Resp B/P (MAP) Pulse Ox O2 Delivery O2 Flow Rate FiO2 06/11/18 14:16 112 16 136/78 100 Trach Collar 4.0 Sp02 EP Interpretation: reviewed, normal, other - On ventilator General Appearance: no apparent distress, alert, non-toxic Head: normocephalic, atraumatic Eyes: bilateral eye normal inspection, bilateral eye PERRL ENT: no angioedema, other - Oral thrush Neck: normal inspection, tracheotomy - Trach in place Respiratory: chest non-tender, lungs clear, normal breath sounds, no respiratory distress, no retraction, no accessory muscle use Cardiovascular #1: no edema, tachycardia Gastrointestinal: non tender, soft, non-distended, no guarding, no rebound, other - PEG Rectal: deferred Musculoskeletal: non-tender, other - contracted Neurologic: alert, other - Non-verbal (Trach). Unable to fully assess. Non- focal. Skin: well hydrated, other - See RN skin exam Medical Decision Making Diagnostic Impression: Primary Impression: Anemia Additional Impressions: GI bleed Hypernatremia Hypokalemia UTI (urinary tract infection) ER Course This patient has many severe chronic illnesses. The patient is cachectic and contracted. He also has a profound anemia that likely is secondary to an occult GI bleed. The patient did have diarrhea and it was brown in color without blood. Patient also has a questionable opacification in the right lower lobe on chest x-ray. He also has a urinalysis consistent with urinary tract infection. The patient was given broad-spectrum antibiotics, aggressive IV fluids and 2 units of packed red blood cells. This patient is admitted to the ICU for further evaluation and treatment. This patient is critically ill. This patient required complex medical decision- making, aggressive intervention, extensive laboratory workup and monitoring. Critical care time: 40 minutes. Laboratory Tests Test 06/11/18 14:30 06/11/18 14:40 White Blood Count 13.9 K/UL (4.8-10.8) H Red Blood Count 2.66 M/UL (4.70-6.10) L Hemoglobin 6.9 G/DL (14.2-18.0) *L Hematocrit 23.6 % (42.0-52.0) L Mean Corpuscular Volume 89 FL (80-99) Mean Corpuscular Hemoglobin 25.9 PG (27.0-31.0) L Mean Corpuscular Hemoglobin Concent 29.3 G/DL (32.0-36.0) L Red Cell Distribution Width 17.5 % (11.6-14.8) H Platelet Count 657 K/UL (150-450) H Mean Platelet Volume 6.2 FL (6.5-10.1) L Neutrophils (%) (Auto) % (45.0-75.0) Lymphocytes (%) (Auto) % (20.0-45.0) Monocytes (%) (Auto) % (1.0-10.0) Eosinophils (%) (Auto) % (0.0-3.0) Basophils (%) (Auto) % (0.0-2.0) Neutrophils % (Manual) Pending Lymphocytes % (Manual) Pending Platelet Estimate Pending Platelet Morphology Pending Prothrombin Time 11.7 SEC (9.30-11.50) H Prothrombin Time INR 1.1 (0.9-1.1) PTT 26 SEC (23-33) Sodium Level 150 MMOL/L (136-145) H Potassium Level 3.2 MMOL/L (3.5-5.1) L Chloride Level 115 MMOL/L (98-107) H Carbon Dioxide Level 23 MMOL/L (21-32) Anion Gap 12 mmol/L (5-15) Blood Urea Nitrogen 61 mg/dL (7-18) H Creatinine 1.2 MG/DL (0.55-1.30) Estimate Glomerular Filtration Rate > 60 mL/min (>60) Glucose Level 98 MG/DL (74-106) Lactic Acid Level 2.40 mmol/L (0.4-2.0) H Calcium Level 8.5 MG/DL (8.5-10.1) Total Bilirubin 0.2 MG/DL (0.2-1.0) Aspartate Amino Transferase (AST) 28 U/L (15-37) Alanine Aminotransferase (ALT) 35 U/L (12-78) Alkaline Phosphatase 219 U/L (46-116) H Total Creatine Kinase 24 U/L (26-308) L Creatine Kinase MB 1.4 NG/ML (0.0-3.6) Creatine Kinase MB Relative Index 5.8 Troponin I 0.004 ng/mL (0.000-0.056) Total Protein 7.6 G/DL (6.4-8.2) Albumin 1.1 G/DL (3.4-5.0) L Globulin 6.5 g/dL Albumin/Globulin Ratio 0.2 (1.0-2.7) L Urine Color Pale yellow Urine Appearance Slightly cloudy Urine pH 5 (4.5-8.0) Urine Specific Gleason 1.010 (1.005-1.035) Urine Protein 2+ (NEGATIVE) H Urine Glucose (UA) Negative (NEGATIVE) Urine Ketones Negative (NEGATIVE) Urine Occult Blood 5+ (NEGATIVE) H Urine Nitrite Negative (NEGATIVE) Urine Bilirubin Negative (NEGATIVE) Urine Urobilinogen Normal MG/DL (0.0-1.0) Urine Leukocyte Esterase 3+ (NEGATIVE) H Urine RBC 2-4 /HPF (0 - 0) H Urine WBC 15-20 /HPF (0 - 0) H Urine Squamous Epithelial Cells None /LPF (NONE/OCC) Urine Calcium Oxalate Crystals Few /LPF (NONE) Urine Bacteria Moderate /HPF (NONE) H Urine Yeast Moderate /HPF (NONE) H EKG Diagnostic Results Rate: tachycardiac Rhythm: other - S.tachycardia ST Segments: no acute changes Rhythm Strip Diag. Results EP Interpretation: yes Rate: 100's Rhythm: no PVC's, no ectopy, other - S.tachycardia Chest X-Ray Diagnostic Results Chest X-Ray Diagnostic Results : Chest X-Ray Ordered: Yes # of Views/Limited/Complete: 1 View Indication: Other Interpretation: other - ?RLL opacity. Impression: Other - See above Electronically Signed by: Gita Last Vital Signs Date Time Temp Pulse Resp B/P (MAP) Pulse Ox O2 Delivery O2 Flow Rate FiO2 06/11/18 14:16 112 16 136/78 100 Trach Collar 4.0 Disposition: ADMITTED INPATIENT Condition: Critical Referrals: Shani Moses MD (PCP) Christine Ladd DO Jun 11, 2018 14:46
[2018-06-11] MEDS ORDERED: Cefepime HCl 1 GM in D5W 55 ML IVPB ONE (15:00)
[2018-06-11] MEDS ORDERED: Pantoprazole Inj IVP ONE (15:00)
[2018-06-11] MEDS ORDERED: Vancomycin 1 GM in NS 275 ML IVPB ONE (15:00)
[2018-06-11] MEDS ORDERED: Pantoprazole 80 MG in NS 250 ML IV ONE (15:00)
[2018-06-11 15:07] LABS: HEMATOCRIT 23.6 % (42.0-52.0); MEAN CORPUSCULAR VOLUME 89 FL (80-99); PLATELET COUNT 657 K/UL (150-450); RED BLOOD COUNT 2.66 M/UL (4.70-6.10); RED CELL DISTRIBUTION WIDTH 17.5 % (11.6-14.8); WHITE BLOOD COUNT 13.9 K/UL (4.8-10.8)
[2018-06-11 15:11] LABS: APPEARANCE,URINE SLIGHTLY CLOUDY; BILIRUBIN, URINE NEGATIVE (NEGATIVE); COLOR,URINE PALE YELLOW; GLUCOSE, URINE (UA) NEGATIVE (NEGATIVE); KETONES,URINE NEGATIVE (NEGATIVE); LEUKOCYTE ESTERASE ,URINE 3+ (NEGATIVE); NITRITE,URINE NEGATIVE (NEGATIVE); PH,URINE 5 (4.5-8.0); PROTEIN,URINE 2+ (NEGATIVE); UROBILINOGEN,URINE NORMAL MG/DL (0.0-1.0)
[2018-06-11] MEDS ORDERED: PRO-STAT AWC L887 ML GT (15:17)
[2018-06-11 15:22] LABS: ANION GAP 12 mmol/L (5-15); BLOOD UREA NITROGEN 61 mg/dL (7-18); CALCIUM 8.5 MG/DL (8.5-10.1); CARBON DIOXIDE 23 MMOL/L (21-32); CHLORIDE 115 MMOL/L (98-107); CREATININE 1.2 MG/DL (0.55-1.30); POTASSIUM 3.2 MMOL/L (3.5-5.1); SODIUM 150 MMOL/L (136-145)
[2018-06-11 15:28] LABS: HEMOGLOBIN 6.9 G/DL (14.2-18.0)
[2018-06-11 15:36] LABS: ALANINE AMINOTRANSFERASE 35 U/L (12-78); ALBUMIN 1.1 G/DL (3.4-5.0); ALBUMIN/GLOBULIN RATIO 0.2 (1.0-2.7); ALKALINE PHOSPHATASE 219 U/L (46-116); ASPARTATE AMINO TRANSFERASE 28 U/L (15-37); BILIRUBIN,TOTAL 0.2 MG/DL (0.2-1.0); CKMB 1.4 NG/ML (0.0-3.6); CREATINE KINASE 24 U/L (26-308)
[2018-06-11 15:40] LABS: INR 1.1 (0.9-1.1)
--- NOTE | 2018-06-11 17:00 | Diagnostic Imaging Report ---
Indication: Shortness of breath Technique: One view of the chest Comparison: 05/18/2018 Findings: There is suggestion of bronchial wall thickening in the bilateral perihilar regions, not evident previously. What may be a calcified granuloma is seen in the right midlung periphery. Left chest AICD is again demonstrated. No focal airspace consolidation. No effusions. Overall heart size. Tracheostomy again demonstrated Impression: Bilateral perihilar bronchial wall thickening, not evident previously, may indicate bronchitis Negative for infiltrate Other findings as noted
[2018-06-11] MEDS ORDERED: LEVETIRACE100 MG/1 M GT (17:28)
[2018-06-11] MEDS ORDERED: NITROSTAT0.4 M1 SL (17:28)
[2018-06-11] MEDS ORDERED: ATIVAN0.5 MG GT (17:29)
[2018-06-11] MEDS ORDERED: DUONEB 0.5-3(2.53 ML HHN (17:31)
[2018-06-11] MEDS ORDERED: Norco 5mg/325mg tab GT PRN (19:45)
[2018-06-11] MEDS ORDERED: LORazepam 0.5mg tab GT PRN (19:45)
[2018-06-11] MEDS ORDERED: Miralax 17gm pkt GT PRN (19:45)
[2018-06-11] MEDS ORDERED: traMADol 50mg tab GT PRN (19:45)
[2018-06-11] MEDS ORDERED: Albuterol ud Inhalation HHN PRN (19:45)
[2018-06-11] MEDS ORDERED: Albuterol/Ipratropium 3ml neb HHN PRN (19:45)
[2018-06-11] MEDS ORDERED: Potassium Chloride 10 MEQ in NS 110 ML IV ONE (20:00)
[2018-06-11] MEDS: Carvedilol 6.25mg Tab GT SCH (21:00)
--- NOTE | 2018-06-11 21:45 | Pulmonolgy Critical Care Note ---
Critical Care - Asmt/Plan Assessment/Plan: Patient is a 58 year old man referred from a residential facility with a GI bleed. He is chronically ventilator dependent and has a PEG tube. He has a history of respiratory failure, cardiomyopathy, COPD, sepsis, CVA, cardiac arrhythmia on Amiodarone, encephalopathy, heart failure. The patient is nonverbal at baseline. History is obtained from the patient's medical record. The patient presents from a residential facility for anemia. Labs done today showed a hemoglobin of 6. There was no report of melena or vomiting. There is no other history available. Allergies: Coded Allergies: No Known Allergies (Unverified , 03/07/17) Patient History Past Medical History: see triage record, old chart reviewed, HTN, HI, CAD, CHF , arrhyth, COPD, pneumonia, GERD, CVA/TIA Past Surgical History: pacemaker, other - TRACH/PEG Social History: Denies: smoking, alcohol use, drug use Reviewed Nursing Documentation: PMH: Agreed; PSxH: Agreed Nursing Documentation-PMH Past Medical History: No History, Except For Hx Cardiac Problems: Yes - Afib;. rheumatic tricuspid valve disease Hx Hypertension: Yes - GERD Hx Pacemaker: Yes - Defibrillator implant left chest Hx Asthma: Yes Hx COPD: Yes Hx Diabetes: Yes - TYPE 2 DYSPHAGIA APHAGIA ANEMIA ELIPEPSY SEPSIS Hx Cancer: No Hx Gastrointestinal Problems: Yes - GT; Cirrhosis, dysphagia, tracheostomy, GERD, cirrhosis, ascites Hx Neurological Problems: Yes - ENCEPHALOPATHY, muscle weakness, Hx Cerebrovascular Accident: Yes Hx Transient Ischemic Attacks: Yes Hx Dementia: Yes Hx Seizures: Yes Hx Aphasia: Yes Review of Systems All Other Systems: limited Physical Exam Vital Signs Date Time Temp Pulse Resp B/P (MAP) Pulse Ox O2 Delivery O2 Flow Rate FiO2 06/11/18 14:16 112 16 136/78 100 AC 4.0 Sp02 EP Interpretation: reviewed, normal, other - On ventilator General Appearance: no apparent distress, alert, non-toxic Head: normocephalic, atraumatic Eyes: bilateral eye normal inspection, bilateral eye PERRL ENT: no angioedema, other - Oral thrush Neck: normal inspection, tracheotomy - Trach in place Respiratory: chest non-tender, lungs clear, normal breath sounds, no respiratory distress, no retraction, no accessory muscle use Cardiovascular #1: no edema, tachycardia Gastrointestinal: non tender, soft, non-distended, no guarding, no rebound, other - PEG Rectal: deferred Musculoskeletal: non-tender, other - contracted Neurologic: alert, other - Non-verbal (Trach). Unable to fully assess. Non- focal. Skin: well hydrated, other - See RN skin exam Medical Decision Making Diagnostic Impression: Primary Impression: Anemia Additional Impressions: GI bleed Hypernatremia Hypokalemia UTI (urinary tract infection) Assessment/Plan This patient has h/o Respiratory failure, CHF, HTN, HI, CAD, CHF, arrhythmia, COPD, pneumonia, GERD, CVA/TIA. The patient is cachectic and contracted. He also has a profound anemia that likely is secondary to an occult GI bleed. The patient did have diarrhea and it was brown in color without blood. Patient also has a questionable opacification in the right lower lobe on chest x-ray. He also has a urinalysis consistent with urinary tract infection. The patient was given broad-spectrum antibiotics, aggressive IV fluids and 2 units of packed red blood cells. This patient is admitted to the ICU for further evaluation and treatment. This patient is critically ill. This patient required complex medical decision- making, aggressive intervention, extensive laboratory workup and monitoring. Plan: DC Heparin, continue other [employer] meds, hold parameters for Carvedelol and Amiodarone Continue current Ventilator settings ABG SCD.,s IV Protonix gtt Dr Goodson, GI Consult Serial Labs Sputum/Urinary cultures D5 1/2 NS at 75 Zosyn and Vancomycin for Pneumonia/UTI Critical care time: 40 minutes. Laboratory Tests Test 06/11/18 14:30 06/11/18 14:40 White Blood Count 13.9 K/UL (4.8-10.8) H Red Blood Count 2.66 M/UL (4.70-6.10) L Hemoglobin 6.9 G/DL (14.2-18.0) *L Hematocrit 23.6 % (42.0-52.0) L Mean Corpuscular Volume 89 FL (80-99) Mean Corpuscular Hemoglobin 25.9 PG (27.0-31.0) L Mean Corpuscular Hemoglobin Concent 29.3 G/DL (32.0-36.0) L Red Cell Distribution Width 17.5 % (11.6-14.8) H Platelet Count 657 K/UL (150-450) H Mean Platelet Volume 6.2 FL (6.5-10.1) L Neutrophils (%) (Auto) % (45.0-75.0) Lymphocytes (%) (Auto) % (20.0-45.0) Monocytes (%) (Auto) % (1.0-10.0) Eosinophils (%) (Auto) % (0.0-3.0) Basophils (%) (Auto) % (0.0-2.0) Neutrophils % (Manual) Pending Lymphocytes % (Manual) Pending Platelet Estimate Pending Platelet Morphology Pending Prothrombin Time 11.7 SEC (9.30-11.50) H Prothrombin Time INR 1.1 (0.9-1.1) PTT 26 SEC (23-33) Sodium Level 150 MMOL/L (136-145) H Potassium Level 3.2 MMOL/L (3.5-5.1) L Chloride Level 115 MMOL/L (98-107) H Carbon Dioxide Level 23 MMOL/L (21-32) Anion Gap 12 mmol/L (5-15) Blood Urea Nitrogen 61 mg/dL (7-18) H Creatinine 1.2 MG/DL (0.55-1.30) Estimate Glomerular Filtration Rate > 60 mL/min (>60) Glucose Level 98 MG/DL (74-106) Lactic Acid Level 2.40 mmol/L (0.4-2.0) H Calcium Level 8.5 MG/DL (8.5-10.1) Total Bilirubin 0.2 MG/DL (0.2-1.0) Aspartate Amino Transferase (AST) 28 U/L (15-37) Alanine Aminotransferase (ALT) 35 U/L (12-78) Alkaline Phosphatase 219 U/L (46-116) H Total Creatine Kinase 24 U/L (26-308) L Creatine Kinase MB 1.4 NG/ML (0.0-3.6) Creatine Kinase MB Relative Index 5.8 Troponin I 0.004 ng/mL (0.000-0.056) Total Protein 7.6 G/DL (6.4-8.2) Albumin 1.1 G/DL (3.4-5.0) L Globulin 6.5 g/dL Albumin/Globulin Ratio 0.2 (1.0-2.7) L Urine Color Pale yellow Urine Appearance Slightly cloudy Urine pH 5 (4.5-8.0) Urine Specific [place] 1.010 (1.005-1.035) Urine Protein 2+ (NEGATIVE) H Urine Glucose (UA) Negative (NEGATIVE) Urine Ketones Negative (NEGATIVE) Urine Occult Blood 5+ (NEGATIVE) H Urine Nitrite Negative (NEGATIVE) Urine Bilirubin Negative (NEGATIVE) Urine Urobilinogen Normal MG/DL (0.0-1.0) Urine Leukocyte Esterase 3+ (NEGATIVE) H Urine RBC 2-4 /HPF (0 - 0) H Urine WBC 15-20 /HPF (0 - 0) H Urine Squamous Epithelial Cells None /LPF (NONE/OCC) Urine Calcium Oxalate Crystals Few /LPF (NONE) Urine Bacteria Moderate /HPF (NONE) H Urine Yeast Moderate /HPF (NONE) H EKG Diagnostic Results Rate: tachycardiac Rhythm: other - S.tachycardia ST Segments: no acute changes Rhythm Strip Diag. Results EP Interpretation: yes Rate: 100's Rhythm: no PVC's, no ectopy, other - S.tachycardia Chest X-Ray Diagnostic Results Chest X-Ray Diagnostic Results : Chest X-Ray Ordered: Yes # of Views/Limited/Complete: 1 View Indication: Other Interpretation: other - ?RLL opacity. Last Vital Signs Date Time Temp Pulse Resp B/P (MAP) Pulse Ox O2 Delivery O2 Flow Rate FiO2 06/11/18 14:16 112 16 136/78 100 Trach Collar 4.0 Critical Care - Objective Last 24 Hour Vital Signs Date Time Temp Pulse Resp B/P (MAP) Pulse Ox O2 Delivery O2 Flow Rate FiO2 06/11/18 21:20 110 16 40 06/11/18 19:01 107 18 40 06/11/18 18:50 98.6 113 30 103/69 (80) 98.6 06/11/18 18:38 97.9 100 16 101/59 Mechanical Ventilator 40 100 06/11/18 18:15 108 18 113/73 (86) 100 06/11/18 18:15 Mechanical Ventilator 06/11/18 17:37 97.9 98 18 101/59 100 Mechanical Ventilator 40 97.9 06/11/18 17:35 40 06/11/18 17:30 101 16 Mechanical Ventilator 40 06/11/18 17:20 97.9 101 15 101/58 100 Mechanical Ventilator 40 97.9 06/11/18 17:15 98.1 104 15 98.1 06/11/18 16:44 98 23 40 06/11/18 16:30 100 17 106/59 100 40 06/11/18 16:00 103 16 103/57 Mechanical Ventilator 40 06/11/18 15:30 106 17 105/52 Mechanical Ventilator 40 06/11/18 15:00 106 17 106/68 100 Mechanical Ventilator 40 06/11/18 14:30 108 22 40 06/11/18 14:30 108 18 77/48 100 Mechanical Ventilator 40 06/11/18 14:16 112 16 136/78 100 Trach Collar 4.0 Critical Care - Subjective ROS Limited/Unobtainable: Yes Condition: critical IV Access: peripheral FI02: 40 Vent Support Breath Rate: 16 Vent Support Mode: AC Vent Tidal Volume: 600 Sputum Amount: Moderate PEEP: 5.0 PIP: 25 ET-Tube: 8.0 Fausto Tyler MD Jun 11, 2018 21:45
[2018-06-11] MEDS: Pantoprazole 80 MG in NS 250 ML IV SCH (22:01)
[2018-06-11] MEDS: levETIRAcetam 500mg/5ml Liquid GT SCH (22:01)
[2018-06-11] MEDS: D5 1/2NS 1,000 ML IV SCH (22:02)
[2018-06-11] MEDS: Piperacillin/Tazobactam 3.375 GM in NS 110 ML IVPB SCH (23:45)
[2018-06-12] VITALS (17 sets, daily range): BP systolic 97–115; BP diastolic 53–70
[2018-06-12] MEDS ORDERED: Vancomycin 500mg/D5W 110ml IVPB SCH ×2 (03:00)
[2018-06-12 05:37] LABS: BASOPHILS % (AUTO) 0.2 % (0.0-2.0); EOSINOPHILS % (AUTO) 2.7 % (0.0-3.0); HEMATOCRIT 32.6 % (42.0-52.0); HEMOGLOBIN 10.4 G/DL (14.2-18.0); LYMPHOCYTES % (AUTO) 11.3 % (20.0-45.0); MEAN CORPUSCULAR VOLUME 88 FL (80-99); MONOCYTES % (AUTO) 5.8 % (1.0-10.0); PLATELET COUNT 602 K/UL (150-450); RED BLOOD COUNT 3.71 M/UL (4.70-6.10); RED CELL DISTRIBUTION WIDTH 15.6 % (11.6-14.8); WHITE BLOOD COUNT 10.5 K/UL (4.8-10.8)
[2018-06-12 05:42] LABS: ANION GAP 8 mmol/L (5-15); BLOOD UREA NITROGEN 42 mg/dL (7-18); CALCIUM 8.2 MG/DL (8.5-10.1); CARBON DIOXIDE 23 MMOL/L (21-32); CHLORIDE 120 MMOL/L (98-107); POTASSIUM 3.4 MMOL/L (3.5-5.1); SODIUM 151 MMOL/L (136-145)
[2018-06-12] MEDS: Pantoprazole 80 MG in NS 250 ML IV SCH (06:27)
--- NOTE | 2018-06-12 07:28 | General Progress Note ---
Subjective Allergies: Coded Allergies: No Known Allergies (Unverified , 03/07/17) Subjective Patient seen Consult to follow Patient admitted with acute UGIB Patient nonverbal Contact information on face sheet incorrect Called SNF - they have no record of any next of kin for this patient Procedure (EGD) felt to be emergently needed to save life Will proceed based on emergency MD consent Objective Last 24 Hour Vital Signs Date Time Temp Pulse Resp B/P (MAP) Pulse Ox O2 Delivery O2 Flow Rate FiO2 06/12/18 07:00 95 16 105/64 (78) 100 06/12/18 06:00 100 16 109/57 (74) 100 06/12/18 05:10 108 17 28 06/12/18 05:00 106 16 108/60 (76) 100 06/12/18 04:00 119 06/12/18 04:00 113 18 97/61 (73) 100 06/12/18 04:00 28 06/12/18 04:00 Mechanical Ventilator 06/12/18 03:09 110 19 28 06/12/18 03:00 100.7 111 19 108/70 (83) 100 100.7 06/12/18 02:00 109 18 107/61 (76) 100 06/12/18 01:10 107 21 28 06/12/18 01:00 106 18 103/63 (76) 100 06/12/18 00:00 Mechanical Ventilator 06/12/18 00:00 101 18 107/66 (80) 100 06/12/18 00:00 106 06/12/18 00:00 28 06/11/18 23:00 107 17 28 06/11/18 23:00 98.1 106 18 106/64 (78) 100 98.1 06/11/18 22:00 108 17 99/59 (72) 100 06/11/18 21:20 110 16 40 06/11/18 21:00 108 106/64 06/11/18 21:00 109 17 106/73 (84) 100 06/11/18 20:00 109 06/11/18 20:00 Mechanical Ventilator 06/11/18 20:00 109 20 107/67 (80) 100 06/11/18 20:00 40 06/11/18 19:01 107 18 40 06/11/18 19:00 98.1 108 18 106/72 (83) 100 98.1 06/11/18 18:50 98.6 113 30 103/69 (80) 98.6 06/11/18 18:38 97.9 100 16 101/59 Mechanical Ventilator 40 100 06/11/18 18:15 108 18 113/73 (86) 100 06/11/18 18:15 Mechanical Ventilator 06/11/18 17:37 97.9 98 18 101/59 100 Mechanical Ventilator 40 97.9 06/11/18 17:35 40 06/11/18 17:30 101 16 Mechanical Ventilator 40 06/11/18 17:20 97.9 101 15 101/58 100 Mechanical Ventilator 40 97.9 06/11/18 17:15 98.1 104 15 98.1 06/11/18 16:44 98 23 40 06/11/18 16:30 100 17 106/59 100 40 06/11/18 16:00 103 16 103/57 Mechanical Ventilator 40 06/11/18 15:30 106 17 105/52 Mechanical Ventilator 40 06/11/18 15:00 106 17 106/68 100 Mechanical Ventilator 40 06/11/18 14:30 108 22 40 06/11/18 14:30 108 18 77/48 100 Mechanical Ventilator 40 06/11/18 14:16 112 16 136/78 100 Trach Collar 4.0 Intake and Output 06/11/18 06/12/18 19:00 07:00 Intake Total 40 ml 1052.5 ml Output Total 215 ml 325 ml Balance -175 ml 727.5 ml Intake IV Total 40 ml 992.5 ml Other 60 ml Output Urine Total 215 ml 325 ml # Bowel Movements 1 4 Laboratory Tests 06/11/18 14:30: White Blood Count 13.9H, Red Blood Count 2.66L, Hemoglobin 6.9*L, Hematocrit 23.6L, Mean Corpuscular Volume 89, Mean Corpuscular Hemoglobin 25.9L, Mean Corpuscular Hemoglobin Concent 29.3L, Red Cell Distribution Width 17.5H, Platelet Count 657H, Mean Platelet Volume 6.2L, Neutrophils (%) (Auto) , Lymphocytes (%) (Auto) , Monocytes (%) (Auto) , Eosinophils (%) (Auto) , Basophils (%) (Auto) , Differential Total Cells Counted 100, Neutrophils % ( Manual) 77H, Lymphocytes % (Manual) 13L, Monocytes % (Manual) 7, Eosinophils % ( Manual) 1, Basophils % (Manual) 1, Band Neutrophils 1, Platelet Estimate IncreasedH, Platelet Morphology Normal, Polychromasia 1+, Hypochromasia 2+, Anisocytosis 1+, Prothrombin Time 11.7H, Prothromb Time International Ratio 1.1 , Activated Partial Thromboplast Time 26, Sodium Level 150H, Potassium Level 3.2L, Chloride Level 115H, Carbon Dioxide Level 23, Anion Gap 12, Blood Urea Nitrogen 61H, Creatinine 1.2, Estimat Glomerular Filtration Rate > 60, Glucose Level 98, Lactic Acid Level 2.40H, Calcium Level 8.5, Total Bilirubin 0.2, Aspartate Amino Transf (AST/SGOT) 28, Alanine Aminotransferase (ALT/SGPT) 35, Alkaline Phosphatase 219H, Total Creatine Kinase 24L, Creatine Kinase MB 1.4, Creatine Kinase MB Relative Index 5.8, Troponin I 0.004, Total Protein 7.6, Albumin 1.1L, Globulin 6.5, Albumin/Globulin Ratio 0.2L 06/11/18 14:40: Urine Color Pale yellow, Urine Appearance Slightly cloudy, Urine pH 5, Urine Specific [place] 1.010, Urine Protein 2+H, Urine Glucose (UA) Negative, Urine Ketones Negative, Urine Occult Blood 5+H, Urine Nitrite Negative, Urine Bilirubin Negative, Urine Urobilinogen Normal, Urine Leukocyte Esterase 3+H, Urine RBC 2-4H, Urine WBC 15-20H, Urine Squamous Epithelial Cells None, Urine Calcium Oxalate Crystals Few, Urine Bacteria ModerateH, Urine Yeast ModerateH 06/11/18 17:07: Lactic Acid Level 1.90 06/11/18 21:29: Arterial Blood pH 7.416, Arterial Blood Partial Pressure CO2 34.1L, Arterial Blood Partial Pressure O2 151.8H, Arterial Blood HCO3 21.4L, Arterial Blood Oxygen Saturation 98.9H, Arterial Blood Base Excess -2.7, Son Test Positive 06/12/18 04:00: Stool Occult Blood [Pending] 06/12/18 04:57: White Blood Count 10.5, Red Blood Count 3.71L, Hemoglobin 10.4#L, Hematocrit 32.6#L, Mean Corpuscular Volume 88, Mean Corpuscular Hemoglobin 27.9, Mean Corpuscular Hemoglobin Concent 31.8L, Red Cell Distribution Width 15.6H, Platelet Count 602H, Mean Platelet Volume 6.2L, Neutrophils (%) (Auto) 80.0H, Lymphocytes (%) (Auto) 11.3L, Monocytes (%) (Auto) 5.8, Eosinophils (%) (Auto) 2.7, Basophils (%) (Auto) 0.2, Sodium Level 151H, Potassium Level 3.4L, Chloride Level 120H, Carbon Dioxide Level 23, Anion Gap 8, Blood Urea Nitrogen 42H, Creatinine 1.0, Estimat Glomerular Filtration Rate > 60, Glucose Level 79, Lactic Acid Level 1.20, Calcium Level 8.2L Height (Feet): 5 Height (Inches): 7.00 Weight (Pounds): 113 Cleve Goodson MD Jun 12, 2018 07:28
--- NOTE | 2018-06-12 07:29 | Pre-Procedure Note/Attestation ---
Pre-Procedure Note/Attestation Complete Prior to Procedure Planned Procedure: not applicable Procedure Narrative: EGD Indications for Procedure Pre-Operative Diagnosis: GIB Attestation I attest that I was unable to discuss the nature of the procedure; its benefits ; risks and complications; and alternatives (and the risks and benefits of such alternatives), prior to the procedure, with the patient (or the patient's legal labor relations representative). I attest that, if there was a reasonable possibility of needing a blood transfusion, the patient (or the patient's legal labor relations representative) could not be given the [facility] standardized written summary , pursuant to the [employer]ovanni Jw Blood Safety Act ([place] Health and Safety Code # 1645, as amended). I attest that I re-evaluated the patient just prior to the surgery and that there has been no change in the patient's H&P, except as documented below: Cleve Goodson MD Jun 12, 2018 07:29
[2018-06-12] MEDS ORDERED: Lidocaine 1% MPF 10mg/ml 5ml ONE (07:30)
[2018-06-12] MEDS ORDERED: Propofol 200mg/20ml IV ONE (07:30)
--- NOTE | 2018-06-12 07:50 | General Progress Note ---
Subjective Allergies: Coded Allergies: No Known Allergies (Unverified , 03/07/17) Subjective GI CONSULT Dictated ENDOSCOPY: 1/2 x 1 cm shallow non bleeding gastric ulcer - biopsied Recommendations - restart TF - monitor labs - check and Rx HP if (+) on biopsies - PPI - OK to LIGIA from GI standpoint Objective Last 24 Hour Vital Signs Date Time Temp Pulse Resp B/P (MAP) Pulse Ox O2 Delivery O2 Flow Rate FiO2 06/12/18 07:00 95 16 105/64 (78) 100 06/12/18 06:00 100 16 109/57 (74) 100 06/12/18 05:10 108 17 28 06/12/18 05:00 106 16 108/60 (76) 100 06/12/18 04:00 119 06/12/18 04:00 113 18 97/61 (73) 100 06/12/18 04:00 28 06/12/18 04:00 Mechanical Ventilator 06/12/18 03:09 110 19 28 06/12/18 03:00 100.7 111 19 108/70 (83) 100 100.7 06/12/18 02:00 109 18 107/61 (76) 100 06/12/18 01:10 107 21 28 06/12/18 01:00 106 18 103/63 (76) 100 06/12/18 00:00 Mechanical Ventilator 06/12/18 00:00 101 18 107/66 (80) 100 06/12/18 00:00 106 06/12/18 00:00 28 06/11/18 23:00 107 17 28 06/11/18 23:00 98.1 106 18 106/64 (78) 100 98.1 06/11/18 22:00 108 17 99/59 (72) 100 06/11/18 21:20 110 16 40 06/11/18 21:00 108 106/64 06/11/18 21:00 109 17 106/73 (84) 100 06/11/18 20:00 109 06/11/18 20:00 Mechanical Ventilator 06/11/18 20:00 109 20 107/67 (80) 100 06/11/18 20:00 40 06/11/18 19:01 107 18 40 06/11/18 19:00 98.1 108 18 106/72 (83) 100 98.1 06/11/18 18:50 98.6 113 30 103/69 (80) 98.6 06/11/18 18:38 97.9 100 16 101/59 Mechanical Ventilator 40 100 06/11/18 18:15 108 18 113/73 (86) 100 06/11/18 18:15 Mechanical Ventilator 06/11/18 17:37 97.9 98 18 101/59 100 Mechanical Ventilator 40 97.9 06/11/18 17:35 40 06/11/18 17:30 101 16 Mechanical Ventilator 40 06/11/18 17:20 97.9 101 15 101/58 100 Mechanical Ventilator 40 97.9 06/11/18 17:15 98.1 104 15 98.1 06/11/18 16:44 98 23 40 06/11/18 16:30 100 17 106/59 100 40 06/11/18 16:00 103 16 103/57 Mechanical Ventilator 40 06/11/18 15:30 106 17 105/52 Mechanical Ventilator 40 06/11/18 15:00 106 17 106/68 100 Mechanical Ventilator 40 06/11/18 14:30 108 22 40 06/11/18 14:30 108 18 77/48 100 Mechanical Ventilator 40 06/11/18 14:16 112 16 136/78 100 Trach Collar 4.0 Intake and Output 06/11/18 06/12/18 19:00 07:00 Intake Total 40 ml 1152.5 ml Output Total 215 ml 325 ml Balance -175 ml 827.5 ml Intake IV Total 40 ml 1092.5 ml Other 60 ml Output Urine Total 215 ml 325 ml # Bowel Movements 1 4 Laboratory Tests 06/11/18 14:30: White Blood Count 13.9H, Red Blood Count 2.66L, Hemoglobin 6.9*L, Hematocrit 23.6L, Mean Corpuscular Volume 89, Mean Corpuscular Hemoglobin 25.9L, Mean Corpuscular Hemoglobin Concent 29.3L, Red Cell Distribution Width 17.5H, Platelet Count 657H, Mean Platelet Volume 6.2L, Neutrophils (%) (Auto) , Lymphocytes (%) (Auto) , Monocytes (%) (Auto) , Eosinophils (%) (Auto) , Basophils (%) (Auto) , Differential Total Cells Counted 100, Neutrophils % ( Manual) 77H, Lymphocytes % (Manual) 13L, Monocytes % (Manual) 7, Eosinophils % ( Manual) 1, Basophils % (Manual) 1, Band Neutrophils 1, Platelet Estimate IncreasedH, Platelet Morphology Normal, Polychromasia 1+, Hypochromasia 2+, Anisocytosis 1+, Prothrombin Time 11.7H, Prothromb Time International Ratio 1.1 , Activated Partial Thromboplast Time 26, Sodium Level 150H, Potassium Level 3.2L, Chloride Level 115H, Carbon Dioxide Level 23, Anion Gap 12, Blood Urea Nitrogen 61H, Creatinine 1.2, Estimat Glomerular Filtration Rate > 60, Glucose Level 98, Lactic Acid Level 2.40H, Calcium Level 8.5, Total Bilirubin 0.2, Aspartate Amino Transf (AST/SGOT) 28, Alanine Aminotransferase (ALT/SGPT) 35, Alkaline Phosphatase 219H, Total Creatine Kinase 24L, Creatine Kinase MB 1.4, Creatine Kinase MB Relative Index 5.8, Troponin I 0.004, Total Protein 7.6, Albumin 1.1L, Globulin 6.5, Albumin/Globulin Ratio 0.2L 06/11/18 14:40: Urine Color Pale yellow, Urine Appearance Slightly cloudy, Urine pH 5, Urine Specific [place] 1.010, Urine Protein 2+H, Urine Glucose (UA) Negative, Urine Ketones Negative, Urine Occult Blood 5+H, Urine Nitrite Negative, Urine Bilirubin Negative, Urine Urobilinogen Normal, Urine Leukocyte Esterase 3+H, Urine RBC 2-4H, Urine WBC 15-20H, Urine Squamous Epithelial Cells None, Urine Calcium Oxalate Crystals Few, Urine Bacteria ModerateH, Urine Yeast ModerateH 06/11/18 17:07: Lactic Acid Level 1.90 06/11/18 21:29: Arterial Blood pH 7.416, Arterial Blood Partial Pressure CO2 34.1L, Arterial Blood Partial Pressure O2 151.8H, Arterial Blood HCO3 21.4L, Arterial Blood Oxygen Saturation 98.9H, Arterial Blood Base Excess -2.7, Son Test Positive 06/12/18 04:00: Stool Occult Blood [Pending] 06/12/18 04:57: White Blood Count 10.5, Red Blood Count 3.71L, Hemoglobin 10.4#L, Hematocrit 32.6#L, Mean Corpuscular Volume 88, Mean Corpuscular Hemoglobin 27.9, Mean Corpuscular Hemoglobin Concent 31.8L, Red Cell Distribution Width 15.6H, Platelet Count 602H, Mean Platelet Volume 6.2L, Neutrophils (%) (Auto) 80.0H, Lymphocytes (%) (Auto) 11.3L, Monocytes (%) (Auto) 5.8, Eosinophils (%) (Auto) 2.7, Basophils (%) (Auto) 0.2, Sodium Level 151H, Potassium Level 3.4L, Chloride Level 120H, Carbon Dioxide Level 23, Anion Gap 8, Blood Urea Nitrogen 42H, Creatinine 1.0, Estimat Glomerular Filtration Rate > 60, Glucose Level 79, Lactic Acid Level 1.20, Calcium Level 8.2L Height (Feet): 5 Height (Inches): 7.00 Weight (Pounds): 113 Cleve Goodson MD Jun 12, 2018 07:50
[2018-06-12] MEDS ORDERED: DiphenhydrAMINE 50mg/ml Inj IVP PRN ×2 (08:00→16:00)
[2018-06-12] MEDS ORDERED: Atropine Inj 1mg/10ml Syr IV PRN ×2 (08:00→16:00)
[2018-06-12] MEDS ORDERED: fentaNYL 100 mcg/2 mL IV PRN ×2 (08:00→16:00)
[2018-06-12] MEDS ORDERED: Labetalol 5mg/ml 20ml vial IV PRN ×2 (08:00→16:00)
[2018-06-12] MEDS ORDERED: Midazolam 2mg/2ml Inj IVP PRN ×2 (08:00→16:00)
--- NOTE | 2018-06-12 08:39 | Anethesia Preoperative Eval ---
Anesthesia Pre-op PMH/ROS General Date of Evaluation: Jun 12, 2018 Anesthesiologist: brittany ASA Score: ASA 4 Mallampati Score Class I : Soft palate, uvula, fauces, pillars visible Class II: Soft palate, uvula, fauces visible Class III: Soft palate, base of uvula visible Class IV: Only hard plate visible Mallampati Classification: Class II Surgeon: tejas Diagnosis: gi bleed Surgical Procedure: egd Anesthesia History: none Family History: no anesthesia problems Allergies: Coded Allergies: No Known Allergies (Unverified , 03/07/17) Medications: see eMAR Past Medical History Cardiovascular: Reports: HTN, arrhythmia, other - heart failure, cardiomyopathy , pacemaker Pulmonary: Reports: asthma, COPD, other - tracheostomy, ventilator dependent Gastrointestinal/Genitourinary: Reports: ESRD, other - dysphagia, hep c 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: Reports: CVA, TIA, other - encephalopathy, seizure, aphasia, anoxic brain damage PSxH Narrative: g-tube Anesthesia Pre-op Phys. Exam Physician Exam Last Vital Signs Date Time Temp Pulse Resp B/P (MAP) Pulse Ox O2 Delivery O2 Flow Rate FiO2 06/12/18 07:00 95 16 105/64 (78) 100 06/12/18 05:10 28 06/12/18 04:00 Mechanical Ventilator 06/12/18 03:00 100.7 100.7 06/11/18 14:16 4.0 Constitutional: NAD Cardiovascular: RRR Respiratory: CTA Gastrointestinal: S/NT/ND, other - g-tube Airway Exam Mallampati Score: Class II MO: limited Neck: tracheostomy TMD: 2fb ROM: limited Anesthesia Pre-op A/P Labs Hematology Test 06/11/18 14:30 06/12/18 04:57 White Blood Count 13.9 K/UL (4.8-10.8) H 10.5 K/UL (4.8-10.8) Red Blood Count 2.66 M/UL (4.70-6.10) L 3.71 M/UL (4.70-6.10) L Hemoglobin 6.9 G/DL (14.2-18.0) *L 10.4 G/DL (14.2-18.0) #L Hematocrit 23.6 % (42.0-52.0) L 32.6 % (42.0-52.0) #L Mean Corpuscular Volume 89 FL (80-99) 88 FL (80-99) Mean Corpuscular Hemoglobin 25.9 PG (27.0-31.0) L 27.9 PG (27.0-31.0) Mean Corpuscular Hemoglobin Concent 29.3 G/DL (32.0-36.0) L 31.8 G/DL (32.0-36.0) L Red Cell Distribution Width 17.5 % (11.6-14.8) H 15.6 % (11.6-14.8) H Platelet Count 657 K/UL (150-450) H 602 K/UL (150-450) H Mean Platelet Volume 6.2 FL (6.5-10.1) L 6.2 FL (6.5-10.1) L Neutrophils (%) (Auto) % (45.0-75.0) 80.0 % (45.0-75.0) H Lymphocytes (%) (Auto) % (20.0-45.0) 11.3 % (20.0-45.0) L Monocytes (%) (Auto) % (1.0-10.0) 5.8 % (1.0-10.0) Eosinophils (%) (Auto) % (0.0-3.0) 2.7 % (0.0-3.0) Basophils (%) (Auto) % (0.0-2.0) 0.2 % (0.0-2.0) Differential Total Cells Counted 100 Neutrophils % (Manual) 77 % (45-75) H Lymphocytes % (Manual) 13 % (20-45) L Monocytes % (Manual) 7 % (1-10) Eosinophils % (Manual) 1 % (0-3) Basophils % (Manual) 1 % (0-2) Band Neutrophils 1 % (0-8) Platelet Estimate Increased H Platelet Morphology Normal Polychromasia 1+ Hypochromasia 2+ Anisocytosis 1+ Coagulation Test 06/11/18 14:30 Prothrombin Time 11.7 SEC (9.30-11.50) H Prothromb Time International Ratio 1.1 (0.9-1.1) Activated Partial Thromboplast Time 26 SEC (23-33) Chemistry Test 06/11/18 14:30 06/11/18 17:07 06/12/18 04:57 Sodium Level 150 MMOL/L (136-145) H 151 MMOL/L (136-145) H Potassium Level 3.2 MMOL/L (3.5-5.1) L 3.4 MMOL/L (3.5-5.1) L Chloride Level 115 MMOL/L (98-107) H 120 MMOL/L (98-107) H Carbon Dioxide Level 23 MMOL/L (21-32) 23 MMOL/L (21-32) Anion Gap 12 mmol/L (5-15) 8 mmol/L (5-15) Blood Urea Nitrogen 61 mg/dL (-18) H 42 mg/dL (7-18) H Creatinine 1.2 MG/DL (0.55-1.30) 1.0 MG/DL (0.55-1.30) Estimat Glomerular Filtration Rate > 60 mL/min (>60) > 60 mL/min (>60) Glucose Level 98 MG/DL (74-106) 79 MG/DL (74-106) Lactic Acid Level 2.40 mmol/L (0.4-2.0) H 1.90 mmol/L (0.66-2.22) 1.20 mmol/L (0.4-2.0) Calcium Level 8.5 MG/DL (8.5-10.1) 8.2 MG/DL (8.5-10.1) L Total Bilirubin 0.2 MG/DL (0.2-1.0) Aspartate Amino Transf (AST/SGOT) 28 U/L (15-37) Alanine Aminotransferase (ALT/SGPT) 35 U/L (12-78) Alkaline Phosphatase 219 U/L (46-116) H Total Creatine Kinase 24 U/L (26-308) L Creatine Kinase MB 1.4 NG/ML (0.0-3.6) Creatine Kinase MB Relative Index 5.8 Troponin I 0.004 ng/mL (0.000-0.056) Total Protein 7.6 G/DL (6.4-8.2) Albumin 1.1 G/DL (3.4-5.0) L Globulin 6.5 g/dL Albumin/Globulin Ratio 0.2 (1.0-2.7) L Risk Assessment & Plan Assessment: [email or web address] Plan: mac Status Change Before Surgery: No Pre-Antibiotics Drug: Steff Burks MD Jun 12, 2018 08:38
[2018-06-12] MEDS ORDERED: Amiodarone 200mg tab GT SCH (09:00)
[2018-06-12] MEDS ORDERED: Zinc Sulfate 220mg cap ORAL SCH (09:00)
[2018-06-12] MEDS: Carvedilol 6.25mg Tab GT SCH ×2 (09:00→21:12)
--- NOTE | 2018-06-12 09:30 | Immediate Post-Op Evaluation ---
Immediate Post-Op Evalulation Immediate Post-Op Evalulation Procedure: egd w/bx Date of Evaluation: Jun 12, 2018 Time of Evaluation: 08:05 IV Fluids: 50ml 0.9ns Blood Products: none Estimated Blood Loss: negligible Blood Pressure Systolic: 105 Blood Pressure Diastolic: 61 Pulse Rate: 84 Respiratory Rate: 18 O2 Sat by Pulse Oximetry: 100 Temperature (Fahrenheit): 98.1 Pain Score (1-10): 0 Nausea: No Vomiting: No Complications none Patient Status: awake, reacts, patent Hydration Status: adequate Drug: Steff Burks MD Jun 12, 2018 09:30
--- NOTE | 2018-06-12 09:32 | 48 Hour Post Anesthesia Eval ---
Post Anesthesia Evaluation Procedure: egd w/bx Date of Evaluation: Jun 12, 2018 Time of Evaluation: 08:07 Blood Pressure Systolic: 110 0: 65 Pulse Rate: 84 Respiratory Rate: 16 Temperature (Fahrenheit): 98.1 Airway: patent, other - tracheostomy Nausea: No Vomiting: No Pain Intensity: 0 Hydration Status: adequate Cardiopulmonary Status: stable Mental Status/LOC: patient returned to baseline Post-Anesthesia Complications: none Follow-up care needed: N/A Steff Cartagena MD Jun 12, 2018 09:32
[2018-06-12] MEDS ORDERED: Tubing IV Secondary IV ONE (10:45)
[2018-06-12] MEDS ORDERED: NS 275ml ONE (10:45)
--- NOTE | 2018-06-12 12:21 | Cardiology Report ---
APPROVED REPORT EKG Measurement Heart [id number] Sinus tachycardia Nonspecific T wave abnormality Abnormal ECG
[2018-06-12] MEDS: Piperacillin/Tazobactam 3.375 GM in NS 110 ML IVPB SCH ×2 (12:27→22:01)
[2018-06-12] MEDS: levETIRAcetam 500mg/5ml Liquid GT SCH ×2 (12:27→21:13)
[2018-06-12] MEDS: D5 1/2NS 1,000 ML IV SCH ×2 (12:27→16:30)
--- NOTE | 2018-06-12 15:16 | Consultation ---
History of Present Illness General Date patient seen: Jun 12, 2018 Chief Complaint: Abnormal Labs Reason for Consultation: sepsis Present Illness HPI 58M well known to me from multiple prior admissions. I have done debridement on him prior and have considered more debridement as necessary. He currently is admitted for sepsis and in ICU. Wounds progressing and complex. surgery called to evaluate. patient seen, chart reviewed, patient examined. Allergies: Coded Allergies: No Known Allergies (Unverified , 03/07/17) Medication History Scheduled Amino Acids/Protein Hydrolys (Pro-Stat Awc Liquid), 30 ML GT TID, (Reported) Amiodarone Hcl (Amiodarone Hcl), 200 MG GT DAILY, (Reported) Carvedilol* (Carvedilol*), 6.25 MG GT EVERY 12 HOURS, (Reported) Epoetin Rehan (Epogen), 10,000 UNIT SUBQ 3XW, (Reported) Folic Acid* (Folic Acid*), 1 MG GT DAILY, (Reported) Heparin Sod (Porcine) (Heparin Sodium*), 5,000 UNITS SUBQ EVERY 12 HOURS, ( Reported) Ipratropium/Albuterol Sulfate (DuoNeb 0.5-3(2.5)mg/3ml), 3 ML HHN Q6HR, ( Reported) Levetiracetam* (Levetiracetam*), 500 MG GT Q12HR, (Reported) Omeprazole (Omeprazole), 40 MG GT DAILY, (Reported) Tramadol Hcl* (Ultram*), 50 MG GT DAILY, (Reported) Scheduled PRN Albuterol Sulfate* (Albuterol Sulfate Hhn*), 3 ML INH Q3HR PRN for Shortness of Breath, (Reported) Hydrocodone Bit/Acetaminophen 5-325* ([place] 5-325 Tablet*), 1 TAB GT Q4H PRN for Moderate Pain (Pain Scale 4-6), (Reported) Lorazepam* (Ativan*), 0.5 MG GT Q6HR PRN for For Anxiety, (Reported) Nitroglycerin (Nitrostat), 0.4 MG SL Q5M X3 DOSES PRN for CHEST PAIN, (Reported) Ondansetron* (Zofran*), 4 MG IM Q6H PRN for Nausea & Vomiting, (Reported) Polyethylene Glycol 3350* (Miralax*), 17 GM GT DAILY PRN for Constipation, ( Reported) Discontinued Medications Acetaminophen* (Acetaminophen 325MG Tablet*), 650 MG GT Q4H PRN for TEMP > 101F OR MILD PAIN, (Reported) Discontinued Reason: Therapy completed Acetaminophen* (Acetaminophen 325MG Tablet*), 650 MG GT Q4H PRN for Fever/ Headache/Mild Pain, (Reported) Discontinued Reason: Therapy completed Ascorbic Acid* (Vitamin C*), 500 MG GT DAILY, (Reported) Discontinued Reason: Therapy completed Ascorbic Acid* (Vitamin C*), 500 MG GT DAILY, (Reported) Discontinued Reason: Therapy completed Cran/Vitc/Mannose/Inulin/Brom (Uti-Stat Liquid), 30 ML GT THREE TIMES A DAY, ( Reported) Discontinued Reason: Therapy completed Cran/Vitc/Mannose/Inulin/Brom (Uti-Stat Liquid), 3,875 MG GT, (Reported) Discontinued Reason: Therapy completed Diphenhydramine Hcl* (Benadryl*), 25 MG GT Q6H PRN for Itching, (Reported) Discontinued Reason: Therapy completed Docusate Sodium* (Docusate Sodium*), 100 MG GT DAILY, (Reported) Discontinued Reason: Therapy completed Docusate Sodium* (Colace*), 100 MG GT DAILY, (Reported) Discontinued Reason: Therapy completed Ipratropium/Albuterol Sulfate (DuoNeb 0.5-3(2.5)mg/3ml), 3 ML HHN Q3HR PRN for Shortness of Breath, (Reported) Discontinued Reason: MD discontinued med Ipratropium/Albuterol Sulfate (DuoNeb 0.5-3(2.5)mg/3ml), 3 ML HHN Q6HR PRN for Shortness of Breath, (Reported) Discontinued Reason: MD discontinued med Multivitamin With Minerals (Multivitamins With Minerals*), 1 TAB GT DAILY, ( Reported) Discontinued Reason: MD discontinued med Zinc Sulfate (Zinc Sulfate*), 220 MG GT DAILY, (Reported) Discontinued Reason: MD discontinued med Patient History Limited by: medical condition History Provided By: Medical Record, PMD Healthcare decision maker N Resuscitation status Full Code Advanced Directive on File Past Medical/Surgical History Past Medical/Surgical History: (1) Leukocytosis (2) Hypertension (3) Cardiomyopathy (4) Pneumonia (5) Septic shock (6) Bacteremia (7) MDRO (multiple drug resistant organisms) resistance (8) Healthcare-associated pneumonia (9) Abnormal laboratory test result (10) Chronic respiratory acidosis (11) VT (ventricular tachycardia) (12) Feeding by G-tube (13) Sepsis (14) Cerebral vascular disease (15) Pressure ulcer, hip, left, unstageable (16) Sacral decubitus ulcer, stage IV (17) Chronic respiratory failure (18) Atrial fibrillation (19) CHF (congestive heart failure) (20) Seizure disorder (21) HTN (hypertension) (22) Anoxic brain injury (23) Diabetes mellitus type II, uncontrolled (24) Tracheostomy care (25) Acute on chronic respiratory failure (26) EF of 30 (27) Transaminitis (28) Gastrostomy tube skin breakdown (29) G-tube site cellulitis (30) Hypokalemia (31) Anemia (32) Hypernatremia (33) UTI (urinary tract infection) (34) GI bleed Review of Systems ROS Narrative cannot obtain given medical condition Physical Exam General Appearance: mild distress HEENT: mucous membranes moist Neck: normal inspection Respiratory/Chest: no respiratory distress, no accessory muscle use Cardiovascular/Chest: tachycardia Abdomen: normal bowel sounds, soft, no organomegaly, no mass Extremities: other Skin Exam: other Neurologic: unresponsiveness Last 24 Hour Vital Signs Date Time Temp Pulse Resp B/P (MAP) Pulse Ox O2 Delivery O2 Flow Rate FiO2 06/12/18 13:00 110 18 108/66 (80) 100 06/12/18 12:00 Mechanical Ventilator 06/12/18 12:00 99.4 95 19 103/61 (75) 100 99.4 06/12/18 12:00 28 06/12/18 12:00 94 06/12/18 11:00 92 19 109/65 (80) 100 06/12/18 10:00 91 18 114/68 (83) 100 06/12/18 09:32 208.6 84 16 06/12/18 09:30 208.6 84 18 100 06/12/18 09:00 89 16 111/69 (83) 100 06/12/18 09:00 95 103/61 06/12/18 08:00 98.1 95 17 114/65 (81) 100 98.1 06/12/18 08:00 89 06/12/18 08:00 28 06/12/18 08:00 Mechanical Ventilator 06/12/18 07:00 95 16 105/64 (78) 100 06/12/18 06:00 100 16 109/57 (74) 100 06/12/18 05:10 108 17 28 06/12/18 05:00 106 16 108/60 (76) 100 06/12/18 04:00 119 06/12/18 04:00 113 18 97/61 (73) 100 06/12/18 04:00 28 06/12/18 04:00 Mechanical Ventilator 06/12/18 03:09 110 19 28 06/12/18 03:00 100.7 111 19 108/70 (83) 100 100.7 06/12/18 02:00 109 18 107/61 (76) 100 06/12/18 01:10 107 21 28 06/12/18 01:00 106 18 103/63 (76) 100 06/12/18 00:00 Mechanical Ventilator 06/12/18 00:00 101 18 107/66 (80) 100 06/12/18 00:00 106 06/12/18 00:00 28 06/11/18 23:00 107 17 28 06/11/18 23:00 98.1 106 18 106/64 (78) 100 98.1 06/11/18 22:00 108 17 99/59 (72) 100 06/11/18 21:20 110 16 40 06/11/18 21:00 108 106/64 06/11/18 21:00 109 17 106/73 (84) 100 06/11/18 20:00 109 06/11/18 20:00 Mechanical Ventilator 06/11/18 20:00 109 20 107/67 (80) 100 06/11/18 20:00 40 06/11/18 19:01 107 18 40 06/11/18 19:00 98.1 108 18 106/72 (83) 100 98.1 06/11/18 18:50 98.6 113 30 103/69 (80) 98.6 06/11/18 18:38 97.9 100 16 101/59 Mechanical Ventilator 40 100 06/11/18 18:15 108 18 113/73 (86) 100 06/11/18 18:15 Mechanical Ventilator 06/11/18 17:37 97.9 98 18 101/59 100 Mechanical Ventilator 40 97.9 06/11/18 17:35 40 06/11/18 17:30 101 16 Mechanical Ventilator 40 06/11/18 17:20 97.9 101 15 101/58 100 Mechanical Ventilator 40 97.9 06/11/18 17:15 98.1 104 15 98.1 06/11/18 16:44 98 23 40 06/11/18 16:30 100 17 106/59 100 40 06/11/18 16:00 103 16 103/57 Mechanical Ventilator 40 06/11/18 15:30 106 17 105/52 Mechanical Ventilator 40 Intake and Output 06/11/18 06/12/18 19:00 07:00 Intake Total 40 ml 1152.5 ml Output Total 215 ml 325 ml Balance -175 ml 827.5 ml Intake IV Total 40 ml 1092.5 ml Other 60 ml Output Urine Total 215 ml 325 ml # Bowel Movements 1 4 Laboratory Tests Test 06/11/18 17:07 06/11/18 21:29 06/12/18 04:00 06/12/18 04:57 Lactic Acid Level 1.90 mmol/L (0.66-2.22) 1.20 mmol/L (0.4-2.0) Arterial Blood pH 7.416 (7.350-7.450) Arterial Blood Partial Pressure CO2 34.1 mmHg (35.0-45.0) L Arterial Blood Partial Pressure O2 151.8 mmHg (75.0-100.0) H Arterial Blood HCO3 21.4 mmol/L (22.0-26.0) L Arterial Blood Oxygen Saturation 98.9 % (92.0-98.0) H Arterial Blood Base Excess -2.7 Son Test Positive Stool Occult Blood Negative (NEGATIVE) White Blood Count 10.5 K/UL (4.8-10.8) Red Blood Count 3.71 M/UL (4.70-6.10) L Hemoglobin 10.4 G/DL (14.2-18.0) #L Hematocrit 32.6 % (42.0-52.0) #L Mean Corpuscular Volume 88 FL (80-99) Mean Corpuscular Hemoglobin 27.9 PG (27.0-31.0) Mean Corpuscular Hemoglobin Concent 31.8 G/DL (32.0-36.0) L Red Cell Distribution Width 15.6 % (11.6-14.8) H Platelet Count 602 K/UL (150-450) H Mean Platelet Volume 6.2 FL (6.5-10.1) L Neutrophils (%) (Auto) 80.0 % (45.0-75.0) H Lymphocytes (%) (Auto) 11.3 % (20.0-45.0) L Monocytes (%) (Auto) 5.8 % (1.0-10.0) Eosinophils (%) (Auto) 2.7 % (0.0-3.0) Basophils (%) (Auto) 0.2 % (0.0-2.0) Sodium Level 151 MMOL/L (136-145) H Potassium Level 3.4 MMOL/L (3.5-5.1) L Chloride Level 120 MMOL/L (98-107) H Carbon Dioxide Level 23 MMOL/L (21-32) Anion Gap 8 mmol/L (5-15) Blood Urea Nitrogen 42 mg/dL (7-18) H Creatinine 1.0 MG/DL (0.55-1.30) Estimat Glomerular Filtration Rate > 60 mL/min (>60) Glucose Level 79 MG/DL (74-106) Calcium Level 8.2 MG/DL (8.5-10.1) L Microbiology Date/Time Source Procedure Growth Status 06/11/18 21:50 Wound Gram Stain - Final Resulted 06/11/18 21:50 Wound Wound Culture Pending Resulted 06/12/18 04:00 Sputum Gram Stain - Final Resulted 06/12/18 04:00 Sputum Sputum Culture Pending Resulted 06/12/18 04:00 Stool Clostridium difficile Toxin Assay - Final Complete 06/11/18 15:30 Rectum - Preliminary Resulted Height (Feet): 5 Height (Inches): 7.00 Weight (Pounds): 113 Medications Current Medications Medications (Trade) Dose Ordered Sig/Tameka Route PRN Reason Start Time Stop Time Status Last Admin Dose Admin Acetaminophen/ Hydrocodone Bitart ([place] 5/325) 1 tab Q4H PRN GT Moderate Pain (Pain Scale 4-6) 06/11/18 19:45 06/18/18 19:44 Al Hydroxide/Mg Hydroxide (Mylanta) 15 ml Q1H PRN ORAL gi upset 06/12/18 08:00 06/12/18 17:00 Albuterol/ Ipratropium (Albuterol/ Ipratropium) 3 ml Q6H PRN HHN Shortness of Breath 06/11/18 19:45 06/16/18 19:44 Amiodarone HCl (Cordarone) 200 mg DAILY GT 06/12/18 09:00 07/12/18 08:59 06/12/18 12:27 Atropine Sulfate (Atropine) 0.5 mg Q5M PRN IV bpm less than 45 06/12/18 08:00 06/12/18 17:00 Carvedilol (Coreg) 6.25 mg EVERY 12 HOURS GT 06/11/18 21:00 07/11/18 20:59 Dextrose/Sodium Chloride 1,000 ml @ 75 mls/hr [id number] IV 06/11/18 19:45 07/11/18 19:44 06/12/18 12:27 Diphenhydramine HCl (Benadryl) 25 mg Q15M PRN IVP Itching 06/12/18 08:00 06/12/18 17:00 Fentanyl Citrate (Sublimaze 100 mcg/2 mL) 25 mcg Q10M PRN IV Moderate Pain (Pain Scale 4-6) 06/12/18 08:00 06/12/18 17:00 Folic Acid (Folate) 1 mg DAILY GT 06/12/18 09:00 07/12/18 08:59 06/12/18 12:27 Labetalol HCl (Normodyne) 5 mg Q10M PRN IV SBP>160 or____/ DBP>90 or 06/12/18 08:00 06/12/18 17:00 Levetiracetam (Keppra) 500 mg Q12HR GT 06/11/18 21:00 07/11/18 20:59 06/12/18 12:27 Lorazepam (Ativan) 0.5 mg Q6H PRN GT For Anxiety 06/11/18 19:45 06/18/18 19:44 Midazolam HCl (Versed 2mg/2ml vial) 1 mg Q15M PRN IVP For Anxiety 06/12/18 08:00 06/12/18 17:00 Multivitamins (Multivitamins) 1 tab BID ORAL 06/12/18 09:00 07/12/18 08:59 06/12/18 12:27 Ondansetron HCl (Zofran) 4 mg Q1H PRN IVP Nausea & Vomiting 06/12/18 08:00 06/12/18 17:00 Ondansetron HCl (Zofran) 4 mg Q6H PRN IV Nausea & Vomiting 06/11/18 19:45 07/11/18 19:44 Pantoprazole (Protonix) 40 mg DAILY IVP 06/13/18 09:00 07/13/18 08:59 Piperacillin Sod/ Tazobactam Sod 3.375 gm/Sodium Chloride 110 ml @ 27.5 mls/hr Q8H IVPB 06/12/18 00:00 06/19/18 00:00 06/12/18 12:27 Polyethylene Glycol (Miralax) 17 gm DAILY PRN GT Constipation 06/11/18 19:45 07/11/18 19:44 Tramadol HCl (Ultram) 50 mg DAILY PRN GT For Pain 06/11/18 19:45 06/18/18 19:44 Vancomycin HCl (Vanco rx to dose) 1 ea DAILY PRN MISC Per rx protocol 06/11/18 22:00 07/11/18 21:59 Vancomycin HCl 500 mg/Dextrose 110 ml @ 110 mls/hr Q12H IVPB 06/12/18 03:00 06/17/18 02:59 06/12/18 02:32 Zinc Sulfate (Zinc Sulfate) 220 mg DAILY ORAL 06/12/18 09:00 07/12/18 08:59 06/12/18 12:27 Assessment/Plan Problem List: (1) Sepsis Assessment & Plan: unlikely etiology of sepsis to be wounds given chronic. wounds currently more extensive than prior but no active infection stage IV sacral decubitus ulcer - clean, no signs of active infection, no tracking, down to coccyx, some granulation tissue, no significant fibrinous tissue stage IV left hip decubitus ulcer - clean, no signs of active infection, mild 3 o'clock tracking, some granulation tissue, mild fibrinous tissue stage IV left buttock decubitus ulcer - clean, no signs of active infection, no tracking, some granulation tissue, mild fibrinous tissue stage IV right hip decubitus ulcer - clean, no signs of active infection, no tracking, some granulation tissue, moderate fibrinous tissue stage IV right buttock decubitus ulcer - clean, no signs of active infection, no tracking, some granulation tissue, moderate fibrinous tissue bilateral heel/foot wounds - no signs of active infection. All wounds present upon admission. As for care, for now please was wounds, place dry guaze to wound bed, then cover with foam dressing or ABD 2-3 times per day. may need debridement of right hip and buttock wounds to help with healing but for now will monitor. thank you for this consultation. will follow with recs. ICD Codes: A41.9 - Sepsis, unspecified organism SNOMED: [id number] Derek Dong Jun 12, 2018 15:16
[2018-06-12] MEDS ORDERED: LORazepam 0.5mg tab GT PRN (16:20)
[2018-06-12] MEDS ORDERED: Albuterol/Ipratropium 3ml neb HHN PRN (16:21)
[2018-06-12] MEDS ORDERED: Miralax 17gm pkt GT PRN (16:29)
[2018-06-12] MEDS ORDERED: traMADol 50mg tab GT PRN (16:45)
--- NOTE | 2018-06-12 17:28 | Diagnostic Imaging Report ---
Indication: Right hip wound/infection Technique: One view of the pelvis Comparison: none Findings: Exam is very limited as the patient is extremely contracted. There is suggestion of a soft tissue ulcer in the right hip region. There is evidence of extensive proliferative new bone formation. Unable to adequately assess for presence of osteophytosis or fracture. Impression: Very limited exam, as described Right hip region soft tissue ulcer
[2018-06-12] MEDS: Vancomycin 500 MG in D5W 110 ML IVPB SCH (17:53)
[2018-06-12] MEDS: Norco 5mg/325mg tab GT PRN (21:14)
--- NOTE | 2018-06-12 23:33 | Pulmonolgy Critical Care Note ---
Critical Care - Asmt/Plan Assessment/Plan: Patient is a 58 year old man referred from a care home facility with a GI bleed. He is chronically ventilator dependent and has a PEG tube. He has a history of respiratory failure, cardiomyopathy, COPD, sepsis, CVA, cardiac arrhythmia on Amiodarone, encephalopathy, heart failure. The patient is nonverbal at baseline. History is obtained from the patient's medical record. The patient presents from a care home facility for anemia. Labs done today showed a hemoglobin of 6. There was no report of melena or vomiting. There is no other history available. Allergies: Coded Allergies: No Known Allergies (Unverified , 03/07/17) Patient History Past Medical History: see triage record, old chart reviewed, HTN, GA, CAD, CHF , arrhyth, COPD, pneumonia, GERD, CVA/TIA Past Surgical History: pacemaker, other - TRACH/PEG Social History: Denies: smoking, alcohol use, drug use Reviewed Nursing Documentation: PMH: Agreed; PSxH: Agreed Nursing Documentation-PMH Past Medical History: No History, Except For Hx Cardiac Problems: Yes - Afib;. rheumatic tricuspid valve disease Hx Hypertension: Yes - GERD Hx Pacemaker: Yes - Defibrillator implant left chest Hx Asthma: Yes Hx COPD: Yes Hx Diabetes: Yes - TYPE 2 DYSPHAGIA APHAGIA ANEMIA ELIPEPSY SEPSIS Hx Cancer: No Hx Gastrointestinal Problems: Yes - GT; Cirrhosis, dysphagia, tracheostomy, GERD, cirrhosis, ascites Hx Neurological Problems: Yes - ENCEPHALOPATHY, muscle weakness, Hx Cerebrovascular Accident: Yes Hx Transient Ischemic Attacks: Yes Hx Dementia: Yes Hx Seizures: Yes Hx Aphasia: Yes Review of Systems All Other Systems: limited Physical Exam Vital Signs Date Time Temp Pulse Resp B/P (MAP) Pulse Ox O2 Delivery O2 Flow Rate FiO2 06/11/18 14:16 112 16 136/78 100 AC 4.0 Sp02 EP Interpretation: reviewed, normal, other - On ventilator General Appearance: no apparent distress, alert, non-toxic Head: normocephalic, atraumatic Eyes: bilateral eye normal inspection, bilateral eye PERRL ENT: no angioedema, other - Oral thrush Neck: normal inspection, tracheotomy - Trach in place Respiratory: chest non-tender, lungs clear, normal breath sounds, no respiratory distress, no retraction, no accessory muscle use Cardiovascular #1: no edema, tachycardia Gastrointestinal: non tender, soft, non-distended, no guarding, no rebound, other - PEG Rectal: deferred Musculoskeletal: non-tender, other - contracted Neurologic: alert, other - Non-verbal (Trach). Unable to fully assess. Non- focal. Skin: well hydrated, other - See RN skin exam Medical Decision Making Diagnostic Impression: Primary Impression: Anemia Additional Impressions: GI bleed Hypernatremia Hypokalemia UTI (urinary tract infection) Assessment/Plan This patient has h/o Respiratory failure, CHF, HTN, GA, CAD, CHF, arrhythmia, COPD, pneumonia, GERD, CVA/TIA. The patient is cachectic and contracted. He also has a profound anemia that likely is secondary to an occult GI bleed. The patient did have diarrhea and it was brown in color without blood. Patient also has a questionable opacification in the right lower lobe on chest x-ray. He also has a urinalysis consistent with urinary tract infection. The patient was given broad-spectrum antibiotics, aggressive IV fluids and 2 units of packed red blood cells. This patient is admitted to the ICU for further evaluation and treatment. This patient is critically ill. This patient required complex medical decision- making, aggressive intervention, extensive laboratory workup and monitoring. Plan: DC Heparin, continue other [employer]ORDIN[employer] meds, hold parameters for Carvedelol and Amiodarone Continue current Ventilator settings ABG SCD.,s IV Protonix gtt Dr Goodson, GI Consult Serial Labs Sputum/Urinary cultures D5 1/2 NS at 75 Zosyn and Vancomycin for Pneumonia/UTI Critical care time: 40 minutes. Laboratory Tests Test 06/11/18 14:30 06/11/18 14:40 White Blood Count 13.9 K/UL (4.8-10.8) H Red Blood Count 2.66 M/UL (4.70-6.10) L Hemoglobin 6.9 G/DL (14.2-18.0) *L Hematocrit 23.6 % (42.0-52.0) L Mean Corpuscular Volume 89 FL (80-99) Mean Corpuscular Hemoglobin 25.9 PG (27.0-31.0) L Mean Corpuscular Hemoglobin Concent 29.3 G/DL (32.0-36.0) L Red Cell Distribution Width 17.5 % (11.6-14.8) H Platelet Count 657 K/UL (150-450) H Mean Platelet Volume 6.2 FL (6.5-10.1) L Neutrophils (%) (Auto) % (45.0-75.0) Lymphocytes (%) (Auto) % (20.0-45.0) Monocytes (%) (Auto) % (1.0-10.0) Eosinophils (%) (Auto) % (0.0-3.0) Basophils (%) (Auto) % (0.0-2.0) Neutrophils % (Manual) Pending Lymphocytes % (Manual) Pending Platelet Estimate Pending Platelet Morphology Pending Prothrombin Time 11.7 SEC (9.30-11.50) H Prothrombin Time INR 1.1 (0.9-1.1) PTT 26 SEC (23-33) Sodium Level 150 MMOL/L (136-145) H Potassium Level 3.2 MMOL/L (3.5-5.1) L Chloride Level 115 MMOL/L (98-107) H Carbon Dioxide Level 23 MMOL/L (21-32) Anion Gap 12 mmol/L (5-15) Blood Urea Nitrogen 61 mg/dL (7-18) H Creatinine 1.2 MG/DL (0.55-1.30) Estimate Glomerular Filtration Rate > 60 mL/min (>60) Glucose Level 98 MG/DL (74-106) Lactic Acid Level 2.40 mmol/L (0.4-2.0) H Calcium Level 8.5 MG/DL (8.5-10.1) Total Bilirubin 0.2 MG/DL (0.2-1.0) Aspartate Amino Transferase (AST) 28 U/L (15-37) Alanine Aminotransferase (ALT) 35 U/L (12-78) Alkaline Phosphatase 219 U/L (46-116) H Total Creatine Kinase 24 U/L (26-308) L Creatine Kinase MB 1.4 NG/ML (0.0-3.6) Creatine Kinase MB Relative Index 5.8 Troponin I 0.004 ng/mL (0.000-0.056) Total Protein 7.6 G/DL (6.4-8.2) Albumin 1.1 G/DL (3.4-5.0) L Globulin 6.5 g/dL Albumin/Globulin Ratio 0.2 (1.0-2.7) L Urine Color Pale yellow Urine Appearance Slightly cloudy Urine pH 5 (4.5-8.0) Urine Specific [place] 1.010 (1.005-1.035) Urine Protein 2+ (NEGATIVE) H Urine Glucose (UA) Negative (NEGATIVE) Urine Ketones Negative (NEGATIVE) Urine Occult Blood 5+ (NEGATIVE) H Urine Nitrite Negative (NEGATIVE) Urine Bilirubin Negative (NEGATIVE) Urine Urobilinogen Normal MG/DL (0.0-1.0) Urine Leukocyte Esterase 3+ (NEGATIVE) H Urine RBC 2-4 /HPF (0 - 0) H Urine WBC 15-20 /HPF (0 - 0) H Urine Squamous Epithelial Cells None /LPF (NONE/OCC) Urine Calcium Oxalate Crystals Few /LPF (NONE) Urine Bacteria Moderate /HPF (NONE) H Urine Yeast Moderate /HPF (NONE) H EKG Diagnostic Results Rate: tachycardiac Rhythm: other - S.tachycardia ST Segments: no acute changes Rhythm Strip Diag. Results EP Interpretation: yes Rate: 100's Rhythm: no PVC's, no ectopy, other - S.tachycardia Chest X-Ray Diagnostic Results Chest X-Ray Diagnostic Results : Chest X-Ray Ordered: Yes # of Views/Limited/Complete: 1 View Indication: Other Interpretation: other - ?RLL opacity. Last Vital Signs Date Time Temp Pulse Resp B/P (MAP) Pulse Ox O2 Delivery O2 Flow Rate FiO2 06/11/18 14:16 112 16 136/78 100 Trach Collar 4.0 Critical Care - Objective Last 24 Hour Vital Signs Date Time Temp Pulse Resp B/P (MAP) Pulse Ox O2 Delivery O2 Flow Rate FiO2 06/12/18 22:54 98 22 28 06/12/18 21:18 112 29 28 06/12/18 21:12 68 115/68 06/12/18 20:00 Mechanical Ventilator 06/12/18 20:00 28 06/12/18 20:00 110 06/12/18 20:00 100.6 68 22 115/68 (84) 100 100.6 06/12/18 18:40 111 29 28 06/12/18 18:25 97.9 104 20 110/61 (77) 100 97.9 06/12/18 17:18 115 29 28 06/12/18 16:00 109 06/12/18 16:00 28 06/12/18 16:00 Mechanical Ventilator 06/12/18 14:37 117 17 28 06/12/18 14:00 98.0 94 20 110/53 (72) 100 98.0 06/12/18 13:21 118 17 28 06/12/18 13:00 110 18 108/66 (80) 100 06/12/18 12:00 Mechanical Ventilator 06/12/18 12:00 99.4 95 19 103/61 (75) 100 99.4 06/12/18 12:00 28 06/12/18 12:00 94 06/12/18 11:00 92 19 109/65 (80) 100 06/12/18 10:35 94 24 28 06/12/18 10:00 91 18 114/68 (83) 100 06/12/18 09:32 208.6 84 16 06/12/18 09:30 208.6 84 18 100 06/12/18 09:23 90 18 28 06/12/18 09:00 89 16 111/69 (83) 100 06/12/18 09:00 95 103/61 06/12/18 08:00 98.1 95 17 114/65 (81) 100 98.1 06/12/18 08:00 89 06/12/18 08:00 28 06/12/18 08:00 Mechanical Ventilator 06/12/18 07:16 100 18 28 06/12/18 07:00 95 16 105/64 (78) 100 06/12/18 06:00 100 16 109/57 (74) 100 06/12/18 05:10 108 17 28 06/12/18 05:00 106 16 108/60 (76) 100 06/12/18 04:00 119 06/12/18 04:00 113 18 97/61 (73) 100 06/12/18 04:00 28 06/12/18 04:00 Mechanical Ventilator 06/12/18 03:09 110 19 28 06/12/18 03:00 100.7 111 19 108/70 (83) 100 100.7 06/12/18 02:00 109 18 107/61 (76) 100 06/12/18 01:10 107 21 28 06/12/18 01:00 106 18 103/63 (76) 100 06/12/18 00:00 Mechanical Ventilator 06/12/18 00:00 101 18 107/66 (80) 100 06/12/18 00:00 106 06/12/18 00:00 28 Micro: Microbiology Date/Time Source Procedure Growth Status 06/11/18 21:50 Wound Gram Stain - Final Resulted 06/11/18 21:50 Wound Wound Culture Pending Resulted 06/12/18 04:00 Sputum Gram Stain - Final Resulted 06/12/18 04:00 Sputum Sputum Culture Pending Resulted 06/12/18 04:00 Stool Clostridium difficile Toxin Assay - Final Complete 06/11/18 14:40 Urine,Clean Catch Urine Culture - Preliminary Resulted 06/11/18 15:30 Rectum - Preliminary Resulted Critical Care - Subjective FI02: 28 Vent Support Breath Rate: 16 Vent Support Mode: AC Vent Tidal Volume: 600 Sputum Amount: Scant PEEP: 5.0 PIP: 18 Tube Feeding Amount: 65 I&O: Intake and Output 06/11/18 06/12/18 19:00 07:00 Intake Total 40 ml 1152.5 ml Output Total 215 ml 325 ml Balance -175 ml 827.5 ml IV Total 40 ml 1092.5 ml Other 60 ml Output Urine Total 215 ml 325 ml # Bowel Movements 1 4 ET-Tube: 8.0 Fausto Tyler MD Jun 12, 2018 23:33
[2018-06-13] VITALS: BP 106/65
--- NOTE | 2018-06-13 00:30 | Procedure Note ---
DATE OF PROCEDURE: 06/12/2018 GASTROENTEROLOGY PROCEDURE REPORT PROCEDURE: Upper gastrointestinal endoscopy with biopsy. SURGEON: Cleve Goodson M.D. ANESTHESIA: Please see the separate anesthesiologist notes for details. PRE-ENDOSCOPIC DIAGNOSIS: Gastrointestinal bleeding. POST-ENDOSCOPIC DIAGNOSIS: Gastric ulcer in the incisura, status post biopsy. DESCRIPTION OF PROCEDURE: The procedure, its risks, indications, and alternatives could not be explained to the family or the patient, as described in the consultation note. The procedure was therefore started based on the emergency physician. The patient was sedated in the supine position. A diagnostic upper endoscope was introduced through the oropharynx and advanced to the duodenum. The endoscope was then gradually withdrawn and the mucosa was examined carefully. Examination of the upper gastrointestinal mucosa revealed a gastrostomy tube, which was inspected. On the incisura, there was a 0.5 cm x 1 or 1.5 cm ulcer seen with a white base and no active bleeding. The edge of this ulcer was biopsied. The endoscope was removed and the patient was sent to recovery in good condition. COMPLICATIONS: None. RECOMMENDATIONS: 1. Proton pump inhibitor. 2. Follow up biopsy results. 3. Begin tube feedings. Cleve Goodson M.D. DR: MARIBELL JOB#: [id number] CC:
--- NOTE | 2018-06-13 01:00 | Consultation ---
DATE OF CONSULTATION: 06/12/2018 GASTROENTEROLOGY CONSULTATION CONSULTING PHYSICIAN: Cleve Goodson M.D. REFERRING PHYSICIAN: Erasmo David M.D. CHIEF COMPLAINT: I was asked to see this patient by Dr. Erasmo David for evaluation of gastrointestinal bleeding, febrile illness, hypernatremia, and malnutrition. HISTORY OF PRESENT ILLNESS: The patient is an unfortunate, 58-year-old elderly man from a retirement, who comes in with gastrointestinal bleeding. There is no family available for this patient, both per hospital and also per retirement report. He is chronic ventilator patient. He has a gastrostomy and a tracheostomy tube. He has a whole host of medical problems including cardiomyopathy, COPD, sepsis, stroke, cardiac arrhythmias, encephalopathy and heart failure. He is nonverbal at baseline and is unable to provide any history. Most of the information was available from the chart. PAST MEDICAL HISTORY: History of respiratory failure, status post tracheostomy, status post gastrostomy, cardiomyopathy, COPD, history of sepsis, stroke, cardiac arrhythmias, encephalopathy and heart failure. PAST SURGICAL HISTORY: Pacemaker, tracheostomy and gastrostomy. MEDICATIONS: See chart list for details. FAMILY HISTORY: Not available. SOCIAL HISTORY: The patient resides in a retirement. REVIEW OF SYSTEMS: Unobtainable. PHYSICAL EXAMINATION: GENERAL: Debilitated elderly man, seen in the intensive care unit. HEENT: Normocephalic and atraumatic. Dentition is poor. Tracheostomy was in place. CHEST: Revealed coarse breath sounds. CARDIOVASCULAR: Revealed a regular rate. The patient was in restraints. ABDOMEN: Soft. EXTREMITIES: Revealed contractures. LABORATORY AND DIAGNOSTIC DATA: Laboratory data was noted. ASSESSMENT: This patient presents with high sodium level, which is indicative of free water deficit. He will need to have free water replaced by intravenous and/or gastrostomy route. Lab will be drawn once he has undergone endoscopy. With respect to the procedure, the patient will undergo endoscopy to save his life, and therefore, it is needed on urgent basis. There is no family available to obtain consent, therefore, this will be done under emergency statute. RECOMMENDATIONS: Per above discussion and per orders written in the chart. Thank you for asking me to participate in the care of this patient. Cleve Goodson M.D. DR: NICHOLE JOB#: [id number] CC: DEMAR
[2018-06-13 04:00] VITALS: BP 109/63
[2018-06-13 04:31] LABS: BASOPHILS % (AUTO) 0.4 % (0.0-2.0); EOSINOPHILS % (AUTO) 4.8 % (0.0-3.0); HEMATOCRIT 27.5 % (42.0-52.0); HEMOGLOBIN 9.2 G/DL (14.2-18.0); LYMPHOCYTES % (AUTO) 12.6 % (20.0-45.0); MEAN CORPUSCULAR VOLUME 88 FL (80-99); MONOCYTES % (AUTO) 6.4 % (1.0-10.0); NEUTROPHILS % (AUTO) 75.8 % (45.0-75.0); PLATELET COUNT 630 K/UL (150-450); RED BLOOD COUNT 3.13 M/UL (4.70-6.10); RED CELL DISTRIBUTION WIDTH 15.4 % (11.6-14.8)
[2018-06-13 04:39] LABS: ANION GAP 10 mmol/L (5-15); BLOOD UREA NITROGEN 34 mg/dL (7-18); CALCIUM 8.2 MG/DL (8.5-10.1); CARBON DIOXIDE 21 MMOL/L (21-32); CHLORIDE 123 MMOL/L (98-107); POTASSIUM 2.9 MMOL/L (3.5-5.1); SODIUM 154 MMOL/L (136-145)
[2018-06-13] MEDS: D5 1/2NS 1,000 ML IV SCH (06:11)
[2018-06-13] MEDS: Vancomycin 500 MG in D5W 110 ML IVPB SCH ×3 (06:11→21:45)
[2018-06-13] MEDS: Piperacillin/Tazobactam 3.375 GM in NS 110 ML IVPB SCH ×3 (06:12→22:43)
[2018-06-13 08:00] VITALS: BP 111/64
[2018-06-13] MEDS: Pantoprazole Inj IVP SCH (09:00)
[2018-06-13] MEDS ORDERED: Pantoprazole Inj IVP SCH (09:00)
[2018-06-13] MEDS: Zinc Sulfate 220mg cap ORAL SCH (09:43)
[2018-06-13] MEDS: levETIRAcetam 500mg/5ml Liquid GT SCH ×2 (09:44→21:42)
[2018-06-13] MEDS: Amiodarone 200mg tab GT SCH (09:45)
[2018-06-13] MEDS: Carvedilol 6.25mg Tab GT SCH ×2 (09:45→21:41)
[2018-06-13 12:00] VITALS: BP 121/69
--- NOTE | 2018-06-13 14:38 | General Surgery Progress Note ---
General Surgery-Progress Note Subjective Additional Comments films completed. no acute events. Objective Last 24 Hour Vital Signs Date Time Temp Pulse Resp B/P (MAP) Pulse Ox O2 Delivery O2 Flow Rate FiO2 06/13/18 12:33 94 24 28 06/13/18 10:44 86 19 28 06/13/18 09:45 99 110/63 06/13/18 08:36 99 23 28 06/13/18 08:00 99 06/13/18 08:00 98.6 96 20 111/64 (80) 100 98.6 06/13/18 08:00 Mechanical Ventilator 06/13/18 08:00 28 06/13/18 07:19 99.8 06/13/18 06:51 100 20 28 06/13/18 06:17 101.5 06/13/18 05:12 104 20 28 06/13/18 04:00 99 06/13/18 04:00 28 06/13/18 04:00 101.5 93 19 109/63 (78) 100 101.5 06/13/18 04:00 Mechanical Ventilator 06/13/18 02:55 98 20 28 06/13/18 01:06 95 20 28 06/13/18 00:00 98.2 102 21 106/65 (79) 100 98.2 06/13/18 00:00 99 06/13/18 00:00 Mechanical Ventilator 06/13/18 00:00 28 06/12/18 22:54 98 22 28 06/12/18 21:18 112 29 28 06/12/18 21:12 68 115/68 06/12/18 20:00 Mechanical Ventilator 06/12/18 20:00 28 06/12/18 20:00 110 06/12/18 20:00 100.6 68 22 115/68 (84) 100 100.6 06/12/18 18:40 111 29 28 06/12/18 18:25 97.9 104 20 110/61 (77) 100 97.9 06/12/18 17:18 115 29 28 06/12/18 16:00 109 06/12/18 16:00 28 06/12/18 16:00 Mechanical Ventilator I&O Intake and Output 06/12/18 06/13/18 19:00 07:00 Intake Total 1077.5 ml 1232.5 ml Output Total 1505 ml 1200 ml Balance -427.5 ml 32.5 ml Intake Free Water 200 ml IV Total 657.5 ml 212.5 ml Tube Feeding 360 ml 820 ml Other 60 ml Output Urine Total 1505 ml 1000 ml Stool Total 200 ml Dressing: saturated Wound: other Drains: other Cardiovascular: RSR Respiratory: clear Abdomen: soft, flat, present bowel sounds Laboratory Tests Test 06/13/18 04:08 White Blood Count 11.0 K/UL (4.8-10.8) H Red Blood Count 3.13 M/UL (4.70-6.10) L Hemoglobin 9.2 G/DL (14.2-18.0) L Hematocrit 27.5 % (42.0-52.0) L Mean Corpuscular Volume 88 FL (80-99) Mean Corpuscular Hemoglobin 29.3 PG (27.0-31.0) Mean Corpuscular Hemoglobin Concent 33.4 G/DL (32.0-36.0) Red Cell Distribution Width 15.4 % (11.6-14.8) H Platelet Count 630 K/UL (150-450) H Mean Platelet Volume 5.9 FL (6.5-10.1) L Neutrophils (%) (Auto) 75.8 % (45.0-75.0) H Lymphocytes (%) (Auto) 12.6 % (20.0-45.0) L Monocytes (%) (Auto) 6.4 % (1.0-10.0) Eosinophils (%) (Auto) 4.8 % (0.0-3.0) H Basophils (%) (Auto) 0.4 % (0.0-2.0) Sodium Level 154 MMOL/L (136-145) H Potassium Level 2.9 MMOL/L (3.5-5.1) L Chloride Level 123 MMOL/L (98-107) H Carbon Dioxide Level 21 MMOL/L (21-32) Anion Gap 10 mmol/L (5-15) Blood Urea Nitrogen 34 mg/dL (7-18) H Creatinine 1.0 MG/DL (0.55-1.30) Estimat Glomerular Filtration Rate > 60 mL/min (>60) Glucose Level 123 MG/DL (74-106) H Calcium Level 8.2 MG/DL (8.5-10.1) L Vancomycin Level Trough 11.0 ug/mL (5.0-12.0) Plan Problems: (1) Sepsis Assessment & Plan: Xray - Exam is very limited as the patient is extremely contracted. There is suggestion of a soft tissue ulcer in the right hip region. There is evidence of extensive proliferative new bone formation. Unable to adequately assess for presence of osteophytosis or fracture. stage IV sacral decubitus ulcer - clean, no signs of active infection, down to coccyx, some granulation tissue, no significant fibrinous tissue stage IV left hip decubitus ulcer - clean, no signs of active infection, 3 o' clock tracking, some granulation tissue, mild fibrinous tissue stage IV left buttock decubitus ulcer - clean, no signs of active infection, no tracking, some granulation tissue, mild fibrinous tissue stage IV right hip decubitus ulcer - clean, no signs of active infection, no tracking, some granulation tissue, moderate fibrinous tissue stage IV right buttock decubitus ulcer - clean, no signs of active infection, no tracking, some granulation tissue, moderate fibrinous tissue bilateral heel/foot wounds - no signs of active infection. All wounds present upon admission. As for care, for now please was wounds, place dry guaze to wound bed, then cover with foam dressing or ABD 2-3 times per day. may need debridement of right hip and buttock wounds to help with healing but for now will monitor. thank you for this consultation. will follow with recs. Derek Dong Jun 13, 2018 14:38
[2018-06-13] MEDS ORDERED: D5 1/2NS 1000ml IV ONE (15:36)
[2018-06-13] MEDS ORDERED: NS Irrig 1000ml ONE (15:36)
[2018-06-13] MEDS ORDERED: Sterile Water For Irrig 2000ml IRRIG ONE (15:36)
[2018-06-13 16:00] VITALS: BP 125/65
--- NOTE | 2018-06-13 16:06 | General Progress Note ---
Assessment/Plan Assessment/Plan Assessment - GIB - Gastric Ulcer - dysphagia - Resp failure / trach - OBS Recommendations - Continue TF - GT water flushes - Change IV to D5 W - replace K - check and Rx HP if (+) - Elevate HOB - Vent care - Poor Px Subjective Allergies: Coded Allergies: No Known Allergies (Unverified , 03/07/17) Subjective Out of ICU tolerating TF Na higher Objective Last 24 Hour Vital Signs Date Time Temp Pulse Resp B/P (MAP) Pulse Ox O2 Delivery O2 Flow Rate FiO2 06/13/18 14:43 106 19 28 06/13/18 12:33 94 24 28 06/13/18 10:44 86 19 28 06/13/18 09:45 99 110/63 06/13/18 08:36 99 23 28 06/13/18 08:00 99 06/13/18 08:00 98.6 96 20 111/64 (80) 100 98.6 06/13/18 08:00 Mechanical Ventilator 06/13/18 08:00 28 06/13/18 07:19 99.8 06/13/18 06:51 100 20 28 06/13/18 06:17 101.5 06/13/18 05:12 104 20 28 06/13/18 04:00 99 06/13/18 04:00 28 06/13/18 04:00 101.5 93 19 109/63 (78) 100 101.5 06/13/18 04:00 Mechanical Ventilator 06/13/18 02:55 98 20 28 06/13/18 01:06 95 20 28 06/13/18 00:00 98.2 102 21 106/65 (79) 100 98.2 06/13/18 00:00 99 06/13/18 00:00 Mechanical Ventilator 06/13/18 00:00 28 06/12/18 22:54 98 22 28 06/12/18 21:18 112 29 28 06/12/18 21:12 68 115/68 06/12/18 20:00 Mechanical Ventilator 06/12/18 20:00 28 06/12/18 20:00 110 06/12/18 20:00 100.6 68 22 115/68 (84) 100 100.6 06/12/18 18:40 111 29 28 06/12/18 18:25 97.9 104 20 110/61 (77) 100 97.9 06/12/18 17:18 115 29 28 Intake and Output 06/12/18 06/13/18 19:00 07:00 Intake Total 1077.5 ml 1232.5 ml Output Total 1505 ml 1200 ml Balance -427.5 ml 32.5 ml Intake Free Water 200 ml IV Total 657.5 ml 212.5 ml Tube Feeding 360 ml 820 ml Other 60 ml Output Urine Total 1505 ml 1000 ml Stool Total 200 ml Laboratory Tests 06/13/18 04:08: White Blood Count 11.0H, Red Blood Count 3.13L, Hemoglobin 9.2L, Hematocrit 27.5L, Mean Corpuscular Volume 88, Mean Corpuscular Hemoglobin 29.3, Mean Corpuscular Hemoglobin Concent 33.4, Red Cell Distribution Width 15.4H, Platelet Count 630H, Mean Platelet Volume 5.9L, Neutrophils (%) (Auto) 75.8H, Lymphocytes (%) (Auto) 12.6L, Monocytes (%) (Auto) 6.4, Eosinophils (%) (Auto) 4.8H, Basophils (%) (Auto) 0.4, Sodium Level 154H, Potassium Level 2.9L, Chloride Level 123H, Carbon Dioxide Level 21, Anion Gap 10, Blood Urea Nitrogen 34H, Creatinine 1.0, Estimat Glomerular Filtration Rate > 60, Glucose Level 123H , Calcium Level 8.2L, Vancomycin Level Trough 11.0 Height (Feet): 5 Height (Inches): 7.00 Weight (Pounds): 116 Objective Debilitated elderly man NCAT (+) trach Coarse BS RR Soft ND (+) contractures Cleve Goodson MD Jun 13, 2018 16:06
--- NOTE | 2018-06-13 19:36 | Pulmonolgy Critical Care Note ---
Critical Care - Asmt/Plan Assessment/Plan: Patient is a 58 year old man referred from a prison facility with a GI bleed. He is chronically ventilator dependent and has a PEG tube. He has a history of respiratory failure, cardiomyopathy, COPD, sepsis, CVA, cardiac arrhythmia on Amiodarone, encephalopathy, heart failure. The patient is nonverbal at baseline. History is obtained from the patient's medical record. The patient presents from a prison facility for anemia. Labs done today showed a hemoglobin of >9. There was no report of melena or vomiting. There is no other history available. Allergies: Coded Allergies: No Known Allergies (Unverified , 03/07/17) Patient History Past Medical History: see triage record, old chart reviewed, HTN, NJ, CAD, CHF , arrhyth, COPD, pneumonia, GERD, CVA/TIA Past Surgical History: pacemaker, other - TRACH/PEG Social History: Denies: smoking, alcohol use, drug use Reviewed Nursing Documentation: PMH: Agreed; PSxH: Agreed Nursing Documentation-PMH Past Medical History: No History, Except For Hx Cardiac Problems: Yes - Afib;. rheumatic tricuspid valve disease Hx Hypertension: Yes - GERD Hx Pacemaker: Yes - Defibrillator implant left chest Hx Asthma: Yes Hx COPD: Yes Hx Diabetes: Yes - TYPE 2 DYSPHAGIA APHAGIA ANEMIA ELIPEPSY SEPSIS Hx Cancer: No Hx Gastrointestinal Problems: Yes - GT; Cirrhosis, dysphagia, tracheostomy, GERD, cirrhosis, ascites Hx Neurological Problems: Yes - ENCEPHALOPATHY, muscle weakness, Hx Cerebrovascular Accident: Yes Hx Transient Ischemic Attacks: Yes Hx Dementia: Yes Hx Seizures: Yes Hx Aphasia: Yes Review of Systems All Other Systems: limited Physical Exam Vital Signs Date Time Temp Pulse Resp B/P (MAP) Pulse Ox O2 Delivery O2 Flow Rate FiO2 06/11/18 14:16 112 16 136/78 100 AC 4.0 Sp02 EP Interpretation: reviewed, normal, other - On ventilator General Appearance: no apparent distress, alert, non-toxic Head: normocephalic, atraumatic Eyes: bilateral eye normal inspection, bilateral eye PERRL ENT: no angioedema, other - Oral thrush Neck: normal inspection, tracheotomy - Trach in place Respiratory: chest non-tender, lungs clear, normal breath sounds, no respiratory distress, no retraction, no accessory muscle use Cardiovascular #1: no edema, tachycardia Gastrointestinal: non tender, soft, non-distended, no guarding, no rebound, other - PEG Rectal: deferred Musculoskeletal: non-tender, other - contracted Neurologic: alert, other - Non-verbal (Trach). Unable to fully assess. Non- focal. Skin: well hydrated, other - See RN skin exam Medical Decision Making Diagnostic Impression: Primary Impression: Anemia Additional Impressions: GI bleed Hypernatremia Hypokalemia UTI (urinary tract infection) Assessment/Plan This patient has h/o Respiratory failure, CHF, HTN, NJ, CAD, CHF, arrhythmia, COPD, pneumonia, GERD, CVA/TIA. The patient is cachectic and contracted. He also has a profound anemia that likely is secondary to an occult GI bleed. The patient did have diarrhea and it was brown in color without blood. Patient also has a questionable opacification in the right lower lobe on chest x-ray. He also has a urinalysis consistent with urinary tract infection. The patient was given broad-spectrum antibiotics, aggressive IV fluids and 2 units of packed red blood cells. This patient is admitted to the ICU for further evaluation and treatment. This patient is critically ill. This patient required complex medical decision- making, aggressive intervention, extensive laboratory workup and monitoring. Plan: DC Heparin, continue other TEST CLERK meds, hold parameters for Carvedelol and Amiodarone Continue current Ventilator settings ABG SCD.,s IV Protonix gtt Dr Goodson, GI Consult Serial Labs Sputum/Urinary cultures D5 1/2 NS at 75 Zosyn and Vancomycin for Pneumonia/UTI Critical care time: 40 minutes. Laboratory Tests Test 06/11/18 14:30 06/11/18 14:40 White Blood Count 13.9 K/UL (4.8-10.8) H Red Blood Count 2.66 M/UL (4.70-6.10) L Hemoglobin 6.9 G/DL (14.2-18.0) *L Hematocrit 23.6 % (42.0-52.0) L Mean Corpuscular Volume 89 FL (80-99) Mean Corpuscular Hemoglobin 25.9 PG (27.0-31.0) L Mean Corpuscular Hemoglobin Concent 29.3 G/DL (32.0-36.0) L Red Cell Distribution Width 17.5 % (11.6-14.8) H Platelet Count 657 K/UL (150-450) H Mean Platelet Volume 6.2 FL (6.5-10.1) L Neutrophils (%) (Auto) % (45.0-75.0) Lymphocytes (%) (Auto) % (20.0-45.0) Monocytes (%) (Auto) % (1.0-10.0) Eosinophils (%) (Auto) % (0.0-3.0) Basophils (%) (Auto) % (0.0-2.0) Neutrophils % (Manual) Pending Lymphocytes % (Manual) Pending Platelet Estimate Pending Platelet Morphology Pending Prothrombin Time 11.7 SEC (9.30-11.50) H Prothrombin Time INR 1.1 (0.9-1.1) PTT 26 SEC (23-33) Sodium Level 150 MMOL/L (136-145) H Potassium Level 3.2 MMOL/L (3.5-5.1) L Chloride Level 115 MMOL/L (98-107) H Carbon Dioxide Level 23 MMOL/L (21-32) Anion Gap 12 mmol/L (5-15) Blood Urea Nitrogen 61 mg/dL (7-18) H Creatinine 1.2 MG/DL (0.55-1.30) Estimate Glomerular Filtration Rate > 60 mL/min (>60) Glucose Level 98 MG/DL (74-106) Lactic Acid Level 2.40 mmol/L (0.4-2.0) H Calcium Level 8.5 MG/DL (8.5-10.1) Total Bilirubin 0.2 MG/DL (0.2-1.0) Aspartate Amino Transferase (AST) 28 U/L (15-37) Alanine Aminotransferase (ALT) 35 U/L (12-78) Alkaline Phosphatase 219 U/L (46-116) H Total Creatine Kinase 24 U/L (26-308) L Creatine Kinase MB 1.4 NG/ML (0.0-3.6) Creatine Kinase MB Relative Index 5.8 Troponin I 0.004 ng/mL (0.000-0.056) Total Protein 7.6 G/DL (6.4-8.2) Albumin 1.1 G/DL (3.4-5.0) L Globulin 6.5 g/dL Albumin/Globulin Ratio 0.2 (1.0-2.7) L Urine Color Pale yellow Urine Appearance Slightly cloudy Urine pH 5 (4.5-8.0) Urine Specific [place] 1.010 (1.005-1.035) Urine Protein 2+ (NEGATIVE) H Urine Glucose (UA) Negative (NEGATIVE) Urine Ketones Negative (NEGATIVE) Urine Occult Blood 5+ (NEGATIVE) H Urine Nitrite Negative (NEGATIVE) Urine Bilirubin Negative (NEGATIVE) Urine Urobilinogen Normal MG/DL (0.0-1.0) Urine Leukocyte Esterase 3+ (NEGATIVE) H Urine RBC 2-4 /HPF (0 - 0) H Urine WBC 15-20 /HPF (0 - 0) H Urine Squamous Epithelial Cells None /LPF (NONE/OCC) Urine Calcium Oxalate Crystals Few /LPF (NONE) Urine Bacteria Moderate /HPF (NONE) H Urine Yeast Moderate /HPF (NONE) H EKG Diagnostic Results Rate: tachycardiac Rhythm: other - S.tachycardia ST Segments: no acute changes Rhythm Strip Diag. Results EP Interpretation: yes Rate: 100's Rhythm: no PVC's, no ectopy, other - S.tachycardia Chest X-Ray Diagnostic Results Chest X-Ray Diagnostic Results : Chest X-Ray Ordered: Yes # of Views/Limited/Complete: 1 View Indication: Other Interpretation: other - ?RLL opacity. Last Vital Signs Date Time Temp Pulse Resp B/P (MAP) Pulse Ox O2 Delivery O2 Flow Rate FiO2 06/11/18 14:16 112 16 136/78 100 Trach Collar 4.0 Critical Care - Objective Last 24 Hour Vital Signs Date Time Temp Pulse Resp B/P (MAP) Pulse Ox O2 Delivery O2 Flow Rate FiO2 06/13/18 16:37 107 25 28 06/13/18 16:00 Mechanical Ventilator 06/13/18 16:00 97.8 91 20 125/65 (85) 100 97.8 06/13/18 16:00 105 06/13/18 16:00 28 06/13/18 14:43 106 19 28 06/13/18 12:33 94 24 28 06/13/18 12:00 Mechanical Ventilator 06/13/18 12:00 28 06/13/18 12:00 97.7 92 21 121/69 (86) 100 97.7 06/13/18 12:00 91 06/13/18 10:44 86 19 28 06/13/18 09:45 99 110/63 06/13/18 08:36 99 23 28 06/13/18 08:00 99 06/13/18 08:00 98.6 96 20 111/64 (80) 100 98.6 06/13/18 08:00 Mechanical Ventilator 06/13/18 08:00 28 06/13/18 07:19 99.8 06/13/18 06:51 100 20 28 06/13/18 06:17 101.5 06/13/18 05:12 104 20 28 06/13/18 04:00 99 06/13/18 04:00 28 06/13/18 04:00 101.5 93 19 109/63 (78) 100 101.5 06/13/18 04:00 Mechanical Ventilator 06/13/18 02:55 98 20 28 06/13/18 01:06 95 20 28 06/13/18 00:00 98.2 102 21 106/65 (79) 100 98.2 06/13/18 00:00 99 06/13/18 00:00 Mechanical Ventilator 06/13/18 00:00 28 06/12/18 22:54 98 22 28 06/12/18 21:18 112 29 28 06/12/18 21:12 68 115/68 06/12/18 20:00 Mechanical Ventilator 06/12/18 20:00 28 06/12/18 20:00 110 06/12/18 20:00 100.6 68 22 115/68 (84) 100 100.6 Micro: Microbiology Date/Time Source Procedure Growth Status 06/11/18 14:50 Blood Blood Culture - Preliminary NO GROWTH AFTER 24 HOURS Resulted 06/11/18 14:30 Blood Blood Culture - Preliminary NO GROWTH AFTER 24 HOURS Resulted 06/11/18 21:50 Wound Gram Stain - Final Resulted 06/11/18 21:50 Wound Culture - Preliminary Gram Negative Bacillus 1 Resulted 06/12/18 04:00 Sputum Gram Stain - Final Resulted 06/12/18 04:00 Sputum Culture - Preliminary Gram Negative Bacillus 1 Gram Negative Bacillus 2 Resulted 06/11/18 15:30 Nasal Nares MRSA Culture - Final Staphylococcus Aureus - Mrsa Complete 06/12/18 04:00 Stool Clostridium difficile Toxin Assay - Final Complete 06/11/18 14:40 Urine,Clean Catch Urine Culture - Preliminary Gram Negative Patrice Resulted 06/11/18 15:30 Rectum - Preliminary Resulted Critical Care - Subjective ROS Limited/Unobtainable: Yes Condition: stable FI02: 28 Vent Support Breath Rate: 16 Vent Support Mode: AC Vent Tidal Volume: 600 Sputum Amount: Small PEEP: 5.0 PIP: 34 Tube Feeding Amount: 65 I&O: Intake and Output 06/12/18 06/13/18 19:00 07:00 Intake Total 1077.5 ml 1232.5 ml Output Total 1505 ml 1200 ml Balance -427.5 ml 32.5 ml Intake Free Water 200 ml IV Total 657.5 ml 212.5 ml Tube Feeding 360 ml 820 ml Other 60 ml Output Urine Total 1505 ml 1000 ml Stool Total 200 ml ET-Tube: 8.0 Fausto Tyler MD Jun 13, 2018 19:36
[2018-06-13 20:00] VITALS: BP 120/67
[2018-06-14] VITALS: BP 115/72
[2018-06-14] MEDS: Norco 5mg/325mg tab GT PRN ×2 (02:14→08:53)
[2018-06-14 04:00] VITALS: BP 110/76
[2018-06-14 04:25] LABS: BASOPHILS % (AUTO) 0.3 % (0.0-2.0); EOSINOPHILS % (AUTO) 5.7 % (0.0-3.0); HEMATOCRIT 28.8 % (42.0-52.0); HEMOGLOBIN 9.1 G/DL (14.2-18.0); LYMPHOCYTES % (AUTO) 16.4 % (20.0-45.0); MEAN CORPUSCULAR VOLUME 88 FL (80-99); MONOCYTES % (AUTO) 6.7 % (1.0-10.0); NEUTROPHILS % (AUTO) 70.9 % (45.0-75.0); PLATELET COUNT 622 K/UL (150-450); RED BLOOD COUNT 3.28 M/UL (4.70-6.10); RED CELL DISTRIBUTION WIDTH 15.5 % (11.6-14.8); WHITE BLOOD COUNT 10.8 K/UL (4.8-10.8)
[2018-06-14] MEDS: Vancomycin 500 MG in D5W 110 ML IVPB SCH (05:21)
[2018-06-14 05:32] LABS: ANION GAP 12 mmol/L (5-15); BLOOD UREA NITROGEN 25 mg/dL (7-18); CALCIUM 8.1 MG/DL (8.5-10.1); CARBON DIOXIDE 19 MMOL/L (21-32); CHLORIDE 120 MMOL/L (98-107); CREATININE 0.9 MG/DL (0.55-1.30); POTASSIUM 3.1 MMOL/L (3.5-5.1); SODIUM 151 MMOL/L (136-145)
[2018-06-14] MEDS: Piperacillin/Tazobactam 3.375 GM in NS 110 ML IVPB SCH ×3 (06:06→21:29)
[2018-06-14 08:00] VITALS: BP 112/87
[2018-06-14] MEDS: Amiodarone 200mg tab GT SCH (08:52)
[2018-06-14] MEDS: Carvedilol 6.25mg Tab GT SCH ×2 (08:53→20:31)
[2018-06-14] MEDS: levETIRAcetam 500mg/5ml Liquid GT SCH ×2 (08:53→20:31)
[2018-06-14] MEDS: Zinc Sulfate 220mg cap ORAL SCH (08:54)
[2018-06-14] MEDS: Pantoprazole Inj IVP SCH (08:55)
[2018-06-14 12:00] VITALS: BP 121/67
--- NOTE | 2018-06-14 12:34 | General Surgery Progress Note ---
General Surgery-Progress Note Subjective Additional Comments no acute events. overall very poor condition Objective Last 24 Hour Vital Signs Date Time Temp Pulse Resp B/P (MAP) Pulse Ox O2 Delivery O2 Flow Rate FiO2 06/14/18 11:09 101 22 28 06/14/18 09:29 101 18 28 06/14/18 08:53 99.3 06/14/18 08:53 108 112/87 06/14/18 08:00 Mechanical Ventilator 06/14/18 08:00 28 06/14/18 08:00 99.3 108 21 112/87 (95) 100 99.3 06/14/18 08:00 105 06/14/18 07:25 104 24 28 06/14/18 05:26 106 25 28 06/14/18 04:00 98.6 99 22 110/76 (87) 100 98.6 06/14/18 04:00 Mechanical Ventilator 06/14/18 04:00 28 06/14/18 03:35 100 06/14/18 03:30 103 24 28 06/14/18 01:30 104 21 28 06/14/18 00:00 Mechanical Ventilator 06/14/18 00:00 98.7 98 22 115/72 (86) 100 98.7 06/14/18 00:00 28 06/13/18 23:53 97 06/13/18 22:37 100 22 28 06/13/18 21:41 102 120/67 06/13/18 21:30 101 21 28 06/13/18 20:21 102 06/13/18 20:00 28 06/13/18 20:00 Mechanical Ventilator 06/13/18 20:00 99.0 103 23 120/67 (84) 99 99.0 06/13/18 19:30 100 22 28 06/13/18 16:37 107 25 28 06/13/18 16:00 Mechanical Ventilator 06/13/18 16:00 97.8 91 20 125/65 (85) 100 97.8 06/13/18 16:00 105 06/13/18 16:00 28 06/13/18 14:43 106 19 28 I&O Intake and Output 06/13/18 06/14/18 19:00 07:00 Intake Total 1995.0 ml 2625.00 ml Output Total 650 ml 400 ml Balance 1345.0 ml 2225.00 ml Intake Free Water 150 ml 210 ml IV Total 1065.0 ml 1635.00 ml Tube Feeding 780 ml 780 ml Output Urine Total 500 ml 400 ml Stool Total 150 ml Dressing: saturated Wound: other Drains: other Cardiovascular: RSR Respiratory: other Abdomen: soft, flat, non-tender, present bowel sounds Extremities: other Laboratory Tests Test 06/14/18 04:00 White Blood Count 10.8 K/UL (4.8-10.8) Red Blood Count 3.28 M/UL (4.70-6.10) L Hemoglobin 9.1 G/DL (14.2-18.0) L Hematocrit 28.8 % (42.0-52.0) L Mean Corpuscular Volume 88 FL (80-99) Mean Corpuscular Hemoglobin 27.7 PG (27.0-31.0) Mean Corpuscular Hemoglobin Concent 31.5 G/DL (32.0-36.0) L Red Cell Distribution Width 15.5 % (11.6-14.8) H Platelet Count 622 K/UL (150-450) H Mean Platelet Volume 5.6 FL (6.5-10.1) L Neutrophils (%) (Auto) 70.9 % (45.0-75.0) Lymphocytes (%) (Auto) 16.4 % (20.0-45.0) L Monocytes (%) (Auto) 6.7 % (1.0-10.0) Eosinophils (%) (Auto) 5.7 % (0.0-3.0) H Basophils (%) (Auto) 0.3 % (0.0-2.0) Sodium Level 151 MMOL/L (136-145) H Potassium Level 3.1 MMOL/L (3.5-5.1) L Chloride Level 120 MMOL/L (98-107) H Carbon Dioxide Level 19 MMOL/L (21-32) L Anion Gap 12 mmol/L (5-15) Blood Urea Nitrogen 25 mg/dL (7-18) H Creatinine 0.9 MG/DL (0.55-1.30) Estimat Glomerular Filtration Rate > 60 mL/min (>60) Glucose Level 110 MG/DL (74-106) H Calcium Level 8.1 MG/DL (8.5-10.1) L Plan Problems: (1) Sepsis Assessment & Plan: Xray - Exam is very limited as the patient is extremely contracted. There is suggestion of a soft tissue ulcer in the right hip region. There is evidence of extensive proliferative new bone formation. Unable to adequately assess for presence of osteophytosis or fracture. stage IV sacral decubitus ulcer - clean, no signs of active infection, down to coccyx, some granulation tissue, no significant fibrinous tissue stage IV left hip decubitus ulcer - clean, no signs of active infection, 3 o' clock tracking, some granulation tissue, mild fibrinous tissue stage IV left buttock decubitus ulcer - clean, no signs of active infection, no tracking, some granulation tissue, mild fibrinous tissue stage IV right hip decubitus ulcer - clean, no signs of active infection, no tracking, some granulation tissue, moderate fibrinous tissue stage IV right buttock decubitus ulcer - clean, no signs of active infection, no tracking, some granulation tissue, moderate fibrinous tissue bilateral heel/foot wounds - no signs of active infection. multiple ulcers stage I-IV. right great toe deformity All wounds present upon admission. As for care, for now please was wounds, place dry guaze to wound bed, then cover with foam dressing or ABD 2-3 times per day. thank you for this consultation. will follow with recs. Derek Dong Jun 14, 2018 12:34
--- NOTE | 2018-06-14 15:32 | General Progress Note ---
Assessment/Plan Assessment/Plan Assessment - GIB - Gastric Ulcer - dysphagia - Resp failure / trach - OBS Recommendations - Continue TF - GT water flushes - increase D5W - replace K - check and Rx HP if (+) - Elevate HOB - Vent care - Poor Px Subjective Allergies: Coded Allergies: No Known Allergies (Unverified , 03/07/17) Subjective Out of ICU tolerating TF Na still elevated Objective Last 24 Hour Vital Signs Date Time Temp Pulse Resp B/P (MAP) Pulse Ox O2 Delivery O2 Flow Rate FiO2 06/14/18 15:17 104 21 28 06/14/18 12:45 99 20 28 06/14/18 11:09 101 22 28 06/14/18 09:52 99.3 06/14/18 09:29 101 18 28 06/14/18 08:53 99.3 06/14/18 08:53 108 112/87 06/14/18 08:00 Mechanical Ventilator 06/14/18 08:00 28 06/14/18 08:00 99.3 108 21 112/87 (95) 100 99.3 06/14/18 08:00 105 06/14/18 07:25 104 24 28 06/14/18 05:26 106 25 28 06/14/18 04:00 98.6 99 22 110/76 (87) 100 98.6 06/14/18 04:00 Mechanical Ventilator 06/14/18 04:00 28 06/14/18 03:35 100 06/14/18 03:30 103 24 28 06/14/18 01:30 104 21 28 06/14/18 00:00 Mechanical Ventilator 06/14/18 00:00 98.7 98 22 115/72 (86) 100 98.7 06/14/18 00:00 28 06/13/18 23:53 97 06/13/18 22:37 100 22 28 06/13/18 21:41 102 120/67 06/13/18 21:30 101 21 28 06/13/18 20:21 102 06/13/18 20:00 28 06/13/18 20:00 Mechanical Ventilator 06/13/18 20:00 99.0 103 23 120/67 (84) 99 99.0 06/13/18 19:30 100 22 28 06/13/18 16:37 107 25 28 06/13/18 16:00 Mechanical Ventilator 06/13/18 16:00 97.8 91 20 125/65 (85) 100 97.8 06/13/18 16:00 105 06/13/18 16:00 28 Intake and Output 06/13/18 06/14/18 19:00 07:00 Intake Total 1995.0 ml 2625.00 ml Output Total 650 ml 400 ml Balance 1345.0 ml 2225.00 ml Intake Free Water 150 ml 210 ml IV Total 1065.0 ml 1635.00 ml Tube Feeding 780 ml 780 ml Output Urine Total 500 ml 400 ml Stool Total 150 ml Laboratory Tests 06/14/18 04:00: White Blood Count 10.8, Red Blood Count 3.28L, Hemoglobin 9.1L, Hematocrit 28.8L , Mean Corpuscular Volume 88, Mean Corpuscular Hemoglobin 27.7, Mean Corpuscular Hemoglobin Concent 31.5L, Red Cell Distribution Width 15.5H, Platelet Count 622H, Mean Platelet Volume 5.6L, Neutrophils (%) (Auto) 70.9, Lymphocytes (%) (Auto) 16.4L, Monocytes (%) (Auto) 6.7, Eosinophils (%) (Auto) 5.7H, Basophils (%) (Auto) 0.3, Sodium Level 151H, Potassium Level 3.1L, Chloride Level 120H, Carbon Dioxide Level 19L, Anion Gap 12, Blood Urea Nitrogen 25H, Creatinine 0.9, Estimat Glomerular Filtration Rate > 60, Glucose Level 110H, Calcium Level 8.1L 06/14/18 12:45: Vancomycin Level Trough 23.4H Height (Feet): 5 Height (Inches): 7.00 Weight (Pounds): 117 Objective Debilitated elderly man NCAT (+) trach Coarse BS RR Soft ND (+) contractures Cleve Goodson MD Jun 14, 2018 15:31
[2018-06-14 16:00] VITALS: BP 120/68
[2018-06-14] MEDS ORDERED: NS Irrig 1000ml ONE (16:00)
[2018-06-14] MEDS ORDERED: Sterile Water Irrig 1000ml IRRIG ONE (16:00)
[2018-06-14] MEDS ORDERED: Amikacin Rx to dose MISC PRN (16:45)
[2018-06-14] MEDS ORDERED: Amikacin 800 MG in NS 110 ML IV SCH (18:00)
[2018-06-14] MEDS ORDERED: Vancomycin 500mg/D5W 110ml IVPB SCH ×2 (18:00)
--- NOTE | 2018-06-14 18:26 | Pulmonolgy Critical Care Note ---
Critical Care - Asmt/Plan Assessment/Plan: Patient is a 58 year old man referred from a [facility] facility with a GI bleed. He is chronically ventilator dependent and has a PEG tube. He has a history of respiratory failure, cardiomyopathy, COPD, sepsis, CVA, cardiac arrhythmia on Amiodarone, encephalopathy, heart failure. The patient is nonverbal at baseline. History is obtained from the patient's medical record. The patient presents from a [facility] facility for anemia. Labs done today showed a hemoglobin of >9. There was no report of melena or vomiting. There is no other history available. Allergies: Coded Allergies: No Known Allergies (Unverified , 03/07/17) Patient History Past Medical History: see triage record, old chart reviewed, HTN, TN, CAD, CHF , arrhyth, COPD, pneumonia, GERD, CVA/TIA Past Surgical History: pacemaker, other - TRACH/PEG Social History: Denies: smoking, alcohol use, drug use Reviewed Nursing Documentation: PMH: Agreed; PSxH: Agreed Nursing Documentation-PMH Past Medical History: No History, Except For Hx Cardiac Problems: Yes - Afib;. rheumatic tricuspid valve disease Hx Hypertension: Yes - GERD Hx Pacemaker: Yes - Defibrillator implant left chest Hx Asthma: Yes Hx COPD: Yes Hx Diabetes: Yes - TYPE 2 DYSPHAGIA APHAGIA ANEMIA ELIPEPSY SEPSIS Hx Cancer: No Hx Gastrointestinal Problems: Yes - GT; Cirrhosis, dysphagia, tracheostomy, GERD, cirrhosis, ascites Hx Neurological Problems: Yes - ENCEPHALOPATHY, muscle weakness, Hx Cerebrovascular Accident: Yes Hx Transient Ischemic Attacks: Yes Hx Dementia: Yes Hx Seizures: Yes Hx Aphasia: Yes Review of Systems All Other Systems: limited Physical Exam Vital Signs Date Time Temp Pulse Resp B/P (MAP) Pulse Ox O2 Delivery O2 Flow Rate FiO2 06/11/18 14:16 112 16 136/78 100 AC 4.0 Sp02 EP Interpretation: reviewed, normal, other - On ventilator General Appearance: no apparent distress, alert, non-toxic Head: normocephalic, atraumatic Eyes: bilateral eye normal inspection, bilateral eye PERRL ENT: no angioedema, other - Oral thrush Neck: normal inspection, tracheotomy - Trach in place Respiratory: chest non-tender, lungs clear, normal breath sounds, no respiratory distress, no retraction, no accessory muscle use Cardiovascular #1: no edema, tachycardia Gastrointestinal: non tender, soft, non-distended, no guarding, no rebound, other - PEG Rectal: deferred Musculoskeletal: non-tender, other - contracted Neurologic: alert, other - Non-verbal (Trach). Unable to fully assess. Non- focal. Skin: well hydrated, other - See RN skin exam Medical Decision Making Diagnostic Impression: Primary Impression: Anemia Additional Impressions: GI bleed Hypernatremia Hypokalemia UTI (urinary tract infection) Assessment/Plan This patient has h/o Respiratory failure, CHF, HTN, TN, CAD, CHF, arrhythmia, COPD, pneumonia, GERD, CVA/TIA. The patient is cachectic and contracted. He also has a profound anemia that likely is secondary to an occult GI bleed. The patient did have diarrhea and it was brown in color without blood. Patient also has a questionable opacification in the right lower lobe on chest x-ray. He also has a urinalysis consistent with urinary tract infection. The patient was given broad-spectrum antibiotics, aggressive IV fluids and 2 units of packed red blood cells. This patient is admitted to the ICU for further evaluation and treatment. This patient is critically ill. This patient required complex medical decision- making, aggressive intervention, extensive laboratory workup and monitoring. Plan: DC Heparin, continue other [employer] meds, hold parameters for Carvedelol and Amiodarone Continue current Ventilator settings DC Vancomycin Amicacin per Pharmacy Zosyn Supplement K ABG SCD.,s Protonix Dr Goodson, GI Consult Serial Labs Sputum/Urinary cultures D5 1/2 NS at 75 Zosyn and Vancomycin for Pneumonia/UTI Critical care time: 40 minutes. Laboratory Tests Test 06/11/18 14:30 06/11/18 14:40 White Blood Count 13.9 K/UL (4.8-10.8) H Red Blood Count 2.66 M/UL (4.70-6.10) L Hemoglobin 6.9 G/DL (14.2-18.0) *L Hematocrit 23.6 % (42.0-52.0) L Mean Corpuscular Volume 89 FL (80-99) Mean Corpuscular Hemoglobin 25.9 PG (27.0-31.0) L Mean Corpuscular Hemoglobin Concent 29.3 G/DL (32.0-36.0) L Red Cell Distribution Width 17.5 % (11.6-14.8) H Platelet Count 657 K/UL (150-450) H Mean Platelet Volume 6.2 FL (6.5-10.1) L Neutrophils (%) (Auto) % (45.0-75.0) Lymphocytes (%) (Auto) % (20.0-45.0) Monocytes (%) (Auto) % (1.0-10.0) Eosinophils (%) (Auto) % (0.0-3.0) Basophils (%) (Auto) % (0.0-2.0) Neutrophils % (Manual) Pending Lymphocytes % (Manual) Pending Platelet Estimate Pending Platelet Morphology Pending Prothrombin Time 11.7 SEC (9.30-11.50) H Prothrombin Time INR 1.1 (0.9-1.1) PTT 26 SEC (23-33) Sodium Level 150 MMOL/L (136-145) H Potassium Level 3.2 MMOL/L (3.5-5.1) L Chloride Level 115 MMOL/L (98-107) H Carbon Dioxide Level 23 MMOL/L (21-32) Anion Gap 12 mmol/L (5-15) Blood Urea Nitrogen 61 mg/dL (7-18) H Creatinine 1.2 MG/DL (0.55-1.30) Estimate Glomerular Filtration Rate > 60 mL/min (>60) Glucose Level 98 MG/DL (74-106) Lactic Acid Level 2.40 mmol/L (0.4-2.0) H Calcium Level 8.5 MG/DL (8.5-10.1) Total Bilirubin 0.2 MG/DL (0.2-1.0) Aspartate Amino Transferase (AST) 28 U/L (15-37) Alanine Aminotransferase (ALT) 35 U/L (12-78) Alkaline Phosphatase 219 U/L (46-116) H Total Creatine Kinase 24 U/L (26-308) L Creatine Kinase MB 1.4 NG/ML (0.0-3.6) Creatine Kinase MB Relative Index 5.8 Troponin I 0.004 ng/mL (0.000-0.056) Total Protein 7.6 G/DL (6.4-8.2) Albumin 1.1 G/DL (3.4-5.0) L Globulin 6.5 g/dL Albumin/Globulin Ratio 0.2 (1.0-2.7) L Urine Color Pale yellow Urine Appearance Slightly cloudy Urine pH 5 (4.5-8.0) Urine Specific Iva 1.010 (1.005-1.035) Urine Protein 2+ (NEGATIVE) H Urine Glucose (UA) Negative (NEGATIVE) Urine Ketones Negative (NEGATIVE) Urine Occult Blood 5+ (NEGATIVE) H Urine Nitrite Negative (NEGATIVE) Urine Bilirubin Negative (NEGATIVE) Urine Urobilinogen Normal MG/DL (0.0-1.0) Urine Leukocyte Esterase 3+ (NEGATIVE) H Urine RBC 2-4 /HPF (0 - 0) H Urine WBC 15-20 /HPF (0 - 0) H Urine Squamous Epithelial Cells None /LPF (NONE/OCC) Urine Calcium Oxalate Crystals Few /LPF (NONE) Urine Bacteria Moderate /HPF (NONE) H Urine Yeast Moderate /HPF (NONE) H EKG Diagnostic Results Rate: tachycardiac Rhythm: other - S.tachycardia ST Segments: no acute changes Rhythm Strip Diag. Results EP Interpretation: yes Rate: 100's Rhythm: no PVC's, no ectopy, other - S.tachycardia Chest X-Ray Diagnostic Results Chest X-Ray Diagnostic Results : Chest X-Ray Ordered: Yes # of Views/Limited/Complete: 1 View Indication: Other Interpretation: other - ?RLL opacity. Last Vital Signs Date Time Temp Pulse Resp B/P (MAP) Pulse Ox O2 Delivery O2 Flow Rate FiO2 06/11/18 14:16 112 16 136/78 100 Trach Collar 4.0 Critical Care - Objective Last 24 Hour Vital Signs Date Time Temp Pulse Resp B/P (MAP) Pulse Ox O2 Delivery O2 Flow Rate FiO2 06/14/18 17:22 106 24 28 06/14/18 16:00 98.2 106 21 120/68 (85) 100 98.2 06/14/18 16:00 28 06/14/18 16:00 Mechanical Ventilator 06/14/18 16:00 103 06/14/18 15:17 104 21 28 06/14/18 12:45 99 20 28 06/14/18 12:00 Mechanical Ventilator 06/14/18 12:00 98 06/14/18 12:00 28 06/14/18 12:00 98.4 96 20 121/67 (85) 100 98.4 06/14/18 11:09 101 22 28 06/14/18 09:52 99.3 7/29/18 09:29 101 18 28 06/14/18 08:53 99.3 06/14/18 08:53 108 112/87 06/14/18 08:00 Mechanical Ventilator 06/14/18 08:00 28 06/14/18 08:00 99.3 108 21 112/87 (95) 100 99.3 06/14/18 08:00 105 06/14/18 07:25 104 24 28 06/14/18 05:26 106 25 28 06/14/18 04:00 98.6 99 22 110/76 (87) 100 98.6 06/14/18 04:00 Mechanical Ventilator 06/14/18 04:00 28 06/14/18 03:35 100 06/14/18 03:30 103 24 28 06/14/18 01:30 104 21 28 06/14/18 00:00 Mechanical Ventilator 06/14/18 00:00 98.7 98 22 115/72 (86) 100 98.7 06/14/18 00:00 28 06/13/18 23:53 97 06/13/18 22:37 100 22 28 06/13/18 21:41 102 120/67 06/13/18 21:30 101 21 28 06/13/18 20:21 102 06/13/18 20:00 28 06/13/18 20:00 Mechanical Ventilator 06/13/18 20:00 99.0 103 23 120/67 (84) 99 99.0 06/13/18 19:30 100 22 28 Micro: Microbiology Date/Time Source Procedure Growth Status 06/11/18 21:50 Wound Gram Stain - Final Resulted 06/11/18 21:50 Wound Culture - Preliminary Gram Negative Bacillus 1 Gram Negative Bacillus 2 Resulted 06/12/18 04:00 Sputum Gram Stain - Final Resulted 06/12/18 04:00 Sputum Culture - Preliminary Pseudomonas Aeruginosa Providencia Stuartii Resulted 06/12/18 04:00 Stool Clostridium difficile Toxin Assay - Final Complete Critical Care - Subjective ROS Limited/Unobtainable: Yes FI02: 28 Vent Support Breath Rate: 16 Vent Support Mode: AC Vent Tidal Volume: 600 Sputum Amount: Small PEEP: 5.0 PIP: 26 Tube Feeding Amount: 65 I&O: Intake and Output 06/13/18 06/14/18 19:00 07:00 Intake Total 1995.0 ml 2625.00 ml Output Total 650 ml 400 ml Balance 1345.0 ml 2225.00 ml Intake Free Water 150 ml 210 ml IV Total 1065.0 ml 1635.00 ml Tube Feeding 780 ml 780 ml Output Urine Total 500 ml 400 ml Stool Total 150 ml ET-Tube: 8.0 Fausto Tyler MD Jun 14, 2018 18:26
[2018-06-14 20:00] VITALS: BP 143/74
[2018-06-15] VITALS: BP 112/64
[2018-06-15 04:00] VITALS: BP 125/80
[2018-06-15] MEDS: Piperacillin/Tazobactam 3.375 GM in NS 110 ML IVPB SCH (06:21)
--- NOTE | 2018-06-15 07:42 | General Progress Note ---
Assessment/Plan Assessment/Plan h/o Respiratory failure, CHF, HTN, CA, CAD, CHF, arrhythmia, COPD, pneumonia, GERD, CVA/TIA. PLAN care noted monitor as is respiratory care monitor fluid status impression, plan, and exam edited and reviewed in detail care discussed with RN in detail d/w sister, Sherley and confirmed with RN- wants terminal care and does not want him to suffer will remove vent and start morphine withdraw care sister aware and wishes to proceed with terminal care Subjective ROS Limited/Unobtainable: Yes Allergies: Coded Allergies: No Known Allergies (Unverified , 03/07/17) Objective Last 24 Hour Vital Signs Date Time Temp Pulse Resp B/P (MAP) Pulse Ox O2 Delivery O2 Flow Rate FiO2 06/15/18 07:10 93 22 28 06/15/18 05:21 91 24 28 06/15/18 04:00 28 06/15/18 04:00 92 06/15/18 04:00 Mechanical Ventilator 06/15/18 04:00 97.9 93 19 125/80 (95) 100 97.9 06/15/18 03:30 94 20 28 06/15/18 01:44 98.9 06/15/18 01:30 93 18 28 06/15/18 00:45 99.9 06/15/18 00:00 99.9 100 22 112/64 (80) 100 99.9 06/15/18 00:00 28 06/15/18 00:00 Mechanical Ventilator 06/15/18 00:00 99 06/14/18 23:07 97 21 28 06/14/18 21:30 107 25 28 06/14/18 20:31 105 147/80 06/14/18 20:00 Mechanical Ventilator 06/14/18 20:00 99.0 108 21 143/74 (97) 100 99.0 06/14/18 20:00 108 06/14/18 20:00 28 06/14/18 19:30 104 26 28 06/14/18 17:22 106 24 28 06/14/18 16:00 98.2 106 21 120/68 (85) 100 98.2 06/14/18 16:00 28 06/14/18 16:00 Mechanical Ventilator 06/14/18 16:00 103 06/14/18 15:17 104 21 28 7/29/18 12:45 99 20 28 06/14/18 12:00 Mechanical Ventilator 06/14/18 12:00 98 06/14/18 12:00 28 06/14/18 12:00 98.4 96 20 121/67 (85) 100 98.4 06/14/18 11:09 101 22 28 06/14/18 09:52 99.3 06/14/18 09:29 101 18 28 06/14/18 08:53 99.3 06/14/18 08:53 108 112/87 06/14/18 08:00 Mechanical Ventilator 06/14/18 08:00 28 06/14/18 08:00 99.3 108 21 112/87 (95) 100 99.3 06/14/18 08:00 105 Intake and Output 06/14/18 06/15/18 19:00 07:00 Intake Total 1972.5 ml 2510.0 ml Output Total 1700 ml 650 ml Balance 272.5 ml 1860.0 ml Intake Free Water 200 ml 200 ml IV Total 932.5 ml 1535.0 ml Tube Feeding 780 ml 715 ml Other 60 ml 60 ml Output Urine Total 1600 ml 650 ml Stool Total 100 ml 0 ml # Bowel Movements 1 Laboratory Tests 06/14/18 12:45: Vancomycin Level Trough 23.4H 06/15/18 06:20: Sodium Level [Pending], Potassium Level [Pending], Chloride Level [Pending], Carbon Dioxide Level [Pending], Blood Urea Nitrogen [Pending], Creatinine [ Pending], Estimat Glomerular Filtration Rate [Pending], Glucose Level [Pending] , Calcium Level [Pending], Random Amikacin Level [Pending] Height (Feet): 5 Height (Inches): 7.00 Weight (Pounds): 116 Objective WDWN NAD clear breath sounds bilaterally without rhonchi or wheeze [id number] without MRG NABS nontender no HSM no CCE contracted Erasmo David MD Jun 15, 2018 07:42
[2018-06-15 08:00] VITALS: BP 129/64
[2018-06-15 08:14] LABS: ANION GAP 9 mmol/L (5-15); BLOOD UREA NITROGEN 20 mg/dL (7-18); CALCIUM 7.7 MG/DL (8.5-10.1); CARBON DIOXIDE 19 MMOL/L (21-32); CHLORIDE 113 MMOL/L (98-107); CREATININE 0.7 MG/DL (0.55-1.30); SODIUM 141 MMOL/L (136-145)
[2018-06-15] MEDS ORDERED: Morphine Sulfate 2mg/ml Inj IVP SCH ×2 (08:45→09:30)
[2018-06-15] MEDS ORDERED: Morphine Sulfate 4mg/ml Inj IVP PRN ×2 (08:45→10:45)
--- NOTE | 2018-06-15 08:51 | General Progress Note ---
Assessment/Plan Assessment/Plan Assessment - GIB - Gastric Ulcer - dysphagia - Resp failure / trach - OBS - poor px Recommendations - erminal care per family directive - will sign off - please call PRN Subjective Allergies: Coded Allergies: No Known Allergies (Unverified , 03/07/17) Subjective above noted terminal care plans in progress Objective Last 24 Hour Vital Signs Date Time Temp Pulse Resp B/P (MAP) Pulse Ox O2 Delivery O2 Flow Rate FiO2 06/15/18 07:10 93 22 28 06/15/18 05:21 91 24 28 06/15/18 04:00 28 06/15/18 04:00 92 06/15/18 04:00 Mechanical Ventilator 06/15/18 04:00 97.9 93 19 125/80 (95) 100 97.9 06/15/18 03:30 94 20 28 06/15/18 01:44 98.9 06/15/18 01:30 93 18 28 06/15/18 00:45 99.9 06/15/18 00:00 99.9 100 22 112/64 (80) 100 99.9 06/15/18 00:00 28 06/15/18 00:00 Mechanical Ventilator 06/15/18 00:00 99 06/14/18 23:07 97 21 28 06/14/18 21:30 107 25 28 06/14/18 20:31 105 147/80 06/14/18 20:00 Mechanical Ventilator 06/14/18 20:00 99.0 108 21 143/74 (97) 100 99.0 06/14/18 20:00 108 06/14/18 20:00 28 06/14/18 19:30 104 26 28 06/14/18 17:22 106 24 28 06/14/18 16:00 98.2 106 21 120/68 (85) 100 98.2 06/14/18 16:00 28 06/14/18 16:00 Mechanical Ventilator 06/14/18 16:00 103 06/14/18 15:17 104 21 28 06/14/18 12:45 99 20 28 06/14/18 12:00 Mechanical Ventilator 06/14/18 12:00 98 06/14/18 12:00 28 06/14/18 12:00 98.4 96 20 121/67 (85) 100 98.4 06/14/18 11:09 101 22 28 06/14/18 09:52 99.3 06/14/18 09:29 101 18 28 06/14/18 08:53 99.3 06/14/18 08:53 108 112/87 Intake and Output 06/14/18 06/15/18 19:00 07:00 Intake Total 1972.5 ml 2510.0 ml Output Total 1700 ml 650 ml Balance 272.5 ml 1860.0 ml Intake Free Water 200 ml 200 ml IV Total 932.5 ml 1535.0 ml Tube Feeding 780 ml 715 ml Other 60 ml 60 ml Output Urine Total 1600 ml 650 ml Stool Total 100 ml 0 ml # Bowel Movements 1 Laboratory Tests 06/14/18 12:45: Vancomycin Level Trough 23.4H 06/15/18 06:20: Sodium Level 141, Potassium Level 3.0L, Chloride Level 113H, Carbon Dioxide Level 19L, Anion Gap 9, Blood Urea Nitrogen 20H, Creatinine 0.7, Estimat Glomerular Filtration Rate > 60, Glucose Level 109H, Calcium Level 7.7L, Random Amikacin Level [Pending] Height (Feet): 5 Height (Inches): 7.00 Weight (Pounds): 116 Objective Debilitated elderly man NCAT (+) trach Coarse BS RR Soft ND (+) contractures Cleve Goodson MD Jun 15, 2018 08:51
--- NOTE | 2018-06-15 09:09 | Diagnostic Imaging Report ---
Indication: Foot pain Technique: 3 views right foot Comparison: none Findings: Bones are profoundly osteoporotic. There is pencil deformity of the fourth distal phalanx, presumably on the basis of chronic erosive changes. No definite acute fractures or dislocations. The joint spaces are preserved. Minimal periarticular erosions are seen at the head of the fifth proximal phalanx, probably on the basis of erosive osteoarthropathy. There is questionably a soft tissue ulcer adjacent to the base of the fifth metacarpal. No definite osseous erosions or unusual periosteal reaction. Impression: No acute bony trauma Profound osteoporotic change No definite plain radiographic evidence of acute osteomyelitis. Note, however, limited sensitivity of plain radiographs for such. Consider nuclear medicine bone scan or MRI for further evaluation if there is high clinical suspicion
[2018-06-15 12:00] VITALS: BP 132/79
[2018-06-15 16:00] VITALS: BP 134/69
[2018-06-15] MEDS ORDERED: NS 275ml ONE ×2 (16:12)
[2018-06-15] MEDS ORDERED: Tubing IV Secondary IV ONE (16:12)
--- NOTE | 2018-06-15 17:06 | General Surgery Progress Note ---
General Surgery-Progress Note Subjective Additional Comments extubated. doing well. family at bedside. Objective Last 24 Hour Vital Signs Date Time Temp Pulse Resp B/P (MAP) Pulse Ox O2 Delivery O2 Flow Rate FiO2 06/15/18 13:00 97 T-piece 10.0 50 06/15/18 13:00 T-piece 10.0 50 06/15/18 12:00 98.6 101 20 132/79 (96) 99 98.6 06/15/18 12:00 Mechanical Ventilator 06/15/18 11:44 100 06/15/18 10:38 99 T-piece 10.0 50 06/15/18 10:38 T-piece 10.0 50 06/15/18 09:14 102 33 28 06/15/18 09:00 28 06/15/18 08:00 98.6 103 25 129/64 (85) 95 98.6 06/15/18 08:00 Mechanical Ventilator 06/15/18 08:00 Mechanical Ventilator 06/15/18 07:42 92 06/15/18 07:10 93 22 28 06/15/18 05:21 91 24 28 06/15/18 04:00 28 06/15/18 04:00 92 06/15/18 04:00 Mechanical Ventilator 06/15/18 04:00 97.9 93 19 125/80 (95) 100 97.9 06/15/18 03:30 94 20 28 06/15/18 01:44 98.9 06/15/18 01:30 93 18 28 06/15/18 00:45 99.9 06/15/18 00:00 99.9 100 22 112/64 (80) 100 99.9 06/15/18 00:00 28 06/15/18 00:00 Mechanical Ventilator 06/15/18 00:00 99 06/14/18 23:07 97 21 28 06/14/18 21:30 107 25 28 06/14/18 20:31 105 147/80 06/14/18 20:00 Mechanical Ventilator 06/14/18 20:00 99.0 108 21 143/74 (97) 100 99.0 06/14/18 20:00 108 06/14/18 20:00 28 06/14/18 19:30 104 26 28 06/14/18 17:22 106 24 28 I&O Intake and Output 06/14/18 06/15/18 19:00 07:00 Intake Total 1972.5 ml 2635.0 ml Output Total 1700 ml 650 ml Balance 272.5 ml 1985.0 ml Intake Free Water 200 ml 200 ml IV Total 932.5 ml 1660.0 ml Tube Feeding 780 ml 715 ml Other 60 ml 60 ml Output Urine Total 1600 ml 650 ml Stool Total 100 ml 0 ml # Bowel Movements 1 Dressing: saturated Wound: other Drains: other Cardiovascular: other Respiratory: decreased breath sounds Abdomen: soft, flat, non-tender, present bowel sounds Extremities: other Laboratory Tests Test 06/15/18 06:20 Sodium Level 141 MMOL/L (136-145) Potassium Level 3.0 MMOL/L (3.5-5.1) L Chloride Level 113 MMOL/L (98-107) H Carbon Dioxide Level 19 MMOL/L (21-32) L Anion Gap 9 mmol/L (5-15) Blood Urea Nitrogen 20 mg/dL (7-18) H Creatinine 0.7 MG/DL (0.55-1.30) Estimat Glomerular Filtration Rate > 60 mL/min (>60) Glucose Level 109 MG/DL (74-106) H Calcium Level 7.7 MG/DL (8.5-10.1) L Random Amikacin Level 14.5 ug/mL Plan Problems: (1) Sepsis Assessment & Plan: stage IV sacral decubitus ulcer - clean, no signs of active infection, down to coccyx, some granulation tissue, no significant fibrinous tissue stage IV left hip decubitus ulcer - clean, no signs of active infection, 3 o' clock tracking, some granulation tissue, mild fibrinous tissue stage IV left buttock decubitus ulcer - clean, no signs of active infection, no tracking, some granulation tissue, mild fibrinous tissue stage IV right hip decubitus ulcer - clean, no signs of active infection, no tracking, some granulation tissue, moderate fibrinous tissue stage IV right buttock decubitus ulcer - clean, no signs of active infection, no tracking, some granulation tissue, moderate fibrinous tissue bilateral heel/foot wounds - no signs of active infection. multiple ulcers stage I-IV. right great toe deformity Xray - Exam is very limited as the patient is extremely contracted. There is suggestion of a soft tissue ulcer in the right hip region. There is evidence of extensive proliferative new bone formation. Unable to adequately assess for presence of osteophytosis or fracture. All wounds present upon admission. As for care, for now please was wounds, place dry guaze to wound bed, then cover with foam dressing or ABD 2-3 times per day. spoke with family at bedside. will hold on further debridement at this time. will reconsider as needed thank you for this consultation. will follow with reczane. Derek Dong Jun 15, 2018 17:06
[2018-06-15] MEDS: Morphine Sulfate 4mg/ml Inj IVP PRN (17:50)
[2018-06-15 20:00] VITALS: BP 120/76
[2018-06-16] VITALS: BP 110/70
[2018-06-16 04:00] VITALS: BP 110/70
[2018-06-16 08:00] VITALS: BP 103/56
--- NOTE | 2018-06-16 08:03 | General Progress Note ---
Assessment/Plan Assessment/Plan h/o Respiratory failure, CHF, HTN, [place], CAD, CHF, arrhythmia, COPD, pneumonia, GERD, CVA/TIA. PLAN terminal care oxygen morphine DNR Subjective ROS Limited/Unobtainable: Yes Allergies: Coded Allergies: No Known Allergies (Unverified , 03/07/17) Subjective on morphine off vent comfort care Objective Last 24 Hour Vital Signs Date Time Temp Pulse Resp B/P (MAP) Pulse Ox O2 Delivery O2 Flow Rate FiO2 06/16/18 07:27 T-piece 10.0 50 06/16/18 07:26 106 24 T-piece 50 06/16/18 07:26 100 T-piece 10.0 50 06/16/18 04:00 113 06/16/18 04:00 97.5 105 24 110/70 (83) 100 97.5 06/16/18 04:00 Mechanical Ventilator 06/16/18 01:04 100 T-piece 10.0 50 06/16/18 01:04 T-piece 10.0 50 06/16/18 00:00 97.6 106 26 110/70 (83) 100 97.6 06/16/18 00:00 105 06/16/18 00:00 Mechanical Ventilator 06/15/18 20:00 97.8 113 24 120/76 (91) 96 97.8 06/15/18 20:00 Mechanical Ventilator 06/15/18 20:00 107 06/15/18 18:50 100 T-piece 10.0 50 06/15/18 18:50 T-piece 10.0 50 06/15/18 18:50 109 26 T-piece 50 06/15/18 16:00 98.5 99 22 134/69 (90) 100 98.5 06/15/18 16:00 Mechanical Ventilator 06/15/18 15:22 102 06/15/18 13:00 97 T-piece 10.0 50 06/15/18 13:00 T-piece 10.0 50 06/15/18 12:00 98.6 101 20 132/79 (96) 99 98.6 06/15/18 12:00 Mechanical Ventilator 06/15/18 11:44 100 06/15/18 10:38 99 T-piece 10.0 50 06/15/18 10:38 T-piece 10.0 50 06/15/18 09:14 102 33 28 06/15/18 09:00 28 Intake and Output 06/15/18 06/16/18 19:00 07:00 Intake Total 675.0 ml Output Total 1080 ml 650 ml Balance -405.0 ml -650 ml Intake Free Water 50 ml IV Total 430.0 ml Tube Feeding 195 ml Output Urine Total 1000 ml 650 ml Stool Total 80 ml Height (Feet): 5 Height (Inches): 7.00 Weight (Pounds): 117 Objective WDWN withdrawn clear breath sounds bilaterally without rhonchi or wheeze [id number] without MRG NABS nontender no HSM no CCE contracted Erasmo David MD Jun 16, 2018 08:03
[2018-06-16] MEDS: Morphine Sulfate 4mg/ml Inj IVP PRN ×4 (10:27→18:47)
--- NOTE | 2018-06-16 10:57 | General Surgery Progress Note ---
General Surgery-Progress Note Subjective Additional Comments doing well. extubated. on humidified air comfortable. tracking with eyes. Objective Last 24 Hour Vital Signs Date Time Temp Pulse Resp B/P (MAP) Pulse Ox O2 Delivery O2 Flow Rate FiO2 06/16/18 10:27 97.5 06/16/18 08:00 Mechanical Ventilator 06/16/18 07:27 T-piece 10.0 50 06/16/18 07:26 106 24 T-piece 50 06/16/18 07:26 100 T-piece 10.0 50 06/16/18 04:00 113 06/16/18 04:00 97.5 105 24 110/70 (83) 100 97.5 06/16/18 04:00 Mechanical Ventilator 06/16/18 01:04 100 T-piece 10.0 50 06/16/18 01:04 T-piece 10.0 50 06/16/18 00:00 97.6 106 26 110/70 (83) 100 97.6 06/16/18 00:00 105 06/16/18 00:00 Mechanical Ventilator 06/15/18 20:00 97.8 113 24 120/76 (91) 96 97.8 06/15/18 20:00 Mechanical Ventilator 06/15/18 20:00 107 06/15/18 18:50 100 T-piece 10.0 50 06/15/18 18:50 T-piece 10.0 50 06/15/18 18:50 109 26 T-piece 50 06/15/18 16:00 98.5 99 22 134/69 (90) 100 98.5 06/15/18 16:00 Mechanical Ventilator 06/15/18 15:22 102 06/15/18 13:00 97 T-piece 10.0 50 06/15/18 13:00 T-piece 10.0 50 06/15/18 12:00 98.6 101 20 132/79 (96) 99 98.6 06/15/18 12:00 Mechanical Ventilator 06/15/18 11:44 100 I&O Intake and Output 06/15/18 06/16/18 19:00 07:00 Intake Total 675.0 ml Output Total 1080 ml 650 ml Balance -405.0 ml -650 ml Intake Free Water 50 ml IV Total 430.0 ml Tube Feeding 195 ml Output Urine Total 1000 ml 650 ml Stool Total 80 ml Dressing: saturated Wound: other Drains: other Cardiovascular: RSR Respiratory: clear Abdomen: soft, non-tender, present bowel sounds Extremities: other Plan Problems: (1) Sepsis Assessment & Plan: stage IV sacral decubitus ulcer - clean, no signs of active infection, down to coccyx, some granulation tissue, no significant fibrinous tissue stage IV left hip decubitus ulcer - clean, no signs of active infection, 3 o' clock tracking, some granulation tissue, mild fibrinous tissue stage IV left buttock decubitus ulcer - clean, no signs of active infection, no tracking, some granulation tissue, mild fibrinous tissue stage IV right hip decubitus ulcer - clean, no signs of active infection, no tracking, some granulation tissue, moderate fibrinous tissue stage IV right buttock decubitus ulcer - clean, no signs of active infection, no tracking, some granulation tissue, moderate fibrinous tissue bilateral heel/foot wounds - no signs of active infection. multiple ulcers stage I-IV. right great toe deformity Xray - Exam is very limited as the patient is extremely contracted. There is suggestion of a soft tissue ulcer in the right hip region. There is evidence of extensive proliferative new bone formation. Unable to adequately assess for presence of osteophytosis or fracture. All wounds present upon admission. As for care, for now please was wounds, place dry guaze to wound bed, then cover with foam dressing or ABD 2-3 times per day. spoke with family at bedside. will hold on further debridement at this time. will reconsider as needed thank you for this consultation. will follow with raul. Derek Dong Jun 16, 2018 10:57
[2018-06-16 12:00] VITALS: BP 97/60
[2018-06-16 16:00] VITALS: BP 145/92
[2018-06-16 20:00] VITALS: BP 104/64
--- NOTE | 2018-06-17 13:46 | Discharge Summary ---
Discharge Summary Discharge Summary _ DATE OF ADMISSION: 06/11/2018 DATE OF DISCHARGE: 2017 REASON FOR ADMISSION: 68 years old male with multiple chronic comorbidities, including ventilator dependent respiratory failure, tracheostomy status, dysphagia, G-tube, cardiomyopathy, COPD, history of CVA, encephalopathy, hypertension, history of CO, coronary artery disease, diabetes mellitus type 2, GERD, multiple decubitus ulcers, was sent from the senior living [facility] for evaluation due to anemia. Hemoglobin at the facility was 6.0 . Upon evaluation in emergency department patient was found to be tachycardic and with leukocytosis . Hemoglobin 6.9 hematocrit 23.6 Troponin negative .EKG revealed sinus tachycardia no acute ischemic changes. Chest x-ray revealed no acute cardiopulmonary pathology Urinalysis with evidence of UTI. Sodium 150, potassium 3.2 Patient admitted with diagnoses of sepsis, anemia ,GI bleeding, hypernatremia, hypokalemia ,urinary tract infection, respiratory failure, multiply pressure ulcers. CONSULTANTS: GI specialist Dr. Goodson surgery Dr. Dong [facility]SE: Patient admitted. Ventilator support and pulmonary toilet provided. GI consult was requested. Patient undergone upper endoscopy which revealed gastric ulcer, status post biopsy. Patient was started on PPI. Hemoglobin and hematocrit were closely monitored. Patient received 2 units of packed red blood cells. Prior to discharge hemoglobin 9.1 hematocrit 28.8. Stool for occult blood was negative. Patient was started on tube feeding. Strict aspiration/ reflux precautions were maintained. G-tube site care provided. Renal parameters and electrolytes were closely monitored. Free water provided via G-tube. Nephrotoxins were avoided and electrolytes were corrected as needed. Patient initially started on empiric antibiotics. Urine culture revealed Klebsiella pneumoniae carbapenem resistant. Blood culture were negative. Wound culture revealed Escherichia coli and Klebsiella pneumonia, likely colonized, since wounds did not show evidence of infection. Sputum culture revealed Pseudomonas MDR and Klebsiella pneumonia, likely colonized as well given that chest x-ray revealed no acute cardiopulmonary pathology. Stool for C. difficile was negative. Antibiotic regimen optimized based on culture and sensitivity. Patient was treated for urinary tract infection. Leukocytosis resolved. Venous duplex bilateral lower extremity was negative. Surgeon closely followed for multiply decubitus ulcers present on admission , including stage IV sacral decubitus ulcer, stage IV left hip decubitus ulcer, stage IV left buttock decubitus ulcer, stage IV right hip decubitus ulcer, stage IV right buttock decubitus ulcer, bilateral heel/foot wounds. According to surgical evaluation, wounds were more extensive than prior but without evidence of active infection. Right foot x-ray revealed no evidence of acute osteomyelitis. Wound care provided as per r surgery recommendations. Further goals of care were discussed with patient's sister, who decided on terminal care . Subsequently code status was changed to DO NOT RESUSCITATE/ DO NOT INTUBATE on 06/15. Patient subsequently was terminally extubated and placed on 50% via cool aerosol. All medications were discontinued. Comfort care provided. Patient started on morphine . Patient subsequently was transferred to senior living facility for terminal /comfort care. FINAL DIAGNOSES: sepsis anemia GI bleeding hypernatremia hypokalemia urinary tract infection with Klebsiella pneumonia, carbapenems resistant status post upper endoscopy with biopsy gastric ulcer multiply multiple decubitus ulcers, present on admission respiratory failure , ventilator dependent comfort care DISCHARGE MEDICATIONS: List of medication was sent accepting facility DISCHARGE INSTRUCTIONS: Patient was discharged to subacute facility for comfort care I have been assigned to dictate discharge summary for this account. I was not involved in the patient's management. Chiara Perales NP Jun 17, 2018 13:46
== END 2018-06-16 20:45 | DRG 720 ==
LOC: EDBD 14:22 → EMR 14:31 → ICU 15:30 → EDBEDREQ 16:05 → 2W 06-12 15:30
PROC: 5A1955Z Respiratory Ventilation, Greater than 96 Consecutive Hours (ICD-10-PCS; 2018-06-11)
PROC: 30233N1 Transfusion of Nonautologous Red Blood Cells into Peripheral Vein, Percutaneous Approach (ICD-10-PCS; 2018-06-11)
PROC: 0DB68ZX Excision of Stomach, Via Natural or Artificial Opening Endoscopic, Diagnostic (ICD-10-PCS; principal; 2018-06-12 14:00)
DX: A41.9 Sepsis, unspecified organism (principal); Z99.11 Dependence on respirator [ventilator] status; L89.154 Pressure ulcer of sacral region, stage 4; J96.10 Chronic respiratory failure, unspecified whether with hypoxia or hypercapnia; E46 Unspecified protein-calorie malnutrition; Z43.0 Encounter for attention to tracheostomy; E87.0 Hyperosmolality and hypernatremia; L89.324 Pressure ulcer of left buttock, stage 4; Z51.5 Encounter for palliative care; Z66 Do not resuscitate; L89.214 Pressure ulcer of right hip, stage 4; L89.224 Pressure ulcer of left hip, stage 4; K92.2 Gastrointestinal hemorrhage, unspecified; L89.314 Pressure ulcer of right buttock, stage 4; D64.9 Anemia, unspecified; E87.6 Hypokalemia; N39.0 Urinary tract infection, site not specified; B96.1 Klebsiella pneumoniae [K. pneumoniae] as the cause of diseases classified elsewhere; Z16.39 Resistance to other specified antimicrobial drug; K25.9 Gastric ulcer, unspecified as acute or chronic, without hemorrhage or perforation; Z43.1 Encounter for attention to gastrostomy; I42.9 Cardiomyopathy, unspecified; J44.9 Chronic obstructive pulmonary disease, unspecified; Z86.73 Personal history of transient ischemic attack (TIA), and cerebral infarction without residual deficits; I49.9 Cardiac arrhythmia, unspecified; K21.9 Gastro-esophageal reflux disease without esophagitis; I11.0 Hypertensive heart disease with heart failure; I50.9 Heart failure, unspecified; I07.9 Rheumatic tricuspid valve disease, unspecified; Z95.810 Presence of automatic (implantable) cardiac defibrillator; I25.2 Old myocardial infarction; R13.10 Dysphagia, unspecified; Z68.1 Body mass index [BMI] 19.9 or less, adult
CPT/HCPCS: 36415; 36600; 71045; 72170; 80048; 80053; 80150; 80202; 81003; 82270; 82550; 82553; 82803; 83605; 84484; 85007; 85025; 85610; 85730; 86850; 86900; 86901; 86920; 87040; 87070; 87081; 87086; 87181; 87205; 87324; 93005; 93970; 94002; 94003; 94150; 94664; 94760; J2405; J8499

== ENCOUNTER 2018-06-29 16:31 | Inpatient (IN) | payer OTHER ==
[~2018-06-29] VITALS: Ht 177.8 cm; Wt 54.1 kg
[2018-06-29] VITALS (10 sets, daily range): BP systolic 85–108; BP diastolic 52–67
[~2018-06-29 16:31] MED LIST changes: +PRO-STAT AWC L887 ML GT
[2018-06-29] MEDS ORDERED: Cefepime HCl 1 GM in NS 55 ML IV SCH (16:45)
[2018-06-29] MEDS ORDERED: NS 1000ml 2,200 ML IVLG ONE (18:00)
[2018-06-29 18:05] LABS: BASOPHILS % (AUTO) 1.5 % (0.0-2.0); EOSINOPHILS % (AUTO) 4.8 % (0.0-3.0); HEMATOCRIT 32.3 % (42.0-52.0); LYMPHOCYTES % (AUTO) 15.5 % (20.0-45.0); MEAN CORPUSCULAR VOLUME 92 FL (80-99); MONOCYTES % (AUTO) 9.9 % (1.0-10.0); NEUTROPHILS % (AUTO) 68.2 % (45.0-75.0); PLATELET COUNT 653 K/UL (150-450); RED BLOOD COUNT 3.51 M/UL (4.70-6.10); RED CELL DISTRIBUTION WIDTH 17.5 % (11.6-14.8); WHITE BLOOD COUNT 16.3 K/UL (4.8-10.8)
[2018-06-29 18:24] LABS: APPEARANCE,URINE SLIGHTLY CLOUDY; BILIRUBIN, URINE NEGATIVE (NEGATIVE); GLUCOSE, URINE (UA) NEGATIVE (NEGATIVE); KETONES,URINE 1+ (NEGATIVE); LEUKOCYTE ESTERASE ,URINE 3+ (NEGATIVE); NITRITE,URINE NEGATIVE (NEGATIVE); PH,URINE 6 (4.5-8.0); PROTEIN,URINE 2+ (NEGATIVE); UROBILINOGEN,URINE NORMAL MG/DL (0.0-1.0)
[2018-06-29 18:27] LABS: COLOR,URINE YELLOW
[2018-06-29 18:41] LABS: ALANINE AMINOTRANSFERASE 9 U/L (12-78); ALBUMIN 0.8 G/DL (3.4-5.0); ALBUMIN/GLOBULIN RATIO 0.2 (1.0-2.7); ALKALINE PHOSPHATASE 160 U/L (46-116); ANION GAP 10 mmol/L (5-15); ASPARTATE AMINO TRANSFERASE 20 U/L (15-37); BILIRUBIN,TOTAL 0.1 MG/DL (0.2-1.0); BLOOD UREA NITROGEN 27 mg/dL (7-18); CALCIUM 7.1 MG/DL (8.5-10.1); CARBON DIOXIDE 21 MMOL/L (21-32); CHLORIDE 115 MMOL/L (98-107); CREATINE KINASE 45 U/L (26-308); CREATININE 0.5 MG/DL (0.55-1.30); POTASSIUM 4.2 MMOL/L (3.5-5.1); SODIUM 146 MMOL/L (136-145)
[2018-06-29] MEDS ORDERED: Vancomycin 1 GM in D5W 275 ML IVPB ONE (19:00)
[2018-06-29] MEDS ORDERED: HIBICLENS118 ML TP (20:38)
--- NOTE | 2018-06-29 22:13 | Emergency Room Report ---
History of Present Illness General Chief Complaint: Abnormal Labs Source: Medical Record Present Illness HPI Mr. Wells is 58 yo male who presents from SNF for elevated WBC and UTI. He is nonverbal. Ventilator and trach dependent. Allergies: Coded Allergies: No Known Allergies (Unverified , 03/07/17) Patient History Limited by: language barrier Past Medical History: old chart reviewed Past Surgical History: other - [facility] Documentation-[facility] Past Medical History: No History, Except For Hx Cardiac Problems: Yes - Ventricular tachycardia, Atrial Fibrillation, Heart Failure Hx Hypertension: Yes Hx Pacemaker: Yes - Defibrillator implant left chest Hx Asthma: Yes Hx COPD: Yes Hx Diabetes: Yes - TYPE 2 DYSPHAGIA APHAGIA ANEMIA ELIPEPSY SEPSIS Hx Cancer: No Hx Gastrointestinal Problems: Yes - dysphagia Hx Neurological Problems: Yes - Encephalopathy, Cerebrovascular disease Hx Cerebrovascular Accident: Yes Hx Transient Ischemic Attacks: Yes Hx Dementia: Yes Hx Seizures: Yes Hx Aphasia: Yes Review of Systems All Other Systems: limited Physical Exam Vital Signs Date Time Temp Pulse Resp B/P (MAP) Pulse Ox O2 Delivery O2 Flow Rate FiO2 06/29/18 16:25 97.6 99 20 90/60 96 Mechanical Ventilator 40 97.5 Sp02 EP Interpretation: reviewed, normal General Appearance: cachetic, Chronically Ill Eyes: bilateral eye normal inspection, bilateral eye PERRL ENT: dry mucus membranes Neck: normal inspection, full range of motion, tracheotomy Respiratory: lungs clear, normal breath sounds, no rhonchi, no respiratory distress Cardiovascular #1: normal peripheral pulses, regular rate, rhythm, no edema Gastrointestinal: non tender, soft, no guarding Musculoskeletal: other - contracted extremities Psychiatric: other - flat affect nonverbal Procedures Critical Care Time Critical Care Time 35 minutes of critical care time excluding procedures were used in the care of the patient. I reviewed labs and imaging. I reviewed previous electronic medical record. I updated family members. I spoke with multiple consultants. Patient required multiple reassessments. Medical Decision Making Diagnostic Impression: Primary Impression: Septic shock Additional Impression: UTI (urinary tract infection) ER Course Mr. Wells is admitted to SDU for UTI septic shock. I consulted both Dr. Moses and Dr. Box. Admitted in fair condition. Hypotension did resolve with IV fluid therapy. Broad spectrum antibiotics initiated in ED.. Last Vital Signs Date Time Temp Pulse Resp B/P (MAP) Pulse Ox O2 Delivery O2 Flow Rate FiO2 06/29/18 21:22 96 21 40 06/29/18 20:00 105/63 100 Mechanical Ventilator 06/29/18 19:30 97.4 97.4 Referrals: Shani Moses MD (PCP) TABITHA GEE Jun 29, 2018 22:13
[2018-06-30] VITALS (20 sets, daily range): BP systolic 18–133; BP diastolic 36–80
[2018-06-30] MEDS ORDERED: Albuterol/Ipratropium 3ml neb HHN PRN ×2 (02:30→18:30)
[2018-06-30] MEDS ORDERED: Morphine Sulfate 2mg/ml Inj(IV/IM USE ONLY) IVP PRN ×3 (02:30→18:27)
[2018-06-30] MEDS ORDERED: Miralax 17gm pkt ORAL PRN ×2 (02:30→18:27)
[2018-06-30] MEDS: Cefepime HCl 2 GM in D5W 110 ML IV SCH ×2 (06:00→18:12)
[2018-06-30] MEDS ORDERED: Vancomycin 1gm in D5W 275ml IVPB SCH (07:00)
--- NOTE | 2018-06-30 08:46 | Diagnostic Imaging Report ---
Indication: Dyspnea Technique: One view of the chest Comparison: 06/11/2018 Findings: Lungs and pleural spaces are clear. Previously demonstrated interstitial disease is no longer evident. The lungs are hyperinflated. The heart size is normal. There is a left chest bifocal pacemaker. There is a tracheostomy Impression: Hyperinflation, consistent with COPD No acute process Other findings as noted
[2018-06-30] MEDS ORDERED: Heparin 5000 units/ml inj SUBQ SCH (09:00)
--- NOTE | 2018-06-30 10:44 | Consultation ---
History of Present Illness General Date patient seen: Jun 30, 2018 Chief Complaint: Abnormal Labs Reason for Consultation: UTI Present Illness HPI Mr. Wells is a 58 yo male who presented from a senior care with UTI. Per notes (patient on Vent and trached) he was at [facility] when he was found to have fever and and UTI. He has a G tube and tierney catheter. In the ED he leukocytosis of 16, low grade fever and positive UA. He was admitted and started on vancomycin and cefepime. Urine culture is positive for GNR. PMHx - Ventricular tachycardia - Atrial Fibrillation - Heart Failure with ICD - CVD - Dysphagia with G-tube - Vent dependent PSHx Unable to obtain trached SocHx Roxie in SNF FamHX Unable to obtain trached Allergies: Coded Allergies: No Known Allergies (Unverified , 03/07/17) Medication History Scheduled Amino Acids/Protein Hydrolys (Pro-Stat Awc Liquid), 30 ML GT TID, (Reported) Amiodarone Hcl (Amiodarone Hcl), 200 MG GT DAILY, (Reported) Carvedilol* (Carvedilol*), 6.25 MG GT EVERY 12 HOURS, (Reported) Epoetin Rehan (Epogen), 10,000 UNIT SUBQ 3XW, (Reported) Folic Acid* (Folic Acid*), 1 MG GT DAILY, (Reported) Heparin Sod (Porcine) (Heparin Sodium*), 5,000 UNITS SUBQ EVERY 12 HOURS, ( Reported) Ipratropium/Albuterol Sulfate (DuoNeb 0.5-3(2.5)mg/3ml), 3 ML HHN Q6HR, ( Reported) Levetiracetam* (Levetiracetam*), 500 MG GT Q12HR, (Reported) Omeprazole (Omeprazole), 40 MG GT DAILY, (Reported) Tramadol Hcl* (Ultram*), 50 MG GT DAILY, (Reported) Scheduled PRN Albuterol Sulfate* (Albuterol Sulfate Hhn*), 3 ML INH Q3HR PRN for Shortness of Breath, (Reported) Hydrocodone Bit/Acetaminophen 5-325* ([place] 5-325 Tablet*), 1 TAB GT Q4H PRN for Moderate Pain (Pain Scale 4-6), (Reported) Lorazepam* (Ativan*), 0.5 MG GT Q6HR PRN for For Anxiety, (Reported) Nitroglycerin (Nitrostat), 0.4 MG SL Q5M X3 DOSES PRN for CHEST PAIN, (Reported) Ondansetron* (Zofran*), 4 MG IM Q6H PRN for Nausea & Vomiting, (Reported) Polyethylene Glycol 3350* (Miralax*), 17 GM GT DAILY PRN for Constipation, ( Reported) Miscellaneous Medications Chlorhexidine Gluconate* (Hibiclens*), 118 ML TP, (Reported) Patient History Healthcare decision maker Resuscitation status Do Not Resuscitate Advanced Directive on File Yes Review of Systems ROS Narrative Unable to obtain as patient on vent Physical Exam Last 24 Hour Vital Signs Date Time Temp Pulse Resp B/P (MAP) Pulse Ox O2 Delivery O2 Flow Rate FiO2 06/30/18 10:00 30 06/30/18 08:52 102 19 30 06/30/18 08:00 40 06/30/18 07:00 22 102/43 (62) 100 06/30/18 06:55 101 16 40 06/30/18 06:00 97.7 97 22 104/40 (61) 100 97.7 06/30/18 05:28 97.7 06/30/18 05:25 104 20 40 06/30/18 05:00 103 22 91/39 (56) 100 06/30/18 04:29 100.2 06/30/18 04:00 100.2 105 23 127/50 (75) 100 100.2 06/30/18 04:00 40.0 40 06/30/18 04:00 Mechanical Ventilator 40.0 06/30/18 04:00 102 06/30/18 03:00 103 22 108/40 (62) 100 06/30/18 03:00 105 22 40 06/30/18 02:00 101 23 96/40 (58) 100 06/30/18 01:00 102 20 40 06/30/18 01:00 100 23 104/39 (60) 100 06/30/18 00:00 99.2 100 23 81/48 (59) 100 99.2 06/30/18 00:00 102 06/29/18 23:00 99.2 106 21 102/64 (77) 100 99.2 06/29/18 23:00 Mechanical Ventilator 40.0 06/29/18 22:45 97.4 115 19 108/63 100 Mechanical Ventilator 40 97.4 06/29/18 22:45 97.4 115 19 108/63 100 Mechanical Ventilator 40 97.4 06/29/18 22:37 106 19 40 06/29/18 21:22 96 21 40 06/29/18 20:00 92 21 105/63 100 Mechanical Ventilator 40 06/29/18 19:30 97.4 94 21 104/67 100 Mechanical Ventilator 40 97.4 06/29/18 19:00 97 22 88/53 100 Mechanical Ventilator 06/29/18 18:53 92 17 40 06/29/18 18:30 93 22 88/53 100 Mechanical Ventilator 06/29/18 18:00 95 19 88/52 100 Mechanical Ventilator 06/29/18 17:30 96 19 86/53 100 Mechanical Ventilator 06/29/18 17:00 98 19 85/59 100 Mechanical Ventilator 06/29/18 16:44 99 16 40 06/29/18 16:32 97.5 98 20 85/59 98 Mechanical Ventilator 40 97.5 06/29/18 16:32 40 06/29/18 16:25 97.6 99 20 90/60 96 Mechanical Ventilator 40 97.5 Intake and Output 06/29/18 06/30/18 19:00 07:00 Intake Total 190 ml Output Total 290 ml Balance -100 ml Intake Free Water 50 ml Tube Feeding 80 ml Other 60 ml Output Urine Total 290 ml # Voids 1 # Bowel Movements 2 Laboratory Tests Test 06/29/18 17:30 06/29/18 17:40 White Blood Count 16.3 K/UL (4.8-10.8) H Red Blood Count 3.51 M/UL (4.70-6.10) L Hemoglobin 10.0 G/DL (14.2-18.0) L Hematocrit 32.3 % (42.0-52.0) L Mean Corpuscular Volume 92 FL (80-99) Mean Corpuscular Hemoglobin 28.5 PG (27.0-31.0) Mean Corpuscular Hemoglobin Concent 31.0 G/DL (32.0-36.0) L Red Cell Distribution Width 17.5 % (11.6-14.8) H Platelet Count 653 K/UL (150-450) H Mean Platelet Volume 5.2 FL (6.5-10.1) L Neutrophils (%) (Auto) 68.2 % (45.0-75.0) Lymphocytes (%) (Auto) 15.5 % (20.0-45.0) L Monocytes (%) (Auto) 9.9 % (1.0-10.0) Eosinophils (%) (Auto) 4.8 % (0.0-3.0) H Basophils (%) (Auto) 1.5 % (0.0-2.0) Sodium Level 146 MMOL/L (136-145) H Potassium Level 4.2 MMOL/L (3.5-5.1) Chloride Level 115 MMOL/L (98-107) H Carbon Dioxide Level 21 MMOL/L (21-32) Anion Gap 10 mmol/L (5-15) Blood Urea Nitrogen 27 mg/dL (7-18) H Creatinine 0.5 MG/DL (0.55-1.30) L Estimat Glomerular Filtration Rate > 60 mL/min (>60) Glucose Level 73 MG/DL (74-106) L Lactic Acid Level 2.40 mmol/L (0.4-2.0) H Calcium Level 7.1 MG/DL (8.5-10.1) L Total Bilirubin 0.1 MG/DL (0.2-1.0) L Aspartate Amino Transf (AST/SGOT) 20 U/L (15-37) Alanine Aminotransferase (ALT/SGPT) 9 U/L (12-78) L Alkaline Phosphatase 160 U/L (46-116) H Total Creatine Kinase 45 U/L (26-308) Troponin I 0.000 ng/mL (0.000-0.056) Total Protein 5.4 G/DL (6.4-8.2) L Albumin 0.8 G/DL (3.4-5.0) L Globulin 4.6 g/dL Albumin/Globulin Ratio 0.2 (1.0-2.7) L Urine Color Yellow Urine Appearance Slightly cloudy Urine pH 6 (4.5-8.0) Urine Specific Shanks 1.010 (1.005-1.035) Urine Protein 2+ (NEGATIVE) H Urine Glucose (UA) Negative (NEGATIVE) Urine Ketones 1+ (NEGATIVE) H Urine Occult Blood 5+ (NEGATIVE) H Urine Nitrite Negative (NEGATIVE) Urine Bilirubin Negative (NEGATIVE) Urine Urobilinogen Normal MG/DL (0.0-1.0) Urine Leukocyte Esterase 3+ (NEGATIVE) H Urine RBC 5-10 /HPF (0 - 0) H Urine WBC 15-20 /HPF (0 - 0) H Urine Squamous Epithelial Cells None /LPF (NONE/OCC) Urine Calcium Oxalate Crystals Few /LPF (NONE) Urine Amorphous Sediment Few /LPF (NONE) H Urine Bacteria Moderate /HPF (NONE) H Microbiology Date/Time Source Procedure Growth Status 06/29/18 17:40 Urine,Clean Catch Urine Culture - Preliminary Gram Negative Bacillus 1 Resulted Height (Feet): 5 Height (Inches): 10.00 Weight (Pounds): 135 Medications Current Medications Medications (Trade) Dose Ordered Sig/Tameka Route PRN Reason Start Time Stop Time Status Last Admin Dose Admin Acetaminophen (Tylenol) 650 mg Q4H PRN ORAL fever 06/30/18 02:30 07/30/18 02:29 06/30/18 04:29 Albuterol/ Ipratropium (Albuterol/ Ipratropium) 3 ml Q4H PRN HHN Shortness of Breath 06/30/18 02:30 07/05/18 02:29 Cefepime HCl 2 gm/ Dextrose 110 ml @ 220 mls/hr Q12H IV 06/30/18 06:00 07/07/18 05:59 06/30/18 06:00 Heparin Sodium (Porcine) (Heparin 5000 units/ml) 5,000 units EVERY 12 HOURS SUBQ 06/30/18 09:00 07/30/18 08:59 06/30/18 09:13 Morphine Sulfate (Morphine Sulfate) 2 mg Q4H PRN IVP Moderate Pain (Pain Scale 4-6) 06/30/18 02:30 07/07/18 02:29 Ondansetron HCl (Zofran) 4 mg Q6H PRN IVP Nausea & Vomiting 06/30/18 02:30 07/30/18 02:29 Phenazopyridine HCl (Pyridium) 100 mg DAILY PRN ORAL dysuria 06/30/18 02:30 07/30/18 02:29 Polyethylene Glycol (Miralax) 17 gm DAILYPRN PRN ORAL Constipation 06/30/18 02:30 07/30/18 02:29 Temazepam (Restoril) 15 mg HSPRN PRN ORAL Insomnia 06/30/18 02:30 07/07/18 02:29 Vancomycin HCl (Vanco rx to dose) 1 ea DAILY PRN MISC Per rx protocol 06/30/18 03:00 07/30/18 02:59 Vancomycin HCl 1 gm/Dextrose 275 ml @ 183.708 mls/hr Q12H IVPB 06/30/18 07:00 07/05/18 06:59 06/30/18 09:13 Objective Narrative Gen: NAD, Trached on vent HEENT: NCAT, MMM, EOMI, PERRL, No LAD LUNGS: CTAB, No W/C, No Accessory muscle use CARDS: RRR, S1, S2, No M/R/G, ABD: Soft, NT, ND, No R/G, + BS, No HSM, No Masses, PEG Some erosion of skin : Deferred Ext: C/C/E, Pulses 2+ B/L (DP, Rad) NEURO: Blinks eyes. Does not move ext. SKIN: warm/dry, No rashes, multiple bed sores. Buttock region (some down to bone ), feet and knees. No surrounding erythema. Assessment/Plan Assessment/Plan 58 yo male who presented from a senior care vent dependent p/w with UTI. # Sepsis Likely secondary to UTI - f/u urine culture and blood cultures # Fever Now resolved # Multiple large bed sores. - Some down to bone - no surrounding cellulitis - Needs surgical evaluation - Ventricular tachycardia - Atrial Fibrillation - Heart Failure with ICD - CVD - Dysphagia with G-tube - Vent dependent PLAN: - Monitor clinically - Continue Cefepime #1/7 - D/C vancomycin #1 - Monitor CBC and temps - Wound care - Recommend surgical evaluation - Supportive care Thank you for consulting us for the care of this patient. We will continue to follow with you. Fausto Rueda M.D. Jun 30, 2018 10:44
--- NOTE | 2018-06-30 13:49 | Pulmonolgy Critical Care Note ---
Critical Care - Asmt/Plan Problems: (1) Acute on chronic respiratory failure (2) Septic shock (3) Atrial fibrillation (4) EF of 30 Respiratory: monitor respiratory rate, adjust FIO2, CXR Cardiac: continue to monitor HR/BP Renal: F/U I&O Infectious Disease: check cultures Gastrointestinal: continue feedings/current rate Endocrine: monitor blood sugar, check TSH Hematologic: monitor H/H, transfuse if hgb<8.5 Neurologic: PRN Morphine, keep patient comfortable Affect: PRN ativan Prophylaxis: Protonix Notes Reviewed: cardio Critical Care - Objective Last 24 Hour Vital Signs Date Time Temp Pulse Resp B/P (MAP) Pulse Ox O2 Delivery O2 Flow Rate FiO2 06/30/18 12:55 102 20 30 06/30/18 11:00 103 17 30 06/30/18 10:00 103 17 92/45 (61) 100 06/30/18 10:00 30 06/30/18 09:00 101 17 110/44 (66) 100 06/30/18 08:52 102 19 30 06/30/18 08:00 98.8 100 16 104/46 (65) 100 98.8 06/30/18 08:00 40 06/30/18 07:00 22 102/43 (62) 100 06/30/18 06:55 101 16 40 06/30/18 06:00 97.7 97 22 104/40 (61) 100 97.7 06/30/18 05:28 97.7 06/30/18 05:25 104 20 40 06/30/18 05:00 103 22 91/39 (56) 100 06/30/18 04:29 100.2 06/30/18 04:00 100.2 105 23 127/50 (75) 100 100.2 06/30/18 04:00 40.0 40 06/30/18 04:00 Mechanical Ventilator 40.0 06/30/18 04:00 102 06/30/18 03:00 103 22 108/40 (62) 100 06/30/18 03:00 105 22 40 06/30/18 02:00 101 23 96/40 (58) 100 06/30/18 01:00 102 20 40 06/30/18 01:00 100 23 104/39 (60) 100 06/30/18 00:00 99.2 100 23 81/48 (59) 100 99.2 06/30/18 00:00 102 06/29/18 23:00 99.2 106 21 102/64 (77) 100 99.2 06/29/18 23:00 Mechanical Ventilator 40.0 06/29/18 22:45 97.4 115 19 108/63 100 Mechanical Ventilator 40 97.4 06/29/18 22:45 97.4 115 19 108/63 100 Mechanical Ventilator 40 97.4 06/29/18 22:37 106 19 40 06/29/18 21:22 96 21 40 06/29/18 20:00 92 21 105/63 100 Mechanical Ventilator 40 06/29/18 19:30 97.4 94 21 104/67 100 Mechanical Ventilator 40 97.4 06/29/18 19:00 97 22 88/53 100 Mechanical Ventilator 06/29/18 18:53 92 17 40 06/29/18 18:30 93 22 88/53 100 Mechanical Ventilator 06/29/18 18:00 95 19 88/52 100 Mechanical Ventilator 06/29/18 17:30 96 19 86/53 100 Mechanical Ventilator 06/29/18 17:00 98 19 85/59 100 Mechanical Ventilator 06/29/18 16:44 99 16 40 06/29/18 16:32 97.5 98 20 85/59 98 Mechanical Ventilator 40 97.5 06/29/18 16:32 40 06/29/18 16:25 97.6 99 20 90/60 96 Mechanical Ventilator 40 97.5 Status: sedated Condition: critical Neck: full ROM Heart: HR/BP stable, HR/BP unstable Abdomen: soft, non-tender Extremities: no C/C/E Micro: Microbiology Date/Time Source Procedure Growth Status 06/29/18 17:40 Urine,Clean Catch Urine Culture - Preliminary Gram Negative Bacillus 1 Resulted 06/29/18 23:00 Sacral Wound Gram Stain - Final Resulted 06/29/18 23:00 Sacral Wound Wound Culture Pending Resulted Accucheck: 110 Critical Care - Subjective ROS Limited/Unobtainable: Yes Condition: critical EKG Rhythm: Sinus Rhythm FI02: 30 Vent Support Breath Rate: 16 Vent Support Mode: AC Vent Tidal Volume: 600 Sputum Amount: Small PEEP: 5.0 PIP: 22 Tube Feeding Amount: 30 I&O: Intake and Output 06/29/18 06/30/18 19:00 07:00 Intake Total 190 ml Output Total 290 ml Balance -100 ml Intake Free Water 50 ml Tube Feeding 80 ml Other 60 ml Output Urine Total 290 ml # Voids 1 # Bowel Movements 2 Labs: Laboratory Tests Test 06/29/18 17:30 06/29/18 17:40 White Blood Count 16.3 K/UL (4.8-10.8) H Red Blood Count 3.51 M/UL (4.70-6.10) L Hemoglobin 10.0 G/DL (14.2-18.0) L Hematocrit 32.3 % (42.0-52.0) L Mean Corpuscular Volume 92 FL (80-99) Mean Corpuscular Hemoglobin 28.5 PG (27.0-31.0) Mean Corpuscular Hemoglobin Concent 31.0 G/DL (32.0-36.0) L Red Cell Distribution Width 17.5 % (11.6-14.8) H Platelet Count 653 K/UL (150-450) H Mean Platelet Volume 5.2 FL (6.5-10.1) L Neutrophils (%) (Auto) 68.2 % (45.0-75.0) Lymphocytes (%) (Auto) 15.5 % (20.0-45.0) L Monocytes (%) (Auto) 9.9 % (1.0-10.0) Eosinophils (%) (Auto) 4.8 % (0.0-3.0) H Basophils (%) (Auto) 1.5 % (0.0-2.0) Sodium Level 146 MMOL/L (136-145) H Potassium Level 4.2 MMOL/L (3.5-5.1) Chloride Level 115 MMOL/L (98-107) H Carbon Dioxide Level 21 MMOL/L (21-32) Anion Gap 10 mmol/L (5-15) Blood Urea Nitrogen 27 mg/dL (7-18) H Creatinine 0.5 MG/DL (0.55-1.30) L Estimat Glomerular Filtration Rate > 60 mL/min (>60) Glucose Level 73 MG/DL (74-106) L Lactic Acid Level 2.40 mmol/L (0.4-2.0) H Calcium Level 7.1 MG/DL (8.5-10.1) L Total Bilirubin 0.1 MG/DL (0.2-1.0) L Aspartate Amino Transf (AST/SGOT) 20 U/L (15-37) Alanine Aminotransferase (ALT/SGPT) 9 U/L (12-78) L Alkaline Phosphatase 160 U/L (46-116) H Total Creatine Kinase 45 U/L (26-308) Troponin I 0.000 ng/mL (0.000-0.056) Total Protein 5.4 G/DL (6.4-8.2) L Albumin 0.8 G/DL (3.4-5.0) L Globulin 4.6 g/dL Albumin/Globulin Ratio 0.2 (1.0-2.7) L Urine Color Yellow Urine Appearance Slightly cloudy Urine pH 6 (4.5-8.0) Urine Specific Edgar 1.010 (1.005-1.035) Urine Protein 2+ (NEGATIVE) H Urine Glucose (UA) Negative (NEGATIVE) Urine Ketones 1+ (NEGATIVE) H Urine Occult Blood 5+ (NEGATIVE) H Urine Nitrite Negative (NEGATIVE) Urine Bilirubin Negative (NEGATIVE) Urine Urobilinogen Normal MG/DL (0.0-1.0) Urine Leukocyte Esterase 3+ (NEGATIVE) H Urine RBC 5-10 /HPF (0 - 0) H Urine WBC 15-20 /HPF (0 - 0) H Urine Squamous Epithelial Cells None /LPF (NONE/OCC) Urine Calcium Oxalate Crystals Few /LPF (NONE) Urine Amorphous Sediment Few /LPF (NONE) H Urine Bacteria Moderate /HPF (NONE) H Shani Moses MD Jun 30, 2018 13:49
--- NOTE | 2018-06-30 15:35 | Cardiology Report ---
APPROVED REPORT EKG Measurement Heart [id number] DC [id number] Sinus rhythm with short DC Incomplete left bundle branch block Prolonged QT Abnormal ECG
[2018-06-30] MEDS: Vancomycin 1 GM in D5W 275 ML IVPB SCH (19:00)
[2018-06-30] MEDS: Carvedilol 6.25mg Tab GT SCH (20:35)
[2018-06-30] MEDS: levETIRAcetam 500mg/5ml Liquid GT SCH (20:52)
[2018-06-30] MEDS: Heparin 5000 units/ml inj SUBQ SCH (20:54)
[2018-06-30] MEDS ORDERED: Vancomycin 1 GM in D5W 275 ML IVPB SCH (21:00)
[2018-06-30] MEDS ORDERED: Carvedilol 6.25mg Tab GT SCH (21:00)
[2018-06-30] MEDS ORDERED: levETIRAcetam 500mg/5ml Liquid GT SCH (21:00)
[2018-07-01] VITALS: BP 109/48
[2018-07-01] MEDS ORDERED: Vancomycin 1 GM in D5W 275 ML IV SCH (00:30)
[2018-07-01 04:00] VITALS: BP 115/53
[2018-07-01] MEDS ORDERED: Cefepime HCl 2 GM in D5W 110 ML IV SCH (06:00)
[2018-07-01 06:37] LABS: BASOPHILS % (AUTO) 0.5 % (0.0-2.0); EOSINOPHILS % (AUTO) 3.9 % (0.0-3.0); HEMATOCRIT 27.9 % (42.0-52.0); HEMOGLOBIN 8.3 G/DL (14.2-18.0); LYMPHOCYTES % (AUTO) 11.4 % (20.0-45.0); MEAN CORPUSCULAR VOLUME 90 FL (80-99); MONOCYTES % (AUTO) 8.8 % (1.0-10.0); NEUTROPHILS % (AUTO) 75.3 % (45.0-75.0); PLATELET COUNT 614 K/UL (150-450); RED CELL DISTRIBUTION WIDTH 17.8 % (11.6-14.8); WHITE BLOOD COUNT 13.6 K/UL (4.8-10.8)
[2018-07-01] MEDS: Vancomycin 1 GM in D5W 275 ML IVPB SCH (06:37)
[2018-07-01 06:59] LABS: PHOSPHORUS 2.2 MG/DL (2.5-4.9)
[2018-07-01 07:00] LABS: ALANINE AMINOTRANSFERASE 8 U/L (12-78); ALBUMIN 0.9 G/DL (3.4-5.0); ALBUMIN/GLOBULIN RATIO 0.2 (1.0-2.7); ALKALINE PHOSPHATASE 188 U/L (46-116); ANION GAP 7 mmol/L (5-15); ASPARTATE AMINO TRANSFERASE 16 U/L (15-37); BILIRUBIN,TOTAL 0.3 MG/DL (0.2-1.0); BLOOD UREA NITROGEN 22 mg/dL (7-18); CARBON DIOXIDE 25 MMOL/L (21-32); CHLORIDE 111 MMOL/L (98-107); CREATININE 0.8 MG/DL (0.55-1.30); POTASSIUM 3.7 MMOL/L (3.5-5.1); SODIUM 143 MMOL/L (136-145)
[2018-07-01 08:00] VITALS: BP 116/61
[2018-07-01] MEDS: levETIRAcetam 500mg/5ml Liquid GT SCH ×2 (08:49→20:15)
[2018-07-01] MEDS: Carvedilol 6.25mg Tab GT SCH (08:50)
[2018-07-01] MEDS: Heparin 5000 units/ml inj SUBQ SCH ×2 (08:50→20:16)
[2018-07-01] MEDS ORDERED: Amiodarone 200mg tab GT SCH ×2 (09:00→13:50)
[2018-07-01 12:00] VITALS: BP 104/49
--- NOTE | 2018-07-01 12:05 | Infectious Diseases Prog Note ---
Assessment/Plan Assessment/Plan 58 yo male who presented from a care home vent dependent p/w with UTI. # Sepsis Likely secondary to UTI - f/u urine culture and blood cultures - GNR # Fever Now resolved # Multiple large bed sores. - Some down to bone - no surrounding cellulitis - Needs surgical evaluation - Ventricular tachycardia - Atrial Fibrillation - Heart Failure with ICD - CVD - Dysphagia with G-tube - Vent dependent PLAN: - Monitor clinically - Continue Cefepime #2/7 - D/C vancomycin #1 - Monitor CBC and temps - Wound care - Recommend surgical evaluation - Supportive care Thank you for consulting us for the care of this patient. We will continue to follow with you. Subjective Allergies: Coded Allergies: No Known Allergies (Unverified , 03/07/17) Subjective Patient not verbal on vent Blinks eyes Na cute events Objective Vital Signs Last 24 Hour Vital Signs Date Time Temp Pulse Resp B/P (MAP) Pulse Ox O2 Delivery O2 Flow Rate FiO2 07/01/18 11:03 98 20 30 07/01/18 09:13 104 19 30 07/01/18 08:50 104 116/61 07/01/18 08:05 104 07/01/18 08:00 30 07/01/18 08:00 Mechanical Ventilator 07/01/18 08:00 98.1 106 22 116/61 (79) 100 98.1 07/01/18 06:53 113 22 30 07/01/18 06:26 Mechanical Ventilator 07/01/18 05:14 116 23 30 07/01/18 04:00 109 07/01/18 04:00 30 07/01/18 04:00 Mechanical Ventilator 40.0 07/01/18 04:00 97.7 105 12 115/53 (73) 100 97.7 07/01/18 03:23 111 22 30 07/01/18 01:17 112 20 30 07/01/18 00:00 Mechanical Ventilator 40.0 07/01/18 00:00 111 07/01/18 00:00 30 07/01/18 00:00 98.4 115 12 109/48 (68) 100 98.4 06/30/18 23:07 113 19 30 06/30/18 21:09 110 20 30 06/30/18 20:35 105 100/46 06/30/18 20:00 98.8 105 14 100/46 (64) 100 98.8 06/30/18 20:00 Mechanical Ventilator 40.0 06/30/18 20:00 114 06/30/18 20:00 30 06/30/18 19:30 112 21 30 06/30/18 18:00 99.9 106 20 18/55 (43) 98 99.9 06/30/18 17:01 109 20 30 06/30/18 17:00 100.4 109 20 94/45 (61) 100 100.4 06/30/18 16:30 100.4 06/30/18 16:00 Mechanical Ventilator 40.0 06/30/18 16:00 118 21 128/80 (96) 96 06/30/18 16:00 30 06/30/18 15:31 101.4 06/30/18 15:30 101.4 101.4 06/30/18 15:24 114 06/30/18 15:15 117 21 30 06/30/18 15:00 115 19 102/36 (58) 98 06/30/18 14:00 110 17 101/41 (61) 100 06/30/18 13:00 99.5 104 19 110/45 (66) 100 99.5 06/30/18 12:55 102 20 30 Height (Feet): 5 Height (Inches): 10.00 Weight (Pounds): 135 Objective Gen: NAD, Trached on vent HEENT: NCAT, MMM, EOMI, LUNGS: CTAB, No W/C, No Accessory muscle use CARDS: RRR, S1, S2, No M/R/G, ABD: Soft, NT, ND, No R/G, + BS, PEG Some erosion of skin NEURO: Blinks eyes. Does not move ext. SKIN: warm/dry, No rashes, multiple bed sores. Buttock region (some down to bone ), feet and knees. No surrounding erythema. Microbiology Date/Time Source Procedure Growth Status 06/29/18 17:45 Blood Blood Culture - Preliminary NO GROWTH AFTER 24 HOURS Resulted 06/29/18 17:30 Blood Blood Culture - Preliminary NO GROWTH AFTER 24 HOURS Resulted 06/29/18 17:40 Urine,Clean Catch Urine Culture - Preliminary Gram Negative Bacillus 1 Resulted 06/29/18 23:00 Sacral Wound Gram Stain - Final Resulted 06/29/18 23:00 Wound Culture - Preliminary Gram Negative Bacillus 1 Resulted Laboratory Tests Test 07/01/18 06:22 White Blood Count 13.6 K/UL (4.8-10.8) H Red Blood Count 3.10 M/UL (4.70-6.10) L Hemoglobin 8.3 G/DL (14.2-18.0) L Hematocrit 27.9 % (42.0-52.0) L Mean Corpuscular Volume 90 FL (80-99) Mean Corpuscular Hemoglobin 26.8 PG (27.0-31.0) L Mean Corpuscular Hemoglobin Concent 29.8 G/DL (32.0-36.0) L Red Cell Distribution Width 17.8 % (11.6-14.8) H Platelet Count 614 K/UL (150-450) H Mean Platelet Volume 4.9 FL (6.5-10.1) L Neutrophils (%) (Auto) 75.3 % (45.0-75.0) H Lymphocytes (%) (Auto) 11.4 % (20.0-45.0) L Monocytes (%) (Auto) 8.8 % (1.0-10.0) Eosinophils (%) (Auto) 3.9 % (0.0-3.0) H Basophils (%) (Auto) 0.5 % (0.0-2.0) Sodium Level 143 MMOL/L (136-145) Potassium Level 3.7 MMOL/L (3.5-5.1) Chloride Level 111 MMOL/L (98-107) H Carbon Dioxide Level 25 MMOL/L (21-32) Anion Gap 7 mmol/L (5-15) Blood Urea Nitrogen 22 mg/dL (7-18) H Creatinine 0.8 MG/DL (0.55-1.30) Estimat Glomerular Filtration Rate > 60 mL/min (>60) Glucose Level 126 MG/DL (74-106) H Calcium Level 8.0 MG/DL (8.5-10.1) L Phosphorus Level 2.2 MG/DL (2.5-4.9) L Magnesium Level 1.6 MG/DL (1.8-2.4) L Total Bilirubin 0.3 MG/DL (0.2-1.0) Aspartate Amino Transf (AST/SGOT) 16 U/L (15-37) Alanine Aminotransferase (ALT/SGPT) 8 U/L (12-78) L Alkaline Phosphatase 188 U/L (46-116) H Total Protein 6.5 G/DL (6.4-8.2) Albumin 0.9 G/DL (3.4-5.0) L Globulin 5.6 g/dL Albumin/Globulin Ratio 0.2 (1.0-2.7) L Vancomycin Level Trough 25.4 ug/mL (5.0-12.0) H Current Medications Medications (Trade) Dose Ordered Sig/Tameka Route PRN Reason Start Time Stop Time Status Last Admin Dose Admin Acetaminophen (Tylenol) 650 mg Q4H PRN ORAL fever 06/30/18 18:30 07/30/18 02:29 Albuterol/ Ipratropium (Albuterol/ Ipratropium) 3 ml Q4H PRN HHN Shortness of Breath 06/30/18 18:30 07/05/18 02:29 Amiodarone HCl (Cordarone) 200 mg DAILY GT 07/01/18 09:00 07/31/18 08:59 07/01/18 08:50 Carvedilol (Coreg) 6.25 mg EVERY 12 HOURS GT 06/30/18 21:00 07/30/18 20:59 07/01/18 08:50 Cefepime HCl 2 gm/ Dextrose 110 ml @ 220 mls/hr Q12H IV 07/01/18 06:00 07/07/18 05:59 07/01/18 05:55 Heparin Sodium (Porcine) (Heparin 5000 units/ml) 5,000 units EVERY 12 HOURS SUBQ 06/30/18 21:00 07/30/18 08:59 06/30/18 20:54 Levetiracetam (Keppra) 500 mg Q12HR GT 06/30/18 21:00 07/30/18 20:59 07/01/18 08:49 Morphine Sulfate (Morphine Sulfate) 2 mg Q4H PRN IVP pain 4-10 06/30/18 18:27 07/07/18 18:26 Ondansetron HCl (Zofran) 4 mg Q6H PRN IVP Nausea & Vomiting 06/30/18 18:27 07/30/18 18:26 Phenazopyridine HCl (Pyridium) 100 mg DAILYPRN PRN ORAL dysuria 07/01/18 09:00 07/31/18 08:59 Polyethylene Glycol (Miralax) 17 gm DAILYPRN PRN ORAL Constipation 06/30/18 18:27 07/30/18 18:26 Temazepam (Restoril) 15 mg HSPRN PRN ORAL Insomnia 06/30/18 18:27 07/07/18 18:26 Vancomycin HCl (Vanco rx to dose) 1 ea DAILY PRN MISC Per rx protocol 07/01/18 09:00 07/30/18 02:59 Vancomycin/Sodium Chloride 250 ml @ 166.667 mls/hr Q12H IVPB 07/01/18 21:00 07/06/18 20:59 Fausto Rueda M.D. Jul 01, 2018 12:05
--- NOTE | 2018-07-01 15:15 | Consultation ---
History of Present Illness General Date patient seen: Jul 01, 2018 Time patient seen: 15:02 Chief Complaint: Abnormal Labs Reason for Consultation: Pressure ulcers of the trunk Present Illness HPI Patient is a 58 yom transferred from SNF for UTI and elevated WBC. He is bedridden, contracted, vent dependent. He has a h/o large chronic stage 4 pressure ulcers of the trochanters, ischia, and sacrum. He has a feeding tube. He has significant flexion contractures at the hips and knees. His WBC was 16 on admission and 13 today. Allergies: Coded Allergies: No Known Allergies (Unverified , 03/07/17) Medication History Scheduled Amino Acids/Protein Hydrolys (Pro-Stat Awc Liquid), 30 ML GT TID, (Reported) Amiodarone Hcl (Amiodarone Hcl), 200 MG GT DAILY, (Reported) Carvedilol* (Carvedilol*), 6.25 MG GT EVERY 12 HOURS, (Reported) Epoetin Rehan (Epogen), 10,000 UNIT SUBQ 3XW, (Reported) Folic Acid* (Folic Acid*), 1 MG GT DAILY, (Reported) Heparin Sod (Porcine) (Heparin Sodium*), 5,000 UNITS SUBQ EVERY 12 HOURS, ( Reported) Ipratropium/Albuterol Sulfate (DuoNeb 0.5-3(2.5)mg/3ml), 3 ML HHN Q6HR, ( Reported) Levetiracetam* (Levetiracetam*), 500 MG GT Q12HR, (Reported) Omeprazole (Omeprazole), 40 MG GT DAILY, (Reported) Tramadol Hcl* (Ultram*), 50 MG GT DAILY, (Reported) Scheduled PRN Albuterol Sulfate* (Albuterol Sulfate Hhn*), 3 ML INH Q3HR PRN for Shortness of Breath, (Reported) Hydrocodone Bit/Acetaminophen 5-325* ([place] 5-325 Tablet*), 1 TAB GT Q4H PRN for Moderate Pain (Pain Scale 4-6), (Reported) Lorazepam* (Ativan*), 0.5 MG GT Q6HR PRN for For Anxiety, (Reported) Nitroglycerin (Nitrostat), 0.4 MG SL Q5M X3 DOSES PRN for CHEST PAIN, (Reported) Ondansetron* (Zofran*), 4 MG IM Q6H PRN for Nausea & Vomiting, (Reported) Polyethylene Glycol 3350* (Miralax*), 17 GM GT DAILY PRN for Constipation, ( Reported) Miscellaneous Medications Chlorhexidine Gluconate* (Hibiclens*), 118 ML TP, (Reported) Patient History Limited by: medical condition History Provided By: Medical Record Healthcare decision maker Resuscitation status Do Not Resuscitate Advanced Directive on File Yes Past Medical/Surgical History Past Medical/Surgical History: (1) CHF (congestive heart failure) (2) Seizure disorder (3) VT (ventricular tachycardia) (4) Anoxic brain injury (5) Diabetes mellitus type II, uncontrolled (6) Atrial fibrillation (7) UTI (urinary tract infection) (8) Feeding by G-tube Review of Systems Musculoskeletal: Reports: muscle stiffness Skin: Reports: see HPI Physical Exam General Appearance: cachetic Lines, tubes and drains: peripheral, trach, gtube, tierney cath Respiratory/Chest: no respiratory distress Skin Exam: other Musculoskeletal: atrophy Last 24 Hour Vital Signs Date Time Temp Pulse Resp B/P (MAP) Pulse Ox O2 Delivery O2 Flow Rate FiO2 07/01/18 12:17 102 07/01/18 12:00 Mechanical Ventilator 07/01/18 12:00 98.4 105 19 104/49 (67) 100 98.4 07/01/18 12:00 30 07/01/18 11:03 98 20 30 07/01/18 09:13 104 19 30 07/01/18 08:50 104 116/61 07/01/18 08:05 104 07/01/18 08:00 30 07/01/18 08:00 Mechanical Ventilator 07/01/18 08:00 98.1 106 22 116/61 (79) 100 98.1 07/01/18 06:53 113 22 30 07/01/18 06:26 Mechanical Ventilator 07/01/18 05:14 116 23 30 07/01/18 04:00 109 07/01/18 04:00 30 07/01/18 04:00 Mechanical Ventilator 40.0 07/01/18 04:00 97.7 105 12 115/53 (73) 100 97.7 07/01/18 03:23 111 22 30 07/01/18 01:17 112 20 30 07/01/18 00:00 Mechanical Ventilator 40.0 07/01/18 00:00 111 07/01/18 00:00 30 07/01/18 00:00 98.4 115 12 109/48 (68) 100 98.4 06/30/18 23:07 113 19 30 06/30/18 21:09 110 20 30 06/30/18 20:35 105 100/46 06/30/18 20:00 98.8 105 14 100/46 (64) 100 98.8 06/30/18 20:00 Mechanical Ventilator 40.0 06/30/18 20:00 114 06/30/18 20:00 30 06/30/18 19:30 112 21 30 06/30/18 18:00 99.9 106 20 18/55 (43) 98 99.9 06/30/18 17:01 109 20 30 06/30/18 17:00 100.4 109 20 94/45 (61) 100 100.4 06/30/18 16:30 100.4 06/30/18 16:00 Mechanical Ventilator 40.0 06/30/18 16:00 118 21 128/80 (96) 96 06/30/18 16:00 30 06/30/18 15:31 101.4 06/30/18 15:30 101.4 101.4 06/30/18 15:24 114 06/30/18 15:15 117 21 30 Intake and Output 06/30/18 07/01/18 19:00 07:00 Intake Total 710.000 ml 905.000 ml Output Total 365 ml 325 ml Balance 345.000 ml 580.000 ml Intake Free Water 100 ml 50 ml IV Total 385.000 ml 385.000 ml Tube Feeding 225 ml 420 ml Other 50 ml Output Urine Total 365 ml 325 ml # Bowel Movements 2 2 Laboratory Tests Test 07/01/18 06:22 White Blood Count 13.6 K/UL (4.8-10.8) H Red Blood Count 3.10 M/UL (4.70-6.10) L Hemoglobin 8.3 G/DL (14.2-18.0) L Hematocrit 27.9 % (42.0-52.0) L Mean Corpuscular Volume 90 FL (80-99) Mean Corpuscular Hemoglobin 26.8 PG (27.0-31.0) L Mean Corpuscular Hemoglobin Concent 29.8 G/DL (32.0-36.0) L Red Cell Distribution Width 17.8 % (11.6-14.8) H Platelet Count 614 K/UL (150-450) H Mean Platelet Volume 4.9 FL (6.5-10.1) L Neutrophils (%) (Auto) 75.3 % (45.0-75.0) H Lymphocytes (%) (Auto) 11.4 % (20.0-45.0) L Monocytes (%) (Auto) 8.8 % (1.0-10.0) Eosinophils (%) (Auto) 3.9 % (0.0-3.0) H Basophils (%) (Auto) 0.5 % (0.0-2.0) Sodium Level 143 MMOL/L (136-145) Potassium Level 3.7 MMOL/L (3.5-5.1) Chloride Level 111 MMOL/L (98-107) H Carbon Dioxide Level 25 MMOL/L (21-32) Anion Gap 7 mmol/L (5-15) Blood Urea Nitrogen 22 mg/dL (7-18) H Creatinine 0.8 MG/DL (0.55-1.30) Estimat Glomerular Filtration Rate > 60 mL/min (>60) Glucose Level 126 MG/DL (74-106) H Calcium Level 8.0 MG/DL (8.5-10.1) L Phosphorus Level 2.2 MG/DL (2.5-4.9) L Magnesium Level 1.6 MG/DL (1.8-2.4) L Total Bilirubin 0.3 MG/DL (0.2-1.0) Aspartate Amino Transf (AST/SGOT) 16 U/L (15-37) Alanine Aminotransferase (ALT/SGPT) 8 U/L (12-78) L Alkaline Phosphatase 188 U/L (46-116) H Total Protein 6.5 G/DL (6.4-8.2) Albumin 0.9 G/DL (3.4-5.0) L Globulin 5.6 g/dL Albumin/Globulin Ratio 0.2 (1.0-2.7) L Vancomycin Level Trough 25.4 ug/mL (5.0-12.0) H Height (Feet): 5 Height (Inches): 10.00 Weight (Pounds): 135 Medications Current Medications Medications (Trade) Dose Ordered Sig/Tameka Route PRN Reason Start Time Stop Time Status Last Admin Dose Admin Acetaminophen (Tylenol) 650 mg Q4H PRN ORAL fever 06/30/18 18:30 07/30/18 02:29 Albuterol/ Ipratropium (Albuterol/ Ipratropium) 3 ml Q4H PRN HHN Shortness of Breath 06/30/18 18:30 07/05/18 02:29 Amiodarone HCl (Cordarone) 200 mg DAILY GT 07/01/18 09:00 07/31/18 08:59 07/01/18 08:50 Carvedilol (Coreg) 6.25 mg EVERY 12 HOURS GT 06/30/18 21:00 07/30/18 20:59 07/01/18 08:50 Cefepime HCl 2 gm/ Dextrose 110 ml @ 220 mls/hr Q12H IV 07/01/18 06:00 07/07/18 05:59 07/01/18 05:55 Heparin Sodium (Porcine) (Heparin 5000 units/ml) 5,000 units EVERY 12 HOURS SUBQ 06/30/18 21:00 07/30/18 08:59 06/30/18 20:54 Levetiracetam (Keppra) 500 mg Q12HR GT 06/30/18 21:00 07/30/18 20:59 07/01/18 08:49 Morphine Sulfate (Morphine Sulfate) 2 mg Q4H PRN IVP pain 4-10 06/30/18 18:27 07/07/18 18:26 Ondansetron HCl (Zofran) 4 mg Q6H PRN IVP Nausea & Vomiting 06/30/18 18:27 07/30/18 18:26 Phenazopyridine HCl (Pyridium) 100 mg DAILYPRN PRN ORAL dysuria 07/01/18 09:00 07/31/18 08:59 Polyethylene Glycol (Miralax) 17 gm DAILYPRN PRN ORAL Constipation 06/30/18 18:27 07/30/18 18:26 Temazepam (Restoril) 15 mg HSPRN PRN ORAL Insomnia 06/30/18 18:27 07/07/18 18:26 Vancomycin HCl (Vanco rx to dose) 1 ea DAILY PRN MISC Per rx protocol 07/01/18 09:00 07/30/18 02:59 Vancomycin/Sodium Chloride 250 ml @ 166.667 mls/hr Q12H IVPB 07/01/18 21:00 07/06/18 20:59 Assessment/Plan Assessment/Plan Patient with large chronic pressure ulcers of the trunk. Prognosis for healing is poor for the following reasons: 1) patient's severe contractures 2) low nutrition level 3) likely chronic osteomyelitis 4) difficulty in offloading as he would always be placing direct pressure on one of the ulcers. No surgical intervention indicated at this time as the ulcers of the trunk are clean and given his low EF he is a high risk for anesthesia, and any debridement that would be necessary should be attempted at the bedside under local anesthesia. For now will continue dressing changes, check prealbumin level, offload aggressively, and treat the UTI. Thank you for allowing me to participate in this patient's care. Ismael Hahn MD Jul 01, 2018 15:15
--- NOTE | 2018-07-01 15:41 | Pulmonolgy Critical Care Note ---
Critical Care - Asmt/Plan Problems: (1) Acute on chronic respiratory failure (2) Septic shock (3) Atrial fibrillation (4) EF of 30 (5) Feeding by G-tube (6) Anoxic brain injury (7) Seizure disorder (8) Sacral decubitus ulcer, stage IV Respiratory: monitor respiratory rate, adjust FIO2, CXR Cardiac: start pressors, stop pressors, continue to monitor HR/BP Infectious Disease: check cultures Endocrine: monitor blood sugar, check TSH Hematologic: monitor H/H Neurologic: PRN Ativan Prophylaxis: Protonix Disposition: keep in ICU Time Spent (Minutes): 40 Notes Reviewed: cardio, renal Discussed with: nurses, piano case maker, other - pts sister requesting comfort care and reomval of ventilator. Critical Care - Objective Last 24 Hour Vital Signs Date Time Temp Pulse Resp B/P (MAP) Pulse Ox O2 Delivery O2 Flow Rate FiO2 07/01/18 12:17 102 07/01/18 12:00 Mechanical Ventilator 07/01/18 12:00 98.4 105 19 104/49 (67) 100 98.4 07/01/18 12:00 30 07/01/18 11:03 98 20 30 07/01/18 09:13 104 19 30 07/01/18 08:50 104 116/61 07/01/18 08:05 104 07/01/18 08:00 30 07/01/18 08:00 Mechanical Ventilator 07/01/18 08:00 98.1 106 22 116/61 (79) 100 98.1 07/01/18 06:53 113 22 30 07/01/18 06:26 Mechanical Ventilator 07/01/18 05:14 116 23 30 07/01/18 04:00 109 07/01/18 04:00 30 07/01/18 04:00 Mechanical Ventilator 40.0 07/01/18 04:00 97.7 105 12 115/53 (73) 100 97.7 07/01/18 03:23 111 22 30 07/01/18 01:17 112 20 30 07/01/18 00:00 Mechanical Ventilator 40.0 07/01/18 00:00 111 07/01/18 00:00 30 07/01/18 00:00 98.4 115 12 109/48 (68) 100 98.4 06/30/18 23:07 113 19 30 06/30/18 21:09 110 20 30 8/14/18 20:35 105 100/46 06/30/18 20:00 98.8 105 14 100/46 (64) 100 98.8 06/30/18 20:00 Mechanical Ventilator 40.0 06/30/18 20:00 114 06/30/18 20:00 30 06/30/18 19:30 112 21 30 06/30/18 18:00 99.9 106 20 18/55 (43) 98 99.9 06/30/18 17:01 109 20 30 06/30/18 17:00 100.4 109 20 94/45 (61) 100 100.4 06/30/18 16:30 100.4 06/30/18 16:00 Mechanical Ventilator 40.0 06/30/18 16:00 118 21 128/80 (96) 96 06/30/18 16:00 30 Status: obtunded Condition: critical HEENT: atraumatic Lungs: clear Heart: HR/BP unstable Abdomen: non-tender, active bowel sounds, feeding tube Extremities: no C/C/E Micro: Microbiology Date/Time Source Procedure Growth Status 06/29/18 17:45 Blood Blood Culture - Preliminary NO GROWTH AFTER 24 HOURS Resulted 06/29/18 17:30 Blood Blood Culture - Preliminary NO GROWTH AFTER 24 HOURS Resulted 06/29/18 17:40 Urine,Clean Catch Urine Culture - Preliminary Gram Negative Bacillus 1 Resulted 06/29/18 23:00 Sacral Wound Gram Stain - Final Resulted 06/29/18 23:00 Wound Culture - Preliminary Gram Negative Bacillus 1 Resulted Accucheck: 127 Critical Care - Subjective ROS Limited/Unobtainable: Yes Condition: critical FI02: 30 Vent Support Breath Rate: 16 Vent Support Mode: AC Vent Tidal Volume: 600 Sputum Amount: Small PEEP: 5.0 PIP: 24 Tube Feeding Amount: 35 I&O: Intake and Output 06/30/18 07/01/18 19:00 07:00 Intake Total 710.000 ml 905.000 ml Output Total 365 ml 325 ml Balance 345.000 ml 580.000 ml Intake Free Water 100 ml 50 ml IV Total 385.000 ml 385.000 ml Tube Feeding 225 ml 420 ml Other 50 ml Output Urine Total 365 ml 325 ml # Bowel Movements 2 2 Labs: Laboratory Tests Test 07/01/18 06:22 White Blood Count 13.6 K/UL (4.8-10.8) H Red Blood Count 3.10 M/UL (4.70-6.10) L Hemoglobin 8.3 G/DL (14.2-18.0) L Hematocrit 27.9 % (42.0-52.0) L Mean Corpuscular Volume 90 FL (80-99) Mean Corpuscular Hemoglobin 26.8 PG (27.0-31.0) L Mean Corpuscular Hemoglobin Concent 29.8 G/DL (32.0-36.0) L Red Cell Distribution Width 17.8 % (11.6-14.8) H Platelet Count 614 K/UL (150-450) H Mean Platelet Volume 4.9 FL (6.5-10.1) L Neutrophils (%) (Auto) 75.3 % (45.0-75.0) H Lymphocytes (%) (Auto) 11.4 % (20.0-45.0) L Monocytes (%) (Auto) 8.8 % (1.0-10.0) Eosinophils (%) (Auto) 3.9 % (0.0-3.0) H Basophils (%) (Auto) 0.5 % (0.0-2.0) Sodium Level 143 MMOL/L (136-145) Potassium Level 3.7 MMOL/L (3.5-5.1) Chloride Level 111 MMOL/L (98-107) H Carbon Dioxide Level 25 MMOL/L (21-32) Anion Gap 7 mmol/L (5-15) Blood Urea Nitrogen 22 mg/dL (7-18) H Creatinine 0.8 MG/DL (0.55-1.30) Estimat Glomerular Filtration Rate > 60 mL/min (>60) Glucose Level 126 MG/DL (74-106) H Calcium Level 8.0 MG/DL (8.5-10.1) L Phosphorus Level 2.2 MG/DL (2.5-4.9) L Magnesium Level 1.6 MG/DL (1.8-2.4) L Total Bilirubin 0.3 MG/DL (0.2-1.0) Aspartate Amino Transf (AST/SGOT) 16 U/L (15-37) Alanine Aminotransferase (ALT/SGPT) 8 U/L (12-78) L Alkaline Phosphatase 188 U/L (46-116) H Total Protein 6.5 G/DL (6.4-8.2) Albumin 0.9 G/DL (3.4-5.0) L Globulin 5.6 g/dL Albumin/Globulin Ratio 0.2 (1.0-2.7) L Prealbumin Pending Vancomycin Level Trough 25.4 ug/mL (5.0-12.0) H Shani Moses MD Jul 01, 2018 15:40
[2018-07-01] MEDS ORDERED: Morphine Sulfate 2mg/ml Inj(IV/IM USE ONLY) IV PRN ×2 (15:45→20:33)
[2018-07-01 16:00] VITALS: BP 108/58
--- NOTE | 2018-07-01 19:45 | History and Physical Report ---
DATE OF ADMISSION: 06/29/2018 CHIEF COMPLAINT: The patient is a 58-year-old male with history of anoxic brain injury and vent dependent respiratory failure presents with chief complaint of elevated white count and urinary tract infection. HISTORY OF PRESENT ILLNESS: The patient is a resident of [facility]. According to staff at [facility], the patient began to have low-grade fevers. A CBC revealed leukocytosis. A urinalysis revealed urinary tract infection. The patient is transferred to [facility] for evaluation of urinary tract infection to rule out pyelonephritis. PAST MEDICAL HISTORY: Significant for; 1. Vent-dependent respiratory failure. 2. Status post tracheostomy. 3. Hypertension. 4. Anoxic brain injury. 5. Automatic internal cardioverter-defibrillator in situ. 6. Seizure disorder. 7. Atrial fibrillation. 8. Multiple stage IV decubitus ulcers. 9. Congestive heart failure. 10. Diabetes mellitus type 2. 11. History of cerebrovascular disease. 12. Chronic anemia. 13. Dysphagia, status post PEG placement. PAST SURGICAL HISTORY: Significant for; 1. AICD placement as above. 2. Jejunostomy tube placement. 3. Tracheostomy. CURRENT MEDICATIONS: 1. Albuterol nebulized q.4 h. p.r.n. 2. Amiodarone 200 mg per G-tube daily. 3. Carvedilol 6.25 mg p.o. twice daily. 4. Erythropoietin 10,000 units subcutaneously every Friday, Friday and Friday. 5. Folic acid 1 mg p.o. daily. 6. Heparin 5000 units subcutaneously twice daily. 7. Stirum 5/325 mg one tablet per G-tube q.4 h. p.r.n. 8. Keppra 500 mg per G-tube twice daily. 9. Ativan 0.5 mg per G-tube q.6 h. p.r.n. 10. Omeprazole 40 mg per G-tube daily. 11. Zofran 4 mg per G-tube p.r.n. 12. Tramadol 50 mg per G-tube q.6 h. p.r.n. ALLERGIES: No known drug allergies. SOCIAL HISTORY: The patient is resident of [facility]. The patient denies tobacco or alcohol use. REVIEW OF SYSTEMS: Unable to assess secondary to the patient's mental status. PHYSICAL EXAMINATION: GENERAL: The patient is thin-appearing male, who is nonverbal. VITAL SIGNS: Temperature 98.1 degrees, respirations 22, pulse 106, and blood pressure 116/61. HEENT: Eyes, pupils equal and responsive to light and accommodation. Extraocular movements are intact. NECK: Supple without lymphadenopathy. There is tracheostomy tube in place. CHEST: Coarse upper respiratory wheezes. Otherwise, clear to auscultation bilaterally without wheezes or rales. CARDIOVASCULAR: Slightly tachycardic. Regular rhythm. S1 and S2 are normal without murmurs, rubs, or gallops. ABDOMEN: Soft, nontender, nondistended. Positive bowel sounds. No evidence of hepatosplenomegaly. Currently, no rebound or guarding noted. A PEG is in place. NEUROLOGIC: Cranial nerves II through XII are grossly intact without focal deficits. EXTREMITIES: Negative for clubbing, cyanosis, or edema. LABORATORY AND DIAGNOSTIC DATA: WBC 16.3, hemoglobin 10.0, hematocrit 32.3 and platelets 653,000. Sodium 146, potassium 4.2, chloride 115, CO2 21, BUN 27, creatinine 0.5 and glucose 73. Urinalysis showed 1+ ketones, 5+ occult blood, 3+ leukocyte esterase with 5 to 10 rbc's and 15 to 20 wbc's. ASSESSMENT: This is a 58-year-old male 1. Urinary tract infection. 2. Leukocytosis. 3. Respiratory failure, vent dependent. 4. History of cerebrovascular disease. 5. Dysphagia. 6. Hypertension. 7. Hepatitis C. 8. Multiple decubitus ulcer, stage IV. 9. Anoxic brain injury. 10. Diabetes type 2. 11. Seizure disorder. 12. Atrial fibrillation. 13. Congestive heart failure. 14. Dysphagia. TREATMENT: 1. Urinary tract infection/leukocytosis. Infectious Disease consultation has been obtained with Dr. Naqvi. The patient has been started empirically on cefepime and vancomycin. A urine culture is pending. Await culture and sensitivity results. 2. Cerebrovascular disease. 3. Dysphagia. The patient is status post jejunostomy tube placement. The patient is status post gastrostomy tube placement. 4. Hypertension. Continue Coreg as above. 5. Hepatitis C. 6. Multiple decubitus ulcer, stage IV. 7. Continue wound care. 8. Anoxic brain injury. 9. Diabetes type 2. NovoLog sliding scale has been instituted. 10. Seizure disorder. Continue Keppra as above. 11. Atrial fibrillation/congestive heart failure. A Cardiology consultation has been obtained with Dr. Berg. 12. AICD in place. Aaron Solis M.D. DR: SHIRAZ JOB#: [id number] CC:
[2018-07-01 20:00] VITALS: BP_SYST 103; BP_SYST 114; BP_DIAS 58; BP_DIAS 64
[2018-07-01] MEDS ORDERED: Albuterol/Ipratropium 3ml neb HHN PRN (20:33)
[2018-07-01] MEDS ORDERED: Miralax 17gm pkt ORAL PRN (20:34)
[2018-07-01] MEDS ORDERED: Vancomycin 750mg/NS 250ml IVPB SCH (21:00)
[2018-07-02] VITALS: BP 103/66
[2018-07-02 04:00] VITALS: BP 110/70
[2018-07-02 06:49] LABS: EOSINOPHILS % (AUTO) 5.2 % (0.0-3.0); HEMATOCRIT 30.2 % (42.0-52.0); HEMOGLOBIN 9.2 G/DL (14.2-18.0); LYMPHOCYTES % (AUTO) 11.2 % (20.0-45.0); MEAN CORPUSCULAR VOLUME 91 FL (80-99); MONOCYTES % (AUTO) 7.8 % (1.0-10.0); NEUTROPHILS % (AUTO) 74.7 % (45.0-75.0); PLATELET COUNT 598 K/UL (150-450); RED BLOOD COUNT 3.33 M/UL (4.70-6.10); RED CELL DISTRIBUTION WIDTH 17.2 % (11.6-14.8)
[2018-07-02 07:18] LABS: ANION GAP 4 mmol/L (5-15); BLOOD UREA NITROGEN 21 mg/dL (7-18); CALCIUM 8.8 MG/DL (8.5-10.1); CARBON DIOXIDE 28 MMOL/L (21-32); CHLORIDE 111 MMOL/L (98-107); CREATININE 0.7 MG/DL (0.55-1.30); POTASSIUM 4.6 MMOL/L (3.5-5.1); SODIUM 143 MMOL/L (136-145)
[2018-07-02 08:00] VITALS: BP 113/75
[2018-07-02] MEDS ORDERED: Heparin 5000 units/ml inj SUBQ SCH (09:00)
[2018-07-02] MEDS: levETIRAcetam 500mg/5ml Liquid GT SCH ×2 (09:10→21:20)
--- NOTE | 2018-07-02 11:57 | Infectious Diseases Prog Note ---
Assessment/Plan Assessment/Plan 58 yo male who presented from a care home vent dependent p/w with UTI. # Sepsis secondary to MDR UTI - f/u urine culture: MDR K.pna (S Tigecycline) - blood cultures - NTD #Leukocytosis, incerased # Fever Now resolved # Multiple large bed sores. ; no infection - Some down to bone - no surrounding cellulitis - Needs surgical evaluation - Ventricular tachycardia - Atrial Fibrillation - Heart Failure with ICD - CVD - Dysphagia with G-tube - Vent dependent PLAN: -Start IV Tigecycline for MDR UTI -set up for colistin, polymixin B, Minocycline and aztreonam (requested to lab on 07/02) -07/01 SP vancomycin #2, Cefepime #2 - Monitor CBC and temps - Wound care - Sx f/u - Supportive care Thank you for consulting us for the care of this patient. We will continue to follow with you. Subjective Allergies: Coded Allergies: No Known Allergies (Unverified , 03/07/17) Subjective afebrile in 36hr wbc increased bcx NTD Objective Vital Signs Last 24 Hour Vital Signs Date Time Temp Pulse Resp B/P (MAP) Pulse Ox O2 Delivery O2 Flow Rate FiO2 07/02/18 08:00 98.1 76 18 113/75 (88) 100 98.1 07/02/18 07:50 T-piece 12.0 40 07/02/18 07:50 99 T-piece 12.0 40 07/02/18 04:00 98.0 107 18 110/70 (83) 100 98.0 07/02/18 01:29 T-piece 12.0 40 07/02/18 01:29 99 T-piece 12.0 40 07/02/18 00:00 99.2 110 20 103/66 (78) 100 99.2 07/01/18 20:00 98.2 110 20 114/58 (76) 100 98.2 07/01/18 20:00 Mechanical Ventilator 07/01/18 19:54 108 07/01/18 18:50 100 T-piece 12.0 40 07/01/18 18:50 T-piece 12.0 40 07/01/18 16:36 99.1 07/01/18 16:14 14.0 55 07/01/18 16:06 99.1 07/01/18 16:00 105 07/01/18 16:00 99.1 107 20 108/58 (75) 100 99.1 07/01/18 16:00 30 07/01/18 16:00 Mechanical Ventilator 07/01/18 14:48 88 18 30 07/01/18 13:22 92 18 30 07/01/18 12:17 102 07/01/18 12:00 Mechanical Ventilator 07/01/18 12:00 98.4 105 19 104/49 (67) 100 98.4 07/01/18 12:00 30 Height (Feet): 5 Height (Inches): 10.00 Weight (Pounds): 135 Objective Gen: NAD, Trached on vent HEENT: NCAT, MMM, EOMI, LUNGS: CTAB, No W/C, No Accessory muscle use CARDS: RRR, S1, S2, No M/R/G, ABD: Soft, NT, ND, No R/G, + BS, PEG Some erosion of skin NEURO: Blinks eyes. Does not move ext. SKIN: warm/dry, No rashes, multiple bed sores. Buttock region (some down to bone ), feet and knees. No surrounding erythema. Microbiology Date/Time Source Procedure Growth Status 06/30/18 05:45 Blood Blood Culture - Preliminary NO GROWTH AFTER 48 HOURS Resulted 06/30/18 05:30 Blood Blood Culture - Preliminary NO GROWTH AFTER 48 HOURS Resulted 06/29/18 17:45 Blood Blood Culture - Preliminary NO GROWTH AFTER 48 HOURS Resulted 06/29/18 17:30 Blood Blood Culture - Preliminary NO GROWTH AFTER 48 HOURS Resulted 06/29/18 21:47 Nasal Nares MRSA Culture - Final NO METHICILLIN RESISTANT STAPH AUREUS... Complete 06/29/18 17:40 Urine,Clean Catch Urine Culture - Preliminary Klebsiella Pneumoniae - Mdr Resulted 06/29/18 23:00 Sacral Wound Gram Stain - Final Resulted 06/29/18 23:00 Wound Culture - Preliminary Gram Negative Bacillus 1 Gram Negative Bacillus 2 Gram Negative Bacillus 3 Gram Positive Cocci Resulted 06/29/18 21:47 Rectum VRE Culture - Final Enterococcus Faecium - Vre Enterococcus Faecalis - Vre Complete Laboratory Tests Test 07/02/18 06:00 White Blood Count 15.0 K/UL (4.8-10.8) H Red Blood Count 3.33 M/UL (4.70-6.10) L Hemoglobin 9.2 G/DL (14.2-18.0) L Hematocrit 30.2 % (42.0-52.0) L Mean Corpuscular Volume 91 FL (80-99) Mean Corpuscular Hemoglobin 27.6 PG (27.0-31.0) Mean Corpuscular Hemoglobin Concent 30.5 G/DL (32.0-36.0) L Red Cell Distribution Width 17.2 % (11.6-14.8) H Platelet Count 598 K/UL (150-450) H Mean Platelet Volume 5.1 FL (6.5-10.1) L Neutrophils (%) (Auto) 74.7 % (45.0-75.0) Lymphocytes (%) (Auto) 11.2 % (20.0-45.0) L Monocytes (%) (Auto) 7.8 % (1.0-10.0) Eosinophils (%) (Auto) 5.2 % (0.0-3.0) H Basophils (%) (Auto) 1.0 % (0.0-2.0) Sodium Level 143 MMOL/L (136-145) Potassium Level 4.6 MMOL/L (3.5-5.1) Chloride Level 111 MMOL/L (98-107) H Carbon Dioxide Level 28 MMOL/L (21-32) Anion Gap 4 mmol/L (5-15) L Blood Urea Nitrogen 21 mg/dL (7-18) H Creatinine 0.7 MG/DL (0.55-1.30) Estimat Glomerular Filtration Rate > 60 mL/min (>60) Glucose Level 111 MG/DL (74-106) H Calcium Level 8.8 MG/DL (8.5-10.1) Current Medications Medications (Trade) Dose Ordered Sig/Tameka Route PRN Reason Start Time Stop Time Status Last Admin Dose Admin Acetaminophen (Tylenol) 650 mg Q4H PRN ORAL fever 07/01/18 20:33 07/30/18 20:32 Albuterol/ Ipratropium (Albuterol/ Ipratropium) 3 ml Q4H PRN HHN Shortness of Breath 07/01/18 20:33 07/05/18 20:32 Heparin Sodium (Porcine) (Heparin 5000 units/ml) 5,000 units EVERY 12 HOURS SUBQ 07/02/18 09:00 08/01/18 08:59 07/02/18 09:11 Levetiracetam (Keppra) 500 mg Q12HR GT 07/02/18 09:00 08/01/18 08:59 07/02/18 09:10 Morphine Sulfate (Morphine Sulfate) 4 mg Q1H PRN IV tachycardia> 20 07/01/18 20:33 07/08/18 20:32 Ondansetron HCl (Zofran) 4 mg Q6H PRN IVP Nausea & Vomiting 07/01/18 20:33 07/31/18 20:32 Phenazopyridine HCl (Pyridium) 100 mg DAILYPRN PRN ORAL dysuria 07/01/18 20:33 07/31/18 20:32 Polyethylene Glycol (Miralax) 17 gm DAILYPRN PRN ORAL Constipation 07/01/18 20:34 07/31/18 20:33 Radha Saini M.D. Jul 02, 2018 11:57
[2018-07-02 12:00] VITALS: BP 157/74
[2018-07-02] MEDS ORDERED: Tigecycline 100 MG in D5W 110 ML IVPB SCH (13:00)
--- NOTE | 2018-07-02 15:16 | Pulmonology Progress Note ---
Assessment/Plan Problems: (1) Need for comfort care (2) Anoxic brain injury (3) Sacral decubitus ulcer, stage IV (4) AICD (automatic cardioverter/defibrillator) present (5) VT (ventricular tachycardia) (6) Seizure disorder (7) EF of 30 (8) Severe protein-calorie malnutrition (9) Pressure ulcer, hip, left, unstageable (10) Diabetes mellitus type II, uncontrolled Assessment/Plan comfort care Morphine for comfort pts sister understands the prognosis and agrees with comfort care and Morphine drip Subjective ROS Limited/Unobtainable: No Constitutional: Reports: no symptoms HEENT: Repors: no symptoms Allergies: Coded Allergies: No Known Allergies (Unverified , 03/07/17) Objective Last 24 Hour Vital Signs Date Time Temp Pulse Resp B/P (MAP) Pulse Ox O2 Delivery O2 Flow Rate FiO2 07/02/18 13:44 98 T-piece 12.0 40 07/02/18 13:44 T-piece 12.0 40 07/02/18 12:00 98.8 82 18 157/74 (101) 100 98.8 07/02/18 09:00 Room Air 07/02/18 08:00 98.1 76 18 113/75 (88) 100 98.1 07/02/18 07:50 T-piece 12.0 40 07/02/18 07:50 99 T-piece 12.0 40 07/02/18 04:00 98.0 107 18 110/70 (83) 100 98.0 07/02/18 01:29 T-piece 12.0 40 07/02/18 01:29 99 T-piece 12.0 40 07/02/18 00:00 99.2 110 20 103/66 (78) 100 99.2 07/01/18 20:00 98.2 110 20 114/58 (76) 100 98.2 07/01/18 20:00 Mechanical Ventilator 07/01/18 19:54 108 07/01/18 18:50 100 T-piece 12.0 40 07/01/18 18:50 T-piece 12.0 40 07/01/18 16:36 99.1 07/01/18 16:14 14.0 55 07/01/18 16:06 99.1 07/01/18 16:00 105 07/01/18 16:00 99.1 107 20 108/58 (75) 100 99.1 07/01/18 16:00 30 07/01/18 16:00 Mechanical Ventilator Intake and Output 07/01/18 07/02/18 19:00 07:00 Intake Total 795.000 ml 485 ml Output Total 350 ml Balance 445.000 ml 485 ml Intake Free Water 50 ml 100 ml IV Total 275.000 ml Tube Feeding 420 ml 385 ml Other 50 ml Output Urine Total 350 ml General Appearance: cachetic HEENT: normocephalic, atraumatic Respiratory/Chest: chest wall non-tender, lungs clear Cardiovascular: normal peripheral pulses, normal rate Abdomen: normal bowel sounds Extremities: no cyanosis Skin: no lesions Microbiology Date/Time Source Procedure Growth Status 06/30/18 05:45 Blood Blood Culture - Preliminary NO GROWTH AFTER 48 HOURS Resulted 06/30/18 05:30 Blood Blood Culture - Preliminary NO GROWTH AFTER 48 HOURS Resulted 06/29/18 17:45 Blood Blood Culture - Preliminary NO GROWTH AFTER 48 HOURS Resulted 06/29/18 17:30 Blood Blood Culture - Preliminary NO GROWTH AFTER 48 HOURS Resulted 06/29/18 21:47 Nasal Nares MRSA Culture - Final NO METHICILLIN RESISTANT STAPH AUREUS... Complete 06/29/18 17:40 Urine,Clean Catch Urine Culture - Preliminary Klebsiella Pneumoniae - Mdr Resulted 06/29/18 23:00 Sacral Wound Gram Stain - Final Resulted 06/29/18 23:00 Wound Culture - Preliminary Gram Negative Bacillus 1 Gram Negative Bacillus 2 Gram Negative Bacillus 3 Gram Positive Cocci Resulted 06/29/18 21:47 Rectum VRE Culture - Final Enterococcus Faecium - Vre Enterococcus Faecalis - Vre Complete Laboratory Tests 07/02/18 06:00: White Blood Count 15.0H, Red Blood Count 3.33L, Hemoglobin 9.2L, Hematocrit 30.2L, Mean Corpuscular Volume 91, Mean Corpuscular Hemoglobin 27.6, Mean Corpuscular Hemoglobin Concent 30.5L, Red Cell Distribution Width 17.2H, Platelet Count 598H, Mean Platelet Volume 5.1L, Neutrophils (%) (Auto) 74.7, Lymphocytes (%) (Auto) 11.2L, Monocytes (%) (Auto) 7.8, Eosinophils (%) (Auto) 5.2H, Basophils (%) (Auto) 1.0, Sodium Level 143, Potassium Level 4.6, Chloride Level 111H, Carbon Dioxide Level 28, Anion Gap 4L, Blood Urea Nitrogen 21H, Creatinine 0.7, Estimat Glomerular Filtration Rate > 60, Glucose Level 111H, Calcium Level 8.8 Current Medications Medications (Trade) Dose Ordered Sig/Tameka Route PRN Reason Start Time Stop Time Status Last Admin Dose Admin Acetaminophen (Tylenol) 650 mg Q4H PRN ORAL fever 07/01/18 20:33 07/30/18 20:32 Albuterol/ Ipratropium (Albuterol/ Ipratropium) 3 ml Q4H PRN HHN Shortness of Breath 07/01/18 20:33 07/05/18 20:32 Levetiracetam (Keppra) 500 mg Q12HR GT 07/02/18 09:00 08/01/18 08:59 07/02/18 09:10 Morphine Sulfate (Morphine Sulfate) 4 mg Q1H PRN IV tachycardia> 20 07/01/18 20:33 07/08/18 20:32 Ondansetron HCl (Zofran) 4 mg Q6H PRN IVP Nausea & Vomiting 07/01/18 20:33 07/31/18 20:32 Shani Moses MD Jul 02, 2018 15:16
[2018-07-02] MEDS ORDERED: Rate Change PCA 1 Each MISC PRN (15:30)
[2018-07-02 15:42] VITALS: BP 117/76
--- NOTE | 2018-07-02 16:53 | Internal Med Progress Note ---
Subjective Date of Service: Jul 02, 2018 Physician Name Aaron Solis Attending Physician Roland Box MD Current Medications Medications (Trade) Dose Ordered Sig/Tameka Route PRN Reason Start Time Stop Time Status Last Admin Dose Admin Acetaminophen (Tylenol) 650 mg Q4H PRN ORAL fever 07/01/18 20:33 07/30/18 20:32 Albuterol/ Ipratropium (Albuterol/ Ipratropium) 3 ml Q4H PRN HHN Shortness of Breath 07/01/18 20:33 07/05/18 20:32 Levetiracetam (Keppra) 500 mg Q12HR GT 07/02/18 09:00 08/01/18 08:59 07/02/18 09:10 Miscellaneous Medication (PRESS CLEANER Rate Change) 1 ea PRN MISC rate change 07/02/18 15:30 07/04/18 15:29 Miscellaneous Medication (PRESS CLEANER shift volume) 1 ea Q12HR@0700,1900 MISC 07/02/18 19:00 07/04/18 18:59 Morphine Sulfate 30 ml @ 0 mls/hr PRESS CLEANER Protocol PRN IV For Pain 07/02/18 15:21 07/04/18 15:20 Morphine Sulfate (Morphine Sulfate) 4 mg Q1H PRN IV tachycardia> 20 07/01/18 20:33 07/08/18 20:32 Naloxone HCl (Narcan) 0.1 mg PRN IV RR<10 OR SBP<90 07/02/18 15:30 07/04/18 15:29 Ondansetron HCl (Zofran) 4 mg Q6H PRN IVP Nausea & Vomiting 07/01/18 20:33 07/31/18 20:32 Allergies: Coded Allergies: No Known Allergies (Unverified , 03/07/17) ROS Limited/Unobtainable: Yes Subjective 58 YO M with chronic respiratory failure, admitted with leukocytosis. Now UTI. Cover for Int Med-Dr Box. Objective Last Vital Signs Date Time Temp Pulse Resp B/P (MAP) Pulse Ox O2 Delivery O2 Flow Rate FiO2 07/02/18 15:42 97.6 84 18 117/76 (90) 100 97.6 07/02/18 13:44 T-piece 12.0 40 General Appearance: alert, mild distress, thin EENT: PERRL/EOMI, normal ENT inspection Neck: non-tender, normal alignment, supple Cardiovascular: normal peripheral pulses, normal rate, regular rhythm, no gallop/murmur, no JVD Respiratory/Chest: respiratory distress, crackles/rales, rhonchi - bilaterally , expiratory wheezing Abdomen: normal bowel sounds, non tender, soft, no organomegaly, no mass Extremities: other - contractures 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 Skin: normal pigmentation, warm/dry Laboratory Tests Test 07/02/18 06:00 White Blood Count 15.0 K/UL (4.8-10.8) H Red Blood Count 3.33 M/UL (4.70-6.10) L Hemoglobin 9.2 G/DL (14.2-18.0) L Hematocrit 30.2 % (42.0-52.0) L Mean Corpuscular Volume 91 FL (80-99) Mean Corpuscular Hemoglobin 27.6 PG (27.0-31.0) Mean Corpuscular Hemoglobin Concent 30.5 G/DL (32.0-36.0) L Red Cell Distribution Width 17.2 % (11.6-14.8) H Platelet Count 598 K/UL (150-450) H Mean Platelet Volume 5.1 FL (6.5-10.1) L Neutrophils (%) (Auto) 74.7 % (45.0-75.0) Lymphocytes (%) (Auto) 11.2 % (20.0-45.0) L Monocytes (%) (Auto) 7.8 % (1.0-10.0) Eosinophils (%) (Auto) 5.2 % (0.0-3.0) H Basophils (%) (Auto) 1.0 % (0.0-2.0) Sodium Level 143 MMOL/L (136-145) Potassium Level 4.6 MMOL/L (3.5-5.1) Chloride Level 111 MMOL/L (98-107) H Carbon Dioxide Level 28 MMOL/L (21-32) Anion Gap 4 mmol/L (5-15) L Blood Urea Nitrogen 21 mg/dL (7-18) H Creatinine 0.7 MG/DL (0.55-1.30) Estimat Glomerular Filtration Rate > 60 mL/min (>60) Glucose Level 111 MG/DL (74-106) H Calcium Level 8.8 MG/DL (8.5-10.1) Microbiology Date/Time Source Procedure Growth Status 06/30/18 05:45 Blood Blood Culture - Preliminary NO GROWTH AFTER 48 HOURS Resulted 06/30/18 05:30 Blood Blood Culture - Preliminary NO GROWTH AFTER 48 HOURS Resulted 06/29/18 17:45 Blood Blood Culture - Preliminary NO GROWTH AFTER 48 HOURS Resulted 06/29/18 17:30 Blood Blood Culture - Preliminary NO GROWTH AFTER 48 HOURS Resulted 06/29/18 21:47 Nasal Nares MRSA Culture - Final NO METHICILLIN RESISTANT STAPH AUREUS... Complete 06/29/18 17:40 Urine,Clean Catch Urine Culture - Preliminary Klebsiella Pneumoniae - Mdr Resulted 06/29/18 23:00 Sacral Wound Gram Stain - Final Resulted 06/29/18 23:00 Wound Culture - Preliminary Gram Negative Bacillus 1 Gram Negative Bacillus 2 Gram Negative Bacillus 3 Gram Positive Cocci Resulted 06/29/18 21:47 Rectum VRE Culture - Final Enterococcus Faecium - Vre Enterococcus Faecalis - Vre Complete Intake and Output 07/01/18 07/02/18 19:00 07:00 Intake Total 795.000 ml 485 ml Output Total 350 ml Balance 445.000 ml 485 ml Intake Free Water 50 ml 100 ml IV Total 275.000 ml Tube Feeding 420 ml 385 ml Other 50 ml Output Urine Total 350 ml Assessment/Plan Problem List: (1) Hepatitis C (2) Dysphagia (3) UTI (urinary tract infection) Assessment & Plan: Multi drug resistant klebsiella pneumoniae. D/C cefepime and vanco; Start tigecycline per ID (4) Pressure ulcer, hip, left, unstageable (5) Severe protein-calorie malnutrition (6) Sacral decubitus ulcer, stage IV Assessment & Plan: Await surgery consult. Continue antibiotics per ID (7) Chronic respiratory failure (8) Cerebral vascular disease (9) HTN (hypertension) (10) Anoxic brain injury (11) Atrial fibrillation (12) Seizure disorder Assessment & Plan: Continue Keppra (13) CHF (congestive heart failure) Status: not improved Aaron Solis MD Jul 02, 2018 16:52
[2018-07-02 20:00] VITALS: BP 129/62
[2018-07-02] MEDS: PCA shift volume MISC SCH (20:20)
[2018-07-02] MEDS: PCA Morphine 1mg/ml 30 ML IV PRN (20:23)
[2018-07-02] MEDS ORDERED: Tigecycline 50 MG in D5W 110 ML IVPB SCH (21:00)
[2018-07-03] VITALS: BP 142/86
[2018-07-03] MEDS: PCA Morphine 1mg/ml 30 ML IV PRN ×4 (03:43→21:53)
[2018-07-03 04:00] VITALS: BP 78/46
[2018-07-03] MEDS: PCA shift volume MISC SCH ×2 (07:19→19:24)
[2018-07-03 08:00] VITALS: BP 121/70
[2018-07-03 08:22] LABS: HEMATOCRIT 29.6 % (42.0-52.0); HEMOGLOBIN 8.8 G/DL (14.2-18.0); MEAN CORPUSCULAR VOLUME 91 FL (80-99); PLATELET COUNT 637 K/UL (150-450); RED BLOOD COUNT 3.24 M/UL (4.70-6.10); RED CELL DISTRIBUTION WIDTH 17.5 % (11.6-14.8)
[2018-07-03 08:26] LABS: WHITE BLOOD COUNT 25.4 K/UL (4.8-10.8)
[2018-07-03] MEDS: levETIRAcetam 500mg/5ml Liquid GT SCH ×2 (09:00→21:05)
[2018-07-03 09:37] LABS: ANION GAP 7 mmol/L (5-15); BLOOD UREA NITROGEN 24 mg/dL (7-18); CALCIUM 8.6 MG/DL (8.5-10.1); CARBON DIOXIDE 24 MMOL/L (21-32); CHLORIDE 112 MMOL/L (98-107); CREATININE 0.7 MG/DL (0.55-1.30)
[2018-07-03 09:39] LABS: SODIUM 143 MMOL/L (136-145)
--- NOTE | 2018-07-03 11:17 | General Progress Note ---
Progress Note Progress Note Surgery: Patient well known to me from prior visits. Returns for medical care. Called to evaluate wounds. worsening leukocytosis today. stage IV sacral decubitus ulcer - no signs of active infection, down to coccyx, some granulation tissue, no significant fibrinous tissue stage IV left hip decubitus ulcer - worsening, no signs of active infection, 3 o 'clock tracking, some granulation tissue, fibrinous tissue needing debridement stage IV left buttock decubitus ulcer - no signs of active infection, no tracking, some granulation tissue, mild fibrinous tissue stage IV right hip decubitus ulcer - no signs of active infection, no tracking, some granulation tissue, moderate fibrinous tissue stage IV right buttock decubitus ulcer - no signs of active infection, no tracking, some granulation tissue, moderate fibrinous tissue bilateral heel/foot wounds - no signs of active infection. multiple ulcers stage I-IV. right great toe deformity Xray - Exam is very limited as the patient is extremely contracted. There is suggestion of a soft tissue ulcer in the right hip region. There is evidence of extensive proliferative new bone formation. Unable to adequately assess for presence of osteophytosis or fracture. All wounds present upon admission. As for care, for now please was wounds, place dry guaze to wound bed, then cover with foam dressing or ABD 2-3 times per day. Wounds seem to have worsened since last admission and have been progressively worsening over time now. He has multiple risk factors and very poor nutrition. Spoke to family during last admission and they want him to be comfortable. they understand his overall prognosis and would prefer his comfort. have requested to hold off on invasive debridement at this time. will cont with wound care. thank you for this consultation. will follow with recs. Derek Dong Jul 03, 2018 11:17
[2018-07-03 12:00] VITALS: BP 99/58
[2018-07-03 16:00] VITALS: BP 80/58
[2018-07-03] MEDS ORDERED: NS 275ml ONE (16:09)
[2018-07-03] MEDS ORDERED: 1/2 NS 1000ml IV ONE (16:09)
--- NOTE | 2018-07-03 17:45 | Infectious Diseases Prog Note ---
Assessment/Plan Assessment/Plan 58 yo male who presented from a [facility] vent dependent p/w with UTI. # Sepsis secondary to MDR UTI - f/u urine culture: MDR K.pna (S Tigecycline) - blood cultures - NTD #Leukocytosis, incerased # Fever Now resolved # Multiple large bed sores. ; no infection - Some down to bone - no surrounding cellulitis - Needs surgical evaluation - Ventricular tachycardia - Atrial Fibrillation - Heart Failure with ICD - CVD - Dysphagia with G-tube - Vent dependent PLAN: -Patient made comfort care- abx were discontinued -07/03 SP Tigecycline #3 -07/01 SP vancomycin #2, Cefepime #2 ID WILL SIGN OFF NOW, PLEASE CALL BACK IF NEEDED. Subjective Allergies: Coded Allergies: No Known Allergies (Unverified , 03/07/17) Subjective afebrile wbc increased bcx NTD patientn made comfort care Objective Vital Signs Last 24 Hour Vital Signs Date Time Temp Pulse Resp B/P (MAP) Pulse Ox O2 Delivery O2 Flow Rate FiO2 07/03/18 16:40 18 07/03/18 16:00 98.1 102 20 80/58 (65) 95 98.1 07/03/18 13:13 T-piece 14.0 100 07/03/18 13:13 98 T-piece 14.0 100 07/03/18 12:37 18 07/03/18 12:00 98.9 104 20 99/58 (72) 95 98.9 07/03/18 10:17 18 07/03/18 10:16 18 07/03/18 10:10 97.6 07/03/18 09:00 Room Air 07/03/18 08:00 97.6 89 20 121/70 (87) 95 97.6 07/03/18 08:00 17 07/03/18 07:32 T-piece 14.0 80 07/03/18 07:32 98 T-piece 14.0 80 07/03/18 05:45 18 07/03/18 05:15 18 07/03/18 04:45 18 07/03/18 04:30 18 07/03/18 04:15 18 07/03/18 04:00 19 07/03/18 04:00 97.1 99 20 78/46 (57) 95 97.1 07/03/18 02:14 19 07/03/18 01:15 T-piece 14.0 80 18 01:15 94 T-piece 14.0 80 18 00:00 97.9 132 22 142/86 (104) 99 97.9 18 22:14 20 18 21:44 20 18 21:14 20 18 21:00 Room Air 07/02/18 20:59 20 07/02/18 20:44 20 07/02/18 20:29 20 07/02/18 20:00 97.7 148 22 129/62 (84) 76 97.7 07/02/18 19:01 T-piece 12.0 40 07/02/18 19:01 99 T-piece 12.0 40 Height (Feet): 5 Height (Inches): 10.00 Weight (Pounds): 132 Objective Gen: NAD, Trached on vent HEENT: NCAT, MMM, EOMI, LUNGS: CTAB, No W/C, No Accessory muscle use CARDS: RRR, S1, S2, No M/R/G, ABD: Soft, NT, ND, No R/G, + BS, PEG Some erosion of skin NEURO: Blinks eyes. Does not move ext. SKIN: warm/dry, No rashes, multiple bed sores. Buttock region (some down to bone ), feet and knees. No surrounding erythema. Laboratory Tests Test 07/03/18 07:50 White Blood Count 25.4 K/UL (4.8-10.8) #*H Red Blood Count 3.24 M/UL (4.70-6.10) L Hemoglobin 8.8 G/DL (14.2-18.0) L Hematocrit 29.6 % (42.0-52.0) L Mean Corpuscular Volume 91 FL (80-99) Mean Corpuscular Hemoglobin 27.1 PG (27.0-31.0) Mean Corpuscular Hemoglobin Concent 29.7 G/DL (32.0-36.0) L Red Cell Distribution Width 17.5 % (11.6-14.8) H Platelet Count 637 K/UL (150-450) H Mean Platelet Volume 5.6 FL (6.5-10.1) L Neutrophils (%) (Auto) % (45.0-75.0) Lymphocytes (%) (Auto) % (20.0-45.0) Monocytes (%) (Auto) % (1.0-10.0) Eosinophils (%) (Auto) % (0.0-3.0) Basophils (%) (Auto) % (0.0-2.0) Differential Total Cells Counted 100 Neutrophils % (Manual) 77 % (45-75) H Lymphocytes % (Manual) 12 % (20-45) L Monocytes % (Manual) 8 % (1-10) Eosinophils % (Manual) 3 % (0-3) Basophils % (Manual) 0 % (0-2) Band Neutrophils 0 % (0-8) Platelet Estimate Increased H Platelet Morphology Normal Hypochromasia 3+ Anisocytosis 1+ Sodium Level 143 MMOL/L (136-145) Potassium Level 6.0 MMOL/L (3.5-5.1) *H Chloride Level 112 MMOL/L (98-107) H Carbon Dioxide Level 24 MMOL/L (21-32) Anion Gap 7 mmol/L (5-15) Blood Urea Nitrogen 24 mg/dL (7-18) H Creatinine 0.7 MG/DL (0.55-1.30) Estimat Glomerular Filtration Rate > 60 mL/min (>60) Glucose Level 93 MG/DL (74-106) Calcium Level 8.6 MG/DL (8.5-10.1) Vancomycin Level Trough 12.1 ug/mL (5.0-12.0) H Current Medications Medications (Trade) Dose Ordered Sig/Tameka Route PRN Reason Start Time Stop Time Status Last Admin Dose Admin Acetaminophen (Tylenol) 650 mg Q4H PRN ORAL fever 07/01/18 20:33 07/30/18 20:32 Albuterol/ Ipratropium (Albuterol/ Ipratropium) 3 ml Q4H PRN HHN Shortness of Breath 07/01/18 20:33 07/05/18 20:32 Levetiracetam (Keppra) 500 mg Q12HR GT 07/02/18 09:00 08/01/18 08:59 07/03/18 09:00 Miscellaneous Medication (EXECUTIVE CANDIDATE DEVELOPER Rate Change) 1 ea PRN MISC rate change 07/02/18 15:30 07/04/18 15:29 Miscellaneous Medication (EXECUTIVE CANDIDATE DEVELOPER shift volume) 1 ea Q12HR@0700,1900 MISC 07/02/18 19:00 07/04/18 18:59 07/03/18 07:19 Morphine Sulfate 30 ml @ 0 mls/hr EXECUTIVE CANDIDATE DEVELOPER Protocol PRN IV For Pain 07/02/18 15:21 07/04/18 15:20 07/03/18 16:10 Morphine Sulfate (Morphine Sulfate) 4 mg Q1H PRN IV tachycardia> 20 07/01/18 20:33 07/08/18 20:32 Naloxone HCl (Narcan) 0.1 mg PRN IV RR<10 OR SBP<90 07/02/18 15:30 07/04/18 15:29 Ondansetron HCl (Zofran) 4 mg Q6H PRN IVP Nausea & Vomiting 07/01/18 20:33 07/31/18 20:32 Radha Saini M.D. Jul 03, 2018 17:45
--- NOTE | 2018-07-03 18:09 | Pulmonology Progress Note ---
Assessment/Plan Problems: (1) Need for comfort care (2) Anoxic brain injury (3) Sacral decubitus ulcer, stage IV (4) AICD (automatic cardioverter/defibrillator) present (5) VT (ventricular tachycardia) (6) Seizure disorder (7) EF of 30 (8) Severe protein-calorie malnutrition (9) Pressure ulcer, hip, left, unstageable (10) Diabetes mellitus type II, uncontrolled Assessment/Plan comfort care Morphine for comfort pts sister understands the prognosis and agrees with comfort care and Morphine drip comfortable avoid blood testing Subjective ROS Limited/Unobtainable: No Constitutional: Reports: no symptoms HEENT: Repors: no symptoms Respiratory: Reports: no symptoms Allergies: Coded Allergies: No Known Allergies (Unverified , 03/07/17) Objective Last 24 Hour Vital Signs Date Time Temp Pulse Resp B/P (MAP) Pulse Ox O2 Delivery O2 Flow Rate FiO2 07/03/18 16:40 18 07/03/18 16:00 98.1 102 20 80/58 (65) 95 98.1 07/03/18 13:13 T-piece 14.0 100 07/03/18 13:13 98 T-piece 14.0 100 07/03/18 12:37 18 07/03/18 12:00 98.9 104 20 99/58 (72) 95 98.9 07/03/18 10:17 18 07/03/18 10:16 18 07/03/18 10:10 97.6 07/03/18 09:00 Room Air 07/03/18 08:00 97.6 89 20 121/70 (87) 95 97.6 07/03/18 08:00 17 07/03/18 07:32 T-piece 14.0 80 07/03/18 07:32 98 T-piece 14.0 80 07/03/18 05:45 18 07/03/18 05:15 18 07/03/18 04:45 18 07/03/18 04:30 18 07/03/18 04:15 18 07/03/18 04:00 19 07/03/18 04:00 97.1 99 20 78/46 (57) 95 97.1 07/03/18 02:14 19 07/03/18 01:15 T-piece 14.0 80 07/03/18 01:15 94 T-piece 14.0 80 07/03/18 00:00 97.9 132 22 142/86 (104) 99 97.9 07/02/18 22:14 20 07/02/18 21:44 20 07/02/18 21:14 20 18 21:00 Room Air 07/02/18 20:59 20 07/02/18 20:44 20 07/02/18 20:29 20 07/02/18 20:00 97.7 148 22 129/62 (84) 76 97.7 07/02/18 19:01 T-piece 12.0 40 07/02/18 19:01 99 T-piece 12.0 40 Intake and Output 07/02/18 07/03/18 19:00 07:00 Intake Total 315 ml Output Total 950 ml 350 ml Balance -635 ml -350 ml Tube Feeding 315 ml Output Urine Total 950 ml 350 ml General Appearance: cachetic HEENT: normocephalic, atraumatic Respiratory/Chest: chest wall non-tender, lungs clear Cardiovascular: normal peripheral pulses, normal rate Abdomen: normal bowel sounds, soft, non tender Genitourinary: normal external genitalia Extremities: no clubbing Skin: no ulcers 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: no motor/sensory deficits Laboratory Tests 07/03/18 07:50: White Blood Count 25.4#*H, Red Blood Count 3.24L, Hemoglobin 8.8L, Hematocrit 29.6L, Mean Corpuscular Volume 91, Mean Corpuscular Hemoglobin 27.1, Mean Corpuscular Hemoglobin Concent 29.7L, Red Cell Distribution Width 17.5H, Platelet Count 637H, Mean Platelet Volume 5.6L, Neutrophils (%) (Auto) , Lymphocytes (%) (Auto) , Monocytes (%) (Auto) , Eosinophils (%) (Auto) , Basophils (%) (Auto) , Differential Total Cells Counted 100, Neutrophils % ( Manual) 77H, Lymphocytes % (Manual) 12L, Monocytes % (Manual) 8, Eosinophils % ( Manual) 3, Basophils % (Manual) 0, Band Neutrophils 0, Platelet Estimate IncreasedH, Platelet Morphology Normal, Hypochromasia 3+, Anisocytosis 1+, Sodium Level 143, Potassium Level 6.0*H, Chloride Level 112H, Carbon Dioxide Level 24, Anion Gap 7, Blood Urea Nitrogen 24H, Creatinine 0.7, Estimat Glomerular Filtration Rate > 60, Glucose Level 93, Calcium Level 8.6, Vancomycin Level Trough 12.1H Current Medications Medications (Trade) Dose Ordered Sig/Tameka Route PRN Reason Start Time Stop Time Status Last Admin Dose Admin Acetaminophen (Tylenol) 650 mg Q4H PRN ORAL fever 07/01/18 20:33 07/30/18 20:32 Albuterol/ Ipratropium (Albuterol/ Ipratropium) 3 ml Q4H PRN HHN Shortness of Breath 07/01/18 20:33 07/05/18 20:32 Levetiracetam (Keppra) 500 mg Q12HR GT 07/02/18 09:00 08/01/18 08:59 07/03/18 09:00 Miscellaneous Medication (PORTFOLIO ACCOUNTANT Rate Change) 1 ea PRN MISC rate change 07/02/18 15:30 07/04/18 15:29 Miscellaneous Medication (PORTFOLIO ACCOUNTANT shift volume) 1 ea Q12HR@0700,1900 MISC 07/02/18 19:00 07/04/18 18:59 07/03/18 07:19 Morphine Sulfate 30 ml @ 0 mls/hr PORTFOLIO ACCOUNTANT Protocol PRN IV For Pain 07/02/18 15:21 07/04/18 15:20 07/03/18 16:10 Morphine Sulfate (Morphine Sulfate) 4 mg Q1H PRN IV tachycardia> 20 07/01/18 20:33 07/08/18 20:32 Naloxone HCl (Narcan) 0.1 mg PRN IV RR<10 OR SBP<90 07/02/18 15:30 07/04/18 15:29 Ondansetron HCl (Zofran) 4 mg Q6H PRN IVP Nausea & Vomiting 07/01/18 20:33 07/31/18 20:32 Shani Moses MD Jul 03, 2018 18:09
--- NOTE | 2018-07-03 19:47 | Internal Med Progress Note ---
Subjective Date of Service: Jul 03, 2018 Physician Name Aaron Solis Attending Physician Roland Box MD Current Medications Medications (Trade) Dose Ordered Sig/Tameka Route PRN Reason Start Time Stop Time Status Last Admin Dose Admin Acetaminophen (Tylenol) 650 mg Q4H PRN ORAL fever 07/01/18 20:33 07/30/18 20:32 Albuterol/ Ipratropium (Albuterol/ Ipratropium) 3 ml Q4H PRN HHN Shortness of Breath 07/01/18 20:33 07/05/18 20:32 Levetiracetam (Keppra) 500 mg Q12HR GT 07/02/18 09:00 08/01/18 08:59 07/03/18 09:00 Miscellaneous Medication (SEARCH MANAGER Rate Change) 1 ea PRN MISC rate change 07/02/18 15:30 07/04/18 15:29 Miscellaneous Medication (SEARCH MANAGER shift volume) 1 ea Q12HR@0700,1900 MISC 07/02/18 19:00 07/04/18 18:59 07/03/18 19:24 Morphine Sulfate 30 ml @ 0 mls/hr SEARCH MANAGER Protocol PRN IV For Pain 07/02/18 15:21 07/04/18 15:20 07/03/18 16:10 Morphine Sulfate (Morphine Sulfate) 4 mg Q1H PRN IV tachycardia> 20 07/01/18 20:33 07/08/18 20:32 Naloxone HCl (Narcan) 0.1 mg PRN IV RR<10 OR SBP<90 07/02/18 15:30 07/04/18 15:29 Ondansetron HCl (Zofran) 4 mg Q6H PRN IVP Nausea & Vomiting 07/01/18 20:33 07/31/18 20:32 Allergies: Coded Allergies: No Known Allergies (Unverified , 03/07/17) ROS Limited/Unobtainable: Yes Subjective 58 YO M with chronic respiratory failure, admitted with leukocytosis. Now UTI. Cover for Int Med-Dr Box. Patient now on comfort care Objective Last Vital Signs Date Time Temp Pulse Resp B/P (MAP) Pulse Ox O2 Delivery O2 Flow Rate FiO2 07/03/18 17:40 18 07/03/18 16:00 98.1 102 80/58 (65) 95 98.1 07/03/18 13:13 T-piece 14.0 100 Laboratory Tests Test 07/03/18 07:50 White Blood Count 25.4 K/UL (4.8-10.8) #*H Red Blood Count 3.24 M/UL (4.70-6.10) L Hemoglobin 8.8 G/DL (14.2-18.0) L Hematocrit 29.6 % (42.0-52.0) L Mean Corpuscular Volume 91 FL (80-99) Mean Corpuscular Hemoglobin 27.1 PG (27.0-31.0) Mean Corpuscular Hemoglobin Concent 29.7 G/DL (32.0-36.0) L Red Cell Distribution Width 17.5 % (11.6-14.8) H Platelet Count 637 K/UL (150-450) H Mean Platelet Volume 5.6 FL (6.5-10.1) L Neutrophils (%) (Auto) % (45.0-75.0) Lymphocytes (%) (Auto) % (20.0-45.0) Monocytes (%) (Auto) % (1.0-10.0) Eosinophils (%) (Auto) % (0.0-3.0) Basophils (%) (Auto) % (0.0-2.0) Differential Total Cells Counted 100 Neutrophils % (Manual) 77 % (45-75) H Lymphocytes % (Manual) 12 % (20-45) L Monocytes % (Manual) 8 % (1-10) Eosinophils % (Manual) 3 % (0-3) Basophils % (Manual) 0 % (0-2) Band Neutrophils 0 % (0-8) Platelet Estimate Increased H Platelet Morphology Normal Hypochromasia 3+ Anisocytosis 1+ Sodium Level 143 MMOL/L (136-145) Potassium Level 6.0 MMOL/L (3.5-5.1) *H Chloride Level 112 MMOL/L (98-107) H Carbon Dioxide Level 24 MMOL/L (21-32) Anion Gap 7 mmol/L (5-15) Blood Urea Nitrogen 24 mg/dL (7-18) H Creatinine 0.7 MG/DL (0.55-1.30) Estimat Glomerular Filtration Rate > 60 mL/min (>60) Glucose Level 93 MG/DL (74-106) Calcium Level 8.6 MG/DL (8.5-10.1) Vancomycin Level Trough 12.1 ug/mL (5.0-12.0) H Intake and Output 07/02/18 07/03/18 19:00 07:00 Intake Total 315 ml Output Total 950 ml 350 ml Balance -635 ml -350 ml Tube Feeding 315 ml Output Urine Total 950 ml 350 ml Objective General Appearance: alert, mild distress, thin EENT: PERRL/EOMI, normal ENT inspection Neck: non-tender, normal alignment, supple Cardiovascular: normal peripheral pulses, normal rate, regular rhythm, no gallop/murmur, no JVD Respiratory/Chest: trach; respiratory distress, crackles/rales, rhonchi - bilaterally, expiratory wheezing Abdomen: normal bowel sounds, non tender, soft, no organomegaly, no mass Extremities: other - contractures Neurologic: computer hardware designer 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 normal Skin: normal pigmentation, warm/dry Assessment/Plan Problem List: (1) Hepatitis C (2) Dysphagia (3) UTI (urinary tract infection) Assessment & Plan: Multi drug resistant klebsiella pneumoniae. D/C cefepime and vanco; Start tigecycline per ID (4) Pressure ulcer, hip, left, unstageable (5) Severe protein-calorie malnutrition (6) Sacral decubitus ulcer, stage IV Assessment & Plan: Await surgery consult. Continue antibiotics per ID (7) Chronic respiratory failure (8) Cerebral vascular disease (9) HTN (hypertension) (10) Anoxic brain injury (11) Atrial fibrillation (12) Seizure disorder Assessment & Plan: Continue Keppra (13) CHF (congestive heart failure) Status: not improved Assessment/Plan Comfort care per family request Aaron Solis MD Jul 03, 2018 19:46
[2018-07-03 20:00] VITALS: BP 84/51
[2018-07-04] VITALS: BP 80/50
[2018-07-04 04:00] VITALS: BP 110/77
[2018-07-04] MEDS: PCA Morphine 1mg/ml 30 ML IV PRN ×4 (04:01→23:07)
[2018-07-04] MEDS: PCA shift volume MISC SCH ×2 (07:00→19:28)
[2018-07-04 08:00] VITALS: BP 80/50
[2018-07-04] MEDS: levETIRAcetam 500mg/5ml Liquid GT SCH ×2 (09:58→21:19)
[2018-07-04 12:00] VITALS: BP 80/41
[2018-07-04 16:00] VITALS: BP 110/73
[2018-07-04] MEDS ORDERED: PCA Education Pamphlet MISC ONE (16:45)
[2018-07-04] MEDS ORDERED: Rate Change PCA 1 Each MISC PRN (16:45)
--- NOTE | 2018-07-04 18:53 | Internal Med Progress Note ---
Subjective Date of Service: Jul 04, 2018 Physician Name IrmaAaron Attending Physician Roland Box MD Current Medications Medications (Trade) Dose Ordered Sig/Tameka Route PRN Reason Start Time Stop Time Status Last Admin Dose Admin Acetaminophen (Tylenol) 650 mg Q4H PRN ORAL fever 07/01/18 20:33 07/30/18 20:32 Albuterol/ Ipratropium (Albuterol/ Ipratropium) 3 ml Q4H PRN HHN Shortness of Breath 07/01/18 20:33 07/05/18 20:32 Levetiracetam (Keppra) 500 mg Q12HR GT 07/02/18 09:00 08/01/18 08:59 07/04/18 09:58 Miscellaneous Medication (AWAKE OVERNIGHT MONITOR Rate Change) 1 ea DAILY PRN MISC rate change 07/04/18 16:45 07/06/18 16:44 Miscellaneous Medication (AWAKE OVERNIGHT MONITOR shift volume) 1 ea Q12HR@0700,1900 MISC 07/04/18 19:00 07/06/18 18:59 Morphine Sulfate 30 ml @ 0 mls/hr Q24H PRN IV For Pain 07/04/18 16:45 07/06/18 16:44 07/04/18 16:53 Morphine Sulfate (Morphine Sulfate) 4 mg Q1H PRN IV tachycardia> 20 07/01/18 20:33 07/08/18 20:32 Ondansetron HCl (Zofran) 4 mg Q6H PRN IVP Nausea & Vomiting 07/01/18 20:33 07/31/18 20:32 Allergies: Coded Allergies: No Known Allergies (Unverified , 03/07/17) ROS Limited/Unobtainable: Yes Subjective 58 YO M with chronic respiratory failure, admitted with leukocytosis. Now UTI. Cover for Int Med-Dr Box. Patient now on comfort care Objective Last Vital Signs Date Time Temp Pulse Resp B/P (MAP) Pulse Ox O2 Delivery O2 Flow Rate FiO2 07/04/18 17:23 96.8 07/04/18 16:00 14 07/04/18 16:00 118 110/73 (85) 95 07/04/18 12:35 T-piece 14.0 70 Intake and Output 07/03/18 07/04/18 19:00 07:00 Intake Total 70 ml Output Total 900 ml 800 ml Balance -900 ml -730 ml IV Total 70 ml Output Urine Total 900 ml 800 ml Objective General Appearance: alert, mild distress, thin EENT: PERRL/EOMI, normal ENT inspection Neck: non-tender, normal alignment, supple Cardiovascular: normal peripheral pulses, normal rate, regular rhythm, no gallop/murmur, no JVD Respiratory/Chest: trach; respiratory distress, crackles/rales, rhonchi - bilaterally, expiratory wheezing Abdomen: normal bowel sounds, non tender, soft, no organomegaly, no mass Extremities: other - contractures Neurologic: retail field merchandiser 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 normal Skin: normal pigmentation, warm/dry Assessment/Plan Problem List: (1) Hepatitis C (2) Dysphagia (3) UTI (urinary tract infection) Assessment & Plan: Multi drug resistant klebsiella pneumoniae. D/C cefepime and vanco; Start tigecycline per ID (4) Pressure ulcer, hip, left, unstageable (5) Severe protein-calorie malnutrition (6) Sacral decubitus ulcer, stage IV Assessment & Plan: Await surgery consult. Continue antibiotics per ID (7) Chronic respiratory failure (8) Cerebral vascular disease (9) HTN (hypertension) (10) Anoxic brain injury (11) Atrial fibrillation (12) Seizure disorder Assessment & Plan: Continue Keppra (13) CHF (congestive heart failure) Assessment/Plan Comfort care per family request. Discharge plan: [facility] for [facility] Aaron Solis MD Jul 04, 2018 18:53
[2018-07-04] MEDS ORDERED: PCA shift volume MISC SCH (19:00)
[2018-07-04 20:00] VITALS: BP 157/63
[2018-07-05] VITALS: BP 77/42
[2018-07-05 04:00] VITALS: BP 127/89
[2018-07-05] MEDS: PCA Morphine 1mg/ml 30 ML IV PRN ×3 (05:34→17:59)
[2018-07-05] MEDS: PCA shift volume MISC SCH ×2 (07:27→19:21)
[2018-07-05 08:00] VITALS: BP 124/82
[2018-07-05] MEDS: levETIRAcetam 500mg/5ml Liquid GT SCH ×2 (09:27→21:00)
[2018-07-05 12:00] VITALS: BP 82/35
--- NOTE | 2018-07-05 14:55 | Internal Med Progress Note ---
Subjective Date of Service: Jul 05, 2018 Physician Name IrmaAaron Attending Physician Roland Box MD Current Medications Medications (Trade) Dose Ordered Sig/Tameka Route PRN Reason Start Time Stop Time Status Last Admin Dose Admin Acetaminophen (Tylenol) 650 mg Q4H PRN ORAL fever 07/01/18 20:33 07/30/18 20:32 Albuterol/ Ipratropium (Albuterol/ Ipratropium) 3 ml Q4H PRN HHN Shortness of Breath 07/01/18 20:33 07/05/18 20:32 Levetiracetam (Keppra) 500 mg Q12HR GT 07/02/18 09:00 08/01/18 08:59 07/05/18 09:27 Miscellaneous Medication (INSTRUMENTAL TEACHER Rate Change) 1 ea DAILY PRN MISC rate change 07/04/18 16:45 07/06/18 16:44 Miscellaneous Medication (INSTRUMENTAL TEACHER shift volume) 1 ea Q12HR@0700,1900 MISC 07/04/18 19:00 07/06/18 18:59 07/05/18 07:27 Morphine Sulfate 30 ml @ 0 mls/hr Q24H PRN IV For Pain 07/04/18 16:45 07/06/18 16:44 07/05/18 11:26 Morphine Sulfate (Morphine Sulfate) 4 mg Q1H PRN IV tachycardia> 20 07/01/18 20:33 07/08/18 20:32 Ondansetron HCl (Zofran) 4 mg Q6H PRN IVP Nausea & Vomiting 07/01/18 20:33 07/31/18 20:32 Allergies: Coded Allergies: No Known Allergies (Unverified , 03/07/17) ROS Limited/Unobtainable: Yes Subjective 58 YO M with chronic respiratory failure, admitted with leukocytosis. Now UTI. Cover for Int Med-Dr Box. Patient now on comfort care Objective Last Vital Signs Date Time Temp Pulse Resp B/P (MAP) Pulse Ox O2 Delivery O2 Flow Rate FiO2 07/05/18 12:00 97 T-piece 12.0 40 07/05/18 12:00 97.8 105 10 82/35 (51) 97.8 Intake and Output 07/04/18 07/05/18 19:00 07:00 Intake Total 10 ml 55 ml Output Total 400 ml 300 ml Balance -390 ml -245 ml IV Total 10 ml 55 ml Output Urine Total 400 ml 300 ml Objective General Appearance: alert, mild distress, thin EENT: PERRL/EOMI, normal ENT inspection Neck: non-tender, normal alignment, supple Cardiovascular: normal peripheral pulses, normal rate, regular rhythm, no gallop/murmur, no JVD Respiratory/Chest: trach; respiratory distress, crackles/rales, rhonchi - bilaterally, expiratory wheezing Abdomen: normal bowel sounds, non tender, soft, no organomegaly, no mass Extremities: other - contractures Neurologic: drafting clerk 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 normal Skin: normal pigmentation, warm/dry Assessment/Plan Problem List: (1) Hepatitis C (2) Dysphagia (3) UTI (urinary tract infection) Assessment & Plan: Multi drug resistant klebsiella pneumoniae. D/C amtibiiotics per ID (4) Pressure ulcer, hip, left, unstageable (5) Severe protein-calorie malnutrition (6) Sacral decubitus ulcer, stage IV Assessment & Plan: Await surgery consult. Continue antibiotics per ID (7) Chronic respiratory failure (8) Cerebral vascular disease (9) HTN (hypertension) (10) Anoxic brain injury (11) Atrial fibrillation (12) Seizure disorder Assessment & Plan: Continue Keppra (13) CHF (congestive heart failure) Assessment/Plan Comfort care per family request. Discharge plan: [facility] for H[facility] Aaron Solis MD Jul 05, 2018 14:55
[2018-07-05 15:43] VITALS: BP 77/46
[2018-07-05 20:00] VITALS: BP 105/54
[2018-07-06] VITALS: BP 94/51
[2018-07-06] MEDS: PCA Morphine 1mg/ml 30 ML IV PRN ×4 (00:02→22:32)
[2018-07-06 04:00] VITALS: BP 102/56
[2018-07-06] MEDS: PCA shift volume MISC SCH ×2 (07:25→19:40)
[2018-07-06 08:00] VITALS: BP 129/62
[2018-07-06] MEDS: levETIRAcetam 500mg/5ml Liquid GT SCH ×2 (09:24→20:58)
--- NOTE | 2018-07-06 11:45 | Pulmonology Progress Note ---
Assessment/Plan Problems: (1) Need for comfort care (2) Anoxic brain injury (3) Sacral decubitus ulcer, stage IV (4) AICD (automatic cardioverter/defibrillator) present (5) VT (ventricular tachycardia) (6) Seizure disorder (7) EF of 30 (8) Severe protein-calorie malnutrition (9) Pressure ulcer, hip, left, unstageable (10) Diabetes mellitus type II, uncontrolled Assessment/Plan valium prn for seizures comfortable comfort care Morphine for comfort pts sister understands the prognosis and agrees with comfort care and Morphine drip comfortable avoid blood testing Subjective ROS Limited/Unobtainable: No Constitutional: Reports: no symptoms HEENT: Repors: no symptoms Respiratory: Reports: no symptoms Allergies: Coded Allergies: No Known Allergies (Unverified , 03/07/17) Objective Last 24 Hour Vital Signs Date Time Temp Pulse Resp B/P (MAP) Pulse Ox O2 Delivery O2 Flow Rate FiO2 07/06/18 08:00 97.7 98 21 129/62 (84) 94 97.7 07/06/18 08:00 T-piece 07/06/18 07:55 94 T-piece 12.0 40 07/06/18 07:55 T-piece 12.0 40 07/06/18 07:20 20 07/06/18 06:20 20 07/06/18 04:00 10 07/06/18 04:00 99.8 119 21 102/56 (71) 94 99.8 07/06/18 01:18 T-piece 12.0 40 07/06/18 01:17 97 T-piece 12.0 40 07/06/18 00:02 20 07/06/18 00:00 96.9 118 18 94/51 (65) 96 96.9 07/06/18 00:00 10 07/05/18 21:00 T-piece 07/05/18 20:00 99.3 105 18 105/54 (71) 99 99.3 07/05/18 20:00 10 07/05/18 19:27 97 T-piece 12.0 40 07/05/18 19:27 T-piece 12.0 40 07/05/18 18:29 97.7 07/05/18 18:00 18 07/05/18 17:59 97.7 07/05/18 17:56 20 07/05/18 16:00 20 07/05/18 15:43 97.7 109 18 77/46 (56) 97 97.7 07/05/18 12:00 97 T-piece 12.0 40 07/05/18 12:00 T-piece 12.0 40 07/05/18 12:00 97.8 105 10 82/35 (51) 97 97.8 Intake and Output 07/05/18 07/06/18 19:00 07:00 Intake Total 5 ml 55 ml Output Total 120 ml 850 ml Balance -115 ml -795 ml IV Total 5 ml 55 ml Output Urine Total 120 ml 850 ml # Bowel Movements 1 General Appearance: WD/WN HEENT: normocephalic, atraumatic Respiratory/Chest: chest wall non-tender, lungs clear Cardiovascular: normal peripheral pulses, normal rate Abdomen: normal bowel sounds, soft, non tender Genitourinary: normal external genitalia Extremities: no clubbing Skin: no rash, no ulcers 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: radiology interventional physician 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 normal, no motor/sensory deficits Lymphatic: no neck adenopathy Musculoskeletal: normal muscle bulk Current Medications Medications (Trade) Dose Ordered Sig/Tameka Route PRN Reason Start Time Stop Time Status Last Admin Dose Admin Acetaminophen (Tylenol) 650 mg Q4H PRN ORAL fever 07/01/18 20:33 07/30/18 20:32 Levetiracetam (Keppra) 500 mg Q12HR GT 07/02/18 09:00 08/01/18 08:59 07/06/18 09:24 Miscellaneous Medication (WIG MAKER Rate Change) 1 ea DAILY PRN MISC rate change 07/04/18 16:45 07/06/18 16:44 Miscellaneous Medication (WIG MAKER shift volume) 1 ea Q12HR@0700,1900 MISC 07/04/18 19:00 07/06/18 18:59 07/06/18 07:25 Morphine Sulfate 30 ml @ 0 mls/hr Q24H PRN IV For Pain 07/04/18 16:45 07/06/18 16:44 07/06/18 06:20 Morphine Sulfate (Morphine Sulfate) 4 mg Q1H PRN IV tachycardia> 20 07/01/18 20:33 07/08/18 20:32 Ondansetron HCl (Zofran) 4 mg Q6H PRN IVP Nausea & Vomiting 07/01/18 20:33 07/31/18 20:32 Shani Moses MD Jul 06, 2018 11:45
[2018-07-06 11:52] VITALS: BP 110/62
[2018-07-06 16:00] VITALS: BP 142/62
[2018-07-06] MEDS ORDERED: Rate Change PCA 1 Each MISC PRN (16:34)
--- NOTE | 2018-07-06 19:28 | Internal Med Progress Note ---
Subjective Date of Service: Jul 06, 2018 Physician Name Aaron Solis Attending Physician Roland Box MD Current Medications Medications (Trade) Dose Ordered Sig/Tameka Route PRN Reason Start Time Stop Time Status Last Admin Dose Admin Acetaminophen (Tylenol) 650 mg Q4H PRN ORAL fever 07/01/18 20:33 07/30/18 20:32 Diazepam (Valium) 5 mg Q6H PRN ORAL seizures 07/06/18 11:45 07/13/18 11:44 Levetiracetam (Keppra) 500 mg Q12HR GT 07/02/18 09:00 08/01/18 08:59 07/06/18 09:24 Miscellaneous Medication (DIGITIZER OPERATOR Rate Change) 1 ea DAILY PRN MISC For Pain 07/06/18 16:34 07/08/18 16:33 Miscellaneous Medication (DIGITIZER OPERATOR shift volume) 1 ea Q12HR@0700,1900 MISC 07/07/18 07:00 07/09/18 06:59 Morphine Sulfate 30 ml @ 0 mls/hr Q24H PRN IV For Pain 07/06/18 16:45 07/08/18 16:44 07/06/18 16:43 Morphine Sulfate (Morphine Sulfate) 4 mg Q1H PRN IV tachycardia> 20 07/01/18 20:33 07/08/18 20:32 Ondansetron HCl (Zofran) 4 mg Q6H PRN IVP Nausea & Vomiting 07/01/18 20:33 07/31/18 20:32 Allergies: Coded Allergies: No Known Allergies (Unverified , 03/07/17) ROS Limited/Unobtainable: Yes Subjective 58 YO M with chronic respiratory failure, admitted with leukocytosis. Now UTI. Cover for Int Med-Dr Box. Patient now on comfort care. Discharge held over weekend-not accepted at [facility] Objective Last Vital Signs Date Time Temp Pulse Resp B/P (MAP) Pulse Ox O2 Delivery O2 Flow Rate FiO2 07/06/18 16:44 20 07/06/18 16:00 98.1 113 142/62 (88) 94 98.1 07/06/18 12:52 T-piece 12.0 40 Intake and Output 07/05/18 07/06/18 19:00 07:00 Intake Total 5 ml 55 ml Output Total 120 ml 850 ml Balance -115 ml -795 ml IV Total 5 ml 55 ml Output Urine Total 120 ml 850 ml # Bowel Movements 1 Objective General Appearance: alert, mild distress, thin EENT: PERRL/EOMI, normal ENT inspection Neck: non-tender, normal alignment, supple Cardiovascular: normal peripheral pulses, normal rate, regular rhythm, no gallop/murmur, no JVD Respiratory/Chest: trach; respiratory distress, crackles/rales, rhonchi - bilaterally, expiratory wheezing Abdomen: normal bowel sounds, non tender, soft, no organomegaly, no mass Extremities: other - contractures Neurologic: senior warehouse clerk 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 normal Skin: normal pigmentation, warm/dry Assessment/Plan Problem List: (1) Hepatitis C (2) Dysphagia (3) UTI (urinary tract infection) Assessment & Plan: Multi drug resistant klebsiella pneumoniae. D/C amtibiiotics per ID (4) Pressure ulcer, hip, left, unstageable (5) Severe protein-calorie malnutrition (6) Sacral decubitus ulcer, stage IV Assessment & Plan: Await surgery consult. Continue antibiotics per ID (7) Chronic respiratory failure (8) Cerebral vascular disease (9) HTN (hypertension) (10) Anoxic brain injury (11) Atrial fibrillation (12) Seizure disorder Assessment & Plan: Continue Keppra (13) CHF (congestive heart failure) Status: deteriorating Assessment/Plan Comfort care per family request. Discharge plan: Not accepted at [facility]-see case management note. Aaron Solis MD Jul 06, 2018 19:28
[2018-07-06 20:00] VITALS: BP 113/64
[2018-07-07] VITALS: BP 111/58
[2018-07-07 04:00] VITALS: BP 99/52
[2018-07-07] MEDS: PCA Morphine 1mg/ml 30 ML IV PRN ×4 (04:46→20:40)
[2018-07-07] MEDS ORDERED: PCA shift volume MISC SCH (07:00)
[2018-07-07] MEDS: PCA shift volume MISC SCH ×2 (07:00→19:20)
[2018-07-07 08:00] VITALS: BP 109/67
[2018-07-07] MEDS: levETIRAcetam 500mg/5ml Liquid GT SCH ×2 (09:16→20:45)
[2018-07-07 12:00] VITALS: BP 124/60
--- NOTE | 2018-07-07 14:04 | Pulmonology Progress Note ---
Assessment/Plan Problems: (1) Need for comfort care (2) Anoxic brain injury (3) Sacral decubitus ulcer, stage IV (4) AICD (automatic cardioverter/defibrillator) present (5) VT (ventricular tachycardia) (6) Seizure disorder (7) EF of 30 (8) Severe protein-calorie malnutrition (9) Pressure ulcer, hip, left, unstageable (10) Diabetes mellitus type II, uncontrolled Assessment/Plan valium prn for seizures comfortable comfort care Morphine for comfort pts sister understands the prognosis and agrees with comfort care and Morphine drip comfortable avoid blood testing Subjective ROS Limited/Unobtainable: Yes Interval Events: looks comfortable Allergies: Coded Allergies: No Known Allergies (Unverified , 03/07/17) Objective Last 24 Hour Vital Signs Date Time Temp Pulse Resp B/P (MAP) Pulse Ox O2 Delivery O2 Flow Rate FiO2 07/07/18 12:00 97.7 113 19 124/60 (81) 97 97.7 07/07/18 11:10 20 07/07/18 09:00 T-piece 07/07/18 08:00 97.3 110 19 109/67 (81) 97 97.3 07/07/18 08:00 20 07/07/18 06:51 T-piece 12.0 40 07/07/18 06:51 97 T-piece 12.0 40 07/07/18 04:46 20 07/07/18 04:00 98.4 111 19 99/52 (68) 97 98.4 07/07/18 03:21 20 07/07/18 01:06 95 T-piece 12.0 40 07/07/18 01:06 T-piece 12.0 40 07/07/18 00:00 98.0 114 21 111/58 (75) 95 98.0 07/06/18 22:32 20 07/06/18 21:00 T-piece 07/06/18 20:00 98.6 126 21 113/64 (80) 96 98.6 07/06/18 20:00 T-piece 12.0 40 07/06/18 20:00 96 T-piece 12.0 40 07/06/18 19:10 20 07/06/18 16:44 20 07/06/18 16:00 98.1 113 21 142/62 (88) 94 98.1 Intake and Output 07/06/18 07/07/18 19:00 07:00 Output Total 350 ml 400 ml Balance -350 ml -400 ml Output Urine Total 350 ml 400 ml General Appearance: cachetic HEENT: normocephalic, atraumatic Respiratory/Chest: chest wall non-tender, lungs clear, chest wall tender Cardiovascular: normal rate Abdomen: normal bowel sounds, soft, non tender Extremities: no cyanosis Skin: no rash Current Medications Medications (Trade) Dose Ordered Sig/Tameka Route PRN Reason Start Time Stop Time Status Last Admin Dose Admin Acetaminophen (Tylenol) 650 mg Q4H PRN ORAL fever 07/01/18 20:33 07/30/18 20:32 Diazepam (Valium) 5 mg Q6H PRN ORAL seizures 07/06/18 11:45 07/13/18 11:44 Levetiracetam (Keppra) 500 mg Q12HR GT 07/02/18 09:00 08/01/18 08:59 07/07/18 09:16 Miscellaneous Medication (HORSE STUD MANAGER Rate Change) 1 ea DAILY PRN MISC For Pain 07/06/18 16:34 07/08/18 16:33 Miscellaneous Medication (HORSE STUD MANAGER shift volume) 1 ea Q12HR@0700,1900 MISC 07/06/18 19:36 07/08/18 19:35 07/07/18 07:00 Morphine Sulfate 30 ml @ 0 mls/hr Q24H PRN IV For Pain 07/06/18 16:45 07/08/18 16:44 07/07/18 11:05 Morphine Sulfate (Morphine Sulfate) 4 mg Q1H PRN IV tachycardia> 20 07/01/18 20:33 07/08/18 20:32 Ondansetron HCl (Zofran) 4 mg Q6H PRN IVP Nausea & Vomiting 07/01/18 20:33 07/31/18 20:32 Shani Moses MD Jul 07, 2018 14:04
[2018-07-07] MEDS ORDERED: Morphine Sulfate 4mg/ml Inj (IV USE ONLY) IV PRN ×2 (14:30)
[2018-07-07] MEDS ORDERED: PCA Morphine 1mg/ml 30 ML IV PRN (16:45)
--- NOTE | 2018-07-07 18:32 | Internal Med Progress Note ---
Subjective Date of Service: Jul 07, 2018 Physician Name Aaron Solis Attending Physician Roland Box MD Current Medications Medications (Trade) Dose Ordered Sig/Tameka Route PRN Reason Start Time Stop Time Status Last Admin Dose Admin Acetaminophen (Tylenol) 650 mg Q4H PRN ORAL fever 07/01/18 20:33 07/30/18 20:32 Diazepam (Valium) 5 mg Q6H PRN ORAL seizures 07/06/18 11:45 07/13/18 11:44 Levetiracetam (Keppra) 500 mg Q12HR GT 07/02/18 09:00 08/01/18 08:59 07/07/18 09:16 Miscellaneous Medication (FLAME CUTTING MACHINE OPERATOR HELPER Rate Change) 1 ea DAILY PRN MISC For Pain 07/06/18 16:34 07/08/18 16:33 Miscellaneous Medication (FLAME CUTTING MACHINE OPERATOR HELPER shift volume) 1 ea Q12HR@0700,1900 MISC 07/06/18 19:36 07/08/18 19:35 07/07/18 07:00 Morphine Sulfate 30 ml @ 10 mls/hr Q24H PRN IV For Pain 07/07/18 14:15 07/09/18 14:14 07/07/18 16:14 Morphine Sulfate (Morphine Sulfate) 4 mg Q1H PRN IV RR > 20 07/07/18 14:30 07/08/18 20:32 Ondansetron HCl (Zofran) 4 mg Q6H PRN IVP Nausea & Vomiting 07/01/18 20:33 07/31/18 20:32 Allergies: Coded Allergies: No Known Allergies (Unverified , 03/07/17) ROS Limited/Unobtainable: No Constitutional: Reports: no symptoms HEENT: Reports: no symptoms Cardiovascular: Reports: no symptoms Respiratory: Reports: no symptoms Gastrointestinal/Abdominal: Reports: no symptoms Genitourinary: Reports: no symptoms 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: Reports: no symptoms Subjective 58 YO M with chronic respiratory failure, admitted with leukocytosis. Now UTI. Cover for Int Med-Dr Box. Patient now on comfort care. Discharge held over weekend-not accepted at [facility]. Patient must be on oral pain regimen and colonized urine per case management Objective Last Vital Signs Date Time Temp Pulse Resp B/P (MAP) Pulse Ox O2 Delivery O2 Flow Rate FiO2 07/07/18 16:30 21 07/07/18 13:08 T-piece 12.0 40 07/07/18 13:08 98 07/07/18 12:00 97.7 113 124/60 (81) 97.7 Intake and Output 07/06/18 07/07/18 19:00 07:00 Output Total 350 ml 400 ml Balance -350 ml -400 ml Output Urine Total 350 ml 400 ml Objective General Appearance: alert, mild distress, thin EENT: PERRL/EOMI, normal ENT inspection Neck: non-tender, normal alignment, supple Cardiovascular: normal peripheral pulses, normal rate, regular rhythm, no gallop/murmur, no JVD Respiratory/Chest: trach; respiratory distress, crackles/rales, rhonchi - bilaterally, expiratory wheezing Abdomen: normal bowel sounds, non tender, soft, no organomegaly, no mass Extremities: other - contractures Neurologic: manager china 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 normal Skin: normal pigmentation, warm/dry Assessment/Plan Problem List: (1) Hepatitis C (2) Dysphagia (3) UTI (urinary tract infection) Assessment & Plan: Multi drug resistant klebsiella pneumoniae. D/C amtibiiotics per ID (4) Pressure ulcer, hip, left, unstageable (5) Severe protein-calorie malnutrition (6) Sacral decubitus ulcer, stage IV Assessment & Plan: Await surgery consult. Continue antibiotics per ID (7) Chronic respiratory failure (8) Cerebral vascular disease (9) HTN (hypertension) (10) Anoxic brain injury (11) Atrial fibrillation (12) Seizure disorder Assessment & Plan: Continue Keppra (13) CHF (congestive heart failure) Assessment/Plan Comfort care per family request. Discharge plan: Not accepted at [facility] and family refused Hospice-see case management note. Aaron Solis MD Jul 07, 2018 18:31
[2018-07-08] MEDS: PCA Morphine 1mg/ml 30 ML IV PRN ×8 (00:34→22:28)
[2018-07-08] MEDS: PCA shift volume MISC SCH ×2 (07:14→19:15)
[2018-07-08] MEDS: levETIRAcetam 500mg/5ml Liquid GT SCH ×2 (08:10→20:18)
[2018-07-08 09:00] VITALS: BP 79/67
--- NOTE | 2018-07-08 09:27 | Internal Med Progress Note ---
Subjective Date of Service: Jul 08, 2018 Physician Name Aaron Solis Attending Physician Roland Box MD Current Medications Medications (Trade) Dose Ordered Sig/Tameka Route PRN Reason Start Time Stop Time Status Last Admin Dose Admin Acetaminophen (Tylenol) 650 mg Q4H PRN ORAL fever 07/01/18 20:33 07/30/18 20:32 Diazepam (Valium) 5 mg Q6H PRN ORAL seizures 07/06/18 11:45 07/13/18 11:44 Levetiracetam (Keppra) 500 mg Q12HR GT 07/02/18 09:00 08/01/18 08:59 07/08/18 08:10 Miscellaneous Medication (PRINTING TABLE HAND Rate Change) 1 ea DAILY PRN MISC For Pain 07/06/18 16:34 07/08/18 16:33 Miscellaneous Medication (PRINTING TABLE HAND shift volume) 1 ea Q12HR@0700,1900 MISC 07/06/18 19:36 07/08/18 19:35 07/08/18 07:14 Morphine Sulfate 30 ml @ 10 mls/hr Q24H PRN IV For Pain 07/08/18 00:30 07/10/18 00:29 07/08/18 06:51 Morphine Sulfate (Morphine Sulfate) 4 mg Q1H PRN IV RR > 20 07/07/18 14:30 07/08/18 20:32 Ondansetron HCl (Zofran) 4 mg Q6H PRN IVP Nausea & Vomiting 07/01/18 20:33 07/31/18 20:32 Allergies: Coded Allergies: No Known Allergies (Unverified , 03/07/17) ROS Limited/Unobtainable: Yes Subjective 58 YO M with chronic respiratory failure, admitted with leukocytosis. Now UTI. Cover for Int Med-Dr Box. Patient now on comfort care. Discharge held over weekend-not accepted at [facility]. Patient must be on oral pain regimen and colonized urine per case management Objective Last Vital Signs Date Time Temp Pulse Resp B/P (MAP) Pulse Ox O2 Delivery O2 Flow Rate FiO2 07/08/18 08:38 T-piece 07/08/18 07:21 97.7 07/08/18 06:51 20 07/08/18 02:02 94 12.0 40 07/07/18 12:00 113 124/60 (81) Intake and Output 07/07/18 07/08/18 19:00 07:00 Intake Total 90 ml Output Total 350 ml Balance -350 ml 90 ml IV Total 90 ml Output Urine Total 350 ml Objective General Appearance: alert, mild distress, thin EENT: PERRL/EOMI, normal ENT inspection Neck: non-tender, normal alignment, supple Cardiovascular: normal peripheral pulses, normal rate, regular rhythm, no gallop/murmur, no JVD Respiratory/Chest: trach; respiratory distress, crackles/rales, rhonchi - bilaterally, expiratory wheezing Abdomen: normal bowel sounds, non tender, soft, no organomegaly, no mass Extremities: other - contractures Neurologic: analytical clerk 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 normal Skin: normal pigmentation, warm/dry Assessment/Plan Problem List: (1) Hepatitis C (2) Dysphagia (3) UTI (urinary tract infection) Assessment & Plan: Multi drug resistant klebsiella pneumoniae. D/C amtibiiotics per ID (4) Pressure ulcer, hip, left, unstageable (5) Severe protein-calorie malnutrition (6) Sacral decubitus ulcer, stage IV Assessment & Plan: Await surgery consult. Continue antibiotics per ID (7) Chronic respiratory failure (8) Cerebral vascular disease (9) HTN (hypertension) (10) Anoxic brain injury (11) Atrial fibrillation (12) Seizure disorder Assessment & Plan: Continue Keppra (13) CHF (congestive heart failure) Assessment/Plan Comfort care per family request. Discharge plan: Not accepted at [facility] and family refused Hospice-see case management note. Aaron Solis MD Jul 08, 2018 09:27
--- NOTE | 2018-07-08 11:58 | Pulmonology Progress Note ---
Assessment/Plan Problems: (1) Need for comfort care (2) Anoxic brain injury (3) Sacral decubitus ulcer, stage IV (4) AICD (automatic cardioverter/defibrillator) present (5) VT (ventricular tachycardia) (6) Seizure disorder (7) EF of 30 (8) Severe protein-calorie malnutrition (9) Pressure ulcer, hip, left, unstageable (10) Diabetes mellitus type II, uncontrolled Assessment/Plan comfortable valium prn for seizures comfort care Morphine for comfort pts sister understands the prognosis and agrees with comfort care and Morphine drip comfortable avoid blood testing Subjective ROS Limited/Unobtainable: No Constitutional: Reports: no symptoms HEENT: Repors: no symptoms Respiratory: Reports: no symptoms Allergies: Coded Allergies: No Known Allergies (Unverified , 03/07/17) Objective Last 24 Hour Vital Signs Date Time Temp Pulse Resp B/P (MAP) Pulse Ox O2 Delivery O2 Flow Rate FiO2 07/08/18 10:37 97.3 07/08/18 10:07 97.3 07/08/18 09:00 97.3 62 10 79/67 (71) 95 97.3 07/08/18 08:38 T-piece 07/08/18 08:00 10 07/08/18 06:51 97.7 07/08/18 06:51 20 07/08/18 03:41 21 07/08/18 02:02 94 T-piece 12.0 40 07/08/18 02:02 T-piece 12.0 40 07/08/18 00:34 21 07/07/18 21:00 T-piece 07/07/18 20:40 21 07/07/18 20:27 95 T-piece 12.0 40 07/07/18 20:27 T-piece 12.0 40 07/07/18 16:30 21 07/07/18 16:29 20 07/07/18 13:08 T-piece 12.0 40 07/07/18 13:08 98 T-piece 12.0 40 07/07/18 12:00 97.7 113 19 124/60 (81) 97 97.7 Intake and Output 07/07/18 07/08/18 19:00 07:00 Intake Total 90 ml Output Total 350 ml Balance -350 ml 90 ml IV Total 90 ml Output Urine Total 350 ml General Appearance: WD/WN HEENT: normocephalic, atraumatic Respiratory/Chest: chest wall non-tender, lungs clear Cardiovascular: normal rate Abdomen: normal bowel sounds, soft, non tender Genitourinary: normal external genitalia Skin: no rash Current Medications Medications (Trade) Dose Ordered Sig/Tameka Route PRN Reason Start Time Stop Time Status Last Admin Dose Admin Acetaminophen (Tylenol) 650 mg Q4H PRN ORAL fever 07/01/18 20:33 07/30/18 20:32 Diazepam (Valium) 5 mg Q6H PRN ORAL seizures 07/06/18 11:45 07/13/18 11:44 Levetiracetam (Keppra) 500 mg Q12HR GT 07/02/18 09:00 08/01/18 08:59 07/08/18 08:10 Miscellaneous 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
[2018-07-08] MEDS ORDERED: PCA Morphine 1mg/ml 30 ML IV PRN (14:15)
[2018-07-09] MEDS: PCA Morphine 1mg/ml 30 ML IV PRN ×5 (01:50→14:51)
[2018-07-09] MEDS: levETIRAcetam 500mg/5ml Liquid GT SCH (08:12)
[2018-07-09 09:00] VITALS: BP 71/37
--- NOTE | 2018-07-09 11:59 | Pulmonology Progress Note ---
Assessment/Plan Problems: (1) Need for comfort care (2) Anoxic brain injury (3) Sacral decubitus ulcer, stage IV (4) AICD (automatic cardioverter/defibrillator) present (5) VT (ventricular tachycardia) (6) Seizure disorder (7) EF of 30 (8) Severe protein-calorie malnutrition (9) Pressure ulcer, hip, left, unstageable (10) Diabetes mellitus type II, uncontrolled Assessment/Plan comfortable valium prn for seizures comfort care Morphine for comfort pts sister understands the prognosis and agrees with comfort care and Morphine drip comfortable avoid blood testing Subjective ROS Limited/Unobtainable: Yes Allergies: Coded Allergies: No Known Allergies (Unverified , 03/07/17) Objective Last 24 Hour Vital Signs Date Time Temp Pulse Resp B/P (MAP) Pulse Ox O2 Delivery O2 Flow Rate FiO2 07/09/18 11:42 12 07/09/18 11:41 97.6 07/09/18 11:12 10 07/09/18 09:00 T-piece 07/09/18 09:00 97.6 74 12 71/37 (48) 97 97.6 07/09/18 08:42 97.3 07/09/18 08:12 97.3 07/09/18 08:12 10 07/09/18 08:00 10 07/09/18 07:00 98 T-piece 12.0 40 07/09/18 07:00 T-piece 12.0 40 07/09/18 04:00 10 07/09/18 00:00 12 07/08/18 23:42 T-piece 12.0 40 07/08/18 23:42 95 T-piece 12.0 40 07/08/18 21:00 T-piece 07/08/18 20:20 94 T-piece 12.0 40 07/08/18 20:20 T-piece 12.0 40 07/08/18 20:00 12 07/08/18 16:26 97.3 07/08/18 16:00 10 07/08/18 13:18 97.3 07/08/18 13:07 95 T-piece 12.0 40 07/08/18 13:07 T-piece 12.0 40 07/08/18 12:00 10 Intake and Output 07/08/18 07/09/18 19:00 07:00 Output Total 50 ml 200 ml Balance -50 ml -200 ml Output Urine Total 50 ml 200 ml General Appearance: cachetic HEENT: normocephalic, atraumatic Respiratory/Chest: chest wall non-tender, lungs clear Cardiovascular: normal peripheral pulses, normal rate Abdomen: normal bowel sounds, soft, non tender Genitourinary: normal external genitalia Skin: no rash 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: income tax manager 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 normal Lymphatic: no neck adenopathy Current Medications Medications (Trade) Dose Ordered Sig/Tameka Route PRN Reason Start Time Stop Time Status Last Admin Dose Admin Acetaminophen (Tylenol) 650 mg Q4H PRN ORAL fever 07/01/18 20:33 07/30/18 20:32 Diazepam (Valium) 5 mg Q6H PRN ORAL seizures 07/06/18 11:45 07/13/18 11:44 Levetiracetam (Keppra) 500 mg Q12HR GT 07/02/18 09:00 08/01/18 08:59 07/09/18 08:12 Morphine Sulfate 30 ml @ 10 mls/hr Q24H PRN IV For Pain 07/08/18 00:30 07/10/18 00:29 07/09/18 11:41 Ondansetron HCl (Zofran) 4 mg Q6H PRN IVP Nausea & Vomiting 07/01/18 20:33 07/31/18 20:32 Shani Moses MD Jul 09, 2018 11:59
--- NOTE | 2018-07-09 17:54 | Internal Med Progress Note ---
Subjective Date of Service: Jul 09, 2018 Physician Name IrmaAaron Attending Physician Roland Box MD Current Medications Medications (Trade) Dose Ordered Sig/Tameka Route PRN Reason Start Time Stop Time Status Last Admin Dose Admin Acetaminophen (Tylenol) 650 mg Q4H PRN ORAL fever 07/01/18 20:33 07/30/18 20:32 Diazepam (Valium) 5 mg Q6H PRN ORAL seizures 07/06/18 11:45 07/13/18 11:44 Levetiracetam (Keppra) 500 mg Q12HR GT 07/02/18 09:00 08/01/18 08:59 07/09/18 08:12 Morphine Sulfate 30 ml @ 10 mls/hr Q24H PRN IV For Pain 07/08/18 00:30 07/10/18 00:29 07/09/18 14:51 Ondansetron HCl (Zofran) 4 mg Q6H PRN IVP Nausea & Vomiting 07/01/18 20:33 07/31/18 20:32 Allergies: Coded Allergies: No Known Allergies (Unverified , 03/07/17) ROS Limited/Unobtainable: Yes Subjective 58 YO M with chronic respiratory failure, admitted with leukocytosis. Now UTI. Cover for Int Med-Dr Box. Patient @ 1611 Objective Last Vital Signs Date Time Temp Pulse Resp B/P (MAP) Pulse Ox O2 Delivery O2 Flow Rate FiO2 07/09/18 16:00 12 07/09/18 15:21 97.6 07/09/18 13:05 T-piece 12.0 40 07/09/18 13:05 99 07/09/18 09:00 74 71/37 (48) Intake and Output 07/08/18 07/09/18 19:00 07:00 Output Total 50 ml 200 ml Balance -50 ml -200 ml Output Urine Total 50 ml 200 ml Assessment/Plan Problem List: (1) Hepatitis C (2) Dysphagia (3) UTI (urinary tract infection) Assessment & Plan: Multi drug resistant klebsiella pneumoniae. D/C amtibiiotics per ID (4) Pressure ulcer, hip, left, unstageable (5) Severe protein-calorie malnutrition (6) Sacral decubitus ulcer, stage IV Assessment & Plan: Await surgery consult. Continue antibiotics per ID (7) Chronic respiratory failure (8) Cerebral vascular disease (9) HTN (hypertension) (10) Anoxic brain injury (11) Atrial fibrillation (12) Seizure disorder Assessment & Plan: Continue [place] (13) CHF (congestive heart failure) Assessment/Plan Patient at 1611. Sister, Steven Haines was called. No answer. Left message for return call. Aaron Solis MD Jul 09, 2018 17:54
--- NOTE | 2018-07-10 16:31 | Discharge Summary ---
Discharge Summary Discharge Summary _ DATE OF ADMISSION: 06/29/2018 DATE OF DISCHARGE: 07/09/2018 BRIEF SUMMARY: Patient is an unfortunate 58-year-old -English male with history of anoxic brain injury and vent dependent respiratory failure , presented to ED with chief complaint of elevated white count and urinary tract infection. Patient is a resident of [facility], according to staff, patient was having low-grade fevers. CBC revealed leukocytosis and urinalysis revealed urine infection. He was then transported to [facility] for further evaluation. He has medical history significant for respiratory failure, tracheostomy, hypertension, anoxic brain injury, AICD, seizure disorder, atrial fibrillation, congestive heart failure, diabetes mellitus, old CVA, anemia, dysphagia with PEG and had multiple stage IV decubitus ulcer. On evaluation at ED, patient was hypotensive, blood pressure was 90/60. Blood work showed leukocytosis, WBC of 16. He was given IV fluid therapy with improvement of blood pressure. He was pancultured and was started on broad- spectrum antibiotics. Septic workup initiated. Lactic acid was 2.4. He was then admitted for sepsis. He was admitted to ICU. He was on ventilator support. He was continued on IV antibiotics. Patient was febrile. He came in with multiple decubitus pressure sores. He has stage IV sacral decubitus ulcer, stage IV left hip decubitus ulcer, stage IV left buttock decubitus ulcer, stage IV right hip decubitus ulcer, stage IV right buttock decubitus ulcer, and bilateral heel and foot wounds in multiple ulcers stage I- IV. He was seen by surgeon. No surgical intervention was indicated. He was given wound care. Patient had poor prognosis in healing due to severe contractures, low nutrition level, likely chronic osteomyelitis and difficulty in offloading as he would always be placed on direct pressure on one of the ulcers. Patient with sepsis likely secondary to urinary tract infection. Urine culture showed MDR Klebsiella pneumonia sensitive to tigecycline. He had worsening of leukocytosis, however, fever resolved. Vancomycin and cefepime were discontinued. He was placed on tigecycline. Patient's sister understood the prognosis and wanted patient to be placed on comfort care and morphine drip. Blood draws were discontinued. He was taken off antibiotics. He was placed on morphine drip. He was taken off ventilatory support. He was planned for discharge back to long term under comfort care, however, discharge was canceled as patient was not accepted back to the long term. He was continued on comfort care. He eventually . FINAL DIAGNOSES: Sepsis possibly secondary to MDR UTI Anoxic brain injury Chronic respiratory failure ventilator dependent Cerebrovascular disease Seizure disorder Atrial fibrillation Congestive heart failure Hepatitis C Dysphagia with PEG Multiple decubiti pressure ulcer, as stated above, present on admission AICD Severe protein calorie malnutrition Diabetes mellitus type 2 uncontrolled Comfort care/palliative care DISPOSITION: Patient . I have been assigned to dictate discharge summary on this account, and I was not involved in the patient's management. Miriam Lazo NP Jul 10, 2018 16:31
== END 2018-07-09 16:30 | disposition expired | DRG 720 ==
LOC: EDBD 16:31 → EMR 19:35 → ICU 20:02 → EDBEDREQ 20:37 → 2W 06-30 18:45 → 4E 07-01 20:30
PROC: 5A1945Z Respiratory Ventilation, 24-96 Consecutive Hours (ICD-10-PCS; principal; 2018-06-29)
DX: A41.9 Sepsis, unspecified organism (principal); J96.20 Acute and chronic respiratory failure, unspecified whether with hypoxia or hypercapnia; R65.21 Severe sepsis with septic shock; G93.1 Anoxic brain damage, not elsewhere classified; Z99.11 Dependence on respirator [ventilator] status; E43 Unspecified severe protein-calorie malnutrition; L89.154 Pressure ulcer of sacral region, stage 4; I48.91 Unspecified atrial fibrillation; L89.220 Pressure ulcer of left hip, unstageable; I47.2 Ventricular tachycardia; Z93.0 Tracheostomy status; G40.909 Epilepsy, unspecified, not intractable, without status epilepticus; N39.0 Urinary tract infection, site not specified; Z93.1 Gastrostomy status; I11.0 Hypertensive heart disease with heart failure; I50.9 Heart failure, unspecified; Z95.810 Presence of automatic (implantable) cardiac defibrillator; E11.649 Type 2 diabetes mellitus with hypoglycemia without coma; R13.10 Dysphagia, unspecified; D64.9 Anemia, unspecified; Z68.1 Body mass index [BMI] 19.9 or less, adult; Z51.5 Encounter for palliative care; M86.60 Other chronic osteomyelitis, unspecified site; Z86.73 Personal history of transient ischemic attack (TIA), and cerebral infarction without residual deficits; B18.2 Chronic viral hepatitis C
CPT/HCPCS: 36415; 71045; 80048; 80053; 80202; 81003; 82550; 82962; 83605; 83735; 84100; 84134; 84484; 85007; 85025; 87040; 87070; 87081; 87086; 87181; 87205; 93005; 94002; 94003; 94760